=== PATIENT | male | born 1935 | race Caucasian/White ===

== ENCOUNTER 2025-05-20 18:52 | Inpatient (IN) | payer MEDICARE, OTHER, SELFPAY ==
[2025-05-20 18:06] VITALS: BP 142/91; PULSE 96; RESP 17; TEMP 36.7; O2SAT 91; BMI 22.6
[2025-05-20 19:30] VITALS: PULSE 95; RESP 20; O2SAT 94
--- NOTE | 2025-05-20 20:14 | NURSING ---
Consulted Dr. Wiggins via secure text regarding medications that could not be crushed for NG tube medication administration. Per Dr. Wiggins, discontinue Alfuzosin and Bisacodyl. Secure text viewed and verified.
[2025-05-20 21:14] VITALS: BP 141/81; PULSE 101
[2025-05-20 21:17] VITALS: PULSE 101
[2025-05-20] MEDS: Senna Tablet 1 TABLET NG (21:17)
[2025-05-20] MEDS: Jevity 1.5 1,000 ML 50 ML GT (21:17)
--- OUTSIDE RECORDS SUMMARY | 2025-05-20 21:17 | XMS RPT_ITS | CCD ---
Author Organization [facility] Care Team Providers Care Truer Pinion And Wheel Name Role Phone Don Barrera Unavailable Don Barrera Primary Care Provider Vijay Viveros Unavailable VIJAY VIVEROS Referring Unavailab le DON BARRERA Primary Care Unavaila GLORIA Herr Attending Unavailable DON BARRERA Primary Care Unavaila ble Don Barrera Unavailable Unavailable Barrera Christopher D Unavailable Unavailable Leonardo Ballesteros Unavailable Unavailable ColindresRobb W Unavailable Unavailable Chandler, Kelli Unavailable Unavailable Callaway, Dina Unavailable Unavailable Adelita Linne Unavailable Unavailable Isidoro Quezada Unavailable Unavailable Dioni Elmore Unavailable Unavailable Barrera, Christopher D Unavailable Unavailable [facility] NURSE, [id number] Unavailable Unavailable Colindres II, Robb Unavailable Unavailable Melody Joseph Unavailable Unavailable Isidoro Al Unavailable Unavailable Dew, Santy Unavailable Unavailable Christo, Martine Unavailable Unavailable HEATHER PAREDES Admitting Unavailable HEATHER PAREDES Referring Unavailable DON BARRERA Primary Care Unavaila ble Don Barrera Unavailable Unavailable Don Barrera Primary Care Provider Vijay Viveros Unavailable Don Barrera MD Unavailable Unavailable BarreraAlokophdequan Baptiste Unavailable Unavailable Leonardo Ballesteros Unavailable Unavailable Colindres, Robb W Unavailable Unavailable Barrera Christopher D Unavailable Unavailable Unavailable Don Barrera MD Primary Care Provider Vijay Viveros MD Unavailable Wilson SEVILLA, Vijay De La Paz Unavailable Vijay Viveros MD Unavailable Unavailable Unavailable Don Barrera MD Primary Care Provider Vijay Viveros MD Unavailable Don Barrera Unavailable Heike Adams Unavailable Unavailable Otoniel Salcedo Unavailable Unavailable Yuri SEVILLA, Don Bowman Primary Care Provider Vijay Viveros MD Unavailable Yuri SEVILLA, Don Bowman Primary Care Provider Don Barrera MD Primary Care Provider [phone] Don Barrera MD Unavailable [phone] Yuri, Dr. Don Bowman Primary Care Unav ailmaisha Barrera, Dr. Don Bowman Attending Omairav ailmaisha Adams, Ms. Heike Dickens Attending Donnie Barrera, Dr. Don Bowman Primary Care Abhay Barrera, Dr. Don Bowman Primary Care Una coral Cotto, Dr. Earle Reyes Attending Unavaila sung Adams, Ms. Heike Dickens Attending Donnie Barrera, Dr. Don Bowman Primary Care Unav Don Alexander MD Unavailable [phone] Don Barrera MD Primary Care Provider [phone] Howard Soria OD Unavailable Don Barrera MD Primary Care Provider Don Barrera MD Unavailable [phone] Don Barrera MD Primary Care Provider Don Barrera MD Primary Care Provider [phone] DELTA BANGURA Attending Unavailable DELTA BANGURA Referring Unavailable DON BARRERA Primary Care UnavailDon Villalobos MD Unavailable [phone] Don Barrera MD Primary Care Provider SANCHO MENDOZA., ELADIO Attending Unavailable BARRERA, DON BOWMAN Primary Care Unavaila ble BARRERA, DON BOWMAN Primary Care Unavaila ble SANCHO JR., ELADIO Attending Unavailable BARRERA, DON BOWMAN Primary Care Unavaila ble SANCHO JR., ELADIO Attending Unavailable BARRERA, DON BOWMAN Primary Care Unavaila ble SANCHO JR., ELADIO Attending Unavailable BARRERA, CHRISTOPHER D Attending Unavailable BARRERA, CHRISTOPHER D Referring Unavailable BARRERA, CHRISTOPHER D Primary Care Unavailable BRENDON, OTONIEL Attending Unavailable BARRERA, CHRISTOPHER D Primary Care Unavailable BARRERA, CHRISTOPHER D Attending Unavailable BARRERA, CHRISTOPHER D Primary Care Unavailable BARRERA, CHRISTAILYNER D Attending Unavailable BARRERA, CHRISTOPHER D Referring Unavailable BARRERA, CHRISTOPHER D Primary Care Unavailable BARRERA, CHRISTAILYNER D Attending Unavailable BARRERA, CHRISTOPHER D Primary Care Unavailable BARRERA, CHRISTOPHER D Primary Care Unavailable SANTIAGO MENENDEZ Attending Unavailable BARRERA, CHRISTOPHER D Referring Unavailable BARRERA, CHRISTOPHER D Primary Care Unavailable BARRERA, CHRISTOPHER D Referring Unavailable BARRERA, CHRISTOPHER D Primary Care Unavailable LINCOLN KING Referring Unavailable BARRERA, CHRISTOPHER D Primary Care Unavailable BARRERA, CHRISTOPHER D Primary Care Unavailable CHRISTINELINCOLN E Attending Unavailable BRENDON, OTONIEL Referring Unavailable BARRERA, CHRISTOPHER D Primary Care Unavailable MACK GALEANA Referring Unavailable BARRERA, CHRISTOPHER D Primary Care Unavailable BARRERA, CHRISTOPHER D Referring Unavailable BARRERA, CHRISTOPHER D Primary Care Unavailable BARRERA, CHRISTOPHER D Referring Unavailable BARRERA, CHRISTOPHER D Primary Care Unavailable LINCOLN PATTERSON Attending Unavailable LINCOLN PATTERSON Admitting Unavailable BARRERA, DON BOWMAN Primary Care Unavaila ble BARRERA, CHRISTOPHER D Primary Care Unavailable BARRERA, CHRISTOPHER D Primary Care Unavailable BARRERA, CHRISTOPHER D Primary Care Unavailable SANTIAGO MENENDEZ Referring Unavailable BARRERA, CHRISTOPHER D Primary Care Unavailable FATOU ADORNO Consulting Unavailable KRISTY GIRALDO Admitting Unavailable RUSSELL MONTOYA Attending Unavailable LEONARDO BERGER Referring Unavailable BARRERA, CHRISTOPHER D Primary Care Unavailable SANTIAGO MENENDEZ Referring Unavailable DON BARRERA Primary Care Unavailable Medications Current Medications Medication Drug Class(es) Dates Sig (Normalized) Sig (Original) acetaminophen 325 mg oral tablet (20 sources) Start: 05-20-2025 acetaminophen (Tylenol) 325 mg tablet Indications: Fall, initial encounter , Open fracture of roof of right orbit, initial encounter (Multi) 2 tablets (650 mg) by nasogastric tube route every 6 hours. 05/20/2025 Active Start: 05-11-2025 End: 05-16-2025 650 mg, nasoduodenal tube, E very 6 hours scheduled, First dose (after last modification) on 05/16/25 at 0900, If ordered PRN for pain, nurse is permitted to administer this medication for higher pain scores based on patient preference? Yes Start: 11-11-2023 End: 11-11-2023 acetaminophen (Tylenol) tabl et 650 mg Start: 09-11-2019 End: 09-21-2019 take 2 tablets by mouth every four hours acetaminophen (TYLENOL) 325 MG tablet Take 2 (two) tablets (650 mg total) by mouth every 4 (four) hours for 10 days . 60 tablet 0 09/11/2019 09/21/2019 Start: 09-10-2019 End: 09-11-2019 take 650 mg by mouth every four hours 650 mg, Oral, Every 4 hours scheduled, First dose on 09/10/19 at 1600 take 3000 [IU] by [facility] once daily ACETAMINOPHEN (TYLENOL EXTRA STRENGTH ORAL) Take 3,000 Units by mouth once daily. 0 Active End: 09-11-2019 Acetaminophen 500 MG Oral Ta blet Refills: 0 DO Active Comment on above: Take 3,000 Units by mouth once daily. acetaminophen 325 mg / oxyCODONE hydrochloride 5 mg oral tablet (10 sources) Opioid Agonist Start: 04-13-20 End: 05-09-20 oxyCODONE-acetamino phen (PERCOCET) 5-325 mg per tablet alendronic acid 70 mg oral tablet (11 sources) Bisphosphonate Start: 10-03-20 End: 09-28-20 take 1 tablet by mouth every week alendronate (FOSAMAX) 70 mg tablet Take 70 mg by mouth one time a week. 0 10/03/2020 Active Start: 08-20-2020 End: 05-09-2021 alendronate (FOSAMAX) 70 MG tablet Take 1 (one) tablet (70 mg total) by mouth every 7 days (full glass of water on an empty stomach). Remain upright and do not eat for next 30 min . 4 tablet 2 08/20/2020 05/09/2021 Discontinued Comment on above: Take 1 tablet by miquel th one time a week. 24 hr alfuzosin hydrochloride 10 mg extended release oral tablet (20 sources) alpha-Adrenergic Eneida Start: 07-03-2024 take 1 tablet by mouth once daily alfuzosin (Uroxatral) 10 mg 24 hr tablet Indications: Benign prostatic hyperplasia with lower urinary tract symptoms, symptom details unspecified TAKE 1 TABLET BY MOUTH ONCE DAILY DO NOT CRUSH, CHEW, OR SPLIT 90 tablet 3 07/03/2024 Active Start: 08-06-2023 End: 12-16-2023 take 1 tablet by mouth once daily alfuzosin SR (UROXATRAL) 10 mg 24 hr tablet Take 1 tablet by mouth once daily. 0 08/06/2023 Active Comment on above: Take 1 tablet by miquel once daily. amitriptyline hydrochloride 10 mg oral tablet (20 sources) Tricyclic Antidepressant Start: 024 End: take 1 tablet by mouth once daily at bedtime amitriptyline (Elavil) 10 mg tablet Indications: Migraine with visual aura Take 1 tablet (10 mg) by mouth once daily at bedtime. 90 tablet 3 09/01/2024 09/01/2025 Active amLODIPine 5 mg oral tablet (20 sources) Dihydropyridine Calcium Channel Eneida Start: 014 End: take 1 tablet by mouth once daily amLODIPine (Norvasc) 5 mg tablet Indications: Hypertension, unspecified type Take 1 tablet (5 mg) by mouth once daily. 90 tablet 3 09/01/2024 09/01/2025 Active amLODIPine Besyl ate TABS 5 mg-1 tab daily Refills: 0 DO Active amLODIPine Besyl ate TABS 5 mg-1 tab daily Refills: 0 Active Comment on above: 5 mg every morning. amoxicillin 875 mg oral tablet (3 sources) Penicillin-class Antibacterial Start: 4 End: take 1 tablet by mouth twice daily in the morning amoxicillin (Amoxil) 875 mg tablet Indications: Acute non-recurrent maxillary sinusitis Take 1 tablet (875 mg) by mouth 2 times a day for 10 days. 20 tablet 09/02/2024 9:35 AM EST 09/01/2024 09/12/2024 Active Start: 11-04-2021 End: 11-15-2021 take 1 capsule by mouth three times daily Amoxicillin 500 MG Oral Capsule TAKE 1 CAPSULE 3 TIMES DAILY UNTIL GONE. Quantity: 21 Refills: 1 Ordered: 04-Nov-2021 David Sheppard MD Start : 04-Nov-2021 End : 15-Nov-2021 Complete aspirin 81 mg chewable tablet (20 sources) Nonsteroidal Anti-inflammatory Drug Start: 05-17-2025 take 81 mg by mouth once daily 81 mg, oral, Daily, First dose on 05/17/25 at 1530 Start: 01-10-2021 End: 05-07-2025 take 1 tablet by mouth once daily aspirin 325 mg tablet Take 1 tablet (325 mg) by mouth once daily. 01/10/2021 05/07/2025 Discontinued (Therapy completed) Start: 01-10-2021 aspirin 325 mg tablet Take by mouth q 24 HR. 0 01/10/2021 Active Start: 09-10-2019 End: 10-11-2019 take 1 tablet by mouth twice daily aspirin 325 MG EC tablet Take 1 (one) tablet (325 mg total) by mouth 2 (two) times a day . 60 tablet 0 09/11/2019 10/11/2019 Active End: 09-11-2019 take 1 tablet by mouth once daily aspirin 81 mg EC tablet Take 1 tablet (81 mg) by mouth once daily. Active take 1 tablet by miquel th once daily aspirin 325 mg oral delayed release tablet ; 1 tab(s) orally once a day Quantity: 0 Refills: 0 Ordered: 23-Sep-2022 Shires, Paige Generic Substitution Allowed Aspirin 81 MG TA BS TAKE 1 TABLET DAILY. Refills: 0 DO Active Comment on above: Take by mouth q 24 H R. aspirin 81 mg / calcium carbonate 777 mg oral tablet (16 sources) Platelet Aggregation Inhibitor, Nonsteroidal Anti-inflammatory Drug End: 05-09-20 21 take 1 tablet by mouth every twenty-four hours aspirin-calcium carbonate 81 mg-300 mg calcium(777 mg) Tab Take 1 Unspecified by mouth daily . 0 05/09/2021 Discontinued benazepril hydrochloride 40 mg oral tablet (20 sources) Angiotensin Converting Enzyme Inhibitor Start: 09-08-20 End: 09-01-20 take 1 tablet by mouth once daily benazepril (Lotensin) 40 mg tablet Indications: Hypertension, unspecified type Take 1 tablet (40 mg) by mouth once daily. 90 tablet 3 09/01/2024 09/01/2025 Active take 2 tablets by mouth once sid ly benazepril 20 mg oral tablet ; 2 tab(s) orally once a day Quantity: 0 Refills: 0 Ordered: 12-Apr-2020 Mily Amado Generic Substitution Allowed Comment on above: 40 mg every morning. bisacodyl 5 mg delayed release oral tablet (2 sources) Stimulant Laxative Star t: 04-22 take 1 tablet by mouth once daily as needed for constipation bisacodyl (Dulcolax) 5 mg EC tablet Indications: Fall, initial encounter , Open fracture of roof of right orbit, initial encounter (Multi) Take 1 tablet (5 mg) by mouth once daily as needed for constipation. Do not crush, chew, or split. 05/20/2025 Active Carboxymethylcellulose (3 sources) take 1 drop(s) into the eye(s) twice daily CARBOXYMETHYLCELLULOSE SODIUM (REFRESH TEARS OPHTHALMIC) Use 1 Drop in eyes twice daily. Both eyes 0 Active Comment on above: Use 1 Drop in eyes t wice daily. Both eyes cholecalciferol 0.125 mg oral tablet (3 sources) Vitamin D Star t: 04-23 take 1 tablet by mouth once daily cholecalciferol (Vitamin D-3) 125 mcg (5,000 units) tablet Indications: Fall, initial encounter , Open fracture of roof of right orbit, initial encounter (Multi) Take 1 tablet (125 mcg) by mouth once daily. 05/21/2025 Active Start: 05-16-2025 125 mcg, nasod uodenal tube, Daily, First dose (after last modification) on 05/16/25 at 0900 Start: 05-13-2025 End: 05-13-2025 take 50 ug by mouth once daily 50 mcg, oral, Daily, Fi rst dose on Sun05/13/25 at 1100 chondroitin sulfates 400 mg / glucosamine hydrochloride 500 mg oral tablet (20 sources) End: 05-09-2021 take 1 tablet by mouth three times daily glucosamine-chondroitin 500-400 mg tablet Take 1 tablet by mouth 3 (three) times a day . 0 05/09/2021 Discontinued doxycycline monohydrate 100 mg oral capsule (4 sources) Tetracycline- class Drug Start: 09-27-2023 End: 11-05-2023 take 1 capsule by mouth twice daily at mealtime doxycycline (Monodox) 100 mg capsule Take 1 capsule (100 mg) by mouth 2 times a day with food for 7 days 14 capsule 0 09/27/2023 11/05/2023 Discontinued (Med List Cleanup) 0.3 ml enoxaparin sodium 100 mg/ml prefilled syringe (2 sources) Low Molecular Weight Heparin Start: 05-21-2025 End: 06-20-2025 inject 0.3 mL by subcutaneous injection every twelve hours enoxaparin (Lovenox) 30 mg/0.3 mL syringe Indications: Fall, initial encounter , Open fracture of roof of right orbit, initial encounter (Multi) Inject 0.3 mL (30 mg) under the skin every 12 hours. 05/21/2025 06/20/2025 Active Start: 05-13-2025 inject 30 mg by subc utaneous injection every twelve hours 30 mg, subcutaneous, Every 12 hours scheduled, First dose on Sun05/13/25 at 1200 escitalopram 5 mg oral tablet (20 sources) Serotonin Reuptake Inhibitor Start: 11-19-2023 End: 09-01-2025 take 1 tablet by mouth once daily escitalopram (Lexapro) 5 mg tablet Indications: MARIANGEL (generalized anxiety disorder) Take 1 tablet (5 mg) by mouth once daily. 90 tablet 3 09/01/2024 09/01/2025 Active fluticasone propionate 0.05 mg/actuat metered dose nasal spray (20 sources) Corticosteroid End: 11-01-2023 fluticasone (Flonase) 50 mcg/actuation nasal spray Administer into affected nostril(s) once every 24 hours. 0 11/01/2023 Discontinued (Therapy completed) End: 05-09-2021 take 2 doses nasal route once daily fluticasone propionate (FLONASE) 50 mcg/actuation nasal spray Instill 2 Unspecified into each nostril daily . 0 05/09/2021 Discontinued Comment on above: Use in the nose q 24 HR. folic acid 1 mg oral tablet (20 sources) Start: 10-06-2022 End: 09-01-2025 take 1 tablet by mouth once daily folic acid (Folvite) 1 mg tablet Indications: Vertigo , Palpitations Take 2 tablets (2 mg) by mouth once daily. 180 tablet 3 09/01/2024 09/01/2025 Active Start: 09-10-2019 End: 09-11-2019 take 2 mg by mouth once daily 2 mg, Oral, Daily, First dose on Sun09/10/19 at 1600 take 1 mg by mouth twice daily F OLIC ACID ORAL Take 1 mg by mouth twice daily. 0 Active take 2 tablets by mo uth once daily folic acid 1 mg tablet Take 2 mg by mouth once daily. 0 Active Comment on above: Take 1 mg by mouth t wice daily. Take 2 mg by mouth o nce daily. 24 hr isosorbide mononitrate 30 mg extended release oral tablet (13 sources) Start: 11-04-2014 End: 04-22-2018 isosorbide mononitrate ER (IMDUR) 30 mg 24 hr tablet 30 mg every morning. 0 11/04/2014 Active Start: 11-04-2014 End: 11-15-2023 isosorbide mononitrate ER (I mdur) 30 mg 24 hr tablet 1 tablet (30 mg). 0 11/04/2014 11/15/2023 Discontinued (Therapy completed) Comment on above: 30 mg every morning. lidocaine hydrochloride 0.02 mg/mg topical gel (3 sources) Antiarrhythmic, Amide Local Anesthetic Start: 05-15-2025 1 Application, Topical, Once as needed, pain mild (1-3), first line, tube placement and maintenance, Starting on Sun05/15/25 at 1321, For 1 dose, Apply to affected area. Start: 10-24-2023 End: 10-24-2023 lidocaine 20 mg/mL (2 %) inj ection 3 mL methotrexate 2.5 mg oral tablet (20 sources) Folate Analog Metabolic Inhibitor Start: 04-07-2020 take 8 tablets by mouth every week methotrexate (Trexall) 2.5 mg tablet Take 8 tablets (20 mg total) by mouth 1 (one) time per week. On Sundays04/07/2020 Active Start: 04-07-2020 take 7 tablets by mo uth every week Methotrexate 2.5 MG Oral Tablet TAKE 7 TABLETS PER WEEK. Quantity: 0 Refills: 0 Ordered: 07-Apr-2020 DO Start : 07-Apr-2020 Active Start: 04-07-2020 take 6 tablets by mo uth every week methotrexate (Trexall) 2.5 mg tablet Take 6 tablets (15 mg total) by mouth 1 (one) time per week. 04/07/2020 Active Start: 09-29-2016 [facility] methotrexate 2.5 mg tablet Take 2.5 mg by mouth once each week. 0 09/29/2016 Active take 6 tablets by mo uth every week Trexall 5 MG Oral Tablet TAKE 6 TABLET Weekly Refills: 0 DO Active take 3 tablets by mo uth every week methotrexate 2.5 MG tablet Take 7.5 mg by mouth once a week. 0 Active Comment on above: Take 2.5 mg by mouth once each week. metoprolol tartrate 25 mg oral tablet (20 sources) beta-Adrenergic Eneida Start: 05-14-2025 End: 05-16-2025 take 2.5 mg intravenously every six hours 2.5 mg, intravenous, Every 6 hours, First dose (after last modification) on Mesha 05/14/25 at 0715 Start: 05-11-2025 End: 05-16-2025 12.5 mg, nasoduodenal tube, 2 times daily, First dose (after last modification) on 05/16/25 at 0900, Hold for SBP Start: 09-10-2019 End: 05-09-2021 take 50 mg by mouth twice daily 50 mg, Oral, 2 times daily, First dose on 09/10/19 at 2100 Start: 11-04-2014 End: 09-01-2025 take 1 tablet by mouth twice daily metoprolol tartrate (Lopressor) 25 mg tablet Indications: Hypertension, unspecified type Take 1 tablet (25 mg) by mouth 2 times a day. 180 tablet 3 09/01/2024 09/01/2025 Active Comment on above: 1 tablet twice daily . multivitamin (THERAGRAN) per tablet (20 sources) take 1 tablet by mouth once daily multivitamin (THERAGRAN) per tablet Take 1 (one) tablet by mouth daily . Active take 1 tablet by mouth once [place] multivitamin (THERAGRAN) per tablet Take 1 (one) tablet by mouth daily . 0 Active take 1 tablet by mouth once [place] multivitamin (THERAGRAN) per tablet Take 1 tablet by mouth daily. 0 Active Multivitamin Tablet (1 source) take 1 tablet by mouth once daily multivitamin (THERAGRAN) per tablet Take 1 tablet by mouth daily. 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 Take before meals. 90 capsule 3 09/01/2024 09/01/2025 Active Start: 09-08-2014 omeprazole ([place] ILOSEC) 20 mg capsule 20 mg once daily. 0 09/08/2014 Active take 2 capsules by m outh once daily omeprazole (PRILOSEC) 20 MG capsule Take 2 (two) capsules (40 mg total) by mouth daily . Active take 1 tablet by miquel th once daily in the morning Omeprazole 20 MG Oral Tablet Delayed Release 1 EVERY AM Refills: 0 Active Comment on above: 20 mg once daily. ondansetron 4 mg oral tablet (4 sources) Serotonin-3 Receptor Antagonist Start: 05-20-2025 ondansetron (Zofran) 4 mg tablet Indications: Fall, initial encounter , Open fracture of roof of right orbit, initial encounter (Multi) 1 tablet (4 mg) by nasogastric tube route every 8 hours if needed for nausea or vomiting. 05/20/2025 Active Start: 05-16-2025 take 1 tablet by miquel th every eight hours as needed ondansetron (Zofran) tablet 4 mg Start: 05-10-2025 End: 05-10-2025 4 mg, intravenous, Once, On 05/10/25 at 1705, For 1 dose, When administering via IV Push, administer over 3-5 minutes. Start: 09-10-2019 End: 09-11-2019 take 4 mg intravenous route every six hours as needed 4 mg, Intravenous, Every 6 hours PRN, nausea, vomiting, Starting 09/10/19 at 1411 oxyCODONE hydrochloride 5 mg oral tablet (6 sources) Opioid Agonist Start: 05-20-2025 End: 05-20-2025 oxyCODONE (Roxicodone) 5 mg immediate release tablet Indications: Fall, initial encounter , Open fracture of roof of right orbit, initial encounter (Multi) 1 tablet (5 mg) by nasogastric tube route every 4 hours if needed for severe pain (7 - 10). 15 tablet 05/20/2025 Active Start: 05-11-2025 End: 05-16-2025 take 1 tablet by mouth every four hours as needed 5 mg, nasoduodenal tube, Every 4 hours PRN, pain severe (7-10), first line, Starting on 05/16/25 at 0717, If ordered PRN for pain, nurse is permitted to administer this medication for higher pain scores based on patient preference? Yes Start: 05-11-2025 End: 05-16-2025 take 1 tablet by mouth every six hours as needed 2.5 mg, nasoduodenal tube, Every 6 hours PRN, pain moderate (4-6), first line, Starting on 05/16/25 at 0717, If ordered PRN for pain, nurse is permitted to administer this medication for higher pain scores based on patient preference? Yes oxygen (O2) gas therapy (2 sources) Start: 05-20-2025 oxygen (O2) ga s therapy Indications: Fall, initial encounter , Open fracture of roof of right orbit, initial encounter (Multi) Inhale 2 L/min at 120,000 mL/hr once daily as needed (as needed). 05/20/2025 Active Start: 05-20-2025 End: 05-20-2025 oxygen (O2) gas therapy Madeline cations: Fall, initial encounter , Open fracture of roof of right orbit, initial encounter (Multi) Inhale 2 L/min at 120,000 mL/hr continuously. 05/20/2025 05/20/2025 Discontinued pantoprazole 40 mg delayed release oral tablet (5 sources) Proton Pump Inhibitor Start: 05-21-2025 take 1 tablet by mouth once daily before mealtime pantoprazole (ProtoNix) 40 mg EC tablet Indications: Fall, initial encounter , Open fracture of roof of right orbit, initial encounter (Multi) Take 1 tablet (40 mg) by mouth once daily in the morning. Take before meals. Do not crush, chew, or split. 05/21/2025 Active Start: 05-16-2025 take 40 mg by mouth once daily before breakfast 40 mg, oral, Daily before breakfast, First dose on 05/16/25 at 0745, Do not crush, chew, or split. Start: 05-14-2025 End: 05-16-2025 40 mg, intravenous, Daily, F irst dose on Mesha 05/14/25 at 0900, Reconstitute each 40 mg vial with 10 mL NS to make 4 mg/mL solution. Start: 05-11-2025 End: 05-14-2025 take 40 mg by mouth once daily before breakfast 40 mg, oral, Daily before breakfast, First dose on 05/11/25 at 0700, Do not crush, chew, or split. Start: 09-10-2019 End: 09-11-2019 take 20 mg by mouth once daily 20 mg, Oral, Daily, Fir st dose on Sun09/10/19 at 1600 DO NOT CRUSH OR CHEW. phenylephrine hydrochloride 25 mg/ml ophthalmic solution (3 sources) alpha-1 Adrenergic Agonist Start: 03-05-2024 End: 03-05-2024 PHENYLephrine 2.5 % 1 Drop (AK-DILATE, JEFFREY-SYNEPHRINE) Start: 08-29-2023 End: 08-29-2023 PHENYLephrine 2.5 % 1 Drop ( AK-DILATE, JEFFREY-SYNEPHRINE) polyethylene glycol 3350 09250 mg powder for oral solution (11 sources) Osmotic Laxative Start: 05-21-2025 polyethylene glycol (Glycolax, Miralax) 17 gram packet Indications: Fall, initial encounter , Open fracture of roof of right orbit, initial encounter (Multi) 17 g by nasoduodenal tube route once daily. 05/21/2025 Active Start: 05-11-2025 End: 05-16-2025 17 g, nasoduodenal tube, Sid ly, First dose (after last modification) on 05/16/25 at 0900, Bowel Regimen - for prevention of constipation. Start: 09-11-2019 End: 09-18-2019 polyethylene glycol (MIRALAX ) 17 gram powder Take 17 (seventeen) g by mouth daily for 7 days . 255 g 0 09/11/2019 09/18/2019 pravastatin sodium 20 mg oral tablet (20 sources) HMG-CoA Reductase Inhibitor Start: 05-16-2025 40 mg, nasogastric tube, Nightly, First dose (after last modification) on 05/16/25 at 2100 Start: 05-11-2025 End: 05-16-2025 take 40 mg by mouth once daily 40 mg, oral, Nightly, F irst dose on 05/11/25 at 2100 Start: 09-08-2014 End: 09-01-2025 take 1 tablet by mouth once daily at bedtime pravastatin (Pravachol) 40 mg tablet Indications: Hyperlipidemia, unspecified hyperlipidemia type Take 1 tablet (40 mg) by mouth once daily at bedtime. 90 tablet 3 09/01/2024 09/01/2025 Active Comment on above: 40 mg once daily. proparacaine hydrochloride 5 mg/ml ophthalmic solution (4 sources) Local Anesthetic Start: 03-05-2024 End: 03-05-2024 proparacaine 0.5 % 1 Drop (ALCAINE) Start: 08-29-2023 End: 08-29-2023 proparacaine 0.5 % 1 Drop (A LCAINE) Start: 02-21-2023 End: 02-21-2023 proparacaine 0.5 % 1 Drop (A LCAINE) sennosides, fci 8.6 mg oral tablet (2 sources) Start: 05-20-2025 sennosides (Se nokot) 8.6 mg tablet Indications: Fall, initial encounter , Open fracture of roof of right orbit, initial encounter (Multi) 1 tablet (8.6 mg) by nasogastric tube route as needed at bedtime for constipation. 05/20/2025 Active Start: 05-16-2025 8.6 mg (1 tabl et), nasoduodenal tube, Nightly PRN, constipation, first line, Starting on 05/16/25 at 0717 sertraline 25 mg oral tablet (8 sources) Serotonin Reuptake Inhibitor Start: 11-05-2023 End: 11-04-2024 take 1 tablet by mouth once daily sertraline (Zoloft) 25 mg tablet Indications: MARIANGEL (generalized anxiety disorder) Take 1 tablet (25 mg) by mouth once daily. 30 tablet 11 11/05/2023 11/04/2024 Active tropicamide 10 mg/ml ophthalmic solution (4 sources) Anticholinergic Start: 03-05-2024 End: 03-05-2024 tropicamide 1 % 1 Drop (MYDRIACYL) Start: 08-29-2023 End: 08-29-2023 tropicamide 1 % 1 Drop (MYDR IACYL) Start: 02-21-2023 End: 02-21-2023 tropicamide 1 % 1 Drop (MYDR IACYL) vit A/vit C/vit E/zinc/coppe r (PRESERVISION AREDS ORAL) (4 sources) take 1 tablet by miquel th twice daily vit A/vit C/vit E/zinc/copper (PRESERVISION AREDS ORAL) Take 1 tablet by mouth 2 times a day. Active take 1 tablet by mouth once [place] vit A/vit C/vit E/zinc/copper (PRESERVISION AREDS ORAL) Take 1 tablet by mouth once daily. Active vit C/E/zinc ox/roly/lut/libby x (ICAPS AREDS2 ORAL) (1 source) vit C/E/zinc ox/ roly/lut/zeax (ICAPS AREDS2 ORAL) Take by mouth . Active vitamin b12 1 mg oral tablet (3 sources) Vitamin B12 Start: 05-21-2025 cyanocobalamin (Vitamin B-12 ) 1,000 mcg tablet Indications: Fall, initial encounter , Open fracture of roof of right orbit, initial encounter (Multi) 1 tablet (1,000 mcg) by nasogastric tube route once daily. 05/21/2025 Active Start: 05-13-2025 End: 05-16-2025 1,000 mcg, nasoduodenal tube , Daily, First dose (after last modification) on 05/16/25 at 0900 Completed/Discontinued Medications Medication Drug Class(es) Dates Sig (Normalized) Sig (Original) ampicillin-sulbactam (Unasyn) 3 g in sodium chloride 0.9% IV 100 mL (1 source) Start: 05-10-2025 End: 05-11-2025 take 3 g intravenously every six hours 3 g, intravenous, at 200 mL/hr, Administer over 30 Minutes, Every 6 hours, First dose on Sun05/10/25 at 2315, Possible open fracture of the right orbit Vial-Bag System, Suspected Indication (Select all that apply): Sinusitis/Other ENT, Type of Therapy: Empiric, Indications: Sinusitis/Other ENT bacitracin zinc 0.5 unt/mg topical ointment (1 source) Start: 05-10-2025 End: 05-10-2025 1 Application, Topical, Once, On [place] 05/10/25 at 1405, For 1 dose, Apply to: right hand skin avulsions barium sulfate (E-Z-Paque) 96 % (w/w) suspension 176 mL (1 source) Start: 11-06-2023 End: 11-06-2023 barium sulfate (E-Z-Paque) 96 % (w/w) suspension 176 mL barium sulfate (EZ HD BARIUM) 98 % suspension 347 mL (1 source) Start: 11-06-2023 End: 11-06-2023 barium sulfate (EZ HD BARIUM) 98 % suspension 347 mL barium sulfate (Varibar Honey) 40 %(w/v), 29% (w/w)(1500 CPS) suspension 40 mL (1 source) Start: 05-14-2025 End: 05-14-2025 take 40 mL by mouth once 40 mL, oral, Once in imaging, Starting on [facility] 05/14/25 at 1356, For 1 dose barium sulfate (Varibar Kemmerer) 40 % (w/v) suspension 30 mL (1 source) Start: 05-14-2025 End: 05-14-2025 take 30 mL by mouth once 30 mL, oral, Once in imaging, Starting on [facility] 05/14/25 at 1356, For 1 dose barium sulfate (Varibar Pudding) 40 % (w/v), 30% (w/w) oral paste 50 mL (1 source) Start: 05-14-2025 End: 05-14-2025 50 mL, oral, Once in imaging, Starting on [facility] 05/14/25 at 1356, For 1 dose, Administer with oral syringe or spoon. Max cumulative dose of 30 mL. Discard any unused product 21 days after tube opened. barium sulfate (Varibar THIN Liquid) 81 % (w/w) suspension 30 mL (1 source) Start: 05-14-2025 End: 05-14-2025 take 30 mL by mouth once 30 mL, oral, Once in imaging, Starting on [place] 05/14/25 at 1356, For 1 dose benoxinate hydrochloride 4 mg/ml / fluorescein sodium 3 mg/ml ophthalmic solution (2 sources) Diagnostic Dye Start: 08-29-2023 End: 08-29-2023 fluorescein-benox inate 0.3-0.4 % 1 Drop (FLURESS) Start: 02-21-2023 End: 02-21-2023 fluorescein-benoxinate 0.25- 0.4 % 1 Drop (FLURESS) benzonatate 200 mg oral capsule (3 sources) Non-narcotic Antitussive Start: 09-18-2022 take 1 capsule by mouth three times daily as needed Benzonatate 200 MG Oral Capsule TAKE 1 CAPSULE 3 TIMES DAILY NEEDED. Quantity: 20 Refills: 1 Ordered: 18-Sep-2022 Don Barrera MD Start : 18-Sep-2022 Active take 1 capsule by mouth once sid ly benzonatate 200 mg oral capsule ; 1 cap(s) orally once a day Quantity: 0 Refills: 0 Ordered: 23-Sep-2022 Shires, Paige Generic Substitution Allowed calcium chloride 0.0014 meq/ml / potassium chloride 0.004 meq/ml / sodium chloride 0.103 meq/ml / sodium lactate 0.028 meq/ml injectable solution (3 sources) Start: 09-10-2019 End: 09-11-2019 take 100 mL intravenous route every hour 100 mL/hr, Intravenous, Continuous, Starting Sun09/10/19 at 1500 Saline lock once tolerating oral intake without nausea Start: 09-10-2019 End: 09-11-2019 lactated Ringers infusion ceFAZolin 1000 mg injection (1 source) Cephalosporin Antibacterial Start: 09-10-2019 End: 09-11-2019 take 1000 mg intravenous route every eight hours 1,000 mg, Intravenous, at 100 mL/hr, Every 8 hours, First dose on Sun09/10/19 at 1345, For 3 doses, PACU to Post Procedure Starting in pacu. Indication (POST PROCEDURE): Ortho dexamethasone 1 mg/ml / tobramycin 3 mg/ml ophthalmic suspension (4 sources) Aminoglycoside Antibacterial, Corticosteroid Start: 11-11-2024 End: 05-07-2025 take 1 drop(s) into the eye(s) four times daily in the evening tobramycin-dexame thasone (Tobradex) ophthalmic suspension Apply 1 drop into affected eye four times a day 5 mL 11/11/2024 4:36 PM EST 11/11/2024 05/07/2025 Discontinued (Med List Cleanup) Disability Placard (15 sources) Start: 09-30-2021 Disability Placard 5 YR MAX Quantity: 1 Refills: 0 Ordered: 30-Sep-2021 Don Barrera MD Start : 30-Sep-2021 Active docusate sodium 50 mg / sennosides, fci 8.6 mg oral tablet (1 source) Start: 09-10-2019 End: 09-11-2019 take 1 tablet by mouth twice daily 1 tablet, Oral, 2 times daily, First dose on Sun09/10/19 at 2100 NOT for abdominal surgery patients. &n bsp;Hold for loose stools. Do Not Crush or Chew if administering orally due to bitter taste. May be crushed if given via tube. EPINEPHrine 0.01 mg/ml / lidocaine hydrochloride 10 mg/ml injectable solution (1 source) Antiarrhythmic, alpha-Adrenergic Agonist, beta-Adrenergic Agonist, Catecholamine, Amide Local Anesthetic Start: 05-10-2025 End: 05-10-2025 20 mL, infiltration, Once, On 05/10/25 at 1405, For 1 dose flu vacc [id number], 65yr up,-PF (Fluzone High-Dose Quad) syringe (3 sources) Start: 07-16-2023 End: 09-28-2023 flu vacc [id number], 65yr up,-PF (Fluzone High-Dose Quad) syringe INJECT DIRECTED .7 mL 0 07/16/2023 09/28/2023 Discontinued (Med List Cleanup) Start: 07-16-2023 End: 07-15-2024 flu vacc [id number], 65yr up, -PF (Fluzone High-Dose Quad) syringe INJECT DIRECTED .7 mL 0 07/16/2023 07/15/2024 Active 50 ml gentamicin 1.6 mg/ml injection (1 source) Start: 09-10-2019 End: 09-10-2019 gentamicin IVPB 80 mg in 50 ml (premix) Glucosamine Chondr 500 Compl ex Oral Capsule (10 sources) Glucosamine Amador dr 500 Complex Oral Capsule takes 2 tabs daily Refills: 0 DO Active Glucosamine Am[address] dr 500 Complex Oral Capsule takes 2 tabs daily Refills: 0 Active 250 ml glucose 50 mg/ml / sodium chloride 9 mg/ml injection (1 source) Start: 05-14-2025 End: 05-15-2025 take 100 mL intravenously every hour 100 mL/hr, intravenous, Continuous, Starting on Sun05/14/25 at 1015, For 1 day 0.5 ml HYDROmorphone hydrochloride 1 mg/ml prefilled syringe (1 source) Opioid Agonist Start: 05-10-2025 End: 05-10-2025 0.5 mg, intravenous, Once, On Sun05/10/25 at 1935, For 1 dose iohexol (OMNIPaque) 350 mg iodine/mL solution 95 mL (1 source) Start: 05-10-2025 End: 05-10-2025 95 mL, intravenous, Once in imaging, Starting on Sun05/10/25 at 1506, For 1 dose 1 ml ketorolac tromethamine 15 mg/ml injection (1 source) Nonsteroidal Anti-inflammatory Drug, Cyclooxygenase Inhibitor Start: 09-10-2019 End: 09-11-2019 15 mg, Intravenous, Every 6 hours scheduled, First dose on Sun09/10/19 at 1500, For 48 hours levETIRAcetam 500 mg oral tablet (3 sources) Start: 05-16-2025 End: 05-17-2025 500 mg, nasoduodenal tube, 2 times daily, First dose on Sun05/16/25 at 0900, For 2 days Start: 05-14-2025 End: 05-16-2025 take 500 mg intravenously every twelve hours 500 mg, intravenous, at 400 mL/hr, Administer over 15 Minutes, Every 12 hours, First dose on Sun05/14/25 at 0715 Start: 05-11-2025 End: 05-14-2025 take 500 mg by mouth twice daily 500 mg, oral, 2 times daily, First dose (after last modification) on Sun05/11/25 at 0535, For 14 doses lisinopril 20 mg oral tablet (1 source) Angiotensin Converting Enzyme Inhibitor Start: 09-10-2019 End: 09-11-2019 take 40 mg by mouth once daily at lunch 40 mg, Oral, Daily with lunch, First dose on Sun09/10/19 at 1600 magnesium hydroxide 80 mg/ml oral suspension (1 source) Start: 09-10-2019 End: 09-11-2019 take 2400 mg by mouth once daily as needed for constipation 2,400 mg (30 mL), Oral, Daily PRN, constipation, contipation, Starting Sun09/10/19 at 1411 50 ml magnesium sulfate 40 mg/ml injection (1 source) Start: 05-12-2025 End: 05-12-2025 2 g, intravenous, at 25 mL/hr, Administer over 2 Hours, Once, On Sun05/12/25 at 1445, For 1 dose meclizine hydrochloride 25 mg oral tablet (20 sources) Antiemetic Start: 09-01-2024 End: 09-01-2025 take 1 tablet by mouth three times daily as needed for dizziness meclizine (Antivert) 25 mg tablet Indications: Vertigo Take 1 tablet (25 mg) by mouth 3 times a day as needed for dizziness. 30 tablet 11 09/02/2024 3:48 PM EST 09/01/2024 05/07/2025 Discontinued (Therapy completed) Start: 12-07-2023 End: 12-17-2023 take 1 tablet by mouth three times daily as needed for dizziness meclizine (Antivert) 25 mg tablet Indications: Dizziness Take 1 tablet (25 mg) by mouth 3 times a day as needed for dizziness for up to 10 days. 30 tablet 0 12/07/2023 12/17/2023 Active Start: 07-22-2023 End: 12-05-2023 take 1 tablet by mouth three times daily as needed for dizziness meclizine (Antivert) 25 mg tablet Indications: Vertigo Take 1 tablet (25 mg) by mouth 3 times a day as needed for dizziness. 30 tablet 0 11/05/2023 12/05/2023 Active Meperidine (1 source) Opioid Agonist Start: 09-10-2019 End: 09-10-2019 6.25 mg, Intravenous, Every 5 min PRN, shivering, Starting Sun09/10/19 at 1216, For 2 doses, PACU (only) Do not give more than 25 mg total. RESTRICTED to use in rigors OR pain management in patients with a documented opioid allergy. Please select this medication s indication. Rigors 1 ml morphine sulfate 2 mg/ml prefilled syringe (1 source) Opioid Agonist Start: 05-10-2025 End: 05-10-2025 2 mg, intravenous, Once, On Sun05/10/25 at 1705, For 1 dose Multi Vitamin Daily TABS (20 sources) Multi Vitamin Da phill TABS TAKE 1 TABLET DAILY. Refills: 0 DO Active Multi Vitamin Da phill TABS TAKE 1 TABLET DAILY. Refills: 0 Active Multi Vitamin Daily TABS (20 sources) Multi Vitamin Da phill TABS TAKE 1 TABLET DAILY. Quantity: 0 Refills: 0 Ordered: 29-Sep-2019 DO Active Multi Vitamin Da phill TABS TAKE 1 TABLET DAILY. Refills: 0 Active multivitamin (THERAGRAN) per tablet 1 tablet (1 source) Start: 09-10-2019 End: 09-11-2019 take 1 tablet by mouth once daily 1 tablet, Oral, Daily, First dose on Sun09/10/19 at 1600 multivitamin tablet (20 sources) End: 05-07-2025 take 1 tablet by mouth once daily multivitamin tablet Take 1 tablet by mouth once daily. 05/07/2025 Discontinued (Therapy completed) take 1 tablet by mouth once [place] multivitamin tablet Take 1 tablet by mouth once daily. Active take 1 tablet by mouth once [place] multivitamin tablet Take 1 tablet by mouth once daily. 0 Active naloxone (NARCAN) injection 0.1 mg (1 source) Start: 09-10-2019 End: 09-11-2019 naloxone (NARCAN) injection 0.1 mg nitroglycerin 0.4 mg sublingual tablet (20 sources) Nitrate Vasodilator End: 02-12-2024 nitroGLYCERIN (NITROSTAT) 0.[address] 1 (one) tablet (0.4 mg total) under the tongue every 5 (five) minutes as needed . 0 02/12/2024 Discontinued (Patient's Request) Paxlovid (300/100) 20 x 150 MG & 10 x 100MG Oral Tablet Therapy Pack (3 sources) Start: 09-04-2022 Paxlovid (300/ 100) 20 x 150 MG & 10 x 100MG Oral Tablet Therapy Pack 3OOMG NIRMATRELVIR/100MG RITONAXIR BID FOR 5 DAYS Quantity: 1 Refills: 0 Ordered: 04-Sep-2022 Don Barrera MD Start : 04-Sep-2022 Active Hold cholesterol medicine while taking Paxlovid, EUA, 300 mg (150 mg x 2)-100 mg tablet therapy pack (7 sources) Start: 09-04-2022 End: 02-12-2024 Paxlovid, EUA, 300 mg (150 mg x 2)-100 mg tablet therapy pack Start: 09-04-2022 Paxlovid, EUA, 300 mg (150 mg x 2)-100 mg tablet therapy pack microencapsulated potassium chloride 20 meq extended release oral tablet (1 source) Start: 05-12-2025 End: 05-12-2025 20 mEq, oral, Once, On Sun05/12/25 at 1445, For 1 dose, Best given with food and plenty of water to minimize gastric irritation. Do not crush or chew. predniSONE 10 mg oral tablet (11 sources) Start: 11-11-2024 End: 05-20-2025 take 1 tablet by mouth once daily as needed predniSONE (Deltasone) 10 mg tablet Take 1 Tablet Oral one time daily as needed. Take for 3 to 5 days with a flare. 30 tablet 11/11/2024 4:36 PM EST 11/11/2024 05/20/2025 Discontinued (Stop Taking at Discharge) Start: 09-18-2022 take 2 tablets by [facility] once daily predniSONE 20 MG Oral Tablet 2 once a day Quantity: 10 Refills: 0 Ordered: 18-Sep-2022 Don Barrera MD Start : 18-Sep-2022 Active Start: 08-19-2021 predniSONE 10 MG Oral Tablet TAKE 4 TABLETS DAILY FOR 3 DAYS,3 TABLETS DAILY FOR 3 DAYS, 2 TABLETS DAILY FOR 3 DAYS AND 1 TABLET DAILY FOR 3 DAYS, THEN STOP. Quantity: 30 Refills: 1 Ordered: 19-Aug-2021 Don Barrera MD Start : 19-Aug-2021 Active regadenoson (LEXISCAN) injection 0.4 mg (1 source) Start: 03-08-2020 End: 03-08-2020 regadenoson (LEXISCAN) injection 0.4 mg 1000 ml sodium chloride 9 mg/ml injection (7 sources) Start: 05-13-2025 End: 05-14-2025 take 75 mL intravenously every hour 75 mL/hr, intravenous, Continuous, Starting on Sun05/13/25 at 1930, For 1 day Start: 05-12-2025 End: 05-12-2025 500 mL, intravenous, at 500 mL/hr, Administer over 1 Hours, Once, On Sun05/12/25 at 1325, For 1 dose Start: 05-11-2025 End: 05-11-2025 500 mL, intravenous, at 500 mL/hr, Administer over 1 Hours, Once, On Sun05/11/25 at 1110, For 1 dose Start: 11-15-2023 End: 11-15-2023 sodium chloride 0.9 % bolus 500 mL Start: 11-11-2023 End: 11-11-2023 sodium chloride 0.9 % bolus 1,000 mL Start: 07-22-2023 End: 07-23-2023 sodium chloride 0.9 % bolus 500 mL Start: 09-11-2019 End: 09-11-2019 sodium chloride (PF) (NS) fl ush 5 mL sucralfate 1000 mg oral tablet (9 sources) Aluminum Complex Start: 09-28-2023 End: 02-12-2024 take 1 tablet by mouth four times daily before mealtime sucralfate (CARAFATE) 1 gram tablet Take 1 (one) tablet (1 g total) by mouth 4 (four) times a day before meals and nightly . 0 09/28/2023 02/12/2024 Discontinued (Discontinued by another clinician) sulfamethoxazole 400 mg / trimethoprim 80 mg oral tablet (13 sources) Dihydrofolate Reductase Inhibitor Antibacterial, Sulfonamide Antimicrobial Start: 09-11-2019 End: 09-25-2019 take 1 tablet by mouth twice daily sulfamethoxazole-t rimethoprim (Bactrim) 400-80 mg per tablet Take 1 (one) tablet by mouth 2 (two) times a day for 14 days . 28 tablet 0 09/11/2019 09/25/2019 tamsulosin hydrochloride 0.4 mg oral capsule (20 sources) alpha-Adrenergic Eneida Start: 10-27-2022 End: 05-03-2024 take 2 capsules by mouth once daily tamsulosin (Flomax) 0.4 mg 24 hr capsule Indications: Benign prostatic hyperplasia, unspecified whether lower urinary tract symptoms present TAKE 2 CAPSULES (0.8 MG) BY MOUTH ONCE DAILY. 180 capsule 3 05/04/2023 09/17/2023 Discontinued (Therapy completed) Start: 10-20-2018 End: 08-29-2023 take 1 capsule by mouth once daily tamsulosin (Flomax) 0.4 mg 24 hr capsule Indications: Benign prostatic hyperplasia, unspecified whether lower urinary tract symptoms present Take 1 capsule (0.4 mg) by mouth once daily. 90 capsule 3 03/13/2023 05/04/2023 Discontinued (Reorder) End: 11-17-2022 take 2 capsules by mouth once daily Tamsulosin HCl - 0.4 MG Oral Capsule TAKE 2 CAPSULE Daily Quantity: 180 Refills: 3 Ordered: 27-Oct-2022 Don Barrera MD technetium (Tc-99m) tetrofosmin (Tc-MYOVIEW) injection 8-25 millicurie (1 source) Start: 03-08-2020 End: 03-08-2020 technetium (Tc-99m) tetrofosmin (Tc-MYOVIEW) injection 8-25 millicurie traMADol hydrochloride 50 mg oral tablet (9 sources) Opioid Agonist Start: 09-11-2019 End: 09-18-2019 traMADol (ULTRAM) 50 mg tablet Indications: Status post total replacement of left hip Take 1 (one) tablet to 2 (two) tablets (50-100 mg total) by mouth every 6 (six) hours as needed 7 days . 30 tablet 0 09/11/2019 09/18/2019 Start: 09-10-2019 End: 09-11-2019 take 50-100 mg by mouth every six hours as needed 50-100 mg, Oral, Every 6 hours PRN, moderate to severe pain, Starting 09/10/19 at 1411 For patient reported pain 4/10 or less, give 1 tablet; 5 and above/10, give 2 tablets tranexamic acid 650 mg oral tablet (1 source) Antifibrinolytic Agent Start: 09-10-2019 End: 09-10-2019 tranexamic acid (LYSTEDA) tablet 1,950 mg Start: 09-10-2019 End: 09-10-2019 tranexamic acid (LYSTEDA) ta blet 1,950 mg 1 ml triamcinolone acetonide 40 mg/ml injection (4 sources) Corticosteroid Start: 05-31-2023 End: 05-31-2023 triamcinolone acetonide (Kenalog-40) injection 40 mg Start: 10-27-2019 End: 10-27-2019 triamcinolone acetonide (CHET ALOG-40) injection 20 mg Start: 10-27-2019 End: 10-27-2019 triamcinolone acetonide (CHET ALOG-40) injection 20 mg Problems Active Problems Problem Classification Problem Date Documented Da te Episodic/Chronic Acute cerebrovascular disease (6 sources) Intracranial hemorrhage; Translations: [Nontraumatic intracranial hemorrhage, unspecified] Onset: 5 05-10-2025 Chronic Anxiety disorders (20 sources) Generalized anxiety disorder; Translations: [Generalized anxiety disorder] Onset: 4 11-05-2023 Chronic Aortic; peripheral; and visceral artery aneurysms (20 sources) Aneurysm; Translations: [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] Onset: 3 05-04-2023 Chronic Cataract (20 sources) Bilateral pseudophakia; Translations: [Presence of intraocular lens] Onset: 5 Resolved: 6 Chronic Coronary atherosclerosis and other heart disease (20 sources) Coronary arteriosclerosis in [place] artery; Translations: [Coronary arteriosclerosis] Onset: 6 06-05-2016 Chronic Deficiency and other anemia (2 sources) Anemia; Translations: [Anemia, unspecified] 11-20-2024 Episodic Disorders of lipid metabolism (20 sources) Mixed hyperlipidemia; Translations: [Hyperlipidemia] Onset: 9 05-19-2019 Chronic E Codes: Fall (5 sources) Unspecified fall, initial encounter; Translations: [Fall] Onset: 5 Episodic Esophageal disorders (20 sources) Gastroesophageal reflux disease; Translations: [Esophageal reflux] Onset: 3 03-13-2023 Chronic Essential hypertension (20 sources) Hypertensive disorder; Translations: [Unspecified essential hypertension] Onset: 3 Chronic Genitourinary symptoms and ill-defined conditions (20 sources) Retention of urine; Translations: [Blood in urine] Onset: 3 03-13-2023 Episodic Headache; including migraine (20 sources) Migraine with aura; Translations: [Migraine with aura, without mention of intractable migraine without mention of status migrainosus] Onset: 3 03-13-2023 Chronic Hyperplasia of prostate (20 sources) Benign prostatic hyperplasia; Translations: [Hyperplasia of prostate] Onset: 3 05-04-2023 Chronic Hypertension with complications and secondary hypertension (6 sources) Benign hypertensive heart disease without congestive heart failure; Translations: [Hypertensive heart disease without heart failure] Onset: 4 07-31-2024 Chronic Immunizations and screening for infectious disease (20 sources) Patient encounter status; Translations: [Other specified vaccination] 11-05-2023 Episodic Inflammation; infection of eye (except that caused by tuberculosis or sexually transmitteddisease) (20 sources) Bilateral punctate keratitis of eyes; Translations: [Punctate keratitis, bilateral] Onset: 9 11-22-2018 Chronic Malaise and fatigue (1 source) Asthenia; Translations: [Weakness] 11-15-2023 Episodic Osteoarthritis (20 sources) Osteoarthritis; Translations: [Osteoarthrosis, unspecified whether generalized or localized, site unspecified] Onset: 8 07-16-2019 Chronic Other aftercare (1 source) MCFP (current) use of aspirin; Translations: [MCFP (current) use of aspirin] Onset: 3 Episodic Other circulatory disease (20 sources) Peripheral arterial occlusive disease; Translations: [Arterial embolism and thrombosis of lower extremity] Onset: 3 05-04-2023 Chronic Other circulatory disease (2 sources) Disorder of arteries and arterioles, unspecified; Translations: [Disorder of arteries and arterioles, unspecified] Onset: 3 Chronic Other circulatory disease (9 sources) H/O: hypertension; Translations: [History of hypertension] Episodic Other circulatory disease (9 sources) H/O: heart disorder; Translations: [History of coronary artery disease] Episodic Other connective tissue disease (20 sources) History of total hip arthroplasty; Translations: [Presence of left artificial hip joint] Onset: 9 09-10-2019 Chronic Other connective tissue disease (2 sources) History of repair of hip joint; Translations: [Presence of left artificial hip joint] Chronic Other connective tissue disease (3 sources) Nontraumatic complete rupture of rotator cuff of left shoulder; Translations: [Nontraumatic complete tear of left rotator cuff] Other ear and sense organ disorders (10 sources) Lesion of external ear; Translations: [Unspecified disorder of external ear] Episodic Other eye disorders (20 sources) Bilateral posterior vitreous detachment; Translations: [Vitreous degeneration, bilateral] Onset: 9 Chronic Other eye disorders (3 sources) Bilateral vitreous floaters; Translations: [Other vitreous opacities, bilateral] Onset: 6 12-30-2015 Chronic Other fractures (1 source) Multiple closed fractures of pelvis with disruption of pelvic [place]; Translations: [Multiple fractures of pelvis with stable disruption of pelvic ring, initial encounter for closed fracture] 05-10-2025 Episodic Other fractures (2 sources) Multiple fractures of pelvis with stable disruption of pelvic ring, initial encounter for closed fracture; Translations: [Multiple fractures of pelvis with stable disruption of pelvic ring, initial encounter for closed fracture (Multi)] Onset: 5 Episodic Other fractures (3 sources) Other specified fracture of right pubis, initial encounter for closed fracture; Translations: [Closed fracture of pubis] Onset: 5 Episodic Other fractures (2 sources) Other specified fracture of left pubis, initial encounter for closed fracture; Translations: [Other specified fracture of left pubis, initial encounter for closed fracture] Onset: 5 Episodic Other gastrointestinal disorders (9 sources) Personal history of other diseases of the digestive system; Translations: [History of gastroesophageal reflux (GERD)] Episodic Other lower respiratory disease (4 sources) Cough; Translations: [Cough] Episodic Other lower respiratory disease (4 sources) Rib pain; Translations: [Pleurodynia] 04-10-2025 Episodic Other lower respiratory disease (2 sources) Pleurodynia; Translations: [Pleurodynia] Onset: 5 Episodic Other male genital disorders (20 sources) Impotence; Translations: [Erectile dysfunction] Chronic Other male genital disorders (20 sources) Male erectile dysfunction, unspecified; Translations: [Erectile dysfunction] Onset: 3 03-13-2023 Chronic Other nervous system disorders (20 sources) Personal history of other diseases of the nervous system and sense organs; Translations: [H/O: cataract] Episodic Other nervous system disorders (15 sources) Taste sense altered; Translations: [Disturbances of sensation of smell and taste] Episodic Other non-traumatic joint disorders (1 source) Chronic pain of right upper limb; Translations: [Pain in right shoulder] 05-31-2023 Episodic Other non-traumatic joint disorders (1 source) Pain in left shoulder; Translations: [Left shoulder pain] Episodic Other non-traumatic joint disorders (2 sources) Pain in right shoulder; Translations: [Right shoulder pain] 03-27-2024 Episodic Other non-traumatic joint disorders (1 source) Arthritis of right hip; Translations: [Arthritis of right hip] Other non-traumatic joint disorders (20 sources) Arthritis of left hip; Translations: [Arthritis of left hip] Onset: 9 07-16-2019 Other non-traumatic joint disorders (3 sources) Rotator cuff arthropathy of left shoulder; Translations: [Rotator cuff arthropathy, left] Other nutritional; endocrine; and metabolic disorders (9 sources) H/O: raised blood lipids; Translations: [History of hyperlipidemia] Episodic Other skin disorders (3 sources) Ingrowing nail; Translations: [Ingrowing nail] 10-12-2023 Episodic Peripheral and visceral atherosclerosis (20 sources) Peripheral vascular disease, unspecified; Translations: [Peripheral vascular disease, unspecified] Onset: 1 Chronic Residual codes; unclassified (20 sources) Obstructive sleep apnea syndrome; Translations: [Obstructive sleep apnea (adult)(pediatric)] Onset: 3 03-13-2023 Chronic Residual codes; unclassified (20 sources) Aura; Translations: [Unspecified visual disturbance] Episodic Retinal detachments; defects; vascular occlusion; and retinopathy (20 sources) Epiretinal membrane of left eye; Translations: [Puckering of macula, left eye] Onset: 3 Chronic Rheumatoid arthritis and related disease (20 sources) Inflammatory polyarthropathy; 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] Onset: 4 11-05-2023 Chronic Skull and face fractures (2 sources) Closed fracture of right orbit; Translations: [Fracture of orbit, unspecified, initial encounter for closed fracture] 05-10-2025 Episodic Spondylosis; intervertebral disc disorders; other back problems (20 sources) Arthritis of spine; Translations: [Lumbar spondylosis] Onset: 3 03-13-2023 Chronic Syncope (3 sources) Syncope and collapse; Translations: [Syncope] Onset: 5 Episodic Transient cerebral ischemia (20 sources) Transient cerebral ischemia; Translations: [Unspecified transient cerebral ischemia] Onset: 3 03-13-2023 Chronic Unclassified (3 sources) History of repair of hip joint; Translations: [Status post left hip replacement] Unclassified (2 sources) Patient encounter status; Translations: [Medicare annual wellness visit, subsequent] 11-20-2024 Unclassified (5 sources) History of reverse prosthetic total arthroplasty of left shoulder; Translations: [Status post reverse arthroplasty of left shoulder] Unclassified (2 sources) COUGHING 09-23-2022 Comment on above: COUGHING Unclassified (1 source) 6 MO FU REV LABS 04-26-2022 Comment on above: 6 MO FU REV LABS Unclassified (1 source) Abdominal aortic aneurysm, without rupture, unspecified; Translations: [Abdominal aortic aneurysm, without rupture, unspecified] Onset: 3 Unclassified (3 sources) Infrarenal abdominal aortic aneurysm, without rupture; Translations: [Infrarenal abdominal aortic aneurysm, without rupture] Onset: 3 Unclassified (2 sources) Cough, unspecified; Translations: [Cough, unspecified] Onset: 2 Unclassified (1 source) Personal history of COVID-19; Translations: [Personal history of COVID-19] Onset: 2 Unclassified (2 sources) Nail Care Onset: 5 Unclassified (2 sources) Abdominal aortic aneurysm, without rupture, unspecified (CMS-HCC); Translations: [Abdominal aortic aneurysm, without rupture, unspecified (CMS-HCC)] Onset: 3 Unclassified (2 sources) Fracture of orbit, unspecified, initial encounter for closed fracture; Translations: [Fracture of orbit, unspecified, initial encounter for closed fracture (Multi)] Onset: 5 Unclassified (1 source) Infrarenal abdominal aortic aneurysm, without rupture (CMS-HCC); Translations: [Infrarenal abdominal aortic aneurysm, without rupture (CMS-HCC)] Onset: 4 Unclassified (2 sources) Fracture of orbital roof, right side, initial encounter for open fracture; Translations: [Fracture of orbital roof, right side, initial encounter for open fracture (Multi)] Onset: 5 Past or Other Problems Problem Classification Problem Date Documented Date Episodic/Chronic Abdominal hernia (20 sources) Hiatal hernia; Translations: [Diaphragmatic hernia without obstruction or gangrene] Onset: 11-15-2023 11-01-2023 Episodic Acute bronchitis (3 sources) Acute bronchitis; Translations: [Acute bronchitis] Onset: 09-23-2022 09-23-2022 Episodic Blindness and vision defects (20 sources) Subjective visual disturbance; Translations: [Unspecified subjective visual disturbances] Onset: 08-06-2019 08-06-2019 Episodic Cardiac dysrhythmias (20 sources) Bradycardia; Translations: [Bradycardia, unspecified] Onset: 05-09-2021 05-09-2021 Episodic Conditions associated with dizziness or vertigo (17 sources) Dizziness and giddiness; Translations: [Dizziness] Onset: 03-10-2023 07-22-2023 Episodic Deficiency and other anemia (2 sources) Anemia, unspecified; Translations: [Anemia, unspecified] Onset: 05-19-2024 Episodic Mycoses (20 sources) Onychomycosis; Translations: [Tinea unguium] Onset: 05-13-2021 Episodic Other aftercare (3 sources) Other chcf (current) drug therapy; Translations: [Other chcf (current) drug therapy] Onset: 03-10-2023 Episodic Other circulatory disease (2 sources) History of cerebrovascular disease; Translations: [Personal history of transient ischemic attack (TIA), and cerebral infarction without residual deficits] Onset: 07-31-2024 07-31-2024 Episodic Other circulatory disease (1 source) Personal history of transient ischemic attack (TIA), and cerebral infarction without residual deficits; Translations: [Personal history of transient ischemic attack (TIA), and cerebral infarction without residual deficits] Onset: 07-31-2024 Episodic Other connective tissue disease (20 sources) Shoulder girdle weakness; Translations: [Other symptoms referable to joint, shoulder region] Onset: 03-13-2023 03-13-2023 Episodic Other eye disorders (1 source) Vitreous opacities; Translations: [Other vitreous opacities, unspecified eye] Onset: 11-18-2014 Resolved: 12-30-2015 12-30-2015 Chronic Other eye disorders (20 sources) Tear film insufficiency; Translations: [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] Onset: 11-18-2014 Resolved: 12-30-2015 12-30-2015 Episodic Other non-traumatic joint disorders (20 sources) Hip pain; Translations: [Pain in joint, pelvic region and thigh] 06-12-2024 Episodic Other non-traumatic joint disorders (20 sources) Shoulder pain; Translations: [Pain in joint, shoulder region] Onset: 03-13-2023 03-13-2023 Episodic Other non-traumatic joint disorders (20 sources) Arthralgia of the pelvic region and thigh; Translations: [Pain in joint, pelvic region and thigh] Onset: 03-13-2023 03-13-2023 Episodic Other non-traumatic joint disorders (2 sources) Pain in left hip; Translations: [Pain in left hip] Onset: 06-12-2024 Episodic Other screening for suspected conditions (not mental disorders or infectious disease) (2 sources) Encounter for screening for malignant neoplasm of prostate; Translations: [Encounter for screening for malignant neoplasm of prostate] Onset: 11-20-2024 Episodic Other skin disorders (20 sources) Multiple actinic keratoses; Translations: [Actinic keratosis] Onset: 03-13-2023 03-13-2023 Episodic Other skin disorders (20 sources) Foot callus; Translations: [Corns and callosities] Onset: 05-03-2023 Resolved: 05-03-2023 Episodic Residual codes; unclassified (20 sources) History of reverse prosthetic total arthroplasty of left shoulder; Translations: [Other postprocedural status] Onset: 03-13-2023 03-13-2023 Episodic Spondylosis; intervertebral disc disorders; other back problems (20 sources) Low back pain; Translations: [Lumbago] Onset: 03-13-2023 03-13-2023 Episodic Unclassified (20 sources) Onset: 05-04-2023 Resolved: 11-20-2024 05-04-2023 Unclassified (1 source) Abdominal aortic aneurysm, without rupture, unspecified; Translations: [Abdominal aortic aneurysm, without rupture, unspecified] Onset: 05-10-2023 Unclassified (1 source) Infrarenal abdominal aortic aneurysm, without rupture; Translations: [Infrarenal abdominal aortic aneurysm, without rupture] Onset: 05-10-2023 Unclassified (2 sources) Abdominal aortic aneurysm, without rupture, unspecified (CMS-HCC); Translations: [Abdominal aortic aneurysm, without rupture, unspecified (CMS-HCC)] Onset: 06-17-2024 Unclassified (1 source) Infrarenal abdominal aortic aneurysm, without rupture (CMS-HCC); Translations: [Infrarenal abdominal aortic aneurysm, without rupture (CMS-HCC)] Onset: 06-17-2024 Viral infection (15 sources) COVID-19; Translations: [COVID-19 virus detected] Onset: 10-11-2021 Episodic NEGATED: Highlighted row has not occurred!Residual codes; unclassified (20 sources) Disease Episodic Results Test Name Value Interpretation Reference Range Facility CBC panel Auto (Bld)on 05-20 Erythrocyte distribution width (RBC) [Ratio] 13.0 % 11.5 - 14.5 % [facility] Hematocrit (Bld) [Volume fraction] 36.6 % Low 41.0 - 52.0 % [facility] Hemoglobin (Bld) [Mass/Vol] 11.5 g/dL Low 13.5 - 17.5 g/dL [facility] Interpretation and review of laboratory results Abnormal [facility] MCH (RBC) [Entitic mass] 33.1 pg 26.0 - 34.0 pg [facility] MCHC (RBC) [Mass/Vol] 31.4 g/dL Low 32.0 - 36.0 g/dL [facility] MCV (RBC) [Entitic vol] 106 fL High 80 - 100 fL [facility] Nucleated RBC/100 WBC (Bld) [Ratio] 0.0 % [facility] Platelets (Bld) [#/Vol] 456 10*3/uL High [facility] RBC (Bld) [#/Vol] 3.47 10*6/uL Low [facility] WBC (Bld) [#/Vol] 13.0 10*3/uL [facility]20[facility]2025 Magnesium [Mass/Vol] 1.92 mg/dL 1.60 - 2.40 mg/dL [facility] Magnesium [Mass/Vol]on 05-20 Interpretation and review of laboratory results Normal [facility] No Panel Informationon 05-20 [facility] Renal function 2000 panelon 05-20-2025 Albumin BCP dye [Mass/Vol] 3.2 g/dL Low 3.4 - 5.0 g/dL [facility] Anion gap [Moles/Vol] 12 mmol/L 10 - 2 0 mmol/L [facility] Calcium [Mass/Vol] 8.8 mg/dL 8.6 - 10. 6 mg/dL [facility] Chloride [Moles/Vol] 104 mmol/L 98 - 10 7 mmol/L [facility] CO2 [Moles/Vol] 28 mmol/L 21 - 32 mmol/L [facility] Creatinine [Mass/Vol] 0.53 mg/dL 0.50 - 1.30 mg/dL [facility] eGFR - PINF [facility] Comment on above: Calculations of leonides mated GFR are performed using the 2020 CKD-EPI Study Refit equation without the race variable for the IDMS-Traceable creatinine methods. https://jasn.asnjournals.org/content//ASN.91980 68749 Glucose [Mass/Vol] 125 mg/dL High 74 - 99 mg/dL [facility] Interpretation and review of laboratory results Abnormal [facility] Phosphate [Mass/Vol] 3.8 mg/dL 2.5 - 4 .9 mg/dL [facility] Potassium [Moles/Vol] 4.0 mmol/L 3.5 - 5.3 mmol/L [facility] Sodium [Moles/Vol] 140 mmol/L 136 - 145 mmol/L [facility] Urea nitrogen [Mass/Vol] 26 mg/dL High 6 - 23 mg/dL [facility] XR ABDOMEN 1 VIEWon 05-19-20 25 XR ABDOMEN 1 VIEW Interpreted By: Oj Regan, STUDY: XR ABDOMEN 1 VIEW; 05/19/2025 11:35 am INDICATION: Signs/Symptoms:eval dobhoff placement. COMPARISON: 05/15/2025. ACCESSION NUMBER(S): [id number] ORDERING CLINICIAN: ELAINE MADRIGAL FINDINGS: Dobbhoff tube overlies the 2nd duodenum. There is contrast in nondistended colonic loops. Limited evaluation of pneumoperitoneum on supine imaging, however no gross evidence of free air is noted. Right midlung atelectasis. Osseous structures demonstrate no acute bony changes. IMPRESSION: 1. Dobbhoff tube overlies the 2nd duodenum. Contrast within nondistended colonic loops. Signed by: Oj Regan 05/19/2025 12:02 PM Dictation workstation: [id number] [facility] XR Abdomen Single viewon 1. Dobbhoff tube overlies the 2nd duodenum. Contrast within nondistended colonic loops. Signed by: Oj Regan 05/19/2025 12:02 PM Dictation workstation: [id number] [facility]ODAL Interpreted By: Oj Regan, STUDY: XR ABDOMEN 1 VIEW; 05/19/2025 11:35 am INDICATION: Signs/Symptoms:eval dobhoff placement. COMPARISON: 05/15/2025. ACCESSION NUMBER(S): [id number] ORDERING CLINICIAN: ELAINE MADRIGAL FINDINGS: Dobbhoff tube overlies the 2nd duodenum. There is contrast in nondistended colonic loops. Limited evaluation of pneumoperitoneum on supine imaging, however no gross evidence of free air is noted. Right midlung atelectasis. Osseous structures demonstrate no acute bony changes. MMODAL Aidee Regan MD - 05/19/2025 Interpreted By: Oj Regan, STUDY: XR ABDOMEN 1 VIEW; 05/19/2025 11:35 am INDICATION: Signs/Symptoms:eval dobhoff placement. COMPARISON: 05/15/2025. ACCESSION NUMBER(S): [id number] ORDERING CLINICIAN: ELAINE MADRIGAL FINDINGS: Dobbhoff tube overlies the 2nd duodenum. There is contrast in nondistended colonic loops. Limited evaluation of pneumoperitoneum on supine imaging, however no gross evidence of free air is noted. Right midlung atelectasis. Osseous structures demonstrate no acute bony changes. IMPRESSION: 1. Dobbhoff tube overlies the 2nd duodenum. Contrast within nondistended colonic loops. Signed by: Oj Regan 05/19/2025 12:02 PM Dictation workstation: [id number] [facility] Work Phone: Radiology Study observation (narrative) [facility] Work Phone: XR Abdomen Single viewOrdere d By: Aidee Regan on 05-19-2025 [facility] Work Phone: RF videography Hypopharynx a nd Esophagus Views for swallowing function W speech and W barium contrast Julito 05-16-2025 Interpreted By: Antonio Mccollum and Nelson Camree STUDY: [place] MODIFIED BARIUM SWALLOW STUDY;; 05/14/2025 1:53 pm INDICATION: Signs/Symptoms:R/o aspiration, oropharyngeal dysphagia. COMPARISON: None. ACCESSION NUMBER(S): [id number] ORDERING CLINICIAN: LAY WALDROP TECHNIQUE: MBSS completed. Informed verbal consent obtained prior to completion of exam. Trials of thin, nectar thick, honey thick, puree, soft-solids, and regular solids given. ELECTRICAL AND INSTRUMENTATION MECHANIC: Shannon Santos Phone/Pager: [phone] SPEECH FINDINGS: Speech-Language Pathology Inpatient Modified Barium Swallow Study Patient Name: Fawn Campos : 1935 Today's Date: 05/14/25 Start Time: 1300 Stop Time: 1335 Time Calculation (min): 35 Modified Barium Swallow Study completed. Informed verbal consent obtained prior to completion of exam. Trials of thin liquids via tsp/straw, mildly (nectar) thick liquids via tsp/straw, moderately (honey) thick liquids via tsp/straw, purees, and regular solids were given. 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 Respiratory Status: Nasal cannula Current diet: NPO w/ no means of nutrition/hydration Pain: Pain Scale: 0-10 Ratin DIET RECOMMENDATIONS: NPO with frequent aggressive oral care. 10 ice chips/hr allowed for pleasure, safe swallow stimulation, and after oral care to prevent buildup of bacteria within the oropharynx Question need for GOC discussions re: assuming the risk of aspiration w/ continued PO intake ELECTRICAL AND INSTRUMENTATION MECHANIC PLAN: Skilled ELECTRICAL AND INSTRUMENTATION MECHANIC Services: Skilled ELECTRICAL AND INSTRUMENTATION MECHANIC intervention for dysphagia is warranted. ELECTRICAL AND INSTRUMENTATION MECHANIC Frequency: pending GOC decisions made Discussed POC: patient Discussed Risks/Benefits: Yes Patient/Caregiver Agreeable: Yes Short term goals established: Pt/caregiver/family will demonstrate adequate return of knowledge re: dysphagia POC/diet recommendations/safe swallowing guidelines w/ 100% acc to effectively assist the patient in immediate safety with oral intake and swallowing. Start Date: 05/14/2025 End Date: 06/14/2025 Status: Progressing Pt will tolerate least restrictive diet with no overt clinical s/s aspiration 100% of the time. Start Date: 05/14/2025 End Date: 06/14/2025 Status: Not Progressing Education Provided: Results and recommendations per MBSS, with video review; recommendations and POC at this time. Verbal understanding and agreement given on all accounts. Treatment Provided Today: ELECTRICAL AND INSTRUMENTATION MECHANIC provided extensive education and training to pt/pt family regarding anatomy/physiology of swallow function, risk factors of aspiration/aspiration pna & how to mitigate factors, diet modifications, and the use of compensatory swallow strategies to promote pt safety upon PO intake. Additional Medical Consults Suggested: GOC Mechanics of the Swallow Summary: ORAL PHASE: Lip Closure - Intact Tongue Control During Bolus Hold - Intact Bolus prep/mastication - Impaired Bolus transport/lingual motion - Impaired Oral residue - present PHARYNGEAL PHASE: Initiation of pharyngeal swallow - Impaired Soft palate elevation - Intact Laryngeal elevation - Intact Anterior hyoid excursion - Impaired Epiglottic movement - Impaired Laryngeal vestibule closure - Impaired Pharyngeal stripping wave - Intact Pharyngeal contraction (A/P view) - Not tested Pharyngoesophageal segment opening - Impaired Tongue base retraction - Impaired Pharyngeal residue - present ESOPHAGEAL PHASE: Esophageal clearance - Intact *Of note: The A-P bolus follow-through is not intended to be utilized as a diagnostic assessment of the esophagus, rather a tool to observe the biomechanical aspects of the swallow continuum and to inform the need for further evaluation by medical specialists, as applicable. ELECTRICAL AND INSTRUMENTATION MECHANIC Impressions with Severity Rating: Pt awake/alert, consistently cooperative/able to follow commands, and responded appropriately to conversation/question s by ELECTRICAL AND INSTRUMENTATION MECHANIC. Missing dentition noted. Severe oropharyngeal dysphagia. Prolonged mastication of small bites regular solids 2/2 missing dentition. Lingual pumping and piecemeal swallow w/ all consistencies. 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 Impairments most impacting swallow function include delayed pharyngeal swallow initiation, incomplete epiglottic inversion/laryngeal vestibular closure (2/2 ? cervical lordosis), and reduced pharyngeal constriction/UES opening (2/2 ? cervical lordosis). Reduced pharyngeal squeeze/UES opening resulted in significant amount residue remaining in valleculae/pyriforms w/ (more content not included)... [facility] Antonio Bullock MD - 05/16/2025 Interpreted By: Antonio Bullock and Nelson Camree STUDY: [place] MODIFIED BARIUM SWALLOW STUDY;; 05/14/2025 1:53 pm INDICATION: Signs/Symptoms:R/o aspiration, oropharyngeal dysphagia. COMPARISON: None. ACCESSION NUMBER(S): [id number] ORDERING CLINICIAN: LAY WALDROP TECHNIQUE: MBSS completed. Informed verbal consent obtained prior to completion of exam. Trials of thin, nectar thick, honey thick, puree, soft-solids, and regular solids given. ELECTRICAL AND INSTRUMENTATION MECHANIC: Shannon Santos Phone/Pager: [phone] SPEECH FINDINGS: Speech-Language Pathology Inpatient Modified Barium Swallow Study Patient Name: Fawn Campos : 1935 Today's Date: 05/14/25 Start Time: 1300 Stop Time: 1335 Time Calculation (min): 35 Modified Barium Swallow Study completed. Informed verbal consent obtained prior to completion of exam. Trials of thin liquids via tsp/straw, mildly (nectar) thick liquids via tsp/straw, moderately (honey) thick liquids via tsp/straw, purees, and regular solids were given. 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 Respiratory Status: Nasal cannula Current diet: NPO w/ no means of nutrition/hydration Pain: Pain Scale: 0-10 Ratin DIET RECOMMENDATIONS: NPO with frequent aggressive oral care. 10 ice chips/hr allowed for pleasure, safe swallow stimulation, and after oral care to prevent buildup of bacteria within the oropharynx Question need for GOC discussions re: assuming the risk of aspiration w/ continued PO intake ELECTRICAL AND INSTRUMENTATION MECHANIC PLAN: Skilled ELECTRICAL AND INSTRUMENTATION MECHANIC Services: Skilled ELECTRICAL AND INSTRUMENTATION MECHANIC intervention for dysphagia is warranted. ELECTRICAL AND INSTRUMENTATION MECHANIC Frequency: pending GOC decisions made Discussed POC: patient Discussed Risks/Benefits: Yes Patient/Caregiver Agreeable: Yes Short term goals established: Pt/caregiver/family will demonstrate adequate return of knowledge re: dysphagia POC/diet recommendations/safe swallowing guidelines w/ 100% acc to effectively assist the patient in immediate safety with oral intake and swallowing. Start Date: 05/14/2025 End Date: 06/14/2025 Status: Progressing Pt will tolerate least restrictive diet with no overt clinical s/s aspiration 100% of the time. Start Date: 05/14/2025 End Date: 06/14/2025 Status: Not Progressing Education Provided: Results and recommendations per MBSS, with video review; recommendations and POC at this time. Verbal understanding and agreement given on all accounts. Treatment Provided Today: ELECTRICAL AND INSTRUMENTATION MECHANIC provided extensive education and training to pt/pt family regarding anatomy/physiology of swallow function, risk factors of aspiration/aspiration pna & how to mitigate factors, diet modifications, and the use of compensatory swallow strategies to promote pt safety upon PO intake. Additional Medical Consults Suggested: GOC Mechanics of the Swallow Summary: ORAL PHASE: Lip Closure - Intact Tongue Control During Bolus Hold - Intact Bolus prep/mastication - Impaired Bolus transport/lingual motion - Impaired Oral residue - present PHARYNGEAL PHASE: Initiation of pharyngeal swallow - Impaired Soft palate elevation - Intact Laryngeal elevation - Intact Anterior hyoid excursion - Impaired Epiglottic movement - Impaired Laryngeal vestibule closure - Impaired Pharyngeal stripping wave - Intact Pharyngeal contraction (A/P view) - Not tested Pharyngoesophageal segment opening - Impaired Tongue base retraction - Impaired Pharyngeal residue - present ESOPHAGEAL PHASE: Esophageal clearance - Intact *Of note: The A-P bolus follow-through is not intended to be utilized as a diagnostic assessment of the esophagus, rather a tool to observe the biomechanical aspects of the swallow continuum and to inform the need for further evaluation by medical specialists, as applicable. ELECTRICAL AND INSTRUMENTATION MECHANIC Impressions with Severity Rating: Pt awake/alert, consistently cooperative/able to follow commands, and responded appropriately to conversation/question s by ELECTRICAL AND INSTRUMENTATION MECHANIC. Missing dentition noted. Severe oropharyngeal dysphagia. Prolonged mastication of small bites regular solids 2/2 missing dentition. Lingual pumping and piecemeal swallow w/ all consistencies. 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 Impairments most impacting swallow function include delayed pharyngeal swallow initiation, incomplete epiglottic inversion/laryngeal vestibular closure (2/2 ? cervical lordosis), and reduced pharyngeal constriction/UES opening (2/2 ? cervical lordosis). Reduced pharyngeal squeeze/UES opening resulted in significant mike (more content not included)... [facility] Work Phone: RF videography Hypopharynx a nd Esophagus Views for swallowing function W speech and W barium contrast POOrdered By: Antonio Lane on 05-16-2025 [facility] Work Phone: XR Abdomen Single viewon 1. Dobbhoff tube wit h the tip projecting over the expected position of the proximal duodenum. 2. Nonobstructive bowel-gas pattern. 3. Linear opacity in the right mid/lower lung zone, likely atelectatic change. I personally reviewed the images/study and I agree with the findings as stated by resident Freedom Luna. This study was interpreted at [place], [place]. MACRO: None Signed by: Michelle Blackwell 05/16/2025 6:04 AM Dictation workstation: [id number] [id number] MMODAL Interpreted By: Michelle Hodges and Ritchie Brandon STUDY: XR ABDOMEN 1 VIEW; 05/15/2025 5:16 pm INDICATION: Signs/Symptoms:Confir m DHT placement. COMPARISON: CT chest abdomen pelvis 05/10/2025. ACCESSION NUMBER(S): [id number] ORDERING CLINICIAN: LAY WALDROP FINDINGS: Dobbhoff tube courses midline below the level of the diaphragm with the tip projecting over the expected position of the proximal duodenum. Nonobstructive bowel gas pattern. There is positive contrast in the right hemiabdomen, likely within the ascending colon. Limited evaluation of pneumoperitoneum on supine imaging, however no gross evidence of free air is noted. Linear opacity in the right mid lung zone likely atelectasis. Otherwise the lung bases appear clear without pleural effusions. Osseous structures demonstrate no acute bony changes. MMODAL Michelle Hodges MD - 05/16/2025 Interpreted By: Michelle Hodges and Ritchie Brandon STUDY: XR ABDOMEN 1 VIEW; 05/15/2025 5:16 pm INDICATION: Signs/Symptoms:Confir m DHT placement. COMPARISON: CT chest abdomen pelvis 05/10/2025. ACCESSION NUMBER(S): [id number] ORDERING CLINICIAN: LAY WALDROP FINDINGS: Dobbhoff tube courses midline below the level of the diaphragm with the tip projecting over the expected position of the proximal duodenum. Nonobstructive bowel gas pattern. There is positive contrast in the right hemiabdomen, likely within the ascending colon. Limited evaluation of pneumoperitoneum on supine imaging, however no gross evidence of free air is noted. Linear opacity in the right mid lung zone likely atelectasis. Otherwise the lung bases appear clear without pleural effusions. Osseous structures demonstrate no acute bony changes. IMPRESSION: 1. Dobbhoff tube with the tip projecting over the expected position of the proximal duodenum. 2. Nonobstructive bowel-gas pattern. 3. Linear opacity in the right mid/lower lung zone, likely atelectatic change. I personally reviewed the images/study and I agree with the findings as stated by resident Freedom Luna. This study was interpreted at [place], [place]. MACRO: None Signed by: Michelle Blackwell 05/16/2025 6:04 AM Dictation workstation: [id number] [facility] Work Phone: XR Abdomen Single viewOrdere d By: Michelle Blackwell on 05-16-2025 [facility] Work Phone: Glucose Test strip manual (B ld) [Mass/Vol]on 05-15-2025 Glucose [Mass/Vol] 127 mg/dL High 74 - 99 mg/dL [facility] Interpretation and review of laboratory results Abnormal [facility] Glucose [Mass/Vol] 127 mg/dL High 74-99 [facility] Comment on above: Performed By: #### 5 7021-8 #### GAGNON IRENA ([id number]) [facility] [address] [place] [address] XR ABDOMEN 1 VIEWon 05-15-20 XR ABDOMEN 1 VIEW Interpreted By: Michelle Hodges and Jeremy Loja STUDY: XR ABDOMEN 1 VIEW; 05/15/2025 5:16 pm INDICATION: Signs/Symptoms:Confir m DHT placement. COMPARISON: CT chest abdomen pelvis 05/10/2025. ACCESSION NUMBER(S): [id number] ORDERING CLINICIAN: LAY WALDROP FINDINGS: Dobbhoff tube courses midline below the level of the diaphragm with the tip projecting over the expected position of the proximal duodenum. Nonobstructive bowel gas pattern. There is positive contrast in the right hemiabdomen, likely within the ascending colon. Limited evaluation of pneumoperitoneum on supine imaging, however no gross evidence of free air is noted. Linear opacity in the right mid lung zone likely atelectasis. Otherwise the lung bases appear clear without pleural effusions. Osseous structures demonstrate no acute bony changes. IMPRESSION: 1. Dobbhoff tube with the tip projecting over the expected position of the proximal duodenum. 2. Nonobstructive bowel-gas pattern. 3. Linear opacity in the right mid/lower lung zone, likely atelectatic change. I personally reviewed the images/study and I agree with the findings as stated by resident Freedom Luna. This study was interpreted at [place], [place]. MACRO: None Signed by: Michelle Blackwell 05/16/2025 6:04 AM Dictation workstation: [id number] Normal [facility] Comment on above: Order Comment: RN to release order via task on Brain when patient is ready for x-ray confirmation of feeding tube placement. XR Abdomen Single viewon Radiology Study observation (narrative) [facility] Work Phone: CBC panel Auto (Bld)on 05-14 Erythrocyte distribution width (RBC) [Ratio] 12.4 % 11.5 - 14.5 % [facility] Hematocrit (Bld) [Volume fraction] 35.5 % Low 41.0 - 52.0 % [facility] Hemoglobin (Bld) [Mass/Vol] 11.3 g/dL Low 13.5 - 17.5 g/dL [facility] Interpretation and review of laboratory results Abnormal [facility] MCH (RBC) [Entitic mass] 33.6 pg 26.0 - 34.0 pg [facility] MCHC (RBC) [Mass/Vol] 31.8 g/dL Low 32.0 - 36.0 g/dL [facility] MCV (RBC) [Entitic vol] 106 fL High 80 - 100 fL [facility] Nucleated RBC/100 WBC (Bld) [Ratio] 0.0 % [facility] Platelets (Bld) [#/Vol] 175 10*3/uL [facility] RBC (Bld) [#/Vol] 3.36 10*6/uL Low [facility] WBC (Bld) [#/Vol] 10.0 10*3/uL [facility] Erythrocyte distribution width (RBC) [Ratio] 12.4 % Normal 11.5-14.5 [facility] Comment on above: Performed By: #### 5 7021-8 #### KALIN OSBORN ([id number]) [facility] [address] [place] [address] Hematocrit (Bld) [Volume fraction] 35.5 % Low 41.0-52.0 [facility] Comment on above: Performed By: #### 5 7021-8 #### KALIN OSBORN ([id number]) [facility]) [address] [place] [address] Hemoglobin (Bld) [Mass/Vol] 11.3 g/dL Low 13.5-17.5 [facility] Comment on above: Performed By: #### 5 7021-8 #### KALIN OSBORN ([id number]) [facility] [address] [place] [address] MCH (RBC) [Entitic mass] 33.6 pg Normal 26.0-34.0 [facility] Comment on above: Performed By: #### 5 7021-8 #### KALIN OSBORN ([id number]) [facility]) [address] [place] [address] MCHC (RBC) [Mass/Vol] 31.8 g/dL Low 32.0-36.0 [facility] Comment on above: Performed By: #### 5 7021-8 #### KALIN OSBORN ([id number]) [facility]) [address] [place] [address] MCV (RBC) [Entitic vol] 106 fL High 80-100 [facility] Comment on above: Performed By: #### 5 7021-8 #### KALIN OSBORN ([id number]) [facility] [address] [place] [address] Nucleated RBC/100 WBC (Bld) [Ratio] 0.0 /100 WBCs Normal 0.0-0.0 [facility] Comment on above: Performed By: #### 5 7021-8 #### KALIN OSBORN ([id number]) [facility] [address] [place] [address] Platelets (Bld) [#/Vol] 175 x10*3/uL Normal 150-450 [facility] Comment on above: Performed By: #### 5 7021-8 #### KALIN OSBORN ([id number]) [facility]) [address] [place] [address] RBC (Bld) [#/Vol] 3.36 x10*6/uL Low 4.50-5.90 [facility] Comment on above: Performed By: #### 5 7021-8 #### KALIN OSBORN ([id number]) [facility]) [address] [place] [address] WBC (Bld) [#/Vol] 10.0 x10*3/uL Normal 4.4-11.3 [facility] Comment on above: Performed By: #### 5 7021-8 #### GAGNON IRENA ([id number]) [facility]) [address] [place] [address] FL MODIFIED BARIUM SWALLOW S Elyssa 05-14-2025 FL MODIFIED BARIUM SWALLOW STUDY Interpreted By: Antonio Bullock and Nelson Camree STUDY: [place] MODIFIED BARIUM SWALLOW STUDY;; 05/14/2025 1:53 pm INDICATION: Signs/Symptoms:R/o aspiration, oropharyngeal dysphagia. COMPARISON: None. ACCESSION NUMBER(S): [id number] ORDERING CLINICIAN: LAY WALDROP TECHNIQUE: MBSS completed. Informed verbal consent obtained prior to completion of exam. Trials of thin, nectar thick, honey thick, puree, soft-solids, and regular solids given. ELECTRICAL AND INSTRUMENTATION MECHANIC: Shannon Santos Phone/Pager: [phone] SPEECH FINDINGS: Speech-Language Pathology Inpatient Modified Barium Swallow Study Patient Name: Fawn Campos : 1935 Today's Date: 05/14/25 Start Time: 1300 Stop Time: 1335 Time Calculation (min): 35 Modified Barium Swallow Study completed. Informed verbal consent obtained prior to completion of exam. Trials of thin liquids via tsp/straw, mildly (nectar) thick liquids via tsp/straw, moderately (honey) thick liquids via tsp/straw, purees, and regular solids were given. 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 Respiratory Status: Nasal cannula Current diet: NPO w/ no means of nutrition/hydration Pain: Pain Scale: 0-10 Ratin DIET RECOMMENDATIONS: NPO with frequent aggressive oral care. 10 ice chips/hr allowed for pleasure, safe swallow stimulation, and after oral care to prevent buildup of bacteria within the oropharynx Question need for GOC discussions re: assuming the risk of aspiration w/ continued PO intake ELECTRICAL AND INSTRUMENTATION MECHANIC PLAN: Skilled ELECTRICAL AND INSTRUMENTATION MECHANIC Services: Skilled ELECTRICAL AND INSTRUMENTATION MECHANIC intervention for dysphagia is warranted. ELECTRICAL AND INSTRUMENTATION MECHANIC Frequency: pending GOC decisions made Discussed POC: patient Discussed Risks/Benefits: Yes Patient/Caregiver Agreeable: Yes Short term goals established: Pt/caregiver/family will demonstrate adequate return of knowledge re: dysphagia POC/diet recommendations/safe swallowing guidelines w/ 100% acc to effectively assist the patient in immediate safety with oral intake and swallowing. Start Date: 05/14/2025 End Date: 06/14/2025 Status: Progressing Pt will tolerate least restrictive diet with no overt clinical s/s aspiration 100% of the time. Start Date: 05/14/2025 End Date: 06/14/2025 Status: Not Progressing Education Provided: Results and recommendations per MBSS, with video review; recommendations and POC at this time. Verbal understanding and agreement given on all accounts. Treatment Provided Today: ELECTRICAL AND INSTRUMENTATION MECHANIC provided extensive education and training to pt/pt family regarding anatomy/physiology of swallow function, risk factors of aspiration/aspiration pna & how to mitigate factors, diet modifications, and the use of compensatory swallow strategies to promote pt safety upon PO intake. Additional Medical Consults Suggested: GOC Mechanics of the Swallow Summary: ORAL PHASE: Lip Closure - Intact Tongue Control During Bolus Hold - Intact Bolus prep/mastication - Impaired Bolus transport/lingual motion - Impaired Oral residue - present PHARYNGEAL PHASE: Initiation of pharyngeal swallow - Impaired Soft palate elevation - Intact Laryngeal elevation - Intact Anterior hyoid excursion - Impaired Epiglottic movement - Impaired Laryngeal vestibule closure - Impaired Pharyngeal stripping wave - Intact Pharyngeal contraction (A/P view) - Not tested Pharyngoesophageal segment opening - Impaired Tongue base retraction - Impaired Pharyngeal residue - present ESOPHAGEAL PHASE: Esophageal clearance - Intact *Of note: The A-P bolus follow-through is not intended to be utilized as a diagnostic assessment of the esophagus, rather a tool to observe the biomechanical aspects of the swallow continuum and to inform the need for further evaluation by medical specialists, as applicable. ELECTRICAL AND INSTRUMENTATION MECHANIC Impressions with Severity Rating: Pt awake/alert, consistently cooperative/able to follow commands, and responded appropriately to conversation/question s by ELECTRICAL AND INSTRUMENTATION MECHANIC. Missing dentition noted. Severe oropharyngeal dysphagia. Prolonged mastication of small bites regular solids 2/2 missing dentition. Lingual pumping and piecemeal swallow w/ all consistencies. 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 Impairments most impacting swallow function include delayed pharyngeal swallow initiation, incomplete epiglottic inversion/laryngeal vestibular closure (2/2 ? cervical lordosis), and reduced pharyngeal constriction/UES opening (2/2 ? cervical lordosis). Reduced pharyngeal squeeze/UES opening resulted in significant amount residue remaining in valleculae/pyriforms w/ all consistencies; pt independently swallowed >4x per bolu (more content not included)... Normal [facility] RF videography Hypopharynx a nd Esophagus Views for swallowing function W speech and W barium contrast Julito 05-14-2025 Radiology Study observation (narrative) [facility] Work Phone: ELECTRICAL AND INSTRUMENTATION MECHANIC Modified Barium Swallow Evaluationon 05-14-2025 FLAVIA Humphrey 05/14/2025 2:48 PM Speech-Language Pathology Inpatient Modified Barium Swallow Study Patient Name: Fawn Campos : 1935 Today's Date: 05/14/25 Start Time: 1300 Stop Time: 1335 Time Calculation (min): 35 Modified Barium Swallow Study completed. Informed verbal consent obtained prior to completion of exam. Trials of thin liquids via tsp/straw, mildly (nectar) thick liquids via tsp/straw, moderately (honey) thick liquids via tsp/straw, purees, and regular solids were given. 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 Respiratory Status: Nasal cannula Current diet: NPO w/ no means of nutrition/hydration Pain: Pain Scale: 0-10 Ratin DIET RECOMMENDATIONS: NPO with frequent aggressive oral care. 10 ice chips/hr allowed for pleasure, safe swallow stimulation, and after oral care to prevent buildup of bacteria within the oropharynx Question need for GOC discussions re: assuming the risk of aspiration w/ continued PO intake ELECTRICAL AND INSTRUMENTATION MECHANIC PLAN: Skilled ELECTRICAL AND INSTRUMENTATION MECHANIC Services: Skilled ELECTRICAL AND INSTRUMENTATION MECHANIC intervention for dysphagia is warranted. ELECTRICAL AND INSTRUMENTATION MECHANIC Frequency: pending GOC decisions made Discussed POC: patient Discussed Risks/Benefits: Yes Patient/Caregiver Agreeable: Yes Short term goals established: Pt/caregiver/family will demonstrate adequate return of knowledge re: dysphagia POC/diet recommendations/safe swallowing guidelines w/ 100% acc to effectively assist the patient in immediate safety with oral intake and swallowing. Start Date: 05/14/2025 End Date: 06/14/2025 Status: Progressing Pt will tolerate least restrictive diet with no overt clinical s/s aspiration 100% of the time. Start Date: 05/14/2025 End Date: 06/14/2025 Status: Not Progressing Education Provided: Results and recommendations per MBSS, with video review; recommendations and POC at this time. Verbal understanding and agreement given on all accounts. Treatment Provided Today: ELECTRICAL AND INSTRUMENTATION MECHANIC provided extensive education and training to pt/pt family regarding anatomy/physiology of swallow function, risk factors of aspiration/aspiration pna & how to mitigate factors, diet modifications, and the use of compensatory swallow strategies to promote pt safety upon PO intake. Additional Medical Consults Suggested: GOC Mechanics of the Swallow Summary: ORAL PHASE: Lip Closure - Intact Tongue Control During Bolus Hold - Intact Bolus prep/mastication - Impaired Bolus transport/lingual motion - Impaired Oral residue - present PHARYNGEAL PHASE: Initiation of pharyngeal swallow - Impaired Soft palate elevation - Intact Laryngeal elevation - Intact Anterior hyoid excursion - Impaired Epiglottic movement - Impaired Laryngeal vestibule closure - Impaired Pharyngeal stripping wave - Intact Pharyngeal contraction (A/P view) - Not tested Pharyngoesophageal segment opening - Impaired Tongue base retraction - Impaired Pharyngeal residue - present ESOPHAGEAL PHASE: Esophageal clearance - Intact *Of note: The A-P bolus follow-through is not intended to be utilized as a diagnostic assessment of the esophagus, rather a tool to observe the biomechanical aspects of the swallow continuum and to inform the need for further evaluation by medical specialists, as applicable. ELECTRICAL AND INSTRUMENTATION MECHANIC Impressions with Severity Rating: Pt awake/alert, consistently cooperative/able to follow commands, and responded appropriately to conversation/question s by ELECTRICAL AND INSTRUMENTATION MECHANIC. Missing dentition noted. Severe oropharyngeal dysphagia. Prolonged mastication of small bites regular solids 2/2 missing dentition. Lingual pumping and piecemeal swallow w/ all consistencies. 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 Impairments most impacting swallow function include delayed pharyngeal swallow initiation, incomplete epiglottic inversion/laryngeal vestibular closure (2/2 ? cervical lordosis), and reduced pharyngeal constriction/UES opening (2/2 ? cervical lordosis). Reduced pharyngeal squeeze/UES opening resulted in significant amount residue remaining in valleculae/pyriforms w/ all consistencies; pt independently swallowed >4x per bolus in effort to achieve oral clearance w/ inconsistent success. With subsequent swallows, incomplete epiglottic inversion/laryngeal vestibular closure resulted in SILENT aspiration of pharyngeal residue w/ ALL liquid consistencies after the swallow. Pt did not sense aspiration and made no independent effort to clear; cued coughs largely unsuccessful in clearing material from airway. Trialed chin tuck w/ mildly (nectar) thick liquids w/ initial success in airway closure; however, eventual (more content not included)... [facility] Work Phone: CBC panel Auto (Bld)on 05-13 Erythrocyte distribution width (RBC) [Ratio] 12.4 % 11.5 - 14.5 % [facility] Hematocrit (Bld) [Volume fraction] 35.0 % Low 41.0 - 52.0 % [facility] Hemoglobin (Bld) [Mass/Vol] 10.8 g/dL Low 13.5 - 17.5 g/dL [facility] Interpretation and review of laboratory results Abnormal [facility] MCH (RBC) [Entitic mass] 33.1 pg 26.0 - 34.0 pg [facility] MCHC (RBC) [Mass/Vol] 30.9 g/dL Low 32.0 - 36.0 g/dL [facility] MCV (RBC) [Entitic vol] 107 fL High 80 - 100 fL [facility] Nucleated RBC/100 WBC (Bld) [Ratio] 0.0 % [facility] Platelets (Bld) [#/Vol] 151 10*3/uL [facility] RBC (Bld) [#/Vol] 3.26 10*6/uL Low [facility] WBC (Bld) [#/Vol] 12.4 10*3/uL High [facility] Erythrocyte distribution width (RBC) [Ratio] 12.4 % Normal 11.5-14.5 [facility] Comment on above: Performed By: #### 5 7021-8 #### GAGNON IRENA ([id number]) [facility]) [address] [place] [address] Hematocrit (Bld) [Volume fraction] 35.0 % Low 41.0-52.0 [facility] Comment on above: Performed By: #### 5 7021-8 #### KALIN OSBORN ([id number]) [facility]) [address] [place] [address] Hemoglobin (Bld) [Mass/Vol] 10.8 g/dL Low 13.5-17.5 [facility] Comment on above: Performed By: #### 5 7021-8 #### KALIN OSBORN ([id number]) [facility]) [address] [place] [address] MCH (RBC) [Entitic mass] 33.1 pg Normal 26.0-34.0 [facility] Comment on above: Performed By: #### 5 7021-8 #### KALIN OSBORN ([id number]) [facility]) [address] [place] [address] MCHC (RBC) [Mass/Vol] 30.9 g/dL Low 32.0-36.0 [facility] Comment on above: Performed By: #### 5 7021-8 #### KALIN OSBORN ([id number]) [facility] [address] [place] [address] MCV (RBC) [Entitic vol] 107 fL High 80-100 [facility] Comment on above: Performed By: #### 5 7021-8 #### KALIN OSBORN ([id number]) [facility]) [address] [place] [address] Nucleated RBC/100 WBC (Bld) [Ratio] 0.0 /100 WBCs Normal 0.0-0.0 [facility] Comment on above: Performed By: #### 5 7021-8 #### KALIN OSBORN ([id number]) [facility] [address] [place] [address] Platelets (Bld) [#/Vol] 151 x10*3/uL Normal 150-450 [facility] Comment on above: Performed By: #### 5 7021-8 #### KALIN OSBORN ([id number]) [facility] [address] [place] [address] RBC (Bld) [#/Vol] 3.26 x10*6/uL Low 4.50-5.90 [facility] Comment on above: Performed By: #### 5 7021-8 #### KALIN OSBORN ([id number]) [facility]) [address] [place] [address] WBC (Bld) [#/Vol] 12.4 x10*3/uL High 4.4-11.3 [facility] Comment on above: Performed By: #### 5 7021-8 #### KALIN OSBORN ([id number]) [facility]) [address] [place] [address] Magnesiumon 05-13-2025 Magnesium [Mass/Vol] 2.35 mg/dL 1.60 - 2.40 mg/dL [facility] Magnesium [Mass/Vol] 2.35 mg/dL Normal 1.60-2.40 [facility] Comment on above: Performed By: #### 5 7021-8 #### KALIN OSBORN ([id number]) [facility] [address] [place] [address] Magnesium [Mass/Vol]on 05-13 Interpretation and review of laboratory results Normal [facility] No Panel Informationon 05-13 [facility] Renal function 2000 panelon 05-13-2025 Albumin BCP dye [Mass/Vol] 3.2 g/dL Low 3.4 - 5.0 g/dL [facility] Anion gap [Moles/Vol] 13 mmol/L 10 - 2 0 mmol/L [facility] Calcium [Mass/Vol] 8.0 mg/dL Low 8.6 - 10. 6 mg/dL [facility] Chloride [Moles/Vol] 107 mmol/L 98 - 10 7 mmol/L [facility] CO2 [Moles/Vol] 24 mmol/L 21 - 32 mmol/L [facility] Creatinine [Mass/Vol] 0.62 mg/dL 0.50 - 1.30 mg/dL [facility] eGFR - PINF [facility] Comment on above: Calculations of leonides mated GFR are performed using the 2020 CKD-EPI Study Refit equation without the race variable for the IDMS-Traceable creatinine methods. https://jasn.asnjournals.org/content//ASN.93398 99050 Glucose [Mass/Vol] 90 mg/dL 74 - 99 mg/dL [facility] Interpretation and review of laboratory results Abnormal [facility] Phosphate [Mass/Vol] 3.0 mg/dL 2.5 - 4 .9 mg/dL [facility] Potassium [Moles/Vol] 4.2 mmol/L 3.5 - 5.3 mmol/L [facility] Sodium [Moles/Vol] 140 mmol/L 136 - 145 mmol/L [facility] Urea nitrogen [Mass/Vol] 22 mg/dL 6 - 23 mg/dL [facility] Albumin BCP dye [Mass/Vol] 3.2 g/dL Low 3.4-5.0 [facility] Comment on above: Performed By: #### 5 7021-8 #### KALIN OSBORN ([id number]) [facility] [address] [place] [address] Anion gap [Moles/Vol] 13 mmol/L Normal 10-20 [facility] Comment on above: Performed By: #### 5 7021-8 #### KALIN OSBORN ([id number]) [facility]) [facility] [place] [address] Calcium [Mass/Vol] 8.0 mg/dL Low 8.6-10.6 [facility] Comment on above: Performed By: #### 5 7021-8 #### KALIN OSBORN ([id number]) [facility]) [address] [place] [address] Chloride [Moles/Vol] 107 mmol/L Normal 98-107 [facility] Comment on above: Performed By: #### 5 7021-8 #### KALIN OSBORN ([id number]) [facility]) [address] [place] [address] CO2 [Moles/Vol] 24 mmol/L Normal 21-32 [facility] Comment on above: Performed By: #### 5 7021-8 #### KALIN OSBORN ([id number]) [facility]) [address] [place] [address] Creatinine [Mass/Vol] 0.62 mg/dL Normal 0.50-1.30 [facility] Comment on above: Performed By: #### 5 7021-8 #### KALIN OSBORN ([id number]) [facility]) [address] [place] [address] Glomerular filtration rate >90 Normal >60 [facility] Comment on above: Result Comment: Calc ulations of estimated GFR are performed using the 2020 CKD-EPI Study Refit equation without the race variable for the IDMS-Traceable creatinine methods. https://jasn.asnjournals.org/content/early/ASN.86539 79911 Performed By: #### 5 7021-8 #### KALIN OSBORN ([id number]) [facility]) [address] [place] [address] Glucose [Mass/Vol] 90 mg/dL Normal 74-99 [facility] Comment on above: Performed By: #### 5 7021-8 #### KALIN OSBORN ([id number]) [facility]) [address] [place] [address] Phosphate [Mass/Vol] 3.0 mg/dL Normal 2.5-4.9 [facility] Comment on above: Performed By: #### 5 7021-8 #### KALIN OSBORN ([id number]) [facility]) [facility] [place] [address] Potassium [Moles/Vol] 4.2 mmol/L Normal 3.5-5.3 [facility] Comment on above: Performed By: #### 5 7021-8 #### KALIN OSBORN ([id number]) [facility]) [address] [place] [address] Sodium [Moles/Vol] 140 mmol/L Normal 136-145 [facility] Comment on above: Performed By: #### 5 7021-8 #### KALIN IRENA ([id number]) [facility]) [facility] [place] [address] Urea nitrogen [Mass/Vol] 22 mg/dL Normal 6-23 [facility] Comment on above: Performed By: #### 5 7021-8 #### GAGNON IRENA ([id number]) [facility]) [address] [place] [address] TRANSTHORACIC ECHO (TTE) COM PLETEon 05-13-2025 TRANSTHORACIC ECHO (TTE) [facility], [address] [place] [address] and TRANSTHORACIC ECHOCARDIOGRAM REPORT Patient Name: FAWN CAMERON Reading Physician: [id number] Noelle Roberts MD Study Date: 05/13/2025 Ordering Provider: [id number] LAY WALDROP MRN/PID: [id number] Fellow: Nurse: Date of /Age: 5 1935 City Auditor: Enmanuel sarmiento RD, RVT Gender assigned at M Additional Staff: : Height: 167.64 cm Admit Date: 05/10/2025 Weight: 66.23 kg Admission Status: Inpatient - STAT BSA / BMI: 1.75 m2 / 23.57 kg/m2 Blood Pressure: 120/77 mmHg Department Location: [place] [address] Study Type: TRANSTHORACIC ECHO (TTE) COMPLETE Diagnosis/ICD: Syncope-R55 Indication: syncopal work-up CPT Code: Echo Complete w Full Doppler-93061 Patient History: Pertinent History: HTN, HLD, TIA, bradycardia. Study Detail: The following Echo studies were performed: 2D, M-Mode, Doppler and color flow. PHYSICIAN INTERPRETATION: Left Ventricle: Left ventricular ejection fraction is normal by visual estimate at 60-65%. There are no regional left ventricular wall motion abnormalities. The left ventricular cavity size is normal. There is normal septal and normal posterior left ventricular wall thickness. Spectral Doppler shows a Grade I (impaired relaxation pattern) of left ventricular diastolic filling with normal left atrial filling pressure. Left Atrium: The left atrial size is normal. There is a mobile interatrial septum. Right Ventricle: The right ventricle was not well visualized. Unable to determine right ventricular systolic function. Right Atrium: The right atrial size was not well visualized. Aortic Valve: The aortic valve is trileaflet. The aortic valve area by VTI is 1.69 cm??? with a peak velocity of 1.92 m/s. The peak and mean gradients are 15 mmHg and 8 mmHg, respectively with a dimensionless index of 0.54. There is mild aortic valve cusp calcification. There is mild aortic valve regurgitation. Mitral Valve: The mitral valve is normal in structure. There is trace mitral valve regurgitation. The E Vmax is 0.53 m/s. Tricuspid Valve: The tricuspid valve is structurally normal. There is mild tricuspid regurgitation. The Doppler estimated right ventricular systolic pressure (RVSP) is mildly elevated at 39 mmHg. Pulmonic Valve: The pulmonic valve is structurally normal. There is physiologic pulmonic valve regurgitation. Pericardium: Trivial pericardial effusion. Aorta: The aortic root is normal. Systemic Veins: The inferior vena cava was not well visualized, IVC inspiratory collapse is not well visualized. In comparison to the previous echocardiogram(s): Compared with study dated 07/31/2024, [facility], no significant changes from the report, images not currently available. Note the prior exam reported mildly enlarged RV which was not well seen today. In addition there was previously an agitated saline contrast study that was neative for intracardiac shunt. CONCLUSIONS: 1. Left ventricular ejection fraction is normal by visual estimate at 60-65%. 2. Spectral Doppler shows a Grade I (impaired relaxation pattern) of left ventricular diastolic filling with normal left atrial filling pressure. 3. Unable to determine right ventricular systolic function. 4. The Doppler estimated RVSP is mildly elevated at 39 mmHg. 5. Mild aortic valve regurgitation. 6. Compared with study dated 07/31/2024, [facility], no significant changes from the report, images not currently available. Note the prior exam reported mildly enlarged RV which was not well seen today. In addition there was previously an agitated saline contrast study that was neative for intracardiac shunt. QUANTITATIVE DATA SUMMARY: 2D MEASUREMENTS: Normal Ranges: Ao Root d: 3.20 cm (2.0-3.7cm) LAs: 3.40 cm (2.7-4.0cm) IVSd: 0.70 cm (0.6-1.1cm) LVPWd: 0.70 cm (0.6-1.1cm) LVIDd: 4.70 cm (3.9-5.9cm) LVIDs: 2.80 cm LV Mass Index: 59 g/m2 LVEDV Index: 55 ml/m2 LV % FS 40.4 % LEFT ATRIUM: Normal Ranges: LA Vol A4C: 37.6 ml (22+/-6mL/m2) LA Vol A2C: 25.7 ml LA Vol BP: 32.7 ml LA Vol Index A4C: 21.5ml/m2 LA Vol Index A2C: 14.7 ml/m2 LA Vol Index BP: 18.7 ml/m2 LA Area A4C: 13.9 cm2 LA Area A2C: 12.1 cm2 LA Major [place] A4C: 4.4 cm LA Major [place] A2C: 4.8 cm RIGHT ATRIUM: Normal Ranges: RA Area A4C: 7.7 cm2 AORTA MEASUREMENTS: Normal Ranges: Ao Sinus, d: 3.20 cm (2.1-3.5cm) Asc Ao, d: 3.00 cm (2.1-3.4cm) LV SYSTOLIC FUNCTION: Normal Ranges: EF-A4C View: 70 % (>=55%) EF-A2C View: 63 % EF-Biplane: 67 % EF-Visual: 63 % LV EF Reported: 63 % LV DIASTOLIC FUNCTION: Normal Ranges: MV Peak E: 0.53 m/s (0.7-1.2 m/s) MV Peak A: 0.72 m/s (0.42-0.7 m/s) E/A Ratio: 0.73 (1.0-2.2) MV e' 0.086 m/s (>8.0) MV lateral e' 0.11 m/s MV medial e' 0.07 m/s E/e' Ratio: 6.11 (<8.0) PulmV Sys Neetu: 67.70 cm/s (more content not included)... Normal [facility] US Heart TransthoracicOrdere d By: Noelle Roberts on 05-13-2025 Aortic Valve Area by Continuity of Peak Velocity 1.77 cm2 [facility] Work Phone: Aortic Valve Area by Continuity of VTI 1.69 cm2 [facility] Work Phone: AV mn grad 8 mmHg [facility] Work Phone: AV pk grad 15 mmHg [facility] Work Phone: AV pk neetu 1.92 m/s [facility] Work Phone: LA vol index A/L 18.7 ml/m2 [facility] Work Phone: LV A4C EF 70.4 [facility] Work Phone: LV EF 63 % [facility] Work Phone: LVIDd 4.70 cm [facility] Work Phone: LVOT diam 2.00 cm [facility] Work Phone: MV E/A ratio 0.73 [facility] Work Phone: RV free wall pk S' 12.60 cm/s [facility] Work Phone: RVSP 39 mmHg [facility] Work Phone: Tricuspid annular plane systolic excursion 2.2 cm [facility] Work Phone: [facility] Work Phone: US Heart Transthoracicon [facility], [address] [place] [address] and TRANSTHORACIC ECHOCARDIOGRAM REPORT Patient Name: FAWN Lee Physician: [id number] Noelle Roberts MD Study Date: 05/13/2025 Ordering Provider: [id number] LAY WALDROP MRN/PID: [id number] Fellow: Nurse: Date of /Age: 5 1935 / 89 City Auditor: Enmanuel Joyce years RDCS, RVT Gender assigned at M Additional Staff: : Height: 167.64 cm Admit Date: 05/10/2025 Weight: 66.23 kg Admission Status: Inpatient - STAT BSA / BMI: 1.75 m2 / 23.57 kg/m2 Blood Pressure: 120/77 mmHg Department Location: [place] [address] Study Type: TRANSTHORACIC ECHO (TTE) COMPLETE Diagnosis/ICD: Syncope-R55 Indication: syncopal work-up CPT Code: Echo Complete w Full Doppler-04211 Patient History: Pertinent History: HTN, HLD, TIA, bradycardia. Study Detail: The following Echo studies were performed: 2D, M-Mode, Doppler and color flow. PHYSICIAN INTERPRETATION: Left Ventricle: Left ventricular ejection fraction is normal by visual estimate at 60-65%. There are no regional left ventricular wall motion abnormalities. The left ventricular cavity size is normal. There is normal septal and normal posterior left ventricular wall thickness. Spectral Doppler shows a Grade I (impaired relaxation pattern) of left ventricular diastolic filling with normal left atrial filling pressure. Left Atrium: The left atrial size is normal. There is a mobile interatrial septum. Right Ventricle: The right ventricle was not well visualized. Unable to determine right ventricular systolic function. Right Atrium: The right atrial size was not well visualized. Aortic Valve: The aortic valve is trileaflet. The aortic valve area by VTI is 1.69 cm with a peak velocity of 1.92 m/s. The peak and mean gradients are 15 mmHg and 8 mmHg, respectively with a dimensionless index of 0.54. There is mild aortic valve cusp calcification. There is mild aortic valve regurgitation. Mitral Valve: The mitral valve is normal in structure. There is trace mitral valve regurgitation. The E Vmax is 0.53 m/s. Tricuspid Valve: The tricuspid valve is structurally normal. There is mild tricuspid regurgitation. The Doppler estimated right ventricular systolic pressure (RVSP) is mildly elevated at 39 mmHg. Pulmonic Valve: The pulmonic valve is structurally normal. There is physiologic pulmonic valve regurgitation. Pericardium: Trivial pericardial effusion. Aorta: The aortic root is normal. Systemic Veins: The inferior vena cava was not well visualized, IVC inspiratory collapse is not well visualized. In comparison to the previous echocardiogram(s): Compared with study dated 07/31/2024, [facility], no significant changes from the report, images not currently available. Note the prior exam reported mildly enlarged RV which was not well seen today. In addition there was previously an agitated saline contrast study that was neative for intracardiac shunt. CONCLUSIONS: 1. Left ventricular ejection fraction is normal by visual estimate at 60-65%. 2. Spectral Doppler shows a Grade I (impaired relaxation pattern) of left ventricular diastolic filling with normal left atrial filling pressure. 3. Unable to determine right ventricular systolic function. 4. The Doppler estimated RVSP is mildly elevated at 39 mmHg. 5. Mild aortic valve regurgitation. 6. Compared with study dated 07/31/2024, [facility], no significant changes from the report, images not currently available. Note the prior exam reported mildly enlarged RV which was not well seen today. In addition there was previously an agitated saline contrast study that was neative for intracardiac shunt. QUANTITATIVE DATA SUMMARY: 2D MEASUREMENTS: Normal Ranges: Ao Root d: 3.20 cm (2.0-3.7cm) LAs: 3.40 cm (2.7-4.0cm) IVSd: 0.70 cm (0.6-1.1cm) LVPWd: 0.70 cm (0.6-1.1cm) LVIDd: 4.70 cm (3.9-5.9cm) LVIDs: 2.80 cm LV Mass Index: 59 g/m2 LVEDV Index: 55 ml/m2 LV % FS 40.4 % LEFT ATRIUM: Normal Ranges: LA Vol A4C: 37.6 ml (22+/-6mL/m2) LA Vol A2C: 25.7 ml LA Vol BP: 32.7 ml LA Vol Index A4C: 21.5ml/m2 LA Vol Index A2C: 14.7 ml/m2 LA Vol Index BP: 18.7 ml/m2 LA Area A4C: 13.9 cm2 LA Area A2C: (more content not included)... Noelle Mullins MD - 05/13/2025 [facility], [address] [place] [address] and TRANSTHORACIC ECHOCARDIOGRAM REPORT Patient Name: FAWN CAMERON Reading Physician: [id number] Noelle Roberts MD Study Date: 05/13/2025 Ordering Provider: [id number] LAY Hoskins PALMA MRN/PID: [id number] Fellow: Nurse: Date of /Age: 5 1935 City Auditor: Enmanuel Cook years RDCS, RVT Gender assigned at M Additional Staff: : Height: 167.64 cm Admit Date: 05/10/2025 Weight: 66.23 kg Admission Status: Inpatient - STAT BSA / BMI: 1.75 m2 / 23.57 kg/m2 Blood Pressure: 120/77 mmHg Department Location: [place] [address] Study Type: TRANSTHORACIC ECHO (TTE) COMPLETE Diagnosis/ICD: Syncope-R55 Indication: syncopal work-up CPT Code: Echo Complete w Full Doppler-[id number] Patient History: Pertinent History: HTN, HLD, TIA, bradycardia. Study Detail: The following Echo studies were performed: 2D, M-Mode, Doppler and color flow. PHYSICIAN INTERPRETATION: Left Ventricle: Left ventricular ejection fraction is normal by visual estimate at 60-65%. There are no regional left ventricular wall motion abnormalities. The left ventricular cavity size is normal. There is normal septal and normal posterior left ventricular wall thickness. Spectral Doppler shows a Grade I (impaired relaxation pattern) of left ventricular diastolic filling with normal left atrial filling pressure. Left Atrium: The left atrial size is normal. There is a mobile interatrial septum. Right Ventricle: The right ventricle was not well visualized. Unable to determine right ventricular systolic function. Right Atrium: The right atrial size was not well visualized. Aortic Valve: The aortic valve is trileaflet. The aortic valve area by VTI is 1.69 cm with a peak velocity of 1.92 m/s. The peak and mean gradients are 15 mmHg and 8 mmHg, respectively with a dimensionless index of 0.54. There is mild aortic valve cusp calcification. There is mild aortic valve regurgitation. Mitral Valve: The mitral valve is normal in structure. There is trace mitral valve regurgitation. The E Vmax is 0.53 m/s. Tricuspid Valve: The tricuspid valve is structurally normal. There is mild tricuspid regurgitation. The Doppler estimated right ventricular systolic pressure (RVSP) is mildly elevated at 39 mmHg. Pulmonic Valve: The pulmonic valve is structurally normal. There is physiologic pulmonic valve regurgitation. Pericardium: Trivial pericardial effusion. Aorta: The aortic root is normal. Systemic Veins: The inferior vena cava was not well visualized, IVC inspiratory collapse is not well visualized. In comparison to the previous echocardiogram(s): Compared with study dated 07/31/2024, [facility], no significant changes from the report, images not currently available. Note the prior exam reported mildly enlarged RV which was not well seen today. In addition there was previously an agitated saline contrast study that was neative for intracardiac shunt. CONCLUSIONS: 1. Left ventricular ejection fraction is normal by visual estimate at 60-65%. 2. Spectral Doppler shows a Grade I (impaired relaxation pattern) of left ventricular diastolic filling with normal left atrial filling pressure. 3. Unable to determine right ventricular systolic function. 4. The Doppler estimated RVSP is mildly elevated at 39 mmHg. 5. Mild aortic valve regurgitation. 6. Compared with study dated 07/31/2024, [facility], no significant changes from the report, images not currently available. Note the prior exam reported mildly enlarged RV which was not well seen today. In addition there was previously an agitated saline contrast study that was neative for intracardiac shunt. QUANTITATIVE DATA SUMMARY: 2D MEASUREMENTS: Normal Ranges: Ao Root d: 3.20 cm (2.0-3.7cm) LAs: 3.40 cm (2.7-4.0cm) IVSd: 0.70 cm (0.6-1.1cm) LVPWd: 0.70 cm (0.6-1.1cm) LVIDd: 4.70 cm (3.9-5.9cm) LVIDs: 2.80 cm LV Mass Index: 59 g/m2 LVEDV Index: 55 ml/m2 LV % FS 40.4 % LEFT ATRIUM: Normal Ranges: LA Vol A4C: 37.6 ml (22+/-6mL/m2) LA Vol A2C: 25.7 ml LA Vol BP: 32.7 ml LA Vol Index A4C: 21.5ml/m2 LA Vol Index A2C: 14.7 ml/m2 LA Vol Index BP: 18.7 ml/m2 LA Area A4C: 13.9 cm2 LA Area A2C: 12.1 cm2 LA Major [place] A4C: 4.4 cm LA Major [place] A2C: 4.8 cm RIGHT ATRIUM: Normal Ranges: RA Area A4C: 7.7 cm2 AORTA MEASUREMENTS: Normal Ranges: Ao Sinus, d: 3.20 cm (2.1-3.5cm) Asc Ao, d: 3.00 cm (2.1-3.4cm) LV SYSTOLIC FUNCTION: Normal Ranges: EF-A4C View: 70 % (>=55%) EF-A2C View: 63 % EF-Biplane: 67 % EF-Visual: 63 % LV EF Reported: 63 % LV DIASTOLIC FUNCTION: Normal Ranges: MV Peak E: 0.53 m/s (0.7-1.2 m/s) MV Peak A: 0.72 m/s (0.42-0.7 m/s) E/A Ratio: 0.73 (1.0-2.2) MV e' 0.086 m/s ( (more content not included)... [facility] Work Phone: 25-hydroxyvitamin D3 [Mass/V ol]on 05-12-2025 Deficiency: < 20 ng/ml Insufficiency: 20-29 ng/ml Sufficiency: 30-100 ng/ml This assay accurately quantifies the sum of Vitamin D3, 25-Hydroxy and Vitamin D2,25-Hydroxy. [facility] Calcidiolon 05-12-2025 25-hydroxyvitamin D3 [Mass/Vol] 18 ng/mL Low 30-100 [facility] Comment on above: Order Comment: Defic iency: < 20 ng/mlInsufficiency: 20-29 ng/mlSufficiency: 30-100 ng/mlThis assay accurately quantifies the sum of Vitamin D3, 25-Hydroxy and Vitamin D2,25-Hydroxy. Performed By: #### 5 7021-8 #### GAGNON IRENA ([id number]) [facility]) [address] [place] [address] Cobalamin (Vitamin B12) [Mas s/Vol]on 05-12-2025 Interpretation and review of laboratory results Normal [facility] Cobalaminson 05-12-2025 Cobalamin (Vitamin B12) [Mass/Vol] 283 pg/mL Normal 211-911 [facility] Comment on above: Performed By: #### 2 4323-8 #### GAGNON IRENA ([id number]) [facility]) [facility] [place] [address] Free T4 [Mass/Vol]on Interpretation and review of laboratory results Normal [facility] Thyroxine Free testing is performed using different testing methodology at [facility] than at other [facility]. Direct result comparisons should only be made within the same method. [facility] Magnesiumon 05-12-2025 Magnesium [Mass/Vol] 1.75 mg/dL 1.60 - 2.40 mg/dL [facility] Magnesium [Mass/Vol] 1.75 mg/dL Normal 1.60-2.40 [facility] Comment on above: Performed By: #### 2 4323-8 #### GAGNON IRENA ([id number]) [facility]) [facility] [place] [address] Magnesium [Mass/Vol]on 05-12 Interpretation and review of laboratory results Normal [facility] No Panel Informationon 05-12 Interpretation and review of laboratory results Abnormal [facility] Renal function 2000 panelon 05-12-2025 Albumin BCP dye [Mass/Vol] 3.1 g/dL Low 3.4 - 5.0 g/dL [facility] Anion gap [Moles/Vol] 12 mmol/L 10 - 2 0 mmol/L [facility] Calcium [Mass/Vol] 7.2 mg/dL Low 8.6 - 10. 6 mg/dL [facility] Chloride [Moles/Vol] 109 mmol/L High 98 - 10 7 mmol/L [facility] CO2 [Moles/Vol] 22 mmol/L 21 - 32 mmol/L [facility] Creatinine [Mass/Vol] 0.66 mg/dL 0.50 - 1.30 mg/dL [facility] GFR/1.73 sq M.predicted among non-blacks MDRD (S/P/Bld) [Vol rate/Area] 90 mL/min/{1.73_m2} - PINF [facility] Comment on above: Calculations of leonides mated GFR are performed using the 2020 CKD-EPI Study Refit equation without the race variable for the IDMS-Traceable creatinine methods. https://jasn.asnjournals.org/content//ASN.49284 10742 Glucose [Mass/Vol] 81 mg/dL 74 - 99 mg/dL [facility] Interpretation and review of laboratory results Abnormal [facility] Phosphate [Mass/Vol] 3.0 mg/dL 2.5 - 4 .9 mg/dL [facility] Potassium [Moles/Vol] 3.5 mmol/L 3.5 - 5.3 mmol/L [facility] Sodium [Moles/Vol] 139 mmol/L 136 - 145 mmol/L [facility] Urea nitrogen [Mass/Vol] 18 mg/dL 6 - 23 mg/dL [facility] Albumin BCP dye [Mass/Vol] 3.1 g/dL Low 3.4-5.0 [facility] Comment on above: Performed By: #### 2 4323-8 #### KALIN OSBORN ([id number]) [facility]) [address] [place] [address] Anion gap [Moles/Vol] 12 mmol/L Normal 10-20 [facility] Comment on above: Performed By: #### 2 4323-8 #### KALIN OSBORN ([id number]) [facility]) [address] [place] [address] Calcium [Mass/Vol] 7.2 mg/dL Low 8.6-10.6 [facility] Comment on above: Performed By: #### 2 4323-8 #### KALIN OSBORN ([id number]) [facility]) [address] [place] [address] Chloride [Moles/Vol] 109 mmol/L High 98-107 [facility] Comment on above: Performed By: #### 2 4323-8 #### KALIN OSBORN ([id number]) [facility]) [address] [place] [address] CO2 [Moles/Vol] 22 mmol/L Normal 21-32 [facility] Comment on above: Performed By: #### 2 4323-8 #### KALIN OSBORN ([id number]) [facility]) [address] [place] [address] Creatinine [Mass/Vol] 0.66 mg/dL Normal 0.50-1.30 [facility] Comment on above: Performed By: #### 2 4323-8 #### KALIN OSBORN ([id number]) [facility]) [address] [place] [address] Glomerular filtration rate/1.73 sq M.predicted 90 mL/min/1.73m*2 Normal >60 [facility] Comment on above: Result Comment: Calc ulations of estimated GFR are performed using the 2020 CKD-EPI Study Refit equation without the race variable for the IDMS-Traceable creatinine methods. https://jasn.asnjournals.org/content//ASN.25386 45529 Performed By: #### 2 4323-8 #### KALIN OSBORN ([id number]) [facility]) [address] [place] [address] Glucose [Mass/Vol] 81 mg/dL Normal 74-99 [facility] Comment on above: Performed By: #### 2 4323-8 #### KALIN OSBORN ([id number]) [facility]) [address] [place] [address] Phosphate [Mass/Vol] 3.0 mg/dL Normal 2.5-4.9 [facility] Comment on above: Performed By: #### 2 4323-8 #### KALIN OSBORN ([id number]) [facility]) [address] [place] [address] Potassium [Moles/Vol] 3.5 mmol/L Normal 3.5-5.3 [facility] Comment on above: Performed By: #### 2 4323-8 #### KALIN OSBORN ([id number]) [facility]) [address] [place] [address] Sodium [Moles/Vol] 139 mmol/L Normal 136-145 [facility] Comment on above: Performed By: #### 2 4323-8 #### KALIN OSBORN ([id number]) [facility]) [address] [place] [address] Urea nitrogen [Mass/Vol] 18 mg/dL Normal 6-23 [facility] Comment on above: Performed By: #### 2 4323-8 #### KALIN OSBORN ([id number]) [facility]) [address] [place], [place] [id number] TSH WITH REFLEX TO FREE T4 I F ABNORMALon 05-12-2025 TSH Qn 4.88 m[IU]/L High 0.44-3.98 [facility] Comment on above: Order Comment: TSH t esting is performed using different testing methodology at [facility] than at other [facility]. Direct result comparisons should only be made within the same method. Performed By: #### 2 4323-8 #### KALIN OSBORN ([id number]) [facility] [address] [place] [address] TSH with reflex to Free T4 i f abnormalon 05-12-2025 TSH Qn 4.88 m[IU]/L High [facility] TSH testing is performed using different testing methodology at [facility] than at other [facility]. Direct result comparisons should only be made within the same method. [facility] Thyroxine, Freeon 05-12-2025 Free T4 [Mass/Vol] 1.15 ng/dL 0.78 - 1. 48 ng/dL [facility] Thyroxine.freeon 05-12-2025 Free T4 [Mass/Vol] 1.15 ng/dL Normal 0.78-1.48 [facility] Comment on above: Order Comment: Thyro xine Free testing is performed using different testing methodology at [facility] than at other [facility]. Direct result comparisons should only be made within the same method. Performed By: #### 5 7021-8 #### KALIN OSBORN ([id number]) [facility]) [address] [place], [place] [id number] Vitamin B12on 05-12-2025 Cobalamin (Vitamin B12) [Mass/Vol] 283 pg/mL 211 - 911 pg/mL [facility] Vitamin D 25-Hydroxy,Total ( for eval of Vitamin D levels)on 05-12-2025 25-hydroxyvitamin D3 [Mass/Vol] 18 ng/mL Low 30 - 100 ng/mL [facility] Basic metabolic 2000 panelon 05-11-2025 Anion gap [Moles/Vol] 9 mmol/L Low 10 - 2 0 mmol/L [facility] Calcium [Mass/Vol] 8.5 mg/dL Low 8.6 - 10. 6 mg/dL [facility] Chloride [Moles/Vol] 104 mmol/L 98 - 10 7 mmol/L [facility] CO2 [Moles/Vol] 30 mmol/L 21 - 32 mmol/L [facility] Creatinine [Mass/Vol] 0.89 mg/dL 0.50 - 1.30 mg/dL [facility] GFR/1.73 sq M.predicted among non-blacks MDRD (S/P/Bld) [Vol rate/Area] 82 mL/min/{1.73_m2} - PINF [facility] Comment on above: Calculations of leonides mated GFR are performed using the 2020 CKD-EPI Study Refit equation without the race variable for the IDMS-Traceable creatinine methods. https://jasn.asnjournals.org/content//ASN.39709 46036 Glucose [Mass/Vol] 124 mg/dL High 74 - 99 mg/dL [facility] Interpretation and review of laboratory results Abnormal [facility] Potassium [Moles/Vol] 3.6 mmol/L 3.5 - 5.3 mmol/L [facility] Sodium [Moles/Vol] 139 mmol/L 136 - 145 mmol/L [facility] Urea nitrogen [Mass/Vol] 21 mg/dL 6 - 23 mg/dL [facility] Anion gap [Moles/Vol] 9 mmol/L Low 10-20 [facility] Comment on above: Performed By: #### 2 4323-8 #### KALIN OSBORN ([id number]) [facility]) [address] [place] [address] Calcium [Mass/Vol] 8.5 mg/dL Low 8.6-10.6 [facility] Comment on above: Performed By: #### 2 4323-8 #### KALIN OSBORN ([id number]) [facility]) [address] [place] [address] Chloride [Moles/Vol] 104 mmol/L Normal 98-107 [facility] Comment on above: Performed By: #### 2 4323-8 #### KALIN OSBORN ([id number]) [facility] [address] [place] [address] CO2 [Moles/Vol] 30 mmol/L Normal 21-32 [facility] Comment on above: Performed By: #### 2 4323-8 #### KALIN OSBORN ([id number]) [facility]) [address] [place] [address] Creatinine [Mass/Vol] 0.89 mg/dL Normal 0.50-1.30 [facility] Comment on above: Performed By: #### 2 4323-8 #### KALIN OSBORN ([id number]) [facility]) [address] [place] [address]98 Glomerular filtration rate/1.73 sq M.predicted 82 mL/min/1.73m*2 Normal >60 [facility] Comment on above: Result Comment: Calc ulations of estimated GFR are performed using the 2020 CKD-EPI Study Refit equation without the race variable for the IDMS-Traceable creatinine methods. https://jasn.asnjournals.org/content/early/ASN.17697 20113 Performed By: #### 2 4323-8 #### KALIN OSBORN ([id number]) [facility]) [facility] [place] [address] Glucose [Mass/Vol] 124 mg/dL High 74-99 [facility] Comment on above: Performed By: #### 2 4323-8 #### KALIN OSBORN ([id number]) [facility] [address] [place] [address] Potassium [Moles/Vol] 3.6 mmol/L Normal 3.5-5.3 [facility] Comment on above: Performed By: #### 2 4323-8 #### KALIN OSBORN ([id number]) [facility]) [address] [place] [address]283 Sodium [Moles/Vol] 139 mmol/L Normal 136-145 [facility] Comment on above: Performed By: #### 2 4323-8 #### KALIN OSBORN ([id number]) [facility]) [address] [place], [place] [address] Urea nitrogen [Mass/Vol] 21 mg/dL Normal 6-23 [facility] Comment on above: Performed By: #### 2 4323-8 #### KALIN OSBORN ([id number]) [facility] [address] [place] [address]003 CBC panel Auto (Bld)on 05-11 Erythrocyte distribution width (RBC) [Ratio] 12.6 % 11.5 - 14.5 % [facility] Hematocrit (Bld) [Volume fraction] 32.9 % Low 41.0 - 52.0 % [facility] Hemoglobin (Bld) [Mass/Vol] 11.4 g/dL Low 13.5 - 17.5 g/dL [facility] Interpretation and review of laboratory results Abnormal [facility] MCH (RBC) [Entitic mass] 33.5 pg 26.0 - 34.0 pg [facility] MCHC (RBC) [Mass/Vol] 34.7 g/dL 32.0 - 36.0 g/dL [facility] MCV (RBC) [Entitic vol] 97 fL 80 - 100 fL [facility] Nucleated RBC/100 WBC (Bld) [Ratio] 0.0 % [facility] Platelets (Bld) [#/Vol] 204 10*3/uL [facility] RBC (Bld) [#/Vol] 3.40 10*6/uL Low [facility] WBC (Bld) [#/Vol] 10.7 10*3/uL [facility] Erythrocyte distribution width (RBC) [Ratio] 12.6 % Normal 11.5-14.5 [facility] Comment on above: Performed By: #### 2 4323-8 #### KALIN OSBORN ([id number]) [facility]) [address] [place] [address]00 Hematocrit (Bld) [Volume fraction] 32.9 % Low 41.0-52.0 [facility] Comment on above: Performed By: #### 2 4323-8 #### KALIN OSBORN ([id number]) [facility]) [address] [place] [address]37 Hemoglobin (Bld) [Mass/Vol] 11.4 g/dL Low 13.5-17.5 [facility] Comment on above: Performed By: #### 2 4323-8 #### KALIN OSBORN ([id number]) [facility]) [address] [place] [address] 46083 MCH (RBC) [Entitic mass] 33.5 pg Normal 26.0-34.0 [facility] Comment on above: Performed By: #### 2 4323-8 #### KALIN OSBORN ([id number]) [facility]) [address] [place] [address]67 MCHC (RBC) [Mass/Vol] 34.7 g/dL Normal 32.0-36.0 [facility] Comment on above: Performed By: #### 2 4323-8 #### KALIN OSBORN ([id number]) [facility]) [address] [place] [address]181 MCV (RBC) [Entitic vol] 97 fL Normal 80-100 [facility] Comment on above: Performed By: #### 2 4323-8 #### KALIN OSBORN ([id number]) [facility]) [address] [place] [address] 74905 Nucleated RBC/100 WBC (Bld) [Ratio] 0.0 /100 WBCs Normal 0.0-0.0 [facility] Comment on above: Performed By: #### 2 4323-8 #### AKLIN OSBORN ([id number]) [facility]) [address] [place] [address] 83899 Platelets (Bld) [#/Vol] 204 x10*3/uL Normal 150-450 [facility] Comment on above: Performed By: #### 2 4323-8 #### KALIN OSBORN ([id number]) [facility]) [address] [place] [address] 04126 RBC (Bld) [#/Vol] 3.40 x10*6/uL Low 4.50-5.90 [facility] Comment on above: Performed By: #### 2 4323-8 #### KALIN OSBORN ([id number]) [facility]) [address] [place] [address] 10815 WBC (Bld) [#/Vol] 10.7 x10*3/uL Normal 4.4-11.3 [facility] Comment on above: Performed By: #### 2 4323-8 #### KALIN OSBORN ([id number]) [facility]) [address] [place] [address] Head WO contraston 2024 Redemonstration of minimally displaced acute fracture of the right orbital roof with stable extra-axial hemorrhage along the anterolateral right frontal lobe. Additional linear hyperdense foci along the sulci right parietal lobe suspicious for subarachnoid hemorrhage. No new hemorrhage is identified. Question subtle hyperdense focus along the left frontal lobe opacity described above may relate to small focus of extra-axial hemorrhage. Attention on continued follow-up is advised. I personally reviewed the images/study and I agree with the findings as stated by Gregory Dueñas MD (PGY-3). This study was interpreted at [facility], [place], [place]. MACRO: None Signed by: Wanda Montalvo 05/11/2025 12:03 AM Dictation workstation: [id number] Interpreted By: Wanda Montalvo and Omar Mahmoud STUDY: CT HEAD WO IV CONTRAST; 05/10/2025 11:27 pm INDICATION: Signs/Symptoms:Trauma , intracranial bleeding. Stability scan. COMPARISON: CT head without IV contrast 05/10/2025 3:03 p.m.. ACCESSION NUMBER(S): [id number] ORDERING CLINICIAN: CARRI GREER TECHNIQUE: Noncontrast axial CT scan of head was performed. Angled reformats in brain and bone windows were generated. The images were reviewed in bone, brain, blood and soft tissue windows. FINDINGS: CSF Spaces: The ventricles, sulci and basal cisterns are within normal limits. Similar size and appearance of extra-axial hemorrhage along the anterolateral right frontal lobe (series 204, image 49) currently measuring 3 mm in thickness (series 206, image 39), previously measuring 2 mm. Parenchyma: There is mild periventricular and subcortical white matter hypodensities, similar as compared to prior and likely represents sequela of chronic microvascular ischemic changes. No new loss of callaway-white differentiation. There is no mass effect or midline shift. Several linear foci of hyperattenuation noted along the sulci right parietal lobe suspicious for subarachnoid hemorrhage. A subtle hyperdense focus is redemonstrated along the left frontal lobe as seen on axial image 60 of series 204. This is suspicious for small focus of extra-axial hemorrhage. No new hemorrhage is identified. Calvarium: Redemonstrated minimally displaced acute fracture of the right orbital roof (series 206 image 40). Soft tissue laceration right frontal scalp extending to the zygoma. Paranasal sinuses and mastoids: Visualized paranasal sinuses and mastoids are clear. Atherosclerotic calcification of the carotid siphons and vertebral arteries [facility] Wanda Montalvo MD - 05/11/2025 Interpreted By: Wanda Montalvo and Omar Mahmoud STUDY: CT HEAD WO IV CONTRAST; 05/10/2025 11:27 pm INDICATION: Signs/Symptoms:Trauma , intracranial bleeding. Stability scan. COMPARISON: CT head without IV contrast 05/10/2025 3:03 p.m.. ACCESSION NUMBER(S): [id number] ORDERING CLINICIAN: CARRI GREER TECHNIQUE: Noncontrast axial CT scan of head was performed. Angled reformats in brain and bone windows were generated. The images were reviewed in bone, brain, blood and soft tissue windows. FINDINGS: CSF Spaces: The ventricles, sulci and basal cisterns are within normal limits. Similar size and appearance of extra-axial hemorrhage along the anterolateral right frontal lobe (series 204, image 49) currently measuring 3 mm in thickness (series 206, image 39), previously measuring 2 mm. Parenchyma: There is mild periventricular and subcortical white matter hypodensities, similar as compared to prior and likely represents sequela of chronic microvascular ischemic changes. No new loss of callaway-white differentiation. There is no mass effect or midline shift. Several linear foci of hyperattenuation noted along the sulci right parietal lobe suspicious for subarachnoid hemorrhage. A subtle hyperdense focus is redemonstrated along the left frontal lobe as seen on axial image 60 of series 204. This is suspicious for small focus of extra-axial hemorrhage. No new hemorrhage is identified. Calvarium: Redemonstrated minimally displaced acute fracture of the right orbital roof (series 206 image 40). Soft tissue laceration right frontal scalp extending to the zygoma. Paranasal sinuses and mastoids: Visualized paranasal sinuses and mastoids are clear. Atherosclerotic calcification of the carotid siphons and vertebral arteries IMPRESSION: Redemonstration of minimally displaced acute fracture of the right orbital roof with stable extra-axial hemorrhage along the anterolateral right frontal lobe. Additional linear hyperdense foci along the sulci right parietal lobe suspicious for subarachnoid hemorrhage. No new hemorrhage is identified. Question subtle hyperdense focus along the left frontal lobe opacity described above may relate to small focus of extra-axial hemorrhage. Attention on continued follow-up is advised. I personally reviewed the images/study and I agree with the findings as stated by Gregory Dueñas MD (PGY-3). This study was interpreted at [place], [place]. MACRO: None Signed by: Wanda Montalvo 05/11/2025 12:03 AM Dictation workstation: [id number] [facility] Work Phone: CT Head WO contrastOrdered B y: Wanda Montalvo on 05-11-2025 [facility] Work Phone: ECG 12 leadOrdered By: Lew Garcia on 05-11-2025 Atrial Rate 72 BPM [facility] Work Phone: P [place] 31 degrees [facility] Work Phone: P Offset 178 ms [facility] Work Phone: P Onset 115 ms [facility] Work Phone: [place] Interval 190 ms [facility] Work Phone: Q Onset 210 ms [facility] Work Phone: QRS Count 12 beats [facility] Work Phone: QRS Duration 104 ms [facility] Work Phone: QT Interval 394 ms [facility] Work Phone: QTC Calculation(Bazett) [address] [facility] Work Phone: QTC Fredericia 418 ms [facility] Work Phone: R [place] -15 degrees [facility] Work Phone: T [place] 44 degrees [facility] Work Phone: T Offset 407 ms [facility] Work Phone: Ventricular Rate 72 BPM [facility]: [facility] Work Phone: ECG 12 leadon 05-11-2025 Normal sinus rhythm Normal ECG When compared with ECG of 10-MAY-2025 13:54, No significant change was found See ED provider note for full interpretation and clinical correlation Confirmed by Yolanda Garcia ([id number]) on 05/11/2025 3:47:31 AM MUSE Yolanda Garcia PA-C - 05/11/2025 Normal sinus rhythm Normal ECG When compared with ECG of 10-MAY-2025 13:54, No significant change was found See ED provider note for full interpretation and clinical correlation Confirmed by Yolanda Garcia ([id number]) on 05/11/2025 3:47:31 AM [facility] Work Phone: ECG 12-LEADon 05-11-2025 ECG 12-LEAD Ventricular Rate 72 Atrial Rate 72 P-R Interval 190 QRS Duration 104 Q-T Interval 394 QTC Calculation(Bazett) 431 P [place] 31 R [place] -15 T [place] 44 QRS Count 12 Q Onset 210 P Onset 115 P Offset 178 T Offset 407 QTC Fredericia 418 Diagnosis Normal sinus rhythm Normal ECG When compared with ECG of 10-MAY-2025 13:54, No significant change was found See ED provider note for full interpretation and clinical correlation Confirmed by Yolanda Garcia ([id number]) on 05/11/2025 3:47:31 AM Normal [facility] Magnesiumon 05-11-2025 Magnesium [Mass/Vol] 1.86 mg/dL 1.60 - 2.40 mg/dL [facility] Magnesium [Mass/Vol] 1.86 mg/dL Normal 1.60-2.40 [facility] Comment on above: Performed By: #### 2 4323-8 #### GAGNON IRENA ([id number]) [facility] [address] [place] [address] Magnesium [Mass/Vol]on 05-11 Interpretation and review of laboratory results Normal [facility] Natriuretic peptide B [Mass/ Vol]on 05-11-2025 Interpretation and review of laboratory results Normal [facility] Natriuretic peptide B (Bld) [Mass/Vol] 56 pg/mL 0 - 99 pg/mL [facility] <100 pg/mL - Heart failure unlikely 100-299 pg/mL - Intermediate probability of acute heart failure exacerbation. Correlate with clinical context and patient history. >=300 pg/mL - Heart Failure likely. Correlate with clinical context and patient history. Biotin interference may cause falsely decreased results. Patients taking a Biotin dose of up to 5 mg/day should refrain from taking Biotin for 24 hours before sample collection. Providers may contact their local laboratory for further information. [facility] Natriuretic peptide B (Bld) [Mass/Vol] 56 pg/mL Normal 0-99 [facility] Comment on above: Order Comment: <100 pg/mL - Heart failure [id number] pg/mL - Intermediate probability of acute heart failure exacerbation. Correlate with clinical context and patient history. >=300 pg/mL - Heart Failure likely. Correlate with clinical context and patient history.Biotin interference may cause falsely decreased results. Patients taking a Biotin dose of up to 5 mg/day should refrain from taking Biotin for 24 hours before sample collection. Providers may contact their local laboratory for further information. Performed By: #### 2 4323-8 #### GAGNON IRENA ([id number]) [facility]) [address] [place] [address] XR CHEST 1 VIEWon 05-11-2025 XR CHEST 1 VIEW STUDY: Chest Radiograph; 05/11/2025 1:13AM INDICATION: Evaluation for surgery trauma. COMPARISON: 09/23/2022 XR chest ACCESSION NUMBER(S): [id number] ORDERING CLINICIAN: SANTIAGO MENENDEZ TECHNIQUE: Frontal chest was obtained at 01:12 hours. FINDINGS: CARDIOMEDIASTINAL SILHOUETTE: Cardiomediastinal silhouette is normal in size and configuration. Mural calcifications through the aortic arch. LUNGS: No regions of consolidation. No regions of atelectasis. ABDOMEN: No remarkable upper abdominal findings. BONES: No acute osseous changes. IMPRESSION: No acute pleural or parenchymal disease.. Signed by Isidoro Baltazar MD [facility] XR Chest Single viewon 05-11 No acute pleural or parenchymal disease.. Signed by Isidoro Baltazar MD TELERADIOLOGY STUDY: Chest Radiograph; 05/11/2025 1:13AM INDICATION: Evaluation for surgery trauma. COMPARISON: 09/23/2022 XR chest ACCESSION NUMBER(S): [id number] ORDERING CLINICIAN: SANTIAGO MENENDEZ TECHNIQUE: Frontal chest was obtained at 01:12 hours. FINDINGS: CARDIOMEDIASTINAL SILHOUETTE: Cardiomediastinal silhouette is normal in size and configuration. Mural calcifications through the aortic arch. LUNGS: No regions of consolidation. No regions of atelectasis. ABDOMEN: No remarkable upper abdominal findings. BONES: No acute osseous changes. TELERADIOLOGY Isidoro Baltazar MD - 05/11/2025 STUDY: Chest Radiograph; 05/11/2025 1:13AM INDICATION: Evaluation for surgery trauma. COMPARISON: 09/23/2022 XR chest ACCESSION NUMBER(S): [id number] ORDERING CLINICIAN: SANTIAGO MENENDEZ TECHNIQUE: Frontal chest was obtained at 01:12 hours. FINDINGS: CARDIOMEDIASTINAL SILHOUETTE: Cardiomediastinal silhouette is normal in size and configuration. Mural calcifications through the aortic arch. LUNGS: No regions of consolidation. No regions of atelectasis. ABDOMEN: No remarkable upper abdominal findings. BONES: No acute osseous changes. IMPRESSION: No acute pleural or parenchymal disease.. Signed by Isidoro Baltazar MD [facility] Work Phone: Radiology Study observation (narrative) [facility] Work Phone: XR Chest Single viewOrdered By: Isidoro Baltazar on 05-11-2025 [facility] Work Phone: XR PELVIS WITH INLET OUTLET JUDET VIEWSon 05-11-2025 XR PELVIS WITH INLET OUTLET JUDET VIEWS Interpreted By: Wanda Montalvo, Jake Jenkins STUDY: XR PELVIS WITH INLET OUTLET JUDET VIEWS; ; 05/11/2025 4:18 am INDICATION: Signs/Symptoms:eval. COMPARISON: CT chest abdomen pelvis 05/10/2025. ACCESSION NUMBER(S): [id number] ORDERING CLINICIAN: LEONARDO BERGER FINDINGS: Five view radiographs of the pelvis were performed. Generalized diffuse osteopenia. 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 Fractures of the right superior and inferior pubic rami are noted, better visualized on prior CT. Acute bilateral acetabular and right sacral alar fractures are better appreciated on comparison CT chest abdomen pelvis. Status post left hip arthroplasty. No perihardware lucency to suggest loosening. Degenerative changes of the lower lumbar spine, SI joints and symphysis pubis. Radiopaque contrast within the bladder. Vascular calcifications noted. IMPRESSION: Acute pubic rami, acetabular, and right sacral ala fractures are better appreciated on comparison CT chest abdomen pelvis. Please refer to separate report of dedicated CT for detail. Postsurgical and degenerative changes as noted above. I personally reviewed the images/study and I agree with the findings as stated by Gregory Dueñas MD (PGY-3). This study was interpreted at [place], [place]. MACRO: None Signed by: Wanda Montalvo 05/11/2025 5:01 AM Dictation workstation: [id number] Normal [facility] XR Pelvis 3 Viewson 05-11-20 Acute pubic rami, acetabular, and right sacral ala fractures are better appreciated on comparison CT chest abdomen pelvis. Please refer to separate report of dedicated CT for detail. Postsurgical and degenerative changes as noted above. I personally reviewed the images/study and I agree with the findings as stated by Gregory Dueñas MD (PGY-3). This study was interpreted at [place], [place]. MACRO: None Signed by: Wanda Montalvo 05/11/2025 5:01 AM Dictation workstation: [id number] Interpreted By: Wanda Montalvo and Omar Mahmoud STUDY: XR PELVIS WITH INLET OUTLET JUDET VIEWS; ; 05/11/2025 4:18 am INDICATION: Signs/Symptoms:eval. COMPARISON: CT chest abdomen pelvis 05/10/2025. ACCESSION NUMBER(S): [id number] ORDERING CLINICIAN: LEONARDO BERGER FINDINGS: Five view radiographs of the pelvis were performed. Generalized diffuse osteopenia. 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 Fractures of the right superior and inferior pubic rami are noted, better visualized on prior CT. Acute bilateral acetabular and right sacral alar fractures are better appreciated on comparison CT chest abdomen pelvis. Status post left hip arthroplasty. No perihardware lucency to suggest loosening. Degenerative changes of the lower lumbar spine, SI joints and symphysis pubis. Radiopaque contrast within the bladder. Vascular calcifications noted. MMODAL Wanda Montalvo MD - 05/11/2025 Interpreted By: Wanda Montalvo and Omar Mahmoud STUDY: XR PELVIS WITH INLET OUTLET JUDET VIEWS; ; 05/11/2025 4:18 am INDICATION: Signs/Symptoms:eval. COMPARISON: CT chest abdomen pelvis 05/10/2025. ACCESSION NUMBER(S): [id number] ORDERING CLINICIAN: LEONARDO BERGER FINDINGS: Five view radiographs of the pelvis were performed. Generalized diffuse osteopenia. 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 Fractures of the right superior and inferior pubic rami are noted, better visualized on prior CT. Acute bilateral acetabular and right sacral alar fractures are better appreciated on comparison CT chest abdomen pelvis. Status post left hip arthroplasty. No perihardware lucency to suggest loosening. Degenerative changes of the lower lumbar spine, SI joints and symphysis pubis. Radiopaque contrast within the bladder. Vascular calcifications noted. IMPRESSION: Acute pubic rami, acetabular, and right sacral ala fractures are better appreciated on comparison CT chest abdomen pelvis. Please refer to separate report of dedicated CT for detail. Postsurgical and degenerative changes as noted above. I personally reviewed the images/study and I agree with the findings as stated by Gregory Dueñas MD (PGY-3). This study was interpreted at [place], [place]. MACRO: None Signed by: Wanda Montalvo 05/11/2025 5:01 AM Dictation workstation: [id number] [facility] Work Phone: [facility] Work Phone: Radiology Study observation (narrative) [facility] Work Phone: Basic metabolic 2000 panelon 05-10-2025 Anion gap [Moles/Vol] 10 mmol/L 10 - 2 0 mmol/L [facility] Calcium [Mass/Vol] 8.7 mg/dL 8.6 - 10. 3 mg/dL [facility] Chloride [Moles/Vol] 106 mmol/L 98 - 10 7 mmol/L [facility] CO2 [Moles/Vol] 26 mmol/L 21 - 32 mmol/L [facility] Creatinine [Mass/Vol] 0.77 mg/dL 0.50 - 1.30 mg/dL [facility] GFR/1.73 sq M.predicted among non-blacks MDRD (S/P/Bld) [Vol rate/Area] 86 mL/min/{1.73_m2} - PINF [facility] Comment on above: Calculations of leonides mated GFR are performed using the 2020 CKD-EPI Study Refit equation without the race variable for the IDMS-Traceable creatinine methods. https://jasn.asnjournals.org/content//ASN.44121 56423 Glucose [Mass/Vol] 95 mg/dL 74 - 99 mg/dL [facility] Interpretation and review of laboratory results Abnormal [facility] Potassium [Moles/Vol] 3.9 mmol/L 3.5 - 5.3 mmol/L [facility] Sodium [Moles/Vol] 138 mmol/L 136 - 145 mmol/L [facility] Urea nitrogen [Mass/Vol] 26 mg/dL High 6 - 23 mg/dL [facility] Anion gap [Moles/Vol] 10 mmol/L Normal 10-20 [facility] Comment on above: Performed By: #### 2 4321-2 ####KALIN OSBORN ([id number])[facility])[address] [place] [address] 67280 Calcium [Mass/Vol] 8.7 mg/dL Normal 8.6-10.3 [facility] Comment on above: Performed By: #### 2 4321-2 ####KALIN OSBORN ([id number])[facility])[address] [place] [address] 59096 Chloride [Moles/Vol] 106 mmol/L Normal 98-107 [facility] Comment on above: Performed By: #### 2 4321-2 ####KALIN OSBORN ([id number])[facility])[address] [place] [address] 84399 CO2 [Moles/Vol] 26 mmol/L Normal 21-32 [facility] Comment on above: Performed By: #### 2 4321-2 ####KALIN OSBORN ([id number])[facility])[address] [place] [address] 40601 Creatinine [Mass/Vol] 0.77 mg/dL Normal 0.50-1.30 [facility] Comment on above: Performed By: #### 2 4321-2 ####KALIN OSBORN ([id number])[facility])[address] [place] [address] 19783 Glomerular filtration rate/1.73 sq M.predicted 86 mL/min/1.73m*2 Normal >60 [facility] Comment on above: Result Comment: Calc ulations of estimated GFR are performed using the 2020 CKD-EPI Study Refit equation without the race variable for the IDMS-Traceable creatinine methods. https://jasn.asnjournals.org/content//ASN.89033 69717 Performed By: #### 2 4321-2 ####KALIN OSBORN ([id number])[facility])[address] [place] [address] 75898 Glucose [Mass/Vol] 95 mg/dL Normal 74-99 [facility] Comment on above: Performed By: #### 2 4321-2 ####KALIN OSBORN ([id number])[facility])[address] [place] [address] 00166 Potassium [Moles/Vol] 3.9 mmol/L Normal 3.5-5.3 [facility] Comment on above: Performed By: #### 2 4321-2 ####KALIN OSBORN ([id number])[facility])[address] [place] [address] 90559 Sodium [Moles/Vol] 138 mmol/L Normal 136-145 [facility] Comment on above: Performed By: #### 2 4321-2 ####KALIN OSBORN ([id number])[facility])[address] [place] [address] 72715 Urea nitrogen [Mass/Vol] 26 mg/dL High 6-23 [facility] Comment on above: Performed By: #### 2 4321-2 ####KALIN OSBORN ([id number])[facility])[address] [place] [address] 94646 Blood type and Indirect anti body screen panel (Bld)on 05-10-2025 ABO group Nom (Bld) A [facility] Blood group antibody screen Ql Negative [facility] D Ag Ql (Bld) Positive [facility] ABO group Nom (Bld) A Normal [facility] Comment on above: Performed By: #### 3 4532-2 ####KALIN OSBORN ([id number])[facility] [place] [address] Blood group antibody screen Ql Negative Normal [facility] Comment on above: Performed By: #### 3 4532-2 ####KALIN OSBORN ([id number])[facility] [place] [address] D Ag Ql (Bld) Positive Normal [facility] Comment on above: Performed By: #### 3 4532-2 ####KALIN OSBORN ([id number])[facility] ([facility])[address] [place] [address] CBC W Auto Differential pane l (Bld)on 05-10-2025 Basophils (Bld) [#/Vol] 0.04 10*3/uL [facility] Basophils/100 WBC (Bld) 0.4 % 0.0 - 2.0 % [facility] Eosinophils (Bld) [#/Vol] 0.11 10*3/uL [facility] Eosinophils/100 WBC (Bld) 1.0 % 0.0 - 6.0 % [facility] Erythrocyte distribution width (RBC) [Ratio] 12.5 % 11.5 - 14.5 % [facility] Hematocrit (Bld) [Volume fraction] 36.3 % Low 41.0 - 52.0 % [facility] Hemoglobin (Bld) [Mass/Vol] 12.3 g/dL Low 13.5 - 17.5 g/dL [facility] Immature granulocytes (Bld) [#/Vol] 0.15 10*3/uL [facility] Immature granulocytes/100 WBC (Bld) 1.4 % High 0.0 - 0.9 % [facility] Comment on above: Immature Granulocyte Count (IG) includes promyelocytes, myelocytes and metamyelocytes but does not include bands. Percent differential counts (%) should be interpreted in the context of the absolute cell counts (cells/UL). Interpretation and review of laboratory results Abnormal [facility] Lymphocytes (Bld) [#/Vol] 1.00 10*3/uL [facility] Lymphocytes/100 WBC (Bld) 9.4 % 13.0 - 44.0 % [facility] MCH (RBC) [Entitic mass] 33.6 pg 26.0 - 34.0 pg [facility] MCHC (RBC) [Mass/Vol] 33.9 g/dL 32.0 - 36.0 g/dL [facility] MCV (RBC) [Entitic vol] 99 fL 80 - 100 fL [facility] Monocytes (Bld) [#/Vol] 1.04 10*3/uL High [facility] Monocytes/100 WBC (Bld) 9.7 % 2.0 - 10.0 % [facility] Neutrophils (Bld) [#/Vol] 8.34 10*3/uL High [facility] Comment on above: Percent differential counts (%) should be interpreted in the context of the absolute cell counts (cells/uL). Neutrophils/100 WBC (Bld) 78.1 % 40.0 - 80.0 % [facility] Nucleated RBC/100 WBC (Bld) [Ratio] 0.0 % [facility] Platelets (Bld) [#/Vol] 213 10*3/uL [facility] RBC (Bld) [#/Vol] 3.66 10*6/uL Low [facility] WBC (Bld) [#/Vol] 10.7 10*3/uL [facility] Basophils (Bld) [#/Vol] 0.04 x10*3/uL Normal 0.00-0.10 [facility] Comment on above: Performed By: #### 5 7021-8 #### KALIN OSBORN ([id number]) [facility]) [address] [place] [address] Basophils/100 WBC (Bld) 0.4 % Normal 0.0-2.0 [facility] Comment on above: Performed By: #### 5 7021-8 #### KALIN OSBORN ([id number]) [facility]) [address] [place] [address] 37762 Eosinophils (Bld) [#/Vol] 0.11 x10*3/uL Normal 0.00-0.40 [facility] Comment on above: Performed By: #### 5 7021-8 #### KALIN OSBORN ([id number]) [facility]) [address] [place] [address] 95704 Eosinophils/100 WBC (Bld) 1.0 % Normal 0.0-6.0 [facility] Comment on above: Performed By: #### 5 7021-8 #### KALIN OSBORN ([id number]) [facility]) [address] [place] [address] Erythrocyte distribution width (RBC) [Ratio] 12.5 % Normal 11.5-14.5 [facility] Comment on above: Performed By: #### 5 7021-8 #### KALIN OSBORN ([id number]) [facility]) [address] [place] [address] Hematocrit (Bld) [Volume fraction] 36.3 % Low 41.0-52.0 [facility] Comment on above: Performed By: #### 5 7021-8 #### KALIN OSBORN ([id number]) [facility]) [address] [place] [address] 75954 Hemoglobin (Bld) [Mass/Vol] 12.3 g/dL Low 13.5-17.5 [facility] Comment on above: Performed By: #### 5 7021-8 #### KALIN OSBORN ([id number]) [facility]) [address] [place] [address] 11434 Immature granulocytes (Bld) [#/Vol] 0.15 x10*3/uL Normal 0.00-0.50 [facility] Comment on above: Performed By: #### 5 7021-8 #### KALIN OSBORN ([id number]) [facility]) [address] [place] [address] 45492 Immature granulocytes/100 WBC (Bld) 1.4 % High 0.0-0.9 [facility] Comment on above: Result Comment: Steph ture Granulocyte Count (IG) includes promyelocytes, myelocytes and metamyelocytes but does not include bands. Percent differential counts (%) should be interpreted in the context of the absolute cell counts (cells/UL). Performed By: #### 5 7021-8 #### KALIN OSBORN ([id number]) [facility]) [address] [place] [address] Lymphocytes (Bld) [#/Vol] 1.00 x10*3/uL Normal 0.80-3.00 [facility] Comment on above: Performed By: #### 5 7021-8 #### KALIN OSBORN ([id number]) [facility]) [address] [place] [address] Lymphocytes/100 WBC (Bld) 9.4 % Normal 13.0-44.0 [facility] Comment on above: Performed By: #### 5 7021-8 #### KALIN OSBORN ([id number]) [facility]) [address] [place] [address] 64745 MCH (RBC) [Entitic mass] 33.6 pg Normal 26.0-34.0 [facility] Comment on above: Performed By: #### 5 7021-8 #### KALIN OSBORN ([id number]) [facility]) [address] [place] [address] 47767 MCHC (RBC) [Mass/Vol] 33.9 g/dL Normal 32.0-36.0 [facility] Comment on above: Performed By: #### 5 7021-8 #### KALIN OSBORN ([id number]) [facility]) [address] [place] [address] 98212 MCV (RBC) [Entitic vol] 99 fL Normal 80-100 [facility] Comment on above: Performed By: #### 5 7021-8 #### KALIN OSBORN ([id number]) [facility]) [address] [place] [address] 04149 Monocytes (Bld) [#/Vol] 1.04 x10*3/uL High 0.05-0.80 [facility] Comment on above: Performed By: #### 5 7021-8 #### KALIN OSBORN ([id number]) [facility]) [address] [place] [address] 12967 Monocytes/100 WBC (Bld) 9.7 % Normal 2.0-10.0 [facility] Comment on above: Performed By: #### 5 7021-8 #### KALIN OSBORN ([id number]) [facility]) [address] [place] [address] 12473 Neutrophils (Bld) [#/Vol] 8.34 x10*3/uL High 1.60-5.50 [facility] Comment on above: Result Comment: Perc ent differential counts (%) should be interpreted in the context of the absolute cell counts (cells/uL). Performed By: #### 5 7021-8 #### KALIN OSBORN ([id number]) [facility]) [address] [place] [address] 48198 Neutrophils/100 WBC (Bld) 78.1 % Normal 40.0-80.0 [facility] Comment on above: Performed By: #### 5 7021-8 #### KALIN OSBORN ([id number]) [facility]) [address] [place] [address] 91350 Nucleated RBC/100 WBC (Bld) [Ratio] 0.0 /100 WBCs Normal 0.0-0.0 [facility] Comment on above: Performed By: #### 5 7021-8 #### KALIN OSBORN ([id number]) [facility]) [address] [place] [address] 68435 Platelets (Bld) [#/Vol] 213 x10*3/uL Normal 150-450 [facility] Comment on above: Performed By: #### 5 7021-8 #### KALIN OSBORN ([id number]) [facility] [place] [address] RBC (Bld) [#/Vol] 3.66 x10*6/uL Low 4.50-5.90 [facility] Comment on above: Performed By: #### 5 7021-8 #### KALIN OSBORN ([id number]) [facility]) [address] [place] [address] 45814 WBC (Bld) [#/Vol] 10.7 x10*3/uL Normal 4.4-11.3 [facility] Comment on above: Performed By: #### 5 7021-8 #### KALIN MILLSLI ([id number]) [facility]) [address] [place] [address] CT 3D RECONSTRUCTIONon 05-10 CT 3D RECONSTRUCTION Interpreted By: Michelle Zambrano, STUDY: CT HEAD WO IV CONTRAST; CT FACIAL BONES WO IV CONTRAST; CT 3D RECONSTRUCTION; CT CERVICAL SPINE WO IV CONTRAST; 05/10/2025 3:01 pm; 05/10/2025 3:08 pm INDICATION: Signs/Symptoms:fall. COMPARISON: Head CT 11/15/2023 ACCESSION NUMBER(S): [id number]; [id number]; [id number]; [id number] ORDERING CLINICIAN: SANTIAGO MENENDEZ TECHNIQUE: Axial noncontrast images of the head. Axial noncontrast images of the facial bones with coronal and sagittal reconstructed images. Axial noncontrast images of the cervical spine with coronal and sagittal reconstructed images. 3D reconstructions of the facial bones were generated at a separate workstation and reviewed. FINDINGS: BRAIN PARENCHYMA: deep and periventricular white matter hypodensities are nonspecific, but favored to represent chronic small vessel ischemic changes. callaway-white matter interfaces are preserved. No mass effect or midline shift. HEMORRHAGE: There is trace extra-axial hemorrhage along the floor of the right anterior cranial fossa, measuring up to 2 mm in thickness. Trace hemorrhage also extends laterally around the right frontal lobe. VENTRICLES and EXTRA-AXIAL SPACES: The ventricles and sulci are within normal limits in size for brain volume. No abnormal extraaxial fluid collection. EXTRACRANIAL SOFT TISSUES: Within normal limits. CALVARIUM: Mildly buckled fracture of the floor of the right anterior cranial fossa/orbital roof. No destructive osseous lesion. Brain Injury (BIG) guidelines CT values: Skull fracture: Non-displaced SDH (subdural hematoma): <=4mm EDH (epidural hematoma): None detected IPH (intraparenchymal hemorrhage): None detected SAH (subarachnoid hemorrhage): Trace IVH (intraventricular hemorrhage): No Reference: Miguel Ángel Negron, Robyn RS, Lesley M, et al. The BIG (brain injury guidelines) project: defining the management of traumatic brain injury by acute care surgeons. J Trauma Acute Care Surg. 2014;76:115p948. FACIAL BONES: No acute facial bone fracture. SOFT TISSUES: Mild right periorbital hematoma and laceration. No radiopaque foreign body. PARANASAL SINUSES: No hemorrhage in the paranasal sinuses. MASTOIDS: Within normal limits. ORBITS: The globes, extraocular muscles and optic nerve sheath complexes are symmetric. No retrobulbar hematoma. ALIGNMENT: Normal. VERTEBRAE: No acute fracture. SPINAL CANAL: Diffuse degenerative disc changes, moderate to severe at C6-7. No critical spinal canal stenosis. PREVERTEBRAL SOFT TISSUES: No prevertebral soft tissue swelling. LUNG APICES: Imaged portion of the lung apices are within normal limits. OTHER FINDINGS: None. IMPRESSION: Acute fracture of the right orbital roof/floor of the anterior cranial fossa with mild adjacent extra-axial hemorrhage. The hemorrhage measures up to 2 mm in thickness along the floor of the anterior cranial fossa, which may represent a small subdural hematoma or layering subarachnoid hemorrhage. Trace hemorrhage extending laterally along the right frontal lobe is favored to be subarachnoid. No acute facial bone fracture. No acute fracture or traumatic subluxation of the cervical spine. MACRO: None Signed by: Michelle Zambrano 05/10/2025 4:33 PM Dictation workstation: [id number] [facility] CT CERVICAL SPINE WO IV CONT Jessica 05-10-2025 CT CERVICAL SPINE WO IV CONTRAST Interpreted By: Michelle Zambrano, STUDY: CT HEAD WO IV CONTRAST; CT FACIAL BONES WO IV CONTRAST; CT 3D RECONSTRUCTION; CT CERVICAL SPINE WO IV CONTRAST; 05/10/2025 3:01 pm; 05/10/2025 3:08 pm INDICATION: Signs/Symptoms:fall. COMPARISON: Head CT 11/15/2023 ACCESSION NUMBER(S): [id number]; [id number]; [id number]; [id number] ORDERING CLINICIAN: SANTIAGO MENENDEZ TECHNIQUE: Axial noncontrast images of the head. Axial noncontrast images of the facial bones with coronal and sagittal reconstructed images. Axial noncontrast images of the cervical spine with coronal and sagittal reconstructed images. 3D reconstructions of the facial bones were generated at a separate workstation and reviewed. FINDINGS: BRAIN PARENCHYMA: deep and periventricular white matter hypodensities are nonspecific, but favored to represent chronic small vessel ischemic changes. callaway-white matter interfaces are preserved. No mass effect or midline shift. HEMORRHAGE: There is trace extra-axial hemorrhage along the floor of the right anterior cranial fossa, measuring up to 2 mm in thickness. Trace hemorrhage also extends laterally around the right frontal lobe. VENTRICLES and EXTRA-AXIAL SPACES: The ventricles and sulci are within normal limits in size for brain volume. No abnormal extraaxial fluid collection. EXTRACRANIAL SOFT TISSUES: Within normal limits. CALVARIUM: Mildly buckled fracture of the floor of the right anterior cranial fossa/orbital roof. No destructive osseous lesion. Brain Injury (BIG) guidelines CT values: Skull fracture: Non-displaced SDH (subdural hematoma): <=4mm EDH (epidural hematoma): None detected IPH (intraparenchymal hemorrhage): None detected SAH (subarachnoid hemorrhage): Trace IVH (intraventricular hemorrhage): No Reference: Miguel Ángel Negron, Robyn RS, Lesley M, et al. The BIG (brain injury guidelines) project: defining the management of traumatic brain injury by acute care surgeons. J Trauma Acute Care Surg. 2014;76:928z023. FACIAL BONES: No acute facial bone fracture. SOFT TISSUES: Mild right periorbital hematoma and laceration. No radiopaque foreign body. PARANASAL SINUSES: No hemorrhage in the paranasal sinuses. MASTOIDS: Within normal limits. ORBITS: The globes, extraocular muscles and optic nerve sheath complexes are symmetric. No retrobulbar hematoma. ALIGNMENT: Normal. VERTEBRAE: No acute fracture. SPINAL CANAL: Diffuse degenerative disc changes, moderate to severe at C6-7. No critical spinal canal stenosis. PREVERTEBRAL SOFT TISSUES: No prevertebral soft tissue swelling. LUNG APICES: Imaged portion of the lung apices are within normal limits. OTHER FINDINGS: None. IMPRESSION: Acute fracture of the right orbital roof/floor of the anterior cranial fossa with mild adjacent extra-axial hemorrhage. The hemorrhage measures up to 2 mm in thickness along the floor of the anterior cranial fossa, which may represent a small subdural hematoma or layering subarachnoid hemorrhage. Trace hemorrhage extending laterally along the right frontal lobe is favored to be subarachnoid. No acute facial bone fracture. No acute fracture or traumatic subluxation of the cervical spine. MACRO: None Signed by: Michelle Zambrano 05/10/2025 4:33 PM Dictation workstation: [id number] [facility] CT CHEST ABDOMEN PELVIS W IV CONTRASTon 05-10-2025 CT CHEST ABDOMEN PELVIS W IV CONTRAST Interpreted By: Michelle Zambrano, STUDY: CT CHEST ABDOMEN PELVIS W IV CONTRAST; 05/10/2025 3:05 pm INDICATION: Signs/Symptoms:fall. COMPARISON: None. ACCESSION NUMBER(S): [id number] ORDERING CLINICIAN: SANTIAGO MENENDEZ TECHNIQUE: Axial CT images of the chest, abdomen and pelvis with coronal and sagittal reconstructed images obtained after intravenous administration of contrast. FINDINGS: CHEST: VESSELS: No aortic aneurysm. No evidence of acute traumatic aortic injury, given limitations of non gated CT. HEART: Normal size. Moderate to severe coronary artery calcifications. No pericardial effusion. MEDIASTINUM AND NATALIA: No pathologically enlarged thoracic lymph nodes. No mediastinal hematoma. No pneumomediastinum. LUNG, PLEURA, LARGE AIRWAYS: No pleural effusion or pneumothorax. No pulmonary consolidation or suspicious pulmonary nodule. CHEST WALL AND LOWER NECK: Within normal limits. No acute osseous abnormality. The reverse left total shoulder arthroplasty. Mild degenerative changes of the thoracic spine. ABDOMEN: BONES: Acute nondisplaced fracture of the right superior pubic ramus extending into the anterior acetabular wall (annotated on series 2). Acute mildly comminuted and mildly displaced fracture of the right inferior pubic ramus. Acute nondisplaced fracture of the left superior pubic ramus which appears to extend to the anterior acetabulum (annotated on series 9). Acute nondisplaced fracture of the left inferior pubic ramus. For acute buckle fracture of the right S2 neural foramen (annotated on series 9). Very mild hematoma in the bilateral pelvic sidewalls, without evidence of active hemorrhage. Severe right hip osteoarthrosis with small right hip joint effusion. Left total hip arthroplasty noted. Severe degenerative disc changes in the lumbar spine. ABDOMINAL WALL: Within normal limits. LIVER: Within normal limits. BILE DUCTS: No biliary dilatation. GALLBLADDER: No calcified gallstones. No pericholecystic inflammatory changes. PANCREAS: Within normal limits. SPLEEN: Fluid density lesions in the spleen measuring up to 1 cm, presumably a small cyst. ADRENALS: Within normal limits. KIDNEYS AND URETERS: Symmetric renal enhancement. No hydronephrosis or perinephric fluid collection. No hydroureter. VESSELS: 4.7 x 3.3 cm infrarenal aortic aneurysm with eccentric mural thrombus. 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 RETROPERITONEUM: No pathologically enlarged lymph nodes. PELVIS: REPRODUCTIVE ORGANS: No pelvic mass or significant free pelvic fluid. BLADDER: Within normal limits. BOWEL: No dilated bowel. Colonic diverticulosis without acute diverticulitis. The appendix is not seen. PERITONEUM: No ascites or free air, no fluid collection. IMPRESSION: No acute cardiopulmonary process. No acute intra-abdominal or intrapelvic abnormality. Acute bilateral pubic rami fractures, as detailed above. The right superior ramus fracture involves the anterior acetabular wall. The left superior pubic ramus fracture appears to involve the medial acetabular wall. Acute nondisplaced fracture of the right sacral ala. 4.7 x 3.3 cm infrarenal aortic aneurysm. 1.9 cm left common iliac artery aneurysm and 1.2 cm right internal iliac artery aneurysm MACRO: None Signed by: Michelle Zambrano 05/10/2025 4:52 PM Dictation workstation: [id number] [facility] CT Chest and Abdomen and Pel vis W contrast Sagar 05-10-2025 No acute cardiopulmonary process. No acute intra-abdominal or intrapelvic abnormality. Acute bilateral pubic rami fractures, as detailed above. The right superior ramus fracture involves the anterior acetabular wall. The left superior pubic ramus fracture appears to involve the medial acetabular wall. Acute nondisplaced fracture of the right sacral ala. 4.7 x 3.3 cm infrarenal aortic aneurysm. 1.9 cm left common iliac artery aneurysm and 1.2 cm right internal iliac artery aneurysm MACRO: None Signed by: Michelle Zambrano 05/10/2025 4:52 PM Dictation workstation: [id number] Interpreted By: Michelle Zambrano, STUDY: CT CHEST ABDOMEN PELVIS W IV CONTRAST; 05/10/2025 3:05 pm INDICATION: Signs/Symptoms:fall. COMPARISON: None. ACCESSION NUMBER(S): [id number] ORDERING CLINICIAN: SANTIAGO MENENDEZ TECHNIQUE: Axial CT images of the chest, abdomen and pelvis with coronal and sagittal reconstructed images obtained after intravenous administration of contrast. FINDINGS: CHEST: VESSELS: No aortic aneurysm. No evidence of acute traumatic aortic injury, given limitations of non gated CT. HEART: Normal size. Moderate to severe coronary artery calcifications. No pericardial effusion. MEDIASTINUM AND NATALIA: No pathologically enlarged thoracic lymph nodes. No mediastinal hematoma. No pneumomediastinum. LUNG, PLEURA, LARGE AIRWAYS: No pleural effusion or pneumothorax. No pulmonary consolidation or suspicious pulmonary nodule. CHEST WALL AND LOWER NECK: Within normal limits. No acute osseous abnormality. The reverse left total shoulder arthroplasty. Mild degenerative changes of the thoracic spine. ABDOMEN: BONES: Acute nondisplaced fracture of the right superior pubic ramus extending into the anterior acetabular wall (annotated on series 2). Acute mildly comminuted and mildly displaced fracture of the right inferior pubic ramus. Acute nondisplaced fracture of the left superior pubic ramus which appears to extend to the anterior acetabulum (annotated on series 9). Acute nondisplaced fracture of the left inferior pubic ramus. For acute buckle fracture of the right S2 neural foramen (annotated on series 9). Very mild hematoma in the bilateral pelvic sidewalls, without evidence of active hemorrhage. Severe right hip osteoarthrosis with small right hip joint effusion. Left total hip arthroplasty noted. Severe degenerative disc changes in the lumbar spine. ABDOMINAL WALL: Within normal limits. LIVER: Within normal limits. BILE DUCTS: No biliary dilatation. GALLBLADDER: No calcified gallstones. No pericholecystic inflammatory changes. PANCREAS: Within normal limits. SPLEEN: Fluid density lesions in the spleen measuring up to 1 cm, presumably a small cyst. ADRENALS: Within normal limits. KIDNEYS AND URETERS: Symmetric renal enhancement. No hydronephrosis or perinephric fluid collection. No hydroureter. VESSELS: 4.7 x 3.3 cm infrarenal aortic aneurysm with eccentric mural thrombus. 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 RETROPERITONEUM: No pathologically enlarged lymph nodes. PELVIS: REPRODUCTIVE ORGANS: No pelvic mass or significant free pelvic fluid. BLADDER: Within normal limits. BOWEL: No dilated bowel. Colonic diverticulosis without acute diverticulitis. The appendix is not seen. PERITONEUM: No ascites or free air, no fluid collection. [facility] Michelle Zambrano MD - 05/10/2025 Interpreted By: Michelle Zambrano, STUDY: CT CHEST ABDOMEN PELVIS W IV CONTRAST; 05/10/2025 3:05 pm INDICATION: Signs/Symptoms:fall. COMPARISON: None. ACCESSION NUMBER(S): [id number] ORDERING CLINICIAN: SANTIAGO MENENDEZ TECHNIQUE: Axial CT images of the chest, abdomen and pelvis with coronal and sagittal reconstructed images obtained after intravenous administration of contrast. FINDINGS: CHEST: VESSELS: No aortic aneurysm. No evidence of acute traumatic aortic injury, given limitations of non gated CT. HEART: Normal size. Moderate to severe coronary artery calcifications. No pericardial effusion. MEDIASTINUM AND NATALIA: No pathologically enlarged thoracic lymph nodes. No mediastinal hematoma. No pneumomediastinum. LUNG, PLEURA, LARGE AIRWAYS: No pleural effusion or pneumothorax. No pulmonary consolidation or suspicious pulmonary nodule. CHEST WALL AND LOWER NECK: Within normal limits. No acute osseous abnormality. The reverse left total shoulder arthroplasty. Mild degenerative changes of the thoracic spine. ABDOMEN: BONES: Acute nondisplaced fracture of the right superior pubic ramus extending into the anterior acetabular wall (annotated on series 2). Acute mildly comminuted and mildly displaced fracture of the right inferior pubic ramus. Acute nondisplaced fracture of the left superior pubic ramus which appears to extend to the anterior acetabulum (annotated on series 9). Acute nondisplaced fracture of the left inferior pubic ramus. For acute buckle fracture of the right S2 neural foramen (annotated on series 9). Very mild hematoma in the bilateral pelvic sidewalls, without evidence of active hemorrhage. Severe right hip osteoarthrosis with small right hip joint effusion. Left total hip arthroplasty noted. Severe degenerative disc changes in the lumbar spine. ABDOMINAL WALL: Within normal limits. LIVER: Within normal limits. BILE DUCTS: No biliary dilatation. GALLBLADDER: No calcified gallstones. No pericholecystic inflammatory changes. PANCREAS: Within normal limits. SPLEEN: Fluid density lesions in the spleen measuring up to 1 cm, presumably a small cyst. ADRENALS: Within normal limits. KIDNEYS AND URETERS: Symmetric renal enhancement. No hydronephrosis or perinephric fluid collection. No hydroureter. VESSELS: 4.7 x 3.3 cm infrarenal aortic aneurysm with eccentric mural thrombus. 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 RETROPERITONEUM: No pathologically enlarged lymph nodes. PELVIS: REPRODUCTIVE ORGANS: No pelvic mass or significant free pelvic fluid. BLADDER: Within normal limits. BOWEL: No dilated bowel. Colonic diverticulosis without acute diverticulitis. The appendix is not seen. PERITONEUM: No ascites or free air, no fluid collection. IMPRESSION: No acute cardiopulmonary process. No acute intra-abdominal or intrapelvic abnormality. Acute bilateral pubic rami fractures, as detailed above. The right superior ramus fracture involves the anterior acetabular wall. The left superior pubic ramus fracture appears to involve the medial acetabular wall. Acute nondisplaced fracture of the right sacral ala. 4.7 x 3.3 cm infrarenal aortic aneurysm. 1.9 cm left common iliac artery aneurysm and 1.2 cm right internal iliac artery aneurysm MACRO: None Signed by: Michelle Zambrano 05/10/2025 4:52 PM Dictation workstation: [id number] [facility] Work Phone: [facility] Work Phone: Radiology Study observation (narrative) [facility] Work Phone: CT FACIAL BONES WO IV CONTRA STon 05-10-2025 CT FACIAL BONES WO IV CONTRAST Interpreted By: Michelle Zambrano, STUDY: CT HEAD WO IV CONTRAST; CT FACIAL BONES WO IV CONTRAST; CT 3D RECONSTRUCTION; CT CERVICAL SPINE WO IV CONTRAST; 05/10/2025 3:01 pm; 05/10/2025 3:08 pm INDICATION: Signs/Symptoms:fall. COMPARISON: Head CT 11/15/2023 ACCESSION NUMBER(S): [id number]; [id number]; [id number]; [id number] ORDERING CLINICIAN: SANTIAGO MENENDEZ TECHNIQUE: Axial noncontrast images of the head. Axial noncontrast images of the facial bones with coronal and sagittal reconstructed images. Axial noncontrast images of the cervical spine with coronal and sagittal reconstructed images. 3D reconstructions of the facial bones were generated at a separate workstation and reviewed. FINDINGS: BRAIN PARENCHYMA: deep and periventricular white matter hypodensities are nonspecific, but favored to represent chronic small vessel ischemic changes. callaway-white matter interfaces are preserved. No mass effect or midline shift. HEMORRHAGE: There is trace extra-axial hemorrhage along the floor of the right anterior cranial fossa, measuring up to 2 mm in thickness. Trace hemorrhage also extends laterally around the right frontal lobe. VENTRICLES and EXTRA-AXIAL SPACES: The ventricles and sulci are within normal limits in size for brain volume. No abnormal extraaxial fluid collection. EXTRACRANIAL SOFT TISSUES: Within normal limits. CALVARIUM: Mildly buckled fracture of the floor of the right anterior cranial fossa/orbital roof. No destructive osseous lesion. Brain Injury (BIG) guidelines CT values: Skull fracture: Non-displaced SDH (subdural hematoma): <=4mm EDH (epidural hematoma): None detected IPH (intraparenchymal hemorrhage): None detected SAH (subarachnoid hemorrhage): Trace IVH (intraventricular hemorrhage): No Reference: Miguel Ángel Nergon, Robyn RS, Lesley M, et al. The BIG (brain injury guidelines) project: defining the management of traumatic brain injury by acute care surgeons. J Trauma Acute Care Surg. 2014;76:757t291. FACIAL BONES: No acute facial bone fracture. SOFT TISSUES: Mild right periorbital hematoma and laceration. No radiopaque foreign body. PARANASAL SINUSES: No hemorrhage in the paranasal sinuses. MASTOIDS: Within normal limits. ORBITS: The globes, extraocular muscles and optic nerve sheath complexes are symmetric. No retrobulbar hematoma. ALIGNMENT: Normal. VERTEBRAE: No acute fracture. SPINAL CANAL: Diffuse degenerative disc changes, moderate to severe at C6-7. No critical spinal canal stenosis. PREVERTEBRAL SOFT TISSUES: No prevertebral soft tissue swelling. LUNG APICES: Imaged portion of the lung apices are within normal limits. OTHER FINDINGS: None. IMPRESSION: Acute fracture of the right orbital roof/floor of the anterior cranial fossa with mild adjacent extra-axial hemorrhage. The hemorrhage measures up to 2 mm in thickness along the floor of the anterior cranial fossa, which may represent a small subdural hematoma or layering subarachnoid hemorrhage. Trace hemorrhage extending laterally along the right frontal lobe is favored to be subarachnoid. No acute facial bone fracture. No acute fracture or traumatic subluxation of the cervical spine. MACRO: None Signed by: Michelle Zambrano 05/10/2025 4:33 PM Dictation workstation: [id number] [facility] CT HEAD WO IV CONTRASTon CT HEAD WO IV CONTRAST Interpreted By: Wanda Montalvo and Omar Mahmoud STUDY: CT HEAD WO IV CONTRAST; 05/10/2025 11:27 pm INDICATION: Signs/Symptoms:Trauma , intracranial bleeding. Stability scan. COMPARISON: CT head without IV contrast 05/10/2025 3:03 p.m.. ACCESSION NUMBER(S): [id number] ORDERING CLINICIAN: CARRI GREER TECHNIQUE: Noncontrast axial CT scan of head was performed. Angled reformats in brain and bone windows were generated. The images were reviewed in bone, brain, blood and soft tissue windows. FINDINGS: CSF Spaces: The ventricles, sulci and basal cisterns are within normal limits. Similar size and appearance of extra-axial hemorrhage along the anterolateral right frontal lobe (series 204, image 49) currently measuring 3 mm in thickness (series 206, image 39), previously measuring 2 mm. Parenchyma: There is mild periventricular and subcortical white matter hypodensities, similar as compared to prior and likely represents sequela of chronic microvascular ischemic changes. No new loss of callaway-white differentiation. There is no mass effect or midline shift. Several linear foci of hyperattenuation noted along the sulci right parietal lobe suspicious for subarachnoid hemorrhage. A subtle hyperdense focus is redemonstrated along the left frontal lobe as seen on axial image 60 of series 204. This is suspicious for small focus of extra-axial hemorrhage. No new hemorrhage is identified. Calvarium: Redemonstrated minimally displaced acute fracture of the right orbital roof (series 206 image 40). Soft tissue laceration right frontal scalp extending to the zygoma. Paranasal sinuses and mastoids: Visualized paranasal sinuses and mastoids are clear. Atherosclerotic calcification of the carotid siphons and vertebral arteries IMPRESSION: Redemonstration of minimally displaced acute fracture of the right orbital roof with stable extra-axial hemorrhage along the anterolateral right frontal lobe. Additional linear hyperdense foci along the sulci right parietal lobe suspicious for subarachnoid hemorrhage. No new hemorrhage is identified. Question subtle hyperdense focus along the left frontal lobe opacity described above may relate to small focus of extra-axial hemorrhage. Attention on continued follow-up is advised. I personally reviewed the images/study and I agree with the findings as stated by Gregory Dueñas MD (PGY-[id number]). This study was interpreted at [place], [place]. MACRO: None Signed by: Wanda Montalvo 05/11/2025 12:03 AM Dictation workstation: [id number] Normal [facility] CT HEAD WO IV CONTRAST Interpreted By: Michelle Zambrano, STUDY: CT HEAD WO IV CONTRAST; CT FACIAL BONES WO IV CONTRAST; CT 3D RECONSTRUCTION; CT CERVICAL SPINE WO IV CONTRAST; 05/10/2025 3:01 pm; 05/10/2025 3:08 pm INDICATION: Signs/Symptoms:fall. COMPARISON: Head CT 11/15/2023 ACCESSION NUMBER(S): [id number]; [id number]; [id number]; [id number] ORDERING CLINICIAN: SANTIAGO MENENDEZ TECHNIQUE: Axial noncontrast images of the head. Axial noncontrast images of the facial bones with coronal and sagittal reconstructed images. Axial noncontrast images of the cervical spine with coronal and sagittal reconstructed images. 3D reconstructions of the facial bones were generated at a separate workstation and reviewed. FINDINGS: BRAIN PARENCHYMA: deep and periventricular white matter hypodensities are nonspecific, but favored to represent chronic small vessel ischemic changes. callaway-white matter interfaces are preserved. No mass effect or midline shift. HEMORRHAGE: There is trace extra-axial hemorrhage along the floor of the right anterior cranial fossa, measuring up to 2 mm in thickness. Trace hemorrhage also extends laterally around the right frontal lobe. VENTRICLES and EXTRA-AXIAL SPACES: The ventricles and sulci are within normal limits in size for brain volume. No abnormal extraaxial fluid collection. EXTRACRANIAL SOFT TISSUES: Within normal limits. CALVARIUM: Mildly buckled fracture of the floor of the right anterior cranial fossa/orbital roof. No destructive osseous lesion. Brain Injury (BIG) guidelines CT values: Skull fracture: Non-displaced SDH (subdural hematoma): <=4mm EDH (epidural hematoma): None detected IPH (intraparenchymal hemorrhage): None detected SAH (subarachnoid hemorrhage): Trace IVH (intraventricular hemorrhage): No Reference: Robyn Gallegos, Lesley M, et al. The BIG (brain injury guidelines) project: defining the management of traumatic brain injury by acute care surgeons. J Trauma Acute Care Surg. 2014;76:749q441. FACIAL BONES: No acute facial bone fracture. SOFT TISSUES: Mild right periorbital hematoma and laceration. No radiopaque foreign body. PARANASAL SINUSES: No hemorrhage in the paranasal sinuses. MASTOIDS: Within normal limits. ORBITS: The globes, extraocular muscles and optic nerve sheath complexes are symmetric. No retrobulbar hematoma. ALIGNMENT: Normal. VERTEBRAE: No acute fracture. SPINAL CANAL: Diffuse degenerative disc changes, moderate to severe at C6-7. No critical spinal canal stenosis. PREVERTEBRAL SOFT TISSUES: No prevertebral soft tissue swelling. LUNG APICES: Imaged portion of the lung apices are within normal limits. OTHER FINDINGS: None. IMPRESSION: Acute fracture of the right orbital roof/floor of the anterior cranial fossa with mild adjacent extra-axial hemorrhage. The hemorrhage measures up to 2 mm in thickness along the floor of the anterior cranial fossa, which may represent a small subdural hematoma or layering subarachnoid hemorrhage. Trace hemorrhage extending laterally along the right frontal lobe is favored to be subarachnoid. No acute facial bone fracture. No acute fracture or traumatic subluxation of the cervical spine. MACRO: None Signed by: Michelle Zambrano 05/10/2025 4:33 PM Dictation workstation: [id number] [facility] CT Head WO contraston 2024 Radiology Study observation (narrative) [facility] Work Phone: CT LUMBAR SPINE RETROSPECTIV E RECONSTRUCTION PROTOCOLon 05-10-2025 CT LUMBAR SPINE RETROSPECTIVE RECONSTRUCTION PROTOCOL STUDY: CT Thoracic Spine, and Lumbar Spine without IV Contrast; 05/10/2025 at 10:38 PM. INDICATION: Trauma. COMPARISON: CT CAP 05/10/2025. ACCESSION NUMBER(S): [id number], [id number] ORDERING CLINICIAN: ELIAN ROTHMAN TECHNIQUE: CT of the thoracic spine, and lumbar spine was performed without intravenous or intrathecal contrast. Sagittal and coronal reconstructions were generated. Automated mA/kV exposure control was utilized and patient examination was performed in strict accordance with principles of ALARA. FINDINGS: Thoracic spine: Mild scoliosis. There is no fracture or traumatic subluxation. The vertebral body heights are maintained. Mild multilevel disc space narrowing with small endplate osteophytes. No significant central canal stenosis is demonstrated. The paravertebral soft tissues are within normal limits. The visualized chest and abdomen are unremarkable. Lumbar spine: Prominent scoliosis. There is no lumbar fracture or traumatic subluxation. The vertebral body heights are maintained. Diffuse disc space narrowing with large endplate osteophytes. Large calcifications posterior to the T12-L1 disc are most suggestive of a calcified herniated disc although potentially could be related to the underlying osteophytes. A small quantity of gas posterior to the left side of the L3 vertebral body suggests there is an extruded herniated disc fragment extending superiorly from L3-4. Similarly, a small quantity of gas tracks with the S1 nerve root on the left, presumably a small herniated disc fragment. Moderate multilevel bony encroachment upon the central spinal canal. Moderate/marked multilevel bony encroachment upon the neural foramina. Limited sacral visualization. Irregularity of the right sacral wing inferiorly, likely a nondisplaced fracture. The paravertebral soft tissues are within normal limits. There is an abdominal aortic aneurysm. IMPRESSION: 1.No acute bony abnormality in the thoracic spine. Mild scoliosis. Mild multilevel disc space narrowing with small endplate osteophytes. 2.No acute bony abnormality in the lumbar spine. Prominent scoliosis. Diffuse disc space narrowing with large endplate osteophytes. Large calcifications posterior to the T12-L1 disc are most suggestive of a calcified herniated disc although potentially could be related to the underlying osteophytes. A small quantity of gas posterior to the left side of the L3 vertebral body suggests there is an extruded herniated disc fragment extending superiorly from L3-4. Similarly, a small quantity of gas tracks with the S1 nerve root on the left, presumably a small herniated disc fragment extending inferiorly from L5-S1. Moderate multilevel bony encroachment upon the central spinal canal. Moderate/marked multilevel bony encroachment upon the neural foramina. 3.Limited sacral visualization. Irregularity of the right sacral wing inferiorly, likely a nondisplaced fracture. 4.Abdominal aortic aneurysm. 5.If additional imaging evaluation is clinically warranted, consider MRI. Signed by Joey Paz MD [facility] CT THORACIC SPINE RETROSPECT DERRELL RECONSTRUCTION PROTOCOLon 05-10-2025 CT THORACIC SPINE RETROSPECTIVE RECONSTRUCTION PROTOCOL STUDY: CT Thoracic Spine, and Lumbar Spine without IV Contrast; 05/10/2025 at 10:38 PM. INDICATION: Trauma. COMPARISON: CT CAP 05/10/2025. ACCESSION NUMBER(S): [id number], [id number] ORDERING CLINICIAN: ELIAN ROTHMAN TECHNIQUE: CT of the thoracic spine, and lumbar spine was performed without intravenous or intrathecal contrast. Sagittal and coronal reconstructions were generated. Automated mA/kV exposure control was utilized and patient examination was performed in strict accordance with principles of ALARA. FINDINGS: Thoracic spine: Mild scoliosis. There is no fracture or traumatic subluxation. The vertebral body heights are maintained. Mild multilevel disc space narrowing with small endplate osteophytes. No significant central canal stenosis is demonstrated. The paravertebral soft tissues are within normal limits. The visualized chest and abdomen are unremarkable. Lumbar spine: Prominent scoliosis. There is no lumbar fracture or traumatic subluxation. The vertebral body heights are maintained. Diffuse disc space narrowing with large endplate osteophytes. Large calcifications posterior to the T12-L1 disc are most suggestive of a calcified herniated disc although potentially could be related to the underlying osteophytes. A small quantity of gas posterior to the left side of the L3 vertebral body suggests there is an extruded herniated disc fragment extending superiorly from L3-4. Similarly, a small quantity of gas tracks with the S1 nerve root on the left, presumably a small herniated disc fragment. Moderate multilevel bony encroachment upon the central spinal canal. Moderate/marked multilevel bony encroachment upon the neural foramina. Limited sacral visualization. Irregularity of the right sacral wing inferiorly, likely a nondisplaced fracture. The paravertebral soft tissues are within normal limits. There is an abdominal aortic aneurysm. IMPRESSION: 1.No acute bony abnormality in the thoracic spine. Mild scoliosis. Mild multilevel disc space narrowing with small endplate osteophytes. 2.No acute bony abnormality in the lumbar spine. Prominent scoliosis. Diffuse disc space narrowing with large endplate osteophytes. Large calcifications posterior to the T12-L1 disc are most suggestive of a calcified herniated disc although potentially could be related to the underlying osteophytes. A small quantity of gas posterior to the left side of the L3 vertebral body suggests there is an extruded herniated disc fragment extending superiorly from L3-4. Similarly, a small quantity of gas tracks with the S1 nerve root on the left, presumably a small herniated disc fragment extending inferiorly from L5-S1. Moderate multilevel bony encroachment upon the central spinal canal. Moderate/marked multilevel bony encroachment upon the neural foramina. 3.Limited sacral visualization. Irregularity of the right sacral wing inferiorly, likely a nondisplaced fracture. 4.Abdominal aortic aneurysm. 5.If additional imaging evaluation is clinically warranted, consider MRI. Signed by Joey Paz MD [facility] Coagulation surface inducedo n 05-10-2025 aPTT Coag (PPP) [Time] 29 s Normal 26-36 [facility] Comment on above: Order Comment: The A PTT is no longer used for monitoring Unfractionated Heparin Therapy. For monitoring Heparin Therapy, use the Heparin Assay. Performed By: #### 1 [id number] #### KALIN OSBORN ([id number]) [facility] [address] [place] [address] Coagulation tissue factor in ducedon 05-10-2025 PT Coag (PPP) [Time] 11.8 s Normal 9.8-12.4 [facility] Comment on above: Performed By: #### 5 [id number] #### KALIN OSBORN ([id number]) [facility]) [address] [place] [id number] ECG 12-LEADon 05-10-2025 ECG 12-LEAD Ventricular Rate 80 Atrial Rate 80 P-R Interval 176 QRS Duration 98 Q-T Interval 376 QTC Calculation(Bazett) 433 P [place] 56 R [place] -21 T [place] 55 QRS Count 14 Q Onset 210 P Onset 122 P Offset 180 T Offset 398 QTC Fredericia 414 Diagnosis Normal sinus rhythm Normal ECG When compared with ECG of 07-DEC-2023 09:54, Premature atrial complexes are no longer Present See ED provider note for full interpretation and clinical correlation Confirmed by Brandee Hawkins ([id number]) on 05/11/2025 1:16:43 PM Normal [facility] Laceration Repairon 05-10-20 Brandee Hawkins PA-C 05/10/2025 7:07 PM Laceration Repair Performed by: Brandee Hawkins PA-C Authorized by: Santiago Menendez DO Consent: Consent obtained: Verbal Consent given by: Patient Risks, benefits, and alternatives were discussed: yes Risks discussed: Infection, need for additional repair, nerve damage, poor wound healing, poor cosmetic result, pain, retained foreign body, tendon damage and vascular damage Alternatives discussed: No treatment, delayed treatment, observation and referral [place] protocol: Procedure explained and questions answered to patient or proxy's satisfaction: yes Relevant documents present and verified: yes Patient identity confirmed: Verbally with patient and arm band Anesthesia: Anesthesia method: Local infiltration Local anesthetic: Lidocaine 1% WITH epi Laceration details: Location: Face Face location: R eyebrow Length (cm): 4 Depth (mm): 3 Pre-procedure details: Preparation: Patient was prepped and draped in usual sterile fashion Exploration: Limited defect created (wound extended): no Hemostasis achieved with: Direct pressure and epinephrine Wound exploration: wound explored through full range of motion and entire depth of wound visualized Wound extent: areolar tissue not violated, fascia not violated, no foreign body, no signs of injury, no nerve damage, no tendon damage and no vascular damage Contaminated: no Treatment: Area cleansed with: Povidone-iodine Amount of cleaning: Standard Irrigation solution: Sterile saline Irrigation volume: 15 Visualized foreign bodies/material removed: no Debridement: None Undermining: None Scar revision: no Skin repair: Repair method: Sutures Suture size: 6-0 Suture material: Prolene Suture technique: Simple interrupted Number of sutures: 11 Approximation: Approximation: Close Repair type: Repair type: Simple Post-procedure details: Dressing: Antibiotic ointment Procedure completion: Tolerated well, no immediate complications [facility] Work Phone: [facility] Work Phone: No Panel Informationon 05-10 Acute fracture of th e right orbital roof/floor of the anterior cranial fossa with mild adjacent extra-axial hemorrhage. The hemorrhage measures up to 2 mm in thickness along the floor of the anterior cranial fossa, which may represent a small subdural hematoma or layering subarachnoid hemorrhage. Trace hemorrhage extending laterally along the right frontal lobe is favored to be subarachnoid. No acute facial bone fracture. No acute fracture or traumatic subluxation of the cervical spine. MACRO: None Signed by: Michelle Zambrano 05/10/2025 4:33 PM Dictation workstation: [id number] [facility] Interpreted By: Michelle Zambrano, STUDY: CT HEAD WO IV CONTRAST; CT FACIAL BONES WO IV CONTRAST; CT 3D RECONSTRUCTION; CT CERVICAL SPINE WO IV CONTRAST; 05/10/2025 3:01 pm; 05/10/2025 3:08 pm INDICATION: Signs/Symptoms:fall. COMPARISON: Head CT 11/15/2023 ACCESSION NUMBER(S): [id number]; [id number]; [id number]; [id number] ORDERING CLINICIAN: SANTIAGO MENENDEZ TECHNIQUE: Axial noncontrast images of the head. Axial noncontrast images of the facial bones with coronal and sagittal reconstructed images. Axial noncontrast images of the cervical spine with coronal and sagittal reconstructed images. 3D reconstructions of the facial bones were generated at a separate workstation and reviewed. FINDINGS: BRAIN PARENCHYMA: deep and periventricular white matter hypodensities are nonspecific, but favored to represent chronic small vessel ischemic changes. callaway-white matter interfaces are preserved. No mass effect or midline shift. HEMORRHAGE: There is trace extra-axial hemorrhage along the floor of the right anterior cranial fossa, measuring up to 2 mm in thickness. Trace hemorrhage also extends laterally around the right frontal lobe. VENTRICLES and EXTRA-AXIAL SPACES: The ventricles and sulci are within normal limits in size for brain volume. No abnormal extraaxial fluid collection. EXTRACRANIAL SOFT TISSUES: Within normal limits. CALVARIUM: Mildly buckled fracture of the floor of the right anterior cranial fossa/orbital roof. No destructive osseous lesion. Brain Injury (BIG) guidelines CT values: Skull fracture: Non-displaced SDH (subdural hematoma): <=4mm EDH (epidural hematoma): None detected IPH (intraparenchymal hemorrhage): None detected SAH (subarachnoid hemorrhage): Trace IVH (intraventricular hemorrhage): No Reference: Miguel Ángel B, Robyn RS, Lesley M, et al. The BIG (brain injury guidelines) project: defining the management of traumatic brain injury by acute care surgeons. J Trauma Acute Care Surg. 2014;76:180n568. FACIAL BONES: No acute facial bone fracture. SOFT TISSUES: Mild right periorbital hematoma and laceration. No radiopaque foreign body. PARANASAL SINUSES: No hemorrhage in the paranasal sinuses. MASTOIDS: Within normal limits. ORBITS: The globes, extraocular muscles and optic nerve sheath complexes are symmetric. No retrobulbar hematoma. ALIGNMENT: Normal. VERTEBRAE: No acute fracture. SPINAL CANAL: Diffuse degenerative disc changes, moderate to severe at C6-7. No critical spinal canal stenosis. PREVERTEBRAL SOFT TISSUES: No prevertebral soft tissue swelling. LUNG APICES: Imaged portion of the lung apices are within normal limits. OTHER FINDINGS: None. MMODAL Michelle Zambrano MD - 05/10/2025 Interpreted By: Michelle Zambrano, STUDY: CT HEAD WO IV CONTRAST; CT FACIAL BONES WO IV CONTRAST; CT 3D RECONSTRUCTION; CT CERVICAL SPINE WO IV CONTRAST; 05/10/2025 3:01 pm; 05/10/2025 3:08 pm INDICATION: Signs/Symptoms:fall. COMPARISON: Head CT 11/15/2023 ACCESSION NUMBER(S): [id number]; [id number]; [id number]; [id number] ORDERING CLINICIAN: SANTIAGO MENENDEZ TECHNIQUE: Axial noncontrast images of the head. Axial noncontrast images of the facial bones with coronal and sagittal reconstructed images. Axial noncontrast images of the cervical spine with coronal and sagittal reconstructed images. 3D reconstructions of the facial bones were generated at a separate workstation and reviewed. FINDINGS: BRAIN PARENCHYMA: deep and periventricular white matter hypodensities are nonspecific, but favored to represent chronic small vessel ischemic changes. callaway-white matter interfaces are preserved. No mass effect or midline shift. HEMORRHAGE: There is trace extra-axial hemorrhage along the floor of the right anterior cranial fossa, measuring up to 2 mm in thickness. Trace hemorrhage also extends laterally around the right frontal lobe. VENTRICLES and EXTRA-AXIAL SPACES: The ventricles and sulci are within normal limits in size for brain volume. No abnormal extraaxial fluid collection. EXTRACRANIAL SOFT TISSUES: Within normal limits. CALVARIUM: Mildly buckled fracture of the floor of the right anterior cranial fossa/orbital roof. No destructive osseous lesion. Brain Injury (BIG) guidelines CT values: Skull fracture: Non-displaced SDH (subdural hematoma): <=4mm EDH (epidural hematoma): None detected IPH (intraparenchymal hemorrhage): None detected SAH (subarachnoid hemorrhage): Trace IVH (intraventricular hemorrhage): No Reference: Miguel Ángel Negron Robyn RS, Lesley M, et al. The BIG (brain injury guidelines) project: defining the management of traumatic brain injury by acute care surgeons. J Trauma Acute Care Surg. 2014;76:040o032. FACIAL BONES: No acute facial bone fracture. SOFT TISSUES: Mild right periorbital hematoma and laceration. No radiopaque foreign body. PARANASAL SINUSES: No hemorrhage in the paranasal sinuses. MASTOIDS: Within normal limits. ORBITS: The globes, extraocular muscles and optic nerve sheath complexes are symmetric. No retrobulbar hematoma. ALIGNMENT: Normal. VERTEBRAE: No acute fracture. SPINAL CANAL: Diffuse degenerative disc changes, moderate to severe at C6-7. No critical spinal canal stenosis. PREVERTEBRAL SOFT TISSUES: No prevertebral soft tissue swelling. LUNG APICES: Imaged portion of the lung apices are within normal limits. OTHER FINDINGS: None. IMPRESSION: Acute fracture of the right orbital roof/floor of the anterior cranial fossa with mild adjacent extra-axial hemorrhage. The hemorrhage measures up to 2 mm in thickness along the floor of the anterior cranial fossa, which may represent a small subdural hematoma or layering subarachnoid hemorrhage. Trace hemorrhage extending laterally along the right frontal lobe is favored to be subarachnoid. No acute facial bone fracture. No acute fracture or traumatic subluxation of the cervical spine. MACRO: None Signed by: Michelle Zambrano 05/10/2025 4:33 PM Dictation workstation: [id number] [facility] Work Phone: Interpretation and review of laboratory results Normal [facility] Radiology Study observation (narrative) [facility] Work Phone: Radiology Study observation (narrative) [facility] Work Phone: No Panel InformationOrdered By: Michelle Zambrano on 05-10-2025 [facility] Work Phone: PT Coag (PPP) [Time]on 05-10 INR Coag (PPP) [Relative time] 1.1 {INR} 0.9 - 1.1 [facility] INR Coag (PPP) [Relative time] 1.1 Normal 0.9-1.1 [facility] Comment on above: Performed By: #### 5 902-2 #### GAGNON IRENA ([id number]) [facility] [address] [place] [address] Protime-INRon 05-10-2025 PT Coag (PPP) [Time] 11.8 s [facility] Tropinin I.cardiac panel Hig h sensitivity methodon 05-10-2025 Interpretation and review of laboratory results Normal [facility] Less than 99th percentile of normal range cutoff- Female and children under 18 years old <14 ng/L; Male <21 ng/L: Negative Repeat testing should be performed if clinically indicated. Female and children under 18 years old 14-50 ng/L; Male 21-50 ng/L: Consistent with possible cardiac damage and possible increased clinical risk. Serial measurements may help to assess extent of myocardial damage. >50 ng/L: Consistent with cardiac damage, increased clinical risk and myocardial infarction. Serial measurements may help assess extent of myocardial damage. NOTE: Children less than 1 year old may have higher baseline troponin levels and results should be interpreted in conjunction with the overall clinical context. NOTE: Troponin I testing is performed using a different testing methodology at [facility] than at other [facility]. Direct result comparisons should only be made within the same method. [facility] Interpretation and review of laboratory results Normal [facility] Less than 99th percentile of normal range cutoff- Female and children under 18 years old <14 ng/L; Male <21 ng/L: Negative Repeat testing should be performed if clinically indicated. Female and children under 18 years old 14-50 ng/L; Male 21-50 ng/L: Consistent with possible cardiac damage and possible increased clinical risk. Serial measurements may help to assess extent of myocardial damage. >50 ng/L: Consistent with cardiac damage, increased clinical risk and myocardial infarction. Serial measurements may help assess extent of myocardial damage. NOTE: Children less than 1 year old may have higher baseline troponin levels and results should be interpreted in conjunction with the overall clinical context. NOTE: Troponin I testing is performed using a different testing methodology at [facility] than at other [facility]. Direct result comparisons should only be made within the same method. [facility] Troponin I, High Sensitivity , Initialon 05-10-2025 Tropinin I.cardiac panel High sensitivity method 7 ng/L 0 - 20 ng/L [facility] Troponin I.cardiac panelon 0 05-10-2025 Tropinin I.cardiac panel High sensitivity method 6 ng/L Normal 0-20 [facility] Comment on above: Order Comment: Less than 99th percentile of normal range cutoff-Female and children under 18 years old <14 ng/L; Male <21 ng/L: NegativeRepeat testing should be performed if clinically indicated.Female and children under 18 years old 14-50 ng/L; Male 21-50 ng/L:Consistent with possible cardiac damage and possible increased clinicalrisk. Serial measurements may help to assess extent of myocardial damage.>50 ng/L: Consistent with cardiac damage, increased clinical risk andmyocardial infarction. Serial measurements may help assess extent ofmyocardial damage.NOTE: Children less than 1 year old may have higher baseline troponinlevels and results should be interpreted in conjunction with the overallclinical context.NOTE: Troponin I testing is performed using a differenttesting methodology at [facility] than at [facility]. Direct result comparisons should onlybe made within the same method. Performed By: #### 8 [id number] ####GAGNON IRENA ([id number])[facility])[address] [place] [address] Tropinin I.cardiac panel High sensitivity method 7 ng/L Normal 0-20 [facility] Comment on above: Order Comment: Less than 99th percentile of normal range cutoff-Female and children under 18 years old <14 ng/L; Male <21 ng/L: NegativeRepeat testing should be performed if clinically indicated.Female and children under 18 years old 14-50 ng/L; Male 21-50 ng/L:Consistent with possible cardiac damage and possible increased clinicalrisk. Serial measurements may help to assess extent of myocardial damage.>50 ng/L: Consistent with cardiac damage, increased clinical risk andmyocardial infarction. Serial measurements may help assess extent ofmyocardial damage.NOTE: Children less than 1 year old may have higher baseline troponinlevels and results should be interpreted in conjunction with the overallclinical context.NOTE: Troponin I testing is performed using a differenttesting methodology at [facility] than at [facility]. Direct result comparisons should onlybe made within the same method. Performed By: #### 8 9577-1 ####GAGNON IRENA ([id number])[facility])[address] [place] [address] Troponin, High Sensitivity, 1 Houron 05-10-2025 Tropinin I.cardiac panel High sensitivity method 6 ng/L 0 - 20 ng/L [facility] XR HAND RIGHT 3+ VIEWSon XR HAND RIGHT 3+ VIEWS Interpreted By: Michelle Zambrano, STUDY: XR HAND RIGHT 3+ VIEWS; ; 05/10/2025 3:06 pm INDICATION: Signs/Symptoms:injury . COMPARISON: None. ACCESSION NUMBER(S): [id number] ORDERING CLINICIAN: SANTIAGO MENENDEZ FINDINGS: Three views right hand: No acute fracture or malalignment. Severe degenerative changes of the 1st carpometacarpal joint and moderate degenerative changes of the 2nd metacarpophalangeal joint. No radiopaque foreign body or soft tissue gas. IMPRESSION: No acute osseous abnormality. MACRO: None Signed by: Michelle Zambrano 05/10/2025 4:34 PM Dictation workstation: [id number] [facility] XR Hand - right 3 Viewson No acute osseous abnormality. MACRO: None Signed by: Michelle Zambrano 05/10/2025 4:34 PM Dictation workstation: [id number] [facility] Interpreted By: Michelle Zambrano, STUDY: XR HAND RIGHT 3+ VIEWS; ; 05/10/2025 3:06 pm INDICATION: Signs/Symptoms:injury . COMPARISON: None. ACCESSION NUMBER(S): [id number] ORDERING CLINICIAN: SANTIAGO MENENDEZ FINDINGS: Three views right hand: No acute fracture or malalignment. Severe degenerative changes of the 1st carpometacarpal joint and moderate degenerative changes of the 2nd metacarpophalangeal joint. No radiopaque foreign body or soft tissue gas. [facility] MM[facility]AL Michelle Zambrano MD - 05/10/2025 Interpreted By: Michelle Zambrano, STUDY: XR HAND RIGHT 3+ VIEWS; ; 05/10/2025 3:06 pm INDICATION: Signs/Symptoms:injury . COMPARISON: None. ACCESSION NUMBER(S): [id number] ORDERING CLINICIAN: SANTIAGO MENENDEZ FINDINGS: Three views right hand: No acute fracture or malalignment. Severe degenerative changes of the 1st carpometacarpal joint and moderate degenerative changes of the 2nd metacarpophalangeal joint. No radiopaque foreign body or soft tissue gas. IMPRESSION: No acute osseous abnormality. MACRO: None Signed by: Michelle Zambrano 05/10/2025 4:34 PM Dictation workstation: [id number] [facility] Work Phone: [facility] Work Phone: Radiology Study observation (narrative) [facility] Work Phone: aPTTon 05-10-2025 aPTT Coag (PPP) [Time] 29 [facility] Coag (PPP) [Time]on The APTT is no longe r used for monitoring Unfractionated Heparin Therapy. For monitoring Heparin Therapy, use the Heparin Assay. [facility] XR CERVICAL SPINE 2-3 VIEWSo n 05-08-2025 XR CERVICAL SPINE 2-3 VIEWS Interpreted By: Clement Estevez, STUDY: XR CERVICAL SPINE 2-3 VIEWS; ; 05/08/2025 10:25 am INDICATION: Signs/Symptoms:neck pain. ,M54.2 Cervicalgia COMPARISON: None. ACCESSION NUMBER(S): [id number] ORDERING CLINICIAN: DON BARRERA FINDINGS: There is moderate multilevel disc space narrowing osteophytosis throughout the cervical spine worse at C4-C5. There is accentuated lordosis of the cervical spine. There is moderate facet disease. There is no evidence of a fracture. 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 MACRO: None Signed by: Clement Estevez 05/09/2025 8:28 AM Dictation workstation: [id number] [facility] CBC (INCLUDES DIFF/PLT)on Basophils (Bld) [#/Vol] 0.05 10*3/uL Normal 0-200 [facility] Comment on above: Performed By: #### 6 399, [id number] #### [facility] [place] [address] [employer]: Osman Rojo MD Basophils/100 WBC (Bld) 0.6 % Normal [facility] Comment on above: Performed By: #### 6 399, [id number] #### [facility] [place] [address] [employer]: Osman Rojo MD Eosinophils (Bld) [#/Vol] 0.116 10*3/uL Normal 15-500 [facility] Comment on above: Performed By: #### 6 399, 33453 #### [facility] [place] [address] [employer]: Osman Rojo MD Eosinophils/100 WBC (Bld) 1.4 % Normal [facility] Comment on above: Performed By: #### 6 399, 29133 #### [facility] [place] [address] [employer]: Osman Rooj MD Erythrocyte distribution width (RBC) [Ratio] 12.3 % Normal 11.0-15.0 [facility] Comment on above: Performed By: #### 6 399, 74759 #### [facility] [place] [address] [employer]: Osman Rojo MD Hematocrit (Bld) [Volume fraction] 40.6 % Normal 38.5-50.0 [facility] Comment on above: Performed By: #### 6 399, 12763 #### [facility] [place] [address] [employer]: Osman Rojo MD Hemoglobin (Bld) [Mass/Vol] 13.0 g/dL Low 13.2-17.1 [facility] Comment on above: Performed By: #### 6 399, 85865 #### [facility] [place] [address] [employer]: Osman Rojo MD Lymphocytes (Bld) [#/Vol] 1.204 10*3/uL Normal 850-3900 [facility] Comment on above: Performed By: #### 6 399, [id number] #### [facility] [place] [address] [employer]: Osman Rojo MD Lymphocytes/100 WBC (Bld) 14.5 % Normal [facility] Comment on above: Performed By: #### 6 399, 22094 #### [facility] [address], [address] [place] [address] [employer]: Osman Rojo MD MCH (RBC) [Entitic mass] 33.5 pg High 27.0-33.0 [facility] Comment on above: Performed By: #### 6 399, 45792 #### [facility] [place] [address] [employer]: Osman Rojo MD MCHC (RBC) [Mass/Vol] 32.0 g/dL Normal 32.0-36.[address] [facility] Comment on above: Result Comment: For adults, a slight decrease in the calculated MCHC value (in the range of 30 to 32 g/dL) is most likely not clinically significant; however, it should be interpreted with caution in correlation with other red cell parameters and the patient's clinical condition. Performed By: #### 6 399, 28421 #### [facility] [place] [address] [employer]: Osman Rojo MD MCV (RBC) [Entitic vol] 104.6 fL High 80.0-100.0 [facility] Comment on above: Performed By: #### 6 399, 85607 #### [facility] [place] [address] [employer]: Osman Rojo MD Monocytes (Bld) [#/Vol] 0.498 10*3/uL Normal 200-950 [facility] Comment on above: Performed By: #### 6 399, 67497 #### [facility] of [address], [address] [place] [address] [employer]: Osman Rojo MD Monocytes/100 WBC (Bld) 6.0 % Normal [facility] Comment on above: Performed By: #### 6 399, 59183 #### [facility] [place] [address] [employer]: Osman Rojo MD Neutrophils (Bld) [#/Vol] 6.433 10*3/uL Normal 5278-6251 [facility] Comment on above: Performed By: #### 6 399, 58939 #### [facility] [place] [address] [employer]: Osman Rojo MD Neutrophils/100 WBC (Bld) 77.5 % Normal [facility] Comment on above: Performed By: #### 6 399, 08883 #### [facility] [place] [address] [employer]: Osman Rojo MD Platelet mean volume (Bld) [Entitic vol] 9.4 fL Normal 7.5-12.5 [facility] Comment on above: Performed By: #### 6 399, 11416 #### [facility] [place] [address] [employer]: Osman Rojo MD Platelets (Bld) [#/Vol] 263 10*3/uL Normal 140-400 [facility] Comment on above: Performed By: #### 6 399, 84376 #### [facility] [place] [address] [employer]: Osman Rojo MD RBC (Bld) [#/Vol] 3.88 10*6/uL Low 4.20-5.80 [facility] Comment on above: Performed By: #### 6 399, 59299 #### [facility] [place] [address] [employer]: Osman Rojo MD WBC (Bld) [#/Vol] 8.3 10*3/uL Normal 3.8-10.8 [facility] Comment on above: Performed By: #### 6 399, 99514 #### [facility] [place] [address] [employer]: Osman Rojo MD COMPREHENSIVE METABOLIC PANE L W/ANION GAPon 04-30-2025 Albumin [Mass/Vol] 4.5 g/dL Normal 3.6-5.1 [facility] Comment on above: Performed By: #### 6 399, 46580 #### [facility] [place] [address] [employer]: Osman Rojo MD ALP [Catalytic activity/Vol] 72 U/L Normal 35-144 [facility] Comment on above: Performed By: #### 6 399, 04497 #### [facility] [place] [address] [employer]: Osman Rojo MD ALT [Catalytic activity/Vol] 13 U/L Normal 9-46 [facility] Comment on above: Performed By: #### 6 399, 89161 #### [facility] [place] [address] [employer]: Osman Rojo MD AST [Catalytic activity/Vol] 15 U/L Normal 10-35 [facility] Comment on above: Performed By: #### 6 399, 25475 #### [facility] [place] [address] [employer]: Osman Rojo MD Bilirubin [Mass/Vol] 0.5 mg/dL Normal 0.2-1.2 [facility] Comment on above: Performed By: #### 6 399, 67256 #### [facility] [place] [address] [employer]: Osman Rojo MD Calcium [Mass/Vol] 8.9 mg/dL Normal 8.6-10.3 [facility] Comment on above: Performed By: #### 6 399, 62290 #### [facility] of [address], [address] [place] [address] [employer]: Osman Rojo MD Chloride [Moles/Vol] 103 mmol/L Normal 98-110 [facility] Comment on above: Performed By: #### 6 399, 96655 #### [facility] of [address], [address] [place] [address] [employer]: Osman Rojo MD CO2 [Moles/Vol] 26 mmol/L Normal 20-32 [facility] Comment on above: Performed By: #### 6 399, 00018 #### [facility] [place] [address] [employer]: Osman Rojo MD Creatinine [Mass/Vol] 0.75 mg/dL Normal 0.70-1.[address] [facility] Comment on above: Performed By: #### 6 399, 82207 #### [facility] of [address], [address] [place] [address] [employer]: Osman Rojo MD ELECTROLYTE BALANCE 10 mmol/L (calc) Normal 7-17 [facility] Comment on above: Performed By: #### 6 399, 01807 #### [facility] [place] [address] [employer]: Osman Rojo MD GFR/1.73 sq M.predicted among non-blacks MDRD (S/P/Bld) [Vol rate/Area] 86 mL/min/{1.73_m2} Normal > OR = 60 [facility] Comment on above: Performed By: #### 6 399, 99905 #### [facility] [place] [address] [employer]: Osman Rojo MD Glucose [Mass/Vol] 86 mg/dL Normal 65-99 [facility] Comment on above: Result Comment: Fasting reference interval Performed By: #### 6 399, 82964 #### [facility] [place] [address] [employer]: Osman Rojo MD Potassium [Moles/Vol] 4.2 mmol/L Normal 3.5-5.[address] [facility] Comment on above: Performed By: #### 6 399, 78955 #### [facility] [address], [address] [place] [address] [employer]: Osman Rojo MD Protein [Mass/Vol] 6.2 g/dL Normal 6.1-8.1 [facility] Comment on above: Performed By: #### 6 399, 21115 #### [facility] [address], [address] [place] [address] [employer]: Osman Rojo MD Sodium [Moles/Vol] 139 mmol/L Normal 135-146 [facility] Comment on above: Performed By: #### 6 399, 39294 #### [facility] [address], [address] [place] [address] [employer]: Osman Rojo MD Urea nitrogen [Mass/Vol] 22 mg/dL Normal 7-25 [facility] Comment on above: Performed By: #### 6 399, [id number] #### [facility] [place] [address] [employer]: Osman Rojo MD XR RIBS 2 VIEWS LEFT WITH CH EST PA OR APon 04-10-2025 XR RIBS 2 VIEWS LEFT WITH CHEST PA OR AP Interpreted By: Howard Elias, STUDY: XR RIBS 2 VIEWS LEFT WITH CHEST PA OR AP; ; 04/10/2025 12:23 pm INDICATION: Signs/Symptoms:L lower anterior/lateral ribcage pain - reports sxs started after a chiropractic adjustment (done while he was laying on his abdomen) on Sunday.. ,R07.81 Pleurodynia COMPARISON: None. ACCESSION NUMBER(S): [id number] ORDERING CLINICIAN: LINCOLN KING FINDINGS: Cardiac silhouette within normal limits. Mild bibasilar fibrotic stranding. No focal infiltrate, pleural effusion or pneumothorax. Nondisplaced fracture of the anterior left 6th rib. IMPRESSION: Nondisplaced fracture anterior left 6th rib. No pneumothorax. MACRO: None Signed by: Howard Elias 04/10/2025 1:50 PM Dictation workstation: [id number] [facility] XR Ribs Views and Chest PAon 04-10-2025 Nondisplaced fractur e anterior left 6th rib. No pneumothorax. MACRO: None Signed by: Howard Elias 04/10/2025 1:50 PM Dictation workstation: [id number] Interpreted By: Howard Elias, STUDY: XR RIBS 2 VIEWS LEFT WITH CHEST PA OR AP; ; 04/10/2025 12:23 pm INDICATION: Signs/Symptoms:L lower anterior/lateral ribcage pain - reports sxs started after a chiropractic adjustment (done while he was laying on his abdomen) on Sunday.. ,R07.81 Pleurodynia COMPARISON: None. ACCESSION NUMBER(S): [id number] ORDERING CLINICIAN: LINCOLN KING FINDINGS: Cardiac silhouette within normal limits. Mild bibasilar fibrotic stranding. No focal infiltrate, pleural effusion or pneumothorax. Nondisplaced fracture of the anterior left 6th rib. [facility] Howard Elias MD - 04/10/2025 Interpreted By: Howard Elias, STUDY: XR RIBS 2 VIEWS LEFT WITH CHEST PA OR AP; ; 04/10/2025 12:23 pm INDICATION: Signs/Symptoms:L lower anterior/lateral ribcage pain - reports sxs started after a chiropractic adjustment (done while he was laying on his abdomen) on Sunday.. ,R07.81 Pleurodynia COMPARISON: None. ACCESSION NUMBER(S): [id number] ORDERING CLINICIAN: LINCOLN KING FINDINGS: Cardiac silhouette within normal limits. Mild bibasilar fibrotic stranding. No focal infiltrate, pleural effusion or pneumothorax. Nondisplaced fracture of the anterior left 6th rib. IMPRESSION: Nondisplaced fracture anterior left 6th rib. No pneumothorax. MACRO: None Signed by: Howard Elias 04/10/2025 1:50 PM Dictation workstation: [id number] [place] [address] Work Phone: Radiology Study observation (narrative) [facility] Work Phone: XR Ribs Views and Chest PAOr dered By: Howard Elias on 04-10-2025 [facility] Work Phone: CBC (INCLUDES DIFF/PLT)on Basophils (Bld) [#/Vol] 0.05 10*3/uL Normal 0-200 [facility] Comment on above: Performed By: #### 9 024, 6399 #### [facility] [address], [address] [place] [address] [employer]er: Osman Rojo MD Basophils/100 WBC (Bld) 0.6 % Normal [facility] Comment on above: Performed By: #### 9 365, 6399 #### [facility] [place] [address] [employer]er: Osman Rojo MD Eosinophils (Bld) [#/Vol] 0.116 10*3/uL Normal 15-500 [facility] Comment on above: Performed By: #### 9 620, 6399 #### [facility] [place] [address] [employer]er: Osman Rojo MD Eosinophils/100 WBC (Bld) 1.4 % Normal [facility] Comment on above: Performed By: #### 9 2664, 6399 #### [facility] [place] [address] [employer]er: Osman Rojo MD Erythrocyte distribution width (RBC) [Ratio] 12.9 % Normal 11.0-15.0 [facility] Comment on above: Performed By: #### 9 598, 6399 #### [facility] [place] [address] [employer]er: Osman Rojo MD Hematocrit (Bld) [Volume fraction] 38.2 % Low 38.5-50.0 [facility] Comment on above: Performed By: #### 9 2664, 6399 #### [facility] [place] [address] [employer]: Osman Rojo MD Hemoglobin (Bld) [Mass/Vol] 12.8 g/dL Low 13.2-17.1 [facility] Comment on above: Performed By: #### 9 233, 6399 #### [facility] [place] [address] [employer]er: Osman Rojo MD Lymphocytes (Bld) [#/Vol] 0.764 10*3/uL Low 850-3900 [facility] Comment on above: Performed By: #### 9 679, 6399 #### [facility] [place] [address] [employer]: Osman Rojo MD Lymphocytes/100 WBC (Bld) 9.2 % Normal [facility] Comment on above: Performed By: #### 9 017, 6399 #### [facility] [place] [address] [employer]er: Osman Rojo MD MCH (RBC) [Entitic mass] 34.0 pg High 27.0-33.0 [facility] Comment on above: Performed By: #### 9 819, 6399 #### [facility] [place] [address] [employer]: Osman Rojo MD MCHC (RBC) [Mass/Vol] 33.5 g/dL Normal 32.0-36.[address] [facility] Comment on above: Result Comment: For adults, a slight decrease in the calculated MCHC value (in the range of 30 to 32 g/dL) is most likely not clinically significant; however, it should be interpreted with caution in correlation with other red cell parameters and the patient's clinical condition. Performed By: #### 9 665, 6399 #### [facility] [place] [address] [employer]: Osman Rojo MD MCV (RBC) [Entitic vol] 101.3 fL High 80.0-100.0 [facility] Comment on above: Performed By: #### 9 2664, 6399 #### [facility] [place] [address] [employer]: Osman Rojo MD Monocytes (Bld) [#/Vol] 0.714 10*3/uL Normal 200-950 [facility] Comment on above: Performed By: #### 9 2664, 6399 #### [facility] [place] [address] [employer]: Osman Rojo MD Monocytes/100 WBC (Bld) 8.6 % Normal [facility] Comment on above: Performed By: #### 9 2664, 6399 #### [facility] [place] [address] [employer]er: Osman Rojo MD Neutrophils (Bld) [#/Vol] 6.657 10*3/uL Normal 7131-5115 [facility] Comment on above: Performed By: #### 9 2664, 6399 #### [facility] [place] [address] [employer]: Osman Rojo MD Neutrophils/100 WBC (Bld) 80.2 % Normal [facility] Comment on above: Performed By: #### 9 2664, 6399 #### [facility] [place] [address] [employer]: Osman Rojo MD Platelet mean volume (Bld) [Entitic vol] 9.5 fL Normal 7.5-12.5 [facility] Comment on above: Performed By: #### 9 2664, 6399 #### [facility] [place] [address] [employer]er: Osman Rojo MD Platelets (Bld) [#/Vol] 280 10*3/uL Normal 140-400 [facility] Comment on above: Performed By: #### 9 2664, 6399 #### [facility] [address], [address] [place] [address] [employer]er: Osman Rojo MD RBC (Bld) [#/Vol] 3.77 10*6/uL Low 4.20-5.80 [facility] Comment on above: Performed By: #### 9 167, 6399 #### [facility] [address], [address] [place] [address] [employer]er: Osman Rojo MD WBC (Bld) [#/Vol] 8.3 10*3/uL Normal 3.8-10.8 [facility] Comment on above: Performed By: #### 9 841, 6399 #### [facility] [place] [address] [employer]er: Osman Rojo MD COMPREHENSIVE METABOLIC PANE L W/ANION GAPon 01-28-2025 Albumin [Mass/Vol] 4.1 g/dL Normal 3.6-5.1 [facility] Comment on above: Performed By: #### 9 092, 6399 #### [facility] [place] [address] [employer]: Osman Rojo MD ALP [Catalytic activity/Vol] 70 U/L Normal 35-144 [facility] Comment on above: Performed By: #### 9 114, 6399 #### [facility] [place] [address] [employer]er: Osman Rojo MD ALT [Catalytic activity/Vol] 18 U/L Normal 9-46 [facility] Comment on above: Performed By: #### 9 485, 6399 #### [facility] [place] [address] [employer]er: Osman Rojo MD AST [Catalytic activity/Vol] 19 U/L Normal 10-35 [facility] Comment on above: Performed By: #### 9 194, 6399 #### [facility] [place] [address] [employer]er: Osman Rojo MD Bilirubin [Mass/Vol] 0.7 mg/dL Normal 0.2-1.2 [facility] Comment on above: Performed By: #### 9 743, 6399 #### [facility] [place] [address] [employer]er: Osman Rojo MD Calcium [Mass/Vol] 8.7 mg/dL Normal 8.6-10.3 [facility] Comment on above: Performed By: #### 9 2664, 6399 #### [facility] [address], [address] [place] [address] [employer]er: Osman Rojo MD Chloride [Moles/Vol] 104 mmol/L Normal 98-110 [facility] Comment on above: Performed By: #### 9 734, 6399 #### [facility] [place] [address] [employer]er: Osman Rojo MD CO2 [Moles/Vol] 25 mmol/L Normal 20-32 [facility] Comment on above: Performed By: #### 9 898, 6399 #### [facility] [address], [address] [place] [address] [employer]er: Osman Rojo MD Creatinine [Mass/Vol] 0.87 mg/dL Normal 0.70-1.[address] [facility] Comment on above: Performed By: #### 9 188, 6399 #### [facility] [place] [address] [employer]er: Osman Rojo MD ELECTROLYTE BALANCE 11 mmol/L (calc) Normal 7-17 [facility] Comment on above: Performed By: #### 9 485, 6399 #### [facility] [place] [address] [employer]er: Osman Rojo MD GFR/1.73 sq M.predicted among non-blacks MDRD (S/P/Bld) [Vol rate/Area] 83 mL/min/{1.73_m2} Normal > OR = 60 [facility] Comment on above: Performed By: #### 9 501, 6399 #### [facility] [address], [address] [place] [address] [employer]er: Osman Rojo MD Glucose [Mass/Vol] 79 mg/dL Normal 65-99 [facility] Comment on above: Result Comment: Fasting reference interval Performed By: #### 9 7575, 6399 #### [facility] [address], [address] [place] [address] [employer]er: Osman Rojo MD Potassium [Moles/Vol] 4.1 mmol/L Normal 3.5-5.[address] [facility] Comment on above: Performed By: #### 9 967, 6399 #### [facility] [address], [address] [place] [address] [employer]er: Osman Rojo MD Protein [Mass/Vol] 5.9 g/dL Low 6.1-8.1 [facility] Comment on above: Performed By: #### 9 582, 6399 #### [facility] [address], [address] [place] [address] [employer]er: Osman Rojo MD Sodium [Moles/Vol] 140 mmol/L Normal 135-146 [facility] Comment on above: Performed By: #### 9 163, 6399 #### [facility] [place] [address] [employer]er: Osman Rojo MD Urea nitrogen [Mass/Vol] 21 mg/dL Normal 7-25 [facility] Comment on above: Performed By: #### 9 317, 6399 #### [facility] [address], [address] [place] [address] [employer]er: Osman Rojo MD DIRECT LDLon 11-21-2024 Cholesterol in LDL [Mass/Vol] 80 mg/dL Normal <100 [facility] Comment on above: Order Comment: FASTI NG:NO FASTING: NO Result Comment: Grea tly elevated Triglycerides values (>1200 mg/dL) interfere with the dLDL assay. Desirable range <100 mg/dL for primary prevention; <70 mg/dL for patients with CHD or diabetic patients with > or = 2 CHD risk factors. Performed By: #### 8 293, 466, 457, 927 #### [facility] [place] [address] [employer]er: Omsan Rojo MD FERRITINon 11-21-2024 Ferritin [Mass/Vol] 158 ng/mL Normal 24-380 [facility] Comment on above: Performed By: #### 8 293, 466, 457, 927 #### [facility] [place] [address] [employer]er: Osman Rojo MD FOLATE, SERUMon 11-21-2024 Folate [Mass/Vol] ng/mL Normal [facility] Comment on above: Result Comment: Refe rence Range Low: <3.4 Borderline: 3.4-5.4 Normal: >5.4 Performed By: #### 8 293, 466, 457, 927 #### [facility] [place] [address] [employer]er: Osman Rojo MD VITAMIN B12on 11-21-2024 Cobalamin (Vitamin B12) [Mass/Vol] 314 pg/mL Normal 200-1100 [facility] Comment on above: Result Comment: Please Note: Although the reference range for vitamin B12 is 200-1100 pg/mL, it has been reported that between 5 and 10% of patients with values between 200 and 400 pg/mL may experience neuropsychiatric and hematologic abnormalities due to occult B12 deficiency; less than 1% of patients with values above 400 pg/mL will have symptoms. Performed By: #### 8 293, 466, 457, 927 #### [facility] [address], [address] [place] [address] [employer]: Osman Rojo MD CBC W Auto Differential pane l (Bld)on 11-10-2024 Basophils (Bld) [#/Vol] 0.06 x10*3/uL Normal 0.00-0.10 [facility] Comment on above: Performed By: #### 5 7021-8 #### KALIN OSBORN ([id number]) [facility]) [address] [place] [address] Basophils/100 WBC (Bld) 0.6 % Normal 0.0-2.0 [facility] Comment on above: Performed By: #### 5 7021-8 #### KALIN OSBORN ([id number]) [facility]) [address] [place] [address] Eosinophils (Bld) [#/Vol] 0.10 x10*3/uL Normal 0.00-0.40 [facility] Comment on above: Performed By: #### 5 7021-8 #### KALIN OSBORN ([id number]) [facility]) [address] [place] [address] Eosinophils/100 WBC (Bld) 1.1 % Normal 0.0-6.0 [facility] Comment on above: Performed By: #### 5 7021-8 #### KALIN OSBORN ([id number]) [facility]) [address] [place] [address] Erythrocyte distribution width (RBC) [Ratio] 13.4 % Normal 11.5-14.5 [facility] Comment on above: Performed By: #### 5 7021-8 #### KALIN OSBORN ([id number]) [facility]) [address] [place] [address] Hematocrit (Bld) [Volume fraction] 41.4 % Normal 41.0-52.0 [facility] Comment on above: Performed By: #### 5 7021-8 #### KALIN OSBORN ([id number]) [facility]) [address] [place] [address] Hemoglobin (Bld) [Mass/Vol] 13.0 g/dL Low 13.5-17.5 [facility] Comment on above: Performed By: #### 5 7021-8 #### KALIN OSBORN ([id number]) [facility]) [address] [place] [address]15[address] Immature granulocytes (Bld) [#/Vol] 0.05 x10*3/uL Normal 0.00-0.50 [facility] Comment on above: Performed By: #### 5 7021-8 #### KALIN OSBORN ([id number]) [facility]) [address] [place] [address] 15799 Immature granulocytes/100 WBC (Bld) 0.5 % Normal 0.0-0.9 [facility] Comment on above: Result Comment: Steph ture Granulocyte Count (IG) includes promyelocytes, myelocytes and metamyelocytes but does not include bands. Percent differential counts (%) should be interpreted in the context of the absolute cell counts (cells/UL). Performed By: #### 5 7021-8 #### KALIN OSBORN ([id number]) [facility]) [address] [place] [address] Lymphocytes (Bld) [#/Vol] 1.08 x10*3/uL Normal 0.80-3.00 [facility] Comment on above: Performed By: #### 5 7021-8 #### KALIN OSBORN ([id number]) [facility]) [address] [place] [address] 789[address] Lymphocytes/100 WBC (Bld) 11.5 % Normal 13.0-44.0 [facility] Comment on above: Performed By: #### 5 7021-8 #### KALIN OSBORN ([id number]) [facility]) [address] [place] [address] 02662 MCH (RBC) [Entitic mass] 33.2 pg Normal 26.0-34.0 [facility] Comment on above: Performed By: #### 5 7021-8 #### KALIN OSBORN ([id number]) [facility]) [address] [place] [address] 69795 MCHC (RBC) [Mass/Vol] 31.4 g/dL Low 32.0-36.0 [facility] Comment on above: Performed By: #### 5 7021-8 #### KALIN OSBORN ([id number]) [facility]) [address] [place] [address] 30996 MCV (RBC) [Entitic vol] 106 fL High 80-100 [facility] Comment on above: Performed By: #### 5 7021-8 #### KALIN OSBORN ([id number]) [facility]) [address] [place] [address] Monocytes (Bld) [#/Vol] 0.85 x10*3/uL High 0.05-0.80 [facility] Comment on above: Performed By: #### 5 7021-8 #### KALIN OSBORN ([id number]) [facility]) [address] [place] [address] 72524 Monocytes/100 WBC (Bld) 9.0 % Normal 2.0-10.0 [facility] Comment on above: Performed By: #### 5 7021-8 #### KALIN OSBORN ([id number]) [facility]) [address] [place] [address] Neutrophils (Bld) [#/Vol] 7.27 x10*3/uL High 1.60-5.50 [facility] Comment on above: Result Comment: Perc ent differential counts (%) should be interpreted in the context of the absolute cell counts (cells/uL). Performed By: #### 5 7021-8 #### KALIN OSBORN ([id number]) [facility]) [address] [place] [address] 89508 Neutrophils/100 WBC (Bld) 77.3 % Normal 40.0-80.0 [facility] Comment on above: Performed By: #### 5 7021-8 #### KALIN OSBORN ([id number]) [facility]) [address] [place] [address] 96351 Nucleated RBC/100 WBC (Bld) [Ratio] 0.0 /100 WBCs Normal 0.0-0.0 [facility] Comment on above: Performed By: #### 5 7021-8 #### KALIN OSBORN ([id number]) [facility]) [address] [place] [address] 53164 Platelets (Bld) [#/Vol] 270 x10*3/uL Normal 150-450 [facility] Comment on above: Performed By: #### 5 7021-8 #### KALIN OSBORN ([id number]) [facility]) [address] [place] [address] RBC (Bld) [#/Vol] 3.92 x10*6/uL Low 4.50-5.90 [facility] Comment on above: Performed By: #### 5 7021-8 #### KALIN OSBORN ([id number]) [facility]) [address] [place] [address] WBC (Bld) [#/Vol] 9.4 x10*3/uL Normal 4.4-11.3 [facility] Comment on above: Performed By: #### 5 7021-8 #### KALIN OSBORN ([id number]) [facility]) [address] [place] [address] Comprehensive metabolic 2000 panelon 11-10-2024 Albumin BCP dye [Mass/Vol] 4.2 g/dL Normal 3.4-5.0 [facility] Comment on above: Performed By: #### 2 4323-8 #### KALIN OSBORN ([id number]) [facility]) [address] [place] [address] ALP [Catalytic activity/Vol] 57 U/L Normal 33-136 [facility] Comment on above: Performed By: #### 2 4323-8 #### KALIN OSBORN ([id number]) [facility]) [address] [place] [address] 20051 ALT With P-5'-P [Catalytic activity/Vol] 13 U/L Normal 10-52 [facility] Comment on above: Result Comment: Nicolette ents treated with Sulfasalazine may generate falsely decreased results for ALT. Performed By: #### 2 4323-8 #### AKLIN OSBORN ([id number]) [facility]) [address] [place] [address] 82527 Anion gap [Moles/Vol] 11 mmol/L Normal 10-20 [facility] Comment on above: Performed By: #### 2 4322-8 #### KALIN OSBORN ([id number]) [facility]) [address] [place] [address] AST With P-5'-P [Catalytic activity/Vol] 15 U/L Normal 9-39 [facility] Comment on above: Performed By: #### 2 432-8 #### KALIN OSBORN ([id number]) [facility]) [address] [place] [address] 27998 Bilirubin [Mass/Vol] 0.7 mg/dL Normal 0.0-1.2 [facility] Comment on above: Performed By: #### 2 4322-8 #### KALIN OSBORN ([id number]) [facility]) [address] [place] [address] 74391 Calcium [Mass/Vol] 9.0 mg/dL Normal 8.6-10.3 [facility] Comment on above: Performed By: #### 2 4322-8 #### KALIN OSBORN ([id number]) [facility]) [address] [place] [address] Chloride [Moles/Vol] 106 mmol/L Normal 98-107 [facility] Comment on above: Performed By: #### 2 4322-8 #### KALIN OSBORN ([id number]) [facility]) [address] [place] [address] 43011 CO2 [Moles/Vol] 28 mmol/L Normal 21-32 [facility] Comment on above: Performed By: #### 2 4322-8 #### KALIN OSBORN ([id number]) [facility]) [address] [place] [address] 04538 Creatinine [Mass/Vol] 1.00 mg/dL Normal 0.50-1.30 [facility] Comment on above: Performed By: #### 2 3-8 #### KALIN OSBORN ([id number]) [facility]) [address] [place] [address] 52280 Glomerular filtration rate/1.73 sq M.predicted 72 mL/min/1.73m*2 Normal >60 [facility] Comment on above: Result Comment: Calc ulations of estimated GFR are performed using the 2020 CKD-EPI Study Refit equation without the race variable for the IDMS-Traceable creatinine methods. https://jasn.asnjournals.org/content//ASN.09073 67121 Performed By: #### 2 4323-8 #### KALIN OSBORN ([id number]) [facility]) [address] [place] [address] 25430 Glucose [Mass/Vol] 85 mg/dL Normal 74-99 [facility] Comment on above: Performed By: #### 2 4323-8 #### KALIN OSBORN ([id number]) [facility]) [address] [place] [address] 47334 Potassium [Moles/Vol] 4.4 mmol/L Normal 3.5-5.3 [facility] Comment on above: Performed By: #### 2 4323-8 #### KALIN OSBORN ([id number]) [facility]) [address] [place] [address] 17062 Protein [Mass/Vol] 5.8 g/dL Low 6.4-8.2 [facility] Comment on above: Performed By: #### 2 4323-8 #### KALIN OSBORN ([id number]) [facility]) [address] [place] [address] 74207 Sodium [Moles/Vol] 141 mmol/L Normal 136-145 [facility] Comment on above: Performed By: #### 2 4323-8 #### KALIN OSBORN ([id number]) [facility]) [address] [place] [address] 45452 Urea nitrogen [Mass/Vol] 23 mg/dL Normal 6-23 [facility] Comment on above: Performed By: #### 2 4323-8 #### KALIN OSBORN ([id number]) [facility]) [address] [place] [address] 59647 CBC W Auto Differential pane l (Bld)on 09-01-2024 Basophils (Bld) [#/Vol] 0.03 x10*3/uL Normal 0.00-0.10 [facility] Comment on above: Performed By: #### 5 7021-8 #### KALIN OSBORN ([id number]) [facility]) [address] [place] [address] 77907 Basophils/100 WBC (Bld) 0.2 % Normal 0.0-2.0 [facility] Comment on above: Performed By: #### 5 7021-8 #### KALIN OSBORN (77253) [facility]) [address] [place] [address] 79827 Eosinophils (Bld) [#/Vol] 0.03 x10*3/uL Normal 0.00-0.40 [facility] Comment on above: Performed By: #### 5 7021-8 #### KALIN OSBORN ([id number]) [facility]) [address] [place] [address] 74411 Eosinophils/100 WBC (Bld) 0.2 % Normal 0.0-6.0 [facility] Comment on above: Performed By: #### 5 7021-8 #### KALIN OSBORN ([id number]) [facility]) [address] [place] [address] 44024 Erythrocyte distribution width (RBC) [Ratio] 13.0 % Normal 11.5-14.5 [facility] Comment on above: Performed By: #### 5 7021-8 #### KALIN OSBORN ([id number]) [facility]) [address] [place] [address] 09501 Hematocrit (Bld) [Volume fraction] 46.1 % Normal 41.0-52.0 [facility] Comment on above: Performed By: #### 5 7021-8 #### KALIN OSBORN ([id number]) [facility]) [address] [place] [address] 73599 Hemoglobin (Bld) [Mass/Vol] 14.6 g/dL Normal 13.5-17.5 [facility] Comment on above: Performed By: #### 5 7021-8 #### KALIN OSBORN (65536) [facility]) [address] [place] [address] 73955 Immature granulocytes (Bld) [#/Vol] 0.19 x10*3/uL Normal 0.00-0.50 [facility] Comment on above: Performed By: #### 5 7021-8 #### KALIN OSBORN ([id number]) [facility]) [address] [place] [address] 60732 Immature granulocytes/100 WBC (Bld) 1.3 % High 0.0-0.9 [facility] [facility] Comment on above: Result Comment: Steph ture Granulocyte Count (IG) includes promyelocytes, myelocytes and metamyelocytes but does not include bands. Percent differential counts (%) should be interpreted in the context of the absolute cell counts (cells/UL). Performed By: #### 5 7021-8 #### KALIN OSBORN ([id number]) [facility] ([facility]) [address] [place] [address] 03614 Lymphocytes (Bld) [#/Vol] 0.96 x10*3/uL Normal 0.80-3.00 [facility] Comment on above: Performed By: #### 5 7021-8 #### KALIN OSBORN ([id number]) [facility] ([facility]) [address] [place] [address] 02284 Lymphocytes/100 WBC (Bld) 6.6 % Normal 13.0-44.0 [facility] Comment on above: Performed By: #### 5 7021-8 #### KALIN OSBORN ([id number]) [facility] ([facility]) [address] [place] [address] 07565 MCH (RBC) [Entitic mass] 33.6 pg Normal 26.0-34.0 [facility] Comment on above: Performed By: #### 5 7021-8 #### KALIN OSBORN ([id number]) [facility] ([facility]) [address] [place] [address] 92880 MCHC (RBC) [Mass/Vol] 31.7 g/dL Low 32.0-36.0 [facility] Comment on above: Performed By: #### 5 7021-8 #### KALIN OSBORN ([id number]) [facility] ([facility]) [address] [place] [address] 06826 MCV (RBC) [Entitic vol] 106 fL High 80-100 [facility] Comment on above: Performed By: #### 5 7021-8 #### KALIN OSBORN ([id number]) [facility] ([facility]) [address] [place] [address] 15940 Monocytes (Bld) [#/Vol] 1.47 x10*3/uL High 0.05-0.80 [facility] Comment on above: Performed By: #### 5 7021-8 #### KALIN OSBORN ([id number]) [facility] ([facility]) [address] [place] [address] 96244 Monocytes/100 WBC (Bld) 10.2 % Normal 2.0-10.0 [facility] Comment on above: Performed By: #### 5 7021-8 #### KALIN OSBORN ([id number]) [facility] ([facility]) [address] [place] [address] 42342 Neutrophils (Bld) [#/Vol] 11.78 x10*3/uL High 1.60-5.50 [facility] Comment on above: Result Comment: Perc ent differential counts (%) should be interpreted in the context of the absolute cell counts (cells/uL). Performed By: #### 5 7021-8 #### KALIN OSBORN ([id number]) [facility] ([facility]) [address] [place] [address] 92583 Neutrophils/100 WBC (Bld) 81.5 % Normal 40.0-80.0 [facility] Comment on above: Performed By: #### 5 7021-8 #### KALIN OSBORN ([id number]) [facility] ([facility]) [address] [place] [address] 06798 Nucleated RBC/100 WBC (Bld) [Ratio] 0.0 /100 WBCs Normal 0.0-0.0 [facility] Comment on above: Performed By: #### 5 7021-8 #### KALIN OSBORN ([id number]) [facility]) [address] [place] [address] 41013 Platelets (Bld) [#/Vol] 305 x10*3/uL Normal 150-450 [facility] Comment on above: Performed By: #### 5 7021-8 #### KAILN OSBORN ([id number]) [facility]) [address] [place] [address] 77351 RBC (Bld) [#/Vol] 4.35 x10*6/uL Low 4.50-5.90 [facility] Comment on above: Performed By: #### 5 7021-8 #### KALIN OSBORN ([id number]) [facility]) [address] [place], [place] [address] WBC (Bld) [#/Vol] 14.5 x10*3/uL High 4.4-11.3 [facility] Comment on above: Performed By: #### 5 7021-8 #### KALIN OSBORN ([id number]) [facility]) [address] [place], [place] [address] Comprehensive metabolic 2000 panelon 09-01-2024 Albumin BCP dye [Mass/Vol] 4.2 g/dL Normal 3.4-5.0 [facility] Comment on above: Performed By: #### 2 4323-8 #### KALIN OSBORN ([id number]) [facility]) [address] [place] [address] 62241 ALP [Catalytic activity/Vol] 64 U/L Normal 33-136 [facility] Comment on above: Performed By: #### 2 4323-8 #### KALIN OSBORN ([id number]) [facility]) [address] [place] [address] 28158 ALT With P-5'-P [Catalytic activity/Vol] 20 U/L Normal 10-52 [facility] Comment on above: Result Comment: Nicolette ents treated with Sulfasalazine may generate falsely decreased results for ALT. Performed By: #### 2 4323-8 #### KALIN OSBORN ([id number]) [facility]) [address] [place] [address] 06297 Anion gap [Moles/Vol] 11 mmol/L Normal 10-20 [facility] Comment on above: Performed By: #### 2 4323-8 #### KALIN OSBORN ([id number]) [facility]) [address] [place] [address] 50851 AST With P-5'-P [Catalytic activity/Vol] 14 U/L Normal 9-39 [facility] Comment on above: Performed By: #### 2 432-8 #### KALIN OSBORN ([id number]) [facility]) [address] [place] [address] 96759 Bilirubin [Mass/Vol] 0.8 mg/dL Normal 0.0-1.2 [facility] Comment on above: Performed By: #### 2 432-8 #### KALIN OSBORN ([id number]) [facility]) [address] [place] [address] 23987 Calcium [Mass/Vol] 9.2 mg/dL Normal 8.6-10.3 [facility] Comment on above: Performed By: #### 2 4323-8 #### KALIN OSBORN ([id number]) [facility]) [address] [place] [address] 72879 Chloride [Moles/Vol] 105 mmol/L Normal 98-107 [facility] Comment on above: Performed By: #### 2 4323-8 #### KALIN OSBORN ([id number]) [facility]) [address] [place] [address] 64825 CO2 [Moles/Vol] 29 mmol/L Normal 21-32 [facility] Comment on above: Performed By: #### 2 4323-8 #### KALIN OSBORN ([id number]) [facility]) [address] [place] [address] 38826 Creatinine [Mass/Vol] 0.92 mg/dL Normal 0.50-1.30 [facility] Comment on above: Performed By: #### 2 4323-8 #### KALIN OSBORN ([id number]) [facility]) [address] [place] [address] 49417 Glomerular filtration rate/1.73 sq M.predicted 80 mL/min/1.73m*2 Normal >60 [facility] Comment on above: Result Comment: Calc ulations of estimated GFR are performed using the 2020 CKD-EPI Study Refit equation without the race variable for the IDMS-Traceable creatinine methods. https://jasn.asnjournals.org/content/early//ASN.13251 91790 Performed By: #### 2 432-8 #### KALIN OSBORN ([id number]) [facility]) [address] [place] [address] 12678 Glucose [Mass/Vol] 52 mg/dL Low 74-99 [facility] Comment on above: Performed By: #### 2 432-8 #### KALIN OSBORN ([id number]) [facility]) [address] [place] [address] 62380 Potassium [Moles/Vol] 4.0 mmol/L Normal 3.5-5.3 [facility] Comment on above: Performed By: #### 2 4322-8 #### KALIN OSBORN ([id number]) [facility]) [address] [place] [address] 37153 Protein [Mass/Vol] 6.2 g/dL Low 6.4-8.2 [facility] Comment on above: Performed By: #### 2 432-8 #### KALIN OSBORN ([id number]) [facility]) [address] [place] [address] 35855 Sodium [Moles/Vol] 141 mmol/L Normal 136-145 [facility] Comment on above: Performed By: #### 2 432-8 #### KALIN OSBORN ([id number]) [facility]) [address] [place] [address] 99771 Urea nitrogen [Mass/Vol] 30 mg/dL High 6- [facility] Comment on above: Performed By: #### 2 4323-8 #### KALIN OSBORN ([id number]) [facility]) [address] [place] [address] 31150 ECG 12 Leadon 09-01-2024 79 bpm, NSR, no ST/T cxhanges [facility] Work Phone: [facility] Work Phone: TSH WITH REFLEX TO FREE T4 I F ABNORMALon 09-01-2024 TSH Qn 2.99 m[IU]/L Normal 0.44-3.98 [facility] Comment on above: Order Comment: TSH t esting is performed using different testing methodology at [facility] than at other [facility]. Direct result comparisons should only be made within the same method. Performed By: #### T HYDS #### KALIN OSBORN ([id number]) [facility]) [address] [place], [place] [address] CBC W Auto Differential pane l (Bld)on 08-14-2024 Basophils (Bld) [#/Vol] 0.06 x10*3/uL Normal 0.00-0.10 [facility] Comment on above: Performed By: #### 5 7021-8 #### KALIN OSBORN ([id number]) [facility]) [address] [place] [address] 66544 Basophils/100 WBC (Bld) 0.6 % Normal 0.0-2.0 [facility] Comment on above: Performed By: #### 5 7021-8 #### KALIN OSBORN ([id number]) [facility]) [address] [place] [address] 70879 Eosinophils (Bld) [#/Vol] 0.14 x10*3/uL Normal 0.00-0.40 [facility] Comment on above: Performed By: #### 5 7021-8 #### KALIN OSBORN ([id number]) [facility]) [address] [place] [address] 13020 Eosinophils/100 WBC (Bld) 1.4 % Normal 0.0-6.0 [facility] Comment on above: Performed By: #### 5 7021-8 #### KALIN OSBORN ([id number]) [facility]) [address] [place] [address] 21961 Erythrocyte distribution width (RBC) [Ratio] 13.1 % Normal 11.5-14.5 [facility] Comment on above: Performed By: #### 5 7021-8 #### KALIN OSBORN ([id number]) [facility]) [address] [place] [address] 44948 Hematocrit (Bld) [Volume fraction] 40.2 % Low 41.0-52.0 [facility] Comment on above: Performed By: #### 5 7021-8 #### KALIN OSBORN ([id number]) [facility]) [address] [place] [address] 49818 Hemoglobin (Bld) [Mass/Vol] 13.0 g/dL Low 13.5-17.5 [facility] Comment on above: Performed By: #### 5 7021-8 #### KALIN OSBORN ([id number]) [facility]) [address] [place] [address] 86268 Immature granulocytes (Bld) [#/Vol] 0.05 x10*3/uL Normal 0.00-0.50 [facility] Comment on above: Performed By: #### 5 7021-8 #### KALIN OSBORN ([id number]) [facility]) [address] [place] [address] 62331 Immature granulocytes/100 WBC (Bld) 0.5 % Normal 0.0-0.9 [facility] Comment on above: Result Comment: Steph ture Granulocyte Count (IG) includes promyelocytes, myelocytes and metamyelocytes but does not include bands. Percent differential counts (%) should be interpreted in the context of the absolute cell counts (cells/UL). Performed By: #### 5 7021-8 #### KALIN OSBORN ([id number]) [facility]) [address] [place] [address] 47703 Lymphocytes (Bld) [#/Vol] 0.97 x10*3/uL Normal 0.80-3.00 [facility] Comment on above: Performed By: #### 7021-8 #### KALIN OSBORN ([id number]) [facility]) [address] [place] [address] 36784 Lymphocytes/100 WBC (Bld) 10.0 % Normal 13.0-44.0 [facility] Comment on above: Performed By: #### 7021-8 #### KALIN OSBORN ([id number]) [facility]) [address] [place] [address] 97756 MCH (RBC) [Entitic mass] 34.3 pg High 26.0-34.0 [facility] Comment on above: Performed By: #### 7021-8 #### KALIN OSBORN ([id number]) [facility]) [address] [place] [address] 67115 MCHC (RBC) [Mass/Vol] 32.3 g/dL Normal 32.0-36.0 [facility] Comment on above: Performed By: #### 5 7021-8 #### KALIN OSBORN ([id number]) [facility]) [address] [place] [address] 71987 MCV (RBC) [Entitic vol] 106 fL High 80-100 [facility] Comment on above: Performed By: #### 5 7021-8 #### KALIN OSBORN ([id number]) [facility]) [address] [place] [address] 12955 Monocytes (Bld) [#/Vol] 0.55 x10*3/uL Normal 0.05-0.80 [facility] Comment on above: Performed By: #### 5 7021-8 #### KALIN OSBORN ([id number]) [facility]) [address] [place] [address] Monocytes/100 WBC (Bld) 5.7 % Normal 2.0-10.0 [facility] Comment on above: Performed By: #### 5 7021-8 #### KALIN OSBORN ([id number]) [facility]) [address] [place] [address] 19356 Neutrophils (Bld) [#/Vol] 7.90 x10*3/uL High 1.60-5.50 [facility] Comment on above: Result Comment: Perc ent differential counts (%) should be interpreted in the context of the absolute cell counts (cells/uL). Performed By: #### 5 7021-8 #### KALIN OSBORN ([id number]) [facility]) [address] [place] [address] 52673 Neutrophils/100 WBC (Bld) 81.8 % Normal 40.0-80.0 [facility] Comment on above: Performed By: #### 5 7021-8 #### KALIN OSBORN ([id number]) [facility]) [address] [place] [address] 14940 Nucleated RBC/100 WBC (Bld) [Ratio] 0.0 /100 WBCs Normal 0.0-0.0 [facility] Comment on above: Performed By: #### 5 7021-8 #### KALIN OSBORN ([id number]) [facility]) [address] [place] [address] 61561 Platelets (Bld) [#/Vol] 249 x10*3/uL Normal 150-450 [facility] Comment on above: Performed By: #### 5 7021-8 #### KALIN OSBORN ([id number]) [facility]) [address] [place] [address] 13844 RBC (Bld) [#/Vol] 3.79 x10*6/uL Low 4.50-5.90 [facility] Comment on above: Performed By: #### 5 7021-8 #### KALIN OSBORN ([id number]) [facility]) [address] [place] [address] 38058 WBC (Bld) [#/Vol] 9.7 x10*3/uL Normal 4.4-11.3 [facility] Comment on above: Performed By: #### 5 7021-8 #### KALIN OSBORN ([id number]) [facility]) [address] [place] [address] Comprehensive metabolic 2000 panelon 08-14-2024 Albumin BCP dye [Mass/Vol] 4.0 g/dL Normal 3.4-5.0 [facility] Comment on above: Performed By: #### 2 4323-8 #### KALIN OSBORN ([id number]) [facility]) [address] [place] [address] 86493 ALP [Catalytic activity/Vol] 64 U/L Normal 33-136 [facility] Comment on above: Performed By: #### 2 4323-8 #### KALIN OSBORN ([id number]) [facility]) [address] [place] [address] 46782 ALT With P-5'-P [Catalytic activity/Vol] 15 U/L Normal 10-52 [facility] Comment on above: Result Comment: Nicolette ents treated with Sulfasalazine may generate falsely decreased results for ALT. Performed By: #### 2 4323-8 #### KALIN OSBORN ([id number]) [facility]) [address] [place] [address] 05463 Anion gap [Moles/Vol] 9 mmol/L Low 10-20 [facility] Comment on above: Performed By: #### 2 4323-8 #### KALIN OSBORN ([id number]) [facility]) [address] [place] [address] 15723 AST With P-5'-P [Catalytic activity/Vol] 15 U/L Normal 9-39 [facility] Comment on above: Performed By: #### 2 4323-8 #### KALIN OSBORN ([id number]) [facility]) [address] [place] [address] 67048 Bilirubin [Mass/Vol] 0.9 mg/dL Normal 0.0-1.2 [facility] Comment on above: Performed By: #### 2 4323-8 #### KALIN OSBORN ([id number]) [facility]) [address] [place] [address] Calcium [Mass/Vol] 8.8 mg/dL Normal 8.6-10.3 [facility] Comment on above: Performed By: #### 2 4323-8 #### KALIN OSBORN ([id number]) [facility]) [address] [place] [address] Chloride [Moles/Vol] 105 mmol/L Normal 98-107 [facility] Comment on above: Performed By: #### 2 4323-8 #### KALIN OSBORN ([id number]) [facility]) [address] [place] [address] 21800 CO2 [Moles/Vol] 30 mmol/L Normal 21-32 [facility] Comment on above: Performed By: #### 2 4323-8 #### KALIN OSBORN ([id number]) [facility]) [address] [place] [address] 89659 Creatinine [Mass/Vol] 0.91 mg/dL Normal 0.50-1.30 [facility] Comment on above: Performed By: #### 2 4323-8 #### KALIN OSBORN ([id number]) [facility]) [address] [place] [address] 21677 Glomerular filtration rate/1.73 sq M.predicted 81 mL/min/1.73m*2 Normal >60 [facility] Comment on above: Result Comment: Calc ulations of estimated GFR are performed using the 2020 CKD-EPI Study Refit equation without the race variable for the IDMS-Traceable creatinine methods. https://jasn.asnjournals.org/content/early/ASN.48783 06460 Performed By: #### 2 4323-8 #### KALIN OSBORN ([id number]) [facility]) [address] [place] [address] 48677 Glucose [Mass/Vol] 120 mg/dL High 74-99 [facility] Comment on above: Performed By: #### 2 4323-8 #### KALIN OSBORN (40551) [facility]) [address] [place] [address] 61102 Potassium [Moles/Vol] 4.2 mmol/L Normal 3.5-5.3 [facility] Comment on above: Performed By: #### 2 4323-8 #### KALIN OSBORN ([id number]) [facility]) [address] [place] [address] 05328 Protein [Mass/Vol] 5.5 g/dL Low 6.4-8.2 [facility] Comment on above: Performed By: #### 2 4323-8 #### KALIN OSBORN ([id number]) [facility]) [address] [place] [address] 57119 Sodium [Moles/Vol] 140 mmol/L Normal 136-145 [facility] Comment on above: Performed By: #### 2 4323-8 #### KALIN OSBORN ([id number]) [facility]) [address] [place] [address] 74554 Urea nitrogen [Mass/Vol] 22 mg/dL Normal 6-23 [facility] Comment on above: Performed By: #### 2 4323-8 #### KALIN OSBORN ([id number]) [facility]) [address] [place], [place] [address] TRANSTHORACIC ECHO (TTE) [facility] 07-31-2024 TRANSTHORACIC ECHO (TTE) [place] [address] [phone], TRANSTHORACIC ECHOCARDIOGRAM REPORT Patient Name: FAWN Lee Physician: [id number] Salcedo MD Study Date: 07/31/2024 Ordering Provider: Fab SALCEDO MRN/PID: [id number] Fellow: Nurse: Clemente Repp RN Date of /Age: 5 1935 / 89 years City Auditor: Howard Viveros [facility] Gender: M Additional Staff: Height: 167.64 cm Admit Date: Weight: 67.59 kg Admission Status: Outpatient BSA / BMI: 1.76 m2 / 24.05 Department Location: [facility] Echo Lab kg/m2 Blood Pressure: 112 /65 mmHg Study Type: TRANSTHORACIC ECHO (TTE) COMPLETE Diagnosis/ICD: Personal history of transient ischemic attack (TIA), 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 CPT Codes: Echo Complete w Full Doppler-34571 Study Detail: The following Echo studies were performed: 2D, M-Mode, Doppler and color flow. Agitated saline used as a contrast agent for intraseptal flow evaluation. PHYSICIAN INTERPRETATION: Left Ventricle: The left ventricular systolic function is normal, with a Tomlin's biplane calculated ejection fraction of 62%. There are no regional wall motion abnormalities. The left ventricular cavity size is normal. Spectral Doppler shows an impaired relaxation pattern of left ventricular diastolic filling. Left Atrium: The left atrium is normal in size. A bubble study using agitated saline was performed. Bubble study is negative. Right Ventricle: The right ventricle is mildly enlarged. There is normal right ventricular global systolic function. Right Atrium: The right atrium is normal in size. Aortic Valve: The aortic valve is trileaflet. The aortic valve dimensionless index is 0.65. There is mild aortic valve regurgitation. The peak instantaneous gradient of the aortic valve is 10.6 mmHg. The mean gradient of the aortic valve is 6.0 mmHg. Mitral Valve: The mitral valve is abnormal. There is mild mitral valve regurgitation. Tricuspid Valve: The tricuspid valve is structurally normal. There is mild tricuspid regurgitation. Pulmonic Valve: The pulmonic valve is not well visualized. There is mild pulmonic valve regurgitation. Pericardium: No pericardial effusion noted. Aorta: The aortic root is normal. Systemic Veins: The inferior vena cava appears normal in size, with IVC inspiratory collapse greater than 50%. In comparison to the previous echocardiogram(s): There are no prior studies on this patient for comparison purposes. CONCLUSIONS: 1. The left ventricular systolic function is normal, with a Tomlin's biplane calculated ejection fraction of 62%. 2. Spectral Doppler shows an impaired relaxation pattern of left ventricular diastolic filling. 3. There is normal right ventricular global systolic function. 4. Mildly enlarged right ventricle. 5. Mild aortic valve regurgitation. QUANTITATIVE DATA SUMMARY: 2D MEASUREMENTS: Normal Ranges: Ao Root d: 3.10 cm (2.0-3.7cm) LAs: 3.30 cm (2.7-4.0cm) IVSd: 1.12 cm (0.6-1.1cm) LVPWd: 1.06 cm (0.6-1.1cm) LVIDd: 4.18 cm (3.9-5.9cm) LVIDs: 2.59 cm LV Mass Index: 87.2 g/m2 LV % FS 38.0 % LA VOLUME: Normal Ranges: LA Vol A4C: 31.5 ml (22+/-6mL/m2) LA Vol A2C: 31.7 ml LA Vol BP: 31.7 ml LA Vol Index A4C: 17.9ml/m2 LA Vol Index A2C: 18.0 ml/m2 LA Vol Index BP: 18.0 ml/m2 LA Area A4C: 13.1 cm2 LA Area A2C: 13.2 cm2 LA Major [place] A4C: 4.6 cm LA Major [place] A2C: 4.7 cm LA Volume Index: 16.0 ml/m2 LA Vol A4C: 28.2 ml LA Vol A2C: 32.2 ml LA Vol Index BSA: 17.1 ml/m2 LV SYSTOLIC FUNCTION BY 2D PLANIMETRY (MOD): Normal Ranges: EF-A4C View: 61 % (>=55%) EF-A2C View: 63 % EF-Biplane: 62 % LV EF Reported: 62 % LV DIASTOLIC FUNCTION: Normal Ranges: MV Peak E: 0.56 m/s (0.7-1.2 m/s) MV Peak A: 0.74 m/s (0.42-0.7 m/s) E/A Ratio: 0.76 (1.0-2.2) MV e' 0.068 m/s (>8.0) MV lateral e' 0.08 m/s MV medial e' 0.06 m/s E/e' Ratio: 8.21 (<8.0) MITRAL VALVE: Normal Ranges: MV DT: 257 msec (150-240msec) AORTIC VALVE: Normal Ranges: AoV Vmax: 1.63 m/s (<=1.7m/s) AoV Peak P.6 mmHg (<20mmHg) AoV Mean P.0 mmHg (1.7-11.5mmHg) LVOT Max [place]u: 1.19 m/s (<=1.1m/s) AoV VTI: 37.60 cm (18-25cm) LVOT VTI: 24.30 cm LVOT Diameter: 1.90 cm (1.8-2.4cm) AoV Area, VTI: 1.83 cm2 (2.5-5.5cm2) AoV Area,Vmax: 2.07 cm2 (2.5-4.5cm2) AoV Dimensionless Index: 0.65 AORTIC INSUFFICIENCY: AI Vmax: 3.07 m/s AI Half-time: 693 msec AI Decel Rate: 130.00 cm/s2 RIGHT VENTRICLE: RV Basal 4.44 cm RV Mid 3.18 cm RV Major 7.2 cm TAPSE: 25.0 mm RV s' 0.13 m/s TRICUSPID VALVE/RVSP: Normal Ranges: Peak TR Velocity: 2.48 m/s RV Syst Pressure: 28 mmHg (< 30mmHg) [id number] Otoniel Salcedo MD Electronically signed on 07/31/2024 at 9:32:31 AM Final Normal [facility] US Heart TransthoracicOrdere d By: Otoniel Salcedo on 07-31-2024 Aortic Valve Area by Continuity of Peak Velocity 2.07 cm2 [facility] Work Phone: Aortic Valve Area by Continuity of VTI 1.83 cm2 [facility] Work Phone: AV mn grad 6.0 mmHg [facility] Work Phone: AV pk grad 10.6 mmHg [facility] Work Phone: AV pk neetu 1.63 m/s [facility] Work Phone: LA vol index A/L 18.0 ml/m2 [facility] Work Phone: LV A4C EF 61.1 [facility] Work Phone: LV Biplane EF 62 % [facility] Work Phone: LV EF 62 % [facility] Work Phone: LVIDd 4.18 cm [facility] Work Phone: LVOT diam 1.90 cm [facility] Work Phone: MV E/A ratio 0.76 [facility] Work Phone: RV free wall pk S' 12.80 cm/s [facility] Work Phone: RVSP 27.6 mmHg [facility] Work Phone: Tricuspid annular plane systolic excursion 2.5 cm [facility] Work Phone: [facility] Work Phone: [place] [address] [phone], TRANSTHORACIC ECHOCARDIOGRAM REPORT Patient Name: FAWN CAMERON Reading Physician: [id number] Salcedo MD Study Date: 07/31/2024 Ordering Provider: Fab SALCEDO MRN/PID: [id number] Fellow: Nurse: Clemente Brown RN Date of /Age: 5 1935 / 89 years City Auditor: Howard Viveros RDCS Gender: M Additional Staff: Height: 167.64 cm Admit Date: Weight: 67.59 kg Admission Status: Outpatient BSA / BMI: 1.76 m2 / 24.05 Department Location: [facility] Echo Lab kg/m2 Blood Pressure: 112 /65 mmHg Study Type: TRANSTHORACIC ECHO (TTE) COMPLETE Diagnosis/ICD: Personal history of transient ischemic attack (TIA), 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 Agitated saline used as a contrast agent for intraseptal flow evaluation. PHYSICIAN INTERPRETATION: Left Ventricle: The left ventricular systolic function is normal, with a Tomlin's biplane calculated ejection fraction of 62%. There are no regional wall motion abnormalities. The left ventricular cavity size is normal. Spectral Doppler shows an impaired relaxation pattern of left ventricular diastolic filling. Left Atrium: The left atrium is normal in size. A bubble study using agitated saline was performed. Bubble study is negative. Right Ventricle: The right ventricle is mildly enlarged. There is normal right ventricular global systolic function. Right Atrium: The right atrium is normal in size. Aortic Valve: The aortic valve is trileaflet. The aortic valve dimensionless index is 0.65. There is mild aortic valve regurgitation. The peak instantaneous gradient of the aortic valve is 10.6 mmHg. The mean gradient of the aortic valve is 6.0 mmHg. Mitral Valve: The mitral valve is abnormal. There is mild mitral valve regurgitation. Tricuspid Valve: The tricuspid valve is structurally normal. There is mild tricuspid regurgitation. Pulmonic Valve: The pulmonic valve is not well visualized. There is mild pulmonic valve regurgitation. Pericardium: No pericardial effusion noted. Aorta: The aortic root is normal. Systemic Veins: The inferior vena cava appears normal in size, with IVC inspiratory collapse greater than 50%. In comparison to the previous echocardiogram(s): There are no prior studies on this patient for comparison purposes. CONCLUSIONS: 1. The left ventricular systolic function is normal, with a Tomlin's biplane calculated ejection fraction of 62%. 2. Spectral Doppler shows an impaired relaxation pattern of left ventricular diastolic filling. 3. There is normal right ventricular global systolic function. 4. Mildly enlarged right ventricle. 5. Mild aortic valve regurgitation. QUANTITATIVE DATA SUMMARY: 2D MEASUREMENTS: Normal Ranges: Ao Root d: 3.10 cm (2.0-3.7cm) LAs: 3.30 cm (2.7-4.0cm) IVSd: 1.12 cm (0.6-1.1cm) LVPWd: 1.06 cm (0.6-1.1cm) LVIDd: 4.18 cm (3.9-5.9cm) LVIDs: 2.59 cm LV Mass Index: 87.2 g/m2 LV % FS 38.0 % LA VOLUME: Normal Ranges: LA Vol A4C: 31.5 ml (22+/-6mL/m2) LA Vol A2C: 31.7 ml LA Vol BP: 31.7 ml LA Vol Index A4C: 17.9ml/m2 LA Vol Index A2C: 18.0 ml/m2 LA Vol Index BP: 18.0 ml/m2 LA Area A4C: 13.1 cm2 LA Area A2C: 13.2 cm2 LA Major [place] A4C: 4.6 cm LA Major [place] A2C: 4.7 cm LA Volume Index: 16.0 ml/m2 LA Vol A4C: 28.2 ml LA Vol A2C: 32.2 ml LA Vol Index BSA: 17.1 ml/m2 LV SYSTOLIC FUNCTION BY 2D PLANIMETRY (MOD): Normal Ranges: EF-A4C View: 61 % (>=55%) EF-A2C View: 63 % EF-Biplane: 62 % LV EF Reported: 62 % LV DIASTOLIC FUNCTION: Normal Ranges: MV Peak E: 0.56 m/s (0.7-1.2 m/s) MV Peak A: 0.74 m/s (0.42-0.7 m/s) E/A Ratio: 0.76 (1.0-2.2) MV e' 0.068 m/s (>8.0) MV lateral e' 0.08 m/s MV medial e' 0.06 m/s E/e' Ratio: 8.21 (<8.0) MITRAL VALVE: Normal Ranges: MV DT: 257 msec (150-240msec) AORTIC VALVE: Normal Ranges: AoV Vmax: 1.63 m/s (<=1.7m/s) AoV Peak P.6 mmHg (<20mmHg) AoV Mean P.0 mmHg (1.7 (more content not included)... Otoniel Lim MD - 07/31/2024 [place] [address] [phone], TRANSTHORACIC ECHOCARDIOGRAM REPORT Patient Name: FAWN Lee Physician: Fab Salcedo MD Study Date: 07/31/2024 Ordering Provider: Fab SALCEDO MRN/PID: [id number] Fellow: Nurse: Clemente Repp RN Date of /Age: 5 1935 / 89 years City Auditor: Howard Viveros ANIL Gender: M Additional Staff: Height: 167.64 cm Admit Date: Weight: 67.59 kg Admission Status: Outpatient BSA / BMI: 1.76 m2 / 24.05 Department Location: [facility] Echo Lab kg/m2 Blood Pressure: 112 /65 mmHg Study Type: TRANSTHORACIC ECHO (TTE) COMPLETE Diagnosis/ICD: Personal history of transient ischemic attack (TIA), 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 Agitated saline used as a contrast agent for intraseptal flow evaluation. PHYSICIAN INTERPRETATION: Left Ventricle: The left ventricular systolic function is normal, with a Tomlin's biplane calculated ejection fraction of 62%. There are no regional wall motion abnormalities. The left ventricular cavity size is normal. Spectral Doppler shows an impaired relaxation pattern of left ventricular diastolic filling. Left Atrium: The left atrium is normal in size. A bubble study using agitated saline was performed. Bubble study is negative. Right Ventricle: The right ventricle is mildly enlarged. There is normal right ventricular global systolic function. Right Atrium: The right atrium is normal in size. Aortic Valve: The aortic valve is trileaflet. The aortic valve dimensionless index is 0.65. There is mild aortic valve regurgitation. The peak instantaneous gradient of the aortic valve is 10.6 mmHg. The mean gradient of the aortic valve is 6.0 mmHg. Mitral Valve: The mitral valve is abnormal. There is mild mitral valve regurgitation. Tricuspid Valve: The tricuspid valve is structurally normal. There is mild tricuspid regurgitation. Pulmonic Valve: The pulmonic valve is not well visualized. There is mild pulmonic valve regurgitation. Pericardium: No pericardial effusion noted. Aorta: The aortic root is normal. Systemic Veins: The inferior vena cava appears normal in size, with IVC inspiratory collapse greater than 50%. In comparison to the previous echocardiogram(s): There are no prior studies on this patient for comparison purposes. CONCLUSIONS: 1. The left ventricular systolic function is normal, with a Tomlin's biplane calculated ejection fraction of 62%. 2. Spectral Doppler shows an impaired relaxation pattern of left ventricular diastolic filling. 3. There is normal right ventricular global systolic function. 4. Mildly enlarged right ventricle. 5. Mild aortic valve regurgitation. QUANTITATIVE DATA SUMMARY: 2D MEASUREMENTS: Normal Ranges: Ao Root d: 3.10 cm (2.0-3.7cm) LAs: 3.30 cm (2.7-4.0cm) IVSd: 1.12 cm (0.6-1.1cm) LVPWd: 1.06 cm (0.6-1.1cm) LVIDd: 4.18 cm (3.9-5.9cm) LVIDs: 2.59 cm LV Mass Index: 87.2 g/m2 LV % FS 38.0 % LA VOLUME: Normal Ranges: LA Vol A4C: 31.5 ml (22+/-6mL/m2) LA Vol A2C: 31.7 ml LA Vol BP: 31.7 ml LA Vol Index A4C: 17.9ml/m2 LA Vol Index A2C: 18.0 ml/m2 LA Vol Index BP: 18.0 ml/m2 LA Area A4C: 13.1 cm2 LA Area A2C: 13.2 cm2 LA Major [place] A4C: 4.6 cm LA Major [place] A2C: 4.7 cm LA Volume Index: 16.0 ml/m2 LA Vol A4C: 28.2 ml LA Vol A2C: 32.2 ml LA Vol Index BSA: 17.1 ml/m2 LV SYSTOLIC FUNCTION BY 2D PLANIMETRY (MOD): Normal Ranges: EF-A4C View: 61 % (>=55%) EF-A2C View: 63 % EF-Biplane: 62 % LV EF Reported: 62 % LV DIASTOLIC FUNCTION: Normal Ranges: MV Peak E: 0.56 m/s (0.7-1.2 m/s) MV Peak A: 0.74 m/s (0.42-0.7 m/s) E/A Ratio: 0.76 (1.0-2.2) MV e' 0.068 m/s (>8.0) MV lateral e' 0.08 m/s MV medial e' 0.06 m/s E/e' Ratio: 8.21 (<8.0) MITRAL VALVE: Normal Ranges: MV DT: 257 msec (150-240msec) AORTIC VALVE: Normal Ranges: AoV Vmax: 1.63 m/s (<=1.7m/s) AoV Peak P.6 mmHg (<20mmHg) AoV Mean P.0 mmHg (1.7-11.5mmHg) LVOT Max Neetu: 1.19 m/s (<=1.1m/s) AoV VTI: 37.60 cm (18-25cm) LVOT VTI: 24.30 cm LVOT Diameter: 1.90 cm (1.8-2.4cm) AoV Area, VTI: 1.83 cm2 (2.5-5.5cm2) AoV Area,Vmax: 2.07 cm2 (2.5-4.5cm2) AoV Dimensionless Index: 0.65 AORTIC INSUFFICIENCY: AI Vmax: 3.07 m/s AI Half-time: 693 msec AI Decel Rate: 130.00 cm/s2 RIGHT VENTRICLE: RV Basal 4.44 cm RV Mid 3.18 cm RV Major 7.2 cm TAPSE: 25.0 mm RV s' 0.13 m/s TRICUSPID VALVE/RVSP: Normal Ranges: Peak TR Velocity: 2.48 m/s RV Syst Pressure: 28 mmHg (< 30mmHg) [id number] Otoniel Salcedo MD Electronically signed on 07/31/2024 at 9:32:31 AM Final [facility] Work Phone: MR LUMBAR SPINE WO IV CONTRA STon 07-29-2024 MR LUMBAR SPINE WO IV CONTRAST Interpreted By: David Cedillo, STUDY: MR LUMBAR SPINE WO IV CONTRAST; 07/29/2024 3:22 pm INDICATION: Signs/Symptoms:RADICU LOPATHY LUMBAR. COMPARISON: 10/06/2021 ACCESSION NUMBER(S): [id number] ORDERING CLINICIAN: MACK GALEANA TECHNIQUE: Sagittal STIR, sagittal T2, sagittal T1, axial T2, axial T1 weighted MRI images of the lumbar spine were obtained without intravenous contrast administration. 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 There is 2 mm of anterolisthesis of L3 on L4 and 2 mm of retrolisthesis of L1 on L2. There are degenerative signal changes and Schmorl's nodes noted along endplates within lumbar and visualized lower thoracic region. The visualized spinal cord demonstrates no signal abnormality within it. The conus medullaris is normally positioned terminating at the L1 level. There is diminished disc signal throughout the lumbar and visualized lower thoracic region along with loss of disc height most pronounced at the L1/2, L2/3 and L4/5 levels compatible with degenerative disc disease. At the L5/S1 level, there is a posterior disc bulge with superimposed left-sided disc herniation with extruded disc material extending caudally along the left posterior margin of the S1 vertebral body along with degenerative facet changes and ligamentum flavum hypertrophy. There is encroachment upon the lateral recesses left greater than right with impingement upon the left S1 nerve. There is severe right and moderate left-sided neural foraminal narrowing. At the L4/L5 level, there is posterior osteophytic spurring and posterior disc bulge along with hypertrophic degenerative facet changes and ligamentum flavum hypertrophy contributing to mild overall narrowing of the thecal sac within the spinal canal. There is severe left and moderate right-sided neural foraminal narrowing. At the L3/L4 level, there is 2 mm of anterolisthesis of L3 on L4, posterior osteophytic spurring and posterior disc bulge with a superimposed left-sided disc herniation with extruded disc material extending cranially along the left posterior margin of the L3 vertebral body which in combination with degenerative facet changes and ligamentum flavum hypertrophy contributes to moderate spinal canal narrowing. There is moderate encroachment upon the neural foramen bilaterally. At the L2/L3 level, there is posterior osteophytic spurring and posterior disc bulge along with degenerative facet changes and ligamentum flavum hypertrophy contributing to ezhr-rx-bogixulu spinal canal narrowing. There is iotu-[id number] encroachment upon the neural foramen bilaterally. At the L1/L2 level, there is 2 mm of retrolisthesis of L1 on L2, posterior osteophytic spurring along with degenerative facet changes and ligamentum flavum hypertrophy contributing to mild overall narrowing of the thecal sac within the spinal canal. There is moderate to severe left and mild right-sided neural foraminal narrowing. At the T12/L1 level, there is a posterior disc bulge with a superimposed right-sided disc herniation along with degenerative facet changes and mild ligamentum flavum hypertrophy. There is vpfq-av-ovdbggkx spinal canal narrowing. There is no significant neural foraminal narrowing. 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 There is 2 mm of anterolisthesis of L3 on L4 and 2 mm of retrolisthesis of L1 on L2. 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 MACRO: None. Signed by: David Cedillo 07/31/2024 9:50 AM Dictation workstation: [id number] [facility] MR PELVIS WO IV CONTRASTon 1 MR PELVIS WO IV CONTRAST Interpreted By: Clement Estevez, STUDY: MRI of the pelvis without IV contrast; 07/29/2024 3:22 pm INDICATION: Signs/Symptoms:RADICU LOPATHY LUMBAR. ,M54.16 Radiculopathy, lumbar region COMPARISON: None. ACCESSION NUMBER(S): [id number] ORDERING CLINICIAN: MACK GALEANA TECHNIQUE: MR imaging of the musculoskeletal pelvis was obtained without administration of intravenous contrast medium. FINDINGS: TENDONS: The insertions of the gluteus medius and gluteus minimus tendons are intact bilaterally. The insertions of the iliopsoas tendons are intact bilaterally. The adductor and hamstring tendon origins are intact bilaterally. JOINTS: There is severe cartilage loss with marrow reactive changes and osteophyte formation in the right hip joint. There is a small amount of joint fluid in the right hip. No erosions seen. The SI joints demonstrate mild osteophytosis bilaterally. There is mild osteophytosis in the pubic symphysis as well. The patient is status post left total hip arthroplasty. No abnormal signal at the bone metal interface suggest evidence of hardware failure. There is no large effusion. There is no trochanteric bursitis There is severe spondylotic changes in the lumbar spine best seen on dedicated MRI performed the same day. OSSEOUS STRUCTURES: No focal marrow replacing lesions are identified. There is no fracture. SOFT TISSUES: No muscle atrophy or tear is seen. The sciatic nerves are intact and unremarkable. INTERNAL ORGANS: Evaluation of the internal organs of the pelvis is limited on this study tailored for evaluation of the musculoskeletal system. No gross abnormality is seen in the pelvic organs. IMPRESSION: 1. Severe right hip osteoarthritis. 2. No evidence of hardware for about the left total hip arthroplasty. 3. Severe spondylosis best seen on MRI of the lumbar spine performed the same day I personally reviewed the images/study and I agree with the findings as stated. This study was interpreted at [facility], [place], [place]. MACRO: None Signed by: Clement Estevez 07/30/2024 12:15 PM Dictation workstation: [id number] Normal [facility] US.doppler Aorta and Iliac a rtery - reinaldoon 06-17-2024 [place] [address] [phone], Vascular Lab Report VAS US AORTA ILIAC DUPLEX COMPLETE Patient Name: FAWN CAMERON Reading Physician: [id number] Miller Abdalla MD, RPVI Study Date: 06/17/2024 Ordering Provider: [id number] DON BARRERA MRN/PID: [id number] Fellow: Technologist: Annamaria Cornejo RVT/AB Date of /Age: 5 1935 / 89 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: Gender: M Admission Status: Outpatient Location Performed: [facility] Diagnosis/ICD: Abdominal aortic aneurysm, without rupture, unspecified-I71.40 CPT Codes: 66693 Duplex Aorta/IVC/Iliac/Bypas s Graft CONCLUSIONS: Aorta/Common Iliac Arteries/IVC: 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 A medium amount of mural thrombus is noted within the aneurysm. Mid and Distal AAA seen as follows; MID: 3.8 x 3.2 x 3.5cm DISTAL: 3.2 x 3.1 x 3.0cm Previous maximal diameter distally was 3.6cm in 2021. Imaging & Doppler Findings: AORTA AP Lateral PSV Proximal 2.10 cm 2.10 cm 77.1 cm/s Mid 3.20 cm 3.80 cm 81.9 cm/s Distal 3.10 cm 3.20 cm 43.3 cm/s RIGHT AP Lateral PSV LAUREN Proximal 1.40 cm 1.30 cm 176.00 cm/s LEFT AP Lateral PSV LAUREN Proximal 1.40 cm 1.30 cm 142.00 cm/s [id number] Miller Abdalla MD, RPLUIS Final Miller Ramirez MD - 06/17/2024 [place] [address] [phone], Vascular Lab Report [facility] US AORTA ILIAC DUPLEX COMPLETE Patient Name: FAWN Leigh NISHA Reading Physician: [id number] SILVANA Hudosn MD Study Date: 06/17/2024 Ordering Provider: [id number] DON BARRERA MRN/PID: [id number] Fellow: Technologist: Annamaria Cornejo RVT/AB Date of /Age: 5 1935 / 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: Gender: M Admission Status: Outpatient Location Performed: [facility] Diagnosis/ICD: Abdominal aortic aneurysm, without rupture, unspecified-I71.40 CPT Codes: 76975 Duplex Aorta/IVC/Iliac/Bypas s Graft CONCLUSIONS: Aorta/Common Iliac Arteries/IVC: 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 A medium amount of mural thrombus is noted within the aneurysm. Mid and Distal AAA seen as follows; MID: 3.8 x 3.2 x 3.5cm DISTAL: 3.2 x 3.1 x 3.0cm Previous maximal diameter distally was 3.6cm in 2021. Imaging & Doppler Findings: AORTA AP Lateral PSV Proximal 2.10 cm 2.10 cm 77.1 cm/s Mid 3.20 cm 3.80 cm 81.9 cm/s Distal 3.10 cm 3.20 cm 43.3 cm/s RIGHT AP Lateral PSV LAUREN Proximal 1.40 cm 1.30 cm 176.00 cm/s LEFT AP Lateral PSV LAUREN Proximal 1.40 cm 1.30 cm 142.00 cm/s [id number] SILVANA Hudson MD Final [facility] Work Phone: Radiology Study observation (narrative) [facility] Work Phone: US.doppler Aorta and Iliac a rtery - bilateralOrdered By: Miller Abdalla on 06-17-2024 [facility] Work Phone: VASC US AORTA ILIAC DUPLEX C OMPLETEon 06-17-2024 VASC US AORTA [place]IAC [place] [address] ext-[phone], Vascular Lab Report VAS US AORTA ILIAC DUPLEX COMPLETE Patient Name: FAWN CAMERON Reading Physician: [id number] Miller Abdalla MD, SILVANA Study Date: 06/17/2024 Ordering Provider: [id number] DON BARRERA MRN/PID: [id number] Fellow: Technologist: Annamaria Cornejo RVT/ Date of /Age: 5 1935 / 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: Gender: M Admission Status: Outpatient Location Performed: [facility] Diagnosis/ICD: Abdominal aortic aneurysm, without rupture, unspecified-I71.40 CPT Codes: 14826 Duplex Aorta/IVC/Iliac/Bypas s Graft CONCLUSIONS: Aorta/Common Iliac Arteries/IVC: 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 A medium amount of mural thrombus is noted within the aneurysm. Mid and Distal AAA seen as follows; MID: 3.8 x 3.2 x 3.5cm DISTAL: 3.2 x 3.1 x 3.0cm Previous maximal diameter distally was 3.6cm in 2021. Imaging & Doppler Findings: AORTA AP Lateral PSV Proximal 2.10 cm 2.10 cm 77.1 cm/s Mid 3.20 cm 3.80 cm 81.9 cm/s Distal 3.10 cm 3.20 cm 43.3 cm/s RIGHT AP Lateral PSV LAUREN Proximal 1.40 cm 1.30 cm 176.00 cm/s LEFT AP Lateral PSV LAUREN Proximal 1.40 cm 1.30 cm 142.00 cm/s [id number] Miller Abdalla MD, SILVANA Final Normal [facility] XR HIP LEFT WITH PELVIS WHEN PERFORMED 2 OR 3 VIEWSon 06-12-2024 XR HIP LEFT WITH PELVIS WHEN PERFORMED 2 OR 3 VIEWS Interpreted By: Cheryle Park, STUDY: Single view pelvis. Left hip, two views. INDICATION: Signs/Symptoms:pain COMPARISON: None. ACCESSION NUMBER(S): [id number] ORDERING CLINICIAN: DON BARRERA FINDINGS: No acute fracture or malalignment. Patient is status post left total hip arthroplasty. No perihardware fractures or lucencies. Alignment is anatomic. Severe right hip osteoarthrosis with joint space loss and osteophytes. Advanced degenerative changes of the visualized lumbar spine. Bilateral femoral artery vascular calcifications. IMPRESSION: 1. Left total hip arthroplasty without hardware complication. 2. Severe right hip osteoarthrosis and advanced lumbar spine degenerative changes MACRO: None. Signed by: Cheryle Park 06/14/2024 10:29 PM Dictation workstation: [id number] [facility] OCT MACULA CIRRUS OU (BOTH E YES)on 03-05-2024 [facility] Radiology Study observation (narrative) [facility] CBC W Auto Differential pane l (Bld)on 12-07-2023 Basophils (Bld) [#/Vol] 0.06 10*3/uL [facility] Basophils/100 WBC (Bld) 0.6 % 0.0 - 2.0 % [facility] Eosinophils (Bld) [#/Vol] 0.11 10*3/uL [facility] Eosinophils/100 WBC (Bld) 1.0 % 0.0 - 6.0 % [facility] Erythrocyte distribution width (RBC) [Ratio] 12.9 % 11.5 - 14.5 % [facility] Hematocrit (Bld) [Volume fraction] 44.5 % 41.0 - 52.0 % [facility] Hemoglobin (Bld) [Mass/Vol] 14.8 g/dL 13.5 - 17.5 g/dL [facility] Immature granulocytes (Bld) [#/Vol] 0.06 10*3/uL [facility] Immature granulocytes/100 WBC (Bld) 0.6 % 0.0 - 0.9 % [facility] Comment on above: Immature Granulocyte Count (IG) includes promyelocytes, myelocytes and metamyelocytes but does not include bands. Percent differential counts (%) should be interpreted in the context of the absolute cell counts (cells/UL). Interpretation and review of laboratory results Abnormal [facility] Lymphocytes (Bld) [#/Vol] 0.97 10*3/uL [facility] Lymphocytes/100 WBC (Bld) 9.2 % 13.0 - 44.0 % [facility] MCH (RBC) [Entitic mass] 33.8 pg 26.0 - 34.0 pg [facility] MCHC (RBC) [Mass/Vol] 33.3 g/dL 32.0 - 36.0 g/dL [facility] MCV (RBC) [Entitic vol] 102 fL High 80 - 100 fL [facility] Monocytes (Bld) [#/Vol] 0.87 10*3/uL High [facility] Monocytes/100 WBC (Bld) 8.3 % 2.0 - 10.0 % [facility] Neutrophils (Bld) [#/Vol] 8.44 10*3/uL High [facility] Comment on above: Percent differential counts (%) should be interpreted in the context of the absolute cell counts (cells/uL). Neutrophils/100 WBC (Bld) 80.3 % 40.0 - 80.0 % [facility] Nucleated RBC/100 WBC (Bld) [Ratio] 0.0 % [facility] Platelets (Bld) [#/Vol] 298 10*3/uL [facility] RBC (Bld) [#/Vol] 4.38 10*6/uL Low [facility] WBC (Bld) [#/Vol] 10.5 10*3/uL [facility] 2000 panelon 12-07-2023 Albumin BCP dye [Mass/Vol] 4.4 g/dL 3.4 - 5.0 g/dL [facility] ALP [Catalytic activity/Vol] 76 U/L 33 - 136 U/L [facility] ALT With P-5'-P [Catalytic activity/Vol] 15 U/L 10 - 52 U/L [facility] Comment on above: Patients treated wit h Sulfasalazine may generate falsely decreased results for ALT. Anion gap [Moles/Vol] 13 mmol/L 10 - 2 0 mmol/L [facility] AST With P-5'-P [Catalytic activity/Vol] 17 U/L 9 - 39 U/L [facility] Bilirubin [Mass/Vol] 0.6 mg/dL 0.0 - 1 .2 mg/dL [facility] Calcium [Mass/Vol] 8.9 mg/dL 8.6 - 10. 3 mg/dL [facility] Chloride [Moles/Vol] 102 mmol/L 98 - 10 7 mmol/L [facility] CO2 [Moles/Vol] 24 mmol/L 21 - 32 mmol/L [facility] Creatinine [Mass/Vol] 0.93 mg/dL 0.50 - 1.30 mg/dL [facility] GFR/1.73 sq M.predicted among non-blacks MDRD (S/P/Bld) [Vol rate/Area] 79 mL/min/{1.73_m2} - PINF [facility] Comment on above: Calculations of leonides mated GFR are performed using the 2020 CKD-EPI Study Refit equation without the race variable for the IDMS-Traceable creatinine methods. https://jasn.asnjournals.org/content//ASN.15901 10662 Glucose [Mass/Vol] 96 mg/dL 74 - 99 mg/dL [facility] Interpretation and review of laboratory results Abnormal [facility] Potassium [Moles/Vol] 3.9 mmol/L 3.5 - 5.3 mmol/L [facility] Protein [Mass/Vol] 6.6 g/dL 6.4 - 8.2 g/dL [facility] Sodium [Moles/Vol] 135 mmol/L Low 136 - 145 mmol/L [facility] Urea nitrogen [Mass/Vol] 22 mg/dL 6 - 23 mg/dL [facility] MR Brain WO contraston 12-07 No acute infarct, intracranial mass effect or midline shift. 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 I personally reviewed the images/study and I agree with the findings as stated by Dr. Cabrera. MACRO: None Signed by: Kvng Meléndez 12/07/2023 12:24 PM Dictation workstation: [id number] Interpreted By: Kvng Meléndez and Muddasani Dheeraj STUDY: MR BRAIN WO IV CONTRAST; 12/07/2023 11:21 am INDICATION: Signs/Symptoms:dizzin ess. COMPARISON: CT of the head 11/15/2023. MRI of the brain 01/25/2021. ACCESSION NUMBER(S): [id number] ORDERING CLINICIAN: CELSO CABEZAS TECHNIQUE: Noncontrast axial T2, FLAIR, DWI, gradient echo T2 and T1 weighted images of the brain were acquired. FINDINGS: Images are somewhat degraded by motion. CSF Spaces: Ventricles, sulci and basal cisterns are diffusely prominent commensurate with moderate parenchymal volume loss. No abnormal extra-axial collection Parenchyma: No restricted diffusion to suggest acute infarction. Moderate burden of nonspecific T2 and FLAIR hyperintense signal throughout the supratentorial white matter and benjamin are compatible with small-vessel ischemic change, similar to previous MRI dated 01/25/2021.. No evidence of intracranial hemorrhage. No mass effect or midline shift. Paranasal Sinuses and Mastoids: Mucosal thickening is scattered throughout the visualized paranasal sinuses. Mastoid air cells are clear. Major intracranial flow voids are patent. Bilateral lenses have been surgically replaced. [facility] Kvng Meléndez MD - 12/07/2023 Interpreted By: Kvng Meléndez and Muddasani Dheeraj STUDY: MR BRAIN WO IV CONTRAST; 12/07/2023 11:21 am INDICATION: Signs/Symptoms:dizzin ess. COMPARISON: CT of the head 11/15/2023. MRI of the brain 01/25/2021. ACCESSION NUMBER(S): [id number] ORDERING CLINICIAN: CELSO CABEZAS TECHNIQUE: Noncontrast axial T2, FLAIR, DWI, gradient echo T2 and T1 weighted images of the brain were acquired. FINDINGS: Images are somewhat degraded by motion. CSF Spaces: Ventricles, sulci and basal cisterns are diffusely prominent commensurate with moderate parenchymal volume loss. No abnormal extra-axial collection Parenchyma: No restricted diffusion to suggest acute infarction. Moderate burden of nonspecific T2 and FLAIR hyperintense signal throughout the supratentorial white matter and benjamin are compatible with small-vessel ischemic change, similar to previous MRI dated 01/25/2021.. No evidence of intracranial hemorrhage. No mass effect or midline shift. Paranasal Sinuses and Mastoids: Mucosal thickening is scattered throughout the visualized paranasal sinuses. Mastoid air cells are clear. Major intracranial flow voids are patent. Bilateral lenses have been surgically replaced. IMPRESSION: No acute infarct, intracranial mass effect or midline shift. 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 I personally reviewed the images/study and I agree with the findings as stated by Dr. Cabrera. MACRO: None Signed by: Kvng Meléndez 12/07/2023 12:24 PM Dictation workstation: [id number] [facility] Work Phone: Radiology Study observation (narrative) [facility] Work Phone: MR Brain WO contrastOrdered By: Kvng Meléndez on 12-07-2023 [facility] Work Phone: Tropinin I.cardiac panel Hig h sensitivity methodon 12-07-2023 Interpretation and review of laboratory results Normal [facility] Less than 99th percentile of normal range cutoff- Female and children under 18 years old <14 ng/L; Male <21 ng/L: Negative Repeat testing should be performed if clinically indicated. Female and children under 18 years old 14-50 ng/L; Male 21-50 ng/L: Consistent with possible cardiac damage and possible increased clinical risk. Serial measurements may help to assess extent of myocardial damage. >50 ng/L: Consistent with cardiac damage, increased clinical risk and myocardial infarction. Serial measurements may help assess extent of myocardial damage. NOTE: Children less than 1 year old may have higher baseline troponin levels and results should be interpreted in conjunction with the overall clinical context. NOTE: Troponin I testing is performed using a different testing methodology at [facility] than at other [facility]. Direct result comparisons should only be made within the same method. [facility] Troponin I, High Sensitivity on 12-07-2023 Tropinin I.cardiac panel High sensitivity method 6 ng/L 0 - 20 ng/L [facility] Urinalysis complete W Reflex Culture panel (U)Ordered By: Erica Villa on 12-07-2023 Appearance (U) Clear Clear [facility] Bilirubin (U) [Mass/Vol] Negative NEGATIVE [facility] Color (U) Straw Straw, Yellow [facility] Glucose Auto test strip (U) [Mass/Vol] Negative NEGATIVE mg/dL [facility] Interpretation and review of laboratory results Normal [facility] Ketones (U) [Mass/Vol] Negative NEGAT DERRELL mg/dL [facility] Leukocyte esterase Auto test strip Ql (U) Negative NEGATIVE [facility] Nitrite Auto test strip Ql (U) Negative NEGATIVE [facility] pH (U) 7.0 [pH] 5.0, 5.5, 6.0, 6.5, 7.0, 7.5, 8.0 [facility] Protein (U) [Mass/Vol] Negative NEGAT DERRELL mg/dL [facility] RBC (U) [#/Vol] Negative NEGATIVE [facility] Specific gravity (U) [Rel density] 1.006 1.005 - 1.035 [facility] Urobilinogen (U) [Mass/Vol] mg/dL NINF - 2.0 mg/dL [facility] CBC W Auto Differential pane l (Bld)on 11-15-2023 Basophils (Bld) [#/Vol] 0.04 10*3/uL [facility] Basophils/100 WBC (Bld) 0.5 % 0.0 - 2.0 % [facility] Eosinophils (Bld) [#/Vol] 0.13 10*3/uL [facility] Eosinophils/100 WBC (Bld) 1.7 % 0.0 - 6.0 % [facility] Erythrocyte distribution width (RBC) [Ratio] 12.7 % 11.5 - 14.5 % [facility] Hematocrit (Bld) [Volume fraction] 41.2 % 41.0 - 52.0 % [facility] Hemoglobin (Bld) [Mass/Vol] 13.8 g/dL 13.5 - 17.5 g/dL [facility] Immature granulocytes (Bld) [#/Vol] 0.02 10*3/uL [facility] Immature granulocytes/100 WBC (Bld) 0.3 % 0.0 - 0.9 % [facility] Comment on above: Immature Granulocyte Count (IG) includes promyelocytes, myelocytes and metamyelocytes but does not include bands. Percent differential counts (%) should be interpreted in the context of the absolute cell counts (cells/UL). Interpretation and review of laboratory results Abnormal [facility] Lymphocytes (Bld) [#/Vol] 1.09 10*3/uL [facility] Lymphocytes/100 WBC (Bld) 14.2 % 13.0 - 44.0 % [facility] MCH (RBC) [Entitic mass] 33.8 pg 26.0 - 34.0 pg [facility] MCHC (RBC) [Mass/Vol] 33.5 g/dL 32.0 - 36.0 g/dL [facility] MCV (RBC) [Entitic vol] 101 fL High 80 - 100 fL [facility] Monocytes (Bld) [#/Vol] 0.60 10*3/uL [facility] Monocytes/100 WBC (Bld) 7.8 % 2.0 - 10.0 % [facility] Neutrophils (Bld) [#/Vol] 5.77 10*3/uL High [facility] Comment on above: Percent differential counts (%) should be interpreted in the context of the absolute cell counts (cells/uL). Neutrophils/100 WBC (Bld) 75.5 % 40.0 - 80.0 % [facility] Nucleated RBC/100 WBC (Bld) [Ratio] 0.0 % [facility] Platelets (Bld) [#/Vol] 202 10*3/uL [facility] Comment on above: Platelet count verif ied by smear review. RBC (Bld) [#/Vol] 4.08 10*6/uL [facility] WBC (Bld) [#/Vol] 7.7 10*3/uL [facility] CT Head WO contraston 2023 No evidence of acute cortical infarct or intracranial hemorrhage. No evidence of intracranial hemorrhage or displaced skull fracture. MACRO: None Signed by: Gera Grove 11/15/2023 5:02 PM Dictation workstation: [id number] [facility] Interpreted By: Gera Grove, STUDY: CT HEAD WO IV CONTRAST; 11/15/2023 4:58 pm INDICATION: Signs/Symptoms:foggy/ dizzy. COMPARISON: 03/10/2023 ACCESSION NUMBER(S): [id number] ORDERING CLINICIAN: BHARGAVI FELICIANO TECHNIQUE: Noncontrast axial CT scan of head was performed. Angled reformats in brain and bone windows were generated. The images were reviewed in bone, brain, blood and soft tissue windows. FINDINGS: The ventricles, cisterns and sulci are prominent, consistent with moderate diffuse volume loss. There are areas of nonspecific white matter hypodensity, which are probably age-related or microvascular in nature. Callaway-white differentiation is intact and there is no evidence of acute cortical infarct. No mass, mass effect or midline shift is seen. There is no evidence of hemorrhage. Paranasal sinuses and mastoids: Visualized paranasal sinuses and mastoids are remarkable for mucosal thickening of the left maxillary sinus. [facility] Gera Grove MD - 11/15/2023 Interpreted By: Gera Grove, STUDY: CT HEAD WO IV CONTRAST; 11/15/2023 4:58 pm INDICATION: Signs/Symptoms:foggy/ dizzy. COMPARISON: 03/10/2023 ACCESSION NUMBER(S): [id number] ORDERING CLINICIAN: BHARGAVI FELICIANO TECHNIQUE: Noncontrast axial CT scan of head was performed. Angled reformats in brain and bone windows were generated. The images were reviewed in bone, brain, blood and soft tissue windows. FINDINGS: The ventricles, cisterns and sulci are prominent, consistent with moderate diffuse volume loss. There are areas of nonspecific white matter hypodensity, which are probably age-related or microvascular in nature. Callaway-white differentiation is intact and there is no evidence of acute cortical infarct. No mass, mass effect or midline shift is seen. There is no evidence of hemorrhage. Paranasal sinuses and mastoids: Visualized paranasal sinuses and mastoids are remarkable for mucosal thickening of the left maxillary sinus. IMPRESSION: No evidence of acute cortical infarct or intracranial hemorrhage. No evidence of intracranial hemorrhage or displaced skull fracture. MACRO: None Signed by: Gera Grove 11/15/2023 5:02 PM Dictation workstation: [id number] [facility] Work Phone: Radiology Study observation (narrative) [facility] Work Phone: CT Head WO contrastOrdered B y: Gera Grove on 11-15-2023 [facility] Work Phone: Comprehensive metabolic 2000 panelon 11-15-2023 Albumin BCP dye [Mass/Vol] 4.4 g/dL 3.4 - 5.0 g/dL [facility] ALP [Catalytic activity/Vol] 69 U/L 33 - 136 U/L [facility] ALT With P-5'-P [Catalytic activity/Vol] 14 U/L 10 - 52 U/L [facility] Comment on above: Patients treated wit h Sulfasalazine may generate falsely decreased results for ALT. Anion gap [Moles/Vol] 11 mmol/L 10 - 2 0 mmol/L [facility] AST With P-5'-P [Catalytic activity/Vol] 19 U/L 9 - 39 U/L [facility] Bilirubin [Mass/Vol] 0.7 mg/dL 0.0 - 1 .2 mg/dL [facility] Calcium [Mass/Vol] 8.8 mg/dL 8.6 - 10. 3 mg/dL [facility] Chloride [Moles/Vol] 106 mmol/L 98 - 10 7 mmol/L [facility] CO2 [Moles/Vol] 26 mmol/L 21 - 32 mmol/L [facility] Creatinine [Mass/Vol] 0.91 mg/dL 0.50 - 1.30 mg/dL [facility] GFR/1.73 sq M.predicted among non-blacks MDRD (S/P/Bld) [Vol rate/Area] 82 mL/min/{1.73_m2} - PINF [facility] Comment on above: Calculations of leonides mated GFR are performed using the 2020 CKD-EPI Study Refit equation without the race variable for the IDMS-Traceable creatinine methods. https://jasn.asnjournals.org/content//ASN.89564 08331 Glucose [Mass/Vol] 90 mg/dL 74 - 99 mg/dL [facility] Interpretation and review of laboratory results Abnormal [facility] Potassium [Moles/Vol] 4.1 mmol/L 3.5 - 5.3 mmol/L [facility] Protein [Mass/Vol] 6.3 g/dL Low 6.4 - 8.2 g/dL [facility] Sodium [Moles/Vol] 139 mmol/L 136 - 145 mmol/L [facility] Urea nitrogen [Mass/Vol] 18 mg/dL 6 - 23 mg/dL [facility] Glucose Test strip manual (B ld) [Mass/Vol]on 11-15-2023 Glucose [Mass/Vol] 96 mg/dL 74 - 99 mg/dL [facility] Interpretation and review of laboratory results Normal [facility] Influenza virus A and B and SARS-CoV-2 (COVID-19) identified DONY+probe Nom (Resp)on 11-15-2023 FLUAV RNA DONY+probe Ql (Resp) Not detected Not Detected [facility] FLUBV RNA DONY+probe Ql (Resp) Not detected Not Detected [facility] Interpretation and review of laboratory results Normal [facility] SARS-CoV-2 (COVID-19) RNA DONY+probe Ql (Resp) Not detected Not Detected [facility] This assay has received FDA Emergency Use Authorization (EUA) and is only authorized for the duration of time that circumstances exist to justify the authorization of the emergency use of in vitro diagnostic tests for the detection of SARS-CoV-2 virus and/or diagnosis of COVID-19 infection under section 564(b)(1) of the Act, 21 U.S.C. 360bbb-3(b)(1). Testing for SARS-CoV-2 is only recommended for patients who meet current clinical and/or epidemiological criteria as defined by federal, state, or local public health directives. This assay is an in vitro diagnostic nucleic acid amplification test for the qualitative detection of SARS-CoV-2, Influenza A, and Influenza B from nasopharyngeal specimens and has been validated for use at [facility]. Negative results do not preclude COVID-19 infections or Influenza A/B infections, and should not be used as the sole basis for diagnosis, treatment, or other management decisions. If Influenza A/B and RSV PCR results are negative, testing for Parainfluenza virus, Adenovirus and Metapneumovirus is routinely performed for [facility] pediatric oncology and intensive care inpatients, and is available on other patients by placing an add-on request. [facility] Magnesiumon 11-15-2023 Magnesium [Mass/Vol] 1.95 mg/dL 1.60 - 2.40 mg/dL [facility] Magnesium [Mass/Vol]on 11-15 Interpretation and review of laboratory results Normal [facility] No Panel Informationon 11-15 [facility] Interpretation and review of laboratory results Normal [facility] PT Coag (PPP) [Time]on 11-15 INR Coag (PPP) [Relative time] 1.1 {INR} 0.9 - 1.1 [facility] Protime-INRon 11-15-2023 PT Coag (PPP) [Time] 12.0 s [facility] Tropinin I.cardiac panel Hig h sensitivity methodon 11-15-2023 Interpretation and review of laboratory results Normal [facility] Less than 99th percentile of normal range cutoff- Female and children under 18 years old <14 ng/L; Male <21 ng/L: Negative Repeat testing should be performed if clinically indicated. Female and children under 18 years old 14-50 ng/L; Male 21-50 ng/L: Consistent with possible cardiac damage and possible increased clinical risk. Serial measurements may help to assess extent of myocardial damage. >50 ng/L: Consistent with cardiac damage, increased clinical risk and myocardial infarction. Serial measurements may help assess extent of myocardial damage. NOTE: Children less than 1 year old may have higher baseline troponin levels and results should be interpreted in conjunction with the overall clinical context. NOTE: Troponin I testing is performed using a different testing methodology at [facility] than at other [facility]. Direct result comparisons should only be made within the same method. [facility] Interpretation and review of laboratory results Normal [facility] Less than 99th percentile of normal range cutoff- Female and children under 18 years old <14 ng/L; Male <21 ng/L: Negative Repeat testing should be performed if clinically indicated. Female and children under 18 years old 14-50 ng/L; Male 21-50 ng/L: Consistent with possible cardiac damage and possible increased clinical risk. Serial measurements may help to assess extent of myocardial damage. >50 ng/L: Consistent with cardiac damage, increased clinical risk and myocardial infarction. Serial measurements may help assess extent of myocardial damage. NOTE: Children less than 1 year old may have higher baseline troponin levels and results should be interpreted in conjunction with the overall clinical context. NOTE: Troponin I testing is performed using a different testing methodology at [facility] than at other [facility]. Direct result comparisons should only be made within the same method. [facility] Troponin I, High Sensitivity , Initialon 11-15-2023 Tropinin I.cardiac panel High sensitivity method 4 ng/L 0 - 20 ng/L [facility] Troponin, High Sensitivity, 1 Houron 11-15-2023 Tropinin I.cardiac panel High sensitivity method 5 ng/L 0 - 20 ng/L [facility] Urinalysis complete W Reflex Culture panel (U)on 11-15-2023 Appearance (U) Clear Clear [facility] Bilirubin (U) [Mass/Vol] Negative NEGATIVE [facility] Color (U) Straw Straw, Yellow [facility] Glucose Auto test strip (U) [Mass/Vol] Negative NEGATIVE mg/dL [facility] Interpretation and review of laboratory results Normal [facility] Ketones (U) [Mass/Vol] Negative NEGAT DERRELL mg/dL [facility] Leukocyte esterase Auto test strip Ql (U) Negative NEGATIVE [facility] Nitrite Auto test strip Ql (U) Negative NEGATIVE [facility] pH (U) 7.0 [pH] 5.0, 5.5, 6.0, 6.5, 7.0, 7.5, 8.0 [facility] Protein (U) [Mass/Vol] Negative NEGAT DERRELL mg/dL [facility] RBC (U) [#/Vol] Negative NEGATIVE [facility] Specific gravity (U) [Rel density] 1.005 1.005 - 1.035 [facility] Urobilinogen (U) [Mass/Vol] mg/dL NINF - 2.0 mg/dL [facility] XR Chest Single viewon 11-15 1. No evidence of acute cardiopulmonary process. Signed by: Aung Julien 11/15/2023 5:18 PM Dictation workstation: [id number] [facility] Interpreted By: Aung Julien, STUDY: XR CHEST 1 VIEW; 11/15/2023 5:06 pm INDICATION: Signs/Symptoms:Chest Pain. COMPARISON: Chest radiograph 11/11/2023 ACCESSION NUMBER(S): [id number] ORDERING CLINICIAN: BHARGAVI FELICIANO FINDINGS: CARDIOMEDIASTINAL SILHOUETTE: Cardiomediastinal silhouette is normal in size and configuration. LUNGS: No consolidation, pneumothorax, or significant effusion. ABDOMEN: No remarkable upper abdominal findings. BONES: No acute osseous changes. [facility] Aung Julien MD - 11/15/2023 Interpreted By: Aung Julien, STUDY: XR CHEST 1 VIEW; 11/15/2023 5:06 pm INDICATION: Signs/Symptoms:Chest Pain. COMPARISON: Chest radiograph 11/11/2023 ACCESSION NUMBER(S): [id number] ORDERING CLINICIAN: BHARGAVI FELICIANO FINDINGS: CARDIOMEDIASTINAL SILHOUETTE: Cardiomediastinal silhouette is normal in size and configuration. LUNGS: No consolidation, pneumothorax, or significant effusion. ABDOMEN: No remarkable upper abdominal findings. BONES: No acute osseous changes. IMPRESSION: 1. No evidence of acute cardiopulmonary process. Signed by: Aung Julien 11/15/2023 5:18 PM Dictation workstation: [id number] [facility] Work Phone: Radiology Study observation (narrative) [facility] Work Phone: XR Chest Single viewOrdered By: Aung Julien on 11-15-2023 [facility] Work Phone: aPTTon 11-15-2023 aPTT Coag (PPP) [Time] [facility] Coag (PPP) [Time]on The APTT is no longe r used for monitoring Unfractionated Heparin Therapy. For monitoring Heparin Therapy, use the Heparin Assay. [facility] Basic metabolic 2000 panelon 11-11-2023 Anion gap [Moles/Vol] 12 mmol/L 10 - 2 0 mmol/L [facility] Calcium [Mass/Vol] 9.0 mg/dL 8.6 - 10. 3 mg/dL [facility] Chloride [Moles/Vol] 105 mmol/L 98 - 10 7 mmol/L [facility] CO2 [Moles/Vol] 26 mmol/L 21 - 32 mmol/L [facility] Creatinine [Mass/Vol] 0.98 mg/dL 0.50 - 1.30 mg/dL [facility] GFR/1.73 sq M.predicted among non-blacks MDRD (S/P/Bld) [Vol rate/Area] 75 mL/min/{1.73_m2} - PINF [facility] Comment on above: Calculations of leonides mated GFR are performed using the 2020 CKD-EPI Study Refit equation without the race variable for the IDMS-Traceable creatinine methods. https://jasn.asnjournals.org/content/early//ASN.55527 90040 Glucose [Mass/Vol] 117 mg/dL High 74 - 99 mg/dL [facility] Interpretation and review of laboratory results Abnormal [facility] Potassium [Moles/Vol] 3.8 mmol/L 3.5 - 5.3 mmol/L [facility] Sodium [Moles/Vol] 139 mmol/L 136 - 145 mmol/L [facility] Urea nitrogen [Mass/Vol] 22 mg/dL 6 - 23 mg/dL [facility] CBC W Auto Differential pane l (Bld)on 11-11-2023 Basophils (Bld) [#/Vol] 0.05 10*3/uL [facility] Basophils/100 WBC (Bld) 0.7 % 0.0 - 2.0 % [facility] Eosinophils (Bld) [#/Vol] 0.26 10*3/uL [facility] Eosinophils/100 WBC (Bld) 3.4 % 0.0 - 6.0 % [facility] Erythrocyte distribution width (RBC) [Ratio] 13.1 % 11.5 - 14.5 % [facility] Hematocrit (Bld) [Volume fraction] 41.7 % 41.0 - 52.0 % [facility] Hemoglobin (Bld) [Mass/Vol] 13.9 g/dL 13.5 - 17.5 g/dL [facility] Immature granulocytes (Bld) [#/Vol] 0.03 10*3/uL [facility] Immature granulocytes/100 WBC (Bld) 0.4 % 0.0 - 0.9 % [facility] Comment on above: Immature Granulocyte Count (IG) includes promyelocytes, myelocytes and metamyelocytes but does not include bands. Percent differential counts (%) should be interpreted in the context of the absolute cell counts (cells/UL). Interpretation and review of laboratory results Abnormal [facility] Lymphocytes (Bld) [#/Vol] 1.32 10*3/uL [facility] Lymphocytes/100 WBC (Bld) 17.3 % 13.0 - 44.0 % [facility] MCH (RBC) [Entitic mass] 33.6 pg 26.0 - 34.0 pg [facility] MCHC (RBC) [Mass/Vol] 33.3 g/dL 32.0 - 36.0 g/dL [facility] MCV (RBC) [Entitic vol] 101 fL High 80 - 100 fL [facility] Monocytes (Bld) [#/Vol] 0.85 10*3/uL High [facility] Monocytes/100 WBC (Bld) 11.2 % 2.0 - 10.0 % [facility] Neutrophils (Bld) [#/Vol] 5.11 10*3/uL [facility] Comment on above: Percent differential counts (%) should be interpreted in the context of the absolute cell counts (cells/uL). Neutrophils/100 WBC (Bld) 67.0 % 40.0 - 80.0 % [facility] Nucleated RBC/100 WBC (Bld) [Ratio] 0.0 % [facility] Platelets (Bld) [#/Vol] 242 10*3/uL [facility] RBC (Bld) [#/Vol] 4.14 10*6/uL Low [facility] WBC (Bld) [#/Vol] 7.6 10*3/uL [facility] Natriuretic peptide B [Mass/ Vol]on 11-11-2023 Interpretation and review of laboratory results Abnormal [facility] Natriuretic peptide B (Bld) [Mass/Vol] 108 pg/mL High 0 - 99 pg/mL [facility] <100 pg/mL - Heart failure unlikely 100-299 pg/mL - Intermediate probability of acute heart failure exacerbation. Correlate with clinical context and patient history. >=300 pg/mL - Heart Failure likely. Correlate with clinical context and patient history. BNP testing is performed using different testing methodology at [facility] than at other [facility]. Direct result comparisons should only be made within the same method. [facility] No Panel Informationon 11-11 [facility] Tropinin I.cardiac panel Hig h sensitivity methodon 11-11-2023 Interpretation and review of laboratory results Normal [facility] Less than 99th percentile of normal range cutoff- Female and children under 18 years old <14 ng/L; Male <21 ng/L: Negative Repeat testing should be performed if clinically indicated. Female and children under 18 years old 14-50 ng/L; Male 21-50 ng/L: Consistent with possible cardiac damage and possible increased clinical risk. Serial measurements may help to assess extent of myocardial damage. >50 ng/L: Consistent with cardiac damage, increased clinical risk and myocardial infarction. Serial measurements may help assess extent of myocardial damage. NOTE: Children less than 1 year old may have higher baseline troponin levels and results should be interpreted in conjunction with the overall clinical context. NOTE: Troponin I testing is performed using a different testing methodology at [facility] than at other [facility]. Direct result comparisons should only be made within the same method. [facility] Troponin I, High Sensitivity on 11-11-2023 Tropinin I.cardiac panel High sensitivity method 5 ng/L 0 - 20 ng/L [facility] Urinalysis complete W Reflex Culture panel (U)on 11-11-2023 Appearance (U) Clear Clear [facility] Bilirubin (U) [Mass/Vol] Negative NEGATIVE [facility] Color (U) Straw Straw, Yellow [facility] Glucose Auto test strip (U) [Mass/Vol] Negative NEGATIVE mg/dL [facility] Interpretation and review of laboratory results Normal [facility] Ketones (U) [Mass/Vol] Negative NEGAT DERRELL mg/dL [facility] Leukocyte esterase Auto test strip Ql (U) Negative NEGATIVE [facility] Nitrite Auto test strip Ql (U) Negative NEGATIVE [facility] pH (U) 6.0 [pH] 5.0, 5.5, 6.0, 6.5, 7.0, 7.5, 8.0 [facility] Protein (U) [Mass/Vol] Negative NEGAT DERRELL mg/dL [facility] RBC (U) [#/Vol] Negative NEGATIVE [facility] Specific gravity (U) [Rel density] 1.013 1.005 - 1.035 [facility] Urobilinogen (U) [Mass/Vol] mg/dL NINF - 2.0 mg/dL [facility] XR Chest Single viewon 11-11 No acute cardiopulmonary process. MACRO: None Signed by: Wanda Montalvo 11/11/2023 9:44 PM Dictation workstation: [id number] MMODAL Interpreted By: Wanda Montalvo, STUDY: XR CHEST 1 VIEW; 11/11/2023 9:29 pm INDICATION: Signs/Symptoms:Genera lized weakness. COMPARISON: Chest x-ray 09/23/2022 ACCESSION NUMBER(S): [id number] ORDERING CLINICIAN: SAI MYERS FINDINGS: CARDIOMEDIASTINAL SILHOUETTE: Cardiac silhouette is borderline enlarged. Atherosclerotic calcification of the aorta. LUNGS: No consolidation, pleural effusion or pneumothorax. ABDOMEN: Oral contrast noted in the visualized colon. 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 MMODAL Wanda Montalvo MD - 11/11/2023 Interpreted By: Wanda Montalvo, STUDY: XR CHEST 1 VIEW; 11/11/2023 9:29 pm INDICATION: Signs/Symptoms:Genera lized weakness. COMPARISON: Chest x-ray 09/23/2022 ACCESSION NUMBER(S): [id number] ORDERING CLINICIAN: SAI MYERS FINDINGS: CARDIOMEDIASTINAL SILHOUETTE: Cardiac silhouette is borderline enlarged. Atherosclerotic calcification of the aorta. LUNGS: No consolidation, pleural effusion or pneumothorax. ABDOMEN: Oral contrast noted in the visualized colon. 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 IMPRESSION: No acute cardiopulmonary process. MACRO: None Signed by: Wanda Montalvo 11/11/2023 9:44 PM Dictation workstation: [id number] [facility] Work Phone: Radiology Study observation (narrative) [facility] Work Phone: XR Chest Single viewOrdered By: Wanda Montalvo on 11-11-2023 [facility] Work Phone: RF Esophagus Views W barium contrast Julito 11-06-2023 1. Small to moderate sized sliding hiatal hernia and gastroesophageal reflux. 2. Minimal esophageal dysmotility noted. Signed by: João Zamora 11/06/2023 12:10 PM Dictation workstation: [id number] [facility]AL Interpreted By: João Zamora, STUDY: FL GI ESOPHAGRAM; 11/06/2023 9:01 am INDICATION: Signs/Symptoms:Hiatal hernia, dysphagia. COMPARISON: None. ACCESSION NUMBER(S): [id number] ORDERING CLINICIAN: DAYSI ARENAS TECHNIQUE: Initial orderlies teacher radiograph of the esophagus was obtained. Multiple fluoroscopic spot images were obtained after the administration of effervescent crystals and 100 mL of barium contrast. The patient tolerated the procedure well. Fluoroscopic time was 1.8 minutes. FINDINGS: Initial orderlies teacher image is grossly unremarkable. Fluoroscopic images demonstrate normal peristalsis with free flow of barium through the pharynx and esophagus without evidence of obstruction or stricture. There is no evidence of extraluminal contrast suggestive of leak. No intraluminal mass lesions or hiatal hernia is appreciated. There is no evidence of extrinsic compression of the esophagus or pharynx. Minimal tertiary contractions are seen in the esophagus. There is a small to moderate-sized sliding hiatal hernia and gastroesophageal reflux noted. [facility] MMODAL João Zamora MD - 11/06/2023 Interpreted By: João Zamora, STUDY: FL GI ESOPHAGRAM; 11/06/2023 9:01 am INDICATION: Signs/Symptoms:Hiatal hernia, dysphagia. COMPARISON: None. ACCESSION NUMBER(S): [id number] ORDERING CLINICIAN: DAYSI ARENAS TECHNIQUE: Initial orderlies teacher radiograph of the esophagus was obtained. Multiple fluoroscopic spot images were obtained after the administration of effervescent crystals and 100 mL of barium contrast. The patient tolerated the procedure well. Fluoroscopic time was 1.8 minutes. FINDINGS: Initial orderlies teacher image is grossly unremarkable. Fluoroscopic images demonstrate normal peristalsis with free flow of barium through the pharynx and esophagus without evidence of obstruction or stricture. There is no evidence of extraluminal contrast suggestive of leak. No intraluminal mass lesions or hiatal hernia is appreciated. There is no evidence of extrinsic compression of the esophagus or pharynx. Minimal tertiary contractions are seen in the esophagus. There is a small to moderate-sized sliding hiatal hernia and gastroesophageal reflux noted. IMPRESSION: 1. Small to moderate sized sliding hiatal hernia and gastroesophageal reflux. 2. Minimal esophageal dysmotility noted. Signed by: João Zamora 11/06/2023 12:10 PM Dictation workstation: [id number] [facility] Work Phone: Radiology Study observation (narrative) [facility] Work Phone: RF Esophagus Views W barium contrast POOrdered By: João Zamora on 11-06-2023 [facility] Work Phone: Skin prepon 10-24-2023 Prepped for avulsion [facility] POCT UA (nonautomated w/o mi croscopy) manually resultedon 10-06-2023 Appearance (U) Clear Clear [facility] Work Phone: Glucose Test strip (U) [Mass/Vol] Negative NEGATIVE mg/dl [facility] Work Phone: Hemoglobin Ql (U) TRACE-Intact Abnormal NEGATIVE [facility]: Interpretation and review of laboratory results Abnormal [facility] Work Phone: Leukocyte esterase Test strip Ql (U) Negative NEGATIVE [facility] Work Phone: Nitrite Ql (U) Negative NEGATIVE [facility] Work Phone: pH (U) 7.0 [pH] No Reference Range Established [facility] Work Phone: POC Bilirubin, Urine Negative NEGATIVE [facility] Work Phone: POC Color, Urine Yellow Straw, Yellow, Light-Yellow [facility] Work Phone: POC Ketones, Urine Negative NEGATIVE mg/dl [facility] Work Phone: POC Protein, Urine Negative NEGATIVE, 30 (1+) mg/dl [facility] Work Phone: POC Specific [place], Urine 1.015 1.005 - 1.035 [facility] Work Phone: POC Urobilinogen, Urine 0.2 0.2, 1.0 EU/DL [facility] Work Phone: [facility] Work Phone: Measure post void residualon 09-17-2023 36cc [facility] Work Phone: [facility] Work Phone: Basic metabolic 2000 panelon 07-23-2023 Anion gap [Moles/Vol] 13 mmol/L 10 - 2 0 mmol/L [facility] Calcium [Mass/Vol] 8.5 mg/dL Low 8.6 - 10. 3 mg/dL [facility] Chloride [Moles/Vol] 108 mmol/L High 98 - 10 7 mmol/L [facility] CO2 [Moles/Vol] 23 mmol/L 21 - 32 mmol/L [facility] Creatinine [Mass/Vol] 0.86 mg/dL 0.50 - 1.30 mg/dL [facility] GFR/1.73 sq M.predicted MDRD (S/P/Bld) [Vol rate/Area] 84 mL/min/{1.73_m2} - PINF [facility] Comment on above: Calculations of leonides mated GFR are performed using the 2020 CKD-EPI Study Refit equation without the race variable for the IDMS-Traceable Creatinine Methods. https://jasn.asnjournals.org/content/early//ASN.52004 13658 Glucose [Mass/Vol] 92 mg/dL 74 - 99 mg/dL [facility] Interpretation and review of laboratory results Abnormal [facility] Potassium [Moles/Vol] 3.8 mmol/L 3.5 - 5.3 mmol/L [facility] Sodium [Moles/Vol] 140 mmol/L 136 - 145 mmol/L [facility] Urea nitrogen [Mass/Vol] 20 mg/dL 6 - 23 mg/dL [facility] Magnesiumon 07-23-2023 Magnesium [Mass/Vol] 1.66 mg/dL 1.60 - 2.40 mg/dL [facility] Magnesium [Mass/Vol]on 07-23 Interpretation and review of laboratory results Normal [facility] CBC W Auto Differential pane l (Bld)on 07-22-2023 Basophils (Bld) [#/Vol] 0.05 10*3/uL [facility] Basophils/100 WBC (Bld) 0.5 % 0.0 - 2.0 % [facility] Eosinophils (Bld) [#/Vol] 0.15 10*3/uL [facility] Eosinophils/100 WBC (Bld) 1.5 % 0.0 - 6.0 % [facility] Erythrocyte distribution width (RBC) [Ratio] 13.7 % 11.5 - 14.5 % [facility] Hematocrit (Bld) [Volume fraction] 38.7 % Low 41.0 - 52.0 % [facility] Hemoglobin (Bld) [Mass/Vol] 13.1 g/dL Low 13.5 - 17.5 g/dL [facility] Immature granulocytes (Bld) [#/Vol] 0.06 10*3/uL [facility] Immature granulocytes/100 WBC (Bld) 0.6 % 0.0 - 0.9 % [facility] Comment on above: Immature Granulocyte Count (IG) includes promyelocytes, myelocytes and metamyelocytes but does not include bands. Percent differential counts (%) should be interpreted in the context of the absolute cell counts (cells/UL). Interpretation and review of laboratory results Abnormal [facility] Lymphocytes (Bld) [#/Vol] 0.89 10*3/uL [facility] Lymphocytes/100 WBC (Bld) 8.9 % 13.0 - 44.0 % [facility] MCH (RBC) [Entitic mass] 34.0 pg 26.0 - 34.0 pg [facility] MCHC (RBC) [Mass/Vol] 33.9 g/dL 32.0 - 36.0 g/dL [facility] MCV (RBC) [Entitic vol] 101 fL High 80 - 100 fL [facility] Monocytes (Bld) [#/Vol] 0.90 10*3/uL High [facility] Monocytes/100 WBC (Bld) 9.0 % 2.0 - 10.0 % [facility] Neutrophils (Bld) [#/Vol] 7.97 10*3/uL High [facility] Comment on above: Percent differential counts (%) should be interpreted in the context of the absolute cell counts (cells/uL). 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) 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) TIA (transient ischemic attack) (435.9) (G45.9) Hyperlipidemia, unspecified hyperlipidemia type (272.4) (E78.5) Orders Peripheral arterial occlusive disease IO EKG Electrocardiogram- 12 Lead; Status:Complete; Done: [id number] Chief Complaint CAD History of Present [id number] gentleman with a medical history of coronary artery disease, hypertension, previous TIA, here to establish care: Problem #1 history of coronary artery disease -Per notes he has a history of near total occlusion of his RCA that has been conservatively managed in the past with EECP and medications (diagnosed in 2007; confirmed on repeat angiogram 2010). No prior history of stents or open heart surgery. Problem #2 hypertension -Current medications include benazepril 40 mg daily, Lopressor 25 mg twice daily Problem #3 previous history of TIA -Due to a history of TIA he was asked to take 325 mg of aspirin. Denies any chest discomfort or shortness of breath with exertion. Denies any orthopnea/PND/lower extremity edema. Denies any dizziness or lightheadedness. Normotensive in clinic today. 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) Encounter for immunization (V03.89) (Z23) Encounter for prostate cancer screening (V76.44) (Z12.5) Erectile dysfunction (607.84) (N52.9) 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 (530.81) (K21.9) Hematuria (599.70) (R31.9) 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) Hyperlipidemia, unspecified hyperlipidemia type (272.4) (E78.5) Hypertension, unspecified type (401.9) (I10) Left shoulder pain (719.41) (M25.512) Low back pain (724.2) (M54.50) Lumbar radiculopathy (724.4) (M54.16) Lumbosacral radiculopathy (724.4) (M54.17) Lumbosacral spondylosis (721.3) (M47.817) Medicare annual wellness visit, subsequent (V70.0) (Z00.00) 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) Nocturia (788.43) (R35.1) Obstructive sleep apnea syndrome (327.23) (G47.33) Osteoarthritis (715.90) (M19.90) 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) Right shoulder pain (719.41) (M25.511) Shoulder weakness (719.61) (R29.898) Skin lesion of left ear (380.9) (H61.92) Taste impairment (781.1) (R43.2) TIA (transient ischemic attack) (435.9) (G45.9) Urinary retention (788.20) (R33.9) Surgical History Problems History of Cataract Surgery History of Colonoscopy (Fiberoptic) History of Hip replacement L THR, 2019, [place] History Of Prior Surgery Cath of both left and right sides without graft by Dr Paredes in 2010 History of Inguinal Hernia Repair History of Shoulder surgery reverse lt shoulder relplacement Dr Bates 2019 History of Skin biopsy History of Tonsillectomy With Adenoidectomy Past Medical History Problems History of cataract (V12.49) (Z86.69) History of Visual aura (368.9) (H53.9) Current Meds Medication NameInstruction amLODIPine Besylate 5 MG Oral TabletTAKE 1 TABLET DAILY. Aspirin 325 MG Oral TabletTAKE 1 TABLET DAILY. Benazepril HCl - 40 MG Oral TabletTAKE 1 TABLET DAILY. Disability Placard5 YR MAX Folic Acid 1 MG Oral TabletTAKE 2 TABLETS DAILY. Methotrexate 2.5 MG Oral TabletTAKE 7 TABLETS PER WEEK. Metoprolol Tartrate 25 MG Oral TabletTAKE 1 TABLET TWICE DAILY. Multi Vitamin Daily TABSTAKE 1 TABLET DAILY. Omeprazole 40 MG Oral Capsule Delayed ReleaseTAKE 1 CAPSULE Daily Pravastatin Sodium 40 MG Oral TabletTAKE 1 TABLET AT BEDTIME. Tamsulosin HCl - 0.4 MG Oral CapsuleTAKE 2 CAPSULE Daily Allergies Medication No Known Drug Allergies Recorded By: Beatriz Victoria; 04/12/2017 10:00:13 AM Family History Mother Family history of heart murmur (V17.49) (Z82.49) Family history of hyperlipidemia (V18.19) (Z83.438) Father Family history of cardiac disorder (V17.49) (Z82.49) Family history of pneumonia (V19.8) (Z83.6) Social History Problems Denies alcohol consumption (V49.89) (Z78.9) Former smoker (V15.82) (Z87.891) Never chewed tobacco (V49.89) (Z78.9) No illicit drug use Patient has healthcare proxy and living will (V49.89) (Z78.9) Review of Systems Constitutional: Denies any fever or chills Eyes: Denies any ey (more content not included)... Normal [facility] Tobacco Screening.on 023 Fall risk assessment a) No falls within the last year [facility] Work Phone: Tobacco use status CP b) No [facility] Work Phone: Joint Injection Large/Arthro centesis: R subacromial bursaon 05-31-2023 Don Barrera MD 05/31/2023 3:21 PM Joint Injection Large/Arthrocentesis: R subacromial bursa on 05/31/2023 3:19 PM Indications: pain Details: 25 G needle, posterior approach Medications: 40 mg triamcinolone acetonide 40 mg/mL Outcome: tolerated well, no immediate complications Procedure, treatment alternatives, risks and benefits explained, specific risks discussed. Consent was given by the patient. [facility] Work Phone: [facility] Work Phone: ABD AORTAon 05-10-2023 US ABD AORTA Patient Name: FAWN CAMERON STUDY: US ABD AORTA; 05/10/2023 8:22 am INDICATION: known AAA, monitoring for change. COMPARISON: 04/28/2022 ACCESSION NUMBER(S): [id number] ORDERING CLINICIAN: DNO BARRERA TECHNIQUE: Transabdominal imaging of the abdominal aorta was performed. Grayscale, color, and spectral Doppler were performed. FINDINGS: Atherosclerosis. Proximal abdominal aorta measures 1.7 cm. Mid aorta measures 2.1 cm. Distal aorta measures 3.8 cm similar in size to prior exam where it measured 3.6 cm. Right common iliac artery measures 1.9 cm. Left common iliac artery measures 1.8 cm. IMPRESSION: Distal infrarenal abdominal aortic aneurysm, similar or minimally increased in size when compared to prior exam. Bilateral common iliac artery ectasia similar or slightly worsened. Electronically signed by: FRANKIE BOWLES MD Normal [facility] C-REACTIVE PROTEINon 023 C-REACTIVE PROTEIN 0.18 mg/dL Normal [facility] Comment on above: Result Comment: REF VALUE < 1.00 Performed By: #### C RP ####[place] [address] CBC AND DIFFERENTIALon 03-10 % AUTOMATED IMMATURE GRAN 0.4 % Normal 0.0 - 0.9 [facility] Comment on above: Result Comment: Steph ture Granulocyte Count (IG) includes promyelocytes, myelocytes and metamyelocytes but does not include bands. Percent differential counts (%) should be interpreted in the context of the absolute cell counts (cells/L). Performed By: #### C BCDF #### [address] [address] Basophils (Bld) [#/Vol] 0.06 10*3/uL Normal 0.00 - 0.10 [facility] Comment on above: Performed By: #### C BCDF #### [address] [address] Basophils/100 WBC (Bld) 0.7 % Normal 0.0 - 2.0 [facility] Comment on above: Performed By: #### C BCDF #### [address] [address] Eosinophils (Bld) [#/Vol] 0.08 10*3/uL Normal 0.00 - 0.40 [facility] Comment on above: Performed By: #### C BCDF #### [address] [address] Eosinophils/100 WBC (Bld) 1.0 % Normal 0.0 - 6.0 [facility] Comment on above: Performed By: #### C BCDF #### [address] [address] Erythrocyte distribution width (RBC) [Ratio] 14.0 % Normal 11.5 - 14.5 [facility] Comment on above: Performed By: #### C BCDF #### [address] [address] Hematocrit (Bld) [Volume fraction] 42.4 % Normal 41.0 - 52.0 [facility] Comment on above: Performed By: #### C BCDF #### [address] [address] Hemoglobin (Bld) [Mass/Vol] 14.0 g/dL Normal 13.5 - 17.5 [facility] Comment on above: Performed By: #### C BCDF #### [address] [address] Lymphocytes (Bld) [#/Vol] 0.94 10*3/uL Normal 0.80 - 3.00 [facility] Comment on above: Performed By: #### C BCDF #### [address] [address] Lymphocytes/100 WBC (Bld) 11.4 % Normal 13.0 - 44.0 [facility] Comment on above: Performed By: #### C BCDF #### [address] [address] MCHC (RBC) [Mass/Vol] 33.0 g/dL Normal 32.0 - 36.0 [facility] Comment on above: Performed By: #### C BCDF #### [address] [address] MCV (RBC) [Entitic vol] 99 fL Normal 80 - 100 [facility] Comment on above: Performed By: #### C BCDF #### [address] [address] Monocytes (Bld) [#/Vol] 0.67 10*3/uL Normal 0.05 - 0.80 [facility] Comment on above: Performed By: #### C BCDF #### [address] [address] Monocytes/100 WBC (Bld) 8.1 % Normal 2.0 - 10.0 [facility] Comment on above: Performed By: #### C BCDF #### [address] [address] Neutrophils (Bld) [#/Vol] 6.48 10*3/uL High 1.60 - 5.50 [facility] Comment on above: Result Comment: Perc ent differential counts (%) should be interpreted in the context of the absolute cell counts (cells/L). Performed By: #### C BCDF #### [address] [address] Neutrophils/100 WBC (Bld) 78.4 % Normal 40.0 - 80.0 [facility] Comment on above: Performed By: #### C BCDF #### [address] [address] Platelets (Bld) [#/Vol] 253 10*3/uL Normal 150 - 450 [facility] Comment on above: Performed By: #### C BCDF #### [address] [address] RBC 4.29 x10E12/L Low 4.50 - 5.90 [facility] Comment on above: Performed By: #### C BCDF #### [address] [address] WBC (Bld) [#/Vol] 8.3 10*3/uL Normal 4.4 - 11.3 [facility] Comment on above: Performed By: #### C BCDF #### [place] [id number] COMPREHENSIVE PANELon 03-10- 2022 Albumin [Mass/Vol] 4.1 g/dL Normal 3.4 - 5.0 [facility] Comment on above: Performed By: #### C MP #### [address] [address] ALP [Catalytic activity/Vol] 78 U/L Normal 33 - 136 [facility] Comment on above: Performed By: #### C MP #### [address] [address] ALT [Catalytic activity/Vol] 15 U/L Normal 10 - 52 [facility] Comment on above: Result Comment: Nicolette ents treated with Sulfasalazine may generate falsely decreased results for ALT. Performed By: #### C MP #### [address] [address] Anion gap [Moles/Vol] 11 mmol/L Normal 10 - 20 [facility] Comment on above: Performed By: #### C MP #### [address] [address] AST [Catalytic activity/Vol] 17 U/L Normal 9 - 39 [facility] Comment on above: Performed By: #### C MP #### [address] [address] Bilirubin [Mass/Vol] 0.6 mg/dL Normal 0.0 - 1.2 [facility] Comment on above: Performed By: #### C MP #### [address] [address] Calcium [Mass/Vol] 8.9 mg/dL Normal 8.6 - 10.3 [facility] Comment on above: Performed By: #### C MP #### [address] [address] Chloride [Moles/Vol] 106 mmol/L Normal 98 - 107 [facility] Comment on above: Performed By: #### C MP #### [address] [address] Creatinine [Mass/Vol] 0.89 mg/dL Normal 0.50 - 1.30 [facility] Comment on above: Performed By: #### C MP #### [address] [address] GFR/1.73 sq M.predicted among non-blacks MDRD (S/P/Bld) [Vol rate/Area] 83 mL/min/{1.73_m2} Normal >90 [facility] Comment on above: Result Comment: CALC ULATIONS OF ESTIMATED GFR ARE PERFORMED USING THE 2020 CKD-EPI STUDY REFIT EQUATION WITHOUT THE RACE VARIABLE FOR THE IDMS-TRACEABLE CREATININE METHODS. https://jasn.asnjournals.org/content/early/ASN.43971 [address] Performed By: #### C MP #### [address] [address] Glucose [Mass/Vol] 104 mg/dL High 74 - 99 [facility] Comment on above: Performed By: #### C MP #### [address] [address] HCO3 (Bld) [Moles/Vol] 25 mmol/L Normal 21 - 32 [facility] Comment on above: Performed By: #### C MP #### [address] [address] Potassium [Moles/Vol] 4.1 mmol/L Normal 3.5 - 5.3 [facility] Comment on above: Performed By: #### C MP #### [address] [address] Protein [Mass/Vol] 6.3 g/dL Low 6.4 - 8.2 [facility] Comment on above: Performed By: #### C MP #### [address] [address] Sodium [Moles/Vol] 138 mmol/L Normal 136 - 145 [facility] Comment on above: Performed By: #### C MP #### [address] [address] Urea nitrogen [Mass/Vol] 18 mg/dL Normal 6 - 23 [facility] Comment on above: Performed By: #### C MP #### [address] [address] CREATINE KINASEon 03-10-2023 CK [Catalytic activity/Vol] 68 U/L Normal 0 - 325 [facility] Comment on above: Performed By: #### C K #### [address] [address] [address] HEAD WO CONTRASTon 2022 CT HEAD WO CONTRAST Patient Name: FAWN CAMERON STUDY: CT HEAD WO CONTRAST 03/10/2023 1:10 pm INDICATION: stable COMPARISON: CT head dated 01/07/2021 ACCESSION NUMBER(S): [id number] ORDERING CLINICIAN: EARLE COTTO TECHNIQUE: Contiguous axial CT images were obtained at 3 mm slice thickness through the head without contrast administration. FINDINGS: Minimal diffuse volume loss is seen bilaterally. Minimal periventricular white matter changes are seen. Callaway-white differentiation is intact and there is no evidence of acute cortical infarct. No mass, mass effect or midline shift is seen. There is no evidence of hemorrhage. There is complete opacification the left maxillary sinus. IMPRESSION: 1. Minimal volume loss and areas of nonspecific white matter hypodensity, which is nonspecific in nature, but is most likely age-related and/or microvascular in nature. 2. No CT evidence of acute hemorrhage or infarct. Electronically signed by: JOÃO ZAMORA MD Normal [facility] GLUCOSE-POCTon 03-10-2023 Glucose [Mass/Vol] 98 mg/dL Normal 74 - 99 [facility] Comment on above: Performed By: #### G ROBIN #### [address] [address] LACTATEon 03-10-2023 Lactate [Moles/Vol] 1.1 mmol/L Normal 0.4 - 2.0 [facility] Comment on above: Result Comment: Cha puncture immediately after or during the administration of Metamizole may lead to falsely low results. Testing should be performed immediately prior to Metamizole dosing. Performed By: #### L ACT #### [address] [address] Provider Note - ED v3on 02-20 Provider Note - ED v3 Provider Note: Chart Review: ED NOTES ED NOTES: 87-year-old male presents after having a transient episode of some dizziness. Patient states by the time he arrived here the symptoms are resolving. Patient was mildly hypertensive upon presentation. Patient denies any vertigo type symptoms or headache. Patient denies any nausea, vomiting or diarrhea with presenting complaint. Patient denies any chest pain or shortness of breath. Patient's symptoms have resolved as his blood pressure has normalized. I feel that the symptoms are related to hypertension. I did go over all the findings with the patient which are essentially all normal. Patient will be discharged home. Have instructed him to take his home medication for hypertension as directed and check his blood pressure. If he has any reoccurrence of symptoms return to ED. Follow-up with family medical doctor as needed this week. 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 denies any other complaints and is starting to feel better.)(1). The historian is the patientspouse. Triage Information: Most recent Vital Sign Value Date Temp (F): 97.6 03-10-2023 12:47 Temp (C): 36.4 03-10-2023 12:47 Heart Rate (beats/min): 60 03-10-2023 12:47 Respirations (breaths/min): 16 03-10-2023 12:47 SpO2 (%): 96 03-10-2023 12:47 BP Systolic (mm Hg): 165 03-10-2023 12:47 BP Diastolic (mm Hg): 73 03-10-2023 12:47 PAST MEDICAL HISTORY ALLERGIES/INTOLERANCE S: No Known Allergies HEALTH HISTORY: Medical History Name:CAD (coronary artery disease) Code:I25.10 Name:GERD (gastroesophageal reflux disease) Code:K21.9 Name:Hypertension Code:I10 Name:Hypercholesterol emia Code:E78.00 Name:PAD (peripheral artery disease) Code:I73.9 OUTPATIENT MEDICATIONS: Home Medications Review Status for Reconciliation: N/A Med Status: Patient Currently Takes Medications Drug Name: Metoprolol Tartrate 50 mg oral tablet Instructions: 1 tab(s) orally 2 times a day Drug Name: amLODIPine 5 mg oral tablet Instructions: 1 tab(s) orally once a day Drug Name: pravastatin 40 mg oral tablet Instructions: 1 tab(s) orally once a day (at bedtime) Drug Name: omeprazole 40 mg oral delayed release capsule Instructions: 1 cap(s) orally once a day Drug Name: benazepril 20 mg oral tablet Instructions: 2 tab(s) orally once a day Drug Name: Flomax 0.4 mg oral capsule Instructions: 2 cap(s) orally once a day Drug Name: folic acid 1 mg oral tablet Instructions: 2 tab(s) orally once a day Drug Name: methotrexate 2.5 mg oral tablet Instructions: 6 tab(s) orally once a week Drug Name: aspirin 325 mg oral delayed release tablet Instructions: 1 tab(s) orally once a day Drug Name: benzonatate 200 mg oral capsule Instructions: 1 cap(s) orally once a day SIGNIFICANT EVENTS: Clinical Events Description:Surgical Procedure Additional Notes:1. L REVERSE TSR; Immunizations Description:SARS-CoV- 2 (COVID-19) Description:SARS-CoV- 2 (COVID-19) Description:SARS-CoV- 2 (COVID-19) Past Medical History Description:Arthritis Description:High BP Description:GERD Description:Ocular Migraines Description:Left Hip Pain REVIEW OF SYSTEMS NEUROLOGICAL: POSITIVE for: dizziness; All other systems reviewed and are negative PHYSICAL EXAM CONSTITUTIONAL: Well appearing, well nourished, awake, alert, oriented to person, place, time/situation and in no apparent distress. HENMT: Airway patent, ears with clear tympanic membranes bilaterally. Nasal mucosa clear. Mouth with normal mucosa. Throat has no vesicles, no oropharyngeal exudates and uvula is midline. Face with no lymph node enlargement. EYES: Clear bilaterally, pupils equal, round and reactive to light. CARDIOVASCULAR: Normal rate, regular rhythm. Heart sounds S1, S2. No murmurs, rubs or gallops. PMI non-displaced. RESPIRATORY: Breath sounds clear and equal bilaterally. GASTROINTESTINAL: Abdomen soft, non-distended, no rebound, no guarding. Bowel sounds normal in all 4 quadrants. GENITOURINARY: No discharge, no lesions. MUSCULOSKELETAL: Spine appears normal, range of motion is not limited, no muscle or joint tenderness. NEUROLOGICAL: Alert and oriented, no focal deficits, no motor or sensory deficits. SKIN: Skin normal color for race, warm, dry and intact. No evidence of trauma. PSYCHIATRIC: Alert and oriented to person, place, time/situation. normal mood and affect. No apparent risk to self or others. HEME/LYMPH: No adenopathy or splenomegaly. No cervical, supraclavicular or inguinal lymphadenopathy. CRITICAL CARE RESULTS: Recent Lab Results: I have reviewed these laboratory results: Complete Blood Count + Differential 10-Mar-2023 13:18: (more content not included)... Normal [facility] Risk Screen - Adult Emergenc yon 03-10-2023 Risk Screen - Adult Emergency Preferred Language: Preferred Language: Preferred Language for Discussing Health Care (patient/designee)Maegan wilder Patient Preferred Pharmacy: Patient Preferred Pharmacy Statement: I have reviewed and updated the patient's preferred pharmacy selection for today's visit. Advanced Directives: Advance Directive/DNRyes Advance Directive typeLiving Will Family Violence Adult: Abuse Screen: Are you or have you been threatened or abused physically, emotionally, or sexually by anyoneno Learning Assessment (Patient): Learning Assessment (Patient): Patient is Able to be Assessed for Learningyes Factors Influencing Readiness to Learnn/a Factors that Impact Ability to Learnnone Devices/Methods Used to Communicatenone Learning Preferencesverbal instruction; written material Cultural Considerationsnone Developmental Considerationsnone Buddhism Considerationsnone Other Learnersspouse Learning Assessment (Other Learner): Learning Assessment (Other Learner): Other learner availableyes... Learnerspouse Factors Influencing Readiness to Learnn/a Factors that Impact Ability to Learnnone Devices/Methods Used to Communicatenone Learning Preferencesverbal instruction Cultural Considerationsnone Developmental Considerationsnone Buddhism Considerationsnone Pressure Injury/TB/Substance: Pressure Injury: Do you have a coughno Smoking Statusformer smoker Alcohol Usedenies Drug Usedenies Admission Risk Screen: Significant IndicatorsComplete CAGE: CAGE: Is this an injured patient at a Trauma Center ([facility]/[place]/[facility]/[place]): no Electronic Signatures: Jaci Soto (RN) (Signed 10-Mar-2023 12:55) Authored: Preferred Language, Patient Preferred Pharmacy, Advanced Directives, Family Violence Adult, Learning Assessment (Patient), Learning Assessment (Other Learner), Pressure Injury/TB/Substance, Pressure Injury, CAGE Last Updated: 10-Mar-2023 12:55 by Jaci Soto (RN) Normal [facility] TROPONIN I, HIGH SENSITIVITY on 03-10-2023 TROPONIN I, HIGH SENSITIVITY 4 ng/L Normal 0 - 20 [facility] Comment on above: Result Comment: . Less than 99th percentile of normal range cutoff- Female and children under 18 years old <14 ng/L; Male <21 ng/L: Negative Repeat testing should be performed if clinically indicated. . Female and children under 18 years old 14-50 ng/L; Male 21-50 ng/L: Consistent with possible cardiac damage and possible increased clinical risk. Serial measurements may help to assess extent of myocardial damage. . >50 ng/L: Consistent with cardiac damage, increased clinical risk and myocardial infarction. Serial measurements may help assess extent of myocardial damage. . NOTE: Children less than 1 year old may have higher baseline troponin levels and results should be interpreted in conjunction with the overall clinical context. . NOTE: Troponin I testing is performed using a different testing methodology at [facility] than at other [facility]. Direct result comparisons should only be made within the same method. Performed By: #### T [facility] #### [address] [address] Triage - EDon 03-10-2023 Triage - ED Chart Review: PRIMARY ASSESSMENT ABCD Normal Findings: airway open and patent, circulation normal and alert and oriented ARRIVAL INFORMATION Means of Arrival: wheelchair Mode of Arrival: private vehicle Arrival From: home Accompanied By: spouse/significant other Language: Spoken Language Preferred: Greek Reading Language Preferred: Greek Present on Arrival: Device Present on Arrival to ED: no CHIEF COMPLAINT FAWN CAMERON is a Male patient with a chief complaint of dizziness (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 denies any other complaints and is starting to feel better.). Triage Date/Time: 10-Mar-2023 12:35 MARY: 3 Pain Rating (0-10): 0 = None Vital Signs: Temperature: 97.6F ( 36.4C) taken temporal Blood Pressure: 165/73 Mean: Heart Rate: 60 Respiratory Rate: 16 Pulse Oximetry: 96% Height: 5 feet 6.00 inches. 167.6 CM Weight: 159.3 pounds. Calculated 72.3 kg. (stated) Calculated BMI (kg/m2): 25.738 Calculated BSA (m2) 1.83 Vanessa Coma Scale: Best Eye Response: (E4) spontaneous Best Motor Response: (M6) obeys commands Best Verbal Response: (V5) oriented Vanessa Score: 15 Allergies: no Patient has homicidal thoughts: no Last Known Well: known Time Last Known Well Date/Time: 10-Mar-2023 12:20 Risk Screens Suicide Risk Screen In the Past Month: Have you wished you were or wished you could go to sleep and not wake up no In the Past Month: Have you had any actual thoughts of killing yourself no In Your Lifetime: Have you ever done anything, started to do anything, or prepared to do anything to end your life no Muhammad Fall Scale Screening Has the patient fallen before (or is the patient in the ED as a result of a fall) has not had a fall Does the patient have an impaired gait does not have impaired gait Is the patient cognitively impaired not cognitively impaired Interventions: Muhammad Fall Interventions: LOW INTERVENTIONS: *patient oriented to surroundings and call system, * patient/family falls education completed and documented, *patients fall status communicated during bedside handoff, *whiteboard updated, *mode of toileting discussed with patient, *bed in low position with brakes locked, *call light in reach, * non-skid footwear TRAVEL HISTORY Travel History Coronavirus Screening: no exposure or symptoms Travel Exposure History: NO travel to International locations in the past 30 days PAIN Pain Scale Used: AZALIA Pain Rating (0-10): 0 = None Past Medical History: Past Medical History Reviewedyes Left Hip Pain: Past Medical History, Active Ocular Migraines: Past Medical History, Active GERD: Past Medical History, Active High BP: Past Medical History, Active Arthritis: Past Medical History, Active SARS-CoV-2 (COVID-19): Immunizations, Active, 08-Sep-2021 SARS-CoV-2 (COVID-19): Immunizations, Active, 24-Nov-2020 SARS-CoV-2 (COVID-19): Immunizations, Active, 27-Oct-2020 Electronic Signatures: Jaci Soto (ANNA) (Signed 10-Mar-2023 12:52) Authored: Quick Triage, Risk Screens, Pain, Arrival, ABCD, Travel History, Chart Review, Scores, Past Medical History Last Updated: 10-Mar-2023 12:52 by Jaci Soto (ANNA) [facility] Office Visit (Primary Care T xt/Forms)on 10-27-2022 Follow-up visit Diagnoses/Problems Assessed Hypertension, unspecified type (401.9) (I10) Hyperlipidemia, unspecified hyperlipidemia type (272.4) (E78.5) 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 (530.81) (K21.9) 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) TIA (transient ischemic attack) (435.9) (G45.9) BPH (benign prostatic hyperplasia) (600.00) (N40.0) Encounter for prostate cancer screening (V76.44) (Z12.5) Orders BPH (benign prostatic hyperplasia) Renew: Tamsulosin HCl - 0.4 MG Oral Capsule; TAKE 2 CAPSULE Daily Encounter for prostate cancer screening Prostate Spec.Ag, Screen; Status:Active; Requested for:[id number]; Hyperlipidemia, unspecified hyperlipidemia type Lipid Panel; Status:Active; Requested for:[id number]; Hypertension, unspecified type Comprehensive Metabolic Panel; Status:Active; Requested for:[id number]; Patient Discussion/Summary Follow-up in 6 months with blood testing prior Provider Impressions Provider Impressions Free Text Note Form: Patient arrives to the office today 6-month follow-up for chronic medical problems. Blood pressures under good control, laboratory testing was viewed to the patient is all within normal limits. Vaccinations are up-to-date, patient remains very active, BPH seems to be under control, continues to have some visual auras without headaches that do not seem to be bothering him very much, has regular appointments with ophthalmology, prior neurologic examination and work-up was all negative. Chronic aches and pains seem to be well managed, sees rheumatology on a regular basis, sees dermatology at least yearly, no change with medications plan to recheck in 6 months. Chief Complaint 6 MO F/U. Rev Labs. History of Present Illness No headache, chest pain, shortness of breath, dizziness, lightheadedness, or edema Taking PPI daily without breakthrough symptoms. Reviewed dietary, caffeine, tobacco, alcohol, and NSAID use. No dyspepsia, dysphagia, reflux, melena, or abdominal pain. coughing better, was in urgent care the start of September seen cardiology, no change in medicines sees rheumatology on a regular basis has some visual auras, no HAs, sees opthalmology on a regular basis seen dermatology this past summer last seen urology this past summer, some urine urge Review of Systems Constitutional: NAD, no fevers, chills, sweats or fatigue Rep: no cough or shortness of breath Cardio: no chest pain, edema, or palpitations GI: no nausea, vomiting, diarrhea, constipation, or heartburn : normal urine flow and stream, no nocturia or dysuria MS: no joint pain or significant limits of function Skin: no visible rashes or suspicious lesions Neuro: alert and oriented X4, no numbness, tingling or issues with balance Psych: no anxiety or depression 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) Encounter for immunization (V03.89) (Z23) Encounter for prostate cancer screening (V76.44) (Z12.5) Erectile dysfunction (607.84) (N52.9) 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 (530.81) (K21.9) Hematuria (599.70) (R31.9) 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) Hyperlipidemia, unspecified hyperlipidemia type (272.4) (E78.5) Hypertension, unspecified type (401.9) (I10) Left shoulder pain (719.41) (M25.512) Low back pain (724.2) (M54.50) Lumbar radiculopathy (724.4) (M54.16) Lumbosacral radiculopathy (724.4) (M54.17) Lumbosacral spondylosis (721.3) (M47.817) Medicare annual wellness visit, subsequent (V70.0) (Z00.00) 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) Nocturia (788.43) (R35.1) Obstructive sleep apnea syndrome (327.23) (G47.33) Osteoarthritis (715.90) (M19.90) 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 Normal [facility] Tobacco Screening.on 023 Adult depression screening assessment No [employer] [facility] [place] Phone: Fall risk assessment a) No falls within the last year [employer] [facility] Work Phone: Tobacco use status CPHS b) No [employer] [facility] [place] Phone: LDL, Direct, Serumon 023 Cholesterol in LDL [Mass/Vol] 112 mg/dL 0 - 129 [employer] [facility] Work Phone: Comment on above: Elevated levels of L DL cholesterol are recognized as a de jesus factor in the development of atherosclerosis and CHD. The direct LDL cholesterol test can be used to assess cardiovascular risk and monitor therapy as a follow up to a lipid profile when triglycerides are significantly elevated. Laboratory - Chemistry and C hemistry - challengeon 10-24-2022 Albumin BCP dye [Mass/Vol] 4.1 g/dL 3.4 - 5.0 [employer] [facility] Work Phone: ALP [Catalytic activity/Vol] 85 U/L 33 - 136 [employer] [facility] Work Phone: ALT With P-5'-P [Catalytic activity/Vol] 15 U/L 10 - 52 [employer] [facility] Work Phone: Comment on above: Patients treated wit h Sulfasalazine may generate falsely decreased results for ALT. Anion gap [Moles/Vol] 12 mmol/L 10 - 20 [employer] [facility] Work Phone: AST With P-5'-P [Catalytic activity/Vol] 20 U/L 9 - 39 [employer] [facility] Work Phone: Bilirubin [Mass/Vol] 0.8 mg/dL 0.0 - 1.2 [facility] [employer] [facility] Work Phone: Calcium [Mass/Vol] 9.0 mg/dL 8.6 - 10.3 [facility] Work Phone: Chloride [Moles/Vol] 106 mmol/L 98 - 107 [facility] Work Phone: CO2 [Moles/Vol] 26 mmol/L 21 - 32 -[facility] Work Phone: Creatinine [Mass/Vol] 0.99 mg/dL See Below - [facility] Work Phone: Comment on above: Reference Range: 0.5 0 - 1.30 Glucose [Mass/Vol] 91 mg/dL 74 - 99 [facility] [employer] [facility] Work Phone: Potassium [Moles/Vol] 3.9 mmol/L 3.5 - 5.3 - Medical [facility] Work Phone: Protein [Mass/Vol] 6.3 g/dL below low threshold 6.4 - 8.2 -Medical [employer] [facility] Work Phone: Sodium [Moles/Vol] 140 mmol/L 136 - 145 [facility] [employer] [facility] Work Phone: Urea nitrogen [Mass/Vol] 24 mg/dL above high threshold 6 - 23 [facility] Work Phone: No Panel Informationon 10-24 74 {mL/min/1.73m2} >90 [facility] [employer] [facility] Work Phone: Comment on above: CALCULATIONS OF LEONIDES MATED GFR ARE PERFORMED USING THE 2020 CKD-EPI STUDY REFIT EQUATION WITHOUT THE RACE VARIABLE FOR THE IDMS-TRACEABLE CREATININE METHODS.https://jasn.asnjournals.org/content//A SN.3121742741 Complete Blood Count + Diffe rentialon 10-03-2022 Basophils/100 WBC (Bld) 0.6 % 0.0 - 2.0 [facility] Work Phone: Erythrocyte distribution width (RBC) [Ratio] 14.1 % See Below [email or web address] Work Phone: Comment on above: Reference Range: 11. 5 - 14.5 Hematocrit (Bld) [Volume fraction] 41.7 % See Below [facility] Work Phone: Comment on above: Reference Range: 41. 0 - 52.0 Hemoglobin (Bld) [Mass/Vol] 13.6 g/dL See Below [email or web address] Work Phone: Comment on above: Reference Range: 13. 5 - 17.5 Lymphocytes/100 WBC (Bld) 8.5 % See Below [facility] Work Phone: Comment on above: Reference Range: 13. 0 - 44.0 MCHC (RBC) [Mass/Vol] 32.6 g/dL See Below [facility] [employer] [facility] Work Phone: Comment on above: Reference Range: 32. 0 - 36.0 MCV (RBC) [Entitic vol] 101 fL above high threshold 80 - 100 [email or web address] [facility] Work Phone: Monocytes/100 WBC (Bld) 8.5 % 2.0 - 10.0 [facility] Work Phone: Neutrophils/100 WBC (Bld) 79.6 % See Below [facility] Work Phone: Comment on above: Reference Range: 40. 0 - 80.0 Platelets (Bld) [#/Vol] 249 10*3/uL 150 - 450 -[employer] [facility] Work Phone: RBC (Bld) [#/Vol] 4.15 {x10E12/L} below low threshold See Below [facility] Work Phone: Comment on above: Reference Range: 4.5 0 - 5.90 WBC (Bld) [#/Vol] 9.7 10*3/uL 4.4 - 11.3 [facility] [place] [facility] Work Phone: Complete Blood Count + Differential 0.06 {x10E9/L} See Below [facility] Work Phone: Comment on above: Reference Range: 0.0 0 - 0.10 Complete Blood Count + Differential 0.21 {x10E9/L} See Below [facility] Work Phone: Comment on above: Reference Range: 0.0 0 - 0.40 Complete Blood Count + Differential 0.83 {x10E9/L} See Below [facility] Work Phone: Comment on above: Reference Range: 0.0 5 - 0.80 Reference Range: 0.8 0 - 3.00 Complete Blood Count + Differential 7.72 {x10E9/L} above high threshold See Below [facility] Work Phone: Comment on above: Reference Range: 1.6 0 - 5.50 Percent differential counts (%) should be interpreted in the context of the absolute cell counts (cells/L). Complete Blood Count + Differential 2.2 % 0.0 - 6.0 [facility] Work Phone: Complete Blood Count + Differential 0.6 % 0.0 - 0.9 [facility] Work Phone: Comment on above: Immature Granulocyte Count (IG) includes promyelocytes, myelocytes and metamyelocytes but does not include bands. Percent differential counts (%) should be interpreted in the context of the absolute cell counts (cells/L). Laboratory - Chemistry and C hemistry - challengeon 10-03-2022 Albumin BCP dye [Mass/Vol] 3.8 g/dL 3.4 - 5.0 [facility] Work Phone: ALP [Catalytic activity/Vol] 92 U/L 33 - 136 [facility] Work Phone: ALT With P-5'-P [Catalytic activity/Vol] 14 U/L 10 - 52 [facility] Work Phone: Comment on above: Patients treated wit h Sulfasalazine may generate falsely decreased results for ALT. Anion gap [Moles/Vol] 10 mmol/L 10 - 20 [facility] Work Phone: AST With P-5'-P [Catalytic activity/Vol] 15 U/L 9 - 39 [facility] Work Phone: Bilirubin [Mass/Vol] 0.6 mg/dL 0.0 - 1.2 [facility] Work Phone: Calcium [Mass/Vol] 8.5 mg/dL below low threshold 8.6 - 10.3 [facility] Work Phone: Chloride [Moles/Vol] 106 mmol/L 98 - 107 [facility] Work Phone: CO2 [Moles/Vol] 27 mmol/L 21 - 32 [facility] Work Phone: Creatinine [Mass/Vol] 0.91 mg/dL See Below [facility] Work Phone: Comment on above: Reference Range: 0.5 0 - 1.30 Glucose [Mass/Vol] 96 mg/dL 74 - 99 [facility] [place] Work Phone: Potassium [Moles/Vol] 4.1 mmol/L 3.5 - 5.3 [facility] Work Phone: Protein [Mass/Vol] 5.8 g/dL below low threshold 6.4 - 8.2 [facility] Work Phone: Sodium [Moles/Vol] 139 mmol/L 136 - 145 [facility] Work Phone: Urea nitrogen [Mass/Vol] 21 mg/dL 6 - 23 [facility] Work Phone: No Panel Informationon 10-03 82 {mL/min/1.73m2} >90 [employer] [facility] Work Phone: Comment on above: CALCULATIONS OF LEONIDES MATED GFR ARE PERFORMED USING THE 2020 CKD-EPI STUDY REFIT EQUATION WITHOUT THE RACE VARIABLE FOR THE IDMS-TRACEABLE CREATININE METHODS.https://jasn.asnjournals.org/content//A SN.[email or web address] CHEST 2 VIEW PA AND LATon CHEST 2 VIEW PA AND LAT STUDY: Chest Radiographs; 09/23/2022 9:39 AM INDICATION: Cough for two weeks status post COVID 09/01. COMPARISON: Chest, single portable view obtained on 04/11/2018 at 08:52:00 hours. ACCESSION NUMBER(S): [id number] ORDERING CLINICIAN: HEIKE ADAMS CNP TECHNIQUE: Frontal and lateral chest. FINDINGS: Heart size normal. Airway normal. Vascular calcifications of the aorta. Pulmonary vessels normal. Lungs clear revealing no evidence of focal airspace disease to suggest pneumonia. No effusion. No pneumothorax. Visualized portions of the abdomen normal. Degenerative changes of the thoracic spine. Findings suggest osteoporosis. Appears that the patient has undergone a total shoulder replacement in the past compared to 2018 IMPRESSION: Normal heart size and pulmonary vessels The lungs are clear revealing no evidence of infiltrate to suggest pneumonia which was the clinical question Old right-sided rib fractures There appears to have been in the interval from the previous exam a left shoulder replacement. Signed by Russell Coleman MD Electronically signed by: RUSSELL COLEMAN MD [facility] Provider Note - ED v3on Provider Note - ED v3 Provider Note: Chart Review: ED NOTES ED NOTES: Patient presents for evaluation of cough that has been ongoing for the past few weeks. Pt was diagnosed with COVID 19 on 09/01. States cough is no productive, denies any other symptoms. Did see Dr Barrera a few days ago and was prescribed prednisone and tessalon perles. States no significant improvement in symptoms. Is requesting a CXR. No fever, n/v/d, chest pains, SOB, body aches, fatigue, headache, orthopnea, or any other associated symptoms or complaints. HISTORY OF PRESENTING ILLNESS FAWN is a 87 year old Male and was seen by me at 23-Sep-2022 09:04. Triage Information: Most recent Vital Sign Value Date PAST MEDICAL HISTORY ALLERGIES/INTOLERANCE S: No Known Allergies HEALTH HISTORY: Medical History Name:CAD (coronary artery disease) Code:I25.10 Name:GERD (gastroesophageal reflux disease) Code:K21.9 Name:Hypertension Code:I10 Name:Hypercholesterol emia Code:E78.00 Name:PAD (peripheral artery disease) Code:I73.9 OUTPATIENT MEDICATIONS: Home Medications Review Status for Reconciliation: Complete Med Status: Patient Currently Takes Medications Drug Name: Metoprolol Tartrate 50 mg oral tablet Instructions: 1 tab(s) orally 2 times a day Drug Name: amLODIPine 5 mg oral tablet Instructions: 1 tab(s) orally once a day Drug Name: pravastatin 40 mg oral tablet Instructions: 1 tab(s) orally once a day (at bedtime) Drug Name: omeprazole 40 mg oral delayed release capsule Instructions: 1 cap(s) orally once a day Drug Name: benazepril 20 mg oral tablet Instructions: 2 tab(s) orally once a day Drug Name: Flomax 0.4 mg oral capsule Instructions: 2 cap(s) orally once a day Drug Name: folic acid 1 mg oral tablet Instructions: 2 tab(s) orally once a day Drug Name: methotrexate 2.5 mg oral tablet Instructions: 6 tab(s) orally once a week Drug Name: aspirin 325 mg oral delayed release tablet Instructions: 1 tab(s) orally once a day Drug Name: benzonatate 200 mg oral capsule Instructions: 1 cap(s) orally once a day SIGNIFICANT EVENTS: Clinical Events Description:Surgical Procedure Additional Notes:1. L REVERSE TSR; Immunizations Description:SARS-CoV- 2 (COVID-19) Description:SARS-CoV- 2 (COVID-19) Description:SARS-CoV- 2 (COVID-19) Past Medical History Description:Arthritis Description:High BP Description:GERD Description:Ocular Migraines Description:Left Hip Pain REVIEW OF SYSTEMS All other systems reviewed and are negative REVIEW OF SYSTEMS: Comments See HPI PHYSICAL EXAM CONSTITUTIONAL: Well appearing, well nourished, awake, alert, oriented to person, place, time/situation and in no apparent distress. HENMT: Airway patent, ears with clear tympanic membranes bilaterally. Nasal mucosa clear. Mouth with normal mucosa. Throat has no vesicles, no oropharyngeal exudates and uvula is midline. Face with no lymph node enlargement. EYES: Clear bilaterally, pupils equal, round and reactive to light. CARDIOVASCULAR: Normal rate, regular rhythm. Heart sounds S1, S2. No murmurs, rubs or gallops. PMI non-displaced. RESPIRATORY: Breath sounds clear and equal bilaterally. NEUROLOGICAL: Alert and oriented, no focal deficits, no motor or sensory deficits. SKIN: Skin normal color for race, warm, dry and intact. No evidence of trauma. PSYCHIATRIC: Alert and oriented to person, place, time/situation. normal mood and affect. No apparent risk to self or others. CRITICAL CARE RESULTS: Radiology Results: Impression: Normal heart size and pulmonary vessels The lungs are clear revealing no evidence of infiltrate to suggest pneumonia which was the clinical question Old right-sided rib fractures There appears to have been in the interval from the previous exam a left shoulder replacement. Signed by Russell Coleman MD Xray Chest 2 View PA + Lateral [Sep 23 2022 9:49AM] VITAL SIGNS: T PRBP SpO2O2(LPM) %FiO2 Method 23-Sep-2022 08:31:[id number]/ 85 96 MDM MDM/ED COURSE: Discussed Findings with: patient Data Reviewed: vital signs (CXR) Treatment Plan: Encouraged pt to continue meds as prescribed by PCP. Patient's clinical presentation is otherwise unremarkable at this time. Patient is discharged with instructions to follow-up with primary care or seek emergency medical attention for worsening symptoms or any new concerns. DISPOSITION Diagnosis/Annotation: ED Dx Name:Acute bronchitis Code:J20.9 Disposition: discharged Type: home CONSULT CRITICAL CARE TIME Is this a critically ill patient: no Electronic Signatures: Heike Adams (GRAPHIC DESIGN ASSISTANT-CLAIM TAKER) (Signed 23-Sep-2022 10:09) Authored: ED Notes, HPI, PMH, ROS, PE, Results/Vital Signs, MDM/ED Course, Clinical Impression, Attestation, Chart Review, Scores Last Updated: 23-Sep-2022 10:09 by Daniella (more content not included)... Normal [facility] Tobacco Screening.on 022 Fall risk assessment a) No falls within the last year [facility] [employer] Work Phone: Tobacco use status CPHS b) No MP-Cardiology- [employer] [place] Work Phone: IO UA (automated w/o microsc opy)on 05-17-2022 Protein (U) [Mass/Vol] Negative MP -Cardiology[address] Work Phone: IO UA (automated w/o microscopy) Negative -[address] Work Phone: IO UA (automated w/o microscopy) Normal (0.2-1.0 mg/dl) MP-[address] Work Phone: IO UA (automated w/o microscopy) 5.0 1 -Cardiology[address] Work Phone: IO UA (automated w/o microscopy) 1.020 1 -[address] Work Phone: IO UA (automated w/o microscopy) Clear -[address] Work Phone: IO UA (automated w/o microscopy) Yellow -[address] Work Phone: Tobacco Screening.on 022 Adult depression screening assessment No [facility] [address] Work Phone: Fall risk assessment a) No falls within the last year [address] Work Phone: Tobacco use status CP b) No -[address] Work Phone: Tobacco Screening.on 022 Adult depression screening assessment No [employer] [facility] Work Phone: Fall risk assessment a) No falls within the last year [employer] [facility] Work Phone: Tobacco use status CPHS b) No [employer] [facility] Work Phone: Complete Blood Count + Diffe rentialon 04-21-2022 Basophils/100 WBC (Bld) 1.0 % 0.0 - 2.0 [employer] [facility] Work Phone: Erythrocyte distribution width (RBC) [Ratio] 14.3 % See Below [facility] Work Phone: Comment on above: Reference Range: 11. 5 - 14.5 Hematocrit (Bld) [Volume fraction] 38.2 % below low threshold See Below [facility] Work Phone: Comment on above: Reference Range: 41. 0 - 52.0 Hemoglobin (Bld) [Mass/Vol] 12.9 g/dL below low threshold See Below [email or web address] Work Phone: Comment on above: Reference Range: 13. 5 - 17.5 Lymphocytes/100 WBC (Bld) 19.7 % See Below [facility] Work Phone: Comment on above: Reference Range: 13. 0 - 44.0 MCHC (RBC) [Mass/Vol] 33.9 g/dL See Below [facility] [employer] [facility] Work Phone: Comment on above: Reference Range: 32. 0 - 36.0 MCV (RBC) [Entitic vol] 99 fL 80 - 100 [email or web address] [facility] Work Phone: Monocytes/100 WBC (Bld) 7.8 % 2.0 - 10.0 [facility] Work Phone: Neutrophils/100 WBC (Bld) 65.9 % See Below [facility] Work Phone: Comment on above: Reference Range: 40. 0 - 80.0 Platelets (Bld) [#/Vol] 251 10*3/uL 150 - 450 -[employer] [facility] Work Phone: RBC (Bld) [#/Vol] 3.87 {x10E12/L} below low threshold See Below [facility] Work Phone: Comment on above: Reference Range: 4.5 0 - 5.90 WBC (Bld) [#/Vol] 7.0 10*3/uL 4.4 - 11.3 [facility] Work Phone: Complete Blood Count + Differential 0.10 {x10E9/L} See Below [facility] Work Phone: Comment on above: Reference Range: 0.0 0 - 0.10 Complete Blood Count + Differential 0.40 {x10E9/L} See Below [facility] Work Phone: Comment on above: Reference Range: 0.0 0 - 0.40 Complete Blood Count + Differential 0.60 {x10E9/L} See Below [facility] Work Phone: Comment on above: Reference Range: 0.0 5 - 0.80 Complete Blood Count + Differential 1.40 {x10E9/L} See Below [facility] Work Phone: Comment on above: Reference Range: 0.8 0 - 3.00 Complete Blood Count + Differential 4.60 {x10E9/L} See Below [facility] Work Phone: Comment on above: Reference Range: 1.6 0 - 5.50 Percent differential counts (%) should be interpreted in the context of the absolute cell counts (cells/L). Complete Blood Count + Differential 5.6 % 0.0 - 6.0 [facility] Work Phone: Complete Blood Count + Differential 0.2 {/100_WBC} [facility] Work Phone: Laboratory - Chemistry and C hemistry - challengeon 04-21-2022 Albumin BCP dye [Mass/Vol] 3.8 g/dL 3.4 - 5.0 [facility] Work Phone: ALP [Catalytic activity/Vol] 71 U/L 33 - 136 [facility] Work Phone: ALT With P-5'-P [Catalytic activity/Vol] 13 U/L 10 - 52 [facility] Work Phone: Comment on above: Patients treated wit h Sulfasalazine may generate falsely decreased results for ALT. Anion gap [Moles/Vol] 10 mmol/L 10 - 20 [facility] Work Phone: AST With P-5'-P [Catalytic activity/Vol] 16 U/L 9 - 39 [facility] Work Phone: Bilirubin [Mass/Vol] 0.8 mg/dL 0.0 - 1.2 - [facility] Work Phone: Calcium [Mass/Vol] 8.5 mg/dL below low threshold 8.6 - 10.3 [facility] Work Phone: Chloride [Moles/Vol] 110 mmol/L above high threshold 98 - 107 [facility] Work Phone: CO2 [Moles/Vol] 25 mmol/L 21 - 32 -[facility] Work Phone: Creatinine [Mass/Vol] 0.91 mg/dL See Below [facility] Work Phone: Comment on above: Reference Range: 0.5 0 - 1.30 Glucose [Mass/Vol] 87 mg/dL 74 - 99 [facility] Work Phone: Potassium [Moles/Vol] 4.1 mmol/L 3.5 - 5.3 [facility] Work Phone: Protein [Mass/Vol] 5.5 g/dL below low threshold 6.4 - 8.2 [facility] Work Phone: Sodium [Moles/Vol] 141 mmol/L 136 - 145 [facility] Work Phone: Urea nitrogen [Mass/Vol] 29 mg/dL above high threshold 6 - 23 [facility] Work Phone: Lipid Panelon 04-21-2022 Cholesterol [Mass/Vol] 127 mg/dL 0 - 199 [employer] [facility] Work Phone: Comment on above: . AGE DESIRABLE BORD FARHEEN HIGH HIGH 0-19 Y 0 - 169 170 - 199 >/= 200 20-24 Y 0 - 189 190 - 224 >/= 225 >24 Y 0 - 199 200 - 239 >/= 240 All ranges are based on fasting samples. Specific therapeutic targets will vary based on patient-specific cardiac risk.. Pediatric guidelines reference:Pediatrics 2011, 128(S5). Adult guidelines reference: NCEP ATPIII Guidelines, MELL 2001, 258:2486-97. Venipuncture immediately after or during the administration of Metamizole may lead to falsely low results. Testing should be performed immediately prior to Metamizole dosing. Cholesterol in HDL [Mass/Vol] 42.0 mg/dL [employer] [facility] Work Phone: Comment on above: . AGE VERY LOW LOW N ORMAL HIGH 0-19 Y < 35 < 40 40-45 ---- 20-24 Y ---- < 40 >45 ---- >24 Y ---- < 40 40-60 >60. Cholesterol in LDL [Mass/Vol] 73 mg/dL 0 - 99 [employer] [facility] Work Phone: Comment on above: . NEAR BORD AGE CHERYL RABLE OPTIMAL HIGH HIGH VERY HIGH 0-19 Y 0 - 109 --- 110-129 >/= 130 ---- 20-24 Y 0 - 119 --- 120-159 >/= 160 ---- >24 Y 0 - 99 100-129 130-159 160-189 >/=190. Cholesterol.total/Chol esterol in HDL [Mass ratio] 3.0 {ratio} [employer] [facility] Work Phone: Comment on above: REF VALUESDESIRABLE < 3.4HIGH RISK > 5.0 Triglyceride [Mass/Vol] 60 mg/dL 0 - 149 [employer] [facility] Work Phone: Comment on above: . AGE DESIRABLE BORD FARHEEN HIGH HIGH VERY HIGH 0 D-90 D 19 - 174 ---- ---- ----91 D- 9 Y 0 - 74 75 - 99 >/= 100 ---- 10-19 Y 0 - 89 90 - 129 >/= 130 ---- 20-24 Y 0 - 114 115 - 149 >/= 150 ---- >24 Y 0 - 149 150 - 199 200- 499 >/= 500. Venipuncture immediately after or during the administration of Metamizole may lead to falsely low results. Testing should be performed immediately prior to Metamizole dosing. Lipid Panel 12 mg/dL 0 - 40 [email or web address] [facility] Work Phone: No Panel Informationon 04-21 82 {mL/min/1.73m2} >90 [employer] [facility] Work Phone: Comment on above: CALCULATIONS OF LEONIDES MATED GFR ARE PERFORMED USING THE 2020 CKD-EPI STUDY REFIT EQUATION WITHOUT THE RACE VARIABLE FOR THE IDMS-TRACEABLE CREATININE METHODS.https://jasn.asnjournals.org/content//A SN.8302928526 Prostate Spec.Ag, Screenon 0 04-21-2022 Prostate specific Ag [Mass/Vol] 0.29 ng/mL See Below [facility] [place] Work Phone: Comment on above: Reference Range: 0.0 0 - 4.00The FDA requires that the method used for PSA assay be reported to the physician. Values obtained with different assay methods must not be used interchangeably. This testwas performed at [facility] using the Access P[employer]reebritech PSA assay is a two-site immunoenzymatic sandwich assay. The assay is approved for measurement of prostate-specific antigen (PSA)in serum and may be used in conjunction with a digital rectal examination in men 50 years and older as an aid in detection of prostate cancer.5-Aobqx-fruhqdloy inhibitors (e.g. Proscar, Finasteride, Avodart, Dutasteride and Suzy) for the treatment of BPH have been shown to lower PSA levels by an average of 50% after 6 months of treatment. Vitamin B12, Serumon 022 Cobalamin (Vitamin B12) [Mass/Vol] 686 pg/mL 211 - 911 [facility] Work Phone: Complete Blood Count + Gina lopez 03-31-2022 Basophils/100 WBC (Bld) 0.9 % 0.0 - 2.0 [facility] Work Phone: Erythrocyte distribution width (RBC) [Ratio] 14.0 % See Below [facility] Work Phone: Comment on above: Reference Range: 11. 5 - 14.5 Hematocrit (Bld) [Volume fraction] 39.8 % below low threshold See Below [facility] Work Phone: Comment on above: Reference Range: 41. 0 - 52.0 Hemoglobin (Bld) [Mass/Vol] 13.6 g/dL See Below [facility] Work Phone: Comment on above: Reference Range: 13. 5 - 17.5 Lymphocytes/100 WBC (Bld) 15.8 % See Below [facility] Work Phone: Comment on above: Reference Range: 13. 0 - 44.0 MCHC (RBC) [Mass/Vol] 34.3 g/dL See Below [facility] [employer] [facility] Work Phone: Comment on above: Reference Range: 32. 0 - 36.0 MCV (RBC) [Entitic vol] 98 fL 80 - 100 -[employer] [facility] Work Phone: Monocytes/100 WBC (Bld) 8.8 % 2.0 - 10.0 [facility] Work Phone: Neutrophils/100 WBC (Bld) 71.4 % See Below [facility] Work Phone: Comment on above: Reference Range: 40. 0 - 80.0 Platelets (Bld) [#/Vol] 266 10*3/uL 150 - 450 [facility] Work Phone: RBC (Bld) [#/Vol] 4.05 {x10E12/L} below low threshold See Below [facility] Work Phone: Comment on above: Reference Range: 4.5 0 - 5.90 WBC (Bld) [#/Vol] 7.3 10*3/uL 4.4 - 11.3 [facility] [place] Work Phone: Complete Blood Count + Differential 0.10 {x10E9/L} See Below [facility] Work Phone: Comment on above: Reference Range: 0.0 0 - 0.10 Complete Blood Count + Differential 0.20 {x10E9/L} See Below [facility] Work Phone: Comment on above: Reference Range: 0.0 0 - 0.40 Complete Blood Count + Differential 0.60 {x10E9/L} See Below [facility] Work Phone: Comment on above: Reference Range: 0.0 5 - 0.80 Complete Blood Count + Differential 1.20 {x10E9/L} See Below [facility] Work Phone: Comment on above: Reference Range: 0.8 0 - 3.00 Complete Blood Count + Differential 5.20 {x10E9/L} See Below [facility] Work Phone: Comment on above: Reference Range: 1.6 0 - 5.50 Percent differential counts (%) should be interpreted in the context of the absolute cell counts (cells/L). Complete Blood Count + Differential 3.1 % 0.0 - 6.0 [facility] [place] Work Phone: Laboratory - Chemistry and C hemistry - challengeon 03-31-2022 Albumin BCP dye [Mass/Vol] 4.1 g/dL 3.4 - 5.0 [facility] Work Phone: ALP [Catalytic activity/Vol] 80 U/L 33 - 136 [facility] Work Phone: ALT With P-5'-P [Catalytic activity/Vol] 13 U/L 10 - 52 [facility] Work Phone: Comment on above: Patients treated wit h Sulfasalazine may generate falsely decreased results for ALT. Anion gap [Moles/Vol] 10 mmol/L 10 - 20 [facility] Work Phone: AST With P-5'-P [Catalytic activity/Vol] 16 U/L 9 - 39 [facility] Work Phone: Bilirubin [Mass/Vol] 0.8 mg/dL 0.0 - 1.2 [facility] Work Phone: Calcium [Mass/Vol] 8.8 mg/dL 8.6 - 10.3 [facility] Work Phone: Chloride [Moles/Vol] 105 mmol/L 98 - 107 [facility] Work Phone: CO2 [Moles/Vol] 27 mmol/L 21 - 32 [facility] Work Phone: Creatinine [Mass/Vol] 0.92 mg/dL See Below [facility] Work Phone: Comment on above: Reference Range: 0.5 0 - 1.30 Glucose [Mass/Vol] 87 mg/dL 74 - 99 -[facility] Work Phone: Potassium [Moles/Vol] 4.1 mmol/L 3.5 - 5.3 - [facility] Work Phone: Protein [Mass/Vol] 5.9 g/dL below low threshold 6.4 - 8.2 [facility] Work Phone: Sodium [Moles/Vol] 138 mmol/L 136 - 145 [facility] Work Phone: Urea nitrogen [Mass/Vol] 23 mg/dL 6 - 23 [facility] Work Phone: No Panel Informationon 03-31 81 {mL/min/1.73m2} >90 [facility] [employer] [facility] Work Phone: Comment on above: CALCULATIONS OF LEONIDES MATED GFR ARE PERFORMED USING THE 2020 CKD-EPI STUDY REFIT EQUATION WITHOUT THE RACE VARIABLE FOR THE IDMS-TRACEABLE CREATININE METHODS.https://jasn.asnjournals.org/content//A SN.1651605214 Tobacco Screening.on Adult depression screening assessment No [facility] [employer] [facility] Work Phone: Fall risk assessment a) No falls within the last year [facility] [employer] [facility] Work Phone: Tobacco use status CPHS b) No [facility] [facility] Work Phone: Radiologyon 11-17-2021 XR Femur 2 Views Normal -[facility] Work Phone: Tobacco Screening.on 022 Fall risk assessment a) No falls within the last year [facility] [employer] [facility] Work Phone: Tobacco use status CPHS b) No [email or web address] [facility] Work Phone: MRI L Spine without Contrast on 10-06-2021 MR Lumbar spine WO contrast Normal [employer] [facility] Work Phone: Complete Blood Count + Diffe rentialon 10-04-2021 Basophils/100 WBC (Bld) 0.6 % 0.0 - 2.0 [employer] [facility] Work Phone: Erythrocyte distribution width (RBC) [Ratio] 13.9 % See Below [employer] [facility] [facility] Work Phone: Comment on above: Reference Range: 11. 5 - 14.5 Hematocrit (Bld) [Volume fraction] 40.7 % below low threshold See Below [employer] [facility] Work Phone: Comment on above: Reference Range: 41. 0 - 52.0 Hemoglobin (Bld) [Mass/Vol] 13.5 g/dL See Below [facility] Work Phone: Comment on above: Reference Range: 13. 5 - 17.5 Lymphocytes/100 WBC (Bld) 12.1 % See Below [facility]ITAL[facility] [employer] [facility] Work Phone: Comment on above: Reference Range: 13. 0 - 44.0 MCHC (RBC) [Mass/Vol] 33.2 g/dL See Below [facility] Work Phone: Comment on above: Reference Range: 32. 0 - 36.0 MCV (RBC) [Entitic vol] 101 fL above high threshold 80 - 100 [facility] Work Phone: Monocytes/100 WBC (Bld) 10.2 % 2.0 - 10.0 [facility] Work Phone: Neutrophils/100 WBC (Bld) 75.1 % See Below [facility] Work Phone: Comment on above: Reference Range: 40. 0 - 80.0 Platelets (Bld) [#/Vol] 251 10*3/uL 150 - 450 [facility] Work Phone: RBC (Bld) [#/Vol] 4.04 {x10E12/L} below low threshold See Below [email or web address] [facility] Work Phone: Comment on above: Reference Range: 4.5 0 - 5.90 WBC (Bld) [#/Vol] 7.1 10*3/uL 4.4 - 11.3 [facility] Work Phone: Complete Blood Count + Differential 0.00 {x10E9/L} See Below [facility] [employer] [facility] Work Phone: Comment on above: Reference Range: 0.0 0 - 0.10 Complete Blood Count + Differential 0.10 {x10E9/L} See Below [facility] [employer] [facility] Work Phone: Comment on above: Reference Range: 0.0 0 - 0.40 Complete Blood Count + Differential 0.70 {x10E9/L} See Below [email or web address] [facility] Work Phone: Comment on above: Reference Range: 0.0 5 - 0.80 Complete Blood Count + Differential 0.90 {x10E9/L} See Below [facility] Work Phone: Comment on above: Reference Range: 0.8 0 - 3.00 Complete Blood Count + Differential 5.30 {x10E9/L} See Below [facility] Work Phone: Comment on above: Reference Range: 1.6 0 - 5.50 Percent differential counts (%) should be interpreted in the context of the absolute cell counts (cells/L). Complete Blood Count + Differential 2.0 % 0.0 - 6.0 [facility] Work Phone: Complete Blood Count + Differential 0.1 {/100_WBC} [facility] Work Phone: Laboratory - Chemistry and C hemistry - challengeon 10-04-2021 Albumin BCP dye [Mass/Vol] 3.8 g/dL 3.4 - 5.0 [facility] Work Phone: ALP [Catalytic activity/Vol] 63 U/L 33 - 136 [facility] Work Phone: ALT With P-5'-P [Catalytic activity/Vol] 16 U/L 10 - 52 [facility] Work Phone: Comment on above: Patients treated wit h Sulfasalazine may generate falsely decreased results for ALT. Anion gap [Moles/Vol] 8 mmol/L below low threshold 10 - 20 [facility] Work Phone: AST With P-5'-P [Catalytic activity/Vol] 19 U/L 9 - 39 [facility] Work Phone: Bilirubin [Mass/Vol] 0.8 mg/dL 0.0 - 1.2 [employer] [facility] Work Phone: Calcium [Mass/Vol] 8.6 mg/dL 8.6 - 10.3 [employer] [facility] Work Phone: Chloride [Moles/Vol] 106 mmol/L 98 - 107 [employer] [facility] Work Phone: CO2 [Moles/Vol] 28 mmol/L 21 - 32 [facility] [employer] [facility] Work Phone: Creatinine [Mass/Vol] 0.89 mg/dL See Below [employer] [facility] Work Phone: Comment on above: Reference Range: 0.5 0 - 1.30 Glucose [Mass/Vol] 84 mg/dL 74 - 99 Wimdu [employer] [facility] Work Phone: Potassium [Moles/Vol] 3.8 mmol/L 3.5 - 5.3 [employer] [facility] Work Phone: Protein [Mass/Vol] 5.7 g/dL below low threshold 6.4 - 8.2 [employer] [facility] Work Phone: Sodium [Moles/Vol] 138 mmol/L 136 - 145 Wimdu [employer] [facility] Work Phone: Urea nitrogen [Mass/Vol] 23 mg/dL 6 - 23 [employer] [facility] Work Phone: No Panel Informationon 10-04 >60 >60 [employer] [facility] Work Phone: Comment on above: CALCULATIONS OF LEONIDES MATED GFR ARE PERFORMED USING THE MDRD STUDY EQUATION FOR THE IDMS-TRACEABLE CREATININE METHODS. CLIN CHEM 2007;53:766-72 Tobacco Screening.on 021 Fall risk assessment a) No falls within the last year [facility] Work Phone: Tobacco use status CP b) No [facility] Work Phone: IO UA (automated w/o microsc opy)on 05-18-2021 Protein (U) [Mass/Vol] Negative -[facility] Work Phone: IO UA (automated w/o microscopy) Negative VW-Ryzzunp-Jdj [facility] Work Phone: IO UA (automated w/o microscopy) Normal (0.2-1.0 mg/dl) VQ-Gmaswpy-Vom land Work Phone: IO UA (automated w/o microscopy) 5.5 1 WF-Ybvnwbn-Wcb land Work Phone: IO UA (automated w/o microscopy) 1.030 1 BI-Zpmmgfj-Tpq land Work Phone: IO UA (automated w/o microscopy) Clear UO-Byiveex-Gub land Work Phone: IO UA (automated w/o microscopy) Yellow WX-Bngysot-Hqh land Work Phone: Tobacco Screening.on 021 Fall risk assessment a) No falls within the last year KK-Rganthq[facility] Work Phone: Tobacco use status CPHS b) No PG-Xesedmu-Kov [facility] Work Phone: LDL, Direct, Serumon 021 Cholesterol in LDL [Mass/Vol] 100 mg/dL 0 - 129 [employer] [facility] Work Phone: Comment on above: Elevated levels of L DL cholesterol are recognized as a de jesus factor in the development of atherosclerosis and CHD. The direct LDL cholesterol test can be used to assess cardiovascular risk and monitor therapy as a follow up to a lipid profile when triglycerides are significantly elevated. Laboratory - Chemistry and C hemistry - challengeon 05-11-2021 Albumin BCP dye [Mass/Vol] 3.8 g/dL 3.4 - 5.0 [employer] [facility] Work Phone: ALP [Catalytic activity/Vol] 61 U/L 33 - 136 [employer] [facility] Work Phone: ALT With P-5'-P [Catalytic activity/Vol] 19 U/L 10 - 52 [facility] Work Phone: Comment on above: Patients treated wit h Sulfasalazine may generate falsely decreased results for ALT. Anion gap [Moles/Vol] 11 mmol/L 10 - 20 [facility] Work Phone: AST With P-5'-P [Catalytic activity/Vol] 19 U/L 9 - 39 [facility] Work Phone: Bilirubin [Mass/Vol] 0.9 mg/dL 0.0 - 1.2 - edical [facility] Work Phone: Calcium [Mass/Vol] 8.3 mg/dL below low threshold 8.6 - 10.3 -[facility] Work Phone: Chloride [Moles/Vol] 109 mmol/L above high threshold 98 - 107 [facility] Work Phone: CO2 [Moles/Vol] 25 mmol/L 21 - 32 -[facility] l [facility] Work Phone: Creatinine [Mass/Vol] 0.93 mg/dL See Below - [facility] Work Phone: Comment on above: Reference Range: 0.5 0 - 1.30 Glucose [Mass/Vol] 90 mg/dL 74 - 99 [facility] ical [facility] Work Phone: Potassium [Moles/Vol] 3.9 mmol/L 3.5 - 5.3 - [facility] Work Phone: Protein [Mass/Vol] 5.5 g/dL below low threshold 6.4 - 8.2 -[facility] Work Phone: Sodium [Moles/Vol] 141 mmol/L 136 - 145 -[facility] ical [facility] Work Phone: Urea nitrogen [Mass/Vol] 26 mg/dL above high threshold 6 - 23 [facility] Work Phone: No Panel Informationon 05-11 >60 >60 [employer] [facility] Work Phone: Comment on above: CALCULATIONS OF LEONIDES MATED GFR ARE PERFORMED USING THE MDRD STUDY EQUATION FOR THE IDMS-TRACEABLE CREATININE METHODS. CLIN CHEM 2007;53:766-72 Prostate Spec.Ag, Screenon 0 05-11-2021 Prostate specific Ag [Mass/Vol] 0.25 ng/mL See Below [employer] [facility] Work Phone: Comment on above: Reference Range: 0.0 0 - 4.00The FDA requires that the method used for PSA assay be reported to the physician. Values obtained with different assay methods must not be used interchangeably. [facility]was [facility] using the Woisio PSA assay is a two-site immunoenzymatic sandwich assay. The assay is approved for measurement of prostate-specific antigen (PSA)in serum and may be used in conjunction with a digital rectal examination in men 50 years and older as an aid in detection of prostate cancer.8-Etslc-dhktjygqb inhibitors (e.g. Proscar, Finasteride, Avodart, Dutasteride and Suzy) for the treatment of BPH have been shown to lower PSA levels by an average of 50% after 6 months of treatment. Ultrasound Abdomen Aortaon 0 05-11-2021 Ultrasound Abdomen Aorta Normal [employer] [facility] Work Phone: Ultrasound Abdomen Aorta Please click on the link to view the study images Normal [employer] [facility] Work Phone: ECG 12-LEADOrdered By: Heather Paredes on 05-09-2021 Atrial Rate [facility] P [place] [facility] P-R Interval [facility] Q-T Interval [facility] Q-T Interval (corrected) [facility] QRS Duration [facility] QTC Calculation (Bezet) [facility] R [place] [facility] T [place] [facility] Ventricular Rate [facility] Tobacco Screening.on 021 Fall risk assessment a) No falls within the last year [employer] [facility] Work Phone: Tobacco use status CPHS b) No [employer] [facility] Work Phone: Complete Blood Count + Gina lopez 04-19-2021 Basophils/100 WBC (Bld) 0.4 % 0.0 - 2.0 -[facility] Work Phone: Erythrocyte distribution width (RBC) [Ratio] 13.4 % See Below [facility] Work Phone: Comment on above: Reference Range: 11. 5 - 14.5 Hematocrit (Bld) [Volume fraction] 41.4 % See Below [facility] Work Phone: Comment on above: Reference Range: 41. 0 - 52.0 Hemoglobin (Bld) [Mass/Vol] 13.6 g/dL See Below [facility]ITALAridis Pharm[facility] Work Phone: Comment on above: Reference Range: 13. 5 - 17.5 Lymphocytes/100 WBC (Bld) 11.6 % See Below [facility] Work Phone: Comment on above: Reference Range: 13. 0 - 44.0 MCHC (RBC) [Mass/Vol] 32.9 g/dL See Below [facility] [employer] [facility] Work Phone: Comment on above: Reference Range: 32. 0 - 36.0 MCV (RBC) [Entitic vol] 101 fL above high threshold 80 - 100 [email or web address] [facility] Work Phone: Monocytes/100 WBC (Bld) 7.3 % 2.0 - 10.0 [facility]ITALAridis Pharm[facility] Work Phone: Neutrophils/100 WBC (Bld) 78.9 % See Below [facility]ITAL[facility] Pharm[facility] Work Phone: Comment on above: Reference Range: 40. 0 - 80.0 Platelets (Bld) [#/Vol] 214 10*3/uL 150 - 450 [facility]ITALAridis Pharm[facility] Work Phone: RBC (Bld) [#/Vol] 4.10 {x10E12/L} below low threshold See Below [facility]ITAL[facility] Pharm[facility] Work Phone: Comment on above: Reference Range: 4.5 0 - 5.90 WBC (Bld) [#/Vol] 7.2 10*3/uL 4.4 - 11.3 [facility] Work Phone: Complete Blood Count + Differential 0.00 {x10E9/L} See Below [facility] Work Phone: Comment on above: Reference Range: 0.0 0 - 0.10 Complete Blood Count + Differential 0.10 {x10E9/L} See Below [facility] Work Phone: Comment on above: Reference Range: 0.0 0 - 0.40 Complete Blood Count + Differential 0.50 {x10E9/L} See Below [facility] Work Phone: Comment on above: Reference Range: 0.0 5 - 0.80 Complete Blood Count + Differential 0.80 {x10E9/L} See Below [facility] Work Phone: Comment on above: Reference Range: 0.8 0 - 3.00 Complete Blood Count + Differential 5.70 {x10E9/L} above high threshold See Below [facility] Work Phone: Comment on above: Reference Range: 1.6 0 - 5.50 Percent differential counts (%) should be interpreted in the context of the absolute cell counts (cells/L). Complete Blood Count + Differential 1.8 % 0.0 - 6.0 [facility] Work Phone: Complete Blood Count + Differential 0.2 {/100_WBC} [facility] Work Phone: Laboratory - Chemistry and C hemistry - challengeon 04-19-2021 Albumin BCP dye [Mass/Vol] 3.8 g/dL 3.4 - 5.0 [facility] Work Phone: ALP [Catalytic activity/Vol] 64 U/L 33 - 136 [facility] Work Phone: ALT With P-5'-P [Catalytic activity/Vol] 23 U/L 10 - 52 [facility] Work Phone: Comment on above: Patients treated wit h Sulfasalazine may generate falsely decreased results for ALT. Anion gap [Moles/Vol] 10 mmol/L 10 - 20 [facility] Work Phone: AST With P-5'-P [Catalytic activity/Vol] 21 U/L 9 - 39 [facility] Work Phone: Bilirubin [Mass/Vol] 0.7 mg/dL 0.0 - 1.2 [facility] Work Phone: Calcium [Mass/Vol] 8.6 mg/dL 8.6 - 10.3 [facility] Work Phone: Chloride [Moles/Vol] 106 mmol/L 98 - 107 [facility] [employer] [facility] Work Phone: CO2 [Moles/Vol] 25 mmol/L 21 - 32 [facility] Work Phone: Creatinine [Mass/Vol] 0.94 mg/dL See Below [facility] Work Phone: Comment on above: Reference Range: 0.5 0 - 1.30 Glucose [Mass/Vol] 152 mg/dL above high threshold 74 - 99 -[facility] Work Phone: Potassium [Moles/Vol] 3.8 mmol/L 3.5 - 5.3 - [facility] Work Phone: Protein [Mass/Vol] 5.6 g/dL below low threshold 6.4 - 8.2 [facility] Work Phone: Sodium [Moles/Vol] 137 mmol/L 136 - 145 -[facility] ical [facility] Work Phone: Urea nitrogen [Mass/Vol] 22 mg/dL 6 - 23 -[employer] [facility] Work Phone: No Panel Informationon 04-19 >60 >60 [facility] [employer] [facility] Work Phone: Comment on above: CALCULATIONS OF LEONIDES MATED GFR ARE PERFORMED USING THE MDRD STUDY EQUATION FOR THE IDMS-TRACEABLE CREATININE METHODS. CLIN CHEM 2007;53:766-72 Laboratory - Chemistry and C hemistry - challengeon 04-13-2021 Albumin BCP dye [Mass/Vol] 3.8 g/dL 3.4 - 5.0 [employer] [facility] Work Phone: ALP [Catalytic activity/Vol] 68 U/L 33 - 136 [facility] Work Phone: ALT With P-5'-P [Catalytic activity/Vol] 27 U/L 10 - 52 [facility] Work Phone: Comment on above: Patients treated wit h Sulfasalazine may generate falsely decreased results for ALT. Anion gap [Moles/Vol] 9 mmol/L below low threshold 10 - 20 [employer] [facility] Work Phone: AST With P-5'-P [Catalytic activity/Vol] 23 U/L 9 - 39 [facility]ITALAr[facility] Pharm[facility] Work Phone: Bilirubin [Mass/Vol] 0.8 mg/dL 0.0 - 1.2 [employer] [facility] Work Phone: Calcium [Mass/Vol] 8.6 mg/dL 8.6 - 10.3 -[facility] ical [employer] [facility] Work Phone: Chloride [Moles/Vol] 107 mmol/L 98 - 107 [employer] [facility] Work Phone: CO2 [Moles/Vol] 27 mmol/L 21 - 32 -Medica l [employer] [facility] Work Phone: Creatinine [Mass/Vol] 0.92 mg/dL See Below [employer] [facility] Work Phone: Comment on above: Reference Range: 0.5 0 - 1.30 Glucose [Mass/Vol] 88 mg/dL 74 - 99 [employer] [facility] Work Phone: Potassium [Moles/Vol] 4.0 mmol/L 3.5 - 5.3 [employer] [facility] Work Phone: Protein [Mass/Vol] 5.6 g/dL below low threshold 6.4 - 8.2 [employer] [facility] Work Phone: Sodium [Moles/Vol] 139 mmol/L 136 - 145 [employer] [facility] Work Phone: Urea nitrogen [Mass/Vol] 29 mg/dL above high threshold 6 - 23 [employer] [facility] Work Phone: Lipid Panelon 04-13-2021 Cholesterol [Mass/Vol] 135 mg/dL 0 - 199 [employer] [facility] Work Phone: Comment on above: . AGE DESIRABLE BORD FARHEEN HIGH HIGH 0-19 Y 0 - 169 170 - 199 >/= 200 20-24 Y 0 - 189 190 - 224 >/= 225 >24 Y 0 - 199 200 - 239 >/= 240 All ranges are based on fasting samples. Specific therapeutic targets will vary based on patient-specific cardiac risk.. Pediatric guidelines reference:Pediatrics 2011, 128(S5). Adult guidelines reference: NCEP ATPIII Guidelines, MELL 2001, 258:2486-97. Venipuncture immediately after or during the administration of Metamizole may lead to falsely low results. Testing should be performed immediately prior to Metamizole dosing. Cholesterol in HDL [Mass/Vol] 37.0 mg/dL Abnormal [employer] [facility] Work Phone: Comment on above: . AGE VERY LOW LOW N ORMAL HIGH 0-19 Y < 35 < 40 40-45 ---- 20-24 Y ---- < 40 >45 ---- >24 Y ---- < 40 40-60 >60. Cholesterol in LDL [Mass/Vol] 80 mg/dL 0 - 99 [employer] [facility] Work Phone: Comment on above: . NEAR BORD AGE CHERYL RABLE OPTIMAL HIGH HIGH VERY HIGH 0-19 Y 0 - 109 --- 110-129 >/= 130 ---- 20-24 Y 0 - 119 --- 120-159 >/= 160 ---- >24 Y 0 - 99 100-129 130-159 160-189 >/=190. Cholesterol.total/Chol esterol in HDL [Mass ratio] 3.6 {ratio} [employer] [facility] Work Phone: Comment on above: REF VALUESDESIRABLE < 3.4HIGH RISK > 5.0 Triglyceride [Mass/Vol] 90 mg/dL 0 - 149 [employer] [facility] Work Phone: Comment on above: . AGE DESIRABLE BORD FARHEEN HIGH HIGH VERY HIGH 0 D-90 D 19 - 174 ---- ---- ----91 D- 9 Y 0 - 74 75 - 99 >/= 100 ---- 10-19 Y 0 - 89 90 - 129 >/= 130 ---- 20-24 Y 0 - 114 115 - 149 >/= 150 ---- >24 Y 0 - 149 150 - 199 200- 499 >/= 500. Venipuncture immediately after or during the administration of Metamizole may lead to falsely low results. Testing should be performed immediately prior to Metamizole dosing. Lipid Panel 18 mg/dL 0 - 40 [employer] [facility] Work Phone: No Panel Informationon 04-13 >60 >60 [employer] [facility] Work Phone: Comment on above: CALCULATIONS OF LEONIDES MATED GFR ARE PERFORMED USING THE MDRD STUDY EQUATION FOR THE IDMS-TRACEABLE CREATININE METHODS. CLIN CHEM 2007;53:766-72 Complete Blood Count + Diffe rentialon 03-31-2020 Basophils (Bld) [#/Vol] 0.10 {x10E9/L} See Below [employer] [facility] Work Phone: Comment on above: Reference Range: 0.0 0 - 0.10 Ordering Provider: Yony BUENROSTRODER Ranjeet Basophils/100 WBC (Bld) 0.8 % 0.0 - 2.0 [email or web address] [facility] Work Phone: Comment on above: Ordering Provider: Yony Pollack Eosinophils (Bld) [#/Vol] 0.20 {x10E9/L} See Below [email or web address] [facility] Work Phone: Comment on above: Reference Range: 0.0 0 - 0.40 Ordering Provider: Yony Pollack Eosinophils/100 WBC (Bld) 2.8 % 0.0 - 6.0 [email or web address] [facility] Work Phone: Comment on above: Ordering Provider: Yony BUENROSTRODER Ranjeet Erythrocyte distribution width (RBC) [Ratio] 13.5 % See Below [email or web address] [facility] Work Phone: Comment on above: Reference Range: 11. 5 - 14.5 Ordering Provider: Yony Pollack Hematocrit (Bld) [Volume fraction] 41.2 % See Below [facility] Work Phone: Comment on above: Reference Range: 41. 0 - 52.0 Ordering Provider: Yony Pollack Hemoglobin (Bld) [Mass/Vol] 13.8 g/dL See Below [email or web address] [facility] Work Phone: Comment on above: Reference Range: 13. 5 - 17.5 Ordering Provider: Yony Pollack Lymphocytes (Bld) [#/Vol] 1.10 {x10E9/L} See Below [email or web address] [facility] Work Phone: Comment on above: Reference Range: 0.8 0 - 3.00 Ordering Provider: Yony Pollack Lymphocytes/100 WBC (Bld) 16.6 % See Below [facility] Work Phone: Comment on above: Reference Range: 13. 0 - 44.0 Ordering Provider: Yony DICKEYTAPAN BATES [id number] MCHC (RBC) [Mass/Vol] 33.4 g/dL See Below [facility] Work Phone: Comment on above: Reference Range: 32. 0 - 36.0 Ordering Provider: Yony DICKEYTAPAN BATES [id number] MCV (RBC) [Entitic vol] 99 fL 80 - 100 [facility] Work Phone: Comment on above: Ordering Provider: Yony DICKEYTAPAN BATES [id number] Monocytes (Bld) [#/Vol] 0.50 {x10E9/L} See Below [facility] Work Phone: Comment on above: Reference Range: 0.0 5 - 0.80 Ordering Provider: Yony DICKEYTAPAN BATES [id number] Monocytes/100 WBC (Bld) 7.4 % 2.0 - 10.0 [facility] Work Phone: Comment on above: Ordering Provider: Yony DEE Pollack Neutrophils (Bld) [#/Vol] 4.70 {x10E9/L} See Below [facility] Work Phone: Comment on above: Reference Range: 1.6 0 - 5.50 Percent differential counts (%) should be interpreted in the context of the absolute cell counts (cells/L). Ordering Provider: Yony DICKEYTAPAN Pollack Neutrophils/100 WBC (Bld) 72.4 % See Below [facility] Work Phone: Comment on above: Reference Range: 40. 0 - 80.0 Ordering Provider: Yony DEE Pollack Platelets (Bld) [#/Vol] 252 {x10E9/L} 150 - 450 [facility] Work Phone: Comment on above: Ordering Provider: Yony PRICE PAULO [id number] RBC (Bld) [#/Vol] 4.16 {x10E12/L} below low threshold See Below [facility] Work Phone: Comment on above: Reference Range: 4.5 0 - 5.90 Ordering Provider: Yony DEE BATES [id number] WBC (Bld) [#/Vol] 6.5 {x10E9/L} 4.4 - 11.3 [facility] Work Phone: Comment on above: Ordering Provider: Yony Pollack WBC (Bld) [#/Vol] 0.1 {/100_WBC} [facility] Work Phone: Comment on above: Ordering Provider: Yony Barbour287 Lipid Panelon 03-31-2020 Cholesterol [Mass/Vol] 147 mg/dL 0 - 199 [facility] Work Phone: Comment on above: . AGE DESIRABLE BORD FARHEEN HIGH HIGH 0-19 Y 0 - 169 170 - 199 >/= 200 20-24 Y 0 - 189 190 - 224 >/= 225 >24 Y 0 - 199 200 - 239 >/= 240 All ranges are based on fasting samples. Specific therapeutic targets will vary based on patient-specific cardiac risk.. Pediatric guidelines reference:Pediatrics 2011, 128(S5). Adult guidelines reference: NCEP ATPIII Guidelines, MELL 2001, 258:2486-97. Venipuncture immediately after or during the administration of Metamizole may lead to falsely low results. Testing should be performed immediately prior to Metamizole dosing. Cholesterol in HDL [Mass/Vol] 39.0 mg/dL Abnormal [facility] [place] Work Phone: Comment on above: . AGE VERY LOW LOW N ORMAL HIGH 0-19 Y < 35 < 40 40-45 ---- 20-24 Y ---- < 40 >45 ---- >24 Y ---- < 40 40-60 >60. Cholesterol in LDL [Mass/Vol] 87 mg/dL 0 - 99 [facility] [place] Work Phone: Comment on above: . NEAR BORD AGE CHERYL RABLE OPTIMAL HIGH HIGH VERY HIGH 0-19 Y 0 - 109 --- 110-129 >/= 130 ---- 20-24 Y 0 - 119 --- 120-159 >/= 160 ---- >24 Y 0 - 99 100-129 130-159 160-189 >/=190. Cholesterol.total/Chol esterol in HDL [Mass ratio] 3.8 {ratio} [employer] [facility] Work Phone: Comment on above: REF VALUESDESIRABLE < 3.4HIGH RISK > 5.0 Triglyceride [Mass/Vol] 106 mg/dL 0 - 149 [employer] [facility] Work Phone: Comment on above: . AGE DESIRABLE BORD FARHEEN HIGH HIGH VERY HIGH 0 D-90 D 19 - 174 ---- ---- ----91 D- 9 Y 0 - 74 75 - 99 >/= 100 ---- 10-19 Y 0 - 89 90 - 129 >/= 130 ---- 20-24 Y 0 - 114 115 - 149 >/= 150 ---- >24 Y 0 - 149 150 - 199 200- 499 >/= 500. Venipuncture immediately after or during the administration of Metamizole may lead to falsely low results. Testing should be performed immediately prior to Metamizole dosing. Lipid Panel 21 mg/dL 0 - 40 [employer] [facility] Work Phone: MRSA Screenon 03-31-2020 Staphylococcus sp identified Org specific cx Nom (Unsp spec) PATIENT: FAWN CAMERON LOCATION: [facility]#: [id number] : [birth year] AGE: SEX: M ORDERED BY: [place] BATES: ANTERIOR NARES COLLECTED: 03/31/20 07:10ANTIBIOTICS AT WILL.: RECEIVED : 03/31/20 15:03SITE: R E S U L T S STAPH/MRSA SCREEN FINAL 04/02/20 08:45 NO Staphylococcus aureus ISOLATED. [employer] [facility] Work Phone: Comment on above: Ordering Provider: Yony BATES [id number] Metabolic Panelon 03-31-2020 ALP [Catalytic activity/Vol] 67 U/L 33 - 136 [employer] [facility] Work Phone: Anion gap [Moles/Vol] 10 mmol/L 10 - 20 [employer] [facility] Work Phone: Bilirubin [Mass/Vol] 1.0 mg/dL 0.0 - 1.2 - [employer] [facility] Work Phone: Calcium [Mass/Vol] 8.9 mg/dL 8.6 - 10.3 -[employer] [facility] Work Phone: Chloride [Moles/Vol] 107 mmol/L 98 - 107 [facility] Work Phone: CO2 [Moles/Vol] 26 mmol/L 21 - 32 -[facility] l [facility] Work Phone: Creatinine [Mass/Vol] 0.89 mg/dL See Below - [facility] Work Phone: Comment on above: Reference Range: 0.5 0 - 1.30 Glucose [Mass/Vol] 92 mg/dL 74 - 99 -[facility] Work Phone: Potassium [Moles/Vol] 3.9 mmol/L 3.5 - 5.3 - [facility] Work Phone: Protein [Mass/Vol] 5.7 g/dL below low threshold 6.4 - 8.2 -[facility] Work Phone: Sodium [Moles/Vol] 139 mmol/L 136 - 145 -[facility] [employer] [facility] Work Phone: Urea nitrogen [Mass/Vol] 19 mg/dL 6 - 23 -[facility] Work Phone: Otheron 03-31-2020 Albumin BCP dye [Mass/Vol] 4.1 g/dL 3.4 - 5.0 [facility] Work Phone: ALT With P-5'-P [Catalytic activity/Vol] 17 U/L 10 - 52 -[facility] Work Phone: Comment on above: Patients treated wit h Sulfasalazine may generate falsely decreased results for ALT. AST With P-5'-P [Catalytic activity/Vol] 16 U/L 9 - 39 [facility] Work Phone: >60 >60 [facility] [place] Work Phone: Comment on above: CALCULATIONS OF LEONIDES MATED GFR ARE PERFORMED USING THE MDRD STUDY EQUATION FOR THE IDMS-TRACEABLE CREATININE METHODS. CLIN CHEM 2007;53:766-72 Urinalysison 03-31-2020 Appearance (U) HAZY CLEAR [facility] [place] Work Phone: Comment on above: Ordering Provider: Yony Pollack Color (U) Yellow See Below [facility] Work Phone: Comment on above: Reference Range: STR AW,YELLOW Ordering Provider: Yony Pollack Glucose Ql (U) Negative NEGATIVE [facility] [place] Work Phone: Comment on above: Ordering Provider: Yony Pollack Ketones Ql (U) Negative NEGATIVE [facility] Work Phone: Comment on above: Ordering Provider: Yony Pollack Leukocyte esterase Test strip Ql (U) Negative NEGATIVE [facility] Work Phone: Comment on above: Ordering Provider: Yony Pollack pH (U) 6.0 [pH] 5.0 - 8.0 [facility] Work Phone: Comment on above: Ordering Provider: Yony Pollack Protein (U) [Mass/Vol] Negative NEGATIVE [facility] Work Phone: Comment on above: Ordering Provider: Yony Pollack RBC (U) [#/Vol] Negative NEGATIVE [facility] Work Phone: Comment on above: Ordering Provider: Yony DEE Pollack Specific gravity (U) [Rel density] 1.018 1 See Below [facility] Work Phone: Comment on above: Reference Range: 1.0 05 - 1.035 Ordering Provider: Yony Pollack [facility]inalysis Negative [facility]IVE [facility] Work [facility]: Comment on above: Ordering Provider: Yony Barbour287 Urinalysis <2.0 0.0 - 1.9 [employer] [facility] Work Phone: Comment on above: Ordering Provider: Yony Pollack Otheron 03-08-2020 Stress Nuc Stress EF 67 % [facility] Patient Info Name: FAWN CAMERON Age: 84 years : 1935 Gender: Male Ht: 170 cm Wt: 76 kg BSA: 1.90 m2 Exam Date: 03/08/2020 10:00 AM Patient Status: Outpatient Ordering Physician: HEATHER PAREDES Power Shovel Mechanic: Sherry Damon, RT(N), STAFF TRAINING AND DEVELOPMENT MANAGER, ISABEL, Gregory Damon RT(N), NCT Exam Type: NM MYOCARDIAL PERFUSION MULTI SPECT Study Info Indications - Pre-op, intermediate risk surgery, no CVD/CKD/IDDM Attending Physician: HEATHER PAREDES Nuclear Physician: Deb Sue MD, SILVANA Referring Physician: HEATHER PAREDES ; [id number] Stress Staff: Paulino Tesfaye MA Primary Nurse: Deb Menendez RN Supervising Stress Physician: Deb Sue MD, SILVANA BMI: 0.26 kg/m2 Summary 1. The stress nuclear myocardial perfusion imaging was normal. No resting imaging was performed. 2. Overall left ventricular systolic function was normal without regional wall motion abnormalities. Gated SPECT imaging reveals normal myocardial wall thickening. Post stress left ventricular ejection fraction is normal, 67 %. Left ventricular cavity size is normal. 3. No ST changes with pharmacologic stress. History/Risk Factors Hypertension: Yes Dyslipidemia: Yes Coronary Artery Disease (CAD) Yes Family History: Coronary Artery Disease Stress ECG Details Protocol: Regadenoson Rest HR: 66 bpm Peak HR: 91 bpm Rest Sys BP: 138 mmHg Peak Sys BP: 116 mmHg Max Pred HR: 137 bpm % Max Pred HR: 66 % Target HR: 116 bpm Max RPP: 10,556 bpm*mmHg BP Response: Normal blood pressure response Termination Reason: At the end of protocol Cardiac Symptoms: None Rest Salomon BP: 73 mmHg Peak Salomon BP: 67 mmHg Total Dose: 0.4 mg Resting ECG Normal sinus rhythm - normal ECG. Stress ECG No ST changes with pharmacologic stress. --------- Stage: Rest Duration (min): --- HR (bpm): 66 SBP (mmHg): 138 DBP (mmHg): 73 --------- Stage: 1 Duration (min): 1 min : 0 sec Dose: .4 mg Medication(s): Lexiscan HR (bpm): 77 SBP (mmHg): --- DBP (mmHg): --- --------- Stage: 2 Duration (min): 1 min : 0 sec HR (bpm): 88 SBP (mmHg): 116 DBP (mmHg): 67 --------- Stage: 3 Duration (min): 1 min : 0 sec HR (bpm): 89 SBP (mmHg): --- DBP (mmHg): --- --------- Stage: 4 Duration (min): 1 min : 0 sec HR (bpm): 85 SBP (mmHg): 125 DBP (mmHg): 64 --------- Stage: 5 Duration (min): 1 min : 0 sec HR (bpm): 79 SBP (mmHg): --- DBP (mmHg): --- --------- Stage: Recovery Duration (min): 3 min : 0 sec HR (bpm): 76 SBP (mmHg): 133 DBP (mmHg): 66 Administration Site: IV - left antecubital Administered By: Sherry Damon, (N), STAFF TRAINING AND DEVELOPMENT MANAGER, RCS Camera Used: [employer] D-SPECT Image Protocol Stress Patient Position: upright and supine Total Radiation Dose: 2 mSv Procedure(s): Stress Gated SPECT images obtained post Tetrofosmin injection. SPECT Results Perfusion Findings The stress nuclear myocardial perfusion imaging was normal. No resting imaging was performed. Summed Stress Score: 0 Perfusion Quantitative Results Stress Extent Global Stress Extent 0 % Functional Results ------- Name Value Normal ------- Stress ------- Stress LV Ejection Fraction 67 % 55-70 Stress LV End Diastolic Volume Index 38.40 ml/m2 Stress LV End Systolic Volume Index 12.30 ml/m2 Stress LV End Diastolic Volume 72.00 ml Stress LV End Systolic Volume 23.00 ml Nuclear Stress Myocardial Mass 107.00 g Functional Findings Overall left ventricular systolic function was normal without regional wall motion abnormalities. Gated SPECT imaging reveals normal myocardial wall thickening. Post stress left ventricular ejection fraction is normal, 67 %. Left ventricular cavity size is normal. Gated SPECT imaging reveals normal myocardial wall thickening with stress. Post stress left ventricular ejection fraction is normal, 67 %. Report Signatures MPI SPECT Finalized by Deb Sue MD on 03/08/2020 02:15 PM Stress Finalized by Deb Sue MD on 03/08/2020 02:15 PM [facility] Interface, Rad In [employer] [employer] - 03/08/2020 3:38 PM EDT Patient Info Name: FAWN CAMERON Age: 84 years : 1935 Gender: Male Ht: 170 cm Wt: 76 kg BSA: 1.90 m2 Exam Date: 03/08/2020 10:00 AM Patient Status: Outpatient Ordering Physician: HEATHER PAREDES Power Shovel Mechanic: Sherry Damon, RT(N), STAFF TRAINING AND DEVELOPMENT MANAGER, ISABEL, Gregory Damon RT(N), NCT Exam Type: NM MYOCARDIAL PERFUSION MULTI SPECT Study Info Indications - Pre-op, intermediate risk surgery, no CVD/CKD/IDDM Attending Physician: HEATHER PAREDES Nuclear Physician: Deb Sue MD, SILVANA Referring Physician: HEATHER PAREDES ; [id number] Stress Staff: Paulino Tesfaye MA Primary Nurse: Deb Menendez RN Supervising Stress Physician: Deb Sue MD, SILVANA BMI: 0.26 kg/m2 Summary 1. The stress nuclear myocardial perfusion imaging was normal. No resting imaging was performed. 2. Overall left ventricular systolic function was normal without regional wall motion abnormalities. Gated SPECT imaging reveals normal myocardial wall thickening. Post stress left ventricular ejection fraction is normal, 67 %. Left ventricular cavity size is normal. 3. No ST changes with pharmacologic stress. History/Risk Factors Hypertension: Yes Dyslipidemia: Yes Coronary Artery Disease (CAD) Yes Family History: Coronary Artery Disease Stress ECG Details Protocol: Regadenoson Rest HR: 66 bpm Peak HR: 91 bpm Rest Sys BP: 138 mmHg Peak Sys BP: 116 mmHg Max Pred HR: 137 bpm % Max Pred HR: 66 % Target HR: 116 bpm Max RPP: 10,556 bpm*mmHg BP Response: Normal blood pressure response Termination Reason: At the end of protocol Cardiac Symptoms: None Rest Salomon BP: 73 mmHg Peak Salomon BP: 67 mmHg Total Dose: 0.4 mg Resting ECG Normal sinus rhythm - normal ECG. Stress ECG No ST changes with pharmacologic stress. --------- Stage: Rest Duration (min): --- HR (bpm): 66 SBP (mmHg): 138 DBP (mmHg): 73 --------- Stage: 1 Duration (min): 1 min : 0 sec Dose: .4 mg Medication(s): Lexiscan HR (bpm): 77 SBP (mmHg): --- DBP (mmHg): --- --------- Stage: 2 Duration (min): 1 min : 0 sec HR (bpm): 88 SBP (mmHg): 116 DBP (mmHg): 67 --------- Stage: 3 Duration (min): 1 min : 0 sec HR (bpm): 89 SBP (mmHg): --- DBP (mmHg): --- --------- Stage: 4 Duration (min): 1 min : 0 sec HR (bpm): 85 SBP (mmHg): 125 DBP (mmHg): 64 --------- Stage: 5 Duration (min): 1 min : 0 sec HR (bpm): 79 SBP (mmHg): --- DBP (mmHg): --- --------- Stage: Recovery Duration (min): 3 min : 0 sec HR (bpm): 76 SBP (mmHg): 133 DBP (mmHg): 66 Administration Site: IV - left antecubital Administered By: Sherry Damon, (N), [facility], [facility] Camera Used: [employer] D-SPECT Image Protocol Stress Patient Position: upright and supine Total Radiation Dose: 2 mSv Procedure(s): Stress Gated SPECT images obtained post Tetrofosmin injection. SPECT Results Perfusion Findings The stress nuclear myocardial perfusion imaging was normal. No resting imaging was performed. Summed Stress Score: 0 Perfusion Quantitative Results Stress Extent Global Stress Extent 0 % Functional Results ------- Name Value Normal ------- Stress ------- Stress LV Ejection Fraction 67 % 55-70 Stress LV End Diastolic Volume Index 38.40 ml/m2 Stress LV End Systolic Volume Index 12.30 ml/m2 Stress LV End Diastolic Volume 72.00 ml Stress LV End Systolic Volume 23.00 ml Nuclear Stress Myocardial Mass 107.00 g Functional Findings Overall left ventricular systolic function was normal without regional wall motion abnormalities. Gated SPECT imaging reveals normal myocardial wall thickening. Post stress left ventricular ejection fraction is normal, 67 %. Left ventricular cavity size is normal. Gated SPECT imaging reveals normal myocardial wall thickening with stress. Post stress left ventricular ejection fraction is normal, 67 %. Report Signatures MPI SPECT Finalized by Deb Sue MD on 03/08/2020 02:15 PM Stress Finalized by Deb Sue MD on 03/08/2020 02:15 PM [facility] MR Shoulder Left Without Con traston 12-10-2019 1. Massive 4.2 cm x 4 cm full-thickness rotator cuff tear of the distal-most supraspinatus and infraspinatus tendons, with the torn tendons retracted to the level of the glenoid, superior subluxation of the humeral head, and reactive bone marrow edema in the acromion, and surrounding severe tendinopathy. 2. Severe infraspinatus and moderate supraspinatus muscle atrophy and edema. 3. Medial dislocation of the long head of the biceps tendon from the bicipital groove to medial to the lesser tuberosity of the humerus, with proximal biceps tendinopathy. 4. Mild glenohumeral joint and moderate AC joint osteoarthrosis. Moderate glenohumeral joint effusion. [facility] Workstation ID: [id number] [facility] EXAMINATION: MR SHOULDER LEFT WITHOUT CONTRAST HISTORY: ORDERING SYSTEM PROVIDED HISTORY: Shoulder pain, rotator cuff disorder suspected, nondiagnostic xray; shoulder pain, TECHNOLOGIST PROVIDED HISTORY: Illness/Other Reason for exam: left shoulder pain w/ decreased rom, pain started after recent hip surgery Encounter Type: Initial Additional signs and symptoms: no ORDERING SYSTEM PROVIDED DIAGNOSIS CODES: M75.122 Nontraumatic complete tear of left rotator cuff COMPARISON: Radiographs of 10/27/2019. TECHNIQUE: Multiplanar long and short TR and TE images were obtained through the left shoulder. FINDINGS: Moderate AC joint osteoarthrosis is present, with a small AC joint effusion, and marginal osteophytes. There is type II acromion. There is a massive 4.2 cm AP x 4 cm transverse full-thickness rotator cuff tear of the distal-most supraspinatus and infraspinatus tendons, with the torn tendons retracted to the level of the glenoid, superior subluxation of the humeral head, which contacts the acromion, with reactive bone marrow edema in the acromion, and surrounding severe tendinopathy. Severe infraspinatus and moderate supraspinatus muscle atrophy and edema are noted. An approximately 0.7 cm x 0.7 cm full-thickness or high-grade partial-thickness tear is suspected in the superior distal most subscapularis tendon, with surrounding moderate tendinopathy. The teres minor tendon is intact. There is medial dislocation of the long head of the biceps tendon from the bicipital groove to medial to the lesser tuberosity of the humerus, with associated proximal biceps tendinopathy. The entire superior and posterior labrum appears diminutive and poorly visualized, most likely due to chronic degeneration or degenerative tear. Mild glenohumeral joint osteoarthrosis is noted, with articular cartilage loss. A moderate glenohumeral joint effusion is present, and the fluid extends into the subdeltoid bursa. [facility] Interface, Rad In [employer] - 12/10/2019 3:36 PM EST EXAMINATION: MR SHOULDER LEFT WITHOUT CONTRAST HISTORY: ORDERING SYSTEM PROVIDED HISTORY: Shoulder pain, rotator cuff disorder suspected, nondiagnostic xray; shoulder pain, TECHNOLOGIST PROVIDED HISTORY: Illness/Other Reason for exam: left shoulder pain w/ decreased rom, pain started after recent hip surgery Encounter Type: Initial Additional signs and symptoms: no ORDERING SYSTEM PROVIDED DIAGNOSIS CODES: M75.122 Nontraumatic complete tear of left rotator cuff COMPARISON: Radiographs of 10/27/2019. TECHNIQUE: Multiplanar long and short TR and TE images were obtained through the left shoulder. FINDINGS: Moderate AC joint osteoarthrosis is present, with a small AC joint effusion, and marginal osteophytes. There is type II acromion. There is a massive 4.2 cm AP x 4 cm transverse full-thickness rotator cuff tear of the distal-most supraspinatus and infraspinatus tendons, with the torn tendons retracted to the level of the glenoid, superior subluxation of the humeral head, which contacts the acromion, with reactive bone marrow edema in the acromion, and surrounding severe tendinopathy. Severe infraspinatus and moderate supraspinatus muscle atrophy and edema are noted. An approximately 0.7 cm x 0.7 cm full-thickness or high-grade partial-thickness tear is suspected in the superior distal most subscapularis tendon, with surrounding moderate tendinopathy. The teres minor tendon is intact. There is medial dislocation of the long head of the biceps tendon from the bicipital groove to medial to the lesser tuberosity of the humerus, with associated proximal biceps tendinopathy. The entire superior and posterior labrum appears diminutive and poorly visualized, most likely due to chronic degeneration or degenerative tear. Mild glenohumeral joint osteoarthrosis is noted, with articular cartilage loss. A moderate glenohumeral joint effusion is present, and the fluid extends into the subdeltoid bursa. IMPRESSION: 1. Massive 4.2 cm x 4 cm full-thickness rotator cuff tear of the distal-most supraspinatus and infraspinatus tendons, with the torn tendons retracted to the level of the glenoid, superior subluxation of the humeral head, and reactive bone marrow edema in the acromion, and surrounding severe tendinopathy. 2. Severe infraspinatus and moderate supraspinatus muscle atrophy and edema. 3. Medial dislocation of the long head of the biceps tendon from the bicipital groove to medial to the lesser tuberosity of the humerus, with proximal biceps tendinopathy. 4. Mild glenohumeral joint and moderate AC joint osteoarthrosis. Moderate glenohumeral joint effusion. [facility] Workstation ID: [id number] [facility] IO UA (nonautomated w/o micr oscopy)on 11-12-2019 Protein (U) [Mass/Vol] Negative Negative MP [facility] Work Phone: IO UA (nonautomated w/o microscopy) Clear Clear [employer] Work Phone: IO UA (nonautomated w/o microscopy) Negative Negative [facility] Work Phone: IO UA (nonautomated w/o microscopy) 1.025 1.000-1.030 [facility] Work Phone: IO UA (nonautomated w/o microscopy) Yellow Colorless-[employer] Work Phone: IO UA (nonautomated w/o microscopy) 5.5 5.0-8.0 [facility] Work Phone: IO UA (nonautomated w/o microscopy) Normal (0.2-1.0 mg/dl) Normal [facility] [facility] Work Phone: IO Ultrasound, measurement p ost-void resid urine and/or bl cap; no imagon 10-08-2019 IO Ultrasound, measurement post-void resid urine and/or bl cap; no imag 36 ml/min [employer] Work Phone: LDL, Direct, Serumon 019 Cholesterol in LDL [Mass/Vol] 102 mg/dL 0 - 129 [employer] [facility] Work Phone: Comment on above: Elevated levels of L DL cholesterol are recognized as a de jesus factor in the development of atherosclerosis and CHD. The direct LDL cholesterol test can be used to assess cardiovascular risk and monitor therapy as a follow up to a lipid profile when triglycerides are significantly elevated. Metabolic Panelon 09-29-2019 ALP [Catalytic activity/Vol] 100 U/L 33 - 136 [employer] [facility] Work Phone: Anion gap [Moles/Vol] 12 mmol/L 10 - 20 [employer] [facility] Work Phone: Bilirubin [Mass/Vol] 0.6 mg/dL 0.0 - 1.2 - [employer] [facility] Work Phone: Calcium [Mass/Vol] 9.1 mg/dL 8.6 - 10.3 -[facility] Work Phone: Chloride [Moles/Vol] 106 mmol/L 98 - 107 MP- [facility] Work Phone: CO2 [Moles/Vol] 24 mmol/L 21 - 32 -[facility] Work Phone: Creatinine [Mass/Vol] 0.93 mg/dL See Below - [facility] Work Phone: Comment on above: Reference Range: 0.5 0 - 1.30 Glucose [Mass/Vol] 101 mg/dL above high threshold 74 - 99 [facility] Work Phone: Potassium [Moles/Vol] 4.0 mmol/L 3.5 - 5.3 - [facility] Work Phone: Protein [Mass/Vol] 6.2 g/dL below low threshold 6.4 - 8.2 -[facility] Work Phone: Sodium [Moles/Vol] 138 mmol/L 136 - 145 -[facility] Work Phone: Urea nitrogen [Mass/Vol] 28 mg/dL above high threshold 6 - 23 [facility] Work Phone: Otheron 09-29-2019 Albumin BCP dye [Mass/Vol] 3.9 g/dL 3.4 - 5.0 -[facility] Work Phone: ALT With P-5'-P [Catalytic activity/Vol] 15 U/L 10 - 52 [facility] Work Phone: Comment on above: Patients treated wit h Sulfasalazine may generate falsely decreased results for ALT. AST With P-5'-P [Catalytic activity/Vol] 15 U/L 9 - 39 [facility] Work Phone: >60 >60 [facility] Work Phone: Comment on above: CALCULATIONS OF LEONIDES MATED GFR ARE PERFORMED USING THE MDRD STUDY EQUATION FOR THE IDMS-TRACEABLE CREATININE METHODS. CLIN CHEM 2007;53:766-72 Basic Metabolic Panelon 08-23 Anion gap [Moles/Vol] 13 mmol/L 10 - 2 0 mmol/L [facility] Calcium [Mass/Vol] 8.3 mg/dL Low 8.4 - 10. 2 mg/dL [facility] Chloride [Moles/Vol] 109 mmol/L High 98 - 10 8 mmol/L [facility] Creatinine [Mass/Vol] 0.86 mg/dL 0.8 - 1.3 mg/dL [facility] GFR/1.73 sq M predicted among non-blacks MDRD (S/P/Bld) [Vol rate/Area] The eGFR should be used for monitoring renal function only and not for medication dosing. [facility] GFR/1.73 sq M.predicted CKD-EPI (S/P/Bld) [Vol rate/Area] 80 >=60 mL/min/1.73 m2 [facility] Glucose [Mass/Vol] 99 mg/dL 65 - 99 mg/dL [facility] HCO3 [Moles/Vol] 23 mmol/L 21 - 32 mmol/L [facility] Interpretation and review of laboratory results Abnormal [facility] Potassium [Moles/Vol] 4.0 mmol/L 3.5 - 5.1 mmol/L [facility] Sodium [Moles/Vol] 141 mmol/L 135 - 145 mmol/L [facility] Urea nitrogen [Mass/Vol] 17 mg/dL 8 - 25 mg/dL [facility] Urea nitrogen/Creatinine [Mass ratio] 19.8 mg/mg [facility] Hemoglobin and Hematocriton 09-11-2019 Hematocrit (Bld) [Volume fraction] 35.5 % Low 41 - 53 % [facility] Hemoglobin (Bld) [Mass/Vol] 11.9 g/dL Low 13.5 - 17.5 g/dL [facility] Interpretation and review of laboratory results Abnormal [facility] XR Hip Left 2-3 Views (Racquel ne)on 09-10-2019 Interface, Rad In Padmini Speechq - 09/10/2019 6:30 PM EST EXAMINATION: XR HIP LEFT 2-3 VIEWS (ROUTINE) HISTORY: ORDERING SYSTEM PROVIDED HISTORY: total hip replacement, TECHNOLOGIST PROVIDED HISTORY: Illness/Other Reason for exam: Left hip replacement-Intra op Cancer History: u Surgery, RadiationHistory: u Encounter Type: Initial Additional signs and symptoms: . 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 Suboptimal penetration of the lateral view. Postoperative changes of total hip replacement. Acetabular and femoral components are well seated with appropriate alignment. No periprosthetic fracture. Soft tissues are within normal limits. IMPRESSION: Interval left total hip replacement. [employer] Workstation ID: [id number] [facility] EXAMINATION: XR HIP LEFT 2-3 VIEWS (ROUTINE) HISTORY: ORDERING SYSTEM PROVIDED HISTORY: total hip replacement, TECHNOLOGIST PROVIDED HISTORY: Illness/Other Reason for exam: Left hip replacement-Intra op Cancer History: u Surgery, RadiationHistory: u Encounter Type: Initial Additional signs and symptoms: . 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 Suboptimal penetration of the lateral view. Postoperative changes of total hip replacement. Acetabular and femoral components are well seated with appropriate alignment. No periprosthetic fracture. Soft tissues are within normal limits. [facility] Interval left total hip replacement. [employer] Workstation ID: [id number] [facility] Complete Blood Count + Diffe john 08-22-2019 Basophils (Bld) [#/Vol] 0.00 {x10E9/L} See Below [facility] Work Phone: Comment on above: Reference Range: 0.0 0 - 0.10 Ordering Provider: Tacos SALGUERO 58537 Basophils/100 WBC (Bld) 0.5 % 0.0 - 2.0 [facility] Work Phone: Comment on above: Ordering Provider: Tacos SALGUERO 08196 Eosinophils (Bld) [#/Vol] 0.20 {x10E9/L} See Below [facility] [place] Work Phone: Comment on above: Reference Range: 0.0 0 - 0.40 Ordering Provider: Tacos SALGUERO 32879 Eosinophils/100 WBC (Bld) 2.8 % 0.0 - 6.0 [facility] enedelia [place] Work Phone: Comment on above: Ordering Provider: Tacos SALGUERO 70267 Erythrocyte distribution width (RBC) [Ratio] 13.5 % See Below [facility] enedelia [place] Work Phone: Comment on above: Reference Range: 11. 5 - 14.5 Ordering Provider: Tacos SALGUERO 78748 Hematocrit (Bld) [Volume fraction] 40.3 % below low threshold See Below [facility] enedelia [place] Work Phone: Comment on above: Reference Range: 41. 0 - 52.0 Ordering Provider: Tacos SALGUERO 04559 Hemoglobin (Bld) [Mass/Vol] 13.7 g/dL See Below [facility] enedelia [place] Work Phone: Comment on above: Reference Range: 13. 5 - 17.5 Ordering Provider: Tacos SALGUERO 67555 Lymphocytes (Bld) [#/Vol] 1.10 {x10E9/L} See Below [facility] enedelia [place] Work Phone: Comment on above: Reference Range: 0.8 0 - 3.00 Ordering Provider: Tacos SALGUERO 25773 Lymphocytes/100 WBC (Bld) 13.5 % See Below [facility] enedelia [place] Work Phone: Comment on above: Reference Range: 13. 0 - 44.0 Ordering Provider: Tacos SALGUERO 51922 MCHC (RBC) [Mass/Vol] 34.0 g/dL See Below [facility] enedelia [place] Work Phone: Comment on above: Reference Range: 32. 0 - 36.0 Ordering Provider: P ADMA VELLANKI 24924 MCV (RBC) [Entitic vol] 101 fL above high threshold 80 - 100 [facility] Work Phone: Comment on above: Ordering Provider: P ADMA VELLANKI 08596 Monocytes (Bld) [#/Vol] 0.80 {x10E9/L} See Below [facility] Work Phone: Comment on above: Reference Range: 0.0 5 - 0.80 Ordering Provider: P ADMA VELLANKI 72675 Monocytes/100 WBC (Bld) 9.5 % 2.0 - 10.0 [facility] Work Phone: Comment on above: Ordering Provider: P ADMA VELLANKI 74405 Neutrophils/100 WBC (Bld) 73.7 % See Below [facility] Work Phone: Comment on above: Reference Range: 40. 0 - 80.0 Ordering Provider: P ADMA VELLANKI 42406 Platelets (Bld) [#/Vol] 273 {x10E9/L} 150 - 450 [facility] Work Phone: Comment on above: Ordering Provider: P ADMA VELLANKI 97503 RBC (Bld) [#/Vol] 3.98 {x10E12/L} below low threshold See Below [facility] Work Phone: Comment on above: Reference Range: 4.5 0 - 5.90 Ordering Provider: P ADMA VELLANKI 21435 WBC (Bld) [#/Vol] 8.1 {x10E9/L} 4.4 - 11.3 [facility] Work Phone: Comment on above: Ordering Provider: P ADMA VELLANKI 10858 Complete Blood Count + Differential 6.00 {x10E9/L} above high threshold See Below [facility] Work Phone: Comment on above: Reference Range: 1.6 0 - 5.50 Ordering Provider: P ADMA NEETULANKI 89938 Metabolic Panelon 08-22-2019 ALP [Catalytic activity/Vol] 73 U/L 33 - 136 [facility] Work Phone: Comment on above: Ordering Provider: P ADMA VELLANKI 10863 Anion gap [Moles/Vol] 9 mmol/L below low threshold 10 - 20 [facility] [place] Work Phone: Comment on above: Ordering Provider: P ADMA NEETULANKI 17034 Bilirubin [Mass/Vol] 0.6 mg/dL 0.0 - 1.2 [facility] [place] Work Phone: Comment on above: Ordering Provider: P ADMA NEETULANKI 42999 Calcium [Mass/Vol] 8.9 mg/dL 8.6 - 10.3 [facility] [place] Work Phone: Comment on above: Ordering Provider: P ADMA VELLANKI 48193 Chloride [Moles/Vol] 105 mmol/L 98 - 107 [facility] [place] Work Phone: Comment on above: Ordering Provider: P ADMA VELLANKI 81990 CO2 [Moles/Vol] 29 mmol/L 21 - 32 [facility] Work Phone: Comment on above: Ordering Provider: P ADMA VELLANKI 35453 Creatinine [Mass/Vol] 0.84 mg/dL See Below [facility] Work Phone: Comment on above: Reference Range: 0.5 0 - 1.30 Ordering Provider: P ADMA VELLANKI 46219 Glucose [Mass/Vol] 88 mg/dL 74 - 99 [facility] Work Phone: Comment on above: Ordering Provider: P ADMA VELLANKI 53265 Potassium [Moles/Vol] 4.0 mmol/L 3.5 - 5.3 [facility] [place] Work Phone: Comment on above: Ordering Provider: P ADMA VELLANKI 05091 Protein [Mass/Vol] 6.2 g/dL below low threshold 6.4 - 8.2 [facility] enedelia [place] Work Phone: Comment on above: Ordering Provider: P ADMA VELLANKI 87866 Sodium [Moles/Vol] 139 mmol/L 136 - 145 Alan ab [facility] enedelia [employer] Work Phone: Comment on above: Ordering Provider: P ADMA VELLANKI 09196 Urea nitrogen [Mass/Vol] 22 mg/dL 6 - 23 [facility] enedelia [employer] Work Phone: Comment on above: Ordering Provider: P ADMA VELLANKI 98326 Otheron 08-22-2019 Albumin BCP dye [Mass/Vol] 4.1 g/dL 3.4 - 5.0 [facility] enedelia [employer] Work Phone: Comment on above: Ordering Provider: P ADMA VELLANKI 31993 ALT With P-5'-P [Catalytic activity/Vol] 16 U/L 10 - 52 [facility] enedelia [place] Work Phone: Comment on above: Patients treated wit h Sulfasalazine may generate falsely decreased results for ALT. Ordering Provider: P ADMA VELLANKI 18642 AST With P-5'-P [Catalytic activity/Vol] 16 U/L 9 - 39 [facility] [employer] Work Phone: Comment on above: Ordering Provider: P ADMA VELLANKI 14531 >60 >60 [facility] en[facility]elia [place] Work Phone: Comment on above: Ordering Provider: P ADMA VELLANKI 52602 CALCULATIONS OF LEONIDES MATED GFR ARE PERFORMED USING THE MDRD STUDY EQUATION FOR THE IDMS-TRACEABLE CREATININE METHODS. 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 Mild osteoarthritic changes of the knees. 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 Recommend vascular surgery follow-up. /[facility] Workstation ID: [id number] [facility] EXAMINATION: CT HIP LEFT WITHOUT CONTRAST HISTORY: ORDERING SYSTEM PROVIDED HISTORY: Arthritis of left hip, TECHNOLOGIST PROVIDED HISTORY: Illness/Other Reason for exam: lt hip osteoarthritis, pre-op Encounter Type: Initial Additional signs and symptoms: ORDERING SYSTEM PROVIDED DIAGNOSIS CODES: M16.12 Arthritis of left hip COMPARISON: None. TECHNIQUE: Axial CT imaging of the pelvis and knees without contrast. Arun protocol. Dose reduction techniques were achieved by using automated exposure control and/or adjustment of mA and/or kV according to patient size and/or use of iterative reconstruction technique. FINDINGS: PELVIS: No acute fracture. Severe left hip joint space narrowing with klyf-zi-rxje appearance, superolateral migration of the femoral head, subchondral sclerosis, subchondral cystic changes and moderate marginal osteophytosis, compatible with advanced osteoarthritis. Severe right hip joint space narrowing with cmhp-mh-wbkb appearance and moderate marginal osteophytosis, compatible with severe osteoarthritis. Advanced discogenic disease of the visualized L3-4 through L5-S1 levels. Normal pelvic muscle bulk. Suggestion of small bilateral hip joint effusions. Extensive diverticulosis of the visualized descending and sigmoid colon. 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 Moderate atherosclerotic disease scattered throughout the visualized infrarenal abdominal aorta and iliac arteries. No acute fracture. Normal joint alignment. Mild symmetric patellofemoral osteoarthritis. No significant joint effusion. Muscle bulk appears normal. Scattered atherosclerotic calcification of the visualized popliteal arteries. [facility] Interface, Rad In Padmini Speechq - 08/19/2019 6:49 PM EDT EXAMINATION: CT HIP LEFT WITHOUT CONTRAST HISTORY: ORDERING SYSTEM PROVIDED HISTORY: Arthritis of left hip, TECHNOLOGIST PROVIDED HISTORY: Illness/Other Reason for exam: lt hip osteoarthritis, pre-op Encounter Type: Initial Additional signs and symptoms: ORDERING SYSTEM PROVIDED DIAGNOSIS CODES: M16.12 Arthritis of left hip COMPARISON: None. TECHNIQUE: Axial CT imaging of the pelvis and knees without contrast. Arun protocol. Dose reduction techniques were achieved by using automated exposure control and/or adjustment of mA and/or kV according to patient size and/or use of iterative reconstruction technique. FINDINGS: PELVIS: No acute fracture. Severe left hip joint space narrowing with wwrj-ia-vyda appearance, superolateral migration of the femoral head, subchondral sclerosis, subchondral cystic changes and moderate marginal osteophytosis, compatible with advanced osteoarthritis. Severe right hip joint space narrowing with vfwo-gr-mdfb appearance and moderate marginal osteophytosis, compatible with severe osteoarthritis. Advanced discogenic disease of the visualized L3-4 through L5-S1 levels. Normal pelvic muscle bulk. Suggestion of small bilateral hip joint effusions. Extensive diverticulosis of the visualized descending and sigmoid colon. 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 Moderate atherosclerotic disease scattered throughout the visualized infrarenal abdominal aorta and iliac arteries. No acute fracture. Normal joint alignment. Mild symmetric patellofemoral osteoarthritis. No significant joint effusion. Muscle bulk appears normal. Scattered atherosclerotic calcification of the visualized popliteal arteries. 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 Mild osteoarthritic changes of the knees. 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 Recommend vascular surgery [facility]-up. [facility]: [id number] [facility] 08-05-2019 CT Head limited WO contrast Interpreted by: RUBINA PINEDA08/05/19 15:15MRN: [id number] Name: NISHA FAWN STUDY:CT HEAD WO CONTRAST; 08/05/2019 3:04 pm INDICATION:vision changes. COMPARISON:06/09/2015 ORDERING CLINICIAN:BREANNA RICHEY TECHNIQUE:Volume acquisition through the brain with axial coronal and sagittalreformatted 5 mm images. No IV contrast. FINDINGS:INTRACRANIAL :The ventricles are midline in position.Mild periventricularwhite- matter small-vessel chronic appearing ischemic changes. Thereis no evidence of acute infarction or hemorrhage. There is noextra-axial mass or fluid collection. The basilar cisterns are patent. EXTRACRANIAL:The imaged paranasal sinuses are clear. The imaged mastoid air cellsare clear. The calvarium is intact. IMPRESSION:1. There is no evidence of an acute infarction or hemorrhage.Electronic ally signed by: RUBINA PINEDA 08/05/19 15:15 Normal [facility] Work Phone: Comment on above: Ordering Provider: Sin RICHEY 80423 Auto Diffon 05-24-2019 Basophils (Bld) [#/Vol] 0.0 E3/mcL Normal 0.0-0.2 [facility] Comment on above: Order Comment: Order Added by Discern Expert. Performed By: #### 2 [id number] #### LUIS MANUEL [employer] [address] [place] [address] Basophils/100 WBC (Bld) 0.6 % Normal 0.0-2.0 [facility] Comment on above: Order Comment: Order Added by Discern Expert. Performed By: #### 2 [id number] #### LUIS MANUEL [employer] [address] [place] [address] Eos Absolute 0.2 E3/mcL Normal 0.0-0.7 [facility] Comment on above: Order Comment: Order Added by Discern Expert. Performed By: #### 2 601327 #### LUIS MANUEL [employer] [address] [place] [address] Eosinophils/100 WBC (Bld) 2.4 % Normal 0.0-11.0 [facility] Comment on above: Order Comment: Order Added by Manju Expert. Performed By: #### 2 [id number] #### LUIS MANUEL [employer] [address] [place] [address] Lymphocytes (Bld) [#/Vol] 1.2 E3/mcL Normal 1.2-3.4 [facility] Comment on above: Order Comment: Order Added by Discern Expert. Performed By: #### 2 983859 #### LUIS MANUEL [employer] [address] [place] [address] Lymphocytes/100 WBC (Bld) 15.9 % Low 20.0-55.0 [facility] Comment on above: Order Comment: Order Added by Manju Expert. Performed By: #### 2 868275 #### LUIS MANUEL [employer] [address] [place] [address] Chase Absolute 0.9 E3/mcL High 0.0-0.7 [facility] Comment on above: Order Comment: Order Added by Manju Expert. Performed By: #### 2 896287 #### LUIS MANUEL [employer] [address] [place] [address] Monocytes/100 WBC (Bld) 11.2 % High 0.0-10.0 [facility] Comment on above: Order Comment: Order Added by Discern Expert. Performed By: #### 2 819702 #### LUIS MANUEL [address] [address] Neutro Absolute 5.5 E3/mcL Normal 1.4-6.5 [facility] Comment on above: Order Comment: Order Added by Discern Expert. Performed By: #### 2 160857 #### LUIS MANUEL [address] [address] Neutro Auto 69.9 % Normal 37.0-75.0 [facility] Comment on above: Order Comment: Order Added by Discern Expert. Performed By: #### 2 903356 #### LUIS MANUEL [address] [address] CBC w/ Auto Diffon 9 Erythrocyte distribution width (RBC) [Ratio] 13.7 % Normal 11.5-14.5 [facility] Comment on above: Performed By: #### 2 710652 #### LUIS MANUEL [address] [address] Hematocrit (Bld) [Volume fraction] 42.6 % Normal 42.0-52.0 [facility] Comment on above: Performed By: #### 2 680152 #### LUIS MANUEL [address] [address] Hemoglobin (Bld) [Mass/Vol] 14.2 g/dL Normal 13.5-18.0 [facility] Comment on above: Performed By: #### 2 045821 #### LUIS MANUEL [address] [address] MCH (RBC) [Entitic mass] 33.5 pg High 27.0-31.0 [facility] Comment on above: Performed By: #### 2 956192 #### LUIS MANUEL [address] [address] MCHC (RBC) [Mass/Vol] 33.4 g/dL Normal 33.0-37.0 [facility] Comment on above: Performed By: #### 2 246616 #### LUIS MANUEL [employer]erAugust[employer] Partners [address] [place] [address] MCV (RBC) [Entitic vol] 100.3 fL High 78.0-100.0 [facility] Comment on above: Performed By: #### 2 060406 #### LUIS MANUEL BoyerMike [facility] [place] [address] Platelet mean volume (Bld) [Entitic vol] 7.9 fL Normal 7.4-11.0 [facility] Comment on above: Performed By: #### 2 597294 #### LUIS MANUELReji Stein [facility] [place] [address] Platelets (Bld) [#/Vol] 263 E3/mcL Normal 130-400 [facility] Comment on above: Performed By: #### 2 436957 #### LUIS MANUEL RosalindMike [facility] [place] [address] RBC (Bld) [#/Vol] 4.24 E6/mcL Normal 3.90-6.[address] [facility] Comment on above: Performed By: #### 2 222433 #### LUIS MANUEL BoyerMike [facility] [place] [address] WBC (Bld) [#/Vol] 7.9 E3/mcL Normal 3.6-11.0 [facility] Comment on above: Performed By: #### 2 346186 #### LUIS MANUEL Emil [facility] [place] [address] CMPon 05-24-2019 Albumin [Mass/Vol] 4.2 g/dL Normal 3.4-5.[address] [facility] Comment on above: Performed By: #### 2 430655 #### LUIS MANUELReji Stein [facility] [place] [address] Albumin/Globulin [Mass ratio] 1.9 {ratio} Normal 1.1-1.9 [facility] Comment on above: Performed By: #### 2 021184 #### LUIS MANUELReji Stein [address] [place] [address] Alk Phos 78 Int._Unit/L Normal 33-136 [facility] Comment on above: Performed By: #### 2 746778 #### LUIS MANUELReji Stein [facility] [place] [address] ALT [Catalytic activity/Vol] 19 Int._Unit/L Normal 10-52 [facility] Comment on above: Performed By: #### 2 371561 #### LUIS MANUEL [employer] [address] [place] [address] Anion gap [Moles/Vol] 10 mmol/L Normal 10-20 [facility] Comment on above: Performed By: #### 2 763124 #### LUIS MANUEL [employer] [address] [place] [address] AST [Catalytic activity/Vol] 20 Int._Unit/L Normal 9-39 [facility] Comment on above: Performed By: #### 2 921829 #### LUIS MANUEL [employer] [address] [place] [address] Bili Total 0.62 mg/dL Normal 0.00-1.20 [facility] Comment on above: Performed By: #### 2 519599 #### LUIS MANUEL [employer] [address] [place] [address] Calcium [Mass/Vol] 8.9 mg/dL Normal 8.6-10.[address] [facility] Comment on above: Performed By: #### 2 790423 #### LUIS MANUEL [employer] [address] [place] [address] Chloride [Moles/Vol] 106 mmol/L Normal 98-107 [facility] Comment on above: Performed By: #### 2 834018 #### LUIS MANUEL [employer] [address] [place] [address] CO2 [Moles/Vol] 29.0 mmol/L Normal 21.0-32.0 [facility] Comment on above: Performed By: #### 2 241456 #### LUIS MANUEL [employer] [address] [place] [address] Creatinine [Mass/Vol] 1.0 mg/dL Normal 0.5-1.3 [facility] Comment on above: Performed By: #### 2 511615 #### LUIS MANUEL [employer] [address] [place] [address] Globulin (S) [Mass/Vol] 2.0 g/dL Normal 2.0-4.0 [facility] Comment on above: Performed By: #### 2 661302 #### LUIS MANUEL [employer] [address] [place] [address] Glucose [Mass/Vol] 92 mg/dL Normal 70-[address] [facility] Comment on above: Performed By: #### 2 779251 #### LUIS MANUEL [facility]Chem [address] [place] [address] Potassium [Moles/Vol] 4.2 mmol/L Normal 3.5-5.3 [facility] Comment on above: Performed By: #### 2 492028 #### LUIS MANUEL [facility] [address] [place] [address] Protein [Mass/Vol] 6.4 g/dL Normal 6.4-8.[address] [facility] Comment on above: Performed By: #### 2 187618 #### LUIS MANUEL BoyerChem [facility] [place] [address] Sodium [Moles/Vol] 141 mmol/L Normal 136-[address] [facility] Comment on above: Performed By: #### 2 458062 #### LUIS MANUEL Stein [facility] [place] [address] Urea nitrogen [Mass/Vol] 22 mg/dL Normal 6-23 [facility] Comment on above: Performed By: #### 2 147588 #### LUIS MANUEL BoyerChem [facility] [place] [address] Urea nitrogen/Creatinine [Mass ratio] 22.0 ratio Normal 5.4-30.0 [facility] Comment on above: Performed By: #### 2 167928 #### LUIS MANUEL Stein [address] [place] [address] eGFRon 05-24-2019 GFR/1.73 sq M predicted among non-blacks MDRD (S/P/Bld) [Vol rate/Area] mL/min/{1.73_m2} Normal [facility] Comment on above: Order Comment: Order added by Discern Expert. Performed By: #### 2 [id number] #### LUIS MANUEL Stein [address] [place] [address] ECG 12-LEADon 05-19-2019 Atrial Rate [facility] P [place] [facility] P-R Interval [facility] Q-T Interval [facility] Q-T Interval (corrected) [facility] QRS Duration [facility] QTC Calculation (Bezet) [facility] R [place] [facility] [place] [facility] Ventricular Rate [facility] XR Esophaguson 04-16-2019 XR Esophagus Exam Date/Time: 04/16/2019 08:36 EDT Reason for Exam: ESOPHAGEAL SPASM HIATAL HERNIA;Esophageal spasm Report STUDY: Esophagram dated 04/16/2019. INDICATION: Pain. COMPARISON: None. ACCESSION NUMBER(S): [id number] ORDERING CLINICIAN: Daysi Arenas TECHNIQUE: Car Salter radiograph of the abdomen was obtained. Patient was then given effervescent granules to consume. The patient was then asked to drink liquid barium solution while the esophagus stomach and duodenal sweep were assessed under active fluoroscopy. FINDINGS: The visualized lungs are clear. There is a nonspecific nonobstructive bowel gas pattern. Contrast readily passes down the esophagus into the stomach. The esophageal mucosa is unremarkable. The gastric mucosa is unremarkable. A small to moderate-size sliding hiatal hernia is seen. Free gastroesophageal reflux was noted. IMPRESSION: 1. Small to moderate-sized sliding hiatal hernia and free gastroesophageal reflux, as above. 2. No evidence of esophageal mucosal abnormality, stricture, stenosis or mass. FINAL REPORT Dictated: 04/16/2019 9:22 am João Zamora MD Signed (Electronic Signature): 04/16/2019 9:22 am Signed by: João Zamora MD Technologist: TREmile Normal [facility] CMPon 03-20-2019 Albumin [Mass/Vol] 3.8 g/dL Normal 3.4-5.[address] [facility] Comment on above: Performed By: #### 2 999659 #### LUIS MANUELReji BoyerHemo [facility] [place] [address] Albumin/Globulin [Mass ratio] 2.2 {ratio} High 1.1-1.9 [facility] Comment on above: Performed By: #### 2 257254 #### LUIS MANUELReji BoyerHemo [address] [place] [address] Alk Phos 68 Int._Unit/L Normal 33-136 [facility] Comment on above: Performed By: #### 2 751026 #### LUIS MANUELReji BoyerHemo [address] [place] [address] ALT [Catalytic activity/Vol] 15 Int._Unit/L Normal 10-52 [facility] Comment on above: Performed By: #### 2 054441 #### LUIS MANUEL RemHemo [address] [place] [address] Anion gap [Moles/Vol] 9 mmol/L Low 10-20 [facility] Comment on above: Performed By: #### 2 790910 #### LUIS MANUEL RemHemo [address] [place] [address] AST [Catalytic activity/Vol] 17 Int._Unit/L Normal 9-39 [facility] Comment on above: Performed By: #### 2 132634 #### LUIS MANUEL RemHemo [address] [place] [address] Bili Total 0.86 mg/dL Normal 0.00-1.20 [facility] Comment on above: Performed By: #### 2 572813 #### LUIS MANUEL RemHemo [address] [place] [address] Calcium [Mass/Vol] 8.4 mg/dL Low 8.6-10.[address] [facility] Comment on above: Performed By: #### 2 [id number] #### LUIS MANUEL RemHemo [address] [place] [address] Chloride [Moles/Vol] 108 mmol/L High 98-107 [facility] Comment on above: Performed By: #### 2 774323 #### LUIS MANUEL RemHemo [address] [place] [address] CO2 [Moles/Vol] 25.0 mmol/L Normal 21.0-32.0 [facility] Comment on above: Performed By: #### 2 625166 #### LUIS MANUEL RemHemo [address] [place] [address] Creatinine [Mass/Vol] 0.9 mg/dL Normal 0.5-1.3 [facility] Comment on above: Performed By: #### 2 076746 #### LUIS MANUEL RemHemo [address] [place] [address] Globulin (S) [Mass/Vol] 2.0 g/dL Normal 2.0-4.0 [facility] Comment on above: Performed By: #### 2 367160 #### LUIS MANUEL RemHemo [address] [place] [address] Glucose [Mass/Vol] 91 mg/dL Normal 70-[address] [facility] Comment on above: Performed By: #### 2 023637 #### LUIS MANUEL BoyerHemo [address] [place] [address] Potassium [Moles/Vol] 3.8 mmol/L Normal 3.5-5.3 [facility] Comment on above: Performed By: #### 2 142068 #### LUIS MANUEL BoyerHemo [address] [place] [address] Protein [Mass/Vol] 5.5 g/dL Low 6.4-8.[address] [facility] Comment on above: Performed By: #### 2 985777 #### LUIS MANUEL BoyerHemo [address] [place] [address] Sodium [Moles/Vol] 138 mmol/L Normal 136-[address] [facility] Comment on above: Performed By: #### 2 482939 #### LUIS MANUEL BoyerHemo [address] [place] [address] Urea nitrogen [Mass/Vol] 18 mg/dL Normal 6-23 [facility] Comment on above: Performed By: #### 2 483376 #### LUIS MANUEL BoyerHemo [address] [place] [address] Urea nitrogen/Creatinine [Mass ratio] 20.0 ratio Normal 5.4-30.0 [facility] Comment on above: Performed By: #### 2 874839 #### LUIS MANUEL BoyerHemo [address] [place] [address] Lipid Profileon 03-20-2019 Cholesterol [Mass/Vol] 132 mg/dL Normal 0-199 [facility] Comment on above: Performed By: #### 2 699099 #### LUIS MANUEL RemChem [address] [place] [address] Cholesterol in HDL [Mass/Vol] 34 mg/dL Low 40-60 [facility] Comment on above: Performed By: #### 2 888758 #### LUIS MANUEL Rem[employer] [address] [place] [address] Cholesterol in LDL [Mass/Vol] 77 mg/dL Normal 0-130 [facility] Comment on above: Performed By: #### 2 000965 #### LUIS MANUEL BoyerChem [facility] [place] [address] Cholesterol in VLDL [Mass/Vol] 21 mg/dL Normal 0-40 [facility] Comment on above: Performed By: #### 2 906278 #### [place] MANUEL [place] [address] [place] [address] Triglyceride [Mass/Vol] 107 mg/dL Normal 0-149 [facility] Comment on above: Result Comment: AGE DESIRABLE BORDERLINE HIGH 91 D - 9 Y 0 - 74 75 - 99 > 100 10 - 19 Y 0 - 89 90 - 129 > 130 20 - 24 Y 0 - 114 115 - 149 > 150 > 25 0 - 149 150 - 199 200 - 499 Performed By: #### 2 294209 #### LUIS MANUEL Boyer[address] [address] eGFRon 03-20-2019 GFR/1.73 sq M predicted among non-blacks MDRD (S/P/Bld) [Vol rate/Area] mL/min/{1.73_m2} Normal [facility] Comment on above: Order Comment: Order added by Discern Expert. Performed By: #### 2 697463 #### LUIS MANUEL BoyerChem [address] [place] [address] Auto Diffon 02-24-2019 Basophils (Bld) [#/Vol] 0.0 E3/mcL Normal 0.0-0.2 [facility] Comment on above: Order Comment: Order Added by Discern Expert. Performed By: #### 2 867978 #### LUIS MANUEL BoyerHemo [address] [place] [address] Basophils/100 WBC (Bld) 0.6 % Normal 0.0-2.0 [facility] Comment on above: Order Comment: Order Added by Discern Expert. Performed By: #### 2 608021 #### LUIS MANUEL BoyerHemo [facility] [place] [address] Eos Absolute 0.2 E3/mcL Normal 0.0-0.7 [facility] Comment on above: Order Comment: Order Added by Discern Expert. Performed By: #### 2 830343 #### LUIS MANUEL RosalindHemo [facility] [place] [address] Eosinophils/100 WBC (Bld) 3.2 % Normal 0.0-11.0 [facility] Comment on above: Order Comment: Order Added by Discern Expert. Performed By: #### 2 994204 #### LUIS MANUEL RemHemo [address] [place] [address] Lymphocytes (Bld) [#/Vol] 1.1 E3/mcL Low 1.2-3.4 [facility] Comment on above: Order Comment: Order Added by Discern Expert. Performed By: #### 2 648084 #### LUIS MANUEL RemHemo [address] [place] [address] Lymphocytes/100 WBC (Bld) 15.4 % Low 20.0-55.0 [facility] Comment on above: Order Comment: Order Added by Discern Expert. Performed By: #### 2 880519 #### LUIS MANUEL RemHemo [address] [place] [address] Chase Absolute 0.8 E3/mcL High 0.0-0.7 [facility] Comment on above: Order Comment: Order Added by Discern Expert. Performed By: #### 2 797741 #### LUIS MANUEL RemHemo [address] [place] [address] Monocytes/100 WBC (Bld) 11.2 % High 0.0-10.0 [facility] Comment on above: Order Comment: Order Added by Discern Expert. Performed By: #### 2 539974 #### LUIS MANUEL RemHemo [address] [place] [address] Neutro Absolute 5.0 E3/mcL Normal 1.4-6.5 [facility] Comment on above: Order Comment: Order Added by Discern Expert. Performed By: #### 2 043521 #### LUIS MANUEL RemHemo [address] [place] [address] Neutro Auto 69.6 % Normal 37.0-75.0 [facility] Comment on above: Order Comment: Order Added by Discern Expert. Performed By: #### 2 932497 #### LUIS MANUEL RemHemo [address] [place] [address] CBC w/ Auto Diffon 9 Erythrocyte distribution width (RBC) [Ratio] 14.0 % Normal 11.5-14.5 [facility] Comment on above: Performed By: #### 2 658564 #### LUIS MANUEL BoyerHemo [facility] [place] [address] Hematocrit (Bld) [Volume fraction] 41.4 % Low 42.0-52.0 [facility] Comment on above: Performed By: #### 2 459907 #### LUIS MANUEL BoyerHemo [address] [place] [address] Hemoglobin (Bld) [Mass/Vol] 13.9 g/dL Normal 13.5-18.0 [facility] Comment on above: Performed By: #### 2 201034 #### LUIS MANUEL BoyerHemo [facility] [place] [address] MCH (RBC) [Entitic mass] 33.7 pg High 27.0-31.0 [facility] Comment on above: Performed By: #### 2 958236 #### LUIS MANUEL BoyerHemo [address] [place] [address] MCHC (RBC) [Mass/Vol] 33.7 g/dL Normal 33.0-37.0 [facility] Comment on above: Performed By: #### 2 948714 #### LUIS MANUEL BoyerHemo [address] [place] [address] MCV (RBC) [Entitic vol] 100.0 fL Normal 78.0-100.0 [facility] Comment on above: Performed By: #### 2 731878 #### LUIS MANUEL BoyerHemo [facility] [place] [address] Platelet mean volume (Bld) [Entitic vol] 7.8 fL Normal 7.4-11.0 [facility] Comment on above: Performed By: #### 2 272092 #### LUIS MANUEL RemHemo [address] [place] [address] Platelets (Bld) [#/Vol] 245 E3/mcL Normal 130-400 [facility] Comment on above: Performed By: #### 2 248335 #### LUIS MANUEL RemHemo [address] [place] [address] RBC (Bld) [#/Vol] 4.14 E6/mcL Normal 3.90-6.[address] [facility] Comment on above: Performed By: #### 2 728050 #### LUIS MANUEL BoyerHemo [facility] [place] [address] WBC (Bld) [#/Vol] 7.2 E3/mcL Normal 3.6-11.0 [facility] Comment on above: Performed By: #### 2 858268 #### LUIS MANUEL Bedollao [facility] [place] [address] CMPon 02-24-2019 Albumin [Mass/Vol] 3.8 g/dL Normal 3.4-5.[address] [facility] Comment on above: Performed By: #### 2 451847 #### LUIS MANUEL Beodllao [facility] [place] [address] Albumin/Globulin [Mass ratio] 1.9 {ratio} Normal 1.1-1.9 [facility] Comment on above: Performed By: #### 2 455466 #### LUIS MANUEL BoyerHemo [address] [place] [address] Alk Phos 70 Int._Unit/L Normal 33-136 [facility] Comment on above: Performed By: #### 2 296603 #### LUIS MANUEL BoyerHemo [facility] [place] [address] ALT [Catalytic activity/Vol] 18 Int._Unit/L Normal 10-52 [facility] Comment on above: Performed By: #### 2 347038 #### LUIS MANUEL BoyerHemo [facility] [place] [address] Anion gap [Moles/Vol] 11 mmol/L Normal 10-20 [facility] Comment on above: Performed By: #### 2 576578 #### LUIS MANUEL BoyerHemo [address] [place] [address] AST [Catalytic activity/Vol] 19 Int._Unit/L Normal 9-39 [facility] Comment on above: Performed By: #### 2 003681 #### LUIS MANUEL BoyerHemo [address] [place] [address] Bili Total 0.83 mg/dL Normal 0.00-1.20 [facility] Comment on above: Performed By: #### 2 601735 #### LUIS MANUEL RemHemo [address] [place] [address] Calcium [Mass/Vol] 8.8 mg/dL Normal 8.6-10.[address] [facility] Comment on above: Performed By: #### 2 093085 #### LUIS MANUEL RemHemo [address] [place] [address] Chloride [Moles/Vol] 107 mmol/L Normal 98-107 [facility] Comment on above: Performed By: #### 2 972952 #### LUIS MANUEL RemHemo [address] [place] [address] CO2 [Moles/Vol] 25.0 mmol/L Normal 21.0-32.0 [facility] Comment on above: Performed By: #### 2 822238 #### LUIS MANUEL RemHemo [address] [place] [address] Creatinine [Mass/Vol] 0.8 mg/dL Normal 0.5-1.3 [facility] Comment on above: Performed By: #### 2 512853 #### LUIS MANUEL RemHemo [address] [place] [address] Globulin (S) [Mass/Vol] 2.0 g/dL Normal 2.0-4.0 [facility] Comment on above: Performed By: #### 2 341131 #### LUIS MANUEL RemHemo [address] [place] [address] Glucose [Mass/Vol] 89 mg/dL Normal 70-[address] [facility] Comment on above: Performed By: #### 2 713899 #### LUIS MANUEL RemHemo [address] [place] [address] Potassium [Moles/Vol] 3.8 mmol/L Normal 3.5-5.3 [facility] Comment on above: Performed By: #### 2 876407 #### LUIS MANUEL RemHemo [address] [place] [address] Protein [Mass/Vol] 5.8 g/dL Low 6.4-8.[address] [facility] Comment on above: Performed By: #### 2 294784 #### LUIS MANUEL RemHemo [address] [place] [address] Sodium [Moles/Vol] 139 mmol/L Normal 136-[address] [facility] Comment on above: Performed By: #### 2 341553 #### LUIS MANUEL Bedollao [facility] [place] [address] Urea nitrogen [Mass/Vol] 17 mg/dL Normal 6-23 [facility] Comment on above: Performed By: #### 2 568268 #### LUIS MANUEL BoyerHemo [address] [place] [address] Urea nitrogen/Creatinine [Mass ratio] 21.2 ratio Normal 5.4-30.0 [facility] Comment on above: Performed By: #### 2 568752 #### LUIS MANUEL BoyerHemo [address] [place] [address] eGFRon 02-24-2019 GFR/1.73 sq M predicted among non-blacks MDRD (S/P/Bld) [Vol rate/Area] mL/min/{1.73_m2} Normal [facility] Comment on above: Order Comment: Order Added by Discern Expert. Performed By: #### 2 421541 #### LUIS MANUEL BoyerHemo [address] [place] [address] Auto Diffon 11-23-2018 Basophils (Bld) [#/Vol] 0.0 E3/mcL Normal 0.0-0.2 [facility] Comment on above: Order Comment: Order Added by Discern Expert. Performed By: #### 2 706004 #### LUIS MANUEL BoyerHemo [address] [place] [address] Basophils/100 WBC (Bld) 0.3 % Normal 0.0-2.0 [facility] Comment on above: Order Comment: Order Added by Discern Expert. Performed By: #### 2 565166 #### LUIS MANUEL BoyerHemo [facility] [place] [address] Eos Absolute 0.1 E3/mcL Normal 0.0-0.7 [facility] Comment on above: Order Comment: Order Added by Discern Expert. Performed By: #### 2 067165 #### LUIS MANUEL BoyerHemo [address] [place] [address] Eosinophils/100 WBC (Bld) 1.5 % Normal 0.0-11.0 [facility] Comment on above: Order Comment: Order Added by Discern Expert. Performed By: #### 2 488516 #### LUIS MANUEL BoyerHemo [address] [place] [address] Lymphocytes (Bld) [#/Vol] 1.1 E3/mcL Low 1.2-3.4 [facility] Comment on above: Order Comment: Order Added by Discern Expert. Performed By: #### 2 157874 #### LUIS MANUEL Bedollao [address] [place] [address] Lymphocytes/100 WBC (Bld) 13.9 % Low 20.0-55.0 [facility] Comment on above: Order Comment: Order Added by Discern Expert. Performed By: #### 2 562195 #### LUIS MANUEL BoyerHemo [address] [place] [address] Chase Absolute 0.8 E3/mcL High 0.0-0.7 [facility] Comment on above: Order Comment: Order Added by Discern Expert. Performed By: #### 2 860824 #### LUIS MANUEL BoyerHemo [address] [place] [address] Monocytes/100 WBC (Bld) 10.5 % High 0.0-10.0 [facility] Comment on above: Order Comment: Order Added by Discern Expert. Performed By: #### 2 492998 #### LUIS MANUEL BoyerHemo [address] [place] [address] Neutro Absolute 5.8 E3/mcL Normal 1.4-6.5 [facility] Comment on above: Order Comment: Order Added by Discern Expert. Performed By: #### 2 666444 #### LUIS MANUEL BoyerHemo [address] [place] [address] Neutro Auto 73.8 % Normal 37.0-75.0 [facility] Comment on above: Order Comment: Order Added by Discern Expert. Performed By: #### 2 681707 #### LUIS MANUEL BoyerHemo [address] [place] [address] CBC w/ Auto Diffon 9 Erythrocyte distribution width (RBC) [Ratio] 13.4 % Normal 11.5-14.5 [facility] Comment on above: Performed By: #### 2 454612 #### LUIS MANUEL RemHemo [address] [place] [address] Hematocrit (Bld) [Volume fraction] 43.0 % Normal 42.0-52.0 [facility] Comment on above: Performed By: #### 2 982889 #### LUIS MANUEL RemHemo [address] [place] [address] Hemoglobin (Bld) [Mass/Vol] 14.3 g/dL Normal 13.5-18.0 [facility] Comment on above: Performed By: #### 2 103718 #### LUIS MANUEL RemHemo [address] [place] [address] MCH (RBC) [Entitic mass] 33.5 pg High 27.0-31.0 [facility] Comment on above: Performed By: #### 2 177218 #### LUIS MANUEL RemHemo [address] [place] [address] MCHC (RBC) [Mass/Vol] 33.2 g/dL Normal 33.0-37.0 [facility] Comment on above: Performed By: #### 2 768356 #### LUIS MANUEL RemHemo [address] [place] [address] MCV (RBC) [Entitic vol] 101.0 fL High 78.0-100.0 [facility] Comment on above: Performed By: #### 2 129696 #### LUIS MANUEL RemHemo [address] [place] [address] Platelet mean volume (Bld) [Entitic vol] 8.1 fL Normal 7.4-11.0 [facility] Comment on above: Performed By: #### 2 000346 #### LUIS MANUEL RemHemo [address] [place] [address] Platelets (Bld) [#/Vol] 260 E3/mcL Normal 130-400 [facility] Comment on above: Performed By: #### 2 711671 #### LUIS MANUEL RemHemo [address] [place] [address] RBC (Bld) [#/Vol] 4.25 E6/mcL Normal 3.90-6.[address] [facility] Comment on above: Performed By: #### 2 501602 #### LUIS MANUEL BoyerHemo [address] [place] [address] WBC (Bld) [#/Vol] 7.9 E3/mcL Normal 3.6-11.0 [facility] Comment on above: Performed By: #### 2 852302 #### LUIS MANUEL BoyerHemo [address] [place] [address] CMPon 11-23-2018 Albumin [Mass/Vol] 4.2 g/dL Normal 3.4-5.[address] [facility] Comment on above: Performed By: #### 2 217843 #### LUIS MANUEL BoyerHemo [address] [place] [address] Albumin/Globulin [Mass ratio] 2.1 {ratio} High 1.1-1.9 [facility] Comment on above: Performed By: #### 2 250708 #### LUIS MANUEL BoyerHemo [address] [place] [address] Alk Phos 66 Int._Unit/L Normal 33-136 [facility] Comment on above: Performed By: #### 2 202968 #### LUIS MANUEL RemHemo [address] [place] [address] ALT [Catalytic activity/Vol] 18 Int._Unit/L Normal 10-52 [facility] Comment on above: Performed By: #### 2 668297 #### LUIS MANUEL BoyerHemo [address] [place] [address] Anion gap [Moles/Vol] 9 mmol/L Low 10-20 [facility] Comment on above: Performed By: #### 2 788855 #### LUIS MANUEL RemHemo [address] [place] [address] AST [Catalytic activity/Vol] 19 Int._Unit/L Normal 9-39 [facility] Comment on above: Performed By: #### 2 771251 #### LUIS MANUEL BoyerHemo [address] [place] [address] Bili Total 0.78 mg/dL Normal 0.00-1.20 [facility] Comment on above: Performed By: #### 2 517304 #### LUIS MANUEL BoyerHemo [address] [place] [address] Calcium [Mass/Vol] 9.1 mg/dL Normal 8.6-10.[address] [facility] Comment on above: Performed By: #### 2 983221 #### LUIS MANUEL BoyerHemo [address] [place] [address] Chloride [Moles/Vol] 108 mmol/L High 98-107 [facility] Comment on above: Performed By: #### 2 888447 #### LUIS MANUEL RemHemo [address] [place] [address] CO2 [Moles/Vol] 28.0 mmol/L Normal 21.0-32.0 [facility] Comment on above: Performed By: #### 2 679286 #### LUIS MANUEL BoyerHemo [address] [place] [address] Creatinine [Mass/Vol] 0.9 mg/dL Normal 0.5-1.3 [facility] Comment on above: Performed By: #### 2 812214 #### LUIS MANUEL RemHemo [address] [place] [address] Globulin (S) [Mass/Vol] 2.0 g/dL Normal 2.0-4.0 [facility] Comment on above: Performed By: #### 2 002211 #### LUIS MANUEL RemHemo [address] [place] [address] Glucose [Mass/Vol] 81 mg/dL Normal 70-[address] [facility] Comment on above: Performed By: #### 2 375049 #### LUIS MANUEL RemHemo [address] [place] [address] Potassium [Moles/Vol] 3.8 mmol/L Normal 3.5-5.3 [facility] Comment on above: Performed By: #### 2 003762 #### LUIS MANUEL RemHemo [address] [place] [address] Protein [Mass/Vol] 6.2 g/dL Low 6.4-8.[address] [facility] Comment on above: Performed By: #### 2 407983 #### LUIS MANUEL RemHemo [address] [place] [address] Sodium [Moles/Vol] 142 mmol/L Normal 136-[address] [facility] Comment on above: Performed By: #### 2 190706 #### LUIS MANUEL BoyerHemo [address] [place] [address] Urea nitrogen [Mass/Vol] 26 mg/dL High 6-23 [facility] Comment on above: Performed By: #### 2 083316 #### LUIS MANUEL BoyerHemo [address] [place] [address] Urea nitrogen/Creatinine [Mass ratio] 28.9 ratio Normal 5.4-30.0 [facility] Comment on above: Performed By: #### 2 430556 #### LUIS MANUEL BoyerHemo [address] [place] [address] eGFRon 11-23-2018 GFR/1.73 sq M predicted among non-blacks MDRD (S/P/Bld) [Vol rate/Area] mL/min/{1.73_m2} Normal [facility] Comment on above: Order Comment: Order Added by Discern Expert. Performed By: #### 2 292295 #### LUIS MANUEL BoyerHemo [address] [place] [address] CMPon 09-09-2018 Albumin [Mass/Vol] 3.9 g/dL Normal 3.4-5.[address] [facility] Comment on above: Performed By: #### 2 790078 #### LUIS MANUEL BoyerChem [address] [place] [address] Albumin/Globulin [Mass ratio] 2.3 {ratio} High 1.1-1.9 [facility] Comment on above: Performed By: #### 2 977982 #### LUIS MANUEL Rem[employer] [address] [place] [address] Alk Phos 68 Int._Unit/L Normal 33-136 [facility] Comment on above: Performed By: #### 2 193082 #### LUIS MANUEL RemChem [address] [place] [address] ALT [Catalytic activity/Vol] 22 Int._Unit/L Normal 10-52 [facility] Comment on above: Performed By: #### 2 401241 #### LUIS MANUEL RemChem [address] [place] [address] AST [Catalytic activity/Vol] 20 Int._Unit/L Normal 9-39 [facility] Comment on above: Performed By: #### 2 425564 #### LUIS MANUEL RemChem [address] [place] [address] Bili Total 0.8 mg/dL Normal 0.0-1.2 [facility] Comment on above: Performed By: #### 2 372484 #### LUIS MANUEL Rem[employer] [address] [place] [address] Calcium [Mass/Vol] 8.8 mg/dL Normal 8.6-10.[address] [facility] Comment on above: Performed By: #### 2 670383 #### LUIS MANUEL RemChem [address] [place] [address] Chloride [Moles/Vol] 106 mmol/L Normal 98-107 [facility] Comment on above: Performed By: #### 2 519266 #### LUIS MANUEL RemChem [address] [place] [address] CO2 [Moles/Vol] 27.0 mmol/L Normal 21.0-32.0 [facility] Comment on above: Performed By: #### 2 051773 #### LUIS MANUEL Rem[employer] [address] [place] [address] Creatinine [Mass/Vol] 0.8 mg/dL Normal 0.5-1.3 [facility] Comment on above: Performed By: #### 2 043464 #### LUIS MANUEL Rem[employer] [address] [place] [address] Globulin (S) [Mass/Vol] 2.0 g/dL Normal 2.0-4.0 [facility] Comment on above: Performed By: #### 2 088434 #### LUIS MANUEL [employer] [address] [place] [address] Glucose [Mass/Vol] 89 mg/dL Normal 70-[address] [facility] Comment on above: Performed By: #### 2 764110 #### LUIS MANUEL Rem[employer] [address] [place] [address] Potassium [Moles/Vol] 3.7 mmol/L Normal 3.5-5.3 [facility] Comment on above: Performed By: #### 2 133026 #### LUIS MANUEL [employer] [address] [place] [address] Protein [Mass/Vol] 5.6 g/dL Low 6.4-8.[address] [facility] Comment on above: Performed By: #### 2 481956 #### LUIS MANUEL Rem[employer] [address] [place] [address] Sodium [Moles/Vol] 139 mmol/L Normal 136-[address] [facility] Comment on above: Performed By: #### 2 408302 #### LUIS MANUEL Rem[employer] [address] [place] [address] Urea nitrogen [Mass/Vol] 21 mg/dL Normal 6-23 [facility] Comment on above: Performed By: #### 2 979551 #### LUIS MANUEL RemChem [facility] [place] [address] Urea nitrogen/Creatinine [Mass ratio] 26.2 ratio Normal 5.4-30.0 [facility] Comment on above: Performed By: #### 2 068549 #### LUIS MANUEL RemChem [facility] [place] [address] Anion gap [Moles/Vol] 10 mmol/L Normal 10-20 [facility] Comment on above: Performed By: #### 2 179528 #### LUIS MANUEL Rem[employer] [address] [place] [address] LDL Directon 09-09-2018 Cholesterol in LDL [Mass/Vol] 106 mg/dL Normal 0-129 [facility] Comment on above: Performed By: #### 2 586666 #### LUIS MANUEL BoyerHemo [address] [place] [address] eGFRon 09-09-2018 GFR/1.73 sq M predicted among non-blacks MDRD (S/P/Bld) [Vol rate/Area] mL/min/{1.73_m2} Normal [facility] Comment on above: Order Comment: Order added by Discern Expert. Performed By: #### 1 [id number] #### LUIS MANUEL Rem[facility] [address] [place] [address] Auto Diffon 08-30-2018 Basophils (Bld) [#/Vol] 0.1 E3/mcL Normal 0.0-0.2 [facility] Comment on above: Order Comment: Order Added by Discern Expert. Performed By: #### 2 636812 #### LUIS MANUEL RemHemo [address] [place] [address] Basophils/100 WBC (Bld) 0.8 % Normal 0.0-2.0 [facility] Comment on above: Order Comment: Order Added by Discern Expert. Performed By: #### 2 312813 #### LUIS MANUEL RemHemo [address] [place] [address] Eos Absolute 0.2 E3/mcL Normal 0.0-0.7 [facility] Comment on above: Order Comment: Order Added by Discern Expert. Performed By: #### 2 992129 #### LUIS MANUEL RemHemo [address] [place] [address] Eosinophils/100 WBC (Bld) 2.6 % Normal 0.0-11.0 [facility] Comment on above: Order Comment: Order Added by Discern Expert. Performed By: #### 2 524053 #### LUIS MANUEL RemHemo [address] [place] [address] Lymphocytes (Bld) [#/Vol] 1.3 E3/mcL Normal 1.2-3.4 [facility] Comment on above: Order Comment: Order Added by Discern Expert. Performed By: #### 2 360406 #### LUIS MANUEL RemHemo [address] [place] [address] Lymphocytes/100 WBC (Bld) 17.4 % Low 20.0-55.0 [facility] Comment on above: Order Comment: Order Added by Discern Expert. Performed By: #### 2 861930 #### LUIS MANUEL RemHemo [address] [place] [address] Chase Absolute 0.7 E3/mcL Normal 0.0-0.7 [facility] Comment on above: Order Comment: Order Added by Discern Expert. Performed By: #### 2 608916 #### LUIS MANUEL RemHemo [address] [place] [address] Monocytes/100 WBC (Bld) 9.2 % Normal 0.0-10.0 [facility] Comment on above: Order Comment: Order Added by Discern Expert. Performed By: #### 2 046455 #### LUIS MANUEL RemHemo [address] [place] [address] Neutro Absolute 5.2 E3/mcL Normal 1.4-6.5 [facility] Comment on above: Order Comment: Order Added by Discern Expert. Performed By: #### 2 924970 #### LUIS MANUEL BoyerHemo [address] [place] [address] Neutro Auto 70.0 % Normal 37.0-75.0 [facility] Comment on above: Order Comment: Order Added by Discern Expert. Performed By: #### 2 [id number] #### LUIS MANUEL BoyerHemo [facility] [place] [address] CBC w/ Auto Diffon 8 Erythrocyte distribution width (RBC) [Ratio] 14.0 % Normal 11.5-14.5 [facility] Comment on above: Performed By: #### 2 [id number] #### LUIS MANUEL BoyerHemo [facility] [place] [id number] Hematocrit (Bld) [Volume fraction] 40.9 % Low 42.0-52.0 [facility] Comment on above: Performed By: #### 2 [id number] #### LUIS MANUEL BoyerHemo [facility] [place] [address] Hemoglobin (Bld) [Mass/Vol] 13.9 g/dL Normal 13.5-18.0 [facility] Comment on above: Performed By: #### 2 [id number] #### LUIS MANUEL BoyerHemo [facility] [place] [address] MCH (RBC) [Entitic mass] 34.0 pg High 27.0-31.0 [facility] Comment on above: Performed By: #### 2 [id number] #### LUIS MANUEL BoyerHemo [address] [place] [address] MCHC (RBC) [Mass/Vol] 33.9 g/dL Normal 33.0-37.0 [facility] Comment on above: Performed By: #### 2 [id number] #### LUIS MANUEL RemHemo [address] [place] [address] MCV (RBC) [Entitic vol] 100.3 fL High 78.0-100.0 [facility] Comment on above: Performed By: #### 2 [id number] #### LUIS MANUEL BoyerHemo [address] [place] [address] Platelet mean volume (Bld) [Entitic vol] 7.9 fL Normal 7.4-11.0 [facility] Comment on above: Performed By: #### 2 [id number] #### LUIS MANUEL BoyerHemo [address] [place] [address] Platelets (Bld) [#/Vol] 247 E3/mcL Normal 130-400 [facility] Comment on above: Performed By: #### 2 [id number] #### LUIS MANUEL BoyerHemo [address] [place] [address] RBC (Bld) [#/Vol] 4.08 E6/mcL Normal 3.90-6.[address] [facility] Comment on above: Performed By: #### 2 [id number] #### LUIS MANUEL BoyerHemo [address] [place] [address] WBC (Bld) [#/Vol] 7.4 E3/mcL Normal 3.6-11.0 [facility] Comment on above: Performed By: #### 2 [id number] #### LUIS MANUEL BoyerHemo [address] [place] [address] CMPon 08-30-2018 Albumin [Mass/Vol] 3.9 g/dL Normal 3.4-5.[address] [facility] Comment on above: Performed By: #### 2 [id number] #### LUIS MANUEL [facility] [address] [place] [address] Albumin/Globulin [Mass ratio] 2.4 {ratio} High 1.1-1.9 [facility] Comment on above: Performed By: #### 2 [id number] #### LUIS MANUEL [facility] [address] [place] [address] Alk Phos 64 Int._Unit/L Normal 33-136 [facility] Comment on above: Performed By: #### 2 470602 #### LUIS MANUEL [employer] [address] [place] [address] ALT [Catalytic activity/Vol] 20 Int._Unit/L Normal 10-52 [facility] Comment on above: Performed By: #### 2 [id number] #### LUIS MANUEL [facility] [address] [place] [address] Anion gap [Moles/Vol] 9 mmol/L Low 10-20 [facility] Comment on above: Performed By: #### 2 [id number] #### LUIS MANUEL [facility] [address] [place] [address] AST [Catalytic activity/Vol] 20 Int._Unit/L Normal 9-39 [facility] Comment on above: Performed By: #### 2 [id number] #### LUIS MANUEL [facility] [address] [place] [address] Bili Total 0.8 mg/dL Normal 0.0-1.2 [facility] Comment on above: Performed By: #### 2 [id number] #### LUIS MANUEL [facility] [address] [place] [address] Calcium [Mass/Vol] 8.8 mg/dL Normal 8.6-10.[address] [facility] Comment on above: Performed By: #### 2 [id number] #### LUIS MANUEL [employer] [address] [place] [address] Chloride [Moles/Vol] 107 mmol/L Normal 98-107 [facility] Comment on above: Performed By: #### 2 [id number] #### LUIS MANUEL [employer] [address] [place] [address] CO2 [Moles/Vol] 27.0 mmol/L Normal 21.0-32.0 [facility] Comment on above: Performed By: #### 2 867251 #### LUIS MANUEL [facility] [address] [place] [address] Creatinine [Mass/Vol] 0.8 mg/dL Normal 0.5-1.3 [facility] Comment on above: Performed By: #### 2 475248 #### LUIS MANUEL [facility] [address] [place] [address] Globulin (S) [Mass/Vol] 2.0 g/dL Normal 2.0-4.0 [facility] Comment on above: Performed By: #### 2 [id number] #### LUIS MANUEL [facility] [address] [place] [address] Glucose [Mass/Vol] 88 mg/dL Normal 70-[address] [facility] Comment on above: Performed By: #### 2 [id number] #### LUIS MANUEL [facility] [address] [place] [address] Potassium [Moles/Vol] 3.9 mmol/L Normal 3.5-5.3 [facility] Comment on above: Performed By: #### 2 889245 #### LUIS MANUEL [facility] [address] [place] [address] Protein [Mass/Vol] 5.5 g/dL Low 6.4-8.[address] [facility] Comment on above: Performed By: #### 2 775845 #### LUIS MANUEL [employer] [place] [address] Sodium [Moles/Vol] 139 mmol/L Normal 136-[address] [facility] Comment on above: Performed By: #### 2 979369 #### LUIS MANUEL [employer] [address] [place] [address] Urea nitrogen [Mass/Vol] 22 mg/dL Normal 6-23 [facility] Comment on above: Performed By: #### 2 [id number] #### LUIS MANUEL [employer] [address] [place] [address] Urea nitrogen/Creatinine [Mass ratio] 27.5 ratio Normal 5.4-30.0 [facility] Comment on above: Performed By: #### 2 999689 #### LUIS MANUEL [employer] [address] [place] [address] eGFRon 08-30-2018 GFR/1.73 sq M predicted among non-blacks MDRD (S/P/Bld) [Vol rate/Area] mL/min/{1.73_m2} Normal [facility] Comment on above: Order Comment: Order added by Discern Expert. Performed By: #### 1 [id number] #### LUIS MANUEL [facility] [address] [place] [address] Auto Diffon 05-31-2018 Basophils (Bld) [#/Vol] 0.0 E3/mcL Normal 0.0-0.2 [facility] Comment on above: Order Comment: Order Added by Discern Expert. Performed By: #### 2 [id number] #### LUIS MANUEL BoyerHemo [address] [place] [address] Basophils/100 WBC (Bld) 0.6 % Normal 0.0-2.0 [facility] Comment on above: Order Comment: Order Added by Discern Expert. Performed By: #### 2 [id number] #### LUIS MANUEL RemHemo [address] [place] [address] Eos Absolute 0.2 E3/mcL Normal 0.0-0.7 [facility] Comment on above: Order Comment: Order Added by Discern Expert. Performed By: #### 2 986683 #### LUIS MANUEL RemHemo [address] [place] [address] Eosinophils/100 WBC (Bld) 2.6 % Normal 0.0-11.0 [facility] Comment on above: Order Comment: Order Added by Discern Expert. Performed By: #### 2 [id number] #### LUIS MANUEL RemHemo [address] [place] [address] Lymphocytes (Bld) [#/Vol] 1.5 E3/mcL Normal 1.2-3.4 [facility] Comment on above: Order Comment: Order Added by Discern Expert. Performed By: #### 2 [id number] #### LUIS MANUEL RemHemo [address] [place] [address] Lymphocytes/100 WBC (Bld) 19.5 % Low 20.0-55.0 [facility] Comment on above: Order Comment: Order Added by Discern Expert. Performed By: #### 2 [id number] #### LUIS MANUEL RemHemo [address] [place] [address] Chase Absolute 0.6 E3/mcL Normal 0.0-0.7 [facility] Comment on above: Order Comment: Order Added by Discern Expert. Performed By: #### 2 695947 #### LUIS MANUEL RemHemo [address] [place] [address] Monocytes/100 WBC (Bld) 8.2 % Normal 0.0-10.0 [facility] Comment on above: Order Comment: Order Added by Discern Expert. Performed By: #### 2 [id number] #### LUIS MANUEL RemHemo [address] [place] [address] Neutro Absolute 5.4 E3/mcL Normal 1.4-6.5 [facility] Comment on above: Order Comment: Order Added by Discern Expert. Performed By: #### 2 087178 #### LUIS MANUEL RemHemo [address] [place] [address] Neutro Auto 69.1 % Normal 37.0-75.0 [facility] Comment on above: Order Comment: Order Added by Discern Expert. Performed By: #### 2 [id number] #### LUIS MANUEL RemHemo [address] [place] [address] CBC w/ Auto Diffon 8 Erythrocyte distribution width (RBC) [Ratio] 13.2 % Normal 11.5-14.5 [facility] Comment on above: Performed By: #### 2 501648 #### LUIS MANUEL RemHemo [address] [place] [address] Hematocrit (Bld) [Volume fraction] 41.1 % Low 42.0-52.0 [facility] Comment on above: Performed By: #### 2 536958 #### LUIS MANUEL RemHemo [address] [place] [address] Hemoglobin (Bld) [Mass/Vol] 14.0 g/dL Normal 13.5-18.0 [facility] Comment on above: Performed By: #### 2 164639 #### LUIS MANUEL RemHemo [address] [place] [address] MCH (RBC) [Entitic mass] 34.4 pg High 27.0-31.0 [facility] Comment on above: Performed By: #### 2 993112 #### LUIS MANUEL RemHemo [address] [place] [address] MCHC (RBC) [Mass/Vol] 34.2 g/dL Normal 33.0-37.0 [facility] Comment on above: Performed By: #### 2 790900 #### LUIS MANUEL RemHemo [address] [place] [address] MCV (RBC) [Entitic vol] 100.5 fL High 78.0-100.0 [facility] Comment on above: Performed By: #### 2 060042 #### LUIS MANUEL RemHemo [address] [place] [address] Platelet mean volume (Bld) [Entitic vol] 8.2 fL Normal 7.4-11.0 [facility] Comment on above: Performed By: #### 2 390220 #### LUIS MANUEL RemHemo [address] [place] [address] Platelets (Bld) [#/Vol] 247 E3/mcL Normal 130-400 [facility] Comment on above: Performed By: #### 2 077625 #### LUIS MANUEL RosalindHemo [address] [place] [address] RBC (Bld) [#/Vol] 4.08 E6/mcL Normal 3.90-6.[address] [facility] Comment on above: Performed By: #### 2 372250 #### LUIS MANUEL RemHemo [address] [place] [address] WBC (Bld) [#/Vol] 7.9 E3/mcL Normal 3.6-11.0 [facility] Comment on above: Performed By: #### 2 519133 #### LUIS MANUEL RosalindHemo [address] [place] [address] CMPon 05-31-2018 Albumin [Mass/Vol] 3.7 g/dL Normal 3.2-5.[address] [facility] Comment on above: Performed By: #### 2 496907 #### LUIS MANUELReji [facility] [address] [place] [address] Albumin/Globulin [Mass ratio] 1.6 {ratio} Normal 1.1-1.9 [facility] Comment on above: Performed By: #### 2 113801 #### LUIS MANUEL [facility] [address] [place] [address] Alk Phos 57 Int._Unit/L Normal 42-121 [facility] Comment on above: Performed By: #### 2 060888 #### LUIS MANUEL [facility] [address] [place] [address] ALT [Catalytic activity/Vol] 29 Int._Unit/L Normal 10-40 [facility] Comment on above: Performed By: #### 2 [id number] #### LUIS MANUELReji [facility] [address] [place] [address] AST [Catalytic activity/Vol] 25 Int._Unit/L Normal 10-42 [facility] Comment on above: Performed By: #### 2 271256 #### LUIS MANUEL [facility] [address] [place] [address] Bili Total 1.0 mg/dL Normal 0.2-1.0 [facility] Comment on above: Performed By: #### 2 338862 #### LUIS MANUEL [facility] [address] [place] [address] Calcium [Mass/Vol] 8.9 mg/dL Normal 8.4-10.[address] [facility] Comment on above: Performed By: #### 2 265261 #### LUIS MANUEL [facility] [address] [place] [address] Chloride [Moles/Vol] 105 mmol/L Normal 98-107 [facility] Comment on above: Performed By: #### 2 745219 #### LUIS MANUEL [facility] [address] [place] [address] CO2 [Moles/Vol] 24.6 mmol/L Normal 24.0-30.0 [facility] Comment on above: Performed By: #### 2 675903 #### LUIS MANUEL [facility] [address] [place] [address] Creatinine [Mass/Vol] 0.8 mg/dL Normal 0.6-1.3 [facility] Comment on above: Performed By: #### 2 796970 #### LUIS MANUEL [facility] [address] [place] [address] Globulin (S) [Mass/Vol] 2.3 g/dL Normal 2.0-4.0 [facility] Comment on above: Performed By: #### 2 483915 #### LUIS MANUEL [facility] [address] [place] [address] Glucose [Mass/Vol] 92 mg/dL Normal 70-[address] [facility] Comment on above: Performed By: #### 2 [id number] #### LUIS MANUEL [facility] [address] [place] [address] Potassium [Moles/Vol] 3.5 mmol/L Normal 3.5-5.1 [facility] Comment on above: Performed By: #### 2 036048 #### LUIS MANUEL [facility] [address] [place] [address] Protein [Mass/Vol] 6.0 g/dL Low 6.4-8.[address] [facility] Comment on above: Performed By: #### 2 838845 #### LUIS MANUEL [facility] [address] [place] [address] Sodium [Moles/Vol] 139 mmol/L Normal 136-[address] [facility] Comment on above: Performed By: #### 2 816323 #### LUIS MANUEL [facility] [address] [place] [address] Urea nitrogen [Mass/Vol] 23 mg/dL High 7-18 [facility] Comment on above: Performed By: #### 2 967260 #### LUIS MANUEL [facility] [address] [place] [address] Urea nitrogen/Creatinine [Mass ratio] 28.8 ratio Normal 5.4-30.0 [facility] Comment on above: Performed By: #### 2 577703 #### LUIS MANUEL [facility] [address] [place] [address] eGFRon 05-31-2018 GFR/1.73 sq M predicted among non-blacks MDRD (S/P/Bld) [Vol rate/Area] mL/min/{1.73_m2} Normal [facility] Comment on above: Order Comment: Order added by Discern Expert. Performed By: #### 1 [id number] #### LUIS MANUEL [employer] [address] [place] [address] No Panel Information [facility] Vital Signs Date Time Vital Sign Value Performing Clinician Facility 05-20-2025 13:00-0400 Heart rate 81 /min Carri Greer MD Work Phone: [facility] 05-20-2025 13:00-0400 SaO2% (BldA) [Mass fraction] 89 % Carri Greer MD Work Phone: [facility] 05-20-2025 12:45-0400 Body temperature 97.7 [degF] Carri Greer MD Work Phone: [facility] 05-20-2025 12:45-0400 Diastolic blood pressure 78 mm[Hg] Carri Greer MD Work Phone: [facility] 05-20-2025 12:45-0400 Respiratory rate 16 /min Carri Greer MD Work Phone: [facility] 05-20-2025 12:45-0400 Systolic blood pressure 149 mm[Hg] Carri Greer MD Work Phone: [facility] 05-10-2025 21:57-0400 Body height 167.6 cm Carri Greer MD Work Phone: [facility] 05-10-2025 21:57-0400 Body mass index (BMI) [Ratio] 23.57 kg/m2 Carri Greer MD Work Phone: [facility] 05-10-2025 21:57-0400 Body weight 66.22 kg Carri Greer MD Work Phone: [facility] 05-10-2025 20:16-0400 Diastolic blood pressure 57 mm[Hg] Santiago Menendez DO Work Phone: [facility] 05-10-2025 20:16-0400 Heart rate 85 /min Santiago Menendez DO Work Phone: [facility] 05-10-2025 20:16-0400 Respiratory rate 16 /min Santiago Menendez DO Work Phone: [facility] 05-10-2025 20:16-0400 SaO2% (BldA) [Mass fraction] 93 % Santiago Menendez DO Work Phone: [facility] 05-10-2025 20:16-0400 Systolic blood pressure 108 mm[Hg] Santiago Menendez DO Work Phone: [facility] 05-10-2025 13:56-0400 Body height 167.6 cm Santiago Menendez DO Work Phone: [facility] 05-10-2025 13:56-0400 Body mass index (BMI) [Ratio] 23.57 kg/m2 Santiago Menendez DO Work Phone: [facility] 05-10-2025 13:56-0400 Body temperature 97.9 [degF] Santiago Menendez DO Work Phone: [facility] 05-10-2025 13:56-0400 Body weight 66.22 kg Santiago Menendez DO Work Phone: [facility] 05-07-2025 15:22-0400 Body height 167.6 cm Don Barrera MD Work Phone: [facility] 05-07-2025 15:22-0400 Body mass index (BMI) [Ratio] 23.6 kg/m2 Don Barrera MD Work Phone: [facility] 05-07-2025 15:22-0400 Body weight 66.32 kg Don Barrera MD Work Phone: [facility] 05-07-2025 15:22-0400 Diastolic blood pressure 70 mm[Hg] Don Barrera MD Work Phone: [facility] 05-07-2025 15:22-0400 Heart rate 71 /min Don Barrera MD Work Phone: [facility] 05-07-2025 15:22-0400 SaO2% (BldA) [Mass fraction] 95 % Don Barrera MD Work Phone: [facility] 05-07-2025 15:22-0400 Systolic blood pressure 120 mm[Hg] Don Barrera MD Work Phone: [facility] 04-10-2025 11:09-0400 Body height 167.6 cm Lincoln King GRAPHIC DESIGN ASSISTANT-CLAIM TAKER Work Phone: [facility] 04-10-2025 11:09-0400 Body mass index (BMI) [Ratio] 24.37 kg/m2 Lincoln King GRAPHIC DESIGN ASSISTANT-CLAIM TAKER Work Phone: [facility] 04-10-2025 11:09-0400 Body temperature 97.59 [degF] Lincoln Christine GRAPHIC DESIGN ASSISTANT-CLAIM TAKER Work Phone: [facility] 04-10-2025 11:09-0400 Body weight 68.49 kg Lincoln King GRAPHIC DESIGN ASSISTANT-CLAIM TAKER Work Phone: [facility] 04-10-2025 11:09-0400 Diastolic blood pressure 79 mm[Hg] Lincoln Collierta GRAPHIC DESIGN ASSISTANT-CLAIM TAKER Work Phone: [facility] 04-10-2025 11:09-0400 SaO2% (BldA) [Mass fraction] 97 % Lincoln King GRAPHIC DESIGN ASSISTANT-CLAIM TAKER Work Phone: [facility] 04-10-2025 11:09-0400 Systolic blood pressure 144 mm[Hg] Lincoln Collierta GRAPHIC DESIGN ASSISTANT-CLAIM TAKER Work Phone: [facility] 04-10-2025 07:57-0400 Body temperature 97.7 [degF] Eladio Kingsley Jr., DPM Work Phone: [facility] 04-10-2025 07:57-0400 Diastolic blood pressure 74 mm[Hg] Eladio Kingsley Jr., DPM Work Phone: [facility] 04-10-2025 07:57-0400 Heart rate 59 /min Eladio Kingsley Jr., DPM Work Phone: [facility] 04-10-2025 07:57-0400 Systolic blood pressure 125 mm[Hg] Eladio Kingsley Jr., DPM Work Phone: [facility] 01-09-2025 08:09-0400 Body temperature 97.59 [degF] Eladio Kingsley Jr., DPM Work Phone: [facility] 01-09-2025 08:09-0400 Diastolic blood pressure 72 mm[Hg] Eladio Sancho Mendoza., DPM Work Phone: [facility] 01-09-2025 08:09-0400 Heart rate 60 /min Eladio Kingsley Jr., DPM Work Phone: [facility] 01-09-2025 08:09-0400 Systolic blood pressure 127 mm[Hg] Eladio Kingsley Jr., DPM Work Phone: [facility] 11-20-2024 07:59-0500 Body height 167.6 cm Don Barrera MD Work Phone: [facility] 11-20-2024 07:59-0500 Body mass index (BMI) [Ratio] 24.66 kg/m2 Don Barrera MD Work Phone: [facility] 11-20-2024 07:59-0500 Body weight 69.31 kg Don Barrera MD Work Phone: [facility] 11-20-2024 07:59-0500 Diastolic blood pressure 70 mm[Hg] Don Barrera MD Work Phone: [facility] 11-20-2024 07:59-0500 Heart rate 65 /min Don Barrera MD Work Phone: [facility] 11-20-2024 07:59-0500 SaO2% (BldA) [Mass fraction] 99 % Don Barrera MD Work Phone: [facility] 11-20-2024 07:59-0500 Systolic blood pressure 110 mm[Hg] Don Barrera MD Work Phone: [facility] 10-01-2024 08:02-0500 Diastolic blood pressure 73 mm[Hg] Eladio Kingsley Jr., DPM Work Phone: [facility] 10-01-2024 08:02-0500 Heart rate 59 /min Eladio Kingsley Jr., DPM Work Phone: [facility] 10-01-2024 08:02-0500 Systolic blood pressure 135 mm[Hg] Eladio Kingsley Jr., DPM Work Phone: [facility] 10-01-2024 07:58-0500 Body temperature 98.2 [degF] Eladiomiguel Kingsley Jr., DPM Work Phone: [facility] 09-01-2024 11:43-0500 Body height 167.6 cm Don Barrera MD Work Phone: [facility] 09-01-2024 11:43-0500 Body mass index (BMI) [Ratio] 24.31 kg/m2 Don Barrera MD Work Phone: [facility] 09-01-2024 11:43-0500 Body weight 68.31 kg Don Barrera MD Work Phone: [facility] 09-01-2024 11:43-0500 Diastolic blood pressure 80 mm[Hg] Don Barrera MD Work Phone: [facility] 09-01-2024 11:43-0500 Heart rate 139 /min Don Barrera MD Work Phone: [facility] 09-01-2024 11:43-0500 SaO2% (BldA) [Mass fraction] 96 % Don Barrera MD Work Phone: [facility] 09-01-2024 11:43-0500 Systolic blood pressure 150 mm[Hg] Don Barrera MD Work Phone: [facility] 07-03-2024 11:57-0400 Body height 167.6 cm Otoniel Salcedo MD Work Phone: [facility] 07-03-2024 11:57-0400 Body mass index (BMI) [Ratio] 24.16 kg/m2 Otoniel Salcedo MD Work Phone: [facility] 07-03-2024 11:57-0400 Body weight 67.9 kg Otoniel Salcedo MD Work Phone: [facility] 07-03-2024 11:57-0400 Diastolic blood pressure 62 mm[Hg] Otoniel Salcedo MD Work Phone: [facility] 07-03-2024 11:57-0400 Heart rate 63 /min Otoniel Salcedo MD Work Phone: [facility] 07-03-2024 11:57-0400 SaO2% (BldA) [Mass fraction] 96 % Otoniel Salcedo MD Work Phone: [facility] 07-03-2024 11:57-0400 Systolic blood pressure 126 mm[Hg] Otoniel aSlcedo MD Work Phone: [facility] 06-06-2024 07:58-0400 Body temperature 97.9 [degF] Eladio Sancho Jr., DPM Work Phone: [facility] 06-06-2024 07:58-0400 Diastolic blood pressure 63 mm[Hg] Eladio Sancho Jr., DPM Work Phone: [facility] 06-06-2024 07:58-0400 Heart rate 71 /min Eladio Sancho Jr., DPM Work Phone: [facility] 06-06-2024 07:58-0400 Systolic blood pressure 105 mm[Hg] Eladio Sancho Jr., DPM Work Phone: [facility] 02-29-2024 07:59-0400 Body temperature 97.2 [degF] Eladio Sancho Jr., DPM Work Phone: [facility] 02-29-2024 07:59-0400 Diastolic blood pressure 80 mm[Hg] Eladio Sancho Jr., DPM Work Phone: [facility] 02-29-2024 07:59-0400 Heart rate 64 /min Eladio Sancho Jr., DPM Work Phone: [facility] 02-29-2024 07:59-0400 Systolic blood pressure 144 mm[Hg] Eladio Sancho Jr., DPM Work Phone: [facility] 02-12-2024 09:13-0400 Body mass index (BMI) [Ratio] 24.29 kg/m2 Sage Kwon MD Work Phone: [facility] 02-12-2024 09:13-0400 Body weight 68.27 kg Sage Kwon MD Work Phone: [facility] 02-12-2024 09:13-0400 Diastolic blood pressure 73 mm[Hg] Sage Kwon MD Work Phone: [facility] 02-12-2024 09:13-0400 Heart rate 70 /min Sage Kwon MD Work Phone: [facility] 02-12-2024 09:13-0400 Respiratory rate 16 /min Sage Kwon MD Work Phone: [facility] 02-12-2024 09:13-0400 SaO2% (BldA) [Mass fraction] 97 % Sage Kwon MD Work Phone: [facility] 02-12-2024 09:13-0400 Systolic blood pressure 138 mm[Hg] Sage Kwon MD Work Phone: [facility] 12-07-2023 13:00-0500 Diastolic blood pressure 58 mm[Hg] Celso Cabezas DO Work Phone: [facility] 12-07-2023 13:00-0500 Heart rate 73 /min Celso Cabezas DO Work Phone: [facility] 12-07-2023 13:00-0500 Respiratory rate 18 /min Celso Lemasters DO Work Phone: [facility] 12-07-2023 13:00-0500 SaO2% (BldA) [Mass fraction] 97 % Celso Cabezas DO Work Phone: [facility] 12-07-2023 13:00-0500 Systolic blood pressure 118 mm[Hg] Celso Lemjim DO Work Phone: [facility] 12-07-2023 10:01-0500 Body height 167.6 cm Celso Cabezas DO Work Phone: [facility] 12-07-2023 10:01-0500 Body mass index (BMI) [Ratio] 29.05 kg/m2 Celso Cabezas DO Work Phone: [facility] 12-07-2023 10:01-0500 Body temperature 96.91 [degF] Celso Davin DO Work Phone: [facility] 12-07-2023 10:01-0500 Body weight 81.65 kg Celso Cabezas DO Work Phone: [facility] 11-30-2023 07:59-0500 Body temperature 98.29 [degF] Eladio Kingsley Jr., DPM Work Phone: [facility] 11-30-2023 07:59-0500 Diastolic blood pressure 73 mm[Hg] Eladio Kingsley Jr., DPM Work Phone: [facility] 11-30-2023 07:59-0500 Heart rate 68 /min Eladio Kingsley Jr., DPM Work Phone: [facility] 11-30-2023 07:59-0500 Systolic blood pressure 125 mm[Hg] Eladio Kingsley Jr., DPM Work Phone: [facility] 11-15-2023 19:43-0500 Diastolic blood pressure 60 mm[Hg] Celso Hawkjim DO Work Phone: [facility] 11-15-2023 19:43-0500 Heart rate 70 /min Celso Davin DO Work Phone: [facility] 11-15-2023 19:43-0500 Respiratory rate 16 /min Celso Davin DO Work Phone: [facility] 11-15-2023 19:43-0500 SaO2% (BldA) [Mass fraction] 98 % Celso Davin DO Work Phone: [facility] 11-15-2023 19:43-0500 Systolic blood pressure 157 mm[Hg] Celso Cabzeas DO Work Phone: [facility] 11-15-2023 15:58-0500 Body height 167.6 cm Celso Cabezas DO Work Phone: [facility] 11-15-2023 15:58-0500 Body mass index (BMI) [Ratio] 25.18 kg/m2 Celso Cabezas DO Work Phone: [facility] 11-15-2023 15:58-0500 Body weight 70.76 kg Celso Cabezas DO Work Phone: [facility] 11-15-2023 15:56-0500 Body temperature 97.39 [degF] Celso Cabezas DO Work Phone: [facility] 11-15-2023 08:13-0500 Body height 167.6 cm Daysi Castorenaae DO Work Phone: [facility] 11-15-2023 08:13-0500 Body mass index (BMI) [Ratio] 25.24 kg/m2 Daysi Thomae DO Work Phone: [facility] 11-15-2023 08:13-0500 Body weight 70.94 kg Daysi Thomae DO Work Phone: [facility] 11-11-2023 22:23-0500 Diastolic blood pressure 69 mm[Hg] Sai Myers MD Work Phone: [facility] 11-11-2023 22:23-0500 Heart rate 88 /min Sai Myers MD Work Phone: [facility] 11-11-2023 22:23-0500 Respiratory rate 16 /min Sai Myers MD Work Phone: [facility] 11-11-2023 22:23-0500 Systolic blood pressure 162 mm[Hg] Sai Myers MD Work Phone: [facility] 11-11-2023 20:45-0500 Body height 167.6 cm Sai Myers MD Work Phone: [facility] 11-11-2023 20:45-0500 Body mass index (BMI) [Ratio] 25.82 kg/m2 Sai Myers MD Work Phone: [facility] 11-11-2023 20:45-0500 Body temperature 97.7 [degF] Sai Myers MD Work Phone: [facility] 11-11-2023 20:45-0500 Body weight 72.58 kg Sai Myers MD Work Phone: [facility] 11-11-2023 20:45-0500 SaO2% (BldA) [Mass fraction] 97 % Sai Myers MD Work Phone: [facility] 11-05-2023 08:06-0500 Body height 167.6 cm Don Barrera MD Work Phone: [facility] 11-05-2023 08:06-0500 Body mass index (BMI) [Ratio] 25.24 kg/m2 Don Barrera MD Work Phone: [facility] 11-05-2023 08:06-0500 Body weight 70.94 kg Don Barrera MD Work Phone: [facility] 11-05-2023 08:06-0500 Diastolic blood pressure 62 mm[Hg] Don Barrera MD Work Phone: [facility] 11-05-2023 08:06-0500 Heart rate 65 /min Don Barrera MD Work Phone: [facility] 11-05-2023 08:06-0500 SaO2% (BldA) [Mass fraction] 99 % Don Barrera MD Work Phone: [facility] 11-05-2023 08:06-0500 Systolic blood pressure 130 mm[Hg] Don Barrera MD Work Phone: [phone] [place] [address] 11-01-2023 13:09-0500 Body height 167.6 cm Daysi Arenas DO Work Phone: [facility] 11-01-2023 13:09-0500 Body mass index (BMI) [Ratio] 25.6 kg/m2 Daysi Arenas DO Work Phone: [facility] 11-01-2023 13:09-0500 Body weight 71.94 kg Daysi Arenas DO Work Phone: [facility] 10-31-2023 07:58-0500 Body temperature 97.9 [degF] Eladio Sancho Jr., DPM Work Phone: [facility] 10-31-2023 07:58-0500 Diastolic blood pressure 69 mm[Hg] Eladio Sancho Jr., DPM Work Phone: [facility] 10-31-2023 07:58-0500 Heart rate 67 /min Eladio Sancho Jr., DPM Work Phone: [facility] 10-31-2023 07:58-0500 Systolic blood pressure 116 mm[Hg] Eladio Sancho Jr., DPM Work Phone: [facility] 10-24-2023 08:43-0500 Diastolic blood pressure 77 mm[Hg] Eladio Sancho Jr., DPM Work Phone: [facility] 10-24-2023 08:43-0500 Heart rate 58 /min Eladio Sancho Jr., DPM Work Phone: [facility] 10-24-2023 08:43-0500 Systolic blood pressure 148 mm[Hg] Eladio Sancho Jr., DPM Work Phone: [facility] 10-24-2023 08:27-0500 Body temperature 98.2 [degF] Eladio Sancho Jr., DPM Work Phone: [facility] 10-12-2023 08:07-0500 Diastolic blood pressure 75 mm[Hg] Eladio Sancho Jr., DPM Work Phone: [facility] 10-12-2023 08:07-0500 Heart rate 65 /min Eladio Kingsley ., DPM Work Phone: [facility] 10-12-2023 08:07-0500 Systolic blood pressure 148 mm[Hg] Eladio Hallyesi Mendoza., DPM Work Phone: [facility] 10-12-2023 08:01-0500 Body temperature 98.2 [degF] Eladio Kingsley Jr., DPM Work Phone: [facility] 10-06-2023 12:15-0500 Body height 167.6 cm Clark Nabeel PA-C Work Phone: [facility] 10-06-2023 12:15-0500 Body mass index (BMI) [Ratio] 25.66 kg/m2 Clark Nabeel PA-C Work Phone: [facility] 10-06-2023 12:15-0500 Body temperature 97.39 [degF] Clark Nabeel PA-C Work Phone: [facility] 10-06-2023 12:15-0500 Body weight 72.12 kg Clark Nabeel PA-C Work Phone: [facility] 10-06-2023 12:15-0500 Diastolic blood pressure 83 mm[Hg] Clark Nabeel PA-C Work Phone: [facility] 10-06-2023 12:15-0500 Heart rate 72 /min Clark Nabeel PA-C Work Phone: [facility] 10-06-2023 12:15-0500 Respiratory rate 14 /min Clark Nabeel PA-C Work Phone: [facility] 10-06-2023 12:15-0500 SaO2% (BldA) [Mass fraction] 96 % Clark Nabeel PA-C Work Phone: [facility] 10-06-2023 12:15-0500 Systolic blood pressure 173 mm[Hg] Clark Lees PA-C Work Phone: [facility] 09-28-2023 14:21-0500 Body height 167.6 cm Don Barrera MD Work Phone: [facility] 09-28-2023 14:21-0500 Body mass index (BMI) [Ratio] 25.66 kg/m2 Don Barrera MD Work Phone: [facility] 09-28-2023 14:21-0500 Body weight 72.12 kg Don Barrera MD Work Phone: [facility] 09-28-2023 14:21-0500 Diastolic blood pressure 66 mm[Hg] Dno Barrera MD Work Phone: [facility] 09-28-2023 14:21-0500 Heart rate 78 /min Don Barrera MD Work Phone: [facility] 09-28-2023 14:21-0500 SaO2% (BldA) [Mass fraction] 96 % Don Barrera MD Work Phone: [facility] 09-28-2023 14:21-0500 Systolic blood pressure 120 mm[Hg] Don Barrera MD Work Phone: [facility] 07-23-2023 01:01-0400 Diastolic blood pressure 76 mm[Hg] Sai Myers MD Work Phone: [facility] 07-23-2023 01:01-0400 Heart rate 60 /min Sai Myers MD Work Phone: [facility] 07-23-2023 01:01-0400 Respiratory rate 16 /min Sai Myers MD Work Phone: [facility] 07-23-2023 01:01-0400 SaO2% (BldA) [Mass fraction] 94 % Sai Myers MD Work Phone: [facility] 07-23-2023 01:01-0400 Systolic blood pressure 146 mm[Hg] Sai Myers MD Work Phone: [facility] 07-22-2023 21:49-0400 Body height 167.6 cm Sai Myers MD Work Phone: [facility] 07-22-2023 21:49-0400 Body mass index (BMI) [Ratio] 25.82 kg/m2 Sai Myers MD Work Phone: [facility] 07-22-2023 21:49-0400 Body temperature 97.7 [degF] Sai Myers MD Work Phone: [facility] 07-22-2023 21:49-0400 Body weight 72.58 kg Sai Myers MD Work Phone: [facility] 06-21-2023 08:29-0400 Body height 165.1 cm Don Barrera Work Phone: JS-Yketxwabkx-Sayj [address] Work Phone: 06-21-2023 08:29-0400 Body mass index (BMI) [Ratio] 26.5 kg/m2 Don Barrera Work Phone: OR-Xtbknbpcos-Qpnp [address] Work Phone: 06-21-2023 08:29-0400 Body surface area Derived from formula 1.8 m2 Don Barrera Work Phone: PB-Dwartykqmp-Txnh [address] Work Phone: 06-21-2023 08:29-0400 Body weight 72.24 kg Don Barrera Work Phone: KF-Citircuads-Hkdd [address] Work Phone: 06-21-2023 08:29-0400 Diastolic blood pressure 60 mm[Hg] Don Barrera Work Phone: BS-Donlkdldsz-Gigo [address] Work Phone: 06-21-2023 08:29-0400 Heart rate 91 /min Don Barrera Work Phone: BX-Ibzlmdgcbi-Xdsy [address] Work Phone: 06-21-2023 08:29-0400 SaO2% (BldA) [Mass fraction] 96 % Don Barrera Work Phone: XX-Phrnbquvqf-Fheq [address] Work Phone: 06-21-2023 08:29-0400 Systolic blood pressure 118 mm[Hg] Don Barrera Work Phone: TU-Rpqzktjwfz-Eveq [address] Work Phone: 05-31-2023 14:45-0400 Body height 165.1 cm Don Barrera MD Work Phone: [facility] 05-31-2023 14:45-0400 Body mass index (BMI) [Ratio] 26.43 kg/m2 Don Barrera MD Work Phone: [facility] 05-31-2023 14:45-0400 Body weight 72.03 kg Don Barrera MD Work Phone: [facility] 05-31-2023 14:45-0400 Diastolic blood pressure 60 mm[Hg] Don Barrera MD Work Phone: [facility] 05-31-2023 14:45-0400 Heart rate 64 /min Don Barrera MD Work Phone: [facility] 05-31-2023 14:45-0400 SaO2% (BldA) [Mass fraction] 95 % Don Barrera MD Work Phone: [facility] 05-31-2023 14:45-0400 Systolic blood pressure 120 mm[Hg] Don Barrera MD Work Phone: [facility] 05-04-2023 08:06-0400 Body height 165.1 cm Don Barrera MD Work Phone: [facility] 05-04-2023 08:06-0400 Body mass index (BMI) [Ratio] 26.24 kg/m2 Don Barrera MD Work Phone: [facility] 05-04-2023 08:06-0400 Body weight 71.53 kg Don Barrera MD Work Phone: [facility] 05-04-2023 08:06-0400 Diastolic blood pressure 60 mm[Hg] Don Barrera MD Work Phone: [facility] 05-04-2023 08:06-0400 Heart rate 61 /min Don Barrera MD Work Phone: [facility] 05-04-2023 08:06-0400 SaO2% (BldA) [Mass fraction] 98 % Don Barrera MD Work Phone: [facility] 05-04-2023 08:06-0400 Systolic blood pressure 116 mm[Hg] Don Barrera MD Work Phone: [facility] 02-09-2023 08:08-0400 Diastolic blood pressure 77 mm[Hg] Eladio Kingsley Jr. DPM Work Phone: [facility] 02-09-2023 08:08-0400 Heart rate 57 /min Eladio Kingsley Jr. DPM Work Phone: [facility] 02-09-2023 08:08-0400 Systolic blood pressure 147 mm[Hg] Eladio Kingsley Jr. DPM Work Phone: [facility] 02-09-2023 08:05-0400 Body temperature 97.3 [degF] Eladio Kingsley Jr. DPM Work Phone: [facility] 11-17-2022 08:03-0500 Body temperature 97 [degF] Eladio Kingsley Jr., DPM Work Phone: [facility] 11-17-2022 08:03-0500 Diastolic blood pressure 83 mm[Hg] Eladio Kingsley Jr., DPM Work Phone: [facility] 11-17-2022 08:03-0500 Heart rate 65 /min Eladio Kingsley Jr., DPM Work Phone: [facility] 11-17-2022 08:03-0500 Systolic blood pressure 130 mm[Hg] Eladio Kingsley Jr., DPM Work Phone: [facility] 10-27-2022 08:41-0500 Body height 165.1 cm Alokailyndequan Baptiste Barrera Work Phone: [facility] Work Phone: 10-27-2022 08:41-0500 Body mass index (BMI) [Ratio] 26.79 kg/m2 Alokbrayden Emile Barrera Work Phone: [facility] Work Phone: 10-27-2022 08:41-0500 Body surface area Derived from formula 1.8 m2 Alokailyndequan Baptiste Barrera Work Phone: [facility] Work Phone: 10-27-2022 08:41-0500 Body weight 73.03 kg Eligiodequan Emile Barrera Work Phone: [facility] Work Phone: 10-27-2022 08:41-0500 Diastolic blood pressure 66 mm[Hg] Don Barrera Work Phone: [facility] Work Phone: 10-27-2022 08:41-0500 Heart rate 59 /min Don Barrera Work Phone: [facility] Work Phone: 10-27-2022 08:41-0500 SaO2% (BldA) [Mass fraction] 99 % Don Sehltond Work Phone: [facility] [employer] [facility] Work Phone: 10-27-2022 08:41-0500 Systolic blood pressure 132 mm[Hg] Don Baptiste Barrera Work Phone: [facility] Work Phone: 09-23-2022 10:31-0500 Body height 168 cm Don Sheltond Other Phone: [facility] 09-23-2022 10:31-0500 Body temperature 98.24 [degF] Don Sheltond Other Phone: [facility] 09-23-2022 10:31-0500 Diastolic blood pressure 85 mm[Hg] Alokophdequan Sheltond Other Phone: [facility] 09-23-2022 10:31-0500 Heart rate 80 /min Christopher Barrera Other Phone: [facility] 09-23-2022 10:31-0500 Respiratory rate 16 /min Don Sheltond Other Phone: [facility] 09-23-2022 10:31-0500 SaO2% (BldA) [Mass fraction] 96 % Eligiodequan Barrera Other Phone: [facility] 09-23-2022 10:31-0500 Systolic blood pressure 153 mm[Hg] Christopher Barrera Other Phone: [facility] 08-18-2022 07:57-0400 Body temperature 97 [degF] Eladio Kingsley Jr. DPM Work Phone: [facility] 08-18-2022 07:57-0400 Diastolic blood pressure 75 mm[Hg] Eladio Kingsley Jr. DPM Work Phone: [facility] 08-18-2022 07:57-0400 Heart rate 53 /min Eladio Sancho Ibarra, DPM Work Phone: [facility] 08-18-2022 07:57-0400 Systolic blood pressure 131 mm[Hg] Eladio Sancho Ibarra, DPM Work Phone: [facility] 06-15-2022 08:23-0400 Body height 165.1 cm Don Barrera Work Phone: GV-Nkrestvzhz-Vlad [address] Work Phone: 06-15-2022 08:23-0400 Body mass index (BMI) [Ratio] 27.22 kg/m2 Don Barrera Work Phone: VZ-Szyvjnbbop-Eyff [address] Work Phone: 06-15-2022 08:23-0400 Body surface area Derived from formula 1.82 m2 Don Barrera Work Phone: HD-Fuurvshbco-Vycr [address] Work Phone: 06-15-2022 08:23-0400 Body weight 74.21 kg Don Barrera Work Phone: OZ-Szyrzdeiix-Nkpy [address] Work Phone: 06-15-2022 08:23-0400 Diastolic blood pressure 80 mm[Hg] Don Barrera Work Phone: HT-Iammrwpkxf-Gtqi [address] Work Phone: 06-15-2022 08:23-0400 Heart rate 79 /min Don Barrera Work Phone: MF-Zwpoqvusep-Imlt [address] Work Phone: 06-15-2022 08:23-0400 SaO2% (BldA) [Mass fraction] 98 % Don Barrera Work Phone: LN-Oyghkedgvt-Emem [address] Work Phone: 06-15-2022 08:23-0400 Systolic blood pressure 138 mm[Hg] Don Barrera Work Phone: JA-Qvvfrokwpb-Pqje [address] Work Phone: 05-19-2022 08:10-0400 Body temperature 97.3 [degF] Eladio Kingsley Jr., DPM Work Phone: [facility] 05-19-2022 08:10-0400 Diastolic blood pressure 66 mm[Hg] Eladio Kingsley Jr., DPM Work Phone: [facility] 05-19-2022 08:10-0400 Heart rate 70 /min Eladio Kingsley Jr., DPM Work Phone: [facility] 05-19-2022 08:10-0400 Systolic blood pressure 110 mm[Hg] Eladio Kingsley Jr., DPM Work Phone: [facility] 05-17-2022 13:04-0400 Body mass index (BMI) [Ratio] 27.46 kg/m2 Don Barrera Work Phone: UH-Snuzrmndfx-Kosz [address] Work Phone: 05-17-2022 13:04-0400 Body surface area Derived from formula 1.82 m2 Don Barrera Work Phone: SZ-Uhoouutplw-Jeiz [address] Work Phone: 05-17-2022 13:04-0400 Body weight 74.84 kg Don Barrera Work Phone: YP-Updvgmmyqr-Gadh [address] Work Phone: 05-17-2022 13:04-0400 Diastolic blood pressure 89 mm[Hg] Don Barrera Work Phone: YX-Wcxxfryozv-Oipk [address] Work Phone: 05-17-2022 13:04-0400 Heart rate 64 /min Don Barrera Work Phone: WD-Wxomotvszn-Nuuv [address] Work Phone: 05-17-2022 13:04-0400 Systolic blood pressure 137 mm[Hg] Don Barrera Work Phone: SG-Nbdhjpovye-Ncts [address] Work Phone: 04-26-2022 08:24-0400 Body height 165.1 cm Don Barrera Work Phone: [facility] Work Phone: 04-26-2022 08:24-0400 Body mass index (BMI) [Ratio] 27.83 kg/m2 Don Barrera Work Phone: [facility] Work Phone: 04-26-2022 08:24-0400 Body surface area Derived from formula 1.83 m2 Don Barrera Work Phone: [facility] Work Phone: 04-26-2022 08:24-0400 Body weight 75.86 kg Dno Barrera Work Phone: [facility] Work Phone: 04-26-2022 08:24-0400 Diastolic blood pressure 70 mm[Hg] Don Barrera Work Phone: [facility] Work Phone: 04-26-2022 08:24-0400 Heart rate 70 /min Don Barrera Work Phone: [facility] Work Phone: 04-26-2022 08:24-0400 SaO2% (BldA) [Mass fraction] 96 % Don Barrera Work Phone: [facility] Work Phone: 04-26-2022 08:24-0400 Systolic blood pressure 140 mm[Hg] Don Barrera Work Phone: [facility] Work Phone: 02-27-2022 11:02-0400 Body height 165.1 cm Don Barrera Work Phone: [facility] Work Phone: 02-27-2022 11:02-0400 Body mass index (BMI) [Ratio] 26.96 kg/m2 Don Barrera Work Phone: [facility] Work Phone: 02-27-2022 11:02-0400 Body surface area Derived from formula 1.81 m2 Don Barrera Work Phone: [facility] [employer] [facility] Work Phone: 02-27-2022 11:02-0400 Body weight 73.48 kg Don Barrera Work Phone: [facility] [employer] [facility] Work Phone: 02-27-2022 11:02-0400 Diastolic blood pressure 60 mm[Hg] Don Barrera Work Phone: [facility] [employer] [facility] Work Phone: 02-27-2022 11:02-0400 Heart rate 64 /min Don Barrera Work Phone: [facility] Work Phone: 02-27-2022 11:02-0400 SaO2% (BldA) [Mass fraction] 97 % Don Barrera Work Phone: [facility] Work Phone: 02-27-2022 11:02-0400 Systolic blood pressure 110 mm[Hg] Alokbrayden Sheltond Work Phone: [facility] Work Phone: 02-15-2022 09:34-0400 Body temperature 98.1 [degF] Eladio Kingsley Jr., DPM Work Phone: [facility] 02-15-2022 09:34-0400 Diastolic blood pressure 85 mm[Hg] Eladio Kingsley Jr., DPM Work Phone: [facility] 02-15-2022 09:34-0400 Heart rate 65 /min Eladio Kingsley Jr., DPM Work Phone: [facility] 02-15-2022 09:34-0400 Systolic blood pressure 131 mm[Hg] Eladio Kingsley Jr., DPM Work Phone: [facility] 11-15-2021 11:23-0500 Body mass index (BMI) [Ratio] 27.19 kg/m2 Don Barrera Work Phone: [facility] Work Phone: 11-15-2021 11:23-0500 Body surface area Derived from formula 1.82 m2 Don Barrera Work Phone: [facility] Work Phone: 11-15-2021 11:23-0500 Body temperature 97.3 [degF] Don Barrera Work Phone: [facility] Work Phone: 11-15-2021 11:23-0500 Body weight 74.12 kg Don Barrera Work Phone: [facility] Work Phone: 11-15-2021 11:23-0500 Diastolic blood pressure 67 mm[Hg] Don Barrera Work Phone: [facility] Work Phone: 11-15-2021 11:23-0500 Heart rate 69 /min Eligiodequan Emile Barrera Work Phone: [facility] Work Phone: 11-15-2021 11:23-0500 Respiratory rate 16 /min Alokailyndequan Barrera Work Phone: [facility] Work Phone: 11-15-2021 11:23-0500 Systolic blood pressure 111 mm[Hg] Don Barrera Work Phone: [facility] Work Phone: 11-04-2021 08:03-0500 Body temperature 98.1 [degF] Eladio Kingsley Jr., DPM Work Phone: [facility] 11-04-2021 08:03-0500 Diastolic blood pressure 73 mm[Hg] Eladio Kingsley Jr., DPM Work Phone: [facility] 11-04-2021 08:03-0500 Heart rate 95 /min Eladio Kingsley Jr., DPM Work Phone: [facility] 11-04-2021 08:03-0500 Systolic blood pressure 124 mm[Hg] Eladio Kingsley Jr., DPM Work Phone: [facility] 10-26-2021 08:10-0500 Body height 165.1 cm Don Barrera Work Phone: [facility] Work Phone: 10-26-2021 08:10-0500 Body mass index (BMI) [Ratio] 26.86 kg/m2 Don Barrera Work Phone: [facility] Work Phone: 10-26-2021 08:10-0500 Body surface area Derived from formula 1.81 m2 Don Barrera Work Phone: [facility] Work Phone: 10-26-2021 08:10-0500 Body temperature 97.3 [degF] Don Barrera Work Phone: [facility] Work Phone: 10-26-2021 08:10-0500 Body weight 73.23 kg Don Barrera Work Phone: [facility] Work Phone: 10-26-2021 08:10-0500 Diastolic blood pressure 80 mm[Hg] Don Barrera Work Phone: [facility] Work Phone: 10-26-2021 08:10-0500 Heart rate 72 /min Don Barrera Work Phone: [facility] Work Phone: 10-26-2021 08:10-0500 SaO2% (BldA) [Mass fraction] 98 % Don Barrera Work Phone: [facility] Work Phone: 10-26-2021 08:10-0500 Systolic blood pressure 130 mm[Hg] Don Barrera Work Phone: [facility] Work Phone: 08-30-2021 12:06-0500 Body mass index (BMI) [Ratio] 27.29 kg/m2 Don Barrera Work Phone: [facility] Work Phone: 08-30-2021 12:06-0500 Body surface area Derived from formula 1.82 m2 Don Barrera Work Phone: [facility] Work Phone: 08-30-2021 12:06-0500 Body temperature 98 [degF] Don Barrera Work Phone: [facility] Work Phone: 08-30-2021 12:06-0500 Body weight 74.39 kg Don Barrera Work Phone: [facility] Work Phone: 08-30-2021 12:06-0500 Diastolic blood pressure 76 mm[Hg] Don Barrera Work Phone: [facility] Work Phone: 08-30-2021 12:06-0500 Heart rate 69 /min Don Barrera Work Phone: [facility] Work Phone: 08-30-2021 12:06-0500 Respiratory rate 14 /min Don Barrera Work Phone: [facility] Work Phone: 08-30-2021 12:06-0500 Systolic blood pressure 119 mm[Hg] Don Barrera Work Phone: [facility] Work Phone: 08-19-2021 11:26-0400 Body height 165.1 cm Don Barrera Work Phone: [facility] Work Phone: 08-19-2021 11:26-0400 Body mass index (BMI) [Ratio] 27.36 kg/m2 Don Barrera Work Phone: [facility] Work Phone: 08-19-2021 11:26-0400 Body surface area Derived from formula 1.82 m2 Don Barrera Work Phone: [facility] Work Phone: 08-19-2021 11:26-0400 Body temperature 97.1 [degF] Don Barrera Work Phone: [facility] Work Phone: 08-19-2021 11:26-0400 Body weight 74.59 kg Don Barrera Work Phone: [facility] Work Phone: 08-19-2021 11:26-0400 Diastolic blood pressure 66 mm[Hg] Don Barrera Work Phone: [facility] Work Phone: 08-19-2021 11:26-0400 Heart rate 63 /min Don Barrera Work Phone: [facility] Work Phone: 08-19-2021 11:26-0400 SaO2% (BldA) [Mass fraction] 97 % Don Barrera Work Phone: [facility] Work Phone: 08-19-2021 11:26-0400 Systolic blood pressure 110 mm[Hg] Don Barrera Work Phone: [facility] Work Phone: 05-20-2021 12:55-0400 Body height 167.6 cm Vijay Viveros MD Work Phone: [facility] 05-20-2021 12:55-0400 Body mass index (BMI) [Ratio] 27.12 kg/m2 Vijay Viveros MD Work Phone: [facility] 05-20-2021 12:55-0400 Body weight 76.2 kg Vijay Viveros MD Work Phone: [facility] 05-18-2021 13:03-0400 Body height 165.1 cm Don Barrera Work Phone: XU-Vkiojml-Fkizopv Work Phone: 05-18-2021 13:03-0400 Body mass index (BMI) [Ratio] 28.12 kg/m2 Don Barrera Work Phone: DG-Qbywexs-Hpadhzz Work Phone: 05-18-2021 13:03-0400 Body surface area Derived from formula 1.84 m2 Don Barrera Work Phone: RP-Bollmbh-Txsgkgf Work Phone: 05-18-2021 13:03-0400 Body weight 76.66 kg Don Barrera Work Phone: ML-Solnzvq-Hmbuouw Work Phone: 05-18-2021 13:03-0400 Diastolic blood pressure 62 mm[Hg] Don Barrera Work Phone: WO-Hkkmray-Ubowyxo Work Phone: 05-18-2021 13:03-0400 Heart rate 64 /min Don Barrera Work Phone: AA-Okuuist-Lrosbwe Work Phone: 05-18-2021 13:03-0400 Systolic blood pressure 120 mm[Hg] Don Barrera Work Phone: JS-Mamnexq-Mlzzxtx Work Phone: 05-13-2021 08:03-0400 Body height 167.6 cm Eladio Kingsley Jr. DPM Work Phone: [facility] 05-13-2021 08:03-0400 Body mass index (BMI) [Ratio] 27.12 kg/m2 Eladio Kingsley Jr. DPM Work Phone: [facility] 05-13-2021 08:03-0400 Body temperature 97.7 [degF] Eladio Kingsley Jr. DPM Work Phone: [facility] 05-13-2021 08:03-0400 Body weight 76.2 kg Eladio Kingsley Jr. DPM Work Phone: [facility] 05-13-2021 08:03-0400 Diastolic blood pressure 64 mm[Hg] Eladio Hallyesi Mendoza., DPM Work Phone: [facility] 05-13-2021 08:03-0400 Heart rate 86 /min Eladio Acevedoboni Mendoza., DPM Work Phone: [facility] 05-13-2021 08:03-0400 Systolic blood pressure 121 mm[Hg] Eladio Hallyesi Mendoza., DPM Work Phone: [facility] 05-09-2021 10:04-0400 Body height 167.6 cm Heather Paredes MD Work Phone: [facility] 05-09-2021 10:04-0400 Body mass index (BMI) [Ratio] 27.12 kg/m2 Heather Paredes MD Work Phone: [facility] 05-09-2021 10:04-0400 Body weight 76.2 kg Heather Paredes MD Work Phone: [facility] 05-09-2021 10:04-0400 Diastolic blood pressure 83 mm[Hg] Heather Paredes MD Work Phone: [facility] 05-09-2021 10:04-0400 Heart rate 53 /min Heather Paredes MD Work Phone: [facility] 05-09-2021 10:04-0400 SaO2% (BldA) [Mass fraction] 94 % Heather Paredes MD Work Phone: [facility] 05-09-2021 10:04-0400 Systolic blood pressure 143 mm[Hg] Heather Paredes MD Work Phone: [facility] 04-20-2021 09:50-0400 Body height 165.1 cm Don Barrera Work Phone: [facility] Work Phone: 04-20-2021 09:50-0400 Body mass index (BMI) [Ratio] 28.04 kg/m2 Don Barrera Work Phone: [facility] Work Phone: 04-20-2021 09:50-0400 Body surface area Derived from formula 1.84 m2 Don Barrera Work Phone: [facility] Work Phone: 04-20-2021 09:50-0400 Body temperature 97.3 [degF] Don Barrera Work Phone: [facility] Work Phone: 04-20-2021 09:50-0400 Body weight 76.43 kg Don Barrera Work Phone: [facility] Work Phone: 04-20-2021 09:50-0400 Diastolic blood pressure 64 mm[Hg] Don Barrera Work Phone: [facility] Work Phone: 04-20-2021 09:50-0400 Heart rate 57 /min Don Barrera Work Phone: [facility] [employer] [facility] Work Phone: 04-20-2021 09:50-0400 SaO2% (BldA) [Mass fraction] 96 % Don Barrera Work Phone: [facility] [employer] [facility] Work Phone: 04-20-2021 09:50-0400 Systolic blood pressure 120 mm[Hg] Alokbrayden Sheltond Work Phone: [facility] Work Phone: 02-11-2021 21:23-0400 Body height 167.6 cm Eladio Kingsley Jr., DPM Work Phone: [facility] 02-11-2021 21:23-0400 Body mass index (BMI) [Ratio] 27.12 kg/m2 SYMONE Garcia Jr.M Work Phone: [facility] 02-11-2021 21:23-0400 Body weight 76.2 kg Eladio Kingsley Jr., DPM Work Phone: [facility] 11-12-2020 21:23-0500 Diastolic blood pressure 66 mm[Hg] Eladio Kingsley Jr., DPM Work Phone: [facility] 11-12-2020 21:23-0500 Systolic blood pressure 117 mm[Hg] Eladio Kingsley Jr., DPM Work Phone: [facility] 04-07-2020 10:11-0400 BMI (Body Mass Index) 24.3 kg/m2 Don Barrera [facility] Work Phone: 04-07-2020 10:11-0400 Body Temperature 97.8 [degF] Don Barrera [facility] Work Phone: 04-07-2020 10:11-0400 Body weight 66.23 kg Don Barrera [facility] Work Phone: 04-07-2020 10:11-0400 BP Diastolic 64 mm[Hg] Don Barrera [facility] Work Phone: 04-07-2020 10:11-0400 BP Systolic 108 mm[Hg] Don Barrera [facility] Work Phone: 04-07-2020 10:11-0400 BSA (Body Surface Area) 1.73 m2 Don Barrera [facility] Work Phone: 04-07-2020 10:11-0400 Height 165.1 cm Don Barrera [facility] Work Phone: 04-07-2020 10:11-0400 Pulse (Heart Rate) 72 /min Don Barrera [facility] Work Phone: 04-07-2020 10:05-0400 BMI (Body Mass Index) 27.62 kg/m2 Don Barrera [facility] Work Phone: 04-07-2020 10:05-0400 Body Temperature 97.3 [degF] Don Barrera [facility] Work Phone: 04-07-2020 10:05-0400 Body weight 75.3 kg Don Barrera [facility] Work Phone: 04-07-2020 10:05-0400 BP Diastolic 64 mm[Hg] Don Barrera [facility] Work Phone: Comment on above: Location: [facility]04-07-2020 10:05-0400 BP Systolic 108 mm[Hg] Don Barrera [facility] Work Phone: Comment on above: Location: [facility]; 04-07-2020 10:05-0400 BSA (Body Surface Area) 1.83 m2 Don Barrera [facility] Work Phone: 04-07-2020 10:05-0400 Height 165.1 cm oDn Barrera [facility] Work Phone: 04-07-2020 10:05-0400 Pulse (Heart Rate) 72 /min Don Barrera [facility] Work Phone: 03-08-2020 15:38-0400 Diastolic blood pressure 72 ml Heather Paredes [facility] 03-08-2020 15:38-0400 Systolic blood pressure 23 ml Heather Elin [facility] 03-08-2020 09:51-0400 BMI (Body Mass Index) 26.24 kg/m2 Heather Elin [facility] 03-08-2020 09:51-0400 Body weight 76 kg Heather Paredes [facility] 03-08-2020 09:51-0400 BP Diastolic 73 mm[Hg] Heather Paredes [facility] 03-08-2020 09:51-0400 BP Systolic 138 mm[Hg] Heather Erazoishman [facility] 03-08-2020 09:51-0400 Height 170.2 cm Heather Paredes [facility] 03-08-2020 09:51-0400 Pulse (Heart Rate) 66 /min Heather Paredes [facility] 11-12-2019 16:51-0500 BMI (Body Mass Index) 26.19 kg/m2 Robb Colindres II [facility]Rlocmbo-Ejthqpz Work Phone: 11-12-2019 16:51-0500 Body weight 73.03 kg Robb Colindres II YH-Hzbnrpe-Ophhb nd Work Phone: 11-12-2019 16:51-0500 BP Diastolic 68 mm[Hg] Robb Colindres II IW-Eihameq-Lsysy nd Work Phone: 11-12-2019 16:51-0500 BP Systolic 122 mm[Hg] Robb Colindres II SZ-Qkwjrly-Wgokc nd Work Phone: 11-12-2019 16:51-0500 BSA (Body Surface Area) 1.82 m2 Robb Colindres II GY-Gpbzzha-Ajejvtb Work Phone: 11-12-2019 16:51-0500 Height 167 cm Robb Colindres II MV-Pspkdzq-Wmsuw nd Work Phone: 11-12-2019 16:51-0500 Pulse (Heart Rate) 64 /min Robb Colindres II IR-Mrloiip-Tw [place]land Work Phone: 10-08-2019 13:03-0500 BMI (Body Mass Index) 27.85 kg/m2 Robb Colindres II NQ-Eqxrtnk-Nnkhrvq Work Phone: 10-08-2019 13:03-0500 Body weight 75.92 kg Robb Colindres II BO-Xgcdnfa-Qpxgk nd Work Phone: 10-08-2019 13:03-0500 BP Diastolic 81 mm[Hg] Robb Colindres II WD-Uwnrxjc-Ekvyo nd Work Phone: 10-08-2019 13:03-0500 BP Systolic 146 mm[Hg] Robb Colindres II SD-Ysmftds-Gvguz nd Work Phone: 10-08-2019 13:03-0500 BSA (Body Surface Area) 1.83 m2 Robb Colindres II QS-Kabbcqw-Dgywclu Work Phone: 10-08-2019 13:03-0500 Height 165.1 cm Robb Colindres II SF-Mqrccpt-Al[place] nd Work Phone: 10-08-2019 13:03-0500 Pulse (Heart Rate) 69 /min Robb Colindres II TU-Usbzgjj-[place] Work Phone: 10-03-2019 10:09-0500 BMI (Body Mass Index) 27.33 kg/m2 Don Barrera [facility] Work Phone: 10-03-2019 10:09-0500 Body weight 74.5 kg Don Barrera [facility] Work Phone: 10-03-2019 10:09-0500 BP Diastolic 64 mm[Hg] Don Barrera [facility] Work Phone: Comment on above: Location: E; 10-03-2019 10:09-0500 BP Systolic 122 mm[Hg] Don Barrera [facility] Work Phone: Comment on above: Location: [facility]; 10-03-2019 10:09-0500 BSA (Body Surface Area) 1.82 m2 Don Barrera [facility] Work Phone: 10-03-2019 10:09-0500 Height 165.1 cm Don Barrera [facility] Work Phone: 10-03-2019 10:09-0500 Pulse (Heart Rate) 64 /min Don Barrera [facility] Work Phone: 10-03-2019 10:09-0500 Pulse Oximetry 97 % Don Barrera [facility] Work Phone: 09-25-2019 13:50-0500 Body Temperature 98.6 [degF] [facility] 09-25-2019 13:50-0500 BP Diastolic 60 mm[Hg] [facility] 09-25-2019 13:50-0500 BP Systolic 110 mm[Hg] Jeniferayesha Greene [facility] 09-25-2019 13:50-0500 Pulse (Heart Rate) 64 /min Jeniferayesha Greene [facility] 09-25-2019 13:50-0500 Pulse Oximetry 97 % [facility] 09-25-2019 11:52-0500 Body Temperature 98.8 [degF] Chary Mayorga [facility] 09-25-2019 11:52-0500 BP Diastolic 74 mm[Hg] [facility]-25-[facility] 11:52-0500 BP Systolic 128 mm[Hg] [facility] 09-25-2019 11:52-0500 Pulse (Heart Rate) 52 /min [facility] 09-25-2019 11:52-0500 Pulse Oximetry 99 % Charyjatin Mayorga [facility] 09-23-2019 12:45-0500 BMI (Body Mass Index) 26.16 kg/m2 Vijay Viveros [facility] 09-23-2019 12:45-0500 Body weight 75.75 kg Vijay Viveros [facility] 09-23-2019 12:45-0500 Height 170.2 cm Vijay Viveros [facility] 09-22-2019 11:28-0500 Body Temperature 97.9 [degF] [facility] 09-22-2019 11:28-0500 BP Diastolic 74 mm[Hg] [facility] 09-22-2019 11:28-0500 BP Systolic 120 mm[Hg] [facility] 09-22-2019 11:28-0500 Pulse (Heart Rate) 77 /min [facility] 09-22-2019 11:28-0500 Pulse Oximetry 98 % [facility] 09-22-2019 10:34-0500 Body Temperature 98.2 [degF] [facility] 09-22-2019 10:34-0500 BP Diastolic 70 mm[Hg] [facility] 09-22-2019 10:34-0500 BP Systolic 120 mm[Hg] [facility] 09-22-2019 10:34-0500 Pulse (Heart Rate) 64 /min [facility] 09-22-2019 10:34-0500 Pulse Oximetry 97 % [facility] 09-22-2019 10:34-0500 Respiratory Rate 18 /min [facility] 09-19-2019 10:07-0500 Body Temperature 97.5 [degF] [facility] 09-19-2019 10:07-0500 BP Diastolic 58 mm[Hg] [facility] 09-19-2019 10:07-0500 BP Systolic 98 mm[Hg] [facility] 09-19-2019 10:07-0500 Pulse (Heart Rate) 68 /min [facility] 09-19-2019 10:07-0500 Pulse Oximetry 95 % [facility] 09-19-2019 10:07-0500 Respiratory Rate 16 /min [facility] 09-17-2019 11:35-0500 BMI (Body Mass Index) 27.72 kg/m2 [id number] [facility] TE-Fssnrrx-Qktljsr Work Phone: 09-17-2019 11:35-0500 Body weight 80.29 kg [id number] [facility] TS-Hxumimi-Whtqzgm Work Phone: 09-17-2019 11:35-0500 BP Diastolic 78 mm[Hg] [id number] [facility] KE-Kurwkje-Oeozqia Work Phone: 09-17-2019 11:35-0500 BP Systolic 124 mm[Hg] [id number] [facility] TY-Lflbyni-Dsgvdnu Work Phone: 09-17-2019 11:35-0500 BSA (Body Surface Area) 1.92 m2 [id number] [facility] QZ-Idcqoww-Vmmpegc Work Phone: 09-17-2019 11:35-0500 Height 170.18 cm [id number] [facility] ZG-Rnwgkpk-Oswxhtm Work Phone: 09-17-2019 11:25-0500 Body Temperature 97.9 [degF] Clemente [facility] 09-17-2019 11:25-0500 BP Diastolic 65 mm[Hg] [facility] 09-17-2019 11:25-0500 BP Systolic 110 mm[Hg] [facility] 09-17-2019 11:25-0500 Pulse (Heart Rate) 65 /min [facility] 09-17-2019 11:25-0500 Pulse Oximetry 98 % [facility] 09-15-2019 10:53-0500 Body Temperature 98.01 [degF] [facility] 09-15-2019 10:53-0500 BP Diastolic 72 mm[Hg] [facility] 09-15-2019 10:53-0500 BP Systolic 124 mm[Hg] [facility] 09-15-2019 10:53-0500 Pulse (Heart Rate) 72 /min [facility] 09-15-2019 10:53-0500 Pulse Oximetry 72 % [facility] 09-15-2019 10:53-0500 Respiratory Rate 16 /min [facility] 09-15-2019 10:28-0500 Body Temperature 98.01 [degF] [facility] 09-15-2019 10:28-0500 BP Diastolic 72 mm[Hg] [facility] 09-15-2019 10:28-0500 BP Systolic 124 mm[Hg] [facility] 09-15-2019 10:28-0500 Pulse (Heart Rate) 68 /min [facility] 09-15-2019 10:28-0500 Pulse Oximetry 97 % [facility] 09-12-2019 12:27-0500 Body Temperature 97.9 [degF] Chary [facility] 09-12-2019 12:27-0500 BP Diastolic 70 mm[Hg] [facility] 09-12-2019 12:27-0500 BP Systolic 110 mm[Hg] [facility] 09-12-2019 12:27-0500 Pulse (Heart Rate) 77 /min [facility] 09-12-2019 12:27-0500 Pulse Oximetry 95 % [facility] 09-12-2019 10:17-0500 Body Temperature 97.3 [degF] Milagro Leal [facility] 09-12-2019 10:17-0500 BP Diastolic 60 mm[Hg] Milagro Leal [facility] 09-12-2019 10:17-0500 BP Systolic 112 mm[Hg] Milagro Leal [facility] 09-12-2019 10:17-0500 Pulse (Heart Rate) 68 /min Milagro Leal [facility] 09-12-2019 10:17-0500 Pulse Oximetry 93 % Milagro Leal [facility] 09-12-2019 10:17-0500 Respiratory Rate 18 /min Milagro Leal [facility] 09-11-2019 14:58-0500 Respiratory Rate 16 /min Vijay Viveros [facility] 09-11-2019 13:24-0500 Body Temperature 99.1 [degF] Vijay Viveros [facility] 09-11-2019 13:24-0500 BP Diastolic 78 mm[Hg] Vijay Viveros [facility] 09-11-2019 13:24-0500 BP Systolic 135 mm[Hg] Vijay Viveros [facility] 09-11-2019 13:24-0500 Pulse (Heart Rate) 71 /min Vijay Viveros [facility] 09-11-2019 13:24-0500 Pulse Oximetry 97 % Vijay Viveros [facility] 09-10-2019 08:38-0500 BMI (Body Mass Index) 26.24 kg/m2 Vijay Viveros [facility] 09-10-2019 08:38-0500 Body weight 76 kg Vijay Viveros [facility] 09-10-2019 08:38-0500 Height 170.2 cm Vijay Viveros [facility] 05-19-2019 10:18-0400 BMI (Body Mass Index) 26.24 kg/m2 Heather [facility] 05-19-2019 10:18-0400 Body weight 78.29 kg Heather Paredes [facility] 05-19-2019 10:18-0400 BP Diastolic 73 mm[Hg] Heather Paredes [facility] 05-19-2019 10:18-0400 BP Systolic 139 mm[Hg] Heather Paredes [facility] 05-19-2019 10:18-0400 Height 172.7 cm Heather Paredes [facility] 05-19-2019 10:18-0400 Pulse (Heart Rate) 60 /min [facility] 10:18-0400 Pulse Oximetry 96 % Heather Paredes [facility] 04-28-2019 09:29-0400 BMI (Body Mass Index) 26.15 kg/m2 Vijay Viveros [facility] 04-28-2019 09:29-0400 Body weight 78.02 kg Vijay Viveros [facility] 04-28-2019 09:29-0400 Height 172.7 cm Vijay Viveros [facility] 04-22-2018 12:03-0400 BMI (Body Mass Index) 26.23 kg/m2 Heather Paredes [facility] 04-22-2018 12:03-0400 BP Diastolic 82 mm[Hg] Heather Paredes [facility] 04-22-2018 12:03-0400 BP Systolic 136 mm[Hg] Heather Paredes [facility] 04-22-2018 12:03-0400 Height 172.7 cm Heather Paredes [facility] 04-22-2018 12:03-0400 Pulse (Heart Rate) 61 /min Heather Paredes [facility] 04-22-2018 12:03-0400 Pulse Oximetry 93 % Heather Paredes [facility] 04-22-2018 12:03-0400 Weight 78.25 kg Heather Paredes [facility] Encounters Encounter Date Encounter Type Care Provider Facility Start: 05-18-2025 Evaluation and manag ement of inpatient LINCOLN [facility] Start: 05-11-2025 End: 05-11-2025 Emergency department patient visit LEONARDO BERGER [facility] Start: 05-10-2025 End: 05-11-2025 Evaluation and management of inpatient SANTIAGO MENENDEZ [facility] Start: 05-10-2025 End: 05-20-2025 Evaluation and management of inpatient SANTIGAO MENENDEZ [facility] Comment on above: Fall, initial encoun ter (Primary Dx); Open fracture of roof of right orbit, initial encounter (Multi); Closed bilateral fracture of pubic rami, initial encounter (Multi); SAH (subarachnoid hemorrhage) (Multi); Syncope, unspecified syncope type; Urinary retention; Pseudophakia of both eyes Start: 05-10-2025 End: 05-10-2025 Emergency department patient visit Santiago Menendez DO Work Phone: [facility] Comment on above: Closed fracture of r ight orbit, initial encounter (Multi) (Primary Dx); Intracranial hemorrhage (Multi); Multiple closed fractures of pelvis with disruption of pelvic ring, initial encounter (Multi) Start: 05-08-2025 End: 05-08-2025 Subsequent hospital visit by physician Doug X-Ray 1 [facility] Comment on above: Neck pain Start: 05-08-2025 End: 05-08-2025 ambulatory [facility] Start: 05-07-2025 End: 05-07-2025 Office outpatient visit 15 minutes Don Barrera MD Work Phone: [facility] Comment on above: Neck pain (Primary D x) Start: 05-07-2025 End: 05-07-2025 ambulatory [facility] Start: 04-10-2025 End: 04-10-2025 Subsequent hospital visit by physician [facility] X-Ray 1 [facility] Comment on above: Rib pain on left chelo e Start: 04-10-2025 End: 04-10-2025 ambulatory LINCOLN Raymundo KING [facility] Start: 04-10-2025 End: 04-10-2025 ambulatory [facility] Start: 04-10-2025 End: 04-10-2025 Patient encounter procedure Eladio Kingsley DPM Work Phone: [facility] Comment on above: Onychomycosis (Prima ry Dx); Peripheral vascular disease, unspecified Rib pain on left chelo e (Primary Dx) Start: 04-10-2025 End: 04-10-2025 ambulatory [facility] Start: 03-10-2025 End: 03-10-2025 ambulatory DELTA BANGURA Facility:[facility] Start: 01-09-2025 End: 01-09-2025 Patient encounter procedure Eladio Kingsley DPM Work Phone: [facility] Comment on above: Onychomycosis (Prima ry Dx); Peripheral vascular disease, unspecified Start: 01-09-2025 End: 01-09-2025 ambulatory [facility] Start: 11-20-2024 End: 11-20-2024 Office outpatient visit 25 minutes Don Barrera MD Work Phone: [facility] Comment on above: Primary hypertension (Primary Dx); Mixed hyperlipidemia; 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; Benign prostatic 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 lower urinary tract symptoms; Osteoarthritis of spine with radiculopathy, lumbosacral region; MARIANGEL (generalized anxiety disorder); Anemia, unspecified type; Abdominal aneurysm (CMS-HCC); Peripheral arterial occlusive disease (CMS-HCC); Inflammatory polyarthropathy (Multi); Screening for prostate cancer Start: 11-20-2024 End: 11-20-2024 ambulatory [facility] Start: 11-10-2024 End: 11-10-2024 ambulatory [facility] Start: 10-01-2024 End: 10-01-2024 Patient encounter procedure Eladio Kingsley DPM Work Phone: [facility] Comment on above: Onychomycosis (Prima ry Dx); Peripheral vascular disease, unspecified (HCC) Start: 10-01-2024 End: 10-01-2024 ambulatory [facility] Start: 09-02-2024 End: 09-02-2024 Subsequent hospital visit by physician Doug Avilez [facility] Comment on above: Vertigo; Palpitations Start: 09-02-2024 End: 09-02-2024 [facility] Start: 09-01-2024 End: 09-01-2024 Office outpatient visit 25 minutes Don Barrera MD Work Phone: [facility] Comment on above: Vertigo (Primary Dx) ; Hypertension, unspecified type; MARIANGEL (generalized anxiety disorder); 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; Hyperlipidemia, unspecified hyperlipidemia type; Migraine with visual aura; Palpitations Start: 09-01-2024 End: 09-01-2024 ambulatory [facility] Start: 08-14-2024 End: 08-14-2024 ambulatory [facility] Start: 07-31-2024 End: 07-31-2024 Subsequent hospital visit by physician Doug Landry [address] [place] [address] Comment on above: 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; TIA (transient ischemic attack); Benign hypertensive heart disease without congestive heart failure; Personal history of transient ischemic attack (TIA), and cerebral infarction without residual deficits Start: 07-31-2024 End: 07-31-2024 ambulatory [facility] Start: 07-29-2024 End: 07-29-2024 Subsequent hospital visit by physician Doug Mri [facility] Comment on above: Radiculopathy, lumba r region Start: 07-29-2024 End: 07-29-2024 ambulatory MACK GALEANA [facility] Start: 07-03-2024 End: 07-03-2024 Office outpatient visit 25 minutes Otoniel Salcedo MD Work Phone: [facility] Comment on above: 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 (Primary Dx); TIA (transient ischemic attack); Benign hypertensive heart disease without congestive heart failure Start: 07-03-2024 End: 07-03-2024 ambulatory [facility] Start: 06-17-2024 End: 06-17-2024 Subsequent hospital visit by physician Doug Walter 2 [facility] Comment on above: Abdominal aneurysm ( [facility]-H[facility]); Infrarenal abdominal aortic aneurysm (AAA) without rupture ([facility]-H[facility]) Start: 06-17-2024 End: 06-17-2024 ambulatory DON Baptiste [facility] Start: 06-12-2024 End: 06-12-2024 [facility] Start: 06-12-2024 End: 06-12-2024 Subsequent hospital visit by physician Doug X-Ray 1 [facility] Comment on above: Left hip pain Start: 06-06-2024 End: 06-06-2024 Patient encounter procedure Eladio Kingsley DPM Work Phone: [facility] Comment on above: Onychomycosis (Prima ry Dx); PAD (peripheral artery disease) ([facility]) Start: 06-06-2024 End: 06-06-2024 ambulatory ELADIO KINGSLEY JR. 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, bilateral, early dry stage (Primary Dx); Epiretinal membrane (ERM) of left eye; Pseudophakia of both eyes; Dry eye syndrome of both eyes; Ocular migraine; Essential hypertension; Hypercholesteremia; Anxiety Start: 02-29-2024 End: 02-29-2024 Patient encounter procedure Eladio Kingsley DPM Work Phone: [facility] Comment on above: Onychomycosis (Prima ry Dx); PAD (peripheral artery disease) ([facility]) Start: 02-12-2024 End: 02-12-2024 Office outpatient new 60 minutes Don Barrera MD Work Phone: [facility] Comment on above: Vestibular migraine (Primary Dx) Start: 12-07-2023 End: 12-07-2023 Emergency department patient visit Celso Cabezas DO Work Phone: [facility] Comment on above: Dizziness (Primary D x) Start: 11-30-2023 End: 11-30-2023 Patient encounter procedure Eladio Kingsley DPM Work Phone: [facility] Comment on above: Onychomycosis (Prima ry Dx); PAD (peripheral artery disease) (HCC) Start: 11-16-2023 End: 11-16-2023 Subsequent hospital visit by physician Doug Alves [employer] [facility] Comment on above: Arrived Start: 11-15-2023 End: 11-15-2023 Emergency department patient visit Celso Cabezas DO Work Phone: [facility] Comment on above: Dizziness (Primary D x); Generalized weakness Start: 11-15-2023 End: 11-15-2023 Office outpatient visit 15 minutes Daysi Arenas DO Work Phone: [facility] Comment on above: 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 esophag itis (Primary Dx); Hiatal hernia Start: 11-12-2023 End: 11-12-2023 Subsequent hospital visit by physician Doug Alves Nonv1 [facility] Comment on above: Arrived Start: 11-11-2023 End: 11-11-2023 Emergency department patient visit Sai Myers MD Work Phone: [facility] Start: 11-06-2023 End: 11-06-2023 Subsequent hospital visit by physician Doug X-Ray Fluoro 1 [facility] Comment on above: 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 esophag itis; Hiatal hernia Start: 11-05-2023 End: 11-05-2023 Office outpatient visit 25 minutes Don Barrera MD Work Phone: [facility] Comment on above: Primary hypertension (Primary Dx); Screening for prostate cancer; Mixed hyperlipidemia; 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; Benign prostatic 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 lower urinary tract symptoms; Osteoarthritis of spine with radiculopathy, lumbosacral region; MARIANGEL (generalized anxiety disorder); Vertigo; Inflammatory polyarthropathy (CMS/HCC); Peripheral arterial occlusive disease (CMS/HCC); Abdominal aneurysm (CMS/HCC) Start: 11-01-2023 End: 11-01-2023 Office outpatient new 45 minutes Daysi Arenas DO Work Phone: [facility] Comment on above: Hiatal hernia (Prima ry Dx); 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 Start: 10-31-2023 End: 10-31-2023 Office outpatient visit 15 minutes Eladio Kingsley DPM Work Phone: [facility] Comment on above: Ingrown nail (Primar y Dx); Peripheral vascular disease, unspecified (HCC) Start: 10-24-2023 End: 10-24-2023 Office outpatient visit 15 minutes Eladio Halln DPM Work Phone: [facility] Comment on above: Ingrown nail (Primar y Dx) Start: 10-12-2023 End: 10-12-2023 Patient encounter procedure Eladio Kingsley DPM Work Phone: [facility] Comment on above: Ingrown nail (Primar y Dx) Start: 10-06-2023 End: 10-06-2023 Patient encounter procedure Clark Lees PA-C Work Phone: [facility] Comment on above: Urinary frequency (P rimary Dx); Dysuria Start: 09-28-2023 End: 09-28-2023 Office outpatient visit 15 minutes Don Barrera MD Work Phone: [facility] Comment on above: 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 esophag itis (Primary Dx) Start: 09-17-2023 End: 09-17-2023 Office outpatient visit 25 minutes Robb Colindres MD Work Phone: [facility] Comment on above: Benign prostatic hyp erplasia with lower urinary tract symptoms, symptom details unspecified; Nocturia; Erectile dysfunction, unspecified erectile dysfunction type; Urinary frequency; Nocturia associated with benign prostatic hyperplasia Start: 08-29-2023 End: 08-29-2023 Patient encounter procedure Delta Bangura MD Work Phone: Ophthalmology Comment on above: Epiretinal membrane (ERM) of left eye (Primary Dx); Nonexudative age-related macular degeneration, bilateral, early dry stage; PVD (posterior vitreous detachment), bilateral; Pseudophakia of both eyes; Essential hypertension; Hypercholesteremia Start: 07-22-2023 End: 07-23-2023 Emergency department patient visit Sai Myers MD Work Phone: [facility] Comment on above: Dizziness (Primary D x); Vertigo Start: 06-21-2023 Office outpatient vi sit 25 minutes Don Barrera Work Phone: [id number] Work Phone: Start: 05-31-2023 End: 05-31-2023 Office outpatient visit 15 minutes Don Barrera MD Work Phone: [facility] Comment on above: Chronic right should er pain (Primary Dx) Start: 05-10-[address] Devan Barrera Facility:[id number] Start: 05-04-2023 End: 05-04-2023 Assay of hemosiderin, quant Don Barrera MD Work Phone: [facility] Work Phone: Start: 05-04-2023 End: 05-04-2023 Patient encounter procedure Don Barrera MD Work Phone: [facility] Comment on above: Routine general medi randy examination at health care facility (Primary Dx); Benign prostatic hyperplasia, unspecified whether lower urinary tract symptoms present; Primary hypertension; Peripheral arterial occlusive disease (CMS/HCC); Abdominal aneurysm (CMS/HCC); Mixed hyperlipidemia; 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) Start: 03-10-2023 End: 03-10-2023 Emergency department patient visit Dr. Don Barrear Facility:[id number] Start: 02-21-2023 End: 02-21-2023 Patient encounter procedure Delta Bangura MD Work Phone: Ophthalmology Comment on above: Epiretinal membrane (ERM) of left eye (Primary Dx); Nonexudative age-related macular degeneration, bilateral, early dry stage; PVD (posterior vitreous detachment), bilateral; Pseudophakia of both eyes; Essential hypertension; Hypercholesteremia; Osteoarthritis, unspecified osteoarthritis type, unspecified site Start: 02-09-2023 End: 02-09-2023 Patient encounter procedure Eladio Kingsley DPM Work Phone: [facility] Comment on above: Onychomycosis (Prima ry Dx); Peripheral vascular disease, unspecified (HCC) Start: 11-17-2022 End: 11-17-2022 Patient encounter procedure Eladio Dillon DPM Work Phone: [facility] Comment on above: Onychomycosis (Prima ry Dx); Peripheral vascular disease, unspecified (HCC) Start: 10-27-2022 Office outpatient vi sit 25 minutes Don Barrera Work Phone: [facility] Work Phone: Start: 10-24-2022 Chart Update Don Barrera Work Phone: [facility] Work Phone: Start: 09-23-2022 ambulatory Ms. Heike Smith [facility] Facility:[id number] Start: 09-23-2022 End: 09-23-2022 Emergency department patient visit Heike Adams [facility] Start: 09-18-2022 AUDIT Don Barrera Work Phone: [facility] Work Phone: Start: 09-04-2022 AUDIT Don Barrera Work Phone: [facility] Work Phone: Start: 08-18-2022 End: 08-18-2022 Patient encounter procedure Eladio Sancho DPM Work Phone: [facility] Comment on above: Onychomycosis (Prima ry Dx); Peripheral vascular disease, unspecified (HCC) Start: 06-15-2022 Office outpatient ne w 45 minutes Don Barrera Work Phone: [id number] Work Phone: Start: 05-19-2022 End: 05-19-2022 Patient encounter procedure Eladio Acevedolon DPM Work Phone: [facility] Comment on above: OM (onychomycosis) ( Primary Dx); Peripheral vascular disease, unspecified (HCC) Start: 04-26-2022 Patient encounter procedure Don Barrera Work Phone: [facility] Work Phone: Start: 04-21-2022 Chart Update Don Barrera Work Phone: [facility] Work Phone: Start: 02-27-2022 Office outpatient vi sit 15 minutes Don Barrera Work Phone: [facility] [facility] Work Phone: Start: 02-16-2022 Refill Heather arredondo MD Work Phone: [facility] Comment on above: Medication Refill Start: 02-15-2022 End: 02-15-2022 Patient encounter procedure Eladio Sancho DPM Work Phone: [facility] Comment on above: OM (onychomycosis) ( Primary Dx); PAD (peripheral artery disease) (HCC) Start: 12-12-2021 AUDIT Don Barrera Work Phone: [facility] Work Phone: Start: 11-22-2021 Chart Update Don Barrera Work Phone: [facility] Work Phone: Start: 11-15-2021 Patient encounter procedure Don Barrera Work Phone: [facility] Work Phone: Start: 11-04-2021 AUDIT Don Barrera Work Phone: [facility] Work Phone: Start: 11-04-2021 End: 11-04-2021 Patient encounter procedure Eladio Acevedolon DPM Work Phone: [facility] Comment on above: Onychomycosis (Prima ry Dx); Peripheral vascular disease, unspecified (HCC) Start: 10-26-2021 Office outpatient vi sit 25 minutes Don Barrera Work Phone: [facility] Work Phone: Start: 09-20-2021 AUDIT Don Barrera Work Phone: [facility] Work Phone: Start: 08-30-2021 Patient encounter procedure Don Barrera Work Phone: [facility] Work Phone: Start: 07-01-2021 End: 07-01-2021 Office outpatient visit 10 minutes Vijay Viveros MD Work Phone: [facility] Comment on above: Status post left hip replacement (Primary Dx) Start: 06-23-2021 PTROJ, Provider : Dioni Elmore, Status: Pen, Time: 1:15 PM Dno Barrera Work Phone: [facility] Work Phone: Start: 06-21-2021 Patient encounter procedure Don Barrera Work Phone: [facility] Work Phone: Start: 06-16-2021 Patient encounter procedure Don Barrera Work Phone: [facility] Work Phone: Start: 06-10-2021 Patient encounter procedure Don Barrera Work Phone: [facility] Work Phone: Start: 06-07-2021 Patient encounter procedure Don Barrera Work Phone: [facility] Work Phone: Start: 05-25-2021 Patient encounter procedure Don Barrera Work Phone: [facility] Work Phone: Start: 05-20-2021 End: 05-20-2021 Office outpatient visit 10 minutes Vijay Viveros MD Work Phone: [facility] Comment on above: Status post left hip replacement (Primary Dx) Start: 05-18-2021 Office outpatient vi sit 25 minutes Don Barrera Work Phone: [facility] Work Phone: Start: 05-13-2021 End: 05-13-2021 Patient encounter procedure Eladio Kingsley DPM Work Phone: [facility] Comment on above: Onychomycosis (Prima ry Dx); Peripheral vascular disease, unspecified (HCC) Start: 05-12-2021 Chart Update Don Barrera Work Phone: [facility] Work Phone: Start: 05-11-2021 AUDIT Don Barrera Work Phone: [facility] Work Phone: Start: 05-09-2021 End: 05-09-2021 Orders Only Deb Menendez RN [facility] Office Comment on above: 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 (Primary Dx) Start: 05-09-2021 End: 05-09-2021 Office outpatient visit 25 minutes Heather Paredes MD Work Phone: [facility] Comment on above: 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; Mixed hyperlipidemia; Bradycardia Start: 05-03-2021 End: 05-03-2021 Chart abstracting Eladio Kingsley DPM Work Phone: [facility] Comment on above: Callus of foot; OM (onychomycosis); PAD (peripheral artery disease) (HCC) Start: 04-20-2021 Patient encounter procedure Don Barrera Work Phone: [facility] Work Phone: Start: 01-11-2021 Patient encounter procedure Don Barrera MD KM-Xqbvawu-Kqlgxsf Work Phone: Start: 01-10-2021 Patient encounter procedure Don Barrera MD CS-Alqgjiq-Fwainwn Work Phone: Start: 11-24-2020 Patient encounter procedure Don Barrera MD FD-Klrzacb-Lsjffxv Work Phone: Start: 11-05-2020 End: 11-05-2020 Orders Only Desire [facility] Work Phone: [facility] Start: 10-12-2020 End: 10-12-2020 Office outpatient visit 10 minutes Santiago Bates Work Phone: [facility] Comment on above: Status post reverse arthroplasty of left shoulder (Primary Dx) Start: 10-11-2020 Patient encounter procedure Don Barrera MD FT-Vtmavxx-Phwfura Work Phone: Start: 08-20-2020 End: 08-20-2020 Office outpatient visit 10 minutes Vijay Viveros Work Phone: [facility] Comment on above: Status post left hip replacement (Primary Dx); Lumbar and sacral arthritis Start: 07-13-2020 End: 07-13-2020 Office outpatient visit 10 minutes Santiago Bates Work Phone: [facility] Comment on above: Status post reverse arthroplasty of left shoulder (Primary Dx) Start: 07-08-2020 Patient encounter procedure Don Barrera MD RU-Puxydkg-Ryjtmfz Work Phone: Start: 06-15-2020 End: 06-15-2020 Postop follow up visit related to original px Santiago Bates Work Phone: [facility] Comment on above: Status post reverse arthroplasty of left shoulder (Primary Dx) Start: 05-18-2020 End: 05-18-2020 Postop follow up visit related to original px Santiago Bates Work Phone: [facility] Comment on above: Status post reverse arthroplasty of left shoulder (Primary Dx) Start: 05-12-2020 Patient encounter procedure Don Barrera MD LO-Iytqvax-Scfnids Work Phone: Start: 04-27-2020 End: 04-27-2020 Postop follow up visit related to original px Santiago Bates Work Phone: [facility] Comment on above: Status post reverse arthroplasty of left shoulder (Primary Dx); Rotator cuff arthropathy, left Start: 04-07-2020 Patient encounter procedure Don Barrera [facility] Work Phone: Start: 03-08-2020 End: 03-08-2020 Subsequent hospital visit by physician Heather Paredes Work Phone: [facility] Comment on above: 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 Arrived Start: 03-06-2020 End: 03-06-2020 Patient encounter procedure HEATHER PAREDES [facility] Start: 02-24-2020 End: 02-24-2020 Office outpatient visit 15 minutes Santiago Parkinson Paulo Work Phone: [facility] Comment on above: Rotator cuff arthrop athy, left (Primary Dx) Start: 12-15-2019 End: 12-15-2019 Office outpatient visit 10 minutes Vijay Viveros Work Phone: [facility] Comment on above: Nontraumatic complet e tear of left rotator cuff (Primary Dx); Rotator cuff arthropathy, left Start: 12-10-2019 End: 12-10-2019 Subsequent hospital visit by physician Vijay Viveros Work Phone: [facility] Comment on above: Nontraumatic complet e tear of left rotator cuff Start: 12-01-2019 End: 12-01-2019 Documentation procedure Gema Phillips [facility] Start: 11-26-2019 Patient encounter procedure Don Barrera [facility] Work Phone: Start: 11-14-2019 Patient encounter procedure Dioni Elmore [facility] Work Phone: Start: 11-12-2019 Patient encounter procedure Robb Colindres SARAH SB-Jucjqqr-Xunlwhv Work Phone: Start: 11-12-2019 Patient encounter procedure Isidoro Al [facility] Work Phone: Start: 11-07-2019 Patient encounter procedure Santy Moore [facility] Work Phone: Start: 11-05-2019 Patient encounter procedure Isidoro Al [facility] Work Phone: Start: 11-03-2019 Patient encounter procedure Isidoro Al [facility] Work Phone: Start: 10-31-2019 Patient encounter procedure Santy Moore [facility] Work Phone: Start: 10-29-2019 Patient encounter procedure Martine Villafuerte [facility] Work Phone: Start: 10-27-2019 End: 10-27-2019 Office outpatient visit 10 minutes Vijay Kenan Viveros Work Phone: [facility] Comment on above: Status post left hip replacement (Primary Dx); Nontraumatic complete tear of left rotator cuff Start: 10-27-2019 Patient encounter procedure Martine Villafuerte [facility] Work Phone: Start: 10-24-2019 Patient encounter procedure Santy Moore [facility] Work Phone: Start: 10-21-2019 Patient encounter procedure Dina Callaway [facility] Work Phone: Start: 10-14-2019 Patient encounter procedure Melody Joseph [facility] Work Phone: Start: 10-10-2019 Patient encounter procedure Dioni Elmore [facility] Work Phone: Start: 10-08-2019 Patient encounter procedure Robb Colindres SARAH ZW-Qbeuzsl-Aksurbz Work Phone: Start: 10-03-2019 Patient encounter procedure Alokbrayden Yuri [facility] Work Phone: Start: 09-25-2019 End: 09-25-2019 Home visit Jenifer Greene [facility] Comment on above: SN HH OASIS DISCHARG E PT NON-OASIS/DISCIPL INE DISCHARGE Start: 09-23-2019 End: 09-23-2019 Postop follow up visit related to original px Vijay Viveros Work Phone: [facility] Comment on above: Status post left hip replacement (Primary Dx) Start: 09-22-2019 End: 09-23-2019 Home visit Clemente [employer] [facility] Comment on above: 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 SUPERVISOR 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 Start: 09-22-2019 End: 09-22-2019 Home visit Jenifer Greene [facility] Comment on above: SN HH ROUTINE VISIT Start: 09-19-2019 End: 09-19-2019 Home visit Jenifer Greene [facility] Comment on above: SN HH ROUTINE VISIT Start: 09-17-2019 End: 09-17-2019 Home visit Clemente [employer] [facility] Comment on above: 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 SUPERVISOR 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 Start: 09-17-2019 Patient encounter procedure [id number] UATSDIN UROLOGY NURSE MP-Duoykux-Hwfwuze Work Phone: Start: 09-15-2019 End: 09-15-2019 Documentation procedure Gema Phillips [facility] Start: 09-15-2019 End: 09-15-2019 Home visit Clemente [place] [facility] Comment on above: SACK DEPARTMENT SUPERVISOR ROUTINE VISIT SN HH ROUTINE VISIT Start: 09-12-2019 End: 09-12-2019 Home visit Milagro Leal [facility] Comment on above: SN HH OASIS START OF CARE PT INITIAL EVALUATIO N Start: 09-11-2019 Patient encounter procedure GLORIA FONG [facility] Start: 09-10-2019 End: 09-10-2019 Admission to [facility] Don Barrera [facility] Start: 09-10-2019 End: 09-25-2019 Patient encounter procedure VIJAY KENAN VIVEROS [facility] Start: 09-10-2019 End: 09-11-2019 Evaluation and management of inpatient Vijay Marcoshard Work Phone: [facility] Comment on above: Status post total re placement of left hip (Primary Dx); Arthritis of left hip; Arthritis of left hip Start: 08-19-2019 End: 08-19-2019 Subsequent hospital visit by physician Vijay Viveros Work Phone: [facility] CT Scan Comment on above: Arthritis of left hi p Start: 08-18-2019 Patient encounter procedure Isidoro Quezada [facility] Work Phone: Start: 08-13-2019 Patient encounter procedure Cecy Linn [facility] Work Phone: Start: 08-11-2019 Patient encounter procedure Kelli Arteaga [facility] Work Phone: Start: 08-08-2019 Patient encounter procedure Dina Callaway [facility] Work Phone: Start: 08-06-2019 Patient encounter procedure Kelli Arteaga [facility] Work Phone: Start: 08-01-2019 Patient encounter procedure Kelli Arteaga [facility] Work Phone: Start: 07-30-2019 Patient encounter procedure Kelli Arteaga [facility] Work Phone: Start: 07-25-2019 Patient encounter procedure Kelli Arteaga [facility] Work Phone: Start: 07-14-2019 End: 07-14-2019 Postop follow up visit related to original px Vijay Viveros Work Phone: [facility] Comment on above: Arthritis of left hi p (Primary Dx) Start: 05-19-2019 End: 05-19-2019 Office outpatient visit 15 minutes Heather Paredes Work Phone: [facility] Comment on above: 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; Mixed hyperlipidemia Start: 04-28-2019 End: 04-28-2019 Office outpatient new 20 minutes Vijay Viveros Work Phone: [facility] Comment on above: Arthritis of right h ip (Primary Dx); Arthritis of left hip; Lumbar and sacral arthritis Start: 04-22-2018 End: 04-22-2018 Office outpatient visit 15 minutes Heather Paredes Work Phone: [facility] Patient encounter procedure Don Barrera MD QP-Lktdqqe-Kfclkog Work Phone: Procedures Date Procedure Procedure Detail Performing Clinician Start: 05-20-2025 Renal function panel Br deepika Mendoza [place] GRAPHIC DESIGN ASSISTANT-CLAIM TAKER Work Phone: Start: 05-19-2025 Radiologic exam abdo men 1 view Elaine Mendoza [place] GRAPHIC DESIGN ASSISTANT-CLAIM TAKER Work Phone: Start: 05-15-2025 Radiologic exam abdo men 1 view Rajwinder Omer MD Work Phone: Start: 05-15-2025 Glucose quantitative blood xcpt reagent strip Lay Waldrop MD Work Phone: Start: 05-14-2025 ELECTRICAL AND INSTRUMENTATION MECHANIC MODIFIED BARIUM SWALLOW EVALUATION Rajwinder Omer MD Work Phone: Start: 05-14-2025 Radiologic exam swal low function contrast study Rajwinder Omer MD Work Phone: Start: 05-14-2025 Blood count complete automated Rajwinder Omer MD Work Phone: Start: 05-13-2025 Echo tthrc r-t 2d w/wom-mode compl spec&colr d Rajwinder Omer MD Work Phone: Start: 05-13-2025 Renal function panel Jessica Omer MD Work Phone: Start: 05-12-2025 Renal function panel Dwight Granda MD Work Phone: Start: 05-11-2025 Basic metabolic pane l calcium total Daryl Dickson Start: 05-11-2025 Radiologic exam pelv is compl minimum 3 views Miguel Resendiz MD Work Phone: Start: 05-11-2025 Ecg routine ecg w/le ast 12 lds trcg only w/o i&r Miguel Resendiz MD Work Phone: Start: 05-11-2025 Radiologic exam ches t single view Miguel Resendiz MD Work Phone: Start: 05-10-2025 Ct head/brain w/o contrast material Carri Greer MD Work Phone: Start: 05-10-2025 Simple repair f/e/e/ n/l/m 2.6cm-5.0 cm Brandee Hawkins PA-C Work Phone: Start: 05-10-2025 Assay of troponin quantitative Santiago Charline Menendez DO Work Phone: Start: 05-10-2025 End: 05-10-2025 Radex hand minimum 3 views Santiago Charline Menendez DO Work Phone: Start: 05-10-2025 Ct thorax w/contrast material Santiago Charline Menendez DO Work Phone: Start: 05-10-2025 Ct cervical spine w/ o contrast material Santiago Charline Menendez DO Work Phone: Start: 05-10-2025 End: 05-10-2025 Ct head/brain w/o contrast material Santiago Charline Menendez DO Work Phone: Start: 05-10-2025 Basic metabolic pane l calcium total Santiago Menendez DO Work Phone: Start: 05-10-2025 Blood typing serolog ic rh (d) Santiago Menendez DO Work Phone: Start: 05-10-2025 Troponin I.cardiac p lindsay - Serum or Plasma by High sensitivity method Santiago Menendez DO Work Phone: Start: 04-10-2025 Radex ribs uni w/posteroant ch minimum 3 views Lincoln King GRAPHIC DESIGN ASSISTANTMotosmarty Work Phone: Start: 11-20-2024 Lipid 1996 panel - S mansi or Plasma Lincoln King GRAPHIC DESIGN ASSISTANT-CLAIM TAKER Work Phone: Start: 09-01-2024 Ecg routine ecg w/le ast 12 lds w/i&r Don Barrera MD Work Phone: Start: 07-31-2024 Echo tthrc r-t 2d w/wom-mode compl spec&colr emile Salcedo MD Work Phone: Start: 06-17-2024 Dup-scan aorta ivc i liac vascl/bpgs complete Don Barrera MD Work Phone: Start: 05-13-2024 Lipid 1996 panel - S mansi or Plasma Doug 1 Start: 03-05-2024 Computerized ophthal josee imaging retina Delta Bangura MD Work Phone: Start: 02-12-2024 Adult depression screening assessment Sage Kwon MD Work Phone: Start: 12-07-2023 Ecg routine ecg w/le ast 12 lds trcg only w/o i&r Celso Cabezas DO Work Phone: Start: 12-07-2023 Mri brain brain stem w/o contrast material Celso Cabezas DO Work Phone: Start: 12-07-2023 Urnls dip stick/tabl et rgnt auto w/o microscopy Celso Cabezas DO Work Phone: Start: 12-07-2023 Comprehensive metabo lic panel Celso Cabezas DO Work Phone: Start: 11-16-2023 Ecg routine ecg w/le ast 12 lds trcg only w/o i&r Celso Hawkjim DO Work Phone: Start: 11-15-2023 Assay of troponin quantitative Bhargavi Feliciano PA-C Work Phone: Start: 11-15-2023 Influenza virus A an d B and SARS-CoV-2 (COVID-19) identified in Respiratory specimen by DONY with probe detection Bhargavi Feliciano PA-C Work Phone: Start: 11-15-2023 Urnls dip stick/tabl et rgnt auto w/o microscopy Bhargavi Feliciano PA-C Work Phone: Start: 11-15-2023 Radiologic exam ches t single view Bhargavi Feliciano PA-C Work Phone: Start: 11-15-2023 Ct head/brain w/o contrast material Bhargavi Feliciano PA-C Work Phone: Start: 11-15-2023 End: 11-15-2023 Comprehensive metabolic panel Bhargavi Feliciano PA-C Work Phone: Start: 11-15-2023 Troponin I.cardiac p lindsay - Serum or Plasma by High sensitivity method Bhargavi Feliciano PA-C Work Phone: Start: 11-12-2023 Ecg routine ecg w/le ast 12 lds trcg only w/o i&r Sai Myers MD Work Phone: Start: 11-11-2023 Radiologic exam ches t single view Sai Myers MD Work Phone: Start: 11-11-2023 Urnls dip stick/tabl et rgnt auto w/o microscopy Sai Myers MD Work Phone: Start: 11-11-2023 Basic metabolic pane l calcium total Sai Myers MD Work Phone: Start: 11-06-2023 Radiologic exam esop hagus single contrast study Daysi Arenas DO Work Phone: Start: 11-01-2023 Lipid 1996 panel - S mansi or Plasma Don Barrera MD Work Phone: Start: 10-24-2023 SKIN PREP Eladio sagastume DPM Work Phone: Start: 10-06-2023 Urnls dip stick/tabl et rgnt non-auto w/o micrscp Clark Lees PA-C Work Phone: Start: 09-17-2023 MEASURE POST VOID RESIDUAL Robb Colindres MD Work Phone: Start: 08-29-2023 Fundus photography w/interpretation & report Delta Bangura MD Work Phone: Start: 07-22-2023 End: 07-22-2023 Basic metabolic panel calcium total Sai Myers MD Work Phone: Start: 05-31-2023 Arthrocentesis aspir &/inj major jt/bursa w/o us Don Barrera MD Work Phone: Start: 04-30-2023 Lipid 1996 panel - S mansi or Plasma Don Barrera MD Work Phone: Start: 02-21-2023 Computerized ophthal josee imaging retina Delta Bangura MD Work Phone: Start: 05-09-2021 Ecg routine ecg w/le ast 12 lds w/i&r Heather Paredes MD Work Phone: Start: 04-07-2020 Comprehensive metabo lic 2000 panel Don Barrera Start: 04-07-2020 Lipoprotein direct measurement ldl cholesterol Don Barrera Start: 03-08-2020 Myocardial spect sin gle study at rest or stress Heather Paredes Work Phone: Start: 12-10-2019 Mri any jt upper extremity w/o contrast matrl Vijay Viveros Work Phone: Start: 11-12-2019 Ultrasound Kidney Bilateral Robb Colindres II Start: 10-03-2019 Comprehensive metabo lic 2000 panel Don Sheltond Start: 10-03-2019 Lipid panel Devan Barrera Start: 09-11-2019 Basic metabolic 2000 panel - Serum or Plasma Vijay Viveros Work Phone: Start: 09-11-2019 Hemoglobin and Hemat ocrit panel - Blood Vijay Viveros Work Phone: Start: 09-10-2019 Radex hip unilateral with pelvis 2-3 views Vijay Viveros Work Phone: Start: 09-10-2019 End: 09-10-2019 ARTHROPLASTY HIP ROBOTIC Vijay pulliam Work Phone: Start: 08-19-2019 Ct lower extremity w /o contrast material Vijay Viveros Work Phone: Start: 05-19-2019 12 lead ECG Heather ospina Work Phone: Start: 03-20-2019 [object Object] Comment on above: Result Comment: AGE- SPECIFIC REFERENCE RANGES FOR SERUM PSA REFERENCE RANGE NG/ML AGE ASIANS BLACKS WHITE 40-49 0-2 0-2 0-2.5 50-59 0-3 0-4 0-3.5 60-69 0-4 0-4.5 0-4.5 70-79 0-5 0-5.5 0-6.5 PSA INCREASES WITH AGE, RACE, AND EJACULATION WITHIN 48 HRS. [facility] VOL24,NO.2, , PG.339 Performed By: #### [id number] #### LUIS MANUEL [employer] [address] [place] [address] Start: 11-18-2014 End: 12-30-2015 History of cataract extraction S/P laser cataract surgery - Both Eyes Delta Bangura MD Work Phone: Biopsy of skin Alokbrayden Emile Barrera Work Phone: Cataract surgery Kelli Arteaga Fiberoptic colonoscopy Kelli Arteaga History of Inguinal Hernia Repair Kelli Arteaga History Of Prior Surgery Fara Arteaga Comment on above: Cath of both left an d right sides without graft by Dr Paredes in 2010; Prosthetic arthropla sty of the hip Eligiodequan Yuri Comment on above: L THR, 2019, Kirk baptiste; Repair of shoulder Eligio er Emile Barrera Work Phone: Comment on above: reverse lt shoulder relplacement Dr Bates 2019; Tonsillectomy and adenoidectomy Kelli Arteaga Total replacement of hip Chr caesar Barrera Work Phone: Comment on above: L THR, 2019, Kirk baptiste; Plan of Treatment Date Care Activity Detail Author Start: 05-10-2035 DTaP/Tdap/Td Vaccine s (2 - Td or Tdap) DTaP/Tdap/Td Vaccines (2 - Td or Tdap) [facility] Start: 11-20-2029 Lipid panel Lipid Panel [facility] Start: 05-13-2029 Lipid panel Lipid Panel [facility] Start: 11-01-2028 Lipid panel Lipid Panel [facility] Start: 04-30-2028 Lipid panel Lipid Panel [facility] Start: 12-07-2026 Diabetes Screening Diabetes Screenin [facility] Start: 07-22-2026 [facility] Start: 05-20-2026 Diabetes mellitus screening Diabetes Screening [facility] Start: 05-10-2026 Diabetes mellitus screening Diabetes Screening [facility] Start: 01-02-2026 DIABETES SCREEN DIABETES SCREEN [facility] Start: 11-10-2025 Diabetes mellitus screening Diabetes Screening [facility] Start: 07-16-2025 End: 07-16-2025 Patient encounter procedure 07/16/2025 11:30 AM EDT Office Visit [facility] [address] [place] [phone] David Canela, GRAPHIC DESIGN ASSISTANT-CLAIM TAKER [address], [facility] 2 [place], [place] [phone] [facility] Start: 07-10-2025 End: 07-10-2025 Patient encounter procedure 07/10/2025 8:00 AM EDT Office Visit [facility] [address] [place], [place] [address] [address] Eladio Kingsley Jr., DPM [address] [place] [address] [facility] Start: 07-09-2025 End: 07-09-2025 Patient encounter procedure 07/09/2025 11:45 AM EDT Office Visit [facility] [address] [place] [address] Otoniel Salcedo MD [address], [address] [place] [address] [facility] Start: 06-22-2025 Influenza vaccination Influenza Vacc ine (#1) [facility] Start: 05-29-2025 End: 05-29-2025 Patient encounter procedure 05/29/2025 9:00 AM EDT Office Visit [facility] [address] [place] [phone] [place] [address] [place], [place] [phone] [facility] Start: 05-20-2025 End: 11-20-2025 Comprehensive metabolic 2000 panel - Serum or Plasma Comprehensive Metabolic Panel Lab Routine Mixed hyperlipidemia Primary hypertension Expected: 05/20/2025 (Approximate), Expires: 11/20/2025 [facility] Work Phone: Comment on above: Expected: 05/20/2025 (Approximate), Expires: 11/20/2025 Start: 05-20-2025 End: 11-20-2025 Lipid 1996 panel - Serum or Plasma Lipid Panel Lab Routine Mixed hyperlipidemia Expected: 05/20/2025 (Approximate), Expires: 11/20/2025 [facility] Work Phone: Comment on above: Expected: 05/20/2025 (Approximate), Expires: 11/20/2025 Start: 05-20-2025 Medicare Annual Wellness Visit Medicare Annual Wellness Visit (AWV) [facility] Start: 05-20-2025 End: 11-20-2025 Prostate specific Ag [Mass/volume] in Serum or Plasma Prostate Specific Antigen, Screen Lab Routine Benign prostatic 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 lower urinary tract symptoms Screening for prostate cancer Expected: 05/20/2025 (Approximate), Expires: 11/20/2025 [facility] Work Phone: Comment on above: Expected: 05/20/2025 (Approximate), Expires: 11/20/2025 Start: 05-20-2025 End: 05-20-2025 Patient encounter procedure 05/20/2025 8:40 AM EDT Office Visit [address] [address] Don Barrera MD [address] [place] [address] [facility] Start: 05-19-2025 Medicare Wellness Visit Medicare Wellness [facility] Start: 05-19-2025 End: 05-19-2025 ambulatory 05/19/2025 1:15 PM EDT Evaluation [address] [address] Carlos Trimble, PT [address] [place] [address] [facility] Start: 05-18-2025 End: 05-18-2025 ambulatory 05/18/2025 1:15 PM EDT Evaluation [facility] [address] [place] [address] Carlos Trimble, PT [address] [place] [address] [facility] Start: 05-12-2025 End: 05-12-2025 Patient encounter procedure 05/12/2025 2:15 PM EDT Office Visit [facility] Internal Medicine [address] [place] [address] Raj Parker MD [address] [facility] [address] [place] [phone] [facility] Start: 05-07-2025 End: 05-07-2026 XR Cervical spine 2 or 3 Views XR cervical spine 2-3 views Imaging Routine Neck pain Expected: 05/07/2025, Expires: 05/07/2026 [facility] Service Area Work Phone: Comment on above: Expected: 05/07/2025 , Expires: 05/07/2026 Start: 04-10-2025 End: 04-10-2025 Patient encounter procedure 04/10/2025 8:00 AM EDT Office Visit [facility] [address] [place] [phone] Eladio Kingsley Jr., DPM [address] [place] [address] [facility] Start: 03-10-2025 End: 03-10-2025 Patient encounter procedure 03/10/2025 3:30 PM EDT Office Visit [facility] [address] [phone] Delta Bangura MD [address] [place] [address] [facility] Comment on above: [facility] Start: 02-19-2025 COVID-19 Vaccine (7 - Moderna risk season) COVID-19 Vaccine (7 - Moderna risk season) [facility] Start: 02-19-2025 COVID-19 Vaccine (8 - season) COVID-19 Vaccine (8 - season) [facility] Start: 02-19-2025 COVID-19 Vaccine (8 - Moderna risk ) COVID-19 Vaccine (8 - Moderna risk ) [facility] Start: 02-11-2025 Depression screening using PHQ-9 (Patient Health Questionnaire 9) score [facility] Start: 12-31-2024 End: 12-31-2024 Patient encounter procedure 12/31/2024 8:15 AM EDT Office Visit [facility] [address] [place] [address] Eladio Kingsley Jr., DPM [address] [place] [address] [facility] Start: 11-20-2024 End: 11-20-2025 Cholesterol in LDL [Mass/volume] in Serum or Plasma Cholesterol, LDL Direct Lab Routine Mixed hyperlipidemia Expected: 11/20/2024 (Approximate), Expires: 11/20/2025 [facility] Work Phone: Comment on above: Expected: 11/20/2024 (Approximate), Expires: 11/20/2025 Start: 11-20-2024 End: 11-20-2025 Cobalamin (Vitamin B12) [Mass/volume] in Serum or Plasma Vitamin B12 Lab Routine Anemia, unspecified type Inflammatory polyarthropathy (Multi) Expected: 11/20/2024 (Approximate), Expires: 11/20/2025 [facility] Service Area Work Phone: Comment on above: Expected: 11/20/2024 (Approximate), Expires: 11/20/2025 Start: 11-20-2024 End: 11-20-2025 Ferritin [Mass/volume] in Serum or Plasma Ferritin Lab Routine Anemia, unspecified type Inflammatory polyarthropathy (Multi) Expected: 11/20/2024 (Approximate), Expires: 11/20/2025 [facility] Work Phone: Comment on above: Expected: 11/20/2024 (Approximate), Expires: 11/20/2025 Start: 11-20-2024 End: 11-20-2025 Folate [Mass/volume] in Serum or Plasma Folate Lab Routine Anemia, unspecified type Inflammatory polyarthropathy (Multi) Expected: 11/20/2024 (Approximate), Expires: 11/20/2025 [facility] Work Phone: Comment on above: Expected: 11/20/2024 (Approximate), Expires: 11/20/2025 Start: 11-20-2024 End: 11-20-2024 Patient encounter procedure [facility] Start: 11-15-2024 Diabetes mellitus screening Diabetes Screening [facility] Start: 09-05-2024 End: 09-05-2024 Patient encounter procedure 09/05/2024 8:00 AM EST [facility] [address] [place] [address] Eladio Kingsley Jr., DPM [address] [place] [address] [facility] Start: 09-01-2024 End: 09-01-2025 CBC W Auto Differential panel - Blood CBC and Auto Differential Lab Routine Vertigo Palpitations Expected: 09/01/2024 (Approximate), Expires: 09/01/2025 [facility] Work Phone: Comment on above: Expected: 09/01/2024 (Approximate), Expires: 09/01/2025 Start: 09-01-2024 End: 09-01-2025 Comprehensive metabolic 2000 panel - Serum or Plasma Comprehensive Metabolic Panel Lab Routine Vertigo Palpitations Expected: 09/01/2024 (Approximate), Expires: 09/01/2025 [facility] Work Phone: Comment on above: Expected: 09/01/2024 (Approximate), Expires: 09/01/2025 Start: 09-01-2024 End: 03-01-2026 Holter monitor study Holter Or Event Floorperson Cardiac Services Routine Vertigo Palpitations Expected: 09/01/2024, Expires: 03/01/2026 [facility] Service Area Work Phone: Comment on above: Expected: 09/01/2024 , Expires: 03/01/2026 Start: 09-01-2024 End: 11-11-2025 TSH with reflex to Free T4 if abnormal TSH with reflex to Free T4 if abnormal Lab Routine Vertigo Palpitations Expected: 09/01/2024 (Approximate), Expires: 09/01/2025 [facility] Work Phone: Comment on above: Expected: 09/01/2024 (Approximate), Expires: 09/01/2025 Start: 07-31-2024 End: 07-31-2024 Patient encounter procedure 07/31/2024 8:00 AM EDT Appointment [facility] [address] [place] [address] [facility] Start: 07-03-2024 End: 07-03-2026 US Heart Transthoracic Transthoracic Echo (TTE) Complete Echocardiography Routine 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 Expected: 07/03/2024 (Approximate), Expires: 07/03/2026 [facility] Service Area Work Phone: Comment on above: Expected: 07/03/2024 (Approximate), Expires: 07/03/2026 Start: 07-03-2024 End: 07-03-2024 Patient encounter procedure 07/03/2024 11:45 AM EDT Office Visit [facility] [address] [place] [address] Otoniel Salcedo MD [address], [place] [address] [facility] Start: 06-26-2024 FUV, Provider: Otoniel Salcedo, Status: Pen, Time: 8:30 AM FUV, Provider: Otoniel Salcedo, Status: Pen, Time: 8:30 AM XC-Gnjurxcjhs-Fslfvb d [address] [place] [address] Work Phone: Start: 06-26-2024 End: 06-26-2024 Patient encounter procedure [facility] Start: 06-22-2024 COVID-19 Vaccine ( season) COVID-19 Vaccine ( season) [facility] Start: 06-22-2024 Influenza vaccination Influenza Vacc ine (#1) [facility] Start: 06-06-2024 End: 06-06-2024 Patient encounter procedure 06/06/2024 8:00 AM EDT Office Visit [facility] [address] [place] [address] Eladio Kingsley Jr., DPM [address] [phone] [facility] Start: 05-19-2024 End: 05-19-2024 Patient encounter procedure 05/19/2024 8:00 AM EDT Office Visit [facility] [address] [place] [address] Don Barrera MD [address] [place] [address] [facility] Start: 05-05-2024 End: 11-05-2024 Comprehensive metabolic 2000 panel - Serum or Plasma Comprehensive Metabolic Panel Lab Routine Mixed hyperlipidemia Primary hypertension Expected: 05/05/2024 (Approximate), Expires: 11/05/2024 [facility] Service Area Work Phone: Comment on above: Expected: 05/05/2024 (Approximate), Expires: 11/05/2024 Start: 05-05-2024 End: 11-05-2024 Lipid 1996 panel - Serum or Plasma Lipid Panel Lab Routine Mixed hyperlipidemia Expected: 05/05/2024 (Approximate), Expires: 11/05/2024 [facility] Work Phone: Comment on above: Expected: 05/05/2024 (Approximate), Expires: 11/05/2024 Start: 05-05-2024 Medicare Annual Wellness Visit Medicare Annual Wellness Visit (AWV) [facility] Start: 05-05-2024 End: 11-05-2024 Prostate specific Ag [Mass/volume] in Serum or Plasma Prostate Specific Antigen, Screen Lab Routine Screening for prostate cancer Expected: 05/05/2024 (Approximate), Expires: 11/05/2024 [facility] Work Phone: Comment on above: Expected: 05/05/2024 (Approximate), Expires: 11/05/2024 Start: 05-04-2024 History and physical examination, annual for health maintenance Wellness Visit [facility] Start: 03-10-2024 Diabetes mellitus screening Diabetes Screening [facility] Start: 02-29-2024 End: 02-29-2024 Patient encounter procedure 02/29/2024 8:00 AM EDT Office Visit [facility] [address] [place] [address] Eladio Kingsley Jr., DPM [address] [place] [address] [facility] Start: 12-23-2023 COVID-19 Vaccine ( season) COVID-19 Vaccine () [facility] Start: 12-19-2023 End: 12-19-2023 ambulatory 12/19/2023 9:15 AM EST Treatment [facility] [address] [place] [address] Guilherme Elmore, PT [address] [facility] [place] [address] [facility] Start: 12-17-2023 End: 12-17-2023 Patient encounter procedure 12/17/2023 11:20 AM EST Office Visit [facility] [address] [place] [phone] Don Barrera MD [address] [place] [address] [facility] Start: 12-14-2023 End: 12-14-2023 ambulatory 12/14/2023 11:30 AM EST Treatment [address] [address] eCcy Linn, SACK DEPARTMENT SUPERVISOR [address] [facility] [place] [address] [facility] Start: 12-12-2023 End: 12-12-2023 ambulatory 12/12/2023 2:15 PM EST Treatment [address] [address] Guilherme Elmore, PT [address] [facility] [place] [address] [facility] Start: 12-06-2023 End: 12-06-2023 Patient encounter procedure 12/06/2023 2:00 PM EST Office Visit [facility] [address] [address] Daysi Arenas, DO [address] [facility], [address] [address] [facility] Start: 11-30-2023 End: 11-30-2023 Patient encounter procedure 11/30/2023 8:00 AM EST Office Visit [facility] [address] [place] [address] Eladio Kingsley Jr., DPM [address] [place] [phone] [facility] Start: 11-21-2023 End: 11-21-2023 ambulatory 11/21/2023 3:45 PM EST Evaluation [address] [phone] Guilherme Elmore, PT [address] [facility] [place] [phone] [facility] Start: 11-15-2023 End: 11-15-2023 Patient encounter procedure 11/15/2023 8:15 AM EST Office Visit [facility] [address] [facility] [address] [place] [address] Daysi Arenas DO [address] [place] [address] [facility], [address] [place] [address] [facility] Start: 11-06-2023 End: 11-06-2023 Patient encounter procedure 11/06/2023 7:45 AM EST Appointment [facility] [address] [place] [address] [facility] Start: 11-05-2023 End: 11-05-2023 Patient encounter procedure [facility] Start: 11-04-2023 End: 05-04-2024 Cholesterol in LDL [Mass/volume] in Serum or Plasma Cholesterol, LDL Direct Lab Routine Mixed hyperlipidemia Expected: 11/04/2023 (Approximate), Expires: 05/04/2024 [facility] Work Phone: Comment on above: Expected: 11/04/2023 (Approximate), Expires: 05/04/2024 Start: 11-04-2023 End: 05-04-2024 Comprehensive metabolic 2000 panel - Serum or Plasma Comprehensive Metabolic Panel Lab Routine Primary hypertension Expected: 11/04/2023 (Approximate), Expires: 05/04/2024 [facility] Service Area Work Phone: Comment on above: Expected: 11/04/2023 (Approximate), Expires: 05/04/2024 Start: 11-01-2023 End: 11-01-2024 RF Esophagus Views W barium contrast PO FL GI esophagram Imaging Routine 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 Hiatal hernia Expected: 11/01/2023 (Approximate), Expires: 11/01/2024 [facility] Service Area Work Phone: Comment on above: Expected: 11/01/2023 (Approximate), Expires: 11/01/2024 Start: 10-31-2023 End: 10-31-2023 Patient encounter procedure 10/31/2023 8:00 AM EST Office Visit [facility] [address] [facility] [place] [phone] Eladio Kingsley Jr., DPM [address] [place] [address] [facility] Start: 10-22-2023 Advance Directive Discussion Advance Directive Discussion [facility] Start: 10-22-2023 Behavioral Health Screening Behavioral Health Screening [facility] Start: 10-19-2023 COVID-19 Vaccine (5 - Moderna series) COVID-19 Vaccine (5 - Moderna series) [facility] Start: 10-19-2023 Covid-19 Vaccine (2022- season) Covid-19 Vaccine (2022- season) [facility] Start: 10-06-2023 End: 10-06-2024 Urinalysis complete panel - Urine Urinalysis with Reflex Microscopic Lab Routine Dysuria Expected: 10/06/2023 (Approximate), Expires: 10/06/2024 [facility] Area Work Phone: Comment on above: Expected: 10/06/2023 (Approximate), Expires: 10/06/2024 Start: 08-06-2023 End: 08-06-2023 Telemedicine consultation with patient 08/06/2023 8:15 AM EDT Telemedicine [facility] [address] [facility] [address] [place] [phone] Robb Colindres MD [address] [facility], [facility] [address] [place] [address] [facility] Start: 06-22-2023 Influenza vaccination [facility] Start: 06-21-2023 FUV, Provider: Otoniel Salcedo, Status: Pen, Time: 8:30 AM FUV, Provider: Otoniel Salcedo, Status: Pen, Time: 8:30 AM [id number]-Cijefe emile Mratini Work Phone: Start: 06-21-2023 Patient encounter procedure Outpatient [facility] Start: 21-Jun-2023 8:30 Otoniel Salcedo Intent [facility] Start: 05-11-2023 End: 05-11-2023 Patient encounter procedure 05/11/2023 8:00 AM EDT Office Visit [facility] [address] [place] [address] Eladio Kingsley Jr., DPM [address] [place] [address] [facility] Start: 05-04-2023 End: 05-04-2025 Vascular US abdominal aorta anuerysm AAA screening Vascular US abdominal aorta anuerysm AAA screening Vascular Ultrasound Routine 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) Expected: 05/04/2023 (Approximate), Expires: 05/04/2025 [facility] Work Phone: Comment on above: Expected: 05/04/2023 (Approximate), Expires: 05/04/2025 Start: 05-04-2023 EPV, Provider: Don Barrera, Status: Pen, Time: 8:00 AM EPV, Provider: Don Barrera, Status: Pen, Time: 8:00 AM [facility] Work Phone: Start: 04-27-2023 EPV, Provider: Don Barrera, Status: Pen, Time: 8:20 AM EPV, Provider: Don Barrera, Status: Pen, Time: 8:20 AM [facility] Work Phone: Start: 02-09-2023 End: 02-09-2023 Patient encounter procedure 02/09/2023 Office Visit Podiatry Eladio Kingsley Jr., DPM [address] [place] [address] [facility] Start: 11-17-2022 End: 11-17-2022 Patient encounter procedure 11/17/2022 Office Visit Podiatry Eladio Kingsley Jr., DPM [address] [place] [address] [facility] Start: 10-27-2022 EPV, Provider: Don Barrera, Status: Pen, Time: 8:40 AM EPV, Provider: Don Barrera, Status: Pen, Time: 8:40 AM [facility]VuelslLenore Martini Work Phone: Start: 10-27-2022 Patient encounter procedure [facility] [place] Start: 10-22-2022 ADVANCE DIRECTIVE DISCUSSION ADVANCE DIRECTIVE DISCUSSION [facility] Start: 10-22-2022 DEPRESSION ASSESSMENT DEPRESSION ASS ESSMENT [facility] Start: 09-27-2022 COVID-19 Vaccine (5 - Booster for Moderna series) COVID-19 Vaccine (5 - Booster for Moderna series) [facility] Start: 09-27-2022 COVID-19 Vaccine (5 - Moderna series) COVID-19 Vaccine (5 - Moderna series) [facility] Start: 08-18-2022 End: 08-18-2022 Patient encounter procedure 08/18/2022 Office Visit PodiatrEladio Diaz Jr., DPM [address] [place] [address] [facility] Start: 06-22-2022 Influenza vaccination Sequenti al Influenza Vaccine (#1) [facility] Start: 06-16-2022 COVID-19 Vaccine (5 - Booster for Moderna series) COVID-19 Vaccine (5 - Booster for Moderna series) [facility] Start: 06-15-2022 NPV, Provider: Otoniel Salcedo, Status: Pen, Time: 8:30 AM NPV, Provider: Otoniel Salcedo, Status: Pen, Time: 8:30 AM [facility] Work Phone: Start: 05-19-2022 End: 05-19-2022 Patient encounter procedure 05/19/2022 Office Visit PodiatrEladio Diaz Jr., DPM [address] [place] [address] [facility] Start: 05-17-2022 FUV, Provider: Robb Colindres II, Status: Pen, Time: 1:00 PM FUV, Provider: Robb Colindres II, Status: Pen, Time: 1:00 PM [facility] Work Phone: Start: 04-26-2022 EPV, Provider: Don Barrera, Status: Pen, Time: 8:20 AM EPV, Provider: Don Barrera, Status: Pen, Time: 8:20 AM [facility] Work Phone: Start: 03-08-2022 COVID-19 Vaccine (4 - Booster for Moderna series) COVID-19 Vaccine (4 - Booster for Moderna series) [facility] Start: 02-03-2022 End: 02-03-2022 Patient encounter procedure 02/03/2022 Office Visit Podiatry Eladio Kingsley Jr., DPM [address] [id number] [facility] Start: 12-09-2021 COVID-19 Vaccine (4 - Booster for Moderna series) COVID-19 Vaccine (4 - Booster for Moderna series) [facility] Start: 11-15-2021 FUV, Provider: Zoran Bennett, Status: Pen, Time: 11:15 AM FUV, Provider: Zoran Bennett, Status: Pen, Time: 11:15 AM [facility] Work Phone: Start: 10-26-2021 EPV, Provider: Don Barrera, Status: Pen, Time: 8:00 AM EPV, Provider: Don Barrera, Status: Pen, Time: 8:00 AM [facility] Work Phone: Start: 08-12-2021 End: 08-12-2021 Patient encounter procedure [facility] Start: 07-01-2021 End: 07-01-2021 Patient encounter procedure 07/01/2021 Office Visit Sports Medicine Vijay Viveros MD [address] [place] [address] [facility] Start: 06-23-2021 PTRECHADREAL, Provider : Dioni Elmore, Status: Pen, Time: 1:15 PM PTROJ, Provider: Dioni Elmroe, Status: Pen, Time: 1:15 PM [facility] Work Phone: Start: 06-22-2021 Influenza vaccination Sequenti al Influenza Vaccine (#1) [facility] Start: 06-21-2021 PTFUADULT4, Provider : Santy Moore, Status: Pen, Time: 1:15 PM PTFUADULT4, Provider: Santy Moore, Status: Pen, Time: 1:15 PM [facility] Work Phone: Start: 06-21-2021 PTFUADULT4, Provider : Dina Callaway, Status: Pen, Time: 1:15 PM PTFUADULT4, Provider: Dina Callaway, Status: Pen, Time: 1:15 PM [facility] Work Phone: Start: 06-16-2021 PTFUADULT4, Provider : Santy Moore, Status: Lakhwinder, Time: 1:15 PM PTFUADULT4, Provider: Santy Moore, Status: Pen, Time: 1:15 PM [facility]: Start: 06-14-2021 PTFUADULT4, Provider : Santy Moore, Status: Pen, Time: 1:15 PM PTFUADULT4, Provider: Santy Moore, Status: Pen, Time: 1:15 PM [facility] Start: 06-10-2021 PTFUADULT4, Provider : Cecy Linn, Status: Pen, Time: 10:00 AM PTFUADULT4, Provider: Cecy Linn, Status: Pen, Time: 10:00 AM [facility] Start: 06-07-2021 PTFUADULT4, Provider : Santy Moore, Status: Pen, Time: 2:45 PM PTFUADULT4, Provider: Santy Moore, Status: Pen, Time: 2:45 PM [facility] Start: 06-02-2021 PTFUADULT4, Provider : Cornelius Moses, Status: Pen, Time: 10:00 AM PTFUADULT4, Provider: Cornelius Moses, Status: Pen, Time: 10:00 AM [facility]: Start: 05-30-2021 PTFUADULT4, Provider : Dioni Elmore, Status: Pen, Time: 5:15 PM PTFUADULT4, Provider: Dioni Elmore, Status: Pen, Time: 5:15 PM [facility] Start: 05-20-2021 End: 05-20-2021 Patient encounter procedure [facility] Start: 05-18-2021 FUV, Provider: Robb Colindres II, Status: Pen, Time: 1:00 PM FUV, Provider: Robb Colindres II, Status: Pen, Time: 1:00 [facility] Work Phone: Start: 05-13-2021 End: 05-13-2021 Patient encounter procedure [facility] Start: 05-09-2021 End: 05-09-2021 Patient encounter procedure 05/09/2021 Office Visit Cardiology Heather Paredes MD [address] [address] [phone] [facility] Office Start: 11-24-2020 COVID-19 Vaccine (2 - Moderna 2-dose series) COVID-19 Vaccine (2 - Moderna 2-dose series) [facility] Start: 11-19-2020 End: 11-19-2020 Office Visit 11/19/2020 Office Visit Sports Medicine Vijay Viveros MD [address] [place] [address] [phone] [facility] Start: 10-12-2020 End: 10-12-2020 Office Visit 10/12/2020 Office Visit Sports Medicine Santiago Bates MD [address] [place] [address] [phone] [facility] Start: 07-13-2020 End: 07-13-2020 Follow-Up 07/13/2020 Follow-Up Sports Medicine Santiago Bates MD [address] [facility] [place] [address] [phone] [facility] Start: 06-22-2020 Influenza vaccinatio n given [facility] Start: 06-15-2020 End: 06-15-2020 Follow-Up 06/15/2020 Follow-Up Sports Santiago England MD [address] [place] [address] [phone] [facility] Start: 05-18-2020 End: 05-18-2020 Follow-Up 05/18/2020 Follow-Up Sports Medicine Santiago Bates MD [address] [place] [address] [phone] [facility] Start: 05-10-2020 End: 05-10-2020 Office Visit 05/10/2020 Office Visit Cardiology Heather Paredes MD [address] [address] [phone] [facility] Office Start: 05-03-2020 End: 05-03-2020 Office Visit 05/03/2020 Office Visit Cardiology Heather Paredes MD [address] [address] [phone] [facility] Office Start: 12-15-2019 End: 12-15-2019 Follow-Up 12/15/2019 Follow-Up Sports Medicine Vijay Viveros MD [address] [address] [phone] [facility] Start: 12-08-2019 End: 12-08-2019 Follow-Up 12/08/2019 Follow-Up Sports Medicine Vijay Viveros MD [address] [facility] [place] [address] [phone] [facility] Start: 11-13-2019 Ultrasound Kid neida Bilateral AA-[facility]wl[facility]ady[facility] Work Phone: Start: 11-06-2019 End: 11-06-2019 Appointment 11/06/2019 Appointment Home Health Services Jenifre Greene RN [facility] Start: 11-03-2019 End: 11-03-2019 Home Care Visit 11/03/2019 Home Care Visit Home Health Services Jenifer Greene RN [facility] Start: 10-31-2019 End: 10-31-2019 Home Care Visit 10/31/2019 Home Care Visit Home Health Services Jenifer Greene RN [facility] Start: 10-27-2019 End: 10-27-2019 Follow-Up 10/27/2019 Follow-Up Sports Medicine Vijay Viveros MD [address] [place] [address] [phone] [facility] Start: 10-27-2019 End: 10-27-2019 Home Care Visit 10/27/2019 Home Care Visit Home Health Services Jenifer Greene RN [facility] Start: 10-24-2019 End: 10-24-2019 Home Care Visit 10/24/2019 Home Care Visit Home Health Services Jenifer Greene RN [facility] Start: 10-20-2019 End: 10-20-2019 Home Care Visit 10/20/2019 Home Care Visit Home Health Services Jenifer Greene RN [facility] Start: 10-17-2019 End: 10-17-2019 Home Care Visit 10/17/2019 Home Care Visit Home Health Services Jenifer Greene RN [facility] Start: 10-13-2019 End: 10-13-2019 Home Care Visit 10/13/2019 Home Care Visit Home Health Services Jenifer Greene RN [facility] Start: 10-10-2019 End: 10-10-2019 Home Care Visit 10/10/2019 Home Care Visit Home Health Services Jenifer Greene RN [facility] Start: 10-06-2019 End: 10-06-2019 Home Care Visit 10/06/2019 Home Care Visit Home Health Services Jenifer Greene RN [facility] Start: 10-03-2019 End: 10-03-2019 Home Care Visit 10/03/2019 Home Care Visit Home Health Services Jenifer Greene RN [facility] Start: 10-02-2019 End: 10-02-2019 Home Care Visit 10/02/2019 Home Care Visit Home Health Services Jenifer Greene RN [facility] Start: 09-29-2019 End: 09-29-2019 Home Care Visit 09/29/2019 Home Care Visit Home Health Services Jenifer Greene RN [facility] Start: 09-26-2019 End: 09-26-2019 Home Care Visit 09/26/2019 Home Care Visit Home Health Services Jenifer Greene RN [facility] Start: 09-25-2019 End: 09-25-2019 Home Care Visit [facility] Start: 09-23-2019 End: 09-23-2019 Follow-Up 09/23/2019 Follow-Up Sports Medicine Vijay Viveros MD [address] [place] [address] [phone] [facility] Start: 09-22-2019 End: 09-22-2019 Home Care Visit [facility] Start: 09-19-2019 End: 09-19-2019 Home Care Visit 09/19/2019 Home Care Visit Home Health Services Jenifer Greene RN [facility] Start: 09-17-2019 End: 09-17-2019 Home Care Visit 09/17/2019 Home Care Visit Home Health Services Clemente Martínez PTA [facility] Start: 09-15-2019 End: 09-15-2019 Home Care Visit 09/15/2019 Home Care Visit Home Health Services Jenifer Greene RN [facility] Start: 09-12-2019 End: 09-12-2019 Appointment 09/12/2019 Appointment Home Health Services Milagro Leal RN [facility] Start: 09-12-2019 End: 09-12-2019 Home Care Visit 09/12/2019 Home Care Visit Home Health Services Chary Mayorga PT [facility] Start: 09-10-2019 End: 09-10-2019 Hospital Encounter 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 [employer] Start: 08-25-2019 End: 08-25-2019 Surgical Consult 08/25/2019 Surgical Consult Sports Medicine Vijay Viveros MD [address] [place] [address] [phone] [facility] Start: 06-22-2019 Influenza vaccinatio n given SEQUENTIAL INFLUENZA VACCINE (#1) [facility] Start: 05-19-2019 End: 05-19-2019 Office Visit 05/19/2019 Office Visit Cardiology Heather Paredes MD [address] [place] [address] [phone] [facility] Office Start: 06-22-2018 Influenza vaccination SEQUENTI AL INFLUENZA VACCINE (#1) [facility] Start: 10-11-2017 Pneumococcal vaccination Pneumococcal Vaccine Age 65+ (2 of 2 - PPSV23) [facility] Start: 2011 Respiratory Syncytia l Virus Immunization: Risk, 60-74 Risk, or 75+ (1 - 1-dose 75+ series) Respiratory Syncytial Virus Immunization: Risk, 60-74 Risk, or 75+ (1 - 1-dose 75+ series) [facility] Start: 2001 Fall risk assessment Falls Risk Asse ssment [facility] Start: 2001 Pneumococcal vaccination PNEUMOCOCCAL VACCINE AGE 65+ (1 of 2 - PCV13) [facility] Start: 1996 RSV patient s and/or patients aged 60+ years (1 - 1-dose 60+ series) RSV patients and/or patients aged 60+ years (1 - 1-dose 60+ series) [facility] Start: 1996 RSV Vaccine (1 - 1-dose 60+ series) RSV Vaccine (1 - 1-dose 60+ series) [facility] Start: 1996 Zoster vaccine hzv live for subcutaneous use ZOSTER VACCINE [facility] Start: 1986 Administration of herpes zoster vaccine Zoster Vaccines (1 of 2) [facility] Start: 1958 DTaP/Tdap/Td Vaccine s (1 - Tdap) DTaP/Tdap/Td Vaccines (1 - Tdap) [facility] Start: 1955 SHINGRIX VACCINE (1 of 2) SHINGRIX VACCINE (1 of 2) [facility] Start: 1955 Urine microalbumin profile [facility] Start: 1948 Adolescent depressio n screening assessment Depression Screening (PHQ9) [facility] Start: 1948 Depression screening using PHQ-9 (Patient Health Questionnaire 9) score [facility] Start: 1942 Pneumococcal Vaccine : Age 65+ (1 of 2 - PPSV23) Pneumococcal Vaccine: Age 65+ (1 of 2 - PPSV23) [facility] Start: 1942 PNEUMOCOCCAL: 65+ (1 - PCV) PNEUMOCOCCAL: 65+ (1 - PCV) [facility] Start: 1939 History and physical examination, annual for health maintenance Wellness Visit [facility] Start: 1936 Depression screening using PHQ-9 (Patient Health Questionnaire 9) score DEPRESSION SCREENING (PHQ9) [facility] Start: 1936 Fall risk assessment Falls Risk Asse ssment [facility] Start: 1936 Medicare Annual Wellness Visit Medicare Annual Wellness Visit (AWV) [facility] Start: 1936 End: 1936 Tetanus vaccination [facility] Comprehensive metabolic 2000 panel Comprehensive Metabolic Panel [facility] Work Phone: Comment on above: Approx [id number] Approx [id number] End: 07-22-2023 ECG 12 lead ECG 12 lead ECG STAT Once for 1 Occurrences starting 07/22/2023 until 07/22/2023 [facility] Service Area Work Phone: Comment on above: Once for 1 Occurrenc es starting 07/22/2023 until 07/22/2023 End: 11-11-2023 ECG 12 lead [facility] Service Area Work Phone: Comment on above: Once for 1 Occurrenc es starting 11/11/2023 until 11/11/2023 End: 11-15-2023 ECG 12 Lead [facility] Service Area Work Phone: Comment on above: Once for 1 Occurrenc es starting 11/15/2023 until 11/15/2023 ECG 12 lead ECG 12 lead ECG STAT 12/07/2023 12:50 PM EST [facility] Work Phone: End: 05-10-2025 ECG 12 lead ECG 12 lead ECG STAT Once for 1 Occurrences starting 05/10/2025 until 05/10/2025 [facility] Service Area Work Phone: Comment on above: Once for 1 Occurrenc es starting 05/10/2025 until 05/10/2025 End: 11-11-2023 Extra Urine Callaway Tube Extra Urine Callaway Tube Lab Timed Once for 1 Occurrences starting 11/11/2023 until 11/11/2023 [facility] Work Phone: Comment on above: Once for 1 Occurrenc es starting 11/11/2023 until 11/11/2023 End: 11-15-2023 Extra Urine Callaway Tube Extra Urine Callaway Tube Lab Timed Once for 1 Occurrences starting 11/15/2023 until 11/15/2023 [facility] Work Phone: Comment on above: Once for 1 Occurrenc es starting 11/15/2023 until 11/15/2023 End: 12-07-2023 Extra Urine Callaway Tube [facility] Work Phone: Comment on above: Once for 1 Occurrenc es starting 12/07/2023 until 12/07/2023 History of cataract extraction History of cataract extraction [facility] History of hernia repair History of hernia repair [facility] History of tonsillectomy History of tonsillectomy and adenoidectomy [facility] End: 09-02-2024 Holter monitor study [facility] Service Area Work Phone: Comment on above: Once for 1 Occurrenc es starting 09/02/2024 until 09/02/2024 End: 05-11-2025 Incentive spirometry Instruct Incentive spirometry Instruct Respiratory Care Routine Once for 1 Occurrences starting 05/11/2025 until 05/11/2025 [facility] Work Phone: Comment on above: Once for 1 Occurrenc es starting 05/11/2025 until 05/11/2025 Lipid panel Lipid Panel [email or web address] [facility] Work Phone: Comment on above: Approx [id number] End: 07-29-2024 MR Lumbar spine WO contrast [facility] Service Area Work Phone: Comment on above: Once for 1 Occurrenc es starting 07/29/2024 until 07/29/2024 End: 07-29-2024 MR Pelvis WO contrast [facility] Service Area Work Phone: Comment on above: Once for 1 Occurrenc es starting 07/29/2024 until 07/29/2024 Procedure on tissue specimen [facility] Comment on above: Release Upon Orderin g for 1 Occurrences starting 09/10/2019, 1 completed End: 11-15-2023 Pulse oximetry, continuous Pulse oximetry, continuous Respiratory Care STAT Continuous until discontinued starting 11/15/2023 [facility] Work Phone: Comment on above: Continuous until dis continued starting 11/15/2023 Serum LDL cholestero l measurement LDL, Direct, Serum [email or web address] Work Phone: Comment on above: Approx [id number] End: 11-11-2023 Urinalysis complete W Reflex Culture panel - Urine [facility] Work Phone: Comment on above: Once (Lab) for 1 Occ urrences starting 11/11/2023 until 11/11/2023 End: 11-15-2023 Urinalysis complete W Reflex Culture panel - Urine [facility] Work Phone: Comment on above: STAT (Lab) for 1 Occ urrences starting 11/15/2023 until 11/15/2023 End: 12-07-2023 Urinalysis complete W Reflex Culture panel - Urine [facility] Service Area Work Phone: Comment on above: Once (Lab) for 1 Occ urrences starting 12/07/2023 until 12/07/2023 End: 05-08-2025 XR Cervical spine 2 or 3 Views [facility] Service Area Work Phone: Comment on above: Once for 1 Occurrenc es starting 05/08/2025 until 05/08/2025 End: 06-12-2024 XR Hip Views [facility] Service Area Work Phone: Comment on above: Once for 1 Occurrenc es starting 06/12/2024 until 06/12/2024 End: 03-27-2024 XR Shoulder - right 2 Views [facility] Service Area Work Phone: Comment on above: Once for 1 Occurrenc es starting 03/27/2024 until 03/27/2024 [facility] NEGATED: Highlighted row has been ruled out! Planned Goals not documented [facility] Work Phone: Immunizations Immunization Date Immunization Notes Care Provider Yoni velazquez 05-10-2025 tetanus toxoid, redu lamar diphtheria toxoid, and acellular pertussis vaccine, adsorbed Santiago Menendez DO Work Phone: [facility] 08-22-2024 Moderna COVID-19 vaccine, 12 years and older (50mcg/0.5mL)(Spikevax) Don Barrera MD Work Phone: [facility] Work Phone: 07-28-2024 RSV, 60 Years And Ol rajni (AREXVY) [facility] Work Phone: 07-07-2024 influenza virus vaccine, unspecified formulation [facility] Work Phone: 08-24-2023 Moderna COVID-19 vaccine, Fall 2022, 12 yeasrs and older (50mcg/0.5mL) Don Barrera MD Work Phone: [facility] Work Phone: 07-16-2023 influenza, high dose seasonal, preservative-free Don Barrera MD Work Phone: [facility] Work Phone: 07-16-2023 influenza virus vaccine, unspecified formulation Eladio Kingsley Jr., DPM Work Phone: [facility] 08-02-2022 Moderna COVID-19 Biv al Booster 50 MCG/0.5ML Intramuscular Suspension Don Barrera Work Phone: [facility] Work Phone: 08-02-2022 Moderna SARS-CoV-2 Vaccination Don Barrera MD Work Phone: [facility] Work Phone: 02-14-2022 Moderna COVID-19 Vaccine 100 MCG/0.5ML Intramuscular Suspension Don Barrera Work Phone: [facility] 09-08-2021 Moderna COVID-19 Vaccine 100 MCG/0.5ML Intramuscular Suspension Don Barrera Work Phone: [facility] Work Phone: 07-19-2021 influenza, high dose seasonal, preservative-free Don Barrera Work Phone: [facility] Work Phone: 07-19-2021 influenza, seasonal, injectable Don Barrera Work Phone: [facility] Work Phone: Comment on above: Series: 07-19-2021 influenza virus vaccine, unspecified formulation Don Barrera MD Work Phone: [facility] Work Phone: 11-24-2020 Moderna COVID-19 Vaccine 100 MCG/0.5ML Intramuscular Suspension Don Barrera MD [facility] Work Phone: Comment on above: Series: 10-27-2020 Moderna COVID-19 Vaccine 100 MCG/0.5ML Intramuscular Suspension Don Barrera MD [facility] Work Phone: Comment on above: Series: 10-11-2020 pneumococcal polysaccharide vaccine, 23 valent; Translations: [Pneumococcal polysaccharide vaccine, 23 valent] Don Barrera MD [facility] Comment on above: Series: 07-26-2020 influenza, high dose seasonal, preservative-free; Translations: [Influenza, high dose seasonal, preservative-free] Don Barrera MD [facility] Work Phone: Comment on above: Series: 10-08-2018 zoster vaccine recombinant Don Barrera Work Phone: [facility] Work Phone: 08-05-2018 zoster vaccine recombinant Don Barrera Work Phone: [facility] Work Phone: 07-25-2018 influenza, high dose seasonal, preservative-free Don Barrera Work Phone: [facility] Work Phone: 10-11-2016 pneumococcal conjuga te vaccine, 13 valent Don Barrera -[facility] Work Phone: Comment on above: Series: 10-04-2009 novel ghptazitd-[id number], preservative-free, injectable Don Barrera Work Phone: [facility] Work Phone: Payers Date Payer Category Payer Medicare supplementa l policy (as second payer) A[employer] [id number] 2015 Miscellaneous or Other A[employer] COMM ERCIAL [id number] 2015 Unknown [id number]. [id number] 2013 Private Health Insurance [facility] AARP SUPPLEMENT [id number] 2013-Present [phone] [address] [place] [address] Indemnity [id number] 2013 Unknown [id number] 2001 Medicare xxxxxxxxxxx [id number] 2001 Medicare [id number] 2001 Medicare [id number]. [id number] 2001 Medicare [id number] 1.13.385. [id number] 2001 Unknown 2001 Medicare [id number] 1936 Unknown [id number] 2.16840.1.850605.3.579. 2. 1936 Unknown [id number] 2.840.1.813893.3.579. 2. 1936 Unknown [id number] 2.840.1.293993.3.579. 2.900 1936 Unknown [id number] 2.840.1.280888.3.579. 2.1068 1936 Unknown [id number] 2.840.1.381936.3.579. 2.1068 1936 Unknown [id number] 2.16840.1.788009.3.579. 2.1068 1936 Unknown [id number] 2.16840.1.277981.3.579. 2.1068 1936 Unknown [id number] 2.16840.1.818770.3.579. 2. 1936 Unknown [id number] 2.16840.1.297835.3.579. 2. 1936 Unknown [id number] 2.16840.1.946641.3.579. 2. 1936 Unknown [id number] 2.16840.1.731879.3.579. 2.903 1936 Unknown [id number] 2.16.840.1.911120.3.579. 2.1243 1936 Unknown [id number] 2.16.840.1.548799.3.579. 2.1243 1936 Unknown [id number] 2.16.840.1.294783.3.579. 2.1243 1936 Unknown [id number] 2.16.840.1.444772.3.579. 2.1243 1936 Unknown [id number] 2.16840.1.095183.3.579. 2.1243 1936 Unknown [id number] 2.16840.1.560767.3.579. 2.1242 1936 Unknown [id number] 2.16840.1.537192.3.579. 2.1242 1936 Unknown [id number] 2.16840.1.514415.3.579. 2.1242 1936 Unknown [id number] 2.16840.1.872747.3.579. 2.1242 1936 Unknown [id number] 2.16840.1.682795.3.579. 2.1242 1936 Unknown [id number]. 2.1242 1935 Unknown [id number] 2.16840.1.641553.3.579. 2.1242 1936 Unknown [id number] 2.16840.1.172108.3.579. 2.1242 1936 Unknown [id number] 2.16.840.1.954317.3.579. 2.1242 1936 Unknown [id number] 2.16.840.1.744462.3.579. 2.1242 1936 Unknown [id number] 2.16.840.1.341088.3.579. 2.903 1936 Unknown [id number] 2.16.840.1.399011.3.579. 2.1245 1936 Unknown [id number] 2.16.840.1.135638.3.579. 2.124 1936 Unknown [id number] 2.16.840.1.072028.3.579. 2.124 1936 Unknown [id number] 2.16.840.1.832324.3.579. 2.124 1936 Unknown [id number] 2.16.840.1.792039.3.579. 2.1245 1936 Unknown [id number] 2.16.840.1.844956.3.579. 2.1245 Social History Date Type Detail Facility Start: 04-22-2018 End: 05-19-2024 Tobacco smoking status NHIS Former smoker [facility] Start: 1935 Sex Assigned At Not on file [facility] Start: 05-31-2016 Tobacco Comment quit 25+yrs ago [facility] Start: 07-14-2019 End: 04-10-2025 Alcohol intake Current non-drinker of alcohol (finding) [facility] Start: 08-19-2019 End: 05-19-2022 Tobacco Comment quit 25+yrs ago pipe [facility] Start: 02-05-2022 End: 11-20-2024 Exposure to SARS-CoV-2 (event) Not sure [facility] Start: 06-15-2020 End: 05-19-2024 Tobacco use and exposure Never used [facility] Start: 11-17-2022 End: 05-11-2025 Former smoker Former smoker [facility] Work Phone: End: 10-22-1962 History of tobacco use Current smoker [facility] End: 10-22-1962 History of tobacco use Cigarette Smoker [facility] Tobacco smoking consumption unknown [facility] Start: 11-17-2022 End: 05-11-2025 Tobacco use panel [facility] Start: 04-28-2019 Gender identity Identifies as male gender (finding) [facility] Start: 04-28-2019 Sexual orientation Heterosexual (kristie hodgson) [facility] Start: 11-18-2014 Tobacco smoking status NHIS Never smoked tobacco [facility] Start: 02-21-2023 End: 05-10-2025 Alcohol intake Ex-drinker (finding) [facility] Start: 1935 Sex Assigned At Male C [facility] Start: 09-15-2022 National Score (1-100), lower number is lower risk 80 [facility] History of tobacco use Pipe Smoker [facility] Work Phone: History of tobacco use Passive smoker [facility] Work Phone: (I/We) worried whether (my/our) food would run out before (I/we) got money to buy more. Never true [facility] Work Phone: In the past 12 months, was there a time when you were not able to pay the mortgage or rent on time? No [facility] Work Phone: NEGATED: Highlighted row - - [facility] Work Phone: Medical Equipment Procedure Code Equipment Code Equipment Original Text Equipment Identifier Dates Cup 54mm Cluster Milian Trident Psl - [id number], [id number] FDA Start: 09-10-2019 Insert 36mm 10de g F Comp X3 Trident - [id number], [id number] FDA Start: 09-10-2019 Stem 127deg Sz6 Fem Accolade Ii - [id number], [id number] FDA Start: 09-10-2019 Head 36mm 5mm V4 0 Fem Lfit Anatomic - [id number], [id number] FDA Start: 09-10-2019 Humeral Insert 3 2 Mm Case [id number] Start: 04-12-2020 Comment on above: Description: Convert ed from [facility]. Please see archived information for full log information. Glenosphere, Concentric, 32mm, Mary Jo X 2mm Thk Case [id number] Start: 04-12-2020 Comment on above: Description: Convert ed from [facility]. Please see archived information for full log information. Clip, Aneurysm, Yasargil, Std, Perm, Fen, 9mm,150g, Ti Case [id number] Start: 04-12-2020 Comment on above: Description: Convert ed from [facility]. Please see archived information for full log information. Screw, Eripheral , 4.5mm X 24mm Case [id number][facility] Start: 04-12-2020 Comment on above: Description: Convert ed from [facility]. Please see archived information for full log information. Screw, Eripheral , 4.5mm X 24mm Case [id number][facility] Start: 04-12-2020 Comment on above: Description: Convert ed from [facility]. Please see archived information for full log information. Humeral Stem Padma e [id number] Start: 04-12-2020 Comment on above: Description: Convert ed from [facility]. Please see archived information for full log information. Screw, Peripheral, 4.5mm X 28mm Case [id number] Start: 04-12-2020 Comment on above: Description: Convert ed from [facility]. Please see archived information for full log information. Baseplate, Gleniod, 28mm Case [id number] Start: 04-12-2020 Comment on above: Description: Convert ed from [facility]. Please see archived information for full log information. Screw, Peripheral, 4.5mm X 16mm Case [id number] Start: 04-12-2020 Comment on above: Description: Convert ed from [facility]. Please see archived information for full log information. Cup, Humeral, 32mm, Mary Jo X 4mm Thk Case [id number] Start: 04-12-2020 Comment on above: Description: Convert ed from [facility]. Please see archived information for full log information. Functional Status Date Assessment Result Facility 05-10-2025 Green - suicide severity rating scale screener - recent [C-SSRS] [facility] Work Phone: NEGATED: Highlighted row Functional performance Functional status health issues are not documented [facility] Work Phone: Mental Status Date Assessment Result Facility NEGATED: Highlighted row Cognitive function [Interpretation] Cognitive status health issues are not documented [facility] Work Phone: Clinical Notes 11-18-2014 to 05-20-2025 Miesha Kelly RN - 05/20/2025 2:01 PM EDDipak Kelly RN - 05/20/2025 9:27 AM EDTBlópez Madrigal, GRAPHIC DESIGN ASSISTANT-CLAIM TAKER - 05/19/2025 4:00 PM EDTJucourtney Guidry, PT - 05/19/2025 2:27 PM EDT Note Date & Type Note Facility 05-20-2025 History of Present illness Narrative 05/20/25 1401 Discharge Planning Expected Discharge Disposition SNF Does the patient need discharge transport arranged? Yes Transitional Care Coordination Progress Note: Per trauma team, pt medically ready for discharge. [facility] can accept pt today. Transport confirmed for 3:30pm, PAM Ramesh notified. Bedside nurse notified, report #[phone] provided. Transport slip delivered to community relations manager. This nurse met with patient at the bedside and notified of acceptance to [facility] and transportation time. Telephone call to pts , notified of the above. Per [facility] support team no [id number] is requires for their swing bed program. DIANNE Amato, concrete pump operator Coordinator Office: [phone] Secure chat via [employer] 05/20/25 0972 Discharge Planning Expected Discharge Disposition SNF Does the patient need discharge transport arranged? Yes Transitional Care Coordination Progress Note: This nurse notified by [facility] liaison (Fatou [phone]) that their SNF can accept pt, stated they offer 1 1/2 to 2 hours of therapy, 5-6 days/ week. Telephone call to pts , agreeable to referral being placed. Referral submitted via [employer]. DIANNE Amato, concrete pump operator Coordinator Office: [phone] Secure chat via [employer] [facility] TRAUMA SERV[facility] - PROGRESS NOTE Patient Name: Fawn Cameron Admit Date: [id number] : 1935 AGE: 89 y.o. 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 LOC (yes/no?): Yes Anticoagulant / Anti-platelet Rx? 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 (1.2 cm) TODAY'S ASSESSMENT AND PLAN OF CARE: # Right parietal SAH # L frontal lobe extra-axial hemorrhage -Repeat CTH 11PM 05/10 stable -Q4h neurochecks -Keppra 500mg BID for total 7 days, completed -restarted ASA 81mg at post bleed day 7 (05/17) # R orbital roof fracture -ENT consulted - non operative -Sinus precautions -ophthalmology consulted - no evidence of muscle entrapment # Bilateral pubic rami fractures with extension into the acetabular wall # Nondisplaced sacral ala fracture on right -Orthopedic consulted - non operative, trial of ambulation with PT/OT -WBAT BLLE #Oropharyngeal dysphagia -failed bedside eval and MBSS; ELECTRICAL AND INSTRUMENTATION MECHANIC rec NPO with ice chips -pt had DHT placed 05/15, feeds advanced to goal (50 ml/hr), pt tolerating with no issues -per speech: MBSS on 05/14, it showed that the majority of his dysphagia is 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 the swallowing issues are baseline in nature and unlikely to improve since they're largely d/t his anatomy -Will have discussion with patient/ family on wishes # Comorbidities # Functional decline -Syncopal work-up: EKG, trop wnl, orthostats + -Geriatrics consulted, recs appreciated > vitamin D 5000 (for 8 weeks then 2000 indefinitely), vitamin B-12 > consider resuming alfazosin -continue home metop, PPI, statin #mild leukocytosis -resolved. No c/f active infection at this time. -NPO with ice chips -PT/OT eval - high intensity, denied acute rehab. give SNF choices. -SW consult for placement -DVT ppx: SCDs, lovenox -GI ppx: Home PPI for GERD Dispo: Pending rehab. Medically ready. Pt. Seen and discussed with Dr. Montoya. Elaine Madrigal, GRAPHIC DESIGN ASSISTANT-CLAIM TAKER Trauma Surgery [id number] Total face to face time spent with patient/family of 20 minutes, with >50% of the time spent discussing plan of care/management, counseling/educating on disease processes, explaining results of diagnostic testing. CHIEF COMPLAINT / OVERNIGHT EVENTS: No acute events overnight. Nurse concerned today dobhoff was not in position. KUB obtained, in correct place, continuing tube feed. MEDICAL HISTORY / ROS: Admission history and ROS reviewed. Pertinent changes as follows: No complaints. PHYSICAL EXAM: Heart Rate: [80-99] Temp: [36.2 C (97.2 F)-37.6 C (99.7 F)] Resp: [15-18] BP: (134-163)/(77-89) SpO2: [89 %-95 %] Physical Exam Constitutional: NAD HENT: Head: Normocephalic. Comments: 3 cm lacerations just above the right brow with [address] face and head otherwise atraumatic, midface stable, no malocclusion Nose: Comments: DHT in place, atraumatic insertion, bridled, tolerating tube feeds at goal Eyes: Extraocular Movements: Extraocular movements intact. Pupils: Pupils are equal, round, and reactive to light. Glasses on Cardiovascular: Rate and Rhythm: Normal rate Pulmonary: Effort: No respiratory distress. On 1L nc Abdominal: General: There is no distension. Palpations: Abdomen is soft. Tenderness: There is no abdominal tenderness. Musculoskeletal: Cervical back: Normal range of motion. Comments: Range of motion decreased bilateral hips due to pain, muscle strength 5/5 bilateral upper and lower extremities Skin: General: Skin is warm. Capillary Refill: Capillary refill takes less than 2 seconds. Comments: Skin tears present on the dorsal right hand/knuckles and forearm without any active bleeding, wrapped with gauze; bilateral forearm ecchymoses Neurological: Mental Status: He is alert. Mental status is at baseline. LABS: Results from last 7 days Lab Units 05/14/25 0645 05/13/25 0705 WBC AUTO x10*3/uL 10.0 12.4* HEMOGLOBIN g/dL 11.3* 10.8* HEMATOCRIT % 35.5* 35.0* PLATELETS AUTO x10*3/uL 175 151 Results from last 7 days Lab Units 05/13/25 0705 SODIUM mmol/L 140 POTASSIUM mmol/L 4.2 CHLORIDE mmol/L 107 CO2 mmol/L 24 BUN mg/dL 22 CREATININE mg/dL 0.62 CALCIUM mg/dL 8.0* GLUCOSE mg/dL 90 I have reviewed all medications, laboratory results, and imaging pertinent for today's encounter. Physical Therapy Physical Therapy Treatment Patient Name: Fawn aCmpos Department: [place] [address] Room: [id number] Today's Date: 05/19/2025 Time Calculation Start Time: 1340 Stop Time: 1410 Time Calculation (min): 30 min Assessment/Plan PT Assessment End of Session Communication: Bedside nurse Assessment Comment: Pt continues to make progress with tolerance to upright mobility. Pt required maxA for transfers and Rajwinder for standing balance. Pt continues to benefit from skilled PT End of Session Patient Position: Bed, 3 rail up, Alarm on PT Plan Inpatient/Swing Bed or Outpatient: Inpatient PT Plan Treatment/Interventions: Bed mobility, Transfer training, Gait training, Stair training, Balance training, Strengthening, Endurance training, Therapeutic exercise, Range of motion, Therapeutic activity, Home exercise program PT Plan: Ongoing PT PT Frequency: 5 times per week PT Discharge Recommendations: High intensity level of continued care Equipment Recommended upon Discharge: (tbd) PT Recommended Transfer Status: Assist x1 PT - OK to Discharge: Yes PT Visit Info: PT Received On: 05/19/25 General Visit Information: General Prior to Session Communication: Bedside nurse Patient Position Received: Bed, 3 rail up, Alarm on General Comment: Pt supine in bed, motivated for PT Subjective Precautions: Precautions LE Weight Bearing Status: Weight Bearing as Tolerated Medical Precautions: Fall precautions Precautions Comment: SBP <160, sinus precautions Objective Pain: Pain Assessment Pain Assessment: 0-10 0-10 (Numeric) Pain Score: 0 - No pain Cognition: Cognition Overall Cognitive Status: Within Functional Limits Arousal/Alertness: Appropriate responses to stimuli Orientation Level: Oriented X4 Activity Tolerance: Activity Tolerance Endurance: Tolerates 10 - 20 min exercise with multiple rests Treatments: Therapeutic Exercise Therapeutic Exercise Performed: Yes Therapeutic Exercise Activity 1: seated: marches, LAQ and AP x 10 ea Therapeutic Activity Therapeutic Activity Performed: Yes Therapeutic Activity 1: Sit <> stand x 2 trials Therapeutic Activity 2: Standing trial 4 minutes with Rajwinder for balance using FWW, cues for weight shifting forward, progressed to lateral weight shifts Balance/Neuromuscular Re-Education Balance/Neuromuscular Re-Education Activity Performed: Yes Balance/Neuromuscular Re-Education Activity 1: sitting EOB 15 minutes total with SBA, required intermittent CGA for R posterior leaning Bed Mobility Bed Mobility: Yes Bed Mobility 1 Bed Mobility 1: Supine to sitting, Sitting to supine Level of Assistance 1: Maximum assistance Bed Mobility Comments 1: HOB elevated Transfers Transfer: Yes Transfer 1 Transfer From 1: Sit to, Stand to Transfer to 1: Stand, Sit Technique 1: Sit to stand, Stand to sit Transfer Device 1: Walker Transfer Level of Assistance 1: Maximum assistance Trials/Comments 1: cues for hand placement Outcome Measures: [facility] Basic Mobility Turning from your back to your side while in a flat bed without using bedrails: A lot Moving from lying on your back to sitting on the side of a flat bed without using bedrails: A lot Moving to and from bed to chair (including a wheelchair): A lot Standing up from a chair using your arms (e.g. wheelchair or bedside chair): A lot To walk in hospital room: A lot Climbing 3-5 steps with railing: Total Basic Mobility - Total Score: 11 Education Documentation Precautions, taught by Jannette Guidry PT at 05/19/2025 2:25 PM. Learner: Patient Readiness: Acceptance Method: Explanation Response: Verbalizes Understanding Comment: PT POC Body Mechanics, taught by Jannette Guidry PT at 05/19/2025 2:25 PM. Learner: Patient Readiness: Acceptance Method: Explanation Response: Verbalizes Understanding Comment: PT POC Mobility Training, taught by Jannette Guidry PT at 05/19/2025 2:25 PM. Learner: Patient Readiness: Acceptance Method: Explanation Response: Verbalizes Understanding Comment: PT POC Education Comments No comments found. OP EDUCATION: Encounter Problems Encounter Problems (Active) PT Problem Pt will perform supine<>sit with SBA (Progressing) Start: 05/11/25 Expected End: 05/25/25 Pt will perform sit<>stand with LRAD and SBA (Progressing) Start: 05/11/25 Expected End: 05/25/25 Pt will ambulate >50ft with LRAD and supervision (Progressing) Start: 05/11/25 Expected End: 05/25/25 Pt will ascend/descend single step with LRAD and SBA (Progressing) Start: 05/11/25 Expected End: 05/25/25 Jannette Guidry PT Subjective No acute events overnight. Failed bedside and barrium swallow on 05/14, now NPO with NG tube at goal for feeds (50cc/hr). Pt working with PT today and said he didn't feel dizzy this time. Denies headache, chest pain, SOB, abdominal pain. States he had a bowel movement today and is urinating well. Pt stated that he slept better last night. Objective Current Medications[1] Physical Exam Constitutional: Appearance: Normal appearance. HENT: Head: Normocephalic. Comments: 3 cm lacerations just above the right brow with [address] Eyes: Extraocular Movements: Extraocular movements intact. Cardiovascular: Rate and Rhythm: Tachycardic and regular rhythm. Pulmonary: Effort: No respiratory distress. Abdominal: General: There is no distension. Palpations: Abdomen is soft. Tenderness: There is no abdominal tenderness. Musculoskeletal: Cervical back: Normal range of motion. Comments: Range of motion decreased bilateral hips due to pain, muscle strength 5/5 bilateral lower extremities Skin: General: Skin is warm. Comments: Skin tears present on the dorsal right hand/knuckles and forearm without any active bleeding, wrapped with gauze; bilateral forearm ecchymoses Confusion Assessment Method(CAM) for diagnosis of delirium: 1. Acute onset or fluctuating course: absent 2. Inattention: absent 3. Disorganized thinking: absent 4. Altered level of consciousness: absent CAM: negative AT Score For Assessment of Delirium and Cognitive Impairment: Alertness: 0 Normal(fully alert,but not agitated, throughout assessment)=0 Mild sleepiness for <10 seconds after walking, then normal=0 Clearly abnormal=4 2. AMT4: 0 No mistakes=0 One mistake=1 Two or more mistakes/untestable=2 3. Attention: 0 Achieves seven months or more correctly=0 Starts but scores <7 months/ refuses to start=1 Untestable(cannot start because unwell, drowsy, inattentive)=2 4. Acute: 0 No=0 Yes=4 Total Score: 0 4 or above: Possible delirium +/- cognitive impairment 1-3: Possible cognitive impairment 0: Delirium or severe cognitive impairment unlikely(but delirium still possible if (4) information incomplete) Last Recorded Vitals 05/19/2025 3:46 AM 05/19/2025 7:48 AM 05/19/2025 7:49 AM 05/19/2025 7:50 AM 05/19/2025 11:37 AM 05/19/2025 11:38 AM 05/19/2025 11:39 AM Vitals Systolic 149 163 163 140 140 Diastolic 79 80 80 77 77 BP Location Right arm Right arm Heart Rate 94 99 97 96 83 84 80 Temp 36.4 C (97.5 F) 37.6 C (99.7 F) 37.3 C (99.1 F) Resp 16 15 16 Vitals: 05/10/257 Weight: 66.2 kg (146 lb) Relevant Results Lab Results Component Value Date TSH 4.88 (H) 05/12/2025 [id number] 283 05/12/2025 VITD25 18 (L) 05/12/2025 Results from last 7 days Lab Units 05/14/25 0645 05/13/25 0705 WBC AUTO x10*3/uL 10.0 12.4* HEMOGLOBIN g/dL 11.3* 10.8* HEMATOCRIT % 35.5* 35.0* SODIUM mmol/L -- 140 POTASSIUM mmol/L -- 4.2 CHLORIDE mmol/L -- 107 CREATININE mg/dL -- 0.62 BUN mg/dL -- 22 CO2 mmol/L -- 24 XR cervical spine 2-3 views Result Date: 05/09/2025 Impression: 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 MACRO: None Signed by: Clement Estevez 05/09/2025 8:28 AM Dictation workstation: [id number] XR abdomen 1 view Narrative: Interpreted By: Oj Regan, STUDY: XR ABDOMEN 1 VIEW; 05/19/2025 11:35 am INDICATION: Signs/Symptoms:eval dobhoff placement. COMPARISON: 05/15/2025. ACCESSION NUMBER(S): [id number] ORDERING CLINICIAN: ELAINE MADRIGAL FINDINGS: Dobbhoff tube overlies the 2nd duodenum. There is contrast in nondistended colonic loops. Limited evaluation of pneumoperitoneum on supine imaging, however no gross evidence of free air is noted. Right midlung atelectasis. Osseous structures demonstrate no acute bony changes. Impression: 1. Dobbhoff tube overlies the 2nd duodenum. Contrast within nondistended colonic loops. Signed by: Oj Regan 05/19/2025 12:02 PM Dictation workstation: [id number] DATA: EKG: QTC Encounter Date: 05/10/25 ECG 12 lead Result Value Ventricular Rate 72 Atrial Rate 72 [place] Interval 190 QRS Duration 104 QT Interval 394 QTC Calculation(Bazett) 431 P [place] 31 R [place] -15 T [place] 44 QRS Count 12 Q Onset 210 P Onset 115 P Offset 178 T Offset 407 QTC Fredericia 418 Narrative Normal sinus rhythm Normal ECG When compared with ECG of 10-MAY-2025 13:54, No significant change was found See ED provider note for full interpretation and clinical correlation Confirmed by Yolanda Garcia ([id number]) on 05/11/2025 3:47:31 AM Anti-psychotics in 48 hours: no Opioids/Benzodiazepines in 48 hours: No Anticholinergics on board: No Restraints:No Indwelling catheters: no Last BM: 05/18 UO in 24 hours: 250 cc Activity in the past 24 hours: Bed-bound Need for ambulatory devices: Unknown Assessment/Plan Fawn Campos is a 89 y.o. male on day 8 of admission presenting with Fall, initial encounter. Principal Problem: Fall, initial encounter Updates 05/19/25: - recommend 3 mg melatonin at bedtime for sleep - recommend getting speech to evaluate again before discharge - Case management working on placement This is a/an 89 y.o. year old male, with past medical history relevant for AAA, infrarenal aneurysm, HTN, HLD, CAD (on ASA) presented after an unwitnessed fall, found to have injuries to the R orbital floor, Mild buckled fracture of the RT anterior cranial floor/orbital roof, Small RT (2 mm) subdural hematoma, Trace right frontal subarachnoid hematoma, Bilateral pubic rami fractures with extension into the acetabular wall, Nondisplaced sacral ala fracture on right. Geriatrics was consulted due to advanced age falls. On 05/14 we discussed the patient's code status. The patient expressed that they would not like compressions or resuscitation if their heart were to stop. They stated that they had discussed this with their before and come to this decision. Patient is agreeable to short term intubation if situation were to arise. Patient's mental status is consistent with having capacity to make decisions regarding code status. Will notify primary trauma surgery team and change code status to DNR in EMR. Acute Fall - cause unclear; orthostasis vs. Arhythmia vs. Autonomia vs. Polypharmacy -Patient currently orthostatic. - orthostats positive: laying BP 128/88 HR 88, sitting BP 138/70 HR 80 - EKG/trops negative on admission, QTC 431, telemetry NSR - Lipid panel normal, no A1c - vit d low at 18; recommend high dose Vit D supplementation at 50,000iu for 8 weeks followed by 2000iu daily indefinitely - ok to hold D supplementation while he is NPO - Hx of being on alendronate, no evidence of osteoporosis/ DEXA Needs to follow-up in the outpatient - monitor pain levels as pt not receiving tylenol while NPO; recommend tylenol via NG, discourage IV pain control unless absolutely necessary as not to delay discharge 2. Polypharmacy - on several home peripheral vasodilators that can cause orthostasis and hypotension (alfuzosin, amlodipine, benazepril, metoprolol) - amitryptyline and alfuzosin are anticholinergic and can cause sedation/ weakness/ hypotension - alfuzosin, amlodipine, benazepril and amitryptyline have been held since admission; continue to hold and DO NOT resume on discharge, except see below for HTN. 3. HTN - alfuzosin, amlodipine, benazepril have been held since admission; continue to hold and DO NOT resume on discharge - BP has been stable - If BP becomes elevated/unstable, consider adding back TRAVIS-i but starting at a lower dose. This will treat both BPH and BP. 4. Constipation - schedule miralax daily. Can be given via a tube if he decides to go with a NGT - titrate to 1BM daily 5. Urinary Retention -not currently on his home med of alfuzosin. Seems to be urinating ok here - recommend continued monitoring / follow up on an OP basis - Urology and PCP. - can consider post-void bladder scan if there is concern for retention 6. Vitamin B12 deficiency, chronic macrocytic anemia - B12 low at 283; recommend supplementation at 1000mg daily. Hold while NPO. 7. Abnormal TSH - TSH 4.88 w/ normal thyroxine 1.15; do not treat or investigate in geriatric population unless TSH >8 Can be rechecked in 6 weeks as an outpatient - agree. 8. Dysphagia Goals of care - Failed barium swallow on 05/14. Severe oropharnygeal dysphagia and risk for aspiration - Speech pathology recommending patient be NPO. - Pt currently has dobbhoff placed. - Current plan is to send to rehab with the dobbhoff and try to wean off the NGT. - Recommend speech sees patient for another swallow study again before discharge 9. Sleep Patient having some trouble sleeping while inpatient - recommend melatonin 3 mg QHS Care Transitions: -Recommended level for discharge: post-acute rehab -Home going considerations: lives alone with -Primary care physician: Don Barrera MD Goals of Care: -Health care power of deputy attorney general: Diya () -Living will: present Code status: DNR. Ok with intubation (if needed in any situation outside of a code) Geriatric medicine will continue to follow the patient. Thank you for allowing geriatric medicine to be involved in the care of your patient. Geriatric medicine consultation team is available during work hours Sunday through Sunday. For any emergency issues requiring immediate assistance over the weekend, please page Geriatrics pager [phone] Analy Cardona MD PGY1 Internal Medicine I saw and evaluated the patient. I personally obtained the de jesus and critical portions of the history and physical exam or was physically present for de jesus and critical portions performed by the resident / med student. I reviewed the resident s / med student's documentation and discussed the patient with them. I agree with the resident's / medical student's medical decision making as documented in their note, which includes my edits. Analy Cardona MD [1] Current Facility-Administered Medications Medication Dose Route Frequency Provider Last Rate Last Admin acetaminophen (Tylenol) tablet 650 mg 650 mg nasoduodenal tube q6h [facility] Rajwinder Omer MD 650 mg at 05/19/25 0923 aspirin chewable tablet 81 mg 81 mg oral Daily Rajwinder Omer MD 81 mg at 05/19/25 0923 bisacodyl (Dulcolax) EC tablet 5 mg 5 mg oral Daily PRN Rajwinder Omer MD cholecalciferol (Vitamin D-3) tablet 125 mcg 125 mcg nasoduodenal tube Daily Rajwinder Omer MD 125 mcg at 05/19/25 0922 cyanocobalamin (Vitamin B-12) tablet 1,000 mcg 1,000 mcg nasoduodenal tube Daily Rajwinder Omer MD 1,000 mcg at 05/19/25 0923 enoxaparin (Lovenox) syringe 30 mg 30 mg subcutaneous q12h [facility] Rajwinder Omer MD 30 mg at 05/19/25 1332 lidocaine 2 % mucosal jelly (Uro-Jet) 1 Application 1 Application Topical Once PRN Rajwinder Omer MD metoprolol tartrate (Lopressor) tablet 12.5 mg 12.5 mg nasoduodenal tube BID Rajwinder Omer MD 12.5 mg at 05/19/25 0923 ondansetron (Zofran) tablet 4 mg 4 mg nasoduodenal tube q8h PRN Rajwinder Omer MD Or ondansetron (Zofran) injection 4 mg 4 mg intravenous q8h PRN Rajwinder Omer MD oxyCODONE (Roxicodone) immediate release tablet 2.5 mg 2.5 mg nasoduodenal tube q6h PRN Rajwinder Omer MD oxyCODONE (Roxicodone) immediate release tablet 5 mg 5 mg nasoduodenal tube q4h PRN Rajwinder Omer MD pantoprazole (ProtoNix) EC tablet 40 mg 40 mg oral Daily before breakfast Rajwinder Omer MD 40 mg at 05/17/25 0810 polyethylene glycol (Glycolax, Miralax) packet 17 g 17 g nasoduodenal tube Daily Rajwinder Omer MD pravastatin (Pravachol) tablet 40 mg 40 mg nasogastric tube Nightly Rajwinder Omer MD 40 mg at 05/18/252056 sennosides (Senokot) tablet 8.6 mg 1 tablet nasoduodenal tube Nightly PRN Rajwinder Omer MD Cosigned by Ania Moyer MD at 05/19/2025 5:30 PM EDT Associated attestation - Ania Moyer MD - 05/19/2025 5:30 PM EDT I saw and evaluated the patient. I personally obtained the de jesus and critical portions of the history and physical exam or was physically present for de jesus and critical portions performed by the resident/fellow. I reviewed the resident/fellow's documentation and discussed the patient with the resident/fellow. I agree with the resident/fellow's medical decision making as documented in the note. 05/19/25 0959 Discharge Planning Expected Discharge Disposition Rehab Does the patient need discharge transport arranged? Yes .Transitional Care Coordination Progress Note: VM to [facility], placed for liaison. Requested an update on acceptance, my contact information provided. Addendum 1130: This nurse notified by [facility] that their MD feels as though pt can't tolerate 3 hours of therapy. Unable to accept at this time. Facility suggested their swing bed program, that offers 1 1/2 to 2 hours of therapy ([facility] # [phone], fax #[phone]). This nurse spoke with pts and notified her of the above. Agreeable to referral being submitted to [facility], SNF list emailed to pts for review. Telephone call to [facility] (Paige BURGESS) confirmed they can accept with a marquise, confirmed bed availability. Referral faxed for review. My contact information provided. Addendum 4082: Telephone call to [facility], spoke with Paige BURGESS, who stated clinicals were not received. Requested that they be faxed to [phone], clinicals faxed. Pts chose SNF FOC via [facility] 1) [facility] 2) [facility] 3) [facility] Referral submitted via [facility]. DIANNE Amato, concrete pump operator Coordinator Office: [phone] Secure chat via [employer] [facility] TRAUMA SERVICE - PROGRESS NOTE Patient Name: Fawn Cameron Admit Date: [id number] : 1935 AGE: 89 y.o. 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 LOC (yes/no?): Yes Anticoagulant / Anti-platelet Rx? 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 (1.2 cm) TODAY'S ASSESSMENT AND PLAN OF CARE: # Right parietal SAH # L frontal lobe extra-axial hemorrhage - Repeat CTH 11PM 05/10 stable - Q4h neurochecks - Keppra 500mg BID for total 7 days (EOT 05/17) - Restarted ASA 81mg at post bleed day 7 (05/17) # R orbital roof fracture - ENT consulted - non operative - Sinus precautions - Ophthalmology consulted - no evidence of muscle entrapment # Bilateral pubic rami fractures with extension into the acetabular wall # Nondisplaced sacral ala fracture on right - Orthopedic consulted - non operative, trial of ambulation with PT/OT - WBAT BLLE #Oropharyngeal dysphagia > failed bedside eval and MBSS; 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 the swallowing issues are baseline in nature and unlikely to improve since they're largely d/t his anatomy - Will have discussion with patient/ family on wishes # Comorbidities # Functional decline - Syncopal work-up: EKG, trop wnl, orthostats + - Geriatrics consulted, recs appreciated > vitamin D 5000 (for 8 weeks then 2000 indefinitely), vitamin B-12 > consider resuming alfazosin - continue home metop, PPI, statin #mild leukocytosis - resolved. No c/f active infection at this time. - NPO with ice chips - PT/OT eval - high intensity - SW consult for placement - DVT ppx: SCDs, lovenox - GI ppx: Home PPI for GERD - Dispo: Pending rehab. Medically ready. Pt. Seen and discussed with Dr. Montoya. Elaine Madrigal, GRAPHIC DESIGN ASSISTANT-CLAIM TAKER Trauma Surgery [id number] Total face to face time spent with patient/family of 20 minutes, with >50% of the time spent discussing plan of care/management, counseling/educating on disease processes, explaining results of diagnostic testing. CHIEF COMPLAINT / OVERNIGHT EVENTS: No acute events overnight. MEDICAL HISTORY / ROS: Admission history and ROS reviewed. Pertinent changes as follows: No complaints this am. PHYSICAL EXAM: Heart Rate: [74-91] Temp: [36 C (96.8 F)-37.4 C (99.3 F)] Resp: [15-16] BP: (132-157)/(68-75) SpO2: [93 %-98 %] Physical Exam Constitutional: NAD HENT: Head: Normocephalic. Comments: 3 cm lacerations just above the right brow with [address] face and head otherwise atraumatic, midface stable, no malocclusion Nose: Comments: DHT in place, atraumatic insertion, bridled Eyes: Extraocular Movements: Extraocular movements intact. Pupils: Pupils are equal, round, and reactive to light. Glasses on Cardiovascular: Rate and Rhythm: Normal rate and regular rhythm. Pulmonary: Effort: No respiratory distress. On 1L nc Abdominal: General: There is no distension. Palpations: Abdomen is soft. Tenderness: There is no abdominal tenderness. Musculoskeletal: Cervical back: Normal range of motion. Comments: Range of motion decreased bilateral hips due to pain, muscle strength 5/5 bilateral upper and lower extremities Skin: General: Skin is warm. Capillary Refill: Capillary refill takes less than 2 seconds. Comments: Skin tears present on the dorsal right hand/knuckles and forearm without any active bleeding, wrapped with gauze; bilateral forearm ecchymoses Neurological: Mental Status: He is alert. Mental status is at baseline. LABS: Results from last 7 days Lab Units 05/14/25 0645 05/13/25 0705 WBC AUTO x10*3/uL 10.0 12.4* HEMOGLOBIN g/dL 11.3* 10.8* HEMATOCRIT % 35.5* 35.0* PLATELETS AUTO x10*3/uL 175 151 Results from last 7 days Lab Units 05/13/25 0705 05/12/25 1139 SODIUM mmol/L 140 139 POTASSIUM mmol/L 4.2 3.5 CHLORIDE mmol/L 107 109* CO2 mmol/L 24 22 BUN mg/dL 22 18 CREATININE mg/dL 0.62 0.66 CALCIUM mg/dL 8.0* 7.2* GLUCOSE mg/dL 90 81 I have reviewed all medications, laboratory results, and imaging pertinent for today's encounter. Occupational Therapy Occupational Therapy Occupational Therapy Treatment Name: Fawn Campos : 1935 Date: 05/18/25 Room: [address] [place] [address] Time Calculation Start Time: 1230 Stop Time: 1305 Time Calculation (min): 35 min Assessment: OT Assessment: Patient demonstrated improvement in bed mobility, grooming this date. He was receptive to instruction and verbalized desire to improve. Patient pleasant and cooperative throughout session. Continued OT indicated. Barriers to Discharge Home: Physical needs Physical Needs: 24hr mobility assistance needed, 24hr ADL assistance needed Medical Staff Made Aware: Yes End of Session Communication: Bedside nurse End of Session Patient Position: Bed, 3 rail up, Alarm on Plan: Treatment Interventions: ADL retraining, Functional transfer training, Endurance training, Cognitive reorientation, UE strengthening/ROM, Patient/family training, Equipment evaluation/education, Compensatory technique education OT Frequency: 3 times per week OT Discharge Recommendations: High intensity level of continued care Equipment Recommended upon Discharge: (tbd) OT Recommended Transfer Status: Maximum assist (of 1-2) OT - OK to Discharge: Yes Subjective General: OT Last Visit OT Received On: 05/18/25 Reason for Referral: fall, +LOC, nondisplaced orbital fx, R frontal SDH, R LC1 pelvic ring injury Past Medical History Relevant to Rehab: s/p L GABO 10y ago at OSH, s/p L rTSA 6y ago at OSH, CAD, TIA, AAA, GERD Prior to Session Communication: Bedside nurse Patient Position Received: Bed, 3 rail up, Alarm on Precautions: LE Weight Bearing Status: Weight Bearing as Tolerated Medical Precautions: Fall precautions, Oxygen therapy device and L/min Precautions Comment: SBP <160, sinus precautions Lines/Tubes/Drains: NG/OG/Feeding Tube Small bore feeding tube 12 Fr Left nostril (Active) Number of days: 2 Cognition: Overall Cognitive Status: Within Functional Limits Arousal/Alertness: Appropriate responses to stimuli Orientation Level: Oriented X4 Pain Assessment: Pain Assessment Pain Assessment: 0-10 0-10 (Numeric) Pain Score: 0 - No pain Objective Activities of Daily Living: Grooming Grooming Level of Assistance: Minimum assistance (to complete oral care, SBA to complete hair brushing) Grooming Where Assessed: Edge of bed Grooming Comments: extended period required for grooming Bed Mobility/Transfers: Bed Mobility Bed Mobility: Yes Bed Mobility 1 Bed Mobility 1: Supine to sitting, Sitting to supine Level of Assistance 1: Moderate assistance, Moderate verbal cues Bed Mobility 2 Bed Mobility 2: Scooting (to edge of bed) Level of Assistance 2: Maximum assistance, Minimal verbal cues Bed Mobility 3 Bed Mobility 3: Scooting (upin bed) Level of Assistance 3: Maximum assistance (of 2) Transfers Transfer: Yes Transfer 1 Transfer From 1: Sit to, Stand to Transfer to 1: Stand, Sit Transfer Device 1: (bear hug) Transfer Level of Assistance 1: Maximum assistance, Moderate verbal cues Balance: Dynamic Sitting Balance Dynamic Sitting-Level of Assistance: Contact guard Dynamic Standing Balance Dynamic Standing-Level of Assistance: Maximum assistance Static Sitting Balance Static Sitting-Level of Assistance: Contact guard Static Standing Balance Static Standing-Level of Assistance: Minimum assistance Outcome Measures: [facility] Daily Activity Putting on and taking off regular lower body clothing: A lot Bathing (including washing, rinsing, drying): A lot Putting on and taking off regular upper body clothing: A lot Toileting, which includes using toilet, bedpan or urinal: A lot Taking care of personal grooming such as brushing teeth: A little Eating Meals: None Daily Activity - Total Score: 15 Education Documentation Body Mechanics, taught by Enid Ng OT at 05/18/2025 2:18 PM. Learner: Patient Readiness: Acceptance Method: Explanation Response: Needs Reinforcement Precautions, taught by Enid Ng OT at 05/18/2025 2:18 PM. Learner: Patient Readiness: Acceptance Method: Explanation Response: Needs Reinforcement ADL Training, taught by Enid Ng OT at 05/18/2025 2:18 PM. Learner: Patient Readiness: Acceptance Method: Explanation Response: Needs Reinforcement Education Comments No comments found. 05/18/25 1230 Inpatient Plan OT Frequency 3 times per week OT Discharge Recommendations High intensity level of continued care OT Recommended Transfer Status Maximum assist (of 1-2) Goals: Encounter Problems Encounter Problems (Active) ADLs Patient will perform UB and LB bathing with stand by assist level of assistance and ae. (Progressing) Start: 05/13/25 Expected End: 06/03/25 Patient with complete upper body dressing with independent level of assistance (Progressing) Start: 05/13/25 Expected End: 06/03/25 Patient with complete lower body dressing with stand by assist level of assistance donning and doffing all LE clothes with PRN adaptive equipment (Progressing) Start: 05/13/25 Expected End: 06/03/25 Patient will complete daily grooming tasks with independent level of assistance (Progressing) Start: 05/13/25 Expected End: 06/03/25 Patient will complete toileting including hygiene clothing management/hygiene with minimal assist level of assistance and lrd. (Progressing) Start: 05/13/25 Expected End: 06/03/25 EXERCISE/STRENGTHENING Patient with increase BUE to wfl strength. (Progressing) Start: 05/13/25 Expected End: 06/03/25 MOBILITY Patient will perform Functional mobility mod Household distances/Community Distances with moderate assist level of assistance and least restrictive device in order to improve safety and functional mobility. (Progressing) Start: 05/13/25 Expected End: 06/03/25 TRANSFERS Patient will perform bed mobility minimal assist level of assistance and bed rails in order to improve safety and independence with mobility (Progressing) Start: 05/13/25 Expected End: 06/03/25 Patient will complete functional transfer least restrictive device with minimal assist level of assistance. (Progressing) Start: 05/13/25 Expected End: 06/03/25 05/18/25 at 2:19 PM Enid Ng OT [phone] Subjective No acute events over the weekend. Failed bedside and barrium swallow on 05/14, now NPO with NG tube at goal for feeds (50cc/hr). Pt stated that he still doesn't remember how he fell. He was working with PT today and said he felt dizzy. Denies headache, chest pain, SOB, abdominal pain. States he had a bowel movement this morning and that it looked normal, although per nurse it looked loose. Objective Current Medications[1] Physical Exam Constitutional: Appearance: Normal appearance. HENT: Head: Normocephalic. Comments: 3 cm lacerations just above the right brow with [address] Eyes: Extraocular Movements: Extraocular movements intact. Cardiovascular: Rate and Rhythm: Normal rate and regular rhythm. Pulmonary: Effort: No respiratory distress. Abdominal: General: There is no distension. Palpations: Abdomen is soft. Tenderness: There is no abdominal tenderness. Musculoskeletal: Cervical back: Normal range of motion. Comments: Range of motion decreased bilateral hips due to pain, muscle strength 5/5 bilateral lower extremities Skin: General: Skin is warm. Capillary Refill: Capillary refill takes less than 2 seconds. Comments: Skin tears present on the dorsal right hand/knuckles and forearm without any active bleeding, wrapped with gauze; bilateral forearm ecchymoses Confusion Assessment Method(CAM) for diagnosis of delirium: 1. Acute onset or fluctuating course: absent 2. Inattention: absent 3. Disorganized thinking: absent 4. Altered level of consciousness: absent CAM: negative AT Score For Assessment of Delirium and Cognitive Impairment: Alertness: 0 Normal(fully alert,but not agitated, throughout assessment)=0 Mild sleepiness for <10 seconds after walking, then normal=0 Clearly abnormal=4 2. AMT4: 0 No mistakes=0 One mistake=1 Two or more mistakes/untestable=2 3. Attention: 0 Achieves seven months or more correctly=0 Starts but scores <7 months/ refuses to start=1 Untestable(cannot start because unwell, drowsy, inattentive)=2 4. Acute: 0 No=0 Yes=4 Total Score: 0 4 or above: Possible delirium +/- cognitive impairment 1-3: Possible cognitive impairment 0: Delirium or severe cognitive impairment unlikely(but delirium still possible if (4) information incomplete) Last Recorded Vitals 05/18/2025 7:58 AM 05/18/2025 7:59 AM 05/18/2025 8:00 AM 05/18/2025 11:05 AM 05/18/2025 11:58 AM 05/18/2025 11:59 AM 05/18/2025 12:00 PM Vitals Systolic 141 141 148 148 Diastolic 72 72 75 75 BP Location Right arm Right arm Heart Rate 86 88 91 85 88 82 86 Temp 37 C (98.6 F) 36.7 C (98.1 F) Resp 15 16 Vitals: 05/10/25 2157 Weight: 66.2 kg (146 lb) Relevant Results Lab Results Component Value Date TSH 4.88 (H) 05/12/2025 [id number] 283 05/12/2025 [id number] 18 (L) 05/12/2025 Results from last 7 days Lab Units 05/14/25 0645 05/13/25 0705 05/12/25 1139 WBC AUTO x10*3/uL 10.0 12.4* -- HEMOGLOBIN g/dL 11.3* 10.8* -- HEMATOCRIT % 35.5* 35.0* -- SODIUM mmol/L -- 140 139 POTASSIUM mmol/L -- 4.2 3.5 CHLORIDE mmol/L -- 107 109* CREATININE mg/dL -- 0.62 0.66 BUN mg/dL -- 22 18 CO2 mmol/L -- 24 22 XR cervical spine 2-3 views Result Date: 05/09/2025 Impression: 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 MACRO: None Signed by: Clement Estevez 05/09/2025 8:28 AM Dictation workstation: [id number] FL modified barium swallow study Narrative: Interpreted By: Antonio Bullock and Nelson Camree STUDY: FL MODIFIED BARIUM SWALLOW STUDY;; 05/14/2025 1:53 pm INDICATION: Signs/Symptoms:R/o aspiration, oropharyngeal dysphagia. COMPARISON: None. ACCESSION NUMBER(S): [id number] ORDERING CLINICIAN: LAY WALDROP TECHNIQUE: MBSS completed. Informed verbal consent obtained prior to completion of exam. Trials of thin, nectar thick, honey thick, puree, soft-solids, and regular solids given. ELECTRICAL AND INSTRUMENTATION MECHANIC: Shannon Santos Phone/Pager: [phone] SPEECH FINDINGS: Speech-Language Pathology Inpatient Modified Barium Swallow Study Patient Name: Fawn Campos : 1935 Today's Date: 05/14/25 Start Time: 1300 Stop Time: 1335 Time Calculation (min): 35 Modified Barium Swallow Study completed. Informed verbal consent obtained prior to completion of exam. Trials of thin liquids via tsp/straw, mildly (nectar) thick liquids via tsp/straw, moderately (honey) thick liquids via tsp/straw, purees, and regular solids were given. 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 Respiratory Status: Nasal cannula Current diet: NPO w/ no means of nutrition/hydration Pain: Pain Scale: 0-10 Ratin DIET RECOMMENDATIONS: NPO with frequent aggressive oral care. 10 ice chips/hr allowed for pleasure, safe swallow stimulation, and after oral care to prevent buildup of bacteria within the oropharynx Question need for GOC discussions re: assuming the risk of aspiration w/ continued PO intake ELECTRICAL AND INSTRUMENTATION MECHANIC PLAN: Skilled ELECTRICAL AND INSTRUMENTATION MECHANIC Services: Skilled ELECTRICAL AND INSTRUMENTATION MECHANIC intervention for dysphagia is warranted. ELECTRICAL AND INSTRUMENTATION MECHANIC Frequency: pending GOC decisions made Discussed POC: patient Discussed Risks/Benefits: Yes Patient/Caregiver Agreeable: Yes Short term goals established: Pt/caregiver/family will demonstrate adequate return of knowledge re: dysphagia POC/diet recommendations/safe swallowing guidelines w/ 100% acc to effectively assist the patient in immediate safety with oral intake and swallowing. Start Date: 05/14/2025 End Date: 06/14/2025 Status: Progressing Pt will tolerate least restrictive diet with no overt clinical s/s aspiration 100% of the time. Start Date: 05/14/2025 End Date: 06/14/2025 Status: Not Progressing Education Provided: Results and recommendations per MBSS, with video review; recommendations and POC at this time. Verbal understanding and agreement given on all accounts. Treatment Provided Today: ELECTRICAL AND INSTRUMENTATION MECHANIC provided extensive education and training to pt/pt family regarding anatomy/physiology of swallow function, risk factors of aspiration/aspiration pna & how to mitigate factors, diet modifications, and the use of compensatory swallow strategies to promote pt safety upon PO intake. Additional Medical Consults Suggested: GOC Mechanics of the Swallow Summary: ORAL PHASE: Lip Closure - Intact Tongue Control During Bolus Hold - Intact Bolus prep/mastication - Impaired Bolus transport/lingual motion - Impaired Oral residue - present PHARYNGEAL PHASE: Initiation of pharyngeal swallow - Impaired Soft palate elevation - Intact Laryngeal elevation - Intact Anterior hyoid excursion - Impaired Epiglottic movement - Impaired Laryngeal vestibule closure - Impaired Pharyngeal stripping wave - Intact Pharyngeal contraction (A/P view) - Not tested Pharyngoesophageal segment opening - Impaired Tongue base retraction - Impaired Pharyngeal residue - present ESOPHAGEAL PHASE: Esophageal clearance - Intact *Of note: The A-P bolus follow-through is not intended to be utilized as a diagnostic assessment of the esophagus, rather a tool to observe the biomechanical aspects of the swallow continuum and to inform the need for further evaluation by medical specialists, as applicable. ELECTRICAL AND INSTRUMENTATION MECHANIC Impressions with Severity Rating: Pt awake/alert, consistently cooperative/able to follow commands, and responded appropriately to conversation/questions by ELECTRICAL AND INSTRUMENTATION MECHANIC. Missing dentition noted. Severe oropharyngeal dysphagia. Prolonged mastication of small bites regular solids 2/2 missing dentition. Lingual pumping and piecemeal swallow w/ all consistencies. 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 Impairments most impacting swallow function include delayed pharyngeal swallow initiation, incomplete epiglottic inversion/laryngeal vestibular closure (2/2 ? cervical lordosis), and reduced pharyngeal constriction/UES opening (2/2 ? cervical lordosis). Reduced pharyngeal squeeze/UES opening resulted in significant amount residue remaining in valleculae/pyriforms w/ all consistencies; pt independently swallowed >4x per bolus in effort to achieve oral clearance w/ inconsistent success. With subsequent swallows, incomplete epiglottic inversion/laryngeal vestibular closure resulted in SILENT aspiration of pharyngeal residue w/ ALL liquid consistencies after the swallow. Pt did not sense aspiration and made no independent effort to clear; cued coughs largely unsuccessful in clearing material from airway. Trialed chin tuck w/ mildly (nectar) thick liquids w/ initial success in airway closure; however, eventual SILENT aspiration persisted given incomplete laryngeal vestibular closure. Initial success w/ moderately (honey) thick liquids via straw though eventual aspiration 2/2 delayed pharyngeal swallow initiation. No further trials given 2/2 severity of swallow function. Pt not appropriate for PO diet given severity of swallow function. Recommend NPO w/ frequent aggressive oral care. 10 ice chips per hour allowed w/ nursing for pleasure, safe swallow stimulation, and after oral care to prevent buildup of bacteria within the oropharynx. 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 Given baseline anatomical deficits, suspect pt's swallow rehabilitation prognosis is poor + pt will remain at risk for aspiration regardless of any further evaluation/instrumental assessment. Therefore, question need for ongoing GOC discussions re: accepting risk of aspiration with oral intake. aware. Amirah's Penetration Aspiration Scale Thin Liquids: 8. SILENT ASPIRATION - contrast passes glottis, visible residue, NO pt response After the Swallow Kemmerer Thick Liquids: 8. SILENT ASPIRATION - contrast passes glottis, visible residue, NO pt response After the Swallow Honey Thick Liquids: 8. SILENT ASPIRATION - contrast passes glottis, visible residue, NO pt response, After the Swallow Puree: 2. PENETRATION that CLEARS - contrast enter airway, above vocal cords, no residue Solids: 1. NO ASPIRATION & NO PENETRATION - no aspiration, contrast does not enter airway Speech Therapy section of this report signed by Shannon Santos on 05/14/2025 at 3:04 pm. RADIOLOGY FINDINGS: Dental fillings present. Mild endplate changes in the included lateral images of the cervical spine. Provided esophageal sweep images are nondiagnostic. Further assessment with full diagnostic esophagram may be obtained if there is clinical concern for esophageal abnormalities. Radiology section of this report signed by Dr. Antonio Lane. Impression: 1. Please refer to detailed swallow study evaluation by speech pathologist. 2. No radiographic evidence of acute osseous abnormality within limits of current examination. I personally reviewed the images/study and I agree with the findings as stated by Prakash Jorge MD (plant operations vice president). This study was interpreted at [place], [place]. MACRO: None Signed by: Antonio Lane 05/16/2025 4:02 PM Dictation workstation: [id number] XR abdomen 1 view Narrative: Interpreted By: Michelle Hodges and Ritchie Brandon STUDY: XR ABDOMEN 1 VIEW; 05/15/2025 5:16 pm INDICATION: Signs/Symptoms:Confirm DHT placement. COMPARISON: CT chest abdomen pelvis 05/10/2025. ACCESSION NUMBER(S): [id number] ORDERING CLINICIAN: LAY WALDROP FINDINGS: Dobbhoff tube courses midline below the level of the diaphragm with the tip projecting over the expected position of the proximal duodenum. Nonobstructive bowel gas pattern. There is positive contrast in the right hemiabdomen, likely within the ascending colon. Limited evaluation of pneumoperitoneum on supine imaging, however no gross evidence of free air is noted. Linear opacity in the right mid lung zone likely atelectasis. Otherwise the lung bases appear clear without pleural effusions. Osseous structures demonstrate no acute bony changes. Impression: 1. Dobbhoff tube with the tip projecting over the expected position of the proximal duodenum. 2. Nonobstructive bowel-gas pattern. 3. Linear opacity in the right mid/lower lung zone, likely atelectatic change. I personally reviewed the images/study and I agree with the findings as stated by resident Freedom Luna. This study was interpreted at [place], [place]. MACRO: None Signed by: Michelle Blackwell 05/16/2025 6:04 AM Dictation workstation: [id number] DATA: EKG: QTC Encounter Date: 05/10/25 ECG 12 lead Result Value Ventricular Rate 72 Atrial Rate 72 [place] Interval 190 QRS Duration 104 QT Interval 394 QTC Calculation(Bazett) 431 P [place] 31 R [place] -15 T [place] 44 QRS Count 12 Q Onset 210 P Onset 115 P Offset 178 T Offset 407 QTC Fredericia 418 Narrative Normal sinus rhythm Normal ECG When compared with ECG of 10-MAY-2025 13:54, No significant change was found See ED provider note for full interpretation and clinical correlation Confirmed by Yolanda Garcia ([id number]) on 05/11/2025 3:47:31 AM Anti-psychotics in 48 hours: no Opioids/Benzodiazepines in 48 hours: No Anticholinergics on board: No Restraints:No Indwelling catheters: no Last BM: 05/18 UO in 24 hours: 250 cc Activity in the past 24 hours: Bed-bound Need for ambulatory devices: Unknown Assessment/Plan Fawn Campos is a 89 y.o. male on day 7 of admission presenting with Fall, initial encounter. Principal Problem: Fall, initial encounter This is a/an 89 y.o. year old male, with past medical history relevant for AAA, infrarenal aneurysm, HTN, HLD, CAD (on ASA) presented after an unwitnessed fall, found to have injuries to the R orbital floor, Mild buckled fracture of the RT anterior cranial floor/orbital roof, Small RT (2 mm) subdural hematoma, Trace right frontal subarachnoid hematoma, Bilateral pubic rami fractures with extension into the acetabular wall, Nondisplaced sacral ala fracture on right. Geriatrics was consulted due to advanced age falls. On 05/14 we discussed the patient's code status. The patient expressed that they would not like compressions or resuscitation if their heart were to stop. They stated that they had discussed this with their before and come to this decision. Patient is agreeable to short term intubation if situation were to arise. Patient's mental status is consistent with having capacity to make decisions regarding code status. Will notify primary trauma surgery team and change code status to DNR in EMR. Acute Fall - cause unclear; orthostasis vs. Arhythmia vs. Autonomia vs. Polypharmacy -Patient currently orthostatic. - orthostats positive: laying BP 128/88 HR 88, sitting BP 138/70 HR 80 - EKG/trops negative on admission, QTC 431, telemetry NSR - Lipid panel normal, no A1c - vit d low at 18; recommend high dose Vit D supplementation at 50,000iu for 8 weeks followed by 2000iu daily indefinitely - ok to hold D supplementation while he is NPO - Hx of being on alendronate, no evidence of osteoporosis/ DEXA Needs to follow-up in the outpatient - monitor pain levels as pt not receiving tylenol while NPO; recommend tylenol via NG, discourage IV pain control unless absolutely necessary as not to delay discharge 2. Polypharmacy - on several home peripheral vasodilators that can cause orthostasis and hypotension (alfuzosin, amlodipine, benazepril, metoprolol) - amitryptyline and alfuzosin are anticholinergic and can cause sedation/ weakness/ hypotension - alfuzosin, amlodipine, benazepril and amitryptyline have been held since admission; continue to hold and DO NOT resume on discharge, except see below for HTN. 3. HTN - alfuzosin, amlodipine, benazepril have been held since admission; continue to hold and DO NOT resume on discharge - BP has been stable - If BP becomes elevated/unstable, consider adding back TRAVIS-i but starting at a lower dose. This will treat both BPH and BP. 4. Constipation - schedule miralax daily. Can be given via a tube if he decides to go with a NGT - titrate to 1BM daily 5. Urinary Retention -not currently on his home med of alfuzosin. Seems to be urinating ok here - recommend continued monitoring / follow up on an OP basis - Urology and PCP. - can consider post-void bladder scan if there is concern for retention 6. Vitamin B12 deficiency, chronic macrocytic anemia - B12 low at 283; recommend supplementation at 1000mg daily. Hold while NPO. 7. Abnormal TSH - TSH 4.88 w/ normal thyroxine 1.15; do not treat or investigate in geriatric population unless TSH >8 Can be rechecked in 6 weeks as an outpatient - agree. 8. Dysphagia Goals of care - Failed barium swallow on 05/14. Severe oropharnygeal dysphagia and risk for aspiration - Speech pathology recommending patient be NPO. - Pt currently has dobbhoff placed. - Current plan is to send to rehab with the dobbhoff and try to wean off the NGT. - Recommend speech sees patient for another swallow study again before discharge 9. Sleep Patient having some trouble sleeping while inpatient - recommend melatonin 5 mg QHS Care Transitions: -Recommended level for discharge: post-acute rehab -Home going considerations: lives alone with -Primary care physician: Don Barrera MD Goals of Care: -Health care power of deputy attorney general: Diya () -Living will: present Code status: DNR. Ok with intubation (if needed in any situation outside of a code) Geriatric medicine will continue to follow the patient. Thank you for allowing geriatric medicine to be involved in the care of your patient. Geriatric medicine consultation team is available during work hours Sunday through Sunday. For any emergency issues requiring immediate assistance over the weekend, please page Geriatrics pager [phone] Analy Cardona MD PGY1 Internal Medicine I saw and evaluated the patient. I personally obtained the de jesus and critical portions of the history and physical exam or was physically present for de jesus and critical portions performed by the resident / med student. I reviewed the resident s / med student's documentation and discussed the patient with them. I agree with the resident's / medical student's medical decision making as documented in their note, which includes my edits. Analy Cardona MD [1] Current Facility-Administered Medications Medication Dose Route Frequency Provider Last Rate Last Admin acetaminophen (Tylenol) tablet 650 mg 650 mg nasoduodenal tube q6h [facility] Rajwinder Omer MD 650 mg at 05/18/25 0910 aspirin chewable tablet 81 mg 81 mg oral Daily Rajwinder Omer MD 81 mg at 05/18/25 0910 bisacodyl (Dulcolax) EC tablet 5 mg 5 mg oral Daily PRN Rajwinder Omer MD cholecalciferol (Vitamin D-3) tablet 125 mcg 125 mcg nasoduodenal tube Daily Rajwinder Omer MD 125 mcg at 05/18/25 0910 cyanocobalamin (Vitamin B-12) tablet 1,000 mcg 1,000 mcg nasoduodenal tube Daily Rajwinder Omer MD 1,000 mcg at 05/18/25 0910 enoxaparin (Lovenox) syringe 30 mg 30 mg subcutaneous q12h [facility] Rajwinder Omer MD 30 mg at 05/18/25 1335 lidocaine 2 % mucosal jelly (Uro-Jet) 1 Application 1 Application Topical Once PRN Rajwinder Omer MD metoprolol tartrate (Lopressor) tablet 12.5 mg 12.5 mg nasoduodenal tube BID Rajwinder Omer MD 12.5 mg at 05/18/25 0910 ondansetron (Zofran) tablet 4 mg 4 mg nasoduodenal tube q8h PRN Rajwinder Omer MD Or ondansetron (Zofran) injection 4 mg 4 mg intravenous q8h PRN Rajwinder Omer MD oxyCODONE (Roxicodone) immediate release tablet 2.5 mg 2.5 mg nasoduodenal tube q6h PRN Rajwinder Omer MD oxyCODONE (Roxicodone) immediate release tablet 5 mg 5 mg nasoduodenal tube q4h PRN Rajwinder Omer MD pantoprazole (ProtoNix) EC tablet 40 mg 40 mg oral Daily before breakfast Rajwinder Omer MD 40 mg at 05/17/25 0810 polyethylene glycol (Glycolax, Miralax) packet 17 g 17 g nasoduodenal tube Daily Rajwinder Omer MD pravastatin (Pravachol) tablet 40 mg 40 mg nasogastric tube Nightly Rajwinder Omer MD 40 mg at 05/17/25 2102 sennosides (Senokot) tablet 8.6 mg 1 tablet nasoduodenal tube Nightly PRN Rajwinder Omer MD Cosigned by Ania Moyer MD at 05/18/2025 5:51 PM EDT Associated attestation - Ania Moyer MD - 05/18/2025 5:51 PM EDT I saw and evaluated the patient. I personally obtained the de jesus and critical portions of the history and physical exam or was physically present for de jesus and critical portions performed by the resident/fellow. I reviewed the resident/fellow's documentation and discussed the patient with the resident/fellow. I agree with the resident/fellow's medical decision making as documented in the note. 05/18/25 1118 Discharge Planning Expected Discharge Disposition Rehab Does the patient need discharge transport arranged? Yes Transitional Care Coordination Progress Note: Plan per Medical/Surgical team: Pt failed bedside eval and MBS, DHT placed. Discharge Disposition: Acute rehab Potential Barriers: none Patient Class: Inpatient Financial Class: Medicare A/B ADOD: 05/19 PHARMACOVIGILANCE SAFETY EXPERT [place] notified that per [facility] [place], facility is unable to accept pt with a marquise. Per PHARMACOVIGILANCE SAFETY EXPERT no plan for PEG at this time, this nurse awaiting plan for follow up. VM to pts second [facility], my contact provided. Telephone call to pts , notified of the above. Pts requested that refferal be sent to [facility]. Addendum 1521: Telephone call to [facility] admissions nurse who confirmed she received clinical information. Stated she'd review. My contact information provided. DIANNE Amato, concrete pump operator Coordinator Office: [phone] Secure chat via [employer] Physical Therapy Physical Therapy Treatment Patient Name: Fawn Campos Department: [place] [address] Room: [id number] Today's Date: 05/18/2025 Time Calculation Start Time: 1105 Stop Time: 1147 Time Calculation (min): 42 min Assessment/Plan PT Assessment Barriers to Discharge Home: Caregiver assistance, Physical needs Caregiver Assistance: Caregiver assistance needed per identified barriers - however, level of patient's required assistance exceeds assistance available at home Physical Needs: Stair navigation into home limited by function/safety, Ambulating household distances limited by function/safety, High falls risk due to function or environment, Intermittent mobility assistance needed Evaluation/Treatment Tolerance: Patient limited by pain Medical Staff Made Aware: Yes Strengths: Premorbid level of function, Attitude of self Barriers to Participation: Comorbidities End of Session Communication: Physician, Bedside nurse Assessment Comment: Pt upright standing tolerance improved this date evidenced by ability to perform 3 STS and progress session to include steps at bedside. However, pt continues to be limited by pain, decreased endurance, and inability to achieve upright without assist. Pt reports he is motivated to obtain PLOF and agreeable to SNF stay. End of Session Patient Position: Bed, 3 rail up, Alarm on PT Plan Inpatient/Swing Bed or Outpatient: Inpatient PT Plan Treatment/Interventions: Bed mobility, Transfer training, Gait training, Stair training, Balance training, Strengthening, Endurance training, Therapeutic exercise, Range of motion, Therapeutic activity, Home exercise program PT Plan: Ongoing PT PT Frequency: 5 times per week PT Discharge Recommendations: High intensity level of continued care Equipment Recommended upon Discharge: (tbd) PT Recommended Transfer Status: Assist x1 PT - OK to Discharge: Yes PT Visit Info: PT Received On: 05/18/25 Response to Previous Treatment: Patient with no complaints from previous session. General Visit Information: General Family/Caregiver Present: No Prior to Session Communication: Bedside nurse Patient Position Received: Bed, 3 rail up, Alarm on General Comment: Pt supine in bed, pleasant and agreeable to PT, expressing concerns about current state of functional mobility level Subjective Precautions: Precautions LE Weight Bearing Status: Weight Bearing as Tolerated Medical Precautions: Fall precautions, Oxygen therapy device and L/min Precautions Comment: SBP <160, sinus precautions Date/Time Vitals Session Patient Position Pulse Resp SpO2 BP MAP (mmHg) 05/18/25 1105 During PT -- 85 -- 97 % -- -- 05/18/25 1158 -- -- 88 -- 96 % 148/75 99 05/18/25 1159 -- -- 82 16 95 % 148/75 99 05/18/25 1200 -- -- 86 -- 96 % -- -- Objective Pain: Pain Assessment Pain Assessment: 0-10 0-10 (Numeric) Pain Score: 4 Pain Type: Acute pain Pain Location: Hip Pain Orientation: Left Pain Interventions: Repositioned (mobility) Response to Interventions: No change in pain Cognition: Cognition Orientation Level: Oriented X4 Coordination: Movements are Fluid and Coordinated: Yes Postural Control: Postural Control Postural Control: Impaired Posture Comment: forward flexed posture upon stand, verbal and tactile cues to obtain upright Static Sitting Balance Static Sitting-Balance Support: Feet supported, Bilateral upper extremity supported Static Sitting-Level of Assistance: Close supervision Static Sitting-Comment/Number of Minutes: EOB ~ 15 minutes Dynamic Sitting Balance Dynamic Sitting-Balance Support: Feet supported (varying unilateral UE support) Dynamic Sitting-Level of Assistance: Close supervision Dynamic Sitting-Balance: Reaching across midline Dynamic Sitting-Comments: pt able to perform trunk control activities with bilateral UE support with distant supervision Static Standing Balance Static Standing-Balance Support: Bilateral upper extremity supported (FWW) Static Standing-Level of Assistance: Minimum assistance, Moderate assistance (min of 1, mod of 1) Static Standing-Comment/Number of Minutes: mod A for forward weight shift and to obtain upright in standing Activity Tolerance: Activity Tolerance Endurance: Tolerates 10 - 20 min exercise with multiple rests Treatments: Therapeutic Exercise Therapeutic Exercise Performed: Yes Therapeutic Exercise Activity 1: seated trunk extensions 2 x 10 Therapeutic Activity Therapeutic Activity Performed: Yes Therapeutic Activity 1: sit <>stand x 3, rocking for forward weight shift, increased time Bed Mobility 1 Bed Mobility 1: Supine to sitting Level of Assistance 1: Moderate assistance Bed Mobility Comments 1: HOB elevated Bed Mobility 2 Bed Mobility 2: Sitting to supine Level of Assistance 2: Moderate assistance (mod of 2 for BLEs and trunk) Bed Mobility Comments 2: HOB elevated Bed Mobility 3 Bed Mobility 3: Scooting Level of Assistance 3: Dependent Ambulation/Gait Training Ambulation/Gait Training Performed: Yes Ambulation/Gait Training 1 Surface 1: Level tile Device 1: Rolling walker Assistance 1: Maximum assistance, Maximum verbal cues Quality of Gait 1: Antalgic, Forward flexed posture, Shuffling gait, Decreased step length, Diminished heel strike, Narrow base of support (pt with increased difficutly clearing bilateral feet this date to advance LEs) Comments/Distance (ft) 1: ~5 steps forward and backward steps at bedside (increased time and cues) Transfers Transfer: Yes Transfer 1 Transfer From 1: Sit to, Stand to Transfer to 1: Stand, Sit Technique 1: Sit to stand, Stand to sit Transfer Device 1: Walker Transfer Level of Assistance 1: Moderate assistance, Minimum assistance (min of 1 + mod of 1) Trials/Comments 1: cues for hand placement on FWW, forward weight shift, upright posture Stairs Stairs: No Outcome Measures: [facility] Basic Mobility Turning from your back to your side while in a flat bed without using bedrails: A lot Moving from lying on your back to sitting on the side of a flat bed without using bedrails: A lot Moving to and from bed to chair (including a wheelchair): A lot Standing up from a chair using your arms (e.g. wheelchair or bedside chair): A lot To walk in hospital room: A lot Climbing 3-5 steps with railing: Total Basic Mobility - Total Score: 11 Education Documentation Body Mechanics, taught by Jannette Guidry PT at 05/18/2025 12:37 PM. Learner: Patient Readiness: Acceptance Method: Explanation, Demonstration Response: Verbalizes Understanding Comment: safety and sequencing with all functional mobility Precautions, taught by Jannette Guidry PT at 05/18/2025 12:37 PM. Learner: Patient Readiness: Acceptance Method: Explanation, Demonstration Response: Verbalizes Understanding Comment: safety and sequencing with all functional mobility ADL Training, taught by Jannette Guidry PT at 05/18/2025 12:37 PM. Learner: Patient Readiness: Acceptance Method: Explanation, Demonstration Response: Verbalizes Understanding Comment: safety and sequencing with all functional mobility Precautions, taught by Jannette Guidry PT at 05/18/2025 12:37 PM. Learner: Patient Readiness: Acceptance Method: Explanation, Demonstration Response: Verbalizes Understanding Comment: safety and sequencing with all functional mobility Body Mechanics, taught by Jannette Guidry PT at 05/18/2025 12:37 PM. Learner: Patient Readiness: Acceptance Method: Explanation, Demonstration Response: Verbalizes Understanding Comment: safety and sequencing with all functional mobility Mobility Training, taught by Jannette Guidry PT at 05/18/2025 12:37 PM. Learner: Patient Readiness: Acceptance Method: Explanation, Demonstration Response: Verbalizes Understanding Comment: safety and sequencing with all functional mobility Education Comments No comments found. OP EDUCATION: Encounter Problems Encounter Problems (Active) PT Problem Pt will perform supine<>sit with SBA (Progressing) Start: 05/11/25 Expected End: 05/25/25 Pt will perform sit<>stand with LRAD and SBA (Progressing) Start: 05/11/25 Expected End: 05/25/25 Pt will ambulate >50ft with LRAD and supervision (Progressing) Start: 05/11/25 Expected End: 05/25/25 Pt will ascend/descend single step with LRAD and SBA (Progressing) Start: 05/11/25 Expected End: 05/25/25 [facility] TRAUMA SERV[facility] - PROGRESS NOTE Patient Name: Fawn Cameron Admit Date: [id number] : 1935 AGE: 89 y.o. 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 LOC (yes/no?): Yes Anticoagulant / Anti-platelet Rx? 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 (1.2 cm) TODAY'S ASSESSMENT AND PLAN OF CARE: # Right parietal SAH # L frontal lobe extra-axial hemorrhage - Repeat CTH 11PM 05/10 stable - Q4h neurochecks - Keppra 500mg BID for total 7 days (EOT 05/17) - Ok to restart ASA 81mg at post bleed day 7 (05/17) # R orbital roof fracture - ENT consulted - non operative - Sinus precautions - Ophthalmology consulted - no evidence of muscle entrapment # Bilateral pubic rami fractures with extension into the acetabular wall # Nondisplaced sacral ala fracture on right - Orthopedic consulted - non operative, trial of ambulation with PT/OT - WBAT BLLE #Oropharyngeal dysphagia > failed bedside eval and MBSS; 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 # Comorbidities # Functional decline - Syncopal work-up: EKG, trop wnl, orthostats + - Geriatrics consulted, recs appreciated > vitamin D 5000 (for 8 weeks then 2000 indefinitely), vitamin B-12 > consider resuming alfazosin if e/o retention on bladder scan - continue home metop, PPI, statin #mild leukocytosis - resolved. No c/f active infection at this time. - NPO with ice chips - PT/OT eval - high intensity - SW consult for placement - DVT ppx: SCDs, lovenox - GI ppx: Home PPI for GERD - Dispo: [facility] care, pending acute rehab. DHT placed, medically ready. Seen and d/w attending, Dr. Bravo Omer MD PGY-1, Trauma Surgery CHIEF COMPLAINT / OVERNIGHT EVENTS: NAEON. Vitally stable. Doing overall well. Some pain his throat from his tube, but tolerable. Tolerating feeds with no concerns, no nausea or vomiting. Overall no new issues or complaints. MEDICAL HISTORY / ROS: Admission history and ROS reviewed. Pertinent changes as follows: None PHYSICAL EXAM: Heart Rate: [76-90] Temp: [35.6 C (96.1 F)-37 C (98.6 F)] Resp: [15-17] BP: (134-172)/(69-89) SpO2: [90 %-96 %] Physical Exam Vitals and nursing note reviewed. Constitutional: Appearance: Normal appearance. HENT: Head: Normocephalic. Comments: 3 cm lacerations just above the right brow with [address] face and head otherwise atraumatic, midface stable, no malocclusion Nose: Comments: DHT in place, atraumatic insertion Eyes: Extraocular Movements: Extraocular movements intact. Pupils: Pupils are equal, round, and reactive to light. Cardiovascular: Rate and Rhythm: Normal rate and regular rhythm. Pulmonary: Effort: No respiratory distress. Abdominal: General: There is no distension. Palpations: Abdomen is soft. Tenderness: There is no abdominal tenderness. Musculoskeletal: Cervical back: Normal range of motion. Comments: Range of motion decreased bilateral hips due to pain, muscle strength 5/5 bilateral upper and lower extremities Skin: General: Skin is warm. Capillary Refill: Capillary refill takes less than 2 seconds. Comments: Skin tears present on the dorsal right hand/knuckles and forearm without any active bleeding, wrapped with gauze; bilateral forearm ecchymoses Neurological: Mental Status: He is alert. Mental status is at baseline. IMAGING SUMMARY: (summary of new imaging findings, not a copy of dictation) None LABS: Results from last 7 days Lab Units 05/14/25 0645 05/13/25 0705 05/11/25 0431 05/10/25 1422 WBC AUTO x10*3/uL 10.0 12.4* 10.7 10.7 HEMOGLOBIN g/dL 11.3* 10.8* 11.4* 12.3* HEMATOCRIT % 35.5* 35.0* 32.9* 36.3* PLATELETS AUTO x10*3/uL 175 151 204 213 NEUTROS PCT AUTO % -- -- -- 78.1 LYMPHS PCT AUTO % -- -- -- 9.4 MONOS PCT AUTO % -- -- -- 9.7 EOS PCT AUTO % -- -- -- 1.0 Results from last 7 days Lab Units 05/10/25 1422 APTT seconds 29 INR 1.1 Results from last 7 days Lab Units 05/13/25 0705 05/12/25 1139 05/11/25 0431 SODIUM mmol/L 140 139 139 POTASSIUM mmol/L 4.2 3.5 3.6 CHLORIDE mmol/L 107 109* 104 CO2 mmol/L 24 22 30 BUN mg/dL 22 18 21 CREATININE mg/dL 0.62 0.66 0.89 CALCIUM mg/dL 8.0* 7.2* 8.5* GLUCOSE mg/dL 90 81 124* I have reviewed all medications, laboratory results, and imaging pertinent for today's encounter. Cosigned by Dorian Cordon MD at 05/17/2025 9:13 AM EDT Associated attestation - Dorian Cordon MD - 05/17/2025 9:13 AM EDT I have seen and evaluated the patient, reviewed the labs and imaging, and discussed the patient with the multidisciplinary team. I have edited the note and/ or placed an addendum below. I agree with assessment and plan as documented. Pending dispo to acute rehab 05/16/25 1403 Discharge Planning Expected Discharge Disposition Rehab Transitional Care Coordination Progress Note: Per MD Kan SUTTON placed, pending goal rate feeds. ADOD tomorrow VM to [facility] rehab, advised of pts anticipated date of discharge. My contact information provided. CHRISTOPHER AmatoN, concrete pump operator Coordinator Office: [phone] Secure chat via [employer] [facility] TRAUMA SERVICE - PROGRESS NOTE Patient Name: Fawn Cameron Admit Date: [id number] : 1935 AGE: 89 y.o. 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 LOC (yes/no?): Yes Anticoagulant / Anti-platelet Rx? 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 (1.2 cm) TODAY'S ASSESSMENT AND PLAN OF CARE: # Right parietal SAH # L frontal lobe extra-axial hemorrhage - Repeat CTH 11PM 05/10 stable - Q4h neurochecks - Keppra 500mg BID for total 7 days (EOT 05/17) - Ok to restart ASA 81mg at post bleed day 7 (05/17) # R orbital roof fracture - ENT consulted - non operative - Sinus precautions - Ophthalmology consulted - no evidence of muscle entrapment # Bilateral pubic rami fractures with extension into the acetabular wall # Nondisplaced sacral ala fracture on right - Orthopedic consulted - non operative, trial of ambulation with PT/OT - WBAT BLLE #Oropharyngeal dysphagia > failed bedside eval and MBSS; ELECTRICAL AND INSTRUMENTATION MECHANIC rec NPO with ice chips >pt had DHT placed today, will start TF; nutrition recs appreciated # Comorbidities # Functional decline - Syncopal work-up: EKG, trop wnl, orthostats + - Geriatrics consulted, recs appreciated > vitamin D 5000 (for 8 weeks then 2000 indefinitely), vitamin B-12 > consider resuming alfazosin if e/o retention on bladder scan - continue home metop, PPI, statin #mild leukocytosis - resolved. No c/f active infection at this time. - NPO with ice chips - PT/OT eval - high intensity - SW consult for placement - DVT ppx: SCDs, started lovenox this AM - GI ppx: Home PPI for GERD - Dispo: [facility] care, pending acute rehab. DHT placed, medically ready. Seen and d/w attending, Dr. Bravo Omer MD PGY-1, Trauma Surgery CHIEF COMPLAINT / OVERNIGHT EVENTS: NAEON. No new or worsening pain. Amenable to DHT placement today. MEDICAL HISTORY / ROS: Admission history and ROS reviewed. Pertinent changes as follows: None PHYSICAL EXAM: Heart Rate: [66-94] Temp: [36 C (96.8 F)-37.5 C (99.5 F)] Resp: [15-18] BP: (116-162)/(71-87) SpO2: [94 %-95 %] Physical Exam Vitals and nursing note reviewed. Constitutional: Appearance: Normal appearance. HENT: Head: Normocephalic. Comments: 3 cm lacerations just above the right brow with [address] face and head otherwise atraumatic, midface stable, no malocclusion Eyes: Extraocular Movements: Extraocular movements intact. Pupils: Pupils are equal, round, and reactive to light. Cardiovascular: Rate and Rhythm: Normal rate and regular rhythm. Pulmonary: Effort: No respiratory distress. Abdominal: General: There is no distension. Palpations: Abdomen is soft. Tenderness: There is no abdominal tenderness. Musculoskeletal: Cervical back: Normal range of motion. Comments: Range of motion decreased bilateral hips due to pain, muscle strength 5/5 bilateral upper and lower extremities Skin: General: Skin is warm. Capillary Refill: Capillary refill takes less than 2 seconds. Comments: Skin tears present on the dorsal right hand/knuckles and forearm without any active bleeding, wrapped with gauze; bilateral forearm ecchymoses Neurological: Mental Status: He is alert. Mental status is at baseline. IMAGING SUMMARY: (summary of new imaging findings, not a copy of dictation) None LABS: Results from last 7 days Lab Units 05/14/25 0645 05/13/25 0705 05/11/25 0431 05/10/25 1422 WBC AUTO x10*3/uL 10.0 12.4* 10.7 10.7 HEMOGLOBIN g/dL 11.3* 10.8* 11.4* 12.3* HEMATOCRIT % 35.5* 35.0* 32.9* 36.3* PLATELETS AUTO x10*3/uL 175 151 204 213 NEUTROS PCT AUTO % -- -- -- 78.1 LYMPHS PCT AUTO % -- -- -- 9.4 MONOS PCT AUTO % -- -- -- 9.7 EOS PCT AUTO % -- -- -- 1.0 Results from last 7 days Lab Units 05/10/25 1422 APTT seconds 29 INR 1.1 Results from last 7 days Lab Units 05/13/25 0705 05/12/25 1139 05/11/25 0431 SODIUM mmol/L 140 139 139 POTASSIUM mmol/L 4.2 3.5 3.6 CHLORIDE mmol/L 107 109* 104 CO2 mmol/L 24 22 30 BUN mg/dL 22 18 21 CREATININE mg/dL 0.62 0.66 0.89 CALCIUM mg/dL 8.0* 7.2* 8.5* GLUCOSE mg/dL 90 81 124* I have reviewed all medications, laboratory results, and imaging pertinent for today's encounter. Cosigned by Dorian Cordon MD at 05/17/2025 9:13 AM EDT Associated attestation - Dorian Cordon MD - 05/17/2025 9:13 AM EDT I have seen and evaluated the patient, reviewed the labs and imaging, and discussed the patient with the multidisciplinary team. I have edited the note and/ or placed an addendum below. I agree with assessment and plan as documented. Physical Therapy Physical Therapy Treatment Patient Name: Fawn Campos Department: [place] [address] Room: 6081/6081-A Today's Date: 05/15/2025 Time Calculation Start Time: 0953 Stop Time: 1017 Time Calculation (min): 24 min Assessment/Plan PT Assessment PT Assessment Results: Decreased strength, Decreased endurance, Impaired balance, Decreased mobility, Pain Rehab Prognosis: Good Barriers to Discharge Home: Caregiver assistance, Physical needs Caregiver Assistance: Caregiver assistance needed per identified barriers - however, level of patient's required assistance exceeds assistance available at home Physical Needs: Stair navigation into home limited by function/safety, Ambulating household distances limited by function/safety, High falls risk due to function or environment, Intermittent mobility assistance needed Evaluation/Treatment Tolerance: Patient tolerated treatment well Medical Staff Made Aware: Yes Strengths: Attitude of self Barriers to Participation: Comorbidities End of Session Communication: Bedside nurse Assessment Comment: pt able to progress to ambulation but with constant cueing. pt labile with lack of progress although reminded that pt is doing better each time. Continues to be appropriate for services. End of Session Patient Position: Up in chair PT Plan Inpatient/Swing Bed or Outpatient: Inpatient PT Plan Treatment/Interventions: Bed mobility, Transfer training, Gait training, Stair training, Balance training, Strengthening, Endurance training, Therapeutic exercise, Range of motion, Therapeutic activity, Home exercise program PT Plan: Ongoing PT PT Frequency: 5 times per week PT Discharge Recommendations: High intensity level of continued care Equipment Recommended upon Discharge: (tbd) PT Recommended Transfer Status: Assist x1 PT - OK to Discharge: Yes PT Visit Info: PT Received On: 05/15/25 Response to Previous Treatment: Patient with no complaints from previous session. General Visit Information: General Reason for Referral: fall, +LOC, nondisplaced orbital fx, R frontal SDH, R LC1 pelvic ring injury Past Medical History Relevant to Rehab: s/p L GABO 10y ago at OSH, s/p L rTSA 6y ago at OSH, CAD, TIA, AAA, GERD Family/Caregiver Present: No Prior to Session Communication: Bedside nurse Patient Position Received: (pt up in chair with OT at start of session.) General Comment: pt sitting up in chair and willing to participate. pt labile during session, discouraged by situation Subjective Precautions: Precautions LE Weight Bearing Status: Weight Bearing as Tolerated Medical Precautions: Fall precautions, Oxygen therapy device and L/min Precautions Comment: SBP <160, sinus precautions Date/Time Vitals Session Patient Position Pulse Resp SpO2 BP MAP (mmHg) 05/15/25 1113 -- -- 94 -- 94 % 116/71 86 Objective Pain: Pain Assessment Pain Assessment: 0-10 0-10 (Numeric) Pain Score: 0 - No pain Cognition: Cognition Overall Cognitive Status: (labile at times) Orientation Level: Oriented X4 Insight: Within function limits Coordination: Movements are Fluid and Coordinated: Yes Postural Control: Postural Control Posture Comment: increase trunk flexion in standing Static Sitting Balance Static Sitting-Balance Support: Feet supported, Bilateral upper extremity supported Static Sitting-Level of Assistance: Close supervision Static Standing Balance Static Standing-Balance Support: Bilateral upper extremity supported (ww) Static Standing-Level of Assistance: Minimum assistance Dynamic Standing Balance Dynamic Standing-Balance Support: Bilateral upper extremity supported (ww) Dynamic Standing-Level of Assistance: Moderate assistance Activity Tolerance: Activity Tolerance Endurance: Tolerates 10 - 20 min exercise with multiple rests Treatments: Therapeutic Exercise Therapeutic Exercise Performed: Yes Therapeutic Exercise Activity 1: seated: SAQ, marches, pillow isometric adduction (3 seconds) and heel toe 1 x 10 each B Therapeutic Activity Therapeutic Activity Performed: Yes Therapeutic Activity 1: increase time spent on gait training with constant cueing for sequencing. Bed Mobility Bed Mobility: No Ambulation/Gait Training Ambulation/Gait Training Performed: Yes Ambulation/Gait Training 1 Surface 1: Level tile Device 1: Rolling walker Assistance 1: Maximum assistance, Maximum verbal cues Quality of Gait 1: Antalgic, Narrow base of support, Inconsistent stride length, Decreased step length, Shuffling gait (pt with greater ease on foot clearanc for R LE than L) Comments/Distance (ft) 1: pt ambulated 8 ft with increase time Transfers Transfer: Yes Transfer 1 Transfer From 1: Sit to, Stand to Transfer to 1: Stand, Sit Technique 1: Sit to stand, Stand to sit Transfer Device 1: Walker Transfer Level of Assistance 1: Moderate assistance Trials/Comments 1: cues for hand placement on chair and walker Stairs Stairs: No Outcome Measures: [facility] Basic Mobility Turning from your back to your side while in a flat bed without using bedrails: A lot Moving from lying on your back to sitting on the side of a flat bed without using bedrails: A lot Moving to and from bed to chair (including a wheelchair): A lot Standing up from a chair using your arms (e.g. wheelchair or bedside chair): A lot To walk in hospital room: A lot Climbing 3-5 steps with railing: Total Basic Mobility - Total Score: 11 Education Documentation Precautions, taught by Beatriz Gordon PT at 05/15/2025 12:40 PM. Learner: Patient Readiness: Acceptance Method: Explanation Response: Verbalizes Understanding Body Mechanics, taught by Beatriz Gordon PT at 05/15/2025 12:40 PM. Learner: Patient Readiness: Acceptance Method: Explanation Response: Verbalizes Understanding Mobility Training, taught by Beatriz Gordon PT at 05/15/2025 12:40 PM. Learner: Patient Readiness: Acceptance Method: Explanation Response: Verbalizes Understanding Education Comments No comments found. OP EDUCATION: Encounter Problems Encounter Problems (Active) PT Problem Pt will perform supine<>sit with SBA (Progressing) Start: 05/11/25 Expected End: 05/25/25 Pt will perform sit<>stand with LRAD and SBA (Progressing) Start: 05/11/25 Expected End: 05/25/25 Pt will ambulate >50ft with LRAD and supervision (Progressing) Start: 05/11/25 Expected End: 05/25/25 Pt will ascend/descend single step with LRAD and SBA (Progressing) Start: 05/11/25 Expected End: 05/25/25 05/15/25 1229 Discharge Planning Expected Discharge Disposition Rehab Does the patient need discharge transport arranged? Yes Transitional Care Coordination Progress Note: This nurse met with the pt and his family and Met with pt and introduced myself as [facility] Specialist with Care Transitions Team for Discharge Planning. My contact information provided, Updates submitted to [facility]. DIANNE Amato, concrete pump operator Coordinator Office: [phone] Secure chat via [employer] Occupational Therapy Occupational Therapy Treatment Name: Fawn Campos Department: [place] [address] Room: [facility] Date: 05/15/25 Time Calculation Start Time: 936 Stop Time: 1000 Time Calculation (min): 23 min Assessment: OT Assessment: difficulty I/ADLS, safety, fxnl mob Prognosis: Good Barriers to Discharge Home: Physical needs Physical Needs: 24hr mobility assistance needed, 24hr ADL assistance needed, High falls risk due to function or environment Evaluation/Treatment Tolerance: Patient tolerated treatment well Medical Staff Made Aware: Yes End of Session Communication: Bedside nurse End of Session Patient Position: Up in chair, Alarm on Plan: Treatment Interventions: ADL retraining, Functional transfer training, Endurance training, Cognitive reorientation, UE strengthening/ROM, Patient/family training, Equipment evaluation/education, Compensatory technique education OT Frequency: 3 times per week OT Discharge Recommendations: High intensity level of continued care Equipment Recommended upon Discharge: (BSC, wheelchair, WhW, hip kit) OT Recommended Transfer Status: Assist of 2 OT - OK to Discharge: Yes Subjective OT Visit Info: OT Received On: 05/15/25 General: General Reason for Referral: fall, +LOC, nondisplaced orbital fx, R frontal SDH, R LC1 pelvic ring injury Past Medical History Relevant to Rehab: s/p L GABO 10y ago at OSH, s/p L rTSA 6y ago at OSH, CAD, TIA, AAA, GERD Family/Caregiver Present: Yes Caregiver Feedback: family present beginning of session Prior to Session Communication: Bedside nurse Patient Position Received: Bed, 3 rail up, Alarm on General Comment: extended time mob, improved mob this date Precautions: LE Weight Bearing Status: Weight Bearing as Tolerated Medical Precautions: Fall precautions, Oxygen therapy device and L/min Date/Time Vitals Session Patient Position Pulse Resp SpO2 BP MAP (mmHg) 05/15/25 0834 -- -- 84 -- 94 % -- -- Pain Assessment: Pain Assessment Pain Assessment: 0-10 0-10 (Numeric) Pain Score: 0 - No pain Objective Cognition: Overall Cognitive Status: Within Functional Limits Orientation Level: Oriented X4 Insight: Within function limits Activities of Daily Living: Grooming Grooming Level of Assistance: (pt performed oral care mod A setup, SBA seated in chair) UE Dressing UE Dressing Level of Assistance: (mod A adjust gown EOB) LE Dressing LE Dressing: (max A adjust socks sup) Bed Mobility/Transfers: Bed Mobility Bed Mobility: (sup to sit mod A, extended time) Transfers Transfer: (3x sit to stand mod A WhW, seated EOB >10 min CGA extended rest break required) Functional Mobility: Functional Mobility Functional Mobility Performed: (pt performed fxnl mob bed to chair max A x2 WHW) Sitting Balance: Dynamic Sitting Balance Dynamic Sitting-Level of Assistance: Contact guard Outcome Measures: [facility] Daily Activity Putting on and taking off regular lower body clothing: A lot Bathing (including washing, rinsing, drying): A lot Putting on and taking off regular upper body clothing: A lot Toileting, which includes using toilet, bedpan or urinal: A lot Taking care of personal grooming such as brushing teeth: A little Eating Meals: None Daily Activity - Total Score: 15 Education Documentation Body Mechanics, taught by Ilda Hutson OT at 05/15/2025 10:23 AM. Learner: Patient Readiness: Acceptance Method: Explanation, Demonstration Response: Verbalizes Understanding, Needs Reinforcement Comment: daylin hennessy ADLs Precautions, taught by Ilda Hutson OT at 05/15/2025 10:23 AM. Learner: Patient Readiness: Acceptance Method: Explanation, Demonstration Response: Verbalizes Understanding, Needs Reinforcement Comment: fxnl mob ADLs ADL Training, taught by Ilda Hutson OT at 05/15/2025 10:23 AM. Learner: Patient Readiness: Acceptance Method: Explanation, Demonstration Response: Verbalizes Understanding, Needs Reinforcement Comment: daylin hennessy ADLs Education Comments No comments found. Goals: Encounter Problems Encounter Problems (Active) ADLs Patient will perform UB and LB bathing with stand by assist level of assistance and ae. (Progressing) Start: 05/13/25 Expected End: 06/03/25 Patient with complete upper body dressing with independent level of assistance (Progressing) Start: 05/13/25 Expected End: 06/03/25 Patient with complete lower body dressing with stand by assist level of assistance donning and doffing all LE clothes with PRN adaptive equipment (Progressing) Start: 05/13/25 Expected End: 06/03/25 Patient will complete daily grooming tasks with independent level of assistance (Progressing) Start: 05/13/25 Expected End: 06/03/25 Patient will complete toileting including hygiene clothing management/hygiene with minimal assist level of assistance and lrd. (Progressing) Start: 05/13/25 Expected End: 06/03/25 EXERCISE/STRENGTHENING Patient with increase BUE to wfl strength. (Progressing) Start: 05/13/25 Expected End: 06/03/25 MOBILITY Patient will perform Functional mobility mod Household distances/Community Distances with moderate assist level of assistance and least restrictive device in order to improve safety and functional mobility. (Progressing) Start: 05/13/25 Expected End: 06/03/25 TRANSFERS Patient will perform bed mobility minimal assist level of assistance and bed rails in order to improve safety and independence with mobility (Progressing) Start: 05/13/25 Expected End: 06/03/25 Patient will complete functional transfer least restrictive device with minimal assist level of assistance. (Progressing) Start: 05/13/25 Expected End: 06/03/25 Subjective NAONE Interval Updates: failed bedside and barrium swallow, now NPO Pt is understandably unsure about whether to accept enteral feeds but otherwise has no acute concerns; states pain is well controlled Objective Current Medications[1] Physical Exam Constitutional: Appearance: Normal appearance. HENT: Head: Normocephalic. Comments: 3 cm lacerations just above the right brow with [address] Eyes: Extraocular Movements: Extraocular movements intact. Pupils: Pupils are equal, round, and reactive to light. Cardiovascular: Rate and Rhythm: Normal rate and regular rhythm. Pulmonary: Effort: No respiratory distress. Abdominal: General: There is no distension. Palpations: Abdomen is soft. Tenderness: There is no abdominal tenderness. Musculoskeletal: Cervical back: Normal range of motion. Comments: Range of motion decreased bilateral hips due to pain, muscle strength 5/5 bilateral lower extremities Skin: General: Skin is warm. Capillary Refill: Capillary refill takes less than 2 seconds. Comments: Skin tears present on the dorsal right hand/knuckles and forearm without any active bleeding, wrapped with gauze; bilateral forearm ecchymoses Confusion Assessment Method(CAM) for diagnosis of delirium: 1. Acute onset or fluctuating course: absent 2. Inattention: absent 3. Disorganized thinking: absent 4. Altered level of consciousness: absent CAM: negative AT Score For Assessment of Delirium and Cognitive Impairment: Alertness: 0 Normal(fully alert,but not agitated, throughout assessment)=0 Mild sleepiness for <10 seconds after walking, then normal=0 Clearly abnormal=4 2. AMT4: 0 No mistakes=0 One mistake=1 Two or more mistakes/untestable=2 3. Attention: 0 Achieves seven months or more correctly=0 Starts but scores <7 months/ refuses to start=1 Untestable(cannot start because unwell, drowsy, inattentive)=2 4. Acute: 0 No=0 Yes=4 Total Score: 0 4 or above: Possible delirium +/- cognitive impairment 1-3: Possible cognitive impairment 0: Delirium or severe cognitive impairment unlikely(but delirium still possible if (4) information incomplete) Last Recorded Vitals 05/14/2025 3:35 PM 05/14/2025 7:59 PM 05/14/2025 8:00 PM 05/14/2025 10:00 PM 05/14/2025 11:00 PM 05/15/2025 4:30 AM 05/15/2025 7:18 AM Vitals Systolic 157 160 162 162 157 Diastolic 80 87 80 80 86 BP Location Right arm Right arm Right arm Left arm Heart Rate 80 82 79 76 85 66 Temp 36.8 C (98.2 F) 37.2 C (99 F) 37 C (98.6 F) 36.6 C (97.9 F) 37.5 C (99.5 F) 36 C (96.8 F) 36.7 C (98.1 F) Resp 15 15 18 16 Vitals: 05/10/25 2157 Weight: 66.2 kg (146 lb) Relevant Results Lab Results Component Value Date TSH 4.88 (H) 05/12/2025 [id number] 283 05/12/2025 [id number] 18 (L) 05/12/2025 Results from last 7 days Lab Units 05/14/25 0645 05/13/25 0705 05/12/25 1139 05/11/25 0431 05/10/25 1422 WBC AUTO x10*3/uL 10.0 12.4* -- 10.7 10.7 HEMOGLOBIN g/dL 11.3* 10.8* -- 11.4* 12.3* HEMATOCRIT % 35.5* 35.0* -- 32.9* 36.3* SODIUM mmol/L -- 140 139 139 138 POTASSIUM mmol/L -- 4.2 3.5 3.6 3.9 CHLORIDE mmol/L -- 107 109* 104 106 CREATININE mg/dL -- 0.62 0.66 0.89 0.77 BUN mg/dL -- 22 18 21 26* CO2 mmol/L -- 24 22 30 26 INR -- -- -- -- 1.1 XR cervical spine 2-3 views Result Date: 05/09/2025 Impression: 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 MACRO: None Signed by: Clement Estevez 05/09/2025 8:28 AM Dictation workstation: [id number] Transthoracic Echo Complete [facility], [address] [place] [address] and TRANSTHORACIC ECHOCARDIOGRAM REPORT Patient Name: FAWN Lee Physician: [id number] Noelle Roberts MD Study Date: 05/13/2025 Ordering Provider: [id number] LAY WALDROP MRN/PID: [id number] Fellow: Nurse: Date of /Age: 5 1935 City Auditor: Enmanuel Cook years RDCS, RVT Gender assigned at M Additional Staff: : Height: 167.64 cm Admit Date: 05/10/2025 Weight: 66.23 kg Admission Status: Inpatient - STAT BSA / BMI: 1.75 m2 / 23.57 kg/m2 Blood Pressure: 120/77 mmHg Department Location: [place] [address] Study Type: TRANSTHORACIC ECHO (TTE) COMPLETE Diagnosis/ICD: Syncope-R55 Indication: syncopal work-up CPT Code: Echo Complete w Full Doppler-[id number] Patient History: Pertinent History: HTN, HLD, TIA, bradycardia. Study Detail: The following Echo studies were performed: 2D, M-Mode, Doppler and color flow. PHYSICIAN INTERPRETATION: Left Ventricle: Left ventricular ejection fraction is normal by visual estimate at 60-65%. There are no regional left ventricular wall motion abnormalities. The left ventricular cavity size is normal. There is normal septal and normal posterior left ventricular wall thickness. Spectral Doppler shows a Grade I (impaired relaxation pattern) of left ventricular diastolic filling with normal left atrial filling pressure. Left Atrium: The left atrial size is normal. There is a mobile interatrial septum. Right Ventricle: The right ventricle was not well visualized. Unable to determine right ventricular systolic function. Right Atrium: The right atrial size was not well visualized. Aortic Valve: The aortic valve is trileaflet. The aortic valve area by VTI is 1.69 cm with a peak velocity of 1.92 m/s. The peak and mean gradients are 15 mmHg and 8 mmHg, respectively with a dimensionless index of 0.54. There is mild aortic valve cusp calcification. There is mild aortic valve regurgitation. Mitral Valve: The mitral valve is normal in structure. There is trace mitral valve regurgitation. The E Vmax is 0.53 m/s. Tricuspid Valve: The tricuspid valve is structurally normal. There is mild tricuspid regurgitation. The Doppler estimated right ventricular systolic pressure (RVSP) is mildly elevated at 39 mmHg. Pulmonic Valve: The pulmonic valve is structurally normal. There is physiologic pulmonic valve regurgitation. Pericardium: Trivial pericardial effusion. Aorta: The aortic root is normal. Systemic Veins: The inferior vena cava was not well visualized, IVC inspiratory collapse is not well visualized. In comparison to the previous echocardiogram(s): Compared with study dated 07/31/2024, [facility], no significant changes from the report, images not currently available. Note the prior exam reported mildly enlarged RV which was not well seen today. In addition there was previously an agitated saline contrast study that was neative for intracardiac shunt. CONCLUSIONS: 1. Left ventricular ejection fraction is normal by visual estimate at 60-65%. 2. Spectral Doppler shows a Grade I (impaired relaxation pattern) of left ventricular diastolic filling with normal left atrial filling pressure. 3. Unable to determine right ventricular systolic function. 4. The Doppler estimated RVSP is mildly elevated at 39 mmHg. 5. Mild aortic valve regurgitation. 6. Compared with study dated 07/31/2024, [facility], no significant changes from the report, images not currently available. Note the prior exam reported mildly enlarged RV which was not well seen today. In addition there was previously an agitated saline contrast study that was neative for intracardiac shunt. QUANTITATIVE DATA SUMMARY: 2D MEASUREMENTS: Normal Ranges: Ao Root d: 3.20 cm (2.0-3.7cm) LAs: 3.40 cm (2.7-4.0cm) IVSd: 0.70 cm (0.6-1.1cm) LVPWd: 0.70 cm (0.6-1.1cm) LVIDd: 4.70 cm (3.9-5.9cm) LVIDs: 2.80 cm LV Mass Index: 59 g/m2 LVEDV Index: 55 ml/m2 LV % FS 40.4 % LEFT ATRIUM: Normal Ranges: LA Vol A4C: 37.6 ml (22+/-6mL/m2) LA Vol A2C: 25.7 ml LA Vol BP: 32.7 ml LA Vol Index A4C: 21.5ml/m2 LA Vol Index A2C: 14.7 ml/m2 LA Vol Index BP: 18.7 ml/m2 LA Area A4C: 13.9 cm2 LA Area A2C: 12.1 cm2 LA Major [place] A4C: 4.4 cm LA Major [place] A2C: 4.8 cm RIGHT ATRIUM: Normal Ranges: RA Area A4C: 7.7 cm2 AORTA MEASUREMENTS: Normal Ranges: Ao Sinus, d: 3.20 cm (2.1-3.5cm) Asc Ao, d: 3.00 cm (2.1-3.4cm) LV SYSTOLIC FUNCTION: Normal Ranges: EF-A4C View: 70 % (>=55%) EF-A2C View: 63 % EF-Biplane: 67 % EF-Visual: 63 % LV EF Reported: 63 % LV DIASTOLIC FUNCTION: Normal Ranges: MV Peak E: 0.53 m/s (0.7-1.2 m/s) MV Peak A: 0.72 m/s (0.42-0.7 m/s) E/A Ratio: 0.73 (1.0-2.2) MV e' 0.086 m/s (>8.0) MV lateral e' 0.11 m/s MV medial e' 0.07 m/s E/e' Ratio: 6.11 (<8.0) PulmV Sys Neetu: 67.70 cm/s PulmV Salomon Neetu: 42.80 cm/s PulmV S/D Neetu: 1.60 AORTIC VALVE: Normal Ranges: AoV Vmax: 1.92 m/s (<=1.7m/s) AoV Peak P.7 mmHg (<20mmHg) AoV Mean P.0 mmHg (1.7-11.5mmHg) LVOT Max Neetu: 1.08 m/s (<=1.1m/s) AoV VTI: 39.50 cm (18-25cm) LVOT VTI: 21.30 cm LVOT Diameter: 2.00 cm (1.8-2.4cm) AoV Area, VTI: 1.69 cm2 (2.5-5.5cm2) AoV Area,Vmax: 1.77 cm2 (2.5-4.5cm2) AoV Dimensionless Index: 0.54 AORTIC INSUFFICIENCY: AI Vmax: 3.24 m/s AI Half-time: 463 msec AI Decel Rate: 198.00 cm/s2 RIGHT VENTRICLE: TAPSE: 21.6 mm RV s' 0.13 m/s TRICUSPID VALVE/RVSP: Normal Ranges: Peak TR Velocity: 3.00 m/s Est. RA Pressure: 3 RV Syst Pressure: 39 (< 30mmHg) PULMONIC VALVE: Normal Ranges: PV Accel Time: 111 msec (>120ms) PV Max Neetu: 1.6 m/s (0.6-0.9m/s) PV Max P.8 mmHg PULMONARY VEINS: PulmV Salomon Neetu: 42.80 cm/s PulmV S/D Neetu: 1.60 PulmV Sys Neetu: 67.70 cm/s [id number] Noelle Roberts MD Electronically signed on 05/13/2025 at 4:09:55 PM Final DATA: EKG: QTC Encounter Date: 05/10/25 ECG 12 lead Result Value Ventricular Rate 72 Atrial Rate 72 [place] Interval 190 QRS Duration 104 QT Interval 394 QTC Calculation(Bazett) 431 P [place] 31 R [place] -15 T [place] 44 QRS Count 12 Q Onset 210 P Onset 115 P Offset 178 T Offset 407 QTC Fredericia 418 Narrative Normal sinus rhythm Normal ECG When compared with ECG of 10-MAY-2025 13:54, No significant change was found See ED provider note for full interpretation and clinical correlation Confirmed by Yolanda Garcia ([id number]) on 05/11/2025 3:47:31 AM Anti-psychotics in 48 hours: no Opioids/Benzodiazepines in 48 hours: No Anticholinergics on board: No Restraints:No Indwelling catheters: no Last BM: 05/15 UO in 24 hours: 3x Activity in the past 24 hours: Bed-bound Need for ambulatory devices: Unknown Assessment/Plan Fawn Campos is a 89 y.o. male on day 4 of admission presenting with Fall, initial encounter. Principal Problem: Fall, initial encounter This is a/an 89 y.o. year old male, with past medical history relevant for AAA, infrarenal aneurysm, HTN, HLD, CAD (on ASA) presented after an unwitnessed fall, found to have injuries to the R orbital floor, Mild buckled fracture of the RT anterior cranial floor/orbital roof, Small RT (2 mm) subdural hematoma, Trace right frontal subarachnoid hematoma, Bilateral pubic rami fractures with extension into the acetabular wall, Nondisplaced sacral ala fracture on right. Geriatrics was consulted due to advanced age falls. On 05/14 we discussed the patient's code status. The patient expressed that they would not like compressions or resuscitation if their heart were to stop. They stated that they had discussed this with their before and come to this decision. Patient is agreeable to short term intubation if situation were to arise. Patient's mental status is consistent with having capacity to make decisions regarding code status. Will notify primary trauma surgery team and change code status to DNR in EMR. Acute Fall - cause unclear; orthostasis vs. Arhythmia vs. Autonomia vs. Polypharmacy -Patient currently orthostatic. - orthostats positive: laying BP 128/88 HR 88, sitting BP 138/70 HR 80 - EKG/trops negative on admission, QTC 431, telemetry NSR - Lipid panel normal, no A1c - vit d low at 18; recommend high dose Vit D supplementation at 50,000iu for 8 weeks followed by 2000iu daily indefinitely - ok to hold D supplementation while he is NPO - Hx of being on alendronate, no evidence of osteoporosis/ DEXA Needs to follow-up in the outpatient - monitor pain levels as pt not receiving tylenol while NPO; recommend tylenol via NG, discourage IV pain control unless absolutely necessary as not to delay discharge 2. Polypharmacy - on several home peripheral vasodilators that can cause orthostasis and hypotension (alfuzosin, amlodipine, benazepril, metoprolol) - amitryptyline and alfuzosin are anticholinergic and can cause sedation/ weakness/ hypotension - alfuzosin, amlodipine, benazepril and amitryptyline have been held since admission; continue to hold and DO NOT resume on discharge, except see below for HTN. 3. HTN - alfuzosin, amlodipine, benazepril have been held since admission; continue to hold and DO NOT resume on discharge - BP has been stable - If BP becomes elevated/unstable, consider adding back TRAVIS-i but starting at a lower dose. This will treat both BPH and BP. 4. Constipation - schedule miralax daily. Can be given via a tube if he decides to go with a NGT - titrate to 1BM daily 5. Urinary Retention -not currently on his home med of alfuzosin. Seems to be urinating ok here - recommend continued monitoring / follow up on an OP basis - Urology and PCP. - can consider post-void bladder scan if there is concern for retention 6. Vitamin B12 deficiency, chronic macrocytic anemia - B12 low at 283; recommend supplementation at 1000mg daily. Hold while NPO. 7. Abnormal TSH - TSH 4.88 w/ normal thyroxine 1.15; do not treat or investigate in geriatric population unless TSH >8 Can be rechecked in 6 weeks as an outpatient - agree. 8. Dysphagia Goals of care - Failed barium swallow on 05/14. Severe oropharnygeal dysphagia and risk for aspiration - Speech pathology recommending patient be NPO. Currently is on D51/2 normal saline. - Pt amenable to NG tube placement for enteral feeds and continued ST at SNF, possible PEG; he is not willing to accept the risk of aspiration with PO intake. Family was at bedside during the discussion and are in agreement as well. - Consider NG placement at this time Care Transitions: -Recommended level for discharge: post-acute rehab -Home going considerations: lives alone with -Primary care physician: Don Barrera MD Goals of Care: -Health care power of deputy attorney general: Diya () -Living will: present Code status: DNR. Ok with intubation (if needed in any situation outside of a code) Geriatric medicine will continue to follow the patient. Thank you for allowing geriatric medicine to be involved in the care of your patient. Geriatric medicine consultation team is available during work hours Sunday through Sunday. For any emergency issues requiring immediate assistance over the weekend, please page Geriatrics pager [phone] Robb Rossi, DO PGY3 Family Medicine I saw and evaluated the patient. I personally obtained the de jesus and critical portions of the history and physical exam or was physically present for de jesus and critical portions performed by the resident / med student. I reviewed the resident s / med student's documentation and discussed the patient with them. I agree with the resident's / medical student's medical decision making as documented in their note, which includes my edits. Nolan Carson MD [1] Current Facility-Administered Medications Medication Dose Route Frequency Provider Last Rate Last Admin acetaminophen (Tylenol) tablet 650 mg 650 mg oral q6h [facility] Daryl Dickson 650 mg at 05/13/25 1441 bisacodyl (Dulcolax) EC tablet 5 mg 5 mg oral Daily PRN Rajwinder Omer MD [Held by provider] cholecalciferol (Vitamin D-3) tablet 125 mcg 125 mcg oral Daily Rajwinder Omer MD [Held by provider] cyanocobalamin (Vitamin B-12) tablet 1,000 mcg 1,000 mcg oral Daily Rajwinder Omer MD 1,000 mcg at 05/13/25 1441 D5 % and 0.9 % sodium chloride infusion 100 mL/hr intravenous Continuous Rajwinder Omer MD 100 mL/hr at 05/15/25 0618 100 mL/hr at 05/15/25 0618 enoxaparin (Lovenox) syringe 30 mg 30 mg subcutaneous q12h KIKA Rajwinder Omer MD 30 mg at 05/14/25 2356 levETIRAcetam (Keppra) 500 mg in sodium chloride (iso) IV 100 mL 500 mg intravenous q12h Rajwinder Omer MD Stopped at 05/14/25 2130 metoprolol tartrate (Lopressor) injection 2.5 mg 2.5 mg intravenous q6h Rajwinder Omer MD 2.5 mg at 05/15/25 0221 [Held by provider] metoprolol tartrate (Lopressor) tablet 12.5 mg 12.5 mg oral BID Frida Granda MD 12.5 mg at 05/13/25 0928 ondansetron (Zofran) tablet 4 mg 4 mg oral q8h PRN Daryl Dickson Or ondansetron (Zofran) injection 4 mg 4 mg intravenous q8h PRN Daryl Dickson oxyCODONE (Roxicodone) immediate release tablet 2.5 mg 2.5 mg oral q6h PRN Daryl Dickson 2.5 mg at 05/11/25 1849 oxyCODONE (Roxicodone) immediate release tablet 5 mg 5 mg oral q4h PRN Daryl Dickson 5 mg at 05/13/25 0252 oxygen (O2) therapy inhalation Continuous - O2/gases Daryl Dickson pantoprazole (Protonix) injection 40 mg 40 mg intravenous Daily Rajwinder Omer MD 40 mg at 05/14/25 0909 [Held by provider] polyethylene glycol (Glycolax, Miralax) packet 17 g 17 g oral Daily Daryl Dickson 17 g at 05/12/25 0940 [Held by provider] pravastatin (Pravachol) tablet 40 mg 40 mg oral Nightly Frida Granda MD 40 mg at 05/12/252124 sennosides (Senokot) tablet 8.6 mg 1 tablet oral Nightly PRN Rajwinder Omer MD Images from the original note were not included. Subjective Patient failed barium swallow today. Speech pathology recommending patient be NPO with feeding aggressive oral or assuming risk of aspiration w/ continued PO intake. Patient remains afebrile and hemodynamically stable. No acute concerns. Pain well controlled. Patient's home nremt was visiting him at the bedside when the team stopped in to see him. Tried discussing the swallowing study result with him. He knew that the speech therapist said it is unsafe for him to eat. And states he was told he might need a feeding tube. And he knows that he was put on fluids with a sugar (dextrose) for now. He wishes to make a decision with his States that he would not want to be resuscitated but it is ok for intubation outside of a code. And he is ok with going to a SNF for rehab. Objective Current Medications[1] Physical Exam Constitutional: Appearance: Normal appearance. HENT: Head: Normocephalic. Comments: 3 cm lacerations just above the right brow with [address] Eyes: Extraocular Movements: Extraocular movements intact. Pupils: Pupils are equal, round, and reactive to light. Cardiovascular: Rate and Rhythm: Normal rate and regular rhythm. Pulmonary: Effort: No respiratory distress. Abdominal: General: There is no distension. Palpations: Abdomen is soft. Tenderness: There is no abdominal tenderness. Musculoskeletal: Cervical back: Normal range of motion. Comments: Range of motion decreased bilateral hips due to pain, muscle strength 5/5 bilateral lower extremities Skin: General: Skin is warm. Capillary Refill: Capillary refill takes less than 2 seconds. Comments: Skin tears present on the dorsal right hand/knuckles and forearm without any active bleeding, wrapped with gauze; bilateral forearm ecchymoses Confusion Assessment Method(CAM) for diagnosis of delirium: 1. Acute onset or fluctuating course: absent 2. Inattention: absent 3. Disorganized thinking: absent 4. Altered level of consciousness: absent CAM: negative AT Score For Assessment of Delirium and Cognitive Impairment: Alertness: 0 Normal(fully alert,but not agitated, throughout assessment)=0 Mild sleepiness for <10 seconds after walking, then normal=0 Clearly abnormal=4 2. AMT4: 0 No mistakes=0 One mistake=1 Two or more mistakes/untestable=2 3. Attention: 0 Achieves seven months or more correctly=0 Starts but scores <7 months/ refuses to start=1 Untestable(cannot start because unwell, drowsy, inattentive)=2 4. Acute: 0 No=0 Yes=4 Total Score: 0 4 or above: Possible delirium +/- cognitive impairment 1-3: Possible cognitive impairment 0: Delirium or severe cognitive impairment unlikely(but delirium still possible if (4) information incomplete) Last Recorded Vitals 05/14/2025 4:10 AM 05/14/2025 7:23 AM 05/14/2025 9:03 AM 05/14/2025 9:55 AM 05/14/2025 11:11 AM 05/14/2025 3:00 PM 05/14/2025 3:35 PM Vitals Systolic 126 170 158 162 157 157 Diastolic 67 91 67 79 81 80 BP Location Right arm Right arm Heart Rate 91 92 87 89 82 83 80 Temp 36.3 C (97.3 F) 36.9 C (98.4 F) 36.8 C (98.2 F) Resp 16 17 15 Vitals: 05/10/25 2157 Weight: 66.2 kg (146 lb) Relevant Results Lab Results Component Value Date TSH 4.88 (H) 05/12/2025 [id number] 283 05/12/2025 VITD25 18 (L) 05/12/2025 Results from last 7 days Lab Units 05/14/25 0645 05/13/25 0705 05/12/25 1139 05/11/25 0431 05/10/25 1422 WBC AUTO x10*3/uL 10.0 12.4* -- 10.7 10.7 HEMOGLOBIN g/dL 11.3* 10.8* -- 11.4* 12.3* HEMATOCRIT % 35.5* 35.0* -- 32.9* 36.3* SODIUM mmol/L -- 140 139 139 138 POTASSIUM mmol/L -- 4.2 3.5 3.6 3.9 CHLORIDE mmol/L -- 107 109* 104 106 CREATININE mg/dL -- 0.62 0.66 0.89 0.77 BUN mg/dL -- 22 18 21 26* CO2 mmol/L -- 24 22 30 26 INR -- -- -- -- 1.1 XR cervical spine 2-3 views Result Date: 05/09/2025 Impression: 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 MACRO: None Signed by: Clement Estevez 05/09/2025 8:28 AM Dictation workstation: [id number] Transthoracic Echo Complete [facility], [address] [place] [address] and TRANSTHORACIC ECHOCARDIOGRAM REPORT Patient Name: FAWN CAMERON Reading Physician: [id number] Noelle Roberts MD Study Date: 05/13/2025 Ordering Provider: [id number] LAY WALDROP MRN/PID: [id number] Fellow: Nurse: Date of /Age: 5 1935 City Auditor: Enmanuel sarmiento RDCS, RVT Gender assigned at M Additional Staff: : Height: 167.64 cm Admit Date: 05/10/2025 Weight: 66.23 kg Admission Status: Inpatient - STAT BSA / BMI: 1.75 m2 / 23.57 kg/m2 Blood Pressure: 120/77 mmHg Department Location: [place] [address] Study Type: TRANSTHORACIC ECHO (TTE) COMPLETE Diagnosis/ICD: Syncope-R55 Indication: syncopal work-up CPT Code: Echo Complete w Full Doppler-[id number] Patient History: Pertinent History: HTN, HLD, TIA, bradycardia. Study Detail: The following Echo studies were performed: 2D, M-Mode, Doppler and color flow. PHYSICIAN INTERPRETATION: Left Ventricle: Left ventricular ejection fraction is normal by visual estimate at 60-65%. There are no regional left ventricular wall motion abnormalities. The left ventricular cavity size is normal. There is normal septal and normal posterior left ventricular wall thickness. Spectral Doppler shows a Grade I (impaired relaxation pattern) of left ventricular diastolic filling with normal left atrial filling pressure. Left Atrium: The left atrial size is normal. There is a mobile interatrial septum. Right Ventricle: The right ventricle was not well visualized. Unable to determine right ventricular systolic function. Right Atrium: The right atrial size was not well visualized. Aortic Valve: The aortic valve is trileaflet. The aortic valve area by VTI is 1.69 cm with a peak velocity of 1.92 m/s. The peak and mean gradients are 15 mmHg and 8 mmHg, respectively with a dimensionless index of 0.54. There is mild aortic valve cusp calcification. There is mild aortic valve regurgitation. Mitral Valve: The mitral valve is normal in structure. There is trace mitral valve regurgitation. The E Vmax is 0.53 m/s. Tricuspid Valve: The tricuspid valve is structurally normal. There is mild tricuspid regurgitation. The Doppler estimated right ventricular systolic pressure (RVSP) is mildly elevated at 39 mmHg. Pulmonic Valve: The pulmonic valve is structurally normal. There is physiologic pulmonic valve regurgitation. Pericardium: Trivial pericardial effusion. Aorta: The aortic root is normal. Systemic Veins: The inferior vena cava was not well visualized, IVC inspiratory collapse is not well visualized. In comparison to the previous echocardiogram(s): Compared with study dated 07/31/2024, [facility], no significant changes from the report, images not currently available. Note the prior exam reported mildly enlarged RV which was not well seen today. In addition there was previously an agitated saline contrast study that was neative for intracardiac shunt. CONCLUSIONS: 1. Left ventricular ejection fraction is normal by visual estimate at 60-65%. 2. Spectral Doppler shows a Grade I (impaired relaxation pattern) of left ventricular diastolic filling with normal left atrial filling pressure. 3. Unable to determine right ventricular systolic function. 4. The Doppler estimated RVSP is mildly elevated at 39 mmHg. 5. Mild aortic valve regurgitation. 6. Compared with study dated 07/31/2024, [facility], no significant changes from the report, images not currently available. Note the prior exam reported mildly enlarged RV which was not well seen today. In addition there was previously an agitated saline contrast study that was neative for intracardiac shunt. QUANTITATIVE DATA SUMMARY: 2D MEASUREMENTS: Normal Ranges: Ao Root d: 3.20 cm (2.0-3.7cm) LAs: 3.40 cm (2.7-4.0cm) IVSd: 0.70 cm (0.6-1.1cm) LVPWd: 0.70 cm (0.6-1.1cm) LVIDd: 4.70 cm (3.9-5.9cm) LVIDs: 2.80 cm LV Mass Index: 59 g/m2 LVEDV Index: 55 ml/m2 LV % FS 40.4 % LEFT ATRIUM: Normal Ranges: LA Vol A4C: 37.6 ml (22+/-6mL/m2) LA Vol A2C: 25.7 ml LA Vol BP: 32.7 ml LA Vol Index A4C: 21.5ml/m2 LA Vol Index A2C: 14.7 ml/m2 LA Vol Index BP: 18.7 ml/m2 LA Area A4C: 13.9 cm2 LA Area A2C: 12.1 cm2 LA Major [place] A4C: 4.4 cm LA Major [place] A2C: 4.8 cm RIGHT ATRIUM: Normal Ranges: RA Area A4C: 7.7 cm2 AORTA MEASUREMENTS: Normal Ranges: Ao Sinus, d: 3.20 cm (2.1-3.5cm) Asc Ao, d: 3.00 cm (2.1-3.4cm) LV SYSTOLIC FUNCTION: Normal Ranges: EF-A4C View: 70 % (>=55%) EF-A2C View: 63 % EF-Biplane: 67 % EF-Visual: 63 % LV EF Reported: 63 % LV DIASTOLIC FUNCTION: Normal Ranges: MV Peak E: 0.53 m/s (0.7-1.2 m/s) MV Peak A: 0.72 m/s (0.42-0.7 m/s) E/A Ratio: 0.73 (1.0-2.2) MV e' 0.086 m/s (>8.0) MV lateral e' 0.11 m/s MV medial e' 0.07 m/s E/e' Ratio: 6.11 (<8.0) PulmV Sys Neetu: 67.70 cm/s PulmV Salomon Neetu: 42.80 cm/s PulmV S/D Neetu: 1.60 AORTIC VALVE: Normal Ranges: AoV Vmax: 1.92 m/s (<=1.7m/s) AoV Peak P.7 mmHg (<20mmHg) AoV Mean P.0 mmHg (1.7-11.5mmHg) LVOT Max Neetu: 1.08 m/s (<=1.1m/s) AoV VTI: 39.50 cm (18-25cm) LVOT VTI: 21.30 cm LVOT Diameter: 2.00 cm (1.8-2.4cm) AoV Area, VTI: 1.69 cm2 (2.5-5.5cm2) AoV Area,Vmax: 1.77 cm2 (2.5-4.5cm2) AoV Dimensionless Index: 0.54 AORTIC INSUFFICIENCY: AI Vmax: 3.24 m/s AI Half-time: 463 msec AI Decel Rate: 198.00 cm/s2 RIGHT VENTRICLE: TAPSE: 21.6 mm RV s' 0.13 m/s TRICUSPID VALVE/RVSP: Normal Ranges: Peak TR Velocity: 3.00 m/s Est. RA Pressure: 3 RV Syst Pressure: 39 (< 30mmHg) PULMONIC VALVE: Normal Ranges: PV Accel Time: 111 msec (>120ms) PV Max Neetu: 1.6 m/s (0.6-0.9m/s) PV Max P.8 mmHg PULMONARY VEINS: PulmV Salomon Neetu: 42.80 cm/s PulmV S/D Neetu: 1.60 PulmV Sys Neetu: 67.70 cm/s [id number] Noelle Roberts MD Electronically signed on 05/13/2025 at 4:09:55 PM Final DATA: EKG: QTC Encounter Date: 05/10/25 ECG 12 lead Result Value Ventricular Rate 72 Atrial Rate 72 [place] Interval 190 QRS Duration 104 QT Interval 394 QTC Calculation(Bazett) 431 P [place] 31 R [place] -15 T [place] 44 QRS Count 12 Q Onset 210 P Onset 115 P Offset 178 T Offset 407 QTC Fredericia 418 Narrative Normal sinus rhythm Normal ECG When compared with ECG of 10-MAY-2025 13:54, No significant change was found See ED provider note for full interpretation and clinical correlation Confirmed by Yolanda Garcia ([id number]) on 05/11/2025 3:47:31 AM Anti-psychotics in 48 hours: Opioids/Benzodiazepines in 48 hours: Yes (opioids) Anticholinergics on board: No Restraints:No Indwelling catheters: Yes - bed bound Last BM: 05/14 UO in 24 hours: 500 mL Activity in the past 24 hours: Bed-bound Need for ambulatory devices: Unknown Assessment/Plan Fawn Campos is a 89 y.o. male on day 3 of admission presenting with Fall, initial encounter. Principal Problem: Fall, initial encounter This is a/an 89 y.o. year old male, with past medical history relevant for AAA, infrarenal aneurysm, HTN, HLD, CAD (on ASA) presented after an unwitnessed fall, found to have injuries to the R orbital floor, Mild buckled fracture of the RT anterior cranial floor/orbital roof, Small RT (2 mm) subdural hematoma, Trace right frontal subarachnoid hematoma, Bilateral pubic rami fractures with extension into the acetabular wall, Nondisplaced sacral ala fracture on right. Geriatrics was consulted due to advanced age falls. On 05/14 we discussed the patient's code status. The patient expressed that they would not like compressions or resuscitation if their heart were to stop. They stated that they had discussed this with their before and come to this decision. Patient is agreeable to short term intubation if situation were to arise. Patient's mental status is consistent with having capacity to make decisions regarding code status. Will notify primary trauma surgery team and change code status to DNR in EMR. Acute Fall - cause unclear; orthostasis vs. Arhythmia vs. Autonomia vs. Polypharmacy -Patient currently orthostatic. - orthostats positive: laying BP 128/88 HR 88, sitting BP 138/70 HR 80 - EKG/trops negative on admission, QTC 431, telemetry NSR - Lipid panel normal, no A1c - vit d low at 18; recommend high dose Vit D supplementation at 50,000iu for 8 weeks followed by 2000iu daily indefinitely - Encourage po intake - ok to hold D supplementation while he is NPO - Hx of being on alendronate, no evidence of osteoporosis/ DEXA Needs to follow-up in the outpatient 2. Polypharmacy - on several home peripheral vasodilators that can cause orthostasis and hypotension (alfuzosin, amlodipine, benazepril, metoprolol) - amitryptyline and alfuzosin are anticholinergic and can cause sedation/ weakness/ hypotension - alfuzosin, amlodipine, benazepril and amitryptyline have been held since admission; continue to hold and DO NOT resume on discharge 3. HTN - alfuzosin, amlodipine, benazepril have been held since admission; continue to hold and DO NOT resume on discharge - BP has been stable - If BP becomes elevated/unstable, consider adding back benazepril but starting at a lower dose. Possibly 5mg and then titrating as indicated. 4. Constipation - schedule miralax daily. Can be given via a tube if he decides to go with a NGT - titrate to 1BM daily 5. Urinary Retention -not currently on his home med of alfuzosin. Seems to be urinating ok here - can consider post-void bladder scan if there is concern for retention 6. Vitamin B12 deficiency - B12 low at 283; recommend supplementation at 1000mg daily. Hold while NPO 7. Abnormal TSH - TSH 4.88 w/ normal thyroxine 1.15; do not treat or investigate in geriatric population unless TSH >8 Can be rechecked in 6 weeks as an outpatient 8. Dysphagia 9. Goals of care - Failed barium swallow on 05/14. Severe oropharnygeal dysphagia and risk for aspiration - Speech pathology recommending patient be NPO. Currently is on D51/2 normal saline - discussed the option of NGT with tube feeds and going to SNF with this and working with ST at SNF. Could have MBS in 2-3 weeks after discharge to see if his swallowing has improved. Other option is resume oral intake with the understanding of high risk of choking (with risk of ) or of getting aspiration pneumonia - he doesn't want to make a decision without discussing this with his . - Patient will make decision on feeding tube versus assuming risk of aspiration w/ continued PO intake after discussion with . Will discuss in person with patient and on 05/15. Care Transitions: -Recommended level for discharge: post-acute rehab (SNF) -Home going considerations: lives alone with -Primary care physician: Don Barrera MD Goals of Care: -Health care power of deputy attorney general: Diya () -Living will: present Code status: DNR. Ok with intubation (if needed in any situation outside of a code) Geriatric medicine will continue to follow the patient. Thank you for allowing geriatric medicine to be involved in the care of your patient. Geriatric medicine consultation team is available during work hours Sunday through Sunday. For any emergency issues requiring immediate assistance over the weekend, please page Geriatrics pager [phone] Reynaldo Stewart MD PGY-1 Internal Medicine Attending Addendum: Chart reviewed, patient examined, labs/imaging reviewed, and de jesus elements of the history and physical examination of the patient confirmed. I reviewed the resident's note and made edits in italics where needed. I agree with the documented findings and plan of care. Missy Floyd MD [1] Current Facility-Administered Medications Medication Dose Route Frequency Provider Last Rate Last Admin acetaminophen (Tylenol) tablet 650 mg 650 mg oral q6h [facility] Daryl Dickson 650 mg at 05/13/25 1441 bisacodyl (Dulcolax) EC tablet 5 mg 5 mg oral Daily PRN Rajwinder Omer MD [Held by provider] cholecalciferol (Vitamin D-3) tablet 125 mcg 125 mcg oral Daily Rajwinder Omer MD [Held by provider] cyanocobalamin (Vitamin B-12) tablet 1,000 mcg 1,000 mcg oral Daily Rajwinder Omer MD 1,000 mcg at 05/13/25 1441 D5 % and 0.9 % sodium chloride infusion 100 mL/hr intravenous Continuous Rajwinder Omer MD 100 mL/hr at 05/14/25 1151 100 mL/hr at 05/14/25 1151 enoxaparin (Lovenox) syringe 30 mg 30 mg subcutaneous q12h [facility] Rajwinder Omer MD 30 mg at 05/14/25 1151 levETIRAcetam (Keppra) 500 mg in sodium chloride (iso) IV 100 mL 500 mg intravenous q12h Rajwinder Omer MD Stopped at 05/14/25 1051 metoprolol tartrate (Lopressor) injection 2.5 mg 2.5 mg intravenous q6h Rajwinder Omer MD 2.5 mg at 05/14/25 1504 [Held by provider] metoprolol tartrate (Lopressor) tablet 12.5 mg 12.5 mg oral BID February Evelyn Granda MD 12.5 mg at 05/13/25 0928 ondansetron (Zofran) tablet 4 mg 4 mg oral q8h PRN Daryl Dickson Or ondansetron (Zofran) injection 4 mg 4 mg intravenous q8h PRN Daryl Dickson oxyCODONE (Roxicodone) immediate release tablet 2.5 mg 2.5 mg oral q6h PRN Daryl Dickson 2.5 mg at 05/11/25 1849 oxyCODONE (Roxicodone) immediate release tablet 5 mg 5 mg oral q4h PRN Daryl Dickson 5 mg at 05/13/25 0252 oxygen (O2) therapy inhalation Continuous - O2/gases Daryl Dickson pantoprazole (Protonix) injection 40 mg 40 mg intravenous Daily Rajwinder Omer MD 40 mg at 05/14/25 0909 [Held by provider] polyethylene glycol (Glycolax, Miralax) packet 17 g 17 g oral Daily Daryl Dickson 17 g at 05/12/25 0940 [Held by provider] pravastatin (Pravachol) tablet 40 mg 40 mg oral Nightly February Evelyn Granda MD 40 mg at 05/12/252124 sennosides (Senokot) tablet 8.6 mg 1 tablet oral Nightly PRN Rajwinder Omer MD Physical Therapy Physical Therapy Treatment Patient Name: Fawn Campos Today's Date: 05/14/2025 Time Calculation Start Time: 954 Stop Time: 1028 Time Calculation (min): 34 min 6081/6081-A Assessment/Plan PT Assessment PT Assessment Results: Decreased strength, Decreased endurance, Impaired balance, Decreased mobility, Pain Rehab Prognosis: Good Barriers to Discharge Home: Caregiver assistance, Physical needs Caregiver Assistance: Caregiver assistance needed per identified barriers - however, level of patient's required assistance exceeds assistance available at home Physical Needs: Stair navigation into home limited by function/safety, Ambulating household distances limited by function/safety, High falls risk due to function or environment, Intermittent mobility assistance needed Evaluation/Treatment Tolerance: Patient tolerated treatment well Medical Staff Made Aware: Yes End of Session Communication: Bedside nurse Assessment Comment: Pt. demonstrates improvement in functional mobility this visit. Goal for next session is OOB to chair. Remains appropraite for high intensity therapy to ensure safety and maximize independence. End of Session Patient Position: Bed, 3 rail up, Alarm on PT Plan Inpatient/Swing Bed or Outpatient: Inpatient PT Plan Treatment/Interventions: Bed mobility, Transfer training, Gait training, Stair training, Balance training, Strengthening, Endurance training, Therapeutic exercise, Therapeutic activity, Home exercise program, Positioning PT Plan: Ongoing PT PT Frequency: 5 times per week PT Discharge Recommendations: High intensity level of continued care PT Recommended Transfer Status: Assist x1 PT - OK to Discharge: Yes General Visit Information: PT Visit PT Received On: 05/14/25 Response to Previous Treatment: Patient with no complaints from previous session. General Reason for Referral: fall, +LOC, nondisplaced orbital fx, R frontal SDH, R LC1 pelvic ring injury Past Medical History Relevant to Rehab: s/p L GABO 10y ago at OSH, s/p L rTSA 6y ago at OSH, CAD, TIA, AAA, GERD Family/Caregiver Present: No Prior to Session Communication: Bedside nurse Patient Position Received: Bed, 3 rail up, Alarm on General Comment: Pt. supine in bed, pleasant and agreeable to participate. Demonstrates improved functional mobility this visit but continues to demonstrate difficulty with SLS for limb advancement. Subjective Precautions: Precautions LE Weight Bearing Status: Weight Bearing as Tolerated Medical Precautions: Fall precautions, Oxygen therapy device and L/min Precautions Comment: SBP <160, sinus precautions Vital Signs: Vital Signs Vitals Session: During PT Heart Rate: 89 Heart Rate Source: Monitor SpO2: 96 % BP: 158/67 Objective Pain: Pain Assessment Pain Assessment: 0-10 0-10 (Numeric) Pain Score: 0 - No pain Cognition: Cognition Overall Cognitive Status: Within Functional Limits Orientation Level: Oriented X4 Insight: Within function limits Impulsive: Within functional limits Processing Speed: Within funtional limits Postural Control: Postural Control Postural Control: Impaired (increased trunk flexion in standing) Activity Tolerance: Activity Tolerance Endurance: Tolerates 30 min exercise with multiple rests Treatments: Therapeutic Exercise Therapeutic Exercise Performed: Yes Therapeutic Exercise Activity 1: seated EOB: APS x 10, LAQ x 10, marching x 10 Therapeutic Activity Therapeutic Activity Performed: Yes Therapeutic Activity 1: bed mobility, transfers, gait trial Bed Mobility Bed Mobility: Yes Bed Mobility 1 Bed Mobility 1: Rolling right, Rolling left Level of Assistance 1: Moderate assistance Bed Mobility Comments 1: for griselda care and linen change at start of session Bed Mobility 2 Bed Mobility 2: Supine to sitting, Sitting to supine Level of Assistance 2: Moderate assistance, Moderate verbal cues Bed Mobility Comments 2: HOB elevated, increased time and cues for sequencing Bed Mobility 3 Bed Mobility 3: Scooting Level of Assistance 3: Dependent Bed Mobility Comments 3: boost with +trendelenburg to reposition at end of sesion Ambulation/Gait Training Ambulation/Gait Training Performed: No (attempted side step at EOB with +buckling and increased pain. Unable to tolerate SLS for limb advancement. Attempted heel-toe pivot to advance, pt.reports feeling clammy with +fatigue. Requesting to return to sitting.) Transfers Transfer: Yes Transfer 1 Technique 1: Sit to stand, Stand to sit Transfer Device 1: Walker Transfer Level of Assistance 1: Moderate assistance Trials/Comments 1: cues for safety/sequencing. Manual A to facilitate full hip extension. Stairs Stairs: No Outcome Measures: [facility] Basic Mobility Turning from your back to your side while in a flat bed without using bedrails: A lot Moving from lying on your back to sitting on the side of a flat bed without using bedrails: A lot Moving to and from bed to chair (including a wheelchair): A lot Standing up from a chair using your arms (e.g. wheelchair or bedside chair): A lot To walk in hospital room: A lot Climbing 3-5 steps with railing: Total Basic Mobility - Total Score: 11 Education Documentation Precautions, taught by Criss Zaragoza PT at 05/14/2025 1:08 PM. Learner: Patient Readiness: Acceptance Method: Explanation Response: Verbalizes Understanding Body Mechanics, taught by Criss Zaragoza PT at 05/14/2025 1:08 PM. Learner: Patient Readiness: Acceptance Method: Explanation Response: Verbalizes Understanding Mobility Training, taught by Criss Zaragoza PT at 05/14/2025 1:08 PM. Learner: Patient Readiness: Acceptance Method: Explanation Response: Verbalizes Understanding Education Comments No comments found. EDUCATION: Encounter Problems Encounter Problems (Active) PT Problem Pt will perform supine<>sit with SBA (Progressing) Start: 05/11/25 Expected End: 05/25/25 Pt will perform sit<>stand with LRAD and SBA (Progressing) Start: 05/11/25 Expected End: 05/25/25 Pt will ambulate >50ft with LRAD and supervision (Progressing) Start: 05/11/25 Expected End: 05/25/25 Pt will ascend/descend single step with LRAD and SBA (Progressing) Start: 05/11/25 Expected End: 05/25/25 Speech-Language Pathology Adult Inpatient Clinical Bedside Swallow Evaluation Patient Name: Fawn Campos Today's Date: 05/14/2025 Start Time: 935 Stop Time: 950 Time Calculation (min): 15 History of Present Illness: 89 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 Assessment: Clinical bedside swallow evaluation completed. Pt cleared for evaluation by RN. Received awake/alert and upright in bed for session. A&Ox4. Oral mechanism examination WNL. Consistently cooperative/able to follow commands and responded appropriately to conversation/questions by [employer]STRUMENTATION [employer]CH[employer]IC. Endorses difficulty swallowing characterized by coughing w/ liquids the previous date; pt reports dysphagia not at baseline. Weak volitional cough prior to administration of PO trials Trials of ice chips, tsp sips water, single/consecutive sips water via straw, and 3 oz protocol via cup were given. Normal oral management of all trials. Overt clinical s/s aspiration w/ consecutive sips water via straw and successful completion of 3 oz protocol via cup characterized by multiple audible swallows per bolus and immediate weak/prolonged coughing. No further trials given 2/2 c/f aspiration. Unable to determine swallowing safety/efficiency at the bedside. Recommend MBSS to instrumentally evaluate swallow function/determine least restrictive diet; will complete as orders placed/radiology schedule permits. Recommend NPO w/ frequent aggressive oral care until MBSS can be completed. 10 ice chips per hr allowed for pleasure, safe swallow stimulation, and after oral care to prevent buildup of bacteria within the oropharynx. RN/MD aware. Extensive education/treatment provided to pt following completion of session re: results/recommendations and dysphagia POC. Pt verbalized understanding. Recommendations: NPO with frequent aggressive oral care. 10 ice chips/hr allowed for pleasure, safe swallow stimulation, and after oral care to prevent buildup of bacteria within the oropharynx MBSS to instrumentally evaluate swallow function/determine least restrictive diet; will complete as orders placed/radiology schedule permits Goal: Pt/caregiver/family will demonstrate adequate return of knowledge re: dysphagia POC/diet recommendations/safe swallowing guidelines w/ 100% acc to effectively assist the patient in immediate safety with oral intake and swallowing. Start Date: 05/14/2025 End Date: 06/14/2025 Status: Goal Initiated this date Pt will tolerate least restrictive diet with no overt clinical s/s aspiration 100% of the time. 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 Inpatient Education: Extensive education provided to patient regarding current swallow function, recommendations/results, and POC. Consultations/Referrals/Coordina tion of Services: N/A Physical Therapy Therapy Communication Note Patient Name: Fawn Campos Department: [place] [address] Room: [address] [place] [address] Today's Date: 05/13/2025 Discipline: Physical Therapy Missed Visit: PT Missed Visit: Yes Missed Visit Reason: Missed Visit Reason: Patient refused (Pt reports having increased pain and fatigeu this date and just finished getting cleaned up. Pt does report mobilizing earlier this date. Will reattempt PT as able.) RN aware. Missed Time: Attempt Keren Mcclelland PT, DPT [facility] TRAUMA SERVICE - PROGRESS NOTE Patient Name: Fawn Cameron Admit Date: [id number] : 1935 AGE: 89 y.o. 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 LOC (yes/no?): Yes Anticoagulant / Anti-platelet Rx? 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 (1.2 cm) TODAY'S ASSESSMENT AND PLAN OF CARE: # Right parietal SAH # L frontal lobe extra-axial hemorrhage - Repeat CTH 11PM 05/10 stable - Q4h neurochecks - Keppra 500mg BID for total 7 days (EOT 05/17) - Ok to restart ASA 81mg at post bleed day 7 (05/17) # R orbital roof fracture - ENT consulted - non operative - Sinus precautions - Ophthalmology consulted - no evidence of muscle entrapment # Bilateral pubic rami fractures with extension into the acetabular wall # Nondisplaced sacral ala fracture on right - Orthopedic consulted - non operative, trial of ambulation with PT/OT - WBAT BLLE # Comorbidities # Functional decline - Syncopal work-up: EKG, trop wnl, orthostats + - Geriatrics consulted, recs appreciated > start vitamin D 5000 (for 8 weeks then 2000 indefinitely), vitamin B-12 > consider resuming alfazosin if e/o retention on bladder scan - continue home metop, PPI, statin #mild leukocytosis - 12.4 from 10.8; afebrile, no new symptoms, will CTM - Regular diet - PT/OT eval - high intensity - SW consult for placement - DVT ppx: SCDs, started lovenox this AM - GI ppx: Home PPI for GERD - Dispo: [facility] care, pending acute rehab Seen and d/w attending, Dr. Bravo Omer MD PGY-1, Trauma Surgery CHIEF COMPLAINT / OVERNIGHT EVENTS: NAEON. Vitally stable. Doing well today. Minimal pain in his hips, well managed, improving. Tolerating diet (>50% of meals), has been working with PT. No new issues or concerns today. MEDICAL HISTORY / ROS: Admission history and ROS reviewed. Pertinent changes as follows: None PHYSICAL EXAM: Heart Rate: [72-88] Temp: [36.4 C (97.5 F)-37 C (98.6 F)] Resp: [8-18] BP: (110-153)/(56-77) SpO2: [86 %-97 %] Physical Exam Vitals and nursing note reviewed. Constitutional: Appearance: Normal appearance. HENT: Head: Normocephalic. Comments: 3 cm lacerations just above the right brow with [address] face and head otherwise atraumatic, midface stable, no malocclusion Eyes: Extraocular Movements: Extraocular movements intact. Pupils: Pupils are equal, round, and reactive to light. Cardiovascular: Rate and Rhythm: Normal rate and regular rhythm. Pulmonary: Effort: No respiratory distress. Abdominal: General: There is no distension. Palpations: Abdomen is soft. Tenderness: There is no abdominal tenderness. Musculoskeletal: Cervical back: Normal range of motion. Comments: Range of motion decreased bilateral hips due to pain, muscle strength 5/5 bilateral upper and lower extremities Skin: General: Skin is warm. Capillary Refill: Capillary refill takes less than 2 seconds. Comments: Skin tears present on the dorsal right hand/knuckles and forearm without any active bleeding, wrapped with gauze; bilateral forearm ecchymoses Neurological: Mental Status: He is alert. Mental status is at baseline. IMAGING SUMMARY: (summary of new imaging findings, not a copy of dictation) None LABS: Results from last 7 days Lab Units 05/13/25 0705 05/11/25 0431 05/10/25 1422 WBC AUTO x10*3/uL 12.4* 10.7 10.7 HEMOGLOBIN g/dL 10.8* 11.4* 12.3* HEMATOCRIT % 35.0* 32.9* 36.3* PLATELETS AUTO x10*3/uL 151 204 213 NEUTROS PCT AUTO % -- -- 78.1 LYMPHS PCT AUTO % -- -- 9.4 MONOS PCT AUTO % -- -- 9.7 EOS PCT AUTO % -- -- 1.0 Results from last 7 days Lab Units 05/10/25 1422 APTT seconds 29 INR 1.1 Results from last 7 days Lab Units 05/13/25 0705 05/12/25 1139 05/11/25 0431 SODIUM mmol/L 140 139 139 POTASSIUM mmol/L 4.2 3.5 3.6 CHLORIDE mmol/L 107 109* 104 CO2 mmol/L 24 22 30 BUN mg/dL 22 18 21 CREATININE mg/dL 0.62 0.66 0.89 CALCIUM mg/dL 8.0* 7.2* 8.5* GLUCOSE mg/dL 90 81 124* I have reviewed all medications, laboratory results, and imaging pertinent for today's encounter. Cosigned by Dorian Cordon MD at 05/13/2025 1:56 PM EDT Associated attestation - Dorian Cordon MD - 05/13/2025 1:56 PM EDT I have seen and evaluated the patient, reviewed the labs and imaging, and discussed the patient with the multidisciplinary team. I have edited the note and/ or placed an addendum below. I agree with assessment and plan as documented. 89M on ASA81, found down with the following injuries: R orbital floor+ roof fx 2mm R SDH, stable on repeat CTH tSAH: Stable on repeat CTH Bilateral pubic rami fx w/ acetabular extension Sacral ala fx PLAN -q4hNC, Keppra till 05/17 -Resume pLov today. Resume ASA81 on 05/17 -Facial fx: No operative intervention -B/L pubic rami fx: Non-op -Appreciate Geriatric's recommendation -PT/OT: Rehab -Syncope workup: EKG NSR, trop (-), pending orthostatics Occupational Therapy Evaluation/Treatment Patient Name: Fawn Campos Department: [place] [address] Room: [id number] Today's Date: 05/13/25 Time Calculation Start Time: 08 Stop Time: 905 Time Calculation (min): 28 min Assessment: OT Assessment: difficulty I/ADLS, safety, fxnl mob Prognosis: Good Barriers to Discharge Home: Physical needs Physical Needs: 24hr mobility assistance needed, 24hr ADL assistance needed, High falls risk due to function or environment Evaluation/Treatment Tolerance: Patient tolerated treatment well Medical Staff Made Aware: Yes End of Session Communication: Bedside nurse End of Session Patient Position: Bed, 3 rail up, Alarm on OT Assessment Results: Decreased ADL status, Decreased upper extremity strength, Decreased endurance, Decreased functional mobility, Decreased IADLs Prognosis: Good Evaluation/Treatment Tolerance: Patient tolerated treatment well Medical Staff Made Aware: Yes Strengths: Attitude of self Barriers to Participation: Comorbidities Plan: Treatment Interventions: ADL retraining, Functional transfer training, UE strengthening/ROM, Endurance training, Patient/family training, Equipment evaluation/education, Compensatory technique education OT Frequency: 3 times per week (during acute care) OT Discharge Recommendations: High intensity level of continued care Equipment Recommended upon Discharge: (BSC, wheelchair, WhW, hip kit) OT Recommended Transfer Status: Assist of 1 OT - OK to Discharge: Yes Treatment Interventions: ADL retraining, Functional transfer training, UE strengthening/ROM, Endurance training, Patient/family training, Equipment evaluation/education, Compensatory technique education Subjective Current Problem: 1. Fall, initial encounter 2. Open fracture of roof of right orbit, initial encounter (Multi) 3. Closed bilateral fracture of pubic rami, initial encounter (Multi) 4. SAH (subarachnoid hemorrhage) (Multi) OT Visit Info: OT Received On: 05/13/25 General Visit Info: General Reason for Referral: fall, +LOC, nondisplaced orbital fx, R frontal SDH, R LC1 pelvic ring injury Past Medical History Relevant to Rehab: s/p L GABO 10y ago at OSH, s/p L rTSA 6y ago at OSH, CAD, TIA, AAA, GERD Family/Caregiver Present: No Prior to Session Communication: Bedside nurse Patient Position Received: Bed, 3 rail up, Alarm on General Comment: extended time all mob (pt reported h/o L broken rib ~4 weeks ago at chiropractor, RN notified) Precautions: LE Weight Bearing Status: Weight Bearing as Tolerated Medical Precautions: Fall precautions, Oxygen therapy device and L/min Pain: Pain Assessment Pain Assessment: 0-10 0-10 (Numeric) Pain Score: 8 Pain Location: (pelvis) Objective Cognition: Overall Cognitive Status: Within Functional Limits Orientation Level: Oriented X4 Insight: Within function limits Home Living: Type of Home: House Lives With: Spouse Home Adaptive Equipment: Cane Home Layout: Two level, Able to live on main level with bedroom/bathroom Home Access: Stairs to enter with rails Entrance Stairs-Number of Steps: 1 DYLAN, 1 additional step Bathroom Shower/Tub: Walk-in shower Bathroom Equipment: Built-in shower seat Prior Function: Level of [place]: Independent with ADLs and functional transfers, Independent with homemaking with ambulation Vocational: 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 IADL History: IADL Comments: I IADLs +drive ADL: Eating Assistance: (ate end of session I setup) Grooming Assistance: (pt performed oral care I sup setup, anticipate max A standing) Bathing Assistance: (max A anticipated AE) UE Dressing Assistance: (mod A adjust and jose elias gown EOB) LE Dressing Assistance: (max A jose elias B socks EOB) Toileting Assistance with Device: (max A anticipated WHW) Functional Deficit: Setup, Steadying, Verbal cueing, Supervision/safety, Increased time to complete Activity Tolerance: Endurance: (fair) Bed Mobility/Transfers: Bed Mobility Bed Mobility: (sup to sit mod A, sit to sup max A x2, boost in bed max A x2) Transfers Transfer: (3x sit/stand WhW max A to mod A, extended seated rest break in between each) Functional Mobility: Functional Mobility Functional Mobility Performed: (pt att to scoot 2x to L HOB MAX A) Sitting Balance: Dynamic Sitting Balance Dynamic Sitting-Level of Assistance: (seated EOB > 15 min CGA) Standing Balance: Dynamic Standing Balance Dynamic Standing-Level of Assistance: Maximum assistance (WHW) Vision:Vision - Basic Assessment Current Vision: Wears glasses all the time Sensation: Light Touch: No apparent deficits Strength: Strength Comments: R shoulder 3-/5, distal 3+/5, L shoulder 3+/5, distal WFL Coordination: Movements are Fluid and Coordinated: Yes Hand Function: Hand Function Gross Grasp: Functional Extremities: RUE RUE : (shoulder flex ~0-60 distal WFL) and LUE LUE: (shoulder flex ~0-90 distal WFL) Outcome Measures: [facility] Daily Activity Putting on and taking off regular lower body clothing: A lot Bathing (including washing, rinsing, drying): A lot Putting on and taking off regular upper body clothing: A lot Toileting, which includes using toilet, bedpan or urinal: A lot Taking care of personal grooming such as brushing teeth: A little Eating Meals: None Daily Activity - Total Score: 15 and OT Adult Other Outcome Measures 4AT: - Education Documentation Body Mechanics, taught by Ilda Hutson OT at 05/13/2025 10:52 AM. Learner: Patient Readiness: Acceptance Method: Explanation, Demonstration Response: Verbalizes Understanding, Needs Reinforcement Comment: daylin hennessy ADLS Precautions, taught by Ilda Hutson OT at 05/13/2025 10:52 AM. Learner: Patient Readiness: Acceptance Method: Explanation, Demonstration Response: Verbalizes Understanding, Needs Reinforcement Comment: daylin hennessy ADLS ADL Training, taught by Ilda Hutson OT at 05/13/2025 10:52 AM. Learner: Patient Readiness: Acceptance Method: Explanation, Demonstration Response: Verbalizes Understanding, Needs Reinforcement Comment: fxnl mob ADLS Education Comments No comments found. Goals: Encounter Problems Encounter Problems (Active) ADLs Patient will perform UB and LB bathing with stand by assist level of assistance and ae. (Progressing) Start: 05/13/25 Expected End: 06/03/25 Patient with complete upper body dressing with independent level of assistance (Progressing) Start: 05/13/25 Expected End: 06/03/25 Patient with complete lower body dressing with stand by assist level of assistance donning and doffing all LE clothes with PRN adaptive equipment (Progressing) Start: 05/13/25 Expected End: 06/03/25 Patient will complete daily grooming tasks with independent level of assistance (Progressing) Start: 05/13/25 Expected End: 06/03/25 Patient will complete toileting including hygiene clothing management/hygiene with minimal assist level of assistance and lrd. (Progressing) Start: 05/13/25 Expected End: 06/03/25 EXERCISE/STRENGTHENING Patient with increase BUE to wfl strength. (Progressing) Start: 05/13/25 Expected End: 06/03/25 MOBILITY Patient will perform Functional mobility mod Household distances/Community Distances with moderate assist level of assistance and least restrictive device in order to improve safety and functional mobility. (Progressing) Start: 05/13/25 Expected End: 06/03/25 TRANSFERS Patient will perform bed mobility minimal assist level of assistance and bed rails in order to improve safety and independence with mobility (Progressing) Start: 05/13/25 Expected End: 06/03/25 Patient will complete functional transfer least restrictive device with minimal assist level of assistance. (Progressing) Start: 05/13/25 Expected End: 06/03/25 Images from the original note were not included. Subjective Updates: - orthostats positive: laying BP 128/88 HR 88, sitting BP 138/70 HR 80 - 1 stool today 0253 NAONE. No acute complaints. States pain is well controlled at rest. Objective Current Medications[1] Physical Exam Constitutional: Appearance: Normal appearance. HENT: Head: Normocephalic. Comments: 3 cm lacerations just above the right brow with [address] Eyes: Extraocular Movements: Extraocular movements intact. Pupils: Pupils are equal, round, and reactive to light. Cardiovascular: Rate and Rhythm: Normal rate and regular rhythm. Pulmonary: Effort: No respiratory distress. Abdominal: General: There is no distension. Palpations: Abdomen is soft. Tenderness: There is no abdominal tenderness. Musculoskeletal: Cervical back: Normal range of motion. Comments: Range of motion decreased bilateral hips due to pain, muscle strength 5/5 bilateral lower extremities Skin: General: Skin is warm. Capillary Refill: Capillary refill takes less than 2 seconds. Comments: Skin tears present on the dorsal right hand/knuckles and forearm without any active bleeding, wrapped with gauze; bilateral forearm ecchymoses Confusion Assessment Method(CAM) for diagnosis of delirium: 1. Acute onset or fluctuating course: absent 2. Inattention: absent 3. Disorganized thinking: absent 4. Altered level of consciousness: absent CAM: negative AT Score For Assessment of Delirium and Cognitive Impairment: Alertness: 0 Normal(fully alert,but not agitated, throughout assessment)=0 Mild sleepiness for <10 seconds after walking, then normal=0 Clearly abnormal=4 2. AMT4: 0 No mistakes=0 One mistake=1 Two or more mistakes/untestable=2 3. Attention: 0 Achieves seven months or more correctly=0 Starts but scores <7 months/ refuses to start=1 Untestable(cannot start because unwell, drowsy, inattentive)=2 4. Acute: 0 No=0 Yes=4 Total Score: 0 4 or above: Possible delirium +/- cognitive impairment 1-3: Possible cognitive impairment 0: Delirium or severe cognitive impairment unlikely(but delirium still possible if (4) information incomplete) Last Recorded Vitals 05/12/2025 6:00 PM 05/12/2025 7:00 PM 05/12/2025 8:00 PM 05/12/2025 9:00 PM 05/12/2025 9:25 PM 05/12/2025 10:00 PM 05/13/2025 2:50 AM Vitals Systolic 126 116 117 122 122 110 134 Diastolic 72 62 64 71 71 67 71 BP Location Right arm Right arm Right arm Heart Rate 87 82 75 86 76 72 85 Temp 36.4 C (97.5 F) Resp 12 17 18 18 8 14 Vitals: 05/10/25 2157 Weight: 66.2 kg (146 lb) Relevant Results Lab Results Component Value Date TSH 4.88 (H) 05/12/2025 [id number] 283 05/12/2025 VITD25 18 (L) 05/12/2025 Results from last 7 days Lab Units 05/12/25 1139 05/11/25 0431 05/10/25 1422 WBC AUTO x10*3/uL -- 10.7 10.7 HEMOGLOBIN g/dL -- 11.4* 12.3* HEMATOCRIT % -- 32.9* 36.3* SODIUM mmol/L 139 139 138 POTASSIUM mmol/L 3.5 3.6 3.9 CHLORIDE mmol/L 109* 104 106 CREATININE mg/dL 0.66 0.89 0.77 BUN mg/dL 18 21 26* CO2 mmol/L 22 30 26 INR -- -- 1.1 XR cervical spine 2-3 views Result Date: 05/09/2025 Impression: 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 MACRO: None Signed by: Clement Estevez 05/09/2025 8:28 AM Dictation workstation: [id number] ECG 12 lead Normal sinus rhythm Normal ECG When compared with ECG of 07-DEC-2023 09:54, Premature atrial complexes are no longer Present See ED provider note for full interpretation and clinical correlation Confirmed by Brandee Hawkins ([id number]) on 05/11/2025 1:16:43 PM XR pelvis With [place] views Narrative: Interpreted By: Wanda Montalvo, and Spenser Jenkins STUDY: XR PELVIS WITH INLET OUTLET JUDET VIEWS; ; 05/11/2025 4:18 am INDICATION: Signs/Symptoms:eval. COMPARISON: CT chest abdomen pelvis 05/10/2025. ACCESSION NUMBER(S): [id number] ORDERING CLINICIAN: LEONARDO BERGER FINDINGS: Five view radiographs of the pelvis were performed. Generalized diffuse osteopenia. 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 Fractures of the right superior and inferior pubic rami are noted, better visualized on prior CT. Acute bilateral acetabular and right sacral alar fractures are better appreciated on comparison CT chest abdomen pelvis. Status post left hip arthroplasty. No perihardware lucency to suggest loosening. Degenerative changes of the lower lumbar spine, SI joints and symphysis pubis. Radiopaque contrast within the bladder. Vascular calcifications noted. Impression: Acute pubic rami, acetabular, and right sacral ala fractures are better appreciated on comparison CT chest abdomen pelvis. Please refer to separate report of dedicated CT for detail. Postsurgical and degenerative changes as noted above. I personally reviewed the images/study and I agree with the findings as stated by Gregory Dueñas MD (PGY-3). This study was interpreted at [place], [place]. MACRO: None Signed by: Wanda Montalvo 05/11/2025 5:01 AM Dictation workstation: [id number] XR chest 1 view Narrative: STUDY: Chest Radiograph; 05/11/2025 1:13AM INDICATION: Evaluation for surgery trauma. COMPARISON: 09/23/2022 XR chest ACCESSION NUMBER(S): [id number] ORDERING CLINICIAN: SANTIAGO MENENDEZ TECHNIQUE: Frontal chest was obtained at 01:12 hours. FINDINGS: CARDIOMEDIASTINAL SILHOUETTE: Cardiomediastinal silhouette is normal in size and configuration. Mural calcifications through the aortic arch. LUNGS: No regions of consolidation. No regions of atelectasis. ABDOMEN: No remarkable upper abdominal findings. BONES: No acute osseous changes. Impression: No acute pleural or parenchymal disease.. Signed by Isidoro Baltazar MD ECG 12 lead Normal sinus rhythm Normal ECG When compared with ECG of 10-MAY-2025 13:54, No significant change was found See ED provider note for full interpretation and clinical correlation Confirmed by Yolanda Garcia ([id number]) on 05/11/2025 3:47:[address] head wo IV contrast Narrative: Interpreted By: Wanda Montalvo and Omar Mahmoud STUDY: CT HEAD WO IV CONTRAST; 05/10/2025 11:27 pm INDICATION: Signs/Symptoms:Trauma, intracranial bleeding. Stability scan. COMPARISON: CT head without IV contrast 05/10/2025 3:03 p.m.. ACCESSION NUMBER(S): [id number] ORDERING CLINICIAN: CARRI GREER TECHNIQUE: Noncontrast axial CT scan of head was performed. Angled reformats in brain and bone windows were generated. The images were reviewed in bone, brain, blood and soft tissue windows. FINDINGS: CSF Spaces: The ventricles, sulci and basal cisterns are within normal limits. Similar size and appearance of extra-axial hemorrhage along the anterolateral right frontal lobe (series 204, image 49) currently measuring 3 mm in thickness (series 206, image 39), previously measuring 2 mm. Parenchyma: There is mild periventricular and subcortical white matter hypodensities, similar as compared to prior and likely represents sequela of chronic microvascular ischemic changes. No new loss of callaway-white differentiation. There is no mass effect or midline shift. Several linear foci of hyperattenuation noted along the sulci right parietal lobe suspicious for subarachnoid hemorrhage. A subtle hyperdense focus is redemonstrated along the left frontal lobe as seen on axial image 60 of series 204. This is suspicious for small focus of extra-axial hemorrhage. No new hemorrhage is identified. Calvarium: Redemonstrated minimally displaced acute fracture of the right orbital roof (series 206 image 40). Soft tissue laceration right frontal scalp extending to the zygoma. Paranasal sinuses and mastoids: Visualized paranasal sinuses and mastoids are clear. Atherosclerotic calcification of the carotid siphons and vertebral arteries Impression: Redemonstration of minimally displaced acute fracture of the right orbital roof with stable extra-axial hemorrhage along the anterolateral right frontal lobe. Additional linear hyperdense foci along the sulci right parietal lobe suspicious for subarachnoid hemorrhage. No new hemorrhage is identified. Question subtle hyperdense focus along the left frontal lobe opacity described above may relate to small focus of extra-axial hemorrhage. Attention on continued follow-up is advised. I personally reviewed the images/study and I agree with the findings as stated by Gregory Dueñas MD (PGY-3). This study was interpreted at [place], [place]. MACRO: None Signed by: Wanda Montalvo 05/11/2025 12:03 AM Dictation workstation: [id number] DATA: EKG: QTC Encounter Date: 05/10/25 ECG 12 lead Result Value Ventricular Rate 72 Atrial Rate 72 [place] Interval 190 QRS Duration 104 QT Interval 394 QTC Calculation(Bazett) 431 P [place] 31 R [place] -15 T [place] 44 QRS Count 12 Q Onset 210 P Onset 115 P Offset 178 T Offset 407 QTC [place] 418 Narrative Normal sinus rhythm Normal ECG When compared with ECG of 10-MAY-2025 13:54, No significant change was found See ED provider note for full interpretation and clinical correlation Confirmed by Yolanda Garcia ([id number]) on 05/11/2025 3:47:31 AM Anti-psychotics in 48 hours: Opioids/Benzodiazepines in 48 hours: Anticholinergics on board:No Restraints:No Indwelling catheters:Yes - bed bound Last BM: AM today UO in 24 hours: 150ml Activity in the past 24 hours: Need for ambulatory devices: Assessment/Plan Fawn Campos is a 89 y.o. male on day 2 of admission presenting with Fall, initial encounter. Principal Problem: Fall, initial encounter This is a/an 89 y.o. year old male, with past medical history relevant for AAA, infrarenal aneurysm, HTN, HLD, CAD (on ASA) presented after an unwitnessed fall, found to have injuries to the R orbital floor, Mild buckled fracture of the RT anterior cranial floor/orbital roof, Small RT (2 mm) subdural hematoma, Trace right frontal subarachnoid hematoma, Bilateral pubic rami fractures with extension into the acetabular wall, Nondisplaced sacral ala fracture on right. Geriatrics was consulted due to advanced age falls. Acute Fall - cause unclear; orthostasis vs. Arhythmia vs. Autonomia vs. Polypharmacy -Patient currently orthostatic. - orthostats positive: laying BP 128/88 HR 88, sitting BP 138/70 HR 80 - EKG/trops negative on admission, QTC 431, telemetry NSR - Lipid panel normal, no A1c - vit d low at 18; recommend high dose Vit D supplementation at 50,000iu for 8 weeks followed by 2000iu daily indefinitely - Encourage po intake - Hx of being on alendronate, no evidence of osteoporosis/ DEXA Needs to follow-up in the outpatient 2. Polypharmacy - on several home peripheral vasodilators that can cause orthostasis and hypotension (alfuzosin, amlodipine, benazepril, metoprolol) - amitryptyline and alfuzosin are anticholinergic and can cause sedation/ weakness/ hypotension - alfuzosin, amlodipine, benazepril and amitryptyline have been held since admission; continue to hold and DO NOT resume on discharge 3. HTN - alfuzosin, amlodipine, benazepril have been held since admission; continue to hold and DO NOT resume on discharge - BP has been stable - If BP becomes elevated/unstable, consider restarting alfuzosin due to history of BPH/urinary retention/frequency; bladder scan first 4. Constipation - schedule miralax daily - make senna and bisacodyl PRN vs. Scheduled - titrate to 1BM daily 5. Urinary Retention - consider restarting alfuzosin for urinary retention as needed - bladder scan before restarting alfuzosin 6. Vitamin B12 deficiency - B12 low at 283; recommend supplementation at 1000mg daily 7. Abnormal TSH - TSH 4.88 w/ normal thyroxine 1.15; do not treat or investigate in geriatric population unless TSH >8 Needs to be follow-up in the outpatient Care Transitions: -Recommended level for discharge: acute rehab -Home going considerations: lives alone with -Primary care physician: Don Barrera MD Goals of Care: -Health care power of deputy attorney general: Diya () -Living will: present Code status: FULL CODE Geriatric medicine will continue to follow the patient. Thank you for allowing geriatric medicine to be involved in the care of your patient. Geriatric medicine consultation team is available during work hours Sunday through Sunday. For any emergency issues requiring immediate assistance over the weekend, please page Geriatrics pager [phone] Robb Rsosi DO PGY3 - Family Medicine I saw and evaluated the patient. I personally obtained the de jesus and critical portions of the history and physical exam or was physically present for de jesus and critical portions performed by the resident. I reviewed the resident s documentation and discussed the patient with the resident. I agree with the resident s medical decision making as documented in their note with the exception/addition of the following: See comments in italics Zahira Douglas MD [1] Current Facility-Administered Medications Medication Dose Route Frequency Provider Last Rate Last Admin acetaminophen (Tylenol) tablet 650 mg 650 mg oral q6h KIKA Daryl Dickson 650 mg at 05/13/25 0252 bisacodyl (Dulcolax) EC tablet 5 mg 5 mg oral Daily Yoav Forte MD levETIRAcetam (Keppra) tablet 500 mg 500 mg oral BID February Evelyn Granda MD 500 mg at 05/12/252124 metoprolol tartrate (Lopressor) tablet 12.5 mg 12.5 mg oral BID February Evelyn Granda MD 12.5 mg at 05/12/252124 ondansetron (Zofran) tablet 4 mg 4 mg oral q8h PRN Daryl Dickson Or ondansetron (Zofran) injection 4 mg 4 mg intravenous q8h PRN Daryl Dickson oxyCODONE (Roxicodone) immediate release tablet 2.5 mg 2.5 mg oral q6h PRN Daryl Dickson 2.5 mg at 05/11/25 1849 oxyCODONE (Roxicodone) immediate release tablet 5 mg 5 mg oral q4h PRN Daryl Dickson 5 mg at 05/13/25 0252 oxygen (O2) therapy inhalation Continuous - O2/gases Daryl Dickson oxymetazoline (Afrin) 0.05 % nasal spray 2 spray 2 spray Each Nostril q12h PRN Daryl Dickson pantoprazole (ProtoNix) EC tablet 40 mg 40 mg oral Daily before breakfast Daryl Randolph 40 mg at 05/13/25 0617 polyethylene glycol (Glycolax, Miralax) packet 17 g 17 g oral Daily Daryl Dickson 17 g at 05/12/25 0940 pravastatin (Pravachol) tablet 40 mg 40 mg oral Nightly February Evelyn Granda MD 40 mg at 05/12/252124 sennosides (Senokot) tablet 8.6 mg 1 tablet oral Nightly Yoav Forte MD Physical Therapy Physical Therapy Physical Therapy Treatment Patient Name: Fawn Campos Today's Date: 05/12/2025 Time Calculation Start Time: 1152 Stop Time: 1221 Time Calculation (min): 29 min [id number] Assessment/Plan PT Assessment PT Assessment Results: Decreased strength, Decreased endurance, Impaired balance, Decreased mobility, Pain Rehab Prognosis: Good Barriers to Discharge Home: Caregiver assistance, Physical needs Caregiver Assistance: Caregiver assistance needed per identified barriers - however, level of patient's required assistance exceeds assistance available at home Physical Needs: Stair navigation into home limited by function/safety, Ambulating household distances limited by function/safety, High falls risk due to function or environment, Intermittent mobility assistance needed End of Session Communication: Bedside nurse Assessment Comment: patient with improved tolerance to activity. Pain continues to be limiting factor. patient is motivated to improve End of Session Patient Position: Bed, 2 rail up (positioned on partial right side for comfort) PT Plan Treatment/Interventions: Bed mobility, Transfer training, Gait training, Stair training, Balance training, Strengthening, Endurance training, Therapeutic exercise, Therapeutic activity, Home exercise program, Positioning PT Plan: Ongoing PT PT Frequency: 5 times per week PT Discharge Recommendations: High intensity level of continued care PT Recommended Transfer Status: Assist x2 PT - OK to Discharge: Yes (meaning PT eval complete and d/c recommendation made) Current Problem: Problem List[1] General Visit Information: PT Visit PT Received On: 05/12/25 Response to Previous Treatment: Patient with no complaints from previous session. General Prior to Session Communication: Bedside nurse Patient Position Received: Bed, 2 rail up (ED cart) General Comment: patient supine in bed. States he feels a little better today, motivated to participate Subjective Precautions: Precautions LE Weight Bearing Status: Weight Bearing as Tolerated Medical Precautions: Fall precautions, Oxygen therapy device and L/min (2L NC) Precautions Comment: SBP <160, sinus precautions Vital Signs: Vital Signs Vital Signs Comment: nursing reports they did orthostatics today supine and sitting with no drop in BP Objective Pain: Pain Assessment Pain Assessment: (patient with pain in movement of right leg > left leg. Pain with sitting and standing. Patient did not rate pain. Patient reports pain more tolerable today than yesterday) Cognition: Cognition Orientation Level: Oriented X4 Activity Tolerance: Activity Tolerance Endurance: Tolerates 30 min exercise with multiple rests Treatments: Therapeutic Exercise Therapeutic Exercise Performed: Yes Therapeutic Exercise Activity 1: supine ankle pumps and quad sets. AAROM heel slides and hip abduction, range within patients tolerance Seated LAQ x10 at edge of bed Bed Mobility 1 Bed Mobility 1: Supine to sitting, Sitting to supine Level of Assistance 1: Maximum assistance Bed Mobility Comments 1: max assist x1 with use of draw sheet, extra time to complete. Ambulation/Gait Training Ambulation/Gait Training Performed: No Transfers Transfer: Yes Transfer 1 Technique 1: Sit to stand, Stand to sit Transfer Device 1: Walker Transfer Level of Assistance 1: Moderate assistance Trials/Comments 1: initial attempt to stand at the walker patient unable to come to stand. Performed sit to stand without walker using draw sheet, able to come to stand with mod/max assist and remain standing for 10 seconds. Returned to sitting. Performed additional sit to stand to walker with assist from draw sheet, mod assist to come to stand and able to stand at walker with min assist for 20 seconds. Once returned to sitting, patient reports feeling light headed. Blood pressure stable. Outcome Measures: [facility] Basic Mobility Turning from your back to your side while in a flat bed without using bedrails: A lot Moving from lying on your back to sitting on the side of a flat bed without using bedrails: A lot Moving to and from bed to chair (including a wheelchair): Total Standing up from a chair using your arms (e.g. wheelchair or bedside chair): A lot To walk in hospital room: Total Climbing 3-5 steps with railing: Total Basic Mobility - Total Score: 9 Education Documentation Precautions, taught by Lincoln Andrade PT at 05/12/2025 1:19 PM. Learner: Patient Readiness: Acceptance Method: Explanation Response: Verbalizes Understanding, Needs Reinforcement Comment: bed mobility and transfer techniques. ankle pumps, quad sets and glute sets on own Body Mechanics, taught by Lincoln Andrade PT at 05/12/2025 1:19 PM. Learner: Patient Readiness: Acceptance Method: Explanation Response: Verbalizes Understanding, Needs Reinforcement Comment: bed mobility and transfer techniques. ankle pumps, quad sets and glute sets on own Mobility Training, taught by Lincoln Andrade PT at 05/12/2025 1:19 PM. Learner: Patient Readiness: Acceptance Method: Explanation Response: Verbalizes Understanding, Needs Reinforcement Comment: bed mobility and transfer techniques. ankle pumps, quad sets and glute sets on own Education Comments No comments found. 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, lumbar BPH (benign prostatic hyperplasia) Arthralgia of left thigh Erectile dysfunction 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 Hematuria History of reverse total replacement of left shoulder joint Hyperlipidemia Abdominal aneurysm Hypertension Lumbar radiculopathy DJD (degenerative joint disease), lumbar Lumbosacral spondylosis Migraine with visual aura Nocturia Obstructive sleep apnea syndrome Osteoarthritis Peripheral arterial occlusive disease Shoulder weakness Shoulder pain TIA (transient ischemic attack) Urinary retention Arthritis of left hip Bradycardia Dry eye syndrome Epiretinal membrane (ERM) of left eye Nonexudative age-related macular degeneration, bilateral, early dry stage Onychomycosis Pseudophakia of both eyes Punctate keratitis, bilateral PVD (posterior vitreous detachment), bilateral Status post total replacement of left hip Subjective visual disturbance Inflammatory polyarthropathy (Multi) MARIANGEL (generalized anxiety disorder) Hiatal hernia Back pain Fall, initial encounter 05/12/25 1152 Intensity of Service Intensity of Service 0-30 min Fawn Cameron Andres is a 89 y.o. male on day 1 of admission presenting with Fall, initial encounter. TCC contacted by Fatou from [facility] stating that they would be willing to take patient for acute rehab. Fatou requesting OT eval and updated notes during patient's hospital stay. TCC acknowledged request and the informed patient and his spouse of [facility]'s acceptance and they were both agreeable to utilizing the facility after discharge. Provider made aware. OT contacted in regards to need for eval and assigned staff to patient. TCC will continue to follow patient for discharge planning. DAMIR Rivers [facility] TRAUMA SERVICE - PROGRESS NOTE Patient Name: Fawn Cameron Admit Date: [id number] : 1935 AGE: 89 y.o. 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 LOC (yes/no?): Yes Anticoagulant / Anti-platelet Rx? 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 (1.2 cm) TODAY'S ASSESSMENT AND PLAN OF CARE: # Right parietal SAH # L frontal lobe extra-axial hemorrhage - Repeat CTH 11PM 05/10 stable - Q4h neurochecks - Keppra 500mg BID for total 7 days - Ok to restart ASA 81mg at post bleed day 7 (05/17) # R orbital roof fracture - ENT consulted - non operative - Sinus precautions - Ophthalmology consulted - no evidence of muscle entrapment # Bilateral pubic rami fractures with extension into the acetabular wall # Nondisplaced sacral ala fracture on right - Orthopedic consulted - non operative, trial of ambulation with PT/OT - WBAT BLLE # Comorbidities # Functional decline - Geriatrics consulted - Resume home meds - Regular diet - PT/OT eval - SW consult for placement - DVT ppx: SCDs, subcutaneous lovenox to start 05/13 AM dosing - GI ppx: Home PPI for GERD - Dispo: Admit to floor CHIEF COMPLAINT / OVERNIGHT EVENTS: No new complains. Reports adequate pain control. Slept overnight MEDICAL HISTORY / ROS: Admission history and ROS reviewed. Pertinent changes as follows: None PHYSICAL EXAM: Heart Rate: [50-92] Temperature: [36.7 C (98.1 F)-37.1 C (98.8 F)] Respirations: [11-24] BP: (79-138)/(48-78) Pulse Ox: [93 %-98 %] Physical Exam Vitals and nursing note reviewed. Constitutional: Appearance: Normal appearance. HENT: Head: Normocephalic. Comments: 3 cm lacerations just above the right brow with [address] face and head otherwise atraumatic, midface stable, no malocclusion Eyes: Extraocular Movements: Extraocular movements intact. Pupils: Pupils are equal, round, and reactive to light. Cardiovascular: Rate and Rhythm: Normal rate and regular rhythm. Pulmonary: Effort: No respiratory distress. Abdominal: General: There is no distension. Palpations: Abdomen is soft. Tenderness: There is no abdominal tenderness. Musculoskeletal: Cervical back: Normal range of motion. Comments: Range of motion decreased bilateral hips due to pain, muscle strength 5/5 bilateral upper and lower extremities Skin: General: Skin is warm. Capillary Refill: Capillary refill takes less than 2 seconds. Comments: Skin tears present on the dorsal right hand/knuckles and forearm without any active bleeding, wrapped with gauze; bilateral forearm ecchymoses Neurological: Mental Status: He is alert. Mental status is at baseline. IMAGING SUMMARY: (summary of new imaging findings, not a copy of dictation) None LABS: Results from last 7 days Lab Units 05/11/25 0431 05/10/25 1422 WBC AUTO x10*3/uL 10.7 10.7 HEMOGLOBIN g/dL 11.4* 12.3* HEMATOCRIT % 32.9* 36.3* PLATELETS AUTO x10*3/uL 204 213 NEUTROS PCT AUTO % -- 78.1 LYMPHS PCT AUTO % -- 9.4 MONOS PCT AUTO % -- 9.7 EOS PCT AUTO % -- 1.0 Results from last 7 days Lab Units 05/10/25 1422 APTT seconds 29 INR 1.1 Results from last 7 days Lab Units 05/11/25 0431 05/10/25 1422 SODIUM mmol/L 139 138 POTASSIUM mmol/L 3.6 3.9 CHLORIDE mmol/L 104 106 CO2 mmol/L 30 26 BUN mg/dL 21 26* CREATININE mg/dL 0.89 0.77 CALCIUM mg/dL 8.5* 8.7 GLUCOSE mg/dL 124* 95 I have reviewed all medications, laboratory results, and imaging pertinent for today's encounter. Cosigned by Miguel Ángel Jung MD at 05/19/2025 7:36 PM EDT Associated attestation - Miguel Ángel Jung MD - 05/19/2025 7:36 PM EDT I saw and examined the patient. I discussed the patient's care with the resident/LINDSEY team. I agree with the note with the additions/clarifications below. Late entry for 05/12/25. 89 yo male fall/found down with facial fractures, ICH and pelvic fractures. No acute events. Pain is controlled. On exam, chronically ill appearing. Abd is soft, NT, ND. ALLAN. Plan for diet, pain control, PT, geriatrics evaluation, neuromonitoring, SCDs, Lovenox at 48 hours. 05/11/25 1821 Financial Resource Strain How hard is it for you to pay for the very basics like food, housing, medical care, and heating? Not hard Housing Stability In the last 12 months, was there a time when you were not able to pay the mortgage or rent on time? N In the past 12 months, how many times have you moved where you were living? 0 At any time in the past 12 months, were you homeless or living in a detention (including now)? N Transportation Needs In the past 12 months, has lack of transportation kept you from medical appointments or from getting medications? no In the past 12 months, has lack of transportation kept you from meetings, work, or from getting things needed for daily living? No Fawn Campos is a 89 y.o. male on day 0 of admission presenting with Fall, initial encounter. TCC introduced self and role in care to patient and his who was at bedside. Patient reports living in single family home with his and no pets. He is normally independent for all ADLs and uses no assistive devices but can obtain them through family members. Patient has Medicare and has AARP as a supplement and sees Dr. Barrera at [facility]. Patient denies any housing, transportation or financial concerns. Patient made aware of PT's recommendation of high intensity rehab and is willing to go to acute rehab. TCC gave patient and his a list of nearby acute nursing facilities for review and they selected [facility] and [facility] as their top choices. TCC to send referral via [facility], awaiting response. TCC will continue to follow patient for discharge planning. NOK: Diya Cameron Dialysis: 0 O2: 0 Pharmacy: [facility] (Mail Order) or [facility] Home Health: 0 [facility] Physical Therapy Evaluation & Treatment Patient Name: Andres Cameron Department: [facility]: [place] [id number] [address] Today's Date: 05/11/2025 Time Calculation Start Time: 1232 Stop Time: 1311 Time Calculation (min): 39 min Assessment/Plan PT Assessment PT Assessment Results: Decreased strength, Decreased endurance, Impaired balance, Decreased mobility, Pain Rehab Prognosis: Good Barriers to Discharge Home: Caregiver assistance, Physical needs Caregiver Assistance: Caregiver assistance needed per identified barriers - however, level of patient's required assistance exceeds assistance available at home Physical Needs: Stair navigation into home limited by function/safety, Ambulating household distances limited by function/safety, High falls risk due to function or environment, Intermittent mobility assistance needed End of Session Communication: Bedside nurse Assessment Comment: Pt tolerated PT eval fair. At baseline is indep with mobility without AD, currently limited by pain, dec strength, balance and activity tolerance. Pt needing inc time to complete all mobility, unable to safely progress from standing to allow for pre-gait or ambulation. Team notified. End of Session Patient Position: Bed, 2 rail up (ED cart) IP OR SWING BED PT PLAN Inpatient or Swing Bed: Inpatient PT Plan Treatment/Interventions: Bed mobility, Transfer training, Gait training, Stair training, Balance training, Strengthening, Endurance training, Therapeutic exercise, Therapeutic activity, Home exercise program, Positioning PT Plan: Ongoing PT PT Frequency: 5 times per week PT Discharge Recommendations: High intensity level of continued care PT Recommended Transfer Status: Assist x2 PT - OK to Discharge: Yes (meaning PT eval complete and d/c recommendation made) Subjective PT Visit Info: PT Received On: 05/11/25 General Visit Information: General Reason for Referral: fall, +LOC, nondisplaced orbital fx, R frontal SDH, R LC1 pelvic ring injury Past Medical History Relevant to Rehab: s/p L GABO 10y ago at OSH, s/p L rTSA 6y ago at OSH, CAD, TIA, AAA, GERD Family/Caregiver Present: (, daughter and son in law at bedside upon arrival and left during activity) Prior to Session Communication: Bedside nurse Patient Position Received: Bed, 2 rail up (ED cart) General Comment: Pt supine in bed, pleasant and cooperative, motivated to work with therapy Home Living: Home Living Type of Home: House Lives With: Spouse Home Adaptive Equipment: Cane Home Layout: Two level, Able to live on main level with bedroom/bathroom (pt remains on first floor mostly, bedroom and bathroom on first floor) Home Access: Stairs to enter with rails Entrance Stairs-Number of Steps: 1 curb step with railing to porch and 1 additional threshold step in doorway Bathroom Shower/Tub: Walk-in shower Bathroom Equipment: Built-in shower seat Prior Level of Function: Prior Function Per Pt/Caregiver Report Level of [place]: Independent with ADLs and functional transfers, Independent with homemaking with ambulation ADL Assistance: Independent Homemaking Assistance: Independent Ambulatory Assistance: Independent Vocational: Retired 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 Prior Function Comments: denies other falls Precautions: Precautions LE Weight Bearing Status: Weight Bearing as Tolerated Medical Precautions: Fall precautions, Oxygen therapy device and L/min (2L via NC) Precautions Comment: SBP <160, sinus precautions Vital Signs Vitals Session Pre PT During PT Post PT BP 116/69 115/62 MAP (mmHg) 94 90 HR 72 70 SpO2 95 95 Objective Pain: Pain Assessment Pain Assessment: 0-10 0-10 (Numeric) Pain Score: 7 Pain Type: Acute pain Pain Location: Hip Pain Orientation: Right Cognition: Cognition Overall Cognitive Status: Within Functional Limits Orientation Level: Oriented X4 General Assessments: General Observation General Observation: external catheter, tele, O2 via NC at 2L Activity Tolerance Endurance: Tolerates 30 min exercise with multiple rests Sensation Light Touch: No apparent deficits Static Sitting Balance Static Sitting-Balance Support: Bilateral upper extremity supported, Feet supported Static Sitting-Level of Assistance: Close supervision Static Sitting-Comment/Number of Minutes: CGA progression to SBA Static Standing Balance Static Standing-Balance Support: Bilateral upper extremity supported Static Standing-Level of Assistance: Minimum assistance Static Standing-Comment/Number of Minutes: inc difficulty completing full trunk extension in standing with inc reliance of posterior legs against bed for support, tolerated ~3 seconds Functional Assessments: Bed Mobility Bed Mobility: Yes Bed Mobility 1 Bed Mobility 1: Supine to sitting Level of Assistance 1: Moderate assistance, Moderate verbal cues Bed Mobility Comments 1: inc time to reach EOB with step by step cues for sequencing, use of draw sheet to complete Bed Mobility 2 Bed Mobility 2: Sitting to supine Level of Assistance 2: Moderate assistance, Moderate verbal cues Transfers Transfer: Yes Transfer 1 Transfer From 1: Sit to, Stand to Transfer to 1: Stand, Sit Technique 1: Sit to stand, Stand to sit Transfer Device 1: Walker Transfer Level of Assistance 1: Moderate assistance, Moderate verbal cues Trials/Comments 1: inc time to reach standing with inc use of posterior legs against bed for support Ambulation/Gait Training Ambulation/Gait Training Performed: No (pt unable to complete weight shifting or pre-gait activity d/t pain and limited standing tolerance) Extremity/Trunk Assessments: RLE RLE : (knee and ankle grossly >3/5, resistance held d/t pain and hip flexion NT d/t pain) LLE LLE : (knee and ankle grossly >3/5, resistance held d/t pain and hip flexion NT d/t pain) Treatments: Therapeutic Activity Therapeutic Activity Performed: Yes Therapeutic Activity 1: sitting EOB x18 minutes with CGA-SBA, inc reliance of [place] UEs for support Therapeutic Activity 2: sit<>stand x1 trial with FWW, second trial with pt pushing through [place] UEs on bed to clear buttocks from bed to assist with removing shorts he no longer wanted on Outcome Measures: [facility] Basic Mobility Turning from your back to your side while in a flat bed without using bedrails: A lot Moving from lying on your back to sitting on the side of a flat bed without using bedrails: A lot Moving to and from bed to chair (including a wheelchair): Total Standing up from a chair using your arms (e.g. wheelchair or bedside chair): A lot To walk in hospital room: Total Climbing 3-5 steps with railing: Total Basic Mobility - Total Score: 9 Encounter Problems Encounter Problems (Active) PT Problem Pt will perform supine<>sit with SBA (Progressing) Start: 05/11/25 Expected End: 05/25/25 Pt will perform sit<>stand with LRAD and SBA (Progressing) Start: 05/11/25 Expected End: 05/25/25 Pt will ambulate >50ft with LRAD and supervision (Progressing) Start: 05/11/25 Expected End: 05/25/25 Pt will ascend/descend single step with LRAD and SBA (Progressing) Start: 05/11/25 Expected End: 05/25/25 Education Documentation Precautions, taught by Serina Swanson PT at 05/11/2025 3:06 PM. Learner: Patient Readiness: Acceptance Method: Explanation Response: Verbalizes Understanding Comment: progression of mobility, fall precautions, sequencing mobility Body Mechanics, taught by Serina Swanson PT at 05/11/2025 3:06 PM. Learner: Patient Readiness: Acceptance Method: Explanation Response: Verbalizes Understanding Comment: progression of mobility, fall precautions, sequencing mobility Mobility Training, taught by Serina Swanson PT at 05/11/2025 3:06 PM. Learner: Patient Readiness: Acceptance Method: Explanation Response: Verbalizes Understanding Comment: progression of mobility, fall precautions, sequencing mobility Education Comments No comments found. [facility] - PROGRESS NOTE Patient Name: Fawn Cameron Admit Date: [id number] : 1935 AGE: 89 y.o. 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 LOC (yes/no?): Yes Anticoagulant / Anti-platelet Rx? 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 (1.2 cm) TODAY'S ASSESSMENT AND PLAN OF CARE: # Right parietal SAH # L frontal lobe extra-axial hemorrhage - repeat CTH 11PM 05/10 stable - Q4h neurochecks - Keppra 500mg BID for total 7 days - Ok to restart ASA 81mg at post bleed day 7 (05/17) # R orbital roof fracture - ENT consulted - non operative - Sinus precautions - Ophthalmology consulted - no evidence of muscle entrapment # Bilateral pubic rami fractures with extension into the acetabular wall # Nondisplaced sacral ala fracture on right - Orthopedic consulted - non operative, trial of ambulation with PT/OT - WBAT BLLE # Comorbidities # Functional decline - Geriatrics consulted - Resume home meds - Regular diet - PT/OT eval - SW consult for placement - DVT ppx: SCDs, subcutaneous lovenox to start 05/13 AM dosing - GI ppx: Home PPI for GERD - Dispo: Admit to floor CHIEF COMPLAINT / OVERNIGHT EVENTS: No new complains MEDICAL HISTORY / ROS: Admission history and ROS reviewed. Pertinent changes as follows: None PHYSICAL EXAM: Heart Rate: [57-92] Temperature: [36.3 C (97.3 F)-36.6 C (97.9 F)] Respirations: [10-18] BP: (79-139)/(47-73) Height: [167.6 cm (5' 6)] Weight: [66.2 kg (146 lb)] Pulse Ox: [92 %-97 %] Physical Exam Vitals and nursing note reviewed. Constitutional: Appearance: Normal appearance. HENT: Head: Normocephalic. Comments: 3 cm lacerations just above the right brow with [address] face and head otherwise atraumatic, midface stable, no malocclusion Eyes: Extraocular Movements: Extraocular movements intact. Pupils: Pupils are equal, round, and reactive to light. Cardiovascular: Rate and Rhythm: Normal rate and regular rhythm. Pulmonary: Effort: No respiratory distress. Abdominal: General: There is no distension. Palpations: Abdomen is soft. Tenderness: There is no abdominal tenderness. Musculoskeletal: Cervical back: Normal range of motion. Comments: Range of motion decreased bilateral hips due to pain, muscle strength 5/5 bilateral upper and lower extremities Skin: General: Skin is warm. Capillary Refill: Capillary refill takes less than 2 seconds. Comments: Skin tears present on the dorsal right hand/knuckles and forearm without any active bleeding, wrapped with gauze; bilateral forearm ecchymoses Neurological: Mental Status: He is alert. Mental status is at baseline. IMAGING SUMMARY: (summary of new imaging findings, not a copy of dictation) None LABS: Results from last 7 days Lab Units 05/11/25 0431 05/10/25 1422 WBC AUTO x10*3/uL 10.7 10.7 HEMOGLOBIN g/dL 11.4* 12.3* HEMATOCRIT % 32.9* 36.3* PLATELETS AUTO x10*3/uL 204 213 NEUTROS PCT AUTO % -- 78.1 LYMPHS PCT AUTO % -- 9.4 MONOS PCT AUTO % -- 9.7 EOS PCT AUTO % -- 1.0 Results from last 7 days Lab Units 05/10/25 1422 APTT seconds 29 INR 1.1 Results from last 7 days Lab Units 05/11/25 0431 05/10/25 1422 SODIUM mmol/L 139 138 POTASSIUM mmol/L 3.6 3.9 CHLORIDE mmol/L 104 106 CO2 mmol/L 30 26 BUN mg/dL 21 26* CREATININE mg/dL 0.89 0.77 CALCIUM mg/dL 8.5* 8.7 GLUCOSE mg/dL 124* 95 I have reviewed all medications, laboratory results, and imaging pertinent for today's encounter. Cosigned by Miguel Ángel Jung MD at 05/19/2025 7:16 PM EDT Associated attestation - Miguel Ángel Jung MD - 05/19/2025 7:16 PM EDT I saw and examined the patient. I discussed the patient's care with the resident/LINDSEY team. I agree with the note with the additions/clarifications below. Late entry for 05/11/25. 89 yo male fall/found down with facial fractures, ICH and pelvic fractures. No significant pain. On exam, chronically ill appearing. Abd is soft, NT, ND. ALLAN. Plan for diet, pain control, PT, geriatrics evaluation, neuromonitoring, repeat CT head, NSYG evaluation, orthopedics evaluation, face evaluation and SCDs. Pharmacy Medication History Review Fawn Campos is a 89 y.o. male admitted for No Principal Problem: There is no principal problem currently on the Problem List. Please update the Problem List and refresh.. Pharmacy reviewed the patient's [id number] medications and allergies for accuracy. The list below reflects the updated [employer]PER[employer] list. Prior to Admission Medications Prescriptions Last Dose Informant Patient Reported? Taking? alfuzosin (Uroxatral) 10 mg 24 hr tablet 05/09/2025 Bedtime Self No Yes Sig: TAKE 1 TABLET BY MOUTH ONCE DAILY DO NOT CRUSH, CHEW, OR SPLIT amLODIPine (Norvasc) 5 mg tablet 05/10/2025 Morning Self No Yes Sig: Take 1 tablet (5 mg) by mouth once daily. amitriptyline (Elavil) 10 mg tablet 05/09/2025 Bedtime Self No Yes Sig: Take 1 tablet (10 mg) by mouth once daily at bedtime. aspirin 81 mg EC tablet 05/10/2025 Morning Self Yes Yes Sig: Take 1 tablet (81 mg) by mouth once daily. benazepril (Lotensin) 40 mg tablet 05/10/2025 Morning Self No Yes Sig: Take 1 tablet (40 mg) by mouth once daily. escitalopram (Lexapro) 5 mg tablet 05/10/2025 Morning Self No Yes Sig: Take 1 tablet (5 mg) by mouth once daily. folic acid (Folvite) 1 mg tablet 05/10/2025 Morning Self No Yes Sig: Take 2 tablets (2 mg) by mouth once daily. methotrexate (Trexall) 2.5 mg tablet 05/10/2025 Morning Self Yes Yes Sig: Take 8 tablets (20 mg total) by mouth 1 (one) time per week. On Sundays metoprolol tartrate (Lopressor) 25 mg tablet 05/10/2025 Morning Self No Yes Sig: Take 1 tablet (25 mg) by mouth 2 times a day. omeprazole (PriLOSEC) [address] capsule 05/09/2025 Bedtime Self No Yes Sig: Take 1 capsule (40 mg) by mouth once daily in the morning. Take before meals. pravastatin (Pravachol) 40 mg tablet 05/09/2025 Bedtime Self No Yes Sig: Take 1 tablet (40 mg) by mouth once daily at bedtime. predniSONE (Deltasone) 10 mg tablet Unknown Self No Yes Sig: Take 1 Tablet Oral one time daily as needed. Take for 3 to 5 days with a flare. vit A/vit C/vit E/zinc/copper (PRESERVISION AREDS ORAL) 05/10/2025 Morning Self Yes Yes Sig: Take 1 tablet by mouth 2 times a day. Facility-Administered Medications: None The list below reflects the updated allergy list. Please review each documented allergy for additional clarification and justification. Allergies Reviewed by Gauri Stiles RN on 05/10/2025 No Known Allergies Patient accepts M2B at discharge. Sources: Patient Interview - good historian Admission MedRec Grid OARRS - none recent [facility] medication dispense report Medications ADDED: None Medications CHANGED: AREDS - updated frequency from Qday to BID Medications REMOVED/MARKED NOT TAKING: None Additional Comments: Patient only took 4 out of 8 methotrexate 2.5 mg tablets on 05/10/25 (takes on Sundays) Kellee Osman PharmD Transitions of Care Pharmacist 05/10/25 Secure Chat preferred If no response call [id number] or [facility] documented in this encounter [facility] Work Phone: 05-20-2025 Nurse Note 1324 Report given to ANNA Perez at [facility]. SBAR given. Orders reviewed. 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 [facility] 05-20-2025 Nurse Note 1324 Report given to ANNA Perez at [facility]. SBAR given. Orders reviewed. 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 Pt handoff report provided to oncoming nurse to continue to monitor. Pt safety measures in place. Pt was eating dinner and told RN he was having trouble swallowing certain foods and coughed and had to spit them out. RN instructed pt and pts family to no longer eat or drink anything and food/drink moved away from patient. Primary team was notified. documented in this encounter [facility] Work Phone: 05-20-2025 Hospital Discharge instructions Hien Ramesh PA-C - 05/20/2025 1:09 PM EDT [facility] DISCHARGE INSTRUCTIONS GENERAL INSTRUCTIONS 1) Diet: Tube feeds 2) Activity: - Move around as you are able - Avoid strenuous activities and intensive movements as you are healing. - Normal activity as tolerated until follow up visits Weight bearing status: WBAT Driving: No driving while taking narcotic medications and until follow up visits. Showering/Bathing: You may shower and bathe once all of your dressings are removed. While a surgical dressing or orthopedic splint is in place, we recommend sponge baths only and to avoid getting the area of injury wet until your follow up appointments. Once the surgical dressing, wound dressing, and/or orthopedic splint is removed, you may shower. Please do not scrub the area of injury, but allow soap and water to run gently over the area. No tub soaks, swimming, or hot tub use until your follow up appointment unless otherwise indicated. Further instructions will be provided to you at your follow up appointments. 3) Medications: - You are to resume all your home medications as previously prescribed unless otherwise indicated or instructed. - You have been given a prescription for Tylenol, Oxycodone, and Griselda-Colace. - If refills are needed for your medications, please don't hesitate to reach out to your primary care provider. 4) Wound care: Keep wounds clean, dry, and covered with a dressing as desired/necessary. No lotions, powders, or creams over wounds. No tub soaks. Apply bacitracin ointment to wounds/abrasions three times per day and as needed for up to 7 days. If splint is in place, do not remove until follow up appointment and/or sutures will be removed in the office during your follow up appointment. Call the office immediately if you notice any sign of infection such as increased redness, warmth, thick drainage, wound separation, or spiking fever/chills. 5) Follow up appointments: - Trauma Surgery: A trauma clinic follow up is not necessary regarding your recent hospital admission. Follow up with the trauma surgery clinic as needed/desired. To follow up, please call the trauma clinic at to schedule your appointment. Do not hesitate to call our outpatient nurse coordinator at [phone] with any questions/concerns. The nurse will get back to you within 48-72 hours. If you feel it is an emergency, please proceed to your nearest Emergency Room. - Orthopedics: If you have not been contacted within 2-3 days of discharge from the hospital, please call to schedule your follow up visit within 2 weeks of discharge with orthopedics regarding your recent hospital admission. - ENT: Patient can follow-up in 2-3 weeks with ENT for re-evaluation - Opthalmology: Recommend follow-up with [facility], within 1-2 weeks. Please call [phone] ([facility]YES) to make appointment. - Primary Care Provider: Please follow up with your PCP within 1-2 weeks after discharge regarding your recent hospital admission. If you do not have a primary care provider, you may also call the hospital main number at [phone] and ask for a referral. 6) Please notify your physician if you have the following symptoms. - Fever > 100.5 F (>38 C), chills - Uncontrolled nausea and/or vomiting - Chest pain - New or worsening shortness of breath - Uncontrolled diarrhea - You stop passing gas - Have new bruising, rashes, blistering on your body - New numbness/tingling, loss of feeling in any part of your body or a new decreased ability to move any part of your body - New or worsening swelling - Uncontrolled pain If you display any of the following signs/symptoms: increased confusion, altered mental status, new numbness or tingling, decreased sensation or movement, pain that is uncontrolled with pain medications, increased shortness of breath, chest pain/palpitations, or any other concerning signs/symptoms, please proceed to your nearest Emergency Department for further evaluation and management. documented in this encounter [facility] Work Phone: 05-20-2025 Plan of care note Problem: Skin Goal: Promote/optimize nutrition 05/20/2025 1101 by Mack Mckinley RN Flowsheets (Taken 05/20/2025 1101) Promote/optimize nutrition: Offer water/supplements/favorite foods Consume > 50% meals/supplements Note: Pt tolerating tube feeds at goal rate 05/20/2025 1100 by Mack Mckinley RN Note: Pt remains on continuous tube feeds and is tolerating intake at goal rate 05/20/2025 1100 by Mack Mckinley RN Outcome: Progressing The patient's goals for the shift include The clinical goals for the shift include Pt will remain free from injury during this shift [facility] Work Phone: 05-20-2025 Miscellaneous Notes Problem: Skin Goal: Promote/optimize nutrition 05/20/2025 1101 by Mack Mckinley RN Flowsheets (Taken 05/20/2025 1101) Promote/optimize nutrition: Offer water/supplements/favorite foods Consume > 50% meals/supplements Note: Pt tolerating tube feeds at goal rate 05/20/2025 1100 by Mack Mckinley RN Note: Pt remains on continuous tube feeds and is tolerating intake at goal rate 05/20/2025 1100 by Mack Mckinley RN Outcome: Progressing The patient's goals for the shift include The clinical goals for the shift include Pt will remain free from injury during this shift Problem: Skin Goal: Decreased wound size/increased tissue granulation at next dressing change Outcome: Progressing Goal: Participates in plan/prevention/treatment measures Outcome: Progressing Goal: Prevent/manage excess moisture Outcome: Progressing Goal: Prevent/minimize sheer/friction injuries Outcome: Progressing Goal: Promote/optimize nutrition Outcome: Progressing Goal: Promote skin healing Outcome: Progressing Problem: Pain - Adult Goal: Verbalizes/displays adequate comfort level or baseline comfort level Outcome: Progressing Problem: Chronic Conditions and Co-morbidities Goal: Patient's chronic conditions and co-morbidity symptoms are monitored and maintained or improved Outcome: Progressing Problem: Nutrition Goal: Nutrient intake appropriate for maintaining nutritional needs Outcome: Progressing Problem: Pain Goal: Walks with improved pain control throughout the shift Outcome: Progressing Goal: Performs ADL's with improved pain control throughout shift Outcome: Progressing Goal: Participates in PT with improved pain control throughout the shift Outcome: Progressing Goal: Free from opioid side effects throughout the shift Outcome: Progressing Goal: Free from acute confusion related to pain meds throughout the shift Outcome: Progressing Problem: Fall/Injury Goal: Not fall by end of shift Outcome: Progressing Goal: Be free from injury by end of the shift Outcome: Progressing Goal: Verbalize understanding of personal risk factors for fall in the hospital Outcome: Progressing Goal: Verbalize understanding of risk factor reduction measures to prevent injury from fall in the home Outcome: Progressing Goal: Use assistive devices by end of the shift Outcome: Progressing Goal: Pace activities to prevent fatigue by end of the shift Outcome: Progressing The patient's goals for the shift include The clinical goals for the shift include Pt will remain free from injury during this shift The patient's goals for the shift include The clinical goals for the shift include PT will remain safe and free from fall or injury this shift Problem: Skin Goal: Decreased wound size/increased tissue granulation at next dressing change Outcome: Progressing Problem: Pain Goal: Walks with improved pain control throughout the shift Outcome: Progressing Problem: Fall/Injury Goal: Not fall by end of shift Outcome: Progressing The clinical goals for the shift include patient will remain safe and free from falls through end of shift Problem: Skin Goal: Decreased wound size/increased tissue granulation at next dressing change Outcome: Progressing Goal: Participates in plan/prevention/treatment measures Outcome: Progressing Goal: Prevent/manage excess moisture Outcome: Progressing Goal: Prevent/minimize sheer/friction injuries Outcome: Progressing Goal: Promote/optimize nutrition Outcome: Progressing Goal: Promote skin healing Outcome: Progressing Problem: Pain - Adult Goal: Verbalizes/displays adequate comfort level or baseline comfort level Outcome: Progressing Problem: Chronic Conditions and Co-morbidities Goal: Patient's chronic conditions and co-morbidity symptoms are monitored and maintained or improved Outcome: Progressing Problem: Nutrition Goal: Nutrient intake appropriate for maintaining nutritional needs Outcome: Progressing Problem: Pain Goal: Walks with improved pain control throughout the shift Outcome: Progressing Goal: Performs ADL's with improved pain control throughout shift Outcome: Progressing Goal: Participates in PT with improved pain control throughout the shift Outcome: Progressing Goal: Free from opioid side effects throughout the shift Outcome: Progressing Goal: Free from acute confusion related to pain meds throughout the shift Outcome: Progressing Problem: Fall/Injury Goal: Not fall by end of shift Outcome: Progressing Goal: Be free from injury by end of the shift Outcome: Progressing Goal: Verbalize understanding of personal risk factors for fall in the hospital Outcome: Progressing Goal: Verbalize understanding of risk factor reduction measures to prevent injury from fall in the home Outcome: Progressing Goal: Use assistive devices by end of the shift Outcome: Progressing Goal: Pace activities to prevent fatigue by end of the shift Outcome: Progressing The clinical goals for the shift include patient will remain safe and free from falls through end of shift Problem: Skin Goal: Decreased wound size/increased tissue granulation at next dressing change Outcome: Progressing Goal: Participates in plan/prevention/treatment measures Outcome: Progressing Goal: Prevent/manage excess moisture Outcome: Progressing Goal: Prevent/minimize sheer/friction injuries Outcome: Progressing Goal: Promote/optimize nutrition Outcome: Progressing Goal: Promote skin healing Outcome: Progressing Problem: Pain - Adult Goal: Verbalizes/displays adequate comfort level or baseline comfort level Outcome: Progressing Problem: Chronic Conditions and Co-morbidities Goal: Patient's chronic conditions and co-morbidity symptoms are monitored and maintained or improved Outcome: Progressing Problem: Nutrition Goal: Nutrient intake appropriate for maintaining nutritional needs Outcome: Progressing Problem: Pain Goal: Walks with improved pain control throughout the shift Outcome: Progressing Goal: Performs ADL's with improved pain control throughout shift Outcome: Progressing Goal: Participates in PT with improved pain control throughout the shift Outcome: Progressing Goal: Free from opioid side effects throughout the shift Outcome: Progressing Goal: Free from acute confusion related to pain meds throughout the shift Outcome: Progressing The patient's goals for the shift include The clinical goals for the shift include remain free from falls Problem: Pain Goal: Takes deep breaths with improved pain control throughout the shift Outcome: Met Goal: Turns in bed with improved pain control throughout the shift Outcome: Met The clinical goals for the shift include patient will remain safe and free from falls through end of shift Problem: Skin Goal: Decreased wound size/increased tissue granulation at next dressing change Outcome: Progressing Goal: Participates in plan/prevention/treatment measures Outcome: Progressing Goal: Prevent/manage excess moisture Outcome: Progressing Goal: Prevent/minimize sheer/friction injuries Outcome: Progressing Goal: Promote/optimize nutrition Outcome: Progressing Goal: Promote skin healing Outcome: Progressing Problem: Pain - Adult Goal: Verbalizes/displays adequate comfort level or baseline comfort level Outcome: Progressing Problem: Chronic Conditions and Co-morbidities Goal: Patient's chronic conditions and co-morbidity symptoms are monitored and maintained or improved Outcome: Progressing Problem: Nutrition Goal: Nutrient intake appropriate for maintaining nutritional needs Outcome: Progressing Problem: Pain Goal: Takes deep breaths with improved pain control throughout the shift Outcome: Progressing Goal: Turns in bed with improved pain control throughout the shift Outcome: Progressing Goal: Walks with improved pain control throughout the shift Outcome: Progressing Goal: Performs ADL's with improved pain control throughout shift Outcome: Progressing Goal: Participates in PT with improved pain control throughout the shift Outcome: Progressing Goal: Free from opioid side effects throughout the shift Outcome: Progressing Goal: Free from acute confusion related to pain meds throughout the shift Outcome: Progressing The patient's goals for the shift include The clinical goals for the shift include increase feed rate and remain HDS Problem: Safety - Adult Goal: Free from fall injury Outcome: Met Problem: Discharge Planning Goal: Discharge to home or other facility with appropriate resources Outcome: Met The patient's goals for the shift include safety The clinical goals for the shift include Pt will remian safe and HDS Over the shift, the patient did make progress toward the following goals. Pt sat in the chair for a couple hours today. Dobhoff inserted and awaiting to start feeds once pump available, refrigeration lead to see pt tomorrow morning and follow up. Still on 1L, desats to 88 on RA. Pt voiding, had a BM, passing gas. Ongoing care, call light within reach, bed alarm in place Problem: Skin Goal: Decreased wound size/increased tissue granulation at next dressing change Outcome: Progressing Goal: Participates in plan/prevention/treatment measures Outcome: Progressing Goal: Prevent/manage excess moisture Outcome: Progressing Goal: Prevent/minimize sheer/friction injuries Outcome: Progressing Goal: Promote/optimize nutrition Outcome: Progressing Goal: Promote skin healing Outcome: Progressing Problem: Pain - Adult Goal: Verbalizes/displays adequate comfort level or baseline comfort level Outcome: Progressing Problem: Safety - Adult Goal: Free from fall injury Outcome: Progressing Problem: Discharge Planning Goal: Discharge to home or other facility with appropriate resources Outcome: Progressing Problem: Chronic Conditions and Co-morbidities Goal: Patient's chronic conditions and co-morbidity symptoms are monitored and maintained or improved Outcome: Progressing Problem: Nutrition Goal: Nutrient intake appropriate for maintaining nutritional needs Outcome: Progressing The patient's goals for the shift include The clinical goals for the shift include 0900 The patient's goals for the shift include safety The clinical goals for the shift include pain management Over the shift, the patient did not make progress toward the following goals. Problem: Nutrition Goal: Nutrient intake appropriate for maintaining nutritional needs Outcome: Not Progressing Pt failed MBS, having difficulty making decision on what to do. Spoke with pt on what having an NGT would consist of. Pt also requested provider call and discuss options, RN message trauma provider. Q2 turns, having BM, primofit in place. On IVF. Pt tolerated therapy better today than yesterday per pt and PT. Bed alarm in place, call light within reach, ongoing care The clinical goals for the shift include pts pain ivis remian controlled through shift Problem: Pain - Adult Goal: Verbalizes/displays adequate comfort level or baseline comfort level Outcome: Progressing Problem: Safety - Adult Goal: Free from fall injury Outcome: Progressing Problem: Skin Goal: Decreased wound size/increased tissue granulation at next dressing change Outcome: Progressing Goal: Participates in plan/prevention/treatment measures Outcome: Progressing Goal: Prevent/manage excess moisture Outcome: Progressing Flowsheets (Taken 05/13/2025 [id number]) Prevent/manage excess moisture: Moisturize dry skin Goal: Prevent/minimize sheer/friction injuries Outcome: Progressing Goal: Promote/optimize nutrition Outcome: Progressing Goal: Promote skin healing Outcome: Progressing Problem: Pain - Adult Goal: Verbalizes/displays adequate comfort level or baseline comfort level Outcome: Progressing Problem: Safety - Adult Goal: Free from fall injury Outcome: Progressing Problem: Discharge Planning Goal: Discharge to home or other facility with appropriate resources Outcome: Progressing Problem: Chronic Conditions and Co-morbidities Goal: Patient's chronic conditions and co-morbidity symptoms are monitored and maintained or improved Outcome: Progressing Problem: Nutrition Goal: Nutrient intake appropriate for maintaining nutritional needs Outcome: Progressing The patient's goals for the shift include The clinical goals for the shift include pts pain ivis remian controlled through shift The clinical goals for the shift include Patient pain will be managed Problem: Pain - Adult Goal: Verbalizes/displays adequate comfort level or baseline comfort level Outcome: Progressing Problem: Safety - Adult Goal: Free from fall injury Outcome: Progressing 89-year-old male status post 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 Patient was found to have right orbital floor and roof fracture, small right subdural hematoma and trace frontal/parietal subarachnoid hematoma, bilateral pubic rami fractures and a sacral ala fracture that is nondisplaced on the right. All fractures have been managed nonoperatively. The patient was given an ambulation trial for his pubic rami fractures. Repeat CT head demonstrated stable presentation of the brain bleeds. Patient is to continue Keppra 500 mg twice daily for 7 days total. He is okay to restart his ASA 81 mg on 05/17. Regarding his orbital floor and rib fractures, ENT was consulted which recommended nonoperative management, however the patient will continue sinus precautions. He will have follow-up visits with ENT and ophthalmology upon discharge. The patient was evaluated by geriatrics pending recommendations. The patient also has been evaluated by PT/OT and has been recommended SNF placement. Neurosurgery Sign-off and Final Recommendations All imaging and clinical information reviewed as neurosurgical team and significant for: - 05/10 CTH/face R nondisplaced orbital fx, trace R frontal SDH - 05/10 rCTH stable At this time, no further inpatient neurosurgical care is needed. Final recommendations as follows: Okay to restart aspirin on post bleed day 7 (05/17) Keppra 500 BID for 1 week after discharge 2. No neurosurgical follow-up visit needed Please do not hesitate to reach out with further questions or concerns about this patient's neurosurgical care. Iraj Avery MD PGY-1, Department of Neurosurgery [facility] 8:58 AM documented in this encounter [facility] Work Phone: 05-20-2025 Plan of care note Problem: Skin Goal: Decreased wound size/increased tissue granulation at next dressing change Outcome: Progressing Goal: Participates in plan/prevention/treatment measures Outcome: Progressing Goal: Prevent/manage excess moisture Outcome: Progressing Goal: Prevent/minimize sheer/friction injuries Outcome: Progressing Goal: Promote/optimize nutrition Outcome: Progressing Goal: Promote skin healing Outcome: Progressing Problem: Pain - Adult Goal: Verbalizes/displays adequate comfort level or baseline comfort level Outcome: Progressing Problem: Chronic Conditions and Co-morbidities Goal: Patient's chronic conditions and co-morbidity symptoms are monitored and maintained or improved Outcome: Progressing Problem: Nutrition Goal: Nutrient intake appropriate for maintaining nutritional needs Outcome: Progressing Problem: Pain Goal: Walks with improved pain control throughout the shift Outcome: Progressing Goal: Performs ADL's with improved pain control throughout shift Outcome: Progressing Goal: Participates in PT with improved pain control throughout the shift Outcome: Progressing Goal: Free from opioid side effects throughout the shift Outcome: Progressing Goal: Free from acute confusion related to pain meds throughout the shift Outcome: Progressing Problem: Fall/Injury Goal: Not fall by end of shift Outcome: Progressing Goal: Be free from injury by end of the shift Outcome: Progressing Goal: Verbalize understanding of personal risk factors for fall in the hospital Outcome: Progressing Goal: Verbalize understanding of risk factor reduction measures to prevent injury from fall in the home Outcome: Progressing Goal: Use assistive devices by end of the shift Outcome: Progressing Goal: Pace activities to prevent fatigue by end of the shift Outcome: Progressing The patient's goals for the shift include The clinical goals for the shift include Pt will remain free from injury during this shift [facility] Work Phone: 05-20-2025 Nurse Note Pt handoff report provided to oncoming nurse to continue to monitor. Pt safety measures in place. [facility] 05-20-2025 Plan of care note The patient's goals for the shift include The clinical goals for the shift include PT will remain safe and free from fall or injury this shift Problem: Skin Goal: Decreased wound size/increased tissue granulation at next dressing change Outcome: Progressing Problem: Pain Goal: Walks with improved pain control throughout the shift Outcome: Progressing Problem: Fall/Injury Goal: Not fall by end of shift Outcome: Progressing [facility] Work Phone: 05-19-2025 Plan of care note The clinical goals for the shift include patient will remain safe and free from falls through end of shift Problem: Skin Goal: Decreased wound size/increased tissue granulation at next dressing change Outcome: Progressing Goal: Participates in plan/prevention/treatment measures Outcome: Progressing Goal: Prevent/manage excess moisture Outcome: Progressing Goal: Prevent/minimize sheer/friction injuries Outcome: Progressing Goal: Promote/optimize nutrition Outcome: Progressing Goal: Promote skin healing Outcome: Progressing Problem: Pain - Adult Goal: Verbalizes/displays adequate comfort level or baseline comfort level Outcome: Progressing Problem: Chronic Conditions and Co-morbidities Goal: Patient's chronic conditions and co-morbidity symptoms are monitored and maintained or improved Outcome: Progressing Problem: Nutrition Goal: Nutrient intake appropriate for maintaining nutritional needs Outcome: Progressing Problem: Pain Goal: Walks with improved pain control throughout the shift Outcome: Progressing Goal: Performs ADL's with improved pain control throughout shift Outcome: Progressing Goal: Participates in PT with improved pain control throughout the shift Outcome: Progressing Goal: Free from opioid side effects throughout the shift Outcome: Progressing Goal: Free from acute confusion related to pain meds throughout the shift Outcome: Progressing Problem: Fall/Injury Goal: Not fall by end of shift Outcome: Progressing Goal: Be free from injury by end of the shift Outcome: Progressing Goal: Verbalize understanding of personal risk factors for fall in the hospital Outcome: Progressing Goal: Verbalize understanding of risk factor reduction measures to prevent injury from fall in the home Outcome: Progressing Goal: Use assistive devices by end of the shift Outcome: Progressing Goal: Pace activities to prevent fatigue by end of the shift Outcome: Progressing [facility] 05-18-2025 Plan of care note The clinical goals for the shift include patient will remain safe and free from falls through end of shift Problem: Skin Goal: Decreased wound size/increased tissue granulation at next dressing change Outcome: Progressing Goal: Participates in plan/prevention/treatment measures Outcome: Progressing Goal: Prevent/manage excess moisture Outcome: Progressing Goal: Prevent/minimize sheer/friction injuries Outcome: Progressing Goal: Promote/optimize nutrition Outcome: Progressing Goal: Promote skin healing Outcome: Progressing Problem: Pain - Adult Goal: Verbalizes/displays adequate comfort level or baseline comfort level Outcome: Progressing Problem: Chronic Conditions and Co-morbidities Goal: Patient's chronic conditions and co-morbidity symptoms are monitored and maintained or improved Outcome: Progressing Problem: Nutrition Goal: Nutrient intake appropriate for maintaining nutritional needs Outcome: Progressing Problem: Pain Goal: Walks with improved pain control throughout the shift Outcome: Progressing Goal: Performs ADL's with improved pain control throughout shift Outcome: Progressing Goal: Participates in PT with improved pain control throughout the shift Outcome: Progressing Goal: Free from opioid side effects throughout the shift Outcome: Progressing Goal: Free from acute confusion related to pain meds throughout the shift Outcome: Progressing [facility] Work Phone: 05-17-2025 Plan of care note The patient's goals for the shift include The clinical goals for the shift include remain free from falls Problem: Pain Goal: Takes deep breaths with improved pain control throughout the shift Outcome: Met Goal: Turns in bed with improved pain control throughout the shift Outcome: Met [facility] 05-17-2025 Plan of care note The clinical goals for the shift include patient will remain safe and free from falls through end of shift Problem: Skin Goal: Decreased wound size/increased tissue granulation at next dressing change Outcome: Progressing Goal: Participates in plan/prevention/treatment measures Outcome: Progressing Goal: Prevent/manage excess moisture Outcome: Progressing Goal: Prevent/minimize sheer/friction injuries Outcome: Progressing Goal: Promote/optimize nutrition Outcome: Progressing Goal: Promote skin healing Outcome: Progressing Problem: Pain - Adult Goal: Verbalizes/displays adequate comfort level or baseline comfort level Outcome: Progressing Problem: Chronic Conditions and Co-morbidities Goal: Patient's chronic conditions and co-morbidity symptoms are monitored and maintained or improved Outcome: Progressing Problem: Nutrition Goal: Nutrient intake appropriate for maintaining nutritional needs Outcome: Progressing Problem: Pain Goal: Takes deep breaths with improved pain control throughout the shift Outcome: Progressing Goal: Turns in bed with improved pain control throughout the shift Outcome: Progressing Goal: Walks with improved pain control throughout the shift Outcome: Progressing Goal: Performs ADL's with improved pain control throughout shift Outcome: Progressing Goal: Participates in PT with improved pain control throughout the shift Outcome: Progressing Goal: Free from opioid side effects throughout the shift Outcome: Progressing Goal: Free from acute confusion related to pain meds throughout the shift Outcome: Progressing [facility] Work Phone: 05-16-2025 Plan of care note The patient's goals for the shift include The clinical goals for the shift include increase feed rate and remain HDS Problem: Safety - Adult Goal: Free from fall injury Outcome: Met Problem: Discharge Planning Goal: Discharge to home or other facility with appropriate resources Outcome: Met [facility] Work Phone: 05-16-2025 Note 1. Please refer to d etailed swallow study evaluation by speech pathologist. 2. No radiographic evidence of acute osseous abnormality within limits of current examination. I personally reviewed the images/study and I agree with the findings as stated by Prakash Jorge MD (plant operations vice president). This study was interpreted at [facility], [place], [place]. MACRO: None Signed by: Antonio Lane 05/16/2025 4:02 PM Dictation workstation: [id number] 05-16-2025 Consult note Associated Order (s): IP CONSULT TO NUTRITION SERVICES Nutrition Initial Assessment: Nutrition Assessment Reason for Assessment: Provider consult order, Enteral assessment/recommendation (TF) (Nutrition assessment/recommendation) Patient is a 89 y.o. male presenting with Fall. Medical History[1] Surgical History[2] Nutrition History: Food and Nutrient History: NPO or decreased intake initial 4 days of hospital stay. ELECTRICAL AND INSTRUMENTATION MECHANIC recommended NPO on 05/14/25. DHT placed 05/15 and Isosource 1.5 initiated @ 10ml/hr with plan to increase by 10ml every 6hrs to goal of 50ml/hr. Noted per abd x-ray tube ends in proximal duodenum. Patient was lying in bed upon visit this morning. TF running @ 30ml/hr and patient tolerating well. 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 He described his usual weight as 150-151# (68.4kg) and noted a 4# weight loss at a prior doctor visit. He began drinking 1 Boost shake 5 days a week encouraged by his and he liked the shakes. He noticed coughing after drinking fluids for some months, he discussed with his doctor but hadn't followed up with his provider recently. He also noted chewing foods more often and occasionally having to spit them out. He was unsure if chewing difficulty was related to his dentition or something else. Vitamin/Herbal Supplement Use: Folic acid, Preservision AREDS (more recently initiated per his provider d/t macular degeneration) Anthropometrics: Height: 167.6 cm (5' 6) Weight: 66.2 kg (146 lb) BMI (Calculated): 23.58 IBW/kg (Dietitian Calculated): 64.5 kg Percent of IBW: 103 % Weight History: Wt Readings from Last 14 Encounters: 05/10/25 66.2 kg (146 lb) 05/10/25 66.2 kg (146 lb) 05/07/25 66.3 kg (146 lb 3.2 oz) 04/10/25 68.5 kg (151 lb) 11/20/24 69.3 kg (152 lb 12.8 oz) 09/01/24 68.3 kg (150 lb 9.6 oz) 07/03/24 67.9 kg (149 lb 11.2 oz) 05/19/24 68.4 kg (150 lb 14.4 oz) 12/17/23 69.9 kg (154 lb) 12/07/23 81.6 kg (180 lb) 11/15/23 70.8 kg (156 lb) 11/15/23 70.9 kg (156 lb 6.4 oz) 11/11/23 72.6 kg (160 lb) 11/05/23 70.9 kg (156 lb 6.4 oz) Weight Change %: Weight History / % Weight Change: 05/10/25) 66.2kg, 04/10/25) 68.5kg, 11/20/24) 69.3kg, 05/19/24) 68.4kg. ~3% weight loss over 1 month Significant Weight Loss: No Nutrition Focused Physical Exam Findings: Subcutaneous Fat Loss: Orbital Fat Pads: Well nourished (slightly bulging fat pads) Buccal Fat Pads: Well nourished (full, rounded cheeks) Triceps: Mild-Moderate (less than ample fat tissue) Ribs: Defer Muscle Wasting: Temporalis: Mild-Moderate (slight depression) (moderate) Pectoralis (Clavicular Region): Mild-Moderate (some protrusion of clavicle) Deltoid/Trapezius: Mild-Moderate (slight protrusion of acromion process) Interosseous: Mild-Moderate (slightly depressed area between thumb and forefinger) Trapezius/Infraspinatus/Supraspi natus (Scapular Region): Defer Quadriceps: Mild-Moderate (mild depression on inner and outer thigh) Gastrocnemius: Defer (scd's) Edema: Physical Findings: Hair: Negative Eyes: Negative Nails: Negative Skin: Positive (Pressure injury buttock, skin tear R arm, face abrasion) Mouth Findings: Chewing difficulty, Dysphagia Teeth Findings: Impaired dentition Nutrition Significant Labs: CBC Trend: Results from last 7 days Lab Units 05/14/25 0645 05/13/25 0705 05/11/25 0431 05/10/25 1422 WBC AUTO x10*3/uL 10.0 12.4* 10.7 10.7 RBC AUTO x10*6/uL 3.36* 3.26* 3.40* 3.66* HEMOGLOBIN g/dL 11.3* 10.8* 11.4* 12.3* HEMATOCRIT % 35.5* 35.0* 32.9* 36.3* MCV fL 106* 107* 97 99 PLATELETS AUTO x10*3/uL 175 151 204 213 , Renal Lab Trend: Results from last 7 days Lab Units 05/13/25 0705 05/12/25 1139 05/11/25 0431 05/11/25 0431 05/10/25 1422 05/10/25 1422 POTASSIUM mmol/L 4.2 3.5 -- 3.6 -- 3.9 PHOSPHORUS mg/dL 3.0 3.0 < > -- -- -- SODIUM mmol/L 140 139 -- 139 -- 138 MAGNESIUM mg/dL 2.35 1.75 -- 1.86 < > -- EGFR mL/min/1.73m*2 >90 90 -- 82 -- 86 BUN mg/dL 22 18 -- 21 -- 26* CREATININE mg/dL 0.62 0.66 -- 0.89 -- 0.77 < > = values in this interval not displayed. , Vit D: Lab Results Component Value Date VITD25 18 (L) 05/12/2025 , Vit B12: Lab Results Component Value Date [id number] 283 05/12/2025 , Iron Panel: Lab Results Component Value Date FERRITIN 158 11/20/2024 , Folate: Lab Results Component Value Date FOLATE >24.0 11/20/2024 Nutrition Specific Medications: Scheduled medications Scheduled Medications[3] Continuous medications Continuous Medications[4] PRN medications PRN Medications[5] I/O: Last BM Date: 05/15/25; Stool Appearance: Loose (05/15/252014) Dietary Orders (From admission, onward) Start Ordered 05/15/25 1726 Enteral feeding with NPO Isosource 1.5; 10; 15; Every 6 hours Diet effective now Comments: Start at 10 ml and advance by 10 q6H until goal rate of 50cc is reached. Question Answer Comment Tube feeding formula: Isosource 1.5 Tube feeding continuous rate (mL/hr): 10 Tube feeding flush (mL): 15 Flush frequency: Every 6 hours 05/15/251724 Estimated Needs: Total Energy Estimated Needs in 24 hours (kCal): 1800 kCal Method for Estimating Needs: ~28kcal/kg Total Protein Estimated Needs in 24 Hours (g): 80 g Method for Estimating 24 Hour Protein Needs: 1.2g/kg Total Fluid Estimated Needs in 24 Hours (mL): 1800 mL Method for Estimating 24 Hour Fluid Needs: ~1ml/kcal Nutrition Diagnosis Nutrition Diagnosis Patient has Nutrition Diagnosis: Yes Diagnosis Status (1): New Nutrition Diagnosis 1: Swallowing difficulty Related to (1): pre and present conditions/injuries As Evidenced by (1): patient report of swallowing diffiuclty obtained upon diet history and 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 2) Tube feed at goal provides ~900ml H20/d. Flush with 220ml H20 QID or adjust flushes per provider discretion. 3) Once patient tolerates tube feed at continuous goal for at least 24hrs can consider transition to cycled feeds @ 75ml/hr x 16hrs to allow 8hrs off during the day. Nutrition Interventions/Goals: Enteral Intake: Management of delivery rate of enteral nutrition Goal: Isosource 1.5 @ 50ml/hr = 1800kcal, 82g protein and 917ml H20/d. Education Documentation Nutrition Related Education, taught by Sherry Coronel RDN, LORE at 05/16/2025 10:42 AM. Learner: Patient Readiness: Acceptance Method: Explanation Response: Verbalizes Understanding Comment: Brief overview of tube feed process and what to expect. Nutrition Monitoring and Evaluation Enteral and Parenteral Nutrition Intake Determination: Enteral nutrition intake - Tolerate TF at goal rate Goal Status: New goal(s) identified Time Spent (min): 75 minutes [1] Past Medical History: Diagnosis Date Arthritis 10 years Callus of foot 05/03/2023 Cataract 20 years GERD (gastroesophageal reflux disease) 6 years HL (hearing loss) 5 years ago Hypertension 20 years ago Personal history of other diseases of the nervous system and sense organs History of cataract Unspecified visual disturbance Visual aura [2] Past Surgical History: Procedure Laterality Date CARDIAC CATHETERIZATION 2010 CATARACT EXTRACTION 04/12/2017 Cataract Surgery CIRCUMCISION, PRIMARY 88 years ago COLONOSCOPY 04/12/2017 Colonoscopy (Fiberoptic) HERNIA REPAIR 04/12/2017 Inguinal Hernia Repair JOINT REPLACEMENT 2016 OTHER SURGICAL HISTORY 04/12/2017 History Of Prior Surgery OTHER SURGICAL HISTORY 04/26/2022 Skin biopsy OTHER SURGICAL HISTORY 08/30/2021 Shoulder surgery OTHER SURGICAL HISTORY 08/30/2021 Hip replacement TONSILLECTOMY 04/12/2017 Tonsillectomy With Adenoidectomy VASECTOMY 40 years ago WISDOM TOOTH EXTRACTION [3] acetaminophen, 650 mg, nasoduodenal tube, q6h KIKA cholecalciferol, 125 mcg, nasoduodenal tube, Daily cyanocobalamin, 1,000 mcg, nasoduodenal tube, Daily enoxaparin, 30 mg, subcutaneous, q12h KIKA levETIRAcetam, 500 mg, nasoduodenal tube, BID metoprolol tartrate, 12.5 mg, nasoduodenal tube, BID pantoprazole, 40 mg, oral, Daily before breakfast polyethylene glycol, 17 g, nasoduodenal tube, Daily pravastatin, 40 mg, nasogastric tube, Nightly [4] [5] PRN medications: bisacodyl, lidocaine, ondansetron OR ondansetron, oxyCODONE, oxyCODONE, sennosides [facility] 05-16-2025 Consult note Associated Order (s): IP CONSULT TO NUTRITION SERVICES Nutrition Initial Assessment: Nutrition Assessment Reason for Assessment: Provider consult order, Enteral assessment/recommendation (TF) (Nutrition assessment/recommendation) Patient is a 89 y.o. male presenting with Fall. Medical History[1] Surgical History[2] Nutrition History: Food and Nutrient History: NPO or decreased intake initial 4 days of hospital stay. ELECTRICAL AND INSTRUMENTATION MECHANIC recommended NPO on 05/14/25. DHT placed 05/15 and Isosource 1.5 initiated @ 10ml/hr with plan to increase by 10ml every 6hrs to goal of 50ml/hr. Noted per abd x-ray tube ends in proximal duodenum. Patient was lying in bed upon visit this morning. TF running @ 30ml/hr and patient tolerating well. 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 He described his usual weight as 150-151# (68.4kg) and noted a 4# weight loss at a prior doctor visit. He began drinking 1 Boost shake 5 days a week encouraged by his and he liked the shakes. He noticed coughing after drinking fluids for some months, he discussed with his doctor but hadn't followed up with his provider recently. He also noted chewing foods more often and occasionally having to spit them out. He was unsure if chewing difficulty was related to his dentition or something else. Vitamin/Herbal Supplement Use: Folic acid, Preservision AREDS (more recently initiated per his provider d/t macular degeneration) Anthropometrics: Height: 167.6 cm (5' 6) Weight: 66.2 kg (146 lb) BMI (Calculated): 23.58 IBW/kg (Dietitian Calculated): 64.5 kg Percent of IBW: 103 % Weight History: Wt Readings from Last 14 Encounters: 05/10/25 66.2 kg (146 lb) 05/10/25 66.2 kg (146 lb) 05/07/25 66.3 kg (146 lb 3.2 oz) 04/10/25 68.5 kg (151 lb) 11/20/24 69.3 kg (152 lb 12.8 oz) 09/01/24 68.3 kg (150 lb 9.6 oz) 07/03/24 67.9 kg (149 lb 11.2 oz) 05/19/24 68.4 kg (150 lb 14.4 oz) 12/17/23 69.9 kg (154 lb) 12/07/23 81.6 kg (180 lb) 11/15/23 70.8 kg (156 lb) 11/15/23 70.9 kg (156 lb 6.4 oz) 11/11/23 72.6 kg (160 lb) 11/05/23 70.9 kg (156 lb 6.4 oz) Weight Change %: Weight History / % Weight Change: 05/10/25) 66.2kg, 04/10/25) 68.5kg, 11/20/24) 69.3kg, 05/19/24) 68.4kg. ~3% weight loss over 1 month Significant Weight Loss: No Nutrition Focused Physical Exam Findings: Subcutaneous Fat Loss: Orbital Fat Pads: Well nourished (slightly bulging fat pads) Buccal Fat Pads: Well nourished (full, rounded cheeks) Triceps: Mild-Moderate (less than ample fat tissue) Ribs: Defer Muscle Wasting: Temporalis: Mild-Moderate (slight depression) (moderate) Pectoralis (Clavicular Region): Mild-Moderate (some protrusion of clavicle) Deltoid/Trapezius: Mild-Moderate (slight protrusion of acromion process) Interosseous: Mild-Moderate (slightly depressed area between thumb and forefinger) Trapezius/Infraspinatus/Supraspi natus (Scapular Region): Defer Quadriceps: Mild-Moderate (mild depression on inner and outer thigh) Gastrocnemius: Defer (scd's) Edema: Physical Findings: Hair: Negative Eyes: Negative Nails: Negative Skin: Positive (Pressure injury buttock, skin tear R arm, face abrasion) Mouth Findings: Chewing difficulty, Dysphagia Teeth Findings: Impaired dentition Nutrition Significant Labs: CBC Trend: Results from last 7 days Lab Units 05/14/25 0645 05/13/25 0705 05/11/25 0431 05/10/25 1422 WBC AUTO x10*3/uL 10.0 12.4* 10.7 10.7 RBC AUTO x10*6/uL 3.36* 3.26* 3.40* 3.66* HEMOGLOBIN g/dL 11.3* 10.8* 11.4* 12.3* HEMATOCRIT % 35.5* 35.0* 32.9* 36.3* MCV fL 106* 107* 97 99 PLATELETS AUTO x10*3/uL 175 151 204 213 , Renal Lab Trend: Results from last 7 days Lab Units 05/13/25 0705 05/12/25 1139 05/11/25 0431 05/11/25 0431 05/10/25 1422 05/10/25 1422 POTASSIUM mmol/L 4.2 3.5 -- 3.6 -- 3.9 PHOSPHORUS mg/dL 3.0 3.0 < > -- -- -- SODIUM mmol/L 140 139 -- 139 -- 138 MAGNESIUM mg/dL 2.35 1.75 -- 1.86 < > -- EGFR mL/min/1.73m*2 >90 90 -- 82 -- 86 BUN mg/dL 22 18 -- 21 -- 26* CREATININE mg/dL 0.62 0.66 -- 0.89 -- 0.77 < > = values in this interval not displayed. , Vit D: Lab Results Component Value Date VITD25 18 (L) 05/12/2025 , Vit B12: Lab Results Component Value Date [id number] 283 05/12/2025 , Iron Panel: Lab Results Component Value Date FERRITIN 158 11/20/2024 , Folate: Lab Results Component Value Date FOLATE >24.0 11/20/2024 Nutrition Specific Medications: Scheduled medications Scheduled Medications[3] Continuous medications Continuous Medications[4] PRN medications PRN Medications[5] I/O: Last BM Date: 05/15/25; Stool Appearance: Loose (05/15/252014) Dietary Orders (From admission, onward) Start Ordered 05/15/25 1726 Enteral feeding with NPO Isosource 1.5; 10; 15; Every 6 hours Diet effective now Comments: Start at 10 ml and advance by 10 q6H until goal rate of 50cc is reached. Question Answer Comment Tube feeding formula: Isosource 1.5 Tube feeding continuous rate (mL/hr): 10 Tube feeding flush (mL): 15 Flush frequency: Every 6 hours 05/15/25 1725 Estimated Needs: Total Energy Estimated Needs in 24 hours (kCal): 1800 kCal Method for Estimating Needs: ~28kcal/kg Total Protein Estimated Needs in 24 Hours (g): 80 g Method for Estimating 24 Hour Protein Needs: 1.2g/kg Total Fluid Estimated Needs in 24 Hours (mL): 1800 mL Method for Estimating 24 Hour Fluid Needs: ~1ml/kcal Nutrition Diagnosis Nutrition Diagnosis Patient has Nutrition Diagnosis: Yes Diagnosis Status (1): New Nutrition Diagnosis 1: Swallowing difficulty Related to (1): pre and present conditions/injuries As Evidenced by (1): patient report of swallowing diffiuclty obtained upon diet history and 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 2) Tube feed at goal provides ~900ml H20/d. Flush with 220ml H20 QID or adjust flushes per provider discretion. 3) Once patient tolerates tube feed at continuous goal for at least 24hrs can consider transition to cycled feeds @ 75ml/hr x 16hrs to allow 8hrs off during the day. Nutrition Interventions/Goals: Enteral Intake: Management of delivery rate of enteral nutrition Goal: Isosource 1.5 @ 50ml/hr = 1800kcal, 82g protein and 917ml H20/d. Education Documentation Nutrition Related Education, taught by Sherry Coronel RDN, LORE at 05/16/2025 10:42 AM. Learner: Patient Readiness: Acceptance Method: Explanation Response: Verbalizes Understanding Comment: Brief overview of tube feed process and what to expect. Nutrition Monitoring and Evaluation Enteral and Parenteral Nutrition Intake Determination: Enteral nutrition intake - Tolerate TF at goal rate Goal Status: New goal(s) identified Time Spent (min): 75 minutes [1] Past Medical History: Diagnosis Date Arthritis 10 years Callus of foot 05/03/2023 Cataract 20 years GERD (gastroesophageal reflux disease) 6 years HL (hearing loss) 5 years ago Hypertension 20 years ago Personal history of other diseases of the nervous system and sense organs History of cataract Unspecified visual disturbance Visual aura [2] Past Surgical History: Procedure Laterality Date CARDIAC CATHETERIZATION 2009 CATARACT EXTRACTION 04/12/2017 Cataract Surgery CIRCUMCISION, PRIMARY 88 years ago COLONOSCOPY 04/12/2017 Colonoscopy (Fiberoptic) HERNIA REPAIR 04/12/2017 Inguinal Hernia Repair JOINT REPLACEMENT 2016 OTHER SURGICAL HISTORY 04/12/2017 History Of Prior Surgery OTHER SURGICAL HISTORY 04/26/2022 Skin biopsy OTHER SURGICAL HISTORY 08/30/2021 Shoulder surgery OTHER SURGICAL HISTORY 08/30/2021 Hip replacement TONSILLECTOMY 04/12/2017 Tonsillectomy With Adenoidectomy VASECTOMY 40 years ago WISDOM TOOTH EXTRACTION [3] acetaminophen, 650 mg, nasoduodenal tube, q6h KIKA cholecalciferol, 125 mcg, nasoduodenal tube, Daily cyanocobalamin, 1,000 mcg, nasoduodenal tube, Daily enoxaparin, 30 mg, subcutaneous, q12h KIKA levETIRAcetam, 500 mg, nasoduodenal tube, BID metoprolol tartrate, 12.5 mg, nasoduodenal tube, BID pantoprazole, 40 mg, oral, Daily before breakfast polyethylene glycol, 17 g, nasoduodenal tube, Daily pravastatin, 40 mg, nasogastric tube, Nightly [4] [5] PRN medications: bisacodyl, lidocaine, ondansetron OR ondansetron, oxyCODONE, oxyCODONE, sennosides Associated Order(s): WOUND OSTOMY NURSING CONSULT Images from the original note were not included. Wound Care Consult Visit Date: 05/13/2025 Patient Name: Fawn Campos Reason for Consult: DTI to buttocks, right arm skin tear Assessment: Wound 05/13/25 Pressure Injury Buttock (Active) Date First Assessed/Time First Assessed: 05/13/25 1117 Primary Wound Type: Pressure Injury Location: Buttock Assessments 05/13/2025 11:17 AM Wound Image Site Assessment Non-blanchable erythema;[place] Griselda-Wound Assessment Blanchable erythema Non-staged Wound Description Not applicable Pressure Injury Stage Deep Tissue Wound Length (cm) 0.5 cm Wound Width (cm) 11 cm Wound Surface Area (cm^2) 4.32 cm^2 Wound Depth (cm) 0 cm Wound Volume (cm^3) 0 cm^3 State of Healing Closed wound edges Margins Attached edges Drainage Description None Drainage Amount None Dressing Foam Dressing Changed Reinforced No associated orders. Wound 05/13/25 Traumatic Skin Tear Arm Anterior;Lower;Right (Active) Date First Assessed/Time First Assessed: 05/13/25 1124 Primary Wound Type: Traumatic Secondary Wound Type - Traumatic: Skin Tear Location: Arm Wound Location Orientation: Anterior;Lower;Right Assessments 05/13/2025 11:24 AM Wound Image Site Assessment Red;Beat[place] Griselda-Wound Assessment Dry Wound Length (cm) 2 cm Wound Width (cm) 1 cm Wound Surface Area (cm^2) 1.57 cm^2 Wound Depth (cm) 0 cm Wound Volume (cm^3) 0 cm^3 State of Healing Early/partial granulation Margins Attached edges Treatments Cleansed;Site care Drainage Description None Drainage Amount None Dressing Foam;Xeroform Dressing Changed New Dressing Status Clean;Dry No associated orders. Buttocks with linear, nonblanchable redness. Per patient and primary RN, pt was in ED for about 48 hrs and recalls some discomfort to the buttocks but was not sure why or what was under him at the time. 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 Area still closed but due to deep tissue pressure injury, expect area to evolve and potentially open up as wound progresses. Right arm with shallow skin tear and scabbing. No bleeding on assessment, cleaned with vashe and gauze, placed xeroform strip and covered with 3 x 3 foam dressing. Wound Plan: Buttocks: clean with bath wipe, treat red area with cavilon, cover with foam dressing. Offload and ensure no lines beneath patient while in bed or in chair. Right arm: clean with vashe and gauze, cover using small xeroform strip, cover with 3 x 3 foam mepilex. Sign off. Please reconsult WOD team for new skin injury. Hayley Chang RN 05/13/2025 4:57 PM Associated Order(s): Inpatient consult to Geriatric Medicine Inpatient consult to Geriatric Medicine Consult performed by: Robb Rossi DO Consult ordered by: Kristy Giraldo DO Primary Team: Trauma Admit Date: 05/10/2025 Emergency Contact: Extended Emergency Contact Information Primary Emergency Contact: Diya Cameron Address: 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 male with h/o AAA, infrarenal aneurysm, HTN, HLD, CAD (on ASA) who presents after an unwitnessed fall on Sunday05/09/25. 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 Workup revealed injuries to the R orbital floor, Mild buckled fracture of the RT anterior cranial floor/orbital roof, Small RT (2 mm) subdural hematoma, Trace right frontal subarachnoid hematoma, Bilateral pubic rami fractures with extension into the acetabular wall, Nondisplaced sacral ala fracture on right. Cardiac workup in the ED was negative for MT or arhythmia. Pt has been evaluated by trauma surgery, orthopedic surgery, ENT and ophthalmology and no surgical intervention has been recommended. PT/OT is recommending high-intensity acute rehab on discharge. History per patient: Patient states he was walking into the ambulance bay at [facility] where he suddenly fell and woke up on the ground. He denies preceding dizziness/light headedness, CP, SOB, confusion. He does not recall tripping on anything. He denies recent or recurrent falls. Today, he endorses discomfort associated with his injuries, primarily in his hips, but denies discomfort or pain otherwise. Pt states he is regular with BM's at least once daily but that he has not had a BM since his fall three days ago. History per family/caregiver: (obtained in addition due to patient s) Diya, his and POA, states this has not happened before and that pt has not had any recent or recurrent falls. She does share that he has a lot of chronic and degenerative pain, and that his mobility/speed has slowly declined over the past several years. She states that they are both completely independent for all ADL and IADLs. They live in a multiple story home however all necessities including bedroom and bathroom are on the main floor. Prior to Admission Meds Prior to Admission Medications Prescriptions Last Dose Informant Patient Reported? Taking? alfuzosin (Uroxatral) 10 mg 24 hr tablet 05/09/2025 Bedtime Self No Yes Sig: TAKE 1 TABLET BY MOUTH ONCE DAILY DO NOT CRUSH, CHEW, OR SPLIT amLODIPine (Norvasc) 5 mg tablet 05/10/2025 Morning Self No Yes Sig: Take 1 tablet (5 mg) by mouth once daily. amitriptyline (Elavil) 10 mg tablet 05/09/2025 Bedtime Self No Yes Sig: Take 1 tablet (10 mg) by mouth once daily at bedtime. aspirin 81 mg EC tablet 05/10/2025 Morning Self Yes Yes Sig: Take 1 tablet (81 mg) by mouth once daily. benazepril (Lotensin) 40 mg tablet 05/10/2025 Morning Self No Yes Sig: Take 1 tablet (40 mg) by mouth once daily. escitalopram (Lexapro) 5 mg tablet 05/10/2025 Morning Self No Yes Sig: Take 1 tablet (5 mg) by mouth once daily. folic acid (Folvite) 1 mg tablet 05/10/2025 Morning Self No Yes Sig: Take 2 tablets (2 mg) by mouth once daily. methotrexate (Trexall) 2.5 mg tablet 05/10/2025 Morning Self Yes Yes Sig: Take 8 tablets (20 mg total) by mouth 1 (one) time per week. On Sundays metoprolol tartrate (Lopressor) 25 mg tablet 05/10/2025 Morning Self No Yes Sig: Take 1 tablet (25 mg) by mouth 2 times a day. omeprazole (PriLOSEC) [address] capsule 05/09/2025 Bedtime Self No Yes Sig: Take 1 capsule (40 mg) by mouth once daily in the morning. Take before meals. pravastatin (Pravachol) 40 mg tablet 05/09/2025 Bedtime Self No Yes Sig: Take 1 tablet (40 mg) by mouth once daily at bedtime. predniSONE (Deltasone) 10 mg tablet Unknown Self No Yes Sig: Take 1 Tablet Oral one time daily as needed. Take for 3 to 5 days with a flare. vit A/vit C/vit E/zinc/copper (PRESERVISION AREDS ORAL) 05/10/2025 Morning Self Yes Yes Sig: Take 1 tablet by mouth 2 times a day. Facility-Administered Medications: None Current Meds in Hospital Current Medications[1] The patient's outpatient electronic medical record (EMR) is reviewed, notable information includes being on four different blood pressure lowering medications and two anti-cholinergic medications. Past Medical History Medical History[2] Surgical History Surgical History[3] Family History His family history includes Arthritis in his mother; CARDIAC DISORDER in his father; Hearing loss in his mother; Hearing loss (age of onset: 70 - 79) in his father; Heart murmur in his mother; Hyperlipidemia in his mother; Hypertension in his mother; Pneumonia in his father; Stroke in his father; Suicide Attempts in his brother; Vision loss in his mother. Social History He reports that he quit smoking about 63 years ago. His smoking use included cigarettes and pipe. He has been exposed to tobacco smoke. He has never used smokeless tobacco. He reports that he does not currently use alcohol. He reports that he does not use drugs. 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 Highest Level of Education: Post-Graduate Degree Masters Community Resources: none : No Current living environment: home w/ , multi-floor home but only stays on main floor Activities of Daily Living: Basic ADLs: (I= independent, A= assistance, D= dependent) Bathing: I, Dressing: I, Toileting: I, Transferring: I, Continence: I, Feeding: I Adamson Index: 6 Instrumental ADLs: (I= independent, A= assistance, D= dependent) Ability to use phone: I, Shopping: I, Cooking: I, Housekeeping: I, Laundry: I, Transportation: I, Medications: I, Handle Finances: I [place] Scale: 8 Allergies Patient has no known allergies. Review of Systems Review of System: Constitutional: -Night sweats/fever: no -Weight change: no Integumentary: no Ears, Nose, Throat: -Hearing loss: mild, has hearing aids Eyes: -Vision loss: no Cardiovascular: -Chest Pain: no -Orthopnea: no -Paroxysmal nocturnal dyspnea: no -Edema: no Respiratory: -Dyspnea: no -Wheezing: no Gastrointestinal: -Appetite: good -Difficulty chewing/ swallowing: chokes when drinking water, not with food -Heartburn: no -Bowels: regular Genitourinary: -Incontinence: no -Nocturia: 1x/night Musculoskeletal: -Mobility: poor -Pain: poor Neurological: -Confusion: no -Falls: x1 -Gait: poor -Memory: normal -Tremor: no Psychiatric: -Mood: good -Sleep: good Documents on file and valid: Advance Directive/Living Will: Yes Health Care Power of Title Attorney: Yes Code Status: Full Code Confusion Assessment Method (CAM) Not on file. [place] Cognitive Assessment (MoCA) Not on file. Geriatric Depression Scale (GDS) Not on file. Mini-Cog (Early Dementia Detection) Not on file. [place] Mini-Mental State Exam (MMSE) Not on file. Patient Health Questionnaire (PHQ-9) Not on file. Last Recorded Vitals 05/12/2025 1:00 AM 05/12/2025 2:00 AM 05/12/2025 3:00 AM 05/12/2025 4:00 AM 05/12/2025 5:00 AM 05/12/2025 6:00 AM 05/12/2025 8:00 AM Vitals Systolic 116 114 126 123 110 127 111 Diastolic 60 60 63 63 63 63 78 BP Location Right arm Right arm Right arm Right arm Right arm Right arm Right arm Heart Rate 71 72 82 79 75 78 77 Temp 36.7 C (98.1 F) Resp 15 14 16 13 16 16 18 Vitals: 05/10/257 Weight: 66.2 kg (146 lb) Confusion Assessment Method(CAM) for diagnosis of delirium: 1. Acute onset or fluctuating course: absent/present: Absent 2. Inattention: absent/present: Absent 3. Disorganized thinking: absent/present: Absent 4. Altered level of consciousness: absent/present: Absent CAM: negative AT Score For Assessment of Delirium and Cognitive Impairment: Alertness: 0 Normal(fully alert,but not agitated, throughout assessment)=0 Mild sleepiness for <10 seconds after walking, then normal=0 Clearly abnormal=4 2. AMT4: 0 No mistakes=0 One mistake=1 Two or more mistakes/untestable=2 3. Attention: 0 Achieves seven months or more correctly=0 Starts but scores <7 months/ refuses to start=1 Untestable(cannot start because unwell, drowsy, inattentive)=2 4. Acute: 0 No=0 Yes=4 Total Score: 0 4 or above: Possible delirium +/- cognitive impairment 1-3: Possible cognitive impairment 0: Delirium or severe cognitive impairment unlikely(but delirium still possible if (4) information incomplete) Exam Constitutional: Appearance: Normal appearance. HENT: Head: Normocephalic. Comments: 3 cm lacerations just above the right brow with [address] face and head otherwise atraumatic, midface stable, no malocclusion Eyes: Extraocular Movements: Extraocular movements intact. Pupils: Pupils are equal, round, and reactive to light. Cardiovascular: Rate and Rhythm: Normal rate and regular rhythm. Pulmonary: Effort: No respiratory distress. Abdominal: General: There is no distension. Palpations: Abdomen is soft. Tenderness: There is no abdominal tenderness. Musculoskeletal: Cervical back: Normal range of motion. Comments: Range of motion decreased bilateral hips due to pain, muscle strength 5/5 bilateral upper and lower extremities Skin: General: Skin is warm. Capillary Refill: Capillary refill takes less than 2 seconds. Comments: Skin tears present on the dorsal right hand/knuckles and forearm without any active bleeding, wrapped with gauze; bilateral forearm ecchymoses Relevant Results Lab Results Component Value Date TSH 2.99 09/01/2024 [id number] 314 11/20/2024 Results from last 7 days Lab Units 05/11/25 0431 05/10/25 1422 WBC AUTO x10*3/uL 10.7 10.7 HEMOGLOBIN g/dL 11.4* 12.3* HEMATOCRIT % 32.9* 36.3* SODIUM mmol/L 139 138 POTASSIUM mmol/L 3.6 3.9 CHLORIDE mmol/L 104 106 CREATININE mg/dL 0.89 0.77 BUN mg/dL 21 26* CO2 mmol/L 30 26 INR -- 1.1 Recent Imaging Results XR cervical spine 2-3 views Result Date: 05/09/2025 Impression: 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 MACRO: None Signed by: Clement Estevez 05/09/2025 8:28 AM Dictation workstation: [id number] ECG 12 lead Normal sinus rhythm Normal ECG When compared with ECG of 07-DEC-2023 09:54, Premature atrial complexes are no longer Present See ED provider note for full interpretation and clinical correlation Confirmed by Brandee Hawkins ([id number]) on 05/11/2025 1:16:43 PM XR pelvis With [place] views Narrative: Interpreted By: Wanda Montalvo, and Spenser Jenkins STUDY: XR PELVIS WITH INLET OUTLET JUDET VIEWS; ; 05/11/2025 4:18 am INDICATION: Signs/Symptoms:eval. COMPARISON: CT chest abdomen pelvis 05/10/2025. ACCESSION NUMBER(S): [id number] ORDERING CLINICIAN: LEONARDO BERGER FINDINGS: Five view radiographs of the pelvis were performed. Generalized diffuse osteopenia. 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 Fractures of the right superior and inferior pubic rami are noted, better visualized on prior CT. Acute bilateral acetabular and right sacral alar fractures are better appreciated on comparison CT chest abdomen pelvis. Status post left hip arthroplasty. No perihardware lucency to suggest loosening. Degenerative changes of the lower lumbar spine, SI joints and symphysis pubis. Radiopaque contrast within the bladder. Vascular calcifications noted. Impression: Acute pubic rami, acetabular, and right sacral ala fractures are better appreciated on comparison CT chest abdomen pelvis. Please refer to separate report of dedicated CT for detail. Postsurgical and degenerative changes as noted above. I personally reviewed the images/study and I agree with the findings as stated by Gregory Dueñas MD (PGY-3). This study was interpreted at [place], [place]. MACRO: None Signed by: Wanda Montalvo 05/11/2025 5:01 AM Dictation workstation: [id number] XR chest 1 view Narrative: STUDY: Chest Radiograph; 05/11/2025 1:13AM INDICATION: Evaluation for surgery trauma. COMPARISON: 09/23/2022 XR chest ACCESSION NUMBER(S): [id number] ORDERING CLINICIAN: SATNIAGO MENENDEZ TECHNIQUE: Frontal chest was obtained at 01:12 hours. FINDINGS: CARDIOMEDIASTINAL SILHOUETTE: Cardiomediastinal silhouette is normal in size and configuration. Mural calcifications through the aortic arch. LUNGS: No regions of consolidation. No regions of atelectasis. ABDOMEN: No remarkable upper abdominal findings. BONES: No acute osseous changes. Impression: No acute pleural or parenchymal disease.. Signed by Isidoro Baltazar MD ECG 12 lead Normal sinus rhythm Normal ECG When compared with ECG of 10-MAY-2025 13:54, No significant change was found See ED provider note for full interpretation and clinical correlation Confirmed by Yolanda Garcia ([id number]) on 05/11/2025 3:47:[address] head wo IV contrast Narrative: Interpreted By: Wanda Montalvo and Omar Mahmoud STUDY: CT HEAD WO IV CONTRAST; 05/10/2025 11:27 pm INDICATION: Signs/Symptoms:Trauma, intracranial bleeding. Stability scan. COMPARISON: CT head without IV contrast 05/10/2025 3:03 p.m.. ACCESSION NUMBER(S): [id number] ORDERING CLINICIAN: CARRI GREER TECHNIQUE: Noncontrast axial CT scan of head was performed. Angled reformats in brain and bone windows were generated. The images were reviewed in bone, brain, blood and soft tissue windows. FINDINGS: CSF Spaces: The ventricles, sulci and basal cisterns are within normal limits. Similar size and appearance of extra-axial hemorrhage along the anterolateral right frontal lobe (series 204, image 49) currently measuring 3 mm in thickness (series 206, image 39), previously measuring 2 mm. Parenchyma: There is mild periventricular and subcortical white matter hypodensities, similar as compared to prior and likely represents sequela of chronic microvascular ischemic changes. No new loss of callaway-white differentiation. There is no mass effect or midline shift. Several linear foci of hyperattenuation noted along the sulci right parietal lobe suspicious for subarachnoid hemorrhage. A subtle hyperdense focus is redemonstrated along the left frontal lobe as seen on axial image 60 of series 204. This is suspicious for small focus of extra-axial hemorrhage. No new hemorrhage is identified. Calvarium: Redemonstrated minimally displaced acute fracture of the right orbital roof (series 206 image 40). Soft tissue laceration right frontal scalp extending to the zygoma. Paranasal sinuses and mastoids: Visualized paranasal sinuses and mastoids are clear. Atherosclerotic calcification of the carotid siphons and vertebral arteries Impression: Redemonstration of minimally displaced acute fracture of the right orbital roof with stable extra-axial hemorrhage along the anterolateral right frontal lobe. Additional linear hyperdense foci along the sulci right parietal lobe suspicious for subarachnoid hemorrhage. No new hemorrhage is identified. Question subtle hyperdense focus along the left frontal lobe opacity described above may relate to small focus of extra-axial hemorrhage. Attention on continued follow-up is advised. I personally reviewed the images/study and I agree with the findings as stated by Gregory Dueñas MD (PGY-3). This study was interpreted at [place], [place]. MACRO: None Signed by: Wanda Montalvo 05/11/2025 12:03 AM Dictation workstation: [id number] Head/Brain Imaging === Results for orders placed during the hospital encounter of 05/10/25 === CT head wo IV contrast [[id number]] 05/10/2025 Status: Normal Redemonstration of minimally displaced acute fracture of the right orbital roof with stable extra-axial hemorrhage along the anterolateral right frontal lobe. Additional linear hyperdense foci along the sulci right parietal lobe suspicious for subarachnoid hemorrhage. No new hemorrhage is identified. Question subtle hyperdense focus along the left frontal lobe opacity described above may relate to small focus of extra-axial hemorrhage. Attention on continued follow-up is advised. I personally reviewed the images/study and I agree with the findings as stated by Gregory Dueñas MD (PGY-3). This study was interpreted at [place], [place]. MACRO: None Signed by: Wanda Montalvo 05/11/2025 12:03 AM Dictation workstation: [id number] No results found for this or any previous visit. DATA: EKG: QTC Encounter Date: 05/10/25 ECG 12 lead Result Value Ventricular Rate 72 Atrial Rate 72 [place] Interval 190 QRS Duration 104 QT Interval 394 QTC Calculation(Bazett) 431 P [place] 31 R [place] -15 T [place] 44 QRS Count 12 Q Onset 210 P Onset 115 P Offset 178 T Offset 407 QTC [place] 418 Narrative Normal sinus rhythm Normal ECG When compared with ECG of 10-MAY-2025 13:54, No significant change was found See ED provider note for full interpretation and clinical correlation Confirmed by Yolanda Garcia ([id number]) on 05/11/2025 3:47:31 AM Anti-psychotics in 48 hours: Opioids/Benzodiazepines in 48 hours: Anticholinergics on board:No Restraints:No Indwelling catheters:Yes - can't get up Last BM: 3 days UO in 24 hours: not documented Activity in the past 24 hours: n/a Need for ambulatory devices: Assessment/Plan This is a/an 89 y.o. year old male, with past medical history relevant for AAA, infrarenal aneurysm, HTN, HLD, CAD (on ASA) presented after an unwitnessed fall, found to have injuries to the R orbital floor, Mild buckled fracture of the RT anterior cranial floor/orbital roof, Small RT (2 mm) subdural hematoma, Trace right frontal subarachnoid hematoma, Bilateral pubic rami fractures with extension into the acetabular wall, Nondisplaced sacral ala fracture on right. Geriatrics was consulted due to advanced age falls. Assessment & Plan Fall, initial encounter Fall - cause unclear; orthostasis vs. Arhythmia vs. Autonomia vs. Polypharmacy - EKG/trops negative on admission, QTC 431 - Lipid panel normal, no A1c, TSH 8mo ago normal, b12 7mo normal - vit d pending - Hx of being on alendronate, no evidence of osteoporosis/ DEXA - recommend orthostats; lying and sitting only 2. Polypharmacy - on several peripheral vasodilators that can cause orthostasis and hypotension (alfuzosin, amlodipine, benazepril, metoprolol) - amitryptyline and alfuzosin are anticholinergic and can cause sedation/ weakness/ hypotension - alfuzosin, amlodipine, benazepril and amitryptyline have been held since admission; continue to hold and DO NOT resume on discharge 3. HTN - alfuzosin, amlodipine, benazepril have been held since admission; continue to hold and DO NOT resume on discharge - BP has been stable - do NOT resume on discharge Care Transitions: -Recommended level for discharge: acute rehab -Home going considerations: lives alone with -Primary care physician: Don Barrera MD Goals of Care: -Health care power of deputy attorney general: Diya () -Living will: present Code status: FULL CODE Geriatric medicine will continue to follow the patient. Thank you for allowing geriatric medicine to be involved in the care of your patient. Geriatric medicine consultation team is available during work hours Sunday through Sunday. For any emergency issues requiring immediate assistance over the weekend, please page Geriatrics pager [phone] Consult Billing Time Prep time on date of patient encounter(minutes): Time directly with patient/family/caregiver(minutes ): Documentation time(minutes): TOTAL TIME(minutes): Robb Rossi DO PGY3 Family Medicine [1] Current Facility-Administered Medications Medication Dose Route Frequency Provider Last Rate Last Admin acetaminophen (Tylenol) tablet 650 mg 650 mg oral q6h KIKA Daryl Dickson 650 mg at 05/12/25 0616 levETIRAcetam (Keppra) tablet 500 mg 500 mg oral BID February Evelyn Granda MD 500 mg at 05/11/25 2140 metoprolol tartrate (Lopressor) tablet 12.5 mg 12.5 mg oral BID February Evelyn Granda MD 12.5 mg at 05/11/25 2140 ondansetron (Zofran) tablet 4 mg 4 mg oral q8h PRN Daryl Dickson Or ondansetron (Zofran) injection 4 mg 4 mg intravenous q8h PRN Daryl Dickson oxyCODONE (Roxicodone) immediate release tablet 2.5 mg 2.5 mg oral q6h PRN Daryl Dickson 2.5 mg at 05/11/25 1849 oxyCODONE (Roxicodone) immediate release tablet 5 mg 5 mg oral q4h PRN Daryl Dickson 5 mg at 05/12/25 0615 oxygen (O2) therapy inhalation Continuous PRN - O2/gases Daryl Dickson oxymetazoline (Afrin) 0.05 % nasal spray 2 spray 2 spray Each Nostril q12h PRN Daryl Dickson pantoprazole (ProtoNix) EC tablet 40 mg 40 mg oral Daily before breakfast Daryl Dickson 40 mg at 05/12/25 0616 polyethylene glycol (Glycolax, Miralax) packet 17 g 17 g oral Daily Daryl Dickson pravastatin (Pravachol) tablet 40 mg 40 mg oral Nightly May L MD Jesus Alberto 40 mg at 05/11/250 Current Outpatient Medications Medication Sig Dispense Refill alfuzosin (Uroxatral) 10 mg 24 hr tablet TAKE 1 TABLET BY MOUTH ONCE DAILY DO NOT CRUSH, CHEW, OR SPLIT 90 tablet 3 amitriptyline (Elavil) 10 mg tablet Take 1 tablet (10 mg) by mouth once daily at bedtime. 90 tablet 3 amLODIPine (Norvasc) 5 mg tablet Take 1 tablet (5 mg) by mouth once daily. 90 tablet 3 aspirin 81 mg EC tablet Take 1 tablet (81 mg) by mouth once daily. benazepril (Lotensin) 40 mg tablet Take 1 tablet (40 mg) by mouth once daily. 90 tablet 3 escitalopram (Lexapro) 5 mg tablet Take 1 tablet (5 mg) by mouth once daily. 90 tablet 3 folic acid (Folvite) 1 mg tablet Take 2 tablets (2 mg) by mouth once daily. 180 tablet 3 methotrexate (Trexall) 2.5 mg tablet Take 8 tablets (20 mg total) by mouth 1 (one) time per week. On Sundays metoprolol tartrate (Lopressor) 25 mg tablet Take 1 tablet (25 mg) by mouth 2 times a day. 180 tablet 3 omeprazole (PriLOSEC) [address] capsule Take 1 capsule (40 mg) by mouth once daily in the morning. Take before meals. 90 capsule 3 pravastatin (Pravachol) 40 mg tablet Take 1 tablet (40 mg) by mouth once daily at bedtime. 90 tablet 3 predniSONE (Deltasone) 10 mg tablet Take 1 Tablet Oral one time daily as needed. Take for 3 to 5 days with a flare. 30 tablet 0 vit A/vit C/vit E/zinc/copper (PRESERVISION AREDS ORAL) Take 1 tablet by mouth 2 times a day. [2] Past Medical History: Diagnosis Date Arthritis 10 years Callus of foot 05/03/2023 Cataract 20 years GERD (gastroesophageal reflux disease) 6 years HL (hearing loss) 5 years ago Hypertension 20 years ago Personal history of other diseases of the nervous system and sense organs History of cataract Unspecified visual disturbance Visual aura [3] Past Surgical History: Procedure Laterality Date CARDIAC CATHETERIZATION 2009 CATARACT EXTRACTION 04/12/2017 Cataract Surgery CIRCUMCISION, PRIMARY 88 years ago COLONOSCOPY 04/12/2017 Colonoscopy (Fiberoptic) HERNIA REPAIR 04/12/2017 Inguinal Hernia Repair JOINT REPLACEMENT 2016 OTHER SURGICAL HISTORY 04/12/2017 History Of Prior Surgery OTHER SURGICAL HISTORY 04/26/2022 Skin biopsy OTHER SURGICAL HISTORY 08/30/2021 Shoulder surgery OTHER SURGICAL HISTORY 08/30/2021 Hip replacement TONSILLECTOMY 04/12/2017 Tonsillectomy With Adenoidectomy VASECTOMY 40 years ago WISDOM TOOTH EXTRACTION Cosigned by Zahira Douglas MD at 05/13/2025 8:15 AM EDT Associated attestation - Zahira Douglas MD - 05/13/2025 8:15 AM EDT I saw and evaluated the patient. I personally obtained the de jesus and critical portions of the history and physical exam or was physically present for de jesus and critical portions performed by the resident. I reviewed the resident s documentation and discussed the patient with the resident. I agree with the resident s medical decision making as documented in their note with the exception/addition of the following: Patient was seen and examined. His pain appeared fairly controlled. He was on 2L oxygen, suspect atelectasis. Recommend aggressive use of incentive spirometer. Patient with history of ?osteoporosis, was on alendronate in the past. Recommend DEXA scan in the outpatient Will need Vitamin D level checked in this hospital; stay. Zahira Douglas MD ORTHOPAEDIC SURGERY CONSULT NOTE HPI: Orthopaedic Problems/Injuries: R LC1 pelvic ring injury Other Injuries: facial fxs, SDH, tSAH, 89M (s/p L GABO 10y ago at OSH, s/p L rTSA 6y ago at OSH, CAD, TIA, AAA, GERD) p/a mGLF sustaining above. Denies numbness, tingling, and open wounds on the affected limb. PMH: per HPI/EMR PSH: per HPI/EMR SocHx: Denies alcohol, tobacco, or illicit drug use Ambulatory Status: Community ambulator without assistive devices FamHx: Non-contributory to this patient's acute orthopaedic problem other than as mentioned in HPI Allergies: Allergies Reviewed by Gauri Stiles RN on 05/10/2025 No Known Allergies Medications: Denies home anticoagulation use Current Outpatient Medications Medication Instructions alfuzosin (UROXATRAL) 10 mg, oral, Daily, DO NOT CRUSH CHEW OR SPLIT amitriptyline (ELAVIL) 10 mg, oral, Nightly amLODIPine (NORVASC) 5 mg, oral, Daily aspirin 81 mg, oral, Daily benazepril (LOTENSIN) 40 mg, oral, Daily escitalopram (LEXAPRO) 5 mg, oral, Daily folic acid (FOLVITE) 2 mg, oral, Daily methotrexate (Trexall) 2.5 mg tablet 8 tablets, oral, Once Weekly, On Sundays metoprolol tartrate (LOPRESSOR) 25 mg, oral, 2 times daily omeprazole (PRILOSEC) 40 mg, oral, Daily before breakfast pravastatin (PRAVACHOL) 40 mg, oral, Nightly predniSONE (Deltasone) 10 mg tablet Take 1 Tablet Oral one time daily as needed. Take for 3 to 5 days with a flare. vit A/vit C/vit E/zinc/copper (PRESERVISION AREDS ORAL) 1 tablet, 2 times daily ROS: 14 point ROS negative except as above OBJECTIVE: BP 99/54 Pulse 70 Temp 36.3 C (97.3 F) (Temporal) Resp 10 Ht 1.676 m (5' 6) Wt 66.2 kg (146 lb) SpO2 95% BMI 23.57 kg/m PHYSICAL EXAM Gen: NAD HEENT: normocephalic atraumatic Psych: appropriate mood and affect Resp: nonlabored breathing Cardiac: extremities WWP Neuro: alert and oriented Skin: no rashes MSK: Left Lower Extremity: -Skin in tact -Tender at the site of injury -Fires EHL/TA/Gastroc -SILT in sural, saphenous, superficial/deep peroneal, tibial nerve distributions -Foot warm, well perfused -Palpable DP pulse -Compartments soft and compressible Right Lower Extremity: -Skin in tact -Tender at the site of injury -Fires EHL/TA/Gastroc -SILT in sural, saphenous, superficial/deep peroneal, tibial nerve distributions -Foot warm, well perfused -Palpable DP pulse -Compartments soft and compressible A full secondary exam was performed and all relevant findings discussed and noted above. IMAGING: X- and advanced imaging reveal the following injuries: - XR/CT w bilateral SPR/IPR fxs, R anterior buckle sacral fx. ASSESSMENT: Orthopaedic Problems/Injuries: - R LC1 pelvic ring injury 89M (s/p L GABO 10y ago at OSH, s/p L rTSA 6y ago at OSH, CAD, TIA, AAA, GERD) p/a mGLF. Also w facial fxs, tSAH, SDH. Closed, NVI. Ambulatory wo assistive devices at baseline. XR/CT w bilateral SPR/IPR fxs, R anterior buckle sacral fx PLAN: - No acute orthopaedic intervention - Recommend trial of nonoperative management,/trial of ambulation with PT OT. - Weight bearing status: WBAT BLLE - Antibiotics: Per primary, none indicated from an orthopedic perspective - Analgesia per ED/Primary - F/U with Dr. Kristy Ramos in 2 weeks. Call [phone] to schedule appointment. - Please don't hesitate to page with questions DISPOSITION: Per primary, pending trial of ambulation This patient was staffed with the attending physician, Dr. Kristy Resendiz MD Orthopedic Surgery PGY-2 [facility] [place] [facility] While admitted, this patient will be followed by the Orthopedic Trauma Team. Please contact the residents listed below with any questions. For urgent matters at any time, or for any needs between 6 PM and 6 AM Sunday through Sunday, on weekends, or on holidays, please page [place] [phone]. Trauma: First Call: Antonio Guzman, PGY-1/Heike Arzate, PGY-1 Second Call: Sally Cutler PGY-2 Third Call: Chente Ricci PGY-3 Cosigned by Kristy Ramos MD at 05/11/2025 1:07 PM EDT Associated Order(s): IP CONSULT TO ENT ENT DEPARTMENT CONSULTATION NOTE Name: Fawn Cameron : 1935 Consulting Attending: Carri Greer MD;Leonardo* Reason for Consult: Orbital roof fracture Patient History of Present Illness 89 y.o. male presented to [facility] on 05/10 after sustaining injuries from a ground level fall which took place while walking into the hospital. On secondary survey significant head and neck injuries included R orbital roof fracture (non-displaced) and possible R orbital floor fracture (non-displaced with minimal herniation of adjacent orbital fat), which was appreciated on CT maxillofacial bones ENT is consulted for further management of facial trauma. Other injuries include: 2 mm SDH, pelvic fractures Past Medical History Medical History[1] Past Surgical History Surgical History[2] Family History Family History[3] Social History Social History Tobacco Use Smoking status: Former Current packs/day: 0.00 Types: Cigarettes, Pipe Quit date: 04/22/1962 Years since quittin.0 Passive exposure: Past Smokeless tobacco: Never Substance Use Topics Alcohol use: Not Currently Medications Scheduled Medications[4] Current Medications[5] Allergies Allergies[6] Physical Exam BP 135/68 Pulse 89 Temp 36.3 C (97.3 F) (Temporal) Resp 13 Ht 1.676 m (5' 6) Wt 66.2 kg (146 lb) SpO2 97% BMI 23.57 kg/m Gen: AOx3, NAD, breathing comfortably on RA CV: pulses equal bilaterally, no tachycardia Chest: symmetric chest rise, no increased work of breathing Neuro: CNNs III, V, and VII grossly intact and symmetric bilaterally Head: symmetric, no lesions/masses appreciated, no lacerations to scalp Face: R lateral brow facial lacerations repaired with non-dissolvable, simple interrupted sutures, maxilla stable without rocking motion, no palpable stepoffs along bilateral orbital rims, maxilla, nasal bones, or mandible Eyes: EOMI, PERRL, no scleral icterus, mild R sided periorbital edema/ecchymoses, intraocular distance appropriate, no deviation or limitation of gaze or appreciable entrapment Ears: R - auricle normal, L - auricle normal, No external lacerations. No postauricular ecchymoses. Nose: vestibules clear, anterior nares clear, inferior turbinates not engorged bilaterally, no septal hematoma visible or palpable OC/OP: no masses/lesions identified on visual and bimanual exam, OP clear without drainage or erythema, class 1 occlusion, no intraoral lacerations, no trismus Neck: flat, symmetric, no thyromegaly, no masses/lesions, no LAD appreciated, no external lacerations Voice: clear and strong, normal volume and projection, no breathiness or increased voicing effort Relevant Labs @CBC@ @BMP@ No intake or output data in the 24 hours ending 05/10/25 2349 @INR@ Imaging: I have personally reviewed the CT maxillofacial bones dated 05/10 which demonstrates: -Fracture of the R orbital roof with trace overlying subdural hematoma, possible R orbital floor fracture with minimal displacement of orbital fat on imaging, no notable injuries or hematoma to the extraocular muscles, no other facial bone fractures appreciated Procedures: No procedures performed Assessment and Plan Mr. Cameron is a 89 y.o. male who ENT is consulted for management of Orbital fractures. Clinical examination as well as ancillary testing is most consistent with diagnosis of R orbital roof fracture and possible orbital floor fracture. Both are non-displaced and non-operative from ENT standpoint. Neurosurgery already onboard due to trace SDH noted in the anterior skull base. Per ophthalmology evaluation, no concerns for entrapment, globe compromise, or retro-orbital hematoma Recommendations - No acute ENT intervention at this time - Recommend Sinus precautions as documented below - Patient can follow-up in 2-3 weeks with ENT for re-evaluation - Thank you for involving us in the care of this patient. Please reach out if there are any questions or concerns. SINUS PRECAUTIONS FOR 2 WEEKS Do not blow your nose or breathing in strongly through your nose; you may wipe your nose gently. Recommend head of bed elevation when sleeping Do not sneeze with mouth closed (have lips/mouth open while sneezing). Avoid straining with exertion, heavy lifting, or straining during bowel movements Do not drink through a straw or smoke. You may use saline nasal spray ([place]) and Afrin as needed for congestion and bleeding. If using Afrin please take as permitted on the bottle (for every 3 days of use you must take a 1 day holiday before using it again). Note not final until signed by an attending. Riaz Carrillo MD - PGY2 Otolaryngology - Head and Neck Surgery Head & Neck team phone: [phone] ENT consult pager: [phone] Pediatric ENT pager: [phone] ENT Outpatient scheduling number: [phone] [1] Past Medical History: Diagnosis Date Arthritis 10 years Callus of foot 05/03/2023 Cataract 20 years GERD (gastroesophageal reflux disease) 6 years HL (hearing loss) 5 years ago Hypertension 20 years ago Personal history of other diseases of the nervous system and sense organs History of cataract Unspecified visual disturbance Visual aura [2] Past Surgical History: Procedure Laterality Date CARDIAC CATHETERIZATION 2010 CATARACT EXTRACTION 04/12/2017 Cataract Surgery CIRCUMCISION, PRIMARY 88 years ago COLONOSCOPY 04/12/2017 Colonoscopy (Fiberoptic) HERNIA REPAIR 04/12/2017 Inguinal Hernia Repair JOINT REPLACEMENT 2015 OTHER SURGICAL HISTORY 04/12/2017 History Of Prior Surgery OTHER SURGICAL HISTORY 04/26/2022 Skin biopsy OTHER SURGICAL HISTORY 08/30/2021 Shoulder surgery OTHER SURGICAL HISTORY 08/30/2021 Hip replacement TONSILLECTOMY 04/12/2017 Tonsillectomy With Adenoidectomy VASECTOMY 40 years ago WISDOM TOOTH EXTRACTION [3] Family History Problem Relation Name Age of Onset Heart murmur Mother Adena Obrecht Hyperlipidemia Mother Adena Obrecht Arthritis Mother Adena Obrecht Hearing loss Mother Adena Obrecht Hypertension Mother Adena Obrecht Vision loss Mother Adena Obrecht Other (CARDIAC DISORDER) Father Pneumonia Father Suicide Attempts Brother Heath Stroke Father Hearing loss Father 70 - 79 [4] ampicillin-sulbactam, 3 g, intravenous, q6h [5] Current Facility-Administered Medications: ampicillin-sulbactam (Unasyn) 3 g in sodium chloride 0.9% IV 100 mL, 3 g, intravenous, q6h, Carri Greer MD Current Outpatient Medications: alfuzosin (Uroxatral) 10 mg 24 hr tablet, TAKE 1 TABLET BY MOUTH ONCE DAILY DO NOT CRUSH, CHEW, OR SPLIT, Disp: 90 tablet, Rfl: 3 amitriptyline (Elavil) 10 mg tablet, Take 1 tablet (10 mg) by mouth once daily at bedtime., Disp: 90 tablet, Rfl: 3 amLODIPine (Norvasc) 5 mg tablet, Take 1 tablet (5 mg) by mouth once daily., Disp: 90 tablet, Rfl: 3 aspirin 81 mg EC tablet, Take 1 tablet (81 mg) by mouth once daily., Disp: , Rfl: benazepril (Lotensin) 40 mg tablet, Take 1 tablet (40 mg) by mouth once daily., Disp: 90 tablet, Rfl: 3 escitalopram (Lexapro) 5 mg tablet, Take 1 tablet (5 mg) by mouth once daily., Disp: 90 tablet, Rfl: 3 folic acid (Folvite) 1 mg tablet, Take 2 tablets (2 mg) by mouth once daily., Disp: 180 tablet, Rfl: 3 methotrexate (Trexall) 2.5 mg tablet, Take 8 tablets (20 mg total) by mouth 1 (one) time per week. On Sundays, Disp: , Rfl: metoprolol tartrate (Lopressor) 25 mg tablet, Take 1 tablet (25 mg) by mouth 2 times a day., Disp: 180 tablet, Rfl: 3 omeprazole (PriLOSEC) [address] capsule, Take 1 capsule (40 mg) by mouth once daily in the morning. Take before meals., Disp: 90 capsule, Rfl: 3 pravastatin (Pravachol) 40 mg tablet, Take 1 tablet (40 mg) by mouth once daily at bedtime., Disp: 90 tablet, Rfl: 3 predniSONE (Deltasone) 10 mg tablet, Take 1 Tablet Oral one time daily as needed. Take for 3 to 5 days with a flare., Disp: 30 tablet, Rfl: 0 vit A/vit C/vit E/zinc/copper (PRESERVISION AREDS ORAL), Take 1 tablet by mouth 2 times a day., Disp: , Rfl: [6] No Known Allergies Cosigned by Joon Khoury MD at 05/14/2025 9:31 AM EDT Associated Order(s): IP CONSULT TO OPHTHALMOLOGY Reason For Consult Right orbital fracture History Of Present Illness Fawn Campos is a 89 y.o. 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 Patient says he is seeing normally, he does not have any vision changes, everything looks clear. He does not have any new flashes or floaters, no light sensitivity, no eye pain, no double vision, no pain with eye movements, no nausea or vomiting. Denies any other visual complaints including eye pain, diplopia, flashes, floaters, or sudden vision loss. History of CEIOL OU, on refresh gtts Denies prior laser procedures, injections Past Medical History He has a past medical history of Arthritis (10 years), Callus of foot (05/03/2023), Cataract (20 years), GERD (gastroesophageal reflux disease) (6 years), HL (hearing loss) (5 years ago), Hypertension (20 years ago), Personal history of other diseases of the nervous system and sense organs, and Unspecified visual disturbance. Exam Base Eye Exam Visual Acuity (Snellen - Linear) Right Left Near cc 20/20 20/20 Tonometry (Goldmann Applanation, 10:40 PM) Right Left Pressure 9 9 Pupils Pupils Dark Light Shape React APD Right PERRL, No APD 1 1 Round Minimal ABDIRASHID Left PERRL, No APD 1 1 Round Minimal ABDIRASHID Received opioids prior to exam Visual Estrella (Counting fingers) Left Right Full Full Extraocular Movement Right Left Full, Ortho Full, Ortho No clint, n/v Neuro/Psych Oriented x3: Yes Dilation Both eyes: deferred 2/2 not cleared for dilation @ 10:40 PM Slit Lamp and Fundus Exam External Exam Right Left External 4cm laceration above right brow s/p repair, scant dried blood on face Normal Slit Lamp Exam Right Left Lids/Lashes Normal Normal Conjunctiva/Sclera tr injection White and quiet Cornea Clear no staining Clear no staining Anterior Chamber Deep and quiet no cell Deep and quiet no cell Iris Round and reactive Round and reactive Lens PCIOL PCIOL Anterior Vitreous Normal Normal Last Recorded Vitals Blood pressure 135/68, pulse 89, temperature 36.3 C (97.3 F), temperature source Temporal, resp. rate 13, height 1.676 m (5' 6), weight 66.2 kg (146 lb), SpO2 97%. Relevant Results CT maxillofacial bones wo contrast with right orbital roof fracture, no evidence of globe compromise, entrapment, or retrobulbar hematoma Assessment/Plan #Orbital fractures as described -No acute surgical intervention from an ophthalmic standpoint -no evidence of muscle entrapment, globe compromise or retrobulbar hematoma -no medical comorbidities that would increase risk of infection (sinusitis, immunocompromise, recent hospitalization), no mandatory need for systemic antibiotics but can be considered if there are any infectious symptoms soon -return precautions given include diplopia, extreme nausea/vomiting with movement of eyes, decreased vision, increased pain of eyes or any other symptoms -avoid blowing nose, nasal decongestants (Afrin) as needed -elevate head of bed -apply ice packs 20 minutes on affected eye every hour for first 24-48 hours -follow up 1-2 weeks optometry Please page ophthalmology for dilated eye exam when cleared [phone] Recommend follow-up with [facility], within 1-2 weeks. Please call [phone] (EYES) to make appointment. Thank you for the consult. Please contact the Ophthalmology service with further questions or concerns. Abigail Richardson MD Ophthalmology, PGY-3 Ophthalmology Adult Pager - [phone] Ophthalmology Pediatrics Pager (8am- 5pm) - [phone] For adult follow-up appointments, call: [phone] For pediatric follow-up appointments, call: [phone] NOTE: This note is not finalized until attending reviews and signs. Brief [facility] Ophthalmology Abbreviations: OD: right eye OS: left eye OU: both eyes VA: visual acuity IOP: intraocular pressure EOMs: extraocular movements CVF: confrontal visual estrella DFE: dilated fundus exam DBH: dot blot hemorrhage CWS: cotton wool spot AC: anterior chamber RD: retinal detachment PVD: posterior vitreous detachment Cosigned by Don Sanchez MD at 05/11/2025 8:59 AM EDT Associated attestation - Don Sanchez MD - 05/11/2025 8:59 AM EDT I was NOT present during the evaluation of the patient. I reviewed the resident/fellow's documentation and discussed the patient with the resident/fellow in more detail as necessary. I agree with the resident/fellow's medical decision making as documented in the note. documented in this encounter [facility] Work Phone: 05-15-2025 Plan of care note The patient's goals for the shift include safety The clinical goals for the shift include Pt will remian safe and HDS Over the shift, the patient did make progress toward the following goals. Pt sat in the chair for a couple hours today. Dobhoff inserted and awaiting to start feeds once pump available, refrigeration lead to see pt tomorrow morning and follow up. Still on 1L, desats to 88 on RA. Pt voiding, had a BM, passing gas. Ongoing care, call light within reach, bed alarm in place T [facility] 05-15-2025 Procedure note Images from the original note were not included. CLINICAL NUTRITION PROCEDURE NOTE Small Bore Feeding Tube Placement Patient with dysphagia requiring small bore feeding tube placement for medication and nutrition administration. All labs and images examined for appropriateness of tube placement. Procedure explained to the patient and/or family. Feeding Tube Placement Active Feeding Tube Placement NG/OG/Feeding Tube Small bore feeding tube 12 Fr Left nostril Properties Placement date 05/15/25 Site Left nostril Placement time 1520 Days less than 1 Placed by: Sharon Silverio Hand Hygiene Completed: Yes Type of Tube: Feeding Tube Tube Length (cm): 75 cm Tube Type: Small bore feeding tube Type of Small Bore Tube: Electromagnetic feeding tube Initial Placement Verification on Monitor: Gastric Specify Gastric Placement: Antrum NG/OG Tube Size: 12 Fr Difficulty with Placement: No Assessments Row Name 05/15/25 1558 Tube Status Clamped Placement Verification X-ray Distal Tube Measurement (cm) 75 cm Site Assessment Clean Response To Intervention No resistance met Tube Securement Nasal bridle Appropriate imaging orders have been placed to check tube placement. [facility] 05-15-2025 Procedure note Images from the original note were not included. CLINICAL NUTRITION PROCEDURE NOTE Small Bore Feeding Tube Placement Patient with dysphagia requiring small bore feeding tube placement for medication and nutrition administration. All labs and images examined for appropriateness of tube placement. Procedure explained to the patient and/or family. Feeding Tube Placement Active Feeding Tube Placement NG/OG/Feeding Tube Small bore feeding tube 12 Fr Left nostril Properties Placement date 05/15/25 Site Left nostril Placement time 1520 Days less than 1 Placed by: Sharon Silverio Hand Hygiene Completed: Yes Type of Tube: Feeding Tube Tube Length (cm): 75 cm Tube Type: Small bore feeding tube Type of Small Bore Tube: Electromagnetic feeding tube Initial Placement Verification on Monitor: Gastric Specify Gastric Placement: Antrum NG/OG Tube Size: 12 Fr Difficulty with Placement: No Assessments Row Name 05/15/25 1558 Tube Status Clamped Placement Verification X-ray Distal Tube Measurement (cm) 75 cm Site Assessment Clean Response To Intervention No resistance met Tube Securement Nasal bridle Appropriate imaging orders have been placed to check tube placement. Associated Order(s): ELECTRICAL AND INSTRUMENTATION MECHANIC MODIFIED BARIUM SWALLOW EVALUATION Speech-Language Pathology Inpatient Modified Barium Swallow Study Patient Name: Fawn Campos : 1935 Today's Date: 05/14/25 Start Time: 1300 Stop Time: 1335 Time Calculation (min): 35 Modified Barium Swallow Study completed. Informed verbal consent obtained prior to completion of exam. Trials of thin liquids via tsp/straw, mildly (nectar) thick liquids via tsp/straw, moderately (honey) thick liquids via tsp/straw, purees, and regular solids were given. 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 Respiratory Status: Nasal cannula Current diet: NPO w/ no means of nutrition/hydration Pain: Pain Scale: 0-10 Ratin DIET RECOMMENDATIONS: NPO with frequent aggressive oral care. 10 ice chips/hr allowed for pleasure, safe swallow stimulation, and after oral care to prevent buildup of bacteria within the oropharynx Question need for GOC discussions re: assuming the risk of aspiration w/ continued PO intake ELECTRICAL AND INSTRUMENTATION MECHANIC PLAN: Skilled ELECTRICAL AND INSTRUMENTATION MECHANIC Services: Skilled ELECTRICAL AND INSTRUMENTATION MECHANIC intervention for dysphagia is warranted. ELECTRICAL AND INSTRUMENTATION MECHANIC Frequency: pending GOC decisions made Discussed POC: patient Discussed Risks/Benefits: Yes Patient/Caregiver Agreeable: Yes Short term goals established: Pt/caregiver/family will demonstrate adequate return of knowledge re: dysphagia POC/diet recommendations/safe swallowing guidelines w/ 100% acc to effectively assist the patient in immediate safety with oral intake and swallowing. Start Date: 05/14/2025 End Date: 06/14/2025 Status: Progressing Pt will tolerate least restrictive diet with no overt clinical s/s aspiration 100% of the time. Start Date: 05/14/2025 End Date: 06/14/2025 Status: Not Progressing Education Provided: Results and recommendations per MBSS, with video review; recommendations and POC at this time. Verbal understanding and agreement given on all accounts. Treatment Provided Today: ELECTRICAL AND INSTRUMENTATION MECHANIC provided extensive education and training to pt/pt family regarding anatomy/physiology of swallow function, risk factors of aspiration/aspiration pna & how to mitigate factors, diet modifications, and the use of compensatory swallow strategies to promote pt safety upon PO intake. Additional Medical Consults Suggested: GOC Mechanics of the Swallow Summary: ORAL PHASE: Lip Closure - Intact Tongue Control During Bolus Hold - Intact Bolus prep/mastication - Impaired Bolus transport/lingual motion - Impaired Oral residue - present PHARYNGEAL PHASE: Initiation of pharyngeal swallow - Impaired Soft palate elevation - Intact Laryngeal elevation - Intact Anterior hyoid excursion - Impaired Epiglottic movement - Impaired Laryngeal vestibule closure - Impaired Pharyngeal stripping wave - Intact Pharyngeal contraction (A/P view) - Not tested Pharyngoesophageal segment opening - Impaired Tongue base retraction - Impaired Pharyngeal residue - present ESOPHAGEAL PHASE: Esophageal clearance - Intact *Of note: The A-P bolus follow-through is not intended to be utilized as a diagnostic assessment of the esophagus, rather a tool to observe the biomechanical aspects of the swallow continuum and to inform the need for further evaluation by medical specialists, as applicable. ELECTRICAL AND INSTRUMENTATION MECHANIC Impressions with Severity Rating: Pt awake/alert, consistently cooperative/able to follow commands, and responded appropriately to conversation/questions by ELECTRICAL AND INSTRUMENTATION MECHANIC. Missing dentition noted. Severe oropharyngeal dysphagia. Prolonged mastication of small bites regular solids 2/2 missing dentition. Lingual pumping and piecemeal swallow w/ all consistencies. 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 Impairments most impacting swallow function include delayed pharyngeal swallow initiation, incomplete epiglottic inversion/laryngeal vestibular closure (2/2 ? cervical lordosis), and reduced pharyngeal constriction/UES opening (2/2 ? cervical lordosis). Reduced pharyngeal squeeze/UES opening resulted in significant amount residue remaining in valleculae/pyriforms w/ all consistencies; pt independently swallowed >4x per bolus in effort to achieve oral clearance w/ inconsistent success. With subsequent swallows, incomplete epiglottic inversion/laryngeal vestibular closure resulted in SILENT aspiration of pharyngeal residue w/ ALL liquid consistencies after the swallow. Pt did not sense aspiration and made no independent effort to clear; cued coughs largely unsuccessful in clearing material from airway. Trialed chin tuck w/ mildly (nectar) thick liquids w/ initial success in airway closure; however, eventual SILENT aspiration persisted given incomplete laryngeal vestibular closure. Initial success w/ moderately (honey) thick liquids via straw though eventual aspiration 2/2 delayed pharyngeal swallow initiation. No further trials given 2/2 severity of swallow function. Pt not appropriate for PO diet given severity of swallow function. Recommend NPO w/ frequent aggressive oral care. 10 ice chips per hour allowed w/ nursing for pleasure, safe swallow stimulation, and after oral care to prevent buildup of bacteria within the oropharynx. 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 Given baseline anatomical deficits, suspect pt's swallow rehabilitation prognosis is poor + pt will remain at risk for aspiration regardless of any further evaluation/instrumental assessment. Therefore, question need for ongoing GOC discussions re: accepting risk of aspiration with oral intake. aware. Rosenbek's Penetration Aspiration Scale Thin Liquids: 8. SILENT ASPIRATION - contrast passes glottis, visible residue, NO pt response] After the Swallow Kemmerer Thick Liquids: 8. SILENT ASPIRATION - contrast passes glottis, visible residue, NO pt response] After the Swallow Honey Thick Liquids: 8. SILENT ASPIRATION - contrast passes glottis, visible residue, NO pt response, After the Swallow Puree: 2. PENETRATION that CLEARS - contrast enter airway, above vocal cords, no residue Solids: 1. NO ASPIRATION & NO PENETRATION - no aspiration, contrast does not enter airway documented in this encounter [facility] Work Phone: 05-14-2025 Plan of care note Problem: Skin Goal: Decreased wound size/increased tissue granulation at next dressing change Outcome: Progressing Goal: Participates in plan/prevention/treatment measures Outcome: Progressing Goal: Prevent/manage excess moisture Outcome: Progressing Goal: Prevent/minimize sheer/friction injuries Outcome: Progressing Goal: Promote/optimize nutrition Outcome: Progressing Goal: Promote skin healing Outcome: Progressing Problem: Pain - Adult Goal: Verbalizes/displays adequate comfort level or baseline comfort level Outcome: Progressing Problem: Safety - Adult Goal: Free from fall injury Outcome: Progressing Problem: Discharge Planning Goal: Discharge to home or other facility with appropriate resources Outcome: Progressing Problem: Chronic Conditions and Co-morbidities Goal: Patient's chronic conditions and co-morbidity symptoms are monitored and maintained or improved Outcome: Progressing Problem: Nutrition Goal: Nutrient intake appropriate for maintaining nutritional needs Outcome: Progressing The patient's goals for the shift include The clinical goals for the shift include 0900 [facility] 05-14-2025 Plan of care note The patient's goals for the shift include safety The clinical goals for the shift include pain management Over the shift, the patient did not make progress toward the following goals. Problem: Nutrition Goal: Nutrient intake appropriate for maintaining nutritional needs Outcome: Not Progressing Pt failed MBS, having difficulty making decision on what to do. Spoke with pt on what having an NGT would consist of. Pt also requested provider call and discuss options, RN message trauma provider. Q2 turns, having BM, primofit in place. On IVF. Pt tolerated therapy better today than yesterday per pt and PT. Bed alarm in place, call light within reach, ongoing care [facility] Work Phone: 05-14-2025 Procedure note Associated Ord er(s): ELECTRICAL AND INSTRUMENTATION MECHANIC MODIFIED BARIUM SWALLOW EVALUATION Speech-Language Pathology Inpatient Modified Barium Swallow Study Patient Name: Fawn Campos : 1935 Today's Date: 05/14/25 Start Time: 1300 Stop Time: 1335 Time Calculation (min): 35 Modified Barium Swallow Study completed. Informed verbal consent obtained prior to completion of exam. Trials of thin liquids via tsp/straw, mildly (nectar) thick liquids via tsp/straw, moderately (honey) thick liquids via tsp/straw, purees, and regular solids were given. 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 Respiratory Status: Nasal cannula Current diet: NPO w/ no means of nutrition/hydration Pain: Pain Scale: 0-10 Ratin DIET RECOMMENDATIONS: NPO with frequent aggressive oral care. 10 ice chips/hr allowed for pleasure, safe swallow stimulation, and after oral care to prevent buildup of bacteria within the oropharynx Question need for GOC discussions re: assuming the risk of aspiration w/ continued PO intake ELECTRICAL AND INSTRUMENTATION MECHANIC PLAN: Skilled ELECTRICAL AND INSTRUMENTATION MECHANIC Services: Skilled ELECTRICAL AND INSTRUMENTATION MECHANIC intervention for dysphagia is warranted. ELECTRICAL AND INSTRUMENTATION MECHANIC Frequency: pending GOC decisions made Discussed POC: patient Discussed Risks/Benefits: Yes Patient/Caregiver Agreeable: Yes Short term goals established: Pt/caregiver/family will demonstrate adequate return of knowledge re: dysphagia POC/diet recommendations/safe swallowing guidelines w/ 100% acc to effectively assist the patient in immediate safety with oral intake and swallowing. Start Date: 05/14/2025 End Date: 06/14/2025 Status: Progressing Pt will tolerate least restrictive diet with no overt clinical s/s aspiration 100% of the time. Start Date: 05/14/2025 End Date: 06/14/2025 Status: Not Progressing Education Provided: Results and recommendations per MBSS, with video review; recommendations and POC at this time. Verbal understanding and agreement given on all accounts. Treatment Provided Today: ELECTRICAL AND INSTRUMENTATION MECHANIC provided extensive education and training to pt/pt family regarding anatomy/physiology of swallow function, risk factors of aspiration/aspiration pna & how to mitigate factors, diet modifications, and the use of compensatory swallow strategies to promote pt safety upon PO intake. Additional Medical Consults Suggested: GOC Mechanics of the Swallow Summary: ORAL PHASE: Lip Closure - Intact Tongue Control During Bolus Hold - Intact Bolus prep/mastication - Impaired Bolus transport/lingual motion - Impaired Oral residue - present PHARYNGEAL PHASE: Initiation of pharyngeal swallow - Impaired Soft palate elevation - Intact Laryngeal elevation - Intact Anterior hyoid excursion - Impaired Epiglottic movement - Impaired Laryngeal vestibule closure - Impaired Pharyngeal stripping wave - Intact Pharyngeal contraction (A/P view) - Not tested Pharyngoesophageal segment opening - Impaired Tongue base retraction - Impaired Pharyngeal residue - present ESOPHAGEAL PHASE: Esophageal clearance - Intact *Of note: The A-P bolus follow-through is not intended to be utilized as a diagnostic assessment of the esophagus, rather a tool to observe the biomechanical aspects of the swallow continuum and to inform the need for further evaluation by medical specialists, as applicable. ELECTRICAL AND INSTRUMENTATION MECHANIC Impressions with Severity Rating: Pt awake/alert, consistently cooperative/able to follow commands, and responded appropriately to conversation/questions by ELECTRICAL AND INSTRUMENTATION MECHANIC. Missing dentition noted. Severe oropharyngeal dysphagia. Prolonged mastication of small bites regular solids 2/2 missing dentition. Lingual pumping and piecemeal swallow w/ all consistencies. 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 Impairments most impacting swallow function include delayed pharyngeal swallow initiation, incomplete epiglottic inversion/laryngeal vestibular closure (2/2 ? cervical lordosis), and reduced pharyngeal constriction/UES opening (2/2 ? cervical lordosis). Reduced pharyngeal squeeze/UES opening resulted in significant amount residue remaining in valleculae/pyriforms w/ all consistencies; pt independently swallowed >4x per bolus in effort to achieve oral clearance w/ inconsistent success. With subsequent swallows, incomplete epiglottic inversion/laryngeal vestibular closure resulted in SILENT aspiration of pharyngeal residue w/ ALL liquid consistencies after the swallow. Pt did not sense aspiration and made no independent effort to clear; cued coughs largely unsuccessful in clearing material from airway. Trialed chin tuck w/ mildly (nectar) thick liquids w/ initial success in airway closure; however, eventual SILENT aspiration persisted given incomplete laryngeal vestibular closure. Initial success w/ moderately (honey) thick liquids via straw though eventual aspiration 2/2 delayed pharyngeal swallow initiation. No further trials given 2/2 severity of swallow function. Pt not appropriate for PO diet given severity of swallow function. Recommend NPO w/ frequent aggressive oral care. 10 ice chips per hour allowed w/ nursing for pleasure, safe swallow stimulation, and after oral care to prevent buildup of bacteria within the oropharynx. 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 Given baseline anatomical deficits, suspect pt's swallow rehabilitation prognosis is poor + pt will remain at risk for aspiration regardless of any further evaluation/instrumental assessment. Therefore, question need for ongoing GOC discussions re: accepting risk of aspiration with oral intake. MD aware. Rosenlancek's Penetration Aspiration Scale Thin Liquids: 8. SILENT ASPIRATION - contrast passes glottis, visible residue, NO pt response] After the Swallow Kemmerer Thick Liquids: 8. SILENT ASPIRATION - contrast passes glottis, visible residue, NO pt response] After the Swallow Honey Thick Liquids: 8. SILENT ASPIRATION - contrast passes glottis, visible residue, NO pt response, After the Swallow Puree: 2. PENETRATION that CLEARS - contrast enter airway, above vocal cords, no residue Solids: 1. NO ASPIRATION & NO PENETRATION - no aspiration, contrast does not enter airway [facility] Work Phone: 05-14-2025 Plan of care note The clinical goals for the shift include pts pain ivis remian controlled through shift Problem: Pain - Adult Goal: Verbalizes/displays adequate comfort level or baseline comfort level Outcome: Progressing Problem: Safety - Adult Goal: Free from fall injury Outcome: Progressing [facility] 05-13-2025 Nurse Note Pt was eating dinner and told RN he was having trouble swallowing certain foods and coughed and had to spit them out. RN instructed pt and pts family to no longer eat or drink anything and food/drink moved away from patient. Primary team was notified. [facility] 05-13-2025 Plan of care note Problem: Skin Goal: Decreased wound size/increased tissue granulation at next dressing change Outcome: Progressing Goal: Participates in plan/prevention/treatment measures Outcome: Progressing Goal: Prevent/manage excess moisture Outcome: Progressing Flowsheets (Taken 05/13/2025 165) Prevent/manage excess moisture: Moisturize dry skin Goal: Prevent/minimize sheer/friction injuries Outcome: Progressing Goal: Promote/optimize nutrition Outcome: Progressing Goal: Promote skin healing Outcome: Progressing Problem: Pain - Adult Goal: Verbalizes/displays adequate comfort level or baseline comfort level Outcome: Progressing Problem: Safety - Adult Goal: Free from fall injury Outcome: Progressing Problem: Discharge Planning Goal: Discharge to home or other facility with appropriate resources Outcome: Progressing Problem: Chronic Conditions and Co-morbidities Goal: Patient's chronic conditions and co-morbidity symptoms are monitored and maintained or improved Outcome: Progressing Problem: Nutrition Goal: Nutrient intake appropriate for maintaining nutritional needs Outcome: Progressing The patient's goals for the shift include The clinical goals for the shift include pts pain ivis remian controlled through shift [facility] Work Phone: 05-13-2025 Consult note Associated Order (s): WOUND OSTOMY NURSING CONSULT Images from the original note were not included. Wound Care Consult Visit Date: 05/13/2025 Patient Name: Fawn Campos Reason for Consult: DTI to buttocks, right arm skin tear Assessment: Wound 05/13/25 Pressure Injury Buttock (Active) Date First Assessed/Time First Assessed: 05/13/25 1117 Primary Wound Type: Pressure Injury Location: Buttock Assessments 05/13/2025 11:17 AM Wound Image Site Assessment Non-blanchable erythema;[place] Griselda-Wound Assessment Blanchable erythema Non-staged Wound Description Not applicable Pressure Injury Stage Deep Tissue Wound Length (cm) 0.5 cm Wound Width (cm) 11 cm Wound Surface Area (cm^2) 4.32 cm^2 Wound Depth (cm) 0 cm Wound Volume (cm^3) 0 cm^3 State of Healing Closed wound edges Margins Attached edges Drainage Description None Drainage Amount None Dressing Foam Dressing Changed Reinforced No associated orders. Wound 05/13/25 Traumatic Skin Tear Arm Anterior;Lower;Right (Active) Date First Assessed/Time First Assessed: 05/13/25 1124 Primary Wound Type: Traumatic Secondary Wound Type - Traumatic: Skin Tear Location: Arm Wound Location Orientation: Anterior;Lower;Right Assessments 05/13/2025 11:24 AM Wound Image Site Assessment Red;Beatty Griselda-Wound Assessment Dry Wound Length (cm) 2 cm Wound Width (cm) 1 cm Wound Surface Area (cm^2) 1.57 cm^2 Wound Depth (cm) 0 cm Wound Volume (cm^3) 0 cm^3 State of Healing Early/partial granulation Margins Attached edges Treatments Cleansed;Site care Drainage Description None Drainage Amount None Dressing Foam;Xeroform Dressing Changed New Dressing Status Clean;Dry No associated orders. Buttocks with linear, nonblanchable redness. Per patient and primary RN, pt was in ED for about 48 hrs and recalls some discomfort to the buttocks but was not sure why or what was under him at the time. 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 Area still closed but due to deep tissue pressure injury, expect area to evolve and potentially open up as wound progresses. Right arm with shallow skin tear and scabbing. No bleeding on assessment, cleaned with vashe and gauze, placed xeroform strip and covered with 3 x 3 foam dressing. Wound Plan: Buttocks: clean with bath wipe, treat red area with cavilon, cover with foam dressing. Offload and ensure no lines beneath patient while in bed or in chair. Right arm: clean with vashe and gauze, cover using small xeroform strip, cover with 3 x 3 foam mepilex. Sign off. Please reconsult WOD team for new skin injury. Hayley Chang RN 05/13/2025 4:57 PM [facility] 05-13-2025 Plan of care note The clinical goals for the shift include Patient pain will be managed Problem: Pain - Adult Goal: Verbalizes/displays adequate comfort level or baseline comfort level Outcome: Progressing Problem: Safety - Adult Goal: Free from fall injury Outcome: Progressing [facility] Work Phone: 05-12-2025 Consult note Associated Order (s): Inpatient consult to Geriatric Medicine Inpatient consult to Geriatric Medicine Consult performed by: Robb Rossi DO Consult ordered by: Kristy Giraldo DO Primary Team: Trauma Admit Date: 05/10/2025 Emergency Contact: Extended Emergency Contact Information Primary Emergency Contact: Diya Cameron [address]: 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 male with h/o AAA, infrarenal aneurysm, HTN, HLD, CAD (on ASA) who presents after an unwitnessed fall on Sunday05/09/25. 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 Workup revealed injuries to the R orbital floor, Mild buckled fracture of the RT anterior cranial floor/orbital roof, Small RT (2 mm) subdural hematoma, Trace right frontal subarachnoid hematoma, Bilateral pubic rami fractures with extension into the acetabular wall, Nondisplaced sacral ala fracture on right. Cardiac workup in the ED was negative for MT or arhythmia. Pt has been evaluated by trauma surgery, orthopedic surgery, ENT and ophthalmology and no surgical intervention has been recommended. PT/OT is recommending high-intensity acute rehab on discharge. History per patient: Patient states he was walking into the ambulance bay at [facility] where he suddenly fell and woke up on the ground. He denies preceding dizziness/light headedness, CP, SOB, confusion. He does not recall tripping on anything. He denies recent or recurrent falls. Today, he endorses discomfort associated with his injuries, primarily in his hips, but denies discomfort or pain otherwise. Pt states he is regular with BM's at least once daily but that he has not had a BM since his fall three days ago. History per family/caregiver: (obtained in addition due to patient s) Diya, his and POA, states this has not happened before and that pt has not had any recent or recurrent falls. She does share that he has a lot of chronic and degenerative pain, and that his mobility/speed has slowly declined over the past several years. She states that they are both completely independent for all ADL and IADLs. They live in a multiple story home however all necessities including bedroom and bathroom are on the main floor. Prior to Admission Meds Prior to Admission Medications Prescriptions Last Dose Informant Patient Reported? Taking? alfuzosin (Uroxatral) 10 mg 24 hr tablet 05/09/2025 Bedtime Self No Yes Sig: TAKE 1 TABLET BY MOUTH ONCE DAILY DO NOT CRUSH, CHEW, OR SPLIT amLODIPine (Norvasc) 5 mg tablet 05/10/2025 Morning Self No Yes Sig: Take 1 tablet (5 mg) by mouth once daily. amitriptyline (Elavil) 10 mg tablet 05/09/2025 Bedtime Self No Yes Sig: Take 1 tablet (10 mg) by mouth once daily at bedtime. aspirin 81 mg EC tablet 05/10/2025 Morning Self Yes Yes Sig: Take 1 tablet (81 mg) by mouth once daily. benazepril (Lotensin) 40 mg tablet 05/10/2025 Morning Self No Yes Sig: Take 1 tablet (40 mg) by mouth once daily. escitalopram (Lexapro) 5 mg tablet 05/10/2025 Morning Self No Yes Sig: Take 1 tablet (5 mg) by mouth once daily. folic acid (Folvite) 1 mg tablet 05/10/2025 Morning Self No Yes Sig: Take 2 tablets (2 mg) by mouth once daily. methotrexate (Trexall) 2.5 mg tablet 05/10/2025 Morning Self Yes Yes Sig: Take 8 tablets (20 mg total) by mouth 1 (one) time per week. On Sundays metoprolol tartrate (Lopressor) 25 mg tablet 05/10/2025 Morning Self No Yes Sig: Take 1 tablet (25 mg) by mouth 2 times a day. omeprazole (PriLOSEC) [address] capsule 05/09/2025 Bedtime Self No Yes Sig: Take 1 capsule (40 mg) by mouth once daily in the morning. Take before meals. pravastatin (Pravachol) 40 mg tablet 05/09/2025 Bedtime Self No Yes Sig: Take 1 tablet (40 mg) by mouth once daily at bedtime. predniSONE (Deltasone) 10 mg tablet Unknown Self No Yes Sig: Take 1 Tablet Oral one time daily as needed. Take for 3 to 5 days with a flare. vit A/vit C/vit E/zinc/copper (PRESERVISION AREDS ORAL) 05/10/2025 Morning Self Yes Yes Sig: Take 1 tablet by mouth 2 times a day. Facility-Administered Medications: None Current Meds in Hospital Current Medications[1] The patient's outpatient electronic medical record (EMR) is reviewed, notable information includes being on four different blood pressure lowering medications and two anti-cholinergic medications. Past Medical History Medical History[2] Surgical History Surgical History[3] Family History His family history includes Arthritis in his mother; CARDIAC DISORDER in his father; Hearing loss in his mother; Hearing loss (age of onset: 70 - 79) in his father; Heart murmur in his mother; Hyperlipidemia in his mother; Hypertension in his mother; Pneumonia in his father; Stroke in his father; Suicide Attempts in his brother; Vision loss in his mother. Social History He reports that he quit smoking about 63 years ago. His smoking use included cigarettes and pipe. He has been exposed to tobacco smoke. He has never used smokeless tobacco. He reports that he does not currently use alcohol. He reports that he does not use drugs. 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 Highest Level of Education: Post-Graduate Degree Masters Community Resources: none [place]: No Current living environment: home w/ , multi-floor home but only stays on main floor Activities of Daily Living: Basic ADLs: (I= independent, A= assistance, D= dependent) Bathing: I, Dressing: I, Toileting: I, Transferring: I, Continence: I, Feeding: I Adamson Index: 6 Instrumental ADLs: (I= independent, A= assistance, D= dependent) Ability to use phone: I, Shopping: I, Cooking: I, Housekeeping: I, Laundry: I, Transportation: I, Medications: I, Handle Finances: I Jan Scale: 8 Allergies Patient has no known allergies. Review of Systems Review of System: Constitutional: -Night sweats/fever: no -Weight change: no Integumentary: no Ears, Nose, Throat: -Hearing loss: mild, has hearing aids Eyes: -Vision loss: no Cardiovascular: -Chest Pain: no -Orthopnea: no -Paroxysmal nocturnal dyspnea: no -Edema: no Respiratory: -Dyspnea: no -Wheezing: no Gastrointestinal: -Appetite: good -Difficulty chewing/ swallowing: chokes when drinking water, not with food -Heartburn: no -Bowels: regular Genitourinary: -Incontinence: no -Nocturia: 1x/night Musculoskeletal: -Mobility: poor -Pain: poor Neurological: -Confusion: no -Falls: x1 -Gait: poor -Memory: normal -Tremor: no Psychiatric: -Mood: good -Sleep: good Documents on file and valid: Advance Directive/Living Will: Yes Health Care Power of Title Attorney: Yes Code Status: Full Code Confusion Assessment Method (CAM) Not on file. Fabrice Cognitive Assessment (MoCA) Not on file. Geriatric Depression Scale (GDS) Not on file. Mini-Cog (Early Dementia Detection) Not on file. Folstein Mini-Mental State Exam (MMSE) Not on file. Patient Health Questionnaire (PHQ-9) Not on file. Last Recorded Vitals 05/12/2025 1:00 AM 05/12/2025 2:00 AM 05/12/2025 3:00 AM 05/12/2025 4:00 AM 05/12/2025 5:00 AM 05/12/2025 6:00 AM 05/12/2025 8:00 AM Vitals Systolic 116 114 126 123 110 127 111 Diastolic 60 60 63 63 63 63 78 BP Location Right arm Right arm Right arm Right arm Right arm Right arm Right arm Heart Rate 71 72 82 79 75 78 77 Temp 36.7 C (98.1 F) Resp 15 14 16 13 16 16 18 Vitals: 05/10/25 2157 Weight: 66.2 kg (146 lb) Confusion Assessment Method(CAM) for diagnosis of delirium: 1. Acute onset or fluctuating course: absent/present: Absent 2. Inattention: absent/present: Absent 3. Disorganized thinking: absent/present: Absent 4. Altered level of consciousness: absent/present: Absent CAM: negative AT Score For Assessment of Delirium and Cognitive Impairment: Alertness: 0 Normal(fully alert,but not agitated, throughout assessment)=0 Mild sleepiness for <10 seconds after walking, then normal=0 Clearly abnormal=4 2. AMT4: 0 No mistakes=0 One mistake=1 Two or more mistakes/untestable=2 3. Attention: 0 Achieves seven months or more correctly=0 Starts but scores <7 months/ refuses to start=1 Untestable(cannot start because unwell, drowsy, inattentive)=2 4. Acute: 0 No=0 Yes=4 Total Score: 0 4 or above: Possible delirium +/- cognitive impairment 1-3: Possible cognitive impairment 0: Delirium or severe cognitive impairment unlikely(but delirium still possible if (4) information incomplete) Exam Constitutional: Appearance: Normal appearance. HENT: Head: Normocephalic. Comments: 3 cm lacerations just above the right brow with [address] face and head otherwise atraumatic, midface stable, no malocclusion Eyes: Extraocular Movements: Extraocular movements intact. Pupils: Pupils are equal, round, and reactive to light. Cardiovascular: Rate and Rhythm: Normal rate and regular rhythm. Pulmonary: Effort: No respiratory distress. Abdominal: General: There is no distension. Palpations: Abdomen is soft. Tenderness: There is no abdominal tenderness. Musculoskeletal: Cervical back: Normal range of motion. Comments: Range of motion decreased bilateral hips due to pain, muscle strength 5/5 bilateral upper and lower extremities Skin: General: Skin is warm. Capillary Refill: Capillary refill takes less than 2 seconds. Comments: Skin tears present on the dorsal right hand/knuckles and forearm without any active bleeding, wrapped with gauze; bilateral forearm ecchymoses Relevant Results Lab Results Component Value Date TSH 2.99 09/01/2024 [id number] 314 11/20/2024 Results from last 7 days Lab Units 05/11/25 0431 05/10/25 1422 WBC AUTO x10*3/uL 10.7 10.7 HEMOGLOBIN g/dL 11.4* 12.3* HEMATOCRIT % 32.9* 36.3* SODIUM mmol/L 139 138 POTASSIUM mmol/L 3.6 3.9 CHLORIDE mmol/L 104 106 CREATININE mg/dL 0.89 0.77 BUN mg/dL 21 26* CO2 mmol/L 30 26 INR -- 1.1 Recent Imaging Results XR cervical spine 2-3 views Result Date: 05/09/2025 Impression: 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 MACRO: None Signed by: Clement Estevez 05/09/2025 8:28 AM Dictation workstation: [id number] ECG 12 lead Normal sinus rhythm Normal ECG When compared with ECG of 07-DEC-2023 09:54, Premature atrial complexes are no longer Present See ED provider note for full interpretation and clinical correlation Confirmed by Brandee Hawkins ([id number]) on 05/11/2025 1:16:43 PM XR pelvis With [place] views Narrative: Interpreted By: Wanda Montalvo, and Spenser Jenkins STUDY: XR PELVIS WITH INLET OUTLET JUDET VIEWS; ; 05/11/2025 4:18 am INDICATION: Signs/Symptoms:eval. COMPARISON: CT chest abdomen pelvis 05/10/2025. ACCESSION NUMBER(S): [id number] ORDERING CLINICIAN: LEONARDO BERGER FINDINGS: Five view radiographs of the pelvis were performed. Generalized diffuse osteopenia. 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 Fractures of the right superior and inferior pubic rami are noted, better visualized on prior CT. Acute bilateral acetabular and right sacral alar fractures are better appreciated on comparison CT chest abdomen pelvis. Status post left hip arthroplasty. No perihardware lucency to suggest loosening. Degenerative changes of the lower lumbar spine, SI joints and symphysis pubis. Radiopaque contrast within the bladder. Vascular calcifications noted. Impression: Acute pubic rami, acetabular, and right sacral ala fractures are better appreciated on comparison CT chest abdomen pelvis. Please refer to separate report of dedicated CT for detail. Postsurgical and degenerative changes as noted above. I personally reviewed the images/study and I agree with the findings as stated by Gregory Dueñas MD (PGY-3). This study was interpreted at [place], [place]. MACRO: None Signed by: Wanda Montalvo 05/11/2025 5:01 AM Dictation workstation: [id number] XR chest 1 view Narrative: STUDY: Chest Radiograph; 05/11/2025 1:13AM INDICATION: Evaluation for surgery trauma. COMPARISON: 09/23/2022 XR chest ACCESSION NUMBER(S): [id number] ORDERING CLINICIAN: SANTIAGO MENENDEZ TECHNIQUE: Frontal chest was obtained at 01:12 hours. FINDINGS: CARDIOMEDIASTINAL SILHOUETTE: Cardiomediastinal silhouette is normal in size and configuration. Mural calcifications through the aortic arch. LUNGS: No regions of consolidation. No regions of atelectasis. ABDOMEN: No remarkable upper abdominal findings. BONES: No acute osseous changes. Impression: No acute pleural or parenchymal disease.. Signed by Isidoro Baltazar MD ECG 12 lead Normal sinus rhythm Normal ECG When compared with ECG of 10-MAY-2025 13:54, No significant change was found See ED provider note for full interpretation and clinical correlation Confirmed by Yolanda Garcia ([id number]) on 05/11/2025 3:47:[address] head wo IV contrast Narrative: Interpreted By: Wanda Montalvo and Omar Mahmoud STUDY: CT HEAD WO IV CONTRAST; 05/10/2025 11:27 pm INDICATION: Signs/Symptoms:Trauma, intracranial bleeding. Stability scan. COMPARISON: CT head without IV contrast 05/10/2025 3:03 p.m.. ACCESSION NUMBER(S): [id number] ORDERING CLINICIAN: CARRI GREER TECHNIQUE: Noncontrast axial CT scan of head was performed. Angled reformats in brain and bone windows were generated. The images were reviewed in bone, brain, blood and soft tissue windows. FINDINGS: CSF Spaces: The ventricles, sulci and basal cisterns are within normal limits. Similar size and appearance of extra-axial hemorrhage along the anterolateral right frontal lobe (series 204, image 49) currently measuring 3 mm in thickness (series 206, image 39), previously measuring 2 mm. Parenchyma: There is mild periventricular and subcortical white matter hypodensities, similar as compared to prior and likely represents sequela of chronic microvascular ischemic changes. No new loss of callaway-white differentiation. There is no mass effect or midline shift. Several linear foci of hyperattenuation noted along the sulci right parietal lobe suspicious for subarachnoid hemorrhage. A subtle hyperdense focus is redemonstrated along the left frontal lobe as seen on axial image 60 of series 204. This is suspicious for small focus of extra-axial hemorrhage. No new hemorrhage is identified. Calvarium: Redemonstrated minimally displaced acute fracture of the right orbital roof (series 206 image 40). Soft tissue laceration right frontal scalp extending to the zygoma. Paranasal sinuses and mastoids: Visualized paranasal sinuses and mastoids are clear. Atherosclerotic calcification of the carotid siphons and vertebral arteries Impression: Redemonstration of minimally displaced acute fracture of the right orbital roof with stable extra-axial hemorrhage along the anterolateral right frontal lobe. Additional linear hyperdense foci along the sulci right parietal lobe suspicious for subarachnoid hemorrhage. No new hemorrhage is identified. Question subtle hyperdense focus along the left frontal lobe opacity described above may relate to small focus of extra-axial hemorrhage. Attention on continued follow-up is advised. I personally reviewed the images/study and I agree with the findings as stated by Gregory Dueñas MD (PGY-3). This study was interpreted at [place], [place]. MACRO: None Signed by: Wanda Montalvo 05/11/2025 12:03 AM Dictation workstation: [id number] Head/Brain Imaging === Results for orders placed during the hospital encounter of 05/10/25 === CT head wo IV contrast [[id number]] 05/10/2025 Status: Normal Redemonstration of minimally displaced acute fracture of the right orbital roof with stable extra-axial hemorrhage along the anterolateral right frontal lobe. Additional linear hyperdense foci along the sulci right parietal lobe suspicious for subarachnoid hemorrhage. No new hemorrhage is identified. Question subtle hyperdense focus along the left frontal lobe opacity described above may relate to small focus of extra-axial hemorrhage. Attention on continued follow-up is advised. I personally reviewed the images/study and I agree with the findings as stated by Gregory Dueñas MD (PGY-3). This study was interpreted at [place], [place]. MACRO: None Signed by: Wanda Montalvo 05/11/2025 12:03 AM Dictation workstation: [id number] No results found for this or any previous visit. DATA: EKG: QTC Encounter Date: 05/10/25 ECG 12 lead Result Value Ventricular Rate 72 Atrial Rate 72 [place] Interval 190 QRS Duration 104 QT Interval 394 QTC Calculation(Bazett) 431 P [place] 31 R [place] -15 T [place] 44 QRS Count 12 Q Onset 210 P Onset 115 P Offset 178 T Offset 407 QTC [place] 418 Narrative Normal sinus rhythm Normal ECG When compared with ECG of 10-MAY-2025 13:54, No significant change was found See ED provider note for full interpretation and clinical correlation Confirmed by Yolanda Garcia ([id number]) on 05/11/2025 3:47:31 AM Anti-psychotics in 48 hours: Opioids/Benzodiazepines in 48 hours: Anticholinergics on board:No Restraints:No Indwelling catheters:Yes - can't get up Last BM: 3 days UO in 24 hours: not documented Activity in the past 24 hours: n/a Need for ambulatory devices: Assessment/Plan This is a/an 89 y.o. year old male, with past medical history relevant for AAA, infrarenal aneurysm, HTN, HLD, CAD (on ASA) presented after an unwitnessed fall, found to have injuries to the R orbital floor, Mild buckled fracture of the RT anterior cranial floor/orbital roof, Small RT (2 mm) subdural hematoma, Trace right frontal subarachnoid hematoma, Bilateral pubic rami fractures with extension into the acetabular wall, Nondisplaced sacral ala fracture on right. Geriatrics was consulted due to advanced age falls. Assessment & Plan Fall, initial encounter Fall - cause unclear; orthostasis vs. Arhythmia vs. Autonomia vs. Polypharmacy - EKG/trops negative on admission, QTC 431 - Lipid panel normal, no A1c, TSH 8mo ago normal, b12 7mo normal - vit d pending - Hx of being on alendronate, no evidence of osteoporosis/ DEXA - recommend orthostats; lying and sitting only 2. Polypharmacy - on several peripheral vasodilators that can cause orthostasis and hypotension (alfuzosin, amlodipine, benazepril, metoprolol) - amitryptyline and alfuzosin are anticholinergic and can cause sedation/ weakness/ hypotension - alfuzosin, amlodipine, benazepril and amitryptyline have been held since admission; continue to hold and DO NOT resume on discharge 3. HTN - alfuzosin, amlodipine, benazepril have been held since admission; continue to hold and DO NOT resume on discharge - BP has been stable - do NOT resume on discharge Care Transitions: -Recommended level for discharge: acute rehab -Home going considerations: lives alone with -Primary care physician: Don Barrear MD Goals of Care: -Health care power of deputy attorney general: Diya () -Living will: present Code status: FULL CODE Geriatric medicine will continue to follow the patient. Thank you for allowing geriatric medicine to be involved in the care of your patient. Geriatric medicine consultation team is available during work hours Sunday through Sunday. For any emergency issues requiring immediate assistance over the weekend, please page Geriatrics pager [phone] Consult Billing Time Prep time on date of patient encounter(minutes): Time directly with patient/family/caregiver(minutes ): Documentation time(minutes): TOTAL TIME(minutes): Robb Rossi DO PGY3 Family Medicine [1] Current Facility-Administered Medications Medication Dose Route Frequency Provider Last Rate Last Admin acetaminophen (Tylenol) tablet 650 mg 650 mg oral q6h KIKA Daryl Dickson 650 mg at 05/12/25 0616 levETIRAcetam (Keppra) tablet 500 mg 500 mg oral BID February Evelyn Granda MD 500 mg at 05/11/250 metoprolol tartrate (Lopressor) tablet 12.5 mg 12.5 mg oral BID February Evelyn Granda MD 12.5 mg at 05/11/25 214 ondansetron (Zofran) tablet 4 mg 4 mg oral q8h PRN Daryl Dickson Or ondansetron (Zofran) injection 4 mg 4 mg intravenous q8h PRN Daryl Dickson oxyCODONE (Roxicodone) immediate release tablet 2.5 mg 2.5 mg oral q6h PRN Daryl Dickson 2.5 mg at 05/11/25 1849 oxyCODONE (Roxicodone) immediate release tablet 5 mg 5 mg oral q4h PRN Daryl Dickson 5 mg at 05/12/25 0615 oxygen (O2) therapy inhalation Continuous PRN - O2/gases Daryl Dickson oxymetazoline (Afrin) 0.05 % nasal spray 2 spray 2 spray Each Nostril q12h PRN Daryl Dickson pantoprazole (ProtoNix) EC tablet 40 mg 40 mg oral Daily before breakfast Daryl Dickson 40 mg at 05/12/25 0616 polyethylene glycol (Glycolax, Miralax) packet 17 g 17 g oral Daily Daryl Dickson pravastatin (Pravachol) tablet 40 mg 40 mg oral Nightly February Evelyn Granda MD 40 mg at 05/11/25 2140 Current Outpatient Medications Medication Sig Dispense Refill alfuzosin (Uroxatral) 10 mg 24 hr tablet TAKE 1 TABLET BY MOUTH ONCE DAILY DO NOT CRUSH, CHEW, OR SPLIT 90 tablet 3 amitriptyline (Elavil) 10 mg tablet Take 1 tablet (10 mg) by mouth once daily at bedtime. 90 tablet 3 amLODIPine (Norvasc) 5 mg tablet Take 1 tablet (5 mg) by mouth once daily. 90 tablet 3 aspirin 81 mg EC tablet Take 1 tablet (81 mg) by mouth once daily. benazepril (Lotensin) 40 mg tablet Take 1 tablet (40 mg) by mouth once daily. 90 tablet 3 escitalopram (Lexapro) 5 mg tablet Take 1 tablet (5 mg) by mouth once daily. 90 tablet 3 folic acid (Folvite) 1 mg tablet Take 2 tablets (2 mg) by mouth once daily. 180 tablet 3 methotrexate (Trexall) 2.5 mg tablet Take 8 tablets (20 mg total) by mouth 1 (one) time per week. On Sundays metoprolol tartrate (Lopressor) 25 mg tablet Take 1 tablet (25 mg) by mouth 2 times a day. 180 tablet 3 omeprazole (PriLOSEC) [address] capsule Take 1 capsule (40 mg) by mouth once daily in the morning. Take before meals. 90 capsule 3 pravastatin (Pravachol) 40 mg tablet Take 1 tablet (40 mg) by mouth once daily at bedtime. 90 tablet 3 predniSONE (Deltasone) 10 mg tablet Take 1 Tablet Oral one time daily as needed. Take for 3 to 5 days with a flare. 30 tablet 0 vit A/vit C/vit E/zinc/copper (PRESERVISION AREDS ORAL) Take 1 tablet by mouth 2 times a day. [2] Past Medical History: Diagnosis Date Arthritis 10 years Callus of foot 05/03/2023 Cataract 20 years GERD (gastroesophageal reflux disease) 6 years HL (hearing loss) 5 years ago Hypertension 20 years ago Personal history of other diseases of the nervous system and sense organs History of cataract Unspecified visual disturbance Visual aura [3] Past Surgical History: Procedure Laterality Date CARDIAC CATHETERIZATION 2009 CATARACT EXTRACTION 04/12/2017 Cataract Surgery CIRCUMCISION, PRIMARY 89 years ago COLONOSCOPY 04/12/2017 Colonoscopy (Fiberoptic) HERNIA REPAIR 04/12/2017 Inguinal Hernia Repair JOINT REPLACEMENT 2016 OTHER SURGICAL HISTORY 04/12/2017 History Of Prior Surgery OTHER SURGICAL HISTORY 04/26/2022 Skin biopsy OTHER SURGICAL HISTORY 08/30/2021 Shoulder surgery OTHER SURGICAL HISTORY 08/30/2021 Hip replacement TONSILLECTOMY 04/12/2017 Tonsillectomy With Adenoidectomy VASECTOMY 40 years ago WISDOM TOOTH EXTRACTION Cosigned by Zahira Douglas MD at 05/13/2025 8:15 AM EDT Associated attestation - Zahira Douglas MD - 05/13/2025 8:15 AM EDT I saw and evaluated the patient. I personally obtained the de jesus and critical portions of the history and physical exam or was physically present for de jesus and critical portions performed by the resident. I reviewed the resident s documentation and discussed the patient with the resident. I agree with the resident s medical decision making as documented in their note with the exception/addition of the following: Patient was seen and examined. His pain appeared fairly controlled. He was on 2L oxygen, suspect atelectasis. Recommend aggressive use of incentive spirometer. Patient with history of ?osteoporosis, was on alendronate in the past. Recommend DEXA scan in the outpatient Will need Vitamin D level checked in this hospital; stay. Zahira Douglas MD [facility] Work Phone: 05-12-2025 Hospital Note Formatting of t his note might be different from the original. 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 Patient was found to have right orbital floor and roof fracture, small right subdural hematoma and trace frontal/parietal subarachnoid hematoma, bilateral pubic rami fractures and a sacral ala fracture that is nondisplaced on the right. All fractures have been managed nonoperatively. The patient was given an ambulation trial for his pubic rami fractures. Repeat CT head demonstrated stable presentation of the brain bleeds. Patient is to continue Keppra 500 mg twice daily for 7 days total. He is okay to restart his ASA 81 mg on 05/17. Regarding his orbital floor and rib fractures, ENT was consulted which recommended nonoperative management, however the patient will continue sinus precautions. He will have follow-up visits with ENT and ophthalmology upon discharge. The patient was evaluated by geriatrics pending recommendations. The patient also has been evaluated by PT/OT and has been recommended SNF placement. [facility] Work Phone: 05-11-2025 television station manager Note Neurosurgery Sign-off and Final Recommendations All imaging and clinical information reviewed as neurosurgical team and significant for: - 05/10 CTH/face R nondisplaced orbital fx, trace R frontal SDH - 05/10 rCTH stable At this time, no further inpatient neurosurgical care is needed. Final recommendations as follows: Okay to restart aspirin on post bleed day 7 (05/17) Keppra 500 BID for 1 week after discharge 2. No neurosurgical follow-up visit needed Please do not hesitate to reach out with further questions or concerns about this patient's neurosurgical care. Iraj Avery MD PGY-1, Department of Neurosurgery [facility] 8:58 AM [facility] Work Phone: 05-11-2025 Consult note Formatting of th is note is different from the original. ORTHOPAEDIC SURGERY CONSULT NOTE HPI: Orthopaedic Problems/Injuries: R LC1 pelvic ring injury Other Injuries: facial fxs, SDH, tSAH, 89M (s/p L GABO 10y ago at OSH, s/p L rTSA 6y ago at OSH, CAD, TIA, AAA, GERD) p/a mGLF sustaining above. Denies numbness, tingling, and open wounds on the affected limb. PMH: per HPI/EMR PSH: per HPI/EMR SocHx: Denies alcohol, tobacco, or illicit drug use Ambulatory Status: Community ambulator without assistive devices FamHx: Non-contributory to this patient's acute orthopaedic problem other than as mentioned in HPI Allergies: Allergies Reviewed by Gauri Stiles RN on 05/10/2025 No Known Allergies Medications: Denies home anticoagulation use Current Outpatient Medications Medication Instructions alfuzosin (UROXATRAL) 10 mg, oral, Daily, DO NOT CRUSH CHEW OR SPLIT amitriptyline (ELAVIL) 10 mg, oral, Nightly amLODIPine (NORVASC) 5 mg, oral, Daily aspirin 81 mg, oral, Daily benazepril (LOTENSIN) 40 mg, oral, Daily escitalopram (LEXAPRO) 5 mg, oral, Daily folic acid (FOLVITE) 2 mg, oral, Daily methotrexate (Trexall) 2.5 mg tablet 8 tablets, oral, Once Weekly, On Sundays metoprolol tartrate (LOPRESSOR) 25 mg, oral, 2 times daily omeprazole (PRILOSEC) 40 mg, oral, Daily before breakfast pravastatin (PRAVACHOL) 40 mg, oral, Nightly predniSONE (Deltasone) 10 mg tablet Take 1 Tablet Oral one time daily as needed. Take for 3 to 5 days with a flare. vit A/vit C/vit E/zinc/copper (PRESERVISION AREDS ORAL) 1 tablet, 2 times daily ROS: 14 point ROS negative except as above OBJECTIVE: BP 99/54 Pulse 70 Temp 36.3 C (97.3 F) (Temporal) Resp 10 Ht 1.676 m (5' 6) Wt 66.2 kg (146 lb) SpO2 95% BMI 23.57 kg/m PHYSICAL EXAM Gen: NAD HEENT: normocephalic atraumatic Psych: appropriate mood and affect Resp: nonlabored breathing Cardiac: extremities WWP Neuro: alert and oriented Skin: no rashes MSK: Left Lower Extremity: -Skin in tact -Tender at the site of injury -Fires EHL/TA/Gastroc -SILT in sural, saphenous, superficial/deep peroneal, tibial nerve distributions -Foot warm, well perfused -Palpable DP pulse -Compartments soft and compressible Right Lower Extremity: -Skin in tact -Tender at the site of injury -Fires EHL/TA/Gastroc -SILT in sural, saphenous, superficial/deep peroneal, tibial nerve distributions -Foot warm, well perfused -Palpable DP pulse -Compartments soft and compressible A full secondary exam was performed and all relevant findings discussed and noted above. IMAGING: X- and advanced imaging reveal the following injuries: - XR/CT w bilateral SPR/IPR fxs, R anterior buckle sacral fx. ASSESSMENT: Orthopaedic Problems/Injuries: - R LC1 pelvic ring injury 89M (s/p L GABO 10y ago at OSH, s/p L rTSA 6y ago at OSH, CAD, TIA, AAA, GERD) p/a mGLF. Also w facial fxs, tSAH, SDH. Closed, NVI. Ambulatory wo assistive devices at baseline. XR/CT w bilateral SPR/IPR fxs, R anterior buckle sacral fx PLAN: - No acute orthopaedic intervention - Recommend trial of nonoperative management,/trial of ambulation with PT OT. - Weight bearing status: WBAT BLLE - Antibiotics: Per primary, none indicated from an orthopedic perspective - Analgesia per ED/Primary - F/U with Dr. Kristy Ramos in 2 weeks. Call [phone] to schedule appointment. - Please don't hesitate to page with questions DISPOSITION: Per primary, pending trial of ambulation This patient was staffed with the attending physician, Dr. Kristy Resendiz MD Orthopedic Surgery PGY-2 [facility] While admitted, this patient will be followed by the Orthopedic Trauma Team. Please contact the residents listed below with any questions. For urgent matters at any time, or for any needs between 6 PM and 6 AM Sunday through Sunday, on weekends, or on holidays, please page [place] [phone]. Trauma: First Call: Antonio Guzman, PGY-1/Heike Arzate PGY-1 Second Call: Sally Cutler, PGY-2 Third Call: Chente Ricci, PGY-3 Cosigned by Kritsy Ramos MD at 05/11/2025 1:07 PM EDT [facility] Work Phone: 05-10-2025 Consult note Associated Order (s): IP CONSULT TO ENT ENT DEPARTMENT CONSULTATION NOTE Name: Fawn Cameron : 1935 Consulting Attending: Carri Greer MD;Leonardo* Reason for Consult: Orbital roof fracture Patient History of Present Illness 89 y.o. male presented to [facility] on 05/10 after sustaining injuries from a ground level fall which took place while walking into the hospital. On secondary survey significant head and neck injuries included R orbital roof fracture (non-displaced) and possible R orbital floor fracture (non-displaced with minimal herniation of adjacent orbital fat), which was appreciated on CT maxillofacial bones ENT is consulted for further management of facial trauma. Other injuries include: 2 mm SDH, pelvic fractures Past Medical History Medical History[1] Past Surgical History Surgical History[2] Family History Family History[3] Social History Social History Tobacco Use Smoking status: Former Current packs/day: 0.00 Types: Cigarettes, Pipe Quit date: 04/22/1962 Years since quittin.0 Passive exposure: Past Smokeless tobacco: Never Substance Use Topics Alcohol use: Not Currently Medications Scheduled Medications[4] Current Medications[5] Allergies Allergies[6] Physical Exam BP 135/68 Pulse 89 Temp 36.3 C (97.3 F) (Temporal) Resp 13 Ht 1.676 m (5' 6) Wt 66.2 kg (146 lb) SpO2 97% BMI 23.57 kg/m Gen: AOx3, NAD, breathing comfortably on RA CV: pulses equal bilaterally, no tachycardia Chest: symmetric chest rise, no increased work of breathing Neuro: CNNs III, V, and VII grossly intact and symmetric bilaterally Head: symmetric, no lesions/masses appreciated, no lacerations to scalp Face: R lateral brow facial lacerations repaired with non-dissolvable, simple interrupted sutures, maxilla stable without rocking motion, no palpable stepoffs along bilateral orbital rims, maxilla, nasal bones, or mandible Eyes: EOMI, PERRL, no scleral icterus, mild R sided periorbital edema/ecchymoses, intraocular distance appropriate, no deviation or limitation of gaze or appreciable entrapment Ears: R - auricle normal, L - auricle normal, No external lacerations. No postauricular ecchymoses. Nose: vestibules clear, anterior nares clear, inferior turbinates not engorged bilaterally, no septal hematoma visible or palpable OC/OP: no masses/lesions identified on visual and bimanual exam, OP clear without drainage or erythema, class 1 occlusion, no intraoral lacerations, no trismus Neck: flat, symmetric, no thyromegaly, no masses/lesions, no LAD appreciated, no external lacerations Voice: clear and strong, normal volume and projection, no breathiness or increased voicing effort Relevant Labs @CBC@ @BMP@ No intake or output data in the 24 hours ending 05/10/25 2349 @INR@ Imaging: I have personally reviewed the CT maxillofacial bones dated 05/10 which demonstrates: -Fracture of the R orbital roof with trace overlying subdural hematoma, possible R orbital floor fracture with minimal displacement of orbital fat on imaging, no notable injuries or hematoma to the extraocular muscles, no other facial bone fractures appreciated Procedures: No procedures performed Assessment and Plan Mr. Cameron is a 89 y.o. male who ENT is consulted for management of Orbital fractures. Clinical examination as well as ancillary testing is most consistent with diagnosis of R orbital roof fracture and possible orbital floor fracture. Both are non-displaced and non-operative from ENT standpoint. Neurosurgery already onboard due to trace SDH noted in the anterior skull base. Per ophthalmology evaluation, no concerns for entrapment, globe compromise, or retro-orbital hematoma Recommendations - No acute ENT intervention at this time - Recommend Sinus precautions as documented below - Patient can follow-up in 2-3 weeks with ENT for re-evaluation - Thank you for involving us in the care of this patient. Please reach out if there are any questions or concerns. SINUS PRECAUTIONS FOR 2 WEEKS Do not blow your nose or breathing in strongly through your nose; you may wipe your nose gently. Recommend head of bed elevation when sleeping Do not sneeze with mouth closed (have lips/mouth open while sneezing). Avoid straining with exertion, heavy lifting, or straining during bowel movements Do not drink through a straw or smoke. You may use saline nasal spray ([place]) and Afrin as needed for congestion and bleeding. If using Afrin please take as permitted on the bottle (for every 3 days of use you must take a 1 day holiday before using it again). Note not final until signed by an attending. Riaz Carrillo MD - PGY2 Otolaryngology - Head and Neck Surgery Head & Neck team phone: [phone] ENT consult pager: [phone] Pediatric ENT pager: [phone] ENT Outpatient scheduling number: [phone] [1] Past Medical History: Diagnosis Date Arthritis 10 years Callus of foot 05/03/2023 Cataract 20 years GERD (gastroesophageal reflux disease) 6 years HL (hearing loss) 5 years ago Hypertension 20 years ago Personal history of other diseases of the nervous system and sense organs History of cataract Unspecified visual disturbance Visual aura [2] Past Surgical History: Procedure Laterality Date CARDIAC CATHETERIZATION 2009 CATARACT EXTRACTION 04/12/2017 Cataract Surgery CIRCUMCISION, PRIMARY 88 years ago COLONOSCOPY 04/12/2017 Colonoscopy (Fiberoptic) HERNIA REPAIR 04/12/2017 Inguinal Hernia Repair JOINT REPLACEMENT 2015 OTHER SURGICAL HISTORY 04/12/2017 History Of Prior Surgery OTHER SURGICAL HISTORY 04/26/2022 Skin biopsy OTHER SURGICAL HISTORY 08/30/2021 Shoulder surgery OTHER SURGICAL HISTORY 08/30/2021 Hip replacement TONSILLECTOMY 04/12/2017 Tonsillectomy With Adenoidectomy VASECTOMY 40 years ago WISDOM TOOTH EXTRACTION [3] Family History Problem Relation Name Age of Onset Heart murmur Mother Adena Obrecht Hyperlipidemia Mother Adena Obrecht Arthritis Mother Adena Obrecht Hearing loss Mother Adena Obrecht Hypertension Mother Adena Obrecht Vision loss Mother Adena Obrecht Other (CARDIAC DISORDER) Father Pneumonia Father Suicide Attempts Brother Heath Stroke Father Hearing loss Father 70 - 79 [4] ampicillin-sulbactam, 3 g, intravenous, q6h [5] Current Facility-Administered Medications: ampicillin-sulbactam (Unasyn) 3 g in sodium chloride 0.9% IV 100 mL, 3 g, intravenous, q6h, Carri Greer MD Current Outpatient Medications: alfuzosin (Uroxatral) 10 mg 24 hr tablet, TAKE 1 TABLET BY MOUTH ONCE DAILY DO NOT CRUSH, CHEW, OR SPLIT, Disp: 90 tablet, Rfl: 3 amitriptyline (Elavil) 10 mg tablet, Take 1 tablet (10 mg) by mouth once daily at bedtime., Disp: 90 tablet, Rfl: 3 amLODIPine (Norvasc) 5 mg tablet, Take 1 tablet (5 mg) by mouth once daily., Disp: 90 tablet, Rfl: 3 aspirin 81 mg EC tablet, Take 1 tablet (81 mg) by mouth once daily., Disp: , Rfl: benazepril (Lotensin) 40 mg tablet, Take 1 tablet (40 mg) by mouth once daily., Disp: 90 tablet, Rfl: 3 escitalopram (Lexapro) 5 mg tablet, Take 1 tablet (5 mg) by mouth once daily., Disp: 90 tablet, Rfl: 3 folic acid (Folvite) 1 mg tablet, Take 2 tablets (2 mg) by mouth once daily., Disp: 180 tablet, Rfl: 3 methotrexate (Trexall) 2.5 mg tablet, Take 8 tablets (20 mg total) by mouth 1 (one) time per week. On Sundays, Disp: , Rfl: metoprolol tartrate (Lopressor) 25 mg tablet, Take 1 tablet (25 mg) by mouth 2 times a day., Disp: 180 tablet, Rfl: 3 omeprazole (PriLOSEC) [address] capsule, Take 1 capsule (40 mg) by mouth once daily in the morning. Take before meals., Disp: 90 capsule, Rfl: 3 pravastatin (Pravachol) 40 mg tablet, Take 1 tablet (40 mg) by mouth once daily at bedtime., Disp: 90 tablet, Rfl: 3 predniSONE (Deltasone) 10 mg tablet, Take 1 Tablet Oral one time daily as needed. Take for 3 to 5 days with a flare., Disp: 30 tablet, Rfl: 0 vit A/vit C/vit E/zinc/copper (PRESERVISION AREDS ORAL), Take 1 tablet by mouth 2 times a day., Disp: , Rfl: [6] No Known Allergies Cosigned by Joon Khoury MD at 05/14/2025 9:31 AM EDT [facility] Work Phone: 05-10-2025 History and physical note [facility] - HISTORY AND PHYSICAL / CONSULT Patient Name: Fawn Cameron Admit Date: [id number] : 1935 AGE: 89 y.o. 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 LOC (yes/no?): Yes Anticoagulant / Anti-platelet Rx? 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 No new bleed identified. Neurosurgery recs: Keppra 500 twice daily, SBP <160, holding anticoagulation, every 4 neurochecks No operative intervention necessary from an ophthalmologic and ENT standpoint. Continue sinus precautions. Orthopedic surgery recs: Nonoperative LC1 pubic rami/incomplete sacral fracture, will attempt ambulation trial SCDs, IS Multimodal pain control, antiemetics Consultants notified (specialty, provider name, time): Neurosurgery, Orthopedic surgery, ENT, ophthalmology Case discussed with Dr. Enzo Dickson, DO, PGY 2 PAST MEDICAL HISTORY: PMH: Noted above Medical History[1] PSH: Reviewed Surgical History[2] FH: Family History[3] SOCIAL HISTORY: Smoking: Denies Tobacco Use History[4] Alcohol: Denies Social History Substance and Sexual Activity Alcohol Use Not Currently Drug use: Denies MEDICATIONS: Reviewed Prior to Admission medications Medication Sig Start Date End Date Taking? Authorizing Provider alfuzosin (Uroxatral) 10 mg 24 hr tablet TAKE 1 TABLET BY MOUTH ONCE DAILY DO NOT CRUSH, CHEW, OR SPLIT 07/03/24 Robb Colindres MD amitriptyline (Elavil) 10 mg tablet Take 1 tablet (10 mg) by mouth once daily at bedtime. 09/01/24 09/01/25 Don Barrera MD amLODIPine (Norvasc) 5 mg tablet Take 1 tablet (5 mg) by mouth once daily. 09/01/24 09/01/25 Don Barrera MD aspirin 81 mg EC tablet Take 1 tablet (81 mg) by mouth once daily. Historical Provider, benazepril (Lotensin) 40 mg tablet Take 1 tablet (40 mg) by mouth once daily. 09/01/24 09/01/25 Don Barrera MD escitalopram (Lexapro) 5 mg tablet Take 1 tablet (5 mg) by mouth once daily. 09/01/24 09/01/25 Don Barrera MD folic acid (Folvite) 1 mg tablet Take 2 tablets (2 mg) by mouth once daily. 09/01/24 09/01/25 Don Barrera MD methotrexate (Trexall) 2.5 mg tablet Take 8 tablets (20 mg total) by mouth 1 (one) time per week. 04/07/20 Historical Provider, metoprolol tartrate (Lopressor) 25 mg tablet Take 1 tablet (25 mg) by mouth 2 times a day. 09/01/24 09/01/25 Don Barrera MD omeprazole (PriLOSEC) [address] capsule Take 1 capsule (40 mg) by mouth once daily in the morning. Take before meals. 09/01/24 09/01/25 Don Barrera MD pravastatin (Pravachol) 40 mg tablet Take 1 tablet (40 mg) by mouth once daily at bedtime. 09/01/24 09/01/25 Don Barrera MD predniSONE (Deltasone) 10 mg tablet Take 1 Tablet Oral one time daily as needed. Take for 3 to 5 days with a flare. 11/11/24 vit A/vit C/vit E/zinc/copper (PRESERVISION AREDS ORAL) Take 1 tablet by mouth once daily. Historical Provider, aspirin 325 mg tablet Take 1 tablet (325 mg) by mouth once daily. 01/10/21 05/07/25 Historical Provider, meclizine (Antivert) 25 mg tablet Take 1 tablet (25 mg) by mouth 3 times a day as needed for dizziness. 09/01/24 05/07/25 Don Barrera MD multivitamin tablet Take 1 tablet by mouth once daily. 05/07/25 Historical Provider, tobramycin-dexamethasone (Tobradex) ophthalmic suspension Apply 1 drop into affected eye four times a day Patient not taking: Reported on 05/07/2025 11/11/24 05/07/25 ALLERGIES: NKDA RX Allergies[5] REVIEW OF SYSTEMS: Review of Systems Constitutional: Negative. HENT: Positive for facial swelling. Eyes: Negative. Respiratory: Negative. Cardiovascular: Negative. Gastrointestinal: Negative. Genitourinary: Negative. Musculoskeletal: Positive for arthralgias. Negative for neck pain and neck stiffness. Skin: Positive for wound. Neurological: Negative for dizziness, light-headedness and numbness. Hematological: Bruises/bleeds easily. PHYSICAL EXAM: PRIMARY SURVEY: Airway Airway is patent. Breathing Breathing is normal. Right breath sounds are normal. Left breath sounds are normal. Circulation Rate is regular. Pulses Radial: 2+ on the right; 2+ on the left. Femoral: 2+ on the right; 2+ on the left. Pedal: 1+ on the right; 1+ on the left. 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 SECONDARY SURVEY/PHYSICAL EXAM: Physical Exam Constitutional: General: He is not in acute distress. HENT: Head: Comments: 3 cm lacerations just above the right brow with [address] face and head otherwise atraumatic, midface stable, no malocclusion Mouth/Throat: Mouth: Mucous membranes are moist. Pharynx: Oropharynx is clear. Eyes: Extraocular Movements: Extraocular movements intact. Pupils: Pupils are equal, round, and reactive to light. Cardiovascular: Rate and Rhythm: Normal rate. Pulmonary: Effort: Pulmonary effort is normal. Breath sounds: Normal breath sounds. Abdominal: General: There is no distension. Palpations: Abdomen is soft. Tenderness: There is no abdominal tenderness. Musculoskeletal: Comments: Range of motion decreased bilateral hips due to pain, muscle strength 5/5 bilateral upper and lower extremities Skin: General: Skin is warm and dry. Comments: Skin tears present on the dorsal right hand/knuckles and forearm without any active bleeding, wrapped with gauze; bilateral forearm ecchymoses (new on RT) Neurological: General: No focal deficit present. Mental Status: He is alert and oriented to person, place, and time. Sensory: No sensory deficit. IMAGING SUMMARY: (summary of findings, not a copy of dictation) CT Head/Face: 2 mm SDH, trace parietal SAH, mildly displaced orbital floor fracture, orbital roof fracture CT C-Spine: No fracture or subluxation CT Chest/Abd/Pelvis: no acute traumatic abnormality LABS: Results from last 7 days Lab Units 05/10/25 1422 WBC AUTO x10*3/uL 10.7 HEMOGLOBIN g/dL 12.3* HEMATOCRIT % 36.3* PLATELETS AUTO x10*3/uL 213 NEUTROS PCT AUTO % 78.1 LYMPHS PCT AUTO % 9.4 MONOS PCT AUTO % 9.7 EOS PCT AUTO % 1.0 Results from last 7 days Lab Units 05/10/25 1422 APTT seconds 29 INR 1.1 Results from last 7 days Lab Units 05/10/25 1422 SODIUM mmol/L 138 POTASSIUM mmol/L 3.9 CHLORIDE mmol/L 106 CO2 mmol/L 26 BUN mg/dL 26* CREATININE mg/dL 0.77 CALCIUM mg/dL 8.7 GLUCOSE mg/dL 95 I have reviewed all laboratory and imaging results ordered/pertinent for this encounter. Daryl Dickson [1] Past Medical History: Diagnosis Date Arthritis 10 years Callus of foot 05/03/2023 Cataract 20 years GERD (gastroesophageal reflux disease) 6 years HL (hearing loss) 5 years ago Hypertension 20 years ago Personal history of other diseases of the nervous system and sense organs History of cataract Unspecified visual disturbance Visual aura [2] Past Surgical History: Procedure Laterality Date CARDIAC CATHETERIZATION 2009 CATARACT EXTRACTION 04/12/2017 Cataract Surgery CIRCUMCISION, PRIMARY 88 years ago COLONOSCOPY 04/12/2017 Colonoscopy (Fiberoptic) HERNIA REPAIR 04/12/2017 Inguinal Hernia Repair JOINT REPLACEMENT 2016 OTHER SURGICAL HISTORY 04/12/2017 History Of Prior Surgery OTHER SURGICAL HISTORY 04/26/2022 Skin biopsy OTHER SURGICAL HISTORY 08/30/2021 Shoulder surgery OTHER SURGICAL HISTORY 08/30/2021 Hip replacement TONSILLECTOMY 04/12/2017 Tonsillectomy With Adenoidectomy VASECTOMY 40 years ago WISDOM TOOTH EXTRACTION [3] Family History Problem Relation Name Age of Onset Heart murmur Mother Adena Obrecht Hyperlipidemia Mother Adena Obrecht Arthritis Mother Adena Obrecht Hearing loss Mother Adena Obrecht Hypertension Mother Adena Obrecht Vision loss Mother Adena Obrecht Other (CARDIAC DISORDER) Father Pneumonia Father Suicide Attempts Brother Heath Stroke Father Hearing loss Father 70 - 79 [4] Social History Tobacco Use Smoking Status Former Current packs/day: 0.00 Types: Cigarettes, Pipe Quit date: 04/22/1962 Years since quittin.0 Passive exposure: Past Smokeless Tobacco Never [5] No Known Allergies Cosigned by Kristy Giraldo DO at 05/12/2025 10:32 AM EDT Associated attestation - Kristy Giraldo DO - 05/12/2025 10:32 AM EDT I saw and evaluated the patient. I personally obtained the de jesus and critical portions of the history and physical exam or was physically present for de jesus and critical portions performed by the resident/fellow. I reviewed the resident/fellow's documentation and discussed the patient with the resident/fellow. I agree with the resident/fellow's medical decision making as documented in the note. Kristy Giraldo DO [facility] Work Phone: 05-10-2025 History and physical note [facility] - HISTORY AND PHYSICAL / CONSULT Patient Name: Fawn Cameron Admit Date: [id number] : 1935 AGE: 89 y.o. 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 LOC (yes/no?): Yes Anticoagulant / Anti-platelet Rx? 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 No new bleed identified. Neurosurgery recs: Keppra 500 twice daily, SBP <160, holding anticoagulation, every 4 neurochecks No operative intervention necessary from an ophthalmologic and ENT standpoint. Continue sinus precautions. Orthopedic surgery recs: Nonoperative LC1 pubic rami/incomplete sacral fracture, will attempt ambulation trial SCDs, IS Multimodal pain control, antiemetics Consultants notified (specialty, provider name, time): Neurosurgery, Orthopedic surgery, ENT, ophthalmology Case discussed with Dr. Enzo Dickson, , PGY 2 PAST MEDICAL HISTORY: PMH: Noted above Medical History[1] PSH: Reviewed Surgical History[2] FH: Family History[3] SOCIAL HISTORY: Smoking: Denies Tobacco Use History[4] Alcohol: Denies Social History Substance and Sexual Activity Alcohol Use Not Currently Drug use: Denies MEDICATIONS: Reviewed Prior to Admission medications Medication Sig Start Date End Date Taking? Authorizing Provider alfuzosin (Uroxatral) 10 mg 24 hr tablet TAKE 1 TABLET BY MOUTH ONCE DAILY DO NOT CRUSH, CHEW, OR SPLIT 07/03/24 Robb Colindres MD amitriptyline (Elavil) 10 mg tablet Take 1 tablet (10 mg) by mouth once daily at bedtime. 09/01/24 09/01/25 Don Barrera MD amLODIPine (Norvasc) 5 mg tablet Take 1 tablet (5 mg) by mouth once daily. 09/01/24 09/01/25 Don Barrera MD aspirin 81 mg EC tablet Take 1 tablet (81 mg) by mouth once daily. Historical Provider, benazepril (Lotensin) 40 mg tablet Take 1 tablet (40 mg) by mouth once daily. 09/01/24 09/01/25 Don Barrera MD escitalopram (Lexapro) 5 mg tablet Take 1 tablet (5 mg) by mouth once daily. 09/01/24 09/01/25 Don Barrera MD folic acid (Folvite) 1 mg tablet Take 2 tablets (2 mg) by mouth once daily. 09/01/24 09/01/25 Don Barrera MD methotrexate (Trexall) 2.5 mg tablet Take 8 tablets (20 mg total) by mouth 1 (one) time per week. 04/07/20 Historical Provider, metoprolol tartrate (Lopressor) 25 mg tablet Take 1 tablet (25 mg) by mouth 2 times a day. 09/01/24 09/01/25 Don Barrera MD omeprazole (PriLOSEC) [address] capsule Take 1 capsule (40 mg) by mouth once daily in the morning. Take before meals. 09/01/24 09/01/25 Don Barrera MD pravastatin (Pravachol) 40 mg tablet Take 1 tablet (40 mg) by mouth once daily at bedtime. 09/01/24 09/01/25 Don Barrera MD predniSONE (Deltasone) 10 mg tablet Take 1 Tablet Oral one time daily as needed. Take for 3 to 5 days with a flare. 11/11/24 vit A/vit C/vit E/zinc/copper (PRESERVISION AREDS ORAL) Take 1 tablet by mouth once daily. Historical Provider, aspirin 325 mg tablet Take 1 tablet (325 mg) by mouth once daily. 01/10/21 05/07/25 Historical Provider, meclizine (Antivert) 25 mg tablet Take 1 tablet (25 mg) by mouth 3 times a day as needed for dizziness. 09/01/24 05/07/25 Don Barrera MD multivitamin tablet Take 1 tablet by mouth once daily. 05/07/25 Historical Provider, tobramycin-dexamethasone (Tobradex) ophthalmic suspension Apply 1 drop into affected eye four times a day Patient not taking: Reported on 05/07/2025 11/11/24 05/07/25 ALLERGIES: NKDA RX Allergies[5] REVIEW OF SYSTEMS: Review of Systems Constitutional: Negative. HENT: Positive for facial swelling. Eyes: Negative. Respiratory: Negative. Cardiovascular: Negative. Gastrointestinal: Negative. Genitourinary: Negative. Musculoskeletal: Positive for arthralgias. Negative for neck pain and neck stiffness. Skin: Positive for wound. Neurological: Negative for dizziness, light-headedness and numbness. Hematological: Bruises/bleeds easily. PHYSICAL EXAM: PRIMARY SURVEY: Airway Airway is patent. Breathing Breathing is normal. Right breath sounds are normal. Left breath sounds are normal. Circulation Rate is regular. Pulses Radial: 2+ on the right; 2+ on the left. Femoral: 2+ on the right; 2+ on the left. Pedal: 1+ on the right; 1+ on the left. 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 SECONDARY SURVEY/PHYSICAL EXAM: Physical Exam Constitutional: General: He is not in acute distress. HENT: Head: Comments: 3 cm lacerations just above the right brow with [address] face and head otherwise atraumatic, midface stable, no malocclusion Mouth/Throat: Mouth: Mucous membranes are moist. Pharynx: Oropharynx is clear. Eyes: Extraocular Movements: Extraocular movements intact. Pupils: Pupils are equal, round, and reactive to light. Cardiovascular: Rate and Rhythm: Normal rate. Pulmonary: Effort: Pulmonary effort is normal. Breath sounds: Normal breath sounds. Abdominal: General: There is no distension. Palpations: Abdomen is soft. Tenderness: There is no abdominal tenderness. Musculoskeletal: Comments: Range of motion decreased bilateral hips due to pain, muscle strength 5/5 bilateral upper and lower extremities Skin: General: Skin is warm and dry. Comments: Skin tears present on the dorsal right hand/knuckles and forearm without any active bleeding, wrapped with gauze; bilateral forearm ecchymoses (new on RT) Neurological: General: No focal deficit present. Mental Status: He is alert and oriented to person, place, and time. Sensory: No sensory deficit. IMAGING SUMMARY: (summary of findings, not a copy of dictation) CT Head/Face: 2 mm SDH, trace parietal SAH, mildly displaced orbital floor fracture, orbital roof fracture CT C-Spine: No fracture or subluxation CT Chest/Abd/Pelvis: no acute traumatic abnormality LABS: Results from last 7 days Lab Units 05/10/25 1422 WBC AUTO x10*3/uL 10.7 HEMOGLOBIN g/dL 12.3* HEMATOCRIT % 36.3* PLATELETS AUTO x10*3/uL 213 NEUTROS PCT AUTO % 78.1 LYMPHS PCT AUTO % 9.4 MONOS PCT AUTO % 9.7 EOS PCT AUTO % 1.0 Results from last 7 days Lab Units 05/10/25 1422 APTT seconds 29 INR 1.1 Results from last 7 days Lab Units 05/10/25 1422 SODIUM mmol/L 138 POTASSIUM mmol/L 3.9 CHLORIDE mmol/L 106 CO2 mmol/L 26 BUN mg/dL 26* CREATININE mg/dL 0.77 CALCIUM mg/dL 8.7 GLUCOSE mg/dL 95 I have reviewed all laboratory and imaging results ordered/pertinent for this encounter. Daryl Dickson [1] Past Medical History: Diagnosis Date Arthritis 10 years Callus of foot 05/03/2023 Cataract 20 years GERD (gastroesophageal reflux disease) 6 years HL (hearing loss) 5 years ago Hypertension 20 years ago Personal history of other diseases of the nervous system and sense organs History of cataract Unspecified visual disturbance Visual aura [2] Past Surgical History: Procedure Laterality Date CARDIAC CATHETERIZATION 2010 CATARACT EXTRACTION 04/12/2017 Cataract Surgery CIRCUMCISION, PRIMARY 88 years ago COLONOSCOPY 04/12/2017 Colonoscopy (Fiberoptic) HERNIA REPAIR 04/12/2017 Inguinal Hernia Repair JOINT REPLACEMENT 2016 OTHER SURGICAL HISTORY 04/12/2017 History Of Prior Surgery OTHER SURGICAL HISTORY 04/26/2022 Skin biopsy OTHER SURGICAL HISTORY 08/30/2021 Shoulder surgery OTHER SURGICAL HISTORY 08/30/2021 Hip replacement TONSILLECTOMY 04/12/2017 Tonsillectomy With Adenoidectomy VASECTOMY 40 years ago WISDOM TOOTH EXTRACTION [3] Family History Problem Relation Name Age of Onset Heart murmur Mother Adena Obrecht Hyperlipidemia Mother Adena Obrecht Arthritis Mother Adena Obrecht Hearing loss Mother Adena Obrecht Hypertension Mother Adena Obrecht Vision loss Mother Adena Obrecht Other (CARDIAC DISORDER) Father Pneumonia Father Suicide Attempts Brother Heath Stroke Father Hearing loss Father 70 - 79 [4] Social History Tobacco Use Smoking Status Former Current packs/day: 0.00 Types: Cigarettes, Pipe Quit date: 04/22/1962 Years since quittin.0 Passive exposure: Past Smokeless Tobacco Never [5] No Known Allergies Cosigned by Kristy Giraldo DO at 05/12/2025 10:32 AM EDT Associated attestation - Kristy Giraldo DO - 05/12/2025 10:32 AM EDT I saw and evaluated the patient. I personally obtained the de jesus and critical portions of the history and physical exam or was physically present for de jesus and critical portions performed by the resident/fellow. I reviewed the resident/fellow's documentation and discussed the patient with the resident/fellow. I agree with the resident/fellow's medical decision making as documented in the note. Kristy Giraldo DO documented in this encounter [facility] Work Phone: 05-10-2025 Consult note Associated Order (s): IP CONSULT TO OPHTHALMOLOGY Reason For Consult Right orbital fracture History Of Present Illness Fawn Campos is a 89 y.o. 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 Patient says he is seeing normally, he does not have any vision changes, everything looks clear. He does not have any new flashes or floaters, no light sensitivity, no eye pain, no double vision, no pain with eye movements, no nausea or vomiting. Denies any other visual complaints including eye pain, diplopia, flashes, floaters, or sudden vision loss. History of CEIOL OU, on refresh gtts Denies prior laser procedures, injections Past Medical History He has a past medical history of Arthritis (10 years), Callus of foot (05/03/2023), Cataract (20 years), GERD (gastroesophageal reflux disease) (6 years), HL (hearing loss) (5 years ago), Hypertension (20 years ago), Personal history of other diseases of the nervous system and sense organs, and Unspecified visual disturbance. Exam Base Eye Exam Visual Acuity (Snellen - Linear) Right Left Near cc 20/20 20/20 Tonometry (Goldmann Applanation, 10:40 PM) Right Left Pressure 9 9 Pupils Pupils Dark Light Shape React APD Right PERRL, No APD 1 1 Round Minimal ADBIRASHID Left PERRL, No APD 1 1 Round Minimal ABDIRASHID Received opioids prior to exam Visual Estrella (Counting fingers) Left Right Full Full Extraocular Movement Right Left Full, Ortho Full, Ortho No clint, n/v Neuro/Psych Oriented x3: Yes Dilation Both eyes: deferred 2/2 not cleared for dilation @ 10:40 PM Slit Lamp and Fundus Exam External Exam Right Left External 4cm laceration above right brow s/p repair, scant dried blood on face Normal Slit Lamp Exam Right Left Lids/Lashes Normal Normal Conjunctiva/Sclera tr injection White and quiet Cornea Clear no staining Clear no staining Anterior Chamber Deep and quiet no cell Deep and quiet no cell Iris Round and reactive Round and reactive Lens PCIOL PCIOL Anterior Vitreous Normal Normal Last Recorded Vitals Blood pressure 135/68, pulse 89, temperature 36.3 C (97.3 F), temperature source Temporal, resp. rate 13, height 1.676 m (5' 6), weight 66.2 kg (146 lb), SpO2 97%. Relevant Results CT maxillofacial bones wo contrast with right orbital roof fracture, no evidence of globe compromise, entrapment, or retrobulbar hematoma Assessment/Plan #Orbital fractures as described -No acute surgical intervention from an ophthalmic standpoint -no evidence of muscle entrapment, globe compromise or retrobulbar hematoma -no medical comorbidities that would increase risk of infection (sinusitis, immunocompromise, recent hospitalization), no mandatory need for systemic antibiotics but can be considered if there are any infectious symptoms soon -return precautions given include diplopia, extreme nausea/vomiting with movement of eyes, decreased vision, increased pain of eyes or any other symptoms -avoid blowing nose, nasal decongestants (Afrin) as needed -elevate head of bed -apply ice packs 20 minutes on affected eye every hour for first 24-48 hours -follow up 1-2 weeks optometry Please page ophthalmology for dilated eye exam when cleared [phone] Recommend follow-up with [facility], within 1-2 weeks. Please call [phone] (EYES) to make appointment. Thank you for the consult. Please contact the Ophthalmology service with further questions or concerns. Abigail Richardson MD Ophthalmology, PGY-3 Ophthalmology Adult Pager - [phone] Ophthalmology Pediatrics Pager (8am- 5pm) - [phone] For adult follow-up appointments, call: [phone] For pediatric follow-up appointments, call: [phone] NOTE: This note is not finalized until attending reviews and signs. [facility] Ophthalmology Abbreviations: OD: right eye OS: left eye OU: both eyes VA: visual acuity IOP: intraocular pressure EOMs: extraocular movements CVF: confrontal visual estrella DFE: dilated fundus exam DBH: dot blot hemorrhage CWS: cotton wool spot AC: anterior chamber RD: retinal detachment PVD: posterior vitreous detachment Cosigned by Don Sanchez MD at 05/11/2025 8:59 AM EDT Associated attestation - Don Sanchez MD - 05/11/2025 8:59 AM EDT I was NOT present during the evaluation of the patient. I reviewed the resident/fellow's documentation and discussed the patient with the resident/fellow in more detail as necessary. I agree with the resident/fellow's medical decision making as documented in the note. [facility] Work Phone: 05-10-2025 Physician Emergency department Note CC: Fall History provided by: Patient Limitations to History: None HPI: Patient is a 89-year-old male with a PMH of GERD, hypertension, osteoarthritis, CAD, remote TIA, and infrarenal AAA who presents to the hospital via EMS from [facility] for a chief complaint of fall. Patient reports that he was walking into volunteer in the hospital when he subsequently woke up in the emergency department. He does not recall what happened and cannot elaborate any preceding events. External Records Reviewed: Previous ED records, inpatient records, outpatient records ? Triage Vitals: T 36.3 C (97.3 F) HR 89 BP 139/72 RR 16 O2 96 % Supplemental oxygen Physical Exam Constitutional: General: He is awake. He is not in acute distress. Appearance: He is not ill-appearing, toxic-appearing or diaphoretic. HENT: Head: Normocephalic. Comments: Septum compression. There is no maxillary or mandibular bony tenderness Nose: Comments: No blood in anterior Mouth/Throat: Comments: Oropharynx is clear without lesions or erythema. No blood in oropharynx Eyes: Extraocular Movements: Extraocular movements intact. Conjunctiva/sclera: Conjunctivae normal. Pupils: Pupils are equal, round, and reactive to light. Neck: Comments: There is no midline cervical tenderness or step-offs. Full range of motion of the neck without pain. Cardiovascular: Rate and Rhythm: Normal rate and regular rhythm. Pulses: Radial pulses are 2+ on the right side and 2+ on the left side. Dorsalis pedis pulses are 2+ on the right side and 2+ on the left side. Heart sounds: Normal heart sounds, S1 normal and S2 normal. Heart sounds not distant. No murmur heard. No friction rub. Pulmonary: Effort: Pulmonary effort is normal. No respiratory distress. Breath sounds: Normal breath sounds. Comments: Lungs are clear to auscultation no evidence of wheezing or crackles. Chest: Comments: There is no chest wall tenderness, ecchymosis, flail segments, crepitus. Abdominal: General: Abdomen is flat. There is no distension. Palpations: Abdomen is soft. Tenderness: There is no abdominal tenderness. There is no guarding or rebound. Musculoskeletal: Right lower leg: No edema. Left lower leg: No edema. Skin: General: Skin is warm and dry. Capillary Refill: Capillary refill takes less than 2 seconds. Comments: 3 cm supraorbital laceration with [address] Neurological: Mental Status: He is alert. GCS: GCS eye subscore is 4. GCS verbal subscore is 5. GCS motor subscore is 6. Comments: Neurologic: Patient is awake and alert. Speech is clear. Face is symmetric without facial droop and facial sensation to light touch equal bilaterally. Uvula midline. Tongue protrusion midline. Hearing intact bilaterally. Full and equal shoulder shrug and head turn against resistance. 5/5 motor strength of UEs and LEs. Sensation to light touch intact in all four extremities. Finger to nose and heel to gilliam intact. No pronator drift. No gait abnormalities. Rombergs negative. Psychiatric: Behavior: Behavior is cooperative. ? ED Course/Treatment/Medical Decision Making EKG Interpretation: Normal sinus rhythm. Rate of 80 bpm. Left axis. Normal intervals. No acute ST elevations, depressions, or T wave inversions. Independent Interpretation of Studies: I independently interpreted: EKG, CXR, CT head Social Determinants Limiting Care: None identified ED Course: ED Course as of 05/15/25 1250 Sun May 10, [id number] Discussed with ophthalmology. They will evaluate the patient. They will need clearance from neurosurgery prior to dilating the eyes [FN] Mon May 11, 2025 0001 Given laceration over the r eyebrow will give empiric unasyn due to cf possible open fx [FN] ED Course User Index [FN] Carri Greer MD Diagnoses as of 05/15/25 1250 Fall, initial encounter Open fracture of roof of right orbit, initial encounter (Multi) Closed bilateral fracture of pubic rami, initial encounter (Multi) SAH (subarachnoid hemorrhage) (Multi) Syncope, unspecified syncope type MDM: Patient is a 89-year-old male with above PMH who presents to the emergency department for a chief complaint of fall. Upon arrival to the emergency department the patient's vital signs are within normal limits, he is nontoxic-appearing, and appears in no acute distress. Upon examination he has no focal neurological deficits and has no other stigmata of traumatic injury other than his known injuries. Outside hospital laboratory studies and imaging studies have been reviewed. Repeat head CT ordered at 6-hour earle in setting of traumatic subarachnoid. Orthopedic surgery, trauma surgery, neurosurgery, ophthalmology, ENT have been consulted. Patient will be given Unasyn for possible open right orbital roof fracture. The patient will be admitted to the trauma surgery service in stable condition for further management. Impression: Fall Open fracture of right orbit Closed bilateral fracture of pubic rami SAH Disposition: Admit to trauma surgery Carri Greer MD Emergency Medicine, PGY-3 Procedures ? [employer] last updated 05/15/2025 12:50 PM Brendan Dougherty DO Resident 05/12/25 1836 Carri Greer MD 05/15/25 1250 Cosigned by Carri Greer MD at 05/15/2025 12:50 PM EDT Associated attestation - Carri Greer MD - 05/15/2025 12:50 PM EDT The patient was seen by the resident/fellow/advanced practice provider. I have personally performed a substantive portion of the encounter. I have seen and examined the patient; agree with the workup, evaluation, MDM, management and diagnosis. The care plan has been discussed. I personally saw the patient and made/approved the management plan and take responsibility for the patient management. I have reviewed the note and agree with the documented findings. Carri Greer MD [facility] Work Phone: 05-10-2025 Emergency department Note CC: Fall History provided by: Patient Limitations to History: None HPI: Patient is a 89-year-old male with a PMH of GERD, hypertension, osteoarthritis, CAD, remote TIA, and infrarenal AAA who presents to the hospital via EMS from [facility] for a chief complaint of fall. Patient reports that he was walking into volunteer in the hospital when he subsequently woke up in the emergency department. He does not recall what happened and cannot elaborate any preceding events. External Records Reviewed: Previous ED records, inpatient records, outpatient records ? Triage Vitals: T 36.3 C (97.3 F) HR 89 BP 139/72 RR 16 O2 96 % Supplemental oxygen Physical Exam Constitutional: General: He is awake. He is not in acute distress. Appearance: He is not ill-appearing, toxic-appearing or diaphoretic. HENT: Head: Normocephalic. Comments: Septum compression. There is no maxillary or mandibular bony tenderness Nose: Comments: No blood in anterior Mouth/Throat: Comments: Oropharynx is clear without lesions or erythema. No blood in oropharynx Eyes: Extraocular Movements: Extraocular movements intact. Conjunctiva/sclera: Conjunctivae normal. Pupils: Pupils are equal, round, and reactive to light. Neck: Comments: There is no midline cervical tenderness or step-offs. Full range of motion of the neck without pain. Cardiovascular: Rate and Rhythm: Normal rate and regular rhythm. Pulses: Radial pulses are 2+ on the right side and 2+ on the left side. Dorsalis pedis pulses are 2+ on the right side and 2+ on the left side. Heart sounds: Normal heart sounds, S1 normal and S2 normal. Heart sounds not distant. No murmur heard. No friction rub. Pulmonary: Effort: Pulmonary effort is normal. No respiratory distress. Breath sounds: Normal breath sounds. Comments: Lungs are clear to auscultation no evidence of wheezing or crackles. Chest: Comments: There is no chest wall tenderness, ecchymosis, flail segments, crepitus. Abdominal: General: Abdomen is flat. There is no distension. Palpations: Abdomen is soft. Tenderness: There is no abdominal tenderness. There is no guarding or rebound. Musculoskeletal: Right lower leg: No edema. Left lower leg: No edema. Skin: General: Skin is warm and dry. Capillary Refill: Capillary refill takes less than 2 seconds. Comments: 3 cm supraorbital laceration with [address] Neurological: Mental Status: He is alert. GCS: GCS eye subscore is 4. GCS verbal subscore is 5. GCS motor subscore is 6. Comments: Neurologic: Patient is awake and alert. Speech is clear. Face is symmetric without facial droop and facial sensation to light touch equal bilaterally. Uvula midline. Tongue protrusion midline. Hearing intact bilaterally. Full and equal shoulder shrug and head turn against resistance. 5/5 motor strength of UEs and LEs. Sensation to light touch intact in all four extremities. Finger to nose and heel to gilliam intact. No pronator drift. No gait abnormalities. Rombergs negative. Psychiatric: Behavior: Behavior is cooperative. ? ED Course/Treatment/Medical Decision Making EKG Interpretation: Normal sinus rhythm. Rate of 80 bpm. Left axis. Normal intervals. No acute ST elevations, depressions, or T wave inversions. Independent Interpretation of Studies: I independently interpreted: EKG, CXR, CT head Social Determinants Limiting Care: None identified ED Course: ED Course as of 05/15/25 1250 Sun May 10, [id number] Discussed with ophthalmology. They will evaluate the patient. They will need clearance from neurosurgery prior to dilating the eyes [FN] Mon May 11, 2025 0001 Given laceration over the r eyebrow will give empiric unasyn due to cf possible open fx [FN] ED Course User Index [FN] Carri Greer MD Diagnoses as of 05/15/25 1250 Fall, initial encounter Open fracture of roof of right orbit, initial encounter (Multi) Closed bilateral fracture of pubic rami, initial encounter (Multi) SAH (subarachnoid hemorrhage) (Multi) Syncope, unspecified syncope type MDM: Patient is a 89-year-old male with above PMH who presents to the emergency department for a chief complaint of fall. Upon arrival to the emergency department the patient's vital signs are within normal limits, he is nontoxic-appearing, and appears in no acute distress. Upon examination he has no focal neurological deficits and has no other stigmata of traumatic injury other than his known injuries. Outside hospital laboratory studies and imaging studies have been reviewed. Repeat head CT ordered at 6-hour earle in setting of traumatic subarachnoid. Orthopedic surgery, trauma surgery, neurosurgery, ophthalmology, ENT have been consulted. Patient will be given Unasyn for possible open right orbital roof fracture. The patient will be admitted to the trauma surgery service in stable condition for further management. Impression: Fall Open fracture of right orbit Closed bilateral fracture of pubic rami SAH Disposition: Admit to trauma surgery Carri Greer MD Emergency Medicine, PGY-3 Procedures ? [employer]Links last updated 05/15/2025 12:50 PM Brendan Dougherty DO Resident 05/12/25 1836 Carri Greer MD 05/15/25 1250 Cosigned by Carri Greer MD at 05/15/2025 12:50 PM EDT Associated attestation - Carri Greer MD - 05/15/2025 12:50 PM EDT The patient was seen by the resident/fellow/advanced practice provider. I have personally performed a substantive portion of the encounter. I have seen and examined the patient; agree with the workup, evaluation, MDM, management and diagnosis. The care plan has been discussed. I personally saw the patient and made/approved the management plan and take responsibility for the patient management. I have reviewed the note and agree with the documented findings. Carri Greer MD Patient transferred to [facility] from [facility] for trauma consult after a fall. 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 Per the hospital footage, fall looks to be mechanical, patient was only down for a few minutes. +LOC with memory loss. Patient was found to have a closed right orbital fx, multiple pelvic fractures and a subdural vs subarachnoid hemorrhage. Patient A&O x4 upon arrival. documented in this encounter [facility] Work Phone: 05-10-2025 Emergency department Triage note Patient transferred to [facility] from [facility] for trauma consult after a fall. 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 Per the hospital footage, fall looks to be mechanical, patient was only down for a few minutes. +LOC with memory loss. Patient was found to have a closed right orbital fx, multiple pelvic fractures and a subdural vs subarachnoid hemorrhage. Patient A&O x4 upon arrival. [facility] Work Phone: 05-10-2025 Physician Emergency department Note Associated Order(s): Laceration Repair HPI Chief Complaint Patient presents with Fall Pt found laying outside ambulance doors laying on cement. Pt does not recall what happened. Ccollar applied and pt placed on stretcher This is a procedure note Procedure Laceration Repair Performed by: Brandee Hawkins PA-C Authorized by: Santiago Menendez DO Consent: Consent obtained: Verbal Consent given by: Patient Risks, benefits, and alternatives were discussed: yes Risks discussed: Infection, need for additional repair, nerve damage, poor wound healing, poor cosmetic result, pain, retained foreign body, tendon damage and vascular damage Alternatives discussed: No treatment, delayed treatment, observation and referral [place] protocol: Procedure explained and questions answered to patient or proxy's satisfaction: yes Relevant documents present and verified: yes Patient identity confirmed: Verbally with patient and arm band Anesthesia: Anesthesia method: Local infiltration Local anesthetic: Lidocaine 1% WITH epi Laceration details: Location: Face Face location: R eyebrow Length (cm): 4 Depth (mm): 3 Pre-procedure details: Preparation: Patient was prepped and draped in usual sterile fashion Exploration: Limited defect created (wound extended): no Hemostasis achieved with: Direct pressure and epinephrine Wound exploration: wound explored through full range of motion and entire depth of wound visualized Wound extent: areolar tissue not violated, fascia not violated, no foreign body, no signs of injury, no nerve damage, no tendon damage and no vascular damage Contaminated: no Treatment: Area cleansed with: Povidone-iodine Amount of cleaning: Standard Irrigation solution: Sterile saline Irrigation volume: 15 Visualized foreign bodies/material removed: no Debridement: None Undermining: None Scar revision: no Skin repair: Repair method: Sutures Suture size: 6-0 Suture material: Prolene Suture technique: Simple interrupted Number of sutures: 11 Approximation: Approximation: Close Repair type: Repair type: Simple Post-procedure details: Dressing: Antibiotic ointment Procedure completion: Tolerated well, no immediate complications Brandee Hawkins PA-C 05/10/25 1906 [facility] Work Phone: 05-10-2025 Emergency department Note Associated Order(s): Laceration Repair HPI Chief Complaint Patient presents with Fall Pt found laying outside ambulance doors laying on cement. Pt does not recall what happened. Ccollar applied and pt placed on stretcher This is a procedure note Procedure Laceration Repair Performed by: Brandee Hawkins PA-C Authorized by: Santiago Menendez DO Consent: Consent obtained: Verbal Consent given by: Patient Risks, benefits, and alternatives were discussed: yes Risks discussed: Infection, need for additional repair, nerve damage, poor wound healing, poor cosmetic result, pain, retained foreign body, tendon damage and vascular damage Alternatives discussed: No treatment, delayed treatment, observation and referral [place] protocol: Procedure explained and questions answered to patient or proxy's satisfaction: yes Relevant documents present and verified: yes Patient identity confirmed: Verbally with patient and arm band Anesthesia: Anesthesia method: Local infiltration Local anesthetic: Lidocaine 1% WITH epi Laceration details: Location: Face Face location: R eyebrow Length (cm): 4 Depth (mm): 3 Pre-procedure details: Preparation: Patient was prepped and draped in usual sterile fashion Exploration: Limited defect created (wound extended): no Hemostasis achieved with: Direct pressure and epinephrine Wound exploration: wound explored through full range of motion and entire depth of wound visualized Wound extent: areolar tissue not violated, fascia not violated, no foreign body, no signs of injury, no nerve damage, no tendon damage and no vascular damage Contaminated: no Treatment: Area cleansed with: Povidone-iodine Amount of cleaning: Standard Irrigation solution: Sterile saline Irrigation volume: 15 Visualized foreign bodies/material removed: no Debridement: None Undermining: None Scar revision: no Skin repair: Repair method: Sutures Suture size: 6-0 Suture material: Prolene Suture technique: Simple interrupted Number of sutures: 11 Approximation: Approximation: Close Repair type: Repair type: Simple Post-procedure details: Dressing: Antibiotic ointment Procedure completion: Tolerated well, no immediate complications Brandee Hawkins PA-C 05/10/25 1904 HPI Chief Complaint Patient presents with Fall Pt found laying outside ambulance doors laying on cement. Pt does not recall what happened. Ccollar applied and pt placed on stretcher Patient was found on the ground outside of her ambulance bay. 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 He was on the ground for less than 1 minute before a bystander noted him on the ground. The patient is amnestic to the event. He denies pain. History provided by: Patient History limited by: Mental status change bight maker used: No Patient History Medical History[1] Surgical History[2] Family History[3] Social History[4] Physical Exam ED Triage Vitals [05/10/25 1356] Temperature Heart Rate Respirations BP 36.6 C (97.9 F) 81 16 135/70 Pulse Ox Temp Source Heart Rate Source Patient Position 95 % Temporal -- -- BP Location FiO2 (%) -- -- Physical Exam Vitals and nursing note reviewed. Constitutional: General: He is not in acute distress. Appearance: Normal appearance. He is normal weight. He is not ill-appearing, toxic-appearing or diaphoretic. Comments: Patient was found lying in the ambulance bay outside on the concrete. He has skin injuries to the head and right hand is better described below. He is able to answer simple questions. He is not aware that he fell. HENT: Head: Normocephalic. Comments: Noted stellate laceration just lateral to the right eyebrow with minimal venous oozing. No skull depression. No hemotympanum. No raccoon eyes. Negative Garcia sign. Right Ear: Tympanic membrane, ear canal and external ear normal. There is no impacted cerumen. Left Ear: Tympanic membrane, ear canal and external ear normal. There is no impacted cerumen. Nose: Nose normal. No rhinorrhea. Mouth/Throat: Mouth: Mucous membranes are moist. Pharynx: Oropharynx is clear. No oropharyngeal exudate or posterior oropharyngeal erythema. Eyes: Extraocular Movements: Extraocular movements intact. Pupils: Pupils are equal, round, and reactive to light. Neck: Comments: Trachea is midline Cardiovascular: Rate and Rhythm: Normal rate and regular rhythm. Heart sounds: No murmur heard. Pulmonary: Effort: Pulmonary effort is normal. Breath sounds: Normal breath sounds. No wheezing. Abdominal: General: Abdomen is flat. Bowel sounds are normal. There is no distension. Palpations: Abdomen is soft. Tenderness: There is no abdominal tenderness. Musculoskeletal: General: Tenderness and signs of injury present. No swelling or deformity. Normal range of motion. Cervical back: Normal range of motion. Skin: General: Skin is warm and dry. Findings: No rash. Comments: Stellate laceration over the right forehead as described above. Additionally, the patient has several small skin avulsions over the dorsum of the right hand. None will require suturing. None are actively bleeding. These ranged in size from 2 to 4 mm. Neurological: General: No focal deficit present. Mental Status: He is alert and oriented to person, place, and time. Mental status is at baseline. Cranial Nerves: No cranial nerve deficit. Sensory: No sensory deficit. Psychiatric: Mood and Affect: Mood normal. Behavior: Behavior normal. Thought Content: Thought content normal. Judgment: Judgment normal. ED Course & MDM Diagnoses as of 05/10/25 1725 Closed fracture of right orbit, initial encounter (Multi) Intracranial hemorrhage (Multi) Multiple closed fractures of pelvis with disruption of pelvic ring, initial encounter (Multi) No data recorded [place] Coma Scale Score: 14 (05/10/25 1402 : Fausto Bradley RN) Medical Decision Making Twelve-lead EKG was interpreted by myself this was noted to contribute directly to patient care. Study reveals a normal sinus rhythm at 80 bpm, leftward axis, delayed R wave progression, no acute ischemic changes. Patient's laceration was sutured by the midlevel provider under my direct supervision. This was tolerated well with the patient without any pair complications. Please see the midlevel provider note for details Patient's tetanus was updated and he was medicated for pain. Patient is agreeable to transfer to a higher level of care and wishes to stay within the system. Patient case was discussed with Dr. Giraldo from [facility] who accepted the patient as a ER to ER transfer. Patient will be transferred by squad in stable condition Critical care time this patient excluding billable procedures is 47-minute secondary to multiple repeat physical examinations, chart review, and interpretation of radiographic studies. Family is at bedside. I disclosed to the traumatic findings including the facial fracture, multiple pelvic fractures, and intracranial hemorrhage. Patient is requesting to stay within the system. Procedure Procedures [1] Past Medical History: Diagnosis Date Arthritis 10 years Callus of foot 05/03/2023 Cataract 20 years GERD (gastroesophageal reflux disease) 6 years HL (hearing loss) 5 years ago Hypertension 20 years ago Personal history of other diseases of the nervous system and sense organs History of cataract Unspecified visual disturbance Visual aura [2] Past Surgical History: Procedure Laterality Date CARDIAC CATHETERIZATION 2010 CATARACT EXTRACTION 04/12/2017 Cataract Surgery CIRCUMCISION, PRIMARY 88 years ago COLONOSCOPY 04/12/2017 Colonoscopy (Fiberoptic) HERNIA REPAIR 04/12/2017 Inguinal Hernia Repair JOINT REPLACEMENT 2016 OTHER SURGICAL HISTORY 04/12/2017 History Of Prior Surgery OTHER SURGICAL HISTORY 04/26/2022 Skin biopsy OTHER SURGICAL HISTORY 08/30/2021 Shoulder surgery OTHER SURGICAL HISTORY 08/30/2021 Hip replacement TONSILLECTOMY 04/12/2017 Tonsillectomy With Adenoidectomy VASECTOMY 40 years ago WISDOM TOOTH EXTRACTION [3] Family History Problem Relation Name Age of Onset Heart murmur Mother Adena Obrecht Hyperlipidemia Mother Adena Obrecht Arthritis Mother Adena Obrecht Hearing loss Mother Adena Obrecht Hypertension Mother Adena Obrecht Vision loss Mother Adena Obrecht Other (CARDIAC DISORDER) Father Pneumonia Father Suicide Attempts Brother Heath Stroke Father Hearing loss Father 70 - 79 [4] Social History Tobacco Use Smoking status: Former Current packs/day: 0.00 Types: Cigarettes, Pipe Quit date: 04/22/1962 Years since quittin.0 Passive exposure: Past Smokeless tobacco: Never Vaping Use Vaping status: Never Used Substance Use Topics Alcohol use: Not Currently Drug use: Never Santiago Menendez DO 05/10/25 2387 documented in this encounter [facility] Work Phone: 05-10-2025 Physician Emergency department Note HPI Chief Complaint Patient presents with Fall Pt found laying outside ambulance doors laying on cement. Pt does not recall what happened. Ccollar applied and pt placed on stretcher Patient was found on the ground outside of her ambulance bay. 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 He was on the ground for less than 1 minute before a bystander noted him on the ground. The patient is amnestic to the event. He denies pain. History provided by: Patient History limited by: Mental status change bight maker used: No Patient History Medical History[1] Surgical History[2] Family History[3] Social History[4] Physical Exam ED Triage Vitals [05/10/25 1356] Temperature Heart Rate Respirations BP 36.6 C (97.9 F) 81 16 135/70 Pulse Ox Temp Source Heart Rate Source Patient Position 95 % Temporal -- -- BP Location FiO2 (%) -- -- Physical Exam Vitals and nursing note reviewed. Constitutional: General: He is not in acute distress. Appearance: Normal appearance. He is normal weight. He is not ill-appearing, toxic-appearing or diaphoretic. Comments: Patient was found lying in the ambulance bay outside on the concrete. He has skin injuries to the head and right hand is better described below. He is able to answer simple questions. He is not aware that he fell. HENT: Head: Normocephalic. Comments: Noted stellate laceration just lateral to the right eyebrow with minimal venous oozing. No skull depression. No hemotympanum. No raccoon eyes. Negative Garcia sign. Right Ear: Tympanic membrane, ear canal and external ear normal. There is no impacted cerumen. Left Ear: Tympanic membrane, ear canal and external ear normal. There is no impacted cerumen. Nose: Nose normal. No rhinorrhea. Mouth/Throat: Mouth: Mucous membranes are moist. Pharynx: Oropharynx is clear. No oropharyngeal exudate or posterior oropharyngeal erythema. Eyes: Extraocular Movements: Extraocular movements intact. Pupils: Pupils are equal, round, and reactive to light. Neck: Comments: Trachea is midline Cardiovascular: Rate and Rhythm: Normal rate and regular rhythm. Heart sounds: No murmur heard. Pulmonary: Effort: Pulmonary effort is normal. Breath sounds: Normal breath sounds. No wheezing. Abdominal: General: Abdomen is flat. Bowel sounds are normal. There is no distension. Palpations: Abdomen is soft. Tenderness: There is no abdominal tenderness. Musculoskeletal: General: Tenderness and signs of injury present. No swelling or deformity. Normal range of motion. Cervical back: Normal range of motion. Skin: General: Skin is warm and dry. Findings: No rash. Comments: Stellate laceration over the right forehead as described above. Additionally, the patient has several small skin avulsions over the dorsum of the right hand. None will require suturing. None are actively bleeding. These ranged in size from 2 to 4 mm. Neurological: General: No focal deficit present. Mental Status: He is alert and oriented to person, place, and time. Mental status is at baseline. Cranial Nerves: No cranial nerve deficit. Sensory: No sensory deficit. Psychiatric: Mood and Affect: Mood normal. Behavior: Behavior normal. Thought Content: Thought content normal. Judgment: Judgment normal. ED Course & MDM Diagnoses as of 05/10/25 1725 Closed fracture of right orbit, initial encounter (Multi) Intracranial hemorrhage (Multi) Multiple closed fractures of pelvis with disruption of pelvic ring, initial encounter (Multi) No data recorded [place] Coma Scale Score: 14 (05/10/25 1402 : Fausto Bradley RN) Medical Decision Making Twelve-lead EKG was interpreted by myself this was noted to contribute directly to patient care. Study reveals a normal sinus rhythm at 80 bpm, leftward axis, delayed R wave progression, no acute ischemic changes. Patient's laceration was sutured by the midlevel provider under my direct supervision. This was tolerated well with the patient without any pair complications. Please see the midlevel provider note for details Patient's tetanus was updated and he was medicated for pain. Patient is agreeable to transfer to a higher level of care and wishes to stay within the system. Patient case was discussed with Dr. Giraldo from [facility] who accepted the patient as a ER to ER transfer. Patient will be transferred by squad in stable condition Critical care time this patient excluding billable procedures is 47-minute secondary to multiple repeat physical examinations, chart review, and interpretation of radiographic studies. Family is at bedside. I disclosed to the traumatic findings including the facial fracture, multiple pelvic fractures, and intracranial hemorrhage. Patient is requesting to stay within the system. Procedure Procedures [1] Past Medical History: Diagnosis Date Arthritis 10 years Callus of foot 05/03/2023 Cataract 20 years GERD (gastroesophageal reflux disease) 6 years HL (hearing loss) 5 years ago Hypertension 20 years ago Personal history of other diseases of the nervous system and sense organs History of cataract Unspecified visual disturbance Visual aura [2] Past Surgical History: Procedure Laterality Date CARDIAC CATHETERIZATION 2010 CATARACT EXTRACTION 04/12/2017 Cataract Surgery CIRCUMCISION, PRIMARY 88 years ago COLONOSCOPY 04/12/2017 Colonoscopy (Fiberoptic) HERNIA REPAIR 04/12/2017 Inguinal Hernia Repair JOINT REPLACEMENT 2016 OTHER SURGICAL HISTORY 04/12/2017 History Of Prior Surgery OTHER SURGICAL HISTORY 04/26/2022 Skin biopsy OTHER SURGICAL HISTORY 08/30/2021 Shoulder surgery OTHER SURGICAL HISTORY 08/30/2021 Hip replacement TONSILLECTOMY 04/12/2017 Tonsillectomy With Adenoidectomy VASECTOMY 40 years ago WISDOM TOOTH EXTRACTION [3] Family History Problem Relation Name Age of Onset Heart murmur Mother Adena Obrecht Hyperlipidemia Mother Adena Obrecht Arthritis Mother Adena Obrecht Hearing loss Mother Adena Obrecht Hypertension Mother Adena Obrecht Vision loss Mother Adena Obrecht Other (CARDIAC DISORDER) Father Pneumonia Father Suicide Attempts Brother Heath Stroke Father Hearing loss Father 70 - 79 [4] Social History Tobacco Use Smoking status: Former Current packs/day: 0.00 Types: Cigarettes, Pipe Quit date: 04/22/1962 Years since quittin.0 Passive exposure: Past Smokeless tobacco: Never Vaping Use Vaping status: Never Used Substance Use Topics Alcohol use: Not Currently Drug use: Never Santiago Menendez DO 05/10/25 1727 [facility] Work Phone: 05-08-2025 Reason for visit Narrative Specialty Diagnoses / Procedures Referred By Contac t Referred To Contact Radiology Diagnoses Neck pain Procedures XR cervical spine 2-3 views Don Barrera MD [address] [id number] Phone: tel: fax: Referral ID Status Reason Start Date Expiration Date Visits Requested Visits Authorized [id number] Authorized Perform Procedure 05/07/2025 05/07/2026 1 1 [facility] Work Phone: [phone]) 867-801207-17-2025 History of Present illness Narrative* Don Barrera MD - 05/07/2025 3:20 PM EDT Subjective Patient ID: Andres Cameron is a 89 y.o. male who presents for Pain in NECK/Head (x1MO). HPI Pain right side of posterior neck, worse with turning head, no arm N/T or weakness, worse for the past month, NKI, daily, using some APAP Review of Systems Constitutional: Negative for activity change, appetite change and fatigue. Respiratory: Negative for cough, chest tightness and shortness of breath. Cardiovascular: Negative for chest pain, palpitations and leg swelling. Gastrointestinal: Negative for abdominal pain, constipation, diarrhea, nausea and vomiting. Musculoskeletal: Positive for neck pain and neck stiffness. Neurological: Positive for headaches. Negative for dizziness, weakness, light- headedness and numbness. Objective BP 120/70 Pulse 71 Ht 1.676 m (5' 6) Wt 66.3 kg (146 lb 3.2 oz) SpO2 95% BMI 23.60 kg/m Physical Exam Vitals and nursing note reviewed. Constitutional: Appearance: Normal appearance. HENT: Head: Normocephalic and atraumatic. Right Ear: Tympanic membrane, ear canal and external ear normal. Left Ear: Tympanic membrane, ear canal and external ear normal. Nose: Nose normal. Mouth/Throat: Mouth: Mucous membranes are moist. Pharynx: Oropharynx is clear. Cardiovascular: Rate and Rhythm: Normal rate and regular rhythm. Pulses: Normal pulses. Heart sounds: Normal heart sounds. Pulmonary: Effort: Pulmonary effort is normal. Breath sounds: Normal breath sounds. Musculoskeletal: Cervical back: Normal range of motion and neck supple. Comments: Some pain in the neck with rotation to the left, some limitation with full forward flexion, slightly tender to palpation along the paraspinal muscles of the cervical spine between the levelof C2-C5. Normal upper extremity strength, reflexes intact, range of motion of the upper extremity is intact, negative Spurling sign Skin: General: Skin is warm and dry. Capillary Refill: Capillary refill takes less than 2 seconds. Neurological: Mental Status: He is alert. Psychiatric: Mood and Affect: Mood normal. Behavior: Behavior normal. Assessment/Plan Problem List Items Addressed This Visit None Visit Diagnoses Codes Neck pain - Primary M54.2 Check x-ray and refer to PT, patient also inquired about doing acupuncture. Relevant Orders XR cervical spine 2-3 views Referral to Physical Therapy documented in this [facility] Work Phone: 1(300) 684-944406-20-2025 History of Present illness Narrative* GINA Dickerson - 04/10/2025 10:55 AM EDT [facility] GINA Dickerson Visit Note - 04/10/2025 11:49 AM This note was generated with voice recognition software and may contain errors including spelling, grammar, syntax, and misrecognization of what was dictated. Patient: Fawn Cameron, , 89 y.o., male PCP: Don Barrera MD ALLERGIES: Allergies[1] CURRENT MEDICATIONS: Current Outpatient Medications Medication Instructions alfuzosin (UROXATRAL) 10 mg, oral, Daily, DO NOT CRUSH CHEW OR SPLIT amitriptyline (ELAVIL) 10 mg, oral, Nightly amLODIPine (NORVASC) 5 mg, oral, Daily aspirin 325 mg tablet 1 tablet, Daily benazepril (LOTENSIN) 40 mg, oral, Daily escitalopram (LEXAPRO) 5 mg, oral, Daily folic acid (FOLVITE) 2 mg, oral, Daily meclizine (ANTIVERT) 25 mg, oral, 3 times daily PRN methotrexate (Trexall) 2.5 mg tablet 8 tablets, Once Weekly metoprolol tartrate (LOPRESSOR) 25 mg, oral, 2 times daily multivitamin tablet 1 tablet, Daily omeprazole (PRILOSEC) 40 mg, oral, Daily before breakfast pravastatin (PRAVACHOL) 40 mg, oral, Nightly predniSONE (Deltasone) 10 mg tablet Take 1 Tablet Oral one time daily as needed. Take for 3 to 5 days with a flare. tobramycin-dexamethasone (Tobradex) ophthalmic suspension Apply 1 drop into affected eye four timesa day PAST MEDICAL HX: Problem List[2] SURGICAL HX: Surgical History[3] FAMILY HX: No pertinent history. SOCIAL HX: reports that he quit smoking about 63 years ago. His smoking use included cigarettes and pipe. He has been exposed to tobacco smoke. He has never used smokeless tobacco. 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 CHIEF COMPLAINT: Chief Complaint Patient presents with Chest Pain Left rib pain X 3 days after chiropractic visit HISTORY OF PRESENT ILLNESS: The history was obtained from patientMitzi Tenorio is a 89 y.o. male, who presents with a chief complaint of L-sided anterior and lateral rib pain that started during his first chiropractic adjustment, which he had on Sunday. Reports he was laying on his stomach during the adjustment, and abruptly felt a quick, sharp pain in his L lower ribcage, but didn't think much of itat the time. However, on Sunday, he started to have increased discomfort in the area, and pain haspersisted without much change since then. Reports has sharp, aching pain especially when he tries to lift or stretch his L arm out (such as when he drives), and also has increased pain in the rib when he takes a deep breath. Reports it was hard to get comfortable last night when he went to bed. Denies any radiation of pain or numbness/tingling to extremities. No new pain to his neck, shoulder, orback (has osteoarthritis and ongoing issues with his back, but feels this is baseline and unchanged). Denies any CP or SOB; denies any dizziness. Reports took tylenol and has used a heating pad last night (helped his discomfort a little); has not tried any other OTC medications or conservative medications for symptoms. Reports he is not aware of any history of osteoporosis or osteopenia. REVIEW OF SYSTEMS: 10 systems reviewed negative with exception of history of present illness as listed above. TODAY'S VITALS: BP 144/79 Temp 36.4 C (97.6 F) (Temporal) Ht 1.676 m (5' 6) Wt 68.5 kg (151 lb) SpO2 97% BMI 24.37 kg/m PHYSICAL EXAMINATION: General: Pleasant gentleman, alert and oriented, in no acute distress. Able to ambulate and to movefrom standing to sitting (and vice versa) independently. Respiratory: Lungs are clear to auscultation; no wheezes, rhonchi, or rales. Respirations easy and unlabored, and without inspiratory arrest, but very deep breaths elicit discomfort to L lower ribcage (anteriorly and laterally). Breath sounds are equal, Symmetrical chest wall expansion. Cardiovascular: Regular rate and rhythm, normal S1S2. No m/r/g. Gastrointestinal: Abdomen soft and non-tender. Bowel sounds normoactive. Musculoskeletal: Appears somewhat uncomfortable, but able to ambulate and change positions independently. No visible joint deformity, swelling, or skin discoloration noted; skin intact and without rash. Has localized tenderness over L lower ribcage (both anteriorly and laterally). Has pain anteriorly with AP compression. Has very limited ROM of R shoulder (reports is baseline); ROM L shoulder nearly full but ROM triggers pain in anterior aspect of L lower ribcage. Grossly FROM c-spine/lumbar spine without limitation. N/V upper extremities intact. Integumentary: see above. Neurologic: Alert and oriented, no focal deficits, no motor or sensory deficits. Cognition and Speech: Oriented, Speech clear and coherent. Psychiatric: Cooperative, Appropriate mood & affect. Medical Decision Making LABORATORY or RADIOLOGICAL IMAGING ORDERS/RESULTS: XR ribs 2 views left w chest pa or ap Status: Final result PACS Images Show images for XR ribs 2 views left w chest pa or ap In Basket Actions Done Result Mgmt View in In Basket Signed by Signed Time Phone Pager Howard Elias MD 04/10/2025 13:50 Exam Information Status Exam Begun Exam Ended Final 04/10/2025 12:14 04/10/2025 12:23 Study Result Narrative & Impression Interpreted By: Howard Elias, STUDY: XR RIBS 2 VIEWS LEFT WITH CHEST PA OR AP; ; 04/10/2025 12:23 pm INDICATION: Signs/Symptoms:L lower anterior/lateral ribcage pain - reports sxs started after a chiropractic adjustment (done while he was laying on his abdomen) on Sunday.. ,R07.81 Pleurodynia COMPARISON: None. ACCESSION NUMBER(S): [id number] ORDERING CLINICIAN: LINCOLN KING FINDINGS: Cardiac silhouette within normal limits. Mild bibasilar fibrotic stranding. No focal infiltrate, pleural effusion or pneumothorax. Nondisplaced fracture of the anterior left 6th rib. IMPRESSION: Nondisplaced fracture anterior left 6th rib. No pneumothorax. MACRO: None Signed by: Howard Elias 04/10/2025 1:50 PM Dictation workstation: [id number] IMPRESSION/PLAN: Course: Worsening; stable 1. Rib pain on left side (Primary) - XR ribs 2 views left w chest pa or ap; Future XR done today - showed a non-displaced fracture of the anterior L 6th rib; no pneumothorax. No red flags on exam. Encouraged to rest, continue ice/heat for comfort, gentle stretching/ROM exercises asdiscomfort allows, and should continue Tylenol as needed for management of discomfort. Discussed stronger pain medication for PRN use, but patient declines rx at this time. Reminded of importance of deep breaths throughout the day to help prevent pneumonia from developing. Can use pillow for bracing/support. Reviewed red flags to monitor for, counseled on expectations for improvement in symptoms,and emphasized importance of seeking care at the ER immediately for pain that he is unable to manage with rx'd medications, SOB/CP, dizziness, or other red flags which are not noted today. Encouragedto follow up with PCP next week for a recheck. Pt verbalized understanding of discussion, and agreed with plan of care. 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, lumbar BPH (benign prostatic hyperplasia) Arthralgia of left thigh Erectile dysfunction 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 Hematuria History of reverse total replacement of left shoulder joint Hyperlipidemia Abdominal aneurysm Hypertension Lumbar radiculopathy DJD (degenerative joint disease), lumbar Lumbosacral spondylosis Migraine with visual aura Nocturia Obstructive sleep apnea syndrome Osteoarthritis Peripheral arterial occlusive disease Shoulder weakness Shoulder pain TIA (transient ischemic attack) Urinary retention Arthritis of left hip Bradycardia Dry eye syndrome Epiretinal membrane (ERM) of left eye Nonexudative age-related macular degeneration, bilateral, early dry stage Onychomycosis Pseudophakia of both eyes Punctate keratitis, bilateral PVD (posterior vitreous detachment), bilateral Status post total replacement of left hip Subjective visual disturbance Inflammatory polyarthropathy (Multi) MARIANGEL (generalized anxiety disorder) Hiatal hernia Back pain [3] Past Surgical History: Procedure Laterality Date CARDIAC CATHETERIZATION CATARACT EXTRACTION 04/12/2017 Cataract Surgery CIRCUMCISION, PRIMARY COLONOSCOPY 04/12/2017 Colonoscopy (Fiberoptic) HERNIA REPAIR 04/12/2017 Inguinal Hernia Repair JOINT REPLACEMENT OTHER SURGICAL HISTORY 04/12/2017 History Of Prior Surgery OTHER SURGICAL HISTORY 04/26/2022 Skin biopsy OTHER SURGICAL HISTORY 08/30/2021 Shoulder surgery OTHER SURGICAL HISTORY 08/30/2021 Hip replacement TONSILLECTOMY 04/12/2017 Tonsillectomy With Adenoidectomy VASECTOMY WISDOM TOOTH EXTRACTION documented in this [facility] Work Phone: 1(230) 840-401506-20-2025 NotePatient is a pleasant 89-year-old male who comes in today for introduced arterial disease with nail care. His geriatric care and primary care is managed by Dr. Don Barrera. Physical Vascular: DP pulses are palpable 2 out of 4 bilaterally. PT pulses are nonpalpable bilaterally with +1 edema to the ankle and foot. Derm: Skin is shiny atrophic dysvascular with absence of hair growth. Capillary refill time is greater than 5 seconds to distal digits. Nails 78123 left foot nails 69905 right foot are elongated thickened mycotic crumbling and dystrophic. Neuro: Light touch is normal Babinski's is normal. 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 -At this time is eligible for nail care in light of his arterial disease age induced Procedure: After timeout consults performed, sharply debrided and debulked in height and length 10 onychomycotic nails with a sharp pair of nail nippers consistent with a q8 modifier. -Follow-up in 3 months for foot nail care AUTHENTICATED BY ELADIO KINGSLEY JR., ON 04/10/2025 08:19:02[facility]06-20-2025 History of Present illness Narrative* Eladio Kingsley Jr., DPM - 04/10/2025 8:18 AM EDT Patient is a pleasant 89-year-old male who comes in today for introduced arterial disease with nailcare. His geriatric care and primary care is managed by Dr. Don Barrera. Physical Vascular: DP pulses are palpable 2 out of 4 bilaterally. PT pulses are nonpalpable bilaterally with+1 edema to the ankle and foot. Derm: Skin is shiny atrophic dysvascular with absence of hair growth. Capillary refill time is greater than 5 seconds to distal digits. Nails 90689 left foot nails 77741 right foot are elongated thickened mycotic crumbling and dystrophic. Neuro: Light touch is normal Babinski's is normal. 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 -At this time is eligible for nail care in light of his arterial disease age induced Procedure: After timeout consults performed, sharply debrided and debulked in height and length 10 onychomycotic nails with a sharp pair of nail nippers consistent with a q8 modifier. -Follow-up in 3 months for foot nail care documented in this [id number] NoteHNO ID: [id number] Author: DELTA BANGURA MD Service: ? Author Type: Physician Type: Progress Notes Filed: 03/10/2025 16:38 Note Text: ASSESSMENT/PLAN: 1. Nonexudative age-related macular degeneration, bilateral, early dry stage - ICD9: 362.51, ICD10: H35.3131 (primary diagnosis) Please monitor each eye daily with Amsler Grid. AREDS 2 Vitamins are available over the counter at any drug store. Observe 2. Epiretinal membrane (ERM) of left eye - ICD9: 362.56, ICD10: H35.372 Patient was given both written and verbal information on flashes and floaters. Patient was instructed to call the office ([phone]) immediately upon noticing flashes of light, increase in floaters, or changes in vision. Monitor for progression 3. Pseudophakia of both eyes - ICD9: V43.1, ICD10: Z96.1 Intraocular lens implant in good position Both Eyes. Continue: Systane Complete solution instill 1 drop 3 times daily Both Eyes. I have confirmed and edited as necessary the relevant HPI, ophthalmic history, ROS, and the neuro exam findings as obtained by others. I have seen and examined Fawn Cameron. I have discussed the case and the management of this patient's care with the Resident/Fellow, if applicable. I also have reviewed and agree with the assessment and plan as stated above and agree with all of its relevant components.[facility]03-21-2025 NotePatient is a pleasant 89-year-old male who comes in today for introduced arterial disease with nail care. His geriatric care and primary care is managed by Dr. Don Barrera. Physical Vascular: DP pulses are palpable 2 out of 4 bilaterally. PT pulses are nonpalpable bilaterally with +1 edema to the ankle and foot. Derm: Skin is shiny atrophic dysvascular with absence of hair growth. Capillary refill time is greater than 5 seconds to distal digits. Nails 57928 left foot nails 87064 right foot are elongated thickened mycotic crumbling and dystrophic. Neuro: Light touch is normal Babinski's is normal. 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 -At this time is eligible for nail care in light of his arterial disease age induced Procedure: After timeout consults performed, sharply debrided and debulked in height and length 10 onychomycotic nails with a sharp pair of nail nippers consistent with a q8 modifier. -Follow-up in 3 months for foot nail care AUTHENTICATED BY ELADIO KINGSLEY JR., ON 01/09/2025 08:22:08[facility]03-21-2025 History of Present illness Narrative* Eladio Kingsley Jr., DP - 01/09/2025 8:21 AM EDT Patient is a pleasant 89-year-old male who comes in today for introduced arterial disease with nailcare. His geriatric care and primary care is managed by Dr. Don Barrera. Physical Vascular: DP pulses are palpable 2 out of 4 bilaterally. PT pulses are nonpalpable bilaterally with+1 edema to the ankle and foot. Derm: Skin is shiny atrophic dysvascular with absence of hair growth. Capillary refill time is greater than 5 seconds to distal digits. Nails 09555 left foot nails 06997 right foot are elongated thickened mycotic crumbling and dystrophic. Neuro: Light touch is normal Babinski's is normal. 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 -At this time is eligible for nail care in light of his arterial disease age induced Procedure: After timeout consults performed, sharply debrided and debulked in height and length 10 onychomycotic nails with a sharp pair of nail nippers consistent with a q8 modifier. -Follow-up in 3 months for foot nail care documented in this [id number] Evaluation + Plan note* Assessment & Plan Note - Don Barrera MD - 11/20/2024 8:25 AM EST Associated Problem(s): Osteoarthritis Seeing pain medicine physician, epidural steroid injection somewhat helpful with hip pain but not really helpful with low back pain. [facility] Work Phone: 1(281) 889-547001-30-2025 Evaluation + Plan note* Assessment & Plan Note - Don Barrera MD - 11/20/2024 8:25 AM ESTAssociated Problem(s): Inflammatory polyarthropathy (Multi) Follows with rheumatology. [facility] Work Phone: [phone]) 305-257901-30-2025 Evaluation + Plan note* Assessment & Plan Note - Don Barrera MD - 11/20/2024 8:25 AM ESTAssociated Problem(s): MARIANGEL (generalized anxiety disorder) Stable with medication, interrupting day-to-day life, satisfied with current level of anxiety. [facility] Work Phone: [phone] 100-348301-30-2025 Miscellaneous Notes* Assessment & Plan Note - Don Barrera MD - 11/20/2024 8:25 AM ESTAssociated Problem(s): Osteoarthritis Seeing pain medicine physician, epidural steroid injection somewhat helpful with hip pain but not really helpful with low back pain. * Assessment & Plan Note - Don Barrera MD - 11/20/2024 8:25 AM EST Associated Problem(s): Inflammatory polyarthropathy (Multi) Follows with rheumatology. * Assessment & Plan Note - Don Barrera MD - 11/20/2024 8:25 AM EST Associated Problem(s): MARIANGEL (generalized anxiety disorder) Stable with medication, interrupting day-to-day life, satisfied with current level of anxiety. * Assessment & Plan Note - Don Barrera MD - 11/20/2024 8:24 AM EST Associated Problem(s): BPH (benign prostatic hyperplasia) Currently he is stable, does have some nocturia, check PSA at follow-up appointment, could consideradding tamsulosin but concerned about possible dizziness side effect * Assessment & Plan Note - Don Barrera MD - 11/20/2024 8:24 AM EST Associated Problem(s): 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 Asymptomatic with medication. * Assessment & Plan Yazmin - Don Barrera MD - 11/20/2024 8:24 AM EST Associated Problem(s): Peripheral arterial occlusive disease ([facility]) Complaining of claudication. * Assessment & Plan Note - Don Barrera MD - 11/20/2024 8:24 AM EST Associated Problem(s): Hypertension Blood pressure under good control, electrolyte and renal functions recently were normal. * Assessment & Plan Note - Don Barrera MD - 11/20/2024 8:24 AM EST Associated Problem(s): Abdominal aneurysm ([facility]) Ultrasound last May was stable. * Assessment & Plan Note - Don Barrera MD - 11/20/2024 8:24 AM EST Associated Problem(s): Hyperlipidemia Thick LDL cholesterol today, continue with current medication. documented in this [facility] Work Phone: [phone]) 644-361901-30-2025 Evaluation + Plan note* Assessment & Plan Note - Don Barrera MD - 11/20/2024 8:24 AM ESTAssociated Problem(s): BPH (benign prostatic hyperplasia) Currently he is stable, does have some nocturia, check PSA at follow-up appointment, could consideradding tamsulosin but concerned about possible dizziness side effect [facility] Work Phone: [phone]) 212-165301-30-2025 Evaluation + Plan note* Assessment & Plan Note - Don Barrera MD - 11/20/2024 8:24 AM ESTAssociated Problem(s): 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 Asymptomatic with medication. [facility] Work Phone: [phone] 308-316401-30-2025 Evaluation + Plan note* Assessment & Plan Note - Don Barrera MD - 11/20/2024 8:24 AM ESTAssociated Problem(s): Peripheral arterial occlusive disease ([facility]-H[facility]) Complaining of claudication. [facility] Work Phone: 1([phone]) 119-788101-30-2025 Evaluation + Plan note* Assessment & Plan Note - Don Barrera MD - 11/20/2024 8:24 AM ESTAssociated Problem(s): Hypertension Blood pressure under good control, electrolyte and renal functions recently were normal. [facility] Work Phone: [phone] 580-845901-30-2025 Evaluation + Plan note* Assessment & Plan Note - Don Barrera MD - 11/20/2024 8:24 AM ESTAssociated Problem(s): Abdominal aneurysm ([facility]) Ultrasound last May was stable. [facility] Work Phone: [phone] 424-940401-30-2025 Evaluation + Plan note* Assessment & Plan Note - Don Barrera MD - 11/20/2024 8:24 AM ESTAssociated Problem(s): Hyperlipidemia Thick LDL cholesterol today, continue with current medication. [facility] Work Phone: [phone] 442-470501-30-2025 History of Present illness Narrative* Don Barrera MD - 11/20/2024 8:00 AM EST Subjective Patient ID: Andres Cameron is a 89 y.o. male who presents for 6 MO LABS. HPI No headache, chest pain, shortness of breath, dizziness, lightheadedness, or edema Follows with rheumatology on a regular basis Taking PPI daily without breakthrough symptoms. Reviewed dietary, caffeine, tobacco, alcohol, and NSAID use. No dyspepsia, dysphagia, reflux, melena, or abdominal pain. Has seen pain medicine in [place], had MARY, some help Vertigo better Some auras at times, less intense, sees Ophthalmology, occasional headaches, uses APAP as needed, rare prednisone use Sleep OK at night, has to get up often to urinate Some urine urge and frequency Some blue feelings at times, not terrible, not interrupting life during the day Doing some exercises for balance Review of Systems Constitutional: Positive for fatigue. Negative for activity change, appetite change and unexpected weight change. HENT: Negative for ear pain, nosebleeds, rhinorrhea, sneezing and trouble swallowing. Respiratory: Negative for cough, shortness of breath and wheezing. Cardiovascular: Negative for chest pain, palpitations and leg swelling. Gastrointestinal: Negative for abdominal distention, abdominal pain, constipation, diarrhea, nauseaand vomiting. Genitourinary: Positive for frequency and urgency. Negative for difficulty urinating. Musculoskeletal: Negative for arthralgias. Skin: Negative for rash. Neurological: Negative for dizziness, light-headedness, numbness and headaches. Hematological: Negative for adenopathy. Psychiatric/Behavioral: Negative for behavioral problems. All other systems reviewed and are negative. Objective BP 110/70 Pulse 65 Ht 1.676 m (5' 6) Wt 69.3 kg (152 lb 12.8 oz) SpO2 99% BMI 24.66 kg/m Physical Exam Vitals and nursing note reviewed. Constitutional: General: He is not in acute distress. Appearance: Normal appearance. He is not toxic-appearing. HENT: Head: Normocephalic and atraumatic. Right Ear: Tympanic membrane, ear canal and external ear normal. Left Ear: Tympanic membrane, ear canal and external ear normal. Nose: Nose normal. Mouth/Throat: Mouth: Mucous membranes are moist. Pharynx: Oropharynx is clear. Eyes: Extraocular Movements: Extraocular movements intact. Conjunctiva/sclera: Conjunctivae normal. Pupils: Pupils are equal, round, and reactive to light. Cardiovascular: Rate and Rhythm: Normal rate and regular rhythm. Pulses: Normal pulses. Heart sounds: Normal heart sounds. Pulmonary: Effort: Pulmonary effort is normal. Breath sounds: Normal breath sounds. Abdominal: General: Abdomen is flat. Bowel sounds are normal. Palpations: Abdomen is soft. Musculoskeletal: Cervical back: Normal range of motion and neck supple. Skin: General: Skin is warm and dry. Capillary Refill: Capillary refill takes less than 2 seconds. Neurological: General: No focal deficit present. Mental Status: He is alert and oriented to person, place, and time. Mental status is at baseline. Psychiatric: Mood and Affect: Mood normal. Behavior: Behavior normal. Assessment/Plan Problem List Items Addressed This Visit ICD-10-CM BPH (benign prostatic hyperplasia) N40.0 Currently he is stable, does have some nocturia, check PSA at follow-up appointment, could consideradding tamsulosin but concerned about possible dizziness side effect Relevant Orders Follow Up In Primary Care - Established Prostate Specific Antigen, Screen 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 K21.9 Asymptomatic with medication. Relevant Orders Follow Up In Primary Care - Established Hyperlipidemia E78.5 Thick LDL cholesterol today, continue with current medication. Relevant Orders Follow Up In Primary Care - Established Cholesterol, LDL Direct Comprehensive Metabolic Panel Lipid Panel Abdominal aneurysm ([facility]) I71.40 Ultrasound last May was stable. Relevant Orders Follow Up In Primary Care - Established Hypertension - Primary I10 Blood pressure under good control, electrolyte and renal functions recently were normal. Relevant Orders Follow Up In Primary Care - Established Comprehensive Metabolic Panel Osteoarthritis M19.90 Seeing pain medicine physician, epidural steroid injection somewhat helpful with hip pain but not really helpful with low back pain. Relevant Orders Follow Up In Primary Care - Established Peripheral arterial occlusive disease ([facility]) I77.9 Complaining of claudication. Relevant Orders Follow Up In Primary Care - Established Inflammatory polyarthropathy (Multi) M06.4 Follows with rheumatology. Relevant Orders Follow Up In Primary Care - Established Vitamin B12 Ferritin Folate MARIANGEL (generalized anxiety disorder) F41.1 Stable with medication, interrupting day-to-day life, satisfied with current level of anxiety. Relevant Orders Follow Up In Primary Care - Established Other Visit Diagnoses Codes Anemia, unspecified type D64.9 Relevant Orders Follow Up In Primary Care - Established Vitamin B12 Ferritin Folate Screening for prostate cancer Z12.5 Relevant Orders Follow Up In Primary Care - Established Prostate Specific Antigen, Screen documented in this [facility] Work Phone: [phone] NotePatient is a pleasant 89-year-old male who comes in today for introduced arterial disease with nail care. His geriatric care and primary care is managed by Dr. Don Barrera. Physical Vascular: DP pulses are palpable 2 out of 4 bilaterally. PT pulses are nonpalpable bilaterally with +1 edema to the ankle and foot. Derm: Skin is shiny atrophic dysvascular with absence of hair growth. Capillary refill time is greater than 5 seconds to distal digits. Nails 92899 left foot nails 98672 right foot are elongated thickened mycotic crumbling and dystrophic. Neuro: Light touch is normal Babinski's is normal. 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 -At this time is eligible for nail care in light of his arterial disease age induced Procedure: After timeout consults performed, sharply debrided and debulked in height and length 10 onychomycotic nails with a sharp pair of nail nippers consistent with a q8 modifier. -Follow-up in 3 months for foot nail care AUTHENTICATED BY ELADIO KINGSLEY JR., ON 10/01/2024 08:32:38[facility] [id number] History of Present illness Narrative* Eladio Kingsley Jr., DPM - 10/01/2024 8:32 AM EST Patient is a pleasant 89-year-old male who comes in today for introduced arterial disease with nailcare. His geriatric care and primary care is managed by Dr. Don Barrera. Physical Vascular: DP pulses are palpable 2 out of 4 bilaterally. PT pulses are nonpalpable bilaterally with+1 edema to the ankle and foot. Derm: Skin is shiny atrophic dysvascular with absence of hair growth. Capillary refill time is greater than 5 seconds to distal digits. Nails 13647 left foot nails 91462 right foot are elongated thickened mycotic crumbling and dystrophic. Neuro: Light touch is normal Babinski's is normal. 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 -At this time is eligible for nail care in light of his arterial disease age induced Procedure: After timeout consults performed, sharply debrided and debulked in height and length 10 onychomycotic nails with a sharp pair of nail nippers consistent with a q8 modifier. -Follow-up in 3 months for foot nail care documented in this [id number] History of Present illness Narrative* Don Barrera MD - 09/01/2024 11:40 AM EST Subjective Patient ID: Andres Cameron is a 89 y.o. male who presents for Dizzy,shakey. HPI Last week had event like in ER in November, has had recurre since + vertigo (lasts for seconds), feeling shaky and unsteady, denies palpitations, no SOB/nausea, had some headache the past 2 days No falls, using a cane Review of Systems Constitutional: Positive for fatigue. Negative for activity change, appetite change and unexpected weight change. HENT: Negative for ear pain, nosebleeds, rhinorrhea, sneezing and trouble swallowing. Respiratory: Negative for cough, shortness of breath and wheezing. Cardiovascular: Negative for chest pain, palpitations and leg swelling. Gastrointestinal: Negative for abdominal distention, abdominal pain, constipation, diarrhea, nauseaand vomiting. Genitourinary: Negative for difficulty urinating. Musculoskeletal: Negative for arthralgias. Skin: Negative for rash. Neurological: Positive for dizziness, weakness and light-headedness. Negative for numbness and headaches. Hematological: Negative for adenopathy. Psychiatric/Behavioral: Negative for behavioral problems. All other systems reviewed and are negative. Objective BP 150/80 Pulse (!) 139 Ht 1.676 m (5' 6) Wt 68.3 kg (150 lb 9.6 oz) SpO2 96% BMI 24.31 kg/m Physical Exam Vitals and nursing note reviewed. Constitutional: Appearance: Normal appearance. HENT: Head: Normocephalic and atraumatic. Right Ear: Tympanic membrane, ear canal and external ear normal. Left Ear: Tympanic membrane, ear canal and external ear normal. Nose: Nose normal. Mouth/Throat: Mouth: Mucous membranes are moist. Pharynx: Oropharynx is clear. Cardiovascular: Rate and Rhythm: Normal rate and regular rhythm. Pulses: Normal pulses. Heart sounds: Normal heart sounds. Pulmonary: Effort: Pulmonary effort is normal. Breath sounds: Normal breath sounds. Musculoskeletal: Cervical back: Normal range of motion and neck supple. Skin: General: Skin is warm and dry. Capillary Refill: Capillary refill takes less than 2 seconds. Neurological: General: No focal deficit present. Mental Status: He is alert and oriented to person, place, and time. Mental status is at baseline. Comments: Positive [place]-Hallpike maneuver to the right. Psychiatric: Mood and Affect: Mood normal. Behavior: Behavior normal. 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 Relevant Medications folic acid (Folvite) 1 mg tablet meclizine (Antivert) 25 mg tablet Other Relevant Orders Holter Or Event Floorperson CBC and Auto Differential Comprehensive Metabolic Panel TSH with reflex to Free T4 if abnormal ECG 12 Lead (Completed) Palpitations R00.2 Concern today when nurse taking vital signs elevated heart rate, EKG stable, normal exam today, check labs and Holter to rule out A-fib Relevant Medications folic acid (Folvite) 1 mg tablet Other Relevant Orders Holter Or Event Floorperson CBC and Auto Differential Comprehensive Metabolic Panel TSH with reflex to Free T4 if abnormal ECG 12 Lead (Completed) [facility] Work Phone: 1(533) 630-216509-12-2024 History of Present illness Narrative* Otoniel Salcedo MD - 07/03/2024 11:45 AM EDT Cardiology Subsequent Encounter Clinic Note Name: Fawn Cameron : 1935 CC: CAD Active Issues: Fawn Cameron is a 89 y.o. male with a medical history of coronary artery disease, hypertension, previous TIA, here to establish care: Problem #1 history of coronary artery disease -Per notes he has a history of near total occlusion of his RCA that has been conservatively managedin the past with EECP and medications (diagnosed in 2007; confirmed on repeat angiogram 2010). No prior history of stents or open heart surgery. Problem #2 hypertension -Current medications include benazepril 40 mg daily, Lopressor 25 mg twice daily Problem #3 previous history of TIA -Due to a history of TIA he was asked to take 325 mg of aspirin. Denies any chest discomfort or shortness of breath with exertion. Denies any orthopnea/PND/lower extremity edema. Notes occasional episodes of dizziness.. Normotensive in clinic today. Past Medical History Past Medical History: Diagnosis Date Callus of foot 05/03/2023 Cataract GERD (gastroesophageal reflux disease) HL (hearing loss) Hypertension Personal history of other diseases of the nervous system and sense organs History of cataract Unspecified visual disturbance Visual aura Past Surgical History Past Surgical History: Procedure Laterality Date CARDIAC CATHETERIZATION CATARACT EXTRACTION 04/12/2017 Cataract Surgery CIRCUMCISION, PRIMARY COLONOSCOPY 04/12/2017 Colonoscopy (Fiberoptic) HERNIA REPAIR 04/12/2017 Inguinal Hernia Repair JOINT REPLACEMENT OTHER SURGICAL HISTORY 04/12/2017 History Of Prior Surgery OTHER SURGICAL HISTORY 04/26/2022 Skin biopsy OTHER SURGICAL HISTORY 08/30/2021 Shoulder surgery OTHER SURGICAL HISTORY 08/30/2021 Hip replacement TONSILLECTOMY 04/12/2017 Tonsillectomy With Adenoidectomy VASECTOMY WISDOM TOOTH EXTRACTION Medications Current Outpatient Medications on File Prior to Visit Medication Sig Dispense Refill alfuzosin (Uroxatral) 10 mg 24 hr tablet TAKE 1 TABLET BY MOUTH ONCE DAILY DO NOT CRUSH, CHEW, OR SPLIT 90 tablet 3 amitriptyline (Elavil) 10 mg tablet Take one tablet by mouth daily at bedtime 30 tablet 3 amLODIPine (Norvasc) 5 mg tablet Take 1 tablet (5 mg) by mouth once daily. 90 tablet 3 aspirin 325 mg tablet Take 1 tablet (325 mg) by mouth once daily. benazepril (Lotensin) 40 mg tablet Take 1 tablet (40 mg) by mouth once daily. 90 tablet 3 escitalopram (Lexapro) 5 mg tablet Take 1 tablet (5 mg) by mouth once daily. 30 tablet 11 folic acid (Folvite) 1 mg tablet Take 2 Tablet(s) Oral every day 180 tablet 2 methotrexate (Trexall) 2.5 mg tablet Take 8 tablets (20 mg total) by mouth 1 (one) time per week. metoprolol tartrate (Lopressor) 25 mg tablet Take 1 tablet (25 mg) by mouth 2 times a day. 180 tablet 3 multivitamin tablet Take 1 tablet by mouth once daily. omeprazole (PriLOSEC) [address] capsule Take 1 capsule (40 mg) by mouth once daily in the morning. Take before meals. 90 capsule 3 pravastatin (Pravachol) 40 mg tablet Take 1 tablet (40 mg) by mouth once daily at bedtime. 90 tablet 3 [] folic acid (Folvite) 1 mg tablet TAKE 2 TABLETS BY MOUTH EVERY DAY 180 tablet 2 [DISCONTINUED] alfuzosin (UroxatraL) 10 mg 24 hr tablet Take 1 tablet (10 mg) by mouth once daily. Do not crush, chew, or split. 90 tablet 3 No current facility-administered medications on file prior to visit. Allergies No Known Allergies Social History Social History Tobacco Use Smoking status: Former Current packs/day: 0.00 Types: Cigarettes, Pipe Quit date: 04/22/1962 Years since quittin.2 Passive exposure: Past Smokeless tobacco: Never Vaping Use Vaping status: Never Used Substance Use Topics Alcohol use: Not Currently Drug use: Never Family History Family History Problem Relation Name Age of Onset Heart murmur Mother [facility] Hyperlipidemia Mother [facility] Arthritis Mother [facility] Hearing loss Mother Adena Obrecht Hypertension Mother Adena Obrecht Vision loss Mother Adena Obrecht Other (CARDIAC DISORDER) Father Pneumonia Father Physical Examination Vitals: BP 126/62 (BP Location: Right arm, Patient Position: Sitting) Pulse 63 Ht 1.676 m (5' 6) Wt 67.9 kg (149 lb 11.2 oz) SpO2 96% BMI 24.16 kg/m General: awake, alert and oriented. No acute distress. Skin: Skin is warm, dry and intact without rashes or lesions. Appropriate color for ethnicity. Nailbeds pink with no cyanosis or clubbing HEENT: normocephalic, atraumatic; conjunctivae are clear without exudates or hemorrhage. Sclera is non-icteric. Eyelids are normal in appearance without swelling or lesions. Hearing intact. Nares arepatent bilaterally. Moist mucous membranes. Cardiovascular: Regular. No murmurs, gallops, or rubs are auscultated. S1 and S2 are heard and are of normal intensity. No JVD, no carotid bruits Respiratory: Thorax symmetric. CTAB, breath sounds vesicular. No crackles, wheezes or ronchi. Gastrointestinal: soft, non-distended, BS + x 4 Genitourinary: exam deferred Musculoskeletal: moves all extremities Extremities: pulses palpable bilaterally; no swelling or erythema; no edema Neurological: alert & oriented x 3; no focal deficits Psychiatric: appropriate mood and affect Labs/Imaging/Procedures Lab Results Component Value Date HGB 12.9 (L) 05/13/2024 HGB 13.0 (L) 03/24/2024 HGB 14.8 12/07/2023 PLT 266 05/13/2024 WBC 9.9 05/13/2024 NA 138 05/13/2024 K 4.4 05/13/2024 CREATININE 0.99 05/13/2024 CREATININE 0.90 03/24/2024 CREATININE 0.93 12/07/2023 BUN 26 (H) 05/13/2024 CALCIUM 9.0 05/13/2024 INR 1.1 11/15/2023 BNP 108 (H) 11/11/2023 TROPHS 6 12/07/2023 TROPHS 5 11/15/2023 TROPHS 4 11/15/2023 LDLF 75 04/30/2023 No echocardiogram results found for the past 12 months Vascular US [place] [address] [phone], Vascular Lab Report [facility] US AORTA ILIAC DUPLEX COMPLETE Patient Name: FAWN CAMERON Reading Physician: [id number] Miller Abdalla MD, SILVANA Study Date: 06/17/2024 Ordering Provider: [id number] DON BARRERA MRN/PID: [id number] Fellow: Technologist: Annamaria Cornejo RVT/AB Date of /Age: 5 1935 / 89 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: Gender: M Admission Status: Outpatient Location Performed: [facility] Diagnosis/ICD: Abdominal aortic aneurysm, without rupture, unspecified-I71.40 CPT Codes: 89388 Duplex Aorta/IVC/Iliac/Bypass Graft CONCLUSIONS: Aorta/Common Iliac Arteries/IVC: 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A medium amount of mural thrombus is noted within the aneurysm. Mid and Distal AAA seen as follows; MID: 3.8 x 3.2 x 3.5cm DISTAL: 3.2 x 3.1 x 3.0cm Previous maximal diameter distally was 3.6cm in 2021. Imaging & Doppler Findings: AORTA AP Lateral PSV Proximal 2.10 cm 2.10 cm 77.1 cm/s Mid 3.20 cm 3.80 cm 81.9 cm/s Distal 3.10 cm 3.20 cm 43.3 cm/s RIGHT AP Lateral PSV LAUREN Proximal 1.40 cm 1.30 cm 176.00 cm/s LEFT AP Lateral PSV LAUREN Proximal 1.40 cm 1.30 cm 142.00 cm/s [id number] Miller Abdalla MD, SILVANA Final Impression Fawn Cameron is a 89 y.o. male with a medical history of coronary artery disease, hypertension, previous TIA, here to establish care: Problem #1 history of coronary artery disease -Per notes he has a history of near total occlusion of his RCA that has been conservatively managedin the past with EECP and medications (diagnosed in 2007; confirmed on repeat angiogram 2010). No prior history of stents or open heart surgery. Problem #2 hypertension -Current medications include benazepril 40 mg daily, Lopressor 25 mg twice daily Problem #3 previous history of TIA -Due to a history of TIA he was asked to take 325 mg of aspirin. Plan: -Currently doing well. CCS class I -Continue current medications; LDL is minimally above goal (75 mg/dL April 30, 2023). -Overall he is doing well; however these infrequent episodes of dizziness seem to occur without anydiagnosis. It does not seem like he has had recent echocardiogram; will perform 1 -RTC Otoniel Salcedo MD Advanced Heart Failure/Transplant Cardiology Cardio-Oncology [facility] [place] documented in this [facility] Work Phone: 1(236) 192-709208-16-2024 NotePatient is a pleasant 89-year-old male who comes in today for introduced arterial disease with nail care. His geriatric care and primary care is managed by Dr. Don Barrera. Physical Vascular: DP pulses are palpable 2 out of 4 bilaterally. PT pulses are nonpalpable bilaterally with +1 edema to the ankle and foot. Derm: Skin is shiny atrophic dysvascular with absence of hair growth. Capillary refill time is greater than 5 seconds to distal digits. Nails 39997 left foot nails 25645 right foot are elongated thickened mycotic crumbling and dystrophic. Neuro: Light touch is normal Babinski's is normal. 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 -At this time is eligible for nail care in light of his arterial disease age induced Procedure: After timeout consults performed, sharply debrided and debulked in height and length 10 onychomycotic nails with a sharp pair of nail nippers consistent with a q8 modifier. -Follow-up in 3 months for foot nail care AUTHENTICATED BY ELADIO KINGSLEY JR., ON 06/06/2024 08:21:01[facility]08-16-2024 History of Present illness Narrative* Eladio Kingsley Jr., DPM - 06/06/2024 8:10 AM EDT Patient is a pleasant 89-year-old male who comes in today for introduced arterial disease with nailcare. His geriatric care and primary care is managed by Dr. Don Barrera. Physical Vascular: DP pulses are palpable 2 out of 4 bilaterally. PT pulses are nonpalpable bilaterally with+1 edema to the ankle and foot. Derm: Skin is shiny atrophic dysvascular with absence of hair growth. Capillary refill time is greater than 5 seconds to distal digits. Nails 94930 left foot nails 75818 right foot are elongated thickened mycotic crumbling and dystrophic. Neuro: Light touch is normal Babinski's is normal. 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 -At this time is eligible for nail care in light of his arterial disease age induced Procedure: After timeout consults performed, sharply debrided and debulked in height and length 10 onychomycotic nails with a sharp pair of nail nippers consistent with a q8 modifier. -Follow-up in 3 months for foot nail care documented in this [id number] Instructions* Patient Instructions* Delta Bangura MD - 03/05/2024 10:03 AM EDT Please monitor each eye daily with Amsler Grid. AREDS 2 Vitamins are available over the counter at any drug store. Follow up with Dr. Soria for updated refraction and glasses. Return here in 1 year Patient was instructed to call the office ([phone]) immediately upon noticing flashes of light, increase in floaters, or changes in vision. If you have any questions please contact our office at [phone]. After office hours or on the weekend, please call Dr. Bangura on his cell phone at [phone]. [facility] NoteDate of Procedure 03/05/2024. City Driver Information Chief Underwriter: TK. Interpretation Right Eye Normal without fluid. Findings include Drusen, RPE Irregularity. Left Eye Abnormal foveal contour. Findings include Drusen, Epiretinal membrane, RPE Irregularity. Interval Change Right Eye Stable. Left Eye Stable.[id number] History of Present illness Narrative* Delta Bangura MD - 03/05/2024 9:42 AM EDT ASSESSMENT/PLAN: 1. Nonexudative age-related macular degeneration, bilateral, early dry stage - ICD9: 362.51, ICD10:H35.3131 (primary diagnosis) Please monitor each eye daily with Amsler Grid. AREDS 2 Vitamins are available over the counter at any drug store. -Monitor for progression -Patient to follow up with Dr. Soria for updated refraction and glasses 2. Epiretinal membrane (ERM) of left eye - ICD9: 362.56, ICD10: H35.372 -Patient was given both written and verbal information on flashes and floaters. Patient was instructed to call the office ([phone]) immediately upon noticing flashes of light, increase in floaters, or changes in vision. -Monitor for progression 3. Pseudophakia of both eyes - ICD9: V43.1, ICD10: Z96.1 -Intraocular lens well centered, both eyes 4. Dry eye syndrome of both eyes - ICD9: 375.15, ICD10: H04.123 -Continue using Blink artificial tears 3 times a day in both eyes 5. 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 Essential hypertension - ICD9: 401.9, ICD10: I10 7. Hypercholesteremia - ICD9: 272.0, ICD10: E78.00 8. Anxiety - ICD9: 300.00, ICD10: F41.9 -Continue care with primary care physician I have confirmed and edited as necessary the relevant HPI, ophthalmic history, ROS, and the neuro exam findings as obtained by others. I have seen and examined Fawn Cameron. I have discussed the case and the management of this patient's care with the Resident/Fellow, if applicable. I also have reviewed and agree with the assessment and plan as stated above and agree withall of its relevant components. [facility] History of Present illness Narrative* Eladio Kingsley Jr., DPM - 02/29/2024 8:27 AM EDT Patient is a pleasant 88-year-old male who comes in today for introduced arterial disease with nailcare. His geriatric care and primary care is managed by Dr. Don Barrera. Physical Vascular: DP pulses are palpable 2 out of 4 bilaterally. PT pulses are nonpalpable bilaterally with+1 edema to the ankle and foot. Derm: Skin is shiny atrophic dysvascular with absence of hair growth. Capillary refill time is greater than 5 seconds to distal digits. Nails 74046 left foot nails 37644 right foot are elongated thickened mycotic crumbling and dystrophic. Neuro: Light touch is normal Babinski's is normal. 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 -At this time is eligible for nail care in light of his arterial disease age induced Procedure: After timeout consults performed, sharply debrided and debulked in height and length 10 onychomycotic nails with a sharp pair of nail nippers consistent with a q8 modifier. -Follow-up in 3 months for foot nail care documented in this [id number] History of Present illness Narrative* Sage Kwon MD - 02/12/2024 9:56 AM EDT New Patient Visit [facility] [address], [address], [place] [address] (office) Date of service: 02/12/2024 ID: Fawn Cameron, 88 y.o., male; : 1935 Chief Concerns and reason for consult: Fawn Cameron is a 88 y.o. man who comes for consultation regarding Migraine (Ocular migraine since 1987./ with patient.) History of Present Illness: Mr. Cameron has a history of ocular migraines who presents for evaluation of episodes of unsteadiness/lightheadedness that have occurred over the past 6 months. The patient reports that over the past 6 months, he has had approximately 1 episode a month lastingabout half an hour where he has episodes of lightheadedness, with some unsteadiness while walking. It takes about 10 to 20 minutes for symptoms to peak from onset. There are no clear provoking or tr iggering factors. These can occur at any position with sitting or standing. The symptoms slowly started to dissipate, and usually resolve within half an hour to an hour. He denies specifically any room spinning sensation. There is no associated headache, visual symptoms, double vision, difficultywith talking or swallowing, falls or loss of consciousness, focal weakness numbness or tingling sensations. The patient does report occasional orthostatic symptoms, however reports that these are different from the episodes that he had. The orthostatic dizziness symptoms occur in the context of standing upfrom a recumbent or sitting position, usually with unsteadiness and lightheadedness seen immediately after standing for a few seconds. The patient does have a history of visual migraines, that was reportedly diagnosed in 1987. Since then he has several episodes every month where he has small black dots, or lights, mostly in his leftfield of vision, that is present even with 1 eye closed. He does not usually have headaches. The symptoms usually resolve after several minutes. He has had evaluations in the past and was eventually diagnosed with ocular migraines. An MRI was performed recently in November 2023 (only report available, images not available for review) which revealed no acute infarcts intracranial masses or midline shift. There was moderate parenchymal volume loss and nonspecific white matter signal abnormalities. No significant changes were seen compared to previous MRI from 01/25/2021, per report. Neurological ROS: negative for - behavioral changes, confusion, gait disturbance, memory loss, numbness/tingling, seizures, speech problems, or tremors Past medical history: has a past medical history of Achilles tendinitis of left lower extremity, CAD (coronary artery disease), Callus of foot, Chest pain, Complication of anesthesia, GERD (gastroesophageal reflux disease), Hernia of abdominal wall, History of cardiac cath, [place] (hard of hearing), Hyperlipidemia, Hypertension, HANNAH (juvenile idiopathic arthritis), polyarthritis, rheumat factor neg ([facility]), Nail disorder, OM (onychomycosis), JOSEFA (obstructive sleep apnea), Osteoarthritis, PAD (peripheral artery disease) ([facility]), and TIA (transient ischemic attack) (12/2020). Past surgical history: has a past surgical history that includes EECP; Hernia repair; Cardiac catheterization (05/29/2011); Cardiac catheterization (03/09/2008); Renal Arteriogram; Cardiac catheterization (12/27/2005); Cataract extraction, bilateral; ARTHROPLASTY HIP ROBOTIC (Left, 09/10/2019); Shoulder Repair ([place]) (Left, 2019); and basal cell carcenoma. Social history: reports that he has quit smoking. His smoking use included cigarettes. He has neverused smokeless tobacco. He reports that he does not drink alcohol and does not use drugs. Family history:family history includes Cardiac arrest in his father and mother; Heart attack in hismother; Rheum arthritis in his mother. Medications: Current Outpatient Medications: alfuzosin (UROXATRAL) 10 mg 24 hr tablet, Take 1 (one) tablet (10 mg total) by mouth daily AT PM .,Disp: , Rfl: amitriptyline (ELAVIL) 10 MG tablet, Take 1 (one) tablet (10 mg total) by mouth nightly ., Disp: , Rfl: amLODIPine (NORVASC) 5 MG tablet, Take 1 (one) tablet (5 mg total) by mouth daily ., Disp: , Rfl: aspirin 325 MG tablet, Take 1 (one) tablet (325 mg total) by mouth daily ., Disp: , Rfl: benazepril (LOTENSIN) 40 MG tablet, Take 1 (one) tablet (40 mg total) by mouth daily ., Disp: , Rfl: escitalopram oxalate (LEXAPRO) 5 MG tablet, Take 1 (one) tablet (5 mg total) by mouth daily ., Disp: , Rfl: folic acid (FOLVITE) 1 MG tablet, Take 2 (two) tablets (2 mg total) by mouth daily ., Disp: , Rfl: methotrexate 2.5 MG tablet, Take 7 mg by mouth once a week ., Disp: , Rfl: metoprolol tartrate (LOPRESSOR) 25 MG tablet, TAKE 1 TABLET BY MOUTH TWICE DAILY, Disp: 180 tablet,Rfl: 0 multivitamin (THERAGRAN) per tablet, Take 1 (one) tablet by mouth daily ., Disp: , Rfl: omeprazole (PRILOSEC) 20 MG capsule, Take 2 (two) capsules (40 mg total) by mouth daily ., Disp: , Rfl: pravastatin (PRAVACHOL) 40 MG tablet, Take 1 (one) tablet (40 mg total) by mouth nightly ., Disp: ,Rfl: nitroGLYCERIN (NITROSTAT) 0.4 MG SL tablet, Place 1 (one) tablet (0.4 mg total) under the tongue every 5 (five) minutes as needed ., Disp: , Rfl: Paxlovid, EUA, 300 mg (150 mg x 2)-100 mg tablet therapy pack, , Disp: , Rfl: sucralfate (CARAFATE) 1 gram tablet, Take 1 (one) tablet (1 g total) by mouth 4 (four) times a day before meals and nightly ., Disp: , Rfl: Allergies: No Known Allergies Physical Examination: Vitals signs :His weight is 68.3 kg (150 lb 8 oz). His blood pressure is 138/73 and his pulse is 70. His respiration is 16 and oxygen saturation is 97%. GENERAL EXAM: The patient is in no apparent distress. Neurological Examination Mental status: awake and alert; oriented to person, place, year, and month; good attention. Normal mood and affect. Normal insight into condition. Speech/language: fluent; comprehension intact; object naming intact; repetition intact Cranial nerves: CN II: Visual estrella intact to confrontation. PERRL. Normal conjunctivae and lids. evp global product leadership III, IV and : extraocular movements intact. No nystagmus. CN V: Facial sensation is intact to light touch. CN VII: Facial strength normal with symmetric movement. CN VIII: Hearing is grossly intact. CN IX and X: Soft palate elevates symmetrically in the midline CN XI: Shoulder shrug and sternocleidomastoid strength (R/L) 5/5 CN XII: Tongue is midline with normal movement; no fasciculations. Motor: Normal bulk and tone. No pronator drift. SA EE EF WE WF DI HF KE KF DF PF Right 5 5 5 5 5 5 5 5 5 5 5 Left 5 5 5 5 5 5 5 5 5 5 5 Reflexes: Right Left Comments Biceps 2 2 Triceps 2 2 Brachioradialis 2 2 Patellar 1 1 Achilles 0 0 Babinski Down Down Coordination: [id number] intact bilaterally. Mild in hands physiologic tremors in bilateral upper extremities Sensation: Comments Light touch Intact throughout Vibration 2 to 3 seconds at the toe, 7-8 seconds at medial malleolus Temperature Decreased at bilateral feet proprioception Absent at great toe Gait: Slightly stooped posture, antalgic gait somewhat at initiation but gets better as he walks. Normal stride length, arm swing, and base width. Review of images/other data: MRI brain 12/07/2023 No acute infarct, intracranial mass effect or midline shift. 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 Assessment:/Plan: Fawn Cameron is a 88 y.o. male with history of ocular migraines who presents for evaluation ofepisodes of unsteadiness/lightheadedness that have occurred over the past 6 months. Neurologic examination was significant only for mild length dependent sensory neuropathy. The symptoms are rather nonspecific, and can be from neurologic versus cardiogenic etiology. I would recommend evaluation by cardiology with at least a 30-day Holter monitor to rule out arrhythmias being the cause of his symptoms. From a neurologic perspective considering he has a history of ocularmigraines, it is possible that he has symptoms from a vestibular migraine-with factors that supportthis include-the slow gradual onset of symptoms peaking approximately 10 to 20 minutes after onset,the length of symptoms (up to an hour), existing diagnosis of visual migraines. The patient was started on amitriptyline 10 mg daily, in early December 2023. He has not had any further episodes since, and has tolerated the medication well. He can continue with the medication at this time, considering how well he tolerates, however we discussed possible side effects of this medication and would have a low threshold to withdrawal or consider an alternate migraine preventive medication. These include if orthostatic dizziness symptoms (which the patient reports are mild) worsen, or if any arrhythmia is detected-since TCA can potentially worsen them. While I do not have vessel imaging of the brain, in some cases vertebrobasilar insufficiency can cause transient unsteadiness, particularly in the context of orthostatic provocation, however carotid artery duplex ultrasound showed bilateral vertebral artery that were patent with anterograde flow, further his symptoms are not maximal at onset which would be expected from vertebrobasilar insufficiency. Moreover he does not have other symptoms that would typically occur with such a condition. It is possible that he has coexisting orthostatic dizziness, as can happen at his age, and conservative measures were advised including performing gradual staged movements with postural change and adequate hydration were advised. We will hold from ordering any further tests at this time. 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 Follow up: Return in about 6 months (around 08/13/2024). Sage Kwon MD [employer] Neurolog[facility]. Timed code: 68 minutes Includes preparation to see the patient (reviewing previous history, exam, test, procedure, and medications); Obtaining history from the patient/family/caregivers; performing evaluation and examination; ordering medications, tests, or procedures; referring and communicating with other healthcare professionals; counseling and education of the patient/family/caregiver; independently interpreting results (Tests, labs, imaging) and communicating results to the patient/family/caregiver; coordination of care; documenting clinical information in the electronic and other health records. documented in this [id number] Emergency department Note* Celso Cabezas, - 12/07/2023 9:47 AM ESTAssociated Order(s): ECG 12 lead HPI No chief complaint on file. Limitations to History: None HPI: 88-year-old male presents with concern for dizziness. Patient has been evaluated multiple times in the past for this issue. Describes it as more of a spinning sensation. Denies any lightheadedness or presyncope. States that he does have a slight headache. Denies any vision change, neck pain, nausea, vomiting, abdominal pain, urinary symptoms. Additional History Obtained from: at the bedside. Physical Exam: VS: As documented in the triage note and EMR flowsheet from this visit were reviewed. Appearance: Alert. cooperative, in no acute distress. Skin: Intact, dry skin, no lesions, rash, petechiae or purpura. Eyes: PERRLA, EOMs intact, Conjunctiva pink with no redness or exudates. HENT: Normocephalic, atraumatic. Nares patent. No intraoral lesions. Neck: Supple, without meningismus. Trachea at midline. No lymphadenopathy. Pulmonary: Clear bilaterally with good chest wall excursion. No rales, rhonchi or wheezing. No accessory muscle use or stridor. Cardiac: Regular rate and rhythm, no rubs, murmurs, or gallops. Abdomen: Abdomen is soft, nontender, and nondistended. No palpable organomegaly. No rebound or guarding. No CVA tenderness. Nonsurgical abdomen. Genitourinary: Exam deferred. Musculoskeletal: Full range of motion. Pulses full and equal. No cyanosis, clubbing, or edema. Neurological: Cranial nerves are grossly intact, grossly normal sensation, no weakness, no focal findings identified. Psychiatric: Appropriate mood and affect. No data recorded Patient History Past Medical History: Diagnosis Date Callus of foot 05/03/2023 Cataract GERD (gastroesophageal reflux disease) HL (hearing loss) Hypertension Personal history of other diseases of the nervous system and sense organs History of cataract Unspecified visual disturbance Visual aura Past Surgical History: Procedure Laterality Date CARDIAC CATHETERIZATION CATARACT EXTRACTION 04/12/2017 Cataract Surgery CIRCUMCISION, PRIMARY COLONOSCOPY 04/12/2017 Colonoscopy (Fiberoptic) HERNIA REPAIR 04/12/2017 Inguinal Hernia Repair JOINT REPLACEMENT OTHER SURGICAL HISTORY 04/12/2017 History Of Prior Surgery OTHER SURGICAL HISTORY 04/26/2022 Skin biopsy OTHER SURGICAL HISTORY 08/30/2021 Shoulder surgery OTHER SURGICAL HISTORY 08/30/2021 Hip replacement TONSILLECTOMY 04/12/2017 Tonsillectomy With Adenoidectomy VASECTOMY WISDOM TOOTH EXTRACTION Family History Problem Relation Name Age of Onset Heart murmur Mother Cierra Obrecjorje Hyperlipidemia Mother Cierra Obrecjorje Arthritis Mother Cierra Obshanika Hearing loss Mother Cierra Obrecjorje Hypertension Mother Cierra Obshanika Vision loss Mother Cierra Obshanika Other (CARDIAC DISORDER) Father Pneumonia Father Social History Tobacco Use Smoking status: Former Packs/day: 0.00 Years: 0.50 Additional pack years: 0.00 Total pack years: 0.00 Types: Cigarettes, Pipe Quit date: 10/22/1962 Years since quittin.1 Smokeless tobacco: Never Vaping Use Vaping Use: Never used Substance Use Topics Alcohol use: Not Currently Drug use: Never Physical Exam ED Triage Vitals Temp Pulse Resp BP -- -- -- -- SpO2 Temp src Heart Rate Source Patient Position -- -- -- -- BP Location FiO2 (%) -- -- Physical Exam ED Course & MDM Diagnoses as of 12/07/23 1248 Dizziness Medical Decision Making Labs Reviewed CBC WITH AUTO DIFFERENTIAL - Abnormal WBC 10.5 nRBC 0.0 RBC 4.38 (*) Hemoglobin 14.8 Hematocrit 44.5 MCV 102 (*) MCH 33.8 MCHC 33.3 RDW 12.9 Platelets 298 Neutrophils % 80.3 Immature Granulocytes %, Automated 0.6 Lymphocytes % 9.2 Monocytes % 8.3 Eosinophils % 1.0 Basophils % 0.6 Neutrophils Absolute 8.44 (*) Immature Granulocytes Absolute, Au* 0.06 Lymphocytes Absolute 0.97 Monocytes Absolute 0.87 (*) Eosinophils Absolute 0.11 Basophils Absolute 0.06 COMPREHENSIVE METABOLIC PANEL - Abnormal Glucose 96 Sodium 135 (*) Potassium 3.9 Chloride 102 Bicarbonate 24 Anion Gap 13 Urea Nitrogen 22 Creatinine 0.93 eGFR 79 Calcium 8.9 Albumin 4.4 Alkaline Phosphatase 76 Total Protein 6.6 AST 17 Bilirubin, Total 0.6 ALT 15 TROPONIN I, HIGH SENSITIVITY - Normal Troponin I, High Sensitivity 6 Narrative: Less than 99th percentile of normal range cutoff- Female and children under 18 years old <14 ng/L; Male <21 ng/L: Negative Repeat testing should be performed if clinically indicated. Female and children under 18 years old 14-50 ng/L; Male 21-50 ng/L: Consistent with possible cardiac damage and possible increased clinical risk. Serial measurements may help to assess extent of myocardial damage. >50 ng/L: Consistent with cardiac damage, increased clinical risk and myocardial infarction. Serial measurements may help assess extent of myocardial damage. NOTE: Children less than 1 year old may have higher baseline troponin levels and results should be interpreted in conjunction with the overall clinical context. NOTE: Troponin I testing is performed using a different testing methodology at [facility] than at other [facility]. Direct result comparisons should only be made within the same method. URINALYSIS WITH REFLEX CULTURE AND MICROSCOPIC - Normal Color, Urine Straw Appearance, Urine Clear Specific Mabie, Urine 1.006 pH, Urine 7.0 Protein, Urine NEGATIVE Glucose, Urine NEGATIVE Blood, Urine NEGATIVE Ketones, Urine NEGATIVE Bilirubin, Urine NEGATIVE Urobilinogen, Urine <2.0 Nitrite, Urine NEGATIVE Leukocyte Esterase, Urine NEGATIVE URINALYSIS WITH REFLEX CULTURE AND MICROSCOPIC Narrative: The following orders were created for panel order Urinalysis with Reflex Culture and Microscopic. Procedure Abnormality Status --------- ------ Urinalysis with Reflex C...[[id number]] Normal Final result Extra Urine Callaway Tube[[id number]] In process Please view results for these tests on the individual orders. EXTRA URINE CALLAWAY TUBE MR brain wo IV contrast Final Result No acute infarct, intracranial mass effect or midline shift. 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 I personally reviewed the images/study and I agree with the findings as stated by Dr. Cabrera. MACRO: None Signed by: Kvng Meléndez 12/07/2023 12:24 PM Dictation workstation: [id number] Medical Decision Making: Patient appears well nontoxic. Vital signs within normal limits. No focal deficit. Lab work unremarkable. MRI performed given this is recurrent issue. This is negative for acute process. Patient was given some more meclizine for home and will be referred to ENT. Stable at time of discharge. Differential Diagnoses Considered: Volume depletion, electrolyte abnormality, intracranial process,BPPV Escalation of Care: Appropriate for discharge and follow-up with primary care and ENT. Prescription Drug Consideration: Oral meclizine. Procedure ECG 12 lead Performed by: Celso Cabezas DO Authorized by: Celso Cabezas DO ECG interpreted by ED Physician in the absence of a hides soaker: yes Comments: EKG interpreted by Dr. Celso Cabezas: Normal sinus rhythm at 69 bpm. [place] interval 170 ms. QTc of437 ms. PACs. Celso Cabezas DO 12/07/23 1250 documented in this [facility] Work Phone: [phone]) 455-870102-16-2024 Physician Emergency department Note* Celso Cabezas DO - 12/07/2023 9:47 AM ESTAssociated Order(s): ECG 12 lead HPI No chief complaint on file. Limitations to History: None HPI: 88-year-old male presents with concern for dizziness. Patient has been evaluated multiple times in the past for this issue. Describes it as more of a spinning sensation. Denies any lightheadedness or presyncope. States that he does have a slight headache. Denies any vision change, neck pain, nausea, vomiting, abdominal pain, urinary symptoms. Additional History Obtained from: at the bedside. Physical Exam: VS: As documented in the triage note and EMR flowsheet from this visit were reviewed. Appearance: Alert. cooperative, in no acute distress. Skin: Intact, dry skin, no lesions, rash, petechiae or purpura. Eyes: PERRLA, EOMs intact, Conjunctiva pink with no redness or exudates. HENT: Normocephalic, atraumatic. Nares patent. No intraoral lesions. Neck: Supple, without meningismus. Trachea at midline. No lymphadenopathy. Pulmonary: Clear bilaterally with good chest wall excursion. No rales, rhonchi or wheezing. No accessory muscle use or stridor. Cardiac: Regular rate and rhythm, no rubs, murmurs, or gallops. Abdomen: Abdomen is soft, nontender, and nondistended. No palpable organomegaly. No rebound or guarding. No CVA tenderness. Nonsurgical abdomen. Genitourinary: Exam deferred. Musculoskeletal: Full range of motion. Pulses full and equal. No cyanosis, clubbing, or edema. Neurological: Cranial nerves are grossly intact, grossly normal sensation, no weakness, no focal findings identified. Psychiatric: Appropriate mood and affect. No data recorded Patient History Past Medical History: Diagnosis Date Callus of foot 05/03/2023 Cataract GERD (gastroesophageal reflux disease) HL (hearing loss) Hypertension Personal history of other diseases of the nervous system and sense organs History of cataract Unspecified visual disturbance Visual aura Past Surgical History: Procedure Laterality Date CARDIAC CATHETERIZATION CATARACT EXTRACTION 04/12/2017 Cataract Surgery CIRCUMCISION, PRIMARY COLONOSCOPY 04/12/2017 Colonoscopy (Fiberoptic) HERNIA REPAIR 04/12/2017 Inguinal Hernia Repair JOINT REPLACEMENT OTHER SURGICAL HISTORY 04/12/2017 History Of Prior Surgery OTHER SURGICAL HISTORY 04/26/2022 Skin biopsy OTHER SURGICAL HISTORY 08/30/2021 Shoulder surgery OTHER SURGICAL HISTORY 08/30/2021 Hip replacement TONSILLECTOMY 04/12/2017 Tonsillectomy With Adenoidectomy VASECTOMY WISDOM TOOTH EXTRACTION Family History Problem Relation Name Age of Onset Heart murmur Mother Adena Obrecht Hyperlipidemia Mother Adena Obrecht Arthritis Mother Adena Obrecht Hearing loss Mother Adena Obrecht Hypertension Mother Adena Obrecht Vision loss Mother Adena Obrecht Other (CARDIAC DISORDER) Father Pneumonia Father Social History Tobacco Use Smoking status: Former Packs/day: 0.00 Years: 0.50 Additional pack years: 0.00 Total pack years: 0.00 Types: Cigarettes, Pipe Quit date: 10/22/1962 Years since quittin.1 Smokeless tobacco: Never Vaping Use Vaping Use: Never used Substance Use Topics Alcohol use: Not Currently Drug use: Never Physical Exam ED Triage Vitals Temp Pulse Resp BP -- -- -- -- SpO2 Temp src Heart Rate Source Patient Position -- -- -- -- BP Location FiO2 (%) -- -- Physical Exam ED Course & MDM Diagnoses as of 12/07/23 1248 Dizziness Medical Decision Making Labs Reviewed CBC WITH AUTO DIFFERENTIAL - Abnormal WBC 10.5 nRBC 0.0 RBC 4.38 (*) Hemoglobin 14.8 Hematocrit 44.5 MCV 102 (*) MCH 33.8 MCHC 33.3 RDW 12.9 Platelets 298 Neutrophils % 80.3 Immature Granulocytes %, Automated 0.6 Lymphocytes % 9.2 Monocytes % 8.3 Eosinophils % 1.0 Basophils % 0.6 Neutrophils Absolute 8.44 (*) Immature Granulocytes Absolute, Au* 0.06 Lymphocytes Absolute 0.97 Monocytes Absolute 0.87 (*) Eosinophils Absolute 0.11 Basophils Absolute 0.06 COMPREHENSIVE METABOLIC PANEL - Abnormal Glucose 96 Sodium 135 (*) Potassium 3.9 Chloride 102 Bicarbonate 24 Anion Gap 13 Urea Nitrogen 22 Creatinine 0.93 eGFR 79 Calcium 8.9 Albumin 4.4 Alkaline Phosphatase 76 Total Protein 6.6 AST 17 Bilirubin, Total 0.6 ALT 15 TROPONIN I, HIGH SENSITIVITY - Normal Troponin I, High Sensitivity 6 Narrative: Less than 99th percentile of normal range cutoff- Female and children under 18 years old <14 ng/L; Male <21 ng/L: Negative Repeat testing should be performed if clinically indicated. Female and children under 18 years old 14-50 ng/L; Male 21-50 ng/L: Consistent with possible cardiac damage and possible increased clinical risk. Serial measurements may help to assess extent of myocardial damage. >50 ng/L: Consistent with cardiac damage, increased clinical risk and myocardial infarction. Serial measurements may help assess extent of myocardial damage. NOTE: Children less than 1 year old may have higher baseline troponin levels and results should be interpreted in conjunction with the overall clinical context. NOTE: Troponin I testing is performed using a different testing methodology at [facility] than at other [facility]. Direct result comparisons should only be made within the same method. URINALYSIS WITH REFLEX CULTURE AND MICROSCOPIC - Normal Color, Urine Straw Appearance, Urine Clear Specific Mabie, Urine 1.006 pH, Urine 7.0 Protein, Urine NEGATIVE Glucose, Urine NEGATIVE Blood, Urine NEGATIVE Ketones, Urine NEGATIVE Bilirubin, Urine NEGATIVE Urobilinogen, Urine <2.0 Nitrite, Urine NEGATIVE Leukocyte Esterase, Urine NEGATIVE URINALYSIS WITH REFLEX CULTURE AND MICROSCOPIC Narrative: The following orders were created for panel order Urinalysis with Reflex Culture and Microscopic. Procedure Abnormality Status --------- ------ Urinalysis with Reflex C...[[id number]] Normal Final result Extra Urine Callaway Tube[[id number]] In process Please view results for these tests on the individual orders. EXTRA URINE CALLAWAY TUBE MR brain wo IV contrast Final Result No acute infarct, intracranial mass effect or midline shift. 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 I personally reviewed the images/study and I agree with the findings as stated by Dr. Cabrera. MACRO: None Signed by: Kvng Meléndez 12/07/2023 12:24 PM Dictation workstation: [id number] Medical Decision Making: Patient appears well nontoxic. Vital signs within normal limits. No focal deficit. Lab work unremarkable. MRI performed given this is recurrent issue. This is negative for acute process. Patient was given some more meclizine for home and will be referred to ENT. Stable at time of discharge. Differential Diagnoses Considered: Volume depletion, electrolyte abnormality, intracranial process,BPPV Escalation of Care: Appropriate for discharge and follow-up with primary care and ENT. Prescription Drug Consideration: Oral meclizine. Procedure ECG 12 lead Performed by: Celso Cabezas DO Authorized by: Celso Cabezas DO ECG interpreted by ED Physician in the absence of a hides soaker: yes Comments: EKG interpreted by Dr. Celso Cabezas: Normal sinus rhythm at 69 bpm. [place] interval 170 ms. QTc of437 ms. PACs. Celso Cabezas DO 12/07/23 1250 [facility] Work Phone: [phone] 723-210602-16-2024 Reason for referral (narrative)* Consultation (Routine) - Authorized Specialty Diagnoses / Procedures Referred By Contac t Referred To Contact Otolaryngology Celso Cabezas DO [address] [place] [address] [place] [address] Referral ID Status Reason Start Date Expiration Date Visits Requested Visits Authorized [id number] Authorized Specialty Services Required 12/07/2023 12/06/2024 1 1 * Consultation (Routine) - Authorized Specialty Diagnoses / Procedures Referred By Contrenetta t Referred To Contact Family Medicine / Primary Care Celso Cabezas, [address] [place] [address] Department of Emergency Medicine [place] [id number] Referral ID Status Reason Start Date Expiration Date Visits Requested Visits Authorized [id number] Authorized Specialty Services Required 12/07/2023 12/06/2024 1 1 [facility] Work Phone: 1([phone]) 982-183802-09-2024 History of Present illness Narrative* Eladio Kingsley Jr., ROMA - 11/30/2023 8:07 AM EST Patient is a pleasant 88-year-old male who comes in today for introduced arterial disease with nailcare. His geriatric care and primary care is managed by Dr. Don Barrera. Physical Vascular: DP pulses are palpable 2 out of 4 bilaterally. PT pulses are nonpalpable bilaterally with+1 edema to the ankle and foot. Derm: Skin is shiny atrophic dysvascular with absence of hair growth. Capillary refill time is greater than 5 seconds to distal digits. Nails 40635 left foot nails 21035 right foot are elongated thickened mycotic crumbling and dystrophic. Neuro: Light touch is normal Babinski's is normal. 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 -At this time is eligible for nail care in light of his arterial disease age induced Procedure: After timeout consults performed, sharply debrided and debulked in height and length 10 onychomycotic nails with a sharp pair of nail nippers consistent with a q8 modifier. -Follow-up in 3 months for foot nail care documented in this [id number] History of Present illness Narrative* Daysi Arenas DO - 11/15/2023 8:15 AM EST Subjective Patient ID: Fawn Campos is a 88 y.o. male who presents for Follow- up (Had esophagram on 11/01. Patient reports dysphagia with specific foods. ). CHIQUI Tenorio is seen today in follow-up. Upper GI study does confirm hiatal hernia. No mass no significant reflux symptoms controlled at this time with diet and medications. Is having occasions where he feels pressure in his retrosternal region if he eats too much of an at once but overall is improved. Review of Systems Constitutional: Negative. HENT: Negative. Eyes: Negative. Respiratory: Negative. Cardiovascular: Negative. Gastrointestinal: Negative. Endocrine: Negative. Genitourinary: Negative. Musculoskeletal: Negative. Neurological: Negative. Hematological: Negative. Psychiatric/Behavioral: Negative. Objective Physical Exam Vitals and nursing note reviewed. Constitutional: Appearance: Normal appearance. HENT: Head: Normocephalic. Mouth/Throat: Mouth: Mucous membranes are moist. Pharynx: Oropharynx is clear. Eyes: Pupils: Pupils are equal, round, and reactive to light. Cardiovascular: Rate and Rhythm: Normal rate and regular rhythm. Pulmonary: Effort: Pulmonary effort is normal. Breath sounds: Normal breath sounds. Abdominal: General: Abdomen is flat. Bowel sounds are normal. Palpations: Abdomen is soft. Musculoskeletal: General: Normal range of motion. Cervical back: Normal range of motion and neck supple. Skin: General: Skin is warm and dry. Neurological: General: No focal deficit present. Mental Status: He is alert and oriented to person, place, and time. Psychiatric: Mood and Affect: Mood normal. Behavior: Behavior normal. Assessment/Plan Diagnoses and all orders for this visit: 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 Hiatal hernia Continue long-term PPI therapy follow-up in 1 year sooner if new symptoms develop Daysi Arenas DO 11/15/23 8:27 AM [facility] Work Phone: [phone]) 343-505601-25-2024 Reason for referral (narrative)* Consultation (Routine) - Authorized Specialty Diagnoses / Procedures Referred By Foster t Referred To Contact Family Medicine / Primary Care Bhargavi Feliciano PA-C [id number] [facility] [address] Referral ID Status Reason Start Date Expiration Date Visits Requested Visits Authorized [id number] Authorized Specialty Services Required 11/15/2023 11/14/2024 1 1 [facility] Work Phone: 1([phone]) 560-298501-21-2024 Hospital Discharge instructions* Discharge Instructions* Sai Myers MD - 11/11/2023 10:19 PM EST Recommend contacting your primary care physician's office tomorrow. [facility] Work Phone: [phone] Evaluation + Plan note* Assessment & Plan Note - Don Barrera MD - 11/05/2023 12:36 PM ESTAssociated Problem(s): MARIANGEL (generalized anxiety disorder) Patient uncomfortable with anxiety, some trouble sleeping at night, able to accomplish day-to-day activities without difficulty, try low-dose sertraline. [facility] Work Phone: [phone]) [phone] Evaluation + Plan note* Assessment & Plan Note - Don Barrera MD - 11/05/2023 12:36 PM ESTAssociated Problem(s): Lumbosacral spondylosis Patient requested to see pain management again. [facility] Work Phone: [phone] 311-628801-15-2024 Miscellaneous Notes* Assessment & Plan Note - Don Barrera MD - 11/05/2023 12:36 PM ESTAssociated Problem(s): MARIANGEL (generalized anxiety disorder) Patient uncomfortable with anxiety, some trouble sleeping at night, able to accomplish day-to-day activities without difficulty, try low-dose sertraline. * Assessment & Plan Note - Don Barrera MD - 11/05/2023 12:36 PM EST Associated Problem(s): Lumbosacral spondylosis Patient requested to see pain management again. * Assessment & Plan Note - Don Barrera MD - 11/05/2023 12:35 PM EST Associated Problem(s): BPH (benign prostatic hyperplasia) Currently stable no change. * Assessment & Plan Note - Don Barrera MD - 11/05/2023 12:35 PM EST Associated Problem(s): 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 To have esophagram done tomorrow, following with gastroenterology, taking PPI twice a day, no longer taking Carafate, dysphagia depends on diet. * Assessment & Plan Note - Don Barrera MD - 11/05/2023 12:35 PM EST Associated Problem(s): Hypertension Blood pressure under good control renal function stable, no change. * Assessment & Plan Note - Don Barrera MD - 11/05/2023 12:35 PM EST Associated Problem(s): Abdominal aneurysm (CMS/HCC) Ultrasound stable within the past year. * Assessment & Plan Note - Don Barrera MD - 11/05/2023 12:35 PM EST Associated Problem(s): Hyperlipidemia Taking and tolerating pravastatin, liver function testing normal, no change. * Assessment & Plan Note - Don Barrera MD - 11/05/2023 12:34 PM EST Associated Problem(s): Inflammatory polyarthropathy (CMS/HCC) Follows with rheumatology on a regular basis. * Assessment & Plan Note - Don Barrera MD - 11/05/2023 12:34 PM EST Associated Problem(s): Peripheral arterial occlusive disease (CMS/HCC) No active signs or symptoms of claudication. Carotid ultrasound up-to-date. [facility] Work Phone: [phone]) [phone] Evaluation + Plan note* Assessment & Plan Note - Don Barrera MD - 11/05/2023 12:35 PM ESTAssociated Problem(s): BPH (benign prostatic hyperplasia) Currently stable no change. [facility] Work Phone: [phone] Evaluation + Plan note* Assessment & Plan Note - Don Barrera MD - 11/05/2023 12:35 PM ESTAssociated Problem(s): 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 To have esophagram done tomorrow, following with gastroenterology, taking PPI twice a day, no longer taking Carafate, dysphagia depends on diet. [facility] Work Phone: [phone]) 899-264501-15-2024 Evaluation + Plan note* Assessment & Plan Note - Don Barrera MD - 11/05/2023 12:35 PM ESTAssociated Problem(s): Hypertension Blood pressure under good control renal function stable, no change. [facility] Work Phone: [phone] Evaluation + Plan note* Assessment & Plan Note - Don Barrera MD - 11/05/2023 12:35 PM ESTAssociated Problem(s): Abdominal aneurysm (CMS/HCC) Ultrasound stable within the past year. [facility] Work Phone: [phone] Evaluation + Plan note* Assessment & Plan Note - Don Barrera MD - 11/05/2023 12:35 PM ESTAssociated Problem(s): Hyperlipidemia Taking and tolerating pravastatin, liver function testing normal, no change. [facility] Work Phone: [phone] 290-930201-15-2024 Evaluation + Plan note* Assessment & Plan Note - Don Barrera MD - 11/05/2023 12:34 PM ESTAssociated Problem(s): Inflammatory polyarthropathy (CMS/HCC) Follows with rheumatology on a regular basis. [facility] Work Phone: [phone] 605-848101-15-2024 Evaluation + Plan note* Assessment & Plan Note - Don Barrera MD - 11/05/2023 12:34 PM ESTAssociated Problem(s): Peripheral arterial occlusive disease (CMS/HCC) No active signs or symptoms of claudication. Carotid ultrasound up-to-date. [facility] Work Phone: [phone] 617-831201-15-2024 History of Present illness Narrative* Don Barrera MD - 11/05/2023 8:00 AM EST Subjective Patient ID: Andres Cameron is a 88 y.o. male who presents for 6 mo labs. HPI No headache, chest pain, shortness of breath, dizziness, lightheadedness, or edema Taking PPI daily without breakthrough symptoms. Reviewed dietary, caffeine, tobacco, alcohol, and NSAID use. No dyspepsia, dysphagia, reflux, melena, or abdominal pain. Seen GI in the past month, to have an esophogram tomorrow, some dysphagia (some better, depends on diet), no coughing, some hoarseness Sees rheumatology and opthalmology Nervous and anxious at times, some trouble sleeping, family history of anxiety, keeps busy, no issues with focus or concentration, off and on for a long time Shoulder pain not different, some LBP at times, had been to pain clinic in the past, had MRI in thepast, APAP helped in the past, not helping now Has visual auras, no headaches, not as frequent as prior Review of Systems Constitutional: Negative for activity change, appetite change, fatigue and unexpected weight change. HENT: Negative for ear pain, nosebleeds, rhinorrhea, sneezing and trouble swallowing. Respiratory: Negative for cough, shortness of breath and wheezing. Cardiovascular: Negative for chest pain, palpitations and leg swelling. Gastrointestinal: Negative for abdominal distention, abdominal pain, constipation, diarrhea, nauseaand vomiting. Genitourinary: Negative for difficulty urinating. Musculoskeletal: Positive for arthralgias and back pain. Negative for gait problem. Skin: Negative for rash. Neurological: Negative for dizziness, light-headedness, numbness and headaches. Hematological: Negative for adenopathy. Psychiatric/Behavioral: Positive for sleep disturbance. Negative for agitation, behavioral problems, decreased concentration and dysphoric mood. The patient is nervous/anxious. All other systems reviewed and are negative. Objective BP 130/62 Pulse 65 Ht 1.676 m (5' 6) Wt 70.9 kg (156 lb 6.4 oz) SpO2 99% BMI 25.24 kg/m Physical Exam Vitals and nursing note reviewed. Constitutional: General: He is not in acute distress. Appearance: Normal appearance. He is not toxic-appearing. HENT: Head: Normocephalic and atraumatic. Right Ear: Tympanic membrane, ear canal and external ear normal. Left Ear: Tympanic membrane, ear canal and external ear normal. Nose: Nose normal. Mouth/Throat: Mouth: Mucous membranes are moist. Pharynx: Oropharynx is clear. Eyes: Extraocular Movements: Extraocular movements intact. Conjunctiva/sclera: Conjunctivae normal. Pupils: Pupils are equal, round, and reactive to light. Cardiovascular: Rate and Rhythm: Normal rate and regular rhythm. Pulses: Normal pulses. Heart sounds: Normal heart sounds. Pulmonary: Effort: Pulmonary effort is normal. Breath sounds: Normal breath sounds. Abdominal: General: Abdomen is flat. Bowel sounds are normal. Palpations: Abdomen is soft. Musculoskeletal: Cervical back: Normal range of motion and neck supple. Skin: General: Skin is warm and dry. Capillary Refill: Capillary refill takes less than 2 seconds. Neurological: General: No focal deficit present. Mental Status: He is alert and oriented to person, place, and time. Mental status is at baseline. Psychiatric: Mood and Affect: Mood normal. Behavior: Behavior normal. Assessment/Plan Problem List Items Addressed This Visit ICD-10-CM BPH (benign prostatic hyperplasia) N40.0 Currently stable no change. Relevant Orders Follow Up In Primary Care - Established 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 K21.9 To have esophagram done tomorrow, following with gastroenterology, taking PPI twice a day, no longer taking Carafate, dysphagia depends on diet. Relevant Orders Follow Up In Primary Care - Established Hyperlipidemia E78.5 Taking and tolerating pravastatin, liver function testing normal, no change. Relevant Orders Comprehensive Metabolic Panel Lipid Panel Follow Up In Primary Care - Established Abdominal aneurysm ([facility]) I71.40 Ultrasound stable within the past year. Hypertension - Primary I10 Blood pressure under good control renal function stable, no change. Relevant Orders Comprehensive Metabolic Panel Follow Up In Primary Care - Established Lumbosacral spondylosis M47.817 Patient requested to see pain management again. Relevant Orders Referral to Pain Medicine Follow Up In Primary Care - Established Peripheral arterial occlusive disease ([facility]) I77.9 No active signs or symptoms of claudication. Carotid ultrasound up-to-date. Inflammatory polyarthropathy ([facility]) M06.4 Follows with rheumatology on a regular basis. MARIANGEL (generalized anxiety disorder) F41.1 Patient uncomfortable with anxiety, some trouble sleeping at night, able to accomplish day-to-day activities without difficulty, try low-dose sertraline. Relevant Medications sertraline (Zoloft) 25 mg tablet Other Relevant Orders Follow Up In Primary Care - Established Other Visit Diagnoses Codes Screening for prostate cancer Z12.5 Relevant Orders Prostate Specific Antigen, Screen Follow Up In Primary Care - Established Vertigo R42 Relevant Medications meclizine (Antivert) 25 mg tablet Other Relevant Orders Follow Up In Primary Care - Established documented in this [facility] Work Phone: [phone] History of Present illness Narrative* Daysi Arenas, DO - 11/01/2023 1:15 PM EST Subjective Patient ID: Fawn Campos is a 88 y.o. male who presents for GERD and Dysphagia (X 2 months Breads, scalloped potatoes, raw stock drier tender foods. ). GERD He reports no abdominal pain, no chest pain or no nausea. Dysphagia Pertinent negatives include no abdominal pain, chest pain, chills, fever, nausea or vomiting. Review of Systems Constitutional: Negative for chills, fever and unexpected weight change. HENT: Negative for trouble swallowing. Respiratory: Negative for shortness of breath. Cardiovascular: Negative for chest pain. Gastrointestinal: Negative for abdominal distention, abdominal pain, anal bleeding, blood in stool,constipation, diarrhea, nausea, rectal pain and vomiting. Skin: Negative for color change. Objective Physical Exam Vitals and nursing note reviewed. Constitutional: Appearance: Normal appearance. HENT: Head: Normocephalic. Mouth/Throat: Mouth: Mucous membranes are moist. Pharynx: Oropharynx is clear. Eyes: Pupils: Pupils are equal, round, and reactive to light. Cardiovascular: Rate and Rhythm: Normal rate and regular rhythm. Pulmonary: Effort: Pulmonary effort is normal. Breath sounds: Normal breath sounds. Abdominal: General: Abdomen is flat. Bowel sounds are normal. Palpations: Abdomen is soft. Musculoskeletal: General: Normal range of motion. Cervical back: Normal range of motion and neck supple. Skin: General: Skin is warm and dry. Neurological: General: No focal deficit present. Mental Status: He is alert and oriented to person, place, and time. Psychiatric: Mood and Affect: Mood normal. Behavior: Behavior normal. Assessment/Plan Daysi Arenas DO 11/01/23 1:18 PM documented in this [facility] Work Phone: [phone] History of Present illness Narrative* Eladio Kingsley Jr., DP - 10/31/2023 8:13 AM EST Left medial ingrown nail. Patient is a pleasant 88-year-old male who comes in today with continued pain to the ingrown medialcorner of his left great nail. Overall states that he feels much better and is really feeling well. Physical Vascular: DP pulses are intact, PT pulses poorly palpable. +1 pitting edema to the lower extremity CFT is moderate. Derm: Erythema present to the distal medial edge of the left great nail though there is no appearance no streaking no lymphangitis or fluctuance. The ingrown quadrant is present and painful with compression palpation still Can easily wiggle toes and clicking catching. Ankle subtalar is full and pain-free. Assessment and plan: Patient is a pleasant 88-year-old male with a acute onset chronic ingrown nailmedially left great toe. -overall healed. Could consider converting to a matrixectomy for permanency though likely this is not warranted and at this current time the risks outweigh the benefits therefore we will hold off. Follow-up in his traditional foot and nail care appointment going forward Low medical complexity decision making based on the acute on chronic nature. documented in this [id number] History of Present illness Narrative* Eladio Kingsley Jr., DPM - 10/24/2023 8:41 AM EST Left medial ingrown nail. Patient is a pleasant 88-year-old male who comes in today with continued pain to the ingrown medialcorner of his left great nail. He states his doxycycline last week for his ear infection and statesthat really only since down titrating his no better at past perhaps even worse. Comes in today to again have this reevaluated and reassessed. Additionally patient does take a ASA 325 for its antiplatelet therapy. Physical Vascular: DP pulses are intact, PT pulses poorly palpable. +1 pitting edema to the lower extremity CFT is moderate. Derm: Erythema present to the distal medial edge of the left great nail though there is no appearance no streaking no lymphangitis or fluctuance. The ingrown quadrant is present and painful with compression palpation still Can easily wiggle toes and clicking catching. Ankle subtalar is full and pain-free. Assessment and plan: Patient is a pleasant 88-year-old male with a acute onset chronic ingrown nailmedially left great toe. Patient has not failure with multiple debridements as well as antibiotics, discussed the advantagesand disadvantages of conversion to a nail avulsion. This is weighed against a matrixectomy and together decided on nail avulsion. No guarantees were implied or made, primary risks are pain tingling burning scarring infection and regrowth ingrowing again. Despite this risk he does wish to proceed. No guarantees were implied or made. After timeout consent was performed, and alcohol prep, the toe was blocked with 3 cc of 2% lidocaine plain. Attention was first directed medially. A tourniquet was used and set for 2 minutes. Utilizing an Greek anvil and 6100 blade, the nail medially was avulsed 3 mm off the base. Utilizing straight hemostat this was fully avulsed and passed off the surgical field. Next a copious amount of normal saline was used to irrigate the site and the location. Post avulsion postop bandage was applied with Telfa Kerlix Coban. Follow-up in 1 week for postop check. Low medical complexity decision making based on the acute on chronic nature, the need for a procedure as well as his elevated antiplatelet risk with aspirin. documented in this [id number] Instructions* Patient Instructions* Ayana Bojorquez, TECHNOLOGIST - 10/24/2023 8:36 AM EST POST NAIL SURGERY INSTRUCTIONS: General Information: Stay off your feet as much as possible today. You may wear any shoe, sandal, or open toe footwear that does not squeeze or constrict your toe. Your toe may remain numb for up to 6-10 hours after the procedure. Bleeding/ Drainage: Slight bleeding, discoloration and/ or red, pink, orange drainage is normal. Discomfort: You can elevate your foot to help alleviate minor swelling, bleeding and discomfort. You may also take aspirin, Tylenol or other over- the- counter pain relievers as directed on the package. If pain is not controlled to your comfort, please contact our office. Removing the surgical bandage/ dressing: The day after the surgery, carefully remove the dressing and shower/ bathe as normal. If the gauze or dressing sticks to the surgical area, dampen it with water or shower/ bathe with the dressing in place. This will make the dressing easier to remove with minimal discomfort. Blot dry with a clean cloth. A band-aid and antibiotic ointment should be changed twice daily on the surgical area until your follow-up appointment with the provider. Soaking Instructions Remove the dressing the day after your procedure and shower/ bathe as normal. Blot dry with a clean cloth. Soak the foot twice daily in warm soapy water or use a mixture of 1 quart warm water with cup Epsom salts. After soaking, apply antibiotic ointment and a Band-Aid twice daily until follow-up appointment. documented in this [id number] History of Present illness Narrative* Eladio Kingsley Jr., DPM - 10/12/2023 8:22 AM EST Patient is a pleasant 88-year-old male who comes in today for painful ingrown nail to the left great toe Physical Vascular: DP pulses are palpable 2 out of 4 bilaterally. PT pulses are nonpalpable bilaterally with+1 edema to the ankle and foot. Derm: Skin is shiny atrophic dysvascular with absence of hair growth. Capillary refill time is greater than 5 seconds to distal digits. Nails left foot 1 medially is slightly ingrown though there is no appearance of streaking lymphangitis. Does have pain to the edge. Neuro: Light touch is normal Babinski's is normal. Musculoskeletal: Muscle strength is 5/5 with fair tone, can easily wiggle toes without any clickingor catching Assessment and plan Patient is a pleasant 88-year-old male with mild ingrown nail left great toe. -It sounds a courtesy did help cut this free. Start topical bacitracin twice daily for the next 10 days no oral antibiotics as he did just finished an oral dose of doxycycline for left ear infection.Should have a good cross coverage of this. Follow-up for traditional foot nail care. Low medical complexity decision making. documented in this [id number] History of Present illness Narrative* Clark Lees PA-C - 10/06/2023 11:35 AM EST [facility] [place] NOTE: Name: Fawn Leigh Maria Elenajorje, 88 y.o. CSN:[id number] PCP: Don Barrera MD ALL: No Known Allergies History: Chief Complaint: UTI (FREQUENT URINATION X 1 DAY) Encounter Date: 10/06/2023 12:39hrs HPI: The history was obtained from the patient. Fawn is a 88 y.o. 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 He denies any N/V/D nor abdominal pain, but does endorse chronic back pain. PMHx: Past Medical History: Diagnosis Date Callus of foot 05/03/2023 Hypertension Personal history of other diseases of the nervous system and sense organs History of cataract Unspecified visual disturbance Visual aura Current Outpatient Medications Medication Sig Dispense Refill alfuzosin (UroxatraL) 10 mg 24 hr tablet Take 1 tablet (10 mg) by mouth once daily. Do not crush, chew, or split. 90 tablet 3 amLODIPine (Norvasc) 5 mg tablet Take 1 tablet (5 mg) by mouth once daily. 90 tablet 3 aspirin 325 mg tablet Take 1 tablet (325 mg) by mouth once daily. benazepril (Lotensin) 40 mg tablet Take 1 tablet (40 mg) by mouth once daily. 90 tablet 3 fluticasone (Flonase) 50 mcg/actuation nasal spray Administer into affected nostril(s) once every 24 hours. folic acid (Folvite) 1 mg tablet TAKE 2 TABLETS BY MOUTH EVERY DAY 180 tablet 2 methotrexate (Trexall) 2.5 mg tablet Take 6 tablets (15 mg total) by mouth 1 (one) time per week. metoprolol tartrate (Lopressor) 25 mg tablet Take 1 tablet (25 mg) by mouth 2 times a day. 180 tablet 3 multivitamin tablet Take 1 tablet by mouth once daily. omeprazole (PriLOSEC) [address] capsule Take 1 capsule (40 mg) by mouth once daily. 90 capsule 3 pravastatin (Pravachol) 40 mg tablet Take 1 tablet (40 mg) by mouth once daily at bedtime. 90 tablet 3 sucralfate (Carafate) 1 gram tablet Take 1 tablet (1 g) by mouth 4 times a day before meals for 14 days. 56 tablet 0 doxycycline (Monodox) 100 mg capsule Take 1 capsule (100 mg) by mouth 2 times a day with food for 7days (Patient not taking: Reported on 10/06/2023) 14 capsule 0 isosorbide mononitrate ER (Imdur) 30 mg 24 hr tablet 1 tablet (30 mg). No current facility-administered medications for this visit. PMSx: Past Surgical History: Procedure Laterality Date CATARACT EXTRACTION 04/12/2017 Cataract Surgery COLONOSCOPY 04/12/2017 Colonoscopy (Fiberoptic) HERNIA REPAIR 04/12/2017 Inguinal Hernia Repair OTHER SURGICAL HISTORY 04/12/2017 History Of Prior Surgery OTHER SURGICAL HISTORY 04/26/2022 Skin biopsy OTHER SURGICAL HISTORY 08/30/2021 Shoulder surgery OTHER SURGICAL HISTORY 08/30/2021 Hip replacement TONSILLECTOMY 04/12/2017 Tonsillectomy With Adenoidectomy Fam Hx: Family History Problem Relation Name Age of Onset Heart murmur Mother Hyperlipidemia Mother Other (CARDIAC DISORDER) Father Pneumonia Father SOC. Hx: Social History Socioeconomic History Marital status: Spouse name: Diya Number of children: Not on file Years of education: Not on file Highest education level: Not on file Occupational History Not on file Tobacco Use Smoking status: Former Types: Cigarettes Quit date: 1962 Years since quittin.9 Smokeless tobacco: Never Vaping Use Vaping Use: Never used Substance and Sexual Activity Alcohol use: Not Currently Drug use: Defer Sexual activity: Defer Other Topics Concern Not on file Social History Narrative Not on file Social Determinants of Health Financial Resource Strain: Not on file Food Insecurity: Not on file Transportation Needs: Not on file Physical Activity: Not on file Stress: Not on file Social Connections: Not on file Intimate Partner Violence: Not on file Housing Stability: Not on file Vitals: 10/06/23 1215 BP: 173/83 Pulse: 72 Resp: 14 Temp: 36.3 C (97.4 F) SpO2: 96% 72.1 kg (159 lb) Physical Exam Constitutional: Appearance: Normal appearance. He is normal weight. HENT: Head: Normocephalic and atraumatic. Nose: Nose normal. Mouth/Throat: Mouth: Mucous membranes are moist. Eyes: Extraocular Movements: Extraocular movements intact. Cardiovascular: Rate and Rhythm: Normal rate and regular rhythm. Pulmonary: Effort: Pulmonary effort is normal. Breath sounds: Normal breath sounds. Abdominal: General: Abdomen is flat. Musculoskeletal: General: Normal range of motion. Cervical back: Normal range of motion and neck supple. Skin: General: Skin is warm. Neurological: Mental Status: He is alert and oriented to person, place, and time. Psychiatric: Behavior: Behavior normal. LABORATORY @ RADIOLOGICAL IMAGING (if done): Results for orders placed or performed in visit on 10/06/23 (from the past 24 hour(s)) POCT UA (nonautomated w/o microscopy) manually resulted Result Value Ref Range POC Color, Urine Yellow Straw, Yellow, Light-Yellow POC Appearance, Urine Clear Clear POC Glucose, Urine NEGATIVE NEGATIVE mg/dl POC Bilirubin, Urine NEGATIVE NEGATIVE POC Ketones, Urine NEGATIVE NEGATIVE mg/dl POC Specific Mabie, Urine 1.015 1.005 - 1.035 POC Blood, Urine TRACE-Intact (A) NEGATIVE POC PH, Urine 7.0 No Reference Range Established PH POC Protein, Urine NEGATIVE NEGATIVE, 30 (1+) mg/dl POC Urobilinogen, Urine 0.2 0.2, 1.0 EU/DL Poc Nitrite, Urine NEGATIVE NEGATIVE POC Leukocytes, Urine NEGATIVE NEGATIVE UC COURSE/MEDICAL DECISION MAKING: Fawn is a 88 y.o., who presents with a working diagnosis of 1. Urinary frequency 2. Dysuria with a differential to include: urinary frequency caused by DM, DI, BPH, cystitis, urethritis Send for a microscopic evaluation, discussed possible causes, he voiced his understanding. I will notify him of the results once available. Clark Lees PA-C Advanced Practice Provider [facility] documented in this [facility] Work Phone: [phone] Instructions* Patient Instructions* Clark Lees PA-C - 10/06/2023 11:35 AM EST What is bladder training? Bladder training means changing your habits to better control your bladder (figure 1). It can help with urinary problems like: ?Frequency - This means having to use the toilet very frequently. ?Urgency - This means suddenly feeling the need to urinate right away. ?Leakage - This is when urgency leads to actually leaking urine. It is also called urge incontinence. Talk to your doctor or nurse before trying bladder training on your own. They will want to make sure that you do it correctly. They might also want to check for other problems, such as a urinary tract infection. What is a bladder diary? Bladder training involves trying to increase the amount of time between trips to the toilet. A bladder diary is a way to keep track of how often you go (form 1). Doctors sometimes call this a voiding diary. In the diary, write down: ?The time you urinate ?The amount of urine, if your doctor asked you to measure this ?If you had any leaking, how much (small, medium, or large amount), and what you were doing when the leakage happened ?The amounts and types of fluids you drink ?Any other symptoms you have How do I train my bladder? Once you have an idea of how often you are urinating, try to wait a little longer between trips to the toilet. This should be a gradual process: ?First, slightly increase the amount of time between bathroom visits. For example, if you normally go every hour, add 15 minutes. This means trying to wait 1 hour and 15 minutes between trips to the bathroom. ?Keep following this schedule for several days. If you can do this for 3 or 4 days without problems, increase the time again. For example, you can add 15 more minutes between trips to the bathroom. ?Keep doing this until you can wait at least 2 to 3 hours between bathroom visits. It can take timeto get to this point. Some people notice improvement within a few weeks of bladder training. But itcan take longer. Keep filling out your bladder diary as you work on bladder training. This will help you see improvement over time. The process might take several weeks. What else can I do to help with urgency? Part of bladder training involves learning to control the urge to urinate and make your bladder wait. Some things you can do to help with this: ?Squeeze your pelvic muscles - These include the muscles that control the flow of urine. Try squeezing the muscles and then relaxing them. Repeat this several times. ?Change positions - It might help to cross your legs or sit on a firm surface. ?Distract your mind - Try to think about something else until the urge passes. ?Relax - Stay still when you get the urge to urinate. It might help to do deep breathing exercises.Do not gonzalez to the toilet when it is time to go. What else should I know? These tips might help with bladder training: ?Try to only urinate when you actually need to go - For example, avoid going to the bathroom beforeleaving home just in case. This can train your brain to think that your bladder is full when it really isn't. ?Drink fluids throughout the day - Make sure that you drink enough fluids to stay hydrated. This usually means about 8 cups (64 ounces) a day. Try to spread this throughout the day instead of drinking a lot all at once. If you usually drink a lot more than this, ask your doctor or nurse if it is OKfor you to reduce the amount. ?Avoid drinking fluids soon before bedtime - This can lower the chances that you will need to urinate during the night. ?Limit or avoid alcohol and caffeine - Some people find that these things make them need to urinatemore. When should I call the doctor? Call your doctor or nurse if: ?Your urinary symptoms are not getting better or are getting worse. ?You are having trouble with your training schedule - Bladder training can be frustrating and take time. But don't give up. Your doctor or nurse can help you. ?You have other problems with urinating, such as pain or burning, not being able to urinate, or seeing blood in your urine. [facility] Work Phone: [phone] 371-975812-08-2023 Evaluation + Plan note* Assessment & Plan Note - Don Barrera MD - 09/28/2023 4:10 PM ESTAssociated Problem(s): 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 Patient with increasing refluxing, burping belching, advised to increase PPI to twice daily for thenext week, Co. prescribe Carafate for the next week to 10 days, call if not improving, sent for EGD. [facility] Work Phone: [phone] 297-465812-08-2023 Miscellaneous Notes* Assessment & Plan Note - Don Barrera MD - 09/28/2023 4:10 PM ESTAssociated Problem(s): 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 Patient with increasing refluxing, burping belching, advised to increase PPI to twice daily for thenext week, Co. prescribe Carafate for the next week to 10 days, call if not improving, sent for EGD. documented in this [facility] Work Phone: [phone] History of Present illness Narrative* Don Barrera MD - 09/28/2023 2:20 PM EST Subjective Patient ID: Andres Cameron is a 88 y.o. male who presents for gerd worse. HPI Burping often, some regurgitation, no dysphagia, no nausea, worse in the past 2- 3 weeks, no early satiety, appetite +/-, no bloating or change in bowel habits, some cough at times, no change in voice. OTC APAP, no NSAID use Review of Systems Constitutional: Negative for activity change, appetite change and fatigue. Respiratory: Negative for cough, chest tightness and shortness of breath. Cardiovascular: Negative for chest pain, palpitations and leg swelling. Gastrointestinal: Negative for abdominal pain, constipation, diarrhea, nausea and vomiting. Objective BP 120/66 Pulse 78 Ht 1.676 m (5' 6) Wt 72.1 kg (159 lb) SpO2 96% BMI 25.66 kg/m Physical Exam Vitals and nursing note reviewed. Constitutional: Appearance: Normal appearance. HENT: Head: Normocephalic and atraumatic. Right Ear: Tympanic membrane, ear canal and external ear normal. Left Ear: Tympanic membrane, ear canal and external ear normal. Nose: Nose normal. Mouth/Throat: Mouth: Mucous membranes are moist. Pharynx: Oropharynx is clear. Cardiovascular: Rate and Rhythm: Normal rate and regular rhythm. Pulses: Normal pulses. Heart sounds: Normal heart sounds. Pulmonary: Effort: Pulmonary effort is normal. Breath sounds: Normal breath sounds. Abdominal: General: Abdomen is flat. Bowel sounds are normal. There is no distension. Palpations: Abdomen is soft. There is no mass. Tenderness: There is no abdominal tenderness. There is no guarding. Musculoskeletal: Cervical back: Normal range of motion and neck supple. Neurological: Mental Status: He is alert. Psychiatric: Mood and Affect: Mood normal. Behavior: Behavior normal. Assessment/Plan Problem List Items Addressed This Visit ICD-10-CM 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 - Primary K21.9 Patient with increasing refluxing, burping belching, advised to increase PPI to twice daily for thenext week, Co. prescribe Carafate for the next week to 10 days, call if not improving, sent for EGD. Relevant Medications sucralfate (Carafate) 1 gram tablet Other Relevant Orders Referral to Gastroenterology documented in this [facility]Pro[facility] Work Phone: [phone] 488-894312-08-2023 Instructions* Patient Instructions* Don Barrera MD - 09/28/2023 2:20 PM EST Take omeprazole twice a day for the next week, add Carafate for the next week and we are going to take a look at your stomach documented in this [facility]Pro[facility] Work Phone: [phone] History of Present illness Narrative* Robb Colindres MD - 09/17/2023 8:00 AM EST Subjective Patient ID: Andres Cameron is a 88 y.o. male. HPI Patient is here for 1 month medication check. He was taken off Flomax and started on Uroxatral. He states this has been helpful. Most recent PSA was 0.33 on 05/13. Prior PSA was 0.29 on 05/12. Previous PSA was 0.25 on 05/11...pt does have hx of remote gross hematuria..No recurrence ..he did have a cysto done 12/11 and normal U/S done. ED is chronic. Review of Systems Constitutional: Negative for chills and fever. HENT: Negative. Eyes: Negative. Respiratory: Negative for cough and shortness of breath. Cardiovascular: Negative for chest pain and leg swelling. Gastrointestinal: Negative for nausea. Endocrine: Negative. Genitourinary: Negative for difficulty urinating. Negative except for documented in HPI Allergic/Immunologic: Negative. Neurological: Alert & oriented X 3 Hematological: Denies blood thinners Psychiatric/Behavioral: Negative. Objective Physical Exam Vitals and nursing note reviewed. Pulmonary: Effort: Pulmonary effort is normal. Breath sounds: Normal breath sounds. Abdominal: Palpations: Abdomen is soft. Tenderness: There is no abdominal tenderness. Genitourinary: Comments: Kidneys non palpable bilaterally Bladder non palpable or tender Neurological: Mental Status: He is alert. Assessment/Plan Diagnoses and all orders for this visit: Benign prostatic hyperplasia with lower urinary tract symptoms, symptom details unspecified - Measure post void residual Nocturia Erectile dysfunction, unspecified erectile dysfunction type Urinary frequency Nocturia associated with benign prostatic hyperplasia All available PSA values reviewed, Options discussed. Questions answered. Diet changes for prostate health discussed and educational information given. Pros/Cons of prostatehealth supplements discussed. Treatment options for LUTS reviewed Uroxatrol Rx given-[facility] Discussed timed voiding. Discussed fluid and caffeine intake PVR reviewed Treatment options for ED reviewed.-This is not an issue Lifestyle change to help prevent UTIs discussed. Encouraged fluid intake. F/U with PSA 1 year documented in this [facility]Pro[facility] Work Phone: [phone] Instructions* Patient Instructions* Delta Bangura MD - 08/29/2023 10:15 AM EST Please monitor each eye daily with Amsler Grid. AREDS 2 Vitamins are available over the counter at any drug store. -continue: Blink tears artificial tears- 1 drop three times a day Both eyes . Please call the office ([phone]) immediately if you notice more flashes of light, a sudden increase in floaters, or a sudden change in vision. If you have any questions please contact our office at [phone]. After office hours or on the weekend, please call Dr. Bangura on his cell phone at [phone]. [facility] History of Present illness Narrative* Delta Bangura MD - 08/29/2023 10:12 AM EST ASSESSMENT/PLAN: 1. Epiretinal membrane (ERM) of left eye - ICD9: 362.56, ICD10: H35.372 (primary diagnosis) -stable/ monitor 2. Nonexudative age-related macular degeneration, bilateral, early dry stage - ICD9: 362.51, ICD10:H35.3131 -Please monitor each eye daily with Amsler Grid. AREDS 2 Vitamins are available over the counter at any drug store. 3. PVD (posterior vitreous detachment), bilateral - ICD9: 379.21, ICD10: H43.813 -Please call the office ([phone]) immediately if you notice more flashes of light, a sudden increase in floaters, or a sudden change in vision. 4. Pseudophakia of both eyes - ICD9: V43.1, ICD10: Z96.1 -Intraocular lens in good position both eyes/ observe 5. Essential hypertension - ICD9: 401.9, ICD10: I10 6. Hypercholesteremia - ICD9: 272.0, ICD10: E78.00 -continue care with PCP I have confirmed and edited as necessary the relevant ophthalmic history, review of systems, surgical history, and ophthalmological examination findings as obtained by the ophthalmic technical staff.I have seen and examined Fwan Cameron. I have discussed the examination findings, diagnosis, and treatment options with Fawn Cameron and/or his family. I have also reviewed and agree with the assessment and plan as stated above and agree with all its relevant components. I gave the patient the opportunity to ask questions about the findings, diagnosis, and treatment options. Delta Bangura MD' [facility] Emergency department Note * Sai Myers MD - 07/22/2023 9:41 PM EDT HPI Chief Complaint Patient presents with Dizziness Pt comes in for dizziness with spouse The patient is an 88-year-old male chief complaint of abrupt onset of room spinning dizziness that has since resolved. He was sitting on the couch watching television when it occurred. It lasted a few minutes. Denies any history of vertigo. Did recently have a head CT few months ago due to feeling lightheaded and came to the ER then. States currently he feels a little woozy but his dizziness has resolved. [place] Coma Scale Score: 15 Patient History Past Medical History: Diagnosis Date Callus of foot 05/03/2023 Hypertension Personal history of other diseases of the nervous system and sense organs History of cataract Unspecified visual disturbance Visual aura Past Surgical History: Procedure Laterality Date CATARACT EXTRACTION 04/12/2017 Cataract Surgery COLONOSCOPY 04/12/2017 Colonoscopy (Fiberoptic) HERNIA REPAIR 04/12/2017 Inguinal Hernia Repair OTHER SURGICAL HISTORY 04/12/2017 History Of Prior Surgery OTHER SURGICAL HISTORY 04/26/2022 Skin biopsy OTHER SURGICAL HISTORY 08/30/2021 Shoulder surgery OTHER SURGICAL HISTORY 08/30/2021 Hip replacement TONSILLECTOMY 04/12/2017 Tonsillectomy With Adenoidectomy Family History Problem Relation Name Age of Onset Heart murmur Mother Hyperlipidemia Mother Other (CARDIAC DISORDER) Father Pneumonia Father Social History Tobacco Use Smoking status: Former Types: Cigarettes Quit date: 1962 Years since quittin.7 Smokeless tobacco: Never Vaping Use Vaping Use: Never used Substance Use Topics Alcohol use: Not Currently Drug use: Defer Physical Exam ED Triage Vitals [07/22/23 2149] Temp Heart Rate Resp BP 36.5 C (97.7 F) 66 18 151/72 SpO2 Temp Source Heart Rate Source Patient Position 95 % Temporal Monitor Lying BP Location FiO2 (%) Left arm -- Physical Exam Vitals and nursing note reviewed. Constitutional: Appearance: He is not ill-appearing or toxic-appearing. HENT: Head: Normocephalic and atraumatic. Right Ear: Tympanic membrane normal. Left Ear: Tympanic membrane normal. Nose: Nose normal. Mouth/Throat: Mouth: Mucous membranes are moist. Pharynx: No oropharyngeal exudate or posterior oropharyngeal erythema. Eyes: Extraocular Movements: Extraocular movements intact. Conjunctiva/sclera: Conjunctivae normal. Pupils: Pupils are equal, round, and reactive to light. Cardiovascular: Rate and Rhythm: Normal rate and regular rhythm. Pulmonary: Effort: Pulmonary effort is normal. No respiratory distress. Breath sounds: Normal breath sounds. No wheezing, rhonchi or rales. Abdominal: General: There is no distension. Palpations: Abdomen is soft. There is no mass. Tenderness: There is no abdominal tenderness. There is no guarding. Musculoskeletal: General: No deformity. Normal range of motion. Cervical back: Neck supple. No tenderness. Skin: General: Skin is warm and dry. Neurological: General: No focal deficit present. Mental Status: He is alert and oriented to person, place, and time. Psychiatric: Mood and Affect: Mood normal. ED Course & MDM Diagnoses as of 07/23/23 0058 Vertigo Medical Decision Making Upon arrival IV access was established. EKG was unremarkable for acute findings. CBC and BMP are essentially unremarkable. He continued to be asymptomatic since arriving. He was treated with 25 mg p.o. meclizine and 500 mL normal saline. He feels comfortable being discharged and does not require admission. Amount and/or Complexity of Data Reviewed ECG/medicine tests: independent interpretation performed. Details: Sinus rhythm rate of 66, narrow complex, normal axis, no ST elevation or depression, no ectopy Procedure Procedures Sai Myers MD 07/23/23 0100 * ANNIE Albarran - 07/22/2023 9:41 PM EDT Pt comes in with spouse for dizziness. Pt states that he was sitting on the couch and had an episode of near syncope. Pt states that the episode last for several minutes and ever since then he has been unsteady on his feet. Pt took his BP at home and it was 172/101. Pt was here about 3 months ago for the same thing. He was told at that time that his dizziness was due to his BP being elevated. documented in this [facility] Work Phone: 1(562) 922-607710-01-2023 Emergency department Triage note* ANNIE Albarran - 07/22/2023 9:41 PM EDT Pt comes in with spouse for dizziness. Pt states that he was sitting on the couch and had an episode of near syncope. Pt states that the episode last for several minutes and ever since then he has been unsteady on his feet. Pt took his BP at home and it was 172/101. Pt was here about 3 months ago for the same thing. He was told at that time that his dizziness was due to his BP being elevated. [facility] Work Phone: [phone] Physician Emergency department Note* Sai Myers MD - 07/22/2023 9:41 PM EDT HPI Chief Complaint Patient presents with Dizziness Pt comes in for dizziness with spouse The patient is an 88-year-old male chief complaint of abrupt onset of room spinning dizziness that has since resolved. He was sitting on the couch watching television when it occurred. It lasted a few minutes. Denies any history of vertigo. Did recently have a head CT few months ago due to feeling lightheaded and came to the ER then. States currently he feels a little woozy but his dizziness has resolved. [place] Coma Scale Score: 15 Patient History Past Medical History: Diagnosis Date Callus of foot 05/03/2023 Hypertension Personal history of other diseases of the nervous system and sense organs History of cataract Unspecified visual disturbance Visual aura Past Surgical History: Procedure Laterality Date CATARACT EXTRACTION 04/12/2017 Cataract Surgery COLONOSCOPY 04/12/2017 Colonoscopy (Fiberoptic) HERNIA REPAIR 04/12/2017 Inguinal Hernia Repair OTHER SURGICAL HISTORY 04/12/2017 History Of Prior Surgery OTHER SURGICAL HISTORY 04/26/2022 Skin biopsy OTHER SURGICAL HISTORY 08/30/2021 Shoulder surgery OTHER SURGICAL HISTORY 08/30/2021 Hip replacement TONSILLECTOMY 04/12/2017 Tonsillectomy With Adenoidectomy Family History Problem Relation Name Age of Onset Heart murmur Mother Hyperlipidemia Mother Other (CARDIAC DISORDER) Father Pneumonia Father Social History Tobacco Use Smoking status: Former Types: Cigarettes Quit date: 1962 Years since quittin.7 Smokeless tobacco: Never Vaping Use Vaping Use: Never used Substance Use Topics Alcohol use: Not Currently Drug use: Defer Physical Exam ED Triage Vitals [07/22/23 2149] Temp Heart Rate Resp BP 36.5 C (97.7 F) 66 18 151/72 SpO2 Temp Source Heart Rate Source Patient Position 95 % Temporal Monitor Lying BP Location FiO2 (%) Left arm -- Physical Exam Vitals and nursing note reviewed. Constitutional: Appearance: He is not ill-appearing or toxic-appearing. HENT: Head: Normocephalic and atraumatic. Right Ear: Tympanic membrane normal. Left Ear: Tympanic membrane normal. Nose: Nose normal. Mouth/Throat: Mouth: Mucous membranes are moist. Pharynx: No oropharyngeal exudate or posterior oropharyngeal erythema. Eyes: Extraocular Movements: Extraocular movements intact. Conjunctiva/sclera: Conjunctivae normal. Pupils: Pupils are equal, round, and reactive to light. Cardiovascular: Rate and Rhythm: Normal rate and regular rhythm. Pulmonary: Effort: Pulmonary effort is normal. No respiratory distress. Breath sounds: Normal breath sounds. No wheezing, rhonchi or rales. Abdominal: General: There is no distension. Palpations: Abdomen is soft. There is no mass. Tenderness: There is no abdominal tenderness. There is no guarding. Musculoskeletal: General: No deformity. Normal range of motion. Cervical back: Neck supple. No tenderness. Skin: General: Skin is warm and dry. Neurological: General: No focal deficit present. Mental Status: He is alert and oriented to person, place, and time. Psychiatric: Mood and Affect: Mood normal. ED Course & MDM Diagnoses as of 07/23/23 0058 Vertigo Medical Decision Making Upon arrival IV access was established. EKG was unremarkable for acute findings. CBC and BMP are essentially unremarkable. He continued to be asymptomatic since arriving. He was treated with 25 mg p.o. meclizine and 500 mL normal saline. He feels comfortable being discharged and does not require admission. Amount and/or Complexity of Data Reviewed ECG/medicine tests: independent interpretation performed. Details: Sinus rhythm rate of 66, narrow complex, normal axis, no ST elevation or depression, no ectopy Procedure Procedures Sai Myers MD 07/23/23 0100 [facility] Work Phone: 1(758) 571-813108-10-2023 Evaluation + Plan note* Assessment & Plan Note - Don Barrera MD - 05/31/2023 3:20 PM EDTAssociated Problem(s): Shoulder pain Injected the shoulder today with combination 40 mg triamcinolone and 2 cc 0.5% bupivacaine. Patienthad done PT in the past, x-ray 2 years ago demonstrated moderate degenerative changes, patient mostlikely has arthritis and adhesive capsulitis, is not interested in surgery or physical therapy, advised to contact the office if the injection is not helpful. [facility] Work Phone: 1([phone]) 161-249308-10-2023 Miscellaneous Notes* Assessment & Plan Note - Don Barrera MD - 05/31/2023 3:20 PM EDTAssociated Problem(s): Shoulder pain Injected the shoulder today with combination 40 mg triamcinolone and 2 cc 0.5% bupivacaine. Patienthad done PT in the past, x-ray 2 years ago demonstrated moderate degenerative changes, patient mostlikely has arthritis and adhesive capsulitis, is not interested in surgery or physical therapy, advised to contact the office if the injection is not helpful. [facility] Work Phone: [phone]) 106-977308-10-2023 History of Present illness Narrative* Don Barrera MD - 05/31/2023 2:40 PM EDTAssociated Order(s): Joint Injection Large/Arthrocentesis: R subacromial bursa Post-Procedure Diagnose(s): Chronic right shoulder pain Subjective Patient ID: Andres Cameron is a 88 y.o. male who presents for wants RT Shoulder inj. HPI Had injection 3 years ago, helped, start to be more issue in the past month, difficult abduction Had done PT in the past for the shoulder Review of Systems Constitutional: Negative for chills, fatigue and fever. Musculoskeletal: Negative for arthralgias. Neurological: Negative for numbness and headaches. Objective BP 120/60 Pulse 64 Ht 1.651 m (5' 5) Wt 72 kg (158 lb 12.8 oz) SpO2 95% BMI 26.43 kg/m Physical Exam Vitals and nursing note reviewed. Constitutional: Appearance: Normal appearance. He is normal weight. Musculoskeletal: Comments: Very limited abduction of the right shoulder to only about 75 degrees. Palpable clunking and clicking with attempt to pass abduction above this level. Positive impingement signs, no obviousdeformity. Neurological: Mental Status: He is alert. Joint Injection Large/Arthrocentesis: R subacromial bursa on 05/31/2023 3:19 PM Indications: pain Details: 25 G needle, posterior approach Medications: 40 mg triamcinolone acetonide 40 mg/mL Outcome: tolerated well, no immediate complications Procedure, treatment alternatives, risks and benefits explained, specific risks discussed. Consent was given by the patient. Assessment/Plan Problem List Items Addressed This Visit Shoulder pain - Primary Injected the shoulder today with combination 40 mg triamcinolone and 2 cc 0.5% bupivacaine. Patienthad done PT in the past, x-ray 2 years ago demonstrated moderate degenerative changes, patient mostlikely has arthritis and adhesive capsulitis, is not interested in surgery or physical therapy, advised to contact the office if the injection is not helpful. [facility]Pro[facility] Work Phone: 1([phone]) 279-300607-14-2023 Evaluation + Plan note* Assessment & Plan Note - Don Barrera MD - 05/04/2023 10:19 AM EDTAssociated Problem(s): BPH (benign prostatic hyperplasia) Some symptoms, not inhibiting day-to-day activities. [facility] Work Phone: [phone] Miscellaneous Notes* Assessment & Plan Note - Don Barrera MD - 05/04/2023 10:19 AM EDTAssociated Problem(s): BPH (benign prostatic hyperplasia) Some symptoms, not inhibiting day-to-day activities. 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 * Assessment & Plan Note - Don Barrera MD - 05/04/2023 10:18 AM EDT Associated Problem(s): Hypertension Blood pressure under good control, no change with medication. * Assessment & Plan Note - Don Barrera MD - 05/04/2023 10:18 AM EDT Associated Problem(s): Abdominal aneurysm (CMS/HCC) Check ultrasound to evaluate for any change. Last ultrasound was a year ago. * Assessment & Plan Note - Don Barrera MD - 05/04/2023 10:18 AM EDT Associated Problem(s): Hyperlipidemia Laboratory testing is normal, continue with current medication. documented in this [facility] Work Phone: [phone]) 270-799507-14-2023 Evaluation + Plan note* Assessment & Plan Note - Don Barrera MD - 05/04/2023 10:18 AM EDTAssociated Problem(s): Peripheral arterial occlusive disease (CMS/HCC) Check abdominal ultrasound to evaluate AAA. [facility] Work Phone: [phone]) [phone] Evaluation + Plan note* Assessment & Plan Note - Don Barrera MD - 05/04/2023 10:18 AM EDTAssociated Problem(s): Hypertension Blood pressure under good control, no change with medication. [facility] Work Phone: [phone]) [phone] Evaluation + Plan note* Assessment & Plan Note - Don Barrera MD - 05/04/2023 10:18 AM EDTAssociated Problem(s): Abdominal aneurysm (CMS/HCC) Check ultrasound to evaluate for any change. Last ultrasound was a year ago. [facility] Work Phone: [phone]) [phone] Evaluation + Plan note* Assessment & Plan Note - Don Barrera MD - 05/04/2023 10:18 AM EDTAssociated Problem(s): Hyperlipidemia Laboratory testing is normal, continue with current medication. [facility] Work Phone: 1([phone]) 148-362807-14-2023 History of Present illness Narrative* Don Barrera MD - 05/04/2023 8:00 AM EDT Subjective Reason for Visit: Fawn Cameron is an 88 y.o. male here for a Medicare Wellness visit. Past Medical, Surgical, and Family History reviewed and updated in chart. Reviewed all medications by prescribing practitioner or clinical pharmacist (such as prescriptions,OTCs, herbal therapies and supplements) and documented in the medical record. HPI No headache, chest pain, shortness of breath, dizziness, lightheadedness, or edema Taking PPI daily without breakthrough symptoms. Reviewed dietary, caffeine, tobacco, alcohol, and NSAID use. No dyspepsia, dysphagia, reflux, melena, or abdominal pain. Sees Rheumatology on a regular basis Follows with Opthalmology on a regular basis No more dizziness, HBP normal, visual auras without headaches Some urine freq/urgency, some nocturia Patient Care Team: Don Barrera MD as PCP - General Don Barrera MD as PCP - [facility] Attributed Provider Review of Systems Constitutional: Negative for activity change, appetite change, fatigue and unexpected weight change. HENT: Negative for ear pain, nosebleeds, rhinorrhea, sneezing and trouble swallowing. Respiratory: Negative for cough, shortness of breath and wheezing. Cardiovascular: Negative for chest pain, palpitations and leg swelling. Gastrointestinal: Negative for abdominal distention, abdominal pain, constipation, diarrhea, nauseaand vomiting. Genitourinary: Positive for frequency and urgency. Negative for difficulty urinating. Musculoskeletal: Negative for arthralgias. Skin: Negative for rash. Neurological: Negative for dizziness, light-headedness, numbness and headaches. Hematological: Negative for adenopathy. Psychiatric/Behavioral: Negative for behavioral problems. All other systems reviewed and are negative. Objective Vitals: BP 116/60 Pulse 61 Ht 1.651 m (5' 5) Wt 71.5 kg (157 lb 11.2 oz) SpO2 98% BMI 26.24 kg/m Physical Exam Vitals and nursing note reviewed. Constitutional: Appearance: Normal appearance. HENT: Head: Normocephalic and atraumatic. Right Ear: Tympanic membrane, ear canal and external ear normal. Left Ear: Tympanic membrane, ear canal and external ear normal. Nose: Nose normal. Mouth/Throat: Mouth: Mucous membranes are moist. Pharynx: Oropharynx is clear. Cardiovascular: Rate and Rhythm: Normal rate and regular rhythm. Pulses: Normal pulses. Heart sounds: Normal heart sounds. Pulmonary: Effort: Pulmonary effort is normal. Breath sounds: Normal breath sounds. Musculoskeletal: Cervical back: Normal range of motion and neck supple. Neurological: Mental Status: He is alert. Psychiatric: Mood and Affect: Mood normal. Behavior: Behavior normal. Assessment/Plan Problem List Items Addressed This Visit BPH (benign prostatic hyperplasia) Current Assessment & Plan Some symptoms, not inhibiting day-to-day activities. Relevant Medications tamsulosin (Flomax) 0.4 mg 24 hr capsule Hyperlipidemia Current Assessment & Plan Laboratory testing is normal, continue with current medication. Relevant Orders Cholesterol, LDL Direct Abdominal aneurysm (CMS/HCC) Current Assessment & Plan Check ultrasound to evaluate for any change. Last ultrasound was a year ago. Hypertension Current Assessment & Plan Blood pressure under good control, no change with medication. Relevant Orders Comprehensive Metabolic Panel Peripheral arterial occlusive disease (CMS/HCC) Current Assessment & Plan Check abdominal ultrasound to evaluate AAA. Other Visit Diagnoses Routine general medical examination at health care facility - Primary Infrarenal abdominal aortic aneurysm (AAA) without rupture ([facility]/HCC) Relevant Orders Vascular US abdominal aorta anuerysm AAA screening [facility] Work Phone: 1(781) 218-351705-03-2023 Instructions* Patient Instructions* Delta Bangura MD - 02/21/2023 8:42 AM EDT Continue: Blink tears three times a day Both eyes If you have any questions please contact our office at [phone]. After office hours or on the weekend, please call Dr. Bangura on his cell phone at [phone]. [facility] History of Present illness Narrative* Delta Bangura MD - 02/21/2023 8:41 AM EDT ASSESSMENT/PLAN: 1. Epiretinal membrane (ERM) of left eye - ICD9: 362.56, ICD10: H35.372 (primary diagnosis) -stable/ monitor 2. 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 Pseudophakia of both eyes - ICD9: V43.1, ICD10: Z96.1 -Intraocular lens in good position Both eyes/ observe 4. PVD (posterior vitreous detachment), bilateral - ICD9: 379.21, ICD10: H43.813 -Please call the office ([phone]) immediately if you notice more flashes of light, a sudden increase in floaters, or a sudden change in vision. 5. Essential hypertension - ICD9: 401.9, ICD10: I10 6. Hypercholesteremia - ICD9: 272.0, ICD10: E78.00 7. Osteoarthritis, unspecified osteoarthritis type, unspecified site - ICD9: 715.90, ICD10: M19.90 -continue care with PCP I have confirmed and edited as necessary the relevant ophthalmic history, review of systems, surgical history, and ophthalmological examination findings as obtained by the ophthalmic technical staff.I have seen and examined Fawn Lu Cameron. I have discussed the examination findings, diagnosis, and treatment options with Fawn Lu Cameron and/or his family. I have also reviewed and agree with the assessment and plan as stated above and agree with all its relevant components. I gave the patient the opportunity to ask questions about the findings, diagnosis, and treatment options. Delta Bangura MD documented in [facility]04-[facility] History of Present illness Narrative* Eladio Kingsley Jr., DPM - 02/09/2023 8:25 AM EDT Patient is a pleasant 87-year-old male who comes in today for introduced arterial disease with nailcare. His geriatric care and primary care is managed by Dr. Don Barrera, date of last service is July 14, 2022. Physical Vascular: DP pulses are palpable 2 out of 4 bilaterally. PT pulses are nonpalpable bilaterally with+1 edema to the ankle and foot. Derm: Skin is shiny atrophic dysvascular with absence of hair growth. Capillary refill time is greater than 5 seconds to distal digits. Nails 93333 left foot nails 73426 right foot are elongated thickened mycotic crumbling and dystrophic. Neuro: Light touch is normal Babinski's is normal. 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 -At this time is eligible for nail care in light of his arterial disease age induced Procedure: After timeout consults performed, sharply debrided and debulked in height and length 10 onychomycotic nails with a sharp pair of nail nippers consistent with a q8 modifier. -Follow-up in 3 months for foot nail care documented in this [id number] History of Present illness Narrative* Eladio Kingsley Jr., DPM - 11/17/2022 8:12 AM EST Patient is a pleasant 87-year-old male who comes in today for introduced arterial disease with nailcare. His geriatric care and primary care is managed by Dr. Don Barrera, date of last service is July 14, 2022. Physical Vascular: DP pulses are palpable 2 out of 4 bilaterally. PT pulses are nonpalpable bilaterally with+1 edema to the ankle and foot. Derm: Skin is shiny atrophic dysvascular with absence of hair growth. Capillary refill time is greater than 5 seconds to distal digits. Nails 59080 left foot nails 19571 right foot are elongated thickened mycotic crumbling and dystrophic. Neuro: Light touch is normal Babinski's is normal. 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 -At this time is eligible for nail care in light of his arterial disease age induced Procedure: After timeout consults performed, sharply debrided and debulked in height and length 10 onychomycotic nails with a sharp pair of nail nippers consistent with a q8 modifier. -Follow-up in 3 months for foot nail care documented in this [id number] History of Present illness Narrative* No headache, chest pain, shortness of breath, dizziness, lightheadedness, or edema * Taking PPI daily without breakthrough symptoms. Reviewed dietary, caffeine, tobacco, alcohol, and NSAID use. No dyspepsia, dysphagia, reflux, melena, or abdominal pain. * coughing better, was in urgent care the start of September * seen cardiology, no change in medicines * sees rheumatology on a regular basis * has some visual auras, no HAs, sees opthalmology on a regular basis * seen dermatology this past summer * last seen urology this past summer, some urine urge [facility] Work Phone: [phone] 871-242310-28-2022 History of Present illness Narrative* Eladio Kingsley Jr., DPM - 08/18/2022 8:17 AM EDT Patient is a pleasant 87-year-old male who comes in today for introduced arterial disease with nailcare. His geriatric care and primary care is managed by Dr. Don Barrera, date of last service is July 14, 2022. Physical Vascular: DP pulses are palpable 2 out of 4 bilaterally. PT pulses are nonpalpable bilaterally with+1 edema to the ankle and foot. Derm: Skin is shiny atrophic dysvascular with absence of hair growth. Capillary refill time is greater than 5 seconds to distal digits. Nails 97049 left foot nails 55520 right foot are elongated thickened mycotic crumbling and dystrophic. Neuro: Light touch is normal Babinski's is normal. 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 -At this time is eligible for nail care in light of his arterial disease age induced Procedure: After timeout consults performed, sharply debrided and debulked in height and length 10 onychomycotic nails with a sharp pair of nail nippers consistent with a q8 modifier. -Follow-up in 3 months for foot nail care documented in this [id number] History of Present illness Narrative* Eladio Kingsley Jr., ROMA - 05/19/2022 8:35 AM EDT Patient is a pleasant 87-year-old male who comes in today for introduced arterial disease with nailcare. His geriatric care and primary care is managed by Dr. Don Barrera, date of last service is April 21, 2022. Physical Vascular: DP pulses are palpable 2 out of 4 bilaterally. PT pulses are nonpalpable bilaterally with+1 edema to the ankle and foot. Derm: Skin is shiny atrophic dysvascular with absence of hair growth. Capillary refill time is greater than 5 seconds to distal digits. Nails 22056 left foot nails 33240 right foot are elongated thickened mycotic crumbling and dystrophic. Neuro: Light touch is normal Babinski's is normal. 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 -At this time is eligible for nail care in light of his arterial disease age induced Procedure: After timeout consults performed, sharply debrided and debulked in height and length 10 onychomycotic nails with a sharp pair of nail nippers consistent with a q8 modifier. -Follow-up in 3 months for foot nail care documented in this [id number] Telephone encounter Note* Telephone Encounter - Jagdish Soto MA - 02/17/2022 1:46 PM EDT Received refill request for metoprolol tart 25 mg bid 180/3. Pt's last OV was 05/09/21. Follow up isdue yearly thanks. [id number] Miscellaneous Notes* Telephone Encounter - Jagdish Soto MA - 02/17/2022 1:46 PM EDT Received refill request for metoprolol tart 25 mg bid 180/3. Pt's last OV was 05/09/21. Follow up isdue yearly thanks. documented in this [id number] History of Present illness Narrative* Eladio Kingsley Jr., DPM - 02/15/2022 9:52 AM EDT Patient is a pleasant 86-year-old male who comes in today for introduced arterial disease with nailcare. His geriatric care and primary care is managed by Dr. Don Barrera, date of last service is June 20, 2021. Physical Vascular: DP pulses are palpable 2 out of 4 bilaterally. PT pulses are nonpalpable bilaterally with+1 edema to the ankle and foot. Derm: Skin is shiny atrophic dysvascular with absence of hair growth. Capillary refill time is greater than 5 seconds to distal digits. Nails 43696 left foot nails 13040 right foot are elongated thickened mycotic crumbling and dystrophic. Neuro: Light touch is normal Babinski's is normal. 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 -At this time is eligible for nail care in light of his arterial disease age induced Procedure: After timeout consults performed, sharply debrided and debulked in height and length 10 onychomycotic nails with a sharp pair of nail nippers consistent with a q8 modifier. -Follow-up in 3 months for foot nail care documented in this [id number] History of Present illness Narrative* On a scale of 0 to 10, the patient rates the pain at 1. * Pain Location: L thigh. * Pain Quality: Aching and Burning. * Timing/Duration: Intermittent and > 12 weeks duration. -[facility] Work Phone: [phone]) 266-149501-14-2022 History of Present illness Narrative* Eladio Kingsley Jr., DPM - 11/04/2021 8:18 AM EST Patient is a pleasant 86-year-old male who comes in today for introduced arterial disease with nailcare. His geriatric care and primary care is managed by Dr. Don Barrera, date of last service is June 20, 2021. Physical Vascular: DP pulses are palpable 2 out of 4 bilaterally. PT pulses are nonpalpable bilaterally with+1 edema to the ankle and foot. Derm: Skin is shiny atrophic dysvascular with absence of hair growth. Capillary refill time is greater than 5 seconds to distal digits. Nails 83790 left foot nails 29349 right foot are elongated thickened mycotic crumbling and dystrophic. Neuro: Light touch is normal Babinski's is normal. 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 -At this time is eligible for nail care in light of his arterial disease age induced Procedure: After timeout consults performed, sharply debrided and debulked in height and length 10 onychomycotic nails with a sharp pair of nail nippers consistent with a q8 modifier. -Follow-up in 3 months for foot nail care documented in this [id number] History of Present illness Narrative* On a scale of 0 to 10, the patient rates the pain at 1. * now and 8/10 at its worst. * Pain Location: lt front lateral thigh. * Pain Quality: Aching and Sharp. * Pain Radiation: in lt groin. * Sensory/ Motor: Pins and [place] and bilat lower extremitis from bilat claves into feet with standing a long time. * Timing/Duration: Intermittent and > 12 weeks duration. * Exacerbating Factors: standing, walking, weightbearing and can come on with no activity. * Alleviating Factors: Medications, Other: ___. * 24 Hour Behavior: depends on the day. * Effect of Movement on Symptoms: feels it in his back. * Lying doesn't change symptoms. * Rising from sitting makes symptoms worse. at times. * Sitting makes symptoms worse. * Standing makes symptoms worse. * Rising from supine to sitting doesn't change symptoms. * Walking makes symptoms worse. * Twisting makes symptoms worse. * Weather doesn't change symptoms. * Pushing motion doesn't change symptoms. * Pulling motion doesn't change symptoms. * Lifting: Worse. * Psychosocial Factors vs Last Visit: * Physical Functioning: Worse. at times. * Family Relationships: Same. * Social Relationships: Same. * Mood: Worse. * Sleep Patterns: Same. * Overall Functioning: Worse. can only stand or walk short distance. * Self Management Tools: patient is resting with positive response, patient is using exercise with positive response, patient is using mindfulness with positive response and patient is using relaxationwith positive response. [facility] Work Phone: [phone]) 375-334009-11-2021 History of Present illness Narrative* Vijay Viveros MD - 07/02/2021 7:06 AM EDT (Incomplete)This note is in progress. Dictation on: 07/02/2021 7:08 AM by: VIJAY VIVEROS [[id number]] documented in this [id number] History of Present illness Narrative* Vijay Viveros MD - 05/20/2021 4:41 PM EDT Fawn comes in today for followup of his left hip, his left leg, his back and his radiculopathy. If you will recall, Fawn is a gentleman I saw him about 6 months ago. He had a hip replacement back in August 2019, did very well with the left hip. Unfortunately, he started having back and radicular type symptoms. He said it is better. It is activity related and time related. He said that he is feeling better. He said at times he does not need a cane at all, but then if he works it hard, hehas some pain and discomfort down the left leg. If you will recall, we did x-rays of the hip as well as his back, which showed a retrolisthesis at L1-2, L2-3 and L3-4 with significant L4-5 and L5-S1 concavity with his lumbar scoliosis. The patient comes in today. PHYSICAL EXAMINATION He is awake, alert and oriented x3, ambulates without assistive device. His left lower extremity isgrossly neurologically intact, 2+ pulses. Full range of motion of the ankle, knee, and hip. Otherwise, physical exam is unchanged. IMPRESSION 1.Left hip replacement. 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 PLAN He is going to do physical therapy at [facility] where he works. I will see him in 6 monthsfor a year checkup. documented in this [id number] History of Present illness Narrative* Eladio Kingsley Jr., DP - 05/13/2021 8:15 AM EDT Patient is a pleasant 86-year-old male who comes in today for introduced arterial disease with nailcare. His geriatric care and primary care is managed by Dr. Don Barrera, date of last service is February 18, 2021. Physical Vascular: DP pulses are palpable 2 out of 4 bilaterally. PT pulses are nonpalpable bilaterally with+1 edema to the ankle and foot. Derm: Skin is shiny atrophic dysvascular with absence of hair growth. Capillary refill time is greater than 5 seconds to distal digits. Nails 39594 left foot nails 39987 right foot are elongated thickened mycotic crumbling and dystrophic. Neuro: Light touch is normal Babinski's is normal. 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 -At this time is eligible for nail care in light of his arterial disease age induced Procedure: After timeout consults performed, sharply debrided and debulked in height and length 10 onychomycotic nails with a sharp pair of nail nippers consistent with a q8 modifier. Follow-up in 3 months for foot nail care documented in this [id number] History of Present illness NarrativeYealry w/PSA..Most recent PSA was 0.25 on 05/11..Chronic BPH...BPH sx are mild and stable....No urgency or frequency...No dysuria..No hematuria...Nocturia 2x...patient is taking flomax which does seemto hellp sx...pt does have hx of gross hematuria..No recurrence since last visit...he did have a cysto done 12/11 and normal U/S done...No hx of kidney stones...No hx of UTI's...hx of post op urinary retention...duncan was removed 10/09 and pt states he has had no recent sx...ED is chronic. No UTI [facility] Work Phone: 1(236) 288-425707-19-2021 History of Present illness Narrative* Heather Paredes MD - 05/09/2021 10:14 AM EDT Patient Name: Fawn Cameron MR #: [id number] Interventional Cardiology Heather Paredes MD, [facility] 05/09/21 Dear Don Barrera MD, Fawn Cameron was seen in follow up for : Problem Bradycardia Hyperlipidemia Coronary Artery Disease Involving [place] Coronary Artery of [place] Heart Without Angina Pectoris 2005-Occluded RCA mild diffuse other-- same in 2010 and did EECP 2019-stress ok pre op Assessment and Plan 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 Doing well, Medications reviewed and recommended to continue asa Followup 1 year Hyperlipidemia Doing well, Medications reviewed and recommended to continue pravastatin Followup 1 year Bradycardia A little tired and hr 55 will decrease to 25 bid lopressor Thank you or allowing me to participate in the care of your patients. No orders of the defined types were placed in this encounter. Return in about 1 year (around 05/09/2022). EKG:Sinus Bradycardia Subjective: Fawn Cameron is a 86 y.o. y/o male : No issues Denies chest discomfort, sob, palpitations, pnd, orthopnea,edema or syncope. 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 HEENT: Normocephalic, nl conjunctiva Neck: Supple, no gross thyromegaly,no palpable neck adenopathy Cardiovascular: regular rate and rhythm. no murmurs, .No JVD, No Carotid Bruits, no LE edema :Respiratory: Clear to auscultation bilaterally without wheezes, rhonchi, or rales Abdominal: soft, nontender, nondistended,no gross HSM or masses noted. Skin: Normal turgor,no major peripheral rashes noted. Extremities : No clubbing, cyanosis Neurological: Cranial nerves 2 through 12 intact grossly. No focal neurological deficits noted. Psych: Normal mood and affect. ROS/MA were reviewed Home Medications: Patient's Medications New Prescriptions No medications on file Previous Medications AMLODIPINE (NORVASC) 5 MG TABLET Take 5 mg by mouth daily . ASPIRIN 325 MG TABLET Take 325 mg by mouth daily . BENAZEPRIL (LOTENSIN) 40 MG TABLET Take 40 mg by mouth daily . FOLIC ACID (FOLVITE) 1 MG TABLET Take 2 mg by mouth daily. METHOTREXATE 2.5 MG TABLET Take 7 mg by mouth once a week . MULTIVITAMIN (THERAGRAN) PER TABLET Take 1 tablet by mouth daily. NITROGLYCERIN (NITROSTAT) 0.[address] 0.4 mg under the tongue every 5 (five) minutes as needed . OMEPRAZOLE (PRILOSEC) 20 MG CAPSULE Take 40 mg by mouth daily . PRAVASTATIN (PRAVACHOL) 40 MG TABLET Take 40 mg by mouth nightly . TAMSULOSIN (FLOMAX) 0.4 MG CAPSULE Take 0.8 mg by mouth daily . Modified Medications Modified Medication Previous Medication METOPROLOL TARTRATE (LOPRESSOR) 25 MG TABLET metoprolol tartrate (LOPRESSOR) 50 MG tablet Take 1 (one) tablet (25 mg total) by mouth 2 (two) times a day . Take 50 mg by mouth 2 (two) times a day. Discontinued Medications ALENDRONATE (FOSAMAX) 70 MG TABLET Take 1 (one) tablet (70 mg total) by mouth every 7 days (full glass of water on an empty stomach). Remain upright and do not eat for next 30 min . ASPIRIN-CALCIUM CARBONATE 81 MG-300 MG CALCIUM(777 MG) TAB Take 1 Unspecified by mouth daily . FLUTICASONE PROPIONATE (FLONASE) 50 MCG/ACTUATION NASAL SPRAY Instill 2 Unspecified into each nostril daily . GLUCOSAMINE-CHONDROITIN 500-400 MG TABLET Take 1 tablet by mouth 3 (three) times a day . OXYCODONE-ACETAMINOPHEN (PERCOCET) 5-325 MG PER TABLET * Екатерина Chaudhry MA - 05/09/2021 10:01 AM EDT Review of Systems Constitutional: Negative for diaphoresis, malaise/fatigue, weight gain and weight loss. HENT: Negative for hearing loss, nosebleeds and tinnitus. Eyes: Negative for blurred vision and visual disturbance. Cardiovascular: Negative for chest pain, claudication, cyanosis, dyspnea on exertion, irregular heartbeat, leg swelling, near-syncope, orthopnea, palpitations, paroxysmal nocturnal dyspnea and syncope. Respiratory: Negative for hemoptysis, shortness of breath and snoring. Endocrine: Negative for cold intolerance and heat intolerance. Hematologic/Lymphatic: Does not bruise/bleed easily. Skin: Negative for flushing, poor wound healing and rash. Musculoskeletal: Negative for back pain, muscle weakness and myalgias. Gastrointestinal: Negative for abdominal pain, change in bowel habit, melena, nausea and vomiting. Genitourinary: Negative for decreased libido and hematuria. Neurological: Negative for loss of balance and numbness. Psychiatric/Behavioral: Negative for memory loss. The patient is not nervous/anxious. 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 Doing well, Medications reviewed and recommended to continue asa Followup 1 year documented in this [id number] History of Present illness Narrative3 weeks with open area L ear, had treated 3 years ago with ENT, + sensitiveMP[facility] Work Phone: [phone]) 627-311601-28-2015 History of Past illness Narrative* Problem Noted Date Resolved Date Other vitreous opacities - Both Eyes 11/18/2014 12/30/2015 Tear film insufficiency, unspecified - Both Eyes 11/18/2014 12/30/2015 Lens replaced by other means - Both Eyes 015 12/30/2015 S/P laser cataract surgery - Both Eyes 5 12/30/2015 documented as of this encounter (statuses as of 02/21/2023) [facility]01-[facility] History of Past illness Narrative* Problem Noted Date Diagnosed Date Resolved Date Other vitreous opacities - Both Eyes 11/18/2014 12/30/2015 Tear film insufficiency, uns pecified - Both Eyes 11/18/2014 12/30/2015 Lens replaced by other means - Both Eyes 11/18/2014 12/30/2015 S/P laser cataract surgery - Both Eyes 11/18/2014 12/30/2015 documented as of this encounter (statuses as of 08/30/2023) [facility] Callus of foot Corns and callosities OM (onychomycosis) Dermatophytosis of nail PAD (peripheral artery disease) (HCC) Unspecified [facility] 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- Primary [facility] Diagnosis 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 Mixed hyperlipidemia Bradycardia Other specified cardiac dysrhythmias [facility] Diagnosis Onychomycosis- Primary Dermatophytosis of nail Peripheral vascular disease, unspecified (HCC) Peripheral vascular disease, unspecified [facility] Diagnosis Status post left hip replacement- Primary [facility] Diagnosis Status post left hip replacement- Primary [facility] Diagnosis Onychomycosis- Primary Dermatophytosis of nail Peripheral vascular disease, unspecified (HCC) Peripheral vascular disease, unspecified [facility] Diagnosis OM (onychomycosis)- Primary Dermatophytosis of nail PAD (peripheral artery disease) (HCC) Unspecified peripheral vascular disease [facility] Diagnosis OM (onychomycosis)- Primary Dermatophytosis of nail Peripheral vascular disease, unspecified (HCC) Peripheral vascular disease, unspecified [facility] Diagnosis Onychomycosis- Primary Dermatophytosis of nail Peripheral vascular disease, unspecified (HCC) Peripheral vascular disease, unspecified [facility] Diagnosis Onychomycosis- Primary Dermatophytosis of nail Peripheral vascular disease, unspecified (HCC) Peripheral vascular disease, unspecified [facility]* Diagnosis Epiretinal membrane (ERM) of left eye- Primary Nonexudative age-related macular degeneration, bilateral, early dry stage PVD (posterior vitreous detachment), bilateral Pseudophakia of both eyes Lens replaced by other means Essential hypertension Unspecified essential hypertension Hypercholesteremia Pure hypercholesterolemia Osteoarthritis, unspecified osteoarthritis type, unspecified site [facility] [place] [facility] Diagnosis Routine general medical examination at health care facility- Primary Routine general medical examination at a health care facility Benign prostatic hyperplasia, unspecified whether lower urinary tract symptoms present Primary hypertension Unspecified essential hypertension Peripheral arterial occlusive disease (CMS/HCC) Unspecified peripheral vascular disease Abdominal aneurysm (CMS/HCC) 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 Mixed hyperlipidemia Infrarenal abdominal aortic aneurysm (AAA) without rupture ([facility]/HCC) documented in this encounter [facility] Work Phone: Evaluation note* Diagnosis Chronic right shoulder pain- Primary Pain in joint, shoulder region documented in this encounter [facility] Work Phone: Evaluation note* Diagnosis Dizziness- Primary Dizziness and giddiness Vertigo Dizziness and giddiness documented in this encounter [facility] Work Phone: Evaluation note* Diagnosis Epiretinal membrane (ERM) of left eye- Primary Nonexudative age-related macular degeneration, bilateral, early dry stage PVD (posterior vitreous detachment), bilateral Pseudophakia of both eyes Lens replaced by other means Essential hypertension Unspecified essential hypertension Hypercholesteremia Pure hypercholesterolemia [facility] [place] [facility] Diagnosis Benign prostatic hyperplasia with lower urinary tract symptoms, symptom details unspecified Nocturia Erectile dysfunction, unspecified erectile dysfunction type Urinary frequency Nocturia associated with benign prostatic hyperplasia documented in this encounter [facility] Work Phone: Evaluation note* Diagnosis 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- Primary Esophageal reflux documented in this encounter [facility] Work Phone: Evaluation note* Diagnosis Urinary frequency- Primary Dysuria documented in this encounter [facility] Work Phone: Evaluation note* Diagnosis Ingrown nail- Primary Ingrowing nail documented in this encounter [facility] note* Diagnosis Ingrown nail- Primary Ingrowing nail [facility] Diagnosis Ingrown nail- Primary Ingrowing nail Peripheral vascular disease, unspecified (HCC) Peripheral vascular disease, unspecified [facility]* Diagnosis Hiatal hernia- Primary Diaphragmatic hernia without mention of obstruction or gangrene 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 Esophageal reflux documented in this encounter [facility] Work Phone: Evaluation note* Diagnosis Primary hypertension- Primary Unspecified essential hypertension Screening for prostate cancer Special screening for malignant neoplasm of prostate Mixed hyperlipidemia 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 Esophageal reflux Benign prostatic 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 lower urinary tract symptoms Osteoarthritis of spine with radiculopathy, lumbosacral region MARIANGEL (generalized anxiety disorder) Generalized anxiety disorder Vertigo Dizziness and giddiness Inflammatory polyarthropathy (CMS/HCC) Unspecified 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 (CMS/HCC) Unspecified peripheral vascular disease Abdominal aneurysm ([facility]/HCC) 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 documented in this encounter [facility] Work Phone: Evaluation note* Diagnosis 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 Esophageal reflux Hiatal hernia Diaphragmatic hernia without mention of obstruction or gangrene documented in this encounter [facility] Work Phone: [phone] note* Diagnosis 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- Primary Esophageal reflux Hiatal hernia Diaphragmatic hernia without mention of obstruction or gangrene documented in this encounter [facility] Work Phone: [phone] note* Diagnosis Dizziness- Primary Dizziness and giddiness Generalized weakness documented in this encounter [facility] Work Phone: Evaluation note* Diagnosis Onychomycosis- Primary Dermatophytosis of nail PAD (peripheral artery disease) ([facility]) Unspecified peripheral vascular disease [facility] Diagnosis Dizziness- Primary Dizziness and giddiness documented in this encounter [facility] Work Phone: Evaluation note* Diagnosis Vestibular migraine- Primary [facility] Diagnosis Onychomycosis- Primary Dermatophytosis of nail PAD (peripheral artery disease) ([facility]) Unspecified peripheral vascular disease [facility]* Diagnosis Nonexudative age-related macular degeneration, bilateral, early dry stage- Primary Epiretinal membrane (ERM) of left eye Pseudophakia of both eyes Lens replaced by other means Dry eye syndrome of both eyes Ocular migraine Other forms of migraine, without mention of intractable migraine without mention of status migrainosus Essential hypertension Unspecified essential hypertension Hypercholesteremia Pure hypercholesterolemia Anxiety Anxiety state, unspecified [facility] Pain in right shoulder documented in this encounter [facility] Work Phone: Evaluation note* Diagnosis Dizziness- Primary Dizziness and giddiness Benign prostatic hyperplasia, unspecified whether lower urinary tract symptoms present Hyperlipidemia, unspecified hyperlipidemia type 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 Esophageal reflux Hypertension, unspecified type Routine general medical examination at health care facility- Primary Routine general medical examination at a health care facility Benign prostatic hyperplasia, unspecified whether lower urinary tract symptoms present Primary hypertension Unspecified essential hypertension Peripheral arterial occlusive disease (CMS-HCC) Unspecified peripheral vascular disease Abdominal aneurysm (CMS-HCC) 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 Mixed hyperlipidemia 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) Chronic right shoulder pain- Primary Pain in joint, shoulder region 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- Primary Esophageal reflux Primary hypertension- Primary Unspecified essential hypertension Screening for prostate cancer Special screening for malignant neoplasm of prostate Mixed hyperlipidemia 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 Esophageal reflux Benign prostatic 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 lower urinary tract symptoms Osteoarthritis of spine with radiculopathy, lumbosacral region MARIANGEL (generalized anxiety disorder) Generalized anxiety disorder Vertigo Dizziness and giddiness 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 (CMS-HCC) Unspecified peripheral vascular disease Abdominal aneurysm (CMS-HCC) 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 Dizziness- Primary Dizziness and giddiness 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 Esophageal reflux Migraine with visual aura Auras Routine general medical examination at health care facility- Primary Routine general medical examination at a health care facility Mixed hyperlipidemia Primary hypertension Unspecified essential hypertension 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 Esophageal reflux Benign prostatic 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 lower urinary tract symptoms Osteoarthritis of spine with radiculopathy, lumbosacral region MARIANGEL (generalized anxiety disorder) Generalized anxiety disorder Anemia, unspecified type Abdominal aneurysm (CMS-HCC) 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 Peripheral arterial occlusive disease (CMS-HCC) Unspecified peripheral vascular disease 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, lumbar region Thoracic or lumbosacral neuritis or radiculitis, unspecified documented in this encounter [facility] Work Phone: Evaluation note* Diagnosis Dizziness- Primary Dizziness and giddiness Benign prostatic hyperplasia, unspecified whether lower urinary tract symptoms present Hyperlipidemia, unspecified hyperlipidemia type 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 Esophageal reflux Hypertension, unspecified type Routine general medical examination at health care facility- Primary Routine general medical examination at a health care facility Benign prostatic hyperplasia, unspecified whether lower urinary tract symptoms present Primary hypertension Unspecified essential hypertension Peripheral arterial occlusive disease (CMS-HCC) Unspecified peripheral vascular disease Abdominal aneurysm (CMS-HCC) 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 Mixed hyperlipidemia Infrarenal abdominal aortic aneurysm (AAA) without rupture ([facility]-HCC) Chronic right shoulder pain- Primary Pain in joint, shoulder region 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- Primary Esophageal reflux Primary hypertension- Primary Unspecified essential hypertension Screening for prostate cancer Special screening for malignant neoplasm of prostate Mixed hyperlipidemia 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 Esophageal reflux Benign prostatic 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 lower urinary tract symptoms Osteoarthritis of spine with radiculopathy, lumbosacral region MARIANGEL (generalized anxiety disorder) Generalized anxiety disorder Vertigo Dizziness and giddiness 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 (CMS-HCC) Unspecified peripheral vascular disease Abdominal aneurysm ([facility]-HCC) 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 Dizziness- Primary Dizziness and giddiness 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 Esophageal reflux Migraine with visual aura Auras Routine general medical examination at health care facility- Primary Routine general medical examination at a health care facility Mixed hyperlipidemia Primary hypertension Unspecified essential hypertension 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 Esophageal reflux Benign prostatic 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 lower urinary tract symptoms Osteoarthritis of spine with radiculopathy, lumbosacral region MARIANGEL (generalized anxiety disorder) Generalized anxiety disorder Anemia, unspecified type Abdominal aneurysm (CMS-HCC) 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 Peripheral arterial occlusive disease (CMS-HCC) Unspecified peripheral vascular disease 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 TIA (transient ischemic attack) Unspecified transient cerebral ischemia 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), and cerebral infarction without residual deficits documented in this encounter [facility] Work Phone: Evaluation note* Diagnosis Dizziness- Primary Dizziness and giddiness Benign prostatic hyperplasia, unspecified whether lower urinary tract symptoms present Hyperlipidemia, unspecified hyperlipidemia type 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 Esophageal reflux Hypertension, unspecified type Routine general medical examination at health care facility- Primary Routine general medical examination at a health care facility Benign prostatic hyperplasia, unspecified whether lower urinary tract symptoms present Primary hypertension Unspecified essential hypertension Peripheral arterial occlusive disease (CMS-HCC) Unspecified peripheral vascular disease Abdominal aneurysm (CMS-HCC) 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 Mixed hyperlipidemia 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) Chronic right shoulder pain- Primary Pain in joint, shoulder region 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- Primary Esophageal reflux Primary hypertension- Primary Unspecified essential hypertension Screening for prostate cancer Special screening for malignant neoplasm of prostate Mixed hyperlipidemia 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 Esophageal reflux Benign prostatic 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 lower urinary tract symptoms Osteoarthritis of spine with radiculopathy, lumbosacral region MARIANGEL (generalized anxiety disorder) Generalized anxiety disorder Vertigo Dizziness and giddiness 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 (CMS-HCC) Unspecified peripheral vascular disease Abdominal aneurysm ([facility]-HCC) 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 Dizziness- Primary Dizziness and giddiness 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 Esophageal reflux Migraine with visual aura Auras Routine general medical examination at health care facility- Primary Routine general medical examination at a health care facility Mixed hyperlipidemia Primary hypertension Unspecified essential hypertension 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 Esophageal reflux Benign prostatic 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 lower urinary tract symptoms Osteoarthritis of spine with radiculopathy, lumbosacral region MARIANGEL (generalized anxiety disorder) Generalized anxiety disorder Anemia, unspecified type Abdominal aneurysm (CMS-HCC) 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 Peripheral arterial occlusive disease ([facility]-HCC) Unspecified peripheral vascular disease 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 Vertigo- Primary Dizziness and giddiness Hypertension, unspecified type MARIANGEL (generalized anxiety disorder) Generalized anxiety disorder 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 Esophageal reflux Hyperlipidemia, unspecified hyperlipidemia type Migraine with visual aura Palpitations documented in this encounter [facility] Work Phone: Evaluation note* Diagnosis Dizziness- Primary Dizziness and giddiness Benign prostatic hyperplasia, unspecified whether lower urinary tract symptoms present Hyperlipidemia, unspecified hyperlipidemia type 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 Esophageal reflux Hypertension, unspecified type Routine general medical examination at health care facility- Primary Routine general medical examination at a health care facility Benign prostatic hyperplasia, unspecified whether lower urinary tract symptoms present Primary hypertension Unspecified essential hypertension Peripheral arterial occlusive disease (CMS-HCC) Unspecified peripheral vascular disease Abdominal aneurysm (CMS-HCC) 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 Mixed hyperlipidemia 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) Chronic right shoulder pain- Primary Pain in joint, shoulder region 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- Primary Esophageal reflux Primary hypertension- Primary Unspecified essential hypertension Screening for prostate cancer Special screening for malignant neoplasm of prostate Mixed hyperlipidemia 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 Esophageal reflux Benign prostatic 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 lower urinary tract symptoms Osteoarthritis of spine with radiculopathy, lumbosacral region MARIANGEL (generalized anxiety disorder) Generalized anxiety disorder Vertigo Dizziness and giddiness 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 (CMS-HCC) Unspecified peripheral vascular disease Abdominal aneurysm (CMS-HCC) 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 Dizziness- Primary Dizziness and giddiness 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 Esophageal reflux Migraine with visual aura Auras Routine general medical examination at health care facility- Primary Routine general medical examination at a health care facility Mixed hyperlipidemia Primary hypertension Unspecified essential hypertension 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 Esophageal reflux Benign prostatic 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 lower urinary tract symptoms Osteoarthritis of spine with radiculopathy, lumbosacral region MARIANGEL (generalized anxiety disorder) Generalized anxiety disorder Anemia, unspecified type Abdominal aneurysm (CMS-HCC) 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 Peripheral arterial occlusive disease (CMS-HCC) Unspecified peripheral vascular disease 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 Vertigo Dizziness and giddiness Palpitations documented in this encounter [facility] Work Phone: Evaluation note* Diagnosis 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- Primary 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 Mixed hyperlipidemia Mixed hyperlipidemia 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 Mixed hyperlipidemia Bradycardia Other specified cardiac dysrhythmias Onychomycosis- Primary Dermatophytosis of nail Peripheral vascular disease, unspecified (HCC) Peripheral vascular disease, unspecified [facility] D[facility]- Primary Dizziness and giddiness Benign prostatic hyperplasia, unspecified whether lower urinary tract symptoms present Hyperlipidemia, unspecified hyperlipidemia type 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 Esophageal reflux Hypertension, unspecified type Routine general medical examination at health care facility- Primary Routine general medical examination at a health care facility Benign prostatic hyperplasia, unspecified whether lower urinary tract symptoms present Primary hypertension Unspecified essential hypertension Peripheral arterial occlusive disease (CMS-HCC) Unspecified peripheral vascular disease Abdominal aneurysm (CMS-HCC) 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 Mixed hyperlipidemia 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) Chronic right shoulder pain- Primary Pain in joint, shoulder region 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- Primary Esophageal reflux Primary hypertension- Primary Unspecified essential hypertension Screening for prostate cancer Special screening for malignant neoplasm of prostate Mixed hyperlipidemia 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 Esophageal reflux Benign prostatic 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 lower urinary tract symptoms Osteoarthritis of spine with radiculopathy, lumbosacral region MARIANGEL (generalized anxiety disorder) Generalized anxiety disorder Vertigo Dizziness and giddiness 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 (CMS-HCC) Unspecified peripheral vascular disease Abdominal aneurysm (CMS-HCC) 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 Dizziness- Primary Dizziness and giddiness 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 Esophageal reflux Migraine with visual aura Auras Routine general medical examination at health care facility- Primary Routine general medical examination at a health care facility Mixed hyperlipidemia Primary hypertension Unspecified essential hypertension 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 Esophageal reflux Benign prostatic 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 lower urinary tract symptoms Osteoarthritis of spine with radiculopathy, lumbosacral region MARIANGEL (generalized anxiety disorder) Generalized anxiety disorder Anemia, unspecified type Abdominal aneurysm (CMS-HCC) 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 Peripheral arterial occlusive disease (CMS-HCC) Unspecified peripheral vascular disease 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 Left hip pain Pain in joint, pelvic region and thigh documented in this encounter [facility] Work Phone: Evaluation note* Diagnosis Dizziness- Primary Dizziness and giddiness Benign prostatic hyperplasia, unspecified whether lower urinary tract symptoms present Hyperlipidemia, unspecified hyperlipidemia type 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 Esophageal reflux Hypertension, unspecified type Routine general medical examination at health care facility- Primary Routine general medical examination at a health care facility Benign prostatic hyperplasia, unspecified whether lower urinary tract symptoms present Primary hypertension Unspecified essential hypertension Peripheral arterial occlusive disease (CMS-HCC) Unspecified peripheral vascular disease Abdominal aneurysm (CMS-HCC) 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 Mixed hyperlipidemia 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) Chronic right shoulder pain- Primary Pain in joint, shoulder region 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- Primary Esophageal reflux Primary hypertension- Primary Unspecified essential hypertension Screening for prostate cancer Special screening for malignant neoplasm of prostate Mixed hyperlipidemia 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 Esophageal reflux Benign prostatic 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 lower urinary tract symptoms Osteoarthritis of spine with radiculopathy, lumbosacral region MARIANGEL (generalized anxiety disorder) Generalized anxiety disorder Vertigo Dizziness and giddiness 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 (CMS-HCC) Unspecified peripheral vascular disease Abdominal aneurysm (CMS-HCC) 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 Dizziness- Primary Dizziness and giddiness 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 Esophageal reflux Migraine with visual aura Auras Routine general medical examination at health care facility- Primary Routine general medical examination at a health care facility Mixed hyperlipidemia Primary hypertension Unspecified essential hypertension 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 Esophageal reflux Benign prostatic 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 lower urinary tract symptoms Osteoarthritis of spine with radiculopathy, lumbosacral region MARIANGEL (generalized anxiety disorder) Generalized anxiety disorder Anemia, unspecified type Abdominal aneurysm (CMS-HCC) 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 Peripheral arterial occlusive disease (CMS-HCC) Unspecified peripheral vascular disease 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 Abdominal aneurysm (CMS-HCC) 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) documented in this encounter [facility] Work Phone: Evaluation note* Diagnosis Dizziness- Primary Dizziness and giddiness Benign prostatic hyperplasia, unspecified whether lower urinary tract symptoms present Hyperlipidemia, unspecified hyperlipidemia type 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 Esophageal reflux Hypertension, unspecified type Routine general medical examination at health care facility- Primary Routine general medical examination at a health care facility Benign prostatic hyperplasia, unspecified whether lower urinary tract symptoms present Primary hypertension Unspecified essential hypertension Peripheral arterial occlusive disease (CMS-HCC) Unspecified peripheral vascular disease Abdominal aneurysm (CMS-HCC) 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 Mixed hyperlipidemia 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) Chronic right shoulder pain- Primary Pain in joint, shoulder region 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- Primary Esophageal reflux Primary hypertension- Primary Unspecified essential hypertension Screening for prostate cancer Special screening for malignant neoplasm of prostate Mixed hyperlipidemia 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 Esophageal reflux Benign prostatic 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 lower urinary tract symptoms Osteoarthritis of spine with radiculopathy, lumbosacral region MARIANGEL (generalized anxiety disorder) Generalized anxiety disorder Vertigo Dizziness and giddiness 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 (CMS-HCC) Unspecified peripheral vascular disease Abdominal aneurysm (CMS-HCC) 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 Dizziness- Primary Dizziness and giddiness 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 Esophageal reflux Migraine with visual aura Auras Routine general medical examination at health care facility- Primary Routine general medical examination at a health care facility Mixed hyperlipidemia Primary hypertension Unspecified essential hypertension 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 Esophageal reflux Benign prostatic 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 lower urinary tract symptoms Osteoarthritis of spine with radiculopathy, lumbosacral region MARIANGEL (generalized anxiety disorder) Generalized anxiety disorder Anemia, unspecified type Abdominal aneurysm (CMS-HCC) 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 Peripheral arterial occlusive disease (CMS-HCC) Unspecified peripheral vascular disease 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 TIA (transient ischemic attack) Unspecified transient cerebral ischemia 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 documented in this encounter [facility] Work Phone: Evaluation note* Diagnosis Dizziness- Primary Dizziness and giddiness Benign prostatic hyperplasia, unspecified whether lower urinary tract symptoms present Hyperlipidemia, unspecified hyperlipidemia type 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 Esophageal reflux Hypertension, unspecified type Routine general medical examination at health care facility- Primary Routine general medical examination at a health care facility Benign prostatic hyperplasia, unspecified whether lower urinary tract symptoms present Primary hypertension Unspecified essential hypertension Peripheral arterial occlusive disease (CMS-HCC) Unspecified peripheral vascular disease Abdominal aneurysm (CMS-HCC) 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 Mixed hyperlipidemia 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) Chronic right shoulder pain- Primary Pain in joint, shoulder region 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- Primary Esophageal reflux Primary hypertension- Primary Unspecified essential hypertension Screening for prostate cancer Special screening for malignant neoplasm of prostate Mixed hyperlipidemia 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 Esophageal reflux Benign prostatic 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 lower urinary tract symptoms Osteoarthritis of spine with radiculopathy, lumbosacral region MARIANGEL (generalized anxiety disorder) Generalized anxiety disorder Vertigo Dizziness and giddiness 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 (CMS-HCC) Unspecified peripheral vascular disease Abdominal aneurysm (CMS-HCC) 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 Dizziness- Primary Dizziness and giddiness 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 Esophageal reflux Migraine with visual aura Auras Routine general medical examination at health care facility- Primary Routine general medical examination at a health care facility Mixed hyperlipidemia Primary hypertension Unspecified essential hypertension 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 Esophageal reflux Benign prostatic 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 lower urinary tract symptoms Osteoarthritis of spine with radiculopathy, lumbosacral region MARIANGEL (generalized anxiety disorder) Generalized anxiety disorder Anemia, unspecified type Abdominal aneurysm (CMS-HCC) 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 Peripheral arterial occlusive disease (CMS-HCC) Unspecified peripheral vascular disease 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 Primary hypertension- Primary Unspecified essential hypertension Mixed hyperlipidemia 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 Esophageal reflux Benign prostatic 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 lower urinary tract symptoms Osteoarthritis of spine with radiculopathy, lumbosacral region MARIANGEL (generalized anxiety disorder) Generalized anxiety disorder Anemia, unspecified type Abdominal aneurysm (CMS-HCC) 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 Peripheral arterial occlusive disease (CMS-HCC) Unspecified peripheral vascular disease 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 Screening for prostate cancer Special screening for malignant neoplasm of prostate documented in this encounter [facility] Work Phone: Evaluation note* Diagnosis 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- Primary 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 Mixed hyperlipidemia Mixed hyperlipidemia 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 Mixed hyperlipidemia Bradycardia Other specified cardiac dysrhythmias Onychomycosis- Primary Dermatophytosis of nail Peripheral vascular disease, unspecified [facility] [place] [facility] Diagnosis 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- Primary 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 Mixed hyperlipidemia Mixed hyperlipidemia 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 Mixed hyperlipidemia Bradycardia Other specified cardiac dysrhythmias Onychomycosis- Primary Dermatophytosis of nail Peripheral vascular disease, unspecified [facility] D[facility]- Primary Dizziness and giddiness Benign prostatic hyperplasia, unspecified whether lower urinary tract symptoms present Hyperlipidemia, unspecified hyperlipidemia type 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 Esophageal reflux Hypertension, unspecified type Routine general medical examination at health care facility- Primary Routine general medical examination at a health care facility Benign prostatic hyperplasia, unspecified whether lower urinary tract symptoms present Primary hypertension Unspecified essential hypertension Peripheral arterial occlusive disease Unspecified peripheral vascular disease Abdominal aneurysm 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 Mixed hyperlipidemia 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 pain- Primary Pain in joint, shoulder region 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- Primary Esophageal reflux Primary hypertension- Primary Unspecified essential hypertension Screening for prostate cancer Special screening for malignant neoplasm of prostate Mixed hyperlipidemia 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 Esophageal reflux Benign prostatic 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 lower urinary tract symptoms Osteoarthritis of spine with radiculopathy, lumbosacral region MARIANGEL (generalized anxiety disorder) Generalized anxiety disorder Vertigo Dizziness and giddiness 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 Unspecified peripheral vascular disease Abdominal aneurysm 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 Dizziness- Primary Dizziness and giddiness 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 Esophageal reflux Migraine with visual aura Auras Routine general medical examination at health care facility- Primary Routine general medical examination at a health care facility Mixed hyperlipidemia Primary hypertension Unspecified essential hypertension 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 Esophageal reflux Benign prostatic 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 lower urinary tract symptoms Osteoarthritis of spine with radiculopathy, lumbosacral region MARIANGEL (generalized anxiety disorder) Generalized anxiety disorder Anemia, unspecified type Abdominal aneurysm 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 Peripheral arterial occlusive disease Unspecified peripheral vascular disease 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 Primary hypertension- Primary Unspecified essential hypertension Mixed hyperlipidemia 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 Esophageal reflux Benign prostatic 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 lower urinary tract symptoms Osteoarthritis of spine with radiculopathy, lumbosacral region MARIANGEL (generalized anxiety disorder) Generalized anxiety disorder Anemia, unspecified type Abdominal aneurysm 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 Peripheral arterial occlusive disease Unspecified peripheral vascular disease 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 Screening for prostate cancer Special screening for malignant neoplasm of prostate Rib pain on left side- Primary Rib pain on left side documented in this encounter [facility] Work Phone: Evaluation note* Diagnosis Dizziness- Primary Dizziness and giddiness Benign prostatic hyperplasia, unspecified whether lower urinary tract symptoms present Hyperlipidemia, unspecified hyperlipidemia type 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 Esophageal reflux Hypertension, unspecified type Routine general medical examination at health care facility- Primary Routine general medical examination at a health care facility Benign prostatic hyperplasia, unspecified whether lower urinary tract symptoms present Primary hypertension Unspecified essential hypertension Peripheral arterial occlusive disease Unspecified peripheral vascular disease Abdominal aneurysm 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 Mixed hyperlipidemia 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 pain- Primary Pain in joint, shoulder region 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- Primary Esophageal reflux Primary hypertension- Primary Unspecified essential hypertension Screening for prostate cancer Special screening for malignant neoplasm of prostate Mixed hyperlipidemia 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 Esophageal reflux Benign prostatic 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 lower urinary tract symptoms Osteoarthritis of spine with radiculopathy, lumbosacral region MARIANGEL (generalized anxiety disorder) Generalized anxiety disorder Vertigo Dizziness and giddiness 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 Unspecified peripheral vascular disease Abdominal aneurysm 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 Dizziness- Primary Dizziness and giddiness 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 Esophageal reflux Migraine with visual aura Auras Routine general medical examination at health care facility- Primary Routine general medical examination at a health care facility Mixed hyperlipidemia Primary hypertension Unspecified essential hypertension 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 Esophageal reflux Benign prostatic 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 lower urinary tract symptoms Osteoarthritis of spine with radiculopathy, lumbosacral region MARIANGEL (generalized anxiety disorder) Generalized anxiety disorder Anemia, unspecified type Abdominal aneurysm 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 Peripheral arterial occlusive disease Unspecified peripheral vascular disease 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 Primary hypertension- Primary Unspecified essential hypertension Mixed hyperlipidemia 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 Esophageal reflux Benign prostatic 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 lower urinary tract symptoms Osteoarthritis of spine with radiculopathy, lumbosacral region MARIANGEL (generalized anxiety disorder) Generalized anxiety disorder Anemia, unspecified type Abdominal aneurysm 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 Peripheral arterial occlusive disease Unspecified peripheral vascular disease 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 Screening for prostate cancer Special screening for malignant neoplasm of prostate Rib pain on left side documented in this encounter [facility] Work Phone: Evaluation note* Diagnosis Dizziness- Primary Dizziness and giddiness Benign prostatic hyperplasia, unspecified whether lower urinary tract symptoms present Hyperlipidemia, unspecified hyperlipidemia type 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 Esophageal reflux Hypertension, unspecified type Routine general medical examination at health care facility- Primary Routine general medical examination at a health care facility Benign prostatic hyperplasia, unspecified whether lower urinary tract symptoms present Primary hypertension Unspecified essential hypertension Peripheral arterial occlusive disease Unspecified peripheral vascular disease Abdominal aneurysm 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 Mixed hyperlipidemia 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 pain- Primary Pain in joint, shoulder region 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- Primary Esophageal reflux Primary hypertension- Primary Unspecified essential hypertension Screening for prostate cancer Special screening for malignant neoplasm of prostate Mixed hyperlipidemia 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 Esophageal reflux Benign prostatic 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 lower urinary tract symptoms Osteoarthritis of spine with radiculopathy, lumbosacral region MARIANGEL (generalized anxiety disorder) Generalized anxiety disorder Vertigo Dizziness and giddiness 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 Unspecified peripheral vascular disease Abdominal aneurysm 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 Dizziness- Primary Dizziness and giddiness 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 Esophageal reflux Migraine with visual aura Auras Routine general medical examination at health care facility- Primary Routine general medical examination at a health care facility Mixed hyperlipidemia Primary hypertension Unspecified essential hypertension 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 Esophageal reflux Benign prostatic 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 lower urinary tract symptoms Osteoarthritis of spine with radiculopathy, lumbosacral region MARIANGEL (generalized anxiety disorder) Generalized anxiety disorder Anemia, unspecified type Abdominal aneurysm 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 Peripheral arterial occlusive disease Unspecified peripheral vascular disease 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 Primary hypertension- Primary Unspecified essential hypertension Mixed hyperlipidemia 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 Esophageal reflux Benign prostatic 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 lower urinary tract symptoms Osteoarthritis of spine with radiculopathy, lumbosacral region MARIANGEL (generalized anxiety disorder) Generalized anxiety disorder Anemia, unspecified type Abdominal aneurysm 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 Peripheral arterial occlusive disease Unspecified peripheral vascular disease 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 Screening for prostate cancer Special screening for malignant neoplasm of prostate Neck pain- Primary Cervicalgia documented in this encounter [facility] Work Phone: Evaluation note* Diagnosis Dizziness- Primary Dizziness and giddiness Benign prostatic hyperplasia, unspecified whether lower urinary tract symptoms present Hyperlipidemia, unspecified hyperlipidemia type 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 Esophageal reflux Hypertension, unspecified type Routine general medical examination at health care facility- Primary Routine general medical examination at a health care facility Benign prostatic hyperplasia, unspecified whether lower urinary tract symptoms present Primary hypertension Unspecified essential hypertension Peripheral arterial occlusive disease Unspecified peripheral vascular disease Abdominal aneurysm 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 Mixed hyperlipidemia 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 pain- Primary Pain in joint, shoulder region 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- Primary Esophageal reflux Primary hypertension- Primary Unspecified essential hypertension Screening for prostate cancer Special screening for malignant neoplasm of prostate Mixed hyperlipidemia 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 Esophageal reflux Benign prostatic 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 lower urinary tract symptoms Osteoarthritis of spine with radiculopathy, lumbosacral region MARIANGEL (generalized anxiety disorder) Generalized anxiety disorder Vertigo Dizziness and giddiness 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 Unspecified peripheral vascular disease Abdominal aneurysm 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 Dizziness- Primary Dizziness and giddiness 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 Esophageal reflux Migraine with visual aura Auras Routine general medical examination at health care facility- Primary Routine general medical examination at a health care facility Mixed hyperlipidemia Primary hypertension Unspecified essential hypertension 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 Esophageal reflux Benign prostatic 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 lower urinary tract symptoms Osteoarthritis of spine with radiculopathy, lumbosacral region MARIANGEL (generalized anxiety disorder) Generalized anxiety disorder Anemia, unspecified type Abdominal aneurysm 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 Peripheral arterial occlusive disease Unspecified peripheral vascular disease 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 Primary hypertension- Primary Unspecified essential hypertension Mixed hyperlipidemia 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 Esophageal reflux Benign prostatic 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 lower urinary tract symptoms Osteoarthritis of spine with radiculopathy, lumbosacral region MARIANGEL (generalized anxiety disorder) Generalized anxiety disorder Anemia, unspecified type Abdominal aneurysm 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 Peripheral arterial occlusive disease Unspecified peripheral vascular disease 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 Screening for prostate cancer Special screening for malignant neoplasm of prostate Neck pain Cervicalgia documented in this encounter [facility] Work Phone: Evaluation note* Diagnosis Dizziness- Primary Dizziness and giddiness Benign prostatic hyperplasia, unspecified whether lower urinary tract symptoms present Hyperlipidemia, unspecified hyperlipidemia type 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 Esophageal reflux Hypertension, unspecified type Routine general medical examination at health care facility- Primary Routine general medical examination at a health care facility Benign prostatic hyperplasia, unspecified whether lower urinary tract symptoms present Primary hypertension Unspecified essential hypertension Peripheral arterial occlusive disease Unspecified peripheral vascular disease Abdominal aneurysm 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 Mixed hyperlipidemia 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 pain- Primary Pain in joint, shoulder region 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- Primary Esophageal reflux Primary hypertension- Primary Unspecified essential hypertension Screening for prostate cancer Special screening for malignant neoplasm of prostate Mixed hyperlipidemia 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 Esophageal reflux Benign prostatic 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 lower urinary tract symptoms Osteoarthritis of spine with radiculopathy, lumbosacral region MARIANGEL (generalized anxiety disorder) Generalized anxiety disorder Vertigo Dizziness and giddiness 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 Unspecified peripheral vascular disease Abdominal aneurysm 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 Dizziness- Primary Dizziness and giddiness 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 Esophageal reflux Migraine with visual aura Auras Routine general medical examination at health care facility- Primary Routine general medical examination at a health care facility Mixed hyperlipidemia Primary hypertension Unspecified essential hypertension 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 Esophageal reflux Benign prostatic 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 lower urinary tract symptoms Osteoarthritis of spine with radiculopathy, lumbosacral region MARIANGEL (generalized anxiety disorder) Generalized anxiety disorder Anemia, unspecified type Abdominal aneurysm 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 Peripheral arterial occlusive disease Unspecified peripheral vascular disease 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 Primary hypertension- Primary Unspecified essential hypertension Mixed hyperlipidemia 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 Esophageal reflux Benign prostatic 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 lower urinary tract symptoms Osteoarthritis of spine with radiculopathy, lumbosacral region MARIANGEL (generalized anxiety disorder) Generalized anxiety disorder Anemia, unspecified type Abdominal aneurysm 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 Peripheral arterial occlusive disease Unspecified peripheral vascular disease 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 Screening for prostate cancer Special screening for malignant neoplasm of prostate Closed fracture of right orbit, initial encounter (Multi)- Primary Intracranial hemorrhage (Multi) Unspecified intracranial hemorrhage Multiple closed fractures of pelvis with disruption of pelvic ring, initial encounter (Multi) documented in this encounter [facility] Work Phone: Evaluation note* Diagnosis Dizziness- Primary Dizziness and giddiness Benign prostatic hyperplasia, unspecified whether lower urinary tract symptoms present Hyperlipidemia, unspecified hyperlipidemia type 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 Esophageal reflux Hypertension, unspecified type Routine general medical examination at health care facility- Primary Routine general medical examination at a health care facility Benign prostatic hyperplasia, unspecified whether lower urinary tract symptoms present Primary hypertension Unspecified essential hypertension Peripheral arterial occlusive disease Unspecified peripheral vascular disease Abdominal aneurysm 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 Mixed hyperlipidemia 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 pain- Primary Pain in joint, shoulder region 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- Primary Esophageal reflux Primary hypertension- Primary Unspecified essential hypertension Screening for prostate cancer Special screening for malignant neoplasm of prostate Mixed hyperlipidemia 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 Esophageal reflux Benign prostatic 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 lower urinary tract symptoms Osteoarthritis of spine with radiculopathy, lumbosacral region MARIANGEL (generalized anxiety disorder) Generalized anxiety disorder Vertigo Dizziness and giddiness 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 Unspecified peripheral vascular disease Abdominal aneurysm 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 Dizziness- Primary Dizziness and giddiness 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 Esophageal reflux Migraine with visual aura Auras Routine general medical examination at health care facility- Primary Routine general medical examination at a health care facility Mixed hyperlipidemia Primary hypertension Unspecified essential hypertension 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 Esophageal reflux Benign prostatic 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 lower urinary tract symptoms Osteoarthritis of spine with radiculopathy, lumbosacral region MARIANGEL (generalized anxiety disorder) Generalized anxiety disorder Anemia, unspecified type Abdominal aneurysm 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 Peripheral arterial occlusive disease Unspecified peripheral vascular disease 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 Primary hypertension- Primary Unspecified essential hypertension Mixed hyperlipidemia 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 Esophageal reflux Benign prostatic 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 lower urinary tract symptoms Osteoarthritis of spine with radiculopathy, lumbosacral region MARIANGEL (generalized anxiety disorder) Generalized anxiety disorder Anemia, unspecified type Abdominal aneurysm 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 Peripheral arterial occlusive disease Unspecified peripheral vascular disease 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 Screening for prostate cancer Special screening for malignant neoplasm of prostate Fall, initial encounter- Primary Fall, initial encounter Open fracture of roof of right orbit, initial encounter (Multi) Closed bilateral fracture of pubic rami, initial encounter (Multi) SAH (subarachnoid hemorrhage) (Multi) Subarachnoid hemorrhage Syncope, unspecified syncope type Urinary retention Unspecified retention of urine Pseudophakia of both eyes Lens replaced by other means documented in this encounter [facility] Work Phone: History of Present illness Narrative* The patient is being seen for the subsequent annual wellness visit. * Past Medical, Surgical and Family History: reviewed and updated in chart. * Medications and Supplements: Medications and supplements, including calcium and vitamins reviewed and updated in chart. * No, the patient is not using opioids. * Patient Self Assessment of Health Status: good. * Tobacco use: Non-User * Alcohol use: Non-User * Illicit drug use: Non-User * Current diet: well balanced diet. * Exercise Frequency: regularly. * Depression/Suicide Screening: . * During the past 2 weeks, the patient has not felt down, depressed or hopeless. * During the past 2 weeks, the patient has not felt little interest or pleasure in doing things. * Hearing Impairment: none. * Cognitive Impairment: No cognitive impairment observed. * Bathing: performs independently. * Dressing: performs independently. * Walking: performs independently. * Managing Finances: performs independently. * Shopping: performs independently. * Managing Medications: performs independently. * Housework / Basic Home Maintenance: performs independently. * Falls Risk Screening:. FAWN has not fallen in the last 6 months. * Home safety risk factors: none. * No headache, chest pain, shortness of breath, dizziness, lightheadedness, or edema * Taking PPI daily without breakthrough symptoms. Reviewed dietary, caffeine, tobacco, alcohol, and NSAID use. No dyspepsia, dysphagia, reflux, melena, or abdominal pain. * Follows with Rheumatology on a regular basis * no trouble with voice or talking, some chronic visual changes (sees Optho on a regular basis) * has some chronic LBP [facility] Work Phone: History of Present illness Narrative* LBP HX x 6yrs. L RTSR done last August. The patient's main shldr complaint is weakness and LB complaint is discomfort with bending. Continue with L shldr PRE and lumbar core work, ROM and trunk mech trng as radha. * Clinical Presentation: Stable and/or uncomplicated characteristics. * Level of Complexity: low * Problem List: activity limitations, ADLs/IADLs/self care skills, decreased functional level, decreased knowledge of HEP, decreased knowledge of precautions, pain, range of motion/joint mobility, strength and transfers. [facility] Work Phone: History of Present illness Narrative* Patient ID confirmed using Name and . * Patient wearing mask throughout session today d/t COVID-19 precautions. * Patient with good tolerance to treatment, no c/o increased pain/discomfort in clinic. [facility] Work Phone: History of Present illness Narrative* Patient identified by name & . Patient wore a mask during treatment d/t Covid-19 precautions. * Treatment consisted of ther ex's for core strengthening and L shoulder strengthening. No pain in low back or left shoulder with ex's today. Ex's that can be done bilaterally caused discomfort in R shoulder, so they were modified to just completing them with L UE. [facility] Work Phone: History of Present illness Narrative* Patient ID confirmed using Name and . * Patient wearing mask throughout session today d/t COVID-19 precautions. * Patient with good tolerance to treatment, no c/o increased pain/discomfort in clinic. Patient making progress with shoulder strength as indicated by increased resistance this session. [facility] Work Phone: History of Present illness NarrativePatient was identified by name and date. Reviewed HEP. He was able to progress reps with corestability exercises without c/o. Instructed in thera cane for self massage techniques to cont in HEP. He voiced good understanding. [facility] Work Phone: History of Present illness Narrative* No headache, chest pain, shortness of breath, dizziness, lightheadedness, or edema * Taking PPI daily without breakthrough symptoms. Reviewed dietary, caffeine, tobacco, alcohol, and NSAID use. No dyspepsia, dysphagia, reflux, melena, or abdominal pain. * recovered from COVID, had monoclonal antibodies, still has a cough * seen pain medicine for LBP, had MRI of the back recently, to F/U with pain medicine (11/11 F/U), some pain in left leg * Sees Abel (rheum) * some trouble with taste (prior to COVID) * Hx of ocular migraines (less frequent than prior [facility] Work Phone: History of Present illness Narrative* The patient is being seen for the subsequent annual wellness visit. * Past Medical, Surgical and Family History: reviewed and updated in chart. * Medications and Supplements: Review of all medications by a prescribing practitioner or clinical pharmacist (such as prescriptions, OTCs, herbal therapies and supplements) documented in the medical record. * No, the patient is not using opioids. * Patient Self Assessment of Health Status: fair. * Tobacco use: Non-User * Alcohol use: Non-User * Illicit drug use: Non-User * Current diet: well balanced diet. * Exercise Frequency: infrequently. * Depression/Suicide Screening: . * During the past 2 weeks, the patient has not felt down, depressed or hopeless. * During the past 2 weeks, the patient has not felt little interest or pleasure in doing things. * Hearing Impairment: Patient has significant hearing impairment, bilaterally, He uses a hearing aid. * Cognitive Impairment: No cognitive impairment observed. * Bathing: performs independently. * Dressing: performs independently. * Walking: performs independently. * Managing Finances: performs independently. * Shopping: performs independently. * Managing Medications: performs independently. * Housework / Basic Home Maintenance: performs independently. * Falls Risk Screening:. FAWN has not fallen in the last 6 months. * Home safety risk factors: none. * Advance directives:. Patient has living will. Patient has healthcare POA. * Patient's End of Life Decisions: End of life decisions were reviewed with the patient. I agree to follow the patient's decisions. * No headache, chest pain, shortness of breath, dizziness, lightheadedness, or edema * Taking PPI daily without breakthrough symptoms. Reviewed dietary, caffeine, tobacco, alcohol, and NSAID use. No dyspepsia, dysphagia, reflux, melena, or abdominal pain. * Seen dermatology, had BCC treated, had Mohls procedure done * Sees Rheumatology on a regular basis, joint pain stable, occ APAP helps * visual auras less frequent, no HAs * smell and taste still not normal * Seen pain medicine for lumbar radiculopathy [facility] Work Phone: History of Present illness Narrative* 87-year-old gentleman with a medical history of coronary artery disease, hypertension, previous TIA, here to establish care: * Problem #1 history of coronary artery disease * -Per notes he has a history of near total occlusion of his RCA that has been conservatively managedin the past with EECP and medications (diagnosed in 2007; confirmed on repeat angiogram 2010). No prior history of stents or open heart surgery. * Problem #2 hypertension * -Current medications include benazepril 40 mg daily, Lopressor 25 mg twice daily * Problem #3 previous history of TIA * -Due to a history of TIA he was asked to take 325 mg of aspirin. * Denies any chest discomfort or shortness of breath with exertion. Denies any orthopnea/PND/lower extremity edema. Denies any dizziness or lightheadedness. Normotensive in clinic today. [id number] [address] Work Phone: History of Present illness Narrative* The patient is being seen for the subsequent annual wellness visit. * Past Medical, Surgical and Family History: reviewed and updated in chart. * Medications and Supplements: Review of all medications by a prescribing practitioner or clinical pharmacist (such as prescriptions, OTCs, herbal therapies and supplements) documented in the medical record. * No, the patient is not using opioids. * Patient Self Assessment of Health Status: fair. * Tobacco use: Non-User * Alcohol use: Non-User * Illicit drug use: Non-User * Current diet: well balanced diet. * Exercise Frequency: infrequently. * Depression/Suicide Screening: . * During the past 2 weeks, the patient has not felt down, depressed or hopeless. * During the past 2 weeks, the patient has not felt little interest or pleasure in doing things. * Hearing Impairment: Patient has significant hearing impairment, bilaterally, He uses a hearing aid. * Cognitive Impairment: No cognitive impairment observed. * Bathing: performs independently. * Dressing: performs independently. * Walking: performs independently. * Managing Finances: performs independently. * Shopping: performs independently. * Managing Medications: performs independently. * Housework / Basic Home Maintenance: performs independently. * Falls Risk Screening:. FAWN has not fallen in the last 6 months. * Home safety risk factors: none. * Advance directives:. Patient has living will. Patient has healthcare POA. * Patient's End of Life Decisions: End of life decisions were reviewed with the patient. I agree to follow the patient's decisions. * No headache, chest pain, shortness of breath, dizziness, lightheadedness, or edema * Taking PPI daily without breakthrough symptoms. Reviewed dietary, caffeine, tobacco, alcohol, and NSAID use. No dyspepsia, dysphagia, reflux, melena, or abdominal pain. 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 No prior history of stents or open heart surgery. * Problem #2 hypertension * -Current medications include benazepril 40 mg daily, Lopressor 25 mg twice daily * Problem #3 previous history of TIA * -Due to a history of TIA he was asked to take 325 mg of aspirin. * Denies any chest discomfort or shortness of breath with exertion. Denies any orthopnea/PND/lower extremity edema. Denies any dizziness or lightheadedness. Normotensive in clinic today. [id number] [address] Work Phone: Instructions* Name Dates Details Instructions not documented [facility] Work Phone: Reason for referral (narrative)* Consultation (Routine) - Authorized Specialty Diagnoses / Procedures Referred By Foster bland Referred To Contact Gastroenterology Diagnoses 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 Don Barrera MD [address] [place] [address] Referral ID Status Reason Start Date Expiration Date Visits Requested Visits Authorized [id number] Authorized Specialty Services Required 09/28/2023 09/27/2024 1 1 Scheduling Instructions Arrange for EGD with [facility] Work Phone: Reason for referral (narrative)* Consultation (Routine) - Authorized Specialty Diagnoses / Procedures Referred By Foster bland Referred To Contact Primary Care Diagnoses Screening for prostate cancer Mixed hyperlipidemia Primary hypertension 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 Benign prostatic 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 lower urinary tract symptoms Osteoarthritis of spine with radiculopathy, lumbosacral region MARIANGEL (generalized anxiety disorder) Vertigo Procedures Follow Up In Primary Care - Established Don Barrera MD [address] [place] [address] Referral ID Status Reason Start Date Expiration Date V isits Requested Visits Authorized [id number] Authorized 11/05/2023 11/04/2024 1 1 * Consultation (Routine) - Authorized Specialty Diagnoses / Procedures Referred By Foster bland Referred To Contact Pain Medicine Diagnoses Osteoarthritis of spine with radiculopathy, lumbosacral region Don Barrera MD [address] [place] [address] Mack Galeana MD [address] [place] [address] Referral ID Status Reason Start Date Expiration Date Visits Requested Visits Authorized Authorized Consult and Treat 11/05/2023 11/04/2024 1 1 [facility] Work Phone: reason for visit Narrative* Initial Evaluation . lumbar DJD; S/P RTSR done Aug. * Referred by: [facility] Work Phone: reason for visit Narrative* Cardiovascular (Routine) - Authorized Specialty Diagnoses / Procedures Referred By Foster bland Referred To Contact Cardiology Diagnoses Vertigo Palpitations Procedures Holter Or Event Floorperson Don Barrera MD [address] [address] Phone: tel: fax: Referral ID Status Reason Start Date Expiration Date V isits Requested Visits Authorized [id number] Authorized 09/01/2024 09/01/2025 1 1 [facility] Work Phone: reason for visit Narrative* Imaging (Emergency) - Authorized Specialty Diagnoses / Procedures Referred By Contac t Referred To Contact Radiology Diagnoses Rib pain on left side Procedures XR ribs 2 views left w chest pa or ap Lincoln King, GRAPHIC DESIGN ASSISTANT-CLAIM TAKER [address] [place] [address] Phone: tel: fax: Referral ID Status Reason Start Date Expiration Date Visits Requested Visits Authorized [id number] Authorized Perform Procedure 04/10/2025 04/10/2026 1 1 [facility] Work Phone: Assessments Diagnosis Coronary artery disease invo lving [place] coronary artery of [place] heart without angina pectoris Diagnosis Arthritis of right hip- Primary 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 Diagnosis 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 Mixed hyperlipidemia Diagnosis Arthritis of left hip- Primary Diagnosis Status post left hip replacement Nontraumatic complete tear of left rotator cuff Diagnosis Nontraumatic complete tear of left rotator cuff Diagnosis Nontraumatic complete tear of left rotator cuff Rotator cuff arthropathy, left Diagnosis Rotator cuff arthropathy, left Diagnosis 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 Diagnosis 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, 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- Primary Diagnosis Status post left hip replacement- Primary Lumbar and sacral arthritis Lumbosacral spondylosis without myelopathy Diagnosis 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 Diagnosis Arthritis of left hip Diagnosis Status post left hip replacement History of Present Illness * Vijay Viveros MD - 04/28/2019 12:35 PM EDT Dictation on: 04/28/2019 12:38 PM by: VIJAY VIVEROS [[id number]] documented in this encounter* Heather Paredes MD - 05/19/2019 10:42 AM EDT Patient Name: Fawn Cameron MR #: [id number] Interventional Cardiology Heather Paredes MD, [facility] 05/19/19 Dear Don Barrera MD, Fawn Cameron was seen in follow up for : Problem Hyperlipidemia Coronary Artery Disease Involving [place] Coronary Artery of [place] Heart Without Angina Pectoris 2006-Occluded RCA mild diffuse other-- same in 2010 and did EECP Assessment and Plan 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 Good year no angina Doing well, Medications reviewed and will continue current meds Followup 1 year Hyperlipidemia Per PCP Thank you or allowing me to participate in the care of your patients. No orders of the defined types were placed in this encounter. Return in about 1 year (around 05/19/2020). EKG:Normal sinus rhythm. and IRRB Subjective: Hip issues Denies chest discomfort, sob, palpitations, pnd, orthopnea,edema or syncope. 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 HEENT: Normocephalic, Neck: Supple, Cardiovascular: Regular rate and rhythm. No , murmurs, No JVD, No Carotid Bruits,no LE edema Respiratory: Clear to auscultation bilaterally Abdominal: Soft, nontender, nondistended,. Skin: Normal turgor, well-hydrated, Extremities : No clubbing cyanosis Neurological: Cranial nerves 2 through 12 intact grossly. No focal neurological deficits noted. Psych: Normal mood and affect. ROS/MA were reviewed Home Medications: Patient's Medications New Prescriptions No medications on file Previous Medications ACETAMINOPHEN (TYLENOL) 500 MG TABLET Take 500 mg by mouth every 6 (six) hours as needed for pain. AMLODIPINE (NORVASC) 5 MG TABLET Take 5 mg by mouth daily . ASPIRIN 81 MG EC TABLET Take 81 mg by mouth daily. BENAZEPRIL (LOTENSIN) 40 MG TABLET Take 40 mg by mouth daily . FOLIC ACID (FOLVITE) 1 MG TABLET Take 2 mg by mouth daily. GLUCOSAMINE-CHONDROITIN 500-400 MG TABLET Take 1 tablet by mouth 3 (three) times a day . METHOTREXATE 2.5 MG TABLET Take 7.5 mg by mouth once a week. METOPROLOL TARTRATE (LOPRESSOR) 50 MG TABLET Take 50 mg by mouth 2 (two) times a day. MULTIVITAMIN (THERAGRAN) PER TABLET Take 1 tablet by mouth daily. OMEPRAZOLE (PRILOSEC) 20 MG CAPSULE Take 20 mg by mouth daily. PRAVASTATIN (PRAVACHOL) 40 MG TABLET Take 40 mg by mouth nightly . TAMSULOSIN (FLOMAX) 0.4 MG CAPSULE Take 0.4 mg by mouth daily. Modified Medications No medications on file Discontinued Medications No medications on file * Deb Menendez RN - 05/19/2019 10:19 AM EDT Review of Systems Constitution: Negative for diaphoresis, malaise/fatigue, weight gain and weight loss. HENT: Negative for hearing loss, nosebleeds and tinnitus. Eyes: Negative for blurred vision and visual disturbance. Cardiovascular: Positive for dyspnea on exertion. Negative for chest pain, claudication, cyanosis, irregular heartbeat, leg swelling, near-syncope, orthopnea, palpitations, paroxysmal nocturnal dyspnea and syncope. Respiratory: Positive for snoring. Negative for hemoptysis and shortness of breath. Endocrine: Negative for cold intolerance and heat intolerance. Hematologic/Lymphatic: Does not bruise/bleed easily. Skin: Negative for flushing, poor wound healing and rash. Musculoskeletal: Positive for back pain and myalgias. Negative for muscle weakness. Gastrointestinal: Negative for abdominal pain, change in bowel habit, melena, nausea and vomiting. Genitourinary: Negative for decreased libido and hematuria. Neurological: Negative for loss of balance and numbness. Psychiatric/Behavioral: Negative for memory loss. The patient is not nervous/anxious. documented in this encounter* Vijay Viveros MD - 07/14/2019 5:15 PM EDT Dictation on: 07/14/2019 5:16 PM by: VIJAY VIVEROS [[id number]] documented in this encounter* Vijay Viveros MD - 10/27/2019 4:55 PM EST He comes in today for 2 issues. Number 1, he is 6 weeks status post left hip replacement, which he is doing great. Number 2, is left shoulder rotator cuff tear. He says the left shoulder hurts more than the left hip. The hip is doing great. Today, he tells me about his right shoulder when he had a rotator cuff tear after a dislocation, but as far as the left shoulder goes, it has been bugging himsince the surgery. It has been painful. We tried 1 shot before, which he said did not help very much. He has been doing physical therapy on the shoulder, which he does not know if that has been helping much either. He would like to try 1 more shot. PHYSICAL EXAMINATION General: Today, he is awake, alert, and oriented x3. Ambulates with a cane in his hand. He is with his . Extremities: His left hip wound is healed. No signs of infection. No DVT signs or symptoms. His left upper extremity neurologically intact. 2+ pulses. Full range of motion of the hand, wrist, and elbow. The left shoulder has about 45 to 50 degrees of abduction, 70 degrees of forward flexion actively. Passively full range of motion. Tenderness to the anterior acromial hook and bicipital groove. Significant weakness in the infraspinatus and supraspinatus. Leg lengths are equal. IMAGING X-rays of the left hip, 2 views, reveal essentially normal-appearing left hip. X-rays of the left shoulder reveal preservation of glenohumeral joint space, osteophytes at the subacromial region. 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 2.Left shoulder rotator cuff tear. PLAN Today, under sterile conditions and with patient's consent, we injected 20 mg of Kenalog 2.5 cc of 1% lidocaine without epinephrine into the left shoulder subacromial space. Patient tolerated the procedure well. He will finish out therapy for the left shoulder. If the left shoulder fails to recoverwith therapy, shots, and time, we will have no choice but to proceed forward with an MRI scan and thoughts of surgery. As far as the left hip goes, I will see him in a year. documented in this encounter* Gema Phillips LPN - 12/01/2019 10:24 AM EST Fawn called today requesting an MRI of her shoulder. He states the injection and therapy has nothelped at all. documented in this encounter* Vijay Viveros MD - 12/15/2019 5:00 PM EST Dictation on: 12/15/2019 5:04 PM by: VIJAY VIVEROS [[id number]] documented in this encounter* Santiago Bates MD - 02/24/2020 11:26 AM EDT Dictation on: 02/24/2020 11:30 AM by: SANTIAGO BATES [[id number]] documented in this encounter* Santiago Bates MD - 04/27/2020 10:10 AM EDT Dictation on: 04/27/2020 10:11 AM by: SANTIAGO BATES [[id number]] documented in this encounter* Santiago Bates MD - 05/18/2020 11:13 AM EDT Fawn is doing very well after his reverse total shoulder replacement. He is having no pain. He does have about 90 degrees of abduction and forward flexion. He needs to work on external rotation yet. He is neurovascularly intact. His x- rays reveal good position of the reverse total shoulder replacement. I will plan on seeing him back in another month. documented in this encounter* Santiago Bates MD - 06/15/2020 11:36 AM EDT Dictation on: 06/15/2020 11:37 AM by: SANTIAGO BATES [[id number]] documented in this encounter* Vijay Viveros MD - 08/21/2020 10:43 AM EDT Dictation on: 08/21/2020 10:45 AM by: VIJAY VIVEROS [[id number]] documented in this encounter* Santiago Bates MD - 10/12/2020 12:13 PM EST Dictation on: 10/12/2020 12:15 PM by: SANTIAGO BATES [[id number]] documented in this encounter* Ann Villagomez LISW - 09/11/2019 3:27 PM EST COMPLEX DISCHARGE Date: 09/11/2019 Time: 4:51 PM Patient Name: Fawn Cameron Date of : 1935 Sex: Male Patient discharged to home today with [facility]. Gloria at [facility] notified of patient discharge. No further discharge needs identified. Case closed. Discharge Plan Shared UM/CC and RN Living Arrangements: Spouse/significant other Support Systems: Spouse/significant other Functional Status: Independent Type of Residence: Private residence Prior to Admission Home Care Services: No Regulatory Documentation: BPCI Bundle Letter Regulatory Documentation Status: Certified(went over paper with patient ) [facility] Disposition D/C Disposition: Home Health Care Services Related to Current Admission?: Yes Agency/Destination: [facility] Home Care Needs : Home health care Reason for Choice: Patient/Family prefernce * Vijay Viveros MD - 09/11/2019 2:13 PM EST Postoperative day 1 left total hip replacement. The hip is doing great. Unfortunately, he is not able to void. We tried a Duncan catheter last night. We did a voiding trial this morning. He has been unable to void. He wants to go home. He feels great, but he will have to go home with a leg bag catheter. Today, vital signs are stable, afebrile, hemoglobin 11.9, creatinine 0.86. Saturating 91% on room air. Chest, abdomen, cardiac exam benign. Left lower extremity wounds are healed. No signs of infection. No DVT signs or symptoms. Calves soft. IMPRESSION 1.Postoperative day 1 left total hip replacement. 2.Urinary retention. PLAN We will send him home with a leg bag catheter. He is already on Flomax. He already has a urologist.We will leave the catheter in for 2 weeks. I will see him in 2 weeks. We will have him follow up with his urologist, Dr. Colindres and I will see him in 2 weeks for staple removal. He will do home therapyon home nursing. D 09/11/2019 14:14 [id number] 09/11/2019 14:26 MCB/MODL * Tiffanie Kam, [employer]PART[employer] SUPERVISOR - 09/11/2019 11:49 AM EST Physical Therapy PHYSICAL THERAPY TREATMENT NOTE Skilled Therapy Needs After Discharge Anticipate Resolution of Current Assessment Limitations Including: Pain Are Skilled Therapy Services Needed After Discharge: Yes Intensity of Skilled Therapy: 2-3 days per week Anticipated Duration of Skilled Therapy: Duration 10 - 30 days DME Recommendation: Wheeled walker DME Rationale: Patient's condition creates an increased risk of safety hazard without recommended equipment Rehab Potential: Good Outcomes Measures Prior Function - Basic Mobility % Impaired: AM-PAC - Basic Mobility Raw Score: 18 Points AM-PAC - Basic Mobility % Impaired: 43.83% functionally impaired Activity Tolerance Therapy Precautions Weight Bearing Status: WFL General Rehab Precautions: Fall risk Released to nursing: assist x 1 with ww Balance Bed Mobility Supine to Sit: Stand by assistance Sit to Supine: Stand by assistance Skilled Intervention: Pt educated on process to improve ind with transfers onto and off of plinth and completed with use of neville UE. Transfers Sit to Stand: Stand by assistance Skilled Intervention: Pt educated on hand placement to improve function and safety with sit to stand and stand to sit transfers. Gait/Locomotion Gait Assistance: Stand by assistance Assistive Device: Wheeled walker Distance: 120 Feet Pattern: L Decreased stance time, L impaired heel strike, R decreased step length, L decreased steplength, Antalgic Curbs/Ramps: Contact guard Stair Management Technique: One rail R, Step to pattern, Forwards, With cane Stair Management Assistance: Contact guard Number of Stairs: 4 Skilled Intervention: Pt demonstrates flexed posture with step to step through gait pattern. Pt educated on improved UE support to off weight Lt LE. Pt instructed on and performed stair navigaiton using [address] cane with cga. Pt performed wiht step to gait pattern. Pt performed curb step withstep to gait pattern and cga with use of ww. Exercise Total Hip: 20 Pt completed Lt LE therapeutic exercise x 20 reps for functional strengthening: SAQ, LAQ, quad sets, and ankle pumps. Pt requiring cueing to perform exercises correctly. Home Living Type of Home: House Home Layout: Two level, Able to live on main level with bedroom/bathroom, Stairs to enter with rails Bathroom Shower/Tub: Walk-in shower Bathroom Toilet: Raised Bathroom Equipment: Grab bars in shower, Built-in shower seat, Shower chair, Hand-held shower(Grab bar on R of toilet) Bathroom Accessibility: Accessible via walker Home Equipment: Wheeled Walker, Cane, Mathematical Engineer Additional Comments: Been using walker for past few nights to practice before sx, otherwise indep with no AD Prior Level of Function Level of [place]: Independent with ADLs and functional transfers Lives With: Spouse Receives Help From: Family ADL Assistance: Independent Comments: Spouse performs the homemaking and they hire out yard work. Ambulates without a device. For complete objective data, detailed plan of care and patient education refer to: PT EVALUATION flow sheet, PT TREATMENT flow sheet, patient Plan of Care, Plan of Care progress note, and Patient Education. This note stands as the current Discharge Summary upon patient discharge from the hospital or completion of Physical Therapy Plan of Care. documented in this encounter* Santiago Bates MD - 07/13/2020 9:35 AM EDT Dictation on: 07/13/2020 9:36 AM by: SANTIAGO BATES [[id number]] documented in this encounter* Vijay Viveros MD - 09/24/2019 5:23 PM EST Fawn Cameron comes in today 2 weeks status post left total hip replacement. He is doing prettywell. He is with his walker, he is with his today. The urologist did remove his bladder catheter. He is back on his Flomax. Overall, he is doing well. Today he is awake alert x3. Ambulates with his walker, he is with his . Wound is clean, dry, intact. No erythema, no drainage, no lymphangitis, no cellulitis. Trace edema. No DVT signs or symptoms. Calves soft. Leg lengths were equal. No x-rays were obtained. IMPRESSION Two weeks status post left total hip replacement. PLAN At this point in time, we will go ahead and have him do activities on a rehab protocol at home. Continue his aspirin protocol, local wound care, and I will see him in a month for x-rays. documented in this encounter* Gema Phillips LPN - 09/15/2019 2:49 PM EST Spoke w Fawn today and he tells me the hip is doing pretty good. His swelling is better w elevation and ice. Therapy tells him he is doing well. He is taking his ASA bid and his Protonix qd. He also tells me that he has been having left shoulder pain that started after his surgery. He is able push himself up from the chair and able to use his walker. It does hurt if he reaches out in front. We did discuss using ice, use some gentle ROM and his Tramadol or Tylenol. Dr Viveros is aware of the shoulder issues and will discuss this w him at his post-op appointment. 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 Advance Directives and Livin g Will 09/10/2019 8:11 AM Power of Title Attorney Latest Code Status on File Code Status Date Activated Date Inactivated Comments Full Code 09/10/2019 12:24 PM Documents on File Type Date Recorded 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 Advance Directives and Livin g Will 09/10/2019 8:11 AM Power of Title Attorney Documents on File Type Date Recorded 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 Advance Directives and Livin g Will 12/10/2019 9:11 AM Power of Title Attorney Documents on File Type Date Recorded 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 Advance Directives and Livin g Will 12/10/2019 9:11 AM Power of Title Attorney Documents on File Type Date Recorded 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 Advance Directives and Livin g Will 03/08/2020 12:00 AM Power of Title Attorney Documents on File Type Date Recorded 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 Advance Directives and Livin g Will 03/08/2020 12:00 AM Power of Title Attorney Documents on File Type Date Recorded 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 Advance Directives and Livin g Will 09/10/2019 8:11 AM Documents on File Type Date Recorded 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 Advance Directives and Livin g Will 08/19/2019 7:32 AM Documents on File Type Date Recorded 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 Power of Title Attorney Advance Directives and Livin g Will 03/08/2020 12:00 AM Documents on File Type Date Recorded 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 Power of Title Attorney Advance Directives and Livin g Will 03/08/2020 12:00 AM Latest Code Status on File Date Activated Date Inactivated Comments 09/10/2019 12:24 PM Latest Code Status on File Code Status Date Activated Date Inactivated Comments Full Code 09/10/2019 12:24 PM Documents on File Type Date Recorded 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 Living Will 04/20/2016 Documents on File Type Date Recorded 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 Decision Maker: Patient Instructions Name Dates Details Instructions not documented Name Dates Details Instructions not documented Name Dates Details Instructions not documented Name Dates Details Instructions not documented Name Dates Details Instructions not documented Name Dates Details Instructions not documented Name Dates Details Instructions not documented Name Dates Details Instructions not documented Name Dates Details Instructions not documented Name Dates Details Instructions not documented Name Dates Details Instructions not documented Name Dates Details Instructions not documented Name Dates Details Instructions not documented Name Dates Details Instructions not documented Name Dates Details Instructions not documented Name Dates Details Instructions not documented Name Dates Details Instructions not documented Name Dates Details Instructions not documented Name Dates Details Instructions not documented Name Dates Details Instructions not documented Name Dates Details Instructions not documented Name Dates Details Instructions not documented Name Dates Details Instructions not documented Name Dates Details Instructions not documented Name Dates Details Instructions not documented Name Dates Details Instructions not documented Name Dates Details Instructions not documented Name Dates Details Instructions not documented Name Dates Details Instructions not documented Summary Purpose Family History Mother Name Dates Details Family history of heart murm ur(V17.49, Z82.49) Status:Active Family history of hyperlipid emia(V18.19, Z83.438) Status:Active Father Name Dates Details Family history of cardiac di sorder(V17.49, Z82.49) Status:Active Family history of pneumonia( V18.8, Z83.1) Status:Active Mother Name Dates Details Family history of heart murm ur(V17.49, Z82.49) Status:Active Family history of hyperlipid emia(V18.19, Z83.438) Status:Active Father Name Dates Details Family history of cardiac di sorder(V17.49, Z82.49) Status:Active Family history of pneumonia( V18.8, Z83.1) Status:Active Mother Name Dates Details Family history of heart murm ur(V17.49, Z82.49) Status:Active Family history of hyperlipid emia(V18.19, Z83.438) Status:Active Father Name Dates Details Family history of cardiac di sorder(V17.49, Z82.49) Status:Active Family history of pneumonia( V18.8, Z83.1) Status:Active Mother Name Dates Details Family history of heart murm ur(V17.49, Z82.49) Status:Active Family history of hyperlipid emia(V18.19, Z83.438) Status:Active Father Name Dates Details Family history of cardiac di sorder(V17.49, Z82.49) Status:Active Family history of pneumonia( V18.8, Z83.1) Status:Active Mother Name Dates Details Family history of heart murm ur(V17.49, Z82.49) Status:Active Family history of hyperlipid emia(V18.19, Z83.438) Status:Active Father Name Dates Details Family history of cardiac di sorder(V17.49, Z82.49) Status:Active Family history of pneumonia( V18.8, Z83.1) Status:Active Mother Name Dates Details Family history of heart murm ur(V17.49, Z82.49) Status:Active Family history of hyperlipid emia(V18.19, Z83.438) Status:Active Father Name Dates Details Family history of cardiac di sorder(V17.49, Z82.49) Status:Active Family history of pneumonia( V18.8, Z83.1) Status:Active Mother Name Dates Details Family history of heart murm ur(V17.49, Z82.49) Status:Active Family history of hyperlipid emia(V18.19, Z83.438) Status:Active Father Name Dates Details Family history of cardiac di sorder(V17.49, Z82.49) Status:Active Family history of pneumonia( V18.8, Z83.1) Status:Active Mother Name Dates Details Family history of heart murm ur(V17.49, Z82.49) Status:Active Family history of hyperlipid emia(V18.19, Z83.438) Status:Active Father Name Dates Details Family history of cardiac di sorder(V17.49, Z82.49) Status:Active Family history of pneumonia( V18.8, Z83.1) Status:Active Mother Name Dates Details Family history of heart murm ur(V17.49, Z82.49) Status:Active Family history of hyperlipid emia(V18.19, Z83.438) Status:Active Father Name Dates Details Family history of cardiac di sorder(V17.49, Z82.49) Status:Active Family history of pneumonia( V18.8, Z83.1) Status:Active Mother Name Dates Details Family history of heart murm ur(V17.49, Z82.49) Status:Active Family history of hyperlipid emia(V18.19, Z83.438) Status:Active Father Name Dates Details Family history of cardiac di sorder(V17.49, Z82.49) Status:Active Family history of pneumonia( V18.8, Z83.1) Status:Active Mother Name Dates Details Family history of heart murm ur(V17.49, Z82.49) Status:Active Family history of hyperlipid emia(V18.19, Z83.438) Status:Active Father Name Dates Details Family history of cardiac di sorder(V17.49, Z82.49) Status:Active Family history of pneumonia( V18.8, Z83.1) Status:Active Mother Name Dates Details Family history of heart murm ur(V17.49, Z82.49) Status:Active Family history of hyperlipid emia(V18.19, Z83.438) Status:Active Father Name Dates Details Family history of cardiac di sorder(V17.49, Z82.49) Status:Active Family history of pneumonia( V18.8, Z83.1) Status:Active Mother Name Dates Details Family history of heart murm ur(V17.49, Z82.49) Status:Active Family history of hyperlipid emia(V18.19, Z83.438) Status:Active Father Name Dates Details Family history of cardiac di sorder(V17.49, Z82.49) Status:Active Family history of pneumonia( V18.8, Z83.1) Status:Active Mother Name Dates Details Family history of heart murm ur(V17.49, Z82.49) Status:Active Family history of hyperlipid emia(V18.19, Z83.438) Status:Active Father Name Dates Details Family history of cardiac di sorder(V17.49, Z82.49) Status:Active Family history of pneumonia( V18.8, Z83.1) Status:Active Mother Name Dates Details Family history of heart murm ur(V17.49, Z82.49) Status:Active Family history of hyperlipid emia(V18.19, Z83.438) Status:Active Father Name Dates Details Family history of cardiac di sorder(V17.49, Z82.49) Status:Active Family history of pneumonia( V18.8, Z83.1) Status:Active Mother Name Dates Details Family history of heart murm ur(V17.49, Z82.49) Status:Active Family history of hyperlipid emia(V18.19, Z83.438) Status:Active Father Name Dates Details Family history of cardiac di sorder(V17.49, Z82.49) Status:Active Family history of pneumonia( V18.8, Z83.1) Status:Active Mother Name Dates Details Family history of heart murm ur(V17.49, Z82.49) Status:Active Family history of hyperlipid emia(V18.19, Z83.438) Status:Active Father Name Dates Details Family history of cardiac di sorder(V17.49, Z82.49) Status:Active Family history of pneumonia( V18.8, Z83.1) Status:Active Mother Name Dates Details Family history of heart murm ur(V17.49, Z82.49) Status:Active Family history of hyperlipid emia(V18.19, Z83.438) Status:Active Father Name Dates Details Family history of cardiac di sorder(V17.49, Z82.49) Status:Active Family history of pneumonia( V18.8, Z83.1) Status:Active Mother Name Dates Details Family history of heart murm ur(V17.49, Z82.49) Status:Active Family history of hyperlipid emia(V18.19, Z83.438) Status:Active Father Name Dates Details Family history of cardiac di sorder(V17.49, Z82.49) Status:Active Family history of pneumonia( V18.8, Z83.1) Status:Active Mother Name Dates Details Family history of heart murm ur(V17.49, Z82.49) Status:Active Family history of hyperlipid emia(V18.19, Z83.438) Status:Active Father Name Dates Details Family history of cardiac di sorder(V17.49, Z82.49) Status:Active Family history of pneumonia( V18.8, Z83.1) Status:Active Mother Name Dates Details Family history of heart murm ur(V17.49, Z82.49) Status:Active Family history of hyperlipid emia(V18.19, Z83.438) Status:Active Father Name Dates Details Family history of cardiac di sorder(V17.49, Z82.49) Status:Active Family history of pneumonia( V18.8, Z83.1) Status:Active Mother Name Dates Details Family history of heart murm ur(V17.49, Z82.49) Status:Active Family history of hyperlipid emia(V18.19, Z83.438) Status:Active Father Name Dates Details Family history of cardiac di sorder(V17.49, Z82.49) Status:Active Family history of pneumonia( V18.8, Z83.1) Status:Active Mother Name Dates Details Family history of heart murm ur(V17.49, Z82.49) Status:Active Family history of hyperlipid emia(V18.19, Z83.438) Status:Active Father Name Dates Details Family history of cardiac di sorder(V17.49, Z82.49) Status:Active Family history of pneumonia( V18.8, Z83.1) Status:Active Mother Name Dates Details Family history of heart murm ur(V17.49, Z82.49) Status:Active Family history of hyperlipid emia(V18.19, Z83.438) Status:Active Father Name Dates Details Family history of cardiac di sorder(V17.49, Z82.49) Status:Active Family history of pneumonia( V18.8, Z83.1) Status:Active Mother Name Dates Details Family history of heart murm ur(V17.49, Z82.49) Status:Active Family history of hyperlipid emia(V18.19, Z83.438) Status:Active Father Name Dates Details Family history of cardiac di sorder(V17.49, Z82.49) Status:Active Family history of pneumonia( V18.8, Z83.1) Status:Active Mother Name Dates Details Family history of heart murm ur(V17.49, Z82.49) Status:Active Family history of hyperlipid emia(V18.19, Z83.438) Status:Active Father Name Dates Details Family history of cardiac di sorder(V17.49, Z82.49) Status:Active Family history of pneumonia( V18.8, Z83.1) Status:Active Mother Name Dates Details Family history of heart murm ur(V17.49, Z82.49) Status:Active Family history of hyperlipid emia(V18.19, Z83.438) Status:Active Father Name Dates Details Family history of cardiac di sorder(V17.49, Z82.49) Status:Active Family history of pneumonia( V18.8, Z83.1) Status:Active Mother Name Dates Details Family history of heart murm ur(V17.49, Z82.49) Status:Active Family history of hyperlipid emia(V18.19, Z83.438) Status:Active Father Name Dates Details Family history of cardiac di sorder(V17.49, Z82.49) Status:Active Family history of pneumonia( V18.8, Z83.1) Status:Active Mother Name Dates Details Family history of heart murm ur(V17.49, Z82.49) Status:Active Family history of hyperlipid emia(V18.19, Z83.438) Status:Active Father Name Dates Details Family history of cardiac di sorder(V17.49, Z82.49) Status:Active Family history of pneumonia( V18.8, Z83.1) Status:Active Mother Name Dates Details Family history of heart murm ur(V17.49, Z82.49) Status:Active Family history of hyperlipid emia(V18.19, Z83.438) Status:Active Father Name Dates Details Family history of cardiac di sorder(V17.49, Z82.49) Status:Active Family history of pneumonia( V19.8, Z83.6) Status:Active Unknown Family Member Name Dates Details Family history of heart murm ur: Mother(V17.49, Z82.49) Status:Active Family history of hyperlipid emia: Mother(V18.19, Z83.438) Status:Active Family history of cardiac di sorder: Father(V17.49, Z82.49) Status:Active Family history of pneumonia: Father(V19.8, Z83.6) Status:Active Unknown Family Member Name Dates Details Family history of heart murm ur: Mother(V17.49, Z82.49) Status:Active Family history of hyperlipid emia: Mother(V18.19, Z83.438) Status:Active Family history of cardiac di sorder: Father(V17.49, Z82.49) Status:Active Family history of pneumonia: Father(V19.8, Z83.6) Status:Active Unknown Family Member Name Dates Details Family history of heart murm ur: Mother(V17.49, Z82.49) Status:Active Family history of hyperlipid emia: Mother(V18.19, Z83.438) Status:Active Family history of cardiac di sorder: Father(V17.49, Z82.49) Status:Active Family history of pneumonia: Father(V19.8, Z83.6) Status:Active Unknown Family Member Name Dates Details Family history of heart murm ur: Mother(V17.49, Z82.49) Status:Active Family history of hyperlipid emia: Mother(V18.19, Z83.438) Status:Active Family history of cardiac di sorder: Father(V17.49, Z82.49) Status:Active Family history of pneumonia: Father(V19.8, Z83.6) Status:Active Unknown Family Member Name Dates Details Family history of heart murm ur: Mother(V17.49, Z82.49) Status:Active Family history of hyperlipid emia: Mother(V18.19, Z83.438) Status:Active Family history of cardiac di sorder: Father(V17.49, Z82.49) Status:Active Family history of pneumonia: Father(V19.8, Z83.6) Status:Active Unknown Family Member Name Dates Details Family history of pneumonia: Father(V19.8, Z83.6) Status:Active Family history of cardiac di sorder: Father(V17.49, Z82.49) Status:Active Family history of hyperlipid emia: Mother(V18.19, Z83.438) Status:Active Family history of heart murm ur: Mother(V17.49, Z82.49) Status:Active Unknown Family Member Name Dates Details Family history of heart murm ur: Mother(V17.49, Z82.49) Status:Active Family history of hyperlipid emia: Mother(V18.19, Z83.438) Status:Active Family history of cardiac di sorder: Father(V17.49, Z82.49) Status:Active Family history of pneumonia: Father(V19.8, Z83.6) Status:Active Unknown Family Member Name Dates Details Family history of heart murm ur: Mother(V17.49, Z82.49) Status:Active Family history of hyperlipid emia: Mother(V18.19, Z83.438) Status:Active Family history of cardiac di sorder: Father(V17.49, Z82.49) Status:Active Family history of pneumonia: Father(V19.8, Z83.6) Status:Active Unknown Family Member Name Dates Details Family history of heart murm ur: Mother(V17.49, Z82.49) Status:Active Family history of hyperlipid emia: Mother(V18.19, Z83.438) Status:Active Family history of cardiac di sorder: Father(V17.49, Z82.49) Status:Active Family history of pneumonia: Father(V19.8, Z83.6) Status:Active Unknown Family Member Name Dates Details Family history of heart murm ur: Mother(V17.49, Z82.49) Status:Active Family history of hyperlipid emia: Mother(V18.19, Z83.438) Status:Active Family history of cardiac di sorder: Father(V17.49, Z82.49) Status:Active Family history of pneumonia: Father(V19.8, Z83.6) Status:Active Unknown Family Member Name Dates Details Family history of heart murm ur: Mother(V17.49, Z82.49) Status:Active Family history of hyperlipid emia: Mother(V18.19, Z83.438) Status:Active Family history of cardiac di sorder: Father(V17.49, Z82.49) Status:Active Family history of pneumonia: Father(V19.8, Z83.6) Status:Active Unknown Family Member Name Dates Details Family history of heart murm ur: Mother(V17.49, Z82.49) Status:Active Family history of hyperlipid emia: Mother(V18.19, Z83.438) Status:Active Family history of cardiac di sorder: Father(V17.49, Z82.49) Status:Active Family history of pneumonia: Father(V19.8, Z83.6) Status:Active Unknown Family Member Name Dates Details Family history of heart murm ur: Mother(V17.49, Z82.49) Status:Active Family history of hyperlipid emia: Mother(V18.19, Z83.438) Status:Active Family history of cardiac di sorder: Father(V17.49, Z82.49) Status:Active Family history of pneumonia: Father(V19.8, Z83.6) Status:Active Unknown Family Member Name Dates Details Family history of heart murm ur: Mother(V17.49, Z82.49) Status:Active Family history of hyperlipid emia: Mother(V18.19, Z83.438) Status:Active Family history of cardiac di sorder: Father(V17.49, Z82.49) Status:Active Family history of pneumonia: Father(V19.8, Z83.6) Status:Active Unknown Family Member Name Dates Details Family history of heart murm ur: Mother(V17.49, Z82.49) Status:Active Family history of hyperlipid emia: Mother(V18.19, Z83.438) Status:Active Family history of cardiac di sorder: Father(V17.49, Z82.49) Status:Active Family history of pneumonia: Father(V19.8, Z83.6) Status:Active Unknown Family Member Name Dates Details Family history of heart murm ur: Mother(V17.49, Z82.49) Status:Active Family history of hyperlipid emia: Mother(V18.19, Z83.438) Status:Active Family history of cardiac di sorder: Father(V17.49, Z82.49) Status:Active Family history of pneumonia: Father(V19.8, Z83.6) Status:Active Unknown Family Member Name Dates Details Family history of heart murm ur: Mother(V17.49, Z82.49) Status:Active Family history of hyperlipid emia: Mother(V18.19, Z83.438) Status:Active Family history of cardiac di sorder: Father(V17.49, Z82.49) Status:Active Family history of pneumonia: Father(V19.8, Z83.6) Status:Active Unknown Family Member Name Dates Details Family history of heart murm ur: Mother(V17.49, Z82.49) Status:Active Family history of hyperlipid emia: Mother(V18.19, Z83.438) Status:Active Family history of cardiac di sorder: Father(V17.49, Z82.49) Status:Active Family history of pneumonia: Father(V19.8, Z83.6) Status:Active Unknown Family Member Name Dates Details Family history of heart murm ur: Mother(V17.49, Z82.49) Status:Active Family history of hyperlipid emia: Mother(V18.19, Z83.438) Status:Active Family history of cardiac di sorder: Father(V17.49, Z82.49) Status:Active Family history of pneumonia: Father(V19.8, Z83.6) Status:Active Unknown Family Member Name Dates Details Family history of heart murm ur: Mother(V17.49, Z82.49) Status:Active Family history of hyperlipid emia: Mother(V18.19, Z83.438) Status:Active Family history of cardiac di sorder: Father(V17.49, Z82.49) Status:Active Family history of pneumonia: Father(V19.8, Z83.6) Status:Active Unknown Family Member Name Dates Details Family history of heart murm ur: Mother(V17.49, Z82.49) Status:Active Family history of hyperlipid emia: Mother(V18.19, Z83.438) Status:Active Family history of cardiac di sorder: Father(V17.49, Z82.49) Status:Active Family history of pneumonia: Father(V19.8, Z83.6) Status:Active Unknown Family Member Name Dates Details Family history of heart murm ur: Mother(V17.49, Z82.49) Status:Active Family history of hyperlipid emia: Mother(V18.19, Z83.438) Status:Active Family history of cardiac di sorder: Father(V17.49, Z82.49) Status:Active Family history of pneumonia: Father(V19.8, Z83.6) Status:Active Unknown Family Member Name Dates Details Family history of heart murm ur: Mother(V17.49, Z82.49) Status:Active Family history of hyperlipid emia: Mother(V18.19, Z83.438) Status:Active Family history of cardiac di sorder: Father(V17.49, Z82.49) Status:Active Family history of pneumonia: Father(V19.8, Z83.6) Status:Active Unknown Family Member Name Dates Details Family history of heart murm ur: Mother(V17.49, Z82.49) Status:Active Family history of hyperlipid emia: Mother(V18.19, Z83.438) Status:Active Family history of cardiac di sorder: Father(V17.49, Z82.49) Status:Active Family history of pneumonia: Father(V19.8, Z83.6) Status:Active Unknown Family Member Name Dates Details Family history of heart murm ur: Mother(V17.49, Z82.49) Status:Active Family history of hyperlipid emia: Mother(V18.19, Z83.438) Status:Active Family history of cardiac di sorder: Father(V17.49, Z82.49) Status:Active Family history of pneumonia: Father(V19.8, Z83.6) Status:Active Unknown Family Member Name Dates Details Family history of heart murm ur: Mother(V17.49, Z82.49) Status:Active Family history of hyperlipid emia: Mother(V18.19, Z83.438) Status:Active Family history of cardiac di sorder: Father(V17.49, Z82.49) Status:Active Family history of pneumonia: Father(V19.8, Z83.6) Status:Active Reason for Referral Status Reason Specialty Diagnoses / Procedures Referred By Contact Referred To Contact Authorized Physical Therapy / Rehabilitation Diagnoses Arthritis of left hip Vijay Viveros MD [address] [place], [place] [id number] Status Reason Specialty Diagnoses / Procedures Referre d By Contact Referred To Contact Closed Radiology Diagnoses Nontraumatic complete tear of left rotator cuff Procedures MR Shoulder Left Without Contrast Vijay Viveros MD [address] [place] [id number] Status Reason Specialty Diagnoses / Procedures Referred By Contact Referred To Contact Authorized Home Health Services Diagnoses Status post total replacement of left hip Vijay Viveros MD [address] [place], [place] [id number] Status Reason Specialty Diagnoses / Procedures Referre d By Contact Referred To Contact Closed Radiology Diagnoses Arthritis of left hip Procedures CT Hip Left Without Contrast Vijay Viveros MD [address] [place] [address] Status Reason Specialty Diagnoses / Procedures Referred By Contact Referred To Contact Authorized Cardiology Diagnoses 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 Procedures ECG 12 Lead Heather Paredes MD [address] [facility] [address] [place] [address] Specialty Diagnoses / Procedures Referred By Contac t Referred To Contact Cardiology Diagnoses 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) Procedures Vascular US abdominal aorta anuerysm AAA screening Don Barrera MD [address] [place] [address] Referral ID Status Reason Start Date Expiration Date Visits Requested Visits Authorized [id number] Authorized Perform Procedure 05/04/2023 10/31/2023 1 1 Specialty Diagnoses / Procedures Referred By Contac t Referred To Contact Orthopaedic Surgery / Orthopedic Surgery Diagnoses Chronic right shoulder pain Procedures Joint Injection Large/Arthrocentesis: R subacromial bursa Don Barrera MD [address] [place] [address] Referral ID Status Reason Start Date Expiration Date V isits Requested Visits Authorized [id number] Authorized 05/31/2023 11/27/2023 1 1 Specialty Diagnoses / Procedures Referred By Contac t Referred To Contact Radiology Diagnoses 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 Hiatal hernia Procedures FL GI esophagram Daysi Arenas, DO [address] [facility], [facility] [address] [place] [address] Referral ID Status Reason Start Date Expiration Date Visits Requested Visits Authorized [id number] Pending Review Perform Procedure 11/01/2023 10/31/2024 1 1 Specialty Diagnoses / Procedures Referred By Contac t Referred To Contact Radiology Diagnoses Pain in right shoulder Procedures XR shoulder right 2+ views Mack Galeana MD [address] [place] [address] Referral ID Status Reason Start Date Expiration Date Visits Requested Visits Authorized [id number] Authorized Perform Procedure 03/27/2024 03/27/2025 1 1 Specialty Diagnoses / Procedures Referred By Contac t Referred To Contact Radiology Diagnoses Radiculopathy, lumbar region Procedures MR pelvis wo IV contrast Mack Galeana MD [address] [place] [address] Referral ID Status Reason Start Date Expiration Date Visits Requested Visits Authorized [id number] Authorized Perform Procedure 07/17/2024 07/17/2025 1 1 Specialty Diagnoses / Procedures Referred By Contac t Referred To Contact Radiology Diagnoses Radiculopathy, lumbar region Procedures MR lumbar spine wo IV contrast Mack Galeana MD [address] [place] [address] Referral ID Status Reason Start Date Expiration Date Visits Requested Visits Authorized [id number] Authorized Perform Procedure 07/17/2024 07/17/2025 1 1 Specialty Diagnoses / Procedures Referred By Contac t Referred To Contact Cardiology Diagnoses 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 Procedures Transthoracic Echo (TTE) Complete [place] ECHO TTHRC R-T 2D W/WOM-MODE COMPL SPEC&COLR D Otoniel Salcedo MD [address] [facility], [facility] [address] [place] [address] Referral ID Status Reason Start Date Expiration Date Visits Requested Visits Authorized [id number] Authorized Perform Procedure 07/03/2024 07/03/2025 1 1 Specialty Diagnoses / Procedures Referred By Contac t Referred To Contact Radiology Diagnoses Left hip pain Procedures XR hip left with pelvis when performed 2 or 3 views Don Barrera MD [address] [place], [place] [id number] Referral ID Status Reason Start Date Expiration Date Visits Requested Visits Authorized [id number] Authorized Perform Procedure 06/12/2024 06/12/2025 1 1 Discharge Instructions * Attachments The following attachments cannot be sent through Care Everywhere. * Hip Replacement: Total: General Info (Greek) * Indwelling Urinary Catheter Care: General Info (Greek) documented in this encounter Chief Complaint 6 MO ABD ANEURYSM HL HTN CK REV LABSyealry w/PSA* NPV her for reports having pain in his Lt thigh in front more laterally rates /10 now and 05/31 at its worst does not always matter what activity he is doing. Pain started 1 year ago, pain would comeand go it was becoming more frequent he occasionally walks with a cane because when the pain is really bad he feels like his Lt leg would give out. He had PT 3 months ago helped some but did not last, prednisone currently taking and has helped a lot * This is 86-year-old male here for a new patient appointment for chief complaint of low back and left leg pain. He reports that he has had the symptoms for about a year. He initially thought it was due to his left hip so he had a follow-up appoint with Dr. Viveros. Dr. Viveros reviewed the x-ray and informed him that his prosthesis looked good but that he had a lot of arthritis in the spine. He went through physical therapy earlier this year which helped for a brief time. He will use Tylenol which helps moderately. He was recently put on steroids and is finishing up the regimen today. He reports that the steroids helped a lot. He states that he would have episodes where his left leg would feel very weak and that it was going to give out on him when he was walking but he did not fall. He denies loss of bladder or bowel control. He denies additional neurologic symptoms or issues. * The patient's past medical, social, and family history along with medications and allergies are available and were reviewed. 6 MO ABD ANEURYSM HL HTN CK REV LABS* FUV for L thigh pain; 10/31 today. MRI done at Sep 2021. Patient is walking with a cane. * This is an 86-year-old male here for a follow-up appointment for chief complaint of left thigh pain. He reports that since his last visit the pain will come on intermittently. It is mostly associatedwith activity. It does not occur when he is still. He states that currently the symptoms are manageable. Most of the time Tylenol will help. He denies any right-sided symptoms. He reports the pain does not reach the knee. He denies new neurologic symptoms or issues with bladder or bowel control. Hegot the MRI that we had ordered and is here to go over the results. * The patient's past medical, social, and family history along with medications and allergies are available and were reviewed. LT EAR NON HEALING LESION6 MO F/U REV LABSpt here to [facility] care. pt was an [facility] pt. no complaints6 MO F/U REV LABS6 MO F/U. Rev Labs.CAD Medications Administered Section Active Administered Medications - up to 3 most recent administrations Medication Order MAR Action Action Date Dose Rate Site fluorescein-benoxinate 0.25-0.4 % 1 Drop (FLURESS) 1 Drop, BOTH EYES, DIRECTED, Starting on Sun02/21/23 at 09, Until Sun02/21/23 at 2058, Administer for applanation tonometry. In the event of a Fluress shortage, administer [place]-Fluor 1 drop into both eyes as directed for applanation tonometry Given 02/21/2023 9:00 AM EDT 1 Drop proparacaine 0.5 % 1 Drop (ALCAINE) 1 Drop, BOTH EYES, DIRECTED, Starting on Sun02/21/23 at 0900, Until Sun02/21/23 at 2058, Administer for pneumo tonometry, tonopen tonometry, or pachymetry. In the event of a proparacaine shortage, administer tetracaine 0.5% ophthalmic drops 1 drop in the left eye as directed for pneumo tonometry, tonopen tonometry, or pachymetry Given 02/21/2023 9:00 AM EDT 1 Drop tropicamide 1 % 1 Drop (MYDRIACYL) 1 Drop, BOTH EYES, DIRECTED, Starting on Sun02/21/23 at 0900, Until Sun02/21/23 at 2058, Administer for dilation Given 02/21/2023 9:00 AM EDT 1 Drop Inactive Administered Medications - up to 3 most recent administrations Medication Order MAR Action Action Date Dose Rate Site fluorescein-benoxinate 0.3-0.4 % 1 Drop (FLURESS) 1 Drop, BOTH EYES, DIRECTED, Starting on Sun08/29/23 at 1000, Until Sun08/29/23 at 2158, Administer for applanation tonometry. In the event of a Fluress shortage, administer [employer] [place]-Fluor 1 drop into both eyes as directed for applanation tonometry Given 08/29/2023 10:00 AM EST 1 Drop PHENYLephrine 2.5 % 1 Drop (AK-DILATE, JEFFREY-SYNEPHRINE) 1 Drop, BOTH EYES, DIRECTED, Starting on Sun08/29/23 at 1000, Until Sun08/29/23 at 2158, Administer for dilation PROTECT FROM LIGHT Given 08/29/2023 10:00 AM EST 1 Drop proparacaine 0.5 % 1 Drop (ALCAINE) 1 Drop, BOTH EYES, DIRECTED, Starting on Sun08/29/23 at 1000, Until Sun08/29/23 at 2158, Administer for pneumo tonometry, tonopen tonometry, or pachymetry. In the event of a proparacaine shortage, administer tetracaine 0.5% ophthalmic drops 1 drop in the left eye as directed for pneumo tonometry, tonopen tonometry, or pachymetry Given 08/29/2023 10:00 AM EST 1 Drop tropicamide 1 % 1 Drop (MYDRIACYL) 1 Drop, BOTH EYES, DIRECTED, Starting on Sun08/29/23 at 1000, Until Sun08/29/23 at 2158, Administer for dilation Given 08/29/2023 10:00 AM EST 1 Drop Additional Source Comments Assessment & Plan Note - Heather Paredes MD - 04/22/2018 12:15 PM EDTAssessment & Plan Note - Heather Paredes MD - 05/19/2019 10:39 AM EDT Miscellaneous Notes (unrecog nized section and content) Associated Problem(s): 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 Treatment and care continues. PREOPERATIVE DIAGNOSIS Left hip degenerative arthrosis. POSTOPERATIVE DIAGNOSIS Left hip degenerative arthrosis. PROCEDURE IN DETAIL Minimally invasive robotic assisted left total hip replacement. ANESTHESIA Spinal anesthetic. COMPLICATIONS No intraoperative complications. SPECIMENS Bone. ESTIMATED BLOOD LOSS 100 cc. HISTORY Fawn is an 84-year-old patient with severe left hip degenerative arthrosis, unresponsive to conservative measures. For further details, see admission history and physical examination. He was explained all the risks, complications of surgery including but not limited to: the risk of infection, bleeding, neurologic or vascular injury, possibility of deep venous thrombosis, pulmonary embolism, myocardial infarction, stroke, or even with surgery. Explained the possibilities of continued pain, stiffness, loss of range of motion, as well as the need for future surgery. Given all the options of anesthetic, per the anesthesia team and elected for a spinal anesthetic. PROCEDURE Patient in the preoperative holding where the left hip was confirmed to be the appropriate site and marked by myself. Patient was taken to the operative suite, given preoperative Kefzol per protocol, as well as gentamicin, as well as a spinal anesthetic. He is placed in the right lateral decubitus position. Left hip was then sterilely prepped and draped using ChloraPrep solution. After sterilization of the left hip, we did our final time-out to confirm the left hip. After the left hip was in fact confirmed to be the appropriate site that had been marked by myself. At this time, we then went ahead and proceeded forward with making an incision after the iliac crest array was synchronized. After the iliac crest array was synchronized with the robot, we then went to the femur, did 10 cm incision over the greater trochanter coursing posteriorly. Iliotibial band and gluteal fascia were then split in line with the skin incision. We then placed our proximal femoral checkpoint and synchronized the femur with the robot. After this, we then went ahead and did a posterior approach to the femur, removing the piriformis short external rotators. Femoral head was dislocated. Osteotomy cut was made. Deep retractors were placed. Acetabulum was cleansed of all redundant tissue. After this, we did robotic-assisted mapping of the acetabulum. After the robotic-assisted mapping of the acetabulum, we then did robotic-assisted reaming to a size 54. Once the acetabular shell was selected, we went ahead and injected our first series of local around the acetabulum. We did irrigation around the acetabulum, and using robotic assistance, placed our size 54 Trident PSL acetabular shell in 40 degrees of abduction and 25 degrees of anteversion. Once the shell was in place, there was excellent fit and fill. No screws were added. After this, we placed our ultra-high molecular weight polyethylene to accept a 36 mm head. We then went to the femoral side, did sequential broaching and settled on an Accolade TMZF stem, 127 degree angle #6. We then did sequential reductions, settled on -5 head which gave us equal leg lengths. After the head was selected, we did more irrigation. Placed our final head on the trunnion. Hip was reduced. Leg lengths were equal there was excellent stability. We then went ahead and proceeded forward with x-rays to confirm good position of all implants with no fracture. After the final x-ray, we went ahead and did final antibiotic irrigation to the left hip. Sprinkled 1 g of vancomycin powder throughout the left hip, closed the piriformis short external rotators using Vicryl #2. #2 Vicryl was used to reapproximate iliotibial band and gluteal fascia. Final series of local was injected subcutaneously. #2 Vicryl was used to reapproximate deep subcutaneous tissue. 2- 0 Vicryl skin noni used on skin. Exophytic was placed on the wound as well as a sterile Mepilex dressing. Patient was then taken to PACU without intraoperative complication. D 09/10/2019 13:49 [id number] 09/10/2019 14:24 MCB/MODL Brief Post Operative Note Patient Name: Fawn Leigh Nisha : 1935 (84 y.o.) Date of Service: 09/10/2019 CSN: [id number] Procedure(s): Left Total Hip Replacement Robotic Pre-Operative Diagnoses: * left hip arthritis Post-Operative Diagnoses: * Arthritis of left hip [M16.12] Surgeon(s) and Role: * Vijay Viveros MD - Primary Anesthesiologist: Isidoro Valencia MD Anesthesiologist Material Reclaimer: EDUARD Craft Manager Therapy: Lincoln Burt RN; Madiha Cummins RN Bookkeeping Service Sales Agent: Ijeoma Ruvalcaba, TECHNOLOGIST Scrub Person: Lea Pantoja RN CIGARETTE STAMPER: Madina Martin RN Operative findings: djd Intra and immediate post-operative complications: none Type of anesthesia used: Spinal Estimated blood loss: 200 mL Estimated urine output: 0 mL Specimen(s): ID Type Source Tests Collected by Time Destination A : Bone Femoral Head, Left TISSUE EXAM Vijay Viveros MD 09/10/2019 1044 Implant(s): Implant Name Type Inv. Item Serial No. Law Firm Consultant Lot No. LRB No. Used Action CUP 54MM CLUSTER MILIAN TRIDENT PSL - [id number] CUP 54MM CLUSTER MILIAN TRIDENT PSL IZABEL OR [id number] Left 1 Implanted INSERT 36MM 10DEG F COMP X3 TRIDENT - [id number] INSERT 36MM 10DEG F COMP X3 TRIDENT IZABEL OR [id number] Left 1 Implanted STEM 127DEG SZ6 FEM ACCOLADE II - [id number] STEM 127DEG SZ6 FEM ACCOLADE II IZABEL OR [id number] Left 1 Implanted HEAD 36MM 5MM V40 FEM LFIT ANATOMIC - [id number] HEAD 36MM 5MM V40 FEM LFIT ANATOMIC IZABEL OR [id number] Left 1 Implanted Drain(s): * No LDAs found * Wound(s): Wound 09/10/19 Surgical Wound Hip Left (Active) Wound 09/10/19 Surgical Wound Hip Left (Active) Vijay Viveros MD 09/10/2019 12:18 PM documented in this encounter Reason for Visit (unrecogniz ed section and content) Reason Comments Weakness Status Reason Specialty Diagnoses / Procedures Referre d By Contact Referred To Contact Reason Comments Hip Pain Reason Comments Pain Reason Comments Coronary Artery Disease Reason Comments Follow-up Status Reason Specialty Diagnoses / Procedures Referre d By Contact Referred To Contact Reason Comments Follow-up Pain Status Reason Specialty Diagnoses / Procedures Referre d By Contact Referred To Contact Closed Radiology Diagnoses Nontraumatic complete tear of left rotator cuff Procedures MR Shoulder Left Without Contrast Vijay Viveros MD [address] [place] [address] Reason Comments Follow-up Status Reason Specialty Diagnoses / Procedures Referred By Contact Referred To Contact Closed Radiology Diagnoses 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 Procedures NM Myocardial Perfusion Study Single - Stress Only NM Myocardial Perfusion Multiple SPECT Heather Paredes MD [address] [place] [address] Reason Comments Follow-up Suture / Staple Removal Status Reason Specialty Diagnoses / Procedures Referre d By Contact Referred To Contact Diagnoses Arthritis of left hip Arthritis of left hip [M16.12] Procedures [place] TOTAL HIP ARTHROPLASTY Left total hip replacement [69019] Vijay Viveros MD [address] [place] [address] Status Reason Specialty Diagnoses / Procedures Referre d By Contact Referred To Contact Closed Radiology Diagnoses Arthritis of left hip Procedures CT Hip Left Without Contrast Vijay Viveros MD [address] [place] [address] Reason Comments Follow-up Suture / Staple Removal Wound Check Reason Comments Annual Exam Reason Comments Nail Care Reason Comments Medication Refill Reason Comments Nail Care Nail care Reason Comments Nail Care PATIENT IS HERE FOR NAIL CARE. DLS by Dr Barrera was about six weeks ago. Reason Comments Nail Care Patient is here for nail care. 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 Reason Comments Post-op Post op medial left great nail avulsion. Reason Comments GERD Dysphagia X 2 months Breads, s calloped potatoes, raw stock drier tender foods. Specialty Diagnoses / Procedures Referred By Foster bland Referred To Contact Gastroenterology Diagnoses 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 Don Barrera MD [address] [id number] Referral ID Status Reason Start Date Expiration Date Visits Requested Visits Authorized [id number] Authorized Specialty Services Required 09/28/2023 09/27/2024 1 1 Reason Comments 6 mo labs Specialty Diagnoses / Procedures Referred By Foster bland Referred To Contact Radiology Diagnoses 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 Hiatal hernia Procedures FL GI esophagram Daysi Arenas, DO [address] [facility], [place] [address] [id number] Referral ID Status Reason Start Date Expiration Date Visits Requested Visits Authorized [id number] Pending Review Perform Procedure 11/01/2023 10/31/2024 1 1 Reason Comments Weakness, Gen Pt comes in for gene ralized weakness. Pt reports a hx of TIAs. Pt states about an hour ago he began to have a generalized weak feeling, but denies any visual changes, nausea, headaches or loss of balance. Reason Comments Follow-up Had esophagram on . Patient reports dysphagia with specific foods. Reason Comments Fatigue Pt to ED with c/o fa tigue, hot flashes, feeling like he is floating since Sunday. Pt was seen here two days ago for same symptoms. While in triage he noted being dizzy. Reason Comments Dizziness Dizziness with H/A f or 2 days. Unsteady on his feet. Denies visual disturbances. HX of TIA. 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 Specialty Diagnoses / Procedures Referred By Contac t Referred To Contact Neurology Diagnoses Migraine with visual aura Dizziness Auras Don Barrera MD [address] [place] [address] Sage Kwon MD [address] [address] Referral ID Status Reason Start Date Expiration Date Visits Re quested Visits Authorized [id number] Closed 12/20/2023 12/19/2024 1 1 Reason Comments Epiretinal Membrane Follow Up Left Eye Macular Degeneration Follow Up Nonexudat derrell Both Eyes Specialty Diagnoses / Procedures Referred By Contac t Referred To Contact Radiology Diagnoses Pain in right shoulder Procedures XR shoulder right 2+ views Mack Galeana MD [address] [place], [place] [phone] Referral ID Status Reason Start Date Expiration Date Visits Requested Visits Authorized [id number] Authorized Perform Procedure 03/27/2024 03/27/2025 1 1 Reason Comments Nail Care Patient is here for nail care. DLS by Dr Barrera was 06/03/2024. Specialty Diagnoses / Procedures Referred By Contac t Referred To Contact Radiology Diagnoses Radiculopathy, lumbar region Procedures MR pelvis wo IV contrast Mack Galeana MD [address] [phone] Referral ID Status Reason Start Date Expiration Date Visits Requested Visits Authorized [id number] Authorized Perform Procedure 07/17/2024 07/17/2025 1 1 Specialty Diagnoses / Procedures Referred By Contac t Referred To Contact Radiology Diagnoses Radiculopathy, lumbar region Procedures MR lumbar spine wo IV contrast Mack Galeana MD [address] [place] [address] Referral ID Status Reason Start Date Expiration Date Visits Requested Visits Authorized [id number] Authorized Perform Procedure 07/17/2024 07/17/2025 1 1 Specialty Diagnoses / Procedures Referred By Contac t Referred To Contact Cardiology Diagnoses 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 Procedures Transthoracic Echo (TTE) Complete [place] ECHO TTHRC R-T 2D W/WOM-MODE COMPL SPEC&COLR D Otoniel Salcedo MD [address] [facility] [address] [place] [address] Referral ID Status Reason Start Date Expiration Date Visits Requested Visits Authorized [id number] Authorized Perform Procedure 07/03/2024 07/03/2025 1 1 Reason Comments Dizzy,shakey Specialty Diagnoses / Procedures Referred By Contac t Referred To Contact Radiology Diagnoses Left hip pain Procedures XR hip left with pelvis when performed 2 or 3 views Don Barrera MD [address] [place] [address] Referral ID Status Reason Start Date Expiration Date Visits Requested Visits Authorized [id number] Authorized Perform Procedure 06/12/2024 06/12/2025 1 1 Specialty Diagnoses / Procedures Referred By Contac t Referred To Contact Cardiology Diagnoses Abdominal aneurysm (CMS-HCC) Infrarenal abdominal aortic aneurysm (AAA) without rupture ([facility]-H[facility]) Procedures Vascular US aorta iliac duplex complete Vascular US aorta iliac duplex limited Don Barrera MD [address] [place] [address] Referral ID Status Reason Start Date Expiration Date Visits Requested Visits Authorized [id number] Pending Review Perform Procedure 06/12/2024 06/12/2025 1 1 Reason Comments Follow-up 1 year fu. Pt has no complaints Reason Comments 6 [place] LABS Specialty Diagnoses / Procedures Referred By Contac t Referred To Contact Primary Care Diagnoses Mixed hyperlipidemia Primary hypertension 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 Benign prostatic 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 lower urinary tract symptoms Osteoarthritis of spine with radiculopathy, lumbosacral region MARIANGEL (generalized anxiety disorder) Routine general medical examination at health care facility Anemia, unspecified type Procedures Follow Up In Primary Care - Established Don Barrera MD Phone: tel: fax: Referral ID Status Reason Start Date Expiration Date V isits Requested Visits Authorized [id number] Authorized 05/19/2024 05/19/2025 1 1 Reason Comments Nail Care nail care/DLS 5-primary care Reason Comments Chest Pain Left rib pain X 3 da ys after chiropractic visit Reason Comments Pain in NECK/Head x1MO Reason Comments Fall Pt found laying outs [facility] doors laying on cement. Pt does not recall what happened. Ccollar applied and pt placed on stretcher Reason Comments Fall Specialty Diagnoses / Procedures Referred By Contac t Referred To Contact Diagnoses Fall, initial encounter Intracranial hemorrhage (Multi) Multi Trauma Procedures n/a Kristy Giraldo, [address] [place] [address] Phone: tel: fax: [facility] [address] [place] [address] Phone: tel: fax: Referral ID Status Reason Start Date Expiration Date Visits Re quested Visits Authorized [id number] 1 1 (unrecognized sect ion and content) No Status Records FoundNo Status Records FoundNo Status Records FoundNo Status Records FoundNo Status Records FoundNo Status Records FoundNo Status Records FoundNo Status Records FoundNo Status Records FoundNo Status Records FoundNo Status Records FoundNo Status Records FoundNo Status Records Found INFORMATION SOURCE (unrecogn ized section and content) DATE CREATED AUTHOR 05/25/[address] [facility] DATE CREATED AUTHOR AUTHOR'S ORGANIZ ATION 09/26/2019 [facility] DATE CREATED AUTHOR AUTHOR'S ORGANIZ ATION 03/07/2020 [facility] DATE CREATED AUTHOR AUTHOR'S ORGANIZ ATION 05/13/2023 [facility] DATE CREATED AUTHOR AUTHOR'S ORGANIZ ATION 06/22/2023 [facility] DATE CREATED AUTHOR AUTHOR'S ORGANIZ ATION 03/12/2025 [facility] DATE CREATED AUTHOR AUTHOR'S ORGANIZ ATION 04/13/2025 [facility] DATE CREATED AUTHOR AUTHOR'S ORGANIZ ATION 05/04/2025 [facility] DATE CREATED AUTHOR AUTHOR'S ORGANIZ ATION 05/11/2025 [facility] DATE CREATED AUTHOR AUTHOR'S ORGANIZ ATION 05/12/2025 [facility] DATE CREATED AUTHOR AUTHOR'S ORGANIZ ATION 05/14/2025 [facility] DATE CREATED AUTHOR AUTHOR'S ORGANIZ ATION 05/19/2025 [facility] DATE CREATED AUTHOR AUTHOR'S ORGANIZ ATION 05/20/2025 [facility] Visit Details Home Health Visit - Care Blake n (unrecognized section and content) Visit Type -SACK DEPARTMENT SUPERVISOR Routine Visi t Discipline -Physical Therapy Problems Problem Start Date Status Goals Interventions AP02- Decreased Knowledge of Pain Management Disciplines: Physical Therapy 09/14/2019 Active 1 goal linked to scheduled/documented intervention 1 goal intervention scheduled/documented in this visit AP03- Decreased Knowledge of Edema Control Disciplines: Physical Therapy 09/14/2019 Active 1 goal linked to scheduled/documented intervention 1 goal intervention scheduled/documented in this visit Abnormal Findings Disciplines: Penitentiary, Physical Therapy, Occupational Therapy, Speech Therapy, Home Health Aide, Medical Social Work, Spiritual Care, Art Therapy, Massage Therapy, Registered Dietitian, Student - Medical Social Work 09/12/2019 Active 1 goal linked to scheduled/documented intervention 1 goal intervention scheduled/documented in this visit PT11- Decreased ROM Disciplines: Physical Therapy 09/14/2019 Active 1 goal linked to scheduled/documented intervention 1 goal intervention scheduled/documented in this visit PT14- Decreased Strength Disciplines: Physical Therapy 09/14/2019 Active 1 goal linked to scheduled/documented intervention 1 goal intervention scheduled/documented in this visit PT16- Decreased knowledge of Home Exercise Program Disciplines: Physical Therapy 09/14/2019 Active 1 goal linked to scheduled/documented intervention 1 goal intervention scheduled/documented in this visit PT18- Decreased Bed Mobility Disciplines: Physical Therapy 09/14/2019 Active 1 goal linked to scheduled/documented intervention 1 goal intervention scheduled/documented in this visit PT20- Decreased Ambulation Ability Disciplines: Physical Therapy 09/14/2019 Active 1 goal linked to scheduled/documented intervention 1 goal intervention scheduled/documented in this visit PT23- Decreased Home Exit/Entry Ability Disciplines: Physical Therapy 09/14/2019 Active 1 goal linked to scheduled/documented intervention 1 goal intervention scheduled/documented in this visit PT24- Decreased Balance/Increased Fall Risk Disciplines: Physical Therapy 09/14/2019 Active 1 goal linked to scheduled/documented intervention 1 goal intervention scheduled/documented in this visit Pain Management Disciplines: Penitentiary, Physical Therapy, Occupational Therapy, Speech Therapy, Home Health Aide, Medical Social Work, Spiritual Care, Art Therapy, Massage Therapy, Registered Dietitian, Student - Medical Social Work 09/12/2019 Active 1 goal linked to scheduled/documented intervention 1 goal intervention scheduled/documented in this visit Risk of Falls Disciplines: Penitentiary, Physical Therapy, Occupational Therapy, Speech Therapy, Home Health Aide, Medical Social Work, Spiritual Care, Art Therapy, Massage Therapy, Registered Dietitian, Student - Medical Social Work 09/12/2019 Active 1 goal linked to scheduled/documented intervention 1 goal intervention scheduled/documented in this visit Goals Goal Associated Problem Outcome Goal Met? Visit Notes Pain management education goal AP02- Decreased Knowledge of Pain Management Partially Met No Edema education goal AP03- Decreased Knowledge of Edema Control Met No Assessment findings goal Abnormal Findings No Range of motion goal PT11- Decreased ROM Met No Strength PT Ortho goal PT14- Decreased Strength Partially Met No HEP education goal PT16- Decreased knowledge of Home Exercise Program Met No Bed mobility PT Ortho goal PT18- Decreased Bed Mobility Met No Ambulation PT Ortho goal PT20- Decreased Ambulation Ability Partially Met No Home exit/entry PT Ortho goal PT23- Decreased Home Exit/Entry Ability Partially Met No Balance/Fall risk PT Ortho goal PT24- Decreased Balance/Increased Fall Risk No Pain management goal Pain Management No Balance/Fall risk goal Risk of Falls No Interventions Intervention Associated Problem/Goal Status Variance Visit Notes Assess/Instruct in pain management techniques and evaluate effectiveness. Problem:AP02- Decreased Knowledge of Pain Management Goal:Pain management education goal Scheduled Educated patient with proper supine positioning to educe pain within LLE and improve with sleeping ability. Educated patient with icing 3x a day for one hour to reduce pain and progress with comfort Assess/Instruct in edema management techniques Problem:AP03- Decreased Knowledge of Edema Control Goal:Edema education goal Scheduled patient is having no edema this date Report abnormal assessment to physician Problem:Abnormal Findings Goal:Assessment findings goal Scheduled Assess/Instruct in therapeutic exercises and perform manual techniques to improve functional ROM. Problem:PT11- Decreased ROM Goal:Range of motion goal Scheduled Patient performed ankle pumps, quad sets, short-arc quad, heel slides and long arc quad within LLE. Educated patient with importance of chiquita and slowing with ROM to improve with benefit of all exercise. Patient showed no increase in pain or fatigue with exercise and patient tolerating all cues well. Increasing with strength will lead patient to reaching LTGs and increasing with independence outside of home. PT muscle re-education Problem:PT14- Decreased Strength Goal:Strength PT Ortho goal Scheduled PT establish or upgrade home program Problem:PT16- Decreased knowledge of Home Exercise Program Goal:HEP education goal Scheduled Reviewed HEP with patient and educated patient with importance of completing daily to reach LTGs and return to prior level of safety in home. Assess/Instruct in safe bed mobility techniques Problem:PT18- Decreased Bed Mobility Goal:Bed mobility PT Ortho goal Scheduled patient is independent with bed mobility Assess/Instruct in safe gait techniques in home. Problem:PT20- Decreased Ambulation Ability Goal:Ambulation PT Ortho goal Scheduled Patient is ambulating in home with using FWW and MT at all times. Challenged patient with stepping over and around objects in home to improve with safety and stability in community with reducing assistance from family. Educated patient with importance of good posture and breathing pattern to improve with gait duration and efficiency. Patient was challenged with ambulating on variety of surfaces in home to improve with safety outside of home. Patient was able to ambulate for 2-3 minutes before needing a rest break due to fatigue and weakness within L hip. Patient needed educated with equal stride length and progressing with heel strike and toe off with gait to normalize gait pattern. Patient needed short and rest breaks when ambulating over 2-3 minutes Assess/Instruct in safe home exit/entry and community prepared mobility techniques Problem:PT23- Decreased Home Exit/Entry Ability Goal:Home exit/entry PT Ortho goal Scheduled Patient is performing stair mobility with using handrails for support with CGA at all times. Educated patient with which LE to lead with to improve with comfort and stability within L LE. Progressing with strength and mobility within L hip will lead patient to reciprocal gait pattern and require less assistance from family with all stair mobility. Educated patient with importance of posture and foot placement on steps to improve safety and reduce fall risk Assess/Instruct in balance and fall prevention techniques Problem:PT24- Decreased Balance/Increased Fall Risk Goal:Balance/Fall risk PT Ortho goal Scheduled Patient was challenged with a variety of dynamic and static balance exercises on a variety of even and uneven surfaces with using no support. Progressing with balance will reduce fall risk when in community and improve transfer safety with less assistance from spouse. Patient was challenged with reaching high and low for objects with showing large weight shifts and crossing midline Cued patient with importance of posture and progressing with anterior lean to improve with safety and reducing posterior sway. Patient showed fair- balance with using no AD and fair balance with using one hand for support Instruct on pain management techniques Problem:Pain Management Goal:Pain management goal Scheduled Instruct on fall prevention Problem:Risk of Falls Goal:Balance/Fall risk goal Scheduled Visit Details Visit Type -PT Initial Evalu ation Discipline -Physical Therapy Goals Goal Associated Problem Outcome Goal Met? Visit Notes Pain management education goal AP02- Decreased Knowledge of Pain Management No Edema education goal AP03- Decreased Knowledge of Edema Control No Assessment findings goal Abnormal Findings No Range of motion goal PT11- Decreased ROM No Strength PT Ortho goal PT14- Decreased Strength No HEP education goal PT16- Decreased knowledge of Home Exercise Program No Bed mobility PT Ortho goal PT18- Decreased Bed Mobility No Ambulation PT Ortho goal PT20- Decreased Ambulation Ability No Home exit/entry PT Ortho goal PT23- Decreased Home Exit/Entry Ability No Balance/Fall risk PT Ortho goal PT24- Decreased Balance/Increased Fall Risk No Pain management goal Pain Management No Balance/Fall risk goal Risk of Falls No Interventions Intervention Associated Problem/Goal Status Variance Visit Notes Assess/Instruct in pain management techniques and evaluate effectiveness. Problem:AP02- Decreased Knowledge of Pain Management Goal:Pain management education goal Completed SKILLED INTERVENTION: Recommended patient take pain medication as needed and as prescribed in addition to elevating LE and icing L hip at least 3x/day for 1 hour for pain modulation. Assess/Instruct in edema management techniques Problem:AP03- Decreased Knowledge of Edema Control Goal:Edema education goal Completed SKILLED INTERVENTION: Stressed importance of LE elevation throughout the day for swelling modulation with good patient understanding. Report abnormal assessment to physician Problem:Abnormal Findings Goal:Assessment findings goal Scheduled Assess/Instruct in therapeutic exercises and perform manual techniques to improve functional ROM. Problem:PT11- Decreased ROM Goal:Range of motion goal Completed SKILLED INTERVENTION: Therapist assessed L hip ROM this session to ensure adequate ranges for safe functional mobility in home environment. Decreased L hip flexion observed upon swing phase of gait. PT muscle re-education Problem:PT14- Decreased Strength Goal:Strength PT Ortho goal Completed SKILLED INTERVENTION: LE strength assessed via MMT grades this session, see eval for specifics. Ther ex completed to increase LE strength for improved transfers, gait and standing activity tolerance, see treatment log for specifics. PT establish or upgrade home program Problem:PT16- Decreased knowledge of Home Exercise Program Goal:HEP education goal Completed SKILLED INTERVENTION: Reviewed HEP located in joint camp booklet with good patient understanding of prescribed ther ex and recommended reps/ sets/ frequency. Recommended patient continue elevating LEs and icing L hip at least 3x/ day for swelling and pain modulation. Encouraged patient to ambulate short distances frequently throughout the day with use of AD to reduce joint/ muscular stiffness and to increase LE strength. Assess/Instruct in safe bed mobility techniques Problem:PT18- Decreased Bed Mobility Goal:Bed mobility PT Ortho goal Completed SKILLED INTERVENTION: Transfer training completed, see eval for specifics. Assess/Instruct in safe gait techniques in home. Problem:PT20- Decreased Ambulation Ability Goal:Ambulation PT Ortho goal Completed SKILLED INTERVENTION: Gait training completed, see eval for specifics. Assess/Instruct in safe home exit/entry and community prepared mobility techniques Problem:PT23- Decreased Home Exit/Entry Ability Goal:Home exit/entry PT Ortho goal Completed SKILLED INTERVENTION: Educational discussion on correct step to stair ambulation pattern post operatively for safety and greater ease with task. Assess/Instruct in balance and fall prevention techniques Problem:PT24- Decreased Balance/Increased Fall Risk Goal:Balance/Fall risk PT Ortho goal Completed SKILLED INTERVENTION: Instructed on fall prevention strategies this session. Skilled transfer and gait training completed including education on safety awareness and parameters to decrease fall risk. Recommended continued use of AD with all standing activity and ambulation for safety at this time. Instruct on pain management techniques Problem:Pain Management Goal:Pain management goal Scheduled Instruct on fall prevention Problem:Risk of Falls Goal:Balance/Fall risk goal Scheduled Visit Details Visit Type -SN HH Routine Vi sit Discipline -[facility] Problems Problem Start Date Status Goals Interventions Abnormal Findings Disciplines: Penitentiary, Physical Therapy, Occupational Therapy, Speech Therapy, Home Health Aide, Medical Social Work, Spiritual Care, Art Therapy, Massage Therapy, Registered Dietitian, Student - Medical Social Work 09/12/2019 Active 1 goal linked to scheduled/documented intervention 1 goal intervention scheduled/documented in this visit Bleeding Precautions Disciplines: Penitentiary 09/12/2019 Active - 1 problem intervention scheduled/documented in this visit Code Status Disciplines: Penitentiary, Physical Therapy, Occupational Therapy, Speech Therapy, Home Health Aide, Medical Social Work, Spiritual Care, Art Therapy, Massage Therapy, Registered Dietitian, Student - Medical Social Work 09/12/2019 Active 1 goal linked to scheduled/documented intervention 1 goal intervention scheduled/documented in this visit Home Medication Management Disciplines: Penitentiary 09/12/2019 Active 1 goal linked to scheduled/documented intervention 4 goal interventions scheduled/documented in this visit Infection Prevention - Catheter Disciplines: Penitentiary 09/12/2019 Active 1 goal linked to scheduled/documented intervention 1 goal intervention scheduled/documented in this visit Learning/Teaching Needs - Catheter Disciplines: Penitentiary 09/12/2019 Active 1 goal linked to scheduled/documented intervention 1 goal intervention scheduled/documented in this visit Learning/Teaching Needs - Joint Replacement Disciplines: Penitentiary 09/12/2019 Active 1 goal linked to scheduled/documented intervention 6 goal interventions scheduled/documented in this visit Pain Management Disciplines: Penitentiary, Physical Therapy, Occupational Therapy, Speech Therapy, Home Health Aide, Medical Social Work, Spiritual Care, Art Therapy, Massage Therapy, Registered Dietitian, Student - Medical Social Work 09/12/2019 Active 1 goal linked to scheduled/documented intervention 1 goal intervention scheduled/documented in this visit Prevention of Skin Breakdown - Pressure Ulcer Disciplines: Penitentiary, Physical Therapy, Occupational Therapy, Speech Therapy, Home Health Aide, Medical Social Work, Spiritual Care, Art Therapy, Massage Therapy, Registered Dietitian, Student - Medical Social Work 09/12/2019 Active 1 goal linked to scheduled/documented intervention 1 goal intervention scheduled/documented in this visit Risk of Falls Disciplines: Penitentiary, Physical Therapy, Occupational Therapy, Speech Therapy, Home Health Aide, Medical Social Work, Spiritual Care, Art Therapy, Massage Therapy, Registered Dietitian, Student - Medical Social Work 09/12/2019 Active 1 goal linked to scheduled/documented intervention 1 goal intervention scheduled/documented in this visit Skilled Assessment Disciplines: Penitentiary 09/12/2019 Active 1 goal linked to scheduled/documented intervention 4 goal interventions scheduled/documented in this visit Goals Goal Associated Problem Outcome Goal Met? Visit Notes Assessment findings goal Abnormal Findings No Code status goal Code Status No Medication management goal Home Medication Management No Catheter infection prevention education goal Infection Prevention - Catheter No Urinary catheter education goal Learning/Teaching Needs - Catheter No Post-op complication goal Learning/Teaching Needs - Joint Replacement No Pain management goal Pain Management No HH/[facility] Goal Prevention of Skin Breakdown - Pressure Ulcer No Balance/Fall risk goal Risk of Falls No Rehospitalization joint replacement goal Skilled Assessment No Interventions Intervention Associated Problem/Goal Status Variance Visit Notes Report abnormal assessment to physician Problem:Abnormal Findings Goal:Assessment findings goal Completed Bleeding precautions Problem:Bleeding Precautions Completed Full Code Problem:Code Status Goal:Code status goal Completed Instruct on high risk medications Problem:Home Medication Management Goal:Medication management goal Completed Review and identify unnecessary therapeutic duplication; cardiovascular medication problems related to dizziness; continued hyper/hypotension or low pulse; falls, dizziness, or confusion; and inappropriate use of non-steroidal anti-inflammatory drugs (NSAIDs). Medication box Problem:Home Medication Management Goal:Medication management goal Completed Skilled assessment medications Problem:Home Medication Management Goal:Medication management goal Completed Teach medication management Problem:Home Medication Management Goal:Medication management goal Completed Instruct infection prevention Problem:Infection Prevention - Catheter Goal:Catheter infection prevention education goal Completed Instruct catheter care Problem:Learning/[place] Needs - Catheter Goal:Urinary catheter education goal Completed Incision site care Problem:Learning/[place]a [place] Needs - Joint Replacement Goal:Post-op complication goal Completed Instruct diet Problem:Learning/[place]a [place] Needs - Joint Replacement Goal:Post-op complication goal Completed Instruct on constipation prevention Problem:Learning/[place] Needs - Joint Replacement Goal:Post-op complication goal Completed Instruct on management of immobility complications Problem:Learning/[place] Needs - Joint Replacement Goal:Post-op complication goal Completed Instruct on the prevention of deep vein thrombosis Problem:Learning/[place] Needs - Joint Replacement Goal:Post-op complication goal Completed Teach Problem:Learning/[place] Needs - Joint Replacement Goal:Post-op complication goal Completed Instruct on pain management techniques Problem:Pain Management Goal:Pain management goal Completed Instruct {HH PATIENT CAREGIVER:[id number]} on medications and alternative strategies to relieve pain. Instruct prevention of pressure ulcers Problem:Prevention of Skin Breakdown - Pressure Ulcer Goal:HH/[facility] Goal Completed Instruct on fall prevention Problem:Risk of Falls Goal:Balance/Fall risk goal Completed Obtain pulse oximetry Problem:Skilled Assessment Goal:Rehospitalizati on joint replacement goal Completed SN/PERMIT AGENT obtain vital signs Problem:Skilled Assessment Goal:Rehospitalizati on joint replacement goal Completed Teaching - disease process Problem:Skilled Assessment Goal:Rehospitalizati on joint replacement goal Completed Skilled observation and assessment general assessment Problem:Skilled Assessment Goal:Rehospitalizati on joint replacement goal Completed Visit Details Visit Type - HH [facility] [place] t of Care Discipline -Penitentiary Interventions Intervention Associated Problem/Goal Status Variance Visit Notes Report abnormal assessment to physician Problem:Abnormal Findings Goal:Assessment findings goal Completed Bleeding precautions Problem:Bleeding Precautions Completed Full Code Problem:Code Status Goal:Code status goal Completed Instruct on high risk medications Problem:Home Medication Management Goal:Medication management goal Completed Pt instructed to use Tramadol around the clock for pain control and take ASA with food. Medication box Problem:Home Medication Management Goal:Medication management goal Completed Bottles reviewed bottle by bottle Skilled assessment medications Problem:Home Medication Management Goal:Medication management goal Completed Pt and taught to take tylenol and tramadol around the clock for pain control. Teach medication management Problem:Home Medication Management Goal:Medication management goal Completed Pt encouraged to take miralax daily and tramadol around the clock. Instruct infection prevention Problem:Infection Prevention - Catheter Goal:Catheter infection prevention education goal Completed able to demonstrate skill Instruct catheter care Problem:Learning/[place] Needs - Catheter Goal:Urinary catheter education goal Completed able to demonstrate skill Incision site care Problem:Learning/[place] Needs - Joint Replacement Goal:Post-op complication goal Completed see wound assessment Instruct diet Problem:Learning/[place] Needs - Joint Replacement Goal:Post-op complication goal Completed pt to increase water and fiber Instruct on constipation prevention Problem:Learning/[place] Needs - Joint Replacement Goal:Post-op complication goal Completed Instruct on management of immobility complications Problem:Learning/[place] Needs - Joint Replacement Goal:Post-op complication goal Completed Instruct on the prevention of deep vein thrombosis Problem:Learning/[place] Needs - Joint Replacement Goal:Post-op complication goal Completed Teach Problem:Learning/[place] Needs - Joint Replacement Goal:Post-op complication goal Completed Instruct on pain management techniques Problem:Pain Management Goal:Pain management goal Completed Pt encouraged to elevate and ice hip Instruct prevention of pressure ulcers Problem:Prevention of Skin Breakdown - Pressure Ulcer Goal:[facility] Goal Completed Instruct on fall prevention Problem:Risk of Falls Goal:Balance/Fall risk goal Completed Obtain pulse oximetry Problem:Skilled Assessment Goal:Rehospitalizatio n joint replacement goal Completed SN/PERMIT AGENT obtain vital signs Problem:Skilled Assessment Goal:Rehospitalizatio n joint replacement goal Completed Teaching - disease process Problem:Skilled Assessment Goal:Rehospitalizatio n joint replacement goal Completed Skilled observation and assessment general assessment Problem:Skilled Assessment Goal:Rehospitalizatio n joint replacement goal Completed Interventions Intervention Associated Problem/Goal Status Variance Visit Notes Assess/Instruct in pain management techniques and evaluate effectiveness. Problem:AP02- Decreased Knowledge of Pain Management Goal:Pain management education goal Scheduled Assess/Instruct in edema management techniques Problem:AP03- Decreased Knowledge of Edema Control Goal:Edema education goal Scheduled Educated patient with importance of icing and elevation to L hip 3x a day for one hour to improve with comfort and reduce edema. Educated patient with importance of elevation and benefits patient will receive which will lead patient to reaching LTGs Report abnormal assessment to physician Problem:Abnormal Findings Goal:Assessment findings goal Scheduled Assess/Instruct in therapeutic exercises and perform manual techniques to improve functional ROM. Problem:PT11- Decreased ROM Goal:Range of motion goal Scheduled Patient performed ankle pumps, quad sets, short-arc quad, heel slides and long arc quad within LLE. Educated patient with importance of chiquita and slowing with ROM to improve with benefit of all exercise. Patient showed no increase in pain or fatigue with exercise and patient tolerating all cues well. Increasing with strength will lead patient to reaching LTGs and increasing with independence outside of home. PT muscle re-education Problem:PT14- Decreased Strength Goal:Strength PT Ortho goal Scheduled PT establish or upgrade home program Problem:PT16- Decreased knowledge of Home Exercise Program Goal:HEP education goal Scheduled Reviewed HEP with patient and educated patient with importance of completing daily to reach LTGs and return to prior level of safety in home. Educated patient with importance of walking program and progressing as tolerated Assess/Instruct in safe bed mobility techniques Problem:PT18- Decreased Bed Mobility Goal:Bed mobility PT Ortho goal Scheduled Patient is minimal assistance with bed mobility with needing assistance within swinging LLE in and out of bed. Verbal cues with RLE support LLE to improve with indepence and progress with comfort. Reducing soreness and increasing mobility within L hip ivis reduce assistance from spouse with bed mobility Assess/Instruct in safe gait techniques in home. Problem:PT20- Decreased Ambulation Ability Goal:Ambulation PT Ortho goal Scheduled Patient is ambulating in home with using FWW and MT at all times. Challenged patient with stepping over and around objects in home to improve with safety and stability in community with reducing assistance from family. Educated patient with importance of good posture and breathing pattern to improve with gait duration and efficiency. Patient was challenged with ambulating on variety of surfaces in home to improve with safety outside of home. Patient was able to ambulate for 2-3 minutes before needing a rest break due to fatigue and weakness within LLE. Educated patient with importance of equal stride length and progressing with heel strike and toe off with gait Assess/Instruct in safe home exit/entry and community prepared mobility techniques Problem:PT23- Decreased Home Exit/Entry Ability Goal:Home exit/entry PT Ortho goal Scheduled not tested due to weather Assess/Instruct in balance and fall prevention techniques Problem:PT24- Decreased Balance/Increased Fall Risk Goal:Balance/Fall risk PT Ortho goal Scheduled Patient was challenged with a variety of dynamic and static balance exercises on a variety of even and uneven surfaces with using no support. Progressing with balance will reduce fall risk when in community and improve transfer safety with less assistance from spouse. Patient was challenged with reaching high and low for objects with showing large weight shifts and crossing midline Cued patient with importance of posture and progressing with anterior lean to improve with safety and reducing posterior sway. Patient showed fair- balance with using no AD and fair balance with using one hand for support Instruct on pain management techniques Problem:Pain Management Goal:Pain management goal Scheduled Instruct on fall prevention Problem:Risk of Falls Goal:Balance/Fall risk goal Scheduled Problems Problem Start Date Status Goals Interventions Abnormal Findings Disciplines: Penitentiary, Physical Therapy, Occupational Therapy, Speech Therapy, Home Health Aide, Medical Social Work, Spiritual Care, Art Therapy, Massage Therapy, Registered Dietitian, Student - Medical Social Work 09/12/2019 Active 1 goal linked to scheduled/documente d intervention 1 goal intervention scheduled/documented in this visit Bleeding Precautions Disciplines: Penitentiary 09/12/2019 Active - 1 problem intervention scheduled/documented in this visit Code Status Disciplines: Penitentiary, Physical Therapy, Occupational Therapy, Speech Therapy, Home Health Aide, Medical Social Work, Spiritual Care, Art Therapy, Massage Therapy, Registered Dietitian, Student - Medical Social Work 09/12/2019 Active 1 goal linked to scheduled/documente d intervention 1 goal intervention scheduled/documented in this visit Home Medication Management Disciplines: Penitentiary 09/12/2019 Active 1 goal linked to scheduled/documente d intervention 4 goal interventions scheduled/documented in this visit Infection Prevention - Catheter Disciplines: Penitentiary 09/12/2019 Resolved on 09/19/2019 1 goal linked to scheduled/documente d intervention 1 goal intervention scheduled/documented in this visit Learning/Teaching Needs - Catheter Disciplines: Penitentiary 09/12/2019 Resolved on 09/19/2019 1 goal linked to scheduled/documente d intervention 1 goal intervention scheduled/documented in this visit Learning/Teaching Needs - Joint Replacement Disciplines: Penitentiary 09/12/2019 Active 1 goal linked to scheduled/documente d intervention 6 goal interventions scheduled/documented in this visit Pain Management Disciplines: Penitentiary, Physical Therapy, Occupational Therapy, Speech Therapy, Home Health Aide, Medical Social Work, Spiritual Care, Art Therapy, Massage Therapy, Registered Dietitian, Student - Medical Social Work 09/12/2019 Active 1 goal linked to scheduled/documente d intervention 1 goal intervention scheduled/documented in this visit Prevention of Skin Breakdown - Pressure Ulcer Disciplines: Penitentiary, Physical Therapy, Occupational Therapy, Speech Therapy, Home Health Aide, Medical Social Work, Spiritual Care, Art Therapy, Massage Therapy, Registered Dietitian, Student - Medical Social Work 09/12/2019 Active 1 goal linked to scheduled/documente d intervention 1 goal intervention scheduled/documented in this visit Risk of Falls Disciplines: Penitentiary, Physical Therapy, Occupational Therapy, Speech Therapy, Home Health Aide, Medical Social Work, Spiritual Care, Art Therapy, Massage Therapy, Registered Dietitian, Student - Medical Social Work 09/12/2019 Active 1 goal linked to scheduled/documente d intervention 1 goal intervention scheduled/documented in this visit Skilled Assessment Disciplines: Penitentiary 09/12/2019 Active 1 goal linked to scheduled/documente d intervention 4 goal interventions scheduled/documented in this visit Interventions Intervention Associated Problem/Goal Status Variance Visit Notes Report abnormal assessment to physician Problem:Abnormal Findings Goal:Assessment findings goal Completed Bleeding precautions Problem:Bleeding Precautions Completed Full Code Problem:Code Status Goal:Code status goal Completed Instruct on high risk medications Problem:Home Medication Management Goal:Medication management goal Completed Review and identify unnecessary therapeutic duplication; cardiovascular medication problems related to dizziness; continued hyper/hypotension or low pulse; falls, dizziness, or confusion; and inappropriate use of non-steroidal anti-inflammatory drugs (NSAIDs). Medication box Problem:Home Medication Management Goal:Medication management goal Completed Skilled assessment medications Problem:Home Medication Management Goal:Medication management goal Completed Teach medication management Problem:Home Medication Management Goal:Medication management goal Completed Instruct infection prevention Problem:Infection Prevention - Catheter Goal:Catheter infection prevention education goal Completed Instruct catheter care Problem:Learning/[place] Needs - Catheter Goal:Urinary catheter education goal Scheduled Incision site care Problem:Learning/[place] Needs - Joint Replacement Goal:Post-op complication goal Completed Instruct diet Problem:Learning/[place] Needs - Joint Replacement Goal:Post-op complication goal Completed Instruct on constipation prevention Problem:Learning/[place] Needs - Joint Replacement Goal:Post-op complication goal Completed Instruct on management of immobility complications Problem:Learning/[place] Needs - Joint Replacement Goal:Post-op complication goal Completed Instruct on the prevention of deep vein thrombosis Problem:Learning/[place] Needs - Joint Replacement Goal:Post-op complication goal Completed Teach Problem:Learning/[place] Needs - Joint Replacement Goal:Post-op complication goal Completed Instruct on pain management techniques Problem:Pain Management Goal:Pain management goal Completed Instruct prevention of pressure ulcers Problem:Prevention of Skin Breakdown - Pressure Ulcer Goal:[facility] Goal Completed Instruct on fall prevention Problem:Risk of Falls Goal:Balance/Fall risk goal Completed Obtain pulse oximetry Problem:Skilled Assessment Goal:Rehospitalizati on joint replacement goal Completed SN/PERMIT AGENT obtain vital signs Problem:Skilled Assessment Goal:Rehospitalizati on joint replacement goal Completed Teaching - disease process Problem:Skilled Assessment Goal:Rehospitalizati on joint replacement goal Completed Skilled observation and assessment general assessment Problem:Skilled Assessment Goal:Rehospitalizati on joint replacement goal Completed Visit Details Visit Type -SN HH OASIS Disc harge Discipline -[facility] Problems Problem Start Date Status Goals Interventions Abnormal Findings Disciplines: Penitentiary, Physical Therapy, Occupational Therapy, Speech Therapy, Home Health Aide, Medical Social Work, Spiritual Care, Art Therapy, Massage Therapy, Registered Dietitian, Student - Medical Social Work 09/12/2019 Resolved on 09/25/2019 1 goal linked to scheduled/documente d intervention 1 goal intervention scheduled/documented in this visit Bleeding Precautions Disciplines: Penitentiary 09/12/2019 Resolved on 09/25/2019 1 goal linked to scheduled/documente d intervention 1 problem intervention scheduled/documented in this visit Code Status Disciplines: Penitentiary, Physical Therapy, Occupational Therapy, Speech Therapy, Home Health Aide, Medical Social Work, Spiritual Care, Art Therapy, Massage Therapy, Registered Dietitian, Student - Medical Social Work 09/12/2019 Resolved on 09/25/2019 1 goal linked to scheduled/documente d intervention 1 goal intervention scheduled/documented in this visit Home Medication Management Disciplines: Penitentiary 09/12/2019 Resolved on 09/25/2019 1 goal linked to scheduled/documente d intervention 4 goal interventions scheduled/documented in this visit Learning/Teaching Needs - Joint Replacement Disciplines: Penitentiary 09/12/2019 Resolved on 09/25/2019 1 goal linked to scheduled/documente d intervention 6 goal interventions scheduled/documented in this visit Pain Management Disciplines: Penitentiary, Physical Therapy, Occupational Therapy, Speech Therapy, Home Health Aide, Medical Social Work, Spiritual Care, Art Therapy, Massage Therapy, Registered Dietitian, Student - Medical Social Work 09/12/2019 Resolved on 09/25/2019 1 goal linked to scheduled/documente d intervention 1 goal intervention scheduled/documented in this visit Prevention of Skin Breakdown - Pressure Ulcer Disciplines: Penitentiary, Physical Therapy, Occupational Therapy, Speech Therapy, Home Health Aide, Medical Social Work, Spiritual Care, Art Therapy, Massage Therapy, Registered Dietitian, Student - Medical Social Work 09/12/2019 Resolved on 09/25/2019 1 goal linked to scheduled/documente d intervention 1 goal intervention scheduled/documented in this visit Risk of Falls Disciplines: Penitentiary, Physical Therapy, Occupational Therapy, Speech Therapy, Home Health Aide, Medical Social Work, Spiritual Care, Art Therapy, Massage Therapy, Registered Dietitian, Student Medical Social Work 09/12/2019 Resolved on 09/25/2019 1 goal linked to scheduled/documente d intervention 1 goal intervention scheduled/documented in this visit Skilled Assessment Disciplines: Penitentiary 09/12/2019 Resolved on 09/25/2019 1 goal linked to scheduled/documente d intervention 4 goal interventions scheduled/documented in this visit Goals Goal Associated Problem Outcome Goal Met? Visit Notes Assessment findings goal Abnormal Findings Met No Absence of active bleeding Bleeding Precautions Met No Code status goal Code Status Met No Medication management goal Home Medication Management Met No Post-op complication goal Learning/Teaching Needs - Joint Replacement Met No Pain management goal Pain Management Met No /[facility] Goal Prevention of Skin Breakdown - Pressure Ulcer Met No Balance/Fall risk goal Risk of Falls Met No Rehospitalization joint replacement goal Skilled Assessment Met No Interventions Intervention Associated Problem/Goal Status Variance Visit Notes Report abnormal assessment to physician Problem:Abnormal Findings Goal:Assessment findings goal Completed Bleeding precautions Problem:Bleeding Precautions Completed Full Code Problem:Code Status Goal:Code status goal Completed Instruct on high risk medications Problem:Home Medication Management Goal:Medication management goal Completed Review and identify unnecessary therapeutic duplication; cardiovascular medication problems related to dizziness; continued hyper/hypotension or low pulse; falls, dizziness, or confusion; and inappropriate use of non-steroidal anti-inflammatory drugs (NSAIDs). Medication box Problem:Home Medication Management Goal:Medication management goal Completed Skilled assessment medications Problem:Home Medication Management Goal:Medication management goal Completed Teach medication management Problem:Home Medication Management Goal:Medication management goal Completed Incision site care Problem:Learning/[place] Needs - Joint Replacement Goal:Post-op complication goal Completed Instruct diet Problem:Learning/[place]a [place] Needs - Joint Replacement Goal:Post-op complication goal Completed Instruct on constipation prevention Problem:Learning/Tea ramone Needs - Joint Replacement Goal:Post-op complication goal Completed Instruct on management of immobility complications Problem:Learning/Tea ramone Needs - Joint Replacement Goal:Post-op complication goal Completed Instruct on the prevention of deep vein thrombosis Problem:Learning/Tea ramone Needs - Joint Replacement Goal:Post-op complication goal Completed Teach Problem:Learning/Tea ramone Needs - Joint Replacement Goal:Post-op complication goal Completed Instruct on pain management techniques Problem:Pain Management Goal:Pain management goal Completed Instruct prevention of pressure ulcers Problem:Prevention of Skin Breakdown - Pressure Ulcer Goal:HH/HSPC Goal Completed Instruct on fall prevention Problem:Risk of Falls Goal:Balance/Fall risk goal Completed Obtain pulse oximetry Problem:Skilled Assessment Goal:Rehospitalizati on joint replacement goal Completed SN/PERMIT AGENT obtain vital signs Problem:Skilled Assessment Goal:Rehospitalizati on joint replacement goal Completed Teaching - disease process Problem:Skilled Assessment Goal:Rehospitalizati on joint replacement goal Completed Skilled observation and assessment general assessment Problem:Skilled Assessment Goal:Rehospitalizati on joint replacement goal Completed Visit Details Visit Type -PT Non-OASIS/Dis cipl Discharge Discipline -Physical Therapy Problems Problem Start Date Status Goals Interventions AP02- Decreased Knowledge of Pain Management Disciplines: Physical Therapy 09/14/2019 Active 1 goal linked to scheduled/documente d intervention 1 goal intervention scheduled/documented in this visit AP03- Decreased Knowledge of Edema Control Disciplines: Physical Therapy 09/14/2019 Active 1 goal linked to scheduled/documente d intervention 1 goal intervention scheduled/documented in this visit Abnormal Findings Disciplines: Penitentiary, Physical Therapy, Occupational Therapy, Speech Therapy, Home Health Aide, Medical Social Work, Spiritual Care, Art Therapy, Massage Therapy, Registered Dietitian, Student - Medical Social Work 09/12/2019 Resolved on 09/25/2019 1 goal linked to scheduled/documente d intervention 1 goal intervention scheduled/documented in this visit PT11- Decreased ROM Disciplines: Physical Therapy 09/14/2019 Active 1 goal linked to scheduled/documente d intervention 1 goal intervention scheduled/documented in this visit PT14- Decreased Strength Disciplines: Physical Therapy 09/14/2019 Active 1 goal linked to scheduled/documente d intervention 1 goal intervention scheduled/documented in this visit PT16- Decreased knowledge of Home Exercise Program Disciplines: Physical Therapy 09/14/2019 Active 1 goal linked to scheduled/documente d intervention 1 goal intervention scheduled/documented in this visit PT18- Decreased Bed Mobility Disciplines: Physical Therapy 09/14/2019 Active 1 goal linked to scheduled/documente d intervention 1 goal intervention scheduled/documented in this visit PT20- Decreased Ambulation Ability Disciplines: Physical Therapy 09/14/2019 Active 1 goal linked to scheduled/documente d intervention 1 goal intervention scheduled/documented in this visit PT23- Decreased Home Exit/Entry Ability Disciplines: Physical Therapy 09/14/2019 Active 1 goal linked to scheduled/documente d intervention 1 goal intervention scheduled/documented in this visit PT24- Decreased Balance/Increased Fall Risk Disciplines: Physical Therapy 09/14/2019 Active 1 goal linked to scheduled/documente d intervention 1 goal intervention scheduled/documented in this visit Pain Management Disciplines: Penitentiary, Physical Therapy, Occupational Therapy, Speech Therapy, Home Health Aide, Medical Social Work, Spiritual Care, Art Therapy, Massage Therapy, Registered Dietitian, Student - Medical Social Work 09/12/2019 Resolved on 09/25/2019 1 goal linked to scheduled/documente d intervention 1 goal intervention scheduled/documented in this visit Risk of Falls Disciplines: Penitentiary, Physical Therapy, Occupational Therapy, Speech Therapy, Home Health Aide, Medical Social Work, Spiritual Care, Art Therapy, Massage Therapy, Registered Dietitian, Student - Medical Social Work 09/12/2019 Resolved on 09/25/2019 1 goal linked to scheduled/documente d intervention 1 goal intervention scheduled/documented in this visit Goals Goal Associated Problem Outcome Goal Met? Visit Notes Pain management education goal AP02- Decreased Knowledge of Pain Management Met No Edema education goal AP03- Decreased Knowledge of Edema Control Met No Assessment findings goal Abnormal Findings No Range of motion goal PT11- Decreased ROM Met No Strength PT Ortho goal PT14- Decreased Strength Partially Met No HEP education goal PT16- Decreased knowledge of Home Exercise Program Met No Bed mobility PT Ortho goal PT18- Decreased Bed Mobility Met No Ambulation PT Ortho goal PT20- Decreased Ambulation Ability Met No Home exit/entry PT Ortho goal PT23- Decreased Home Exit/Entry Ability Partially Met No Balance/Fall risk PT Ortho goal PT24- Decreased Balance/Increased Fall Risk Partially Met No Pain management goal Pain Management No Balance/Fall risk goal Risk of Falls Met No Interventions Intervention Associated Problem/Goal Status Variance Visit Notes Assess/Instruct in pain management techniques and evaluate effectiveness. Problem:AP02- Decreased Knowledge of Pain Management Goal:Pain management education goal Completed Patient to continue taking pain medication as needed/ prescribed in addition to icing L hip throughout the day for pain modulation. Assess/Instruct in edema management techniques Problem:AP03- Decreased Knowledge of Edema Control Goal:Edema education goal Completed Patient to continue elevating LEs throughout the day for swelling control. Report abnormal assessment to physician Problem:Abnormal Findings Goal:Assessment findings goal Completed No abnormal assessment to report to physician this date. Assess/Instruct in therapeutic exercises and perform manual techniques to improve functional ROM. Problem:PT11- Decreased ROM Goal:Range of motion goal Completed SKILLED INTERVENTION: Therapist assessed L hip ROM this session to ensure adequate ranges for safe functional mobility in home environment. Increased L hip flexion observed upon swing phase of gait. PT muscle re-education Problem:PT14- Decreased Strength Goal:Strength PT Ortho goal Completed SKILLED INTERVENTION: LLE strength assessed via MMT grades this session, see D/C Summary for specifics. Ther ex completed to increase LE strength for improved transfers, gait and standing activity tolerance, see treatment log for specifics. PT establish or upgrade home program Problem:PT16- Decreased knowledge of Home Exercise Program Goal:HEP education goal Completed SKILLED INTERVENTION: Reviewed HEP with good patient understanding of prescribed ther ex and recommended reps/ sets/ frequency. Standing HEP handout issued this date. Recommended patient continue elevating LEs and icing L hip at least 3x/ day for swelling and pain modulation. Encouraged patient to continue ambulating short distances frequently throughout the day with use of AD to reduce joint/ muscular stiffness and to increase LE strength. Assess/Instruct in safe bed mobility techniques Problem:PT18- Decreased Bed Mobility Goal:Bed mobility PT Ortho goal Completed Mod I with functional transfers. Assess/Instruct in safe gait techniques in home. Problem:PT20- Decreased Ambulation Ability Goal:Ambulation PT Ortho goal Completed SKILLED INTERVENTION: Gait training completed, see note for specifics. Assess/Instruct in safe home exit/entry and community prepared mobility techniques Problem:PT23- Decreased Home Exit/Entry Ability Goal:Home exit/entry PT Ortho goal Completed Patient with ability to safely enter/ exit home via steps with correct step to pattern, supervision and use of SPC. Assess/Instruct in balance and fall prevention techniques Problem:PT24- Decreased Balance/Increased Fall Risk Goal:Balance/Fall risk PT Ortho goal Completed SKILLED INTERVENTION: Recommended continued use of AD with all standing activity and ambulation for safety at this time. Timed Up and Go test completed safely in 26 seconds with use of SPC. Instruct on pain management techniques Problem:Pain Management Goal:Pain management goal Scheduled Instruct on fall prevention Problem:Risk of Falls Goal:Balance/Fall risk goal Completed See Balance and Fall Prevention tab above for specifics. No falls reported since starting skilled PT services. Goals Goal Associated Problem Outcome Goal Met? Visit Notes Pain management education goal AP02- Decreased Knowledge of Pain Management No Edema education goal AP03- Decreased Knowledge of Edema Control No Assessment findings goal Abnormal Findings No Range of motion goal PT11- Decreased ROM Partially Met No Strength PT Ortho goal PT14- Decreased Strength No HEP education goal PT16- Decreased knowledge of Home Exercise Program No Bed mobility PT Ortho goal PT18- Decreased Bed Mobility Not Met No Ambulation PT Ortho goal PT20- Decreased Ambulation Ability Not Met No Home exit/entry PT Ortho goal PT23- Decreased Home Exit/Entry Ability Partially Met No Balance/Fall risk PT Ortho goal PT24- Decreased Balance/Increased Fall Risk Partially Met No Pain management goal Pain Management No Balance/Fall risk goal Risk of Falls No Interventions Intervention Associated Problem/Goal Status Variance Visit Notes Assess/Instruct in pain management techniques and evaluate effectiveness. Problem:AP02- Decreased Knowledge of Pain Management Goal:Pain management education goal Scheduled patient is having no pain within L hip Assess/Instruct in edema management techniques Problem:AP03- Decreased Knowledge of Edema Control Goal:Edema education goal Scheduled Educated patient with importance of icing and elevation to L hip 3x a day for one hour to improve with comfort and reduce edema. Educated patient with importance of elevation and benefits patient will receive which will lead patient to reaching LTGs Report abnormal assessment to physician Problem:Abnormal Findings Goal:Assessment findings goal Scheduled Assess/Instruct in therapeutic exercises and perform manual techniques to improve functional ROM. Problem:PT11- Decreased ROM Goal:Range of motion goal Scheduled Patient performed ankle pumps, quad sets, short-arc quad, heel slides and long arc quad within LLE. Educated patient with importance of chiquita and slowing with ROM to improve with benefit of all exercise. Patient showed no increase in pain or fatigue with exercise and patient tolerating all cues well. Increasing with strength will lead patient to reaching LTGs and increasing with independence outside of home. PT muscle re-education Problem:PT14- Decreased Strength Goal:Strength PT Ortho goal Scheduled PT establish or upgrade home program Problem:PT16- Decreased knowledge of Home Exercise Program Goal:HEP education goal Scheduled Reviewed HEP with patient and educated patient with importance of completing daily to reach LTGs and return to prior level of safety in home. Educated patient with importance of walking program and progressing as tolerated Assess/Instruct in safe bed mobility techniques Problem:PT18- Decreased Bed Mobility Goal:Bed mobility PT Ortho goal Scheduled not tested due to weakness and faitgue from gait training Assess/Instruct in safe gait techniques in home. Problem:PT20- Decreased Ambulation Ability Goal:Ambulation PT Ortho goal Scheduled Patient is ambulating in home with using FWW and MT at all times. Challenged patient with stepping over and around objects in home to improve with safety and stability in community with reducing assistance from family. Educated patient with importance of good posture and breathing pattern to improve with gait duration and efficiency. Patient was challenged with ambulating on variety of surfaces in home to improve with safety outside of home. Patient was able to ambulate for 2-3 minutes before needing a rest break due to fatigue and weakness within L HIP. Educated patient with importance of equal stride length and progressing with heel strike and toe off with gait to normalize gait pattern Assess/Instruct in safe home exit/entry and community prepared mobility techniques Problem:PT23- Decreased Home Exit/Entry Ability Goal:Home exit/entry PT Ortho goal Scheduled Patient is performing stair mobility with using handrails for support with CGA at all times. Educated patient with which LE to lead with to improve with comfort and stability within L LE. Progressing with strength and mobility within L hip will lead patient to reciprocal gait pattern and require less assistance from family with all stair mobility. Educated patient with importance of posture and foot placement on steps to improve safety and reduce fall risk Assess/Instruct in balance and fall prevention techniques Problem:PT24- Decreased Balance/Increased Fall Risk Goal:Balance/Fall risk PT Ortho goal Scheduled Patient was challenged with a variety of dynamic and static balance exercises on a variety of even and uneven surfaces with using no support. Progressing with balance will reduce fall risk when in community and improve transfer safety with less assistance from spouse. Patient was challenged with reaching high and low for objects with showing large weight shifts and crossing midline Cued patient with importance of posture and progressing with anterior lean to improve with safety and reducing posterior sway. Patient showed fair- balance with using no AD and fair balance with using one hand for support Instruct on pain management techniques Problem:Pain Management Goal:Pain management goal Scheduled Instruct on fall prevention Problem:Risk of Falls Goal:Balance/Fall risk goal Scheduled Problems Problem Start Date Status Goals Interventions Abnormal Findings Disciplines: Penitentiary, Physical Therapy, Occupational Therapy, Speech Therapy, Home Health Aide, Medical Social Work, Spiritual Care, Art Therapy, Massage Therapy, Registered Dietitian, Student - Medical Social Work 09/12/2019 Active 1 goal linked to scheduled/documented intervention 1 goal intervention scheduled/documented in this visit Bleeding Precautions Disciplines: Penitentiary 09/12/2019 Active - 1 problem intervention scheduled/documented in this visit Code Status Disciplines: Penitentiary, Physical Therapy, Occupational Therapy, Speech Therapy, Home Health Aide, Medical Social Work, Spiritual Care, Art Therapy, Massage Therapy, Registered Dietitian, Student - Medical Social Work 09/12/2019 Active 1 goal linked to scheduled/documented intervention 1 goal intervention scheduled/documented in this visit Home Medication Management Disciplines: Penitentiary 09/12/2019 Active 1 goal linked to scheduled/documented intervention 4 goal interventions scheduled/documented in this visit Learning/Teaching Needs - Joint Replacement Disciplines: Penitentiary 09/12/2019 Active 1 goal linked to scheduled/documented intervention 6 goal interventions scheduled/documented in this visit Pain Management Disciplines: Penitentiary, Physical Therapy, Occupational Therapy, Speech Therapy, Home Health Aide, Medical Social Work, Spiritual Care, Art Therapy, Massage Therapy, Registered Dietitian, Student - Medical Social Work 09/12/2019 Active 1 goal linked to scheduled/documented intervention 1 goal intervention scheduled/documented in this visit Prevention of Skin Breakdown - Pressure Ulcer Disciplines: Penitentiary, Physical Therapy, Occupational Therapy, Speech Therapy, Home Health Aide, Medical Social Work, Spiritual Care, Art Therapy, Massage Therapy, Registered Dietitian, Student - Medical Social Work 09/12/2019 Active 1 goal linked to scheduled/documented intervention 1 goal intervention scheduled/documented in this visit Risk of Falls Disciplines: Penitentiary, Physical Therapy, Occupational Therapy, Speech Therapy, Home Health Aide, Medical Social Work, Spiritual Care, Art Therapy, Massage Therapy, Registered Dietitian, Student - Medical Social Work 09/12/2019 Active 1 goal linked to scheduled/documented intervention 1 goal intervention scheduled/documented in this visit Skilled Assessment Disciplines: Penitentiary 09/12/2019 Active 1 goal linked to scheduled/documented intervention 4 goal interventions scheduled/documented in this visit Goals Goal Associated Problem Outcome Goal Met? Visit Notes Assessment findings goal Abnormal Findings No Code status goal Code Status No Medication management goal Home Medication Management No Post-op complication goal Learning/Teaching Needs - Joint Replacement No Pain management goal Pain Management No HH/HSPC Goal Prevention of Skin Breakdown - Pressure Ulcer No Balance/Fall risk goal Risk of Falls No Rehospitalization joint replacement goal Skilled Assessment No Actions Home Health Visit - Actions and Narratives (unrecognized section and content) upper body dressing is corre ct as pt has developed left shoulder pain and has diffculty raising arm to get shirts on and is assisted by his with this. Narratives Patient goes by Andres. Patient is a 84 y/o male referred to physical therapy by Dr. Viveros to address impairments and functional limitations s/p L GBAO Surgery Date: 09/10/19 Returned Home: 09/11/19 Ongoing L hip pain for a couple months prior to surgery. Patient reports irritation to L shoulder, known RTC involvement prior to surgery. Spouse plans to contact Dr. Viveros's office to see if a cortisone injection would be beneficial Living arrangement/ House Set Up: Patient lives with spouse in multiple level home. Primary bedroom/ bathroom and laundry on main, first floor. There are 2 steps, landing, then 1 step to enter/ exit home from side door, 1 handrail with first 2 steps. 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 Treatment may consist of any combination of the following: Ther ex for ROM/ strengthening, NMR, Transfer/ Gait/ Stair training, HEP, cryotherapy, and patient education. Skilled PT services are required to increase L hip ROM and LE strength for improved gait and for safe return to or > PLOF. Deb Menendez RN - 03/08/2020 10:00 AM Sandi Jones RN - 09/10/2019 12:29 PM EST Nursing Notes (unrecognized section and content) Resting ECG RBBB. Tolerated lexiscan well, denies CP with medication. documented in this encounter SENSATION IS AT L4 ON LEFT AND AT L2 ON RIGHT LE. UNABLE TO MOVE LEGS OR WIGGLE TOES documented in this encounter Vijay Viveros MD - 09/10/2019 9:57 AM Vijay Giles MD - 08/25/2019 12:30 PM EST H&P Notes (unrecognized sect ion and content) INTERVAL HISTORY AND PHYSICAL Patient Name: Fawn Cameron Admit Date: [id number] MR #: [id number] : 1935 The H&P has been reviewed and the patient has been examined. I concur with the findings of the H&P. There are no significant changes. It is appropriate to proceed with the planned procedure. Vijay Viveros MD 09/10/2019 9:57 AM Fawn Cameron comes in today. He comes in today for his preoperative consultation regarding his severe left hip degenerative arthrosis. He is looking forward to the surgery. He is tired of the pain tired, tired of the discomfort. Pills, shots and therapy have given him no relief whatsoever. The gentleman we did do a preoperative CT scan for his robotic assistance. 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 It is something that is probably chronic he was unaware of. I will forward this information on to his primary care physician for followup. This gentleman will need to have this aneurysm followed over the years, but it was an incidental finding. He has had no symptoms whatsoever. Today, he is looking forward to the surgical intervention. He has seen his hides soaker, who has given him the all clear and today, he says he cannot take the pain and the discomfort in the left hip, and he is miserable. PAST MEDICAL HISTORY Allergies none. Medicines include amlodipine, benazepril, pravastatin, metoprolol, Prilosec, methotrexate, folic acid, tamsulosin, baby aspirin, multivitamin, glucosamine chondroitin. SURGERIES He has had hernia surgery, cataract. ILLNESSES High cholesterol, high blood pressure, coronary artery disease, cardiac angioplasty with stents. REVIEW OF SYSTEMS Joint pain, chest pain, hearing loss, hip pain, groin pain, back pain. SOCIAL HISTORY He is retired. Does not smoke ,does not drink. FAMILY HISTORY Denies. X-ray examination of the left hip reveals severe endstage left hip degenerative arthrosis. PHYSICAL EXAM His chest is clear. Heart is regular rate and rhythm. His abdomen is benign. No carotid bruits are noted. The gentleman at this point in time skin is intact without lesion. He is normocephalic. Bilateral lower extremities are grossly neurologically intact with 2+ pulses. He has full range of motion of the left ankle and knee. The left hip has severe pain at 100 degrees of hip flexion with 10 degrees of internal and 20 degrees of external rotation causing severe groin pain and thigh pain. Neurologically intact lower extremities with 2+ pulses. Abdomen no palpable masses are noted. Back has scoliotic curvature with some mild tenderness. IMPRESSION 1. Bilateral hip arthrosis, left worse than right. 2. Lumbar degenerative scoliosis. 3. Abdominal aneurysm of 3.4 cm, incidental finding. PLAN At this point in time, we have had a lengthy discussion regarding all potential treatment options. I have discussed all the treatment options with the patient. The patient was a part of the entire decision-making process. I will proceed forward with left total hip replaced. At this time, I also did a narcotics review. He has no listed narcotics. documented in this encounter Molly Finney, OT - 09/11/2019 9:00 AM Summer Doshi, PT - 09/10/2019 5:23 PM Jaci Loving, EAR FLAP BINDER - 09/10/2019 4:30 PM EST Consult Notes (unrecognized section and content) Occupational Therapy OCCUPATIONAL THERAPY EVALUATION NOTE Sx 09/10/19: L THR Skilled Therapy Needs After Discharge Anticipate Resolution of Current Assessment Limitations Including: Pain Are Skilled Therapy Services Needed After Discharge: No DME Recommendation: Adaptive equipment kit DME Rationale: Patient's condition prevents him/her from accomplishing ADL without recommended equipment Rehab Potential: Excellent Outcomes Measures Prior Function Daily Activity: Raw Score: 24 Prior Function Daily Activity % Impaired: 0% functionally impaired AM-PAC Daily Activity: Raw Score: 18 AM-PAC Daily Activity % Impaired: 46.65% functionally impaired Occupational Therapy Assessment The patient presents with musculoskeletal impairment(s) in left lower extremity which create performance deficits including balance, activity tolerance and pain, problem solving, sequencing and safety, and knowledge deficit. These performance impairments limit participation in LE dressing, bathing, toileting and functional mobility in the chosen occupational roles of spouse, family member and community member. The patient's co morbidities do affect patient performance in the above activities and roles. The patient's home setup is a periodicals library assistant and family/caregiver support is a periodicals library assistant for return to prior level of function. The patient's education level is a periodicals library assistant, compliance is a periodicals library assistant and awareness of own capacity and performance is a periodicals library assistant to return to prior level of function. During the assessment, minimal to moderate modification of task was required and several treatment options were identified in the plan of care. This consultation required brief review of the medical and therapy history. Activity Tolerance Activity Tolerance: Tolerates 10 - 20 min activity with multiple rests Therapy Precautions Weight Bearing Status: WFL General Rehab Precautions: Fall risk Cognition Overall Cognitive Status: Within Functional Limits Arousal/Alertness: Appropriate responses to stimuli Orientation Level: Oriented X4 Executive functioning: WFL Safety Judgment: Good awareness of safety precautions Problem Solving: Able to problem solve independently Attention: Attends to distracted environment Hearing Status: WFL Social Interaction: [facility] UE Assessment B UE AROM limited in shoulder flexion to ~90 degrees; able to take to end range with light assist; WFL at elbow, distally. Strength grossly 3-/5 at shoulder and 4+ to 5/5 distally. Able to oppose all digits. ADL/IADL Feeding: Modified independence Grooming : Stand by assistance UE Dressing: Stand by assistance LE Dressing: Mod Toileting : (Declined) Bed Mobility Supine to Sit: (Up in chair) Sit to Supine: (Returned to chair at end of eval process.) Functional Transfers Sit to Stand: Stand by assistance Home Living Type of Home: House Home Layout: Two level, Able to live on main level with bedroom/bathroom, Stairs to enter with rails Bathroom Shower/Tub: Walk-in shower Bathroom Toilet: Raised Bathroom Equipment: Grab bars in shower, Built-in shower seat, Shower chair, Hand-held shower(Grab bar on R of toilet) Bathroom Accessibility: Accessible via walker Home Equipment: Wheeled Walker, Cane, Mathematical Engineer Additional Comments: Been using walker for past few nights to practice before sx, otherwise indep with no AD Prior Level of Function Level of [place]: Independent with ADLs and functional transfers Lives With: Spouse Receives Help From: Family ADL Assistance: Independent Comments: Spouse performs the homemaking and they hire out yard work. Ambulates without a device. 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 Self-Care / Home Management ADL/IADL Skilled Intervention: Patient actively participated in AE training for LB dressing. Given SBA and VC;s, patient able to doff the L sock with ui designer, don same with sock aide, with extra time. Light min A to don shoe; dependent for tying. He was able to doff/don items on the R foot without use of AE. Patient educated on use of ui designer for donning underwear/pants with ui designer for greater ease on the L; was then able to step into the R while seated. Patient pleased with results of AE use. Request for ui designer and sock aid faxed to [facility] and nursing informed. He has a longer type shoe horn and spouse will help with shoe ties until patient able to perform on own. Therapeutic Activities Bed Mobility Functional Transfers Skilled Intervention: SBA chair transfers with good hand placement. SBA with WW to/from sink. Stood at sink several minutes for grooming tasks; required VC's for hand placement on sink surface vs walker for stability/safety. For complete objective data, detailed plan of care and patient education refer to: OT EVALUATION flow sheet, OT TREATMENT flow sheet, patient Plan of Care, Plan of Care progress note, and Patient Education. This note stands as the current Discharge Summary upon patient discharge from the hospital or completion of Occupational Therapy Plan of Care. Physical Therapy PHYSICAL THERAPY EVALUATION NOTE Skilled Therapy Needs After Discharge Anticipate Resolution of Current Assessment Limitations Including: Pain Are Skilled Therapy Services Needed After Discharge: Yes Intensity of Skilled Therapy: 2-3 days per week Anticipated Duration of Skilled Therapy: Duration 10 - 30 days DME Recommendation: Wheeled walker DME Rationale: Patient's condition creates an increased risk of safety hazard without recommended equipment Rehab Potential: Good Outcomes Measures Prior Function - Basic Mobility % Impaired: AM-PAC - Basic Mobility Raw Score: 17 Points AM-PAC - Basic Mobility % Impaired: 43.83% functionally impaired Physical Therapy Assessment History: Dx: L GABO 09/10/19, WBAT The following factors influence the patient's participation in the PT plan of care: Personal factors: age Environmental factors: multi-level home and steps to enter home The following co-morbidities (from this admission or prior) influence the patient's participation in this plan of care: high cholesterol, HTN, CAD, cardiac angioplasty with stents Number of History elements affecting this patient's PT plan of care: 1-2 Examination of Body Systems: The patient presents with impairments of strength, ROM, pain, functional endurance. These impairments result in limitations of gait, functional transfers, stair-climbing, safety and activity tolerance. These impairments result in restrictions of household mobility, community mobility and leisure activities. Number of Body Systems elements affecting this patient's PT plan of care: 1-2 Clinical Presentation: The patient's clinical presentation for this PT evaluation is evolving as evidenced by current PT documentation. Activity Tolerance Activity Tolerance: Tolerates 30 min acitivty with multiple rests Therapy Precautions Weight Bearing Status: WFL General Rehab Precautions: Fall risk Balance Sitting Balance - Static: Supports self independantly with both upper extremities Standing Balance - Static: Supports self independantly with both upper extremities Bed Mobility Supine to Sit: Min Skilled Intervention: Min A for trunk to sit EOB Transfers Sit to Stand: Min Spray Pilot: Wheeled walker Skilled Intervention: Vc for hand placement during STS with good carryover of instruction Gait/Locomotion Gait Assistance: Contact guard Assistive Device: Wheeled walker Distance: 60 Feet Pattern: L impaired heel strike, R decreased step length, L decreased step length Skilled Intervention: Pt ambulated with decreased gait speed and step length with adduction/IR of L foot during stance phase of gait. Vc to maintain foot in neutral position with pt able to correct for few steps. Pt educated on precautions, discharge planning, and mobility through verbal instruction and demonstration. Pt demonstrated understanding of education. Home Living Type of Home: House Home Layout: Two level, Able to live on main level with bedroom/bathroom, Stairs to enter with rails(2+1+1 DYLAN R HR for initial 2 steps) Home Equipment: Cane, Wheeled Walker Additional Comments: Been using walker for past few nights to practice before sx, otherwise indep with no AD Prior Level of Function Level of [place]: Independent with ADLs and functional transfers Lives With: Spouse Receives Help From: Family Comments: takes care of all housework Past Medical History: Diagnosis Date CAD (coronary artery disease) Chest pain Complication of anesthesia slow to wake up GERD (gastroesophageal reflux disease) History of cardiac cath [place] (hard of hearing) Hyperlipidemia Hypertension HANNAH (juvenile idiopathic arthritis), polyarthritis, 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 This note stands as the current Discharge Summary upon patient discharge from the hospital or completion of Physical Therapy Plan of Care. Associated Order(s): IP CONSULT TO CARE MANAGEMENT COMPLEX DISCHARGE Date: 09/10/2019 Time: 4:30 PM Patient Name: Fawn Cameron Date of : 1935 Sex: Male Patient participated in joint camp prior to his scheduled surgery today with Dr. Viveros. Patient resides at home with his . Plan developed at that time was for the patient to return home at discharge with services from [facility] and a referral was made at that time. Care management stars coordinator met with the patient today post surgery and confirmed the plan remains for the patient to return home at discharge with services from [facility]. The patient lives in a 2 story home with 5 steps and a handrail on the right to enter. Their bedroom, bathroom, and laundry are on the first floor. The bathroom has a walk-in shower, with grab bars and a seat. The commode is handicap accessible. Notify home health care completed. Patient to return home with [facility] at discharge. LAKIA JiangS Discharge Plan Shared UM/CC and RN Living Arrangements: Spouse/significant other Support Systems: Spouse/significant other Functional Status: Independent Type of Residence: Private residence Prior to Admission Home Care Services: No [facility] Disposition D/C Disposition: Home Health Care Services Related to Current Admission?: Yes Agency/Destination: [facility] Home Care Needs : Home health care Reason for Choice: Patient/Family prefernce documented in this encounter Care Teams (unrecognized sec tion and content) Truer Pinion And Wheel Relationship Specialty Start Date End Date Don Barrera MD [address] [place] [address] PCP - General Family Medicine 03/21/16 Vijay Viveros MD Consulting Physician Orthopedic Surgery 09/11/19 Truer Pinion And Wheel Relationship Specialty Start Date End Date Don Barrera MD [address] [place] [address] PCP - General Family Medicine 03/21/16 Vijay Viveros MD Consulting Physician Orthopedic Surgery 09/11/19 Truer Pinion And Wheel Relationship Specialty Start Date End Date Don Barrera MD [address] [place] [address] PCP - General Family Medicine 03/21/16 Vijay Viveros MD Consulting Physician Orthopedic Surgery 09/11/19 Truer Pinion And Wheel Relationship Specialty Start Date End Date Don Barrera MD [address] [place] [address] PCP - General Family Medicine 03/21/16 Vijay Viveros MD [address] [facility] [place] [phone] Consulting Physician Orthopedic Surgery 09/11/19 Truer Pinion And Wheel Relationship Specialty Start Date End Date Don Barrera MD [address] [place] [address] PCP - General Family Medicine 03/21/16 Vijay Viveros MD [address] [facility] [place] [address] Consulting Physician Orthopedic Surgery 09/11/19 Truer Pinion And Wheel Relationship Specialty Start Date End Date Don Barrera MD PCP - General Internal Medicine 04/10/13 Truer Pinion And Wheel Relationship Specialty Start Date End Date Don Barrera MD [address] [place] [address] PCP - General 06/24/19 Don Barrera MD [address] [place] [address] PCP - [facility] ACO Attributed Provider 10/22/21 Truer Pinion And Wheel Relationship Specialty Start Date End Date Don Barrera MD [address] [place], [facility] PCP - General 06/24/19 Don Barrera MD [address] [place] [address] PCP - [facility] ACO Attributed Provider 10/22/21 Truer Pinion And Wheel Relationship Specialty Start Date End Date Don Barrera MD [address] [place] [id number] PCP - [facility]CO Attributed Provider 10/22/21 Don Barrera MD [address] [place] [address] PCP - General Family Medicine 07/22/23 Truer Pinion And Wheel Relationship Specialty Start Date End Date Don Barrera MD PCP - General Internal Medicine 04/10/13 Howard Soria OD [address] [place] [place] [address] Optometry 08/29/23 Truer Pinion And Wheel Relationship Specialty Start Date End Date Don Barrera MD [address] [place] [id number] PCP - [facility] ACO Attributed Provider 10/22/21 Don Barrera MD [address] [place] [address] PCP - General Family Medicine 07/22/23 Truer Pinion And Wheel Relationship Specialty Start Date End Date Don Barrera MD [address] [place] [id number] PCP - [facility] ACO Attributed Provider 10/22/21 Don Barrera MD [address] [place] [address] PCP - General Family Medicine 07/22/23 Truer Pinion And Wheel Relationship Specialty Start Date End Date Don Barrera MD [address] [place] [id number] PCP - [facility] ACO Attributed Provider 10/22/21 Don Barrera MD [address] [place] [phone] PCP - General Family Medicine 07/22/23 Truer Pinion And Wheel Relationship Specialty Start Date End Date Don Barrera MD [address] [place] [address] PCP - General Family Medicine 03/21/16 Vijay Viveros MD [address] [place] [address] Consulting Physician Orthopedic Surgery 09/11/19 Truer Pinion And Wheel Relationship Specialty Start Date End Date Don Barrera MD [address] [place] [address] PCP - General Family Medicine 03/21/16 Vijay Viveros MD [address] [place] [address] Consulting Physician Orthopedic Surgery 09/11/19 Truer Pinion And Wheel Relationship Specialty Start Date End Date Don Barrera MD [address] [place] [address] PCP - [facility]CO Attributed Provider 10/22/21 Don Barrera MD [address] [place] [address] PCP - General Family Medicine 07/22/23 Truer Pinion And Wheel Relationship Specialty Start Date End Date Don Barrera MD [address] [place] [address] PCP - [facility]CO Attributed Provider 10/22/21 Don Barrera MD [address] [place] [address] PCP - General Family Medicine 07/22/23 Truer Pinion And Wheel Relationship Specialty Start Date End Date Don Barrera MD [address] [place] [address] PCP - [facility] ACO Attributed Provider 10/22/21 Don Barrera MD [address] [place] [address] PCP - General Family Medicine 07/22/23 Truer Pinion And Wheel Relationship Specialty Start Date End Date Don Barrera MD [address] [place] [address] PCP - [facility] ACO Attributed Provider 10/22/21 Don Barrera MD [address] [place] [address] PCP - General Family Medicine 07/22/23 Truer Pinion And Wheel Relationship Specialty Start Date End Date Don Barrera MD [address] [place] [address] PCP - [facility] ACO Attributed Provider 10/22/21 Don Barrera MD [address] [place] [address] PCP - General Family Medicine 07/22/23 Truer Pinion And Wheel Relationship Specialty Start Date End Date Don Barrera MD [address] [place] [address] PCP - [facility]CO Attributed Provider 10/22/21 Don Barrera MD [address] [place] [address] PCP - General Family Medicine 07/22/23 Truer Pinion And Wheel Relationship Specialty Start Date End Date Don Barrera MD [address] [place] [address] PCP - [facility] ACO Attributed Provider 10/22/21 Don Barrera MD [address] [place] [address] PCP - General Family Medicine 07/22/23 Truer Pinion And Wheel Relationship Specialty Start Date End Date Don Barrera MD [address] [place] [phone] PCP - General Family Medicine 03/21/16 Vijay Viveros MD [address] [place] [address] Consulting Physician Orthopedic Surgery 09/11/19 Truer Pinion And Wheel Relationship Specialty Start Date End Date Don Barrera MD [address] [place], [place] [phone] PCP - [facility] Attributed Provider 10/22/21 Don Barrera MD [address] [place] [address] PCP - General Family Medicine 07/22/23 Truer Pinion And Wheel Relationship Specialty Start Date End Date Don Barrera MD [address] [place] [phone] PCP - General Family Medicine 03/21/16 Vijay Viveros MD [address] [place] [address] Consulting Physician Orthopedic Surgery 09/11/19 Truer Pinion And Wheel Relationship Specialty Start Date End Date Don Barrera MD PCP - General Internal Medicine 04/10/13 Howard Soria OD [address] [place] [address] Optometry 08/29/23 Truer Pinion And Wheel Relationship Specialty Start Date End Date Don Barrera MD [address] [place] [address] PCP - [facility] ACO Attributed Provider 10/22/21 Don Barrera MD [address] [place] [address] PCP - General Family Medicine 07/22/23 Truer Pinion And Wheel Relationship Specialty Start Date End Date Don Barrera MD [address] [place] [address] PCP - [facility] ACO Attributed Provider 10/22/21 Don Barrera MD [address] [place] [address], [place] [address] PCP - General Family Medicine 07/17/24 Truer Pinion And Wheel Relationship Specialty Start Date End Date Don Barrera MD [address] [place] [address] PCP - [facility] ACO Attributed Provider 10/22/21 Don Barrera MD [address] [place] [address], [place] [address] PCP - General Family Medicine 07/17/24 Truer Pinion And Wheel Relationship Specialty Start Date End Date Don Barrera MD [address] [place] [address] PCP - [facility] ACO Attributed Provider 10/22/21 Don Barrera MD [address] [place] [address] PCP - General Family Medicine 07/17/24 Truer Pinion And Wheel Relationship Specialty Start Date End Date Don Barrera MD [address] [place] [phone] PCP - General Family Medicine 03/21/16 Vijay Viveros MD [address] [place] [phone] Consulting Physician Orthopedic Surgery 09/11/19 Truer Pinion And Wheel Relationship Specialty Start Date End Date Don Barrera MD [address] [place] [address] PCP - [facility] ACO Attributed Provider 10/22/21 Don Barrera MD [address] [place] [address] PCP - General Family Medicine 07/22/23 Truer Pinion And Wheel Relationship Specialty Start Date End Date Don Barrera MD [address] [place] [address] PCP - [facility] ACO Attributed Provider 10/22/21 Don Barrera MD [address] [place] [address] PCP - General Family Medicine 07/22/23 Truer Pinion And Wheel Relationship Specialty Start Date End Date Don Barrera MD [address] [place] [address] PCP - [facility] ACO Attributed Provider 10/22/21 Don Barrera MD [address] [place] [address] PCP - General Family Medicine 07/22/23 Truer Pinion And Wheel Relationship Specialty Start Date End Date Don Barrera MD [address] [address] PCP - [facility] ACO Attributed Provider 10/22/21 Don Barrera MD [address] [address] PCP - General Family Medicine 07/17/24 Truer Pinion And Wheel Relationship Specialty Start Date End Date Don Barrera MD [address] [place] [phone] PCP - General Family Medicine 03/21/16 Vijay Viveros MD [address] [place] [phone] Consulting Physician Orthopedic Surgery 09/11/19 Truer Pinion And Wheel Relationship Specialty Start Date End Date Don Barrera MD [address] [place] [phone] PCP - [facility] ACO Attributed Provider 10/22/21 Don Barrera MD [address] [address] PCP - General Family Medicine 07/17/24 Truer Pinion And Wheel Relationship Specialty Start Date End Date Don Barrera MD [address] [address] PCP - [facility] ACO Attributed Provider 10/22/21 oDn Barrera MD [address] [address] PCP - General Family Medicine 07/17/24 Truer Pinion And Wheel Relationship Specialty Start Date End Date Don Barrera MD [address] [address] PCP - [facility] ACO Attributed Provider 10/22/21 Don Barrera MD [address] [address] PCP - General Family Medicine 07/17/24 Truer Pinion And Wheel Relationship Specialty Start Date End Date Don Barrera MD [address] [address] PCP - [facility] ACO Attributed Provider 10/22/21 Don Barrera MD [address] [address] PCP - General Family Medicine 07/17/24 Truer Pinion And Wheel Relationship Specialty Start Date End Date Don Barrear MD [address] [address] PCP - [facility] ACO Attributed Provider 10/22/21 Don Barrera MD [address] [address] PCP - General Family Medicine 07/17/24 <item> Privacy Markings (unrecogniz ed section and content) Section Author: Fiona Agudelo PROHIBITION ON REDISCLOSURE OF CONFIDENTIAL INFORMATION This notice accompanies a disclosure of information concerning a client made to you with the consent of such client. Source Comments (unrecognize d section and content) In the event this informatio n is protected by the Federal Confidentiality of Alcohol and Drug Abuse Patient Records regulations: The Federal rules restrict any use of the information to criminally investigate or prosecute any alcohol or drug abuse patient.[facility] the event this information is protected by the Federal Confidentiality of Alcohol and Drug Abuse Patient Records regulations: The Federal rules restrict any use of the information to criminally investigate or prosecute any alcohol or drug abuse patient.[facility] the event this information is protected by the Federal Confidentiality of Alcohol and Drug Abuse Patient Records regulations: The Federal rules restrict any use of the information to criminally investigate or prosecute any alcohol or drug abuse patient.[facility] Scheduled Active and Recently Administ ered Medications (unrecognized section and content) Medication Order 07/21/2023 07/22/2023 07/23/2023 meclizine (Antivert) tablet 25 mg (COMPLETED) 25 mg, oral, Once, On 07/22/23 at 2235, For 1 dose 2257 (Given - Provider: Fatou Landeros, ANNA) sodium chloride 0.9 % bolus 500 mL (COMPLETED) 500 mL, intravenous, at 500 mL/hr, Administer over 1 Hours, Once, On 07/22/23 at 2235, For 1 dose 2258 (New Bag - Provider: Fatou Landeros, ANNA) 0012 (Stopped - Provider: Fatou Landeros RN) Scheduled Medication Order 11/09/2023 11/10/2023 11/11/2023 acetaminophen (Tylenol) tablet 650 mg (COMPLETED) 650 mg, oral, Once, On 11/11/23 at 2155, For 1 dose, If ordered PRN for pain, nurse is permitted to administer this medication for higher pain scores based on patient preference? Yes 2221 (Given - Provid er: Micheline Stout RN) sodium chloride 0.9 % bolus 1,000 mL (COMPLETED) 1,000 mL, intravenous, at 1,000 mL/hr, Administer over 1 Hours, Once, On 11/11/23 at 2055, For 1 dose 2058 (New Bag - Prov ider: Mercedes Robles RN)2223 (Stopped - Provider: Micheline Stout RN) Scheduled Medication Order 11/13/2023 11/14/2023 11/15/2023 meclizine (Antivert) tablet 25 mg (COMPLETED) 25 mg, oral, Once, On Mesha 11/15/23 at 1630, For 1 dose 1643 (Given - Provid er: Jaci Soto RN) ondansetron (Zofran) injection 4 mg 4 mg, intravenous, Once, On Mesha 11/15/23 at 1630, For 1 dose, When administering via IV Push, administer over 3-5 minutes. 1630 (Not Given - Pr ovider: Tess Tompkins RN - Reason: Patient/family refused) sodium chloride 0.9 % bolus 500 mL (COMPLETED) 500 mL, intravenous, at 1,000 mL/hr, Administer over 30 Minutes, Once, On Mesha 11/15/23 at 1630, For 1 dose 164 (New Bag - Prov ider: Jaci Soto RN)171 (Stopped - Provider: Jaci Soto RN) Scheduled Medication Order 05/08/2025 05/09/2025 05/10/2025 bacitracin ointment 1 Application (COMPLETED) 1 Application, Topical, Once, On 05/10/25 at 1405, For 1 dose, Apply to: right hand skin avulsions 1711 (Given - Provid er: Janki Maxwell RN) HYDROmorphone (Dilaudid) injection 0.5 mg (COMPLETED) 0.5 mg, intravenous, Once, On 05/10/25 at 1935, For 1 dose 1999 (Given - Provid er: Iliana Chan, ANNA) iohexol (OMNIPaque) 350 mg iodine/mL solution 95 mL (COMPLETED) 95 mL, intravenous, Once in imaging, Starting on 05/10/25 at 1506, For 1 dose 1506 (Given - Provid er: Eliceo Christopher, RT - Comment: 3.5 mL/s) lidocaine-epinephrine (Xylocaine W/EPI) 1 %-1:100,000 injection 20 mL (COMPLETED) 20 mL, infiltration, Once, On 05/10/25 at 1405, For 1 dose 173 (Given - Provid er: Iliana Chan, ANNA - Comment: administered by PA) morphine injection 2 mg (COMPLETED) 2 mg, intravenous, Once, On 05/10/25 at 1705, For 1 dose 171 (Given - Provid er: Janki Maxwell RN) ondansetron (Zofran) injection 4 mg (COMPLETED) 4 mg, intravenous, Once, On 05/10/25 at 1705, For 1 dose, When administering via IV Push, administer over 3-5 minutes. 171 (Given - Provid er: Janki Maxwell RN) Scheduled Medication Order 05/18/2025 05/19/2025 05/20/2025 acetaminophen (Tylenol) tablet 650 mg 650 mg, nasoduodenal tube, Every 6 hours scheduled, First dose (after last modification) on 05/16/25 at 0900, If ordered PRN for pain, nurse is permitted to administer this medication for higher pain scores based on patient preference? Yes 0214 (Not Given - Provider: Juana Mclean RN - Reason: Patient/family refused)0910 (Given - Provider: Yusuf Mcarthur RN)1558 (Not Given - Provider: Yusuf Mcarthur RN - Reason: Other)2057 (Given - Provider: Juana Mclean RN) 0212 (Not Given - Provider: Juana Mclean RN - Reason: Patient/family refused)0923 (Given - Provider: Yusuf Mcarthur RN)1823 (Not Given - Provider: Yusuf Mcarthur RN - Reason: Other)2133 (Given - Provider: Doyle Greene RN) 0505 (Given - Provider: Doyle Greene RN)1021 (Given - Provider: Mack Mckinley, ANNA)1403 (Not Given - Provider: Mack Mckinley RN - Reason: Patient/family refused - Comment: Refused d/t awaiting transport)2100 (Due) aspirin chewable tablet 81 mg 81 mg, oral, Daily, First dose on 05/17/25 at 1530 0910 (Given - Provider: Yusuf Mcarthur RN) 0923 (Given - Provider: Yusuf Mcarthur RN) 1021 (Given - Provider: Mack Mckinley RN) cholecalciferol (Vitamin D-3) tablet 125 mcg 125 mcg, nasoduodenal tube, Daily, First dose (after last modification) on 05/16/25 at 0900 0910 (Given - Provider: Yusuf Mcarthur RN) 0922 (Given - Provider: Yusuf Mcarthur RN) 1021 (Given - Provider: Mack Mckinley RN) cyanocobalamin (Vitamin B-12) tablet 1,000 mcg 1,000 mcg, nasoduodenal tube, Daily, First dose (after last modification) on 05/16/25 at 0900 0910 (Given - Provider: Yusuf Mcarthur RN) 0923 (Given - Provider: Yusuf Mcarthur RN) 1021 (Given - Provider: Mack Mckinley RN) enoxaparin (Lovenox) syringe 30 mg 30 mg, subcutaneous, Every 12 hours scheduled, First dose on 05/13/25 at 1200 1335 (Given - Provider: Charde L Lyubov, RN)2326 (Given - Provider: Juana Mclean RN) 1332 (Given - Provider: Yusuf Mcarthur RN) 0029 (Given - Provider: Doyle Greene RN)1228 (Given - Provider: Mack Mckinley, ANNA) metoprolol tartrate (Lopressor) tablet 12.5 mg 12.5 mg, nasoduodenal tube, 2 times daily, First dose (after last modification) on 05/16/25 at 0900, Hold for SBP<110, HR<70 0910 (Given - Provider: Yusuf Mcarthur RN)2058 (Given - Provider: Juana Mclean RN) 922 (Given - Provider: Yusuf Mcarthur RN)213 (Given - Provider: Doyle Greene RN) 102 (Given - Provider: Mack Mckinley, ANNA)2100 (Due) pantoprazole (ProtoNix) EC tablet 40 mg 40 mg, oral, Daily before breakfast, First dose on 05/16/25 at 0745, Do not crush, chew, or split. 0902 (Not Given - Provider: Yusuf Mcarthur RN - Reason: Other) 0917 (Not Given - Provider: Yusuf Mcarthur RN - Reason: Other) 0652 (Not Given - Provider: Doyle Greene RN - Reason: NPO) polyethylene glycol (Glycolax, Miralax) packet 17 g 17 g, nasoduodenal tube, Daily, First dose (after last modification) on 05/16/25 at 0900, Bowel Regimen - for prevention of constipation. 0901 (Not Given - Provider: Yusuf Mcarthur RN - Reason: Contraindicated) 0911 (Not Given - Provider: Yusuf Mcarthur RN - Reason: Contraindicated) 1026 (Not Given - Provider: Mack Mckinley RN - Reason: Other - Comment: Mx BMs in last 24 hours) pravastatin (Pravachol) tablet 40 mg 40 mg, nasogastric tube, Nightly, First dose (after last modification) on 05/16/25 at 2099 2056 (Given - Provider: Juana Mclean RN) 213 (Given - Provider: Doyle Greene RN) 2100 (Due) PRN Medication Order 05/18/2025 05/19/2025 05/20/2025 bisacodyl (Dulcolax) EC tablet 5 mg 5 mg, oral, Daily PRN, constipation, second line, Starting on Sun05/13/25 at 1330, Do not give within 1 hour of antacids, milk, or dairy products. Do not crush, chew, or split. lidocaine 2 % mucosal jelly (Uro-Jet) 1 Application 1 Application, Topical, Once as needed, pain mild (1-3), first line, tube placement and maintenance, Starting on Sun05/15/25 at 1321, For 1 dose, Apply to affected area. ondansetron (Zofran) injection 4 mg(Linked Group 1) 4 mg, intravenous, Every 8 hours PRN, nausea/vomiting, first line, Starting on 05/16/25 at 0717, 1st Line. Give IV if patient is unable to take orally. If inadequate response within 60 minutes, proceed to next-line agent for same PRN reason or contact provider if no further options ordered. When administering via IV Push, administer over 3-5 minutes. ondansetron (Zofran) tablet 4 mg(Linked Group 1) 4 mg, nasoduodenal tube, Every 8 hours PRN, nausea/vomiting, first line, Starting on 05/16/25 at 0717, 1st Line. Use oral route first, if possible. If inadequate response within 60 minutes, proceed to next-line agent for same PRN reason or contact provider if no further options ordered. oxyCODONE (Roxicodone) immediate release tablet 2.5 mg 2.5 mg, nasoduodenal tube, Every 6 hours PRN, pain moderate (4-6), first line, Starting on 05/16/25 at 0717, If ordered PRN for pain, nurse is permitted to administer this medication for higher pain scores based on patient preference? Yes oxyCODONE (Roxicodone) immediate release tablet 5 mg 5 mg, nasoduodenal tube, Every 4 hours PRN, pain severe (7-10), first line, Starting on 05/16/25 at 0717, If ordered PRN for pain, nurse is permitted to administer this medication for higher pain scores based on patient preference? Yes sennosides (Senokot) tablet 8.6 mg 8.6 mg (1 tablet), nasoduodenal tube, Nightly PRN, constipation, first line, Starting on 05/16/25 at 0717 Linked Groups Order Group 1: ondansetron (Zofran) tablet 4 mgJump to med 4 mg, nasoduodenal tube, Every 8 hours PRN, nausea/vomiting, first line, Starting on 05/16/25 at 0717, 1st Line. Use oral route first, if possible. If inadequate response within 60 minutes, proceed to next-line agent for same PRN reason or contact provider if no further options ordered. Or ondansetron (Zofran) injection 4 mgJump to med 4 mg, intravenous, Every 8 hours PRN, nausea/vomiting, first line, Starting on 05/16/25 at 0717, 1st Line. Give IV if patient is unable to take orally. If inadequate response within 60 minutes, proceed to next-line agent for same PRN reason or contact provider if no further options ordered. When administering via IV Push, administer over 3-5 minutes. FOR RECORDS PERTAINING TO PATIENTS WHO ARE OR HAVE BEEN ENROLLED IN A CHEMICAL DEPENDENCY/SUBSTANCEABUSE PROGRAM, SOME INFORMATION MAY BE OMITTED. This clinical summary was aggregated from multiple sources. Caution should be exercised in using it in the provision of clinical care. This summary normalizes information from multiple sources, and as a consequence, information in this document may materially change the coding, format and clinical context of patient data. In addition, data may be omitted in some cases. CLINICAL DECISIONS SHOULD BE BASED ON THE PRIMARY CLINICAL RECORDS. [employer] [facility]. provides no warranty or guarantee of the accuracy or completeness of information in this document.
--- NOTE | 2025-05-20 21:30 | PCM.HP.STD ---
HPI - General General Date of Admission: 05/20/25 Date of Service: 05/20/25 Chief Complaint: Here for rehabilitation. HPI Narrative FAWN YEPEZ, is a 89 Male who presents with followin05/10/2025 Admit [facility]. 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 Injuries: 1. Right orbital floor. 2. Buckle fracture right anterior cranial floor/orbital roof. 3. Small right subdural hematoma. 4. Trace right frontal SAH. 5. Bilateral pubic rami fracture with extension to acetabular wall. 6. Nondisplaced Sacral ala fracture right. Incidental findings: 1. 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 2. Left common iliac aneurysm.. 3. Right common iliac aneurysm. Neurosurgery recommended Keppra 500mg bid, sbp < 160, hold anticoagulation, neuro checks q4h, for SAH/SDH. No surgery for right orbital roof fracture. PT/OT/CM for discharge planning. 05/12/2025 Restart Aspirin 81mg daily 05/17/2025. WBAT bilateral lower extremity for bilateral pubic rami fracture. 05/14/2025 CORK INSULATOR recommended NPO. 05/15/2025 No acute events overnight. Dobbhoff tube placed for TF. 05/16/2025 Advance TF to goal. 05/18/2025 No acute events overnight. Dizzy with PT. 05/19/2025 PT/OT/CM for SNF. 05/20/2025 Admit to TCU with debility, here for rehabilitation, strengthening, prior to discharge home with . [facility] Medical History (Updated 05/20/25 @ 21:[address] Jesus Alberto Wiggins MD) Dysphagia Hyperlipidemia Depression BPH (benign prostatic hyperplasia) TIA (transient ischemic attack) Coronary artery disease Carotid artery stenosis Osteoarthritis Essential (primary) hypertension GERD (gastroesophageal reflux disease) Sacral fracture Bilateral pubic rami fractures SAH (subarachnoid hemorrhage) SDH (subdural hematoma) Orbital roof fracture Orbital floor fracture Debility Home Medications ?Medication ?Instructions ?Recorded ?Last Taken ?Type acetaminophen 325 mg capsule 650 mg feeding tube Q6H Pain 05/20/25 05/20/25 10:20 History alfuzosin 10 mg tablet,extended 10 mg PO DAILY BPH 05/20/25 Unknown History release 24 hr amitriptyline 10 mg tablet 10 mg feeding tube QHS Mood 05/20/25 Unknown History amlodipine 5 mg tablet 5 mg feeding tube DAILY BP 05/20/25 Unknown History aspirin 81 mg tablet 81 mg PO DAILY Heart 05/20/25 Unknown History benazepril 40 mg tablet 40 mg feeding tube DAILY BP 05/20/25 Unknown History bisacodyl 5 mg tablet 5 mg PO DAILY PRN constipation 05/20/25 Unknown History cholecalciferol (vitamin D3) 125 125 mcg feeding tube DAILY 05/20/25 05/20/25 10:20 History mcg (5,000 unit) tablet Supplement cyanocobalamin (vitamin B-12) 1,000 mcg PO DAILY Supplement 05/20/25 05/20/25 10:25 History 1,000 mcg capsule enoxaparin 30 mg/0.3 mL 30 mg subcut Q12H DVT prophylaxis 05/20/25 05/20/25 12:30 History subcutaneous syringe escitalopram oxalate 5 mg tablet 5 mg feeding tube DAILY Mood 05/20/25 Unknown History folic acid 1 mg tablet 2 mg feeding tube DAILY Supplement 05/20/25 Unknown History methotrexate sodium 5 mg tablet 20 mg feeding tube QWEEK Arthritis 05/20/25 Unknown History (Trexall) metoprolol tartrate 25 mg tablet 25 mg feeding tube BID BP 05/20/25 Unknown History omeprazole 40 mg capsule,delayed 40 mg PO DAILY GERD 05/20/25 Unknown History release ondansetron HCl 4 mg tablet 4 mg feeding tube Q8H PRN nausea 05/20/25 Unknown History and vomiting oxycodone 5 mg tablet 5 mg feeding tube Q4H PRN pain 05/20/25 Unknown History (scale score 7-10) pantoprazole 40 mg tablet,delayed 40 mg PO DAILY GERD 05/20/25 Unknown History release polyethylene glycol 3350 17 17 g feeding tube DAILY 05/20/25 Unknown History gram/dose oral powder (Miralax) Constipation pravastatin 40 mg tablet 40 mg feeding tube QHS Cholesterol 05/20/25 Unknown History sennosides 8.6 mg tablet (Senokot) 8.6 mg PO QHS Constipation 05/20/25 Unknown History vitamins A,C,U-wgpq-npdikm 4,296 1 cap PO DAILY Eye Vitamin 05/20/25 Unknown History mcg-226 mg-90 mg capsule (Healthy Eyes SuperVision) Allergy/AdvReac Type Severity Reaction Status Date / Time No Known Allergies Allergy Verified 05/20/25 19:39 Family History (Updated 05/20/25 @ 21:[address] Jesus Alberto Wiggins MD) Mother Hypertension Hyperlipidemia, unspecified Osteoarthritis Hearing loss Vision loss Father Heart disease Pneumonia CVA (cerebral vascular accident) Hearing loss Suicide attempt Surgical History (Updated 05/20/25 @ 21:[address] Jesus Alberto Wiggins MD) History of wisdom tooth extraction History of vasectomy History of tonsillectomy and adenoidectomy History of total hip arthroplasty History of shoulder surgery History of hernia repair History of colonoscopy History of circumcision History of cataract surgery History of cardiac catheterization Social History (Updated 05/20/25 @ 21:[address] Jesus Alberto Wiggins MD) household members: spouse Smoking Status: Former smoker alcohol intake: never substance use type: does not use ROS Constitutional Constitutional: Reports weakness; Denies chills, fever(s) or weight gain ENT HEENT: Denies headache(s), nasal congestion or nasal discharge Cardiovascular Cardiovascular: Denies chest pain or palpitations Respiratory/Chest Respiratory/Chest: Denies cough, excessive phlegm production or shortness of breath with exertion Gastrointestinal Gastrointestinal: Denies abdominal pain, nausea or vomiting Genitourinary Genitourinary: Denies dysuria Musculoskeletal Musculoskeletal: Denies joint pain or joint swelling Integumentary Integumentary: Denies rash or wounds Neurologic Neurologic: Denies focal weakness, numbness or tingling Psychiatric Psychiatric: Denies anxiety, auditory hallucinations, depression, homicidal ideation or suicidal ideation Vital Signs Vital Signs Vital Signs: 05/20/25 18:06 05/20/25 21:14 Temperature 98.0 F Temperature Source Temporal Pulse Rate 96 101 H Respiratory Rate 17 Blood Pressure 142/91 H 141/81 H Blood Pressure Mean 108 101 Blood Pressure Source Monitor Monitor Blood Pressure Position Semi-Fowlers Semi-Fowlers Blood Pressure Location Right Arm Right Arm Pulse Ox 91 Oxygen Delivery Method Room Air Weight Weight: 63.458 kg Body Mass Index (BMI) 22.6 Physical Exam Const alert General Appearance: cooperative HEENT normocephalic HEENT Narrative: Dobbhoff tube. Eyes PERRL and EOMs intact bilaterally Neck supple, no JVD and no carotid bruits Resp normal respiratory effort, normal air movement and clear to auscultation bilaterally Cardio regular rate and regular rhythm GI normal to inspection, nondistended, normoactive bowel sounds, non-tender and non-distended Extremity normal capillary refill General Extremity: Negative for edema Skin no rashes or lesions noted General Skin Exam: no breakdown Psych affect normal Appearance: appropriate Assessment & Plan Assessment/Plan (1) Debility: (2) Orbital floor fracture: (3) Orbital roof fracture: (4) SDH (subdural hematoma): (5) SAH (subarachnoid hemorrhage): (6) Bilateral pubic rami fractures: (7) Sacral fracture: (8) GERD (gastroesophageal reflux disease): (9) Essential (primary) hypertension: (10) Osteoarthritis: (11) Carotid artery stenosis: (12) Coronary artery disease: (13) TIA (transient ischemic attack): (14) BPH (benign prostatic hyperplasia): (15) Depression: (16) Hyperlipidemia: (17) Dysphagia: PLAN: Plan 89 year old male with below past medical history hospitalized for SDH, SAH, multiple traumatic fractures, complicated by dysphagia requiring dobbhoff TF, admitted to TCU with debility, here for rehabilitation, strengthening, prior to discharge home with . Debility - PT/OT. Dysphagia - ST, advance diet as tolerated, if unable consider PEG, patient willing. Pain - Tylenol 650mg q6, Oxycodone 5mg q4 prn. Bowel - Miralax 17gm daily, Senokot 1 tablet qhs. Adult immunization - Administer pneumonia vaccine, covid vaccine, flu vaccine as appropriate. DVT prophylaxis - Lovenox 30mg sc bid. Hypertension - Metoprolol 25mg bid, Lisinopril 40mg daily, Amlodipine 5mg daily. Coronary artery disease - Metoprolol 25mg bid, Lisinopril 40mg daily, Aspirin 81mg daily. Vitamin D deficiency - D 125mcg daily. Vitamin B12 deficiency - B12 1000mcg daily. Inflammatory polyarthropathy - MTX 20mg qweek, Folic acid 2mg daily. Nutrition - Jevity 1.5 50ml/hour. GERD - Lansoprazole 30mg daily. Macular degeneration - Healthy Eyes 1 capsule daily. Nausea - Zofran odt 4mg q8 prn. Hyperlipidemia - Pravastatin 40mg qhs. BPH - Doxazosin 4mg qhs. The following psychotropic medication was present on admission: Elavil 10mg qhs. Psychotropic medication therapy is indicated for a diagnosis of: Insomnia. Based on my clinical evaluation, continuation of the medication is necessary at this time. Gradual dose reduction plan (select one): ____ GDR will be attempted. Will monitor patient symptoms and behaviors in response to GDR. __x__ GRD contraindicated. Reason contraindicated: stable chronic emt intermediate use. The following psychotropic medication was present on admission: Lexapro 5mg daily. Psychotropic medication therapy is indicated for a diagnosis of: Depression. Based on my clinical evaluation, continuation of the medication is necessary at this time. Gradual dose reduction plan (select one): ____ GDR will be attempted. Will monitor patient symptoms and behaviors in response to GDR. __x__ GRD contraindicated. Reason contraindicated: stable chronic snf use.
[2025-05-20] MEDS: Acetaminophen 650 MG/20 ML UDC GT (23:02)
[2025-05-21 05:48] LABS: Hematocrit 33.7 % (40-54); Hemoglobin 10.9 g/dL (13.0-16.5); Immature Granulocytes Count 0.270 X10^3/uL (0.0-0.0); Mean Corp Hgb Conc 32.3 g/dL (32-36); Mean Corpuscular Volume 102.4 fL (80-94); Mean Platelet Vol. 9.4 fl (6.2-12.0); NRBC Flagged by Analyzer 0 % (0-5); Platelet Count 442 K/mm3 (150-450); RBC Distribution Width CV 13.0 % (11.6-14.6); RBC Distribution Width SD 48.3 fl (35.1-43.9); Red Blood Count 3.29 M/mm3 (4.6-6.2); White Blood Count 12.5 K/mm3 (4.4-11.0)
[2025-05-21 06:23] LABS: Anion Gap 12 (5-15); BUN 31 mg/dL (4-19); BUN/Creat Ratio 41.0 RATIO (10-20); Calcium,Total 8.8 mg/dL (7.6-11.0); Carbon Dioxide 25.5 mmol/L (21.0-32.0); Chloride 102 mmol/L (98-108); Estimated Creatinine Clearance 56.19 ml/min (50-250); Glucose 133 mg/dL (70-99); Potassium 4.1 mmol/L (3.3-5.1)
[2025-05-21] MEDS: Acetaminophen 650 MG/20 ML UDC GT ×4 (06:32→23:03)
[2025-05-21] MEDS: Polyethylene Glycol 3350 17 GM PACKET GT (10:28)
[2025-05-21] MEDS: Multivitamin (Healthy Eyes) Capsule 1 CAP NG (10:29)
[2025-05-21 10:30] VITALS: BP 118/75; PULSE 84
[2025-05-21] MEDS: Cholecalciferol (Vit D3) 125 MCG CAPSULE (5,000 UNITS) GT (10:30)
--- NOTE | 2025-05-21 10:39 | NURSING ---
Dr. Wiggins updated on concerns of administering Lansoprazole down Mona and risk of plugging tube. Received order to discontinue Lansoprazole. Order read back.
[2025-05-21] MEDS: Glycerin/Hypromellose/PEG400 15 ml Bottle 2 DRP EACH EYE (11:32)
[2025-05-21] MEDS: Tuberculin,Purif.prot.deriv. 50 TU/ML Vial 0.1 ML ID (11:33)
--- NOTE | 2025-05-21 12:01 | NURSING ---
Physical Therapy Aide Note; Activity Asset: Peterson Tenorio prefers to be called Andres. He is independent in his choice of daily activities. He has a smartphone and tablet he uses for tv, games, FB and other media stuff. At this time he prefers to do independent activities in his room with his health issues. He welcomes visits from the degreaser and therapy dog when available. Staff will remind him of weekly activities and respect his right to say no.
--- NOTE | 2025-05-21 16:06 | CASEMGMT ---
Social Work SW phoned to complete initial assessment. Introduced self and role. Verified/updated contacts. Confirmed pt's wishes for his code status is a full code. Educated to Medicare benefit and copay coverage. SW inquired about DC goal. states the goal is for pt to return home, but depending on his needs. SW will continue to follow for DC planning. Alondra Rutherford PROGRAMMER ANALYST CONSULTANT FORMING ROLL OPERATOR
--- NOTE | 2025-05-21 18:15 | NURSING ---
Pt's concerned with pt being more confused, fuzzy, and unable to connect series of events. Pt A&O x3 but slow to respond to questions. Dr. Wiggins updated and received N.O. for CT of head without contrast, Chest x-ray, Urinalysis and Culture. Orders read back. CT Order faxed to CT.
--- NOTE | 2025-05-21 18:25 | RAD_ITS ---
PROCEDURE: CHEST PA AND LATERAL 05/21/2025 REASON FOR EXAM: INCREASED CONFUSION TECHNIQUE: CHEST PA AND LATERAL COMPARISON: None. FINDINGS: Devices: Partially imaged enteric tube traverses midline extending below the diaphragm into the upper abdomen, distal tip collimated from view. Lungs/Pleura: Clear. No pneumothorax or pleural effusion. Heart/Mediastinum: Normal in size. Aortic arch calcification. Bones/Soft tissues: Qualitative osteopenia. Degenerative changes of the spine and right shoulder. Grossly intact left shoulder total reverse arthroplasty hardware. RAD/Chest PA and Lateral IMPRESSION: No acute cardiopulmonary disease. Reading Location: [id number]
[2025-05-21] MEDS: Jevity 1.5 1,000 ML 50 ML GT (18:54)
[2025-05-21 19:09] LABS: Mucous, Urine 0 SEEN /hpf (<or=2+)
[2025-05-21 23:03] VITALS: PULSE 76
[2025-05-21] MEDS: Senna Tablet 1 TABLET NG (23:03)
[2025-05-21 23:30] LABS: Color, Urine Yellow (Yellow); Glucose, Dipstick Normal (Normal); Ketone-Dipstick Negative (Negative); Leukocyte Esterase-Dipstick Negative /ul (Negative); Nitrite-Dipstick Negative (Negative); Occult Blood-Urine Negative /ul (Negative); Protein-Dipstick 30 mg/dl (Negative); Specific Gravity, Urine 1.015 (1.002-1.030); Urine Bilirubin Dipstick Negative (Negative)
[2025-05-22 01:45] LABS: Red Blood Cells-Urine 0-5 SEEN /hpf (0-5); Squamous Epithelial Cells - UA 0-5 SEEN /hpf (0-5)
[2025-05-22] MEDS: Acetaminophen 650 MG/20 ML UDC GT ×3 (05:33→19:24)
[2025-05-22 10:24] VITALS: BP 110/52; PULSE 97; RESP 18; TEMP 36.5; O2SAT 90
[2025-05-22] MEDS: Multivitamin (Healthy Eyes) Capsule 1 CAP NG (10:30)
[2025-05-22 10:31] VITALS: PULSE 97
[2025-05-22] MEDS: Cholecalciferol (Vit D3) 125 MCG CAPSULE (5,000 UNITS) GT (10:32)
[2025-05-22] MEDS: Polyethylene Glycol 3350 17 GM PACKET GT (10:32)
--- NOTE | 2025-05-22 10:34 | WOUNDNOTE ---
wound photo: bilateral buttocks
--- NOTE | 2025-05-22 14:47 | CHAPLAIN ---
Type of Pastoral Visit ___ Initial Visit ___ Follow-up Visit ___ On-call Visit ___ General Patient Visit ___ Spiritual Assessment ___ Family Conference ___ Bereavement ___ Rapid Response ___ Code Blue ___ Other (describe below) Pastoral Care Referral From ___ Patient ___ Family ___ Nurse ___ Physician ___ Logging Tractor Operator Swamp ___ De Ionizer Operator ___ Other (describe below) Sacrament/Intervention ___ Active listening ___ Anointing ___ Amish ___ Bereavement ___ Communion ___ Sully exploration ___ ___ Life review ___ Prayer ___ Reconciliation ___ Sacrament of Sick ___ Supportive presence ___ Wedding ___ Other (describe below) Pastoral Comments patient was out of the room for therapy and then had visitors to see him; will try another day to visit
[2025-05-22] MEDS: Jevity 1.5 1,000 ML 50 ML GT (16:51)
[2025-05-22 21:37] VITALS: PULSE 80
[2025-05-23] MEDS: Acetaminophen 650 MG/20 ML UDC GT ×5 (00:52→22:33)
[2025-05-23 10:00] VITALS: PULSE 79; RESP 16; O2SAT 92
[2025-05-23 10:24] VITALS: PULSE 74
[2025-05-23] MEDS: Multivitamin (Healthy Eyes) Capsule 1 CAP NG (10:25)
[2025-05-23] MEDS: Polyethylene Glycol 3350 17 GM PACKET GT (10:26)
[2025-05-23] MEDS: Cholecalciferol (Vit D3) 125 MCG CAPSULE (5,000 UNITS) GT (10:27)
--- NOTE | 2025-05-23 15:17 | PCM.PN.DRR ---
Documented by User: Kimberlyn Reddy 05/23/25 16:40 TCU RX Drug Regimen Review Subjective/Objective Subjective/Objective Subjective: TCU Admission. 89 YOM found down after a fall. Hospitalized for SDH, SAH, multiple traumatic fractures, complicated by dysphagia requiring dobbhoff TF. Admitted to TCU with debility for strengthening and rehabilitation. Objective: Allergies No Known Allergies Allergy (Verified 05/20/25 19:39) Current Medications Generic Name Dose Route Start Last Admin Trade Name Janelle PRN Reason Stop Dose Admin Acetaminophen 650 mg 05/21/25 00:00 05/23/25 12:46 Acetaminophen 650 Mg/20 Ml Udc GT 650 mg Q6 KIKA Administration Amitriptyline HCl 10 mg 05/20/25 22:00 05/22/25 21:38 Amitriptyline 10 Mg Tablet NG 10 mg QHS KIKA Administration Amlodipine Besylate 5 mg 05/21/25 10:00 05/23/25 10:26 Amlodipine 5 Mg Tablet NG 5 mg DAILY KIKA Administration Protocol Aspirin 81 mg 05/21/25 10:00 05/23/25 10:24 Aspirin 81 Mg Tab.Chew GT 81 mg DAILY KIKA Administration Calamine/Phenol 1 applic 05/20/25 22:30 05/23/25 10:31 Menthol/Lanolin/Calamine/Znox 113 Gm Tube TOPICAL 1 applic BID KIKA Administration Protocol Cholecalciferol 125 mcg 05/21/25 10:00 05/23/25 10:27 Cholecalciferol (Vit D3) 125 Mcg Capsule (5,000 Units) GT 125 mcg DAILY KIKA Administration Cyanocobalamin 1,000 mcg 05/21/25 10:00 05/23/25 10:26 Cyanocobalamin 500 Mcg Tablet GT 1,000 mcg DAILY KIKA Administration Doxazosin Mesylate 4 mg 05/20/25 22:00 05/22/25 21:38 Doxazosin 4 Mg Tablet NG 4 mg QHS KIKA Administration Protocol Enoxaparin Sodium 30 mg 05/21/25 10:00 05/23/25 11:13 Enoxaparin 30 Mg/0.3 Ml Syringe SC 30 mg BID KIKA Administration Escitalopram Oxalate 5 mg 05/21/25 10:00 05/23/25 10:25 Escitalopram Oxalate 10 Mg Tablet GT 5 mg DAILY KIKA Administration Folic Acid 2 mg 05/21/25 10:00 05/23/25 10:25 Folic Acid 1 Mg Tablet GT 2 mg DAILY KIKA Administration Glycerin/Hypromellose/Polyethylene 2 drp 05/21/25 07:32 05/21/25 11:32 Glycerin/Hypromellose/Hre585 15 Ml Bottle EACH EYE 2 drp Q1H PRN Administration DRY EYES Enteral Nutritional Formula 1,000 mls @ 50 mls/hr 05/20/25 21:00 05/22/25 16:51 Jevity 1.5 GT 50 mls/hr .Q20H KIKA Administration Lisinopril 40 mg 05/21/25 10:00 05/23/25 10:27 Lisinopril 40 Mg Tablet GT 40 mg DAILY KIKA Administration Methotrexate 20 mg 05/24/25 10:00 Methotrexate 2.5 Mg Tablet GT Q7D KIKA Metoprolol Tartrate 25 mg 05/20/25 22:00 05/23/25 10:24 Metoprolol Tartrate 25 Mg Tablet NG 25 mg BID KIKA Administration Protocol Multivitamins/Minerals 1 cap 05/21/25 10:00 05/23/25 10:25 Multivitamin (Healthy Eyes) Capsule NG 1 cap DAILY KIKA Administration Ondansetron HCl 4 mg 05/20/25 19:51 Ondansetron Odt 4 Mg Tablet GT Q8H PRN NAUSEA/VOMITING Oxycodone HCl 5 mg 05/20/25 18:39 Oxycodone 5 Mg Tablet NG Q4H PRN PAIN 7-10 Polyethylene Glycol 17 gm 05/21/25 10:00 05/23/25 10:26 Polyethylene Glycol 3350 17 Gm Packet GT 17 gm DAILY KIKA Administration Pravastatin Sodium 40 mg 05/20/25 22:00 05/22/25 21:37 Pravastatin 40 Mg Tablet NG 40 mg QHS KIKA Administration Senna 1 tablet 05/20/25 22:00 05/22/25 21:05 Senna Tablet NG Not Given QHS [facility] Tuberculin PPD 0.1 ml 05/28/25 10:00 Tuberculin,Purif.Prot.Deriv. 50 Tu/Ml Vial ID 05/28/25 10:01 X1 ONE Problem List (Updated 05/20/25 @ 21:[address] Jesus Alberto Wiggins MD) Dysphagia (Acute) Hyperlipidemia (Acute) Depression (Acute) BPH (benign prostatic hyperplasia) (Acute) TIA (transient ischemic attack) (Acute) Coronary artery disease (Acute) Carotid artery stenosis (Acute) Osteoarthritis (Acute) Essential (primary) hypertension (Acute) GERD (gastroesophageal reflux disease) (Acute) Sacral fracture (Acute) Bilateral pubic rami fractures (Acute) SAH (subarachnoid hemorrhage) (Acute) SDH (subdural hematoma) (Acute) Orbital roof fracture (Acute) Orbital floor fracture (Acute) Debility (Acute) Vital Signs Temp Pulse Resp BP Pulse Ox O2 Del Method O2 Flow Rate 97.7 F L 74 18 110/52 L 90 Room Air 2 05/22/25 10:24 05/23/25 10:24 05/22/25 10:24 05/22/25 10:24 05/22/25 10:24 05/23/25 12:35 05/21/25 12:18 Oxygen Flow Rate (L/min) 2 Oxygen Delivery Method Room Air Weight: 63.458 kg Body Mass Index (BMI) 22.6 Sodium 139 mmol/L (133-145) 05/21/25 05:17 Potassium 4.1 mmol/L (3.3-5.1) 05/21/25 05:17 Chloride 102 mmol/L (98-108) 05/21/25 05:17 Carbon Dioxide 25.5 mmol/L (21.0-32.0) 05/21/25 05:17 Anion Gap 12 (5-15) 05/21/25 05:17 BUN 31 mg/dL (4-19) H 05/21/25 05:17 Creatinine 0.77 mg/dL (0.70-1.20) 05/21/25 05:17 Est GFR (MDRD) Non-Af 86 (>60) 05/21/25 05:17 BUN/Creatinine Ratio 41.0 RATIO (10-20) H 05/21/25 05:17 Glucose 133 mg/dL (70-99) H 05/21/25 05:17 Assessment/Plan: 1. Pain: acetaminophen liquid 650mg GT Q6 and oxycodone 5mg GT Q4H PRN pain 7-10. No PRN doses given. Please continue to monitor for increased pain and PRN usage. 2. Bowel: Miralax 17gm GT daily and senna 1T GT QHS. Please continue to monitor for constipation, diarrhea. Last documented bowel movement was 05/22/25. 3. DVT prophylaxis: enoxaparin 30mg SC BID. Please continue to monitor for S/S of bleeding/DVT, hemoglobin (Hgb 10.9g/dL), platelets (last 442,000) and renal function. 4. Hypertension/CAD: metoprolol tartrate 25mg GT BID, lisinopril 40mg GT daily, amlodipine 5mg GT daily, aspirin 81mg GT daily. Please continue to monitor BP (110/52-142/91), HR (74-101), renal function, potassium (last 4.1mmol/L), cough, swelling, S/S of bleeding, hemoglobin. 5. Hyperlipidemia: pravastatin 40mg GT QHS. Please consider ordering a lipid panel as there is no panel in the chart, if clinically appropriate. Thanks. Please continue to monitor for muscle pain. 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 Please consider ordering LFTs as this medication can cause hepatotoxicity (black box warning). Thanks. Please continue to monitor for rash, platelets (last 442,000), CBC, GI symptoms. 7. GERD: lansoprazole 30mg GT daily. Please continue to monitor for S/S of GERD and diarrhea (MARIELs). 8. BPH: doxazosin 4mg GT QHS. Please continue to monitor for S/S of BPH and BP. 9. Nausea: ondansetron ODT 4mg GT Q8H PRN nausea/vomiting. No PRN doses have been given. Please continue to monitor for nausea, vomiting and PRN usage. 10. Vitamin D/B12 deficiencies: cholecalciferol 125mcg GT daily and cyanocobalamin 1000mcg GT daily. Please consider ordering vitamin B12 and D levels as there are no levels in the chart. Thanks. 11. Macular degeneration: healthy eyes 1T GT daily. Please continue to monitor. 12. Dry eyes: artificial tears 2gtt OU Q1H PRN dry eyes. Resident has had 1 dose. Please continue to monitor for dry eyes and PRN usage. Assessment/Plan for indications treated with psychotropic medications: 1. Insomnia: amitriptyline 10mg GT QHS. Please see physician note regarding GDR. Please continue to monitor sodium (last 139mmol/L), suicidal ideation (black box warning), dementia/delirium (MARIELs) and anticholinergic side effects (BEERs, pt has artificial tears for dry eyes) and excessive daytime drowsiness. Monitor for efficacy including resident symptoms, behaviors and indications of distress. Monitor for tolerability including mental status, cognition, excessive sleepiness, withdrawal or decreased participation in activities and decline in physical functioning. Maximize use of nonpharmacologic/behavioral interventions to facilitate dose reduction or discontinuation as appropriate. Please evaluate the appropriateness of GDR unless contraindicated. If appropriate, GDR should be attempted in 2 separate quarters within the first year of use or admission to TCU. If GDR attempted, monitor resident symptoms/behaviors. 2. Depression: escitalopram 5mg GT daily. Please see physician note regarding GDR. Monitor for diarrhea, nausea, headache, anxiety or drowsiness, suicidal thoughts or behaviors (Boxed Warning), symptoms of bleeding, symptoms of serotonin syndrome (including agitation, confusion, hyperreflexia, rigidity/myoclonus, tremor, tachycardia, tachypnea), sodium levels (last Na = 139mmol/L). Monitor for efficacy including resident symptoms, behaviors and indications of distress. Monitor for tolerability including mental status, cognition, excessive sleepiness, withdrawal or decreased participation in activities and decline in physical functioning. Maximize use of nonpharmacologic/behavioral interventions to facilitate dose reduction or discontinuation as appropriate. Please evaluate the appropriateness of GDR unless contraindicated. If appropriate, GDR should be attempted in 2 separate quarters within the first year of use or admission to TCU. If GDR attempted, monitor resident symptoms/behaviors. Medical chart and medication regimen reviewed. The following medication irregularities or issues were identified: 1. Pravastatin 40mg GT QHS. Please consider ordering a lipid panel as there is no panel in the chart, if clinically appropriate. Thanks. 2. Methotrexate 20mg GT weekly. Please consider ordering LFTs as this medication can cause hepatotoxicity (black box warning). Thanks. 3. Cholecalciferol 125mcg GT daily and cyanocobalamin 1000mcg GT daily. Please consider ordering vitamin B12 and D levels as there are no levels in the chart. Thanks. Date Date of Note: 05/23/25 Documented by User: Dr. Jesus Alberto Wiggins MD 05/23/25 17:05 TCU RX Drug Regimen Review Provider Comments Provider responsibility Provider Comments to Recommendations by Pharmacy Agree
[2025-05-23 16:00] VITALS: BP 111/55; PULSE 90; RESP 18; TEMP 36.6; O2SAT 95
[2025-05-23] MEDS: Jevity 1.5 1,000 ML 50 ML GT (16:19)
--- NOTE | 2025-05-23 19:31 | NURSING ---
secure text received from dr. davis to ask patient about getting a PEG tube. Spoke with patient and today and both are agreeable and would like to move forward with PEG tube.
[2025-05-23 22:23] VITALS: BP 123/59; PULSE 80
[2025-05-23 22:26] VITALS: PULSE 80
[2025-05-24] MEDS: Acetaminophen 650 MG/20 ML UDC GT ×2 (06:19→19:35)
[2025-05-24 08:09] LABS: AST(SGOT) 23 U/L (<=37); Alanine Aminotransfer ALT/SGPT 29 U/L (<=46); Albumin, Serum 3.0 g/dL (3.4-4.8); Alkaline Phosphatase 147 U/L (40-129); Anion Gap 13 (5-15); BUN 39 mg/dL (4-19); BUN/Creat Ratio 50.2 RATIO (10-20); Calcium,Total 8.3 mg/dL (7.6-11.0); Carbon Dioxide 23.0 mmol/L (21.0-32.0); Chloride 96 mmol/L (98-108); Cholesterol 110 mg/dL (<=200); Estimated Creatinine Clearance 56.19 ml/min (50-250); Globulin 2.3 g/dL (2.2-4.2); Glucose 136 mg/dL (70-99); Low Density Lipoprotein Calc. 62 mg/dL; Potassium 3.8 mmol/L (3.3-5.1); Triglycerides 65 mg/dL; Very Low Density Lipoprotein 13 mg/dL (5-40); Vitamin B12 649 pg/mL (180-914); Vitamin D,25 Hydroxy 20.3 ng/mL (30-100); cholesterol:hdl ratio screen 3.13
--- NOTE | 2025-05-24 14:26 | RAD_ITS ---
PROCEDURE: ABDOMEN SINGLE VIEW 05/24/2025 REASON FOR EXAM: NASOGASTRIC TUBE TECHNIQUE: ABDOMEN SINGLE VIEW COMPARISON: Chest radiograph 05/21/2025 FINDINGS: An NG tube is seen in the stomach. The tip is near the body/ antrum region. Bowel gas: Gas distended loops of bowel are present. Calcifications: None detected Bones: Lumbar spine scoliosis Other: RAD/Abdomen Single View IMPRESSION: Tip of NG tube in satisfactory position. Reading Location: [facility]
[2025-05-24 16:00] VITALS: BP 113/52; PULSE 86; RESP 18; TEMP 36.8; O2SAT 91
[2025-05-24] MEDS: Cholecalciferol (Vit D3) 125 MCG CAPSULE (5,000 UNITS) GT (18:33)
[2025-05-24] MEDS: Multivitamin (Healthy Eyes) Capsule 1 CAP NG (18:34)
[2025-05-24] MEDS: Jevity 1.5 1,000 ML 50 ML GT (19:06)
[2025-05-24] MEDS: Senna Tablet 1 TABLET NG (21:49)
[2025-05-24 21:52] VITALS: BP 126/58; PULSE 89
[2025-05-25] MEDS: Acetaminophen 650 MG/20 ML UDC GT ×4 (00:21→17:44)
--- NOTE | 2025-05-25 04:06 | NURSING ---
Order placed for PEG tube placement. Dr. Ferrara notified.
[2025-05-25] MEDS: Dext 5%-0.45% NS 1,000 ML 75 ML IV (08:19)
--- NOTE | 2025-05-25 08:23 | NURSING ---
CALLED AND UPDATED HER ON NEW ORDERS AND PEG TUBE PLACEMENT.
[2025-05-25 10:22] VITALS: BP 120/62; PULSE 78; RESP 18; TEMP 36.7; O2SAT 98
[2025-05-25 11:24] VITALS: BP 120/62; PULSE 78
--- NOTE | 2025-05-25 13:08 | NURSING ---
THIS NURSE ASKED TO ROOM BY AID. PT IS BLEEDING FROM HIS PENIS,MINIMAL AMOUNT. PT IS ON BLOOD THINNER. NOTE LEFT FOR . RN AWARE
--- NOTE | 2025-05-25 14:34 | NURSING ---
PT WILL HAVE PEG TUBE PLACED ON 05/26/25 AT 7AM BY . PT IS TO BE NPO AT MIDNIGHT. PER AT THAT TIME START THE DEXTROSE/NS BACK UP AT 75ML/HR. FAMILY AND PT UPDATED. RN AWARE
[2025-05-25 22:00] VITALS: PULSE 88; RESP 15; O2SAT 91
[2025-05-25 22:21] VITALS: BP 113/55; PULSE 88; O2SAT 91
[2025-05-25 22:25] VITALS: BP 113/55; PULSE 88
[2025-05-25] MEDS: Senna Tablet 1 TABLET NG (22:25)
[2025-05-26] VITALS (10 sets, daily range): BP systolic 96–119; BP diastolic 57–64; PULSE 75–85; RESP 16–20; TEMP 36.8; O2SAT 94–98
[2025-05-26] MEDS: Acetaminophen 650 MG/20 ML UDC GT ×5 (00:03→23:43)
[2025-05-26] MEDS: 0.9% Saline Lock 10 ML Syringe IV ×4 (05:33→23:43)
--- NOTE | 2025-05-26 05:59 | NURSING ---
Pt left unit for peg tube procedure.
--- NOTE | 2025-05-26 10:14 | NURSING ---
Received phone call from pt returned from receiving PEG tube Placement Per Scottie RN pt O2 dropped and pt put on 10L NC pt recovered and has been on 2-4 L NC Rhonchi noted throughout pt coughing and had to be suctioned during SX. Dr. Wiggins was notified and Came to Floor and gave order for CBC w/diff, BMP,BNP, D-Dimer, Chest X-ray, Covid 19, Flu, RSV,and Respiratory panel. Pt placed in Enhanced Barrier precautions pending Covid 19 test.Order read back. Pt's Family in room and updated.
--- NOTE | 2025-05-26 10:20 | RAD_ITS ---
PROCEDURE: CHEST PA AND LATERAL 05/26/2025 REASON FOR EXAM: CONGESTION, COUGH, SOB TECHNIQUE: CHEST PA AND LATERAL COMPARISON: Prior study dated May 21, 2025. FINDINGS: Hardware: The patient is status post left reverse shoulder replacement. Heart: The heart size is normal. Mediastinum: The mediastinal contour is unremarkable. Lungs: The lungs are clear. Blunting of the posterior costophrenic angles. Bones: Degenerative changes are identified within the thoracic spine. Osteoarthritis of the right glenohumeral joint. RAD/Chest PA and Lateral IMPRESSION: No acute infiltrate is seen. Blunting of the posterior costophrenic angles bilaterally. Reading Location: [facility]
[2025-05-26 10:24] LABS: Hematocrit 29.1 % (40-54); Hemoglobin 9.7 g/dL (13.0-16.5); Immature Granulocytes Count 0.170 X10^3/uL (0.0-0.0); Mean Corp Hgb Conc 33.3 g/dL (32-36); Mean Corpuscular Volume 98.0 fL (80-94); Mean Platelet Vol. 9.2 fl (6.2-12.0); NRBC Flagged by Analyzer 0 % (0-5); Platelet Count 489 K/mm3 (150-450); RBC Distribution Width CV 12.5 % (11.6-14.6); RBC Distribution Width SD 44.6 fl (35.1-43.9); Red Blood Count 2.97 M/mm3 (4.6-6.2); White Blood Count 17.7 K/mm3 (4.4-11.0)
--- NOTE | 2025-05-26 10:41 | NURSING ---
Dr. Ferrara messaged regarding PEG tube. Per Dr. Ferrara Okay to use PEG.
[2025-05-26 10:46] LABS: D-Dimer Quantitative (DVT/PE) 5.68 FEU/ug/m (0.27-0.49)
[2025-05-26 10:50] LABS: Pro- Brain NATRIURETIC PEPTIDE 259 pg/mL (<=1800)
[2025-05-26 10:51] LABS: Anion Gap 9 (5-15); BUN 20 mg/dL (4-19); BUN/Creat Ratio 32.3 RATIO (10-20); Calcium,Total 8.1 mg/dL (7.6-11.0); Carbon Dioxide 24.2 mmol/L (21.0-32.0); Chloride 97 mmol/L (98-108); Estimated Creatinine Clearance 56.19 ml/min (50-250); Glucose 122 mg/dL (70-99); Potassium 3.6 mmol/L (3.3-5.1)
[2025-05-26] MEDS: Multivitamin (Healthy Eyes) Capsule 1 CAP NG (11:50)
[2025-05-26] MEDS: Cholecalciferol (Vit D3) 125 MCG CAPSULE (5,000 UNITS) GT (11:51)
[2025-05-26] MEDS: Polyethylene Glycol 3350 17 GM PACKET GT (11:51)
[2025-05-26] MEDS: levoFLOXacin IV 500 MG/100 ML BAG 100 MG IV (12:03)
[2025-05-26] MEDS: Furosemide 20 MG/2 ML VIAL IV (12:03)
[2025-05-26] MEDS: MethylPREDNISolone DosePak 4 MG BOX PO ×3 (12:28→22:19)
[2025-05-26] MEDS: Jevity 1.5 1,000 ML 50 ML GT (12:41)
--- NOTE | 2025-05-26 13:15 | NURSING ---
Dr. Wiggins notified of CTA results No New orders at this time.
--- NOTE | 2025-05-26 14:21 | CPS ---
decreased pt to 2 NC at this time
--- NOTE | 2025-05-26 14:37 | CHAPLAIN ---
Type of Pastoral Visit _x__ Initial Visit ___ Follow-up Visit ___ On-call Visit ___ General Patient Visit ___ Spiritual Assessment ___ Family Conference ___ Bereavement ___ Rapid Response ___ Code Blue ___ Other (describe below) Pastoral Care Referral From _x__ Patient _x__ Family ___ Nurse ___ Physician ___ Dough Scaler And Mixer ___ Banquet Coordinator ___ Other (describe below) Sacrament/Intervention _x__ Active listening ___ Anointing ___ Jewish ___ Bereavement ___ Communion ___ Sully exploration ___ _x__ Life review _x__ Prayer ___ Reconciliation ___ Sacrament of Sick _x__ Supportive presence ___ Wedding ___ Other (describe below) Pastoral Comments patient had a surgical procedure done earlier today and 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
--- NOTE | 2025-05-26 14:42 | WOUNDNOTE ---
wound photo: bilateral buttocks
[2025-05-26] MEDS: Ampicillin/Sulbactam 3 GM in 0.9% Normal Saline (100mL MB+) 100 ML IV ×2 (18:02→23:44)
--- NOTE | 2025-05-26 18:27 | NURSING ---
Residual checked at this time 0ml noted pt tolerating tube feed.
[2025-05-26] MEDS: 0.9% Normal Saline (250mL Bag) 250 ML 15 ML IV (19:03)
[2025-05-26] MEDS: Senna Tablet 1 TABLET NG (22:20)
[2025-05-27] VITALS (8 sets, daily range): BP systolic 140; BP diastolic 63; PULSE 80–90; RESP 12–18; TEMP 36.7; O2SAT 94–96
[2025-05-27] MEDS: Acetaminophen 650 MG/20 ML UDC GT ×3 (06:28→18:16)
[2025-05-27] MEDS: Ampicillin/Sulbactam 3 GM in 0.9% Normal Saline (100mL MB+) 100 ML IV ×3 (06:32→18:19)
[2025-05-27] MEDS: 0.9% Saline Lock 10 ML Syringe IV ×3 (06:33→18:27)
--- NOTE | 2025-05-27 08:15 | RAD_ITS ---
PROCEDURE: CHEST PA AND LATERAL 05/27/2025 REASON FOR EXAM: ASPIRATION PNEUMONIA. TECHNIQUE: CHEST PA AND LATERAL COMPARISON: AP chest of 05/26/2025 RAD/Chest PA and Lateral IMPRESSION: PNEUMOPERITONEUM is present. No evidence of pulmonary edema. No focal infiltrate is seen. A small right pleural effusion is noted. No left pleural effusion is seen. No pneumothorax is evident. Cardiomediastinal silhouette is stable, without evidence of cardiomegaly. No interval osseous changes noted. Reading Location: [place] [id number]
--- NOTE | 2025-05-27 08:38 | NURSING ---
Scrap Separator Note; MDS for 05/27/2025 Complete
[2025-05-27] MEDS: MethylPREDNISolone DosePak 4 MG BOX PO ×4 (10:10→22:34)
[2025-05-27] MEDS: Multivitamin (Healthy Eyes) Capsule 1 CAP NG (10:28)
[2025-05-27] MEDS: Cholecalciferol (Vit D3) 125 MCG CAPSULE (5,000 UNITS) GT (10:32)
[2025-05-27] MEDS: levoFLOXacin IV 500 MG/100 ML BAG 100 MG IV (10:52)
--- NOTE | 2025-05-27 11:00 | NURSING ---
PEG PLACEMENT VERIFIED,0 RESIDUAL. PT TOLERATED MEDS WELL. MOUTH CARE GIVEN. PEG SITE CLEANED AND NEW DRESSING. NO S/S OF INFECTION,MINIMAL BLOODY DRAINAGE.
[2025-05-27] MEDS: Jevity 1.5 1,000 ML 50 ML GT (11:28)
--- NOTE | 2025-05-27 13:49 | CASEMGMT ---
Social Work IDT met with patient, and dtr for care plan meeting. Discussed patient's progress in PT/OT/ST/SN/RDN. Educated to Medicare benefit. Provided pt/family with written communication of insurance process and copay coverage during stay. Pt has new peg placed, swallowing is very compromised. Pt dx with aspiration PNA as of this date and started on IV ATB. Pt also has moderate impairment with cognition at this time. CUT OUT STITCHER will continue working with pt. SW explained once pt plateaus and no longer meets Medicare criteria, SW will communicate with pt and family and assist with DC planning. did offer that pt has a LTC insurance policy that can be used at another facility, if needed. SW will continue to follow. Alondra Rutherford ASIC VERIFICATION ENGINEER STONE CUTTER
--- NOTE | 2025-05-27 14:09 | CASEMGMT ---
Social Work SW completed BIMS () and PHQ-2 () for MDS assessment. Alondra Rutherford FILM AND VIDEO EDITOR VAPOR COATER
--- NOTE | 2025-05-27 14:40 | NURSING ---
NOTIFIED THIS NURSE THAT SHE CANCELED PT APPOINTMENT WITH THE ENT IN [place] ON 05/29/25. STATED SHE WILL LET STAFF KNOW IF SHE SCHEDULES ANY THING. RN AWARE
--- NOTE | 2025-05-27 15:51 | NURSING ---
PT IV SITES CONTINUE TO GO BAD. PT RECEIVES ANTIBIOTICS. NOTIFIED . OK PER FOR PT TO GET A PICC LINE. RN AND PT AWARE. NEW ORDER IN.
--- NOTE | 2025-05-27 16:00 | NURSING ---
Picc line order placed, pt has poor venous access on x2 IV ATB's for pneumonia. [facility] notified via website. awaiting return call.
--- NOTE | 2025-05-27 16:35 | NURSING ---
[facility] ETA 5:15 pm
--- NOTE | 2025-05-27 17:26 | NURSING ---
PT HAS RED/RAISED/ ITCHY RASH ON BACK AND STILL HAS SUTURES IN FOREHEAD FROM 05/10/25. NOTIFIED,NEW ORDER FOR HYDROCORTISONE CREAM AND TO REMOVE SUTURES.RN AWARE
--- NOTE | 2025-05-27 18:04 | NURSING ---
STRUCTURAL METAL WORKER IN TO PUT PICC LINE IN.SINGLE PICC LINE IN RT UPPER ARM,43 CM LONG WITH 1CM OUT,. OK TO USE PER RN.
--- NOTE | 2025-05-27 18:35 | NURSING ---
CALLED PT AND UPDATED HER ON THE NEW PICC LINE.
[2025-05-27] MEDS: Senna Tablet 1 TABLET NG (22:34)
[2025-05-28] MEDS: Acetaminophen 650 MG/20 ML UDC GT ×5 (00:24→23:15)
[2025-05-28] MEDS: Ampicillin/Sulbactam 3 GM in 0.9% Normal Saline (100mL MB+) 100 ML IV ×5 (00:25→23:26)
[2025-05-28] MEDS: 0.9% Saline Lock 10 ML Syringe IV ×3 (00:26→18:07)
[2025-05-28 04:40] VITALS: O2SAT 96
--- NOTE | 2025-05-28 05:54 | NURSING ---
CLEANSED HEALED LACERATION ON RT EYEBROW, REMOVED SUTURES, NO S/S OF INFECTION, LACERATION LEFT OPEN TO AIR
[2025-05-28 06:00] LABS: Hematocrit 29.0 % (40-54); Hemoglobin 9.6 g/dL (13.0-16.5); Immature Granulocytes Count 0.170 X10^3/uL (0.0-0.0); Mean Corp Hgb Conc 33.1 g/dL (32-36); Mean Corpuscular Volume 98.3 fL (80-94); Mean Platelet Vol. 9.3 fl (6.2-12.0); NRBC Flagged by Analyzer 0 % (0-5); POSITIVE DIFFERENTIAL YES; Platelet Count 550 K/mm3 (150-450); RBC Distribution Width CV 12.6 % (11.6-14.6); RBC Distribution Width SD 44.9 fl (35.1-43.9); Red Blood Count 2.95 M/mm3 (4.6-6.2); White Blood Count 17.1 K/mm3 (4.4-11.0)
[2025-05-28 06:21] LABS: Anion Gap 11 (5-15); BUN 22 mg/dL (4-19); BUN/Creat Ratio 33.6 RATIO (10-20); Calcium,Total 8.2 mg/dL (7.6-11.0); Carbon Dioxide 23.9 mmol/L (21.0-32.0); Chloride 101 mmol/L (98-108); Estimated Creatinine Clearance 56.19 ml/min (50-250); Glucose 146 mg/dL (70-99); Potassium 4.1 mmol/L (3.3-5.1)
[2025-05-28 07:42] VITALS: PULSE 81; RESP 18; O2SAT 98
[2025-05-28] MEDS: Multivitamin (Healthy Eyes) Capsule 1 CAP NG (10:12)
[2025-05-28 10:13] VITALS: PULSE 92
[2025-05-28] MEDS: MethylPREDNISolone DosePak 4 MG BOX PO ×4 (10:13→23:12)
[2025-05-28] MEDS: Cholecalciferol (Vit D3) 125 MCG CAPSULE (5,000 UNITS) GT (10:15)
[2025-05-28] MEDS: levoFLOXacin IV 500 MG/100 ML BAG 100 MG IV (10:51)
[2025-05-28 10:59] VITALS: BP 116/59; PULSE 92; RESP 16; TEMP 36.3; O2SAT 92
[2025-05-28] MEDS: Jevity 1.5 1,000 ML 50 ML GT (11:52)
[2025-05-28] MEDS: Tuberculin,Purif.prot.deriv. 50 TU/ML Vial 0.1 ML ID (13:10)
[2025-05-28 19:36] VITALS: PULSE 92; RESP 16
[2025-05-28 23:13] VITALS: PULSE 89
[2025-05-29] VITALS (7 sets, daily range): BP systolic 101–117; BP diastolic 57; PULSE 83–100; RESP 16–18; TEMP 36.7; O2SAT 94–95
[2025-05-29] MEDS: Ampicillin/Sulbactam 3 GM in 0.9% Normal Saline (100mL MB+) 100 ML IV ×3 (05:32→17:19)
[2025-05-29] MEDS: Acetaminophen 650 MG/20 ML UDC GT ×3 (05:39→17:23)
[2025-05-29] MEDS: MethylPREDNISolone DosePak 4 MG BOX PO ×3 (10:08→21:33)
[2025-05-29] MEDS: Cholecalciferol (Vit D3) 125 MCG CAPSULE (5,000 UNITS) GT (10:09)
[2025-05-29] MEDS: Multivitamin (Healthy Eyes) Capsule 1 CAP NG (10:10)
[2025-05-29] MEDS: Jevity 1.5 1,000 ML 50 ML GT (10:11)
[2025-05-29] MEDS: levoFLOXacin IV 500 MG/100 ML BAG 100 MG IV (10:12)
[2025-05-29] MEDS: 0.9% Saline Lock 10 ML Syringe IV (17:19)
[2025-05-30] VITALS (7 sets, daily range): BP systolic 113–124; BP diastolic 57–61; PULSE 74–94; RESP 16–18; TEMP 36.9; O2SAT 92–93
[2025-05-30] MEDS: Acetaminophen 650 MG/20 ML UDC GT ×4 (00:01→17:22)
[2025-05-30] MEDS: Ampicillin/Sulbactam 3 GM in 0.9% Normal Saline (100mL MB+) 100 ML IV ×4 (00:01→17:50)
[2025-05-30] MEDS: 0.9% Saline Lock 10 ML Syringe IV ×4 (00:08→21:42)
[2025-05-30] MEDS: Jevity 1.5 1,000 ML 50 ML GT (06:28)
[2025-05-30] MEDS: MethylPREDNISolone DosePak 4 MG BOX PO ×2 (10:03→21:24)
[2025-05-30] MEDS: Multivitamin (Healthy Eyes) Capsule 1 CAP NG (10:04)
[2025-05-30] MEDS: Cholecalciferol (Vit D3) 125 MCG CAPSULE (5,000 UNITS) GT (10:07)
[2025-05-30] MEDS: levoFLOXacin IV 500 MG/100 ML BAG 100 MG IV (11:09)
--- NOTE | 2025-05-30 18:38 | NURSING ---
PEG TUBE PLACEMENT VERIFIED BY AIR BOLUS. 0 RESIDUAL FOR THE DAY. MOUTH CARE DONE. FLUSH AND GOOD BLOOD RETURN TO PICC IN UPPER RT ARM. PT TOLERATED ALL WELL TODAY.
[2025-05-31] MEDS: 0.9% Saline Lock 10 ML Syringe IV ×7 (00:19→23:40)
[2025-05-31] MEDS: Ampicillin/Sulbactam 3 GM in 0.9% Normal Saline (100mL MB+) 100 ML IV ×5 (00:20→23:40)
[2025-05-31] MEDS: Acetaminophen 650 MG/20 ML UDC GT ×5 (00:20→23:49)
[2025-05-31] MEDS: Jevity 1.5 1,000 ML 50 ML GT (06:44)
[2025-05-31 07:01] VITALS: PULSE 78; RESP 16; O2SAT 96
[2025-05-31] MEDS: Multivitamin (Healthy Eyes) Capsule 1 CAP NG (10:38)
[2025-05-31 10:40] VITALS: BP 145/71; PULSE 64
[2025-05-31] MEDS: Cholecalciferol (Vit D3) 125 MCG CAPSULE (5,000 UNITS) GT (10:41)
[2025-05-31 10:54] VITALS: BP 114/57; PULSE 75; RESP 18; TEMP 36.6; O2SAT 96
[2025-05-31] MEDS: levoFLOXacin IV 500 MG/100 ML BAG 100 MG IV (11:09)
[2025-05-31] MEDS: 0.9% Normal Saline (250mL Bag) 250 ML 15 ML IV (11:12)
[2025-05-31 13:05] VITALS: PULSE 73; RESP 16
--- NOTE | 2025-05-31 18:33 | NURSING ---
PEG PLACEMENT VERIFIED BY AIR BOLUS, 0 RESIDUAL TODAY. PT TOLERATED ALL WELL.
[2025-05-31 19:34] VITALS: PULSE 74; RESP 16
[2025-05-31 22:12] VITALS: PULSE 83
[2025-06-01] MEDS: 0.9% Saline Lock 10 ML Syringe IV ×5 (00:52→22:44)
[2025-06-01] MEDS: Jevity 1.5 1,000 ML 50 ML GT ×2 (04:04→22:42)
[2025-06-01] MEDS: Acetaminophen 650 MG/20 ML UDC GT ×4 (05:42→22:43)
[2025-06-01] MEDS: Ampicillin/Sulbactam 3 GM in 0.9% Normal Saline (100mL MB+) 100 ML IV ×4 (05:48→22:43)
[2025-06-01 06:40] VITALS: PULSE 78; RESP 16; O2SAT 92
[2025-06-01] MEDS: Multivitamin (Healthy Eyes) Capsule 1 CAP NG (07:55)
[2025-06-01] MEDS: Cholecalciferol (Vit D3) 125 MCG CAPSULE (5,000 UNITS) GT (07:55)
[2025-06-01 07:57] VITALS: PULSE 87
[2025-06-01] MEDS: levoFLOXacin IV 500 MG/100 ML BAG 100 MG IV (10:34)
[2025-06-01 13:16] VITALS: PULSE 79; RESP 20
[2025-06-01 16:00] VITALS: BP 98/50; PULSE 87; RESP 18; TEMP 36.8; O2SAT 91
[2025-06-01 19:50] VITALS: PULSE 87; RESP 18; O2SAT 97
[2025-06-01 22:40] VITALS: BP 97/49; PULSE 82
[2025-06-01] MEDS: 0.9% Normal Saline (250mL Bag) 250 ML 15 ML IV (22:44)
[2025-06-02] MEDS: Acetaminophen 650 MG/20 ML UDC GT ×4 (05:49→22:59)
[2025-06-02] MEDS: Ampicillin/Sulbactam 3 GM in 0.9% Normal Saline (100mL MB+) 100 ML IV ×3 (05:49→18:18)
[2025-06-02] MEDS: Jevity 1.5 1,000 ML 50 ML GT (05:50)
--- NOTE | 2025-06-02 09:31 | MDS.RN ---
Information for the MDS was obtained from review of the clinical record, interview of resident, staff, and direct observation of resident?s care.
[2025-06-02] MEDS: Multivitamin (Healthy Eyes) Capsule 1 CAP NG (10:03)
[2025-06-02 10:05] VITALS: PULSE 95
[2025-06-02] MEDS: Cholecalciferol (Vit D3) 125 MCG CAPSULE (5,000 UNITS) GT (10:05)
[2025-06-02] MEDS: 0.9% Saline Lock 10 ML Syringe IV ×2 (10:21→20:51)
[2025-06-02] MEDS: levoFLOXacin IV 500 MG/100 ML BAG 100 MG IV (10:27)
[2025-06-02 15:23] VITALS: BP 105/48; PULSE 95; RESP 18; TEMP 36.4; O2SAT 93
--- NOTE | 2025-06-02 16:32 | NURSING ---
new order for ray wraps to [place] lower extremities due to swelling.
[2025-06-02] MEDS: COVID VAC 24-25 (12UP)(MODERNA)/PF 50 MCG/0.5 ML SYRINGE IM (18:04)
[2025-06-02 20:39] VITALS: BP 112/53; PULSE 77
[2025-06-03] MEDS: Acetaminophen 650 MG/20 ML UDC GT ×3 (05:43→18:04)
[2025-06-03] MEDS: Jevity 1.5 1,000 ML 50 ML GT (05:43)
[2025-06-03 07:32] VITALS: PULSE 82; RESP 16
[2025-06-03] MEDS: Multivitamin (Healthy Eyes) Capsule 1 CAP NG (09:59)
[2025-06-03 10:00] VITALS: BP 106/57; PULSE 75; RESP 18; O2SAT 95
[2025-06-03] MEDS: Cholecalciferol (Vit D3) 125 MCG CAPSULE (5,000 UNITS) GT (10:01)
[2025-06-03] MEDS: Jevity 1.5. 1,000 ML Bottle 240 ML GT ×3 (10:28→18:04)
[2025-06-03 10:41] VITALS: BP 106/57; PULSE 75; RESP 18; TEMP 36.6; O2SAT 95
[2025-06-03 12:20] VITALS: PULSE 84; RESP 18
--- NOTE | 2025-06-03 14:01 | NURSING ---
CALLED AND UPDATED HER ON AND THE NEW ORDER FOR JEVITY WITH FLUSH. STATED THANK YOU.
[2025-06-03] MEDS: 0.9% Saline Lock 10 ML Syringe IV (18:04)
[2025-06-03 18:41] VITALS: PULSE 78; RESP 20
--- NOTE | 2025-06-03 19:39 | NURSING ---
PEG PLACEMENT VERIFIED BY AIR BOLUS, 0 RESIDUALS. PT TOLERATED TUBE FEEDINGS WELL. NO COMPLAINTS.
[2025-06-04] VITALS (7 sets, daily range): BP systolic 118–129; BP diastolic 60–61; PULSE 81–88; RESP 16–20; TEMP 36.7; O2SAT 92–94
[2025-06-04] MEDS: Jevity 1.5. 1,000 ML Bottle 240 ML GT ×5 (00:05→18:34)
[2025-06-04] MEDS: Senna Tablet 1 TABLET NG (00:06)
[2025-06-04] MEDS: Acetaminophen 650 MG/20 ML UDC GT ×5 (00:07→23:11)
[2025-06-04] MEDS: 0.9% Saline Lock 10 ML Syringe IV ×2 (00:08→11:02)
[2025-06-04 05:53] LABS: Hematocrit 28.5 % (40-54); Hemoglobin 9.3 g/dL (13.0-16.5); Immature Granulocytes Count 0.160 X10^3/uL (0.0-0.0); Mean Corp Hgb Conc 32.6 g/dL (32-36); Mean Corpuscular Volume 101.4 fL (80-94); Mean Platelet Vol. 8.8 fl (6.2-12.0); NRBC Flagged by Analyzer 0 % (0-5); Platelet Count 302 K/mm3 (150-450); RBC Distribution Width CV 14.4 % (11.6-14.6); RBC Distribution Width SD 52.4 fl (35.1-43.9); Red Blood Count 2.81 M/mm3 (4.6-6.2); White Blood Count 11.8 K/mm3 (4.4-11.0)
[2025-06-04 06:20] LABS: Anion Gap 9 (5-15); BUN 17 mg/dL (4-19); BUN/Creat Ratio 24.9 RATIO (10-20); Calcium,Total 8.0 mg/dL (7.6-11.0); Carbon Dioxide 22.9 mmol/L (21.0-32.0); Chloride 105 mmol/L (98-108); Estimated Creatinine Clearance 56.19 ml/min (50-250); Glucose 79 mg/dL (70-99); Potassium 4.3 mmol/L (3.3-5.1)
[2025-06-04] MEDS: Cholecalciferol (Vit D3) 125 MCG CAPSULE (5,000 UNITS) GT (10:49)
[2025-06-04] MEDS: Multivitamin (Healthy Eyes) Capsule 1 CAP NG (10:50)
--- NOTE | 2025-06-04 19:48 | NURSING ---
PEG PLACEMENT VERIFIED BY AIR BOLUS, O RESIDUALS. PT TOLERATED TUBE FEED WELL. PT WANTING TO TALK TO DIETARY ABOUT TUBE FEEDS.
[2025-06-05] MEDS: Jevity 1.5. 1,000 ML Bottle 240 ML GT ×5 (06:04→22:35)
[2025-06-05] MEDS: Acetaminophen 650 MG/20 ML UDC GT ×4 (06:04→22:36)
[2025-06-05 06:40] VITALS: PULSE 85; RESP 18
[2025-06-05 08:59] VITALS: BP 88/48; PULSE 84; RESP 18; TEMP 37.4; O2SAT 92
[2025-06-05 09:02] VITALS: BP 88/48; PULSE 84
[2025-06-05] MEDS: Multivitamin (Healthy Eyes) Capsule 1 CAP NG (09:05)
[2025-06-05] MEDS: Cholecalciferol (Vit D3) 125 MCG CAPSULE (5,000 UNITS) GT (09:06)
[2025-06-05] MEDS: 0.9% Saline Lock 10 ML Syringe IV (15:33)
[2025-06-05 22:19] VITALS: BP 125/59; PULSE 82
[2025-06-06] MEDS: Acetaminophen 650 MG/20 ML UDC GT ×4 (06:07→23:04)
[2025-06-06] MEDS: Jevity 1.5. 1,000 ML Bottle 240 ML GT ×5 (06:07→22:55)
[2025-06-06 09:12] VITALS: BP 127/60; PULSE 83; RESP 18; TEMP 37.1; O2SAT 97
[2025-06-06] MEDS: Cholecalciferol (Vit D3) 125 MCG CAPSULE (5,000 UNITS) GT (09:15)
[2025-06-06 09:16] VITALS: PULSE 83
[2025-06-06] MEDS: Multivitamin (Healthy Eyes) Capsule 1 CAP NG (09:16)
[2025-06-06 20:32] VITALS: BP 122/53; PULSE 88
[2025-06-07] MEDS: Acetaminophen 650 MG/20 ML UDC GT ×3 (05:46→17:32)
[2025-06-07] MEDS: Jevity 1.5. 1,000 ML Bottle 240 ML GT ×5 (05:47→21:52)
[2025-06-07] MEDS: Cholecalciferol (Vit D3) 125 MCG CAPSULE (5,000 UNITS) GT (09:43)
[2025-06-07] MEDS: Polyethylene Glycol 3350 17 GM PACKET GT (09:43)
[2025-06-07 09:44] VITALS: PULSE 85
[2025-06-07] MEDS: Multivitamin (Healthy Eyes) Capsule 1 CAP NG (09:45)
[2025-06-07 16:00] VITALS: BP 110/61; PULSE 81; RESP 18; TEMP 36.6; O2SAT 96
[2025-06-07 21:49] VITALS: BP 154/55; PULSE 78
[2025-06-08] MEDS: Acetaminophen 650 MG/20 ML UDC GT ×5 (00:27→22:15)
[2025-06-08] MEDS: Jevity 1.5. 1,000 ML Bottle 240 ML GT ×5 (05:48→22:10)
[2025-06-08] MEDS: Multivitamin (Healthy Eyes) Capsule 1 CAP NG (11:03)
[2025-06-08 11:04] VITALS: BP 103/56; PULSE 75
[2025-06-08] MEDS: Cholecalciferol (Vit D3) 125 MCG CAPSULE (5,000 UNITS) GT (11:05)
[2025-06-08] MEDS: 0.9% Saline Lock 10 ML Syringe IV (11:31)
[2025-06-08 11:36] VITALS: BP 103/56; PULSE 75; RESP 16; TEMP 36.8; O2SAT 93
--- NOTE | 2025-06-08 17:05 | RAD_ITS ---
PROCEDURE: ABDOMEN SINGLE VIEW 06/08/2025 REASON FOR EXAM: DIARRHEA TECHNIQUE: ABDOMEN SINGLE VIEW COMPARISON: 05/24/2025. FINDINGS: Percutaneous gastrostomy tube projects over the epigastric region. Nonspecific, nonobstructive bowel gas pattern. No discernible free air. No unusual calcific densities. Imaged lung bases are clear. Multilevel degenerative changes of the spine with mild lumbar levoscoliotic curvature. 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 Qualitative osteopenia. Prominent atherosclerotic vascular calcifications. RAD/Abdomen Single View IMPRESSION: No radiographically evident acute abnormality. Nonobstructive gas pattern. Reading Location: [id number]
--- NOTE | 2025-06-08 18:53 | NURSING ---
PEG PLACEMENT VERIFIED BY AIR BOLUS. 0 RESIDUAL TODAY. PEG SITE CLEANED AND NEW DRESSING TO SITE. PT TOLERATED ALL WELL.
[2025-06-08 22:10] VITALS: PULSE 77
[2025-06-09] MEDS: Acetaminophen 650 MG/20 ML UDC GT ×4 (05:44→21:41)
[2025-06-09] MEDS: Jevity 1.5. 1,000 ML Bottle 240 ML GT ×5 (05:55→21:47)
[2025-06-09] MEDS: Multivitamin (Healthy Eyes) Capsule 1 CAP NG (10:43)
[2025-06-09 10:44] VITALS: BP 110/55; PULSE 85
[2025-06-09] MEDS: Cholecalciferol (Vit D3) 125 MCG CAPSULE (5,000 UNITS) GT (10:45)
[2025-06-09 11:02] VITALS: BP 110/55; PULSE 85; RESP 18; TEMP 36.7; O2SAT 94
[2025-06-09 11:45] VITALS: PULSE 85; RESP 16; O2SAT 94
[2025-06-09] MEDS: 0.9% Saline Lock 10 ML Syringe IV (14:54)
--- NOTE | 2025-06-09 15:09 | WOUNDNOTE ---
wound photo: bilateral buttocks
[2025-06-09 15:48] VITALS: BMI 24.0
--- NOTE | 2025-06-09 16:43 | NURSING ---
UPDATED FAMILY ON KUB RESULTS AND NEW MED ORDER.
--- NOTE | 2025-06-09 18:42 | NURSING ---
PEG PLACEMENT VERIFIED BY AIR BOLUS, 0 RESIDUAL TODAY. MOUTH CARE GIVEN, PEG SITE CLEANED WITH NEW DRESSING. PT TOLERATED WELL.
[2025-06-09 21:44] VITALS: PULSE 80
[2025-06-10] MEDS: Jevity 1.5. 1,000 ML Bottle 240 ML GT ×5 (06:06→21:52)
[2025-06-10] MEDS: Acetaminophen 650 MG/20 ML UDC GT ×4 (06:06→23:16)
[2025-06-10 08:52] VITALS: BP 102/46; PULSE 89; RESP 17; TEMP 36.7; O2SAT 92
[2025-06-10] MEDS: Multivitamin (Healthy Eyes) Capsule 1 CAP NG (08:55)
[2025-06-10] MEDS: Cholecalciferol (Vit D3) 125 MCG CAPSULE (5,000 UNITS) GT (08:56)
[2025-06-10 10:00] VITALS: PULSE 89; RESP 17; O2SAT 92
[2025-06-10 10:32] VITALS: BP 102/55; PULSE 91; RESP 18; O2SAT 94
[2025-06-10 11:34] VITALS: BP 102/55; PULSE 91
--- NOTE | 2025-06-10 11:35 | NURSING ---
pt BP readings this AM 102/46 HR 89, 102/[address] Wiggins aware, hold AM dose of metoprolol, norvasc, lisinopril
[2025-06-10] MEDS: 0.9% Saline Lock 10 ML Syringe IV ×2 (15:44→22:07)
[2025-06-10 22:12] VITALS: BP 124/62; PULSE 83
[2025-06-11] MEDS: Acetaminophen 650 MG/20 ML UDC GT ×4 (05:29→23:22)
[2025-06-11] MEDS: Jevity 1.5. 1,000 ML Bottle 240 ML GT ×5 (05:29→23:20)
[2025-06-11 05:42] VITALS: PULSE 81; RESP 16; O2SAT 98
[2025-06-11 07:39] LABS: Hematocrit 29.9 % (40-54); Hemoglobin 9.7 g/dL (13.0-16.5); Immature Granulocytes Count 0.060 X10^3/uL (0.0-0.0); Mean Corp Hgb Conc 32.4 g/dL (32-36); Mean Corpuscular Volume 99.7 fL (80-94); Mean Platelet Vol. 8.9 fl (6.2-12.0); NRBC Flagged by Analyzer 0 % (0-5); Platelet Count 216 K/mm3 (150-450); RBC Distribution Width CV 14.7 % (11.6-14.6); RBC Distribution Width SD 53.9 fl (35.1-43.9); Red Blood Count 3.00 M/mm3 (4.6-6.2); White Blood Count 10.4 K/mm3 (4.4-11.0)
[2025-06-11 08:13] LABS: Anion Gap 10 (5-15); BUN 16 mg/dL (4-19); BUN/Creat Ratio 27.7 RATIO (10-20); Calcium,Total 8.4 mg/dL (7.6-11.0); Carbon Dioxide 24.1 mmol/L (21.0-32.0); Chloride 100 mmol/L (98-108); Estimated Creatinine Clearance 56.49 ml/min (50-250); Glucose 113 mg/dL (70-99); Potassium 4.5 mmol/L (3.3-5.1)
[2025-06-11 09:19] VITALS: BP 122/68; PULSE 87; RESP 17; TEMP 36.9; O2SAT 94
[2025-06-11 09:20] VITALS: PULSE 87
[2025-06-11] MEDS: Cholecalciferol (Vit D3) 125 MCG CAPSULE (5,000 UNITS) GT (09:23)
[2025-06-11] MEDS: Multivitamin (Healthy Eyes) Capsule 1 CAP GT (09:25)
[2025-06-11 23:21] VITALS: BP 124/62; PULSE 74
[2025-06-11] MEDS: Senna Tablet 1 TABLET GT (23:22)
[2025-06-11] MEDS: 0.9% Saline Lock 10 ML Syringe IV (23:24)
[2025-06-12] MEDS: Jevity 1.5. 1,000 ML Bottle 240 ML GT ×5 (05:48→21:34)
[2025-06-12] MEDS: Acetaminophen 650 MG/20 ML UDC GT ×4 (05:48→23:47)
[2025-06-12] MEDS: Multivitamin (Healthy Eyes) Capsule 1 CAP GT (10:59)
[2025-06-12 11:01] VITALS: BP 105/59; PULSE 77
[2025-06-12] MEDS: Cholecalciferol (Vit D3) 125 MCG CAPSULE (5,000 UNITS) GT (11:03)
[2025-06-12] MEDS: 0.9% Saline Lock 10 ML Syringe IV (11:21)
[2025-06-12 11:33] VITALS: BP 105/59; PULSE 77; RESP 16; TEMP 36.9; O2SAT 93
[2025-06-12 14:40] VITALS: PULSE 77; RESP 16; O2SAT 93
[2025-06-12] MEDS: Hydrocortisone 2.5% Crm 1 APPLIC TOPICAL (14:46)
--- NOTE | 2025-06-12 18:02 | NURSING ---
PEG TUBE VERIFIED BY AIR BOLUS, O RESIDUALS. PEG SITE CLEANED AND CHANGED,NO S/S OF INFECTION. MOUTH CARE GIVEN. PT TOLERATED ALL WELL.
[2025-06-12 21:32] VITALS: BP 123/64; PULSE 73
[2025-06-13 04:49] VITALS: PULSE 73; RESP 18; O2SAT 93
[2025-06-13] MEDS: Acetaminophen 650 MG/20 ML UDC GT ×4 (05:07→23:02)
[2025-06-13] MEDS: 0.9% Saline Lock 10 ML Syringe IV (05:07)
[2025-06-13] MEDS: Jevity 1.5. 1,000 ML Bottle 240 ML GT ×5 (05:07→23:02)
[2025-06-13 10:32] VITALS: BP 112/50; PULSE 84; RESP 17; TEMP 36.6; O2SAT 92
[2025-06-13] MEDS: Multivitamin (Healthy Eyes) Capsule 1 CAP GT (10:36)
[2025-06-13 10:37] VITALS: PULSE 84
[2025-06-13] MEDS: Cholecalciferol (Vit D3) 125 MCG CAPSULE (5,000 UNITS) GT (10:39)
--- NOTE | 2025-06-13 15:39 | NURSING ---
Patient requesting Primofit @[facility] d/t urinary incontinence and frequency. Patient unable to sleep. Call placed to Dr. Wiggins. OK from Dr. Wiggins for Primofit @. [facility].
[2025-06-13 20:57] VITALS: BP 111/56; PULSE 75
[2025-06-13] MEDS: Senna Tablet 1 TABLET GT (20:58)
[2025-06-14] MEDS: Jevity 1.5. 1,000 ML Bottle 240 ML GT ×5 (05:55→22:57)
[2025-06-14] MEDS: Acetaminophen 650 MG/20 ML UDC GT ×4 (05:56→22:59)
[2025-06-14 06:46] VITALS: PULSE 76; RESP 16; O2SAT 92
[2025-06-14 09:30] VITALS: BP 111/52; PULSE 83; RESP 17; TEMP 36.6; O2SAT 93
[2025-06-14] MEDS: Multivitamin (Healthy Eyes) Capsule 1 CAP GT (09:34)
[2025-06-14 09:35] VITALS: PULSE 83
[2025-06-14] MEDS: Cholecalciferol (Vit D3) 125 MCG CAPSULE (5,000 UNITS) GT (09:36)
[2025-06-14 22:58] VITALS: BP 134/54; PULSE 70
[2025-06-14] MEDS: Senna Tablet 1 TABLET GT (22:59)
[2025-06-14] MEDS: 0.9% Saline Lock 10 ML Syringe IV (23:09)
[2025-06-15] MEDS: Acetaminophen 650 MG/20 ML UDC GT ×4 (06:33→22:34)
[2025-06-15] MEDS: Jevity 1.5. 1,000 ML Bottle 240 ML GT ×5 (06:33→22:34)
--- NOTE | 2025-06-15 07:40 | NURSING ---
Per. Dr.Kwok hollins to discontinue Q6 accuchecks
--- NOTE | 2025-06-15 08:20 | ST.MBS ---
Modified Barium Swallow Patient Information Study Date: 06/15/25 Study Time: 10:30 Direct Billable Minutes: 117 Total Minutes procedure & reportin Diagnosis: Dysphagia R13.10 Referring Physician: Jesus Alberto Wiggins Chi Reason for Referral: Assess swallow function, assess risk for aspiration, and determine recommendations for least restrictive diet textures and compensatory strategies to improve swallowing safety. 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 Injuries:?1. Right orbital floor. 2. Buckle fracture right anterior cranial floor/orbital roof. 3. Small right subdural hematoma. 4. Trace right frontal SAH.?5. Bilateral pubic rami fracture with extension to acetabular wall.?6. Nondisplaced Sacral ala fracture right. Incidental findings:?1. AAA 4.7cm.?2. Left common iliac aneurysm..?3. Right common iliac aneurysm. During his hospitalization 05/10/25-05/20/25 he was also diagnosed with severe oropharyngeal dysphagia with recommendation for NPO. A Dobhoff was placed 05/14/25 after MBSS revealed severe oropharyngeal dysphagia w/ silent aspiration of all liquid consistencies. Other noted concerns from MBSS were severe cervical lordosis, delayed initiation of the pharyngeal swallow, incomplete airway closure, reduced pharyngeal constriction, reduced UES opening/duration, and ineffective cued coughs. Admitted to [facility] 05/20/[address], OT, PT prior to discharge home w/ . ?ST evaluation 05/21/2025 recommended NPO. 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 He has participated in 10 dysphagia therapy sessions w/ oropharyngeal strengthening in junction w/ NMES, as well as thin water trials w/ GAMING TABLE OPERATOR and vocal adduction exercises. The patient has been recommended for repeat MBSS today to re-evaluate swallow function, aspiration risk, and consider the patient for diet advancement if appropriate. PMH: Dysphagia, HLD, Depression, BPH, TIA, CAD, Carotid artery stenosis, Osteoarthritis, HTN, GERD, Sacral fracture, Bilateral pubic rami fractures, SAH, SDH, Orbital roof fracture, Orbital floor fracture, Debility. Current Diet Ordered: NPO Dentition: Natural Teeth and Missing Teeth Mental Status: Impaired Respiratory Status: Oxygenating on Room Air Penetration-Aspiration Scale Penetration-Aspiration Scale: OBJECTIVE ASSESSMENT OF SWALLOW FUNCTION (QUANTITATIVE ? PER TRIAL): PENETRATION / ASPIRATION SCALE (VARGAS): 1 = does not enter airway 2 = enters airway/above vocal folds/ejected 3 = enters airway/above vocal folds/not ejected 4 = enters airway/contacts vocal folds/ejected 5 = enters airway/contacts vocal folds/not ejected 6 = enters airway/below vocal folds/ejected 7 = enters airway/below vocal folds/not ejected despite effort 8 = enters airway/below vocal folds/no effort VIDEOFLOROSCOPIC SCALE SCORE (VARGAS): Grade I = aspiration of material that has penetrated into the laryngeal vestibule, intact cough reflex Grade II = aspiration < 10 % of the bolus, intact cough reflex Grade III = aspiration of < 10 % of the bolus, reduced cough reflex or aspiration of > 10 % of the bolus, intact cough reflex Grade IV = aspiration of > 10 % of the bolus, reduced cough reflex Penetration-Aspiration Scale Score Thin Liquid via teaspoon: Result: 8= enters airway/below vocal folds/no effort Thin Liquid via teaspoon Chin tuck: Result: 7= enters airways/below vocal folds/not ejected despite effort Comment: Delayed, reflexive throat clear appeared to mostly clear aspirated and penetrated contrast. [place] Thick Liquid via teaspoon: Result: 3= enters airways/above vocal folds/not ejected [place] Thick Liquid via teaspoon Trial 2: Result: 3= enters airways/above vocal folds/not ejected [place] Thick Liquid via small single sip: cup: Result: 3= enters airways/above vocal folds/not ejected Pudding via teaspoon: Result: 2= enter airway/above vocal folds/ejected Comment: Esophageal screen - Retention throughout the esophagus. [place] Thick Liquid via small single sip: cup Trial 2: Result: 7= enters airways/below vocal folds/not ejected despite effort Comment: Esophageal screen - Liquid wash somewhat cleared pudding retention in the esophagus; however, significant barium pudding retention remained in the middle esophagus after liquid wash. [place] Thick Liquid Trial 3: Result: 5= enters airways/contacts vocal folds/not ejected Comment: Reflexive throat appeared to fully clear penetrated contrast from the vocal folds and laryngeal vestibule. [place] Thick Liquid w/ Cued effortful, multiple swallows and volitional throat [id number]-swallow: Result: 2= enter airway/above vocal folds/ejected Pudding via teaspoon Trial 2: Result: 2= enter airway/above vocal folds/ejected [place] Thick Liquid w/ Cued effortful, multiple swallows and volitional throat [id number]-swallow Trial 2: Result: 4= enters airway/contacts vocal folds/ejected Oral Phase Labial Seal: No Labial Escape Tongue Control During Bolus Hold: Posterior escape of greater than half of bolus (pudding trial 2 w/ lingual pumping) Bolus Transport/Lingual Motion: Repetitive/disorganized tongue motion Oral Residue: Residue collection on oral structures Pharyngeal Phase Initiation of Pharyngeal Swallow: Bolus head in valleculae Soft Palate Elevation: Escape to nasopharynx Laryngeal Elevation: Partial superior movement thyroid cart/partial apprx aryt-epig petiole Anterior Hyoid Excursion: Partial anterior movement Epiglottic Movement: Partial inversion Laryngeal Vestibule Closure at Height of Swallow: Incomplete; narrow column of air/contrast in laryngeal vestibule Pharyngeal Stripping Wave: Present - diminished Pharyngoesophageal Segment Opening: Minimal distension and minimal duration; marked obstruction of flow Tongue Base Retraction: Wide column of contrast between tongue base & post. pharyngeal wall Pharyngeal Residue: Majority of contrast within or on pharyngeal structures Esophageal Phase Esophageal Clearance: Esophageal retention Diagnosis/Impression Diagnosis: Moderate-severe oropharyngeal dysphagia R13.12; Esophageal dysphagia R13.14 MBS Impressions: The oral phase is primarily marked by... -Did not assess mastication abilities due to poor pharyngeal clearance of pudding and concern for increased risk for choking w/ solids. -Mildly decreased bolus control w/ posterior loss of >1/2 of pudding bolus to the vallecula prior to swallow onset. -Lingual pumping w/ pudding. The pharyngeal phase is primarily marked by... -Decreased pharyngeal motility secondary to poor TB retraction and pharyngeal stripping wave. Liquid wash helped to clear pharyngeal retention of pudding. -Decreased airway closure secondary to decreased laryngeal elevation and anterior hyoid excursion w/ partial epiglottic inversion. -SILENT aspiration of thin liquids by tsp (first trial). Overt aspiration of thin by tsp (second trial) and mildly thick liquids via cup w/ delayed reflexive cough and throat clear w/ these trials. Reflexive cough and throat clear were mostly effective in clearing penetrated/aspirated barium. The esophageal phase is primarily marked by... -Retention of pudding throughout the esophagus, which somewhat cleared when provided mildly thick liquid wash. Recommendations Diet: NPO Comment: Ok for trials of puree and mildly thick liquids w/ GAMING TABLE OPERATOR only. Recommend tsp bites of puree consistencies w/ use of effortful, multiple swallows. Recommend tsp sips of mildly thick liquids w/ use of effortful, multiple swallow and cough/throat clear and re-swallow w/ each sip. Recommend Repeat Modified Barium Swallow: Yes (Will recommend repeat MBSS after continued participation in NMES for 1-2 weeks OR after GI intervention if patient is deemed appropriate for dilation at the UES.) Need for Skilled Speech Therapy Services: Yes Comment: -Continue per TCU dysphagia POC utilizing NMES in junction w/ oropharyngeal exercise and po trials w/ GAMING TABLE OPERATOR. -Oropharyngeal exercise to consider would include Josette, Candis, Effortful, CTAR, and also velopharyngeal exercise. -If good diet tolerance of trials of puree / mildly thick liquids w/ GAMING TABLE OPERATOR, could consider bedside diet advancement to either full mildly thick liquid or puree textures / mildly thick liquids by tsp w/ strict aspiration precautions if deemed clinically appropriate by treating GAMING TABLE OPERATOR. Would monitor respiratory status closely. Recommended Referrals: GI Consult (Poor UES opening/duration and esophageal retention of barium) Education Completed: 1. Described result of evaluation. Status Active ST Patient: Active Contact Information [facility] Speech Therapy:: Latisha Jensen M.A. [facility]-GAMING TABLE OPERATOR Speech-Language Pathologist [facility] [address] [place] [address] [phone]
[2025-06-15 09:28] VITALS: BP 94/55; PULSE 94; RESP 18; TEMP 36.3; O2SAT 97
[2025-06-15] MEDS: Multivitamin (Healthy Eyes) Capsule 1 CAP GT (09:32)
[2025-06-15] MEDS: Cholecalciferol (Vit D3) 125 MCG CAPSULE (5,000 UNITS) GT (09:36)
[2025-06-15 09:39] VITALS: BP 94/55; PULSE 94
--- NOTE | 2025-06-15 09:45 | NURSING ---
no residual noted with peg tube, pt tolerated meds and jevity well. oral care provided.
--- NOTE | 2025-06-15 11:08 | NURSING ---
pt off floor at 1030 for barrium swallow
--- NOTE | 2025-06-15 11:36 | NURSING ---
pt returned to unit
--- NOTE | 2025-06-15 14:14 | WOUNDNOTE ---
Pt out of room for therapy. will assess buttocks at a later time. open areas had been healed last week, but will monitor.
--- NOTE | 2025-06-15 15:05 | NURSING ---
no residual noted with peg tube, tolerated jevity with no issues
--- NOTE | 2025-06-15 18:07 | CON.PCM.GI_ITS ---
HPI Consult Data Date of Consult: 06/15/25 HPI Narrative Reason for Consultation: Ongoing dysphagia and abnormal swallowing study HPI Narrative: 89 year old male with below past medical history hospitalized for SDH, SAH, multiple traumatic fractures, complicated by dysphagia requiring dobbhoff TF, admitted to TCU with debility. I was consulted to see him due to his inability to swallow safely and need for placement of PEG tube. A PEG tube was placed. He recently underwent a repeat video swallow and was discovered to have problems at the level of the upper esophageal sphincter in decreased clearance of liquids once and into the esophagus. He has been having problems with dysphagia, coughing, and a wet, gurgly vocal quality following meals * Video Swallow Study (VFSS):?Shows poor upper esophageal sphincter (UES) opening during swallowing. * Oral Phase:?Noted to be intact and within functional limits. * Pharyngeal Phase: * Initiation of swallow is delayed, with bolus pooling in the pharyngeal and pyriform sinuses. * Hyolaryngeal excursion (upward and forward movement) is reduced, contributing to the poor UES opening. * Following the swallow, significant residue is observed in the pharyngeal area. * Airway Protection:?Penetration and trace aspiration are observed with thin liquids due to UES dysfunction and residual pooling. * Esophageal Phase:?The limited view of the esophageal phase shows possible poor motility, but a full evaluation is warranted. [facility] Medical History Dysphagia Hyperlipidemia Depression BPH (benign prostatic hyperplasia) TIA (transient ischemic attack) Coronary artery disease Carotid artery stenosis Osteoarthritis Essential (primary) hypertension GERD (gastroesophageal reflux disease) Sacral fracture Bilateral pubic rami fractures SAH (subarachnoid hemorrhage) SDH (subdural hematoma) Orbital roof fracture Orbital floor fracture Debility Home Medications ?Medication ?Instructions ?Recorded ?Last Taken ?Type acetaminophen 325 mg capsule 650 mg feeding tube Q6H P ain 05/20/25 05/20/25 10:20 History alfuzosin 10 mg tablet,extended 10 mg PO DAILY BPH Unknown History release 24 hr amitriptyline 10 mg tablet 10 mg feeding tube QHS Mood 05/20/25 Unknown History amlodipine 5 mg tablet 5 mg feeding tube DAILY BP 0 05/20/25 Unknown History aspirin 81 mg tablet 81 mg PO DAILY Heart 5 Unknown History benazepril 40 mg tablet 40 mg feeding tube DAILY BP 05/20/25 Unknown History bisacodyl 5 mg tablet 5 mg PO DAILY PRN constipati on 05/20/25 Unknown History cholecalciferol (vitamin D3) 125 125 mcg feeding tube DAILY 05/20/25 05/20/25 10:20 History mcg (5,000 unit) tablet Supplement cyanocobalamin (vitamin B-12) 1,000 mcg PO DAILY Suppl ement 05/20/25 05/20/25 10:25 History 1,000 mcg capsule enoxaparin 30 mg/0.3 mL 30 mg subcut Q12H DVT prophy laxis 05/20/25 05/20/25 12:30 History subcutaneous syringe escitalopram oxalate 5 mg tablet 5 mg feeding tube ELIN LY Mood 05/20/25 Unknown History folic acid 1 mg tablet 2 mg feeding tube DAILY Supp lement 05/20/25 Unknown History methotrexate sodium 5 mg tablet 20 mg feeding tube QWE EK Arthritis 05/20/25 Unknown History (Trexall) metoprolol tartrate 25 mg tablet 25 mg feeding tube BI D BP 05/20/25 Unknown History omeprazole 40 mg capsule,delayed 40 mg PO DAILY GERD 0 05/20/25 Unknown History release ondansetron HCl 4 mg tablet 4 mg feeding tube Q8H PRN nausea 05/20/25 Unknown History and vomiting oxycodone 5 mg tablet 5 mg feeding tube Q4H PRN pa in 05/20/25 Unknown History (scale score 7-10) pantoprazole 40 mg tablet,delayed 40 mg PO DAILY GERD 05/20/25 Unknown History release polyethylene glycol 3350 17 17 g feeding tube DAILY Unknown History gram/dose oral powder (Miralax) Constipation pravastatin 40 mg tablet 40 mg feeding tube QHS Vivian sterol 05/20/25 Unknown History sennosides 8.6 mg tablet (Senokot) 8.6 mg PO QHS Const ipation 05/20/25 Unknown History vitamins A,C,I-ltpu-clelms 4,296 1 cap PO DAILY Eye Vi tamin 05/20/25 Unknown History mcg-226 mg-90 mg capsule (Healthy Eyes SuperVision) doxazosin 4 mg tablet (Cardura) 4 mg PO QHS 05/25/25 U nknown History lactose-reduced food-fiber 0.07 See Rx Instructions fe eding tube 05/25/25 Unknown History gram-1.5 kcal/mL liquid for tube .COMPLEX feed (Isosource 1.5 Randy) menthol 0.44 %-zinc oxide 20.6 % 1 applic topical BID 05/25/25 Unknown History topical ointment (CalaSoothe) Allergy/AdvReac Type Severity Reaction Status Date / Time No Known Allergies Allergy Verified 05/20/25 19:39 Family History Mother Hypertension Hyperlipidemia, unspecified Osteoarthritis Hearing loss Vision loss Father Heart disease Pneumonia CVA (cerebral vascular accident) Hearing loss Suicide attempt Surgical History History of wisdom tooth extraction History of vasectomy History of tonsillectomy and adenoidectomy History of total hip arthroplasty History of shoulder surgery History of hernia repair History of colonoscopy History of circumcision History of cataract surgery History of cardiac catheterization Social History household members: spouse Smoking Status: Former smoker alcohol intake: never substance use type: does not use ROS Constitutional Constitutional: Denies fatigue, fever(s), poor appetite, weight gain or weight loss Gastrointestinal Gastrointestinal: Denies belching, bloating, change in bowel habits, change in stool character, chewing difficulty, coffee ground emesis, constipation, cramping, diarrhea, dyspepsia, dysphagia, early satiety, excessive flatus, fecal incontinence, heartburn, hematemesis, hematochezia, hemorrhoids, loose stools, melena, nausea, odynophagia, rectal bleeding, tenesmus, vomiting or weight changes Physical Exam Const alert, oriented x3, no apparent distress and healthy appearing General Appearance: cooperative GI normal to inspection, nondistended, normoactive bowel sounds, soft to palpation, non-tender and non-distended Percussion: normal to percussion Rectal Exam: deferred Medical Records Data Medical Nutrition Assessment Dietitian: Malnutrition Criteria Met Start: 05/21/25 14:30 Freq: Status: Active Protocol: Document 06/03/25 09:58 SLA (Rec: 06/03/25 09:59 SLA [id number]) Nutrition Malnutrition Evidence of Yes Malnutrition Exists Malnutrition (severe Acute Illness/Injury ): Evidenced By Suboptimal Energy Intake (Severe),Weight Loss (Severe) Intake Problem Increased Nutrient Needs (specify) Etiology protein related to skin status Signs/Symptoms as evidenced by PI neville buttock Status Active Problem Inadequate Oral Intake Etiology related to swallowing difficulty Signs/Symptoms as evidenced by NPO and need for enteral nutrition support Status Active Problem Clinical Problem Acute Disease or Injury Related Malnutrition Etiology severe protein-calorie malnutrition in the context of acute illness and injury related to swallowing difficulty and inadequate energy intake Signs/Symptoms as evidenced by ~10% unintentional weight loss x less than 1 month and oral intake meeting less than 50- 75% estimated nutrition needs; need for enteral nutrition support Status Active Problem Recommendation Dietitian NPO; QUANTITY SURVEYOR evaluation to assess ability to safely take Recommendations/ oral nutrition. Changes Will change bolus tf to 240 ml Jevity 1.5 w/ 180 ml water flush 5x/day (800, 1100, 1400, 1800, 2200) to provide 1800 randy / 76 gm pro/ 1812 ml free water/day. Rec Khalif bid w/ medpass if warranted to help w/ wound healing. Will monitor TF tolerance, weight and follow-up. Lab / Micro Data 06/11/25 07:19 06/11/25 07:19 Labs: Laboratory Results - last 24 hr 06/14/25 17:55: POC Glucose 97 06/15/25 00:42: POC Glucose 123 H 06/15/25 05:50: POC Glucose 94 Micro: Microbiology 06/15/25 06:31 Nasal Secretion SARS-CoV-2 Antigen (Rapid) - Final Assessment & Plan Assessment/Plan (1) Dysphagia: PLAN: The 89-year-old male is diagnosed with oropharyngeal dysphagia, specifically related to poor UES opening likely due to subarachnoid hemorrhage and subdural hematoma. He has reduced hyolaryngeal excursion, which is a common age-related change, is a primary biomechanical cause. His advanced age also places him at a higher risk for silent aspiration, a severe complication of dysphagia where aspiration occurs without a cough or other sign of distress. The patient will be managed very well with a combination of compensatory strategies, strengthening exercises, and nutritional support. He may need e sophageal manometry or repeat endoscopy to rule out other esophageal issues such as achalasia, strictures, or diverticulum. So the plan will be for him to have repeat upper endoscopy on 06/17/2025. Please hold his tube feedings at midnight on 06/16/2025. Charges/Coding Visit Charges Inpatient E&M: 96390 [facility] Init L2
[2025-06-15] MEDS: 0.9% Saline Lock 10 ML Syringe IV (18:36)
[2025-06-15 22:38] VITALS: BP 145/64; PULSE 76
[2025-06-16] MEDS: Jevity 1.5. 1,000 ML Bottle 240 ML GT ×4 (05:40→21:57)
[2025-06-16 09:08] VITALS: BP 132/63; PULSE 91
[2025-06-16 10:00] VITALS: BP 132/63; PULSE 91; RESP 16; TEMP 36.7; O2SAT 97
[2025-06-16] MEDS: Acetaminophen 650 MG/20 ML UDC GT ×3 (14:06→21:55)
[2025-06-16 15:00] VITALS: BMI 23.1
--- NOTE | 2025-06-16 15:04 | NURSING ---
Family brought in $80 for patient to have for haircuts and other spending. Locked in med box. Patient aware.
[2025-06-16] MEDS: Multivitamin (Healthy Eyes) Capsule 1 CAP GT (15:48)
[2025-06-16] MEDS: Cholecalciferol (Vit D3) 125 MCG CAPSULE (5,000 UNITS) GT (15:49)
--- NOTE | 2025-06-16 16:15 | NURSING ---
AC called to schedule EGD for 06/17 at 1545. P/U 1445. They had planned to do procedure today and patient was NPO after 0600, so patient made aware of change. Bolus feed and AM meds given after date change.
[2025-06-16] MEDS: 0.9% Saline Lock 10 ML Syringe IV (18:27)
[2025-06-16 19:37] VITALS: BP 107/50; PULSE 82; RESP 18; TEMP 36.4; O2SAT 94
[2025-06-16 21:55] VITALS: PULSE 74
--- NOTE | 2025-06-17 05:00 | EKG12_ITS ---
Test Reason : PRE-OP Blood Pressure : */* mmHG Vent. Rate : 75 BPM Atrial Rate : 75 BPM P-R Int : 184 ms QRS Dur : 92 ms QT Int : 380 ms P-R-T Axes : 38 -15 48 degrees QTcB Int : 424 ms Normal sinus rhythm Normal ECG No previous ECGs available Confirmed by HEATHER TAI ([id number]), video effects editor SEFERINO SAUCEDA ([id number]) on 06/17/2025 2:01:21 PM Referred By: Jesus Alberto Wiggins Confirmed By: HEATHER TAI
[2025-06-17] MEDS: Acetaminophen 650 MG/20 ML UDC GT ×3 (05:19→18:29)
[2025-06-17 06:05] LABS: Hematocrit 31.2 % (40-54); Hemoglobin 10.4 g/dL (13.0-16.5); Immature Granulocytes Count 0.040 X10^3/uL (0.0-0.0); Mean Corp Hgb Conc 33.3 g/dL (32-36); Mean Corpuscular Volume 98.7 fL (80-94); Mean Platelet Vol. 9.0 fl (6.2-12.0); NRBC Flagged by Analyzer 0 % (0-5); Platelet Count 285 K/mm3 (150-450); RBC Distribution Width CV 14.3 % (11.6-14.6); RBC Distribution Width SD 52.4 fl (35.1-43.9); Red Blood Count 3.16 M/mm3 (4.6-6.2); White Blood Count 6.3 K/mm3 (4.4-11.0)
[2025-06-17 06:17] LABS: Prothrombin Time (Protime)PT. 13.8 SECONDS (11.7-14.9)
[2025-06-17 06:18] LABS: Partial Thromboplast Time 26.3 Seconds (24.1-36.2)
[2025-06-17 06:34] LABS: Anion Gap 11 (5-15); BUN 20 mg/dL (4-19); BUN/Creat Ratio 31.2 RATIO (10-20); Calcium,Total 8.6 mg/dL (7.6-11.0); Carbon Dioxide 23.9 mmol/L (21.0-32.0); Chloride 96 mmol/L (98-108); Estimated Creatinine Clearance 56.49 ml/min (50-250); Glucose 96 mg/dL (70-99); Potassium 5.0 mmol/L (3.3-5.1)
[2025-06-17 10:01] VITALS: BP 107/50; PULSE 82; RESP 17; TEMP 36.4
[2025-06-17 10:05] VITALS: BP 107/50; PULSE 82
[2025-06-17] MEDS: 0.9% Saline Lock 10 ML Syringe IV (12:12)
[2025-06-17 12:54] VITALS: RESP 17; O2SAT 94
--- NOTE | 2025-06-17 14:48 | NURSING ---
patient left floor for endo procedure [id number]
[2025-06-17 17:52] VITALS: BP 126/66; PULSE 77; RESP 18; O2SAT 94
[2025-06-17] MEDS: Jevity 1.5. 1,000 ML Bottle 240 ML GT ×2 (18:28→21:57)
[2025-06-17 21:59] VITALS: BP 114/56; PULSE 80
[2025-06-17] MEDS: Senna Tablet 1 TABLET GT (21:59)
[2025-06-18] MEDS: Acetaminophen 650 MG/20 ML UDC GT ×4 (00:07→18:24)
[2025-06-18] MEDS: Jevity 1.5. 1,000 ML Bottle 240 ML GT ×5 (05:23→21:24)
[2025-06-18 05:39] VITALS: O2SAT 95
[2025-06-18 05:47] LABS: Hematocrit 32.1 % (40-54); Hemoglobin 10.8 g/dL (13.0-16.5); Immature Granulocytes Count 0.040 X10^3/uL (0.0-0.0); Mean Corp Hgb Conc 33.6 g/dL (32-36); Mean Corpuscular Volume 98.8 fL (80-94); Mean Platelet Vol. 9.0 fl (6.2-12.0); NRBC Flagged by Analyzer 0 % (0-5); Platelet Count 291 K/mm3 (150-450); RBC Distribution Width CV 14.2 % (11.6-14.6); RBC Distribution Width SD 51.7 fl (35.1-43.9); Red Blood Count 3.25 M/mm3 (4.6-6.2); White Blood Count 7.2 K/mm3 (4.4-11.0)
[2025-06-18 06:23] LABS: Anion Gap 9 (5-15); BUN 17 mg/dL (4-19); BUN/Creat Ratio 27.3 RATIO (10-20); Calcium,Total 8.3 mg/dL (7.6-11.0); Carbon Dioxide 22.4 mmol/L (21.0-32.0); Chloride 99 mmol/L (98-108); Estimated Creatinine Clearance 56.49 ml/min (50-250); Glucose 93 mg/dL (70-99); Potassium 4.6 mmol/L (3.3-5.1)
[2025-06-18] MEDS: Multivitamin (Healthy Eyes) Capsule 1 CAP GT (10:11)
[2025-06-18 10:13] VITALS: BP 114/51; PULSE 85
[2025-06-18] MEDS: Cholecalciferol (Vit D3) 125 MCG CAPSULE (5,000 UNITS) GT (10:15)
[2025-06-18 10:56] VITALS: BP 114/51; PULSE 85; RESP 16; TEMP 36.4; O2SAT 91
[2025-06-18 13:00] LABS: Mucous, Urine 0 SEEN /hpf (<or=2+); Red Blood Cells-Urine 0 SEEN /hpf (0-5); Squamous Epithelial Cells - UA 0 SEEN /hpf (0-5)
[2025-06-18 13:10] LABS: Color, Urine Yellow (Yellow); Glucose, Dipstick Normal (Normal); Ketone-Dipstick Negative (Negative); Leukocyte Esterase-Dipstick Negative /ul (Negative); Nitrite-Dipstick Negative (Negative); Occult Blood-Urine Negative /ul (Negative); Protein-Dipstick 30 mg/dl (Negative); Specific Gravity, Urine 1.020 (1.002-1.030); Urine Bilirubin Dipstick Negative (Negative)
[2025-06-18] MEDS: 0.9% Saline Lock 10 ML Syringe IV ×2 (13:22→21:28)
--- NOTE | 2025-06-18 19:24 | NURSING ---
PEG PLACEMENT VERIFIED BY AIR BOLUS, O RESIDUALS. PT TOLERATED WELL.
[2025-06-18] MEDS: Senna Tablet 1 TABLET GT (21:23)
[2025-06-18 21:25] VITALS: BP 103/57; PULSE 72
--- NOTE | 2025-06-18 22:05 | NURSING ---
PICC dressing changed. Pt tolerated well
--- NOTE | 2025-06-18 22:07 | NURSING ---
No residual noted with peg tube, tolerated 2200 feeding well
[2025-06-19] MEDS: Jevity 1.5. 1,000 ML Bottle 240 ML GT ×5 (06:25→22:08)
[2025-06-19] MEDS: Acetaminophen 650 MG/20 ML UDC GT ×4 (06:25→18:23)
[2025-06-19] MEDS: Multivitamin (Healthy Eyes) Capsule 1 CAP GT (09:52)
[2025-06-19 09:53] VITALS: BP 104/55; PULSE 78
[2025-06-19] MEDS: Cholecalciferol (Vit D3) 125 MCG CAPSULE (5,000 UNITS) GT (09:53)
[2025-06-19] MEDS: 0.9% Saline Lock 10 ML Syringe IV ×2 (10:01→22:10)
--- NOTE | 2025-06-19 10:22 | NURSING ---
no residual noted before jevity and medication administration.
--- NOTE | 2025-06-19 18:24 | NURSING ---
no residual noted with peg tube
[2025-06-19 22:04] VITALS: BP 121/61; PULSE 75; O2SAT 94
[2025-06-19 22:06] VITALS: BP 121/61; PULSE 75
[2025-06-20] MEDS: Acetaminophen 650 MG/20 ML UDC GT ×4 (00:22→18:01)
[2025-06-20] MEDS: Jevity 1.5. 1,000 ML Bottle 240 ML GT ×5 (06:41→21:23)
[2025-06-20] MEDS: Multivitamin (Healthy Eyes) Capsule 1 CAP GT (10:53)
[2025-06-20 10:56] VITALS: BP 97/55; PULSE 78
[2025-06-20] MEDS: Cholecalciferol (Vit D3) 125 MCG CAPSULE (5,000 UNITS) GT (10:57)
[2025-06-20] MEDS: 0.9% Saline Lock 10 ML Syringe IV (11:17)
[2025-06-20 11:20] VITALS: BP 97/55; PULSE 78; RESP 16; TEMP 36.9; O2SAT 94
--- NOTE | 2025-06-20 11:22 | NURSING ---
BP RUNNING LOW. BP MEDS HELD PER PROTOCOL. WILL CONTINUE TO MONITOR.
[2025-06-20 14:10] VITALS: BP 113/59; PULSE 77
--- NOTE | 2025-06-20 18:31 | NURSING ---
PEG PLACEMENT VERIFIED BY AIR BOLUS, 0 RESIDUALS. PT TOLERATED WELL.
[2025-06-20 21:21] VITALS: BP 129/62; PULSE 80
[2025-06-20] MEDS: Senna Tablet 1 TABLET GT (21:21)
[2025-06-21] MEDS: Acetaminophen 650 MG/20 ML UDC GT ×4 (00:22→18:06)
[2025-06-21] MEDS: Jevity 1.5. 1,000 ML Bottle 240 ML GT ×5 (06:02→21:00)
[2025-06-21 10:09] VITALS: BP 112/69; PULSE 85
[2025-06-21] MEDS: Multivitamin (Healthy Eyes) Capsule 1 CAP GT (10:09)
[2025-06-21] MEDS: Cholecalciferol (Vit D3) 125 MCG CAPSULE (5,000 UNITS) GT (10:09)
[2025-06-21] MEDS: 0.9% Saline Lock 10 ML Syringe IV (10:19)
[2025-06-21 10:35] VITALS: BP 112/69; PULSE 85; RESP 18; TEMP 36.9; O2SAT 94
[2025-06-21 13:30] VITALS: PULSE 72; RESP 18; O2SAT 93
--- NOTE | 2025-06-21 18:22 | NURSING ---
PEG PLACEMENT VERIFIED BY AIR BOLUS, 0 RESIDUALS. PEG SITE CLEANED AND NEW DRESSING. NO S/S OF INFECTION OR REDNESS. PICC GOOD BLOOD RETURNED AND FLUSHED WELL. NO REDNESS OR S/S OF INFECTION. PT TOLERATED WELL.
[2025-06-21 20:59] VITALS: BP 105/53; PULSE 78
[2025-06-21] MEDS: Senna Tablet 1 TABLET GT (20:59)
[2025-06-22] MEDS: Acetaminophen 650 MG/20 ML UDC GT ×4 (00:18→17:35)
[2025-06-22] MEDS: Jevity 1.5. 1,000 ML Bottle 240 ML GT ×5 (05:43→21:01)
[2025-06-22] MEDS: 0.9% Saline Lock 10 ML Syringe IV ×3 (05:44→21:16)
[2025-06-22 05:55] VITALS: PULSE 82; RESP 16; O2SAT 94
[2025-06-22 11:06] VITALS: BP 126/59; PULSE 74; RESP 16; TEMP 37.1; O2SAT 94
[2025-06-22] MEDS: Multivitamin (Healthy Eyes) Capsule 1 CAP GT (11:09)
[2025-06-22 11:10] VITALS: BP 126/59; PULSE 74
[2025-06-22] MEDS: Cholecalciferol (Vit D3) 125 MCG CAPSULE (5,000 UNITS) GT (11:11)
--- NOTE | 2025-06-22 17:49 | NURSING ---
no residual noted with tube feed, tolerated well. dry & intact.
[2025-06-22 20:54] VITALS: BP 128/57; PULSE 79
[2025-06-22 21:00] VITALS: BP 128/57; PULSE 79
[2025-06-22] MEDS: Senna Tablet 1 TABLET GT (21:00)
[2025-06-23] MEDS: Acetaminophen 650 MG/20 ML UDC GT ×5 (00:19→21:56)
[2025-06-23] MEDS: Jevity 1.5. 1,000 ML Bottle 240 ML GT ×5 (06:12→22:00)
[2025-06-23 10:27] VITALS: BP 106/60; PULSE 89
[2025-06-23] MEDS: Multivitamin (Healthy Eyes) Capsule 1 CAP GT (10:27)
[2025-06-23] MEDS: Cholecalciferol (Vit D3) 125 MCG CAPSULE (5,000 UNITS) GT (10:27)
[2025-06-23 10:51] VITALS: BP 106/60; PULSE 89; RESP 18; TEMP 36.4; O2SAT 94
--- NOTE | 2025-06-23 13:30 | SP.MBSS_ITS ---
Modified Barium Swallow Patient Information Study Date: 06/23/25 Study Time: 13:00 Direct Billable Minutes: 101 Total Minutes procedure & reportin Diagnosis: Dysphagia R13.10 Referring Physician: Jesus Alberto Wiggins Chi Reason for Referral: Re-assess swallow function and risk for aspiration to determine if patient is safe for diet advancement s/p EGD w/ dilation and botox injection of UES. 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 Injuries:?1. Right orbital floor. 2. Buckle fracture right anterior cranial floor/orbital roof. 3. Small right subdural hematoma. 4. Trace right frontal SAH.?5. Bilateral pubic rami fracture with extension to ac etabular wall.?6. Nondisplaced Sacral ala fracture right. Incidental findings:?1. AAA 4.7cm.?2. Left common iliac aneurysm..?3. Right common iliac aneurysm. During his hospitalization 05/10/25-05/20/25 he was also diagnosed with severe oropharyngeal dysphagia with recommendation for NPO. A Dobhoff was placed 05/14/25 after MBSS revealed severe oropharyngeal dysphagia w/ silent aspiration of all liquid consistencies. Other noted concerns from MBSS were severe cervical lordosis, delayed initiation of the pharyngeal swallow, incomplete airway closure, reduced pharyngeal constriction, reduced UES opening/duration, and ineffective cued coughs. Admitted to [facility] 05/20/[address], OT, PT prior to discharge home w/ . ?ST evaluation 05/21/2025 recommended NPO. 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 The patient participated in 10 dysphagia therapy sessions w/ oropharyngeal strengthening in junction w/ NMES, as well as thin water trials w/ DAMAGE APPRAISER and vocal adduction exercises. Repeat MBSS 06/15/2025 revealed moderate- severe oropharyngeal dysphagia and esophageal dysphagia w/ recommendations for NPO, Ok for trials of puree and mildly thick liquids w/ DAMAGE APPRAISER only. Recommend tsp bites of puree consistencies w/ use of effortful, multiple swallows. Recommend tsp sips of mildly thick liquids w/ use of effortful, multiple swallow and co ugh/throat clear and re-swallow w/ each sip. Pt was recommended for GI consult, as well. Per treating DAMAGE APPRAISER, the patient has tolerated sips of mildly thick liquids via tsp and cup w/o need for cough and re-swallow; however, pudding trials have been difficult for the patient. He underwent EGD 06/17/2025, which revealed abnormal esophageal motility, established achalasia. Dilated. Injected with botulinum toxin. DAMAGE APPRAISER clarified w/ DrMitzi Ferrara re: site of botox injection and dilation via Backline. He reported pt had dilation of UES and LES, as well as botox injection at the UES. This MBSS was recommended to determine if pt has improved pharyngeal clearance of food/drink for potential diet advancement s/p EGD. PMH: Dysphagia, HLD, Depression, BPH, TIA, CAD, Carotid artery stenosis, Osteoarthritis, HTN, GERD, Sacral fracture, Bilateral pubic rami fractures, SAH, SDH, Orbital roof fracture, Orbital floor fracture, Debility. Current Diet Ordered: NPO Dentition: Natural Teeth and Missing Teeth Mental Status: Impaired (Per MoCA on initial evaluation. Did not impact exam.) Respiratory Status: Oxygenating on Room Air Penetration-Aspiration Scale Penetration-Aspiration Scale: OBJECTIVE ASSESSMENT OF SWALLOW FUNCTION (QUANTITATIVE ? PER TRIAL): PENETRATION / ASPIRATION SCALE (VARGAS): 1 = does not enter airway 2 = enters airway/above vocal folds/ejected 3 = enters airway/above vocal folds/not ejected 4 = enters airway/contacts vocal folds/ejected 5 = enters airway/contacts vocal folds/not ejected 6 = enters airway/below vocal folds/ejected 7 = enters airway/below vocal folds/not ejected despite effort 8 = enters airway/below vocal folds/no effort VIDEOFLOROSCOPIC SCALE SCORE (VARGAS): Grade I = aspiration of material that has penetrated into the laryngeal vestibule, intact cough reflex Grade II = aspiration < 10 % of the bolus, intact cough reflex Grade III = aspiration of < 10 % of the bolus, reduced cough reflex or aspiration of > 10 % of the bolus, intact cough reflex Grade IV = aspiration of > 10 % of the bolus, reduced cough reflex Penetration-Aspiration Scale Score Traver Thick Liquid via teaspoon: Result: 3= enters airways/above vocal folds/not ejected Traver Thick Liquid via small single sip: cup: Result: 4= enters airway/contacts vocal folds/ejected Traver Thick Liquid via small single sip: cup Effortful swallow: Result: 2= enter airway/above vocal folds/ejected Thin Liquid via teaspoon: Result: 1= does not enter airway Thin Liquid via small single sip: cup Effortful swallow: Result: 2= enter airway/above vocal folds/ejected Pudding via teaspoon: Result: 1= does not enter airway Comment: Trace post prandial aspiration, likely of residues of previous trials. Esophageal screen - Mild retention in the upper and lower esophagus. Thin Liquid via small single sip: cup Effortful swallow Trial 2: Result: 8= enters airway/below vocal folds/no effort Comment: Cued cough and re-swallow Esophageal screen - Liquid wash cleared residues of previous trial from the lower esophagus. Mild retention of barium remaining in the upper esophagus. Traver Thick Liquid via small single sip: cup Effortful swallow Trial 2: Result: 2= enter airway/above vocal folds/ejected Comment: Silent post prandial aspiration, likely of trace residues of previous trial remaining on the vocal folds. Traver Thick Liquid via small single sip: cup Effortful swallow Trial 3: Result: 3= enters airways/above vocal folds/not ejected Thin Liquid via teaspoon Trial 2: Result: 7= enters airways/below vocal folds/not ejected despite effort Comment: Delayed, weak cough response Pudding via teaspoon Trial 2: Result: 2= enter airway/above vocal folds/ejected Comment: Silent post prandial aspiration, likely of trace residues of previous trial remaining on the vocal folds. Traver Thick Liquid via small single sip: cup Effortful swallow Trial 4: Result: 3= enters airways/above vocal folds/not ejected Oral Phase Labial Seal: No Labial Escape Tongue Control During Bolus Hold: Posterior escape of greater than half of bolus (pudding) Bolus Transport/Lingual Motion: Repetitive/disorganized tongue motion Oral Residue: Residue collection on oral structures Pharyngeal Phase Initiation of Pharyngeal Swallow: Bolus head at posterior laryngeal surgace of epiglottis Soft Palate Elevation: Escape to nasopharynx Laryngeal Elevation: Partial superior movement thyroid cart/partial apprx aryt- epig petiole Anterior Hyoid Excursion: Partial anterior movement Epiglottic Movement: Partial inversion Laryngeal Vestibule Closure at Height of Swallow: Incomplete; narrow column of air/contrast in laryngeal vestibule Pharyngeal Stripping Wave: Present - diminished Pharyngoesophageal Segment Opening: Parital distension and partial duration; parital obstruction of flow Tongue Base Retraction: Wide column of contrast between tongue base & post. pharyngeal wall Pharyngeal Residue: Collection of residue within or on pharyngeal structures Esophageal Phase Esophageal Clearance: Esophageal retention Diagnosis/Impression Diagnosis: Moderate-severe oropharyngeal dysphagia R13.12 MBS Impressions: The oral phase is primarily marked by... -Did not assess mastication abilities again due to deficits pharyngeal clearance of pudding and concern for increased risk for choking w/ solids; however, pharyngeal clearance has somewhat improved. -Mildly decreased bolus control w/ posterior loss of >1/2 of pudding bolus to the posterior surface of the epiglottis prior to swallow onset. -Continued lingual pumping w/ pudding. The pharyngeal phase is primarily marked by... -Continued decreased pharyngeal motility secondary to poor TB retraction and pharyngeal stripping wave. Mildly thick liquid wash was somewhat effective in clearing these pharyngeal residues. -Continued decreased airway closure secondary to decreased laryngeal elevation and anterior hyoid excursion w/ partial epiglottic inversion; however, improved airway closure w/ mildly thick liquid trials as compared to previous MBSS. SILENT aspiration of thin liquids by cup. Overt aspiration of thin by tsp w/ weak, delayed reflexive cough. Trace post prandial aspiration observed during the MBSS 3X, likely on residues of thin liquid trials. The esophageal phase is marked by... -Mild retention in the upper and lower esophagus. Liquid wash cleared residues of pudding from the lower esophagus. Mild retention of barium remained in the upper esophagus after liquid wash. Recommendations Diet: Mildly Thick Liquids Comment: Patient is safe for any liquids that are mildly/nectar thick - No purees (cream of wheat, oatmeal, yogurt, pudding, or magic cup). Compensatory Strategies: Small Sips (HARD SWALLOWS), Slow Rate (Sips one at a time), Sitting upright and Remain sitting upright for 30 minutes after PO intake Supervision: Distant Supervision Recommend Repeat Modified Barium Swallow: Yes Need for Skilled Speech Therapy Services: Yes Comment: -Continue per TCU dysphagia POC utilizing NMES in junction w/ oropharyngeal exercise and po trials w/ DAMAGE APPRAISER. -Trial puree textures w/ DAMAGE APPRAISER w/ use of multiple, hard swallows and alternating bites and sips 1:1 ratio. Monitor respiratory status closely. If tolerating trials and deemed appropriate by treating DAMAGE APPRAISER, would consider further diet advancement to purees. Education Completed: 1. Described result of evaluation. and 2. Pt understands evaluation & agrees with goals and treatment plan. Status Active ST Patient: Active Contact Information [facility] Speech Therapy:: Latisha Jensen M.A. [facility] APPRAISER Speech-Language Pathologist [facility] [address] [place] [address] [email or web address] [phone]
[2025-06-23 14:00] VITALS: PULSE 89; RESP 16; O2SAT 94
--- NOTE | 2025-06-23 14:36 | NURSING ---
PT HAD BARIUM SWALLOW TEST. NEW DIET ORDER AND DISTANT SUPERVISION. PT HAD HAIR CUT WITH $60 LEFT OVER. GAVE MONEY BACK TO THAT WAS IN MED BOX. ALSO UPDATED FAMILY ON NEW ORDERS.
[2025-06-23 15:00] VITALS: BMI 23.6
--- NOTE | 2025-06-23 16:58 | PN.TCU_ITS ---
Subjective Subjective Resident seen, examined. He is dressed, sitting in chair, no distress. Today, MBS cleared him for clear liquid diet. He has not eaten for 42 days. He is happy, and he is progressing in therapy. I am hopeful he will be able to go back to regular diet, and go home. Objective Data Objective Data Vital Signs: Vital Signs Temp Pulse Resp BP Pulse Ox O2 Del Method O2 Flow Rate 97.6 F L 89 16 106/60 94 Room Air 98 06/23/25 10:51 06/23/25 14:00 06/23/25 14:00 06/23/25 10:51 06/23/25 14:00 06/23/25 14:00 06/01/25 13:16 Oxygen Flow Rate (L/min) 98 Oxygen Delivery Method Room Air Weight: 66.633 kg Body Mass Index (BMI) 23.6 Intake & Output: Intake and Output for Last 24 Hours 06/21/25 06/22/25 06/23/25 23:59 23:59 23:59 Intake Total 750 / 750 420 / 420 Output Total 300 / 300 650 / 650 550 / 550 Balance 450 / 450 -230 / -230 -550 / -550 Medical Nutrition Assessment Dietitian: Malnutrition Criteria Met Start: 05/21/25 14:30 Freq: Status: Active Protocol: Document 06/03/25 09:58 PER (Rec: 06/03/25 09:59 SLA [id number]) Nutrition Malnutrition Evidence of Yes Malnutrition Exists Malnutrition (severe Acute Illness/Injury ): Evidenced By Suboptimal Energy Intake (Severe),Weight Loss (Severe) Intake Problem Increased Nutrient Needs (specify) Etiology protein related to skin status Signs/Symptoms as evidenced by PI neville buttock Status Active Problem Inadequate Oral Intake Etiology related to swallowing difficulty Signs/Symptoms as evidenced by NPO and need for enteral nutrition support Status Active Problem Clinical Problem Acute Disease or Injury Related Malnutrition Etiology severe protein-calorie malnutrition in the context of acute illness and injury related to swallowing difficulty and inadequate energy intake Signs/Symptoms as evidenced by ~10% unintentional weight loss x less than 1 month and oral intake meeting less than 50- 75% estimated nutrition needs; need for enteral nutrition support Status Active Problem Recommendation Dietitian NPO; SENIOR CLIMATE ADVISOR evaluation to assess ability to safely take Recommendations/ oral nutrition. Changes Will change bolus tf to 240 ml Jevity 1.5 w/ 180 ml water flush 5x/day (800, 1100, 1400, 1800, 2200) to provide 1800 randy / 76 gm pro/ 1812 ml free water/day. Rec Khalif bid w/ medpass if warranted to help w/ wound healing. Will monitor TF tolerance, weight and follow-up. Lab / Micro Data 06/18/25 05:16 06/18/25 05:16 Micro: Microbiology 06/18/25 11:20 Urine Catheter - Catheter Urine Culture - Final Culture exhibits no growth. 06/15/25 06:31 Nasal Secretion SARS-CoV-2 Antigen (Rapid) - Final 06/13/25 05:00 Nasal Secretion SARS-CoV-2 Antigen (Rapid) - Final 06/11/25 05:23 Nasal Secretion SARS-CoV-2 Antigen (Rapid) - Final 05/26/25 11:07 Mucosa - Nasopharyngeal Respiratory Panel (PCR) - Final 05/26/25 10:05 Nasal Secretion SARS-CoV-2 Antigen (Rapid) - Final 05/21/25 18:55 Urine Catheter - Catheter Urine Culture - Final Culture exhibits no growth. Physical Exam Const alert General Appearance: cooperative HEENT normocephalic Eyes PERRL and EOMs intact bilaterally Neck supple, no JVD and no carotid bruits Resp normal respiratory effort, normal air movement and clear to auscultation bilaterally Cardio regular rate and regular rhythm GI normal to inspection, nondistended, normoactive bowel sounds, non-tender and non-distended GI Narrative: s/p peg. Extremity normal capillary refill General Extremity: Negative for edema Skin no rashes or lesions noted General Skin Exam: no breakdown Psych affect normal Appearance: appropriate Assessment & Plan Assessment/Plan (1) Debility: (2) Orbital floor fracture: (3) Orbital roof fracture: (4) SDH (subdural hematoma): (5) SAH (subarachnoid hemorrhage): (6) Bilateral pubic rami fractures: (7) Sacral fracture: (8) GERD (gastroesophageal reflux disease): (9) Essential (primary) hypertension: (10) Osteoarthritis: (11) Carotid artery stenosis: (12) Coronary artery disease: (13) TIA (transient ischemic attack): (14) BPH (benign prostatic hyperplasia): (15) Depression: (16) Hyperlipidemia: (17) Dysphagia: PLAN: Plan 89 year old male with below past medical history hospitalized for SDH, SAH, multiple traumatic fractures, complicated by dysphagia requiring dobbhoff TF, admitted to TCU with debility, here for rehabilitation, strengthening, prior to discharge home with . * Debility - PT/OT. * Dysphagia - s/p peg, clear liquid diet today. * Pain - Tylenol 650mg q6, Oxycodone 5mg q4 prn. * Bowel - Miralax 17gm daily, Senokot 1 tablet qhs. * Adult immunization - Administer pneumonia vaccine, covid vaccine, flu vaccine as appropriate. * DVT prophylaxis - Held. * Hypertension - Metoprolol 25mg bid, Lisinopril 40mg daily, Amlodipine 5mg daily. * Coronary artery disease - Metoprolol 25mg bid, Lisinopril 40mg daily, Aspirin 81mg daily. * Vitamin D deficiency - D 125mcg daily. * Vitamin B12 deficiency - B12 1000mcg daily. * Inflammatory polyarthropathy - MTX 20mg qweek, Folic acid 2mg daily. * Nutrition - Jevity 1.5 50ml/hour. * GERD - Lansoprazole 30mg daily. * Macular degeneration - Healthy Eyes 1 capsule daily. * Nausea - Zofran odt 4mg q8 prn. * Hyperlipidemia - Pravastatin 40mg qhs. * BPH - Doxazosin 4mg qhs. * Shortness of breath - Albuterol 2 puffs q4 prn. * Rash - HC topical bid prn. * Diarrhea - Loperamide 2mg q2h prn. * Skin irritation - Calmoseptine topical bid. * Dry Eyes - Artifiical tears 2 gtt q1h prn. The following psychotropic medication was present on admission: Elavil 10mg qhs. Psychotropic medication therapy is indicated for a diagnosis of: Insomnia. Based on my clinical evaluation, continuation of the medication is necessary at this time. Gradual dose reduction plan (select one): ____ GDR will be attempted. Will monitor patient symptoms and behaviors in response to GDR. __x__ GRD contraindicated. 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 The following psychotropic medication was present on admission: Lexapro 5mg daily. Psychotropic medication therapy is indicated for a diagnosis of: Depression. Based on my clinical evaluation, continuation of the medication is necessary at this time. Gradual dose reduction plan (select one): ____ GDR will be attempted. Will monitor patient symptoms and behaviors in response to GDR. __x__ GRD contraindicated. 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
--- NOTE | 2025-06-23 18:30 | NURSING ---
PEG PLACEMENT VERIFIED BY AIR BOLUS,0 RESIDUALS. PEG SITE CLEANED AND NEW DRESSING. NO S/S OF INFECTION OR DRAINAGE. PT TOLERATED WELL.
[2025-06-23 21:58] VITALS: PULSE 72
[2025-06-24] MEDS: Acetaminophen 650 MG/20 ML UDC GT ×4 (05:56→22:51)
[2025-06-24] MEDS: Jevity 1.5. 1,000 ML Bottle 240 ML GT ×5 (06:01→22:35)
[2025-06-24 08:47] VITALS: BP 104/55; PULSE 84; RESP 17; TEMP 36.4; O2SAT 93
[2025-06-24] MEDS: 0.9% Saline Lock 10 ML Syringe IV ×2 (09:35→22:36)
[2025-06-24] MEDS: Multivitamin (Healthy Eyes) Capsule 1 CAP GT (09:35)
[2025-06-24 09:36] VITALS: BP 104/55; PULSE 84
[2025-06-24] MEDS: Cholecalciferol (Vit D3) 125 MCG CAPSULE (5,000 UNITS) GT (09:37)
[2025-06-24 10:00] VITALS: PULSE 85; RESP 17; O2SAT 93
--- NOTE | 2025-06-24 14:05 | NURSING ---
no residual noted, tolerated feed well.
--- NOTE | 2025-06-24 19:10 | NURSING ---
no residual noted
[2025-06-24 22:21] VITALS: BP 124/65; PULSE 79
[2025-06-24 22:35] VITALS: PULSE 79
[2025-06-25] MEDS: Jevity 1.5. 1,000 ML Bottle 240 ML GT ×4 (06:12→22:57)
[2025-06-25] MEDS: Acetaminophen 650 MG/20 ML UDC GT ×4 (06:12→22:57)
[2025-06-25] MEDS: 0.9% Saline Lock 10 ML Syringe IV ×2 (06:30→22:40)
--- NOTE | 2025-06-25 06:57 | NURSING ---
Written communication left for Dr. Wiggins regarding discontinuing primo fit order @ .
[2025-06-25 10:28] VITALS: BP 114/60; PULSE 85; RESP 16; TEMP 36.3; O2SAT 95
[2025-06-25] MEDS: Multivitamin (Healthy Eyes) Capsule 1 CAP GT (10:33)
[2025-06-25 10:35] VITALS: PULSE 85
[2025-06-25] MEDS: Cholecalciferol (Vit D3) 125 MCG CAPSULE (5,000 UNITS) GT (10:36)
[2025-06-25 20:06] VITALS: PULSE 75; RESP 16; O2SAT 96
[2025-06-25 22:38] VITALS: BP 129/60; PULSE 77
[2025-06-25 22:40] VITALS: PULSE 77
--- NOTE | 2025-06-26 03:25 | NURSING ---
Written communication left for Dr. Wiggins regarding 2+ pitting edema to neville. feet. neville. lungs clear all lobes anterior/posterior. Pt has been refusing ray wraps to neville. feet.
[2025-06-26] MEDS: Acetaminophen 650 MG/20 ML UDC GT ×4 (05:49→21:47)
[2025-06-26] MEDS: Jevity 1.5. 1,000 ML Bottle 240 ML GT ×3 (05:50→17:34)
--- NOTE | 2025-06-26 06:42 | NURSING ---
No residual noted this am before bolus feeding given. Pt tolerated feeding well.
[2025-06-26 06:59] VITALS: PULSE 82; RESP 16; O2SAT 96
--- NOTE | 2025-06-26 07:00 | NURSING ---
PEG site dressing changed per order
[2025-06-26 09:03] VITALS: BP 103/50; PULSE 85; RESP 16; TEMP 36.5; O2SAT 92
[2025-06-26] MEDS: Multivitamin (Healthy Eyes) Capsule 1 CAP GT (09:09)
[2025-06-26 09:10] VITALS: PULSE 85
[2025-06-26] MEDS: Cholecalciferol (Vit D3) 125 MCG CAPSULE (5,000 UNITS) GT (09:11)
[2025-06-26] MEDS: 0.9% Saline Lock 10 ML Syringe IV (09:22)
--- NOTE | 2025-06-26 15:40 | CASEMGMT ---
Social Work SW completed BIMS () and PHQ-2 () for MDS assessment. Alondra Rutherford LEADERSHIP PROGRAM ASSOCIATE LICENSED APPRAISER
--- NOTE | 2025-06-26 18:54 | NURSING ---
pt states he has not been able to void since this morning- this nurse encouraged fluids . Daughter at bedside and said she would encourage fluids during dinner. This nurse went to follow-up. pt states he has not tried to go to the bathroom. this nurse assisted pt to bathroom. pt was able to void and have bowel movement. this nurse placed urinal at bedside and explained to pt we would track output. pt expressed concern about being able to use the urinal. this nurse explained he can call for assistance any time. pt said he would try
[2025-06-26 21:45] VITALS: PULSE 77
[2025-06-27] MEDS: Acetaminophen 650 MG/20 ML UDC GT ×4 (05:56→22:04)
[2025-06-27] MEDS: Jevity 1.5. 1,000 ML Bottle 240 ML GT ×4 (06:03→18:18)
[2025-06-27 10:34] VITALS: BP 110/58; PULSE 85; RESP 18; TEMP 36.4; O2SAT 95
[2025-06-27] MEDS: Multivitamin (Healthy Eyes) Capsule 1 CAP GT (10:37)
[2025-06-27 10:39] VITALS: BP 110/58; PULSE 85
[2025-06-27] MEDS: Cholecalciferol (Vit D3) 125 MCG CAPSULE (5,000 UNITS) GT (10:40)
[2025-06-27] MEDS: 0.9% Saline Lock 10 ML Syringe IV (10:43)
--- NOTE | 2025-06-27 11:36 | NURSING ---
no residual noted with tube feed
--- NOTE | 2025-06-27 14:43 | NURSING ---
no residual noted with feed and medication administration
[2025-06-27 22:03] VITALS: PULSE 78
[2025-06-28] MEDS: Acetaminophen 650 MG/20 ML UDC GT ×4 (05:02→21:46)
[2025-06-28] MEDS: Jevity 1.5. 1,000 ML Bottle 240 ML GT ×4 (05:12→18:07)
[2025-06-28 10:37] VITALS: BP 113/53; PULSE 74; RESP 18; TEMP 36.1; O2SAT 97
[2025-06-28] MEDS: Multivitamin (Healthy Eyes) Capsule 1 CAP GT (10:40)
[2025-06-28 10:42] VITALS: BP 113/53; PULSE 74
[2025-06-28] MEDS: Cholecalciferol (Vit D3) 125 MCG CAPSULE (5,000 UNITS) GT (10:43)
--- NOTE | 2025-06-28 10:45 | NURSING ---
no residual noted with tube feed, meds and jevity tolerated well
[2025-06-28] MEDS: 0.9% Saline Lock 10 ML Syringe IV (14:03)
--- NOTE | 2025-06-28 18:10 | NURSING ---
no residual noted with tube feed
--- NOTE | 2025-06-28 18:50 | RAD_ITS ---
PROCEDURE: ABDOMEN SINGLE VIEW 06/28/2025 REASON FOR EXAM: INCREASE DIARRHEA TECHNIQUE: Procedure Code: RADABD Modality: DX Procedure: ABDOMEN SINGLE VIEW COMPARISON: None FINDINGS: Limitations: Evaluation for free intraperitoneal air and bowel air-fluid levels is suboptimal without upright views. Gastrointestinal: A catheter is seen overlying the left upper quadrant, possibly a percutaneous gastrostomy tube. Location of percutaneous gastrostomy tube can not be confirmed by these views. Visualized bowel gas pattern is nonspecific. Gas and stool filled loops of bowel seen overlying the abdomen and pelvis. No significant asymmetric small bowel gaseous distention to suggest a complete obstruction. If intra-abdominal inflammatory or infectious changes are suspected, further evaluation by contrast-enhanced CT is advised. Diaphragm: The right hemidiaphragm is elevated compared to the left of indeterminate significance. Lung bases: No consolidation or effusion at the visualized lung bases. Osseous: Scoliosis and severe degenerative change of the lumbar spine. Severe osteoarthritic change of the right hip. Left hip replacement extending below the level of imaging. Vascular: Extensive vascular calcifications noted. Soft tissue: Soft tissue abnormality is not reliably assessed by this technique. RAD/Abdomen Single View IMPRESSION: Nonspecific findings. - Findings, limitations and recommendations discussed above. Reading Location: [id number]
[2025-06-28 21:44] VITALS: PULSE 72
[2025-06-29] MEDS: Acetaminophen 650 MG/20 ML UDC GT ×4 (05:21→23:00)
[2025-06-29] MEDS: Jevity 1.5. 1,000 ML Bottle 240 ML GT ×5 (05:21→22:07)
--- NOTE | 2025-06-29 09:18 | NURSING ---
pt walked from dining room back to his room, pulse ox monitored, 94 @ rest before walking, 92 while walking, and then once placed in bed and situated pt 02 reading was 88 on room air. 2L O2 applied NC
[2025-06-29 10:38] VITALS: BP 116/49; PULSE 77; RESP 18; TEMP 36.3; O2SAT 97
[2025-06-29] MEDS: Multivitamin (Healthy Eyes) Capsule 1 CAP GT (10:41)
[2025-06-29 10:42] VITALS: BP 116/49; PULSE 77
[2025-06-29] MEDS: Cholecalciferol (Vit D3) 125 MCG CAPSULE (5,000 UNITS) GT (10:42)
[2025-06-29 21:57] VITALS: BP 135/64; PULSE 73
[2025-06-29 22:05] VITALS: BP 135/64; PULSE 73
[2025-06-29] MEDS: 0.9% Saline Lock 10 ML Syringe IV (22:26)
[2025-06-29 22:55] VITALS: PULSE 73; RESP 16; O2SAT 94
[2025-06-30] MEDS: Acetaminophen 650 MG/20 ML UDC GT ×4 (05:13→22:03)
[2025-06-30] MEDS: Jevity 1.5. 1,000 ML Bottle 240 ML GT ×4 (05:16→22:02)
[2025-06-30 05:30] VITALS: RESP 16
--- NOTE | 2025-06-30 07:45 | MDS.RN ---
Information for the MDS was obtained from review of the clinical record, interview of resident, staff, and direct observation of resident?s care.
[2025-06-30] MEDS: Multivitamin (Healthy Eyes) Capsule 1 CAP GT (09:25)
[2025-06-30 09:26] VITALS: BP 102/55; PULSE 75
[2025-06-30] MEDS: Cholecalciferol (Vit D3) 125 MCG CAPSULE (5,000 UNITS) GT (09:27)
[2025-06-30 09:56] VITALS: BP 102/55; PULSE 75; RESP 16; TEMP 36.3; O2SAT 94
--- NOTE | 2025-06-30 09:56 | NURSING ---
SPEECH THERAPY IN ROOM AND INSTRUCTED THIS NURSE TO GIVE PT MEDS CRUSHED IN APPLE SAUCE PO TO SEE HOW PT DOES ON SWALLOWING. PT DID WELL,SPEECH STATED SHE WOULD PUT NEW ORDERS IN AND TALK TO DIETARY. THIS NURSE PRECEDED TO GIVE PT HIS JEVITY ORDERED. PT STOPPED THIS NURSE AFTER 120ML OF JEVITY STATED HE WAS FILLING A LITTLE FULL SENSE HE HAD BREAKFAST. PT DID TAKE ALL OF THE FLUSH. RN AWARE.
[2025-06-30] MEDS: 0.9% Saline Lock 10 ML Syringe IV ×2 (11:30→22:19)
[2025-06-30 14:47] VITALS: BMI 23.8
--- NOTE | 2025-06-30 18:30 | NURSING ---
PT TOOK ONLY HALF OF HIS JEVITY AT 10AM AND REFUSED THE JEVITY AT 1800 STATING HE WAS TO FULL. PT HAD 30 RESIDUAL AT 10AM AFTER BREAKFAST. PEG PLACEMENT VERIFIED BY AIR BOLUS,0 RESIDUAL AT 1400. PT TOLERATED ALL WELL.
[2025-06-30 21:31] VITALS: BP 136/71; PULSE 78
[2025-06-30 21:41] VITALS: BP 136/71; PULSE 78
--- NOTE | 2025-06-30 22:04 | NURSING ---
Per patient's request, only 120ml administered for KIKA 2200 Jevity 1.5 dose d/t feeling full. 0ml Residual of gastric content. Patient tolerated 120ml jevity plus flush well. Patient also requested KIKA 0000 Tylenol dose be administered at this time. Per his request, medications administered at this time.
[2025-07-01] MEDS: Acetaminophen 650 MG/20 ML UDC GT ×3 (05:32→17:09)
[2025-07-01] MEDS: Jevity 1.5. 1,000 ML Bottle 240 ML GT (05:33)
[2025-07-01] MEDS: Multivitamin (Healthy Eyes) Capsule 1 CAP GT (08:57)
[2025-07-01] MEDS: Cholecalciferol (Vit D3) 125 MCG CAPSULE (5,000 UNITS) GT (08:59)
[2025-07-01 09:10] VITALS: BP 99/55; PULSE 83; RESP 16; TEMP 36.6; O2SAT 92
[2025-07-01] MEDS: 0.9% Saline Lock 10 ML Syringe IV (09:13)
[2025-07-01 10:36] VITALS: BP 102/54; PULSE 78
[2025-07-01 10:43] VITALS: BP 102/54; PULSE 78
[2025-07-01 22:00] VITALS: BP 132/64; PULSE 71; PULSE 76; RESP 16
[2025-07-01 22:11] VITALS: BP 132/64; PULSE 76
--- NOTE | 2025-07-01 22:37 | NURSING ---
Patient denies need for KIKA 2200 Jevity 1.5 tonight. Patient feels he is getting enough nutrition and is full this evening from meals today. Jevity 1.5 marked as patient refused on eMAR. Patient also spoke with this nurse regarding KIKA tylenol. Per patient, he takes tylenol TID at home and does not feel he needs it KIKA Q6H as it is ordered now. 0000 KIKA Tylenol dose marked as patient refused. Written communication left for Dr. Wiggins regarding patient's request to change tylenol to KIKA Q8H. 0ml residual of gastric content. PEG flushed per protocol, tube is patent. Patient denies further assistance at this time. Call light in reach. Patient thanked this nurse upon exiting the room.
[2025-07-02 02:07] VITALS: PULSE 80; RESP 16; O2SAT 94
[2025-07-02] MEDS: Acetaminophen 650 MG/20 ML UDC GT (05:10)
[2025-07-02 10:52] VITALS: BP 121/62; PULSE 77; RESP 17; TEMP 36.6
[2025-07-02] MEDS: Multivitamin (Healthy Eyes) Capsule 1 CAP GT (10:56)
[2025-07-02 10:57] VITALS: PULSE 77
[2025-07-02] MEDS: Cholecalciferol (Vit D3) 125 MCG CAPSULE (5,000 UNITS) GT (10:58)
[2025-07-02] MEDS: Acetaminophen 650 MG/20 ML UDC 1000 MG PO ×2 (15:23→20:25)
[2025-07-02 20:24] VITALS: BP 113/59; PULSE 77
[2025-07-02] MEDS: Jevity 1.5. 1,000 ML Bottle 240 ML GT (21:28)
[2025-07-03] MEDS: Acetaminophen 650 MG/20 ML UDC 1000 MG PO ×3 (05:49→22:53)
[2025-07-03] MEDS: Multivitamin (Healthy Eyes) Capsule 1 CAP PO (09:59)
[2025-07-03 10:00] VITALS: PULSE 77; RESP 18; O2SAT 97
[2025-07-03 10:01] VITALS: BP 103/54; PULSE 77
[2025-07-03] MEDS: Cholecalciferol (Vit D3) 125 MCG CAPSULE (5,000 UNITS) PO (10:02)
[2025-07-03 10:26] VITALS: BP 145/69; PULSE 77; RESP 16; TEMP 36.5; O2SAT 96
[2025-07-03] MEDS: 0.9% Saline Lock 10 ML Syringe IV (14:06)
--- NOTE | 2025-07-03 18:27 | NURSING ---
Addendum entered by Paulino Vu 07/03/25 18:47: PT FAMILY UPDATED ON NEW ORDER Original Note: PT ATE 50% FOR ALL MEALS AND UPGRADED TO MINCED/MOIST. PEG SITE CLEANED AND NEW DRESSING. NO REDNESS/DRAINAGE OR S/S OF INFECTION.
[2025-07-03 22:51] VITALS: BP 143/73; PULSE 76
[2025-07-03] MEDS: Senna Tablet 1 TABLET PO (22:53)
[2025-07-03] MEDS: Jevity 1.5. 1,000 ML Bottle 240 ML GT (22:55)
[2025-07-04 06:17] VITALS: PULSE 74; RESP 16; O2SAT 97
[2025-07-04] MEDS: Acetaminophen 650 MG/20 ML UDC 1000 MG PO ×3 (06:27→22:47)
[2025-07-04] MEDS: Multivitamin (Healthy Eyes) Capsule 1 CAP PO (12:09)
[2025-07-04 12:10] VITALS: BP 115/49; PULSE 88
[2025-07-04] MEDS: Cholecalciferol (Vit D3) 125 MCG CAPSULE (5,000 UNITS) PO (12:11)
[2025-07-04] MEDS: 0.9% Saline Lock 10 ML Syringe IV (18:23)
[2025-07-04 22:46] VITALS: BP 132/69; PULSE 79
[2025-07-04] MEDS: Senna Tablet 1 TABLET PO (22:46)
[2025-07-04] MEDS: Jevity 1.5. 1,000 ML Bottle 240 ML GT (22:47)
[2025-07-05] MEDS: Acetaminophen 650 MG/20 ML UDC 1000 MG PO (06:38)
[2025-07-05 10:00] VITALS: PULSE 74; RESP 17; O2SAT 97
[2025-07-05 11:00] VITALS: BP 113/57; PULSE 75
[2025-07-05] MEDS: Multivitamin (Healthy Eyes) Capsule 1 CAP PO (11:00)
[2025-07-05] MEDS: Cholecalciferol (Vit D3) 125 MCG CAPSULE (5,000 UNITS) PO (11:01)
[2025-07-05] MEDS: Polyethylene Glycol 3350 17 GM PACKET PO (11:01)
[2025-07-05] MEDS: 0.9% Saline Lock 10 ML Syringe IV (11:13)
[2025-07-05] MEDS: Senna Tablet 1 TABLET PO (21:08)
[2025-07-05 21:09] VITALS: BP 119/61; PULSE 79
[2025-07-05] MEDS: Jevity 1.5. 1,000 ML Bottle 240 ML GT (21:11)
[2025-07-06 06:23] VITALS: PULSE 79; RESP 16; O2SAT 94
--- NOTE | 2025-07-06 07:03 | NURSING ---
Dressing changed to PICC in YULIA. Patient tolerated well.
[2025-07-06] MEDS: Multivitamin (Healthy Eyes) Capsule 1 CAP PO (09:34)
[2025-07-06 09:35] VITALS: PULSE 78
[2025-07-06] MEDS: Cholecalciferol (Vit D3) 125 MCG CAPSULE (5,000 UNITS) PO (09:36)
[2025-07-06 14:33] VITALS: BP 90/48; PULSE 64; RESP 14; TEMP 36.3; O2SAT 100
[2025-07-06 22:25] VITALS: BP 133/64; PULSE 80; RESP 16; O2SAT 97
[2025-07-06] MEDS: 0.9% Saline Lock 10 ML Syringe IV (22:25)
[2025-07-06 22:28] VITALS: BP 133/64; PULSE 80
[2025-07-06] MEDS: Senna Tablet 1 TABLET PO (22:36)
[2025-07-06] MEDS: Jevity 1.5. 1,000 ML Bottle 240 ML GT (23:02)
[2025-07-07] MEDS: Multivitamin (Healthy Eyes) Capsule 1 CAP PO (09:16)
[2025-07-07 09:17] VITALS: BP 103/58; PULSE 83
[2025-07-07] MEDS: Cholecalciferol (Vit D3) 125 MCG CAPSULE (5,000 UNITS) PO (09:18)
[2025-07-07 09:27] VITALS: BP 103/58; PULSE 83; RESP 16; TEMP 36.4
--- NOTE | 2025-07-07 11:53 | SP.MBSS_ITS ---
Modified Barium Swallow Patient Information Study Date: 07/07/25 Study Time: 14:00 Direct Billable Minutes: 84 Total Minutes procedure & reportin Diagnosis: Dysphagia R13.10 Referring Physician: Jesus Alberto Wiggins Chi Reason for Referral: Re-assess swallow function and risk for aspiration to determine if patient is safe for further diet advancement. 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 Injuries:?1. Right orbital floor. 2. Buckle fracture right anterior cranial floor/orbital roof. 3. Small right subdural hematoma. 4. Trace right frontal SAH.?5. Bilateral pubic rami fracture with extension to acetabular wall.?6. Nondisplaced Sacral ala fracture right. Incidental findings:?1. AAA 4.7cm.?2. Left common iliac aneurysm..?3. Right common iliac aneurysm. During his hospitalization 05/10/25-05/20/25 he was also diagnosed with severe oropharyngeal dysphagia with recommendation for NPO. A Dobhoff was placed 05/14/25 after MBSS revealed severe oropharyngeal dysphagia w/ silent aspiration of all liquid consistencies. Other noted concerns from MBSS were severe cervical lordosis, delayed initiation of the pharyngeal swallow, incomplete airway closure, reduced pharyngeal constriction, reduced UES opening/duration, and ineffective cued coughs. Admitted to [facility] 05/20/[address], OT, PT prior to discharge home w/ . ?ST evaluation 05/21/2025 recommended NPO. 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 The patient participated in 10 dysphagia therapy sessions w/ oropharyngeal strengthening in junction w/ NMES, as well as thin water trials w/ BARREL RIB MATTING MACHINE OPERATOR and vocal adduction exercises. Repeat MBSS 06/15/2025 revealed moderate- severe oropharyngeal dysphagia and esophageal dysphagia w/ recommendations for NPO, Ok for trials of puree and mildly thick liquids w/ BARREL RIB MATTING MACHINE OPERATOR only. Recommend tsp bites of puree consistencies w/ use of effortful, multiple swallows. Recommend tsp sips of mildly thick liquids w/ use of effortful, multiple swallow and cough/throat clear and re-swallow w/ each sip. Pt was recommended for GI consult, as well. Per treating BARREL RIB MATTING MACHINE OPERATOR, the patient has tolerated sips of mildly thick liquids via tsp and cup w/o need for cough and re-swallow; however, pudding trials have been difficult for the patient. He underwent EGD 06/17/2025, which revealed abnormal esophageal motility, established achalasia. Dilated. Injected with botulinum toxin. BARREL RIB MATTING MACHINE OPERATOR clarified w/ Dr. Ferrara re: site of botox injection and dilation via Backline. He reported pt had dilation of UES and LES, as well as botox injection at the UES. MBSS repeated 06/23/2025, which recommended advancement to mildly thickened liquids. With further dysphagia treatment, he advanced to minced and moist textures / mildly thick liquid w/ use of 1 bite at a time, double hard swallow and liquid wash after each bite. PMH: Dysphagia, HLD, Depression, BPH, TIA, CAD, Carotid artery stenosis, Osteoarthritis, HTN, GERD, Sacral fracture, Bilateral pubic rami fractures, SAH, SDH, Orbital roof fracture, Orbital floor fracture, Debility. Current Diet Ordered: Minced and moist textures / Mildly thick liquids Dentition: Natural Teeth and Missing Teeth Mental Status: Impaired (Per MoCA on initial evaluation. Did not impact exam.) Respiratory Status: Oxygenating on Room Air Penetration-Aspiration Scale Penetration-Aspiration Scale: OBJECTIVE ASSESSMENT OF SWALLOW FUNCTION (QUANTITATIVE ? PER TRIAL): PENETRATION / ASPIRATION SCALE (VARGAS): 1 = does not enter airway 2 = enters airway/above vocal folds/ejected 3 = enters airway/above vocal folds/not ejected 4 = enters airway/contacts vocal folds/ejected 5 = enters airway/contacts vocal folds/not ejected 6 = enters airway/below vocal folds/ejected 7 = enters airway/below vocal folds/not ejected despite effort 8 = enters airway/below vocal folds/no effort VIDEOFLOROSCOPIC SCALE SCORE (VARGAS): Grade I = aspiration of material that has penetrated into the laryngeal vestibule, intact cough reflex Grade II = aspiration < 10 % of the bolus, intact cough reflex Grade III = aspiration of < 10 % of the bolus, reduced cough reflex or aspiration of > 10 % of the bolus, intact cough reflex Grade IV = aspiration of > 10 % of the bolus, reduced cough reflex Penetration-Aspiration Scale Score [place] Thick Liquid via teaspoon: Result: 2= enter airway/above vocal folds/ejected [place] Thick Liquid via small single sip: cup: Result: 2= enter airway/above vocal folds/ejected Thin Liquid via teaspoon: Result: 2= enter airway/above vocal folds/ejected Thin Liquid via teaspoon Trial 2: Result: 7= enters airways/below vocal folds/not ejected despite effort Comment: Delayed reflexive cough = somewhat effective. Thin Liquid via teaspoon Effortful swallow: Result: 8= enters airway/below vocal folds/no effort Thin Liquid via teaspoon Chin tuck: Result: 8= enters airway/below vocal folds/no effort Thin Liquid via teaspoon Supraglottic swallow: Result: 5= enters airways/contacts vocal folds/not ejected Comment: Trace liquid resides remained in the laryngeal vestibule after this swallow. Pudding via 1/2 teaspoon: Result: 2= enter airway/above vocal folds/ejected Pudding via teaspoon: Result: 2= enter airway/above vocal folds/ejected [place] Thick Liquid via small single sip: cup Trial 2: Result: 2= enter airway/above vocal folds/ejected 1/4 Cookie: Result: 2= enter airway/above vocal folds/ejected Comment: Silent post prandial aspiration, likely of trace residues that remained in the laryngeal vestibule from thin liquid trials. [place] Thick Liquid via small single sip: cup Trial 3: Result: 2= enter airway/above vocal folds/ejected Oral Phase Labial Seal: No Labial Escape Tongue Control During Bolus Hold: Posterior escape of greater than half of bolus Bolus Preparation/Mastication: Slow prolonged chewing/mashing with complete recollection Bolus Transport/Lingual Motion: Repetitive/disorganized tongue motion Oral Residue: Residue collection on oral structures Pharyngeal Phase Initiation of Pharyngeal Swallow: Bolus head in pyriforms Soft Palate Elevation: Escape to nasopharynx Laryngeal Elevation: Partial superior movement thyroid cart/partial apprx aryt- epig petiole Anterior Hyoid Excursion: Partial anterior movement Epiglottic Movement: Partial inversion Laryngeal Vestibule Closure at Height of Swallow: Incomplete; narrow column of air/contrast in laryngeal vestibule Pharyngeal Stripping Wave: Present - diminished Pharyngoesophageal Segment Opening: Minimal distension and minimal duration; marked obstruction of flow (~50% of tsp of pudding and 1/4 cookie cleared through the UES on the first swallow) Tongue Base Retraction: Wide column of contrast between tongue base & post. pharyngeal wall Pharyngeal Residue: Majority of contrast within or on pharyngeal structures (~50% of tsp of pudding and 1/4 cookie remained in the pharynx after the first swallow) Diagnosis/Impression Diagnosis: Moderate oropharyngeal dysphagia R13.12 MBS Impressions: The oral phase is primarily marked by... -Decreased bolus control w/ posterior loss of >1/2 of mildly/nectar thick liquids by tsp to the pyriform sinuses prior to swallow onset. -Continued lingual pumping w/ A-P transport. -Slowed, but complete mastication of cookie. Did not have fluoroscopy on for duration of chewing to minimize time w/ fluoroscopy as this is the patient's third recent MBSS. The pharyngeal phase is primarily marked by... -Continued decreased pharyngeal motility due to decreased TB retraction and pharyngeal stripping wave. ~50% of tsp of pudding and 1/4 of cookie remained in the pharynx after the first swallows. Multiple swallows and liquid washes were mostly effective in clearing pharyngeal residues of pudding and cookie. -Continued decreased airway closure secondary to decreased laryngeal elevation and anterior hyoid excursion w/ partial epiglottic inversion. -Improved PAS scoring w/ mildly/nectar thick liquids as compared to previous MBSS. SILENT aspiration of thin liquids by tsp w/ effortful swallow and thin liquids by tsp w/ chin tuck. Overt aspiration of thin by tsp 1X w/ weak, delayed reflexive cough. Trace post prandial aspiration observed during the MBSS 1X, likely on residues of thin liquid trials. Recommendations Diet: Minced and Moist Textures and Mildly Thick Liquids Compensatory Strategies: Small Bites, Small Sips, Slow Rate, Multiple Swallows, Alternate bites/solids and sips/liquids (Take a sip after each bite), Sitting upright and Remain sitting upright for 30 minutes after PO intake Supervision: Distant Supervision Recommend Repeat Modified Barium Swallow: Yes (After 4-8 weeks of continued oropharyngeal strengthening. Could consider assessment via FEES due to pt already participating in 3 MBSS during this hospital stay. Will recommend instrumental assessment prior to advancement of liquid due to silent nature of aspiration.) Need for Skilled Speech Therapy Services: Yes Comment: Continue per TCU dysphagia POC. Will recommend skilled meal analysis of soft and bite size textures w/ treating BARREL RIB MATTING MACHINE OPERATOR to consider further diet advancement of solids. Education Completed: 1. Described result of evaluation. and 2. Pt understands evaluation & agrees with goals and treatment plan. Status Active ST Patient: Active Contact Information [facility] Speech Therapy:: Latisha Jensen M.A. [facility]-BARREL RIB MATTING MACHINE OPERATOR Speech-Language Pathologist [facility] [address] [place] [address] [email or web address] [phone]
[2025-07-07 13:00] VITALS: PULSE 83; RESP 16; O2SAT 96
[2025-07-07] MEDS: 0.9% Saline Lock 10 ML Syringe IV ×2 (13:35→22:49)
[2025-07-07 14:00] VITALS: BMI 23.7
--- NOTE | 2025-07-07 14:21 | NURSING ---
PT LEFT FLOOR BY WHEEL CHAIR AT 1410 FOR A COOKIE SWALLOW. FAMILY AWARE
--- NOTE | 2025-07-07 15:03 | NURSING ---
PT RETURNED TO FLOOR AT 1430 FROM COOKIE SWALLOW. SEE REPORT.
[2025-07-07 20:35] VITALS: BP 145/70; PULSE 84
[2025-07-07] MEDS: Senna Tablet 1 TABLET PO (20:36)
[2025-07-07 20:37] VITALS: BP 145/70; PULSE 84
[2025-07-07] MEDS: Jevity 1.5. 1,000 ML Bottle 240 ML GT (22:49)
[2025-07-08 08:21] VITALS: BP 105/53; PULSE 83; RESP 18; TEMP 36.3; O2SAT 94
[2025-07-08 08:25] VITALS: PULSE 83
[2025-07-08] MEDS: Cholecalciferol (Vit D3) 125 MCG CAPSULE (5,000 UNITS) PO (08:25)
[2025-07-08] MEDS: Multivitamin (Healthy Eyes) Capsule 1 CAP PO (08:25)
[2025-07-08 10:00] LABS: Hematocrit 33.0 % (40-54); Hemoglobin 10.9 g/dL (13.0-16.5); Immature Granulocytes Count 0.060 X10^3/uL (0.0-0.0); Mean Corp Hgb Conc 33.0 g/dL (32-36); Mean Corpuscular Volume 97.1 fL (80-94); Mean Platelet Vol. 8.9 fl (6.2-12.0); NRBC Flagged by Analyzer 0 % (0-5); Platelet Count 269 K/mm3 (150-450); RBC Distribution Width CV 13.4 % (11.6-14.6); RBC Distribution Width SD 47.8 fl (35.1-43.9); Red Blood Count 3.40 M/mm3 (4.6-6.2); White Blood Count 7.8 K/mm3 (4.4-11.0)
[2025-07-08 10:48] LABS: Anion Gap 12 (5-15); BUN 29 mg/dL (4-19); BUN/Creat Ratio 34.3 RATIO (10-20); Calcium,Total 8.9 mg/dL (7.6-11.0); Carbon Dioxide 22.3 mmol/L (21.0-32.0); Chloride 102 mmol/L (98-108); Estimated Creatinine Clearance 53.17 ml/min (50-250); Glucose 96 mg/dL (70-99); Potassium 4.8 mmol/L (3.3-5.1)
[2025-07-08 21:33] VITALS: BP 115/60; PULSE 79
[2025-07-08] MEDS: Senna Tablet 1 TABLET PO (21:33)
[2025-07-08 21:35] VITALS: BP 115/60; PULSE 79
[2025-07-08] MEDS: Jevity 1.5. 1,000 ML Bottle 240 ML GT (21:47)
[2025-07-08] MEDS: 0.9% Saline Lock 10 ML Syringe IV (22:00)
--- NOTE | 2025-07-08 23:40 | NURSING ---
20ml residual of gastric content from PEG this HS. PEG flushed per protocol. Patient tolerated 120ml of Jevity 1.5 supplement before feeling full for 2200 KIKA dose. Patient has been eating well during the day with meals and has not needed Jevity supplement with his meals. Patient feels his oral intake during meals is adequate nutrition.
[2025-07-09] MEDS: Multivitamin (Healthy Eyes) Capsule 1 CAP PO (08:35)
[2025-07-09 08:37] VITALS: BP 105/52; PULSE 83
[2025-07-09] MEDS: Cholecalciferol (Vit D3) 125 MCG CAPSULE (5,000 UNITS) PO (08:37)
[2025-07-09 15:54] VITALS: BP 111/61; PULSE 61; RESP 16; TEMP 36.6; O2SAT 98
[2025-07-09 21:31] VITALS: PULSE 70
[2025-07-09] MEDS: Jevity 1.5. 1,000 ML Bottle 240 ML GT (21:43)
[2025-07-10 10:00] VITALS: PULSE 82; RESP 18; O2SAT 93
[2025-07-10 10:08] VITALS: BP 95/48; PULSE 84; RESP 18; TEMP 36.4; O2SAT 93
[2025-07-10] MEDS: Multivitamin (Healthy Eyes) Capsule 1 CAP PO (10:13)
[2025-07-10 10:14] VITALS: BP 95/48; PULSE 84
[2025-07-10] MEDS: Cholecalciferol (Vit D3) 125 MCG CAPSULE (5,000 UNITS) PO (10:15)
[2025-07-10] MEDS: 0.9% Saline Lock 10 ML Syringe IV (10:23)
[2025-07-10] MEDS: Polyethylene Glycol 3350 17 GM PACKET PO (10:25)
--- NOTE | 2025-07-10 14:54 | CASEMGMT ---
Addendum entered by Alondra Rutherford 07/13/25 12:17: SW spoke with pt to inform him [facility] can accept. [facility] did not provide a response. Pt agreeable to [facility]. Educated [facility]HC will contact pt 2-3 days after DC after PCP signs orders, to schedule SOC. Pt also requesting FWW at DC. SW to coordinate. - SW sent referral to [facility] via [facility]. Original Note: Social Work SW met with patient, and additional family members at bedside to discuss DC. Pt requesting to DC 07/16. IDT agreeable. Pt reviewed HHC list and requesting [facility] or [facility]. Pt denied DME needs. Family to transport at DC. - SW sent referral to [facility] agencies via [employer]. Plan: DC home with 07/16, HHC PT/OT/ST Alondra Rutherford [employer] MANAGER
--- NOTE | 2025-07-10 15:03 | DS.PCM_ITS ---
Providers Date of Admission: 05/20/25 Primary Care Physician: Dr. 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/gaming dealer Routine Comment: Reason for Consult:: open areas to b/l buttocks upon admit to TCU Comments:: currently ordered kim 05/25/25 06:00 Consult: Gastroenterology Routine Consulting Provider: Pankaj G[facility] Reason for Consult: PEG tube placement EMERGENT Consult: Yes MD Notified: Yes Date Notified: 05/25/25 Time Notified: 04:02 Method of Notification: Text Reason For Visit: SAH, FALL, MULTIPLE FX Diagnosis Discharge Diagnosis (1) Debility: Status: Acute Code(s): R53.81 - Other malaise (2) Orbital floor fracture: Status: Acute Code(s): S02.30XA - Fracture of orbital floor, unspecified side, initial encounter for closed fracture (3) Orbital roof fracture: Status: Acute Code(s): S02.129A - Fracture of orbital roof, unspecified side, initial encounter for closed fracture (4) SDH (subdural hematoma): Status: Acute Code(s): S06.5XAA - Traumatic subdural hemorrhage with loss of consciousness status unknown, initial encounter (5) SAH (subarachnoid hemorrhage): Status: Acute Code(s): I60.9 - Nontraumatic subarachnoid hemorrhage, unspecified (6) Bilateral pubic rami fractures: Status: Acute Code(s): S32.591A - Other specified fracture of right pubis, initial encounter for closed fracture; S32.592A - Other specified fracture of left pubis, initial encounter for closed fracture (7) Sacral fracture: Status: Acute Code(s): S32.10XA - Unspecified fracture of sacrum, initial encounter for closed fracture (8) GERD (gastroesophageal reflux disease): Status: Acute Code(s): K21.9 - Gastro-esophageal reflux disease without esophagitis (9) Essential (primary) hypertension: Status: Acute Code(s): I10 - Essential (primary) hypertension (10) Osteoarthritis: Status: Acute Code(s): M19.90 - Unspecified osteoarthritis, unspecified site (11) Carotid artery stenosis: Status: Acute Code(s): I65.29 - Occlusion and stenosis of unspecified carotid artery (12) Coronary artery disease: Status: Acute Code(s): I25.10 - Atherosclerotic heart disease of k[place] coronary artery without angina pectoris (13) TIA (transient ischemic attack): Status: Acute Code(s): G45.9 - Transient cerebral ischemic attack, unspecified (14) BPH (benign prostatic hyperplasia): Status: Acute Code(s): N40.0 - Benign prostatic 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 lower urinary tract symptoms (15) Depression: Status: Acute Code(s): F32.A - Depression, unspecified (16) Hyperlipidemia: Status: Acute Code(s): E78.5 - Hyperlipidemia, unspecified (17) Dysphagia: Status: Acute Code(s): R13.10 - Dysphagia, unspecified Plan 89 year old male with below past medical history hospitalized for SDH, SAH, multiple traumatic fractures, complicated by dysphagia requiring dobbhoff TF, admitted to TCU with debility, here for rehabilitation, strengthening, prior to discharge home with . * Debility - PT/OT. * Dysphagia - s/p peg, clear liquid diet today. * Pain - Tylenol 650mg q6, Oxycodone 5mg q4 prn. * Bowel - Miralax 17gm daily, Senokot 1 tablet qhs. * Adult immunization - Administer pneumonia vaccine, covid vaccine, flu vaccine as appropriate. * DVT prophylaxis - Held. * Hypertension - Metoprolol 25mg bid, Lisinopril 40mg daily, Amlodipine 5mg daily. * Coronary artery disease - Metoprolol 25mg bid, Lisinopril 40mg daily, Aspirin 81mg daily. * Vitamin D deficiency - D 125mcg daily. * Vitamin B12 deficiency - B12 1000mcg daily. * Inflammatory polyarthropathy - MTX 20mg qweek, Folic acid 2mg daily. * Nutrition - Jevity 1.5 50ml/hour. * GERD - Lansoprazole 30mg daily. * Macular degeneration - Healthy Eyes 1 capsule daily. * Nausea - Zofran odt 4mg q8 prn. * Hyperlipidemia - Pravastatin 40mg qhs. * BPH - Doxazosin 4mg qhs. * Shortness of breath - Albuterol 2 puffs q4 prn. * Rash - HC topical bid prn. * Diarrhea - Loperamide 2mg q2h prn. * Skin irritation - Calmoseptine topical bid. * Dry Eyes - Artifiical tears 2 gtt q1h prn. The following psychotropic medication was present on admission: Elavil 10mg qhs. Psychotropic medication therapy is indicated for a diagnosis of: Insomnia. Based on my clinical evaluation, continuation of the medication is necessary at this time. Gradual dose reduction plan (select one): ____ GDR will be attempted. Will monitor patient symptoms and behaviors in response to GDR. __x__ GRD contraindicated. Reason contraindicated: stable chronic residential use. The following psychotropic medication was present on admission: Lexapro 5mg daily. Psychotropic medication therapy is indicated for a diagnosis of: Depression. Based on my clinical evaluation, continuation of the medication is necessary at this time. Gradual dose reduction plan (select one): ____ GDR will be attempted. Will monitor patient symptoms and behaviors in response to GDR. __x__ GRD contraindicated. 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 Medications at Discharge Home Medications amitriptyline 10 mg tablet 10 mg feeding tube QHS Mood 05/20/25 aspirin 81 mg tablet 81 mg PO DAILY Heart 05/20/25 benazepril 40 mg tablet 40 mg feeding tube DAILY BP 05/20/25 cyanocobalamin (vitamin B-12) 1,000 mcg capsule 1,000 mcg PO DAILY Supplement 05/20/25 escitalopram oxalate 5 mg tablet 5 mg feeding tube DAILY Mood 05/20/25 omeprazole 40 mg capsule,delayed release 40 mg PO DAILY GERD 05/20/25 vitamins A,C,C-cfmy-hwfrku 4,296 mcg-226 mg-90 mg capsule (Healthy Eyes SuperVision) 1 cap PO DAILY Eye Vitamin 05/20/25 menthol 0.44 %-zinc oxide 20.6 % topical ointment (CalaSoothe) 1 applic topical BID 05/25/25 acetaminophen 500 mg tablet 1,000 mg (2 x 500 mg) PO Q8 #0 tabs 07/10/25 cholecalciferol (vitamin D3) 125 mcg (5,000 unit) capsule 125 mcg PO DAILY #0 caps 07/10/25 cholestyramine (with sugar) 4 gram powder for susp in a packet 1 ea PO BIDAC 30 days #60 ea 07/10/25 doxazosin 4 mg tablet 4 mg PO QHS 30 days #30 tabs 07/10/25 folic acid 1 mg tablet 2 mg (2 x 1 mg) PO DAILY #0 tabs 07/10/25 methotrexate sodium 2.5 mg tablet 20 mg (8 x 2.5 mg) PO Q7D #0 tabs 07/10/25 metoprolol tartrate 25 mg tablet 25 mg PO BID #0 tabs 07/10/25 pantoprazole 40 mg tablet,delayed release 40 mg PO DAILY 30 days #30 tabs 07/10/25 pravastatin 40 mg tablet 40 mg PO QHS #0 tabs 07/10/25 Hospital Course Operations None Procedures EGD Summary of Care Provided Minutes Spent on Discharge: 35 Hospital Course: 89 year old male with below past medical history hospitalized for SDH, SAH, multiple traumatic fractures, complicated by dysphagia requiring dobbhoff TF, admitted to TCU with debility, here for rehabilitation, strengthening, prior to discharge home with . 05/26/2025 Dr. Ferrara EGD: Impression: - Normal esophagus. - Gastritis. - No gross lesions in the duodenal bulb. - An endoscopically removable PEG placement was successfully completed. - No specimens collected. 06/17/2025 Dr. Ferrara EGD: Impression: - Abnormal esophageal motility, established achalasia. Dilated. Injected with botulinum toxin. - Intact gastrostomy with a patent G-tube present. - No gross lesions in the entire examined duodenum. - No specimens collected. Discharge home with 07/16/2025, [facility] PT/OT/ST. Physical Exam Const alert General Appearance: cooperative HEENT normocephalic Eyes PERRL and EOMs intact bilaterally Neck supple, no JVD and no carotid bruits Resp normal respiratory effort, normal air movement and clear to auscultation bilaterally Cardio regular rate and regular rhythm GI normal to inspection, nondistended, normoactive bowel sounds, non-tender and non-distended GI Narrative: PEG present. Extremity normal capillary refill General Extremity: Negative for edema Skin no rashes or lesions noted General Skin Exam: no breakdown Psych affect normal Appearance: appropriate Medical Records Data Medical Nutrition Assessment Dietitian: Malnutrition Criteria Met Start: 05/21/25 14:30 Freq: Status: Active Protocol: Document 06/03/25 09:58 SLA (Rec: 06/03/25 09:59 SLA [id number]) Nutrition Malnutrition Evidence of Yes Malnutrition Exists Malnutrition (severe Acute Illness/Injury ): Evidenced By Suboptimal Energy Intake (Severe),Weight Loss (Severe) Intake Problem Increased Nutrient Needs (specify) Etiology protein related to skin status Signs/Symptoms as evidenced by PI neville buttock Status Active Problem Inadequate Oral Intake Etiology related to swallowing difficulty Signs/Symptoms as evidenced by NPO and need for enteral nutrition support Status Active Problem Clinical Problem Acute Disease or Injury Related Malnutrition Etiology severe protein-calorie malnutrition in the context of acute illness and injury related to swallowing difficulty and inadequate energy intake Signs/Symptoms as evidenced by ~10% unintentional weight loss x less than 1 month and oral intake meeting less than 50- 75% estimated nutrition needs; need for enteral nutrition support Status Active Problem Recommendation Dietitian NPO; LABOR COMMISSIONER evaluation to assess ability to safely take Recommendations/ oral nutrition. Changes Will change bolus tf to 240 ml Jevity 1.5 w/ 180 ml water flush 5x/day (800, 1100, 1400, 1800, 2200) to provide 1800 randy / 76 gm pro/ 1812 ml free water/day. Rec Khalif bid w/ medpass if warranted to help w/ wound healing. Will monitor TF tolerance, weight and follow-up. Weight / BMI Weight Weight: 66.678 kg Body Mass Index (BMI) 23.7 ABG / Lab / Microbiology Data 07/08/25 09:29 07/08/25 09:29 Microbiology: Microbiology 06/18/25 11:20 Urine Catheter - Catheter Urine Culture - Final Culture exhibits no growth. 06/15/25 06:31 Nasal Secretion SARS-CoV-2 Antigen (Rapid) - Final 06/13/25 05:00 Nasal Secretion SARS-CoV-2 Antigen (Rapid) - Final 06/11/25 05:23 Nasal Secretion SARS-CoV-2 Antigen (Rapid) - Final 05/26/25 11:07 Mucosa - Nasopharyngeal Respiratory Panel (PCR) - Final 05/26/25 10:05 Nasal Secretion SARS-CoV-2 Antigen (Rapid) - Final 05/21/25 18:55 Urine Catheter - Catheter Urine Culture - Final Culture exhibits no growth. D/C Instructions Discharge Activity: Return to Normal Activity, May Shower and Use Walker Weight Bearing Status: Weight bearing as tolerated Call your doctor if you observe: Fever of 101 or Higher, Inability to urinate, Inability to have a bowel movement, Shortness of breath, Dizziness, Fainting spells, Swelling in the ankles, Chest pain and Uncontrolled pain DC O2, CPAP, BIPAP Needs Home O2 Discharge instructions: No Additional Instructions: Discharge home with 07/16/2025, [facility] PT/OT/ST. Please Follow Up With: Joon Khoury MD When: As scheduled. Meaningful Use Info Meaningful Use Meaningful Use Diagnoses (Choose all that apply): None applicable Discharge Plan Admission Admit Date/Time: 05/20/25 18:52 Primary Reason for Your Visit: Debility. Attending Provider: Jesus Alberto Wiggins Chi Primary Care Provider: Devan Welch Instructions Additional Instructions / Restrictions: Discharge home with 07/16/2025, [facility] PT/OT/ST. Discharge Orders/Prescriptions Prescriptions: New acetaminophen 500 mg Tablet 1,000 mg PO Q8 Qty: 0 0RF cholecalciferol (vitamin D3) 125 mcg (5,000 unit) Capsule 125 mcg PO DAILY Qty: 0 0RF pravastatin 40 mg Tablet 40 mg PO QHS Qty: 0 0RF methotrexate sodium 2.5 mg Tablet 20 mg PO Q7D Qty: 0 0RF pantoprazole 40 mg Tablet,Delayed Release (Dr/Ec) 40 mg PO DAILY 30 Days Qty: 30 0RF doxazosin 4 mg Tablet 4 mg PO QHS 30 Days Qty: 30 0RF folic acid 1 mg Tablet 2 mg PO DAILY Qty: 0 0RF cholestyramine (with sugar) 4 gram Powder In Packet 1 ea PO BIDAC 30 Days Qty: 60 0RF metoprolol tartrate 25 mg Tablet 25 mg PO BID Qty: 0 0RF Continued amitriptyline 10 mg tablet 10 mg feeding tube QHS aspirin 81 mg tablet 81 mg PO DAILY Patient Comments: via g-tube benazepril 40 mg tablet 40 mg feeding tube DAILY cyanocobalamin (vitamin B-12) 1,000 mcg capsule 1,000 mcg PO DAILY escitalopram oxalate 5 mg tablet 5 mg feeding tube DAILY omeprazole 40 mg capsule,delayed release(DR/EC) 40 mg PO DAILY Healthy Eyes SuperVision 4,296 mcg-226 mg-90 mg capsule 1 cap PO DAILY Discontinued doxazosin [Cardura] 4 mg tablet 4 mg PO QHS Isosource 1.5 Randy 0.07 gram-1.5 kcal/mL liquid See Rx Instructions feeding tube .COMPLEX Patient Comments: 50 ml/h Rx Instructions: 50ml/h via feeding tube; Trexall 5 mg tablet 20 mg feeding tube QWEEK Patient Comments: Take one time per week on Sundays acetaminophen 325 mg capsule 650 mg feeding tube Q6H amlodipine 5 mg tablet 5 mg feeding tube DAILY bisacodyl 5 mg tablet 5 mg PO DAILY PRN (Reason: constipation) folic acid 1 mg tablet 2 mg feeding tube DAILY metoprolol tartrate 25 mg tablet 25 mg feeding tube BID ondansetron HCl 4 mg tablet 4 mg feeding tube Q8H PRN (Reason: nausea and vomiting) oxycodone 5 mg tablet 5 mg feeding tube Q4H PRN (Reason: pain (scale score 7-10)) pantoprazole 40 mg tablet,delayed release (DR/EC) 40 mg PO DAILY polyethylene glycol 3350 [Miralax] 17 gram/dose powder 17 g feeding tube DAILY pravastatin 40 mg tablet 40 mg feeding tube QHS sennosides [Senokot] 8.6 mg tablet 8.6 mg PO QHS cholecalciferol (vitamin D3) 125 mcg (5,000 unit) tablet 125 mcg feeding tube DAILY alfuzosin 10 mg tablet extended release 24 hr 10 mg PO DAILY Rx Instructions: administer after the same meal each day No Action menthol-zinc oxide [CalaSoothe] 0.44-20.6 % ointment 1 applic topical BID Referrals / Follow Up: Devan Welch MD [Primary Care Provider, Family Practice] - Within 1 Week Referral Note: TCM. Disposition Disposition (needs filled in before D/C Order can be placed): Home Health Service
[2025-07-10 21:35] VITALS: BP 119/56; PULSE 85
[2025-07-10] MEDS: Jevity 1.5. 1,000 ML Bottle 240 ML GT (21:40)
[2025-07-10] MEDS: Senna Tablet 1 TABLET PO (21:40)
[2025-07-10 23:00] VITALS: BP 119/56; PULSE 85
[2025-07-11] MEDS: Multivitamin (Healthy Eyes) Capsule 1 CAP PO (09:13)
[2025-07-11 09:14] VITALS: BP 96/50; PULSE 74
[2025-07-11] MEDS: Cholecalciferol (Vit D3) 125 MCG CAPSULE (5,000 UNITS) PO (09:14)
[2025-07-11] MEDS: Polyethylene Glycol 3350 17 GM PACKET PO (09:24)
[2025-07-11 09:28] VITALS: BP 96/50; PULSE 74; RESP 16; TEMP 36.6; O2SAT 95
[2025-07-11 13:40] VITALS: PULSE 74; RESP 16; O2SAT 95
--- NOTE | 2025-07-11 18:03 | NURSING ---
HELD METHOTREXATE DUE TO 2 ORDERS. ONE ON HOLD AND THE OTHER STATED TO GIVE ON SUNDAY BUT WAS SCHEDULED FOR TODAY. ALSO MED CAN NOT BE CRUSHED. PHARMACY AWARE, WILL BE NOTIFIED. RN AWARE
--- NOTE | 2025-07-11 18:08 | NURSING ---
Addendum entered by Paulino Vu 07/11/25 18:29: PT WAS SITTING STRAIGHT UP IN RECLINER FEET DOWN WHEN EATING. Original Note: AT 1745 THIS NURSE HEARD PT COUGHING WHILE EATING SUPPER. PT COUGHING SO HARD HE HAD TEARS RUNNING DOWN HIS FACE. ASKED PT WHAT HAPPENED PT STATED I DONT KNOW I WAS JUST EATING MY MEATBALLS/NODDLES AND STARTED COUGHING. SAT WITH PT TILL HE STOPPED COUGHING AND WAS OK AND PT STARTED EATING AGAIN. REMINDED PT ON HIS EDUCATION FROM SPEECH THERAPY ON SWALLOWING ETC. PT STAYED WAY FROM THE MEATBALLS/NODDLES AND ATE HIS CARROTS/LIQUID AND MAGIC CUP WITH NO PROBLEMS. PT IS ON A SOFT AND BITE SIZE DIET,NECTAR/MILDLY THICK. LUNGS CHECKED AND ARE CLEAR AT THIS TIME. WILL CONTINUE TO MONITOR. RN AWARE.
--- NOTE | 2025-07-11 18:48 | NURSING ---
dr davis would like methotrexate to remain on hold since pt not c/o arthritic pain. pt to follow up with MD after DC for instructions.
[2025-07-11] MEDS: Senna Tablet 1 TABLET PO (22:22)
[2025-07-11 22:24] VITALS: BP 134/66; PULSE 78
[2025-07-11] MEDS: Jevity 1.5. 1,000 ML Bottle 240 ML GT (22:26)
[2025-07-11 22:35] VITALS: BP 134/66; PULSE 78
[2025-07-12 06:27] VITALS: PULSE 80; RESP 16; O2SAT 98
[2025-07-12] MEDS: Multivitamin (Healthy Eyes) Capsule 1 CAP PO (09:37)
[2025-07-12] MEDS: Cholecalciferol (Vit D3) 125 MCG CAPSULE (5,000 UNITS) PO (09:38)
[2025-07-12 09:39] VITALS: BP 109/62; PULSE 75
[2025-07-12] MEDS: Polyethylene Glycol 3350 17 GM PACKET PO (09:53)
[2025-07-12 10:00] VITALS: BP 109/62; PULSE 75; RESP 16; TEMP 36.3; O2SAT 96
[2025-07-12] MEDS: Senna Tablet 1 TABLET PO (19:51)
[2025-07-12 19:54] VITALS: BP 122/61; PULSE 72
[2025-07-12 20:06] VITALS: BP 122/61; PULSE 72
[2025-07-12] MEDS: Jevity 1.5. 1,000 ML Bottle 240 ML GT (22:13)
[2025-07-13] MEDS: Cholecalciferol (Vit D3) 125 MCG CAPSULE (5,000 UNITS) PO (08:42)
[2025-07-13] MEDS: Multivitamin (Healthy Eyes) Capsule 1 CAP PO (08:43)
[2025-07-13] MEDS: Polyethylene Glycol 3350 17 GM PACKET PO (08:53)
[2025-07-13 08:57] VITALS: BP 88/46; PULSE 82
[2025-07-13 10:06] VITALS: BP 101/54; PULSE 95
[2025-07-13 18:36] VITALS: BP 95/48; PULSE 69; RESP 16; TEMP 36.6; O2SAT 96
[2025-07-13 21:35] VITALS: BP 140/70; PULSE 72; RESP 18; O2SAT 97
[2025-07-13 22:12] VITALS: BP 140/70; PULSE 72
[2025-07-13] MEDS: Jevity 1.5. 1,000 ML Bottle 240 ML GT (22:13)
[2025-07-13] MEDS: Senna Tablet 1 TABLET PO (22:13)
[2025-07-14] VITALS (11 sets, daily range): BP systolic 117–129; BP diastolic 54–68; PULSE 62–84; RESP 14–18; TEMP 36.4–37.3; O2SAT 96–99; BMI 23.4
[2025-07-14] MEDS: Multivitamin (Healthy Eyes) Capsule 1 CAP PO (10:12)
[2025-07-14] MEDS: Cholecalciferol (Vit D3) 125 MCG CAPSULE (5,000 UNITS) PO (10:14)
--- NOTE | 2025-07-14 15:15 | NURSING ---
PEG TUBE EDUCATION AND FLUSHING DONE WITH DAUGHTER. DAUGHTER DID WELL. CONTINUE TEACHING TILL D/C.
--- NOTE | 2025-07-14 18:15 | NURSING ---
AT 1550 THIS NURSE IN [place] BY ROOM 4 HEARD A LOUD CRASH. HEARD FAMILY YELL FROM RM 5. THIS NURSE TO ROOM AND FAMILY STATED PT FELL. THIS NURSE FOUND PT ON FLOOR IN BATHROOM SITTING UP BLEEDING FROM LT ELBOW. CALLED FOR STAFF HELP. ASKED PT WHAT HAPPENED. PT STATED HE WALKED INTO BATHROOM WITH WALKER AND WENT TO GRAB A ATTEND OFF THE SHELF AND LOST HIS BALANCE. ASKED PT IF HE HURT ANY WHERE,PT STATED HE HIT HIS HEAD AND ELBOW. VITALS DONE,GOT PT INTO WHEELCHAIR WITH HELP OF STAFF. ASSESSED PT, A/O X3. WOUND CARE TO LT ELBOW. DID NOT SEE ANY WOUND TO POST LT SIDE OF HEAD BUT FELT SMALL LUMP AND PT STATED IT WAS SORE. FOUND SM SCRATCH TO PT LT SIDE OF BACK. NO BRUISES AT THIS TIME. NOTIFIED BY RN AND ORDERED CT OF HEAD. THIS NURSE STATED TO PT THAT HE IS NO LONGER AB ANN MARIE AND MUST CALL OUT IF NEED ANY THING TILL THERAPY REEVALUATES. MACHINE PROGRAMMER/THERAPY/JACKIE NOTIFIED. FAMILY IN ROOM THE HOLE TIME AND ARE AWARE. WILL CONTINUE TO MONITOR.
[2025-07-14] MEDS: Jevity 1.5. 1,000 ML Bottle 240 ML GT (20:40)
[2025-07-15] VITALS (10 sets, daily range): BP systolic 95–132; BP diastolic 51–75; PULSE 63–88; RESP 16–18; TEMP 36.4–36.7; O2SAT 94–98
[2025-07-15 06:34] LABS: Hematocrit 32.0 % (40-54); Hemoglobin 10.7 g/dL (13.0-16.5); Immature Granulocytes Count 0.030 X10^3/uL (0.0-0.0); Mean Corp Hgb Conc 33.4 g/dL (32-36); Mean Corpuscular Volume 95.0 fL (80-94); Mean Platelet Vol. 9.1 fl (6.2-12.0); NRBC Flagged by Analyzer 0 % (0-5); Platelet Count 255 K/mm3 (150-450); RBC Distribution Width CV 13.2 % (11.6-14.6); RBC Distribution Width SD 45.7 fl (35.1-43.9); Red Blood Count 3.37 M/mm3 (4.6-6.2); White Blood Count 7.7 K/mm3 (4.4-11.0)
[2025-07-15 06:55] LABS: Anion Gap 11 (5-15); BUN 23 mg/dL (4-19); BUN/Creat Ratio 31.8 RATIO (10-20); Calcium,Total 8.8 mg/dL (7.6-11.0); Carbon Dioxide 21.1 mmol/L (21.0-32.0); Chloride 103 mmol/L (98-108); Estimated Creatinine Clearance 56.49 ml/min (50-250); Glucose 89 mg/dL (70-99); Potassium 4.5 mmol/L (3.3-5.1)
[2025-07-15] MEDS: Multivitamin (Healthy Eyes) Capsule 1 CAP PO (09:14)
[2025-07-15] MEDS: Cholecalciferol (Vit D3) 125 MCG CAPSULE (5,000 UNITS) PO (09:15)
[2025-07-15] MEDS: FLU VACCINE HIGH DOSE 25-26(65YR UP) 180 MCG/0.5 ML SYRINGE IM (09:42)
--- NOTE | 2025-07-15 14:58 | CASEMGMT ---
Social Work SW followed up with pt after the fall and pt has no repercussions and still feels comfortable DCing home. SW completed BIMS () and PHQ-2 () for MDS assessment. Alondra Rutherford MSW SALES OFFICE COORDINATOR
[2025-07-15] MEDS: Jevity 1.5. 1,000 ML Bottle 240 ML GT (20:51)
[2025-07-16 02:00] VITALS: BP 121/61; PULSE 68; RESP 16; O2SAT 94
[2025-07-16 06:00] VITALS: BP 114/60; PULSE 78; RESP 16; O2SAT 99
[2025-07-16 06:36] VITALS: PULSE 78; RESP 16; O2SAT 99
[2025-07-16] MEDS: Multivitamin (Healthy Eyes) Capsule 1 CAP PO (08:28)
[2025-07-16 08:29] VITALS: BP 100/58; PULSE 89
[2025-07-16] MEDS: Cholecalciferol (Vit D3) 125 MCG CAPSULE (5,000 UNITS) PO (08:29)
[2025-07-16 10:00] VITALS: BP 100/58; PULSE 83; RESP 16; TEMP 36.7; O2SAT 95
[2025-07-16 13:24] VITALS: BP 100/58; PULSE 83; RESP 16; TEMP 36.7; O2SAT 95
== END 2025-07-16 12:45 | disposition home health service (06) | DRG 559 ==
PROVIDERS: Anesthesiology; Admitting Provider Family Medicine Geriatric Medicine; PCP Family Medicine; Referring Provider Family Medicine Geriatric Medicine; Visit Provider Family Medicine Geriatric Medicine
DX: S02.31XD Fracture of orbital floor, right side, subsequent encounter for fracture with routine healing (principal); E43 Unspecified severe protein-calorie malnutrition; J69.0 Pneumonitis due to inhalation of food and vomit; J96.01 Acute respiratory failure with hypoxia; L89.312 Pressure ulcer of right buttock, stage 2; L89.322 Pressure ulcer of left buttock, stage 2; K22.0 Achalasia of cardia; M06.4 Inflammatory polyarthropathy; I72.3 Aneurysm of iliac artery; I10 Essential (primary) hypertension; F32.A Depression, unspecified; I65.29 Occlusion and stenosis of unspecified carotid artery; Z93.1 Gastrostomy status; H35.30 Unspecified macular degeneration; K21.9 Gastro-esophageal reflux disease without esophagitis; E78.5 Hyperlipidemia, unspecified; E55.9 Vitamin D deficiency, unspecified; M19.90 Unspecified osteoarthritis, unspecified site; I25.10 Atherosclerotic heart disease of native coronary artery without angina pectoris; E53.8 Deficiency of other specified B group vitamins; K29.70 Gastritis, unspecified, without bleeding; R13.10 Dysphagia, unspecified; S32.591D Other specified fracture of right pubis, subsequent encounter for fracture with routine healing; S06.6XAD Traumatic subarachnoid hemorrhage with loss of consciousness status unknown, subsequent encounter; S06.5XAD Traumatic subdural hemorrhage with loss of consciousness status unknown, subsequent encounter; N40.0 Benign prostatic 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 lower urinary tract symptoms; Z79.899 Other long term (current) drug therapy; Z87.891 Personal history of nicotine dependence; Z79.82 Long term (current) use of aspirin; S02.121 Fracture of orbital roof, right side; X58.XXXD Exposure to other specified factors, subsequent encounter; S32.19XD Other fracture of sacrum, subsequent encounter for fracture with routine healing; S32.592D Other specified fracture of left pubis, subsequent encounter for fracture with routine healing; Z23 Encounter for immunization; Z68.23 Body mass index [BMI] 23.0-23.9, adult; R21 Rash and other nonspecific skin eruption
CPT/HCPCS: 36415; 36569; 71046; 74018; 74230; 80048; 80053; 80061; 81001; 82306; 82607; 82962; 83880; 85025; 85379; 85610; 85730; 87086; 87633; 87811; 90480; 91322; 92507; 92523; 92526; 92610; 92611; 93005; 94640; 97110; 97116; 97129; 97130; 97162; 97166; 97530; 97535; 97802; 97803; A4216; J0295; J1938; J8610

== ENCOUNTER → 2025-05-21 | Outpatient (CLI) | payer MEDICARE, OTHER, SELFPAY ==
--- NOTE | 2025-05-21 18:40 | CT_ITS ---
PROCEDURE: BRAIN/HEAD WITHOUT CONTRAST 05/21/2025 REASON FOR EXAM: PAIN TECHNIQUE: BRAIN/HEAD WITHOUT CONTRAST Coronal and Sagittal reconstruction series were provided. One or more dose reduction techniques were used (e.g., Automated exposure control, adjustment of the mA and/or kV according to patient size, use of iterative reconstruction technique. RADIATION DOSE SUMMARY: CTDlvol: 44.99 mGy DLP: 863.6 mGycm COMPARISON: None. FINDINGS: No definite acute intracranial hemorrhage. There is a small focus of extra- axial crescentic hyperdensity which appears dependently layering at the left parietal convexity (S2 image 31) of uncertain etiology. This does not have the appearance of subarachnoid hemorrhage, but may represent an extra-axial lesion such as dermoid/epidermoid cyst. There is asymmetric hypodense CSF space along the right cerebral convexity, which may reflect a chronic subdural hematoma collection versus subdural hygroma. No significant mass-effect or midline shift. Normal ventricular caliber. Mild generalized brain parenchymal volume loss, and chronic microangiopathic changes. No evidence of acute territorial infarct. Atherosclerotic vascular calcifications. Absent akhiok ocular lenses. Intact skull base and calvarium. Well-aerated paranasal sinuses and bilateral mastoid air cells. Partially imaged nasogastric tube in place. CT/Brain/Head without Contrast IMPRESSION: No definite acute intracranial hemorrhage, mass-effect or acute infarct. Mild generalized volume loss and chronic microangiopathic changes. Small crescentic extra-axial hyperdensity appears to be layering dependently at the left parietal convexity, of uncertain etiology. This does not have the appearance of subarachnoid hemorrhage. Consid er MRI for further evaluation, possibly a dermoid/epidermoid lesion. Asymmetric extra-axial CSF space along the right cerebral convexity potentially reflects a chronic small subdural hematoma collection or hygroma. Reading Location: [id number]
== END | disposition home or self-care (01) ==
PROVIDERS: PCP Family Medicine; Referring Provider Family Medicine Geriatric Medicine; Visit Provider Family Medicine Geriatric Medicine
DX: I61.9 Nontraumatic intracerebral hemorrhage, unspecified (principal)
CPT/HCPCS: 70450

== ENCOUNTER 2025-05-26 05:45 | Day surgery (SDC) | payer MEDICARE, OTHER, SELFPAY ==
[2025-05-26] VITALS (11 sets, daily range): BP systolic 82–116; BP diastolic 48–72; PULSE 72–90; RESP 18–24; TEMP 36.6–37.4; O2SAT 89–97; BMI 23.5
--- OUTSIDE RECORDS SUMMARY | 2025-05-26 05:53 | XMS RPT_ITS | CCD ---
Author Organization [facility] Care Team Providers Care Payer Specialist Name Role Phone Don Barrera Unavailable [phone] Don Barrera Primary Care Provider Vijay Viveros Unavailable VIJAY VIVEROS Referring Unavailab le DON BARRERA Primary Care Unavaila GLORIA Herr Attending Unavailable DON BARRERA Primary Care Unavaila ble Don Barrera Unavailable Unavailable Barrera Christopher D Unavailable Unavailable Leonardo Ballesteros Unavailable Unavailable ColindresRobb W Unavailable Unavailable Chandler, Kelli Unavailable Unavailable Callaway, Dina Unavailable Unavailable Adelita Linne Unavailable Unavailable Gracie Quezada Unavailable Unavailable Dioni Elmore Unavailable Unavailable Barrera Christopher D Unavailable Unavailable [facility] UROLOGY NURSE, [id number] Unavailable Unavailable Colindres II, Robb Unavailable Unavailable Melody Joseph Unavailable Unavailable Gracie Al Unavailable Unavailable Dew, Santy Unavailable Unavailable Christo Martine Unavailable Unavailable HEATHER PAREDES Admitting Unavailable HEATHER PAREDES Referring Unavailable DON BARRERA Primary Care Unavaila ble Don Barrera Unavailable Unavailable Don Barrera Primary Care Provider [phone] Vijay Viveros Unavailable Don Barrera MD Unavailable Unavailable Alok Barreraophdequan Baptiste Unavailable Unavailable Leonardo Ballesteros Unavailable Unavailable Colindres Robb W Unavailable Unavailable Barrera Christopher D Unavailable [phone] Unavailable Unavailable Don Barrera MD Primary Care Provider Vijay Viveros MD Unavailable Wilson SEVILLA, Vijay De La Paz Unavailable Wilson SEVILLA, Vijay De La Paz Unavailable Unavailable Unavailable Don Barrera MD Primary Care Provider Vijay Viveros MD Unavailable Don Barrera Unavailable Heike Adams Unavailable Unavailable Otoniel Salcedo Unavailable Unavailable Yuri SEVILLA, Don Bowman Primary Care Provider Vijay Viveros MD Unavailable Yuri SEVILLA, Don Bowman Primary Care Provider Don Barrera MD Primary Care Provider [phone] Don Barrera MD Unavailable [phone] Yuri, Dr. Don Bowman Primary Care Unav ailmaisha Barrera, Dr. Don Bowman Attending Omairav ailmaisha Adams, Ms. Heike Dickens Attending Donnie Barrera, Dr. Don Bowman Primary Care Unav ailmaisha Barrera, Dr. Don Bowman Primary Care Una coral Cotto, Dr. Earle Reyes Attending Unavaila sung Adams, Ms. Heike Dickens Attending Donnie Barrera, Dr. Don Bowman Primary Care Unav Don Alexander MD Unavailable [phone] Don Barrera MD Primary Care Provider [phone] Howard Soria OD Unavailable Don Barrera MD Primary Care Provider Don Barrera MD Unavailable [phone] Don Barrera MD Primary Care Provider Don Barrera MD Primary Care Provider [phone] DELTA BANGURA Attending Unavailable DELTA BANGURA Referring Unavailable DON BARRERA Primary Care Unavaila Don Castillo MD Unavailable [phone] Don Barrera MD [...] BARRERA, CHRISTOPHER D Primary Care Unavailable LINCOLN PATTERSONIN Attending Unavailable LINCOLN PATTERSONIN Admitting Unavailable BARRERA, DON BOWMAN Primary Care [...] Referring Unavailable DON BARRERA Primary Care Unavailable Feliciano, Jesus Alberto Chi Referring Unavailable Devan Barrera Primary Care Unavailable Feliciano, Jesus Alberto Chi Admitting Unavailable Feliciano, Jesus Alberto Chi Attending Unavailable Barrera Devan Primary Care Unavailable Feliciano, Jesus Alberto Chi Attending Unavailable Feliciano, Jesus Alberto Chi Referring Unavailable Yuri Devan Primary Care Unavailable Friend, Stan Attending Unavailable Medications Current Medications Medication Drug Class(es) [...] Every 4 hours scheduled, First dose on Sun09/10/19 at 1600 take 3000 [IU[facility] ACETAMINOPHEN (TYLENOL EXTRA STRENGTH ORAL) Take 3,000 Units by mouth once daily. 0 Active End: 09-11-2019 Acetaminophen 500 MG Oral Ta blet Refills: 0 DO Active Comment on above: Take 3,000 Units by mouth once daily. acetaminophen 325 mg / oxyCODONE hydrochloride 5 mg oral tablet (10 sources) Opioid Agonist Start: 04-13-20 End: 07-19-20 21 oxyCODONE-acetamino phen (PERCOCET) 5-325 mg per tablet alendronic acid 70 mg oral tablet (11 sources) Bisphosphonate Start: 10-03-20 End: 09-28-20 23 take 1 tablet by mouth every week [...] on above: Take 1 tablet by miquel one time a week. 24 hr alfuzosin [...] Dihydropyridine Calcium Channel Eneida Start: 014 End: 025 take 1 tablet by mouth once daily [...] oral tablet (3 sources) Penicillin-class Antibacterial Start: End: take 1 tablet by mouth twice [...] a day Quantity: 0 Refills: 0 Ordered: 3-Dec-2022 Shires, Paige Generic Substitution Allowed Aspirin 81 [...] Converting Enzyme Inhibitor Start: 09-08-20 End: 09-01-20 25 take 1 tablet by mouth once daily [...] (2 sources) Stimulant Laxative Star t: 04-22 25 take 1 tablet by mouth once daily [...] (3 sources) Vitamin D Star t: 04-23 25 take 1 tablet by mouth once daily cholecalciferol (Vitamin D-3) 125 mcg (5,000 units) tablet Indications: Fall, initial encounter , Open fracture of roof of right orbit, initial encounter (Multi) Take 1 tablet (125 mcg) by mouth once daily. 05/21/2025 Active Start: 05-16-2025 125 mcg, nasod uodenal tube, Daily, First dose (after last modification) on Sun05/16/25 at 0900 Start: 05-13-2025 End: 05-13-2025 take [...] Active Start: 09-29-2016 take 1 tablet by miquel every week methotrexate 2.5 mg tablet Take [...] 3 09/01/2024 09/01/2025 Active Start: 09-08-2014 omeprazole (AK ILOSEC) 20 mg capsule 20 mg once [...] Drop ( AK-DILATE, JEFFREY-SYNEPHRINE) polyethylene glycol 3350 27376 mg powder for oral solution (11 sources) [...] 0.5 % 1 Drop (A LCAINE) sennosides, assisted 8.6 mg oral tablet (2 sources) Start: [...] mg) by mouth once daily. 30 tablet 11/05/2023 11/04/2024 Active tropicamide 10 mg/ml ophthalmic [...] Minutes, Every 6 hours, First dose on 05/10/25 at 2315, Possible open fracture of the right orbit Vial-Bag System, Suspected Indication (Select all that apply): Sinusitis/Other ENT, Type of Therapy: Empiric, Indications: Sinusitis/Other ENT bacitracin zinc 0.5 unt/mg topical ointment (1 source) Start: 05-10-2025 End: 05-10-2025 1 Application, Topical, Once, On 05/10/25 at [...] mL, oral, Once in imaging, Starting on [facility] 05/14/25 at 1356, For 1 dose barium sulfate (Varibar Crivitz) 40 % (w/v) suspension 30 mL (1 source) Start: 05-14-2025 End: 05-14-2025 take 30 mL by mouth once 30 mL, oral, Once in imaging, Starting on [facility] 05/14/25 at 1356, For 1 dose barium sulfate (Varibar Pudding) 40 % (w/v), 30% (w/w) oral paste 50 mL (1 source) Start: 05-14-2025 End: 05-14-2025 50 mL, oral, Once in imaging, Starting on [facility] 05/14/25 at 1356, For 1 dose, Administer [...] Active take 1 capsule by mouth once isd ly benzonatate 200 mg oral capsule ; [...] Active docusate sodium 50 mg / sennosides, assisted 8.6 mg oral tablet (1 source) Start: [...] at 1405, For 1 dose flu vacc [id number], 65yr up,-PF (Fluzone High-Dose Quad) syringe (3 sources) Start: 07-16-2023 End: 09-28-2023 flu vacc [id number], 65yr up,-PF (Fluzone High-Dose Quad) syringe INJECT DIRECTED .7 mL 0 07/16/2023 09/28/2023 Discontinued (Med List Cleanup) Start: 07-16-2023 End: 07-15-2024 flu vacc [id number], 65yr up, -PF (Fluzone High-Dose Quad) syringe [...] hour 100 mL/hr, intravenous, Continuous, Starting on [facility] 05/14/25 at 1015, For 1 day 0.5 ml HYDROmorphone hydrochloride 1 mg/ml prefilled syringe (1 source) Opioid Agonist Start: 05-10-2025 End: 05-10-2025 0.5 mg, intravenous, Once, On 05/10/25 at 1935, For 1 dose iohexol (OMNIPaque) 350 mg iodine/mL solution 95 mL (1 source) Start: 05-10-2025 End: 05-10-2025 95 mL, intravenous, Once in imaging, Starting on 05/10/25 at 1506, For 1 dose 1 ml ketorolac tromethamine 15 mg/ml injection (1 source) Nonsteroidal Anti-inflammatory Drug, Cyclooxygenase Inhibitor Start: 09-10-2019 End: 09-11-2019 15 mg, Intravenous, Every 6 hours scheduled, First dose on Sun09/10/19 at 1500, For 48 hours levETIRAcetam 500 mg oral tablet (3 sources) Start: 05-16-2025 End: 05-17-2025 500 mg, nasoduodenal tube, 2 times daily, First dose on 05/16/25 at 0900, For 2 days Start: 05-14-2025 [...] End: 05-10-2025 2 mg, intravenous, Once, On 05/10/25 at 1705, For 1 dose Multi Vitamin [...] Discharge) Start: 09-18-2022 take 2 tablets [facility] daily predniSONE 20 MG Oral [...] Daily Quantity: 180 Refills: 3 Ordered: 27-Oct-2022 Yuri SEVILLA, Don [facility] technetium (Tc-99m) tetrofosmin (Tc-MYOVIEW) injection 8-25 millicurie [...] hours PRN, moderate to severe pain, Starting Sun09/10/19 at 1411 For patient reported pain 4/10 [...] Documented Da te Episodic/Chronic Acute cerebrovascular disease (7 sources) Intracranial hemorrhage; Translations: [Nontraumatic intracranial hemorrhage, [...] heart disease (20 sources) Coronary arteriosclerosis in [place] artery; Translations: [Coronary arteriosclerosis] Onset: 6 06-05-2016 Chronic Deficiency and other anemia (2 sources) Anemia; Translations: [Anemia, unspecified] 11-20-2024 Episodic Disorders of lipid metabolism (20 sources) Mixed hyperlipidemia; Translations: [Hyperlipidemia] Onset: 9 05-19-2019 Chronic E Codes: Fall (5 sources) Fall; Translations: [Unspecified fall, initial encounter] Onset: 5 05-11-2025 Episodic Esophageal disorders (20 sources) Gastroesophageal reflux [...] Onset: 9 11-22-2018 Chronic Malaise and fatigue (2 sources) Asthenia; Translations: [Weakness] Onset: 5 11-15-2023 Episodic Mood disorders (1 source) Mood disorders; Translations: [Depression, unspecified] Onset: 5 Occlusion or stenosis of precerebral arteries (1 source) Occlusion and stenosis of unspecified carotid artery; Translations: [Occlusion and stenosis of unspecified carotid artery] Onset: 5 Chronic Osteoarthritis (20 sources) Osteoarthritis; Translations: [Osteoarthrosis, unspecified whether generalized or localized, site unspecified] Onset: 8 07-16-2019 Chronic Other aftercare (1 source) intermediate designer (current) use of aspirin; Translations: [intermediate designer (current) use of aspirin] Onset: 3 Episodic [...] fractures of pelvis with disruption of pelvic barrow; Translations: [Multiple fractures of pelvis with stable disruption of pelvic ring, initial encounter for closed fracture] 05-10-2025 Episodic Other fractures (2 sources) Multiple fractures of pelvis with stable disruption of pelvic ring, initial encounter for closed fracture; Translations: [Multiple fractures of pelvis with stable disruption of pelvic ring, initial encounter for closed fracture (Multi)] Onset: 5 Episodic Other fractures (4 sources) Other specified fracture of right pubis, initial encounter for closed fracture; Translations: [Closed fracture of pubis] Onset: 5 05-11-2025 Episodic Other fractures (3 sources) Other specified fracture of left pubis, initial encounter for closed fracture; Translations: [Other specified fracture of left pubis, initial encounter for closed fracture] Onset: 5 Episodic Other fractures (1 source) Unspecified fracture of sacrum, initial encounter for closed fracture; Translations: [Unspecified fracture of sacrum, initial encounter for closed fracture] Onset: 5 Episodic Other gastrointestinal disorders (9 sources) Personal history of other diseases of the digestive system; Translations: [History of gastroesophageal reflux (GERD)] Episodic Other gastrointestinal disorders (1 source) Dysphagia, unspecified; Translations: [Dysphagia, unspecified] Onset: 5 Episodic Other lower respiratory disease (4 sources) [...] 4 11-05-2023 Chronic Skull and face fractures (3 sources) Closed fracture of right orbit; Translations: [Fracture of orbit, unspecified, initial encounter for closed fracture] Onset: 5 05-10-2025 Episodic Spondylosis; intervertebral disc disorders; other back problems (20 sources) Arthritis of spine; Translations: [Lumbar spondylosis] Onset: 3 03-13-2023 Chronic Syncope (3 sources) Syncope; Translations: [Syncope and collapse] Onset: 5 05-13-2025 Episodic Transient cerebral ischemia (20 sources) Transient [...] encounter for open fracture (Multi)] Onset: 5 Unclassified (1 source) Fracture of orbital roof, unspecified side, initial encounter for closed fracture; Translations: [Fracture of orbital roof, unspecified side, initial encounter for closed fracture] Onset: 5 Unclassified (1 source) Traumatic subdural hemorrhage with loss of consciousness status unknown, initial encounter; Translations: [Traumatic subdural hemorrhage with loss of consciousness status unknown, initial encounter] Onset: 5 Past or Other Problems Problem [...] 05-13-2021 Episodic Other aftercare (3 sources) Other group home (current) drug therapy; Translations: [Other emt intermediate (current) drug therapy] Onset: 03-10-2023 Episodic Other [...] Test Name Value Interpretation Reference Range Facility Bedside Glucoseon 05-25-2025 FINGERSTICK GLU 121 mg/dL High 74-106 [facility] Comment on above: Result Comment: MINDY GEMENT OF PATIENT CARE PER NURSING PROTOCOL Performed By: #### L 501.080 #### [facility] [address] [place], [address] FINGERSTICK GLU 120 mg/dL High 74-106 [facility] Comment on above: Result Comment: MINDY GEMENT OF PATIENT CARE PER NURSING PROTOCOL Performed By: #### L 501.080 #### [facility] [address] [place], [address] Abdomen Single Viewon 2024 Abdomen Single View [facility] Imaging Services [address] [place] [address] Abdomen Single View MR#: [id number] Acct: [id number] Name: FAWN CAMERON Rep #: [id number] : 1935 M 89 From: Henry Wesley DO PCP: Dr. Devan Barrera MD Status: ADM IN Study: Abdomen Single View Date of Exam: 05/24/25 Exam# [id number] Ordering Dr: Jesus Alberto Wiggins MD PROCEDURE: ABDOMEN SINGLE VIEW 05/24/2025 REASON FOR EXAM: NASOGASTRIC TUBE TECHNIQUE: ABDOMEN SINGLE VIEW COMPARISON: Chest radiograph 05/21/2025 FINDINGS: An NG tube is seen in the stomach. The tip is near the body/ antrum region. Bowel gas: Gas distended loops of bowel are present. Calcifications: None detected Bones: Lumbar spine scoliosis Other: RAD/Abdomen Single View IMPRESSION: Tip of NG tube in satisfactory position. Reading Location: [facility] CC: Dr. Devan Barrera MD; Dr. Jesus Alberto Wiggins MD Slip Bridge Operator: Signed Normal [facility] Bedside Glucoseon 05-24-2025 FINGERSTICK GLU 116 mg/dL High 74-106 [facility] Comment on above: Result Comment: MINDY GEMENT OF PATIENT CARE PER NURSING PROTOCOL Performed By: #### L 501.080 #### [facility] [address] [place], [address] FINGERSTICK GLU 117 mg/dL High 74-106 [facility] Comment on above: Result Comment: MINDY GEMENT OF PATIENT CARE PER NURSING PROTOCOL Performed By: #### L 501.080 #### [facility] [address] [place], [address] FINGERSTICK GLU 122 mg/dL High 74-106 [facility] Comment on above: Result Comment: MINDY GEMENT OF PATIENT CARE PER NURSING PROTOCOL Performed By: #### L 501.080 #### [facility] [address] [place], [address] Comprehensive Metabolic Prof ilon 05-24-2025 Albumin [Mass/Vol] 3.0 g/dL Low 3.4-4.8 [facility] Comment on above: Performed By: #### L 506.1001, L500.4050, L500.4100, L503.0106 #### [facility] [address] [place], [address] Albumin/Globulin [Mass ratio] 1.3 {ratio} Normal 0.9-2.4 [facility] Comment on above: Performed By: #### L 506.1001, L500.4050, L500.4100, L503.0106 #### [facility] [address] [place], [address] ALK PHOS 147 U/L High 40-129 [facility] Comment on above: Performed By: #### L 506.1001, L500.4050, L500.4100, L503.0106 #### [facility] [address] [place], [address] ALT [Catalytic activity/Vol] 29 U/L Normal <=46 [facility] Comment on above: Performed By: #### L 506.1001, L500.4050, L500.4100, L503.0106 #### [facility] [address] [place], [address] AST [Catalytic activity/Vol] 23 U/L Normal <=37 [facility] Comment on above: Performed By: #### L 506.1001, L500.4050, L500.4100, L503.0106 #### [facility] [address] [place], [address] Bilirubin [Mass/Vol] 0.37 mg/dL Normal 0.00-1.30 [facility] Comment on above: Performed By: #### L 506.1001, L500.4050, L500.4100, L503.0106 #### [facility] [address] [place], [address] BUN/CRE 50.2 RATIO High 10-20 [facility] Comment on above: Performed By: #### L 506.1001, L500.4050, L500.4100, L503.0106 #### [facility] [address] [place], [address] Calcium [Mass/Vol] 8.3 mg/dL Normal 7.6-11.0 [facility] Comment on above: Performed By: #### L 506.1001, L500.4050, L500.4100, L503.0106 #### [facility] [address] [place], [address] Chloride [Moles/Vol] 96 mmol/L Low 98-108 [facility] Comment on above: Performed By: #### L 506.1001, L500.4050, L500.4100, L503.0106 #### [facility] [address] [place], [address] CO2 [Moles/Vol] 23.0 mmol/L Normal 21.0-32.0 [facility] Comment on above: Performed By: #### L 506.1001, L500.4050, L500.4100, L503.0106 #### [facility] [address] [place], [address] Creatinine [Mass/Vol] 0.78 mg/dL Normal 0.70-1.20 [facility] Comment on above: Performed By: #### L 506.1001, L500.4050, L500.4100, L503.0106 #### [facility] [address] [place], [address] ECRCL 56.19 ml/min Normal 50-250 [facility] Comment on above: Performed By: #### L 506.1001, L500.4050, L500.4100, L503.0106 #### [facility] [address] [place], [address] GAP 13 Normal 5-15 [facility] Comment on above: Performed By: #### L 506.1001, L500.4050, L500.4100, L503.0106 #### [facility] [address] [place], [address] GFR/1.73 sq M.predicted among non-blacks MDRD (S/P/Bld) [Vol rate/Area] 85 mL/min/{1.73_m2} Normal >60 [facility] Comment on above: Result Comment: mL/m in/1.73m2 CKD-EPI Creatinine Equation (2020) Performed By: #### L 506.1001, L500.4050, L500.4100, L503.0106 #### [facility] [address] [place], [address] Globulin (S) [Mass/Vol] 2.3 g/dL Normal 2.2-4.2 [facility] Comment on above: Performed By: #### L 506.1001, L500.4050, L500.4100, L503.0106 #### [facility] [address] [place], [address] Glucose [Mass/Vol] 136 mg/dL High 70-99 [facility] Comment on above: Performed By: #### L 506.1001, L500.4050, L500.4100, L503.0106 #### [facility] [address] [place], [address] Potassium [Moles/Vol] 3.8 mmol/L Normal 3.3-5.1 [facility] Comment on above: Performed By: #### L 506.1001, L500.4050, L500.4100, L503.0106 #### [facility] [address] [place], [address] Sodium [Moles/Vol] 132 mmol/L Low 133-145 [facility] Comment on above: Performed By: #### L 506.1001, L500.4050, L500.4100, L503.0106 #### [facility] [address] [place], [address] T PROT 5.3 g/dL Low 5.9-8.4 [facility] Comment on above: Performed By: #### L 506.1001, L500.4050, L500.4100, L503.0106 #### [facility] [address] [place], [address] Urea nitrogen [Mass/Vol] 39 mg/dL High 4-19 [facility] Comment on above: Performed By: #### L 506.1001, L500.4050, L500.4100, L503.0106 #### [facility] [address] [place], [address] Lipid Profileon 05-24-2025 CHOL:HDL 3.13 Normal [facility] Comment on above: Performed By: #### L 506.1001, L500.4050, L500.4100, L503.0106 #### [facility] [address] [place], [address] Cholesterol [Mass/Vol] 110 mg/dL Normal <=200 [facility] Comment on above: Result Comment: Chol esterol level, Desirable <200 mg/dL Borderline high cholesterol 200-239 mg/dL High cholesterol >=240 mg/dL Recommendations of the NCEP Adult Treatment Panel for the following risk-cutoff thresholds for the [place] population. Performed By: #### L 506.1001, L500.4050, L500.4100, L503.0106 #### [facility] [address] [place], [address] Cholesterol in HDL [Mass/Vol] 35 mg/dL Low [facility] Comment on above: Result Comment: Tawanna onal Cholesterol Education Program (NCEP) guidelines: <40 mg/dL: Low HDL-cholesterol (major risk factor for CHD) >= 60 mg/dL: High HDL-cholesterol (negative risk factor for CHD) HDL-cholesterol is affected by a number of factors, e.g. smoking, exercise, hormones, sex and age. Performed By: #### L 506.1001, L500.4050, L500.4100, L503.0106 #### [facility] [address] [place], [address] Cholesterol in LDL [Mass/Vol] 62 mg/dL Normal [facility] Comment on above: Result Comment: Bord crksri=940-080 mg/dL Higher Jlpt=389 mg/dL or greater Friedwald Equation for LDL-C Performed By: #### L 506.1001, L500.4050, L500.4100, L503.0106 #### [facility] [address] [place], [address] Cholesterol in VLDL [Mass/Vol] 13 mg/dL Normal 5-40 [facility] Comment on above: Performed By: #### L 506.1001, L500.4050, L500.4100, L503.0106 #### [facility] [address] [place], [address] Triglyceride [Mass/Vol] 65 mg/dL Normal [facility] Comment on above: Result Comment: The drugs N-Acetylcysteine and Metamizole may falsely depress this assay. Normal range: <150 mg/dL Borderline High: 150-199 mg/dL High: 200-499 mg/dL Very High: >500 mg/dL Performed By: #### L 506.1001, L500.4050, L500.4100, L503.0106 #### [facility] [address] [place], [address] Vitamin B12on 05-24-2025 Cobalamin (Vitamin B12) [Mass/Vol] 649 pg/mL Normal 180-914 [facility] Comment on above: Performed By: #### L 501.080 #### [facility] [address] [place], [address] Vitamin D,25 Hydroxyon 05-24 Vitamin D 25-OH 20.3 ng/mL Low 30-100 [facility] Comment on above: Result Comment: Spring min D Status Deficiency: <20 ng/mL (50nmol/L) Insufficiency: 20-30 ng/mL (50-75 nmol/L) Sufficiency: 30-100 ng/mL (75-250 nmol/L) Toxicity: >100 ng/mL (>250 nmol/L) Performed By: #### L 501.080 #### [facility] [address] [place], [address] Bedside Glucoseon 05-23-2025 FINGERSTICK GLU 114 mg/dL High 74-106 [facility] Comment on above: Result Comment: MINDY GEMENT OF PATIENT CARE PER NURSING PROTOCOL Performed By: #### L 501.080 #### [facility] [address] [place], [address] FINGERSTICK GLU 140 mg/dL High 74-106 [facility] Comment on above: Result Comment: MINDY GEMENT OF PATIENT CARE PER NURSING PROTOCOL Performed By: #### L 501.080 #### [facility] [address] [place], [address] FINGERSTICK GLU 131 mg/dL High 74-106 [facility] Comment on above: Result Comment: MINDY GEMENT OF PATIENT CARE PER NURSING PROTOCOL Performed By: #### L 501.080 #### [facility] [address] [place], [address] FINGERSTICK GLU 119 mg/dL High [address] [place] [address] Comment on above: Result Comment: MINDY GEMENT OF PATIENT CARE PER NURSING PROTOCOL Performed By: #### L 501.080 #### [facility] [address] [place], [address] Bedside Glucoseon 05-22-2025 FINGERSTICK GLU 114 mg/dL High -[address] [place] [address] Comment on above: Result Comment: MINDY GEMENT OF PATIENT CARE PER NURSING PROTOCOL Performed By: #### L 501.080 #### [facility] [address] [place], [address] FINGERSTICK GLU 141 mg/dL High [address] [place] [address] Comment on above: Result Comment: MINDY GEMENT OF PATIENT CARE PER NURSING PROTOCOL Performed By: #### L 501.080 #### [facility] [address] [place], [address] FINGERSTICK GLU 115 mg/dL High 74-106 [facility] Comment on above: Result Comment: MINDY GEMENT OF PATIENT CARE PER NURSING PROTOCOL Performed By: #### L 501.080 #### [facility] [address] [place], [address] Urinalysis, Completeon 05-22 EPI,SQUAMOUS 0-5 SEEN Normal 0-5 [facility] Comment on above: Order Comment: REHAN TER SPECIMEN Performed By: #### L 501.080 #### [facility] [address] [place], [address] RBC 0-5 SEEN Normal 0-5 [facility] Comment on above: Order Comment: REHAN TER SPECIMEN Performed By: #### L 501.080 #### [facility] [address] [place], [address] WBC 0-5 SEEN Normal 0-5 [facility] Comment on above: Order Comment: REHAN TER SPECIMEN Performed By: #### L 501.080 #### [facility] [address] [place], [address] Urine Cultureon 05-22-2025 URC Culture exhibits no growth. Normal [facility] Comment on above: Performed By: #### L 501.080 #### [facility] [address] [place], [address] Basic Metabolic Profile (BMP )on 05-21-2025 BUN/CRE 41.0 RATIO High 10-20 [facility] Comment on above: Performed By: #### L 500.2500, L100.0100 #### [facility] [address] [place], [address] Calcium [Mass/Vol] 8.8 mg/dL Normal 7.6-11.0 [facility] Comment on above: Performed By: #### L 500.2500, L100.0100 #### [facility] [address] [place], [address] Chloride [Moles/Vol] 102 mmol/L Normal 98-108 [facility] Comment on above: Performed By: #### L 500.2500, L100.0100 #### [facility] [address] [place], [address] CO2 [Moles/Vol] 25.5 mmol/L Normal 21.0-32.0 [facility] Comment on above: Performed By: #### L 500.2500, L100.0100 #### [facility] [address] [place], [address] Creatinine [Mass/Vol] 0.77 mg/dL Normal 0.70-1.20 [facility] Comment on above: Performed By: #### L 500.2500, L100.0100 #### [facility] [address] [place], [address] ECRCL 56.19 ml/min Normal 50-250 [facility] Comment on above: Performed By: #### L 500.2500, L100.0100 #### [facility] [address] [place], [address] GAP 12 Normal 5-15 [facility] Comment on above: Performed By: #### L 500.2500, L100.0100 #### [facility] [address] [place], [address] GFR/1.73 sq M.predicted among non-blacks MDRD (S/P/Bld) [Vol rate/Area] 86 mL/min/{1.73_m2} Normal >60 [facility] Comment on above: Result Comment: mL/m in/1.73m2 CKD-EPI Creatinine Equation (2020) Performed By: #### L 500.2500, L100.0100 #### [facility] [address] [place], [address] Glucose [Mass/Vol] 133 mg/dL High 70-99 [facility] Comment on above: Performed By: #### L 500.2500, L100.0100 #### [facility] [address] [place], [address] Potassium [Moles/Vol] 4.1 mmol/L Normal 3.3-5.1 [facility] Comment on above: Performed By: #### L 500.2500, L100.0100 #### [facility] [address] [place], [address] Sodium [Moles/Vol] 139 mmol/L Normal 133-145 [facility] Comment on above: Performed By: #### L 500.2500, L100.0100 #### [facility] [address] [place], [address] Urea nitrogen [Mass/Vol] 31 mg/dL High 4-19 [facility] Comment on above: Performed By: #### L 500.2500, L100.0100 #### [facility] [address] [place], [address] Bedside Glucoseon 05-21-2025 FINGERSTICK GLU 127 mg/dL High 74-106 [facility] Comment on above: Result Comment: MINDY GEMENT OF PATIENT CARE PER NURSING PROTOCOL Performed By: #### L 501.080 #### [facility] [address] [place], [address] FINGERSTICK GLU 121 mg/dL High 74-106 [facility] Comment on above: Result Comment: MINDY GEMENT OF PATIENT CARE PER NURSING PROTOCOL Performed By: #### L 501.080 #### [facility] [address] [place], [address] FINGERSTICK GLU 130 mg/dL High 74-106 [facility] Comment on above: Result Comment: MINDY GEMENT OF PATIENT CARE PER NURSING PROTOCOL Performed By: #### L 501.080 #### [facility] [address] [place], [address] Brain/Head without Contrasto n 05-21-2025 Brain/Head without Contrast [facility] Imaging Services [address] [place] [address] Brain/Head without Contrast MR#: [id number] Acct: [id number] Name: FAWN CAMERON Rep #: [id number] : 1935 M 89 From: Tra Brown MD PCP: Dr. Devan Barrera MD Status: REG CLI Study: Brain/Head without Contrast Date of Exam: 04/23 11/15 Exam# [id number] Ordering Dr: Jesus Alberto Wiggins MD PROCEDURE: BRAIN/HEAD WITHOUT CONTRAST 05/21/2025 REASON FOR EXAM: PAIN TECHNIQUE: BRAIN/HEAD WITHOUT CONTRAST Coronal and Sagittal reconstruction series were provided. One or more dose reduction techniques were used (e.g., Automated exposure control, adjustment of the mA and/or kV according to patient size, use of iterative reconstruction technique. RADIATION DOSE SUMMARY: CTDlvol: 44.99 mGy DLP: 863.6 mGycm COMPARISON: None. FINDINGS: No definite acute intracranial hemorrhage. There is a small focus of extra-axial crescentic hyperdensity which appears dependently layering at the left parietal convexity (S2 image 31) of uncertain etiology. This does not have the appearance of subarachnoid hemorrhage, but may represent an extra-axial lesion such as dermoid/epidermoid cyst. There is asymmetric hypodense CSF space along the right cerebral convexity, which may reflect a chronic subdural hematoma collection versus subdural hygroma. No significant mass-effect or midline shift. Normal ventricular caliber. Mild generalized brain parenchymal volume loss, and chronic microangiopathic changes. No evidence of acute territorial infarct. Atherosclerotic vascular calcifications. Absent united ke[place]ah ocular lenses. Intact skull base and calvarium. Well-aerated paranasal sinuses and bilateral mastoid air cells. Partially imaged nasogastric tube in place. CT/Brain/Head without Contrast IMPRESSION: No definite acute intracranial hemorrhage, mass-effect or acute infarct. Mild generalized volume loss and chronic microangiopathic changes. Small crescentic extra-axial hyperdensity appears to be layering dependently at the left parietal convexity, of uncertain etiology. This does not have the appearance of subarachnoid hemorrhage. Consider MRI for further evaluation, possibly a dermoid/epidermoid lesion. Asymmetric extra-axial CSF space along the right cerebral convexity potentially reflects a chronic small subdural hematoma collection or hygroma. Reading Location: [id number] CC: Dr. Devan Barrera MD; Dr. Jesus Alberto Wiggins MD Slip Bridge Operator: Signed Normal [facility] CBC W/Diff, Automatedon 04-23 Absolute Lymph 1.20 X10 3/uL Normal 0.83-4.51 [facility] Comment on above: Performed By: #### L 500.2500, L100.0100 #### [facility] [address] [place], [address] Absolute Neut 9.3 X10 3/uL High 2.0-7.7 [facility] Comment on above: Performed By: #### L 500.2500, L100.0100 #### [facility] [address] [place], [address] Basophils/100 WBC (Bld) 0.9 % Normal 0-1 [facility] Comment on above: Performed By: #### L 500.2500, L100.0100 #### [facility] [address] [place], [address] Eosinophils/100 WBC (Bld) 1.7 % Normal 0-5 [facility] Comment on above: Performed By: #### L 500.2500, L100.0100 #### [facility] [address] [place], [address] Erythrocyte distribution width (RBC) [Ratio] 13.0 % Normal 11.6-14.6 [facility] Comment on above: Performed By: #### L 500.2500, L100.0100 #### [facility] [address] [place], [address] Hematocrit (Bld) [Volume fraction] 33.7 % Low 40-54 [facility] Comment on above: Performed By: #### L 500.2500, L100.0100 #### [facility] [address] [place], [address] Hemoglobin (Bld) [Mass/Vol] 10.9 g/dL Low 13.0-16.5 [facility] Comment on above: Performed By: #### L 500.2500, L100.0100 #### [facility] [address] [place], [address] IG% 2.200 High 0.0-0.9 [facility] Comment on above: Result Comment: IG% - Immature Granulocytes (promyelocytes, myelocytes and metamyelocytes) > 1% indicates that a LEFT SHIFT is Present. Performed By: #### L 500.2500, L100.0100 #### [facility] [address] [place], [address] Lymphocytes/100 WBC (Bld) 9.6 % Low 19-41 [facility] Comment on above: Performed By: #### L 500.2500, L100.0100 #### [facility] [address] [place], [address] MCH (RBC) [Entitic mass] 33.1 pg High 27.0-32.0 [facility] Comment on above: Performed By: #### L 500.2500, L100.0100 #### [facility] [address] [place], [address] MCHC (RBC) [Mass/Vol] 32.3 g/dL Normal 32-36 [facility] Comment on above: Performed By: #### L 500.2500, L100.0100 #### [facility] [address] [place], [address] MCV (RBC) [Entitic vol] 102.4 fL High 80-94 [facility] Comment on above: Performed By: #### L 500.2500, L100.0100 #### [facility] [address] [place], [address] Monocytes/100 WBC (Bld) 10.9 % High 0-10 [facility] Comment on above: Performed By: #### L 500.2500, L100.0100 #### [facility] [address] [place], [address] Neutrophils/100 WBC (Bld) 74.7 % High 47-70 [facility] Comment on above: Performed By: #### L 500.2500, L100.0100 #### [facility] [address] [place], [address] Nucleated RBC (Bld) [#/Vol] 0 10*3/uL Normal 0-5 [facility] Comment on above: Performed By: #### L 500.2500, L100.0100 #### [facility] [address] [place], [address] Platelet mean volume (Bld) [Entitic vol] 9.4 fL Normal 6.2-12.0 [facility] Comment on above: Performed By: #### L 500.2500, L100.0100 #### [facility] [address] [place], [address] Platelets (Bld) [#/Vol] 442 10*3/uL Normal 150-450 [facility] Comment on above: Performed By: #### L 500.2500, L100.0100 #### [facility] [address] [place], [address] RBC (Bld) [#/Vol] 3.29 10*6/uL Low 4.6-6.2 [facility] Comment on above: Performed By: #### L 500.2500, L100.0100 #### [facility] [address] [place], [address] RDW SD 48.3 fl High 35.1-43.9 [facility] Comment on above: Performed By: #### L 500.2500, L100.0100 #### [facility] [address] [place], [address] WBC (Bld) [#/Vol] 12.5 10*3/uL High 4.4-11.0 [facility] Comment on above: Performed By: #### L 500.2500, L100.0100 #### [facility] [address] [place], [address] Chest PA and Lateralon 05-21 Chest PA and Lateral [facility] Imaging Services [address] [place] [address] Chest PA and Lateral MR#: [id number] Acct: [id number] Name: FAWN CAMERON Rep #: [id number] : 1935 M 89 From: Tra Brown MD PCP: Dr. Devan Barrera MD Status: ADM IN Study: Chest PA and Lateral Date of Exam: 05/21/25 Exam# [id number] Ordering Dr: Jesus Alberto Wiggins MD PROCEDURE: CHEST PA AND LATERAL 05/21/2025 REASON FOR EXAM: INCREASED CONFUSION TECHNIQUE: CHEST PA AND LATERAL COMPARISON: None. FINDINGS: Devices: Partially imaged enteric tube traverses midline extending below the diaphragm into the upper abdomen, distal tip collimated from view. Lungs/Pleura: Clear. No pneumothorax or pleural effusion. Heart/Mediastinum: Normal in size. Aortic arch calcification. Bones/Soft tissues: Qualitative osteopenia. Degenerative changes of the spine and right shoulder. Grossly intact left shoulder total reverse arthroplasty hardware. RAD/Chest PA and Lateral IMPRESSION: No acute cardiopulmonary disease. Reading Location: [id number] CC: Dr. Devan Barrera MD; Dr. Jesus Alberto Wiggins MD Slip Bridge Operator: Signed Normal [facility] Urinalysis, Completeon 05-21 BACTERIA 0 SEEN Normal None Seen [facility] Comment on above: Order Comment: REHAN TER SPECIMEN Performed By: #### L 501.080 #### [facility] [address] [place], [place], [address] Mucus Ql (Urine sed) 0 SEEN Normal [facility] Comment on above: Order Comment: [facility] SPECIMEN Performed By: #### L 501.080 #### [facility] [address] [place], [place], [address] CBC panel Auto (Bld)on 05-20 Erythrocyte distribution width (RBC) [Ratio] 13.0 % 11.5 - 14.5 % [facility] Hematocrit (Bld) [Volume fraction] 36.6 % Low 41.0 - 52.0 % [facility] Hemoglobin (Bld) [Mass/Vol] 11.5 g/dL Low 13.5 - 17.5 g/dL [facility] Interpretation and review of laboratory results Abnormal [facility] MCH (RBC) [Entitic mass] 33.1 pg 26.0 - 34.[address] [facility] MCHC (RBC) [Mass/Vol] 31.4 g/dL Low 32.0 - 36.0 g/dL [facility] MCV (RBC) [Entitic vol] 106 fL High 80 - [address] [facility] Nucleated RBC/100 WBC (Bld) [Ratio] 0.0 % [facility] Platelets (Bld) [#/Vol] 456 10*3/uL High [facility] RBC (Bld) [#/Vol] 3.47 10*6/uL Low [facility] WBC (Bld) [#/Vol] 13.0 10*3/uL High [facility] Erythrocyte distribution width (RBC) [Ratio] 13.0 % Normal 11.5-14.5 [facility] Comment on above: Performed By: #### 2 4323-8 #### KALIN OSBORN ([id number]) [facility] ([facility]) [address] [place] [address] Hematocrit (Bld) [Volume fraction] 36.6 % Low 41.0-52.0 [facility] Comment on above: Performed By: #### 2 4323-8 #### KALIN OSBORN ([id number]) [facility] ([facility]) [address] [place] [address] Hemoglobin (Bld) [Mass/Vol] 11.5 g/dL Low 13.5-17.5 [facility] Comment on above: Performed By: #### 2 4323-8 #### KALIN OSBORN ([id number]) [facility] ([facility]) [address] [place] [address] MCH (RBC) [Entitic mass] 33.1 pg Normal 26.0-34.0 [facility] Comment on above: Performed By: #### 2 4322-8 #### KALIN OSBORN ([id number]) [facility] ([facility]) [address] [place] [address] MCHC (RBC) [Mass/Vol] 31.4 g/dL Low 32.0-36.0 [facility] Comment on above: Performed By: #### 2 4322-8 #### KALIN OSBORN ([id number]) [facility] ([facility]) [address] [place] [address] MCV (RBC) [Entitic vol] 106 fL High 80-100 [facility] Comment on above: Performed By: #### 2 432-8 #### KALIN OSBORN ([id number]) [facility] ([facility]) [address] [place] [address] Nucleated RBC/100 WBC (Bld) [Ratio] 0.0 /100 WBCs Normal 0.0-0.0 [facility] Comment on above: Performed By: #### 2 4323-8 #### KALIN OSBORN ([id number]) [facility] ([facility]) [address] [place] [address] Platelets (Bld) [#/Vol] 456 x10*3/uL High 150-450 [facility] Comment on above: Performed By: #### 2 4323-8 #### KALIN OSBORN ([id number]) [facility] ([facility]) [address] [place] [address] RBC (Bld) [#/Vol] 3.47 x10*6/uL Low 4.50-5.90 [facility] Comment on above: Performed By: #### 2 4323-8 #### KALIN OSBORN ([id number]) [facility] ([facility]) [address] [place] [address] WBC (Bld) [#/Vol] 13.0 x10*3/uL High 4.4-11.3 [facility] Comment on above: Performed By: #### 2 4323-8 #### KALIN OSBORN ([id number]) [facility] ([facility]) [address] [place] [address] Magnesiumon 05-20-2025 Magnesium [Mass/Vol] 1.92 mg/dL 1.60 - 2.40 mg/dL [facility] Magnesium [Mass/Vol] 1.92 mg/dL Normal 1.60-2.40 [facility] Comment on above: Performed By: #### 2 4323-8 #### KALIN OSBORN ([id number]) [facility] ([facility]) [address] [place] [address] Magnesium [Mass/Vol]on 05-20 Interpretation and review of laboratory results Normal [facility] No Panel Informationon 05-[address] [facility] Renal function 2000 panelon 05-20-2025 Albumin BCP dye [Mass/Vol] 3.2 g/dL Low 3.4 - 5.0 g/dL [facility] Anion gap [Moles/Vol] 12 mmol/L 10 - 2 0 mmol/L [facility] Calcium [Mass/Vol] 8.8 mg/dL 8.6 - 10. 6 mg/dL [facility] Chloride [Moles/Vol] 104 mmol/L 98 - 10 7 mmol/L [facility] CO2 [Moles/Vol] 28 mmol/L 21 - 32 mmol/L [facility] Creatinine [Mass/Vol] 0.53 mg/dL 0.50 - 1.30 mg/dL [facility] eGFR - PINF [facility] Comment on above: Calculations of leonides mated GFR are performed using the 2020 CKD-EPI Study Refit equation without the race variable for the IDMS-Traceable creatinine methods. https://jasn.asnjournals.org/content//ASN.55318 95983 Glucose [Mass/Vol] 125 mg/dL High 74 - 99 mg/dL [facility] Interpretation and review of laboratory results Abnormal [facility] Phosphate [Mass/Vol] 3.8 mg/dL 2.5 - 4 .9 mg/dL [facility] Potassium [Moles/Vol] 4.0 mmol/L 3.5 - 5.3 mmol/L [facility] Sodium [Moles/Vol] 140 mmol/L 136 - 145 mmol/L [facility] Urea nitrogen [Mass/Vol] 26 mg/dL High 6 - 23 mg/dL [facility] Albumin BCP dye [Mass/Vol] 3.2 g/dL Low 3.4-5.0 [facility] Comment on above: Performed By: #### 2 4323-8 #### KALIN OSBRON ([id number]) [facility] ([facility]) [address] [place] [address] Anion gap [Moles/Vol] 12 mmol/L Normal 10-20 [facility] Comment on above: Performed By: #### 2 4323-8 #### KALIN OSBORN ([id number]) [facility] ([facility]) [facility] [place] [address] Calcium [Mass/Vol] 8.8 mg/dL Normal 8.6-10.6 [facility] Comment on above: Performed By: #### 2 4323-8 #### KALIN OSBORN ([id number]) [facility] ([facility]) [address] [place] [address] Chloride [Moles/Vol] 104 mmol/L Normal 98-107 [facility] Comment on above: Performed By: #### 2 4323-8 #### KALIN OSBORN ([id number]) [facility] ([facility]) [address] [place] [address] CO2 [Moles/Vol] 28 mmol/L Normal 21-32 [facility] Comment on above: Performed By: #### 2 4323-8 #### KALIN OSBORN ([id number]) [facility] ([facility]) [address] [place] [address] 28171 Creatinine [Mass/Vol] 0.53 mg/dL Normal 0.50-1.30 [facility] Comment on above: Performed By: #### 2 4323-8 #### KALIN OSBORN ([id number]) [facility] ([facility]) [address] [place] [address] 89214 Glomerular filtration rate >90 Normal >60 [facility] Comment on above: Result Comment: Calc ulations of estimated GFR are performed using the 2020 CKD-EPI Study Refit equation without the race variable for the IDMS-Traceable creatinine methods. https://jasn.asnjournals.org/content/early//ASN.51146 98445 Performed By: #### 2 4323-8 #### KALIN OSBORN ([id number]) [facility] ([facility]) [address] [place] [address] 98457 Glucose [Mass/Vol] 125 mg/dL High 74-99 [facility] Comment on above: Performed By: #### 2 4323-8 #### KALIN OSBORN ([id number]) [facility] ([facility]) [address] [place] [address] 45632 Phosphate [Mass/Vol] 3.8 mg/dL Normal 2.5-4.9 [facility] Comment on above: Performed By: #### 2 4323-8 #### KALIN OSBORN ([id number]) [facility] ([facility]) [facility] [place] [address] Potassium [Moles/Vol] 4.0 mmol/L Normal 3.5-5.3 [facility] Comment on above: Performed By: #### 2 4323-8 #### KALIN OSBORN ([id number]) [facility] ([facility]) [address] [place] [address] 59043 Sodium [Moles/Vol] 140 mmol/L Normal 136-145 [facility] Comment on above: Performed By: #### 2 4323-8 #### KALIN OSBORN ([id number]) [facility] ([facility]) [address] [place] [address] 36082 Urea nitrogen [Mass/Vol] 26 mg/dL High 6-23 [facility] Comment on above: Performed By: #### 2 4323-8 #### GAGNON IRENA ([id number]) [facility] ([facility]) [address] [place] [address] 97022 XR ABDOMEN 1 VIEWon 05-19-20 XR ABDOMEN 1 VIEW Interpreted By: Oj Regan, STUDY: XR ABDOMEN 1 VIEW; 05/19/2025 11:35 am INDICATION: Signs/Symptoms:eval dobhoff placement. COMPARISON: 05/15/2025. ACCESSION NUMBER(S): [id number] ORDERING CLINICIAN: ELAINE MADRIGAL FINDINGS: Dobbhoff tube [...] Oj Regan 05/19/2025 12:02 PM Dictation workstation: [id number] [facility] XR Abdomen Single viewon 1. Dobbhoff tube overlies the 2nd duodenum. Contrast within nondistended colonic loops. Signed by: Oj Regan 05/19/2025 12:02 PM Dictation workstation: [id number] MMODAL Interpreted By: Oj Regan, STUDY: XR ABDOMEN 1 VIEW; 05/19/2025 11:35 am INDICATION: Signs/Symptoms:eval dobhoff placement. COMPARISON: 05/15/2025. ACCESSION NUMBER(S): [id number] ORDERING CLINICIAN: ELAINE MADRIGAL FINDINGS: Dobbhoff tube overlies the 2nd duodenum. There is contrast in nondistended colonic loops. Limited evaluation of pneumoperitoneum on supine imaging, however no gross evidence of free air is noted. Right midlung atelectasis. Osseous structures demonstrate no acute bony changes. [facility] MMODAL Aidee Regan MD - 05/19/2025 Interpreted By: Oj Regan, STUDY: XR ABDOMEN 1 VIEW; 05/19/2025 11:35 am INDICATION: Signs/Symptoms:eval dobhoff placement. COMPARISON: 05/15/2025. ACCESSION NUMBER(S): [id number] ORDERING CLINICIAN: ELAINE MADRIGAL FINDINGS: Dobbhoff tube [...] Oj Regan 05/19/2025 12:02 PM Dictation workstation: [id number] [facility] Work Phone: Radiology Study observation (narrative) [facility] Work Phone: XR Abdomen Single viewOrdere d By: Aidee Regan on 05-19-[address] [facility] Work Phone: RF videography Hypopharynx a nd Esophagus Views for swallowing function W speech and W barium contrast Julito 05-16-2025 Interpreted By: Antonio Mccollum and Nelson Camree STUDY: [place] MODIFIED BARIUM SWALLOW STUDY;; 05/14/2025 1:53 pm INDICATION: Signs/Symptoms:R/o aspiration, oropharyngeal dysphagia. COMPARISON: None. ACCESSION NUMBER(S): [id number] ORDERING CLINICIAN: LAY WALDROP TECHNIQUE: MBSS completed. Informed verbal consent obtained prior to completion of exam. Trials of thin, nectar thick, honey thick, puree, soft-solids, and regular solids given. SECTION 8 PROPERTY MANAGER: Shannon Santos Phone/Pager: [phone] SPEECH FINDINGS: Speech-Language Pathology Inpatient Modified Barium [...] tsp/straw, purees, and regular solids were given. 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 [...] risk of aspiration w/ continued PO intake SECTION 8 PROPERTY MANAGER PLAN: Skilled SECTION 8 PROPERTY MANAGER Services: Skilled SECTION 8 PROPERTY MANAGER intervention for dysphagia is warranted. SECTION 8 PROPERTY MANAGER Frequency: pending GOC decisions made Discussed POC: [...] given on all accounts. Treatment Provided Today: SECTION 8 PROPERTY MANAGER provided extensive education and training to pt/pt [...] further evaluation by medical specialists, as applicable. SECTION 8 PROPERTY MANAGER Impressions with Severity Rating: Pt awake/alert, consistently cooperative/able to follow commands, and responded appropriately to conversation/question s by SECTION 8 PROPERTY MANAGER. Missing dentition noted. Severe oropharyngeal dysphagia. Prolonged [...] in valleculae/pyriforms w/ (more content not included)... MMODAL Antonio Bullock MD - 05/16/2025 Interpreted By: Antonio Bullock and Nelson Camree STUDY: [place] MODIFIED BARIUM SWALLOW STUDY;; 05/14/2025 1:53 pm INDICATION: Signs/Symptoms:R/o aspiration, oropharyngeal dysphagia. COMPARISON: None. ACCESSION NUMBER(S): [id number] ORDERING CLINICIAN: LAY WALDROP TECHNIQUE: MBSS completed. Informed verbal consent obtained prior to completion of exam. Trials of thin, nectar thick, honey thick, puree, soft-solids, and regular solids given. SECTION 8 PROPERTY MANAGER: Shannon Santos Phone/Pager: [phone] SPEECH FINDINGS: Speech-Language Pathology Inpatient Modified Barium [...] tsp/straw, purees, and regular solids were given. 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 [...] risk of aspiration w/ continued PO intake SECTION 8 PROPERTY MANAGER PLAN: Skilled SECTION 8 PROPERTY MANAGER Services: Skilled SECTION 8 PROPERTY MANAGER intervention for dysphagia is warranted. SECTION 8 PROPERTY MANAGER Frequency: pending GOC decisions made Discussed POC: [...] given on all accounts. Treatment Provided Today: SECTION 8 PROPERTY MANAGER provided extensive education and training to pt/pt [...] further evaluation by medical specialists, as applicable. SECTION 8 PROPERTY MANAGER Impressions with Severity Rating: Pt awake/alert, consistently cooperative/able to follow commands, and responded appropriately to conversation/question s by SECTION 8 PROPERTY MANAGER. Missing dentition noted. Severe oropharyngeal dysphagia. Prolonged [...] in significant mike (more content not included)... [facility] Work Phone: RF videography Hypopharynx a nd Esophagus Views for swallowing function W speech and W barium contrast POOrdered By: Antonio Lane on 05-16-[address] [facility] Work Phone: XR Abdomen Single viewon 1. Dobbhoff tube wit h the tip projecting over the expected position of the proximal duodenum. 2. Nonobstructive bowel-gas pattern. 3. Linear opacity in the right mid/lower lung zone, likely atelectatic change. I personally reviewed the images/study and I agree with the findings as stated by resident Freedom Luna. This study was interpreted at [facility], [place], [place]. MACRO: None Signed by: Michelle Blackwell 05/16/2025 6:04 AM Dictation workstation: [id number] MMODAL Interpreted By: Michelle Hodges and Ritchie Brandon STUDY: XR ABDOMEN 1 VIEW; 05/15/2025 5:16 pm INDICATION: Signs/Symptoms:Confir m DHT placement. COMPARISON: CT chest abdomen pelvis 05/10/2025. ACCESSION NUMBER(S): [id number] ORDERING CLINICIAN: LAY WALDROP FINDINGS: Dobbhoff tube [...] CT chest abdomen pelvis 05/10/2025. ACCESSION NUMBER(S): [id number] ORDERING CLINICIAN: LAY WALDROP FINDINGS: Dobbhoff tube [...] Freedom Luna. This study was interpreted at [facility], [place], [place]. MACRO: None Signed by: Michelle Blackwell 05/16/2025 6:04 AM Dictation workstation: [id number] [facility] Work Phone: XR Abdomen Single viewOrdere d By: Michelle Blackwell on 05-16-[address] [facility] Work Phone: Glucose Test strip manual (B ld) [Mass/Vol]on 05-15-2025 Glucose [Mass/Vol] 127 mg/dL High 74 - 99 mg/dL [facility] Interpretation and review of laboratory results Abnormal [facility] Glucose [Mass/Vol] 127 mg/dL High 74-99 [facility] Comment on above: Performed By: #### 5 7021-8 #### GAGNON IRENA ([id number]) [facility] ([facility]) [address] [place] [address] XR ABDOMEN 1 VIEWon 05-15-20 XR ABDOMEN 1 VIEW Interpreted By: Michelle Hodges and Ritchie Brandon STUDY: XR ABDOMEN 1 VIEW; 05/15/2025 5:16 pm INDICATION: Signs/Symptoms:Confir m DHT placement. COMPARISON: CT chest abdomen pelvis 05/10/2025. ACCESSION NUMBER(S): [id number] ORDERING CLINICIAN: LAY WALDROP FINDINGS: Dobbhoff tube [...] Freedom Luna. This study was interpreted at [facility], [place], [place]. MACRO: None Signed by: Michelle Blackwell 05/16/2025 6:04 AM Dictation workstation: [id number] Normal [facility] Comment on above: Order Comment: RN to release order via task on Brain when patient is ready for x-ray confirmation of feeding tube placement. XR Abdomen Single viewon Radiology Study observation (narrative) [facility] Work Phone: CBC panel Auto (Bld)on 05-14 Erythrocyte distribution width (RBC) [Ratio] 12.4 % 11.5 - 14.5 % [facility] Hematocrit (Bld) [Volume fraction] 35.5 % Low 41.0 - 52.0 % [facility] Hemoglobin (Bld) [Mass/Vol] 11.3 g/dL Low 13.5 - 17.5 g/dL [facility] Interpretation and review of laboratory results Abnormal [facility] MCH (RBC) [Entitic mass] 33.6 pg 26.0 - 34.[address] [facility] MCHC (RBC) [Mass/Vol] 31.8 g/dL Low 32.0 - 36.0 g/dL [facility] MCV (RBC) [Entitic vol] 106 fL High 80 - [address] [facility] Nucleated RBC/100 WBC (Bld) [Ratio] 0.0 % [facility] Platelets (Bld) [#/Vol] 175 10*3/uL [facility] RBC (Bld) [#/Vol] 3.36 10*6/uL Low [facility] WBC (Bld) [#/Vol] 10.0 10*3/uL [facility] Erythrocyte distribution width (RBC) [Ratio] 12.4 % Normal 11.5-14.5 [facility] Comment on above: Performed By: #### 5 7021-8 #### GAGNON IRENA ([id number]) [facility] ([facility]) [address] [place] [address] 60299 Hematocrit (Bld) [Volume fraction] 35.5 % Low 41.0-52.0 [facility] Comment on above: Performed By: #### 5 7021-8 #### KALIN OSBORN ([id number]) [facility] ([facility]) [address] [place] [address] 03336 Hemoglobin (Bld) [Mass/Vol] 11.3 g/dL Low 13.5-17.5 [facility] Comment on above: Performed By: #### 5 7021-8 #### KALIN OSBORN ([id number]) [facility] ([facility]) [address] [place] [address] 84389 MCH (RBC) [Entitic mass] 33.6 pg Normal 26.0-34.0 [facility] Comment on above: Performed By: #### 5 7021-8 #### KALIN OSBORN ([id number]) [facility] ([facility]) [address] [place] [address] 55370 MCHC (RBC) [Mass/Vol] 31.8 g/dL Low 32.0-36.0 [facility] Comment on above: Performed By: #### 5 7021-8 #### KALIN OSBORN ([id number]) [facility] ([facility]) [address] [place] [address] 89556 MCV (RBC) [Entitic vol] 106 fL High 80-100 [facility] Comment on above: Performed By: #### 5 7021-8 #### KALIN OSBORN ([id number]) [facility] ([facility]) [address] [place] [address] 45374 Nucleated RBC/100 WBC (Bld) [Ratio] 0.0 /100 WBCs Normal 0.0-0.0 [facility] Comment on above: Performed By: #### 5 7021-8 #### KALIN OSBORN ([id number]) [facility] ([facility]) [address] [place] [address] 41138 Platelets (Bld) [#/Vol] 175 x10*3/uL Normal 150-450 [facility] Comment on above: Performed By: #### 5 7021-8 #### KALIN OSBORN ([id number]) [facility] ([facility]) [facility] [place] [address] RBC (Bld) [#/Vol] 3.36 x10*6/uL Low 4.50-5.90 [facility] Comment on above: Performed By: #### 5 7021-8 #### KALIN MILLSLI ([id number]) [facility] ([facility]) [facility] [place] [address] WBC (Bld) [#/Vol] 10.0 x10*3/uL Normal 4.4-11.3 [facility] Comment on above: Performed By: #### 5 7021-8 #### KALIN OSBORN ([id number]) [facility] ([facility]) [address] [place] [address] [place] MODIFIED BARIUM SWALLOW S [facility] 05-14-2025 [place] MODIFIED BARIUM SWALLOW STUDY Interpreted By: Antonio Bullock and Nelson Camree STUDY: [place] MODIFIED BARIUM SWALLOW STUDY;; 05/14/2025 1:53 pm INDICATION: Signs/Symptoms:R/o aspiration, oropharyngeal dysphagia. COMPARISON: None. ACCESSION NUMBER(S): [id number] ORDERING CLINICIAN: LAY WALDROP TECHNIQUE: MBSS completed. Informed verbal consent obtained prior to completion of exam. Trials of thin, nectar thick, honey thick, puree, soft-solids, and regular solids given. SECTION 8 PROPERTY MANAGER: Shannon Santos Phone/Pager: [phone] SPEECH FINDINGS: Speech-Language Pathology Inpatient Modified Barium [...] tsp/straw, purees, and regular solids were given. 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 [...] risk of aspiration w/ continued PO intake SECTION 8 PROPERTY MANAGER PLAN: Skilled SECTION 8 PROPERTY MANAGER Services: Skilled SECTION 8 PROPERTY MANAGER intervention for dysphagia is warranted. SECTION 8 PROPERTY MANAGER Frequency: pending GOC decisions made Discussed POC: [...] given on all accounts. Treatment Provided Today: SECTION 8 PROPERTY MANAGER provided extensive education and training to pt/pt [...] further evaluation by medical specialists, as applicable. SECTION 8 PROPERTY MANAGER Impressions with Severity Rating: Pt awake/alert, consistently cooperative/able to follow commands, and responded appropriately to conversation/question s by SECTION 8 PROPERTY MANAGER. Missing dentition noted. Severe oropharyngeal dysphagia. Prolonged [...] per bolu (more content not included)... Normal [facility] RF videography Hypopharynx a nd Esophagus Views for swallowing function W speech and W barium contrast Julito 05-14-2025 Radiology Study observation (narrative) [facility] Work Phone: SECTION 8 PROPERTY MANAGER Modified Barium Swallow Evaluationon 05-14-2025 FLAVIA Humphrey [...] tsp/straw, purees, and regular solids were given. 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 [...] risk of aspiration w/ continued PO intake SECTION 8 PROPERTY MANAGER PLAN: Skilled SECTION 8 PROPERTY MANAGER Services: Skilled SECTION 8 PROPERTY MANAGER intervention for dysphagia is warranted. SECTION 8 PROPERTY MANAGER Frequency: pending GOC decisions made Discussed POC: [...] given on all accounts. Treatment Provided Today: SECTION 8 PROPERTY MANAGER provided extensive education and training to pt/pt [...] further evaluation by medical specialists, as applicable. SECTION 8 PROPERTY MANAGER Impressions with Severity Rating: Pt awake/alert, consistently cooperative/able to follow commands, and responded appropriately to conversation/question s by SECTION 8 PROPERTY MANAGER. Missing dentition noted. Severe oropharyngeal dysphagia. Prolonged [...] closure; however, eventual (more content not included)... [facility] Work Phone: CBC panel Auto (Bld)on 05-13 Erythrocyte distribution width (RBC) [Ratio] 12.4 % 11.5 - 14.5 % [facility] Hematocrit (Bld) [Volume fraction] 35.0 % Low 41.0 - 52.0 % [facility] Hemoglobin (Bld) [Mass/Vol] 10.8 g/dL Low 13.5 - 17.5 g/dL [facility] Interpretation and review of laboratory results Abnormal [facility] MCH (RBC) [Entitic mass] 33.1 pg 26.0 - 34.[address] [facility] MCHC (RBC) [Mass/Vol] 30.9 g/dL Low 32.0 - 36.0 g/dL [facility] MCV (RBC) [Entitic vol] 107 fL High 80 - [address] [facility] Nucleated RBC/100 WBC (Bld) [Ratio] 0.0 % [facility] Platelets (Bld) [#/Vol] 151 10*3/uL [facility] RBC (Bld) [#/Vol] 3.26 10*6/uL Low [facility] WBC (Bld) [#/Vol] 12.4 10*3/uL High [facility] Erythrocyte distribution width (RBC) [Ratio] 12.4 % Normal 11.5-14.5 [facility] Comment on above: Performed By: #### 5 7021-8 #### KALIN OSBORN ([id number]) [facility] ([facility]) [address] [place] [address] Hematocrit (Bld) [Volume fraction] 35.0 % Low 41.0-52.0 [facility] Comment on above: Performed By: #### 5 7021-8 #### KALIN OSBORN ([id number]) [facility] ([facility]) [address] [place] [address] Hemoglobin (Bld) [Mass/Vol] 10.8 g/dL Low 13.5-17.5 [facility] Comment on above: Performed By: #### 5 7021-8 #### KALIN OSBORN ([id number]) [facility] ([facility]) [address] [place] [address] 56697 MCH (RBC) [Entitic mass] 33.1 pg Normal 26.0-34.0 [facility] Comment on above: Performed By: #### 5 7021-8 #### KALIN OSBORN ([id number]) [facility] ([facility]) [address] [place] [address] 30598 MCHC (RBC) [Mass/Vol] 30.9 g/dL Low 32.0-36.0 [facility] Comment on above: Performed By: #### 5 7021-8 #### KALIN OSBORN ([id number]) [facility] ([facility]) [address] [place] [address] 25191 MCV (RBC) [Entitic vol] 107 fL High 80-100 [facility] Comment on above: Performed By: #### 5 7021-8 #### KALIN OSBORN ([id number]) [facility] ([facility]) [address] [place] [address] 65350 Nucleated RBC/100 WBC (Bld) [Ratio] 0.0 /100 WBCs Normal 0.0-0.0 [facility] Comment on above: Performed By: #### 5 7021-8 #### KALIN OSBORN ([id number]) [facility] ([facility]) [address] [place] [address] 86853 Platelets (Bld) [#/Vol] 151 x10*3/uL Normal 150-450 [facility] Comment on above: Performed By: #### 5 7021-8 #### KALIN OSBORN ([id number]) [facility] ([facility]) [address] [place] [address] 14196 RBC (Bld) [#/Vol] 3.26 x10*6/uL Low 4.50-5.90 [facility] Comment on above: Performed By: #### 5 7021-8 #### KALIN OSBORN ([id number]) [facility] ([facility]) [address] [place] [address] 00743 WBC (Bld) [#/Vol] 12.4 x10*3/uL High 4.4-11.3 [facility] Comment on above: Performed By: #### 5 7021-8 #### KALIN OSBORN ([id number]) [facility] ([facility]) [address] [place] [address] 38095 Magnesiumon 05-13-2025 Magnesium [Mass/Vol] 2.35 mg/dL 1.60 - 2.40 mg/dL [facility] Magnesium [Mass/Vol] 2.35 mg/dL Normal 1.60-2.40 [facility] Comment on above: Performed By: #### 5 7021-8 #### KALIN OSBORN ([id number]) [facility] ([facility]) [address] [place] [address] 63323 Magnesium [Mass/Vol]on 05-13 Interpretation and review of laboratory results Normal [facility] No Panel Informationon 05-[address] [facility] Renal function 2000 panelon 05-13-2025 Albumin BCP dye [Mass/Vol] 3.2 g/dL Low 3.4 - 5.0 g/dL [facility] Anion gap [Moles/Vol] 13 mmol/L 10 - 2 0 mmol/L [facility] Calcium [Mass/Vol] 8.0 mg/dL Low 8.6 - 10. 6 mg/dL [facility] Chloride [Moles/Vol] 107 mmol/L 98 - 10 7 mmol/L [facility] CO2 [Moles/Vol] 24 mmol/L 21 - 32 mmol/L [facility] Creatinine [Mass/Vol] 0.62 mg/dL 0.50 - 1.30 mg/dL [facility] eGFR - PINF [facility] Comment on above: Calculations of leonides mated GFR are performed using the 2020 CKD-EPI Study Refit equation without the race variable for the IDMS-Traceable creatinine methods. https://jasn.asnjournals.org/content//ASN.49813 47836 Glucose [Mass/Vol] 90 mg/dL 74 - 99 mg/dL [facility] Interpretation and review of laboratory results Abnormal [facility] Phosphate [Mass/Vol] 3.0 mg/dL 2.5 - 4 .9 mg/dL [facility] Potassium [Moles/Vol] 4.2 mmol/L 3.5 - 5.3 mmol/L [facility] Sodium [Moles/Vol] 140 mmol/L 136 - 145 mmol/L [facility] Urea nitrogen [Mass/Vol] 22 mg/dL 6 - 23 mg/dL [facility] Albumin BCP dye [Mass/Vol] 3.2 g/dL Low 3.4-5.0 [facility] Comment on above: Performed By: #### 5 7021-8 #### KALIN OSBORN ([id number]) [facility] ([facility]) [address] [place] [address] 09125 Anion gap [Moles/Vol] 13 mmol/L Normal 10-20 [facility] Comment on above: Performed By: #### 5 7021-8 #### KALIN OSBORN ([id number]) [facility] ([facility]) [address] [place] [address] 49276 Calcium [Mass/Vol] 8.0 mg/dL Low 8.6-10.6 [facility] Comment on above: Performed By: #### 5 7021-8 #### KALIN OSBORN ([id number]) [facility] ([facility]) [address] [place] [address] Chloride [Moles/Vol] 107 mmol/L Normal 98-107 [facility] [facility] Comment on above: Performed By: #### 5 7021-8 #### KALIN OSBORN ([id number]) [facility] ([facility]) [address] [place] [address] 87823 CO2 [Moles/Vol] 24 mmol/L Normal 21-32 [facility] Comment on above: Performed By: #### 5 7021-8 #### KALIN OSBORN ([id number]) [facility] ([facility]) [address] [place] [address] 21243 Creatinine [Mass/Vol] 0.62 mg/dL Normal 0.50-1.30 [facility] Comment on above: Performed By: #### 5 7021-8 #### KALIN OSBORN ([id number]) [facility] ([facility]) [address] [place] [address] 80302 Glomerular filtration rate >90 Normal >60 [facility] Comment on above: Result Comment: Calc ulations of estimated GFR are performed using the 2020 CKD-EPI Study Refit equation without the race variable for the IDMS-Traceable creatinine methods. https://jasn.asnjournals.org/content/early//ASN.83776 81226 Performed By: #### 5 7021-8 #### KALIN OSBORN ([id number]) [facility] ([facility]) [address] [place] [address] 33384 Glucose [Mass/Vol] 90 mg/dL Normal 74-99 [facility] Comment on above: Performed By: #### 5 7021-8 #### KALIN OSBORN ([id number]) [facility] ([facility]) [address] [place] [address] 62933 Phosphate [Mass/Vol] 3.0 mg/dL Normal 2.5-4.9 [facility] Comment on above: Performed By: #### 5 7021-8 #### KALIN OSBORN ([id number]) [facility] ([facility]) [address] [place] [address] Potassium [Moles/Vol] 4.2 mmol/L Normal 3.5-5.3 [facility] Comment on above: Performed By: #### 5 7021-8 #### KALIN OSBORN ([id number]) [facility] ([facility]) [address] [place] [address] 55541 Sodium [Moles/Vol] 140 mmol/L Normal 136-145 [facility] Comment on above: Performed By: #### 5 7021-8 #### KALIN OSBORN ([id number]) [facility] ([facility]) [address] [place] [address] 41640 Urea nitrogen [Mass/Vol] 22 mg/dL Normal 6-23 [facility] Comment on above: Performed By: #### 5 7021-8 #### KALIN OSBORN ([id number]) [facility] ([facility]) [address] [place] [address] 10136 TRANSTHORACIC ECHO (TTE) [facility] 05-13-2025 TRANSTHORACIC ECHO (TTE) [facility], [address] [place] [address] and TRANSTHORACIC ECHOCARDIOGRAM REPORT Patient Name: FAWN Lee Physician: [id number] Noelle Roberts MD Study Date: 05/13/2025 Ordering Provider: [id number] LAY WALDROP MRN/PID: [id number] Fellow: Nurse: Date of /Age: 5 1935 Molder Inflated Ball: Enmanuel sarmiento RDCS, RVT Gender assigned at M Additional Staff: : Height: 167.64 cm Admit Date: 05/10/2025 Weight: 66.23 kg Admission Status: Inpatient - STAT BSA / BMI: 1.75 m2 / 23.57 kg/m2 Blood Pressure: 120/77 mmHg Department Location: [place] [address] Study Type: TRANSTHORACIC ECHO (TTE) COMPLETE Diagnosis/ICD: Syncope-R55 Indication: syncopal work-up CPT Code: Echo Complete w Full Doppler-[id number] Patient History: Pertinent History: HTN, HLD, TIA, [...] previous echocardiogram(s): Compared with study dated 07/31/2024, [facility], no significant changes from the report, images [...] regurgitation. 6. Compared with study dated 07/31/2024, [facility], no significant changes from the report, images [...] LA Area A2C: 12.1 cm2 [place] A4C: 4.4 cm [place] A2C: 4.8 cm RIGHT ATRIUM: Normal Ranges: [...] 67.70 cm/s (more content not included)... Normal [facility] US Heart TransthoracicOrdere d By: Noelle Roberts on 05-13-2025 Aortic Valve Area by Continuity of Peak Velocity 1.[address] [facility] Work Phone: Aortic Valve Area by Continuity of VTI 1.[address] [facility] Work Phone: AV mn grad [address] [facility] Work Phone: AV pk grad [address] [facility] Work Phone: AV pk neetu 1.92 m/s [facility] Work Phone: LA vol index A/L 18.7 ml/m2 [facility] Work Phone: LV A4C EF 70.[address] [facility] Work Phone: LV EF 63 % [facility] Work Phone: LVIDd 4.[address] [facility] Work Phone: LVOT diam 2.[address] [facility] Work Phone: MV E/A ratio 0.[address] [facility] Work Phone: RV free wall pk S' 12.60 cm/s [facility] Work Phone: RVSP [address] [facility] Work Phone: Tricuspid annular plane systolic excursion 2.[address] [facility] Work Phone: [facility] Work Phone: US Heart Transthoracicon [facility], [address] [place] [address] and TRANSTHORACIC ECHOCARDIOGRAM REPORT Patient Name: FAWN CAMERON Reading Physician: [id number] Noelle Roberts MD Study Date: 05/13/2025 Ordering Provider: [id number] LAY WALDROP MRN/PID: [id number] Fellow: Nurse: Date of /Age: 5 1935 Molder Inflated Ball: Enmanuel sarmiento RDCS, RVT Gender assigned at M Additional Staff: : Height: 167.64 cm Admit Date: 05/10/2025 Weight: 66.23 kg Admission Status: Inpatient - STAT BSA / BMI: 1.75 m2 / 23.57 kg/m2 Blood Pressure: 120/77 mmHg Department Location: [place] [address] Study Type: TRANSTHORACIC ECHO (TTE) COMPLETE Diagnosis/ICD: Syncope-R55 Indication: syncopal work-up CPT Code: Echo Complete w Full Doppler-[id number] Patient History: Pertinent History: HTN, HLD, TIA, [...] previous echocardiogram(s): Compared with study dated 07/31/2024, [facility], no significant changes from the report, images [...] regurgitation. 6. Compared with study dated 07/31/2024, [facility], no significant changes from the report, images [...] not included)... Noelle Mullins MD - 05/13/2025 [facility], [address] [place] [address] and TRANSTHORACIC ECHOCARDIOGRAM REPORT Patient Name: FAWN CAMERON Reading Physician: [id number] Noelle Roberts MD Study Date: 05/13/2025 Ordering Provider: [id number] LAY WALDROP MRN/PID: [id number] Fellow: Nurse: Date of /Age: 5 1935 Molder Inflated Ball: Enmanuel sarmiento RDCS, RVT Gender assigned at Additional Staff: : Height: 167.64 cm Admit Date: 05/10/2025 Weight: 66.23 kg Admission Status: Inpatient - STAT BSA / BMI: 1.75 m2 / 23.57 kg/m2 Blood Pressure: 120/77 mmHg Department Location: [place] [address] Study Type: TRANSTHORACIC ECHO (TTE) COMPLETE Diagnosis/ICD: Syncope-R55 Indication: syncopal work-up CPT Code: Echo Complete w Full Doppler-[id number] Patient History: Pertinent History: HTN, HLD, TIA, [...] previous echocardiogram(s): Compared with study dated 07/31/2024, [facility], no significant changes from the report, images [...] regurgitation. 6. Compared with study dated 07/31/2024, [facility], no significant changes from the report, images [...] LA Area A2C: 12.1 cm2 [place] A4C: 4.4 cm [place] A2C: 4.8 cm RIGHT ATRIUM: Normal Ranges: [...] 0.086 m/s ( (more content not included)... [facility] Work Phone: 25-hydroxyvitamin D3 [Mass/V ol]on 05-12-2025 Deficiency: < 20 ng/ml Insufficiency: 20-29 ng/ml Sufficiency: 30-100 ng/ml This assay accurately quantifies the sum of Vitamin D3, 25-Hydroxy and Vitamin D2,25-Hydroxy. [facility] Calcidiolon 05-12-2025 25-hydroxyvitamin D3 [Mass/Vol] 18 ng/mL Low 30-100 [facility] Comment on above: Order Comment: Defic iency: < 20 ng/mlInsufficiency: 20-29 ng/mlSufficiency: 30-100 ng/mlThis assay accurately quantifies the sum of Vitamin D3, 25-Hydroxy and Vitamin D2,25-Hydroxy. Performed By: #### 5 7021-8 #### KALIN OSBORN ([id number]) [facility] ([facility]) [address] [place] [address] 61751 Cobalamin (Vitamin B12) [Mas s/Vol]on 05-12-2025 Interpretation and review of laboratory results Normal [facility] Cobalaminson 05-12-2025 Cobalamin (Vitamin B12) [Mass/Vol] 283 pg/mL Normal 211-911 [facility] Comment on above: Performed By: #### 2 4323-8 #### KALIN OSBORN ([id number]) [facility] ([facility]) [address] [place] [address] 41538 Free T4 [Mass/Vol]on Interpretation and review of laboratory results Normal [facility] Thyroxine Free testing is performed using different testing methodology at [facility] than at other [facility]. Direct result comparisons should only be made within the same method. [facility] Magnesiumon 05-12-2025 Magnesium [Mass/Vol] 1.75 mg/dL 1.60 - 2.40 mg/dL [facility] Magnesium [Mass/Vol] 1.75 mg/dL Normal 1.60-2.40 [facility] Comment on above: Performed By: #### 2 4323-8 #### KALIN OSBORN ([id number]) [facility] ([facility]) [address] [place] [address] 23227 Magnesium [Mass/Vol]on 05-12 Interpretation and review of laboratory results Normal [facility] No Panel Informationon 05-12 Interpretation and review of laboratory results Abnormal [facility] Renal function 2000 panelon 05-12-2025 Albumin BCP dye [Mass/Vol] 3.1 g/dL Low 3.4 - 5.0 g/dL [facility] Anion gap [Moles/Vol] 12 mmol/L 10 - 2 0 mmol/L [facility] Calcium [Mass/Vol] 7.2 mg/dL Low 8.6 - 10. 6 mg/dL [facility] Chloride [Moles/Vol] 109 mmol/L High 98 - 10 7 mmol/L [facility] CO2 [Moles/Vol] 22 mmol/L 21 - 32 mmol/L [facility] Creatinine [Mass/Vol] 0.66 mg/dL 0.50 - 1.30 mg/dL [facility] GFR/1.73 sq M.predicted among non-blacks MDRD (S/P/Bld) [Vol rate/Area] 90 mL/min/{1.73_m2} - PINF [facility] Comment on above: Calculations of leonides mated GFR are performed using the 2020 CKD-EPI Study Refit equation without the race variable for the IDMS-Traceable creatinine methods. https://jasn.asnjournals.org/content/early//ASN.49121 40533 Glucose [Mass/Vol] 81 mg/dL 74 - 99 mg/dL [facility] Interpretation and review of laboratory results Abnormal [facility] Phosphate [Mass/Vol] 3.0 mg/dL 2.5 - 4 .9 mg/dL [facility] Potassium [Moles/Vol] 3.5 mmol/L 3.5 - 5.3 mmol/L [facility] Sodium [Moles/Vol] 139 mmol/L 136 - 145 mmol/L [facility] Urea nitrogen [Mass/Vol] 18 mg/dL 6 - 23 mg/dL [facility] Albumin BCP dye [Mass/Vol] 3.1 g/dL Low 3.4-5.0 [facility] Comment on above: Performed By: #### 2 4323-8 #### KALIN OSBORN ([id number]) [facility] ([facility]) [address] [place] [address] 58289 Anion gap [Moles/Vol] 12 mmol/L Normal 10-20 [facility] Comment on above: Performed By: #### 2 4323-8 #### KALIN OSBORN ([id number]) [facility] ([facility]) [address] [place] [address] 85349 Calcium [Mass/Vol] 7.2 mg/dL Low 8.6-10.6 [facility] Comment on above: Performed By: #### 2 4323-8 #### KALIN OSBORN ([id number]) [facility] ([facility]) [facility] [place] [address] Chloride [Moles/Vol] 109 mmol/L High 98-107 [facility] Comment on above: Performed By: #### 2 4323-8 #### KALIN OSBORN ([id number]) [facility] ([facility]) [address] [place] [address] 47218 CO2 [Moles/Vol] 22 mmol/L Normal 21-32 [facility] Comment on above: Performed By: #### 2 4323-8 #### KALIN OSBORN ([id number]) [facility] ([facility]) [address] [place] [address] 94368 Creatinine [Mass/Vol] 0.66 mg/dL Normal 0.50-1.30 [facility] Comment on above: Performed By: #### 2 4323-8 #### KALIN OSBORN ([id number]) [facility] ([facility]) [address] [place] [address] 26824 Glomerular filtration rate/1.73 sq M.predicted 90 mL/min/1.73m*2 Normal >60 [facility] Comment on above: Result Comment: Calc ulations of estimated GFR are performed using the 2020 CKD-EPI Study Refit equation without the race variable for the IDMS-Traceable creatinine methods. https://jasn.asnjournals.org/content/early//ASN.60202 72062 Performed By: #### 2 4323-8 #### KALIN OSBORN ([id number]) [facility] ([facility]) [address] [place] [address] 18428 Glucose [Mass/Vol] 81 mg/dL Normal 74-99 [facility] Comment on above: Performed By: #### 2 4323-8 #### KALIN OSBORN ([id number]) [facility] ([facility]) [address] [place] [address] 47725 Phosphate [Mass/Vol] 3.0 mg/dL Normal 2.5-4.9 [facility] Comment on above: Performed By: #### 2 4323-8 #### KALIN OSBORN ([id number]) [facility] ([facility]) [address] [place] [address] 95453 Potassium [Moles/Vol] 3.5 mmol/L Normal 3.5-5.3 [facility] Comment on above: Performed By: #### 2 4323-8 #### KALIN OSBORN ([id number]) [facility] ([facility]) [address] [place] [address] 66976 Sodium [Moles/Vol] 139 mmol/L Normal 136-145 [facility] Comment on above: Performed By: #### 2 4323-8 #### KALIN OSBORN ([id number]) [facility] ([facility]) [address] [place] [address] 13089 Urea nitrogen [Mass/Vol] 18 mg/dL Normal 6-23 [facility] Comment on above: Performed By: #### 2 4323-8 #### KALIN OSBORN ([id number]) [facility] ([facility]) [address] [place] [address] 21976 TSH WITH REFLEX TO FREE T4 I F ABNORMALon 05-12-2025 TSH Qn 4.88 m[IU]/L High 0.44-3.98 [facility] Comment on above: Order Comment: TSH t esting is performed using different testing methodology at [facility] than at other [facility]. Direct result comparisons should only be made within the same method. Performed By: #### 2 4323-8 #### KALIN OSBORN ([id number]) [facility] ([facility]) [address] [place] [address] 99312 TSH with reflex to Free T4 i f abnormalon 05-12-2025 TSH Qn 4.88 m[IU]/L High [facility] TSH testing is performed using different testing methodology at [facility] than at other [facility]. Direct result comparisons should only be made within the same method. [facility] Thyroxine, Freeon 05-12-2025 Free T4 [Mass/Vol] 1.15 ng/dL 0.78 - 1. 48 ng/dL [facility] Thyroxine.freeon 05-12-2025 Free T4 [Mass/Vol] 1.15 ng/dL Normal 0.78-1.48 [facility] Comment on above: Order Comment: Thyro xine Free testing is performed using different testing methodology at [facility] than at other [facility]. Direct result comparisons should only be made within the same method. Performed By: #### 5 7021-8 #### GAGNON IRENA ([id number]) [facility] ([facility]) [address] [place] [address] Vitamin B12on 05-12-2025 Cobalamin (Vitamin B12) [Mass/Vol] 283 pg/mL 211 - 911 pg/mL [facility] Vitamin D 25-Hydroxy,Total ( for eval of Vitamin D levels)on 05-12-2025 25-hydroxyvitamin D3 [Mass/Vol] 18 ng/mL Low 30 - 100 ng/mL [facility] Basic metabolic 2000 panelon 05-11-2025 Anion gap [Moles/Vol] 9 mmol/L Low 10 - 2 0 mmol/L [facility] Calcium [Mass/Vol] 8.5 mg/dL Low 8.6 - 10. 6 mg/dL [facility] Chloride [Moles/Vol] 104 mmol/L 98 - 10 7 mmol/L [facility] CO2 [Moles/Vol] 30 mmol/L 21 - 32 mmol/L [facility] Creatinine [Mass/Vol] 0.89 mg/dL 0.50 - 1.30 mg/dL [facility] GFR/1.73 sq M.predicted among non-blacks MDRD (S/P/Bld) [Vol rate/Area] 82 mL/min/{1.73_m2} - PINF [facility] Comment on above: Calculations of leonides mated GFR are performed using the 2020 CKD-EPI Study Refit equation without the race variable for the IDMS-Traceable creatinine methods. https://jasn.asnjournals.org/content//ASN. 77212 Glucose [Mass/Vol] 124 mg/dL High 74 - 99 mg/dL [facility] Interpretation and review of laboratory results Abnormal [facility] Potassium [Moles/Vol] 3.6 mmol/L 3.5 - 5.3 mmol/L [facility] Sodium [Moles/Vol] 139 mmol/L 136 - 145 mmol/L [facility] Urea nitrogen [Mass/Vol] 21 mg/dL 6 - 23 mg/dL [facility] Anion gap [Moles/Vol] 9 mmol/L Low 10-20 [facility] Comment on above: Performed By: #### 2 4323-8 #### KALIN OSBORN ([id number]) [facility] ([facility]) [address] [place] [address] 66351 Calcium [Mass/Vol] 8.5 mg/dL Low 8.6-10.6 [facility] Comment on above: Performed By: #### 2 4323-8 #### KALIN OSBORN ([id number]) [facility] ([facility]) [address] [place] [address] Chloride [Moles/Vol] 104 mmol/L Normal 98-107 [facility] Comment on above: Performed By: #### 2 4323-8 #### KALIN OSBORN ([id number]) [facility] ([facility]) [address] [place] [address] CO2 [Moles/Vol] 30 mmol/L Normal 21-32 [facility] Comment on above: Performed By: #### 2 4323-8 #### KALIN OSBORN ([id number]) [facility] ([facility]) [facility] [place] [address] Creatinine [Mass/Vol] 0.89 mg/dL Normal 0.50-1.30 [facility] Comment on above: Performed By: #### 2 4323-8 #### KALIN OSBORN ([id number]) [facility] ([facility]) [facility] [place] [address] Glomerular filtration rate/1.73 sq M.predicted 82 mL/min/1.73m*2 Normal >60 [facility] Comment on above: Result Comment: Calc ulations of estimated GFR are performed using the 2020 CKD-EPI Study Refit equation without the race variable for the IDMS-Traceable creatinine methods. https://jasn.asnjournals.org/content/early//ASN.03227 45040 Performed By: #### 2 4323-8 #### KALIN OSBORN ([id number]) [facility] ([facility]) [address] [place] [address] 00192 Glucose [Mass/Vol] 124 mg/dL High 74-99 [facility] Comment on above: Performed By: #### 2 4323-8 #### KALIN OSBORN ([id number]) [facility] ([facility]) [address] [place] [address] 05809 Potassium [Moles/Vol] 3.6 mmol/L Normal 3.5-5.3 [facility] Comment on above: Performed By: #### 2 4323-8 #### KALIN OSBORN ([id number]) [facility] ([facility]) [address] [place] [address] 28430 Sodium [Moles/Vol] 139 mmol/L Normal 136-145 [facility] Comment on above: Performed By: #### 2 4323-8 #### KALIN OSBORN ([id number]) [facility] ([facility]) [address] [place] [address] 30353 Urea nitrogen [Mass/Vol] 21 mg/dL Normal 6-23 [facility] Comment on above: Performed By: #### 2 4323-8 #### KALIN OSBORN ([id number]) [facility] ([facility]) [address] [place] [address] 02715 CBC panel Auto (Bld)on 05-11 Erythrocyte distribution width (RBC) [Ratio] 12.6 % 11.5 - 14.5 % [facility] Hematocrit (Bld) [Volume fraction] 32.9 % Low 41.0 - 52.0 % [facility] Hemoglobin (Bld) [Mass/Vol] 11.4 g/dL Low 13.5 - 17.5 g/dL [facility] Interpretation and review of laboratory results Abnormal [facility] MCH (RBC) [Entitic mass] 33.5 pg 26.0 - 34.[address] [facility] MCHC (RBC) [Mass/Vol] 34.7 g/dL 32.0 - 36.0 g/dL [facility] MCV (RBC) [Entitic vol] 97 fL 80 - [address] [facility] Nucleated RBC/100 WBC (Bld) [Ratio] 0.0 % [facility] Platelets (Bld) [#/Vol] 204 10*3/uL [facility] RBC (Bld) [#/Vol] 3.40 10*6/uL Low [facility] WBC (Bld) [#/Vol] 10.7 10*3/uL [facility] Erythrocyte distribution width (RBC) [Ratio] 12.6 % Normal 11.5-14.5 [facility] Comment on above: Performed By: #### 2 4323-8 #### KALIN OSBORN ([id number]) [facility] ([facility]) [address] [place] [address] 99514 Hematocrit (Bld) [Volume fraction] 32.9 % Low 41.0-52.0 [facility] Comment on above: Performed By: #### 2 4323-8 #### KALIN OSBORN ([id number]) [facility] ([facility]) [address] [place] [address] 69142 Hemoglobin (Bld) [Mass/Vol] 11.4 g/dL Low 13.5-17.5 [facility] Comment on above: Performed By: #### 2 4323-8 #### KALIN OSBORN ([id number]) [facility] ([facility]) [address] [place] [address] 91968 MCH (RBC) [Entitic mass] 33.5 pg Normal 26.0-34.0 [facility] Comment on above: Performed By: #### 2 4323-8 #### KALIN OSBORN ([id number]) [facility] ([facility]) [address] [place] [address] 40472 MCHC (RBC) [Mass/Vol] 34.7 g/dL Normal 32.0-36.0 [facility] Comment on above: Performed By: #### 2 4323-8 #### KALIN OSBORN ([id number]) [facility] ([facility]) [address] [place] [address] 91230 MCV (RBC) [Entitic vol] 97 fL Normal 80-100 [facility] Comment on above: Performed By: #### 2 4322-8 #### KALIN OSBORN ([id number]) [facility] ([facility]) [address] [place] [address] 65543 Nucleated RBC/100 WBC (Bld) [Ratio] 0.0 /100 WBCs Normal 0.0-0.0 [facility] Comment on above: Performed By: #### 2 432-8 #### KALIN OSBORN ([id number]) [facility] ([facility]) [address] [place], [place] [address] Platelets (Bld) [#/Vol] 204 x10*3/uL Normal 150-450 [facility] Comment on above: Performed By: #### 2 432-8 #### KALIN OSBORN ([id number]) [facility] ([facility]) [address] [place] [address] RBC (Bld) [#/Vol] 3.40 x10*6/uL Low 4.50-5.90 [facility] Comment on above: Performed By: #### 2 432-8 #### KALIN OSBORN ([id number]) [facility] ([facility]) [address] [place] [address] 54965 WBC (Bld) [#/Vol] 10.7 x10*3/uL Normal 4.4-11.3 [facility] Comment on above: Performed By: #### 2 432-8 #### KALIN OSBORN ([id number]) [facility] [facility] ([facility]) [address] [place] [address] Head WO contraston 2024 Redemonstration of [...] MD (PGY-3). This study was interpreted at [place], [place]. MACRO: None Signed by: Wanda Montalvo 05/11/2025 12:03 AM Dictation workstation: [id number] Interpreted By: Wanda Montalvo, and Spenser Jenkins STUDY: CT HEAD WO IV CONTRAST; 05/10/2025 11:27 pm INDICATION: Signs/Symptoms:Trauma , intracranial bleeding. Stability scan. COMPARISON: CT head without IV contrast 05/10/2025 3:03 p.m.. ACCESSION NUMBER(S): [id number] ORDERING CLINICIAN: CARRI GREER TECHNIQUE: Noncontrast axial [...] IV contrast 05/10/2025 3:03 p.m.. ACCESSION NUMBER(S): [id number] ORDERING CLINICIAN: CARRI GREER TECHNIQUE: Noncontrast axial [...] MD (PGY-3). This study was interpreted at [facility], [place], [place]. MACRO: None Signed by: Wanda Montalvo 05/11/2025 12:03 AM Dictation workstation: [id number] [facility] Work Phone: CT Head WO contrastOrdered B y: Wanda Montalvo on 05-11-[address] [facility] Work Phone: ECG 12 leadOrdered By: Lew juana [facility] on 05-11-2025 Atrial Rate [address] [facility] Work Phone: P Pantego [address] [facility] Work Phone: P Offset [address] [facility] Work Phone: P Onset [address] [facility] Work Phone: AK Interval [address] [facility] Work Phone: Q Onset [address] [facility] Work Phone: QRS Count [address] [facility] Work Phone: QRS Duration [address] [facility] Work Phone: QT Interval [address] [facility] Work Phone: QTC Calculation(Bazett) 431 [facility] Work Phone: QTC Fredericia 418 [facility] Work Phone: R Pantego -[address] [facility] Work Phone: T Pant[place] [address] [facility] Work Phone: T Offset [address] [facility] Work Phone: Ventricular Rate 72 BPM [facility] Work Phone: [facility] Work Phone: ECG 12 leadon 05-11-2025 Normal sinus rhythm Normal ECG When compared with ECG of 10-MAY-2025 13:54, No significant change was found See ED provider note for full interpretation and clinical correlation Confirmed by Yolanda Garcia ([id number]) on 05/11/2025 3:47:31 AM Yolanda Waite PA-C - 05/11/2025 Normal sinus rhythm Normal ECG When compared with ECG of 10-MAY-2025 13:54, No significant change was found See ED provider note for full interpretation and clinical correlation Confirmed by Yolanda Garcia ([id number]) on 05/11/2025 3:47:[address] [facility] Work Phone: ECG 12-LEADon 05-11-2025 ECG 12-LEAD Ventricular Rate 72 Atrial Rate 72 P-R Interval 190 QRS Duration 104 Q-T Interval 394 QTC Calculation(Bazett) 431 P Pantego 31 R Pantego -15 T Pantego 44 QRS Count 12 Q Onset 210 P Onset 115 P Offset 178 T Offset 407 QTC Fredericia 418 Diagnosis Normal sinus rhythm Normal ECG When compared with ECG of 10-MAY-2025 13:54, No significant change was found See ED provider note for full interpretation and clinical correlation Confirmed by Yolanda Garcia ([id number]) on 05/11/2025 3:47:31 AM Normal [facility] Magnesiumon 05-11-2025 Magnesium [Mass/Vol] 1.86 mg/dL 1.60 - 2.40 mg/dL [facility] Magnesium [Mass/Vol] 1.86 mg/dL Normal 1.60-2.40 [facility] Comment on above: Performed By: #### 2 4323-8 #### GAGNON IRENA ([id number]) [facility] ([facility]) [address] [place] [address] Magnesium [Mass/Vol]on 05-11 Interpretation and review of laboratory results Normal [facility] Natriuretic peptide B [Mass/ Vol]on 05-11-2025 Interpretation and review of laboratory results Normal [facility] Natriuretic peptide B (Bld) [Mass/Vol] 56 pg/mL 0 - 99 pg/mL [facility] <100 pg/mL - Heart failure unlikely [...] contact their local laboratory for further information. [facility] Natriuretic peptide B (Bld) [Mass/Vol] 56 pg/mL Normal 0-99 [facility] Comment on above: Order Comment: <100 pg/mL - Heart failure lylhueef623-576 pg/mL - Intermediate probability of acute heart [...] By: #### 2 4323-8 #### GAGNON IRENA ([id number]) [facility] ([facility]) [address] [place] [address] XR CHEST 1 VIEWon 05-11-2025 XR CHEST 1 VIEW STUDY: Chest Radiograph; 05/11/2025 1:13AM INDICATION: Evaluation for surgery trauma. COMPARISON: 09/23/2022 XR chest ACCESSION NUMBER(S): [id number] ORDERING CLINICIAN: SANTIAGO MENENDEZ TECHNIQUE: Frontal chest was obtained at 01:12 hours. FINDINGS: CARDIOMEDIASTINAL SILHOUETTE: Cardiomediastinal silhouette is normal in size and configuration. Mural calcifications through the aortic arch. LUNGS: No regions of consolidation. No regions of atelectasis. ABDOMEN: No remarkable upper abdominal findings. BONES: No acute osseous changes. IMPRESSION: No acute pleural or parenchymal disease.. Signed by Gracie Baltazar MD [facility] XR Chest Single viewon 05-11 No acute pleural or parenchymal disease.. Signed by Gracie Baltazar MD TELERADIOLOGY STUDY: Chest Radiograph; 05/11/2025 1:13AM INDICATION: Evaluation for surgery trauma. COMPARISON: 09/23/2022 XR chest ACCESSION NUMBER(S): [id number] ORDERING CLINICIAN: SANTIAGO MENENDEZ TECHNIQUE: Frontal chest was obtained at 01:12 hours. FINDINGS: CARDIOMEDIASTINAL SILHOUETTE: Cardiomediastinal silhouette is normal in size and configuration. Mural calcifications through the aortic arch. LUNGS: No regions of consolidation. No regions of atelectasis. ABDOMEN: No remarkable upper abdominal findings. BONES: No acute osseous changes. TELERADIOLOGY Gracie Baltazar MD - 05/11/2025 STUDY: Chest Radiograph; 05/11/2025 1:13AM INDICATION: Evaluation for surgery trauma. COMPARISON: 09/23/2022 XR chest ACCESSION NUMBER(S): [id number] ORDERING CLINICIAN: SANTIAGO MENENDEZ TECHNIQUE: Frontal chest was obtained at 01:12 hours. FINDINGS: CARDIOMEDIASTINAL SILHOUETTE: Cardiomediastinal silhouette is normal in size and configuration. Mural calcifications through the aortic arch. LUNGS: No regions of consolidation. No regions of atelectasis. ABDOMEN: No remarkable upper abdominal findings. BONES: No acute osseous changes. IMPRESSION: No acute pleural or parenchymal disease.. Signed by Gracie Baltazar MD [facility] Work Phone: Radiology Study observation (narrative) [facility] Work Phone: XR Chest Single viewOrdered By: Gracie Baltazar on 05-11-[address] [facility] Work Phone: XR PELVIS WITH INLET OUTLET JUDET VIEWSon 05-11-2025 XR PELVIS WITH INLET OUTLET JUDET VIEWS Interpreted By: Wanda Montalvo and Omar Mahmoud STUDY: XR PELVIS WITH INLET OUTLET JUDET VIEWS; ; 05/11/2025 4:18 am INDICATION: Signs/Symptoms:eval. COMPARISON: CT chest abdomen pelvis 05/10/2025. ACCESSION NUMBER(S): [id number] ORDERING CLINICIAN: LEONARDO BERGER FINDINGS: Five view [...] MD (PGY-3). This study was interpreted at [place], [place]. MACRO: None Signed by: Wanda Montalvo 05/11/2025 5:01 AM Dictation workstation: [id number] [facility] XR Pelvis 3 Viewson 05-11-20 25 Acute pubic rami, acetabular, and right sacral ala fractures are better appreciated on comparison CT chest abdomen pelvis. Please refer to separate report of dedicated CT for detail. Postsurgical and degenerative changes as noted above. I personally reviewed the images/study and I agree with the findings as stated by Gregory Dueñas MD (PGY-3). This study was interpreted at [place], [place]. MACRO: None Signed by: Wanda Montalvo 05/11/2025 5:01 AM Dictation workstation: [id number] Interpreted By: Wanda Montalvo and Omar Mahmoud STUDY: XR PELVIS WITH INLET OUTLET JUDET VIEWS; ; 05/11/2025 4:18 am INDICATION: Signs/Symptoms:eval. COMPARISON: CT chest abdomen pelvis 05/10/2025. ACCESSION NUMBER(S): [id number] ORDERING CLINICIAN: LEONARDO BERGER FINDINGS: Five view [...] contrast within the bladder. Vascular calcifications noted. [facility] MMODAL Wanda Montalvo MD - 05/11/2025 Interpreted By: Wanda Montalvo and Omar Mahmoud STUDY: XR PELVIS WITH INLET OUTLET JUDET VIEWS; ; 05/11/2025 4:18 am INDICATION: Signs/Symptoms:eval. COMPARISON: CT chest abdomen pelvis 05/10/2025. ACCESSION NUMBER(S): [id number] ORDERING CLINICIAN: LEONARDO BERGER FINDINGS: Five view [...] MD (PGY-3). This study was interpreted at [place], [place]. MACRO: None Signed by: Wanda Montalvo 05/11/2025 5:01 AM Dictation workstation: [id number] [facility] Work Phone: [facility] Work Phone: Radiology Study observation (narrative) [facility] Work Phone: Basic metabolic 2000 panelon 05-10-2025 Anion gap [Moles/Vol] 10 mmol/L 10 - 2 0 mmol/L [facility] Calcium [Mass/Vol] 8.7 mg/dL 8.6 - 10. 3 mg/dL [facility] Chloride [Moles/Vol] 106 mmol/L 98 - 10 7 mmol/L [facility] CO2 [Moles/Vol] 26 mmol/L 21 - 32 mmol/L [facility] Creatinine [Mass/Vol] 0.77 mg/dL 0.50 - 1.30 mg/dL [facility] GFR/1.73 sq M.predicted among non-blacks MDRD (S/P/Bld) [Vol rate/Area] 86 mL/min/{1.73_m2} - PINF [facility] Comment on above: Calculations of leonides mated GFR are performed using the 2020 CKD-EPI Study Refit equation without the race variable for the IDMS-Traceable creatinine methods. https://jasn.asnjournals.org/content/early/ASN.92141 16950 Glucose [Mass/Vol] 95 mg/dL 74 - 99 mg/dL [facility] Interpretation and review of laboratory results Abnormal [facility] Potassium [Moles/Vol] 3.9 mmol/L 3.5 - 5.3 mmol/L [facility] Sodium [Moles/Vol] 138 mmol/L 136 - 145 mmol/L [facility] Urea nitrogen [Mass/Vol] 26 mg/dL High 6 - 23 mg/dL [facility] Anion gap [Moles/Vol] 10 mmol/L Normal 10-20 [facility] Comment on above: Performed By: #### 2 4321-2 ####KALIN OSBORN ([id number])[facility] ([facility])[address] [place] [address] 10677 Calcium [Mass/Vol] 8.7 mg/dL Normal 8.6-10.3 [facility] Comment on above: Performed By: #### 2 4321-2 ####KALIN OSBORN ([id number])[facility] ([facility])[address] [place] [address] 97172 Chloride [Moles/Vol] 106 mmol/L Normal 98-107 [facility] Comment on above: Performed By: #### 2 4321-2 ####KALIN OSBORN ([id number])[facility] ([facility])[address] [place] [address] CO2 [Moles/Vol] 26 mmol/L Normal 21-32 [facility] Comment on above: Performed By: #### 2 4321-2 ####KALIN OSBORN ([id number])[facility] ([facility])[address] [place] [address] 08038 Creatinine [Mass/Vol] 0.77 mg/dL Normal 0.50-1.30 [facility] Comment on above: Performed By: #### 2 4321-2 ####KALIN OSBORN ([id number])[facility] ([facility])[address] [place] [address] 65487 Glomerular filtration rate/1.73 sq M.predicted 86 mL/min/1.73m*2 Normal >60 [facility] Comment on above: Result Comment: Calc ulations of estimated GFR are performed using the 2020 CKD-EPI Study Refit equation without the race variable for the IDMS-Traceable creatinine methods. https://jasn.asnjournals.org/content/early//ASN.23926 22109 Performed By: #### 2 4321-2 ####KALIN OSBORN ([id number])[facility] ([facility])[address] [place] [address] 09409 Glucose [Mass/Vol] 95 mg/dL Normal 74-99 [facility] Comment on above: Performed By: #### 2 4321-2 ####KALIN OSBORN ([id number])[facility] ([facility])[address] [place] [address] 81264 Potassium [Moles/Vol] 3.9 mmol/L Normal 3.5-5.3 [facility] Comment on above: Performed By: #### 2 4321-2 ####KALIN OSBORN ([id number])[facility] ([facility])[address] [place] [address] 44612 Sodium [Moles/Vol] 138 mmol/L Normal 136-145 [facility] Comment on above: Performed By: #### 2 4321-2 ####KALIN OSBORN ([id number])[facility] ([facility])[address] [place] [address] Urea nitrogen [Mass/Vol] 26 mg/dL High 6- [facility] Comment on above: Performed By: #### 2 4321-2 ####KALIN OSBORN ([id number])[facility] ([facility])[address] [place] [address] Blood type and Indirect anti body screen panel (Bld)on 05-10-2025 ABO group Nom (Bld) A [facility] Blood group antibody screen Ql Negative [facility] D Ag Ql (Bld) Positive [facility] ABO group Nom (Bld) A Normal [facility] Comment on above: Performed By: #### 3 4532-2 ####KALIN OSBORN ([id number])[facility] ([facility])[address] [place] [address] Blood group antibody screen Ql Negative Normal [facility] Comment on above: Performed By: #### 3 4532-2 ####KALIN OSBORN ([id number])[facility] ([facility])[address] [place] [address] D Ag Ql (Bld) Positive [facility] Comment on above: Performed By: #### 3 4532-2 ####KALIN OSBORN ([id number])[facility] ([facility])[address] [place] [address] CBC W Auto Differential pane l (Bld)on 05-10-2025 Basophils (Bld) [#/Vol] 0.04 10*3/uL [facility] Basophils/100 WBC (Bld) 0.4 % 0.0 - 2.0 % [facility] Eosinophils (Bld) [#/Vol] 0.11 10*3/uL [facility] Eosinophils/100 WBC (Bld) 1.0 % 0.0 - 6.0 % [facility] Erythrocyte distribution width (RBC) [Ratio] 12.5 % 11.5 - 14.5 % [facility] Hematocrit (Bld) [Volume fraction] 36.3 % Low 41.0 - 52.0 % [facility] Hemoglobin (Bld) [Mass/Vol] 12.3 g/dL Low 13.5 - 17.5 g/dL [facility] Immature granulocytes (Bld) [#/Vol] 0.15 10*3/uL [facility] Immature granulocytes/100 WBC (Bld) 1.4 % High 0.0 - 0.9 % [facility] Comment on above: Immature Granulocyte Count (IG) includes promyelocytes, myelocytes and metamyelocytes but does not include bands. Percent differential counts (%) should be interpreted in the context of the absolute cell counts (cells/UL). Interpretation and review of laboratory results Abnormal [facility] Lymphocytes (Bld) [#/Vol] 1.00 10*3/uL [facility] Lymphocytes/100 WBC (Bld) 9.4 % 13.0 - 44.0 % [facility] MCH (RBC) [Entitic mass] 33.6 pg 26.0 - 34.[address] [facility] MCHC (RBC) [Mass/Vol] 33.9 g/dL 32.0 - 36.0 g/dL [facility] MCV (RBC) [Entitic vol] 99 fL 80 - [address] [facility] Monocytes (Bld) [#/Vol] 1.04 10*3/uL High [facility] Monocytes/100 WBC (Bld) 9.7 % 2.0 - 10.0 % [facility] Neutrophils (Bld) [#/Vol] 8.34 10*3/uL High [facility] Comment on above: Percent differential counts (%) should be interpreted in the context of the absolute cell counts (cells/uL). Neutrophils/100 WBC (Bld) 78.1 % 40.0 - 80.0 % [facility] Nucleated RBC/100 WBC (Bld) [Ratio] 0.0 % [facility] Platelets (Bld) [#/Vol] 213 10*3/uL [facility] RBC (Bld) [#/Vol] 3.66 10*6/uL Low [facility] WBC (Bld) [#/Vol] 10.7 10*3/uL [facility] Basophils (Bld) [#/Vol] 0.04 x10*3/uL Normal 0.00-0.10 [facility] Comment on above: Performed By: #### 5 7021-8 #### KALIN OSBORN ([id number]) [facility] ([facility]) [address] [place] [address] 91437 Basophils/100 WBC (Bld) 0.4 % Normal 0.0-2.0 [facility] Comment on above: Performed By: #### 5 7021-8 #### KALIN OSBORN ([id number]) [facility] ([facility]) [address] [place] [address] 64357 Eosinophils (Bld) [#/Vol] 0.11 x10*3/uL Normal 0.00-0.40 [facility] Comment on above: Performed By: #### 5 7021-8 #### KALIN OSBORN ([id number]) [facility] ([facility]) [address] [place] [address] 32512 Eosinophils/100 WBC (Bld) 1.0 % Normal 0.0-6.0 [facility] Comment on above: Performed By: #### 5 7021-8 #### KALIN OSBORN ([id number]) [facility] ([facility]) [address] [place] [address] 25341 Erythrocyte distribution width (RBC) [Ratio] 12.5 % Normal 11.5-14.5 [facility] Comment on above: Performed By: #### 5 7021-8 #### KALIN OSBORN ([id number]) [facility] ([facility]) [address] [place] [address] 04260 Hematocrit (Bld) [Volume fraction] 36.3 % Low 41.0-52.0 [facility] Comment on above: Performed By: #### 5 7021-8 #### KALIN OSBORN ([id number]) [facility] ([facility]) [address] [place] [address] 73852 Hemoglobin (Bld) [Mass/Vol] 12.3 g/dL Low 13.5-17.5 [facility] Comment on above: Performed By: #### 5 7021-8 #### KALIN OSBORN ([id number]) [facility] ([facility]) [address] [place] [address] 24756 Immature granulocytes (Bld) [#/Vol] 0.15 x10*3/uL Normal 0.00-0.50 [facility] Comment on above: Performed By: #### 5 7021-8 #### KALIN OSBORN ([id number]) [facility] ([facility]) [address] [place] [address] 15081 Immature granulocytes/100 WBC (Bld) 1.4 % High 0.0-0.9 [facility] Comment on above: Result Comment: Steph ture Granulocyte Count (IG) includes promyelocytes, myelocytes and metamyelocytes but does not include bands. Percent differential counts (%) should be interpreted in the context of the absolute cell counts (cells/UL). Performed By: #### 5 7021-8 #### KALIN OSBORN ([id number]) [facility] ([facility]) [address] [place] [address] 40562 Lymphocytes (Bld) [#/Vol] 1.00 x10*3/uL Normal 0.80-3.00 [facility] Comment on above: Performed By: #### 5 7021-8 #### KALIN OSBORN ([id number]) [facility] ([facility]) [address] [place] [address] 82197 Lymphocytes/100 WBC (Bld) 9.4 % Normal 13.0-44.0 [facility] Comment on above: Performed By: #### 5 7021-8 #### KALIN OSBORN ([id number]) [facility] ([facility]) [address] [place] [address] 62013 MCH (RBC) [Entitic mass] 33.6 pg Normal 26.0-34.0 [facility] Comment on above: Performed By: #### 5 7021-8 #### KALIN OSBORN ([id number]) [facility] ([facility]) [address] [place] [address] 63559 MCHC (RBC) [Mass/Vol] 33.9 g/dL Normal 32.0-36.0 [facility] Comment on above: Performed By: #### 5 7021-8 #### KALIN OSBORN ([id number]) [facility] ([facility]) [address] [place] [address] 16447 MCV (RBC) [Entitic vol] 99 fL Normal 80-100 [facility] Comment on above: Performed By: #### 5 7021-8 #### KALIN OSBORN ([id number]) [facility] ([facility]) [address] [place] [address] 00609 Monocytes (Bld) [#/Vol] 1.04 x10*3/uL High 0.05-0.80 [facility] Comment on above: Performed By: #### 5 7021-8 #### KALIN OSBORN ([id number]) [facility] ([facility]) [address] [place] [address] 81751 Monocytes/100 WBC (Bld) 9.7 % Normal 2.0-10.0 [facility] Comment on above: Performed By: #### 5 7021-8 #### KALIN OSBORN ([id number]) [facility] ([facility]) [address] [place] [address] 18197 Neutrophils (Bld) [#/Vol] 8.34 x10*3/uL High 1.60-5.50 [facility] Comment on above: Result Comment: Perc ent differential counts (%) should be interpreted in the context of the absolute cell counts (cells/uL). Performed By: #### 5 7021-8 #### KALIN OSBORN ([id number]) [facility] ([facility]) [address] [place] [address] 74508 Neutrophils/100 WBC (Bld) 78.1 % Normal 40.0-80.0 [facility] Comment on above: Performed By: #### 5 7021-8 #### KALIN OSBORN ([id number]) [facility] ([facility]) [address] [place] [address] 99490 Nucleated RBC/100 WBC (Bld) [Ratio] 0.0 /100 WBCs Normal 0.0-0.0 [facility] Comment on above: Performed By: #### 5 7021-8 #### KALIN OSBORN ([id number]) [facility] ([facility]) [address] [place] [address] 50266 Platelets (Bld) [#/Vol] 213 x10*3/uL Normal 150-450 [facility] Comment on above: Performed By: #### 5 7021-8 #### KALIN OSBORN ([id number]) [facility] ([facility]) [address] [place] [address] 17515 RBC (Bld) [#/Vol] 3.66 x10*6/uL Low 4.50-5.90 [facility] Comment on above: Performed By: #### 5 7021-8 #### KALIN OSBORN ([id number]) [facility] ([facility]) [address] [place] [address] 23622 WBC (Bld) [#/Vol] 10.7 x10*3/uL Normal 4.4-11.3 [facility] Comment on above: Performed By: #### 5 7021-8 #### KALIN OSBORN ([id number]) [facility] ([facility]) [address] [place], [place] [address] CT 3D RECONSTRUCTIONon 05-10 CT 3D RECONSTRUCTION Interpreted By: Michelle Zambrano, STUDY: CT HEAD WO IV CONTRAST; CT FACIAL BONES WO IV CONTRAST; CT 3D RECONSTRUCTION; CT CERVICAL SPINE WO IV CONTRAST; 05/10/2025 3:01 pm; 05/10/2025 3:08 pm INDICATION: Signs/Symptoms:fall. COMPARISON: Head CT 11/15/2023 ACCESSION NUMBER(S): [id number]; [id number]; [id number]; [id number] ORDERING CLINICIAN: SANTIAGO MENENDEZ TECHNIQUE: Axial noncontrast [...] care surgeons. J Trauma Acute Care Surg. 2014;76:067d263. FACIAL BONES: No acute facial bone fracture. [...] Michelle Zambrano 05/10/2025 4:33 PM Dictation workstation: [id number] [facility] CT CERVICAL SPINE WO IV CONT Jessica 05-10-2025 CT CERVICAL SPINE WO IV CONTRAST Interpreted By: Michelle Zambrano, STUDY: CT HEAD WO IV CONTRAST; CT FACIAL BONES WO IV CONTRAST; CT 3D RECONSTRUCTION; CT CERVICAL SPINE WO IV CONTRAST; 05/10/2025 3:01 pm; 05/10/2025 3:08 pm INDICATION: Signs/Symptoms:fall. COMPARISON: Head CT 11/15/2023 ACCESSION NUMBER(S): [id number]; [id number]; [id number]; [id number] ORDERING CLINICIAN: SANTIAGO MENENDEZ TECHNIQUE: Axial noncontrast [...] care surgeons. J Trauma Acute Care Surg. 2014;76:054h662. FACIAL BONES: No acute facial bone fracture. [...] Michelle Zambrano 05/10/2025 4:33 PM Dictation workstation: [id number] [facility] CT CHEST ABDOMEN PELVIS W IV CONTRASTon 05-10-2025 CT CHEST ABDOMEN PELVIS W IV CONTRAST Interpreted By: Michelle Zambrano, STUDY: CT CHEST ABDOMEN PELVIS W IV CONTRAST; 05/10/2025 3:05 pm INDICATION: Signs/Symptoms:fall. COMPARISON: None. ACCESSION NUMBER(S): [id number] ORDERING CLINICIAN: SANTIAGO MENENDEZ TECHNIQUE: Axial CT [...] Michelle Zambrano 05/10/2025 4:52 PM Dictation workstation: [id number] [facility] CT Chest and Abdomen and Pel vis [...] Michelle Zambrano 05/10/2025 4:52 PM Dictation workstation: [id number] [facility] Interpreted By: Michelle Zambrano, STUDY: CT CHEST ABDOMEN PELVIS W IV CONTRAST; 05/10/2025 3:05 pm INDICATION: Signs/Symptoms:fall. COMPARISON: None. ACCESSION NUMBER(S): [id number] ORDERING CLINICIAN: SANTIAGO MENENDEZ TECHNIQUE: Axial CT [...] pm INDICATION: Signs/Symptoms:fall. COMPARISON: None. ACCESSION NUMBER(S): [id number] ORDERING CLINICIAN: SANTIAGO MENENDEZ TECHNIQUE: Axial CT [...] Michelle Zambrano 05/10/2025 4:52 PM Dictation workstation: [id number] [facility] Work Phone: [facility] Work Phone: Radiology Study observation (narrative) [facility] Work Phone: CT FACIAL BONES WO IV SUKHIA Delaney 05-10-2025 CT FACIAL BONES WO IV CONTRAST Interpreted By: Michelle Zambrano, STUDY: CT HEAD WO IV CONTRAST; CT FACIAL BONES WO IV CONTRAST; CT 3D RECONSTRUCTION; CT CERVICAL SPINE WO IV CONTRAST; 05/10/2025 3:01 pm; 05/10/2025 3:08 pm INDICATION: Signs/Symptoms:fall. COMPARISON: Head CT 11/15/2023 ACCESSION NUMBER(S): [id number]; [id number]; [id number]; [id number] ORDERING CLINICIAN: SANTIAGO MENENDEZ TECHNIQUE: Axial noncontrast [...] care surgeons. J Trauma Acute Care Surg. 2014;76:264m951. FACIAL BONES: No acute facial bone fracture. [...] Michelle Zambrano 05/10/2025 4:33 PM Dictation workstation: [id number] [facility] CT HEAD WO IV CONTRASTon CT HEAD WO IV CONTRAST Interpreted By: Wanda Montalvo and Omar Mahmoud STUDY: CT HEAD WO IV CONTRAST; 05/10/2025 11:27 pm INDICATION: Signs/Symptoms:Trauma , intracranial bleeding. Stability scan. COMPARISON: CT head without IV contrast 05/10/2025 3:03 p.m.. ACCESSION NUMBER(S): [id number] ORDERING CLINICIAN: CARRI GREER TECHNIQUE: Noncontrast axial [...] MD (PGY-3). This study was interpreted at [place], [place]. MACRO: None Signed by: Wanda Montalvo 05/11/2025 12:03 AM Dictation workstation: [id number] Normal [facility] CT HEAD WO IV CONTRAST Interpreted By: Michelle Zambrano, STUDY: CT HEAD WO IV CONTRAST; CT FACIAL BONES WO IV CONTRAST; CT 3D RECONSTRUCTION; CT CERVICAL SPINE WO IV CONTRAST; 05/10/2025 3:01 pm; 05/10/2025 3:08 pm INDICATION: Signs/Symptoms:fall. COMPARISON: Head CT 11/15/2023 ACCESSION NUMBER(S): [id number]; [id number]; [id number]; [id number] ORDERING CLINICIAN: SANTIAGO MENENDEZ TECHNIQUE: Axial noncontrast [...] care surgeons. J Trauma Acute Care Surg. 2014;76:633o565. FACIAL BONES: No acute facial bone fracture. [...] Michelle Zambrano 05/10/2025 4:33 PM Dictation workstation: [id number] [facility] CT Head WO contraston 2024 Radiology Study observation (narrative) [facility] Work Phone: CT LUMBAR SPINE RETROSPECTIV E RECONSTRUCTION PROTOCOLon 05-10-2025 CT LUMBAR SPINE RETROSPECTIVE RECONSTRUCTION PROTOCOL STUDY: CT Thoracic Spine, and Lumbar Spine without IV Contrast; 05/10/2025 at 10:38 PM. INDICATION: Trauma. COMPARISON: CT CAP 05/10/2025. ACCESSION NUMBER(S): [id number], [id number] ORDERING CLINICIAN: ELIAN ROTHMAN TECHNIQUE: CT of [...] consider MRI. Signed by Joey Paz MD [facility] CT THORACIC SPINE RETROSPECT DERRELL RECONSTRUCTION PROTOCOLon 05-10-2025 CT THORACIC SPINE RETROSPECTIVE RECONSTRUCTION PROTOCOL STUDY: CT Thoracic Spine, and Lumbar Spine without IV Contrast; 05/10/2025 at 10:38 PM. INDICATION: Trauma. COMPARISON: CT CAP 05/10/2025. ACCESSION NUMBER(S): [id number], [id number] ORDERING CLINICIAN: ELIAN ROTHMAN TECHNIQUE: CT of [...] consider MRI. Signed by Joey Paz MD [facility] Coagulation surface inducedo n 05-10-2025 aPTT Coag (PPP) [Time] 29 s Normal 26-36 [facility] Comment on above: Order Comment: The A PTT is no longer used for monitoring Unfractionated Heparin Therapy. For monitoring Heparin Therapy, use the Heparin Assay. Performed By: #### 1 4979-9 #### KALIN OSBORN ([id number]) [facility] ([facility]) [address] [place] [address] Coagulation tissue factor in ducedon 05-10-2025 PT Coag (PPP) [Time] 11.8 s Normal 9.8-12.4 [facility] Comment on above: Performed By: #### 5 902-2 #### KALIN OSBORN ([id number]) [facility] ([facility]) [address] [place], [place] [id number] ECG 12-LEADon 05-10-2025 ECG 12-LEAD Ventricular Rate 80 Atrial Rate 80 P-R Interval 176 QRS Duration 98 Q-T Interval 376 QTC Calculation(Bazett) 433 P Pantego 56 R Pantego -21 T Pantego 55 QRS Count 14 Q Onset 210 P Onset 122 P Offset 180 T Offset 398 QTC Fredericia 414 Diagnosis Normal sinus rhythm Normal ECG When compared with ECG of 07-DEC-2023 09:54, Premature atrial complexes are no longer Present See ED provider note for full interpretation and clinical correlation Confirmed by Brandee Hawkins ([id number]) on 05/11/2025 1:16:43 PM Normal [facility] Laceration Repairon 05-10-20 Brandee Hawkins PA-C 05/10/2025 [...] No treatment, delayed treatment, observation and referral Romance protocol: Procedure explained and questions answered to [...] Procedure completion: Tolerated well, no immediate complications [facility] Work Phone: [facility] Work Phone: No Panel Informationon 05-10 [...] Michelle Zambrano 05/10/2025 4:33 PM Dictation workstation: [id number] [facility] Interpreted By: Michelle Zambrano, STUDY: CT HEAD WO IV CONTRAST; CT FACIAL BONES WO IV CONTRAST; CT 3D RECONSTRUCTION; CT CERVICAL SPINE WO IV CONTRAST; 05/10/2025 3:01 pm; 05/10/2025 3:08 pm INDICATION: Signs/Symptoms:fall. COMPARISON: Head CT 11/15/2023 ACCESSION NUMBER(S): [id number]; [id number]; [id number]; [id number] ORDERING CLINICIAN: SANTIAGO MENENDEZ TECHNIQUE: Axial noncontrast [...] care surgeons. J Trauma Acute Care Surg. 2014;76:535p371. FACIAL BONES: No acute facial bone fracture. [...] are within normal limits. OTHER FINDINGS: None. [facility] MM[facility]AL Michelle Zambrano MD - 05/10/2025 Interpreted By: Michelle Zambrano, STUDY: CT HEAD WO IV CONTRAST; CT FACIAL BONES WO IV CONTRAST; CT 3D RECONSTRUCTION; CT CERVICAL SPINE WO IV CONTRAST; 05/10/2025 3:01 pm; 05/10/2025 3:08 pm INDICATION: Signs/Symptoms:fall. COMPARISON: Head CT 11/15/2023 ACCESSION NUMBER(S): [id number]; [id number]; [id number]; [id number] ORDERING CLINICIAN: SANTIAGO MENENDEZ TECHNIQUE: Axial noncontrast [...] care surgeons. J Trauma Acute Care Surg. 2014;76:341k092. FACIAL BONES: No acute facial bone fracture. [...] Michelle Zambrano 05/10/2025 4:33 PM Dictation workstation: [id number] [facility] Work Phone: Interpretation and review of laboratory results Normal [facility] Radiology Study observation (narrative) [facility] Work Phone: Radiology Study observation (narrative) [facility] Work Phone: No Panel InformationOrdered By: Michelle Zambrano on 05-10-[address] [facility] Work Phone: PT Coag (PPP) [Time]on 05-10 INR Coag (PPP) [Relative time] 1.1 {INR} 0.9 - 1.[address] [facility] INR Coag (PPP) [Relative time] 1.1 Normal 0.9-1.1 [facility] Comment on above: Performed By: #### 5 902-2 #### GAGNON IRENA ([id number]) [facility] ([facility]) [address] [place] [address] Protime-INRon 05-10-2025 PT Coag (PPP) [Time] 11.8 s [facility] Tropinin I.cardiac panel Hig h sensitivity methodon 05-10-2025 Interpretation and review of laboratory results Normal [facility] Less than 99th percentile of normal [...] performed using a different testing methodology at [facility] than at other [facility]. Direct result comparisons should only be made within the same method. [facility] Interpretation and review of laboratory results Normal [facility] Less than 99th percentile of normal [...] performed using a different testing methodology at [facility] than at [facility]. Direct result comparisons should only be made within the same method. [facility] Troponin I, High Sensitivity , Initialon 05-10-2025 Tropinin I.cardiac panel High sensitivity method 7 ng/L 0 - 20 ng/L [facility] Troponin I.cardiac panelon 0 05-10-2025 Tropinin I.cardiac panel High sensitivity method 6 ng/L Normal 0-20 [facility] Comment on above: Order Comment: Less than [...] is performed using a differenttesting methodology at [facility] than at [facility]. Direct result comparisons should onlybe made within the same method. Performed By: #### 8 9577-1 ####GAGNON IRENA ([id number])[facility] ([facility])[address] [place] [address] Tropinin I.cardiac panel High sensitivity method 7 ng/L Normal 0-20 [facility] Comment on above: Order Comment: Less than [...] is performed using a differenttesting methodology at [facility] than at [facility]. Direct result comparisons should onlybe made within the same method. Performed By: #### 8 9577-1 ####GAGNON IRENA ([id number])[facility] ([facility])[address] [place] [address] Troponin, High Sensitivity, 1 Houron 05-10-2025 Tropinin I.cardiac panel High sensitivity method 6 ng/L 0 - 20 ng/L [facility] XR HAND RIGHT 3+ VIEWSon XR HAND RIGHT 3+ VIEWS Interpreted By: Michelle Zambrano, STUDY: XR HAND RIGHT 3+ VIEWS; ; 05/10/2025 3:06 pm INDICATION: Signs/Symptoms:injury . COMPARISON: None. ACCESSION NUMBER(S): [id number] ORDERING CLINICIAN: SANTIAGO MENENDEZ FINDINGS: Three views right hand: No acute fracture or malalignment. Severe degenerative changes of the 1st carpometacarpal joint and moderate degenerative changes of the 2nd metacarpophalangeal joint. No radiopaque foreign body or soft tissue gas. IMPRESSION: No acute osseous abnormality. MACRO: None Signed by: Michelle Zambrano 05/10/2025 4:34 PM Dictation workstation: [id number] Normal [facility] XR Hand - right 3 Viewson No acute osseous abnormality. MACRO: None Signed by: Michelle Zambrano 05/10/2025 4:34 PM Dictation workstation: [id number] [facility] Interpreted By: Michelle Zambrano, STUDY: XR HAND RIGHT 3+ VIEWS; ; 05/10/2025 3:06 pm INDICATION: Signs/Symptoms:injury . COMPARISON: None. ACCESSION NUMBER(S): [id number] ORDERING CLINICIAN: SANTIAGO MENENDEZ FINDINGS: Three views [...] INDICATION: Signs/Symptoms:injury . COMPARISON: None. ACCESSION NUMBER(S): [id number] ORDERING CLINICIAN: SANTIAGO MENENDEZ FINDINGS: Three views right hand: No acute fracture or malalignment. Severe degenerative changes of the 1st carpometacarpal joint and moderate degenerative changes of the 2nd metacarpophalangeal joint. No radiopaque foreign body or soft tissue gas. IMPRESSION: No acute osseous abnormality. MACRO: None Signed by: Michelle Zambrano 05/10/2025 4:34 PM Dictation workstation: [id number] [facility] Work Phone: [facility] Work Phone: Radiology Study observation (narrative) [facility] Work Phone: aPTRodolfo 05-10-2025 aPTT Coag (PPP) [Time] 29 [facility] a[facility] Coag (PPP) [Time]on The APTT is no longe r used for monitoring Unfractionated Heparin Therapy. For monitoring Heparin Therapy, use the Heparin Assay. [facility] XR CERVICAL SPINE 2-3 VIEWSo n 05-08-2025 XR CERVICAL SPINE 2-3 VIEWS Interpreted By: Clement Estevez, STUDY: XR CERVICAL SPINE 2-3 VIEWS; ; 05/08/2025 10:25 am INDICATION: Signs/Symptoms:neck pain. ,M54.2 Cervicalgia COMPARISON: None. ACCESSION NUMBER(S): [id number] ORDERING CLINICIAN: DON BARRERA FINDINGS: There is [...] Clement Estevez 05/09/2025 8:28 AM Dictation workstation: [id number] [facility] CBC (INCLUDES DIFF/PLT)on Basophils (Bld) [#/Vol] 0.05 10*3/uL Normal 0-200 [facility] Comment on above: Performed By: #### 6 399, 37568 #### [facility] [place] [address] Deputy Director Of Finance: Osman Rojo MD Basophils/100 WBC (Bld) 0.6 % Normal [facility] Comment on above: Performed By: #### 6 399, 39551 #### [facility] [place] [address] Deputy Director Of Finance: Osman Rojo MD Eosinophils (Bld) [#/Vol] 0.116 10*3/uL Normal 15-500 [facility] Comment on above: Performed By: #### 6 399, 41856 #### [facility] [place] [address] Deputy Director Of Finance: Osman Rojo MD Eosinophils/100 WBC (Bld) 1.4 % Normal [facility] Comment on above: Performed By: #### 6 399, 53801 #### [facility] [place] [address] Deputy Director Of Finance: Osman Rojo MD Erythrocyte distribution width (RBC) [Ratio] 12.3 % Normal 11.0-15.0 [facility] Comment on above: Performed By: #### 6 399, 34559 #### [facility] [place] [address] Deputy Director Of Finance: Osman Rojo MD Hematocrit (Bld) [Volume fraction] 40.6 % Normal 38.5-50.0 [facility] Comment on above: Performed By: #### 6 399, 78284 #### [facility] [place] [address] Deputy Director Of Finance: Osman Rojo MD Hemoglobin (Bld) [Mass/Vol] 13.0 g/dL Low 13.2-17.1 [facility] Comment on above: Performed By: #### 6 399, 21162 #### [facility] [place] [address] Deputy Director Of Finance: Osman Rojo MD Lymphocytes (Bld) [#/Vol] 1.204 10*3/uL Normal 850-3900 [facility] Comment on above: Performed By: #### 6 399, 76687 #### [facility] [place] [address] Deputy Director Of Finance: Osman Rojo MD Lymphocytes/100 WBC (Bld) 14.5 % Normal [facility] Comment on above: Performed By: #### 6 399, 55068 #### [facility] [place] [address] Deputy Director Of Finance: Osman Rojo MD MCH (RBC) [Entitic mass] 33.5 pg High 27.0-33.0 [facility] Comment on above: Performed By: #### 6 399, 10921 #### [facility] [place] [address] Deputy Director Of Finance: Osman Rojo MD MCHC (RBC) [Mass/Vol] 32.0 [...] clinical condition. Performed By: #### 6 399, 82152 #### [facility] of [place] [address] Deputy Director Of Finance: Osman Rojo MD MCV (RBC) [Entitic vol] 104.6 fL High 80.0-100.0 [facility] Comment on above: Performed By: #### 6 399, 62339 #### [facility] of [place] [address] Deputy Director Of Finance: Osman Rojo MD Monocytes (Bld) [#/Vol] 0.498 10*3/uL Normal 200-950 [facility] Comment on above: Performed By: #### 6 399, 50867 #### [facility] of [place] [address] Deputy Director Of Finance: Osman Rojo MD Monocytes/100 WBC (Bld) 6.0 % Normal [facility] Comment on above: Performed By: #### 6 399, 38275 #### [facility] of [place] [address] Deputy Director Of Finance: Osman Rojo MD Neutrophils (Bld) [#/Vol] 6.433 10*3/uL Normal 6127-1439 [facility] Comment on above: Performed By: #### 6 399, 28814 #### [facility] of [place] [address] Deputy Director Of Finance: Osman Rojo MD Neutrophils/100 WBC (Bld) 77.5 % Normal [facility] Comment on above: Performed By: #### 6 399, 64537 #### [facility] of [place] [address] Deputy Director Of Finance: Osman Rojo MD Platelet mean volume (Bld) [Entitic vol] 9.4 fL Normal 7.5-12.5 [facility] Comment on above: Performed By: #### 6 399, 17711 #### [facility] [place] [address] Deputy Director Of Finance: Osman Rojo MD Platelets (Bld) [#/Vol] 263 10*3/uL Normal 140-400 [facility] Comment on above: Performed By: #### 6 399, 32678 #### [facility] [place] [address] Deputy Director Of Finance: Osman Rojo MD RBC (Bld) [#/Vol] 3.88 10*6/uL Low 4.20-5.80 [facility] Comment on above: Performed By: #### 6 399, 16734 #### [facility] [place] [address] Deputy Director Of Finance: Osman Rojo MD WBC (Bld) [#/Vol] 8.3 10*3/uL Normal 3.8-10.8 [facility] Comment on above: Performed By: #### 6 399, 34104 #### [facility] of [place] [address] Deputy Director Of Finance: Osman Rojo MD COMPREHENSIVE METABOLIC PANE L W/ANION GAPon 04-30-2025 Albumin [Mass/Vol] 4.5 g/dL Normal 3.6-5.1 [facility] Comment on above: Performed By: #### 6 399, 28539 #### [facility] [place] [address] Deputy Director Of Finance: Osman Rojo MD ALP [Catalytic activity/Vol] 72 U/L Normal 35-144 [facility] Comment on above: Performed By: #### 6 399, 51124 #### [facility] [place] [address] Deputy Director Of Finance: Osman Rojo MD ALT [Catalytic activity/Vol] 13 U/L Normal 9-46 [facility] Comment on above: Performed By: #### 6 399, 35752 #### [facility] [place] [address] Deputy Director Of Finance: Osman Rojo MD AST [Catalytic activity/Vol] 15 U/L Normal 10-35 [facility] Comment on above: Performed By: #### 6 399, 30850 #### [facility] of [address], [address] [place] [address] Deputy Director Of Finance: Osman Rojo MD Bilirubin [Mass/Vol] 0.5 mg/dL Normal 0.2-1.2 [facility] Comment on above: Performed By: #### 6 399, 80469 #### [facility] [place] [address] Deputy Director Of Finance: Osman Rojo MD Calcium [Mass/Vol] 8.9 mg/dL Normal 8.6-10.3 [facility] Comment on above: Performed By: #### 6 399, 78226 #### [facility] [place] [address] Deputy Director Of Finance: Osman Rojo MD Chloride [Moles/Vol] 103 mmol/L Normal 98-110 [facility] Comment on above: Performed By: #### 6 399, 61890 #### [facility] [place] [address] Deputy Director Of Finance: Osman Rojo MD CO2 [Moles/Vol] 26 mmol/L Normal 20-32 [facility] Comment on above: Performed By: #### 6 399, 55644 #### [facility] [place] [address] Deputy Director Of Finance: Osman Rojo MD Creatinine [Mass/Vol] 0.75 mg/dL Normal 0.70-1.[address] [facility] Comment on above: Performed By: #### 6 399, 17707 #### [facility] [place] [address] Deputy Director Of Finance: Osman Rjoo MD ELECTROLYTE BALANCE 10 mmol/L (calc) Normal 7-17 [facility] Comment on above: Performed By: #### 6 399, 41292 #### [facility] of [place] [address] Deputy Director Of Finance: Osman Rojo MD GFR/1.73 sq M.predicted among non-blacks MDRD (S/P/Bld) [Vol rate/Area] 86 mL/min/{1.73_m2} Normal > OR = 60 [facility] Comment on above: Performed By: #### 6 399, 39143 #### [facility] of [place] [address] Deputy Director Of Finance: Osman Rojo MD Glucose [Mass/Vol] 86 mg/dL Normal 65-99 [facility] Comment on above: Result Comment: Fasting reference interval Performed By: #### 6 399, 97983 #### [facility] [place] [address] Deputy Director Of Finance: Osman Rojo MD Potassium [Moles/Vol] 4.2 mmol/L Normal 3.5-5.[address] [facility] Comment on above: Performed By: #### 6 399, 86122 #### [facility] [place] [address] Deputy Director Of Finance: Osman Rojo MD Protein [Mass/Vol] 6.2 g/dL Normal 6.1-8.1 [facility] Comment on above: Performed By: #### 6 399, 56664 #### [facility] [place] [address] Deputy Director Of Finance: Osman Rojo MD Sodium [Moles/Vol] 139 mmol/L Normal 135-146 [facility] Comment on above: Performed By: #### 6 399, 52273 #### [facility] [place] [address] Deputy Director Of Finance: Osman Rjoo MD Urea nitrogen [Mass/Vol] 22 mg/dL Normal 7-25 [facility] Comment on above: Performed By: #### 6 399, 97259 #### [facility] of [place] [address] Deputy Director Of Finance: Osman Rojo MD XR RIBS 2 VIEWS [...] Sunday.. ,R07.81 Pleurodynia COMPARISON: None. ACCESSION NUMBER(S): [id number] ORDERING CLINICIAN: LINCOLN KING FINDINGS: Cardiac silhouette within normal limits. Mild bibasilar fibrotic stranding. No focal infiltrate, pleural effusion or pneumothorax. Nondisplaced fracture of the anterior left 6th rib. IMPRESSION: Nondisplaced fracture anterior left 6th rib. No pneumothorax. MACRO: None Signed by: Howard Elias 04/10/2025 1:50 PM Dictation workstation: [id number] [facility] XR Ribs Views and Chest PAon 04-10-2025 Nondisplaced fractur e anterior left 6th rib. No pneumothorax. MACRO: None Signed by: Howard Elias 04/10/2025 1:50 PM Dictation workstation: [id number] MMODAL Interpreted By: Howard Elias, STUDY: XR RIBS 2 VIEWS LEFT WITH CHEST PA OR AP; ; 04/10/2025 12:23 pm INDICATION: Signs/Symptoms:L lower anterior/lateral ribcage pain - reports sxs started after a chiropractic adjustment (done while he was laying on his abdomen) on Sunday.. ,R07.81 Pleurodynia COMPARISON: None. ACCESSION NUMBER(S): [id number] ORDERING CLINICIAN: LINCOLN KING FINDINGS: Cardiac silhouette [...] Sunday.. ,R07.81 Pleurodynia COMPARISON: None. ACCESSION NUMBER(S): [id number] ORDERING CLINICIAN: LINCOLN KING FINDINGS: Cardiac silhouette within normal limits. Mild bibasilar fibrotic stranding. No focal infiltrate, pleural effusion or pneumothorax. Nondisplaced fracture of the anterior left 6th rib. IMPRESSION: Nondisplaced fracture anterior left 6th rib. No pneumothorax. MACRO: None Signed by: Howard Elias 04/10/2025 1:50 PM Dictation workstation: [id number] [facility] Work Phone: Radiology Study observation (narrative) [facility] Work Phone: XR Ribs Views and Chest PAOr dered By: Howard Elias on 04-10-[address] [facility] Work Phone: CBC (INCLUDES DIFF/PLT)on Basophils (Bld) [#/Vol] 0.05 10*3/uL Normal 0-200 [facility] Comment on above: Performed By: #### 9 6178, 3420 #### [facility] [place] [address] Deputy Director Of Finance: Osman Rojo MD Basophils/100 WBC (Bld) 0.6 % Normal [facility] Comment on above: Performed By: #### 9 8136, 3646 #### [facility] [place] [address] Deputy Director Of Finance: Osman Rojo MD Eosinophils (Bld) [#/Vol] 0.116 10*3/uL Normal 15-500 [facility] Comment on above: Performed By: #### 9 6471, 9349 #### [facility] [place] [address] Deputy Director Of Finance: Osman Rojo MD Eosinophils/100 WBC (Bld) 1.4 % Normal [facility] Comment on above: Performed By: #### 9 2665, 6399 #### [facility] of [address], [address] [place] [address] Deputy Director Of Finance: Osman Rojo MD Erythrocyte distribution width (RBC) [Ratio] 12.9 % Normal 11.0-15.0 [facility] Comment on above: Performed By: #### 9 5665, 6399 #### [facility] of [address], [address] [place] [address] Deputy Director Of Finance: Osman Rojo MD Hematocrit (Bld) [Volume fraction] 38.2 % Low 38.5-50.0 [facility] Comment on above: Performed By: #### 9 2664, 6399 #### [facility] of [address], [address] [place] [address] Deputy Director Of Finance: Osman Rojo MD Hemoglobin (Bld) [Mass/Vol] 12.8 g/dL Low 13.2-17.1 [facility] Comment on above: Performed By: #### 9 2664, 6399 #### [facility] of [address], [address] [place] [address] Deputy Director Of Finance: Osman Rojo MD Lymphocytes (Bld) [#/Vol] 0.764 10*3/uL Low 850-3900 [facility] Comment on above: Performed By: #### 9 744, 6399 #### [facility] of [address], [address] [place] [address] Deputy Director Of Finance: Osman Rojo MD Lymphocytes/100 WBC (Bld) 9.2 % Normal [facility] Comment on above: Performed By: #### 9 200, 6399 #### [facility] of [address], [address] [place] [address] Deputy Director Of Finance: Osman Rojo MD MCH (RBC) [Entitic mass] 34.0 pg High 27.0-33.0 [facility] Comment on above: Performed By: #### 9 296, 6399 #### [facility] of [address], [address] [place] [address] Deputy Director Of Finance: Osman Rojo MD MCHC (RBC) [Mass/Vol] 33.5 [...] patient's clinical condition. Performed By: #### 9 2664, 6399 #### [facility] [place] [address] Deputy Director Of Finance: Osman Rojo MD MCV (RBC) [Entitic vol] 101.3 fL High 80.0-100.0 [facility] Comment on above: Performed By: #### 9 2664, 6399 #### [facility] [place] [address] Deputy Director Of Finance: Osman Rojo MD Monocytes (Bld) [#/Vol] 0.714 10*3/uL Normal 200-950 [facility] Comment on above: Performed By: #### 9 2664, 6399 #### [facility] [place] [address] Deputy Director Of Finance: Osman Rojo MD Monocytes/100 WBC (Bld) 8.6 % Normal [facility] Comment on above: Performed By: #### 9 2664, 6399 #### [facility] [place] [address] Deputy Director Of Finance: Osman Rojo MD Neutrophils (Bld) [#/Vol] 6.657 10*3/uL Normal 0500-7121 [facility] Comment on above: Performed By: #### 9 2664, 6399 #### [facility] [place] [address] Deputy Director Of Finance: Osman Rojo MD Neutrophils/100 WBC (Bld) 80.2 % Normal [facility] Comment on above: Performed By: #### 9 2664, 6399 #### [facility] of [address] [place] [address] Deputy Director Of Finance: Osman Rojo MD Platelet mean volume (Bld) [Entitic vol] 9.5 fL Normal 7.5-12.5 [facility] Comment on above: Performed By: #### 9 9675, 6399 #### [facility] of [address], [address] [place] [address] Deputy Director Of Finance: Osman Rojo MD Platelets (Bld) [#/Vol] 280 10*3/uL Normal 140-400 [facility] Comment on above: Performed By: #### 9 2664, 6399 #### [facility] [place] [address] Deputy Director Of Finance: Osman Rojo MD RBC (Bld) [#/Vol] 3.77 10*6/uL Low 4.20-5.80 [facility] Comment on above: Performed By: #### 9 288, 6399 #### [facility] [place] [address] Deputy Director Of Finance: Osman Rojo MD WBC (Bld) [#/Vol] 8.3 10*3/uL Normal 3.8-10.8 [facility] Comment on above: Performed By: #### 9 0075, 6399 #### [facility] [place] [address] Deputy Director Of Finance: Osman Rojo MD COMPREHENSIVE METABOLIC PANE L W/ANION GAPon 01-28-2025 Albumin [Mass/Vol] 4.1 g/dL Normal 3.6-5.1 [facility] Comment on above: Performed By: #### 9 370, 6399 #### [facility] [place] [address] Deputy Director Of Finance: Osman Rojo MD ALP [Catalytic activity/Vol] 70 U/L Normal 35-144 [facility] Comment on above: Performed By: #### 9 441, 6399 #### [facility] [place] [address] Deputy Director Of Finance: Osman Rojo MD ALT [Catalytic activity/Vol] 18 U/L Normal 9-46 [facility] Comment on above: Performed By: #### 9 753, 6399 #### [facility] [place] [address] Deputy Director Of Finance: Osman Rojo MD AST [Catalytic activity/Vol] 19 U/L Normal 10-35 [facility] Comment on above: Performed By: #### 9 2664, 6399 #### [facility] [place] [address] Deputy Director Of Finance: Osman Rojo MD Bilirubin [Mass/Vol] 0.7 mg/dL Normal 0.2-1.2 [facility] Comment on above: Performed By: #### 9 717, 6399 #### [facility] [place] [address] Deputy Director Of Finance: Osman Rojo MD Calcium [Mass/Vol] 8.7 mg/dL Normal 8.6-10.3 [facility] Comment on above: Performed By: #### 9 814, 6399 #### [facility] [place] [address] Deputy Director Of Finance: Osman Rojo MD Chloride [Moles/Vol] 104 mmol/L Normal 98-110 [facility] Comment on above: Performed By: #### 9 852, 6399 #### [facility] [place] [address] Deputy Director Of Finance: Osman Rojo MD CO2 [Moles/Vol] 25 mmol/L Normal 20-32 [facility] Comment on above: Performed By: #### 9 547, 6399 #### [facility] [place] [address] Deputy Director Of Finance: Osman Rojo MD Creatinine [Mass/Vol] 0.87 mg/dL Normal 0.70-1.[address] [facility] Comment on above: Performed By: #### 9 724, 6399 #### [facility] of [address], [address] [place] [address] Deputy Director Of Finance: Osman Rojo MD ELECTROLYTE BALANCE 11 mmol/L (calc) Normal 7-17 [facility] Comment on above: Performed By: #### 9 1045, 6399 #### [facility] [address], [address] [place] [address] Deputy Director Of Finance: Osman Rojo MD GFR/1.73 sq M.predicted among non-blacks MDRD (S/P/Bld) [Vol rate/Area] 83 mL/min/{1.73_m2} Normal > OR = 60 [facility] Comment on above: Performed By: #### 9 547, 6399 #### [facility] [address], [address] [place] [address] Deputy Director Of Finance: Osman Rojo MD Glucose [Mass/Vol] 79 mg/dL Normal 65-99 [facility] Comment on above: Result Comment: Fasting reference interval Performed By: #### 9 811, 6399 #### [facility] [address], [address] [place] [address] Deputy Director Of Finance: Osman Rojo MD Potassium [Moles/Vol] 4.1 mmol/L Normal 3.5-5.3 [facility] Comment on above: Performed By: #### 9 881, 6399 #### [facility] [address], [address] [place] [address] Deputy Director Of Finance: Osman Rojo MD Protein [Mass/Vol] 5.9 g/dL Low 6.1-8.1 [facility] Comment on above: Performed By: #### 9 712, 6399 #### [facility] [address], [address] [place] [address] Deputy Director Of Finance: Osman Rojo MD Sodium [Moles/Vol] 140 mmol/L Normal 135-146 [facility] Comment on above: Performed By: #### 9 475, 6399 #### [facility] [address], [address] [place] [address] Deputy Director Of Finance: Osman Rojo MD Urea nitrogen [Mass/Vol] 21 mg/dL Normal 7-25 [facility] Comment on above: Performed By: #### 9 5, 0650 #### [facility] [place] [address] Deputy Director Of Finance: Osman Rojo MD DIRECT LDLon 11-21-2024 Cholesterol in LDL [Mass/Vol] 80 mg/dL Normal <100 [facility] Comment on above: Order Comment: FASTI NG:NO FASTING: NO Result Comment: Geraldine rosario elevated Triglycerides values (>1200 mg/dL) interfere with the dLDL assay. Desirable range <100 mg/dL for primary prevention; <70 mg/dL for patients with CHD or diabetic patients with > or = 2 CHD risk factors. Performed By: #### 8 293, 466, 457, 927 #### [facility] [place] [address] Deputy Director Of Finance: Osman Rojo MD FERRITINon 11-21-2024 Ferritin [Mass/Vol] 158 ng/mL Normal 24-380 [facility] Comment on above: Performed By: #### 8 293, 466, 457, 927 #### [facility] [place] [address] Deputy Director Of Finance: Osman Rojo MD FOLATE, SERUMon 11-21-2024 Folate [Mass/Vol] ng/mL Normal [facility] Comment on above: Result Comment: Refe rence Range Low: <3.4 Borderline: 3.4-5.4 Normal: >5.4 Performed By: #### 8 293, 466, 457, 927 #### [facility] [place] [address] Deputy Director Of Finance: Osman Rojo MD VITAMIN B12on 11-21-2024 Cobalamin [...] 293, 466, 457, 927 #### [facility] [address] [facility], [address] [place] [address] Deputy Director Of Finance: Osman Rojo MD CBC W Auto Differential pane l (Bld)on 11-10-2024 Basophils (Bld) [#/Vol] 0.06 x10*3/uL Normal 0.00-0.10 [facility] Comment on above: Performed By: #### 5 7021-8 #### KALIN OSBORN ([id number]) [facility] ([facility]) [address] [place] [address] 11011 Basophils/100 WBC (Bld) 0.6 % Normal 0.0-2.0 [facility] Comment on above: Performed By: #### 5 7021-8 #### KALIN OSBORN ([id number]) [facility] ([facility]) [address] [place] [address] 66851 Eosinophils (Bld) [#/Vol] 0.10 x10*3/uL Normal 0.00-0.40 [facility] Comment on above: Performed By: #### 5 7021-8 #### KALIN OSBORN ([id number]) [facility] ([facility]) [address] [place] [address] 17061 Eosinophils/100 WBC (Bld) 1.1 % Normal 0.0-6.0 [facility] Comment on above: Performed By: #### 5 7021-8 #### KALIN OSBORN ([id number]) [facility] ([facility]) [address] [place] [address] 41370 Erythrocyte distribution width (RBC) [Ratio] 13.4 % Normal 11.5-14.5 [facility] Comment on above: Performed By: #### 5 7021-8 #### KALIN OSBORN ([id number]) [facility] ([facility]) [address] [place] [address] 12711 Hematocrit (Bld) [Volume fraction] 41.4 % Normal 41.0-52.0 [facility] Comment on above: Performed By: #### 5 7021-8 #### KALIN OSBORN ([id number]) [facility] ([facility]) [address] [place] [address] 63046 Hemoglobin (Bld) [Mass/Vol] 13.0 g/dL Low 13.5-17.5 [facility] Comment on above: Performed By: #### 5 7021-8 #### KALIN OSBORN ([id number]) [facility] ([facility]) [address] [place] [address] 97089 Immature granulocytes (Bld) [#/Vol] 0.05 x10*3/uL Normal 0.00-0.50 [facility] Comment on above: Performed By: #### 5 7021-8 #### KALIN OSBORN ([id number]) [facility] ([facility]) [address] [place] [address] 20761 Immature granulocytes/100 WBC (Bld) 0.5 % Normal 0.0-0.9 [facility] Comment on above: Result Comment: Steph ture Granulocyte Count (IG) includes promyelocytes, myelocytes and metamyelocytes but does not include bands. Percent differential counts (%) should be interpreted in the context of the absolute cell counts (cells/UL). Performed By: #### 5 7021-8 #### KALIN OSBORN ([id number]) [facility] ([facility]) [address] [place] [address] 32302 Lymphocytes (Bld) [#/Vol] 1.08 x10*3/uL Normal 0.80-3.00 [facility] Comment on above: Performed By: #### 5 7021-8 #### KALIN OSBORN ([id number]) [facility] ([facility]) [address] [place] [address] 84537 Lymphocytes/100 WBC (Bld) 11.5 % Normal 13.0-44.0 [facility] Comment on above: Performed By: #### 5 7021-8 #### KALIN OSBORN ([id number]) [facility] ([facility]) [address] [place] [address] 94763 MCH (RBC) [Entitic mass] 33.2 pg Normal 26.0-34.0 [facility] Comment on above: Performed By: #### 5 7021-8 #### KALIN OSBORN ([id number]) [facility] ([facility]) [address] [place] [address] 49461 MCHC (RBC) [Mass/Vol] 31.4 g/dL Low 32.0-36.0 [facility] Comment on above: Performed By: #### 5 7021-8 #### KALIN OSBORN ([id number]) [facility] ([facility]) [address] [place] [address] 71296 MCV (RBC) [Entitic vol] 106 fL High 80-100 [facility] Comment on above: Performed By: #### 5 7021-8 #### KALIN OSBORN ([id number]) [facility] ([facility]) [address] [place] [address] 81161 Monocytes (Bld) [#/Vol] 0.85 x10*3/uL High 0.05-0.80 [facility] Comment on above: Performed By: #### 5 7021-8 #### KALIN OSBORN ([id number]) [facility] ([facility]) [address] [place] [address] 32590 Monocytes/100 WBC (Bld) 9.0 % Normal 2.0-10.0 [facility] Comment on above: Performed By: #### 5 7021-8 #### KALIN OSBORN ([id number]) [facility] ([facility]) [address] [place] [address] 06413 Neutrophils (Bld) [#/Vol] 7.27 x10*3/uL High 1.60-5.50 [facility] Comment on above: Result Comment: Perc ent differential counts (%) should be interpreted in the context of the absolute cell counts (cells/uL). Performed By: #### 5 7021-8 #### KALIN OSBORN ([id number]) [facility] ([facility]) [address] [place] [address] 34082 Neutrophils/100 WBC (Bld) 77.3 % Normal 40.0-80.0 [facility] Comment on above: Performed By: #### 5 7021-8 #### KALIN OSBORN ([id number]) [facility] ([facility]) [address] [place] [address] 98650 Nucleated RBC/100 WBC (Bld) [Ratio] 0.0 /100 WBCs Normal 0.0-0.0 [facility] Comment on above: Performed By: #### 5 7021-8 #### KALIN OSBORN ([id number]) [facility] ([facility]) [address] [place] [address] 31524 Platelets (Bld) [#/Vol] 270 x10*3/uL Normal 150-450 [facility] Comment on above: Performed By: #### 5 7021-8 #### KALIN OSBORN ([id number]) [facility] ([facility]) [address] [place] [address] 23486 RBC (Bld) [#/Vol] 3.92 x10*6/uL Low 4.50-5.90 [facility] Comment on above: Performed By: #### 5 7021-8 #### KALIN OSBORN ([id number]) [facility] ([facility]) [address] [place] [address] 62372 WBC (Bld) [#/Vol] 9.4 x10*3/uL Normal 4.4-11.3 [facility] Comment on above: Performed By: #### 5 7021-8 #### KALIN OSBORN ([id number]) [facility] ([facility]) [address] [place] [address] 14468 Comprehensive metabolic 2000 panelon 11-10-2024 Albumin BCP dye [Mass/Vol] 4.2 g/dL Normal 3.4-5.0 [facility] Comment on above: Performed By: #### 2 4323-8 #### KALIN OSBORN ([id number]) [facility] ([facility]) [address] [place] [address] 21612 ALP [Catalytic activity/Vol] 57 U/L Normal 33-136 [facility] Comment on above: Performed By: #### 2 4323-8 #### KALIN OSBORN ([id number]) [facility] ([facility]) [address] [place] [address] ALT With P-5'-P [Catalytic activity/Vol] 13 U/L Normal 10-52 [facility] Comment on above: Result Comment: Nicolette ents treated with Sulfasalazine may generate falsely decreased results for ALT. Performed By: #### 2 4323-8 #### KALIN OSBORN ([id number]) [facility] ([facility]) [address] [place] [address] Anion gap [Moles/Vol] 11 mmol/L Normal 10-20 [facility] Comment on above: Performed By: #### 2 432-8 #### KALIN OSBORN ([id number]) [facility] ([facility]) [address] [place] [address] 29898 AST With P-5'-P [Catalytic activity/Vol] 15 U/L Normal 9-39 [facility] Comment on above: Performed By: #### 2 4322-8 #### KALIN OSBORN ([id number]) [facility] ([facility]) [address] [place] [address] Bilirubin [Mass/Vol] 0.7 mg/dL Normal 0.0-1.2 [facility] Comment on above: Performed By: #### 2 432-8 #### KALIN OSBORN ([id number]) [facility] ([facility]) [address] [place] [address] 40117 Calcium [Mass/Vol] 9.0 mg/dL Normal 8.6-10.3 [facility] Comment on above: Performed By: #### 2 4323-8 #### KALIN OSBORN ([id number]) [facility] ([facility]) [address] [place] [address] 51137 Chloride [Moles/Vol] 106 mmol/L Normal 98-107 [facility] Comment on above: Performed By: #### 2 4323-8 #### KALIN OSBORN ([id number]) [facility] ([facility]) [address] [place] [address] 42517 CO2 [Moles/Vol] 28 mmol/L Normal 21-32 [facility] Comment on above: Performed By: #### 2 432-8 #### KALIN OSBORN ([id number]) [facility] ([facility]) [address] [place] [address] 13056 Creatinine [Mass/Vol] 1.00 mg/dL Normal 0.50-1.30 [facility] Comment on above: Performed By: #### 2 4322-8 #### KALIN OSBORN ([id number]) [facility] ([facility]) [address] [place] [address] 22548 Glomerular filtration rate/1.73 sq M.predicted 72 mL/min/1.73m*2 Normal >60 [facility] Comment on above: Result Comment: Calc ulations of estimated GFR are performed using the 2020 CKD-EPI Study Refit equation without the race variable for the IDMS-Traceable creatinine methods. https://jasn.asnjournals.org/content/early//ASN.70013 76151 Performed By: #### 2 432-8 #### KALIN OSBORN ([id number]) [facility] ([facility]) [address] [place] [address] 78654 Glucose [Mass/Vol] 85 mg/dL Normal 74-99 [facility] Comment on above: Performed By: #### 2 4322-8 #### KALIN OSBORN ([id number]) [facility] ([facility]) [address] [place] [address] 54319 Potassium [Moles/Vol] 4.4 mmol/L Normal 3.5-5.3 [facility] Comment on above: Performed By: #### 2 432-8 #### KALIN OSBORN ([id number]) [facility] ([facility]) [address] [place] [address] 52811 Protein [Mass/Vol] 5.8 g/dL Low 6.4-8.2 [facility] Comment on above: Performed By: #### 2 432-8 #### KALIN OSBORN ([id number]) [facility] ([facility]) [address] [place] [address] 73410 Sodium [Moles/Vol] 141 mmol/L Normal 136-145 [facility] Comment on above: Performed By: #### 2 4323-8 #### KALIN OSBORN ([id number]) [facility] ([facility]) [address] [place] [address] 77708 Urea nitrogen [Mass/Vol] 23 mg/dL Normal 6-23 [facility] Comment on above: Performed By: #### 2 4323-8 #### KALIN OSBORN ([id number]) [facility] ([facility]) [address] [place], [place] [address] CBC W Auto Differential pane l (Bld)on 09-01-2024 Basophils (Bld) [#/Vol] 0.03 x10*3/uL Normal 0.00-0.10 [facility] Comment on above: Performed By: #### 5 7021-8 #### KALIN OSBORN ([id number]) [facility] ([facility]) [address] [place] [address] 03332 Basophils/100 WBC (Bld) 0.2 % Normal 0.0-2.0 [facility] Comment on above: Performed By: #### 5 7021-8 #### KALIN OSBORN ([id number]) [facility] ([facility]) [address] [place] [address] 95702 Eosinophils (Bld) [#/Vol] 0.03 x10*3/uL Normal 0.00-0.40 [facility] Comment on above: Performed By: #### 5 7021-8 #### KALIN OSBORN ([id number]) [facility] ([facility]) [address] [place] [address] 52761 Eosinophils/100 WBC (Bld) 0.2 % Normal 0.0-6.0 [facility] Comment on above: Performed By: #### 5 7021-8 #### KALIN OSBORN ([id number]) [facility] ([facility]) [address] [place] [address] 63608 Erythrocyte distribution width (RBC) [Ratio] 13.0 % Normal 11.5-14.5 [facility] Comment on above: Performed By: #### 5 7021-8 #### KALIN OSBORN ([id number]) [facility] ([facility]) [address] [place] [address] Hematocrit (Bld) [Volume fraction] 46.1 % Normal 41.0-52.0 [facility] Comment on above: Performed By: #### 5 7021-8 #### KALIN OSBORN ([id number]) [facility] ([facility]) [address] [place] [address] 15446 Hemoglobin (Bld) [Mass/Vol] 14.6 g/dL Normal 13.5-17.5 [facility] Comment on above: Performed By: #### 5 7021-8 #### KALIN OSBORN ([id number]) [facility] ([facility]) [address] [place], [place] [address] Immature granulocytes (Bld) [#/Vol] 0.19 x10*3/uL Normal 0.00-0.50 [facility] Comment on above: Performed By: #### 5 7021-8 #### KALIN OSBORN ([id number]) [facility] ([facility]) [address] [place], [place] [address] Immature granulocytes/100 WBC (Bld) 1.3 % High 0.0-0.9 [facility] Comment on above: Result Comment: Steph ture Granulocyte Count (IG) includes promyelocytes, myelocytes and metamyelocytes but does not include bands. Percent differential counts (%) should be interpreted in the context of the absolute cell counts (cells/UL). Performed By: #### 5 7021-8 #### KALIN OSBONR ([id number]) [facility] ([facility]) [address] [place] [address] 17809 Lymphocytes (Bld) [#/Vol] 0.96 x10*3/uL Normal 0.80-3.00 [facility] Comment on above: Performed By: #### 5 7021-8 #### KALIN OSBORN ([id number]) [facility] ([facility]) [address] [place] [address] 57958 Lymphocytes/100 WBC (Bld) 6.6 % Normal 13.0-44.0 [facility] Comment on above: Performed By: #### 5 7021-8 #### KALIN OSBORN ([id number]) [facility] ([facility]) [address] [place] [address] 61103 MCH (RBC) [Entitic mass] 33.6 pg Normal 26.0-34.0 [facility] Comment on above: Performed By: #### 5 7021-8 #### KALIN OSBORN ([id number]) [facility] ([facility]) [address] [place] [address] 65545 MCHC (RBC) [Mass/Vol] 31.7 g/dL Low 32.0-36.0 [facility] Comment on above: Performed By: #### 5 7021-8 #### KALIN OSBORN ([id number]) [facility] ([facility]) [address] [place] [address] 73682 MCV (RBC) [Entitic vol] 106 fL High 80-100 [facility] Comment on above: Performed By: #### 5 7021-8 #### KALIN OSBORN ([id number]) [facility] ([facility]) [address] [place] [address] 30088 Monocytes (Bld) [#/Vol] 1.47 x10*3/uL High 0.05-0.80 [facility] Comment on above: Performed By: #### 5 7021-8 #### KALIN OSBORN ([id number]) [facility] ([facility]) [address] [place] [address] 13822 Monocytes/100 WBC (Bld) 10.2 % Normal 2.0-10.0 [facility] Comment on above: Performed By: #### 5 7021-8 #### KALIN OSBORN ([id number]) [facility] ([facility]) [address] [place] [address] 99684 Neutrophils (Bld) [#/Vol] 11.78 x10*3/uL High 1.60-5.50 [facility] Comment on above: Result Comment: Perc ent differential counts (%) should be interpreted in the context of the absolute cell counts (cells/uL). Performed By: #### 5 7021-8 #### KALIN OSBORN ([id number]) [facility] ([facility]) [address] [place] [address] 60856 Neutrophils/100 WBC (Bld) 81.5 % Normal 40.0-80.0 [facility] Comment on above: Performed By: #### 5 7021-8 #### KALIN OSBORN ([id number]) [facility] ([facility]) [address] [place] [address] 29110 Nucleated RBC/100 WBC (Bld) [Ratio] 0.0 /100 WBCs Normal 0.0-0.0 [facility] Comment on above: Performed By: #### 5 7021-8 #### KALIN OSBORN ([id number]) [facility] ([facility]) [address] [place] [address] 86629 Platelets (Bld) [#/Vol] 305 x10*3/uL Normal 150-450 [facility] Comment on above: Performed By: #### 5 7021-8 #### KALIN OSBORN ([id number]) [facility] ([facility]) [address] [place] [address] 19958 RBC (Bld) [#/Vol] 4.35 x10*6/uL Low 4.50-5.90 [facility] Comment on above: Performed By: #### 5 7021-8 #### KALIN OSBORN ([id number]) [facility] ([facility]) [address] [place] [address] 46343 WBC (Bld) [#/Vol] 14.5 x10*3/uL High 4.4-11.3 [facility] Comment on above: Performed By: #### 5 7021-8 #### KALIN OSBORN ([id number]) [facility] ([facility]) [address] [place] [address] 69394 Comprehensive metabolic 2000 panelon 09-01-2024 Albumin BCP dye [Mass/Vol] 4.2 g/dL Normal 3.4-5.0 [facility] Comment on above: Performed By: #### 2 432-8 #### KALIN OSBORN ([id number]) [facility] ([facility]) [address] [place] [address] 70067 ALP [Catalytic activity/Vol] 64 U/L Normal 33-136 [facility] Comment on above: Performed By: #### 2 432-8 #### KALIN OSBORN ([id number]) [facility] ([facility]) [address] [place] [address] 54779 ALT With P-5'-P [Catalytic activity/Vol] 20 U/L Normal 10-52 [facility] Comment on above: Result Comment: Nicolette ents treated with Sulfasalazine may generate falsely decreased results for ALT. Performed By: #### 2 4322-8 #### KALIN OSBORN ([id number]) [facility] ([facility]) [address] [place] [address] 44631 Anion gap [Moles/Vol] 11 mmol/L Normal 10-20 [facility] Comment on above: Performed By: #### 2 4322-8 #### KALIN OSBORN ([id number]) [facility] ([facility]) [address] [place] [address] 94151 AST With P-5'-P [Catalytic activity/Vol] 14 U/L Normal 9-39 [facility] Comment on above: Performed By: #### 2 4322-8 #### KALIN OSBORN ([id number]) [facility] ([facility]) [address] [place] [address] 67622 Bilirubin [Mass/Vol] 0.8 mg/dL Normal 0.0-1.2 [facility] Comment on above: Performed By: #### 2 4322-8 #### KALIN OSBORN ([id number]) [facility] ([facility]) [address] [place] [address] 19132 Calcium [Mass/Vol] 9.2 mg/dL Normal 8.6-10.3 [facility] Comment on above: Performed By: #### 2 4322-8 #### KALIN OSBORN ([id number]) [facility] ([facility]) [address] [place] [address] Chloride [Moles/Vol] 105 mmol/L Normal 98-107 [facility] Comment on above: Performed By: #### 2 4323-8 #### KALIN OSBORN ([id number]) [facility] ([facility]) [address] [place] [address] CO2 [Moles/Vol] 29 mmol/L Normal 21-32 [facility] Comment on above: Performed By: #### 2 432-8 #### KALIN OSBORN ([id number]) [facility] ([facility]) [address] [place] [address] 24012 Creatinine [Mass/Vol] 0.92 mg/dL Normal 0.50-1.30 [facility] Comment on above: Performed By: #### 2 4323-8 #### KALIN OSBORN ([id number]) [facility] ([facility]) [address] [place] [address] 85123 Glomerular filtration rate/1.73 sq M.predicted 80 mL/min/1.73m*2 Normal >60 [facility] Comment on above: Result Comment: Calc ulations of estimated GFR are performed using the 2020 CKD-EPI Study Refit equation without the race variable for the IDMS-Traceable creatinine methods. https://jasn.asnjournals.org/content//ASN.75060 46052 Performed By: #### 2 4323-8 #### KALIN OSBORN ([id number]) [facility] ([facility]) [facility] [place] [address] Glucose [Mass/Vol] 52 mg/dL Low 74-99 [facility] Comment on above: Performed By: #### 2 4323-8 #### KALIN OSBORN ([id number]) [facility] ([facility]) [facility] [place] [address] Potassium [Moles/Vol] 4.0 mmol/L Normal 3.5-5.3 [facility] Comment on above: Performed By: #### 2 4323-8 #### KALIN OSBORN ([id number]) [facility] ([facility]) [address] [place] [address] Protein [Mass/Vol] 6.2 g/dL Low 6.4-8.2 [facility] Comment on above: Performed By: #### 2 4323-8 #### KALIN OSBORN ([id number]) [facility] ([facility]) [address] [place], [place] [address] Sodium [Moles/Vol] 141 mmol/L Normal 136-145 [facility] Comment on above: Performed By: #### 2 432-8 #### KALIN OSBORN ([id number]) [facility] ([facility]) [address] [place] [address] Urea nitrogen [Mass/Vol] 30 mg/dL High 6-23 [facility] Comment on above: Performed By: #### 2 432-8 #### KALIN OSBORN ([id number]) [facility] ([facility]) [address] [place] [address] ECG 12 Leadon 09-01-2024 79 bpm, NSR, no ST/T cxhanges [facility] Work Phone: [facility] Work Phone: TSH WITH REFLEX TO FREE T4 I F ABNORMALon 09-01-2024 TSH Qn 2.99 m[IU]/L Normal 0.44-3.98 [facility] Comment on above: Order Comment: TSH t esting is performed using different testing methodology at [facility] than at other [facility]. Direct result comparisons should only be made within the same method. Performed By: #### T HYDS #### KALIN OSBORN ([id number]) [facility] ([facility]) [address] [place], [place] [address] CBC W Auto Differential pane l (Bld)on 08-14-2024 Basophils (Bld) [#/Vol] 0.06 x10*3/uL Normal 0.00-0.10 [facility] Comment on above: Performed By: #### 5 7021-8 #### KALIN OSBORN ([id number]) [facility] ([facility]) [address] [place] [address] 50571 Basophils/100 WBC (Bld) 0.6 % Normal 0.0-2.0 [facility] Comment on above: Performed By: #### 7021-8 #### KALIN OSBORN ([id number]) [facility] ([facility]) [address] [place] [address] 78114 Eosinophils (Bld) [#/Vol] 0.14 x10*3/uL Normal 0.00-0.40 [facility] Comment on above: Performed By: #### 7021-8 #### KALIN OSBORN ([id number]) [facility] ([facility]) [address] [place] [address] 03187 Eosinophils/100 WBC (Bld) 1.4 % Normal 0.0-6.0 [facility] Comment on above: Performed By: #### 7021-8 #### KALIN OSBORN ([id number]) [facility] ([facility]) [address] [place] [address] 71955 Erythrocyte distribution width (RBC) [Ratio] 13.1 % Normal 11.5-14.5 [facility] Comment on above: Performed By: #### 5 7021-8 #### KALIN OSBORN ([id number]) [facility] ([facility]) [address] [place] [address] 58986 Hematocrit (Bld) [Volume fraction] 40.2 % Low 41.0-52.0 [facility] Comment on above: Performed By: #### 5 7021-8 #### KALIN OSBORN ([id number]) [facility] ([facility]) [address] [place] [address] 20821 Hemoglobin (Bld) [Mass/Vol] 13.0 g/dL Low 13.5-17.5 [facility] Comment on above: Performed By: #### 5 7021-8 #### KLAIN OSBORN ([id number]) [facility] ([facility]) [address] [place] [address] 23417 Immature granulocytes (Bld) [#/Vol] 0.05 x10*3/uL Normal 0.00-0.50 [facility] Comment on above: Performed By: #### 5 7021-8 #### KALIN OSBORN ([id number]) [facility] ([facility]) [address] [place] [address] 54580 Immature granulocytes/100 WBC (Bld) 0.5 % Normal 0.0-0.9 [facility] Comment on above: Result Comment: Steph ture Granulocyte Count (IG) includes promyelocytes, myelocytes and metamyelocytes but does not include bands. Percent differential counts (%) should be interpreted in the context of the absolute cell counts (cells/UL). Performed By: #### 5 7021-8 #### KALIN OSBORN ([id number]) [facility] ([facility]) [address] [place] [address] 51576 Lymphocytes (Bld) [#/Vol] 0.97 x10*3/uL Normal 0.80-3.00 [facility] Comment on above: Performed By: #### 5 7021-8 #### KALIN OSBORN ([id number]) [facility] ([facility]) [address] [place] [address] 22414 Lymphocytes/100 WBC (Bld) 10.0 % Normal 13.0-44.0 [facility] Comment on above: Performed By: #### 5 7021-8 #### KALIN OSBORN ([id number]) [facility] ([facility]) [address] [place] [address] 98945 MCH (RBC) [Entitic mass] 34.3 pg High 26.0-34.0 [facility] Comment on above: Performed By: #### 5 7021-8 #### KALIN OSBORN ([id number]) [facility] ([facility]) [address] [place] [address] 15000 MCHC (RBC) [Mass/Vol] 32.3 g/dL Normal 32.0-36.0 [facility] Comment on above: Performed By: #### 5 7021-8 #### KALIN OSBORN ([id number]) [facility] ([facility]) [address] [place] [address] 76977 MCV (RBC) [Entitic vol] 106 fL High 80-100 [facility] Comment on above: Performed By: #### 5 7021-8 #### KALIN OSBORN ([id number]) [facility] ([facility]) [address] [place] [address] 07317 Monocytes (Bld) [#/Vol] 0.55 x10*3/uL Normal 0.05-0.80 [facility] Comment on above: Performed By: #### 5 7021-8 #### KALIN OSBORN ([id number]) [facility] ([facility]) [address] [place] [address] 13818 Monocytes/100 WBC (Bld) 5.7 % Normal 2.0-10.0 [facility] Comment on above: Performed By: #### 5 7021-8 #### KALIN OSBORN ([id number]) [facility] ([facility]) [address] [place] [address] 63001 Neutrophils (Bld) [#/Vol] 7.90 x10*3/uL High 1.60-5.50 [facility] Comment on above: Result Comment: Perc ent differential counts (%) should be interpreted in the context of the absolute cell counts (cells/uL). Performed By: #### 5 7021-8 #### KALIN OSBORN ([id number]) [facility] ([facility]) [address] [place] [address] 61637 Neutrophils/100 WBC (Bld) 81.8 % Normal 40.0-80.0 [facility] Comment on above: Performed By: #### 5 7021-8 #### KALIN OSBORN ([id number]) [facility] ([facility]) [address] [place] [address] 13907 Nucleated RBC/100 WBC (Bld) [Ratio] 0.0 /100 WBCs Normal 0.0-0.0 [facility] Comment on above: Performed By: #### 5 7021-8 #### KALIN OSBORN ([id number]) [facility] ([facility]) [address] [place] [address] 21073 Platelets (Bld) [#/Vol] 249 x10*3/uL Normal 150-450 [facility] Comment on above: Performed By: #### 5 7021-8 #### KALIN OSBORN ([id number]) [facility] ([facility]) [address] [place] [address] RBC (Bld) [#/Vol] 3.79 x10*6/uL Low 4.50-5.90 [facility] Comment on above: Performed By: #### 5 7021-8 #### KALIN OSBORN ([id number]) [facility] ([facility]) [address] [place] [address] WBC (Bld) [#/Vol] 9.7 x10*3/uL Normal 4.4-11.3 [facility] Comment on above: Performed By: #### 5 7021-8 #### KALIN OSBORN ([id number]) [facility] ([facility]) [address] [place] [address] Comprehensive metabolic 2000 panelon 08-14-2024 Albumin BCP dye [Mass/Vol] 4.0 g/dL Normal 3.4-5.0 [facility] Comment on above: Performed By: #### 2 4323-8 #### KALIN OSBORN ([id number]) [facility] ([facility]) [address] [place] [address] ALP [Catalytic activity/Vol] 64 U/L Normal 33-136 [facility] Comment on above: Performed By: #### 2 4323-8 #### KALIN OSBORN ([id number]) [facility] ([facility]) [address] [place] [address] 64502 ALT With P-5'-P [Catalytic activity/Vol] 15 U/L Normal 10-52 [facility] Comment on above: Result Comment: Nicolette ents treated with Sulfasalazine may generate falsely decreased results for ALT. Performed By: #### 2 4323-8 #### KALIN OSBORN ([id number]) [facility] ([facility]) [address] [place] [address] Anion gap [Moles/Vol] 9 mmol/L Low 10-20 [facility] Comment on above: Performed By: #### 2 4323-8 #### KALIN OSBORN ([id number]) [facility] ([facility]) [address] [place] [address] AST With P-5'-P [Catalytic activity/Vol] 15 U/L Normal 9-39 [facility] Comment on above: Performed By: #### 2 4323-8 #### KALIN OSBORN ([id number]) [facility] ([facility]) [address] [place] [address] 03415 Bilirubin [Mass/Vol] 0.9 mg/dL Normal 0.0-1.2 [facility] Comment on above: Performed By: #### 2 432-8 #### KALIN OSBORN ([id number]) [facility] ([facility]) [address] [place] [address] 58070 Calcium [Mass/Vol] 8.8 mg/dL Normal 8.6-10.3 [facility] Comment on above: Performed By: #### 2 432-8 #### KALIN OSBORN ([id number]) [facility] ([facility]) [address] [place] [address] 95179 Chloride [Moles/Vol] 105 mmol/L Normal 98-107 [facility] Comment on above: Performed By: #### 2 4323-8 #### KALIN OSBORN ([id number]) [facility] ([facility]) [address] [place] [address] 03645 CO2 [Moles/Vol] 30 mmol/L Normal 21-32 [facility] Comment on above: Performed By: #### 2 4323-8 #### KALIN OSBORN ([id number]) [facility] ([facility]) [address] [place] [address] 65770 Creatinine [Mass/Vol] 0.91 mg/dL Normal 0.50-1.30 [facility] Comment on above: Performed By: #### 2 4323-8 #### KALIN OSBORN ([id number]) [facility] ([facility]) [address] [place] [address] 76751 Glomerular filtration rate/1.73 sq M.predicted 81 mL/min/1.73m*2 Normal >60 [facility] Comment on above: Result Comment: Calc ulations of estimated GFR are performed using the 2020 CKD-EPI Study Refit equation without the race variable for the IDMS-Traceable creatinine methods. https://jasn.asnjournals.org/content/early//ASN.08322 48496 Performed By: #### 2 4323-8 #### KALIN OSBORN ([id number]) [facility] ([facility]) [address] [place] [address] 68818 Glucose [Mass/Vol] 120 mg/dL High 74-99 [facility] Comment on above: Performed By: #### 2 4323-8 #### KALIN OSBORN ([id number]) [facility] ([facility]) [address] [place] [address] 93691 Potassium [Moles/Vol] 4.2 mmol/L Normal 3.5-5.3 [facility] Comment on above: Performed By: #### 2 4323-8 #### KALIN OSBORN ([id number]) [facility] ([facility]) [address] [place] [address] 25604 Protein [Mass/Vol] 5.5 g/dL Low 6.4-8.2 [facility] Comment on above: Performed By: #### 2 4323-8 #### KALIN OSBORN ([id number]) [facility] ([facility]) [address] [place] [address] 67907 Sodium [Moles/Vol] 140 mmol/L Normal 136-145 [facility] Comment on above: Performed By: #### 2 4323-8 #### KALIN OSBORN ([id number]) [facility] ([facility]) [address] [place] [address] 38325 Urea nitrogen [Mass/Vol] 22 mg/dL Normal 6-23 [facility] Comment on above: Performed By: #### 2 4323-8 #### KALIN MILLSLI ([id number]) [facility] ([facility]) [address] [place] [address] TRANSTHORACIC ECHO (TTE) COM Aubrey 07-31-2024 TRANSTHORACIC ECHO (TTE) COMPLETE [place] [id number] [phone], TRANSTHORACIC ECHOCARDIOGRAM REPORT Patient Name: FAWN CAMERON Reading Physician: [id number] Otoniel Salcedo MD Study Date: 07/31/2024 Ordering Provider: Fab SALCEDO MRN/PID: [id number] Fellow: Nurse: Clemente Brown RN Date of /Age: 5 1935 / years Molder Inflated Ball: Howard Viveros RDCS Gender: M Additional Staff: Height: 167.64 cm Admit Date: Weight: 67.59 kg Admission Status: Outpatient BSA / BMI: 1.76 m2 / 24.05 Department Location: [facility] Echo Lab kg/m2 Blood Pressure: 112 /65 mmHg Study Type: TRANSTHORACIC ECHO (TTE) COMPLETE Diagnosis/ICD: Personal history of transient ischemic attack (TIA), 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 Work Phone: Aortic Valve Area by Continuity of VTI 1.[address] [facility] Work Phone: AV mn grad 6.[address] [facility] Work Phone: AV pk grad 10.[address] [facility] Work Phone: AV pk neetu 1.63 m/s [facility] Work Phone: LA vol index A/L 18.0 ml/m2 [facility] Work Phone: LV A4C EF 61.[address] [facility] Work Phone: LV Biplane EF 62 % [facility] Work Phone: LV EF 62 % [facility] Work Phone: LVIDd 4.[address] [facility] Work Phone: LVOT diam 1.[address] [facility] Work Phone: MV E/A ratio 0.[address] [facility] Work Phone: RV free wall pk S' 12.80 cm/s [facility] Work Phone: RVSP 27.[address] [facility] Work Phone: Tricuspid annular plane systolic excursion 2.[address] [facility] Work Phone: [facility] Work Phone: US [place] [address] ext-[phone], TRANSTHORACIC ECHOCARDIOGRAM REPORT Patient Name: FAWN Lee Physician: Fab Salcedo MD Study Date: 07/31/2024 Ordering Provider: Fab SALCEDO MRN/PID: [id number] Fellow: Nurse: Clemente Brown RN Date of /Age: 5 1935 / 89 years Molder Inflated Ball: Howard Viveros [facility] Gender: M Additional Staff: Height: 167.64 cm Admit Date: Weight: 67.59 kg Admission Status: Outpatient BSA / BMI: 1.76 m2 / 24.05 Department Location: [facility] Echo Lab kg/m2 Blood Pressure: 112 /65 mmHg Study Type: TRANSTHORACIC ECHO (TTE) COMPLETE Diagnosis/ICD: Personal history of transient ischemic attack (TIA), 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 Otoniel Lim MD - 07/31/2024 [place] [address] ext-[phone], TRANSTHORACIC ECHOCARDIOGRAM REPORT Patient Name: FAWN CAMERON Reading Physician: [id number] Salcedo MD Study Date: 07/31/2024 Ordering Provider: Fab SALCEDO MRN/PID: [id number] Fellow: Nurse: Clemente Brown RN Date of /Age: 5 1935 / years Molder Inflated Ball: Howard Viveros RDCS Gender: M Additional Staff: Height: 167.64 cm Admit Date: Weight: 67.59 kg Admission Status: Outpatient BSA / BMI: 1.76 m2 / 24.05 Department Location: [facility] Echo Lab kg/m2 Blood Pressure: 112 /65 mmHg Study Type: TRANSTHORACIC ECHO (TTE) COMPLETE Diagnosis/ICD: Personal history of transient ischemic attack (TIA), 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 Work Phone: MR LUMBAR SPINE WO IV CONTRA STon 07-29-2024 MR LUMBAR SPINE WO IV CONTRAST Interpreted By: David Cedillo, STUDY: MR LUMBAR SPINE WO IV CONTRAST; 07/29/2024 3:22 pm INDICATION: Signs/Symptoms:RADICU LOPATHY LUMBAR. COMPARISON: 10/06/2021 ACCESSION NUMBER(S): [id number] ORDERING CLINICIAN: MACK GALEANA TECHNIQUE: Sagittal STIR, sagittal T2, sagittal T1, axial T2, axial T1 weighted MRI images of the lumbar spine were obtained without intravenous contrast administration. FINDINGS: The coronal entry level paralegal images demonstrate a dextrocurvature of the lumbar [...] changes and ligamentum flavum hypertrophy contributing to sidv-ta-sypdcliz spinal canal narrowing. There is vjpt-oh-jzofypzx encroachment upon the neural foramen bilaterally. At [...] and mild ligamentum flavum hypertrophy. There is fikr-dd-tnmdvdar spinal canal narrowing. There is no significant neural foraminal narrowing. 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 There is 2 mm of anterolisthesis of L3 on L4 and 2 mm of retrolisthesis of L1 on L2. 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 MACRO: None. Signed by: David Cedillo 07/31/2024 9:50 AM Dictation workstation: [id number] [facility] MR PELVIS WO IV CONTRASTon 1 MR PELVIS WO IV CONTRAST Interpreted By: Clement Estevez, STUDY: MRI of the pelvis without IV contrast; 07/29/2024 3:22 pm INDICATION: Signs/Symptoms:RADICU LOPATHY LUMBAR. ,M54.16 Radiculopathy, lumbar region COMPARISON: None. ACCESSION NUMBER(S): [id number] ORDERING CLINICIAN: MACK GALEANA TECHNIQUE: MR imaging [...] as stated. This study was interpreted at [facility], [place], [place]. MACRO: None Signed by: Clement Estevez 07/30/2024 12:15 PM Dictation workstation: [id number] [facility] US.doppler [facility] [place] [address] [phone], Vascular Lab Report VASC US AORTA ILIAC DUPLEX COMPLETE Patient Name: FAWN CAMERON Reading Physician: [id number] Miller Abdalla MD, RPVI Study Date: 06/17/2024 Ordering Provider: [id number] DON BARRERA MRN/PID: [id number] Fellow: Technologist: Annamaria Cornejo RVT/ Date of /Age: 5 1935 / 89 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: Gender: M Admission Status: Outpatient Location Performed: [facility] Diagnosis/ICD: Abdominal aortic aneurysm, without rupture, unspecified-I71.40 CPT Codes: 06765 Duplex Aorta/IVC/Iliac/Bypas s Graft CONCLUSIONS: Aorta/Common Iliac [...] Proximal 1.40 cm 1.30 cm 142.00 cm/s [id number] Miller Abdalla MD, RPLUIS Final JANETO Miller Abdalla MD - 06/17/2024 [place] [address] [phone], Vascular Lab Report VAS US AORTA ILIAC DUPLEX COMPLETE Patient Name: FAWN Lee Physician: [id number] Miller Abdalla MD, RPLUIS Study Date: 06/17/2024 Ordering Provider: [id number] DON BARRERA MRN/PID: [id number] Fellow: Technologist: Annamaria Cornejo RVT/ Date of /Age: 5 1935 / 89 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: Gender: M Admission Status: Outpatient Location Performed: [facility] Diagnosis/ICD: Abdominal aortic aneurysm, without rupture, unspecified-I71.40 CPT Codes: 01977 Duplex Aorta/IVC/Iliac/Bypas s Graft CONCLUSIONS: Aorta/Common Iliac [...] Proximal 1.40 cm 1.30 cm 142.00 cm/s [id number] Miller Abdalla MD, SILVANA Final [facility] Work Phone: Radiology Study observation (narrative) [facility] Work Phone: US.doppler Aorta and Iliac a rtery - bilateralOrdered By: Miller Abdalla on 06-17-[address] [facility] Work Phone: VASC US AORTA ILIAC DUPLEX C OMPLETEon 06-17-2024 VASC US AORTA ILIAC [place] [address] [phone], Vascular Lab Report VASC US AORTA ILIAC DUPLEX COMPLETE Patient Name: FAWN CAMERON Reading Physician: [id number] Miller Abdalla MD, RPVI Study Date: 06/17/2024 Ordering Provider: [id number] DON BARRERA MRN/PID: [id number] Fellow: Technologist: Annamaria Cornejo RVT/ Date of /Age: 5 1935 / 89 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: Gender: M Admission Status: Outpatient Location Performed: [facility] Diagnosis/ICD: Abdominal aortic aneurysm, without rupture, unspecified-I71.40 CPT Codes: 88273 Duplex Aorta/IVC/Iliac/Bypas s Graft CONCLUSIONS: Aorta/Common Iliac [...] Proximal 1.40 cm 1.30 cm 142.00 cm/s [id number] Miller Abdalla MD, SILVANA Final [facility] XR HIP LEFT WITH PELVIS WHEN PERFORMED 2 OR 3 VIEWSon 06-12-2024 XR HIP LEFT WITH PELVIS WHEN PERFORMED 2 OR 3 VIEWS Interpreted By: Cheryle Park, STUDY: Single view pelvis. Left hip, two views. INDICATION: Signs/Symptoms:pain COMPARISON: None. ACCESSION NUMBER(S): [id number] ORDERING CLINICIAN: DON BARRERA FINDINGS: No acute [...] Cheryle Park 06/14/2024 10:29 PM Dictation workstation: [id number] [facility] OCT MACULA CIRRUS OU (BOTH E YES)on 03-05-2024 [facility] Radiology Study observation (narrative) [facility] CBC W Auto Differential pane l (Bld)on 12-07-2023 Basophils (Bld) [#/Vol] 0.06 10*3/uL [facility] Basophils/100 WBC (Bld) 0.6 % 0.0 - 2.0 % [facility] Eosinophils (Bld) [#/Vol] 0.11 10*3/uL [facility] Eosinophils/100 WBC (Bld) 1.0 % 0.0 - 6.0 % [facility] Erythrocyte distribution width (RBC) [Ratio] 12.9 % 11.5 - 14.5 % [facility] Hematocrit (Bld) [Volume fraction] 44.5 % 41.0 - 52.0 % [facility] Hemoglobin (Bld) [Mass/Vol] 14.8 g/dL 13.5 - 17.5 g/dL [facility] Immature granulocytes (Bld) [#/Vol] 0.06 10*3/uL [facility] Immature granulocytes/100 WBC (Bld) 0.6 % 0.0 - 0.9 % [facility] Comment on above: Immature Granulocyte Count (IG) includes promyelocytes, myelocytes and metamyelocytes but does not include bands. Percent differential counts (%) should be interpreted in the context of the absolute cell counts (cells/UL). Interpretation and review of laboratory results Abnormal [facility] Lymphocytes (Bld) [#/Vol] 0.97 10*3/uL [facility] Lymphocytes/100 WBC (Bld) 9.2 % 13.0 - 44.0 % [facility] MCH (RBC) [Entitic mass] 33.8 pg 26.0 - 34.[address] [facility] MCHC (RBC) [Mass/Vol] 33.3 g/dL 32.0 - 36.0 g/dL [facility] MCV (RBC) [Entitic vol] 102 fL High 80 - [address] [facility] Monocytes (Bld) [#/Vol] 0.87 10*3/uL High [facility] Monocytes/100 WBC (Bld) 8.3 % 2.0 - 10.0 % [facility] Neutrophils (Bld) [#/Vol] 8.44 10*3/uL High [facility] Comment on above: Percent differential counts (%) should be interpreted in the context of the absolute cell counts (cells/uL). Neutrophils/100 WBC (Bld) 80.3 % 40.0 - 80.0 % [facility] Nucleated RBC/100 WBC (Bld) [Ratio] 0.0 % [facility] Platelets (Bld) [#/Vol] 298 10*3/uL [facility] RBC (Bld) [#/Vol] 4.38 10*6/uL Low [facility] WBC (Bld) [#/Vol] 10.5 10*3/uL [facility] Comprehensive metabolic 2000 panelon 12-07-2023 Albumin BCP dye [Mass/Vol] 4.4 g/dL 3.4 - 5.0 g/dL [facility] ALP [Catalytic activity/Vol] 76 U/L 33 - 136 U/L [facility] ALT With P-5'-P [Catalytic activity/Vol] 15 U/L 10 - 52 U/L [facility] Comment on above: Patients treated wit h Sulfasalazine may generate falsely decreased results for ALT. Anion gap [Moles/Vol] 13 mmol/L 10 - 2 0 mmol/L [facility] AST With P-5'-P [Catalytic activity/Vol] 17 U/L 9 - 39 U/L [facility] Bilirubin [Mass/Vol] 0.6 mg/dL 0.0 - 1 .2 mg/dL [facility] Calcium [Mass/Vol] 8.9 mg/dL 8.6 - 10. 3 mg/dL [facility] Chloride [Moles/Vol] 102 mmol/L 98 - 10 7 mmol/L [facility] CO2 [Moles/Vol] 24 mmol/L 21 - 32 mmol/L [facility] Creatinine [Mass/Vol] 0.93 mg/dL 0.50 - 1.30 mg/dL [facility] GFR/1.73 sq M.predicted among non-blacks MDRD (S/P/Bld) [Vol rate/Area] 79 mL/min/{1.73_m2} - PINF [facility] Comment on above: Calculations of leonides mated GFR are performed using the 2020 CKD-EPI Study Refit equation without the race variable for the IDMS-Traceable creatinine methods. https://jasn.asnjournals.org/content//ASN.75819 79515 Glucose [Mass/Vol] 96 mg/dL 74 - 99 mg/dL [facility] Interpretation and review of laboratory results Abnormal [facility] Potassium [Moles/Vol] 3.9 mmol/L 3.5 - 5.3 mmol/L [facility] Protein [Mass/Vol] 6.6 g/dL 6.4 - 8.2 g/dL [facility] Sodium [Moles/Vol] 135 mmol/L Low 136 - 145 mmol/L [facility] Urea nitrogen [Mass/Vol] 22 mg/dL 6 - 23 mg/dL [facility] MR Brain WO contraston 12-07 No acute infarct, intracranial mass effect or midline shift. 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 I personally reviewed the images/study and I agree with the findings as stated by Dr. Cabrera. MACRO: None Signed by: Kvng Meléndez 12/07/2023 12:24 PM Dictation workstation: [id number] MMODAL Interpreted By: Kvng Meléndez and Muddasani David STUDY: MR BRAIN WO IV CONTRAST; 12/07/2023 11:21 am INDICATION: Signs/Symptoms:dizzin ess. COMPARISON: CT of the head 11/15/2023. MRI of the brain 01/25/2021. ACCESSION NUMBER(S): [id number] ORDERING CLINICIAN: CELSO CABEZAS TECHNIQUE: Noncontrast axial [...] Kvng Meléndez MD - 12/07/2023 Interpreted By: MalakKvng and Muddasani David STUDY: MR BRAIN WO IV CONTRAST; 12/07/2023 11:21 am INDICATION: Signs/Symptoms:dizzin ess. COMPARISON: CT of the head 11/15/2023. MRI of the brain 01/25/2021. ACCESSION NUMBER(S): [id number] ORDERING CLINICIAN: CELSO CABEZAS TECHNIQUE: Noncontrast axial [...] Kvng Meléndez 12/07/2023 12:24 PM Dictation workstation: [id number] [facility] Work Phone: Radiology Study observation (narrative) [facility] Work Phone: MR Brain WO contrastOrdered By: Kvng Meléndez on 12-07-[address] [facility] Work Phone: Tropinin I.cardiac panel Hig h sensitivity methodon 12-07-2023 Interpretation and review of laboratory results Normal [facility] Less than 99th percentile of normal [...] performed using a different testing methodology at [facility] than at other [facility]. Direct result comparisons should only be made within the same method. [facility] Troponin I, High Sensitivity on 12-07-2023 Tropinin I.cardiac panel High sensitivity method 6 ng/L 0 - 20 ng/L [facility] Urinalysis complete W Reflex Culture panel (U)Ordered By: Erica Villa on 12-07-2023 Appearance (U) Clear Clear [facility] Bilirubin (U) [Mass/Vol] Negative NEGATIVE [facility] Color (U) Straw Straw, Yellow [facility] Glucose Auto test strip (U) [Mass/Vol] Negative NEGATIVE mg/dL [facility] Interpretation and review of laboratory results Normal [facility] Ketones (U) [Mass/Vol] Negative NEGAT DERRELL mg/dL [facility] Leukocyte esterase Auto test strip Ql (U) Negative NEGATIVE [facility] Nitrite Auto test strip Ql (U) Negative NEGATIVE [facility] pH (U) 7.0 [pH] 5.0, 5.5, 6.0, 6.5, 7.0, 7.5, 8.[address] [facility] Protein (U) [Mass/Vol] Negative NEGAT DERRELL mg/dL [facility] RBC (U) [#/Vol] Negative NEGATIVE [facility] Specific gravity (U) [Rel density] 1.006 1.005 - 1.[address] [facility] Urobilinogen (U) [Mass/Vol] mg/dL NINF - 2.0 mg/dL [facility] CBC W Auto Differential pane l (Bld)on 11-15-2023 Basophils (Bld) [#/Vol] 0.04 10*3/uL [facility] Basophils/100 WBC (Bld) 0.5 % 0.0 - 2.0 % [facility] Eosinophils (Bld) [#/Vol] 0.13 10*3/uL [facility] Eosinophils/100 WBC (Bld) 1.7 % 0.0 - 6.0 % [facility] Erythrocyte distribution width (RBC) [Ratio] 12.7 % 11.5 - 14.5 % [facility] Hematocrit (Bld) [Volume fraction] 41.2 % 41.0 - 52.0 % [facility] Hemoglobin (Bld) [Mass/Vol] 13.8 g/dL 13.5 - 17.5 g/dL [facility] Immature granulocytes (Bld) [#/Vol] 0.02 10*3/uL [facility] Immature granulocytes/100 WBC (Bld) 0.3 % 0.0 - 0.9 % [facility] Comment on above: Immature Granulocyte Count (IG) includes promyelocytes, myelocytes and metamyelocytes but does not include bands. Percent differential counts (%) should be interpreted in the context of the absolute cell counts (cells/UL). Interpretation and review of laboratory results Abnormal [facility] Lymphocytes (Bld) [#/Vol] 1.09 10*3/uL [facility] Lymphocytes/100 WBC (Bld) 14.2 % 13.0 - 44.0 % [facility] MCH (RBC) [Entitic mass] 33.8 pg 26.0 - 34.[address] [facility] MCHC (RBC) [Mass/Vol] 33.5 g/dL 32.0 - 36.0 g/dL [facility] MCV (RBC) [Entitic vol] 101 fL High 80 - [address] [facility] Monocytes (Bld) [#/Vol] 0.60 10*3/uL [facility] Monocytes/100 WBC (Bld) 7.8 % 2.0 - 10.0 % [facility] Neutrophils (Bld) [#/Vol] 5.77 10*3/uL High [facility] Comment on above: Percent differential counts (%) should be interpreted in the context of the absolute cell counts (cells/uL). Neutrophils/100 WBC (Bld) 75.5 % 40.0 - 80.0 % [facility] Nucleated RBC/100 WBC (Bld) [Ratio] 0.0 % [facility] Platelets (Bld) [#/Vol] 202 10*3/uL [facility] Comment on above: Platelet count verif ied by smear review. RBC (Bld) [#/Vol] 4.08 10*6/uL Low [facility] WBC (Bld) [#/Vol] 7.7 10*3/uL [facility] CT Head WO contraston 2023 No evidence of acute cortical infarct or intracranial hemorrhage. No evidence of intracranial hemorrhage or displaced skull fracture. MACRO: None Signed by: Gera Grove 11/15/2023 5:02 PM Dictation workstation: [id number] MMODAL Interpreted By: Gera Grove, STUDY: CT HEAD WO IV CONTRAST; 11/15/2023 4:58 pm INDICATION: Signs/Symptoms:foggy/ dizzy. COMPARISON: 03/10/2023 ACCESSION NUMBER(S): [id number] ORDERING CLINICIAN: BHARGAVI FELICIANO TECHNIQUE: Noncontrast axial [...] mucosal thickening of the left maxillary sinus. MMODAL Gera Grove MD - 11/15/2023 Interpreted By: Gera Grove, STUDY: CT HEAD WO IV CONTRAST; 11/15/2023 4:58 pm INDICATION: Signs/Symptoms:foggy/ dizzy. COMPARISON: 03/10/2023 ACCESSION NUMBER(S): [id number] ORDERING CLINICIAN: BHARGAVI FELICIANO TECHNIQUE: Noncontrast axial [...] Gera Grove 11/15/2023 5:02 PM Dictation workstation: [id number] [facility] Work Phone: Radiology Study observation (narrative) [facility] Work Phone: CT Head WO contrastOrdered B y: Gera Grove on 11-15-[address] [facility] Work Phone: Comprehensive metabolic 2000 panelon 11-15-2023 Albumin BCP dye [Mass/Vol] 4.4 g/dL 3.4 - 5.0 g/dL [facility] ALP [Catalytic activity/Vol] 69 U/L 33 - 136 U/L [facility] ALT With P-5'-P [Catalytic activity/Vol] 14 U/L 10 - 52 U/L [facility] Comment on above: Patients treated wit h Sulfasalazine may generate falsely decreased results for ALT. Anion gap [Moles/Vol] 11 mmol/L 10 - 2 0 mmol/L [facility] AST With P-5'-P [Catalytic activity/Vol] 19 U/L 9 - 39 U/L [facility] Bilirubin [Mass/Vol] 0.7 mg/dL 0.0 - 1 .2 mg/dL [facility] Calcium [Mass/Vol] 8.8 mg/dL 8.6 - 10. 3 mg/dL [facility] Chloride [Moles/Vol] 106 mmol/L 98 - 10 7 mmol/L [facility] CO2 [Moles/Vol] 26 mmol/L 21 - 32 mmol/L [facility] Creatinine [Mass/Vol] 0.91 mg/dL 0.50 - 1.30 mg/dL [facility] GFR/1.73 sq M.predicted among non-blacks MDRD (S/P/Bld) [Vol rate/Area] 82 mL/min/{1.73_m2} - PINF [facility] Comment on above: Calculations of leonides mated GFR are performed using the 2020 CKD-EPI Study Refit equation without the race variable for the IDMS-Traceable creatinine methods. https://jasn.asnjournals.org/content/early/ASN.99939 41165 Glucose [Mass/Vol] 90 mg/dL 74 - 99 mg/dL [facility] Interpretation and review of laboratory results Abnormal [facility] Potassium [Moles/Vol] 4.1 mmol/L 3.5 - 5.3 mmol/L [facility] Protein [Mass/Vol] 6.3 g/dL Low 6.4 - 8.2 g/dL [facility] Sodium [Moles/Vol] 139 mmol/L 136 - 145 mmol/L [facility] Urea nitrogen [Mass/Vol] 18 mg/dL 6 - 23 mg/dL [facility] Glucose Test strip manual (B ld) [Mass/Vol]on 11-15-2023 Glucose [Mass/Vol] 96 mg/dL 74 - 99 mg/dL [facility] Interpretation and review of laboratory results Normal [facility] Influenza virus A and B and SARS-CoV-2 (COVID-19) identified DONY+probe Nom (Resp)on 11-15-2023 FLUAV RNA DONY+probe Ql (Resp) Not detected Not Detected [facility] FLUBV RNA DONY+probe Ql (Resp) Not detected Not Detected [facility] Interpretation and review of laboratory results Normal [facility] SARS-CoV-2 (COVID-19) RNA DONY+probe Ql (Resp) Not detected Not Detected [facility] This assay has received FDA Emergency [...] use at [facility]. Negative results do not preclude COVID-19 infections or Influenza A/B infections, and should not be used as the sole basis for diagnosis, treatment, or other management decisions. If Influenza A/B and RSV PCR results are negative, testing for Parainfluenza virus, Adenovirus and Metapneumovirus is routinely performed for [facility] [place] and [place] in[place], and is available on other patients by placing an add-on request. [facility] Magnesiumon 11-15-2023 Magnesium [Mass/Vol] 1.95 mg/dL 1.60 - 2.40 mg/dL [facility] Magnesium [Mass/Vol]on 11-15 Interpretation and review of laboratory results Normal [facility] No Panel Informationon 11-[address] [facility] Interpretation and review of laboratory results Normal [facility] PT Coag (PPP) [Time]on 11-15 INR Coag (PPP) [Relative time] 1.1 {INR} 0.9 - 1.[address] [facility] Protime-INRon 11-15-2023 PT Coag (PPP) [Time] 12.0 s [facility] Tropinin I.cardiac panel Hig h sensitivity methodon 11-15-2023 Interpretation and review of laboratory results Normal [facility] Less than 99th percentile of normal [...] performed using a different testing methodology at [facility] than at other [facility]. Direct result comparisons should only be made within the same method. [facility] Interpretation and review of laboratory results Normal [facility] Less than 99th percentile of normal [...] performed using a different testing methodology at [facility] than at other [facility]. Direct result comparisons should only be made within the same method. [facility] Troponin I, High Sensitivity , Initialon 11-15-2023 Tropinin I.cardiac panel High sensitivity method 4 ng/L 0 - 20 ng/L [facility] Troponin, High Sensitivity, 1 Houron 11-15-2023 Tropinin I.cardiac panel High sensitivity method 5 ng/L 0 - 20 ng/L [facility] Urinalysis complete W Reflex Culture panel (U)on 11-15-2023 Appearance (U) Clear Clear [facility] Bilirubin (U) [Mass/Vol] Negative NEGATIVE [facility] Color (U) Straw Straw, Yellow [facility] Glucose Auto test strip (U) [Mass/Vol] Negative NEGATIVE mg/dL [facility] Interpretation and review of laboratory results Normal [facility] Ketones (U) [Mass/Vol] Negative NEGAT DERRELL mg/dL [facility] Leukocyte esterase Auto test strip Ql (U) Negative NEGATIVE [facility] Nitrite Auto test strip Ql (U) Negative NEGATIVE [facility] pH (U) 7.0 [pH] 5.0, 5.5, 6.0, 6.5, 7.0, 7.5, 8.[address] [facility] Protein (U) [Mass/Vol] Negative NEGAT DERRELL mg/dL [facility] RBC (U) [#/Vol] Negative NEGATIVE [facility] Specific gravity (U) [Rel density] 1.005 1.005 - 1.[address] [facility] Urobilinogen (U) [Mass/Vol] mg/dL NINF - 2.0 mg/dL [facility] XR Chest Single viewon 11-15 1. No evidence of acute cardiopulmonary process. Signed by: Aung Julien 11/15/2023 5:18 PM Dictation workstation: [id number] Interpreted By: Aung Julien, STUDY: XR CHEST 1 VIEW; 11/15/2023 5:06 pm INDICATION: Signs/Symptoms:Chest Pain. COMPARISON: Chest radiograph 11/11/2023 ACCESSION NUMBER(S): [id number] ORDERING CLINICIAN: BHARGAVI FELICIANO FINDINGS: CARDIOMEDIASTINAL SILHOUETTE: Cardiomediastinal silhouette is normal in size and configuration. LUNGS: No consolidation, pneumothorax, or significant effusion. ABDOMEN: No remarkable upper abdominal findings. BONES: No acute osseous changes. MMODAL Aung Julien MD - 11/15/2023 Interpreted By: Aung Julien, STUDY: XR CHEST 1 VIEW; 11/15/2023 5:06 pm INDICATION: Signs/Symptoms:Chest Pain. COMPARISON: Chest radiograph 11/11/2023 ACCESSION NUMBER(S): [id number] ORDERING CLINICIAN: BHARGAVI FELICIANO FINDINGS: CARDIOMEDIASTINAL SILHOUETTE: Cardiomediastinal silhouette is normal in size and configuration. LUNGS: No consolidation, pneumothorax, or significant effusion. ABDOMEN: No remarkable upper abdominal findings. BONES: No acute osseous changes. IMPRESSION: 1. No evidence of acute cardiopulmonary process. Signed by: Aung Julien 11/15/2023 5:18 PM Dictation workstation: [id number] [facility] Work Phone: Radiology Study observation (narrative) [facility] Work Phone: XR Chest Single viewOrdered By: Aung Julien on 11-15-[address] [facility] Work Phone: aPTTon 11-15-2023 aPTT Coag (PPP) [Time] [facility] Coag (PPP) [Time]on The APTT is no longe r used for monitoring Unfractionated Heparin Therapy. For monitoring Heparin Therapy, use the Heparin Assay. [facility] Basic metabolic 2000 panelon 11-11-2023 Anion gap [Moles/Vol] 12 mmol/L 10 - 2 0 mmol/L [facility] Calcium [Mass/Vol] 9.0 mg/dL 8.6 - 10. 3 mg/dL [facility] Chloride [Moles/Vol] 105 mmol/L 98 - 10 7 mmol/L [facility] CO2 [Moles/Vol] 26 mmol/L 21 - 32 mmol/L [facility] Creatinine [Mass/Vol] 0.98 mg/dL 0.50 - 1.30 mg/dL [facility] GFR/1.73 sq M.predicted among non-blacks MDRD (S/P/Bld) [Vol rate/Area] 75 mL/min/{1.73_m2} - PINF [facility] Comment on above: Calculations of leonides mated GFR are performed using the 2020 CKD-EPI Study Refit equation without the race variable for the IDMS-Traceable creatinine methods. https://jasn.asnjournals.org/content//ASN.10161 76536 Glucose [Mass/Vol] 117 mg/dL High 74 - 99 mg/dL [facility] Interpretation and review of laboratory results Abnormal [facility] Potassium [Moles/Vol] 3.8 mmol/L 3.5 - 5.3 mmol/L [facility] Sodium [Moles/Vol] 139 mmol/L 136 - 145 mmol/L [facility] Urea nitrogen [Mass/Vol] 22 mg/dL 6 - 23 mg/dL [facility] CBC W Auto Differential pane l (Bld)on 11-11-2023 Basophils (Bld) [#/Vol] 0.05 10*3/uL [facility] Basophils/100 WBC (Bld) 0.7 % 0.0 - 2.0 % [facility] Eosinophils (Bld) [#/Vol] 0.26 10*3/uL [facility] Eosinophils/100 WBC (Bld) 3.4 % 0.0 - 6.0 % [facility] Erythrocyte distribution width (RBC) [Ratio] 13.1 % 11.5 - 14.5 % [facility] Hematocrit (Bld) [Volume fraction] 41.7 % 41.0 - 52.0 % [facility] Hemoglobin (Bld) [Mass/Vol] 13.9 g/dL 13.5 - 17.5 g/dL [facility] Immature granulocytes (Bld) [#/Vol] 0.03 10*3/uL [facility] Immature granulocytes/100 WBC (Bld) 0.4 % 0.0 - 0.9 % [facility] Comment on above: Immature Granulocyte Count (IG) includes promyelocytes, myelocytes and metamyelocytes but does not include bands. Percent differential counts (%) should be interpreted in the context of the absolute cell counts (cells/UL). Interpretation and review of laboratory results Abnormal [facility] Lymphocytes (Bld) [#/Vol] 1.32 10*3/uL [facility] Lymphocytes/100 WBC (Bld) 17.3 % 13.0 - 44.0 % [facility] MCH (RBC) [Entitic mass] 33.6 pg 26.0 - 34.[address] [facility] MCHC (RBC) [Mass/Vol] 33.3 g/dL 32.0 - 36.0 g/dL [facility] MCV (RBC) [Entitic vol] 101 fL High 80 - [address] [facility] Monocytes (Bld) [#/Vol] 0.85 10*3/uL High [facility] Monocytes/100 WBC (Bld) 11.2 % 2.0 - 10.0 % [facility] Neutrophils (Bld) [#/Vol] 5.11 10*3/uL [facility] Comment on above: Percent differential counts (%) should be interpreted in the context of the absolute cell counts (cells/uL). Neutrophils/100 WBC (Bld) 67.0 % 40.0 - 80.0 % [facility] Nucleated RBC/100 WBC (Bld) [Ratio] 0.0 % [facility] Platelets (Bld) [#/Vol] 242 10*3/uL [facility] RBC (Bld) [#/Vol] 4.14 10*6/uL Low [facility] WBC (Bld) [#/Vol] 7.6 10*3/uL [facility] Natriuretic peptide B [Mass/ Vol]on 11-11-2023 Interpretation and review of laboratory results Abnormal [facility] Natriuretic peptide B (Bld) [Mass/Vol] 108 pg/mL High 0 - 99 pg/mL [facility] <100 pg/mL - Heart failure unlikely 100-299 pg/mL - Intermediate probability of acute heart failure exacerbation. Correlate with clinical context and patient history. >=300 pg/mL - Heart Failure likely. Correlate with clinical context and patient history. BNP testing is performed using different testing methodology at [facility] than at other [facility]. Direct result comparisons should only be made within the same method. [facility] No Panel Informationon 11-[address] [facility] Tropinin I.cardiac panel Hig h sensitivity methodon 11-11-2023 Interpretation and review of laboratory results Normal [facility] Less than 99th percentile of normal [...] performed using a different testing methodology at [facility] than at other [facility]. Direct result comparisons should only be made within the same method. [facility] Troponin I, High Sensitivity on 11-11-2023 Tropinin I.cardiac panel High sensitivity method 5 ng/L 0 - 20 ng/L [facility] Urinalysis complete W Reflex Culture panel (U)on 11-11-2023 Appearance (U) Clear Clear [facility] Bilirubin (U) [Mass/Vol] Negative NEGATIVE [facility] Color (U) Straw Straw, Yellow [facility] Glucose Auto test strip (U) [Mass/Vol] Negative NEGATIVE mg/dL [facility] Interpretation and review of laboratory results Normal [facility] Ketones (U) [Mass/Vol] Negative NEGAT DERRELL mg/dL [facility] Leukocyte esterase Auto test strip Ql (U) Negative NEGATIVE [facility] Nitrite Auto test strip Ql (U) Negative NEGATIVE [facility] pH (U) 6.0 [pH] 5.0, 5.5, 6.0, 6.5, 7.0, 7.5, 8.[address] [facility] Protein (U) [Mass/Vol] Negative NEGAT DERRELL mg/dL [facility] RBC (U) [#/Vol] Negative NEGATIVE [facility] Specific gravity (U) [Rel density] 1.013 1.005 - 1.[address] [facility] Urobilinogen (U) [Mass/Vol] mg/dL NINF - 2.0 mg/dL [facility] XR Chest Single viewon 11-11 No acute cardiopulmonary process. MACRO: None Signed by: Wanda Montalvo 11/11/2023 9:44 PM Dictation workstation: [id number] MMODAL Interpreted By: Wanda Montalvo, STUDY: XR CHEST 1 VIEW; 11/11/2023 9:29 pm INDICATION: Signs/Symptoms:Genera lized weakness. COMPARISON: Chest x-ray 09/23/2022 ACCESSION NUMBER(S): [id number] ORDERING CLINICIAN: SAI MYERS FINDINGS: CARDIOMEDIASTINAL SILHOUETTE: Cardiac silhouette is borderline enlarged. Atherosclerotic calcification of the aorta. LUNGS: No consolidation, pleural effusion or pneumothorax. ABDOMEN: Oral contrast noted in the visualized colon. 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 [facility] Wanda Montalvo MD - 11/11/2023 Interpreted By: Wanda Montalvo, STUDY: XR CHEST 1 VIEW; 11/11/2023 9:29 pm INDICATION: Signs/Symptoms:Genera lized weakness. COMPARISON: Chest x-ray 09/23/2022 ACCESSION NUMBER(S): [id number] ORDERING CLINICIAN: SAI MYERS FINDINGS: CARDIOMEDIASTINAL SILHOUETTE: Cardiac silhouette is borderline enlarged. Atherosclerotic calcification of the aorta. LUNGS: No consolidation, pleural effusion or pneumothorax. ABDOMEN: Oral contrast noted in the visualized colon. 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 IMPRESSION: No acute cardiopulmonary process. MACRO: None Signed by: Wanda Montalvo 11/11/2023 9:44 PM Dictation workstation: [id number] [facility] Work Phone: Radiology Study observation (narrative) [facility] Work Phone: XR Chest Single viewOrdered By: Wanda Montalvo on 11-11-[address] [facility] Work Phone: RF Esophagus Views W barium contrast Julito 11-06-2023 1. Small to moderate sized sliding hiatal hernia and gastroesophageal reflux. 2. Minimal esophageal dysmotility noted. Signed by: João Zamora 11/06/2023 12:10 PM Dictation workstation: [id number] MMODAL Interpreted By: João Zamora, STUDY: FL GI ESOPHAGRAM; 11/06/2023 9:01 am INDICATION: Signs/Symptoms:Hiatal hernia, dysphagia. COMPARISON: None. ACCESSION NUMBER(S): [id number] ORDERING CLINICIAN: DAYSI ARENAS TECHNIQUE: Initial entry level paralegal radiograph of the esophagus was obtained. Multiple fluoroscopic spot images were obtained after the administration of effervescent crystals and 100 mL of barium contrast. The patient tolerated the procedure well. Fluoroscopic time was 1.8 minutes. FINDINGS: Initial entry level paralegal image is grossly unremarkable. Fluoroscopic images demonstrate [...] Signs/Symptoms:Hiatal hernia, dysphagia. COMPARISON: None. ACCESSION NUMBER(S): [id number] ORDERING CLINICIAN: DAYSI ARENAS TECHNIQUE: Initial entry level paralegal radiograph of the esophagus was obtained. Multiple fluoroscopic spot images were obtained after the administration of effervescent crystals and 100 mL of barium contrast. The patient tolerated the procedure well. Fluoroscopic time was 1.8 minutes. FINDINGS: Initial entry level paralegal image is grossly unremarkable. Fluoroscopic images demonstrate [...] João Zamora 11/06/2023 12:10 PM Dictation workstation: [id number] [facility] Work Phone: Radiology Study observation (narrative) [facility] Work Phone: RF Esophagus Views W barium contrast POOrdered By: João Zamora on 11-06-[address] [facility] Work Phone: Skin prepon 10-24-2023 Prepped for avulsion [facility] POCT UA (nonautomated w/o mi croscopy) manually resultedon 10-06-2023 Appearance (U) Clear Clear [facility] Work Phone: Glucose Test strip (U) [Mass/Vol] Negative NEGATIVE mg/dl [facility] Work Phone: Hemoglobin Ql (U) TRACE-Intact Abnormal NEGATIVE Unive [facility] Work Phone: Interpretation and review of laboratory results Abnormal [facility] Work Phone: Leukocyte esterase Test strip Ql (U) Negative NEGATIVE [facility] Work Phone: Nitrite Ql (U) Negative NEGATIVE [facility] Work Phone: pH (U) 7.0 [pH] No Reference Range Established [facility] Work Phone: POC Bilirubin, Urine Negative NEGATIVE [facility] Work Phone: POC Color, Urine Yellow Straw, Yellow, Light-Yellow [facility] Work Phone: POC Ketones, Urine Negative NEGATIVE mg/dl [facility] Work Phone: POC Protein, Urine Negative NEGATIVE, 30 (1+) mg/dl [facility] Work Phone: POC Specific [place], Urine 1.015 1.005 - 1.[address] [facility] Work Phone: POC Urobilinogen, Urine 0.2 0.2, 1.0 EU/DL [facility] Work Phone: [facility] Work Phone: Measure post void residualon 09-17-[address] [facility] Work Phone: [facility] Work Phone: Basic metabolic 2000 panelon 07-23-2023 Anion gap [Moles/Vol] 13 mmol/L 10 - 2 0 mmol/L [facility] Calcium [Mass/Vol] 8.5 mg/dL Low 8.6 - 10. 3 mg/dL [facility] Chloride [Moles/Vol] 108 mmol/L High 98 - 10 7 mmol/L [facility] CO2 [Moles/Vol] 23 mmol/L 21 - 32 mmol/L [facility] Creatinine [Mass/Vol] 0.86 mg/dL 0.50 - 1.30 mg/dL [facility] GFR/1.73 sq M.predicted MDRD (S/P/Bld) [Vol rate/Area] 84 mL/min/{1.73_m2} - PINF [facility] Comment on above: Calculations of leonides mated GFR are performed using the 2020 CKD-EPI Study Refit equation without the race variable for the IDMS-Traceable Creatinine Methods. https://jasn.asnjournals.org/content/early/ASN.50027 96661 Glucose [Mass/Vol] 92 mg/dL 74 - 99 mg/dL [facility] Interpretation and review of laboratory results Abnormal [facility] Potassium [Moles/Vol] 3.8 mmol/L 3.5 - 5.3 mmol/L [facility] Sodium [Moles/Vol] 140 mmol/L 136 - 145 mmol/L [facility] Urea nitrogen [Mass/Vol] 20 mg/dL 6 - 23 mg/dL [facility] Magnesiumon 07-23-2023 Magnesium [Mass/Vol] 1.66 mg/dL 1.60 - 2.40 mg/dL [facility] Magnesium [Mass/Vol]on 07-23 Interpretation and review of laboratory results Normal [facility] CBC W Auto Differential pane l (Bld)on 07-22-2023 Basophils (Bld) [#/Vol] 0.05 10*3/uL [facility] Basophils/100 WBC (Bld) 0.5 % 0.0 - 2.0 % [facility] Eosinophils (Bld) [#/Vol] 0.15 10*3/uL [facility] Eosinophils/100 WBC (Bld) 1.5 % 0.0 - 6.0 % [facility] Erythrocyte distribution width (RBC) [Ratio] 13.7 % 11.5 - 14.5 % [facility] Hematocrit (Bld) [Volume fraction] 38.7 % Low 41.0 - 52.0 % [facility] Hemoglobin (Bld) [Mass/Vol] 13.1 g/dL Low 13.5 - 17.5 g/dL [facility] Immature granulocytes (Bld) [#/Vol] 0.06 10*3/uL [facility] Immature granulocytes/100 WBC (Bld) 0.6 % 0.0 - 0.9 % [facility] Comment on above: Immature Granulocyte Count (IG) includes promyelocytes, myelocytes and metamyelocytes but does not include bands. Percent differential counts (%) should be interpreted in the context of the absolute cell counts (cells/UL). Interpretation and review of laboratory results Abnormal [facility] Lymphocytes (Bld) [#/Vol] 0.89 10*3/uL [facility] Lymphocytes/100 WBC (Bld) 8.9 % 13.0 - 44.0 % [facility] MCH (RBC) [Entitic mass] 34.0 pg 26.0 - 34.[address] [facility] MCHC (RBC) [Mass/Vol] 33.9 g/dL 32.0 - 36.0 g/dL [facility] MCV (RBC) [Entitic vol] 101 fL High 80 - [address] [facility] Monocytes (Bld) [#/Vol] 0.90 10*3/uL [facility] Monocytes/100 WBC (Bld) 9.0 % 2.0 - 10.0 % [facility] Neutrophils (Bld) [#/Vol] 7.97 10*3/uL [facility] Comment on above: Percent differential counts (%) should be interpreted in the context of the absolute cell counts (cells/uL). Neutrophils/100 WBC (Bld) 79.5 % 40.0 - 80.0 % [facility] Nucleated RBC/100 WBC (Bld) [Ratio] 0.0 % [facility] Platelet mean volume (Bld) [Entitic vol] 8.7 fL 7.5 - 11.[address] [facility] Platelets (Bld) [#/Vol] 236 10*3/uL 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 Normal [facility] Tobacco Screening.on 023 Fall risk assessment a) No falls within the last year -Cardiology- [employer] Work Phone: Tobacco use status CPHS b) No [facility]-Cardiology- [employer] Work Phone: Joint Injection Large/Arthro centesis: R subacromial bursaon 05-31-2023 Don Barrera MD 05/31/2023 3:21 PM Joint Injection Large/Arthrocentesis: R subacromial bursa on 05/31/2023 3:19 PM Indications: pain Details: 25 G needle, posterior approach Medications: 40 mg triamcinolone acetonide 40 mg/mL Outcome: tolerated well, no immediate complications Procedure, treatment alternatives, risks and benefits explained, specific risks discussed. Consent was given by the patient. [facility] Work Phone: [facility] Work Phone: ABD AORTAon 05-10-2023 ABD AORTA Patient Name: FAWN CAMERON STUDY: US ABD AORTA; 05/10/2023 8:22 am INDICATION: known AAA, monitoring for change. COMPARISON: 04/28/2022 ACCESSION NUMBER(S): [id number] ORDERING CLINICIAN: DON BARRERA TECHNIQUE: Transabdominal imaging of the abdominal [...] similar or slightly worsened. Electronically signed by: RFANKIE BOWLES MD Normal [facility] C-REACTIVE PROTEINon 03-10- 023 C-REACTIVE PROTEIN 0.18 mg/dL Normal [facility] Comment on above: Result Comment: REF VALUE < 1.00 Performed By: #### C RP ####[address] [address] CBC AND DIFFERENTIALon 03-10 % AUTOMATED IMMATURE GRAN 0.4 % Normal 0.0 - 0.9 [facility] Comment on above: Result Comment: Steph ture Granulocyte Count (IG) includes promyelocytes, myelocytes and metamyelocytes but does not include bands. Percent differential counts (%) should be interpreted in the context of the absolute cell counts (cells/L). Performed By: #### C BCDF #### [address] [address] Basophils (Bld) [#/Vol] 0.06 10*3/uL Normal 0.00 - 0.10 [facility] Comment on above: Performed By: #### C BCDF #### [address] [address] Basophils/100 WBC (Bld) 0.7 % Normal 0.0 - 2.0 [facility] Comment on above: Performed By: #### C BCDF #### [address] [address] Eosinophils (Bld) [#/Vol] 0.08 10*3/uL Normal 0.00 - 0.40 [facility] Comment on above: Performed By: #### C BCDF #### [address] [address] Eosinophils/100 WBC (Bld) 1.0 % Normal 0.0 - 6.0 [facility] Comment on above: Performed By: #### C BCDF #### [address] [address] Erythrocyte distribution width (RBC) [Ratio] 14.0 % Normal 11.5 - 14.5 [facility] Comment on above: Performed By: #### C BCDF #### [address] [address] Hematocrit (Bld) [Volume fraction] 42.4 % Normal 41.0 - 52.0 [facility] Comment on above: Performed By: #### C BCDF #### [address] [address] Hemoglobin (Bld) [Mass/Vol] 14.0 g/dL Normal 13.5 - 17.5 [facility] Comment on above: Performed By: #### C BCDF #### [address] [address] Lymphocytes (Bld) [#/Vol] 0.94 10*3/uL Normal 0.80 - 3.00 [facility] Comment on above: Performed By: #### C BCDF #### [address] [address] Lymphocytes/100 WBC (Bld) 11.4 % Normal 13.0 - 44.0 [facility] Comment on above: Performed By: #### C BCDF #### [address] [address] MCHC (RBC) [Mass/Vol] 33.0 g/dL Normal 32.0 - 36.0 [facility] Comment on above: Performed By: #### C BCDF #### [address] [address] MCV (RBC) [Entitic vol] 99 fL Normal 80 - 100 [facility] Comment on above: Performed By: #### C BCDF #### [address] [address] Monocytes (Bld) [#/Vol] 0.67 10*3/uL Normal 0.05 - 0.80 [facility] Comment on above: Performed By: #### C BCDF #### [address] [address] Monocytes/100 WBC (Bld) 8.1 % Normal 2.0 - 10.0 [facility] Comment on above: Performed By: #### C BCDF #### [address] [address] Neutrophils (Bld) [#/Vol] 6.48 10*3/uL High 1.60 - 5.50 [facility] Comment on above: Result Comment: Perc ent differential counts (%) should be interpreted in the context of the absolute cell counts (cells/L). Performed By: #### C BCDF #### [address] [address] Neutrophils/100 WBC (Bld) 78.4 % Normal 40.0 - 80.0 [facility] Comment on above: Performed By: #### C BCDF #### [address] [address] Platelets (Bld) [#/Vol] 253 10*3/uL Normal 150 - 450 [facility] Comment on above: Performed By: #### C BCDF #### [address] [address] RBC 4.29 x10E12/L Low 4.50 - 5.90 [facility] Comment on above: Performed By: #### C BCDF #### [address] [address] WBC (Bld) [#/Vol] 8.3 10*3/uL Normal 4.4 - 11.3 [facility] Comment on above: Performed By: #### C BCDF #### [address] [address] COMPREHENSIVE PANELon 2022 Albumin [Mass/Vol] 4.1 g/dL Normal 3.4 - 5.0 [facility] Comment on above: Performed By: #### C MP #### [address] [address] ALP [Catalytic activity/Vol] 78 U/L Normal 33 - 136 [facility] Comment on above: Performed By: #### C MP #### [address] [address] ALT [Catalytic activity/Vol] 15 U/L Normal 10 - 52 [facility] Comment on above: Result Comment: Nicolette ents treated with Sulfasalazine may generate falsely decreased results for ALT. Performed By: #### C MP #### [address] [address] Anion gap [Moles/Vol] 11 mmol/L Normal 10 - 20 [facility] Comment on above: Performed By: #### C MP #### [address] [address] AST [Catalytic activity/Vol] 17 U/L Normal 9 - 39 [facility] Comment on above: Performed By: #### C MP #### [address] [address] Bilirubin [Mass/Vol] 0.6 mg/dL Normal 0.0 - 1.2 [facility] Comment on above: Performed By: #### C MP #### [address] [address] Calcium [Mass/Vol] 8.9 mg/dL Normal 8.6 - 10.3 [facility] Comment on above: Performed By: #### C MP #### [address] [address] Chloride [Moles/Vol] 106 mmol/L Normal 98 - 107 [facility] Comment on above: Performed By: #### C MP #### [address] [address] Creatinine [Mass/Vol] 0.89 mg/dL Normal 0.50 - 1.30 [facility] Comment on above: Performed By: #### C MP #### [address] [address] GFR/1.73 sq M.predicted among non-blacks MDRD (S/P/Bld) [Vol rate/Area] 83 mL/min/{1.73_m2} Normal >90 [facility] Comment on above: Result Comment: CALC ULATIONS OF ESTIMATED GFR ARE PERFORMED USING THE 2020 CKD-EPI STUDY REFIT EQUATION WITHOUT THE RACE VARIABLE FOR THE IDMS-TRACEABLE CREATININE METHODS. https://jasn.asnjournals.org/content//ASN.18077 67863 Performed By: #### C MP #### [address] [address] Glucose [Mass/Vol] 104 mg/dL High 74 - 99 [facility] Comment on above: Performed By: #### C MP #### [address] [address] HCO3 (Bld) [Moles/Vol] 25 mmol/L Normal 21 - 32 [facility] Comment on above: Performed By: #### C MP #### [address] [address] Potassium [Moles/Vol] 4.1 mmol/L Normal 3.5 - 5.3 [facility] Comment on above: Performed By: #### C MP #### [address] [address] Protein [Mass/Vol] 6.3 g/dL Low 6.4 - 8.2 [facility] Comment on above: Performed By: #### C MP #### [address] [address] Sodium [Moles/Vol] 138 mmol/L Normal 136 - 145 [facility] Comment on above: Performed By: #### C MP #### [address] [address] Urea nitrogen [Mass/Vol] 18 mg/dL Normal 6 - 23 [facility] Comment on above: Performed By: #### C MP #### [address] [address] CREATINE KINASEon 03-10-2023 CK [Catalytic activity/Vol] 68 U/L Normal 0 - 325 [facility] Comment on above: Performed By: #### C K #### [address] [address] [address] HEAD WO CONTRASTon 2022 CT HEAD WO CONTRAST Patient Name: FAWN CAMERON STUDY: CT HEAD WO CONTRAST 03/10/2023 1:10 pm INDICATION: stable COMPARISON: CT head dated 01/07/2021 ACCESSION NUMBER(S): [id number] ORDERING CLINICIAN: EARLE COTTO TECHNIQUE: Contiguous axial [...] Electronically signed by: JOÃO ZAMORA MD Normal [facility] GLUCOSE-POCTon 03-10-2023 Glucose [Mass/Vol] 98 mg/dL Normal 74 - 99 [facility] Comment on above: Performed By: #### G ROBIN #### [address] [address] LACTATEon 03-10-2023 Lactate [Moles/Vol] 1.1 mmol/L Normal 0.4 - 2.0 [facility] Comment on above: Result Comment: Cha puncture immediately after or during the administration of Metamizole may lead to falsely low results. Testing should be performed immediately prior to Metamizole dosing. 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 Normal [facility] Risk Screen - Adult Emergenc yon 03-10-2023 Risk Screen - Adult Emergency Preferred Language: Preferred Language: Preferred Language for Discussing Health Care (patient/designee)Maegan wildre Patient Preferred Pharmacy: Patient Preferred Pharmacy Statement: [...] instruction; written material Cultural Considerationsnone Developmental Considerationsnone Evangelical Considerationsnone Other Learnersspouse Learning Assessment (Other Learner): Learning Assessment (Other Learner): Other learner availableyes... Learnerspouse Factors Influencing Readiness to Learnn/a Factors that Impact Ability to Learnnone Devices/Methods Used to Communicatenone Learning Preferencesverbal instruction Cultural Considerationsnone Developmental Considerationsnone Evangelical Considerationsnone Pressure Injury/TB/Substance: Pressure Injury: Do you have a coughno Smoking Statusformer smoker Alcohol Usedenies Drug Usedenies Admission Risk Screen: Significant IndicatorsComplete CAGE: CAGE: Is this an injured [place] at a [place] Center [place] no Electronic Signatures: Jaci Soto (ANNA) (Signed 10-Mar-2023 12:55) Authored: Preferred Language, Patient Preferred Pharmacy, Advanced Directives, Family Violence Adult, Learning Assessment (Patient), Learning Assessment (Other Learner), Pressure Injury/TB/Substance, Pressure Injury, CAGE Last Updated: 10-Mar-2023 12:55 by Jaci Soto (ANNA) Normal [facility] TROPONIN I, HIGH SENSITIVITY on 03-10-2023 TROPONIN I, HIGH SENSITIVITY 4 ng/L Normal 0 - [facility] Comment on above: Result Comment: . Less [...] performed using a different testing methodology at [facility] than at other [facility]. Direct result comparisons should only be made within the same method. 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 (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 [...] obeys commands Best Verbal Response: (V5) oriented [place] Score: 15 Allergies: no Patient has homicidal [...] Updated: 10-Mar-2023 12:52 by Jaci Soto (ANNA) [facility] Office Visit (Primary Care T [...] cancer screening Prostate Spec.Ag, Screen; Status:Active; Requested for:[id number]; Hyperlipidemia, unspecified hyperlipidemia type Lipid Panel; Status:Active; Requested for:[id number]; Hypertension, unspecified type Comprehensive Metabolic Panel; Status:Active; Requested for:[id number]; Patient Discussion/Summary Follow-up in 6 months with [...] 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 Normal [facility] Tobacco Screening.on 023 Adult depression screening assessment No [facility] Phone: Fall risk assessment a) No falls within the last year [facility] Phone: Tobacco use status CPHS b) No [facility] [employer] Phone: LDL, Direct, Serumon 023 Cholesterol in LDL [Mass/Vol] 112 mg/dL 0 - 129 [facility] [employer] Phone: Comment on above: Elevated levels of [...] dye [Mass/Vol] 4.1 g/dL 3.4 - 5.0 [facility] Work Phone: ALP [Catalytic activity/Vol] 85 U/L 33 - 136 [facility] Work Phone: ALT With P-5'-P [Catalytic activity/Vol] 15 U/L 10 - 52 [facility] Work Phone: Comment on above: Patients treated wit h Sulfasalazine may generate falsely decreased results for ALT. Anion gap [Moles/Vol] 12 mmol/L 10 - 20 - [facility] [facility] Work Phone: AST With P-5'-P [Catalytic activity/Vol] 20 U/L 9 - 39 -[facility] Work Phone: Bilirubin [Mass/Vol] 0.8 mg/dL 0.0 - 1.2 [facility] Work Phone: Calcium [Mass/Vol] 9.0 mg/dL 8.6 - 10.3 [facility] Work Phone: Chloride [Moles/Vol] 106 mmol/L 98 - 107 [facility] Work Phone: CO2 [Moles/Vol] 26 mmol/L 21 - 32 [facility] l [facility] Work Phone: Creatinine [Mass/Vol] 0.99 mg/dL See Below [facility] Work Phone: Comment on above: Reference Range: 0.5 0 - 1.30 Glucose [Mass/Vol] 91 mg/dL 74 - 99 -[facility] Work Phone: Potassium [Moles/Vol] 3.9 mmol/L 3.5 - 5.3 - [facility] Work Phone: Protein [Mass/Vol] 6.3 g/dL below low threshold 6.4 - 8.2 -[facility] Work Phone: Sodium [Moles/Vol] 140 mmol/L 136 - 145 [facility] ical [facility] Work Phone: Urea nitrogen [Mass/Vol] 24 mg/dL above high threshold 6 - 23 [facility] Work Phone: No Panel Informationon 10-24 74 {mL/min/1.73m2} >90 [facility] [employer] [facility] Work Phone: Comment on above: CALCULATIONS OF LEONIDES MATED GFR ARE PERFORMED USING THE 2020 CKD-EPI STUDY REFIT EQUATION WITHOUT THE RACE VARIABLE FOR THE IDMS-TRACEABLE CREATININE METHODS.https://jasn.asnjournals.org/content//A SN.3481027623 Complete Blood Count + Diffe rentialon 10-03-2022 Basophils/100 WBC (Bld) 0.6 % 0.0 - 2.0 [facility] Work Phone: Erythrocyte distribution width (RBC) [Ratio] 14.1 % See Below [facility] Work Phone: Comment on above: Reference Range: 11. 5 - 14.5 Hematocrit (Bld) [Volume fraction] 41.7 % See Below [facility] Work Phone: Comment on above: Reference Range: 41. 0 - 52.0 Hemoglobin (Bld) [Mass/Vol] 13.6 g/dL See Below [facility] [employer] [facility] Work Phone: Comment on above: Reference Range: 13. 5 - 17.5 Lymphocytes/100 WBC (Bld) 8.5 % See Below [facility] Work Phone: Comment on above: Reference Range: 13. 0 - 44.0 MCHC (RBC) [Mass/Vol] 32.6 g/dL See Below [facility] Work Phone: Comment on above: Reference Range: 32. 0 - 36.0 MCV (RBC) [Entitic vol] 101 fL above high threshold 80 - 100 [facility] [employer] [facility] Work Phone: Monocytes/100 WBC (Bld) 8.5 % 2.0 - 10.0 [facility] Work Phone: Neutrophils/100 WBC (Bld) 79.6 % See Below [facility] Work Phone: Comment on above: Reference Range: 40. 0 - 80.0 Platelets (Bld) [#/Vol] 249 10*3/uL 150 - 450 [facility] Work Phone: RBC (Bld) [#/Vol] 4.15 {x10E12/L} below low threshold See Below [facility] [employer] [facility] Work Phone: Comment on above: Reference Range: 4.5 0 - 5.90 WBC (Bld) [#/Vol] 9.7 10*3/uL 4.4 - 11.3 [facility] Work Phone: Complete Blood Count + Differential 0.06 {x10E9/L} See Below [facility] Work Phone: Comment on above: Reference Range: 0.0 0 - 0.10 Complete Blood Count + Differential 0.21 {x10E9/L} See Below [facility] [employer] [facility] Work Phone: Comment on above: Reference Range: 0.0 0 - 0.40 Complete Blood Count + Differential 0.83 {x10E9/L} See Below [facility] Work Phone: Comment on above: Reference Range: 0.0 5 - 0.80 Reference Range: 0.8 0 - 3.00 Complete Blood Count + Differential 7.72 {x10E9/L} above high threshold See Below [facility] [employer] [facility] Work Phone: Comment on above: Reference Range: 1.6 0 - 5.50 Percent differential counts (%) should be interpreted in the context of the absolute cell counts (cells/L). Complete Blood Count + Differential 2.2 % 0.0 - 6.0 [facility] Work Phone: Complete Blood Count + Differential 0.6 % 0.0 - 0.9 [facility] [employer] [facility] Work Phone: Comment on above: Immature Granulocyte Count (IG) includes promyelocytes, myelocytes and metamyelocytes but does not include bands. Percent differential counts (%) should be interpreted in the context of the absolute cell counts (cells/L). Laboratory - Chemistry and C hemistry - challengeon 10-03-2022 Albumin BCP dye [Mass/Vol] 3.8 g/dL 3.4 - 5.0 [facility] Work Phone: ALP [Catalytic activity/Vol] 92 U/L 33 - 136 [facility] [employer] [facility] Work Phone: ALT With P-5'-P [Catalytic activity/Vol] 14 U/L 10 - 52 [facility] [employer] [facility] Work Phone: Comment on above: Patients treated wit h Sulfasalazine may generate falsely decreased results for ALT. Anion gap [Moles/Vol] 10 mmol/L 10 - 20 [facility] Work Phone: AST With P-5'-P [Catalytic activity/Vol] 15 U/L 9 - 39 [facility] Work Phone: Bilirubin [Mass/Vol] 0.6 mg/dL 0.0 - 1.2 [facility] Work Phone: Calcium [Mass/Vol] 8.5 mg/dL below low threshold 8.6 - 10.3 [facility] Work Phone: Chloride [Moles/Vol] 106 mmol/L 98 - 107 [facility] [employer] [facility] Work Phone: CO2 [Moles/Vol] 27 mmol/L 21 - 32 [facility] l [facility] Work Phone: Creatinine [Mass/Vol] 0.91 mg/dL See Below [facility] Work Phone: Comment on above: Reference Range: 0.5 0 - 1.30 Glucose [Mass/Vol] 96 mg/dL 74 - 99 [facility] ical [employer] [facility] Work Phone: Potassium [Moles/Vol] 4.1 mmol/L 3.5 - 5.3 - [employer] [facility] Work Phone: Protein [Mass/Vol] 5.8 g/dL below low threshold 6.4 - 8.2 [employer] [facility] Work Phone: Sodium [Moles/Vol] 139 mmol/L 136 - 145 [employer] [facility] Work Phone: Urea nitrogen [Mass/Vol] 21 mg/dL 6 - 23 [employer] [facility] Work Phone: No Panel Informationon 10-03 82 {mL/min/1.73m2} >90 [employer] [facility] Work Phone: Comment on above: CALCULATIONS OF LEONIDES MATED GFR ARE PERFORMED USING THE 2020 CKD-EPI STUDY REFIT EQUATION WITHOUT THE RACE VARIABLE FOR THE IDMS-TRACEABLE CREATININE METHODS.https://jasn.asnjournals.org/content/early//A SN.9979367958 CHEST 2 VIEW PA AND LATon CHEST 2 VIEW PA AND LAT STUDY: Chest Radiographs; 09/23/2022 9:39 AM INDICATION: Cough for two weeks status post COVID 09/01. COMPARISON: Chest, single portable view obtained on 04/11/2018 at 08:52:00 hours. ACCESSION NUMBER(S): [id number] ORDERING CLINICIAN: HEIKE ADAMS CNP TECHNIQUE: Frontal [...] MD Electronically signed by: RUSSELL COLEMAN MD [facility] Provider Note - ED v3on 12-0 Provider Note - ED v3 Provider Note: [...] SIGNS: T PRBP SpO2O2(LPM) %FiO2 Method 23-Sep-2022 08:31:[id number]/ 85 96 MDM MDM/ED COURSE: Discussed Findings [...] ill patient: no Electronic Signatures: Heike Adams (COLLECTIONS CLERK-STEEL HANDLER) (Signed 23-Sep-2022 10:09) Authored: ED Notes, HPI, PMH, ROS, PE, Results/Vital Signs, MDM/ED Course, Clinical Impression, Attestation, Chart Review, Scores Last Updated: 23-Sep-2022 10:09 by Daniella (more content not included)... Normal [facility] Tobacco Screening.on Fall risk assessment a) No falls within the last year [facility] [address] Work Phone: Tobacco use status CPHS b) No [facility] [address] Work Phone: IO UA (automated w/o microsc opy)on 05-17-2022 Protein (U) [Mass/Vol] Negative [facility]- [address] Work Phone: IO UA (automated w/o microscopy) Negative -Cardiology- [address] Work Phone: IO UA (automated w/o microscopy) Normal (0.2-1.0 mg/dl) [facility] Work Phone: IO UA (automated w/o microscopy) 5.0 1 -[facility]iology[address] Work Phone: IO UA (automated w/o microscopy) 1.020 1 [facility] Work Phone: IO UA (automated w/o microscopy) Clear [facility] Work Phone: IO UA (automated w/o microscopy) Yellow [facility]- [address] Work Phone: Tobacco Screening.on Adult depression screening assessment No -Cardiolo gy- [address] Work Phone: Fall risk assessment a) No falls within the last year [facility]- [address] Work Phone: Tobacco use status [facility] b) No [facility]- [address] Work Phone: Tobacco Screening.on 022 Adult depression screening assessment No [facility] [employer] [facility] Work Phone: Fall risk assessment a) No falls within the last year [facility] [employer] [facility] Work Phone: Tobacco use status [facility] b) No [facility] Work Phone: Complete Blood Count + Diffe [place] 04-21-2022 Basophils/100 WBC (Bld) 1.0 % 0.0 - 2.0 [employer] [facility] Work Phone: Erythrocyte distribution width (RBC) [Ratio] 14.3 % See Below [employer] [facility] Work Phone: Comment on above: Reference Range: 11. 5 - 14.5 Hematocrit (Bld) [Volume fraction] 38.2 % below low threshold See Below [employer] [facility] Work Phone: Comment on above: Reference Range: 41. 0 - 52.0 Hemoglobin (Bld) [Mass/Vol] 12.9 g/dL below low threshold See Below [employer] [facility] Work Phone: Comment on above: Reference Range: 13. 5 - 17.5 Lymphocytes/100 WBC (Bld) 19.7 % See Below [employer] [facility] Work Phone: Comment on above: Reference Range: 13. 0 - 44.0 MCHC (RBC) [Mass/Vol] 33.9 g/dL See Below [employer] [facility] Work Phone: Comment on above: Reference Range: 32. 0 - 36.0 MCV (RBC) [Entitic vol] 99 fL 80 - 100 [facility] Work Phone: Monocytes/100 WBC (Bld) 7.8 % 2.0 - 10.0 [facility] Work Phone: Neutrophils/100 WBC (Bld) 65.9 % See Below [facility] Work Phone: Comment on above: Reference Range: 40. 0 - 80.0 Platelets (Bld) [#/Vol] 251 10*3/uL 150 - 450 [facility] Work Phone: RBC (Bld) [#/Vol] 3.87 {x10E12/L} below low threshold See Below [facility] Work Phone: Comment on above: Reference Range: 4.5 0 - 5.90 WBC (Bld) [#/Vol] 7.0 10*3/uL 4.4 - 11.3 [facility] Work Phone: Complete Blood Count + Differential 0.10 {x10E9/L} See Below [facility] Work Phone: Comment on above: Reference Range: 0.0 0 - 0.10 Complete Blood Count + Differential 0.40 {x10E9/L} See Below [facility] Work Phone: Comment on above: Reference Range: 0.0 0 - 0.40 Complete Blood Count + Differential 0.60 {x10E9/L} See Below [facility] Work Phone: Comment on above: Reference Range: 0.0 5 - 0.80 Complete Blood Count + Differential 1.40 {x10E9/L} See Below [facility] Work Phone: Comment on above: Reference Range: 0.8 0 - 3.00 Complete Blood Count + Differential 4.60 {x10E9/L} See Below [facility] Work Phone: Comment on above: Reference Range: 1.6 0 - 5.50 Percent differential counts (%) should be interpreted in the context of the absolute cell counts (cells/L). Complete Blood Count + Differential 5.6 % 0.0 - 6.0 [facility] Work Phone: Complete Blood Count + Differential 0.2 {/100_WBC} -[facility] Work Phone: Laboratory - Chemistry and C hemistry - challengeon 04-21-2022 Albumin BCP dye [Mass/Vol] 3.8 g/dL 3.4 - 5.0 -[facility] Work Phone: ALP [Catalytic activity/Vol] 71 U/L 33 - 136 -[facility] Work Phone: ALT With P-5'-P [Catalytic activity/Vol] 13 U/L 10 - 52 -[facility] Work Phone: Comment on above: Patients treated wit h Sulfasalazine may generate falsely decreased results for ALT. Anion gap [Moles/Vol] 10 mmol/L 10 - 20 - [facility] Work Phone: AST With P-5'-P [Catalytic activity/Vol] 16 U/L 9 - 39 -Medical [facility] Work Phone: Bilirubin [Mass/Vol] 0.8 mg/dL 0.0 - 1.2 [facility] edical [facility] Work Phone: Calcium [Mass/Vol] 8.5 mg/dL below low threshold 8.6 - 10.3 [facility] Work Phone: Chloride [Moles/Vol] 110 mmol/L above high threshold 98 - 107 -Medical [facility] Work Phone: CO2 [Moles/Vol] 25 mmol/L 21 - 32 [facility] l [facility] Work Phone: Creatinine [Mass/Vol] 0.91 mg/dL See Below [facility] Work Phone: Comment on above: Reference Range: 0.5 0 - 1.30 Glucose [Mass/Vol] 87 mg/dL 74 - 99 -[facility] ical [facility] Work Phone: Potassium [Moles/Vol] 4.1 mmol/L 3.5 - 5.3 - [facility] Work Phone: Protein [Mass/Vol] 5.5 g/dL below low threshold 6.4 - 8.2 [facility] Work Phone: Sodium [Moles/Vol] 141 mmol/L 136 - 145 -[facility] Work Phone: Urea nitrogen [Mass/Vol] 29 mg/dL above high threshold 6 - 23 [facility] Work Phone: Lipid Panelon 04-21-2022 Cholesterol [Mass/Vol] 127 mg/dL 0 - 199 [facility] [employer] [facility] Work Phone: Comment on above: . AGE [...] dosing. Cholesterol in HDL [Mass/Vol] 42.0 mg/dL [facility] Work Phone: Comment on above: . AGE VERY LOW LOW N ORMAL HIGH 0-19 Y < 35 < 40 40-45 ---- 20-24 Y ---- < 40 >45 ---- >24 Y ---- < 40 40-60 >60. Cholesterol in LDL [Mass/Vol] 73 mg/dL 0 - 99 -[employer] [facility] Work Phone: Comment on above: . NEAR BORD AGE CHERYL RABLE OPTIMAL HIGH HIGH VERY HIGH 0-19 Y 0 - 109 --- 110-129 >/= 130 ---- 20-24 Y 0 - 119 --- 120-159 >/= 160 ---- >24 Y 0 - 99 100-129 130-159 160-189 >/=190. Cholesterol.total/Chol esterol in HDL [Mass ratio] 3.0 {ratio} [employer] [facility] Work Phone: Comment on above: REF VALUESDESIRABLE < 3.4HIGH RISK > 5.0 Triglyceride [Mass/Vol] 60 mg/dL 0 - 149 [employer] [facility] Work Phone: Comment on above: . AGE [...] Lipid Panel 12 mg/dL 0 - 40 [employer] [facility] Work Phone: No Panel Informationon 04-21 82 {mL/min/1.73m2} >90 [facility] Work Phone: Comment on above: CALCULATIONS OF LEONIDES MATED GFR ARE PERFORMED USING THE 2020 CKD-EPI STUDY REFIT EQUATION WITHOUT THE RACE VARIABLE FOR THE IDMS-TRACEABLE CREATININE METHODS.https://jasn.asnjournals.org/content//A SN.3149939037 Prostate Spec.Ag, Screenon 0 04-21-2022 Prostate specific Ag [Mass/Vol] 0.29 ng/mL See Below [employer] [facility] Work Phone: Comment on above: Reference Range: 0.0 0 - 4.00The FDA requires that the method used for PSA assay be reported to the physician. Values obtained with different assay methods must not be used interchangeably. [facility]was [facility] using the Access [employer]iva Digital Med[employer]ch PSA assay is a two-site immunoenzymatic sandwich assay. The assay is approved for measurement of prostate-specific antigen (PSA)in serum and may be used in conjunction with a digital rectal examination in men 50 years and older as an aid in detection of prostate cancer.8-Vmkes-clfkvhwwm inhibitors (e.g. Proscar, Finasteride, Avodart, Dutasteride and Suzy) for the treatment of BPH have been shown to lower PSA levels by an average of 50% after 6 months of treatment. Vitamin B12, Serumon 022 Cobalamin (Vitamin B12) [Mass/Vol] 686 pg/mL 211 - 911 [employer] [facility] Work Phone: Complete Blood Count + Diffe rentialon 03-31-2022 Basophils/100 WBC (Bld) 0.9 % 0.0 - 2.0 [facility] Work Phone: Erythrocyte distribution width (RBC) [Ratio] 14.0 % See Below [employer] [facility] Work Phone: Comment on above: Reference Range: 11. 5 - 14.5 Hematocrit (Bld) [Volume fraction] 39.8 % below low threshold See Below [employer] [facility] Work Phone: Comment on above: Reference Range: 41. 0 - 52.0 Hemoglobin (Bld) [Mass/Vol] 13.6 g/dL See Below [employer] [facility] Work Phone: Comment on above: Reference Range: 13. 5 - 17.5 Lymphocytes/100 WBC (Bld) 15.8 % See Below [employer] [facility] Work Phone: Comment on above: Reference Range: 13. 0 - 44.0 MCHC (RBC) [Mass/Vol] 34.3 g/dL See Below [employer] [facility] Work Phone: Comment on above: Reference Range: 32. 0 - 36.0 MCV (RBC) [Entitic vol] 98 fL 80 - 100 [employer] [facility] Work Phone: Monocytes/100 WBC (Bld) 8.8 % 2.0 - 10.0 -[facility] Work Phone: Neutrophils/100 WBC (Bld) 71.4 % See Below [facility] Work Phone: Comment on above: Reference Range: 40. 0 - 80.0 Platelets (Bld) [#/Vol] 266 10*3/uL 150 - 450 [facility] Work Phone: RBC (Bld) [#/Vol] 4.05 {x10E12/L} below low threshold See Below [facility] Work Phone: Comment on above: Reference Range: 4.5 0 - 5.90 WBC (Bld) [#/Vol] 7.3 10*3/uL 4.4 - 11.3 [facility] Work Phone: Complete Blood Count + Differential 0.10 {x10E9/L} See Below [facility] Work Phone: Comment on above: Reference Range: 0.0 0 - 0.10 Complete Blood Count + Differential 0.20 {x10E9/L} See Below [facility] Work Phone: Comment on above: Reference Range: 0.0 0 - 0.40 Complete Blood Count + Differential 0.60 {x10E9/L} See Below [facility] Work Phone: Comment on above: Reference Range: 0.0 5 - 0.80 Complete Blood Count + Differential 1.20 {x10E9/L} See Below [facility] Work Phone: Comment on above: Reference Range: 0.8 0 - 3.00 Complete Blood Count + Differential 5.20 {x10E9/L} See Below [facility] Work Phone: Comment on above: Reference Range: 1.6 0 - 5.50 Percent differential counts (%) should be interpreted in the context of the absolute cell counts (cells/L). Complete Blood Count + Differential 3.1 % 0.0 - 6.0 [facility] Work Phone: Laboratory - Chemistry and C hemistry - challengeon 03-31-2022 Albumin BCP dye [Mass/Vol] 4.1 g/dL 3.4 - 5.0 [facility] Work Phone: ALP [Catalytic activity/Vol] 80 U/L 33 - 136 [facility] [employer] [facility] Work Phone: ALT With P-5'-P [Catalytic activity/Vol] 13 U/L 10 - 52 [facility] [employer] [facility] Work Phone: Comment on above: Patients treated wit h Sulfasalazine may generate falsely decreased results for ALT. Anion gap [Moles/Vol] 10 mmol/L 10 - 20 [facility] [employer] [facility] Work Phone: AST With P-5'-P [Catalytic activity/Vol] 16 U/L 9 - 39 [facility] Work Phone: Bilirubin [Mass/Vol] 0.8 mg/dL 0.0 - 1.2 [facility] Work Phone: Calcium [Mass/Vol] 8.8 mg/dL 8.6 - 10.3 [facility] [employer] [facility] Work Phone: Chloride [Moles/Vol] 105 mmol/L 98 - 107 [employer] [facility] Work Phone: CO2 [Moles/Vol] 27 mmol/L 21 - 32 [facility] [employer] [facility] Work Phone: Creatinine [Mass/Vol] 0.92 mg/dL See Below [facility] Work Phone: Comment on above: Reference Range: 0.5 0 - 1.30 Glucose [Mass/Vol] 87 mg/dL 74 - 99 [facility] Work Phone: Potassium [Moles/Vol] 4.1 mmol/L 3.5 - 5.3 [facility] Work Phone: Protein [Mass/Vol] 5.9 g/dL below low threshold 6.4 - 8.2 [employer] [facility] Work Phone: Sodium [Moles/Vol] 138 mmol/L 136 - 145 [employer] [facility] Work Phone: Urea nitrogen [Mass/Vol] 23 mg/dL 6 - 23 [employer] [facility] Work Phone: No Panel Informationon 03-31 81 {mL/min/1.73m2} >90 [employer] [facility] Work Phone: Comment on above: CALCULATIONS OF LEONIDES MATED GFR ARE PERFORMED USING THE 2020 CKD-EPI STUDY REFIT EQUATION WITHOUT THE RACE VARIABLE FOR THE IDMS-TRACEABLE CREATININE METHODS.https://jasn.asnjournals.org/content/early/A SN.7151165966 Tobacco Screening.on Adult depression screening assessment No [facility] Work Phone: Fall risk assessment a) No falls within the last year [facility] [facility] Work Phone: Tobacco use status CPHS b) No [employer] [employer] [facility] Work Phone: Radiologyon 11-17-2021 XR Femur 2 Views Normal -Pain Management-Doug booker Work Phone: Tobacco Screening.on 022 Fall risk assessment a) No falls within the last year [facility] [employer] [facility] Work Phone: Tobacco use status CPHS b) No [employer] [facility] Work Phone: MRI L Spine without Contrast on 10-06-2021 MR Lumbar spine WO contrast Normal [facility] [facility] Work Phone: Complete Blood Count + Gina lopez 10-04-2021 Basophils/100 WBC (Bld) 0.6 % 0.0 - 2.0 -[facility] Work Phone: Erythrocyte distribution width (RBC) [Ratio] 13.9 % See Below [facility] Work Phone: Comment on above: Reference Range: 11. 5 - 14.5 Hematocrit (Bld) [Volume fraction] 40.7 % below low threshold See Below -[employer] [facility] Work Phone: Comment on above: Reference Range: 41. 0 - 52.0 Hemoglobin (Bld) [Mass/Vol] 13.5 g/dL See Below [facility] Work Phone: Comment on above: Reference Range: 13. 5 - 17.5 Lymphocytes/100 WBC (Bld) 12.1 % See Below [facility] Work Phone: Comment on above: Reference Range: 13. 0 - 44.0 MCHC (RBC) [Mass/Vol] 33.2 g/dL See Below [facility] Work Phone: Comment on above: Reference Range: 32. 0 - 36.0 MCV (RBC) [Entitic vol] 101 fL above high threshold 80 - 100 [facility] Work Phone: Monocytes/100 WBC (Bld) 10.2 % 2.0 - 10.0 [facility] Work Phone: Neutrophils/100 WBC (Bld) 75.1 % See Below [facility] Work Phone: Comment on above: Reference Range: 40. 0 - 80.0 Platelets (Bld) [#/Vol] 251 10*3/uL 150 - 450 [facility] Work Phone: RBC (Bld) [#/Vol] 4.04 {x10E12/L} below low threshold See Below [facility] Work Phone: Comment on above: Reference Range: 4.5 0 - 5.90 WBC (Bld) [#/Vol] 7.1 10*3/uL 4.4 - 11.3 [facility] Work Phone: Complete Blood Count + Differential 0.00 {x10E9/L} See Below [facility] [place] [facility] Work Phone: Comment on above: Reference Range: 0.0 0 - 0.10 Complete Blood Count + Differential 0.10 {x10E9/L} See Below [facility] [place] [facility] Work Phone: Comment on above: Reference Range: 0.0 0 - 0.40 Complete Blood Count + Differential 0.70 {x10E9/L} See Below [facility] Work Phone: Comment on above: Reference Range: 0.0 5 - 0.80 Complete Blood Count + Differential 0.90 {x10E9/L} See Below [facility] [place] [facility] Work Phone: Comment on above: Reference Range: 0.8 0 - 3.00 Complete Blood Count + Differential 5.30 {x10E9/L} See Below [facility] [place] [facility] Work Phone: Comment on above: Reference Range: 1.6 0 - 5.50 Percent differential counts (%) should be interpreted in the context of the absolute cell counts (cells/L). Complete Blood Count + Differential 2.0 % 0.0 - 6.0 [facility] [place] [facility] Work Phone: Complete Blood Count + Differential 0.1 {/100_WBC} [facility] [place] [facility] Work Phone: Laboratory - Chemistry and C hemistry - challengeon 10-04-2021 Albumin BCP dye [Mass/Vol] 3.8 g/dL 3.4 - 5.0 [facility] [place] [facility] Work Phone: ALP [Catalytic activity/Vol] 63 U/L 33 - 136 [facility] Work Phone: ALT With P-5'-P [Catalytic activity/Vol] 16 U/L 10 - 52 [facility] Work Phone: Comment on above: Patients treated wit h Sulfasalazine may generate falsely decreased results for ALT. Anion gap [Moles/Vol] 8 mmol/L below low threshold 10 - 20 [facility] Work Phone: AST With P-5'-P [Catalytic activity/Vol] 19 U/L 9 - 39 [facility] Work Phone: Bilirubin [Mass/Vol] 0.8 mg/dL 0.0 - 1.2 [facility] Work Phone: Calcium [Mass/Vol] 8.6 mg/dL 8.6 - 10.3 [facility] Work Phone: Chloride [Moles/Vol] 106 mmol/L 98 - 107 [facility] Work Phone: CO2 [Moles/Vol] 28 mmol/L 21 - 32 [facility] Work Phone: Creatinine [Mass/Vol] 0.89 mg/dL See Below [facility] Work Phone: Comment on above: Reference Range: 0.5 0 - 1.30 Glucose [Mass/Vol] 84 mg/dL 74 - 99 -[facility] Work Phone: Potassium [Moles/Vol] 3.8 mmol/L 3.5 - 5.3 - [facility] Work Phone: Protein [Mass/Vol] 5.7 g/dL below low threshold 6.4 - 8.2 [facility] Work Phone: Sodium [Moles/Vol] 138 mmol/L 136 - 145 [facility] Work Phone: Urea nitrogen [Mass/Vol] 23 mg/dL 6 - 23 [facility] Work Phone: No Panel Informationon 10-04 >60 >60 [facility] Work Phone: Comment on above: CALCULATIONS OF LEONIDES MATED GFR ARE PERFORMED USING THE MDRD STUDY EQUATION FOR THE IDMS-TRACEABLE CREATININE METHODS. CLIN CHEM 2007;53:766-72 Tobacco Screening.on Fall risk assessment a) No falls within the last year [facility] Work Phone: Tobacco use status CP b) No [facility] Work Phone: IO UA (automated w/o microsc opy)on 05-18-2021 Protein (U) [Mass/Vol] Negative [employer] [facility] Work Phone: IO UA (automated w/o microscopy) Negative BN[facility] Work Phone: IO UA (automated w/o microscopy) Normal (0.2-1.0 mg/dl) NA-Xgqaqnj[facility]Xtu [facility] Work Phone: IO UA (automated w/o microscopy) 5.5 1 FA-Nbqavjs[facility]Jts [facility] Work Phone: IO UA (automated w/o microscopy) 1.030 1 HB-Vkpkkyd[facility]Muy [facility] Work Phone: IO UA (automated w/o microscopy) Clear AN-Dqkorsm-Exy [facility] Work Phone: IO UA (automated w/o microscopy) Yellow ZF-Tluomdj[facility]Tep [facility] Work Phone: Tobacco Screening.on 021 Fall risk assessment a) No falls within the last year KC[facility]Siqwkpn[facility]mk [facility] Work Phone: Tobacco use status CP b) No MD[facility]Spffenf[facility]Bdc [facility] Work Phone: LDL, Direct, Serumon 021 Cholesterol in LDL [Mass/Vol] 100 mg/dL 0 - 129 [facility] Work Phone: Comment on above: Elevated levels [...] dye [Mass/Vol] 3.8 g/dL 3.4 - 5.0 [facility] [employer] [facility] Work Phone: ALP [Catalytic activity/Vol] 61 U/L 33 - 136 [facility] Work Phone: ALT With P-5'-P [Catalytic activity/Vol] 19 U/L 10 - 52 [employer] [facility] Work Phone: Comment on above: Patients treated wit h Sulfasalazine may generate falsely decreased results for ALT. Anion gap [Moles/Vol] 11 mmol/L 10 - 20 - [employer] [facility] Work Phone: AST With P-5'-P [Catalytic activity/Vol] 19 U/L 9 - 39 [employer] [facility] Work Phone: Bilirubin [Mass/Vol] 0.9 mg/dL 0.0 - 1.2 [facility] [employer] [facility] Work Phone: Calcium [Mass/Vol] 8.3 mg/dL below low threshold 8.6 - 10.3 [facility] Work Phone: Chloride [Moles/Vol] 109 mmol/L above high threshold 98 - 107 [facility] Work Phone: CO2 [Moles/Vol] 25 mmol/L 21 - 32 -Medica l [employer] [facility] Work Phone: Creatinine [Mass/Vol] 0.93 mg/dL See Below [employer] [facility] Work Phone: Comment on above: Reference Range: 0.5 0 - 1.30 Glucose [Mass/Vol] 90 mg/dL 74 - 99 [facility] [place] [employer] [facility] Work Phone: Potassium [Moles/Vol] 3.9 mmol/L 3.5 - 5.3 [facility] Work Phone: Protein [Mass/Vol] 5.5 g/dL below low threshold 6.4 - 8.2 [facility] [place] [facility] Work Phone: Sodium [Moles/Vol] 141 mmol/L 136 - 145 [facility] [place] Work Phone: Urea nitrogen [Mass/Vol] 26 mg/dL above high threshold 6 - 23 [facility] [place] [facility] Work Phone: No Panel Informationon 05-11 >60 >60 [facility] [place] [facility] Work Phone: Comment on above: CALCULATIONS OF LEONIDES MATED GFR ARE PERFORMED USING THE MDRD STUDY EQUATION FOR THE IDMS-TRACEABLE CREATININE METHODS. CLIN CHEM 2007;53:766-72 Prostate Spec.Ag, Screenon 0 05-11-2021 Prostate specific Ag [Mass/Vol] 0.25 ng/mL See Below [facility] [place] Work Phone: Comment on above: Reference Range: 0.0 0 - 4.00The FDA requires that the method used for PSA assay be reported to the physician. Values obtained with different assay methods must not be used interchangeably. [facility]was [facility] using the 8handsbritech PSA assay is a two-site immunoenzymatic sandwich assay. The assay is approved for measurement of prostate-specific antigen (PSA)in serum and may be used in conjunction with a digital rectal examination in men 50 years and older as an aid in detection of prostate cancer.0-Rbkhp-nyzevbamm inhibitors (e.g. Proscar, Finasteride, Avodart, Dutasteride and Suzy) for the treatment of BPH have been shown to lower PSA levels by an average of 50% after 6 months of treatment. Ultrasound Abdomen Aortaon 0 05-11-2021 Ultrasound Abdomen Aorta Normal [facility] Work Phone: Ultrasound Abdomen Aorta Please click on the link to view the study images Normal [employer] [facility] Work Phone: ECG 12-LEADOrdered By: Heather Paredes on 05-09-2021 Atrial Rate [facility] P [place] [facility] P-R Interval [facility] Q-T Interval [facility] Q-T Interval (corrected) [facility] QRS Duration [facility] QTC Calculation (Bezet) [facility] R [place] [facility] T [place] [facility] Ventricular Rate [facility] Tobacco Screening.on 021 Fall risk assessment a) No falls within the last year [employer] [facility] Work Phone: Tobacco use status CPHS b) No [facility] Work Phone: Complete Blood Count + Diffe rentialon 04-19-2021 Basophils/100 WBC (Bld) 0.4 % 0.0 - 2.0 [employer] [facility] Work Phone: Erythrocyte distribution width (RBC) [Ratio] 13.4 % See Below [employer] [facility] Work Phone: Comment on above: Reference Range: 11. 5 - 14.5 Hematocrit (Bld) [Volume fraction] 41.4 % See Below [employer] [facility] Work Phone: Comment on above: Reference Range: 41. 0 - 52.0 Hemoglobin (Bld) [Mass/Vol] 13.6 g/dL See Below [employer] [facility] Work Phone: Comment on above: Reference Range: 13. 5 - 17.5 Lymphocytes/100 WBC (Bld) 11.6 % See Below [employer] [facility] Work Phone: Comment on above: Reference Range: 13. 0 - 44.0 MCHC (RBC) [Mass/Vol] 32.9 g/dL See Below [employer] [facility] Work Phone: Comment on above: Reference Range: 32. 0 - 36.0 MCV (RBC) [Entitic vol] 101 fL above high threshold 80 - 100 [employer] [facility] Work Phone: Monocytes/100 WBC (Bld) 7.3 % 2.0 - 10.0 [facility] Work Phone: Neutrophils/100 WBC (Bld) 78.9 % See Below [facility] Work Phone: Comment on above: Reference Range: 40. 0 - 80.0 Platelets (Bld) [#/Vol] 214 10*3/uL 150 - 450 [facility] Work Phone: RBC (Bld) [#/Vol] 4.10 {x10E12/L} below low threshold See Below [facility] Work Phone: Comment on above: Reference Range: 4.5 0 - 5.90 WBC (Bld) [#/Vol] 7.2 10*3/uL 4.4 - 11.3 [facility] Work Phone: Complete Blood Count + Differential 0.00 {x10E9/L} See Below [facility] Work Phone: Comment on above: Reference Range: 0.0 0 - 0.10 Complete Blood Count + Differential 0.10 {x10E9/L} See Below [facility] Work Phone: Comment on above: Reference Range: 0.0 0 - 0.40 Complete Blood Count + Differential 0.50 {x10E9/L} See Below [facility] Work Phone: Comment on above: Reference Range: 0.0 5 - 0.80 Complete Blood Count + Differential 0.80 {x10E9/L} See Below [facility] Work Phone: Comment on above: Reference Range: 0.8 0 - 3.00 Complete Blood Count + Differential 5.70 {x10E9/L} above high threshold See Below [facility] Work Phone: Comment on above: Reference Range: 1.6 0 - 5.50 Percent differential counts (%) should be interpreted in the context of the absolute cell counts (cells/L). Complete Blood Count + Differential 1.8 % 0.0 - 6.0 [facility] [place] [facility] Work Phone: Complete Blood Count + Differential 0.2 {/100_WBC} [facility] Work Phone: Laboratory - Chemistry and C hemistry - challengeon 04-19-2021 Albumin BCP dye [Mass/Vol] 3.8 g/dL 3.4 - 5.0 [facility] Work Phone: ALP [Catalytic activity/Vol] 64 U/L 33 - 136 [facility] Work Phone: ALT With P-5'-P [Catalytic activity/Vol] 23 U/L 10 - 52 [facility] Work Phone: Comment on above: Patients treated wit h Sulfasalazine may generate falsely decreased results for ALT. Anion gap [Moles/Vol] 10 mmol/L 10 - 20 [facility] Work Phone: AST With P-5'-P [Catalytic activity/Vol] 21 U/L 9 - 39 [facility] Work Phone: Bilirubin [Mass/Vol] 0.7 mg/dL 0.0 - 1.2 [facility] [employer] [facility] Work Phone: Calcium [Mass/Vol] 8.6 mg/dL 8.6 - 10.3 [facility] ical [employer] [facility] Work Phone: Chloride [Moles/Vol] 106 mmol/L 98 - 107 [facility] edical [employer] [facility] Work Phone: CO2 [Moles/Vol] 25 mmol/L 21 - 32 [facility] l [employer] [facility] Work Phone: Creatinine [Mass/Vol] 0.94 mg/dL See Below [facility] Work Phone: Comment on above: Reference Range: 0.5 0 - 1.30 Glucose [Mass/Vol] 152 mg/dL above high threshold 74 - 99 -[facility] Work Phone: Potassium [Moles/Vol] 3.8 mmol/L 3.5 - 5.3 - [facility] Work Phone: Protein [Mass/Vol] 5.6 g/dL below low threshold 6.4 - 8.2 -[facility] Work Phone: Sodium [Moles/Vol] 137 mmol/L 136 - 145 -[facility] [place] [facility] Work Phone: Urea nitrogen [Mass/Vol] 22 mg/dL 6 - 23 -[facility] Work Phone: No Panel Informationon 04-19 >60 >60 -[facility] Work Phone: Comment on above: CALCULATIONS OF LEONIDES MATED GFR ARE PERFORMED USING THE MDRD STUDY EQUATION FOR THE IDMS-TRACEABLE CREATININE METHODS. CLIN CHEM 2007;53:766-72 Laboratory - Chemistry and C hemistry - challengeon 04-13-2021 Albumin BCP dye [Mass/Vol] 3.8 g/dL 3.4 - 5.0 -[facility] Work Phone: ALP [Catalytic activity/Vol] 68 U/L 33 - 136 [facility] Work Phone: ALT With P-5'-P [Catalytic activity/Vol] 27 U/L 10 - 52 [facility] Work Phone: Comment on above: Patients treated wit h Sulfasalazine may generate falsely decreased results for ALT. Anion gap [Moles/Vol] 9 mmol/L below low threshold 10 - 20 -[facility] Work Phone: AST With P-5'-P [Catalytic activity/Vol] 23 U/L 9 - 39 [facility] Work Phone: Bilirubin [Mass/Vol] 0.8 mg/dL 0.0 - 1.2 [employer] [facility] Work Phone: Calcium [Mass/Vol] 8.6 mg/dL 8.6 - 10.3 [employer] [facility] Work Phone: Chloride [Moles/Vol] 107 mmol/L 98 - 107 [employer] [facility] Work Phone: CO2 [Moles/Vol] 27 mmol/L 21 - 32 [employer] [facility] Work Phone: Creatinine [Mass/Vol] 0.92 mg/dL See Below [employer] [facility] Work Phone: Comment on above: Reference Range: 0.5 0 - 1.30 Glucose [Mass/Vol] 88 mg/dL 74 - 99 [employer] [facility] Work Phone: Potassium [Moles/Vol] 4.0 mmol/L 3.5 - 5.3 [employer] [facility] Work Phone: Protein [Mass/Vol] 5.6 g/dL below low threshold 6.4 - 8.2 [facility] Work Phone: Sodium [Moles/Vol] 139 mmol/L 136 - 145 [employer] [facility] Work Phone: Urea nitrogen [Mass/Vol] 29 mg/dL above high threshold 6 - 23 [employer] [facility] Work Phone: Lipid Panelon 04-13-2021 Cholesterol [Mass/Vol] 135 mg/dL 0 - 199 [employer] [facility] Work Phone: Comment on above: . AGE [...] Cholesterol in HDL [Mass/Vol] 37.0 mg/dL Abnormal [facility] Work Phone: Comment on above: . AGE VERY LOW LOW N ORMAL HIGH 0-19 Y < 35 < 40 40-45 ---- 20-24 Y ---- < 40 >45 ---- >24 Y ---- < 40 40-60 >60. Cholesterol in LDL [Mass/Vol] 80 mg/dL 0 - 99 [facility] Work Phone: Comment on above: . NEAR BORD AGE CHERYL RABLE OPTIMAL HIGH HIGH VERY HIGH 0-19 Y 0 - 109 --- 110-129 >/= 130 ---- 20-24 Y 0 - 119 --- 120-159 >/= 160 ---- >24 Y 0 - 99 100-129 130-159 160-189 >/=190. Cholesterol.total/Chol esterol in HDL [Mass ratio] 3.6 {ratio} [facility] Work Phone: Comment on above: REF VALUESDESIRABLE < 3.4HIGH RISK > 5.0 Triglyceride [Mass/Vol] 90 mg/dL 0 - 149 [facility] Work Phone: Comment on above: . AGE [...] Lipid Panel 18 mg/dL 0 - 40 [facility] Work Phone: No Panel Informationon 04-13 >60 >60 [facility] [place] [facility] Work Phone: Comment on above: CALCULATIONS OF LEONIDES MATED GFR ARE PERFORMED USING THE MDRD STUDY EQUATION FOR THE IDMS-TRACEABLE CREATININE METHODS. CLIN CHEM 2007;53:766-72 Complete Blood Count + Diffe rentialon 03-31-2020 Basophils (Bld) [#/Vol] 0.10 {x10E9/L} See Below [facility] Work Phone: Comment on above: Reference Range: 0.0 0 - 0.10 Ordering Provider: Yony Pollack Basophils/100 WBC (Bld) 0.8 % 0.0 - 2.0 [facility] Work Phone: Comment on above: Ordering Provider: Yony Pollack Eosinophils (Bld) [#/Vol] 0.20 {x10E9/L} See Below [facility] [place] [facility] Work Phone: Comment on above: Reference Range: 0.0 0 - 0.40 Ordering Provider: Yony BATES [id number] Eosinophils/100 WBC (Bld) 2.8 % 0.0 - 6.0 [facility] [place] [facility] Work Phone: Comment on above: Ordering Provider: Yony Pollack Erythrocyte distribution width (RBC) [Ratio] 13.5 % See Below [facility] [place] [facility] Work Phone: Comment on above: Reference Range: 11. 5 - 14.5 Ordering Provider: Yony Pollack Hematocrit (Bld) [Volume fraction] 41.2 % See Below [facility] [place] [facility] Work Phone: Comment on above: Reference Range: 41. 0 - 52.0 Ordering Provider: Yony Pollack Hemoglobin (Bld) [Mass/Vol] 13.8 g/dL See Below [facility] Work Phone: Comment on above: Reference Range: 13. 5 - 17.5 Ordering Provider: Yony Pollack Lymphocytes (Bld) [#/Vol] 1.10 {x10E9/L} See Below [facility] Work Phone: Comment on above: Reference Range: 0.8 0 - 3.00 Ordering Provider: Yony Pollack Lymphocytes/100 WBC (Bld) 16.6 % See Below [facility] Work Phone: Comment on above: Reference Range: 13. 0 - 44.0 Ordering Provider: Yony PRICE PAULO [id number] MCHC (RBC) [Mass/Vol] 33.4 g/dL See Below [facility] Work Phone: Comment on above: Reference Range: 32. 0 - 36.0 Ordering Provider: Yony PRICE BATES Ranjeet MCV (RBC) [Entitic vol] 99 fL 80 - 100 [facility] Work Phone: Comment on above: Ordering Provider: Yony Pollack Monocytes (Bld) [#/Vol] 0.50 {x10E9/L} See Below [facility] Work Phone: Comment on above: Reference Range: 0.0 5 - 0.80 Ordering Provider: Yony Pollack Monocytes/100 WBC (Bld) 7.4 % 2.0 - 10.0 [facility] Work Phone: Comment on above: Ordering Provider: Yony Pollack Neutrophils (Bld) [#/Vol] 4.70 {x10E9/L} See Below [facility] Work Phone: Comment on above: Reference Range: 1.6 0 - 5.50 Percent differential counts (%) should be interpreted in the context of the absolute cell counts (cells/L). Ordering Provider: Yony BUENROSTRODER [id number] Neutrophils/100 WBC (Bld) 72.4 % See Below [facility] Work Phone: Comment on above: Reference Range: 40. 0 - 80.0 Ordering Provider: Yony Pollack Platelets (Bld) [#/Vol] 252 {x10E9/L} 150 - 450 [facility] Work Phone: Comment on above: Ordering Provider: Yony Pollack RBC (Bld) [#/Vol] 4.16 {x10E12/L} below low threshold See Below [facility] Work Phone: Comment on above: Reference Range: 4.5 0 - 5.90 Ordering Provider: Yony Pollack WBC (Bld) [#/Vol] 6.5 {x10E9/L} 4.4 - 11.3 [facility] Work Phone: Comment on above: Ordering Provider: Yony Pollack WBC (Bld) [#/Vol] 0.1 {/100_WBC} [facility] Work Phone: Comment on above: Ordering Provider: Yony Pollack Lipid Panelon 03-31-2020 Cholesterol [Mass/Vol] 147 mg/dL 0 - 199 [facility] Work Phone: Comment on above: . AGE [...] Cholesterol in HDL [Mass/Vol] 39.0 mg/dL Abnormal [facility] Work Phone: Comment on above: . AGE VERY LOW LOW N ORMAL HIGH 0-19 Y < 35 < 40 40-45 ---- 20-24 Y ---- < 40 >45 ---- >24 Y ---- < 40 40-60 >60. Cholesterol in LDL [Mass/Vol] 87 mg/dL 0 - 99 [facility] Work Phone: Comment on above: . NEAR BORD AGE CHERYL RABLE OPTIMAL HIGH HIGH VERY HIGH 0-19 Y 0 - 109 --- 110-129 >/= 130 ---- 20-24 Y 0 - 119 --- 120-159 >/= 160 ---- >24 Y 0 - 99 100-129 130-159 160-189 >/=190. Cholesterol.total/Chol esterol in HDL [Mass ratio] 3.8 {ratio} [facility] Work Phone: Comment on above: REF VALUESDESIRABLE < 3.4HIGH RISK > 5.0 Triglyceride [Mass/Vol] 106 mg/dL 0 - 149 [facility] Work Phone: Comment on above: . AGE [...] Lipid Panel 21 mg/dL 0 - 40 [facility] Work Phone: MRSA Screenon 03-31-2020 Staphylococcus sp identified Org specific cx Nom (Unsp spec) PATIENT: FAWN CAMERON LOCATION: [facility]#: [id number] : [birth year] AGE: SEX: M ORDERED BY: [place] BATES: ANTERIOR NARES COLLECTED: 03/31/20 07:10ANTIBIOTICS AT WILL.: RECEIVED : 03/31/20 15:03SITE: R E S U L T S STAPH/MRSA SCREEN FINAL 04/02/20 08:45 NO Staphylococcus aureus ISOLATED. [facility] Work Phone: Comment on above: Ordering Provider: Yony BATES [id number] Metabolic Panelon 03-31-2020 ALP [Catalytic activity/Vol] 67 U/L 33 - 136 [facility] Work Phone: Anion gap [Moles/Vol] 10 mmol/L 10 - 20 [facility] Work Phone: Bilirubin [Mass/Vol] 1.0 mg/dL 0.0 - 1.2 [facility] [employer] [facility] Work Phone: Calcium [Mass/Vol] 8.9 mg/dL 8.6 - 10.3 [facility] [employer] [facility] Work Phone: Chloride [Moles/Vol] 107 mmol/L 98 - 107 [facility] [employer] [facility] Work Phone: CO2 [Moles/Vol] 26 mmol/L 21 - 32 [facility] l [facility] Work Phone: Creatinine [Mass/Vol] 0.89 mg/dL See Below [facility] Medical [facility] Work Phone: Comment on above: Reference Range: 0.5 0 - 1.30 Glucose [Mass/Vol] 92 mg/dL 74 - 99 -[facility] Work Phone: Potassium [Moles/Vol] 3.9 mmol/L 3.5 - 5.3 - [facility] Work Phone: Protein [Mass/Vol] 5.7 g/dL below low threshold 6.4 - 8.2 [facility] Work Phone: Sodium [Moles/Vol] 139 mmol/L 136 - 145 [facility] [employer] [facility] Work Phone: Urea nitrogen [Mass/Vol] 19 mg/dL 6 - 23 [facility] Work Phone: Otheron 03-31-2020 Albumin BCP dye [Mass/Vol] 4.1 g/dL 3.4 - 5.0 [facility] Work Phone: ALT With P-5'-P [Catalytic activity/Vol] 17 U/L 10 - 52 [facility] Work Phone: Comment on above: Patients treated wit h Sulfasalazine may generate falsely decreased results for ALT. AST With P-5'-P [Catalytic activity/Vol] 16 U/L 9 - 39 [facility] Work Phone: >60 >60 [facility] Work Phone: Comment on above: CALCULATIONS OF LEONIDES MATED GFR ARE PERFORMED USING THE MDRD STUDY EQUATION FOR THE IDMS-TRACEABLE CREATININE METHODS. CLIN CHEM 2007;53:766-72 Urinalysison 03-31-2020 Appearance (U) HAZY CLEAR [facility] Work Phone: Comment on above: Ordering Provider: Yony Pollack Color (U) Yellow See Below [facility] Work Phone: Comment on above: Reference Range: STR AW,YELLOW Ordering Provider: Yony BATES 93696 Glucose Ql (U) Negative NEGATIVE [facility] Work Phone: Comment on above: Ordering Provider: Yony BATES 02348 Ketones Ql (U) Negative NEGATIVE [facility] Work Phone: Comment on above: Ordering Provider: Yony BATES 67464 Leukocyte esterase Test strip Ql (U) Negative NEGATIVE [facility] Work Phone: Comment on above: Ordering Provider: Yony BATES 29080 pH (U) 6.0 [pH] 5.0 - 8.0 [facility] Work Phone: Comment on above: Ordering Provider: Yony Pollack Protein (U) [Mass/Vol] Negative NEGATIVE -Medical [employer] [facility] Work Phone: Comment on above: Ordering Provider: Yony Pollack RBC (U) [#/Vol] Negative NEGATIVE -Medica [employer] [facility] Work Phone: Comment on above: Ordering Provider: Yony Pollack Specific gravity (U) [Rel density] 1.018 1 See Below -[employer] [facility] Work Phone: Comment on above: Reference Range: 1.0 05 - 1.035 Ordering Provider: Yony Pollack Urinalysis Negative NEGATIVE [employer] [facility] Work Phone: Comment on above: Ordering Provider: Yony Pollack Urinalysis <2.0 0.0 - 1.9 [employer] [facility] Work Phone: Comment on above: Ordering Provider: Yony Pollack Otheron 03-08-2020 Stress Nuc Stress EF 67 % [facility] Patient Info Name: FAWN CAMERON Age: 84 years : 1935 Gender: Male Ht: 170 cm Wt: 76 kg BSA: 1.90 m2 Exam Date: 03/08/2020 10:00 AM Patient Status: Outpatient Ordering Physician: HEATHER PAREDES Export Specialist: Sherry Damon, RT(N), LEILA, ISABEL, Gregory Damon RT(N), NCT Exam Type: NM MYOCARDIAL PERFUSION MULTI SPECT Study Info Indications - Pre-op, intermediate risk surgery, 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 Camera Used: QMCODES D-SPECT Image Protocol Stress Patient Position: upright [...] Deb Sue MD on 03/08/2020 02:15 PM [facility] Interface, Rad In Heartlab Xper Echopacs - 03/08/2020 3:38 PM EDT Patient Info Name: FAWN CAMERON Age: 84 years : 1935 Gender: Male Ht: 170 cm Wt: 76 kg BSA: 1.90 m2 Exam Date: 03/08/2020 10:00 AM Patient Status: Outpatient Ordering Physician: HEATHER PAREDES Export Specialist: Sherry Damon, RT(N), LEILA, Nelson HALL Eric, RT(N), NCT Exam Type: NM MYOCARDIAL PERFUSION MULTI SPECT Study Info Indications - Pre-op, intermediate risk surgery, 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 Camera Used: QMCODES D-SPECT Image Protocol Stress Patient Position: upright [...] Deb Sue MD on 03/08/2020 02:15 PM [facility] MR Shoulder Left Without Con traston [...] AC joint osteoarthrosis. Moderate glenohumeral joint effusion. [employer] Workstation ID: [id number] [facility] EXAMINATION: MR SHOULDER LEFT WITHOUT CONTRAST [...] the fluid extends into the subdeltoid bursa. [facility], Rad In Padmini Garciaq - 12/10/2019 3:36 PM EST EXAMINATION: MR [...] AC joint osteoarthrosis. Moderate glenohumeral joint effusion. [facility] Workstation ID: [id number] [facility] IO UA (nonautomated w/o micr oscopy)on 11-12-2019 Protein (U) [Mass/Vol] Negative Negative [employer] Work Phone: IO UA (nonautomated w/o microscopy) Clear Clear TY[employer]maiktl[employer] Work Phone: IO UA (nonautomated w/o microscopy) Negative Negative TW-[employer] Work Phone: IO UA (nonautomated w/o microscopy) 1.025 1.000-1.030 PZ-Qpnxjcr[facility]pk [facility] Work Phone: IO UA (nonautomated w/o microscopy) Yellow Colorless-Ye llow VR-Ssjdqpc-Qoe land Work Phone: IO UA (nonautomated w/o microscopy) 5.5 5.0-8.0 KH-Yvunleh-Qxo [facility] Work Phone: IO UA (nonautomated w/o microscopy) Normal (0.2-1.0 mg/dl) Normal WR-Ieuxxxa-Csr [facility] Work Phone: IO Ultrasound, measurement p ost-void resid urine and/or bl cap; no imagon 10-08-2019 IO Ultrasound, measurement post-void resid urine and/or bl cap; no imag 36 ml/min WF-Wltelte[facility]Pnx [facility] Work Phone: LDL, Direct, Serumon 019 Cholesterol in LDL [Mass/Vol] 102 mg/dL 0 - 129 -[facility] Work Phone: Comment on above: Elevated levels [...] [Catalytic activity/Vol] 100 U/L 33 - 136 [facility] Work Phone: Anion gap [Moles/Vol] 12 mmol/L 10 - 20 - [facility] Work Phone: Bilirubin [Mass/Vol] 0.6 mg/dL 0.0 - 1.2 [facility] Work Phone: Calcium [Mass/Vol] 9.1 mg/dL 8.6 - 10.3 -[facility] Work Phone: Chloride [Moles/Vol] 106 mmol/L 98 - 107 - [facility] Work Phone: CO2 [Moles/Vol] 24 mmol/L 21 - 32 -[facility]ica l [facility] Work Phone: Creatinine [Mass/Vol] 0.93 mg/dL See Below - [facility] Work Phone: Comment on above: Reference Range: 0.5 0 - 1.30 Glucose [Mass/Vol] 101 mg/dL above high threshold 74 - 99 [facility] Work Phone: Potassium [Moles/Vol] 4.0 mmol/L 3.5 - 5.3 - [facility] Work Phone: Protein [Mass/Vol] 6.2 g/dL below low threshold 6.4 - 8.2 -[facility] Work Phone: Sodium [Moles/Vol] 138 mmol/L 136 - 145 [facility] Work Phone: Urea nitrogen [Mass/Vol] 28 mg/dL above high threshold 6 - 23 -Medical [facility] Work Phone: Otheron 09-29-2019 Albumin BCP dye [Mass/Vol] 3.9 g/dL 3.4 - 5.0 [facility] Work Phone: ALT With P-5'-P [Catalytic activity/Vol] 15 U/L 10 - 52 [facility] Work Phone: Comment on above: Patients treated wit h Sulfasalazine may generate falsely decreased results for ALT. AST With P-5'-P [Catalytic activity/Vol] 15 U/L 9 - 39 [facility] Work Phone: >60 >60 [facility] Work Phone: Comment on above: CALCULATIONS OF LEONIDES MATED GFR ARE PERFORMED USING THE MDRD STUDY EQUATION FOR THE IDMS-TRACEABLE CREATININE METHODS. CLIN CHEM 2007;53:766-72 Basic Metabolic Panelon 11-2 Anion gap [Moles/Vol] 13 mmol/L 10 - 2 0 mmol/L [facility] Calcium [Mass/Vol] 8.3 mg/dL Low 8.4 - 10. 2 mg/dL [facility] Chloride [Moles/Vol] 109 mmol/L High 98 - 10 8 mmol/L [facility] Creatinine [Mass/Vol] 0.86 mg/dL 0.8 - 1.3 mg/dL [facility] GFR/1.73 sq M predicted among non-blacks MDRD (S/P/Bld) [Vol rate/Area] The eGFR should be used for monitoring renal function only and not for medication dosing. [facility] GFR/1.73 sq M.predicted CKD-EPI (S/P/Bld) [Vol rate/Area] 80 >=60 mL/min/1.73 m2 [facility] Glucose [Mass/Vol] 99 mg/dL 65 - 99 mg/dL [facility] HCO3 [Moles/Vol] 23 mmol/L 21 - 32 mmol/L [facility] Interpretation and review of laboratory results Abnormal [facility] Potassium [Moles/Vol] 4.0 mmol/L 3.5 - 5.1 mmol/L [facility] Sodium [Moles/Vol] 141 mmol/L 135 - 145 mmol/L [facility] Urea nitrogen [Mass/Vol] 17 mg/dL 8 - 25 mg/dL [facility] Urea nitrogen/Creatinine [Mass ratio] 19.8 mg/mg [facility] Hemoglobin and Hematocriton 09-11-2019 Hematocrit (Bld) [Volume fraction] 35.5 % Low 41 - 53 % [facility] Hemoglobin (Bld) [Mass/Vol] 11.9 g/dL Low 13.5 - 17.5 g/dL [facility] Interpretation and review of laboratory results Abnormal [facility] XR Hip Left 2-3 Views (Routi ne)on 09-10-2019 Interface, Rad In Fu[employer] Speechq - 09/10/2019 6:30 PM EST EXAMINATION: [...] limits. IMPRESSION: Interval left total hip replacement. [employer] Workstation ID: [id number] [facility] EXAMINATION: XR HIP LEFT 2-3 VIEWS [...] fracture. Soft tissues are within normal limits. [facility] Interval left total hip replacement. ST/miguelangel Workstation ID: [id number] [facility] Complete Blood Count + Gina lopez 08-22-2019 Basophils (Bld) [#/Vol] 0.00 {x10E9/L} See Below [facility] [place] Work Phone: Comment on above: Reference Range: 0.0 0 - 0.10 Ordering Provider: Tacos HERNANDEZA JOSE M 13658 Basophils/100 WBC (Bld) 0.5 % 0.0 - 2.0 [facility] [place] Work Phone: Comment on above: Ordering Provider: Tacos ADMA JOSE M 75506 Eosinophils (Bld) [#/Vol] 0.20 {x10E9/L} See Below [facility] [place] Work Phone: Comment on above: Reference Range: 0.0 0 - 0.40 Ordering Provider: P ADMA JOSE M 42443 Eosinophils/100 WBC (Bld) 2.8 % 0.0 - 6.0 [facility] [place] Work Phone: Comment on above: Ordering Provider: Tacos HERNANDEZA JOSE M 35233 Erythrocyte distribution width (RBC) [Ratio] 13.5 % See Below [facility] [place] Work Phone: Comment on above: Reference Range: 11. 5 - 14.5 Ordering Provider: Tacos ADMA NEETULANFLORENTIN 22917 Hematocrit (Bld) [Volume fraction] 40.3 % below low threshold See Below [facility] [place] Work Phone: Comment on above: Reference Range: 41. 0 - 52.0 Ordering Provider: Tacos ADMA NEETULANKI 71702 Hemoglobin (Bld) [Mass/Vol] 13.7 g/dL See Below [facility] [place] Work Phone: Comment on above: Reference Range: 13. 5 - 17.5 Ordering Provider: P ADMA NEETULANKI 85001 Lymphocytes (Bld) [#/Vol] 1.10 {x10E9/L} See Below [facility] Work Phone: Comment on above: Reference Range: 0.8 0 - 3.00 Ordering Provider: Tacos SALGUERO 17824 Lymphocytes/100 WBC (Bld) 13.5 % See Below [facility] Work Phone: Comment on above: Reference Range: 13. 0 - 44.0 Ordering Provider: Tacos SALGUERO 75053 MCHC (RBC) [Mass/Vol] 34.0 g/dL See Below [facility] Work Phone: Comment on above: Reference Range: 32. 0 - 36.0 Ordering Provider: Tacos SALGUERO 28741 MCV (RBC) [Entitic vol] 101 fL above high threshold 80 - 100 [facility] Work Phone: Comment on above: Ordering Provider: Tacos SALGUERO 91497 Monocytes (Bld) [#/Vol] 0.80 {x10E9/L} See Below [facility] Work Phone: Comment on above: Reference Range: 0.0 5 - 0.80 Ordering Provider: Tacos SALGUERO 22767 Monocytes/100 WBC (Bld) 9.5 % 2.0 - 10.0 [facility] Work Phone: Comment on above: Ordering Provider: Tacos SALGUERO 96953 Neutrophils/100 WBC (Bld) 73.7 % See Below [facility] Work Phone: Comment on above: Reference Range: 40. 0 - 80.0 Ordering Provider: Tacos ADMA NEETULANFLORENTIN 69506 Platelets (Bld) [#/Vol] 273 {x10E9/L} 150 - 450 [facility] Work Phone: Comment on above: Ordering Provider: Tacos HERNANDEZA JOSE M 06081 RBC (Bld) [#/Vol] 3.98 {x10E12/L} below low threshold See Below [facility] Work Phone: Comment on above: Reference Range: 4.5 0 - 5.90 Ordering Provider: Tacos ADMA JOSE M 19471 WBC (Bld) [#/Vol] 8.1 {x10E9/L} 4.4 - 11.3 [facility] Work Phone: Comment on above: Ordering Provider: Tacos ADMA JOSE M 59038 Complete Blood Count + Differential 6.00 {x10E9/L} above high threshold See Below [facility] Work Phone: Comment on above: Reference Range: 1.6 0 - 5.50 Ordering Provider: Tacos SALGUERO 68172 Metabolic Panelon 08-22-2019 ALP [Catalytic activity/Vol] 73 U/L 33 - 136 [facility] Work Phone: Comment on above: Ordering Provider: P ADMA JOSE M 48696 Anion gap [Moles/Vol] 9 mmol/L below low threshold 10 - 20 [facility] Work Phone: Comment on above: Ordering Provider: P ADMA NEETULANFLORENTIN 46921 Bilirubin [Mass/Vol] 0.6 mg/dL 0.0 - 1.2 [facility] Work Phone: Comment on above: Ordering Provider: P ADMA NEETULANFLORENTIN 56531 Calcium [Mass/Vol] 8.9 mg/dL 8.6 - 10.3 [facility] Work Phone: Comment on above: Ordering Provider: P ADMA ENETULANFLORENTIN 42987 Chloride [Moles/Vol] 105 mmol/L 98 - 107 [facility] Work Phone: Comment on above: Ordering Provider: P ADMA NEETULANFLORENTIN 55543 CO2 [Moles/Vol] 29 mmol/L 21 - 32 [facility] Work Phone: Comment on above: Ordering Provider: P ADMA NEETULANKI 20090 Creatinine [Mass/Vol] 0.84 mg/dL See Below [facility] Work Phone: Comment on above: Reference Range: 0.5 0 - 1.30 Ordering Provider: P ADMA NEETULANKI 93807 Glucose [Mass/Vol] 88 mg/dL 74 - 99 [facility] Work Phone: Comment on above: Ordering Provider: P ADMA NEETULANKI 14525 Potassium [Moles/Vol] 4.0 mmol/L 3.5 - 5.3 [facility] Work Phone: Comment on above: Ordering Provider: P ADMA NEETULANKI 87272 Protein [Mass/Vol] 6.2 g/dL below low threshold 6.4 - 8.2 [facility] Work Phone: Comment on above: Ordering Provider: P ADMA NEETULANKI 87939 Sodium [Moles/Vol] 139 mmol/L 136 - 145 [facility] Work Phone: Comment on above: Ordering Provider: P ADMA NEETULANKI 74118 Urea nitrogen [Mass/Vol] 22 mg/dL 6 - 23 [facility] Work Phone: Comment on above: Ordering Provider: P ADMA NEETULANKI 81337 Otheron 08-22-2019 Albumin BCP dye [Mass/Vol] 4.1 g/dL 3.4 - 5.0 [facility] Work Phone: Comment on above: Ordering Provider: P ADMA NEETULANKI 76394 ALT With P-5'-P [Catalytic activity/Vol] 16 U/L 10 - 52 [facility] Work Phone: Comment on above: Patients treated wit h Sulfasalazine may generate falsely decreased results for ALT. Ordering Provider: P ADMA VELLANKI 78544 AST With P-5'-P [Catalytic activity/Vol] 16 U/L 9 - 39 [facility] Work Phone: Comment on above: Ordering Provider: P RADHA SALGUERO 03155 >60 >60 [facility] Work Phone: Comment on above: Ordering Provider: P ADMA JOSE M 28553 CALCULATIONS OF LEONIDES MATED GFR ARE PERFORMED USING THE MDRD STUDY EQUATION FOR THE IDMS-TRACEABLE CREATININE METHODS. 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 Mild osteoarthritic changes of the knees. 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 Recommend vascular surgery follow-up. [facility] [facility] Workstation ID: [id number] [facility] EXAMINATION: CT HIP LEFT WITHOUT CONTRAST [...] Severe left hip joint space narrowing with fpqs-ii-sejs appearance, superolateral migration of the femoral head, subchondral sclerosis, subchondral cystic changes and moderate marginal osteophytosis, compatible with advanced osteoarthritis. Severe right hip joint space narrowing with dddn-jq-hzlq appearance and moderate marginal osteophytosis, compatible with [...] atherosclerotic calcification of the visualized popliteal arteries. [facility] Interface, Rad In Padmini Garciaq - 08/19/2019 6:49 PM EDT EXAMINATION: CT [...] Severe left hip joint space narrowing with chpw-ir-vvon appearance, superolateral migration of the femoral head, subchondral sclerosis, subchondral cystic changes and moderate marginal osteophytosis, compatible with advanced osteoarthritis. Severe right hip joint space narrowing with achl-nb-mxzz appearance and moderate marginal osteophytosis, compatible with [...] to 3.4 cm. Recommend vascular surgery follow-up. [facility] Workstation ID: [id number] [facility] Otheron 08-05-2019 CT Head limited WO contrast Interpreted by: RUBINA PINEDA08/05/19 15:15MRN: [id number] Name: NISHAFAWN STUDY:CT HEAD WO CONTRAST; 08/05/2019 3:04 pm [...] Work Phone: Comment on above: Ordering Provider: Edwina RICHEY 20291 Auto Diffon 05-24-2019 Basophils (Bld) [#/Vol] 0.0 E3/mcL Normal 0.0-0.[address] [facility] Comment on above: Order Comment: Order Added by Discern Expert. Performed By: #### 2 [id number] #### LUIS MANUEL [employer] [facility] [place] [address] Basophils/100 WBC (Bld) 0.6 % Normal 0.0-2.[address] [facility] Comment on above: Order Comment: Order Added by Manju Expert. Performed By: #### 2 [id number] #### LUIS MANUEL [employer] [address] [place] [address] Eos Absolute 0.2 E3/mcL Normal 0.0-0.[address] [facility] Comment on above: Order Comment: Order Added by Discern Expert. Performed By: #### 2 [id number] #### LUIS MANUEL [employer] [address] [place] [address] Eosinophils/100 WBC (Bld) 2.4 % Normal 0.0-11.[address] [facility] Comment on above: Order Comment: Order Added by Discern Expert. Performed By: #### 2 [id number] #### LUIS MANUEL [employer] [address] [place] [address] Lymphocytes (Bld) [#/Vol] 1.2 E3/mcL Normal 1.2-3.[address] [facility] Comment on above: Order Comment: Order Added by Discern Expert. Performed By: #### 2 [id number] #### LUIS MANUEL [employer] [address] [place] [address] Lymphocytes/100 WBC (Bld) 15.9 % Low 20.0-55.[address] [facility] Comment on above: Order Comment: Order Added by Discern Expert. Performed By: #### 2 [id number] #### LUIS MANUEL [employer] [address] [place] [address] Sebastian Absolute 0.9 E3/mcL High 0.0-0.[address] [facility] Comment on above: Order Comment: Order Added by Discern Expert. Performed By: #### 2 [id number] #### LUIS MANUEL [employer] [address] [place] [address] Monocytes/100 WBC (Bld) 11.2 % High 0.0-10.[address] [facility] Comment on above: Order Comment: Order Added by Discern Expert. Performed By: #### 2 [id number] #### LUIS MANUEL [employer] [address] [place] [address] Neutro Absolute 5.5 E3/mcL Normal 1.4-6.[address] [facility] Comment on above: Order Comment: Order Added by Discern Expert. Performed By: #### 2 [id number] #### LUIS MANUEL [employer] [address] [place] [address] Neutro Auto 69.9 % Normal 37.0-75.[address] [facility] Comment on above: Order Comment: Order Added by Discern Expert. Performed By: #### 2 [id number] #### LUIS MANUEL [address] [address] CBC w/ Auto Diffon 9 Erythrocyte distribution width (RBC) [Ratio] 13.7 % Normal 11.5-14.[address] [facility] Comment on above: Performed By: #### 2 [id number] #### LUIS MANUEL [employer] [address] [place] [address] Hematocrit (Bld) [Volume fraction] 42.6 % Normal 42.0-52.[address] [facility] Comment on above: Performed By: #### 2 [id number] #### LUIS MANUEL [facility] [address] [place] [address] Hemoglobin (Bld) [Mass/Vol] 14.2 g/dL Normal 13.5-18.[address] [facility] Comment on above: Performed By: #### 2 [id number] #### LUIS MANUEL [employer] [address] [place] [address] MCH (RBC) [Entitic mass] 33.5 pg High 27.0-31.[address] [facility] Comment on above: Performed By: #### 2 476605 #### LUIS MANUEL [employer] [address] [place] [address] MCHC (RBC) [Mass/Vol] 33.4 g/dL Normal 33.0-37.0 [facility] Comment on above: Performed By: #### 2 [id number] #### LUIS MANUEL [employer] [address] [place] [address] MCV (RBC) [Entitic vol] 100.3 fL High 78.0-100.[address] [facility] Comment on above: Performed By: #### 2 [id number] #### LUIS MANUEL [employer] [facility] [place] [address] Platelet mean volume (Bld) [Entitic vol] 7.9 fL Normal 7.4-11.[address] [facility] Comment on above: Performed By: #### 2 [id number] #### LUIS MANUEL [employer] [address] [place] [address] Platelets (Bld) [#/Vol] 263 E3/mcL Normal 130-[address] [facility] Comment on above: Performed By: #### 2 [id number] #### LUIS MANUEL [employer] [address] [place] [address] RBC (Bld) [#/Vol] 4.24 E6/mcL Normal 3.90-6.10 [facility] Comment on above: Performed By: #### 2 [id number] #### LUIS MANUEL [employer] [address] [place] [address] WBC (Bld) [#/Vol] 7.9 E3/mcL Normal 3.6-11.0 [facility] Comment on above: Performed By: #### 2 [id number] #### LUIS MANUEL [employer] [address] [place] [address] CMPon 05-24-2019 Albumin [Mass/Vol] 4.2 g/dL Normal 3.4-5.0 [facility] Comment on above: Performed By: #### 2 [id number] #### LUIS MANUELReji BoyerQmerce [facility] [place] [address] Albumin/Globulin [Mass ratio] 1.9 {ratio} Normal 1.1-1.[address] [facility] Comment on above: Performed By: #### 2 [id number] #### LUIS MANUELReji BoyerQmerce [facility] [place] [address] Alk Phos 78 Int._Unit/L Normal 33-[address] [facility] Comment on above: Performed By: #### 2 088722 #### LUIS MANUEL BoyerQmerce [facility] [place] [address] ALT [Catalytic activity/Vol] 19 Int._Unit/L Normal 10-[address] [facility] Comment on above: Performed By: #### 2 [id number] #### LUIS MANUELReji BoyerQmerce [address] [place] [address] Anion gap [Moles/Vol] 10 mmol/L Normal 10-20 [facility] Comment on above: Performed By: #### 2 166511 #### LUIS MANUEL [employer] [address] [place] [address] AST [Catalytic activity/Vol] 20 Int._Unit/L Normal 9-[address] [facility] Comment on above: Performed By: #### 2 049161 #### LUIS MANUELReji BoyerQmerce [address] [place] [address] Bili Total 0.62 mg/dL Normal 0.00-1.[address] [facility] Comment on above: Performed By: #### 2 366216 #### LUIS MANUELReji BoyerQmerce [address] [place] [address] Calcium [Mass/Vol] 8.9 mg/dL Normal 8.6-10.3 [facility] Comment on above: Performed By: #### 2 751929 #### [facility] [employer] [facility] [place] [address] Chloride [Moles/Vol] 106 mmol/L Normal 98-107 [facility] Comment on above: Performed By: #### 2 298878 #### [facility] [employer] [address] [place] [address] CO2 [Moles/Vol] 29.0 mmol/L Normal 21.0-32.0 [facility] Comment on above: Performed By: #### 2 351860 #### LUIS MANUEL [employer] [address] [place] [address] Creatinine [Mass/Vol] 1.0 mg/dL Normal 0.5-1.3 [facility] Comment on above: Performed By: #### 2 757591 #### LUIS MANUEL [employer] [address] [place] [address] Globulin (S) [Mass/Vol] 2.0 g/dL Normal 2.0-4.[address] [facility] Comment on above: Performed By: #### 2 214088 #### LUIS MANUEL [employer] [address] [place] [address] Glucose [Mass/Vol] 92 mg/dL Normal 70-99 [facility] Comment on above: Performed By: #### 2 163173 #### LUIS MANUEL [employer] [address] [place] [address] Potassium [Moles/Vol] 4.2 mmol/L Normal 3.5-5.3 [facility] Comment on above: Performed By: #### 2 490578 #### LUIS MANUEL [employer] [address] [place] [address] Protein [Mass/Vol] 6.4 g/dL Normal 6.4-8.2 [facility] Comment on above: Performed By: #### 2 897522 #### LUIS MANUEL [employer] [address] [place] [address] Sodium [Moles/Vol] 141 mmol/L Normal 136-145 [facility] Comment on above: Performed By: #### 2 000864 #### LUIS MANUEL [employer] [address] [place] [address] Urea nitrogen [Mass/Vol] 22 mg/dL Normal 6-[address] [facility] Comment on above: Performed By: #### 2 233750 #### LUIS MANUEL [employer] [address] [place] [address] Urea nitrogen/Creatinine [Mass ratio] 22.0 ratio Normal 5.4-30.[address] [facility] Comment on above: Performed By: #### 2 037932 #### LUIS MANUEL [employer] [address] [place] [address] eGFRon 05-24-2019 GFR/1.73 sq M predicted among non-blacks MDRD (S/P/Bld) [Vol rate/Area] mL/min/{1.73_m2} Normal [facility] Comment on above: Order Comment: Order added by Discern Expert. Performed By: #### 2 [id number] #### LUIS MANUEL Stein [address] [place] [address] ECG 12-LEADon 05-19-2019 Atrial Rate [facility] P [place] [facility] P-R Interval [facility] Q-T Interval [facility] Q-T Interval (corrected) [facility] QRS Duration [facility] QTC Calculation (Bezet) [facility] R [place] [facility] T [place] [facility] Ventricular Rate [facility] th XR Esophaguson 04-16-2019 XR Esophagus Exam Date/Time: 04/16/2019 08:36 EDT Reason for Exam: ESOPHAGEAL SPASM HIATAL HERNIA;Esophageal spasm Report STUDY: Esophagram dated 04/16/2019. INDICATION: Pain. COMPARISON: None. ACCESSION NUMBER(S): [id number] ORDERING CLINICIAN: Daysi Arenas TECHNIQUE: Insulation Power Unit Tender radiograph of the abdomen was obtained. Patient [...] am Signed by: João Zamora MD Technologist: TRCande Normal [facility] CMPon 03-20-2019 Albumin [Mass/Vol] 3.8 g/dL Normal 3.4-5.0 [facility] Comment on above: Performed By: #### 2 [id number] #### LUIS MANUEL BoyerHemo [address] [place] [address] Albumin/Globulin [Mass ratio] 2.2 {ratio} High 1.1-1.[address] [facility] Comment on above: Performed By: #### 2 847416 #### LUIS MANUEL BoyerHemo [address] [place] [address] Alk Phos 68 Int._Unit/L Normal 33-[address] [facility] Comment on above: Performed By: #### 2 [id number] #### LUIS MANUEL BoyerHemo [facility] [place] [address] ALT [Catalytic activity/Vol] 15 Int._Unit/L Normal 10-[address] [facility] Comment on above: Performed By: #### 2 819249 #### LUIS MANUEL BoyerHemo [address] [place] [address] Anion gap [Moles/Vol] 9 mmol/L Low 10-20 [facility] Comment on above: Performed By: #### 2 [id number] #### LUIS MANUEL BoyerHemo [address] [place] [address] AST [Catalytic activity/Vol] 17 Int._Unit/L Normal 9-[address] [facility] Comment on above: Performed By: #### 2 340359 #### LUIS MANUEL BoyerHemo [address] [place] [address] Bili Total 0.86 mg/dL Normal 0.00-1.[address] [facility] Comment on above: Performed By: #### 2 697832 #### LUIS MANUELReji BoyerHemo [address] [place] [address] Calcium [Mass/Vol] 8.4 mg/dL Low 8.6-10.3 [facility] Comment on above: Performed By: #### 2 203243 #### LUIS MANUEL BoyerHemo [address] [place] [address] Chloride [Moles/Vol] 108 mmol/L High 98-107 [facility] Comment on above: Performed By: #### 2 887834 #### LUIS MANUEL BoyerHemo [address] [place] [address] CO2 [Moles/Vol] 25.0 mmol/L Normal 21.0-32.0 [facility] Comment on above: Performed By: #### 2 755832 #### LUIS MANUEL BoyerHemo [address] [place] [address] Creatinine [Mass/Vol] 0.9 mg/dL Normal 0.5-1.3 [facility] Comment on above: Performed By: #### 2 599636 #### LUIS MANUEL RemHemo [address] [place] [address] Globulin (S) [Mass/Vol] 2.0 g/dL Normal 2.0-4.[address] [facility] Comment on above: Performed By: #### 2 306609 #### LUIS MANUEL RosalindHemo [address] [place] [address] Glucose [Mass/Vol] 91 mg/dL Normal 70-99 [facility] Comment on above: Performed By: #### 2 342620 #### LUIS MANUEL RemHemo [address] [place] [address] Potassium [Moles/Vol] 3.8 mmol/L Normal 3.5-5.3 [facility] Comment on above: Performed By: #### 2 090324 #### LUIS MANUEL RemHemo [address] [place] [address] Protein [Mass/Vol] 5.5 g/dL Low 6.4-8.2 [facility] Comment on above: Performed By: #### 2 313513 #### LUIS MANUEL RemHemo [address] [place] [address] Sodium [Moles/Vol] 138 mmol/L Normal 136-145 [facility] Comment on above: Performed By: #### 2 956854 #### LUIS MANUEL RemHemo [address] [place] [address] Urea nitrogen [Mass/Vol] 18 mg/dL Normal 6-[address] [facility] Comment on above: Performed By: #### 2 476077 #### LUIS MANUEL RemHemo [address] [place] [address] Urea nitrogen/Creatinine [Mass ratio] 20.0 ratio Normal 5.4-30.[address] [facility] Comment on above: Performed By: #### 2 394636 #### LUIS MANUEL RemHemo [address] [place] [address] Lipid Profileon 03-20-2019 Cholesterol [Mass/Vol] 132 mg/dL Normal 0-199 [facility] Comment on above: Performed By: #### 2 671482 #### LUIS MANUEL [employer] [address] [place] [address] Cholesterol in HDL [Mass/Vol] 34 mg/dL Low 40-[address] [facility] Comment on above: Performed By: #### 2 816913 #### LUIS MANUEL [employer] [address] [place] [address] Cholesterol in LDL [Mass/Vol] 77 mg/dL Normal 0-[address] [facility] Comment on above: Performed By: #### 2 828282 #### LUIS MANUEL [employer] [facility] [place] [address] Cholesterol in VLDL [Mass/Vol] 21 mg/dL Normal 0-[address] [facility] Comment on above: Performed By: #### 2 640897 #### LUIS MANUEL [employer] [facility] [place] [address] Triglyceride [Mass/Vol] 107 mg/dL Normal 0-[address] [facility] Comment on above: Result Comment: AGE DESIRABLE BORDERLINE HIGH 91 D - 9 Y 0 - 74 75 - 99 > 100 10 - 19 Y 0 - 89 90 - 129 > 130 20 - 24 Y 0 - 114 115 - 149 > 150 > 25 0 - 149 150 - 199 200 - 499 Performed By: #### 2 908359 #### LUIS MANUEL [employer] [facility] [place] [address] eGFRon 03-20-2019 GFR/1.73 sq M predicted among non-blacks MDRD (S/P/Bld) [Vol rate/Area] mL/min/{1.73_m2} Normal [facility] Comment on above: Order Comment: Order added by Discern Expert. Performed By: #### 2 122718 #### LUIS MANUEL [employer] [address] [place] [address] Auto Diffon 02-24-2019 Basophils (Bld) [#/Vol] 0.0 E3/mcL Normal 0.0-0.[address] [facility] Comment on above: Order Comment: Order Added by Discern Expert. Performed By: #### 2 867541 #### LUIS MANUEL RemHemo [address] [place] [address] Basophils/100 WBC (Bld) 0.6 % Normal 0.0-2.[address] [facility] Comment on above: Order Comment: Order Added by Discern Expert. Performed By: #### 2 779390 #### LUIS MANUEL RemHemo [address] [place] [address] Eos Absolute 0.2 E3/mcL Normal 0.0-0.[address] [facility] Comment on above: Order Comment: Order Added by Discern Expert. Performed By: #### 2 943687 #### LUIS MANUEL RemHemo [address] [place] [address] Eosinophils/100 WBC (Bld) 3.2 % Normal 0.0-11.[address] [facility] Comment on above: Order Comment: Order Added by Discern Expert. Performed By: #### 2 583406 #### LUIS MANUEL RemHemo [address] [place] [address] Lymphocytes (Bld) [#/Vol] 1.1 E3/mcL Low 1.2-3.[address] [facility] Comment on above: Order Comment: Order Added by Discern Expert. Performed By: #### 2 434589 #### LUIS MANUEL BoyerHemo [address] [place] [address] Lymphocytes/100 WBC (Bld) 15.4 % Low 20.0-55.[address] [facility] Comment on above: Order Comment: Order Added by Discern Expert. Performed By: #### 2 979408 #### LUIS MANUEL RemHemo [address] [place] [address] Sebastian Absolute 0.8 E3/mcL High 0.0-0.[address] [facility] Comment on above: Order Comment: Order Added by Discern Expert. Performed By: #### 2 217242 #### LUIS MANUEL RemHemo [address] [place] [address] Monocytes/100 WBC (Bld) 11.2 % High 0.0-10.[address] [facility] Comment on above: Order Comment: Order Added by Discern Expert. Performed By: #### 2 287294 #### LUIS MANUEL RemHemo [address] [place] [address] Neutro Absolute 5.0 E3/mcL Normal 1.4-6.[address] [facility] Comment on above: Order Comment: Order Added by Discern Expert. Performed By: #### 2 604602 #### LUIS MANUEL BoyerHemo [address] [place] [address] Neutro Auto 69.6 % Normal 37.0-75.[address] [facility] Comment on above: Order Comment: Order Added by Discern Expert. Performed By: #### 2 354818 #### LUIS MANUEL BoyerHemo [facility]5 [place] [address] CBC w/ Auto Diffon 9 Erythrocyte distribution width (RBC) [Ratio] 14.0 % Normal 11.5-14.[address] [facility] Comment on above: Performed By: #### 2 109793 #### LUIS MANUEL BoyerHemo [address] [place] [address] Hematocrit (Bld) [Volume fraction] 41.4 % Low 42.0-52.[address] [facility] Comment on above: Performed By: #### 2 730690 #### LUIS MANUEL BoyerHemo [facility] [place] [address] Hemoglobin (Bld) [Mass/Vol] 13.9 g/dL Normal 13.5-18.[address] [facility] Comment on above: Performed By: #### 2 423287 #### LUIS MANUEL BoyerHemo [facility] [place] [address] MCH (RBC) [Entitic mass] 33.7 pg High 27.0-31.[address] [facility] Comment on above: Performed By: #### 2 460430 #### LUIS MANUEL BoyerHemo [address] [place] [address] MCHC (RBC) [Mass/Vol] 33.7 g/dL Normal 33.0-37.0 [facility] Comment on above: Performed By: #### 2 447946 #### LUIS MANUEL RemHemo [address] [place] [address] MCV (RBC) [Entitic vol] 100.0 fL Normal 78.0-100.[address] [facility] Comment on above: Performed By: #### 2 118507 #### LUIS MANUEL BoyerHemo [address] [place] [address] Platelet mean volume (Bld) [Entitic vol] 7.8 fL Normal 7.4-11.[address] [facility] Comment on above: Performed By: #### 2 086750 #### LUIS MANUEL BoyerHemo [address] [place] [address] Platelets (Bld) [#/Vol] 245 E3/mcL Normal 130-[address] [facility] Comment on above: Performed By: #### 2 996211 #### LUIS MANUEL BoyerHemo [address] [place] [address] RBC (Bld) [#/Vol] 4.14 E6/mcL Normal 3.90-6.10 [facility] Comment on above: Performed By: #### 2 051025 #### LUIS MANUEL BoyerHemo [address] [place] [address] WBC (Bld) [#/Vol] 7.2 E3/mcL Normal 3.6-11.0 [facility] Comment on above: Performed By: #### 2 236248 #### LUIS MANUEL BoyerHemo [address] [place] [address] CMPon 02-24-2019 Albumin [Mass/Vol] 3.8 g/dL Normal 3.4-5.0 [facility] Comment on above: Performed By: #### 2 701916 #### LUIS MANUEL BoyerHemo [address] [place] [address] Albumin/Globulin [Mass ratio] 1.9 {ratio} Normal 1.1-1.[address] [facility] Comment on above: Performed By: #### 2 790198 #### LUIS MANUEL RemHemo [address] [place] [address] Alk Phos 70 Int._Unit/L Normal 33-[address] [facility] Comment on above: Performed By: #### 2 318444 #### LUIS MANUEL BoyerHemo [address] [place] [address] ALT [Catalytic activity/Vol] 18 Int._Unit/L Normal 10-[address] [facility] Comment on above: Performed By: #### 2 362690 #### LUIS MANUEL Bedollao [address] [place] [address] Anion gap [Moles/Vol] 11 mmol/L Normal 10-20 [facility] Comment on above: Performed By: #### 2 615094 #### LUIS MANUEL Bedollao [address] [place] [address] AST [Catalytic activity/Vol] 19 Int._Unit/L Normal 9-[address] [facility] Comment on above: Performed By: #### 2 842623 #### LUIS MANUEL Bedollao [address] [place] [address] Bili Total 0.83 mg/dL Normal 0.00-1.[address] [facility] Comment on above: Performed By: #### 2 363432 #### LUIS MANUEL Bedollao [facility] [place] [address] Calcium [Mass/Vol] 8.8 mg/dL Normal 8.6-10.3 [facility] Comment on above: Performed By: #### 2 144882 #### LUIS MANUEL BoyerHemo [facility] [place] [address] Chloride [Moles/Vol] 107 mmol/L Normal 98-107 [facility] Comment on above: Performed By: #### 2 222683 #### LUIS MANUEL BoyerHemo [address] [place] [address] CO2 [Moles/Vol] 25.0 mmol/L Normal 21.0-32.0 [facility] Comment on above: Performed By: #### 2 045268 #### LUIS MANUEL Bedollao [facility] [place] [address] Creatinine [Mass/Vol] 0.8 mg/dL Normal 0.5-1.3 [facility] Comment on above: Performed By: #### 2 598540 #### LUIS MANUEL BoyerHemo [address] [place] [address] Globulin (S) [Mass/Vol] 2.0 g/dL Normal 2.0-4.[address] [facility] Comment on above: Performed By: #### 2 209011 #### LUIS MANUEL BoyerHemo [address] [place] [address] Glucose [Mass/Vol] 89 mg/dL Normal 70-99 [facility] Comment on above: Performed By: #### 2 541627 #### LUIS MANUEL BoyerHemo [address] [place] [address] Potassium [Moles/Vol] 3.8 mmol/L Normal 3.5-5.3 [facility] Comment on above: Performed By: #### 2 403928 #### LUIS MANUEL BoyerHemo [address] [place] [address] Protein [Mass/Vol] 5.8 g/dL Low 6.4-8.2 [facility] Comment on above: Performed By: #### 2 451282 #### LUIS MANUEL BoyerHemo [address] [place] [address] Sodium [Moles/Vol] 139 mmol/L Normal 136-145 [facility] Comment on above: Performed By: #### 2 166647 #### LUIS MANUEL BoyerHemo [address] [place], [place] [address] Urea nitrogen [Mass/Vol] 17 mg/dL Normal 6-[address] [facility] Comment on above: Performed By: #### 2 475668 #### LUIS MANUEL BoyerHemo [address] [place] [address] Urea nitrogen/Creatinine [Mass ratio] 21.2 ratio Normal 5.4-30.[address] [facility] Comment on above: Performed By: #### 2 975956 #### LUIS MANUEL BoyerHemo [facility] [place] [id number] eGFRon 02-24-2019 GFR/1.73 sq M predicted among non-blacks MDRD (S/P/Bld) [Vol rate/Area] mL/min/{1.73_m2} Normal [facility] Comment on above: Order Comment: Order Added by Discern Expert. Performed By: #### 2 312983 #### LUIS MANUEL BoyerHemo [address] [place] [address] Auto Diffon 11-23-2018 Basophils (Bld) [#/Vol] 0.0 E3/mcL Normal 0.0-0.[address] [facility] Comment on above: Order Comment: Order Added by Discern Expert. Performed By: #### 2 801841 #### LUIS MANUEL BoyerHemo [address] [place] [address] Basophils/100 WBC (Bld) 0.3 % Normal 0.0-2.[address] [facility] Comment on above: Order Comment: Order Added by Discern Expert. Performed By: #### 2 693463 #### LUIS MANUEL RemHemo [address] [place] [address] Eos Absolute 0.1 E3/mcL Normal 0.0-0.[address] [facility] Comment on above: Order Comment: Order Added by Discern Expert. Performed By: #### 2 661641 #### LUIS MANUEL RemHemo [address] [place] [address] Eosinophils/100 WBC (Bld) 1.5 % Normal 0.0-11.[address] [facility] Comment on above: Order Comment: Order Added by Discern Expert. Performed By: #### 2 307441 #### LUIS MANUEL RemHemo [address] [place] [address] Lymphocytes (Bld) [#/Vol] 1.1 E3/mcL Low 1.2-3.[address] [facility] Comment on above: Order Comment: Order Added by Discern Expert. Performed By: #### 2 523119 #### LUIS MANUEL RemHemo [address] [place] [address] Lymphocytes/100 WBC (Bld) 13.9 % Low 20.0-55.[address] [facility] Comment on above: Order Comment: Order Added by Discern Expert. Performed By: #### 2 783878 #### LUIS MANUEL RemHemo [address] [place] [address] Sebastian Absolute 0.8 E3/mcL High 0.0-0.[address] [facility] Comment on above: Order Comment: Order Added by Discern Expert. Performed By: #### 2 272298 #### LUIS MANUEL RemHemo [address] [place] [address] Monocytes/100 WBC (Bld) 10.5 % High 0.0-10.[address] [facility] Comment on above: Order Comment: Order Added by Discern Expert. Performed By: #### 2 284837 #### LUIS MANUEL RemHemo [address] [place] [address] Neutro Absolute 5.8 E3/mcL Normal 1.4-6.[address] [facility] Comment on above: Order Comment: Order Added by Discern Expert. Performed By: #### 2 726816 #### LUIS MANUEL Bedollao [facility] [place] [address] Neutro Auto 73.8 % Normal 37.0-75.[address] [facility] Comment on above: Order Comment: Order Added by Discern Expert. Performed By: #### 2 636810 #### LUIS MANUEL Huang [address] [place], [place] [address] CBC w/ Auto Diffon 9 Erythrocyte distribution width (RBC) [Ratio] 13.4 % Normal 11.5-14.[address] [facility] Comment on above: Performed By: #### 2 466385 #### LUIS MANUEL Huang [address] [place], [place] [address] Hematocrit (Bld) [Volume fraction] 43.0 % Normal 42.0-52.[address] [facility] Comment on above: Performed By: #### 2 314016 #### LUIS MANUEL Bedollao [address] [place] [address] Hemoglobin (Bld) [Mass/Vol] 14.3 g/dL Normal 13.5-18.[address] [facility] Comment on above: Performed By: #### 2 474439 #### LUIS MANUEL Bedollao [address] [place] [address] MCH (RBC) [Entitic mass] 33.5 pg High 27.0-31.[address] [facility] Comment on above: Performed By: #### 2 654412 #### LUIS MANUEL Bedollao [address] [place] [address] MCHC (RBC) [Mass/Vol] 33.2 g/dL Normal 33.0-37.0 [facility] Comment on above: Performed By: #### 2 834216 #### LUIS MANUEL BoyerHemo [address] [place] [address] MCV (RBC) [Entitic vol] 101.0 fL High 78.0-100.[address] [facility] Comment on above: Performed By: #### 2 722441 #### LUIS MANUEL BoyerHemo [address] [place] [address] Platelet mean volume (Bld) [Entitic vol] 8.1 fL Normal 7.4-11.[address] [facility] Comment on above: Performed By: #### 2 014197 #### LUIS MANUEL Bedollao [address] [place] [address] Platelets (Bld) [#/Vol] 260 E3/mcL Normal 130-[address] [facility] Comment on above: Performed By: #### 2 875768 #### LUIS MANUEL Bedolla[address] [address] RBC (Bld) [#/Vol] 4.25 E6/mcL Normal 3.90-6.10 [facility] Comment on above: Performed By: #### 2 731582 #### LUIS MANUEL Bedolla[address] [address] WBC (Bld) [#/Vol] 7.9 E3/mcL Normal 3.6-11.0 [facility] Comment on above: Performed By: #### 2 230028 #### LUIS MANUEL Bedollao [address] [place], [place] [address] CMPon 11-23-2018 Albumin [Mass/Vol] 4.2 g/dL Normal 3.4-5.0 [facility] Comment on above: Performed By: #### 2 927198 #### LUIS MANUEL Bedolla[address] [address] Albumin/Globulin [Mass ratio] 2.1 {ratio} High 1.1-1.[address] [facility] Comment on above: Performed By: #### 2 151884 #### LUIS MANUEL Bedollao [address] [place] [address] Alk Phos 66 Int._Unit/L Normal 33-[address] [facility] Comment on above: Performed By: #### 2 226841 #### LUIS MANUEL BoyerHemo [facility] [place] [address] ALT [Catalytic activity/Vol] 18 Int._Unit/L Normal 10-[address] [facility] Comment on above: Performed By: #### 2 860146 #### LUIS MANUEL BoyerHemo [facility] [place] [address] Anion gap [Moles/Vol] 9 mmol/L Low 10-20 [facility] Comment on above: Performed By: #### 2 668558 #### LUIS MANUEL RemHemo [address] [place] [address] AST [Catalytic activity/Vol] 19 Int._Unit/L Normal 9-[address] [facility] Comment on above: Performed By: #### 2 316060 #### LUIS MANUEL RemHemo [address] [place] [address] Bili Total 0.78 mg/dL Normal 0.00-1.[address] [facility] Comment on above: Performed By: #### 2 125586 #### LUIS MANUEL RemHemo [address] [place] [address] Calcium [Mass/Vol] 9.1 mg/dL Normal 8.6-10.3 [facility] Comment on above: Performed By: #### 2 [id number] #### LUIS MANUEL RemHemo [address] [place] [address] Chloride [Moles/Vol] 108 mmol/L High 98-107 [facility] Comment on above: Performed By: #### 2 457293 #### LUIS MANUEL RemHemo [address] [place] [address] CO2 [Moles/Vol] 28.0 mmol/L Normal 21.0-32.0 [facility] Comment on above: Performed By: #### 2 490282 #### LUIS MANUEL RemHemo [address] [place] [address] Creatinine [Mass/Vol] 0.9 mg/dL Normal 0.5-1.3 [facility] Comment on above: Performed By: #### 2 476578 #### LUIS MANUEL RemHemo [address] [place] [address] Globulin (S) [Mass/Vol] 2.0 g/dL Normal 2.0-4.[address] [facility] Comment on above: Performed By: #### 2 [id number] #### LUIS MANUEL RemHemo [address] [place] [address] Glucose [Mass/Vol] 81 mg/dL Normal 70-99 [facility] Comment on above: Performed By: #### 2 [id number] #### LUIS MANUEL RemHemo [address] [place] [address] Potassium [Moles/Vol] 3.8 mmol/L Normal 3.5-5.3 [facility] Comment on above: Performed By: #### 2 [id number] #### LUIS MANUEL BoyerHemo [address] [place] [address] Protein [Mass/Vol] 6.2 g/dL Low 6.4-8.2 [facility] Comment on above: Performed By: #### 2 124578 #### LUIS MANUEL RemHemo [address] [place] [address] Sodium [Moles/Vol] 142 mmol/L Normal 136-145 [facility] Comment on above: Performed By: #### 2 974671 #### LUIS MANUEL BoyerHemo [address] [place] [address] Urea nitrogen [Mass/Vol] 26 mg/dL High 6-[address] [facility] Comment on above: Performed By: #### 2 [id number] #### LUIS MANUEL BoyerHemo [address] [place] [address] Urea nitrogen/Creatinine [Mass ratio] 28.9 ratio Normal 5.4-30.[address] [facility] Comment on above: Performed By: #### 2 523962 #### LUIS MANUEL BoyerHemo [address] [place] [address] eGFRon 11-23-2018 GFR/1.73 sq M predicted among non-blacks MDRD (S/P/Bld) [Vol rate/Area] mL/min/{1.73_m2} Normal [facility] Comment on above: Order Comment: Order Added by Discern Expert. Performed By: #### 2 [id number] #### LUIS MANUEL RemHemo [address] [place] [address] CMPon 09-09-2018 Albumin [Mass/Vol] 3.9 g/dL Normal 3.4-5.0 [facility] Comment on above: Performed By: #### 2 [id number] #### LUIS MANUEL [employer] [address] [place] [address] Albumin/Globulin [Mass ratio] 2.3 {ratio} High 1.1-1.[address] [facility] Comment on above: Performed By: #### 2 187404 #### LUIS MANUEL [employer] [address] [place] [address] Alk Phos 68 Int._Unit/L Normal 33-[address] [facility] Comment on above: Performed By: #### 2 510223 #### LUIS MANUEL [employer] [address] [place] [address] ALT [Catalytic activity/Vol] 22 Int._Unit/L Normal 10-[address] [facility] Comment on above: Performed By: #### 2 950156 #### LUIS MANUEL [employer]er[employer] [facility] [place] [address] AST [Catalytic activity/Vol] 20 Int._Unit/L Normal 9-[address] [facility] Comment on above: Performed By: #### 2 681397 #### LUIS MANUELReji BoyerChem [facility] [place] [address] Bili Total 0.8 mg/dL Normal 0.0-1.[address] [facility] Comment on above: Performed By: #### 2 431145 #### LUIS MANUEL [employer] [address] [place] [address] Calcium [Mass/Vol] 8.8 mg/dL Normal 8.6-10.3 [facility] Comment on above: Performed By: #### 2 924923 #### LUIS MANUEL [employer] [address] [place] [address] Chloride [Moles/Vol] 106 mmol/L Normal 98-107 [facility] Comment on above: Performed By: #### 2 320569 #### LUIS MANUEL Rem[employer] [address] [place] [address] CO2 [Moles/Vol] 27.0 mmol/L Normal 21.0-32.0 [facility] Comment on above: Performed By: #### 2 041819 #### LUIS MANUEL RemChem [address] [place] [address] Creatinine [Mass/Vol] 0.8 mg/dL Normal 0.5-1.3 [facility] Comment on above: Performed By: #### 2 948919 #### LUIS MANUEL Rem[employer] [address] [place] [address] Globulin (S) [Mass/Vol] 2.0 g/dL Normal 2.0-4.[address] [facility] Comment on above: Performed By: #### 2 658211 #### LUIS MANUEL [employer] [address] [place] [address] Glucose [Mass/Vol] 89 mg/dL Normal 70-99 [facility] Comment on above: Performed By: #### 2 872079 #### LUIS MANUEL Rem[employer] [address] [place] [address] Potassium [Moles/Vol] 3.7 mmol/L Normal 3.5-5.3 [facility] Comment on above: Performed By: #### 2 602929 #### LUIS MANUEL [employer] [address] [place] [address] Protein [Mass/Vol] 5.6 g/dL Low 6.4-8.2 [facility] Comment on above: Performed By: #### 2 872009 #### LUIS MANUEL Rem[employer] [address] [place] [address] Sodium [Moles/Vol] 139 mmol/L Normal 136-145 [facility] Comment on above: Performed By: #### 2 975363 #### LUIS MANUEL [employer] [address] [place] [address] Urea nitrogen [Mass/Vol] 21 mg/dL Normal 6-[address] [facility] Comment on above: Performed By: #### 2 668894 #### LUIS MANUEL [employer] [address] [place] [address] Urea nitrogen/Creatinine [Mass ratio] 26.2 ratio Normal 5.4-30.[address] [facility] Comment on above: Performed By: #### 2 336642 #### LUIS MANUEL [employer] [address] [place] [address] Anion gap [Moles/Vol] 10 mmol/L Normal 10-20 [facility] Comment on above: Performed By: #### 2 225361 #### LUIS MANUEL Rem[employer] [address] [place] [address] LDL Directon 09-09-2018 Cholesterol in LDL [Mass/Vol] 106 mg/dL Normal 0-[address] [facility] Comment on above: Performed By: #### 2 833588 #### LUIS MANUEL RemHemo [address] [place] [address] eGFRon 09-09-2018 GFR/1.73 sq M predicted among non-blacks MDRD (S/P/Bld) [Vol rate/Area] mL/min/{1.73_m2} Normal [facility] Comment on above: Order Comment: Order added by Discern Expert. Performed By: #### 1 [id number] #### LUIS MANUEL [employer] [address] [place] [address] Auto Diffon 08-30-2018 Basophils (Bld) [#/Vol] 0.1 E3/mcL Normal 0.0-0.[address] [facility] Comment on above: Order Comment: Order Added by Discern Expert. Performed By: #### 2 192860 #### LUIS MANUEL RemHemo [address] [place] [address] Basophils/100 WBC (Bld) 0.8 % Normal 0.0-2.[address] [facility] Comment on above: Order Comment: Order Added by Discern Expert. Performed By: #### 2 094585 #### LUIS MANUEL RemHemo [address] [place] [address] Eos Absolute 0.2 E3/mcL Normal 0.0-0.[address] [facility] Comment on above: Order Comment: Order Added by Discern Expert. Performed By: #### 2 347083 #### LUIS MANUEL RemHemo [address] [place] [address] Eosinophils/100 WBC (Bld) 2.6 % Normal 0.0-11.[address] [facility] Comment on above: Order Comment: Order Added by Discern Expert. Performed By: #### 2 774500 #### LUIS MANUEL RemHemo [address] [place] [address] Lymphocytes (Bld) [#/Vol] 1.3 E3/mcL Normal 1.2-3.[address] [facility] Comment on above: Order Comment: Order Added by Discern Expert. Performed By: #### 2 874686 #### LUIS MANUEL RemHemo [address] [place] [address] Lymphocytes/100 WBC (Bld) 17.4 % Low 20.0-55.[address] [facility] Comment on above: Order Comment: Order Added by Discern Expert. Performed By: #### 2 192115 #### LUIS MANUEL BoyerHemo [address] [place] [address] Sebastian Absolute 0.7 E3/mcL Normal 0.0-0.[address] [facility] Comment on above: Order Comment: Order Added by Discern Expert. Performed By: #### 2 388908 #### LUIS MANUEL BoyerHemo [address] [place] [address] Monocytes/100 WBC (Bld) 9.2 % Normal 0.0-10.[address] [facility] Comment on above: Order Comment: Order Added by Discern Expert. Performed By: #### 2 851717 #### LUIS MANUEL BoyerHemo [address] [place] [address] Neutro Absolute 5.2 E3/mcL Normal 1.4-6.[address] [facility] Comment on above: Order Comment: Order Added by Discern Expert. Performed By: #### 2 613332 #### LUIS MANUEL BoyerHemo [address] [place], [place] [address] Neutro Auto 70.0 % Normal 37.0-75.[address] [facility] Comment on above: Order Comment: Order Added by Discern Expert. Performed By: #### 2 142516 #### LUIS MANUEL BoyerHemo [address] [place] [address] CBC w/ Auto Diffon 8 Erythrocyte distribution width (RBC) [Ratio] 14.0 % Normal 11.5-14.[address] [facility] Comment on above: Performed By: #### 2 676736 #### LUIS MANUEL BoyerHemo [address] [place] [address] Hematocrit (Bld) [Volume fraction] 40.9 % Low 42.0-52.[address] [facility] Comment on above: Performed By: #### 2 547417 #### LUIS MANUEL BoyerHemo [address] [place] [address] Hemoglobin (Bld) [Mass/Vol] 13.9 g/dL Normal 13.5-18.[address] [facility] Comment on above: Performed By: #### 2 448823 #### LUIS MANUEL BoyerHemo [address] [place] [address] MCH (RBC) [Entitic mass] 34.0 pg High 27.0-31.[address] [facility] Comment on above: Performed By: #### 2 198258 #### LUIS MANUEL RemHemo [address] [place] [address] MCHC (RBC) [Mass/Vol] 33.9 g/dL Normal 33.0-37.0 [facility] Comment on above: Performed By: #### 2 534502 #### LUIS MANUEL RemHemo [address] [place] [address] MCV (RBC) [Entitic vol] 100.3 fL High 78.0-100.[address] [facility] Comment on above: Performed By: #### 2 134392 #### LUIS MANUEL RemHemo [facility] [place] [address] Platelet mean volume (Bld) [Entitic vol] 7.9 fL Normal 7.4-11.[address] [facility] Comment on above: Performed By: #### 2 877610 #### LUIS MANUEL RemHemo [address] [place] [address] Platelets (Bld) [#/Vol] 247 E3/mcL Normal 130-[address] [facility] Comment on above: Performed By: #### 2 847587 #### LUIS MANUEL RemHemo [facility] [place] [address] RBC (Bld) [#/Vol] 4.08 E6/mcL Normal 3.90-6.10 [facility] Comment on above: Performed By: #### 2 931304 #### LUIS MANUEL RemHemo [address] [place] [address] WBC (Bld) [#/Vol] 7.4 E3/mcL Normal 3.6-11.0 [facility] Comment on above: Performed By: #### 2 742207 #### LUIS MANUEL RemHemo [address] [place] [address] CMPon 08-30-2018 Albumin [Mass/Vol] 3.9 g/dL Normal 3.4-5.0 [facility] Comment on above: Performed By: #### 2 011153 #### LUIS MANUEL Rem[employer] [address] [place] [address] Albumin/Globulin [Mass ratio] 2.4 {ratio} High 1.1-1.[address] [facility] Comment on above: Performed By: #### 2 684953 #### LUIS MANUEL [employer]er[employer] [address] [place] [address] Alk Phos 64 Int._Unit/L Normal 33-[address] [facility] Comment on above: Performed By: #### 2 508239 #### LUIS MANUEL Rem[employer] [address] [place] [address] ALT [Catalytic activity/Vol] 20 Int._Unit/L Normal 10-[address] [facility] Comment on above: Performed By: #### 2 258775 #### LUIS MANUEL [employer] [address] [place] [address] Anion gap [Moles/Vol] 9 mmol/L Low 10-20 [facility] Comment on above: Performed By: #### 2 439352 #### LUIS MANUELReji [employer]erQ[employer] [address] [place] [address] AST [Catalytic activity/Vol] 20 Int._Unit/L Normal 9-[address] [facility] Comment on above: Performed By: #### 2 185095 #### LUIS MANUEL [employer] [address] [place] [address] Bili Total 0.8 mg/dL Normal 0.0-1.[address] [facility] Comment on above: Performed By: #### 2 378604 #### LUIS MANUELReji [employer]erQ[employer] [address] [place] [address] Calcium [Mass/Vol] 8.8 mg/dL Normal 8.6-10.3 [facility] Comment on above: Performed By: #### 2 386405 #### LUIS MANUEL [employer] [address] [place] [address] Chloride [Moles/Vol] 107 mmol/L Normal 98-107 [facility] Comment on above: Performed By: #### 2 640572 #### LUIS MANUEL Rem[employer] [address] [place] [address] CO2 [Moles/Vol] 27.0 mmol/L Normal 21.0-32.0 [facility] Comment on above: Performed By: #### 2 726594 #### [facility] [employer] [address] [place] [address] Creatinine [Mass/Vol] 0.8 mg/dL Normal 0.5-1.3 [facility] Comment on above: Performed By: #### 2 231636 #### LUIS MANUEL [employer] [address] [place] [address] Globulin (S) [Mass/Vol] 2.0 g/dL Normal 2.0-4.[address] [facility] Comment on above: Performed By: #### 2 854923 #### LUIS MANUEL [employer] [address] [place] [address] Glucose [Mass/Vol] 88 mg/dL Normal 70-99 [facility] Comment on above: Performed By: #### 2 153826 #### LUIS MANUEL Stein [facility] [place] [address] Potassium [Moles/Vol] 3.9 mmol/L Normal 3.5-5.3 [facility] Comment on above: Performed By: #### 2 665685 #### LUIS MANUEL [employer] [facility] [place] [address] Protein [Mass/Vol] 5.5 g/dL Low 6.4-8.2 [facility] Comment on above: Performed By: #### 2 679396 #### LUIS MANUEL [employer] [facility] [place] [address] Sodium [Moles/Vol] 139 mmol/L Normal 136-145 [facility] Comment on above: Performed By: #### 2 038745 #### LUIS MANUEL [employer]er[employer] [facility] [place] [address] Urea nitrogen [Mass/Vol] 22 mg/dL Normal 6-[address] [facility] Comment on above: Performed By: #### 2 336241 #### LUIS MANUEL [employer] [address] [place] [address] Urea nitrogen/Creatinine [Mass ratio] 27.5 ratio Normal 5.4-30.[address] [facility] Comment on above: Performed By: #### 2 280935 #### LUIS MANUEL [employer] [address] [place] [address] eGFRon 08-30-2018 GFR/1.73 sq M predicted among non-blacks MDRD (S/P/Bld) [Vol rate/Area] mL/min/{1.73_m2} Normal [facility] Comment on above: Order Comment: Order added by Discern Expert. Performed By: #### 1 [id number] #### LUIS MANUEL [employer] [address] [place] [address] Auto Diffon 05-31-2018 Basophils (Bld) [#/Vol] 0.0 E3/mcL Normal 0.0-0.[address] [facility] Comment on above: Order Comment: Order Added by Discern Expert. Performed By: #### 2 546209 #### LUIS MANUEL RemHemo [address] [place] [address] Basophils/100 WBC (Bld) 0.6 % Normal 0.0-2.[address] [facility] Comment on above: Order Comment: Order Added by Discern Expert. Performed By: #### 2 866833 #### LUIS MANUEL RemHemo [address] [place] [address] Eos Absolute 0.2 E3/mcL Normal 0.0-0.[address] [facility] Comment on above: Order Comment: Order Added by Discern Expert. Performed By: #### 2 032522 #### LUIS MANUEL RemHemo [address] [place] [address] Eosinophils/100 WBC (Bld) 2.6 % Normal 0.0-11.[address] [facility] Comment on above: Order Comment: Order Added by Discern Expert. Performed By: #### 2 335412 #### LUIS MANUEL RemHemo [address] [place] [address] Lymphocytes (Bld) [#/Vol] 1.5 E3/mcL Normal 1.2-3.[address] [facility] Comment on above: Order Comment: Order Added by Discern Expert. Performed By: #### 2 526947 #### LUIS MANUEL RemHemo [address] [place] [address] Lymphocytes/100 WBC (Bld) 19.5 % Low 20.0-55.[address] [facility] Comment on above: Order Comment: Order Added by Discern Expert. Performed By: #### 2 899922 #### LUIS MANUEL RemHemo [address] [place] [address] Sebastian Absolute 0.6 E3/mcL Normal 0.0-0.[address] [facility] Comment on above: Order Comment: Order Added by Discern Expert. Performed By: #### 2 904170 #### LUIS MANUEL Bedollao [facility] [place] [address] Monocytes/100 WBC (Bld) 8.2 % Normal 0.0-10.[address] [facility] Comment on above: Order Comment: Order Added by Discern Expert. Performed By: #### 2 662071 #### LUIS MANUEL Bedollao [address] [place], [place] [address] Neutro Absolute 5.4 E3/mcL Normal 1.4-6.[address] [facility] Comment on above: Order Comment: Order Added by Discern Expert. Performed By: #### 2 726575 #### LUIS MANUEL [place] [address] Neutro Auto 69.1 % Normal 37.0-75.[address] [facility] Comment on above: Order Comment: Order Added by Discern Expert. Performed By: #### 2 539697 #### LUIS MANUEL Bedollao [address] [place], [place] [address] CBC w/ Auto Diffon 8 Erythrocyte distribution width (RBC) [Ratio] 13.2 % Normal 11.5-14.[address] [facility] Comment on above: Performed By: #### 2 614683 #### LUIS MANUEL Bedollao [address] [place] [address] Hematocrit (Bld) [Volume fraction] 41.1 % Low 42.0-52.[address] [facility] Comment on above: Performed By: #### 2 751507 #### LUIS MANUEL Bedollao [address] [place] [address] Hemoglobin (Bld) [Mass/Vol] 14.0 g/dL Normal 13.5-18.[address] [facility] Comment on above: Performed By: #### 2 393302 #### LUIS MANUEL Bedollao [address] [place] [address] MCH (RBC) [Entitic mass] 34.4 pg High 27.0-31.[address] [facility] Comment on above: Performed By: #### 2 819405 #### LUIS MANUEL RemHemo [address] [place] [address] [place] [address] MCHC (RBC) [Mass/Vol] 34.2 g/dL Normal 33.0-37.0 [facility] Comment on above: Performed By: #### 2 261779 #### LUIS MANUEL RemHemo [address] [place] [address] MCV (RBC) [Entitic vol] 100.5 fL High 78.0-100.[address] [facility] Comment on above: Performed By: #### 2 384800 #### LUIS MANUEL RemHemo [address] [place] [address] Platelet mean volume (Bld) [Entitic vol] 8.2 fL Normal 7.4-11.[address] [facility] Comment on above: Performed By: #### 2 280226 #### LUIS MANUEL BoyerHemo [facility] [place] [address] Platelets (Bld) [#/Vol] 247 E3/mcL Normal 130-[address] [facility] Comment on above: Performed By: #### 2 724195 #### LUIS MANUEL BoyerHemo [facility] [place] [address] RBC (Bld) [#/Vol] 4.08 E6/mcL Normal 3.90-6.10 [facility] Comment on above: Performed By: #### 2 519378 #### LUIS MANUEL BoyerHemo [facility] [place] [address] WBC (Bld) [#/Vol] 7.9 E3/mcL Normal 3.6-11.0 [facility] Comment on above: Performed By: #### 2 949393 #### LUIS MANUEL RemHemo [address] [place] [address] CMPon 05-31-2018 Albumin [Mass/Vol] 3.7 g/dL Normal 3.2-5.0 [facility] Comment on above: Performed By: #### 2 198220 #### LUIS MANUEL [employer] [address] [place] [address] Albumin/Globulin [Mass ratio] 1.6 {ratio} Normal 1.1-1.[address] [facility] Comment on above: Performed By: #### 2 192530 #### LUIS MANUEL [employer]er[employer] [facility] [place] [address] Alk Phos 57 Int._Unit/L Normal 42-[address] [facility] Comment on above: Performed By: #### 2 530026 #### LUIS MANUELReji [employer]er[employer] [address] [place] [address] ALT [Catalytic activity/Vol] 29 Int._Unit/L Normal 10-[address] [facility] Comment on above: Performed By: #### 2 671345 #### LUIS MANUEL [employer] [address] [place] [address] AST [Catalytic activity/Vol] 25 Int._Unit/L Normal 10-[address] [facility] Comment on above: Performed By: #### 2 251859 #### LUIS MANUELReji [address] [address] Bili Total 1.0 mg/dL Normal 0.2-1.[address] [facility] Comment on above: Performed By: #### 2 466986 #### LUIS MANUEL [employer] [address] [place] [address] Calcium [Mass/Vol] 8.9 mg/dL Normal 8.4-10.2 [facility] Comment on above: Performed By: #### 2 113110 #### LUIS MANUEL [employer] [address] [place] [address] Chloride [Moles/Vol] 105 mmol/L Normal 98-107 [facility] Comment on above: Performed By: #### 2 663066 #### [facility] [employer] [facility] [place] [address] CO2 [Moles/Vol] 24.6 mmol/L Normal 24.0-30.0 [facility] Comment on above: Performed By: #### 2 274492 #### LUIS MANUEL [employer] [address] [place] [address] Creatinine [Mass/Vol] 0.8 mg/dL Normal 0.6-1.3 [facility] Comment on above: Performed By: #### 2 237441 #### LUIS MANUEL [employer] [address] [place] [address] Globulin (S) [Mass/Vol] 2.3 g/dL Normal 2.0-4.0 [facility] Comment on above: Performed By: #### 2 260211 #### LUIS MANUEL [employer] [address] [place] [address] Glucose [Mass/Vol] 92 mg/dL Normal 70-99 [facility] Comment on above: Performed By: #### 2 390892 #### LUIS MANUEL [employer] [address] [place] [address] Potassium [Moles/Vol] 3.5 mmol/L Normal 3.5-5.1 [facility] Comment on above: Performed By: #### 2 897495 #### LUIS MANUEL [employer] [address] [place] [address] Protein [Mass/Vol] 6.0 g/dL Low 6.4-8.3 [facility] Comment on above: Performed By: #### 2 107025 #### LUIS MANUEL [employer] [address] [place] [address] Sodium [Moles/Vol] 139 mmol/L Normal 136-145 [facility] Comment on above: Performed By: #### 2 044065 #### LUIS MANUEL [employer] [facility] [place] [address] Urea nitrogen [Mass/Vol] 23 mg/dL High 7-[address] [facility] Comment on above: Performed By: #### 2 667321 #### LUIS MANUEL [employer] [address] [place] [address] Urea nitrogen/Creatinine [Mass ratio] 28.8 ratio Normal 5.4-30.[address] [facility] Comment on above: Performed By: #### 2 048563 #### LUIS MANUEL Stein [facility] [place] [address] eGFRon 05-31-2018 GFR/1.73 sq M predicted among non-blacks MDRD (S/P/Bld) [Vol rate/Area] mL/min/{1.73_m2} Normal [facility] Comment on above: Order Comment: Order added by Discern Expert. Performed By: #### 1 [id number] #### LUIS MANUEL [employer] [address] [place] [address] No Panel Information [facility] Vital Signs Date Time Vital Sign Value Performing Clinician Facility 05-20-2025 13:00-0400 Heart rate 81 /min Carri Greer MD Work Phone: [facility] 05-20-2025 13:00-0400 SaO2% (BldA) [Mass fraction] 89 % Carri Greer MD Work Phone: [facility] 05-20-2025 12:45-0400 Body temperature 97.7 [degF] Carri Greer MD Work Phone: [facility] 05-20-2025 12:45-0400 Diastolic blood pressure 78 mm[Hg] Carri Greer MD Work Phone: [facility] 05-20-2025 12:45-0400 Respiratory rate 16 /min Carri Greer MD Work Phone: [facility] 05-20-2025 12:45-0400 Systolic blood pressure 149 mm[Hg] Carri Greer MD Work Phone: [facility] 05-10-2025 21:57-0400 Body height 167.6 cm Carri Greer MD Work Phone: [facility] 05-10-2025 21:57-0400 Body mass index (BMI) [Ratio] 23.57 kg/m2 Carri Greer MD Work Phone: [facility] 05-10-2025 21:57-0400 Body weight 66.22 kg Carri Greer MD Work Phone: [facility] 05-10-2025 20:16-0400 Diastolic blood pressure 57 mm[Hg] Santiago Menendez DO Work Phone: [facility] 05-10-2025 20:16-0400 Heart rate 85 /min Santiago Menendez DO Work Phone: [facility] 05-10-2025 20:16-0400 Respiratory rate 16 /min Santiago Menendez DO Work Phone: [facility] 05-10-2025 20:16-0400 SaO2% (BldA) [Mass fraction] 93 % Santiago Menendez DO Work Phone: [facility] 05-10-2025 20:16-0400 Systolic blood pressure 108 mm[Hg] Santiago Menendez DO Work Phone: [facility] 05-10-2025 13:56-0400 Body height 167.6 cm Santiago Menendez DO Work Phone: [facility] 05-10-2025 13:56-0400 Body mass index (BMI) [Ratio] 23.57 kg/m2 Santiago Menendez DO Work Phone: [facility] 05-10-2025 13:56-0400 Body temperature 97.9 [degF] Santiago Menendez DO Work Phone: [facility] 05-10-2025 13:56-0400 Body weight 66.22 kg Santiago Menendez DO Work Phone: [facility] 05-07-2025 15:22-0400 Body height 167.6 cm Don Barrera MD Work Phone: [facility] 05-07-2025 15:22-0400 Body mass index (BMI) [Ratio] 23.6 kg/m2 Don Barrera MD Work Phone: [facility] 05-07-2025 15:22-0400 Body weight 66.32 kg Don Barrera MD Work Phone: [facility] 05-07-2025 15:22-0400 Diastolic blood pressure 70 mm[Hg] Don Barrera MD Work Phone: [facility] 05-07-2025 15:22-0400 Heart rate 71 /min Don Barrera MD Work Phone: [facility] 05-07-2025 15:22-0400 SaO2% (BldA) [Mass fraction] 95 % Don Barrera MD Work Phone: [facility] [facility] 05-07-2025 15:22-0400 Systolic blood pressure 120 mm[Hg] Don Barrera MD Work Phone: [facility] 04-10-2025 11:09-0400 Body height 167.6 cm Lincoln Christine COLLECTIONS CLERK-STEEL HANDLER Work Phone: [facility] 04-10-2025 11:09-0400 Body mass index (BMI) [Ratio] 24.37 kg/m2 Lincoln Christine COLLECTIONS CLERK-STEEL HANDLER Work Phone: [facility] 04-10-2025 11:09-0400 Body temperature 97.59 [degF] Lincoln Christine COLLECTIONS CLERK-STEEL HANDLER Work Phone: [facility] 04-10-2025 11:09-0400 Body weight 68.49 kg Lincoln Christine COLLECTIONS CLERK-STEEL HANDLER Work Phone: [facility] 04-10-2025 11:09-0400 Diastolic blood pressure 79 mm[Hg] Lincoln Christine COLLECTIONS CLERK-STEEL HANDLER Work Phone: [facility] 04-10-2025 11:09-0400 SaO2% (BldA) [Mass fraction] 97 % Lincoln Christine COLLECTIONS CLERK-STEEL HANDLER Work Phone: [facility] 04-10-2025 11:09-0400 Systolic blood pressure 144 mm[Hg] Lincoln Christine COLLECTIONS CLERK-STEEL HANDLER Work Phone: [facility] 04-10-2025 07:57-0400 Body temperature 97.7 [degF] Eladio Kingsley Jr. DPM Work Phone: [facility] 04-10-2025 07:57-0400 Diastolic blood pressure 74 mm[Hg] Eladio Kingsley Jr. DPM Work Phone: [facility] 04-10-2025 07:57-0400 Heart rate 59 /min Eladio Kingsley Jr. DPM Work Phone: [facility] 04-10-2025 07:57-0400 Systolic blood pressure 125 mm[Hg] Eladio Acevedoboni Mendoza., DPM Work Phone: [facility] 01-09-2025 08:09-0400 Body temperature 97.59 [degF] Eladio Hallyesi Mendoza., DPM Work Phone: [facility] 01-09-2025 08:09-0400 Diastolic blood pressure 72 mm[Hg] Eladio Acevedoboni Mendoza., DPM Work Phone: [facility] 01-09-2025 08:09-0400 Heart rate 60 /min Eladio Acevedoboni Mendoza., DPM Work Phone: [facility] 01-09-2025 08:09-0400 Systolic blood pressure 127 mm[Hg] Eladio Acevedoboni Mendoza., DPM Work Phone: [facility] 11-20-2024 07:59-0500 Body height 167.6 cm Don Barrera MD Work Phone: [facility] 11-20-2024 07:59-0500 Body mass index (BMI) [Ratio] 24.66 kg/m2 Don Barrera MD Work Phone: [facility] 11-20-2024 07:59-0500 Body weight 69.31 kg Don Barrera MD Work Phone: [facility] 11-20-2024 07:59-0500 Diastolic blood pressure 70 mm[Hg] Don Barrera MD Work Phone: [facility] 11-20-2024 07:59-0500 Heart rate 65 /min Don Barrera MD Work Phone: [facility] 11-20-2024 07:59-0500 SaO2% (BldA) [Mass fraction] 99 % Don Barrera MD Work Phone: [facility] 11-20-2024 07:59-0500 Systolic blood pressure 110 mm[Hg] Don Barrera MD Work Phone: [facility] 10-01-2024 08:02-0500 Diastolic blood pressure 73 mm[Hg] Eladiohailey Kingsley Jr., DPM Work Phone: [facility] 10-01-2024 08:02-0500 Heart rate 59 /min Eladio Sancho Ibarra, DPM Work Phone: [facility] 10-01-2024 08:02-0500 Systolic blood pressure 135 mm[Hg] Eladio Sancho Ibarra, DPM Work Phone: [facility] 10-01-2024 07:58-0500 Body temperature 98.2 [degF] Eladio Sancho Mendoza., DPM Work Phone: [facility] 09-01-2024 11:43-0500 Body height 167.6 cm Don Barrera MD Work Phone: [facility] 09-01-2024 11:43-0500 Body mass index (BMI) [Ratio] 24.31 kg/m2 Don Barrera MD Work Phone: [facility] 09-01-2024 11:43-0500 Body weight 68.31 kg Don Barrera MD Work Phone: [facility] 09-01-2024 11:43-0500 Diastolic blood pressure 80 mm[Hg] Don Barrera MD Work Phone: [facility] 09-01-2024 11:43-0500 Heart rate 139 /min Don Barrera MD Work Phone: [facility] 09-01-2024 11:43-0500 SaO2% (BldA) [Mass fraction] 96 % Don Barrera MD Work Phone: [facility] 09-01-2024 11:43-0500 Systolic blood pressure 150 mm[Hg] Don Barrera MD Work Phone: [facility] 07-03-2024 11:57-0400 Body height 167.6 cm Otoniel Salcedo MD Work Phone: [facility] 07-03-2024 11:57-0400 Body mass index (BMI) [Ratio] 24.16 kg/m2 Otoniel Salcedo MD Work Phone: [facility] 07-03-2024 11:57-0400 Body weight 67.9 kg Otoniel Salcedo MD Work Phone: [facility] 07-03-2024 11:57-0400 Diastolic blood pressure 62 mm[Hg] Otoniel Salcedo MD Work Phone: [facility] 07-03-2024 11:57-0400 Heart rate 63 /min Otoniel Salcedo MD Work Phone: [facility] 07-03-2024 11:57-0400 SaO2% (BldA) [Mass fraction] 96 % Otoniel Salcedo MD Work Phone: [facility] 07-03-2024 11:57-0400 Systolic blood pressure 126 mm[Hg] Otoniel Salcedo MD Work Phone: [facility] 06-06-2024 07:58-0400 Body temperature 97.9 [degF] Eladio Kingsley Jr., DPM Work Phone: [facility] 06-06-2024 07:58-0400 Diastolic blood pressure 63 mm[Hg] Eladio Kingsley Jr., DPM Work Phone: [facility] 06-06-2024 07:58-0400 Heart rate 71 /min Eladio Kingsley Jr., DPM Work Phone: [facility] 06-06-2024 07:58-0400 Systolic blood pressure 105 mm[Hg] Eladio Kingsley Jr., DPM Work Phone: [facility] 02-29-2024 07:59-0400 Body temperature 97.2 [degF] Eladio Sancho Jr., DPM Work Phone: [facility] 02-29-2024 07:59-0400 Diastolic blood pressure 80 mm[Hg] Eladio Kingsley ., DPM Work Phone: [facility] 02-29-2024 07:59-0400 Heart rate 64 /min Eladio Kingsley ., DPM Work Phone: [facility] 02-29-2024 07:59-0400 Systolic blood pressure 144 mm[Hg] Eladio Kingsley ., DPM Work Phone: [facility] 02-12-2024 09:13-0400 Body mass index (BMI) [Ratio] 24.29 kg/m2 Sage Kwon MD Work Phone: [facility] 02-12-2024 09:13-0400 Body weight 68.27 kg Sage Kwon MD Work Phone: [facility] 02-12-2024 09:13-0400 Diastolic blood pressure 73 mm[Hg] Sage Kwon MD Work Phone: [facility] 02-12-2024 09:13-0400 Heart rate 70 /min Sage Kwon MD Work Phone: [facility] 02-12-2024 09:13-0400 Respiratory rate 16 /min Sage Kwon MD Work Phone: [facility] 02-12-2024 09:13-0400 SaO2% (BldA) [Mass fraction] 97 % Sage Kwon MD Work Phone: [facility] 02-12-2024 09:13-0400 Systolic blood pressure 138 mm[Hg] Sage Kwon MD Work Phone: [facility] 12-07-2023 13:00-0500 Diastolic blood pressure 58 mm[Hg] Celso Cabezas DO Work Phone: [facility] 12-07-2023 13:00-0500 Heart rate 73 /min Celso Cabezas DO Work Phone: [facility] 12-07-2023 13:00-0500 Respiratory rate 18 /min Celso Cabezas DO Work Phone: [facility] 12-07-2023 13:00-0500 SaO2% (BldA) [Mass fraction] 97 % Celso Cabezas DO Work Phone: [facility] 12-07-2023 13:00-0500 Systolic blood pressure 118 mm[Hg] Celso Cabezas DO Work Phone: [facility] 12-07-2023 10:01-0500 Body height 167.6 cm Celso Cabezas DO Work Phone: [facility] 12-07-2023 10:01-0500 Body mass index (BMI) [Ratio] 29.05 kg/m2 Celso Cabezas DO Work Phone: [facility] 12-07-2023 10:01-0500 Body temperature 96.91 [degF] Celso Cabezas DO Work Phone: [facility] 12-07-2023 10:01-0500 Body weight 81.65 kg Celso Cabezas DO Work Phone: [facility] 11-30-2023 07:59-0500 Body temperature 98.29 [degF] Eladio Kingsley Jr., DPM Work Phone: [facility] 11-30-2023 07:59-0500 Diastolic blood pressure 73 mm[Hg] Eladio Kingsley Jr., DPM Work Phone: [facility] 11-30-2023 07:59-0500 Heart rate 68 /min Eladio Kingsley Jr., DPM Work Phone: [facility] 11-30-2023 07:59-0500 Systolic blood pressure 125 mm[Hg] Eladio Kingsley Jr., DPM Work Phone: [facility] 11-15-2023 19:43-0500 Diastolic blood pressure 60 mm[Hg] Celso Cabezas DO Work Phone: [facility] 11-15-2023 19:43-0500 Heart rate 70 /min Celso Cabezas DO Work Phone: [facility] 11-15-2023 19:43-0500 Respiratory rate 16 /min Celso Cabezas DO Work Phone: [facility] 11-15-2023 19:43-0500 SaO2% (BldA) [Mass fraction] 98 % Celso Cabezas DO Work Phone: [facility] 11-15-2023 19:43-0500 Systolic blood pressure 157 mm[Hg] Celso Cabezas DO Work Phone: [facility] 11-15-2023 15:58-0500 Body height 167.6 cm Celso Cabezas DO Work Phone: [facility] 11-15-2023 15:58-0500 Body mass index (BMI) [Ratio] 25.18 kg/m2 Celso Cabezas DO Work Phone: [facility] 11-15-2023 15:58-0500 Body weight 70.76 kg Celso Cabezas DO Work Phone: [facility] 11-15-2023 15:56-0500 Body temperature 97.39 [degF] Celso Cabezas DO Work Phone: [facility] 11-15-2023 08:13-0500 Body height 167.6 cm Daysi Arenas DO Work Phone: [facility] 11-15-2023 08:13-0500 Body mass index (BMI) [Ratio] 25.24 kg/m2 Daysi Thomae DO Work Phone: [facility] 11-15-2023 08:13-0500 Body weight 70.94 kg Daysi Thomae DO Work Phone: [facility] 11-11-2023 22:23-0500 Diastolic blood pressure 69 mm[Hg] Sai Myers MD Work Phone: [facility] 11-11-2023 22:23-0500 Heart rate 88 /min Sai Myers MD Work Phone: [facility] 11-11-2023 22:23-0500 Respiratory rate 16 /min Sai Myers MD Work Phone: [facility] 11-11-2023 22:23-0500 Systolic blood pressure 162 mm[Hg] Sai Myers MD Work Phone: [facility] 11-11-2023 20:45-0500 Body height 167.6 cm Sai Myers MD Work Phone: [facility] 11-11-2023 20:45-0500 Body mass index (BMI) [Ratio] 25.82 kg/m2 Sai Myers MD Work Phone: [facility] 11-11-2023 20:45-0500 Body temperature 97.7 [degF] Sai Myers MD Work Phone: [facility] 11-11-2023 20:45-0500 Body weight 72.58 kg Sai Myers MD Work Phone: [facility] 11-11-2023 20:45-0500 SaO2% (BldA) [Mass fraction] 97 % Sai Myers MD Work Phone: [facility] 11-05-2023 08:06-0500 Body height 167.6 cm Don Barrera MD Work Phone: [facility] 11-05-2023 08:06-0500 Body mass index (BMI) [Ratio] 25.24 kg/m2 Don Barrera MD Work Phone: [facility] 11-05-2023 08:06-0500 Body weight 70.94 kg Don Barrera MD Work Phone: [facility] 11-05-2023 08:06-0500 Diastolic blood pressure 62 mm[Hg] Don Barrera MD Work Phone: [facility] 11-05-2023 08:06-0500 Heart rate 65 /min Don Barrera MD Work Phone: [facility] 11-05-2023 08:06-0500 SaO2% (BldA) [Mass fraction] 99 % Don Barrera MD Work Phone: [facility] 11-05-2023 08:06-0500 Systolic blood pressure 130 mm[Hg] Don Barrera MD Work Phone: [facility] 11-01-2023 13:09-0500 Body height 167.6 cm Daysi Arenas DO Work Phone: [facility] 11-01-2023 13:09-0500 Body mass index (BMI) [Ratio] 25.6 kg/m2 Daysi Castorenaae DO Work Phone: [facility] 11-01-2023 13:09-0500 Body weight 71.94 kg Daysi Raffaeleae DO Work Phone: [facility] 10-31-2023 07:58-0500 Body temperature 97.9 [degF] Eladio Kingsley Jr., DPM Work Phone: [facility] 10-31-2023 07:58-0500 Diastolic blood pressure 69 mm[Hg] Eladio Kingsley Jr., DPM Work Phone: [facility] 10-31-2023 07:58-0500 Heart rate 67 /min Eladio Kingsley Jr., DPM Work Phone: [facility] 10-31-2023 07:58-0500 Systolic blood pressure 116 mm[Hg] Eladio Kingsley Jr., DPM Work Phone: [facility] 10-24-2023 08:43-0500 Diastolic blood pressure 77 mm[Hg] Eladio Kingsley Jr., DPM Work Phone: [facility] 10-24-2023 08:43-0500 Heart rate 58 /min Eladio Sancho Jr., DPM Work Phone: [facility] 10-24-2023 08:43-0500 Systolic blood pressure 148 mm[Hg] Eladio Sancho Jr., DPM Work Phone: [facility] 10-24-2023 08:27-0500 Body temperature 98.2 [degF] Eladio Sancho Jr., DPM Work Phone: [facility] 10-12-2023 08:07-0500 Diastolic blood pressure 75 mm[Hg] Eladio Sancho Jr., DPM Work Phone: [facility] 10-12-2023 08:07-0500 Heart rate 65 /min Eladio Sancho Jr., DPM Work Phone: [facility] 10-12-2023 08:07-0500 Systolic blood pressure 148 mm[Hg] Eladio Sancho Jr., DPM Work Phone: [facility] 10-12-2023 08:01-0500 Body temperature 98.2 [degF] Eladio Sancho Jr., DPM Work Phone: [facility] 10-06-2023 12:15-0500 Body height 167.6 cm Clark OROZCO-C Work Phone: [facility] 10-06-2023 12:15-0500 Body mass index (BMI) [Ratio] 25.66 kg/m2 Clark Lees PA-C Work Phone: [facility] 10-06-2023 12:15-0500 Body temperature 97.39 [degF] Clark Lees PA-C Work Phone: [facility] 10-06-2023 12:15-0500 Body weight 72.12 kg Clark OROZCO-C Work Phone: [facility] 10-06-2023 12:15-0500 Diastolic blood pressure 83 mm[Hg] Clark Nabeel PA-C Work Phone: [facility] 10-06-2023 12:15-0500 Heart rate 72 /min Clark Nabeel PA-C Work Phone: [facility] 10-06-2023 12:15-0500 Respiratory rate 14 /min Clark Nabeel PA-C Work Phone: [facility] 10-06-2023 12:15-0500 SaO2% (BldA) [Mass fraction] 96 % Clark Nabeel PA-C Work Phone: [facility] 10-06-2023 12:15-0500 Systolic blood pressure 173 mm[Hg] Clark Nabeel PA-C Work Phone: [facility] 09-28-2023 14:21-0500 Body height 167.6 cm Don Barrera MD Work Phone: [facility] 09-28-2023 14:21-0500 Body mass index (BMI) [Ratio] 25.66 kg/m2 Don Barrear MD Work Phone: [facility] 09-28-2023 14:21-0500 Body weight 72.12 kg Don Barrera MD Work Phone: [facility] 09-28-2023 14:21-0500 Diastolic blood pressure 66 mm[Hg] Don Barrera MD Work Phone: [facility] 09-28-2023 14:21-0500 Heart rate 78 /min Don Barrera MD Work Phone: [facility] 09-28-2023 14:21-0500 SaO2% (BldA) [Mass fraction] 96 % Don Barrera MD Work Phone: [facility] 09-28-2023 14:21-0500 Systolic blood pressure 120 mm[Hg] Don Barrera MD Work Phone: [facility] 07-23-2023 01:01-0400 Diastolic blood pressure 76 mm[Hg] Sai Myers MD Work Phone: [facility] 07-23-2023 01:01-0400 Heart rate 60 /min Sai Myers MD Work Phone: [facility] 07-23-2023 01:01-0400 Respiratory rate 16 /min Sai Myers MD Work Phone: [facility] 07-23-2023 01:01-0400 SaO2% (BldA) [Mass fraction] 94 % Sai Myers MD Work Phone: [facility] 07-23-2023 01:01-0400 Systolic blood pressure 146 mm[Hg] Sai Myers MD Work Phone: [facility] 07-22-2023 21:49-0400 Body height 167.6 cm Sai Myers MD Work Phone: [facility] 07-22-2023 21:49-0400 Body mass index (BMI) [Ratio] 25.82 kg/m2 Sai Myers MD Work Phone: [facility] 07-22-2023 21:49-0400 Body temperature 97.7 [degF] Sai Myers MD Work Phone: [facility] 07-22-2023 21:49-0400 Body weight 72.58 kg Sai Myers MD Work Phone: [facility] 06-21-2023 08:29-0400 Body height 165.1 cm Don Barrera Work Phone: OK-Zvtkaaydsy-Cmwg [address] Work Phone: 06-21-2023 08:29-0400 Body mass index (BMI) [Ratio] 26.5 kg/m2 Don Barrera Work Phone: ZJ-Rjrucephfu-Rieh [address] Work Phone: 06-21-2023 08:29-0400 Body surface area Derived from formula 1.8 m2 Don Barrera Work Phone: QY-Xreklhixqo-Vdbi [address] Work Phone: 06-21-2023 08:29-0400 Body weight 72.24 kg Don Barrera Work Phone: PH-Yusyhwuaez-Qrwk [address] Work Phone: 06-21-2023 08:29-0400 Diastolic blood pressure 60 mm[Hg] Don Barrera Work Phone: AW-Oisiopeqtq-Vszr [address] Work Phone: 06-21-2023 08:29-0400 Heart rate 91 /min Don Barrera Work Phone: JN-Pivupaazoc-Aapr [address] Work Phone: 06-21-2023 08:29-0400 SaO2% (BldA) [Mass fraction] 96 % Don Barrera Work Phone: DF-Nnpakxhlrz-Wbje [address] Work Phone: 06-21-2023 08:29-0400 Systolic blood pressure 118 mm[Hg] Don Barrera Work Phone: IF-Zettevzfhw-Ubed [address] Work Phone: 05-31-2023 14:45-0400 Body height 165.1 cm Don Barrera MD Work Phone: [facility] 05-31-2023 14:45-0400 Body mass index (BMI) [Ratio] 26.43 kg/m2 Don Barrera MD Work Phone: [facility] 05-31-2023 14:45-0400 Body weight 72.03 kg Don Barrera MD Work Phone: [facility] 05-31-2023 14:45-0400 Diastolic blood pressure 60 mm[Hg] Don Barrera MD Work Phone: 4(745)077-457729 [place] [address] 05-31-2023 14:45-0400 Heart rate 64 /min Don Barrera MD Work Phone: 4(460)490-300329 [place] [address] 05-31-2023 14:45-0400 SaO2% (BldA) [Mass fraction] 95 % Don Barrera MD Work Phone: 1(568)844-031329 [place] [address] 05-31-2023 14:45-0400 Systolic blood pressure 120 mm[Hg] Don Barrera MD Work Phone: 7(318)847-565729 [place] [address] 05-04-2023 08:06-0400 Body height 165.1 cm Don Barrera MD Work Phone: 4(517)512-937447 [address] 05-04-2023 08:06-0400 Body mass index (BMI) [Ratio] 26.24 kg/m2 Don Barrera MD Work Phone: 3(350)404-220029 [place] [address] 05-04-2023 08:06-0400 Body weight 71.53 kg Don Barrera MD Work Phone: 6(058)035-369159 [place] [address] 05-04-2023 08:06-0400 Diastolic blood pressure 60 mm[Hg] Don Barrera MD Work Phone: 4(269)714-315129 [place] [address] 05-04-2023 08:06-0400 Heart rate 61 /min Don Barrera MD Work Phone: 2(098)628-405229 [place] [address] 05-04-2023 08:06-0400 SaO2% (BldA) [Mass fraction] 98 % Don Barrera MD Work Phone: 5(577)470-223829 [place] [address] 05-04-2023 08:06-0400 Systolic blood pressure 116 mm[Hg] Don Barrera MD Work Phone: 1(037)301-327559 [place] [address] 02-09-2023 08:08-0400 Diastolic blood pressure 77 mm[Hg] Eladio Sancho Jr., DPM Work Phone: [facility] 02-09-2023 08:08-0400 Heart rate 57 /min Eladio Sancho Jr., DPM Work Phone: [facility] 02-09-2023 08:08-0400 Systolic blood pressure 147 mm[Hg] Eladio Sancho Jr., DPM Work Phone: [facility] 02-09-2023 08:05-0400 Body temperature 97.3 [degF] Eladio Sancho Jr., DPM Work Phone: [facility] 11-17-2022 08:03-0500 Body temperature 97 [degF] Eladio Sancho Jr., DPM Work Phone: [facility] 11-17-2022 08:03-0500 Diastolic blood pressure 83 mm[Hg] Eladio Sancho Jr., DPM Work Phone: [facility] 11-17-2022 08:03-0500 Heart rate 65 /min Eladio Sancho Jr., DPM Work Phone: [facility] 11-17-2022 08:03-0500 Systolic blood pressure 130 mm[Hg] Eladio Sancho Jr., DPM Work Phone: [facility] 10-27-2022 08:41-0500 Body height 165.1 cm Don Barrera Work Phone: [facility] [employer] [facility] Work Phone: 10-27-2022 08:41-0500 Body mass index (BMI) [Ratio] 26.79 kg/m2 Don Barrera Work Phone: [facility] [employer] [facility] Work Phone: 10-27-2022 08:41-0500 Body surface area Derived from formula 1.8 m2 Don Barrera Work Phone: [facility] Work Phone: 10-27-2022 08:41-0500 Body weight 73.03 kg Don Barrera Work Phone: [facility] Work Phone: 10-27-2022 08:41-0500 Diastolic blood pressure 66 mm[Hg] Eligioer D Barrera Work Phone: [facility] Work Phone: 10-27-2022 08:41-0500 Heart rate 59 /min Don Barrera Work Phone: [facility] Work Phone: 10-27-2022 08:41-0500 SaO2% (BldA) [Mass fraction] 99 % Don Sheltond Work Phone: [facility] Work Phone: 10-27-2022 08:41-0500 Systolic blood pressure 132 mm[Hg] Eligioer Cande Barrera Work Phone: [facility] Work Phone: 09-23-2022 10:31-0500 Body height 168 cm Don Barrera Other Phone: [facility] 09-23-2022 10:31-0500 Body temperature 98.24 [degF] Don Sheltond Other Phone: [facility] 09-23-2022 10:31-0500 Diastolic blood pressure 85 mm[Hg] Christopher Barrera Other Phone: [facility] 09-23-2022 10:31-0500 Heart rate 80 /min Alokopher Barrera Other Phone: [facility] 09-23-2022 10:31-0500 Respiratory rate 16 /min Don Sheltond Other Phone: [facility] 09-23-2022 10:31-0500 SaO2% (BldA) [Mass fraction] 96 % Don Sheltond Other Phone: [facility] 09-23-2022 10:31-0500 Systolic blood pressure 153 mm[Hg] Alokailyndequan Barrera Other Phone: [facility] 08-18-2022 07:57-0400 Body temperature 97 [degF] Eladio Kingsley Jr., DPM Work Phone: [facility] 08-18-2022 07:57-0400 Diastolic blood pressure 75 mm[Hg] Eladio Kingsley Jr., DPM Work Phone: [facility] 08-18-2022 07:57-0400 Heart rate 53 /min Eladio Kingsley Jr., DPM Work Phone: [facility] 08-18-2022 07:57-0400 Systolic blood pressure 131 mm[Hg] Eladio Kingsley Jr., DPM Work Phone: [facility] 06-15-2022 08:23-0400 Body height 165.1 cm Don Barrera Work Phone: LL-Mxblooziwm-Ygwe [address] Work Phone: 06-15-2022 08:23-0400 Body mass index (BMI) [Ratio] 27.22 kg/m2 Don Barrera Work Phone: SD-Qgycrluqfn-Vkgq [address] Work Phone: 06-15-2022 08:23-0400 Body surface area Derived from formula 1.82 m2 Don Barrera Work Phone: UT-Sibyatonfj-Egan [address] Work Phone: 06-15-2022 08:23-0400 Body weight 74.21 kg Don Barrera Work Phone: IW-Vxwianuvwi-Rqgg [address] Work Phone: 06-15-2022 08:23-0400 Diastolic blood pressure 80 mm[Hg] Alokphilly Cande Barrera Work Phone: NS-Myyejfxasx-Suhv [address] Work Phone: 06-15-2022 08:23-0400 Heart rate 79 /min Alokailyndequan Barrera Work Phone: LS-Osaykoejuq-Devz [address] Work Phone: 06-15-2022 08:23-0400 SaO2% (BldA) [Mass fraction] 98 % Don Cande Barrera Work Phone: LR-Hwmnthykdf-Arta [address] Work Phone: 06-15-2022 08:23-0400 Systolic blood pressure 138 mm[Hg] Don Barrera Work Phone: [place]-Huxahumypu-Zidm [address] Work Phone: 05-19-2022 08:10-0400 Body temperature 97.3 [degF] Eladio Kingsley Jr., DPM Work Phone: [facility] 05-19-2022 08:10-0400 Diastolic blood pressure 66 mm[Hg] Eladio Kingsley Jr., DPM Work Phone: [facility] 05-19-2022 08:10-0400 Heart rate 70 /min Eladio Kingsley Jr., DPM Work Phone: [facility] 05-19-2022 08:10-0400 Systolic blood pressure 110 mm[Hg] Eladio Kingsley Jr., DPM Work Phone: [facility] 05-17-2022 13:04-0400 Body mass index (BMI) [Ratio] 27.46 kg/m2 Don Barrera Work Phone: VW-Ahoyfvvucp-Bhvy [address] Work Phone: 05-17-2022 13:04-0400 Body surface area Derived from formula 1.82 m2 Don Barrera Work Phone: RI-Gprwehyzhe-Gspy [address] Work Phone: 05-17-2022 13:04-0400 Body weight 74.84 kg Don Barrera Work Phone: IV-Rkszzaacok-Amko [address] Work Phone: 05-17-2022 13:04-0400 Diastolic blood pressure 89 mm[Hg] Don Barrera Work Phone: LX-Skalxcellt-Etnr [address] Work Phone: 05-17-2022 13:04-0400 Heart rate 64 /min Don Barrera Work Phone: WT-Hzdzavjhpj-Yntq [address] Work Phone: 05-17-2022 13:04-0400 Systolic blood pressure 137 mm[Hg] Don Barrera Work Phone: IG-Fyqejymmdj-Ggwy [address] Work Phone: 04-26-2022 08:24-0400 Body height 165.1 cm Don Barrera Work Phone: -[employer] [facility] Work Phone: 04-26-2022 08:24-0400 Body mass index (BMI) [Ratio] 27.83 kg/m2 Don Barrera Work Phone: [facility] [employer] [facility] Work Phone: 04-26-2022 08:24-0400 Body surface area Derived from formula 1.83 m2 Don Barrera Work Phone: -[facility] Work Phone: 04-26-2022 08:24-0400 Body weight 75.86 kg Don Barrera Work Phone: -[facility] Work Phone: 04-26-2022 08:24-0400 Diastolic blood pressure 70 mm[Hg] Don Barrera Work Phone: [facility] [facility] Work Phone: 04-26-2022 08:24-0400 Heart rate 70 /min Don Barrera Work Phone: [facility] Work Phone: 04-26-2022 08:24-0400 SaO2% (BldA) [Mass fraction] 96 % Don Barrera Work Phone: [facility] Work Phone: 04-26-2022 08:24-0400 Systolic blood pressure 140 mm[Hg] Don Barrera Work Phone: [facility] Work Phone: 02-27-2022 11:02-0400 Body height 165.1 cm Don Barrera Work Phone: [facility] Work Phone: 02-27-2022 11:02-0400 Body mass index (BMI) [Ratio] 26.96 kg/m2 Don Barrera Work Phone: [facility] Work Phone: 02-27-2022 11:02-0400 Body surface area Derived from formula 1.81 m2 Don Barrera Work Phone: [facility] Work Phone: 02-27-2022 11:02-0400 Body weight 73.48 kg Don Barrera Work Phone: [facility] Work Phone: 02-27-2022 11:02-0400 Diastolic blood pressure 60 mm[Hg] Don Barrera Work Phone: [facility] Work Phone: 02-27-2022 11:02-0400 Heart rate 64 /min Don Barrera Work Phone: [facility] Work Phone: 02-27-2022 11:02-0400 SaO2% (BldA) [Mass fraction] 97 % Don Barrera Work Phone: [facility] Work Phone: 02-27-2022 11:02-0400 Systolic blood pressure 110 mm[Hg] Don Barrera Work Phone: [facility] Work Phone: 02-15-2022 09:34-0400 Body temperature 98.1 [degF] Eladio Kingsley Jr., DPM Work Phone: [facility] 02-15-2022 09:34-0400 Diastolic blood pressure 85 mm[Hg] Eladio Kingsley Jr., DPM Work Phone: [facility] 02-15-2022 09:34-0400 Heart rate 65 /min Eladio Kingsley Jr., DPM Work Phone: [facility] 02-15-2022 09:34-0400 Systolic blood pressure 131 mm[Hg] Eladio Kingsley Jr., DPM Work Phone: [facility] 11-15-2021 11:23-0500 Body mass index (BMI) [...] 11-15-2021 11:23-0500 Diastolic blood pressure 67 mm[Hg] Alokphilly Barrera Work Phone: [facility] Work Phone: 11-15-2021 11:23-0500 Heart rate 69 /min Alokphilly Barrera Work Phone: [facility] Work Phone: 11-15-2021 11:23-0500 Respiratory rate 16 /min Alokphilly Barrera Work Phone: [facility] Work Phone: 11-15-2021 11:23-0500 Systolic blood pressure 111 mm[Hg] Don Barrera Work Phone: [facility] Work Phone: 11-04-2021 08:03-0500 Body temperature 98.1 [degF] Eladio Kingsley Jr., DPM Work Phone: [facility] 11-04-2021 08:03-0500 Diastolic blood pressure 73 mm[Hg] Eladio Kingsley Jr., DPM Work Phone: [facility] 11-04-2021 08:03-0500 Heart rate 95 /min Eladio Kingsley Jr., DPM Work Phone: [facility] 11-04-2021 08:03-0500 Systolic blood pressure 124 mm[Hg] Eladio Kingsley Jr., DPM Work Phone: [facility] 10-26-2021 08:10-0500 Body height 165.1 cm Don Barrera Work Phone: [facility] Work Phone: 10-26-2021 08:10-0500 Body mass index (BMI) [Ratio] 26.86 kg/m2 Don Barrera Work Phone: [facility] Work Phone: 10-26-2021 08:10-0500 Body surface area Derived from formula 1.81 m2 Don Barrera Work Phone: [facility] Work Phone: 10-26-2021 08:10-0500 Body temperature 97.3 [degF] Don Barrera Work Phone: [facility] Work Phone: 10-26-2021 08:10-0500 Body weight 73.23 kg Don Barrera Work Phone: [facility] Work Phone: 10-26-2021 08:10-0500 Diastolic blood pressure 80 mm[Hg] Don Barrera Work Phone: [facility] Work Phone: 10-26-2021 08:10-0500 Heart rate 72 /min Don Barrera Work Phone: [facility] Work Phone: 10-26-2021 08:10-0500 SaO2% (BldA) [Mass fraction] 98 % Don Barrera Work Phone: [facility] Work Phone: 10-26-2021 08:10-0500 Systolic blood pressure 130 mm[Hg] Don Barrera Work Phone: [facility] Work Phone: 08-30-2021 12:06-0500 Body mass index [...] 05-20-2021 12:55-0400 Body height 167.6 cm Vijay Wilson MD Work Phone: [facility] 05-20-2021 12:55-0400 Body mass index (BMI) [Ratio] 27.12 kg/m2 Vijay Viveros MD Work Phone: [facility] 05-20-2021 12:55-0400 Body weight 76.2 kg Vijay Viveros MD Work Phone: [facility] 05-18-2021 13:03-0400 Body height 165.1 cm Don Barrera Work Phone: IM[facility]Uwpvptx[facility]edfiug Work Phone: 05-18-2021 13:03-0400 Body mass index (BMI) [Ratio] 28.12 kg/m2 Don Barrera Work Phone: OV-Omigmru-Nwlmtjn Work Phone: 05-18-2021 13:03-0400 Body surface area Derived from formula 1.84 m2 Don Barrera Work Phone: OD-Yczndhq-Xlspiqb Work Phone: 05-18-2021 13:03-0400 Body weight 76.66 kg Don Barrera Work Phone: JM-Bsieivo-Juqexue Work Phone: 05-18-2021 13:03-0400 Diastolic blood pressure 62 mm[Hg] Don Barrera Work Phone: EY-Stmoolm-Vbkslyi Work Phone: 05-18-2021 13:03-0400 Heart rate 64 /min Don Barrera Work Phone: BH-Litnnqo-Ekuuwsl Work Phone: 05-18-2021 13:03-0400 Systolic blood pressure 120 mm[Hg] Don Barrera Work Phone: AQ-Otulxct-Pchxdlu Work Phone: 05-13-2021 08:03-0400 Body height 167.6 cm Eladio Acevedoboni Mendoza., DPM Work Phone: [facility] 05-13-2021 08:03-0400 Body mass index (BMI) [Ratio] 27.12 kg/m2 Eladio Kingsley Jr., DPM Work Phone: [facility] 05-13-2021 08:03-0400 Body temperature 97.7 [degF] Eladio Halln Jr., DPM Work Phone: [facility] 05-13-2021 08:03-0400 Body weight 76.2 kg Eladio Kingsley Jr., DPM Work Phone: [facility] 05-13-2021 08:03-0400 Diastolic blood pressure 64 mm[Hg] Eladio Hallyesi Mendoza., DPM Work Phone: [facility] 05-13-2021 08:03-0400 Heart rate 86 /min Eladio Hallyesi Mendoza., DPM Work Phone: [facility] 05-13-2021 08:03-0400 Systolic blood pressure 121 mm[Hg] Eladio Halln Jr., DPM Work Phone: [facility] 05-09-2021 10:04-0400 Body height 167.6 cm Heather Paredes MD Work Phone: [facility] 05-09-2021 10:04-0400 Body mass index (BMI) [Ratio] 27.12 kg/m2 Heather Paredes MD Work Phone: [facility] 05-09-2021 10:04-0400 Body weight 76.2 kg Heather Paredes MD Work Phone: [facility] 05-09-2021 10:04-0400 Diastolic blood pressure 83 mm[Hg] Heather Paredes MD Work Phone: [facility] 05-09-2021 10:04-0400 Heart rate 53 /min Heather Paredes MD Work Phone: [facility] 05-09-2021 10:04-0400 SaO2% (BldA) [Mass fraction] 94 % Heather Paredes MD Work Phone: [facility] 05-09-2021 10:04-0400 Systolic blood pressure 143 mm[Hg] Heather Paredes MD Work Phone: [facility] 04-20-2021 09:50-0400 Body height 165.1 cm Don Barrera Work Phone: [facility] Work Phone: 04-20-2021 09:50-0400 Body mass index (BMI) [Ratio] 28.04 kg/m2 Don Barrera Work Phone: [facility] Work Phone: 04-20-2021 09:50-0400 Body surface area Derived from formula 1.84 m2 Don Barrera Work Phone: [facility] Work Phone: 04-20-2021 09:50-0400 Body temperature 97.3 [degF] Don Barrera Work Phone: [facility] Work Phone: 04-20-2021 09:50-0400 Body weight 76.43 kg Don Barrera Work Phone: [facility] Work Phone: 04-20-2021 09:50-0400 Diastolic blood pressure 64 mm[Hg] Don Barrera Work Phone: [facility] Work Phone: 04-20-2021 09:50-0400 Heart rate 57 /min Don Barrera Work Phone: [facility] Work Phone: 04-20-2021 09:50-0400 SaO2% (BldA) [Mass fraction] 96 % Don Barrera Work Phone: [facility] Work Phone: 04-20-2021 09:50-0400 Systolic blood pressure 120 mm[Hg] Don Barrera Work Phone: [facility] Work Phone: 02-11-2021 21:23-0400 Body height 167.6 cm Eladio Kingsley Jr., DPM Work Phone: [facility] 02-11-2021 21:23-0400 Body mass index (BMI) [Ratio] 27.12 kg/m2 Eladio Sancho Jr., DPM Work Phone: [facility] 02-11-2021 21:23-0400 Body weight 76.2 kg Eladio Kingsley Jr., DPM Work Phone: [facility] 11-12-2020 21:23-0500 Diastolic blood pressure 66 mm[Hg] Eladio Sancho Mendoza., DPM Work Phone: [facility] 11-12-2020 21:23-0500 Systolic blood pressure 117 mm[Hg] Eladio Sancho Jr., DPM Work Phone: [facility] 04-07-2020 10:11-0400 BMI (Body Mass Index) 24.3 kg/m2 Don Barrera [facility] Work Phone: 04-07-2020 10:11-0400 Body Temperature 97.8 [degF] Don Barrera [facility] Work Phone: 04-07-2020 10:11-0400 Body weight 66.23 kg Don Barrera [facility] Work Phone: 04-07-2020 10:11-0400 BP Diastolic 64 mm[Hg] Don Barrera [facility] Work Phone: 04-07-2020 10:11-0400 BP Systolic 108 mm[Hg] Don Barrera [facility] Work Phone: 04-07-2020 10:11-0400 BSA (Body Surface Area) 1.73 m2 Don Barrera [facility] Work Phone: 04-07-2020 10:11-0400 Height 165.1 cm Don Barrera [facility] Work Phone: 04-07-2020 10:11-0400 Pulse (Heart Rate) 72 /min Don Barrera [facility] Work Phone: 04-07-2020 10:05-0400 BMI (Body Mass Index) 27.62 kg/m2 Don Barrera -[facility] Work Phone: 04-07-2020 10:05-0400 Body Temperature 97.3 [degF] Don Barrera -[facility] Work Phone: 04-07-2020 10:05-0400 Body weight 75.3 kg Don Barrera [facility] Work Phone: 04-07-2020 10:05-0400 BP Diastolic 64 mm[Hg] Don Barrera -[facility] Work Phone: Comment on above: Location: E; 04-07-2020 10:05-0400 BP Systolic 108 mm[Hg] Don Barrera -[facility] Work Phone: Comment on above: Location: E; 04-07-2020 10:05-0400 BSA (Body Surface Area) 1.83 m2 Don Barrera [facility] Work Phone: 04-07-2020 10:05-0400 Height 165.1 cm Don Barrera [facility] Work Phone: 04-07-2020 10:05-0400 Pulse (Heart Rate) 72 /min Don Barrera [facility] Work Phone: 03-08-2020 15:38-0400 Diastolic blood pressure 72 ml [facility] 03-08-2020 15:38-0400 Systolic blood pressure 23 ml [facility] 03-08-2020 09:51-0400 BMI (Body Mass Index) 26.24 kg/m2 [facility] 03-08-2020 09:51-0400 Body weight 76 kg [facility] 03-08-2020 09:51-0400 BP Diastolic 73 mm[Hg] [facility] 03-08-2020 09:51-0400 BP Systolic 138 mm[Hg] [facility] 03-08-2020 09:51-0400 Height 170.2 cm [facility] 03-08-2020 09:51-0400 Pulse (Heart Rate) 66 /min [facility] 11-12-2019 16:51-0500 BMI (Body Mass Index) 26.19 kg/m2 Robb Colindres II BP-Htgdwzq-Ymxhoxa Work Phone: 11-12-2019 16:51-0500 Body weight 73.03 kg Robb Colindres II FO-Oynxjuo-Fakqx nd Work Phone: 11-12-2019 16:51-0500 BP Diastolic 68 mm[Hg] Robb Flanneryk II GD-Jiqrfmn-Xhaki nd Work Phone: 11-12-2019 16:51-0500 BP Systolic 122 mm[Hg] Robb Flanneryk II QT-Akpgvry-Rtivs nd Work Phone: 11-12-2019 16:51-0500 BSA (Body Surface Area) 1.82 m2 Robb Flanneryk II DM-Zvtlkdo-Uczawjd Work Phone: 11-12-2019 16:51-0500 Height 167 cm Robb Flanneryk II NI-Zkswtan-Fktwx nd Work Phone: 11-12-2019 16:51-0500 Pulse (Heart Rate) 64 /min Robb Colindres II NW-Aqfcgfg-Ru hland Work Phone: 10-08-2019 13:03-0500 BMI (Body Mass Index) 27.85 kg/m2 Robb Colindres II, MPOJ-Cwcvfzu-Gcampta Work Phone: 10-08-2019 13:03-0500 Body weight 75.92 kg Robb Colindres II, MPVP-Gaxuvok-Wuylb nd Work Phone: 10-08-2019 13:03-0500 BP Diastolic 81 mm[Hg] Robb Colindres II, MPQX-Qatfvkp-Nzsii nd Work Phone: 10-08-2019 13:03-0500 BP Systolic 146 mm[Hg] Robb Colindres II, MPMK-Uvhwetn-Onorw nd Work Phone: 10-08-2019 13:03-0500 BSA (Body Surface Area) 1.83 m2 Robb Colindres II, MPIM-Hugwbjz-Icwmekq Work Phone: 10-08-2019 13:03-0500 Height 165.1 cm Robb Colindres II, MPCC-Xfztdmd-Syctb nd Work Phone: 10-08-2019 13:03-0500 Pulse (Heart Rate) 69 /min Robb Colindres II CW-Ycfpytc-Mu [place] Work Phone: 10-03-2019 10:09-0500 BMI (Body Mass Index) 27.33 kg/m2 Don Barrera [facility] Work Phone: 10-03-2019 10:09-0500 Body weight 74.5 kg Don Barrera [facility] Work Phone: 10-03-2019 10:09-0500 BP Diastolic 64 mm[Hg] Don Barrera [facility] Work Phone: Comment on above: Location: E; 10-03-2019 10:09-0500 BP Systolic 122 mm[Hg] Don Barrera [facility] Work Phone: Comment on above: Location: E; 10-03-2019 10:09-0500 BSA (Body Surface Area) 1.82 m2 Don Barrera -[facility] Work Phone: 10-03-2019 10:09-0500 Height 165.1 cm Don Barrera -[facility] Work Phone: 10-03-2019 10:09-0500 Pulse (Heart Rate) 64 /min Don Barrera -[facility] Work Phone: 10-03-2019 10:09-0500 Pulse Oximetry 97 % Don Barrera -[facility] Work Phone: 09-25-2019 13:50-0500 Body Temperature 98.6 [degF] Jenifer [facility] 09-25-2019 13:50-0500 BP Diastolic 60 mm[Hg] [facility] 09-25-2019 13:50-0500 BP Systolic 110 mm[Hg] [facility] 09-25-2019 13:50-0500 Pulse (Heart Rate) 64 /min [facility] 09-25-2019 13:50-0500 Pulse Oximetry 97 % [facility] 09-25-2019 11:52-0500 Body Temperature 98.8 [degF] [facility] 09-25-2019 11:52-0500 BP Diastolic 74 mm[Hg] [facility] 09-25-2019 11:52-0500 BP Systolic 128 mm[Hg] [facility] 09-25-2019 11:52-0500 Pulse (Heart Rate) 52 /min [facility] 09-25-2019 11:52-0500 Pulse Oximetry 99 % [facility] 09-23-2019 12:45-0500 BMI (Body Mass Index) 26.16 kg/m2 Vijay Viveros [facility] 09-23-2019 12:45-0500 Body weight 75.75 kg Vijay Viveros [facility] 09-23-2019 12:45-0500 Height 170.2 cm Vijay Viveros [facility] 09-22-2019 11:28-0500 Body Temperature 97.9 [degF] Clemente [facility] 09-22-2019 11:28-0500 BP Diastolic 74 mm[Hg] [facility] 09-22-2019 11:28-0500 BP Systolic 120 mm[Hg] [facility] 09-22-2019 11:28-0500 Pulse (Heart Rate) 77 /min Clemente [facility] 09-22-2019 11:28-0500 Pulse Oximetry 98 % Clemente [facility] 09-22-2019 10:34-0500 Body Temperature 98.2 [degF] [facility] 09-22-2019 10:34-0500 BP Diastolic 70 mm[Hg] [facility] 09-22-2019 10:34-0500 BP Systolic 120 mm[Hg] [facility] 09-22-2019 10:34-0500 Pulse (Heart Rate) 64 /min [facility] 09-22-2019 10:34-0500 Pulse Oximetry 97 % [facility] 09-22-2019 10:34-0500 Respiratory Rate 18 /min [facility] 09-19-2019 10:07-0500 Body Temperature 97.5 [degF] [facility] 09-19-2019 10:07-0500 BP Diastolic 58 mm[Hg] [facility] 09-19-2019 10:07-0500 BP Systolic 98 mm[Hg] [facility] 09-19-2019 10:07-0500 Pulse (Heart Rate) 68 /min [facility] 09-19-2019 10:07-0500 Pulse Oximetry 95 % [facility] 09-19-2019 10:07-0500 Respiratory Rate 16 /min [facility] 09-17-2019 11:35-0500 BMI (Body Mass Index) 27.72 kg/m2 [id number] [facility]OLOG[facility] NURSE [facility] Work Phone: 09-17-2019 11:35-0500 Body weight 80.29 kg [id number] [facility]OLOG[facility] NURSE [facility] Work Phone: 09-17-2019 11:35-0500 BP Diastolic 78 mm[Hg] [id number] [facility]OLOGY NURSE [facility] Work Phone: 09-17-2019 11:35-0500 BP Systolic 124 mm[Hg] [id number] [facility] UROLOGY NURSE FO-Lecywhr-Kzasztd Work Phone: 09-17-2019 11:35-0500 BSA (Body Surface Area) 1.92 m2 [id number] [facility] UROLOGY NURSE UX-Puqwsky-Vbajyht Work Phone: 09-17-2019 11:35-0500 Height 170.18 cm [id number] [facility] UROLOGY NURSE IC-Oeogcxi-Sufftqz Work Phone: 09-17-2019 11:25-0500 Body Temperature 97.9 [degF] [facility] 09-17-2019 11:25-0500 BP Diastolic 65 mm[Hg] [facility] 09-17-2019 11:25-0500 BP Systolic 110 mm[Hg] [facility] 09-17-2019 11:25-0500 Pulse (Heart Rate) 65 /min [facility] 09-17-2019 11:25-0500 Pulse Oximetry 98 % [facility] 09-15-2019 10:53-0500 Body Temperature 98.01 [degF] [facility] 09-15-2019 10:53-0500 BP Diastolic 72 mm[Hg] [facility] 09-15-2019 10:53-0500 BP Systolic 124 mm[Hg] [facility] 09-15-2019 10:53-0500 Pulse (Heart Rate) 72 /min [facility] 09-15-2019 10:53-0500 Pulse Oximetry 72 % [facility] 09-15-2019 10:53-0500 Respiratory Rate 16 /min [facility] 09-15-2019 10:28-0500 Body Temperature 98.01 [degF] [facility] 09-15-2019 10:28-0500 BP Diastolic 72 mm[Hg] [facility] 09-15-2019 10:28-0500 BP Systolic 124 mm[Hg] [facility] 09-15-2019 10:28-0500 Pulse (Heart Rate) 68 /min [facility] 09-15-2019 10:28-0500 Pulse Oximetry 97 % [facility] 09-12-2019 12:27-0500 Body Temperature 97.9 [degF] Chary Mayorga [facility] 09-12-2019 12:27-0500 BP Diastolic 70 mm[Hg] Chary Mayorga [facility] 09-12-2019 12:27-0500 BP Systolic 110 mm[Hg] Chary Mayorga [facility] 09-12-2019 12:27-0500 Pulse (Heart Rate) 77 /min Chary Mayorga [facility] 09-12-2019 12:27-0500 Pulse Oximetry 95 % Chary Mayorga [facility] 09-12-2019 10:17-0500 Body Temperature 97.3 [degF] Milagro Leal [facility] 09-12-2019 10:17-0500 BP Diastolic 60 mm[Hg] Milagro Leal [facility] 09-12-2019 10:17-0500 BP Systolic 112 mm[Hg] Milagro Leal [facility] 09-12-2019 10:17-0500 Pulse (Heart Rate) 68 /min Milagro Leal [facility] 09-12-2019 10:17-0500 Pulse Oximetry 93 % Milagro Leal [facility] 09-12-2019 10:17-0500 Respiratory Rate 18 /min Milagro Leal [facility] 09-11-2019 14:58-0500 Respiratory Rate 16 /min Vijay Viveros [facility] 09-11-2019 13:24-0500 Body Temperature 99.1 [degF] Vijay Viveros [facility] 09-11-2019 13:24-0500 BP Diastolic 78 mm[Hg] Vijay Viveros [facility] 09-11-2019 13:24-0500 BP Systolic 135 mm[Hg] Vijay Viveros [facility] 09-11-2019 13:24-0500 Pulse (Heart Rate) 71 /min Vijay Viveros [facility] 09-11-2019 13:24-0500 Pulse Oximetry 97 % Vijay Viveros [facility] 09-10-2019 08:38-0500 BMI (Body Mass Index) 26.24 kg/m2 Vijay Viveros [facility] 09-10-2019 08:38-0500 Body weight 76 kg Vijay Viveros [facility] 09-10-2019 08:38-0500 Height 170.2 cm Vijay Viveros [facility] 05-19-2019 10:18-0400 BMI (Body Mass Index) 26.24 kg/m2 Heather Paredes [facility] 05-19-2019 10:18-0400 Body weight 78.29 kg Heather Paredes [facility] 05-19-2019 10:18-0400 BP Diastolic 73 mm[Hg] Heather Paredes [facility] 05-19-2019 10:18-0400 BP Systolic 139 mm[Hg] Heather Paredes [facility] 05-19-2019 10:18-0400 Height 172.7 cm Heather Paredes [facility] 05-19-2019 10:18-0400 Pulse (Heart Rate) 60 /min Heather Paredes [facility] 05-19-2019 10:18-0400 Pulse Oximetry 96 % Heather Paredes [facility] 04-28-2019 09:29-0400 BMI (Body Mass Index) 26.15 kg/m2 Vijay Viveros [facility] 04-28-2019 09:29-0400 Body weight 78.02 kg Vijay Viveros [facility] 04-28-2019 09:29-0400 Height 172.7 cm Vijay Viveros [facility] 04-22-2018 12:03-0400 BMI (Body Mass Index) 26.23 kg/m2 Heather Paredes [facility] 04-22-2018 12:03-0400 BP Diastolic 82 mm[Hg] [facility] 12:03-0400 BP Systolic 136 mm[Hg] [facility] 04-22-2018 12:03-0400 Height 172.7 cm [facility] 04-22-2018 12:03-0400 Pulse (Heart Rate) 61 /min [facility] 04-22-2018 12:03-0400 Pulse Oximetry 93 % Heather Paredes [facility] 04-22-2018 12:03-0400 Weight 78.25 kg Heather [facility] Encounters Encounter Date Encounter Type Care Provider Facility Start: 05-25-2025 ambulatory Devan Barrera Facilit y:[facility] Start: 05-21-2025 ambulatory Devan Barrera Facilit y:[facility] Start: 05-20-2025 Evaluation and manag ement of inpatient Jesus Alberto Chi Feliciano Facility:[facility] Start: 05-18-2025 Evaluation and manag ement of inpatient LINCOLN GRADY [facility] Start: 05-11-2025 End: 05-11-2025 Emergency department patient visit LEONARDO BERGER [facility] Start: 05-10-2025 End: 05-11-2025 Evaluation and management of inpatient SANTIAGO MENENDEZ [facility] Start: 05-10-2025 End: 05-20-2025 Evaluation and management of inpatient Carri Greer MD Work Phone: [facility] Chalino Ayala Comment on above: Fall, initial encoun ter (Primary Dx); Open fracture of roof of right orbit, initial encounter (Multi); Closed bilateral fracture of pubic rami, initial encounter (Multi); SAH (subarachnoid hemorrhage) (Multi); Syncope, unspecified syncope type; Urinary retention; Pseudophakia of both eyes Start: 05-10-2025 End: 05-10-2025 Emergency department patient visit Santiago Menendez DO Work Phone: [facility] Comment on above: Closed fracture of r ight orbit, initial encounter (Multi) (Primary Dx); Intracranial hemorrhage (Multi); Multiple closed fractures of pelvis with disruption of pelvic ring, initial encounter (Multi) Start: 05-08-2025 End: 05-08-2025 Subsequent hospital visit by physician Doug [facility] Comment on above: Neck pain Start: 05-08-2025 End: 05-08-2025 ambulatory [facility] Start: 05-07-2025 End: 05-07-2025 Office outpatient visit 15 minutes Don Barrera MD Work Phone: [facility] Comment on above: Neck pain (Primary D x) Start: 05-07-2025 End: 05-07-2025 ambulatory [facility] Start: 04-10-2025 End: 04-10-2025 Subsequent hospital visit by physician Doug X-Ray 1 [facility] Comment on above: Rib pain on left chelo e Start: 04-10-2025 End: 04-10-2025 ambulatory [facility] Start: 04-10-2025 End: 04-10-2025 ambulatory [facility] Start: 04-10-2025 End: 04-10-2025 Patient encounter procedure Eladio Kingsley DPM Work Phone: [facility] Comment on above: Onychomycosis (Prima ry Dx); Peripheral vascular disease, unspecified Rib pain on left chelo e (Primary Dx) Start: 04-10-2025 End: 04-10-2025 [facility] Start: 03-10-2025 End: 03-10-2025 ambulatory DELTA Moose BANGURA Facility:[facility] Start: 01-09-2025 End: 01-09-2025 Patient encounter procedure Eladio Kingsley DPM Work Phone: [facility] Comment on above: Onychomycosis (Prima ry Dx); Peripheral vascular disease, unspecified Start: 01-09-2025 End: 01-09-2025 [facility] Start: 11-20-2024 End: 11-20-2024 Office outpatient visit 25 minutes Don Barrera MD Work Phone: [facility] Comment on above: Primary hypertension (Primary Dx); Mixed hyperlipidemia; 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; Benign prostatic 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 lower urinary tract symptoms; Osteoarthritis of spine with radiculopathy, lumbosacral region; MARIANGEL (generalized anxiety disorder); Anemia, unspecified type; Abdominal aneurysm (CMS-HCC); Peripheral arterial occlusive disease (CMS-HCC); Inflammatory polyarthropathy (Multi); Screening for prostate cancer Start: 11-20-2024 End: 11-20-2024 ambulatory [facility] Ambulatory Start: 11-10-2024 End: 11-10-2024 ambulatory [facility] Start: 10-01-2024 End: 10-01-2024 Patient encounter procedure Eladio Kingsley DPM Work Phone: [facility] Comment on above: Onychomycosis (Prima ry Dx); Peripheral vascular disease, unspecified (HCC) Start: 10-01-2024 End: 10-01-2024 ambulatory [facility] Ambulatory Start: 09-02-2024 End: 09-02-2024 [facility] Comment on above: Vertigo; Palpitations Start: 09-02-2024 End: 09-02-2024 ambulatory [facility] Start: 09-01-2024 End: 09-01-2024 Office outpatient visit 25 minutes Don Barrera MD Work Phone: [facility] Comment on above: Vertigo (Primary Dx) ; Hypertension, unspecified type; MARIANGEL (generalized anxiety disorder); 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; Hyperlipidemia, unspecified hyperlipidemia type; Migraine with visual aura; Palpitations Start: 09-01-2024 End: 09-01-2024 ambulatory [facility] Start: 08-14-2024 End: 08-14-2024 ambulatory [facility] Start: 07-31-2024 End: 07-31-2024 Subsequent hospital visit by physician Doug Landry [facility] Comment on above: Athscl heart disease of [place] coronary artery w/o ang pctrs; TIA (transient ischemic attack); Benign hypertensive heart disease without congestive heart failure; Personal history of transient ischemic attack (TIA), and cerebral infarction without residual deficits Start: 07-31-2024 End: 07-31-2024 ambulatory [facility] Start: 07-29-2024 End: 07-29-2024 Subsequent hospital visit by physician Doug Luz [facility] Comment on above: Radiculopathy, lumba r region Start: 07-29-2024 End: 07-29-2024 ambulatory [facility] Start: 07-03-2024 End: 07-03-2024 Office outpatient visit 25 minutes Otoniel Salcedo MD Work Phone: [facility] Comment on above: Athscl heart disease of [place] coronary artery w/o ang pctrs (Primary Dx); TIA (transient ischemic attack); Benign hypertensive heart disease without congestive heart failure Start: 07-03-2024 End: 07-03-2024 ambulatory [facility] Ambulatory Start: 06-17-2024 End: 06-17-2024 Subsequent hospital visit by physician Doug Walter 2 [facility] Comment on above: Abdominal aneurysm ( [facility]); Infrarenal abdominal aortic aneurysm (AAA) without rupture ([facility]) Start: 06-17-2024 End: 06-17-2024 ambulatory [facility] Start: 06-12-2024 End: 06-12-2024 ambulatory [facility] Start: 06-12-2024 End: 06-12-2024 Subsequent hospital visit by physician Doug X-Ray 1 [facility] Comment on above: Left hip pain Start: 06-06-2024 End: 06-06-2024 Patient encounter procedure Eladio Kingsley DPM Work Phone: [facility] Comment on above: Onychomycosis (Prima ry Dx); PAD (peripheral artery disease) ([facility]) Start: 06-06-2024 End: 06-06-2024 ambulatory ELADIO KINGSLEY JR. [facility] ry Start: 05-19-2024 End: 05-19-2024 ambulatory [facility] Start: 05-19-2024 End: 05-19-2024 Encounter for general adult medical examination without abnormal findings [facility] Start: 03-27-2024 End: 03-27-2024 Subsequent hospital visit by physician Doug Petty-Darrel Lopez 1 [facility] Comment on above: Pain in right [...] encounter procedure Eladio Kingsley DPM Work Phone: [facility] Comment on above: Onychomycosis (Prima ry Dx); PAD (peripheral artery disease) ([facility]) Start: 02-12-2024 End: 02-12-2024 Office outpatient new 60 minutes Don Barrera MD Work Phone: [facility] Comment on above: Vestibular migraine (Primary Dx) Start: 12-07-2023 End: 12-07-2023 Emergency department patient visit Celso Cabezas DO Work Phone: [facility] Comment on above: Dizziness (Primary D x) Start: 11-30-2023 End: 11-30-2023 Patient encounter procedure Eladio Halln DPM Work Phone: [facility] Comment on above: Onychomycosis (Prima ry Dx); PAD (peripheral artery disease) ([facility]) Start: 11-16-2023 End: 11-16-2023 Subsequent hospital visit by physician Doug Alves [employer] [facility] Comment on above: Arrived Start: 11-15-2023 End: 11-15-2023 Emergency department patient visit Celso Cabezas DO Work Phone: [facility] Comment on above: Dizziness (Primary D x); Generalized weakness Start: 11-15-2023 End: 11-15-2023 Office outpatient visit 15 minutes Daysi Arenas DO Work Phone: [facility] Comment on above: 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 esophag itis (Primary Dx); Hiatal hernia Start: 11-12-2023 End: 11-12-2023 Subsequent hospital visit by physician Doug Alves [employer] [facility] Comment on above: Arrived Start: 11-11-2023 End: 11-11-2023 Emergency department patient visit Sai Myers MD Work Phone: [facility] Start: 11-06-2023 End: 11-06-2023 Subsequent hospital visit by physician Doug Blair Fluoro 1 [facility] Comment on above: 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 esophag itis; Hiatal hernia Start: 11-05-2023 End: 11-05-2023 Office outpatient visit 25 minutes Don Barrera MD Work Phone: [facility] Comment on above: Primary hypertension (Primary Dx); Screening for prostate cancer; Mixed hyperlipidemia; 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; Benign prostatic 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 lower urinary tract symptoms; Osteoarthritis of spine with radiculopathy, lumbosacral region; MARIANGEL (generalized anxiety disorder); Vertigo; Inflammatory polyarthropathy (CMS/HCC); Peripheral arterial occlusive disease (CMS/HCC); Abdominal aneurysm (CMS/HCC) Start: 11-01-2023 End: 11-01-2023 Office outpatient new 45 minutes Daysi Aidee Arenas DO Work Phone: [facility] Comment on above: Hiatal hernia (Prima ry Dx); 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 Start: 10-31-2023 End: 10-31-2023 Office outpatient visit 15 minutes Eladio Kingsley DPM Work Phone: [facility] Comment on above: Ingrown nail (Primar y Dx); Peripheral vascular disease, unspecified (HCC) Start: 10-24-2023 End: 10-24-2023 Office outpatient visit 15 minutes Eladio Kingsley DPM Work Phone: [facility] Comment on above: Ingrown nail (Primar y Dx) Start: 10-12-2023 End: 10-12-2023 Patient encounter procedure Eladio Kingsley DPM Work Phone: [facility] Comment on above: Ingrown nail (Primar y Dx) Start: 10-06-2023 End: 10-06-2023 Patient encounter procedure Clark Lees PA-C Work Phone: [facility] Comment on above: Urinary frequency (P rimary Dx); Dysuria Start: 09-28-2023 End: 09-28-2023 Office outpatient visit 15 minutes Don Barrera MD Work Phone: [facility] Comment on above: 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 esophag itis (Primary Dx) Start: 09-17-2023 End: 09-17-2023 Office outpatient visit 25 minutes Robb Colindres MD Work Phone: [facility] Comment on above: Benign prostatic hyp erplasia with lower urinary tract symptoms, symptom details unspecified; Nocturia; Erectile dysfunction, unspecified erectile dysfunction type; Urinary frequency; Nocturia associated with benign prostatic hyperplasia Start: 08-29-2023 End: 08-29-2023 Patient encounter procedure Dleta Bangura MD Work Phone: Ophthalmology Comment on above: Epiretinal membrane (ERM) of left eye (Primary Dx); Nonexudative age-related macular degeneration, bilateral, early dry stage; PVD (posterior vitreous detachment), bilateral; Pseudophakia of both eyes; Essential hypertension; Hypercholesteremia Start: 07-22-2023 End: 07-23-2023 Emergency department patient visit Sai Myers MD Work Phone: [facility] Comment on above: Dizziness (Primary D x); Vertigo Start: 06-21-2023 Office outpatient vi sit 25 minutes Don Barrera Work Phone: [facility] Work Phone: Start: 05-31-2023 End: 05-31-2023 Office outpatient visit 15 minutes Don Barrera MD Work Phone: [facility] Comment on above: Chronic right should er pain (Primary Dx) Start: 05-10-[address] Devan Barrera Facility:[id number] Start: 05-04-2023 End: 05-04-2023 Assay of hemosiderin, quant Don Barrera MD Work Phone: [facility] Work Phone: Start: 05-04-2023 End: 05-04-2023 Patient encounter procedure Don Barrera MD Work Phone: [facility] Comment on above: Routine general medi randy examination at health care facility (Primary Dx); Benign prostatic hyperplasia, unspecified whether lower urinary tract symptoms present; Primary hypertension; Peripheral arterial occlusive disease (CMS/HCC); Abdominal aneurysm (CMS/HCC); Mixed hyperlipidemia; 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) Start: 03-10-2023 End: 03-10-2023 Emergency department patient visit Dr. Don Barrera Facility:[id number] Start: 02-21-2023 End: 02-21-2023 Patient encounter procedure Delta Bangura MD Work Phone: Ophthalmology Comment on above: Epiretinal membrane (ERM) of left eye (Primary Dx); Nonexudative age-related macular degeneration, bilateral, early dry stage; PVD (posterior vitreous detachment), bilateral; Pseudophakia of both eyes; Essential hypertension; Hypercholesteremia; Osteoarthritis, unspecified osteoarthritis type, unspecified site Start: 02-09-2023 End: 02-09-2023 Patient encounter procedure Eladio Kingsley DPM Work Phone: [facility] Comment on above: Onychomycosis (Prima ry Dx); Peripheral vascular disease, unspecified (HCC) Start: 11-17-2022 End: 11-17-2022 Patient encounter procedure Eladio Kingsley DPM Work Phone: [facility] Comment on above: Onychomycosis (Prima ry Dx); Peripheral vascular disease, unspecified (HCC) Start: 10-27-2022 Office outpatient vi sit 25 minutes Don Barrera Work Phone: [facility] Work Phone: Start: 10-24-2022 Chart Update Don Barrera Work Phone: [facility] Work Phone: Start: 09-23-2022 [id number] Start: 09-23-2022 End: 09-23-2022 Emergency department patient visit Heike Adams [facility] Start: 09-18-2022 AUDIT Don Barrera Work Phone: [facility] Work Phone: Start: 09-04-2022 AUDIT Don Barrera Work Phone: [facility] Work Phone: Start: 08-18-2022 End: 08-18-2022 Patient encounter procedure Eladio Kingsley DPM Work Phone: [facility] Comment on above: Onychomycosis (Prima ry Dx); Peripheral vascular disease, unspecified (HCC) Start: 06-15-2022 Office outpatient ne w 45 minutes Don Barrera Work Phone: [facility] Work Phone: Start: 05-19-2022 End: 05-19-2022 Patient encounter procedure Eladio ASHBYM Work Phone: [facility] Comment on above: OM (onychomycosis) ( Primary Dx); Peripheral vascular disease, unspecified (HCC) Start: 04-26-2022 Patient encounter procedure Don Barrera Work Phone: [facility] Work Phone: Start: 04-21-2022 Chart Update Don Barrera Work Phone: [facility] Work Phone: Start: 02-27-2022 Office outpatient vi sit 15 minutes Don Barrera Work Phone: [facility] Work Phone: Start: 02-16-2022 Refill Heather arredondo MD Work Phone: [facility] Comment on above: Medication Refill Start: 02-15-2022 End: 02-15-2022 Patient encounter procedure Eladio Kingsley DPM Work Phone: [facility] Comment on above: OM (onychomycosis) ( Primary Dx); PAD (peripheral artery disease) (HCC) Start: 12-12-2021 AUDIT Don Barrera Work Phone: [facility] Work Phone: Start: 11-22-2021 Chart Update Don Barrera Work Phone: [facility] Work Phone: Start: 11-15-2021 Patient encounter procedure Don Barrera Work Phone: [facility] Work Phone: Start: 11-04-2021 AUDIT Don Barrera Work Phone: [facility] Work Phone: Start: 11-04-2021 End: 11-04-2021 Patient encounter procedure Eladio Sancho DPM Work Phone: [facility] Comment on above: Onychomycosis (Prima ry Dx); Peripheral vascular disease, unspecified (HCC) Start: 10-26-2021 Office outpatient vi sit 25 minutes Eligiodequan Sheltond Work Phone: [facility] Work Phone: Start: 09-20-2021 AUDIT Don Barrera Work Phone: [facility] Work Phone: Start: 08-30-2021 Patient encounter procedure Alokphilly Barrera Work Phone: [facility] Work Phone: Start: 07-01-2021 End: 07-01-2021 Office outpatient visit 10 minutes Vijay Viveros MD Work Phone: [facility] Comment on above: Status post left hip replacement (Primary Dx) Start: 06-23-2021 JOYCE, Provider : Dioni Elmore, Status: Pen, Time: 1:15 PM Don Barrera Work Phone: [facility] Work Phone: Start: 06-21-2021 Patient encounter procedure Don Barrera Work Phone: [facility] Work Phone: Start: 06-16-2021 Patient encounter procedure Eligiodequan Cande Barrera Work Phone: [facility] Work Phone: Start: 06-10-2021 Patient encounter procedure Eligiodequan Cande Barrera Work Phone: [facility] Work Phone: Start: 06-07-2021 Patient encounter procedure Eligiodequan Cande Barrera Work Phone: [facility] Work Phone: Start: 05-25-2021 Patient encounter procedure Don Barrera Work Phone: [facility] Work Phone: Start: 05-20-2021 End: 05-20-2021 Office outpatient visit 10 minutes Vijay Viveros MD Work Phone: [facility] Comment on above: Status post left hip replacement (Primary Dx) Start: 05-18-2021 Office outpatient vi sit 25 minutes Don Barrera Work Phone: [facility] Work Phone: Start: 05-13-2021 End: 05-13-2021 Patient encounter procedure Eladio Kingsley DPM Work Phone: [facility] Comment on above: Onychomycosis (Prima ry Dx); Peripheral vascular disease, unspecified (HCC) Start: 05-12-2021 Chart Update Don Barrera Work Phone: [facility] Work Phone: Start: 05-11-2021 AUDIT Don Barrera Work Phone: [facility] Work Phone: Start: 05-09-2021 End: 05-09-2021 Orders Only Deb Menendez RN [facility] Comment on above: Coronary artery dise ase involving [place] coronary artery of [place] heart without angina pectoris (Primary Dx) Start: 05-09-2021 End: 05-09-2021 Office outpatient visit 25 minutes Heather Paredes MD Work Phone: [facility] Comment on above: Coronary artery dise ase involving [place] coronary artery of [place] heart without angina pectoris; Mixed hyperlipidemia; Bradycardia Start: 05-03-2021 End: 05-03-2021 Chart abstracting Eladio Kingsley DPM Work Phone: [facility] Comment on above: Callus of foot; OM (onychomycosis); PAD (peripheral artery disease) ([facility]) Start: 04-20-2021 Patient encounter procedure Don Barrera Work Phone: [facility] Work Phone: Start: 01-11-2021 Patient encounter procedure Don Barrera MD QM-Dhvrysq-Hosxasm Work Phone: Start: 01-10-2021 Patient encounter procedure Don Barrera MD QY-Qdgmmtw-Kvztuze Work Phone: Start: 11-24-2020 Patient encounter procedure Don Barrera MD ML-Qjpwhqa-Uvasils Work Phone: Start: 11-05-2020 End: 11-05-2020 Orders Only Desire Rodriguez Work Phone: [facility] Start: 10-12-2020 End: 10-12-2020 Office outpatient visit 10 minutes Santiago Bates Work Phone: [facility] Comment on above: Status post reverse arthroplasty of left shoulder (Primary Dx) Start: 10-11-2020 Patient encounter procedure Don Barrera MD LG-Wwpkqfv-Bcimfgm Work Phone: Start: 08-20-2020 End: 08-20-2020 Office outpatient visit 10 minutes Vijay Viveros Work Phone: [facility] Comment on above: Status post left hip replacement (Primary Dx); Lumbar and sacral arthritis Start: 07-13-2020 End: 07-13-2020 Office outpatient visit 10 minutes Santiago Bates Work Phone: [facility] Comment on above: Status post reverse arthroplasty of left shoulder (Primary Dx) Start: 07-08-2020 Patient encounter procedure Don Barrera MD DX-Wkfakdx-Zfksfqm Work Phone: Start: 06-15-2020 End: 06-15-2020 Postop follow up visit related to original px Santiagojeanne Bates Work Phone: [facility] Comment on above: Status post reverse arthroplasty of left shoulder (Primary Dx) Start: 05-18-2020 End: 05-18-2020 Postop follow up visit related to original px Snatiagojeanne Bates Work Phone: [facility] Comment on above: Status post reverse arthroplasty of left shoulder (Primary Dx) Start: 05-12-2020 Patient encounter procedure Don Barrera MD LZ-Qrffumc-Rpvpmjz Work Phone: Start: 04-27-2020 End: 04-27-2020 Postop follow up visit related to original px Santiago Bates Work Phone: [facility] Comment on above: Status post reverse arthroplasty of left shoulder (Primary Dx); Rotator cuff arthropathy, left Start: 04-07-2020 Patient encounter procedure Don Barrera [facility] Work Phone: Start: 03-08-2020 End: 03-08-2020 Subsequent hospital visit by physician Heather Paredes Work Phone: [facility] Comment on above: Coronary artery dise ase involving [place] coronary artery of [place] heart without angina pectoris Arrived Start: 03-06-2020 End: 03-06-2020 Patient encounter procedure HEATHER PAREDES [facility] Start: 02-24-2020 End: 02-24-2020 Office outpatient visit 15 minutes Santiago Bates Work Phone: [facility] Comment on above: Rotator cuff arthrop athy, left (Primary Dx) Start: 12-15-2019 End: 12-15-2019 Office outpatient visit 10 minutes Vijay Viveros Work Phone: [facility] Comment on above: Nontraumatic complet e tear of left rotator cuff (Primary Dx); Rotator cuff arthropathy, left Start: 12-10-2019 End: 12-10-2019 Subsequent hospital visit by physician Vijay Viveros Work Phone: [facility] Comment on above: Nontraumatic complet e tear of left rotator cuff Start: 12-01-2019 End: 12-01-2019 Documentation procedure Gema Phillips [facility] Start: 11-26-2019 Patient encounter procedure Don Barrera [facility] Work Phone: Start: 11-14-2019 Patient encounter procedure Dioni Elmore [facility] Work Phone: Start: 11-12-2019 Patient encounter procedure Robb Colindres II, MPWT-Llitiak-Xxwrweq Work Phone: Start: 11-12-2019 Patient encounter procedure Gracie Al [facility] Work Phone: Start: 11-07-2019 Patient encounter procedure Santy Teresa [facility] Work Phone: Start: 11-05-2019 Patient encounter procedure Gracie Al [facility] Work Phone: Start: 11-03-2019 Patient encounter procedure Gracie Al [facility] Work Phone: Start: 10-31-2019 Patient encounter procedure Santy Carterspencer [facility] Work Phone: Start: 10-29-2019 Patient encounter procedure Martine Villafuerte [facility] Work Phone: Start: 10-27-2019 End: 10-27-2019 Office outpatient visit 10 minutes Vijay Viveros Work Phone: [facility] Comment on above: Status post left hip replacement (Primary Dx); Nontraumatic complete tear of left rotator cuff Start: 10-27-2019 Patient encounter procedure Martine Villafuerte [facility] Work Phone: Start: 10-24-2019 Patient encounter procedure Santy Moore [facility] Work Phone: Start: 10-21-2019 Patient encounter procedure Dina Callaway [facility] Work Phone: Start: 10-14-2019 Patient encounter procedure Melody Joseph [facility] Work Phone: Start: 10-10-2019 Patient encounter procedure Dioni Mcgrathedwina [facility] Work Phone: Start: 10-08-2019 Patient encounter procedure Robb Colindres II VG-Wctpgbb-Wzkcwmh Work Phone: Start: 10-03-2019 Patient encounter procedure Don Barrera [facility] Work Phone: Start: 09-25-2019 End: 09-25-2019 Home visit Jenifer Greene [facility] Comment on above: SN HH OASIS DISCHARG E PT NON-OASIS/DISCIPL INE DISCHARGE Start: 09-23-2019 End: 09-23-2019 Postop follow up visit related to original px Vijay Viveros Work Phone: [facility] Comment on above: Status post left hip replacement (Primary Dx) Start: 09-22-2019 End: 09-23-2019 Home visit Clemente Mart[facility]nez [facility] [facility] Comment on above: 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 Start: 09-22-2019 End: 09-22-2019 Home visit Jenifer Greene [facility] Home [facility] Comment on above: SN HH ROUTINE VISIT Start: 09-19-2019 End: 09-19-2019 Home visit Jenifer Greene [facility] Comment on above: SN HH ROUTINE VISIT Start: 09-17-2019 End: 09-17-2019 Home visit Clemente Martínez [facility] Comment on above: 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 Start: 09-17-2019 Patient encounter procedure [id number] RAVINDRA UROLOGY NURSE [id number] Work Phone: Start: 09-15-2019 End: 09-15-2019 Documentation procedure Gema Phillips [facility] Start: 09-15-2019 End: 09-15-2019 Home visit Clemente [facility] Comment on above: 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 SN HH ROUTINE VISIT Start: 09-12-2019 End: 09-12-2019 Home visit Milagro Leal [facility] Comment on above: SN HH OASIS START OF CARE PT INITIAL EVALUATIO N Start: 09-11-2019 Patient encounter procedure GLORIA CAMPOSRON [facility] Start: 09-10-2019 End: 09-10-2019 Admission to [facility] Bar[facility] Start: 09-10-2019 End: 09-25-2019 Patient encounter procedure VIJAY VIVEROS [facility] Start: 09-10-2019 End: 09-11-2019 Evaluation and management of inpatient Vijay Brain Viveros Work Phone: [facility]oped[facility] Comment on above: Status post total re placement of left hip (Primary Dx); Arthritis of left hip; Arthritis of left hip Start: 08-19-2019 End: 08-19-2019 Subsequent hospital visit by physician Vijay Viveros Work Phone: [facility] CT Scan Comment on above: Arthritis of left hi p Start: 08-18-2019 Patient encounter procedure Gracie Quezada [facility] Work Phone: Start: 08-13-2019 Patient encounter procedure [facility] Work Phone: Start: 08-11-2019 Patient encounter procedure Kelli Arteaga [facility] Work Phone: Start: 08-08-2019 Patient encounter procedure Dina Callaway [facility] Work Phone: Start: 08-06-2019 Patient encounter procedure Kelli Arteaga [facility] Work Phone: Start: 08-01-2019 Patient encounter procedure Kelli Arteaga [facility] Work Phone: Start: 07-30-2019 Patient encounter procedure Kelli Arteaga [facility] Work Phone: Start: 07-25-2019 Patient encounter procedure Kelli Arteaga [facility] Work Phone: Start: 07-14-2019 End: 07-14-2019 Postop follow up visit related to original px Vijay Viveros Work Phone: [facility] Comment on above: Arthritis of left hi p (Primary Dx) Start: 05-19-2019 End: 05-19-2019 Office outpatient visit 15 minutes Heather Paredes Work Phone: [facility] Comment on above: Coronary artery dise ase involving [place] coronary artery of [place] heart without angina pectoris; Mixed hyperlipidemia Start: 04-28-2019 End: 04-28-2019 Office outpatient new 20 minutes Vijay Viveros Work Phone: [facility] Comment on above: Arthritis of right h ip (Primary Dx); Arthritis of left hip; Lumbar and sacral arthritis Start: 04-22-2018 End: 04-22-2018 Office outpatient visit 15 minutes Heather Paredes Work Phone: [facility] Patient encounter procedure Don Barrera MD [id number] Work Phone: Procedures Date Procedure Procedure Detail Performing Clinician Start: 05-20-2025 Renal function panel Br deepika Madrigal COLLECTIONS CLERK-STEEL HANDLER Work Phone: Start: 05-19-2025 Radiologic exam abdo men 1 view Elaine Madrigal COLLECTIONS CLERK-STEEL HANDLER Work Phone: Start: 05-15-2025 Radiologic exam abdo men 1 view Rajwinder Omer MD Work Phone: Start: 05-15-2025 Glucose quantitative blood xcpt reagent strip Lay Waldrop MD Work Phone: Start: 05-14-2025 SECTION 8 PROPERTY MANAGER MODIFIED BARIUM SWALLOW EVALUATION Rajwinder Omer MD [...] Start: 05-10-2025 Assay of troponin quantitative Santiago Menendez DO Work Phone: Start: 05-10-2025 End: 05-10-2025 Radex hand minimum 3 views Santiago Menendez DO Work Phone: Start: 05-10-2025 Ct thorax w/contrast material Santiago Menendez DO Work Phone: Start: 05-10-2025 Ct cervical spine w/ o contrast material Santiago Menendez DO Work Phone: Start: 05-10-2025 End: 05-10-2025 Ct head/brain w/o contrast material Santiago Menendez DO Work Phone: Start: 05-10-2025 Basic metabolic pane l calcium total Santiago Menendez DO Work Phone: Start: 05-10-2025 Blood typing serolog ic rh (d) Santiago Menendez DO Work Phone: Start: 05-10-2025 Troponin I.cardiac p lindsay - Serum or Plasma by High sensitivity method Santiago Menendez DO Work Phone: Start: 04-10-2025 Radex ribs uni w/posteroant ch minimum 3 views Lincoln King COLLECTIONS CLERK-STEEL HANDLER Work Phone: Start: 11-20-2024 Lipid 1996 panel - S mansi or Plasma Lincoln King COLLECTIONS CLERK-STEEL HANDLER Work Phone: Start: 09-01-2024 Ecg routine ecg w/le ast 12 lds w/i&r Don Barrera MD Work Phone: Start: 07-31-2024 Echo tthrc r-t 2d w/wom-mode compl spec&colr d Otoniel Salcedo MD Work Phone: Start: 06-17-2024 Dup-scan [...] 12 lds trcg only w/o i&r Celso Cande Lemasters DO Work Phone: Start: 12-07-2023 Mri brain brain stem w/o contrast material Celso Baptiste Lemasters DO Work Phone: Start: 12-07-2023 Urnls dip stick/tabl et rgnt auto w/o microscopy Celso D Lemasters DO Work Phone: Start: 12-07-2023 Comprehensive metabo lic panel Celso Baptiste Lemjim DO Work Phone: Start: 11-16-2023 Ecg routine ecg w/le ast 12 lds trcg only w/o i&r Celso Baptiste Lemasters DO Work Phone: Start: 11-15-2023 Assay of troponin quantitative Bhargavi Feliciano PA-C Work Phone: Start: 11-15-2023 Influenza virus A an d B and SARS-CoV-2 (COVID-19) identified in Respiratory specimen by DONY with probe detection Bhargavi Faganpauline PA-C Work Phone: Start: 11-15-2023 Urnls dip stick/tabl et rgnt auto w/o microscopy Bhargavi Gutierrezreshma PA-C Work Phone: Start: 11-15-2023 Radiologic exam ches t single view Bhargavi Gutierrezreshma PA-C Work Phone: Start: 11-15-2023 Ct head/brain w/o contrast material Bhargavi Manpauline PA-C Work Phone: Start: 11-15-2023 End: 11-15-2023 [...] 10-03-2019 Comprehensive metabo lic 2000 panel Don Barrera Start: 10-03-2019 Lipid panel Devan Barrera Start: 09-11-2019 Basic metabolic 2000 panel - Serum or Plasma Vijay Viveros Work Phone: Start: 09-11-2019 Hemoglobin and Hemat ocrit panel - Blood Vijay Viveros Work Phone: Start: 09-10-2019 Radex hip unilateral with pelvis 2-3 views iVjay Viveros Work Phone: Start: 09-10-2019 End: 09-10-2019 [...] AND EJACULATION WITHIN 48 HRS. UROLOGIC CLINICS [facility] VOL24,NO.2, , PG.339 Performed By: #### [id number] #### LUIS MANUEL [employer] [address] [place] [address] Start: 11-18-2014 End: 12-30-2015 History of cataract extraction S/P laser cataract surgery - Both Eyes Delta Bangura MD Work Phone: Biopsy of skin Don Barrera Work Phone: Cataract surgery Kelli Arteaga Fiberoptic colonoscopy Kelli Arteaga History of Inguinal Hernia Repair Kelli Arteaga History Of Prior Surgery Fara Arteaga Comment on above: Cath of both left an d right sides without graft by Dr Paredes in 2010; Prosthetic arthropla sty of the hip Don Barrera Comment on above: L THR, 2019, Kirk baptiste; Repair of shoulder Eligio Barrera Work Phone: Comment on above: reverse lt shoulder relplacement Dr Bates 2019; Tonsillectomy and adenoidectomy Kelli Arteaga Total replacement of hip Chr caesar Barrera Work Phone: Comment on above: L THR, 2018, Kirk baptiste; Plan of Treatment Date Care Activity Detail Author Start: 05-10-2035 DTaP/Tdap/Td Vaccine s (2 - Td or Tdap) DTaP/Tdap/Td Vaccines (2 - Td or Tdap) [facility] Start: 11-20-2029 Lipid panel Lipid Panel [facility] Start: 05-13-2029 Lipid panel Lipid Panel [facility] Start: 11-01-2028 Lipid panel Lipid Panel [facility] Start: 04-30-2028 Lipid panel Lipid Panel [facility] Start: 12-07-2026 Diabetes Screening Diabetes Screenin [facility] Start: 07-22-2026 Diabetes Screening Diabetes Screenin g [facility] Start: 05-20-2026 Diabetes mellitus screening Diabetes Screening [facility] Start: 05-10-2026 Diabetes mellitus screening Diabetes Screening [facility] Start: 01-02-2026 DIABETES SCREEN DIABETES SCREEN [facility] Start: 11-10-2025 Diabetes mellitus screening Diabetes Screening [facility] Start: 07-16-2025 End: 07-16-2025 Patient encounter procedure 07/16/2025 11:30 AM EDT Office Visit [facility] Office [facility] [address] [place] [phone] David Canela, COLLECTIONS CLERK-STEEL HANDLER [address], [address] [place] [phone] [facility] Start: 07-10-2025 End: 07-10-2025 Patient encounter procedure 07/10/2025 8:00 AM EDT Office Visit [facility] [address] [place] [phone] Eladio Kingsley Jr., DPM [address] [phone] [facility] Start: 07-09-2025 End: 07-09-2025 Patient encounter procedure 07/09/2025 11:45 AM EDT Office Visit [facility] Office [facility] [address] [place] [phone] Otoniel Salcedo MD [address], [address] [place] [address] [facility] Start: 06-22-2025 Influenza vaccination Influenza Vacc ine (#1) [facility] Start: 05-29-2025 End: 05-29-2025 Patient encounter procedure 05/29/2025 9:00 AM EDT Office Visit [facility] [address] [place] [address] [place] [address] [place] [address] [facility] Start: 05-20-2025 End: 11-20-2025 Comprehensive metabolic 2000 panel - Serum or Plasma Comprehensive Metabolic Panel Lab Routine Mixed hyperlipidemia Primary hypertension Expected: 05/20/2025 (Approximate), Expires: 11/20/[address] [facility] Work Phone: Comment on above: Expected: 05/20/2025 (Approximate), Expires: 11/20/2025 Start: 05-20-2025 End: 11-20-2025 Lipid 1996 panel - Serum or Plasma Lipid Panel Lab Routine Mixed hyperlipidemia Expected: 05/20/2025 (Approximate), Expires: 11/20/[address] [facility] Work Phone: Comment on above: Expected: 05/20/2025 (Approximate), Expires: 11/20/2025 Start: 05-20-2025 Medicare Annual Wellness Visit Medicare Annual Wellness Visit (AWV) [facility] Start: 05-20-2025 End: 11-20-2025 Prostate specific Ag [Mass/volume] in Serum or Plasma Prostate Specific Antigen, Screen Lab Routine Benign prostatic 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 lower urinary tract symptoms Screening for prostate cancer Expected: 05/20/2025 (Approximate), Expires: 11/20/[address] [facility] Work Phone: Comment on above: Expected: 05/20/2025 (Approximate), Expires: 11/20/2025 Start: 05-20-2025 End: 05-20-2025 Patient encounter procedure 05/20/2025 8:40 AM EDT Office Visit [facility] [address] [phone] Don Barrera MD [address] [address] [facility] Start: 05-19-2025 Medicare Wellness Visit Medicare Wellness Visit [facility] Start: 05-19-2025 End: 05-19-2025 ambulatory 05/19/2025 1:15 PM EDT Evaluation [facility] [address] [place] [phone] Carlos Trimble, PT [address] [facility] [place] [address] [facility] Start: 05-18-2025 End: 05-18-2025 ambulatory 05/18/2025 1:15 PM EDT Evaluation [address] [phone] Carlos Trimble, PT [address] [facility] [place] [address] [facility] Start: 05-12-2025 End: 05-12-2025 Patient encounter procedure 05/12/2025 2:15 PM EDT Office Visit [facility] [address] [place] [address] Raj Parker MD [address] [place] [address] [facility] Internal [facility] Start: 05-07-2025 End: 05-07-2026 XR Cervical spine 2 or 3 Views XR cervical spine 2-3 views Imaging Routine Neck pain Expected: 05/07/2025, Expires: 05/07/2026 [facility] Service Area Work Phone: Comment on above: Expected: 05/07/2025 , Expires: 05/07/2026 Start: 04-10-2025 End: 04-10-2025 Patient encounter procedure 04/10/2025 8:00 AM EDT Office Visit [facility] [address] [place] [phone] Eladio Kingsley Jr., DPM [address] [place] [address] [facility] Start: 03-10-2025 End: 03-10-2025 Patient encounter procedure 03/10/2025 3:30 PM EDT Office Visit [facility] [address] [place] [phone] Delta Bangura MD [address] [place] [address] [facility] Comment on above: amd Start: 02-19-2025 COVID-19 Vaccine (7 - Moderna risk season) COVID-19 Vaccine (7 - Moderna risk season) [facility] Start: 02-19-2025 COVID-19 Vaccine (8 - season) COVID-19 Vaccine (8 - season) [facility] Start: 02-19-2025 COVID-19 Vaccine (8 - Moderna risk ) COVID-19 Vaccine (8 - Moderna risk season) [facility] Start: 02-11-2025 Depression screening using PHQ-9 (Patient Health Questionnaire 9) score [facility] Start: 12-31-2024 End: 12-31-2024 Patient encounter procedure 12/31/2024 8:15 AM EDT Office Visit [facility] Physician [facility] Pod[facility]ry [address] [place] [phone] Eladio Kingsley Jr., DPM [address] [place] [phone] [facility] Start: 11-20-2024 End: 11-20-2025 Cholesterol in LDL [Mass/volume] in Serum or Plasma Cholesterol, LDL Direct Lab Routine Mixed hyperlipidemia Expected: 11/20/2024 (Approximate), Expires: 11/20/[address] [facility] Work Phone: Comment on above: Expected: 11/20/2024 (Approximate), Expires: 11/20/2025 Start: 11-20-2024 End: 11-20-2025 Cobalamin (Vitamin B12) [Mass/volume] in Serum or Plasma Vitamin B12 Lab Routine Anemia, unspecified type Inflammatory polyarthropathy (Multi) Expected: 11/20/2024 (Approximate), Expires: 11/20/2025 [facility] Service Area Work Phone: Comment on above: Expected: 11/20/2024 (Approximate), Expires: 11/20/2025 Start: 11-20-2024 End: 11-20-2025 Ferritin [Mass/volume] in Serum or Plasma Ferritin Lab Routine Anemia, unspecified type Inflammatory polyarthropathy (Multi) Expected: 11/20/2024 (Approximate), Expires: 11/20/[address] [facility] Work Phone: Comment on above: Expected: 11/20/2024 (Approximate), Expires: 11/20/2025 Start: 11-20-2024 End: 11-20-2025 Folate [Mass/volume] in Serum or Plasma Folate Lab Routine Anemia, unspecified type Inflammatory polyarthropathy (Multi) Expected: 11/20/2024 (Approximate), Expires: 11/20/[address] [facility] Work Phone: Comment on above: Expected: 11/20/2024 (Approximate), Expires: 11/20/2025 Start: 11-20-2024 End: 11-20-2024 Patient encounter procedure [facility] Start: 11-15-2024 Diabetes mellitus screening Diabetes Screening [facility] Start: 09-05-2024 End: 09-05-2024 Patient encounter procedure 09/05/2024 8:00 AM EST Office Visit [facility] [address] [place] [phone] Eladio Kingsley Jr., DPM [address] [place] [address] [facility] Start: 09-01-2024 End: 09-01-2025 CBC W Auto Differential panel - Blood CBC and Auto Differential Lab Routine Vertigo Palpitations Expected: 09/01/2024 (Approximate), Expires: 09/01/[address] [facility] Work Phone: Comment on above: Expected: 09/01/2024 (Approximate), Expires: 09/01/2025 Start: 09-01-2024 End: 09-01-2025 Comprehensive metabolic 2000 panel - Serum or Plasma Comprehensive Metabolic Panel Lab Routine Vertigo Palpitations Expected: 09/01/2024 (Approximate), Expires: 09/01/[address] 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 Expected: 07/03/2024 (Approximate), Expires: 07/03/2026 [facility] Service Area Work Phone: Comment on above: Expected: 07/03/2024 (Approximate), Expires: 07/03/2026 Start: 07-03-2024 End: 07-03-2024 Patient encounter procedure 07/03/2024 11:45 AM EDT Office Visit [facility] Building [address] [place] [address] 2nd [place] [address] Otoniel Salcedo MD [address] [place] [address] [address] Level, [address] [place] [address] [facility] Medical Office [facility] Start: 06-26-2024 FUV, Provider: Otoniel Salcedo, Status: Pen, Time: 8:30 AM FUV, Provider: Otoniel Salcedo, Status: Pen, Time: 8:30 AM Brandi baptiste [address] [place] [address] Work Phone: Start: 06-26-2024 End: 06-26-2024 Patient encounter procedure [facility] Start: 06-22-2024 COVID-19 Vaccine ( season) COVID-19 Vaccine ( season) [facility] Start: 06-22-2024 Influenza vaccination Influenza Vacc ine (#1) [facility] Start: 06-06-2024 End: 06-06-2024 Patient encounter procedure 06/06/2024 8:00 AM EDT Office Visit [facility] [address] [place] [phone] Eladio Kingsley Jr., DPM [address] [place] [phone] [facility] Start: 05-19-2024 End: 05-19-2024 Patient encounter procedure 05/19/2024 8:00 AM EDT Office Visit [facility] [address] [place] [phone] Don Barrera MD [address] [place] [phone] [facility] Start: 05-05-2024 End: 11-05-2024 Comprehensive metabolic 2000 panel - Serum or Plasma Comprehensive Metabolic Panel Lab Routine Mixed hyperlipidemia Primary hypertension Expected: 05/05/2024 (Approximate), Expires: 11/05/2024 [facility] Service Area Work Phone: Comment on above: Expected: 05/05/2024 (Approximate), Expires: 11/05/2024 Start: 05-05-2024 End: 11-05-2024 Lipid 1996 panel - Serum or Plasma Lipid Panel Lab Routine Mixed hyperlipidemia Expected: 05/05/2024 (Approximate), Expires: 11/05/[address] [facility] Work Phone: Comment on above: Expected: 05/05/2024 (Approximate), Expires: 11/05/2024 Start: 05-05-2024 Medicare Annual Wellness Visit Medicare Annual Wellness Visit (AWV) [facility] Start: 05-05-2024 End: 11-05-2024 Prostate specific Ag [Mass/volume] in Serum or Plasma Prostate Specific Antigen, Screen Lab Routine Screening for prostate cancer Expected: 05/05/2024 (Approximate), Expires: 11/05/[address] [facility] Work Phone: Comment on above: Expected: 05/05/2024 (Approximate), Expires: 11/05/2024 Start: 05-04-2024 History and physical examination, annual for health maintenance Wellness Visit [facility] Start: 03-10-2024 Diabetes mellitus screening Diabetes Screening [facility] Start: 02-29-2024 End: 02-29-2024 Patient encounter procedure 02/29/2024 8:00 AM EDT Office Visit [facility] [address] [place] [phone] Eladio Kingsley Jr., DPM [address] [place] [address] [facility] Start: 12-23-2023 COVID-19 Vaccine ( season) COVID-19 Vaccine ( season) [facility] Start: 12-19-2023 End: 12-19-2023 ambulatory 12/19/2023 9:15 AM EST Treatment [facility] [place] [address] Guilherme Elmore, PT [address] [facility] [place] [phone] [facility] Start: 12-17-2023 End: 12-17-2023 Patient encounter procedure 12/17/2023 11:20 AM EST Office Visit [facility] [address] [place] [address] Don Barrera MD [address] [place] [address] [facility] Start: 12-14-2023 End: 12-14-2023 ambulatory 12/14/2023 11:30 AM EST Treatment [facility] [place] [address] Cecy Linn, 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 INSTALLER [address] [facility] [place] [address] [facility] Start: 12-12-2023 End: 12-12-2023 ambulatory 12/12/2023 2:15 PM EST Treatment [facility] [place] [address] Guilherme Elmore, PT [address] [facility] [facility] [place] [address] [facility] Start: 12-06-2023 End: 12-06-2023 Patient encounter procedure 12/06/2023 2:00 PM EST Office Visit [facility] [address] [phone] Daysi Arenas, DO [address] [facility], [place] [phone] [facility] Start: 11-30-2023 End: 11-30-2023 Patient encounter procedure 11/30/2023 8:00 AM EST Office Visit [facility] [address] [place] [address] Eladio Kingsley Jr., DPM [address] [place] [phone] [facility] Phys[facility] Start: 11-21-2023 End: 11-21-2023 ambulatory 11/21/2023 3:45 PM EST Evaluation [facility] [address] [place] [address] Guilherme Elmore, PT [address] [facility] [place] [address] [facility] Start: 11-15-2023 End: 11-15-2023 Patient encounter procedure 11/15/2023 8:15 AM EST Office Visit [facility] [address] [address] Daysi Arenas, DO [address] [facility], [address] [address] [facility] Start: 11-06-2023 End: 11-06-2023 Patient encounter procedure 11/06/2023 7:45 AM EST Appointment [place] [phone] [place] [address] [facility] Start: 11-05-2023 End: 11-05-2023 Patient encounter procedure [facility] Start: 11-04-2023 End: 05-04-2024 Cholesterol in LDL [Mass/volume] in Serum or Plasma Cholesterol, LDL Direct Lab Routine Mixed hyperlipidemia Expected: 11/04/2023 (Approximate), Expires: 05/04/[address] [facility] Work Phone: Comment on above: Expected: 11/04/2023 (Approximate), Expires: 05/04/2024 Start: 11-04-2023 End: 05-04-2024 Comprehensive metabolic 2000 panel - Serum or Plasma Comprehensive Metabolic Panel Lab Routine Primary hypertension Expected: 11/04/2023 (Approximate), Expires: 05/04/2024 [facility] Service Area Work Phone: Comment on above: Expected: 11/04/2023 (Approximate), Expires: 05/04/2024 Start: 11-01-2023 End: 11-01-2024 RF Esophagus Views W barium contrast PO FL GI esophagram Imaging Routine 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 Hiatal hernia Expected: 11/01/2023 (Approximate), Expires: 11/01/2024 [facility] Work Phone: Comment on above: Expected: 11/01/2023 (Approximate), Expires: 11/01/2024 Start: 10-31-2023 End: 10-31-2023 Patient encounter procedure 10/31/2023 8:00 AM EST Office Visit [facility] [address] [place] [id number] Eladio Kingsley Jr., DPM [address] [place] [address] [facility] Start: 10-22-2023 Advance Directive Discussion Advance Directive Discussion [facility] Start: 10-22-2023 Behavioral Health Screening Behavioral Health Screening [facility] Start: 10-19-2023 COVID-19 Vaccine (5 - Moderna series) COVID-19 Vaccine (5 - Moderna series) [facility] Start: 10-19-2023 Covid-19 Vaccine () Covid-19 Vaccine () [facility] Start: 10-06-2023 End: 10-06-2024 Urinalysis complete panel - Urine Urinalysis with Reflex Microscopic Lab Routine Dysuria Expected: 10/06/2023 (Approximate), Expires: 10/06/2024 [facility] Service Area Work Phone: Comment on above: Expected: 10/06/2023 (Approximate), Expires: 10/06/2024 Start: 08-06-2023 End: 08-06-2023 Telemedicine consultation with patient 08/06/2023 8:15 AM EDT Telemedicine [facility] [address] [place] [address] Robb Colindres MD [address] [facility], [address] [place] [address] [facility] Start: 06-22-2023 Influenza vaccination [facility] Start: 06-21-2023 FUV, Provider: Otoniel Salcedo, Status: Pen, Time: 8:30 AM FUV, Provider: Otoniel Salcedo, Status: Pen, Time: 8:30 AM KE-Uswelnzgvx-XqmzjaJudy Martini Work Phone: Start: 06-21-2023 Patient encounter procedure Outpatient [facility] Start: 21-Jun-2023 8:30 Otoniel Salcedo Intent [facility] Start: 05-11-2023 End: 05-11-2023 Patient encounter procedure 05/11/2023 8:00 AM EDT Office Visit [facility] [address] [place] [phone] Eladio Kingsley Jr., DPM [address] [place] [address] [facility] Start: 05-04-2023 End: 05-04-2025 Vascular US abdominal aorta anuerysm AAA screening Vascular US abdominal aorta anuerysm AAA screening Vascular Ultrasound Routine Infrarenal abdominal aortic aneurysm (AAA) without rupture ([facility]/H[facility]) Expected: 05/04/2023 (Approximate), Expires: 05/04/[address] [facility] Work Phone: Comment on above: Expected: 05/04/2023 (Approximate), Expires: 05/04/2025 Start: 05-04-2023 EPV, Provider: Don Barrera, Status: Pen, Time: 8:00 AM EPV, Provider: Don Barrera, Status: Pen, Time: 8:00 AM [facility] Work Phone: Start: 04-27-2023 EPV, Provider: Don Barrera, Status: Pen, Time: 8:20 AM EPV, Provider: Don Barrera, Status: Pen, Time: 8:20 AM [facility] Work Phone: Start: 02-09-2023 End: 02-09-2023 Patient encounter procedure 02/09/2023 Office Visit Podiatry Eladio Kingsley Jr., DPM [address] [place] [address] [facility] Start: 11-17-2022 End: 11-17-2022 Patient encounter procedure 11/17/2022 Office Visit Podiatry Eladio Kingsley Jr., DPM [address] [place] [address] [facility] Start: 10-27-2022 EPV, Provider: Don Barrera, Status: Pen, Time: 8:40 AM EPV, Provider: Don Barrera, Status: Pen, Time: 8:40 AM FC-Qjdnfdybce-SeotaoJudy Martini Work Phone: Start: 10-27-2022 Patient encounter procedure [facility] Start: 10-22-2022 ADVANCE DIRECTIVE DISCUSSION ADVANCE DIRECTIVE DISCUSSION [facility] Start: 10-22-2022 DEPRESSION ASSESSMENT DEPRESSION ASS ESSMENT [facility] Start: 09-27-2022 COVID-19 Vaccine (5 - Booster for Moderna series) COVID-19 Vaccine (5 - Booster for Moderna series) [facility] Start: 09-27-2022 COVID-19 Vaccine (5 - Moderna series) COVID-19 Vaccine (5 - Moderna series) [facility] Start: 08-18-2022 End: 08-18-2022 Patient encounter procedure 08/18/2022 Office Visit Podiatry Eladio Kingsley Jr., DPM [address] [place] [id number] [facility] Start: 06-22-2022 Influenza vaccination Sequenti al Influenza Vaccine (#1) [facility] Start: 06-16-2022 COVID-19 Vaccine (5 - Booster for Moderna series) COVID-19 Vaccine (5 - Booster for Moderna series) [facility] Start: 06-15-2022 NPV, Provider: Otoniel Salcedo, Status: Pen, Time: 8:30 AM NPV, Provider: Otoniel Salcedo, Status: Pen, Time: 8:30 AM [facility] Work Phone: Start: 05-19-2022 End: 05-19-2022 Patient encounter procedure 05/19/2022 Office Visit Podiatry Eladio Kingsley Jr., DPMonty [address] [place] [address] [facility] Start: 05-17-2022 FUV, Provider: Robb Colindres II, Status: Pen, Time: 1:00 PM FUV, Provider: Robb Colindres II, Status: Pen, Time: 1:00 PM [facility] Work Phone: Start: 04-26-2022 EPV, Provider: Don Barrera, Status: Pen, Time: 8:20 AM EPV, Provider: Don Barrera, Status: Pen, Time: 8:20 AM [facility] Work Phone: Start: 03-08-2022 COVID-19 Vaccine (4 - Booster for Moderna series) COVID-19 Vaccine (4 - Booster for Moderna series) [facility] Start: 02-03-2022 End: 02-03-2022 Patient encounter procedure 02/03/2022 Office Visit Podiatry Eladio Kingsley Jr., DPM [address] [place] [address] [facility] Start: 12-09-2021 COVID-19 Vaccine (4 - Booster for Moderna series) COVID-19 Vaccine (4 - Booster for Moderna series) [facility] Start: 11-15-2021 FUV, Provider: Zoran Bennett, Status: Pen, Time: 11:15 AM FUV, Provider: Zoran Bennett, Status: Pen, Time: 11:15 AM [facility] Work Phone: Start: 10-26-2021 EPV, Provider: Don Barrera, Status: Pen, Time: 8:00 AM EPV, Provider: Don Brarera, Status: Pen, Time: 8:00 AM [place] [facility] Work Phone: Start: 08-12-2021 End: 08-12-2021 Patient encounter procedure [facility] Start: 07-01-2021 End: 07-01-2021 Patient encounter procedure 07/01/2021 Office Visit Sports Medicine Vijay Viveros MD [address] [place] [address] [phone] [facility] Start: 06-23-2021 PTRECHADREAL, Provider : Dioni Elmore, Status: Pen, Time: 1:15 PM JOYCE, Provider: Dioni Elmore, Status: Pen, Time: 1:15 PM [facility] Work Phone: Start: 06-22-2021 Influenza vaccination Sequenti al Influenza Vaccine (#1) [facility] Start: 06-21-2021 PTFUADULT4, Provider : Santy Moore, Status: Pen, Time: 1:15 PM PTFUADULT4, Provider: Santy Moore, Status: Pen, Time: 1:15 PM [facility] Work Phone: Start: 06-21-2021 PTFUADULT4, Provider : Dina Callaway, Status: Pen, Time: 1:15 PM PTFUADULT4, Provider: Dina Callaway, Status: Pen, Time: 1:15 PM [facility] Work Phone: Start: 06-16-2021 PTFUADULT4, Provider : Santy Moore, Status: Pen, Time: 1:15 PM PTFUADULT4, Provider: Santy Moore, Status: Pen, Time: 1:15 PM [facility] Work Phone: Start: 06-14-2021 PTFUADULT4, Provider : Santy Moore, Status: Pen, Time: 1:15 PM PTFUADULT4, Provider: Santy Moore, Status: Pen, Time: 1:15 PM [facility] Work Phone: Start: 06-10-2021 PTFUADULT4, Provider : eCcy Linn, Status: Pen, Time: 10:00 AM PTFUADULT4, Provider: Cecy Linn, Status: Pen, Time: 10:00 AM [facility] Work Phone: Start: 06-07-2021 PTFUADULT4, Provider : Santy Moore, Status: Pen, Time: 2:45 PM PTFUADULT4, Provider: Santy Moore, Status: Pen, Time: 2:45 PM [facility] Work Phone: Start: 06-02-2021 PTFUADULT4, Provider : Eyster,Cornelius, Status: Pen, Time: 10:00 AM PTFUADULT4, Provider: Cornelius Moses, Status: Pen, Time: 10:00 AM [facility] Work Phone: Start: 05-30-2021 PTFUADULT4, Provider : Dioni Elmore, Status: Pen, Time: 5:15 PM PTFUADULT4, Provider: Dioni Elmore, Status: Pen, Time: 5:15 PM [facility] Work Phone: Start: 05-20-2021 End: 05-20-2021 Patient encounter procedure [facility] Start: 05-18-2021 FUV, Provider: Robb Colindres II, Status: Pen, Time: 1:00 PM FUV, Provider: Robb Colindres II, Status: Pen, Time: 1:00 PM [facility] Work Phone: Start: 05-13-2021 End: 05-13-2021 Patient encounter procedure [facility] Start: 05-09-2021 End: 05-09-2021 Patient encounter procedure 05/09/2021 Office Visit Cardiology Heather Paredes MD [address] [place] [address] [phone] [facility] Office Start: 11-24-2020 COVID-19 Vaccine (2 - Moderna 2-dose series) COVID-19 Vaccine (2 - Moderna 2-dose series) [facility] Start: 11-19-2020 End: 11-19-2020 Office Visit 11/19/2020 Office Visit Sports Medicine Vijay Viveros MD [address] [place] [address] [phone] [facility] Start: 10-12-2020 End: 10-12-2020 Office Visit 10/12/2020 Office Visit Sports Medicine Santiago Bates MD [address] [place] [address] [phone] [facility] Start: 07-13-2020 End: 07-13-2020 Follow-Up 07/13/2020 Follow-Up Sports Medicine Santiago Bates MD [address] [place] [address] [phone] [facility] Start: 06-22-2020 Influenza vaccinatio n given [facility] Start: 06-15-2020 End: 06-15-2020 Follow-Up 06/15/2020 Follow-Up Sports Medicine Santiago Bates MD [address] [place] [address] [place] [address] [phone] [facility] Start: 05-18-2020 End: 05-18-2020 Follow-Up 05/18/2020 Follow-Up Sports Medicine Santiago Bates MD [address] [place] [address] [place] [address] [phone] [facility] Start: 05-10-2020 End: 05-10-2020 Office Visit 05/10/2020 Office Visit Cardiology Heather Paredes MD [address] [place] [address] [phone] [facility] Office Start: 05-03-2020 End: 05-03-2020 Office Visit 05/03/2020 Office Visit Cardiology Heather Paredes MD [address] [place] [address] [phone] [facility] Office Start: 12-15-2019 End: 12-15-2019 Follow-Up 12/15/2019 Follow-Up Sports Medicine Vijay Viveros MD [address] [facility] [place] [address] [phone] [facility] Start: 12-08-2019 End: 12-08-2019 Follow-Up 12/08/2019 Follow-Up Sports Medicine Vijay Viveros MD [address] [place] [address] [phone] [facility] Start: 11-13-2019 Ultrasound Kid neida Bilateral FY-Okuttr[facility]-Mubjjqx Work Phone: Start: 11-06-2019 End: 11-06-2019 Appointment 11/06/2019 Appointment Home Health Services Jenifer Greene RN [facility] Start: 11-03-2019 End: 11-03-2019 Home Care Visit 11/03/2019 Home Care Visit Home Health Services Jenifer Greene RN [facility] Start: 10-31-2019 End: 10-31-2019 Home Care Visit 10/31/2019 Home Care Visit Home Health Services Jenifer Greene RN [facility] Start: 10-27-2019 End: 10-27-2019 Follow-Up 10/27/2019 Follow-Up Sports Medicine Vijay Viveros MD [address] [place] [address] [phone] [facility] Start: 10-27-2019 End: 10-27-2019 Home Care Visit 10/27/2019 Home Care Visit Home Health Services Jenifer Greene RN [facility] Start: 10-24-2019 End: 10-24-2019 Home Care Visit 10/24/2019 Home Care Visit Home Health Services Jenifer Greene RN [facility] Start: 10-20-2019 End: 10-20-2019 Home Care Visit 10/20/2019 Home Care Visit Home Health Services Jenifer Greene RN [facility] Start: 10-17-2019 End: 10-17-2019 Home Care Visit 10/17/2019 Home Care Visit Home Health Services Jenifer Greene RN [facility] Start: 10-13-2019 End: 10-13-2019 Home Care Visit 10/13/2019 Home Care Visit Home Health Services Jenifer Greene RN [facility] Start: 10-10-2019 End: 10-10-2019 Home Care Visit 10/10/2019 Home Care Visit Home Health Services Jenifer Greene RN [facility] Start: 10-06-2019 End: 10-06-2019 Home Care Visit 10/06/2019 Home Care Visit Home Health Services Jenifer Greene RN [facility] Start: 10-03-2019 End: 10-03-2019 Home Care Visit 10/03/2019 Home Care Visit Home Health Services Jenifer Greene RN [facility] Start: 10-02-2019 End: 10-02-2019 Home Care Visit 10/02/2019 Home Care Visit Home Health Services Jenifer Greene RN [facility] Start: 09-29-2019 End: 09-29-2019 Home Care Visit 09/29/2019 Home Care Visit Home Health Services Jenifer Greene RN [facility] Start: 09-26-2019 End: 09-26-2019 Home Care Visit 09/26/2019 Home Care Visit Home Health Services Jenifer Greene RN [facility] Start: 09-25-2019 End: 09-25-2019 Home Care Visit [facility] Start: 09-23-2019 End: 09-23-2019 Follow-Up 09/23/2019 Follow-Up Sports Medicine Vijay Viveros MD [address] [place] [address] [phone] [facility] Start: 09-22-2019 End: 09-22-2019 Home Care Visit [facility] Start: 09-19-2019 End: 09-19-2019 Home Care Visit 09/19/2019 Home Care Visit Home Health Services Jenifer Greene RN [facility] Start: 09-17-2019 End: 09-17-2019 Home Care Visit 09/17/2019 Home Care Visit Home Health Services Clemente Martínez PTA [facility] Start: 09-15-2019 End: 09-15-2019 Home Care Visit 09/15/2019 Home Care Visit Home Health Services Jenifer Greene RN [facility] Start: 09-12-2019 End: 09-12-2019 Appointment 09/12/2019 Appointment Home Health Services Milagro Leal RN [facility] Start: 09-12-2019 End: 09-12-2019 Home Care Visit 09/12/2019 Home Care Visit Home Health Services Chary Mayorga PT [facility] Start: 09-10-2019 End: 09-10-2019 Hospital Encounter [facility] Comment on above: 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 [employer] Start: 08-25-2019 End: 08-25-2019 Surgical Consult 08/25/2019 Surgical Consult Sports Medicine Vijay Viveros MD [address] [place] [address] [phone] [facility] Start: 06-22-2019 Influenza vaccinatio n given SEQUENTIAL INFLUENZA VACCINE (#1) [facility] Start: 05-19-2019 End: 05-19-2019 Office Visit 05/19/2019 Office Visit Cardiology Heather Paredes MD [address] [place] [address] [phone] [facility] Office Start: 06-22-2018 Influenza vaccination SEQUENTI AL INFLUENZA VACCINE (#1) [facility] Start: 10-11-2017 Pneumococcal vaccination Pneumococcal Vaccine Age 65+ (2 of 2 - PPSV23) [facility] Start: 2011 Respiratory Syncytia l Virus Immunization: Risk, 60-74 Risk, or 75+ (1 - 1-dose 75+ series) Respiratory Syncytial Virus Immunization: Risk, 60-74 Risk, or 75+ (1 - 1-dose 75+ series) [facility] Start: 2001 Fall risk assessment Falls Risk Asse ssment [facility] Start: 2001 Pneumococcal vaccination PNEUMOCOCCAL VACCINE AGE 65+ (1 of 2 - PCV13) [facility] Start: 1996 RSV patient s and/or patients aged 60+ years (1 - 1-dose 60+ series) RSV patients and/or patients aged 60+ years (1 - 1-dose 60+ series) [facility] Start: 1996 RSV Vaccine (1 - 1-dose 60+ series) RSV Vaccine (1 - 1-dose 60+ series) [facility] Start: 1996 Zoster vaccine hzv live for subcutaneous use ZOSTER VACCINE [facility] Start: 1986 Administration of herpes zoster vaccine Zoster Vaccines (1 of 2) [facility] Start: 1958 DTaP/Tdap/Td Vaccine s (1 - Tdap) DTaP/Tdap/Td Vaccines (1 - Tdap) [facility] Start: 1955 SHINGRIX VACCINE (1 of 2) SHINGRIX VACCINE (1 of 2) [facility] Start: 1955 Urine microalbumin profile [facility] Start: 1948 Adolescent depressio n screening assessment Depression Screening (PHQ9) [facility] Start: 1948 Depression screening using PHQ-9 (Patient Health Questionnaire 9) score [facility] Start: 1942 Pneumococcal Vaccine : Age 65+ (1 of 2 - PPSV23) Pneumococcal Vaccine: Age 65+ (1 of 2 - PPSV23) [facility] Start: 1942 PNEUMOCOCCAL: 65+ (1 - PCV) PNEUMOCOCCAL: 65+ (1 - PCV) [facility] Start: 1939 History and physical examination, annual for health maintenance Wellness Visit [facility] Start: 1936 Depression screening using PHQ-9 (Patient Health Questionnaire 9) score DEPRESSION SCREENING (PHQ9) [facility] Start: 1936 Fall risk assessment Falls Risk Asse ssment [facility] Start: 1936 Medicare Annual Wellness Visit Medicare Annual Wellness Visit (AWV) [facility] Start: 1936 End: 1936 Tetanus vaccination [facility] Comprehensive metabolic 2000 panel Comprehensive Metabolic Panel [facility] Work Phone: Comment on above: Approx [id number] Approx [id number] End: 07-22-2023 ECG 12 lead ECG 12 lead ECG STAT Once for 1 Occurrences starting 07/22/2023 until 07/22/2023 [facility] Service Area Work Phone: Comment on above: Once for 1 Occurrenc es starting 07/22/2023 until 07/22/2023 End: 11-11-2023 ECG 12 lead [facility] Service Area Work Phone: Comment on above: Once for 1 Occurrenc es starting 11/11/2023 until 11/11/2023 End: 11-15-2023 ECG 12 Lead [facility] Service Area Work Phone: Comment on above: Once for 1 Occurrenc es starting 11/15/2023 until 11/15/2023 ECG 12 lead ECG 12 lead ECG STAT 12/07/2023 12:[address] [facility] Work Phone: End: 05-10-2025 ECG 12 lead ECG 12 lead ECG STAT Once for 1 Occurrences starting 05/10/2025 until 05/10/2025 [facility] Service Area Work Phone: Comment on above: Once for 1 Occurrenc es starting 05/10/2025 until 05/10/2025 End: 11-11-2023 Extra Urine Callaway Tube Extra Urine [facility] T[facility] Lab Timed Once for 1 Occurrences starting 11/11/2023 until 11/11/[address] [facility] Work Phone: Comment on above: Once for 1 Occurrenc es starting 11/11/2023 until 11/11/2023 End: 11-15-2023 Extra Urine [place] Tube Extra Urine [place] Tube Lab Timed Once for 1 Occurrences starting 11/15/2023 until 11/15/[address] [facility] Work Phone: Comment on above: Once for 1 Occurrenc es starting 11/15/2023 until 11/15/2023 End: 12-07-2023 Extra Urine Callaway Tube [facility] Work Phone: Comment on above: Once for 1 Occurrenc es starting 12/07/2023 until 12/07/2023 History of cataract extraction History of cataract extraction [facility] History of hernia repair History of hernia repair [facility] History of tonsillectomy History of tonsillectomy and adenoidectomy [facility] End: 09-02-2024 Holter monitor study [facility] Service Area Work Phone: Comment on above: Once for 1 Occurrenc es starting 09/02/2024 until 09/02/2024 End: 05-11-2025 Incentive spirometry Instruct Incentive spirometry Instruct Respiratory Care Routine Once for 1 Occurrences starting 05/11/2025 until 05/11/2025 [facility] Service Area Work Phone: Comment on above: Once for 1 Occurrenc es starting 05/11/2025 until 05/11/2025 Lipid panel Lipid Panel [facility] Work Phone: Comment on above: Approx [id number] End: 07-29-2024 MR Lumbar spine WO contrast [facility] Service Area Work Phone: Comment on above: Once for 1 Occurrenc es starting 07/29/2024 until 07/29/2024 End: 07-29-2024 MR Pelvis WO contrast [facility] Service Area Work Phone: Comment on above: Once for 1 Occurrenc es starting 07/29/2024 until 07/29/2024 Procedure on tissue specimen [facility] Comment on above: Release Upon Orderin g for 1 Occurrences starting 09/10/2019, 1 completed End: 11-15-2023 Pulse oximetry, continuous Pulse oximetry, continuous Respiratory Care STAT Continuous until discontinued starting 11/15/2023 [facility] Work Phone: Comment on above: Continuous until dis continued starting 11/15/2023 Serum LDL cholestero l measurement LDL, Direct, Serum [facility] Work Phone: Comment on above: Approx [id number] End: 11-11-2023 Urinalysis complete W Reflex Culture panel - Urine [facility] Work Phone: Comment on above: Once (Lab) for 1 Occ urrences starting 11/11/2023 until 11/11/2023 End: 11-15-2023 Urinalysis complete W Reflex Culture panel - Urine [facility] Work Phone: Comment on above: STAT (Lab) for 1 Occ urrences starting 11/15/2023 until 11/15/2023 End: 12-07-2023 Urinalysis complete W Reflex Culture panel - Urine [facility] Work Phone: Comment on above: Once (Lab) for 1 Occ urrences starting 12/07/2023 until 12/07/2023 End: 05-08-2025 XR Cervical spine 2 or 3 Views [facility] Service Area Work Phone: Comment on above: Once for 1 Occurrenc es starting 05/08/2025 until 05/08/2025 End: 06-12-2024 XR Hip Views [facility] Service Area Work Phone: Comment on above: Once for 1 Occurrenc es starting 06/12/2024 until 06/12/2024 End: 03-27-2024 XR Shoulder - right 2 Views [facility] Service Area Work Phone: Comment on above: Once for 1 Occurrenc es starting 03/27/2024 until 03/27/2024 [facility] NEGATED: Highlighted row has been ruled out! Planned Goals not documented [facility] Work Phone: Immunizations Immunization Date Immunization Notes Care Provider Fa marcus 05-10-2025 tetanus toxoid, redu lamar diphtheria toxoid, and acellular pertussis vaccine, adsorbed Santiago Menendez DO Work Phone: [facility] 08-22-2024 Moderna COVID-19 vaccine, 12 years and older (50mcg/0.5mL)(Spikevax) Don Barrera MD Work Phone: [facility] Work Phone: 07-28-2024 RSV, 60 Years And Ol rajni (AREXVY) [facility] Work Phone: 07-07-2024 influenza virus vaccine, unspecified formulation [facility] Work Phone: 08-24-2023 Moderna COVID-19 vaccine, Fall 2022, 12 yeasrs and older (50mcg/0.5mL) Don Barrera MD Work Phone: [facility] Work Phone: 07-16-2023 influenza, high dose seasonal, preservative-free Don Barrera MD Work Phone: [facility] Work Phone: 07-16-2023 influenza virus vaccine, unspecified formulation Eladio Kingsley Jr., DPM Work Phone: [facility] 08-02-2022 Moderna COVID-19 Biv al Booster 50 MCG/0.5ML Intramuscular Suspension Don Barrera Work Phone: [facility] Work Phone: 08-02-2022 Moderna SARS-CoV-2 Vaccination Don Barrera MD Work Phone: [facility] Work Phone: 02-14-2022 Moderna COVID-19 Vaccine 100 MCG/0.5ML Intramuscular Suspension Don Barrera Work Phone: [facility] 09-08-2021 Moderna COVID-19 Vaccine 100 MCG/0.5ML Intramuscular Suspension Don Barrera Work Phone: [facility] Work Phone: 07-19-2021 influenza, high dose seasonal, preservative-free Don Barrera Work Phone: [facility] Work Phone: 07-19-2021 influenza, seasonal, injectable Don Barrera Work Phone: [facility] Work Phone: Comment on above: Series: 07-19-2021 influenza virus vaccine, unspecified formulation Don Barrera MD Work Phone: [facility] Work Phone: 11-24-2020 Moderna COVID-19 Vaccine 100 MCG/0.5ML Intramuscular Suspension Don Barrera MD ES[facility] Work Phone: Comment on above: Series: 10-27-2020 Moderna COVID-19 Vaccine 100 MCG/0.5ML Intramuscular Suspension Dno Barrera MD XV[facility] Work Phone: Comment on above: Series: 10-11-2020 pneumococcal polysaccharide vaccine, 23 valent; Translations: [Pneumococcal polysaccharide vaccine, 23 valent] Don Barrera MD [facility] Comment on above: Series: 07-26-2020 influenza, high dose seasonal, preservative-free; Translations: [Influenza, high dose seasonal, preservative-free] Don Barrera MD TN[facility] Work Phone: Comment on above: Series: 10-08-2018 zoster vaccine recombinant [place] Baptiste Yuri Work Phone: [facility] Work Phone: 08-05-2018 zoster vaccine recombinant Don Sheltond Work Phone: [facility] Work Phone: 07-25-2018 influenza, high dose seasonal, preservative-free Don Barrera Work Phone: [facility] Work Phone: 10-11-2016 pneumococcal conjuga te vaccine, 13 valent Don Barrera [facility] Work Phone: Comment on above: Series: 10-04-2009 novel gvurmhedm-F7W6-20, preservative-free, injectable Alokailyndequan Barrera Work Phone: [facility] Work Phone: Payers Date Payer Category Payer Self-pay 2022 Medicare supplementa l policy (as second payer) AARP [id number] 2015 Miscellaneous or Other AARP COMM ERCIAL [id number] 2015 Unknown [id number] 1.2.840.736788.1.13.385. 2.7.3.119375.315 2013 Private Health Insurance [facility] SUPPLEMENT [id number] 2013-Present [phone] [address] [place] [address] Indemnity [id number]. 2.7.3.149388.315 2013 Unknown [id number] 2001 Medicare xxxxxxxxxxx 1.2.840.932017.1.13.385. 2.7.3.130528.315 2001 Medicare [id number] 2001 Medicare [id number] 1.2.840.239615.1.13.385. 2.7.3.203942.315 2001 Medicare 1.2.840.991836. 1.13.385. 2.7.3.913404.315 2001 Unknown 2001 Medicare [id number] 1936 Unknown [id number] 2.16.840.1.264071.3.579. 2.903 1936 Unknown [id number] 2.16.840.1.513545.3.579. 2.903 1936 Unknown [id number] 2.16.840.1.504195.3.579. 2.900 1936 Unknown [id number] 2.16.840.1.794078.3.579. 2.1068 1936 Unknown [id number] 2.16.840.1.217203.3.579. 2.1068 1936 Unknown [id number] 2.16.840.1.771953.3.579. 2.1068 1936 Unknown [id number] 2.16840.1.015274.3.579. 2.1068 1936 Unknown [id number] 2.16840.1.912098.3.579. 2. 1936 Unknown [id number] 2.16840.1.610649.3.579. 2. 1936 Unknown [id number] 2.0.1.270506.3.579. 2. 1936 Unknown [id number] 2.840.1.836259.3.579. 2. 1936 Unknown [id number] 2.840.1.268068.3.579. 2.1243 1936 Unknown [id number] 2.840.1.304551.3.579. 2.1243 1936 Unknown [id number] 2.840.1.463535.3.579. 2.1243 1936 Unknown [id number] 2.840.1.851806.3.579. 2.1243 1936 Unknown [id number] 2.16840.1.575524.3.579. 2.1243 1936 Unknown [id number] 2.16840.1.985206.3.579. 2.1242 1936 Unknown [id number] 2.16840.1.443855.3.579. 2.1242 1936 Unknown [id number] 2.16.840.1.665965.3.579. 2.1242 1936 Unknown [id number] 2.16.840.1.874603.3.579. 2.1242 1936 Unknown [id number] 2.16.840.1.758579.3.579. 2.1242 1936 Unknown [id number] 2.16.840.1.776171.3.579. 2.1242 1936 Unknown [id number] 2.16.840.1.040850.3.579. 2.1242 1936 Unknown [id number] 2.840.1.705836.3.579. 2.1242 1936 Unknown [id number] 2.16840.1.406529.3.579. 2.1242 1936 Unknown [id number] 2.840.1.727196.3.579. 2.1242 1936 Unknown [id number] 2.840.1.270871.3.579. 2. 1936 Unknown [id number] 2.840.1.182398.3.579. 2.1244 1936 Unknown [id number] 2.840.1.908779.3.579. 2.1244 1936 Unknown [id number] 2.16840.1.582324.3.579. 2.1244 1936 Unknown [id number] 2.840.1.000987.3.579. 2.1244 1936 Unknown [id number] 2.16840.1.192092.3.579. 2.1244 1936 Unknown [id number] 2.16840.1.661672.3.579. 2.124 Unknown [id number] 2.16840.1.392454.3.579. 2.462 Unknown [id number] 2.16.840.1.146630.3.579. 2.462 Unknown [id number] 2.16.840.1.302603.3.579. 2.462 Social History Date Type Detail Facility Start: 04-22-2018 End: 05-19-2024 Tobacco smoking status NHIS Former smoker [facility] Start: 1935 Sex Assigned At Not on file [facility] Start: 05-31-2016 Tobacco Comment quit 25+yrs ago [facility] Start: 07-14-2019 End: 04-10-2025 Alcohol intake Current non-drinker of alcohol (finding) [facility] Start: 08-19-2019 End: 05-19-2022 Tobacco Comment quit 25+yrs ago pipe [facility] Start: 02-05-2022 End: 11-20-2024 Exposure to SARS-CoV-2 (event) Not sure [facility] Start: 06-15-2020 End: 05-19-2024 Tobacco use and exposure Never used [facility] Start: 11-17-2022 End: 05-11-2025 Former smoker Former smoker [facility] Work Phone: End: 10-22-1962 History of tobacco use Current smoker [facility] End: 10-22-1962 History of tobacco use Cigarette Smoker [facility] Tobacco smoking consumption unknown [facility] Start: 11-17-2022 End: 05-11-2025 Tobacco use panel [facility] Start: 04-28-2019 Gender identity Identifies as male gender (finding) [facility] Start: 04-28-2019 Sexual orientation Heterosexual (fin ding) [facility] Start: 11-18-2014 Tobacco smoking status NHIS Never smoked tobacco [facility] Start: 02-21-2023 End: 05-10-2025 Alcohol intake Ex-drinker (finding) [facility] Start: 1935 Sex Assigned At [facility] Start: 09-15-2022 National Score (1-100), lower number is lower risk 80 [facility] History of tobacco use Pipe Smoker [facility] Work Phone: History of tobacco use Passive smoker [facility] Work Phone: (I/We) worried whether (my/our) food would run out before (I/we) got money to buy more. Never true [facility] Work Phone: In the past 12 months, was there a time when you were not able to pay the mortgage or rent on time? No [facility] Work Phone: NEGATED: Highlighted row - - [facility] Work Phone: Medical Equipment Procedure Code Equipment Code Equipment Original Text Equipment Identifier Dates Cup 54mm Cluster Milian Trident Psl - [id number] ()[id number], [id number] FDA Start: 09-10-2019 Insert 36mm 10de g F Comp X3 Trident - [id number] ()[id number], [id number] FDA Start: 09-10-2019 Stem 127deg Sz6 Fem Accolade Ii - [id number] ()[id number], [id number] FDA Start: 09-10-2019 Head 36mm 5mm V4 0 Fem Lfit Anatomic - [id number] ()[id number], [id number] FDA Start: 09-10-2019 Humeral Insert 3 2 Mm Case [id number] Start: 04-12-2020 Comment on above: Description: Convert ed from [facility]. Please see archived information for full log information. Glenosphere, Concentric, 32mm, Mary Jo X 2mm Thk Case [id number] Start: 04-12-2020 Comment on above: Description: Convert ed from [facility]. Please see archived information for full log information. Clip, Aneurysm, Yasargil, Std, Perm, Fen, 9mm,150g, Ti Case [id number] Start: 04-12-2020 Comment on above: Description: Convert ed from [facility]. Please see archived information for full log information. Screw, Eripheral , 4.5mm X 24mm Case [id number] Start: 04-12-2020 Comment on above: Description: Convert ed from [facility]. Please see archived information for full log information. Screw, Eripheral , 4.5mm X 24mm Case [id number] Start: 04-12-2020 Comment on above: Description: Convert ed from [facility]. Please see archived information for full log information. Humeral Stem Padma e [id number] Start: 04-12-2020 Comment on above: Description: Convert ed from [facility]. Please see archived information for full log information. Screw, Peripheral, 4.5mm X 28mm Case [id number] Start: 04-12-2020 Comment on above: Description: Convert ed from [facility]. Please see archived information for full log information. Baseplate, Gleniod, 28mm Case [id number] Start: 04-12-2020 Comment on above: Description: Convert ed from [facility]. Please see archived information for full log information. Screw, Peripheral, 4.5mm X 16mm Case [id number] Start: 04-12-2020 Comment on above: Description: Convert ed from [facility]. Please see archived information for full log information. Cup, Humeral, 32mm, Mary Jo X 4mm Thk Case [id number] Start: 04-12-2020 Comment on above: Description: Convert ed from [facility]. Please see archived information for full log information. 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 Work Phone: NEGATED: Highlighted row Functional performance Functional status health issues are not documented [facility] Work Phone: Mental Status Date Assessment Result Facility NEGATED: Highlighted row Cognitive function [Interpretation] Cognitive status health issues are not documented [facility] Work Phone: Clinical Notes 11-18-2014 to 05-20-2025 Miesha Kelly RN - 05/20/2025 2:01 PM Angelina Kelly RN - 05/20/2025 9:27 AM EDTBlópez Madrigal, COLLECTIONS CLERK-STEEL HANDLER - 05/19/2025 4:00 PM EDTJannette Guidry, PT - 05/19/2025 2:27 PM EDT Note Date & Type Note Facility 05-20-2025 Note [facility] Medical Records Department [address] [place] [address] History Physical Exam 05/20/252129 MR#: [id number] Acct: [id number] Name: FAWN CAMERON Rep #: [id number] : 1935 89 From: Jesus Alberto Wiggins MD PCP: Dr. Devan Barrera MD Status:ADM IN Location: [place] [address] HPI - General General Date of Admission: 05/20/25 Date of Service: 05/20/25 Chief Complaint: Here for rehabilitation. HPI Narrative FAWN CAMERON, is a 89 Male who presents with followin05/10/2025 Admit [facility]. 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 Injuries: 1. Right orbital floor. 2. Buckle fracture right anterior cranial floor/orbital roof. 3. Small right subdural hematoma. 4. Trace right frontal SAH. 5. Bilateral pubic rami fracture with extension to acetabular wall. 6. Nondisplaced Sacral ala fracture right. Incidental findings: 1. AAA 4.7cm. 2. Left common iliac aneurysm.. 3. Right common iliac aneurysm. Neurosurgery recommended Keppra 500mg bid, sbp < 160, hold anticoagulation, neuro checks q4h, for SAH/SDH. No surgery for right orbital roof fracture. PT/OT/CM for discharge planning. 05/12/2025 Restart Aspirin 81mg daily 05/17/2025. WBAT bilateral lower extremity for bilateral pubic rami fracture. 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 05/15/2025 No acute events overnight. Dobbhoff tube placed for TF. 05/16/2025 Advance TF to goal. 05/18/2025 No acute events overnight. Dizzy with PT. 05/19/2025 PT/OT/CM for SNF. 05/20/2025 Admit to TCU with debility, here for rehabilitation, strengthening, prior to discharge home with . [facility] Medical History (Updated 05/20/25 @ 21:[address] Jesus Alberto Wiggins MD) Dysphagia Hyperlipidemia Depression BPH (benign prostatic hyperplasia) TIA (transient ischemic attack) Coronary artery disease Carotid artery stenosis Osteoarthritis Essential (primary) hypertension GERD (gastroesophageal reflux disease) Sacral fracture Bilateral pubic rami fractures SAH (subarachnoid hemorrhage) SDH (subdural hematoma) Orbital roof fracture Orbital floor fracture Debility Home Medications ???Medication ???Instructions ???Recorded ???Last Taken ???Type acetaminophen 325 mg capsule 650 mg feeding tube Q6H Pain 05/2005/20/25 10:20 History alfuzosin 10 mg tablet,extended 10 mg PO DAILY BPH 05/20/25 Unknow n History release 24 hr amitriptyline 10 mg tablet 10 mg feeding tube QHS Mood Unknown History amlodipine 5 mg tablet 5 mg feeding tube DAILY BP 5 Unknown History aspirin 81 mg tablet 81 mg PO DAILY Heart 05/20/25 Unkn own History benazepril 40 mg tablet 40 mg feeding tube DAILY BP Unknown History bisacodyl 5 mg tablet 5 mg PO DAILY PRN constipation Unknown History cholecalciferol (vitamin D3) 125 125 mcg feeding tube DAILY 5 05/20/25 10:20 History mcg (5,000 unit) tablet Supplement cyanocobalamin (vitamin B-12) 1,000 mcg PO DAILY Supplement 04/2305/20/25 10:25 History 1,000 mcg capsule enoxaparin 30 mg/0.3 mL 30 mg subcut Q12H DVT prophylaxis 05/20/25 05/20/25 12:30 History subcutaneous syringe escitalopram oxalate 5 mg tablet 5 mg feeding tube DAILY Mood 05/20 Unknown History folic acid 1 mg tablet 2 mg feeding tube DAILY Supplement 05/20/25 Unknown History methotrexate sodium 5 mg tablet 20 mg feeding tube QWEEK Arthritis 05/20/25 Unknown History (Trexall) metoprolol tartrate 25 mg tablet 25 mg feeding tube BID BP 05/20/25 Unknown History omeprazole 40 mg capsule,delayed 40 mg PO DAILY GERD 05/20/25 Unkno wn History release ondansetron HCl 4 mg tablet 4 mg feeding tube Q8H PRN nausea 0 05/20/25 Unknown History and vomiting oxycodone 5 mg tablet 5 mg feeding tube Q4H PRN pain Unknown History (scale score 7-10) pantoprazole 40 mg tablet,delayed 40 mg PO DAILY GERD 05/20/25 Unkn own History release polyethylene glycol 3350 17 17 g feeding tube DAILY 05/20/25 U nknown History gram/dose oral powder (Miralax) Constipation pravastatin 40 mg tablet 40 mg feeding tube QHS Cholesterol 05/20/25 Unknown History sennosides 8.6 mg tablet (Senokot) 8.6 mg PO QHS Constipation 05/20 Unknown History vitamins A,C,J-xklc-azemgv 4,296 1 cap PO DAILY Eye Vitamin 5 Unknown History mcg-226 mg-90 mg capsule (Healthy Eyes SuperVision) Allergy/AdvReac Type Severity Reaction Status Date / Time No Known Allergies Allergy Verified 05/20/25 19:39 Family History (Updated 05/20/25 @ 21:[address] Jesus Alberto Wiggins MD) Mother Hypertension Hyperlipidemia, unspecified Osteoarthritis Hearing loss Vision loss Father Heart disease Pneumonia CVA (cerebral vascular accident) Hearing loss Suicide attempt S (more content not included)... [facility] 05-20-2025 History of Present illness Narrative 05/20/25 1401 Discharge Planning Expected Discharge Disposition SNF Does the patient need discharge transport arranged? Yes Transitional Care Coordination Progress Note: Per trauma team, pt medically ready for discharge. [facility] can accept pt today. Transport confirmed for 3:30pm, PAM Ramesh notified. Bedside nurse notified, report #[phone] provided. Transport slip delivered to unit manager [employer]. This nurse met with patient at the bedside and notified of acceptance to [facility] and transportation time. Telephone call to pts , notified of the above. Per [facility] support team no [phone] is requires for their swing bed program. DIANNE Amato, manual training teacher Coordinator Office: [phone] Secure chat via [employer] 05/20/25 0927 Discharge Planning Expected Discharge Disposition SNF Does the patient need discharge transport arranged? Yes Transitional Care Coordination Progress Note: This nurse notified by [facility] liaison (Fatou [phone]) that their SNF can accept pt, stated they offer 1 1/2 to 2 hours of therapy, 5-6 days/ week. Telephone call to pts , agreeable to referral being placed. Referral submitted via [employer]. DIANNE Amato, manual training teacher Coordinator Office: [phone] Secure chat via [employer] [facility] TRAUMA SERVICE - PROGRESS NOTE Patient Name: Fawn Cameron Admit Date: [id number] : 1935 AGE: 89 y.o. 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 LOC (yes/no?): Yes Anticoagulant / Anti-platelet Rx? (for what dx?): ASA 81 Referring Facility Name (N/A for scene EMR run): [facility] INJURIES: Right orbital floor Mild buckled fracture [...] #Oropharyngeal dysphagia -failed bedside eval and MBSS; SECTION 8 PROPERTY MANAGER rec NPO with ice chips -pt had [...] and discussed with Dr. Montoya. Elaine Madrigal, COLLECTIONS CLERK-STEEL HANDLER Trauma Surgery 12719 Total face to face time spent with [...] Therapy Treatment Patient Name: Fawn Campos Department: [place] [address] [facility] Date: 05/19/2025 Time Calculation Start Time: [...] 1: cues for hand placement Outcome Measures: [facility] Basic Mobility Turning from your back to [...] (99.1 F) Resp 16 15 16 Vitals: 05/10/25 2157 Weight: 66.2 kg (146 lb) Relevant Results Lab Results Component Value Date TSH 4.88 (H) 05/12/2025 [id number] 283 05/12/2025 VITD25 18 (L) 05/12/2025 Results [...] Clement Estevez 05/09/2025 8:28 AM Dictation workstation: [id number] XR abdomen 1 view Narrative: Interpreted By: Oj Regan, STUDY: XR ABDOMEN 1 VIEW; 05/19/2025 11:35 am INDICATION: Signs/Symptoms:eval dobhoff placement. COMPARISON: 05/15/2025. ACCESSION NUMBER(S): [id number] ORDERING CLINICIAN: ELAINE MADRIGAL FINDINGS: Dobbhoff tube [...] Oj Regan 05/19/2025 12:02 PM Dictation workstation: [id number] DATA: EKG: QTC Encounter Date: 05/10/25 ECG 12 lead Result Value Ventricular Rate 72 Atrial Rate 72 AK Interval 190 QRS Duration 104 QT Interval 394 QTC Calculation(Bazett) 431 P Pantego 31 R Pantego -15 T Pantego 44 QRS Count 12 Q Onset 210 P Onset 115 P Offset 178 T Offset 407 QTC Fredericia 418 Narrative Normal sinus rhythm Normal ECG When compared with ECG of 10-MAY-2025 13:54, No significant change was found See ED provider note for full interpretation and clinical correlation Confirmed by Yolanda Garcia ([id number]) on 05/11/2025 3:47:31 AM Anti-psychotics in 48 [...] Goals of Care: -Health care power of esthetician: Diya () -Living will: present Code status: [...] over the weekend, please page Geriatrics pager [phone] Analy Cardona MD PGY1 Internal Medicine I [...] 650 mg 650 mg nasoduodenal tube q6h [facility] Rajwinder Omer MD 650 mg at 05/19/25 [...] Rajwinder Omer MD 1,000 mcg at 05/19/25 09 enoxaparin (Lovenox) syringe 30 mg 30 mg subcutaneous q12h [facility] Rajwinder Omer MD 30 mg at 05/19/25 1332 lidocaine 2 % mucosal jelly (Uro-Jet) 1 Application 1 Application Topical Once PRN Rajwinder Omer MD metoprolol tartrate (Lopressor) tablet 12.5 mg 12.5 mg nasoduodenal tube BID Rajwinder Omer MD 12.5 mg at 05/19/25 09 ondansetron (Zofran) tablet 4 mg 4 mg [...] Rajwinder Omer MD 40 mg at 05/17/25 08 polyethylene glycol (Glycolax, Miralax) packet 17 g [...] decision making as documented in the note. 05/19/2559 Discharge Planning Expected Discharge Disposition Rehab Does the patient need discharge transport arranged? Yes .Transitional Care Coordination Progress Note: VM to [facility], placed for liaison. Requested an update on acceptance, my contact information provided. Addendum 113: This nurse notified by [facility] that their MD feels as though pt can't tolerate 3 hours of therapy. Unable to accept at this time. Facility suggested their swing bed program, that offers 1 1/2 to 2 hours of therapy ([facility] # [phone], fax #[phone]). This nurse spoke with pts and notified her of the above. Agreeable to referral being submitted to [facility], [facility] list emailed to pts for review. Telephone call to [facility] (Paige BURGESS) confirmed they can accept with a marquise, confirmed bed availability. Referral faxed for review. My contact information provided. Addendum [phone]: Telephone call to [facility], spoke with Paige BURGESS, who stated clinicals were not received. Requested that they be faxed to [phone], clinicals faxed. Pts chose SNF FOC via [facility] 1) [facility] 2) [facility] 3) [facility] Referral submitted via [employer]. DIANNE Amato, manual training teacher Coordinator Office: [phone] Secure chat via [employer] [facility] TRAUMA SERVICE - PROGRESS NOTE Patient Name: Fawn Cameron Admit Date: [id number] : 1935 AGE: 89 y.o. 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 LOC (yes/no?): Yes Anticoagulant / Anti-platelet Rx? (for what dx?): ASA 81 Referring Facility Name (N/A for scene EMR run): [facility] INJURIES: Right orbital floor Mild buckled fracture [...] dysphagia > failed bedside eval and MBSS; SECTION 8 PROPERTY MANAGER rec NPO with ice chips > pt [...] and discussed with Dr. Montoya. Elaine Madrigal, COLLECTIONS CLERK-STEEL HANDLER Trauma Surgery 04947 Total face to face time spent with [...] Fawn Campos : 1935 Date: 05/18/25 Room: [address] [place] [address] Time Calculation Start Time: 1230 Stop Time: [...] Standing-Level of Assistance: Minimum assistance Outcome Measures: [facility] Daily Activity Putting on and taking off [...] 05/18/25 at 2:19 PM Enid Ng [phone] Subjective No acute events over the weekend. [...] Component Value Date TSH 4.88 (H) 05/12/2025 [id number] 283 05/12/2025 VITD25 18 (L) 05/12/2025 Results [...] Clement Estevez 05/09/2025 8:28 AM Dictation workstation: [id number] FL modified barium swallow study Narrative: Interpreted By: Antonio Bullock and Nelson Camree STUDY: FL MODIFIED BARIUM SWALLOW STUDY;; 05/14/2025 1:53 pm INDICATION: Signs/Symptoms:R/o aspiration, oropharyngeal dysphagia. COMPARISON: None. ACCESSION NUMBER(S): [id number] ORDERING CLINICIAN: LAY WALDROP TECHNIQUE: MBSS completed. Informed verbal consent obtained prior to completion of exam. Trials of thin, nectar thick, honey thick, puree, soft-solids, and regular solids given. SECTION 8 PROPERTY MANAGER: Shannon Santos Phone/Pager: [phone] SPEECH FINDINGS: Speech-Language Pathology Inpatient Modified Barium [...] tsp/straw, purees, and regular solids were given. 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 [...] risk of aspiration w/ continued PO intake SECTION 8 PROPERTY MANAGER PLAN: Skilled SECTION 8 PROPERTY MANAGER Services: Skilled SECTION 8 PROPERTY MANAGER intervention for dysphagia is warranted. SECTION 8 PROPERTY MANAGER Frequency: pending GOC decisions made Discussed POC: [...] given on all accounts. Treatment Provided Today: SECTION 8 PROPERTY MANAGER provided extensive education and training to pt/pt [...] further evaluation by medical specialists, as applicable. SECTION 8 PROPERTY MANAGER Impressions with Severity Rating: Pt awake/alert, consistently cooperative/able to follow commands, and responded appropriately to conversation/questions by SECTION 8 PROPERTY MANAGER. Missing dentition noted. Severe oropharyngeal dysphagia. Prolonged [...] residue, NO pt response After the Swallow Crivitz Thick Liquids: 8. SILENT ASPIRATION - contrast [...] findings as stated by Prakash Jorge MD (resident doctor). This study was interpreted at [place], [place]. MACRO: None Signed by: Antonio Lane 05/16/2025 4:02 PM Dictation workstation: [id number] XR abdomen 1 view Narrative: Interpreted By: Michelle Hodges and Ritchie Brandon STUDY: XR ABDOMEN 1 VIEW; 05/15/2025 5:16 pm INDICATION: Signs/Symptoms:Confirm DHT placement. COMPARISON: CT chest abdomen pelvis 05/10/2025. ACCESSION NUMBER(S): [id number] ORDERING CLINICIAN: LAY WALDROP FINDINGS: Dobbhoff tube [...] Freedom Luna. This study was interpreted at [place], [place]. MACRO: None Signed by: Michelle Blackwell 05/16/2025 6:04 AM Dictation workstation: [id number] DATA: EKG: QTC Encounter Date: 05/10/25 ECG 12 lead Result Value Ventricular Rate 72 Atrial Rate 72 AK Interval 190 QRS Duration 104 QT Interval 394 QTC Calculation(Bazett) 431 P Pantego 31 R Pantego -15 T Pantego 44 QRS Count 12 Q Onset 210 P Onset 115 P Offset 178 T Offset 407 QTC Fredericia 418 Narrative Normal sinus rhythm Normal ECG When compared with ECG of 10-MAY-2025 13:54, No significant change was found See ED provider note for full interpretation and clinical correlation Confirmed by Yolanda Garcia ([id number]) on 05/11/2025 3:47:31 AM Anti-psychotics in 48 hours: no Opioids/Benzodiazepines in 48 hours: No Anticholinergics on board: No Restraints:No Indwelling catheters: no Last BM: 05/18 UO in 24 hours: 250 cc Activity in the past 24 hours: Bed-bound Need for ambulatory devices: Unknown Assessment/Plan Fawn Leigh Nisha Andres is a 89 y.o. male on [...] Goals of Care: -Health care power of esthetician: Diya () -Living will: present Code status: [...] over the weekend, please page Geriatrics pager [phone] Analy Cardona MD PGY1 Internal Medicine I [...] 650 mg 650 mg nasoduodenal tube q6h [facility] Rajwinder Omer MD 650 mg at 05/18/25 0910 aspirin chewable tablet 81 mg 81 mg oral Daily Rajwinder Omer MD 81 mg at 05/18/25 0910 bisacodyl (Dulcolax) EC tablet 5 mg 5 mg oral Daily PRN Rajwnider Omer MD cholecalciferol (Vitamin D-3) tablet 125 mcg 125 mcg nasoduodenal tube Daily Rajwinder Omer MD 125 mcg at 05/18/25 0910 cyanocobalamin (Vitamin B-12) tablet 1,000 mcg 1,000 mcg nasoduodenal tube Daily Rajwinder Omer MD 1,000 mcg at 05/18/25 0910 enoxaparin (Lovenox) syringe 30 mg 30 mg subcutaneous q12h [facility] Rajwinder Omer MD 30 mg at 05/18/25 [...] Nightly Rajwinder Omer MD 40 mg at 05/17/252101 sennosides (Senokot) tablet 8.6 mg 1 tablet [...] Inpatient Financial Class: Medicare A/B ADOD: 05/19 THREAT MONITORING ANALYST [place] notified that per [facility], facility is unable to accept pt with a marquise. Per THREAT MONITORING ANALYST no plan for PEG at this time, this nurse awaiting plan for follow up. VM to pts second [facility], my contact provided. Telephone call to pts , notified of the above. Pts requested that refferal be sent to [facility]. Addendum 1521: Telephone call to [facility] admissions nurse who confirmed she received clinical information. Stated she'd review. My contact information provided. DIANNE Amato, manual training teacher Coordinator Office: [phone] Secure chat via Zaelab Physical Therapy Physical Therapy Treatment Patient Name: Fawn Campos Department: [place] [address] Room: [address] [place] [address] Today's Date: 05/18/2025 Time Calculation Start Time: [...] upright posture Stairs Stairs: No Outcome Measures: [facility] Basic Mobility Turning from your back to [...] SBA (Progressing) Start: 05/11/25 Expected End: 05/25/25 [facility] TRAUMA SERVICE - PROGRESS NOTE Patient Name: Fawn Cameron Admit Date: [id number] : 1935 AGE: 89 y.o. 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 LOC (yes/no?): Yes Anticoagulant / Anti-platelet Rx? (for what dx?): ASA 81 Referring Facility Name (N/A for scene EMR run): [facility] INJURIES: Right orbital floor Mild buckled fracture [...] dysphagia > failed bedside eval and MBSS; SECTION 8 PROPERTY MANAGER rec NPO with ice chips >pt had [...] ppx: Home PPI for GERD - Dispo: [facility] care, pending acute rehab. DHT placed, [...] goal rate feeds. ADOD tomorrow VM to [facility] rehab, advised of pts anticipated date of discharge. My contact information provided. DIANNE Amato, manual training teacher Coordinator Office: [phone] Secure chat via Zaelab [facility] TRAUMA SERVICE - PROGRESS NOTE Patient Name: Fawn Cameron Admit Date: [id number] : 1935 AGE: 89 y.o. 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 LOC (yes/no?): Yes Anticoagulant / Anti-platelet Rx? (for what dx?): ASA 81 Referring Facility Name (N/A for scene EMR run): [facility] INJURIES: Right orbital floor Mild buckled fracture [...] dysphagia > failed bedside eval and MBSS; SECTION 8 PROPERTY MANAGER rec NPO with ice chips >pt had [...] ppx: Home PPI for GERD - Dispo: [facility] care, pending acute rehab. DHT placed, [...] Therapy Treatment Patient Name: Fawn Campos Department: [place] [address] Room: 60/6081-A Today's Date: 05/15/2025 Time Calculation Start Time: [...] and walker Stairs Stairs: No Outcome Measures: [facility] Basic Mobility Turning from your back to [...] Met with pt and introduced myself as Training Program Manager with Care Transitions Team for Discharge Planning. My contact information provided, Updates submitted to [facility]. DIANNE Amato, manual training teacher Coordinator Office: [phone] Secure chat via Zaelab Occupational Therapy Occupational Therapy Treatment Name: Fawn Campos Department: [place] [address] Room: [address] [place] [address] Date: 05/15/25 Time Calculation Start Time: 936 [...] Sitting-Level of Assistance: Contact guard Outcome Measures: [facility] Daily Activity Putting on and taking off [...] Understanding, Needs Reinforcement Comment: fxnl mob ADLs Precautions, taught by Ilda Hutson OT at 05/15/2025 10:23 AM. Learner: Patient Readiness: Acceptance Method: Explanation, Demonstration Response: Verbalizes Understanding, Needs Reinforcement Comment: daylin hennessy ADLs ADL Training, taught by Ilda Hutson [...] F) Resp 15 15 18 16 Vitals: 05/10/252156 Weight: 66.2 kg (146 lb) Relevant Results Lab Results Component Value Date TSH 4.88 (H) 05/12/2025 [id number] 283 05/12/2025 VITD25 18 (L) 05/12/2025 Results [...] Clement Estevez 05/09/2025 8:28 AM Dictation workstation: [id number] Transthoracic Echo Complete [facility], [address] [place] [address] and TRANSTHORACIC ECHOCARDIOGRAM REPORT Patient Name: FAWN CAMERON Reading Physician: [id number] Noelle Roberts MD Study Date: 05/13/2025 Ordering Provider: [id number] LAY Hoskins PALMA MRN/PID: [id number] Fellow: Nurse: Date of /Age: 5 1935 Molder Inflated Ball: Enmanuel Vuongsby years RDCS, RVT Gender assigned at M Additional Staff: : Height: 167.64 cm Admit Date: 05/10/2025 Weight: 66.23 kg Admission Status: Inpatient - STAT BSA / BMI: 1.75 m2 / 23.57 kg/m2 Blood Pressure: 120/77 mmHg Department Location: [place] [address] Study Type: TRANSTHORACIC ECHO (TTE) COMPLETE Diagnosis/ICD: Syncope-R55 Indication: syncopal work-up CPT Code: Echo Complete w Full Doppler-[id number] Patient History: Pertinent History: HTN, HLD, TIA, [...] previous echocardiogram(s): Compared with study dated 07/31/2024, [facility], no significant changes from the report, images [...] regurgitation. 6. Compared with study dated 07/31/2024, [facility], no significant changes from the report, images [...] LA Area A2C: 12.1 cm2 LA Major Pantego A4C: 4.4 cm LA Major Pantego A2C: 4.8 cm RIGHT [facility]: Normal Ranges: [...] Neetu: 1.60 PulmV Sys Neetu: 67.70 cm/s [id number] Noelle Roberts MD Electronically signed on 05/13/2025 at 4:09:55 PM Final DATA: EKG: QTC Encounter Date: 05/10/25 ECG 12 lead Result Value Ventricular Rate 72 Atrial Rate 72 AK Interval 190 QRS Duration 104 QT Interval 394 QTC Calculation(Bazett) 431 P Pantego 31 R Pantego -15 T Pantego 44 QRS Count 12 Q Onset 210 P Onset 115 P Offset 178 T Offset 407 QTC Fredericia 418 Narrative Normal sinus rhythm Normal ECG When compared with ECG of 10-MAY-2025 13:54, No significant change was found See ED provider note for full interpretation and clinical correlation Confirmed by Yolanda Garcia ([id number]) on 05/11/2025 3:47:31 AM Anti-psychotics in 48 [...] Goals of Care: -Health care power of esthetician: Diya () -Living will: present Code status: [...] over the weekend, please page Geriatrics pager [phone] Robb Rossi, PGY3 Family Medicine I saw and evaluated [...] mg 650 mg oral q6h [facility] Daryl Rolleight 650 mg at 05/13/25 1441 bisacodyl (Dulcolax) [...] tablet 8.6 mg 1 tablet oral Nightly JEREMIN Rajwinder Omer MD Images from the original note were not included. Subjective Patient failed barium swallow today. Speech pathology recommending patient be NPO with feeding aggressive oral or assuming risk of aspiration w/ continued PO intake. Patient remains afebrile and hemodynamically stable. No acute concerns. Pain well controlled. Patient's home outsole splicer was visiting him at the bedside when [...] Component Value Date TSH 4.88 (H) 05/12/2025 [id number] 283 05/12/2025 VITD25 18 (L) 05/12/2025 Results [...] Clement Estevez 05/09/2025 8:28 AM Dictation workstation: [id number] Transthoracic Echo Complete [facility], [address] [place] [address] and TRANSTHORACIC ECHOCARDIOGRAM REPORT Patient Name: FAWN CAMERON Reading Physician: [id number] Noelle Roberts MD Study Date: 05/13/2025 Ordering Provider: [id number] LAY WALDROP MRN/PID: [id number] Fellow: Nurse: Date of /Age: 5 1935 Molder Inflated Ball: Enmanuel sarmiento [facility], RVT Gender assigned at M Additional Staff: : Height: 167.64 cm Admit Date: 05/10/2025 Weight: 66.23 kg Admission Status: Inpatient - STAT BSA / BMI: 1.75 m2 / 23.57 kg/m2 Blood Pressure: 120/77 mmHg Department Location: [place] [address] Study Type: TRANSTHORACIC ECHO (TTE) COMPLETE Diagnosis/ICD: Syncope-R55 Indication: syncopal work-up CPT Code: Echo Complete w Full Doppler-[id number] Patient History: Pertinent History: HTN, HLD, TIA, [...] previous echocardiogram(s): Compared with study dated 07/31/2024, [facility], no significant changes from the report, images [...] regurgitation. 6. Compared with study dated 07/31/2024, [facility], no significant changes from the report, images [...] LA Area A2C: 12.1 cm2 LA Major Pantego A4C: 4.4 cm LA Major [place] A2C: 4.8 cm RIGHT [facility]: Normal Ranges: [...] Neetu: 1.60 PulmV Sys Neetu: 67.70 cm/s [id number] Noelle Roberts MD Electronically signed on 05/13/2025 at 4:09:55 PM Final DATA: EKG: QTC Encounter Date: 05/10/25 ECG 12 lead Result Value Ventricular Rate 72 Atrial Rate 72 AK Interval 190 QRS Duration 104 QT Interval 394 QTC Calculation(Bazett) 431 P Pantego 31 R Pantego -15 T Pantego 44 QRS Count 12 Q Onset 210 P Onset 115 P Offset 178 T Offset 407 QTC Fredericia 418 Narrative Normal sinus rhythm Normal ECG When compared with ECG of 10-MAY-2025 13:54, No significant change was found See ED provider note for full interpretation and clinical correlation Confirmed by Yolanda Garcia ([id number]) on 05/11/2025 3:47:31 AM Anti-psychotics in 48 [...] Goals of Care: -Health care power of esthetician: Diya () -Living will: present Code status: [...] over the weekend, please page Geriatrics pager [phone] Reynaldo Stewart MD PGY-1 Internal Medicine Attending [...] tablet 650 mg 650 mg oral q6h [facility] Daryl Dickson 650 mg at 05/13/25 1441 [...] syringe 30 mg 30 mg subcutaneous q12h [facility] Rajwinder Omer MD 30 mg at 05/14/25 [...] 4 mg 4 mg intravenous q8h PRN Darylrahat RolleDickson oxyCODONE (Roxicodone) immediate release tablet 2.5 mg 2.5 mg oral q6h PRN Daryl Dickson 2.5 mg at 05/11/25 1849 oxyCODONE (Roxicodone) immediate release tablet 5 mg 5 mg oral q4h PRN Daryl Dickson 5 mg at 05/13/25 0252 oxygen (O2) therapy inhalation Continuous - O2/gases Darylrahat Dickson pantoprazole (Protonix) injection 40 mg 40 mg intravenous Daily Rajwinder Omer MD 40 mg at 05/14/25 0909 [Held by provider] polyethylene glycol (Glycolax, Miralax) packet 17 g 17 g oral Daily Daryl Rolleight 17 g at 05/12/25 0940 [Held by [...] hip extension. 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 Assessment: Clinical bedside swallow evaluation completed. Pt cleared for evaluation by RN. Received awake/alert and upright in bed for session. A&Ox4. Oral mechanism examination WNL. Consistently cooperative/able to follow commands and responded appropriately to conversation/questions by SECTION 8 PROPERTY MANAGER. Endorses difficulty swallowing characterized by coughing w/ [...] 06/14/2025 Status: Goal Initiated this date Plan: SECTION 8 PROPERTY MANAGER Services Indicated: Yes Frequency: 2x per week Discussed POC with patient SECTION 8 PROPERTY MANAGER - OK to Discharge Pain: 0-10 0 = No pain. Inpatient Education: Extensive education provided to patient regarding current swallow function, recommendations/results, and POC. Consultations/Referrals/Coordina tion of Services: N/A Physical Therapy Therapy Communication Note Patient Name: Fawn Campos Department: [place] [address] Room: 6081/6081-A Today's Date: 05/13/2025 Discipline: Physical Therapy Missed Visit: PT Missed Visit: Yes Missed Visit Reason: Missed Visit Reason: Patient refused (Pt reports having increased pain and fatigeu this date and just finished getting cleaned up. Pt does report mobilizing earlier this date. Will reattempt PT as able.) RN aware. Missed Time: Attempt Keren Mcclelland PT, DPT [facility] TRAUMA SERVICE - PROGRESS NOTE Patient Name: Fawn Cameron Admit Date: [id number] : 1935 AGE: 89 y.o. 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 LOC (yes/no?): Yes Anticoagulant / Anti-platelet Rx? (for what dx?): ASA 81 Referring Facility Name (N/A for scene EMR run): [facility] INJURIES: Right orbital floor Mild buckled fracture [...] ppx: Home PPI for GERD - Dispo: [facility] care, pending acute rehab Seen and [...] Therapy Evaluation/Treatment Patient Name: Fawn Campos Department: [place] [address] Room: [address] [place] [address] Today's Date: 05/13/25 Time Calculation Start Time: 08 Stop Time: 0906 Time Calculation (min): 28 min Assessment: OT [...] Built-in shower seat Prior Function: Level of Fallon: Independent with ADLs and functional transfers, Independent [...] (shoulder flex ~0-90 distal WFL) Outcome Measures: [facility] Daily Activity Putting on and taking off [...] Understanding, Needs Reinforcement Comment: fxnl mob ADLS Precautions, taught by Ilda Hutson OT at 05/13/2025 10:52 AM. Learner: Patient Readiness: Acceptance Method: Explanation, Demonstration Response: Verbalizes Understanding, Needs Reinforcement Comment: daylin hennessy ADLS ADL Training, taught by Ilda Hutson OT at 05/13/2025 10:52 AM. Learner: Patient Readiness: Acceptance Method: Explanation, Demonstration Response: Verbalizes Understanding, Needs Reinforcement Comment: daylin hennessy ADLS Education Comments No comments found. Goals: [...] Component Value Date TSH 4.88 (H) 05/12/2025 [id number] 283 05/12/2025 VITD25 18 (L) 05/12/2025 Results [...] Clement Estevez 05/09/2025 8:28 AM Dictation workstation: [id number] ECG 12 lead Normal sinus rhythm Normal ECG When compared with ECG of 07-DEC-2023 09:54, Premature atrial complexes are no longer Present See ED provider note for full interpretation and clinical correlation Confirmed by Brandee Hawkins ([id number]) on 05/11/2025 1:16:43 PM XR pelvis With Inlet Outlet Judet views Narrative: Interpreted By: Wanda Montalvo and Omar Mahmoud STUDY: XR PELVIS WITH INLET OUTLET JUDET VIEWS; ; 05/11/2025 4:18 am INDICATION: Signs/Symptoms:eval. COMPARISON: CT chest abdomen pelvis 05/10/2025. ACCESSION NUMBER(S): [id number] ORDERING CLINICIAN: LEONARDO BERGER FINDINGS: Five view [...] MD (PGY-3). This study was interpreted at [place], [place]. MACRO: None Signed by: Wanda Montalvo 05/11/2025 5:01 AM Dictation workstation: [id number] XR chest 1 view Narrative: STUDY: Chest Radiograph; 05/11/2025 1:13AM INDICATION: Evaluation for surgery trauma. COMPARISON: 09/23/2022 XR chest ACCESSION NUMBER(S): [id number] ORDERING CLINICIAN: SANTIAGO MENENDEZ TECHNIQUE: Frontal chest was obtained at 01:12 hours. FINDINGS: CARDIOMEDIASTINAL SILHOUETTE: Cardiomediastinal silhouette is normal in size and configuration. Mural calcifications through the aortic arch. LUNGS: No regions of consolidation. No regions of atelectasis. ABDOMEN: No remarkable upper abdominal findings. BONES: No acute osseous changes. Impression: No acute pleural or parenchymal disease.. Signed by Gracie Baltazar MD ECG 12 lead Normal sinus rhythm Normal ECG When compared with ECG of 10-MAY-2025 13:54, No significant change was found See ED provider note for full interpretation and clinical correlation Confirmed by Yolanda Garcia ([id number]) on 05/11/2025 3:47:[address] head wo IV contrast Narrative: Interpreted By: Wanda Montalvo, and Spenser Jenkins STUDY: CT HEAD WO IV CONTRAST; 05/10/2025 11:27 pm INDICATION: Signs/Symptoms:Trauma, intracranial bleeding. Stability scan. COMPARISON: CT head without IV contrast 05/10/2025 3:03 p.m.. ACCESSION NUMBER(S): [id number] ORDERING CLINICIAN: CARRI GREER TECHNIQUE: Noncontrast axial [...] MD (PGY-3). This study was interpreted at [facility], [place], [place]. MACRO: None Signed by: Wanda Montalvo 05/11/2025 12:03 AM Dictation workstation: [id number] DATA: EKG: QTC Encounter Date: 05/10/25 ECG 12 lead Result Value Ventricular Rate 72 Atrial Rate 72 AK Interval 190 QRS Duration 104 QT Interval 394 QTC Calculation(Bazett) 431 P Pantego 31 R Pantego -15 T Pantego 44 QRS Count 12 Q Onset 210 P Onset 115 P Offset 178 T Offset 407 QTC Fredericia 418 Narrative Normal sinus rhythm Normal ECG When compared with ECG of 10-MAY-2025 13:54, No significant change was found See ED provider note for full interpretation and clinical correlation Confirmed by Yolanda Garcia ([id number]) on 05/11/2025 3:47:31 AM Anti-psychotics in 48 [...] Goals of Care: -Health care power of esthetician: Diya () -Living will: present Code status: FULL CODE Geriatric medicine will continue to follow the patient. Thank you for allowing geriatric medicine to be involved in the care of your patient. Geriatric medicine consultation team is available during work hours Sunday through Sunday. For any emergency issues requiring immediate assistance over the weekend, please page Geriatrics pager [phone] Robb Rossi DO PGY3 - Family Medicine I saw [...] 500 mg 500 mg oral BID February MD Jesus Alberto 500 mg at 05/12/252124 metoprolol tartrate (Lopressor) tablet 12.5 mg 12.5 mg oral BID February MD Jesus Alberto 12.5 mg at 05/12/252124 ondansetron (Zofran) tablet 4 mg 4 mg oral q8h PRN Daryl Randolph Or ondansetron (Zofran) injection 4 mg 4 mg intravenous q8h PRN Daryl Randolph oxyCODONE (Roxicodone) immediate release tablet 2.5 mg 2.5 mg oral q6h PRN Daryl Dickson 2.5 mg at 05/11/25 1849 oxyCODONE (Roxicodone) immediate release tablet 5 mg 5 mg oral q4h PRN Daryl Dickson 5 mg at 05/13/25 0252 oxygen (O2) therapy inhalation Continuous - O2/gases Daryl Randolph oxymetazoline (Afrin) 0.05 % nasal spray 2 spray 2 spray Each Nostril q12h PRN Daryl Dickson pantoprazole (ProtoNix) EC tablet 40 mg 40 mg oral Daily before breakfast Daryl Dickson 40 mg at 05/13/25 0617 polyethylene glycol (Glycolax, Miralax) packet 17 g 17 g oral Daily Daryl Dickson 17 g at 05/12/25 0940 pravastatin (Pravachol) tablet 40 mg 40 mg oral Nightly February MD Jesus Alberto 40 mg at 05/12/252124 sennosides (Senokot) tablet 8.6 mg 1 tablet oral Nightly Yoav Forte MD Physical Therapy Physical Therapy Physical Therapy Treatment Patient Name: Fawn Campos Today's Date: 05/12/2025 Time Calculation Start Time: 1152 Stop Time: 1221 Time Calculation (min): 29 min [id number] Assessment/Plan PT Assessment PT Assessment Results: Decreased [...] light headed. Blood pressure stable. 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 male on day 1 of admission presenting with Fall, initial encounter. TCC contacted by Fatou from [facility] stating that they would be willing to take patient for acute rehab. Fatou requesting OT eval and updated notes during patient's hospital stay. TCC acknowledged request and the informed patient and his spouse of [facility]'s acceptance and they were both agreeable to utilizing the facility after discharge. Provider made aware. OT contacted in regards to need for eval and assigned staff to patient. TCC will continue to follow patient for discharge planning. DAMIR Rivers [facility] TRAUMA SERVICE - PROGRESS NOTE Patient Name: Fawn Cameron Admit Date: [id number] : 1935 AGE: 89 y.o. 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 LOC (yes/no?): Yes Anticoagulant / Anti-platelet Rx? (for what dx?): ASA 81 Referring Facility Name (N/A for scene EMR run): [facility] INJURIES: Right orbital floor Mild buckled fracture [...] DVT ppx: SCDs, subcutaneous lovenox to start 7/23 AM dosing - GI ppx: Home PPI [...] neuromonitoring, SCDs, Lovenox at 48 hours. 05/11/25 182 Financial Resource Strain How hard is it [...] were you homeless or living in a long term (including now)? N Transportation Needs In the [...] a supplement and sees Dr. Barrera at [facility]. Patient denies any housing, transportation or financial concerns. Patient made aware of PT's recommendation of high intensity rehab and is willing to go to acute rehab. TCC gave patient and his a list of nearby acute nursing facilities for review and they selected [facility] and [facility] as their top choices. TCC to send referral via CarePort, awaiting response. TCC will continue to follow patient for discharge planning. NOK: Diya Maria Elenajorje Dialysis: 0 O2: 0 Pharmacy: [facility] (Mail Order) or [facility] Home Health: 0 [facility] Physical Therapy Evaluation & Treatment Patient Name: Andres Cameron [place] [facility] [place] Room: [id number] Today's Date: 05/11/2025 Time Calculation Start Time: [...] Prior Function Per Pt/Caregiver Report Level of [place]: Independent with ADLs and functional transfers, Independent [...] he no longer wanted on Outcome Measures: [facility] Basic Mobility Turning from your back to [...] sequencing mobility Education Comments No comments found. [facility] TRAUMA SERVICE - PROGRESS NOTE Patient Name: Fawn Cameron Admit Date: [id number] : 1935 AGE: 89 y.o. 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 LOC (yes/no?): Yes Anticoagulant / Anti-platelet Rx? (for what dx?): ASA 81 Referring Facility Name (N/A for scene EMR run): [facility] INJURIES: Right orbital floor Mild buckled fracture [...] List and refresh.. Pharmacy reviewed the patient's vanps-ul-oboizweeo medications and allergies for accuracy. 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 Prior to Admission Medications Prescriptions Last [...] Admission MedRec Grid OARRS - none recent [facility] medication dispense report Medications ADDED: None Medications CHANGED: AREDS - updated frequency from Qday to BID Medications REMOVED/MARKED NOT TAKING: None Additional Comments: Patient only took 4 out of 8 methotrexate 2.5 mg tablets on 05/10/25 (takes on Sundays) Kellee Osman PharmD Transitions of Care Pharmacist 05/10/25 Secure Chat preferred If no response call [phone] or [facility] documented in this encounter [facility] Work Phone: 05-20-2025 Nurse Note 1324 Report given to ANNA Perez at [facility]. SBAR given. Orders reviewed. design printing machine set up operator time communicated and repeated back. [facility] 05-20-2025 Nurse Note 1324 Report given to ANNA Perez at [facility]. SBAR given. Orders reviewed. design printing machine set up operator time communicated and repeated back. Pt handoff [...] team was notified. documented in this encounter [facility] Work Phone: 05-20-2025 Hospital Discharge instructions Hien Ramesh PA-C - 05/20/2025 1:09 PM EDT [facility] DISCHARGE INSTRUCTIONS GENERAL INSTRUCTIONS 1) Diet: Tube [...] to call our outpatient nurse coordinator at [phone] with any questions/concerns. The nurse will get [...] re-evaluation - Opthalmology: Recommend follow-up with [facility], within 1-2 weeks. Please call [phone] (EYES) to make appointment. - Primary Care Provider: Please follow up with your PCP within 1-2 weeks after discharge regarding your recent hospital admission. If you do not have a primary care provider, you may also call the hospital main number at [phone] and ask for a referral. 6) Please [...] evaluation and management. documented in this encounter [facility] Work Phone: 05-20-2025 Plan of care note Problem: Skin Goal: Promote/optimize nutrition 05/20/2025 1101 by Mack Mckinley RN Flowsheets (Taken 05/20/2025 110) Promote/optimize nutrition: Offer water/supplements/favorite foods Consume > [...] remain free from injury during this shift 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 Patient was found to have right [...] Iraj Avery MD PGY-1, Department of Neurosurgery [facility] 8:58 AM documented in this encounter [facility] Work Phone: 05-20-2025 Plan of care [...] remain free from injury during this shift [facility] Work Phone: 05-20-2025 Nurse Note Pt handoff report provided to oncoming nurse to continue to monitor. Pt safety measures in place. [facility] 05-20-2025 Plan of care note The [...] fall by end of shift Outcome: Progressing [facility] Work Phone: 05-19-2025 Plan of care [...] by end of the shift Outcome: Progressing [facility] 05-18-2025 Plan of care note The [...] pain meds throughout the shift Outcome: Progressing [facility] Work Phone: 05-17-2025 Plan of care note The patient's goals for the shift include The clinical goals for the shift include remain free from falls Problem: Pain Goal: Takes deep breaths with improved pain control throughout the shift Outcome: Met Goal: Turns in bed with improved pain control throughout the shift Outcome: Met [facility] 05-17-2025 Plan of care note The [...] pain meds throughout the shift Outcome: Progressing [facility] Work Phone: 05-16-2025 Plan of care note The patient's goals for the shift include The clinical goals for the shift include increase feed rate and remain HDS Problem: Safety - Adult Goal: Free from fall injury Outcome: Met Problem: Discharge Planning Goal: Discharge to home or other facility with appropriate resources Outcome: Met [facility] Work Phone: 05-16-2025 Note 1. Please refer to d etailed swallow study evaluation by speech pathologist. 2. No radiographic evidence of acute osseous abnormality within limits of current examination. I personally reviewed the images/study and I agree with the findings as stated by Prakash Jorge MD (resident doctor). This study was interpreted at [place], [place]. MACRO: None Signed by: Antonio Lane 05/16/2025 4:02 PM Dictation workstation: [id number] MMODAL 05-16-2025 Consult note Associated Order (s): IP CONSULT TO NUTRITION SERVICES Nutrition Initial Assessment: Nutrition Assessment Reason for Assessment: Provider consult order, Enteral assessment/recommendation (TF) (Nutrition assessment/recommendation) Patient is a 89 y.o. male presenting with Fall. Medical History[1] Surgical History[2] Nutrition History: Food and Nutrient History: NPO or decreased intake initial 4 days of hospital stay. SECTION 8 PROPERTY MANAGER recommended NPO on 05/14/25. DHT placed 05/15 and Isosource 1.5 initiated @ 10ml/hr with plan to increase by 10ml every 6hrs to goal of 50ml/hr. Noted per abd x-ray tube ends in proximal duodenum. Patient was lying in bed upon visit this morning. TF running @ 30ml/hr and patient tolerating well. 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 , Vit D: Lab Results Component Value Date VITD25 18 (L) 05/12/2025 , Vit B12: Lab Results Component Value Date [id number] 283 05/12/2025 , Iron Panel: Lab Results [...] swallowing diffiuclty obtained upon diet history and SECTION 8 PROPERTY MANAGER evaluations Nutrition Interventions/Recommendations Nutrition prescription for enteral [...] lidocaine, ondansetron OR ondansetron, oxyCODONE, oxyCODONE, sennosides [facility] 05-16-2025 Consult note Associated Order (s): IP CONSULT TO NUTRITION SERVICES Nutrition Initial Assessment: Nutrition Assessment Reason for Assessment: Provider consult order, Enteral assessment/recommendation (TF) (Nutrition assessment/recommendation) Patient is a 89 y.o. male presenting with Fall. Medical History[1] Surgical History[2] Nutrition History: Food and Nutrient History: NPO or decreased intake initial 4 days of hospital stay. SECTION 8 PROPERTY MANAGER recommended NPO on 05/14/25. DHT placed 05/15 and Isosource 1.5 initiated @ 10ml/hr with plan to increase by 10ml every 6hrs to goal of 50ml/hr. Noted per abd x-ray tube ends in proximal duodenum. Patient was lying in bed upon visit this morning. TF running @ 30ml/hr and patient tolerating well. 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 Area still [...] Emergency Contact: Diya Cameron Address: [address] Mobile Relation: Power of Veterinary Virologist Welding Machine Operator Electro Gas needed? No Reason For Consult: advanced age, frequent falls History Of Present Illness: Andres Cameron is a 89 y.o. male with h/o AAA, infrarenal aneurysm, HTN, HLD, CAD (on ASA) who presents after an unwitnessed fall on Sunday05/09/25. 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 Workup revealed injuries to the R orbital floor, Mild buckled fracture of the RT anterior cranial floor/orbital roof, Small RT (2 mm) subdural hematoma, Trace right frontal subarachnoid hematoma, Bilateral pubic rami fractures with extension into the acetabular wall, Nondisplaced sacral ala fracture on right. Cardiac workup in the ED was negative for OR or arhythmia. Pt has been evaluated by trauma surgery, orthopedic surgery, ENT and ophthalmology and no surgical intervention has been recommended. PT/OT is recommending high-intensity acute rehab on discharge. 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 [place] Cognitive Assessment (MoCA) Not on file. Geriatric [...] Results Component Value Date TSH 2.99 09/01/2024 [id number] 314 11/20/2024 Results from last 7 days [...] Clement Estevez 05/09/2025 8:28 AM Dictation workstation: [id number] ECG 12 lead Normal sinus rhythm Normal ECG When compared with ECG of 07-DEC-2023 09:54, Premature atrial complexes are no longer Present See ED provider note for full interpretation and clinical correlation Confirmed by Brandee Hawkins ([id number]) on 05/11/2025 1:16:43 PM XR pelvis With Inlet Outlet Judet views Narrative: Interpreted By: Wanda Montalvo, Jake Jenkins STUDY: XR PELVIS WITH INLET OUTLET JUDET VIEWS; ; 05/11/2025 4:18 am INDICATION: Signs/Symptoms:eval. COMPARISON: CT chest abdomen pelvis 05/10/2025. ACCESSION NUMBER(S): [id number] ORDERING CLINICIAN: LEONARDO BERGER FINDINGS: Five view [...] MD (PGY-3). This study was interpreted at [place], [place]. MACRO: None Signed by: Wanda Montalvo 05/11/2025 5:01 AM Dictation workstation: [id number] XR chest 1 view Narrative: STUDY: Chest Radiograph; 05/11/2025 1:13AM INDICATION: Evaluation for surgery trauma. COMPARISON: 09/23/2022 XR chest ACCESSION NUMBER(S): [id number] ORDERING CLINICIAN: SANTIAGO MENENDEZ TECHNIQUE: Frontal chest was obtained at 01:12 hours. FINDINGS: CARDIOMEDIASTINAL SILHOUETTE: Cardiomediastinal silhouette is normal in size and configuration. Mural calcifications through the aortic arch. LUNGS: No regions of consolidation. No regions of atelectasis. ABDOMEN: No remarkable upper abdominal findings. BONES: No acute osseous changes. Impression: No acute pleural or parenchymal disease.. Signed by Gracie Baltazar MD ECG 12 lead Normal sinus rhythm Normal ECG When compared with ECG of 10-MAY-2025 13:54, No significant change was found See ED provider note for full interpretation and clinical correlation Confirmed by Yolanda Garcia ([id number]) on 05/11/2025 3:47:[address] head wo IV contrast Narrative: Interpreted By: Wanda Montalvo and Omar Mahmoud STUDY: CT HEAD WO IV CONTRAST; 05/10/2025 11:27 pm INDICATION: Signs/Symptoms:Trauma, intracranial bleeding. Stability scan. COMPARISON: CT head without IV contrast 05/10/2025 3:03 p.m.. ACCESSION NUMBER(S): [id number] ORDERING CLINICIAN: CARRI GREER TECHNIQUE: Noncontrast axial [...] MD (PGY-3). This study was interpreted at [place], [place]. MACRO: None Signed by: Wanda Montalvo 05/11/2025 12:03 AM Dictation workstation: [id number] Head/Brain Imaging === Results for orders placed during the hospital encounter of 05/10/25 === CT head wo IV contrast [[id number]] 05/10/2025 Status: Normal Redemonstration of minimally displaced [...] MD (PGY-3). This study was interpreted at [place], [place]. MACRO: None Signed by: Wanda Montalvo 05/11/2025 12:03 AM Dictation workstation: [id number] No results found for this or any previous visit. DATA: EKG: QTC Encounter Date: 05/10/25 ECG 12 lead Result Value Ventricular Rate 72 Atrial Rate 72 AK Interval 190 QRS Duration 104 QT Interval 394 QTC Calculation(Bazett) 431 P Pantego 31 R Pantego -15 T Pantego 44 QRS Count 12 Q Onset 210 P Onset 115 P Offset 178 T Offset 407 QTC Fredericia 418 Narrative Normal sinus rhythm Normal ECG When compared with ECG of 10-MAY-2025 13:54, No significant change was found See ED provider note for full interpretation and clinical correlation Confirmed by Yolanda Garcia ([id number]) on 05/11/2025 3:47:31 AM Anti-psychotics in 48 [...] Goals of Care: -Health care power of esthetician: Diya () -Living will: present Code status: FULL CODE Geriatric medicine will continue to follow the patient. Thank you for allowing geriatric medicine to be involved in the care of your patient. Geriatric medicine consultation team is available during work hours Sunday through Sunday. For any emergency issues requiring immediate assistance over the weekend, please page Geriatrics pager [phone] Consult Billing Time Prep time on date [...] Evelyn Granda MD 500 mg at 05/11/25 214 metoprolol tartrate (Lopressor) tablet 12.5 mg 12.5 [...] Dr. Kristy Ramos in 2 weeks. Call [phone] to schedule appointment. - Please don't hesitate to page with questions DISPOSITION: Per primary, pending trial of ambulation This patient was staffed with the attending physician, Dr. Kristy Resendiz MD Orthopedic Surgery PGY-2 [facility] While admitted, this patient will be followed by the Orthopedic Trauma Team. Please contact the residents listed below with any questions. For urgent matters at any time, or for any needs between 6 PM and 6 AM Sunday through Sunday, on weekends, or on holidays, please page the Orthopaedic [place] [phone]. Trauma: First Call: Antonio Guzman, PGY-1/Heike Arzate, PGY-1 Second Call: Sally Cutler, PGY-2 Third Call: Chente Ricci, PGY-3 Cosigned by Kristy Ramos MD at 05/11/2025 1:07 PM EDT Associated Order(s): IP CONSULT TO ENT ENT DEPARTMENT CONSULTATION NOTE Name: Fawn Cameron : 1935 Consulting Attending: Carri Greer MD;Leonardo* Reason for Consult: Orbital roof fracture Patient History of Present Illness 89 y.o. male presented to [facility] on 05/10 after sustaining injuries from a [...] smoke. You may use saline nasal spray ([place]) and Afrin as needed for congestion and bleeding. If using Afrin please take as permitted on the bottle (for every 3 days of use you must take a 1 day holiday before using it again). Note not final until signed by an attending. Riaz Carrillo MD - PGY2 Otolaryngology - Head and Neck Surgery Head & Neck team phone: [phone] ENT consult pager: [phone] Pediatric ENT pager: [phone] ENT Outpatient scheduling number: [phone] [1] Past Medical History: Diagnosis Date Arthritis [...] Name Age of Onset Heart murmur Mother Union Obrecht Hyperlipidemia Mother Union Obrecht Arthritis Mother Union Obrecht Hearing loss Mother Union Obrecht Hypertension Mother Union Obrecht Vision loss Mother Union Obrecht Other (CARDIAC DISORDER) Father Pneumonia Father [...] ophthalmology for dilated eye exam when cleared [phone] Recommend follow-up with [facility], within 1-2 weeks. Please call [phone] (EYES) to make appointment. Thank you for the consult. Please contact the Ophthalmology service with further questions or concerns. Abigail Richardson MD Ophthalmology, PGY-3 Ophthalmology Adult Pager - [phone] Ophthalmology Pediatrics Pager (8am- 5pm) - [phone] For adult follow-up appointments, call: [phone] For pediatric follow-up appointments, call: [phone] NOTE: This note is not finalized until [...] PVD: posterior vitreous detachment Cosigned by Don aSnchez MD at 05/11/2025 8:59 AM EDT Associated attestation - Don Sanchez MD - 05/11/2025 8:59 AM EDT I was NOT present during the evaluation of the patient. I reviewed the resident/fellow's documentation and discussed the patient with the resident/fellow in more detail as necessary. I agree with the resident/fellow's medical decision making as documented in the note. documented in this encounter [facility] Work Phone: 05-15-2025 Plan of care note The patient's goals for the shift include safety The clinical goals for the shift include Pt will remian safe and HDS Over the shift, the patient did make progress toward the following goals. Pt sat in the chair for a couple hours today. Dobhoff inserted and awaiting to start feeds once pump available, mosaic tiler to see pt tomorrow morning and follow up. Still on 1L, desats to 88 on RA. Pt voiding, had a BM, passing gas. Ongoing care, call light within reach, bed alarm in place [facility] 05-15-2025 Procedure note Images from the [...] with Placement: No Assessments Row Name 05/15/25 3608 Tube Status Clamped Placement Verification X-ray Distal Tube Measurement (cm) 75 cm Site Assessment Clean Response To Intervention No resistance met Tube Securement Nasal bridle Appropriate imaging orders have been placed to check tube placement. [facility] 05-15-2025 Procedure note Images from the [...] placed to check tube placement. Associated Order(s): SECTION 8 PROPERTY MANAGER MODIFIED BARIUM SWALLOW EVALUATION Speech-Language Pathology Inpatient [...] tsp/straw, purees, and regular solids were given. 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 [...] risk of aspiration w/ continued PO intake SECTION 8 PROPERTY MANAGER PLAN: Skilled SECTION 8 PROPERTY MANAGER Services: Skilled SECTION 8 PROPERTY MANAGER intervention for dysphagia is warranted. SECTION 8 PROPERTY MANAGER Frequency: pending GOC decisions made Discussed POC: [...] given on all accounts. Treatment Provided Today: SECTION 8 PROPERTY MANAGER provided extensive education and training to pt/pt [...] further evaluation by medical specialists, as applicable. SECTION 8 PROPERTY MANAGER Impressions with Severity Rating: Pt awake/alert, consistently cooperative/able to follow commands, and responded appropriately to conversation/questions by SECTION 8 PROPERTY MANAGER. Missing dentition noted. Severe oropharyngeal dysphagia. Prolonged [...] residue, NO pt response] After the Swallow Crivitz Thick Liquids: 8. SILENT ASPIRATION - contrast [...] not enter airway documented in this encounter [facility] Work Phone: 05-14-2025 Plan of care [...] clinical goals for the shift include [address] [facility] 05-14-2025 Plan of care note The [...] place, call light within reach, ongoing care [facility] Work Phone: 05-14-2025 Procedure note Associated Ord er(s): SECTION 8 PROPERTY MANAGER MODIFIED BARIUM SWALLOW EVALUATION Speech-Language Pathology Inpatient [...] tsp/straw, purees, and regular solids were given. 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 [...] risk of aspiration w/ continued PO intake SECTION 8 PROPERTY MANAGER PLAN: Skilled SECTION 8 PROPERTY MANAGER Services: Skilled SECTION 8 PROPERTY MANAGER intervention for dysphagia is warranted. SECTION 8 PROPERTY MANAGER Frequency: pending GOC decisions made Discussed POC: [...] given on all accounts. Treatment Provided Today: SECTION 8 PROPERTY MANAGER provided extensive education and training to pt/pt [...] further evaluation by medical specialists, as applicable. SECTION 8 PROPERTY MANAGER Impressions with Severity Rating: Pt awake/alert, consistently cooperative/able to follow commands, and responded appropriately to conversation/questions by SECTION 8 PROPERTY MANAGER. Missing dentition noted. Severe oropharyngeal dysphagia. Prolonged [...] of aspiration with oral intake. MD aware. Rosenbek's Penetration Aspiration Scale Thin Liquids: 8. SILENT ASPIRATION - contrast passes glottis, visible residue, NO pt response] After the Swallow Crivitz Thick Liquids: 8. SILENT ASPIRATION - contrast [...] no aspiration, contrast does not enter airway [facility] Work Phone: 05-14-2025 Plan of care note The clinical goals for the shift include pts pain ivis remian controlled through shift Problem: Pain - Adult Goal: Verbalizes/displays adequate comfort level or baseline comfort level Outcome: Progressing Problem: Safety - Adult Goal: Free from fall injury Outcome: Progressing [facility] 05-13-2025 Nurse Note Pt was eating dinner and told RN he was having trouble swallowing certain foods and coughed and had to spit them out. RN instructed pt and pts family to no longer eat or drink anything and food/drink moved away from patient. Primary team was notified. [facility] 05-13-2025 Plan of care note Problem: Skin Goal: Decreased wound size/increased tissue granulation at next dressing change Outcome: Progressing Goal: Participates in plan/prevention/treatment measures Outcome: Progressing Goal: Prevent/manage excess moisture Outcome: Progressing Flowsheets (Taken 05/13/2025 3041) Prevent/manage excess moisture: Moisturize dry skin Goal: [...] pts pain ivis remian controlled through shift [facility] Work Phone: 05-13-2025 Consult note Associated [...] 05/13/2025 11:24 AM Wound Image Site Assessment Red;[place]ist[place]ina Griselda-Wound Assessment Dry Wound Length (cm) 2 [...] Due to linear presentation, likely IV or medical accounts receivable specialist line that caused skin changes. Area still [...] injury. Hayley Chang RN 05/13/2025 4:[address] [facility] 05-13-2025 Plan of care note The clinical goals for the shift include Patient pain will be managed Problem: Pain - Adult Goal: Verbalizes/displays adequate comfort level or baseline comfort level Outcome: Progressing Problem: Safety - Adult Goal: Free from fall injury Outcome: Progressing [facility] Work Phone: 05-12-2025 Consult note Associated Order (s): Inpatient consult to Geriatric Medicine Inpatient consult to Geriatric Medicine Consult performed by: Robb Rossi DO Consult ordered by: Kristy Giraldo DO Primary Team: Trauma Admit Date: 05/10/2025 Emergency Contact: Extended Emergency Contact Information Primary Emergency Contact: Diya Cameron Address: [address] [place] [address] Mobile Relation: Power of Veterinary Virologist Welding Machine Operator Electro Gas needed? No Reason For Consult: advanced age, frequent falls History Of Present Illness: Andres Cameron is a 89 y.o. male with h/o AAA, infrarenal aneurysm, HTN, HLD, CAD (on ASA) who presents after an unwitnessed fall on Sunday05/09/25. 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 Workup revealed injuries to the R orbital floor, Mild buckled fracture of the RT anterior cranial floor/orbital roof, Small RT (2 mm) subdural hematoma, Trace right frontal subarachnoid hematoma, Bilateral pubic rami fractures with extension into the acetabular wall, Nondisplaced sacral ala fracture on right. Cardiac workup in the ED was negative for OR or arhythmia. Pt has been evaluated by trauma surgery, orthopedic surgery, ENT and ophthalmology and no surgical intervention has been recommended. PT/OT is recommending high-intensity acute rehab on discharge. 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 Highest Level of Education: Post-Graduate Degree [...] Transportation: I, Medications: I, Handle Finances: I Ravalli Scale: 8 Allergies Patient has no known [...] Directive/Living Will: Yes Health Care Power of Veterinary Virologist: Yes Code Status: Full Code Confusion Assessment [...] 14 16 13 16 16 18 Vitals: 07/20/25 2157 Weight: 66.2 kg (146 lb) Confusion [...] Results Component Value Date TSH 2.99 09/01/2024 [id number] 11/20/2024 Results from last 7 days [...] Clement Estevez 05/09/2025 8:28 AM Dictation workstation: [id number] ECG 12 lead Normal sinus rhythm Normal ECG When compared with ECG of 07-DEC-2023 09:54, Premature atrial complexes are no longer Present See ED provider note for full interpretation and clinical correlation Confirmed by Brandee Hawkins ([id number]) on 05/11/2025 1:16:43 PM XR pelvis With Inlet Outlet Judet views Narrative: Interpreted By: Wanda Montalvo and Omar Mahmoud STUDY: XR PELVIS WITH INLET OUTLET JUDET VIEWS; ; 05/11/2025 4:18 am INDICATION: Signs/Symptoms:eval. COMPARISON: CT chest abdomen pelvis 05/10/2025. ACCESSION NUMBER(S): [id number] ORDERING CLINICIAN: LEONARDO BERGER FINDINGS: Five view [...] MD (PGY-3). This study was interpreted at [facility], [place], [place]. MACRO: None Signed by: Wanda Montalvo 05/11/2025 5:01 AM Dictation workstation: [id number] XR chest 1 view Narrative: STUDY: Chest Radiograph; 05/11/2025 1:13AM INDICATION: Evaluation for surgery trauma. COMPARISON: 09/23/2022 XR chest ACCESSION NUMBER(S): [id number] ORDERING CLINICIAN: SANTIAGO MENENDEZ TECHNIQUE: Frontal chest was obtained at 01:12 hours. FINDINGS: CARDIOMEDIASTINAL SILHOUETTE: Cardiomediastinal silhouette is normal in size and configuration. Mural calcifications through the aortic arch. LUNGS: No regions of consolidation. No regions of atelectasis. ABDOMEN: No remarkable upper abdominal findings. BONES: No acute osseous changes. Impression: No acute pleural or parenchymal disease.. Signed by Gracie Baltazar MD ECG 12 lead Normal sinus rhythm Normal ECG When compared with ECG of 10-MAY-2025 13:54, No significant change was found See ED provider note for full interpretation and clinical correlation Confirmed by Yolanda Garcia ([id number]) on 05/11/2025 3:47:[address] head wo IV contrast Narrative: Interpreted By: Wanda Montalvo, Jake Jenkins STUDY: CT HEAD WO IV CONTRAST; 05/10/2025 11:27 pm INDICATION: Signs/Symptoms:Trauma, intracranial bleeding. Stability scan. COMPARISON: CT head without IV contrast 05/10/2025 3:03 p.m.. ACCESSION NUMBER(S): [id number] ORDERING CLINICIAN: CARRI GREER TECHNIQUE: Noncontrast axial [...] MD (PGY-3). This study was interpreted at [place], [place]. MACRO: None Signed by: Wanda Montalvo 05/11/2025 12:03 AM Dictation workstation: [id number] Head/Brain Imaging === Results for orders placed during the hospital encounter of 05/10/25 === CT head wo IV contrast [[id number]] 05/10/2025 Status: Normal Redemonstration of minimally displaced [...] MD (PGY-3). This study was interpreted at [place], [place]. MACRO: None Signed by: Wanda Montalvo 05/11/2025 12:03 AM Dictation workstation: [id number] No results found for this or any previous visit. DATA: EKG: QTC Encounter Date: 05/10/25 ECG 12 lead Result Value Ventricular Rate 72 Atrial Rate 72 AK Interval 190 QRS Duration 104 QT Interval 394 QTC Calculation(Bazett) 431 P Pantego 31 R Pantego -15 T Pantego 44 QRS Count 12 Q Onset 210 P Onset 115 P Offset 178 T Offset 407 QTC Fredericia 418 Narrative Normal sinus rhythm Normal ECG When compared with ECG of 10-MAY-2025 13:54, No significant change was found See ED provider note for full interpretation and clinical correlation Confirmed by Yolanda Garcia ([id number]) on 05/11/2025 3:47:31 AM Anti-psychotics in 48 [...] Goals of Care: -Health care power of esthetician: Diya () -Living will: present Code status: FULL CODE Geriatric medicine will continue to follow the patient. Thank you for allowing geriatric medicine to be involved in the care of your patient. Geriatric medicine consultation team is available during work hours Sunday through Sunday. For any emergency issues requiring immediate assistance over the weekend, please page Geriatrics pager [phone] Consult Billing Time Prep time on date [...] 17 g 17 g oral Daily Daryl Rolleight pravastatin (Pravachol) tablet 40 mg 40 mg [...] in this hospital; stay. Zahira Douglas MD [facility] Work Phone: 05-12-2025 Hospital Note Formatting of t his note might be different from the original. 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 Patient was found to have right [...] PT/OT and has been recommended SNF placement. 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 Kristy Ramos in 2 weeks. Call [phone] to schedule appointment. - Please don't hesitate to page with questions DISPOSITION: Per primary, pending trial of ambulation This patient was staffed with the attending physician, Dr. Kristy Resendiz MD Orthopedic Surgery PGY-2 [facility] While admitted, this patient will be followed by the Orthopedic Trauma Team. Please contact the residents listed below with any questions. For urgent matters at any time, or for any needs between 6 PM and 6 AM Sunday through Sunday, on weekends, or on holidays, please page the Orthopaedic Surgery [place] [phone]. Trauma: First Call: Antonio Guzman, PGY-1/Heike Arzate, PGY-1 Second Call: Sally Cutler, PGY-2 Third Call: Chente Ricci, PGY-3 Cosigned by Kristy Ramos MD at 05/11/2025 1:[address] [facility] Work Phone: 05-10-2025 Consult note Associated Order (s): IP CONSULT TO ENT ENT DEPARTMENT CONSULTATION NOTE Name: Fawn Cameron : 1935 Consulting Attending: Carri Greer MD;Leonardo* Reason for Consult: Orbital roof fracture Patient History of Present Illness 89 y.o. male presented to [facility] on 05/10 after sustaining injuries from a [...] smoke. You may use saline nasal spray ([place]) and Afrin as needed for congestion and bleeding. If using Afrin please take as permitted on the bottle (for every 3 days of use you must take a 1 day holiday before using it again). Note not final until signed by an attending. Riaz Carrillo MD - PGY2 Otolaryngology - Head and Neck Surgery Head & Neck team phone: [phone] ENT consult pager: [phone] Pediatric ENT pager: [phone] ENT Outpatient scheduling number: [phone] [1] Past Medical History: Diagnosis Date Arthritis [...] Name Age of Onset Heart murmur Mother Union Obrecht Hyperlipidemia Mother Union Obrecht Arthritis Mother Union Obrecht Hearing loss Mother Union Obrecht Hypertension Mother Union Obrecht Vision loss Mother Union Obrecht Other (CARDIAC DISORDER) Father Pneumonia Father [...] Khoury MD at 05/14/2025 9:[address] [facility] Work Phone: 05-10-2025 History and physical note [facility] TRAUMA SERVICE - HISTORY AND PHYSICAL / CONSULT Patient Name: Fawn Cameron Admit Date: [id number] : 1935 AGE: 89 y.o. 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 LOC (yes/no?): Yes Anticoagulant / Anti-platelet Rx? (for what dx?): ASA 81 Referring Facility Name (N/A for scene EMR run): [facility] INJURIES: Right orbital floor Mild buckled fracture [...] the right; 1+ on the left. Disability [place] Coma Score Eye:4 Verbal:5 Motor:6 15 Pupils Right Pupil: round and reactive 3 mm Left Pupil: round and reactive 3 mm Motor Strength [employer] Journalist strength: 5/5 on the right 5/5 on [...] Name Age of Onset Heart murmur Mother Union Obrecht Hyperlipidemia Mother Union Obrecht Arthritis Mother Union Obrecht Hearing loss Mother Union Obrecht Hypertension Mother Union Obrecht Vision loss Mother Union Obrecht Other (CARDIAC DISORDER) Father Pneumonia Father [...] documented in the note. Kristy Giraldo DO [facility] Work Phone: 05-10-2025 History and physical note [facility] TRAUMA SERVICE - HISTORY AND PHYSICAL / CONSULT Patient Name: Fawn Cameron Admit Date: [id number] : 1935 AGE: 89 y.o. 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 LOC (yes/no?): Yes Anticoagulant / Anti-platelet Rx? (for what dx?): ASA 81 Referring Facility Name (N/A for scene EMR run): [facility] INJURIES: Right orbital floor Mild buckled fracture [...] round and reactive 3 mm Motor [employer] Journalist strength: 5/5 on the right 5/5 on [...] Name Age of Onset Heart murmur Mother Union Obrecht Hyperlipidemia Mother Union Obrecht Arthritis Mother Union Obrecht Hearing loss Mother Union Obrecht Hypertension Mother Union Obrecht Vision loss Mother Union Obrecht Other (CARDIAC DISORDER) Father Pneumonia Father [...] Kristy Giraldo DO documented in this encounter [facility] Work Phone: 05-10-2025 Consult note Associated Order (s): IP CONSULT TO OPHTHALMOLOGY Reason For Consult Right orbital fracture History Of Present Illness Fawn Leigh Nisha Andres is a 89 y.o. male presenting after [...] ophthalmology for dilated eye exam when cleared [phone] Recommend follow-up with [facility], within 1-2 weeks. Please call [phone] (EYES) to make appointment. Thank you for the consult. Please contact the Ophthalmology service with further questions or concerns. Abigail Richardson MD Ophthalmology, PGY-3 Ophthalmology Adult Pager - [phone] Ophthalmology Pediatrics Pager (8am- 5pm) - [phone] For adult follow-up appointments, call: [phone] For pediatric follow-up appointments, call: [phone] NOTE: This note is not finalized until [...] decision making as documented in the note. [facility] Work Phone: 05-10-2025 Physician Emergency department Note CC: Fall History provided by: Patient Limitations to History: None HPI: Patient is a 89-year-old male with a PMH of GERD, hypertension, osteoarthritis, CAD, remote TIA, and infrarenal AAA who presents to the hospital via EMS from [facility] for a chief complaint of fall. Patient [...] as of 05/15/25 1250 Sun May 10, 2025 2209 Discussed with ophthalmology. They will evaluate the [...] with the documented findings. Carri Greer MD [facility] Work Phone: 05-10-2025 Emergency department Note CC: Fall History provided by: Patient Limitations to History: None HPI: Patient is a 89-year-old male with a PMH of GERD, hypertension, osteoarthritis, CAD, remote TIA, and infrarenal AAA who presents to the hospital via EMS from [facility] for a chief complaint of fall. Patient [...] findings. Carri Greer MD Patient transferred [place] [facility] [place] [facility] for trauma consult after a fall. Patient [...] x4 upon arrival. documented in this encounter [facility] Work Phone: 05-10-2025 Emergency department Triage note Patient transferred [place] [facility] [place] [facility] for trauma consult after a fall. Patient [...] subarachnoid hemorrhage. Patient A&O x4 upon arrival. [facility] Work Phone: 05-10-2025 Physician Emergency department [...] No treatment, delayed treatment, observation and referral Romance protocol: Procedure explained and questions answered to [...] no immediate complications Brandee Hawkins PA-C 05/10/[address] [facility] Work Phone: 05-10-2025 Emergency department Note [...] No treatment, delayed treatment, observation and referral Romance protocol: Procedure explained and questions answered to [...] no immediate complications Brandee Hawkins PA-C 05/10/25 1907 HPI Chief Complaint Patient presents with Fall [...] Patient History limited by: Mental status change tipple tender used: No Patient History Medical History[1] Surgical [...] ring, initial encounter (Multi) No data recorded [place] Coma Scale Score: 14 (05/10/25 1402 : [...] case was discussed with Dr. Giraldo from [facility] who accepted the patient as a ER [...] Name Age of Onset Heart murmur Mother Union Obrecht Hyperlipidemia Mother Union Obrecht Arthritis Mother Union Obrecht Hearing loss Mother Union Obrecht Hypertension Mother Union Obrecht Vision loss Mother Union Obrecht Other (CARDIAC DISORDER) Father Pneumonia Father [...] Drug use: Never Santiago Menendez DO 05/10/25 9598 documented in this encounter [facility] Work Phone: 05-10-2025 Physician Emergency department [...] Patient History limited by: Mental status change tipple tender used: No Patient History Medical History[1] Surgical [...] case was discussed with Dr. Giraldo from [facility] who accepted the patient as a ER [...] Name Age of Onset Heart murmur Mother Union Obrecht Hyperlipidemia Mother Union Obrecht Arthritis Mother Union Obrecht Hearing loss Mother Union Obrecht Hypertension Mother Union Obrecht Vision loss Mother Union Obrecht Other (CARDIAC DISORDER) Father Pneumonia Father [...] use: Never Santiago Menendez DO 05/10/[address] [facility] Work Phone: 05-08-2025 Reason for visit Narrative Specialty Diagnoses / Procedures Referred By Contac t Referred To Contact Radiology Diagnoses Neck pain Procedures XR cervical spine 2-3 views Don Barrera MD [address] [place], [place] [address] Phone: tel: fax: Referral ID Status Reason Start Date Expiration Date Visits Requested Visits Authorized [id number] Authorized Perform Procedure 05/07/2025 05/07/[address] [facility] Work Phone: 1(266) 372-967407-17-2025 History of Present illness Narrative* Don Barrera [...] Referral to Physical [facility]: 1(926) 245-372706-20-2025 History of Present illness Narrative* GINA Dickerson - 04/10/2025 10:[address] [facility] GINA Dickerson Visit [...] has never used smokeless tobacco. 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 CHIEF COMPLAINT: Chief Complaint Patient presents with [...] Sunday.. ,R07.81 Pleurodynia COMPARISON: None. ACCESSION NUMBER(S): [id number] ORDERING CLINICIAN: LINCOLN KING FINDINGS: Cardiac silhouette within normal limits. Mild bibasilar fibrotic stranding. No focal infiltrate, pleural effusion or pneumothorax. Nondisplaced fracture of the anterior left 6th rib. IMPRESSION: Nondisplaced fracture anterior left 6th rib. No pneumothorax. MACRO: None Signed by: Howard Elias 04/10/2025 1:50 PM Dictation workstation: [id number] IMPRESSION/PLAN: Course: Worsening; stable 1. Rib pain [...] discussion, and agreed with plan of care. Lincoln King APRN-STEEL HANDLER Advanced Practice Provider 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 Nails 81679 left foot nails 59615 right foot are elongated thickened mycotic crumbling [...] AUTHENTICATED BY ELADIO KINGSLEY JR., ON 04/10/2025 08:19:02[facility]06-20-2025 History of Present illness Narrative* Eladio Kingsley [...] than 5 seconds to distal digits. Nails 65674 left foot nails 52375 right foot are elongated thickened mycotic crumbling [...] for foot nail care documented in this [id number] NoteHNO ID: [id number] Author: DELTA BANGURA MD Service: ? Author [...] Patient was instructed to call the office ([phone]) immediately upon noticing flashes of light, increase [...] and agree with all of its relevant components.[facility]03-21-2025 NotePatient is a pleasant 89-year-old male who [...] than 5 seconds to distal digits. Nails 74849 left foot nails 31808 right foot are elongated thickened mycotic crumbling [...] AUTHENTICATED BY ELADIO KINGSLEY JR., ON 01/09/2025 08:22:08[facility]03-21-2025 History of Present illness Narrative* Eladio Kingsley [...] than 5 seconds to distal digits. Nails 19811 left foot nails 33694 right foot are elongated thickened mycotic crumbling [...] for foot nail care documented in this [id number] Evaluation + Plan note* Assessment & Plan Note - Don Barrera MD - 11/20/2024 8:25 AM EST Associated Problem(s): Osteoarthritis Seeing pain medicine physician, epidural steroid injection somewhat helpful with hip pain but not really helpful with low back pain. 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 [facility] Work Phone: 1(354) 609-750101-30-2025 Evaluation + Plan note* Assessment & Plan Note - Don Barrera MD - 11/20/2024 8:25 AM ESTAssociated Problem(s): MARIANGEL (generalized anxiety disorder) Stable with medication, interrupting day-to-day life, satisfied with current level of anxiety. [facility] Work Phone: 1([phone]) 447-218201-30-2025 Miscellaneous Notes* Assessment & Plan Note - [...] Asymptomatic with medication. 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 * Assessment & Plan Note - Don Barrera MD - 11/20/2024 8:24 AM EST Associated Problem(s): Hypertension Blood pressure under good control, electrolyte and renal functions recently were normal. * Assessment & Plan Note - Don Barrera MD - 11/20/2024 8:24 AM EST Associated Problem(s): Abdominal aneurysm ([facility]-HCC) Ultrasound last May was stable. * Assessment & Plan Note - Don Barrera MD - 11/20/2024 8:24 AM EST Associated Problem(s): Hyperlipidemia Thick LDL cholesterol today, continue with current medication. documented in this [facility] Work Phone: 1(617) 738-105801-30-2025 Evaluation + Plan note* Assessment & Plan Note - Don Barrera MD - 11/20/2024 8:24 AM ESTAssociated Problem(s): BPH (benign prostatic hyperplasia) Currently he is stable, does have some nocturia, check PSA at follow-up appointment, could consideradding tamsulosin but concerned about possible dizziness side effect [facility] Work Phone: [phone]) 600-682701-30-2025 Evaluation + Plan note* Assessment & Plan Note - Don Barrera MD - 11/20/2024 8:24 AM ESTAssociated Problem(s): 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 Asymptomatic with medication. [facility] Work Phone: 1([phone]) 900-659401-30-2025 Evaluation + Plan note* Assessment & Plan Note - Don Barrera MD - 11/20/2024 8:24 AM ESTAssociated Problem(s): Peripheral arterial occlusive disease ([facility]-HCC) Complaining of claudication. [facility] Work Phone: 1(271) 653-325101-30-2025 Evaluation + Plan note* Assessment & Plan Note - Don Barrera MD - 11/20/2024 8:24 AM ESTAssociated Problem(s): Hypertension Blood pressure under good control, electrolyte and renal functions recently were normal. [facility] Work Phone: [phone] 895-153401-30-2025 Evaluation + Plan note* Assessment & Plan Note - Don Barrera MD - 11/20/2024 8:24 AM ESTAssociated Problem(s): Abdominal aneurysm ([facility]-HCC) Ultrasound last May was stable. [facility] Work Phone: [phone]) 358-878201-30-2025 Evaluation + Plan note* Assessment & Plan Note - Don Barrera MD - 11/20/2024 8:24 AM ESTAssociated Problem(s): Hyperlipidemia Thick LDL cholesterol today, continue with current medication. [facility] Work Phone: [phone] 321-286901-30-2025 History of Present illness Narrative* Don Barrera [...] abdominal pain. Has seen pain medicine in [place], had MARY, some help Vertigo better Some [...] Comprehensive Metabolic Panel Lipid Panel Abdominal aneurysm ([facility] I71.40 Ultrasound last May was stable. Relevant [...] Care - Established Peripheral arterial occlusive disease ([facility] I77.9 Complaining of claudication. Relevant Orders Follow [...] Prostate Specific Antigen, Screen documented in this [facility] Work Phone: 1(672) 244-565912-11-2024 NotePatient is a pleasant 89-year-old male who [...] than 5 seconds to distal digits. Nails 71294 left foot nails 60178 right foot are elongated thickened mycotic crumbling [...] AUTHENTICATED BY ELADIO KINGSLEY JR., ON 10/01/2024 08:32:38[facility] [id number] History of Present illness Narrative* Eladio Kingsley [...] than 5 seconds to distal digits. Nails 95116 left foot nails 00939 right foot are elongated thickened mycotic crumbling [...] for foot nail care documented in this [id number] History of Present illness Narrative* Don Barrera [...] Mental status is at baseline. Comments: Positive Eros-Hallpike maneuver to the right. Psychiatric: Mood and [...] tablet Other Relevant Orders Holter Or Event Concrete Wall Grinder Operator CBC and Auto Differential Comprehensive Metabolic Panel TSH with reflex to Free T4 if abnormal ECG 12 Lead (Completed) Palpitations R00.2 Concern today when nurse taking vital signs elevated heart rate, EKG stable, normal exam today, check labs and Holter to rule out A-fib Relevant Medications folic acid (Folvite) 1 mg tablet Other Relevant Orders Holter Or Event Concrete Wall Grinder Operator CBC and Auto Differential Comprehensive Metabolic Panel TSH with reflex to Free T4 if abnormal ECG 12 Lead (Completed) [facility]: 1(673) 220-807809-12-2024 History of Present illness Narrative* Otoniel Salcedo [...] Name Age of Onset Heart murmur Mother Union Obrecht Hyperlipidemia Mother Union Obrecht Arthritis Mother Union Obrecht Hearing loss Mother Union Obrecht Hypertension Mother Union Obrecht Vision loss Mother Union Obrecht Other (CARDIAC DISORDER) Father Pneumonia Father [...] months Vascular US [place] [address] [phone], Vascular Lab Report VASC US AORTA ILIAC DUPLEX COMPLETE Patient Name: FAWN CAMERON Reading Physician: [id number] Miller Abdalla MD, SILVANA Study Date: 06/17/2024 Ordering Provider: [id number] DON BARRERA MRN/PID: [id number] Fellow: Technologist: Annamaria Cornejo RVT/ Date of /Age: 5 1935 / 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: Gender: M Admission Status: Outpatient Location Performed: [facility] Diagnosis/ICD: Abdominal aortic aneurysm, without rupture, unspecified-I71.40 CPT Codes: 56164 Duplex Aorta/IVC/Iliac/Bypass Graft CONCLUSIONS: Aorta/Common Iliac Arteries/IVC: [...] Proximal 1.40 cm 1.30 cm 142.00 cm/s Olegario Abdalla MD, SILVANA Final Impression Fawn Cameron [...] Salcedo MD Advanced Heart Failure/Transplant Cardiology Cardio-Oncology [facility] documented in this [facility] Work Phone: 1([phone]) 213-765708-16-2024 NotePatient is a pleasant 89-year-old male who [...] than 5 seconds to distal digits. Nails 00616 left foot nails 96880 right foot are elongated thickened mycotic crumbling [...] AUTHENTICATED BY ELADIO KINGSLEY JR., ON 06/06/2024 08:21:01[facility]08-16-2024 History of Present illness Narrative* Eladio Kingsley [...] than 5 seconds to distal digits. Nails 04654 left foot nails 38371 right foot are elongated thickened mycotic crumbling [...] for foot nail care documented in this [id number] Instructions* Patient Instructions* Delta Bangura MD - 03/05/2024 10:03 AM EDT Please monitor each eye daily with Amsler Grid. AREDS 2 Vitamins are available over the counter at any drug store. Follow up with Dr. Soria for updated refraction and glasses. Return here in 1 year Patient was instructed to call the office ([phone]) immediately upon noticing flashes of light, increase in floaters, or changes in vision. If you have any questions please contact our office at [phone]. After office hours or on the weekend, please call Dr. Bangura on his cell phone at [phone]. documented in this [facility]24 NoteDate of Procedure 03/05/2024. Well Services Operator Information Transition Nurse: TK. Interpretation Right Eye Normal without fluid. Findings include Drusen, RPE Irregularity. Left Eye Abnormal foveal contour. Findings include Drusen, Epiretinal membrane, RPE Irregularity. Interval Change Right Eye Stable. Left Eye Stable.[id number] History of Present illness Narrative* Delta Bangura [...] Patient was instructed to call the office ([phone]) immediately upon noticing flashes of light, increase [...] others. I have seen and examined Fawn Leigh Nisha. I have discussed the case and the management of this patient's care with the Resident/Fellow, if applicable. I also have reviewed and agree with the assessment and plan as stated above and agree withall of its relevant components. documented in this encounterMemorial [facility]05-10-2024 History of Present illness Narrative* Eladio [...] than 5 seconds to distal digits. Nails 32314 left foot nails 84857 right foot are elongated thickened mycotic crumbling [...] for foot nail care documented in this [id number] History of Present illness Narrative* Sage Kwon MD - 02/12/2024 9:56 AM EDT New Patient Visit [facility] [address], [address], [place] [address] (office) Date of service: 02/12/2024 ID: Fawn [...] of abdominal wall, History of cardiac cath, NISQUALLY (hard of hearing), Hyperlipidemia, Hypertension, HANNAH (juvenile idiopathic arthritis), polyarthritis, rheumat factor neg ([facility]), Nail disorder, OM (onychomycosis), JOSEFA (obstructive sleep apnea), Osteoarthritis, PAD (peripheral artery disease) ([facility]), and TIA (transient ischemic attack) (12/2020). Past [...] to confrontation. PERRL. Normal conjunctivae and lids. will call order clerk III, IV and : extraocular movements intact. [...] Achilles 0 0 Babinski Down Down Coordination: Qazmzn-pe-kjgr intact bilaterally. Mild in hands physiologic tremors [...] 6 months (around 08/13/2024). Sage Kwon MD Medical Legal Investigator Neurologist [facility]. Timed code: 68 minutes [...] and other health records. documented in this [id number] Emergency department Note* Celso Cabezas DO - [...] Name Age of Onset Heart murmur Mother Union Obrecht Hyperlipidemia Mother Union Obrecht Arthritis Mother Union Obrecht Hearing loss Mother Union Obrecht Hypertension Mother Union Obrecht Vision loss Mother Union Obrecht Other (CARDIAC DISORDER) Father Pneumonia Father [...] performed using a different testing methodology at [facility] than at other [facility]. Direct result comparisons should only be made within the same method. URINALYSIS WITH REFLEX CULTURE AND MICROSCOPIC - Normal Color, Urine Straw Appearance, Urine Clear Specific Trimble, Urine 1.006 pH, Urine 7.0 Protein, Urine NEGATIVE Glucose, Urine NEGATIVE Blood, Urine NEGATIVE Ketones, Urine NEGATIVE Bilirubin, Urine NEGATIVE Urobilinogen, Urine <2.0 Nitrite, Urine NEGATIVE Leukocyte Esterase, Urine NEGATIVE URINALYSIS WITH REFLEX CULTURE AND MICROSCOPIC Narrative: The following orders were created for panel order Urinalysis with Reflex Culture and Microscopic. Procedure Abnormality Status --------- ------ Urinalysis with Reflex C...[[id number]] Normal Final result Extra Urine Callaway Tube[[id number]] In process Please view results for these [...] Kvng Meléndez 12/07/2023 12:24 PM Dictation workstation: [id number] Medical Decision Making: Patient appears well nontoxic. [...] ED Physician in the absence of a web marketing coordinator: yes Comments: EKG interpreted by Dr. Celso Cabezas: Normal sinus rhythm at 69 bpm. AK interval 170 ms. QTc of437 ms. PACs. Celso Cabezas DO 12/07/23 1250 documented in this [facility] Work Phone: 1([phone]) 690-733202-16-2024 Physician Emergency department Note* Celso Cabezas DO [...] Name Age of Onset Heart murmur Mother Union Obrecht Hyperlipidemia Mother Union Obrecht Arthritis Mother Union Obrecht Hearing loss Mother Union Obrecht Hypertension Mother Union Obrecht Vision loss Mother Union Obrecht Other (CARDIAC DISORDER) Father Pneumonia Father [...] performed using a different testing methodology at [facility] than at [facility]. Direct result comparisons should only be made within the same method. URINALYSIS WITH REFLEX CULTURE AND MICROSCOPIC - Normal Color, Urine Straw Appearance, Urine Clear Specific Trimble, Urine 1.006 pH, Urine 7.0 Protein, Urine NEGATIVE Glucose, Urine NEGATIVE Blood, Urine NEGATIVE Ketones, Urine NEGATIVE Bilirubin, Urine NEGATIVE Urobilinogen, Urine <2.0 Nitrite, Urine NEGATIVE Leukocyte Esterase, Urine NEGATIVE URINALYSIS WITH REFLEX CULTURE AND MICROSCOPIC Narrative: The following orders were created for panel order Urinalysis with Reflex Culture and Microscopic. Procedure Abnormality Status --------- ------ Urinalysis with Reflex C...[[id number]] Normal Final result Extra Urine Callaway Tube[[id number]] In process Please view results for these [...] Kvng Meléndez 12/07/2023 12:24 PM Dictation workstation: [id number] Medical Decision Making: Patient appears well nontoxic. [...] ED Physician in the absence of a web marketing coordinator: yes Comments: EKG interpreted by Dr. Celso Cabezas: Normal sinus rhythm at 69 bpm. AK interval 170 ms. QTc of437 ms. PACs. Celso Cabezas DO 12/07/23 1250 [facility] Work Phone: 1(174) 853-912402-16-2024 Reason for referral (narrative)* Consultation (Routine) - Authorized Specialty Diagnoses / Procedures Referred By Contac t Referred To Contact Otolaryngology Celso Cabezas DO [address] [place] [address] Department Emergency Medicine [place] [id number] Referral ID Status Reason Start Date Expiration Date Visits Requested Visits Authorized [id number] Authorized Specialty Services Required 12/07/2023 12/06/2024 1 1 * Consultation (Routine) - Authorized Specialty Diagnoses / Procedures Referred By Contac t Referred To Contact Family Medicine / Primary Care Celso Cabezas DO [address] [place] [address] Referral ID Status Reason Start Date Expiration Date Visits Requested Visits Authorized [id number] Authorized Specialty Services Required 12/07/2023 12/06/[address] [facility] Work Phone: 1(385) 386-404102-09-2024 History of Present illness Narrative* Eladio Kingsley Jr., DPMonty - 11/30/2023 8:07 AM EST Patient is [...] than 5 seconds to distal digits. Nails 89542 left foot nails 66651 right foot are elongated thickened mycotic crumbling [...] for foot nail care documented in this [id number] History of Present illness Narrative* Daysi Arenas, - 11/15/2023 8:15 AM EST Subjective Patient [...] DO 11/15/23 8:27 AM [facility] Work Phone: 1(325) 299-166701-25-2024 Reason for referral (narrative)* Consultation (Routine) - Authorized Specialty Diagnoses / Procedures Referred By Foster bland Referred To Contact Family Medicine / Primary Care Bhargavi Feliciano PA-C [facility] [place] [address] Referral ID Status Reason Start Date Expiration Date Visits Requested Visits Authorized [id number] Authorized Specialty Services Required 11/15/2023 11/14/[address] [facility] Work Phone: 1(478) 885-185001-21-2024 Hospital Discharge instructions* Discharge Instructions* Sai Myers MD - 11/11/2023 10:19 PM EST Recommend contacting your primary care physician's office tomorrow. [facility] Work [facility] [phone]) 524-920501-15-2024 Evaluation + Plan note* Assessment & Plan Note - Don Barrera MD - 11/05/2023 12:36 PM ESTAssociated Problem(s): MARIANGEL (generalized anxiety disorder) Patient uncomfortable with anxiety, some trouble sleeping at night, able to accomplish day-to-day activities without difficulty, try low-dose sertraline. [facility] Work Phone: [phone] Evaluation + Plan note* Assessment & Plan Note - Don Barrera MD - 11/05/2023 12:36 PM ESTAssociated Problem(s): Lumbosacral spondylosis Patient requested to see pain management again. [facility] Work Phone: [phone]) [phone] Miscellaneous Notes* Assessment & Plan Note - [...] claudication. Carotid ultrasound up-to-date. documented in this [facility] Work Phone: [phone] 455-496001-15-2024 Evaluation + Plan note* Assessment & Plan Note - Don Barrera MD - 11/05/2023 12:35 PM ESTAssociated Problem(s): BPH (benign prostatic hyperplasia) Currently stable no change. [facility] Work Phone: [phone] 466-771301-15-2024 Evaluation + Plan note* Assessment & Plan Note - Don Barrera MD - 11/05/2023 12:35 PM ESTAssociated Problem(s): 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 To have esophagram done tomorrow, following with gastroenterology, taking PPI twice a day, no longer taking Carafate, dysphagia depends on diet. [facility] Work Phone: [phone]) 251-304001-15-2024 Evaluation + Plan note* Assessment & Plan Note - Don Barrera MD - 11/05/2023 12:35 PM ESTAssociated Problem(s): Hypertension Blood pressure under good control renal function stable, no change. [facility] Work Phone: [phone]) [phone] Evaluation + Plan note* Assessment & Plan Note - Don Barrera MD - 11/05/2023 12:35 PM ESTAssociated Problem(s): Abdominal aneurysm (CMS/HCC) Ultrasound stable within the past year. [facility] Work Phone: [phone] 381-137301-15-2024 Evaluation + Plan note* Assessment & Plan Note - Don Barrera MD - 11/05/2023 12:35 PM ESTAssociated Problem(s): Hyperlipidemia Taking and tolerating pravastatin, liver function testing normal, no change. [facility] Work Phone: [phone]) 290-490001-15-2024 Evaluation + Plan note* Assessment & Plan Note - Don Barrera MD - 11/05/2023 12:34 PM ESTAssociated Problem(s): Inflammatory polyarthropathy (CMS/HCC) Follows with rheumatology on a regular basis. [facility] Work Phone: [phone] Evaluation + Plan note* Assessment & Plan Note - Don Barrera MD - 11/05/2023 12:34 PM ESTAssociated Problem(s): Peripheral arterial occlusive disease (CMS/HCC) No active signs or symptoms of claudication. Carotid ultrasound up-to-date. [facility] Work Phone: 1([phone]) 553-565001-15-2024 History of Present illness Narrative* Don Barrera [...] In Primary Care - Established Abdominal aneurysm ([facility]) I71.40 Ultrasound stable within the past year. Hypertension - Primary I10 Blood pressure under good control renal function stable, no change. Relevant Orders Comprehensive Metabolic Panel Follow Up In Primary Care - Established Lumbosacral spondylosis M47.817 Patient requested to see pain management again. Relevant Orders Referral to Pain Medicine Follow Up In Primary Care - Established Peripheral arterial occlusive disease ([facility]) I77.9 No active signs or symptoms of claudication. Carotid ultrasound up-to-date. Inflammatory polyarthropathy ([facility]) M06.4 Follows with rheumatology on a regular [...] Primary Care - Established documented in this [facility] Work Phone: [phone] 284-873601-11-2024 History of Present illness Narrative* Daysi Arenas DO - 11/01/2023 1:15 PM EST Subjective Patient ID: Fawn Campos is a 88 y.o. male who presents for GERD and Dysphagia (X 2 months Breads, scalloped potatoes, dipper and drier foods. ). GERD He reports no abdominal [...] DO 11/01/23 1:18 PM documented in this [facility] Work Phone: [phone] History of Present illness Narrative* Eladio Kingsley Jr., ROMA - 10/31/2023 8:13 AM EST Left medial [...] acute on chronic nature. documented in this [id number] History of Present illness Narrative* Eladio iKngsley Jr., DPM - 10/24/2023 8:41 AM EST [...] and set for 2 minutes. Utilizing an Gambian anvil and 6100 blade, the nail medially [...] antiplatelet risk with aspirin. documented in this [id number] Instructions* Patient Instructions* Ayana Bojorquez, TECHNOLOGIST - [...] daily until follow-up appointment. documented in this [id number] History of Present illness Narrative* Eladio Kingsley [...] medical complexity decision making. documented in this [id number] History of Present illness Narrative* Clark Lees PA-C - 10/06/2023 11:[address] [facility] [place] NOTE: Name: Fawn Cameron, 88 y.o. CSN:[id number] PCP: Don Barrera MD ALL: No Known [...] Smoking status: Former Types: Cigarettes Quit date: 1963 Years since quittin.9 Smokeless tobacco: Never Vaping [...] Ketones, Urine NEGATIVE NEGATIVE mg/dl POC Specific Trimble, Urine 1.015 1.005 - 1.035 POC Blood, [...] available. Clark Lees PA-C Advanced Practice Provider [facility] documented in this [facility] Work Phone: [phone]) [phone] Instructions* Patient Instructions* Clark Lees PA-C - [...] blood in your urine. documented in this [facility] Work Phone: [phone] 318-217712-08-2023 Evaluation + Plan note* Assessment & Plan Note - Don Barrera MD - 09/28/2023 4:10 PM ESTAssociated Problem(s): 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 Patient with increasing refluxing, burping belching, advised to increase PPI to twice daily for thenext week, Co. prescribe Carafate for the next week to 10 days, call if not improving, sent for EGD. [facility] Work Phone: [phone] Miscellaneous Notes* Assessment & Plan Note - Don Barrera MD - 09/28/2023 4:10 PM ESTAssociated Problem(s): 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 Patient with increasing refluxing, burping belching, advised to increase PPI to twice daily for thenext week, Co. prescribe Carafate for the next week to 10 days, call if not improving, sent for EGD. [facility] in [facility] Work [facility]: [phone] History of Present illness Narrative* Don Barrera [...] Orders Referral to Gastroenterology documented in [facility] Work [facility]: [phone] Instructions* Patient Instructions* Don aBrrera MD - 09/28/2023 2:20 PM EST Take omeprazole twice a day for the next week, add Carafate for the next week and we are going to take a look at your stomach documented in [facility] Work Phone: [phone] 412-480511-27-2023 History of Present illness Narrative* Robb Colindres [...] with PSA 1 year documented in this [facility] Work Phone: [phone] Instructions* Patient Instructions* Delta Bangura MD - 08/29/2023 10:15 AM EST Please monitor each eye daily with Amsler Grid. AREDS 2 Vitamins are available over the counter at any drug store. -continue: Blink tears artificial tears- 1 drop three times a day Both eyes . Please call the office ([phone]) immediately if you notice more flashes of light, a sudden increase in floaters, or a sudden change in vision. If you have any questions please contact our office at [phone]. After office hours or on the weekend, please call Dr. Bangura on his cell phone at [phone]. documented in this encounterMem[facility]11-08-2023 History of Present illness Narrative* Delta [...] 379.21, ICD10: H43.813 -Please call the office ([phone]) immediately if you notice more flashes of [...] technical staff.I have seen and examined Fawn Cameron. I have discussed the examination findings, diagnosis, and treatment options with Fawn Cameron and/or his family. I have also reviewed and agree with the assessment and plan as stated above and agree with all its relevant components. I gave the patient the opportunity to ask questions about the findings, diagnosis, and treatment options. Delta Bangura MD' documented in this encounterMem[facility]10-01-2023 Emergency department Note * Sai Myers [...] little woozy but his dizziness has resolved. [place] Coma Scale Score: 15 Patient History Past [...] Smoking status: Former Types: Cigarettes Quit date: 1963 Years since quittin.7 Smokeless tobacco: Never Vaping Use Vaping Use: Never used Substance Use Topics Alcohol use: Not Currently Drug use: Defer Physical Exam ED Triage Vitals [07/22/239] Temp Heart Rate Resp BP 36.5 C [...] his BP being elevated. [facility] Work Phone: 1([phone]) 348-128610-01-2023 Emergency department Triage note* ANNIE Albarran - [...] was due to his BP being elevated. [facility] Work Phone: [phone] 349-738410-01-2023 Physician Emergency department Note* Sai Myers MD [...] little woozy but his dizziness has resolved. [place] Coma Scale Score: 15 Patient History Past [...] Smoking status: Former Types: Cigarettes Quit date: 1963 Years since quittin.7 Smokeless tobacco: Never Vaping [...] Procedure Procedures Sai Myers MD 07/23/[address] [facility] Work Phone: [phone] Evaluation + Plan note* Assessment & Plan [...] office if the injection is not helpful. [facility] Work Phone: [phone] Miscellaneous Notes* Assessment & Plan Note - [...] injection is not helpful. documented in this [facility] Work Phone: [phone]) 486-889208-10-2023 History of Present illness Narrative* Don Barrera [...] injection is not helpful. documented in this [facility] Work Phone: [phone] Evaluation + Plan note* Assessment & Plan Note - Don Barrera MD - 05/04/2023 10:19 AM EDTAssociated Problem(s): BPH (benign prostatic hyperplasia) Some symptoms, not inhibiting day-to-day activities. [facility] Work Phone: [phone] Miscellaneous Notes* Assessment & Plan Note - [...] continue with current medication. documented in this [facility] Work Phone: [phone]) [phone] Evaluation + Plan note* Assessment & Plan Note - Don Barrera MD - 05/04/2023 10:18 AM EDTAssociated Problem(s): Peripheral arterial occlusive disease (CMS/HCC) Check abdominal ultrasound to evaluate AAA. [facility] Work Phone: [phone] 611-276507-14-2023 Evaluation + Plan note* Assessment & Plan Note - Don Barrera MD - 05/04/2023 10:18 AM EDTAssociated Problem(s): Hypertension Blood pressure under good control, no change with medication. [facility] Work Phone: [phone] Evaluation + Plan note* Assessment & Plan Note - Don Barrera MD - 05/04/2023 10:18 AM EDTAssociated Problem(s): Abdominal aneurysm (CMS/HCC) Check ultrasound to evaluate for any change. Last ultrasound was a year ago. [facility] Work Phone: [phone] Evaluation + Plan note* Assessment & Plan Note - Don Barrera MD - 05/04/2023 10:18 AM EDTAssociated Problem(s): Hyperlipidemia Laboratory testing is normal, continue with current medication. [facility] Work Phone: [phone] History of Present illness Narrative* Don Barrera [...] General [facility] Attributed Provider Review of Systems Constitutional: [...] Infrarenal abdominal aortic aneurysm (AAA) without rupture ([facility]/HCC) Relevant Orders Vascular US abdominal aorta anuerysm AAA screening [facility] in [facility] Work Phone: [phone] 116-692905-03-2023 Instructions* Patient Instructions* Delta Bangura MD - 02/21/2023 8:42 AM EDT Continue: Blink tears three times a day Both eyes If you have any questions please contact our office at [phone]. After office hours or on the weekend, please call Dr. Bangura on his cell phone at [phone]. documented in this encounterMem[facility]05-03-2023 History of Present illness Narrative* Delta [...] 379.21, ICD10: H43.813 -Please call the office ([phone]) immediately if you notice more flashes of [...] technical staff.I have seen and examined Fawn Leigh Nisha. I have discussed the examination findings, diagnosis, and treatment options with Fawn Lu Cameron and/or his family. I have also reviewed and agree with the assessment and plan as stated above and agree with all its relevant components. I gave the patient the opportunity to ask questions about the findings, diagnosis, and treatment options. Delta Bangura MD documented in this encounterMem[facility]04-21-2023 History of Present illness Narrative* Eladio [...] than 5 seconds to distal digits. Nails 62669 left foot nails 95492 right foot are elongated thickened mycotic crumbling [...] for foot nail care documented in this [id number] History of Present illness Narrative* Eladio Kingsley [...] than 5 seconds to distal digits. Nails 76525 left foot nails 59280 right foot are elongated thickened mycotic crumbling [...] for foot nail care documented in this [id number] History of Present illness Narrative* No headache, [...] summer, some urine urge [facility] Work Phone: [phone]) 111-351710-28-2022 History of Present illness Narrative* Eladio Kingsley [...] than 5 seconds to distal digits. Nails 84457 left foot nails 91574 right foot are elongated thickened mycotic crumbling [...] for foot nail care documented in this [id number] History of Present illness Narrative* Eladio Kingsley Jr., DPM - 05/19/2022 8:35 AM EDT Patient is [...] than 5 seconds to distal digits. Nails 70260 left foot nails [id number] right foot are elongated thickened mycotic crumbling [...] for foot nail care documented in this [id number] Telephone encounter Note* Telephone Encounter - Jagdish Soto MA - 02/17/2022 1:46 PM EDT Received refill request for metoprolol tart 25 mg bid 180/3. Pt's last OV was 05/09/21. Follow up isdue yearly thanks. [id number] Miscellaneous Notes* Telephone Encounter - Jagdish Soto MA - 02/17/2022 1:46 PM EDT Received refill request for metoprolol tart 25 mg bid 180/3. Pt's last OV was 05/09/21. Follow up isdue yearly thanks. documented in this [id number] History of Present illness Narrative* Eladio Kingsley [...] than 5 seconds to distal digits. Nails [id number] left foot nails 13344 right foot are elongated thickened mycotic crumbling [...] for foot nail care documented in this [id number] History of Present illness Narrative* On a scale of 0 to 10, the patient rates the pain at 1. * Pain Location: L thigh. * Pain Quality: Aching and Burning. * Timing/Duration: Intermittent and > 12 weeks duration. [facility] Work Phone: 1([phone] 859-132601-14-2022 History of Present illness Narrative* Eladio Kingsley [...] than 5 seconds to distal digits. Nails 68416 left foot nails 38468 right foot are elongated thickened mycotic crumbling [...] for foot nail care documented in this [id number] History of Present illness Narrative* On a scale of 0 to 10, the patient rates the pain at 1. * now and 8/10 at its worst. * Pain Location: lt front lateral thigh. * Pain Quality: Aching and Sharp. * Pain Radiation: in lt groin. * Sensory/ Motor: Pins and [place] and bilat lower extremitis from bilat claves [...] and patient is using relaxationwith positive response. -[facility] Work Phone: 1([phone]) 900-766909-11-2021 History of Present illness Narrative* Vijay Viveros MD - 07/02/2021 7:06 AM EDT (Incomplete)This note is in progress. Dictation on: 07/02/2021 7:08 AM by: VIJAY VIVEROS [[id number]] documented in this [id number] History of Present illness Narrative* Vijay Viveros [...] is going to do physical therapy at [facility] where he works. I will see him in 6 monthsfor a year checkup. documented in this [id number] History of Present illness Narrative* Eladio Kingsley Jr., DPM - 05/13/2021 8:15 AM EDT Patient is [...] than 5 seconds to distal digits. Nails 41741 left foot nails 39639 right foot are elongated thickened mycotic crumbling [...] for foot nail care documented in this [id number] History of Present illness NarrativeYealry w/PSA..Most recent [...] no recent sx...ED is chronic. No UTI [facility] Work Phone: 1(771) 336-796707-19-2021 History of Present illness Narrative* Heather Paredes MD - 05/09/2021 10:14 AM EDT Patient Name: Fawn Cameron MR #: [id number] Interventional Cardiology Heather Paredes MD, [facility] 05/09/21 Dear Don Barrera MD, Fawn Leigh Jessealinjorje was seen in follow up for : Problem Bradycardia Hyperlipidemia Coronary Artery Disease Involving [place] Coronary Artery of [place] Heart Without Angina Pectoris 2005-Occluded RCA mild diffuse other-- same in 2010 and did EECP 2019-stress ok pre op Assessment and Plan Coronary artery disease involving [place] coronary artery of [place] heart without angina pectoris Doing well, Medications [...] of abdominal wall History of cardiac cath NISQUALLY (hard of hearing) Hyperlipidemia Hypertension HANNAH (juvenile idiopathic arthritis), polyarthritis, 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 documented in this [id number] Miscellaneous Notes* Assessment & Plan Note - [...] EDT Associated Problem(s): Coronary artery disease involving [place] coronary artery of [place] heart without angina pectoris Doing well, Medications reviewed and recommended to continue asa Followup 1 year documented in this [id number] History of Present illness Narrative3 weeks with open area L ear, had treated 3 years ago with ENT, + [facility] Work Phone: 1(167) 565-652601-28-2015 History of Past illness Narrative* Problem Noted Date Resolved Date Other vitreous opacities - Both Eyes 11/18/2014 12/30/2015 Tear film insufficiency, unspecified - Both Eyes 11/18/2014 12/30/2015 Lens replaced by other means - Both Eyes 015 12/30/2015 S/P laser cataract surgery - Both Eyes 5 12/30/2015 documented as of this encounter (statuses as of 02/21/2023) [facility]01-[facility] History of Past illness Narrative* Problem Noted Date Diagnosed Date Resolved Date Other vitreous opacities - Both Eyes 11/18/2014 12/30/2015 Tear film insufficiency, uns pecified - Both Eyes 11/18/2014 12/30/2015 Lens replaced by other means - Both Eyes 11/18/2014 12/30/2015 S/P laser cataract surgery - Both Eyes 11/18/2014 12/30/2015 documented as of this encounter (statuses as of 08/30/2023) [facility] Diagnosis Callus of foot Corns and callosities OM (onychomycosis) Dermatophytosis of nail PAD (peripheral artery disease) (HCC) Unspecified peripheral vascular disease [facility] Coronary artery disease involving [place] coronary artery of [place] heart without angina pectoris- Primary [facility] Diagnosis Coronary artery disease involving [place] coronary artery of [place] heart without angina pectoris Mixed hyperlipidemia Bradycardia [...] vascular disease, unspecified [facility] Diagnosis Onychomycosis- Primary Dermatophytosis of nail Peripheral vascular disease, unspecified (HCC) Peripheral vascular disease, unspecified documented in this encounter [facility]* Diagnosis Epiretinal membrane (ERM) of left eye- Primary Nonexudative age-related macular degeneration, bilateral, early dry stage PVD (posterior vitreous detachment), bilateral Pseudophakia of both eyes Lens replaced by other means Essential hypertension Unspecified essential hypertension Hypercholesteremia Pure hypercholesterolemia Osteoarthritis, unspecified osteoarthritis type, unspecified site [facility]* Diagnosis Routine general medical examination at health care facility- Primary Routine general medical examination at a health care facility Benign prostatic hyperplasia, unspecified whether lower urinary tract symptoms present Primary hypertension Unspecified essential hypertension Peripheral arterial occlusive disease (CMS/HCC) Unspecified peripheral vascular disease Abdominal aneurysm (CMS/HCC) 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 Mixed hyperlipidemia 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) documented in this encounter [facility] Work Phone: Evaluation note* Diagnosis Chronic right shoulder pain- Primary Pain in joint, shoulder region documented in this encounter [facility] Work Phone: Evaluation note* Diagnosis Dizziness- Primary Dizziness and giddiness Vertigo Dizziness and giddiness documented in this encounter [facility] Work Phone: Evaluation note* Diagnosis Epiretinal membrane (ERM) of left eye- Primary Nonexudative age-related macular degeneration, bilateral, early dry stage PVD (posterior vitreous detachment), bilateral Pseudophakia of both eyes Lens replaced by other means Essential hypertension Unspecified essential hypertension Hypercholesteremia Pure hypercholesterolemia documented [facility]* Diagnosis Benign prostatic hyperplasia with lower urinary tract symptoms, symptom details unspecified Nocturia Erectile dysfunction, unspecified erectile dysfunction type Urinary frequency Nocturia associated with benign prostatic hyperplasia documented in this encounter [facility] Work Phone: Evaluation note* Diagnosis 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- Primary Esophageal reflux documented in this encounter [facility] Work Phone: Evaluation note* Diagnosis Urinary frequency- Primary Dysuria documented in this encounter [facility] Work Phone: [phone] note* Diagnosis Ingrown nail- Primary Ingrowing nail [...] esophagitis Esophageal reflux documented in this encounter [facility] Work Phone: [phone] note* Diagnosis Primary hypertension- Primary Unspecified essential [...] (CMS/HCC) Unspecified peripheral vascular disease Abdominal aneurysm ([facility]/HCC) 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 documented in this encounter [facility] Work Phone: [phone] note* Diagnosis 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 Esophageal reflux Hiatal hernia Diaphragmatic hernia without mention of obstruction or gangrene documented in this encounter [facility] Work Phone: [phone] note* Diagnosis 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- Primary Esophageal reflux Hiatal hernia Diaphragmatic hernia without mention of obstruction or gangrene documented in this encounter [facility] Work Phone: [phone] note* Diagnosis Dizziness- Primary Dizziness and giddiness Generalized weakness documented in this encounter [facility] Work Phone: [phone] note* Diagnosis Onychomycosis- Primary Dermatophytosis of nail PAD (peripheral artery disease) (HCC) Unspecified peripheral vascular disease [facility] Diagnosis Dizziness- Primary Dizziness and giddiness documented in this encounter [facility] Work Phone: [phone] note* Diagnosis Vestibular migraine- Primary [facility]* Diagnosis Onychomycosis- Primary Dermatophytosis of nail PAD (peripheral artery disease) (HCC) Unspecified peripheral vascular disease [facility] Diagnosis Nonexudative age-related macular degeneration, bilateral, [...] Anxiety state, unspecified [facility] Diagnosis Pain in right shoulder documented in this encounter [facility] Work Phone: Evaluation note* Diagnosis Dizziness- [...] or radiculitis, unspecified documented in this encounter [facility] Work Phone: Evaluation note* Diagnosis Dizziness- [...] (CMS-HCC) Unspecified peripheral vascular disease Abdominal aneurysm ([facility]-HCC) 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 Mixed hyperlipidemia Infrarenal abdominal aortic aneurysm (AAA) without rupture ([facility]) Chronic right shoulder pain- Primary Pain in [...] (CMS-HCC) Unspecified peripheral vascular disease Abdominal aneurysm ([facility]-HCC) 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 Dizziness- [...] mention of rupture Peripheral arterial occlusive disease ([facility]-HCC) Unspecified peripheral vascular disease 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 Work Phone: Evaluation note* Diagnosis Dizziness- [...] visual aura Palpitations documented in this encounter [facility] Work Phone: Evaluation note* Diagnosis Dizziness- [...] and giddiness Palpitations documented in this encounter 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 artery of [place] heart without angina pectoris Mixed hyperlipidemia Mixed hyperlipidemia Coronary artery disease involving [place] coronary artery of [place] heart without angina pectoris Coronary artery disease involving [place] coronary artery of [place] heart without angina pectoris Mixed hyperlipidemia Bradycardia Other specified cardiac dysrhythmias Onychomycosis- Primary Dermatophytosis of nail Peripheral vascular disease, unspecified (HCC) Peripheral vascular disease, unspecified [facility] Diagnosis Dizziness- Primary Dizziness and giddiness [...] region and thigh documented in this encounter [facility] Work Phone: Evaluation note* Diagnosis Dizziness- [...] without rupture (CMS-HCC) documented in this encounter 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 Work Phone: Evaluation note* Diagnosis Dizziness- [...] neoplasm of prostate documented in this encounter 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 artery of [place] heart without angina pectoris Mixed hyperlipidemia Mixed hyperlipidemia Coronary artery disease involving [place] coronary artery of [place] heart without angina pectoris Coronary artery disease involving [place] coronary artery of [place] heart without angina pectoris Mixed hyperlipidemia Bradycardia Other specified cardiac dysrhythmias Onychomycosis- Primary Dermatophytosis of nail Peripheral vascular disease, unspecified [facility] Diagnosis Coronary artery disease involving [place] coronary artery of [place] heart without angina pectoris- Primary Coronary artery disease involving [place] coronary artery of [place] heart without angina pectoris Coronary artery disease involving [place] coronary artery of [place] heart without angina pectoris Mixed hyperlipidemia Mixed hyperlipidemia Coronary artery disease involving [place] coronary artery of [place] heart without angina 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 Work Phone: Evaluation note* Diagnosis Dizziness- [...] on left side documented in this encounter [facility] Work Phone: Evaluation note* Diagnosis Dizziness- [...] pain- Primary Cervicalgia documented in this encounter [facility] Work Phone: Evaluation note* Diagnosis Dizziness- [...] Neck pain Cervicalgia documented in this encounter [facility] Work Phone: Evaluation note* Diagnosis Dizziness- [...] initial encounter (Multi) documented in this encounter [facility] Work Phone: Evaluation note* Diagnosis Dizziness- [...] by other means documented in this encounter [facility] Work Phone: History of Present illness [...] has some chronic LBP [facility] Work Phone: History of Present illness [...] of motion/joint mobility, strength and transfers. [facility] Work Phone: History of Present illness Narrative* Patient ID confirmed using Name and . * Patient wearing mask throughout session today d/t COVID-19 precautions. * Patient with good tolerance to treatment, no c/o increased pain/discomfort in clinic. [facility] Work Phone: History of Present illness Narrative* [...] to just completing them with L UE. [facility] Work [facility]: History of Present illness Narrative* Patient ID confirmed using Name and . * Patient wearing mask throughout session today d/t COVID-19 precautions. * Patient with good tolerance to treatment, no c/o increased pain/discomfort in clinic. Patient making progress with shoulder strength as indicated by increased resistance this session. [facility] Work Phone: History of Present illness NarrativePatient was identified by name and date. Reviewed HEP. He was able to progress reps with corestability exercises without c/o. Instructed in britney sabillon for self massage techniques to cont in HEP. He voiced good understanding.[facility] Work Phone: History of Present illness Narrative* [...] (less frequent than prior [facility] Work Phone: History of Present illness [...] medicine for lumbar radiculopathy [facility] Work Phone: History of Present illness [...] dizziness or lightheadedness. Normotensive in clinic today. [facility] [address] Work Phone: History of Present illness Narrative* [...] * Seen pain medicine for lumbar radiculopathy [facility] Work Phone: History of Present illness Narrative* [...] dizziness or lightheadedness. Normotensive in clinic today. [facility]qlr[facility] [address] Work Phone: Instructions* Name Dates Details Instructions not documented [facility] Work Phone: Reason for referral (narrative)* Consultation (Routine) - Authorized Specialty Diagnoses / Procedures Referred By Foster bland Referred To Contact Gastroenterology Diagnoses 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 Don Barrera MD [address] [place] [address] Referral ID Status Reason Start Date Expiration Date Visits Requested Visits Authorized [id number] Authorized Specialty Services Required 09/28/2023 09/27/2024 1 1 Scheduling Instructions Arrange for EGD with [facility] Work Phone: Reason for referral (narrative)* [...] Care - Established Don Barrera MD [address] [place] [address] Referral ID Status Reason Start Date Expiration Date V isits Requested Visits Authorized [id number] Authorized 11/05/2023 11/04/2024 1 1 * Consultation (Routine) - Authorized Specialty Diagnoses / Procedures Referred By Foster bland Referred To Contact Pain Medicine Diagnoses Osteoarthritis of spine with radiculopathy, lumbosacral region Don Barrera MD [address] [place] [address] Mack Galeana MD [address] [place] [address] Referral ID Status Reason Start Date Expiration Date Visits Requested Visits Authorized Authorized Consult and Treat 11/05/2023 11/04/[address] [facility] Work Phone: Rejoxz for visit Narrative* Initial Evaluation . lumbar DJD; S/P RTSR done Aug. 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 Work Phone: Reason for visit Narrative* Imaging (Emergency) - Authorized Specialty Diagnoses / Procedures Referred By Fosetr bland Referred To Contact Radiology Diagnoses Rib pain on left side Procedures XR ribs 2 views left w chest pa or ap Tanner Kingn Raymundo, COLLECTIONS CLERK-STEEL HANDLER [address] [place] [address] Phone: tel: fax: Referral ID Status Reason Start Date Expiration Date Visits Requested Visits Authorized [id number] Authorized Perform Procedure 04/10/2025 04/10/[address] [facility] Work Phone: Assessments Diagnosis Coronary artery disease invo lving [place] coronary artery of [place] heart without angina pectoris Diagnosis Arthritis of right hip- Primary 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 Diagnosis Coronary artery disease involving [place] coronary artery of [place] heart without angina pectoris Mixed hyperlipidemia Diagnosis Arthritis of left hip- Primary Diagnosis Status post left hip replacement Nontraumatic complete tear of left rotator cuff Diagnosis Nontraumatic complete tear of left rotator cuff Diagnosis Nontraumatic complete tear of left rotator cuff Rotator cuff arthropathy, left Diagnosis Rotator cuff arthropathy, left Diagnosis Coronary artery disease involving [place] coronary artery of [place] heart without angina pectoris Diagnosis Status post [...] on: 04/28/2019 12:38 PM by: VIJAY VIVEROS [[id number]] documented in this encounter* Heather Paredes MD - 05/19/2019 10:42 AM EDT Patient Name: Fawn Cameron MR #: [id number] Interventional Cardiology Heather Paredes MD, [facility] 05/19/19 Dear Don Barrera MD, Fawn Cameron was seen in follow up for : Problem Hyperlipidemia Coronary Artery Disease Involving [place] Coronary Artery of [place] Heart Without Angina Pectoris 2005-Occluded RCA mild diffuse other-- same in 2010 and did EECP Assessment and Plan Coronary artery disease involving [place] coronary artery of [place] heart without angina pectoris Good year no [...] disease) Chest pain GERD (gastroesophageal reflux disease) NISQUALLY (hard of hearing) Hyperlipidemia Hypertension HANNAH (juvenile [...] on: 07/14/2019 5:16 PM by: VIJAY VIVEROS [[id number]] documented in this encounter* Vijay Viveros MD [...] on: 12/15/2019 5:04 PM by: VIJAY VIVEROS [[id number]] documented in this encounter* Santiago Bates MD - 02/24/2020 11:26 AM EDT Dictation on: 02/24/2020 11:30 AM by: SANTIAGO BATES [[id number]] documented in this encounter* Santiago Bates MD - 04/27/2020 10:10 AM EDT Dictation on: 04/27/2020 10:11 AM by: SANTIAGO BATES [[id number]] documented in this encounter* Santiago Bates MD [...] on: 06/15/2020 11:37 AM by: SANTIAGO BATES [[id number]] documented in this encounter* Vijay Viveros MD - 08/21/2020 10:43 AM EDT Dictation on: 08/21/2020 10:45 AM by: VIJAY VIVEROS [[id number]] documented in this encounter* Santiago Bates MD - 10/12/2020 12:13 PM EST Dictation on: 10/12/2020 12:15 PM by: SANTIAGO BATES [[id number]] documented in this encounter* Ann Villagomez LISW - 09/11/2019 3:27 PM EST COMPLEX DISCHARGE Date: 09/11/2019 Time: 4:51 PM Patient Name: Fawn Cameron Date of : 1935 Sex: Male Patient discharged to home today with [facility]. Gloria at [facility] notified of patient discharge. No further discharge needs identified. Case closed. Discharge Plan Shared UM/CC and RN Living Arrangements: Spouse/significant other Support Systems: Spouse/significant other Functional Status: Independent Type of Residence: Private residence Prior to Admission Home Care Services: No Regulatory Documentation: BPCI Bundle Letter Regulatory Documentation Status: Certified(went over paper with patient ) [facility] Disposition D/C Disposition: Home Health Care Services Related to Current Admission?: Yes Agency/Destination: [facility] Home Care Needs : Home health care [...] home therapyon home nursing. D 09/11/2019 14:14 [id number] 09/11/2019 14:26 MCB/MODL * Tiffanie Kam, 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 INSTALLER - 09/11/2019 11:49 AM EST Physical Therapy [...] via walker Home Equipment: Wheeled Walker, Cane, Billet Header Additional Comments: Been using walker for past few nights to practice before sx, otherwise indep with no AD Prior Level of Function Level of [place]: Independent with ADLs and functional transfers Lives [...] on: 07/13/2020 9:36 AM by: SANTIAGO BATES [[id number]] documented in this encounter* Vijay Viveros MD [...] appointment. documented in this encounter Advance Directives No Advanced Directives Records FoundDocuments on File Type Date Recorded Patient Marketing Account Manager Expl anation Power of Veterinary Virologist Date Activated Date Inactivated Comments 09/10/2019 12:24 PM Latest Code Status on File Code Status Date Activated Date Inactivated Comments Full Code 09/10/2019 12:24 PM Documents on File Type Date Recorded Patient Marketing Account Manager Expl anation Advance Directives and Living Will Documents on File Type Date Recorded Patient Marketing Account Manager Expl anation Advance Directives and Living Will Documents on File Type Date Recorded Patient Marketing Account Manager Expl anation Advance Directives and Livin g Will 09/10/2019 8:11 AM Power of Veterinary Virologist Latest Code Status on File Code Status Date Activated Date Inactivated Comments Full Code 09/10/2019 12:24 PM Documents on File Type Date Recorded Patient Marketing Account Manager Expl anation Advance Directives and Livin g Will 09/10/2019 8:11 AM Power of Veterinary Virologist Documents on File Type Date Recorded Patient Marketing Account Manager Expl anation Advance Directives and Livin g Will 12/10/2019 9:11 AM Power of Veterinary Virologist Documents on File Type Date Recorded Patient Marketing Account Manager Expl anation Advance Directives and Livin g Will 12/10/2019 9:11 AM Power of Veterinary Virologist Documents on File Type Date Recorded Patient Marketing Account Manager Expl anation Advance Directives and Livin g Will 03/08/2020 12:00 AM Power of Veterinary Virologist Documents on File Type Date Recorded Patient Marketing Account Manager Expl anation Advance Directives and Livin g Will 03/08/2020 12:00 AM Power of Veterinary Virologist Documents on File Type Date Recorded Patient Marketing Account Manager Expl anation Advance Directives and Livin g Will 09/10/2019 8:11 AM Documents on File Type Date Recorded Patient Marketing Account Manager Expl anation Advance Directives and Livin g Will 08/19/2019 7:32 AM Documents on File Type Date Recorded Patient Marketing Account Manager Expl anation Power of Veterinary Virologist Advance Directives and Livin g Will 03/08/2020 12:00 AM Documents on File Type Date Recorded Patient Marketing Account Manager Expl anation Power of Veterinary Virologist Advance Directives and Livin g Will 03/08/2020 12:00 AM Latest Code Status on File Date Activated Date Inactivated Comments 09/10/2019 12:24 PM Latest Code Status on File Code Status Date Activated Date Inactivated Comments Full Code 09/10/2019 12:24 PM Documents on File Type Date Recorded Patient Marketing Account Manager Expl anation Living Will 04/20/2016 Documents on File Type Date Recorded Patient Marketing Account Manager Expl anation Living Will 04/20/2016 Date Activated [...] Instructions not documented Summary Purpose Family History No Family History Records Found Mother Name Dates Details Family history of [...] Arthritis of left [place] [address] Status Reason Specialty Diagnoses / Procedures Referre d By Contact Referred To Contact Closed Radiology Diagnoses Nontraumatic complete tear of left rotator cuff Procedures MR Shoulder Left Without Contrast [place] [address] Status Reason Specialty Diagnoses / Procedures Referred By Contact Referred To Contact Authorized Home Health Services Diagnoses Status post total replacement of left hip Vijay Viveros MD [address] [place] [address] Status Reason Specialty Diagnoses / Procedures Referre d By Contact Referred To Contact Closed Radiology Diagnoses Arthritis of left hip Procedures CT Hip Left Without Contrast Vijay Viveros MD [address] [place] [address] Status Reason Specialty Diagnoses / Procedures Referred By Contact Referred To Contact Authorized Cardiology Diagnoses Coronary artery disease involving united [place] coronary artery of united [place] heart without angina pectoris Procedures ECG 12 Lead Heather Paredes MD [address] [place] [address] Specialty Diagnoses / Procedures Referred By Contac t Referred To Contact Cardiology Diagnoses Infrarenal abdominal aortic aneurysm (AAA) without rupture ([facility]) Procedures Vascular US abdominal aorta anuerysm AAA screening Don Barrera MD [address] [place] [address] Referral ID Status Reason Start Date Expiration Date Visits Requested Visits Authorized [id number] Authorized Perform Procedure 05/04/2023 10/31/2023 1 1 Specialty Diagnoses / Procedures Referred By Contac t Referred To Contact Orthopaedic Surgery / Orthopedic Surgery Diagnoses Chronic right shoulder pain Procedures Joint Injection Large/Arthrocentesis: R subacromial bursa Don Barrera MD [address] [place] [address] Referral ID Status Reason Start Date Expiration Date V isits Requested Visits Authorized [id number] Authorized 05/31/2023 11/27/2023 1 1 Specialty Diagnoses / Procedures Referred By Contac t Referred To Contact Radiology Diagnoses 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 Hiatal hernia Procedures FL GI esophagram Daysi Arenas, DO [address] [facility] [address] [phone] Referral ID Status Reason Start Date Expiration Date Visits Requested Visits Authorized [id number] Pending Review Perform Procedure 11/01/2023 10/31/2024 1 1 Specialty Diagnoses / Procedures Referred By Contac t Referred To Contact Radiology Diagnoses Pain in right shoulder Procedures XR shoulder right 2+ views Mack Galeana MD [address] [place] [address] Referral ID Status Reason Start Date Expiration Date Visits Requested Visits Authorized [id number] Authorized Perform Procedure 03/27/2024 03/27/2025 1 1 Specialty Diagnoses / Procedures Referred By Contac t Referred To Contact Radiology Diagnoses Radiculopathy, lumbar region Procedures MR pelvis wo IV contrast Mack Galeana MD [address] [place] [address] Referral ID Status Reason Start Date Expiration Date Visits Requested Visits Authorized [id number] Authorized Perform Procedure 07/17/2024 07/17/2025 1 1 Specialty Diagnoses / Procedures Referred By Contac t Referred To Contact Radiology Diagnoses Radiculopathy, lumbar region Procedures MR lumbar spine wo IV contrast Mack Galeana MD [address] [place] [address] Referral ID Status Reason Start Date Expiration Date Visits Requested Visits Authorized [id number] Authorized Perform Procedure 07/17/2024 07/17/2025 1 1 Specialty Diagnoses / Procedures Referred By Contac t Referred To Contact Cardiology Diagnoses Athscl heart disease of [place] coronary artery w/o ang pctrs TIA (transient ischemic attack) Benign hypertensive heart disease without congestive heart failure Procedures Transthoracic Echo (TTE) Complete AK ECHO TTHRC R-T 2D W/WOM-MODE COMPL SPEC&COLR D Otoniel Salcedo MD [address], [facility] [address] [place] [address] Referral ID Status Reason Start Date Expiration Date Visits Requested Visits Authorized [id number] Authorized Perform Procedure 07/03/2024 07/03/2025 1 1 Specialty Diagnoses / Procedures Referred By Contac t Referred To Contact Radiology Diagnoses Left hip pain Procedures XR hip left with pelvis when performed 2 or 3 views Don Barrera MD [address] [place] [address] Referral ID Status Reason Start Date Expiration Date Visits Requested Visits Authorized [id number] Authorized Perform Procedure 06/12/2024 06/12/2025 1 1 Discharge Instructions * Attachments The following attachments cannot be sent through Care Everywhere. * Hip Replacement: Total: General Info (Gambian) * Indwelling Urinary Catheter Care: General Info (Gambian) documented in this encounter Chief Complaint 6 [...] LESION6 MO F/U REV LABSpt here to [facility] care. pt was an [facility] pt. no complaints6 MO F/U REV LABS6 MO F/U. Rev Labs.CAD Medications Administered Section Active Administered Medications - up to 3 most recent administrations Medication Order MAR Action Action Date Dose Rate Site fluorescein-benoxinate 0.25-0.4 % 1 Drop (FLURESS) 1 Drop, BOTH EYES, DIRECTED, Starting on Sun02/21/23 at 0900, Until Sun02/21/23 at 2058, Administer for applanation tonometry. In the event of a Fluress shortage, administer [place]iley-Fluor 1 drop into both eyes as directed [...] DIRECTED, Starting on Sun02/21/23 at 0900, Until Sun02/21/232058, Administer for dilation Given 02/21/2023 9:00 AM EDT 1 Drop Inactive Administered Medications - up to 3 most recent administrations Medication Order MAR Action Action Date Dose Rate Site fluorescein-benoxinate 0.3-0.4 % 1 Drop (FLURESS) 1 Drop, BOTH EYES, DIRECTED, Starting on Sun08/29/23 at 1000, Until Sun08/29/23 at 2158, Administer for applanation tonometry. In the event of a Fluress shortage, administer [place]-Fluor 1 drop into both eyes as directed [...] content) Associated Problem(s): Coronary artery disease involving united [place] coronary artery of [place] heart without angina pectoris Patient has been doing very well since being evaluated in the emergency room, without any discomforts that he had previously. 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 We will continue watching clinically and no further workup is needed at this point timein this encounter Associated Problem(s): Hyperlipidemia Per PCP Associated Problem(s): Coronary artery disease involving united [place] coronary artery of [place] heart without angina pectoris Good year no [...] PACU without intraoperative complication. D 09/10/2019 13:49 [id number] 09/10/2019 14:24 MCB/MODL Brief Post Operative Note Patient Name: Fawn Cameron : 1935 (84 y.o.) Date of Service: 09/10/2019 CSN: [id number] Procedure(s): Left Total Hip Replacement Robotic Pre-Operative Diagnoses: * left hip arthritis Post-Operative Diagnoses: * Arthritis of left hip [M16.12] Surgeon(s) and Role: * Vijay Viveros MD - Primary Anesthesiologist: Gracie Valencia MD Anesthesiologist Real Estate Leasing Manager: EDUARD Craft Control Room Helper: Lincoln Burt RN; Madiha Cummins RN Pocket Maker: Ijeoma Ruvalcaba, TECHNOLOGIST Scrub Person: Lea Pantoja RN WAIT STAFF: Madina Martin RN Operative findings: djd Intra and immediate post-operative complications: none Type of anesthesia used: Spinal Estimated blood loss: 200 mL Estimated urine output: 0 mL Specimen(s): ID Type Source Tests Collected by Time Destination A : Bone Femoral Head, Left TISSUE EXAM Vijay Viveros MD 09/10/2019 1044 Implant(s): Implant Name Type Inv. Item Serial No. Respiratory Coordinator Lot No. LRB No. Used Action CUP 54MM CLUSTER MILIAN TRIDENT PSL - [id number] CUP 54MM CLUSTER MILIAN TRIDENT PSL IZABEL OR [id number] Left 1 Implanted INSERT 36MM 10DEG F COMP X3 TRIDENT - [id number] INSERT 36MM 10DEG F COMP X3 TRIDENT IZABEL OR [id number] Left 1 Implanted STEM 127DEG SZ6 FEM ACCOLADE II - [id number] STEM 127DEG SZ6 FEM ACCOLADE II IZABEL OR [id number] Left 1 Implanted HEAD 36MM 5MM V40 FEM LFIT ANATOMIC - [id number] HEAD 36MM 5MM V40 FEM LFIT ANATOMIC [...] Shoulder Left Without Contrast Vijay Viveros MD [address] [place], [place] [id number] Reason Comments Follow-up Status Reason Specialty Diagnoses / Procedures Referred By Contact Referred To Contact Closed Radiology Diagnoses Coronary artery disease involving united [place] coronary artery of united [place] heart without angina pectoris Procedures NM Myocardial Perfusion Study Single - Stress Only NM Myocardial Perfusion Multiple SPECT Heather Paredes MD [address] [place] [address] Reason Comments Follow-up Suture / Staple Removal Status Reason Specialty Diagnoses / Procedures Referre d By Contact Referred To Contact Diagnoses Arthritis of left hip Arthritis of left hip [M16.12] Procedures AK TOTAL HIP ARTHROPLASTY Left total hip replacement [76936] Vijay Viveros MD [address] [place] [address] Status Reason Specialty Diagnoses / Procedures Referre d By Contact Referred To Contact Closed Radiology Diagnoses Arthritis of left hip Procedures CT Hip Left Without Contrast Vijay Viveros MD [address] [place] [id number] Reason Comments Follow-up Suture / Staple Removal [...] aily Reason Comments Medicare Annual Wellness Visit Sulaiman t 6 MO LABS Reason Comments wants [...] X 2 months Breads, s calloped potatoes, dipper and drier foods. Specialty Diagnoses / Procedures Referred By Foster bland Referred To Contact Gastroenterology Diagnoses 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 Don Barrera MD [address] [place] [address] Referral ID Status Reason Start Date Expiration Date Visits Requested Visits Authorized [id number] Authorized Specialty Services Required 09/28/2023 09/27/2024 1 1 Reason Comments 6 mo labs Specialty Diagnoses / Procedures Referred By Foster bland Referred To Contact Radiology Diagnoses 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 Hiatal hernia Procedures FL GI esophagram Daysi Arenas, DO [address] [facility], [facility] [address] [place] [address] Referral ID Status Reason Start Date Expiration Date Visits Requested Visits Authorized [id number] Pending Review Perform Procedure 11/01/2023 10/31/2024 1 [...] patient. 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 DLS by Dr Barrera was 06/03/2024. Specialty Diagnoses / Procedures Referred By Foster bland Referred To Contact Radiology Diagnoses Radiculopathy, lumbar region Procedures MR pelvis wo IV contrast Mack Galeana MD [address] [phone] Referral ID Status Reason Start Date Expiration Date Visits Requested Visits Authorized [id number] Authorized Perform Procedure 07/17/2024 07/17/2025 1 1 Specialty Diagnoses / Procedures Referred By Foster bland Referred To Contact Radiology Diagnoses Radiculopathy, lumbar region Procedures MR lumbar spine wo IV contrast Mack Galaena MD [address] [place] [address] Referral ID Status Reason Start Date Expiration Date Visits Requested Visits Authorized [id number] Authorized Perform Procedure 07/17/2024 07/17/2025 1 1 Specialty Diagnoses / Procedures Referred By Contac t Referred To Contact Cardiology Diagnoses Athscl heart disease of united [place] coronary artery w/o ang pctrs TIA (transient ischemic attack) Benign hypertensive heart disease without congestive heart failure Procedures Transthoracic Echo (TTE) Complete AK ECHO TTHRC R-T 2D W/WOM-MODE COMPL SPEC&COLR D Otoniel Salcedo MD [address] [facility], [facility] [address] [place] [address] Referral ID Status Reason Start Date Expiration Date Visits Requested Visits Authorized [id number] Authorized Perform Procedure 07/03/2024 07/03/2025 1 1 Reason Comments Dizzy,shakey Specialty Diagnoses / Procedures Referred By Contac t Referred To Contact Radiology Diagnoses Left hip pain Procedures XR hip left with pelvis when performed 2 or 3 views Don Barrera MD [address] [place] [address] Referral ID Status Reason Start Date Expiration Date Visits Requested Visits Authorized [id number] Authorized Perform Procedure 06/12/2024 06/12/2025 1 1 Specialty Diagnoses / Procedures Referred By Contac t Referred To Contact Cardiology Diagnoses Abdominal aneurysm (CMS-HCC) Infrarenal abdominal aortic aneurysm (AAA) without rupture ([facility]) Procedures Vascular US aorta iliac duplex complete Vascular US aorta iliac duplex limited Don Barrera MD [address] [phone] Referral ID Status Reason Start Date Expiration Date Visits Requested Visits Authorized [id number] Pending Review Perform Procedure 06/12/2024 06/12/2025 1 [...] Expiration Date V isits Requested Visits Authorized [id number] Authorized 05/19/2024 05/19/2025 1 1 Reason Comments [...] hemorrhage (Multi) Multi Trauma Procedures [place] [address] [place] [address] Phone: tel: fax: [facility] [address] [place] [address] Phone: tel: fax: Referral ID Status Reason Start Date Expiration Date Visits Re quested Visits Authorized [id number] 1 1 (unrecognized sect ion and content) No Status Records FoundNo Status Records FoundNo Status Records FoundNo Status Records FoundNo Status Records FoundNo Status Records FoundNo Status Records FoundNo Status Records FoundNo Status Records FoundNo Status Records FoundNo Status Records FoundNo Status Records FoundNo Status Records FoundNo Status Records Found INFORMATION SOURCE (unrecogn ized section and content) DATE CREATED AUTHOR 05/25/2019 [facility] DATE CREATED AUTHOR AUTHOR'S ORGANIZ ATION 09/26/2019 [facility] DATE CREATED AUTHOR AUTHOR'S ORGANIZ ATION 03/07/2020 [facility] DATE CREATED AUTHOR AUTHOR'S ORGANIZ ATION 05/13/2023 [facility] DATE CREATED AUTHOR AUTHOR'S ORGANIZ ATION 06/22/2023 [facility] DATE CREATED AUTHOR AUTHOR'S ORGANIZ ATION 03/12/2025 [facility] DATE CREATED AUTHOR AUTHOR'S ORGANIZ ATION [facility]/[address] [facility] DATE CREATED AUTHOR AUTHOR'S ORGANIZ ATION 05/04/2025 [facility] DATE CREATED AUTHOR AUTHOR'S ORGANIZ ATION 05/11/2025 [facility] DATE CREATED AUTHOR AUTHOR'S ORGANIZ ATION 05/12/2025 [facility] DATE CREATED AUTHOR AUTHOR'S ORGANIZ ATION 05/14/2025 [facility] DATE CREATED AUTHOR AUTHOR'S ORGANIZ ATION [facility] DATE CREATED AUTHOR AUTHOR'S ORGANIZ ATION 05/24/2025 [facility] DATE CREATED AUTHOR AUTHOR'S ORGANIZ ATION 05/25/2025 [facility] Visit Details Home Health Visit - Care Blake n (unrecognized section and content) Visit Type -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 INSTALLER Routine Visi t Discipline -Physical Therapy Problems [...] scheduled/documented in this visit Abnormal Findings Disciplines: Nursing Home, Physical Therapy, Occupational Therapy, Speech Therapy, Home [...] scheduled/documented in this visit Pain Management Disciplines: Nursing Home, Physical Therapy, Occupational Therapy, Speech Therapy, Home Health Aide, Medical Social Work, Spiritual Care, Art Therapy, Massage Therapy, Registered Dietitian, Student - Medical Social Work 09/12/2019 Active 1 goal linked to scheduled/documented intervention 1 goal intervention scheduled/documented in this visit Risk of Falls Disciplines: Nursing Home, Physical Therapy, Occupational Therapy, Speech Therapy, Home [...] ambulating in home with using FWW and OR at all times. Challenged patient with stepping [...] Type -SN HH Routine Vi sit Discipline -Nursing Home Problems Problem Start Date Status Goals Interventions Abnormal Findings Disciplines: Nursing Home, Physical Therapy, Occupational Therapy, Speech Therapy, Home Health Aide, Medical Social Work, Spiritual Care, Art Therapy, Massage Therapy, Registered Dietitian, Student - Medical Social Work 09/12/2019 Active 1 goal linked to scheduled/documented intervention 1 goal intervention scheduled/documented in this visit Bleeding Precautions Disciplines: Nursing Home 09/12/2019 Active - 1 problem intervention scheduled/documented in this visit Code Status Disciplines: Nursing Home, Physical Therapy, Occupational Therapy, Speech Therapy, Home Health Aide, Medical Social Work, Spiritual Care, Art Therapy, Massage Therapy, Registered Dietitian, Student - Medical Social Work 09/12/2019 Active 1 goal linked to scheduled/documented intervention 1 goal intervention scheduled/documented in this visit Home Medication Management Disciplines: Nursing Home 09/12/2019 Active 1 goal linked to scheduled/documented intervention 4 goal interventions scheduled/documented in this visit Infection Prevention - Catheter Disciplines: Nursing Home 09/12/2019 Active 1 goal linked to scheduled/documented intervention 1 goal intervention scheduled/documented in this visit Learning/Teaching Needs - Catheter Disciplines: Nursing Home 09/12/2019 Active 1 goal linked to scheduled/documented intervention 1 goal intervention scheduled/documented in this visit Learning/Teaching Needs - Joint Replacement Disciplines: Nursing Home 09/12/2019 Active 1 goal linked to scheduled/documented intervention 6 goal interventions scheduled/documented in this visit Pain Management Disciplines: Nursing Home, Physical Therapy, Occupational Therapy, Speech Therapy, Home Health Aide, Medical Social Work, Spiritual Care, Art Therapy, Massage Therapy, Registered Dietitian, Student - Medical Social Work 09/12/2019 Active 1 goal linked to scheduled/documented intervention 1 goal intervention scheduled/documented in this visit Prevention of Skin Breakdown - Pressure Ulcer Disciplines: Nursing Home, Physical Therapy, Occupational Therapy, Speech Therapy, Home Health Aide, Medical Social Work, Spiritual Care, Art Therapy, Massage Therapy, Registered Dietitian, Student - Medical Social Work 09/12/2019 Active 1 goal linked to scheduled/documented intervention 1 goal intervention scheduled/documented in this visit Risk of Falls Disciplines: Nursing Home, Physical Therapy, Occupational Therapy, Speech Therapy, Home Health Aide, Medical Social Work, Spiritual Care, Art Therapy, Massage Therapy, Registered Dietitian, Student - Medical Social Work 09/12/2019 Active 1 goal linked to scheduled/documented intervention 1 goal intervention scheduled/documented in this visit Skilled Assessment Disciplines: Nursing Home 09/12/2019 Active 1 goal linked to scheduled/documented [...] Problem:Pain Management Goal:Pain management goal Completed Instruct { PATIENT CAREGIVER:[id number]} on medications and alternative strategies to relieve pain. Instruct prevention of pressure ulcers Problem:Prevention of Skin Breakdown - Pressure Ulcer Goal:HH/HSPC Goal Completed Instruct on fall prevention Problem:Risk of Falls Goal:Balance/Fall risk goal Completed Obtain pulse oximetry Problem:Skilled Assessment Goal:Rehospitalizati on joint replacement goal Completed SN/ACCOUNT SOLUTIONS ANALYST obtain vital signs Problem:Skilled Assessment Goal:Rehospitalizati on joint replacement goal Completed Teaching - disease process Problem:Skilled Assessment Goal:Rehospitalizati on joint replacement goal Completed Skilled observation and assessment general assessment Problem:Skilled Assessment Goal:Rehospitalizati on joint replacement goal Completed Visit Details Visit Type -SN HH OASIS Star t of Care Discipline -Nursing Home Interventions Intervention Associated Problem/Goal Status Variance Visit [...] Assessment Goal:Rehospitalizatio n joint replacement goal Completed SN/ACCOUNT SOLUTIONS ANALYST obtain vital signs Problem:Skilled Assessment Goal:Rehospitalizatio n [...] ambulating in home with using FWW and OR at all times. Challenged patient with stepping [...] Date Status Goals Interventions Abnormal Findings Disciplines: Nursing Home, Physical Therapy, Occupational Therapy, Speech Therapy, Home Health Aide, Medical Social Work, Spiritual Care, Art Therapy, Massage Therapy, Registered Dietitian, Student - Medical Social Work 09/12/2019 Active 1 goal linked to scheduled/documente d intervention 1 goal intervention scheduled/documented in this visit Bleeding Precautions Disciplines: Nursing Home 09/12/2019 Active - 1 problem intervention scheduled/documented in this visit Code Status Disciplines: Nursing Home, Physical Therapy, Occupational Therapy, Speech Therapy, Home Health Aide, Medical Social Work, Spiritual Care, Art Therapy, Massage Therapy, Registered Dietitian, Student - Medical Social Work 09/12/2019 Active 1 goal linked to scheduled/documente d intervention 1 goal intervention scheduled/documented in this visit Home Medication Management Disciplines: Nursing Home 09/12/2019 Active 1 goal linked to scheduled/documente d intervention 4 goal interventions scheduled/documented in this visit Infection Prevention - Catheter Disciplines: Nursing Home 09/12/2019 Resolved on 09/19/2019 1 goal linked to scheduled/documente d intervention 1 goal intervention scheduled/documented in this visit Learning/Teaching Needs - Catheter Disciplines: Nursing Home 09/12/2019 Resolved on 09/19/2019 1 goal linked to scheduled/documente d intervention 1 goal intervention scheduled/documented in this visit Learning/Teaching Needs - Joint Replacement Disciplines: Nursing Home 09/12/2019 Active 1 goal linked to scheduled/documente d intervention 6 goal interventions scheduled/documented in this visit Pain Management Disciplines: Nursing Home, Physical Therapy, Occupational Therapy, Speech Therapy, Home Health Aide, Medical Social Work, Spiritual Care, Art Therapy, Massage Therapy, Registered Dietitian, Student - Medical Social Work 09/12/2019 Active 1 goal linked to scheduled/documente d intervention 1 goal intervention scheduled/documented in this visit Prevention of Skin Breakdown - Pressure Ulcer Disciplines: Nursing Home, Physical Therapy, Occupational Therapy, Speech Therapy, Home Health Aide, Medical Social Work, Spiritual Care, Art Therapy, Massage Therapy, Registered Dietitian, Student - Medical Social Work 09/12/2019 Active 1 goal linked to scheduled/documente d intervention 1 goal intervention scheduled/documented in this visit Risk of Falls Disciplines: Nursing Home, Physical Therapy, Occupational Therapy, Speech Therapy, Home Health Aide, Medical Social Work, Spiritual Care, Art Therapy, Massage Therapy, Registered Dietitian, Student - Medical Social Work 09/12/2019 Active 1 goal linked to scheduled/documente d intervention 1 goal intervention scheduled/documented in this visit Skilled Assessment Disciplines: Nursing Home 09/12/2019 Active 1 goal linked to scheduled/documente [...] Assessment Goal:Rehospitalizati on joint replacement goal Completed SN/ACCOUNT SOLUTIONS ANALYST obtain vital signs Problem:Skilled Assessment Goal:Rehospitalizati on joint replacement goal Completed Teaching - disease process Problem:Skilled Assessment Goal:Rehospitalizati on joint replacement goal Completed Skilled observation and assessment general assessment Problem:Skilled Assessment Goal:Rehospitalizati on joint replacement goal Completed Visit Details Visit Type -SN HH OASIS Disc harge Discipline -Nursing Home Problems Problem Start Date Status Goals Interventions Abnormal Findings Disciplines: Nursing Home, Physical Therapy, Occupational Therapy, Speech Therapy, Home Health Aide, Medical Social Work, Spiritual Care, Art Therapy, Massage Therapy, Registered Dietitian, Student - Medical Social Work 09/12/2019 Resolved on 09/25/2019 1 goal linked to scheduled/documente d intervention 1 goal intervention scheduled/documented in this visit Bleeding Precautions Disciplines: Nursing Home 09/12/2019 Resolved on 09/25/2019 1 goal linked to scheduled/documente d intervention 1 problem intervention scheduled/documented in this visit Code Status Disciplines: Nursing Home, Physical Therapy, Occupational Therapy, Speech Therapy, Home Health Aide, Medical Social Work, Spiritual Care, Art Therapy, Massage Therapy, Registered Dietitian, Student - Medical Social Work 09/12/2019 Resolved on 09/25/2019 1 goal linked to scheduled/documente d intervention 1 goal intervention scheduled/documented in this visit Home Medication Management Disciplines: Nursing Home 09/12/2019 Resolved on 09/25/2019 1 goal linked to scheduled/documente d intervention 4 goal interventions scheduled/documented in this visit Learning/Teaching Needs - Joint Replacement Disciplines: Nursing Home 09/12/2019 Resolved on 09/25/2019 1 goal linked to scheduled/documente d intervention 6 goal interventions scheduled/documented in this visit Pain Management Disciplines: Nursing Home, Physical Therapy, Occupational Therapy, Speech Therapy, Home Health Aide, Medical Social Work, Spiritual Care, Art Therapy, Massage Therapy, Registered Dietitian, Student - Medical Social Work 09/12/2019 Resolved on 09/25/2019 1 goal linked to scheduled/documente d intervention 1 goal intervention scheduled/documented in this visit Prevention of Skin Breakdown - Pressure Ulcer Disciplines: Nursing Home, Physical Therapy, Occupational Therapy, Speech Therapy, Home Health Aide, Medical Social Work, Spiritual Care, Art Therapy, Massage Therapy, Registered Dietitian, Student - Medical Social Work 09/12/2019 Resolved on 09/25/2019 1 goal linked to scheduled/documente d intervention 1 goal intervention scheduled/documented in this visit Risk of Falls Disciplines: Nursing Home, Physical Therapy, Occupational Therapy, Speech Therapy, Home Health Aide, Medical Social Work, Spiritual Care, Art Therapy, Massage Therapy, Registered Dietitian, Student - Medical Social Work 09/12/2019 Resolved on 09/25/2019 1 goal linked to scheduled/documente d intervention 1 goal intervention scheduled/documented in this visit Skilled Assessment Disciplines: Nursing Home 09/12/2019 Resolved on 09/25/2019 1 goal linked [...] Pain management goal Pain Management Met No HH/HSPC Goal Prevention of Skin Breakdown [...] Assessment Goal:Rehospitalizati on joint replacement goal Completed SN/ACCOUNT SOLUTIONS ANALYST obtain vital signs Problem:Skilled Assessment Goal:Rehospitalizati on [...] scheduled/documented in this visit Abnormal Findings Disciplines: Nursing Home, Physical Therapy, Occupational Therapy, Speech Therapy, Home [...] scheduled/documented in this visit Pain Management Disciplines: Nursing Home, Physical Therapy, Occupational Therapy, Speech Therapy, Home Health Aide, Medical Social Work, Spiritual Care, Art Therapy, Massage Therapy, Registered Dietitian, Student - Medical Social Work 09/12/2019 Resolved on 09/25/2019 1 goal linked to scheduled/documente d intervention 1 goal intervention scheduled/documented in this visit Risk of Falls Disciplines: Nursing Home, Physical Therapy, Occupational Therapy, Speech Therapy, Home [...] ambulating in home with using FWW and OR at all times. Challenged patient with stepping [...] Date Status Goals Interventions Abnormal Findings Disciplines: Nursing Home, Physical Therapy, Occupational Therapy, Speech Therapy, Home Health Aide, Medical Social Work, Spiritual Care, Art Therapy, Massage Therapy, Registered Dietitian, Student - Medical Social Work 09/12/2019 Active 1 goal linked to scheduled/documented intervention 1 goal intervention scheduled/documented in this visit Bleeding Precautions Disciplines: Nursing Home 09/12/2019 Active - 1 problem intervention scheduled/documented in this visit Code Status Disciplines: Nursing Home, Physical Therapy, Occupational Therapy, Speech Therapy, Home Health Aide, Medical Social Work, Spiritual Care, Art Therapy, Massage Therapy, Registered Dietitian, Student - Medical Social Work 09/12/2019 Active 1 goal linked to scheduled/documented intervention 1 goal intervention scheduled/documented in this visit Home Medication Management Disciplines: Nursing Home 09/12/2019 Active 1 goal linked to scheduled/documented intervention 4 goal interventions scheduled/documented in this visit Learning/Teaching Needs - Joint Replacement Disciplines: Nursing Home 09/12/2019 Active 1 goal linked to scheduled/documented intervention 6 goal interventions scheduled/documented in this visit Pain Management Disciplines: Nursing Home, Physical Therapy, Occupational Therapy, Speech Therapy, Home Health Aide, Medical Social Work, Spiritual Care, Art Therapy, Massage Therapy, Registered Dietitian, Student - Medical Social Work 09/12/2019 Active 1 goal linked to scheduled/documented intervention 1 goal intervention scheduled/documented in this visit Prevention of Skin Breakdown - Pressure Ulcer Disciplines: Nursing Home, Physical Therapy, Occupational Therapy, Speech Therapy, Home Health Aide, Medical Social Work, Spiritual Care, Art Therapy, Massage Therapy, Registered Dietitian, Student - Medical Social Work 09/12/2019 Active 1 goal linked to scheduled/documented intervention 1 goal intervention scheduled/documented in this visit Risk of Falls Disciplines: Nursing Home, Physical Therapy, Occupational Therapy, Speech Therapy, Home Health Aide, Medical Social Work, Spiritual Care, Art Therapy, Massage Therapy, Registered Dietitian, Student - Medical Social Work 09/12/2019 Active 1 goal linked to scheduled/documented intervention 1 goal intervention scheduled/documented in this visit Skilled Assessment Disciplines: Nursing Home 09/12/2019 Active 1 goal linked to scheduled/documented [...] address impairments and functional limitations s/p L GABO Surgery Date: 09/10/19 Returned Home: 09/11/19 Ongoing [...] driving, independent with ADL/ IADLs, volunteers at [facility]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 He has seen his web marketing coordinator, who has given him the all clear [...] no listed narcotics. documented in this encounter Sharmin Molly, OT - 09/11/2019 9:00 AM SUSANNERosaliaSummer urban, PT - 09/10/2019 5:23 PM ESTGlass, Jaci Aidee, PRODUCE CLERK - 09/10/2019 4:30 PM EST Consult Notes [...] roles. The patient's home setup is a welt butter hand and family/caregiver support is a welt butter hand for return to prior level of function. The patient's education level is a welt butter hand, compliance is a welt butter hand and awareness of own capacity and performance is a welt butter hand to return to prior level of function. [...] distracted environment Hearing Status: WFL Social Interaction: WFL UE Assessment B UE AROM limited in [...] via walker Home Equipment: Wheeled Walker, Cane, Billet Header Additional Comments: Been using walker for past few nights to practice before sx, otherwise indep with no AD Prior Level of Function Level of Fallon: Independent with ADLs and functional transfers Lives With: Spouse Receives Help From: Family ADL Assistance: Independent Comments: Spouse performs the homemaking and they hire out yard work. Ambulates without a device. Past Medical History: Diagnosis Date CAD (coronary artery disease) Chest pain Complication of anesthesia slow to wake up GERD (gastroesophageal reflux disease) History of cardiac cath NISQUALLY (hard of hearing) Hyperlipidemia Hypertension HANNAH (juvenile [...] able to doff the L sock with forms analysis manager, don same with sock aide, with extra time. Light min A to don shoe; dependent for tying. He was able to doff/don items on the R foot without use of AE. Patient educated on use of forms analysis manager for donning underwear/pants with forms analysis manager for greater ease on the L; was then able to step into the R while seated. Patient pleased with results of AE use. Request for forms analysis manager and sock aid faxed to [facility] and [...] sit EOB Transfers Sit to Stand: Min Forest Economics Professor: Wheeled walker Skilled Intervention: Vc for hand [...] AD Prior Level of Function Level of Fallon: Independent with ADLs and functional transfers Lives With: Spouse Receives Help From: Family Comments: takes care of all housework Past Medical History: Diagnosis Date CAD (coronary artery disease) Chest pain Complication of anesthesia slow to wake up GERD (gastroesophageal reflux disease) History of cardiac cath NISQUALLY (hard of hearing) Hyperlipidemia Hypertension HANNAH (juvenile [...] return home at discharge with services from [facility] and a referral was made at that time. Care management solder technician met with the patient today post surgery and confirmed the plan remains for the patient to return home at discharge with services from [facility] The patient lives in a 2 story home with 5 steps and a handrail on the right to enter. Their bedroom, bathroom, and laundry are on the first floor. The bathroom has a walk-in shower, with grab bars and a seat. The commode is handicap accessible. Notify home health care completed. Patient to return home with [facility] care at discharge. RAFAL Jiang-S Discharge Plan Shared UM/CC and RN Living Arrangements: Spouse/significant other Support Systems: Spouse/significant other Functional Status: Independent Type of Residence: Private residence Prior to Admission Home Care Services: No UM Disposition D/C Disposition: Home Health Care Services Related to Current Admission?: Yes Agency/Destination: [facility] Home Care Needs : Home health care Reason for Choice: Patient/Family prefernce documented in this encounter Care Teams (unrecognized sec tion and content) Payer Specialist Relationship Specialty Start Date End Date Don Barrera MD [address] [place] [address] PCP - General Family Medicine 03/21/16 Vijay Viveros MD Consulting Physician Orthopedic Surgery 09/11/19 Payer Specialist Relationship Specialty Start Date End Date Don Barrera MD [address] [place] [address] PCP - General Family Medicine 03/21/16 Vijay Viveros MD Consulting Physician Orthopedic Surgery 09/11/19 Payer Specialist Relationship Specialty Start Date End Date Don Barrera MD [address] [place] [address] PCP - General Family Medicine 03/21/16 Vijay Viveros MD Consulting Physician Orthopedic Surgery 09/11/19 Payer Specialist Relationship Specialty Start Date End Date Don Barrera MD [address] [facility] [place] [phone] PCP - General Family Medicine 03/21/16 Vijay Viveros MD [address] [facility] [place] [phone] Consulting Physician Orthopedic Surgery 09/11/19 Payer Specialist Relationship Specialty Start Date End Date Don Barrera [facility] [place] [address] PCP - General Family Medicine 03/21/16 Vijay Viveros MD [address] [place] [address] [place] [address] Consulting Physician Orthopedic Surgery 09/11/19 Payer Specialist Relationship Specialty Start Date End Date Don Barrera MD PCP - General Internal Medicine 04/10/13 Payer Specialist Relationship Specialty Start Date End Date Don Barrera MD [address] [place] [address] PCP - General 06/24/19 Don Barrera MD [address] [place] [address] PCP - MSSP ACO Attributed Provider 10/22/21 Payer Specialist Relationship Specialty Start Date End Date Don Barrera MD [address] [place] [address] PCP - General 06/24/19 Don Barrera MD [address] [place] [address] PCP - MSSP ACO Attributed Provider 10/22/21 Payer Specialist Relationship Specialty Start Date End Date Don Barrera MD [address] [place] [address] PCP - MSSP ACO Attributed Provider 10/22/21 Don Barrera MD [address] [place] [address] PCP - General Family Medicine 07/22/23 Payer Specialist Relationship Specialty Start Date End Date Don Barrera MD PCP - General Internal Medicine 04/10/13 Howard Soria OD [address] [place] [address] Optometry 08/29/23 Payer Specialist Relationship Specialty Start Date End Date Don Barrera MD [address] [place] [address] [facility] Attributed Provider 10/22/21 Don Barrera MD [address] [place] [address] PCP - General Family Medicine 07/22/23 Payer Specialist Relationship Specialty Start Date End Date Don Barrera MD [address] [place] [address] P[facility] - [facility] Attributed Provider 10/22/21 Don Barrera MD [address] [place] [address] PCP - General Family Medicine 07/22/23 Payer Specialist Relationship Specialty Start Date End Date Don Barrera MD [address] [place] [address] [facility] Attributed Provider 10/22/21 Don Barrera MD [address] [place] [address] PCP - General Family Medicine 07/22/23 Payer Specialist Relationship Specialty Start Date End Date Don Barrera MD [address] [place] [address] PCP - General Family Medicine 03/21/16 Vijay Viveros MD [address] [place] [phone] Consulting Physician Orthopedic Surgery 09/11/19 Payer Specialist Relationship Specialty Start Date End Date Don Barrera MD [address] [place] [phone] PCP - General Family Medicine 03/21/16 Vijay Viveros MD [address] [place] [phone] Consulting Physician Orthopedic Surgery 09/11/19 Payer Specialist Relationship Specialty Start Date End Date Don Barrera MD [address] [place] [address] PCP - MSSP ACO Attributed Provider 10/22/21 Don Barrera MD [address] [place] [phone] PCP - General Family Medicine 07/22/23 Payer Specialist Relationship Specialty Start Date End Date Don Barrera MD [address] [place] [phone] PCP - MSSP ACO Attributed Provider 10/22/21 Don Barrera MD [address] [place] [address] PCP - General Family Medicine 07/22/23 Payer Specialist Relationship Specialty Start Date End Date Don Barrera MD [address] [place] [address] PCP - MSSP ACO Attributed Provider 10/22/21 Don Barrera MD [address] [place] [address] PCP - General Family Medicine 07/22/23 Payer Specialist Relationship Specialty Start Date End Date Don Barrera MD [address] [place] [address] PCP - MSSP ACO Attributed Provider 10/22/21 Don Barrera MD [address] [place] [address] PCP - General Family Medicine 07/22/23 Payer Specialist Relationship Specialty Start Date End Date Don Barrera MD [address] [place] [phone] P[facility] - [facility] Attributed Provider 10/22/21 Don Barrera MD [address] [place] [phone] PCP - General Family Medicine 07/22/23 Payer Specialist Relationship Specialty Start Date End Date Dno Barrera MD [address] [place] [phone] PCP - [facility] Attributed Provider 10/22/21 Don Barrera MD [address] [place] [address] PCP - General Family Medicine 07/22/23 Payer Specialist Relationship Specialty Start Date End Date Don Barrera MD [address] [place] [address] PCP - [facility] Attributed Provider 10/22/21 Don Barrera MD [address] [place] [phone] PCP - General Family Medicine 07/22/23 Payer Specialist Relationship Specialty Start Date End Date Don Barrera MD [address] [place] [phone] PCP - General Family Medicine 03/21/16 Vijay Viveros MD [address] [place] [phone] Consulting Physician Orthopedic Surgery 09/11/19 Payer Specialist Relationship Specialty Start Date End Date Don [facility]rera [facility] [place] [phone] PCP - [facility] Attributed Provider 10/22/21 Don Barrera MD [address] [place] [phone] PCP - General Family Medicine 07/22/23 Payer Specialist Relationship Specialty Start Date End Date Don Barrera MD [address] [place] [phone] PCP - General Family Medicine 03/21/16 Vijay Viveros MD [address] [place] [phone] Consulting Physician Orthopedic Surgery 09/11/19 Payer Specialist Relationship Specialty Start Date End Date Don Barrera MD PCP - General Internal Medicine 04/10/13 Howard Soria OD [address] [address] Optometry 08/29/23 Payer Specialist Relationship Specialty Start Date End Date Don Barrera MD [address] [place] [address] PCP - [facility] Attributed Provider 10/22/21 Don Barrera MD [address] [place] [phone] PCP - General Family Medicine 07/22/23 Payer Specialist Relationship Specialty Start Date End Date Don Barrera MD [address] [place] [address] PCP - MSSP ACO Attributed Provider 10/22/21 Don Barrera MD [address] [place] [phone] PCP - General Family Medicine 07/17/24 Payer Specialist Relationship Specialty Start Date End Date Don Barrera MD [address] [place] [phone] PCP - MSSP ACO Attributed Provider 10/22/21 Don Barrera MD [address] [address] PCP - General Family Medicine 07/17/24 Payer Specialist Relationship Specialty Start Date End Date Don Barrera MD [address] [address] PCP - MSSP ACO Attributed Provider 10/22/21 Don Barrera MD [address] [place] [phone] PCP - General Family Medicine 07/17/24 Payer Specialist Relationship Specialty Start Date End Date Don Barrera MD [address] [place] [phone] PCP - General Family Medicine 03/21/16 Vijay Viveros MD [address] [place] [phone] Consulting Physician Orthopedic Surgery 09/11/19 Payer Specialist Relationship Specialty Start Date End Date Don Barrera MD [address] [place] [phone] PCP - MSSP ACO Attributed Provider 10/22/21 Don Barrera MD [address] [place] [phone] PCP - General Family Medicine 07/22/23 Payer Specialist Relationship Specialty Start Date End Date Don Barrera MD [address] [place] [phone] P[facility] - [facility] Attributed Provider 10/22/21 Don Barrera MD [address] [place] [phone] PCP - General Family Medicine 07/22/23 Payer Specialist Relationship Specialty Start Date End Date Don Barrera MD [address] [address] PCP - MSSP ACO Attributed Provider 10/22/21 Don Barrera MD [address] [address] PCP - General Family Medicine 07/22/23 Payer Specialist Relationship Specialty Start Date End Date Don Barrera MD [address] [address] PCP - MSSP ACO Attributed Provider 10/22/21 Don Barrera MD [address] [place] [phone] PCP - General Family Medicine 07/17/24 Payer Specialist Relationship Specialty Start Date End Date Don Barrera MD [address] [place] [address] PCP - General Family Medicine 03/21/16 Vijay Viveros MD [address] [place] [address] Consulting Physician Orthopedic Surgery 09/11/19 Payer Specialist Relationship Specialty Start Date End Date Don Barrera MD [address] [address] PCP - MSSP ACO Attributed Provider 10/22/21 Don Barrera MD [address] [address] PCP - General Family Medicine 07/17/24 Payer Specialist Relationship Specialty Start Date End Date Don Barrera MD [address] [place] [address] PCP - MSSP ACO Attributed Provider 10/22/21 Don Barrera MD [address] [place] [address] PCP - General Family Medicine 07/17/24 Payer Specialist Relationship Specialty Start Date End Date Don Barrera MD [address] [place] [address] PCP - MSSP ACO Attributed Provider 10/22/21 Don Barrera MD [address] [place] [address] PCP - General Family Medicine 07/17/24 Payer Specialist Relationship Specialty Start Date End Date Don Barrera MD [address] [place] [address], [place] [address] PCP - MSSP ACO Attributed Provider 10/22/21 Don Barrera MD [address] [place] [address], [place] [address] PCP - General Family Medicine 07/17/24 Payer Specialist Relationship Specialty Start Date End Date Don Barrera MD [address] [place] [address] PCP - MSSP ACO Attributed Provider 10/22/21 Don Barrera MD [address] [place] [address] PCP - General Family Medicine 07/17/24 <item> [...] or prosecute any alcohol or drug abuse patient.[facility] Hospital[facility] the event this information is protected by the Federal Confidentiality of Alcohol and Drug Abuse Patient Records regulations: The Federal rules restrict any use of the information to criminally investigate or prosecute any alcohol or drug abuse patient.[facility] Hospital[facility] the event this information is protected by the Federal Confidentiality of Alcohol and Drug Abuse Patient Records regulations: The Federal rules restrict any use of the information to criminally investigate or prosecute any alcohol or drug abuse patient.[facility] Scheduled Active and Recently Administ ered [...] On 07/22/23 at 2235, For 1 dose 225 (New Bag - Provider: Fatou Landeros, ANNA) 001 (Stopped - Provider: Fatou Landeros RN) Scheduled [...] Mesha 11/15/23 at 1630, For 1 dose 1644 (Given - Provid er: Jaci Soto RN) [...] Mesha 11/15/23 at 1630, For 1 dose 1644 (New Bag - Prov ider: Jaci Soto [...] dose 1999 (Given - Provid er: Iliana Chan RN) iohexol (OMNIPaque) 350 mg iodine/mL solution 95 mL (COMPLETED) 95 mL, intravenous, Once in imaging, Starting on 05/10/25 at 1506, For 1 dose 1506 (Given - Provid er: Eliceo Christopher, RT - Comment: 3.5 mL/s) lidocaine-epinephrine (Xylocaine W/EPI) 1 %-1:100,000 injection 20 mL (COMPLETED) 20 mL, infiltration, Once, On 05/10/25 at 1405, For 1 dose 173 (Given - Provid er: Iliana Chan RN - Comment: administered by PA) morphine injection [...] Mcarthur RN)1558 (Not Given - Provider: Yusuf Mcatrhur RN - Reason: Other)2057 (Given - Provider: Juana Mclean RN) 0212 (Not Given - Provider: Juana Mclean RN - Reason: Patient/family refused)0923 (Given - Provider: Yusuf Mcarthur RN)1823 (Not Given - Provider: Yusuf Mcarthur RN - Reason: Other)2133 (Given - Provider: Doyle Greene RN) 0505 (Given - Provider: Doyle Greene RN)1021 (Given - Provider: Mack Mckinley RN)1403 (Not Given - Provider: Mack Mckinley RN [...] Mcarthur RN) 1021 (Given - Provider: Mack Mckinley, ANNA) enoxaparin (Lovenox) syringe 30 mg 30 mg, subcutaneous, Every 12 hours scheduled, First dose on Sun05/13/25 at 1200 1335 (Given - Provider: Yusuf Mcarthur RN)2326 (Given - Provider: Juana Mclean RN) 1332 (Given - Provider: Yusuf Mcarthur RN) 0029 (Given - Provider: Doyle Greene RN)1228 (Given - Provider: Mack Mckinley, ANNA) metoprolol tartrate (Lopressor) tablet 12.5 mg 12.5 mg, nasoduodenal tube, 2 times daily, First dose (after last modification) on 05/16/25 at 0900, Hold for SBP<110, HR<70 0910 (Given - Provider: Yusuf Mcarthur RN)2059 (Given - Provider: Juana Mclean RN) 0923 (Given - Provider: Yusuf Mcarthur RN)2133 (Given - Provider: Doyle Greene RN) 1021 (Given - Provider: Mack Mckinley, ANNA)2100 (Due) [...] (after last modification) on 05/16/25 at 2100 2056 (Given - Provider: Juana Mclean, RN) 2132 (Given - Provider: Doyle Greene RN) 2100 [...] BE BASED ON THE PRIMARY CLINICAL RECORDS. [employer] [facility]. provides no warranty or guarantee of the accuracy or completeness of information in this document.
[2025-05-26] MEDS: Lactated Ringers 1,000 ML 15 ML IV (06:37)
--- NOTE | 2025-05-26 06:44 | HP.PCM_ITS ---
HPI - General General Date of Admission: 05/26/25 Date of Service: 05/26/25 Chief Complaint: Dysphagia HPI Narrative 89 year old male with below past medical history hospitalized for SDH, SAH, multiple traumatic fractures, complicated by dysphagia requiring dobbhoff TF, admitted to TCU with debility. I was consulted to see him due to his inability to swallow safely and need for placement of PEG tube. [facility] Medical History Dysphagia Hyperlipidemia Depression BPH (benign prostatic hyperplasia) TIA (transient ischemic attack) Coronary artery disease Carotid artery stenosis Osteoarthritis Essential (primary) hypertension GERD (gastroesophageal reflux disease) Sacral fracture Bilateral pubic rami fractures SAH (subarachnoid hemorrhage) SDH (subdural hematoma) Orbital roof fracture Orbital floor fracture Debility Home Medications ?Medication ?Instructions ?Recorded ?Last Taken ?Type acetaminophen 325 mg capsule 650 mg feeding tube Q6H P ain 05/20/25 05/20/25 10:20 History alfuzosin 10 mg tablet,extended 10 mg PO DAILY BPH Unknown History release 24 hr amitriptyline 10 mg tablet 10 mg feeding tube QHS Mood 05/20/25 Unknown History amlodipine 5 mg tablet 5 mg feeding tube DAILY BP 0 05/20/25 Unknown History aspirin 81 mg tablet 81 mg PO DAILY Heart 5 Unknown History benazepril 40 mg tablet 40 mg feeding tube DAILY BP 05/20/25 Unknown History bisacodyl 5 mg tablet 5 mg PO DAILY PRN constipati on 05/20/25 Unknown History cholecalciferol (vitamin D3) 125 125 mcg feeding tube DAILY 05/20/25 05/20/25 10:20 History mcg (5,000 unit) tablet Supplement cyanocobalamin (vitamin B-12) 1,000 mcg PO DAILY Suppl ement 05/20/25 05/20/25 10:25 History 1,000 mcg capsule enoxaparin 30 mg/0.3 mL 30 mg subcut Q12H DVT prophy laxis 05/20/25 05/20/25 12:30 History subcutaneous syringe escitalopram oxalate 5 mg tablet 5 mg feeding tube ELIN LY Mood 05/20/25 Unknown History folic acid 1 mg tablet 2 mg feeding tube DAILY Supp lement 05/20/25 Unknown History methotrexate sodium 5 mg tablet 20 mg feeding tube QWE EK Arthritis 05/20/25 Unknown History (Trexall) metoprolol tartrate 25 mg tablet 25 mg feeding tube BI D BP 05/20/25 Unknown History omeprazole 40 mg capsule,delayed 40 mg PO DAILY GERD 0 05/20/25 Unknown History release ondansetron HCl 4 mg tablet 4 mg feeding tube Q8H PRN nausea 05/20/25 Unknown History and vomiting oxycodone 5 mg tablet 5 mg feeding tube Q4H PRN pa in 05/20/25 Unknown History (scale score 7-10) pantoprazole 40 mg tablet,delayed 40 mg PO DAILY GERD 05/20/25 Unknown History release polyethylene glycol 3350 17 17 g feeding tube DAILY Unknown History gram/dose oral powder (Miralax) Constipation pravastatin 40 mg tablet 40 mg feeding tube QHS Vivian sterol 05/20/25 Unknown History sennosides 8.6 mg tablet (Senokot) 8.6 mg PO QHS Const ipation 05/20/25 Unknown History vitamins A,C,X-qmst-cnvkbo 4,296 1 cap PO DAILY Eye Vi tamin 05/20/25 Unknown History mcg-226 mg-90 mg capsule (Healthy Eyes SuperVision) doxazosin 4 mg tablet (Cardura) 4 mg PO QHS 05/25/25 U nknown History lactose-reduced food-fiber 0.07 See Rx Instructions fe eding tube 05/25/25 Unknown History gram-1.5 kcal/mL liquid for tube .COMPLEX feed (Isosource 1.5 Esvin) menthol 0.44 %-zinc oxide 20.6 % 1 applic topical BID 05/25/25 Unknown History topical ointment (CalaSoothe) Allergy/AdvReac Type Severity Reaction Status Date / Time No Known Allergies Allergy Verified 05/20/25 19:39 Family History Mother Hypertension Hyperlipidemia, unspecified Osteoarthritis Hearing loss Vision loss Father Heart disease Pneumonia CVA (cerebral vascular accident) Hearing loss Suicide attempt Surgical History History of wisdom tooth extraction History of vasectomy History of tonsillectomy and adenoidectomy History of total hip arthroplasty History of shoulder surgery History of hernia repair History of colonoscopy History of circumcision History of cataract surgery History of cardiac catheterization Social History household members: spouse Smoking Status: Former smoker alcohol intake: never substance use type: does not use ROS Constitutional Constitutional: Denies fatigue, fever(s), poor appetite, weight gain or weight loss Gastrointestinal Gastrointestinal: Denies belching, bloating, change in bowel habits, change in stool character, chewing difficulty, coffee ground emesis, constipation, cramping, diarrhea, dyspepsia, dysphagia, early satiety, excessive flatus, fecal incontinence, heartburn, hematemesis, hematochezia, hemorrhoids, loose stools, melena, nausea, odynophagia, rectal bleeding, tenesmus, vomiting or weight changes Vital Signs Vital Signs Vital Signs: 05/26/25 06:17 05/26/25 06:17 Temperature 99.0 F Temperature Source Temporal Pulse Rate 72 Respiratory Rate 18 Respiratory Pattern Normal Blood Pressure 107/56 L Blood Pressure Mean 73 Blood Pressure Source Monitor Blood Pressure Position Semi-Fowlers Blood Pressure Location Left Arm Pulse Ox 96 Oxygen Delivery Method Room Air Weight Weight: 145 lb 10.724 oz Body Mass Index (BMI) 23.5 Physical Exam Const alert, oriented x3, no apparent distress and healthy appearing General Appearance: cooperative GI normal to inspection, nondistended, normoactive bowel sounds, soft to palpation, non-tender and non-distended Percussion: normal to percussion Rectal Exam: deferred Assessment & Plan Assessment/Plan (1) Dysphagia: PLAN: 89 year old male with below past medical history hospitalized for SDH, SAH, multiple traumatic fractures, complicated by dysphagia requiring dobbhoff TF, admitted to TCU with debility. He will undergo PEG tube placement. He was explained alternatives, risk and benefits clinical withstanding bleeding, infection, sepsis, perforation, need for surgery and . He will have an ASA of 3.
--- NOTE | 2025-05-26 07:04 | PRE.ANES_ITS ---
ASA Classification* ASA Classification ASA Classification: 3 Assessment & Plan Anesthesia* Anesthesia Assessment Anesthesia Assessment: Discussed sedation and/or anesthesia options, risks, benefits, and alternatives with patient/parents/legal guardian/POA. Questions invited. The patient/parents/legal guardian/POA seems to understand and agrees to proceed with anesthesia plan. Reviewed the physical assessment, medical history, allergy history and patient home medications list prior to surgery/procedure/anesthetic and documented any changes. Performed airway and anesthesia risk assessments. Anesthesia Type Anesthesia Type: General and MAC History Source History Obtained from:: Patient, Chart, Parent/ Guardian and - (I discussed in detail with and daughter the risks of anesthesia with the procedure and possibility of aspiration) Anesthesia Focused Assessment* Temperature: 99.0 F Pulse Rate: 72 Blood Pressure: 107/56 Respiratory Rate: 18 Pulse Ox: 96 Oxygen Delivery Method: Room Air Airway Assessment Mouth opens: >3 cm Mallampati Score: II Teeth Condition: Chipped/Broken Neck Range of motion (ROM): Limited ROM Labs Anesthesia Preop lab: CBC WBC 12.5 K/mm3 (4.4-11.0) H 05/21/25 05:17 5 RBC 3.29 M/mm3 (4.6-6.2) L 05/21/25 05:17 05/21/25 Hgb 10.9 g/dL (13.0-16.5) L 05/21/25 05:17 5 Hct 33.7 % (40-54) L 05/21/25 05:17 05/21/25 Plt Count 442 K/mm3 (150-450) 05/21/25 05:17 05/21/25 CHEMISTRY Potassium 3.8 mmol/L (3.3-5.1) 05/24/25 06:45 05/24/25 Sodium 132 mmol/L (133-145) L 05/24/25 06:45 05/24/25 BUN 39 mg/dL (4-19) H 05/24/25 06:45 05/24/25 Creatinine 0.78 mg/dL (0.70-1.20) 05/24/25 06:45 05/24/25 Glucose 136 mg/dL (70-99) H 05/24/25 06:45 05/24/25 POC Glucose 128 mg/dL (74-106) H 05/26/25 05:41 05/26/25 COAG Pre-Assessment Diagnosis/Proposed Procedure Planned Operative Procedure(s): EGD, PEG Anesthesia History Anesthesia History - nutrition internship: Anesthesia History - nutrition internship Hx Hospitalization Any Problems With Anesthesia Cholinesterase deficiency You/Your Family Experience fever (hyperthermia) with Relationship Recent Exposure to Contagious No 05/26/25 06:17 Disease Does patient have nerve stimulator Patient instructed to have device shut off --Does patient have Pacemaker or ICD? When Was Last Pacemaker Check QUESTION #4 FULL TEXT: You/Your Family Experience fever (hyperthermia) with Anesthesia Last Oral Intake Last Oral intake: Last Oral Intake NPO since Meds taken in AM with sips of water? Meds patient instructed to unknown, from TCU 05/26/25 06:17 take am of surgery PONV PONV - nutrition internship: PONV - nutrition internship Female HX of Motion Sickness HX of N/V After Surgery Non-Smoker Duration of Surgery greater than 60 minutes Number of Risk Factors PONV Score Height & Weight Height & Weight: Anesthesia: Height & Weight Height 5 ft 6 in 05/26/25 06:17 Weight: 66.075 kg 05/26/25 06:17 Body Mass Index (BMI) 23.5 05/26/25 06:17 Respiratory Assessment Respiratory Assessment - nutrition internship: Respiratory Tract Infection Hx - nutrition internship Hx Respiratory Tract Infection STOP Sleep Apnea STOP Sleep Apnea - nutrition internship: STOP Sleep Apnea - nutrition internship Hx Hypertension Yes 05/21/25 12:18 Hx Sleep Apnea Yes 05/20/25 18:06 CPAP Yes: states he does not use 05/20/25 18:06 at home but has one BIPAP No 05/20/25 18:06 Do you snore loudly (louder than talking or can be heard Do you often feel tired/ fatigued/ sleepy during daytime? Has anyone observed you stop breathing during sleep? STOP Results QUESTION #5 FULL TEXT : Do you snore loudly (louder than talking or can be heard through closed doors)? Tobacco Use History Tobacco Use History - nutrition internship: Tobacco Use History - nutrition internship Tobacco Use Smoking Status Former smoker 05/20/25 21:46 Hx Tobacco Use No 05/20/25 18:06 Years Smoking Packs Smoked per Day Smoking Cessation Date was within the last 15 years Hx Smoking Cessation Date Hx Smoking Cessation No 05/20/25 18:06 Counseling Hematologic Medial History Hematologic Hx - nutrition internship: Hematologic Medical Hx - learning and development director Hx of Blood Transfusion Hx of Transfusion in last 3 Months Date of Last Transfusion (if within last 3 months) Ever experience any problems with transfusion(s)? Specify any problems Hx of Preganancy in last 3 Months Nurse Filling Out Transfusion & Questions: Date: Time: Patient unable to answer at this time (ie. confused, unrespo /Reproduction History /Reproductive History - nutrition internship: /Reproductive Hx- nutrition internship Hx Now Gestational Age (in weeks): EDC: Hx Hx Para Hx Section SAB Active Medications Active Medications: Current Medications Generic Name Dose Route Start Last Admin Trade Name Freq PRN Reason Stop Dose Admin Lactated Ringer's 1,000 mls @ 15 mls/hr 05/26/25 06:00 05/26/25 06:37 IV 15 mls/hr .Q48H KIKA Administration Cefazolin Sodium 2 gm/ Sodium 110 mls @ 200 mls/hr 05/26/25 06:45 Chloride IV 05/26/25 07:17 X1 ONE PFSH Medical History Dysphagia Hyperlipidemia Depression BPH (benign prostatic hyperplasia) TIA (transient ischemic attack) Coronary artery disease Carotid artery stenosis Osteoarthritis Essential (primary) hypertension GERD (gastroesophageal reflux disease) Sacral fracture Bilateral pubic rami fractures SAH (subarachnoid hemorrhage) SDH (subdural hematoma) Orbital roof fracture Orbital floor fracture Debility Home Medications ?Medication ?Instructions ?Recorded ?Last Taken ?Type acetaminophen 325 mg capsule 650 mg feeding tube Q6H P ain 05/20/25 05/20/25 10:20 History alfuzosin 10 mg tablet,extended 10 mg PO DAILY BPH Unknown History release 24 hr amitriptyline 10 mg tablet 10 mg feeding tube QHS Mood 05/20/25 Unknown History amlodipine 5 mg tablet 5 mg feeding tube DAILY BP 0 05/20/25 Unknown History aspirin 81 mg tablet 81 mg PO DAILY Heart 5 Unknown History benazepril 40 mg tablet 40 mg feeding tube DAILY BP 05/20/25 Unknown History bisacodyl 5 mg tablet 5 mg PO DAILY PRN constipati on 05/20/25 Unknown History cholecalciferol (vitamin D3) 125 125 mcg feeding tube DAILY 05/20/25 05/20/25 10:20 History mcg (5,000 unit) tablet Supplement cyanocobalamin (vitamin B-12) 1,000 mcg PO DAILY Suppl ement 05/20/25 05/20/25 10:25 History 1,000 mcg capsule enoxaparin 30 mg/0.3 mL 30 mg subcut Q12H DVT prophy laxis 05/20/25 05/20/25 12:30 History subcutaneous syringe escitalopram oxalate 5 mg tablet 5 mg feeding tube ELIN LY Mood 05/20/25 Unknown History folic acid 1 mg tablet 2 mg feeding tube DAILY Supp lement 05/20/25 Unknown History methotrexate sodium 5 mg tablet 20 mg feeding tube QWE EK Arthritis 05/20/25 Unknown History (Trexall) metoprolol tartrate 25 mg tablet 25 mg feeding tube BI D BP 05/20/25 Unknown History omeprazole 40 mg capsule,delayed 40 mg PO DAILY GERD 0 05/20/25 Unknown History release ondansetron HCl 4 mg tablet 4 mg feeding tube Q8H PRN nausea 05/20/25 Unknown History and vomiting oxycodone 5 mg tablet 5 mg feeding tube Q4H PRN pa in 05/20/25 Unknown History (scale score 7-10) pantoprazole 40 mg tablet,delayed 40 mg PO DAILY GERD 05/20/25 Unknown History release polyethylene glycol 3350 17 17 g feeding tube DAILY Unknown History gram/dose oral powder (Miralax) Constipation pravastatin 40 mg tablet 40 mg feeding tube QHS Vivian sterol 05/20/25 Unknown History sennosides 8.6 mg tablet (Senokot) 8.6 mg PO QHS Const ipation 05/20/25 Unknown History vitamins A,C,R-vtxh-piakhr 4,296 1 cap PO DAILY Eye Vi tamin 05/20/25 Unknown History mcg-226 mg-90 mg capsule (Healthy Eyes SuperVision) doxazosin 4 mg tablet (Cardura) 4 mg PO QHS 05/25/25 U nknown History lactose-reduced food-fiber 0.07 See Rx Instructions fe eding tube 05/25/25 Unknown History gram-1.5 kcal/mL liquid for tube .COMPLEX feed (Isosource 1.5 Esvin) menthol 0.44 %-zinc oxide 20.6 % 1 applic topical BID 05/25/25 Unknown History topical ointment (CalaSoothe) Allergy/AdvReac Type Severity Reaction Status Date / Time No Known Allergies Allergy Verified 05/20/25 19:39 Family History Mother Hypertension Hyperlipidemia, unspecified Osteoarthritis Hearing loss Vision loss Father Heart disease Pneumonia CVA (cerebral vascular accident) Hearing loss Suicide attempt Surgical History History of wisdom tooth extraction History of vasectomy History of tonsillectomy and adenoidectomy History of total hip arthroplasty History of shoulder surgery History of hernia repair History of colonoscopy History of circumcision History of cataract surgery History of cardiac catheterization Social History household members: spouse Smoking Status: Former smoker alcohol intake: never substance use type: does not use Review of Systems (Anesthesia) ROS Narrative System reviewed and no additional complaints, except as documented.
[2025-05-26] MEDS: Cefazolin 1 GM/5 ML Vial 2 GM IV (07:12)
[2025-05-26] MEDS: Cefazolin 2 GM in 0.9% Normal Saline (100mL Bag) 100 ML IV (07:12)
[2025-05-26] MEDS: Lactated Ringers 500 ML IV (07:12)
--- NOTE | 2025-05-26 07:51 | OP.EGD_ITS ---
Patient Name: Jona Cameron Procedure Date: 05/26/2025 7:08 AM Date of : 1935 Age: 89 Procedure: Upper GI endoscopy Indications: Dysphagia Providers: Stan Ferrara DO Medicines: Monitored Anesthesia Care Patient Profile: This is an 89 year old male. Refer to note in patient chart for documentation of history and physical. Patient has symptoms of dysphagia with both liquids and solids. Complications: No immediate complications. Procedure: Pre-Anesthesia Assessment: - Prior to the procedure, a History and Physical was performed, and patient medications and allergies were reviewed. The patient is competent. The risks and benefits of the procedure and the sedation options and risks were discussed with the patient. All questions were answered and informed consent was obtained. Patient identification and proposed procedure were verified by the physician in the pre-procedure area. Mental Status Examination: alert and oriented. Airway Examination: normal oropharyngeal airway and neck mobility. Respiratory Examination: clear to auscultation. CV Examination: normal. Prophylactic Antibiotics: The patient does not require prophylactic antibiotics. Prior Anticoagulants: The patient has taken no anticoagulant or antiplatelet agents. ASA Grade Assessment: II - A patient with mild systemic disease. After reviewing the risks and benefits, the patient was deemed in satisfactory condition to undergo the procedure. The anesthesia plan was to use monitored anesthesia care (MAC). Immediately prior to administration of medications, the patient was re-assessed for adequacy to receive sedatives. The heart rate, respiratory rate, oxygen saturations, blood pressure, adequacy of pulmonary ventilation, and response to care were monitored throughout the procedure. The physical status of the patient was re-assessed after the procedure. After obtaining informed consent, the endoscope was passed under direct vision. Throughout the procedure, the patient's blood pressure, pulse, and oxygen saturations were monitored continuously. The Endoscope was introduced through the mouth, and advanced to the second part of duodenum. The upper GI endoscopy was accomplished without difficulty. The patient tolerated the procedure well. Scope In: 7:33:35 AM Scope Out: 7:45:09 AM Total Procedure Duration Time 0 hours 11 minutes 34 seconds Findings: The examined esophagus was normal. Localized moderate inflammation characterized by erythema was found in the gastric body. The patient was placed in the supine position for PEG placement. The stomach was insufflated to appose gastric and abdominal hui. A site was located in the body of the stomach with excellent transillumination for placement. The abdominal wall was marked and prepped in a sterile manner. The area was anesthetized with 1 mL of 0.5% lidocaine. The trocar needle was introduced through the abdominal wall and into the stomach under direct endoscopic view. A snare was introduced through the endoscope and opened in the gastric lumen. The guide wire was passed through the trocar and into the open snare. The snare was closed around the guide wire. The endoscope and snare were removed, pulling the wire out through the mouth. A skin incision was made at the site of needle insertion. The endoscopically removable 20 Fr EndoVive Safety gastrostomy tube was lubricated. The G-tube was tied to the guide wire and pulled through the mouth and into the stomach. The trocar needle was removed, and the gastrostomy tube was pulled out from the stomach through the skin. The external bumper was attached to the gastrostomy tube, and the tube was cut to remove the guide wire. The final position of the gastrostomy tube was confirmed by relook endoscopy, and skin marking noted to be 4 cm at the external bumper. The final tension and compression of the abdominal wall by the PEG tube and external bumper were checked and revealed that the bumper was loose and lightly touching the skin. The feeding tube was capped, and the tube site cleaned and dressed. Estimated blood loss was minimal. No gross lesions were noted in the duodenal bulb. Impression: - Normal esophagus. - Gastritis. - No gross lesions in the duodenal bulb. - An endoscopically removable PEG placement was successfully completed. - No specimens collected. Recommendation: - Discharge patient to home. - Resume previous diet. - Continue present medications. Procedure Code(s): --- Professional --- 56945, Esophagogastroduodenoscopy, flexible, transoral; with directed placement of percutaneous gastrostomy tube CPT copyright 2021 [employer]. All rights reserved. The codes documented in this report are preliminary and upon coagulating operator review may be revised to meet current compliance requirements. Stan Ferrara DO 05/26/2025 7:51:14 AM This report has been signed electronically. Number of Addenda: 0 Note Initiated On: 05/26/2025 7:08 AM
--- NOTE | 2025-05-26 07:51 | OP.PROVAT_ITS ---
05/26/2025 Devan Welch Re : Upper GI endoscopy procedure for Jona Cameron Dear Yuri This procedure was performed on Monday, May 26, 2025. My impressions and recommendations are as follows: Impressions : - Normal esophagus. - Gastritis. - No gross lesions in the duodenal bulb. - An endoscopically removable PEG placement was successfully completed. - No specimens collected. Recommendations : - Discharge patient to home. - Resume previous diet. - Continue present medications. My findings are described in the full procedure note, which is enclosed. If I can be of further assistance, please feel free to contact me at . Sincerely, Stan Ferrara, 05/26/2025 7:51:14 AM This report has been signed electronically.
--- NOTE | 2025-05-26 08:14 | PCM.POST.ANE ---
Anesthesia: Postop Eval I Current Vital Signs Temperature: 98 F Pulse Rate: 85 Blood Pressure: 92/72 Respiratory Rate: 18 Pulse Ox: 96 Assessment Airway patent: Yes Spontaneous unlabored respirations: Yes nausea: No Vomiting: No Anesthesia Complication: No Fluid Hydration Crystalloid volume administer (ml): 500 Total IV fluid infused: 500 Progress Note Anesthesia document: Postop Eval 1 completed: Yes
--- NOTE | 2025-05-26 09:33 | SUR.PHASEI ---
THIS NURSE SPOKE TO ERMELINDA NAVA NURSE ON TCU. REPORT GIVEN AND PATIENT IS OK TO RETURN TO THE FLOOR.
--- NOTE | 2025-05-26 12:26 | POSTOPAN2_ITS ---
Anesthesia Postop Eval I Sum Postop Eval Completion status Anesthesia document: Postop Eval 1 completed: Yes Anesthesia Postop Eval I Summary Anesthesia Postop Eval I Summary: Anesthesia Postop Eval I: Assessment Summary Airway patent Yes 05/26/25 08:15 INTELLIGENCE SENIOR SERGEANT.TNES Spontaneous unlabored Yes 05/26/25 08:15 INTELLIGENCE SENIOR SERGEANT.TNES respirations Mental status nausea No 05/26/25 08:15 INTELLIGENCE SENIOR SERGEANT.TNES Vomiting No 05/26/25 08:15 INTELLIGENCE SENIOR SERGEANT.TNES Anesthesia Postop Eval I: Fluid Summary Crystalloid volume administer 500 05/26/25 08:15 INTELLIGENCE SENIOR SERGEANT.TNES (ml) Colloids volume administered ( ml) Blood Product volume administered (ml) Total IV fluid infused 500 05/26/25 08:15 INTELLIGENCE SENIOR SERGEANT.TNES Anesthesia Postop Eval I: Summary Notes Anesthesia Complication No 05/26/25 08:15 INTELLIGENCE SENIOR SERGEANT.TNES Anesthesia Complication Comment: Post-operative progress note Anesthesia: Postop Eval II Evaluation Mental status: Awake and Calm Pain Level: 1 nausea: No Vomiting: No Progress Note Post-operative progress note: In PACU requiring oxygen via nasal cannula 2 to 4 L to maintain saturation 90 to 92%. Respiratory effort at baseline. Rhonchi on auscultation bilateral. I spoke over the phone with his primary care physician Dr. Wiggins. Will be going from PACU to transitional care where he came from. Dr. Wiggins agreed to do a chest x-ray and labs and follow-up. We discussed in detail the deconditioning of the patient and the need for close follow-up. Dr. Wiggins accepted the care and follow-up for the patient Complications Anesthesia Complication: No
== END 2025-05-26 09:36 | disposition home or self-care (01) ==
LOC: EN 05:47 → AC 05:48
PROVIDERS: PCP Family Medicine; Referring Provider Family Medicine; Visit Provider Internal Medicine Gastroenterology
PROC: 0DJ08ZZ Inspection of Upper Intestinal Tract, Via Natural or Artificial Opening Endoscopic (ICD-10-PCS; CPT 43235; principal; 2025-05-26 06:55)
DX: R13.10 Dysphagia, unspecified (principal); Z93.1 Gastrostomy status; K29.70 Gastritis, unspecified, without bleeding; E78.5 Hyperlipidemia, unspecified; N40.0 Benign prostatic 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 lower urinary tract symptoms; I25.10 Atherosclerotic heart disease of native coronary artery without angina pectoris; I10 Essential (primary) hypertension; K21.9 Gastro-esophageal reflux disease without esophagitis; Z79.82 Long term (current) use of aspirin; Z79.01 Long term (current) use of anticoagulants; Z79.899 Other long term (current) drug therapy; Z86.73 Personal history of transient ischemic attack (TIA), and cerebral infarction without residual deficits; Z87.891 Personal history of nicotine dependence
CPT/HCPCS: 43246; 94640

== ENCOUNTER → 2025-05-26 | Outpatient (CLI) | payer MEDICARE, OTHER, SELFPAY ==
--- NOTE | 2025-05-26 11:10 | CT_ITS ---
PROCEDURE: CTA CHEST W/WO CONTRAST 05/26/2025 REASON FOR EXAM: R/O PE TECHNIQUE: CTA CHEST W/WO CONTRAST Multiplanar Sagittal and Coronal images were obtained. CONTRAST: Isovue 370 VOLUME: 100 mL One or more dose reduction techniques were used (e.g., Automated exposure control, adjustment of the mA and/or kV according to patient size, use of iterative reconstruction technique). RADIATION DOSE SUMMARY: CTDlvol: 442.06 mGy DLP: 16.25 mGycm COMPARISON: None. FINDINGS: Lower neck: The thyroid gland is normal. There is no supraclavicular lymphadenopathy. Mediastinum: No abnormal masses or lymphadenopathy. Heart/thoracic aorta: The heart size is normal. There is no pericardial effusion. 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 There is no thoracic aortic aneurysm or aortic dissection. RV/LV Diameter Ratio: Normal. Pulmonary Vessels: There are no pulmonary emboli. The main pulmonary artery is normal in diameter. Esophagus: There is a small hiatal hernia. Upper Abdomen: There is calcific vascular disease of the visualized abdominal aorta. There is an infrarenal abdominal aortic aneurysm measuring 3.6 cm in AP dimension and 4.8 cm in transverse dimension. Only the proximal end of the aneurysm was imaged. The aneurysm has apparent saccular and fusiform components. 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 There is moderate dextroscoliosis of the thoracolumbar spine. The soft tissues of the chest wall are unremarkable. Airways, lungs and pleura: There is mild upper lobe predominant paraseptal emphysema. There is a linear scar in the superior segment of the lower lobe of the right lung. There is bilateral lower lobe bronchiectasis with pleural-based scarring or atelectasis in the posterior basilar segments of both lower lobes. There are small bilateral pleural effusions. CT/CTA Chest W/WO Contrast IMPRESSION: 1. No evidence of pulmonary emboli. 2. Airspace disease in both lung bases consistent with atelectasis or scarring . There are small bilateral pleural effusions. 3. Calcific vascular disease of the thoracoabdominal aorta and coronary arteri es. There is an infrarenal abdominal aortic aneurysm. 4. Other findings as noted. Reading Location: [id number]
== END | disposition home or self-care (01) ==
PROVIDERS: PCP Family Medicine; Referring Provider Family Medicine Geriatric Medicine; Visit Provider Family Medicine Geriatric Medicine
DX: Z03.89 Encounter for observation for other suspected diseases and conditions ruled out (principal)
CPT/HCPCS: 71275; Q9967

== ENCOUNTER 2025-06-17 14:23 | Day surgery (SDC) | payer MEDICARE, OTHER, SELFPAY ==
[2025-06-17] VITALS (9 sets, daily range): BP systolic 110–136; BP diastolic 53–70; PULSE 69–89; RESP 16; TEMP 36.6–37; O2SAT 94–97; BMI 24.1
[2025-06-17] MEDS: Lactated Ringers 1,000 ML 15 ML IV (14:43)
--- NOTE | 2025-06-17 14:56 | PCM.PRE.AN2 ---
ASA Classification* ASA Classification ASA Classification: 3 Assessment & Plan Anesthesia* Anesthesia Assessment Anesthesia Assessment: Discussed sedation and/or anesthesia options, risks, benefits, and alternatives with patient/parents/legal guardian/POA. Questions invited. The patient/parents/legal guardian/POA seems to understand and agrees to proceed with anesthesia plan. Reviewed the physical assessment, medical history, allergy history and patient home medications list prior to surgery/procedure/anesthetic and documented any changes. Performed airway and anesthesia risk assessments. Anesthesia Type Anesthesia Type: MAC History Source History Obtained from:: Patient and Chart Anesthesia Focused Assessment* Temperature: 97.9 F Pulse Rate: 69 Blood Pressure: 122/53 Respiratory Rate: 16 Pulse Ox: 94 Oxygen Delivery Method: Room Air Airway Assessment Mouth opens: >3 cm Mallampati Score: III Teeth Condition: Chipped/Broken Neck Range of motion (ROM): Full ROM Labs Anesthesia Preop lab: CBC WBC 6.3 K/mm3 (4.4-11.0) 06/17/25 05:25 06/17/25 RBC 3.16 M/mm3 (4.6-6.2) L 06/17/25 05:25 06/17/25 Hgb 10.4 g/dL (13.0-16.5) L 06/17/25 05:25 06/17/25 Hct 31.2 % (40-54) L 06/17/25 05:25 06/17/25 Plt Count 285 K/mm3 (150-450) 06/17/25 05:25 06/17/25 CHEMISTRY Potassium 5.0 mmol/L (3.3-5.1) 06/17/25 05:25 06/17/25 Sodium 131 mmol/L (133-145) L 06/17/25 05:25 06/17/25 BUN 20 mg/dL (4-19) H 06/17/25 05:25 06/17/25 Creatinine 0.64 mg/dL (0.70-1.20) L 06/17/25 05:25 06/17/25 Glucose 96 mg/dL (70-99) 06/17/25 05:25 06/17/25 POC Glucose 94 mg/dL (74-106) 06/15/25 05:50 06/15/25 COAG PT 13.8 SECONDS (11.7-14.9) 06/17/25 05:25 06/17/25 Pre-Assessment Diagnosis/Proposed Procedure Planned Operative Procedure(s): EGD Anesthesia History 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 When Was Last Pacemaker Check QUESTION #4 FULL TEXT: You/Your Family Experience fever (hyperthermia) with Anesthesia Last Oral Intake Last Oral intake: Last Oral Intake NPO since 00:00 06/17/25 14:38 Meds taken in AM with sips of Yes 06/17/25 14:38 water? Meds patient instructed to take am of surgery PONV PONV - cocoa bean roaster helper: PONV - cocoa bean roaster helper Female No 06/16/25 15:44 HX of Motion Sickness No 06/16/25 15:44 HX of N/V After Surgery No 06/16/25 15:44 Non-Smoker Yes 06/16/25 15:44 Duration of Surgery greater No 06/16/25 15:44 than 60 minutes Number of Risk Factors 1 06/16/25 15:44 PONV Score Low Risk 06/16/25 15:44 Height & Weight Height & Weight: Anesthesia: Height & Weight Height 5 ft 6 in 06/17/25 14:38 Weight: 67.9 kg 06/17/25 14:38 Body Mass Index (BMI) 24.1 06/17/25 14:38 Respiratory Assessment Respiratory Assessment - cocoa bean roaster helper: Respiratory Tract Infection Hx - cocoa bean roaster helper Hx Respiratory Tract Infection No 06/16/25 15:44 STOP Sleep Apnea STOP Sleep Apnea - cocoa bean roaster helper: STOP Sleep Apnea - cocoa bean roaster helper Hx Hypertension Yes 06/16/25 15:44 Hx Sleep Apnea Yes 06/16/25 15:44 CPAP No 06/16/25 15:44 BIPAP No 06/16/25 15:44 Do you snore loudly (louder than talking or can be heard Do you often feel tired/ fatigued/ sleepy during daytime? Has anyone observed you stop breathing during sleep? STOP Results Positive 06/16/25 15:44 QUESTION #5 FULL TEXT : Do you snore loudly (louder than talking or can be heard through closed doors)? 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 Specify any problems Hx of Preganancy in last 3 N/A 06/16/25 15:44 Months Nurse Filling Out Transfusion [id number] 06/16/25 15:44 & Questions: Date: 06/16/25 06/16/25 15:44 Time: 15:48 06/16/25 15:44 Patient unable to answer at this time (ie. confused, unrespo /Reproduction History /Reproductive History - cocoa bean roaster helper: /Reproductive Hx- cocoa bean roaster helper Hx Now Gestational Age (in weeks): EDC: Hx Hx Para Hx Section SAB Active Medications Active Medications: Current Medications Generic Name Dose Route Start Last Admin Trade Name Freq PRN Reason Stop Dose Admin Lactated Ringer's 1,000 mls @ 15 mls/hr 06/17/25 14:30 06/17/25 14:43 IV 15 mls/hr .Q48H KIKA Administration PFSH Medical History Former smoker Wears hearing aid Easy bruising Cardiology follow-up encounter Dysphagia Hyperlipidemia Depression BPH (benign prostatic hyperplasia) TIA (transient ischemic attack) Coronary artery disease Carotid artery stenosis Osteoarthritis Essential (primary) hypertension GERD (gastroesophageal reflux disease) Sacral fracture Bilateral pubic rami fractures SAH (subarachnoid hemorrhage) SDH (subdural hematoma) Orbital roof fracture Orbital floor fracture Debility Home Medications ?Medication ?Instructions ?Recorded ?Last Taken ?Type acetaminophen 325 mg capsule 650 mg feeding tube Q6H Pain 05/20/25 06/17/25 History alfuzosin 10 mg tablet,extended 10 mg PO DAILY BPH 05/20/25 Unknown History release 24 hr amitriptyline 10 mg tablet 10 mg feeding tube QHS Mood 05/20/25 Unknown History amlodipine 5 mg tablet 5 mg feeding tube DAILY BP 05/20/25 06/17/25 History aspirin 81 mg tablet 81 mg PO DAILY Heart 05/20/25 Unknown History benazepril 40 mg tablet 40 mg feeding tube DAILY BP 05/20/25 06/16/25 History bisacodyl 5 mg tablet 5 mg PO DAILY PRN constipation 05/20/25 Unknown History cholecalciferol (vitamin D3) 125 125 mcg feeding tube DAILY 05/20/25 05/20/25 10:20 History mcg (5,000 unit) tablet Supplement cyanocobalamin (vitamin B-12) 1,000 mcg PO DAILY Supplement 05/20/25 05/20/25 10:25 History 1,000 mcg capsule escitalopram oxalate 5 mg tablet 5 mg feeding tube DAILY Mood 05/20/25 06/17/25 History folic acid 1 mg tablet 2 mg feeding tube DAILY Supplement 05/20/25 Unknown History methotrexate sodium 5 mg tablet 20 mg feeding tube QWEEK Arthritis 05/20/25 Unknown History (Trexall) metoprolol tartrate 25 mg tablet 25 mg feeding tube BID BP 05/20/25 06/17/25 History omeprazole 40 mg capsule,delayed 40 mg PO DAILY GERD 05/20/25 Unknown History release ondansetron HCl 4 mg tablet 4 mg feeding tube Q8H PRN nausea 05/20/25 Unknown History and vomiting oxycodone 5 mg tablet 5 mg feeding tube Q4H PRN pain 05/20/25 Unknown History (scale score 7-10) pantoprazole 40 mg tablet,delayed 40 mg PO DAILY GERD 05/20/25 Unknown History release polyethylene glycol 3350 17 17 g feeding tube DAILY 05/20/25 Unknown History gram/dose oral powder (Miralax) Constipation pravastatin 40 mg tablet 40 mg feeding tube QHS Cholesterol 05/20/25 Unknown History sennosides 8.6 mg tablet (Senokot) 8.6 mg PO QHS Constipation 05/20/25 Unknown History vitamins A,C,E-wlop-wbfncd 4,296 1 cap PO DAILY Eye Vitamin 05/20/25 Unknown History mcg-226 mg-90 mg capsule (Healthy Eyes SuperVision) doxazosin 4 mg tablet (Cardura) 4 mg PO QHS 05/25/25 06/16/25 History lactose-reduced food-fiber 0.07 See Rx Instructions feeding tube 05/25/25 Unknown History gram-1.5 kcal/mL liquid for tube .COMPLEX feed (Isosource 1.5 Esvin) menthol 0.44 %-zinc oxide 20.6 % 1 applic topical BID 05/25/25 Unknown History topical ointment (CalaSoothe) Allergy/AdvReac Type Severity Reaction Status Date / Time No Known Allergies Allergy Verified 06/17/25 14:33 Family History Mother Hypertension Hyperlipidemia, unspecified Osteoarthritis Hearing loss Vision loss Father Heart disease Pneumonia CVA (cerebral vascular accident) Hearing loss Suicide attempt Surgical History History of wisdom tooth extraction History of vasectomy History of tonsillectomy and adenoidectomy History of total hip arthroplasty History of shoulder surgery History of hernia repair History of colonoscopy History of circumcision History of cataract surgery History of cardiac catheterization Social History household members: spouse Smoking Status: Former smoker alcohol intake: never substance use type: does not use Review of Systems (Anesthesia) ROS Narrative System reviewed and no additional complaints, except as documented.
--- NOTE | 2025-06-17 15:49 | HP.PCM_ITS ---
HPI - General General Date of Admission: 06/17/25 Date of Service: 06/17/25 HPI Narrative FAWN YEPEZ, is a 89 M who presentsReason for Consultation: Ongoing dysphagia and abnormal swallowing study HPI Narrative: 89 year old male with below past medical history hospitalized for SDH, SAH, multiple traumatic fractures, complicated by dysphagia requiring dobbhoff TF, admitted to TCU with debility. I was consulted to see him due to his inability to swallow safely and need for placement of PEG tube. A PEG tube was placed. He recently underwent a repeat video swallow and was discovered to have problems at the level of the upper esophageal sphincter in decreased clearance of liquids once and into the esophagus. He has been having problems with dysphagia, coughing, and a wet, gurgly vocal quality following meals * Video Swallow Study (VFSS):?Shows poor upper esophageal sphincter (UES) opening during swallowing. * Oral Phase:?Noted to be intact and within functional limits. * Pharyngeal Phase: * Initiation of swallow is delayed, with bolus pooling in the pharyngeal and pyriform sinuses. * Hyolaryngeal excursion (upward and forward movement) is reduced, contributing to the poor UES opening. * Following the swallow, significant residue is observed in the pharyngeal area. * Airway Protection:?Penetration and trace aspiration are observed with thin liquids due to UES dysfunction and residual pooling. * Esophageal Phase:?The limited view of the esophageal phase shows possible poor motility, but a full evaluation is warranted. [facility] Medical History Former smoker Wears hearing aid Easy bruising Cardiology follow-up encounter Dysphagia Hyperlipidemia Depression BPH (benign prostatic hyperplasia) TIA (transient ischemic attack) Coronary artery disease Carotid artery stenosis Osteoarthritis Essential (primary) hypertension GERD (gastroesophageal reflux disease) Sacral fracture Bilateral pubic rami fractures SAH (subarachnoid hemorrhage) SDH (subdural hematoma) Orbital roof fracture Orbital floor fracture Debility Home Medications ?Medication ?Instructions ?Recorded ?Last Taken ?Type acetaminophen 325 mg capsule 650 mg feeding tube Q6H P ain 05/20/25 06/17/25 History alfuzosin 10 mg tablet,extended 10 mg PO DAILY BPH Unknown History release 24 hr amitriptyline 10 mg tablet 10 mg feeding tube QHS Mood 05/20/25 Unknown History amlodipine 5 mg tablet 5 mg feeding tube DAILY BP 0 05/20/25 06/17/25 History aspirin 81 mg tablet 81 mg PO DAILY Heart 5 Unknown History benazepril 40 mg tablet 40 mg feeding tube DAILY BP 05/20/25 06/16/25 History bisacodyl 5 mg tablet 5 mg PO DAILY PRN constipati on 05/20/25 Unknown History cholecalciferol (vitamin D3) 125 125 mcg feeding tube DAILY 05/20/25 05/20/25 10:20 History mcg (5,000 unit) tablet Supplement cyanocobalamin (vitamin B-12) 1,000 mcg PO DAILY Suppl ement 05/20/25 05/20/25 10:25 History 1,000 mcg capsule escitalopram oxalate 5 mg tablet 5 mg feeding tube ELIN LY Mood 05/20/25 06/17/25 History folic acid 1 mg tablet 2 mg feeding tube DAILY Supp lement 05/20/25 Unknown History methotrexate sodium 5 mg tablet 20 mg feeding tube QWE EK Arthritis 05/20/25 Unknown History (Trexall) metoprolol tartrate 25 mg tablet 25 mg feeding tube BI D BP 05/20/25 06/17/25 History omeprazole 40 mg capsule,delayed 40 mg PO DAILY GERD 0 05/20/25 Unknown History release ondansetron HCl 4 mg tablet 4 mg feeding tube Q8H PRN nausea 05/20/25 Unknown History and vomiting oxycodone 5 mg tablet 5 mg feeding tube Q4H PRN pa in 05/20/25 Unknown History (scale score 7-10) pantoprazole 40 mg tablet,delayed 40 mg PO DAILY GERD 05/20/25 Unknown History release polyethylene glycol 3350 17 17 g feeding tube DAILY Unknown History gram/dose oral powder (Miralax) Constipation pravastatin 40 mg tablet 40 mg feeding tube QHS Vivian sterol 05/20/25 Unknown History sennosides 8.6 mg tablet (Senokot) 8.6 mg PO QHS Const ipation 05/20/25 Unknown History vitamins A,C,V-dnqk-cjhwfs 4,296 1 cap PO DAILY Eye Vi tamin 05/20/25 Unknown History mcg-226 mg-90 mg capsule (Healthy Eyes SuperVision) doxazosin 4 mg tablet (Cardura) 4 mg PO QHS 05/25/25 0 06/16/25 History lactose-reduced food-fiber 0.07 See Rx Instructions fe eding tube 05/25/25 Unknown History gram-1.5 kcal/mL liquid for tube .COMPLEX feed (Isosource 1.5 Esvin) menthol 0.44 %-zinc oxide 20.6 % 1 applic topical BID 05/25/25 Unknown History topical ointment (CalaSoothe) Allergy/AdvReac Type Severity Reaction Status Date / Time No Known Allergies Allergy Verified 06/17/25 14:33 Family History Mother Hypertension Hyperlipidemia, unspecified Osteoarthritis Hearing loss Vision loss Father Heart disease Pneumonia CVA (cerebral vascular accident) Hearing loss Suicide attempt Surgical History History of wisdom tooth extraction History of vasectomy History of tonsillectomy and adenoidectomy History of total hip arthroplasty History of shoulder surgery History of hernia repair History of colonoscopy History of circumcision History of cataract surgery History of cardiac catheterization Social History household members: spouse Smoking Status: Former smoker alcohol intake: never substance use type: does not use ROS Constitutional Constitutional: Denies fatigue, fever(s), poor appetite, weight gain or weight loss Gastrointestinal Gastrointestinal: Denies belching, bloating, change in bowel habits, change in stool character, chewing difficulty, coffee ground emesis, constipation, cramping, diarrhea, dyspepsia, dysphagia, early satiety, excessive flatus, fecal incontinence, heartburn, hematemesis, hematochezia, hemorrhoids, loose stools, melena, nausea, odynophagia, rectal bleeding, tenesmus, vomiting or weight changes Vital Signs Vital Signs Vital Signs: 06/17/25 14:38 06/17/25 14:38 06/17/25 14:56 Temperature 97.9 F 97.9 F Temperature Source Temporal Pulse Rate 69 69 Respiratory Rate 16 16 Respiratory Pattern Normal Blood Pressure 122/53 H 122/53 H Blood Pressure Mean 76 Blood Pressure Source Monitor Blood Pressure Position Semi-Fowlers Blood Pressure Location Left Arm Pulse Ox 94 94 Oxygen Delivery Method Room Air Room Air Weight Weight: 149 lb 11.102 oz Body Mass Index (BMI) 24.1 Physical Exam Const alert, oriented x3, no apparent distress and healthy appearing General Appearance: cooperative GI normal to inspection, nondistended, normoactive bowel sounds, soft to palpation, non-tender and non-distended Percussion: normal to percussion Rectal Exam: deferred Assessment & Plan Assessment/Plan (1) Dysphagia: PLAN: The 89-year-old male is diagnosed with oropharyngeal dysphagia, specifically related to poor UES opening likely due to subarachnoid hemorrhage and subdural hematoma. He has reduced hyolaryngeal excursion, which is a common age-related change, is a primary biomechanical cause. His advanced age also places him at a higher risk for silent aspiration, a severe complication of dysphagia where aspiration occurs without a cough or other sign of distress. The patient will be managed very well with a combination of compensatory strategies, strengthening exercises, and nutritional support. He may need esophageal manometry or repeat endoscopy to rule out other esophageal issues such as achalasia, strictures, or diverticulum. So the plan will be for him to have repeat upper endoscopy on 06/17/2025. Please hold his tube feedings at midnight on 06/16/2025.
[2025-06-17] MEDS: Lidocaine 1% (5 ml sdv) 5 ML Vial 10 ML IV (16:06)
[2025-06-17] MEDS: 0.9% Normal Saline (Pres. free 10 ML Vial (16:13)
--- NOTE | 2025-06-17 16:36 | PCM.POST.ANE ---
Anesthesia: Postop Eval I Current Vital Signs Temperature: 98.1 F Pulse Rate: 79 Blood Pressure: 110/65 Respiratory Rate: 16 Pulse Ox: 95 Assessment Airway patent: Yes Spontaneous unlabored respirations: Yes nausea: No Vomiting: No Anesthesia Complication: No Fluid Hydration Crystalloid volume administer (ml): 500 Total IV fluid infused: 500 Progress Note Anesthesia document: Postop Eval 1 completed: Yes
--- NOTE | 2025-06-17 16:50 | OP.PROVAT_ITS ---
06/17/2025 Devan Welch Re : Upper GI endoscopy procedure for Jona Cameron Dear Yuri This procedure was performed on Tuesday, June 17, 2025. My impressions and recommendations are as follows: Impressions : - Abnormal esophageal motility, established achalasia. Dilated. Injected with botulinum toxin. - Intact gastrostomy with a patent G-tube present. - No gross lesions in the entire examined duodenum. - No specimens collected. Recommendations : - Discharge patient to a fpc. - Resume previous diet. - Continue present medications. My findings are described in the full procedure note, which is enclosed. If I can be of further assistance, please feel free to contact me at . Sincerely, Stan Ferrara, 06/17/2025 4:50:01 PM This report has been signed electronically.
--- NOTE | 2025-06-17 16:50 | OP.EGD_ITS ---
Patient Name: Jona Cameron Procedure Date: 06/17/2025 3:54 PM Date of : 1935 Age: 89 Procedure: Upper GI endoscopy Indications: Dysphagia Providers: Stan Ferrara DO Medicines: Monitored Anesthesia Care Patient Profile: This is an 89 year old male. Refer to note in patient chart for documentation of history and physical. Patient has symptoms of dysphagia with both liquids and solids. Complications: No immediate complications. Procedure: Pre-Anesthesia Assessment: - Prior to the procedure, a History and Physical was performed, and patient medications and allergies were reviewed. The patient is competent. The risks and benefits of the procedure and the sedation options and risks were discussed with the patient. All questions were answered and informed consent was obtained. Patient identification and proposed procedure were verified by the physician in the pre-procedure area. Mental Status Examination: alert and oriented. Airway Examination: normal oropharyngeal airway and neck mobility. Respiratory Examination: clear to auscultation. CV Examination: normal. Prophylactic Antibiotics: The patient does not require prophylactic antibiotics. Prior Anticoagulants: The patient has taken no anticoagulant or antiplatelet agents except for NSAID medication. ASA Grade Assessment: II - A patient with mild systemic disease. After reviewing the risks and benefits, the patient was deemed in satisfactory condition to undergo the procedure. The anesthesia plan was to use monitored anesthesia care (MAC). Immediately prior to administration of medications, the patient was re-assessed for adequacy to receive sedatives. The heart rate, respiratory rate, oxygen saturations, blood pressure, adequacy of pulmonary ventilation, and response to care were monitored throughout the procedure. The physical status of the patient was re-assessed after the procedure. After obtaining informed consent, the endoscope was passed under direct vision. Throughout the procedure, the patient's blood pressure, pulse, and oxygen saturations were monitored continuously. The Endoscope was introduced through the mouth, and advanced to the second part of duodenum. The upper GI endoscopy was accomplished without difficulty. The patient tolerated the procedure well. Scope In: 4:07:36 PM Scope Out: 4:18:21 PM Total Procedure Duration Time 0 hours 10 minutes 45 seconds Findings: Abnormal motility was noted at the cricopharyngeus and in the upper third of the esophagus. The cricopharyngeus was abnormal. There is a decrease in motility of the esophageal body. The distal esophagus/lower esophageal sphincter is spastic, but gives up passage to the endoscope. Secondary peristaltic waves are noted. A guidewire was placed and the scope was withdrawn. Dilation was performed with a Savary dilator with no resistance at 60 Fr. Area was successfully injected with 70 units botulinum toxin. There was evidence of an intact gastrostomy with a patent G-tube present in the gastric body. No gross lesions were noted in the entire examined duodenum. Impression: - Abnormal esophageal motility, established achalasia. Dilated. Injected with botulinum toxin. - Intact gastrostomy with a patent G-tube present. - No gross lesions in the entire examined duodenum. - No specimens collected. Recommendation: - Discharge patient to a [place] [facility]. - Resume previous diet. - Continue present medications. Procedure Code(s): --- Professional --- 25248, Esophagogastroduodenoscopy, flexible, transoral; with insertion of guide wire followed by passage of dilator(s) through esophagus over guide wire 51822, 59,51, Esophagogastroduodenoscopy, flexible, transoral; with directed submucosal injection(s), any substance CPT copyright 2021 [employer]. All rights reserved. The codes documented in this report are preliminary and upon wood milling machine operator review may be revised to meet current compliance requirements. Stan Ferrara DO 06/17/2025 4:50:01 PM This report has been signed electronically. Number of Addenda: 0 Note Initiated On: 06/17/2025 3:54 PM
== END 2025-06-17 17:39 | disposition home or self-care (01) ==
LOC: EN 14:24 → AC 14:24
PROVIDERS: PCP Family Medicine; Referring Provider Family Medicine; Visit Provider Internal Medicine Gastroenterology
PROC: 0DJ08ZZ Inspection of Upper Intestinal Tract, Via Natural or Artificial Opening Endoscopic (ICD-10-PCS; CPT 43235; principal; 2025-06-17 15:40)
DX: K22.0 Achalasia of cardia (principal); Z93.1 Gastrostomy status; K21.9 Gastro-esophageal reflux disease without esophagitis; I10 Essential (primary) hypertension; Z79.82 Long term (current) use of aspirin; Z79.899 Other long term (current) drug therapy; Z87.891 Personal history of nicotine dependence
CPT/HCPCS: 43248; 43236; A4216; C1769; J0585

== ENCOUNTER → 2025-07-14 | Outpatient (CLI) | payer MEDICARE, OTHER, SELFPAY ==
--- NOTE | 2025-07-14 16:34 | CT_ITS ---
PROCEDURE: BRAIN/HEAD WITHOUT CONTRAST 07/14/2025 REASON FOR EXAM: FALL WITH HEAD STRIKE TECHNIQUE: Procedure Code: CTBR Modality: CT Procedure: BRAIN/HEAD WITHOUT CONTRAST Coronal and Sagittal reconstruction series were provided. One or more dose reduction techniques were used (e.g., Automated exposure control, adjustment of the mA and/or kV according to patient size, use of iterative reconstruction technique. RADIATION DOSE SUMMARY: DLP: 830 mGycm COMPARISON: 05/21/2025 FINDINGS: There is no acute infarct, intracranial hemorrhage, or mass effect. There is no hydrocephalus or significant midline shift. There is moderate to severe chronic microvascular ischemic changes and moderate parenchymal volume loss. No acute, depressed calvarial fractures. No large scalp hematomas. The paranasal sinuses are clear. Bilateral lens surgeries. CT/Brain/Head without Contrast IMPRESSION: No acute intracranial process. Reading Location: [id number]
== END | disposition home or self-care (01) ==
PROVIDERS: PCP Family Medicine; Referring Provider Family Medicine Geriatric Medicine; Visit Provider Family Medicine Geriatric Medicine
DX: S09.90XA Unspecified injury of head, initial encounter (principal); W19.XXXA Unspecified fall, initial encounter
CPT/HCPCS: 70450

== ENCOUNTER 2025-08-09 15:50 | Inpatient (IN) | payer MEDICARE, OTHER, SELFPAY ==
--- OUTSIDE RECORDS SUMMARY | 2025-08-09 16:14 | XMS RPT_ITS | CCD ---
Author Organization [facility] CliniSyor Care Team Providers Care Wheat Farmer Name Role Phone Don Barrera Unavailable [phone] Don Barrera Primary Care Provider Vijay Viveros Unavailable VIJAY VIVEROS Referring Unavailab le DON BARRERA Primary Care Unavaila GLORIA Herr Attending Unavailable DON BARRERA Primary Care Unavaila ble Don Barrera Unavailable Unavailable Alok Barreraopher Cande Unavailable Unavailable Leonardo Ballesteros Unavailable Unavailable Robb Colindres Unavailable Unavailable Chandler, Kelli Unavailable Unavailable Callaway, Dina Unavailable Unavailable Cecy Linn Unavailable Unavailable Gracie Quezada Unavailable Unavailable LuechtDioni Unavailable Unavailable Barrera Christopher D Unavailable Unavailable [facility] NURSE, [id number] Unavailable Unavailable Colindres II, Robb Unavailable Unavailable Melody Joseph Unavailable Unavailable Gracie Al Unavailable Unavailable Dew, Santy Unavailable Unavailable Christo, Martine Unavailable Unavailable HEATHER PAREDES Admitting Unavailable HEATHER PAREDES Referring Unavailable DON BARRERA Primary Care Unavaila ble Don Barrera Unavailable Unavailable Don Barrera Primary Care Provider Vijay Viveros Unavailable Don Barrera MD Unavailable Unavailable Don Barrera Unavailable Unavailable Leonardo Ballesteros Unavailable Unavailable Robb Colindres Unavailable Unavailable BarreraAlokopher D Unavailable Unavailable Unavailable Don Barrera MD Primary Care Provider Vijay Viveros MD Unavailable Vijay Viveros MD Unavailable Vijay Viveros MD Unavailable Unavailable Unavailable Don Barrera MD Primary Care Provider Vijay Viveros MD Unavailable Don Barrera Unavailable Heike Adams Unavailable Unavailable Otoniel Salcedo Unavailable Unavailable Don Barrera MD Primary Care Provider Vijay Viveros MD Unavailable Don Barrera MD Primary Care Provider Don Barrera MD Primary Care Provider [phone] Don Barrera MD Unavailable [phone] Yuri, Dr. Don Chaudhry Primary Care Unav ailable Yuri, Dr. Don Chaudhry Attending Omairav coral Adams, Ms. Heike Dickens Attending Donnie Barrera, Dr. Don Chaudhry Primary Care Unav ailmaisha Barrera, Dr. Don Chaudhry Primary Care Unav coral Cotto, Dr. Earle Reyes Attending Unavaila ble Angie, Ms. Heike Dickens Attending Donnie Barrera, Dr. Don Chaudhry Primary Care Unav Don Alexander MD Unavailable [phone] Don Barrrea MD Primary Care Provider [phone] Howard Soria OD Unavailable Don Barrera MD Primary Care Provider Don Barrera MD Unavailable Don Barrera MD Primary Care Provider Don Barrera MD Primary Care Provider [phone] DELTA BANGURA Attending Unavailable DELTA BANGURA Referring Unavailable DON BARRERA Primary Care Unavaila Don Castillo MD Unavailable [phone] Don Barrera MD Primary Care Provider [phone] SANCHO JR., ELADIO Attending Unavailable BARRERA, SACRAMENTO GRACIE Primary Care Unavaila ble BARRERA, [facility] Primary Care Unavaila ble SANCHO JR., ELADIO Attending Unavailable BARRERA, SACRAMENTO GRACIE Primary Care Unavaila ble SANCHO JR., ELADIO Attending Unavailable BARRERA, SACRAMENTO GRACIE Primary Care Unavaila ble SANCHO JR., ELADIO Attending Unavailable TEEPLES, LINCOLN ILIANA Attending Unavailable TEEPLES, LINCOLN ILIANA Admitting Unavailable BARRERA, SACRAMENTO GRACIE Primary Care Unavaila ble Barrera , Dr. Hartman Primary Care Provider Feliciano SEVILLA, Dr. Jesus Alberto Pereira Admit Provider Feliciano SEVILLA, Dr. Jesus Alberto Pereira Attending Provider Feliciano SEVILLA, Dr. Jesus Alberto Pereira Referring Provider Yuri SEVILLA, Dr. Hartman Referring Provider Friend , Dr. Pierce Attending Provider Josias MEDINA, Dr. Pierce Other Provider [phone] Feliciano SEVILLA, Dr. Jesus Alberto Pereira Other Provider Daryl Dyson Unavailable Unavailable Feliciano, Jesus Alberto Chi Referring Unavailable Belal, Farouk Attending Unavailable Barrera, Devan Primary Care Unavailable Friend, Stan Consulting Unavailable Friend, Stan Attending Unavailable Barrera, Devan Referring Unavailable Barrera, Devan Primary Care Unavailable Barrera, Devan Primary Care Unavailable Friend, Stan Consulting Unavailable Friend, Stan Attending Unavailable Barrera, Devan Referring Unavailable Friend, Stan Attending Unavailable Barrera, Devan Referring Unavailable Barrera, Devan Primary Care Unavailable Feliciano, Jesus Alberto Chi Admitting Unavailable Feliciano, Jesus Alberto Chi Attending Unavailable Feliciano, Jesus Alberto Chi Referring Unavailable Barrera, Devan Primary Care Unavailable Feliciano, Jesus Alberto Chi Attending Unavailable Feliciano, Jesus Alberto Chi Referring Unavailable Barrera, Devan Primary Care Unavailable Barrera, Devan Primary Care Unavailable Feliciano, Jesus Alberto Chi Attending Unavailable Feliciano, Jesus Alberto Chi Referring Unavailable Feliciano, Jesus Alberto Chi Attending Unavailable Feliciano, Jesus Alberto Chi Referring Unavailable Barrera, Devan Primary Care Unavailable FriendStan Attending Unavailable Barrera, Devan Primary Care Unavailable Barrera, Devan Referring Unavailable Barrera, Devan Primary Care Unavailable Feliciano, Jesus Alberto Chi Admitting Unavailable Feliciano, Jesus Alberto Chi Consulting Unavailable FriendStan Attending Unavailable Feliciano, Jesus Alberto Chi Referring Unavailable Barrera , Dr. Hartman Primary Care Physician Feliciano SEVILLA, Dr. Jesus Alberto Pereira Admitting Physician Feliciano SEVILLA, Dr. Jesus Albetro Pereira Attending Physician Friend , Dr. Pierce Attending Physician Josias MEDINA, Dr. Pierce Nurse Practitioner Feliciano SEVILLA, Dr. Jesus Alberto Pereira Nurse Practitioner Emily SEVILLA, Dr. Chi Attending Physician BARRERA, CHRISTOPHER D Attending Unavailable BARRERA, CHRISTOPHER [...] CHRISTOPHER D Primary Care Unavailable LINCOLN KING E Attending Unavailable CHRISTINELINCOLN E Referring Unavailable BARRERA, CHRISTOPHER D Primary Care Unavailable BARRERA, CHRISTOPHER D Referring Unavailable BARRERA, CHRISTOPHER D Primary Care Unavailable BARRERA, CHRISTOPHER D Referring Unavailable BARRERA, CHRISTOPHER D Primary Care Unavailable BARRERA, CHRISTOPHER D Primary Care Unavailable SANTIAGO MENENDEZ Attending Unavailable BARRERA, CHRISTOPHER D Primary Care Unavailable SANTIAGO MENENDEZ Attending Unavailable BARRERA, CHRISTOPHER D Primary Care Unavailable BARRERA, CHRISTOPHER D Primary Care Unavailable BARRERA, CHRISTOPHER D Primary Care Unavailable SANTIAGO MENENDEZ Referring Unavailable BARRERA, CHRISTOPHER D Primary Care Unavailable FATOU ADORNO Consulting Unavailable KRISTY GRIALDO Admitting Unavailable RUSSELL MONTOYA Attending Unavailable LEONARDO BERGER Referring Unavailable DON BARRERA Primary Care Unavailable SANTIAGO MENENDEZ Referring Unavailable DON BARRERA Primary Care Unavailable DON BARRERA Primary Care Unavailable SANTIAGO MENENDEZ Referring Unavailable CHICO NAVARRO Consulting Unavailable VIJAY MARK Admitting Unavailable VIJAY MARK Attending Unavailable Don Barrera MD Unavailable Don Barrera MD Primary Care Provider [phone] Daryl Dyson Unavailable Unavailable Medications Current Medications Medication Drug Class(es) Dates Sig (Normalized) Sig (Original) acetaminophen 325 mg oral tablet (20 sources) Start: 08-09-2025 take 3 tablets by mouth every eight hours acetaminophen (Tylenol) 325 mg tablet Indications: Head injury, initial encounter , Subdural hemorrhage (Multi) Take 3 tablets (975 mg) by mouth every 8 hours. 08/09/2025 Active Start: 08-04-2025 take 1 tablet by miquel every eight hours 975 mg, oral, Every 8 hours, First dose on Sun08/04/25 at 2215, If ordered PRN for pain, nurse is permitted to administer this medication for higher pain scores based on patient preference? Yes Start: 07-10-2025 take 2 tablets by mo [facility] every eight hours Start: 05-20-2025 End: 08-09-2025 acetaminophen (Tylenol) 325 mg tablet Indications: Fall, initial encounter , Open fracture of roof of right orbit, initial encounter (Multi) 2 tablets (650 mg) by nasogastric tube route every 6 hours. 05/20/2025 08/09/2025 Discontinued (Stop Taking at Discharge) Start: 05-20-2025 End: 07-10-2025 Acetaminophen 325 mg capsule Discontinued 650 mg feeding tube EVERY 6 HOURS May 20, 2025 12:00am July 10, 2025 3:07pm Pain Start: 05-11-2025 End: 05-16-2025 650 mg, nasoduodenal [...] scheduled, First dose on Sun09/10/19 at 1600 End: 08-09-2025 take 1000 mg by mouth every six hours acetaminophen 500 mg powder in packet Take 1,000 mg by mouth every 6 hours. 08/09/2025 Discontinued (Stop Taking at Discharge) take 3000 [IU] by mo [facility] once daily ACETAMINOPHEN (TYLENOL EXTRA STRENGTH ORAL) [...] tablet by miquel one time a week. amitriptyline hydrochloride 10 mg oral tablet (20 sources) Tricyclic Antidepressant Start: 01-10-20 24 End: 07-31-20 26 take 1 tablet by mouth once daily at bedtime amitriptyline (Elavil) 10 mg tablet Indications: Migraine with visual aura Take 1 tablet (10 mg) by mouth once daily at bedtime. 90 tablet 3 07/31/2025 07/31/2026 Active amoxicillin 875 mg oral tablet (3 sources) Penicillin-class Antibacterial Start: 09-01-20 End: 09-12-20 take 1 tablet by mouth twice daily [...] Start : 04-Nov-2021 End : 15-Nov-2021 Complete ascorbic acid 226 mg / beta carotene 55396 unt / cuprous oxide 0.8 mg / dl-alpha tocopheryl acetate 200 unt / zinc oxide 34.8 mg oral capsule (2 sources) Vitamin C Start: 05-20-2025 aspirin 81 mg oral tablet (20 sources) Nonsteroidal Anti-inflammatory Drug Start: 05-20-2025 take 1 tablet by mouth once daily Start: 05-17-2025 take 81 mg by mouth [...] daily. Active take 1 tablet by miquel once daily aspirin 325 mg oral delayed release tablet ; 1 tab(s) orally once a day Quantity: 0 Refills: 0 Ordered: 23-Sep-2022 Paige Chicas Generic Substitution Allowed Aspirin 81 MG TA [...] Angiotensin Converting Enzyme Inhibitor Start: 09-08-20 End: 07-31-20 26 take 1 tablet by mouth once daily benazepril (Lotensin) 40 mg tablet Indications: Hypertension, unspecified type Take 1 tablet (40 mg) by mouth once daily. 90 tablet 3 07/31/2025 07/31/2026 Active take 2 tablets by mouth once sid ly benazepril 20 mg oral tablet ; 2 tab(s) orally once a day Quantity: 0 Refills: 0 Ordered: 12-Apr-2020 Mily Amado Generic Substitution Allowed Comment on above: 40 mg every morning. Carboxymethylcellulose (3 sources) take 1 drop(s) into the eye(s) twice daily CARBOXYMETHYLCELLULOSE SODIUM (REFRESH TEARS OPHTHALMIC) Use 1 Drop in eyes twice daily. Both eyes 0 Active Comment on above: Use 1 Drop in eyes t wice daily. Both eyes cholecalciferol 0.025 mg oral tablet (16 sources) Vitamin D Start: 2024 take 125 ug by mouth once daily 125 mcg, oral, Daily, First dose on Sun08/05/25 at 0900 Start: 07-10-2025 take 1 capsule by mo [facility] once daily Start: 05-20-2025 End: 07-10-2025 take 1 tablet by mouth once daily [...] Fi rst dose on Sun05/13/25 at 1100 cholestyramine resin 4000 mg powder for oral suspension (2 sources) Bile Acid Sequestrant Start: 07-10-2025 chondroitin sulfates 400 mg / glucosamine hydrochloride 500 mg oral tablet (20 sources) End: 05-09-2021 take 1 tablet by mouth three times daily glucosamine-chond roitin 500-400 mg tablet Take 1 tablet by mouth 3 (three) times a day . 0 05/09/2021 Discontinued dexamethasone 1 mg/ml / neomycin 3.5 mg/ml / polymyxin b 36109 unt/ml ophthalmic suspension (2 sources) Aminoglycoside Antibacterial, Polymyxin-class Antibacterial, Corticosteroid Start: 08-09-2025 End: 08-16-2025 take 1 drop(s) into the eye(s) twice daily neomycin-polymyxi n-dexAMETHasone (Maxitrol) 3.5mg/mL-10,000 unit/mL-0.1 % ophthalmic suspension Indications: Head injury, initial encounter Administer 1 drop into the right eye 2 times a day for 14 doses. 08/09/2025 08/16/2025 Active Start: 08-09-2025 End: 08-16-2025 take 1 drop(s) into the eye(s) twice daily 1 drop, Right Eye, 2 times daily, First dose on Sun08/09/25 at 1400, For 7 days docusate sodium 50 mg / sennosides, skilled nursing 8.6 mg oral tablet (3 sources) Start: 08-04-2025 take 2 tablets by mouth twice daily sennosides-docusate sodium (Griselda-Colace) 8.6-50 mg tablet Indications: Head injury, initial encounter , Subdural hemorrhage (Multi) Take 2 tablets by mouth 2 times a day. 08/09/2025 Active Start: 09-10-2019 End: 09-11-2019 take 1 tablet by mouth twice daily 1 tablet, Oral, 2 times daily, First dos e on Sun09/10/19 at 2100 NOT for abdominal surgery patients. Hold for loose stools. Do Not Crush or Chew if administering orally due to bitter taste. May be crushed if given via tube. doxazosin 4 mg oral tablet (10 sources) alpha-Adrenergic Juan Start: 05-25-2025 End: 07-10-2025 take 1 tablet by mouth at bedtime doxycycline monohydrate 100 mg oral capsule (4 sources) Tetracycline-class Drug Start: 09-27-2023 End: 11-05-2023 take 1 capsule by mouth twice daily at mealtime doxycycline (Monodox) 100 mg capsule Take 1 capsule (100 mg) by mouth 2 times a day with food for 7 days 14 capsule 0 09/27/2023 11/05/2023 Discontinued (Med List Cleanup) 0.3 ml enoxaparin sodium 100 mg/ml prefilled syringe (9 sources) Low Molecular Weight Heparin Start: 08-07-2025 inject 30 mg by subcutaneous injection every twelve hours 30 mg, subcutaneous, Every 12 hours, First dose on Sun08/07/25 at 0700 Start: 05-21-2025 End: 06-20-2025 inject 0.3 mL by subcutaneous injection every twelve hours enoxaparin (Lovenox) 30 mg/0.3 mL syringe Indications: Fall, initial encounter , Open fracture of roof of right orbit, initial encounter (Multi) Inject 0.3 mL (30 mg) under the skin every 12 hours. 05/21/2025 06/20/2025 Active Start: 05-13-2025 End: 06-16-2025 Enoxaparin 30 mg/0.3 mL eliane ordonez Discontinued 30 mg SC Q12H May 20, 2025 12:00am June 16, 2025 3:52pm DVT prophylaxis escitalopram 10 mg oral tablet (20 sources) Serotonin Reuptake Inhibitor Start: 08-05-2025 take 5 mg by mouth once daily 5 mg, oral, Daily, First dose on Sun08/05/25 at 0900 Start: 11-19-2023 End: 07-31-2026 take 1 tablet by mouth once daily escitalopram (Lexapro) 5 mg tablet Indications: MARIANGEL (generalized anxiety disorder) Take 1 tablet (5 mg) by mouth once daily. 90 tablet 3 07/31/2025 07/31/2026 Active fluticasone propionate 0.05 mg/actuat metered dose [...] 1 mg oral tablet (20 sources) Start: 05-20-2025 End: 07-10-2025 take 2 tablets by mouth once daily Start: 10-06-2022 End: 07-31-2026 take 1 mg by mouth once daily 1 mg, oral, Daily, First dose on Sun08/05/25 at 0900 Start: 09-10-2019 End: 09-11-2019 take 2 mg by mouth once daily 2 mg, Oral, Daily, First dose on Sun09/10/19 at 1600 take 2 tablets by mo uth once daily folic acid 1 mg tablet Take 2 mg by mouth once daily. 0 Active take 1 mg by mouth twice daily F OLIC ACID ORAL Take 1 mg by mouth twice daily. 0 Active Comment on above: Take [...] Comment on above: 30 mg every morning. levETIRAcetam 500 mg oral tablet (6 sources) Start: 5 End: take 1 tablet by mouth twice daily levETIRAcetam (Keppra) 500 mg tablet Indications: Head injury, initial encounter , Subdural hemorrhage (Multi) Take 1 tablet (500 mg) by mouth 2 times a day. 08/09/2025 08/12/2025 Active Start: 08-04-2025 End: 08-05-2025 500 mg, intravenous, at 400 mL/hr, Administer over 15 Minutes, 2 times daily, First dose on Sun08/04/25 at 1435 Start: 05-16-2025 End: 05-17-2025 500 mg, nasoduodenal tube, 2 times daily, First dose on Sun05/16/25 at 0900, For 2 days Start: 05-14-2025 End: 05-16-2025 take 500 mg intravenously every twelve hours 500 mg, intravenous, at 400 mL/hr, Administer over 15 Minutes, Every 12 hours, First dose on Mesha 05/14/25 at 0715 Start: 05-11-2025 End: 05-14-2025 take 500 mg by mouth twice daily 500 mg, oral, 2 times daily, First dose (after last modification) on Sun05/11/25 at 0535, For 14 doses lidocaine hydrochloride 0.02 mg/mg topical gel (3 sources) Antiarrhythmic, Amide Local Anesthetic Start: 05-15-2025 1 Application, Topical, Once as needed, pain mild (1-3), first line, tube placement and maintenance, Starting on Sun05/15/25 at 1321, For 1 dose, Apply to affected area. Start: 10-24-2023 End: 10-24-2023 lidocaine 20 mg/mL (2 %) inj ection 3 mL lisinopril 5 mg oral tablet (3 sources) Angiotensin Converting Enzyme Inhibitor Start: 08-09-2025 take 1 tablet by mouth once daily lisinopril 5 mg tablet Indications: Head injury, initial encounter , Subdural hemorrhage (Multi) Take 1 tablet (5 mg) by mouth once daily. 08/09/2025 Active Start: 08-07-2025 take 5 mg by mouth once daily 5 mg, oral, Daily, First dose on Sun08/07/25 at 1230 Start: 09-10-2019 End: 09-11-2019 take 40 mg by mouth once daily at lunch 40 mg, Oral, Daily with lunch, First dose on Sun09/10/19 at 1600 menthol 0.0044 mg/mg / zinc oxide 0.206 mg/mg topical ointment (6 sources) Start: 05-25-2025 Start: 05-25-2025 Menthol-Zinc O xide (Calasoothe) 0.44-20.6 % ointment Active 1 NMA TOPICAL TWICE A DAY May 25, 2025 12:00am methotrexate 2.5 mg oral tab let (20 sources) Folate Analog Metabolic Inhibitor Start: 07-10-2025 Start: 05-20-2025 End: 07-10-2025 Methotrexate Sodium (Trexall ) 5 mg tablet Discontinued 20 mg feeding tube EVERY WEEK May 20, 2025 12:00am July 10, 2025 3:10pm Arthritis Start: 04-07-2020 take 8 tablets by [facility] every week methotrexate (Trexall) 2.5 mg tablet Take 8 tablets (20 mg total) by mouth 1 (one) time per week. On Sundays04/07/2020 Active Start: 04-07-2020 take 7 tablets by [facility] every week Methotrexate 2.5 MG Oral Tablet TAKE 7 TABLETS PER WEEK. Quantity: 0 Refills: 0 Ordered: 07-Apr-2020 DO Start : 07-Apr-2020 Active Start: 04-07-2020 take 6 tablets by [facility] every week methotrexate (Trexall) 2.5 mg tablet Take 6 tablets (15 mg total) by mouth 1 (one) time per week. 04/07/2020 Active Start: 09-29-2016 take 1 tablet by [facility] every week methotrexate 2.5 mg tablet Take 2.5 mg by mouth once each week. 0 09/29/2016 Active take 6 tablets by mo [facility] every week Trexall 5 MG Oral Tablet TAKE 6 TABLET Weekly Refills: 0 DO Active take 3 tablets by mo [facility] every week methotrexate 2.5 MG tablet Take 7.5 mg by mouth once a week. 0 Active Comment on above: Take 2.5 mg by mouth once each week. metoprolol tartrate 25 mg oral tablet (20 sources) beta-Adrenergic Juan Start: 05-14-2025 End: 05-16-2025 take 2.5 mg [...] daily, First dose on Sun09/10/19 at 2100 Start: 11-04-2014 End: 07-31-2026 25 mg, oral, 2 times daily, First dose on Sun08/04/25 at 2215, Hold for HR less 65 or SBP less than 110 Comment on above: 1 tablet twice daily [...] sources) Proton Pump Inhibitor Start: 3 End: 6 take 1 capsule by mouth once daily before mealtime omeprazole (PriLOSEC) [address] capsule Indications: 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 Take 1 capsule (40 mg) by mouth once daily in the morning. Take before meals. 90 capsule 3 07/31/2025 07/31/2026 Active Start: 09-08-2014 omeprazole (MO ILOSEC) 20 mg capsule 20 mg once [...] once daily. ondansetron 4 mg oral tablet (11 sources) Serotonin-3 Receptor Antagonist Start: 05-20-2025 End: 07-17-2025 ondansetron (Zofran) 4 mg tablet Indications: Fall, initial encounter , Open fracture of roof of right orbit, initial encounter (Multi) 1 tablet (4 mg) by nasogastric tube route every 8 hours if needed for nausea or vomiting. 05/20/2025 07/17/2025 Discontinued (Med List Cleanup) Start: 05-20-2025 End: 07-10-2025 Ondansetron Hcl 4 mg tablet Discontinued 4 mg feeding tube Q8H as needed for nausea and vomiting May 20, 2025 12:00am July 10, 2025 3:11pm Start: 05-16-2025 take 1 tablet by miquel [...] 1411 oxyCODONE hydrochloride 5 mg oral tablet (13 sources) Opioid Agonist Start: 05-20-2025 End: 07-17-2025 oxyCODONE (Roxicodone) 5 mg immediate release tablet Indications: Fall, initial encounter , Open fracture of roof of right orbit, initial encounter (Multi) 1 tablet (5 mg) by nasogastric tube route every 4 hours if needed for severe pain (7 - 10). 15 tablet 05/20/2025 07/17/2025 Discontinued (Med List Cleanup) Start: 05-20-2025 End: 07-10-2025 Oxycodone 5 mg tablet Discon tinued 5 mg feeding tube Q4H as needed for pain (scale score 7-10) 0 May 20, 2025 12:00am July 10, 2025 3:11pm Start: 05-11-2025 End: 05-16-2025 take 1 tablet [...] patient preference? Yes oxygen (O2) gas therapy (3 sources) Start: 05-20-2025 End: 07-17-2025 oxygen (O2) gas therapy Madeline cations: Fall, initial encounter , Open fracture of roof of right orbit, initial encounter (Multi) Inhale 2 L/min at 120,000 mL/hr once daily as needed (as needed). 05/20/2025 07/17/2025 Discontinued (Med List Cleanup) Start: 05-20-2025 oxygen (O2) ga s therapy [...] at 120,000 mL/hr continuously. 05/20/2025 05/20/2025 Discontinued oxygen (O2) therapy (1 source) Start: 08-04-2025 1 Dose, inhalation, Continuous - O2/gases, oxygen, Starting on Sun08/04/25 at 2145, Device: Nasal Cannula, Rate in liters per minute: 2 LPM, Keep O2 Sat Above: 92% pantoprazole 40 mg delayed release oral tablet (15 sources) Proton Pump Inhibitor Start: 08-04-2025 take 40 mg by mouth once daily 40 mg, oral, Nightly, First dose on Sun08/04/25 at 2215, Do not crush, chew, or split. Start: 05-16-2025 End: 07-17-2025 take 1 tablet by mouth once daily Pantoprazole 40 mg tablet,delayed release (DR/EC) Discontinued 40 mg PO DAILY May 20, 2025 12:00am July 10, 2025 3:11pm GERD Start: 05-14-2025 End: 05-16-2025 40 mg, intravenous, Daily, F irst dose on Mesha 05/14/25 at 0900, Reconstitute each 40 mg vial with 10 mL NS to make 4 mg/mL solution. Start: 05-11-2025 End: 05-14-2025 take 40 mg by mouth once daily before breakfast 40 mg, oral, Daily before breakfast, First dose on Sun05/11/25 at 0700, Do not crush, chew, or [...] Drop ( AK-DILATE, JEFFREY-SYNEPHRINE) polyethylene glycol 3350 25308 mg powder for oral solution (19 sources) Osmotic Laxative Start: 08-05-2025 17 g, oral, D aily, First dose on Sun08/05/25 at 0900, Bowel Regimen - for prevention of constipation. Start: 05-20-2025 End: 07-17-2025 Polyethylene Glycol 3350 (Mi ralax) 17 gram/dose powder Discontinued 17 g feeding tube DAILY May 20, 2025 12:00am July 10, 2025 3:11pm Constipation Start: 05-11-2025 End: 05-16-2025 17 g, nasoduodenal tube, Sid ly, First dose (after last modification) on Sun05/16/25 at 0900, Bowel Regimen - for prevention of constipation. Start: 09-11-2019 End: 09-18-2019 polyethylene glycol (MIRALAX ) 17 gram powder Take 17 (seventeen) g by mouth daily for 7 days . 255 g 0 09/11/2019 09/18/2019 pravastatin sodium 40 mg oral tablet (20 sources) HMG-CoA Reductase Inhibitor Start: 05-16-2025 40 mg, nasogastric tube, Nightly, First dose (after last modification) on 05/16/25 at 2100 Start: 05-11-2025 End: 05-16-2025 take 40 mg by mouth once daily 40 mg, oral, Nightly, F irst dose on 05/11/25 at 2100 Start: 09-08-2014 End: 07-31-2026 take 1 tablet by mouth once daily at bedtime pravastatin (Pravachol) 40 mg tablet Indications: Hyperlipidemia, unspecified hyperlipidemia type Take 1 tablet (40 mg) by mouth once daily at bedtime. 90 tablet 3 07/31/2025 07/31/2026 Active Comment on above: 40 mg once daily. proparacaine hydrochloride 5 mg/ml ophthalmic solution (4 sources) Local Anesthetic Start: 03-05-2024 End: 03-05-2024 proparacaine 0.5 % 1 Drop (ALCAINE) Start: 08-29-2023 End: 08-29-2023 proparacaine 0.5 % 1 Drop (A LCAINE) Start: 02-21-2023 End: 02-21-2023 proparacaine 0.5 % 1 Drop (A LCAINE) Sennosides (Senokot) 8.6 mg tablet (4 sources) Start: 05-20-2025 take 1 tablet by mouth at bedtime Sennosides (Senokot) 8.6 mg tablet Active 8.6 mg PO AT BEDTIME May 20, 2025 12:00am Constipation sennosides, skilled nursing 8.6 mg oral tablet (5 sources) Start: 05-20-2025 End: 07-17-2025 sennosides (Senokot) 8.6 mg tablet Indications: Fall, initial encounter , Open fracture of roof of right orbit, initial encounter (Multi) 1 tablet (8.6 mg) by nasogastric tube route as needed at bedtime for constipation. 05/20/2025 07/17/2025 Discontinued (Med List Cleanup) Start: 05-16-2025 End: 07-10-2025 take 1 tablet by mouth at bedtime Sennosides (Senokot) 8.6 mg tablet Discontinued 8.6 mg PO AT BEDTIME May 20, 2025 12:00am July 10, 2025 3:12pm Constipation sertraline 25 mg oral tablet (8 sources) [...] 1 Drop (MYDR IACYL) vit A/vit C/vit E/zinc/copper (PRESERVISION AREDS ORAL) (7 sources) End: 08-04-2025 take 1 tablet by mouth twice daily vit A/vit C/vit E/zinc/copper (PRESERVISION AREDS ORAL) Take 1 tablet by mouth 2 times a day. 08/04/2025 Discontinued (Entered in Error) take 1 tablet by mouth twice sid ly vit A/vit C/vit E/zinc/copper (PRESERVISION AREDS ORAL) [...] Active vitamin b12 1 mg oral tablet (10 sources) Vitamin B12 Start: 05-21-2025 End: 07-17-2025 cyanocobalamin (Vitamin B-12 ) 1,000 mcg tablet Indications: Fall, initial encounter , Open fracture of roof of right orbit, initial encounter (Multi) 1 tablet (1,000 mcg) by nasogastric tube route once daily. 05/21/2025 07/17/2025 Discontinued (Med List Cleanup) Start: 05-20-2025 take 1 capsule by mo [facility] once daily Start: 05-13-2025 End: 05-16-2025 1,000 mcg, nasoduodenal tube , Daily, First dose (after last modification) on 05/16/25 at 0900 Vitamins A,C,O-Qxvp-Jzejxq (Healthy Eyes Supervision) 4,296 mcg-226 mg-90 mg capsule (4 sources) Start: 05-20-2025 Vitamins A,C,E -Zinc-Copper (Healthy Eyes Supervision) 4,296 mcg-226 mg-90 mg capsule Active 1 NMA PO DAILY May 20, 2025 12:00am Eye Vitamin Completed/Discontinued Medications Medication Drug Class(es) Dates Sig (Normalized) Sig (Original) 24 hr alfuzosin hydrochloride 10 mg extended release oral tablet (20 sources) alpha-Adrenergic Juan Start: 07-17-2025 End: 07-31-2025 take 1 tablet by mouth once daily alfuzosin (Uroxatral) 10 mg 24 hr tablet Indications: Benign prostatic hyperplasia with lower urinary tract symptoms, symptom details unspecified Take 1 tablet (10 mg) by mouth once daily. DO NOT CRUSH CHEW OR SPLIT 90 tablet 3 07/17/2025 10:34 AM EDT 07/17/2025 07/31/2025 Discontinued (Therapy completed) Start: 07-03-2024 End: 07-17-2025 take 1 tablet by mouth once daily at mealtime Alfuzosin 10 mg tablet extended release 24 hr Discontinued 10 mg PO DAILY May 20, 2025 12:00am July 10, 2025 3:07pm BPH administer after the same meal each day Start: 08-06-2023 End: 12-16-2023 take 1 tablet by mouth once daily alfuzosin SR (UROXATRAL) 10 mg 24 hr tablet Take 1 tablet by mouth once daily. 0 08/06/2023 Active Comment on above: [facility] amLODIPine 5 mg oral tablet (20 sources) Dihydropyridine Calcium Channel Juan Start: 09-08-2014 End: 09-01-2025 Amlodipine 5 mg tablet Discontinued 5 mg feeding tube DAILY May 20, 2025 12:00am July 10, 2025 3:08pm BP amLODIPine Besyl ate TABS 5 mg-1 tab daily Refills: 0 DO Active amLODIPine Besyl ate TABS 5 mg-1 tab daily Refills: 0 Active Comment on above: 5 mg every morning. ampicillin-sulbacta m (Unasyn) 3 g in sodium chloride 0.9% IV 100 mL (1 source) Start: 5 End: 5 take 3 g intravenously every six hours 3 g, intravenous, at 200 mL/hr, Administer over 30 Minutes, Every 6 hours, First dose on 05/10/25 at 2315, Possible open fracture of the right orbit Vial-Bag System, Suspected Indication (Select all that apply): Sinusitis/Other ENT, Type of Therapy: Empiric, Indications: Sinusitis/Other ENT bacitracin zinc 0.5 unt/mg topical ointment (1 source) Start: 5 End: 5 1 Application, Topical, Once, On 05/10/25 at 1405, For 1 dose, Apply to: right hand skin avulsions barium sulfate (E-Z-Paque) 96 % (w/w) suspension 176 mL (1 source) Start: 4 End: 4 barium sulfate (E-Z-Paque) 96 % (w/w) suspension 176 mL barium sulfate (EZ HD BARIUM) 98 % suspension 347 mL (1 source) Start: 4 End: 4 barium sulfate (EZ HD BARIUM) 98 % suspension 347 mL barium sulfate (Varibar Honey) 40 %(w/v), 29% (w/w)(1500 CPS) suspension 30 mL (1 source) Start: 5 End: 5 take 30 mL by mouth once 30 mL, oral, Once in imaging, Starting on Mesha 08/06/25 at 0839, For 1 dose barium sulfate (Varibar Honey) 40 %(w/v), 29% (w/w)(1500 CPS) suspension 40 mL (1 source) Start: End: take 40 mL by mouth once 40 mL, oral, Once in imaging, Starting on Mesha 05/14/25 at 1356, For 1 dose barium sulfate (Varibar [place]) 40 % (w/v) suspension 30 mL (2 sources) Start: End: take 30 mL by mouth once 30 mL, oral, Once in imaging, Starting on Mesha 08/06/25 at 0839, For 1 dose Start: 05-14-2025 End: 05-14-2025 take 30 mL by mouth once 30 mL, oral, Once in imaging , Starting on Mesha 05/14/25 at 1356, For 1 dose barium sulfate (Varibar Pudding) 40 % (w/v), 30% (w/w) oral paste 30 mL (1 source) Start: 08-06-2025 End: 08-06-2025 take 30 mL by mouth once 30 mL, oral, Once in imaging, Starting on Mesha 08/06/25 at 0839, For 1 dose, Administer with oral syringe or spoon. Max cumulative dose of 30 mL. Discard any unused product 21 days after tube opened. barium sulfate (Varibar Pudding) 40 % (w/v), [...] (Varibar THIN Liquid) 81 % (w/w) suspension 20 mL (1 source) Start: 08-06-2025 End: 08-06-2025 take 20 mL by mouth once 20 mL, oral, Once in imaging, Starting on Mesha 08/06/25 at 0839, For 1 dose barium sulfate (Varibar THIN Liquid) 81 % (w/w) suspension 30 mL (1 source) Start: 05-14-2025 End: 05-14-2025 take 30 mL by mouth once 30 mL, oral, Once in imaging, Starting on Mesha 05/14/25 at 1356, For 1 dose benoxinate hydrochloride 4 mg/ml / fluorescein sodium 3 mg/ml ophthalmic solution (2 sources) Diagnostic Dye Start: 08-29-2023 End: 08-29-2023 fluorescein-benoxi lesia 0.3-0.4 % 1 Drop (FLURESS) Start: 02-21-2023 [...] day Quantity: 0 Refills: 0 Ordered: 23-Sep-2022 Paige Chicas Generic Substitution Allowed bisacodyl 5 mg delayed release oral tablet (9 sources) Stimulant Laxative Start: 05-13-2025 End: 07-17-2025 take 1 tablet by mouth once daily as needed for constipation Bisacodyl 5 mg tablet Discontinued 5 mg PO DAILY as needed for constipation May 20, 2025 12:00am July 10, 2025 3:08pm calcium chloride 0.0014 meq/ml / potassium chloride 0.004 meq/ml / sodium chloride 0.103 meq/ml / sodium lactate 0.028 meq/ml injectable solution (6 sources) Start: 08-05-2025 End: 08-07-2025 500 mL, intravenous, at 166.7 mL/hr, Administer over 3 Hours, Once, On Mesha 08/06/25 at 1730, For 1 dose Start: 09-10-2019 End: 09-11-2019 take 100 mL [...] Don Barrera MD Start : 30-Sep-2021 Active EPINEPHrine 0.01 mg/ml / lidocaine hydrochloride 10 mg/ml injectable solution (1 source) Antiarrhythmic, alpha-Adrenergic Agonist, beta-Adrenergic Agonist, Catecholamine, Amide Local Anesthetic Start: 05-10-2025 End: 05-10-2025 20 mL, infiltration, Once, On Sun05/10/25 at 1405, For 1 dose flu vacc [id number], 65yr up,-PF (Fluzone High-Dose Quad) syringe (3 sources) Start: 07-16-2023 End: 09-28-2023 flu vacc [id number], 65yr up,-PF (Fluzone High-Dose Quad) syringe INJECT DIRECTED .7 mL 0 07/16/2023 09/28/2023 Discontinued (Med List Cleanup) Start: 07-16-2023 End: 07-15-2024 flu vacc [id number], 65yr up, -PF (Fluzone High-Dose Quad) syringe [...] on Sun05/14/25 at 1015, For 1 day 1 ml hydrALAZINE hydrochloride 20 mg/ml injection (1 source) Arteriolar Vasodilator Start: 08-07-2025 End: 08-07-2025 5 mg, intravenous, Once, On Sun08/07/25 at 0300, For 1 dose 0.5 ml HYDROmorphone hydrochloride 1 mg/ml prefilled syringe (1 source) Opioid Agonist Start: 05-10-2025 End: 05-10-2025 0.5 mg, intravenous, Once, On Sun05/10/25 at 1935, For 1 dose iohexol (OMNIPaque) 350 mg iodine/mL solution 100 mL (1 source) Start: 08-04-2025 End: 08-04-2025 100 mL, intravenous, Once in imaging, Starting on Sun08/04/25 at 1501, For 1 dose iohexol (OMNIPaque) 350 mg [...] on Sun09/10/19 at 1500, For 48 hours labetalol hydrochloride 5 mg/ml injectable solution (1 source) beta-Adrenergic Juan Start: 08-04-2025 End: 08-04-2025 10 mg, intravenous, Once, On Sun08/04/25 at 1500, For 1 dose, Give at rate of 10 mg/min. Lactose-Reduced Food With Fibr (Isosource 1.5 Randy) 0.07 gram-1.5 kcal/mL liquid (6 sources) Start: 05-25-2025 End: 07-10-2025 Lactose-Reduced Food With Fibr (Isosource 1.5 Randy) 0.07 gram-1.5 kcal/mL liquid Discontinued 0 feeding tube .COMPLEX May 25, 2025 12:00am July 10, 2025 3:10pm 50ml/h via feeding tube; Start: 05-25-2025 Lactose-Reduce d Food With Fibr (Isosource 1.5 Randy) 0.07 gram- 1.5 kcal/mL liquid Active 0 feeding tube .COMPLEX May 25, 2025 12:00am 50ml/h via feeding tube; magnesium hydroxide 80 mg/ml oral suspension (1 [...] Discharge) Start: 09-18-2022 take 2 tablets by mo [facility] once daily predniSONE 20 MG Oral Tablet [...] 0.4 mg oral capsule (20 sources) alpha-Adrenergic Juan Start: 10-27-2022 End: 05-03-2024 take 2 capsules [...] Refills: 3 Ordered: 27-Oct-2022 Yuri SEVILLA, Don Active technetium (Tc-99m) tetrofosmin (Tc-MYOVIEW) injection 8-25 millicurie [...] Documented Da te Episodic/Chronic Acute cerebrovascular disease (20 sources) Intracranial hemorrhage; Translations: [Nontraumatic intracranial hemorrhage, [...] heart disease (20 sources) Coronary arteriosclerosis in [place] artery; Translations: [Coronary arteriosclerosis] Onset: 6 06-05-2016 Chronic Deficiency and other anemia (2 sources) Anemia; Translations: [Anemia, unspecified] 11-20-2024 Episodic Disorders of lipid metabolism (20 sources) Mixed hyperlipidemia; Translations: [Hyperlipidemia] Onset: 9 05-19-2019 Chronic E Codes: Fall (13 sources) Fall; Translations: [Unspecified fall, initial encounter] Onset: 5 05-11-2025 Episodic E Codes: Fall (1 source) Fall 07-31-2025 Esophageal disorders (20 sources) Gastroesophageal reflux disease; Translations: [Esophageal reflux] Onset: 3 03-13-2023 Chronic Essential hypertension (20 sources) Hypertensive disorder; Translations: [Unspecified essential hypertension] Onset: Chronic Headache; including migraine (20 sources) Migraine with aura; Translations: [Migraine with aura, without mention of intractable migraine without mention of status migrainosus] Onset: 3 03-13-2023 Chronic Hyperplasia of prostate (20 sources) Benign prostatic hyperplasia; Translations: [Hyperplasia of prostate] Onset: 3 05-04-2023 Chronic Hypertension with complications and secondary hypertension (2 sources) Benign hypertensive heart disease without congestive heart failure; Translations: [Hypertensive heart disease without heart failure] 07-31-2024 Chronic Immunizations and screening for infectious disease (20 sources) Patient encounter status; Translations: [Other specified vaccination] 11-05-2023 Episodic Inflammation; infection of eye (except that caused by tuberculosis or sexually transmitteddisease) (20 sources) Bilateral punctate keratitis of eyes; Translations: [Punctate keratitis, bilateral] Onset: 9 11-22-2018 Chronic Malaise and fatigue (14 sources) Asthenia; Translations: [Weakness] Onset: 5 11-15-2023 Episodic Mood disorders (12 sources) Depressive disorder; Translations: [Depression] 05-20-2025 Chronic Mood disorders (1 source) Mood disorders; Translations: [Depression, unspecified] Onset: 5 Occlusion or stenosis of precerebral arteries (13 sources) Carotid artery stenosis; Translations: [Occlusion and stenosis of unspecified carotid artery] Onset: 5 05-20-2025 Chronic Osteoarthritis (20 sources) Osteoarthritis; Translations: [Osteoarthrosis, unspecified whether generalized or localized, site unspecified] Onset: 8 07-16-2019 Chronic Other aftercare (1 source) 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; Translations: [care home (current) use of aspirin] Onset: 3 Episodic [...] [History of coronary artery disease] Episodic Other circulatory disease (1 source) History of cerebrovascular disease; Translations: [Personal history of transient ischemic attack (TIA), and cerebral infarction without residual deficits] 07-31-2024 Episodic Other connective tissue disease (20 [...] fractures of pelvis with disruption of pelvic atka; Translations: [Multiple fractures of pelvis with stable disruption of pelvic ring, initial encounter for closed fracture] 05-10-2025 Episodic Other fractures (16 sources) Other specified fracture of right pubis, initial encounter for closed fracture; Translations: [Closed fracture of pubis] Onset: 5 05-11-2025 Episodic Other fractures (16 sources) Fracture of sacrum; Translations: [Unspecified fracture of sacrum, initial encounter for closed fracture] Onset: 5 05-20-2025 Episodic Other fractures (1 source) Closed fracture sacrum; Translations: [Unspecified fracture of sacrum, sequela] 07-17-2025 Episodic Other fractures (3 sources) Other specified fracture of left pubis, initial encounter for closed fracture; Translations: [Other specified fracture of left pubis, initial encounter for closed fracture] Onset: 5 Episodic Other fractures (1 source) Unspecified fracture of sacrum, initial encounter for closed fracture; Translations: [Unspecified fracture of sacrum, initial encounter for closed fracture] Onset: 5 Episodic Other fractures (2 sources) Unspecified fracture of sacrum, sequela; Translations: [Unspecified fracture of sacrum, sequela] Onset: 5 Episodic Other fractures (2 sources) Multiple fractures of pelvis with stable disruption of pelvic ring, initial encounter for closed fracture; Translations: [Multiple fractures of pelvis with stable disruption of pelvic ring, initial encounter for closed fracture (Multi)] Onset: 5 Episodic Other gastrointestinal disorders (9 sources) Personal history of other diseases of the digestive system; Translations: [History of gastroesophageal reflux (GERD)] Episodic Other gastrointestinal disorders (20 sources) Dysphagia; Translations: [Dysphagia, unspecified] Onset: 5 05-20-2025 Episodic Other gastrointestinal disorders (1 source) Dysphagia, oropharyngeal phase; Translations: [Dysphagia, oropharyngeal phase] Onset: 5 Episodic Other gastrointestinal disorders (4 sources) Dysphagia, unspecified; Translations: [Dysphagia, unspecified] Onset: 5 Episodic Other injuries and conditions due to external causes (3 sources) Unspecified injury of head, initial encounter; Translations: [Unspecified injury of head, initial encounter] Onset: 5 Episodic Other injuries and conditions due to external causes (4 sources) Injury of head; Translations: [Unspecified injury of head, initial encounter] Onset: 5 08-09-2025 Episodic Other lower respiratory disease (4 sources) Cough; Translations: [Cough] Episodic Other lower respiratory disease (4 sources) Rib pain; Translations: [Pleurodynia] 04-10-2025 Episodic Other male genital disorders (20 sources) [...] 4 11-05-2023 Chronic Skull and face fractures (20 sources) Closed fracture of right orbit; Translations: [...] (2 sources) Nail Care Onset: 5 Unclassified (1 source) Fracture of orbital roof, unspecified side, initial encounter for closed fracture; Translations: [Fracture of orbital roof, unspecified side, initial encounter for closed fracture] Onset: 5 Unclassified (1 source) Traumatic subdural hemorrhage with loss of consciousness status unknown, initial encounter; Translations: [Traumatic subdural hemorrhage with loss of consciousness status unknown, initial encounter] Onset: 5 Unclassified (2 sources) TCM. pt said was calling to make appt on 07/13/25 Unclassified (1 source) Open fracture of right orbit 07-31-2025 Unclassified (4 sources) Fracture of orbital roof, right side, initial encounter for open fracture; Translations: [Fracture of orbital roof, right side, initial encounter for open fracture ([facility])] Onset: 5 Unclassified (2 sources) Fracture of orbital roof, unspecified side, sequela; Translations: [Fracture of orbital roof, unspecified side, sequela] Onset: 5 Unclassified (1 source) Traumatic subdural hemorrhage with loss of consciousness status unknown, initial encounter ([facility]); Translations: [Traumatic subdural hemorrhage with loss of consciousness status unknown, initial encounter ([facility])] Onset: 5 Unclassified (1 source) Abdominal aortic aneurysm, without rupture, unspecified ([facility]); Translations: [Abdominal aortic aneurysm, without rupture, unspecified ([facility])] Onset: 3 Unclassified (2 sources) Fracture of orbit, unspecified, initial encounter for closed fracture; Translations: [Fracture of orbit, unspecified, initial encounter for closed fracture ([facility])] Onset: 5 Past or Other Problems Problem [...] Episodic Conditions associated with dizziness or vertigo (19 sources) Dizziness and giddiness; Translations: [Dizziness] Onset: 03-10-2023 07-22-2023 Episodic Deficiency and other anemia (2 sources) Anemia, unspecified; Translations: [Anemia, unspecified] Onset: 11-20-2024 Episodic Genitourinary symptoms and ill-defined conditions (20 sources) Retention of urine; Translations: [Blood in urine] Onset: 03-13-2023 03-13-2023 Episodic Mycoses (20 sources) Onychomycosis; Translations: [Tinea unguium] Onset: 05-13-2021 Episodic Other aftercare (3 sources) 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; Translations: [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] Onset: 03-10-2023 Episodic Other connective tissue disease (20 sources) [...] Onset: 11-18-2014 Resolved: 12-30-2015 12-30-2015 Episodic Other lower respiratory disease (2 sources) Pleurodynia; Translations: [Pleurodynia] Onset: 04-10-2025 Episodic Other non-traumatic joint disorders (20 sources) Hip pain; Translations: [Pain in joint, pelvic region and thigh] 06-12-2024 Episodic Other non-traumatic joint disorders (20 sources) Shoulder pain; Translations: [Pain in joint, shoulder region] Onset: 03-13-2023 03-13-2023 Episodic Other non-traumatic joint disorders (20 sources) Arthralgia of the pelvic region and thigh; Translations: [Pain in joint, pelvic region and thigh] Onset: 03-13-2023 03-13-2023 Episodic Other screening for suspected conditions (not mental disorders or infectious disease) (3 sources) Encounter for observation for other suspected diseases and conditions ruled out; Translations: [Encounter for screening for malignant neoplasm [...] Episodic Unclassified (20 sources) Onset: 05-04-2023 Resolved: 07-31-2025 05-04-2023 Unclassified (1 source) Abdominal aortic aneurysm, without rupture, unspecified; Translations: [Abdominal aortic aneurysm, without rupture, unspecified] Onset: 05-10-2023 Unclassified (1 source) Infrarenal abdominal aortic aneurysm, without rupture; Translations: [Infrarenal abdominal aortic aneurysm, without rupture] Onset: 05-10-2023 Unclassified (1 source) Traumatic subdural hemorrhage with loss of consciousness status unknown, initial encounter ([facility]); Translations: [Traumatic subdural hemorrhage with loss of consciousness status unknown, initial encounter ([facility] [place])] Onset: 07-17-2025 Unclassified (1 source) Abdominal aortic aneurysm, without rupture, unspecified ([facility]); Translations: [Abdominal aortic aneurysm, without rupture, unspecified ([facility])] Onset: 11-20-2024 Viral infection (15 sources) COVID-19; Translations: [COVID-19 virus detected] Onset: 10-11-2021 Episodic NEGATED: Highlighted row has not occurred!Residual codes; unclassified (20 sources) Disease Episodic Results Test Name Value Interpretation Reference Range Facility 25-hydroxyvitamin D3 [Mass/V ol]on 08-06-2025 Interpretation and review of laboratory results Normal [facility] Deficiency: < 20 ng/ ml Insufficiency: 20-29 ng/ml Sufficiency: 30-100 ng/ml This assay accurately quantifies the sum of Vitamin D3, 25-Hydroxy and Vitamin D2,25-Hydroxy. [facility] CBC panel Auto (Bld)on 08-06 Erythrocyte distribution width (RBC) [Ratio] 12.7 % 11.5 - 14.5 % [facility] Hematocrit (Bld) [Volume fraction] 42.2 % 41.0 - 52.0 % [facility] Hemoglobin (Bld) [Mass/Vol] 13.1 g/dL Low 13.5 - 17.5 g/dL [facility] Interpretation and review of laboratory results Abnormal [facility] MCH (RBC) [Entitic mass] 30.8 pg 26.0 - 34.0 pg [facility] MCHC (RBC) [Mass/Vol] 31.0 g/dL Low 32.0 - 36.0 g/dL [facility] MCV (RBC) [Entitic vol] 99 fL 80 - 100 fL [facility] Nucleated RBC/100 WBC (Bld) [Ratio] 0.0 % [facility] Platelets (Bld) [#/Vol] 239 10*3/uL [facility] RBC (Bld) [#/Vol] 4.25 10*6/uL [facility] WBC (Bld) [#/Vol] 7.3 10*3/uL [facility] Erythrocyte distribution width (RBC) [Ratio] 12.7 % Normal 11.5-14.5 [facility] Comment on above: Performed By: #### T HYDS #### KALIN OSBORN ([id number]) [facility] ([facility]) [address] [place] [address] [id number] Hematocrit (Bld) [Volume fraction] 42.2 % Normal 41.0-52.0 [facility] Comment on above: Performed By: #### T HYDS #### KALIN OSBORN ([id number]) [facility] ([facility]) [address] [place] [address] 48457 Hemoglobin (Bld) [Mass/Vol] 13.1 g/dL Low 13.5-17.5 [facility] Comment on above: Performed By: #### T HYDS #### KALIN OSBORN ([id number]) [facility] ([facility]) [address] [place] [address] 70763 MCH (RBC) [Entitic mass] 30.8 pg Normal 26.0-34.0 [facility] Comment on above: Performed By: #### T HYDS #### KALIN OSBORN ([id number]) [facility] ([facility]) [address] [place] [address] 35410 MCHC (RBC) [Mass/Vol] 31.0 g/dL Low 32.0-36.0 [facility] Comment on above: Performed By: #### T HYDS #### KALIN OSBORN ([id number]) [facility] ([facility]) [address] [place] [address] MCV (RBC) [Entitic vol] 99 fL Normal 80-100 [facility] Comment on above: Performed By: #### T HYDS #### KALIN OSBORN ([id number]) [facility] ([facility]) [address] [place] [address] [id number] Nucleated RBC/100 WBC (Bld) [Ratio] 0.0 /100 WBCs Normal 0.0-0.0 [facility] Comment on above: Performed By: #### T HYDS #### KALIN OSBORN ([id number]) [facility] ([facility]) [address] [place] [address] 61793 Platelets (Bld) [#/Vol] 239 x10*3/uL Normal 150-450 [facility] Comment on above: Performed By: #### T HYDS #### KALIN OSBORN ([id number]) [facility] ([facility]) [address] [place] [address] [id number] RBC (Bld) [#/Vol] 4.25 x10*6/uL Low 4.50-5.90 [facility] Comment on above: Performed By: #### T HYDS #### KALIN OSBORN ([id number]) [facility] ([facility]) [address] [place] [address] 73911 WBC (Bld) [#/Vol] 7.3 x10*3/uL Normal 4.4-11.3 [facility] Comment on above: Performed By: #### T HYDS #### KALIN OBSORN ([id number]) [facility] ([facility]) [address] [place] [address] Calcidiolon 08-06-2025 25-hydroxyvitamin D3 [Mass/Vol] 44 ng/mL Normal 30-100 [facility] Comment on above: Order Comment: TSH t esting is performed using different testing methodology at [facility] than at other [facility]. Direct result comparisons should only be made within the same method. Performed By: #### T JAHAIRAS #### KALIN OSBORN ([id number]) [facility] ([facility]) [facility] [place] [id number] Cobalamin (Vitamin B12) [Mas s/Vol]on 08-06-2025 Interpretation and review of laboratory results Abnormal [facility] Cobalaminson 08-06-2025 Cobalamin (Vitamin B12) [Mass/Vol] 1043 pg/mL High 211-911 [facility] Comment on above: Performed By: #### T HYDS #### KALIN OSBORN ([id number]) [facility] ([facility]) [facility] [place] [id number] Magnesiumon 08-06-2025 Magnesium [Mass/Vol] 2.02 mg/dL 1.60 - 2.40 mg/dL [facility] Magnesium [Mass/Vol] 2.02 mg/dL Normal 1.60-2.40 [facility] Comment on above: Performed By: #### T HYDS #### KALIN OSBORN ([id number]) [facility] ([facility]) [address] [place] [address] [id number] Magnesium [Mass/Vol]on 08-06 Interpretation and review of laboratory results Normal [facility] No Panel Informationon 08-06 [facility] RF videography Hypopharynx a nd Esophagus Views for swallowing function W speech and W barium contrast Julito 08-06-2025 Interpreted By: Terry Ireland and Tom Ortega STUDY: [place] MODIFIED BARIUM SWALLOW STUDY;; 08/06/2025 8:38 am INDICATION: Signs/Symptoms:eval for aspiration, dysphagia. COMPARISON: None. ACCESSION NUMBER(S): [id number] ORDERING CLINICIAN: ELAINE MADRIGAL TECHNIQUE: MBSS completed. Informed verbal consent obtained prior to completion of exam. Trials of thin, nectar thick, honey thick, puree, soft-solids, and regular solids given. WARD SERVICE SUPERVISOR: Shannon Santos Phone/Pager: [phone] SPEECH FINDINGS: Speech-Language Pathology Inpatient Modified Barium Swallow Study Patient Name: Fawn Campos : 1935 Today's Date: 08/06/25 Start Time: 800 Stop Time: 830 Time Calculation (min): 30 Modified Barium Swallow Study completed. Informed verbal consent obtained prior to completion of exam. Trials of thin liquids via tsp/straw, mildly (nectar) thick liquids via straw, moderately (honey) thick liquids via straw, and purees were given. WARD SERVICE SUPERVISOR: Shannon Santos WARD SERVICE SUPERVISOR Contact info: [employer] Reason for Referral: C/f aspiration/oropharynge al dysphagia Patient Hx: Fawn Campos is a 89 y.o. 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 Respiratory Status: Room air Current diet: Easy to Chew Solids and Mildly ([place] Thick Liquids; recommended at nursing facility, per medical team Pain: Pain Scale: 0-10 Ratin DIET RECOMMENDATIONS: NPO with frequent aggressive oral care. . 10 ice chips/hr allowed for pleasure, safe swallow stimulation, and after oral care to prevent buildup of bacteria within the oropharynx . GOC discussions re: assuming the risks of aspiration w/ continued PO intake; suspect pt's swallow rehabilitation poor 2/2 anatomical deficits (i.e., pt will remain at risk for aspiration regardless of any further WARD SERVICE SUPERVISOR intervention). MD aware. WARD SERVICE SUPERVISOR PLAN: Skilled WARD SERVICE SUPERVISOR Services: Skilled WARD SERVICE SUPERVISOR intervention for dysphagia is warranted. WARD SERVICE SUPERVISOR Frequency: pending GOC discussions Discussed POC: patient Discussed Risks/Benefits: Yes Patient/Caregiver Agreeable: Yes Short term goals established: Pt/caregiver/family will demonstrate adequate return of knowledge re: dysphagia POC/diet recommendations/safe swallowing guidelines w/ 100% acc to effectively assist the patient in immediate safety with oral intake and swallowing. Start Date: 08/06/2025 End Date: 09/06/2025 Status: Goal Initiated this date Pt will tolerate least restrictive diet with no overt clinical s/s aspiration 100% of the time. Start Date: 08/06/2025 End Date: 09/06/2025 Status: Goal Initiated this date Education Provided: Results and recommendations per MBSS, with video review; recommendations and POC at this time. Verbal understanding and agreement given on all accounts. Treatment Provided Today: WARD SERVICE SUPERVISOR provided extensive education and training to pt/pt family regarding anatomy/physiology of swallow function, risk factors of aspiration/aspiration pna & how to mitigate factors, diet modifications, and the use of compensatory swallow strategies to promote pt safety upon PO intake. Additional Medical Consults Suggested: GOC Mechanics of the Swallow Summary: ORAL PHASE: Lip Closure - No labial escape/anterior loss of bolus Tongue Control During Bolus Hold - Posterior escape of less than half of the bolus Bolus prep/mastication - Mastication not assessed Bolus transport/lingual motion - Repetitive/disorganize d tongue motion (tongue pumping) Oral residue - Residue collection on oral structure PHARYNGEAL PHASE: Initiation of pharyngeal swallow - Bolus head at pit of pyriforms Soft palate elevation - No bolus between soft palate/pharyngeal wall Laryngeal elevation - Complete superior movement of thyroid cartilage with contact of arytenoids to epiglottic petiole Anterior hyoid excursion - Partial anterior movement Epiglottic movement - Partial inversion Laryngeal vestibule closure - None - wide column of air / contrast in laryngeal vestibule Pharyngeal stripping wave - Absent Pharyngeal contraction (A/P view) - Not tested Pharyngoesophageal segment opening - Partial distension/partial duration with partial obstruction of flow of bolus Tongue base retraction - Wide column of contrast or air between tongue base and pharyngeal wall Pharyngeal residue - Collection of residue within or on the pharyngeal structures ESOPHAGEAL PHASE: Esophageal clearance - Not evaluated *Of note: The A-P bolus follow-through is not intended to be utilized as a diagnostic assessment of the esophagus, rather a tool to observe the biomechanical aspects of the swallow continu (more content not included)... [facility] Terry Ireland MD - 08/06/2025 Interpreted By: Terry Ireland and Nelson Camree STUDY: [place] MODIFIED BARIUM SWALLOW STUDY;; 08/06/2025 8:38 am INDICATION: Signs/Symptoms:eval for aspiration, dysphagia. COMPARISON: None. ACCESSION NUMBER(S): [id number] ORDERING CLINICIAN: ELAINE MADRIGAL TECHNIQUE: MBSS completed. Informed verbal consent obtained prior to completion of exam. Trials of thin, nectar thick, honey thick, puree, soft-solids, and regular solids given. WARD SERVICE SUPERVISOR: Shannon Santos Phone/Pager: [phone] SPEECH FINDINGS: Speech-Language Pathology Inpatient Modified Barium Swallow Study Patient Name: Fawn Campos : 1935 Today's Date: 08/06/25 Start Time: 800 Stop Time: 830 Time Calculation (min): 30 Modified Barium Swallow Study completed. Informed verbal consent obtained prior to completion of exam. Trials of thin liquids via tsp/straw, mildly (nectar) thick liquids via straw, moderately (honey) thick liquids via straw, and purees were given. WARD SERVICE SUPERVISOR: Shannon Santos, WARD SERVICE SUPERVISOR Contact info: [employer] Reason for Referral: C/f aspiration/oropharynge al dysphagia Patient Hx: Fawn Campos is a 89 y.o. 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 Respiratory Status: Room air Current diet: Easy to Chew Solids and Mildly ([place]) Thick Liquids; recommended at nursing facility, per medical team Pain: Pain Scale: 0-10 Ratin DIET RECOMMENDATIONS: NPO with frequent aggressive oral care. . 10 ice chips/hr allowed for pleasure, safe swallow stimulation, and after oral care to prevent buildup of bacteria within the oropharynx . GOC discussions re: assuming the risks of aspiration w/ continued PO intake; suspect pt's swallow rehabilitation poor 2/2 anatomical deficits (i.e., pt will remain at risk for aspiration regardless of any further WARD SERVICE SUPERVISOR intervention). MD aware. WARD SERVICE SUPERVISOR PLAN: Skilled WARD SERVICE SUPERVISOR Services: Skilled WARD SERVICE SUPERVISOR intervention for dysphagia is warranted. WARD SERVICE SUPERVISOR Frequency: pending GOC discussions Discussed POC: patient Discussed Risks/Benefits: Yes Patient/Caregiver Agreeable: Yes Short term goals established: Pt/caregiver/family will demonstrate adequate return of knowledge re: dysphagia POC/diet recommendations/safe swallowing guidelines w/ 100% acc to effectively assist the patient in immediate safety with oral intake and swallowing. Start Date: 08/06/2025 End Date: 09/06/2025 Status: Goal Initiated this date Pt will tolerate least restrictive diet with no overt clinical s/s aspiration 100% of the time. Start Date: 08/06/2025 End Date: 09/06/2025 Status: Goal Initiated this date Education Provided: Results and recommendations per MBSS, with video review; recommendations and POC at this time. Verbal understanding and agreement given on all accounts. Treatment Provided Today: WARD SERVICE SUPERVISOR provided extensive education and training to pt/pt family regarding anatomy/physiology of swallow function, risk factors of aspiration/aspiration pna & how to mitigate factors, diet modifications, and the use of compensatory swallow strategies to promote pt safety upon PO intake. Additional Medical Consults Suggested: GOC Mechanics of the Swallow Summary: ORAL PHASE: Lip Closure - No labial escape/anterior loss of bolus Tongue Control During Bolus Hold - Posterior escape of less than half of the bolus Bolus prep/mastication - Mastication not assessed Bolus transport/lingual motion - Repetitive/disorganize d tongue motion (tongue pumping) Oral residue - Residue collection on oral structure PHARYNGEAL PHASE: Initiation of pharyngeal swallow - Bolus head at pit of pyriforms Soft palate elevation - No bolus between soft palate/pharyngeal wall Laryngeal elevation - Complete superior movement of thyroid cartilage with contact of arytenoids to epiglottic petiole Anterior hyoid excursion - Partial anterior movement Epiglottic movement - Partial inversion Laryngeal vestibule closure - None - wide column of air / contrast in laryngeal vestibule Pharyngeal stripping wave - Absent Pharyngeal contraction (A/P view) - Not tested Pharyngoesophageal segment opening - Partial distension/partial duration with partial obstruction of flow of bolus Tongue base retraction - Wide column of contrast or air between tongue base and pharyngeal wall Pharyngeal residue - Collection of residue within or on the pharyngeal structures ESOPHAGEAL PHASE: Esophageal clearance - Not evaluated *Of note: The A-P bolus follow-through is not intended to be utilized as a diagnostic assessment of the esophagus, rather a tool to observe the (more content not included)... [facility] Work Phone: Radiology Study observation (narrative) [facility] Work Phone: RF videography Hypopharynx a nd Esophagus Views for swallowing function W speech and W barium contrast POOrdered By: Terry Ireland on 08-06-2025 [facility] Work Phone: Renal function 2000 panelon 08-06-2025 Albumin BCP dye [Mass/Vol] 4.0 g/dL 3.4 - 5.0 g/dL [facility] Anion gap [Moles/Vol] 13 mmol/L 10 - 2 0 mmol/L [facility] Calcium [Mass/Vol] 8.9 mg/dL 8.6 - 10. 6 mg/dL [facility] Chloride [Moles/Vol] 102 mmol/L 98 - 10 7 mmol/L [facility] CO2 [Moles/Vol] 26 mmol/L 21 - 32 mmol/L [facility] Creatinine [Mass/Vol] 0.72 mg/dL 0.50 - 1.30 mg/dL [facility] GFR/1.73 sq M.predicted among non-blacks MDRD (S/P/Bld) [Vol rate/Area] 87 mL/min/{1.73_m2} - PINF [facility] Comment on above: Calculations of leonides mated GFR are performed using the 2020 CKD-EPI Study Refit equation without the race variable for the IDMS-Traceable creatinine methods. https://jasn.asnjournals.org/content//ASN.82294 29533 Glucose [Mass/Vol] 105 mg/dL High 74 - 99 mg/dL [facility] Interpretation and review of laboratory results Abnormal [facility] Phosphate [Mass/Vol] 3.2 mg/dL 2.5 - 4 .9 mg/dL [facility] Potassium [Moles/Vol] 4.0 mmol/L 3.5 - 5.3 mmol/L [facility] Sodium [Moles/Vol] 137 mmol/L 136 - 145 mmol/L [facility] Urea nitrogen [Mass/Vol] 10 mg/dL 6 - 23 mg/dL [facility] Albumin BCP dye [Mass/Vol] 4.0 g/dL Normal 3.4-5.0 [facility] Comment on above: Performed By: #### T HYDS #### GAGNON WELI ([id number]) [facility] ([facility]) [facility] [place] [address] Anion gap [Moles/Vol] 13 mmol/L Normal 10-20 [facility] Comment on above: Performed By: #### T HYDS #### KALIN OSBORN ([id number]) [facility] ([facility]) [address] [place] [address] 16092 Calcium [Mass/Vol] 8.9 mg/dL Normal 8.6-10.6 [facility] Comment on above: Performed By: #### T HYDS #### KALIN OSBORN ([id number]) [facility] ([facility]) [address] [place] [address] 22906 Chloride [Moles/Vol] 102 mmol/L Normal 98-107 [facility] Comment on above: Performed By: #### T HYDS #### KALIN OSBORN ([id number]) [facility] ([facility]) [address] [place] [address] 86116 CO2 [Moles/Vol] 26 mmol/L Normal 21-32 [facility] Comment on above: Performed By: #### T HYDS #### KALIN OSBORN ([id number]) [facility] ([facility]) [address] [place] [address]0546 Creatinine [Mass/Vol] 0.72 mg/dL Normal 0.50-1.30 [facility] Comment on above: Performed By: #### T HYDS #### KALIN OSBORN ([id number]) [facility] ([facility]) [address] [place] [address]4640 Glomerular filtration rate 87 mL/min/1.73m*2 Normal >60 [facility] Comment on above: Result Comment: Calc ulations of estimated GFR are performed using the 2020 CKD-EPI Study Refit equation without the race variable for the IDMS-Traceable creatinine methods. https://jasn.asnjournals.org/content//ASN.08274 08765 Performed By: #### T HYDS #### KALIN OSBORN ([id number]) [facility] ([facility]) [address] [place] [address] Glucose [Mass/Vol] 105 mg/dL High 74-99 [facility] Comment on above: Performed By: #### T HYDS #### KALIN OSBORN ([id number]) [facility] ([facility]) [address] [place] [address]80 Phosphate [Mass/Vol] 3.2 mg/dL Normal 2.5-4.9 [facility] Comment on above: Performed By: #### T HYDS #### KALIN OSBORN ([id number]) [facility] ([facility]) [address] [place] [address] 96510 Potassium [Moles/Vol] 4.0 mmol/L Normal 3.5-5.3 [facility] Comment on above: Performed By: #### T HYDS #### KALIN OSBORN ([id number]) [facility] ([facility]) [address] [place] [address] 00514 Sodium [Moles/Vol] 137 mmol/L Normal 136-145 [facility] Comment on above: Performed By: #### T HYDS #### KALIN OSBORN ([id number]) [facility] ([facility]) [address] [place] [address] 86642 Urea nitrogen [Mass/Vol] 10 mg/dL Normal 6-23 [facility] Comment on above: Performed By: #### T HYDS #### KALIN OSBORN ([id number]) [facility] ([facility]) [address] [place], [place] [id number] WARD SERVICE SUPERVISOR Modified Barium Swallow Evaluationon 08-06-2025 FLAVIA Humphrey 08/06/2025 9:15 AM Speech-Language Pathology Inpatient Modified Barium Swallow Study Patient Name: Fawn Campos : 1935 Today's Date: 08/06/25 Start Time: 800 Stop Time: 830 Time Calculation (min): 30 Modified Barium Swallow Study completed. Informed verbal consent obtained prior to completion of exam. Trials of thin liquids via tsp/straw, mildly (nectar) thick liquids via straw, moderately (honey) thick liquids via straw, and purees were given. WARD SERVICE SUPERVISOR: FLAVIA Humphrey Contact info: [employer] Reason for Referral: C/f aspiration/oropharynge al dysphagia Patient Hx: Fawn Campos is a 89 y.o. 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 Respiratory Status: Room air Current diet: Easy to Chew Solids and Mildly ([place]) Thick Liquids; recommended at nursing facility, per medical team Pain: Pain Scale: 0-10 Ratin DIET RECOMMENDATIONS: NPO with frequent aggressive oral care. 10 ice chips/hr allowed for pleasure, safe swallow stimulation, and after oral care to prevent buildup of bacteria within the oropharynx GOC discussions re: assuming the risks of aspiration w/ continued PO intake; suspect pt's swallow rehabilitation poor 2/2 anatomical deficits (i.e., pt will remain at risk for aspiration regardless of any further WARD SERVICE SUPERVISOR intervention). MD aware. WARD SERVICE SUPERVISOR PLAN: Skilled WARD SERVICE SUPERVISOR Services: Skilled WARD SERVICE SUPERVISOR intervention for dysphagia is warranted. WARD SERVICE SUPERVISOR Frequency: pending GOC discussions Discussed POC: patient Discussed Risks/Benefits: Yes Patient/Caregiver Agreeable: Yes Short term goals established: Pt/caregiver/family will demonstrate adequate return of knowledge re: dysphagia POC/diet recommendations/safe swallowing guidelines w/ 100% acc to effectively assist the patient in immediate safety with oral intake and swallowing. Start Date: 08/06/2025 End Date: 09/06/2025 Status: Goal Initiated this date Pt will tolerate least restrictive diet with no overt clinical s/s aspiration 100% of the time. Start Date: 08/06/2025 End Date: 09/06/2025 Status: Goal Initiated this date Education Provided: Results and recommendations per MBSS, with video review; recommendations and POC at this time. Verbal understanding and agreement given on all accounts. Treatment Provided Today: WARD SERVICE SUPERVISOR provided extensive education and training to pt/pt family regarding anatomy/physiology of swallow function, risk factors of aspiration/aspiration pna & how to mitigate factors, diet modifications, and the use of compensatory swallow strategies to promote pt safety upon PO intake. Additional Medical Consults Suggested: GOC Mechanics of the Swallow Summary: ORAL PHASE: Lip Closure - No labial escape/anterior loss of bolus Tongue Control During Bolus Hold - Posterior escape of less than half of the bolus Bolus prep/mastication - Mastication not assessed Bolus transport/lingual motion - Repetitive/disorganize d tongue motion (tongue pumping) Oral residue - Residue collection on oral structure PHARYNGEAL PHASE: Initiation of pharyngeal swallow - Bolus head at pit of pyriforms Soft palate elevation - No bolus between soft palate/pharyngeal wall Laryngeal elevation - Complete superior movement of thyroid cartilage with contact of arytenoids to epiglottic petiole Anterior hyoid excursion - Partial anterior movement Epiglottic movement - Partial inversion Laryngeal vestibule closure - None - wide column of air / contrast in laryngeal vestibule Pharyngeal stripping wave - Absent Pharyngeal contraction (A/P view) - Not tested Pharyngoesophageal segment opening - Partial distension/partial duration with partial obstruction of flow of bolus Tongue base retraction - Wide column of contrast or air between tongue base and pharyngeal wall Pharyngeal residue - Collection of residue within or on the pharyngeal structures ESOPHAGEAL PHASE: Esophageal clearance - Not evaluated *Of note: The A-P bolus follow-through is not intended to be utilized as a diagnostic assessment of the esophagus, rather a tool to observe the biomechanical aspects of the swallow continuum and to inform the need for further evaluation by medical specialists, as applicable. WARD SERVICE SUPERVISOR Impressions with Severity Rating: Pt awake/alert, consistently cooperative/able to follow commands, and responded appropriately to conversation/questions by WARD SERVICE SUPERVISOR. A&Ox4. Oral mechanism examination WNL. Of note, pt underwent initial MBSS during previous admission in April w/ recommendation of NPO w/ frequent aggressive oral care. INSURANCE COUNSEL + pt report subsequent PEG tube placement at [facility] and eventual advancement of diet to Eas (more content not included)... [facility] Work Phone: Vitamin B12on 08-06-2025 Cobalamin (Vitamin B12) [Mass/Vol] 1043 pg/mL High 211 - 911 pg/mL [facility] Vitamin D 25-Hydroxy,Total ( for eval of Vitamin D levels)on 08-06-2025 25-hydroxyvitamin D3 [Mass/Vol] 44 ng/mL 30 - 100 ng/mL [facility] Basic Metabolic Profile (BMP )on 08-05-2025 BUN Normal 4-19 [facility] Comment on above: Result Comment: Canc elled via OM: Order cancelled - Patient discharged Performed By: #### L 501.080 #### [facility] [address] [place], [address] BUN/CRE Normal 10-20 [facility] Comment on above: Result Comment: Canc elled via OM: Order cancelled - Patient discharged Performed By: #### L 501.080 #### [facility] [address] [place], [address] Calcium Normal 7.6-11.0 [facility] Comment on above: Result Comment: Canc elled via OM: Order cancelled - Patient discharged Performed By: #### L 501.080 #### [facility] [address] [place], [address] CL Normal 98-108 [facility] Comment on above: Result Comment: Canc elled via OM: Order cancelled - Patient discharged Performed By: #### L 501.080 #### [facility] [address] [place], [address] CO2 Normal 21.0-32.0 [facility] Comment on above: Result Comment: Canc elled via OM: Order cancelled - Patient discharged Performed By: #### L 501.080 #### [facility] [address] [place], [address] CREAT,SERUM Normal 0.70-1.20 [facility] Comment on above: Result Comment: Canc elled via OM: Order cancelled - Patient discharged Performed By: #### L 501.080 #### [facility] [address] [place], [address] eGFR Normal >60 [facility] Comment on above: Result Comment: Canc elled via OM: Order cancelled - Patient discharged Performed By: #### L 501.080 #### [facility] [address] [place], [address] GAP Normal 5-15 [facility] Comment on above: Result Comment: Canc elled via OM: Order cancelled - Patient discharged Performed By: #### L 501.080 #### [facility] [address] [place], [address] GLU Normal 70-99 [facility] Comment on above: Result Comment: Canc elled via OM: Order cancelled - Patient discharged Performed By: #### L 501.080 #### [facility] [address] [place], [address] Potassium Normal 3.3-5.1 [facility] Comment on above: Result Comment: Canc elled via OM: Order cancelled - Patient discharged Performed By: #### L 501.080 #### [facility] [address] [place], [address] Basic Metabolic Profile (BMP) Normal 133-145 [facility] Comment on above: Result Comment: Canc elled via OM: Order cancelled - Patient discharged Performed By: #### L 501.080 #### [facility] [address] [place], [address] CBC W/Diff, Automatedon 10-1 -2024 Absolute Neut Normal 2.0-7.7 [facility] Comment on above: Result Comment: Canc elled via OM: Order cancelled - Patient discharged Performed By: #### L 500.4050, L500.4100, L503.0106, L506.1001 #### [facility] [address] [place], [address] HCT Normal 40-54 [facility] Comment on above: Result Comment: Canc elled via OM: Order cancelled - Patient discharged Performed By: #### L 500.4050, L500.4100, L503.0106, L506.1001 #### [facility] [address] [place], [address] HGB Normal 13.0-16.5 [facility] Comment on above: Result Comment: Canc elled via OM: Order cancelled - Patient discharged Performed By: #### L 500.4050, L500.4100, L503.0106, L506.1001 #### [facility] [address] [place], [address] MCH Normal 27.0-32.0 [facility] Comment on above: Result Comment: Canc elled via OM: Order cancelled - Patient discharged Performed By: #### L 500.4050, L500.4100, L503.0106, L506.1001 #### [facility] [address] [place], [address] MCHC Normal 32-36 [facility] Comment on above: Result Comment: Canc elled via OM: Order cancelled - Patient discharged Performed By: #### L 500.4050, L500.4100, L503.0106, L506.1001 #### [facility] [address] [place], [address] MCV Normal 80-94 [facility] Comment on above: Result Comment: Canc elled via OM: Order cancelled - Patient discharged Performed By: #### L 500.4050, L500.4100, L503.0106, L506.1001 #### [facility] [address] [place], [address] NEUT% Normal 47-70 [facility] Comment on above: Result Comment: Canc elled via OM: Order cancelled - Patient discharged Performed By: #### L 500.4050, L500.4100, L503.0106, L506.1001 #### [facility] [address] [place], [address] PLT Normal 150-450 [facility] Comment on above: Result Comment: Canc elled via OM: Order cancelled - Patient discharged Performed By: #### L 500.4050, L500.4100, L503.0106, L506.1001 #### [facility] [address] [place], [address] RBC Normal 4.6-6.2 [facility] Comment on above: Result Comment: Canc elled via OM: Order cancelled - Patient discharged Performed By: #### L 500.4050, L500.4100, L503.0106, L506.1001 #### [facility] [address] [place], [address] RDW CV Normal 11.6-14.6 [facility] Comment on above: Result Comment: Canc elled via OM: Order cancelled - Patient discharged Performed By: #### L 500.4050, L500.4100, L503.0106, L506.1001 #### [facility] [address] [place], [address] RDW SD Normal 35.1-43.9 [facility] Comment on above: Result Comment: Canc elled via OM: Order cancelled - Patient discharged Performed By: #### L 500.4050, L500.4100, L503.0106, L506.1001 #### [facility] [address] [place], [address] WBC Normal 4.4-11.0 [facility] Comment on above: Result Comment: Canc elled via OM: Order cancelled - Patient discharged Performed By: #### L 500.4050, L500.4100, L503.0106, L506.1001 #### [facility] [address] [place], [address] FL MODIFIED BARIUM SWALLOW S Elyssa 08-05-2025 FL MODIFIED BARIUM SWALLOW STUDY Interpreted By: Terry Ireland and Tom Ortega STUDY: FL MODIFIED BARIUM SWALLOW STUDY;; 08/06/2025 8:38 am INDICATION: Signs/Symptoms:eval for aspiration, dysphagia. COMPARISON: None. ACCESSION NUMBER(S): [id number] ORDERING CLINICIAN: ELAINE MADRIGAL TECHNIQUE: MBSS completed. Informed verbal consent obtained prior to completion of exam. Trials of thin, nectar thick, honey thick, puree, soft-solids, and regular solids given. WARD SERVICE SUPERVISOR: Shannon Santos Phone/Pager: [phone] SPEECH FINDINGS: Speech-Language Pathology Inpatient Modified Barium Swallow Study Patient Name: Fawn Campos : 1935 Today's Date: 08/06/25 Start Time: 800 Stop Time: 830 Time Calculation (min): 30 Modified Barium Swallow Study completed. Informed verbal consent obtained prior to completion of exam. Trials of thin liquids via tsp/straw, mildly (nectar) thick liquids via straw, moderately (honey) thick liquids via straw, and purees were given. WARD SERVICE SUPERVISOR: Shannon Santos WARD SERVICE SUPERVISOR Contact info: [employer] Reason for Referral: C/f aspiration/oropharynge al dysphagia Patient Hx: Fawn Campos is a 89 y.o. 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 Respiratory Status: Room air Current diet: Easy to Chew Solids and Mildly ([place]) Thick Liquids; recommended at nursing facility, per medical team Pain: Pain Scale: 0-10 Ratin DIET RECOMMENDATIONS: NPO with frequent aggressive oral care. . 10 ice chips/hr allowed for pleasure, safe swallow stimulation, and after oral care to prevent buildup of bacteria within the oropharynx . GOC discussions re: assuming the risks of aspiration w/ continued PO intake; suspect pt's swallow rehabilitation poor 2/2 anatomical deficits (i.e., pt will remain at risk for aspiration regardless of any further WARD SERVICE SUPERVISOR intervention). MD aware. WARD SERVICE SUPERVISOR PLAN: Skilled WARD SERVICE SUPERVISOR Services: Skilled WARD SERVICE SUPERVISOR intervention for dysphagia is warranted. WARD SERVICE SUPERVISOR Frequency: pending GOC discussions Discussed POC: patient Discussed Risks/Benefits: Yes Patient/Caregiver Agreeable: Yes Short term goals established: Pt/caregiver/family will demonstrate adequate return of knowledge re: dysphagia POC/diet recommendations/safe swallowing guidelines w/ 100% acc to effectively assist the patient in immediate safety with oral intake and swallowing. Start Date: 08/06/2025 End Date: 09/06/2025 Status: Goal Initiated this date Pt will tolerate least restrictive diet with no overt clinical s/s aspiration 100% of the time. Start Date: 08/06/2025 End Date: 09/06/2025 Status: Goal Initiated this date Education Provided: Results and recommendations per MBSS, with video review; recommendations and POC at this time. Verbal understanding and agreement given on all accounts. Treatment Provided Today: WARD SERVICE SUPERVISOR provided extensive education and training to pt/pt family regarding anatomy/physiology of swallow function, risk factors of aspiration/aspiration pna & how to mitigate factors, diet modifications, and the use of compensatory swallow strategies to promote pt safety upon PO intake. Additional Medical Consults Suggested: GOC Mechanics of the Swallow Summary: ORAL PHASE: Lip Closure - No labial escape/anterior loss of bolus Tongue Control During Bolus Hold - Posterior escape of less than half of the bolus Bolus prep/mastication - Mastication not assessed Bolus transport/lingual motion - Repetitive/disorganize d tongue motion (tongue pumping) Oral residue - Residue collection on oral structure PHARYNGEAL PHASE: Initiation of pharyngeal swallow - Bolus head at pit of pyriforms Soft palate elevation - No bolus between soft palate/pharyngeal wall Laryngeal elevation - Complete superior movement of thyroid cartilage with contact of arytenoids to epiglottic petiole Anterior hyoid excursion - Partial anterior movement Epiglottic movement - Partial inversion Laryngeal vestibule closure - None - wide column of air / contrast in laryngeal vestibule Pharyngeal stripping wave - Absent Pharyngeal contraction (A/P view) - Not tested Pharyngoesophageal segment opening - Partial distension/partial duration with partial obstruction of flow of bolus Tongue base retraction - Wide column of contrast or air between tongue base and pharyngeal wall Pharyngeal residue - Collection of residue within or on the pharyngeal structures ESOPHAGEAL PHASE: Esophageal clearance - Not evaluated *Of note: The A-P bolus follow-through is not intended to be utilized as a diagnostic assessment of the esophagus, rather a tool to observe the biomechanical aspects of the swallow continuum and to inform the need for further evaluation by (more content not included)... [facility] Sterile Cupon 08-05-2025 Extra Tube Hold for add-ons. [facility] Work Phone: Comment on above: Auto resulted. [facility] Work Phone: Urine [place] TubeOrdered By: Reji Jay on 08-05-2025 Extra Tube [facility] Work Phone: [facility] Work Phone: Basic metabolic 2000 panelon 08-04-2025 Anion gap [Moles/Vol] 11 mmol/L 10 - 2 0 mmol/L [facility] Calcium [Mass/Vol] 8.9 mg/dL 8.6 - 10. 3 mg/dL [facility] Chloride [Moles/Vol] 107 mmol/L 98 - 10 7 mmol/L [facility] CO2 [Moles/Vol] 28 mmol/L 21 - 32 mmol/L [facility] Creatinine [Mass/Vol] 0.84 mg/dL 0.50 - 1.30 mg/dL [facility] GFR/1.73 sq M.predicted among non-blacks MDRD (S/P/Bld) [Vol rate/Area] 83 mL/min/{1.73_m2} - PINF [facility] Comment on above: Calculations of leonides mated GFR are performed using the 2020 CKD-EPI Study Refit equation without the race variable for the IDMS-Traceable creatinine methods. https://jasn.asnjournals.org/content//ASN.79399 79407 Glucose [Mass/Vol] 88 mg/dL 74 - 99 mg/dL [facility] Interpretation and review of laboratory results Normal [facility] Potassium [Moles/Vol] 4.0 mmol/L 3.5 - 5.3 mmol/L [facility] Sodium [Moles/Vol] 142 mmol/L 136 - 145 mmol/L [facility] Urea nitrogen [Mass/Vol] 15 mg/dL 6 - 23 mg/dL [facility] Anion gap [Moles/Vol] 11 mmol/L Normal 10-20 [facility] Comment on above: Performed By: #### 5 7021-8 #### KALIN OSBORN ([id number]) [facility] ([facility]) [address] [place] [address] Calcium [Mass/Vol] 8.9 mg/dL Normal 8.6-10.3 [facility] Comment on above: Performed By: #### 5 7021-8 #### KALIN OSBORN ([id number]) [facility] ([facility]) [address] [place] [address] Chloride [Moles/Vol] 107 mmol/L Normal 98-107 [facility] Comment on above: Performed By: #### 5 7021-8 #### KALIN OSBORN ([id number]) [facility] ([facility]) [address] [place] [address] 32398 CO2 [Moles/Vol] 28 mmol/L Normal 21-32 [facility] Comment on above: Performed By: #### 5 7021-8 #### KALIN OSBORN ([id number]) [facility] ([facility]) [address] [place] [address] Creatinine [Mass/Vol] 0.84 mg/dL Normal 0.50-1.30 [facility] Comment on above: Performed By: #### 5 7021-8 #### KALIN OSBORN ([id number]) [facility] ([facility]) [address] [place] [address] 53446 Glomerular filtration rate 83 mL/min/1.73m*2 Normal >60 [facility] Comment on above: Result Comment: Calc ulations of estimated GFR are performed using the 2020 CKD-EPI Study Refit equation without the race variable for the IDMS-Traceable creatinine methods. https://jasn.asnjournals.org/content//ASN.20170 18315 Performed By: #### 5 7021-8 #### KALIN OSBORN ([id number]) [facility] ([facility]) [address] [place] [address] 85665 Glucose [Mass/Vol] 88 mg/dL Normal 74-99 [facility] Comment on above: Performed By: #### 5 7021-8 #### KALIN OSBORN ([id number]) [facility] ([facility]) [address] [place] [address] Potassium [Moles/Vol] 4.0 mmol/L Normal 3.5-5.3 [facility] Comment on above: Performed By: #### 5 7021-8 #### KALIN OSBORN ([id number]) [facility] ([facility]) [address] [place] [address] Sodium [Moles/Vol] 142 mmol/L Normal 136-145 [facility] Comment on above: Performed By: #### 5 7021-8 #### KALIN OSBORN ([id number]) [facility] ([facility]) [address] [place] [address] Urea nitrogen [Mass/Vol] 15 mg/dL Normal 6-23 [facility] Comment on above: Performed By: #### 5 7021-8 #### KALIN OSBORN ([id number]) [facility] ([facility]) [address] [place] [address] Blood type and Indirect anti body screen panel (Bld)on 08-04-2025 ABO group Nom (Bld) A [facility] Blood group antibody screen Ql Negative [facility] D Ag Ql (Bld) Positive [facility] ABO group Nom (Bld) A Normal [facility] Comment on above: Performed By: #### T HYDS #### KALIN OSBORN ([id number]) [facility] ([facility]) [address] [place] [address] Blood group antibody screen Ql Negative [facility] Comment on above: Performed By: #### T HYDS #### KALIN OSBORN ([id number]) [facility] ([facility]) [address] [place] [address] D Ag Ql (Bld) Positive [facility] Comment on above: Performed By: #### T HYDS #### KALIN OSBORN ([id number]) [facility] ([facility]) [address] [place] [address] CBC W Auto Differential pane l (Bld)on 08-04-2025 Basophils (Bld) [#/Vol] 0.05 10*3/uL [facility] Basophils/100 WBC (Bld) 0.7 % 0.0 - 2.0 % [facility] Eosinophils (Bld) [#/Vol] 0.09 10*3/uL [facility] Eosinophils/100 WBC (Bld) 1.3 % 0.0 - 6.0 % [facility] Erythrocyte distribution width (RBC) [Ratio] 12.6 % 11.5 - 14.5 % [facility] Hematocrit (Bld) [Volume fraction] 37.1 % Low 41.0 - 52.0 % [facility] Hemoglobin (Bld) [Mass/Vol] 12.4 g/dL Low 13.5 - 17.5 g/dL [facility] Immature granulocytes (Bld) [#/Vol] 0.02 10*3/uL [facility] Immature granulocytes/100 WBC (Bld) 0.3 % 0.0 - 0.9 % [facility] Comment on above: Immature Granulocyte Count (IG) includes promyelocytes, myelocytes and metamyelocytes but does not include bands. Percent differential counts (%) should be interpreted in the context of the absolute cell counts (cells/UL). Interpretation and review of laboratory results Abnormal [facility] Lymphocytes (Bld) [#/Vol] 1.05 10*3/uL [facility] Lymphocytes/100 WBC (Bld) 15.5 % 13.0 - 44.0 % [facility] MCH (RBC) [Entitic mass] 31.0 pg 26.0 - 34.0 pg [facility] MCHC (RBC) [Mass/Vol] 33.4 g/dL 32.0 - 36.0 g/dL [facility] MCV (RBC) [Entitic vol] 93 fL 80 - 100 fL [facility] Monocytes (Bld) [#/Vol] 0.62 10*3/uL [facility] Monocytes/100 WBC (Bld) 9.1 % 2.0 - 10.0 % [facility] Neutrophils (Bld) [#/Vol] 4.96 10*3/uL [facility] Comment on above: Percent differential counts (%) should be interpreted in the context of the absolute cell counts (cells/uL). Neutrophils/100 WBC (Bld) 73.1 % 40.0 - 80.0 % [facility] Nucleated RBC/100 WBC (Bld) [Ratio] 0.0 % [facility] Platelets (Bld) [#/Vol] 255 10*3/uL [facility] RBC (Bld) [#/Vol] 4.00 10*6/uL Low [facility] WBC (Bld) [#/Vol] 6.8 10*3/uL [facility] Basophils (Bld) [#/Vol] 0.05 x10*3/uL Normal 0.00-0.10 [facility] Comment on above: Performed By: #### 2 4323-8 #### KALIN OSBORN ([id number]) [facility] ([facility]) [address] [place] [address] 86682 Basophils/100 WBC (Bld) 0.7 % Normal 0.0-2.0 [facility] Comment on above: Performed By: #### 2 4323-8 #### KALIN OSBORN ([id number]) [facility] ([facility]) [address] [place] [address] 75443 Eosinophils (Bld) [#/Vol] 0.09 x10*3/uL Normal 0.00-0.40 [facility] Comment on above: Performed By: #### 2 4323-8 #### KALIN OSBORN ([id number]) [facility] ([facility]) [address] [place] [address] 45974 Eosinophils/100 WBC (Bld) 1.3 % Normal 0.0-6.0 [facility] Comment on above: Performed By: #### 2 4323-8 #### KALIN OSBORN ([id number]) [facility] ([facility]) [address] [place] [address] 06013 Erythrocyte distribution width (RBC) [Ratio] 12.6 % Normal 11.5-14.5 [facility] Comment on above: Performed By: #### 2 4323-8 #### KALIN OSBORN ([id number]) [facility] ([facility]) [address] [place] [address] 70460 Hematocrit (Bld) [Volume fraction] 37.1 % Low 41.0-52.0 [facility] Comment on above: Performed By: #### 2 4323-8 #### KALIN OSBORN ([id number]) [facility] ([facility]) [address] [place] [address] 84630 Hemoglobin (Bld) [Mass/Vol] 12.4 g/dL Low 13.5-17.5 [facility] Comment on above: Performed By: #### 2 4323-8 #### KALIN OSBORN ([id number]) [facility] ([facility]) [address] [place] [address] 88718 Immature granulocytes (Bld) [#/Vol] 0.02 x10*3/uL Normal 0.00-0.50 [facility] Comment on above: Performed By: #### 2 4323-8 #### KALIN OSBORN ([id number]) [facility] ([facility]) [address] [place] [address] 74097 Immature granulocytes/100 WBC (Bld) 0.3 % Normal 0.0-0.9 [facility] Comment on above: Result Comment: Steph ture Granulocyte Count (IG) includes promyelocytes, myelocytes and metamyelocytes but does not include bands. Percent differential counts (%) should be interpreted in the context of the absolute cell counts (cells/UL). Performed By: #### 2 4323-8 #### KALIN OSBORN ([id number]) [facility] ([facility]) [address] [place] [address] 63132 Lymphocytes (Bld) [#/Vol] 1.05 x10*3/uL Normal 0.80-3.00 [facility] Comment on above: Performed By: #### 2 4323-8 #### KALIN OSBORN ([id number]) [facility] ([facility]) [address] [place] [address] 99590 Lymphocytes/100 WBC (Bld) 15.5 % Normal 13.0-44.0 [facility] Comment on above: Performed By: #### 2 4323-8 #### KALIN OSBORN ([id number]) [facility] ([facility]) [address] [place] [address] 72530 MCH (RBC) [Entitic mass] 31.0 pg Normal 26.0-34.0 [facility] Comment on above: Performed By: #### 2 4323-8 #### KALIN OSBORN ([id number]) [facility] ([facility]) [address] [place] [address] 61555 MCHC (RBC) [Mass/Vol] 33.4 g/dL Normal 32.0-36.0 [facility] Comment on above: Performed By: #### 2 4323-8 #### KALIN OSBORN ([id number]) [facility] ([facility]) [address] [place] [address] 45436 MCV (RBC) [Entitic vol] 93 fL Normal 80-100 [facility] Comment on above: Performed By: #### 2 432-8 #### KALIN OSBORN ([id number]) [facility] ([facility]) [address] [place] [address] 90687 Monocytes (Bld) [#/Vol] 0.62 x10*3/uL Normal 0.05-0.80 [facility] Comment on above: Performed By: #### 2 4323-8 #### KALIN OSBORN ([id number]) [facility] ([facility]) [address] [place] [address] 99182 Monocytes/100 WBC (Bld) 9.1 % Normal 2.0-10.0 [facility] Comment on above: Performed By: #### 2 4323-8 #### KALIN OSBORN ([id number]) [facility] ([facility]) [address] [place] [address] 24298 Neutrophils (Bld) [#/Vol] 4.96 x10*3/uL Normal 1.60-5.50 [facility] Comment on above: Result Comment: Perc ent differential counts (%) should be interpreted in the context of the absolute cell counts (cells/uL). Performed By: #### 2 4323-8 #### KALIN OSBORN ([id number]) [facility] ([facility]) [address] [place] [address] 70423 Neutrophils/100 WBC (Bld) 73.1 % Normal 40.0-80.0 [facility] Comment on above: Performed By: #### 2 4323-8 #### KALIN OSBORN ([id number]) [facility] ([facility]) [address] [place] [address] 30855 Nucleated RBC/100 WBC (Bld) [Ratio] 0.0 /100 WBCs Normal 0.0-0.0 [facility] Comment on above: Performed By: #### 2 4323-8 #### KALIN OSBORN ([id number]) [facility] ([facility]) [address] [place] [address] 54402 Platelets (Bld) [#/Vol] 255 x10*3/uL Normal 150-450 [facility] Comment on above: Performed By: #### 2 4323-8 #### KALIN OSBORN ([id number]) [facility] ([facility]) [address] [place] [address] 80845 RBC (Bld) [#/Vol] 4.00 x10*6/uL Low 4.50-5.90 [facility] Comment on above: Performed By: #### 2 4323-8 #### KALIN OSBORN ([id number]) [facility] ([facility]) [address] [place] [address] 83729 WBC (Bld) [#/Vol] 6.8 x10*3/uL Normal 4.4-11.3 [facility] Comment on above: Performed By: #### 2 4323-8 #### KALIN OSBORN ([id number]) [facility] ([facility]) [address] [place] [address] 90523 Basophils (Bld) [#/Vol] 0.05 10*3/uL [facility] Basophils/100 WBC (Bld) 0.7 % 0.0 - 2.0 % [facility] Eosinophils (Bld) [#/Vol] 0.15 10*3/uL [facility] Eosinophils/100 WBC (Bld) 2.2 % 0.0 - 6.0 % [facility] Erythrocyte distribution width (RBC) [Ratio] 12.6 % 11.5 - 14.5 % [facility] Hematocrit (Bld) [Volume fraction] 38.3 % Low 41.0 - 52.0 % [facility] Hemoglobin (Bld) [Mass/Vol] 12.3 g/dL Low 13.5 - 17.5 g/dL [facility] Immature granulocytes (Bld) [#/Vol] 0.02 10*3/uL [facility] Immature granulocytes/100 WBC (Bld) 0.3 % 0.0 - 0.9 % [facility] Comment on above: Immature Granulocyte Count (IG) includes promyelocytes, myelocytes and metamyelocytes but does not include bands. Percent differential counts (%) should be interpreted in the context of the absolute cell counts (cells/UL). Interpretation and review of laboratory results Abnormal [facility] Lymphocytes (Bld) [#/Vol] 0.88 10*3/uL [facility] Lymphocytes/100 WBC (Bld) 12.7 % 13.0 - 44.0 % [facility] MCH (RBC) [Entitic mass] 31.1 pg 26.0 - 34.0 pg [facility] MCHC (RBC) [Mass/Vol] 32.1 g/dL 32.0 - 36.0 g/dL [facility] MCV (RBC) [Entitic vol] 97 fL 80 - 100 fL [facility] Monocytes (Bld) [#/Vol] 0.61 10*3/uL [facility] Monocytes/100 WBC (Bld) 8.8 % 2.0 - 10.0 % [facility] Neutrophils (Bld) [#/Vol] 5.20 10*3/uL [facility] Comment on above: Percent differential counts (%) should be interpreted in the context of the absolute cell counts (cells/uL). Neutrophils/100 WBC (Bld) 75.3 % 40.0 - 80.0 % [facility] Nucleated RBC/100 WBC (Bld) [Ratio] 0.0 % [facility] Platelets (Bld) [#/Vol] 224 10*3/uL [facility] RBC (Bld) [#/Vol] 3.96 10*6/uL Low [facility] WBC (Bld) [#/Vol] 6.9 10*3/uL [facility] Basophils (Bld) [#/Vol] 0.05 x10*3/uL Normal 0.00-0.10 [facility] Comment on above: Performed By: #### 5 7021-8 ####KALIN OSBORN ([id number])[facility] ([facility])[address] [place] [address] 67898 Basophils/100 WBC (Bld) 0.7 % Normal 0.0-2.0 [facility] Comment on above: Performed By: #### 5 7021-8 ####KALIN OSBORN ([id number])[facility] ([facility])[address] [place] [address] 96058 Eosinophils (Bld) [#/Vol] 0.15 x10*3/uL Normal 0.00-0.40 [facility] Comment on above: Performed By: #### 5 7021-8 ####KALIN OSBORN ([id number])[facility] [facility])[address] [place] [address] [id number] Eosinophils/100 WBC (Bld) 2.2 % Normal 0.0-6.0 [facility] Comment on above: Performed By: #### 5 7021-8 ####KALIN OSBORN ([id number])[facility] ([facility])[address] [place] [address] [phone] Erythrocyte distribution width (RBC) [Ratio] 12.6 % Normal 11.5-14.5 [facility] Comment on above: Performed By: #### 5 7021-8 ####KALIN OSBORN ([id number])[facility] ([facility])[address] [place] [address] 22877 Hematocrit (Bld) [Volume fraction] 38.3 % Low 41.0-52.0 [facility] Comment on above: Performed By: #### 5 7021-8 ####KALIN OSBORN ([id number])[facility] ([facility])[address] [place] [address] 14115 Hemoglobin (Bld) [Mass/Vol] 12.3 g/dL Low 13.5-17.5 [facility] Comment on above: Performed By: #### 5 7021-8 ####KALIN OSBORN ([id number])[facility] ([facility])[address] [place] [address] 15528 Immature granulocytes (Bld) [#/Vol] 0.02 x10*3/uL Normal 0.00-0.50 [facility] Comment on above: Performed By: #### 5 7021-8 ####KALIN OSBORN ([id number])[facility] ([facility])[address] [place] [address] 01333 Immature granulocytes/100 WBC (Bld) 0.3 % Normal 0.0-0.9 [facility] Comment on above: Result Comment: Steph ture Granulocyte Count (IG) includes promyelocytes, myelocytes and metamyelocytes but does not include bands. Percent differential counts (%) should be interpreted in the context of the absolute cell counts (cells/UL). Performed By: #### 5 7021-8 ####KALIN OSBORN ([id number])[facility] ([facility])[address] [place] [address] 06292 Lymphocytes (Bld) [#/Vol] 0.88 x10*3/uL Normal 0.80-3.00 [facility] Comment on above: Performed By: #### 5 7021-8 ####KALIN OSBORN ([id number])[facility] ([facility])[address] [place] [address] 07606 Lymphocytes/100 WBC (Bld) 12.7 % Normal 13.0-44.0 [facility] Comment on above: Performed By: #### 5 7021-8 ####KALIN OSBORN ([id number])[facility] ([facility])[address] [place] [address] 84901 MCH (RBC) [Entitic mass] 31.1 pg Normal 26.0-34.0 [facility] Comment on above: Performed By: #### 5 7021-8 ####KALIN OSBORN ([id number])[facility] ([facility])[address] [place] [address] 52254 MCHC (RBC) [Mass/Vol] 32.1 g/dL Normal 32.0-36.0 [facility] Comment on above: Performed By: #### 5 7021-8 ####AKLIN OSBORN ([id number])[facility] ([facility])[address] [place] [address] 54690 MCV (RBC) [Entitic vol] 97 fL Normal 80-100 [facility] Comment on above: Performed By: #### 5 7021-8 ####KALIN OSBORN ([id number])[facility] ([facility])[address] [place] [address] 67523 Monocytes (Bld) [#/Vol] 0.61 x10*3/uL Normal 0.05-0.80 [facility] Comment on above: Performed By: #### 5 7021-8 ####KALIN OSBORN ([id number])[facility] ([facility])[address] [place] [address] 53923 Monocytes/100 WBC (Bld) 8.8 % Normal 2.0-10.0 [facility] Comment on above: Performed By: #### 5 7021-8 ####KALIN OSBORN ([id number])[facility] ([facility])[address] [place] [address] 34892 Neutrophils (Bld) [#/Vol] 5.20 x10*3/uL Normal 1.60-5.50 [facility] Comment on above: Result Comment: Perc ent differential counts (%) should be interpreted in the context of the absolute cell counts (cells/uL). Performed By: #### 5 7021-8 ####KALIN OSBORN ([id number])[facility] ([facility])[address] [place] [address] 51291 Neutrophils/100 WBC (Bld) 75.3 % Normal 40.0-80.0 [facility] Comment on above: Performed By: #### 5 7021-8 ####KALIN OSBORN ([id number])[facility] ([facility])[address] [place] [address] 31487 Nucleated RBC/100 WBC (Bld) [Ratio] 0.0 /100 WBCs Normal 0.0-0.0 [facility] Comment on above: Performed By: #### 5 7021-8 ####KALIN OSBORN ([id number])[facility] ([facility])[address] [place] [address] 23352 Platelets (Bld) [#/Vol] 224 x10*3/uL Normal 150-450 [facility] Comment on above: Performed By: #### 5 7021-8 ####KALIN OSBORN ([id number])[facility] ([facility])[address] [place] [address] 72549 RBC (Bld) [#/Vol] 3.96 x10*6/uL Low 4.50-5.90 [facility] Comment on above: Performed By: #### 5 7021-8 ####KALIN OSBORN ([id number])[facility] ([facility])[address] [place] [address] 45365 WBC (Bld) [#/Vol] 6.9 x10*3/uL Normal 4.4-11.3 [facility] Comment on above: Performed By: #### 5 7021-8 ####KALIN OSBORN ([id number])[facility] ([facility])[address] [place] [address] CERVICAL SPINE WO IV CONT [facility] 08-04-2025 CT CERVICAL SPINE WO IV CONTRAST Interpreted By: Henry Kenny, STUDY: CT CERVICAL SPINE WO IV CONTRAST; 08/04/2025 8:22 am INDICATION: Signs/Symptoms:fall. COMPARISON: None. ACCESSION NUMBER(S): [id number] ORDERING CLINICIAN: SANTIAGO MENENDEZ TECHNIQUE: Axial CT images of the cervical spine are obtained. Axial, coronal and sagittal reconstructions are provided for review. Noncontrast CT limited for soft disc. FINDINGS: Fractures: There is no evidence for an acute fracture of the cervical spine. Vertebral Alignment: Minimal scoliosis without traumatic subluxation. Craniocervical Junction: The odontoid process and craniocervical junction are intact. Vertebrae/Disc Spaces: The cervical vertebral body heights are intact. Multilevel cervical degenerative changes noted. 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 Prevertebral/Paraspina l Soft Tissues: The prevertebral and paraspinal soft tissues are unremarkable. Significant right apical pleural thickening. Carotid arterial calcifications [id number]. IMPRESSION: No evidence for an acute fracture or subluxation of the cervical spine. Mild scoliosis with mild multilevel cervical degenerative change. MACRO: None Signed by: Henry Kenny 08/04/2025 8:39 AM Dictation workstation: [id number] [facility] CT CHEST ABDOMEN PELVIS W IV CONTRASTon 08-04-2025 CT CHEST ABDOMEN PELVIS W IV CONTRAST Interpreted By: Radha Raza and Ibrahim Ali STUDY: CT CHEST ABDOMEN PELVIS W IV CONTRAST; 08/04/2025 3:18 pm INDICATION: Signs/Symptoms:fall, SDH new, now new R hip pain COMPARISON: CT chest abdomen pelvis 05/10/2025 ACCESSION NUMBER(S): [id number] ORDERING CLINICIAN: KATHERINE POTTS TECHNIQUE: CT of the chest, abdomen, and pelvis was performed. Contiguous axial images were obtained at 5 mm slice thickness through the chest, and at 3 mm through the abdomen and pelvis. Coronal and sagittal reconstructions at 3 mm slice thickness were performed. 90 ML of Omnipaque 350 was administered intravenously without immediate complication. FINDINGS: CHEST: LUNG/PLEURA/LARGE AIRWAYS: No air space opacity, focal consolidation, pleural effusion/hemothorax, or pneumothorax are appreciated. There are no discrete pulmonary nodules. VESSELS: No traumatic aortic injury is appreciated within the limitations of this non-EKG gated study. The thoracic aorta is of normal course and caliber. Main pulmonary artery and its branches are normal in caliber. Mild coronary artery calcifications are seen.The study is not optimized for evaluation of coronary arteries. HEART: The heart is normal in size. There is no pericardial effusion. MEDIASTINUM AND NATALIA: No pneumomediastinum, abnormal mediastinal fluid collection or mediastinal hematoma are appreciated. No mediastinal, hilar or biaxillary adenopathy is present. The esophagus is normal in course and caliber. CHEST WALL AND LOWER NECK: Multiple subacute fractures of the anterior ribs. No acute fracture or dislocation of the included osseous structures are appreciated. No suspicious osseous lesions are identified. The thoracic wall soft tissues are within normal limits. Reverse left total shoulder arthroplasty. ABDOMEN: LIVER: No focal perfusion abnormality of the liver is appreciated to suggest contusion or laceration. There is no subcapsular hematoma, no perihepatic fluid collection. The liver is normal in size and appearance. GALLBLADDER: The gallbladder is nondistended without evidence of radiopaque stone. BILE DUCTS: The intahepatic and extrahepatic bile ducts are not dilated. PANCREAS: Within normal limits SPLEEN: No parenchymal perfusion deficit of the spleen is appreciated to suggest contusion or laceration. There is no subcapsular hematoma, no perisplenic fluid collection. Stable appearing hypodense lesions ADRENAL GLANDS: The bilateral adrenal glands are unremarkable in appearance. KIDNEYS AND URETERS: No parenchymal perfusion deficit is appreciated in bilateral kidneys to suggest contusion or laceration. There is no subcapsular hematoma, no perinephric fluid collection. No hydroureteronephrosis or nephroureterolithiasis is present. PELVIS: BLADDER: The urinary bladder appears within normal limits. REPRODUCTIVE ORGANS: No pelvic masses. No significant free fluid. BOWEL: Interval placement peg tube when compared to prior 05/10/2025. The stomach is within normal limits. The small bowel is normal in caliber without evidence of focal wall thickening or obstruction. There is no evidence of focal wall thickening or dilatation of the large bowel. The appendix is normal. VESSELS: 4.9 x 3.6 cm infrarenal aortic aneurysm with eccentric mural thrombus (series 301, image 57). 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 1.5 cm x 1.3 cm right common iliac artery aneurysm. The aorta and IVC are within normal limits. The principal vasculature of the abdomen and pelvis is patent. There is moderate atherosclerotic calcification of the abdominal aorta and its branches. PERITONEUM/RETROPERITO NEUM/LYMPH NODES: There is no evidence of intra- or retroperitoneal hematoma. There is no free or loculated fluid collection, no free intraperitoneal air. No abdominopelvic lymphadenopathy is present. BONES AND ABDOMINAL WALL: Acute insufficiency fracture in the right sacral ala (series 201, image 149). Subacute to remote appearing fractures through the right superior and right inferior pubic rami with callus formation. Left hip arthroplasty intact. Severe right hip osteoarthrosis. Diffuse osteopenia. Postoperative changes in the anterior abdominal wall. IMPRESSION: CHEST 1. No acute traumatic injury within the chest. 2. Multiple subacute fractures of several anterior and right anterolateral ribs with callus formation, new compared to 05/10/2025 CT. ABDOMEN - PELVIS 1. Diffuse osteopenia, with likely acute insufficiency fracture of the right sacral ala. 2. Multiple subacute to remote appearing fractures within the right hemipelvis, as described. 3. Stable appearance of large infrarenal aortic aneurysm measuring up to 4.9 cm. 4. Additional chronic findings as described above. I personally reviewed the images/ (more content not included)... [facility] CT Cervical spine WO contras ton 08-04-2025 No evidence for an acute fracture or subluxation of the cervical spine. Mild scoliosis with mild multilevel cervical degenerative change. MACRO: None Signed by: Henry Kenny 08/04/2025 8:39 AM Dictation workstation: [id number] [facility]AL Interpreted By: Henry Messina, STUDY: CT CERVICAL SPINE WO IV CONTRAST; 08/04/2025 8:22 am INDICATION: Signs/Symptoms:fall. COMPARISON: None. ACCESSION NUMBER(S): [id number] ORDERING CLINICIAN: SANTIAGO MENENDEZ TECHNIQUE: Axial CT images of the cervical spine are obtained. Axial, coronal and sagittal reconstructions are provided for review. Noncontrast CT limited for soft disc. FINDINGS: Fractures: There is no evidence for an acute fracture of the cervical spine. Vertebral Alignment: Minimal scoliosis without traumatic subluxation. Craniocervical Junction: The odontoid process and craniocervical junction are intact. Vertebrae/Disc Spaces: The cervical vertebral body heights are intact. Multilevel cervical degenerative changes noted. 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 Prevertebral/Paraspina l Soft Tissues: The prevertebral and paraspinal soft tissues are unremarkable. Significant right apical pleural thickening. Carotid arterial calcifications [id number]-righ t. [facility] Henry Kenny MD - 08/04/2025 Interpreted By: Henry Kenny, STUDY: CT CERVICAL SPINE WO IV CONTRAST; 08/04/2025 8:22 am INDICATION: Signs/Symptoms:fall. COMPARISON: None. ACCESSION NUMBER(S): [id number] ORDERING CLINICIAN: SANTIAGO MENENDEZ TECHNIQUE: Axial CT images of the cervical spine are obtained. Axial, coronal and sagittal reconstructions are provided for review. Noncontrast CT limited for soft disc. FINDINGS: Fractures: There is no evidence for an acute fracture of the cervical spine. Vertebral Alignment: Minimal scoliosis without traumatic subluxation. Craniocervical Junction: The odontoid process and craniocervical junction are intact. Vertebrae/Disc Spaces: The cervical vertebral body heights are intact. Multilevel cervical degenerative changes noted. 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 Prevertebral/Paraspina l Soft Tissues: The prevertebral and paraspinal soft tissues are unremarkable. Significant right apical pleural thickening. Carotid arterial calcifications [id number]-righ t. IMPRESSION: No evidence for an acute fracture or subluxation of the cervical spine. Mild scoliosis with mild multilevel cervical degenerative change. MACRO: None Signed by: Henry Kenny 08/04/2025 8:39 AM Dictation workstation: [id number] [facility] Work Phone: CT Cervical spine WO contras tOrdered By: Henry Kenny on 08-04-2025 [facility] Work Phone: CT Chest and Abdomen and Pel vis W contrast Sagar 08-04-2025 CHEST 1. No acute traumatic injury within the chest. 2. Multiple subacute fractures of several anterior and right anterolateral ribs with callus formation, new compared to 05/10/2025 CT. ABDOMEN - PELVIS 1. Diffuse osteopenia, with likely acute insufficiency fracture of the right sacral ala. 2. Multiple subacute to remote appearing fractures within the right hemipelvis, as described. 3. Stable appearance of large infrarenal aortic aneurysm measuring up to 4.9 cm. 4. Additional chronic findings as described above. I personally reviewed the images/study and I agree with Jim Mayfield MD's findings as stated. This study was interpreted at [place], [place]. MACRO: None Signed by: Radha Raza 08/04/2025 5:23 PM Dictation workstation: [id number] [facility] Interpreted By: Radha Raza, and Chaparro Fernandez STUDY: CT CHEST ABDOMEN PELVIS W IV CONTRAST; 08/04/2025 3:18 pm INDICATION: Signs/Symptoms:fall, SDH new, now new R hip pain COMPARISON: CT chest abdomen pelvis 05/10/2025 ACCESSION NUMBER(S): [id number] ORDERING CLINICIAN: KATHERINE POTTS TECHNIQUE: CT of the chest, abdomen, and pelvis was performed. Contiguous axial images were obtained at 5 mm slice thickness through the chest, and at 3 mm through the abdomen and pelvis. Coronal and sagittal reconstructions at 3 mm slice thickness were performed. 90 ML of Omnipaque 350 was administered intravenously without immediate complication. FINDINGS: CHEST: LUNG/PLEURA/LARGE AIRWAYS: No air space opacity, focal consolidation, pleural effusion/hemothorax, or pneumothorax are appreciated. There are no discrete pulmonary nodules. VESSELS: No traumatic aortic injury is appreciated within the limitations of this non-EKG gated study. The thoracic aorta is of normal course and caliber. Main pulmonary artery and its branches are normal in caliber. Mild coronary artery calcifications are seen.The study is not optimized for evaluation of coronary arteries. HEART: The heart is normal in size. There is no pericardial effusion. MEDIASTINUM AND NATALIA: No pneumomediastinum, abnormal mediastinal fluid collection or mediastinal hematoma are appreciated. No mediastinal, hilar or biaxillary adenopathy is present. The esophagus is normal in course and caliber. CHEST WALL AND LOWER NECK: Multiple subacute fractures of the anterior ribs. No acute fracture or dislocation of the included osseous structures are appreciated. No suspicious osseous lesions are identified. The thoracic wall soft tissues are within normal limits. Reverse left total shoulder arthroplasty. ABDOMEN: LIVER: No focal perfusion abnormality of the liver is appreciated to suggest contusion or laceration. There is no subcapsular hematoma, no perihepatic fluid collection. The liver is normal in size and appearance. GALLBLADDER: The gallbladder is nondistended without evidence of radiopaque stone. BILE DUCTS: The intahepatic and extrahepatic bile ducts are not dilated. PANCREAS: Within normal limits SPLEEN: No parenchymal perfusion deficit of the spleen is appreciated to suggest contusion or laceration. There is no subcapsular hematoma, no perisplenic fluid collection. Stable appearing hypodense lesions ADRENAL GLANDS: The bilateral adrenal glands are unremarkable in appearance. KIDNEYS AND URETERS: No parenchymal perfusion deficit is appreciated in bilateral kidneys to suggest contusion or laceration. There is no subcapsular hematoma, no perinephric fluid collection. No hydroureteronephrosis or nephroureterolithiasis is present. PELVIS: BLADDER: The urinary bladder appears within normal limits. REPRODUCTIVE ORGANS: No pelvic masses. No significant free fluid. BOWEL: Interval placement peg tube when compared to prior 05/10/2025. The stomach is within normal limits. The small bowel is normal in caliber without evidence of focal wall thickening or obstruction. There is no evidence of focal wall thickening or dilatation of the large bowel. The appendix is normal. VESSELS: 4.9 x 3.6 cm infrarenal aortic aneurysm with eccentric mural thrombus (series 301, image 57). 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 1.5 cm x 1.3 cm right common iliac artery aneurysm. The aorta and IVC are within normal limits. The principal vasculature of the abdomen and pelvis is patent. There is moderate atherosclerotic calcification of the abdominal aorta and its branches. PERITONEUM/RETROPERITO NEUM/LYMPH NODES: There is no evidence of intra- or retroperitoneal hematoma. There is no free or loculated fluid collection, no free intraperitoneal air. No abdominopelvic lymphadenopathy is present. BONES AND ABDOMINAL WALL: Acute insufficiency fracture in the right sacral ala (series 201, image 149). Subacute to remote appearing fractures through the right superior and right inferior pubic rami with callus formation. Left hip arthroplasty intact. Severe right hip osteoarthrosis. Diffuse osteopenia. Postoperative changes in the anterior abdominal wall. [facility] Radha Raza MD - 08/04/2025 Interpreted By: Radha Raza, and Chaparro Fernandez STUDY: CT CHEST ABDOMEN PELVIS W IV CONTRAST; 08/04/2025 3:18 pm INDICATION: Signs/Symptoms:fall, SDH new, now new R hip pain COMPARISON: CT chest abdomen pelvis 05/10/2025 ACCESSION NUMBER(S): [id number] ORDERING CLINICIAN: KATHERINE POTTS TECHNIQUE: CT of the chest, abdomen, and pelvis was performed. Contiguous axial images were obtained at 5 mm slice thickness through the chest, and at 3 mm through the abdomen and pelvis. Coronal and sagittal reconstructions at 3 mm slice thickness were performed. 90 ML of Omnipaque 350 was administered intravenously without immediate complication. FINDINGS: CHEST: LUNG/PLEURA/LARGE AIRWAYS: No air space opacity, focal consolidation, pleural effusion/hemothorax, or pneumothorax are appreciated. There are no discrete pulmonary nodules. VESSELS: No traumatic aortic injury is appreciated within the limitations of this non-EKG gated study. The thoracic aorta is of normal course and caliber. Main pulmonary artery and its branches are normal in caliber. Mild coronary artery calcifications are seen.The study is not optimized for evaluation of coronary arteries. HEART: The heart is normal in size. There is no pericardial effusion. MEDIASTINUM AND NATALIA: No pneumomediastinum, abnormal mediastinal fluid collection or mediastinal hematoma are appreciated. No mediastinal, hilar or biaxillary adenopathy is present. The esophagus is normal in course and caliber. CHEST WALL AND LOWER NECK: Multiple subacute fractures of the anterior ribs. No acute fracture or dislocation of the included osseous structures are appreciated. No suspicious osseous lesions are identified. The thoracic wall soft tissues are within normal limits. Reverse left total shoulder arthroplasty. ABDOMEN: LIVER: No focal perfusion abnormality of the liver is appreciated to suggest contusion or laceration. There is no subcapsular hematoma, no perihepatic fluid collection. The liver is normal in size and appearance. GALLBLADDER: The gallbladder is nondistended without evidence of radiopaque stone. BILE DUCTS: The intahepatic and extrahepatic bile ducts are not dilated. PANCREAS: Within normal limits SPLEEN: No parenchymal perfusion deficit of the spleen is appreciated to suggest contusion or laceration. There is no subcapsular hematoma, no perisplenic fluid collection. Stable appearing hypodense lesions ADRENAL GLANDS: The bilateral adrenal glands are unremarkable in appearance. KIDNEYS AND URETERS: No parenchymal perfusion deficit is appreciated in bilateral kidneys to suggest contusion or laceration. There is no subcapsular hematoma, no perinephric fluid collection. No hydroureteronephrosis or nephroureterolithiasis is present. PELVIS: BLADDER: The urinary bladder appears within normal limits. REPRODUCTIVE ORGANS: No pelvic masses. No significant free fluid. BOWEL: Interval placement peg tube when compared to prior 05/10/2025. The stomach is within normal limits. The small bowel is normal in caliber without evidence of focal wall thickening or obstruction. There is no evidence of focal wall thickening or dilatation of the large bowel. The appendix is normal. VESSELS: 4.9 x 3.6 cm infrarenal aortic aneurysm with eccentric mural thrombus (series 301, image 57). 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 1.5 cm x 1.3 cm right common iliac artery aneurysm. The aorta and IVC are within normal limits. The principal vasculature of the abdomen and pelvis is patent. There is moderate atherosclerotic calcification of the abdominal aorta and its branches. PERITONEUM/RETROPERITO NEUM/LYMPH NODES: There is no evidence of intra- or retroperitoneal hematoma. There is no free or loculated fluid collection, no free intraperitoneal air. No abdominopelvic lymphadenopathy is present. BONES AND ABDOMINAL WALL: Acute insufficiency fracture in the right sacral ala (series 201, image 149). Subacute to remote appearing fractures through the right superior and right inferior pubic rami with callus formation. Left hip arthroplasty intact. Severe right hip osteoarthrosis. Diffuse osteopenia. Postoperative changes in the anterior abdominal wall. IMPRESSION: CHEST 1. No acute traumatic injury within the chest. 2. Multiple subacute fractures of several anterior and right anterolateral ribs with callus formation, new compared to 05/10/2025 CT. ABDOMEN - PELVIS 1. Diffuse osteopenia, with likely acute insufficiency fracture of the right sacral ala. 2. Multiple subacute to remote appearing fractures within the right hemipelvis, as described. 3. Stable appearance of large infrarenal aortic aneurysm measuring up to 4 (more content not included)... [facility] Work Phone: CT Chest and Abdomen and Pel vis W contrast IVOrdered By: Radha Raza on 08-04-2025 [facility] Work Phone: CT HEAD WO IV CONTRASTon CT HEAD WO IV CONTRAST Interpreted By: Gracie Carpenter and Liu Scott STUDY: CT HEAD WO IV CONTRAST; 08/04/2025 3:18 pm INDICATION: Signs/Symptoms:SDH stability scan. COMPARISON: CT head 08/04/[address] head 05/10/2025 ACCESSION NUMBER(S): [id number] ORDERING CLINICIAN: KATHERINE POTTS TECHNIQUE: Noncontrast axial CT scan of head was performed. Angled reformats in brain and bone windows were generated. The images were reviewed in bone, brain, blood and soft tissue windows. FINDINGS: There is overall stable appearance of the mixed density subdural collection in the right parafalcine region measuring estimated 3.6 x 0.8 cm (Series 205, Image 65) and (Series 206, Image 34). There is decreased conspicuity of subtle hyperattenuation along the left anterior frontal lobe (Series 201, Image 19) in comparison to remote CT examination from 05/10/2025. There is no new or enlarging extra-axial fluid collection. No significant mass effect, midline shift, or hydrocephalus. No acute loss of the callaway-white differentiation. No intraparenchymal hemorrhage. No calvarial fracture or sizable scalp hematoma. Paranasal sinuses and mastoids are clear. Evidence of bilateral lens surgery. IMPRESSION: Stable appearance of mixed density right parafalcine subdural hematoma without significant mass effect or midline shift. No new or enlarging intracranial hemorrhage. I personally reviewed the images/study and I agree with the findings as stated by resident physician Ramiro Weber MD. This study was interpreted at [facility], [place], [place]. MACRO: None Signed by: Gracie Carpenter 08/04/2025 4:05 PM Dictation workstation: [id number] Normal [facility] CT HEAD WO IV CONTRAST Interpreted By: Vinicius Dobbs, STUDY: CT HEAD WO IV CONTRAST; 08/04/2025 8:22 am INDICATION: Signs/Symptoms:fall. COMPARISON: 05/10/2025 ACCESSION NUMBER(S): [id number] ORDERING CLINICIAN: SANTIAGO MENENDEZ TECHNIQUE: Sequential trans axial images were obtained . FINDINGS: INTRACRANIAL: There is kknm-mn-mkdllcje prominence of the cortical sulci indicating atrophy. Additionally there has been resolution of greater CSF prominence at the right convexity compared to the prior examination probably due to resolution of the hygroma or liquified subdural hematoma. There is moderate ventriculomegaly, again consistent with atrophy. Ksgl-qz-bgsnuisc decreased attenuation of the periventricular and long tracks of the white matter most consistent with gliosis from arterial disease. Of note is increased attenuation along the right aspect of the falx anteriorly. This measures up to 3.5 cm in length and 8 mm in thickness best seen on sagittal image 40 of series 9. Small subarachnoid hemorrhage at the right parietal-occipital region on the prior examination has resolved. A small foci of attenuation along the lateral margin of right frontal lobe on image 34 of series 2 is similar to the previous examination and was suspected to be subarachnoid hemorrhage, but more likely artifactual given the time interval. EXTRACRANIAL: Visualized paranasal sinuses and mastoids are clear. There is slight concavity of the floor of the anterior fossa on the right, again suspected to be a fracture as on the prior exam. The calvarium otherwise is intact. Moderate atherosclerotic calcification at the carotid siphon. IMPRESSION: Right parafalcine subdural hematoma as described. Resolution of focal subarachnoid hemorrhage at the right parietal-occipital region previously. Foci of attenuation at the right frontal lobe is probably artifactual, but attention at follow-up recommended as this was suspected to be hemorrhage on the prior exam. MACRO: Vinicius Dobbs discussed the significance and urgency of this critical finding by EPIC secure chat with SANTIAGO MENENDEZ on 08/04/2025 at 9:10 am. (-RCF-) Findings: See findings. Signed by: Vinicius Dobbs 08/04/2025 9:12 AM Dictation workstation: [id number] [facility] CT Head WO contraston 2024 Stable appearance of mixed density right parafalcine subdural hematoma without significant mass effect or midline shift. No new or enlarging intracranial hemorrhage. I personally reviewed the images/study and I agree with the findings as stated by resident physician Ramiro Weber MD. This study was interpreted at [facility], [place], [place]. MACRO: None Signed by: Gracie Carpenter 08/04/2025 4:05 PM Dictation workstation: [id number] [facility] Interpreted By: Gracie Carpenter and Gus Rubio STUDY: CT HEAD WO IV CONTRAST; 08/04/2025 3:18 pm INDICATION: Signs/Symptoms:SDH stability scan. COMPARISON: CT head 08/04/[address] head 05/10/2025 ACCESSION NUMBER(S): [id number] ORDERING CLINICIAN: KATHERINE POTTS TECHNIQUE: Noncontrast axial CT scan of head was performed. Angled reformats in brain and bone windows were generated. The images were reviewed in bone, brain, blood and soft tissue windows. FINDINGS: There is overall stable appearance of the mixed density subdural collection in the right parafalcine region measuring estimated 3.6 x 0.8 cm (Series 205, Image 65) and (Series 206, Image 34). There is decreased conspicuity of subtle hyperattenuation along the left anterior frontal lobe (Series 201, Image 19) in comparison to remote CT examination from 05/10/2025. There is no new or enlarging extra-axial fluid collection. No significant mass effect, midline shift, or hydrocephalus. No acute loss of the callaway-white differentiation. No intraparenchymal hemorrhage. No calvarial fracture or sizable scalp hematoma. Paranasal sinuses and mastoids are clear. Evidence of bilateral lens surgery. [facility] Gracie Carpenter MD - 08/04/2025 Interpreted By: Gracie Carpenter and Liu Scott STUDY: CT HEAD WO IV CONTRAST; 08/04/2025 3:18 pm INDICATION: Signs/Symptoms:SDH stability scan. COMPARISON: CT head 08/04/[address] head 05/10/2025 ACCESSION NUMBER(S): [id number] ORDERING CLINICIAN: KATHERINE POTTS TECHNIQUE: Noncontrast axial CT scan of head was performed. Angled reformats in brain and bone windows were generated. The images were reviewed in bone, brain, blood and soft tissue windows. FINDINGS: There is overall stable appearance of the mixed density subdural collection in the right parafalcine region measuring estimated 3.6 x 0.8 cm (Series 205, Image 65) and (Series 206, Image 34). There is decreased conspicuity of subtle hyperattenuation along the left anterior frontal lobe (Series 201, Image 19) in comparison to remote CT examination from 05/10/2025. There is no new or enlarging extra-axial fluid collection. No significant mass effect, midline shift, or hydrocephalus. No acute loss of the callaway-white differentiation. No intraparenchymal hemorrhage. No calvarial fracture or sizable scalp hematoma. Paranasal sinuses and mastoids are clear. Evidence of bilateral lens surgery. IMPRESSION: Stable appearance of mixed density right parafalcine subdural hematoma without significant mass effect or midline shift. No new or enlarging intracranial hemorrhage. I personally reviewed the images/study and I agree with the findings as stated by resident physician Ramiro Weber MD. This study was interpreted at [facility] [place]. MACRO: None Signed by: Gracie Carpenter 08/04/2025 4:05 PM Dictation workstation: [id number] [facility] Work Phone: Right parafalcine subdural hematoma as described. Resolution of focal subarachnoid hemorrhage at the right parietal-occipital region previously. Foci of attenuation at the right frontal lobe is probably artifactual, but attention at follow-up recommended as this was suspected to be hemorrhage on the prior exam. MACRO: Vinicius Dobbs discussed the significance and urgency of this critical finding by EPIC secure chat with SANTIAGO MENENDEZ on 08/04/2025 at 9:10 am. (-RCF-) Findings: See findings. Signed by: Vinicius Dobbs 08/04/2025 9:12 AM Dictation workstation: [id number] [facility] Interpreted By: Vinicius Dobbs, STUDY: CT HEAD WO IV CONTRAST; 08/04/2025 8:22 am INDICATION: Signs/Symptoms:fall. COMPARISON: 05/10/2025 ACCESSION NUMBER(S): [id number] ORDERING CLINICIAN: SANTIAGO MENENDEZ TECHNIQUE: Sequential trans axial images were obtained . FINDINGS: INTRACRANIAL: There is rdmo-ht-pamggehb prominence of the cortical sulci indicating atrophy. Additionally there has been resolution of greater CSF prominence at the right convexity compared to the prior examination probably due to resolution of the hygroma or liquified subdural hematoma. There is moderate ventriculomegaly, again consistent with atrophy. Xgyt-xq-rbkcttsx decreased attenuation of the periventricular and long tracks of the white matter most consistent with gliosis from arterial disease. Of note is increased attenuation along the right aspect of the falx anteriorly. This measures up to 3.5 cm in length and 8 mm in thickness best seen on sagittal image 40 of series 9. Small subarachnoid hemorrhage at the right parietal-occipital region on the prior examination has resolved. A small foci of attenuation along the lateral margin of right frontal lobe on image 34 of series 2 is similar to the previous examination and was suspected to be subarachnoid hemorrhage, but more likely artifactual given the time interval. EXTRACRANIAL: Visualized paranasal sinuses and mastoids are clear. There is slight concavity of the floor of the anterior fossa on the right, again suspected to be a fracture as on the prior exam. The calvarium otherwise is intact. Moderate atherosclerotic calcification at the carotid siphon. [facility] Vinicius Dobbs MD -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 (U)on 08-04-2025 Appearance (U) Clear Clear [facility] Bilirubin (U) [Mass/Vol] Negative NEGATIVE mg/dL [facility] Color (U) Colorless Abnormal Light-Yellow , Yellow, Dark-Yellow [facility] Glucose Auto test strip (U) [Mass/Vol] Normal Normal mg/dL [facility] Interpretation and review of laboratory results Abnormal [facility] Ketones (U) [Mass/Vol] Negative NEGAT DERRELL mg/dL [facility] Leukocyte esterase Auto test strip Ql (U) Negative NEGATIVE [facility] Nitrite Auto test strip Ql (U) Negative NEGATIVE [facility] pH (U) 6.5 [pH] 5.0, 5.5, 6.0, 6.5, 7.0, 7.5, 8.0 [facility] Protein (U) [Mass/Vol] Negative NEGAT DERRELL, 10 (TRACE), 20 (TRACE) mg/dL [facility] RBC (U) [#/Vol] Negative NEGATIVE mg/dL [facility] Specific gravity (U) [Rel density] 1.010 1.005 - 1.035 [facility] Urobilinogen (U) [Mass/Vol] Normal Normal mg/dL [facility] Appearance (U) Clear Normal Clear [facility] Comment on above: Performed By: #### 5 8077-9 ####KALIN OSBORN ([id number])[facility] ([facility] [place] [address] Bilirubin (U) [Mass/Vol] Negative Normal NEGATIVE [facility] Comment on above: Performed By: #### 5 8077-9 ####KALIN OSBORN ([id number])[facility] ([facility])[address] [place] [address] Color (U) Colorless Normal Light-Yellow , Yellow, Dark-Yellow [facility] Comment on above: Performed By: #### 5 8077-9 ####KALIN OSBORN ([id number])[facility] ([facility])[address] [place] [address] 84880 Glucose Auto test strip (U) [Mass/Vol] Normal Normal Normal [facility] Comment on above: Performed By: #### 5 8077-9 ####KALIN OSBORN ([id number])[facility] ([facility])[address] [place] [address] Ketones (U) [Mass/Vol] Negative Normal NEGATIVE [facility] Comment on above: Performed By: #### 5 8077-9 ####KALIN OSBORN ([id number])[facility] ([facility])[address] [place], [place] [id number] Leukocyte esterase Auto test strip Ql (U) Negative Normal NEGATIVE [facility] Comment on above: Performed By: #### 5 8077-9 ####KALIN OSBORN ([id number])[facility] ([facility])[address] [place], [place] [address] Nitrite Auto test strip Ql (U) Negative Normal NEGATIVE [facility] Comment on above: Performed By: #### 5 8077-9 ####KALIN OSBORN ([id number])[facility] ([facility])[address] [place] [address] 80068 pH (U) 6.5 [pH] Normal 5.0, 5.5, 6.0, 6.5, 7.0, 7.5, 8.0 [facility] Comment on above: Performed By: #### 5 8077-9 ####KALIN OSBORN ([id number])[facility] ([facility])[address] [place] [address]21[address] Protein (U) [Mass/Vol] Negative Normal NEGAT DERRELL, 10 (TRACE), 20 (TRACE) [facility] Comment on above: Performed By: #### 5 8077-9 ####KALIN OSBORN ([id number])[facility] ([facility])[address] [place] [address] RBC (U) [#/Vol] Negative Normal NEGATIVE [facility] Comment on above: Performed By: #### 5 8077-9 ####KALIN OSBORN ([id number])[facility] ([facility])[address] [place] [address] Specific gravity (U) [Rel density] 1.010 Normal 1.005-1.035 [facility] Comment on above: Performed By: #### 5 8077-9 ####KALIN OSBORN ([id number])[facility] ([facility])[address] [place] [address] Urobilinogen (U) [Mass/Vol] Normal Normal Normal [facility] Comment on above: Performed By: #### 5 8077-9 ####KALIN OSBORN ([id number])[facility] ([facility])[address] [place] [address] XR CHEST 1 VIEWon 08-04-2025 XR CHEST 1 VIEW STUDY: Chest Radiograph; 08/04/2025, 0751 INDICATION: Weakness. COMPARISON: XR chest 05/10/2025, CT chest 05/10/2025, XR chest 11/15/2023. ACCESSION NUMBER(S): [id number] ORDERING CLINICIAN: SANTIAGO MENENDEZ TECHNIQUE: Frontal chest was obtained at 0751 hours. FINDINGS: CARDIOMEDIASTINAL SILHOUETTE: Cardiomediastinal silhouette is normal in size and configuration. LUNGS: Calcified granuloma in the right midlung zone. Hazy opacity in the right midlung zone, new compared to prior. Linear atelectasis in the left base. ABDOMEN: No remarkable upper abdominal findings. BONES: No acute osseous changes. IMPRESSION: Hazy opacity in the right midlung zone, new compared to prior. Correlate clinically for possible pneumonia. Signed by Nguyễn Saucedo MD [facility] XR Chest Single viewon 08-04 Hazy opacity in the right midlung zone, new compared to prior. Correlate clinically for possible pneumonia. Signed by Nguyễn Saucedo MD TELERADIOLOGY STUDY: Chest Radiograph; 08/04/2025, 750 INDICATION: Weakness. COMPARISON: XR chest 05/10/2025, CT chest 05/10/2025, XR chest 11/15/2023. ACCESSION NUMBER(S): [id number] ORDERING CLINICIAN: SANTIAGO MENENDEZ TECHNIQUE: Frontal chest was obtained at 0751 hours. FINDINGS: CARDIOMEDIASTINAL SILHOUETTE: Cardiomediastinal silhouette is normal in size and configuration. LUNGS: Calcified granuloma in the right midlung zone. Hazy opacity in the right midlung zone, new compared to prior. Linear atelectasis in the left base. ABDOMEN: No remarkable upper abdominal findings. BONES: No acute osseous changes. TELERADIOLOGY Nguyễn Saucedo MD - 08/04/2025 STUDY: Chest Radiograph; 08/04/2025, 075 INDICATION: Weakness. COMPARISON: XR chest 05/10/2025, CT chest 05/10/2025, XR chest 11/15/2023. ACCESSION NUMBER(S): [id number] ORDERING CLINICIAN: SANTIAGO MENENDEZ TECHNIQUE: Frontal chest was obtained at 0751 hours. FINDINGS: CARDIOMEDIASTINAL SILHOUETTE: Cardiomediastinal silhouette is normal in size and configuration. LUNGS: Calcified granuloma in the right midlung zone. Hazy opacity in the right midlung zone, new compared to prior. Linear atelectasis in the left base. ABDOMEN: No remarkable upper abdominal findings. BONES: No acute osseous changes. IMPRESSION: Hazy opacity in the right midlung zone, new compared to prior. Correlate clinically for possible pneumonia. Signed by Nguyễn Saucedo MD [facility] Work Phone: Radiology Study observation (narrative) [facility] Work Phone: XR Chest Single viewOrdered By: Nguyễn Saucedo on 08-04-2025 [facility] Work Phone: XR FEMUR RIGHT 2+ VIEWSon XR FEMUR RIGHT 2+ VIEWS Interpreted By: Clement Estevez, STUDY: XR FEMUR RIGHT 2+ VIEWS; XR HIP RIGHT WITH PELVIS WHEN PERFORMED 2 OR 3 VIEWS; ; 08/04/2025 3:00 pm INDICATION: Signs/Symptoms:fall r hip pain; Signs/Symptoms:r hip ppain fall. COMPARISON: None. ACCESSION NUMBER(S): [id number]; [id number] ORDERING CLINICIAN: KATHERINE POTTS FINDINGS: There is a mildly displaced fracture through the right superior pubic ramus. There is a mild displaced fracture through the right inferior pubic ramus. Callus formation sclerosis at this location suggestive of a subacute injury. There is a remote fracture through the left inferior pubic ramus as well with sclerosis. No other fracture seen. There is no dislocation. There is severe joint space narrowing with osteophytosis across the right hip. Left total hip arthroplasty present. Extensive vascular calcifications present. IMPRESSION: Mildly displaced fractures through the right superior and right inferior pubic rami with callus formation suggestive of subacute chronicity. Remote left inferior pubic ramus as well. No other fracture seen about the right hip. Severe right hip osteoarthritis. MACRO: None Signed by: Clement Estevez 08/04/2025 3:05 PM Dictation workstation: [id number] [facility] XR HIP RIGHT WITH PELVIS WHE N PERFORMED 2 OR 3 VIEWSon 08-04-2025 XR HIP RIGHT WITH PELVIS WHEN PERFORMED 2 OR 3 VIEWS Interpreted By: Clement Estevez, STUDY: XR FEMUR RIGHT 2+ VIEWS; XR HIP RIGHT WITH PELVIS WHEN PERFORMED 2 OR 3 VIEWS; ; 08/04/2025 3:00 pm INDICATION: Signs/Symptoms:fall r hip pain; Signs/Symptoms:r hip ppain fall. COMPARISON: None. ACCESSION NUMBER(S): [id number]; [id number] ORDERING CLINICIAN: KATHERINE POTTS FINDINGS: There is a mildly displaced fracture through the right superior pubic ramus. There is a mild displaced fracture through the right inferior pubic ramus. Callus formation sclerosis at this location suggestive of a subacute injury. There is a remote fracture through the left inferior pubic ramus as well with sclerosis. No other fracture seen. There is no dislocation. There is severe joint space narrowing with osteophytosis across the right hip. Left total hip arthroplasty present. Extensive vascular calcifications present. IMPRESSION: Mildly displaced fractures through the right superior and right inferior pubic rami with callus formation suggestive of subacute chronicity. Remote left inferior pubic ramus as well. No other fracture seen about the right hip. Severe right hip osteoarthritis. MACRO: None Signed by: Clement Estevez 08/04/2025 3:05 PM Dictation workstation: [id number] [facility] Basic Metabolic Profile (BMP )on 07-29-2025 BUN Normal 4-19 [facility] Comment on above: Result Comment: Canc elled via OM: Order cancelled - Patient discharged Performed By: #### L 500.4050, L500.4100, L503.0106, L506.1001 #### [facility] [address] [place], [address] BUN/CRE Normal 10-20 [facility] Comment on above: Result Comment: Canc elled via OM: Order cancelled - Patient discharged Performed By: #### L 500.4050, L500.4100, L503.0106, L506.1001 #### [facility] [address] [place], [address] Calcium Normal 7.6-11.0 [facility] Comment on above: Result Comment: Canc elled via OM: Order cancelled - Patient discharged Performed By: #### L 500.4050, L500.4100, L503.0106, L506.1001 #### [facility] [address] [place], [address] CL Normal 98-108 [facility] Comment on above: Result Comment: Canc elled via OM: Order cancelled - Patient discharged Performed By: #### L 500.4050, L500.4100, L503.0106, L506.1001 #### [facility] [address] [place], [address] CO2 Normal 21.0-32.0 [facility] Comment on above: Result Comment: Canc elled via OM: Order cancelled - Patient discharged Performed By: #### L 500.4050, L500.4100, L503.0106, L506.1001 #### [facility] [address] [place], [address] CREAT,SERUM Normal 0.70-1.20 [facility] Comment on above: Result Comment: Canc elled via OM: Order cancelled - Patient discharged Performed By: #### L 500.4050, L500.4100, L503.0106, L506.1001 #### [facility] [address] [place], [address] eGFR Normal >60 [facility] Comment on above: Result Comment: Canc elled via OM: Order cancelled - Patient discharged Performed By: #### L 500.4050, L500.4100, L503.0106, L506.1001 #### [facility] [address] [place], [address] GAP Normal 5-15 [facility] Comment on above: Result Comment: Canc elled via OM: Order cancelled - Patient discharged Performed By: #### L 500.4050, L500.4100, L503.0106, L506.1001 #### [facility] [address] [place], [address] GLU Normal 70-99 [facility] Comment on above: Result Comment: Canc elled via OM: Order cancelled - Patient discharged Performed By: #### L 500.4050, L500.4100, L503.0106, L506.1001 #### [facility] [address] [place], [address] Potassium Normal 3.3-5.1 [facility] Comment on above: Result Comment: Canc elled via OM: Order cancelled - Patient discharged Performed By: #### L 500.4050, L500.4100, L503.0106, L506.1001 #### [facility] [address] [place], [address] Basic Metabolic Profile (BMP) Normal 133-145 [facility] Comment on above: Result Comment: Canc elled via OM: Order cancelled - Patient discharged Performed By: #### L 500.4050, L500.4100, L503.0106, L506.1001 #### [facility] [address] [place], [address] CBC W/Diff, Automatedon 10-0 -2024 Absolute Neut Normal 2.0-7.7 [facility] Comment on above: Result Comment: Canc elled via OM: Order cancelled - Patient discharged Performed By: #### L 500.4050, L500.4100, L503.0106, L506.1001 #### [facility] [address] [place], [address] HCT Normal 40-54 [facility] Comment on above: Result Comment: Canc elled via OM: Order cancelled - Patient discharged Performed By: #### L 500.4050, L500.4100, L503.0106, L506.1001 #### [facility] [address] [place], [address] HGB Normal 13.0-16.5 [facility] Comment on above: Result Comment: Canc elled via OM: Order cancelled - Patient discharged Performed By: #### L 500.4050, L500.4100, L503.0106, L506.1001 #### [facility] [address] [place], [address] MCH Normal 27.0-32.0 [facility] Comment on above: Result Comment: Canc elled via OM: Order cancelled - Patient discharged Performed By: #### L 500.4050, L500.4100, L503.0106, L506.1001 #### [facility] [address] [place], [address] MCHC Normal 32-36 [facility] Comment on above: Result Comment: Canc elled via OM: Order cancelled - Patient discharged Performed By: #### L 500.4050, L500.4100, L503.0106, L506.1001 #### [facility] [address] [place], [address] MCV Normal 80-94 [facility] Comment on above: Result Comment: Canc elled via OM: Order cancelled - Patient discharged Performed By: #### L 500.4050, L500.4100, L503.0106, L506.1001 #### [facility] [address] [place], [address] NEUT% Normal 47-70 [facility] Comment on above: Result Comment: Canc elled via OM: Order cancelled - Patient discharged Performed By: #### L 500.4050, L500.4100, L503.0106, L506.1001 #### [facility] [address] [place], [address] PLT Normal 150-450 [facility] Comment on above: Result Comment: Canc elled via OM: Order cancelled - Patient discharged Performed By: #### L 500.4050, L500.4100, L503.0106, L506.1001 #### [facility] [address] [place], [address] RBC Normal 4.6-6.2 [facility] Comment on above: Result Comment: Canc elled via OM: Order cancelled - Patient discharged Performed By: #### L 500.4050, L500.4100, L503.0106, L506.1001 #### [facility] [address] [place], [address] RDW CV Normal 11.6-14.6 [facility] Comment on above: Result Comment: Canc elled via OM: Order cancelled - Patient discharged Performed By: #### L 500.4050, L500.4100, L503.0106, L506.1001 #### [facility] [address] [place], [address] RDW SD Normal 35.1-43.9 [facility] Comment on above: Result Comment: Canc elled via OM: Order cancelled - Patient discharged Performed By: #### L 500.4050, L500.4100, L503.0106, L506.1001 #### [facility] [address] [place], [address] WBC Normal 4.4-11.0 [facility] Comment on above: Result Comment: Canc elled via OM: Order cancelled - Patient discharged Performed By: #### L 500.4050, L500.4100, L503.0106, L506.1001 #### [facility] [address] [place], [address] Basic Metabolic Profile (BMP )on 07-22-2025 BUN Normal 4-19 [facility] Comment on above: Result Comment: Canc elled via OM: Order cancelled - Patient discharged Performed By: #### L 500.4050, L500.4100, L503.0106, L506.1001 #### [facility] [address] [place], [address] BUN/CRE Normal 10-20 [facility] Comment on above: Result Comment: Canc elled via OM: Order cancelled - Patient discharged Performed By: #### L 500.4050, L500.4100, L503.0106, L506.1001 #### [facility] [address] [place], [address] Calcium Normal 7.6-11.0 [facility] Comment on above: Result Comment: Canc elled via OM: Order cancelled - Patient discharged Performed By: #### L 500.4050, L500.4100, L503.0106, L506.1001 #### [facility] [address] [place], [address] CL Normal 98-108 [facility] Comment on above: Result Comment: Canc elled via OM: Order cancelled - Patient discharged Performed By: #### L 500.4050, L500.4100, L503.0106, L506.1001 #### [facility] [address] [place], [address] CO2 Normal 21.0-32.0 [facility] Comment on above: Result Comment: Canc elled via OM: Order cancelled - Patient discharged Performed By: #### L 500.4050, L500.4100, L503.0106, L506.1001 #### [facility] [address] [place], [address] CREAT,SERUM Normal 0.70-1.20 [facility] Comment on above: Result Comment: Canc elled via OM: Order cancelled - Patient discharged Performed By: #### L 500.4050, L500.4100, L503.0106, L506.1001 #### [facility] [address] [place], [address] eGFR Normal >60 [facility] Comment on above: Result Comment: Canc elled via OM: Order cancelled - Patient discharged Performed By: #### L 500.4050, L500.4100, L503.0106, L506.1001 #### [facility] [address] [place], [address] GAP Normal 5-15 [facility] Comment on above: Result Comment: Canc elled via OM: Order cancelled - Patient discharged Performed By: #### L 500.4050, L500.4100, L503.0106, L506.1001 #### [facility] [address] [place], [address] GLU Normal 70-99 [facility] Comment on above: Result Comment: Canc elled via OM: Order cancelled - Patient discharged Performed By: #### L 500.4050, L500.4100, L503.0106, L506.1001 #### [facility] [address] [place], [address] Potassium Normal 3.3-5.1 [facility] Comment on above: Result Comment: Canc elled via OM: Order cancelled - Patient discharged Performed By: #### L 500.4050, L500.4100, L503.0106, L506.1001 #### [facility] [address] [place], [address] Basic Metabolic Profile (BMP) Normal 133-145 [facility] Comment on above: Result Comment: Canc elled via OM: Order cancelled - Patient discharged Performed By: #### L 500.4050, L500.4100, L503.0106, L506.1001 #### [facility] [address] [place], [address] CBC W/Diff, Automatedon 10-0 Absolute Neut Normal 2.0-7.7 [facility] Comment on above: Result Comment: Canc elled via OM: Order cancelled - Patient discharged Performed By: #### L 500.4050, L500.4100, L503.0106, L506.1001 #### [facility] [address] [place], [address] HCT Normal 40-54 [facility] Comment on above: Result Comment: Canc elled via OM: Order cancelled - Patient discharged Performed By: #### L 500.4050, L500.4100, L503.0106, L506.1001 #### [facility] [address] [place], [address] HGB Normal 13.0-16.5 [facility] Comment on above: Result Comment: Canc elled via OM: Order cancelled - Patient discharged Performed By: #### L 500.4050, L500.4100, L503.0106, L506.1001 #### [facility] [address] [place], [address] MCH Normal 27.0-32.0 [facility] Comment on above: Result Comment: Canc elled via OM: Order cancelled - Patient discharged Performed By: #### L 500.4050, L500.4100, L503.0106, L506.1001 #### [facility] [address] [place], [address] MCHC Normal 32-36 [facility] Comment on above: Result Comment: Canc elled via OM: Order cancelled - Patient discharged Performed By: #### L 500.4050, L500.4100, L503.0106, L506.1001 #### [facility] [address] [place], [address] MCV Normal 80-94 [facility] Comment on above: Result Comment: Canc elled via OM: Order cancelled - Patient discharged Performed By: #### L 500.4050, L500.4100, L503.0106, L506.1001 #### [facility] [address] [place], [address] NEUT% Normal 47-70 [facility] Comment on above: Result Comment: Canc elled via OM: Order cancelled - Patient discharged Performed By: #### L 500.4050, L500.4100, L503.0106, L506.1001 #### [facility] [address] [place], [address] PLT Normal 150-450 [facility] Comment on above: Result Comment: Canc elled via OM: Order cancelled - Patient discharged Performed By: #### L 500.4050, L500.4100, L503.0106, L506.1001 #### [facility] [address] [place], [address] RBC Normal 4.6-6.2 [facility] Comment on above: Result Comment: Canc elled via OM: Order cancelled - Patient discharged Performed By: #### L 500.4050, L500.4100, L503.0106, L506.1001 #### [facility] [address] [place], [address] RDW CV Normal 11.6-14.6 [facility] Comment on above: Result Comment: Canc elled via OM: Order cancelled - Patient discharged Performed By: #### L 500.4050, L500.4100, L503.0106, L506.1001 #### [facility] [address] [place], [address] RDW SD Normal 35.1-43.9 [facility] Comment on above: Result Comment: Canc elled via OM: Order cancelled - Patient discharged Performed By: #### L 500.4050, L500.4100, L503.0106, L506.1001 #### [facility] [address] [place], [address] WBC Normal 4.4-11.0 [facility] Comment on above: Result Comment: Canc elled via OM: Order cancelled - Patient discharged Performed By: #### L 500.4050, L500.4100, L503.0106, L506.1001 #### [facility] [address] [place], [address] CBC (INCLUDES DIFF/PLT)on Basophils (Bld) [#/Vol] 0.06 10*3/uL Normal 0-200 [facility] Comment on above: Performed By: #### 6 176, [id number] #### [facility] [address] [place] [address], [address] [place] [address] Software Engineering Analyst: Osman Rojo MD Basophils/100 WBC (Bld) 0.7 % Normal [facility] Comment on above: Performed By: #### 6 399, 65830 #### [facility] [place] [address] Software Engineering Analyst: Osman Rojo MD Eosinophils (Bld) [#/Vol] 0.172 10*3/uL Normal 15-500 [facility] Comment on above: Performed By: #### 6 399, 66075 #### [facility] [place] [address] Software Engineering Analyst: Osman Rojo MD Eosinophils/100 WBC (Bld) 2.0 % Normal [facility] Comment on above: Performed By: #### 6 399, 46348 #### [facility] [place] [address] Software Engineering Analyst: Osman Rojo MD Erythrocyte distribution width (RBC) [Ratio] 12.9 % Normal 11.0-15.0 [facility] Comment on above: Performed By: #### 6 399, 68737 #### [facility] [place] [address] Software Engineering Analyst: Osman Rojo MD Hematocrit (Bld) [Volume fraction] 38.3 % Low 38.5-50.0 [facility] Comment on above: Performed By: #### 6 399, 08896 #### [facility] [place] [address] Software Engineering Analyst: Osman Rojo MD Hemoglobin (Bld) [Mass/Vol] 12.1 g/dL Low 13.2-17.1 [facility] Comment on above: Performed By: #### 6 399, 06715 #### [facility] [place] [address] Software Engineering Analyst: Osman Rojo MD Lymphocytes (Bld) [#/Vol] 0.774 10*3/uL Low 850-3900 [facility] Comment on above: Performed By: #### 6 399, 41029 #### [facility] [place] [address] Software Engineering Analyst: Osman Rojo MD Lymphocytes/100 WBC (Bld) 9.0 % Normal [facility] Comment on above: Performed By: #### 6 399, 42179 #### [facility] [place] [address] Software Engineering Analyst: Osman Rojo MD MCH (RBC) [Entitic mass] 32.0 pg Normal 27.0-33.0 [facility] Comment on above: Performed By: #### 6 399, 77197 #### [facility] [place] [address] Software Engineering Analyst: Osman Rojo MD MCHC (RBC) [Mass/Vol] 31.6 g/dL Low 32.0-36.[address] [facility] Comment on above: Result Comment: For adults, a slight decrease in the calculated MCHC value (in the range of 30 to 32 g/dL) is most likely not clinically significant; however, it should be interpreted with caution in correlation with other red cell parameters and the patient's clinical condition. Performed By: #### 6 399, 44520 #### [facility] [place] [address] Software Engineering Analyst: Osman Rojo MD MCV (RBC) [Entitic vol] 101.3 fL High 80.0-100.0 [facility] Comment on above: Performed By: #### 6 399, 52524 #### [facility] [place] [address] Software Engineering Analyst: Osman Rojo MD Monocytes (Bld) [#/Vol] 0.946 10*3/uL Normal 200-950 [facility] Comment on above: Performed By: #### 6 399, 46961 #### [facility] [place] [address] Software Engineering Analyst: Osman Rojo MD Monocytes/100 WBC (Bld) 11.0 % Normal [facility] Comment on above: Performed By: #### 6 399, 81100 #### [facility] of [address], [address] [place] [address] Software Engineering Analyst: Osman Rojo MD Neutrophils (Bld) [#/Vol] 6.648 10*3/uL Normal 3217-2531 [facility] Comment on above: Performed By: #### 6 399, 92667 #### [facility] of [address], [address] [place] [address] Software Engineering Analyst: Osman Rojo MD Neutrophils/100 WBC (Bld) 77.3 % Normal [facility] Comment on above: Performed By: #### 6 399, 46012 #### [facility] of [address], [address] [place] [address] Software Engineering Analyst: Osman Rojo MD Platelet mean volume (Bld) [Entitic vol] 9.3 fL Normal 7.5-12.5 [facility] Comment on above: Performed By: #### 6 399, 27194 #### [facility] of [address], [address] [place] [address] Software Engineering Analyst: Osman Rojo MD Platelets (Bld) [#/Vol] 300 10*3/uL Normal 140-400 [facility] Comment on above: Performed By: #### 6 399, 22918 #### [facility] of [address], [address] [place] [address] Software Engineering Analyst: Osman Rojo MD RBC (Bld) [#/Vol] 3.78 10*6/uL Low 4.20-5.80 [facility] Comment on above: Performed By: #### 6 399, 87777 #### [facility] of [address], [address] [place] [address] Software Engineering Analyst: Osman Rojo MD WBC (Bld) [#/Vol] 8.6 10*3/uL Normal 3.8-10.8 [facility] Comment on above: Performed By: #### 6 399, 35967 #### [facility] of [address], [address] [place] [address] Software Engineering Analyst: Osman Rojo MD COMPREHENSIVE METABOLIC PANE L W/ANION GAPon 07-18-2025 Albumin [Mass/Vol] 3.9 g/dL Normal 3.6-5.1 [facility] Comment on above: Order Comment: FASTI NG:NO FASTING: NO Performed By: #### 6 399, 69746 #### [facility] [place] [address] Software Engineering Analyst: Osman Rojo MD ALP [Catalytic activity/Vol] 114 U/L Normal 35-144 [facility] Comment on above: Order Comment: FASTI NG:NO FASTING: NO Performed By: #### 6 399, 96293 #### [facility] [place] [address] Software Engineering Analyst: Osman Rojo MD ALT [Catalytic activity/Vol] 23 U/L Normal 9-46 [facility] Comment on above: Order Comment: FASTI NG:NO FASTING: NO Performed By: #### 6 399, 86057 #### [facility] [place] [address] Software Engineering Analyst: Osman Rojo MD AST [Catalytic activity/Vol] 16 U/L Normal 10-35 [facility] Comment on above: Order Comment: FASTI NG:NO FASTING: NO Performed By: #### 6 399, 44617 #### [facility] [place] [address] Software Engineering Analyst: Osman Rojo MD Bilirubin [Mass/Vol] 0.5 mg/dL Normal 0.2-1.2 [facility] Comment on above: Order Comment: FASTI NG:NO FASTING: NO Performed By: #### 6 399, 73097 #### [facility] [place] [address] Software Engineering Analyst: Osman Rojo MD Calcium [Mass/Vol] 9.1 mg/dL Normal 8.6-10.3 [facility] Comment on above: Order Comment: FASTI NG:NO FASTING: NO Performed By: #### 6 399, 65276 #### [facility] [address], [address] [place] [address] Software Engineering Analyst: Osman Rojo MD Chloride [Moles/Vol] 104 mmol/L Normal 98-110 [facility] Comment on above: Order Comment: FASTI NG:NO FASTING: NO Performed By: #### 6 399, 59562 #### [facility] [address], [address] [place] [address] Software Engineering Analyst: Osman Rojo MD CO2 [Moles/Vol] 26 mmol/L Normal 20-32 [facility] Comment on above: Order Comment: FASTI NG:NO FASTING: NO Performed By: #### 6 399, 13678 #### [facility] [place] [address] Software Engineering Analyst: Osman Rojo MD Creatinine [Mass/Vol] 0.86 mg/dL Normal 0.70-1.22 [facility] Comment on above: Order Comment: FASTI NG:NO FASTING: NO Performed By: #### 6 399, 19033 #### [facility] [place] [address] Software Engineering Analyst: Osman Rojo MD ELECTROLYTE BALANCE 7 mmol/L (calc) Normal 7-17 [facility] Comment on above: Order Comment: FASTI NG:NO FASTING: NO Performed By: #### 6 399, 52940 #### [facility] [place] [address] Software Engineering Analyst: Osman Rojo MD GFR/1.73 sq M.predicted among non-blacks MDRD (S/P/Bld) [Vol rate/Area] 83 mL/min/{1.73_m2} Normal > OR = 60 [facility] Comment on above: Order Comment: FASTI NG:NO FASTING: NO Performed By: #### 6 399, 68498 #### [facility] [place] [address] Software Engineering Analyst: Osman Rojo MD Glucose [Mass/Vol] 85 mg/dL Normal 65-139 [facility] Comment on above: Order Comment: FASTI NG:NO FASTING: NO Result Comment: Non-fasting reference interval Performed By: #### 6 399, 72303 #### [facility] [address], [address] [place] [address] Software Engineering Analyst: Osman Rojo MD Potassium [Moles/Vol] 4.7 mmol/L Normal 3.5-5.[address] [facility] Comment on above: Order Comment: FASTI NG:NO FASTING: NO Performed By: #### 6 399, 84510 #### [facility] [place] [address] Software Engineering Analyst: Osman Rojo MD Protein [Mass/Vol] 6.1 g/dL Normal 6.1-8.1 [facility] Comment on above: Order Comment: FASTI NG:NO FASTING: NO Performed By: #### 6 399, 01453 #### [facility] [address], [address] [place] [address] Software Engineering Analyst: Osman Rojo MD Sodium [Moles/Vol] 137 mmol/L Normal 135-146 [facility] Comment on above: Order Comment: FASTI NG:NO FASTING: NO Performed By: #### 6 399, 54317 #### [facility] [place] [address] Software Engineering Analyst: Osman Rojo MD Urea nitrogen [Mass/Vol] 20 mg/dL Normal 7-25 [facility] Comment on above: Order Comment: FASTI NG:NO FASTING: NO Performed By: #### 6 399, 08794 #### [facility] [place] [address] Software Engineering Analyst: Osman Rojo MD Absolute lymphocyte countOrd ered By: Jesus Alberto Wiggins on 07-15-2025 Lymphocytes Auto (Unsp spec) [#/Vol] 1.37 10*3/uL 0.83-4.51 [facility] Absolute neutrophil countOrd ered By: Jesus Alberto Wiggins on 07-15-2025 Neutrophils (Bld) [#/Vol] 5.0 10*3/uL 2.0-7.7 [facility] Anion gap in Serum or Plasma Ordered By: Jesus Alberto Feliciano on 07-15-2025 Anion gap [Moles/Vol] 11 mmol/L 5-15 [facility] Automated lymphocyte count a s percentage of total leukocytesOrdered By: Jesus Alberto Wiggins on 07-15-2025 Lymphocytes/100 WBC Auto (Unsp spec) 17.8 % Low 19-41 [facility] BUN/creatinine ratioOrdered By: Jesus Alberto Wiggins on 07-15-2025 Urea nitrogen/Creatinine [Mass ratio] 31.8 mg/mg High 10- [facility] Basic Metabolic Profile (BMP )on 07-15-2025 BUN/CRE 31.8 RATIO High 08-10 [facility] Comment on above: Performed By: #### L 500.4050, L500.4100, L503.0106, L506.1001 #### [facility] [address] [place], [address] Calcium [Mass/Vol] 8.8 mg/dL Normal 7.6-11.0 [facility] Comment on above: Performed By: #### L 500.4050, L500.4100, L503.0106, L506.1001 #### [facility] [address] [place], [address] Chloride [Moles/Vol] 103 mmol/L Normal 98-108 [facility] Comment on above: Performed By: #### L 500.4050, L500.4100, L503.0106, L506.1001 #### [facility] [address] [place], [address] CO2 [Moles/Vol] 21.1 mmol/L Normal 21.0-32.0 [facility] Comment on above: Performed By: #### L 500.4050, L500.4100, L503.0106, L506.1001 #### [facility] [address] [place], [address] Creatinine [Mass/Vol] 0.72 mg/dL Normal 0.70-1.20 [facility] Comment on above: Performed By: #### L 500.4050, L500.4100, L503.0106, L506.1001 #### [facility] [address] [place], [address] ECRCL 56.49 ml/min Normal 50-250 [facility] Comment on above: Performed By: #### L 500.4050, L500.4100, L503.0106, L506.1001 #### [facility] [address] [place], [address] GAP 11 Normal 5-15 [facility] Comment on above: Performed By: #### L 500.4050, L500.4100, L503.0106, L506.1001 #### [facility] [address] [place], [address] GFR/1.73 sq M.predicted among non-blacks MDRD (S/P/Bld) [Vol rate/Area] 87 mL/min/{1.73_m2} Normal >60 [facility] Comment on above: Result Comment: mL/m in/1.73m2 CKD-EPI Creatinine Equation (2020) Performed By: #### L 500.4050, L500.4100, L503.0106, L506.1001 #### [facility] [address] [place], [address] Glucose [Mass/Vol] 89 mg/dL Normal 70-99 [facility] Comment on above: Performed By: #### L 500.4050, L500.4100, L503.0106, L506.1001 #### [facility] [address] [place], [address] Potassium [Moles/Vol] 4.5 mmol/L Normal 3.3-5.1 [facility] Comment on above: Performed By: #### L 500.4050, L500.4100, L503.0106, L506.1001 #### [facility] [address] [place], [address] Sodium [Moles/Vol] 134 mmol/L Normal 133-145 [facility] Comment on above: Performed By: #### L 500.4050, L500.4100, L503.0106, L506.1001 #### [facility] [address] [place], [address] Urea nitrogen [Mass/Vol] 23 mg/dL High 4-19 [facility] Comment on above: Performed By: #### L 500.4050, L500.4100, L503.0106, L506.1001 #### [facility] [address] [place], [address] Basophil percentageOrdered B y: Jesus Alberto Wiggins on 07-15-2024 Basophils/100 WBC (Bld) 0.8 % 0-1 [facility] CBC W/Diff, Automatedon 06-23 Absolute Lymph 1.37 X10 3/uL Normal 0.83-4.51 [facility] Comment on above: Performed By: #### L 500.4050, L500.4100, L503.0106, L506.1001 #### [facility] [address] [place], [address] Absolute Neut 5.0 X10 3/uL Normal 2.0-7.7 [facility] Comment on above: Performed By: #### L 500.4050, L500.4100, L503.0106, L506.1001 #### [facility] [address] [place], [address] Basophils/100 WBC (Bld) 0.8 % Normal 0-1 [facility] Comment on above: Performed By: #### L 500.4050, L500.4100, L503.0106, L506.1001 #### [facility] [address] [place], [address] Eosinophils/100 WBC (Bld) 5.3 % High 0-5 [facility] Comment on above: Performed By: #### L 500.4050, L500.4100, L503.0106, L506.1001 #### [facility] [address] [place], [address] Erythrocyte distribution width (RBC) [Ratio] 13.2 % Normal 11.6-14.6 [facility] Comment on above: Performed By: #### L 500.4050, L500.4100, L503.0106, L506.1001 #### [facility] [address] [place], [address] Hematocrit (Bld) [Volume fraction] 32.0 % Low 40-54 [facility] Comment on above: Performed By: #### L 500.4050, L500.4100, L503.0106, L506.1001 #### [facility] [address] [place], [address] Hemoglobin (Bld) [Mass/Vol] 10.7 g/dL Low 13.0-16.5 [facility] Comment on above: Performed By: #### L 500.4050, L500.4100, L503.0106, L506.1001 #### [facility] [address] [place], [address] IG% 0.400 Normal 0.0-0.9 [facility] Comment on above: Result Comment: IG% - Immature Granulocytes (promyelocytes, myelocytes and metamyelocytes) > 1% indicates that a LEFT SHIFT is Present. Performed By: #### L 500.4050, L500.4100, L503.0106, L506.1001 #### [facility] [address] [place], [address] Lymphocytes/100 WBC (Bld) 17.8 % Low 19-41 [facility] Comment on above: Performed By: #### L 500.4050, L500.4100, L503.0106, L506.1001 #### [facility] [address] [place], [address] MCH (RBC) [Entitic mass] 31.8 pg Normal 27.0-32.0 [facility] Comment on above: Performed By: #### L 500.4050, L500.4100, L503.0106, L506.1001 #### [facility] [address] [place], [address] MCHC (RBC) [Mass/Vol] 33.4 g/dL Normal 32-36 [facility] Comment on above: Performed By: #### L 500.4050, L500.4100, L503.0106, L506.1001 #### [facility] [address] [place], [address] MCV (RBC) [Entitic vol] 95.0 fL High 80-94 [facility] Comment on above: Performed By: #### L 500.4050, L500.4100, L503.0106, L506.1001 #### [facility] [address] [place], [address] Monocytes/100 WBC (Bld) 10.8 % High 0-10 [facility] Comment on above: Performed By: #### L 500.4050, L500.4100, L503.0106, L506.1001 #### [facility] [address] [place], [address] Neutrophils/100 WBC (Bld) 64.9 % Normal 47-70 [facility] Comment on above: Performed By: #### L 500.4050, L500.4100, L503.0106, L506.1001 #### [facility] [address] [place], [address] Nucleated RBC (Bld) [#/Vol] 0 10*3/uL Normal 0-5 [facility] Comment on above: Performed By: #### L 500.4050, L500.4100, L503.0106, L506.1001 #### [facility] [address] [place], [address] Platelet mean volume (Bld) [Entitic vol] 9.1 fL Normal 6.2-12.0 [facility] Comment on above: Performed By: #### L 500.4050, L500.4100, L503.0106, L506.1001 #### [facility] [address] [place], [address] Platelets (Bld) [#/Vol] 255 10*3/uL Normal 150-450 [facility] Comment on above: Performed By: #### L 500.4050, L500.4100, L503.0106, L506.1001 #### [facility] [address] [place], [address] RBC (Bld) [#/Vol] 3.37 10*6/uL Low 4.6-6.2 [facility] Comment on above: Performed By: #### L 500.4050, L500.4100, L503.0106, L506.1001 #### [facility] [address] [place], [address] RDW SD 45.7 fl High 35.1-43.9 [facility] Comment on above: Performed By: #### L 500.4050, L500.4100, L503.0106, L506.1001 #### [facility] [address] [place], [address] WBC (Bld) [#/Vol] 7.7 10*3/uL Normal 4.4-11.0 [facility] Comment on above: Performed By: #### L 500.4050, L500.4100, L503.0106, L506.1001 #### [facility] [address] [place], [address] Carbon dioxide, total [Moles /volume] in Central venous bloodOrdered By: Jesus Alberto Wiggins on 07-15-2025 CO2 [Moles/Vol] 21.1 mmol/L 21.0-32.0 [facility] Chloride assayOrdered By: Kelechi Wiggins on 07-15-2025 Chloride [Moles/Vol] 103 mmol/L 98-108 [facility] Eosinophil percentageOrdered By: Jesus Alberto Wiggins on 07-15-2025 Eosinophils/100 WBC (Bld) 5.3 % High 0-5 [facility] Erythrocyte distribution wid th ratioOrdered By: Jesus Alberto Wiggins on 07-15-2025 Erythrocyte distribution width (RBC) [Ratio] 13.2 % 11.6-14.6 [facility] Erythrocyte distribution wid th standard deviationOrdered By: Jesus Alberto Wiggins on 07-15-2025 Erythrocyte distribution width (RBC) [Ratio] 45.7 fl High 35.1-43.9 [facility] Glomerular filtration rate ( GFR) estimation/1.73 sq m using serum, plasma, or whole bOrdered By: Jesus Alberto Wiggins on 07-15-2025 GFR/1.73 sq M.predicted among non-blacks MDRD (S/P/Bld) [Vol rate/Area] 87 mL/min/{1.73_m2} >60 [facility] Comment on above: mL/min/1.73m2 CKD-EP I Creatinine Equation (2020) Hematocrit Auto (Bld) [Volum e fraction]Ordered By: Jesus Alberto Wiggins on 07-15-2025 Hematocrit (Bld) [Volume fraction] 32.0 % Low 40-54 [facility] Hemoglobin measurementOrdere d By: Jesus Alberto Wiggins on 07-15-2025 Hemoglobin (Bld) [Mass/Vol] 10.7 g/dL Low 13.0-16.5 [facility] Immature granulocytes/100 WB C Auto (Bld)Ordered By: Jesus Alberto Wiggins on 07-15-2025 Immature granulocytes/100 WBC (Bld) 0.400 % 0.0-0.9 [facility] Comment on above: IG% - Immature Granu locytes (promyelocytes, myelocytes and metamyelocytes) > 1% indicates that a LEFT SHIFT is Present. MCV (mean corpuscular volume ) determinationOrdered By: Jesus Alberto Wiggins on 07-15-2025 MCV (RBC) [Entitic vol] 95.0 fL High 80-94 [facility] Mean corpuscular hemoglobin (MCH) determinationOrdered By: Jesus Alberto Wiggins on 07-15-2025 MCH (RBC) [Entitic mass] 31.8 pg 27.0-32.0 [facility] Mean corpuscular hemoglobin concentration (MCHC) determinationOrdered By: Jesus Alberto Wiggins on 07-15-2025 MCHC (RBC) [Mass/Vol] 33.4 g/dL 32-36 [facility] Mean platelet volume determi nationOrdered By: Jesus Alberto Wiggins on 07-15-2025 Platelet mean volume (Bld) [Entitic vol] 9.1 fL 6.2-12.0 [facility] Monocyte percentageOrdered B y: Jesus Alberto Wiggins on 07-15-2025 Monocytes/100 WBC (Bld) 10.8 % High 0-10 [facility] Neutrophil percentageOrdered By: Jesus Alberto Wiggins on 07-15-2025 Neutrophils/100 WBC (Bld) 64.9 % 47-70 [facility] Nucleated red blood cell per centageOrdered By: Jesus Alberto Wiggins on 07-15-2025 Nucleated RBC/100 WBC (Bld) [Ratio] 0 % 0-5 [facility] Platelet countOrdered By: Kelechi Wiggins on 07-15-2025 Platelets (Bld) [#/Vol] 255 10*3/uL 150-450 [facility] Potassium measurement (mass/ volume)Ordered By: Jesus Alberto Wiggins on 07-15-2025 Potassium (Unsp spec) [Mass/Vol] 4.5 mmol/L 3.3-5.1 [facility] RBC Auto (Bld) [#/Vol]Ordere d By: Jesus Alberto Wiggins on 07-15-2025 RBC (Bld) [#/Vol] 3.37 10*6/uL Low 4.6-6.2 [facility] Serum creatinine measurement (mass/volume)Ordered By: Jesus Alberto Wiggins on 07-15-2025 Creatinine [Mass/Vol] 0.72 mg/dL 0.70-1.20 [facility] Serum glucose measurement (m ass/volume)Ordered By: Jesus Alberto Wiggins on 07-15-2025 Glucose [Mass/Vol] 89 mg/dL 70-99 [facility] Serum or plasma calcium praveen urement (mass/volume)Ordered By: Jesus Alberto Wiggins on 07-15-2025 Calcium [Mass/Vol] 8.8 mg/dL 7.6-11.0 [facility] Serum or plasma urea nitroge n measurement (mass/volume)Ordered By: Jesus Alberto Wiggins on 07-15-2025 Urea nitrogen [Mass/Vol] 23 mg/dL High 4-19 [facility] Sodium levelOrdered By: Jesus Alberto Wiggins on 07-15-2025 Sodium [Moles/Vol] 134 mmol/L 133-145 [facility] White blood cell (WBC) count Ordered By: Jesus Alberto Wiggins on 07-15-2025 WBC (Bld) [#/Vol] 7.7 10*3/uL 4.4-11.0 [facility] Bedside Glucoseon 07-14-2025 FINGERSTICK GLU 89 mg/dL Normal 74-106 [facility] Comment on above: Result Comment: MINDY BLUE OF PATIENT CARE PER NURSING PROTOCOL Performed By: #### L 501.080 #### [facility] [address] [place], [place], [address] Brain/Head without Contrasto n 07-14-2025 Brain/Head without Contrast [facility] Imaging Services [address] [place] [address] Brain/Head without Contrast MR#: [id number] Acct: [id number] Name: FAWN CAMERON Lu Rep #: [id number] : 1935 M 89 From: Breezy Baptiste PCP: Dr. Devan Barrera MD Status: REG CLI Study: Brain/Head without Contrast Date of Exam: 06/23 01/13 Exam# [id number] Ordering Dr: Jesus Alberto Wiggins MD PROCEDURE: BRAIN/HEAD WITHOUT CONTRAST 07/14/2025 REASON FOR EXAM: FALL WITH HEAD STRIKE TECHNIQUE: Procedure Code: CTBR Modality: CT Procedure: BRAIN/HEAD WITHOUT CONTRAST Coronal and Sagittal reconstruction series were provided. One or more dose reduction techniques were used (e.g., Automated exposure control, adjustment of the mA and/or kV according to patient size, use of iterative reconstruction technique. RADIATION DOSE SUMMARY: DLP: 830 mGycm COMPARISON: 05/21/2025 FINDINGS: There is no acute infarct, intracranial hemorrhage, or mass effect. There is no hydrocephalus or significant midline shift. There is moderate to severe chronic microvascular ischemic changes and moderate parenchymal volume loss. No acute, depressed calvarial fractures. No large scalp hematomas. The paranasal sinuses are clear. Bilateral lens surgeries. CT/Brain/Head without Contrast IMPRESSION: No acute intracranial process. Reading Location: [facility] CC: Dr. Devan Barrera MD; Dr. Jesus Alberto Wiggins MD Game Designer: Signed Normal [facility] Glucose measurement at [facility] deOrdered By: Jesus Alberto Wiggins on 07-14-2025 Glucose [Mass/Vol] 89 mg/dL 74-106 [facility] Comment on above: MANAGEMENT OF PATIEN T CARE PER NURSING PROTOCOL Basic Metabolic Profile (BMP )on 07-08-2025 BUN/CRE 34.3 RATIO High 10-20 [facility] Comment on above: Performed By: #### L 501.080 #### [facility] [address] [place], [address] Calcium [Mass/Vol] 8.9 mg/dL Normal 7.6-11.0 [facility] Comment on above: Performed By: #### L 501.080 #### [facility] [address] [place], [address] Chloride [Moles/Vol] 102 mmol/L Normal 98-108 [facility] Comment on above: Performed By: #### L 501.080 #### [facility] [address] [place], [address] CO2 [Moles/Vol] 22.3 mmol/L Normal 21.0-32.0 [facility] Comment on above: Performed By: #### L 501.080 #### [facility] [address] [place], [address] Creatinine [Mass/Vol] 0.85 mg/dL Normal 0.70-1.20 [facility] Comment on above: Performed By: #### L 501.080 #### [facility] [address] [place], [address] ECRCL 53.17 ml/min Normal 50-250 [facility] Comment on above: Performed By: #### L 501.080 #### [facility] [address] [place], [address] GAP 12 Normal 5-15 [facility] Comment on above: Performed By: #### L 501.080 #### [facility] [address] [place], [address] GFR/1.73 sq M.predicted among non-blacks MDRD (S/P/Bld) [Vol rate/Area] 83 mL/min/{1.73_m2} Normal >60 [facility] Comment on above: Result Comment: mL/m in/1.73m2 CKD-EPI Creatinine Equation (2020) Performed By: #### L 501.080 #### [facility] [address] [place], [address] Glucose [Mass/Vol] 96 mg/dL Normal 70-99 [facility] Comment on above: Performed By: #### L 501.080 #### [facility] [address] [place], [address] Potassium [Moles/Vol] 4.8 mmol/L Normal 3.3-5.1 [facility] Comment on above: Result Comment: Hemo lysis present, Results??could be affected. ?? Performed By: #### L 501.080 #### [facility] [address] [place], [address] Sodium [Moles/Vol] 135 mmol/L Normal 133-145 [facility] Comment on above: Performed By: #### L 501.080 #### [facility] [address] [place], [address] Urea nitrogen [Mass/Vol] 29 mg/dL High 4-19 [facility] Comment on above: Performed By: #### L 501.080 #### [facility] [address] [place], [address] CBC W/Diff, Automatedon 06-22 Absolute Lymph 0.97 X10 3/uL Normal 0.83-4.51 [facility] Comment on above: Performed By: #### L 501.080 #### [facility] [address] [place], [address] Absolute Neut 5.5 X10 3/uL Normal 2.0-7.7 [facility] Comment on above: Performed By: #### L 501.080 #### [facility] [address] [place], [address] Basophils/100 WBC (Bld) 0.6 % Normal 0-1 [facility] Comment on above: Performed By: #### L 501.080 #### [facility] [address] [place], [address] Eosinophils/100 WBC (Bld) 4.6 % Normal 0-5 [facility] Comment on above: Performed By: #### L 501.080 #### [facility] [address] [place], [address] Erythrocyte distribution width (RBC) [Ratio] 13.4 % Normal 11.6-14.6 [facility] Comment on above: Performed By: #### L 501.080 #### [facility] [address] [place], [address] Hematocrit (Bld) [Volume fraction] 33.0 % Low 40-54 [facility] Comment on above: Performed By: #### L 501.080 #### [facility] [address] [place], [address] Hemoglobin (Bld) [Mass/Vol] 10.9 g/dL Low 13.0-16.5 [facility] Comment on above: Performed By: #### L 501.080 #### [facility] [address] [place], [address] IG% 0.800 Normal 0.0-0.9 [facility] Comment on above: Result Comment: IG% - Immature Granulocytes (promyelocytes, myelocytes and metamyelocytes) > 1% indicates that a LEFT SHIFT is Present. Performed By: #### L 501.080 #### [facility] [address] [place], [address] Lymphocytes/100 WBC (Bld) 12.4 % Low 19-41 [facility] Comment on above: Performed By: #### L 501.080 #### [facility] [address] [place], [address] MCH (RBC) [Entitic mass] 32.1 pg High 27.0-32.0 [facility] Comment on above: Performed By: #### L 501.080 #### [facility] [address] [place], [address] MCHC (RBC) [Mass/Vol] 33.0 g/dL Normal 32-36 [facility] Comment on above: Performed By: #### L 501.080 #### [facility] [address] [place], [address] MCV (RBC) [Entitic vol] 97.1 fL High 80-94 [facility] Comment on above: Performed By: #### L 501.080 #### [facility] [address] [place], [address] Monocytes/100 WBC (Bld) 10.8 % High 0-10 [facility] Comment on above: Performed By: #### L 501.080 #### [facility] [address] [place], [address] Neutrophils/100 WBC (Bld) 70.8 % High 47-70 [facility] Comment on above: Performed By: #### L 501.080 #### [facility] [address] [place], [address] Nucleated RBC (Bld) [#/Vol] 0 10*3/uL Normal 0-5 [facility] Comment on above: Performed By: #### L 501.080 #### [facility] [address] [place], [address] Platelet mean volume (Bld) [Entitic vol] 8.9 fL Normal 6.2-12.0 [facility] Comment on above: Performed By: #### L 501.080 #### [facility] [address] [place], [address] Platelets (Bld) [#/Vol] 269 10*3/uL Normal 150-450 [facility] Comment on above: Performed By: #### L 501.080 #### [facility] [address] [place], [address] RBC (Bld) [#/Vol] 3.40 10*6/uL Low 4.6-6.2 [facility] Comment on above: Performed By: #### L 501.080 #### [facility] [address] [place], [address] RDW SD 47.8 fl High 35.1-43.9 [facility] Comment on above: Performed By: #### L 501.080 #### [facility] [address] [place], [address] WBC (Bld) [#/Vol] 7.8 10*3/uL Normal 4.4-11.0 [facility] Comment on above: Performed By: #### L 501.080 #### [facility] [address] [place], [place], [address] Modified Barium Swallow Stud [facility] 07-07-2025 Modified Barium Swallow Study [facility] Speech Pathology [address] [facility] [place] [address] Modified Barium Swallow Study MR#: [id number] Acct: [id number] Name: FAWN CAMERON Rep #: [id number] : 1935 89 From: Lincoln Jensen M.A., [facility] SERV[employer] SUPERVISOR Modified Barium Swallow Patient Information Study Date: 07/07/25 Study Time: 14:00 Direct Billable Minutes: 84 Total Minutes procedure reportin Diagnosis: Dysphagia R13.10 Referring Physician: Jesus Alberto Wiggins Chi Reason for Referral: Re-assess swallow function and risk for aspiration to determine if patient is safe for further diet advancement. 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 Injuries:???1. Right orbital floor. 2. Buckle fracture right anterior cranial floor/orbital roof. 3. Small right subdural hematoma. 4. Trace right frontal SAH.???5. Bilateral pubic rami fracture with extension to acetabular wall.???6. Nondisplaced Sacral ala fracture right. Incidental findings:???1. 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 Left common iliac aneurysm..???3. Right common iliac aneurysm. During his hospitalization 05/10/25-05/20/25 he was also diagnosed with severe oropharyngeal dysphagia with recommendation for NPO. A Dobhoff was placed 05/14/25 after MBSS revealed severe oropharyngeal dysphagia w/ silent aspiration of all liquid consistencies. Other noted concerns from MBSS were severe cervical lordosis, delayed initiation of the pharyngeal swallow, incomplete airway closure, reduced pharyngeal constriction, reduced UES opening/duration, and ineffective cued coughs. Admitted to [facility] 05/20/[address], OT, PT prior to discharge home w/ . ???ST evaluation 05/21/2025 recommended NPO. 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 The patient participated in 10 dysphagia therapy sessions w/ oropharyngeal strengthening in junction w/ NMES, as well as thin water trials w/ [employer] SERV[employer] SUPERVISOR and vocal adduction exercises. Repeat MBSS 06/15/2025 revealed moderate-severe oropharyngeal dysphagia and esophageal dysphagia w/ recommendations for NPO, Ok for trials of puree and mildly thick liquids w/ [employer] SERV[employer] SUPERVISOR only. Recommend tsp bites of puree consistencies w/ use of effortful, multiple swallows. Recommend tsp sips of mildly thick liquids w/ use of effortful, multiple swallow and cough/throat clear and re- swallow w/ each sip. Pt was recommended for GI consult, as well. Per treating WARD SERVICE SUPERVISOR, the patient has tolerated sips of mildly thick liquids via tsp and cup w/o need for cough and re-swallow; however, pudding trials have been difficult for the patient. He underwent EGD 06/17/2025, which revealed abnormal esophageal motility, established achalasia. Dilated. Injected with botulinum toxin. WARD SERVICE SUPERVISOR clarified w/ Dr. Ferrara re: site of botox injection and dilation via Backline. He reported pt had dilation of UES and LES, as well as botox injection at the UES. MBSS repeated 06/23/2025, which recommended advancement to mildly thickened liquids. With further dysphagia treatment, he advanced to minced and moist textures / mildly thick liquid w/ use of 1 bite at a time, double hard swallow and liquid wash after each bite. PMH: Dysphagia, HLD, Depression, BPH, TIA, CAD, Carotid artery stenosis, Osteoarthritis, HTN, GERD, Sacral fracture, Bilateral pubic rami fractures, SAH, SDH, Orbital roof fracture, Orbital floor fracture, Debility. Current Diet Ordered: Minced and moist textures / Mildly thick liquids Dentition: Natural Teeth and Missing Teeth Mental Status: Impaired (Per MoCA on initial evaluation. Did not impact exam.) Respiratory Status: Oxygenating on Room Air Penetration-Aspiration Scale Penetration-Aspiration Scale: OBJECTIVE ASSESSMENT OF SWALLOW FUNCTION (QUANTITATIVE ??? PER TRIAL): PENETRATION / ASPIRATION SCALE (DE JESUS): 1 = does not enter airway 2 = enters airway/above vocal folds/ejected 3 = enters airway/above vocal folds/not ejected 4 = enters airway/contacts vocal folds/ejected 5 = enters airway/contacts vocal folds/not ejected 6 = enters airway/below vocal folds/ejected 7 = enters airway/below vocal folds/not ejected despite effort 8 = enters airway/below vocal folds/no effort VIDEOFLOROSCOPIC SCALE SCORE (DE JESUS): Grade I = aspiration of material that has penetrated into the laryngeal vestibule, intact cough reflex Grade II = aspiration < 10 % of the bolus, intact cough reflex Grade III = aspiration of < 10 % of the bolus, reduced cough reflex or aspiration of > 10 % of the bolus, intact cough reflex Grade IV = aspiration of > 10 % of the bolus, reduced cough reflex Penetration-Aspiration Scale Score [place] Thick Liquid via teaspoon: Result: 2= enter airway/above vocal folds/ejected [place] Thick Liquid via small single sip: cup: Result: 2= enter airway/above vocal folds/ejected Thin Liquid via teaspoon: Result: 2= enter airway/above v (more content not included)... Normal [facility] Abdomen Single Viewon 2024 Abdomen Single View [facility] Imaging Services [address] [place] [address] [id number] Abdomen Single View MR#: [id number] Acct: [id number] Name: FAWN CAMERON Rep #: [id number] : 1935 M 89 From: Raul Stout MD PCP: Dr. Devan Barrera MD Status: ADM IN Study: Abdomen Single View Date of Exam: 06/28/25 Exam# [id number] Ordering Dr: Jesus Alberto Wiggins MD PROCEDURE: ABDOMEN SINGLE VIEW 06/28/2025 REASON FOR EXAM: INCREASE DIARRHEA TECHNIQUE: Procedure Code: RADABD Modality: DX Procedure: ABDOMEN SINGLE VIEW COMPARISON: None FINDINGS: Limitations: Evaluation for free intraperitoneal air and bowel air-fluid levels is suboptimal without upright views. Gastrointestinal: A catheter is seen overlying the left upper quadrant, possibly a percutaneous gastrostomy tube. Location of percutaneous gastrostomy tube can not be confirmed by these views. Visualized bowel gas pattern is nonspecific. Gas and stool filled loops of bowel seen overlying the abdomen and pelvis. No significant asymmetric small bowel gaseous distention to suggest a complete obstruction. If intra-abdominal inflammatory or infectious changes are suspected, further evaluation by contrast- enhanced CT is advised. Diaphragm: The right hemidiaphragm is elevated compared to the left of indeterminate significance. Lung bases: No consolidation or effusion at the visualized lung bases. Osseous: Scoliosis and severe degenerative change of the lumbar spine. Severe osteoarthritic change of the right hip. Left hip replacement extending below the level of imaging. Vascular: Extensive vascular calcifications noted. Soft tissue: Soft tissue abnormality is not reliably assessed by this technique. RAD/Abdomen Single View IMPRESSION: Nonspecific findings. - Findings, limitations and recommendations discussed above. Reading Location: [id number] CC: Dr. Devan Barrera MD; Dr. Jesus Alberto Wiggins MD Game Designer: Signed Normal [facility] Modified Barium Swallow Stud yon 06-23-2025 Modified Barium Swallow Study [facility] Speech Pathology [address] [place] [address] Modified Barium Swallow Study MR#: [id number] Acct: [id number] Name: FAWN CAMERON Rep #: [id number] : 1935 89 From: Lincoln Jensen M.A., [facility]-WARD SERVICE SUPERVISOR Modified Barium Swallow Patient Information Study Date: 06/23/25 Study Time: 13:00 Direct Billable Minutes: 101 Total Minutes procedure reportin Diagnosis: Dysphagia R13.10 Referring Physician: Jesus Alberto Wiggins Chi Reason for Referral: Re-assess swallow function and risk for aspiration to determine if patient is safe for diet advancement s/p EGD w/ dilation and botox injection of UES. 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 Injuries:???1. Right orbital floor. 2. Buckle fracture right anterior cranial floor/orbital roof. 3. Small right subdural hematoma. 4. Trace right frontal SAH.???5. Bilateral pubic rami fracture with extension to acetabular wall.???6. Nondisplaced Sacral ala fracture right. Incidental findings:???1. 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 Left common iliac aneurysm..???3. Right common iliac aneurysm. During his hospitalization 05/10/25-05/20/25 he was also diagnosed with severe oropharyngeal dysphagia with recommendation for NPO. A Dobhoff was placed 05/14/25 after MBSS revealed severe oropharyngeal dysphagia w/ silent aspiration of all liquid consistencies. Other noted concerns from MBSS were severe cervical lordosis, delayed initiation of the pharyngeal swallow, incomplete airway closure, reduced pharyngeal constriction, reduced UES opening/duration, and ineffective cued coughs. Admitted to [facility] 05/20/[address], OT, PT prior to discharge home w/ . ???ST evaluation 05/21/2025 recommended NPO. 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 The patient participated in 10 dysphagia therapy sessions w/ oropharyngeal strengthening in junction w/ NMES, as well as thin water trials w/ WARD SERVICE SUPERVISOR and vocal adduction exercises. Repeat MBSS 06/15/2025 revealed moderate-severe oropharyngeal dysphagia and esophageal dysphagia w/ recommendations for NPO, Ok for trials of puree and mildly thick liquids w/ WARD SERVICE SUPERVISOR only. Recommend tsp bites of puree consistencies w/ use of effortful, multiple swallows. Recommend tsp sips of mildly thick liquids w/ use of effortful, multiple swallow and cough/throat clear and re- swallow w/ each sip. Pt was recommended for GI consult, as well. Per treating WARD SERVICE SUPERVISOR, the patient has tolerated sips of mildly thick liquids via tsp and cup w/o need for cough and re-swallow; however, pudding trials have been difficult for the patient. He underwent EGD 06/17/2025, which revealed abnormal esophageal motility, established achalasia. Dilated. Injected with botulinum toxin. WARD SERVICE SUPERVISOR clarified w/ Dr. Ferrara re: site of botox injection and dilation via Backline. He reported pt had dilation of UES and LES, as well as botox injection at the UES. This MBSS was recommended to determine if pt has improved pharyngeal clearance of food/drink for potential diet advancement s/p EGD. PMH: Dysphagia, HLD, Depression, BPH, TIA, CAD, Carotid artery stenosis, Osteoarthritis, HTN, GERD, Sacral fracture, Bilateral pubic rami fractures, SAH, SDH, Orbital roof fracture, Orbital floor fracture, Debility. Current Diet Ordered: NPO Dentition: Natural Teeth and Missing Teeth Mental Status: Impaired (Per MoCA on initial evaluation. Did not impact exam.) Respiratory Status: Oxygenating on Room Air Penetration-Aspiration Scale Penetration-Aspiration Scale: OBJECTIVE ASSESSMENT OF SWALLOW FUNCTION (QUANTITATIVE ??? PER TRIAL): PENETRATION / ASPIRATION SCALE (DE EJSUS): 1 = does not enter airway 2 = enters airway/above vocal folds/ejected 3 = enters airway/above vocal folds/not ejected 4 = enters airway/contacts vocal folds/ejected 5 = enters airway/contacts vocal folds/not ejected 6 = enters airway/below vocal folds/ejected 7 = enters airway/below vocal folds/not ejected despite effort 8 = enters airway/below vocal folds/no effort VIDEOFLOROSCOPIC SCALE SCORE (DE JESUS): Grade I = aspiration of material that has penetrated into the laryngeal vestibule, intact cough reflex Grade II = aspiration < 10 % of the bolus, intact cough reflex Grade III = aspiration of < 10 % of the bolus, reduced cough reflex or aspiration of > 10 % of the bolus, intact cough reflex Grade IV = aspiration of > 10 % of the bolus, reduced cough reflex Penetration-Aspiration Scale Score [place] Thick Liquid via teaspoon: Result: 3= enters airways/above vocal folds/not ejected [place] Thick Liquid via small single sip: cup: Result: 4= enters airway/contacts vocal folds/ejected [place] Thick Liquid via small single sip: cup Effortful swallow: Result: 2= enter airway/above vocal folds/ejected Thin Liquid via teaspoon: Result: 1= does not enter airway T (more content not included)... Normal [facility] Urine Cultureon 06-19-2025 URC Culture exhibits no growth. Normal [facility] Comment on above: Performed By: #### L 500.4050, L500.4100, L503.0106, L506.1001 #### [facility] Laboratory [address] [place], [address] Basic Metabolic Profile (BMP )on 06-18-2025 BUN/CRE 27.3 RATIO High 10-20 [facility] Comment on above: Performed By: #### L 500.4050, L500.4100, L503.0106, L506.1001 #### [facility] Laboratory [address] [place], [address] Calcium [Mass/Vol] 8.3 mg/dL Normal 7.6-11.0 [facility] Comment on above: Performed By: #### L 500.4050, L500.4100, L503.0106, L506.1001 #### [facility] Laboratory [address] [place], [address] Chloride [Moles/Vol] 99 mmol/L Normal 98-108 [facility] Comment on above: Performed By: #### L 500.4050, L500.4100, L503.0106, L506.1001 #### [facility] Laboratory [address] [place], [address] CO2 [Moles/Vol] 22.4 mmol/L Normal 21.0-32.0 [facility] Comment on above: Performed By: #### L 500.4050, L500.4100, L503.0106, L506.1001 #### [facility] Laboratory [address] [place], [address] Creatinine [Mass/Vol] 0.62 mg/dL Low 0.70-1.20 [facility] Comment on above: Performed By: #### L 500.4050, L500.4100, L503.0106, L506.1001 #### [facility] Laboratory [address] [place], [address] ECRCL 56.49 ml/min Normal 50-250 [facility] Comment on above: Performed By: #### L 500.4050, L500.4100, L503.0106, L506.1001 #### [facility] Laboratory [address] [place], [address] GAP 9 Normal 5-15 [facility] Comment on above: Performed By: #### L 500.4050, L500.4100, L503.0106, L506.1001 #### [facility] Laboratory [address] [place], [address] GFR/1.73 sq M.predicted among non-blacks MDRD (S/P/Bld) [Vol rate/Area] 92 mL/min/{1.73_m2} Normal >60 [facility] Comment on above: Result Comment: mL/m in/1.73m2 CKD-EPI Creatinine Equation (2020) Performed By: #### L 500.4050, L500.4100, L503.0106, L506.1001 #### [facility] Laboratory [address] [place], [address] Glucose [Mass/Vol] 93 mg/dL Normal 70-99 [facility] Comment on above: Performed By: #### L 500.4050, L500.4100, L503.0106, L506.1001 #### [facility] Laboratory [address] [place], [address] Potassium [Moles/Vol] 4.6 mmol/L Normal 3.3-5.1 [facility] Comment on above: Performed By: #### L 500.4050, L500.4100, L503.0106, L506.1001 #### [facility] Laboratory [address] [place], [address] Sodium [Moles/Vol] 131 mmol/L Low 133-145 [facility] Comment on above: Performed By: #### L 500.4050, L500.4100, L503.0106, L506.1001 #### [facility] Laboratory [address] [place], [address] Urea nitrogen [Mass/Vol] 17 mg/dL Normal 4-19 [facility] Comment on above: Performed By: #### L 500.4050, L500.4100, L503.0106, L506.1001 #### [facility] Laboratory [address] [place], [address] Bilirubin Test strip Ql (U)O rdered By: Jesus Alberto Feliciano on 06-18-2025 Bilirubin Ql (U) Negative Negative [facility] CBC W/Diff, Automatedon 05-23 Absolute Lymph 0.99 X10 3/uL Normal 0.83-4.51 [facility] Comment on above: Performed By: #### L 500.4050, L500.4100, L503.0106, L506.1001 #### [facility] Laboratory [address] [place], [address] Absolute Neut 4.9 X10 3/uL Normal 2.0-7.7 [facility] Comment on above: Performed By: #### L 500.4050, L500.4100, L503.0106, L506.1001 #### [facility] Laboratory [address] [place], [address] Basophils/100 WBC (Bld) 0.4 % Normal 0-1 [facility] Comment on above: Performed By: #### L 500.4050, L500.4100, L503.0106, L506.1001 #### [facility] Laboratory [address] [place], [address] Eosinophils/100 WBC (Bld) 6.1 % High 0-5 [facility] Comment on above: Performed By: #### L 500.4050, L500.4100, L503.0106, L506.1001 #### [facility] Laboratory [address] [place], [address] Erythrocyte distribution width (RBC) [Ratio] 14.2 % Normal 11.6-14.6 [facility] Comment on above: Performed By: #### L 500.4050, L500.4100, L503.0106, L506.1001 #### [facility] Laboratory [address] [place], [address] Hematocrit (Bld) [Volume fraction] 32.1 % Low 40-54 [facility] Comment on above: Performed By: #### L 500.4050, L500.4100, L503.0106, L506.1001 #### [facility] Laboratory [address] [place], [address] Hemoglobin (Bld) [Mass/Vol] 10.8 g/dL Low 13.0-16.5 [facility] Comment on above: Performed By: #### L 500.4050, L500.4100, L503.0106, L506.1001 #### [facility] Laboratory [address] [place], [address] IG% 0.600 Normal 0.0-0.9 [facility] Comment on above: Result Comment: IG% - Immature Granulocytes (promyelocytes, myelocytes and metamyelocytes) > 1% indicates that a LEFT SHIFT is Present. Performed By: #### L 500.4050, L500.4100, L503.0106, L506.1001 #### [facility] Laboratory [address] [place], [address] Lymphocytes/100 WBC (Bld) 13.7 % Low 19-41 [facility] Comment on above: Performed By: #### L 500.4050, L500.4100, L503.0106, L506.1001 #### [facility] Laboratory [address] [place], [address] MCH (RBC) [Entitic mass] 33.2 pg High 27.0-32.0 [facility] Comment on above: Performed By: #### L 500.4050, L500.4100, L503.0106, L506.1001 #### [facility] Laboratory [address] [place], [address] MCHC (RBC) [Mass/Vol] 33.6 g/dL Normal 32-36 [facility] Comment on above: Performed By: #### L 500.4050, L500.4100, L503.0106, L506.1001 #### [facility] Laboratory [address] [place], [address] MCV (RBC) [Entitic vol] 98.8 fL High 80-94 [facility] Comment on above: Performed By: #### L 500.4050, L500.4100, L503.0106, L506.1001 #### [facility] Laboratory [address] [place], [address] Monocytes/100 WBC (Bld) 11.4 % High 0-10 [facility] Comment on above: Performed By: #### L 500.4050, L500.4100, L503.0106, L506.1001 #### [facility] Laboratory [address] [place], [address] Neutrophils/100 WBC (Bld) 67.8 % Normal 47-70 [facility] Comment on above: Performed By: #### L 500.4050, L500.4100, L503.0106, L506.1001 #### [facility] Laboratory [address] [place], [address] Nucleated RBC (Bld) [#/Vol] 0 10*3/uL Normal 0-5 [facility] Comment on above: Performed By: #### L 500.4050, L500.4100, L503.0106, L506.1001 #### [facility] Laboratory [address] [place], [address] Platelet mean volume (Bld) [Entitic vol] 9.0 fL Normal 6.2-12.0 [facility] Comment on above: Performed By: #### L 500.4050, L500.4100, L503.0106, L506.1001 #### [facility] Laboratory [address] [place], [address] Platelets (Bld) [#/Vol] 291 10*3/uL Normal 150-450 [facility] Comment on above: Performed By: #### L 500.4050, L500.4100, L503.0106, L506.1001 #### [facility] Laboratory [address] [place], [address] RBC (Bld) [#/Vol] 3.25 10*6/uL Low 4.6-6.2 [facility] Comment on above: Performed By: #### L 500.4050, L500.4100, L503.0106, L506.1001 #### [facility] Laboratory [address] [place], [address] RDW SD 51.7 fl High 35.1-43.9 [facility] Comment on above: Performed By: #### L 500.4050, L500.4100, L503.0106, L506.1001 #### [facility] Laboratory [address] [place], [address] WBC (Bld) [#/Vol] 7.2 10*3/uL Normal 4.4-11.0 [facility] Comment on above: Performed By: #### L 500.4050, L500.4100, L503.0106, L506.1001 #### [facility] Laboratory [address] [place], [address] Ketones Test strip Ql (U)Ord ered By: Jesus Alberto Wiggins on 06-18-2025 Ketones Ql (U) Negative Negative [facility] Microscopic analysis of urin e for red blood cells (RBC)Ordered By: Jesus Alberto Wiggins on 06-18-2025 Microscopic analysis of urine for red blood cells (RBC) 0 SEEN /hpf 0-5 [facility] Mucus LM Ql (Urine sed)Order ed By: Jesus Alberto Wiggins on 06-18-2025 Mucus Ql (Urine sed) 0 SEEN /hpf [facility] Nitrite Test strip Ql (U)Ord ered By: Jesus Alberto Wiggins on 06-18-2025 Nitrite Ql (U) Negative Negative [facility] Protein Test strip Ql (U)Ord ered By: Jesus Alberto Wiggins on 06-18-2025 Protein Ql (U) 30 mg/dl High Negative [facility] Squamous epithelial cells de tection in urine sediment by light microscopyOrdered By: Jesus Alberto Wiggins on 06-18-2025 Epithelial cells.squamous LM Ql (Urine sed) 0 SEEN /hpf 0-5 [facility] Urinalysis, Completeon 06-18 BACTERIA 0 SEEN Normal None Seen [facility] Comment on above: Order Comment: REHAN TER SPECIMEN Performed By: #### L 400.0001 #### [facility] Laboratory [address] [place], [address] EPI,SQUAMOUS 0 SEEN Normal [address] [place] [address] Comment on above: Order Comment: REHAN TER SPECIMEN Performed By: #### L 400.0001 #### [facility] Laboratory [address] [place], [address] Mucus Ql (Urine sed) 0 SEEN Normal [facility] Comment on above: Order Comment: REHAN TER SPECIMEN Performed By: #### L 400.0001 #### [facility] Laboratory [address] [place], [address] RBC 0 SEEN Normal 0-[address] [place] [address] Comment on above: Order Comment: REHAN TER SPECIMEN Performed By: #### L 400.0001 #### [facility] Laboratory [address] [place], [address] WBC 0 SEEN Normal 0-[address] [place] [address] Comment on above: Order Comment: REHAN TER SPECIMEN Performed By: #### L 400.0001 #### [facility] Laboratory [address] [place], [address] Urine clarityOrdered By: Jesus Alberto Wiggins on 06-18-2025 Clarity (U) Clear Clear [facility] Urine color determinationOrd ered By: Jesus Alberto Wiggins on 06-18-2025 Color (U) Yellow Yellow [facility] Urine cultureOrdered By: Jesus Alberto Wiggins on 06-18-2025 Bacteria identified Cx Nom (U) Culture exhibits no growth. [facility] Urine glucose detectionOrder ed By: Jesus Alberto Wiggins on 06-18-2025 Glucose Ql (U) Normal mg/dl Normal [facility] Urine leukocyte esterase det ection by dipstickOrdered By: Jesus Alberto Wiggins on 06-18-2025 Leukocyte esterase Test strip Ql (U) Negative Negative [facility] Urine pHOrdered By: Jesus Alberto Wiggins on 06-18-2025 pH (U) 6.0 [pH] 5.0 - 8.0 [facility] Urine sediment bacteria coun t by microscopy (number/high power field)Ordered By: Jesus Alberto Wiggins on 06-18-2025 Bacteria LM.HPF (Urine sed) [#/Area] 0 /[HPF] None Seen [facility] Urine specific gravity measu rementOrdered By: Jesus Alberto Wiggins on 06-18-2025 Specific gravity (U) [Rel density] 1.020 1.002-1.030 [facility] Urine urobilinogen measureme ntOrdered By: Jesus Alberto Wiggins on 06-18-2025 Urobilinogen Ql (U) Normal mg/dl Normal [facility] White blood cell countOrdere d By: Jesus Alberto Wiggins on 06-18-2025 White blood cell count 0 SEEN /hpf 0-5 [facility] 12 Lead EKGon 06-17-2025 12 Lead EKG [facility] Cardiovascular Services [address] [place] [address] 12 Lead EKG 06/17/25 0500 MR#: [id number] Acct: [id number] Name: FAWN CAMERON Rep #: [id number] : 1935 89 From: Heather Diaz MD Attending Dr: Dr. Jesus Alberto Wiggins MD Status: ADM IN Ordering Dr: Carlos Yang MD Date: 06/17/25 Location: TCU Sex: M C Admitted: 07/30/25 Test Reason : PRE-OP Blood Pressure : */* mmHG Vent. Rate : 75 BPM Atrial Rate : 75 BPM P-R Int : 184 ms QRS Dur : 92 ms QT Int : 380 ms P-R-T Axes : 38 -15 48 degrees QTcB Int : 424 ms Normal sinus rhythm Normal ECG No previous ECGs available Confirmed by HEATHER DIAZ ([id number]), department editor SEFERINO SAUCEDA ([id number]) on 06/17/2025 2:01:21 PM Referred By: Jesus Alberto Wiggins Confirmed By: HEATHER DIAZ 06/17/25 1401 Date Heather Diaz MD CC: Dr. Devan Barrera MD; Dr. Carlos Yang MD; Dr. Jesus Alberto Wiggins MD Signed Normal [facility] Absolute lymphocyte countOrd ered By: Carlos Yang on 06-17-2025 Lymphocytes Auto (Unsp spec) [#/Vol] 1.17 10*3/uL 0.83-4.51 [facility] Absolute neutrophil countOrd ered By: Carlos Yang on 06-17-2025 Neutrophils (Bld) [#/Vol] 3.8 10*3/uL 2.0-7.7 [facility] [facility] Activated partial thrombopla stin time (aPTT) in platelet poor plasma by coagulation aOrdered By: Carlos Yang on 06-17-2025 aPTT Coag (PPP) [Time] 26.3 s 24.1-36.[address] [facility] Anion gap in Serum or Plasma Ordered By: Carlos Yang on 06-17-2025 Anion gap [Moles/Vol] 11 mmol/L 5-15 [facility] Automated lymphocyte count a s percentage of total leukocytesOrdered By: Carlos Yang on 06-17-2025 Lymphocytes/100 WBC Auto (Unsp spec) 18.6 % Low 19-41 [facility] BUN/creatinine ratioOrdered By: Carlos Yang on 06-17-2025 Urea nitrogen/Creatinine [Mass ratio] 31.2 mg/mg High 10-20 [facility] Basic Metabolic Profile (BMP )on 06-17-2025 BUN/CRE 31.2 RATIO High 10-20 [facility] Comment on above: Performed By: #### L 500.2500, L100.0100 #### [facility] Laboratory [address] [place], [address] Calcium [Mass/Vol] 8.6 mg/dL Normal 7.6-11.0 [facility] Comment on above: Performed By: #### L 500.2500, L100.0100 #### [facility] Laboratory [address] [place], [address] Chloride [Moles/Vol] 96 mmol/L Low 98-108 [facility] Comment on above: Performed By: #### L 500.2500, L100.0100 #### [facility] Laboratory [address] [place], [address] CO2 [Moles/Vol] 23.9 mmol/L Normal 21.0-32.0 [facility] Comment on above: Performed By: #### L 500.2500, L100.0100 #### [facility] Laboratory [address] [place], [address] Creatinine [Mass/Vol] 0.64 mg/dL Low 0.70-1.20 [facility] Comment on above: Performed By: #### L 500.2500, L100.0100 #### [facility] [address] [place], [address] ECRCL 56.49 ml/min Normal 50-250 [facility] Comment on above: Performed By: #### L 500.2500, L100.0100 #### [facility] Laboratory [address] [place], [address] GAP 11 Normal 5-15 [facility] Comment on above: Performed By: #### L 500.2500, L100.0100 #### [facility] Laboratory [address] [place], [address] GFR/1.73 sq M.predicted among non-blacks MDRD (S/P/Bld) [Vol rate/Area] 91 mL/min/{1.73_m2} Normal >60 [facility] Comment on above: Result Comment: mL/m in/1.73m2 CKD-EPI Creatinine Equation (2020) Performed By: #### L 500.2500, L100.0100 #### [facility] Laboratory [address] [place], [address] Glucose [Mass/Vol] 96 mg/dL Normal 70-99 [facility] Comment on above: Performed By: #### L 500.2500, L100.0100 #### [facility] Laboratory [address] [place], [address] Potassium [Moles/Vol] 5.0 mmol/L Normal 3.3-5.1 [facility] Comment on above: Performed By: #### L 500.2500, L100.0100 #### [facility] [address] [place], [address] Sodium [Moles/Vol] 131 mmol/L Low 133-145 [facility] Comment on above: Performed By: #### L 500.2500, L100.0100 #### [facility] [address] [place], [address] Urea nitrogen [Mass/Vol] 20 mg/dL High 4-19 [facility] Comment on above: Performed By: #### L 500.2500, L100.0100 #### [facility] Laboratory [address] [place], [address] Basophil percentageOrdered B y: Carlos Yang on 06-17-2025 Basophils/100 WBC (Bld) 0.6 % 0-1 [facility] CBC W/Diff, Automatedon 05-23 Absolute Lymph 1.17 X10 3/uL Normal 0.83-4.51 [facility] Comment on above: Performed By: #### L 501.080 #### [facility] Laboratory [address] [place], [address] Absolute Neut 3.8 X10 3/uL Normal 2.0-7.7 [facility] Comment on above: Performed By: #### L 501.080 #### [facility] Laboratory [address] [place], [address] Basophils/100 WBC (Bld) 0.6 % Normal 0-1 [facility] Comment on above: Performed By: #### L 501.080 #### [facility] Laboratory [address] [place], [address] Eosinophils/100 WBC (Bld) 8.1 % High 0-5 [facility] Comment on above: Performed By: #### L 501.080 #### [facility] Laboratory [address] [place], [address] Erythrocyte distribution width (RBC) [Ratio] 14.3 % Normal 11.6-14.6 [facility] Comment on above: Performed By: #### L 501.080 #### [facility] Laboratory [address] [place], [address] Hematocrit (Bld) [Volume fraction] 31.2 % Low 40-54 [facility] Comment on above: Performed By: #### L 501.080 #### [facility] Laboratory [address] [place], [address] Hemoglobin (Bld) [Mass/Vol] 10.4 g/dL Low 13.0-16.5 [facility] Comment on above: Performed By: #### L 501.080 #### [facility] Laboratory [address] [place], [address] IG% 0.600 Normal 0.0-0.9 [facility] Comment on above: Result Comment: IG% - Immature Granulocytes (promyelocytes, myelocytes and metamyelocytes) > 1% indicates that a LEFT SHIFT is Present. Performed By: #### L 501.080 #### [facility] Laboratory [address] [place], [address] Lymphocytes/100 WBC (Bld) 18.6 % Low 19-41 [facility] Comment on above: Performed By: #### L 501.080 #### [facility] Laboratory [address] [place], [address] MCH (RBC) [Entitic mass] 32.9 pg High 27.0-32.0 [facility] Comment on above: Performed By: #### L 501.080 #### [facility] Laboratory [address] [place], [address] MCHC (RBC) [Mass/Vol] 33.3 g/dL Normal 32-36 [facility] Comment on above: Performed By: #### L 501.080 #### [facility] Laboratory [address] [place], [address] MCV (RBC) [Entitic vol] 98.7 fL High 80-94 [facility] Comment on above: Performed By: #### L 501.080 #### [facility] Laboratory [address] [place], [address] Monocytes/100 WBC (Bld) 12.2 % High 0-10 [facility] Comment on above: Performed By: #### L 501.080 #### [facility] Laboratory [address] [place], [address] Neutrophils/100 WBC (Bld) 59.9 % Normal 47-70 [facility] Comment on above: Performed By: #### L 501.080 #### [facility] Laboratory [address] [place], [address] Nucleated RBC (Bld) [#/Vol] 0 10*3/uL Normal 0-5 [facility] Comment on above: Performed By: #### L 501.080 #### [facility] Laboratory [address] [place], [address] Platelet mean volume (Bld) [Entitic vol] 9.0 fL Normal 6.2-12.0 [facility] Comment on above: Performed By: #### L 501.080 #### [facility] Laboratory [address] [place], [address] Platelets (Bld) [#/Vol] 285 10*3/uL Normal 150-450 [facility] Comment on above: Performed By: #### L 501.080 #### [facility] Laboratory [address] [place], [address] RBC (Bld) [#/Vol] 3.16 10*6/uL Low 4.6-6.2 [facility] Comment on above: Performed By: #### L 501.080 #### [facility] Laboratory [address] [place], [address] RDW SD 52.4 fl High 35.1-43.9 [facility] Comment on above: Performed By: #### L 501.080 #### [facility] Laboratory [address] [place], [address] WBC (Bld) [#/Vol] 6.3 10*3/uL Normal 4.4-11.0 [facility] Comment on above: Performed By: #### L 501.080 #### [facility] Laboratory [address] [place], [address] Carbon dioxide, total [Moles /volume] in Central venous bloodOrdered By: Carlos Yang on 06-17-2025 CO2 [Moles/Vol] 23.9 mmol/L 21.0-32.0 [facility] Chloride assayOrdered By: Tanja Yang on 06-17-2025 Chloride [Moles/Vol] 96 mmol/L Low 98-108 [facility] EGD Reporton 06-17-2025 EGD Report [facility] Medical Records Department [address] [place] [address] EGD Report MR#: [id number] Acct: [id number] Name: FAWN CAMERON Rep #: [id number] : 1935 89 From: Stan Ferrara DO PCP: Dr. Devan Barrera MD Status[place] [facility] Patient Name: Fawn Cameron Procedure Date: 06/17/2025 3:54 PM Date of : 1935 Age: 89 Procedure: Upper GI endoscopy Indications: Dysphagia Providers: Stan Ferrara DO Medicines: Monitored Anesthesia Care Patient Profile: This is an 89 year old male. Refer to note in patient chart for documentation of history and physical. Patient has symptoms of dysphagia with both liquids and solids. Complications: No immediate complications. Procedure: Pre-Anesthesia Assessment: - Prior to the procedure, a History and Physical was performed, and patient medications and allergies were reviewed. The patient is competent. The risks and benefits of the procedure and the sedation options and risks were discussed with the patient. All questions were answered and informed consent was obtained. Patient identification and proposed procedure were verified by the physician in the pre-procedure area. Mental Status Examination: alert and oriented. Airway Examination: normal oropharyngeal airway and neck mobility. Respiratory Examination: clear to auscultation. CV Examination: normal. Prophylactic Antibiotics: The patient does not require prophylactic antibiotics. Prior Anticoagulants: The patient has taken no anticoagulant or antiplatelet agents except for NSAID medication. ASA Grade Assessment: II - A patient with mild systemic disease. After reviewing the risks and benefits, the patient was deemed in satisfactory condition to undergo the procedure. The anesthesia plan was to use monitored anesthesia care (MAC). Immediately prior to administration of medications, the patient was re-assessed for adequacy to receive sedatives. The heart rate, respiratory rate, oxygen saturations, blood pressure, adequacy of pulmonary ventilation, and response to care were monitored throughout the procedure. The physical status of the patient was re-assessed after the procedure. After obtaining informed consent, the endoscope was passed under direct vision. Throughout the procedure, the patient's blood pressure, pulse, and oxygen saturations were monitored continuously. The Endoscope was introduced through the mouth, and advanced to the second part of duodenum. The upper GI endoscopy was accomplished without difficulty. The patient tolerated the procedure well. Scope In: 4:07:36 PM Scope Out: 4:18:21 PM Total Procedure Duration Time 0 hours 10 minutes 45 seconds Findings: Abnormal motility was noted at the cricopharyngeus and in the upper third of the esophagus. The cricopharyngeus was abnormal. There is a decrease in motility of the esophageal body. The distal esophagus/lower esophageal sphincter is spastic, but gives up passage to the endoscope. Secondary peristaltic waves are noted. A guidewire was placed and the scope was withdrawn. Dilation was performed with a Savary dilator with no resistance at 60 Fr. Area was successfully injected with 70 units botulinum toxin. There was evidence of an intact gastrostomy with a patent G-tube present in the gastric body. No gross lesions were noted in the entire examined duodenum. Impression: - Abnormal esophageal motility, established achalasia. Dilated. Injected with botulinum toxin. - Intact gastrostomy with a patent G-tube present. - No gross lesions in the entire examined duodenum. - No specimens collected. Recommendation: - Discharge patient to a residential. - Resume previous diet. - Continue present medications. Procedure Code(s): --- Professional --- 68366, Esophagogastroduodenos copy, flexible, transoral; with insertion of guide wire followed by passage of dilator(s) through esophagus over guide wire 45983, 59,51, Esophagogastroduodenos copy, flexible, transoral; with directed submucosal injection(s), any substance CPT copyright 2021 [employer]. All rights reserved. The codes documented in this report are preliminary and upon death surveys coder review may be revised to meet current compliance requirements. Stan Ferrara DO 06/17/2025 4:50:01 PM This report has been signed electronically. Number of Addenda: 0 Note Initiated On: 06/17/2025 3:54 PM 06/17/25 9970 Date Stan Ferrara DO Cosigner Signature: Date (if indicated) CC: Dr. Devan Barrera MD; Stan Ferrara DO Date Dictated: 06/17/25 1554 Date Transcribed: Game Designer: RF Signed Normal [facility] Electrocardiogram reportOrde red By: Heather Diaz on 06-17-2025 EKG study [facility] Cardiovascular Services [address] [place] [address] 12 Lead EKG 06/17/25 0500 MR#: [id number] Acct: [id number] Name: FAWN CAMERON Rep #:[id number] : 1935 89 From: Heather Diaz MD Attending Dr: Dr. Jesus Alberto Wiggins MD Status: ADM IN Ordering Dr: Carlos Yang MD Date: Location: [facility] Sex: M C Admitted: 05/20/25 Test Reason : PRE-OP Blood Pressure : */* mmHG Vent. Rate : 75 BPM Atrial Rate : 75 BPM P-R Int : 184 ms QRS Dur : 92 ms QT Int : 380 ms P-R-T Axes : 38 -15 48 degrees QTcB Int : 424 ms Normal sinus rhythm Normal ECG No previous ECGs available Confirmed by HEATHER DIAZ ([id number]), department editor SEFERINO SAUCEDA ([id number]) on 06/17/2025 2:01:21 PM Referred By: Jesus Alberto Wiggins Confirmed By: HEATHER DIAZ 06/17/25 1401 Date _ Heather Diaz MD CC: Dr. Devan Barrera MD; Dr. Carlos Yang MD; Dr. Jesus Alberto Wiggins MD ~ Signed [facility] Work Phone: Eosinophil percentageOrdered By: Carlos Yang on 06-17-2025 Eosinophils/100 WBC (Bld) 8.1 % High 0-5 [facility] Erythrocyte distribution wid th ratioOrdered By: Carlos Yang on 06-17-2025 Erythrocyte distribution width (RBC) [Ratio] 14.3 % 11.6-14.6 [facility] Erythrocyte distribution wid th standard deviationOrdered By: Carlos Yang on 06-17-2025 Erythrocyte distribution width (RBC) [Ratio] 52.4 fl High 35.1-43.9 [facility] Glomerular filtration rate ( GFR) estimation/1.73 sq m using serum, plasma, or whole bOrdered By: Carlos Yang on 06-17-2025 GFR/1.73 sq M.predicted among non-blacks MDRD (S/P/Bld) [Vol rate/Area] 91 mL/min/{1.73_m2} >60 [facility] Comment on above: mL/min/1.73m2 CKD-EP I Creatinine Equation (2020) Hematocrit Auto (Bld) [Volum e fraction]Ordered By: Carlos Yang on 06-17-2025 Hematocrit (Bld) [Volume fraction] 31.2 % Low 40-54 [facility] Hemoglobin measurementOrdere d By: Carlos Yang on 06-17-2025 Hemoglobin (Bld) [Mass/Vol] 10.4 g/dL Low 13.0-16.5 [facility] Immature granulocytes/100 WB C Auto (Bld)Ordered By: Carlos Yang on 06-17-2025 Immature granulocytes/100 WBC (Bld) 0.600 % 0.0-0.9 [facility] Comment on above: IG% - Immature Granu locytes (promyelocytes, myelocytes and metamyelocytes) > 1% indicates that a LEFT SHIFT is Present. International normalized rat io (INR) calculationOrdered By: Carlosayesha Yang on 06-17-2025 INR Coag (Bld) [Relative time] 1.0 {INR} [facility] MCV (mean corpuscular volume ) determinationOrdered By: Carlos Yang on 06-17-2025 MCV (RBC) [Entitic vol] 98.7 fL High 80-94 [facility] MR/OP.PROVATon 06-17-2025 MR/OP.[facility] Medical Records Department [address] [place] [address] Provation Physician Letter MR#: [id number] Acct: [id number] Name: FAWN CAMERON Rep #: [id number] : 1935 89 From: Stan Ferrara DO PCP: Dr. Devan Barrera MD Status:[facility] 06/17/2025 Devan Barrera Re : Upper GI endoscopy procedure for Fawn Cameron Dear Yuri This procedure was performed on Sunday, June 17, 2025. My impressions and recommendations are as follows: Impressions : - Abnormal esophageal motility, established achalasia. Dilated. Injected with botulinum toxin. - Intact gastrostomy with a patent G-tube present. - No gross lesions in the entire examined duodenum. - No specimens collected. Recommendations : - Discharge patient to a residential. - Resume previous diet. - Continue present medications. My findings are described in the full procedure note, which is enclosed. If I can be of further assistance, please feel free to contact me at . Sincerely, Stan Ferrara DO 06/17/2025 4:50:01 PM This report has been signed electronically. 06/17/25 1650 Date Stan Ferrara DO Cosigner Signature: Date (if indicated) CC: Dr. Devan Barrera MD; Stan Ferrara DO Date Dictated: 06/17/25 1554 Date Transcribed: Game Designer: CALIX[place] Signed [facility] MR/POSTOP.Nitza 06-17-2025 MR/POSTOP.[facility] Medical Records Department [address] [place] [address] Anesthesia Postop Eval I 06/17/25 1636 MR#: [id number] Acct: [id number] Name: FAWN CAMERON Rep #: [id number] : 1935 89 From: Karri Howell [employer] BU[employer]ER PCP: Dr. Devan Barrera MD Status:REG SDC Y Race: C Location: [place] [address] Anesthesia: Postop Eval I Current Vital Signs Temperature: 98.1 F Pulse Rate: 79 Blood Pressure: 110/65 Respiratory Rate: 16 Pulse Ox: 95 Assessment Airway patent: Yes Spontaneous unlabored respirations: Yes nausea: No Vomiting: No Anesthesia Complication: No Fluid Hydration Crystalloid volume administer (ml): 500 Total IV fluid infused: 500 Progress Note Anesthesia document: Postop Eval 1 completed: Yes 06/17/25 1637 Date [place] H[employer] BUYER Cosigner Signature: Date CC: Signed Normal [facility] Mean corpuscular hemoglobin (MCH) determinationOrdered By: Carlos Yang on 06-17-2025 MCH (RBC) [Entitic mass] 32.9 pg High 27.0-32.0 [facility] Mean corpuscular hemoglobin concentration (MCHC) determinationOrdered By: Carlos Yang on 06-17-2025 MCHC (RBC) [Mass/Vol] 33.3 g/dL 32-36 [facility] Mean platelet volume determi nationOrdered By: Carlos Yang on 06-17-2025 Platelet mean volume (Bld) [Entitic vol] 9.0 fL 6.2-12.0 [facility] Monocyte percentageOrdered B y: Carlos Yang on 06-17-2025 Monocytes/100 WBC (Bld) 12.2 % High 0-10 [facility] Neutrophil percentageOrdered By: Carlos Yang on 06-17-2025 Neutrophils/100 WBC (Bld) 59.9 % 47-70 [facility] Nucleated red blood cell per centageOrdered By: Carlos Yang on 06-17-2025 Nucleated RBC/100 WBC (Bld) [Ratio] 0 % 0-5 [facility] Partial Thromboplast Timeon 06-17-2025 aPTT Coag (Bld) [Time] 26.3 s Normal 24.1-36.[address] [facility] Comment on above: Performed By: #### L 500.2500, L100.0100 #### [facility] Laboratory [address] [place], [address] Platelet countOrdered By: Tanja Yang on 06-17-2025 Platelets (Bld) [#/Vol] 285 10*3/uL 150-450 [facility] Potassium measurement (mass/ volume)Ordered By: Carlos Yang on 06-17-2025 Potassium (Unsp spec) [Mass/Vol] 5.0 mmol/L 3.3-5.1 [facility] Prothrombin Time w/INRon INR Coag (PPP) [Relative time] 1.0 {INR} Normal [facility] Comment on above: Performed By: #### L 501.080 #### [facility] Laboratory [address] [place], [address] PT Coag (PPP) [Time] 13.8 s Normal 11.7-14.9 [facility] Comment on above: Performed By: #### L 501.080 #### [facility] Laboratory [address] [place], [address] Prothrombin timeOrdered By: Carlos Yang on 06-17-2025 PT Coag (PPP) [Time] 13.8 s 11.7-14.9 [facility] RBC Auto (Bld) [#/Vol]Ordere d By: Carlos Yang on 06-17-2025 RBC (Bld) [#/Vol] 3.16 10*6/uL Low 4.6-6.2 [facility] Serum creatinine measurement (mass/volume)Ordered By: Carlos Yang on 06-17-2025 Creatinine [Mass/Vol] 0.64 mg/dL Low 0.70-1.20 [facility] Serum glucose measurement (m ass/volume)Ordered By: Carlos Yeyo on 06-17-2025 Glucose [Mass/Vol] 96 mg/dL 70-99 [facility] Serum or plasma calcium praveen urement (mass/volume)Ordered By: [place] Toyo on 06-17-2025 Calcium [Mass/Vol] 8.6 mg/dL 7.6-11.0 [facility] Serum or plasma urea nitroge n measurement (mass/volume)Ordered By: [place] Toyo on 06-17-2025 Urea nitrogen [Mass/Vol] 20 mg/dL High 4-19 [facility] Sodium levelOrdered By: [place] [facility] on 06-17-2025 Sodium [Moles/Vol] 131 mmol/L Low 133-145 [facility] White blood cell (WBC) count Ordered By: [place] Toyo on 06-17-2025 WBC (Bld) [#/Vol] 6.3 10*3/uL 4.4-11.0 [facility] Bedside Glucoseon 06-15-2025 FINGERSTICK GLU 94 mg/dL Normal 74-106 [facility] Comment on above: Result Comment: MINDY GEMENT OF PATIENT CARE PER NURSING PROTOCOL Performed By: #### L 500.4050, L500.4100, L503.0106, L506.1001 #### [facility] Laboratory [address] [place], [address] FINGERSTICK GLU 123 mg/dL High 74-106 [facility] Comment on above: Result Comment: MINDY GEMENT OF PATIENT CARE PER NURSING PROTOCOL Performed By: #### L 500.2500, L100.0100 #### [facility] Laboratory [address] [place], [address] COVID 19 AG RAPID (ANNA Bland)on 06-15-2025 SARS-CoV-2 (COVID-19) RNA DONY+probe Ql (Unsp spec) *Negative results from patients with symptom onset beyond five days should be treated as presumptive and confirmed by a molecular assay if clinically necessary. Negative results should not be used as the sole basis for treatment or for patient management. SARS-CoV-2 Ag Resp Ql IA.rapid *Positive results do not differentiate between SARS-CoV and SARS-CoV-2. If differentiation of the specific SARS virus is desired an additional sample and an additional order is required. SARS-CoV-2 Ag Resp Ql IA.rapid * This test has not been FDA cleared or approved; the test has been authorized by FDA under an Emergency Use Authorization (EAU) for use by laboratories certified under CLIA that meet the requirements to perform moderate, high, or waived complexity tests. SARS-CoV-2 Ag Resp Ql IA.rapid Normal Reference Range: Negative SARS-CoV-2 (COVID 19) Negative RAPID METHOD [employer] COVID19 Ag Card Normal [facility] Comment on above: Performed By: #### L 500.4050, L500.4100, L503.0106, L506.1001 #### [facility] Laboratory [address] [place], [address] COVID-19 virus antigen assay Ordered By: Jesus Alberto Wiggins on 06-15-2025 SARS-CoV-2 (COVID-19) Ag IA.rapid Ql (Resp) [facility] [facility] Glucose measurement at [facility] deOrdered By: Jesus Alberto Wiggins on 06-15-2025 Glucose [Mass/Vol] 94 mg/dL 74-106 [facility] Comment on above: MANAGEMENT OF PATIEN T CARE PER NURSING PROTOCOL MR/CON.PCM.GIon 06-15-2025 MR/CON.PCM.GI [facility] Medical Records Department [address] [place] [address] Consultation - GI 06/15/25 1807 MR#: [id number] Acct: [id number] Name: FAWN CAMERON Rep #: [id number] : 1935 89 From: Stan Ferrara DO PCP: Dr. Devan Barrera MD Status:ADM IN Location: [place] [address] HPI Consult Data Date of Consult: 06/15/25 HPI Narrative Reason for Consultation: Ongoing dysphagia and abnormal swallowing study HPI Narrative: 89 year old male with below past medical history hospitalized for SDH, SAH, multiple traumatic fractures, complicated by dysphagia requiring dobbhoff TF, admitted to TCU with debility. I was consulted to see him due to his inability to swallow safely and need for placement of PEG tube. A PEG tube was placed. He recently underwent a repeat video swallow and was discovered to have problems at the level of the upper esophageal sphincter in decreased clearance of liquids once and into the esophagus. He has been having problems with dysphagia, coughing, and a wet, gurgly vocal quality following meals * Video Swallow Study (VFSS):???Shows poor upper esophageal sphincter (UES) opening during swallowing. * Oral Phase:???Noted to be intact and within functional limits. * Pharyngeal Phase: * Initiation of swallow is delayed, with bolus pooling in the pharyngeal and pyriform sinuses. * Hyolaryngeal excursion (upward and forward movement) is reduced, contributing to the poor UES opening. * Following the swallow, significant residue is observed in the pharyngeal area. * Airway Protection:???Penetrat ion and trace aspiration are observed with thin liquids due to UES dysfunction and residual pooling. * Esophageal Phase:???The limited view of the esophageal phase shows possible poor motility, but a full evaluation is warranted. [facility] Medical History Dysphagia Hyperlipidemia Depression BPH (benign prostatic hyperplasia) [...] PO QHS Constipation 05/20 Unknown History vitamins A,C,Z-zmon-yobgek 4,296 1 cap PO DAILY Eye Vitamin 5 Unknown History mcg-226 mg-90 mg capsule (Healthy Eyes SuperVision) doxazosin 4 mg tablet (Cardura) 4 mg PO QHS 05/25/25 Unknown Histo ry lactose-reduced food-fiber 0.07 See Rx Instructions feeding tube 0 05/25/25 Unknown History gram-1.5 kcal/mL liquid for tube .COMPLEX feed (Isosource 1.5 Randy) m (more content not included)... Normal [facility] Modified Barium Swallow Stud yon 06-15-2025 Modified Barium Swallow Study [facility] Speech Pathology [address] [place] [address] Modified Barium Swallow Study MR#: [id number] Acct: [id number] Name: FAWN CAMERON Rep #: [id number] : 1935 89 From: Lincoln Jensen M.A., [facility] [employer] Modified Barium Swallow Patient Information Study Date: 06/15/25 Study Time: 10:30 Direct Billable Minutes: 117 Total Minutes procedure reportin Diagnosis: Dysphagia R13.10 Referring Physician: Jesus Alberto Wiggins Chi Reason for Referral: Assess swallow function, assess risk for aspiration, and determine recommendations for least restrictive diet textures and compensatory strategies to improve swallowing safety. 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 Injuries:???1. Right orbital floor. 2. Buckle fracture right anterior cranial floor/orbital roof. 3. Small right subdural hematoma. 4. Trace right frontal SAH.???5. Bilateral pubic rami fracture with extension to acetabular wall.???6. Nondisplaced Sacral ala fracture right. Incidental findings:???1. 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 Left common iliac aneurysm..???3. Right common iliac aneurysm. During his hospitalization 05/10/25-05/20/25 he was also diagnosed with severe oropharyngeal dysphagia with recommendation for NPO. A Dobhoff was placed 05/14/25 after MBSS revealed severe oropharyngeal dysphagia w/ silent aspiration of all liquid consistencies. Other noted concerns from MBSS were severe cervical lordosis, delayed initiation of the pharyngeal swallow, incomplete airway closure, reduced pharyngeal constriction, reduced UES opening/duration, and ineffective cued coughs. Admitted to [facility]CU 05/20/[address], OT, PT prior to discharge home w/ . ???ST evaluation 05/21/2025 recommended NPO. 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 He has participated in 10 dysphagia therapy sessions w/ oropharyngeal strengthening in junction w/ NMES, as well as thin water trials w/ [employer] and vocal adduction exercises. The patient has been recommended for repeat MBSS today to re-evaluate swallow function, aspiration risk, and consider the patient for diet advancement if appropriate. PMH: Dysphagia, HLD, Depression, BPH, TIA, CAD, Carotid artery stenosis, Osteoarthritis, HTN, GERD, Sacral fracture, Bilateral pubic rami fractures, SAH, SDH, Orbital roof fracture, Orbital floor fracture, Debility. Current Diet Ordered: NPO Dentition: Natural Teeth and Missing Teeth Mental Status: Impaired Respiratory Status: Oxygenating on Room Air Penetration-Aspiration Scale Penetration-Aspiration Scale: OBJECTIVE ASSESSMENT OF SWALLOW FUNCTION (QUANTITATIVE ??? PER TRIAL): PENETRATION / ASPIRATION SCALE (DE [place]ES[place]): 1 = does not enter airway 2 = enters airway/above vocal folds/ejected 3 = enters airway/above vocal folds/not ejected 4 = enters airway/contacts vocal folds/ejected 5 = enters airway/contacts vocal folds/not ejected 6 = enters airway/below vocal folds/ejected 7 = enters airway/below vocal folds/not ejected despite effort 8 = enters airway/below vocal folds/no effort VIDEOFLOROSCOPIC SCALE SCORE (DE JESUS): Grade I = aspiration of material that has penetrated into the laryngeal vestibule, intact cough reflex Grade II = aspiration < 10 % of the bolus, intact cough reflex Grade III = aspiration of < 10 % of the bolus, reduced cough reflex or aspiration of > 10 % of the bolus, intact cough reflex Grade IV = aspiration of > 10 % of the bolus, reduced cough reflex Penetration-Aspiration Scale Score Thin Liquid via teaspoon: Result: 8= enters airway/below vocal folds/no effort Thin Liquid via teaspoon Chin tuck: Result: 7= enters airways/below vocal folds/not ejected despite effort Comment: Delayed, reflexive throat clear appeared to mostly clear aspirated and penetrated contrast. [place] Thick Liquid via teaspoon: Result: 3= enters airways/above vocal folds/not ejected [place] Thick Liquid via teaspoon Trial 2: Result: 3= enters airways/above vocal folds/not ejected [place] Thick Liquid via small single sip: cup: Result: 3= enters airways/above vocal folds/not ejected [place] via teaspoon: Result: 2= enter airway/above vocal folds/ejected Comment: Esophageal screen - Retention throughout the esophagus. [place] Thick Liquid via small single sip: cup Trial 2: Result: 7= enters airways/below vocal folds/not ejected despite effort Comment: Esophageal screen - Liquid wash somewhat cleared pudding retention in the esophagus; however, significant barium pudding retention remained in the middle esophagus after liquid wash. [place] Thick Liquid Trial 3: Result: 5= enters airways/contacts vocal folds/not ejected Comment: Reflexive throat appeared to fully clear penetrated contrast from the vocal folds and laryngeal vestibule. [place] Thick Liquid w/ Cued effortful, multiple (more content not included)... Normal [facility] Bedside Glucoseon 06-14-2025 FINGERSTICK GLU 97 mg/dL Normal 74-106 [facility] Comment on above: Result Comment: MINDY GEMENT OF PATIENT CARE PER NURSING PROTOCOL Performed By: #### L 500.2500, L100.0100 #### [facility] Laboratory [address] [facility] [address] FINGERSTICK GLU 94 mg/dL Normal 74-106 [facility] Comment on above: Result Comment: MINDY GEMENT OF PATIENT CARE PER NURSING PROTOCOL Performed By: #### L 500.2500, L100.0100 #### [facility] Laboratory [address] [facility] [address] Bedside Glucoseon 06-13-2025 FINGERSTICK GLU 144 mg/dL High 74-106 [facility] Comment on above: Result Comment: MINDY GEMENT OF PATIENT CARE PER NURSING PROTOCOL Performed By: #### L 500.2500, L100.0100 #### [facility] Laboratory [address] [facility] [address] FINGERSTICK GLU 131 mg/dL High 74-106 [facility] Comment on above: Result Comment: MINDY GEMENT OF PATIENT CARE PER NURSING PROTOCOL Performed By: #### L 500.2500, L100.0100 #### [facility] Laboratory [address] [facility] [address] FINGERSTICK GLU 90 mg/dL Normal 74-106 [facility] Comment on above: Result Comment: MINDY GEMENT OF PATIENT CARE PER NURSING PROTOCOL Performed By: #### L 500.2500, L100.0100 #### [facility] Laboratory [address] [place], [address] FINGERSTICK GLU 110 mg/dL High 74-106 [facility] Comment on above: Result Comment: MINDY GEMENT OF PATIENT CARE PER NURSING PROTOCOL Performed By: #### L 501.080 #### [facility] Laboratory [address] [place], [address] COVID 19 AG RAPID (ANNA Bland)on 06-13-2025 SARS-CoV-2 (COVID-19) RNA DONY+probe Ql (Unsp spec) *Negative results from patients with symptom onset beyond five days should be treated as presumptive and confirmed by a molecular assay if clinically necessary. Negative results should not be used as the sole basis for treatment or for patient management. SARS-CoV-2 Ag Resp Ql IA.rapid *Positive results do not differentiate between SARS-CoV and SARS-CoV-2. If differentiation of the specific SARS virus is desired an additional sample and an additional order is required. SARS-CoV-2 Ag Resp Ql IA.rapid * This test has not been FDA cleared or approved; the test has been authorized by FDA under an Emergency Use Authorization (EAU) for use by laboratories certified under CLIA that meet the requirements to perform moderate, high, or waived complexity tests. SARS-CoV-2 Ag Resp Ql IA.rapid Normal Reference Range: Negative SARS-CoV-2 (COVID 19) Negative RAPID METHOD BinaxNow COVID19 Ag Card Normal [facility] Comment on above: Performed By: #### L 500.4050, L500.4100, L503.0106, L506.1001 #### [facility] Laboratory [address] [place], [place], [id number] ([address] COVID-19 virus antigen assay Ordered By: Jesus Alberto Wiggins on 06-13-2025 SARS-CoV-2 (COVID-19) Ag IA.rapid Ql (Resp) [facility] Bedside Glucoseon 06-12-2025 FINGERSTICK GLU 91 mg/dL Normal 74-106 [facility] Comment on above: Result Comment: MINDY GEMENT OF PATIENT CARE PER NURSING PROTOCOL Performed By: #### L 501.080 #### [facility] [address] [place], [address] FINGERSTICK GLU 106 mg/dL Normal 74-106 [facility] Comment on above: Result Comment: MINDY GEMENT OF PATIENT CARE PER NURSING PROTOCOL Performed By: #### L 500.2500, L100.0100 #### [facility] [address] [place], [address] Basic Metabolic Profile (BMP )on 06-11-2025 BUN/CRE 27.7 RATIO High 10-20 [facility] Comment on above: Performed By: #### L 501.080 #### [facility] [address] [place], [address] Calcium [Mass/Vol] 8.4 mg/dL Normal 7.6-11.0 [facility] Comment on above: Performed By: #### L 501.080 #### [facility] [address] [place], [address] Chloride [Moles/Vol] 100 mmol/L Normal 98-108 [facility] Comment on above: Performed By: #### L 501.080 #### [facility] [address] [place], [address] CO2 [Moles/Vol] 24.1 mmol/L Normal 21.0-32.0 [facility] Comment on above: Performed By: #### L 501.080 #### [facility] [address] [place], [address] Creatinine [Mass/Vol] 0.59 mg/dL Low 0.70-1.20 [facility] Comment on above: Performed By: #### L 501.080 #### [facility] [address] [place], [address] ECRCL 56.49 ml/min Normal 50-250 [facility] Comment on above: Performed By: #### L 501.080 #### [facility] [address] [place], [address] GAP 10 Normal 5-15 [facility] Comment on above: Performed By: #### L 501.080 #### [facility] [address] [place], [address] GFR/1.73 sq M.predicted among non-blacks MDRD (S/P/Bld) [Vol rate/Area] 93 mL/min/{1.73_m2} Normal >60 [facility] Comment on above: Result Comment: mL/m in/1.73m2 CKD-EPI Creatinine Equation (2020) Performed By: #### L 501.080 #### [facility] [address] [place], [address] Glucose [Mass/Vol] 113 mg/dL High 70-99 [facility] Comment on above: Performed By: #### L 501.080 #### [facility] [address] [place], [address] Potassium [Moles/Vol] 4.5 mmol/L Normal 3.3-5.1 [facility] Comment on above: Performed By: #### L 501.080 #### [facility] [address] [place], [address] Sodium [Moles/Vol] 134 mmol/L Normal 133-145 [facility] Comment on above: Performed By: #### L 501.080 #### [facility] [address] [place], [address] Urea nitrogen [Mass/Vol] 16 mg/dL Normal 4-19 [facility] Comment on above: Performed By: #### L 501.080 #### [facility] [address] [place], [address] Bedside Glucoseon 06-11-2025 FINGERSTICK GLU 119 mg/dL High 74-106 [facility] Comment on above: Result Comment: MINDY GEMENT OF PATIENT CARE PER NURSING PROTOCOL Performed By: #### L 500.2500, L100.0100 #### [facility] [address] [place], [address] FINGERSTICK GLU 84 mg/dL Normal 74-106 [facility] Comment on above: Result Comment: MINDY GEMENT OF PATIENT CARE PER NURSING PROTOCOL Performed By: #### L 400.0001 #### [facility] [address] [place], [address] FINGERSTICK GLU 108 mg/dL High 74-106 [facility] Comment on above: Result Comment: MINDY GEMENT OF PATIENT CARE PER NURSING PROTOCOL Performed By: #### L 500.2500, L100.0100 #### [facility] [address] [place], [address] FINGERSTICK GLU 100 mg/dL Normal 74-106 [facility] Comment on above: Result Comment: MINDY GEMENT OF PATIENT CARE PER NURSING PROTOCOL Performed By: #### L 400.0001 #### [facility] [address] [place], [address] CBC W/Diff, Automatedon 05-23 Absolute Lymph 0.70 X10 3/uL Low 0.83-4.51 [facility] Comment on above: Performed By: #### L 501.080 #### [facility] [address] [place], [address] Absolute Neut 7.9 X10 3/uL High 2.0-7.7 [facility] Comment on above: Performed By: #### L 501.080 #### [facility] [address] [place], [address] Basophils/100 WBC (Bld) 0.5 % Normal 0-1 [facility] Comment on above: Performed By: #### L 501.080 #### [facility] [address] [place], [address] Eosinophils/100 WBC (Bld) 5.9 % High 0-5 [facility] Comment on above: Performed By: #### L 501.080 #### [facility] [address] [place], [address] Erythrocyte distribution width (RBC) [Ratio] 14.7 % High 11.6-14.6 [facility] Comment on above: Performed By: #### L 501.080 #### [facility] [address] [place], [address] Hematocrit (Bld) [Volume fraction] 29.9 % Low 40-54 [facility] Comment on above: Performed By: #### L 501.080 #### [facility] [address] [place], [address] Hemoglobin (Bld) [Mass/Vol] 9.7 g/dL Low 13.0-16.5 [facility] Comment on above: Performed By: #### L 501.080 #### [facility] [address] [place], [address] IG% 0.600 Normal 0.0-0.9 [facility] Comment on above: Result Comment: IG% - Immature Granulocytes (promyelocytes, myelocytes and metamyelocytes) > 1% indicates that a LEFT SHIFT is Present. Performed By: #### L 501.080 #### [facility] [address] [place], [address] Lymphocytes/100 WBC (Bld) 6.7 % Low 19-41 [facility] Comment on above: Performed By: #### L 501.080 #### [facility] [address] [place], [address] MCH (RBC) [Entitic mass] 32.3 pg High 27.0-32.0 [facility] Comment on above: Performed By: #### L 501.080 #### [facility] [address] [place], [address] MCHC (RBC) [Mass/Vol] 32.4 g/dL Normal 32-36 [facility] Comment on above: Performed By: #### L 501.080 #### [facility] [address] [place], [address] MCV (RBC) [Entitic vol] 99.7 fL High 80-94 [facility] Comment on above: Performed By: #### L 501.080 #### [facility] [address] [place], [address] Monocytes/100 WBC (Bld) 10.2 % High 0-10 [facility] Comment on above: Performed By: #### L 501.080 #### [facility] [address] [place], [address] Neutrophils/100 WBC (Bld) 76.1 % High 47-70 [facility] Comment on above: Performed By: #### L 501.080 #### [facility] [address] [place], [address] Nucleated RBC (Bld) [#/Vol] 0 10*3/uL Normal 0-5 [facility] Comment on above: Performed By: #### L 501.080 #### [facility] Laboratory [address] [place], [address] Platelet mean volume (Bld) [Entitic vol] 8.9 fL Normal 6.2-12.0 [facility] Comment on above: Performed By: #### L 501.080 #### [facility] [address] [place], [address] Platelets (Bld) [#/Vol] 216 10*3/uL Normal 150-450 [facility] Comment on above: Performed By: #### L 501.080 #### [facility] [address] [place], [address] RBC (Bld) [#/Vol] 3.00 10*6/uL Low 4.6-6.2 [facility] Comment on above: Performed By: #### L 501.080 #### [facility] [address] [place], [address] RDW SD 53.9 fl High 35.1-43.9 [facility] Comment on above: Performed By: #### L 501.080 #### [facility] [address] [place], [address] WBC (Bld) [#/Vol] 10.4 10*3/uL Normal 4.4-11.0 [facility] Comment on above: Performed By: #### L 501.080 #### [facility] [address] [place], [address] COVID 19 AG RAPID (ANNA Bland)on 06-11-2025 SARS-CoV-2 (COVID-19) RNA DONY+probe Ql (Unsp spec) *Negative results from patients with symptom onset beyond five days should be treated as presumptive and confirmed by a molecular assay if clinically necessary. Negative results should not be used as the sole basis for treatment or for patient management. SARS-CoV-2 Ag Resp Ql IA.rapid *Positive results do not differentiate between SARS-CoV and SARS-CoV-2. If differentiation of the specific SARS virus is desired an additional sample and an additional order is required. SARS-CoV-2 Ag Resp Ql IA.rapid * This test has not been FDA cleared or approved; the test has been authorized by FDA under an Emergency Use Authorization (EAU) for use by laboratories certified under CLIA that meet the requirements to perform moderate, high, or waived complexity tests. SARS-CoV-2 Ag Resp Ql IA.rapid Normal Reference Range: Negative SARS-CoV-2 (COVID 19) Negative RAPID METHOD BinaxNow COVID19 Ag Card Normal [facility] Comment on above: Performed By: #### L 500.4050, L500.4100, L503.0106, L506.1001 #### [facility] [address] [place], [address] COVID-19 virus antigen assay Ordered By: Jesus Alberto Wiggins on 06-11-2025 SARS-CoV-2 (COVID-19) Ag IA.rapid Ql (Resp) [facility] Bedside Glucoseon 06-10-2025 FINGERSTICK GLU 91 mg/dL Normal 74-106 [facility] Comment on above: Result Comment: MINDY GEMENT OF PATIENT CARE PER NURSING PROTOCOL Performed By: #### L 500.2500, L100.0100 #### [facility] [address] [place], [address] FINGERSTICK GLU 86 mg/dL Normal 74-106 [facility] Comment on above: Result Comment: MINDY GEMENT OF PATIENT CARE PER NURSING PROTOCOL Performed By: #### L 501.080 #### [facility] [address] [place], [address] Bedside Glucoseon 06-09-2025 FINGERSTICK GLU 103 mg/dL Normal 74-106 [facility] Comment on above: Result Comment: MINDY GEMENT OF PATIENT CARE PER NURSING PROTOCOL Performed By: #### L 500.4050, L500.4100, L503.0106, L506.1001 #### [facility] [address] [place], [address] FINGERSTICK GLU 147 mg/dL High -106 [facility] Comment on above: Result Comment: MINDY GEMENT OF PATIENT CARE PER NURSING PROTOCOL Performed By: #### L 500.4050, L500.4100, L503.0106, L506.1001 #### [facility] [address] [place], [address] FINGERSTICK GLU 129 mg/dL High 74-106 [facility] Comment on above: Result Comment: MINDY GEMENT OF PATIENT CARE PER NURSING PROTOCOL Performed By: #### L 500.2500, L100.0100 #### [facility] [address] [place], [address] FINGERSTICK GLU 112 mg/dL High 74-106 [facility] Comment on above: Result Comment: MINDY GEMENT OF PATIENT CARE PER NURSING PROTOCOL Performed By: #### L 500.4050, L500.4100, L503.0106, L506.1001 #### [facility] Laboratory [address] [place], [address] Abdomen Single Viewon 2024 Abdomen Single View [facility] Imaging Services [address] [place] [address] Abdomen Single View MR#: [id number] Acct: [id number] Name: FAWN CAMERON Rep #: [id number] : [id number] M [id number] From: Tra Brown MD PCP: Dr. Devan Barrera MD Status: ADM IN Study: Abdomen Single View Date of Exam: 06/08/25 Exam# [id number] Ordering Dr: Jesus Alberto Wiggins MD PROCEDURE: ABDOMEN SINGLE VIEW 06/08/2025 REASON FOR EXAM: DIARRHEA TECHNIQUE: ABDOMEN SINGLE VIEW COMPARISON: 05/24/2025. FINDINGS: Percutaneous gastrostomy tube projects over the epigastric region. Nonspecific, nonobstructive bowel gas pattern. No discernible free air. No unusual calcific densities. Imaged lung bases are clear. Multilevel degenerative changes of the spine with mild lumbar levoscoliotic curvature. 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 Qualitative osteopenia. Prominent atherosclerotic vascular calcifications. RAD/Abdomen Single View IMPRESSION: No radiographically evident acute abnormality. Nonobstructive gas pattern. Reading Location: [facility] CC: Dr. Devan Barrera MD; Dr. Jesus Alberto Wiggins MD Game Designer: Signed Normal [facility] Bedside Glucoseon 06-08-2025 FINGERSTICK GLU 102 mg/dL Normal 74-106 [facility] Comment on above: Result Comment: MINDY GEMENT OF PATIENT CARE PER NURSING PROTOCOL Performed By: #### L 500.4050, L500.4100, L503.0106, L506.1001 #### [facility] Laboratory [address] [place], [address] FINGERSTICK GLU 89 mg/dL Normal 74-106 [facility] Comment on above: Result Comment: MINDY GEMENT OF PATIENT CARE PER NURSING PROTOCOL Performed By: #### L 500.2500, L100.0100 #### [facility] Laboratory [address] [place], [address] FINGERSTICK GLU 118 mg/dL High -106 [facility] Comment on above: Result Comment: MINDY GEMENT OF PATIENT CARE PER NURSING PROTOCOL Performed By: #### L 500.2500, L100.0100 #### [facility] Laboratory [address] [place], [address] Bedside Glucoseon 06-07-2025 FINGERSTICK GLU 119 mg/dL High 74-106 [facility] Comment on above: Result Comment: MINDY GEMENT OF PATIENT CARE PER NURSING PROTOCOL Performed By: #### L 501.080 #### [facility] Laboratory [address] [place], [address] FINGERSTICK GLU 106 mg/dL Normal 74-106 [facility] Comment on above: Result Comment: MINDY GEMENT OF PATIENT CARE PER NURSING PROTOCOL Performed By: #### L 501.080 #### [facility] Laboratory [address] [place], [address] FINGERSTICK GLU 104 mg/dL Normal 74-106 [facility] Comment on above: Result Comment: MINDY GEMENT OF PATIENT CARE PER NURSING PROTOCOL Performed By: #### L 500.2500, L100.0100 #### [facility] Laboratory [address] [place], [address] Bedside Glucoseon 5 FINGERSTICK GLU 102 mg/dL Normal 74-106 [facility] Comment on above: Result Comment: MINDY GEMENT OF PATIENT CARE PER NURSING PROTOCOL Performed By: #### L 501.080 #### [facility] Laboratory [address] [place], [address] FINGERSTICK GLU 88 mg/dL Normal 74-106 [facility] Comment on above: Result Comment: MINDY GEMENT OF PATIENT CARE PER NURSING PROTOCOL Performed By: #### L 500.2500, L100.0100 #### [facility] Laboratory [address] [place], [address] FINGERSTICK GLU 106 mg/dL Normal 74-106 [facility] Comment on above: Result Comment: MINDY GEMENT OF PATIENT CARE PER NURSING PROTOCOL Performed By: #### L 500.4050, L500.4100, L503.0106, L506.1001 #### [facility] Laboratory [address] [place], [address] Bedside Glucoseon 06-05-2025 FINGERSTICK GLU 127 mg/dL High 74-106 [facility] Comment on above: Result Comment: Dext willow 50 Given MANAGEMENT OF PATIENT CARE PER NURSING PROTOCOL Performed By: #### L 501.080 #### [facility] Laboratory [address] [place], [address] FINGERSTICK GLU 110 mg/dL High 74-106 [facility] Comment on above: Result Comment: MINDY GEMENT OF PATIENT CARE PER NURSING PROTOCOL Performed By: #### L 501.080 #### [facility] Laboratory [address] [place], [address] FINGERSTICK GLU 97 mg/dL Normal 74-106 [facility] Comment on above: Result Comment: MINDY GEMENT OF PATIENT CARE PER NURSING PROTOCOL Performed By: #### L 500.4050, L500.4100, L503.0106, L506.1001 #### [facility] Laboratory [address] [place], [address] Basic Metabolic Profile (BMP )on 06-04-2025 BUN/CRE 24.9 RATIO High 10-20 [facility] Comment on above: Performed By: #### L 500.4050, L500.4100, L503.0106, L506.1001 #### [facility] Laboratory [address] [place], [address] Calcium [Mass/Vol] 8.0 mg/dL Normal 7.6-11.0 [facility] Comment on above: Performed By: #### L 500.4050, L500.4100, L503.0106, L506.1001 #### [facility] Laboratory [address] [place], [address] Chloride [Moles/Vol] 105 mmol/L Normal 98-108 [facility] Comment on above: Performed By: #### L 500.4050, L500.4100, L503.0106, L506.1001 #### [facility] Laboratory [address] [place], [address] CO2 [Moles/Vol] 22.9 mmol/L Normal 21.0-32.0 [facility] Comment on above: Performed By: #### L 500.4050, L500.4100, L503.0106, L506.1001 #### [facility] Laboratory [address] [place], [address] Creatinine [Mass/Vol] 0.69 mg/dL Low 0.70-1.20 [facility] Comment on above: Performed By: #### L 500.4050, L500.4100, L503.0106, L506.1001 #### [facility] Laboratory [address] [place], [address] ECRCL 56.19 ml/min Normal 50-250 [facility] Comment on above: Performed By: #### L 500.4050, L500.4100, L503.0106, L506.1001 #### [facility] Laboratory [address] [place], [address] GAP 9 Normal 5-15 [facility] Comment on above: Performed By: #### L 500.4050, L500.4100, L503.0106, L506.1001 #### [facility] [address] [place], [address] GFR/1.73 sq M.predicted among non-blacks MDRD (S/P/Bld) [Vol rate/Area] 88 mL/min/{1.73_m2} Normal >60 [facility] Comment on above: Result Comment: mL/m in/1.73m2 CKD-EPI Creatinine Equation (2020) Performed By: #### L 500.4050, L500.4100, L503.0106, L506.1001 #### [facility] Laboratory [address] [place], [address] Glucose [Mass/Vol] 79 mg/dL Normal 70-99 [facility] Comment on above: Performed By: #### L 500.4050, L500.4100, L503.0106, L506.1001 #### [facility] [address] [place], [address] Potassium [Moles/Vol] 4.3 mmol/L Normal 3.3-5.1 [facility] Comment on above: Performed By: #### L 500.4050, L500.4100, L503.0106, L506.1001 #### [facility] [address] [place], [address] Sodium [Moles/Vol] 137 mmol/L Normal 133-145 [facility] Comment on above: Performed By: #### L 500.4050, L500.4100, L503.0106, L506.1001 #### [facility] [address] [place], [address] Urea nitrogen [Mass/Vol] 17 mg/dL Normal 4-19 [facility] Comment on above: Performed By: #### L 500.4050, L500.4100, L503.0106, L506.1001 #### [facility] Laboratory [address] [place], [address] Bedside Glucoseon 06-04-2025 FINGERSTICK GLU 87 mg/dL Normal 74-106 [facility] Comment on above: Result Comment: MINDY GEMENT OF PATIENT CARE PER NURSING PROTOCOL Performed By: #### L 500.4050, L500.4100, L503.0106, L506.1001 #### [facility] [address] [place], [address] FINGERSTICK GLU 114 mg/dL High 74-106 [facility] Comment on above: Result Comment: MINDY GEMENT OF PATIENT CARE PER NURSING PROTOCOL Performed By: #### L 500.4050, L500.4100, L503.0106, L506.1001 #### [facility] [address] [place], [address] FINGERSTICK GLU 112 mg/dL High 74-106 [facility] Comment on above: Result Comment: MINDY GEMENT OF PATIENT CARE PER NURSING PROTOCOL Performed By: #### L 500.4050, L500.4100, L503.0106, L506.1001 #### [facility] [address] [place], [address] CBC W/Diff, Automatedon 05-22 Absolute Lymph 1.05 X10 3/uL Normal 0.83-4.51 [facility] Comment on above: Performed By: #### L 500.4050, L500.4100, L503.0106, L506.1001 #### [facility] Laboratory [address] [place], [address] Absolute Neut 8.7 X10 3/uL High 2.0-7.7 [facility] Comment on above: Performed By: #### L 500.4050, L500.4100, L503.0106, L506.1001 #### [facility] Laboratory [address] [place], [address] Basophils/100 WBC (Bld) 0.4 % Normal 0-1 [facility] Comment on above: Performed By: #### L 500.4050, L500.4100, L503.0106, L506.1001 #### [facility] Laboratory [address] [place], [address] Eosinophils/100 WBC (Bld) 5.4 % High 0-5 [facility] Comment on above: Performed By: #### L 500.4050, L500.4100, L503.0106, L506.1001 #### [facility] Laboratory [address] [place], [address] Erythrocyte distribution width (RBC) [Ratio] 14.4 % Normal 11.6-14.6 [facility] Comment on above: Performed By: #### L 500.4050, L500.4100, L503.0106, L506.1001 #### [facility] Laboratory [address] [place], [address] Hematocrit (Bld) [Volume fraction] 28.5 % Low 40-54 [facility] Comment on above: Performed By: #### L 500.4050, L500.4100, L503.0106, L506.1001 #### [facility] Laboratory [address] [place], [address] Hemoglobin (Bld) [Mass/Vol] 9.3 g/dL Low 13.0-16.5 [facility] Comment on above: Performed By: #### L 500.4050, L500.4100, L503.0106, L506.1001 #### [facility] [address] [place], [address] IG% 1.400 High 0.0-0.9 [facility] Comment on above: Result Comment: IG% - Immature Granulocytes (promyelocytes, myelocytes and metamyelocytes) > 1% indicates that a LEFT SHIFT is Present. Performed By: #### L 500.4050, L500.4100, L503.0106, L506.1001 #### [facility] Laboratory [address] [place], [address] Lymphocytes/100 WBC (Bld) 8.9 % Low 19-41 [facility] Comment on above: Performed By: #### L 500.4050, L500.4100, L503.0106, L506.1001 #### [facility] Laboratory [address] [place], [address] MCH (RBC) [Entitic mass] 33.1 pg High 27.0-32.0 [facility] Comment on above: Performed By: #### L 500.4050, L500.4100, L503.0106, L506.1001 #### [facility] Laboratory [address] [place], [address] MCHC (RBC) [Mass/Vol] 32.6 g/dL Normal 32-36 [facility] Comment on above: Performed By: #### L 500.4050, L500.4100, L503.0106, L506.1001 #### [facility] Laboratory [address] [place], [address] MCV (RBC) [Entitic vol] 101.4 fL High 80-94 [facility] Comment on above: Performed By: #### L 500.4050, L500.4100, L503.0106, L506.1001 #### [facility] Laboratory [address] [place], [address] Monocytes/100 WBC (Bld) 10.3 % High 0-10 [facility] Comment on above: Performed By: #### L 500.4050, L500.4100, L503.0106, L506.1001 #### [facility] Laboratory [address] [place], [address] Neutrophils/100 WBC (Bld) 73.6 % High 47-70 [facility] Comment on above: Performed By: #### L 500.4050, L500.4100, L503.0106, L506.1001 #### [facility] Laboratory [address] [place], [address] Nucleated RBC (Bld) [#/Vol] 0 10*3/uL Normal 0-5 [facility] Comment on above: Performed By: #### L 500.4050, L500.4100, L503.0106, L506.1001 #### [facility] Laboratory [address] [place], [address] Platelet mean volume (Bld) [Entitic vol] 8.8 fL Normal 6.2-12.0 [facility] Comment on above: Performed By: #### L 500.4050, L500.4100, L503.0106, L506.1001 #### [facility] Laboratory [address] [place], [address] Platelets (Bld) [#/Vol] 302 10*3/uL Normal 150-450 [facility] Comment on above: Performed By: #### L 500.4050, L500.4100, L503.0106, L506.1001 #### [facility] Laboratory [address] [place], [address] RBC (Bld) [#/Vol] 2.81 10*6/uL Low 4.6-6.2 [facility] Comment on above: Performed By: #### L 500.4050, L500.4100, L503.0106, L506.1001 #### [facility] Laboratory [address] [place], [address] RDW SD 52.4 fl High 35.1-43.9 [facility] Comment on above: Performed By: #### L 500.4050, L500.4100, L503.0106, L506.1001 #### [facility] Laboratory [address] [place], [address] WBC (Bld) [#/Vol] 11.8 10*3/uL High 4.4-11.0 [facility] Comment on above: Performed By: #### L 500.4050, L500.4100, L503.0106, L506.1001 #### [facility] Laboratory [address] [place], [address] Bedside Glucoseon 06-03-2025 FINGERSTICK GLU 119 mg/dL High 74-106 [facility] Comment on above: Result Comment: MINDY GEMENT OF PATIENT CARE PER NURSING PROTOCOL Performed By: #### L 500.4050, L500.4100, L503.0106, L506.1001 #### [facility] Laboratory [address] [place], [address] FINGERSTICK GLU 114 mg/dL High 74-106 [facility] Comment on above: Result Comment: MINDY GEMENT OF PATIENT CARE PER NURSING PROTOCOL Performed By: #### L 500.4050, L500.4100, L503.0106, L506.1001 #### [facility] Laboratory [address] [place], [address] FINGERSTICK GLU 103 mg/dL Normal 74-106 [facility] Comment on above: Result Comment: MINDY GEMENT OF PATIENT CARE PER NURSING PROTOCOL Performed By: #### L 500.4050, L500.4100, L503.0106, L506.1001 #### [facility] [address] [place], [address] FINGERSTICK GLU 84 mg/dL Normal 74-106 [facility] Comment on above: Result Comment: MINDY GEMENT OF PATIENT CARE PER NURSING PROTOCOL Performed By: #### L 501.080 #### [facility] [address] [place], [address] Bedside Glucoseon 06-02-2025 FINGERSTICK GLU 118 mg/dL High 74-106 [facility] Comment on above: Result Comment: MINDY GEMENT OF PATIENT CARE PER NURSING PROTOCOL Performed By: #### L 500.4050, L500.4100, L503.0106, L506.1001 #### [facility] [address] [place], [address] FINGERSTICK GLU 104 mg/dL Normal 74-106 [facility] Comment on above: Result Comment: MINDY GEMENT OF PATIENT CARE PER NURSING PROTOCOL Performed By: #### L 500.4050, L500.4100, L503.0106, L506.1001 #### [facility] [address] [place], [address] Bedside Glucoseon 06-01-2025 FINGERSTICK GLU 115 mg/dL High -106 [facility] Comment on above: Result Comment: MINDY GEMENT OF PATIENT CARE PER NURSING PROTOCOL Performed By: #### L 501.080 #### [facility] [address] [place], [address] FINGERSTICK GLU 113 mg/dL High 74-106 [facility] Comment on above: Result Comment: MINDY GEMENT OF PATIENT CARE PER NURSING PROTOCOL Performed By: #### L 500.4050, L500.4100, L503.0106, L506.1001 #### [facility] [address] [place], [address] FINGERSTICK GLU 109 mg/dL High 74-106 [facility] Comment on above: Result Comment: MINDY GEMENT OF PATIENT CARE PER NURSING PROTOCOL Performed By: #### L 501.080 #### [facility] [address] [place], [address] FINGERSTICK GLU 114 mg/dL High 74-106 [facility] Comment on above: Result Comment: MINDY GEMENT OF PATIENT CARE PER NURSING PROTOCOL Performed By: #### L 500.4050, L500.4100, L503.0106, L506.1001 #### [facility] [address] [place], [address] FINGERSTICK GLU 118 mg/dL High -106 [facility] Comment on above: Result Comment: MINDY GEMENT OF PATIENT CARE PER NURSING PROTOCOL Performed By: #### L 500.4050, L500.4100, L503.0106, L506.1001 #### [facility] [address] [place], [address] Glucose measurement at [facility] deOrdered By: Jesus Alberto Wiggins on 06-01-2025 Glucose [Mass/Vol] 109 mg/dL High 74-106 [facility] Comment on above: MANAGEMENT OF PATIEN T CARE PER NURSING PROTOCOL Bedside Glucoseon 05-31-2025 FINGERSTICK GLU 107 mg/dL High [address] [place] [address] Comment on above: Result Comment: MINDY GEMENT OF PATIENT CARE PER NURSING PROTOCOL Performed By: #### L 400.0001 #### [facility] [address] [place], [address] FINGERSTICK GLU 122 mg/dL High [address] [place] [address] Comment on above: Result Comment: MINDY GEMENT OF PATIENT CARE PER NURSING PROTOCOL Performed By: #### L 500.4050, L500.4100, L503.0106, L506.1001 #### [facility] [address] [place], [address] FINGERSTICK GLU 119 mg/dL High [address] [place] [address] Comment on above: Result Comment: MINDY GEMENT OF PATIENT CARE PER NURSING PROTOCOL Performed By: #### L 500.4050, L500.4100, L503.0106, L506.1001 #### [facility] [address] [place], [address] FINGERSTICK GLU 125 mg/dL High -106 [facility] Comment on above: Result Comment: MINDY GEMENT OF PATIENT CARE PER NURSING PROTOCOL Performed By: #### L 400.0001 #### [facility] [address] [place], [address] Bedside Glucoseon 05-30-2025 FINGERSTICK GLU 135 mg/dL High 74-106 [facility] Comment on above: Result Comment: MINDY GEMENT OF PATIENT CARE PER NURSING PROTOCOL Performed By: #### L 500.4050, L500.4100, L503.0106, L506.1001 #### [facility] [address] [place], [address] FINGERSTICK GLU 136 mg/dL High -106 [facility] Comment on above: Result Comment: MINDY GEMENT OF PATIENT CARE PER NURSING PROTOCOL Performed By: #### L 500.4050, L500.4100, L503.0106, L506.1001 #### [facility] [address] [place], [address] FINGERSTICK GLU 130 mg/dL High -[address] [place] [address] Comment on above: Result Comment: MINDY GEMENT OF PATIENT CARE PER NURSING PROTOCOL Performed By: #### L 500.4050, L500.4100, L503.0106, L506.1001 #### [facility] [address] [place], [address] FINGERSTICK GLU 128 mg/dL High -106 [facility] Comment on above: Result Comment: MINDY GEMENT OF PATIENT CARE PER NURSING PROTOCOL Performed By: #### L 500.4050, L500.4100, L503.0106, L506.1001 #### [facility] [address] [place], [address] Bedside Glucoseon 05-29-2025 FINGERSTICK GLU 116 mg/dL High 74-106 [facility] Comment on above: Result Comment: MINDY GEMENT OF PATIENT CARE PER NURSING PROTOCOL Performed By: #### L 400.0001 #### [facility] [address] [facility] [address] FINGERSTICK GLU 130 mg/dL High 74-106 [facility] Comment on above: Result Comment: MINDY GEMENT OF PATIENT CARE PER NURSING PROTOCOL Performed By: #### L 500.4050, L500.4100, L503.0106, L506.1001 #### [facility] [address] [place], [address] FINGERSTICK GLU 129 mg/dL High 74-106 [facility] Comment on above: Result Comment: MINDY GEMENT OF PATIENT CARE PER NURSING PROTOCOL Performed By: #### L 500.4050, L500.4100, L503.0106, L506.1001 #### [facility] [address] [place], [address] Absolute lymphocyte countOrd ered By: Jesus Alberto Wiggins on 05-28-2025 Lymphocytes Auto (Unsp spec) [#/Vol] 0.48 10*3/uL Low 0.83-4.51 [facility] Absolute neutrophil countOrd ered By: Jesus Alberto Wiggins on 05-28-2025 Neutrophils (Bld) [#/Vol] 15.6 10*3/uL High 2.0-7.7 [facility] Anion gap in Serum or Plasma Ordered By: Jesus Alberto Wiggins on 05-28-2025 Anion gap [Moles/Vol] 11 mmol/L 5-15 [facility] Automated blood erythrocyte countOrdered By: Jesus Alberto Wiggins on 05-28-2025 RBC (Bld) [#/Vol] 2.95 10*6/uL Low 4.6-6.2 [facility] Comment on above: Performed By: #### L 501.080 #### [facility] [address] [place], [address] Automated blood hematocrit ( percentage)Ordered By: Jesus Alberto Wiggins on 05-28-2025 Hematocrit (Bld) [Volume fraction] 29.0 % Low 40-54 [facility] Comment on above: Performed By: #### L 501.080 #### [facility] [address] [place], [address] Automated lymphocyte count a s percentage of total leukocytesOrdered By: Jesus Alberto Wiggins on 05-28-2025 Lymphocytes/100 WBC Auto (Unsp spec) 2.8 % Low 19-41 [facility] BUN/creatinine ratioOrdered By: Jesus Alberto Wiggins on 05-28-2025 Urea nitrogen/Creatinine [Mass ratio] 33.6 mg/mg High 10-20 [facility] Basic Metabolic Profile (BMP )on 05-28-2025 BUN/CRE 33.6 RATIO High 10-20 [facility] Comment on above: Performed By: #### L 501.080 #### [facility] Laboratory [address] [place], [address] Calcium [Mass/Vol] 8.2 mg/dL Normal 7.6-11.0 [facility] Comment on above: Performed By: #### L 501.080 #### [facility] Laboratory [address] [place], [address] Chloride [Moles/Vol] 101 mmol/L Normal 98-108 [facility] Comment on above: Performed By: #### L 501.080 #### [facility] Laboratory [address] [place], [address] CO2 [Moles/Vol] 23.9 mmol/L Normal 21.0-32.0 [facility] Comment on above: Performed By: #### L 501.080 #### [facility] Laboratory [address] [place], [address] Creatinine [Mass/Vol] 0.65 mg/dL Low 0.70-1.20 [facility] Comment on above: Performed By: #### L 501.080 #### [facility] Laboratory [address] [place], [address] ECRCL 56.19 ml/min Normal 50-250 [facility] Comment on above: Performed By: #### L 501.080 #### [facility] Laboratory [address] [place], [address] GAP 11 Normal 5-15 [facility] Comment on above: Performed By: #### L 501.080 #### [facility] Laboratory [address] [place], [address] GFR/1.73 sq M.predicted among non-blacks MDRD (S/P/Bld) [Vol rate/Area] 90 mL/min/{1.73_m2} Normal >60 [facility] Comment on above: Result Comment: mL/m in/1.73m2 CKD-EPI Creatinine Equation (2020) Performed By: #### L 501.080 #### [facility] Laboratory [address] [place], [address] Glucose [Mass/Vol] 146 mg/dL High 70-99 [facility] Comment on above: Performed By: #### L 501.080 #### [facility] Laboratory [address] [place], [address] Potassium [Moles/Vol] 4.1 mmol/L Normal 3.3-5.1 [facility] Comment on above: Performed By: #### L 501.080 #### [facility] Laboratory [address] [place], [address] Sodium [Moles/Vol] 135 mmol/L Normal 133-145 [facility] Comment on above: Performed By: #### L 501.080 #### [facility] Laboratory [address] [place], [address] Urea nitrogen [Mass/Vol] 22 mg/dL High 4-19 [facility] Comment on above: Performed By: #### L 501.080 #### [facility] Laboratory [address] [place], [address] Basophil percentageOrdered B y: Jesus [place]to Wiggins on 05-28-2025 Basophils/100 WBC (Bld) 0.1 % Normal 0-1 [facility] Comment on above: Performed By: #### L 501.080 #### [facility] Laboratory [address] [place], [address] Bedside Glucoseon 05-28-2025 FINGERSTICK GLU 113 mg/dL High 74-106 [facility] Comment on above: Result Comment: MINDY GEMENT OF PATIENT CARE PER NURSING PROTOCOL Performed By: #### L 500.4050, L500.4100, L503.0106, L506.1001 #### [facility] Laboratory [address] [place], [address] FINGERSTICK GLU 150 mg/dL High 74-106 [facility] Comment on above: Result Comment: MINDY GEMENT OF PATIENT CARE PER NURSING PROTOCOL Performed By: #### L 500.4050, L500.4100, L503.0106, L506.1001 #### [facility] Laboratory [address] [place], [address] FINGERSTICK GLU 162 mg/dL High 74-106 [facility] Comment on above: Result Comment: MINDY GEMENT OF PATIENT CARE PER NURSING PROTOCOL Performed By: #### L 400.0001 #### [facility] Laboratory [address] [place], [address] CBC W/Diff, Automatedon Absolute Lymph 0.48 X10 3/uL Low 0.83-4.51 [facility] Comment on above: Performed By: #### L 501.080 #### [facility] Laboratory [address] [place], [address] Absolute Neut 15.6 X10 3/uL High 2.0-7.7 [facility] Comment on above: Performed By: #### L 501.080 #### [facility] Laboratory [address] [place], [address] IG% 1.000 High 0.0-0.9 [facility] Comment on above: Result Comment: IG% - Immature Granulocytes (promyelocytes, myelocytes and metamyelocytes) > 1% indicates that a LEFT SHIFT is Present. Performed By: #### L 501.080 #### [facility] Laboratory [address] [place], [address] Lymphocytes/100 WBC (Bld) 2.8 % Low 19-41 [facility] Comment on above: Performed By: #### L 501.080 #### [facility] Laboratory [address] [place], [address] Nucleated RBC (Bld) [#/Vol] 0 10*3/uL Normal 0-5 [facility] Comment on above: Performed By: #### L 501.080 #### [facility] Laboratory [address] [place], [address] RDW SD 44.9 fl High 35.1-43.9 [facility] Comment on above: Performed By: #### L 501.080 #### [facility] Laboratory [address] [place], [address] Carbon dioxide, total [Moles /volume] in Central venous bloodOrdered By: Jesus [place]to Wiggins on 05-28-2025 CO2 [Moles/Vol] 23.9 mmol/L 21.0-32.0 [facility] Chloride assayOrdered By: Kelechi Wiggins on 05-28-2025 Chloride [Moles/Vol] 101 mmol/L 98-108 [facility] Eosinophil percentageOrdered By: Jesus [place]to Wiggins on 05-28-2025 Eosinophils/100 WBC (Bld) 0.0 % Normal 0-5 [facility] Comment on above: Performed By: #### L 501.080 #### [facility] Laboratory [address] [place], [place], [id number] Erythrocyte distribution wid th ratioOrdered By: Jesus [place]to Wiggins on 05-28-2025 Erythrocyte distribution width (RBC) [Ratio] 12.6 % Normal 11.6-14.6 [facility] Comment on above: Performed By: #### L 501.080 #### [facility] Laboratory [address] [place], [place], [id number] Erythrocyte distribution wid th standard deviationOrdered By: Jesus [place]to iWggins on 05-28-2025 Erythrocyte distribution width (RBC) [Ratio] 44.9 fl High 35.1-43.9 [facility] Glomerular filtration rate ( GFR) estimation/1.73 sq m using serum, plasma, or whole bOrdered By: Jesus [place]to Wiggins on 05-28-2025 GFR/1.73 sq M.predicted among non-blacks MDRD (S/P/Bld) [Vol rate/Area] 90 mL/min/{1.73_m2} >60 [facility] Comment on above: mL/min/1.73m2 CKD-EP I Creatinine Equation (2020) Hemoglobin measurementOrdere d By: Jesus [place]to Feliciano on 05-28-2025 Hemoglobin (Bld) [Mass/Vol] 9.6 g/dL Low 13.0-16.5 [facility] Comment on above: Performed By: #### L 501.080 #### [facility] Laboratory [address] [facility] [place], [place], [id number] Immature granulocytes/100 WB C Auto (Bld)Ordered By: Jesus [place]to Wiggins on 05-28-2025 Immature granulocytes/100 WBC (Bld) 1.000 % High 0.0-0.9 [facility] Comment on above: IG% - Immature Granu locytes (promyelocytes, myelocytes and metamyelocytes) > 1% indicates that a LEFT SHIFT is Present. MCV (mean corpuscular volume ) determinationOrdered By: Jesus [place]to Wiggins on 05-28-2025 MCV (RBC) [Entitic vol] 98.3 fL High 80-94 [facility] Comment on above: Performed By: #### L 501.080 #### [facility] Laboratory [address] [place], [address] Mean corpuscular hemoglobin (MCH) determinationOrdered By: Jesus [place]to Wiggins on 05-28-2025 MCH (RBC) [Entitic mass] 32.5 pg High 27.0-32.0 [facility] Comment on above: Performed By: #### L 501.080 #### [facility] Laboratory [address] [place], [address] Mean corpuscular hemoglobin concentration (MCHC) determinationOrdered By: Jesus [place]to Wiggins on 05-28-2025 MCHC (RBC) [Mass/Vol] 33.1 g/dL Normal 32-36 [facility] Comment on above: Performed By: #### L 501.080 #### [facility] Laboratory [address] [place], [address] Mean platelet volume determi nationOrdered By: Jesus Alberto Wiggins on 05-28-2025 Platelet mean volume (Bld) [Entitic vol] 9.3 fL Normal 6.2-12.0 [facility] Comment on above: Performed By: #### L 501.080 #### [facility] Laboratory [address] [place], [address] Monocyte percentageOrdered B y: Jesus Alberto Wiggins on 05-28-2025 Monocytes/100 WBC (Bld) 4.7 % Normal 0-10 [facility] Comment on above: Performed By: #### L 501.080 #### [facility] Laboratory [address] [place], [address] Neutrophil percentageOrdered By: Jesus Alberto Wiggins on 05-28-2025 Neutrophils/100 WBC (Bld) 91.4 % High 47-70 [facility] Comment on above: Performed By: #### L 501.080 #### [facility] Laboratory [address] [place], [address] Nucleated red blood cell per centageOrdered By: Jesus Alberto Feliciano on 05-28-2025 Nucleated RBC/100 WBC (Bld) [Ratio] 0 % 0-5 [facility] Platelet countOrdered By: Kelechi Wiggins on 05-28-2025 Platelets (Bld) [#/Vol] 550 10*3/uL High 150-450 [facility] Comment on above: Performed By: #### L 501.080 #### [facility] Laboratory [address] [place], [place], [address] Potassium measurement (mass/ volume)Ordered By: Jesus Alberto Wiggins on 05-28-2025 Potassium (Unsp spec) [Mass/Vol] 4.1 mmol/L 3.3-5.1 [facility] Serum creatinine measurement (mass/volume)Ordered By: Jesus Alberto Wiggins on 05-28-2025 Creatinine [Mass/Vol] 0.65 mg/dL Low 0.70-1.20 [facility] Serum glucose measurement (m ass/volume)Ordered By: Jesus Alberto Wiggins on 05-28-2025 Glucose [Mass/Vol] 146 mg/dL High 70-99 [facility] Serum or plasma calcium praveen urement (mass/volume)Ordered By: Jesus Alberto Wiggins on 05-28-2025 Calcium [Mass/Vol] 8.2 mg/dL 7.6-11.0 [facility] Serum or plasma urea nitroge n measurement (mass/volume)Ordered By: Jesus Alberto Wiggins on 05-28-2025 Urea nitrogen [Mass/Vol] 22 mg/dL High 4-19 [facility] Sodium levelOrdered By: Jesus Alberto Wiggins on 05-28-2025 Sodium [Moles/Vol] 135 mmol/L 133-145 [facility] White blood cell (WBC) count Ordered By: Jesus Alberto Wiggins on 05-28-2025 WBC (Bld) [#/Vol] 17.1 10*3/uL High 4.4-11.0 [facility] Comment on above: Performed By: #### L 501.080 #### [facility] Laboratory [address] [place], [address] Bedside Glucoseon 05-27-2025 FINGERSTICK GLU 129 mg/dL High 74-106 [facility] Comment on above: Result Comment: MINDY GEMENT OF PATIENT CARE PER NURSING PROTOCOL Performed By: #### L 500.4050, L500.4100, L503.0106, L506.1001 #### [facility] Laboratory [address] [place], [address] FINGERSTICK GLU 125 mg/dL High 74-106 [facility] Comment on above: Result Comment: MINDY GEMENT OF PATIENT CARE PER NURSING PROTOCOL Performed By: #### L 500.4050, L500.4100, L503.0106, L506.1001 #### [facility] Laboratory [address] [place], [address] FINGERSTICK GLU 138 mg/dL High 74-106 [facility] Comment on above: Result Comment: MINDY GEMENT OF PATIENT CARE PER NURSING PROTOCOL Performed By: #### L 500.4050, L500.4100, L503.0106, L506.1001 #### [facility] Laboratory [address] [place], [address] FINGERSTICK GLU 166 mg/dL High 74-106 [facility] Comment on above: Result Comment: MINDY GEMENT OF PATIENT CARE PER NURSING PROTOCOL Performed By: #### L 500.4050, L500.4100, L503.0106, L506.1001 #### [facility] Laboratory [address] [place], [address] Chest PA and Lateralon 05-27 Chest PA and Lateral [facility] [address] [place] [address] Chest PA and Lateral MR#: [id number] Acct: [id number] Name: FAWN CAMERON Lu Rep #: [id number] : [id number] M [id number] From: Gracie Baptiste PCP: Dr. Devan Barrera MD Status: ADM IN Study: Chest PA and Lateral Date of Exam: 05/27/25 Exam# [id number] Ordering Dr: Jesus Alberto Wiggins MD PROCEDURE: CHEST PA AND LATERAL 05/27/2025 REASON FOR EXAM: ASPIRATION PNEUMONIA. TECHNIQUE: CHEST PA AND LATERAL COMPARISON: AP chest of 05/26/2025 RAD/Chest PA and Lateral IMPRESSION: PNEUMOPERITONEUM is present. No evidence of pulmonary edema. No focal infiltrate is seen. A small right pleural effusion is noted. No left pleural effusion is seen. No pneumothorax is evident. Cardiomediastinal silhouette is stable, without evidence of cardiomegaly. No interval osseous changes noted. Reading Location: [place] [address] CC: Dr. Devan Barrera MD; Dr. Jesus Alberto Wiggins MD Game Designer: Signed Normal [facility] Gl[facility] at [facility] deOrdered By: Jesus Alberto Wiggins on 05-27-2025 Glucose [Mass/Vol] 125 mg/dL High 74-106 [facility] Comment on above: MANAGEMENT OF PATIEN T CARE PER NURSING PROTOCOL Glucose [Mass/Vol] 166 mg/dL High 74-106 [facility] Comment on above: MANAGEMENT OF PATIEN T CARE PER NURSING PROTOCOL Absolute lymphocyte countOrd ered By: Jesus Alberto Wiggins on 05-26-2025 Lymphocytes Auto (Unsp spec) [#/Vol] 0.61 10*3/uL Low 0.83-4.51 [facility] Absolute neutrophil countOrd ered By: Jesus Alberto Wiggins on 05-26-2025 Neutrophils (Bld) [#/Vol] 15.8 10*3/uL High 2.0-7.7 [facility] Anion gap in Serum or Plasma Ordered By: Jesus Alberto Wiggins on 05-26-2025 Anion gap [Moles/Vol] 9 mmol/L 5-15 [facility] Automated lymphocyte count a s percentage of total leukocytesOrdered By: Jesus Alberto Wiggins on 05-26-2025 Lymphocytes/100 WBC Auto (Unsp spec) 3.4 % Low 19-41 [facility] BUN/creatinine ratioOrdered By: Jesus Alberto Wiggins on 05-26-2025 Urea nitrogen/Creatinine [Mass ratio] 32.3 mg/mg High 10-20 [facility] Basic Metabolic Profile (BMP )on 05-26-2025 BUN/CRE 32.3 RATIO High 10-20 [facility] Comment on above: Performed By: #### L 500.4050, L500.4100, L503.0106, L506.1001 #### [facility] Laboratory [address] [place], [address] Calcium [Mass/Vol] 8.1 mg/dL Normal 7.6-11.0 [facility] Comment on above: Performed By: #### L 500.4050, L500.4100, L503.0106, L506.1001 #### [facility] Laboratory [address] [place], [address] Chloride [Moles/Vol] 97 mmol/L Low 98-108 [facility] Comment on above: Performed By: #### L 500.4050, L500.4100, L503.0106, L506.1001 #### [facility] Laboratory [address] [place], [address] CO2 [Moles/Vol] 24.2 mmol/L Normal 21.0-32.0 [facility] Comment on above: Performed By: #### L 500.4050, L500.4100, L503.0106, L506.1001 #### [facility] Laboratory [address] [place], [address] Creatinine [Mass/Vol] 0.61 mg/dL Low 0.70-1.20 [facility] Comment on above: Performed By: #### L 500.4050, L500.4100, L503.0106, L506.1001 #### [facility] Laboratory [address] [place], [address] ECRCL 56.19 ml/min Normal 50-250 [facility] Comment on above: Performed By: #### L 500.4050, L500.4100, L503.0106, L506.1001 #### [facility] Laboratory [address] [place], [address] GAP 9 Normal 5-15 [facility] Comment on above: Performed By: #### L 500.4050, L500.4100, L503.0106, L506.1001 #### [facility] Laboratory [address] [place], [address] GFR/1.73 sq M.predicted among non-blacks MDRD (S/P/Bld) [Vol rate/Area] 92 mL/min/{1.73_m2} Normal >60 [facility] Comment on above: Result Comment: mL/m in/1.73m2 CKD-EPI Creatinine Equation (2020) Performed By: #### L 500.4050, L500.4100, L503.0106, L506.1001 #### [facility] Laboratory [address] [place], [address] Glucose [Mass/Vol] 122 mg/dL High 70-99 [facility] Comment on above: Performed By: #### L 500.4050, L500.4100, L503.0106, L506.1001 #### [facility] Laboratory [address] [place], [address] Potassium [Moles/Vol] 3.6 mmol/L Normal 3.3-5.1 [facility] Comment on above: Performed By: #### L 500.4050, L500.4100, L503.0106, L506.1001 #### [facility] Laboratory [address] [place], [address] Sodium [Moles/Vol] 130 mmol/L Low 133-145 [facility] Comment on above: Performed By: #### L 500.4050, L500.4100, L503.0106, L506.1001 #### [facility] [address] [place], [address] Urea nitrogen [Mass/Vol] 20 mg/dL High 4-19 [facility] Comment on above: Performed By: #### L 500.4050, L500.4100, L503.0106, L506.1001 #### [facility] Laboratory [address] [place], [address] Basophil percentageOrdered B y: Jesus Alberto Wiggins on 05-26-2025 Basophils/100 WBC (Bld) 0.2 % 0-1 [facility] Bedside Glucoseon 05-26-2025 FINGERSTICK GLU 139 mg/dL High 74-106 [facility] Comment on above: Result Comment: MINDY GEMENT OF PATIENT CARE PER NURSING PROTOCOL Performed By: #### L 500.4050, L500.4100, L503.0106, L506.1001 #### [facility] Laboratory [address] [place], [address] FINGERSTICK GLU 129 mg/dL High 74-106 [facility] Comment on above: Result Comment: MINDY GEMENT OF PATIENT CARE PER NURSING PROTOCOL Performed By: #### L 500.4050, L500.4100, L503.0106, L506.1001 #### [facility] Laboratory [address] [place], [address] FINGERSTICK GLU 128 mg/dL High 74-106 [facility] Comment on above: Result Comment: MINDY GEMENT OF PATIENT CARE PER NURSING PROTOCOL Performed By: #### L 500.4050, L500.4100, L503.0106, L506.1001 #### [facility] Laboratory [address] [place], [address] FINGERSTICK GLU 131 mg/dL High 74-106 [facility] Comment on above: Result Comment: MINDY GEMENT OF PATIENT CARE PER NURSING PROTOCOL Performed By: #### L 400.0001 #### [facility] Laboratory [address] [place], [address] CBC W/Diff, Automatedon Absolute Lymph 0.61 X10 3/uL Low 0.83-4.51 [facility] Comment on above: Performed By: #### L 500.4050, L500.4100, L503.0106, L506.1001 #### [facility] Laboratory [address] [place], [address] Absolute Neut 15.8 X10 3/uL High 2.0-7.7 [facility] Comment on above: Performed By: #### L 500.4050, L500.4100, L503.0106, L506.1001 #### [facility] Laboratory [address] [place], [address] Basophils/100 WBC (Bld) 0.2 % Normal 0-1 [facility] Comment on above: Performed By: #### L 500.4050, L500.4100, L503.0106, L506.1001 #### [facility] Laboratory [address] [place], [address] Eosinophils/100 WBC (Bld) 0.6 % Normal 0-5 [facility] Comment on above: Performed By: #### L 500.4050, L500.4100, L503.0106, L506.1001 #### [facility] Laboratory [address] [place], [address] Erythrocyte distribution width (RBC) [Ratio] 12.5 % Normal 11.6-14.6 [facility] Comment on above: Performed By: #### L 500.4050, L500.4100, L503.0106, L506.1001 #### [facility] [address] [place], [address] Hematocrit (Bld) [Volume fraction] 29.1 % Low 40-54 [facility] Comment on above: Performed By: #### L 500.4050, L500.4100, L503.0106, L506.1001 #### [facility] Laboratory [address] [place], [address] Hemoglobin (Bld) [Mass/Vol] 9.7 g/dL Low 13.0-16.5 [facility] Comment on above: Performed By: #### L 500.4050, L500.4100, L503.0106, L506.1001 #### [facility] [address] [place], [address] IG% 1.000 High 0.0-0.9 [facility] Comment on above: Result Comment: IG% - Immature Granulocytes (promyelocytes, myelocytes and metamyelocytes) > 1% indicates that a LEFT SHIFT is Present. Performed By: #### L 500.4050, L500.4100, L503.0106, L506.1001 #### [facility] [address] [place], [address] Lymphocytes/100 WBC (Bld) 3.4 % Low 19-41 [facility] Comment on above: Performed By: #### L 500.4050, L500.4100, L503.0106, L506.1001 #### [facility] [address] [place], [address] MCH (RBC) [Entitic mass] 32.7 pg High 27.0-32.0 [facility] Comment on above: Performed By: #### L 500.4050, L500.4100, L503.0106, L506.1001 #### [facility] [address] [place], [address] MCHC (RBC) [Mass/Vol] 33.3 g/dL Normal 32-36 [facility] Comment on above: Performed By: #### L 500.4050, L500.4100, L503.0106, L506.1001 #### [facility] [address] [place], [address] MCV (RBC) [Entitic vol] 98.0 fL High 80-94 [facility] Comment on above: Performed By: #### L 500.4050, L500.4100, L503.0106, L506.1001 #### [facility] [address] [place], [address] Monocytes/100 WBC (Bld) 5.6 % Normal 0-10 [facility] Comment on above: Performed By: #### L 500.4050, L500.4100, L503.0106, L506.1001 #### [facility] [address] [place], [address] Neutrophils/100 WBC (Bld) 89.2 % High 47-70 [facility] Comment on above: Performed By: #### L 500.4050, L500.4100, L503.0106, L506.1001 #### [facility] [address] [place], [address] Nucleated RBC (Bld) [#/Vol] 0 10*3/uL Normal 0-5 [facility] Comment on above: Performed By: #### L 500.4050, L500.4100, L503.0106, L506.1001 #### [facility] [address] [place], [address] Platelet mean volume (Bld) [Entitic vol] 9.2 fL Normal 6.2-12.0 [facility] Comment on above: Performed By: #### L 500.4050, L500.4100, L503.0106, L506.1001 #### [facility] [address] [place], [address] Platelets (Bld) [#/Vol] 489 10*3/uL High 150-450 [facility] Comment on above: Performed By: #### L 500.4050, L500.4100, L503.0106, L506.1001 #### [facility] [address] [place], [address] RBC (Bld) [#/Vol] 2.97 10*6/uL Low 4.6-6.2 [facility] Comment on above: Performed By: #### L 500.4050, L500.4100, L503.0106, L506.1001 #### [facility] [address] [place], [address] RDW SD 44.6 fl High 35.1-43.9 [facility] Comment on above: Performed By: #### L 500.4050, L500.4100, L503.0106, L506.1001 #### [facility] [address] [place], [address] WBC (Bld) [#/Vol] 17.7 10*3/uL High 4.4-11.0 [facility] Comment on above: Performed By: #### L 500.4050, L500.4100, L503.0106, L506.1001 #### [facility] [address] [place], [address] COVID 19 AG RAPID (ANNA Bland)on 05-26-2025 SARS-CoV-2 (COVID-19) RNA DONY+probe Ql (Unsp spec) *Negative results from patients with symptom onset beyond five days should be treated as presumptive and confirmed by a molecular assay if clinically necessary. Negative results should not be used as the sole basis for treatment or for patient management. SARS-CoV-2 Ag Resp Ql IA.rapid *Positive results do not differentiate between SARS-CoV and SARS-CoV-2. If differentiation of the specific SARS virus is desired an additional sample and an additional order is required. SARS-CoV-2 Ag Resp Ql IA.rapid * This test has not been FDA cleared or approved; the test has been authorized by FDA under an Emergency Use Authorization (EAU) for use by laboratories certified under CLIA that meet the requirements to perform moderate, high, or waived complexity tests. SARS-CoV-2 Ag Resp Ql IA.rapid Normal Reference Range: Negative SARS-CoV-2 (COVID 19) Negative RAPID METHOD [employer]Now COVID19 Ag Card Normal [facility] Comment on above: Performed By: #### L 500.4050, L500.4100, L503.0106, L506.1001 #### [facility] [address] [place], [address] COVID-19 virus antigen assay Ordered By: Jesus [place] Wiggins on 05-26-2025 SARS-CoV-2 (COVID-19) Ag IA.rapid Ql (Resp) [facility] CTA Chest W/WO Contraston CTA Chest W/WO Contrast [facility] Imaging Services [address] [place] [address] CTA Chest W/WO Contrast MR#: [id number] Acct: [id number] Name: FAWN CAMERON Rep #: [id number] : 1935 M 89 From: Gerardo Fletcher MD PCP: Dr. Devan Barrera MD Status: REG CLI Study: CTA Chest W/WO Contrast Date of Exam: 05/26/25 Exam# [id number] Ordering Dr: Jesus [place] Wiggins MD PROCEDURE: CTA CHEST W/WO CONTRAST 05/26/2025 REASON FOR EXAM: R/O PE TECHNIQUE: CTA CHEST W/WO CONTRAST Multiplanar Sagittal and Coronal images were obtained. CONTRAST: Isovue 370 VOLUME: 100 mL One or more dose reduction techniques were used (e.g., Automated exposure control, adjustment of the mA and/or kV according to patient size, use of iterative reconstruction technique). RADIATION DOSE SUMMARY: CTDlvol: 442.06 mGy DLP: 16.25 mGycm COMPARISON: None. FINDINGS: Lower neck: The thyroid gland is normal. There is no supraclavicular lymphadenopathy. Mediastinum: No abnormal masses or lymphadenopathy. Heart/thoracic aorta: The heart size is normal. There is no pericardial effusion. 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 There is no thoracic aortic aneurysm or aortic dissection. RV/LV Diameter Ratio: Normal. Pulmonary Vessels: There are no pulmonary emboli. The main pulmonary artery is normal in diameter. Esophagus: There is a small hiatal hernia. Upper Abdomen: There is calcific vascular disease of the visualized abdominal aorta. There is an infrarenal abdominal aortic aneurysm measuring 3.6 cm in AP dimension and 4.8 cm in transverse dimension. Only the proximal end of the aneurysm was imaged. The aneurysm has apparent saccular and fusiform components. 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 There is moderate dextroscoliosis of the thoracolumbar spine. The soft tissues of the chest wall are unremarkable. Airways, lungs and pleura: There is mild upper lobe predominant paraseptal emphysema. There is a linear scar in the superior segment of the lower lobe of the right lung. There is bilateral lower lobe bronchiectasis with pleural-based scarring or atelectasis in the posterior basilar segments of both lower lobes. There are small bilateral pleural effusions. CT/CTA Chest W/WO Contrast IMPRESSION: 1. No evidence of pulmonary emboli. 2. Airspace disease in both lung bases consistent with atelectasis or scarring. There are small bilateral pleural effusions. 3. Calcific vascular disease of the thoracoabdominal aorta and coronary arteries. There is an infrarenal abdominal aortic aneurysm. 4. Other findings as noted. Reading Location: [id number] CC: Dr. Devan Barrera MD; Dr. Jseus [place] Wiggins MD Game Designer: Signed Normal [facility] Carbon dioxide, total [Moles /volume] in Central venous bloodOrdered By: Jesus [place] Wiggins on 05-26-2025 CO2 [Moles/Vol] 24.2 mmol/L 21.0-32.0 [facility] Chest PA and Lateralon 05-26 Chest PA and Lateral [facility] Imaging Services [address] [place] [address] Chest PA and Lateral MR#: [id number] Acct: [id number] Name: FAWN CAMERON Rep #: [id number] : 1935 M 89 From: Edil thompson MD PCP: Dr. Devan Barrera MD Status: ADM IN Study: Chest PA and Lateral Date of Exam: 05/26/25 Exam# [id number] Ordering Dr: Jesus [place] Wiggins MD PROCEDURE: CHEST PA AND LATERAL 05/26/2025 REASON FOR EXAM: CONGESTION, COUGH, SOB TECHNIQUE: CHEST PA AND LATERAL COMPARISON: Prior study dated May 21, 2025. FINDINGS: Hardware: The patient is status post left reverse shoulder replacement. Heart: The heart size is normal. Mediastinum: The mediastinal contour is unremarkable. Lungs: The lungs are clear. Blunting of the posterior costophrenic angles. Bones: Degenerative changes are identified within the thoracic spine. Osteoarthritis of the right glenohumeral joint. RAD/Chest PA and Lateral IMPRESSION: No acute infiltrate is seen. Blunting of the posterior costophrenic angles bilaterally. Reading Location: [id number] CC: Dr. Devan Barrera MD; Dr. Jesus [place] Wiggins MD Game Designer: Signed Normal [facility] Chloride assayOrdered By: Kelechi Wiggins on 05-26-2025 Chloride [Moles/Vol] 97 mmol/L Low 98-108 [facility] D-Dimer Quantitative (DVT/PE )on 05-26-2025 D-DIMER QUANT 5.68 FEU/ug/m Invalid Interpretation Code 0.27-0.49 [facility] Comment on above: Order Comment: CRITI RANDY VALUE CALLED TO ERMELINDA MENENDEZ05/26/25 1046 Annia Brayan.RESULTS READ BACK BY SAME. Result Comment: D-Di lala ELEVATED (>0.49): Additional studies and clinical assessments are indicated to conclude diagnosis of: Deep Vein Thrombosis (DVT) or Pulmonary Embolism (PE) Performed By: #### L 500.4050, L500.4100, L503.0106, L506.1001 #### [facility] [address] [place], [place], [id number] EGD Reporton 05-26-2025 EGD Report [facility] Medical Records Department [address] [place] [address] EGD Report MR#: [id number] Acct: [id number] Name: FAWN CAMERON Rep #: [id number] : 1935 89 From: Stan Ferrara DO PCP: Dr. Devan Barrera MD Status:[place] [facility] Patient Name: Fawn Cameron Procedure Date: 05/26/2025 7:08 AM Date of : 1935 Age: 89 Procedure: Upper GI endoscopy Indications: Dysphagia Providers: Stan Ferrara DO Medicines: Monitored Anesthesia Care Patient Profile: This is an 89 year old male. Refer to note in patient chart for documentation of history and physical. Patient has symptoms of dysphagia with both liquids and solids. Complications: No immediate complications. Procedure: Pre-Anesthesia Assessment: - Prior to the procedure, a History and Physical was performed, and patient medications and allergies were reviewed. The patient is competent. The risks and benefits of the procedure and the sedation options and risks were discussed with the patient. All questions were answered and informed consent was obtained. Patient identification and proposed procedure were verified by the physician in the pre-procedure area. Mental Status Examination: alert and oriented. Airway Examination: normal oropharyngeal airway and neck mobility. Respiratory Examination: clear to auscultation. CV Examination: normal. Prophylactic Antibiotics: The patient does not require prophylactic antibiotics. Prior Anticoagulants: The patient has taken no anticoagulant or antiplatelet agents. ASA Grade Assessment: II - A patient with mild systemic disease. After reviewing the risks and benefits, the patient was deemed in satisfactory condition to undergo the procedure. The anesthesia plan was to use monitored anesthesia care (MAC). Immediately prior to administration of medications, the patient was re-assessed for adequacy to receive sedatives. The heart rate, respiratory rate, oxygen saturations, blood pressure, adequacy of pulmonary ventilation, and response to care were monitored throughout the procedure. The physical status of the patient was re-assessed after the procedure. After obtaining informed consent, the endoscope was passed under direct vision. Throughout the procedure, the patient's blood pressure, pulse, and oxygen saturations were monitored continuously. The Endoscope was introduced through the mouth, and advanced to the second part of duodenum. The upper GI endoscopy was accomplished without difficulty. The patient tolerated the procedure well. Scope In: 7:33:35 AM Scope Out: 7:45:09 AM Total Procedure Duration Time 0 hours 11 minutes 34 seconds Findings: The examined esophagus was normal. Localized moderate inflammation characterized by erythema was found in the gastric body. The patient was placed in the supine position for PEG placement. The stomach was insufflated to appose gastric and abdominal hui. A site was located in the body of the stomach with excellent transillumination for placement. The abdominal wall was marked and prepped in a sterile manner. The area was anesthetized with 1 mL of 0.5% lidocaine. The trocar needle was introduced through the abdominal wall and into the stomach under direct endoscopic view. A snare was introduced through the endoscope and opened in the gastric lumen. The guide wire was passed through the trocar and into the open snare. The snare was closed around the guide wire. The endoscope and snare were removed, pulling the wire out through the mouth. A skin incision was made at the site of needle insertion. The endoscopically removable 20 Fr EndoVive Safety gastrostomy tube was lubricated. The G-tube was tied to the guide wire and pulled through the mouth and into the stomach. The trocar needle was removed, and the gastrostomy tube was pulled out from the stomach through the skin. The external bumper was attached to the gastrostomy tube, and the tube was cut to remove the guide wire. The final position of the gastrostomy tube was confirmed by relook endoscopy, and skin marking noted to be 4 cm at the external bumper. The final tension and compression of the abdominal wall by the PEG tube and external bumper were checked and revealed that the bumper was loose and lightly touching the skin. The feeding tube was capped, and the tube site cleaned and dressed. Estimated blood loss was minimal. No gross lesions were noted in the duodenal bulb. Impression: - Normal esophagus. - Gastritis. - No gross lesions in the duodenal bulb. - An endoscopically removable PEG placement was successfully completed. - No specimens collected. Recommendation: - Discharge patient to home. - Resume previous diet. - Continue present medications. Procedure Code(s): --- Professional --- 93856, Esophagogastroduodenos copy, flexibl (more content not included)... Normal [facility] Eosinophil percentageOrdered By: Jesus Alberto Wiggins on 05-26-2025 Eosinophils/100 WBC (Bld) 0.6 % 0-5 [facility] Erythrocyte distribution wid th ratioOrdered By: Jesus Alberto Wiggins on 05-26-2025 Erythrocyte distribution width (RBC) [Ratio] 12.5 % 11.6-14.6 [facility] Erythrocyte distribution wid th standard deviationOrdered By: [facility] 05-26-2025 Erythrocyte distribution width (RBC) [Ratio] 44.6 fl High 35.1-43.9 [facility] Glomerular filtration rate ( GFR) estimation/1.73 sq m using serum, plasma, or whole bOrdered By: [facility] on 05-26-2025 GFR/1.73 sq M.predicted among non-blacks MDRD (S/P/Bld) [Vol rate/Area] 92 mL/min/{1.73_m2} >60 [facility] Comment on above: mL/min/1.73m2 CKD-EP I Creatinine Equation (2020) Hematocrit Auto (Bld) [Volum e fraction]Ordered By: [facility] on 05-26-2025 Hematocrit (Bld) [Volume fraction] 29.1 % Low 40-54 [facility] Hemoglobin measurementOrdere d By: [facility] 05-26-2025 Hemoglobin (Bld) [Mass/Vol] 9.7 g/dL Low 13.0-16.5 [facility] Immature granulocytes/100 WB C Auto (Bld)Ordered By: [facility] 05-26-2025 Immature granulocytes/100 WBC (Bld) 1.000 % High 0.0-0.9 [facility] Comment on above: IG% - Immature Granu locytes (promyelocytes, myelocytes and metamyelocytes) > 1% indicates that a LEFT SHIFT is Present. MCV (mean corpuscular volume ) determinationOrdered By: [facility] 05-26-2025 MCV (RBC) [Entitic vol] 98.0 fL High 80-94 [facility] MR/OP.PROVATon 05-26-2025 [facility] Medical Records Department [address] [place] [address] Provation Physician Letter MR#: [id number] Acct: [id number] Name: FAWN CAMERON Rep #: [id number] : 1935 89 From: Stan Friend DO PCP: Dr. Devan Barrera MD Status:[place] [facility] 05/26/2025 Devan Barrera Re : Upper GI endoscopy procedure for Fawn Cameron Dear Yuri This procedure was performed on Monday, May 26, 2025. My impressions and recommendations are as follows: Impressions : - Normal esophagus. - Gastritis. - No gross lesions in the duodenal bulb. - An endoscopically removable PEG placement was successfully completed. - No specimens collected. Recommendations : - Discharge patient to home. - Resume previous diet. - Continue present medications. My findings are described in the full procedure note, which is enclosed. If I can be of further assistance, please feel free to contact me at . Sincerely, Stan Ferrara DO 05/26/2025 7:51:14 AM This report has been signed electronically. 05/26/25 0751 Date Stan Ferrara DO Cosigner Signature: Date (if indicated) CC: Dr. Devan Barrera MD; Stan Ferrara DO Date Dictated: 05/26/25707 Date Transcribed: Game Designer: RF Signed [facility] MR/POSTOP.[facility] 05-26-2025 MR/POSTOP.[facility] Medical Records Department [address] [place] [address] Anesthesia Postop Eval I 05/26/25813 MR#: [id number] Acct: [id number] Name: FAWN CAMERON Rep #: [id number] : 1935 89 From: Karri Howell CRNA PCP: Dr. Devan Barrera MD Status:REG [facility] Y Race: C Location: [place] [address] Anesthesia: Postop Eval I Current Vital Signs Temperature: 98 F Pulse Rate: 85 Blood Pressure: 92/72 Respiratory Rate: 18 Pulse Ox: 96 Assessment Airway patent: Yes Spontaneous unlabored respirations: Yes nausea: No Vomiting: No Anesthesia Complication: No Fluid Hydration Crystalloid volume administer (ml): 500 Total IV fluid infused: 500 Progress Note Anesthesia document: Postop Eval 1 completed: Yes 05/26/25814 Date Karri Bermudezbitt HIDE BUYER Cosigner Signature: Date CC: Signed Normal [facility] MR/[id number] 05-26-2025 [facility] Medical Records Department [address] [place] [address] Anesthesia Postop Eval II 05/26/25 1226 MR#: [id number] Acct: [id number] Name: FAWN CAMERON Lu Rep #: [id number] : 1935 89 From: Benigno Bateman MD PCP: Dr. Devan Barrera MD Status:REG SDC Y Race: C Location: [place] [address] Anesthesia Postop Eval I Sum Postop Eval Completion status Anesthesia document: Postop Eval 1 completed: Yes Anesthesia Postop Eval I Summary Anesthesia Postop Eval I Summary: Anesthesia Postop Eval I: Assessment Summary Airway patent Yes 05/26/25 08:15 HIDE [email or web address].TNES Spontaneous unlabored Yes 05/26/25 08:15 HIDE [email or web address].TNES respirations Mental status nausea No 05/26/25 08:15 HIDE [email or web address].TNES Vomiting No 05/26/25 08:15 HIDE BUYER.TNES Anesthesia Postop Eval I: Fluid Summary Crystalloid volume administer 500 05/26/25 08:15 HIDE [email or web address].TNES (ml) Colloids volume administered ( ml) Blood Product volume administered (ml) Total IV fluid infused 500 05/26/25 08:15 HIDE [email or web address].TNES Anesthesia Postop Eval I: Summary Notes Anesthesia Complication No 05/26/25 08:15 HIDE [email or web address].TNES Anesthesia Complication Comment: Post-operative progress note Anesthesia: Postop Eval II Evaluation Mental status: Awake and Calm Pain Level: 1 nausea: No Vomiting: No Progress Note Post-operative progress note: In PACU requiring oxygen via nasal cannula 2 to 4 L to maintain saturation 90 to 92%. Respiratory effort at baseline. Rhonchi on auscultation bilateral. I spoke over the phone with his primary care physician Dr. Wiggins. Will be going from PACU to transitional care where he came from. Dr. Wiggins agreed to do a chest x-ray and labs and follow-up. We discussed in detail the deconditioning of the patient and the need for close follow-up. Dr. Wiggins accepted the care and follow-up for the patient Complications Anesthesia Complication: No 05/26/25 1228 Date Benigno Bateman MD Cosigner Signature: Date CC: Signed Normal [facility] Mean corpuscular hemoglobin (MCH) determinationOrdered By: Jesus Alberto Wiggins on 05-26-2025 MCH (RBC) [Entitic mass] 32.7 pg High 27.0-32.0 [facility] Mean corpuscular hemoglobin concentration (MCHC) determinationOrdered By: Jesus Alberto Wiggins 05-26-2025 MCHC (RBC) [Mass/Vol] 33.3 g/dL 32-36 [facility] Mean platelet volume determi nationOrdered By: Jesus Alberto Wiggins 05-26-2025 Platelet mean volume (Bld) [Entitic vol] 9.2 fL 6.2-12.0 [facility] Monocyte percentageOrdered B y: Jesus Alberto Wiggins on 05-26-2025 Monocytes/100 WBC (Bld) 5.6 % 0-10 [facility] Natriuretic peptide.B prohor magnolia N-Terminal [Mass/volume] in Serum or PlasmaOrdered By: Jesus Alberto Wiggins on 05-26-2025 Natriuretic peptide.B prohormone N-Terminal [Mass/Vol] 259 pg/mL <1800 [facility] Comment on above: Heart Failure Unlike ly: < 300 pg/mLHeart Failure Likely< 50 Years: > 450 pg/mL50-75 Years: > 900 pg/mL>75 Years: > 1800 pg/mL Neutrophil percentageOrdered By: Jesus Alberto Wiggins on 05-26-2025 Neutrophils/100 WBC (Bld) 89.2 % High 47-70 [facility] Nucleated red blood cell per centageOrdered By: Jesus Alberto Wiggins on 05-26-2025 Nucleated RBC/100 WBC (Bld) [Ratio] 0 % 0-5 [facility] Platelet countOrdered By: Kelechi Wiggins on 05-26-2025 Platelets (Bld) [#/Vol] 489 10*3/uL High 150-450 [facility] Potassium measurement (mass/ volume)Ordered By: Jesus Alberto Wiggins on 05-26-2025 Potassium (Unsp spec) [Mass/Vol] 3.6 mmol/L 3.3-5.1 [facility] Pro- Brain NATRIURETIC PEPTI Db 05-26-2025 Natriuretic peptide B (Bld) [Mass/Vol] 259 pg/mL Normal <=1800 [facility] Comment on above: Result Comment: Hear t Failure Unlikely: < 300 pg/mL Heart Failure Likely < 50 Years: > 450 pg/mL 50-75 Years: > 900 pg/mL >75 Years: > 1800 pg/mL Performed By: #### L 500.4050, L500.4100, L503.0106, L506.1001 #### [facility] [address] [place], [place] [address], [address] RBC Auto (Bld) [#/Vol]Ordere d By: Jesus Alberto Wiggins on 05-26-2025 RBC (Bld) [#/Vol] 2.97 10*6/uL Low 4.6-6.2 [facility] RESPIRATORY PANEL MOLECULARo n 05-26-2025 RP PANEL ADENOVIRUS Not Detected INFLUENZA A Not Detected INFLUENZA A (SUBTYPE H1) Not Detected INFLUENZA A (SUBTYPE H3) Not Detected INFLUENZA B Not Detected HUMAN METAPHNEUMO Not Detected PARAINFLUENZA 1 Not Detected PARAINFLUENZA 2 Not Detected PARAINFLUENZA 3 Not Detected PARAINFLUENZA 4 Not Detected RHINOVIRUS Not Detected RSV A Not Detected RSV B Not Detected Normal [facility] Comment on above: Performed By: #### L 500.4050, L500.4100, L503.0106, L506.1001 #### [facility] [address] [place], [address] Respiratory pathogens detect ion panel by molecular detection methodOrdered By: Jesus Alberto Wiggins on 05-26-2025 Respiratory pathogens DNA and RNA panel DONY+probe (Resp) [facility] Serum creatinine measurement (mass/volume)Ordered By: Jesus Alberto Wiggins on 05-26-2025 Creatinine [Mass/Vol] 0.61 mg/dL Low 0.70-1.20 [facility] Serum glucose measurement (m ass/volume)Ordered By: Jesus Alberto Wiggins on 05-26-2025 Glucose [Mass/Vol] 122 mg/dL High 70-99 [facility] Serum or plasma calcium praveen urement (mass/volume)Ordered By: Jesus Alberto Wiggins on 05-26-2025 Calcium [Mass/Vol] 8.1 mg/dL 7.6-11.0 [facility] Serum or plasma urea nitroge n measurement (mass/volume)Ordered By: Jesus Alberto Wiggins on 05-26-2025 Urea nitrogen [Mass/Vol] 20 mg/dL High 4-19 [facility] Sodium levelOrdered By: Jesus Alberto Feliciano on 05-26-2025 Sodium [Moles/Vol] 130 mmol/L Low 133-145 [facility] White blood cell (WBC) count Ordered By: Jesus Alberto Wiggins on 05-26-2025 WBC (Bld) [#/Vol] 17.7 10*3/uL High 4.4-11.0 [facility] Bedside Glucoseon 05-25-2025 FINGERSTICK GLU 132 mg/dL High 74-106 [facility] Comment on above: Result Comment: MINDY BLUE OF PATIENT CARE PER NURSING PROTOCOL Performed By: #### L 500.4050, L500.4100, L503.0106, L506.1001 #### [facility] Laboratory [address] [place], [address] FINGERSTICK GLU 129 mg/dL High 74-106 [facility] Comment on above: Result Comment: MINDY GEMENT OF PATIENT CARE PER NURSING PROTOCOL Performed By: #### L 500.4050, L500.4100, L503.0106, L506.1001 #### [facility] [address] [place], [address] FINGERSTICK GLU 121 mg/dL High 74-106 [facility] Comment on above: Result Comment: MINDY GEMENT OF PATIENT CARE PER NURSING PROTOCOL Performed By: #### L 500.4050, L500.4100, L503.0106, L506.1001 #### [facility] [facility] [address] [place], [address] FINGERSTICK GLU 120 mg/dL High 74-106 [facility] Comment on above: Result Comment: MINDY GEMENT OF PATIENT CARE PER NURSING PROTOCOL Performed By: #### L 501.080 #### [facility] [address] [place], [address] Abdomen Single Viewon 2024 Abdomen Single View [facility] Imaging Services [address] [facility] [place] [place] [address] Abdomen Single View MR#: [id number] Acct: [id number] Name: FAWN CAMERON Rep #: [id number] : 1935 M 89 From: Henry Wesley DO PCP: Dr. Devan Barrera MD Status: ADM IN Study: Abdomen Single View Date of Exam: 05/24/25 Exam# [id number] Ordering Dr: Jesus Alberto Wiggins MD PROCEDURE: [...] NG tube in satisfactory position. Reading [facility] CC: Dr. Devan Barrera MD; Dr. Jesus Alberto Wiggins MD Game Designer: Signed Normal [facility] Bedside Glucoseon 05-24-2025 FINGERSTICK GLU 116 mg/dL High 74-106 [facility] Comment on above: Result Comment: MINDY GEMENT OF PATIENT CARE PER NURSING PROTOCOL Performed By: #### L 500.4050, L500.4100, L503.0106, L506.1001 #### [facility] [address] [place], [address] FINGERSTICK GLU 117 mg/dL High 74-106 [facility] Comment on above: Result Comment: MINDY GEMENT OF PATIENT CARE PER NURSING PROTOCOL Performed By: #### L 400.0001 #### [facility] [address] [place], [address] FINGERSTICK GLU 122 mg/dL High 74-106 [facility] Comment on above: Result Comment: MINDY GEMENT OF PATIENT CARE PER NURSING PROTOCOL Performed By: #### L 400.0001 #### [facility] [address] [place], [address] Bilirubin, totalOrdered By: Jesus Alberto Wiggins on 05-24-2025 Bilirubin [Mass/Vol] 0.37 mg/dL 0.00-1.30 [facility] Calculated very low density lipoprotein (VLDL) cholesterol measurementOrdered By: Jesus Alberto Wiggins on 05-24-2025 Calculated very low density lipoprotein (VLDL) cholesterol measurement 13 mg/dL 5-40 [facility] Comprehensive Metabolic Prof ilon 05-24-2025 Albumin [Mass/Vol] 3.0 g/dL Low 3.4-4.8 [facility] Comment on above: Performed By: #### L 500.4050, L500.4100, L503.0106, L506.1001 #### [facility] [address] [place], [address] Albumin/Globulin [Mass ratio] 1.3 {ratio} Normal 0.9-2.4 [facility] Comment on above: Performed By: #### L 500.4050, L500.4100, L503.0106, L506.1001 #### [facility] [address] [place], [address] ALK PHOS 147 U/L High 40-129 [facility] Comment on above: Performed By: #### L 500.4050, L500.4100, L503.0106, L506.1001 #### [facility] [address] [place], [address] ALT [Catalytic activity/Vol] 29 U/L Normal <=46 [facility] Comment on above: Performed By: #### L 500.4050, L500.4100, L503.0106, L506.1001 #### [facility] [address] [place], [address] AST [Catalytic activity/Vol] 23 U/L Normal <=37 [facility] Comment on above: Performed By: #### L 500.4050, L500.4100, L503.0106, L506.1001 #### [facility] [address] [place], [address] Bilirubin [Mass/Vol] 0.37 mg/dL Normal 0.00-1.30 [facility] Comment on above: Performed By: #### L 500.4050, L500.4100, L503.0106, L506.1001 #### [facility] [address] [place], [address] BUN/CRE 50.2 RATIO High 10-20 [facility] Comment on above: Performed By: #### L 500.4050, L500.4100, L503.0106, L506.1001 #### [facility] [address] [place], [address] Calcium [Mass/Vol] 8.3 mg/dL Normal 7.6-11.0 [facility] Comment on above: Performed By: #### L 500.4050, L500.4100, L503.0106, L506.1001 #### [facility] [address] [place], [address] Chloride [Moles/Vol] 96 mmol/L Low 98-108 [facility] Comment on above: Performed By: #### L 500.4050, L500.4100, L503.0106, L506.1001 #### [facility] [address] [place], [address] CO2 [Moles/Vol] 23.0 mmol/L Normal 21.0-32.0 [facility] Comment on above: Performed By: #### L 500.4050, L500.4100, L503.0106, L506.1001 #### [facility] [address] [place], [address] Creatinine [Mass/Vol] 0.78 mg/dL Normal 0.70-1.20 [facility] Comment on above: Performed By: #### L 500.4050, L500.4100, L503.0106, L506.1001 #### [facility] [address] [place], [address] ECRCL 56.19 ml/min Normal 50-250 [facility] Comment on above: Performed By: #### L 500.4050, L500.4100, L503.0106, L506.1001 #### [facility] [address] [place], [address] GAP 13 Normal 5-15 [facility] Comment on above: Performed By: #### L 500.4050, L500.4100, L503.0106, L506.1001 #### [facility] [address] [place], [address] GFR/1.73 sq M.predicted among non-blacks MDRD (S/P/Bld) [Vol rate/Area] 85 mL/min/{1.73_m2} Normal >60 [facility] Comment on above: Result Comment: mL/m in/1.73m2 CKD-EPI Creatinine Equation (2020) Performed By: #### L 500.4050, L500.4100, L503.0106, L506.1001 #### [facility] [address] [place], [address] Globulin (S) [Mass/Vol] 2.3 g/dL Normal 2.2-4.2 [facility] Comment on above: Performed By: #### L 500.4050, L500.4100, L503.0106, L506.1001 #### [facility] [address] [place], [address] Glucose [Mass/Vol] 136 mg/dL High 70-99 [facility] Comment on above: Performed By: #### L 500.4050, L500.4100, L503.0106, L506.1001 #### [facility] [address] [place], [address] Potassium [Moles/Vol] 3.8 mmol/L Normal 3.3-5.1 [facility] Comment on above: Performed By: #### L 500.4050, L500.4100, L503.0106, L506.1001 #### [facility] [address] [place], [address] Sodium [Moles/Vol] 132 mmol/L Low 133-145 [facility] Comment on above: Performed By: #### L 500.4050, L500.4100, L503.0106, L506.1001 #### [facility] [address] [place], [address] T PROT 5.3 g/dL Low 5.9-8.4 [facility] Comment on above: Performed By: #### L 500.4050, L500.4100, L503.0106, L506.1001 #### [facility] [address] [place], [address] Urea nitrogen [Mass/Vol] 39 mg/dL High 4-19 [facility] Comment on above: Performed By: #### L 500.4050, L500.4100, L503.0106, L506.1001 #### [facility] [address] [place], [address] LDL calc ser/plasOrdered By: Jesus Alberto Wiggins on 05-24-2025 Cholesterol in LDL [Mass/Vol] 62 mg/dL [facility] Comment on above: Jfafevnadc=203-642 m g/dL & Higher Rwfc=780 mg/dL or greaterFriedwald Equation for LDL-C Laboratory - Chemistry and C hemistry - challengeOrdered By: Jesus Alberto Wiggins on 05-24-2025 AST [Catalytic activity/Vol] 23 U/L <38 [facility] Lipid Profileon 05-24-2025 CHOL:HDL 3.13 Normal [facility] Comment on above: Performed By: #### L 500.4050, L500.4100, L503.0106, L506.1001 #### [facility] [address] [place], [address] Cholesterol [Mass/Vol] 110 mg/dL Normal <=[address] [facility] Comment on above: Result Comment: Chol esterol level, Desirable <200 mg/dL Borderline high cholesterol 200-239 mg/dL High cholesterol >=240 mg/dL Recommendations of the NCEP Adult Treatment Panel for the following risk-cutoff thresholds for the [place] population. Performed By: #### L 500.4050, L500.4100, L503.0106, L506.1001 #### [facility] [address] [place], [address] Cholesterol in HDL [Mass/Vol] 35 mg/dL Low [facility] Comment on above: Result Comment: Tawanna onal Cholesterol Education Program (NCEP) guidelines: <40 mg/dL: Low HDL-cholesterol (major risk factor for CHD) >= 60 mg/dL: High HDL-cholesterol (negative risk factor for CHD) HDL-cholesterol is affected by a number of factors, e.g. smoking, exercise, hormones, sex and age. Performed By: #### L 500.4050, L500.4100, L503.0106, L506.1001 #### [facility] [address] [place], [address] Cholesterol in LDL [Mass/Vol] 62 mg/dL Normal [facility] Comment on above: Result Comment: Bord dapiij=867-860 mg/dL Higher Pcal=137 mg/dL or greater Friedwald Equation for LDL-C Performed By: #### L 500.4050, L500.4100, L503.0106, L506.1001 #### [facility] [address] [place], [address] Cholesterol in VLDL [Mass/Vol] 13 mg/dL Normal 5-40 [facility] Comment on above: Performed By: #### L 500.4050, L500.4100, L503.0106, L506.1001 #### [facility] [address] [place], [address] Triglyceride [Mass/Vol] 65 mg/dL Normal [facility] Comment on above: Result Comment: The drugs N-Acetylcysteine and Metamizole may falsely depress this assay. Normal range: <150 mg/dL Borderline High: 150-199 mg/dL High: 200-499 mg/dL Very High: >500 mg/dL Performed By: #### L 500.4050, L500.4100, L503.0106, L506.1001 #### [facility] [address] [place], [address] Screening total cholesterol/ high density lipoprotein (HDL) cholesterol ratioOrdered By: Jesus Alberto Feliciano 05-24-2025 Cholesterol.total/Chol esterol in HDL [Mass ratio] 3.13 {ratio} [facility] Serum globulin measurementOr dered By: Jesus Alberto Wiggins 05-24-2025 Globulin (S) [Mass/Vol] 2.3 g/dL 2.2-4.2 [facility] Serum or plasma alanine noonan otransferase (ALT) measurementOrdered By: Jesus Alberto Wiggins 05-24-2025 ALT [Catalytic activity/Vol] 29 U/L <47 [facility] Serum or plasma albumin praveen urement (mass/volume)Ordered By: Jesus Alberto Wiggins 05-24-2025 Albumin [Mass/Vol] 3.0 g/dL Low 3.4-4.8 [facility] Serum or plasma albumin/glob ulin mass ratioOrdered By: Jesus Alberto Wiggins 05-24-2025 Albumin/Globulin [Mass ratio] 1.3 {ratio} 0.9-2.4 [facility] Serum or plasma alkaline dean sphatase measurementOrdered By: Jesus Alberto Wiggins 05-24-2025 ALP [Catalytic activity/Vol] 147 U/L High 40-129 [facility] Serum or plasma cholesterol in HDL measurement (mass/volume)Ordered By: Jesus Alberto Wiggins 05-24-2025 Cholesterol in HDL [Mass/Vol] 35 mg/dL Low >40 [facility] Comment on above: National Cholesterol Education Program (NCEP) guidelines:<40 mg/dL: Low HDL-cholesterol (major risk factor for CHD)>= 60 mg/dL: High HDL-cholesterol (negative risk factor for CHD)HDL-cholesterol is affected by a number of factors, e.g. smoking, exercise, hormones, sex and age. Serum or plasma cholesterol measurement (mass/volume)Ordered By: Jesus Alberto Wiggins 05-24-2025 Cholesterol [Mass/Vol] 110 mg/dL <[address] [facility] Comment on above: Cholesterol level, D esirable <200 mg/dLBorderline high cholesterol 200-239 mg/dLHigh cholesterol >=240 mg/dLRecommendations of the NCEP Adult Treatment Panel for the following risk-cutoff thresholds for the [place] population. Total proteinOrdered By: Jesus Alberto Wiggins 05-24-2025 Protein [Mass/Vol] 5.3 g/dL Low 5.9-8.4 [facility] Triglycerides measurementOrd ered By: Jesus Alberto Wiggins on 05-24-2025 Triglyceride [Mass/Vol] 65 mg/dL <199 [facility] Comment on above: The drugs N-Acetylcy steine and Metamizole may falsely depress this assay. Normal range: <150 mg/dLBorderline High: 150-199 mg/dLHigh: 200-499 mg/dLVery High: >500 mg/dL Vitamin B12on 05-24-2025 Cobalamin (Vitamin B12) [Mass/Vol] 649 pg/mL Normal 180-914 [facility] Comment on above: Performed By: #### L 500.4050, L500.4100, L503.0106, L506.1001 #### [facility] [address] [place], [address] Vitamin B12 ser/plasOrdered By: Jesus Alberto Wiggins on 05-24-2025 Cobalamin (Vitamin B12) [Mass/Vol] 649 pg/mL 180-914 [facility] Vitamin D,25 Hydroxyon 05-24 Vitamin D 25-OH 20.3 ng/mL Low 30-100 [facility] Comment on above: Result Comment: Spring min D Status Deficiency: <20 ng/mL (50nmol/L) Insufficiency: 20-30 ng/mL (50-75 nmol/L) Sufficiency: 30-100 ng/mL (75-250 nmol/L) Toxicity: >100 ng/mL (>250 nmol/L) Performed By: #### L 500.4050, L500.4100, L503.0106, L506.1001 #### [facility] [address] [place], [address] Bedside Glucoseon 05-23-2025 FINGERSTICK GLU 114 mg/dL High 74-106 [facility] Comment on above: Result Comment: MINDY BLUE OF PATIENT CARE PER NURSING PROTOCOL Performed By: #### L 400.0001 #### [facility] [address] [place], [address] FINGERSTICK GLU 140 mg/dL High 74-106 [facility] Comment on above: Result Comment: MINDY GEMENT OF PATIENT CARE PER NURSING PROTOCOL Performed By: #### L 501.080 #### [facility] [address] [place], [address] FINGERSTICK GLU 131 mg/dL High 74-106 [facility] Comment on above: Result Comment: MINDY GEMENT OF PATIENT CARE PER NURSING PROTOCOL Performed By: #### L 500.2500, L100.0100 #### [facility] [address] [place], [address] FINGERSTICK GLU 119 mg/dL High 74-106 [facility] Comment on above: Result Comment: MINDY GEMENT OF PATIENT CARE PER NURSING PROTOCOL Performed By: #### L 500.2500, L100.0100 #### [facility] [address] [place], [address] Bedside Glucoseon 05-22-2025 FINGERSTICK GLU 114 mg/dL High -106 [facility] Comment on above: Result Comment: MINDY GEMENT OF PATIENT CARE PER NURSING PROTOCOL Performed By: #### L 500.4050, L500.4100, L503.0106, L506.1001 #### [facility] [address] [place], [address] FINGERSTICK GLU 141 mg/dL High 74-106 [facility] Comment on above: Result Comment: MINDY GEMENT OF PATIENT CARE PER NURSING PROTOCOL Performed By: #### L 500.2500, L100.0100 #### [facility] [address] [place], [address] FINGERSTICK GLU 115 mg/dL High 74-106 [facility] Comment on above: Result Comment: MINDY GEMENT OF PATIENT CARE PER NURSING PROTOCOL Performed By: #### L 500.4050, L500.4100, L503.0106, L506.1001 #### [facility] [address] [place], [address] Urinalysis, Completeon 05-22 EPI,SQUAMOUS 0-5 SEEN Normal 0-5 [facility] Comment on above: Order Comment: REHAN TER SPECIMEN Performed By: #### L 500.4050, L500.4100, L503.0106, L506.1001 #### [facility] [address] [place], [address] RBC 0-5 SEEN Normal 0-5 [facility] Comment on above: Order Comment: REHAN TER SPECIMEN Performed By: #### L 500.4050, L500.4100, L503.0106, L506.1001 #### [facility] [address] [place], [address] WBC 0-5 SEEN Normal 0-5 [facility] Comment on above: Order Comment: REHAN TER SPECIMEN Performed By: #### L 500.4050, L500.4100, L503.0106, L506.1001 #### [facility] [address] [place], [address] Urine Cultureon 05-22-2025 URC Culture exhibits no growth. Normal [facility] Comment on above: Performed By: #### L 500.4050, L500.4100, L503.0106, L506.1001 #### [facility] [address] [place], [address] Basic Metabolic Profile (BMP )on 05-21-2025 BUN/CRE 41.0 RATIO High 10-20 [facility] Comment on above: Performed By: #### L 500.2500, L100.0100 #### [facility] [address] [place], [address] Calcium [Mass/Vol] 8.8 mg/dL Normal 7.6-11.0 [facility] Comment on above: Performed By: #### L 500.2500, L100.0100 #### [facility] [address] [place], [address] Chloride [Moles/Vol] 102 mmol/L Normal 98-108 [facility] Comment on above: Performed By: #### L 500.2500, L100.0100 #### [facility] [address] [place], [address] CO2 [Moles/Vol] 25.5 mmol/L Normal 21.0-32.0 [facility] Comment on above: Performed By: #### L 500.2500, L100.0100 #### [facility] [address] [place], [address] Creatinine [Mass/Vol] 0.77 mg/dL Normal 0.70-1.20 [facility] Comment on above: Performed By: #### L 500.2500, L100.0100 #### [facility] [address] [place], [address] ECRCL 56.19 ml/min Normal 50-250 [facility] Comment on above: Performed By: #### L 500.2500, L100.0100 #### [facility] [address] [place], [address] GAP 12 Normal 5-15 [facility] Comment on above: Performed By: #### L 500.2500, L100.0100 #### [facility] [address] [place], [address] GFR/1.73 sq M.predicted among non-blacks MDRD (S/P/Bld) [Vol rate/Area] 86 mL/min/{1.73_m2} Normal >60 [facility] Comment on above: Result Comment: mL/m in/1.73m2 CKD-EPI Creatinine Equation (2020) Performed By: #### L 500.2500, L100.0100 #### [facility] [address] [place], [address] Glucose [Mass/Vol] 133 mg/dL High 70-99 [facility] Comment on above: Performed By: #### L 500.2500, L100.0100 #### [facility] [address] [place], [address] Potassium [Moles/Vol] 4.1 mmol/L Normal 3.3-5.1 [facility] Comment on above: Performed By: #### L 500.2500, L100.0100 #### [facility] [address] [place], [address] Sodium [Moles/Vol] 139 mmol/L Normal 133-145 [facility] Comment on above: Performed By: #### L 500.2500, L100.0100 #### [facility] [address] [place], [address] Urea nitrogen [Mass/Vol] 31 mg/dL High 4-19 [facility] Comment on above: Performed By: #### L 500.2500, L100.0100 #### [facility] [address] [place], [address] Bedside Glucoseon 05-21-2025 FINGERSTICK GLU 127 mg/dL High 74-106 [facility] Comment on above: Result Comment: MINDY GEMENT OF PATIENT CARE PER NURSING PROTOCOL Performed By: #### L 500.4050, L500.4100, L503.0106, L506.1001 #### [facility] [address] [place], [address] FINGERSTICK GLU 121 mg/dL High 74-106 [facility] Comment on above: Result Comment: MINDY GEMENT OF PATIENT CARE PER NURSING PROTOCOL Performed By: #### L 500.4050, L500.4100, L503.0106, L506.1001 #### [facility] [address] [place], [address] FINGERSTICK GLU 130 mg/dL High 74-106 [facility] Comment on above: Result Comment: MINDY MIRZA OF PATIENT CARE PER NURSING PROTOCOL Performed By: #### L 500.4050, L500.4100, L503.0106, L506.1001 #### [facility] [address] [place], [address] Bilirubin Test strip Ql (U)O rdered By: Jesus Alberto Wiggins on 05-21-2025 Bilirubin Ql (U) Negative Negative [facility] Brain/Head without Contrasto n 05-21-2025 Brain/Head without Contrast [facility] Imaging Services [address] [place], [place] [address] Brain/Head without Contrast MR#: [id number] Acct: [id number] Name: FAWN CAMERON Rep #: [id number] : 1935 M 89 From: Tra Brown MD PCP: Dr. Devan Barrera MD Status: REG CLI Study: Brain/Head without Contrast Date of Exam: 04/23 11/15 Exam# [id number] Ordering Dr: Jesus Alberto Wiggins MD PROCEDURE: [...] acute territorial infarct. Atherosclerotic vascular calcifications. Absent afognak ocular lenses. Intact skull base and calvarium. [...] subdural hematoma collection or hygroma. Reading Location: [facility] CC: Dr. Devan Barrera MD; Dr. Jesus Alberto Wiggins MD Game Designer: Signed Normal [facility] CBC W/Diff, Automatedon - Absolute Lymph 1.20 X10 3/uL Normal 0.83-4.51 [facility] Comment on above: Performed By: #### L 500.2500, L100.0100 #### [facility] [address] [place], [address] Absolute Neut 9.3 X10 3/uL High 2.0-7.7 [facility] Comment on above: Performed By: #### L 500.2500, L100.0100 #### [facility] [address] [place], [address] Basophils/100 WBC (Bld) 0.9 % Normal 0-1 [facility] Comment on above: Performed By: #### L 500.2500, L100.0100 #### [facility] [address] [place], [address] Eosinophils/100 WBC (Bld) 1.7 % Normal 0-5 [facility] Comment on above: Performed By: #### L 500.2500, L100.0100 #### [facility] [address] [place], [address] Erythrocyte distribution width (RBC) [Ratio] 13.0 % Normal 11.6-14.6 [facility] Comment on above: Performed By: #### L 500.2500, L100.0100 #### [facility] [address] [place], [address] Hematocrit (Bld) [Volume fraction] 33.7 % Low 40-54 [facility] Comment on above: Performed By: #### L 500.2500, L100.0100 #### [facility] [address] [place], [address] Hemoglobin (Bld) [Mass/Vol] 10.9 g/dL Low 13.0-16.5 [facility] Comment on above: Performed By: #### L 500.2500, L100.0100 #### [facility] [address] [place], [address] IG% 2.200 High 0.0-0.9 [facility] Comment on above: Result Comment: IG% - Immature Granulocytes (promyelocytes, myelocytes and metamyelocytes) > 1% indicates that a LEFT SHIFT is Present. Performed By: #### L 500.2500, L100.0100 #### [facility] [address] [place], [address] Lymphocytes/100 WBC (Bld) 9.6 % Low 19-41 [facility] Comment on above: Performed By: #### L 500.2500, L100.0100 #### [facility] [address] [place], [address] MCH (RBC) [Entitic mass] 33.1 pg High 27.0-32.0 [facility] Comment on above: Performed By: #### L 500.2500, L100.0100 #### [facility] [address] [place], [address] MCHC (RBC) [Mass/Vol] 32.3 g/dL Normal 32-36 [facility] Comment on above: Performed By: #### L 500.2500, L100.0100 #### [facility] [address] [place], [address] MCV (RBC) [Entitic vol] 102.4 fL High 80-94 [facility] Comment on above: Performed By: #### L 500.2500, L100.0100 #### [facility] [address] [place], [address] Monocytes/100 WBC (Bld) 10.9 % High 0-10 [facility] Comment on above: Performed By: #### L 500.2500, L100.0100 #### [facility] [address] [place], [address] Neutrophils/100 WBC (Bld) 74.7 % High 47-70 [facility] Comment on above: Performed By: #### L 500.2500, L100.0100 #### [facility] [address] [place], [address] Nucleated RBC (Bld) [#/Vol] 0 10*3/uL Normal 0-5 [facility] Comment on above: Performed By: #### L 500.2500, L100.0100 #### [facility] [address] [place], [address] Platelet mean volume (Bld) [Entitic vol] 9.4 fL Normal 6.2-12.0 [facility] Comment on above: Performed By: #### L 500.2500, L100.0100 #### [facility] [address] [place], [address] Platelets (Bld) [#/Vol] 442 10*3/uL Normal 150-450 [facility] Comment on above: Performed By: #### L 500.2500, L100.0100 #### [facility] [address] [place], [address] RBC (Bld) [#/Vol] 3.29 10*6/uL Low 4.6-6.2 [facility] Comment on above: Performed By: #### L 500.2500, L100.0100 #### [facility] [address] [place], [address] RDW SD 48.3 fl High 35.1-43.9 [facility] Comment on above: Performed By: #### L 500.2500, L100.0100 #### [facility] [address] [place], [address] WBC (Bld) [#/Vol] 12.5 10*3/uL High 4.4-11.0 [facility] Comment on above: Performed By: #### L 500.2500, L100.0100 #### [facility] [address] [place], [address] Chest PA and Lateralon 05-21 Chest PA and Lateral [facility] Services [address] [place] [address] Chest PA and Lateral MR#: [id number] Acct: [id number] Name: FAWN CAMERON Rep #: [id number] : [id number] M [id number] From: Tra Brown MD PCP: Dr. Devan Barrera MD Status: ADM IN Study: Chest PA and Lateral Date of Exam: 05/21/25 Exam# [id number] Ordering Dr: Jesus Alberto Wiggins MD PROCEDURE: [...] IMPRESSION: No acute cardiopulmonary disease. Reading Location: [facility] CC: Dr. Devan Barrera MD; Dr. Jesus Alberto Wiggins MD Game Designer: Signed Normal [facility] Ketones Test strip Ql (U)Ord ered By: Jesus Alberto Wiggins on 05-21-2025 Ketones Ql (U) Negative Negative [facility] Microscopic analysis of urin e for red blood cells (RBC)Ordered By: Jesus Alberto Wiggins on 05-21-2025 Microscopic analysis of urine for red blood cells (RBC) 0-5 SEEN /hpf 0-5 [facility] Mucus LM Ql (Urine sed)Order ed By: Jesus Alberto Wiggins on 05-21-2025 Mucus Ql (Urine sed) 0 SEEN /hpf [facility] Nitrite Test strip Ql (U)Ord ered By: Jesus Alberto Wiggins on 05-21-2025 Nitrite Ql (U) Negative Negative [facility] Protein Test strip Ql (U)Ord ered By: Jesus Alberto Wiggins on 05-21-2025 Protein Ql (U) 30 mg/dl High Negative [facility] Squamous epithelial cells de tection in urine sediment by light microscopyOrdered By: Jesus Alberto Wiggins on 05-21-2025 Epithelial cells.squamous LM Ql (Urine sed) 0-5 SEEN /hpf 0-5 [facility] Urinalysis, Completeon 05-21 BACTERIA 0 SEEN Normal None Seen [facility] Comment on above: Order Comment: REHAN TER SPECIMEN Performed By: #### L 500.4050, L500.4100, L503.0106, L506.1001 #### [facility] [address] [place], [place], [id number] Mucus Ql (Urine sed) 0 SEEN Normal [facility] Comment on above: Order Comment: REHAN TER SPECIMEN Performed By: #### L 500.4050, L500.4100, L503.0106, L506.1001 #### [facility] [place], [address] Urine clarityOrdered By: Jesus Alberto Wiggins on 05-21-2025 Clarity (U) Clear Clear [facility] Urine color determinationOrd ered By: Jesus Alberto Wiggins on 05-21-2025 Color (U) Yellow Yellow [facility] Urine cultureOrdered By: Jesus Alberto Wiggins on 05-21-2025 Bacteria identified Cx Nom (U) Culture exhibits no growth. [facility] Urine glucose detectionOrder ed By: Jesus Alberto Wiggins on 05-21-2025 Glucose Ql (U) Normal mg/dl Normal [facility] Urine leukocyte esterase det ection by dipstickOrdered By: Jesus Alberto Wiggins on 05-21-2025 Leukocyte esterase Test strip Ql (U) Negative Negative [facility] Urine pHOrdered By: Jesus Alberto Wiggins on 05-21-2025 pH (U) 6.0 [pH] 5.0 - 8.0 [facility] Urine sediment bacteria coun t by microscopy (number/high power field)Ordered By: Jesus Alberto Wiggins on 05-21-2025 Bacteria LM.HPF (Urine sed) [#/Area] 0 /[HPF] None Seen [facility] Urine specific gravity measu rementOrdered By: Jesus Alberto Wiggins on 05-21-2025 Specific gravity (U) [Rel density] 1.015 1.002-1.030 [facility] Urine urobilinogen measureme ntOrdered By: Jesus Alberto Wiggins on 05-21-2025 Urobilinogen Ql (U) 1 mg/dl High Normal [facility] White blood cell countOrdere d By: Jesus Alberto Wiggins on 05-21-2025 White blood cell count 0-5 SEEN /hpf 0-5 [facility] CBC panel Auto (Bld)on 05-20 Erythrocyte distribution width (RBC) [Ratio] 13.0 % 11.5 - 14.5 % [facility] Hematocrit (Bld) [Volume fraction] 36.6 % Low 41.0 - 52.0 % [facility] Hemoglobin (Bld) [Mass/Vol] 11.5 g/dL Low 13.5 - 17.5 g/dL [facility] Interpretation and review of laboratory results Abnormal [facility] MCH (RBC) [Entitic mass] 33.1 pg 26.0 - 34.0 pg [facility] MCHC (RBC) [Mass/Vol] 31.4 g/dL Low 32.0 - 36.0 g/dL [facility] MCV (RBC) [Entitic vol] 106 fL High 80 - 100 fL [facility] Nucleated RBC/100 WBC (Bld) [Ratio] 0.0 % [facility] Platelets (Bld) [#/Vol] 456 10*3/uL High [facility] RBC (Bld) [#/Vol] 3.47 10*6/uL Low [facility] WBC (Bld) [#/Vol] 13.0 10*3/uL High [facility] Erythrocyte distribution width (RBC) [Ratio] 13.0 % Normal 11.5-14.5 [facility] Comment on above: Performed By: #### 2 4323-8 #### KALIN OSBORN ([id number]) [facility] ([facility]) [address] [place] [address] Hematocrit (Bld) [Volume fraction] 36.6 % Low 41.0-52.0 [facility] Comment on above: Performed By: #### 2 4323-8 #### KALIN OSBORN ([id number]) [facility] ([facility]) [address] [place] [address] Hemoglobin (Bld) [Mass/Vol] 11.5 g/dL Low 13.5-17.5 [facility] Comment on above: Performed By: #### 2 4323-8 #### KALIN OSBORN ([id number]) [facility] ([facility]) [address] [place] [address] MCH (RBC) [Entitic mass] 33.1 pg Normal 26.0-34.0 [facility] Comment on above: Performed By: #### 2 4323-8 #### KALIN OSBORN ([id number]) [facility] ([facility]) [address] [place] [address] MCHC (RBC) [Mass/Vol] 31.4 g/dL Low 32.0-36.0 [facility] Comment on above: Performed By: #### 2 4323-8 #### KALIN OSBORN ([id number]) [facility] ([facility]) [address] [place] [address] MCV (RBC) [Entitic vol] 106 fL High 80-100 [facility] Comment on above: Performed By: #### 2 432-8 #### KALIN OSBORN ([id number]) [facility] ([facility]) [address] [place] [address] Nucleated RBC/100 WBC (Bld) [Ratio] 0.0 /100 WBCs Normal 0.0-0.0 [facility] Comment on above: Performed By: #### 2 432-8 #### KALIN OSBORN ([id number]) [facility] ([facility]) [address] [place] [address] Platelets (Bld) [#/Vol] 456 x10*3/uL High 150-450 [facility] Comment on above: Performed By: #### 2 432-8 #### KALIN OSBORN ([id number]) [facility] ([facility]) [address] [place] [address]99 RBC (Bld) [#/Vol] 3.47 x10*6/uL Low 4.50-5.90 [facility] Comment on above: Performed By: #### 2 4323-8 #### KALIN OSBORN ([id number]) [facility] ([facility]) [address] [place] [address] WBC (Bld) [#/Vol] 13.0 x10*3/uL High 4.4-11.3 [facility] Comment on above: Performed By: #### 2 4323-8 #### KALIN OSBORN ([id number]) [facility] ([facility]) [address] [place] [address] Magnesiumon 05-20-2025 Magnesium [Mass/Vol] 1.92 mg/dL 1.60 - 2.40 mg/dL [facility] Magnesium [Mass/Vol] 1.92 mg/dL Normal 1.60-2.40 [facility] Comment on above: Performed By: #### 2 4323-8 #### GAGNON IRENA ([id number]) [facility] ([facility]) [address] [place] [address] Magnesium [Mass/Vol]on 05-20 Interpretation and review of laboratory results Normal [facility] No Panel Informationon 05-20 [facility] Renal function 2000 panelon 05-20-2025 Albumin BCP dye [Mass/Vol] 3.2 g/dL Low 3.4 - 5.0 g/dL [facility] Anion gap [Moles/Vol] 12 mmol/L 10 - 2 0 mmol/L [facility] Calcium [Mass/Vol] 8.8 mg/dL 8.6 - 10. 6 mg/dL [facility] Chloride [Moles/Vol] 104 mmol/L 98 - 10 7 mmol/L [facility] CO2 [Moles/Vol] 28 mmol/L 21 - 32 mmol/L [facility] Creatinine [Mass/Vol] 0.53 mg/dL 0.50 - 1.30 mg/dL [facility] eGFR - PINF [facility] Comment on above: Calculations of leonides mated GFR are performed using the 2020 CKD-EPI Study Refit equation without the race variable for the IDMS-Traceable creatinine methods. https://jasn.asnjournals.org/content//ASN.67872 26528 Glucose [Mass/Vol] 125 mg/dL High 74 - 99 mg/dL [facility] Interpretation and review of laboratory results Abnormal [facility] Phosphate [Mass/Vol] 3.8 mg/dL 2.5 - 4 .9 mg/dL [facility] Potassium [Moles/Vol] 4.0 mmol/L 3.5 - 5.3 mmol/L [facility] Sodium [Moles/Vol] 140 mmol/L 136 - 145 mmol/L [facility] Urea nitrogen [Mass/Vol] 26 mg/dL High 6 - 23 mg/dL [facility] Albumin BCP dye [Mass/Vol] 3.2 g/dL Low 3.4-5.0 [facility] Comment on above: Performed By: #### 2 4323-8 #### KALIN OSBORN ([id number]) [facility] ([facility]) [address] [place] [address] Anion gap [Moles/Vol] 12 mmol/L Normal 10-20 [facility] Comment on above: Performed By: #### 2 4323-8 #### KALIN OSBORN ([id number]) [facility] ([facility]) [address] [place] [address]60[address] Calcium [Mass/Vol] 8.8 mg/dL Normal 8.6-10.6 [facility] Comment on above: Performed By: #### 2 4323-8 #### KALIN OSBORN ([id number]) [facility] ([facility]) [address] [place] [address] 83296 Chloride [Moles/Vol] 104 mmol/L Normal 98-107 [facility] Comment on above: Performed By: #### 2 4323-8 #### KALIN OSBORN ([id number]) [facility] ([facility]) [address] [place] [address]49[address] CO2 [Moles/Vol] 28 mmol/L Normal 21-32 [facility] Comment on above: Performed By: #### 2 4323-8 #### KALIN OSBORN ([id number]) [facility] ([facility]) [address] [place] [address] Creatinine [Mass/Vol] 0.53 mg/dL Normal 0.50-1.30 [facility] Comment on above: Performed By: #### 2 4323-8 #### KALIN OSBORN ([id number]) [facility] ([facility]) [address] [place] [address] Glomerular filtration rate >90 Normal >60 [facility] Comment on above: Result Comment: Calc ulations of estimated GFR are performed using the 2020 CKD-EPI Study Refit equation without the race variable for the IDMS-Traceable creatinine methods. https://jasn.asnjournals.org/content/early//ASN.24213 50917 Performed By: #### 2 4323-8 #### KALIN OSBORN ([id number]) [facility] ([facility]) [address] [place] [address]997 Glucose [Mass/Vol] 125 mg/dL High 74-99 [facility] Comment on above: Performed By: #### 2 4323-8 #### KALIN OSBORN ([id number]) [facility] ([facility]) [address] [place] [address] 85714 Phosphate [Mass/Vol] 3.8 mg/dL Normal 2.5-4.9 [facility] Comment on above: Performed By: #### 2 4323-8 #### KALIN OSBORN ([id number]) [facility] ([facility]) [address] [place] [address]606 Potassium [Moles/Vol] 4.0 mmol/L Normal 3.5-5.3 [facility] Comment on above: Performed By: #### 2 4323-8 #### KALIN OSBORN ([id number]) [facility] ([facility]) [address] [place] [address] 91864 Sodium [Moles/Vol] 140 mmol/L Normal 136-145 [facility] Comment on above: Performed By: #### 2 4323-8 #### KALIN OSBORN ([id number]) [facility] ([facility]) [address] [place] [address] 67007 Urea nitrogen [Mass/Vol] 26 mg/dL High 6-23 [facility] Comment on above: Performed By: #### 2 4323-8 #### KALIN OSBORN ([id number]) [facility] ([facility]) [address] [place] [address]16 XR ABDOMEN 1 VIEWon 05-19-20 XR ABDOMEN 1 VIEW Interpreted By: Oj Regan, STUDY: XR ABDOMEN 1 VIEW; 05/19/2025 11:35 am INDICATION: Signs/Symptoms:eval dobhoff placement. COMPARISON: 05/15/2025. ACCESSION NUMBER(S): [id number] ORDERING CLINICIAN: ELAINE MADRIGAL FINDINGS: Dobbhoff tube [...] Oj Regan 05/19/2025 12:02 PM Dictation workstation: [id number] [facility] XR Abdomen Single viewon 1. Dobbhoff tube overlies the 2nd duodenum. Contrast within nondistended colonic loops. Signed by: Oj Regan 05/19/2025 12:02 PM Dictation workstation: [id number] Interpreted By: Oj Regan, STUDY: XR ABDOMEN 1 VIEW; 05/19/2025 11:35 am INDICATION: Signs/Symptoms:eval dobhoff placement. COMPARISON: 05/15/2025. ACCESSION NUMBER(S): [id number] ORDERING CLINICIAN: ELAINE MADRIGAL FINDINGS: Dobbhoff tube overlies the 2nd duodenum. There is contrast in nondistended colonic loops. Limited evaluation of pneumoperitoneum on supine imaging, however no gross evidence of free air is noted. Right midlung atelectasis. Osseous structures demonstrate no acute bony changes. [facility] Nabil Regan MD - 05/19/2025 Interpreted By: Oj Regan, STUDY: XR ABDOMEN 1 VIEW; 05/19/2025 11:35 am INDICATION: Signs/Symptoms:eval dobhoff placement. COMPARISON: 05/15/2025. ACCESSION NUMBER(S): [id number] ORDERING CLINICIAN: ELAINE MADRIGAL FINDINGS: Dobbhoff tube [...] Oj Regan 05/19/2025 12:02 PM Dictation workstation: [id number] [facility] Work Phone: Radiology Study observation (narrative) [facility] Work Phone: XR Abdomen Single viewOrdere d By: Nabil Regan on 05-19-2025 [facility] Work Phone: RF videography Hypopharynx a nd Esophagus Views for swallowing function W speech and W barium contrast Julito 05-16-2025 Interpreted By: Antonio Mccollum and Nelson Camree STUDY: [place] MODIFIED BARIUM SWALLOW STUDY;; 05/14/2025 1:53 pm INDICATION: Signs/Symptoms:R/o aspiration, oropharyngeal dysphagia. COMPARISON: None. ACCESSION NUMBER(S): [id number] ORDERING CLINICIAN: LAY WALDROP TECHNIQUE: MBSS completed. Informed verbal consent obtained prior to completion of exam. Trials of thin, nectar thick, honey thick, puree, soft-solids, and regular solids given. WARD SERVICE SUPERVISOR: Shannon Santos Phone/Pager: [phone] SPEECH FINDINGS: Speech-Language Pathology Inpatient Modified Barium [...] tsp/straw, purees, and regular solids were given. 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 He [...] risk of aspiration w/ continued PO intake WARD SERVICE SUPERVISOR PLAN: Skilled WARD SERVICE SUPERVISOR Services: Skilled WARD SERVICE SUPERVISOR intervention for dysphagia is warranted. WARD SERVICE SUPERVISOR Frequency: pending GOC decisions made Discussed POC: [...] given on all accounts. Treatment Provided Today: WARD SERVICE SUPERVISOR provided extensive education and training to pt/pt [...] further evaluation by medical specialists, as applicable. WARD SERVICE SUPERVISOR Impressions with Severity Rating: Pt awake/alert, consistently cooperative/able to follow commands, and responded appropriately to conversation/questions by WARD SERVICE SUPERVISOR. Missing dentition noted. Severe oropharyngeal dysphagia. Prolonged [...] aspiration, oropharyngeal dysphagia. COMPARISON: None. ACCESSION NUMBER(S): [id number] ORDERING CLINICIAN: LAY WALDROP TECHNIQUE: MBSS completed. Informed verbal consent obtained prior to completion of exam. Trials of thin, nectar thick, honey thick, puree, soft-solids, and regular solids given. WARD SERVICE SUPERVISOR: Shannon Santos Phone/Pager: [phone] SPEECH FINDINGS: Speech-Language Pathology Inpatient Modified Barium [...] tsp/straw, purees, and regular solids were given. 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 He [...] risk of aspiration w/ continued PO intake WARD SERVICE SUPERVISOR PLAN: Skilled WARD SERVICE SUPERVISOR Services: Skilled WARD SERVICE SUPERVISOR intervention for dysphagia is warranted. WARD SERVICE SUPERVISOR Frequency: pending GOC decisions made Discussed POC: [...] given on all accounts. Treatment Provided Today: WARD SERVICE SUPERVISOR provided extensive education and training to pt/pt [...] further evaluation by medical specialists, as applicable. WARD SERVICE SUPERVISOR Impressions with Severity Rating: Pt awake/alert, consistently cooperative/able to follow commands, and responded appropriately to conversation/questions by WARD SERVICE SUPERVISOR. Missing dentition noted. Severe oropharyngeal dysphagia. Prolonged [...] in significant mike (more content not included)... [facility] Work Phone: RF videography Hypopharynx a nd Esophagus Views for swallowing function W speech and W barium contrast POOrdered By: Antonio Lane on 05-16-2025 [facility] Work Phone: XR Abdomen Single viewon 1. Dobbhoff tube wit h the tip projecting over the expected position of the proximal duodenum. 2. Nonobstructive bowel-gas pattern. 3. Linear opacity in the right mid/lower lung zone, likely atelectatic change. I personally reviewed the images/study and I agree with the findings as stated by resident Freedom Luna. This study was interpreted at [place], [place]. MACRO: None Signed by: Michelle Blackwell 05/16/2025 6:04 AM Dictation workstation: [id number] [facility] Interpreted By: Michelle Braga and Ritchie Brandon STUDY: XR ABDOMEN 1 VIEW; 05/15/2025 5:16 pm INDICATION: Signs/Symptoms:Confirm DHT placement. COMPARISON: CT chest abdomen pelvis 05/10/2025. ACCESSION NUMBER(S): [id number] ORDERING CLINICIAN: LAY WALDROP FINDINGS: Dobbhoff tube [...] demonstrate no acute bony changes. [facility] Michelle Hodges MD - 05/16/2025 Interpreted By: Michelle Hodges and Ritchie Brandon STUDY: XR ABDOMEN 1 VIEW; 05/15/2025 5:16 pm INDICATION: Signs/Symptoms:Confirm DHT placement. COMPARISON: CT chest abdomen pelvis 05/10/2025. ACCESSION NUMBER(S): [id number] ORDERING CLINICIAN: LAY WALDROP FINDINGS: Dobbhoff tube [...] Freedom Luna. This study was interpreted at [place], [place]. MACRO: None Signed by: Michelle Blackwell 05/16/2025 6:04 AM Dictation workstation: [id number] [facility] Work Phone: XR Abdomen Single viewOrdere d By: Michelle Blackwell on 05-16-2025 [facility] Work Phone: Glucose Test strip manual (B ld) [Mass/Vol]on 05-15-2025 Glucose [Mass/Vol] 127 mg/dL High 74 - 99 mg/dL [facility] Interpretation and review of laboratory results Abnormal [facility] Glucose [Mass/Vol] 127 mg/dL High 74-99 [facility] Comment on above: Performed By: #### 5 7021-8 #### GAGNON IRENA ([id number]) [facility] ([facility]) [facility] [place] [address] XR ABDOMEN 1 VIEWon 05-15-20 XR ABDOMEN 1 VIEW Interpreted By: Michelle Braga and Ritchie Brandon STUDY: XR ABDOMEN 1 VIEW; 05/15/2025 5:16 pm INDICATION: Signs/Symptoms:Confirm DHT placement. COMPARISON: CT chest abdomen pelvis 05/10/2025. ACCESSION NUMBER(S): [id number] ORDERING CLINICIAN: LAY WALDROP FINDINGS: Dobbhoff tube [...] Freedom Luna. This study was interpreted at [place], [place]. MACRO: None Signed by: Michelle Blackwell 05/16/2025 6:04 AM Dictation workstation: [id number] Normal [facility] Comment on above: Order Comment: RN to release order via task on Brain when patient is ready for x-ray confirmation of feeding tube placement. XR Abdomen Single viewon Radiology Study observation (narrative) [facility] Work Phone: CBC panel Auto (Bld)on 05-14 Erythrocyte distribution width (RBC) [Ratio] 12.4 % 11.5 - 14.5 % [facility] Hematocrit (Bld) [Volume fraction] 35.5 % Low 41.0 - 52.0 % [facility] Hemoglobin (Bld) [Mass/Vol] 11.3 g/dL Low 13.5 - 17.5 g/dL [facility] Interpretation and review of laboratory results Abnormal [facility] MCH (RBC) [Entitic mass] 33.6 pg 26.0 - 34.0 pg [facility] MCHC (RBC) [Mass/Vol] 31.8 g/dL Low 32.0 - 36.0 g/dL [facility] MCV (RBC) [Entitic vol] 106 fL High 80 - 100 fL [facility] Nucleated RBC/100 WBC (Bld) [Ratio] 0.0 % [facility] Platelets (Bld) [#/Vol] 175 10*3/uL [facility] RBC (Bld) [#/Vol] 3.36 10*6/uL Low [facility] WBC (Bld) [#/Vol] 10.0 10*3/uL [facility] Erythrocyte distribution width (RBC) [Ratio] 12.4 % Normal 11.5-14.5 [facility] Comment on above: Performed By: #### 5 7021-8 #### KALIN OSBORN ([id number]) [facility] ([facility]) [address] [place] [address] 06192 Hematocrit (Bld) [Volume fraction] 35.5 % Low 41.0-52.0 [facility] Comment on above: Performed By: #### 5 7021-8 #### KALIN OSBORN ([id number]) [facility] ([facility]) [address] [place] [address] 86168 Hemoglobin (Bld) [Mass/Vol] 11.3 g/dL Low 13.5-17.5 [facility] Comment on above: Performed By: #### 5 7021-8 #### KALIN OSBORN ([id number]) [facility] ([facility]) [address] [place] [address] 94393 MCH (RBC) [Entitic mass] 33.6 pg Normal 26.0-34.0 [facility] Comment on above: Performed By: #### 5 7021-8 #### KALIN OSBORN ([id number]) [facility] ([facility]) [address] [place] [address] 44915 MCHC (RBC) [Mass/Vol] 31.8 g/dL Low 32.0-36.0 [facility] Comment on above: Performed By: #### 5 7021-8 #### KALIN OSBORN ([id number]) [facility] ([facility]) [address] [place] [address] 77934 MCV (RBC) [Entitic vol] 106 fL High 80-100 [facility] Comment on above: Performed By: #### 5 7021-8 #### KALIN OSBORN ([id number]) [facility] ([facility]) [address] [place], [place] [address] Nucleated RBC/100 WBC (Bld) [Ratio] 0.0 /100 WBCs Normal 0.0-0.0 [facility] Comment on above: Performed By: #### 5 7021-8 #### KALIN OSBORN ([id number]) [facility] ([facility]) [address] [place] [address] 60321 Platelets (Bld) [#/Vol] 175 x10*3/uL Normal 150-450 [facility] Comment on above: Performed By: #### 5 7021-8 #### KALIN OSBORN ([id number]) [facility] ([facility]) [address] [place] [address] 22355 RBC (Bld) [#/Vol] 3.36 x10*6/uL Low 4.50-5.90 [facility] Comment on above: Performed By: #### 5 7021-8 #### KALIN OSBORN ([id number]) [facility] ([facility]) [address] [place] [address] 59435 WBC (Bld) [#/Vol] 10.0 x10*3/uL Normal 4.4-11.3 [facility] Comment on above: Performed By: #### 5 7021-8 #### KALIN OSBORN ([id number]) [facility] ([facility]) [address] [place] [address] 56537 FL MODIFIED BARIUM SWALLOW S Elyssa 05-14-2025 FL MODIFIED BARIUM SWALLOW STUDY Interpreted By: Antonio Bullock and Nelson Camree STUDY: FL MODIFIED BARIUM SWALLOW STUDY;; 05/14/2025 1:53 pm INDICATION: Signs/Symptoms:R/o aspiration, oropharyngeal dysphagia. COMPARISON: None. ACCESSION NUMBER(S): [id number] ORDERING CLINICIAN: LAY WALDROP TECHNIQUE: MBSS completed. Informed verbal consent obtained prior to completion of exam. Trials of thin, nectar thick, honey thick, puree, soft-solids, and regular solids given. WARD SERVICE SUPERVISOR: Shannon Santos Phone/Pager: [phone] SPEECH FINDINGS: Speech-Language Pathology Inpatient Modified Barium [...] tsp/straw, purees, and regular solids were given. 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 WARD SERVICE SUPERVISOR Frequency: pending GOC decisions made Discussed POC: [...] given on all accounts. Treatment Provided Today: WARD SERVICE SUPERVISOR provided extensive education and training to pt/pt [...] further evaluation by medical specialists, as applicable. WARD SERVICE SUPERVISOR Impressions with Severity Rating: Pt awake/alert, consistently cooperative/able to follow commands, and responded appropriately to conversation/questions by WARD SERVICE SUPERVISOR. Missing dentition noted. Severe oropharyngeal dysphagia. Prolonged [...] per bolu (more content not included)... Normal [facility] RF videography Hypopharynx a nd Esophagus Views for swallowing function W speech and W barium contrast Julito 05-14-2025 Radiology Study observation (narrative) [facility] Work Phone: WARD SERVICE SUPERVISOR Modified Barium Swallow Evaluationon 05-14-2025 FLAVIA Humphrey [...] tsp/straw, purees, and regular solids were given. 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 WARD SERVICE SUPERVISOR Frequency: pending GOC decisions made Discussed POC: [...] given on all accounts. Treatment Provided Today: WARD SERVICE SUPERVISOR provided extensive education and training to pt/pt [...] further evaluation by medical specialists, as applicable. WARD SERVICE SUPERVISOR Impressions with Severity Rating: Pt awake/alert, consistently cooperative/able to follow commands, and responded appropriately to conversation/questions by WARD SERVICE SUPERVISOR. Missing dentition noted. Severe oropharyngeal dysphagia. Prolonged [...] closure; however, eventual (more content not included)... [facility] Work Phone: CBC panel Auto (Bld)on 05-13 Erythrocyte distribution width (RBC) [Ratio] 12.4 % 11.5 - 14.5 % [facility] Hematocrit (Bld) [Volume fraction] 35.0 % Low 41.0 - 52.0 % [facility] Hemoglobin (Bld) [Mass/Vol] 10.8 g/dL Low 13.5 - 17.5 g/dL [facility] Interpretation and review of laboratory results Abnormal [facility] MCH (RBC) [Entitic mass] 33.1 pg 26.0 - 34.0 pg [facility] MCHC (RBC) [Mass/Vol] 30.9 g/dL Low 32.0 - 36.0 g/dL [facility] MCV (RBC) [Entitic vol] 107 fL High 80 - 100 fL [facility] Nucleated RBC/100 WBC (Bld) [Ratio] 0.0 % [facility] Platelets (Bld) [#/Vol] 151 10*3/uL [facility] RBC (Bld) [#/Vol] 3.26 10*6/uL Low [facility] WBC (Bld) [#/Vol] 12.4 10*3/uL High [facility] Erythrocyte distribution width (RBC) [Ratio] 12.4 % Normal 11.5-14.5 [facility] Comment on above: Performed By: #### 5 7021-8 #### KALIN OSBORN ([id number]) [facility] ([facility]) [address] [place] [address] 01261 Hematocrit (Bld) [Volume fraction] 35.0 % Low 41.0-52.0 [facility] Comment on above: Performed By: #### 5 7021-8 #### KALIN OSBORN ([id number]) [facility] ([facility]) [address] [place] [address] 09753 Hemoglobin (Bld) [Mass/Vol] 10.8 g/dL Low 13.5-17.5 [facility] Comment on above: Performed By: #### 5 7021-8 #### KALIN OSBORN ([id number]) [facility] ([facility]) [address] [place] [address] 31668 MCH (RBC) [Entitic mass] 33.1 pg Normal 26.0-34.0 [facility] Comment on above: Performed By: #### 5 7021-8 #### KALIN OSBORN ([id number]) [facility] ([facility]) [address] [place] [address] 85281 MCHC (RBC) [Mass/Vol] 30.9 g/dL Low 32.0-36.0 [facility] Comment on above: Performed By: #### 5 7021-8 #### KALIN OSBORN ([id number]) [facility] ([facility]) [address] [place] [address] 64410 MCV (RBC) [Entitic vol] 107 fL High 80-100 [facility] Comment on above: Performed By: #### 5 7021-8 #### KALIN OSBORN ([id number]) [facility] ([facility]) [address] [place] [address] 16092 Nucleated RBC/100 WBC (Bld) [Ratio] 0.0 /100 WBCs Normal 0.0-0.0 [facility] Comment on above: Performed By: #### 5 7021-8 #### KALIN OSBORN ([id number]) [facility] ([facility]) [address] [place] [address] 47765 Platelets (Bld) [#/Vol] 151 x10*3/uL Normal 150-450 [facility] Comment on above: Performed By: #### 5 7021-8 #### KALIN OSBORN ([id number]) [facility] ([facility]) [address] [place] [address] 26185 RBC (Bld) [#/Vol] 3.26 x10*6/uL Low 4.50-5.90 [facility] Comment on above: Performed By: #### 7021-8 #### KALIN OSBORN ([id number]) [facility] ([facility]) [facility] [place] [address] WBC (Bld) [#/Vol] 12.4 x10*3/uL High 4.4-11.3 [facility] Comment on above: Performed By: #### 5 7021-8 #### KALIN OSBORN ([id number]) [facility] ([facility]) [facility] [place] [address] Magnesiumon 05-13-2025 Magnesium [Mass/Vol] 2.35 mg/dL 1.60 - 2.40 mg/dL [facility] Magnesium [Mass/Vol] 2.35 mg/dL Normal 1.60-2.40 [facility] Comment on above: Performed By: #### 5 7021-8 #### KALIN OSBORN ([id number]) [facility] ([facility]) [address] [place] [address] 89684 Magnesium [Mass/Vol]on 05-13 Interpretation and review of laboratory results Normal [facility] No Panel Informationon 05-13 [facility] Renal function 2000 panelon 05-13-2025 Albumin BCP dye [Mass/Vol] 3.2 g/dL Low 3.4 - 5.0 g/dL [facility] Anion gap [Moles/Vol] 13 mmol/L 10 - 2 0 mmol/L [facility] Calcium [Mass/Vol] 8.0 mg/dL Low 8.6 - 10. 6 mg/dL [facility] Chloride [Moles/Vol] 107 mmol/L 98 - 10 7 mmol/L [facility] CO2 [Moles/Vol] 24 mmol/L 21 - 32 mmol/L [facility] Creatinine [Mass/Vol] 0.62 mg/dL 0.50 - 1.30 mg/dL [facility] eGFR - PINF [facility] Comment on above: Calculations of leonides mated GFR are performed using the 2020 CKD-EPI Study Refit equation without the race variable for the IDMS-Traceable creatinine methods. https://jasn.asnjournals.org/content//ASN. 84246 Glucose [Mass/Vol] 90 mg/dL 74 - 99 mg/dL [facility] Interpretation and review of laboratory results Abnormal [facility] Phosphate [Mass/Vol] 3.0 mg/dL 2.5 - 4 .9 mg/dL [facility] Potassium [Moles/Vol] 4.2 mmol/L 3.5 - 5.3 mmol/L [facility] Sodium [Moles/Vol] 140 mmol/L 136 - 145 mmol/L [facility] Urea nitrogen [Mass/Vol] 22 mg/dL 6 - 23 mg/dL [facility] Albumin BCP dye [Mass/Vol] 3.2 g/dL Low 3.4-5.0 [facility] Comment on above: Performed By: #### 5 7021-8 #### KALIN OSBORN ([id number]) [facility] ([facility]) [address] [place] [address] 64021 Anion gap [Moles/Vol] 13 mmol/L Normal 10-20 [facility] Comment on above: Performed By: #### 5 7021-8 #### KALIN OSBORN ([id number]) [facility] ([facility]) [address] [place] [address] 14602 Calcium [Mass/Vol] 8.0 mg/dL Low 8.6-10.6 [facility] Comment on above: Performed By: #### 5 7021-8 #### KALIN OSBORN ([id number]) [facility] ([facility]) [address] [place] [address] 36174 Chloride [Moles/Vol] 107 mmol/L Normal 98-107 [facility] Comment on above: Performed By: #### 5 7021-8 #### KALIN OSBORN ([id number]) [facility] ([facility]) [address] [place] [address] 67292 CO2 [Moles/Vol] 24 mmol/L Normal 21-32 [facility] Comment on above: Performed By: #### 5 7021-8 #### KALIN OSBORN ([id number]) [facility] ([facility]) [address] [place] [address] 10663 Creatinine [Mass/Vol] 0.62 mg/dL Normal 0.50-1.30 [facility] Comment on above: Performed By: #### 5 7021-8 #### KALIN OSBORN ([id number]) [facility] ([facility]) [address] [place] [address] 42372 Glomerular filtration rate >90 Normal >60 [facility] Comment on above: Result Comment: Calc ulations of estimated GFR are performed using the 2020 CKD-EPI Study Refit equation without the race variable for the IDMS-Traceable creatinine methods. https://jasn.asnjournals.org/content//ASN.76180 75174 Performed By: #### 5 7021-8 #### KALIN OSBORN ([id number]) [facility] ([facility]) [address] [place] [address] 82087 Glucose [Mass/Vol] 90 mg/dL Normal 74-99 [facility] Comment on above: Performed By: #### 5 7021-8 #### KALIN OSBORN ([id number]) [facility] ([facility]) [address] [place] [address] 87261 Phosphate [Mass/Vol] 3.0 mg/dL Normal 2.5-4.9 [facility] Comment on above: Performed By: #### 5 7021-8 #### KALIN OSBORN ([id number]) [facility] ([facility]) [address] [place] [address] 77596 Potassium [Moles/Vol] 4.2 mmol/L Normal 3.5-5.3 [facility] Comment on above: Performed By: #### 5 7021-8 #### KALIN OSBORN ([id number]) [facility] ([facility]) [address] [place] [address] 97318 Sodium [Moles/Vol] 140 mmol/L Normal 136-145 [facility] Comment on above: Performed By: #### 5 7021-8 #### KALIN OSBORN ([id number]) [facility] ([facility]) [address] [place] [address] Urea nitrogen [Mass/Vol] 22 mg/dL Normal 6- [facility] Comment on above: Performed By: #### 5 7021-8 #### GAGNON IRENA ([id number]) [facility] ([facility]) [address] [place] [address] TRANSTHORACIC ECHO (TTE) COM PLETEon 05-13-2025 TRANSTHORACIC ECHO (TTE) [facility], [address] [place] [address] and TRANSTHORACIC ECHOCARDIOGRAM REPORT Patient Name: FAWN CAMERON Reading Physician: [id number] Noelle Roberts MD Study Date: 05/13/2025 Ordering Provider: [id number] LAY WALDROP MRN/PID: [id number] Fellow: Nurse: Date of /Age: 5 1935 Winemaker: Enmanuel sarmiento RD, RVT Gender assigned at Additional Staff: : Height: 167.64 cm Admit Date: 05/10/2025 Weight: 66.23 kg Admission Status: Inpatient - STAT BSA / BMI: 1.75 m2 / 23.57 kg/m2 Blood Pressure: 120/77 mmHg Department Location: [place] [address] Study Type: TRANSTHORACIC ECHO (TTE) COMPLETE Diagnosis/ICD: Syncope-R55 Indication: syncopal work-up CPT Code: Echo Complete w Full Doppler-[id number] Patient History: Pertinent History: HTN, HLD, TIA, [...] previous echocardiogram(s): Compared with study dated 07/31/2024, [facility], no significant changes from the report, [...] regurgitation. 6. Compared with study dated 07/31/2024, [facility], no significant changes from the report, [...] LA Area A2C: 12.1 cm2 [place] A4C: 4.4 cm [place] A2C: 4.8 cm RIGHT ATRIUM: Normal Ranges: [...] 67.70 cm/s (more content not included)... Normal [facility] US Heart TransthoracicOrdere d By: Noelle Roberts on 05-13-2025 Aortic Valve Area by Continuity of Peak Velocity 1.77 cm2 [facility] Work Phone: Aortic Valve Area by Continuity of VTI 1.69 cm2 [facility] Work Phone: AV mn grad 8 mmHg [facility] Work Phone: AV pk grad 15 mmHg [facility] Work Phone: AV pk neetu 1.92 m/s [facility] Work Phone: LA vol index A/L 18.7 ml/m2 [facility] Work Phone: LV A4C EF 70.4 [facility] Work Phone: LV EF 63 % [facility] Work Phone: LVIDd 4.70 cm [facility] Work Phone: LVOT diam 2.00 cm [facility] Work Phone: MV E/A ratio 0.73 [facility] Work Phone: RV free wall pk S' 12.60 cm/s [facility] Work Phone: RVSP 39 mmHg [facility] Work Phone: Tricuspid annular plane systolic excursion 2.2 cm [facility] Work Phone: [facility] Work Phone: US Heart Transthoracicon [facility], [address] [place] [address] and TRANSTHORACIC ECHOCARDIOGRAM REPORT Patient Name: FAWN Lee Physician: [id number] Noelle Roberts MD Study Date: 05/13/2025 Ordering Provider: [id number] LAY WALDROP MRN/PID: [id number] Fellow: Nurse: Date of /Age: 5 1935 Winemaker: Enmanuel sarmiento RDCS, RVT Gender assigned at M Additional Staff: : Height: 167.64 cm Admit Date: 05/10/2025 Weight: 66.23 kg Admission Status: Inpatient - STAT BSA / BMI: 1.75 m2 / 23.57 kg/m2 Blood Pressure: 120/77 mmHg Department Location: [place] [address] Study Type: TRANSTHORACIC ECHO (TTE) COMPLETE Diagnosis/ICD: Syncope-R55 Indication: syncopal work-up CPT Code: Echo Complete w Full Doppler-[id number] Patient History: Pertinent History: HTN, HLD, TIA, [...] previous echocardiogram(s): Compared with study dated 07/31/2024, [facility], no significant changes from the report, [...] regurgitation. 6. Compared with study dated 07/31/2024, [facility], no significant changes from the report, [...] LA Area A2C: (more content not included)... JANETO Noelle Roberts MD - 05/13/2025 [facility], [address] [place] [address] and TRANSTHORACIC ECHOCARDIOGRAM REPORT Patient Name: FAWN Lee Physician: [id number] Noelle Roberts MD Study Date: 05/13/2025 Ordering Provider: [id number] LAY WALDROP MRN/PID: [id number] Fellow: Nurse: Date of /Age: 5 1935 Winemaker: Enmanuel Cook years RDCS, RVT Gender assigned at M Additional Staff: : Height: 167.64 cm Admit Date: 05/10/2025 Weight: 66.23 kg Admission Status: Inpatient - STAT BSA / BMI: 1.75 m2 / 23.57 kg/m2 Blood Pressure: 120/77 mmHg Department Location: [place] [address] Study Type: TRANSTHORACIC ECHO (TTE) COMPLETE Diagnosis/ICD: Syncope-R55 Indication: syncopal work-up CPT Code: Echo Complete w Full Doppler-[id number] Patient History: Pertinent History: HTN, HLD, TIA, [...] previous echocardiogram(s): Compared with study dated 07/31/2024, [facility], no significant changes from the report, [...] regurgitation. 6. Compared with study dated 07/31/2024, [facility], no significant changes from the report, [...] LA Area A2C: 12.1 cm2 [place] A4C: 4.4 cm [place] A2C: 4.8 cm RIGHT ATRIUM: Normal Ranges: [...] 0.086 m/s ( (more content not included)... [facility] Work Phone: 25-hydroxyvitamin D3 [Mass/V ol]on 05-12-2025 Deficiency: < 20 ng/ ml Insufficiency: 20-29 ng/ml Sufficiency: 30-100 ng/ml This assay accurately quantifies the sum of Vitamin D3, 25-Hydroxy and Vitamin D2,25-Hydroxy. [facility] Calcidiolon 05-12-2025 25-hydroxyvitamin D3 [Mass/Vol] 18 ng/mL Low 30-100 [facility] Comment on above: Order Comment: Defic iency: < 20 ng/mlInsufficiency: 20-29 ng/mlSufficiency: 30-100 ng/mlThis assay accurately quantifies the sum of Vitamin D3, 25-Hydroxy and Vitamin D2,25-Hydroxy. Performed By: #### 5 7021-8 #### KALIN OSBORN ([id number]) [facility] ([facility]) [address] [place] [address] 60625 Cobalamin (Vitamin B12) [Mas s/Vol]on 05-12-2025 Interpretation and review of laboratory results Normal [facility] Cobalaminson 05-12-2025 Cobalamin (Vitamin B12) [Mass/Vol] 283 pg/mL Normal 211-911 [facility] Comment on above: Performed By: #### 2 4323-8 #### KALIN OSBORN ([id number]) [facility] ([facility]) [address] [place] [address] 70651 Free T4 [Mass/Vol]on 025 Interpretation and review of laboratory results Normal [facility] Thyroxine Free testi ng is performed using different testing methodology at [facility] than at other [facility]. Direct result comparisons should only be made within the same method. [facility] Magnesiumon 05-12-2025 Magnesium [Mass/Vol] 1.75 mg/dL 1.60 - 2.40 mg/dL [facility] Magnesium [Mass/Vol] 1.75 mg/dL Normal 1.60-2.40 [facility] Comment on above: Performed By: #### 2 4323-8 #### GAGNON IRENA ([id number]) [facility] ([facility]) [address] [place] [address] Magnesium [Mass/Vol]on 05-12 Interpretation and review of laboratory results Normal [facility] No Panel Informationon 05-12 Interpretation and review of laboratory results Abnormal [facility] Renal function 2000 panelon 05-12-2025 Albumin BCP dye [Mass/Vol] 3.1 g/dL Low 3.4 - 5.0 g/dL [facility] Anion gap [Moles/Vol] 12 mmol/L 10 - 2 0 mmol/L [facility] Calcium [Mass/Vol] 7.2 mg/dL Low 8.6 - 10. 6 mg/dL [facility] Chloride [Moles/Vol] 109 mmol/L High 98 - 10 7 mmol/L [facility] CO2 [Moles/Vol] 22 mmol/L 21 - 32 mmol/L [facility] Creatinine [Mass/Vol] 0.66 mg/dL 0.50 - 1.30 mg/dL [facility] GFR/1.73 sq M.predicted among non-blacks MDRD (S/P/Bld) [Vol rate/Area] 90 mL/min/{1.73_m2} - PINF [facility] Comment on above: Calculations of leonides mated GFR are performed using the 2020 CKD-EPI Study Refit equation without the race variable for the IDMS-Traceable creatinine methods. https://jasn.asnjournals.org/content//ASN.61746 26567 Glucose [Mass/Vol] 81 mg/dL 74 - 99 mg/dL [facility] Interpretation and review of laboratory results Abnormal [facility] Phosphate [Mass/Vol] 3.0 mg/dL 2.5 - 4 .9 mg/dL [facility] Potassium [Moles/Vol] 3.5 mmol/L 3.5 - 5.3 mmol/L [facility] Sodium [Moles/Vol] 139 mmol/L 136 - 145 mmol/L [facility] Urea nitrogen [Mass/Vol] 18 mg/dL 6 - 23 mg/dL [facility] Albumin BCP dye [Mass/Vol] 3.1 g/dL Low 3.4-5.0 [facility] Comment on above: Performed By: #### 2 4323-8 #### KALIN OSBORN ([id number]) [facility] ([facility]) [address] [place] [address] 32821 Anion gap [Moles/Vol] 12 mmol/L Normal 10-20 [facility] Comment on above: Performed By: #### 2 3-8 #### KALIN OSBORN ([id number]) [facility] ([facility]) [address] [place] [address] 19611 Calcium [Mass/Vol] 7.2 mg/dL Low 8.6-10.6 [facility] Comment on above: Performed By: #### 2 4323-8 #### KALIN OSBORN ([id number]) [facility] ([facility]) [address] [place] [address] Chloride [Moles/Vol] 109 mmol/L High 98-107 [facility] Comment on above: Performed By: #### 2 4323-8 #### KALIN OSBORN ([id number]) [facility] ([facility]) [facility] [place] [address] CO2 [Moles/Vol] 22 mmol/L Normal 21-32 [facility] Comment on above: Performed By: #### 2 4323-8 #### KALIN OSBORN ([id number]) [facility] ([facility]) [address] [place] [address] 37927 Creatinine [Mass/Vol] 0.66 mg/dL Normal 0.50-1.30 [facility] Comment on above: Performed By: #### 2 4323-8 #### KALIN OSBORN ([id number]) [facility] ([facility]) [address] [place] [id number] Glomerular filtration rate/1.73 sq M.predicted 90 mL/min/1.73m*2 Normal >60 [facility] Comment on above: Result Comment: Calc ulations of estimated GFR are performed using the 2020 CKD-EPI Study Refit equation without the race variable for the IDMS-Traceable creatinine methods. https://jasn.asnjournals.org/content//ASN.64794 01765 Performed By: #### 2 432-8 #### KALIN OSBORN ([id number]) [facility] ([facility]) [address] [place] [address] 17141 Glucose [Mass/Vol] 81 mg/dL Normal 74-99 [facility] Comment on above: Performed By: #### 2 4322-8 #### KALIN OSBORN ([id number]) [facility] ([facility]) [address] [place] [address] 64530 Phosphate [Mass/Vol] 3.0 mg/dL Normal 2.5-4.9 [facility] Comment on above: Performed By: #### 2 4322-8 #### KALIN OSBORN ([id number]) [facility] ([facility]) [address] [place] [address] 72601 Potassium [Moles/Vol] 3.5 mmol/L Normal 3.5-5.3 [facility] Comment on above: Performed By: #### 2 4323-8 #### KALIN OSBORN ([id number]) [facility] ([facility]) [address] [place] [address] 92253 Sodium [Moles/Vol] 139 mmol/L Normal 136-145 [facility] Comment on above: Performed By: #### 2 4323-8 #### KALIN OSBORN ([id number]) [facility] ([facility]) [address] [place] [address] Urea nitrogen [Mass/Vol] 18 mg/dL Normal 6-23 [facility] Comment on above: Performed By: #### 2 4323-8 #### KALIN OSBORN ([id number]) [facility] ([facility]) [address] [place] [address] TSH WITH REFLEX TO FREE T4 I F ABNORMALon 05-12-2025 TSH Qn 4.88 m[IU]/L High 0.44-3.98 [facility] Comment on above: Order Comment: TSH t esting is performed using different testing methodology at [facility] than at other [facility]. Direct result comparisons should only be made within the same method. Performed By: #### 2 4323-8 #### KALIN OSBORN ([id number]) [facility] ([facility]) [address] [place] [address] TSH with reflex to Free T4 i f abnormalon 05-12-2025 TSH Qn 4.88 m[IU]/L High [facility] TSH testing is performed using different testing methodology at [facility] than at other [facility]. Direct result comparisons should only be made within the same method. [facility] Thyroxine, Freeon 05-12-2025 Free T4 [Mass/Vol] 1.15 ng/dL 0.78 - 1. 48 ng/dL [facility] Thyroxine.freeon 05-12-2025 Free T4 [Mass/Vol] 1.15 ng/dL Normal 0.78-1.48 [facility] Comment on above: Order Comment: Thyro xine Free testing is performed using different testing methodology at [facility] than at other [facility]. Direct result comparisons should only be made within the same method. Performed By: #### 5 7021-8 #### KALIN OSBORN ([id number]) [facility] ([facility]) [address] [place], [place] [address] Vitamin B12on 05-12-2025 Cobalamin (Vitamin B12) [Mass/Vol] 283 pg/mL 211 - 911 pg/mL [facility] Vitamin D 25-Hydroxy,Total ( for eval of Vitamin D levels)on 05-12-2025 25-hydroxyvitamin D3 [Mass/Vol] 18 ng/mL Low 30 - 100 ng/mL [facility] Basic metabolic 2000 panelon 05-11-2025 Anion gap [Moles/Vol] 9 mmol/L Low 10 - 2 0 mmol/L [facility] Calcium [Mass/Vol] 8.5 mg/dL Low 8.6 - 10. 6 mg/dL [facility] Chloride [Moles/Vol] 104 mmol/L 98 - 10 7 mmol/L [facility] CO2 [Moles/Vol] 30 mmol/L 21 - 32 mmol/L [facility] Creatinine [Mass/Vol] 0.89 mg/dL 0.50 - 1.30 mg/dL [facility] GFR/1.73 sq M.predicted among non-blacks MDRD (S/P/Bld) [Vol rate/Area] 82 mL/min/{1.73_m2} - PINF [facility] Comment on above: Calculations of leonides mated GFR are performed using the 2020 CKD-EPI Study Refit equation without the race variable for the IDMS-Traceable creatinine methods. https://jasn.asnjournals.org/content/early//ASN.44610 46746 Glucose [Mass/Vol] 124 mg/dL High 74 - 99 mg/dL [facility] Interpretation and review of laboratory results Abnormal [facility] Potassium [Moles/Vol] 3.6 mmol/L 3.5 - 5.3 mmol/L [facility] Sodium [Moles/Vol] 139 mmol/L 136 - 145 mmol/L [facility] Urea nitrogen [Mass/Vol] 21 mg/dL 6 - 23 mg/dL [facility] Anion gap [Moles/Vol] 9 mmol/L Low 10-20 [facility] Comment on above: Performed By: #### 2 4323-8 #### GAGNON IRENA ([id number]) [facility] ([facility]) [address] [place] [address] Calcium [Mass/Vol] 8.5 mg/dL Low 8.6-10.6 [facility] Comment on above: Performed By: #### 2 4323-8 #### KALIN OSBORN ([id number]) [facility] ([facility]) [address] [place] [address] Chloride [Moles/Vol] 104 mmol/L Normal 98-107 [facility] Comment on above: Performed By: #### 2 4323-8 #### KALIN OSBORN ([id number]) [facility] ([facility]) [facility] [place] [address] CO2 [Moles/Vol] 30 mmol/L Normal 21-32 [facility] Comment on above: Performed By: #### 2 4323-8 #### KALIN OSBORN ([id number]) [facility] ([facility]) [address] [place] [address] 87250 Creatinine [Mass/Vol] 0.89 mg/dL Normal 0.50-1.30 [facility] Comment on above: Performed By: #### 2 4323-8 #### KALIN OSBORN ([id number]) [facility] ([facility]) [address] [place] [address] 84401 Glomerular filtration rate/1.73 sq M.predicted 82 mL/min/1.73m*2 Normal >60 [facility] Comment on above: Result Comment: Calc ulations of estimated GFR are performed using the 2020 CKD-EPI Study Refit equation without the race variable for the IDMS-Traceable creatinine methods. https://jasn.asnjournals.org/content//ASN.31527 82780 Performed By: #### 2 4323-8 #### KALIN OSBORN ([id number]) [facility] ([facility]) [facility] [place] [address] Glucose [Mass/Vol] 124 mg/dL High 74-99 [facility] Comment on above: Performed By: #### 2 4323-8 #### KALIN OSBORN ([id number]) [facility] ([facility]) [facility] [place] [address] Potassium [Moles/Vol] 3.6 mmol/L Normal 3.5-5.3 [facility] Comment on above: Performed By: #### 2 4323-8 #### KALIN OSBORN ([id number]) [facility] ([facility]) [address] [place] [address] Sodium [Moles/Vol] 139 mmol/L Normal 136-145 [facility] Comment on above: Performed By: #### 2 4323-8 #### KALIN OSBORN ([id number]) [facility] ([facility]) [address] [place] [address] 20571 Urea nitrogen [Mass/Vol] 21 mg/dL Normal 6-23 [facility] Comment on above: Performed By: #### 2 4323-8 #### KALIN OSBORN ([id number]) [facility] ([facility]) [address] [place] [address] CBC panel Auto (Bld)on 05-11 Erythrocyte distribution width (RBC) [Ratio] 12.6 % 11.5 - 14.5 % [facility] Hematocrit (Bld) [Volume fraction] 32.9 % Low 41.0 - 52.0 % [facility] Hemoglobin (Bld) [Mass/Vol] 11.4 g/dL Low 13.5 - 17.5 g/dL [facility] Interpretation and review of laboratory results Abnormal [facility] MCH (RBC) [Entitic mass] 33.5 pg 26.0 - 34.0 pg [facility] MCHC (RBC) [Mass/Vol] 34.7 g/dL 32.0 - 36.0 g/dL [facility] MCV (RBC) [Entitic vol] 97 fL 80 - 100 fL [facility] Nucleated RBC/100 WBC (Bld) [Ratio] 0.0 % [facility] Platelets (Bld) [#/Vol] 204 10*3/uL [facility] RBC (Bld) [#/Vol] 3.40 10*6/uL Low [facility] WBC (Bld) [#/Vol] 10.7 10*3/uL [facility] Erythrocyte distribution width (RBC) [Ratio] 12.6 % Normal 11.5-14.5 [facility] Comment on above: Performed By: #### 2 4323-8 #### KALIN OSBORN ([id number]) [facility] ([facility]) [address] [place] [address] 98743 Hematocrit (Bld) [Volume fraction] 32.9 % Low 41.0-52.0 [facility] Comment on above: Performed By: #### 2 3-8 #### KALIN OSBORN ([id number]) [facility] ([facility]) [address] [place] [address] 76965 Hemoglobin (Bld) [Mass/Vol] 11.4 g/dL Low 13.5-17.5 [facility] Comment on above: Performed By: #### 2 4322-8 #### KALIN OSBORN ([id number]) [facility] ([facility]) [address] [place] [address] 53253 MCH (RBC) [Entitic mass] 33.5 pg Normal 26.0-34.0 [facility] Comment on above: Performed By: #### 2 4322-8 #### KALIN OSBORN ([id number]) [facility] ([facility]) [address] [place] [address] 04238 MCHC (RBC) [Mass/Vol] 34.7 g/dL Normal 32.0-36.0 [facility] Comment on above: Performed By: #### 2 432-8 #### KALIN OSBORN ([id number]) [facility] ([facility]) [address] [place] [address] 69764 MCV (RBC) [Entitic vol] 97 fL Normal 80-100 [facility] Comment on above: Performed By: #### 2 4323-8 #### KALIN OSBORN ([id number]) [facility] ([facility]) [address] [place] [address] 34764 Nucleated RBC/100 WBC (Bld) [Ratio] 0.0 /100 WBCs Normal 0.0-0.0 [facility] Comment on above: Performed By: #### 2 432-8 #### KALIN OSBORN ([id number]) [facility] ([facility]) [address] [place] [address] Platelets (Bld) [#/Vol] 204 x10*3/uL Normal 150-450 [facility] Comment on above: Performed By: #### 2 4323-8 #### GAGNON IRENA ([id number]) [facility] ([facility]) [address] [place] [address] 73706 RBC (Bld) [#/Vol] 3.40 x10*6/uL Low 4.50-5.90 [facility] Comment on above: Performed By: #### 2 4323-8 #### GAGNON IRENA ([id number]) [facility] ([facility]) [address] [place], [place] [address] WBC (Bld) [#/Vol] 10.7 x10*3/uL Normal 4.4-11.3 [facility] Comment on above: Performed By: #### 2 4323-8 #### KALIN OSBORN ([id number]) [facility] ([facility]) [address] [place] [address] CT Head WO contraston 2024 Redemonstration of [...] MD (PGY-3). This study was interpreted at [facility], [place], [place]. MACRO: None Signed by: Wanda Montalvo 05/11/2025 12:03 AM Dictation workstation: [id number] MMODAL Interpreted By: Wanda Montalvo, and Spenser Jenkins STUDY: CT HEAD WO IV CONTRAST; 05/10/2025 11:27 pm INDICATION: Signs/Symptoms:Trauma, intracranial bleeding. Stability scan. COMPARISON: CT head without IV contrast 05/10/2025 3:03 p.m.. ACCESSION NUMBER(S): [id number] ORDERING CLINICIAN: CARRI GREER TECHNIQUE: Noncontrast axial [...] IV contrast 05/10/2025 3:03 p.m.. ACCESSION NUMBER(S): [id number] ORDERING CLINICIAN: CARRI GREER TECHNIQUE: Noncontrast axial [...] MD (PGY-3). This study was interpreted at [place], [place]. MACRO: None Signed by: Wanda Montalvo 05/11/2025 12:03 AM Dictation workstation: [id number] [facility] Work Phone: CT Head WO contrastOrdered B y: Wanda Montalvo on 05-11-2025 [facility] Work Phone: ECG 12 leadOrdered By: Lew Garcia on 05-11-2025 Atrial Rate 72 BPM [facility] Work Phone: P [place] 31 degrees [facility] Work Phone: P Offset 178 ms [facility] Work Phone: P Onset 115 ms [facility] Work Phone: MO Interval 190 ms [facility] Work Phone: Q Onset 210 ms [facility] Work Phone: QRS Count 12 beats [facility] Work Phone: QRS Duration 104 ms [facility] Work Phone: QT Interval 394 ms [facility] Work Phone: QTC Calculation(Bazett) 431 [facility] Work Phone: QTC Fredericia 418 [facility] Work Phone: R [place] -15 degrees [facility] Work Phone: T [place] 44 degrees [facility] Work Phone: T Offset 407 ms [facility] Work Phone: Ventricular Rate 72 BPM [facility] Work Phone: [facility] Work Phone: ECG 12 leadon 05-11-2025 Normal sinus rhythm Normal ECG When compared with ECG of 10-MAY-2025 13:54, No significant change was found See ED provider note for full interpretation and clinical correlation Confirmed by Yolanda Garcia ([id number]) on 05/11/2025 3:47:31 AM Yolanda Waite PA -C - 05/11/2025 Normal sinus rhythm Normal ECG When compared with ECG of 10-MAY-2025 13:54, No significant change was found See ED provider note for full interpretation and clinical correlation Confirmed by Yolanda Garcia ([id number]) on 05/11/2025 3:47:31 AM [facility] Work Phone: ECG 12-LEADon 05-11-2025 ECG 12-LEAD Ventricular Rate 72 Atrial Rate 72 P-R Interval 190 QRS Duration 104 Q-T Interval 394 QTC Calculation(Bazett) 431 P [place] 31 R [place] -15 T [place] 44 QRS Count 12 Q Onset 210 P Onset 115 P Offset 178 T Offset 407 QTC Fredericia 418 Diagnosis Normal sinus rhythm Normal ECG When compared with ECG of 10-MAY-2025 13:54, No significant change was found See ED provider note for full interpretation and clinical correlation Confirmed by Yolanda Garcia ([id number]) on 05/11/2025 3:47:31 AM Normal [facility] Magnesiumon 05-11-2025 Magnesium [Mass/Vol] 1.86 mg/dL 1.60 - 2.40 mg/dL [facility] Magnesium [Mass/Vol] 1.86 mg/dL Normal 1.60-2.40 [facility] Comment on above: Performed By: #### 2 4323-8 #### GAGNON IRENA ([id number]) [facility] ([facility]) [address] [place] [address] Magnesium [Mass/Vol]on 05-11 Interpretation and review of laboratory results Normal [facility] Natriuretic peptide B [Mass/ Vol]on 05-11-2025 Interpretation and review of laboratory results Normal [facility] Natriuretic peptide B (Bld) [Mass/Vol] 56 pg/mL 0 - 99 pg/mL [facility] <100 pg/mL - Heart failure [...] contact their local laboratory for further information. [facility] Natriuretic peptide B (Bld) [Mass/Vol] 56 pg/mL Normal 0-99 [facility] Comment on above: Order Comment: <100 pg/mL - Heart failure [id number] pg/mL - Intermediate probability of acute heart [...] By: #### 2 4323-8 #### GAGNON IRENA ([id number]) [facility] ([facility]) [address] [place] [address] XR CHEST 1 VIEWon 05-11-2025 XR CHEST 1 VIEW STUDY: Chest Radiograph; 05/11/2025 1:13AM INDICATION: Evaluation for surgery trauma. COMPARISON: 09/23/2022 XR chest ACCESSION NUMBER(S): [id number] ORDERING CLINICIAN: SANTIAGO MENENDEZ TECHNIQUE: Frontal chest was obtained at 01:12 hours. FINDINGS: CARDIOMEDIASTINAL SILHOUETTE: Cardiomediastinal silhouette is normal in size and configuration. Mural calcifications through the aortic arch. LUNGS: No regions of consolidation. No regions of atelectasis. ABDOMEN: No remarkable upper abdominal findings. BONES: No acute osseous changes. IMPRESSION: No acute pleural or parenchymal disease.. Signed by Gracie Baltazar MD [facility] XR Chest Single viewon 05-11 No acute pleural or parenchymal disease.. Signed by Gracie Baltazar MD TELERADIOLOGY STUDY: Chest Radiograph; 05/11/2025 1:13AM INDICATION: Evaluation for surgery trauma. COMPARISON: 09/23/2022 XR chest ACCESSION NUMBER(S): [id number] ORDERING CLINICIAN: SANTIAGO MENENDEZ TECHNIQUE: Frontal chest [...] trauma. COMPARISON: 09/23/2022 XR chest ACCESSION NUMBER(S): [id number] ORDERING CLINICIAN: SANTIAGO MENENDEZ TECHNIQUE: Frontal chest was obtained at 01:12 hours. FINDINGS: CARDIOMEDIASTINAL SILHOUETTE: Cardiomediastinal silhouette is normal in size and configuration. Mural calcifications through the aortic arch. LUNGS: No regions of consolidation. No regions of atelectasis. ABDOMEN: No remarkable upper abdominal findings. BONES: No acute osseous changes. IMPRESSION: No acute pleural or parenchymal disease.. Signed by rGacie Baltazar MD [facility] Work Phone: Radiology Study observation (narrative) [facility] Work Phone: XR Chest Single viewOrdered By: Gracie Baltazar on 05-11-2025 [facility] Work Phone: XR PELVIS WITH INLET OUTLET JUDET VIEWSon 05-11-2025 XR PELVIS WITH INLET OUTLET JUDET VIEWS Interpreted By: Wanda Montalvo, Jake Jenkins STUDY: XR PELVIS WITH INLET OUTLET JUDET VIEWS; ; 05/11/2025 4:18 am INDICATION: Signs/Symptoms:eval. COMPARISON: CT chest abdomen pelvis 05/10/2025. ACCESSION NUMBER(S): [id number] ORDERING CLINICIAN: LEONARDO BERGER FINDINGS: Five view [...] MD (PGY-3). This study was interpreted at [place], [place]. MACRO: None Signed by: Wanda Montalvo 05/11/2025 5:01 AM Dictation workstation: [id number] Normal [facility] XR Pelvis 3 Viewson 05-11-20 Acute [...] MD (PGY-3). This study was interpreted at [place], [place]. MACRO: None Signed by: Wanda Montalvo 05/11/2025 5:01 AM Dictation workstation: [id number] MMODAL Interpreted By: Wanda Montalvo and Omar Mahmoud STUDY: XR PELVIS WITH INLET OUTLET JUDET VIEWS; ; 05/11/2025 4:18 am INDICATION: Signs/Symptoms:eval. COMPARISON: CT chest abdomen pelvis 05/10/2025. ACCESSION NUMBER(S): [id number] ORDERING CLINICIAN: LEONARDO BERGER FINDINGS: Five view [...] CT chest abdomen pelvis 05/10/2025. ACCESSION NUMBER(S): [id number] ORDERING CLINICIAN: LEONARDO BERGER FINDINGS: Five view [...] MD (PGY-3). This study was interpreted at [place], [place]. MACRO: None Signed by: Wanda Montalvo 05/11/2025 5:01 AM Dictation workstation: [id number] [facility] Work Phone: [facility] Work Phone: Radiology Study observation (narrative) [facility] Work Phone: Basic metabolic 2000 panelon 05-10-2025 Anion gap [Moles/Vol] 10 mmol/L 10 - 2 0 mmol/L [facility] Calcium [Mass/Vol] 8.7 mg/dL 8.6 - 10. 3 mg/dL [facility] Chloride [Moles/Vol] 106 mmol/L 98 - 10 7 mmol/L [facility] CO2 [Moles/Vol] 26 mmol/L 21 - 32 mmol/L [facility] Creatinine [Mass/Vol] 0.77 mg/dL 0.50 - 1.30 mg/dL [facility] GFR/1.73 sq M.predicted among non-blacks MDRD (S/P/Bld) [Vol rate/Area] 86 mL/min/{1.73_m2} - PINF [facility] Comment on above: Calculations of leonides mated GFR are performed using the 2020 CKD-EPI Study Refit equation without the race variable for the IDMS-Traceable creatinine methods. https://jasn.asnjournals.org/content//ASN.85195 24393 Glucose [Mass/Vol] 95 mg/dL 74 - 99 mg/dL [facility] Interpretation and review of laboratory results Abnormal [facility] Potassium [Moles/Vol] 3.9 mmol/L 3.5 - 5.3 mmol/L [facility] Sodium [Moles/Vol] 138 mmol/L 136 - 145 mmol/L [facility] Urea nitrogen [Mass/Vol] 26 mg/dL High 6 - 23 mg/dL [facility] Anion gap [Moles/Vol] 10 mmol/L Normal 10-20 [facility] Comment on above: Performed By: #### 2 4321-2 #### KALIN OSBORN ([id number]) [facility] ([facility]) [address] [place] [address] 48693 Calcium [Mass/Vol] 8.7 mg/dL Normal 8.6-10.3 [facility] Comment on above: Performed By: #### 2 4321-2 #### KALIN OSBORN ([id number]) [facility] ([facility]) [address] [place] [address] 79169 Chloride [Moles/Vol] 106 mmol/L Normal 98-107 [facility] Comment on above: Performed By: #### 2 4321-2 #### KALIN OSBORN ([id number]) [facility] ([facility]) [address] [place] [address] 44811 CO2 [Moles/Vol] 26 mmol/L Normal 21-32 [facility] Comment on above: Performed By: #### 2 4321-2 #### KALIN OSBORN ([id number]) [facility] ([facility]) [address] [place] [address] 20637 Creatinine [Mass/Vol] 0.77 mg/dL Normal 0.50-1.30 [facility] Comment on above: Performed By: #### 2 4321-2 #### KALIN OSBORN ([id number]) [facility] ([facility]) [address] [place] [address] 52394 Glomerular filtration rate/1.73 sq M.predicted 86 mL/min/1.73m*2 Normal >60 [facility] Comment on above: Result Comment: Calc ulations of estimated GFR are performed using the 2020 CKD-EPI Study Refit equation without the race variable for the IDMS-Traceable creatinine methods. https://jasn.asnjournals.org/content//ASN.55566 06310 Performed By: #### 2 4321-2 #### KALIN OSBORN ([id number]) [facility] ([facility]) [facility] [place] [address] Glucose [Mass/Vol] 95 mg/dL Normal 74-99 [facility] Comment on above: Performed By: #### 2 4321-2 #### KALIN OSBORN ([id number]) [facility] ([facility]) [address] [place] [address] 71203 Potassium [Moles/Vol] 3.9 mmol/L Normal 3.5-5.3 [facility] Comment on above: Performed By: #### 2 4321-2 #### KALIN OSBORN ([id number]) [facility] ([facility]) [address] [place] [address] Sodium [Moles/Vol] 138 mmol/L Normal 136-145 [facility] Comment on above: Performed By: #### 2 4321-2 #### KALIN OSBORN ([id number]) [facility] ([facility]) [facility] [place] [address] Urea nitrogen [Mass/Vol] 26 mg/dL High 6-23 [facility] Comment on above: Performed By: #### 2 4321-2 #### KALIN OSBORN ([id number]) [facility] ([facility]) [address] [place] [address] 41891 Blood type and Indirect anti body screen panel (Bld)on 05-10-2025 ABO group Nom (Bld) A [facility] Blood group antibody screen Ql Negative [facility] D Ag Ql (Bld) Positive [facility] ABO group Nom (Bld) A Normal [facility] Comment on above: Performed By: #### 3 4532-2 ####KALIN OSBORN ([id number])[facility] ([facility])[address] [place] [address] [place] Blood group antibody screen Ql Negative [facility] Comment on above: Performed By: #### 3 4532-2 ####KALIN OSBORN ([id number])[facility] [place] [address] [place] D Ag Ql (Bld) Positive [facility] Comment on above: Performed By: #### 3 4532-2 ####KALIN OSBORN ([id number])[facility] ([facility])[address] [place] [address] [place] CBC W Auto Differential pane l (Bld)on 05-10-2025 Basophils (Bld) [#/Vol] 0.04 10*3/uL [facility] Basophils/100 WBC (Bld) 0.4 % 0.0 - 2.0 % [facility] Eosinophils (Bld) [#/Vol] 0.11 10*3/uL [facility] Eosinophils/100 WBC (Bld) 1.0 % 0.0 - 6.0 % [facility] Erythrocyte distribution width (RBC) [Ratio] 12.5 % 11.5 - 14.5 % [facility] Hematocrit (Bld) [Volume fraction] 36.3 % Low 41.0 - 52.0 % [facility] Hemoglobin (Bld) [Mass/Vol] 12.3 g/dL Low 13.5 - 17.5 g/dL [facility] Immature granulocytes (Bld) [#/Vol] 0.15 10*3/uL [facility] Immature granulocytes/100 WBC (Bld) 1.4 % High 0.0 - 0.9 % [facility] Comment on above: Immature Granulocyte Count (IG) includes promyelocytes, myelocytes and metamyelocytes but does not include bands. Percent differential counts (%) should be interpreted in the context of the absolute cell counts (cells/UL). Interpretation and review of laboratory results Abnormal [facility] Lymphocytes (Bld) [#/Vol] 1.00 10*3/uL [facility] Lymphocytes/100 WBC (Bld) 9.4 % 13.0 - 44.0 % [facility] MCH (RBC) [Entitic mass] 33.6 pg 26.0 - 34.0 pg [facility] MCHC (RBC) [Mass/Vol] 33.9 g/dL 32.0 - 36.0 g/dL [facility] MCV (RBC) [Entitic vol] 99 fL 80 - 100 fL [facility] Monocytes (Bld) [#/Vol] 1.04 10*3/uL High [facility] Monocytes/100 WBC (Bld) 9.7 % 2.0 - 10.0 % [facility] Neutrophils (Bld) [#/Vol] 8.34 10*3/uL [facility] Comment on above: Percent differential counts (%) should be interpreted in the context of the absolute cell counts (cells/uL). Neutrophils/100 WBC (Bld) 78.1 % 40.0 - 80.0 % [facility] Nucleated RBC/100 WBC (Bld) [Ratio] 0.0 % [facility] Platelets (Bld) [#/Vol] 213 10*3/uL [facility] RBC (Bld) [#/Vol] 3.66 10*6/uL Low [facility] WBC (Bld) [#/Vol] 10.7 10*3/uL [facility] Basophils (Bld) [#/Vol] 0.04 x10*3/uL Normal 0.00-0.10 [facility] Comment on above: Performed By: #### 5 7021-8 #### KALIN OSBORN ([id number]) [facility] ([facility]) [address] [place] [address] 82952 Basophils/100 WBC (Bld) 0.4 % Normal 0.0-2.0 [facility] Comment on above: Performed By: #### 5 7021-8 #### KALIN OSBORN ([id number]) [facility] ([facility]) [address] [place] [address] 02007 Eosinophils (Bld) [#/Vol] 0.11 x10*3/uL Normal 0.00-0.40 [facility] Comment on above: Performed By: #### 5 7021-8 #### KALIN OSBORN ([id number]) [facility] ([facility]) [address] [place] [address] 01176 Eosinophils/100 WBC (Bld) 1.0 % Normal 0.0-6.0 [facility] Comment on above: Performed By: #### 5 7021-8 #### KALIN OSBORN ([id number]) [facility] ([facility]) [address] [place] [address] 00549 Erythrocyte distribution width (RBC) [Ratio] 12.5 % Normal 11.5-14.5 [facility] Comment on above: Performed By: #### 5 7021-8 #### KALIN OSBORN ([id number]) [facility] ([facility]) [address] [place] [address] 69991 Hematocrit (Bld) [Volume fraction] 36.3 % Low 41.0-52.0 [facility] Comment on above: Performed By: #### 5 7021-8 #### KALIN OSBORN ([id number]) [facility] ([facility]) [address] [place] [address] 66086 Hemoglobin (Bld) [Mass/Vol] 12.3 g/dL Low 13.5-17.5 [facility] Comment on above: Performed By: #### 5 7021-8 #### KALIN OSBORN ([id number]) [facility] ([facility]) [address] [place] [address] 24649 Immature granulocytes (Bld) [#/Vol] 0.15 x10*3/uL Normal 0.00-0.50 [facility] Comment on above: Performed By: #### 5 7021-8 #### KALIN OSBORN ([id number]) [facility] ([facility]) [address] [place] [address] 88066 Immature granulocytes/100 WBC (Bld) 1.4 % High 0.0-0.9 [facility] Comment on above: Result Comment: Steph ture Granulocyte Count (IG) includes promyelocytes, myelocytes and metamyelocytes but does not include bands. Percent differential counts (%) should be interpreted in the context of the absolute cell counts (cells/UL). Performed By: #### 5 7021-8 #### KALIN OSBORN ([id number]) [facility] ([facility]) [address] [place] [address] Lymphocytes (Bld) [#/Vol] 1.00 x10*3/uL Normal 0.80-3.00 [facility] Comment on above: Performed By: #### 5 7021-8 #### KALIN OSBORN ([id number]) [facility] ([facility]) [address] [place] [address] 74948 Lymphocytes/100 WBC (Bld) 9.4 % Normal 13.0-44.0 [facility] Comment on above: Performed By: #### 5 7021-8 #### KALIN OSBORN ([id number]) [facility] ([facility]) [address] [place], [place] [address] MCH (RBC) [Entitic mass] 33.6 pg Normal 26.0-34.0 [facility] Comment on above: Performed By: #### 5 7021-8 #### KALIN OSBORN ([id number]) [facility] ([facility]) [address] [place] [address] 93847 MCHC (RBC) [Mass/Vol] 33.9 g/dL Normal 32.0-36.0 [facility] Comment on above: Performed By: #### 5 7021-8 #### KALIN OSBORN ([id number]) [facility] ([facility]) [address] [place] [address] 71749 MCV (RBC) [Entitic vol] 99 fL Normal 80-100 [facility] Comment on above: Performed By: #### 5 7021-8 #### KALIN OSBORN ([id number]) [facility] ([facility]) [address] [place] [address] 18187 Monocytes (Bld) [#/Vol] 1.04 x10*3/uL High 0.05-0.80 [facility] Comment on above: Performed By: #### 5 7021-8 #### KALIN OSBORN ([id number]) [facility] ([facility]) [address] [place] [address] 01792 Monocytes/100 WBC (Bld) 9.7 % Normal 2.0-10.0 [facility] Comment on above: Performed By: #### 5 7021-8 #### KALIN OSBORN ([id number]) [facility] ([facility]) [address] [place] [address] 09590 Neutrophils (Bld) [#/Vol] 8.34 x10*3/uL High 1.60-5.50 [facility] Comment on above: Result Comment: Perc ent differential counts (%) should be interpreted in the context of the absolute cell counts (cells/uL). Performed By: #### 5 7021-8 #### KALIN OSBORN ([id number]) [facility] ([facility]) [address] [place] [address] 10026 Neutrophils/100 WBC (Bld) 78.1 % Normal 40.0-80.0 [facility] Comment on above: Performed By: #### 5 7021-8 #### KALIN OSBORN ([id number]) [facility] ([facility]) [address] [place] [address] 44503 Nucleated RBC/100 WBC (Bld) [Ratio] 0.0 /100 WBCs Normal 0.0-0.0 [facility] Comment on above: Performed By: #### 5 7021-8 #### KALIN OSBORN ([id number]) [facility] ([facility]) [address] [place] [address] 62945 Platelets (Bld) [#/Vol] 213 x10*3/uL Normal 150-450 [facility] Comment on above: Performed By: #### 5 7021-8 #### KALIN OSBORN ([id number]) [facility] ([facility]) [address] [place] [address] 14130 RBC (Bld) [#/Vol] 3.66 x10*6/uL Low 4.50-5.90 [facility] Comment on above: Performed By: #### 5 7021-8 #### KALIN IRENA ([id number]) [facility] ([facility]) [address] [place] [address] WBC (Bld) [#/Vol] 10.7 x10*3/uL Normal 4.4-11.3 [facility] Comment on above: Performed By: #### 5 7021-8 #### GAGNON IRENA ([id number]) [facility] ([facility]) [address] [place] [address] CT 3D RECONSTRUCTIONon 05-10 CT 3D RECONSTRUCTION Interpreted By: Michelle Zambrano, STUDY: CT HEAD WO IV CONTRAST; CT FACIAL BONES WO IV CONTRAST; CT 3D RECONSTRUCTION; CT CERVICAL SPINE WO IV CONTRAST; 05/10/2025 3:01 pm; 05/10/2025 3:08 pm INDICATION: Signs/Symptoms:fall. COMPARISON: Head CT 11/15/2023 ACCESSION NUMBER(S): [id number]; [id number]; [id number]; [id number] ORDERING CLINICIAN: SANTIAGO MENENDEZ TECHNIQUE: Axial noncontrast [...] care surgeons. J Trauma Acute Care Surg. 2014;76:958i012. FACIAL BONES: No acute facial bone fracture. [...] Michelle Zambrano 05/10/2025 4:33 PM Dictation workstation: [id number] [facility] CT CERVICAL SPINE WO IV CONT [facility] 05-10-2025 CT CERVICAL SPINE WO IV CONTRAST Interpreted By: Michelle Zambrano, STUDY: CT HEAD WO IV CONTRAST; CT FACIAL BONES WO IV CONTRAST; CT 3D RECONSTRUCTION; CT CERVICAL SPINE WO IV CONTRAST; 05/10/2025 3:01 pm; 05/10/2025 3:08 pm INDICATION: Signs/Symptoms:fall. COMPARISON: Head CT 11/15/2023 ACCESSION NUMBER(S): [id number]; [id number]; [id number]; [id number] ORDERING CLINICIAN: SANTIAGO MENENDEZ TECHNIQUE: Axial noncontrast [...] care surgeons. J Trauma Acute Care Surg. 2014;76:206c410. FACIAL BONES: No acute facial bone fracture. [...] Michelle Zambrano 05/10/2025 4:33 PM Dictation workstation: [id number] [facility] CT CHEST ABDOMEN PELVIS W IV CONTRASTon 05-10-2025 CT CHEST ABDOMEN PELVIS W IV CONTRAST Interpreted By: Michelle Zambrano, STUDY: CT CHEST ABDOMEN PELVIS W IV CONTRAST; 05/10/2025 3:05 pm INDICATION: Signs/Symptoms:fall. COMPARISON: None. ACCESSION NUMBER(S): [id number] ORDERING CLINICIAN: SANTIAGO MENENDEZ TECHNIQUE: Axial CT [...] Michelle Zambrano 05/10/2025 4:52 PM Dictation workstation: [id number] [facility] CT Chest and Abdomen and Pel [...] Michelle Zambrano 05/10/2025 4:52 PM Dictation workstation: [id number] [facility] Interpreted By: Michelle Zambrano, STUDY: CT CHEST ABDOMEN PELVIS W IV CONTRAST; 05/10/2025 3:05 pm INDICATION: Signs/Symptoms:fall. COMPARISON: None. ACCESSION NUMBER(S): [id number] ORDERING CLINICIAN: SANTIAGO MENENDEZ TECHNIQUE: Axial CT [...] pm INDICATION: Signs/Symptoms:fall. COMPARISON: None. ACCESSION NUMBER(S): [id number] ORDERING CLINICIAN: SANTIAGO MENENDEZ TECHNIQUE: Axial CT [...] Michelle Zambrano 05/10/2025 4:52 PM Dictation workstation: [id number] [facility] Work Phone: [facility] Work Phone: Radiology Study observation (narrative) [facility] Work Phone: CT FACIAL BONES WO IV CONTRA STon 05-10-2025 CT FACIAL BONES WO IV CONTRAST Interpreted By: Michelle Zambrano, STUDY: CT HEAD WO IV CONTRAST; CT FACIAL BONES WO IV CONTRAST; CT 3D RECONSTRUCTION; CT CERVICAL SPINE WO IV CONTRAST; 05/10/2025 3:01 pm; 05/10/2025 3:08 pm INDICATION: Signs/Symptoms:fall. COMPARISON: Head CT 11/15/2023 ACCESSION NUMBER(S): [id number]; [id number]; [id number]; [id number] ORDERING CLINICIAN: SANTIAGO MENENDEZ TECHNIQUE: Axial noncontrast [...] care surgeons. J Trauma Acute Care Surg. 2014;76:469c643. FACIAL BONES: No acute facial bone fracture. [...] Michelle Zambrano 05/10/2025 4:33 PM Dictation workstation: [id number] [facility] CT HEAD WO IV CONTRASTon CT HEAD WO IV CONTRAST Interpreted By: Wanda Montalvo and Omar Mahmoud STUDY: CT HEAD WO IV CONTRAST; 05/10/2025 11:27 pm INDICATION: Signs/Symptoms:Trauma, intracranial bleeding. Stability scan. COMPARISON: CT head without IV contrast 05/10/2025 3:03 p.m.. ACCESSION NUMBER(S): [id number] ORDERING CLINICIAN: CARRI GREER TECHNIQUE: Noncontrast axial [...] MD (PGY-3). This study was interpreted at [facility], [place], [place]. MACRO: None Signed by: Wanda Montalvo 05/11/2025 12:03 AM Dictation workstation: [id number] Normal [facility] CT HEAD WO IV CONTRAST Interpreted By: Michelle Zambrano, STUDY: CT HEAD WO IV CONTRAST; CT FACIAL BONES WO IV CONTRAST; CT 3D RECONSTRUCTION; CT CERVICAL SPINE WO IV CONTRAST; 05/10/2025 3:01 pm; 05/10/2025 3:08 pm INDICATION: Signs/Symptoms:fall. COMPARISON: Head CT 11/15/2023 ACCESSION NUMBER(S): [id number]; [id number]; [id number]; [id number] ORDERING CLINICIAN: SANTIAGO MENENDEZ TECHNIQUE: Axial noncontrast [...] hemorrhage): No Reference: Miguel Ángel Negron, Robyn CABRERA, Lesley Millan, et al. The BIG (brain injury guidelines) project: defining the management of traumatic brain injury by acute care surgeons. J Trauma Acute Care Surg. 2014;76:883l192. FACIAL BONES: No acute facial bone fracture. [...] Michelle Zambrano 05/10/2025 4:33 PM Dictation workstation: [id number] [facility] CT Head WO contraston 2024 Radiology Study observation (narrative) [facility] Work Phone: CT LUMBAR SPINE RETROSPECTIV E RECONSTRUCTION PROTOCOLon 05-10-2025 CT LUMBAR SPINE RETROSPECTIVE RECONSTRUCTION PROTOCOL STUDY: CT Thoracic Spine, and Lumbar Spine without IV Contrast; 05/10/2025 at 10:38 PM. INDICATION: Trauma. COMPARISON: CT CAP 05/10/2025. ACCESSION NUMBER(S): [id number], [id number] ORDERING CLINICIAN: ELIAN ROTHMAN TECHNIQUE: CT of [...] consider MRI. Signed by Joey Paz MD [facility] CT THORACIC SPINE RETROSPECT DERRELL RECONSTRUCTION PROTOCOLon 05-10-2025 CT THORACIC SPINE RETROSPECTIVE RECONSTRUCTION PROTOCOL STUDY: CT Thoracic Spine, and Lumbar Spine without IV Contrast; 05/10/2025 at 10:38 PM. INDICATION: Trauma. COMPARISON: CT CAP 05/10/2025. ACCESSION NUMBER(S): [id number], [id number] ORDERING CLINICIAN: ELIAN ROTHMAN TECHNIQUE: CT of [...] consider MRI. Signed by Joey Paz MD Normal [facility] Coagulation surface inducedo n 05-10-2025 aPTT Coag (PPP) [Time] 29 s Normal 26-36 [facility] Comment on above: Order Comment: The A PTT is no longer used for monitoring Unfractionated Heparin Therapy. For monitoring Heparin Therapy, use the Heparin Assay. Performed By: #### 1 4979-9 #### KALIN OSBORN ([id number]) [facility] ([facility]) [address] [place] [address] Coagulation tissue factor in ducedon 05-10-2025 PT Coag (PPP) [Time] 11.8 s Normal 9.8-12.4 [facility] Comment on above: Performed By: #### 5 902-2 #### KALIN OSBORN ([id number]) [facility] ([facility]) [facility] [place] [address] ECG 12-LEADon 05-10-2025 ECG 12-LEAD Ventricular Rate 80 Atrial Rate 80 P-R Interval 176 QRS Duration 98 Q-T Interval 376 QTC Calculation(Bazett) 433 P [place] 56 R [place] -21 T [place] 55 QRS Count 14 Q Onset 210 P Onset 122 P Offset 180 T Offset 398 QTC Fredericia 414 Diagnosis Normal sinus rhythm Normal ECG When compared with ECG of 07-DEC-2023 09:54, Premature atrial complexes are no longer Present See ED provider note for full interpretation and clinical correlation Confirmed by Brandee Hawkins ([id number]) on 05/11/2025 1:16:43 PM Normal [facility] Laceration Repairon 05-10-20 25 Brandee Hawkins PA-C 05/10/2025 7:07 PM Laceration Repair Performed by: Brandee Hawkisn PA-C Authorized by: Santiago Menendez DO Consent: Consent obtained: Verbal Consent given by: Patient Risks, benefits, and alternatives were discussed: yes Risks discussed: Infection, need for additional repair, nerve damage, poor wound healing, poor cosmetic result, pain, retained foreign body, tendon damage and vascular damage Alternatives discussed: No treatment, delayed treatment, observation and referral [place] protocol: Procedure explained and questions answered to [...] Procedure completion: Tolerated well, no immediate complications [facility] Work Phone: [facility] Work Phone: No Panel Informationon [...] Michelle Zambrano 05/10/2025 4:33 PM Dictation workstation: [id number] [facility] Interpreted By: Michelle Zambrano, STUDY: CT HEAD WO IV CONTRAST; CT FACIAL BONES WO IV CONTRAST; CT 3D RECONSTRUCTION; CT CERVICAL SPINE WO IV CONTRAST; 05/10/2025 3:01 pm; 05/10/2025 3:08 pm INDICATION: Signs/Symptoms:fall. COMPARISON: Head CT 11/15/2023 ACCESSION NUMBER(S): [id number]; [id number]; [id number]; [id number] ORDERING CLINICIAN: SANTIAGO MENENDEZ TECHNIQUE: Axial noncontrast [...] care surgeons. J Trauma Acute Care Surg. 2014;76:548c053. FACIAL BONES: No acute facial bone fracture. [...] Signs/Symptoms:fall. COMPARISON: Head CT 11/15/2023 ACCESSION NUMBER(S): [id number]; [id number]; [id number]; [id number] ORDERING CLINICIAN: SANTIAGO MENENDEZ TECHNIQUE: Axial noncontrast [...] hemorrhage): No Reference: Miguel Ángel Negron, Robyn CABRERA, Lesley Millan, et al. The BIG (brain injury guidelines) project: defining the management of traumatic brain injury by acute care surgeons. J Trauma Acute Care Surg. 2014;76:764s674. FACIAL BONES: No acute facial bone fracture. [...] Michelle Zambrano 05/10/2025 4:33 PM Dictation workstation: [id number] [facility] Work Phone: Interpretation and review of laboratory results Normal [facility] Radiology Study observation (narrative) [facility] Work Phone: Radiology Study observation (narrative) [facility] Work Phone: No Panel InformationOrdered By: Michelle Zambrano on 05-10-2025 [facility] Work Phone: PT Coag (PPP) [Time]on 05-10 INR Coag (PPP) [Relative time] 1.1 {INR} 0.9 - 1.1 [facility] INR Coag (PPP) [Relative time] 1.1 Normal 0.9-1.1 [facility] Comment on above: Performed By: #### 5 902-2 #### GAGNON IRENA ([id number]) [facility] ([facility]) [address] [place] [address] Protime-INRon 05-10-2025 PT Coag (PPP) [Time] 11.8 s [facility] Tropinin I.cardiac panel Hig h sensitivity methodon 05-10-2025 Interpretation and review of laboratory results Normal [facility] Less than 99th percentile of [...] using a different testing methodology at [facility] than at other [facility]. Direct result comparisons should only be made within the same method. [facility] Interpretation and review of laboratory results Normal [facility] Less than 99th percentile of [...] using a different testing methodology at [facility] than at other [facility]. Direct result comparisons should only be made within the same method. [facility] Troponin I, High Sensitivity , Initialon 05-10-2025 Tropinin I.cardiac panel High sensitivity method 7 ng/L 0 - 20 ng/L [facility] Troponin I.cardiac panelon 0 05-10-2025 Tropinin I.cardiac panel High sensitivity method 6 ng/L Normal 0-20 [facility] Comment on above: Order Comment: Less than [...] using a different testing methodology at [facility] than at [facility]. Direct result comparisons should only be made within the same method. Performed By: #### 8 9577-1 #### KALIN OSBORN ([id number]) [facility] ([facility]) [address] [place] [address] 72092 Tropinin I.cardiac panel High sensitivity method 7 ng/L Normal 0-20 [facility] Comment on above: Order Comment: Less than [...] using a different testing methodology at [facility] than at [facility]. Direct result comparisons should only be made within the same method. Performed By: #### 8 9577-1 #### KALIN OSBORN ([id number]) [facility] ([facility]) [address] [place] [address] 19987 Troponin, High Sensitivity, 1 Houron 05-10-2025 Tropinin I.cardiac panel High sensitivity method 6 ng/L 0 - 20 ng/L [facility] XR HAND RIGHT 3+ VIEWSon XR HAND RIGHT 3+ VIEWS Interpreted By: Michelle Zambrano, STUDY: XR HAND RIGHT 3+ VIEWS; ; 05/10/2025 3:06 pm INDICATION: Signs/Symptoms:injury. COMPARISON: None. ACCESSION NUMBER(S): [id number] ORDERING CLINICIAN: SANTIAGO MENENDEZ FINDINGS: Three views right hand: No acute fracture or malalignment. Severe degenerative changes of the 1st carpometacarpal joint and moderate degenerative changes of the 2nd metacarpophalangeal joint. No radiopaque foreign body or soft tissue gas. IMPRESSION: No acute osseous abnormality. MACRO: None Signed by: Michelle Zambrano 05/10/2025 4:34 PM Dictation workstation: [id number] [facility] XR Hand - right 3 Viewson No acute osseous abnormality. MACRO: None Signed by: Michelle Zambrano 05/10/2025 4:34 PM Dictation workstation: [id number] Interpreted By: Michelle Zambrano, STUDY: XR HAND RIGHT 3+ VIEWS; ; 05/10/2025 3:06 pm INDICATION: Signs/Symptoms:injury. COMPARISON: None. ACCESSION NUMBER(S): [id number] ORDERING CLINICIAN: SANTIAGO MENENDEZ FINDINGS: Three views right hand: No acute fracture or malalignment. Severe degenerative changes of the 1st carpometacarpal joint and moderate degenerative changes of the 2nd metacarpophalangeal joint. No radiopaque foreign body or soft tissue gas. [facility] Michelle Zambrano MD - 05/10/2025 Interpreted By: Michelle Zambrano, STUDY: XR HAND RIGHT 3+ VIEWS; ; 05/10/2025 3:06 pm INDICATION: Signs/Symptoms:injury. COMPARISON: None. ACCESSION NUMBER(S): [id number] ORDERING CLINICIAN: SANTIAGO MENENDEZ FINDINGS: Three views right hand: No acute fracture or malalignment. Severe degenerative changes of the 1st carpometacarpal joint and moderate degenerative changes of the 2nd metacarpophalangeal joint. No radiopaque foreign body or soft tissue gas. IMPRESSION: No acute osseous abnormality. MACRO: None Signed by: Michelle Zambrano 05/10/2025 4:34 PM Dictation workstation: [id number] [facility] Work Phone: [facility] Work Phone: Radiology Study observation (narrative) [facility] Work Phone: aPTTon 05-10-2025 aPTT Coag (PPP) [Time] 29 [facility] Coag (PPP) [Time]on The APTT is no longe r used for monitoring Unfractionated Heparin Therapy. For monitoring Heparin Therapy, use the Heparin Assay. [facility] XR CERVICAL SPINE 2-3 VIEWSo n 05-08-2025 XR CERVICAL SPINE 2-3 VIEWS Interpreted By: Clement Estevez, STUDY: XR CERVICAL SPINE 2-3 VIEWS; ; 05/08/2025 10:25 am INDICATION: Signs/Symptoms:neck pain. ,M54.2 Cervicalgia COMPARISON: None. ACCESSION NUMBER(S): [id number] ORDERING CLINICIAN: DON BARRERA FINDINGS: There is [...] Clement Estevez 05/09/2025 8:28 AM Dictation workstation: [id number] Normal [facility] CBC (INCLUDES DIFF/PLT)on Basophils (Bld) [#/Vol] 0.05 10*3/uL Normal 0-200 [facility] Comment on above: Performed By: #### 5 239, 33158 #### [facility] [address], [address] [place] [id number] Software Engineering Analyst: Osman Rojo MD Basophils/100 WBC (Bld) 0.6 % Normal [facility] Comment on above: Performed By: #### 6 872, 21025 #### [facility] of [address], [address] [place] [address] Software Engineering Analyst: Osman Rojo MD Eosinophils (Bld) [#/Vol] 0.116 10*3/uL Normal 15-500 [facility] Comment on above: Performed By: #### 6 399, 50511 #### [facility] of [address], [address] [place] [address] Software Engineering Analyst: Osman Rojo MD Eosinophils/100 WBC (Bld) 1.4 % Normal [facility] Comment on above: Performed By: #### 6 399, 45916 #### [facility] of [address], [address] [place] [address] Software Engineering Analyst: Osman Rojo MD Erythrocyte distribution width (RBC) [Ratio] 12.3 % Normal 11.0-15.0 [facility] Comment on above: Performed By: #### 6 399, 25636 #### [facility] of [address], [address] [place] [address] Software Engineering Analyst: Osman Rojo MD Hematocrit (Bld) [Volume fraction] 40.6 % Normal 38.5-50.0 [facility] Comment on above: Performed By: #### 6 399, 57735 #### [facility] of [place] [address] Software Engineering Analyst: Osman Rojo MD Hemoglobin (Bld) [Mass/Vol] 13.0 g/dL Low 13.2-17.1 [facility] Comment on above: Performed By: #### 6 399, 44016 #### [facility] of [address], [address] [place] [address] Software Engineering Analyst: Osman Rojo MD Lymphocytes (Bld) [#/Vol] 1.204 10*3/uL Normal 850-3900 [facility] Comment on above: Performed By: #### 6 399, 98748 #### [facility] of [address], [address] [place] [address] Software Engineering Analyst: Osman Rojo MD Lymphocytes/100 WBC (Bld) 14.5 % Normal [facility] Comment on above: Performed By: #### 6 399, 90593 #### [facility] [place] [address] Software Engineering Analyst: Osman Rojo MD MCH (RBC) [Entitic mass] 33.5 pg High 27.0-33.0 [facility] Comment on above: Performed By: #### 6 399, 16380 #### [facility] of [place] [address] Software Engineering Analyst: Osman Rojo MD MCHC (RBC) [Mass/Vol] 32.0 [...] clinical condition. Performed By: #### 6 399, 92358 #### [facility] [place] [address] Software Engineering Analyst: Osman Rojo MD MCV (RBC) [Entitic vol] 104.6 fL High 80.0-100.0 [facility] Comment on above: Performed By: #### 6 399, 70168 #### [facility] [place] [address] Software Engineering Analyst: Osman Rojo MD Monocytes (Bld) [#/Vol] 0.498 10*3/uL Normal 200-950 [facility] Comment on above: Performed By: #### 6 399, 05467 #### [facility] [place] [address] Software Engineering Analyst: Osman Rojo MD Monocytes/100 WBC (Bld) 6.0 % Normal [facility] Comment on above: Performed By: #### 6 399, 72382 #### [facility] [place] [address] [place] [address] Software Engineering Analyst: Osman Rojo MD Neutrophils (Bld) [#/Vol] 6.433 10*3/uL Normal 5027-8643 [facility] Comment on above: Performed By: #### 6 399, 08354 #### [facility] of [address], [address] [place] [address] Software Engineering Analyst: Osman Rojo MD Neutrophils/100 WBC (Bld) 77.5 % Normal [facility] Comment on above: Performed By: #### 6 399, 04910 #### [facility] of [address], [address] [place] [address] Software Engineering Analyst: Osman Rojo MD Platelet mean volume (Bld) [Entitic vol] 9.4 fL Normal 7.5-12.5 [facility] Comment on above: Performed By: #### 6 399, 43306 #### [facility] of [address], [address] [place] [address] Software Engineering Analyst: Osman Rojo MD Platelets (Bld) [#/Vol] 263 10*3/uL Normal 140-400 [facility] Comment on above: Performed By: #### 6 399, 79028 #### [facility] of [address], [address] [place] [address] Software Engineering Analyst: Osman Rojo MD RBC (Bld) [#/Vol] 3.88 10*6/uL Low 4.20-5.80 [facility] Comment on above: Performed By: #### 6 399, 17835 #### [facility] of [address], [address] [place] [address] Software Engineering Analyst: Osman Rojo MD WBC (Bld) [#/Vol] 8.3 10*3/uL Normal 3.8-10.8 [facility] Comment on above: Performed By: #### 6 399, 56500 #### [facility] [place] [address] Software Engineering Analyst: Osman Rojo MD COMPREHENSIVE METABOLIC PANE L W/ANION GAPon 04-30-2025 Albumin [Mass/Vol] 4.5 g/dL Normal 3.6-5.1 [facility] Comment on above: Performed By: #### 6 399, 50799 #### [facility] [place] [address] Software Engineering Analyst: Osman Rojo MD ALP [Catalytic activity/Vol] 72 U/L Normal 35-144 [facility] Comment on above: Performed By: #### 6 399, 68491 #### [facility] [place] [address] Software Engineering Analyst: Osman Rojo MD ALT [Catalytic activity/Vol] 13 U/L Normal 9-46 [facility] Comment on above: Performed By: #### 6 399, 73002 #### [facility] [place] [address] Software Engineering Analyst: Osman Rojo MD AST [Catalytic activity/Vol] 15 U/L Normal 10-35 [facility] Comment on above: Performed By: #### 6 399, 33926 #### [facility] [place] [address] Software Engineering Analyst: Osman Rojo MD Bilirubin [Mass/Vol] 0.5 mg/dL Normal 0.2-1.2 [facility] Comment on above: Performed By: #### 6 399, 94397 #### [facility] [place] [address] Software Engineering Analyst: Osman Rojo MD Calcium [Mass/Vol] 8.9 mg/dL Normal 8.6-10.3 [facility] Comment on above: Performed By: #### 6 399, 30658 #### [facility] [place] [address] Software Engineering Analyst: Osman Rojo MD Chloride [Moles/Vol] 103 mmol/L Normal 98-110 [facility] Comment on above: Performed By: #### 6 399, 94901 #### [facility] of [address], [address] [place] [address] Software Engineering Analyst: Osman Rojo MD CO2 [Moles/Vol] 26 mmol/L Normal 20-32 [facility] Comment on above: Performed By: #### 6 399, 53203 #### [facility] of [address], [address] [place] [address] Software Engineering Analyst: Osman Rojo MD Creatinine [Mass/Vol] 0.75 mg/dL Normal 0.70-1.[address] [facility] Comment on above: Performed By: #### 6 399, 57602 #### [facility] [place] [address] Software Engineering Analyst: Osman Rojo MD ELECTROLYTE BALANCE 10 mmol/L (calc) Normal 7-17 [facility] Comment on above: Performed By: #### 6 399, 46134 #### [facility] [place] [address] Software Engineering Analyst: Osman Rojo MD GFR/1.73 sq M.predicted among non-blacks MDRD (S/P/Bld) [Vol rate/Area] 86 mL/min/{1.73_m2} Normal > OR = 60 [facility] Comment on above: Performed By: #### 6 399, 19394 #### [facility] [place] [address] Software Engineering Analyst: Osman Rojo MD Glucose [Mass/Vol] 86 mg/dL Normal 65-99 [facility] Comment on above: Result Comment: Fasting reference interval Performed By: #### 6 399, 99749 #### [facility] [place] [address] Software Engineering Analyst: Osman Rojo MD Potassium [Moles/Vol] 4.2 mmol/L Normal 3.5-5.[address] [facility] Comment on above: Performed By: #### 6 399, 93252 #### [facility] [place] [address] Software Engineering Analyst: Osman Rojo MD Protein [Mass/Vol] 6.2 g/dL Normal 6.1-8.1 [facility] Comment on above: Performed By: #### 6 399, 53165 #### [facility] [address], [address] [place] [address] Software Engineering Analyst: Osman Rojo MD Sodium [Moles/Vol] 139 mmol/L Normal 135-146 [facility] Comment on above: Performed By: #### 6 399, 40647 #### [facility] [address], [address] [place] [address] Software Engineering Analyst: Osman Rojo MD Urea nitrogen [Mass/Vol] 22 mg/dL Normal 7-25 [facility] Comment on above: Performed By: #### 6 399, 63288 #### [facility] [address], [address] [place] [address] Software Engineering Analyst: Osman Rojo MD XR RIBS 2 VIEWS [...] Sunday.. ,R07.81 Pleurodynia COMPARISON: None. ACCESSION NUMBER(S): [id number] ORDERING CLINICIAN: LINCOLN KING FINDINGS: Cardiac silhouette within normal limits. Mild bibasilar fibrotic stranding. No focal infiltrate, pleural effusion or pneumothorax. Nondisplaced fracture of the anterior left 6th rib. IMPRESSION: Nondisplaced fracture anterior left 6th rib. No pneumothorax. MACRO: None Signed by: Howard Elias 04/10/2025 1:50 PM Dictation workstation: [id number] [facility] XR Ribs Views and Chest PAon 04-10-2025 Nondisplaced fractur e anterior left 6th rib. No pneumothorax. MACRO: None Signed by: Howard Elias 04/10/2025 1:50 PM Dictation workstation: [id number] MMODAL Interpreted By: Howard Elias, STUDY: XR RIBS 2 VIEWS LEFT WITH CHEST PA OR AP; ; 04/10/2025 12:23 pm INDICATION: Signs/Symptoms:L lower anterior/lateral ribcage pain - reports sxs started after a chiropractic adjustment (done while he was laying on his abdomen) on Sunday.. ,R07.81 Pleurodynia COMPARISON: None. ACCESSION NUMBER(S): [id number] ORDERING CLINICIAN: LINCOLN KING FINDINGS: Cardiac silhouette within normal limits. Mild bibasilar fibrotic stranding. No focal infiltrate, pleural effusion or pneumothorax. Nondisplaced fracture of the anterior left 6th rib. MMODAL Howard Elias MD - 04/10/2025 Interpreted By: Howard Elias, STUDY: XR RIBS 2 VIEWS LEFT WITH CHEST PA OR AP; ; 04/10/2025 12:23 pm INDICATION: Signs/Symptoms:L lower anterior/lateral ribcage pain - reports sxs started after a chiropractic adjustment (done while he was laying on his abdomen) on Sunday.. ,R07.81 Pleurodynia COMPARISON: None. ACCESSION NUMBER(S): [id number] ORDERING CLINICIAN: LINCOLN KING FINDINGS: Cardiac silhouette within normal limits. Mild bibasilar fibrotic stranding. No focal infiltrate, pleural effusion or pneumothorax. Nondisplaced fracture of the anterior left 6th rib. IMPRESSION: Nondisplaced fracture anterior left 6th rib. No pneumothorax. MACRO: None Signed by: Howard Elias 04/10/2025 1:50 PM Dictation workstation: [id number] [facility] Work Phone: Radiology Study observation (narrative) [facility] Work Phone: XR Ribs Views and Chest PAOr dered By: Howard Elias on 04-10-2025 [facility] Work Phone: CBC (INCLUDES DIFF/PLT)on Basophils (Bld) [#/Vol] 0.05 10*3/uL Normal 0-200 [facility] Comment on above: Performed By: #### 9 290, 6399 #### [facility] [place] [address] Software Engineering Analyst: Osman Rojo MD Basophils/100 WBC (Bld) 0.6 % Normal [facility] Comment on above: Performed By: #### 9 2664, 6399 #### [facility] [place] [address] Software Engineering Analyst: Osman Rojo MD Eosinophils (Bld) [#/Vol] 0.116 10*3/uL Normal 15-500 [facility] Comment on above: Performed By: #### 9 128, 6399 #### [facility] [place] [address] Software Engineering Analyst: Osman Rojo MD Eosinophils/100 WBC (Bld) 1.4 % Normal [facility] Comment on above: Performed By: #### 9 711, 6399 #### [facility] [place] [address] Software Engineering Analyst: Osman Rojo MD Erythrocyte distribution width (RBC) [Ratio] 12.9 % Normal 11.0-15.0 [facility] Comment on above: Performed By: #### 9 278, 6399 #### [facility] [place] [address] Software Engineering Analyst: Osman Rojo MD Hematocrit (Bld) [Volume fraction] 38.2 % Low 38.5-50.0 [facility] Comment on above: Performed By: #### 9 277, 6399 #### [facility] [place] [address] Software Engineering Analyst: Osman Rojo MD Hemoglobin (Bld) [Mass/Vol] 12.8 g/dL Low 13.2-17.1 [facility] Comment on above: Performed By: #### 9 922, 6399 #### [facility] of [address], [address] [place] [address] Software Engineering Analyst: Osman Rojo MD Lymphocytes (Bld) [#/Vol] 0.764 10*3/uL Low 850-3900 [facility] Comment on above: Performed By: #### 9 977, 6399 #### [facility] of [address], [address] [place] [address] Software Engineering Analyst: Osman Rojo MD Lymphocytes/100 WBC (Bld) 9.2 % Normal [facility] Comment on above: Performed By: #### 9 2664, 6399 #### [facility] [place] [address] Software Engineering Analyst: Osman Rojo MD MCH (RBC) [Entitic mass] 34.0 pg High 27.0-33.0 [facility] Comment on above: Performed By: #### 9 933, 6399 #### [facility] of [address], [address] [place] [address] Software Engineering Analyst: Osman Rojo MD MCHC (RBC) [Mass/Vol] 33.5 [...] patient's clinical condition. Performed By: #### 9 660, 6399 #### [facility] of [address], [address] [place] [address] Software Engineering Analyst: Osman Rojo MD MCV (RBC) [Entitic vol] 101.3 fL High 80.0-100.0 [facility] Comment on above: Performed By: #### 9 767, 6399 #### [facility] of [address], [address] [place] [address] Software Engineering Analyst: Osman Rojo MD Monocytes (Bld) [#/Vol] 0.714 10*3/uL Normal 200-950 [facility] Comment on above: Performed By: #### 9 3345, 6399 #### [facility] [place] [address] Software Engineering Analyst: Osman Rojo MD Monocytes/100 WBC (Bld) 8.6 % Normal [facility] Comment on above: Performed By: #### 9 2664, 6399 #### [facility] [place] [address] Software Engineering Analyst: Osman Rojo MD Neutrophils (Bld) [#/Vol] 6.657 10*3/uL Normal 0978-4946 [facility] Comment on above: Performed By: #### 9 2664, 6399 #### [facility] [place] [address] Software Engineering Analyst: Osman Rojo MD Neutrophils/100 WBC (Bld) 80.2 % Normal [facility] Comment on above: Performed By: #### 9 2664, 6399 #### [facility] [place] [address] Software Engineering Analyst: Osman Rojo MD Platelet mean volume (Bld) [Entitic vol] 9.5 fL Normal 7.5-12.5 [facility] Comment on above: Performed By: #### 9 895, 6399 #### [facility] [place] [address] Software Engineering Analyst: Osman Rojo MD Platelets (Bld) [#/Vol] 280 10*3/uL Normal 140-400 [facility] Comment on above: Performed By: #### 9 115, 6399 #### [facility] [place] [address] Software Engineering Analyst: Osman Rojo MD RBC (Bld) [#/Vol] 3.77 10*6/uL Low 4.20-5.80 [facility] Comment on above: Performed By: #### 9 423, 6399 #### [facility] [address], [address] [place] [address] Software Engineering Analyst: Osman Rojo MD WBC (Bld) [#/Vol] 8.3 10*3/uL Normal 3.8-10.8 [facility] Comment on above: Performed By: #### 9 199, 6399 #### [facility] [address], [address] [place] [address] Software Engineering Analyst: Osman Rojo MD COMPREHENSIVE METABOLIC PANE L W/ANION GAPon 01-28-2025 Albumin [Mass/Vol] 4.1 g/dL Normal 3.6-5.1 [facility] Comment on above: Performed By: #### 9 700, 6399 #### [facility] [place] [address] Software Engineering Analyst: Osman Rojo MD ALP [Catalytic activity/Vol] 70 U/L Normal 35-144 [facility] Comment on above: Performed By: #### 9 152, 6399 #### [facility] [address], [address] [place] [address] Software Engineering Analyst: Osman Rojo MD ALT [Catalytic activity/Vol] 18 U/L Normal 9-46 [facility] Comment on above: Performed By: #### 9 079, 6399 #### [facility] [place] [address] Software Engineering Analyst: Osman Rojo MD AST [Catalytic activity/Vol] 19 U/L Normal 10-35 [facility] Comment on above: Performed By: #### 9 281, 6399 #### [facility] [address], [address] [place] [address] Software Engineering Analyst: Osman Rojo MD Bilirubin [Mass/Vol] 0.7 mg/dL Normal 0.2-1.2 [facility] Comment on above: Performed By: #### 9 000, 6399 #### [facility] [place] [address] Software Engineering Analyst: Osman Rojo MD Calcium [Mass/Vol] 8.7 mg/dL Normal 8.6-10.3 [facility] Comment on above: Performed By: #### 9 923, 6399 #### [facility] of [address], [address] [place] [address] Software Engineering Analyst: Osman Rojo MD Chloride [Moles/Vol] 104 mmol/L Normal 98-110 [facility] Comment on above: Performed By: #### 9 926, 6399 #### [facility] [address], [address] [place] [address] Software Engineering Analyst: Osman Rojo MD CO2 [Moles/Vol] 25 mmol/L Normal 20-32 [facility] Comment on above: Performed By: #### 9 585, 6399 #### [facility] [place] [address] Software Engineering Analyst: Osman Rojo MD Creatinine [Mass/Vol] 0.87 mg/dL Normal 0.70-1.[address] [facility] Comment on above: Performed By: #### 9 025, 6399 #### [facility] [place] [address] Software Engineering Analyst: Osman Rojo MD ELECTROLYTE BALANCE 11 mmol/L (calc) Normal 7-17 [facility] Comment on above: Performed By: #### 9 721, 6399 #### [facility] [place] [address] Software Engineering Analyst: Osman Rojo MD GFR/1.73 sq M.predicted among non-blacks MDRD (S/P/Bld) [Vol rate/Area] 83 mL/min/{1.73_m2} Normal > OR = 60 [facility] Comment on above: Performed By: #### 9 447, 6399 #### [facility] [place] [address] Software Engineering Analyst: Osman Rojo MD Glucose [Mass/Vol] 79 mg/dL Normal 65-99 [facility] Comment on above: Result Comment: Fasting reference interval Performed By: #### 9 2665, 6399 #### [facility] [address], [address] [place] [address] Software Engineering Analyst: Osman Rojo MD Potassium [Moles/Vol] 4.1 mmol/L Normal 3.5-5.3 [facility] Comment on above: Performed By: #### 9 961, 6399 #### [facility] [address], [address] [place] [address] Software Engineering Analyst: Osman Rojo MD Protein [Mass/Vol] 5.9 g/dL Low 6.1-8.1 [facility] Comment on above: Performed By: #### 9 9005, 6399 #### [facility] [address], [address] [place] [address] Software Engineering Analyst: Osman Rojo MD Sodium [Moles/Vol] 140 mmol/L Normal 135-146 [facility] Comment on above: Performed By: #### 9 2665, 6399 #### [facility] [place] [address] Software Engineering Analyst: Osman Rojo MD Urea nitrogen [Mass/Vol] 21 mg/dL Normal 7-25 [facility] Comment on above: Performed By: #### 9 4045, 6399 #### [facility] [place] [address] Software Engineering Analyst: Osman Rojo MD DIRECT LDLon 11-21-2024 Cholesterol [...] 293, 466, 457, 927 #### [facility] [address], [address] [place] [address] Software Engineering Analyst: Osman Rojo MD FERRITINon 11-21-2024 Ferritin [Mass/Vol] 158 ng/mL Normal 24-380 [facility] Comment on above: Performed By: #### 8 293, 466, 457, 927 #### [facility] [address], [address] [place] [address] Software Engineering Analyst: Osman Rojo MD FOLATE, SERUMon 11-21-2024 Folate [Mass/Vol] ng/mL Normal [facility] Comment on above: Result Comment: Refe rence Range Low: <3.4 Borderline: 3.4-5.4 Normal: >5.4 Performed By: #### 8 293, 466, 457, 927 #### [facility] [address], [address] [place] [address] Software Engineering Analyst: Osman Rojo MD VITAMIN B12on 11-21-2024 Cobalamin [...] 293, 466, 457, 927 #### [facility] [address], [address] [place] [address] Software Engineering Analyst: Osman Rojo MD CBC W Auto Differential pane l (Bld)on 11-10-2024 Basophils (Bld) [#/Vol] 0.06 x10*3/uL Normal 0.00-0.10 [facility] Comment on above: Performed By: #### 5 7021-8 #### KALIN OSBORN ([id number]) [facility] ([facility]) [address] [place] [address] Basophils/100 WBC (Bld) 0.6 % Normal 0.0-2.0 [facility] Comment on above: Performed By: #### 5 7021-8 #### KALIN OSBORN ([id number]) [facility] ([facility]) [address] [place] [address] Eosinophils (Bld) [#/Vol] 0.10 x10*3/uL Normal 0.00-0.40 [facility] Comment on above: Performed By: #### 5 7021-8 #### KALIN OSBORN ([id number]) [facility] ([facility]) [address] [place] [address] Eosinophils/100 WBC (Bld) 1.1 % Normal 0.0-6.0 [facility] Comment on above: Performed By: #### 7021-8 #### KALIN OSBORN ([id number]) [facility] ([facility]) [address] [place] [address]75 Erythrocyte distribution width (RBC) [Ratio] 13.4 % Normal 11.5-14.5 [facility] Comment on above: Performed By: #### 5 7021-8 #### KALIN OSBORN ([id number]) [facility] ([facility]) [address] [place] [address] Hematocrit (Bld) [Volume fraction] 41.4 % Normal 41.0-52.0 [facility] Comment on above: Performed By: #### 5 7021-8 #### KALIN OSBORN ([id number]) [facility] ([facility]) [address] [place] [address] Hemoglobin (Bld) [Mass/Vol] 13.0 g/dL Low 13.5-17.5 [facility] Comment on above: Performed By: #### 5 7021-8 #### KALIN OSBORN ([id number]) [facility] ([facility]) [address] [place] [address]76 Immature granulocytes (Bld) [#/Vol] 0.05 x10*3/uL Normal 0.00-0.50 [facility] Comment on above: Performed By: #### 5 7021-8 #### KALIN OSBORN ([id number]) [facility] ([facility]) [address] [place] [address] 34273 Immature granulocytes/100 WBC (Bld) 0.5 % Normal 0.0-0.9 [facility] Comment on above: Result Comment: Steph ture Granulocyte Count (IG) includes promyelocytes, myelocytes and metamyelocytes but does not include bands. Percent differential counts (%) should be interpreted in the context of the absolute cell counts (cells/UL). Performed By: #### 5 7021-8 #### KALIN OSBORN ([id number]) [facility] ([facility]) [address] [place] [address] Lymphocytes (Bld) [#/Vol] 1.08 x10*3/uL Normal 0.80-3.00 [facility] Comment on above: Performed By: #### 5 7021-8 #### KALIN OSBORN ([id number]) [facility] ([facility]) [address] [place] [address] Lymphocytes/100 WBC (Bld) 11.5 % Normal 13.0-44.0 [facility] Comment on above: Performed By: #### 5 7021-8 #### KALIN OSBORN ([id number]) [facility] ([facility]) [address] [place] [address] 19810 MCH (RBC) [Entitic mass] 33.2 pg Normal 26.0-34.0 [facility] Comment on above: Performed By: #### 5 7021-8 #### KALIN OSBORN ([id number]) [facility] ([facility]) [address] [place] [address] 90236 MCHC (RBC) [Mass/Vol] 31.4 g/dL Low 32.0-36.0 [facility] Comment on above: Performed By: #### 5 7021-8 #### KALIN OSBORN ([id number]) [facility] ([facility]) [address] [place] [address] 61072 MCV (RBC) [Entitic vol] 106 fL High 80-100 [facility] Comment on above: Performed By: #### 5 7021-8 #### KALIN OSBORN ([id number]) [facility] ([facility]) [address] [place] [address] 14987 Monocytes (Bld) [#/Vol] 0.85 x10*3/uL High 0.05-0.80 [facility] Comment on above: Performed By: #### 5 7021-8 #### KALIN OSBORN ([id number]) [facility] ([facility]) [address] [place] [address] 95997 Monocytes/100 WBC (Bld) 9.0 % Normal 2.0-10.0 [facility] Comment on above: Performed By: #### 5 7021-8 #### KALIN OSBORN ([id number]) [facility] ([facility]) [address] [place] [address] 46510 Neutrophils (Bld) [#/Vol] 7.27 x10*3/uL High 1.60-5.50 [facility] Comment on above: Result Comment: Perc ent differential counts (%) should be interpreted in the context of the absolute cell counts (cells/uL). Performed By: #### 5 7021-8 #### KALIN OSBORN ([id number]) [facility] ([facility]) [address] [place] [address] 58788 Neutrophils/100 WBC (Bld) 77.3 % Normal 40.0-80.0 [facility] Comment on above: Performed By: #### 5 7021-8 #### KALIN OSBORN ([id number]) [facility] ([facility]) [address] [place] [address] 88464 Nucleated RBC/100 WBC (Bld) [Ratio] 0.0 /100 WBCs Normal 0.0-0.0 [facility] Comment on above: Performed By: #### 5 7021-8 #### KALIN OSBORN ([id number]) [facility] ([facility]) [address] [place] [address] 18658 Platelets (Bld) [#/Vol] 270 x10*3/uL Normal 150-450 [facility] Comment on above: Performed By: #### 5 7021-8 #### KALIN OSBORN ([id number]) [facility] ([facility]) [address] [place] [address] 94349 RBC (Bld) [#/Vol] 3.92 x10*6/uL Low 4.50-5.90 [facility] Comment on above: Performed By: #### 5 7021-8 #### KALIN OSBORN ([id number]) [facility] ([facility]) [address] [place] [address] 32751 WBC (Bld) [#/Vol] 9.4 x10*3/uL Normal 4.4-11.3 [facility] Comment on above: Performed By: #### 5 7021-8 #### KALIN OSBORN ([id number]) [facility] ([facility]) [address] [place] [address] 39412 Comprehensive metabolic 2000 panelon 11-10-2024 Albumin BCP dye [Mass/Vol] 4.2 g/dL Normal 3.4-5.0 [facility] Comment on above: Performed By: #### 2 4323-8 #### KALIN OSBORN ([id number]) [facility] ([facility]) [address] [place] [address] 87105 ALP [Catalytic activity/Vol] 57 U/L Normal 33-136 [facility] Comment on above: Performed By: #### 2 4323-8 #### KALIN OSBORN ([id number]) [facility] ([facility]) [address] [place] [address] 88647 ALT With P-5'-P [Catalytic activity/Vol] 13 U/L Normal 10-52 [facility] Comment on above: Result Comment: Nicolette ents treated with Sulfasalazine may generate falsely decreased results for ALT. Performed By: #### 2 4323-8 #### KALIN OSBORN ([id number]) [facility] ([facility]) [address] [place] [address] 97283 Anion gap [Moles/Vol] 11 mmol/L Normal 10-20 [facility] Comment on above: Performed By: #### 2 4323-8 #### KALIN OSBORN ([id number]) [facility] ([facility]) [address] [place] [address] 45520 AST With P-5'-P [Catalytic activity/Vol] 15 U/L Normal 9-39 [facility] Comment on above: Performed By: #### 2 4323-8 #### KALIN OSBORN ([id number]) [facility] ([facility]) [address] [place] [address] Bilirubin [Mass/Vol] 0.7 mg/dL Normal 0.0-1.2 [facility] Comment on above: Performed By: #### 2 4323-8 #### KALIN OSBORN ([id number]) [facility] ([facility]) [address] [place] [address] 21301 Calcium [Mass/Vol] 9.0 mg/dL Normal 8.6-10.3 [facility] Comment on above: Performed By: #### 2 4323-8 #### KALIN OSBORN ([id number]) [facility] ([facility]) [address] [place] [address] 31746 Chloride [Moles/Vol] 106 mmol/L Normal 98-107 [facility] Comment on above: Performed By: #### 2 4323-8 #### KALIN OSBORN ([id number]) [facility] ([facility]) [address] [place] [address] CO2 [Moles/Vol] 28 mmol/L Normal 21-32 [facility] Comment on above: Performed By: #### 2 4323-8 #### KALIN OSBORN ([id number]) [facility] ([facility]) [address] [place] [address] 47299 Creatinine [Mass/Vol] 1.00 mg/dL Normal 0.50-1.30 [facility] Comment on above: Performed By: #### 2 4323-8 #### KALIN OSBORN ([id number]) [facility] ([facility]) [address] [place] [address] 99578 Glomerular filtration rate/1.73 sq M.predicted 72 mL/min/1.73m*2 Normal >60 [facility] Comment on above: Result Comment: Calc ulations of estimated GFR are performed using the 2020 CKD-EPI Study Refit equation without the race variable for the IDMS-Traceable creatinine methods. https://jasn.asnjournals.org/content/early/ASN.90162 79763 Performed By: #### 2 4323-8 #### KALIN OSBORN ([id number]) [facility] ([facility]) [address] [place] [address] 21853 Glucose [Mass/Vol] 85 mg/dL Normal 74-99 [facility] Comment on above: Performed By: #### 2 4323-8 #### KALIN OSBORN ([id number]) [facility] ([facility]) [address] [place] [address] 79252 Potassium [Moles/Vol] 4.4 mmol/L Normal 3.5-5.3 [facility] Comment on above: Performed By: #### 2 4323-8 #### KALIN OSBORN ([id number]) [facility] ([facility]) [address] [place] [address] 75211 Protein [Mass/Vol] 5.8 g/dL Low 6.4-8.2 [facility] Comment on above: Performed By: #### 2 4323-8 #### KALIN OSBORN ([id number]) [facility] ([facility]) [address] [place] [address] 78145 Sodium [Moles/Vol] 141 mmol/L Normal 136-145 [facility] Comment on above: Performed By: #### 2 4323-8 #### KALIN OSBORN ([id number]) [facility] ([facility]) [address] [place] [address] 78152 Urea nitrogen [Mass/Vol] 23 mg/dL Normal 6-23 [facility] Comment on above: Performed By: #### 2 4323-8 #### KALIN OSBORN ([id number]) [facility] ([facility]) [address] [place] [address] 22510 CBC W Auto Differential pane l (Bld)on 09-01-2024 Basophils (Bld) [#/Vol] 0.03 x10*3/uL Normal 0.00-0.10 [facility] Comment on above: Performed By: #### 5 7021-8 #### KALIN OSBORN ([id number]) [facility] ([facility]) [address] [place] [address] 80607 Basophils/100 WBC (Bld) 0.2 % Normal 0.0-2.0 [facility] Comment on above: Performed By: #### 7021-8 #### KALIN OSBORN ([id number]) [facility] ([facility]) [address] [place] [address] 83887 Eosinophils (Bld) [#/Vol] 0.03 x10*3/uL Normal 0.00-0.40 [facility] Comment on above: Performed By: #### 7021-8 #### KALIN OSBORN ([id number]) [facility] ([facility]) [address] [place] [address] 92384 Eosinophils/100 WBC (Bld) 0.2 % Normal 0.0-6.0 [facility] Comment on above: Performed By: #### 7021-8 #### KALIN OSBORN ([id number]) [facility] ([facility]) [address] [place] [address] 80804 Erythrocyte distribution width (RBC) [Ratio] 13.0 % Normal 11.5-14.5 [facility] Comment on above: Performed By: #### 5 7021-8 #### KALIN OSBORN ([id number]) [facility] ([facility]) [address] [place] [address] 71824 Hematocrit (Bld) [Volume fraction] 46.1 % Normal 41.0-52.0 [facility] Comment on above: Performed By: #### 5 7021-8 #### KALIN OSBORN ([id number]) [facility] ([facility]) [address] [place] [address] 51783 Hemoglobin (Bld) [Mass/Vol] 14.6 g/dL Normal 13.5-17.5 [facility] Comment on above: Performed By: #### 5 7021-8 #### KALIN OSBORN ([id number]) [facility] ([facility]) [address] [place] [address] 96666 Immature granulocytes (Bld) [#/Vol] 0.19 x10*3/uL Normal 0.00-0.50 [facility] Comment on above: Performed By: #### 5 7021-8 #### KALIN OSBORN ([id number]) [facility] ([facility]) [address] [place] [address] 08895 Immature granulocytes/100 WBC (Bld) 1.3 % High 0.0-0.9 [facility] Comment on above: Result Comment: Steph ture Granulocyte Count (IG) includes promyelocytes, myelocytes and metamyelocytes but does not include bands. Percent differential counts (%) should be interpreted in the context of the absolute cell counts (cells/UL). Performed By: #### 5 7021-8 #### KALIN OSBORN ([id number]) [facility] ([facility]) [address] [place] [address] 17542 Lymphocytes (Bld) [#/Vol] 0.96 x10*3/uL Normal 0.80-3.00 [facility] Comment on above: Performed By: #### 5 7021-8 #### KALIN OSBORN ([id number]) [facility] ([facility]) [address] [place] [address] 93418 Lymphocytes/100 WBC (Bld) 6.6 % Normal 13.0-44.0 [facility] Comment on above: Performed By: #### 5 7021-8 #### KALIN OSBORN ([id number]) [facility] ([facility]) [address] [place] [address] 58994 MCH (RBC) [Entitic mass] 33.6 pg Normal 26.0-34.0 [facility] Comment on above: Performed By: #### 5 7021-8 #### KALIN OSBORN ([id number]) [facility] ([facility]) [address] [place] [address] 21053 MCHC (RBC) [Mass/Vol] 31.7 g/dL Low 32.0-36.0 [facility] Comment on above: Performed By: #### 5 7021-8 #### KALIN OSBORN ([id number]) [facility] ([facility]) [address] [place] [address] 81652 MCV (RBC) [Entitic vol] 106 fL High 80-100 [facility] Comment on above: Performed By: #### 5 7021-8 #### KALIN OSBORN ([id number]) [facility] ([facility]) [address] [place] [address] 35140 Monocytes (Bld) [#/Vol] 1.47 x10*3/uL High 0.05-0.80 [facility] Comment on above: Performed By: #### 5 7021-8 #### KALIN OSBORN ([id number]) [facility] ([facility]) [address] [place] [address] 39265 Monocytes/100 WBC (Bld) 10.2 % Normal 2.0-10.0 [facility] Comment on above: Performed By: #### 5 7021-8 #### KALIN OSBORN ([id number]) [facility] ([facility]) [address] [place] [address] 01711 Neutrophils (Bld) [#/Vol] 11.78 x10*3/uL High 1.60-5.50 [facility] Comment on above: Result Comment: Perc ent differential counts (%) should be interpreted in the context of the absolute cell counts (cells/uL). Performed By: #### 5 7021-8 #### KALIN OSBORN ([id number]) [facility] ([facility]) [address] [place] [address] 20065 Neutrophils/100 WBC (Bld) 81.5 % Normal 40.0-80.0 [facility] Comment on above: Performed By: #### 5 7021-8 #### KALIN OSBORN ([id number]) [facility] ([facility]) [address] [place] [address] 72419 Nucleated RBC/100 WBC (Bld) [Ratio] 0.0 /100 WBCs Normal 0.0-0.0 [facility] Comment on above: Performed By: #### 5 7021-8 #### KALIN OSBORN ([id number]) [facility] ([facility]) [address] [place] [address] 82207 Platelets (Bld) [#/Vol] 305 x10*3/uL Normal 150-450 [facility] Comment on above: Performed By: #### 5 7021-8 #### KALIN OSBORN ([id number]) [facility] ([facility]) [address] [place] [address] RBC (Bld) [#/Vol] 4.35 x10*6/uL Low 4.50-5.90 [facility] Comment on above: Performed By: #### 5 7021-8 #### KALIN OSBORN ([id number]) [facility] ([facility]) [address] [place] [address] WBC (Bld) [#/Vol] 14.5 x10*3/uL High 4.4-11.3 [facility] Comment on above: Performed By: #### 5 7021-8 #### KALIN OSBORN ([id number]) [facility] ([facility]) [address] [place] [address] Comprehensive metabolic 2000 panelon 09-01-2024 Albumin BCP dye [Mass/Vol] 4.2 g/dL Normal 3.4-5.0 [facility] Comment on above: Performed By: #### 2 4323-8 #### KALIN OSBORN ([id number]) [facility] ([facility]) [address] [place] [address] ALP [Catalytic activity/Vol] 64 U/L Normal 33-136 [facility] Comment on above: Performed By: #### 2 4323-8 #### KALIN OSBORN ([id number]) [facility] ([facility]) [address] [place] [address] 93853 ALT With P-5'-P [Catalytic activity/Vol] 20 U/L Normal 10-52 [facility] Comment on above: Result Comment: Nicolette ents treated with Sulfasalazine may generate falsely decreased results for ALT. Performed By: #### 2 4323-8 #### KALIN OSBORN ([id number]) [facility] ([facility]) [address] [place] [address] Anion gap [Moles/Vol] 11 mmol/L Normal 10-20 [facility] Comment on above: Performed By: #### 2 4323-8 #### KALIN OSBORN ([id number]) [facility] ([facility]) [address] [place] [address] 93644 AST With P-5'-P [Catalytic activity/Vol] 14 U/L Normal 9-39 [facility] Comment on above: Performed By: #### 2 4323-8 #### KALIN OSBORN ([id number]) [facility] ([facility]) [address] [place] [address] 41905 Bilirubin [Mass/Vol] 0.8 mg/dL Normal 0.0-1.2 [facility] Comment on above: Performed By: #### 2 4322-8 #### KALIN OSBORN ([id number]) [facility] ([facility]) [address] [place] [address] 34014 Calcium [Mass/Vol] 9.2 mg/dL Normal 8.6-10.3 [facility] Comment on above: Performed By: #### 2 4322-8 #### KALIN OSBORN ([id number]) [facility] ([facility]) [address] [place] [address] 84481 Chloride [Moles/Vol] 105 mmol/L Normal 98-107 [facility] Comment on above: Performed By: #### 2 4323-8 #### KALIN OSBORN ([id number]) [facility] ([facility]) [address] [place] [address] 30615 CO2 [Moles/Vol] 29 mmol/L Normal 21-32 [facility] Comment on above: Performed By: #### 2 4323-8 #### KALIN OSBORN ([id number]) [facility] ([facility]) [address] [place] [address] 98095 Creatinine [Mass/Vol] 0.92 mg/dL Normal 0.50-1.30 [facility] Comment on above: Performed By: #### 2 4323-8 #### KALIN OSBORN ([id number]) [facility] ([facility]) [address] [place] [address] 89681 Glomerular filtration rate/1.73 sq M.predicted 80 mL/min/1.73m*2 Normal >60 [facility] Comment on above: Result Comment: Calc ulations of estimated GFR are performed using the 2020 CKD-EPI Study Refit equation without the race variable for the IDMS-Traceable creatinine methods. https://jasn.asnjournals.org/content//ASN.74562 62314 Performed By: #### 2 4323-8 #### KALIN OSBORN ([id number]) [facility] ([facility]) [address] [place] [address] 93658 Glucose [Mass/Vol] 52 mg/dL Low 74-99 [facility] Comment on above: Performed By: #### 2 4323-8 #### KALIN OSBORN ([id number]) [facility] ([facility]) [address] [place] [address] 74039 Potassium [Moles/Vol] 4.0 mmol/L Normal 3.5-5.3 [facility] Comment on above: Performed By: #### 2 4323-8 #### KALIN OSBORN ([id number]) [facility] ([facility]) [address] [place] [address] 71420 Protein [Mass/Vol] 6.2 g/dL Low 6.4-8.2 [facility] Comment on above: Performed By: #### 2 4323-8 #### KALIN OSBORN ([id number]) [facility] ([facility]) [address] [place] [address] 80233 Sodium [Moles/Vol] 141 mmol/L Normal 136-145 [facility] Comment on above: Performed By: #### 2 4323-8 #### KALIN OSBORN ([id number]) [facility] ([facility]) [address] [place] [address] 03873 Urea nitrogen [Mass/Vol] 30 mg/dL High 6-23 [facility] Comment on above: Performed By: #### 2 4323-8 #### KALIN OSBORN ([id number]) [facility] ([facility]) [address] [place] [address] 86853 ECG 12 Leadon 09-01-2024 79 bpm, NSR, no ST/T cxhanges [facility] Work Phone: [facility] Work Phone: TSH WITH REFLEX TO FREE T4 I F ABNORMALon 09-01-2024 TSH Qn 2.99 m[IU]/L Normal 0.44-3.98 [facility] Comment on above: Order Comment: TSH t esting is performed using different testing methodology at [facility] than at other [facility]. Direct result comparisons should only be made within the same method. Performed By: #### T FELICIANO #### KALIN OSBORN ([id number]) [facility] ([facility]) [address] [place] [address] 29211 CBC W Auto Differential pane l (Bld)on 08-14-2024 Basophils (Bld) [#/Vol] 0.06 x10*3/uL Normal 0.00-0.10 [facility] Comment on above: Performed By: #### 5 7021-8 #### KALIN OSBORN ([id number]) [facility] ([facility]) [address] [place] [address] 91133 Basophils/100 WBC (Bld) 0.6 % Normal 0.0-2.0 [facility] Comment on above: Performed By: #### 5 7021-8 #### KALIN OSBORN ([id number]) [facility] ([facility]) [address] [place] [address] 23362 Eosinophils (Bld) [#/Vol] 0.14 x10*3/uL Normal 0.00-0.40 [facility] Comment on above: Performed By: #### 5 7021-8 #### KALIN OSBORN ([id number]) [facility] ([facility]) [address] [place] [address] 58044 Eosinophils/100 WBC (Bld) 1.4 % Normal 0.0-6.0 [facility] Comment on above: Performed By: #### 5 7021-8 #### KALIN OSBORN ([id number]) [facility] ([facility]) [address] [place] [address] 96424 Erythrocyte distribution width (RBC) [Ratio] 13.1 % Normal 11.5-14.5 [facility] Comment on above: Performed By: #### 5 7021-8 #### KALIN OSBORN ([id number]) [facility] ([facility]) [address] [place] [address] 94587 Hematocrit (Bld) [Volume fraction] 40.2 % Low 41.0-52.0 [facility] Comment on above: Performed By: #### 5 7021-8 #### KALIN OSBORN ([id number]) [facility] ([facility]) [address] [place] [address] 28860 Hemoglobin (Bld) [Mass/Vol] 13.0 g/dL Low 13.5-17.5 [facility] Comment on above: Performed By: #### 5 7021-8 #### KALIN OSBORN ([id number]) [facility] ([facility]) [address] [place] [address] 64043 Immature granulocytes (Bld) [#/Vol] 0.05 x10*3/uL Normal 0.00-0.50 [facility] Comment on above: Performed By: #### 5 7021-8 #### KALIN OSBORN ([id number]) [facility] ([facility]) [address] [place] [address] 78986 Immature granulocytes/100 WBC (Bld) 0.5 % Normal 0.0-0.9 [facility] Comment on above: Result Comment: Steph ture Granulocyte Count (IG) includes promyelocytes, myelocytes and metamyelocytes but does not include bands. Percent differential counts (%) should be interpreted in the context of the absolute cell counts (cells/UL). Performed By: #### 5 7021-8 #### KALIN OSBORN ([id number]) [facility] ([facility]) [address] [place] [address] 91584 Lymphocytes (Bld) [#/Vol] 0.97 x10*3/uL Normal 0.80-3.00 [facility] Comment on above: Performed By: #### 5 7021-8 #### KALIN OSBORN ([id number]) [facility] ([facility]) [address] [place] [address] 33319 Lymphocytes/100 WBC (Bld) 10.0 % Normal 13.0-44.0 [facility] Comment on above: Performed By: #### 5 7021-8 #### KALIN OSBORN ([id number]) [facility] ([facility]) [address] [place] [address] 28045 MCH (RBC) [Entitic mass] 34.3 pg High 26.0-34.0 [facility] Comment on above: Performed By: #### 5 7021-8 #### KALIN OSBORN ([id number]) [facility] ([facility]) [address] [place] [address] 70086 MCHC (RBC) [Mass/Vol] 32.3 g/dL Normal 32.0-36.0 [facility] Comment on above: Performed By: #### 5 7021-8 #### KALIN OSBORN ([id number]) [facility] ([facility]) [address] [place] [address] 32360 MCV (RBC) [Entitic vol] 106 fL High 80-100 [facility] Comment on above: Performed By: #### 5 7021-8 #### KALIN OSBORN ([id number]) [facility] ([facility]) [address] [place] [address] 69829 Monocytes (Bld) [#/Vol] 0.55 x10*3/uL Normal 0.05-0.80 [facility] Comment on above: Performed By: #### 5 7021-8 #### KALIN OSBORN ([id number]) [facility] ([facility]) [address] [place] [address] 25716 Monocytes/100 WBC (Bld) 5.7 % Normal 2.0-10.0 [facility] Comment on above: Performed By: #### 5 7021-8 #### KALIN OSBORN ([id number]) [facility] ([facility]) [address] [place] [address] 92101 Neutrophils (Bld) [#/Vol] 7.90 x10*3/uL High 1.60-5.50 [facility] Comment on above: Result Comment: Perc ent differential counts (%) should be interpreted in the context of the absolute cell counts (cells/uL). Performed By: #### 5 7021-8 #### KALIN OSBORN ([id number]) [facility] ([facility]) [address] [place] [address] 68869 Neutrophils/100 WBC (Bld) 81.8 % Normal 40.0-80.0 [facility] Comment on above: Performed By: #### 5 7021-8 #### KALIN OSBORN ([id number]) [facility] ([facility]) [address] [place] [address] 22445 Nucleated RBC/100 WBC (Bld) [Ratio] 0.0 /100 WBCs Normal 0.0-0.0 [facility] Comment on above: Performed By: #### 5 7021-8 #### KALIN OSBORN ([id number]) [facility] ([facility]) [address] [place] [address] 90747 Platelets (Bld) [#/Vol] 249 x10*3/uL Normal 150-450 [facility] Comment on above: Performed By: #### 5 7021-8 #### KALIN OSBORN ([id number]) [facility] ([facility]) [address] [place] [address] 24720 RBC (Bld) [#/Vol] 3.79 x10*6/uL Low 4.50-5.90 [facility] Comment on above: Performed By: #### 5 7021-8 #### KALIN OSBORN ([id number]) [facility] ([facility]) [address] [place] [address] 47657 WBC (Bld) [#/Vol] 9.7 x10*3/uL Normal 4.4-11.3 [facility] Comment on above: Performed By: #### 5 7021-8 #### KALIN OSBORN ([id number]) [facility] ([facility]) [address] [place] [address] Comprehensive metabolic 2000 panelon 08-14-2024 Albumin BCP dye [Mass/Vol] 4.0 g/dL Normal 3.4-5.0 [facility] Comment on above: Performed By: #### 2 4323-8 #### KALIN OSBORN ([id number]) [facility] ([facility]) [address] [place] [address] ALP [Catalytic activity/Vol] 64 U/L Normal 33-136 [facility] Comment on above: Performed By: #### 2 4322-8 #### KALIN OSBORN ([id number]) [facility] ([facility]) [address] [place] [address] 45681 ALT With P-5'-P [Catalytic activity/Vol] 15 U/L Normal 10-52 [facility] Comment on above: Result Comment: Nicolette ents treated with Sulfasalazine may generate falsely decreased results for ALT. Performed By: #### 2 4323-8 #### KALIN OSBORN ([id number]) [facility] ([facility]) [address] [place] [address] Anion gap [Moles/Vol] 9 mmol/L Low 10-20 [facility] Comment on above: Performed By: #### 2 432-8 #### KALIN OSBORN ([id number]) [facility] ([facility]) [address] [place] [address] AST With P-5'-P [Catalytic activity/Vol] 15 U/L Normal 9-39 [facility] Comment on above: Performed By: #### 2 4323-8 #### KALIN OSBORN ([id number]) [facility] ([facility]) [address] [place] [address] Bilirubin [Mass/Vol] 0.9 mg/dL Normal 0.0-1.2 [facility] Comment on above: Performed By: #### 2 4323-8 #### KALIN OSBORN ([id number]) [facility] ([facility]) [address] [place] [address] 62863 Calcium [Mass/Vol] 8.8 mg/dL Normal 8.6-10.3 [facility] Comment on above: Performed By: #### 2 4323-8 #### KALIN OSBORN ([id number]) [facility] ([facility]) [address] [place] [address] 11052 Chloride [Moles/Vol] 105 mmol/L Normal 98-107 [facility] Comment on above: Performed By: #### 2 4323-8 #### KALIN OSBORN ([id number]) [facility] ([facility]) [address] [place] [address] 71972 CO2 [Moles/Vol] 30 mmol/L Normal 21-32 [facility] Comment on above: Performed By: #### 2 4323-8 #### KALIN OSBORN ([id number]) [facility] ([facility]) [address] [place] [address] 89639 Creatinine [Mass/Vol] 0.91 mg/dL Normal 0.50-1.30 [facility] Comment on above: Performed By: #### 2 4323-8 #### KALIN OSBORN ([id number]) [facility] ([facility]) [address] [place] [address] 18439 Glomerular filtration rate/1.73 sq M.predicted 81 mL/min/1.73m*2 Normal >60 [facility] Comment on above: Result Comment: Calc ulations of estimated GFR are performed using the 2020 CKD-EPI Study Refit equation without the race variable for the IDMS-Traceable creatinine methods. https://jasn.asnjournals.org/content/early//ASN.87329 15861 Performed By: #### 2 4323-8 #### KALIN OSBORN ([id number]) [facility] ([facility]) [address] [place] [address] 27632 Glucose [Mass/Vol] 120 mg/dL High 74-99 [facility] Comment on above: Performed By: #### 2 4323-8 #### KALIN OSBORN ([id number]) [facility] ([facility]) [address] [place] [address] 98019 Potassium [Moles/Vol] 4.2 mmol/L Normal 3.5-5.3 [facility] Comment on above: Performed By: #### 2 4323-8 #### KALIN OSBORN ([id number]) [facility] ([facility]) [address] [place] [address] 78545 Protein [Mass/Vol] 5.5 g/dL Low 6.4-8.2 [facility] Comment on above: Performed By: #### 2 4323-8 #### KALIN OSBORN ([id number]) [facility] [facility] ([facility]) [address] [place] [address] [id number] Sodium [Moles/Vol] 140 mmol/L Normal 136-145 [facility] Comment on above: Performed By: #### 2 4323-8 #### KALIN OSBORN ([id number]) [facility] ([facility]) [address] [place] [address] 71348 Urea nitrogen [Mass/Vol] 22 mg/dL Normal 6-23 [facility] Comment on above: Performed By: #### 2 3-8 #### KALIN OSBORN ([id number]) [facility] ([facility]) [address] [place] [address] [id number] US Heart TransthoracicOrdere d By: Otoniel Salcedo on 07-31-2024 Aortic Valve Area by Continuity of Peak Velocity 2.07 cm2 [facility] Work Phone: Aortic Valve Area by Continuity of VTI 1.83 cm2 [facility] Work Phone: AV mn grad 6.0 mmHg [facility] Work Phone: AV pk grad 10.6 mmHg [facility] Work Phone: AV pk neetu 1.63 m/s [facility] Work Phone: LA vol index A/L 18.0 ml/m2 [facility] Work Phone: LV A4C EF 61.1 [facility] Work Phone: LV Biplane EF 62 % [facility] Work Phone: LV EF 62 % [facility] Work Phone: LVIDd 4.18 cm [facility] Work Phone: LVOT diam 1.90 cm [facility] Work Phone: MV E/A ratio 0.76 [facility] Work Phone: RV free wall pk S' 12.80 cm/s [facility] Work Phone: RVSP 27.6 mmHg [facility] Work Phone: Tricuspid annular plane systolic excursion 2.5 cm [facility] Work Phone: [facility] Work Phone: [place] [address] [phone], TRANSTHORACIC ECHOCARDIOGRAM REPORT Patient Name: FAWN Lee Physician: Fab Salcedo MD Study Date: 07/31/2024 Ordering Provider: Fab SALCEDO MRN/PID: [id number] Fellow: Nurse: Clemente Brown RN Date of /Age: 5 1935 / 89 years Winemaker: Howard Viveros ANLI Gender: M Additional Staff: Height: 167.64 cm Admit Date: Weight: 67.59 kg Admission Status: Outpatient BSA / BMI: 1.76 m2 / 24.05 Department Location: [facility] Echo Lab kg/m2 Blood Pressure: 112 /65 mmHg Study Type: TRANSTHORACIC ECHO (TTE) COMPLETE Diagnosis/ICD: Personal history of transient ischemic attack (TIA), 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 Otoniel Lim MD - 07/31/2024 [place] [address] [phone], TRANSTHORACIC ECHOCARDIOGRAM REPORT Patient Name: FAWN Lee Physician: Fab Salcedo MD Study Date: 07/31/2024 Ordering Provider: Fab SALCEDO MRN/PID: [id number] Fellow: Nurse: Clemente Brown RN Date of /Age: 5 1935 / 89 years Winemaker: Howard Viveros RDCS Gender: M Additional Staff: Height: 167.64 cm Admit Date: Weight: 67.59 kg Admission Status: Outpatient BSA / BMI: 1.76 m2 / 24.05 Department Location: [facility] Echo Lab kg/m2 Blood Pressure: 112 /65 mmHg Study Type: TRANSTHORACIC ECHO (TTE) COMPLETE Diagnosis/ICD: Personal history of transient ischemic attack (TIA), 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 CPT Codes: Echo Complete w Full Doppler-46277 Study Detail: The following Echo studies were [...] LA Area A2C: 13.2 cm2 [place] A4C: 4.6 cm LA [place] A2C: 4.7 cm LA Volume Index: 16.0 [...] RV Syst Pressure: 28 mmHg (< 30mmHg) [id number] Otoniel Salcedo MD Electronically signed on 07/31/2024 at 9:32:31 AM Final [facility] Work Phone: US.doppler Aorta and Iliac a rtery - bilateralon 06-17-2024 [place] [address] [phone], Vascular Lab Report VASC US AORTA ILIAC DUPLEX COMPLETE Patient Name: FAWN Lee Physician: [id number] Miller Abdalla MD, RPVI Study Date: 06/17/2024 Ordering Provider: [id number] DON BARRERA MRN/PID: [id number] Fellow: Technologist: Annamaria Cornejo RVT/AB Date of /Age: 5 1935 / 89 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: Gender: M Admission Status: Outpatient Location Performed: [facility] Diagnosis/ICD: Abdominal aortic aneurysm, without rupture, unspecified-I71.40 CPT Codes: 43311 Duplex Aorta/IVC/Iliac/Bypass Graft CONCLUSIONS: Aorta/Common Iliac Arteries/IVC: [...] Proximal 1.40 cm 1.30 cm 142.00 cm/s [id number] Miller Abdalla MD, RPLUIS Final SYNGO Miller Abdalla MD - 06/17/2024 [place] [address] [phone], Vascular Lab Report VASC US AORTA ILIAC DUPLEX COMPLETE Patient Name: FAWN CAMERON Reading Physician: [id number] Miller Abdalla MD, RPVI Study Date: 06/17/2024 Ordering Provider: [id number] DON BARRERA MRN/PID: [id number] Fellow: Technologist: Annamaria Cornejo RVT/ Date of /Age: 5 1935 / 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: Gender: M Admission Status: Outpatient Location Performed: [facility] Diagnosis/ICD: Abdominal aortic aneurysm, without rupture, unspecified-I71.40 CPT Codes: 75860 Duplex Aorta/IVC/Iliac/Bypass Graft CONCLUSIONS: Aorta/Common Iliac Arteries/IVC: [...] Proximal 1.40 cm 1.30 cm 142.00 cm/s [id number] Miller Abdalla MD, SILVANA Final [facility] Work Phone: Radiology Study observation (narrative) [facility] Work Phone: US.doppler Aorta and Iliac a rtery - bilateralOrdered By: Miller Abdalla on 06-17-2024 [facility] Work Phone: OCT MACULA CIRRUS OU (BOTH E YES)on 03-05-2024 [facility] Radiology Study observation (narrative) [facility] CBC W Auto Differential pane l (Bld)on 12-07-2023 Basophils (Bld) [#/Vol] 0.06 10*3/uL [facility] Basophils/100 WBC (Bld) 0.6 % 0.0 - 2.0 % [facility] Eosinophils (Bld) [#/Vol] 0.11 10*3/uL [facility] Eosinophils/100 WBC (Bld) 1.0 % 0.0 - 6.0 % [facility] Erythrocyte distribution width (RBC) [Ratio] 12.9 % 11.5 - 14.5 % [facility] Hematocrit (Bld) [Volume fraction] 44.5 % 41.0 - 52.0 % [facility] Hemoglobin (Bld) [Mass/Vol] 14.8 g/dL 13.5 - 17.5 g/dL [facility] Immature granulocytes (Bld) [#/Vol] 0.06 10*3/uL [facility] Immature granulocytes/100 WBC (Bld) 0.6 % 0.0 - 0.9 % [facility] Comment on above: Immature Granulocyte Count (IG) includes promyelocytes, myelocytes and metamyelocytes but does not include bands. Percent differential counts (%) should be interpreted in the context of the absolute cell counts (cells/UL). Interpretation and review of laboratory results Abnormal [facility] Lymphocytes (Bld) [#/Vol] 0.97 10*3/uL [facility] Lymphocytes/100 WBC (Bld) 9.2 % 13.0 - 44.0 % [facility] MCH (RBC) [Entitic mass] 33.8 pg 26.0 - 34.0 pg [facility] MCHC (RBC) [Mass/Vol] 33.3 g/dL 32.0 - 36.0 g/dL [facility] MCV (RBC) [Entitic vol] 102 fL High 80 - 100 fL [facility] Monocytes (Bld) [#/Vol] 0.87 10*3/uL High [facility] Monocytes/100 WBC (Bld) 8.3 % 2.0 - 10.0 % [facility] Neutrophils (Bld) [#/Vol] 8.44 10*3/uL High [facility] Comment on above: Percent differential counts (%) should be interpreted in the context of the absolute cell counts (cells/uL). Neutrophils/100 WBC (Bld) 80.3 % 40.0 - 80.0 % [facility] Nucleated RBC/100 WBC (Bld) [Ratio] 0.0 % [facility] Platelets (Bld) [#/Vol] 298 10*3/uL [facility] RBC (Bld) [#/Vol] 4.38 10*6/uL Low [facility] WBC (Bld) [#/Vol] 10.5 10*3/uL [facility] Comprehensive [facility] 2000 panelon 12-07-2023 Albumin BCP dye [Mass/Vol] 4.4 g/dL 3.4 - 5.0 g/dL [facility] ALP [Catalytic activity/Vol] 76 U/L 33 - 136 U/L [facility] ALT With P-5'-P [Catalytic activity/Vol] 15 U/L 10 - 52 U/L [facility] Comment on above: Patients treated wit h Sulfasalazine may generate falsely decreased results for ALT. Anion gap [Moles/Vol] 13 mmol/L 10 - 2 0 mmol/L [facility] AST With P-5'-P [Catalytic activity/Vol] 17 U/L 9 - 39 U/L [facility] Bilirubin [Mass/Vol] 0.6 mg/dL 0.0 - 1 .2 mg/dL [facility] Calcium [Mass/Vol] 8.9 mg/dL 8.6 - 10. 3 mg/dL [facility] Chloride [Moles/Vol] 102 mmol/L 98 - 10 7 mmol/L [facility] CO2 [Moles/Vol] 24 mmol/L 21 - 32 mmol/L [facility] Creatinine [Mass/Vol] 0.93 mg/dL 0.50 - 1.30 mg/dL [facility] GFR/1.73 sq M.predicted among non-blacks MDRD (S/P/Bld) [Vol rate/Area] 79 mL/min/{1.73_m2} - PINF [facility] Comment on above: Calculations of leonides mated GFR are performed using the 2020 CKD-EPI Study Refit equation without the race variable for the IDMS-Traceable creatinine methods. https://jasn.asnjournals.org/content//ASN.44454 70521 Glucose [Mass/Vol] 96 mg/dL 74 - 99 mg/dL [facility] Interpretation and review of laboratory results Abnormal [facility] Potassium [Moles/Vol] 3.9 mmol/L 3.5 - 5.3 mmol/L [facility] Protein [Mass/Vol] 6.6 g/dL 6.4 - 8.2 g/dL [facility] Sodium [Moles/Vol] 135 mmol/L Low 136 - 145 mmol/L [facility] Urea nitrogen [Mass/Vol] 22 mg/dL 6 - 23 mg/dL [facility] MR Brain WO contraston 12-07 No acute infarct, intracranial mass effect or midline shift. 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 I personally reviewed the images/study and I agree with the findings as stated by Dr. Cabrera. MACRO: None Signed by: Kvng Meléndez 12/07/2023 12:24 PM Dictation workstation: [id number] [facility] Interpreted By: Kvng Proctor and Muddasani Dheeraj STUDY: MR BRAIN WO IV CONTRAST; 12/07/2023 11:21 am INDICATION: Signs/Symptoms:dizzine ss. COMPARISON: CT of the head 11/15/2023. MRI of the brain 01/25/2021. ACCESSION NUMBER(S): [id number] ORDERING CLINICIAN: CELSO CABEZAS TECHNIQUE: Noncontrast axial [...] patent. Bilateral lenses have been surgically replaced. [facility] Mel[facility] MD - 12/07/2023 Interpreted By: Kvng Meléndez and Muddasani Dheeraj STUDY: MR BRAIN WO IV CONTRAST; 12/07/2023 11:21 am INDICATION: Signs/Symptoms:dizzine ss. COMPARISON: CT of the head 11/15/2023. MRI of the brain 01/25/2021. ACCESSION NUMBER(S): [id number] ORDERING CLINICIAN: CELSO LEMASTERS TECHNIQUE: Noncontrast axial T2, FLAIR, DWI, gradient [...] Kvng Meléndez 12/07/2023 12:24 PM Dictation workstation: [id number] [facility] Work Phone: Radiology Study observation (narrative) [facility] Work Phone: MR Brain WO contrastOrdered By: Kvng Meléndez on 12-07-2023 [facility] Work Phone: Tropinin I.cardiac panel Hig h sensitivity methodon 12-07-2023 Interpretation and review of laboratory results Normal [facility] Less than 99th percentile of [...] using a different testing methodology at [facility] than at other [facility]. Direct result comparisons should only be made within the same method. [facility] Troponin I, High Sensitivity on 12-07-2023 Tropinin I.cardiac panel High sensitivity method 6 ng/L 0 - 20 ng/L [facility] Urinalysis complete W Reflex Culture panel (U)Ordered By: Erica Villa on 12-07-2023 Appearance (U) Clear Clear [facility] Bilirubin (U) [Mass/Vol] Negative NEGATIVE [facility] Color (U) Straw Straw, Yellow [facility] Glucose Auto test strip (U) [Mass/Vol] Negative NEGATIVE mg/dL [facility] Interpretation and review of laboratory results Normal [facility] Ketones (U) [Mass/Vol] Negative NEGAT DERRELL mg/dL [facility] Leukocyte esterase Auto test strip Ql (U) Negative NEGATIVE [facility] Nitrite Auto test strip Ql (U) Negative NEGATIVE [facility] pH (U) 7.0 [pH] 5.0, 5.5, 6.0, 6.5, 7.0, 7.5, 8.0 [facility] Protein (U) [Mass/Vol] Negative NEGAT DERRELL mg/dL [facility] RBC (U) [#/Vol] Negative NEGATIVE [facility] Specific gravity (U) [Rel density] 1.006 1.005 - 1.035 [facility] Urobilinogen (U) [Mass/Vol] mg/dL NINF - 2.0 mg/dL [facility] CBC W Auto Differential pane l (Bld)on 11-15-2023 Basophils (Bld) [#/Vol] 0.04 10*3/uL [facility] Basophils/100 WBC (Bld) 0.5 % 0.0 - 2.0 % [facility] Eosinophils (Bld) [#/Vol] 0.13 10*3/uL [facility] Eosinophils/100 WBC (Bld) 1.7 % 0.0 - 6.0 % [facility] Erythrocyte distribution width (RBC) [Ratio] 12.7 % 11.5 - 14.5 % [facility] Hematocrit (Bld) [Volume fraction] 41.2 % 41.0 - 52.0 % [facility] Hemoglobin (Bld) [Mass/Vol] 13.8 g/dL 13.5 - 17.5 g/dL [facility] Immature granulocytes (Bld) [#/Vol] 0.02 10*3/uL [facility] Immature granulocytes/100 WBC (Bld) 0.3 % 0.0 - 0.9 % [facility] Comment on above: Immature Granulocyte Count (IG) includes promyelocytes, myelocytes and metamyelocytes but does not include bands. Percent differential counts (%) should be interpreted in the context of the absolute cell counts (cells/UL). Interpretation and review of laboratory results Abnormal [facility] Lymphocytes (Bld) [#/Vol] 1.09 10*3/uL [facility] Lymphocytes/100 WBC (Bld) 14.2 % 13.0 - 44.0 % [facility] MCH (RBC) [Entitic mass] 33.8 pg 26.0 - 34.0 pg [facility] MCHC (RBC) [Mass/Vol] 33.5 g/dL 32.0 - 36.0 g/dL [facility] MCV (RBC) [Entitic vol] 101 fL High 80 - 100 fL [facility] Monocytes (Bld) [#/Vol] 0.60 10*3/uL [facility] Monocytes/100 WBC (Bld) 7.8 % 2.0 - 10.0 % [facility] Neutrophils (Bld) [#/Vol] 5.77 10*3/uL High [facility] Comment on above: Percent differential counts (%) should be interpreted in the context of the absolute cell counts (cells/uL). Neutrophils/100 WBC (Bld) 75.5 % 40.0 - 80.0 % [facility] Nucleated RBC/100 WBC (Bld) [Ratio] 0.0 % [facility] Platelets (Bld) [#/Vol] 202 10*3/uL [facility] Comment on above: Platelet count verif ied by smear review. RBC (Bld) [#/Vol] 4.08 10*6/uL [facility] WBC (Bld) [#/Vol] 7.7 10*3/uL [facility] CT Head WO contraston 2023 No evidence of acute cortical infarct or intracranial hemorrhage. No evidence of intracranial hemorrhage or displaced skull fracture. MACRO: None Signed by: Gera Grove 11/15/2023 5:02 PM Dictation workstation: [id number] [facility]ODAL Interpreted By: Gera Grove, STUDY: CT HEAD WO IV CONTRAST; 11/15/2023 4:58 pm INDICATION: Signs/Symptoms:foggy/d maría. COMPARISON: 03/10/2023 ACCESSION NUMBER(S): [id number] ORDERING CLINICIAN: BHARGAVI FELICIANO TECHNIQUE: Noncontrast axial [...] mucosal thickening of the left maxillary sinus. [facility] Gera Grove MD - 11/15/2023 Interpreted By: Gera Grove, STUDY: CT HEAD WO IV CONTRAST; 11/15/2023 4:58 pm INDICATION: Signs/Symptoms:foggy/d maría. COMPARISON: 03/10/2023 ACCESSION NUMBER(S): [id number] ORDERING CLINICIAN: BHARGAVI FELICIANO TECHNIQUE: Noncontrast axial [...] Gera Grove 11/15/2023 5:02 PM Dictation workstation: [id number] [facility] Work Phone: Radiology Study observation (narrative) [facility] Work Phone: CT Head WO contrastOrdered B y: Gera Grove on 11-15-2023 [facility] Work Phone: Comprehensive metabolic 2000 panelon 11-15-2023 Albumin BCP dye [Mass/Vol] 4.4 g/dL 3.4 - 5.0 g/dL [facility] ALP [Catalytic activity/Vol] 69 U/L 33 - 136 U/L [facility] ALT With P-5'-P [Catalytic activity/Vol] 14 U/L 10 - 52 U/L [facility] Comment on above: Patients treated wit h Sulfasalazine may generate falsely decreased results for ALT. Anion gap [Moles/Vol] 11 mmol/L 10 - 2 0 mmol/L [facility] AST With P-5'-P [Catalytic activity/Vol] 19 U/L 9 - 39 U/L [facility] Bilirubin [Mass/Vol] 0.7 mg/dL 0.0 - 1 .2 mg/dL [facility] Calcium [Mass/Vol] 8.8 mg/dL 8.6 - 10. 3 mg/dL [facility] Chloride [Moles/Vol] 106 mmol/L 98 - 10 7 mmol/L [facility] CO2 [Moles/Vol] 26 mmol/L 21 - 32 mmol/L [facility] Creatinine [Mass/Vol] 0.91 mg/dL 0.50 - 1.30 mg/dL [facility] GFR/1.73 sq M.predicted among non-blacks MDRD (S/P/Bld) [Vol rate/Area] 82 mL/min/{1.73_m2} - PINF [facility] Comment on above: Calculations of leonides mated GFR are performed using the 2020 CKD-EPI Study Refit equation without the race variable for the IDMS-Traceable creatinine methods. https://jasn.asnjournals.org/content//ASN.29925 26086 Glucose [Mass/Vol] 90 mg/dL 74 - 99 mg/dL [facility] Interpretation and review of laboratory results Abnormal [facility] Potassium [Moles/Vol] 4.1 mmol/L 3.5 - 5.3 mmol/L [facility] Protein [Mass/Vol] 6.3 g/dL Low 6.4 - 8.2 g/dL [facility] Sodium [Moles/Vol] 139 mmol/L 136 - 145 mmol/L [facility] Urea nitrogen [Mass/Vol] 18 mg/dL 6 - 23 mg/dL [facility] Glucose Test strip manual (B ld) [Mass/Vol]on 11-15-2023 Glucose [Mass/Vol] 96 mg/dL 74 - 99 mg/dL [facility] Interpretation and review of laboratory results Normal [facility] Influenza virus A and B and SARS-CoV-2 (COVID-19) identified DONY+probe Nom (Resp)on 11-15-2023 FLUAV RNA DONY+probe Ql (Resp) Not detected Not Detected [facility] FLUBV RNA DONY+probe Ql (Resp) Not detected Not Detected [facility] Interpretation and review of laboratory results Normal [facility] SARS-CoV-2 (COVID-19) RNA DONY+probe Ql (Resp) Not detected Not Detected [facility] This assay has received FDA [...] and has been validated for use at [facility]. Negative results do not preclude COVID-19 infections or Influenza A/B infections, and should not be used as the sole basis for diagnosis, treatment, or other management decisions. If Influenza A/B and RSV PCR results are negative, testing for Parainfluenza virus, Adenovirus and Metapneumovirus is routinely performed for [facility] pediatric oncology and intensive care inpatients, and is available on other patients by placing an add-on request. [facility] Magnesiumon 11-15-2023 Magnesium [Mass/Vol] 1.95 mg/dL 1.60 - 2.40 mg/dL [facility] Magnesium [Mass/Vol]on 11-15 Interpretation and review of laboratory results Normal [facility] No Panel Informationon 11-15 [facility] Interpretation and review of laboratory results Normal [facility] PT Coag (PPP) [Time]on 11-15 INR Coag (PPP) [Relative time] 1.1 {INR} 0.9 - 1.1 [facility] Protime-INRon 11-15-2023 PT Coag (PPP) [Time] 12.0 s [facility] Tropinin I.cardiac panel Hig h sensitivity methodon 11-15-2023 Interpretation and review of laboratory results Normal [facility] Less than 99th percentile of [...] using a different testing methodology at [facility] than at other [facility]. Direct result comparisons should only be made within the same method. [facility] Interpretation and review of laboratory results Normal [facility] Less than 99th percentile of [...] using a different testing methodology at [facility] than at other [facility]. Direct result comparisons should only be made within the same method. [facility] Troponin I, High Sensitivity , Initialon 11-15-2023 Tropinin I.cardiac panel High sensitivity method 4 ng/L 0 - 20 ng/L [facility] Troponin, High Sensitivity, 1 Houron 11-15-2023 Tropinin I.cardiac panel High sensitivity method 5 ng/L 0 - 20 ng/L [facility] Urinalysis complete W Reflex Culture panel (U)on 11-15-2023 Appearance (U) Clear Clear [facility] Bilirubin (U) [Mass/Vol] Negative NEGATIVE [facility] Color (U) [place]raw [place]raw, Yellow [facility] Glucose Auto test strip (U) [Mass/Vol] Negative NEGATIVE mg/dL [facility] Interpretation and review of laboratory results Normal [facility] Ketones (U) [Mass/Vol] Negative NEGAT DERRELL mg/dL [facility] Leukocyte esterase Auto test strip Ql (U) Negative NEGATIVE [facility] Nitrite Auto test strip Ql (U) Negative NEGATIVE [facility] pH (U) 7.0 [pH] 5.0, 5.5, 6.0, 6.5, 7.0, 7.5, 8.0 [facility] Protein (U) [Mass/Vol] Negative NEGAT DERRELL mg/dL [facility] RBC (U) [#/Vol] Negative NEGATIVE [facility] Specific gravity (U) [Rel density] 1.005 1.005 - 1.035 [facility] Urobilinogen (U) [Mass/Vol] mg/dL NINF - 2.0 mg/dL [facility] XR Chest Single viewon 11-15 1. No evidence of acute cardiopulmonary process. Signed by: Aung Julien 11/15/2023 5:18 PM Dictation workstation: [id number] [facility] Interpreted By: Aung Julien, STUDY: XR CHEST 1 VIEW; 11/15/2023 5:06 pm INDICATION: Signs/Symptoms:Chest Pain. COMPARISON: Chest radiograph 11/11/2023 ACCESSION NUMBER(S): [id number] ORDERING CLINICIAN: BHARGAVI FELICIANO FINDINGS: CARDIOMEDIASTINAL SILHOUETTE: Cardiomediastinal silhouette is normal in size and configuration. LUNGS: No consolidation, pneumothorax, or significant effusion. ABDOMEN: No remarkable upper abdominal findings. BONES: No acute osseous changes. MMODAL Aung Julien MD - 11/15/2023 Interpreted By: Aung Julien, STUDY: XR CHEST 1 VIEW; 11/15/2023 5:06 pm INDICATION: Signs/Symptoms:Chest Pain. COMPARISON: Chest radiograph 11/11/2023 ACCESSION NUMBER(S): [id number] ORDERING CLINICIAN: BHARGAVI FELICIANO FINDINGS: CARDIOMEDIASTINAL SILHOUETTE: Cardiomediastinal silhouette is normal in size and configuration. LUNGS: No consolidation, pneumothorax, or significant effusion. ABDOMEN: No remarkable upper abdominal findings. BONES: No acute osseous changes. IMPRESSION: 1. No evidence of acute cardiopulmonary process. Signed by: Aung Julien 11/15/2023 5:18 PM Dictation workstation: [id number] [facility] Work Phone: Radiology Study observation (narrative) [facility] Work Phone: XR Chest Single viewOrdered By: Aung Julien on 11-15-2023 [facility] Work Phone: aPTTon 11-15-2023 aPTT Coag (PPP) [Time] 29 [facility] Coag (PPP) [Time]on The APTT is no longe r used for monitoring Unfractionated Heparin Therapy. For monitoring Heparin Therapy, use the Heparin Assay. [facility] Basic metabolic 2000 panelon 11-11-2023 Anion gap [Moles/Vol] 12 mmol/L 10 - 2 0 mmol/L [facility] Calcium [Mass/Vol] 9.0 mg/dL 8.6 - 10. 3 mg/dL [facility] Chloride [Moles/Vol] 105 mmol/L 98 - 10 7 mmol/L [facility] CO2 [Moles/Vol] 26 mmol/L 21 - 32 mmol/L [facility] Creatinine [Mass/Vol] 0.98 mg/dL 0.50 - 1.30 mg/dL [facility] GFR/1.73 sq M.predicted among non-blacks MDRD (S/P/Bld) [Vol rate/Area] 75 mL/min/{1.73_m2} - PINF [facility] Comment on above: Calculations of leonides mated GFR are performed using the 2020 CKD-EPI Study Refit equation without the race variable for the IDMS-Traceable creatinine methods. https://jasn.asnjournals.org/content/early//ASN.00657 80212 Glucose [Mass/Vol] 117 mg/dL High 74 - 99 mg/dL [facility] Interpretation and review of laboratory results Abnormal [facility] Potassium [Moles/Vol] 3.8 mmol/L 3.5 - 5.3 mmol/L [facility] Sodium [Moles/Vol] 139 mmol/L 136 - 145 mmol/L [facility] Urea nitrogen [Mass/Vol] 22 mg/dL 6 - 23 mg/dL [facility] CBC W Auto Differential pane l (Bld)on 11-11-2023 Basophils (Bld) [#/Vol] 0.05 10*3/uL [facility] Basophils/100 WBC (Bld) 0.7 % 0.0 - 2.0 % [facility] Eosinophils (Bld) [#/Vol] 0.26 10*3/uL [facility] Eosinophils/100 WBC (Bld) 3.4 % 0.0 - 6.0 % [facility] Erythrocyte distribution width (RBC) [Ratio] 13.1 % 11.5 - 14.5 % [facility] Hematocrit (Bld) [Volume fraction] 41.7 % 41.0 - 52.0 % [facility] Hemoglobin (Bld) [Mass/Vol] 13.9 g/dL 13.5 - 17.5 g/dL [facility] Immature granulocytes (Bld) [#/Vol] 0.03 10*3/uL [facility] Immature granulocytes/100 WBC (Bld) 0.4 % 0.0 - 0.9 % [facility] Comment on above: Immature Granulocyte Count (IG) includes promyelocytes, myelocytes and metamyelocytes but does not include bands. Percent differential counts (%) should be interpreted in the context of the absolute cell counts (cells/UL). Interpretation and review of laboratory results Abnormal [facility] Lymphocytes (Bld) [#/Vol] 1.32 10*3/uL [facility] Lymphocytes/100 WBC (Bld) 17.3 % 13.0 - 44.0 % [facility] MCH (RBC) [Entitic mass] 33.6 pg 26.0 - 34.0 pg [facility] MCHC (RBC) [Mass/Vol] 33.3 g/dL 32.0 - 36.0 g/dL [facility] MCV (RBC) [Entitic vol] 101 fL High 80 - 100 fL [facility] Monocytes (Bld) [#/Vol] 0.85 10*3/uL High [facility] Monocytes/100 WBC (Bld) 11.2 % 2.0 - 10.0 % [facility] Neutrophils (Bld) [#/Vol] 5.11 10*3/uL [facility] Comment on above: Percent differential counts (%) should be interpreted in the context of the absolute cell counts (cells/uL). Neutrophils/100 WBC (Bld) 67.0 % 40.0 - 80.0 % [facility] Nucleated RBC/100 WBC (Bld) [Ratio] 0.0 % [facility] Platelets (Bld) [#/Vol] 242 10*3/uL [facility] RBC (Bld) [#/Vol] 4.14 10*6/uL Low [facility] WBC (Bld) [#/Vol] 7.6 10*3/uL [facility] Natriuretic peptide B [Mass/ Vol]on 11-11-2023 Interpretation and review of laboratory results Abnormal [facility] Natriuretic peptide B (Bld) [Mass/Vol] 108 pg/mL High 0 - 99 pg/mL [facility] <100 pg/mL - Heart failure unlikely 100-299 pg/mL - Intermediate probability of acute heart failure exacerbation. Correlate with clinical context and patient history. >=300 pg/mL - Heart Failure likely. Correlate with clinical context and patient history. BNP testing is performed using different testing methodology at [facility] than at other [facility]. Direct result comparisons should only be made within the same method. [facility] No Panel Informationon 11-11 [facility] Tropinin I.cardiac panel Hig h sensitivity methodon 11-11-2023 Interpretation and review of laboratory results Normal [facility] Less than 99th percentile of [...] using a different testing methodology at [facility] than at other [facility]. Direct result comparisons should only be made within the same method. [facility] Troponin I, High Sensitivity on 11-11-2023 Tropinin I.cardiac panel High sensitivity method 5 ng/L 0 - 20 ng/L [facility] Urinalysis complete W Reflex Culture panel (U)on 11-11-2023 Appearance (U) Clear Clear [facility] Bilirubin (U) [Mass/Vol] Negative NEGATIVE [facility] Color (U) Straw Straw, Yellow [facility] Glucose Auto test strip (U) [Mass/Vol] Negative NEGATIVE mg/dL [facility] Interpretation and review of laboratory results Normal [facility] Ketones (U) [Mass/Vol] Negative NEGAT DERRELL mg/dL [facility] Leukocyte esterase Auto test strip Ql (U) Negative NEGATIVE [facility] Nitrite Auto test strip Ql (U) Negative NEGATIVE [facility] pH (U) 6.0 [pH] 5.0, 5.5, 6.0, 6.5, 7.0, 7.5, 8.0 [facility] Protein (U) [Mass/Vol] Negative NEGAT DERRELL mg/dL [facility] RBC (U) [#/Vol] Negative NEGATIVE [facility] Specific gravity (U) [Rel density] 1.013 1.005 - 1.035 [facility] Urobilinogen (U) [Mass/Vol] mg/dL NINF - 2.0 mg/dL [facility] XR Chest Single viewon 11-11 No acute cardiopulmonary process. MACRO: None Signed by: Wanda Montalvo 11/11/2023 9:44 PM Dictation workstation: [id number] MMODAL Interpreted By: Wanda Montalvo, STUDY: XR CHEST 1 VIEW; 11/11/2023 9:29 pm INDICATION: Signs/Symptoms:General ized weakness. COMPARISON: Chest x-ray 09/23/2022 ACCESSION NUMBER(S): [id number] ORDERING CLINICIAN: SAI MYERS FINDINGS: CARDIOMEDIASTINAL SILHOUETTE: [...] CHEST 1 VIEW; 11/11/2023 9:29 pm INDICATION: Signs/Symptoms:General ized weakness. COMPARISON: Chest x-ray 09/23/2022 ACCESSION NUMBER(S): [id number] ORDERING CLINICIAN: SAI MYERS FINDINGS: CARDIOMEDIASTINAL SILHOUETTE: Cardiac silhouette is borderline enlarged. Atherosclerotic calcification of the aorta. LUNGS: No consolidation, pleural effusion or pneumothorax. ABDOMEN: Oral contrast noted in the visualized colon. 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 IMPRESSION: No acute cardiopulmonary process. MACRO: None Signed by: Wanda Montalvo 11/11/2023 9:44 PM Dictation workstation: [id number] [facility] Work Phone: Radiology Study observation (narrative) [facility] Work Phone: XR Chest Single viewOrdered By: Wanda Montalvo on 11-11-2023 [facility] Work Phone: RF Esophagus Views W barium contrast Julito 11-06-2023 1. Small to moderate sized sliding hiatal hernia and gastroesophageal reflux. 2. Minimal esophageal dysmotility noted. Signed by: João Zamora 11/06/2023 12:10 PM Dictation workstation: [id number] MMODAL Interpreted By: João Zamora, STUDY: [place] GI ESOPHAGRAM; 11/06/2023 9:01 am INDICATION: Signs/Symptoms:Hiatal hernia, dysphagia. COMPARISON: None. ACCESSION NUMBER(S): [id number] ORDERING CLINICIAN: DAYSI ARENAS TECHNIQUE: Initial automatic line set up mechanic radiograph of the esophagus was obtained. Multiple fluoroscopic spot images were obtained after the administration of effervescent crystals and 100 mL of barium contrast. The patient tolerated the procedure well. Fluoroscopic time was 1.8 minutes. FINDINGS: Initial automatic line set up mechanic image is grossly unremarkable. Fluoroscopic images demonstrate [...] Signs/Symptoms:Hiatal hernia, dysphagia. COMPARISON: None. ACCESSION NUMBER(S): [id number] ORDERING CLINICIAN: DAYSI ARENAS TECHNIQUE: Initial automatic line set up mechanic radiograph of the esophagus was obtained. Multiple fluoroscopic spot images were obtained after the administration of effervescent crystals and 100 mL of barium contrast. The patient tolerated the procedure well. Fluoroscopic time was 1.8 minutes. FINDINGS: Initial automatic line set up mechanic image is grossly unremarkable. Fluoroscopic images demonstrate [...] João Zamora 11/06/2023 12:10 PM Dictation workstation: [id number] [facility] Work Phone: Radiology Study observation (narrative) [facility] Work Phone: RF Esophagus Views W barium contrast POOrdered By: João Zamora on 11-06-2023 [facility] Work Phone: Skin prepon 10-24-2023 Prepped for [facility] POCT UA (nonautomated w/o mi croscopy) manually resultedon 10-06-2023 Appearance (U) Clear Clear [facility] Work Phone: Glucose Test strip (U) [Mass/Vol] Negative NEGATIVE mg/dl [facility] Work Phone: Hemoglobin Ql (U) TRACE-Intact Abnormal NEGATIVE Unive [facility] Work Phone: Interpretation and review of laboratory results Abnormal [facility] Work Phone: Leukocyte esterase Test strip Ql (U) Negative NEGATIVE [facility] Work Phone: Nitrite Ql (U) Negative NEGATIVE [facility] Work Phone: pH (U) 7.0 [pH] No Reference Range Established [facility] Work Phone: POC Bilirubin, Urine Negative NEGATIVE [facility] Work Phone: POC Color, Urine Yellow Straw, Yellow, Light-Yellow [facility] Work Phone: POC Ketones, Urine Negative NEGATIVE mg/dl [facility] Work Phone: POC Protein, Urine Negative NEGATIVE, 30 (1+) mg/dl [facility] Work Phone: POC Specific [place], Urine 1.015 1.005 - 1.035 [facility] Work Phone: POC Urobilinogen, Urine 0.2 0.2, 1.0 EU/DL [facility] Work Phone: [facility] Work Phone: Measure post void residualon 09-17-2023 36cc [facility] Work Phone: [facility] Work Phone: Basic metabolic 2000 panelon 07-23-2023 Anion gap [Moles/Vol] 13 mmol/L 10 - 2 0 mmol/L [facility] Calcium [Mass/Vol] 8.5 mg/dL Low 8.6 - 10. 3 mg/dL [facility] Chloride [Moles/Vol] 108 mmol/L High 98 - 10 7 mmol/L [facility] CO2 [Moles/Vol] 23 mmol/L 21 - 32 mmol/L [facility] Creatinine [Mass/Vol] 0.86 mg/dL 0.50 - 1.30 mg/dL [facility] GFR/1.73 sq M.predicted MDRD (S/P/Bld) [Vol rate/Area] 84 mL/min/{1.73_m2} - PINF [facility] Comment on above: Calculations of leonides mated GFR are performed using the 2020 CKD-EPI Study Refit equation without the race variable for the IDMS-Traceable Creatinine Methods. https://jasn.asnjournals.org/content//ASN.92498 09872 Glucose [Mass/Vol] 92 mg/dL 74 - 99 mg/dL [facility] Interpretation and review of laboratory results Abnormal [facility] Potassium [Moles/Vol] 3.8 mmol/L 3.5 - 5.3 mmol/L [facility] Sodium [Moles/Vol] 140 mmol/L 136 - 145 mmol/L [facility] Urea nitrogen [Mass/Vol] 20 mg/dL 6 - 23 mg/dL [facility] Magnesiumon 07-23-2023 Magnesium [Mass/Vol] 1.66 mg/dL 1.60 - 2.40 mg/dL [facility] Magnesium [Mass/Vol]on 07-23 Interpretation and review of laboratory results Normal [facility] CBC W Auto Differential pane l (Bld)on 07-22-2023 Basophils (Bld) [#/Vol] 0.05 10*3/uL [facility] Basophils/100 WBC (Bld) 0.5 % 0.0 - 2.0 % [facility] Eosinophils (Bld) [#/Vol] 0.15 10*3/uL [facility] Eosinophils/100 WBC (Bld) 1.5 % 0.0 - 6.0 % [facility] Erythrocyte distribution width (RBC) [Ratio] 13.7 % 11.5 - 14.5 % [facility] Hematocrit (Bld) [Volume fraction] 38.7 % Low 41.0 - 52.0 % [facility] Hemoglobin (Bld) [Mass/Vol] 13.1 g/dL Low 13.5 - 17.5 g/dL [facility] Immature granulocytes (Bld) [#/Vol] 0.06 10*3/uL [facility] Immature granulocytes/100 WBC (Bld) 0.6 % 0.0 - 0.9 % [facility] Comment on above: Immature Granulocyte Count (IG) includes promyelocytes, myelocytes and metamyelocytes but does not include bands. Percent differential counts (%) should be interpreted in the context of the absolute cell counts (cells/UL). Interpretation and review of laboratory results Abnormal [facility] Lymphocytes (Bld) [#/Vol] 0.89 10*3/uL [facility] Lymphocytes/100 WBC (Bld) 8.9 % 13.0 - 44.0 % [facility] MCH (RBC) [Entitic mass] 34.0 pg 26.0 - 34.0 pg [facility] MCHC (RBC) [Mass/Vol] 33.9 g/dL 32.0 - 36.0 g/dL [facility] MCV (RBC) [Entitic vol] 101 fL High 80 - 100 fL [facility] Monocytes (Bld) [#/Vol] 0.90 10*3/uL High [facility] Monocytes/100 WBC (Bld) 9.0 % 2.0 - 10.0 % [facility] Neutrophils (Bld) [#/Vol] 7.97 10*3/uL High [facility] Comment on above: Percent differential counts (%) should be interpreted in the context of the absolute cell counts (cells/uL). 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) TIA (transient ischemic attack) (435.9) (G45.9) Hyperlipidemia, unspecified hyperlipidemia type (272.4) (E78.5) Orders Peripheral arterial occlusive disease IO EKG Electrocardiogram- 12 Lead; Status:Complete; Done: [id number] Chief Complaint CAD History of Present [id number] gentleman with a medical history of coronary [...] thigh (719.45) (M25.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) 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) [...] History of Hip replacement L THR, 2018, Felice History Of Prior Surgery Cath of both [...] No falls within the last year -Cardiology- [address] Work Phone: Tobacco use status CPHS b) No -Cardiology- [address] Work Phone: Joint Injection Large/Arthro centesis: R subacromial bursaon 05-31-2023 Don Barrera MD 05/31/2023 3:21 PM Joint Injection Large/Arthrocentesis: R subacromial bursa on 05/31/2023 3:19 PM Indications: pain Details: 25 G needle, posterior approach Medications: 40 mg triamcinolone acetonide 40 mg/mL Outcome: tolerated well, no immediate complications Procedure, treatment alternatives, risks and benefits explained, specific risks discussed. Consent was given by the patient. [facility] Work Phone: [facility] Work Phone: ABD AORTAon 05-10-2023 ABD AORTA Patient Name: FAWN CAMERON STUDY: US ABD AORTA; 05/10/2023 8:22 am INDICATION: known AAA, monitoring for change. COMPARISON: 04/28/2022 ACCESSION NUMBER(S): [id number] ORDERING CLINICIAN: DON BARRERA TECHNIQUE: Transabdominal imaging [...] worsened. Electronically signed by: FRANKIE BOWLES MD [facility] C-REACTIVE PROTEINon 023 C-REACTIVE PROTEIN 0.18 mg/dL [facility] Comment on above: Result Comment: REF VALUE < 1.00 Performed By: #### C RP ####[place] [address] CBC AND DIFFERENTIALon 03-10 % AUTOMATED IMMATURE GRAN 0.4 % Normal 0.0 - 0.9 [facility] Comment on above: Result Comment: Steph ture Granulocyte Count (IG) includes promyelocytes, myelocytes and metamyelocytes but does not include bands. Percent differential counts (%) should be interpreted in the context of the absolute cell counts (cells/L). Performed By: #### C BCDF #### [place] [id number] Basophils (Bld) [#/Vol] 0.06 10*3/uL Normal 0.00 - 0.10 [facility] Comment on above: Performed By: #### C BCDF #### [place] [id number] Basophils/100 WBC (Bld) 0.7 % Normal 0.0 - 2.0 [facility] Comment on above: Performed By: #### C BCDF #### [place] [id number] Eosinophils (Bld) [#/Vol] 0.08 10*3/uL Normal 0.00 - 0.40 [facility] Comment on above: Performed By: #### C BCDF #### [place] [id number] Eosinophils/100 WBC (Bld) 1.0 % Normal 0.0 - 6.0 [facility] Comment on above: Performed By: #### C BCDF #### [place] [id number] Erythrocyte distribution width (RBC) [Ratio] 14.0 % Normal 11.5 - 14.5 [facility] Comment on above: Performed By: #### C BCDF #### [place] [id number] Hematocrit (Bld) [Volume fraction] 42.4 % Normal 41.0 - 52.0 [facility] Comment on above: Performed By: #### C BCDF #### [place] [id number] Hemoglobin (Bld) [Mass/Vol] 14.0 g/dL Normal 13.5 - 17.5 [facility] Comment on above: Performed By: #### C BCDF #### [address] [address] Lymphocytes (Bld) [#/Vol] 0.94 10*3/uL Normal 0.80 - 3.00 [facility] Comment on above: Performed By: #### C BCDF #### [address] [address] Lymphocytes/100 WBC (Bld) 11.4 % Normal 13.0 - 44.0 [facility] Comment on above: Performed By: #### C BCDF #### [address] [address] MCHC (RBC) [Mass/Vol] 33.0 g/dL Normal 32.0 - 36.0 [facility] Comment on above: Performed By: #### C BCDF #### [address] [address] MCV (RBC) [Entitic vol] 99 fL Normal 80 - 100 [facility] Comment on above: Performed By: #### C BCDF #### [address] [address] Monocytes (Bld) [#/Vol] 0.67 10*3/uL Normal 0.05 - 0.80 [facility] Comment on above: Performed By: #### C BCDF #### [address] [address] Monocytes/100 WBC (Bld) 8.1 % Normal 2.0 - 10.0 [facility] Comment on above: Performed By: #### C BCDF #### [address] [address] Neutrophils (Bld) [#/Vol] 6.48 10*3/uL High 1.60 - 5.50 [facility] Comment on above: Result Comment: Perc ent differential counts (%) should be interpreted in the context of the absolute cell counts (cells/L). Performed By: #### C BCDF #### [address] [place] [address] Neutrophils/100 WBC (Bld) 78.4 % Normal 40.0 - 80.0 [facility] Comment on above: Performed By: #### C BCDF #### [address] [address] Platelets (Bld) [#/Vol] 253 10*3/uL Normal 150 - 450 [facility] Comment on above: Performed By: #### C BCDF #### [place] [id number] RBC 4.29 x10E12/L Low 4.50 - 5.90 [facility] Comment on above: Performed By: #### C BCDF #### [address] [address] WBC (Bld) [#/Vol] 8.3 10*3/uL Normal 4.4 - 11.3 [facility] Comment on above: Performed By: #### C BCDF #### [place] [id number] COMPREHENSIVE PANELon 2022 Albumin [Mass/Vol] 4.1 g/dL Normal 3.4 - 5.0 [facility] Comment on above: Performed By: #### C MP #### [address] [address] ALP [Catalytic activity/Vol] 78 U/L Normal 33 - 136 [facility] Comment on above: Performed By: #### C MP #### [address] [address] ALT [Catalytic activity/Vol] 15 U/L Normal 10 - 52 [facility] Comment on above: Result Comment: Nicolette ents treated with Sulfasalazine may generate falsely decreased results for ALT. Performed By: #### C MP #### [address] [address] Anion gap [Moles/Vol] 11 mmol/L Normal - [address] [facility] Comment on above: Performed By: #### C MP #### [place] [id number] AST [Catalytic activity/Vol] 17 U/L Normal 9 - 39 [facility] Comment on above: Performed By: #### C MP #### [address] [address] Bilirubin [Mass/Vol] 0.6 mg/dL Normal 0.0 - 1.2 [facility] Comment on above: Performed By: #### C MP #### [address] [address] Calcium [Mass/Vol] 8.9 mg/dL Normal 8.6 - 10.3 [facility] Comment on above: Performed By: #### C MP #### [address] [address] Chloride [Moles/Vol] 106 mmol/L Normal 98 - 107 [facility] Comment on above: Performed By: #### C MP #### [address] [address] Creatinine [Mass/Vol] 0.89 mg/dL Normal 0.50 - 1.30 [facility] Comment on above: Performed By: #### C MP #### [address] [address] GFR/1.73 sq M.predicted among non-blacks MDRD (S/P/Bld) [Vol rate/Area] 83 mL/min/{1.73_m2} Normal >90 [facility] Comment on above: Result Comment: CALC ULATIONS OF ESTIMATED GFR ARE PERFORMED USING THE 2020 CKD-EPI STUDY REFIT EQUATION WITHOUT THE RACE VARIABLE FOR THE IDMS-TRACEABLE CREATININE METHODS. https://jasn.asnjournals.org/content/early//ASN.26331 86722 Performed By: #### C MP #### [address] [address] Glucose [Mass/Vol] 104 mg/dL High 74 - 99 [facility] Comment on above: Performed By: #### C MP #### [address] [address] HCO3 (Bld) [Moles/Vol] 25 mmol/L Normal 21 - 32 [facility] Comment on above: Performed By: #### C MP #### [address] [address] Potassium [Moles/Vol] 4.1 mmol/L Normal 3.5 - 5.[address] [facility] Comment on above: Performed By: #### C MP #### [address] [address] Protein [Mass/Vol] 6.3 g/dL Low 6.4 - 8.2 [facility] Comment on above: Performed By: #### C MP #### [address] [address] Sodium [Moles/Vol] 138 mmol/L Normal 136 - 145 [facility] Comment on above: Performed By: #### C MP #### [address] [address] Urea nitrogen [Mass/Vol] 18 mg/dL Normal 6 - 23 [facility] Comment on above: Performed By: #### C MP #### [address] [address] CREATINE KINASEon 03-10-2023 CK [Catalytic activity/Vol] 68 U/L Normal 0 - 325 [facility] Comment on above: Performed By: #### C K #### [address] [address] [address] HEAD WO CONTRASTon 2022 CT HEAD WO CONTRAST Patient Name: FAWN CAMERON STUDY: CT HEAD WO CONTRAST 03/10/2023 1:10 pm INDICATION: stable COMPARISON: CT head dated 01/07/2021 ACCESSION NUMBER(S): [id number] ORDERING CLINICIAN: EARLE COTTO TECHNIQUE: Contiguous axial [...] Electronically signed by: JOÃO ZAMORA MD Normal [facility] GLUCOSE-POCTon 03-10-2023 Glucose [Mass/Vol] 98 mg/dL Normal 74 - 99 [facility] Comment on above: Performed By: #### G ROBIN #### [address] [address] LACTATEon 03-10-2023 Lactate [Moles/Vol] 1.1 mmol/L Normal 0.4 - 2.0 [facility] Comment on above: Result Comment: Cha puncture immediately after or during the administration of Metamizole may lead to falsely low results. Testing should be performed immediately prior to Metamizole dosing. 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 L REVERSE TSR; Immunizations Description:SARS-CoV-2 (COVID-19) Description:SARS-CoV-2 (COVID-19) Description:SARS-CoV-2 (COVID-19) Past Medical History Description:Arthritis Description:High BP [...] 10-Mar-2023 13:18: (more content not included)... Normal [facility] Risk Screen - Adult Emergenc yon 03-10-2023 Risk Screen - Adult Emergency Preferred Language: Preferred Language: Preferred Language for Discussing Health Care (patient/designee)Engl peter Patient Preferred Pharmacy: Patient Preferred Pharmacy Statement: [...] instruction; written material Cultural Considerationsnone Developmental Considerationsnone Rastafari Considerationsnone Other Learnersspouse Learning Assessment (Other Learner): Learning Assessment (Other Learner): Other learner availableyes... Learnerspouse Factors Influencing Readiness to Learnn/a Factors that Impact Ability to Learnnone Devices/Methods Used to Communicatenone Learning Preferencesverbal instruction Cultural Considerationsnone Developmental Considerationsnone Rastafari Considerationsnone Pressure Injury/TB/Substance: Pressure Injury: Do you have a coughno Smoking Statusformer smoker Alcohol Usedenies Drug Usedenies Admission Risk Screen: Significant IndicatorsComplete CAGE: CAGE: Is this an injured patient at a Trauma Center ([facility]/[place]): no Electronic Signatures: Jaci Soot (RN) (Signed 10-Mar-2023 12:55) Authored: Preferred Language, Patient Preferred Pharmacy, Advanced Directives, Family Violence Adult, Learning Assessment (Patient), Learning Assessment (Other Learner), Pressure Injury/TB/Substance, Pressure Injury, CAGE Last Updated: 10-Mar-2023 12:55 by Jaci Soto (RN) Normal [facility] TROPONIN I, HIGH SENSITIVITY on 03-10-2023 TROPONIN I, HIGH SENSITIVITY 4 ng/L Normal 0 - 20 [facility] Comment on above: Result Comment: . Less [...] using a different testing methodology at [facility] than at other [facility]. Direct result comparisons should only be made within the same method. Performed By: #### T [facility] #### [facility] [address] [place] [address] Triage - EDon 03-10-2023 Triage - ED Chart Review: PRIMARY ASSESSMENT ABCD Normal Findings: airway open and patent, circulation normal and alert and oriented ARRIVAL INFORMATION Means of Arrival: wheelchair Mode of Arrival: private vehicle Arrival From: home Accompanied By: spouse/significant other Language: Spoken Language Preferred: Angolan Reading Language Preferred: Angolan Present on Arrival: Device Present on Arrival to ED: no CHIEF COMPLAINT FAWN CAMERON is a Male patient with a chief complaint of dizziness (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 [...] BMI (kg/m2): 25.738 Calculated BSA (m2) 1.83 [place]field Coma Scale: Best Eye Response: (E4) spontaneous Best Motor Response: (M6) obeys commands Best Verbal Response: (V5) oriented Hatfield Score: 15 Allergies: no Patient has homicidal [...] Updated: 10-Mar-2023 12:52 by Jaci Soto (ANNA) [facility] Office Visit (Primary Care T xt/Forms)on 10-27-2022 [...] cancer screening Prostate Spec.Ag, Screen; Status:Active; Requested for:[id number]; Hyperlipidemia, unspecified hyperlipidemia type Lipid Panel; Status:Active; Requested for:[id number]; Hypertension, unspecified type Comprehensive Metabolic Panel; Status:Active; Requested for:[id number]; Patient Discussion/Summary Follow-up in 6 months with [...] thigh (719.45) (M25.552) 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) [...] Screening.on 023 Adult depression screening assessment No [employer] [facility] [employer] Phone: Fall risk assessment a) No falls within the last year [employer] [facility] Phone: Tobacco use status CPHS b) No [employer] [facility] [employer] Phone: LDL, Direct, Serumon 023 Cholesterol in LDL [Mass/Vol] 112 mg/dL 0 - 129 [employer] Work Phone: Comment on above: Elevated levels [...] dye [Mass/Vol] 4.1 g/dL 3.4 - 5.0 [employer] [facility] Work Phone: ALP [Catalytic activity/Vol] 85 U/L 33 - 136 [employer] Work Phone: ALT With P-5'-P [Catalytic activity/Vol] 15 U/L 10 - 52 [employer] [facility] [employer] Phone: Comment on above: Patients treated wit h Sulfasalazine may generate falsely decreased results for ALT. Anion gap [Moles/Vol] 12 mmol/L 10 - 20 Lust have it! [facility] Work Phone: AST With P-5'-P [Catalytic activity/Vol] 20 U/L 9 - 39 [facility] Work Phone: Bilirubin [Mass/Vol] 0.8 mg/dL 0.0 - 1.2 [facility] Work Phone: Calcium [Mass/Vol] 9.0 mg/dL 8.6 - 10.3 -[facility] Work Phone: Chloride [Moles/Vol] 106 mmol/L 98 - 107 - [facility] Work Phone: CO2 [Moles/Vol] 26 mmol/L 21 - 32 [facility] Work Phone: Creatinine [Mass/Vol] 0.99 mg/dL See Below [facility] Work Phone: Comment on above: Reference Range: 0.5 0 - 1.30 Glucose [Mass/Vol] 91 mg/dL 74 - 99 -[facility] Work Phone: Potassium [Moles/Vol] 3.9 mmol/L 3.5 - 5.3 [facility] Work Phone: Protein [Mass/Vol] 6.3 g/dL below low threshold 6.4 - 8.2 [facility] Work Phone: Sodium [Moles/Vol] 140 mmol/L 136 - 145 [facility] Work Phone: Urea nitrogen [Mass/Vol] 24 mg/dL above high threshold 6 - 23 [facility] Work Phone: No Panel Informationon 10-24 74 {mL/min/1.73m2} >90 [facility] Work Phone: Comment on above: CALCULATIONS OF LEONIDES MATED GFR ARE PERFORMED USING THE 2020 CKD-EPI STUDY REFIT EQUATION WITHOUT THE RACE VARIABLE FOR THE IDMS-TRACEABLE CREATININE METHODS.https://jasn.asnjournals.org/content//A SN.3645882282 Complete Blood Count + Diffe john 10-03-2022 Basophils/100 WBC (Bld) 0.6 % 0.0 - 2.0 [facility] Work Phone: Erythrocyte distribution width (RBC) [Ratio] 14.1 % See Below [facility] Work Phone: Comment on above: Reference Range: 11. 5 - 14.5 Hematocrit (Bld) [Volume fraction] 41.7 % See Below [facility] Work Phone: Comment on above: Reference Range: 41. 0 - 52.0 Hemoglobin (Bld) [Mass/Vol] 13.6 g/dL See Below [facility] Work Phone: Comment on above: Reference Range: 13. 5 - 17.5 Lymphocytes/100 WBC (Bld) 8.5 % See Below [facility] Work Phone: Comment on above: Reference Range: 13. 0 - 44.0 MCHC (RBC) [Mass/Vol] 32.6 g/dL See Below [facility] Work Phone: Comment on above: Reference Range: 32. 0 - 36.0 MCV (RBC) [Entitic vol] 101 fL above high threshold 80 - 100 [facility] Work Phone: Monocytes/100 WBC (Bld) 8.5 % 2.0 - 10.0 [facility] Work Phone: Neutrophils/100 WBC (Bld) 79.6 % See Below [facility] Work Phone: Comment on above: Reference Range: 40. 0 - 80.0 Platelets (Bld) [#/Vol] 249 10*3/uL 150 - 450 [facility] Work Phone: RBC (Bld) [#/Vol] 4.15 {x10E12/L} below low threshold See Below [facility] Work Phone: Comment on above: Reference Range: 4.5 0 - 5.90 WBC (Bld) [#/Vol] 9.7 10*3/uL 4.4 - 11.3 [facility] Work Phone: Complete Blood Count + Differential 0.06 {x10E9/L} See Below [facility] Work Phone: Comment on above: Reference Range: 0.0 0 - 0.10 Complete Blood Count + Differential 0.21 {x10E9/L} See Below [facility] Work Phone: Comment on above: Reference Range: 0.0 0 - 0.40 Complete Blood Count + Differential 0.83 {x10E9/L} See Below [facility] Work Phone: Comment on above: Reference Range: 0.0 5 - 0.80 Reference Range: 0.8 0 - 3.00 Complete Blood Count + Differential 7.72 {x10E9/L} above high threshold See Below [facility] Work Phone: Comment on above: Reference Range: 1.6 0 - 5.50 Percent differential counts (%) should be interpreted in the context of the absolute cell counts (cells/L). Complete Blood Count + Differential 2.2 % 0.0 - 6.0 [facility] Work Phone: Complete Blood Count + Differential 0.6 % 0.0 - 0.9 [facility] Work Phone: Comment on above: Immature Granulocyte Count (IG) includes promyelocytes, myelocytes and metamyelocytes but does not include bands. Percent differential counts (%) should be interpreted in the context of the absolute cell counts (cells/L). Laboratory - Chemistry and C hemistry - challengeon 10-03-2022 Albumin BCP dye [Mass/Vol] 3.8 g/dL 3.4 - 5.0 [facility] Work Phone: ALP [Catalytic activity/Vol] 92 U/L 33 - 136 [facility] Work Phone: ALT With P-5'-P [Catalytic activity/Vol] 14 U/L 10 - 52 [facility] Work Phone: Comment on above: Patients treated wit h Sulfasalazine may generate falsely decreased results for ALT. Anion gap [Moles/Vol] 10 mmol/L 10 - 20 - [facility] Work Phone: AST With P-5'-P [Catalytic activity/Vol] 15 U/L 9 - 39 [facility] Work Phone: Bilirubin [Mass/Vol] 0.6 mg/dL 0.0 - 1.2 - [facility] Work Phone: Calcium [Mass/Vol] 8.5 mg/dL below low threshold 8.6 - 10.3 -[facility] Work Phone: Chloride [Moles/Vol] 106 mmol/L 98 - 107 [facility] Work Phone: CO2 [Moles/Vol] 27 mmol/L 21 - 32 [facility] Work Phone: Creatinine [Mass/Vol] 0.91 mg/dL See Below - [facility] Work Phone: Comment on above: Reference Range: 0.5 0 - 1.30 Glucose [Mass/Vol] 96 mg/dL 74 - 99 -[facility] Work Phone: Potassium [Moles/Vol] 4.1 mmol/L 3.5 - 5.3 - [facility] Work Phone: Protein [Mass/Vol] 5.8 g/dL below low threshold 6.4 - 8.2 [facility] Work Phone: Sodium [Moles/Vol] 139 mmol/L 136 - 145 [employer] [facility] Work Phone: Urea nitrogen [Mass/Vol] 21 mg/dL 6 - 23 [employer] [facility] Work Phone: No Panel Informationon 10-03 82 {mL/min/1.73m2} >90 [employer] [facility] Work Phone: Comment on above: CALCULATIONS OF LEONIDES MATED GFR ARE PERFORMED USING THE 2020 CKD-EPI STUDY REFIT EQUATION WITHOUT THE RACE VARIABLE FOR THE IDMS-TRACEABLE CREATININE METHODS.https://jasn.asnjournals.org/content/early//A SN.7618515889 CHEST 2 VIEW PA AND LATon CHEST 2 VIEW PA AND LAT STUDY: Chest Radiographs; 09/23/2022 9:39 AM INDICATION: Cough for two weeks status post COVID 09/01. COMPARISON: Chest, single portable view obtained on 04/11/2018 at 08:52:00 hours. ACCESSION NUMBER(S): [id number] ORDERING CLINICIAN: HEIKE ADAMS CNP TECHNIQUE: Frontal [...] MD Electronically signed by: RUSSELL COLEMAN MD [facility] Provider Note - ED v3on 12-0 Provider Note - ED v3 Provider Note: Chart Review: ED NOTES ED NOTES: Patient presents for evaluation of cough that has been ongoing for the past few weeks. Pt was diagnosed with COVID 19 on 09/01. States cough is no productive, denies any other symptoms. Did see Dr aBrrera a few days ago and was prescribed [...] Vital Sign Value Date PAST MEDICAL HISTORY ALLERGIES/INTOLERANCES : No Known Allergies HEALTH HISTORY: Medical History Name:CAD (coronary artery disease) Code:I25.10 Name:GERD (gastroesophageal reflux disease) Code:K21.9 Name:Hypertension Code:I10 Name:Hypercholesterole melody Code:E78.00 Name:PAD (peripheral artery disease) Code:I73.9 OUTPATIENT [...] Procedure Additional Notes:1. L REVERSE TSR; Immunizations Description:SARS-CoV-2 (COVID-19) Description:SARS-CoV-2 (COVID-19) Description:SARS-CoV-2 (COVID-19) Past Medical History Description:Arthritis Description:High BP [...] SIGNS: T PRBP SpO2O2(LPM) %FiO2 Method 23-Sep-2022 08:31:[id number] 5 96 MDM MDM/ED COURSE: Discussed Findings with: [...] ill patient: no Electronic Signatures: Heike Adams ([employer]) (Signed 23-Sep-2022 10:09) Authored: ED Notes, HPI, PMH, ROS, PE, Results/Vital Signs, MDM/ED Course, Clinical Impression, Attestation, Chart Review, Scores Last Updated: 23-Sep-2022 10:09 by Daniella (more content not included)... Normal [facility] Tobacco Screening.on Fall risk assessment a) No falls within the last year [facility] [place] [address] Work Phone: Tobacco use status [facility] b) No [facility] [place] [address] Work Phone: IO UA (automated w/o microsc opy)on 05-17-2022 Protein (U) [Mass/Vol] Negative [facility] [place] [address] Work Phone: IO UA (automated w/o microscopy) Negative [facility] [place] [address] Work Phone: IO UA (automated w/o microscopy) Normal (0.2-1.0 mg/dl) [facility]- [address] Work Phone: IO UA (automated w/o microscopy) 5.0 1 [facility] [address] Work Phone: IO UA (automated w/o microscopy) 1.020 1 [facility] [address] Work Phone: IO UA (automated w/o microscopy) Clear [facility] [address] Work Phone: IO UA (automated w/o microscopy) Yellow [facility] Work Phone: Tobacco Screening.on Adult depression screening assessment No [facility]- [address] Work Phone: Fall risk assessment a) No falls within the last year [facility] [address] Work Phone: Tobacco use status [facility] b) No [facility] [place] [address] Work Phone: Tobacco Screening.on Adult depression screening assessment No [facility] Work Phone: Fall risk assessment a) No falls within the last year [facility] Work Phone: Tobacco use status [facility] b) No [facility] Work Phone: Complete Blood Count + Diffe john 04-21-2022 Basophils/100 WBC (Bld) 1.0 % 0.0 - 2.0 -[facility] Work Phone: Erythrocyte distribution width (RBC) [Ratio] 14.3 % See Below [facility] Work Phone: Comment on above: Reference Range: 11. 5 - 14.5 Hematocrit (Bld) [Volume fraction] 38.2 % below low threshold See Below [facility] Work Phone: Comment on above: Reference Range: 41. 0 - 52.0 Hemoglobin (Bld) [Mass/Vol] 12.9 g/dL below low threshold See Below [facility] Work Phone: Comment on above: Reference Range: 13. 5 - 17.5 Lymphocytes/100 WBC (Bld) 19.7 % See Below [facility] Work Phone: Comment on above: Reference Range: 13. 0 - 44.0 MCHC (RBC) [Mass/Vol] 33.9 g/dL See Below [facility] Work Phone: Comment on above: Reference Range: 32. 0 - 36.0 MCV (RBC) [Entitic vol] 99 fL 80 - 100 -[facility] Work Phone: Monocytes/100 WBC (Bld) 7.8 % 2.0 - 10.0 [employer] [facility] Work Phone: Neutrophils/100 WBC (Bld) 65.9 % See Below [facility] Work Phone: Comment on above: Reference Range: 40. 0 - 80.0 Platelets (Bld) [#/Vol] 251 10*3/uL 150 - 450 [employer] [facility] Work Phone: RBC (Bld) [#/Vol] 3.87 {x10E12/L} below low threshold See Below [facility] Work Phone: Comment on above: Reference Range: 4.5 0 - 5.90 WBC (Bld) [#/Vol] 7.0 10*3/uL 4.4 - 11.3 [facility] Work Phone: Complete Blood Count + Differential 0.10 {x10E9/L} See Below [facility] Work Phone: Comment on above: Reference Range: 0.0 0 - 0.10 Complete Blood Count + Differential 0.40 {x10E9/L} See Below [facility] Work Phone: Comment on above: Reference Range: 0.0 0 - 0.40 Complete Blood Count + Differential 0.60 {x10E9/L} See Below [facility] Work Phone: Comment on above: Reference Range: 0.0 5 - 0.80 Complete Blood Count + Differential 1.40 {x10E9/L} See Below [facility] Work Phone: Comment on above: Reference Range: 0.8 0 - 3.00 Complete Blood Count + Differential 4.60 {x10E9/L} See Below [facility] Work Phone: Comment on above: Reference Range: 1.6 0 - 5.50 Percent differential counts (%) should be interpreted in the context of the absolute cell counts (cells/L). Complete Blood Count + Differential 5.6 % 0.0 - 6.0 [facility] Work Phone: Complete Blood Count + Differential 0.2 {/100_WBC} [facility] Work Phone: Laboratory - Chemistry and C hemistry - challengeon 04-21-2022 Albumin BCP dye [Mass/Vol] 3.8 g/dL 3.4 - 5.0 [facility] Work Phone: ALP [Catalytic activity/Vol] 71 U/L 33 - 136 [facility] Work Phone: ALT With P-5'-P [Catalytic activity/Vol] 13 U/L 10 - 52 [facility] Work Phone: Comment on above: Patients treated wit h Sulfasalazine may generate falsely decreased results for ALT. Anion gap [Moles/Vol] 10 mmol/L 10 - 20 [facility] Work Phone: AST With P-5'-P [Catalytic activity/Vol] 16 U/L 9 - 39 [facility] Work Phone: Bilirubin [Mass/Vol] 0.8 mg/dL 0.0 - 1.2 - [facility] Work Phone: Calcium [Mass/Vol] 8.5 mg/dL below low threshold 8.6 - 10.3 [facility] Work Phone: Chloride [Moles/Vol] 110 mmol/L above high threshold 98 - 107 [facility] Work Phone: CO2 [Moles/Vol] 25 mmol/L 21 - 32 -[facility] Work Phone: Creatinine [Mass/Vol] 0.91 mg/dL See Below - [facility] Work Phone: Comment on above: Reference Range: 0.5 0 - 1.30 Glucose [Mass/Vol] 87 mg/dL 74 - 99 -[facility] Work Phone: Potassium [Moles/Vol] 4.1 mmol/L 3.5 - 5.3 - [facility] Work Phone: Protein [Mass/Vol] 5.5 g/dL below low threshold 6.4 - 8.2 [facility] Work Phone: Sodium [Moles/Vol] 141 mmol/L 136 - 145 -[facility] [employer] [facility] Work Phone: Urea nitrogen [Mass/Vol] 29 mg/dL above high threshold 6 - 23 [employer] [facility] Work Phone: Lipid Panelon 04-21-2022 Cholesterol [Mass/Vol] 127 mg/dL 0 - 199 [employer] [facility] Work Phone: Comment on above: [...] dosing. Cholesterol in HDL [Mass/Vol] 42.0 mg/dL [employer] [facility] Work Phone: Comment on above: . AGE VERY LOW LOW N ORMAL HIGH 0-19 Y < 35 < 40 40-45 ---- 20-24 Y ---- < 40 >45 ---- >24 Y ---- < 40 40-60 >60. Cholesterol in LDL [Mass/Vol] 73 mg/dL 0 - 99 [employer] [facility] Work Phone: Comment on above: . NEAR BORD AGE CHERYL RABLE OPTIMAL HIGH HIGH VERY HIGH 0-19 Y 0 - 109 --- 110-129 >/= 130 ---- 20-24 Y 0 - 119 --- 120-159 >/= 160 ---- >24 Y 0 - 99 100-129 130-159 160-189 >/=190. Cholesterol.total/Chol esterol in HDL [Mass ratio] 3.0 {ratio} [employer] [facility] Work Phone: Comment on above: REF VALUESDESIRABLE < 3.4HIGH RISK > 5.0 Triglyceride [Mass/Vol] 60 mg/dL 0 - 149 [employer] [facility] Work Phone: Comment on above: [...] Lipid Panel 12 mg/dL 0 - 40 [employer] [facility] Work Phone: No Panel Informationon 04-21 82 {mL/min/1.73m2} >90 [email or web address] [employer] [facility] Work Phone: Comment on above: CALCULATIONS OF LEONIDES MATED GFR ARE PERFORMED USING THE 2020 CKD-EPI STUDY REFIT EQUATION WITHOUT THE RACE VARIABLE FOR THE IDMS-TRACEABLE CREATININE METHODS.https://jasn.asnjournals.org/content//A SN.2393856556 Prostate Spec.Ag, Screenon 0 04-21-2022 Prostate specific Ag [Mass/Vol] 0.29 ng/mL See Below [facility] Work Phone: Comment on above: Reference Range: 0.0 0 - 4.00The FDA requires that the method used for PSA assay be reported to the physician. Values obtained with different assay methods must not be used interchangeably. This testwas performed at [facility] using the marker.tobritech PSA assay is a two-site immunoenzymatic sandwich assay. The assay is approved for measurement of prostate-specific antigen (PSA)in serum and may be used in conjunction with a digital rectal examination in men 50 years and older as an aid in detection of prostate cancer.9-Gwimo-xdtrroxlh inhibitors (e.g. Proscar, Finasteride, Avodart, Dutasteride and Suzy) for the treatment of BPH have been shown to lower PSA levels by an average of 50% after 6 months of treatment. Vitamin B12, Serumon 022 Cobalamin (Vitamin B12) [Mass/Vol] 686 pg/mL 211 - 911 [facility] Work Phone: Complete Blood Count + Diffe rentialon 03-31-2022 Basophils/100 WBC (Bld) 0.9 % 0.0 - 2.0 [facility] Work Phone: Erythrocyte distribution width (RBC) [Ratio] 14.0 % See Below [facility] Work Phone: Comment on above: Reference Range: 11. 5 - 14.5 Hematocrit (Bld) [Volume fraction] 39.8 % below low threshold See Below [facility] Work Phone: Comment on above: Reference Range: 41. 0 - 52.0 Hemoglobin (Bld) [Mass/Vol] 13.6 g/dL See Below [facility] Work Phone: Comment on above: Reference Range: 13. 5 - 17.5 Lymphocytes/100 WBC (Bld) 15.8 % See Below [facility] Work Phone: Comment on above: Reference Range: 13. 0 - 44.0 MCHC (RBC) [Mass/Vol] 34.3 g/dL See Below [facility] Work Phone: Comment on above: Reference Range: 32. 0 - 36.0 MCV (RBC) [Entitic vol] 98 fL 80 - 100 [employer] [facility] Work Phone: Monocytes/100 WBC (Bld) 8.8 % 2.0 - 10.0 [facility] Work Phone: Neutrophils/100 WBC (Bld) 71.4 % See Below [employer] [facility] Work Phone: Comment on above: Reference Range: 40. 0 - 80.0 Platelets (Bld) [#/Vol] 266 10*3/uL 150 - 450 [facility] Work Phone: RBC (Bld) [#/Vol] 4.05 {x10E12/L} below low threshold See Below [facility] Work Phone: Comment on above: Reference Range: 4.5 0 - 5.90 WBC (Bld) [#/Vol] 7.3 10*3/uL 4.4 - 11.3 [facility] Work Phone: Complete Blood Count + Differential 0.10 {x10E9/L} See Below [facility] Work Phone: Comment on above: Reference Range: 0.0 0 - 0.10 Complete Blood Count + Differential 0.20 {x10E9/L} See Below [facility] Work Phone: Comment on above: Reference Range: 0.0 0 - 0.40 Complete Blood Count + Differential 0.60 {x10E9/L} See Below [facility] Work Phone: Comment on above: Reference Range: 0.0 5 - 0.80 Complete Blood Count + Differential 1.20 {x10E9/L} See Below [facility] Work Phone: Comment on above: Reference Range: 0.8 0 - 3.00 Complete Blood Count + Differential 5.20 {x10E9/L} See Below [facility] Work Phone: Comment on above: Reference Range: 1.6 0 - 5.50 Percent differential counts (%) should be interpreted in the context of the absolute cell counts (cells/L). Complete Blood Count + Differential 3.1 % 0.0 - 6.0 [facility] Work Phone: Laboratory - Chemistry and C hemistry - challengeon 03-31-2022 Albumin BCP dye [Mass/Vol] 4.1 g/dL 3.4 - 5.0 [facility] Work Phone: ALP [Catalytic activity/Vol] 80 U/L 33 - 136 [facility] Work Phone: ALT With P-5'-P [Catalytic activity/Vol] 13 U/L 10 - 52 -[facility] Work Phone: Comment on above: Patients treated wit h Sulfasalazine may generate falsely decreased results for ALT. Anion gap [Moles/Vol] 10 mmol/L 10 - 20 - [facility] Work Phone: AST With P-5'-P [Catalytic activity/Vol] 16 U/L 9 - 39 [facility] Work Phone: Bilirubin [Mass/Vol] 0.8 mg/dL 0.0 - 1.2 [facility] Work Phone: Calcium [Mass/Vol] 8.8 mg/dL 8.6 - 10.3 [facility] Work Phone: Chloride [Moles/Vol] 105 mmol/L 98 - 107 [facility] Work Phone: CO2 [Moles/Vol] 27 mmol/L 21 - 32 [facility] Work Phone: Creatinine [Mass/Vol] 0.92 mg/dL See Below - [facility] Work Phone: Comment on above: Reference Range: 0.5 0 - 1.30 Glucose [Mass/Vol] 87 mg/dL 74 - 99 -[facility] Work Phone: Potassium [Moles/Vol] 4.1 mmol/L 3.5 - 5.3 - [facility] Work Phone: Protein [Mass/Vol] 5.9 g/dL below low threshold 6.4 - 8.2 [employer] Work Phone: Sodium [Moles/Vol] 138 mmol/L 136 - 145 [employer] [facility] Work Phone: Urea nitrogen [Mass/Vol] 23 mg/dL 6 - 23 [employer] Work Phone: No Panel Informationon 03-31 81 {mL/min/1.73m2} >90 [employer] [facility] Work Phone: Comment on above: CALCULATIONS OF LEONIDES MATED GFR ARE PERFORMED USING THE 2020 CKD-EPI STUDY REFIT EQUATION WITHOUT THE RACE VARIABLE FOR THE IDMS-TRACEABLE CREATININE METHODS.https://jasn.asnjournals.org/content/early//A SN.2392957562 Tobacco Screening.on 022 Adult depression screening assessment No [facility] Work Phone: Fall risk assessment a) No falls within the last year [facility] Work Phone: Tobacco use status CPHS b) No [facility] Work Phone: Radiologyon 11-17-2021 XR Femur 2 Views Normal [facility] Work Phone: Tobacco Screening.on 022 Fall risk assessment a) No falls within the last year [facility] Work Phone: Tobacco use status CPHS b) No [facility] Work Phone: MRI L Spine without Contrast on 10-06-2021 MR Lumbar spine WO contrast Normal [facility] Work Phone: Complete Blood Count + Diffe rentialon 10-04-2021 Basophils/100 WBC (Bld) 0.6 % 0.0 - 2.0 [employer] Work Phone: Erythrocyte distribution width (RBC) [Ratio] 13.9 % See Below [email or web address] [facility] Work Phone: Comment on above: Reference Range: 11. 5 - 14.5 Hematocrit (Bld) [Volume fraction] 40.7 % below low threshold See Below [facility] Work Phone: Comment on above: Reference Range: 41. 0 - 52.0 Hemoglobin (Bld) [Mass/Vol] 13.5 g/dL See Below [facility] Work Phone: Comment on above: Reference Range: 13. 5 - 17.5 Lymphocytes/100 WBC (Bld) 12.1 % See Below [facility] Work Phone: Comment on above: Reference Range: 13. 0 - 44.0 MCHC (RBC) [Mass/Vol] 33.2 g/dL See Below [facility] Work Phone: Comment on above: Reference Range: 32. 0 - 36.0 MCV (RBC) [Entitic vol] 101 fL above high threshold 80 - 100 [facility] Work Phone: Monocytes/100 WBC (Bld) 10.2 % 2.0 - 10.0 [facility] Work Phone: Neutrophils/100 WBC (Bld) 75.1 % See Below [facility] Work Phone: Comment on above: Reference Range: 40. 0 - 80.0 Platelets (Bld) [#/Vol] 251 10*3/uL 150 - 450 [facility] Work Phone: RBC (Bld) [#/Vol] 4.04 {x10E12/L} below low threshold See Below [facility] Work Phone: Comment on above: Reference Range: 4.5 0 - 5.90 WBC (Bld) [#/Vol] 7.1 10*3/uL 4.4 - 11.3 [facility] Work Phone: Complete Blood Count + Differential 0.00 {x10E9/L} See Below [facility] Work Phone: Comment on above: Reference Range: 0.0 0 - 0.10 Complete Blood Count + Differential 0.10 {x10E9/L} See Below [facility] Work Phone: Comment on above: Reference Range: 0.0 0 - 0.40 Complete Blood Count + Differential 0.70 {x10E9/L} See Below [facility] Work Phone: Comment on above: Reference Range: 0.0 5 - 0.80 Complete Blood Count + Differential 0.90 {x10E9/L} See Below [facility] Work Phone: Comment on above: Reference Range: 0.8 0 - 3.00 Complete Blood Count + Differential 5.30 {x10E9/L} See Below [facility] Work Phone: Comment on above: Reference Range: 1.6 0 - 5.50 Percent differential counts (%) should be interpreted in the context of the absolute cell counts (cells/L). Complete Blood Count + Differential 2.0 % 0.0 - 6.0 [facility] Work Phone: Complete Blood Count + Differential 0.1 {/100_WBC} [facility] Work Phone: Laboratory - Chemistry and C hemistry - challengeon 10-04-2021 Albumin BCP dye [Mass/Vol] 3.8 g/dL 3.4 - 5.0 [facility] Work Phone: ALP [Catalytic activity/Vol] 63 U/L 33 - 136 [facility] Work Phone: ALT With P-5'-P [Catalytic activity/Vol] 16 U/L 10 - 52 [facility] Work Phone: Comment on above: Patients treated wit h Sulfasalazine may generate falsely decreased results for ALT. Anion gap [Moles/Vol] 8 mmol/L below low threshold 10 - 20 [facility] Work Phone: AST With P-5'-P [Catalytic activity/Vol] 19 U/L 9 - 39 [facility] Work Phone: Bilirubin [Mass/Vol] 0.8 mg/dL 0.0 - 1.2 [facility] Work Phone: Calcium [Mass/Vol] 8.6 mg/dL 8.6 - 10.3 [facility] Work Phone: Chloride [Moles/Vol] 106 mmol/L 98 - 107 [facility] Work Phone: CO2 [Moles/Vol] 28 mmol/L 21 - 32 [facility] Work Phone: Creatinine [Mass/Vol] 0.89 mg/dL See Below [facility] Work Phone: Comment on above: Reference Range: 0.5 0 - 1.30 Glucose [Mass/Vol] 84 mg/dL 74 - 99 [facility] Work Phone: Potassium [Moles/Vol] 3.8 mmol/L 3.5 - 5.3 [facility] Work Phone: Protein [Mass/Vol] 5.7 g/dL below low threshold 6.4 - 8.2 [facility] Work Phone: Sodium [Moles/Vol] 138 mmol/L 136 - 145 [facility] [employer] [facility] Work Phone: Urea nitrogen [Mass/Vol] 23 mg/dL 6 - 23 [facility] Work Phone: No Panel Informationon 10-04 >60 >60 [facility] Work Phone: Comment on above: CALCULATIONS OF LEONIDES MATED GFR ARE PERFORMED USING THE MDRD STUDY EQUATION FOR THE IDMS-TRACEABLE CREATININE METHODS. CLIN CHEM 2007;53:766-72 Tobacco Screening.on Fall risk assessment a) No falls within the last year [facility] Work Phone: Tobacco use status [facility] b) No [facility] Work Phone: IO UA (automated w/o microsc opy)on 05-18-2021 Protein (U) [Mass/Vol] Negative MP -Urology-[facility] Work Phone: IO UA (automated w/o microscopy) Negative ZP-Cepahxk-Hkc [facility] Work Phone: IO UA (automated w/o microscopy) Normal (0.2-1.0 mg/dl) MP-Urolog y-[facility] Work Phone: IO UA (automated w/o microscopy) 5.5 1 RZ-[facility]gr[facility]zb-[place] Work Phone: IO UA (automated w/o microscopy) 1.030 1 AD-Rqwnqos-Wdf [facility] Work Phone: IO UA (automated w/o microscopy) Clear DY-Fmigkao-[facility] Work Phone: IO UA (automated w/o microscopy) Yellow HI-Cjoardq-[facility] Work Phone: Tobacco Screening.on Fall risk assessment a) No falls within the last year VE-Msfjejw-Ivq [facility] Work Phone: Tobacco use status [facility] b) No EZ-Ebobrss-Iei [facility] Work Phone: LDL, Direct, Serumon Cholesterol in LDL [Mass/Vol] 100 mg/dL 0 - 129 [facility] Work Phone: Comment on above: Elevated levels [...] [Mass/Vol] 3.8 g/dL 3.4 - 5.0 [facility] Work Phone: ALP [Catalytic activity/Vol] 61 U/L 33 - 136 [facility] Work Phone: ALT With P-5'-P [Catalytic activity/Vol] 19 U/L 10 - 52 [facility] Work Phone: Comment on above: Patients treated wit h Sulfasalazine may generate falsely decreased results for ALT. Anion gap [Moles/Vol] 11 mmol/L 10 - 20 [facility] Work Phone: AST With P-5'-P [Catalytic activity/Vol] 19 U/L 9 - 39 -[facility] Work Phone: Bilirubin [Mass/Vol] 0.9 mg/dL 0.0 - 1.2 - [facility] Work Phone: Calcium [Mass/Vol] 8.3 mg/dL below low threshold 8.6 - 10.3 -[facility] Work Phone: Chloride [Moles/Vol] 109 mmol/L above high threshold 98 - 107 -[facility] Work Phone: CO2 [Moles/Vol] 25 mmol/L 21 - 32 -[facility] Work Phone: Creatinine [Mass/Vol] 0.93 mg/dL See Below - [facility] Work Phone: Comment on above: Reference Range: 0.5 0 - 1.30 Glucose [Mass/Vol] 90 mg/dL 74 - 99 -[facility] Work Phone: Potassium [Moles/Vol] 3.9 mmol/L 3.5 - 5.3 - [facility] Work Phone: Protein [Mass/Vol] 5.5 g/dL below low threshold 6.4 - 8.2 [facility] Work Phone: Sodium [Moles/Vol] 141 mmol/L 136 - 145 -[facility] Work Phone: Urea nitrogen [Mass/Vol] 26 mg/dL above high threshold 6 - 23 [facility] Work Phone: No Panel Informationon 05-11 >60 >60 [facility] Work Phone: Comment on above: CALCULATIONS OF LEONIDES MATED GFR ARE PERFORMED USING THE MDRD STUDY EQUATION FOR THE IDMS-TRACEABLE CREATININE METHODS. CLIN CHEM 2007;53:766-72 Prostate Spec.Ag, Screenon 0 05-11-2021 Prostate specific Ag [Mass/Vol] 0.25 ng/mL See Below [facility] Work Phone: Comment on above: Reference Range: 0.0 0 - 4.00The FDA requires that the method used for PSA assay be reported to the physician. Values obtained with different assay methods must not be used interchangeably. This testwas performed [facility] using the Access FeedMagnet[employer]itech PSA assay is a two-site immunoenzymatic sandwich assay. The assay is approved for measurement of prostate-specific antigen (PSA)in serum and may be used in conjunction with a digital rectal examination in men 50 years and older as an aid in detection of prostate cancer.0-Aoxju-csajxbzwz inhibitors (e.g. Proscar, Finasteride, Avodart, Dutasteride and Suzy) for the treatment of BPH have been shown to lower PSA levels by an average of 50% after 6 months of treatment. Ultrasound Abdomen Aortaon 0 05-11-2021 Ultrasound Abdomen Aorta Normal [facility] Work Phone: Ultrasound Abdomen Aorta Please click on the link to view the study images Normal [facility] Work Phone: ECG [id number] By: Heather Paredes on 05-09-2021 Atrial Rate [facility] P [place] [facility] P-R Interval [facility] Q-T Interval [facility] Q-T Interval (corrected) [facility] QRS Duration [facility] QTC Calculation (Bezet) [facility] R [place] [facility] T [place] [facility] Ventricular Rate [facility] Tobacco Screening.on 021 Fall risk assessment a) No falls within the last year -[facility] Work Phone: Tobacco use status [facility] b) No -[facility] Work Phone: Complete Blood Count + Diffe john 04-19-2021 Basophils/100 WBC (Bld) 0.4 % 0.0 - 2.0 -[facility] Work Phone: Erythrocyte distribution width (RBC) [Ratio] 13.4 % See Below [facility] Work Phone: Comment on above: Reference Range: 11. 5 - 14.5 Hematocrit (Bld) [Volume fraction] 41.4 % See Below [facility] Work Phone: Comment on above: Reference Range: 41. 0 - 52.0 Hemoglobin (Bld) [Mass/Vol] 13.6 g/dL See Below [facility] Work Phone: Comment on above: Reference Range: 13. 5 - 17.5 Lymphocytes/100 WBC (Bld) 11.6 % See Below [facility] Work Phone: Comment on above: Reference Range: 13. 0 - 44.0 MCHC (RBC) [Mass/Vol] 32.9 g/dL See Below [facility] Work Phone: Comment on above: Reference Range: 32. 0 - 36.0 MCV (RBC) [Entitic vol] 101 fL above high threshold 80 - 100 [employer] [facility] Work Phone: Monocytes/100 WBC (Bld) 7.3 % 2.0 - 10.0 [facility] Work Phone: Neutrophils/100 WBC (Bld) 78.9 % See Below [facility] Work Phone: Comment on above: Reference Range: 40. 0 - 80.0 Platelets (Bld) [#/Vol] 214 10*3/uL 150 - 450 -[facility] Work Phone: RBC (Bld) [#/Vol] 4.10 {x10E12/L} below low threshold See Below [facility] Work Phone: Comment on above: Reference Range: 4.5 0 - 5.90 WBC (Bld) [#/Vol] 7.2 10*3/uL 4.4 - 11.3 [facility] Work Phone: Complete Blood Count + Differential 0.00 {x10E9/L} See Below [facility] Work Phone: Comment on above: Reference Range: 0.0 0 - 0.10 Complete Blood Count + Differential 0.10 {x10E9/L} See Below [facility] Work Phone: Comment on above: Reference Range: 0.0 0 - 0.40 Complete Blood Count + Differential 0.50 {x10E9/L} See Below [facility] Work Phone: Comment on above: Reference Range: 0.0 5 - 0.80 Complete Blood Count + Differential 0.80 {x10E9/L} See Below [facility] Work Phone: Comment on above: Reference Range: 0.8 0 - 3.00 Complete Blood Count + Differential 5.70 {x10E9/L} above high threshold See Below [facility] Work Phone: Comment on above: Reference Range: 1.6 0 - 5.50 Percent differential counts (%) should be interpreted in the context of the absolute cell counts (cells/L). Complete Blood Count + Differential 1.8 % 0.0 - 6.0 [facility] Work Phone: Complete Blood Count + Differential 0.2 {/100_WBC} [facility] Work Phone: Laboratory - Chemistry and C hemistry - challengeon 04-19-2021 Albumin BCP dye [Mass/Vol] 3.8 g/dL 3.4 - 5.0 -[facility] Work Phone: ALP [Catalytic activity/Vol] 64 U/L 33 - 136 -[facility] Work Phone: ALT With P-5'-P [Catalytic activity/Vol] 23 U/L 10 - 52 -[facility] Work Phone: Comment on above: Patients treated wit h Sulfasalazine may generate falsely decreased results for ALT. Anion gap [Moles/Vol] 10 mmol/L 10 - 20 - [facility] Work Phone: AST With P-5'-P [Catalytic activity/Vol] 21 U/L 9 - 39 -Medical [facility] Work Phone: Bilirubin [Mass/Vol] 0.7 mg/dL 0.0 - 1.2 - edical [facility] Work Phone: Calcium [Mass/Vol] 8.6 mg/dL 8.6 - 10.3 -Med ical [facility] Work Phone: Chloride [Moles/Vol] 106 mmol/L 98 - 107 - edical [facility] Work Phone: CO2 [Moles/Vol] 25 mmol/L 21 - 32 -Medica l [facility] Work Phone: Creatinine [Mass/Vol] 0.94 mg/dL See Below - [facility] Work Phone: Comment on above: Reference Range: 0.5 0 - 1.30 Glucose [Mass/Vol] 152 mg/dL above high threshold 74 - 99 [facility] Work Phone: Potassium [Moles/Vol] 3.8 mmol/L 3.5 - 5.3 - [facility] Work Phone: Protein [Mass/Vol] 5.6 g/dL below low threshold 6.4 - 8.2 -Medical [employer] [facility] Work Phone: Sodium [Moles/Vol] 137 mmol/L 136 - 145 [employer] [facility] Work Phone: Urea nitrogen [Mass/Vol] 22 mg/dL 6 - 23 [facility] Work Phone: No Panel Informationon 04-19 >60 >60 [facility] Work Phone: Comment on above: CALCULATIONS OF LEONIDES MATED GFR ARE PERFORMED USING THE MDRD STUDY EQUATION FOR THE IDMS-TRACEABLE CREATININE METHODS. CLIN CHEM 2007;53:766-72 Laboratory - Chemistry and C hemistry - challengeon 04-13-2021 Albumin BCP dye [Mass/Vol] 3.8 g/dL 3.4 - 5.0 [facility] Work Phone: ALP [Catalytic activity/Vol] 68 U/L 33 - 136 [facility] [employer] [facility] Work Phone: ALT With P-5'-P [Catalytic activity/Vol] 27 U/L 10 - 52 [facility] Work Phone: Comment on above: Patients treated wit h Sulfasalazine may generate falsely decreased results for ALT. Anion gap [Moles/Vol] 9 mmol/L below low threshold 10 - 20 -[facility] Work Phone: AST With P-5'-P [Catalytic activity/Vol] 23 U/L 9 - 39 [facility] Work Phone: Bilirubin [Mass/Vol] 0.8 mg/dL 0.0 - 1.2 [facility] [employer] [facility] Work Phone: Calcium [Mass/Vol] 8.6 mg/dL 8.6 - 10.3 [employer] [facility] Work Phone: Chloride [Moles/Vol] 107 mmol/L 98 - 107 MP- edical [employer] [facility] Work Phone: CO2 [Moles/Vol] 27 mmol/L 21 - 32 -[facility] l [facility] Work Phone: Creatinine [Mass/Vol] 0.92 mg/dL See Below - Medical [employer] [facility] Work Phone: Comment on above: Reference Range: 0.5 0 - 1.30 Glucose [Mass/Vol] 88 mg/dL 74 - 99 -[employer] [facility] [employer] [facility] Work Phone: Potassium [Moles/Vol] 4.0 mmol/L 3.5 - 5.3 [facility] Work Phone: Protein [Mass/Vol] 5.6 g/dL below low threshold 6.4 - 8.2 [facility] Work Phone: Sodium [Moles/Vol] 139 mmol/L 136 - 145 [facility] [employer] [facility] Work Phone: Urea nitrogen [Mass/Vol] 29 mg/dL above high threshold 6 - 23 [employer] [facility] Work Phone: Lipid Panelon 04-13-2021 Cholesterol [Mass/Vol] 135 mg/dL 0 - 199 [email or web address] Work Phone: Comment on above: . [...] Cholesterol in HDL [Mass/Vol] 37.0 mg/dL Abnormal MP-Medical [facility] Work Phone: Comment on above: . AGE VERY LOW LOW N ORMAL HIGH 0-19 Y < 35 < 40 40-45 ---- 20-24 Y ---- < 40 >45 ---- >24 Y ---- < 40 40-60 >60. Cholesterol in LDL [Mass/Vol] 80 mg/dL 0 - 99 [employer] [facility] Work Phone: Comment on above: . NEAR BORD AGE CHERYL RABLE OPTIMAL HIGH HIGH VERY HIGH 0-19 Y 0 - 109 --- 110-129 >/= 130 ---- 20-24 Y 0 - 119 --- 120-159 >/= 160 ---- >24 Y 0 - 99 100-129 130-159 160-189 >/=190. Cholesterol.total/Chol esterol in HDL [Mass ratio] 3.6 {ratio} [facility] [facility] Work Phone: Comment on above: REF VALUESDESIRABLE < 3.4HIGH RISK > 5.0 Triglyceride [Mass/Vol] 90 mg/dL 0 - 149 [employer] [facility] Work Phone: Comment on above: [...] Lipid Panel 18 mg/dL 0 - 40 [employer] [facility] Work Phone: No Panel Informationon 04-13 >60 >60 [facility] [facility] Work Phone: Comment on above: CALCULATIONS OF LEONIDES MATED GFR ARE PERFORMED USING THE MDRD STUDY EQUATION FOR THE IDMS-TRACEABLE CREATININE METHODS. CLIN CHEM 2007;53:766-72 Complete Blood Count + Gina lopez 03-31-2020 Basophils (Bld) [#/Vol] 0.10 {x10E9/L} See Below [facility] Work Phone: Comment on above: Reference Range: 0.0 0 - 0.10 Ordering Provider: Yony BATES [id number] Basophils/100 WBC (Bld) 0.8 % 0.0 - 2.0 [facility] Work Phone: Comment on above: Ordering Provider: Yony DEE BATES [id number] Eosinophils (Bld) [#/Vol] 0.20 {x10E9/L} See Below [facility] Work Phone: Comment on above: Reference Range: 0.0 0 - 0.40 Ordering Provider: Yony BATES [id number] Eosinophils/100 WBC (Bld) 2.8 % 0.0 - 6.0 [facility] Work Phone: Comment on above: Ordering Provider: Yony DEE BATES [id number] Erythrocyte distribution width (RBC) [Ratio] 13.5 % See Below [facility] [place] [facility] Work Phone: Comment on above: Reference Range: 11. 5 - 14.5 Ordering Provider: Yony BATES 61567 Hematocrit (Bld) [Volume fraction] 41.2 % See Below [facility] [place] Work Phone: Comment on above: Reference Range: 41. 0 - 52.0 Ordering Provider: Yony DEE BATES 38958 Hemoglobin (Bld) [Mass/Vol] 13.8 g/dL See Below [facility] [place] Work Phone: Comment on above: Reference Range: 13. 5 - 17.5 Ordering Provider: Yony DEE BATES 01183 Lymphocytes (Bld) [#/Vol] 1.10 {x10E9/L} See Below [facility] [place] [facility] Work Phone: Comment on above: Reference Range: 0.8 0 - 3.00 Ordering Provider: S KELIJEANNE Pollack Lymphocytes/100 WBC (Bld) 16.6 % See Below [facility] Work Phone: Comment on above: Reference Range: 13. 0 - 44.0 Ordering Provider: Yony PRICE PAULO Pollack MCHC (RBC) [Mass/Vol] 33.4 g/dL See Below [employer] [facility] Work Phone: Comment on above: Reference Range: 32. 0 - 36.0 Ordering Provider: Yony DICKEYJEANNE Pollack MCV (RBC) [Entitic vol] 99 fL 80 - 100 [facility] Work Phone: Comment on above: Ordering Provider: Yony EDE Pollack Monocytes (Bld) [#/Vol] 0.50 {x10E9/L} See Below [facility] Work Phone: Comment on above: Reference Range: 0.0 5 - 0.80 Ordering Provider: Yony DEE Pollack Monocytes/100 WBC (Bld) 7.4 % 2.0 - 10.0 [facility] Work Phone: Comment on above: Ordering Provider: Yony DICKEYJEANNE Pollack Neutrophils (Bld) [#/Vol] 4.70 {x10E9/L} See Below [facility] Work Phone: Comment on above: Reference Range: 1.6 0 - 5.50 Percent differential counts (%) should be interpreted in the context of the absolute cell counts (cells/L). Ordering Provider: Yony DICKEYJEANNE BATES 70138 Neutrophils/100 WBC (Bld) 72.4 % See Below [facility] Work Phone: Comment on above: Reference Range: 40. 0 - 80.0 Ordering Provider: Yony DEE Pollack Platelets (Bld) [#/Vol] 252 {x10E9/L} 150 - 450 [facility] Work Phone: Comment on above: Ordering Provider: Yony DEE Pollack RBC (Bld) [#/Vol] 4.16 {x10E12/L} below low threshold See Below [employer] [facility] Work Phone: Comment on above: Reference Range: 4.5 0 - 5.90 Ordering Provider: Yony Pollack WBC (Bld) [#/Vol] 6.5 {x10E9/L} 4.4 - 11.3 [facility] Work Phone: Comment on above: Ordering Provider: Yony Pollack WBC (Bld) [#/Vol] 0.1 {/100_WBC} [facility] Work Phone: Comment on above: Ordering Provider: Yony Pollack Lipid Panelon 03-31-2020 Cholesterol [Mass/Vol] 147 mg/dL 0 - 199 [facility] Work Phone: Comment on above: [...] Cholesterol in HDL [Mass/Vol] 39.0 mg/dL Abnormal [facility] Work Phone: Comment on above: . AGE VERY LOW LOW N ORMAL HIGH 0-19 Y < 35 < 40 40-45 ---- 20-24 Y ---- < 40 >45 ---- >24 Y ---- < 40 40-60 >60. Cholesterol in LDL [Mass/Vol] 87 mg/dL 0 - 99 [employer] [facility] Work Phone: Comment on above: . NEAR BORD AGE CHERYL RABLE OPTIMAL HIGH HIGH VERY HIGH 0-19 Y 0 - 109 --- 110-129 >/= 130 ---- 20-24 Y 0 - 119 --- 120-159 >/= 160 ---- >24 Y 0 - 99 100-129 130-159 160-189 >/=190. Cholesterol.total/Chol esterol in HDL [Mass ratio] 3.8 {ratio} [employer] [facility] Work Phone: Comment on above: REF VALUESDESIRABLE < 3.4HIGH RISK > 5.0 Triglyceride [Mass/Vol] 106 mg/dL 0 - 149 [employer] [facility] Work Phone: Comment on above: [...] Lipid Panel 21 mg/dL 0 - 40 [employer] [facility] Work Phone: MRSA Screenon 03-31-2020 Staphylococcus sp identified Org specific cx Nom (Unsp spec) PATIENT: FAWN CAMERON LOCATION: [facility]#: [id number] : [birth year] AGE: SEX: M ORDERED BY: [place] BATES: ANTERIOR NARES COLLECTED: 03/31/20 07:10ANTIBIOTICS AT WILL.: RECEIVED : 03/31/20 15:03SITE: R E S U L T S STAPH/MRSA SCREEN FINAL 04/02/20 08:45 NO Staphylococcus aureus ISOLATED. [employer] [facility] Work Phone: Comment on above: Ordering Provider: Yony BATES 18641 Metabolic Panelon 03-31-2020 ALP [Catalytic activity/Vol] 67 U/L 33 - 136 [facility] Work Phone: Anion gap [Moles/Vol] 10 mmol/L 10 - 20 [facility] Work Phone: Bilirubin [Mass/Vol] 1.0 mg/dL 0.0 - 1.2 - [facility] Work Phone: Calcium [Mass/Vol] 8.9 mg/dL 8.6 - 10.3 [facility] Work Phone: Chloride [Moles/Vol] 107 mmol/L 98 - 107 - [facility] Work Phone: CO2 [Moles/Vol] 26 mmol/L 21 - 32 -[facility] Work Phone: Creatinine [Mass/Vol] 0.89 mg/dL See Below [facility] Work Phone: Comment on above: Reference Range: 0.5 0 - 1.30 Glucose [Mass/Vol] 92 mg/dL 74 - 99 [facility] Work Phone: Potassium [Moles/Vol] 3.9 mmol/L 3.5 - 5.3 [facility] Work Phone: Protein [Mass/Vol] 5.7 g/dL below low threshold 6.4 - 8.2 [facility] Work Phone: Sodium [Moles/Vol] 139 mmol/L 136 - 145 [facility] Work Phone: Urea nitrogen [Mass/Vol] 19 mg/dL 6 - 23 [facility] Work Phone: Otheron 03-31-2020 Albumin BCP dye [Mass/Vol] 4.1 g/dL 3.4 - 5.0 [facility] Work Phone: ALT With P-5'-P [Catalytic activity/Vol] 17 U/L 10 - 52 [facility] Work Phone: Comment on above: Patients treated wit h Sulfasalazine may generate falsely decreased results for ALT. AST With P-5'-P [Catalytic activity/Vol] 16 U/L 9 - 39 [facility] [place] [facility] Work Phone: >60 >60 [facility] [place] [facility] Work Phone: Comment on above: CALCULATIONS OF LEONIDES MATED GFR ARE PERFORMED USING THE MDRD STUDY EQUATION FOR THE IDMS-TRACEABLE CREATININE METHODS. CLIN CHEM 2007;53:766-72 Urinalysison 03-31-2020 Appearance (U) HAZY CLEAR [facility] Work Phone: Comment on above: Ordering Provider: Yony Pollack Color (U) Yellow See Below [facility] Work Phone: Comment on above: Reference Range: STR AW,YELLOW Ordering Provider: Yony Pollack Glucose Ql (U) Negative NEGATIVE [facility] Work Phone: Comment on above: Ordering Provider: Yony BATES 07633 Ketones Ql (U) Negative NEGATIVE [facility] [place] [facility] Work Phone: Comment on above: Ordering Provider: Yony BATES 07432 Leukocyte esterase Test strip Ql (U) Negative NEGATIVE [facility] Work Phone: Comment on above: Ordering Provider: Yony BATES 48580 pH (U) 6.0 [pH] 5.0 - 8.0 [facility] Work Phone: Comment on above: Ordering Provider: Yony BATES 52075 Protein (U) [Mass/Vol] Negative NEGATIVE [facility] Work Phone: Comment on above: Ordering Provider: Yony BATES 16210 RBC (U) [#/Vol] Negative NEGATIVE [facility] Work Phone: Comment on above: Ordering Provider: Yony Pollack Specific gravity (U) [Rel density] 1.018 1 See Below -[facility] Work Phone: Comment on above: Reference Range: 1.0 05 - 1.035 Ordering Provider: Yoyn Pollack Urinalysis Negative NEGATIVE [facility] Work Phone: Comment on above: Ordering Provider: Yony Pollack Urinalysis <2.0 0.0 - 1.9 [facility] Work Phone: Comment on above: Ordering Provider: Yony Pollack Other 03-08-2020 Stress Nuc Stress EF 67 % [place] [employer] Patient Info Name: FAWN CAMERON Age: 84 years : 1935 Gender: Male Ht: 170 cm Wt: 76 kg BSA: 1.90 m2 Exam Date: 03/08/2020 10:00 AM Patient Status: Outpatient Ordering Physician: HEATHER PAREDES Store Stock Help: Sherry Damon, RT(N), LEILA, ISABEL, Gregory Damon RT(N), NCT Exam Type: NM MYOCARDIAL PERFUSION MULTI SPECT Study Info Indications - Pre-op, intermediate risk surgery, no CVD/CKD/IDDM Attending Physician: HEATHER PAREDES Nuclear Physician: Deb Sue MD, SILVANA Referring Physician: HEATHER PAREDES ; [id number] Stress Staff: Paulino Tesfaye MA Primary Nurse: Deb Menendez RN Supervising Stress Physician: Deb Sue MD, RPVI BMI: 0.26 kg/m2 Summary 1. The stress [...] ECG No ST changes with pharmacologic stress. -------- Stage: Rest Duration (min): --- HR (bpm): 66 SBP (mmHg): 138 DBP (mmHg): 73 -------- Stage: 1 Duration (min): 1 min : 0 sec Dose: .4 mg Medication(s): Lexiscan HR (bpm): 77 SBP (mmHg): --- DBP (mmHg): --- -------- Stage: 2 Duration (min): 1 min : 0 sec HR (bpm): 88 SBP (mmHg): 116 DBP (mmHg): 67 -------- Stage: 3 Duration (min): 1 min : 0 sec HR (bpm): 89 SBP (mmHg): --- DBP (mmHg): --- -------- Stage: 4 Duration (min): 1 min : 0 sec HR (bpm): 85 SBP (mmHg): 125 DBP (mmHg): 64 -------- Stage: 5 Duration (min): 1 min : 0 sec HR (bpm): 79 SBP (mmHg): --- DBP (mmHg): --- -------- Stage: Recovery Duration (min): 3 min : 0 sec HR (bpm): 76 SBP (mmHg): 133 DBP (mmHg): 66 Administration Site: IV - left antecubital Administered By: Sherry Damon RT(N), RAIMANN MACHINE OPERATOR, [facility] Camera Used: ZolkC D-SPECT Image Protocol Stress Patient Position: upright and supine Total Radiation Dose: 2 mSv Procedure(s): Stress Gated SPECT images obtained post Tetrofosmin injection. SPECT Results Perfusion Findings The stress nuclear myocardial perfusion imaging was normal. No resting imaging was performed. Summed Stress Score: 0 Perfusion Quantitative Results Stress Extent Global Stress Extent 0 % Functional Results ---- Name Value Normal ---- Stress ---- Stress LV Ejection Fraction 67 % 55-70 [...] Deb Sue MD on 03/08/2020 02:15 PM [facility] Interface, Rad In Heartlab Xper Echopacs - 03/08/2020 3:38 PM EDT Patient Info Name: FAWN CAMERON Age: 84 years : 1935 Gender: Male Ht: 170 cm Wt: 76 kg BSA: 1.90 m2 Exam Date: 03/08/2020 10:00 AM Patient Status: Outpatient Ordering Physician: HEATHER PAREDES Store Stock Help: Sherry Damon, RT(N), LEILA, ISABEL, Gregory Damon RT(N), NCT Exam Type: NM MYOCARDIAL PERFUSION MULTI SPECT Study Info Indications - Pre-op, intermediate risk surgery, no CVD/CKD/IDDM Attending Physician: HEATHER PAREDES Nuclear Physician: Deb Sue MD, SILVANA Referring Physician: HEATHER PAREDES ; [id number] Stress Staff: Paulino Tesfaye MA Primary Nurse: Deb Menendez RN Supervising Stress Physician: Deb Sue MD, RPLUIS BMI: 0.26 kg/m2 Summary 1. The stress [...] ECG No ST changes with pharmacologic stress. -------- Stage: Rest Duration (min): --- HR (bpm): 66 SBP (mmHg): 138 DBP (mmHg): 73 -------- Stage: 1 Duration (min): 1 min : 0 sec Dose: .4 mg Medication(s): Lexiscan HR (bpm): 77 SBP (mmHg): --- DBP (mmHg): --- -------- Stage: 2 Duration (min): 1 min : 0 sec HR (bpm): 88 SBP (mmHg): 116 DBP (mmHg): 67 -------- Stage: 3 Duration (min): 1 min : 0 sec HR (bpm): 89 SBP (mmHg): --- DBP (mmHg): --- -------- Stage: 4 Duration (min): 1 min : 0 sec HR (bpm): 85 SBP (mmHg): 125 DBP (mmHg): 64 -------- Stage: 5 Duration (min): 1 min : 0 sec HR (bpm): 79 SBP (mmHg): --- DBP (mmHg): --- -------- Stage: Recovery Duration (min): 3 min : 0 sec HR (bpm): 76 SBP (mmHg): 133 DBP (mmHg): 66 Administration Site: IV - left antecubital Administered By: Sherry Damon RT(N), LEILA, RCS Camera Used: ZolkC D-SPECT Image Protocol Stress Patient Position: upright and supine Total Radiation Dose: 2 mSv Procedure(s): Stress Gated SPECT images obtained post Tetrofosmin injection. SPECT Results Perfusion Findings The stress nuclear myocardial perfusion imaging was normal. No resting imaging was performed. Summed Stress Score: 0 Perfusion Quantitative Results Stress Extent Global Stress Extent 0 % Functional Results ---- Name Value Normal ---- Stress ---- Stress LV Ejection Fraction 67 % 55-70 [...] Deb Sue MD on 03/08/2020 02:15 PM [facility] MR Shoulder Left Without Con traston 12-10-2019 [...] AC joint osteoarthrosis. Moderate glenohumeral joint effusion. [employer] Workstation ID: [id number] [facility] EXAMINATION: MR SHOULDER LEFT WITHOUT CONTRAST HISTORY: [...] the fluid extends into the subdeltoid bursa. [facility] Interface, Rad In Fu ji Speechq - 12/10/2019 3:36 PM EST EXAMINATION: [...] AC joint osteoarthrosis. Moderate glenohumeral joint effusion. [facility] Workstation ID: [id number] [facility] IO UA (nonautomated w/o micr oscopy)on 11-12-2019 Protein (U) [Mass/Vol] Negative Negative [employer] Work Phone: IO UA (nonautomated w/o microscopy) Clear Clear VU-Syy[facility]dm[facility] Work Phone: IO UA (nonautomated w/o microscopy) Negative Negative [employer] Work Phone: IO UA (nonautomated w/o microscopy) 1.025 1.000-1.030 [employer] Work Phone: IO UA (nonautomated w/o microscopy) Yellow Colorless-Ye llow GX-[facility]afcxci-Enh land Work Phone: IO UA (nonautomated w/o microscopy) 5.5 5.0-8.0 QD-Hlafyts-Typ land Work Phone: IO UA (nonautomated w/o microscopy) Normal (0.2-1.0 mg/dl) Normal [employer] yE96 Work Phone: IO Ultrasound, measurement p ost-void resid urine and/or bl cap; no imagon 10-08-2019 IO Ultrasound, measurement post-void resid urine and/or bl cap; no imag 36 ml/min [employer] Work Phone: LDL, Direct, Serumon 019 Cholesterol in LDL [Mass/Vol] 102 mg/dL 0 - 129 [facility] Work Phone: Comment on above: Elevated levels [...] [Catalytic activity/Vol] 100 U/L 33 - 136 [facility] Work Phone: Anion gap [Moles/Vol] 12 mmol/L 10 - 20 [facility] Work Phone: Bilirubin [Mass/Vol] 0.6 mg/dL 0.0 - 1.2 -u.sitical [employer] [facility] Work Phone: Calcium [Mass/Vol] 9.1 mg/dL 8.6 - 10.3 -Sensorion ical [employer] [facility] Work Phone: Chloride [Moles/Vol] 106 mmol/L 98 - 107 [facility] Work Phone: CO2 [Moles/Vol] 24 mmol/L 21 - 32 -Medic l [employer] [facility] Work Phone: Creatinine [Mass/Vol] 0.93 mg/dL See Below [facility] Medical [employer] [facility] Work Phone: Comment on above: Reference Range: 0.5 0 - 1.30 Glucose [Mass/Vol] 101 mg/dL above high threshold 74 - 99 -Medical [employer] [facility] Work Phone: Potassium [Moles/Vol] 4.0 mmol/L 3.5 - 5.3 - Medical [employer] [facility] Work Phone: Protein [Mass/Vol] 6.2 g/dL below low threshold 6.4 - 8.2 -Medical [employer] [facility] Work Phone: Sodium [Moles/Vol] 138 mmol/L 136 - 145 -Sensorion ical [employer] [facility] Work Phone: Urea nitrogen [Mass/Vol] 28 mg/dL above high threshold 6 - 23 -Medical [employer] [facility] Work Phone: Otheron 09-29-2019 Albumin BCP dye [Mass/Vol] 3.9 g/dL 3.4 - 5.0 [facility] Work Phone: ALT With P-5'-P [Catalytic activity/Vol] 15 U/L 10 - 52 [employer] Work Phone: Comment on above: Patients treated wit h Sulfasalazine may generate falsely decreased results for ALT. AST With P-5'-P [Catalytic activity/Vol] 15 U/L 9 - 39 [facility] Work Phone: >60 >60 [employer] Work Phone: Comment on above: CALCULATIONS OF LEONIDES MATED GFR ARE PERFORMED USING THE MDRD STUDY EQUATION FOR THE IDMS-TRACEABLE CREATININE METHODS. CLIN CHEM 2007;53:766-72 Basic Metabolic Panelon 11-2 Anion gap [Moles/Vol] 13 mmol/L 10 - 2 0 mmol/L [facility] Calcium [Mass/Vol] 8.3 mg/dL Low 8.4 - 10. 2 mg/dL [facility] Chloride [Moles/Vol] 109 mmol/L High 98 - 10 8 mmol/L [facility] Creatinine [Mass/Vol] 0.86 mg/dL 0.8 - 1.3 mg/dL [facility] GFR/1.73 sq M predicted among non-blacks MDRD (S/P/Bld) [Vol rate/Area] The eGFR should be used for monitoring renal function only and not for medication dosing. [facility] GFR/1.73 sq M.predicted CKD-EPI (S/P/Bld) [Vol rate/Area] 80 >=60 mL/min/1.73 m2 [facility] Glucose [Mass/Vol] 99 mg/dL 65 - 99 mg/dL [facility] HCO3 [Moles/Vol] 23 mmol/L 21 - 32 mmol/L [facility] Interpretation and review of laboratory results Abnormal [facility] Potassium [Moles/Vol] 4.0 mmol/L 3.5 - 5.1 mmol/L [facility] Sodium [Moles/Vol] 141 mmol/L 135 - 145 mmol/L [facility] Urea nitrogen [Mass/Vol] 17 mg/dL 8 - 25 mg/dL [facility] Urea nitrogen/Creatinine [Mass ratio] 19.8 mg/mg [facility] Hemoglobin and Hematocriton 09-11-2019 Hematocrit (Bld) [Volume fraction] 35.5 % Low 41 - 53 % [facility] Hemoglobin (Bld) [Mass/Vol] 11.9 g/dL Low 13.5 - 17.5 g/dL [facility] Interpretation and review of laboratory results Abnormal [facility] XR Hip Left 2-3 Views (Routi ne)on 09-10-2019 Interface, Rad In Fu ji Speechq - 09/10/2019 6:30 PM EST EXAMINATION: [...] limits. IMPRESSION: Interval left total hip replacement. [employer] Workstation ID: [id number] [facility] EXAMINATION: XR HIP LEFT 2-3 VIEWS (ROUTINE) [...] fracture. Soft tissues are within normal limits. [facility] Interval left total hip replacement. [employer] Workstation ID: [id number] [facility] Complete Blood Count + Diffe rentialon 08-22-2019 Basophils (Bld) [#/Vol] 0.00 {x10E9/L} See Below [facility] Work Phone: Comment on above: Reference Range: 0.0 0 - 0.10 Ordering Provider: P ADMA VELLANKI 32199 Basophils/100 WBC (Bld) 0.5 % 0.0 - 2.0 [facility] [place] Work Phone: Comment on above: Ordering Provider: P ADMA VELLANKI 74879 Eosinophils (Bld) [#/Vol] 0.20 {x10E9/L} See Below [facility]elia [place] Work Phone: Comment on above: Reference Range: 0.0 0 - 0.40 Ordering Provider: P ADMA NEETULANKI 47012 Eosinophils/100 WBC (Bld) 2.8 % 0.0 - 6.0 [facility] Work Phone: Comment on above: Ordering Provider: [place]os ADMA NEETULANKI 73438 Erythrocyte distribution width (RBC) [Ratio] 13.5 % See Below [facility] Work Phone: Comment on above: Reference Range: 11. 5 - 14.5 Ordering Provider: P ADMA NEETULANKI 30146 Hematocrit (Bld) [Volume fraction] 40.3 % below low threshold See Below [facility] [place] Work Phone: Comment on above: Reference Range: 41. 0 - 52.0 Ordering Provider: Tacos ADMA NEETULANKI 79178 Hemoglobin (Bld) [Mass/Vol] 13.7 g/dL See Below [facility] [place] Work Phone: Comment on above: Reference Range: 13. 5 - 17.5 Ordering Provider: P ADMA VELLANKI 23582 Lymphocytes (Bld) [#/Vol] 1.10 {x10E9/L} See Below [facility] [place] Work Phone: Comment on above: Reference Range: 0.8 0 - 3.00 Ordering Provider: [place] ADMA NEETULANKI 52683 Lymphocytes/100 WBC (Bld) 13.5 % See Below [facility] [place] Work Phone: Comment on above: Reference Range: 13. 0 - 44.0 Ordering Provider: P ADMA NEETULANFLORENTIN 83381 MCHC (RBC) [Mass/Vol] 34.0 g/dL See Below [facility] Work Phone: Comment on above: Reference Range: 32. 0 - 36.0 Ordering Provider: P ADMA NEETULANFLORENTIN 91866 MCV (RBC) [Entitic vol] 101 fL above high threshold 80 - 100 [facility] [place] Work Phone: Comment on above: Ordering Provider: P ADMA NEETULANKI 25543 Monocytes (Bld) [#/Vol] 0.80 {x10E9/L} See Below [facility] [place] Work Phone: Comment on above: Reference Range: 0.0 5 - 0.80 Ordering Provider: P ADMA NEETULANKI 79924 Monocytes/100 WBC (Bld) 9.5 % 2.0 - 10.0 [facility] [place] Work Phone: Comment on above: Ordering Provider: P ADMA NEETULANKI 62380 Neutrophils/100 WBC (Bld) 73.7 % See Below [facility] [place] Work Phone: Comment on above: Reference Range: 40. 0 - 80.0 Ordering Provider: P ADMA VELLANKI 68868 Platelets (Bld) [#/Vol] 273 {x10E9/L} 150 - 450 [facility] [place] Work Phone: Comment on above: Ordering Provider: P ADMA VELLANKI 13224 RBC (Bld) [#/Vol] 3.98 {x10E12/L} below low threshold See Below [facility] [place] Work Phone: Comment on above: Reference Range: 4.5 0 - 5.90 Ordering Provider: P ADMA VELLANKI 76644 WBC (Bld) [#/Vol] 8.1 {x10E9/L} 4.4 - 11.3 [facility] ehab Services-[facility] [place]elia [place] Work Phone: Comment on above: Ordering Provider: P ADMA JOSE M 51972 Complete Blood Count + Differential 6.00 {x10E9/L} above high threshold See Below [facility] enedelia [place] Work Phone: Comment on above: Reference Range: 1.6 0 - 5.50 Ordering Provider: P ADMA JOSE M 63854 Metabolic Panelon 08-22-2019 ALP [Catalytic activity/Vol] 73 U/L 33 - 136 [facility] [place]elia [place] Work Phone: Comment on above: Ordering Provider: P ADMA JOSE M 44739 Anion gap [Moles/Vol] 9 mmol/L below low threshold 10 - 20 [facility] [place] Work Phone: Comment on above: Ordering Provider: P ADMA JOSE M 24369 Bilirubin [Mass/Vol] 0.6 mg/dL 0.0 - 1.2 [facility] [place] Work Phone: Comment on above: Ordering Provider: P ADMA JOSE M 71386 Calcium [Mass/Vol] 8.9 mg/dL 8.6 - 10.3 [facility] en[facility]elia [place] Work Phone: Comment on above: Ordering Provider: P ADMA JOSE M 37377 Chloride [Moles/Vol] 105 mmol/L 98 - 107 [facility] [place] Work Phone: Comment on above: Ordering Provider: P ADMA NEETULANFLORENTIN 90523 CO2 [Moles/Vol] 29 mmol/L 21 - 32 [facility] [place] Work Phone: Comment on above: Ordering Provider: P ADMA NEETULANFLORENTIN 41217 Creatinine [Mass/Vol] 0.84 mg/dL See Below [facility] Hospitalsat[facility] [place] Work Phone: Comment on above: Reference Range: 0.5 0 - 1.30 Ordering Provider: P ADMA NEETULANKI 28251 Glucose [Mass/Vol] 88 mg/dL 74 - 99 [facility] [place]elia [place] Work Phone: Comment on above: Ordering Provider: P ADMA VELLANKI 03123 Potassium [Moles/Vol] 4.0 mmol/L 3.5 - 5.3 [facility] enedelia [place] Work Phone: Comment on above: Ordering Provider: P ADMA NEETULANKI 09422 Protein [Mass/Vol] 6.2 g/dL below low threshold 6.4 - 8.2 [facility] enedelia [place] Work Phone: Comment on above: Ordering Provider: P ADMA NEETULANKI 13972 Sodium [Moles/Vol] 139 mmol/L 136 - 145 Alan ab [facility] enedelia [place] Work Phone: Comment on above: Ordering Provider: P ADMA NEETULANKI 39385 Urea nitrogen [Mass/Vol] 22 mg/dL 6 - 23 [facility] [place] Work Phone: Comment on above: Ordering Provider: P ADMA NEETULANFLROENTIN 85660 Otheron 08-22-2019 Albumin BCP dye [Mass/Vol] 4.1 g/dL 3.4 - 5.0 [facility] [place] Work Phone: Comment on above: Ordering Provider: P ADMA NEETULANKI 16069 ALT With P-5'-P [Catalytic activity/Vol] 16 U/L 10 - 52 [facility] [place] Work Phone: Comment on above: Patients treated wit h Sulfasalazine may generate falsely decreased results for ALT. Ordering Provider: P ADMA VELLANKI 77648 AST With P-5'-P [Catalytic activity/Vol] 16 U/L 9 - 39 [facility] enedelia [place] Work Phone: Comment on above: Ordering Provider: P ADMA NEETULANKI 36485 >60 >60 [facility] Work Phone: Comment on above: Ordering Provider: Tacos SALGUERO 83205 CALCULATIONS OF LEONIDES MATED GFR ARE PERFORMED USING THE MDRD STUDY EQUATION FOR THE IDMS-TRACEABLE CREATININE METHODS. 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 Mild osteoarthritic changes of the knees. 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 Recommend vascular surgery follow-up. [facility] Workstation ID: [id number] [facility] EXAMINATION: CT HIP LEFT WITHOUT CONTRAST HISTORY: [...] Severe left hip joint space narrowing with uhce-mf-owrp appearance, superolateral migration of the femoral head, subchondral sclerosis, subchondral cystic changes and moderate marginal osteophytosis, compatible with advanced osteoarthritis. Severe right hip joint space narrowing with aueq-sa-shus appearance and moderate marginal osteophytosis, compatible with [...] atherosclerotic calcification of the visualized popliteal arteries. [facility] Interface, Rad In Fu ji Speechq - 08/19/2019 6:49 PM EDT EXAMINATION: [...] Severe left hip joint space narrowing with rusw-vm-rgdr appearance, superolateral migration of the femoral head, subchondral sclerosis, subchondral cystic changes and moderate marginal osteophytosis, compatible with advanced osteoarthritis. Severe right hip joint space narrowing with ymzi-sw-skgg appearance and moderate marginal osteophytosis, compatible with [...] to 3.4 cm. Recommend vascular surgery follow-up. [facility] Workstation ID: [id number] [facility] 08-05-2019 CT Head limited WO contrast Interpreted by: RUBINA PINEDA08/05/19 15:15MRN: [id number] Name: JEANIEFAWN CONNOLLY STUDY:CT HEAD WO CONTRAST; 08/05/2019 3:04 pm INDICATION:vision changes. COMPARISON:06/09/2015 ORDERING CLINICIAN:BREANNA RICHEY TECHNIQUE:Volume acquisition through the brain with axial coronal and sagittalreformatted 5 mm images. No IV contrast. FINDINGS:INTRACRANIAL: The ventricles are midline in position.Mild periventricularwhite-m atter small-vessel chronic appearing ischemic changes. Thereis no evidence of acute infarction or hemorrhage. There is noextra-axial mass or fluid collection. The basilar cisterns are patent. EXTRACRANIAL:The imaged paranasal sinuses are clear. The imaged mastoid air cellsare clear. The calvarium is intact. IMPRESSION:1. There is no evidence of an acute infarction or hemorrhage.Joaoa bradley signed by: RUBINA PINEDA 08/05/19 15:15 Normal [facility] Work Phone: Comment on above: Ordering Provider: Sin ZABALA MOOMAW 08283 Auto Diffon 05-24-2019 Basophils (Bld) [#/Vol] 0.0 E3/mcL Normal 0.0-0.2 [facility] Comment on above: Order Comment: Order Added by Discern Expert. Performed By: #### 2 [id number] #### LUIS MANUEL [facility] [address] [place] [address] Basophils/100 WBC (Bld) 0.6 % Normal 0.0-2.0 [facility] Comment on above: Order Comment: Order Added by Discern Expert. Performed By: #### 2 668162 #### LUIS MANUEL [facility] [address] [place] [address] Eos Absolute 0.2 E3/mcL Normal 0.0-0.7 [facility] Comment on above: Order Comment: Order Added by Discern Expert. Performed By: #### 2 416359 #### LUIS MANUEL [facility] [address] [place] [address] Eosinophils/100 WBC (Bld) 2.4 % Normal 0.0-11.0 [facility] Comment on above: Order Comment: Order Added by Discern Expert. Performed By: #### 2 546441 #### LUIS MANUEL [facility] [address] [place] [address] Lymphocytes (Bld) [#/Vol] 1.2 E3/mcL Normal 1.2-3.4 [facility] Comment on above: Order Comment: Order Added by Discern Expert. Performed By: #### 2 986475 #### LUIS MANUEL [facility] [address] [place] [address] Lymphocytes/100 WBC (Bld) 15.9 % Low 20.0-55.0 [facility] Comment on above: Order Comment: Order Added by Discern Expert. Performed By: #### 2 716645 #### LUIS MANUEL [facility] [address] [place] [address] [place] Absolute 0.9 E3/mcL High 0.0-0.7 [facility] Comment on above: Order Comment: Order Added by Discern Expert. Performed By: #### 2 934928 #### LUIS MANUEL [facility] [address] [place] [address] Monocytes/100 WBC (Bld) 11.2 % High 0.0-10.0 [facility] Comment on above: Order Comment: Order Added by Discern Expert. Performed By: #### 2 730473 #### LUIS MANUEL [facility] [address] [place] [address] Neutro Absolute 5.5 E3/mcL Normal 1.4-6.5 [facility] Comment on above: Order Comment: Order Added by Discern Expert. Performed By: #### 2 621248 #### LUIS MANUEL [facility] [address] [place] [address] Neutro Auto 69.9 % Normal 37.0-75.0 [facility] Comment on above: Order Comment: Order Added by Discern Expert. Performed By: #### 2 841136 #### LUIS MANUEL [facility] [address] [place] [address] CBC w/ Auto Diffon 9 Erythrocyte distribution width (RBC) [Ratio] 13.7 % Normal 11.5-14.5 [facility] Comment on above: Performed By: #### 2 221672 #### [facility] [address] [place] [address] Hematocrit (Bld) [Volume fraction] 42.6 % Normal 42.0-52.0 [facility] Comment on above: Performed By: #### 2 463362 #### LUIS MANUEL [facility] [address] [place] [address] Hemoglobin (Bld) [Mass/Vol] 14.2 g/dL Normal 13.5-18.0 [facility] Comment on above: Performed By: #### 2 104898 #### LUIS MANUEL [facility] [address] [place] [address] MCH (RBC) [Entitic mass] 33.5 pg High 27.0-31.0 [facility] Comment on above: Performed By: #### 2 179765 #### LUIS MANUEL [facility] [address] [place] [address] MCHC (RBC) [Mass/Vol] 33.4 g/dL Normal 33.0-37.[address] [facility] Comment on above: Performed By: #### 2 474002 #### LUIS MANUEL [facility] [address] [place] [address] MCV (RBC) [Entitic vol] 100.3 fL High 78.0-100.0 [facility] Comment on above: Performed By: #### 2 029673 #### LUIS MANUEL [facility] [address] [place] [address] Platelet mean volume (Bld) [Entitic vol] 7.9 fL Normal 7.4-11.0 [facility] Comment on above: Performed By: #### 2 786318 #### LUIS MANUEL [facility] [address] [place] [address] Platelets (Bld) [#/Vol] 263 E3/mcL Normal 130-400 [facility] Comment on above: Performed By: #### 2 568265 #### LUIS MANUEL [facility] [address] [place] [address] RBC (Bld) [#/Vol] 4.24 E6/mcL Normal 3.90-6.10 [facility] Comment on above: Performed By: #### 2 237260 #### LUIS MANUEL [facility] [address] [place] [address] WBC (Bld) [#/Vol] 7.9 E3/mcL Normal 3.6-11.0 [facility] Comment on above: Performed By: #### 2 815532 #### LUIS MANUEL [facility] [address] [place] [address] CMPon 05-24-2019 Albumin [Mass/Vol] 4.2 g/dL Normal 3.4-5.0 [facility] Comment on above: Performed By: #### 2 141718 #### LUIS MANUEL [facility] [address] [place] [address] Albumin/Globulin [Mass ratio] 1.9 {ratio} Normal 1.1-1.9 [facility] Comment on above: Performed By: #### 2 787321 #### LUIS MANUEL [facility] [address] [place] [address] Alk Phos 78 Int._Unit/L Normal 33-136 [facility] Comment on above: Performed By: #### 2 013812 #### LUIS MANUEL [facility] [address] [place] [address] ALT [Catalytic activity/Vol] 19 Int._Unit/L Normal 10-52 [facility] Comment on above: Performed By: #### 2 589863 #### LUIS MANUEL [facility] [address] [place] [address] Anion gap [Moles/Vol] 10 mmol/L Normal 10-[address] [facility] Comment on above: Performed By: #### 2 140386 #### LUIS MANUEL [employer] [place] [address] AST [Catalytic activity/Vol] 20 Int._Unit/L Normal 9-39 [facility] Comment on above: Performed By: #### 2 066348 #### LUIS MANUEL [employer] [address] [place] [address] Bili Total 0.62 mg/dL Normal 0.00-1.20 [facility] Comment on above: Performed By: #### 2 948777 #### LUIS MANUEL [facility] [address] [place] [address] Calcium [Mass/Vol] 8.9 mg/dL Normal 8.6-10.3 [facility] Comment on above: Performed By: #### 2 604108 #### LUIS MANUEL [facility] [address] [place] [address] Chloride [Moles/Vol] 106 mmol/L Normal 98-107 [facility] Comment on above: Performed By: #### 2 079344 #### LUIS MANUEL [facility] [address] [place] [address] CO2 [Moles/Vol] 29.0 mmol/L Normal 21.0-32.0 [facility] Comment on above: Performed By: #### 2 663467 #### LUIS MANUEL [facility] [address] [place] [address] Creatinine [Mass/Vol] 1.0 mg/dL Normal 0.5-1.[address] [facility] Comment on above: Performed By: #### 2 565937 #### LUIS MANUEL [facility] [address] [place] [address] Globulin (S) [Mass/Vol] 2.0 g/dL Normal 2.0-4.0 [facility] Comment on above: Performed By: #### 2 235629 #### LUIS MANUEL [facility] [address] [place] [address] Glucose [Mass/Vol] 92 mg/dL Normal 70-99 [facility] Comment on above: Performed By: #### 2 340597 #### LUIS MANUEL [facility] [address] [place] [address] Potassium [Moles/Vol] 4.2 mmol/L Normal 3.5-5.[address] [facility] Comment on above: Performed By: #### 2 862939 #### LUIS MANUEL [facility] [address] [place] [address] Protein [Mass/Vol] 6.4 g/dL Normal 6.4-8.2 [facility] Comment on above: Performed By: #### 2 628908 #### LUIS MANUEL [facility] [address] [place] [address] Sodium [Moles/Vol] 141 mmol/L Normal 136-145 [facility] Comment on above: Performed By: #### 2 820230 #### LUIS MANUEL [facility] [address] [place] [address] Urea nitrogen [Mass/Vol] 22 mg/dL Normal 6-23 [facility] Comment on above: Performed By: #### 2 838069 #### LUIS MANUEL [facility] [address] [place] [address] Urea nitrogen/Creatinine [Mass ratio] 22.0 ratio Normal 5.4-30.0 [facility] Comment on above: Performed By: #### 2 227508 #### LUIS MANUEL [facility] [address] [place] [address] eGFRon 05-24-2019 GFR/1.73 sq M predicted among non-blacks MDRD (S/P/Bld) [Vol rate/Area] mL/min/{1.73_m2} Normal [facility] Comment on above: Order Comment: Order added by Discern Expert. Performed By: #### 2 281220 #### LUIS MANUEL [facility] [address] [place] [id number] ECG 12-LEADon 05-19-2019 Atrial Rate [facility] P [place] [facility] P-R Interval [facility] Q-T Interval [facility] Q-T Interval (corrected) [facility] QRS Duration [facility] QTC Calculation (Bezet) [facility] R [place] [facility] T [place] [facility] Vent[facility] th XR Esophaguson 04-16-2019 XR Esophagus Exam Date/Time: 04/16/2019 08:36 EDT Reason for Exam: ESOPHAGEAL SPASM HIATAL HERNIA;Esophageal spasm Report STUDY: Esophagram dated 04/16/2019. INDICATION: Pain. COMPARISON: None. ACCESSION NUMBER(S): [id number] ORDERING CLINICIAN: Daysi Arenas TECHNIQUE: [employer] Policy [employer] Strategy Planner radiograph of the abdomen was obtained. Patient [...] am Signed by: João Zamora MD Technologist: TRD Normal [facility] CMPon 03-20-2019 Albumin [Mass/Vol] 3.8 g/dL Normal 3.4-5.0 [facility] Comment on above: Performed By: #### 2 323513 #### LUIS MANUEL [facility] [address] [place] [id number] Albumin/Globulin [Mass ratio] 2.2 {ratio} High 1.1-1.9 [facility] Comment on above: Performed By: #### 2 873280 #### LUIS MANUEL [facility] [address] [place] [address] Alk Phos 68 Int._Unit/L Normal 33-136 [facility] Comment on above: Performed By: #### 2 340128 #### LUIS MANUEL [facility] [address] [place] [address] ALT [Catalytic activity/Vol] 15 Int._Unit/L Normal 10-52 [facility] Comment on above: Performed By: #### 2 560697 #### LUIS MANUEL [facility]er[facility] [address] [place] [address] Anion gap [Moles/Vol] 9 mmol/L Low 10-[address] [facility] Comment on above: Performed By: #### 2 171330 #### LUIS MANUEL BoyerHemo [facility] [place] [address] AST [Catalytic activity/Vol] 17 Int._Unit/L Normal 9-39 [facility] Comment on above: Performed By: #### 2 338444 #### LUIS MANUEL [facility] [address] [place] [address] Bili Total 0.86 mg/dL Normal 0.00-1.20 [facility] Comment on above: Performed By: #### 2 233489 #### LUIS MANUEL [facility] [address] [place] [address] Calcium [Mass/Vol] 8.4 mg/dL Low 8.6-10.3 [facility] Comment on above: Performed By: #### 2 121300 #### LUIS MANUEL [facility] [address] [place] [address] Chloride [Moles/Vol] 108 mmol/L High 98-107 [facility] Comment on above: Performed By: #### 2 746514 #### LUIS MANUEL [facility] [address] [place] [address] CO2 [Moles/Vol] 25.0 mmol/L Normal 21.0-32.0 [facility] Comment on above: Performed By: #### 2 235023 #### LUIS MANUEL [facility] [address] [place] [address] Creatinine [Mass/Vol] 0.9 mg/dL Normal 0.5-1.[address] [facility] Comment on above: Performed By: #### 2 231299 #### LUIS MANUEL [facility] [address] [place] [address] Globulin (S) [Mass/Vol] 2.0 g/dL Normal 2.0-4.0 [facility] Comment on above: Performed By: #### 2 102744 #### LUIS MANUEL [facility] [address] [place] [address] Glucose [Mass/Vol] 91 mg/dL Normal 70-99 [facility] Comment on above: Performed By: #### 2 797025 #### LUIS MANUEL [facility] [address] [place] [address] Potassium [Moles/Vol] 3.8 mmol/L Normal 3.5-5.[address] [facility] Comment on above: Performed By: #### 2 546974 #### LUIS MANUEL [facility] [address] [place] [address] Protein [Mass/Vol] 5.5 g/dL Low 6.4-8.2 [facility] Comment on above: Performed By: #### 2 175237 #### LUIS MANUEL [facility] [address] [place] [address] Sodium [Moles/Vol] 138 mmol/L Normal 136-145 [facility] Comment on above: Performed By: #### 2 256088 #### LUIS MANUEL [facility] [address] [place] [address] Urea nitrogen [Mass/Vol] 18 mg/dL Normal 6-23 [facility] Comment on above: Performed By: #### 2 610004 #### LUIS MANUEL [facility] [address] [place] [address] Urea nitrogen/Creatinine [Mass ratio] 20.0 ratio Normal 5.4-30.0 [facility] Comment on above: Performed By: #### 2 176043 #### LUIS MANUEL [facility] [address] [place] [address] Lipid Profileon 03-20-2019 Cholesterol [Mass/Vol] 132 mg/dL Normal 0-199 [facility] Comment on above: Performed By: #### 2 346161 #### LUIS MANUEL [facility] [address] [place] [address] Cholesterol in HDL [Mass/Vol] 34 mg/dL Low 40-60 [facility] Comment on above: Performed By: #### 2 666833 #### LUIS MANUEL [facility] [place] [address] Cholesterol in LDL [Mass/Vol] 77 mg/dL Normal 0-130 [facility] Comment on above: Performed By: #### 2 921789 #### LUIS MANUEL [facility] [place] [address] Cholesterol in VLDL [Mass/Vol] 21 mg/dL Normal 0-40 [facility] Comment on above: Performed By: #### 2 462241 #### LUIS MANUEL [facility] [place] [address] Triglyceride [Mass/Vol] 107 mg/dL Normal 0-149 [facility] Comment on above: Result Comment: AGE DESIRABLE BORDERLINE HIGH 91 D - 9 Y 0 - 74 75 - 99 > 100 10 - 19 Y 0 - 89 90 - 129 > 130 20 - 24 Y 0 - 114 115 - 149 > 150 > 25 0 - 149 150 - 199 200 - 499 Performed By: #### 2 075674 #### LUIS MANUEL [facility] [place] [address] eGFRon 03-20-2019 GFR/1.73 sq M predicted among non-blacks MDRD (S/P/Bld) [Vol rate/Area] mL/min/{1.73_m2} Normal [facility] Comment on above: Order Comment: Order added by Discern Expert. Performed By: #### 2 141019 #### LUIS MANUEL [facility] [place] [address] Auto Diffon 02-24-2019 Basophils (Bld) [#/Vol] 0.0 E3/mcL Normal 0.0-0.2 [facility] Comment on above: Order Comment: Order Added by Discern Expert. Performed By: #### 2 827736 #### LUIS MANUEL [facility] [address] [place] [address] Basophils/100 WBC (Bld) 0.6 % Normal 0.0-2.0 [facility] Comment on above: Order Comment: Order Added by Discern Expert. Performed By: #### 2 441491 #### LUIS MANUEL [facility] [address] [place] [address] Eos Absolute 0.2 E3/mcL Normal 0.0-0.7 [facility] Comment on above: Order Comment: Order Added by Discern Expert. Performed By: #### 2 902586 #### LUIS MANUEL [facility] [address] [place] [address] Eosinophils/100 WBC (Bld) 3.2 % Normal 0.0-11.0 [facility] Comment on above: Order Comment: Order Added by Discern Expert. Performed By: #### 2 478871 #### LUIS MANUEL [facility] [address] [place] [address] Lymphocytes (Bld) [#/Vol] 1.1 E3/mcL Low 1.2-3.4 [facility] Comment on above: Order Comment: Order Added by Discern Expert. Performed By: #### 2 669041 #### LUIS MANUEL [facility] [address] [place] [address] Lymphocytes/100 WBC (Bld) 15.4 % Low 20.0-55.0 [facility] Comment on above: Order Comment: Order Added by Discern Expert. Performed By: #### 2 023730 #### LUIS MANUEL [facility] [address] [place] [address] [place] Absolute 0.8 E3/mcL High 0.0-0.7 [facility] Comment on above: Order Comment: Order Added by Discern Expert. Performed By: #### 2 523475 #### LUIS MANUEL [facility] [address] [place] [address] Monocytes/100 WBC (Bld) 11.2 % High 0.0-10.0 [facility] Comment on above: Order Comment: Order Added by Discern Expert. Performed By: #### 2 636337 #### LUIS MANUEL [facility] [address] [place] [address] Neutro Absolute 5.0 E3/mcL Normal 1.4-6.5 [facility] Comment on above: Order Comment: Order Added by Discern Expert. Performed By: #### 2 119024 #### LUIS MANUEL [facility] [address] [place] [address] Neutro Auto 69.6 % Normal 37.0-75.0 [facility] Comment on above: Order Comment: Order Added by Discern Expert. Performed By: #### 2 565975 #### LUIS MANUEL BoyerHemo [facility] [place] [address] CBC w/ Auto Diffon 9 Erythrocyte distribution width (RBC) [Ratio] 14.0 % Normal 11.5-14.5 [facility] Comment on above: Performed By: #### 2 299958 #### LUIS MANUEL BoyerHemo [facility] [place] [address] Hematocrit (Bld) [Volume fraction] 41.4 % Low 42.0-52.0 [facility] Comment on above: Performed By: #### 2 753051 #### LUIS MANUEL BoyerHemo [facility] [place] [address] Hemoglobin (Bld) [Mass/Vol] 13.9 g/dL Normal 13.5-18.0 [facility] Comment on above: Performed By: #### 2 067817 #### LUIS MANUEL Rem[facility] [address] [place] [address] MCH (RBC) [Entitic mass] 33.7 pg High 27.0-31.0 [facility] Comment on above: Performed By: #### 2 181723 #### LUIS MANUEL Rem[facility] [address] [place] [address] MCHC (RBC) [Mass/Vol] 33.7 g/dL Normal 33.0-37.[address] [facility] Comment on above: Performed By: #### 2 719394 #### LUIS MANUEL Rem[facility] [address] [place] [address] MCV (RBC) [Entitic vol] 100.0 fL Normal 78.0-100.0 [facility] Comment on above: Performed By: #### 2 004905 #### LUIS MANUEL RemHemo [facility] [place] [address] Platelet mean volume (Bld) [Entitic vol] 7.8 fL Normal 7.4-11.0 [facility] Comment on above: Performed By: #### 2 907593 #### LUIS MANUEL [facility] [address] [place] [address] Platelets (Bld) [#/Vol] 245 E3/mcL Normal 130-400 [facility] Comment on above: Performed By: #### 2 723695 #### LUIS MANUEL Bedollao [facility] [place] [address] RBC (Bld) [#/Vol] 4.14 E6/mcL Normal 3.90-6.10 [facility] Comment on above: Performed By: #### 2 103447 #### LUIS MANUEL Bedollao [facility] [place] [address] WBC (Bld) [#/Vol] 7.2 E3/mcL Normal 3.6-11.0 [facility] Comment on above: Performed By: #### 2 121706 #### LUIS MANUEL Bedollao [facility] [place] [address] CMPon 02-24-2019 Albumin [Mass/Vol] 3.8 g/dL Normal 3.4-5.0 [facility] Comment on above: Performed By: #### 2 493405 #### LUIS MANUEL Bedollao [address] [place] [address] Albumin/Globulin [Mass ratio] 1.9 {ratio} Normal 1.1-1.9 [facility] Comment on above: Performed By: #### 2 543634 #### LUIS MANUEL BoyerHemo [facility] [place] [address] Alk Phos 70 Int._Unit/L Normal 33-136 [facility] Comment on above: Performed By: #### 2 022471 #### LUIS MANUEL BoyerHemo [address] [place] [address] ALT [Catalytic activity/Vol] 18 Int._Unit/L Normal 10-52 [facility] Comment on above: Performed By: #### 2 220465 #### LUIS MANUEL BoyerHemo [address] [place] [address] Anion gap [Moles/Vol] 11 mmol/L Normal 10-[address] [facility] Comment on above: Performed By: #### 2 922479 #### LUIS MANUEL BoyerHemo [address] [place] [address] AST [Catalytic activity/Vol] 19 Int._Unit/L Normal 9-39 [facility] Comment on above: Performed By: #### 2 821292 #### LUIS MANUEL BoyerHemo [address] [place] [address] Bili Total 0.83 mg/dL Normal 0.00-1.20 [facility] Comment on above: Performed By: #### 2 779274 #### LUIS MANUEL Rem[facility]emo [address] [place] [address] Calcium [Mass/Vol] 8.8 mg/dL Normal 8.6-10.3 [facility] Comment on above: Performed By: #### 2 754921 #### LUIS MANUEL Rem[facility]emo [address] [place] [address] Chloride [Moles/Vol] 107 mmol/L Normal 98-107 [facility] Comment on above: Performed By: #### 2 181246 #### LUIS MANUEL RemHemo [address] [place] [address] CO2 [Moles/Vol] 25.0 mmol/L Normal 21.0-32.0 [facility] Comment on above: Performed By: #### 2 770952 #### LUIS MANUEL RemHemo [address] [place] [address] Creatinine [Mass/Vol] 0.8 mg/dL Normal 0.5-1.[address] [facility] Comment on above: Performed By: #### 2 386813 #### LUIS MANUEL RemHemo [address] [place] [address] Globulin (S) [Mass/Vol] 2.0 g/dL Normal 2.0-4.0 [facility] Comment on above: Performed By: #### 2 058365 #### LUIS MANUEL RemHemo [address] [place] [address] Glucose [Mass/Vol] 89 mg/dL Normal 70-99 [facility] Comment on above: Performed By: #### 2 444630 #### LUIS MANUEL RemHemo [address] [place] [address] Potassium [Moles/Vol] 3.8 mmol/L Normal 3.5-5.[address] [facility] Comment on above: Performed By: #### 2 [id number] #### LUIS MANUEL BoyerHemo [address] [place] [address] Protein [Mass/Vol] 5.8 g/dL Low 6.4-8.2 [facility] Comment on above: Performed By: #### 2 [id number] #### LUIS MANUEL Bedollao [address] [place] [address] Sodium [Moles/Vol] 139 mmol/L Normal 136-145 [facility] Comment on above: Performed By: #### 2 781284 #### LUIS MANUEL BoyerHemo [facility] [place] [address] Urea nitrogen [Mass/Vol] 17 mg/dL Normal 6-23 [facility] Comment on above: Performed By: #### 2 847098 #### LUIS MANUEL Bedollao [facility] [place] [address] Urea nitrogen/Creatinine [Mass ratio] 21.2 ratio Normal 5.4-30.0 [facility] Comment on above: Performed By: #### 2 850735 #### LUIS MANUEL Bedollao [address] [place] [address] eGFRon 02-24-2019 GFR/1.73 sq M predicted among non-blacks MDRD (S/P/Bld) [Vol rate/Area] mL/min/{1.73_m2} Normal [facility] Comment on above: Order Comment: Order Added by Discern Expert. Performed By: #### 2 974229 #### LUIS MANUEL BoyerHemo [address] [place] [address] Auto Diffon 11-23-2018 Basophils (Bld) [#/Vol] 0.0 E3/mcL Normal 0.0-0.2 [facility] Comment on above: Order Comment: Order Added by Discern Expert. Performed By: #### 2 080598 #### LUIS MANUEL Bedollao [facility]5 [place] [address] Basophils/100 WBC (Bld) 0.3 % Normal 0.0-2.0 [facility] Comment on above: Order Comment: Order Added by Discern Expert. Performed By: #### 2 [id number] #### LUIS MANUEL BoyerHemo [address] [place] [address] Eos Absolute 0.1 E3/mcL Normal 0.0-0.7 [facility] Comment on above: Order Comment: Order Added by Discern Expert. Performed By: #### 2 637272 #### LUIS MANUEL RemHemo [address] [place] [address] Eosinophils/100 WBC (Bld) 1.5 % Normal 0.0-11.0 [facility] Comment on above: Order Comment: Order Added by Discern Expert. Performed By: #### 2 801404 #### ULIS MANUEL RemHemo [address] [place] [address] Lymphocytes (Bld) [#/Vol] 1.1 E3/mcL Low 1.2-3.4 [facility] Comment on above: Order Comment: Order Added by Discern Expert. Performed By: #### 2 461183 #### LUIS MANUEL RemHemo [address] [place] [address] Lymphocytes/100 WBC (Bld) 13.9 % Low 20.0-55.0 [facility] Comment on above: Order Comment: Order Added by Discern Expert. Performed By: #### 2 002373 #### LUIS MANUEL RemHemo [address] [place] [address] [place] Absolute 0.8 E3/mcL High 0.0-0.7 [facility] Comment on above: Order Comment: Order Added by Discern Expert. Performed By: #### 2 818018 #### LUIS MANUEL RemHemo [address] [place] [address] Monocytes/100 WBC (Bld) 10.5 % High 0.0-10.0 [facility] Comment on above: Order Comment: Order Added by Discern Expert. Performed By: #### 2 175943 #### LUIS MANUEL RemHemo [address] [place] [address] Neutro Absolute 5.8 E3/mcL Normal 1.4-6.5 [facility] Comment on above: Order Comment: Order Added by Discern Expert. Performed By: #### 2 024052 #### LUIS MANUEL RemHemo [address] [place] [address] Neutro Auto 73.8 % Normal 37.0-75.0 [facility] Comment on above: Order Comment: Order Added by Discern Expert. Performed By: #### 2 290421 #### LUIS MANUEL BoyerHemo [facility]5 [place] [address] CBC w/ Auto Diffon 9 Erythrocyte distribution width (RBC) [Ratio] 13.4 % Normal 11.5-14.5 [facility] Comment on above: Performed By: #### 2 310049 #### LUIS MANUEL Bdeollao [facility] [place] [id number] Hematocrit (Bld) [Volume fraction] 43.0 % Normal 42.0-52.0 [facility] Comment on above: Performed By: #### 2 964162 #### LUIS MANUEL Bedollao [address] [place], [place] [address] Hemoglobin (Bld) [Mass/Vol] 14.3 g/dL Normal 13.5-18.0 [facility] Comment on above: Performed By: #### 2 938730 #### LUIS MANUEL BoyerHemo [address] [place], [place] [address] MCH (RBC) [Entitic mass] 33.5 pg High 27.0-31.0 [facility] Comment on above: Performed By: #### 2 663620 #### LUIS MANUEL BoyerHemo [address] [place], [place] [address] MCHC (RBC) [Mass/Vol] 33.2 g/dL Normal 33.0-37.[address] [facility] Comment on above: Performed By: #### 2 067135 #### LUIS MANUEL BoyerHemo [address] [place] [address] MCV (RBC) [Entitic vol] 101.0 fL High 78.0-100.0 [facility] Comment on above: Performed By: #### 2 129686 #### LUIS MANUEL BoyerHemo [facility] [place] [address] Platelet mean volume (Bld) [Entitic vol] 8.1 fL Normal 7.4-11.0 [facility] Comment on above: Performed By: #### 2 635852 #### LUIS MANUEL BoyerHemo [facility] [place] [address] Platelets (Bld) [#/Vol] 260 E3/mcL Normal 130-400 [facility] Comment on above: Performed By: #### 2 849045 #### LUIS MANUEL Bedollao [facility]5 [place] [address] RBC (Bld) [#/Vol] 4.25 E6/mcL Normal 3.90-6.10 [facility] Comment on above: Performed By: #### 2 995131 #### LUIS MANUEL Bedollao [facility] [place] [address] WBC (Bld) [#/Vol] 7.9 E3/mcL Normal 3.6-11.0 [facility] Comment on above: Performed By: #### 2 100485 #### LUIS MANUEL Bedollao [facility]5 [place] [address] CMPon 11-23-2018 Albumin [Mass/Vol] 4.2 g/dL Normal 3.4-5.0 [facility] Comment on above: Performed By: #### 2 163214 #### LUIS MANUEL BoyerHemo [address] [place] [address] Albumin/Globulin [Mass ratio] 2.1 {ratio} High 1.1-1.9 [facility] Comment on above: Performed By: #### 2 642579 #### LUIS MANUEL Bedollao [address] [place] [address] Alk Phos 66 Int._Unit/L Normal 33-136 [facility] Comment on above: Performed By: #### 2 323809 #### LUIS MANUEL BoyerHemo [facility] [place] [address] ALT [Catalytic activity/Vol] 18 Int._Unit/L Normal 10-52 [facility] Comment on above: Performed By: #### 2 370330 #### LUIS MANUEL BoyerHemo [address] [place] [address] Anion gap [Moles/Vol] 9 mmol/L Low 10-[address] [facility] Comment on above: Performed By: #### 2 772154 #### LUIS MANUEL BoyerHemo [address] [place] [address] AST [Catalytic activity/Vol] 19 Int._Unit/L Normal 9-39 [facility] Comment on above: Performed By: #### 2 355178 #### LUIS MANUEL RemHemo [address] [place] [address] Bili Total 0.78 mg/dL Normal 0.00-1.20 [facility] Comment on above: Performed By: #### 2 814085 #### LUIS MANUEL RemHemo [address] [place] [address] Calcium [Mass/Vol] 9.1 mg/dL Normal 8.6-10.3 [facility] Comment on above: Performed By: #### 2 695634 #### LUIS MANUEL RemHemo [address] [place] [address] Chloride [Moles/Vol] 108 mmol/L High 98-107 [facility] Comment on above: Performed By: #### 2 590503 #### LUIS MANUEL RemHemo [address] [place] [address] CO2 [Moles/Vol] 28.0 mmol/L Normal 21.0-32.0 [facility] Comment on above: Performed By: #### 2 456545 #### LUIS MANUEL RemHemo [address] [place] [address] Creatinine [Mass/Vol] 0.9 mg/dL Normal 0.5-1.[address] [facility] Comment on above: Performed By: #### 2 178935 #### LUIS MANUEL RemHemo [address] [place] [address] Globulin (S) [Mass/Vol] 2.0 g/dL Normal 2.0-4.0 [facility] Comment on above: Performed By: #### 2 610463 #### LUIS MANUEL RemHemo [address] [place] [address] Glucose [Mass/Vol] 81 mg/dL Normal 70-99 [facility] Comment on above: Performed By: #### 2 576049 #### LUIS MANUEL RemHemo [address] [place] [address] Potassium [Moles/Vol] 3.8 mmol/L Normal 3.5-5.[address] [facility] Comment on above: Performed By: #### 2 481579 #### LUIS MANUEL RemHemo [address] [place] [address] Protein [Mass/Vol] 6.2 g/dL Low 6.4-8.2 [facility] Comment on above: Performed By: #### 2 281318 #### LUIS MANUEL Bedollao [address] [place] [address] Sodium [Moles/Vol] 142 mmol/L Normal 136-145 [facility] Comment on above: Performed By: #### 2 538601 #### LUIS MANUEL BoyerHemo [address] [place] [address] Urea nitrogen [Mass/Vol] 26 mg/dL High 6-23 [facility] Comment on above: Performed By: #### 2 952373 #### LUIS MANUEL BoyerHemo [address] [place] [address] Urea nitrogen/Creatinine [Mass ratio] 28.9 ratio Normal 5.4-30.0 [facility] Comment on above: Performed By: #### 2 772410 #### LUIS MANUEL BoyerHemo [address] [place] [address] eGFRon 11-23-2018 GFR/1.73 sq M predicted among non-blacks MDRD (S/P/Bld) [Vol rate/Area] mL/min/{1.73_m2} Normal [facility] Comment on above: Order Comment: Order Added by Discern Expert. Performed By: #### 2 499767 #### LUIS MANUEL Bedollao [address] [place] [address] CMPon 09-09-2018 Albumin [Mass/Vol] 3.9 g/dL Normal 3.4-5.0 [facility] Comment on above: Performed By: #### 2 504290 #### LUIS MANUEL BoyerChem [address] [place] [address] Albumin/Globulin [Mass ratio] 2.3 {ratio} High 1.1-1.9 [facility] Comment on above: Performed By: #### 2 540506 #### LUIS MANUEL BoyerChem [facility] [place] [address] Alk Phos 68 Int._Unit/L Normal 33-136 [facility] Comment on above: Performed By: #### 2 717245 #### LUIS MANUEL BoyerChem [address] [place] [address] ALT [Catalytic activity/Vol] 22 Int._Unit/L Normal 10-52 [facility] Comment on above: Performed By: #### 2 424386 #### LUIS MANUELReji BoyerChem [facility] [place] [address] AST [Catalytic activity/Vol] 20 Int._Unit/L Normal 9-39 [facility] Comment on above: Performed By: #### 2 346860 #### LUIS MANUEL BoyerChem [address] [place] [address] Bili Total 0.8 mg/dL Normal 0.0-1.2 [facility] Comment on above: Performed By: #### 2 116977 #### LUIS MANUEL BoyerChem [facility] [place] [address] Calcium [Mass/Vol] 8.8 mg/dL Normal 8.6-10.3 [facility] Comment on above: Performed By: #### 2 432705 #### LUIS MANUEL Boyer[address] [address] Chloride [Moles/Vol] 106 mmol/L Normal 98-107 [facility] Comment on above: Performed By: #### 2 395689 #### LUIS MANUEL BoyerChem [address] [place] [address] CO2 [Moles/Vol] 27.0 mmol/L Normal 21.0-32.0 [facility] Comment on above: Performed By: #### 2 211634 #### LUIS MANUEL [place] [address] [place] [address] Creatinine [Mass/Vol] 0.8 mg/dL Normal 0.5-1.[address] [facility] Comment on above: Performed By: #### 2 110341 #### LUIS MANUEL RemChem [address] [place] [address] Globulin (S) [Mass/Vol] 2.0 g/dL Normal 2.0-4.0 [facility] Comment on above: Performed By: #### 2 211216 #### LUIS MANUEL BoyerChem [address] [place] [address] Glucose [Mass/Vol] 89 mg/dL Normal 70-99 [facility] Comment on above: Performed By: #### 2 928764 #### LUIS MANUEL RemChem [address] [place] [address] Potassium [Moles/Vol] 3.7 mmol/L Normal 3.5-5.[address] [facility] Comment on above: Performed By: #### 2 971026 #### ULIS MANUEL RemChem [address] [place] [address] Protein [Mass/Vol] 5.6 g/dL Low 6.4-8.2 [facility] Comment on above: Performed By: #### 2 122727 #### LUIS MANUEL RemChem [address] [place] [address] Sodium [Moles/Vol] 139 mmol/L Normal 136-145 [facility] Comment on above: Performed By: #### 2 624176 #### LUIS MANUEL RemChem [address] [place] [address] Urea nitrogen [Mass/Vol] 21 mg/dL Normal 6-23 [facility] Comment on above: Performed By: #### 2 860353 #### LUIS MANUEL RemChem [address] [place] [address] Urea nitrogen/Creatinine [Mass ratio] 26.2 ratio Normal 5.4-30.0 [facility] Comment on above: Performed By: #### 2 663977 #### LUIS MANUEL RemChem [address] [place] [address] Anion gap [Moles/Vol] 10 mmol/L Normal 10-[address] [facility] Comment on above: Performed By: #### 2 712256 #### LUIS MANUEL RemChem [address] [place] [address] LDL Directon 09-09-2018 Cholesterol in LDL [Mass/Vol] 106 mg/dL Normal 0-129 [facility] Comment on above: Performed By: #### 2 839873 #### LUIS MANUEL BoyerHemo [address] [place] [address] eGFRon 09-09-2018 GFR/1.73 sq M predicted among non-blacks MDRD (S/P/Bld) [Vol rate/Area] mL/min/{1.73_m2} Normal [facility] Comment on above: Order Comment: Order added by Discern Expert. Performed By: #### 1 [id number] #### LUIS MANUEL RemChem [address] [place] [address] Auto Diffon 08-30-2018 Basophils (Bld) [#/Vol] 0.1 E3/mcL Normal 0.0-0.2 [facility] Comment on above: Order Comment: Order Added by Discern Expert. Performed By: #### 2 183433 #### LUIS MANUEL RemHemo [address] [place] [address] Basophils/100 WBC (Bld) 0.8 % Normal 0.0-2.0 [facility] Comment on above: Order Comment: Order Added by Discern Expert. Performed By: #### 2 805752 #### LUIS MANUEL RemHemo [address] [place] [address] Eos Absolute 0.2 E3/mcL Normal 0.0-0.7 [facility] Comment on above: Order Comment: Order Added by Discern Expert. Performed By: #### 2 105301 #### LUIS MANUEL RemHemo [address] [place] [address] Eosinophils/100 WBC (Bld) 2.6 % Normal 0.0-11.0 [facility] Comment on above: Order Comment: Order Added by Discern Expert. Performed By: #### 2 060683 #### LUIS MANUEL RemHemo [address] [place] [address] Lymphocytes (Bld) [#/Vol] 1.3 E3/mcL Normal 1.2-3.4 [facility] Comment on above: Order Comment: Order Added by Discern Expert. Performed By: #### 2 796650 #### LUIS MANUEL RemHemo [address] [place] [address] Lymphocytes/100 WBC (Bld) 17.4 % Low 20.0-55.0 [facility] Comment on above: Order Comment: Order Added by Discern Expert. Performed By: #### 2 041989 #### LUIS MANUEL RemHemo [address] [place] [address] [place] Absolute 0.7 E3/mcL Normal 0.0-0.7 [facility] Comment on above: Order Comment: Order Added by Discern Expert. Performed By: #### 2 876127 #### LUIS MANUEL BoyerHemo [address] [place] [address] Monocytes/100 WBC (Bld) 9.2 % Normal 0.0-10.0 [facility] Comment on above: Order Comment: Order Added by Discern Expert. Performed By: #### 2 273162 #### LUIS MANUEL BoyerHemo [address] [place] [address] Neutro Absolute 5.2 E3/mcL Normal 1.4-6.5 [facility] Comment on above: Order Comment: Order Added by Discern Expert. Performed By: #### 2 203678 #### LUIS MANUEL RemHemo [address] [place] [address] Neutro Auto 70.0 % Normal 37.0-75.0 [facility] Comment on above: Order Comment: Order Added by Discern Expert. Performed By: #### 2 468807 #### LUIS MANUEL BoyerHemo [address] [place] [address] CBC w/ Auto Diffon Erythrocyte distribution width (RBC) [Ratio] 14.0 % Normal 11.5-14.5 [facility] Comment on above: Performed By: #### 2 726223 #### LUIS MANUEL BoyerHemo [address] [place] [address] Hematocrit (Bld) [Volume fraction] 40.9 % Low 42.0-52.0 [facility] Comment on above: Performed By: #### 2 455440 #### LUIS MANUEL BoyerHemo [address] [place] [address] Hemoglobin (Bld) [Mass/Vol] 13.9 g/dL Normal 13.5-18.0 [facility] Comment on above: Performed By: #### 2 876756 #### LUIS MANUEL RemHemo [address] [place] [address] MCH (RBC) [Entitic mass] 34.0 pg High 27.0-31.0 [facility] Comment on above: Performed By: #### 2 346570 #### LUIS MANUEL RemHemo [address] [place] [address] MCHC (RBC) [Mass/Vol] 33.9 g/dL Normal 33.0-37.[address] [facility] Comment on above: Performed By: #### 2 731342 #### LUIS MANUEL RemHemo [address] [place] [address] MCV (RBC) [Entitic vol] 100.3 fL High 78.0-100.0 [facility] Comment on above: Performed By: #### 2 547741 #### LUIS MANUEL RemHemo [address] [place] [address] Platelet mean volume (Bld) [Entitic vol] 7.9 fL Normal 7.4-11.0 [facility] Comment on above: Performed By: #### 2 150685 #### LUIS MANUEL RemHemo [address] [place] [address] Platelets (Bld) [#/Vol] 247 E3/mcL Normal 130-400 [facility] Comment on above: Performed By: #### 2 867768 #### LUIS MANUEL RemHemo [address] [place] [address] RBC (Bld) [#/Vol] 4.08 E6/mcL Normal 3.90-6.10 [facility] Comment on above: Performed By: #### 2 895668 #### LUIS MANUEL BoyerHemo [address] [place] [address] WBC (Bld) [#/Vol] 7.4 E3/mcL Normal 3.6-11.0 [facility] Comment on above: Performed By: #### 2 874770 #### LUIS MANUEL RemHemo [address] [place] [address] CMPon 08-30-2018 Albumin [Mass/Vol] 3.9 g/dL Normal 3.4-5.0 [facility] Comment on above: Performed By: #### 2 057114 #### LUIS MANUEL RemChem [address] [place] [address] Albumin/Globulin [Mass ratio] 2.4 {ratio} High 1.1-1.9 [facility] Comment on above: Performed By: #### 2 361928 #### LUIS MANUEL RemChem [address] [place] [address] Alk Phos 64 Int._Unit/L Normal 33-136 [facility] Comment on above: Performed By: #### 2 112556 #### LUIS MANUEL RemChem [address] [place] [address] ALT [Catalytic activity/Vol] 20 Int._Unit/L Normal 10-52 [facility] Comment on above: Performed By: #### 2 779872 #### LUIS MANUEL RemChem [address] [place] [address] Anion gap [Moles/Vol] 9 mmol/L Low 10-[address] [facility] Comment on above: Performed By: #### 2 328314 #### LUIS MANUEL RemChem [address] [place] [address] AST [Catalytic activity/Vol] 20 Int._Unit/L Normal 9-39 [facility] Comment on above: Performed By: #### 2 964165 #### LUIS MANUEL RemChem [address] [place] [address] Bili Total 0.8 mg/dL Normal 0.0-1.2 [facility] Comment on above: Performed By: #### 2 180348 #### LUIS MANUEL RemChem [address] [place] [address] Calcium [Mass/Vol] 8.8 mg/dL Normal 8.6-10.3 [facility] Comment on above: Performed By: #### 2 179598 #### LUIS MANUEL RemChem [address] [place] [address] Chloride [Moles/Vol] 107 mmol/L Normal 98-107 [facility] Comment on above: Performed By: #### 2 122877 #### LUIS MANUEL RemChem [address] [place] [address] CO2 [Moles/Vol] 27.0 mmol/L Normal 21.0-32.0 [facility] Comment on above: Performed By: #### 2 424501 #### LUIS MANUEL RemChem [address] [place] [address] Creatinine [Mass/Vol] 0.8 mg/dL Normal 0.5-1.[address] [facility] Comment on above: Performed By: #### 2 529973 #### LUIS MANUEL RemChem [address] [place] [address] Globulin (S) [Mass/Vol] 2.0 g/dL Normal 2.0-4.0 [facility] Comment on above: Performed By: #### 2 780713 #### LUIS MANUEL BoyerChem [address] [place] [address] Glucose [Mass/Vol] 88 mg/dL Normal 70-99 [facility] Comment on above: Performed By: #### 2 335076 #### LUIS MANUEL RemChem [address] [place] [address] Potassium [Moles/Vol] 3.9 mmol/L Normal 3.5-5.[address] [facility] Comment on above: Performed By: #### 2 806897 #### LUIS MANUEL RemChem [facility] [place] [address] Protein [Mass/Vol] 5.5 g/dL Low 6.4-8.2 [facility] Comment on above: Performed By: #### 2 261759 #### LUIS MANUEL RemChem [facility] [place] [address] Sodium [Moles/Vol] 139 mmol/L Normal 136-145 [facility] Comment on above: Performed By: #### 2 335227 #### LUIS MANUEL RemYeapoo [address] [place] [address] Urea nitrogen [Mass/Vol] 22 mg/dL Normal 6-23 [facility] Comment on above: Performed By: #### 2 391679 #### LUIS MANUEL RemChem [facility] [place] [address] Urea nitrogen/Creatinine [Mass ratio] 27.5 ratio Normal 5.4-30.0 [facility] Comment on above: Performed By: #### 2 951592 #### LUIS MANUEL Rem[facility] [address] [place] [address] eGFRon 08-30-2018 GFR/1.73 sq M predicted among non-blacks MDRD (S/P/Bld) [Vol rate/Area] mL/min/{1.73_m2} Normal [facility] Comment on above: Order Comment: Order added by Discern Expert. Performed By: #### 1 [id number] #### LUIS MANUEL Rem[facility] [address] [place] [address] Auto Diffon 08-10-2018 Basophils (Bld) [#/Vol] 0.0 E3/mcL Normal 0.0-0.2 [facility] Comment on above: Order Comment: Order Added by Discern Expert. Performed By: #### 2 728336 #### LUIS MANUEL RemHemo [address] [place] [address] Basophils/100 WBC (Bld) 0.6 % Normal 0.0-2.0 [facility] Comment on above: Order Comment: Order Added by Discern Expert. Performed By: #### 2 695663 #### LUIS MANUEL RemHemo [address] [place] [address] Eos Absolute 0.2 E3/mcL Normal 0.0-0.7 [facility] Comment on above: Order Comment: Order Added by Discern Expert. Performed By: #### 2 159176 #### LUIS MANUEL RemHemo [address] [place] [address] Eosinophils/100 WBC (Bld) 2.6 % Normal 0.0-11.0 [facility] Comment on above: Order Comment: Order Added by Discern Expert. Performed By: #### 2 306371 #### LUIS MANUEL RemHemo [address] [place] [address] Lymphocytes (Bld) [#/Vol] 1.5 E3/mcL Normal 1.2-3.4 [facility] Comment on above: Order Comment: Order Added by Discern Expert. Performed By: #### 2 566219 #### LUIS MANUEL RemHemo [address] [place] [address] Lymphocytes/100 WBC (Bld) 19.5 % Low 20.0-55.0 [facility] Comment on above: Order Comment: Order Added by Discern Expert. Performed By: #### 2 735655 #### LUIS MANUEL RemHemo [address] [place] [address] [place] Absolute 0.6 E3/mcL Normal 0.0-0.7 [facility] Comment on above: Order Comment: Order Added by Discern Expert. Performed By: #### 2 691839 #### LUIS MANUEL RemHemo [address] [place] [address] Monocytes/100 WBC (Bld) 8.2 % Normal 0.0-10.0 [facility] Comment on above: Order Comment: Order Added by Discern Expert. Performed By: #### 2 022310 #### LUIS MANUEL BoyerHemo [address] [place] [address] Neutro Absolute 5.4 E3/mcL Normal 1.4-6.5 [facility] Comment on above: Order Comment: Order Added by Discern Expert. Performed By: #### 2 363953 #### LUIS MANUEL BoyerHemo [facility] [place] 2440805 Neutro Auto 69.1 % Normal 37.0-75.0 [facility] Comment on above: Order Comment: Order Added by Discern Expert. Performed By: #### 2 120507 #### LUIS MANUEL Bedollao [facility] [place] [id number] CBC w/ Auto Diffon 8 Erythrocyte distribution width (RBC) [Ratio] 13.2 % Normal 11.5-14.5 [facility] Comment on above: Performed By: #### 2 257281 #### LUIS MANUEL Bedollao [address] [place], [place] [address] Hematocrit (Bld) [Volume fraction] 41.1 % Low 42.0-52.0 [facility] Comment on above: Performed By: #### 2 559868 #### LUIS MANUEL Bedollao [address] [place], [place] [address] Hemoglobin (Bld) [Mass/Vol] 14.0 g/dL Normal 13.5-18.0 [facility] Comment on above: Performed By: #### 2 717230 #### LUIS MANUEL BoyerHemo [address] [place] [address] MCH (RBC) [Entitic mass] 34.4 pg High 27.0-31.0 [facility] Comment on above: Performed By: #### 2 863156 #### LUIS MANUEL BoyerHemo [facility] [place] [address] MCHC (RBC) [Mass/Vol] 34.2 g/dL Normal 33.0-37.[address] [facility] Comment on above: Performed By: #### 2 189673 #### LUIS MANUEL BoyerHemo [address] [place] [address] MCV (RBC) [Entitic vol] 100.5 fL High 78.0-100.0 [facility] Comment on above: Performed By: #### 2 189832 #### LUIS MANUEL Bedollao [facility] [place] [address] Platelet mean volume (Bld) [Entitic vol] 8.2 fL Normal 7.4-11.0 [facility] Comment on above: Performed By: #### 2 [id number] #### LUIS MANUEL BoyerHemo [address] [place] [address] Platelets (Bld) [#/Vol] 247 E3/mcL Normal 130-400 [facility] Comment on above: Performed By: #### 2 [id number] #### LUIS MANUEL Bedollao [address] [place] [address] 12669 RBC (Bld) [#/Vol] 4.08 E6/mcL Normal 3.90-6.10 [facility] Comment on above: Performed By: #### 2 [id number] #### LUIS MANUEL Bedollao [address] [place] [address] 76763 WBC (Bld) [#/Vol] 7.9 E3/mcL Normal 3.6-11.0 [facility] Comment on above: Performed By: #### 2 [id number] #### LUIS MANUEL Bedollao [address] [place] [address] 50027 CMPon 05-31-2018 Albumin [Mass/Vol] 3.7 g/dL Normal 3.2-5.0 [facility] Comment on above: Performed By: #### 2 [id number] #### LUIS MANUEL Stein [address] [place] [address] 10239 Albumin/Globulin [Mass ratio] 1.6 {ratio} Normal 1.1-1.9 [facility] Comment on above: Performed By: #### 2 [id number] #### LUIS MANUEL BoyerMike [facility] [place] [address] Alk Phos 57 Int._Unit/L Normal 42-121 [facility] Comment on above: Performed By: #### 2 [id number] #### LUIS MANUEL RosalindMike [facility] [place] [address] ALT [Catalytic activity/Vol] 29 Int._Unit/L Normal 10-40 [facility] Comment on above: Performed By: #### 2 [id number] #### LUIS MANUEL [employer] [address] [place] [address] AST [Catalytic activity/Vol] 25 Int._Unit/L Normal 10-42 [facility] Comment on above: Performed By: #### 2 [id number] #### LUIS MANUEL [employer] [address] [place] [address] Bili Total 1.0 mg/dL Normal 0.2-1.0 [facility] Comment on above: Performed By: #### 2 [id number] #### LUIS MANUEL [employer] [address] [place] [address] Calcium [Mass/Vol] 8.9 mg/dL Normal 8.4-10.2 [facility] Comment on above: Performed By: #### 2 [id number] #### LUIS MANUEL [employer] [address] [place] [address] 11412 Chloride [Moles/Vol] 105 mmol/L Normal 98-107 [facility] Comment on above: Performed By: #### 2 [id number] #### LUIS MANUEL [employer] [address] [place] [address] CO2 [Moles/Vol] 24.6 mmol/L Normal 24.0-30.0 [facility] Comment on above: Performed By: #### 2 [id number] #### LUIS MANUEL [employer] [address] [place] [address] Creatinine [Mass/Vol] 0.8 mg/dL Normal 0.6-1.[address] [facility] Comment on above: Performed By: #### 2 [id number] #### LUIS MANUEL [employer] [address] [place] [address] Globulin (S) [Mass/Vol] 2.3 g/dL Normal 2.0-4.0 [facility] Comment on above: Performed By: #### 2 [id number] #### LUIS MANUEL [employer] [address] [place] [address] Glucose [Mass/Vol] 92 mg/dL Normal 70-99 [facility] Comment on above: Performed By: #### 2 [id number] #### LUIS MANUEL [employer] [address] [place] [address] Potassium [Moles/Vol] 3.5 mmol/L Normal 3.5-5.[address] [facility] Comment on above: Performed By: #### 2 [id number] #### LUIS MANUEL Stein [facility] [place] [address] Protein [Mass/Vol] 6.0 g/dL Low 6.4-8.3 [facility] Comment on above: Performed By: #### 2 [id number] #### LUIS MANUEL Stein [address] [place] [address] Sodium [Moles/Vol] 139 mmol/L Normal 136-145 [facility] Comment on above: Performed By: #### 2 [id number] #### LUIS MANUEL Stein [facility] [place] [address] Urea nitrogen [Mass/Vol] 23 mg/dL High 7-18 [facility] Comment on above: Performed By: #### 2 [id number] #### LUIS MANUEL Stein [facility] [place] [address] Urea nitrogen/Creatinine [Mass ratio] 28.8 ratio Normal 5.4-30.0 [facility] Comment on above: Performed By: #### 2 [id number] #### LUIS MANUEL Stein [facility] [place] [address] eGFRon 05-31-2018 GFR/1.73 sq M predicted among non-blacks MDRD (S/P/Bld) [Vol rate/Area] mL/min/{1.73_m2} Normal [facility] Comment on above: Order Comment: Order added by Discern Expert. Performed By: #### 1 [id number] #### LUIS MANUEL Stein [address] [place] [address] No Panel Information [facility] Vital Signs Date Time Vital Sign Value Performing Clinician Facility 08-09-2025 13:00-0400 Body temperature 97 [degF] Kelsey Patel MD Work Phone: [facility] 08-09-2025 13:00-0400 Diastolic blood pressure 81 mm[Hg] Kelsey Patel MD Work Phone: [facility] 08-09-2025 13:00-0400 Heart rate 62 /min Kelsey Patel MD Work Phone: [facility] 08-09-2025 13:00-0400 Respiratory rate 17 /min Kelsey Patel MD Work Phone: [facility] 08-09-2025 13:00-0400 SaO2% (BldA) [Mass fraction] 95 % Kelsey Patel MD Work Phone: [facility] 08-09-2025 13:00-0400 Systolic blood pressure 137 mm[Hg] Kelsey Patel MD Work Phone: [facility] 08-06-2025 14:42-0400 Body height 167.6 cm Kelsey Patel MD Work Phone: [facility] 08-06-2025 14:42-0400 Body mass index (BMI) [Ratio] 23.24 kg/m2 Kelsey Patel MD Work Phone: [facility] 08-06-2025 14:42-0400 Body weight 65.3 kg Kelsey Patel MD Work Phone: [facility] 08-04-2025 11:24-0400 Diastolic blood pressure 67 mm[Hg] Santiago Menendez DO Work Phone: [facility] 08-04-2025 11:24-0400 Heart rate 66 /min Santiago Menendez DO Work Phone: [facility] 08-04-2025 11:24-0400 Respiratory rate 18 /min Santiago Menendez DO Work Phone: [facility] 08-04-2025 11:24-0400 SaO2% (BldA) [Mass fraction] 98 % Santiago Menendez DO Work Phone: [facility] 08-04-2025 11:24-0400 Systolic blood pressure 160 mm[Hg] Santiago Menendez DO Work Phone: [facility] 08-04-2025 07:27-0400 Body height 167.6 cm Santiago Menendez DO Work Phone: [facility] 08-04-2025 07:27-0400 Body mass index (BMI) [Ratio] 23.24 kg/m2 Santiago Menendez DO Work Phone: [facility] 08-04-2025 07:27-0400 Body temperature 97.81 [degF] Santiago Menendez DO Work Phone: [facility] 08-04-2025 07:27-0400 Body weight 65.32 kg Santiago Menendez DO Work Phone: [facility] 07-31-2025 13:50-0400 Body height 167.6 cm Don Barrera MD Work Phone: [facility] 07-31-2025 13:50-0400 Body mass index (BMI) [Ratio] 23.21 kg/m2 Don Barrera MD Work Phone: [facility] 07-31-2025 13:50-0400 Body weight 65.23 kg Don Barrera MD Work Phone: [facility] 07-31-2025 13:50-0400 Diastolic blood pressure 50 mm[Hg] Don Barrera MD Work Phone: [facility] 07-31-2025 13:50-0400 Heart rate 68 /min Don Barrera MD Work Phone: [facility] 07-31-2025 13:50-0400 SaO2% (BldA) [Mass fraction] 95 % Don Barrera MD Work Phone: [facility] 07-31-2025 13:50-0400 Systolic blood pressure 90 mm[Hg] Don Barrera MD Work Phone: [facility] 07-17-2025 08:17-0400 Body height 167.6 cm Don Barrera MD Work Phone: [facility] 07-17-2025 08:17-0400 Body mass index (BMI) [Ratio] 23.37 kg/m2 oDn Barrera MD Work Phone: [facility] 07-17-2025 08:17-0400 Body weight 65.68 kg Don Barrera MD Work Phone: 3(848)938-863512 [place] [address] 07-17-2025 08:17-0400 Diastolic blood pressure 60 mm[Hg] Don Barrera MD Work Phone: 0(381)421-544246 [address] 07-17-2025 08:17-0400 Heart rate 99 /min Don Barrera MD Work Phone: 9(853)352-278012 [place] [address] 07-17-2025 08:17-0400 SaO2% (BldA) [Mass fraction] 97 % Don Barrera MD Work Phone: 3(448)724-253412 [place] [address] 07-17-2025 08:17-0400 Systolic blood pressure 100 mm[Hg] Don Barrera MD Work Phone: 9(788)925-819812 [place] [address] 07-16-2025 13:24-0400 Body temperature 98.1 [degF] Dr. Devan Barrera MD Work Phone: 0(580)284-235796 [place] [address] 07-16-2025 13:24-0400 Diastolic blood pressure 58 mm[Hg] Dr. Devan Barrera MD Work Phone: 0(712)807-297296 [place] [address] 07-16-2025 13:24-0400 Heart rate 83 /min Dr. Devan Barrera MD Work Phone: 0(798)174-068396 [place] [address] 07-16-2025 13:24-0400 Respiratory rate 16 /min Dr. Devan Barrera MD Work Phone: 2(459)919-505096 [place] [address] 07-16-2025 13:24-0400 SaO2% (BldA) [Mass fraction] 95 % Dr. Devan Barrera MD Work Phone: 0(526)717-194096 [place] [address] 07-16-2025 13:24-0400 Systolic blood pressure 100 mm[Hg] Dr. Devan Barrera MD Work Phone: [facility] 07-14-2025 14:00-0400 Body mass index (BMI) [Ratio] 23.4 kg/m2 Dr. Devan Barrera MD Work Phone: [facility] 07-14-2025 14:00-0400 Body weight 65.[address] Devan Barrera MD Work Phone: 9(140)465-133196 [place] [address] 07-08-2025 14:55-0400 Body height 167.[address] Devan Barrera MD Work Phone: 9(941)527-959196 [place] [address] 06-17-2025 17:52-0400 Diastolic blood pressure 66 mm[Hg] Dr. Devan Barrera MD Work Phone: 3(437)773-653496 [place] [address] 06-17-2025 17:52-0400 Heart rate 77 /min Dr. Devan Barrera MD Work Phone: 4(101)342-876296 [place] [address] 06-17-2025 17:52-0400 Respiratory rate 18 /min Dr. Devan Barrera MD Work Phone: 6(037)924-898796 [place] [address] 06-17-2025 17:52-0400 SaO2% (BldA) [Mass fraction] 94 % Dr. Devan Barrera MD Work Phone: [facility] 06-17-2025 17:52-0400 Systolic blood pressure 126 mm[Hg] Dr. Devan Barrera MD Work Phone: [facility] 06-17-2025 17:29-0400 Body temperature 98.4 [degF] Dr. Devan Barrera MD Work Phone: [facility] 06-17-2025 17:29-0400 Diastolic blood pressure 70 mm[Hg] Dr. Devan Barrera MD Work Phone: [facility] 06-17-2025 17:29-0400 Heart rate 78 /min Dr. Devan Barrera MD Work Phone: 1(000)428-783296 [place] [address] 06-17-2025 17:29-0400 Respiratory rate 16 /min Dr. Devan Barrera MD Work Phone: [facility] 06-17-2025 17:29-0400 SaO2% (BldA) [Mass fraction] 97 % Dr. Devan Barrera MD Work Phone: [facility] 06-17-2025 17:29-0400 Systolic blood pressure 136 mm[Hg] Dr. Devan Barrera MD Work Phone: 3(221)672-068496 [place] [address] 06-17-2025 14:38-0400 Body height 167.[address] Devan Barrera MD Work Phone: 2(161)517-159096 [place] [address] 06-17-2025 14:38-0400 Body mass index (BMI) [Ratio] 24.1 kg/m2 Dr. Devan Barrera MD Work Phone: 2(851)587-273196 [place] [address] 06-17-2025 14:38-0400 Body weight 67.[address] Devan Barrera MD Work Phone: 4(319)510-386396 [place] [address] 06-17-2025 12:38-0400 Body weight 65.[address] Devan Barrera MD Work Phone: 6(688)775-494196 [place] [address] 06-17-2025 10:01-0400 Body temperature 97.6 [degF] Dr. Devan Barerra MD Work Phone: 2(646)439-889196 [place] [address] 06-16-2025 15:00-0400 Body mass index (BMI) [Ratio] 23.1 kg/m2 Dr. Devan Barrera MD Work Phone: 3(331)676-347196 [place] [address] 06-01-2025 13:16-0400 Heart rate 79 /min Dr. Devan Barrera MD Work Phone: 3(484)059-721496 [place] [address] 06-01-2025 13:16-0400 Inhaled oxygen flow rate 98 L/min Dr. Devan Barrera MD Work Phone: 4(606)182-347896 [place] [address] 06-01-2025 13:16-0400 Respiratory rate 20 /min Dr. Devan Barrera MD Work Phone: [facility] 06-01-2025 06:40-0400 SaO2% (BldA) [Mass fraction] 92 % Dr. Devan Barrera MD Work Phone: [facility] 05-31-2025 10:54-0400 Body temperature 97.8 [degF] Dr. Devan Barrera MD Work Phone: [facility] 05-31-2025 10:54-0400 Diastolic blood pressure 57 mm[Hg] Dr. Devan Barrera MD Work Phone: 3(682)747-093996 [place] [address] 05-31-2025 10:54-0400 Systolic blood pressure 114 mm[Hg] Dr. Devan Barrera MD Work Phone: [facility] 05-27-2025 15:10-0400 Heart rate 85 /min Dr. Devan Barrera MD Work Phone: 9(153)881-159096 [place] [address] 05-27-2025 15:10-0400 Respiratory rate 18 /min Dr. Devan Barrera MD Work Phone: 5(968)009-603496 [place] [address] 05-27-2025 14:48-0400 Body height 167.[address] Devan Barrera MD Work Phone: [facility] 05-27-2025 14:48-0400 Body weight 63.[address] Devan Barrera MD Work Phone: [facility] 05-27-2025 11:34-0400 Inhaled oxygen flow rate 2 L/min Dr. Devan Barrera MD Work Phone: [facility] 05-27-2025 10:49-0400 SaO2% (BldA) [Mass fraction] 96 % Dr. Devan Barrera MD Work Phone: [facility] 05-27-2025 10:31-0400 Diastolic blood pressure 63 mm[Hg] Dr. Devan Barrera MD Work Phone: [facility] 05-27-2025 10:31-0400 Systolic blood pressure 140 mm[Hg] Dr. Devan Barrera MD Work Phone: [facility] 05-27-2025 10:00-0400 Body temperature 98.1 [degF] Dr. Devan Barrera MD Work Phone: [facility] 05-26-2025 22:18-0400 Diastolic blood pressure 64 mm[Hg] Dr. Devan Barrera MD Work Phone: [facility] 05-26-2025 22:18-0400 Heart rate 82 /min Dr. Devan Barrera MD Work Phone: [facility] 05-26-2025 22:18-0400 Systolic blood pressure 119 mm[Hg] Dr. Devan Barrera MD Work Phone: [facility] 05-26-2025 22:15-0400 Inhaled oxygen flow rate 2 L/min Dr. Devan Barrera MD Work Phone: [facility] 05-26-2025 22:15-0400 SaO2% (BldA) [Mass fraction] 98 % Dr. Devan Barrera MD Work Phone: [facility] 05-26-2025 19:05-0400 Respiratory rate 18 /min Dr. Devan Barrera MD Work Phone: [facility] 05-26-2025 15:42-0400 Body temperature 98.3 [degF] Dr. Devan Barrera MD Work Phone: [facility] 05-26-2025 09:15-0400 Body temperature 99.3 [degF] Dr. Devan Barrera MD Work Phone: [facility] 05-26-2025 09:15-0400 Diastolic blood pressure 51 mm[Hg] Dr. Devan Barrera MD Work Phone: [facility] 05-26-2025 09:15-0400 Heart rate 85 /min Dr. Devan Barrera MD Work Phone: [facility] 05-26-2025 09:15-0400 Inhaled oxygen flow rate 4 L/min Dr. Devan Barrera MD Work Phone: [facility] 05-26-2025 09:15-0400 Respiratory rate 20 /min Dr. Devan Barrera MD Work Phone: [facility] 05-26-2025 09:15-0400 SaO2% (BldA) [Mass fraction] 96 % Dr. Devan Barrera MD Work Phone: [facility] 05-26-2025 09:15-0400 Systolic blood pressure 99 mm[Hg] Dr. Devan Barrera MD Work Phone: [facility] 05-26-2025 06:17-0400 Body height 167.[address] Devan Barrera MD Work Phone: [facility] 05-26-2025 06:17-0400 Body mass index (BMI) [Ratio] 23.5 kg/m2 Dr. Devan Barrera MD Work Phone: [facility] 05-26-2025 06:17-0400 Body weight 66.[address] Devan Barrera MD Work Phone: [facility] 05-21-2025 12:27-0400 Body weight 63.[address] Devan Barrera MD Work Phone: [facility] 05-20-2025 18:06-0400 Body mass index (BMI) [Ratio] 22.6 kg/m2 Dr. Devan Barrera MD Work Phone: [facility] 05-20-2025 13:00-0400 Heart rate 81 /min Carri Greer MD Work Phone: [facility] 05-20-2025 13:00-0400 SaO2% (BldA) [Mass fraction] 89 % Carri Greer MD Work Phone: [facility] 05-20-2025 12:45-0400 Body temperature 97.7 [degF] Carri Greer MD Work Phone: [facility] 05-20-2025 12:45-0400 Diastolic blood pressure 78 mm[Hg] Carri Greer MD Work Phone: [facility] 05-20-2025 12:45-0400 Respiratory rate 16 /min Carri Greer MD Work Phone: [facility] 05-20-2025 12:45-0400 Systolic blood pressure 149 mm[Hg] Carri Greer MD Work Phone: [facility] 05-10-2025 21:57-0400 Body height 167.6 cm Carri Greer MD Work Phone: [facility] 05-10-2025 21:57-0400 Body mass index (BMI) [Ratio] 23.57 kg/m2 Carri Greer MD Work Phone: [facility] 05-10-2025 21:57-0400 Body weight 66.22 kg Carri Greer MD Work Phone: [facility] 05-10-2025 20:16-0400 Diastolic blood pressure 57 mm[Hg] Santiago Menendez DO Work Phone: [facility] 05-10-2025 20:16-0400 Heart rate 85 /min Santiago Menendez DO Work Phone: [facility] 05-10-2025 20:16-0400 Respiratory rate 16 /min Santiago Menendez DO Work Phone: [facility] 05-10-2025 20:16-0400 SaO2% (BldA) [Mass fraction] 93 % Santiago Menendez DO Work Phone: [facility] 05-10-2025 20:16-0400 Systolic blood pressure 108 mm[Hg] Santiago Menendez DO Work Phone: [facility] 05-10-2025 13:56-0400 Body height 167.6 cm Santiago Menendez DO Work Phone: [facility] 05-10-2025 13:56-0400 Body mass index (BMI) [Ratio] 23.57 kg/m2 Santiago Menendez DO Work Phone: [facility] 05-10-2025 13:56-0400 Body temperature 97.9 [degF] Santiago Menendez DO Work Phone: [facility] 05-10-2025 13:56-0400 Body weight 66.22 kg Santiago Menendez DO Work Phone: [facility] 05-07-2025 15:22-0400 Body height 167.6 cm Don Barrera MD Work Phone: [facility] 05-07-2025 15:22-0400 Body mass index (BMI) [Ratio] 23.6 kg/m2 Don Barrera MD Work Phone: [facility] 05-07-2025 15:22-0400 Body weight 66.32 kg Don Barrera MD Work Phone: [facility] 05-07-2025 15:22-0400 Diastolic blood pressure 70 mm[Hg] Don Barrera MD Work Phone: [facility] 05-07-2025 15:22-0400 Heart rate 71 /min Don Barrera MD Work Phone: [facility] 05-07-2025 15:22-0400 SaO2% (BldA) [Mass fraction] 95 % Don Barrera MD Work Phone: [facility] 05-07-2025 15:22-0400 Systolic blood pressure 120 mm[Hg] Don Barrera MD Work Phone: [facility] 04-10-2025 11:09-0400 Body height 167.6 cm Lincoln FUENTES Work Phone: [facility] 04-10-2025 11:09-0400 Body mass index (BMI) [Ratio] 24.37 kg/m2 Lincoln King [employer] Work Phone: [facility] 04-10-2025 11:09-0400 Body temperature 97.59 [degF] Lincoln Christine [employer] Work Phone: [facility] 04-10-2025 11:09-0400 Body weight 68.49 kg Lincoln Collierta [employer] Work Phone: [facility] 04-10-2025 11:09-0400 Diastolic blood pressure 79 mm[Hg] Lincoln Collierta [employer] Work Phone: [facility] 04-10-2025 11:09-0400 SaO2% (BldA) [Mass fraction] 97 % Lincoln Collierta [employer] Work Phone: [facility] 04-10-2025 11:09-0400 Systolic blood pressure 144 mm[Hg] Lincoln Collierta [employer] Work Phone: [facility] 04-10-2025 07:57-0400 Body temperature 97.7 [degF] Eladio Kingsley Jr., DPM Work Phone: [facility] 04-10-2025 07:57-0400 Diastolic blood pressure 74 mm[Hg] Eladio Kingsley Jr., DPM Work Phone: [facility] 04-10-2025 07:57-0400 Heart rate 59 /min Eladio Kingsley Jr., DPM Work Phone: [facility] 04-10-2025 07:57-0400 Systolic blood pressure 125 mm[Hg] Eladio Kingsley Jr., DPM Work Phone: [facility] 01-09-2025 08:09-0400 Body temperature 97.59 [degF] Eladio Kingsley Jr., DPM Work Phone: [facility] 01-09-2025 08:09-0400 Diastolic blood pressure 72 mm[Hg] Eladio Kingsley Jr., DPM Work Phone: [facility] 01-09-2025 08:09-0400 Heart rate 60 /min Eladio Kingsley Jr., DPM Work Phone: [facility] 01-09-2025 08:09-0400 Systolic blood pressure 127 mm[Hg] Eladio Kingsley Jr., DPM Work Phone: [facility] 11-20-2024 07:59-0500 Body height 167.6 cm Don Barrera MD Work Phone: [facility] 11-20-2024 07:59-0500 Body mass index (BMI) [Ratio] 24.66 kg/m2 Don Barrera MD Work Phone: [facility] 11-20-2024 07:59-0500 Body weight 69.31 kg Don Barrera MD Work Phone: [facility] 11-20-2024 07:59-0500 Diastolic blood pressure 70 mm[Hg] Don Barrera MD Work Phone: [facility] 11-20-2024 07:59-0500 Heart rate 65 /min Don Barrera MD Work Phone: [facility] 11-20-2024 07:59-0500 SaO2% (BldA) [Mass fraction] 99 % Don Barrera MD Work Phone: [facility] 11-20-2024 07:59-0500 Systolic blood pressure 110 mm[Hg] Don Barrera MD Work Phone: [facility] 10-01-2024 08:02-0500 Diastolic blood pressure 73 mm[Hg] Eladio Kingsley Jr., DPM Work Phone: [facility] 10-01-2024 08:02-0500 Heart rate 59 /min Eladio Kingsley Jr., DPM Work Phone: [facility] 10-01-2024 08:02-0500 Systolic blood pressure 135 mm[Hg] Eladio Kingsley Jr. DPM Work Phone: [facility] 10-01-2024 07:58-0500 Body temperature 98.2 [degF] Eladio Kingsley Jr., DPM Work Phone: [facility] 09-01-2024 11:43-0500 Body height 167.6 cm Don Barrera MD Work Phone: [facility] 09-01-2024 11:43-0500 Body mass index (BMI) [Ratio] 24.31 kg/m2 Don Barrera MD Work Phone: [facility] 09-01-2024 11:43-0500 Body weight 68.31 kg Don Barrera MD Work Phone: [facility] 09-01-2024 11:43-0500 Diastolic blood pressure 80 mm[Hg] Don Barrera MD Work Phone: [facility] 09-01-2024 11:43-0500 Heart rate 139 /min Don Barrera MD Work Phone: [facility] 09-01-2024 11:43-0500 SaO2% (BldA) [Mass fraction] 96 % Don Barrera MD Work Phone: [facility] 09-01-2024 11:43-0500 Systolic blood pressure 150 mm[Hg] Don Barrera MD Work Phone: [facility] 07-03-2024 11:57-0400 Body height 167.6 cm Otoniel Salcedo MD Work Phone: [facility] 07-03-2024 11:57-0400 Body mass index (BMI) [Ratio] 24.16 kg/m2 Otoniel Salcedo MD Work Phone: [facility] 07-03-2024 11:57-0400 Body weight 67.9 kg Otoniel Salcedo MD Work Phone: [facility] 07-03-2024 11:57-0400 Diastolic blood pressure 62 mm[Hg] Otoniel Salcedo MD Work Phone: [facility] 07-03-2024 11:57-0400 Heart rate 63 /min Otoniel Salcedo MD Work Phone: [facility] 07-03-2024 11:57-0400 SaO2% (BldA) [Mass fraction] 96 % Otoniel Salcedo MD Work Phone: [facility] 07-03-2024 11:57-0400 Systolic blood pressure 126 mm[Hg] Otoniel Salcedo MD Work Phone: [facility] 06-06-2024 07:58-0400 Body temperature 97.9 [degF] Eladio Kingsley Jr., DPM Work Phone: [facility] 06-06-2024 07:58-0400 Diastolic blood pressure 63 mm[Hg] Eladio Kingsley Jr., DPM Work Phone: [facility] 06-06-2024 07:58-0400 Heart rate 71 /min Eladio Kingsley Jr., DPM Work Phone: [facility] 06-06-2024 07:58-0400 Systolic blood pressure 105 mm[Hg] Eladio Kingsley Jr., DPM Work Phone: [facility] 02-29-2024 07:59-0400 Body temperature 97.2 [degF] Eladio Kingsley Jr., DPM Work Phone: [facility] 02-29-2024 07:59-0400 Diastolic blood pressure 80 mm[Hg] Eladio Kingsley Jr., DPM Work Phone: [facility] 02-29-2024 07:59-0400 Heart rate 64 /min Eladio Kingsley Jr., DPM Work Phone: [facility] 02-29-2024 07:59-0400 Systolic blood pressure 144 mm[Hg] Eladio Kingsley Jr., DPM Work Phone: [facility] 02-12-2024 09:13-0400 Body mass index (BMI) [Ratio] 24.29 kg/m2 Sage Kwon MD Work Phone: [facility] 02-12-2024 09:13-0400 Body weight 68.27 kg Sage Kwon MD Work Phone: [facility] 02-12-2024 09:13-0400 Diastolic blood pressure 73 mm[Hg] Sage Kwon MD Work Phone: [facility] 02-12-2024 09:13-0400 Heart rate 70 /min Sage Kwon MD Work Phone: [facility] 02-12-2024 09:13-0400 Respiratory rate 16 /min Sage Kwon MD Work Phone: [facility] 02-12-2024 09:13-0400 SaO2% (BldA) [Mass fraction] 97 % Sage Kwon MD Work Phone: [facility] 02-12-2024 09:13-0400 Systolic blood pressure 138 mm[Hg] Sage Kwon MD Work Phone: [facility] 12-07-2023 13:00-0500 Diastolic blood pressure 58 mm[Hg] Celso Cabezas DO Work Phone: [facility] 12-07-2023 13:00-0500 Heart rate 73 /min Celso Cabezas DO Work Phone: [facility] 12-07-2023 13:00-0500 Respiratory rate 18 /min Celso Cabezas DO Work Phone: [facility] 12-07-2023 13:00-0500 SaO2% (BldA) [Mass fraction] 97 % Celso Cabezas DO Work Phone: [facility] 12-07-2023 13:00-0500 Systolic blood pressure 118 mm[Hg] Celso Cabezas DO Work Phone: [facility] 12-07-2023 10:01-0500 Body height 167.6 cm Celso Cabezas DO Work Phone: [facility] 12-07-2023 10:01-0500 Body mass index (BMI) [Ratio] 29.05 kg/m2 Celso Cabezas DO Work Phone: [facility] 12-07-2023 10:01-0500 Body temperature 96.91 [degF] Celso Cabezas DO Work Phone: [facility] 12-07-2023 10:01-0500 Body weight 81.65 kg Celso Cabezas DO Work Phone: [facility] 11-30-2023 07:59-0500 Body temperature 98.29 [degF] Eladio Kingsley Jr., DPM Work Phone: [facility] 11-30-2023 07:59-0500 Diastolic blood pressure 73 mm[Hg] Eladio Kingsley Jr., DPM Work Phone: [facility] 11-30-2023 07:59-0500 Heart rate 68 /min Eladio Kingsley Jr., DPM Work Phone: [facility] 11-30-2023 07:59-0500 Systolic blood pressure 125 mm[Hg] Eladio Kingsley Jr., DPM Work Phone: [facility] 11-15-2023 19:43-0500 Diastolic blood pressure 60 mm[Hg] Celso Davin DO Work Phone: [facility] 11-15-2023 19:43-0500 Heart rate 70 /min Celso Davin DO Work Phone: [facility] 11-15-2023 19:43-0500 Respiratory rate 16 /min Celso Cabeazs DO Work Phone: [facility] 11-15-2023 19:43-0500 SaO2% (BldA) [Mass fraction] 98 % Celso Cabezas DO Work Phone: [facility] 11-15-2023 19:43-0500 Systolic blood pressure 157 mm[Hg] Celso Cabezas DO Work Phone: [facility] 11-15-2023 15:58-0500 Body height 167.6 cm Celso Cabezas DO Work Phone: [facility] 11-15-2023 15:58-0500 Body mass index (BMI) [Ratio] 25.18 kg/m2 Celso Cabezas DO Work Phone: [facility] 11-15-2023 15:58-0500 Body weight 70.76 kg Celso Cabezas DO Work Phone: [facility] 11-15-2023 15:56-0500 Body temperature 97.39 [degF] Celso Cabezas DO Work Phone: [facility] 11-15-2023 08:13-0500 Body height 167.6 cm Daysi Arenas DO Work Phone: [facility] 11-15-2023 08:13-0500 Body mass index (BMI) [Ratio] 25.24 kg/m2 Daysi Castorenaae DO Work Phone: [facility] 11-15-2023 08:13-0500 Body weight 70.94 kg Daysi Castorenaae DO Work Phone: [facility] 11-11-2023 22:23-0500 Diastolic blood pressure 69 mm[Hg] Sai Myers MD Work Phone: [facility] 11-11-2023 22:23-0500 Heart rate 88 /min Sai Myers MD Work Phone: [facility] 11-11-2023 22:23-0500 Respiratory rate 16 /min Sai Myers MD Work Phone: [facility] 11-11-2023 22:23-0500 Systolic blood pressure 162 mm[Hg] Sai Myers MD Work Phone: [facility] 11-11-2023 20:45-0500 Body height 167.6 cm Sai Myers MD Work Phone: [facility] 11-11-2023 20:45-0500 Body mass index (BMI) [Ratio] 25.82 kg/m2 Sai Myers MD Work Phone: [facility] 11-11-2023 20:45-0500 Body temperature 97.7 [degF] Sai Myers MD Work Phone: [facility] 11-11-2023 20:45-0500 Body weight 72.58 kg Sai Myers MD Work Phone: [facility] 11-11-2023 20:45-0500 SaO2% (BldA) [Mass fraction] 97 % Sai Myers MD Work Phone: [facility] 11-05-2023 08:06-0500 Body height 167.6 cm Don Barrera MD Work Phone: [facility] 11-05-2023 08:06-0500 Body mass index (BMI) [Ratio] 25.24 kg/m2 Don Barrera MD Work Phone: [facility] 11-05-2023 08:06-0500 Body weight 70.94 kg Don Barrera MD Work Phone: [facility] 11-05-2023 08:06-0500 Diastolic blood pressure 62 mm[Hg] Don Barrera MD Work Phone: [facility] 11-05-2023 08:06-0500 Heart rate 65 /min Don Barrera MD Work Phone: [facility] 11-05-2023 08:06-0500 SaO2% (BldA) [Mass fraction] 99 % Don Barrera MD Work Phone: [facility] 11-05-2023 08:06-0500 Systolic blood pressure 130 mm[Hg] Don Barrera MD Work Phone: [facility] 11-01-2023 13:09-0500 Body height 167.6 cm Daysi Thomae DO Work Phone: [facility] 11-01-2023 13:09-0500 Body mass index (BMI) [Ratio] 25.6 kg/m2 Daysi Thomae DO Work Phone: [facility] 11-01-2023 13:09-0500 Body weight 71.94 kg Daysi Thomae DO Work Phone: [facility] 10-31-2023 07:58-0500 Body temperature 97.9 [degF] Eladio Kingsley Jr., DPM Work Phone: [facility] 10-31-2023 07:58-0500 Diastolic blood pressure 69 mm[Hg] Eladio Kingsley Jr., DPM Work Phone: [facility] 10-31-2023 07:58-0500 Heart rate 67 /min Eladio Kingsley Jr., DPM Work Phone: [facility] 10-31-2023 07:58-0500 Systolic blood pressure 116 mm[Hg] Eladio Kingsley Jr., DPM Work Phone: [facility] 10-24-2023 08:43-0500 Diastolic blood pressure 77 mm[Hg] Eladio Kingsley Jr., DPM Work Phone: [facility] 10-24-2023 08:43-0500 Heart rate 58 /min Eladio Kingsley Jr., DPM Work Phone: [facility] 10-24-2023 08:43-0500 Systolic blood pressure 148 mm[Hg] Eladio Sancho Jr., DPM Work Phone: [facility] 10-24-2023 08:27-0500 Body temperature 98.2 [degF] Eladiohailey Kingsley Jr., DPM Work Phone: [facility] 10-12-2023 08:07-0500 Diastolic blood pressure 75 mm[Hg] Eladiohailey Kingsley Jr., DPM Work Phone: [facility] 10-12-2023 08:07-0500 Heart rate 65 /min Eladiohailey Kingsley Jr., DPM Work Phone: [facility] 10-12-2023 08:07-0500 Systolic blood pressure 148 mm[Hg] Eladiohailey Kingsley Jr., DPM Work Phone: [facility] 10-12-2023 08:01-0500 Body temperature 98.2 [degF] Eladiohailey Kingsley Jr., DPM Work Phone: [facility] 10-06-2023 12:15-0500 Body height 167.6 cm Clark Nabeel PA-C Work Phone: [facility] 10-06-2023 12:15-0500 Body mass index (BMI) [Ratio] 25.66 kg/m2 Clark Nabeel PA-C Work Phone: [facility] 10-06-2023 12:15-0500 Body temperature 97.39 [degF] Clark Nabeel PA-C Work Phone: [facility] 10-06-2023 12:15-0500 Body weight 72.12 kg Clark Nabeel PA-C Work Phone: [facility] 10-06-2023 12:15-0500 Diastolic blood pressure 83 mm[Hg] Clark Nabeel PA-C Work Phone: [facility] 10-06-2023 12:15-0500 Heart rate 72 /min Clark Nabeel PA-C Work Phone: [facility] 10-06-2023 12:15-0500 Respiratory rate 14 /min Clark Nabeel PA-C Work Phone: [facility] 10-06-2023 12:15-0500 SaO2% (BldA) [Mass fraction] 96 % Clark Nabeel PA-C Work Phone: [facility] 10-06-2023 12:15-0500 Systolic blood pressure 173 mm[Hg] Clark Nabeel PA-C Work Phone: [facility] 09-28-2023 14:21-0500 Body height 167.6 cm Don Barrera MD Work Phone: [facility] 09-28-2023 14:21-0500 Body mass index (BMI) [Ratio] 25.66 kg/m2 Don Barrera MD Work Phone: [facility] 09-28-2023 14:21-0500 Body weight 72.12 kg Don Barrera MD Work Phone: [facility] 09-28-2023 14:21-0500 Diastolic blood pressure 66 mm[Hg] Don Barrera MD Work Phone: [facility] 09-28-2023 14:21-0500 Heart rate 78 /min Don Barrera MD Work Phone: [facility] 09-28-2023 14:21-0500 SaO2% (BldA) [Mass fraction] 96 % Don Barrera MD Work Phone: [facility] 09-28-2023 14:21-0500 Systolic blood pressure 120 mm[Hg] Don Barrera MD Work Phone: [facility] 07-23-2023 01:01-0400 Diastolic blood pressure 76 mm[Hg] Sai Myers MD Work Phone: [facility] 07-23-2023 01:01-0400 Heart rate 60 /min Sai Myers MD Work Phone: [facility] 07-23-2023 01:01-0400 Respiratory rate 16 /min Sai Myers MD Work Phone: [facility] 07-23-2023 01:01-0400 SaO2% (BldA) [Mass fraction] 94 % Sai Myers MD Work Phone: [facility] 07-23-2023 01:01-0400 Systolic blood pressure 146 mm[Hg] Sai Myers MD Work Phone: [facility] 07-22-2023 21:49-0400 Body height 167.6 cm Sai Myers MD Work Phone: [facility] 07-22-2023 21:49-0400 Body mass index (BMI) [Ratio] 25.82 kg/m2 Sai Myers MD Work Phone: [facility] 07-22-2023 21:49-0400 Body temperature 97.7 [degF] Sai Myers MD Work Phone: [facility] 07-22-2023 21:49-0400 Body weight 72.58 kg Sai Myers MD Work Phone: [facility] 06-21-2023 08:29-0400 Body height 165.1 cm Don Barrera Work Phone: CM-Ypzbumonpj-Pjza [address] Work Phone: 06-21-2023 08:29-0400 Body mass index (BMI) [Ratio] 26.5 kg/m2 Don Barrera Work Phone: OC-Zhyvxxugtq-Rbyx [address] Work Phone: 06-21-2023 08:29-0400 Body surface area Derived from formula 1.8 m2 Don Barrera Work Phone: EG-Uocparjikw-Pijb [address] Work Phone: 06-21-2023 08:29-0400 Body weight 72.24 kg Don Barrera Work Phone: BF-Ekyslxmgoa-Pyrs [address] Work Phone: 06-21-2023 08:29-0400 Diastolic blood pressure 60 mm[Hg] Don Barrera Work Phone: RF-Zgdtjvbhxy-Flki [address] Work Phone: 06-21-2023 08:29-0400 Heart rate 91 /min Don Barrera Work Phone: RW-Gpjmzapouo-Qoyj [address] Work Phone: 06-21-2023 08:29-0400 SaO2% (BldA) [Mass fraction] 96 % Don Barrera Work Phone: OI-Wqhgwinnig-Syhj [address] Work Phone: 06-21-2023 08:29-0400 Systolic blood pressure 118 mm[Hg] Don Barrera Work Phone: KJ-Vrpvwosuvk-Qbie [address] Work Phone: 05-31-2023 14:45-0400 Body height 165.1 cm Don Barrera MD Work Phone: [facility] 05-31-2023 14:45-0400 Body mass index (BMI) [Ratio] 26.43 kg/m2 Don Barrera MD Work Phone: [facility] 05-31-2023 14:45-0400 Body weight 72.03 kg Don Barrera MD Work Phone: [facility] 05-31-2023 14:45-0400 Diastolic blood pressure 60 mm[Hg] Don Barrera MD Work Phone: [facility] 05-31-2023 14:45-0400 Heart rate 64 /min Don Barrera MD Work Phone: [facility] 05-31-2023 14:45-0400 SaO2% (BldA) [Mass fraction] 95 % Don Barrera MD Work Phone: [facility] 05-31-2023 14:45-0400 Systolic blood pressure 120 mm[Hg] Don Barrera MD Work Phone: [facility] 05-04-2023 08:06-0400 Body height 165.1 cm Don Barrera MD Work Phone: [facility] 05-04-2023 08:06-0400 Body mass index (BMI) [Ratio] 26.24 kg/m2 Don Barrera MD Work Phone: [facility] 05-04-2023 08:06-0400 Body weight 71.53 kg Don Barrera MD Work Phone: [facility] 05-04-2023 08:06-0400 Diastolic blood pressure 60 mm[Hg] Don Barrera MD Work Phone: [facility] 05-04-2023 08:06-0400 Heart rate 61 /min Don Barrera MD Work Phone: [facility] 05-04-2023 08:06-0400 SaO2% (BldA) [Mass fraction] 98 % Don Barrera MD Work Phone: [facility] 05-04-2023 08:06-0400 Systolic blood pressure 116 mm[Hg] Don Barrera MD Work Phone: [facility] 02-09-2023 08:08-0400 Diastolic blood pressure 77 mm[Hg] Eladio Kingsley Jr., DPM Work Phone: [facility] 02-09-2023 08:08-0400 Heart rate 57 /min Eladio Kingsley Jr., DPM Work Phone: [facility] 02-09-2023 08:08-0400 Systolic blood pressure 147 mm[Hg] Eladio Halln Jr., DPM Work Phone: [facility] 02-09-2023 08:05-0400 Body temperature 97.3 [degF] Eladio Halln Jr., DPM Work Phone: [facility] 11-17-2022 08:03-0500 Body temperature 97 [degF] Eladio Halln Jr., DPM Work Phone: [facility] 11-17-2022 08:03-0500 Diastolic blood pressure 83 mm[Hg] Eladio Sancho Jr., DPM Work Phone: [facility] 11-17-2022 08:03-0500 Heart rate 65 /min Eladio Halln Jr., DPM Work Phone: [facility] 11-17-2022 08:03-0500 Systolic blood pressure 130 mm[Hg] Eladio Halln Jr., DPM Work Phone: [facility] 10-27-2022 08:41-0500 Body height 165.1 cm Don Barrera Work Phone: [facility] Work Phone: 10-27-2022 08:41-0500 Body mass index (BMI) [Ratio] 26.79 kg/m2 Don Barrera Work Phone: [facility] Work Phone: 10-27-2022 08:41-0500 Body surface area Derived from formula 1.8 m2 Don Barrera Work Phone: [facility] Work Phone: 10-27-2022 08:41-0500 Body weight 73.03 kg Don Barrera Work Phone: [facility] Work Phone: 10-27-2022 08:41-0500 Diastolic blood pressure 66 mm[Hg] Christopher D Barrera Work Phone: [facility] Work Phone: 10-27-2022 08:41-0500 Heart rate 59 /min Christailyner D Barrera Work Phone: [facility] Work Phone: 10-27-2022 08:41-0500 SaO2% (BldA) [Mass fraction] 99 % Christailyner Cande Sheltond Work Phone: [facility] Work Phone: 10-27-2022 08:41-0500 Systolic blood pressure 132 mm[Hg] Christailyner D Barrera Work Phone: [facility] Work Phone: 09-23-2022 10:31-0500 Body height 168 cm Don Sheltond Other Phone: [facility] 09-23-2022 10:31-0500 Body temperature 98.24 [degF] Christopher Barrera Other Phone: [facility] 09-23-2022 10:31-0500 Diastolic blood pressure 85 mm[Hg] Christopher Barrera Other Phone: [facility] 09-23-2022 10:31-0500 Heart rate 80 /min Christopher Barrera Other Phone: [facility] 09-23-2022 10:31-0500 Respiratory rate 16 /min Christopher Barrera Other Phone: [facility] 09-23-2022 10:31-0500 SaO2% (BldA) [Mass fraction] 96 % Christopher Barrera Other Phone: [facility] 09-23-2022 10:31-0500 Systolic blood pressure 153 mm[Hg] Christopher Barrera Other Phone: [facility] 08-18-2022 07:57-0400 Body temperature 97 [degF] Eladio Kingsley Jr., DPM Work Phone: [facility] 08-18-2022 07:57-0400 Diastolic blood pressure 75 mm[Hg] Eladio Kingsley Jr., DPM Work Phone: [facility] 08-18-2022 07:57-0400 Heart rate 53 /min Eladio Kingsley Jr., DPM Work Phone: [facility] 08-18-2022 07:57-0400 Systolic blood pressure 131 mm[Hg] Eladio Kingsley Jr., DPM Work Phone: [facility] 06-15-2022 08:23-0400 Body height 165.1 cm Don Barrera Work Phone: PN-Sxvnqdqrkx-Jtvk [address] Work Phone: 06-15-2022 08:23-0400 Body mass index (BMI) [Ratio] 27.22 kg/m2 Don Barrera Work Phone: BA-Fcwmvnllig-Epkt [address] Work Phone: 06-15-2022 08:23-0400 Body surface area Derived from formula 1.82 m2 Don Barrera Work Phone: QO-Wxhhgkogag-Klpr [address] Work Phone: 06-15-2022 08:23-0400 Body weight 74.21 kg Don Barrera Work Phone: BG-Qaitsltjbl-Eqat [address] Work Phone: 06-15-2022 08:23-0400 Diastolic blood pressure 80 mm[Hg] Don Barrera Work Phone: HZ-Kcernmmkbz-Rmys [address] Work Phone: 06-15-2022 08:23-0400 Heart rate 79 /min Don Barrera Work Phone: GG-Ylaihhdkji-Ytdj [address] Work Phone: 06-15-2022 08:23-0400 SaO2% (BldA) [Mass fraction] 98 % [place] Cande Barrera Work Phone: KP-Ufftxmyemx-Zghh [address] Work Phone: 06-15-2022 08:23-0400 Systolic blood pressure 138 mm[Hg] Don Barrera Work Phone: JK-Fzlfsvoabh-Wgir [address] Work Phone: 05-19-2022 08:10-0400 Body temperature 97.3 [degF] Eladio Kingsley Jr., DPM Work Phone: [facility] 05-19-2022 08:10-0400 Diastolic blood pressure 66 mm[Hg] Eladio Kingsley Jr., DPM Work Phone: [facility] 05-19-2022 08:10-0400 Heart rate 70 /min Eladio Kingsley Jr., DPM Work Phone: [facility] 05-19-2022 08:10-0400 Systolic blood pressure 110 mm[Hg] Eladio Kingsley Jr., DPM Work Phone: [facility] 05-17-2022 13:04-0400 Body mass index (BMI) [Ratio] 27.46 kg/m2 Alokailyndequan Barrera Work Phone: GQ-Mwiovvgoji-Syqz [address] Work Phone: 05-17-2022 13:04-0400 Body surface area Derived from formula 1.82 m2 Don Barrera Work Phone: ZX-Dusftaellf-Reym [address] Work Phone: 05-17-2022 13:04-0400 Body weight 74.84 kg Don Barrera Work Phone: PD-Alqvjfsnje-Qjdl [address] Work Phone: 05-17-2022 13:04-0400 Diastolic blood pressure 89 mm[Hg] Don Baptiste Barrera Work Phone: QK-Wtemwywtde-Dyog [address] Work Phone: 05-17-2022 13:04-0400 Heart rate 64 /min Don Baptiste Barrera Work Phone: NO-Huiipiefwd-Qguv [address] Work Phone: 05-17-2022 13:04-0400 Systolic blood pressure 137 mm[Hg] Don Barrera Work Phone: KO-Gqafitvmaw-Qlxl [address] Work Phone: 04-26-2022 08:24-0400 Body height 165.1 cm Don Barrera Work Phone: [facility] Work Phone: 04-26-2022 08:24-0400 Body mass index (BMI) [Ratio] 27.83 kg/m2 Don Barrera Work Phone: [facility] Work Phone: 04-26-2022 08:24-0400 Body surface area Derived from formula 1.83 m2 Don Barrera Work Phone: [facility] Work Phone: 04-26-2022 08:24-0400 Body weight 75.86 kg Don Barrera Work Phone: [facility] Work Phone: 04-26-2022 08:24-0400 Diastolic blood pressure 70 mm[Hg] Don Barrera Work Phone: [facility] Work Phone: 04-26-2022 08:24-0400 Heart rate 70 /min Don Barrera Work Phone: [facility] Work Phone: 04-26-2022 08:24-0400 SaO2% (BldA) [Mass fraction] 96 % Don Barrera Work Phone: [facility] Work Phone: 04-26-2022 08:24-0400 Systolic blood pressure 140 mm[Hg] Don Barrera Work Phone: [facility] Work Phone: 02-27-2022 11:02-0400 Body height 165.1 cm Don Barrera Work Phone: [facility] Work Phone: 02-27-2022 11:02-0400 Body mass index (BMI) [Ratio] 26.96 kg/m2 Don Barrera Work Phone: [facility] Work Phone: 02-27-2022 11:02-0400 Body surface area Derived from formula 1.81 m2 Don Barrera Work Phone: [facility] Work Phone: 02-27-2022 11:02-0400 Body weight 73.48 kg Don Barrera Work Phone: [facility] Work Phone: 02-27-2022 11:02-0400 Diastolic blood pressure 60 mm[Hg] Don Barrera Work Phone: [facility] Work Phone: 02-27-2022 11:02-0400 Heart rate 64 /min Don Barrera Work Phone: [facility] Work Phone: 02-27-2022 11:02-0400 SaO2% (BldA) [Mass fraction] 97 % Don Barrera Work Phone: [facility] Work Phone: 02-27-2022 11:02-0400 Systolic blood pressure 110 mm[Hg] Don Barrera Work Phone: [facility] Work Phone: 02-15-2022 09:34-0400 Body temperature 98.1 [degF] Eladio Kingsley Jr., DPM Work Phone: [facility] 02-15-2022 09:34-0400 Diastolic blood pressure 85 mm[Hg] Eladio Kingsley Jr., DPM Work Phone: [facility] 02-15-2022 09:34-0400 Heart rate 65 /min Eladio Kingsley Jr., DPM Work Phone: [facility] 02-15-2022 09:34-0400 Systolic blood pressure 131 mm[Hg] Eladio Kingsley Jr., DPM Work Phone: [facility] 11-15-2021 11:23-0500 Body mass index (BMI) [Ratio] [...] Phone: 11-15-2021 11:23-0500 Heart rate 69 /min Don Barrera Work Phone: [facility] Work Phone: 11-15-2021 11:23-0500 Respiratory rate 16 /min Don Barrera Work Phone: [facility] Work Phone: 11-15-2021 11:23-0500 Systolic blood pressure 111 mm[Hg] Don Barrera Work Phone: [facility] Work Phone: 11-04-2021 08:03-0500 Body temperature 98.1 [degF] Eladio Kingsley Jr., DPM Work Phone: [facility] 11-04-2021 08:03-0500 Diastolic blood pressure 73 mm[Hg] Eladio Kingsley Jr., DPM Work Phone: [facility] 11-04-2021 08:03-0500 Heart rate 95 /min Eladio Kingsley Jr., DPM Work Phone: [facility] 11-04-2021 08:03-0500 Systolic blood pressure 124 mm[Hg] Eladio Kingsley Jr., DPM Work Phone: [facility] 10-26-2021 08:10-0500 Body height 165.1 cm Don Barrera Work Phone: [facility] Work Phone: 10-26-2021 08:10-0500 Body mass index (BMI) [Ratio] 26.86 kg/m2 Don Barrera Work Phone: [facility] Work Phone: 10-26-2021 08:10-0500 Body surface area Derived from formula 1.81 m2 Don Barrera Work Phone: [facility] Work Phone: 10-26-2021 08:10-0500 Body temperature 97.3 [degF] Don Barrera Work Phone: [facility] Work Phone: 10-26-2021 08:10-0500 Body weight 73.23 kg Don Barrera Work Phone: [facility] Work Phone: 10-26-2021 08:10-0500 Diastolic blood pressure 80 mm[Hg] Don Barrera Work Phone: [facility] Work Phone: 10-26-2021 08:10-0500 Heart rate 72 /min Don Barrera Work Phone: [facility] Work Phone: 10-26-2021 08:10-0500 SaO2% (BldA) [Mass fraction] 98 % Don Barrera Work Phone: [facility] Work Phone: 10-26-2021 08:10-0500 Systolic blood pressure 130 mm[Hg] Don Barrera Work Phone: [facility] Work Phone: 08-30-2021 12:06-0500 Body mass index (BMI) [Ratio] 27.29 kg/m2 Don Barrera Work Phone: [facility] Work Phone: 08-30-2021 12:06-0500 Body surface area Derived from formula 1.82 m2 Don Barrera Work Phone: [facility] Work Phone: 08-30-2021 12:06-0500 Body temperature 98 [degF] [place] Cande Barrera Work Phone: [facility] Work Phone: 08-30-2021 12:06-0500 Body weight 74.39 kg Eligiodequan Cande Barrera Work Phone: [facility] Work [...] 167.6 cm Vijay Viveros MD Work Phone: [facility] 05-20-2021 12:55-0400 Body mass index (BMI) [Ratio] 27.12 kg/m2 Vijay Viveros MD Work Phone: [facility] 05-20-2021 12:55-0400 Body weight 76.2 kg Vijay Viveros MD Work Phone: [facility] 05-18-2021 13:03-0400 Body height 165.1 cm Don Barrera Work Phone: CJ-Lbobqoh-Tzbgkbr Work Phone: 05-18-2021 13:03-0400 Body mass index (BMI) [Ratio] 28.12 kg/m2 Don Barrera Work Phone: XN-Smtzqtr-Znokzss Work Phone: 05-18-2021 13:03-0400 Body surface area Derived from formula 1.84 m2 Don Barrera Work Phone: VB-Dabpjcq-Xwvlpxy Work Phone: 05-18-2021 13:03-0400 Body weight 76.66 kg Don Barrera Work Phone: XZ-Eczsvmk-Bjnlrse Work Phone: 05-18-2021 13:03-0400 Diastolic blood pressure 62 mm[Hg] Don Barrera Work Phone: ZN-Vqvspjx-Khsksmh Work Phone: 05-18-2021 13:03-0400 Heart rate 64 /min Don Barrera Work Phone: ME-Picvyxx-Nvcqpky Work Phone: 05-18-2021 13:03-0400 Systolic blood pressure 120 mm[Hg] Don Barrera Work Phone: KP-Xngodzk-Nyltxjq Work Phone: 05-13-2021 08:03-0400 Body height 167.6 cm Eladio Kingsley Jr., DPM Work Phone: [facility] 05-13-2021 08:03-0400 Body mass index (BMI) [Ratio] 27.12 kg/m2 Eladio Kingsley Jr., DPM Work Phone: [facility] 05-13-2021 08:03-0400 Body temperature 97.7 [degF] Eladio Acevedolon Jr., DPM Work Phone: [facility] 05-13-2021 08:03-0400 Body weight 76.2 kg Eladio Halln Jr., DPM Work Phone: [facility] 05-13-2021 08:03-0400 Diastolic blood pressure 64 mm[Hg] Eladio Halln Jr., DPM Work Phone: [facility] 05-13-2021 08:03-0400 Heart rate 86 /min Eladio Acevedoboni Kim., DPM Work Phone: [facility] 05-13-2021 08:03-0400 Systolic blood pressure 121 mm[Hg] Eladio Acevedolon Jr., DPM Work Phone: [facility] 05-09-2021 10:04-0400 Body height 167.6 cm Heather Paredes MD Work Phone: [facility] 05-09-2021 10:04-0400 Body mass index (BMI) [Ratio] 27.12 kg/m2 Heather Paredes MD Work Phone: [facility] 05-09-2021 10:04-0400 Body weight 76.2 kg Heather Paredes MD Work Phone: [facility] 05-09-2021 10:04-0400 Diastolic blood pressure 83 mm[Hg] Heather Paredes MD Work Phone: [facility] 05-09-2021 10:04-0400 Heart rate 53 /min Heather Paredes MD Work Phone: [facility] 05-09-2021 10:04-0400 SaO2% (BldA) [Mass fraction] 94 % Heather Paredes MD Work Phone: [facility] 05-09-2021 10:04-0400 Systolic blood pressure 143 mm[Hg] Heather Paredes MD Work Phone: [phone] [place] [address] 04-20-2021 09:50-0400 Body height 165.1 cm Don Barrera Work Phone: [facility] Work Phone: 04-20-2021 09:50-0400 Body mass index (BMI) [Ratio] 28.04 kg/m2 Don Barrera Work Phone: [facility] Work Phone: 04-20-2021 09:50-0400 Body surface area Derived from formula 1.84 m2 Don Barrera Work Phone: [facility] Work Phone: 04-20-2021 09:50-0400 Body temperature 97.3 [degF] Don Barrera Work Phone: [facility] Work Phone: 04-20-2021 09:50-0400 Body weight 76.43 kg Don Barrera Work Phone: [facility] Work Phone: 04-20-2021 09:50-0400 Diastolic blood pressure 64 mm[Hg] Don Barrera Work Phone: [facility] Work Phone: 04-20-2021 09:50-0400 Heart rate 57 /min Don Barrera Work Phone: [facility] Work Phone: 04-20-2021 09:50-0400 SaO2% (BldA) [Mass fraction] 96 % Don Barrera Work Phone: [facility] Work Phone: 04-20-2021 09:50-0400 Systolic blood pressure 120 mm[Hg] Eligiodequan Sheltond Work Phone: [facility] Work Phone: 02-11-2021 21:23-0400 Body height 167.6 cm Eladio Halln Jr., DPM Work Phone: [facility] 02-11-2021 21:23-0400 Body mass index (BMI) [Ratio] 27.12 kg/m2 Eladio Halln Jr., DPM Work Phone: [facility] 02-11-2021 21:23-0400 Body weight 76.2 kg Eladio Halln Jr., DPM Work Phone: [facility] 11-12-2020 21:23-0500 Diastolic blood pressure 66 mm[Hg] Eladio Halln Jr., DPM Work Phone: [facility] 11-12-2020 21:23-0500 Systolic blood pressure 117 mm[Hg] Eladio Halln Jr., DPM Work Phone: [facility] 04-07-2020 10:11-0400 BMI (Body Mass Index) 24.3 kg/m2 Don Barrera [facility] Work Phone: 04-07-2020 10:11-0400 Body Temperature 97.8 [degF] Don Barrera [facility] Work Phone: 04-07-2020 10:11-0400 Body weight 66.23 kg Don Barrera [facility] Work Phone: 04-07-2020 10:11-0400 BP Diastolic 64 mm[Hg] Don Barrera [facility] Work Phone: 04-07-2020 10:11-0400 BP Systolic 108 mm[Hg] Don Barrera [facility] Work Phone: 04-07-2020 10:11-0400 BSA (Body Surface Area) 1.73 m2 Don Barrera [facility] Work Phone: 04-07-2020 10:11-0400 Height 165.1 cm Alokph[place] Yuri -[facility] Work Phone: 04-07-2020 10:11-0400 Pulse (Heart Rate) 72 /min Don Yuri [facility] Work Phone: 04-07-2020 10:05-0400 BMI (Body Mass Index) 27.62 kg/m2 Don Barrera [facility] Work Phone: 04-07-2020 10:05-0400 Body Temperature 97.3 [degF] Al[place] Yuri [facility] Work Phone: 04-07-2020 10:05-0400 Body weight 75.3 kg [place] Yuri [facility] Work Phone: 04-07-2020 10:05-0400 BP Diastolic 64 mm[Hg] Don Barrera [facility] Work Phone: Comment on above: Location: [facility]; 04-07-2020 10:05-0400 BP Systolic 108 mm[Hg] [place] Yuri [facility] Work Phone: Comment on above: Location: [facility]; 04-07-2020 10:05-0400 BSA (Body Surface Area) 1.83 m2 Don Barrera [facility] Work Phone: 04-07-2020 10:05-0400 Height 165.1 cm Don Barrera [facility] Work Phone: 04-07-2020 10:05-0400 Pulse (Heart Rate) 72 /min Don Barrera [facility] Work Phone: 03-08-2020 15:38-0400 Diastolic blood pressure 72 ml [facility] 03-08-2020 15:38-0400 Systolic blood pressure 23 ml Heather Paredes [facility] 03-08-2020 09:51-0400 BMI (Body Mass Index) 26.24 kg/m2 Heather Paredes [facility] 03-08-2020 09:51-0400 Body weight 76 kg Heather Paredes [facility] 03-08-2020 09:51-0400 BP Diastolic 73 mm[Hg] Heather Paredes [facility] 03-08-2020 09:51-0400 BP Systolic 138 mm[Hg] Heather Paredes [facility] 03-08-2020 09:51-0400 Height 170.2 cm Heather Paredes [facility] 03-08-2020 09:51-0400 Pulse (Heart Rate) 66 /min Heather Paredes [facility] 11-12-2019 16:51-0500 BMI (Body Mass Index) 26.19 kg/m2 Robb Colindres II QE-Zmokvdc-Fogxsbx Work Phone: 11-12-2019 16:51-0500 Body weight 73.03 kg Robb Colindres II JG-Hrgvwtb-Ialrt nd Work Phone: 11-12-2019 16:51-0500 BP Diastolic 68 mm[Hg] Robb Colindres II KP-Rakyqzl-Fkbjn nd Work Phone: 11-12-2019 16:51-0500 BP Systolic 122 mm[Hg] Robb Colindres II PI-Mlasuqx-Exwct nd Work Phone: 11-12-2019 16:51-0500 BSA (Body Surface Area) 1.82 m2 Robb Colindres II HY-Sghalzo-Yyubloh Work Phone: 11-12-2019 16:51-0500 Height 167 cm Robb Colindres II DT-Fzkciwg-Geucm nd Work Phone: 11-12-2019 16:51-0500 Pulse (Heart Rate) 64 /min Robb Colindres II OT-Prwuwum-Dg hland Work Phone: 10-08-2019 13:03-0500 BMI (Body Mass Index) 27.85 kg/m2 Robb Colindres II NX-Axnvaji-Ldxfxim Work Phone: 10-08-2019 13:03-0500 Body weight 75.92 kg Robb Colindres II WT-Evpsrnk-Rlvkj nd Work Phone: 10-08-2019 13:03-0500 BP Diastolic 81 mm[Hg] Robb Colindres II PV-Ilvrqyp-Jorhn nd Work Phone: 10-08-2019 13:03-0500 BP Systolic 146 mm[Hg] Robb Colindres II BL-Pcofwkd-Iasts nd Work Phone: 10-08-2019 13:03-0500 BSA (Body Surface Area) 1.83 m2 Robb Colindres II, MPWA-Jbxllnn-Xkkwcww Work Phone: 10-08-2019 13:03-0500 Height 165.1 cm Robb Colindres II MC-Vhghsqw-Bkhpa nd Work Phone: 10-08-2019 13:03-0500 Pulse (Heart Rate) 69 /min Robb Colindres II OM-Dvwslic-Lx hland Work Phone: 10-03-2019 10:09-0500 BMI (Body Mass Index) 27.33 kg/m2 Don Barrera [facility] Work Phone: 10-03-2019 10:09-0500 Body weight 74.5 kg Don Barrera [facility] Work Phone: 10-03-2019 10:09-0500 BP Diastolic 64 mm[Hg] Don Barrera [facility] Work Phone: Comment on above: Location: [facility]; 10-03-2019 10:09-0500 BP Systolic 122 mm[Hg] Don Barrera [facility] Work Phone: Comment on above: Location: [facility]; 10-03-2019 10:09-0500 BSA (Body Surface Area) 1.82 m2 Don Barrera [facility] Work Phone: 10-03-2019 10:09-0500 Height 165.1 cm Don Barrera [facility] Work Phone: 10-03-2019 10:09-0500 Pulse (Heart Rate) 64 /min Don Barrera [facility] Work Phone: 10-03-2019 10:09-0500 Pulse Oximetry 97 % Don Barrera [facility] Work Phone: 09-25-2019 13:50-0500 Body Temperature 98.6 [degF] Jenifer [facility] 09-25-2019 13:50-0500 BP Diastolic 60 mm[Hg] [facility] 09-25-2019 13:50-0500 BP Systolic 110 mm[Hg] [facility] 09-25-2019 13:50-0500 Pulse (Heart Rate) 64 /min Jenifer [facility] 09-25-2019 13:50-0500 Pulse Oximetry 97 % Jenifer [facility] 09-25-2019 11:52-0500 Body Temperature 98.8 [degF] [facility] 09-25-2019 11:52-0500 BP Diastolic 74 mm[Hg] [facility] 09-25-2019 11:52-0500 BP Systolic 128 mm[Hg] [facility] 09-25-2019 11:52-0500 Pulse (Heart Rate) 52 /min [facility] 09-25-2019 11:52-0500 Pulse Oximetry 99 % [facility] 09-23-2019 12:45-0500 BMI (Body Mass Index) 26.16 kg/m2 Vijay Viveros [facility] 09-23-2019 12:45-0500 Body weight 75.75 kg Vijay Viveros [facility] 09-23-2019 12:45-0500 Height 170.2 cm Vijay Viveros [facility] 09-22-2019 11:28-0500 Body Temperature 97.9 [degF] [facility] 09-22-2019 11:28-0500 BP Diastolic 74 mm[Hg] [facility] 09-22-2019 11:28-0500 BP Systolic 120 mm[Hg] [facility] 09-22-2019 11:28-0500 Pulse (Heart Rate) 77 /min [facility] 09-22-2019 11:28-0500 Pulse Oximetry 98 % [facility] 09-22-2019 10:34-0500 Body Temperature 98.2 [degF] [facility] 09-22-2019 10:34-0500 BP Diastolic 70 mm[Hg] [facility] 09-22-2019 10:34-0500 BP Systolic 120 mm[Hg] [facility] 09-22-2019 10:34-0500 Pulse (Heart Rate) 64 /min [facility] 09-22-2019 10:34-0500 Pulse Oximetry 97 % [facility] 09-22-2019 10:34-0500 Respiratory Rate 18 /min [facility] 09-19-2019 10:07-0500 Body Temperature 97.5 [degF] [facility] 09-19-2019 10:07-0500 BP Diastolic 58 mm[Hg] [facility] 09-19-2019 10:07-0500 BP Systolic 98 mm[Hg] [facility] 09-19-2019 10:07-0500 Pulse (Heart Rate) 68 /min [facility] 09-19-2019 10:07-0500 Pulse Oximetry 95 % [facility] 09-19-2019 10:07-0500 Respiratory Rate 16 /min [facility] 09-17-2019 11:35-0500 BMI (Body Mass Index) 27.72 kg/m2 [id number] [facility] UROLOGY NURSE LD-Qukzduv-Euuncve Work Phone: 09-17-2019 11:35-0500 Body weight 80.29 kg [id number] [facility] UROLOGY NURSE [facility] Work Phone: 09-17-2019 11:35-0500 BP Diastolic 78 mm[Hg] [id number] [facility] UROLOGY NURSE CE-Jefvoxk-Xqzdait Work Phone: 09-17-2019 11:35-0500 BP Systolic 124 mm[Hg] [id number] [place] [address] UROLOGY NURSE OH-Gcjlgah-Adpvswo Work Phone: 09-17-2019 11:35-0500 BSA (Body Surface Area) 1.92 m2 [id number] [facility] UROLOGY NURSE TF-Ijszdcn-Efejugy Work Phone: 09-17-2019 11:35-0500 Height 170.18 cm [id number] [facility] UROLOGY NURSE YJ-Hvzfcgv-Vgqpcqr Work Phone: 09-17-2019 11:25-0500 Body Temperature 97.9 [degF] [facility] 09-17-2019 11:25-0500 BP Diastolic 65 mm[Hg] [facility] 09-17-2019 11:25-0500 BP Systolic 110 mm[Hg] [facility] 09-17-2019 11:25-0500 Pulse (Heart Rate) 65 /min [facility] 09-17-2019 11:25-0500 Pulse Oximetry 98 % [facility] 09-15-2019 10:53-0500 Body Temperature 98.01 [degF] [facility] 09-15-2019 10:53-0500 BP Diastolic 72 mm[Hg] [facility] 09-15-2019 10:53-0500 BP Systolic 124 mm[Hg] [facility] 09-15-2019 10:53-0500 Pulse (Heart Rate) 72 /min [facility] 09-15-2019 10:53-0500 Pulse Oximetry 72 % [facility] 09-15-2019 10:53-0500 Respiratory Rate 16 /min [facility] 09-15-2019 10:28-0500 Body Temperature 98.01 [degF] [facility] 09-15-2019 10:28-0500 BP Diastolic 72 mm[Hg] [facility] 09-15-2019 10:28-0500 BP Systolic 124 mm[Hg] [facility] 09-15-2019 10:28-0500 Pulse (Heart Rate) 68 /min [facility] 09-15-2019 10:28-0500 Pulse Oximetry 97 % [facility] 09-12-2019 12:27-0500 Body Temperature 97.9 [degF] [facility] 09-12-2019 12:27-0500 BP Diastolic 70 mm[Hg] [facility] 09-12-2019 12:27-0500 BP Systolic 110 mm[Hg] [facility] 09-12-2019 12:27-0500 Pulse (Heart Rate) 77 /min [facility] 09-12-2019 12:27-0500 Pulse Oximetry 95 % Chary Mayorga [facility] 09-12-2019 10:17-0500 Body Temperature 97.3 [degF] Milagro Leal [facility] 09-12-2019 10:17-0500 BP Diastolic 60 mm[Hg] Milagro Leal [facility] 09-12-2019 10:17-0500 BP Systolic 112 mm[Hg] Milagro Leal [facility] 09-12-2019 10:17-0500 Pulse (Heart Rate) 68 /min Milagro Leal [facility] 09-12-2019 10:17-0500 Pulse Oximetry 93 % Milagro Leal [facility] 09-12-2019 10:17-0500 Respiratory Rate 18 /min Milagro Leal [facility] 09-11-2019 14:58-0500 Respiratory Rate 16 /min Vijay Viveros [facility] 09-11-2019 13:24-0500 Body Temperature 99.1 [degF] Vijay Viveros [facility] 09-11-2019 13:24-0500 BP Diastolic 78 mm[Hg] Vijay Viveros [facility] 09-11-2019 13:24-0500 BP Systolic 135 mm[Hg] Vijay Viveros [facility] 09-11-2019 13:24-0500 Pulse (Heart Rate) 71 /min Vijay Viveros [facility] 09-11-2019 13:24-0500 Pulse Oximetry 97 % Vijay Viveros [facility] 09-10-2019 08:38-0500 BMI (Body Mass Index) 26.24 kg/m2 Vijay Viveros [facility] 09-10-2019 08:38-0500 Body weight 76 kg Vijay Viveros [facility] 09-10-2019 08:38-0500 Height 170.2 cm Vijay Viveros [facility] 05-19-2019 10:18-0400 BMI (Body Mass Index) 26.24 kg/m2 Heather Paredes [facility] 05-19-2019 10:18-0400 Body weight 78.29 kg Heather Paredes [facility] 05-19-2019 10:18-0400 BP Diastolic 73 mm[Hg] Heather Paredes [facility] 05-19-2019 10:18-0400 BP Systolic 139 mm[Hg] Heather Paredes [facility] 05-19-2019 10:18-0400 Height 172.7 cm Heather [facility] 05-19-2019 10:18-0400 Pulse (Heart Rate) 60 /min [facility] 05-19-2019 10:18-0400 Pulse Oximetry 96 % Heather Paredes [facility] 04-28-2019 09:29-0400 BMI (Body Mass Index) 26.15 kg/m2 Vijay Viveros [facility] 04-28-2019 09:29-0400 Body weight 78.02 kg Vijay Viveros [facility] 04-28-2019 09:290400 Height 172.7 cm Vijay Viveros [facility] 04-22-2018 12:03-0400 BMI (Body Mass Index) 26.23 kg/m2 Heather Paredes [facility] 04-22-2018 12:03-0400 BP Diastolic 82 mm[Hg] Heather [facility] 04-22-2018 12:03-0400 BP Systolic 136 mm[Hg] Heather [facility] 04-22-2018 12:03-0400 Height 172.7 cm Heather [facility] 04-22-2018 12:03-0400 Pulse (Heart Rate) 61 /min [facility] 04-22-2018 12:03-0400 Pulse Oximetry 93 % Heather [facility] 04-22-2018 12:03-0400 Weight 78.25 kg [facility] Encounters Encounter Date Encounter Type Care Provider Facility Start: 08-04-2025 End: 08-09-2025 Evaluation and management of inpatient DON BARRERA [facility] Comment on above: Head injury, initial encounter (Primary Dx); Subdural hemorrhage (Multi) Start: 08-04-2025 End: 08-04-2025 Emergency department patient visit Santiago Menendez DO Work Phone: [facility] Start: 07-31-2025 End: 07-31-2025 Assay of hemosiderin, quant Don Barrera MD Work Phone: [facility] Work Phone: Start: 07-31-2025 End: 07-31-2025 Patient encounter procedure Don Barrera MD Work Phone: [facility] Comment on above: Routine general medi randy examination at health care facility (Primary Dx); Primary hypertension; 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; Migraine with visual aura; Hypertension, unspecified type; Fall, initial encounter; Open fracture of roof of right orbit, initial encounter (Multi); MARIANGEL (generalized anxiety disorder); Vertigo; Hyperlipidemia, unspecified hyperlipidemia type; Benign prostatic 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 lower urinary tract symptoms; Nocturia; Dysphagia, unspecified type Start: 07-31-2025 End: 07-31-[address] [facility] Start: 07-31-2025 End: 07-31-2025 Encounter for general adult medical examination without abnormal findings [facility] Start: 07-17-2025 End: 07-17-2025 Office outpatient visit 25 minutes Don Barrera MD Work Phone: [facility] Comment on above: Primary hypertension (Primary Dx); 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; Closed fracture of roof of orbit, unspecified laterality, sequela; Closed fracture of sacrum, unspecified portion of sacrum, sequela; Subdural hematoma (Multi); Fall, sequela; Benign prostatic hyperplasia with lower urinary tract symptoms, symptom details unspecified Start: 07-17-2025 End: 07-17-[address] [facility] Start: 07-14-2025 End: 07-14-[address] Devan Barrera MD Work Phone: -Cat Scan [facility] Start: 07-14-2025 End: 07-14-[address] Jesus Alberto Wiggins MD -Cat Scan [facility] Work Phone: Start: 07-14-2025 End: 07-14-2025 ambulatory Jesus Alberto Wiggins Facility:[facility] Start: 06-17-2025 ambulatory Stan Ferrara Facility :[facility] Start: 06-17-2025 End: 06-17-2025 Admission to same day surgery center Stan Ferrara DO -Endoscopy Work Phone: Start: 06-17-2025 End: 06-17-[address] Devan Barrera MD Work Phone: -Endoscopy Start: 06-17-2025 Non-patient / Non-visit Stan Frie nd DO -[facility] Start: 06-15-2025 Non-patient / Non-visit Stan Marcelinae nd DO -[facility] Start: 05-26-2025 End: 05-26-[address] Devan Barrera MD Work Phone: -Cat Scan [facility] Start: 05-26-2025 End: 05-26-[address] Jesu sAlberto Wiggins MD -Cat Scan [facility] Work Phone: Start: 05-26-2025 Non-patient / Non-visit Stan Frie nd DO -[facility] Start: 05-26-2025 End: 05-26-2025 Admission to same day surgery center Stan [place] DO -Endoscopy Work Phone: Start: 05-26-2025 End: 05-26-[address] Devan Barrera MD Work Phone: -Endoscopy Start: 05-26-2025 End: 05-26-2025 ambulatory Devan Barrera Facility:[facility] Start: 05-21-2025 End: 05-21-[address] Devan Barrera MD Work Phone: -Cat Scan [facility] Start: 05-21-2025 End: 05-21-[address] Jesus Alberto Wiggins MD -Cat Scan [facility] Work Phone: Start: 05-20-2025 End: 05-21-2025 ambulatory Jesus Alberto Wiggins Facility:[facility] Start: 05-20-2025 End: 07-16-2025 Evaluation and management of inpatient Dr. Jesus Alberto Wiggins MD -Transitional Care Unit Start: 05-18-2025 Evaluation and manag ement of inpatient LINCOLN GRADY [facility] Start: 05-11-2025 End: 05-11-2025 Emergency department patient visit LEONARDO BERGER [facility] Start: 05-10-2025 End: 05-11-2025 Evaluation and management of inpatient SANTIAGO MENENDEZ [facility] Start: 05-10-2025 End: 05-20-2025 Evaluation and management of inpatient Carri Greer MD Work Phone: [facility] Chalino Meyers 6 Comment on above: Fall, initial encoun ter (Primary Dx); Open fracture of roof of right orbit, initial encounter (Multi); Closed bilateral fracture of pubic rami, initial encounter (Multi); SAH (subarachnoid hemorrhage) (Multi); Syncope, unspecified syncope type; Urinary retention; Pseudophakia of both eyes Start: 05-10-2025 End: 05-10-2025 Emergency department patient visit Santiago G Shon DO Work Phone: [facility] Comment on above: Closed fracture of r ight orbit, initial encounter (Multi) (Primary Dx); Intracranial hemorrhage (Multi); Multiple closed fractures of pelvis with disruption of pelvic ring, initial encounter (Multi) Start: 05-08-2025 End: 05-08-2025 Subsequent hospital visit by physician Doug X-Ray 1 [facility] Comment on above: Neck pain Start: 05-08-2025 End: 05-08-2025 ambulatory [facility] Start: 05-07-2025 End: 05-07-2025 Office outpatient visit 15 minutes Don Barrera MD Work Phone: [facility] Comment on above: Neck pain (Primary D x) Start: 05-07-2025 End: 05-07-[address] [facility] Start: 04-10-2025 End: 04-10-2025 Subsequent hospital visit by physician Doug X-Ray 1 [facility] Comment on above: Rib pain on left chelo e Start: 04-10-2025 End: 04-10-2025 ambulatory LINCOLN E [facility] Start: 04-10-2025 End: 04-10-2025 ambulatory [facility] Start: 04-10-2025 End: 04-10-2025 Patient encounter procedure Eladio Kingsley DPM Work Phone: [facility] Comment on above: Onychomycosis (Prima ry Dx); Peripheral vascular disease, unspecified Rib pain on left chelo e (Primary Dx) Start: 04-10-2025 End: 04-10-2025 [facility] Start: 03-10-2025 End: 03-10-2025 ambulatory DELTA BANGURA Facility:[facility] Start: 01-09-2025 End: 01-09-2025 Patient encounter procedure Eladio Kingsley DPM Work Phone: [facility] Comment on above: Onychomycosis (Prima ry Dx); Peripheral vascular disease, unspecified Start: 01-09-2025 End: 01-09-2025 [facility] Start: 11-20-2024 End: 11-20-2024 Office outpatient visit 25 minutes Don Barrera MD Work Phone: [facility] Comment on above: Primary hypertension (Primary Dx); Mixed hyperlipidemia; 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; Benign prostatic 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 lower urinary tract symptoms; Osteoarthritis of spine with radiculopathy, lumbosacral region; MARIANGEL (generalized anxiety disorder); Anemia, unspecified type; Abdominal aneurysm (CMS-HCC); Peripheral arterial occlusive disease (CMS-HCC); Inflammatory polyarthropathy (Multi); Screening for prostate cancer Start: 11-20-2024 End: 11-20-[address] [facility] Ambulatory Start: 11-10-2024 End: 11-10-2024 ambulatory [facility] Start: 10-01-2024 End: 10-01-2024 Patient encounter procedure Eladio Kingsley DPM Work Phone: [facility] Comment on above: Onychomycosis (Prima ry Dx); Peripheral vascular disease, unspecified (HCC) Start: 10-01-2024 End: 10-01-2024 ambulatory [facility] Ambulatory Start: 09-02-2024 End: 09-02-2024 Subsequent hospital visit by physician [facility] Comment on above: Vertigo; Palpitations Start: 09-02-2024 End: 09-02-2024 ambulatory [facility] Start: 09-01-2024 End: 09-01-2024 Office outpatient visit 25 minutes Don Barrera MD Work Phone: [facility] Comment on above: Vertigo (Primary Dx) ; Hypertension, unspecified type; MARIANGEL (generalized anxiety disorder); 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; Hyperlipidemia, unspecified hyperlipidemia type; Migraine with visual aura; Palpitations Start: 09-01-2024 End: 09-01-[address] [facility] Ambulatory Start: 08-14-2024 End: 08-14-2024 ambulatory [facility] Start: 07-31-2024 End: 07-31-2024 Subsequent hospital visit by physician Doug Landry 1 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 Comment on above: Left hip pain Start: 06-06-2024 End: 06-06-2024 Patient encounter procedure Eladio Kingsley DPM Work Phone: [facility] Comment on above: Onychomycosis (Prima ry Dx); PAD (peripheral artery disease) ([facility]) Start: 06-06-2024 End: 06-06-2024 ambulatory ELADIO KINGSLEY JR. [facility] Start: 03-27-2024 End: 03-27-2024 Subsequent hospital visit by physician Doug EscalanteRay Fluoro 1 [facility] Comment on above: Pain in right should [...] encounter procedure Eladio Kingsley DPM Work Phone: [facility] Comment on above: Onychomycosis (Prima ry Dx); PAD (peripheral artery disease) ([facility]) Start: 02-12-2024 End: 02-12-2024 Office outpatient new 60 minutes Don Barrera MD Work Phone: [facility] Comment on above: Vestibular migraine (Primary Dx) Start: 12-07-2023 End: 12-07-2023 Emergency department patient visit Celso Cabezas DO Work Phone: [facility] Comment on above: Dizziness (Primary D x) Start: 11-30-2023 End: 11-30-2023 Patient encounter procedure Eladio Kingsley DPM Work Phone: [facility] Comment on above: Onychomycosis (Prima ry Dx); PAD (peripheral artery disease) ([facility]) Start: 11-16-2023 End: 11-16-2023 Subsequent hospital visit by physician Doug 2e Long Nonv1 [facility] [address] [facility] Comment on above: Arrived Start: 11-15-2023 End: 11-15-2023 Emergency department patient visit Celso Cabezas DO Work Phone: [facility] Comment on above: Dizziness (Primary D x); Generalized weakness Start: 11-15-2023 End: 11-15-2023 Office outpatient visit 15 minutes Daysi Nabil Castorenaae DO Work Phone: [facility] Comment on above: 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 esophag itis (Primary Dx); Hiatal hernia Start: 11-12-2023 End: 11-12-2023 Subsequent hospital visit by physician Doug Alves Nonv[facility] Comment on above: Arrived Start: 11-11-2023 End: 11-11-2023 Emergency department patient visit Sai Myers MD Work Phone: [facility] Start: 11-06-2023 End: 11-06-2023 Subsequent hospital visit by physician Doug X-Ray Fluoro 1 [facility] Comment on above: 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 esophag itis; Hiatal hernia Start: 11-05-2023 End: 11-05-2023 Office outpatient visit 25 minutes Don Barrera MD Work Phone: [facility] Comment on above: Primary hypertension (Primary Dx); Screening for prostate cancer; Mixed hyperlipidemia; 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; Benign prostatic 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 lower urinary tract symptoms; Osteoarthritis of spine with radiculopathy, lumbosacral region; MARIANGEL (generalized anxiety disorder); Vertigo; Inflammatory polyarthropathy (CMS/HCC); Peripheral arterial occlusive disease (CMS/HCC); Abdominal aneurysm (CMS/HCC) Start: 11-01-2023 End: 11-01-2023 Office outpatient new 45 minutes Daysi R Raffaeleae DO Work Phone: [facility] Comment on above: Hiatal hernia (Prima ry Dx); 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 Start: 10-31-2023 End: 10-31-2023 Office outpatient visit 15 minutes Eladio Kingsley DPM Work Phone: [facility] Comment on above: Ingrown nail (Primar y Dx); Peripheral vascular disease, unspecified (HCC) Start: 10-24-2023 End: 10-24-2023 Office outpatient visit 15 minutes Eladiomiguel Kingsley DPM Work Phone: [facility] Comment on above: Ingrown nail (Primar y Dx) Start: 10-12-2023 End: 10-12-2023 Patient encounter procedure Eladio Dillon DPMonty Work Phone: [facility] Comment on above: Ingrown nail (Primar y Dx) Start: 10-06-2023 End: 10-06-2023 Patient encounter procedure Clark Lees PA-C Work Phone: [facility] Comment on above: Urinary frequency (P rimary Dx); Dysuria Start: 09-28-2023 End: 09-28-2023 Office outpatient visit 15 minutes Don Barrera MD Work Phone: [facility] Comment on above: 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 esophag itis (Primary Dx) Start: 09-17-2023 End: 09-17-2023 Office outpatient visit 25 minutes Robb Colindres MD Work Phone: [facility] Comment on above: Benign prostatic hyp erplasia [...] patient visit Sai Myers MD Work Phone: [facility] Comment on above: Dizziness (Primary D x); Vertigo Start: 06-21-2023 Office outpatient vi sit 25 minutes Don Barrera Work Phone: [facility] [address] Work Phone: Start: 05-31-2023 End: 05-31-2023 Office outpatient visit 15 minutes Don Barrera MD Work Phone: [facility] Comment on above: Chronic right should er pain (Primary Dx) Start: 05-10-[address] Devan Barrera Facility:[id number] Start: 05-04-2023 End: 05-04-2023 Assay of hemosiderin, quant Don Barrera MD Work Phone: [facility] Work Phone: Start: 05-04-2023 End: 05-04-2023 Patient encounter procedure Don Barrera MD Work Phone: [facility] Comment on above: Routine general medi [...] encounter procedure Eladio Kingsley DPM Work Phone: [facility] Comment on above: Onychomycosis (Prima ry Dx); Peripheral vascular disease, unspecified (HCC) Start: 11-17-2022 End: 11-17-2022 Patient encounter procedure Eladio Kingsley DPM Work Phone: [facility] Comment on above: Onychomycosis (Prima ry Dx); Peripheral vascular disease, unspecified (HCC) Start: 10-27-2022 Office outpatient vi sit 25 minutes Don Barrera Work Phone: [facility] Work Phone: Start: 10-24-2022 Chart Update Don Barrera Work Phone: [facility] Work Phone: Start: 09-23-2022 ambulatory Ms. Heike [facility] Facility:[id number] Start: 09-23-2022 End: 09-23-2022 Emergency department patient visit Heike Angie [facility] Start: 09-18-2022 AUDIT Don Barrera Work Phone: [facility] Work Phone: Start: 09-04-2022 AUDIT Don Barrera Work Phone: [facility] Work Phone: Start: 08-18-2022 End: 08-18-2022 Patient encounter procedure Eladio Kingsley DPM Work Phone: [facility] Comment on above: Onychomycosis (Prima ry Dx); Peripheral vascular disease, unspecified (HCC) Start: 06-15-2022 Office outpatient ne w 45 minutes Don Barrera Work Phone: [facility] Work Phone: Start: 05-19-2022 End: 05-19-2022 Patient encounter procedure Eladio Dillon DPM Work Phone: [facility] Comment on above: OM (onychomycosis) ( Primary Dx); Peripheral vascular disease, unspecified (HCC) Start: 04-26-2022 Patient encounter procedure Don Barrera Work Phone: [facility] Work Phone: Start: 04-21-2022 Chart Update Don Barrera Work Phone: [facility] Work Phone: Start: 02-27-2022 Office outpatient vi sit 15 minutes Alokphilly Sheltond Work Phone: [facility] Work Phone: Start: 02-16-2022 Refill Heather arredondo MD Work Phone: [facility] Comment on above: Medication Refill Start: 02-15-2022 End: 02-15-2022 Patient encounter procedure Eladio Dillon DPM Work Phone: [facility] Comment on above: OM (onychomycosis) ( Primary Dx); PAD (peripheral artery disease) (HCC) Start: 12-12-2021 AUDIT Don Barrera Work Phone: [facility] Work Phone: Start: 11-22-2021 Chart Update Don Barrera Work Phone: [facility] Work Phone: Start: 11-15-2021 Patient encounter procedure Don Barrera Work Phone: [facility] Work Phone: Start: 11-04-2021 AUDIT Alokphilly Cande Barrera Work Phone: [facility] Work Phone: Start: 11-04-2021 End: 11-04-2021 Patient encounter procedure Eladio Dillon DPM Work Phone: [facility] Comment on above: Onychomycosis (Prima ry Dx); Peripheral vascular disease, unspecified (HCC) Start: 10-26-2021 Office outpatient vi sit 25 minutes Don Barrera Work Phone: [facility] Work Phone: Start: 09-20-2021 AUDIT Don Barrera Work Phone: [facility] Work Phone: Start: 08-30-2021 Patient encounter procedure Don Barrera Work Phone: [facility] Work Phone: Start: 07-01-2021 End: 07-01-2021 Office outpatient visit 10 minutes Vijay Viveros MD Work Phone: [facility] Comment on above: Status post left hip replacement (Primary Dx) Start: 06-23-2021 PTRECHHILARY, Provider : Dioni Elmore, Status: Pen, Time: 1:15 PM Don Barrera Work Phone: [facility] [place] Work Phone: Start: 06-21-2021 Patient encounter procedure Don Barrera Work Phone: [facility] [place] Work Phone: Start: 06-16-2021 Patient encounter procedure Don Barrera Work Phone: [facility] [place] Work Phone: Start: 06-10-2021 Patient encounter procedure Don Barrera Work Phone: [facility] [place] Work Phone: Start: 06-07-2021 Patient encounter procedure Don Barrera Work Phone: [facility] [place] Work Phone: Start: 05-25-2021 Patient encounter procedure Don Barrera Work Phone: [facility] Work Phone: Start: 05-20-2021 End: 05-20-2021 Office outpatient visit 10 minutes Vijay Viveros MD Work Phone: [facility] Comment on above: Status post left hip replacement (Primary Dx) Start: 05-18-2021 Office outpatient vi sit 25 minutes Don Barrera Work Phone: [facility] Work Phone: Start: 05-13-2021 End: 05-13-2021 Patient encounter procedure Eladio Kingsley DPM Work Phone: [facility] Comment on above: Onychomycosis (Prima ry Dx); Peripheral vascular disease, unspecified (HCC) Start: 05-12-2021 Chart Update Don Barrera Work Phone: [facility] Work Phone: Start: 05-11-2021 AUDIT Don Barrera Work Phone: [facility] Work Phone: Start: 05-09-2021 End: 05-09-2021 Orders Only Deb Menendez RN [facility] Office Comment on above: 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 (Primary Dx) Start: 05-09-2021 End: 05-09-2021 Office outpatient visit 25 minutes Heather Paredes MD Work Phone: [facility] Office Comment on above: 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; Mixed hyperlipidemia; Bradycardia Start: 05-03-2021 End: 05-03-2021 Chart abstracting Eladio Kingsley DPM Work Phone: [facility] Comment on above: Callus of foot; OM (onychomycosis); PAD (peripheral artery disease) (HCC) Start: 04-20-2021 Patient encounter procedure Don Barrera Work Phone: [facility] Work Phone: Start: 01-11-2021 Patient encounter procedure Don Barrera MD OM-Ynmczkd-Rahzbsf Work Phone: Start: 01-10-2021 Patient encounter procedure Don Barrera MD WQ-Cmtwteq-Wsioulf Work Phone: Start: 11-24-2020 Patient encounter procedure Don Barrera MD ZQ-Ttvmdlz-Wwwuwts Work Phone: Start: 11-05-2020 End: 11-05-2020 Orders Only Desire Chandra Michael Work Phone: [facility] Start: 10-12-2020 End: 10-12-2020 Office outpatient visit 10 minutes Santiago Bates Work Phone: [facility] Comment on above: Status post reverse arthroplasty of left shoulder (Primary Dx) Start: 10-11-2020 Patient encounter procedure Don Barrera MD [id number]-Oimxppi-Tnnulbm Work Phone: Start: 08-20-2020 End: 08-20-2020 Office outpatient visit 10 minutes Vijay Viveros Work Phone: [facility] Comment on above: Status post left hip replacement (Primary Dx); Lumbar and sacral arthritis Start: 07-13-2020 End: 07-13-2020 Office outpatient visit 10 minutes Santiago Bates Work Phone: [facility] Comment on above: Status post reverse arthroplasty of left shoulder (Primary Dx) Start: 07-08-2020 Patient encounter procedure Don Barrera MD GP-Esfwrkb-Hvjxqhy Work Phone: Start: 06-15-2020 End: 06-15-2020 Postop follow up visit related to original px Santiago Bates Work Phone: [facility] Comment on above: Status post reverse arthroplasty of left shoulder (Primary Dx) Start: 05-18-2020 End: 05-18-2020 Postop follow up visit related to original px Santiago Bates Work Phone: [facility] Comment on above: Status post reverse arthroplasty of left shoulder (Primary Dx) Start: 05-12-2020 Patient encounter procedure Don Barrera MD QT-Pofsnxs-Nnwuhia Work Phone: Start: 04-27-2020 End: 04-27-2020 Postop follow up visit related to original px Santiago Bates Work Phone: [facility] Comment on above: Status post reverse arthroplasty of left shoulder (Primary Dx); Rotator cuff arthropathy, left Start: 04-07-2020 Patient encounter procedure Don Barrera [facility] Work Phone: Start: 03-08-2020 End: 03-08-2020 Subsequent hospital visit by physician Heather Paredes Work Phone: [facility] Comment on above: 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 Arrived Start: 03-06-2020 End: 03-06-2020 Patient encounter procedure HEATHER PAREDES [facility] Start: 02-24-2020 End: 02-24-2020 Office outpatient visit 15 minutes Santiago Ratliffder Work Phone: [facility] Comment on above: Rotator cuff arthrop athy, left (Primary Dx) Start: 12-15-2019 End: 12-15-2019 Office outpatient visit 10 minutes Vijay Viveros Work Phone: [facility] Comment on above: Nontraumatic complet e tear of left rotator cuff (Primary Dx); Rotator cuff arthropathy, left Start: 12-10-2019 End: 12-10-2019 Subsequent hospital visit by physician Vijay Viveros Work Phone: [facility] Comment on above: Nontraumatic complet e tear of left rotator cuff Start: 12-01-2019 End: 12-01-2019 Documentation procedure Gema Phillips [facility] Start: 11-26-2019 Patient encounter procedure Don Barrera [facility] Work Phone: Start: 11-14-2019 Patient encounter procedure Dioni Elmore [facility] Work Phone: Start: 11-12-2019 Patient encounter procedure Robb Colindres SARAH BT-Rhgyxqd-Utytsxk Work Phone: Start: 11-12-2019 Patient encounter procedure Gracie Al [facility] Work Phone: Start: 11-07-2019 Patient encounter procedure Santy Moore [facility] Work Phone: Start: 11-05-2019 Patient encounter procedure Gracie Al [facility] Work Phone: Start: 11-03-2019 Patient encounter procedure Gracie Al [facility] Work Phone: Start: 10-31-2019 Patient encounter procedure Santy Moore [facility] Work Phone: Start: 10-29-2019 Patient encounter procedure Martine Villafuerte [facility] Work Phone: Start: 10-27-2019 End: 10-27-2019 Office outpatient visit 10 minutes Vijay De La Paz Felice Work Phone: [facility] Comment on above: Status post left hip replacement (Primary Dx); Nontraumatic complete tear of left rotator cuff Start: 10-27-2019 Patient encounter procedure Martine Villafuerte [facility] Work Phone: Start: 10-24-2019 Patient encounter procedure Santy Moore [facility] Work Phone: Start: 10-21-2019 Patient encounter procedure Dina Callaway [facility] Work Phone: Start: 10-14-2019 Patient encounter procedure Melody Joseph [facility] Work Phone: Start: 10-10-2019 Patient encounter procedure Dioni Elmore [facility] Work Phone: Start: 10-08-2019 Patient encounter procedure Robb Colindres II MZ-Cvqfmpw-Nlkbauo Work Phone: Start: 10-03-2019 Patient encounter procedure Alokailyndequan Barrera [facility] Work Phone: Start: 09-25-2019 End: 09-25-2019 Home visit Jenifer Greene [facility] Comment on above: SN HH OASIS DISCHARG E PT NON-OASIS/DISCIPL INE DISCHARGE Start: 09-23-2019 End: 09-23-2019 Postop follow up visit related to original px Vijay Viveros Work Phone: [facility] Comment on above: Status post left hip replacement (Primary Dx) Start: 09-22-2019 End: 09-23-2019 Home visit Clemente Dix [facility] Comment on above: 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 Start: 09-22-2019 End: 09-22-2019 Home visit Jenifer Greene [facility] Comment on above: SN HH ROUTINE VISIT Start: 09-19-2019 End: 09-19-2019 Home visit Jenifer Greene [facility] Comment on above: SN HH ROUTINE VISIT Start: 09-17-2019 End: 09-17-2019 Home visit Clemente Rethink Autism [facility] Comment on above: 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 Start: 09-17-2019 Patient encounter procedure [id number] [facility] N[facility] HC-Uwneiwn-Ubgdrlq Work Phone: Start: 09-15-2019 End: 09-15-2019 Documentation procedure Gema Phillips [facility] Start: 09-15-2019 End: 09-15-2019 Home visit Clemente Tanya [facility] Comment on above: 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 SN HH ROUTINE VISIT Start: 09-12-2019 End: 09-12-2019 Home visit Milagro Leal [facility] Comment on above: SN HH OASIS START OF CARE PT INITIAL EVALUATIO N Start: 09-11-2019 Patient encounter procedure GLORIA FONG [facility] Start: 09-10-2019 End: 09-10-2019 [facility]mission [facility] Don Barrera [facility] Start: 09-10-2019 End: 09-25-2019 Patient encounter procedure VIJAY ATKINSHARD [facility] Start: 09-10-2019 End: 09-11-2019 Evaluation and management of inpatient Vijay De La Paz Felice Work Phone: [facility] Comment on above: Status post total re placement of left hip (Primary Dx); Arthritis of left hip; Arthritis of left hip Start: 08-19-2019 End: 08-19-2019 Subsequent hospital visit by physician Vijay Viveros Work Phone: [facility] Comment on above: Arthritis of left hi p Start: 08-18-2019 Patient encounter procedure Gracie Quezada [facility] Work Phone: Start: 08-13-2019 Patient encounter procedure Cecy Linn [facility] Work Phone: Start: 08-11-2019 Patient encounter procedure Kelli Arteaga [facility] Work Phone: Start: 08-08-2019 Patient encounter procedure Dina Callaway [facility] Work Phone: Start: 08-06-2019 Patient encounter procedure Kelli Arteaga [facility] Work Phone: Start: 08-01-2019 Patient encounter procedure Kelli Arteaga [facility] Work Phone: Start: 07-30-2019 Patient encounter procedure Kelli Arteaga [facility] Work Phone: Start: 07-25-2019 Patient encounter procedure Kelli Arteaga [facility] Work Phone: Start: 07-14-2019 End: 07-14-2019 Postop follow up visit related to original px Vijay Viveros Work Phone: [facility] Comment on above: Arthritis of left hi p (Primary Dx) Start: 05-19-2019 End: 05-19-2019 Office outpatient visit 15 minutes Heather Paredes Work Phone: [facility] Office Comment on above: 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; Mixed hyperlipidemia Start: 04-28-2019 End: 04-28-2019 Office outpatient new 20 minutes Vijay De La Paz Felice Work Phone: [facility] Comment on above: Arthritis of right h ip (Primary Dx); Arthritis of left hip; Lumbar and sacral arthritis Start: 04-22-2018 End: 04-22-2018 Office outpatient visit 15 minutes Heather Paredes Work Phone: [facility] Office Patient encounter procedure Don Barrera MD EG-[id number] Work Phone: Procedures Date Procedure Procedure Detail Performing Clinician Start: 08-06-2025 Renal function panel Elaine Madrigal [employer] Work Phone: Start: 08-06-2025 WARD SERVICE SUPERVISOR MODIFIED BARIUM SWALLOW EVALUATION Elaine Madrigal [employer] Work Phone: Start: 08-06-2025 Radiologic exam swallow function contrast [facility] Work Phone: Start: 08-04-2025 Ct head/brain w/o contrast material Katherine Potts DO Work Phone: Start: 08-04-2025 Ct lumbar spine w/o contrast material Kelsey Patel MD Work Phone: Start: 08-04-2025 Ct thorax w/contrast material Katherine jose DO Work Phone: Start: 08-04-2025 Radex hip unilateral with pelvis 2-3 views Katherine Potts DO Work Phone: Start: 08-04-2025 EXTRA TUBES Kelsey Patel MD Work Phone: Start: 08-04-2025 STERILE CUP Chico Navarro MD Work Phone: Start: 08-04-2025 URINE CALLAWAY TUBE Kelsey Patel MD Work Phone: Start: 08-04-2025 URINE TUBE Chico Navarro MD Work Phone: Start: 08-04-2025 Basic metabolic panel calcium total Katherine Potts DO Work Phone: Start: 08-04-2025 Blood typing serologic rh (d) Katherine jose DO Work Phone: Start: 08-04-2025 Basic metabolic panel calcium total Santiago Menendez DO Work Phone: Start: 08-04-2025 Ct cervical spine w/o contrast material Santiago Menendez DO Work Phone: Start: 08-04-2025 Ct head/brain w/o contrast material Santiago Menendez DO Work Phone: Start: 08-04-2025 Radiologic exam chest single view Damian Menendez DO Work Phone: Start: 08-04-2025 Urnls dip stick/tablet rgnt auto w/o microscopy Santiago Menendez DO Work Phone: Start: 07-15-[address] Garrett Barrera MD Work Phone: Start: 07-14-2025 CT of head without contrast Dr. Genaro Barrera MD Work Phone: Start: 07-07-[address] Devan Barrera MD Work Phone: Start: 06-28-2025 Plain X-ray abdomen Dr. Devan Barrera MD Work Phone: Start: 06-23-[address] Devan Barrera MD Work Phone: Start: 06-18-[address] Devan Barrera MD Work Phone: Start: 06-18-2025 Urnls dip stick/tablet reagent auto microscopy Dr. Devan Barrera MD Work Phone: Start: 06-17-[address] Eligio Barrera MD Work Phone: Start: 06-17-[address] Garrett Barrera MD Work Phone: Start: 06-15-[address] Devan Barrera MD Work Phone: Start: 06-15-[address] Devan Barrera MD Work Phone: Start: 06-13-[address] Devan Barrera MD Work Phone: Start: 06-11-[address] Devan Barrera MD Work Phone: Start: 06-08-2025 Plain X-ray abdomen Dr. Devan Barrera MD Work Phone: Start: 05-28-[address] Garrett Barrera MD Work Phone: Start: 05-27-2025 X-ray of chest, PA and lateral views Dr. Devan Barrera MD Work Phone: Start: 05-26-2025 Influenza & RSV (PCR) Dr. Devan baptiste MD Work Phone: Start: 05-26-[address] Devan Barrera MD Work Phone: Start: 05-26-[address] Devan Barrera MD Work Phone: Start: 05-26-2025 CT angiography of chest with contrast Dr. Devan Barrera MD Work Phone: Start: 05-26-2025 X-ray of chest, PA and lateral views Dr. Devan Barrera MD Work Phone: Start: 05-26-2025 D-dimer assay, quantitative Dr. Genaro Barrera MD Work Phone: Comment on above: D-Dimer ELEVATED (>0.49): Additional stella dies and clinicalassessments are indicated to conclude diagnosis of:Deep Vein Thrombosis (DVT) or Pulmonary Embolism (PE) Start: 05-26-[address] Garrett Barrera MD Work Phone: Start: 05-26-[address] Eligio Barrera MD Work Phone: Start: 05-24-2025 Plain X-ray abdomen Dr. Devan Barrera MD Work Phone: Start: 05-24-2025 Vitamin D, 25-hydroxy measurement Dr. Corinna Barrera MD Work Phone: Comment on above: Vitamin D StatusDeficiency: <20 ng/mL (5 0nmol/L)Insufficiency: 20-30 ng/mL (50-75 nmol/L)Sufficiency: 30-100 ng/mL (75-250 nmol/L)Toxicity: >100 ng/mL (>250 nmol/L) Start: 05-21-2025 Urnls dip stick/tablet reagent auto microscopy Dr. Devan Barrera MD Work Phone: Start: 05-21-2025 CT of head without contrast Dr. Genaro Barrera MD Work Phone: Start: 05-21-2025 X-ray of chest, PA and lateral views Dr. Devan Barrera MD Work Phone: Start: 05-21-[address] Devan Barrera MD Work Phone: Start: 05-20-2025 Renal function panel Elaine Madrigal [employer] Work Phone: Start: 05-19-2025 Radiologic exam abdomen 1 view Elaine Madrigal [employer] Work Phone: Start: 05-15-2025 Radiologic exam abdomen 1 view Rajwinder Omer MD Work Phone: Start: 05-15-2025 Glucose quantitative blood xcpt reagent strip Lay Waldrop MD Work Phone: Start: 05-14-2025 WARD SERVICE SUPERVISOR MODIFIED BARIUM SWALLOW EVALUATION Rajwinder Omer MD Work Phone: Start: 05-14-2025 Radiologic exam swallow function contrast study Rajwinder Omer MD Work Phone: Start: 05-14-2025 Blood count complete automated Rajwinder Omer MD Work Phone: Start: 05-13-2025 Echo tthrc r-t 2d w/wom-mode compl spec&colr d Rajwinder Omer MD Work Phone: Start: 05-13-2025 Renal function panel Rajwinder Omer MD Work Phone: Start: 05-12-2025 Renal function panel Frida Granda MD Work Phone: Start: 05-11-2025 Basic metabolic panel calcium total Daryl Randolph Start: 05-11-2025 Radiologic exam pelvis compl minimum 3 views Miguel Resendiz MD Work Phone: Start: 05-11-2025 Ecg routine ecg w/least 12 lds trcg only w/o i&r Miguel Resendiz MD Work Phone: Start: 05-11-2025 Radiologic exam chest single view Caio George MD Work Phone: Start: 05-10-2025 Ct head/brain w/o contrast material Carri Greer MD Work Phone: Start: 05-10-2025 Simple repair f/e/e/n/l/m 2.6cm-5.0 cm Brandee Hawkins PA-C Work Phone: Start: 05-10-2025 Assay of troponin quantitative Santiago Menendez DO Work Phone: Start: 05-10-2025 End: 05-10-2025 Radex hand minimum 3 views Santiago schultz DO Work Phone: Start: 05-10-2025 Ct thorax w/contrast material Santiago Menendez DO Work Phone: Start: 05-10-2025 Ct cervical spine w/o contrast material Santiago Menendez DO Work Phone: Start: 05-10-2025 End: 05-10-2025 Ct head/brain w/o contrast material Santiago Menendez DO Work Phone: Start: 05-10-2025 Basic metabolic panel calcium total Santiago Menendez DO Work Phone: Start: 05-10-2025 Blood typing serologic rh (d) Santiago Menendez DO Work Phone: Start: 05-10-2025 Troponin I.cardiac panel - Serum or Plasma by High sensitivity method Santiago Menendez DO Work Phone: Start: 04-10-2025 Radex ribs uni w/posteroant ch minimum 3 views Lincoln King [employer] Work Phone: Start: 11-20-2024 Lipid 1996 panel - Serum or Plasma Lincoln King [employer] Work Phone: Start: 09-01-2024 Ecg routine ecg w/least 12 lds w/i&r Don Barrera MD Work Phone: Start: 07-31-2024 Echo tthrc r-t 2d w/wom-mode compl spec&colr d Otoniel Salcedo MD Work Phone: Start: 06-17-2024 Dup-scan aorta ivc iliac vascl/bpgs complete Don Barrera MD Work Phone: Start: 05-13-2024 Lipid 1996 panel - Serum or Plasma [facility] 1 Start: 03-05-2024 Computerized ophthalmic imaging retina Delta Bangura MD Work Phone: Start: 02-12-2024 Adult depression screening assessment Sage Kwon MD Work Phone: Start: 12-07-2023 Ecg routine ecg w/least 12 lds trcg only w/o i&r Celsoyesi Cabezas DO Work Phone: Start: 12-07-2023 Mri brain brain stem w/o contrast material Celso Cabezas DO Work Phone: Start: 12-07-2023 Urnls dip stick/tablet rgnt auto w/o microscopy Celso Cabezas DO Work Phone: Start: 12-07-2023 Comprehensive metabolic panel Celso Cabezas DO Work Phone: Start: 11-16-2023 Ecg routine ecg w/least 12 lds trcg only w/o i&r Celso Cande Cabezas DO Work Phone: Start: 11-15-2023 Assay of troponin quantitative Bhargavi SMITHC Work Phone: Start: 11-15-2023 Influenza virus A and B and SARS-CoV-2 (COVID-19) identified in Respiratory specimen by DONY with probe detection Bhargavi OROZCO-C Work Phone: Start: 11-15-2023 Urnls dip stick/tablet rgnt auto w/o microscopy Bhargavi Feliciano PA-C Work Phone: Start: 11-15-2023 Radiologic exam chest single view Nam OROZCO-C Work Phone: Start: 11-15-2023 Ct head/brain w/o contrast material Bhargavi Feliciano PA-C Work Phone: Start: 11-15-2023 End: 11-15-2023 Comprehensive metabolic panel Bhargavi Feliciano PA-C Work Phone: Start: 11-15-2023 Troponin I.cardiac panel - Serum or Plasma by High sensitivity method Bhargavi Feliciano PA-C Work Phone: Start: 11-12-2023 Ecg routine ecg w/least 12 lds trcg only w/o i&r Sai Myers MD Work Phone: Start: 11-11-2023 Radiologic exam chest single view Sai Myers MD Work Phone: Start: 11-11-2023 Urnls dip stick/tablet rgnt auto w/o microscopy Sai Myers MD Work Phone: Start: 11-11-2023 Basic metabolic panel calcium total Sai Myers MD Work Phone: Start: 11-06-2023 Radiologic exam esophagus single contrast study Daysi Arenas DO Work Phone: Start: 11-01-2023 Lipid 1996 panel - Serum or Plasma Garrett Barrera MD Work Phone: Start: 10-24-2023 SKIN PREP Eladio Halln DPM Work Phone: Start: 10-06-2023 Urnls dip stick/tablet rgnt non-auto w/o micrscp Clark Lees PA-C Work Phone: Start: 09-17-2023 MEASURE POST VOID RESIDUAL Robb Baptiste Work Phone: Start: 08-29-2023 Fundus photography w/interpretation & report Delta Bangura MD Work Phone: Start: 07-22-2023 End: 07-22-2023 Basic metabolic panel calcium total Sai Myers MD Work Phone: Start: 05-31-2023 Arthrocentesis aspir&/inj major jt/bursa w/o us Don Barrera MD Work Phone: Start: 04-30-2023 Lipid 1996 panel - Serum or Plasma Garrett Barrera MD Work Phone: Start: 02-21-2023 Computerized ophthalmic imaging retina Delta Bangura MD Work Phone: Start: 05-09-2021 Ecg routine ecg w/least 12 lds w/i&r Heather Paredes MD Work Phone: Start: 04-07-2020 Comprehensive metabolic 2000 panel Garrett Barrera Start: 04-07-2020 Lipoprotein direct measurement ldl cholesterol Don Barrera Start: 03-08-2020 Myocardial spect single study at rest or stress Heather Paredes Work Phone: Start: 12-10-2019 Mri any jt upper extremity w/o contrast matrl Vijay Atkinshard Work Phone: Start: 11-12-2019 Ultrasound Kidney Bilateral Robb Colindres II Start: 10-03-2019 Comprehensive metabolic 2000 panel Garrett Barrera Start: 10-03-2019 Lipid panel Don Barrera Start: 09-11-2019 Basic metabolic 2000 panel - Serum or Plasma Vijay Viveros Work Phone: Start: 09-11-2019 Hemoglobin and Hematocrit panel - Blood Vijay Viveros Work Phone: Start: 09-10-2019 Radex hip unilateral with pelvis 2-3 views Vijay Atkinshard Work Phone: Start: 09-10-2019 End: 09-10-2019 ARTHROPLASTY HIP ROBOTIC Vijay Atkinshard Work Phone: Start: 08-19-2019 Ct lower extremity w/o contrast material Vijay Viveros Work Phone: Start: 05-19-2019 12 lead ECG Heather Paredes Work Phone: Start: 03-20-2019 [object Object] Comment on above: Result Comment: AGE-SPECIFIC REFERENCE R ANGES FOR SERUM PSA REFERENCE RANGE NG/ML AGE ASIANS BLACKS WHITE 40-49 0-2 0-2 0-2.5 50-59 0-3 0-4 0-3.5 60-69 0-4 0-4.5 0-4.5 70-79 0-5 0-5.5 0-6.5 PSA INCREASES WITH AGE, RACE, AND EJACULATION WITHIN 48 HRS. [facility] VOL24,NO.2, , PG.339 Performed By: #### 2 [id number] #### LUIS MANUEL [employer] [address] [place] [address] Start: 11-18-2014 End: 12-30-2015 History of cataract extraction S/P laser cataract surgery - Both Eyes Delta Bangura MD Work Phone: Biopsy of skin Don Barrera Work Phone: Cataract surgery Kelli Arteaga Fiberoptic colonoscopy Kelli Arteaga History of Inguinal Hernia Repair Kelli Arteaga History Of Prior Surgery Fara Arteaga Comment on above: Cath of both left and right sides withou t graft by Dr Paredes in 2010; Prosthetic arthroplasty of the hip Don Barrera Comment on above: L THR, 2018, Felice; Repair of shoulder Eligio Barrear Work Phone: Comment on above: reverse lt shoulder relplacement Dr Stacy ferrer 2019; Tonsillectomy and adenoidectomy Kelli Arteaga Total replacement of hip Chr caesar Barrera Work Phone: Comment on above: L THR, 2018, Felice; Plan of Treatment Date Care Activity Detail Author Start: 05-10-2035 DTaP/Tdap/Td Vaccines (2 - Td or Tdap) DTaP/Tdap/Td Vaccines (2 - Td or Tdap) [facility] Start: 11-20-2029 Lipid panel Lipid Panel [facility] Start: 05-13-2029 Lipid panel Lipid Panel [facility] Start: 11-01-2028 Lipid panel Lipid Panel [facility] Start: 04-30-2028 Lipid panel Lipid Panel [facility] Start: 12-07-2026 Diabetes Screening Diabetes Screening [facility] Start: 08-06-2026 Diabetes mellitus screening Diabetes Screening [facility] Start: 08-04-2026 Diabetes mellitus screening Diabetes Screening [facility] Start: 08-01-2026 Medicare Annual Wellness Visit Medicare Annual Wellness Visit (AWV) [facility] Start: 07-22-2026 Diabetes Screening Diabetes Screening [facility] Start: 05-20-2026 Diabetes mellitus screening Diabetes Screening [facility] Start: 05-10-2026 Diabetes mellitus screening Diabetes Screening [facility] Start: 01-02-2026 DIABETES SCREEN DIABETES SCREEN [facility] Start: 11-10-2025 Diabetes mellitus screening Diabetes Screening [facility] Start: 08-19-2025 End: 08-19-2025 Patient encounter procedure 08/19/2025 8:[address] [facility] [address] [place] [phone] [facility] Start: 08-17-2025 End: 08-17-2025 Patient encounter procedure 08/17/2025 3:20 PM EDT Office Visit [address] [phone] Don Barrera MD [address] [address] [facility] Start: 07-31-2025 End: 07-31-2026 RF videography Hypopharynx and Esophagus Views for swallowing function W speech and W barium contrast PO FL modified barium swallow study Imaging Routine Dysphagia, unspecified type Expected: 07/31/2025, Expires: 07/31/2026 [facility] Service Area Work Phone: Comment on above: Expected: 07/31/2025, Expires: Start: 07-31-2025 End: 07-31-2025 Patient encounter procedure 07/31/2025 1:40 PM EDT Office Visit [address] [phone] Don Barrera MD [address] [address] [facility] Start: 07-28-2025 COVID-19 Vaccine ( season) COVID-19 Vaccine ( season) [facility] Start: 07-17-2025 End: 07-17-2026 CBC W Auto Differential panel - Blood [facility] Service Area Work Phone: Comment on above: Expected: 07/17/2025 (Approximate), Expi res: 07/17/2026 Start: 07-17-2025 End: 07-17-2026 Comprehensive metabolic 2000 panel - Serum or Plasma [facility] Work Phone: Comment on above: Expected: 07/17/2025 (Approximate), Expi res: 07/17/2026 Start: 07-16-2025 End: 07-16-2025 Patient encounter procedure 07/16/2025 11:30 AM EDT Office Visit [facility] Office [address] [address] [address] [place] [phone] David Canela, [employer] [address] [place] [address] [facility], [address] [place] [address] [facility] Start: 07-16-2025 Patient discharge [facility] Start: 07-15-2025 End: 07-15-2025 Development of care plan [facility] Start: 07-15-2025 Speech therapy management [facility] Start: 07-15-2025 [facility] Start: 07-14-2025 Wound care [facility] Start: 07-14-2025 Developing a treatment plan [facility] Start: 07-14-2025 Following clinical pathway protocol [facility] Start: 07-10-2025 Referral to service [facility] Start: 07-10-2025 End: 07-10-2025 Patient encounter procedure 07/10/2025 8:00 AM EDT Office Visit [facility] [address] [place] [phone] Eladio Kingsley Jr., DPM [address] [phone] [facility] Start: 07-09-2025 End: 07-09-2025 Patient encounter procedure 07/09/2025 11:45 AM EDT Office Visit [facility] Office [address] [address] [address] [place] [phone] Otoniel Salcedo MD [address] Ingrid Maher, [address] [place] [address] [facility] Start: 07-01-2025 [facility] Start: 06-28-2025 [facility] Start: 06-26-2025 Wound care [facility] Start: 06-24-2025 [facility] Start: 06-22-2025 Influenza vaccination Influenza Vaccine (#1) [facility] Start: 06-17-2025 Developing a treatment plan [facility] Start: 06-17-2025 Egd insert guide wire dilator passage esophagus EGD GUIDE WIRE INSERTION [facility] Start: 06-17-2025 Esophagogastroduodenoscopy submucosal injection UPPR GI SCOPE W/SUBMUC INJ [facility] Start: 06-17-2025 Development of care plan [facility] Start: 06-17-2025 Patient discharge [facility] Start: 06-16-2025 End: 06-17-2025 [facility] Start: 06-15-2025 [facility] Start: 06-13-2025 [facility] Start: 06-11-2025 [facility] Start: 06-08-2025 [facility] Start: 06-02-2025 Application of elastic bandage [facility] Start: 05-29-2025 End: 05-29-2025 Patient encounter procedure 05/29/2025 9:00 AM EDT Office Visit [facility] [address] [place] [address] [place] [address] [place] [address] [facility] Start: 05-27-2025 [facility] Start: 05-27-2025 Following clinical pathway protocol [facility] Start: 05-27-2025 Patient discharge [facility] Start: 05-26-2025 Oxygen therapy [facility] Start: 05-26-2025 Egd percutaneous placement gastrostomy tube EGD PLACE GASTROSTOMY TUBE [facility] Start: 05-26-2025 Upper gastrointestinal endoscopy for directed placement of percutaneous gastrostomy tube EGD PLACE GASTROSTOMY TUBE [facility] Start: 05-26-2025 End: 05-26-2025 Following clinical pathway protocol [facility] Start: 05-26-2025 Inhalation therapy procedure [facility] Start: 05-25-2025 Referral to gastroenterology service [facility] Start: 05-22-2025 Wound care [facility] Start: 05-21-2025 Speech therapy management [facility] Start: 05-21-2025 Development of care plan [facility] Start: 05-21-2025 [facility] Start: 05-21-2025 Developing a treatment plan [facility] Start: 05-21-2025 Verification routine [facility] Start: 05-20-2025 End: 05-21-2025 Patient referral to dietitian [facility] Start: 05-20-2025 Contact precautions [facility] Start: 05-20-[address] [facility] Start: 05-20-2025 Admission procedure [facility] Start: 05-20-2025 Introduction of urinary catheter [facility] Start: 05-20-2025 Measuring intake and output [facility] Start: 05-20-2025 Referral for physical therapy [facility] Start: 05-20-2025 Referral to occupational therapist [facility] Start: 05-20-2025 Referral to service [facility] Start: 05-20-2025 Speech therapy assessment [facility] Start: 05-20-2025 Vital signs measurements [facility] Start: 05-20-2025 End: 05-20-2025 [facility] Start: 05-20-2025 End: 11-20-2025 Comprehensive metabolic 2000 panel - Serum or Plasma Comprehensive Metabolic Panel Lab Routine Mixed hyperlipidemia Primary hypertension Expected: 05/20/2025 (Approximate), Expires: 11/20/2025 [facility] Work Phone: Comment on above: Expected: 05/20/2025 (Approximate), Expi res: 11/20/2025 Start: 05-20-2025 End: 11-20-2025 Lipid 1996 panel - Serum or Plasma Lipid Panel Lab Routine Mixed hyperlipidemia Expected: 05/20/2025 (Approximate), Expires: 11/20/2025 [facility] Work Phone: Comment on above: Expected: 05/20/2025 (Approximate), Expi res: 11/20/2025 Start: 05-20-2025 Medicare Annual Wellness Visit Medicare Annual Wellness Visit (AWV) [facility] Start: 05-20-2025 End: 11-20-2025 Prostate specific Ag [Mass/volume] in Serum or Plasma Prostate Specific Antigen, Screen Lab Routine Benign prostatic 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 lower urinary tract symptoms Screening for prostate cancer Expected: 05/20/2025 (Approximate), Expires: 11/20/2025 [facility] Work Phone: Comment on above: Expected: 05/20/2025 (Approximate), Expi res: 11/20/2025 Start: 05-20-2025 End: 05-20-2025 Patient encounter procedure 05/20/2025 8:40 AM EDT Office Visit [address] [phone] Don Barrera MD [address] [place] [address] [facility] Start: 05-19-2025 Medicare Wellness Visit Medicare Wellness Visit [facility] Start: 05-19-2025 End: 05-19-2025 ambulatory 05/19/2025 1:15 PM EDT Evaluation [address] [address] [place] [address] Carlos Trimble, PT [address] [place] [address] [facility] Start: 05-18-2025 End: 05-18-2025 ambulatory 05/18/2025 1:15 PM EDT Evaluation [facility] [address] [place] [address] Carlos Trimble, PT [address] [place] [address] [facility] Start: 05-12-2025 End: 05-12-2025 Patient encounter procedure 05/12/2025 2:15 PM EDT Office Visit [facility] [address] [place] [phone] Raj Parker MD [address] [place] [address] [facility] Start: 05-07-2025 End: 05-07-2026 XR Cervical spine 2 or 3 Views XR cervical spine 2-3 views Imaging Routine Neck pain Expected: 05/07/2025, Expires: 05/07/2026 [facility] Service Area Work Phone: Comment on above: Expected: 05/07/2025, Expires: Start: 04-10-2025 End: 04-10-2025 Patient encounter procedure 04/10/2025 8:00 AM EDT Office Visit [facility] [address] [place] [phone] Eladio Kingsley Jr., DPM [address] [phone] [facility] Start: 03-10-2025 End: 03-10-2025 Patient encounter procedure 03/10/2025 3:30 PM EDT Office Visit [facility] [address] [id number] Delta Bangura MD [address] [place] [address] amd Ophthalmology Comment on above: amd Start: 02-19-2025 COVID-19 Vaccine (7 - Moderna risk season) COVID-19 Vaccine (7 - Moderna risk season) [facility] Start: 02-19-2025 COVID-19 Vaccine () COVID-19 Vaccine ( - season) [facility] Start: 02-19-2025 COVID-19 Vaccine (8 - Moderna risk season) COVID-19 Vaccine (8 - Moderna risk season) [facility] Start: 02-11-2025 Depression screening using PHQ-9 (Patient Health Questionnaire 9) score [facility] Start: 12-31-2024 End: 12-31-2024 Patient encounter procedure 12/31/2024 8:15 AM EDT Office Visit [facility] [address] [place] [address] Eladio Kingsley Jr., DPM [address] [place] [address] [facility] Start: 11-20-2024 End: 11-20-2025 Cholesterol in LDL [Mass/volume] in Serum or Plasma Cholesterol, LDL Direct Lab Routine Mixed hyperlipidemia Expected: 11/20/2024 (Approximate), Expires: 11/20/2025 [facility] Work Phone: Comment on above: Expected: 11/20/2024 (Approximate), Expi res: 11/20/2025 Start: 11-20-2024 End: 11-20-2025 Cobalamin (Vitamin B12) [Mass/volume] in Serum or Plasma Vitamin B12 Lab Routine Anemia, unspecified type Inflammatory polyarthropathy (Multi) Expected: 11/20/2024 (Approximate), Expires: 11/20/2025 [facility] Service Area Work Phone: Comment on above: Expected: 11/20/2024 (Approximate), Expi res: 11/20/2025 Start: 11-20-2024 End: 11-20-2025 Ferritin [Mass/volume] in Serum or Plasma Ferritin Lab Routine Anemia, unspecified type Inflammatory polyarthropathy (Multi) Expected: 11/20/2024 (Approximate), Expires: 11/20/2025 [facility] Work Phone: Comment on above: Expected: 11/20/2024 (Approximate), Expi res: 11/20/2025 Start: 11-20-2024 End: 11-20-2025 Folate [Mass/volume] in Serum or Plasma Folate Lab Routine Anemia, unspecified type Inflammatory polyarthropathy (Multi) Expected: 11/20/2024 (Approximate), Expires: 11/20/2025 [facility] Work Phone: Comment on above: Expected: 11/20/2024 (Approximate), Expi res: 11/20/2025 Start: 11-20-2024 End: 11-20-2024 Patient encounter procedure [facility] Start: 11-15-2024 Diabetes mellitus screening Diabetes Screening [facility] Start: 09-05-2024 End: 09-05-2024 Patient encounter procedure 09/05/2024 8:00 AM EST Office Visit [facility] Physician [facility] [address] [place] [phone] Eladio Kingsley Jr., DPM [address] [place] [address] [facility] Start: 09-01-2024 End: 09-01-2025 CBC W Auto Differential panel - Blood CBC and Auto Differential Lab Routine Vertigo Palpitations Expected: 09/01/2024 (Approximate), Expires: 09/01/2025 [facility] Work Phone: Comment on above: Expected: 09/01/2024 (Approximate), Expi res: 09/01/2025 Start: 09-01-2024 End: 09-01-2025 Comprehensive metabolic 2000 panel - Serum or Plasma Comprehensive Metabolic Panel Lab Routine Vertigo Palpitations Expected: 09/01/2024 (Approximate), Expires: 09/01/2025 [facility] Work Phone: Comment on above: Expected: 09/01/2024 (Approximate), Expi res: 09/01/2025 Start: 09-01-2024 End: 03-01-2026 Holter monitor study Holter Or Event Director Of Sports Performance Cardiac Services Routine Vertigo Palpitations Expected: 09/01/2024, Expires: 03/01/2026 [facility] Service Area Work Phone: Comment on above: Expected: 09/01/2024, Expires: Start: 09-01-2024 End: 09-01-2025 TSH with reflex to Free T4 if abnormal TSH with reflex to Free T4 if abnormal Lab Routine Vertigo Palpitations Expected: 09/01/2024 (Approximate), Expires: 09/01/2025 [facility] Work Phone: Comment on above: Expected: 09/01/2024 (Approximate), Expi res: 09/01/2025 Start: 07-31-2024 End: 07-31-2024 Patient encounter procedure 07/31/2024 8:[address] [facility] [address] [place] [address] 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 Expected: 07/03/2024 (Approximate), Expires: 07/03/2026 [facility] Work Phone: Comment on above: Expected: 07/03/2024 (Approximate), Expi res: 07/03/2026 Start: 07-03-2024 End: 07-03-2024 Patient encounter procedure 07/03/2024 11:45 AM EDT Office Visit [facility] [address] [place] [address] Otoniel Salcedo MD [address], [address] [place] [address] [facility] Start: 06-26-2024 FUV, Provider: Otoniel Salcedo, Status: Pen, Time: 8:30 AM FUV, Provider: Otoniel Salcedo, Status: Pen, Time: 8:30 AM [id number] [place] Work Phone: Start: 06-26-2024 End: 06-26-2024 Patient encounter procedure [facility] Start: 06-22-2024 COVID-19 Vaccine ( season) COVID-19 Vaccine ( season) [facility] Start: 06-22-2024 Influenza vaccination Influenza Vaccine (#1) [facility] Start: 06-06-2024 End: 06-06-2024 Patient encounter procedure 06/06/2024 8:00 AM EDT Office Visit [facility] [address] [place] [address] Eladio Kingsley Jr., DPM [address] [place] [address] [facility] Start: 05-19-2024 End: 05-19-2024 Patient encounter procedure 05/19/2024 8:00 AM EDT Office Visit [facility] [address] [place] [address] Don Barrera MD [address] [phone] [facility] Start: 05-05-2024 End: 11-05-2024 Comprehensive metabolic 2000 panel - Serum or Plasma Comprehensive Metabolic Panel Lab Routine Mixed hyperlipidemia Primary hypertension Expected: 05/05/2024 (Approximate), Expires: 11/05/2024 [facility] Service Area Work Phone: Comment on above: Expected: 05/05/2024 (Approximate), Expi res: 11/05/2024 Start: 05-05-2024 End: 11-05-2024 Lipid 1996 panel - Serum or Plasma Lipid Panel Lab Routine Mixed hyperlipidemia Expected: 05/05/2024 (Approximate), Expires: 11/05/2024 [facility] Work Phone: Comment on above: Expected: 05/05/2024 (Approximate), Expi res: 11/05/2024 Start: 05-05-2024 Medicare Annual Wellness Visit Medicare Annual Wellness Visit (AWV) [facility] Start: 05-05-2024 End: 11-05-2024 Prostate specific Ag [Mass/volume] in Serum or Plasma Prostate Specific Antigen, Screen Lab Routine Screening for prostate cancer Expected: 05/05/2024 (Approximate), Expires: 11/05/2024 [facility] Work Phone: Comment on above: Expected: 05/05/2024 (Approximate), Expi res: 11/05/2024 Start: 05-04-2024 History and physical examination, annual for health maintenance Wellness Visit [facility] Start: 03-10-2024 Diabetes mellitus screening Diabetes Screening [facility] Start: 02-29-2024 End: 02-29-2024 Patient encounter procedure 02/29/2024 8:00 AM EDT Office Visit [facility] Physician [facility] [address] [place] [phone] Eladio Kingsley Jr., DPM [address] [place] [address] [facility] Start: 12-23-2023 COVID-19 Vaccine ( season) COVID-19 Vaccine ( season) [facility] Start: 12-19-2023 End: 12-19-2023 ambulatory 12/19/2023 9:15 AM EST Treatment [facility] [address] [place] [address] Guilherme Elmore, PT [address] [facility] [place] [address] [facility] Start: 12-17-2023 End: 12-17-2023 Patient encounter procedure 12/17/2023 11:20 AM EST [facility] Visit [facility] [address] [place] [phone] Don Barrera MD [address] [phone] [facility] Start: 12-14-2023 End: 12-14-2023 ambulatory 12/14/2023 11:30 AM EST Treatment [facility] [address] [place] [phone] Cecy Linn, [employer]SEM[employer]ER [address] [facility] [address] [place] [phone] [facility] Start: 12-12-2023 End: 12-12-2023 ambulatory 12/12/2023 2:15 PM EST Treatment [address] [address] Guilherme Elmore, PT [address] [facility] [place] [phone] [facility] Start: 12-06-2023 End: 12-06-2023 Patient encounter procedure 12/06/2023 2:00 PM EST Office Visit [facility] [address] [phone] Daysi Arenas, DO [address] [facility], [place] [phone] [facility] Start: 11-30-2023 End: 11-30-2023 Patient encounter procedure 11/30/2023 8:00 AM EST Office Visit [facility] [address] [place] [phone] Eladio Kingsley Jr., DPM [address] [phone] [facility] Start: 11-21-2023 End: 11-21-2023 ambulatory 11/21/2023 3:45 PM EST Evaluation [facility] [address] [place] [phone] Guilherme Elmore, PT [address] [facility] [place] [address] [facility] Start: 11-15-2023 End: 11-15-2023 Patient encounter procedure 11/15/2023 8:15 AM EST Office Visit [facility] [address] [facility] [address] [place] [phone] Daysi Arenas DO [address] [facility], [address] [place] [address] [facility] Start: 11-06-2023 End: 11-06-2023 Patient encounter procedure 11/06/2023 7:[address] [facility] [address] [place] [address] [facility] Start: 11-05-2023 End: 11-05-2023 Patient encounter procedure [facility] Start: 11-04-2023 End: 05-04-2024 Cholesterol in LDL [Mass/volume] in Serum or Plasma Cholesterol, LDL Direct Lab Routine Mixed hyperlipidemia Expected: 11/04/2023 (Approximate), Expires: 05/04/2024 [facility] Work Phone: Comment on above: Expected: 11/04/2023 (Approximate), Expi res: 05/04/2024 Start: 11-04-2023 End: 05-04-2024 Comprehensive metabolic 2000 panel - Serum or Plasma Comprehensive Metabolic Panel Lab Routine Primary hypertension Expected: 11/04/2023 (Approximate), Expires: 05/04/2024 [facility] Service Area Work Phone: Comment on above: Expected: 11/04/2023 (Approximate), Expi res: 05/04/2024 Start: 11-01-2023 End: 11-01-2024 RF Esophagus Views W barium contrast PO FL GI esophagram Imaging Routine 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 Hiatal hernia Expected: 11/01/2023 (Approximate), Expires: 11/01/2024 [facility] Service Area Work Phone: Comment on above: Expected: 11/01/2023 (Approximate), Expi res: 11/01/2024 Start: 10-31-2023 End: 10-31-2023 Patient encounter procedure 10/31/2023 8:00 AM EST Office Visit [facility] [address] [place] [phone] Eladio Kingsley Jr., DPM [address] [place] [address] [facility] Start: 10-22-2023 Advance Directive Discussion Advance Directive Discussion [facility] Start: 10-22-2023 Behavioral Health Screening Behavioral Health Screening [facility] Start: 10-19-2023 COVID-19 Vaccine (5 - Moderna series) COVID-19 Vaccine (5 - Moderna series) [facility] Start: 10-19-2023 Covid-19 Vaccine (2022- season) Covid-19 Vaccine ( season) [facility] Start: 10-06-2023 End: 10-06-2024 Urinalysis complete panel - Urine Urinalysis with Reflex Microscopic Lab Routine Dysuria Expected: 10/06/2023 (Approximate), Expires: 10/06/2024 [facility] Service Area Work Phone: Comment on above: Expected: 10/06/2023 (Approximate), Expi res: 10/06/2024 Start: 08-06-2023 End: 08-06-2023 Telemedicine consultation with patient 08/06/2023 8:15 AM EDT Telemedicine [facility] [address] [facility] [address] [place] [address] Robb Colindres MD [address] [facility], [address] [place] [address] [facility] Start: 06-22-2023 Influenza vaccination [facility] Start: 06-21-2023 FUV, Provider: Otoniel Salcedo, Status: Pen, Time: 8:30 AM FUV, Provider: Otoniel Salcedo, Status: Pen, Time: 8:30 AM [id number] Work Phone: Start: 06-21-2023 Patient encounter procedure Outpatient [facility] Start: 21-Jun-2023 8:30 Otoniel Salcedo Intent [facility] Start: 05-11-2023 End: 05-11-2023 Patient encounter procedure 05/11/2023 8:00 AM EDT Office Visit [facility] [address] [place] [phone] Eladio Kingsley Jr., DPM [address] [place] [address] [facility] Start: 05-04-2023 End: 05-04-2025 Vascular US abdominal aorta anuerysm AAA screening Vascular US abdominal aorta anuerysm AAA screening Vascular Ultrasound Routine 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) Expected: 05/04/2023 (Approximate), Expires: 05/04/2025 [facility] Work Phone: Comment on above: Expected: 05/04/2023 (Approximate), Expi res: 05/04/2025 Start: 05-04-2023 EPV, Provider: Don Barrera, Status: Pen, Time: 8:00 AM EPV, Provider: Don Barrera, Status: Pen, Time: 8:00 AM MP[facility] Work Phone: Start: 04-27-2023 EPV, Provider: Don Barrera, Status: Pen, Time: 8:20 AM EPV, Provider: Don Barrera, Status: Pen, Time: 8:20 AM -[facility] Work Phone: Start: 02-09-2023 End: 02-09-2023 Patient encounter procedure 02/09/2023 Office Visit PodiatrEladio Diaz Jr., DPM [address] [place] [address] [facility] Start: 11-17-2022 End: 11-17-2022 Patient encounter procedure 11/17/2022 Office Visit PodiatrEladio Diaz Jr., DPM [address] [place] [address] [facility] Start: 10-27-2022 EPV, Provider: Don Barrera, Status: Pen, Time: 8:40 AM EPV, Provider: Don Barrera, Status: Pen, Time: 8:40 AM [id number] Work Phone: Start: 10-27-2022 Patient encounter procedure [facility] Start: 10-22-2022 ADVANCE DIRECTIVE DISCUSSION ADVANCE DIRECTIVE DISCUSSION [facility] Start: 10-22-2022 DEPRESSION ASSESSMENT DEPRESSION ASSESSMENT [facility] Start: 09-27-2022 COVID-19 Vaccine (5 - Booster for Moderna series) COVID-19 Vaccine (5 - Booster for Moderna series) [facility] Start: 09-27-2022 COVID-19 Vaccine (5 - Moderna series) COVID-19 Vaccine (5 - Moderna series) [facility] Start: 08-18-2022 End: 08-18-2022 Patient encounter procedure 08/18/2022 Office Visit PodiatrEladio Diaz Jr., DPM [address] [place] [address] [facility] Start: 06-22-2022 Influenza vaccination Sequential Influenza Vaccine (#1) [facility] Start: 06-16-2022 COVID-19 Vaccine (5 - Booster for Moderna series) COVID-19 Vaccine (5 - Booster for Moderna series) [facility] Start: 06-15-2022 NPV, Provider: Otoniel Salcedo, Status: Pen, Time: 8:30 AM NPV, Provider: Otoniel Salcedo, Status: Pen, Time: 8:30 AM [facility] Work Phone: Start: 05-19-2022 End: 05-19-2022 Patient encounter procedure 05/19/2022 Office Visit Podiatry Eladio Kingsley Jr., DPM [address] [place] [address] [facility] Start: 05-17-2022 FUV, Provider: Robb Colindres II, Status: Pen, Time: 1:00 PM FUV, Provider: Robb Colindres II, Status: Pen, Time: 1:00 PM CX-Kprmwda-Rzgeam d Work Phone: Start: 04-26-2022 EPV, Provider: Don Barrera, Status: Pen, Time: 8:20 AM EPV, Provider: Don Barrera, Status: Pen, Time: 8:20 AM [facility] Work Phone: Start: 03-08-2022 COVID-19 Vaccine (4 - Booster for Moderna series) COVID-19 Vaccine (4 - Booster for Moderna series) [facility] Start: 02-03-2022 End: 02-03-2022 Patient encounter procedure 02/03/2022 Office Visit Podiatry Eladio Kingsley Jr., DPM [address] [place] [address] [facility] Start: 12-09-2021 COVID-19 Vaccine (4 - Booster for Moderna series) COVID-19 Vaccine (4 - Booster for Moderna series) [facility] Start: 11-15-2021 FUV, Provider: Zoran Bennett, Status: Pen, Time: 11:15 AM FUV, Provider: Zoran Bennett, Status: Pen, Time: 11:15 AM -[facility] Work Phone: Start: 10-26-2021 EPV, Provider: Don Barrera, Status: Pen, Time: 8:00 AM EPV, Provider: Don Barrera, Status: Pen, Time: 8:00 AM [facility] Work Phone: Start: 08-12-2021 End: 08-12-2021 Patient encounter procedure [facility] Start: 07-01-2021 End: 07-01-2021 Patient encounter procedure 07/01/2021 Office Visit Sports Medicine Vijay Viveros MD [address] [place], [place] [phone] [facility] Start: 06-23-2021 PTRECHADREAL, Provider: Dioni Elmore, Status: Pen, Time: 1:15 PM PTRECHADREAL, Provider: Dioni Elmore, Status: Pen, Time: 1:15 PM [facility] Work Phone: Start: 06-22-2021 Influenza vaccination Sequential Influenza Vaccine (#1) [facility] Start: 06-21-2021 PTFUADULT4, Provider: Santy Moore, Status: Pen, Time: 1:15 PM PTFUADULT4, Provider: Santy Moore, Status: Pen, Time: 1:15 PM [facility] [place] Work Phone: Start: 06-21-2021 PTFUADULT4, Provider: Dina Callaway, Status: Pen, Time: 1:15 PM PTFUADULT4, Provider: Dina Callaway, Status: Pen, Time: 1:15 PM [facility] [place] Work Phone: Start: 06-16-2021 PTFUADULT4, Provider: Santy Moore, Status: Pen, Time: 1:15 PM PTFUADULT4, Provider: Santy Moore, Status: Pen, Time: 1:15 PM [facility] [place] Work Phone: Start: 06-14-2021 PTFUADULT4, Provider: Santy Moore, Status: Pen, Time: 1:15 PM PTFUADULT4, Provider: Santy Moore, Status: Pen, Time: 1:15 PM [facility] [place] Work Phone: Start: 06-10-2021 PTFUADULT4, Provider: Cecy Linn, Status: Pen, Time: 10:00 AM PTFUADULT4, Provider: Cecy Linn, Status: Pen, Time: 10:00 AM [facility] [place] Work Phone: Start: 06-07-2021 PTFUADULT4, Provider: Santy Moore, Status: Pen, Time: 2:45 PM PTFUADULT4, Provider: Santy Moore, Status: Pen, Time: 2:45 PM [facility] [place] Work Phone: Start: 06-02-2021 PTFUADULT4, Provider: Cornelius Moses, Status: Pen, Time: 10:00 AM PTFUADULT4, Provider: Cornelius Moses, Status: Pen, Time: 10:00 AM [facility] [place] Work Phone: Start: 05-30-2021 PTFUADULT4, Provider: Dioni Elmore, Status: Pen, Time: 5:15 PM PTFUADULT4, Provider: Dioni Elmore, Status: Pen, Time: 5:15 PM [facility] [place] Work Phone: Start: 05-20-2021 End: 05-20-2021 Patient encounter procedure [facility] Start: 05-18-2021 FUV, Provider: Robb Colindres II, Status: Pen, Time: 1:00 PM FUV, Provider: Robb Colindres II, Status: Pen, Time: 1:00 PM [facility] Work Phone: Start: 05-13-2021 End: 05-13-2021 Patient encounter procedure [facility] Start: 05-09-2021 End: 05-09-2021 Patient encounter procedure 05/09/2021 Office Visit Cardiology Heather Paredes MD [address] [place] [address] [phone] [facility] Office Start: 11-24-2020 COVID-19 Vaccine (2 - Moderna 2-dose series) COVID-19 Vaccine (2 - Moderna 2-dose series) [facility] Start: 11-19-2020 End: 11-19-2020 Office Visit 11/19/2020 Office Visit Sports Medicine Vijay Viveros MD [address] [place], [place] [phone] [facility] Start: 10-12-2020 End: 10-12-2020 Office Visit 10/12/2020 Office Visit Sports Medicine Santiago Bates MD [address] [place] [address] [phone] [facility] Start: 07-13-2020 End: 07-13-2020 Follow-Up 07/13/2020 Follow-Up Sports Medicine Santiago Bates MD [address] [place] [address] [phone] [facility] Start: 06-22-2020 Influenza vaccination given [facility] Start: 06-15-2020 End: 06-15-2020 Follow-Up 06/15/2020 Follow-Up Sports Santiago England MD [address] [place] [address] [phone] [facility] Start: 05-18-2020 End: 05-18-2020 Follow-Up 05/18/2020 Follow-Up Sports Medicine Santiago Bates MD [address] [place] [address] [phone] [facility] Start: 05-10-2020 End: 05-10-2020 Office Visit 05/10/2020 Office Visit Cardiology Heather Paredes MD [address] [place] [address] [address] [phone] [facility] Office Start: 05-03-2020 End: 05-03-2020 Office Visit 05/03/2020 Office Visit Cardiology Heather Paredes MD [address] [address] [phone] [facility] Office Start: 12-15-2019 End: 12-15-2019 Follow-Up 12/15/2019 Follow-Up Sports Medicine Vijay Viveros MD [address] [place] [address] [phone] [facility] Start: 12-08-2019 End: 12-08-2019 Follow-Up 12/08/2019 Follow-Up Sports Medicine Vijay Viveros MD [address] [place] [address] [phone] [facility] Start: 11-13-2019 Ultrasound Kidney Bilateral [id number]-Ptlcpa d Work Phone: Start: 11-06-2019 End: 11-06-2019 Appointment 11/06/2019 Appointment Home Health Services Jenifer Greene RN [facility] Start: 11-03-2019 End: 11-03-2019 Home Care Visit 11/03/2019 Home Care Visit Home Health Services Jenifer Greene RN [facility] Start: 10-31-2019 End: 10-31-2019 Home Care Visit 10/31/2019 Home Care Visit Home Health Services Jenifer Greene RN [facility] Start: 10-27-2019 End: 10-27-2019 Follow-Up 10/27/2019 Follow-Up Sports Medicine Vijay Viveros MD [address] [place] [address] [phone] [facility] Start: 10-27-2019 End: 10-27-2019 Home Care Visit 10/27/2019 Home Care Visit Home Health Services Jenifer Greene RN [facility] Start: 10-24-2019 End: 10-24-2019 Home Care Visit 10/24/2019 Home Care Visit Home Health Services Jenifer Greene RN [facility] Start: 10-20-2019 End: 10-20-2019 Home Care Visit 10/20/2019 Home Care Visit Home Health Services Jenifer Greene RN [facility] Start: 10-17-2019 End: 10-17-2019 Home Care Visit 10/17/2019 Home Care Visit [facility] [facility] Start: 10-13-2019 End: 10-13-2019 Home Care Visit 10/13/2019 Home Care Visit Home Health Services Jenifer Greene RN [facility] Start: 10-10-2019 End: 10-10-2019 Home Care Visit 10/10/2019 Home Care Visit Home Health Services Jenifer Greene RN [facility] Start: 10-06-2019 End: 10-06-2019 Home Care Visit 10/06/2019 Home Care Visit Home Health Services Jenifer Greene RN [facility] Start: 10-03-2019 End: 10-03-2019 Home Care Visit 10/03/2019 Home Care Visit Home Health Services Jenifer Greene RN [facility] Start: 10-02-2019 End: 10-02-2019 Home Care Visit 10/02/2019 Home Care Visit Home Health Services Jenifer Greene RN [facility] Start: 09-29-2019 End: 09-29-2019 Home Care Visit 09/29/2019 Home Care Visit Home Health Services Jenifer Greene RN [facility] Start: 09-26-2019 End: 09-26-2019 Home Care Visit 09/26/2019 Home Care Visit Home Health Services Jenifer Greene RN [facility] Start: 09-25-2019 End: 09-25-2019 Home Care Visit [facility] Home [facility] Start: 09-23-2019 End: 09-23-2019 Follow-Up 09/23/2019 Follow-Up Sports Medicine Vijay Viveros MD [address] [place] [address] [phone] [facility] Start: 09-22-2019 End: 09-22-2019 Home Care Visit [facility] Home [facility] Start: 09-19-2019 End: 09-19-2019 Home Care Visit 09/19/2019 Home Care Visit Home Health Services Jenifer Greene RN [facility] Start: 09-17-2019 End: 09-17-2019 Home Care Visit 09/17/2019 Home Care Visit Home Health Services Clemente Martínez PTA [facility] Start: 09-15-2019 End: 09-15-2019 Home Care Visit 09/15/2019 Home Care Visit Home Health Services Jenifer Greene RN [facility] Start: 09-12-2019 End: 09-12-2019 Appointment 09/12/2019 Appointment Home Health Services Milagro Leal RN [facility] Start: 09-12-2019 End: 09-12-2019 Home Care Visit 09/12/2019 Home Care Visit Home Health Services Chary Mayorga PT [facility] Start: 09-10-2019 End: 09-10-2019 Hospital Encounter [facility] Comment on above: 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 Robotic Start: 08-25-2019 End: 08-25-2019 Surgical Consult 08/25/2019 Surgical Consult Sports Medicine Vijay Viveros MD [address] [place] [address] [phone] [facility] Start: 06-22-2019 Influenza vaccination given SEQUENTIAL INFLUENZA VACCINE (#1) [facility] Start: 05-19-2019 End: 05-19-2019 Office Visit 05/19/2019 Office Visit Cardiology Heather Paredes MD [address] [address] [phone] [facility] Office Start: 06-22-2018 Influenza vaccination SEQUENTIAL INFLUENZA VACCINE (#1) [facility] Start: 10-11-2017 Pneumococcal vaccination Pneumococcal Vaccine Age 65+ (2 of 2 - PPSV23) [facility] Start: 2011 Respiratory Syncytial Virus Immunization: Risk, 60-74 Risk, or 75+ (1 - 1-dose 75+ series) Respiratory Syncytial Virus Immunization: Risk, 60-74 Risk, or 75+ (1 - 1-dose 75+ series) [facility] Start: 2001 Fall risk assessment Falls Risk Assessment [facility] Start: 2001 Pneumococcal vaccination PNEUMOCOCCAL VACCINE AGE 65+ (1 of 2 - PCV13) [facility] Start: 1996 RSV patients and/or patients aged 60+ years (1 - 1-dose 60+ series) RSV patients and/or patients aged 60+ years (1 - 1-dose 60+ series) [facility] Start: 1996 RSV Vaccine (1 - 1-dose 60+ series) RSV Vaccine (1 - 1-dose 60+ series) [facility] Start: 1996 Zoster vaccine hzv live for subcutaneous use ZOSTER VACCINE [facility] Start: 1986 Administration of herpes zoster vaccine Zoster Vaccines (1 of 2) [facility] Start: 1958 DTaP/Tdap/Td Vaccines (1 - Tdap) DTaP/Tdap/Td Vaccines (1 - Tdap) [facility] Start: 1955 SHINGRIX VACCINE (1 of 2) SHINGRIX VACCINE (1 of 2) [facility] Start: 1955 Urine microalbumin profile [facility] Start: 1948 Adolescent depression screening assessment Depression Screening (PHQ9) [facility] Start: 1948 Depression screening using PHQ-9 (Patient Health Questionnaire 9) score [facility] Start: 1942 Pneumococcal Vaccine: Age 65+ (1 of 2 - PPSV23) Pneumococcal Vaccine: Age 65+ (1 of 2 - PPSV23) [facility] Start: 1942 PNEUMOCOCCAL: 65+ (1 - PCV) PNEUMOCOCCAL: 65+ (1 - PCV) [facility] Start: 1939 History and physical examination, annual for health maintenance Wellness Visit [facility] Start: 1936 Depression screening using PHQ-9 (Patient Health Questionnaire 9) score DEPRESSION SCREENING (PHQ9) [facility] Start: 1936 Fall risk assessment Falls Risk Assessment [facility] Start: 1936 Medicare Annual Wellness Visit Medicare Annual Wellness Visit (AWV) [facility] Start: 1936 End: 1936 Tetanus vaccination [facility] Anion gap in Serum or Plasma [facility] Anion gap in Serum or Plasma [facility] Anion gap in Serum or Plasma [facility] Anion gap in Serum or Plasma [facility] BUN/Creatinine ratio [facility] BUN/Creatinine ratio [facility] BUN/Creatinine ratio [facility] BUN/Creatinine ratio [facility] Calcium [Mass/volume ] in Serum or Plasma [facility] Calcium [Mass/volume ] in Serum or Plasma [facility] Calcium [Mass/volume ] in Serum or Plasma [facility] Calcium [Mass/volume ] in Serum or Plasma [facility] Carbon dioxide, tota l [Moles/volume] in Central venous blood [facility] Carbon dioxide, tota l [Moles/volume] in Central venous blood [facility] Carbon dioxide, tota l [Moles/volume] in Central venous blood [facility] Carbon dioxide, tota l [Moles/volume] in Central venous blood [facility] Comprehensive metabo lic 2000 panel Comprehensive Metabolic Panel [facility] Work Phone: Comment on above: Approx [id number] Approx [id number] Creatinine [Mass/vol ume] in Serum or Plasma [facility] Creatinine [Mass/vol ume] in Serum or Plasma [facility] Creatinine [Mass/vol ume] in Serum or Plasma [facility] Creatinine [Mass/vol ume] in Serum or Plasma [facility] End: 07-22-2023 ECG 12 lead ECG 12 lead ECG STAT Once for 1 Occurrences starting 07/22/2023 until 07/22/2023 [facility] Work Phone: Comment on above: Once for 1 Occurrences starting 07/22/20 23 until 07/22/2023 End: 11-11-2023 ECG 12 lead [facility] Work Phone: Comment on above: Once for 1 Occurrences starting 11/11/19 until 11/11/2023 End: 11-15-2023 ECG 12 Lead [facility] Service [facility] Work Phone: Comment on above: Once for 1 Occurrences starting 11/15/19 until 11/15/2023 ECG 12 lead ECG 12 lead ECG STAT 12/07/2023 12:50 PM EST [facility] Work Phone: End: 05-10-2025 ECG 12 lead ECG 12 lead ECG STAT Once for 1 Occurrences starting 05/10/2025 until 05/10/2025 [facility] Service [facility] Work Phone: Comment on above: Once for 1 Occurrences starting 05/10/20 until 05/10/2025 End: 08-04-2025 ECG 12 lead [facility] Work Phone: Comment on above: Once for 1 Occurrences starting 08/04/20 until 08/04/2025 As needed until disc ontinued starting 08/04/2025 Erythrocyte mean cor puscular volume determination [facility] Erythrocyte mean cor puscular volume determination [facility] Erythrocyte mean cor puscular volume determination [facility] Erythrocyte mean cor puscular volume determination [facility] End: 11-11-2023 Extra Urine [place] Tube Extra Urine [facility] T[facility] Lab Timed Once for 1 Occurrences starting 11/11/2023 until 11/11/2023 [facility] Work Phone: Comment on above: Once for 1 Occurrences starting 11/11/19 until 11/11/2023 End: 11-15-2023 Extra Urine [place] Tube Extra Urine [facility] T[facility] Lab Timed Once for 1 Occurrences starting 11/15/2023 until 11/15/2023 [facility] Work Phone: Comment on above: Once for 1 Occurrences starting 11/15/19 until 11/15/2023 End: 12-07-2023 Extra Urine [place] Tube [facility] Work Phone: Comment on above: Once for 1 Occurrences starting 12/07/19 until 12/07/2023 End: 08-04-2025 Extra Urine [place] Work Phone: Comment on above: Once for 1 Occurrences starting 08/04/20 until 08/04/2025 Glucose [Mass/volume ] in Serum or Plasma [facility] Glucose [Mass/volume ] in Serum or Plasma [facility] Glucose [Mass/volume ] in Serum or Plasma [facility] Glucose [Mass/volume ] in Serum or Plasma [facility] Hematocrit [Volume F raction] of Blood [facility] Hematocrit [Volume F raction] of Blood [facility] Hematocrit [Volume F raction] of Blood [facility] Hematocrit [Volume F raction] of Blood [facility] Hemoglobin [Mass/vol ume] in Blood [facility] Hemoglobin [Mass/vol ume] in Blood [facility] Hemoglobin [Mass/vol ume] in Blood [facility] Hemoglobin [Mass/vol ume] in Blood [facility] History of cataract extraction H istory of cataract extraction [facility] History of hernia repair History of hernia repair [facility] History of tonsillectomy History of tonsillectomy and adenoidectomy [facility] End: 09-02-2024 Holter monitor study [facility] Service Area Work Phone: Comment on above: Once for 1 Occurrences starting 09/02/20 until 09/02/2024 End: 05-11-2025 Incentive spirometry Instruct Incentive spirometry Instruct Respiratory Care Routine Once for 1 Occurrences starting 05/11/2025 until 05/11/2025 [facility] Work Phone: Comment on above: Once for 1 Occurrences starting 05/11/20 until 05/11/2025 End: 08-04-2025 Incentive spirometry Instruct Incentive spirometry Instruct Respiratory Care Routine Once for 1 Occurrences starting 08/04/2025 until 08/04/2025 [facility] Work Phone: Comment on above: Once for 1 Occurrences starting 08/04/20 until 08/04/2025 Leukocytes [#/volume] in Blood [facility] Leukocytes [#/volume] in Blood [facility] Leukocytes [#/volume] in Blood [facility] Leukocytes [#/volume] in Blood [facility] Lipid panel Lipid Panel [facility] Work Phone: Comment on above: Approx [id number] Mean corpuscular hem oglobin concentration determination [facility] Mean corpuscular hem oglobin concentration determination [facility] Mean corpuscular hem oglobin concentration determination [facility] Mean corpuscular hem oglobin concentration determination [facility] Mean corpuscular hem oglobin determination [facility] Mean corpuscular hem oglobin determination [facility] Mean corpuscular hem oglobin determination [facility] Mean corpuscular hem oglobin determination [facility] Measurement of renal function [facility] Measurement of renal function [facility] Measurement of renal function [facility] Measurement of renal function [facility] End: 07-29-2024 MR Lumbar spine WO contrast [facility] Service Area Work Phone: Comment on above: Once for 1 Occurrences starting 07/29/20 until 07/29/2024 End: 07-29-2024 MR Pelvis WO contrast [facility] Service Area Work Phone: Comment on above: Once for 1 Occurrences starting 07/29/20 until 07/29/2024 Neutrophil count [facility] Neutrophil count [facility] Neutrophil count [facility] Neutrophil count [facility] Neutrophil percent d ifferential count [facility] Neutrophil percent d ifferential count [facility] Neutrophil percent d ifferential count [facility] Neutrophil percent d ifferential count [facility] Platelets [#/volume] in Blood [facility] Platelets [#/volume] in Blood [facility] Platelets [#/volume] in Blood [facility] Platelets [#/volume] in Blood [facility] Potassium measurement [facility] Potassium measurement [facility] Potassium measurement [facility] Potassium measurement [facility] Procedure on tissue specimen [facility] Comment on above: Release Upon Ordering for 1 Occurrences starting 09/10/2019, 1 completed End: 11-15-2023 Pulse oximetry, continuous Pulse oximetry, continuous Respiratory Care STAT Continuous until discontinued starting 11/15/2023 [facility] Service Area Work Phone: Comment on above: Continuous until discontinued starting 0 11/15/2023 Red blood cell count [facility] Red blood cell count [facility] Red blood cell count [facility] Red blood cell count [facility] Red cell distributio n width determination [facility] Red cell distributio n width determination [facility] Red cell distributio n width determination [facility] Red cell distributio n width determination [facility] Serum chloride measurement [facility] Serum chloride measurement [facility] Serum chloride measurement [facility] Serum chloride measurement [facility] Serum LDL cholestero l measurement LDL, Direct, Serum [facility] Work Phone: Comment on above: Approx [id number] Sodium measurement [facility] Sodium measurement [facility] Sodium measurement [facility] Sodium measurement [facility] Urea nitrogen [Mass/ volume] in Serum or Plasma [facility] Urea nitrogen [Mass/ volume] in Serum or Plasma [facility] Urea nitrogen [Mass/ volume] in Serum or Plasma [facility] Urea nitrogen [Mass/ volume] in Serum or Plasma [facility] End: 11-11-2023 Urinalysis complete W Reflex Culture panel - Urine [facility] Work Phone: Comment on above: Once (Lab) for 1 Occurrences starting until 11/11/2023 End: 11-15-2023 Urinalysis complete W Reflex Culture panel - Urine [facility] Work Phone: Comment on above: STAT (Lab) for 1 Occurrences starting until 11/15/2023 End: 12-07-2023 Urinalysis complete W Reflex Culture panel - Urine [facility] Service Area Work Phone: Comment on above: Once (Lab) for 1 Occurrences starting until 12/07/2023 End: 08-04-2025 Urinalysis complete W Reflex Culture panel - Urine [facility] Service Area Work Phone: Comment on above: Once (Lab) for 1 Occurrences starting until 08/04/2025 End: 05-08-2025 XR Cervical spine 2 or 3 Views [facility] Serv ice Area Work Phone: Comment on above: Once for 1 Occurrences starting 05/08/20 until 05/08/2025 End: 06-12-2024 XR Hip Views [facility] Service Area Work Phone: Comment on above: Once for 1 Occurrences starting 06/12/20 until 06/12/2024 End: 03-27-2024 XR Shoulder - right 2 Views [facility] Service Area Work Phone: Comment on above: Once for 1 Occurrences starting 03/27/20 until 03/27/2024 [facility] NEGATED: Highlighted row has been ruled out! Planned Goals not documented [facility] Work Phone: Immunizations Immunization Date Immunization Notes Care Provider [facility] 07-15-2025 influenza, high dose seasonal, preservative-free Dr. Devan Barrera MD Work Phone: [facility] 06-02-2025 Covid (Spikevax) Dr. Edmund Barrera MD Work Phone: [facility] 05-10-2025 tetanus toxoid, redu lamar diphtheria toxoid, and acellular pertussis vaccine, adsorbed Santiago Menendez DO Work Phone: [facility] 08-22-2024 Moderna COVID-19 vaccine, 12 years and older (50mcg/0.5mL)(Spikevax) Don Barrera MD Work Phone: [facility] Work Phone: 07-28-2024 RSV, 60 Years And Ol rajni (AREXVY) [facility] Work Phone: 07-07-2024 influenza virus vaccine, unspecified formulation [facility] Work Phone: 08-24-2023 Moderna COVID-19 vaccine, Fall 2022, 12 yeasrs and older (50mcg/0.5mL) Don Barrera MD Work Phone: [facility] Work Phone: 07-16-2023 influenza, high dose seasonal, preservative-free Don Barrera MD Work Phone: [facility] Work Phone: 07-16-2023 influenza virus vaccine, unspecified formulation Eladio Kingsley Jr. DPM Work Phone: [facility] 08-02-2022 Moderna COVID-19 Biv al Booster 50 MCG/0.5ML Intramuscular Suspension Don Barrera Work [facility] Work Phone: 08-02-2022 Moderna SARS-CoV-2 Vaccination Don Barrera MD Work Phone: [facility] Work Phone: 02-14-2022 Moderna COVID-19 Vaccine 100 MCG/0.5ML Intramuscular Suspension Don Barrera Work Phone: [facility] 09-08-2021 Moderna COVID-19 Vaccine 100 MCG/0.5ML Intramuscular Suspension Don Barrera Work Phone[facility] Work Phone: 07-19-2021 influenza, high dose seasonal, preservative-free Don Barrera Work Phone: [facility] Work Phone: 07-19-2021 influenza, seasonal, injectable Don Barrera Work Phone: [facility] Work Phone: Comment on above: Series: 07-19-2021 influenza virus vaccine, unspecified formulation Don Barrera MD Work Phone: [facility] Work Phone: 11-24-2020 Moderna COVID-19 Vaccine 100 MCG/0.5ML Intramuscular Suspension Don Barrera MD [id number] Work Phone: Comment on above: Series: 10-27-2020 Moderna COVID-19 Vaccine 100 MCG/0.5ML Intramuscular Suspension Don Barrera MD [facility] Work Phone: Comment on above: Series: 10-11-2020 pneumococcal polysaccharide vaccine, 23 valent; Translations: [Pneumococcal polysaccharide vaccine, 23 valent] Don Barrera MD [facility] Comment on above: Series: 07-26-2020 influenza, high dose seasonal, preservative-free; Translations: [Influenza, high dose seasonal, preservative-free] Don Barrera MD [id number] Work Phone: Comment on above: Series: 10-08-2018 zoster vaccine recombinant Don Barrera Work Phone: [facility] Work Phone: 08-05-2018 zoster vaccine recombinant Don Cande Barrera Work Phone: [facility] Work Phone: 07-25-2018 influenza, high dose seasonal, preservative-free Don Barrera Work Phone: [facility] Work Phone: 10-11-2016 pneumococcal conjuga te vaccine, 13 valent Don Barrera [facility] Work Phone: Comment on above: Series: 10-04-2009 novel [id number], preservative-free, injectable Don Barrera Work Phone: [facility] Work Phone: Payers Date Payer Category Payer Self-pay 2022 Medicare supplementa l policy (as second payer) [employer] [id number] 2015 Miscellaneous or Other A[employer] COMM ERCIAL [id number] 2015 Unknown [id number]. [id number] 2013 Private Health Insurance [facility] AARP SUPPLEMENT [id number] 2013-Present [phone] [address] [place] [address] Indemnity [id number] 2013 Unknown [id number] 2001 Medicare [id number] 2001 Medicare [id number] 2001 Medicare [id number]. [id number] 2001 Medicare [id number] 1.13.385. 2.7.3.541166.315 2001 Unknown 2001 Medicare [id number] 1936 Unknown [id number] 2.16840.1.950626.3.579. 2. 1936 Unknown [id number] 2.16840.1.140401.3.579. 2. 1936 Unknown [id number] 2.16840.1.692505.3.579. 2.900 1936 Unknown [id number] 2.840.1.393782.3.579. 2.1068 1936 Unknown [id number] 2.840.1.729866.3.579. 2.1068 1936 Unknown [id number] 2.840.1.118424.3.579. 2.1068 1936 Unknown [id number] 2.840.1.421819.3.579. 2.1068 1936 Unknown [id number] 2.840.1.576448.3.579. 2. 1936 Unknown [id number] 2.840.1.700414.3.579. 2. 1936 Unknown [id number] 2.840.1.458685.3.579. 2. 1936 Unknown [id number] 2.840.1.541009.3.579. 2. 1936 Unknown [id number] 2.840.1.979456.3.579. 2. 1936 Unknown [id number] 2.16840.1.749698.3.579. 2.1243 1936 Unknown [id number] 2.16840.1.340161.3.579. 2.1243 1936 Unknown [id number] 2.16.840.1.119676.3.579. 2.1243 1936 Unknown [id number] 2.16840.1.687800.3.579. 2.1243 1936 Unknown [id number] 2.16.840.1.917159.3.579. 2.1243 1936 Unknown [id number] 2.16840.1.503335.3.579. 2.1242 1936 Unknown [id number] 2.16840.1.947954.3.579. 2.1242 1936 Unknown [id number] 2.840.1.196265.3.579. 2.1242 1936 Unknown [id number] 2.840.1.992594.3.579. 2.1242 1936 Unknown [id number] 2.840.1.494328.3.579. 2.1242 1936 Unknown [id number] 2.840.1.658724.3.579. 2.1242 1936 Unknown [id number] 2.840.1.199112.3.579. 2.1244 1936 Unknown [id number] 2.840.1.480331.3.579. 2.1244 1936 Unknown [id number] 2.840.1.512791.3.579. 2.1244 1936 Unknown [id number] 2.16840.1.196910.3.579. 2.1244 1936 Unknown [id number] 2.16840.1.531914.3.579. 2.1244 1936 Unknown [id number] 2.16840.1.538140.3.579. 2.1244 1936 Unknown [id number] 2.16840.1.222137.3.579. 2.1245 Unknown [id number] Unknown [id number] Unknown [id number] [id number] Unknown [id number] [id number] Unknown [id number] 2.462 Unknown [id number] 2.462 Unknown [id number]. 2.462 Unknown [id number] 2.462 Unknown [id number] 2.462 Unknown [id number] 2.462 Social History Date Type Detail Facility Start: 04-22-2018 End: 05-19-2024 Tobacco smoking status NHIS Former smoker [facility] Start: 1935 Sex Assigned At Not on file O [facility] Start: 05-31-2016 Tobacco Comment quit 25+yrs ago [facility] Start: 07-14-2019 End: 04-10-2025 Alcohol intake Current non-drinker of alcohol (finding) [facility] Start: 08-19-2019 End: 05-19-2022 Tobacco Comment quit 25+yrs ago pipe [facility] Start: 02-05-2022 End: 11-20-2024 Exposure to SARS-CoV-2 (event) Not sure [facility] Start: 06-15-2020 End: 05-19-2024 Tobacco use and exposure Never used [facility] Start: 11-17-2022 End: 08-05-2025 Former smoker Former smoker [facility] Work Phone: End: 10-22-1962 History of tobacco use Current smoker [facility] End: 10-22-1962 History of tobacco use Cigarette Smoker [facility] Tobacco smoking consumption unknown [facility] Start: 11-17-2022 End: 08-05-2025 Tobacco use panel [facility] Start: 04-28-2019 Gender identity Identifies as male gender (finding) [facility] Start: 04-28-2019 Sexual orientation Heterosexual (fin gokul) [facility] Start: 11-18-2014 Tobacco smoking status NHIS Never smoked tobacco [facility] Start: 02-21-2023 End: 08-04-2025 Alcohol intake Ex-drinker (finding) [facility] Start: 1935 Sex Assigned At Male C [facility] Start: 09-15-2022 National Score (1-100), lower number is lower risk 80 [facility] History of tobacco use Pipe Smoker [facility] Work Phone: History of tobacco use Passive smoker [facility] Work Phone: (I/We) worried whether (my/our) food would run out before (I/we) got money to buy more. Never true [facility] Work Phone: In the past 12 months, was there a time when you were not able to pay the mortgage or rent on time? No [facility] Work Phone: Start: 09-15-2022 Sex Male (finding) [facility] NEGATED: Highlighted row - - [facility] Work Phone: Medical Equipment Procedure Code Equipment Code Equipment Origin al Text Equipment Identifier Dates EGD, with monitored anesthesia care Gastrostomy tube kit, medicated [id number] FDA Start: 05-26-2025 Cup 54mm Cluster Milian Trident Psl - [id number], [id number] FDA Start: 09-10-2019 Insert 36mm 10de g F Comp X3 Trident - [id number], [id number] FDA Start: 09-10-2019 Stem 127deg Sz6 Fem Accolade Ii - [id number], [id number] FDA Start: 09-10-2019 Head 36mm 5mm V4 0 Fem Lfit Anatomic - [id number] ()[id number], [id number] FDA Start: 09-10-2019 Humeral Insert 3 2 Mm Case [id number] Start: 04-12-2020 Comment on above: Description: Convert ed from [facility]. Please see archived information for full log information. Glenosphere, Concentric, 32mm, Mary Jo X 2mm Thk Case [id number] Start: 04-12-2020 Comment on above: Description: Convert ed from [facility]. Please see archived information for full log information. Clip, Aneurysm, Yasargil, Std, Perm, Fen, 9mm,150g, Ti Case [id number] Start: 04-12-2020 Comment on above: Description: Convert ed from [facility]. Please see archived information for full log information. Screw, Eripheral , 4.5mm X 24mm Case [id number] Start: 04-12-2020 Comment on above: Description: Convert ed from [facility]. Please see archived information for full log information. Screw, Eripheral , 4.5mm X 24mm Case [id number] Start: 04-12-2020 Comment on above: Description: Convert ed from [facility]. Please see archived information for full log information. Humeral Stem Padma e [id number] Start: 04-12-2020 Comment on above: Description: Convert ed from [facility]. Please see archived information for full log information. Screw, Periphera l, 4.5mm X 28mm Case [id number] Start: 04-12-2020 Comment on above: Description: Convert ed from [facility]. Please see archived information for full log information. Baseplate, Gleni od, 28mm Case [id number] Start: 04-12-2020 Comment on above: Description: Convert ed from [facility]. Please see archived information for full log information. Screw, Periphera l, 4.5mm X 16mm Case [id number] Start: 04-12-2020 Comment on above: Description: Convert ed from [facility]. Please see archived information for full log information. Cup, Humeral, 32 mm, Mary Jo X 4mm Thk Case [id number] Start: 04-12-2020 Comment on above: Description: Convert ed from [facility]. Please see archived information for full log information. Goals Date Patient Goal Desired Activity /State Functional Status Date Assessment Result Facility 08-05-2025 Functional status [facility] 08-05-2025 [facility] Work Phone: 08-04-2025 Total score [AUDIT-C] -1 025 11:54 PM EDT Elisabeth Chang, ANNA [facility] Work Phone: 08-04-2025 Patient Health Questionnaire 2 item (PHQ-2) [Reported] [facility] Work Phone: 08-04-2025 Functional status [facility] Work Phone: 08-04-2025 [facility] Work Phone: 08-04-2025 Functional status 1 [facility] Work Phone: 08-04-2025 [facility] Work Phone: 08-04-2025 [facility] Work Phone: 08-04-2025 Functional status [facility] Work Phone: 08-04-2025 [place] - suicide severity rating scale screener - recent [C-SSRS] [facility] Work Phone: 07-31-2025 Patient Health Questionnaire 2 item (PHQ-2) [Reported] [facility] Work Phone: 07-31-2025 Functional status 90/50 [facility] Work Phone: 07-31-2025 Vital signs 68 07/31/2025 1: 50 PM EDT Molly Alvarado MA [facility] Work Phone: 07-31-2025 [facility] Work Phone: 07-17-2025 Functional status 100/60 025 8:17 AM EDT Molly Alvarado MA 100/60 [facility] Work Phone: 07-17-2025 Vital signs 99 07/17/2025 8: 17 AM EDT Molly Alvarado MA [facility] Work Phone: 07-16-2025 Functional status Chair [facility] Work Phone: 06-17-2025 Functional status Bedrest [facility] Work Phone: 06-01-2025 Functional status Chair [facility] Work Phone: 05-27-2025 Functional status Chair [facility] Work Phone: 05-26-2025 Functional status Bedrest [facility] Work Phone: 05-10-2025 [place] - suicide severity rating scale screener - recent [C-SSRS] [facility] Work Phone: [facility] NEGATED: Highlighted row Functional performance Functional status health issues are not documented Disease [facility] Work Phone: Mental Status Date Assessment Result Facility 07-16-2025 Cognitive function Voice/Name [facility] Work Phone: 06-17-2025 Cognitive function Voice/Name [facility] Work Phone: 06-17-2025 Cognitive function Voice/Name [facility] Work Phone: 06-16-2025 Cognitive function Appropriate;[facility] Work Phone: 05-31-2025 Cognitive function Voice/Name [facility] Work Phone: 05-28-2025 Cognitive function Appropriate;C ooperativ e [facility] Work Phone: 05-26-2025 Cognitive function Sedated [facility] Work Phone: 05-26-2025 Cognitive function Patient Orien tation Person [facility] Work Phone: 05-24-2025 Cognitive function Appropriate;C ooperativ e [facility] Work Phone: [facility] Work Phone: NEGATED: Highlighted row Cognitive function [Interpretation] Cognitive status health issues are not documented Disease [facility] Work Phone: Clinical Notes 11-18-2014 to 08-09-2025 Kodi Nunes LPN - 08/09/2025 2:15 PM Carmencita Nunes LPN - 08/09/2025 2:15 PM Rodrick Gallo RN - 08/07/2025 10:30 AM Louis Garcia RN - 08/06/2025 8:55 AM EDT Note Date & Type Note Facility 08-09-2025 Nurse Note Patient discharged with transport to SNF. Ivs removed, discharge instructions complete. Patients belongings handed off to transport team. [facility] Work Phone: 08-09-2025 Nurse Note Patient discharged with transport to SNF. Ivs removed, discharge instructions complete. Patients belongings handed off to transport team. Ortho's completed Patient tolerated well and remained stable throughout the event. Respirations remained even and unlabored. Denies any pain or discomfort. Pt was transferred into chair per his request and family is at bedside. Lying B/P 137/71 MAP 93 HR 72 Sitting B/P 137/82 MAP 99 HR 84 Standing B/P 126/70 MAP 88 HR 99 Orthostatic Vitals Lying B/P- 163/82 HR- 66 O2- 94% Sitting B/P- 152/83 HR- 70 O2- 94% Standing B/P- 136/86 HR- 86 O2- 93% Orthostatic Vitals- post bolus Lying B/P- 146/70 HR- 59 O2- 97% Sitting B/P- 135/73 HR- 68 O2- 97% Standing B/P- 116/56 HR- 73 O2- 97% Orthostatic Vitals Lying B/P- 119/70 HR- 64 O2- 92% Sitting B/P- 91/53 HR- 70 O2-94% Standing B/P- 84/55 HR-83 O2- 90% documented in this encounter [facility] Work Phone: 08-09-2025 History of Present illness Narrative Fawn Campos is a 89 y.o. male on day 5 of admission presenting with Head injury, initial encounter. Patient medically ready for discharge today to [facility]F at 1200, transport provided by [facility]. RN provided report umber [phone]. Spoke with Diya () to confirm discharge plan Timur Klein [facility] TRAUMA SERVICE - PROGRESS NOTE Patient Name: Fawn Cameron Admit Date: [id number] : 1935 AGE: 89 y.o. GENDER: male ======== MECHANISM OF INJURY: 89 yo M s/p fall this am when getting out of bed. Pt. [place] weak and legs gave out when getting gup this am. Went to osh, CT head and cervical spine obtained. Injuries: right parafalcine SDH, resolution of previous right SAH. Transferred to [facility] for further trauma and NSGY eval. Recent admission to trauma service in April. 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 Patient was found to have right orbital [...] visits with ENT and ophthalmology upon discharge. Patient failed his speech evaluation because of aspiration, Dobbhoff is placed. Patient is tolerating tube feeds and is at goal. Discharged to SNF. LOC (yes/no?): No Anticoagulant / Anti-platelet Rx? (for what dx?): ?ASA Referring Facility Name (N/A for scene EMR run): [facility] ED INJURIES: right parafalcine SDH OTHER MEDICAL PROBLEMS: GERD HTN Osteoarthritis PADMA CAD Remote TIA Infrarenal AAA INCIDENTAL FINDINGS: Stable appearance of large infrarenal aortic aneurysm measuring up to 4.9 cm Multiple subacute to remote appearing fractures within the right hemipelvis, callused right rib fx ======== TODAY'S ASSESSMENT AND PLAN OF CARE: #right parafalcine SDH -repeat head ct stable -Neuro checks every 4 hours -Silvano tylenol for pain control, oxy dc'd, not requiring oxy -PT/OT -Keppra 7 days (stop 08/12) #recurrent falls -Geriatric consult -Falls precautions #Comorbids -resumed home Vit D, Lexapro, folic acid, Lopressor, PPI -Geriatrics consult: -GOC and code status discussion with family/patient, now DNR/DNI/No ICU -Nicolle hose, bolus 500 for +orthostatics today, repeat orthostatic in am -DC amitriptyline d/t side effects, hold afluozin home meds -Resume lisinopril 5mg today -Add saline flushes via peg FEN: -Added NS 150ml TID flushes for volume expansion per kaela recs - reports not requiring tube feeds. Diet has been advanced to easy to chew and [place] thick liquids. -MBS today, failed. GOC 08/06, continue easy to chew diet and nectar thick liquids accepting risk of aspiration -Home diet ordered -IS -Strict I/Os -BR -Monitor electrolytes as needed, replete as needed Proph: SCDs, LVX Dispo: Continue care on floor. PT/OT rec'd snf. Discharge tomorrow. Pt. And plan discussed with Dr. Jung. Elaine Madrigal APRN-[facility] Trauma Surgery [id number] Total face to face time spent with patient/family of 15 minutes, with >50% of the time spent discussing plan of care/management, counseling/educating on disease processes, explaining results of diagnostic testing. ======== CHIEF COMPLAINT / OVERNIGHT EVENTS: No acute events overnight. MEDICAL HISTORY / ROS: Admission history and ROS reviewed. Pertinent changes as follows: No complaints this am. PHYSICAL EXAM: Heart Rate: [63-83] Temp: [35.6 C (96.1 F)-37.4 C (99.3 F)] Resp: [16-18] BP: (111-161)/(59-79) SpO2: [92 %-95 %] Physical Exam Aox3. NAD.Awake laying in bed. Respirations even and unlabored. Thorax symmetric. Abd round, soft, nontender, nondistended. Normal rate. Peg tube in place. Strength 5/5 x4. No pitting edema. Glasses in place. LABS: Results from last 7 days Lab Units 08/06/25 1448 08/04/25 14508/04/25 0837 WBC AUTO x10*3/uL 7.3 6.8 6.9 HEMOGLOBIN g/dL 13.1* 12.4* 12.3* HEMATOCRIT % 42.2 37.1* 38.3* PLATELETS AUTO x10*3/uL 239 255 224 NEUTROS PCT AUTO % -- 73.1 75.3 LYMPHS PCT AUTO % -- 15.5 12.7 MONOS PCT AUTO % -- 9.1 8.8 EOS PCT AUTO % -- 1.3 2.2 Results from last 7 days Lab Units 08/06/25 1448 08/04/25 1451 08/04/25 0837 SODIUM mmol/L 137 143 142 POTASSIUM mmol/L 4.0 4.1 4.0 CHLORIDE mmol/L 102 105 107 CO2 mmol/L 26 30 28 BUN mg/dL 10 12 15 CREATININE mg/dL 0.72 0.77 0.84 CALCIUM mg/dL 8.9 9.1 8.9 PROTEIN TOTAL g/dL -- 5.9* -- BILIRUBIN TOTAL mg/dL -- 0.5 -- ALK PHOS U/L -- 94 -- ALT U/L -- 16 -- AST U/L -- 15 -- GLUCOSE mg/dL 105* 87 88 Results from last 7 days Lab Units 08/04/25 1451 BILIRUBIN TOTAL mg/dL 0.5 I have reviewed all medications, laboratory results, and imaging pertinent for today's encounter. Physical Therapy Physical Therapy Treatment Patient Name: Fawn Campos Department: [place] [id number] Room: [address] [place] [address] Today's Date: 08/07/2025 Time Calculation Start Time: 1102 Stop Time: 1152 Time Calculation (min): 50 min Assessment/Plan PT Assessment PT Assessment Results: Decreased strength, Decreased endurance, Impaired balance, Decreased mobility End of Session Communication: Bedside nurse Assessment Comment: Pt progressed ambulation to 150' using FWW with CGA. Pt initially required Mod A with STS but progressed to Min A when completing from chair with arms and bench in hallway but requires Mod A from toilet. Pt completed the Tinetti balance test scoring 13/28. Pt demos impaired balance and remains appropriate for Mod intensity therapy upon dc. End of Session Patient Position: Up in chair, Alarm off, caregiver present PT Plan Inpatient/Swing Bed or Outpatient: Inpatient PT Plan PT Plan: Ongoing PT PT Frequency for Current Admission: 5 times per week during this acute inpatient hospitalization PT Discharge Recommendations: Moderate intensity level of continued care Equipment Recommended upon Discharge: (TBD) PT Recommended Transfer Status: Assist x1, Assistive device PT - OK to Discharge: Yes PT Visit Info: PT Received On: 08/07/25 General Visit Information: General Family/Caregiver Present: Yes Caregiver Feedback: Pt's , daughter, and son in law present and supportive Prior to Session Communication: Bedside nurse Patient Position Received: Up in chair, Alarm off, caregiver present General Comment: Pt seated in chair upon arrival. Pt pleasant and agreeable to therapy. Subjective Precautions: Precautions Medical Precautions: Fall precautions (sinus precautions) Precautions Comment: SBP <160 Date/Time Vitals Session Patient Position Pulse Resp SpO2 BP MAP (mmHg) 08/07/25 1102 Pre PT Sitting -- -- -- 145/78 -- 08/07/25 1103 During PT Standing -- -- -- 98/64 -- 08/07/25 1152 -- -- 78 18 98 % 126/80 95 Vital Signs Comment: RN notified, pt asymptomatic Objective Pain: Pain Assessment Pain Assessment: 0-10 0-10 (Numeric) Pain Score: 0 - No pain Cognition: Cognition Overall Cognitive Status: Within Functional Limits Activity Tolerance: Activity Tolerance Endurance: Tolerates 10 - 20 min exercise with multiple rests Treatments: Therapeutic Activity Therapeutic Activity Performed: Yes Therapeutic Activity 1: Pt completed functional transfers from various surfaces (chair with arms, bench, toilet), and gait training Therapeutic Activity 2: Pt performed static standing for approx. 1-2 minutes using FWW with CGA for pericare. Balance/Neuromuscular Re-Education Balance/Neuromuscular Re-Education Activity Performed: Yes Balance/Neuromuscular Re-Education Activity 1: Pt completed the Tinetti balance test scoring 13/28 Ambulation/Gait Training Ambulation/Gait Training Performed: Yes Ambulation/Gait Training 1 Surface 1: Level tile Device 1: Rolling walker Assistance 1: Contact guard Quality of Gait 1: Narrow base of support, Decreased step length, Forward flexed posture, Diminished heel strike Comments/Distance (ft) 1: 45' x2 + 150' with seated rest between trials, pt tends to push FWW outside safe proximity and requirs cues to correct Transfers Transfer: Yes Transfer 1 Transfer From 1: Sit to, Stand to Transfer to 1: Stand, Sit Technique 1: Sit to stand, Stand to sit Transfer Device 1: Walker Transfer Level of Assistance 1: Minimum assistance, Moderate assistance Trials/Comments 1: initially Mod A from chair with arrms, progressed to Min A, cues for hand placement (x3 from chair with arms, x2 from bench in hallway) Transfers 2 Transfer From 2: Sit to, Toilet to Transfer to 2: Toilet, Stand Technique 2: Sit to stand, Stand to sit Transfer Device 2: Walker Transfer Level of Assistance 2: Moderate assistance Outcome Measures: [facility] Basic Mobility Turning from your back to your side while in a flat bed without using bedrails: A little Moving from lying on your back to sitting on the side of a flat bed without using bedrails: A lot Moving to and from bed to chair (including a wheelchair): A little Standing up from a chair using your arms (e.g. wheelchair or bedside chair): A little To walk in hospital room: A little Climbing 3-5 steps with railing: Total Basic Mobility - Total Score: 15 Tinetti Sitting Balance: Steady, safe Arises: Unable without help Attempts to Arise: Able, requires more than one attempt Immediate Standing Balance (First 5 Seconds): Steady but uses walker or other support Standing Balance: Steady but wide stance, uses cane or other support Nudged: Staggers, grabs, catches self Eyes Closed: Unsteady Turned 360 Degrees: Steadiness: Steady Turned 360 Degrees: Continuity of Steps: Discontinuous steps Sitting Down: Unsafe (Misjudges distance, falls into chair) Balance Score: 6 Initiation of Gait: No hesitancy Step Height: R Swing Foot: Right foot complete clears floor Step Length: R Swing Foot: Does not pass left stance foot with step Step Height: L Swing Foot: Left foot complete clears floor Step Length: L Swing Foot: Does not pass right stance foot with step Step Symmetry: Right and left step appear equal Step Continuity: Steps appear continuous Path: Mild/moderate deviation or uses walking aid Trunk: Marked sway or uses walking aid Walking Time: Heels almost touching while walking Gait Score: 7 Total Score: 13 Education Documentation Mobility Training, taught by Britt Sanders PTA at 08/07/2025 12:10 PM. Learner: Patient Readiness: Acceptance Method: Explanation Response: Verbalizes Understanding Comment: FWW management, hand placement with transfers. OP EDUCATION: Care Plan Goals: Encounter Problems Encounter Problems (Active) Balance Pt will score >24/28 on the Tinetti in order to improve balance. (Progressing) Start: 08/05/25 Expected End: 08/19/25 Mobility Pt will perform bed mobility with close supervision in order to demonstrate safety with mobility. (Progressing) Start: 08/05/25 Expected End: 08/19/25 Pt will ambulate at least 75ft with CGA and LRAD to demonstrate progression toward safe ambulation of household distances. (Progressing) Start: 08/05/25 Expected End: 08/19/25 Pt will ascend/descend at least 2 steps with Rajwinder and one hand held to demonstrate safety with stair navigation. (Progressing) Start: 08/05/25 Expected End: 08/19/25 PT Transfers Pt will perform sit<>stand and bed<>chair with CGA and LRAD to demonstrate safety with transfers. (Progressing) Start: 08/05/25 Expected End: 08/19/25 Cosigned by Beth Jung PT at 08/07/2025 12:30 PM EDT Associated attestation - Beth Jung, PT - 08/07/2025 12:30 PM EDT Pt scored 13/28 on Tinetti indicating High risk of falls [facility] TRAUMA SERVICE - PROGRESS NOTE Patient Name: Fawn Cameron Admit Date: [id number] : 1935 AGE: 89 y.o. GENDER: male ======== MECHANISM OF INJURY: 89 yo M s/p fall this am when getting out of bed. Pt. [place] weak and legs gave out when getting gup this am. Went to osh, CT head and cervical spine obtained. Injuries: right parafalcine SDH, resolution of previous right SAH. Transferred to [facility] for further trauma and NSGY eval. Recent admission to trauma service in April. 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 Patient was found to have right orbital [...] visits with ENT and ophthalmology upon discharge. Patient failed his speech evaluation because of aspiration, Dobbhoff is placed. Patient is tolerating tube feeds and is at goal. Discharged to SNF. LOC (yes/no?): No Anticoagulant / Anti-platelet Rx? (for what dx?): ?ASA Referring Facility Name (N/A for scene EMR run): [facility] ED INJURIES: right parafalcine SDH OTHER MEDICAL PROBLEMS: GERD HTN Osteoarthritis PADMA CAD Remote TIA Infrarenal AAA INCIDENTAL FINDINGS: Stable appearance of large infrarenal aortic aneurysm measuring up to 4.9 cm Multiple subacute to remote appearing fractures within the right hemipelvis, callused right rib fx ======== TODAY'S ASSESSMENT AND PLAN OF CARE: #right parafalcine SDH -repeat head ct stable -Neuro checks every 4 hours -Silvano tylenol for pain control, oxy dc'd, not requiring oxy -PT/OT -Keppra 7 days (stop 08/12) #recurrent falls -Geriatric consult -Falls precautions #Comorbids -resumed home Vit D, Lexapro, folic acid, Lopressor, PPI -Geriatrics consult: -GOC and code status discussion with family/patient, now DNR/DNI/No ICU -Nicolle hose, bolus 500 for +orthostatics today, repeat orthostatic in am -DC amitriptyline d/t side effects, hold afluozin home meds -Resume lisinopril 5mg today -Add saline flushes via peg FEN: -Added NS 150ml TID flushes for volume expansion per kaela recs - reports not requiring tube feeds. Diet has been advanced to easy to chew and [place] thick liquids. -MBS today, failed. GOC 08/06, continue easy to chew diet and nectar thick liquids accepting risk of aspiration -Home diet ordered -IS -Strict I/Os -BR -Monitor electrolytes as needed, replete as needed Proph: SCDs, LVX Dispo: Continue care on floor. PT/OT rec'd snf. Pt. And plan discussed with Dr. Jung. Elaine Madrigal, WH[employer] W[employer]ER-BARN [employer] Trauma Surgery [id number] Total face to face time spent with patient/family of 20 minutes, with >50% of the time spent discussing plan of care/management, counseling/educating on disease processes, explaining results of diagnostic testing. ======== CHIEF COMPLAINT / OVERNIGHT EVENTS: Overnight sbp 170s, hydral 5mg IVP once given, sbp improved. MEDICAL HISTORY / ROS: Admission history and ROS reviewed. Pertinent changes as follows: No complaints. PHYSICAL EXAM: Heart Rate: [57-99] Temp: [36.3 C (97.3 F)-37 C (98.6 F)] Resp: [17-18] BP: (98-177)/(62-82) Height: [167.6 cm (5' 6)] Weight: [65.3 kg (143 lb 15.4 oz)] SpO2: [95 %-98 %] Physical Exam Aox3. NAD.Awake laying in bed. Respirations even and unlabored. Thorax symmetric. Abd round, soft, nontender, nondistended. Normal rate. Peg tube in place. Strength 5/5 x4. No pitting edema. LABS: Results from last 7 days Lab Units 08/06/25 1448 08/04/25 1451 08/04/25 0837 WBC AUTO x10*3/uL 7.3 6.8 6.9 HEMOGLOBIN g/dL 13.1* 12.4* 12.3* HEMATOCRIT % 42.2 37.1* 38.3* PLATELETS AUTO x10*3/uL 239 255 224 NEUTROS PCT AUTO % -- 73.1 75.3 LYMPHS PCT AUTO % -- 15.5 12.7 MONOS PCT AUTO % -- 9.1 8.8 EOS PCT AUTO % -- 1.3 2.2 Results from last 7 days Lab Units 08/06/25 1448 08/04/25 1451 08/04/25 0837 SODIUM mmol/L 137 143 142 POTASSIUM mmol/L 4.0 4.1 4.0 CHLORIDE mmol/L 102 105 107 CO2 mmol/L 26 30 28 BUN mg/dL 10 12 15 CREATININE mg/dL 0.72 0.77 0.84 CALCIUM mg/dL 8.9 9.1 8.9 PROTEIN TOTAL g/dL -- 5.9* -- BILIRUBIN TOTAL mg/dL -- 0.5 -- ALK PHOS U/L -- 94 -- ALT U/L -- 16 -- AST U/L -- 15 -- GLUCOSE mg/dL 105* 87 88 Results from last 7 days Lab Units 08/04/25 1451 BILIRUBIN TOTAL mg/dL 0.5 I have reviewed all medications, laboratory results, and imaging pertinent for today's encounter. [employer] Note: Patient discussed with medical team (trauma resident), per trauma team patient is not medically ready. Pending orthostatics, plan for repeat. Discharge dispo: Plan for patient to discharge to [facility] when medically ready. TCC sent updates to facility. ADOD: Sunday. TCC met with patient introduced self and role to discuss discharge plan. Patient expressed understanding and appreciation of information and is agreeable to discharge plan. IMM provided to patient. Patient requested to review IMM with his prior to discharge. Trauma team updated to complete arredondo joon. Transport set for Sunday08/09/2025 at 12pm with physicians ambulance. Ilsa WHITEN [employer] UPDATE 08/07/2025 IMM signed and placed in chart, copy provided to patient and family. TCC met with patient and patient's at bedside to provide update on discharge plan. Patient and family expressed understanding and appreciation of information and is agreeable to discharge plan. Bedside nurse and distance learning unit leader updated. Ilsa WHITEN [employer]itional [employer] Subjective BERNADETTE OVN Yesterday received another 500 ml bolus for orthostasis Overnight received hydral 5 mg IV 0230 for BP in the 170s Today, pt is upset that no nurse has come in his room this morning. Wants to order breakfast Concerned about how high BP was overnight. Did have mild headache but gone this AM. Mild hip pain improved with tylenol. Good BM yesterday, urinated well. No dizziness Wants to know when he is going home Vitals afebrile HR 60s BP 150s-170s/90s satting well on RA I/O 550 UOP and 2 stool No PRNs Labs RFP stable, CBC mild anemia to 13.1 B12 1043 Vit D 44 Objective Current Medications[1] Physical Exam Gen: NAD, alert and oriented, resting comfortably HEENT: PERRL, EOMI, no oral lesions, MMM Neck: supple, no masses Abd: soft, nontender to palpation, no HSM, normal bowel sounds, Peg in place MSK: Strength and ROM grossly intact b/l Neuro: CN 2-12 intact b/l, sensation to light touch intact Skin: No rash or bruising Lymph: No edema Vascular: Radial and pedal pulses 2+ b/l Psych: Normal mood and affect Confusion Assessment Method(CAM) for diagnosis of delirium: [...] if (4) information incomplete) Last Recorded Vitals 08/06/2025 12:42 PM 08/06/2025 2:42 PM 08/06/2025 4:45 PM 08/06/2025 9:12 PM 08/07/2025 12:00 AM 08/07/2025 3:48 AM 08/07/2025 7:04 AM Vitals Systolic 103 100 176 177 159 160 Diastolic 65 62 81 77 69 79 BP Location Left arm Left arm Left arm Right arm Heart Rate 57 69 65 63 66 65 Temp 36.3 C (97.3 F) 36.4 C (97.6 F) 36.7 C (98.1 F) 37 C (98.6 F) Resp 17 18 18 18 Height 1.676 m (5' 6) Weight (lb) 143.96 BMI 23.24 kg/m2 BSA (m2) 1.74 m2 Vitals: 08/06/25 1442 Weight: 65.3 kg (143 lb 15.4 oz) Relevant Results Lab Results Component Value Date TSH 4.88 (H) 05/12/2025 [id number] 1,043 (H) 08/06/2025 VITD25 44 08/06/2025 Results from last 7 days Lab Units 08/06/25 1448 08/04/25 1451 08/04/25 0837 WBC AUTO x10*3/uL 7.3 6.8 6.9 HEMOGLOBIN g/dL 13.1* 12.4* 12.3* HEMATOCRIT % 42.2 37.1* 38.3* ALT U/L -- 16 -- AST U/L -- 15 -- SODIUM mmol/L 137 143 142 POTASSIUM mmol/L 4.0 4.1 4.0 CHLORIDE mmol/L 102 105 107 CREATININE mg/dL 0.72 0.77 0.84 BUN mg/dL 10 12 15 CO2 mmol/L 26 30 28 DATA: EKG: QTC Encounter Date: 08/04/25 ECG 12 lead Result Value Ventricular Rate 69 Atrial Rate 69 MO Interval 166 QRS Duration 92 QT Interval 404 QTC Calculation(Bazett) 432 P [place] 104 R [place] 11 T [place] 26 QRS Count 11 Q Onset 224 P Onset 141 P Offset 181 T Offset 426 QTC Fredericia 423 Narrative Normal sinus rhythm Poor R-wave progression ; consider anterior infarct, lead placement, or normal variant Abnormal ECG When compared with ECG of 30-JUL-2025 15:00, (unconfirmed) Right bundle branch block is no longer Present Anti-psychotics in 48 hours: None Opioids/Benzodiazepines in 48 hours: None Anticholinergics on board:No Restraints:No Indwelling catheters:No Last BM: yesterday UO in 24 hours: 500 Activity in the past 24 hours: up with PT Need for ambulatory devices: walker Assessment/Plan Fawn Campos is a 89 y.o. 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 Pt overall doing well today, Mentating appropriately and no neuro deficits. Remains orthostatic but improving. Recommend PEG fluid boluses given limited fluid intake abilities with nectar thick diet. Principal Problem: Head injury, initial encounter 1. Acute fall with SDH -differential includes orthostasis vs vs urinary urgency vs polypharmacy Plan: Continue fluid resuscitation for orthostasis as below hold BP meds and TCA outpt DEXA recommended given hx of being on alendronate but no prior DEXA Vit D and B12 levels WNL 2. Orthostatic hypotension, asymptomatic -Pt with >20 mmHg drop in BP from lying to standing -This is a dilemma as pt orthostatic but also with SDH so need to target BP range 140s-150s which is satisfactory for a geriatric pt for adequate perfusing but avoid BP in the 160s systolic per NSGY recs given SDH Plan: Recommend resume Benazepril but at lower dose of 5 mg if BP consistently above 160s systolic Recommend NICOLLE hose compression stockings Please give 150 ml NS bolus via PEG tube TID to augment volume expansion as pt limited to do this PO given nectar thickened diet Continue to hold afluzosin, ok for Metoprolol as limited effect on BP 3. Polypharmacy - on several home peripheral vasodilators that can cause orthostasis and hypotension (alfuzosin, benazepril, metoprolol) - Appears pt hypertension overtreated as ambulatory BP in 90s/100s systolic - amitryptyline and alfuzosin are anticholinergic and can cause sedation/ weakness/ hypotension - Please hold alfuzosin, benazepril and amitryptyline and do not resume on dispo 4. Nocturia 2/2 BPH -Saw urology 08/2023 for BPH, started on Alfuzosin andf timed voiding. Was on flomax prior but did not help per Plan: once orthostasis improves will discuss resumption of alpha juan - Tamsulosin appears to have least affect on systemic BP compared to Alfuzosin Monitor for urinary retention (bladder scan if no void 8 hr) Recommend consider Tamsulosin for alpha agonist effect if needed for urinary retention at SNF on dispo as less alpha effect than afluzosin 5. Dysphagia -Originally failed 05/14 swallow study, discharged with dobhoff, continued dyaphagia at SNF but improving on nectar thick liquids at home -Repeat swallow 08/06 showing concern for aspiration, speech rec NPO for all PO. Discussed with pt risk/benefits and accepts risk of aspiration as POing is pleasurable. Goals of care discussion done and code status updated to DNR/DNI/no ICU (see ACP note) Plan: Return to prior home diet given quality of life paramount to pt, advise upright for all meals to minimize aspiration risk Malnutrition Diagnosis Status: New Malnutrition Diagnosis: Moderate malnutrition related to acute disease or injury Related to: multiple recent falls As Evidenced by: areas of subcutaneous fat loss and muscle wasting I agree with the dietitian's malnutrition diagnosis. 4M AGE-FRIENDLY INITIATIVE: What matters most to patient: feeling like someone is caring for him Medications: off oxycodone Mentation: A/O x 4 at baseline Mobility: walker Geriatric medicine will continue to follow the patient. Thank you for allowing geriatric medicine to be involved in the care of your patient. Geriatric medicine consultation team is available during work hours Sunday through Sunday. For any emergency issues requiring immediate assistance over the weekend, please page Geriatrics pager [phone] Selam Jerry MD [1] Current Facility-Administered Medications Medication Dose Route Frequency Provider Last Rate Last Admin acetaminophen (Tylenol) tablet 975 mg 975 mg oral q8h Gauri Ortiz PA-C 975 mg at 08/07/25 0647 [Held by provider] aspirin EC tablet 81 mg 81 mg oral Daily Gauri Ortiz PA-C cholecalciferol (Vitamin D-3) tablet 125 mcg 125 mcg oral Daily Gauri Ortiz PA-C 125 mcg at 08/06/25 0859 enoxaparin (Lovenox) syringe 30 mg 30 mg subcutaneous q12h Elaine MadrigalJALEELBARN HAND 30 mg at 08/07/25 0647 escitalopram (Lexapro) tablet 5 mg 5 mg oral Daily Gauri Ortiz PA-C 5 mg at 08/06/25 0859 folic acid (Folvite) tablet 1 mg 1 mg oral Daily Gauri Ortiz PA-C 1 mg at 08/06/25 0859 levETIRAcetam (Keppra) tablet 500 mg 500 mg oral BID Elaine Mendoza JALEEL MadrigalBARN HAND 500 mg at 08/06/252 metoprolol tartrate (Lopressor) tablet 25 mg 25 mg oral BID Elaine Mendoza GINA Madrigal 25 mg at 08/06/252111 oxygen (O2) therapy 1 Dose inhalation Continuous - O2/gases Gauri Ortiz PA-C pantoprazole (ProtoNix) EC tablet 40 mg 40 mg oral Nightly Gauri Ortiz PA-C 40 mg at 08/06/252111 polyethylene glycol (Glycolax, Miralax) packet 17 g 17 g oral Daily Gauri Ortiz PA-C 17 g at 08/06/25 0858 sennosides-docusate sodium (Griselda-Colace) 8.6-50 mg per tablet 2 tablet 2 tablet oral BID Gauri Ortiz PA-C 2 tablet at 08/06/25 0859 Cosigned by Zahira Douglas MD at 08/08/2025 2:10 AM EDT Associated attestation - Zahira Douglas MD - 08/08/2025 2:10 AM EDT I saw and evaluated the patient. I personally obtained the de jesus and critical portions of the history and physical exam or was physically present for de jesus and critical portions performed by the resident. I reviewed the resident's documentation and discussed the patient with the resident. I agree with the resident's medical decision making as documented in the note. [facility] TRAUMA SERVICE - PROGRESS NOTE Patient Name: Fawn Cameron Admit Date: [id number] : 1935 AGE: 89 y.o. GENDER: male ======== MECHANISM OF INJURY: 89 yo M s/p fall this am when getting out of bed. Pt. [place] weak and legs gave out when getting gup this am. Went to osh, CT head and cervical spine obtained. Injuries: right parafalcine SDH, resolution of previous right SAH. Transferred to [facility] for further trauma and NSGY eval. Recent admission to trauma service in April. 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 Patient was found to have right orbital [...] visits with ENT and ophthalmology upon discharge. Patient failed his speech evaluation because of aspiration, Dobbhoff is placed. Patient is tolerating tube feeds and is at goal. Discharged to SNF. LOC (yes/no?): No Anticoagulant / Anti-platelet Rx? (for what dx?): ?ASA Referring Facility Name (N/A for scene EMR run): [facility] ED INJURIES: right parafalcine SDH OTHER MEDICAL PROBLEMS: GERD HTN Osteoarthritis PADMA CAD Remote TIA Infrarenal AAA INCIDENTAL FINDINGS: Stable appearance of large infrarenal aortic aneurysm measuring up to 4.9 cm Multiple subacute to remote appearing fractures within the right hemipelvis, callused right rib fx ======== TODAY'S ASSESSMENT AND PLAN OF CARE: #right parafalcine SDH -repeat head ct stable -Neuro checks every 4 hours -Silvano tylenol for pain control, oxy dc'd, not requiring oxy -PT/OT -Keppra 7 days #recurrent falls -Geriatric consult -Falls precautions #Comorbids -resumed home Vit D, Lexapro, folic acid, Lopressor, PPI -Geriatrics consult: -GOC and code status discussion with family/patient, now DNR/DNI/No ICU -Nicolle hose, bolus 500 for +orthostatics today, repeat orthostatic in am -DC amitriptyline d/t side effects, hold TRAVIS and afluozin home meds FEN: - reports not requiring tube feeds. Diet has been advanced to easy to chew and [place] thick liquids. -MBS today, failed. GOC today, continue easy to chew diet and nectar thick liquids accepting risk of aspiration -Home diet ordered -IS -Strict I/Os -BR -Monitor electrolytes as needed, replete as needed Proph: SCDs, hold chemoprophylaxis for 48 hours after stable head bleed, can start tomorrow. Dispo: Continue care on floor. PT/OT rec'd snf. Pt. And plan discussed with Dr. Jung. Elaine Madrigal, [employer] Trauma Surgery [id number] Total face to face time spent with patient/family of 20 minutes, with >50% of the time spent discussing plan of care/management, counseling/educating on disease processes, explaining results of diagnostic testing. ======== CHIEF COMPLAINT / OVERNIGHT EVENTS: No acute events overnight. MEDICAL HISTORY / ROS: Admission history and ROS reviewed. Pertinent changes as follows: No complaints. PHYSICAL EXAM: Heart Rate: [57-80] Temp: [36.3 C (97.3 F)-36.8 C (98.3 F)] Resp: [17-18] BP: (100-176)/(50-82) Height: [167.6 cm (5' 6)] Weight: [65.3 kg (143 lb 15.4 oz)] SpO2: [91 %-96 %] Physical Exam Aox3. NAD.Awake laying in bed. Respirations even and unlabored. Thorax symmetric. Abd round, soft, nontender, nondistended. Normal rate. Peg tube in place. Strength 5/5 x4. No pitting edema. LABS: Results from last 7 days Lab Units 08/06/25 1448 08/04/25 14508/04/25 0837 WBC AUTO x10*3/uL 7.3 6.8 6.9 HEMOGLOBIN g/dL 13.1* 12.4* 12.3* HEMATOCRIT % 42.2 37.1* 38.3* PLATELETS AUTO x10*3/uL 239 255 224 NEUTROS PCT AUTO % -- 73.1 75.3 LYMPHS PCT AUTO % -- 15.5 12.7 MONOS PCT AUTO % -- 9.1 8.8 EOS PCT AUTO % -- 1.3 2.2 Results from last 7 days Lab Units 08/06/25 1448 08/04/25 1451 08/04/25 0837 SODIUM mmol/L 137 143 142 POTASSIUM mmol/L 4.0 4.1 4.0 CHLORIDE mmol/L 102 105 107 CO2 mmol/L 26 30 28 BUN mg/dL 10 12 15 CREATININE mg/dL 0.72 0.77 0.84 CALCIUM mg/dL 8.9 9.1 8.9 PROTEIN TOTAL g/dL -- 5.9* -- BILIRUBIN TOTAL mg/dL -- 0.5 -- ALK PHOS U/L -- 94 -- ALT U/L -- 16 -- AST U/L -- 15 -- GLUCOSE mg/dL 105* 87 88 Results from last 7 days Lab Units 08/04/25 1451 BILIRUBIN TOTAL mg/dL 0.5 I have reviewed all medications, laboratory results, and imaging pertinent for today's encounter. Physical Therapy Physical Therapy Treatment Patient Name: Fawn Campos Department: [place] [id number] Room: [address] [place] [address] Today's Date: 08/06/2025 Time Calculation Start Time: 1029 Stop Time: 1053 Time Calculation (min): 24 min Assessment/Plan PT Assessment Barriers to Discharge Home: Caregiver assistance, Physical needs Caregiver Assistance: Caregiver assistance needed per identified barriers - however, level of patient's required assistance exceeds assistance available at home Physical Needs: Stair navigation into home limited by function/safety, Ambulating household distances limited by function/safety, 24hr mobility assistance needed, 24hr ADL assistance needed, High falls risk due to function or environment End of Session Communication: Bedside nurse Assessment Comment: Pt tolerated PT session well, able to complete increased OOB activity and multiple transfers from various surfaces with Mod-Rajwinder. Pt continues to remain appropriate for Moderate intensity PT upon D/C from hospital. End of Session Patient Position: Up in chair, Alarm on PT Plan Inpatient/Swing Bed or Outpatient: Inpatient PT Plan PT Plan: Ongoing PT PT Frequency for Current Admission: 5 times per week during this acute inpatient hospitalization PT Discharge Recommendations: Moderate intensity level of continued care Equipment Recommended upon Discharge: (TBD) PT Recommended Transfer Status: Assist x1, Assistive device PT - OK to Discharge: Yes PT Visit Info: PT Received On: 08/06/25 General Visit Information: General Family/Caregiver Present: Yes Caregiver Feedback: Family present at end of session Prior to Session Communication: Bedside nurse Patient Position Received: Bed, 3 rail up, Alarm on General Comment: Pt supine in bed, expressed frustration over barium swallow test but agreeabl to work with PT. Subjective Precautions: Precautions Medical Precautions: Fall precautions (Sinus precautions.) Precautions Comment: SBP <160 Objective Pain: Pain Assessment Pain Assessment: 0-10 0-10 (Numeric) Pain Score: 0 - No pain Cognition: Cognition Overall Cognitive Status: Within Functional Limits Orientation Level: Oriented X4 Activity Tolerance: Activity Tolerance Endurance: Tolerates 10 - 20 min exercise with multiple rests Treatments: Therapeutic Activity Therapeutic Activity Performed: Yes Therapeutic Activity 1: Pt tolerated dynamic standing with CGA-Rajwinder with at least 0-1 UE support while performing hygiene care in bathroom. Bed Mobility Bed Mobility: Yes Bed Mobility 1 Bed Mobility 1: Supine to sitting Level of Assistance 1: Moderate assistance, Minimal verbal cues Bed Mobility Comments 1: Assist at trunk Ambulation/Gait Training Ambulation/Gait Training Performed: Yes Ambulation/Gait Training 1 Surface 1: Level tile Device 1: Rolling walker Assistance 1: Minimum assistance, Minimal verbal cues Quality of Gait 1: Narrow base of support, Shuffling gait, Decreased step length, Forward flexed posture (Decreased chiquita) Comments/Distance (ft) 1: x15ft, x10ft cues for safe sequencing, and negotiation of bathroom threshold. Transfers Transfer: Yes Transfer 1 Transfer From 1: Bed to Transfer to 1: Stand Technique 1: Sit to stand Transfer Device 1: Walker Transfer Level of Assistance 1: Moderate assistance, Minimal verbal cues Trials/Comments 1: Elevated bed height, cues for safe sequencing. Transfers 2 Transfer From 2: Toilet to Transfer to 2: Stand Technique 2: Sit to stand, Stand to sit Transfer Device 2: Walker Transfer Level of Assistance 2: Moderate assistance, Minimal verbal cues Trials/Comments 2: Cues for sequencing, attempt at use of grabbar when descending. Transfers 3 Transfer From 3: Chair with arms to Transfer to 3: Stand Technique 3: Sit to stand, Stand to sit Transfer Device 3: Walker Transfer Level of Assistance 3: Minimum assistance, Minimal verbal cues Trials/Comments 3: x5 trials, cues for safe sequencing, use of B armrests to complete Stairs Stairs: No Outcome Measures: [facility] Basic Mobility Turning from your back to [...] lot To walk in hospital room: A little Climbing 3-5 steps with railing: Total Basic Mobility - Total Score: 12 Education Documentation Precautions, taught by Brynn Lincoln PTA at 08/06/2025 1:05 PM. Learner: Patient Readiness: Acceptance Method: Explanation Response: Verbalizes Understanding, Needs Reinforcement Comment: Safe transfers, safe ambulation, Body Mechanics, taught by Brynn Lincoln PTA at 08/06/2025 1:05 PM. Learner: Patient Readiness: Acceptance Method: Explanation Response: Verbalizes Understanding, Needs Reinforcement Comment: Safe transfers, safe ambulation, Mobility Training, taught by Brynn Lincoln PTA at 08/06/2025 1:05 PM. Learner: Patient Readiness: Acceptance Method: Explanation Response: Verbalizes Understanding, Needs Reinforcement Comment: Safe transfers, safe ambulation, Care Plan Goals: Encounter Problems Encounter Problems (Active) Balance Pt will score >24/28 on the [place] in order to improve balance. (Progressing) Start: 08/05/25 Expected End: 08/19/25 Mobility Pt will perform bed mobility with close supervision in order to demonstrate safety with mobility. (Progressing) Start: 08/05/25 Expected End: 08/19/25 Pt will ambulate at least 75ft with CGA and LRAD to demonstrate progression toward safe ambulation of household distances. (Progressing) Start: 08/05/25 Expected End: 08/19/25 Pt will ascend/descend at least 2 steps with Rajwinder and one hand held to demonstrate safety with stair navigation. (Not Progressing) Start: 08/05/25 Expected End: 08/19/25 PT Transfers Pt will perform sit<>stand and bed<>chair with CGA and LRAD to demonstrate safety with transfers. (Progressing) Start: 08/05/25 Expected End: 08/19/25 08/06/25 at 1:07 PM Brynn Lincoln PTA Rehab Office: [phone] Cosigned by Beth Jung PT at 08/06/2025 1:47 PM EDT Trans[employer] Note: Patient discussed with medical team (trauma INSURANCE COUNSEL), per trauma team patient is not medically ready. Pending orthostatics. Discharge dispo: Plan for patient to discharge to SNF. Patient remains under review with [facility]. [facility] sent updated clinicals to facility and inquired if facility is able to accept, pending response. Patient will not require pre-cert prior to discharge. Ilsa Carr FUSING MACHINE OPERATOR Transitional [employer]ist [employer] Physical Therapy Therapy Communication Note Patient Name: Fawn Campos Department: [facility] Room: [facility][note 3][id number] Today's Date: 08/06/2025 Discipline: Physical Therapy Missed Visit: PT Missed Visit: Yes Missed Visit Reason: Missed Visit Reason: Other (Comment) (Pt off unit at Barium Swallow Test, will re-attempt as time permits.) Missed Time: Attempt 08/06/25 at 8:06 AM Brynn Lincoln PTA Rehab Office: [phone] Cosigned by Beth Jung PT at 08/06/2025 9:50 AM EDT Subjective Yesterday afternoon remained orthostatic and given another 500 ml bolus Systolic lying was 146, sitting 135 and standing 116 [employer] swallow study ordered this AM Pt says he is worried about the swallow study results. Says he is thinking he still wants to eat PO and accept risk of aspiration but wants to discuss with family later this morning Sitting on bed lew this morning. No pain. Otherwise feels well. Not dizzy or lightheaded. Repeat orthostatic vitals showing pt is still orthostatic Vitals - afebrile HR 60s-70s BP 130s-160s/50s-80s satting >91% on RA I/O-In 400 out 800 ml no stool overnight but 2 this morning Bowel ref No PRN pain meds on sched tylenol Objective Vitals: 08/06/25 0317 BP: 156/50 Pulse: 62 Resp: 17 Temp: 36.3 C (97.3 F) SpO2: 91% Current Medications[1] Physical Exam Gen: NAD, alert and oriented, resting comfortably HEENT: PERRL, EOMI, no oral lesions, MMM Neck: supple, no masses Cardiac: RRR. No murmurs Resp: CTA b/l, no rales or ronchi Abd: soft, nontender to palpation, no HSM, normal bowel sounds, Peg in place MSK: Strength and ROM grossly intact b/l Neuro: CN 2-12 intact b/l, sensation to light touch intact Skin: No rash or bruising Lymph: No edema, SCD in place Vascular: Radial and pedal pulses 2+ b/l Psych: Normal mood and affect Confusion Assessment Method(CAM) for diagnosis of delirium: [...] if (4) information incomplete) Last Recorded Vitals 08/05/2025 9:40 AM 08/05/2025 11:03 AM 08/05/2025 11:45 AM 08/05/2025 6:37 PM 08/05/2025 8:29 PM 08/06/2025 12:01 AM 08/06/2025 3:17 AM Vitals Systolic 131 102 176 162 133 156 Diastolic 69 64 82 81 78 50 BP Location Right arm Left arm Left arm Left arm Left arm Left arm Left arm Heart Rate 71 64 80 69 75 62 Temp 36.6 C (97.9 F) 36.1 C (97 F) 36.3 C (97.3 F) 36.8 C (98.3 F) 36.3 C (97.4 F) 36.3 C (97.3 F) Resp 17 17 17 17 17 17 Vitals: 08/04/25 1434 Weight: 65.3 kg (144 lb) Relevant Results Lab Results Component Value Date TSH 4.88 (H) 05/12/2025 [id number] 283 05/12/2025 VITD25 18 (L) 05/12/2025 Results from last 7 days Lab Units 08/04/25 1451 08/04/25 0837 WBC AUTO x10*3/uL 6.8 6.9 HEMOGLOBIN g/dL 12.4* 12.3* HEMATOCRIT % 37.1* 38.3* ALT U/L 16 -- AST U/L 15 -- SODIUM mmol/L 143 142 POTASSIUM mmol/L 4.1 4.0 CHLORIDE mmol/L 105 107 CREATININE mg/dL 0.77 0.84 BUN mg/dL 12 15 CO2 mmol/L 30 28 DATA: EKG: QTC Encounter Date: 08/04/25 ECG 12 lead Result Value Ventricular Rate 69 Atrial Rate 69 MO Interval 166 QRS Duration 92 QT Interval 404 QTC Calculation(Bazett) 432 P [place] 104 R [place] 11 T [place] 26 QRS Count 11 Q Onset 224 P Onset 141 P Offset 181 T Offset 426 QTC Fredericia 423 Narrative Normal sinus rhythm Poor R-wave progression ; consider anterior infarct, lead placement, or normal variant Abnormal ECG When compared with ECG of 30-JUL-2025 15:00, (unconfirmed) Right bundle branch block is no longer Present Anti-psychotics in 48 hours: None Opioids/Benzodiazepines in 48 hours: None Anticholinergics on board:No Elavil discontinued Restraints:No Indwelling catheters:No Last BM: prior to admission UO in 24 hours: 800 ml Activity in the past 24 hours: up with PT Need for ambulatory devices: walker Assessment/Plan Fawn Campos is a 89 y.o. 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 Pt overall doing well today, Mentating appropriately and no neuro deficits. Remains orthostatic but improving. Discussed [employer] results and pt accepts risk of aspiration and would like to now be DNI and no ICU (see ACP note) Principal Problem: Head injury, initial encounter 1. Acute fall with SDH w/ positive orthostatic vitals -differential includes orthostasis vs vs urinary urgency vs polypharmacy Plan: Continue fluid resuscitation, recommend ordering compression stockings and encourage sodium intake to maintain intravascular volume hold BP meds and TCA outpt DEXA recommended given hx of being on alendronate but no prior DEXA Vit D and B12 levels check and replete pending value 2. Polypharmacy - on several home peripheral vasodilators that can cause orthostasis and hypotension (alfuzosin, benazepril, metoprolol) -Appears pt hypertension overtreated as ambulatory BP in 90s/100s systolic - amitryptyline and alfuzosin are anticholinergic and can cause sedation/ weakness/ hypotension - Please hold alfuzosin, metoprolol, benazepril and amitryptyline and do not resume on dispo 3. Nocturia / BPH -Saw urology 08/2023 for BPH, started on Alfuzosin andf timed voiding. Was on flomax prior but did not help per Plan: once orthostasis improves will discuss resumption of alpha juan - Tamsulosin appears to have least affect on systemic BP compared to Alfuzosin Monitor for urinary retention (bladder scan if no void 8 hr) 4. Dysphagia -Originally failed 05/14 swallow study, discharged with dobhoff, continued dyaphagia at SNF but improving on nectar thick liquids at home -Repeat swallow 08/06 showing concern for aspiration, speech rec NPO for all PO. Discussed with pt risk/benefits and accepts risk of aspiration as POing is pleasurable. 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 Thank you for allowing geriatric medicine to be involved in the care of your patient. Geriatric medicine consultation team is available during work hours Sunday through Sunday. For any emergency issues requiring immediate assistance over the weekend, please page Geriatrics pager [phone] Selam Jerry MD [1] Current Facility-Administered Medications Medication Dose Route Frequency Provider Last Rate Last Admin acetaminophen (Tylenol) tablet 975 mg 975 mg oral q8h Gauri Ortiz PA-C 975 mg at 08/05/252137 [Held by provider] aspirin EC tablet 81 mg 81 mg oral Daily Gauri Ortiz PA-C cholecalciferol (Vitamin D-3) tablet 125 mcg 125 mcg oral Daily Gauri Ortiz PA-C 125 mcg at 08/05/25920 escitalopram (Lexapro) tablet 5 mg 5 mg oral Daily Gauri Ortiz PA-C 5 mg at 08/05/25920 folic acid (Folvite) tablet 1 mg 1 mg oral Daily Gauri Ortiz PA-C 1 mg at 08/05/25921 levETIRAcetam (Keppra) tablet 500 mg 500 mg oral BID Elaine Madrigal APRN-[employer] 500 mg at 08/05/252137 metoprolol tartrate (Lopressor) tablet 25 mg 25 mg oral BID Elaine Madrigal APRN-[employer] 25 mg at 08/05/252137 oxygen (O2) therapy 1 Dose inhalation Continuous - O2/gases Gauri Ortiz PA-C pantoprazole (ProtoNix) EC tablet 40 mg 40 mg oral Nightly Gauri Ortiz PA-C 40 mg at 08/05/252133 polyethylene glycol (Glycolax, Miralax) packet 17 g 17 g oral Daily Gauri Ortiz PA-C 17 g at 08/05/25921 sennosides-docusate sodium (Griselda-Colace) 8.6-50 mg per tablet 2 tablet 2 tablet oral BID Gauri Ortiz PA-C 2 tablet at 08/05/252137 Cosigned by Zahira Douglas MD at 08/06/2025 8:15 PM EDT Associated attestation - Zahira Douglas MD - 08/06/2025 8:15 PM EDT I saw and evaluated the patient. I personally obtained the de jesus and critical portions of the history and physical exam or was physically present for de jesus and critical portions performed by the resident. I reviewed the resident's documentation and discussed the patient with the resident. I agree with the resident's medical decision making as documented in the note. Patient seen and examined. He was sitting up in a chair. His BP remains relatively low. On metoprolol 25mg BID Recommend daily orthostatic vitals. If remains positive, recommend decreasing metoprolol to 12.5mg BID with holding parameters for HR <55 and SBP <110. GOC discussion done and patient was clear that he is willing to accept risk of aspiration. Time spent discussing GOC/Code status: 18 minutes Physical Therapy Physical Therapy Evaluation & Treatment Patient Name: Andres Cameron Department: [place] [id number] Room: [address] [place] [address] Today's Date: 08/05/2025 Time Calculation Start Time: 1103 Stop Time: 1138 Time Calculation (min): 35 min Assessment/Plan PT Assessment PT Assessment Results: Decreased strength, Decreased endurance, Impaired balance, Decreased mobility Rehab Prognosis: Good Barriers to Discharge Home: Caregiver assistance, Physical needs Caregiver Assistance: Caregiver assistance needed per identified barriers - however, level of patient's required assistance exceeds assistance available at home Physical Needs: Stair navigation into home limited by function/safety, Ambulating household distances limited by function/safety, 24hr mobility assistance needed, 24hr ADL assistance needed, High falls risk due to function or environment Evaluation/Treatment Tolerance: Patient tolerated treatment well, Other (Comment) (Pt was hypotensive.) Medical Staff Made Aware: Yes Strengths: Attitude of self, Premorbid level of function Barriers to Participation: Comorbidities End of Session Communication: Bedside nurse Assessment Comment: Pt participated in session with motivation to participate and was close supervision to CGA for sitting balance. ModAx1 for bed mobility and for most functional mobility with use of walker. Pt hypotensive but receiving fluids. RN made aware. Pt will continue to benefit from PT this admission. PT recommends moderate intensity upon discharge. End of Session Patient Position: Bed, 3 rail up, Alarm on (RN made aware.) IP OR SWING BED PT PLAN Inpatient or Swing Bed: Inpatient PT Plan PT Plan: Ongoing PT PT Frequency for Current Admission: 5 times per week during this acute inpatient hospitalization PT Discharge Recommendations: Moderate intensity level of continued care, Based on current functional status and rehab potential, patient is anticipated to tolerate and benefit from 5 or more days per week of skilled rehabilitative therapy after discharge from this acute inpatient hospitalization Equipment Recommended upon Discharge: (TBD) PT Recommended Transfer Status: Assist x1, Assistive device PT - OK to Discharge: Yes Subjective PT Visit Info: PT Received On: 08/05/25 General Visit Information: General Reason for Referral: mGLF with head strike, right parafalcine SDH. Past Medical History Relevant to Rehab: H/o AAA, infrarenal aneurysm, GERD, OA, HTN, HLD, CAD (on ASA), 04/2024 GLF w rSDH, 08/04/25 p/w GLF, CTH R frontal para falcine SDH, rCTH stable. Family/Caregiver Present: No Prior to Session Communication: Bedside nurse Patient Position Received: Up in chair, Alarm on Preferred Learning Style: verbal, visual, auditory General Comment: RN cleared for PT. Pt up in chair and agreeable to PT upon arrival. Pt hypotensive. RN administered IV fluids during session. Home Living: Home Living Type of Home: House Lives With: Spouse Home Adaptive Equipment: Walker rolling or standard, Cane Home Layout: Two level, Laundry main level, Able to live on main level with bedroom/bathroom Home Access: Stairs to enter with rails Entrance Stairs-Rails: Right Entrance Stairs-Number of Steps: 2 Bathroom Shower/Tub: Walk-in shower Bathroom Equipment: Shower chair with back, Grab bars in shower Home Living Comments: x1 step to kitchen with R hand rail. Prior Level of Function: Prior Function Per Pt/Caregiver Report Level of [place]: Independent with ADLs and functional transfers, Independent with homemaking with ambulation ADL Assistance: Independent Homemaking Assistance: Independent Ambulatory Assistance: Independent Vocational: Retired Leisure: Volunteering Prior Function Comments: x3 falls (including pre-admission fall) in past 6 months; + drives Precautions: Precautions Medical Precautions: Fall precautions (Sinus precautions) Precautions Comment: SBP <160 Vital Signs Comment: Pre-PT, seated: BP 90/56, SpO2 94%, HR 70bpm. During PT, seated: BP 99/60, SpO2 95%, HR 69bpm. Post-PT, supine: BP 110/66, SpO2 96%, HR 67bpm. (Pt hypotensive throughout session. RN notified and administed IV fluids during session. Pt denied symptoms of dizziness throughout session.) Objective Pain: Pain Assessment Pain Assessment: 0-10 0-10 (Numeric) Pain Score: 0 - No pain Cognition: Cognition Overall Cognitive Status: Within Functional Limits Arousal/Alertness: Appropriate responses to stimuli Orientation Level: Oriented X4 Following Commands: Follows all commands and directions without difficulty General Assessments: Activity Tolerance Endurance: Tolerates 10 - 20 min exercise with multiple rests Sensation Light Touch: No apparent deficits (Denies N/T) Strength Strength Comments: At least 3+/5 BLE observed through functional mobility. Static Sitting Balance Static Sitting-Balance Support: No upper extremity supported, Feet supported Static Sitting-Level of Assistance: Close supervision Static Sitting-Comment/Number of Minutes: Chair and EOB Dynamic Sitting Balance Dynamic Sitting-Balance Support: Bilateral upper extremity supported Dynamic Sitting-Level of Assistance: Contact guard Dynamic Sitting-Comments: BLE AROM and scooting Static Standing Balance Static Standing-Balance Support: Bilateral upper extremity supported Static Standing-Level of Assistance: (ModAx1) Static Standing-Comment/Number of Minutes: Use of walker Dynamic Standing Balance Dynamic Standing-Balance Support: Bilateral upper extremity supported Dynamic Standing-Level of Assistance: (ModAx1) Dynamic Standing-Comments: Ambulation with use of walker Functional Assessments: Bed Mobility Bed Mobility: Yes Bed Mobility 1 Bed Mobility 1: Sitting to supine Level of Assistance 1: (ModAx1. VCs for hand placement. Assist with trunk and BLE.) Bed Mobility Comments 1: HOB slightly elevated Bed Mobility 2 Bed Mobility 2: Scooting (Toward HOB) Level of Assistance 2: Dependent, +2 Bed Mobility Comments 2: HOB elevated to maintain sinus precautions Transfers Transfer: Yes Transfer 1 Transfer From 1: Sit to, Stand to Transfer to 1: Stand, Sit Technique 1: Sit to stand, Stand to sit Transfer Device 1: Walker Transfer Level of Assistance 1: (ModAx1. VCs for hand placement and walker management) Trials/Comments 1: x3 from chair Transfers 2 Transfer From 2: Chair with arms to Transfer to 2: Bed Technique 2: Sit to stand, Stand to sit Transfer Device 2: Walker Transfer Level of Assistance 2: (ModAx1. VCs for hand placement and walker management) Trials/Comments 2: x1 bed>chair Ambulation/Gait Training Ambulation/Gait Training Performed: Yes Ambulation/Gait Training 1 Surface 1: Level tile Device 1: Rolling walker Assistance 1: (ModAx1. VCs for walker management and hand placement) Quality of Gait 1: Narrow base of support Comments/Distance (ft) 1: ~8ft F/B Extremity/Trunk Assessments: RLE RLE : Within Functional Limits (AROM) LLE LLE : Within Functional Limits (AROM) Treatments: Therapeutic Activity Therapeutic Activity Performed: Yes Therapeutic Activity 1: Education on hand placement, walker managment, PT plan of care, and discharge planning. Therapeutic Activity 2: Transfer training, gait training, bed mobility, and bed mobility. Ambulation/Gait Training Ambulation/Gait Training Performed: Yes Ambulation/Gait Training 1 Surface 1: Level tile Device 1: Rolling walker Assistance 1: (ModAx1. VCs for walker management and hand placement) Quality of Gait 1: Narrow base of support Comments/Distance (ft) 1: ~8ft F/B Transfers Transfer: Yes Transfer 1 Transfer From 1: Sit to, Stand to Transfer to 1: Stand, Sit Technique 1: Sit to stand, Stand to sit Transfer Device 1: Walker Transfer Level of Assistance 1: (ModAx1. VCs for hand placement and walker management) Trials/Comments 1: x3 from chair Transfers 2 Transfer From 2: Chair with arms to Transfer to 2: Bed Technique 2: Sit to stand, Stand to sit Transfer Device 2: Walker Transfer Level of Assistance 2: (ModAx1. VCs for hand placement and walker management) Trials/Comments 2: x1 bed>chair Outcome Measures: [facility] Basic Mobility Turning from your back to [...] Total Basic Mobility - Total Score: 11 Care Plan Goals: Encounter Problems Encounter Problems (Active) Balance Pt will score >24/28 on the Tinetti in order to improve balance. (Progressing) Start: 08/05/25 Expected End: 08/19/25 Mobility Pt will perform bed mobility with close supervision in order to demonstrate safety with mobility. (Progressing) Start: 08/05/25 Expected End: 08/19/25 Pt will ambulate at least 75ft with CGA and LRAD to demonstrate progression toward safe ambulation of household distances. (Progressing) Start: 08/05/25 Expected End: 08/19/25 Pt will ascend/descend at least 2 steps with Rajwinder and one hand held to demonstrate safety with stair navigation. (Not Progressing) Start: 08/05/25 Expected End: 08/19/25 PT Transfers Pt will perform sit<>stand and bed<>chair with CGA and LRAD to demonstrate safety with transfers. (Progressing) Start: 08/05/25 Expected End: 08/19/25 Education Documentation Precautions, taught by AZAR Dumont at 08/05/2025 3:20 PM. Learner: Patient Readiness: Acceptance Method: Explanation Response: Verbalizes Understanding, Needs Reinforcement Comment: Education on hand placement and walker management for safe mobility, PT plan of care, and discharge planning. Body Mechanics, taught by AZAR Dumont at 08/05/2025 3:20 PM. Learner: Patient Readiness: Acceptance Method: Explanation Response: Verbalizes Understanding, Needs Reinforcement Comment: Education on hand placement and walker management for safe mobility, PT plan of care, and discharge planning. Mobility Training, taught by AZAR Dumont at 08/05/2025 3:20 PM. Learner: Patient Readiness: Acceptance Method: Explanation Response: Verbalizes Understanding, Needs Reinforcement Comment: Education on hand placement and walker management for safe mobility, PT plan of care, and discharge planning. SAVANNAH Dumont Completion of this session, clinical decision making, and documentation performed under the supervision/direction of Beth Jung DPT. Cosigned by Beth Jung PT at 08/05/2025 5:29 PM EDT Occupational Therapy Evaluation/Treatment Patient Name: Fawn Campos Department: [place] [address] Room: 8008009-A Today's Date: 08/05/25 Time Calculation Start Time: 1026 Stop Time: 1050 Time Calculation (min): 24 min Assessment: OT Assessment: Pt presents to OT with increased falls risk, decreased safety and independence with functional transfers and mobility and impaired ADL performance. Pt will continue to benefit from skilled OT services to address deficits and facilitate safe return to PLOF and home environment. Prognosis: Good Barriers to Discharge Home: Physical needs Physical Needs: Ambulating household distances limited by function/safety, 24hr mobility assistance needed, 24hr ADL assistance needed, High falls risk due to function or environment Evaluation/Treatment Tolerance: Patient tolerated treatment well Medical Staff Made Aware: Yes End of Session Communication: Bedside nurse End of Session Patient Position: Up in chair, Alarm on OT Assessment Results: Decreased ADL status, Decreased upper extremity strength, Decreased safe judgment during ADL, Decreased endurance, Decreased functional mobility, Decreased IADLs Prognosis: Good Evaluation/Treatment Tolerance: Patient tolerated treatment well Medical Staff Made Aware: Yes Plan: Treatment Interventions: ADL retraining, Functional transfer training, UE strengthening/ROM, Endurance training, Patient/family training, Equipment evaluation/education, Compensatory technique education OT Frequency for Current Admission: 3 times per week during this acute inpatient hospitalization OT Discharge Recommendations: Moderate intensity level of continued care, Based on current functional status and rehab potential, patient is anticipated to tolerate and benefit from 5 or more days per week of skilled rehabilitative therapy after discharge from this acute inpatient hospitalization OT Recommended Transfer Status: Moderate assist OT - OK to Discharge: Yes Treatment Interventions: ADL retraining, Functional transfer training, UE strengthening/ROM, Endurance training, Patient/family training, Equipment evaluation/education, Compensatory technique education Subjective Current Problem: 1. Head injury, initial encounter OT Visit Info: OT Received On: 08/05/25 General Visit Info: General Reason for Referral: mGLF with head strike, right parafalcine SDH Past Medical History Relevant to Rehab: H/o AAA, infrarenal aneurysm, HTN, HLD, CAD (on ASA), 04/2024 GLF w rSDH, 08/04 p/w GLF, CTH R frontal para falcine SDH, rCTH stable Prior to Session Communication: Bedside nurse Patient Position Received: Bed, 3 rail up, Alarm on General Comment: pleasant and cooperative, agreeable to participate Precautions: Medical Precautions: Fall precautions Precautions Comment: SBP <160 Date/Time Vitals Session Patient Position Pulse Resp SpO2 BP MAP (mmHg) 08/05/25 1145 -- -- 64 17 94 % 102/64 76 Vital Signs Comment: Lying B/P- 119/70 HR- 64 O2- 92% Sitting B/P- 91/53 HR- 70 O2-94% Standing B/P- 84/55 HR-83 O2- 90% Pain: Pain Assessment Pain Assessment: 0-10 0-10 (Numeric) Pain Score: 0 - No pain Objective Cognition: Overall Cognitive Status: Within Functional Limits Orientation Level: Oriented X4 Insight: Within function limits Impulsive: Within functional limits Home Living: Type of Home: House Lives With: Spouse Home Adaptive Equipment: Cane, Walker rolling or standard Home Layout: Two level, Able to live on main level with bedroom/bathroom Home Access: Stairs to enter without rails Entrance Stairs-Number of Steps: 1+1 Bathroom Shower/Tub: Walk-in shower Bathroom Equipment: Built-in shower seat Prior Function: Level of [place]: Independent with ADLs and functional transfers, Independent with homemaking with ambulation ADL Assistance: Independent Homemaking Assistance: Independent Ambulatory Assistance: Independent Vocational: Retired 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 Prior Function Comments: pt denies other falls; recent admission with d/c to SNF, was d/c home end of june and was active with home therapy, working with RW, progressing towards cane IADL History: Current License: Yes Mode of Transportation: Car ADL: Eating Assistance: Independent Eating Deficit: (modified diet) Grooming Assistance: Stand by Grooming Deficit: Setup Bathing Assistance: Moderate UE Dressing Assistance: Minimal UE Dressing Deficit: (gown management) LE Dressing Assistance: Maximal LE Dressing Deficit: Don/doff R sock, Don/doff L sock Toileting Assistance with Device: Moderate Activity Tolerance: Endurance: Tolerates 10 - 20 min exercise with multiple rests (see BPs; RN present, aware and ok with OOB to chair) Bed Mobility/Transfers: Bed Mobility Bed Mobility: Yes Bed Mobility 1 Bed Mobility 1: Supine to sitting Level of Assistance 1: Moderate assistance Bed Mobility Comments 1: A to guide BLEs and manage trunk to sit EOB, HOB elevated slightly Transfers Transfer: Yes Transfer 1 Technique 1: Sit to stand, Stand to sit Transfer Device 1: Walker Transfer Level of Assistance 1: Moderate assistance Trials/Comments 1: retropulsive Functional Mobility: Functional Mobility Functional Mobility Performed: Yes Functional Mobility 1 Comments 1: facilitated short distances from EOB to chair with RW and mod A, posterior lean Therapy/Activity: Therapeutic Activity Therapeutic Activity Performed: Yes Therapeutic Activity 1: skilled monitoring of vitals and increased time for functional transitions and mobility, skilled interventions with emphasis on pt education, discharge planning, and balance assessment. Vision:Vision - Basic Assessment Current Vision: Wears glasses all the time Sensation: Light Touch: No apparent deficits Strength: Strength Comments: BUE >/=3/5 Perception: Inattention/Neglect: Appears intact Initiation: Appears intact Motor Planning: Appears intact Perseveration: Not present Coordination: Movements are Fluid and Coordinated: Yes Hand Function: Hand Function Gross Grasp: Functional Coordination: Functional Extremities: RUE RUE : Within Functional Limits and LUE LUE: Within Functional Limits Outcome Measures: [facility] Daily Activity Putting on and taking off regular lower body clothing: A lot Bathing (including washing, rinsing, drying): A lot Putting on and taking off regular upper body clothing: A little Toileting, which includes using toilet, bedpan or urinal: A lot Taking care of personal grooming such as brushing teeth: A little Eating Meals: None Daily Activity - Total Score: 16 and Brief Confusion Assessment Method (bCAM) CAM Result: CAM - Education Documentation Body Mechanics, taught by Estela Peters OT at 08/05/2025 1:30 PM. Learner: Patient Readiness: Acceptance Method: Explanation Response: Verbalizes Understanding Precautions, taught by Estela Peters OT at 08/05/2025 1:30 PM. Learner: Patient Readiness: Acceptance Method: Explanation Response: Verbalizes Understanding ADL Training, taught by Estela Peters OT at 08/05/2025 1:30 PM. Learner: Patient Readiness: Acceptance Method: Explanation Response: Verbalizes Understanding Care Plan Goals: Encounter Problems Encounter Problems (Active) ADLs Patient will complete daily grooming tasks with independent level of assistance and PRN adaptive equipment while standing. Start: 08/05/25 Expected End: 08/26/25 Patient will demonstrate lower body dressing with modified independent level of assistancedonning and doffing all LE clothes with PRN adaptive equipment Start: 08/05/25 Expected End: 08/26/25 Patient will perform toileting tasks, including hygiene and clothing management with independent level of assistance Start: 08/05/25 Expected End: 08/26/25 EXERCISE/STRENGTHENING pt will be IND with BUE HEP for increasing functional strength and activity tolerance required for ADL completion Start: 08/05/25 Expected End: 08/26/25 MOBILITY pt will safely demonstrate functional mobility, to/from bathroom and at other household distances, navigating around environmental barriers with LRD and mod I Start: 08/05/25 Expected End: 08/26/25 TRANSFERS Patient will demonstrate functional transfers with least restrictive device with modified independent level of assistance. Start: 08/05/25 Expected End: 08/26/25 08/05/25 at 1:34 PM Estela Peters OT Rehab Office: [phone] 08/05/25 1155 Rapid Rounds Attendance Provider;Care Transitions Expected Discharge Disposition SNF Today we still await: Clinical stability;Placement process;Abstract Writer recommendations (Comment) (Pending PT/OT.) Review at Escalation Rounds No escalation needed Per previous TCC note, patient had positive experience at [facility]'s TCU and would like to return if SNF needed. Requested PT/OT notes. Will not need precert. Started referral in [facility]. Melody Casey RN, TCC [facility] TRAUMA SERVICE - PROGRESS NOTE Patient Name: Fawn Cameron Admit Date: [id number] : 1935 AGE: 89 y.o. GENDER: male ======== MECHANISM OF INJURY: 89 yo M s/p fall this am when getting out of bed. Pt. [place] weak and legs gave out when getting gup this am. Went to osh, CT head and cervical spine obtained. Injuries: right parafalcine SDH, resolution of previous right SAH. Transferred to [facility] for further trauma and NSGY eval. Recent admission to trauma service in April. 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 Patient was found to have right orbital [...] visits with ENT and ophthalmology upon discharge. Patient failed his speech evaluation because of aspiration, Dobbhoff is placed. Patient is tolerating tube feeds and is at goal. Discharged to SNF. LOC (yes/no?): No Anticoagulant / Anti-platelet Rx? (for what dx?): ?ASA Referring Facility Name (N/A for scene EMR run): [facility] ED INJURIES: right parafalcine SDH OTHER MEDICAL PROBLEMS: GERD HTN Osteoarthritis PADMA CAD Remote TIA Infrarenal AAA INCIDENTAL FINDINGS: Stable appearance of large infrarenal aortic aneurysm measuring up to 4.9 cm Multiple subacute to remote appearing fractures within the right hemipelvis, callused right rib fx ======== TODAY'S ASSESSMENT AND PLAN OF CARE: #right parafalcine SDH -repeat head ct stable -Neuro checks every 4 hours -Silvano tylenol for pain control, oxy dc'd, not requiring oxy -PT/OT -Shira 7 days #recurrent falls -Geriatric consult -Falls precautions #Comorbids -resumed home amitriptyline, Vit D, Lexapro, folic acid, Lopressor, PPI -Kaela to review meds, follow up recs FEN: - reports not requiring tube feeds. Diet has been advanced to easy to chew and [place] thick liquids. -Home diet ordered -IS -Strict I/Os -BR -Monitor electrolytes as needed, replete as needed Proph: SCDs, hold chemoprophylaxis for 48 hours after stable head bleed, can start tomorrow. Dispo: Continue care on floor. Pt. And plan discussed with Dr. Jung. Elaine Madrigal, [facility] Trauma Surgery [id number] Total face to face time spent with patient/family of 20 minutes, with >50% of the time spent discussing plan of care/management, counseling/educating on disease processes, explaining results of diagnostic testing. ======== CHIEF COMPLAINT / OVERNIGHT EVENTS: Admitted overnight. No acute events. MEDICAL HISTORY / ROS: Admission history and ROS reviewed. Pertinent changes as follows: No complaints this am. PHYSICAL EXAM: Heart Rate: [54-97] Temp: [36.3 C (97.3 F)-37 C (98.6 F)] Resp: [9-20] BP: (131-173)/(62-96) Height: [167.6 cm (5' 6)] Weight: [65.3 kg (144 lb)] SpO2: [93 %-99 %] Physical Exam Aox3. NAD. Sleeping, arouses to speech. Respirations even and unlabored. Thorax symmetric. Abd round, soft, nontender, nondistended. Peg tube in place. Strength 5/5 x4. No pitting edema. LABS: Results from last 7 days Lab Units 08/04/25 1451 08/04/25 0837 WBC AUTO x10*3/uL 6.8 6.9 HEMOGLOBIN g/dL 12.4* 12.3* HEMATOCRIT % 37.1* 38.3* PLATELETS AUTO x10*3/uL 255 224 NEUTROS PCT AUTO % 73.1 75.3 LYMPHS PCT AUTO % 15.5 12.7 MONOS PCT AUTO % 9.1 8.8 EOS PCT AUTO % 1.3 2.2 Results from last 7 days Lab Units 08/04/25 1451 08/04/25 0837 SODIUM mmol/L 143 142 POTASSIUM mmol/L 4.1 4.0 CHLORIDE mmol/L 105 107 CO2 mmol/L 30 28 BUN mg/dL 12 15 CREATININE mg/dL 0.77 0.84 CALCIUM mg/dL 9.1 8.9 PROTEIN TOTAL g/dL 5.9* -- BILIRUBIN TOTAL mg/dL 0.5 -- ALK PHOS U/L 94 -- ALT U/L 16 -- AST U/L 15 -- GLUCOSE mg/dL 87 88 Results from last 7 days Lab Units 08/04/25 1451 BILIRUBIN TOTAL mg/dL 0.5 I have reviewed all medications, laboratory results, and imaging pertinent for today's encounter. 08/04/25 1841 Discharge Planning Living Arrangements Spouse/significant other Support Systems Spouse/significant other Assistance Needed -- Type of Residence Private residence Number of Stairs to Enter Residence 3 Number of Stairs Within Residence 0 Do you have animals or pets at home? No Home or Post Acute Services In home services Type of Home Care Services Home PT;Home OT;DME or oxygen Does the patient need discharge transport arranged? Yes [employer] coordination needed? Yes Financial Resource Strain How hard is it [...] were you homeless or living in a custodial (including now)? N Transportation Needs In the past 12 months, has lack of transportation kept you from medical appointments or from getting medications? no In the past 12 months, has lack of transportation kept you from meetings, work, or from getting things needed for daily living? No Patient Choice Patient / Family choosing to utilize agency / facility established prior to hospitalization No Stroke Family Assessment Stroke Family Assessment Needed No Intensity of Service Intensity of Service 0-30 min Fawn Campos is a 89 y.o. male on day 0 of admission presenting with Head injury, initial encounter. TCC introduced self and role in care to patient and his family who was at bedside. He reports he lives in a single family home with his and no pets. Patient needs assistance with bathing and standby assist with other ADLs and uses a walker to ambulate. Patient has Medicare for insurance and sees of for primary care. Family reports that patient was admitted in April for similar incident and had a good experience with [facility]'s TCU and would like patient to return there if rehabilitation is needed. Patient currently active with [facility] for home PT/OT. Patient's family denies any housing, transportation, or financial concerns. [facility] will continue to follow patient for discharge planning. NOK: Diya() Dialysis: No Home O2: No Home Health: Home PT/OT [facility] Pharmacy: [facility](mail order) [facility] DME: Walker, rollator, shower chair, bedside commode [facility] Medication History Review Fawn Campos is a 89 y.o. male admitted for No Principal Problem: There is no principal problem currently on the Problem List. Please update the Problem List and refresh.. Pharmacy reviewed the patient's [id number] medications and allergies for accuracy. Medications ADDED: N/A Medications CHANGED: Acetaminophen Cardura Prilosec Medications REMOVED/NOT TAKING: D3 Trexall The list below reflects the updated FORK ASSEM[employer]ER list. Prior to Admission Medications Prescriptions Last Dose Informant acetaminophen (Tylenol) 325 mg tablet Spouse/Significant Other Si tablets (650 mg) by nasogastric tube route every 6 hours. Patient not taking: Reported on 08/04/2025 acetaminophen 500 mg powder in packet Spouse/Significant Other Sig: Take 1,000 mg by mouth every 6 hours. Patient taking differently: Take 1,000 mg by mouth every 6 hours if needed (pain). amitriptyline (Elavil) 10 mg tablet 08/03/2025 Bedtime Spouse/Significant Other Sig: Take 1 tablet (10 mg) by mouth once daily at bedtime. aspirin 81 mg EC tablet 08/03/2025 Morning Spouse/Significant Other Sig: Take 1 tablet (81 mg) by mouth once daily. benazepril (Lotensin) 40 mg tablet 08/03/2025 Morning Spouse/Significant Other Sig: Take 1 tablet (40 mg) by mouth once daily. cholecalciferol (Vitamin D-3) 125 mcg (5,000 units) tablet Spouse/Significant Other Sig: Take 1 tablet (125 mcg) by mouth once daily. Patient not taking: Reported on 08/04/2025 doxazosin (Cardura) 4 mg tablet 08/03/2025 Bedtime Spouse/Significant Other Sig: Take 1 tablet (4 mg) by mouth once daily. Patient taking differently: Take 1 tablet (4 mg) by mouth once daily at bedtime. escitalopram (Lexapro) 5 mg tablet 08/03/2025 Morning Spouse/Significant Other Sig: Take 1 tablet (5 mg) by mouth once daily. folic acid (Folvite) 1 mg tablet 08/03/2025 Morning Spouse/Significant Other Sig: Take 2 tablets (2 mg) by mouth once daily. Patient taking differently: Take 1 tablet (1 mg) by mouth once daily. methotrexate (Trexall) 2.5 mg tablet Not Taking Spouse/Significant Other Sig: Take 8 tablets (20 mg total) by mouth 1 (one) time per week. On Sundays Patient not taking: Reported on 08/04/2025 metoprolol tartrate (Lopressor) 25 mg tablet 08/03/2025 Evening Spouse/Significant Other Sig: Take 1 tablet (25 mg) by mouth 2 times a day. omeprazole (PriLOSEC) [address] capsule 08/03/2025 Bedtime Spouse/Significant Other Sig: Take 1 capsule (40 mg) by mouth once daily in the morning. Take before meals. Patient taking differently: Take 1 capsule (40 mg) by mouth once daily at bedtime. pravastatin (Pravachol) 40 mg tablet 08/03/2025 Bedtime Spouse/Significant Other Sig: Take 1 tablet (40 mg) by mouth once daily at bedtime. Facility-Administered Medications: None The list below reflects the updated allergy list. Please review each documented allergy for additional clarification and justification. Allergies Reviewed by Sammie Astudillo on 08/04/2025 No Known Allergies Patient accepts M2B at discharge. Sources: [facility] Pharmacy dispense history Patient Interview Unable to provide any details Spouse Diya () Good historian Chart Review Care Everywhere Additional Comments: Pts was at beside, she had a med list with her. SAMMIE ASTUDILLO Electromechanical Technician 08/04/25 Secure Chat preferred If no response call [employer] or [employer] Management Rec documented in this encounter [facility] Work Phone: 08-09-2025 Plan of care note The patient's goals for the shift include The clinical goals for the shift include Pt remain free from further injury throughout the shift. [facility] Work Phone: 08-09-2025 Miscellaneous Notes The patient's goals for the shift include The clinical goals for the shift include Pt remain free from further injury throughout the shift. The patient's goals for the shift include The clinical goals for the shift include pt will remain free of injury and have strict intake and output recordings [facility] shift The clinical goals for the shift include Pt will remain free from falls and injury throughout the shift The patient's goals for the shift include The clinical goals for the shift include pt will remain free of injury and have adequate pain control during shift PATIENT: FAWN CAMERON : 1935 ADMIT DATE: 08/04/2025 1:50 PM DISCH DATE: RESPONDING PROVIDER #: [id number] PROVIDER RESPONSE TEXT: I agree with city carrier assistant diagnosis of moderate malnutrition on 08/06/25 CDI QUERY TEXT: Clarification Instruction: Based on your assessment of the patient and the clinical information, please provide the requested documentation by clicking on the appropriate radio button and enter any additional information if prompted. Question: Please further clarify this patient nutritional status as When answering this query, please exercise your independent professional judgment. The fact that a question is being asked, does not imply that any particular answer is desired or expected. The patient's clinical indicators include: Clinical Information: 89 yr old male admitted with SDH Clinical Indicators: 08/06 Nutrition assessment: Malnutrition Diagnosis: Moderate malnutrition related to acute disease or injury Related to: multiple recent falls As Evidenced by: areas of subcutaneous fat loss and muscle wasting Treatment: nutritional supplements Risk Factors: age Options provided: -- I agree with city carrier assistant diagnosis of moderate malnutrition on 08/06/25 -- Other - I will add my own diagnosis -- Refer to Clinical Documentation Reviewer Query created by: Adela Avina on 08/07/2025 12:19 PM Electronically signed by: ELAINE FUENTES 08/07/2025 3:24 PM The clinical goals for the shift include Pt will remain free from falls throughout the shift The patient's goals for the shift include The clinical goals for the shift include pt will have stable vs The patient's goals for the shift include The clinical goals for the shift include pt will have stable vs Advance Care Planning Note Discussion Date: 08/06/25 Discussion Participants: patient, spouse, daughter, and son The patient wishes to discuss Advance Care Planning today and the following is a brief summary of our discussion. Patient has capacity to make their own medical decisions: Yes Health Care Agent/Surrogate Decision Maker documented in chart: Yes Documents on file and valid: Advance Directive/Living Will: Yes Health Care Power of Customer Service Teller: Yes Other: N/A Communication of Medical Status/Prognosis: Discussed swallow study results with patient that aspiration with all consistencies was seen. [place] to be due to anatomical deficits and did not feel there was rehab potential to improve. Discussed options for either NPO with oral care and use of existing PEG for nutrition and meds. The other option being to resume home diet and accept risk of aspiration given the pleasure and quality of life that PO intake affords. Discussed risk and benefit of each with patient and family. Communication of Treatment Goals/Options: Goal of pt expressed is to maximize quality of life. Pt discussed with family and stated that his quality of life is paramount. He accepted risk of worsened clinical course (aspiration pneumonitis/pneumonia) if PO because he values the quality of life it provides. Given risk of future decompensation from taking oral intake, Pt discussed code status with family and would like to be DNI and no ICU. Will update code status in chart. Questions answered Code status changed from DNR to DNR/DNI/no ICU Treatment Decisions Goals of Care: quality of life is prioritized; willing to accept low-burden treatments to achieve meaningful goals Follow Up Plan Additional listening and support Team Members Geriatrics team and attending Dr Douglas Time Statement: Total face to face time spent on advance care planning was 10 minutes with 5 minutes spent in counseling, including the explanation. Selam Jerry MD 08/06/2025 1:29 PM Cosigned by Sharon Rivera RDN, LORE at 08/06/2025 3:18 PM EDT The patient's goals for the shift include The clinical goals for the shift include free from injury The patient's goals for the shift include free from injury The clinical goals for the shift include free from injury The patient's goals for the shift include The clinical goals for the shift include Patient will be HDS The patient's goals for the shift include Patient will be HDS The clinical goals for the shift include Patient will be HDS 89M with history of TIA, CAD, AAA, HTN, HLD, GERD, dysphagia s/p PEG, RA, vestibular migraines, and BPH transferred to [facility] on 08/04 after fall when getting out of bed CT head and cervical spine obtained. Injuries: right parafalcine SDH, resolution of previous right SAH. Lew scan with subacute R hemipelvis fractures, possible acute R sacral ala fracture. Reviewed by ortho and appears subacute. No point tenderness or worsened pain since fall. Repeat CTH stable. NSGY consulted, rec maintain SBP <160, Keppra x7 days. Patient admitted to trauma floor with telemetry. Geriatrics consulted. Speech therapy evaluated patient in setting of dysphagia. Failed MBSS 08/06. After goals of care with family, patient to continue to soft diet and nectar thickened liquids as desired. Required IVF and additional fluids per PEG for orthostatic hypotension. Patient medically ready for transfer to SNF. ,,,, documented in this encounter [facility] Work Phone: 08-09-2025 Hospital course Narrative Discharge Diagnosis Head injury, initial encounter Issues Requiring Follow-Up SDH Test Results Pending At Discharge Pending Labs No current pending labs. Hospital Course 89M with history of TIA, CAD, AAA, HTN, HLD, GERD, dysphagia s/p PEG, RA, vestibular migraines, and BPH transferred to [facility] on 08/04 after fall when getting out of bed CT head and cervical spine obtained. Injuries: right parafalcine SDH, resolution of previous right SAH. Lew scan with subacute R hemipelvis fractures, possible acute R sacral ala fracture. Reviewed by ortho and appears subacute. No point tenderness or worsened pain since fall. Repeat CTH stable. NSGY consulted, rec maintain SBP <160, Keppra x7 days. Patient admitted to trauma floor with telemetry. Geriatrics consulted. Speech therapy evaluated patient in setting of dysphagia. Failed MBSS 08/06. After goals of care with family, patient to continue to soft diet and nectar thickened liquids as desired. Required IVF and additional fluids per PEG for orthostatic hypotension. Patient medically ready for transfer to SNF. Right eye drainage, ophthalmology recs: right lower eyelid abrasion. Please start Maxitrol ointment BID to the abrasion for 1 week Visit Vitals BP 120/75 (BP Location: Left arm, Patient Position: Lying) Pulse 71 Temp 36.1 C (97 F) (Temporal) Resp 17 Vitals: 08/06/25 1442 Weight: 65.3 kg (143 lb 15.4 oz) Immunization History Administered Date(s) Administered Flu vaccine, trivalent, preservative free, HIGH-DOSE, age 65y+ (Fluzone) 07/25/2018, 07/26/2020, 07/19/2021, 07/16/2023, 07/15/2025 Influenza, Unspecified 07/07/2024 Influenza, seasonal, injectable 07/19/2021 Moderna COVID-19 vaccine, 12 years and older (50mcg/0.5mL)(Spikevax) 08/24/2023, 08/22/2024, 06/02/2025 Moderna COVID-19 vaccine, bivalent, blue cap/callaway label *Check age/dose* 08/02/2022 Moderna SARS-CoV-2 Vaccination 10/27/2020, 11/24/2020, 09/08/2021, 02/14/2022, 08/02/2022 Novel [id number], preservative-free 10/04/2009 Pneumococcal conjugate vaccine, 13-valent (PREVNAR 13) 10/11/2016 Pneumococcal polysaccharide vaccine, 23-valent, age 2 years and older (PNEUMOVAX 23) 10/11/2020 RSV, 60 Years And Older (AREXVY) 07/28/2024 Tdap vaccine, age 7 year and older (BOOSTRIX, ADACEL) 05/10/2025 Zoster vaccine, recombinant, adult (SHINGRIX) 08/05/2018, 10/08/2018 Results Pertinent Physical Exam At Time of Discharge Physical Exam Aox3. NAD. Sleeping, arouses to speech. Respirations even and unlabored. Thorax symmetric. Abd round, soft, nontender, nondistended. Normal rate. Peg tube in place. Strength 5/5 x4. No pitting edema. Home Medications Medication List PAUSE taking these medications amitriptyline 10 mg tablet; Wait to take this until your doctor or other care provider tells you to start again.; Commonly known as: Elavil; Take 1 tablet (10 mg) by mouth once daily at bedtime. aspirin 81 mg EC tablet; Wait to take this until your doctor or other care provider tells you to start again. benazepril 40 mg tablet; Wait to take this until your doctor or other care provider tells you to start again.; Commonly known as: Lotensin; Take 1 tablet (40 mg) by mouth once daily. doxazosin 4 mg tablet; Wait to take this until your doctor or other care provider tells you to start again.; Commonly known as: Cardura; What changed: when to take this methotrexate 2.5 mg tablet; Wait to take this until your doctor or other care provider tells you to start again.; Commonly known as: Trexall START taking these medications levETIRAcetam 500 mg tablet; Commonly known as: Keppra; Take 1 tablet (500 mg) by mouth 2 times a day. lisinopril 5 mg tablet; Take 1 tablet (5 mg) by mouth once daily. sennosides-docusate sodium 8.6-50 mg tablet; Commonly known as: Griselda-Colace; Take 2 tablets by mouth 2 times a day. CHANGE how you take these medications acetaminophen 325 mg tablet; Commonly known as: Tylenol; Take 3 tablets (975 mg) by mouth every 8 hours.; What changed: how much to take, how to take this, when to take this, Another medication with the same name was removed. Continue taking this medication, and follow the directions you see here. omeprazole [address] capsule; Commonly known as: PriLOSEC; Take 1 capsule (40 mg) by mouth once daily in the morning. Take before meals.; What changed: when to take this CONTINUE taking these medications escitalopram 5 mg tablet; Commonly known as: Lexapro; Take 1 tablet (5 mg) by mouth once daily. folic acid 1 mg tablet; Commonly known as: Folvite; Take 2 tablets (2 mg) by mouth once daily. metoprolol tartrate 25 mg tablet; Commonly known as: Lopressor; Take 1 tablet (25 mg) by mouth 2 times a day. pravastatin 40 mg tablet; Commonly known as: Pravachol; Take 1 tablet (40 mg) by mouth once daily at bedtime. ASK your doctor about these medications cholecalciferol 125 mcg (5,000 units) tablet; Commonly known as: Vitamin D-3; Take 1 tablet (125 mcg) by mouth once daily. Outpatient Follow-Up Future Appointments Date Time Provider Department [place] 08/17/2025 3:20 PM Don Barrera MD [id number] [facility] 08/19/2025 8:30 AM [facility] X-[facility] FLUORO 1 VENKAT [place] Information provided in AVS to call to schedule follow up with Neurosurgery. GINA Terry documented in this encounter [facility] Work Phone: 08-08-2025 Plan of care note The patient's goals for the shift include The clinical goals for the shift include pt will remain free of injury and have strict intake and [facility] 08-08-2025 Plan of care note The clinical goals for the shift include Pt will remain free from falls and injury throughout the shift [facility] Work Phone: 08-08-2025 Plan of care note The patient's goals for the shift include The clinical goals for the shift include pt will remain free of injury and have adequate pain control during shift [facility] Work Phone: 08-07-2025 Note Formatting of this n ote might be different from the original. PATIENT: FAWN CAMERON : 1935 ADMIT DATE: 08/04/2025 1:50 PM DISCH DATE: RESPONDING PROVIDER #: [id number] PROVIDER RESPONSE TEXT: I agree with city carrier assistant diagnosis of moderate malnutrition on 08/06/25 CDI QUERY TEXT: Clarification Instruction: Based on your assessment of the patient and the clinical information, please provide the requested documentation by clicking on the appropriate radio button and enter any additional information if prompted. Question: Please further clarify this patient nutritional status as When answering this query, please exercise your independent professional judgment. The fact that a question is being asked, does not imply that any particular answer is desired or expected. The patient's clinical indicators include: Clinical Information: 89 yr old male admitted with SDH Clinical Indicators: 08/06 Nutrition assessment: Malnutrition Diagnosis: Moderate malnutrition related to acute disease or injury Related to: multiple recent falls As Evidenced by: areas of subcutaneous fat loss and muscle wasting Treatment: nutritional supplements Risk Factors: age Options provided: -- I agree with city carrier assistant diagnosis of moderate malnutrition on 08/06/25 -- Other - I will add my own diagnosis -- Refer to Clinical Documentation Reviewer Query created by: Adela Avina on 08/07/2025 12:19 PM Electronically signed by: ELAINE FUENTES 08/07/2025 3:24 PM [facility] Work Phone: 08-07-2025 Hospital Discharge instructions Selam Jerry MD - 08/07/2025 1:28 PM EDT Recommend consideration of flomax for urinary retention if needed upon discharge as has less of an impact on systemic blood pressure compared to afluzosin documented in this encounter [facility] Work Phone: 08-07-2025 Plan of care note The clinical goals for the shift include Pt will remain free from falls throughout the shift [facility] Work Phone: 08-07-2025 Nurse Note Ortho's completed Patient tolerated well and remained stable throughout the event. Respirations remained even and unlabored. Denies any pain or discomfort. Pt was transferred into chair per his request and family is at bedside. Lying B/P 137/71 MAP 93 HR 72 Sitting B/P 137/82 MAP 99 HR 84 Standing B/P 126/70 MAP [address] [facility] 08-07-2025 Plan of care note The patient's goals for the shift include The clinical goals for the shift include pt will have stable vs [facility] 08-07-2025 Plan of care note The patient's goals for the shift include The clinical goals for the shift include pt will have stable vs [facility] Work Phone: 08-06-2025 Consult note Associated Order (s): IP CONSULT TO NUTRITION SERVICES Nutrition Initial Assessment: Nutrition Assessment Reason for Assessment: Admission nursing screening Patient is a 89 y.o. male s/p fall 08/04 when getting out of bed. Pt. [place] weak and legs gave out when getting up 08/04. Went to osh, CT head and cervical spine obtained. Injuries: right parafalcine SDH, resolution of previous right SAH. Transferred to [facility] for further trauma and NSGY eval PMHx: GERD, HTN, Osteoarthritis, PADMA, CAD, Remote TIA, Infrarenal AAA Nutrition History: Energy Intake: Fair 50-75 % Food and Nutrient History: This television script writer met with pt, pt was sitting upright in chair next to bedside. Pt reports appetite has been pretty good lately. Prior to admit he states appetite was also good. Typically he eats 3 meals/day with no snacks. Breakfast consists of toast, oatmeal, and coffee. Luch is a sandwich or sometimes soup. Dinner is lasagna or a typical evening meal of some sort. He reported he ate 70% of his breakfast this morning 08/06 and was waiting to order lunch. Pt denies any constipation or diarrhea, abd pain, or N/V. Pt has PEG tube but is not currently using it. Vitamin/Herbal Supplement Use: Pt reports taking Boost at home the past couple months. Pt reported taking AREDS for eyes, though not recently. Food Allergy: (None) Anthropometrics: Height: 167.6 cm (5' 6) Weight: 65.3 kg (143 lb 15.4 oz) BMI (Calculated): 23.25 IBW/kg (Dietitian Calculated): 64.5 kg Percent of IBW: 101 % Weight History: Pt reports no major wt changes recently. His UBW is 144lbs which he states he weighed [address] Wt Readings from Last 24 Encounters: 08/06/25 65.3 kg (143 lb 15.4 oz) 08/04/25 65.3 kg (144 lb) 07/31/25 65.2 kg (143 lb 12.8 oz) 07/17/25 65.7 kg (144 lb 12.8 oz) 05/10/25 66.2 kg (146 lb) 05/10/25 66.2 [...] 11/05/23 70.9 kg (156 lb 6.4 oz) 11/01/23 71.9 kg (158 lb 9.6 oz) 10/06/23 72.1 kg (159 lb) 09/28/23 72.1 kg (159 lb) 08/06/23 71.7 kg (158 lb) 07/22/23 72.6 kg (160 lb) 06/21/23 72.2 kg (159 lb 4 oz) Weight Change %: Significant Weight Loss: No Nutrition Focused Physical Exam Findings: Subcutaneous Fat Loss: Orbital Fat Pads: Mild-Moderate (slight dark circles and slight hollowing) Buccal Fat Pads: Mild-Moderate (flat cheeks, minimal bounce) Triceps: Mild-Moderate (less than ample fat tissue) Ribs: Defer Muscle Wasting: Temporalis: Severe (hollowed scooping depression) Pectoralis (Clavicular Region): Mild-Moderate (some protrusion of clavicle) Deltoid/Trapezius: Well nourished (rounded appearance at arm, shoulder, neck) Interosseous: Mild-Moderate (slightly depressed area between thumb and forefinger) Trapezius/Infraspinatus/Supraspinat us (Scapular Region): Well nourished (bones not prominent, muscle taut) Quadriceps: Mild-Moderate (mild depression on inner and outer thigh) Gastrocnemius: Mild-Moderate (not well developed muscle) Edema: Edema: none Physical Findings: Skin: Positive (Per flowsheet hx - redness to coccyx) Nutrition Significant Labs: CBC Trend: Results from last 7 days Lab Units 08/04/25 1451 08/04/25 0837 WBC AUTO x10*3/uL 6.8 6.9 RBC AUTO x10*6/uL 4.00* 3.96* HEMOGLOBIN g/dL 12.4* 12.3* HEMATOCRIT % 37.1* 38.3* MCV fL 93 97 PLATELETS AUTO x10*3/uL 255 224 , Renal Lab Trend: Results from last 7 days Lab Units 08/04/25 1451 08/04/25 0837 POTASSIUM mmol/L 4.1 4.0 SODIUM mmol/L 143 142 MAGNESIUM mg/dL -- 1.76 EGFR mL/min/1.73m*2 86 83 BUN mg/dL 12 15 CREATININE mg/dL 0.77 0.84 , Vit D: Lab Results Component Value Date VITD25 18 (L) 05/12/2025 , Vit B12: Lab Results Component Value Date [id number] 283 05/12/2025 , Folate: Lab Results Component Value Date FOLATE >24.0 11/20/2024 Nutrition Specific Medications: Scheduled medications Scheduled Medications[1] Continuous medications Continuous Medications[2] PRN medications PRN Medications[3] I/O: Last BM Date: 08/06/25; Stool Appearance: Formed (08/06/25 1200) Dietary Orders (From admission, onward) Start Ordered 08/04/25 8255 May Participate in Room Service ( ROOM SERVICE MAY PARTICIPATE) Once Question: . Answer: Yes 08/04/25 9594 08/04/252216 Adult diet Regular; Easy to chew; Mild thick 2 Diet effective now Question Answer Comment Diet type Regular Texture Easy to chew Fluid consistency Mild thick 2 08/04/252215 Estimated Needs: Total Energy Estimated Needs in 24 hours (kCal): (2208-8594) Method for Estimating Needs: MSJ = 1261 x 1.2-1.3 Total Protein Estimated Needs in 24 Hours (g): (77-83) Method for Estimating 24 Hour Protein Needs: 1.2-1.3 g/kg x IBW Method for Estimating 24 Hour Fluid Needs: per provider Nutrition Diagnosis Malnutrition Diagnosis Patient has Malnutrition Diagnosis: Yes Diagnosis Status: New Malnutrition Diagnosis: Moderate malnutrition related to acute disease or injury Related to: multiple recent falls As Evidenced by: areas of subcutaneous fat loss and muscle wasting Nutrition Interventions/Recommendations Nutrition prescription for oral nutrition Nutrition Recommendations: Individualized Nutrition Prescription Provided for : 1. Diet per trauma team. Nutrition Interventions/Goals: Goal: Regular Diet Education Documentation No documentation found. N/A Nutrition Monitoring and Evaluation Intake / Amount of food: Consumes at least 75% or more of meals/snacks/supplements Goal Status: New goal(s) identified Time Spent (min): 60 minutes [1] acetaminophen, 975 mg, oral, q8h [Held by provider] aspirin, 81 mg, oral, Daily cholecalciferol, 125 mcg, oral, Daily escitalopram, 5 mg, oral, Daily folic acid, 1 mg, oral, Daily levETIRAcetam, 500 mg, oral, BID metoprolol tartrate, 25 mg, oral, BID pantoprazole, 40 mg, oral, Nightly polyethylene glycol, 17 g, oral, Daily sennosides-docusate sodium, 2 tablet, oral, BID [2] [3] PRN medications: oxygen Cosigned by Sharon Rivera RDN, LD at 08/06/2025 3:19 PM EDT [facility] 08-06-2025 Consult note Associated Order (s): IP CONSULT TO NUTRITION SERVICES Nutrition Initial Assessment: Nutrition Assessment Reason for Assessment: Admission nursing screening Patient is a 89 y.o. male s/p fall 08/04 when getting out of bed. Pt. [place] weak and legs gave out when getting up 08/04. Went to osh, CT head and cervical spine obtained. Injuries: right parafalcine SDH, resolution of previous right SAH. Transferred to [facility] for further trauma and NSGY eval PMHx: GERD, HTN, Osteoarthritis, PADMA, CAD, Remote TIA, Infrarenal AAA Nutrition History: Energy Intake: Fair 50-75 % Food and Nutrient History: This television script writer met with pt, pt was sitting upright in chair next to bedside. Pt reports appetite has been pretty good lately. Prior to admit he states appetite was also good. Typically he eats 3 meals/day with no snacks. Breakfast consists of toast, oatmeal, and coffee. Luch is a sandwich or sometimes soup. Dinner is lasagna or a typical evening meal of some sort. He reported he ate 70% of his breakfast this morning 08/06 and was waiting to order lunch. Pt denies any constipation or diarrhea, abd pain, or N/V. Pt has PEG tube but is not currently using it. Vitamin/Herbal Supplement Use: Pt reports taking Boost at home the past couple months. Pt reported taking AREDS for eyes, though not recently. Food Allergy: (None) Anthropometrics: Height: 167.6 cm (5' 6) Weight: 65.3 kg (143 lb 15.4 oz) BMI (Calculated): 23.25 IBW/kg (Dietitian Calculated): 64.5 kg Percent of IBW: 101 % Weight History: Pt reports no major wt changes recently. His UBW is 144lbs which he states he weighed [address] [place]. Wt Readings from Last 24 Encounters: 08/06/25 65.3 kg (143 lb 15.4 oz) 08/04/25 65.3 kg (144 lb) 07/31/25 65.2 kg (143 lb 12.8 oz) 07/17/25 65.7 kg (144 lb 12.8 oz) 05/10/25 66.2 kg (146 lb) 05/10/25 66.2 [...] 11/05/23 70.9 kg (156 lb 6.4 oz) 11/01/23 71.9 kg (158 lb 9.6 oz) 10/06/23 72.1 kg (159 lb) 09/28/23 72.1 kg (159 lb) 08/06/23 71.7 kg (158 lb) 07/22/23 72.6 kg (160 lb) 06/21/23 72.2 kg (159 lb 4 oz) Weight Change %: Significant Weight Loss: No Nutrition Focused Physical Exam Findings: Subcutaneous Fat Loss: Orbital Fat Pads: Mild-Moderate (slight dark circles and slight hollowing) Buccal Fat Pads: Mild-Moderate (flat cheeks, minimal bounce) Triceps: Mild-Moderate (less than ample fat tissue) Ribs: Defer Muscle Wasting: Temporalis: Severe (hollowed scooping depression) Pectoralis (Clavicular Region): Mild-Moderate (some protrusion of clavicle) Deltoid/Trapezius: Well nourished (rounded appearance at arm, shoulder, neck) Interosseous: Mild-Moderate (slightly depressed area between thumb and forefinger) Trapezius/Infraspinatus/Supraspinat us (Scapular Region): Well nourished (bones not prominent, muscle taut) Quadriceps: Mild-Moderate (mild depression on inner and outer thigh) Gastrocnemius: Mild-Moderate (not well developed muscle) Edema: Edema: none Physical Findings: Skin: Positive (Per flowsheet hx - redness to coccyx) Nutrition Significant Labs: CBC Trend: Results from last 7 days Lab Units 08/04/25 1451 08/04/25 0837 WBC AUTO x10*3/uL 6.8 6.9 RBC AUTO x10*6/uL 4.00* 3.96* HEMOGLOBIN g/dL 12.4* 12.3* HEMATOCRIT % 37.1* 38.3* MCV fL 93 97 PLATELETS AUTO x10*3/uL 255 224 , Renal Lab Trend: Results from last 7 days Lab Units 08/04/25 1451 08/04/25 0837 POTASSIUM mmol/L 4.1 4.0 SODIUM mmol/L 143 142 MAGNESIUM mg/dL -- 1.76 EGFR mL/min/1.73m*2 86 83 BUN mg/dL 12 15 CREATININE mg/dL 0.77 0.84 , Vit D: Lab Results Component Value Date VITD25 18 (L) 05/12/2025 , Vit B12: Lab Results Component Value Date [id number] 283 05/12/2025 , Folate: Lab Results Component Value Date FOLATE >24.0 11/20/2024 Nutrition Specific Medications: Scheduled medications Scheduled Medications[1] Continuous medications Continuous Medications[2] PRN medications PRN Medications[3] I/O: Last BM Date: 08/06/25; Stool Appearance: Formed (08/06/25 1200) Dietary Orders (From admission, onward) Start Ordered 08/04/252354 May Participate in Room Service ( ROOM SERVICE MAY PARTICIPATE) Once Question: . Answer: Yes 08/04/25235308/04/252216 Adult diet Regular; Easy to chew; Mild thick 2 Diet effective now Question Answer Comment Diet type Regular Texture Easy to chew Fluid consistency Mild thick 2 08/04/252215 Estimated Needs: Total Energy Estimated Needs in 24 hours (kCal): (1250-2187) Method for Estimating Needs: MSJ = 1261 x 1.2-1.3 Total Protein Estimated Needs in 24 Hours (g): (77-83) Method for Estimating 24 Hour Protein Needs: 1.2-1.3 g/kg x IBW Method for Estimating 24 Hour Fluid Needs: per provider Nutrition Diagnosis Malnutrition Diagnosis Patient has Malnutrition Diagnosis: Yes Diagnosis Status: New Malnutrition Diagnosis: Moderate malnutrition related to acute disease or injury Related to: multiple recent falls As Evidenced by: areas of subcutaneous fat loss and muscle wasting Nutrition Interventions/Recommendations Nutrition prescription for oral nutrition Nutrition Recommendations: Individualized Nutrition Prescription Provided for : 1. Diet per trauma team. Nutrition Interventions/Goals: Goal: Regular Diet Education Documentation No documentation found. N/A Nutrition Monitoring and Evaluation Intake / Amount of food: Consumes at least 75% or more of meals/snacks/supplements Goal Status: New goal(s) identified Time Spent (min): 60 minutes [1] acetaminophen, 975 mg, oral, q8h [Held by provider] aspirin, 81 mg, oral, Daily cholecalciferol, 125 mcg, oral, Daily escitalopram, 5 mg, oral, Daily folic acid, 1 mg, oral, Daily levETIRAcetam, 500 mg, oral, BID metoprolol tartrate, 25 mg, oral, BID pantoprazole, 40 mg, oral, Nightly polyethylene glycol, 17 g, oral, Daily sennosides-docusate sodium, 2 tablet, oral, BID [2] [3] PRN medications: oxygen Cosigned by Sharon Rivera RDN, LD at 08/06/2025 3:19 PM EDT Associated Order(s): Inpatient consult to Geriatric Medicine Images from the original note were not included. Inpatient consult to Geriatric Medicine Consult performed by: Selam Jerry MD Consult ordered by: Elaine Madrigal APRN-CAMI Primary Team: Trauma Admit Date: 08/04/2025 Emergency Contact: Extended Emergency Contact Information Primary Emergency Contact: Diya Cameron Address: [address] Mobile Relation: Spouse Certified Fraud Examiner needed? No Reason For Consult: medical management and med review History Of Present Illness: Fawn Campos is a 89 y.o. 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 Per ED notes - At home, reached for walker, lost balance and fell backward. Hit head, no LOC. Weaker since return home from SNF. Called EMS. Presented to [facility] ED. Vitals stable. EKG no ischemic changes. CT showing new R parafalcine subdural hematoma. Transfer to [facility]. At [facility] vitals stable. Admitted to trauma. NSGY consulted - BP goal <160, resume ASA 10/17. Last Asa 08/03. Started on Keppra 500 BID Labs CBC: 04/02/38/224 (baseline hb 10-11) BMP unremarkable, Cr 0.8 (baseline 0.5-0.8 Trop neg, UA negative Subsequent LFT also normal CTH: Right parafalcine subdural hematoma CT cervical spine: no fx XR hip: Mildly displaced fractures through the right superior and right inferior pubic rami with callus formation suggestive of subacute chronicity. Remote left inferior pubic ramus as well. Repeat CTH stability scan:Stable appearance of mixed density right parafalcine subduralhematoma without significant mass effect or midline shift. No new or enlarging intracranial hemorrhage. 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 Managed non operatively. Failed speech eval and dobhoff placed, dispo to SNF. Seen by kaela who recommended orthostatic vitals, and recommended holding home BP meds (alfuzosin, amlodipine, benzapril and amitriptiline. Vit D 18 recommended high dose supplementation. And B12 282 recommended supplementation. DEXA scan outpt as hx of alendronate. At [facility] and then went home end of Jun Due to dysphagia liquids and solids, PEG [facility] Weight 65 kg was 66 kg in April. On the floor HR 50s-60s BP 140s-150s/60s satting 98% RA PO 120 UOP 250 and no stool Received tylenol x2 History per patient: Pt says was getting out of bed 0600 yesterday to urinate (was anxious to go, typically has 3-4x nocturia), reached for walker and was trying to move quickly when fell and hit his head on the wall by the bed no LOC. No recent falls, doing well at home walking with PT, trying to use cane. Does not get dizzy when stands up quickly. After fall, came and helped him to bed and called EMS This morning feels well, no pain For PEG not using presently for about 3 weeks just flush daily, was supposed to have repeat swallow by PCP to determine PEG removal. No longer getting Jevity. Currently has thickened nectar liquids and crush pills History per family/caregiver: Spoke with Diya. Misstepped and tangled up with walker. Not very steady. Cannot walk alone. Fell and hit side. [facility] - reached for something and lost balance Has been home for about 3 weeks Frequent nocturia - prostate enlargement, was supposed to see urology, was on flomax prior but did not help What matters most to the patient: Getting strength back Prior to Admission Meds Prior to Admission Medications Prescriptions Last Dose Informant Patient Reported? Taking? acetaminophen (Tylenol) 325 mg tablet Spouse/Significant Other No No Si tablets (650 mg) by nasogastric tube route every 6 hours. Patient not taking: Reported on 08/04/2025 acetaminophen 500 mg powder in packet Spouse/Significant Other Yes No Sig: Take 1,000 mg by mouth every 6 hours. Patient taking differently: Take 1,000 mg by mouth every 6 hours if needed (pain). amitriptyline (Elavil) 10 mg tablet 08/03/2025 Bedtime Spouse/Significant Other No Yes Sig: Take 1 tablet (10 mg) by mouth once daily at bedtime. aspirin 81 mg EC tablet 08/03/2025 Morning Spouse/Significant Other Yes Yes Sig: Take 1 tablet (81 mg) by mouth once daily. benazepril (Lotensin) 40 mg tablet 08/03/2025 Morning Spouse/Significant Other No Yes Sig: Take 1 tablet (40 mg) by mouth once daily. cholecalciferol (Vitamin D-3) 125 mcg (5,000 units) tablet Spouse/Significant Other No No Sig: Take 1 tablet (125 mcg) by mouth once daily. Patient not taking: Reported on 08/04/2025 doxazosin (Cardura) 4 mg tablet 08/03/2025 Bedtime Spouse/Significant Other Yes Yes Sig: Take 1 tablet (4 mg) by mouth once daily. Patient taking differently: Take 1 tablet (4 mg) by mouth once daily at bedtime. escitalopram (Lexapro) 5 mg tablet 08/03/2025 Morning Spouse/Significant Other No Yes Sig: Take 1 tablet (5 mg) by mouth once daily. folic acid (Folvite) 1 mg tablet 08/03/2025 Morning Spouse/Significant Other No Yes Sig: Take 2 tablets (2 mg) by mouth once daily. Patient taking differently: Take 1 tablet (1 mg) by mouth once daily. methotrexate (Trexall) 2.5 mg tablet Not Taking Spouse/Significant Other Yes No Sig: Take 8 tablets (20 mg total) by mouth 1 (one) time per week. On Sundays Patient not taking: Reported on 08/04/2025 metoprolol tartrate (Lopressor) 25 mg tablet 08/03/2025 Evening Spouse/Significant Other No Yes Sig: Take 1 tablet (25 mg) by mouth 2 times a day. omeprazole (PriLOSEC) [address] capsule 08/03/2025 Bedtime Spouse/Significant Other No Yes Sig: Take 1 capsule (40 mg) by mouth once daily in the morning. Take before meals. Patient taking differently: Take 1 capsule (40 mg) by mouth once daily at bedtime. pravastatin (Pravachol) 40 mg tablet 08/03/2025 Bedtime Spouse/Significant Other No Yes Sig: Take 1 tablet (40 mg) by mouth once daily at bedtime. Facility-Administered Medications: None Per not currently taking vitamin D as cannot crush Current Meds in Hospital Current Medications[1] The patient's outpatient electronic medical record (EMR) is reviewed, notable information includes see below. 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 Highest Level of Education: Post-Graduate Degree Community Resources: Home PT/OT [facility] [place]: No Current living environment: 2 story but lives on first floor, bathroom near bedroom, has shower chair Activities of Daily Living: Basic ADLs: (I= independent, A= assistance, D= dependent) Bathing: A, Dressing: A, Toileting: I, Transferring: I, Continence: A, Feeding: I Adamson Index: 3 Instrumental ADLs: (I= independent, A= assistance, D= dependent) Ability to use phone: I, Shopping: D, Cooking: D, Housekeeping: D, Laundry: D, Transportation: D, Medications: D, Handle Finances: A Jan Scale: 1 Allergies Patient has no known allergies. Review of Systems Review of System: Constitutional: -Night sweats/fever: None -Weight change: None has been stable Integumentary: L elbow healing laceration from fall at facility before left, does have L bedsore Ears, Nose, Throat: -Hearing loss: yes wears hearing aid Eyes: -Vision loss: bifocals No dentures Cardiovascular: -Chest Pain: None -Orthopnea: None -Paroxysmal nocturnal dyspnea: None -Edema: None Respiratory: -Dyspnea: None -Wheezing: None Gastrointestinal: -Appetite: good -Difficulty chewing/ swallowing: yes, -Heartburn: occasional -Bowels: last BM 2 days ago, no constipation meds Genitourinary: -Incontinence: Sometimes -Nocturia: 3-4x per night Musculoskeletal: -Mobility: walks with walker -Pain: occasional R hip pain Neurological: -Confusion: occasionally ( says pretty with it) -Falls: yes -Gait: some unsteadiness -Memory: Sometimes forgetful ( says not many memory concerns) -Tremor: occasionally in the morning Psychiatric: -Mood: good -Sleep: sleeps well except for nocturia Endocrine: No issues Hematologic/ Lymphatic: no issues Allergic/ Immunologic: No issues Documents on file and valid: Advance Directive/Living Will: Yes Health Care Power of Customer Service Teller: Yes Other: N/A Code Status: DNR Confusion Assessment Method (CAM) Not on file. [place] Cognitive Assessment (MoCA) Not on file. Geriatric Depression Scale (GDS) Not on file. Mini-Cog (Early Dementia Detection) Not on file. [place] Mini-Mental State Exam (MMSE) Not on file. Patient Health Questionnaire (PHQ-9) Not on file. Physical Exam Gen: NAD, alert and oriented, resting comfortably HEENT: PERRL, EOMI, no oral lesions, MMM Neck: supple, no masses Cardiac: RRR. Systolic murmur Resp: CTA b/l, no rales or ronchi Abd: soft, nontender to palpation, no HSM, normal bowel sounds, Peg in place MSK: Strength and ROM grossly intact b/l Neuro: CN 2-12 intact b/l, sensation to light touch intact Skin: No rash or bruising Lymph: No edema, SCD in place Vascular: Radial and pedal pulses 2+ b/l Psych: Normal mood and affect Last Recorded Vitals 08/04/2025 5:00 PM 08/04/2025 7:30 PM 08/04/2025 8:20 PM 08/04/2025 8:30 PM 08/04/2025 10:09 PM 08/05/2025 12:06 AM 08/05/2025 3:33 AM Vitals Systolic 132 146 150 158 148 152 157 Diastolic 66 96 67 75 66 76 62 BP Location Right arm Right arm Right arm Right arm Heart Rate 54 64 97 68 62 58 68 Temp 36.7 C (98.1 F) 36.3 C (97.3 F) 36.5 C (97.7 F) 37 C (98.6 F) Resp 10 10 17 19 18 17 Vitals: 08/04/25 1434 Weight: 65.3 kg (144 lb) Confusion Assessment Method(CAM) for diagnosis of [...] delirium still possible if (4) information incomplete) Relevant Results Lab Results Component Value Date TSH 4.88 (H) 05/12/2025 [id number] 283 05/12/2025 VITD25 18 (L) 05/12/2025 Results from last 7 days Lab Units 08/04/25 1451 08/04/25 0837 WBC AUTO x10*3/uL 6.8 6.9 HEMOGLOBIN g/dL 12.4* 12.3* HEMATOCRIT % 37.1* 38.3* ALT U/L 16 -- AST U/L 15 -- SODIUM mmol/L 143 142 POTASSIUM mmol/L 4.1 4.0 CHLORIDE mmol/L 105 107 CREATININE mg/dL 0.77 0.84 BUN mg/dL 12 15 CO2 mmol/L 30 [address] chest abdomen pelvis w IV contrast Narrative: Interpreted By: Radha Raza and Chaparro Fernandez STUDY: CT CHEST ABDOMEN PELVIS W IV CONTRAST; 08/04/2025 3:18 pm INDICATION: Signs/Symptoms:fall, SDH new, now new R hip pain COMPARISON: CT chest abdomen pelvis 05/10/2025 ACCESSION NUMBER(S): [id number] ORDERING CLINICIAN: KATHERINE POTTS TECHNIQUE: CT of the chest, abdomen, and pelvis was performed. Contiguous axial images were obtained at 5 mm slice thickness through the chest, and at 3 mm through the abdomen and pelvis. Coronal and sagittal reconstructions at 3 mm slice thickness were performed. 90 ML of Omnipaque 350 was administered intravenously without immediate complication. FINDINGS: CHEST: LUNG/PLEURA/LARGE AIRWAYS: No air space opacity, focal consolidation, pleural effusion/hemothorax, or pneumothorax are appreciated. There are no discrete pulmonary nodules. VESSELS: No traumatic aortic injury is appreciated within the limitations of this non-EKG gated study. The thoracic aorta is of normal course and caliber. Main pulmonary artery and its branches are normal in caliber. Mild coronary artery calcifications are seen.The study is not optimized for evaluation of coronary arteries. HEART: The heart is normal in size. There is no pericardial effusion. MEDIASTINUM AND NATALIA: No pneumomediastinum, abnormal mediastinal fluid collection or mediastinal hematoma are appreciated. No mediastinal, hilar or biaxillary adenopathy is present. The esophagus is normal in course and caliber. CHEST WALL AND LOWER NECK: Multiple subacute fractures of the anterior ribs. No acute fracture or dislocation of the included osseous structures are appreciated. No suspicious osseous lesions are identified. The thoracic wall soft tissues are within normal limits. Reverse left total shoulder arthroplasty. ABDOMEN: LIVER: No focal perfusion abnormality of the liver is appreciated to suggest contusion or laceration. There is no subcapsular hematoma, no perihepatic fluid collection. The liver is normal in size and appearance. GALLBLADDER: The gallbladder is nondistended without evidence of radiopaque stone. BILE DUCTS: The intahepatic and extrahepatic bile ducts are not dilated. PANCREAS: Within normal limits SPLEEN: No parenchymal perfusion deficit of the spleen is appreciated to suggest contusion or laceration. There is no subcapsular hematoma, no perisplenic fluid collection. Stable appearing hypodense lesions ADRENAL GLANDS: The bilateral adrenal glands are unremarkable in appearance. KIDNEYS AND URETERS: No parenchymal perfusion deficit is appreciated in bilateral kidneys to suggest contusion or laceration. There is no subcapsular hematoma, no perinephric fluid collection. No hydroureteronephrosis or nephroureterolithiasis is present. PELVIS: BLADDER: The urinary bladder appears within normal limits. REPRODUCTIVE ORGANS: No pelvic masses. No significant free fluid. BOWEL: Interval placement peg tube when compared to prior 05/10/2025. The stomach is within normal limits. The small bowel is normal in caliber without evidence of focal wall thickening or obstruction. There is no evidence of focal wall thickening or dilatation of the large bowel. The appendix is normal. VESSELS: 4.9 x 3.6 cm infrarenal aortic aneurysm with eccentric mural thrombus (series 301, image 57). 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 1.5 cm x 1.3 cm right common iliac artery aneurysm. The aorta and IVC are within normal limits. The principal vasculature of the abdomen and pelvis is patent. There is moderate atherosclerotic calcification of the abdominal aorta and its branches. PERITONEUM/RETROPERITONEUM/LYMPH NODES: There is no evidence of intra- or retroperitoneal hematoma. There is no free or loculated fluid collection, no free intraperitoneal air. No abdominopelvic lymphadenopathy is present. BONES AND ABDOMINAL WALL: Acute insufficiency fracture in the right sacral ala (series 201, image 149). Subacute to remote appearing fractures through the right superior and right inferior pubic rami with callus formation. Left hip arthroplasty intact. Severe right hip osteoarthrosis. Diffuse osteopenia. Postoperative changes in the anterior abdominal wall. Impression: CHEST 1. No acute traumatic injury within the chest. 2. Multiple subacute fractures of several anterior and right anterolateral ribs with callus formation, new compared to 05/10/2025 CT. ABDOMEN - PELVIS 1. Diffuse osteopenia, with likely acute insufficiency fracture of the right sacral ala. 2. Multiple subacute to remote appearing fractures within the right hemipelvis, as described. 3. Stable appearance of large infrarenal aortic aneurysm measuring up to 4.9 cm. 4. Additional chronic findings as described above. I personally reviewed the images/study and I agree with Jim Mayfield MD's findings as stated. This study was interpreted at [place], [place]. MACRO: None Signed by: Radha Raza 08/04/2025 5:23 PM Dictation workstation: [id number] CT lumbar spine retrospective reconstruction protocol, CT thoracic spine retrospective reconstruction protocol Narrative: Interpreted By: Gracie Carpenter and Liu Scott STUDY: CT THORACIC SPINE RETROSPECTIVE RECONSTRUCTION PROTOCOL; CT LUMBAR SPINE RETROSPECTIVE RECONSTRUCTION PROTOCOL; 08/04/2025 3:18 pm INDICATION: Signs/Symptoms:fall. COMPARISON: CT thoracic and lumbar spine 05/10/2025 ACCESSION NUMBER(S): [id number]; [id number] ORDERING CLINICIAN: KATHERINE POTTS TECHNIQUE: Multiplanar reformatted images of the thoracic and lumbar spine were reconstructed from source data of concurrent CT chest/abdomen/pelvis acquisition. FINDINGS: CT THORACIC SPINE: PARASPINAL SOFT TISSUES: No paravertebral fluid collection or significant edema. ALIGNMENT: No traumatic spondylolisthesis or traumatic facet widening. VERTEBRAE: No acute fracture. Mild multilevel vertebral body height loss. SPINAL CANAL/INTERVERTEBRAL DISCS: No high-grade spinal canal stenosis. Mild multilevel disc space height loss. CT LUMBAR SPINE: This report assumes 5 non-rib bearing lumbar vertebral bodies. The lowest intervertebral disc will be labeled L5-S1. PARASPINAL SOFT TISSUES: No paravertebral fluid collection or significant edema. ALIGNMENT: No traumatic spondylolisthesis or traumatic facet widening. There is S shaped curvature of the thoracic spine. VERTEBRAE: No acute fracture. Mild multilevel vertebral body height loss. SPINAL CANAL/INTERVERTEBRAL DISCS: At T12-L1, there is a remote appearing, posteriorly projecting osteophyte versus calcified intervertebral disc, with ventral indentation of the thecal sac and resulting in mild/moderate spinal canal stenosis. From L1-L2 through L5-S1 there is broad-based posterior disc bulge resulting in multilevel mild to moderate spinal canal stenosis at these levels. Multilevel disc space height loss at L1-L2 through L5-S1 with vacuum disc phenomenon at L3-L4, L4-L5, and L5-S1. NEURAL FORAMINA: Mild/moderate neural foraminal stenosis at right-sided L2-L3, L3-L4, and L4-L5 neural foramina due to combination of disc osteophyte complex, facet osteoarthrosis, and levocurvature of the lumbar spine at these levels. There is redemonstration of a lucency through the inferior aspect of the right sacral wing (Series 307, Image 47) and (Series 307, Image 45), present on CT lumbar spine from 05/10/2025 and likely reflecting remote fracture See separately dictated same-day CT chest abdomen pelvis. Impression: 1. No acute fracture or traumatic malalignment of the thoracic or lumbar spine. 2. Lucency through the inferior right sacral wing was present on prior CT lumbar spine from 05/10/2025 and likely reflects a nonacute sacral insufficiency fracture. 3. See separately dictated CT chest abdomen pelvis. I personally reviewed the images/study and I agree with the findings as stated by resident physician Ramiro Weber MD. This study was interpreted at [facility], [place], [place]. MACRO: None. Signed by: Gracie Carpenter 08/04/2025 4:13 PM Dictation workstation: [id number] ECG 12 lead Normal sinus rhythm Poor R-wave progression ; consider anterior infarct, lead placement, or normal variant Abnormal ECG When compared with ECG of 30-JUL-2025 15:00, (unconfirmed) Right bundle branch block is no longer Present CT head wo IV contrast Narrative: Interpreted By: Gracie Carpenter and Gus Rubio STUDY: CT HEAD WO IV CONTRAST; 08/04/2025 3:18 pm INDICATION: Signs/Symptoms:SDH stability scan. COMPARISON: CT head 08/04/[address] head 05/10/2025 ACCESSION NUMBER(S): [id number] ORDERING CLINICIAN: KATHERINE POTTS TECHNIQUE: Noncontrast axial CT scan of head was performed. Angled reformats in brain and bone windows were generated. The images were reviewed in bone, brain, blood and soft tissue windows. FINDINGS: There is overall stable appearance of the mixed density subdural collection in the right parafalcine region measuring estimated 3.6 x 0.8 cm (Series 205, Image 65) and (Series 206, Image 34). There is decreased conspicuity of subtle hyperattenuation along the left anterior frontal lobe (Series 201, Image 19) in comparison to remote CT examination from 05/10/2025. There is no new or enlarging extra-axial fluid collection. No significant mass effect, midline shift, or hydrocephalus. No acute loss of the callaway-white differentiation. No intraparenchymal hemorrhage. No calvarial fracture or sizable scalp hematoma. Paranasal sinuses and mastoids are clear. Evidence of bilateral lens surgery. Impression: Stable appearance of mixed density right parafalcine subdural hematoma without significant mass effect or midline shift. No new or enlarging intracranial hemorrhage. I personally reviewed the images/study and I agree with the findings as stated by resident physician Ramiro Weber MD. This study was interpreted at [facility], [place], [place]. MACRO: None Signed by: Gracie Carpenter 08/04/2025 4:05 PM Dictation workstation: [id number] XR hip right with pelvis when performed 2 or 3 views, XR femur right 2+ views Narrative: Interpreted By: Clement Estevez, STUDY: XR FEMUR RIGHT 2+ VIEWS; XR HIP RIGHT WITH PELVIS WHEN PERFORMED 2 OR 3 VIEWS; ; 08/04/2025 3:00 pm INDICATION: Signs/Symptoms:fall r hip pain; Signs/Symptoms:r hip ppain fall. COMPARISON: None. ACCESSION NUMBER(S): [id number]; [id number] ORDERING CLINICIAN: KATHERINE POTTS FINDINGS: There is a mildly displaced fracture through the right superior pubic ramus. There is a mild displaced fracture through the right inferior pubic ramus. Callus formation sclerosis at this location suggestive of a subacute injury. There is a remote fracture through the left inferior pubic ramus as well with sclerosis. No other fracture seen. There is no dislocation. There is severe joint space narrowing with osteophytosis across the right hip. Left total hip arthroplasty present. Extensive vascular calcifications present. Impression: Mildly displaced fractures through the right superior and right inferior pubic rami with callus formation suggestive of subacute chronicity. Remote left inferior pubic ramus as well. No other fracture seen about the right hip. Severe right hip osteoarthritis. MACRO: None Signed by: Clement Estevez 08/04/2025 3:05 PM Dictation workstation: [id number] CT head wo IV contrast Narrative: Interpreted By: Vinicius Dobbs, STUDY: CT HEAD WO IV CONTRAST; 08/04/2025 8:22 am INDICATION: Signs/Symptoms:fall. COMPARISON: 05/10/2025 ACCESSION NUMBER(S): [id number] ORDERING CLINICIAN: SANTIAGO MENENDEZ TECHNIQUE: Sequential trans axial images were obtained . FINDINGS: INTRACRANIAL: There is kbbe-hv-jhxtukfo prominence of the cortical sulci indicating atrophy. Additionally there has been resolution of greater CSF prominence at the right convexity compared to the prior examination probably due to resolution of the hygroma or liquified subdural hematoma. There is moderate ventriculomegaly, again consistent with atrophy. Gyzt-sd-mmqjmorh decreased attenuation of the periventricular and long tracks of the white matter most consistent with gliosis from arterial disease. Of note is increased attenuation along the right aspect of the falx anteriorly. This measures up to 3.5 cm in length and 8 mm in thickness best seen on sagittal image 40 of series 9. Small subarachnoid hemorrhage at the right parietal-occipital region on the prior examination has resolved. A small foci of attenuation along the lateral margin of right frontal lobe on image 34 of series 2 is similar to the previous examination and was suspected to be subarachnoid hemorrhage, but more likely artifactual given the time interval. EXTRACRANIAL: Visualized paranasal sinuses and mastoids are clear. There is slight concavity of the floor of the anterior fossa on the right, again suspected to be a fracture as on the prior exam. The calvarium otherwise is intact. Moderate atherosclerotic calcification at the carotid siphon. Impression: Right parafalcine subdural hematoma as described. Resolution of focal subarachnoid hemorrhage at the right parietal-occipital region previously. Foci of attenuation at the right frontal lobe is probably artifactual, but attention at follow-up recommended as this was suspected to be hemorrhage on the prior exam. MACRO: Vinicius Dobbs discussed the significance and urgency of this critical finding by [employer] secure chat with SANTIAGO MENENDEZ on 08/04/2025 at 9:10 am. (-RCF-) Findings: See findings. Signed by: Vinicius Dobbs 08/04/2025 9:12 AM Dictation workstation: [id number] CT cervical spine wo IV contrast Narrative: Interpreted By: Henry Kenny, STUDY: CT CERVICAL SPINE WO IV CONTRAST; 08/04/2025 8:22 am INDICATION: Signs/Symptoms:fall. COMPARISON: None. ACCESSION NUMBER(S): [id number] ORDERING CLINICIAN: SANTIAGO MENENDEZ TECHNIQUE: Axial CT images of the cervical spine are obtained. Axial, coronal and sagittal reconstructions are provided for review. Noncontrast CT limited for soft disc. FINDINGS: Fractures: There is no evidence for an acute fracture of the cervical spine. Vertebral Alignment: Minimal scoliosis without traumatic subluxation. Craniocervical Junction: The odontoid process and craniocervical junction are intact. Vertebrae/Disc Spaces: The cervical vertebral body heights are intact. Multilevel cervical degenerative changes noted. 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 Prevertebral/Paraspinal Soft Tissues: The prevertebral and paraspinal soft tissues are unremarkable. Significant right apical pleural thickening. Carotid arterial calcifications fnwj-zntvezh-hbvs-right. Impression: No evidence for an acute fracture or subluxation of the cervical spine. Mild scoliosis with mild multilevel cervical degenerative change. MACRO: None Signed by: Henry Kenny 08/04/2025 8:39 AM Dictation workstation: [id number] XR chest 1 view Narrative: STUDY: Chest Radiograph; 08/04/2025, 0751 INDICATION: Weakness. COMPARISON: XR chest 05/10/2025, CT chest 05/10/2025, XR chest 11/15/2023. ACCESSION NUMBER(S): [id number] ORDERING CLINICIAN: SANTIAGO MENENDEZ TECHNIQUE: Frontal chest was obtained at 0751 hours. FINDINGS: CARDIOMEDIASTINAL SILHOUETTE: Cardiomediastinal silhouette is normal in size and configuration. LUNGS: Calcified granuloma in the right midlung zone. Hazy opacity in the right midlung zone, new compared to prior. Linear atelectasis in the left base. ABDOMEN: No remarkable upper abdominal findings. BONES: No acute osseous changes. Impression: Hazy opacity in the right midlung zone, new compared to prior. Correlate clinically for possible pneumonia. Signed by Nguyễn Saucedo MD Head/Brain Imaging === Results for orders placed during the hospital encounter of 08/04/25 === CT head wo IV contrast [POT004] 08/04/2025 Status: Normal Stable appearance of mixed density right parafalcine subdural hematoma without significant mass effect or midline shift. No new or enlarging intracranial hemorrhage. I personally reviewed the images/study and I agree with the findings as stated by resident physician Ramiro Weber MD. This study was interpreted at [facility], [place], [place]. MACRO: None Signed by: Gracie Carpenter 08/04/2025 4:05 PM Dictation workstation: [id number] No results found for this or any previous visit. DATA: EKG: QTC Encounter Date: 08/04/25 ECG 12 lead Result Value Ventricular Rate 69 Atrial Rate 69 MO Interval 166 QRS Duration 92 QT Interval 404 QTC Calculation(Bazett) 432 P [place] 104 R [place] 11 T [place] 26 QRS Count 11 Q Onset 224 P Onset 141 P Offset 181 T Offset 426 QTC Fredericia 423 Narrative Normal sinus rhythm Poor R-wave progression ; consider anterior infarct, lead placement, or normal variant Abnormal ECG When compared with ECG of 30-JUL-2025 15:00, (unconfirmed) Right bundle branch block is no longer Present Anti-psychotics in 48 hours: None Opioids/Benzodiazepines in 48 hours: None Anticholinergics on board:Yes - amitriptyline Restraints:No Indwelling catheters:No Last BM: 2 days prior UO in 24 hours: 250 ml documented Activity in the past 24 hours: planned to work with PT Need for ambulatory devices: walker Assessment/Plan This is a/an 89 y.o. 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 Principal Problem: Head injury, initial encounter 1. Acute fall with SDH -differential includes orthostasis vs vs urinary urgency vs polypharmacy Plan: orthostatic vitals - orthostatic this AM, bolus given, hold BP meds and TCA outpt DEXA recommended given hx of being on alendronate but no prior DEXA Vit D and B12 levels check and replete pending value 2. Polypharmacy - on several home peripheral vasodilators that can cause orthostasis and hypotension (alfuzosin, benazepril, metoprolol) -Appears pt hypertension overtreated as ambulatory BP in 90s/100s systolic - amitryptyline and alfuzosin are anticholinergic and can cause sedation/ weakness/ hypotension - Please hold alfuzosin, metoprolol, benazepril and amitryptyline and do not resume on dispo 3. Nocturia 2/2 BPH -Saw urology 08/2023 for BPH, started on Alfuzosin andf timed voiding. Was on flomax prior but did not help per Plan: once orthostasis improves will discuss resumption of alpha juan - Tamsulosin appears to have least affect on systemic BP compared to Alfuzosin Monitor for urinary retention (bladder scan if no void 8 hr) 4. Dysphagia -Originally failed 05/14 swallow study, discharged with dobhoff, continued dyaphagia at SNF but improving on nectar thick liquids at home Plan: [employer] consult to see if diet can be advanced Care Transitions: -Recommended level for discharge: pending PT/Ot assess -Home going considerations: fall precautions -Primary care physician: Dr Don Barrera Goals of Care: -Health care power of contracts attorney: -Living will: yes Code status: DNR 4M AGE-FRIENDLY INITIATIVE: What matters most to patient: getting strength back Medications: careful with anticholinergic medications Mentation: A/O x 4 Mobility: with walker Geriatric medicine will continue to follow the patient. Thank you for allowing geriatric medicine to be involved in the care of your patient. Geriatric medicine consultation team is available during work hours Sunday through Sunday. For any emergency issues requiring immediate assistance over the weekend, please page Geriatrics pager [phone] Consult Billing Time Prep time on date of patient encounter(minutes):30 Time directly with patient/family/caregiver(minutes):5 0 Documentation time(minutes):30 TOTAL TIME(minutes):110 Selam Jerry MD I saw and evaluated the patient. I personally obtained the de jesus and critical portions of the history and physical exam or was physically present for de jesus and critical portions performed by the resident. I reviewed the resident s documentation and discussed the patient with the resident. I agree with the resident s medical decision making as documented in their note Patient seen and examined. He is alert, oriented to person, place or time. He is attentive. BP remains low. Recommend holding off BP meds, reassessing for resumption of BP meds Will need to monitor for urine retention Zahira Douglas MD [1] Current Facility-Administered Medications Medication Dose Route Frequency Provider Last Rate Last Admin acetaminophen (Tylenol) tablet 975 mg 975 mg oral q8h Gauri Ortiz PA-C 975 mg at 08/05/25 0515 amitriptyline (Elavil) tablet 10 mg 10 mg oral Nightly Gauri Ortiz PA-C [Held by provider] aspirin EC tablet 81 mg 81 mg oral Daily Gauri Ortiz PA-C cholecalciferol (Vitamin D-3) tablet 125 mcg 125 mcg oral Daily Gauri Ortiz PA-C escitalopram (Lexapro) tablet 5 mg 5 mg oral Daily Gauri Ortiz PA-C folic acid (Folvite) tablet 1 mg 1 mg oral Daily Gauri Ortiz PA-C levETIRAcetam (Keppra) 500 mg in sodium chloride (iso) IV 100 mL 500 mg intravenous BID Katherine Potts DO Stopped at 08/04/252147 metoprolol tartrate (Lopressor) tablet 25 mg 25 mg oral BID Gauri Ortiz PA-C 25 mg at 08/04/252208 oxyCODONE (Roxicodone) immediate release tablet 2.5 mg 2.5 mg oral q6h PRN Gauri Ortiz PA-C oxyCODONE (Roxicodone) immediate release tablet 5 mg 5 mg oral q6h PRN Gauri Ortiz PA-C oxygen (O2) therapy 1 Dose inhalation Continuous - O2/gases Gauri Ortiz PA-C pantoprazole (ProtoNix) EC tablet 40 mg 40 mg oral Nightly Gauri Ortiz PA-C 40 mg at 08/04/252208 polyethylene glycol (Glycolax, Miralax) packet 17 g 17 g oral Daily Gauri Ortiz PA-C sennosides-docusate sodium (Griselda-Colace) 8.6-50 mg per tablet 2 tablet 2 tablet oral BID Gauri Ortiz PA-C 2 tablet at 08/04/252208 [2] Past Medical History: Diagnosis Date Arthritis [...] VASECTOMY 40 years ago WISDOM TOOTH EXTRACTION Associated Order(s): Inpatient consult to Neurosurgery Images from the original note were not included. NEUROSURGERY CONSULT NOTE Date of Service: 08/04/2025 Attending Provider: Kelsey Patel MD Reason for Consultation: Inpatient consult to Neurosurgery Consult performed by: Enmanuel Melgoza MD Consult ordered by: DO Fawn Ramos Andres is being seen today for a consult requested by Kelsey Patel MD for SDH. Subjective History of Present Illness: Andres is a 89 y.o. male on day 0 of admission with H/o AAA, infrarenal aneurysm, HTN, HLD, CAD (on ASA), 04/2024 GLF w rSDH, 08/04 p/w GLF, CTH R frontal para falcine SDH, rCTH stable. Patient reports trying to get out of bed and falling and hitting his head wo head strike. He last took ASA 08/03 AM. Patient denied any weakness, numbness, vision changes, fevers or chills. Review of Systems 10 point ROS is obtained and negative except the ones mentioned in the HPI Social History He reports that he quit smoking about 63 years ago. His smoking use included cigarettes and pipe. He has been exposed to tobacco smoke. He has never used smokeless tobacco. He reports that he does not currently use alcohol. He reports that he does not use drugs. Medical History Medical History[1] Surgical History Surgical History[2] Objective VITALS (24H): Temperature: [36.6 C (97.8 F)] 36.6 C (97.8 F) Heart Rate: [54-66] 54 Respirations: [9-20] 10 BP: (132-173)/(64-82) 132/66 INTAKE/OUTPUT:No intake or output data in the 24 hours ending 08/04/251738 VENT SETTINGS: Blood pressure 132/66, pulse 54, resp. rate 10, height 1.676 m (5' 6), weight 65.3 kg (144 lb), SpO2 96%. No intake/output data recorded. No intake/output data recorded. Output by Drain (mL) 08/02/25 07 - 08/02/25 1859 08/02/25 190 - 08/03/25 0659 08/03/25 07 - 08/03/25 1859 08/03/25 1900 - 08/04/25 0659 08/04/25 07 - 08/04/25 173 Requested LDAs do not have output data documented. Exam: Constitutional: No acute distress Resp: breathing comfortably Cardio: well perfused GI: nondistended MSK: full range of motion Psych: appropriate Skin: no obvious lesions Neuro: Awake, A&Ox3 Cranial Nerves II-XII: PERRL, EOMI, Face symmetric, Facial SILT, Palate/Tongue midline and symmetric, shoulder shrugs symmetric, hearing intact to finger rubs bilaterally Motor: 5/5, Sensation: SILT throughout all extremities Medications Current Outpatient Medications Medication Instructions acetaminophen (TYLENOL) 650 mg, nasogastric tube, Every 6 hours scheduled acetaminophen 1,000 mg, Every 6 hours amitriptyline (ELAVIL) 10 mg, oral, Nightly aspirin 81 mg, Daily benazepril (LOTENSIN) 40 mg, oral, Daily cholecalciferol (VITAMIN D-3) 125 mcg, oral, Daily doxazosin (CARDURA) 4 mg, Daily escitalopram (LEXAPRO) 5 mg, oral, Daily folic acid (FOLVITE) 2 mg, oral, Daily [Paused] methotrexate (Trexall) 2.5 mg tablet 8 tablets, Once Weekly metoprolol tartrate (LOPRESSOR) 25 mg, oral, 2 times daily omeprazole (PRILOSEC) 40 mg, oral, Daily before breakfast pravastatin (PRAVACHOL) 40 mg, oral, Nightly Scheduled: PRN: Continuous: Scheduled Medications[3] PRN Medications[4] Continuous Medications[5] Diagnostic Results: LAB RESULTS: CBC Results from last 7 days Lab Units 08/04/25 14508/04/25 0837 WBC AUTO x10*3/uL 6.8 6.9 HEMOGLOBIN g/dL 12.4* 12.3* HEMATOCRIT % 37.1* 38.3* MCV fL 93 97 PLATELETS AUTO x10*3/uL 255 224 RFP Results from last 7 days Lab Units 08/04/25 1451 08/04/25 0837 GLUCOSE mg/dL 87 88 CALCIUM mg/dL 9.1 8.9 SODIUM mmol/L 143 142 POTASSIUM mmol/L 4.1 4.0 CO2 mmol/L 30 28 CHLORIDE mmol/L 105 107 BUN mg/dL 12 15 CREATININE mg/dL 0.77 0.84 Electrolyte Results from last 7 days Lab Units 08/04/25 1451 08/04/25 0837 CALCIUM mg/dL 9.1 8.9 MAGNESIUM mg/dL -- 1.76 COAG Imaging Results: CT head wo IV contrast Final Result Stable appearance of mixed density right parafalcine subdural hematoma without significant mass effect or midline shift. No new or enlarging intracranial hemorrhage. I personally reviewed the images/study and I agree with the findings as stated by resident physician Ramiro Weber MD. This study was interpreted at [place], [place]. MACRO: None Signed by: Gracie Carpenter 08/04/2025 4:05 PM Dictation workstation: [id number] CT chest abdomen pelvis w IV contrast Final Result CHEST 1. No acute traumatic injury within the chest. 2. Multiple subacute fractures of several anterior and right anterolateral ribs with callus formation, new compared to 05/10/2025 CT. ABDOMEN - PELVIS 1. Diffuse osteopenia, with likely acute insufficiency fracture of the right sacral ala. 2. Multiple subacute to remote appearing fractures within the right hemipelvis, as described. 3. Stable appearance of large infrarenal aortic aneurysm measuring up to 4.9 cm. 4. Additional chronic findings as described above. I personally reviewed the images/study and I agree with Jim Mayfield MD's findings as stated. This study was interpreted at [place], [place]. MACRO: None Signed by: Radha Raza 08/04/2025 5:23 PM Dictation workstation: [id number] CT lumbar spine retrospective reconstruction protocol Final Result 1. No acute fracture or traumatic malalignment of the thoracic or lumbar spine. 2. Lucency through the inferior right sacral wing was present on prior CT lumbar spine from 05/10/2025 and likely reflects a nonacute sacral insufficiency fracture. 3. See separately dictated CT chest abdomen pelvis. I personally reviewed the images/study and I agree with the findings as stated by resident physician Ramiro Weber MD. This study was interpreted at [place], [place]. MACRO: None. Signed by: Gracie Carpenter 08/04/2025 4:13 PM Dictation workstation: [id number] CT thoracic spine retrospective reconstruction protocol Final Result 1. No acute fracture or traumatic malalignment of the thoracic or lumbar spine. 2. Lucency through the inferior right sacral wing was present on prior CT lumbar spine from 05/10/2025 and likely reflects a nonacute sacral insufficiency fracture. 3. See separately dictated CT chest abdomen pelvis. I personally reviewed the images/study and I agree with the findings as stated by resident physician Ramiro Weber MD. This study was interpreted at [facility], [place], [place]. MACRO: None. Signed by: Gracie Carpenter 08/04/2025 4:13 PM Dictation workstation: [id number] XR hip right with pelvis when performed 2 or 3 views Final Result Mildly displaced fractures through the right superior and right inferior pubic rami with callus formation suggestive of subacute chronicity. Remote left inferior pubic ramus as well. No other fracture seen about the right hip. Severe right hip osteoarthritis. MACRO: None Signed by: Clement Estevez 08/04/2025 3:05 PM Dictation workstation: [id number] XR femur right 2+ views Final Result Mildly displaced fractures through the right superior and right inferior pubic rami with callus formation suggestive of subacute chronicity. Remote left inferior pubic ramus as well. No other fracture seen about the right hip. Severe right hip osteoarthritis. MACRO: None Signed by: Clement Estevez 08/04/2025 3:05 PM Dictation workstation: [id number] Assessment/Plan Assessment: Fawn Cameron 89 y.o. male H/o AAA, infrarenal aneurysm, HTN, HLD, CAD (on ASA), 04/2024 GLF w rSDH, 08/04 p/w GLF, CTH R frontal para falcine SDH, rCTH stable Plan: Keep SBP <160, ASA restart PBD3 (08/07) Keppra 7 days Further further Neurosurgical Recommendations. Neurosurgery will sign off, please feel free to reach out if there are any additional concerns Enmanuel Melgoza MD Department of Neurosurgery [facility] Note authored by resident on neurosurgery team, with all questions [place] [phone] Plan not finalized until note signed by attending [1] Past Medical History: Diagnosis Date Arthritis [...] 40 years ago WISDOM TOOTH EXTRACTION [3] levETIRAcetam, 500 mg, intravenous, BID [4] [5] niCARdipine, 0-15 mg/hr Cosigned by Chico Navarro MD at 08/05/2025 3:58 PM EDT documented in this encounter [facility] Work Phone: 08-06-2025 Note 1. Please refer to d etailed swallow study evaluation by speech pathologist. 2. No acute radiographic osseous abnormality. MACRO: None Signed by: Terry Ireland 08/06/2025 2:53 PM Dictation workstation: [id number] MMODAL 08-06-2025 Note Formatting of this n ote might be different from the original. Advance Care Planning Note Discussion Date: 08/06/25 Discussion Participants: patient, spouse, daughter, and son The patient wishes to discuss Advance Care Planning today and the following is a brief summary of our discussion. Patient has capacity to make their own medical decisions: Yes Health Care Agent/Surrogate Decision Maker documented in chart: Yes Documents on file and valid: Advance Directive/Living Will: Yes Health Care Power of Customer Service Teller: Yes Other: N/A Communication of Medical Status/Prognosis: Discussed swallow study results with patient that aspiration with all consistencies was seen. [place] to be due to anatomical deficits and did not feel there was rehab potential to improve. Discussed options for either NPO with oral care and use of existing PEG for nutrition and meds. The other option being to resume home diet and accept risk of aspiration given the pleasure and quality of life that PO intake affords. Discussed risk and benefit of each with patient and family. Communication of Treatment Goals/Options: Goal of pt expressed is to maximize quality of life. Pt discussed with family and stated that his quality of life is paramount. He accepted risk of worsened clinical course (aspiration pneumonitis/pneumonia) if PO because he values the quality of life it provides. Given risk of future decompensation from taking oral intake, Pt discussed code status with family and would like to be DNI and no ICU. Will update code status in chart. Questions answered Code status changed from DNR to DNR/DNI/no ICU Treatment Decisions Goals of Care: quality of life is prioritized; willing to accept low-burden treatments to achieve meaningful goals Follow Up Plan Additional listening and support Team Members Geriatrics team and attending Dr Douglas Time Statement: Total face to face time spent on advance care planning was 10 minutes with 5 minutes spent in counseling, including the explanation. Selam Jerry MD 08/06/2025 1:29 PM Cosigned by Sharon Rivera RDN, LD at 08/06/2025 3:[address] [facility] Work Phone: 08-06-2025 Plan of care note The patient's goals for the shift include The clinical goals for the shift include free from injury [facility] Work Phone: 08-06-2025 Nurse Note Orthostatic Vitals Lying B/P- 163/82 HR- 66 O2- 94% Sitting B/P- 152/83 HR- 70 O2- 94% Standing B/P- 136/86 HR- 86 O2- 93% [facility] Work Phone: 08-06-2025 Procedure note Associated Ord er(s): WARD SERVICE SUPERVISOR MODIFIED BARIUM SWALLOW EVALUATION Speech-Language Pathology Inpatient Modified Barium Swallow Study Patient Name: Fawn Campos : 1935 Today's Date: 08/06/25 Start Time: 800 Stop Time: 830 Time Calculation (min): 30 Modified Barium Swallow Study completed. Informed verbal consent obtained prior to completion of exam. Trials of thin liquids via tsp/straw, mildly (nectar) thick liquids via straw, moderately (honey) thick liquids via straw, and purees were given. WARD SERVICE SUPERVISOR: FLAVIA Humphrey Contact info: [employer] Reason for Referral: C/f aspiration/oropharyngeal dysphagia Patient Hx: Fawn Campos is a 89 y.o. 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 Respiratory Status: Room air Current diet: Easy to Chew Solids and Mildly ([place]) Thick Liquids; recommended at nursing facility, per medical team Pain: Pain Scale: 0-10 Ratin DIET RECOMMENDATIONS: NPO with frequent aggressive oral care. 10 ice chips/hr allowed for pleasure, safe swallow stimulation, and after oral care to prevent buildup of bacteria within the oropharynx GOC discussions re: assuming the risks of aspiration w/ continued PO intake; suspect pt's swallow rehabilitation poor 2/2 anatomical deficits (i.e., pt will remain at risk for aspiration regardless of any further WARD SERVICE SUPERVISOR intervention). MD aware. WARD SERVICE SUPERVISOR PLAN: Skilled WARD SERVICE SUPERVISOR Services: Skilled WARD SERVICE SUPERVISOR intervention for dysphagia is warranted. WARD SERVICE SUPERVISOR Frequency: pending GOC discussions Discussed POC: patient Discussed Risks/Benefits: Yes Patient/Caregiver Agreeable: Yes Short term goals established: Pt/caregiver/family will demonstrate adequate return of knowledge re: dysphagia POC/diet recommendations/safe swallowing guidelines w/ 100% acc to effectively assist the patient in immediate safety with oral intake and swallowing. Start Date: 08/06/2025 End Date: 09/06/2025 Status: Goal Initiated this date Pt will tolerate least restrictive diet with no overt clinical s/s aspiration 100% of the time. Start Date: 08/06/2025 End Date: 09/06/2025 Status: Goal Initiated this date Education Provided: Results and recommendations per MBSS, with video review; recommendations and POC at this time. Verbal understanding and agreement given on all accounts. Treatment Provided Today: WARD SERVICE SUPERVISOR provided extensive education and training to pt/pt family regarding anatomy/physiology of swallow function, risk factors of aspiration/aspiration pna & how to mitigate factors, diet modifications, and the use of compensatory swallow strategies to promote pt safety upon PO intake. Additional Medical Consults Suggested: GOC Mechanics of the Swallow Summary: ORAL PHASE: Lip Closure - No labial escape/anterior loss of bolus Tongue Control During Bolus Hold - Posterior escape of less than half of the bolus Bolus prep/mastication - Mastication not assessed Bolus transport/lingual motion - Repetitive/disorganized tongue motion (tongue pumping) Oral residue - Residue collection on oral structure PHARYNGEAL PHASE: Initiation of pharyngeal swallow - Bolus head at pit of pyriforms Soft palate elevation - No bolus between soft palate/pharyngeal wall Laryngeal elevation - Complete superior movement of thyroid cartilage with contact of arytenoids to epiglottic petiole Anterior hyoid excursion - Partial anterior movement Epiglottic movement - Partial inversion Laryngeal vestibule closure - None - wide column of air / contrast in laryngeal vestibule Pharyngeal stripping wave - Absent Pharyngeal contraction (A/P view) - Not tested Pharyngoesophageal segment opening - Partial distension/partial duration with partial obstruction of flow of bolus Tongue base retraction - Wide column of contrast or air between tongue base and pharyngeal wall Pharyngeal residue - Collection of residue within or on the pharyngeal structures ESOPHAGEAL PHASE: Esophageal clearance - Not evaluated *Of note: The A-P bolus follow-through is not intended to be utilized as a diagnostic assessment of the esophagus, rather a tool to observe the biomechanical aspects of the swallow continuum and to inform the need for further evaluation by medical specialists, as applicable. WARD SERVICE SUPERVISOR Impressions with Severity Rating: Pt awake/alert, consistently cooperative/able to follow commands, and responded appropriately to conversation/questions by WARD SERVICE SUPERVISOR. A&Ox4. Oral mechanism examination WNL. Of note, pt underwent initial MBSS during previous admission in April w/ recommendation of NPO w/ frequent aggressive oral care. INSURANCE COUNSEL + pt report subsequent PEG tube placement at OSH and eventual advancement of diet to Easy to Chew Solids & Mildly ([place]) Thick Liquids per WARD SERVICE SUPERVISOR at nursing facility; unable to locate documentation of diet advancement in EMR. PEG tube remains in place though pt reports tolerating complete oral diet w/ overt difficulty. Severe oropharyngeal dysphagia; swallow physiology outlined above. Impairments most impacting swallow function include severe cervical lordosis affecting epiglottic inversion/laryngeal vestibular closure and pharyngeal constriction. Deficits resulted in gross aspiration of thin liquids via straw during the swallow (pt sensed aspiration and attempted to clear w/ spontaneous cough w/o success), deep penetration of mildly (nectar) thick liquids via straw w/ head neutral and w/ chin tuck (cleared w/ cued coughs), and SILENT aspiration of both moderately (honey) thick liquids via straw and purees (cued coughs inconsistently successful in clearing). No further trials given 2/2 severity of swallow function. Pt not appropriate for initiation of PO diet. Recommend NPO w/ frequent aggressive oral care. 10 ice chips per hr allowed for pleasure, safe swallow stimulation, and after oral care to prevent buildup of bacteria within the oropharynx. Given pt's advanced age + baseline anatomical deficits, suspect poor swallow rehabilitation prognosis; pt will remain at risk for aspiration regardless of any further WARD SERVICE SUPERVISOR intervention. Therefore, question need for GOC discussions re: accepting the risks of aspiration w/ continued oral intake. MD aware. Extensive education/treatment provided to pt following completion of study re: results/recommendations and dysphagia POC. Pt verbalized understanding. Rosenbek's Penetration Aspiration Scale Thin Liquids: 7. OVERT ASPIRATION, material is not cleared - contrast passes glottis, visible residue, W/pt response During the Swallow [place] Thick Liquids: 5. DEEP PENETRATION with HIGH ASPIRATION risk - contrast contacts vocal cords, visible residue During the Swallow [place] Thick Liquids: 8. SILENT ASPIRATION - contrast passes glottis, visible residue, NO pt response, After the Swallow Puree: 8. SILENT ASPIRATION - contrast passes glottis, visible residue, NO pt response] During the Swallow [facility] Work Phone: 08-06-2025 Procedure note Associated Ord er(s): WARD SERVICE SUPERVISOR MODIFIED BARIUM SWALLOW EVALUATION Speech-Language Pathology Inpatient Modified Barium Swallow Study Patient Name: Fawn Campos : 1935 Today's Date: 08/06/25 Start Time: 800 Stop Time: 830 Time Calculation (min): 30 Modified Barium Swallow Study completed. Informed verbal consent obtained prior to completion of exam. Trials of thin liquids via tsp/straw, mildly (nectar) thick liquids via straw, moderately (honey) thick liquids via straw, and purees were given. WARD SERVICE SUPERVISOR: FLAVIA Humphrey Contact info: [employer] Reason for Referral: C/f aspiration/oropharyngeal dysphagia Patient Hx: Fawn Campos is a 89 y.o. 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 Respiratory Status: Room air Current diet: Easy to Chew Solids and Mildly ([place]) Thick Liquids; recommended at nursing facility, per medical team Pain: Pain Scale: 0-10 Ratin DIET RECOMMENDATIONS: NPO with frequent aggressive oral care. 10 ice chips/hr allowed for pleasure, safe swallow stimulation, and after oral care to prevent buildup of bacteria within the oropharynx GOC discussions re: assuming the risks of aspiration w/ continued PO intake; suspect pt's swallow rehabilitation poor 2/2 anatomical deficits (i.e., pt will remain at risk for aspiration regardless of any further WARD SERVICE SUPERVISOR intervention). MD aware. WARD SERVICE SUPERVISOR PLAN: Skilled WARD SERVICE SUPERVISOR Services: Skilled WARD SERVICE SUPERVISOR intervention for dysphagia is warranted. WARD SERVICE SUPERVISOR Frequency: pending GOC discussions Discussed POC: patient Discussed Risks/Benefits: Yes Patient/Caregiver Agreeable: Yes Short term goals established: Pt/caregiver/family will demonstrate adequate return of knowledge re: dysphagia POC/diet recommendations/safe swallowing guidelines w/ 100% acc to effectively assist the patient in immediate safety with oral intake and swallowing. Start Date: 08/06/2025 End Date: 09/06/2025 Status: Goal Initiated this date Pt will tolerate least restrictive diet with no overt clinical s/s aspiration 100% of the time. Start Date: 08/06/2025 End Date: 09/06/2025 Status: Goal Initiated this date Education Provided: Results and recommendations per MBSS, with video review; recommendations and POC at this time. Verbal understanding and agreement given on all accounts. Treatment Provided Today: WARD SERVICE SUPERVISOR provided extensive education and training to pt/pt family regarding anatomy/physiology of swallow function, risk factors of aspiration/aspiration pna & how to mitigate factors, diet modifications, and the use of compensatory swallow strategies to promote pt safety upon PO intake. Additional Medical Consults Suggested: GOC Mechanics of the Swallow Summary: ORAL PHASE: Lip Closure - No labial escape/anterior loss of bolus Tongue Control During Bolus Hold - Posterior escape of less than half of the bolus Bolus prep/mastication - Mastication not assessed Bolus transport/lingual motion - Repetitive/disorganized tongue motion (tongue pumping) Oral residue - Residue collection on oral structure PHARYNGEAL PHASE: Initiation of pharyngeal swallow - Bolus head at pit of pyriforms Soft palate elevation - No bolus between soft palate/pharyngeal wall Laryngeal elevation - Complete superior movement of thyroid cartilage with contact of arytenoids to epiglottic petiole Anterior hyoid excursion - Partial anterior movement Epiglottic movement - Partial inversion Laryngeal vestibule closure - None - wide column of air / contrast in laryngeal vestibule Pharyngeal stripping wave - Absent Pharyngeal contraction (A/P view) - Not tested Pharyngoesophageal segment opening - Partial distension/partial duration with partial obstruction of flow of bolus Tongue base retraction - Wide column of contrast or air between tongue base and pharyngeal wall Pharyngeal residue - Collection of residue within or on the pharyngeal structures ESOPHAGEAL PHASE: Esophageal clearance - Not evaluated *Of note: The A-P bolus follow-through is not intended to be utilized as a diagnostic assessment of the esophagus, rather a tool to observe the biomechanical aspects of the swallow continuum and to inform the need for further evaluation by medical specialists, as applicable. WARD SERVICE SUPERVISOR Impressions with Severity Rating: Pt awake/alert, consistently cooperative/able to follow commands, and responded appropriately to conversation/questions by WARD SERVICE SUPERVISOR. A&Ox4. Oral mechanism examination WNL. Of note, pt underwent initial MBSS during previous admission in April w/ recommendation of NPO w/ frequent aggressive oral care. INSURANCE COUNSEL + pt report subsequent PEG tube placement at OSH and eventual advancement of diet to Easy to Chew Solids & Mildly ([place]) Thick Liquids per WARD SERVICE SUPERVISOR at nursing facility; unable to locate documentation of diet advancement in EMR. PEG tube remains in place though pt reports tolerating complete oral diet w/ overt difficulty. Severe oropharyngeal dysphagia; swallow physiology outlined above. Impairments most impacting swallow function include severe cervical lordosis affecting epiglottic inversion/laryngeal vestibular closure and pharyngeal constriction. Deficits resulted in gross aspiration of thin liquids via straw during the swallow (pt sensed aspiration and attempted to clear w/ spontaneous cough w/o success), deep penetration of mildly (nectar) thick liquids via straw w/ head neutral and w/ chin tuck (cleared w/ cued coughs), and SILENT aspiration of both moderately (honey) thick liquids via straw and purees (cued coughs inconsistently successful in clearing). No further trials given 2/2 severity of swallow function. Pt not appropriate for initiation of PO diet. Recommend NPO w/ frequent aggressive oral care. 10 ice chips per hr allowed for pleasure, safe swallow stimulation, and after oral care to prevent buildup of bacteria within the oropharynx. Given pt's advanced age + baseline anatomical deficits, suspect poor swallow rehabilitation prognosis; pt will remain at risk for aspiration regardless of any further WARD SERVICE SUPERVISOR intervention. Therefore, question need for GOC discussions re: accepting the risks of aspiration w/ continued oral intake. MD aware. Extensive education/treatment provided to pt following completion of study re: results/recommendations and dysphagia POC. Pt verbalized understanding. Rosenbek's Penetration Aspiration Scale Thin Liquids: 7. OVERT ASPIRATION, material is not cleared - contrast passes glottis, visible residue, W/pt response During the Swallow [place] Thick Liquids: 5. DEEP PENETRATION with HIGH ASPIRATION risk - contrast contacts vocal cords, visible residue During the Swallow [place] Thick Liquids: 8. SILENT ASPIRATION - contrast passes glottis, visible residue, NO pt response, After the Swallow Puree: 8. SILENT ASPIRATION - contrast passes glottis, visible residue, NO pt response] During the Swallow documented in this encounter [facility] Work Phone: 08-06-2025 Plan of care note The patient's goals for the shift include free from injury The clinical goals for the shift include free from injury [facility] Work Phone: 08-05-2025 Nurse Note Orthostatic Vitals- post bolus Lying B/P- 146/70 HR- 59 O2- 97% Sitting B/P- 135/73 HR- 68 O2- 97% Standing B/P- 116/56 HR- 73 O2- 97% [facility] Work Phone: 08-05-2025 Plan of care note The patient's goals for the shift include The clinical goals for the shift include Patient will be HDS [facility] Work Phone: 08-05-2025 Nurse Note Orthostatic Vitals Lying B/P- 119/70 HR- 64 O2- 92% Sitting B/P- 91/53 HR- 70 O2-94% Standing B/P- 84/55 HR-83 O2- 90% [facility] Work Phone: 08-05-2025 Consult note Associated Order (s): Inpatient consult to Geriatric Medicine Images from the original note were not included. Inpatient consult to Geriatric Medicine Consult performed by: Selam Jerry MD Consult ordered by: Elaine Madrigal APRN-CAMI Primary Team: Trauma Admit Date: 08/04/2025 Emergency Contact: Extended Emergency Contact Information Primary Emergency Contact: Diya Cameron Address: [address] of [facility] Mobile Relation: Spouse Certified Fraud Examiner needed? No Reason For Consult: medical management and med review History Of Present Illness: Fawn Campos is a 89 y.o. 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 Per ED notes - At home, reached for walker, lost balance and fell backward. Hit head, no LOC. Weaker since return home from SNF. Called EMS. Presented to [facility] ED. Vitals stable. EKG no ischemic changes. CT showing new R parafalcine subdural hematoma. Transfer to [facility]. At [facility] vitals stable. Admitted to trauma. NSGY consulted - BP goal <160, resume ASA 10/17. Last Asa 08/03. Started on Keppra 500 BID Labs CBC: 04/02//224 (baseline hb 10-11) BMP unremarkable, Cr 0.8 (baseline 0.5-0.8 Trop neg, UA negative Subsequent LFT also normal CTH: Right parafalcine subdural hematoma CT cervical spine: no fx XR hip: Mildly displaced fractures through the right superior and right inferior pubic rami with callus formation suggestive of subacute chronicity. Remote left inferior pubic ramus as well. Repeat CTH stability scan:Stable appearance of mixed density right parafalcine subduralhematoma without significant mass effect or midline shift. No new or enlarging intracranial hemorrhage. 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 Managed non operatively. Failed speech eval and dobhoff placed, dispo to SNF. Seen by kaela who recommended orthostatic vitals, and recommended holding home BP meds (alfuzosin, amlodipine, benzapril and amitriptiline. Vit D 18 recommended high dose supplementation. And B12 282 recommended supplementation. DEXA scan outpt as hx of alendronate. At [facility] and then went home end of Jun Due to dysphagia liquids and solids, PEG [facility] Weight 65 kg was 66 kg in April. On the floor HR 50s-60s BP 140s-150s/60s satting 98% RA PO 120 UOP 250 and no stool Received tylenol x2 History per patient: Pt says was getting out of bed 0600 yesterday to urinate (was anxious to go, typically has 3-4x nocturia), reached for walker and was trying to move quickly when fell and hit his head on the wall by the bed no LOC. No recent falls, doing well at home walking with PT, trying to use cane. Does not get dizzy when stands up quickly. After fall, came and helped him to bed and called EMS This morning feels well, no pain For PEG not using presently for about 3 weeks just flush daily, was supposed to have repeat swallow by PCP to determine PEG removal. No longer getting Jevity. Currently has thickened nectar liquids and crush pills History per family/caregiver: Spoke with Diya. Misstepped and tangled up with walker. Not very steady. Cannot walk alone. Fell and hit side. [facility] - reached for something and lost balance Has been home for about 3 weeks Frequent nocturia - prostate enlargement, was supposed to see urology, was on flomax prior but did not help What matters most to the patient: Getting strength back Prior to Admission Meds Prior to Admission Medications Prescriptions Last Dose Informant Patient Reported? Taking? acetaminophen (Tylenol) 325 mg tablet Spouse/Significant Other No No Si tablets (650 mg) by nasogastric tube route every 6 hours. Patient not taking: Reported on 08/04/2025 acetaminophen 500 mg powder in packet Spouse/Significant Other Yes No Sig: Take 1,000 mg by mouth every 6 hours. Patient taking differently: Take 1,000 mg by mouth every 6 hours if needed (pain). amitriptyline (Elavil) 10 mg tablet 08/03/2025 Bedtime Spouse/Significant Other No Yes Sig: Take 1 tablet (10 mg) by mouth once daily at bedtime. aspirin 81 mg EC tablet 08/03/2025 Morning Spouse/Significant Other Yes Yes Sig: Take 1 tablet (81 mg) by mouth once daily. benazepril (Lotensin) 40 mg tablet 08/03/2025 Morning Spouse/Significant Other No Yes Sig: Take 1 tablet (40 mg) by mouth once daily. cholecalciferol (Vitamin D-3) 125 mcg (5,000 units) tablet Spouse/Significant Other No No Sig: Take 1 tablet (125 mcg) by mouth once daily. Patient not taking: Reported on 08/04/2025 doxazosin (Cardura) 4 mg tablet 08/03/2025 Bedtime Spouse/Significant Other Yes Yes Sig: Take 1 tablet (4 mg) by mouth once daily. Patient taking differently: Take 1 tablet (4 mg) by mouth once daily at bedtime. escitalopram (Lexapro) 5 mg tablet 08/03/2025 Morning Spouse/Significant Other No Yes Sig: Take 1 tablet (5 mg) by mouth once daily. folic acid (Folvite) 1 mg tablet 08/03/2025 Morning Spouse/Significant Other No Yes Sig: Take 2 tablets (2 mg) by mouth once daily. Patient taking differently: Take 1 tablet (1 mg) by mouth once daily. methotrexate (Trexall) 2.5 mg tablet Not Taking Spouse/Significant Other Yes No Sig: Take 8 tablets (20 mg total) by mouth 1 (one) time per week. On Sundays Patient not taking: Reported on 08/04/2025 metoprolol tartrate (Lopressor) 25 mg tablet 08/03/2025 Evening Spouse/Significant Other No Yes Sig: Take 1 tablet (25 mg) by mouth 2 times a day. omeprazole (PriLOSEC) [address] capsule 08/03/2025 Bedtime Spouse/Significant Other No Yes Sig: Take 1 capsule (40 mg) by mouth once daily in the morning. Take before meals. Patient taking differently: Take 1 capsule (40 mg) by mouth once daily at bedtime. pravastatin (Pravachol) 40 mg tablet 08/03/2025 Bedtime Spouse/Significant Other No Yes Sig: Take 1 tablet (40 mg) by mouth once daily at bedtime. Facility-Administered Medications: None Per not currently taking vitamin D as cannot crush Current Meds in Hospital Current Medications[1] The patient's outpatient electronic medical record (EMR) is reviewed, notable information includes see below. 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 Highest Level of Education: Post-Graduate Degree Community Resources: Home PT/OT [facility]: No Current living environment: 2 story but lives on first floor, bathroom near bedroom, has shower chair Activities of Daily Living: Basic ADLs: (I= independent, A= assistance, D= dependent) Bathing: A, Dressing: A, Toileting: I, Transferring: I, Continence: A, Feeding: I Adamson Index: 3 Instrumental ADLs: (I= independent, A= assistance, D= dependent) Ability to use phone: I, Shopping: D, Cooking: D, Housekeeping: D, Laundry: D, Transportation: D, Medications: D, Handle Finances: A Jan Scale: 1 Allergies Patient has no known allergies. Review of Systems Review of System: Constitutional: -Night sweats/fever: None -Weight change: None has been stable Integumentary: L elbow healing laceration from fall at facility before left, does have L bedsore Ears, Nose, Throat: -Hearing loss: yes wears hearing aid Eyes: -Vision loss: bifocals No dentures Cardiovascular: -Chest Pain: None -Orthopnea: None -Paroxysmal nocturnal dyspnea: None -Edema: None Respiratory: -Dyspnea: None -Wheezing: None Gastrointestinal: -Appetite: good -Difficulty chewing/ swallowing: yes, -Heartburn: occasional -Bowels: last BM 2 days ago, no constipation meds Genitourinary: -Incontinence: Sometimes -Nocturia: 3-4x per night Musculoskeletal: -Mobility: walks with walker -Pain: occasional R hip pain Neurological: -Confusion: occasionally ( says pretty with it) -Falls: yes -Gait: some unsteadiness -Memory: Sometimes forgetful ( says not many memory concerns) -Tremor: occasionally in the morning Psychiatric: -Mood: good -Sleep: sleeps well except for nocturia Endocrine: No issues Hematologic/ Lymphatic: no issues Allergic/ Immunologic: No issues Documents on file and valid: Advance Directive/Living Will: Yes Health Care Power of Customer Service Teller: Yes Other: N/A Code Status: DNR Confusion Assessment Method (CAM) Not on file. Fabrice Cognitive Assessment (MoCA) Not on file. Geriatric Depression Scale (GDS) Not on file. Mini-Cog (Early Dementia Detection) Not on file. Folstein Mini-Mental State Exam (MMSE) Not on file. Patient Health Questionnaire (PHQ-9) Not on file. Physical Exam Gen: NAD, alert and oriented, resting comfortably HEENT: PERRL, EOMI, no oral lesions, MMM Neck: supple, no masses Cardiac: RRR. Systolic murmur Resp: CTA b/l, no rales or ronchi Abd: soft, nontender to palpation, no HSM, normal bowel sounds, Peg in place MSK: Strength and ROM grossly intact b/l Neuro: CN 2-12 intact b/l, sensation to light touch intact Skin: No rash or bruising Lymph: No edema, SCD in place Vascular: Radial and pedal pulses 2+ b/l Psych: Normal mood and affect Last Recorded Vitals 08/04/2025 5:00 PM 08/04/2025 7:30 PM 08/04/2025 8:20 PM 08/04/2025 8:30 PM 08/04/2025 10:09 PM 08/05/2025 12:06 AM 08/05/2025 3:33 AM Vitals Systolic 132 146 150 158 148 152 157 Diastolic 66 96 67 75 66 76 62 BP Location Right arm Right arm Right arm Right arm Heart Rate 54 64 97 68 62 58 68 Temp 36.7 C (98.1 F) 36.3 C (97.3 F) 36.5 C (97.7 F) 37 C (98.6 F) Resp 10 10 17 19 18 17 Vitals: 08/04/25 1434 Weight: 65.3 kg (144 lb) Confusion Assessment Method(CAM) for diagnosis of [...] delirium still possible if (4) information incomplete) Relevant Results Lab Results Component Value Date TSH 4.88 (H) 05/12/2025 [id number] 283 05/12/2025 VITD25 18 (L) 05/12/2025 Results from last 7 days Lab Units 08/04/25 1451 08/04/25 0837 WBC AUTO x10*3/uL 6.8 6.9 HEMOGLOBIN g/dL 12.4* 12.3* HEMATOCRIT % 37.1* 38.3* ALT U/L 16 -- AST U/L 15 -- SODIUM mmol/L 143 142 POTASSIUM mmol/L 4.1 4.0 CHLORIDE mmol/L 105 107 CREATININE mg/dL 0.77 0.84 BUN mg/dL 12 15 CO2 mmol/L 30 [address] chest abdomen pelvis w IV contrast Narrative: Interpreted By: Radha Raza and Chaparro Fernandez STUDY: CT CHEST ABDOMEN PELVIS W IV CONTRAST; 08/04/2025 3:18 pm INDICATION: Signs/Symptoms:fall, SDH new, now new R hip pain COMPARISON: CT chest abdomen pelvis 05/10/2025 ACCESSION NUMBER(S): [id number] ORDERING CLINICIAN: KATHERINE POTTS TECHNIQUE: CT of the chest, abdomen, and pelvis was performed. Contiguous axial images were obtained at 5 mm slice thickness through the chest, and at 3 mm through the abdomen and pelvis. Coronal and sagittal reconstructions at 3 mm slice thickness were performed. 90 ML of Omnipaque 350 was administered intravenously without immediate complication. FINDINGS: CHEST: LUNG/PLEURA/LARGE AIRWAYS: No air space opacity, focal consolidation, pleural effusion/hemothorax, or pneumothorax are appreciated. There are no discrete pulmonary nodules. VESSELS: No traumatic aortic injury is appreciated within the limitations of this non-EKG gated study. The thoracic aorta is of normal course and caliber. Main pulmonary artery and its branches are normal in caliber. Mild coronary artery calcifications are seen.The study is not optimized for evaluation of coronary arteries. HEART: The heart is normal in size. There is no pericardial effusion. MEDIASTINUM AND NATALIA: No pneumomediastinum, abnormal mediastinal fluid collection or mediastinal hematoma are appreciated. No mediastinal, hilar or biaxillary adenopathy is present. The esophagus is normal in course and caliber. CHEST WALL AND LOWER NECK: Multiple subacute fractures of the anterior ribs. No acute fracture or dislocation of the included osseous structures are appreciated. No suspicious osseous lesions are identified. The thoracic wall soft tissues are within normal limits. Reverse left total shoulder arthroplasty. ABDOMEN: LIVER: No focal perfusion abnormality of the liver is appreciated to suggest contusion or laceration. There is no subcapsular hematoma, no perihepatic fluid collection. The liver is normal in size and appearance. GALLBLADDER: The gallbladder is nondistended without evidence of radiopaque stone. BILE DUCTS: The intahepatic and extrahepatic bile ducts are not dilated. PANCREAS: Within normal limits SPLEEN: No parenchymal perfusion deficit of the spleen is appreciated to suggest contusion or laceration. There is no subcapsular hematoma, no perisplenic fluid collection. Stable appearing hypodense lesions ADRENAL GLANDS: The bilateral adrenal glands are unremarkable in appearance. KIDNEYS AND URETERS: No parenchymal perfusion deficit is appreciated in bilateral kidneys to suggest contusion or laceration. There is no subcapsular hematoma, no perinephric fluid collection. No hydroureteronephrosis or nephroureterolithiasis is present. PELVIS: BLADDER: The urinary bladder appears within normal limits. REPRODUCTIVE ORGANS: No pelvic masses. No significant free fluid. BOWEL: Interval placement peg tube when compared to prior 05/10/2025. The stomach is within normal limits. The small bowel is normal in caliber without evidence of focal wall thickening or obstruction. There is no evidence of focal wall thickening or dilatation of the large bowel. The appendix is normal. VESSELS: 4.9 x 3.6 cm infrarenal aortic aneurysm with eccentric mural thrombus (series 301, image 57). 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 1.5 cm x 1.3 cm right common iliac artery aneurysm. The aorta and IVC are within normal limits. The principal vasculature of the abdomen and pelvis is patent. There is moderate atherosclerotic calcification of the abdominal aorta and its branches. PERITONEUM/RETROPERITONEUM/LYMPH NODES: There is no evidence of intra- or retroperitoneal hematoma. There is no free or loculated fluid collection, no free intraperitoneal air. No abdominopelvic lymphadenopathy is present. BONES AND ABDOMINAL WALL: Acute insufficiency fracture in the right sacral ala (series 201, image 149). Subacute to remote appearing fractures through the right superior and right inferior pubic rami with callus formation. Left hip arthroplasty intact. Severe right hip osteoarthrosis. Diffuse osteopenia. Postoperative changes in the anterior abdominal wall. Impression: CHEST 1. No acute traumatic injury within the chest. 2. Multiple subacute fractures of several anterior and right anterolateral ribs with callus formation, new compared to 05/10/2025 CT. ABDOMEN - PELVIS 1. Diffuse osteopenia, with likely acute insufficiency fracture of the right sacral ala. 2. Multiple subacute to remote appearing fractures within the right hemipelvis, as described. 3. Stable appearance of large infrarenal aortic aneurysm measuring up to 4.9 cm. 4. Additional chronic findings as described above. I personally reviewed the images/study and I agree with Jim Mayfield MD's findings as stated. This study was interpreted at [place], [place]. MACRO: None Signed by: Radha Raza 08/04/2025 5:23 PM Dictation workstation: [id number] CT lumbar spine retrospective reconstruction protocol, CT thoracic spine retrospective reconstruction protocol Narrative: Interpreted By: Gracie Carpenter and Liu Scott STUDY: CT THORACIC SPINE RETROSPECTIVE RECONSTRUCTION PROTOCOL; CT LUMBAR SPINE RETROSPECTIVE RECONSTRUCTION PROTOCOL; 08/04/2025 3:18 pm INDICATION: Signs/Symptoms:fall. COMPARISON: CT thoracic and lumbar spine 05/10/2025 ACCESSION NUMBER(S): [id number]; [id number] ORDERING CLINICIAN: KATHERINE POTTS TECHNIQUE: Multiplanar reformatted images of the thoracic and lumbar spine were reconstructed from source data of concurrent CT chest/abdomen/pelvis acquisition. FINDINGS: CT THORACIC SPINE: PARASPINAL SOFT TISSUES: No paravertebral fluid collection or significant edema. ALIGNMENT: No traumatic spondylolisthesis or traumatic facet widening. VERTEBRAE: No acute fracture. Mild multilevel vertebral body height loss. SPINAL CANAL/INTERVERTEBRAL DISCS: No high-grade spinal canal stenosis. Mild multilevel disc space height loss. CT LUMBAR SPINE: This report assumes 5 non-rib bearing lumbar vertebral bodies. The lowest intervertebral disc will be labeled L5-S1. PARASPINAL SOFT TISSUES: No paravertebral fluid collection or significant edema. ALIGNMENT: No traumatic spondylolisthesis or traumatic facet widening. There is S shaped curvature of the thoracic spine. VERTEBRAE: No acute fracture. Mild multilevel vertebral body height loss. SPINAL CANAL/INTERVERTEBRAL DISCS: At T12-L1, there is a remote appearing, posteriorly projecting osteophyte versus calcified intervertebral disc, with ventral indentation of the thecal sac and resulting in mild/moderate spinal canal stenosis. From L1-L2 through L5-S1 there is broad-based posterior disc bulge resulting in multilevel mild to moderate spinal canal stenosis at these levels. Multilevel disc space height loss at L1-L2 through L5-S1 with vacuum disc phenomenon at L3-L4, L4-L5, and L5-S1. NEURAL FORAMINA: Mild/moderate neural foraminal stenosis at right-sided L2-L3, L3-L4, and L4-L5 neural foramina due to combination of disc osteophyte complex, facet osteoarthrosis, and levocurvature of the lumbar spine at these levels. There is redemonstration of a lucency through the inferior aspect of the right sacral wing (Series 307, Image 47) and (Series 307, Image 45), present on CT lumbar spine from 05/10/2025 and likely reflecting remote fracture See separately dictated same-day CT chest abdomen pelvis. Impression: 1. No acute fracture or traumatic malalignment of the thoracic or lumbar spine. 2. Lucency through the inferior right sacral wing was present on prior CT lumbar spine from 05/10/2025 and likely reflects a nonacute sacral insufficiency fracture. 3. See separately dictated CT chest abdomen pelvis. I personally reviewed the images/study and I agree with the findings as stated by resident physician Ramiro Weber MD. This study was interpreted at [facility], [place], [place]. MACRO: None. Signed by: Gracie Carpenter 08/04/2025 4:13 PM Dictation workstation: [id number] ECG 12 lead Normal sinus rhythm Poor R-wave progression ; consider anterior infarct, lead placement, or normal variant Abnormal ECG When compared with ECG of 30-JUL-2025 15:00, (unconfirmed) Right bundle branch block is no longer Present CT head wo IV contrast Narrative: Interpreted By: Gracie Carpenter and Gus Rubio STUDY: CT HEAD WO IV CONTRAST; 08/04/2025 3:18 pm INDICATION: Signs/Symptoms:SDH stability scan. COMPARISON: CT head 08/04/[address] head 05/10/2025 ACCESSION NUMBER(S): [id number] ORDERING CLINICIAN: KATHERINE POTTS TECHNIQUE: Noncontrast axial CT scan of head was performed. Angled reformats in brain and bone windows were generated. The images were reviewed in bone, brain, blood and soft tissue windows. FINDINGS: There is overall stable appearance of the mixed density subdural collection in the right parafalcine region measuring estimated 3.6 x 0.8 cm (Series 205, Image 65) and (Series 206, Image 34). There is decreased conspicuity of subtle hyperattenuation along the left anterior frontal lobe (Series 201, Image 19) in comparison to remote CT examination from 05/10/2025. There is no new or enlarging extra-axial fluid collection. No significant mass effect, midline shift, or hydrocephalus. No acute loss of the callaway-white differentiation. No intraparenchymal hemorrhage. No calvarial fracture or sizable scalp hematoma. Paranasal sinuses and mastoids are clear. Evidence of bilateral lens surgery. Impression: Stable appearance of mixed density right parafalcine subdural hematoma without significant mass effect or midline shift. No new or enlarging intracranial hemorrhage. I personally reviewed the images/study and I agree with the findings as stated by resident physician Ramiro Weber MD. This study was interpreted at [facility], [place], [place]. MACRO: None Signed by: Gracie Carpenter 08/04/2025 4:05 PM Dictation workstation: [id number] XR hip right with pelvis when performed 2 or 3 views, XR femur right 2+ views Narrative: Interpreted By: Clement Estevez, STUDY: XR FEMUR RIGHT 2+ VIEWS; XR HIP RIGHT WITH PELVIS WHEN PERFORMED 2 OR 3 VIEWS; ; 08/04/2025 3:00 pm INDICATION: Signs/Symptoms:fall r hip pain; Signs/Symptoms:r hip ppain fall. COMPARISON: None. ACCESSION NUMBER(S): [id number]; [id number] ORDERING CLINICIAN: KATHERINE POTTS FINDINGS: There is a mildly displaced fracture through the right superior pubic ramus. There is a mild displaced fracture through the right inferior pubic ramus. Callus formation sclerosis at this location suggestive of a subacute injury. There is a remote fracture through the left inferior pubic ramus as well with sclerosis. No other fracture seen. There is no dislocation. There is severe joint space narrowing with osteophytosis across the right hip. Left total hip arthroplasty present. Extensive vascular calcifications present. Impression: Mildly displaced fractures through the right superior and right inferior pubic rami with callus formation suggestive of subacute chronicity. Remote left inferior pubic ramus as well. No other fracture seen about the right hip. Severe right hip osteoarthritis. MACRO: None Signed by: Clement Estevez 08/04/2025 3:05 PM Dictation workstation: [id number] CT head wo IV contrast Narrative: Interpreted By: Vinicius Dobbs, STUDY: CT HEAD WO IV CONTRAST; 08/04/2025 8:22 am INDICATION: Signs/Symptoms:fall. COMPARISON: 05/10/2025 ACCESSION NUMBER(S): [id number] ORDERING CLINICIAN: SANTIAGO MENENDEZ TECHNIQUE: Sequential trans axial images were obtained . FINDINGS: INTRACRANIAL: There is [id number] prominence of the cortical sulci indicating atrophy. Additionally there has been resolution of greater CSF prominence at the right convexity compared to the prior examination probably due to resolution of the hygroma or liquified subdural hematoma. There is moderate ventriculomegaly, again consistent with atrophy. Afnc-bh-uacotest decreased attenuation of the periventricular and long tracks of the white matter most consistent with gliosis from arterial disease. Of note is increased attenuation along the right aspect of the falx anteriorly. This measures up to 3.5 cm in length and 8 mm in thickness best seen on sagittal image 40 of series 9. Small subarachnoid hemorrhage at the right parietal-occipital region on the prior examination has resolved. A small foci of attenuation along the lateral margin of right frontal lobe on image 34 of series 2 is similar to the previous examination and was suspected to be subarachnoid hemorrhage, but more likely artifactual given the time interval. EXTRACRANIAL: Visualized paranasal sinuses and mastoids are clear. There is slight concavity of the floor of the anterior fossa on the right, again suspected to be a fracture as on the prior exam. The calvarium otherwise is intact. Moderate atherosclerotic calcification at the carotid siphon. Impression: Right parafalcine subdural hematoma as described. Resolution of focal subarachnoid hemorrhage at the right parietal-occipital region previously. Foci of attenuation at the right frontal lobe is probably artifactual, but attention at follow-up recommended as this was suspected to be hemorrhage on the prior exam. MACRO: Vinicius Dobbs discussed the significance and urgency of this critical finding by EPIC secure chat with SANTIAGO MENENDEZ on 08/04/2025 at 9:10 am. (-RCF-) Findings: See findings. Signed by: Vinicius Dobbs 08/04/2025 9:12 AM Dictation workstation: [id number] CT cervical spine wo IV contrast Narrative: Interpreted By: Henry Kenny, STUDY: CT CERVICAL SPINE WO IV CONTRAST; 08/04/2025 8:22 am INDICATION: Signs/Symptoms:fall. COMPARISON: None. ACCESSION NUMBER(S): [id number] ORDERING CLINICIAN: SANTIAGO MENENDEZ TECHNIQUE: Axial CT images of the cervical spine are obtained. Axial, coronal and sagittal reconstructions are provided for review. Noncontrast CT limited for soft disc. FINDINGS: Fractures: There is no evidence for an acute fracture of the cervical spine. Vertebral Alignment: Minimal scoliosis without traumatic subluxation. Craniocervical Junction: The odontoid process and craniocervical junction are intact. Vertebrae/Disc Spaces: The cervical vertebral body heights are intact. Multilevel cervical degenerative changes noted. 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 Prevertebral/Paraspinal Soft Tissues: The prevertebral and paraspinal soft tissues are unremarkable. Significant right apical pleural thickening. Carotid arterial calcifications [id number]. Impression: No evidence for an acute fracture or subluxation of the cervical spine. Mild scoliosis with mild multilevel cervical degenerative change. MACRO: None Signed by: Henry Kenny 08/04/2025 8:39 AM Dictation workstation: [id number] XR chest 1 view Narrative: STUDY: Chest Radiograph; 08/04/2025, 0751 INDICATION: Weakness. COMPARISON: XR chest 05/10/2025, CT chest 05/10/2025, XR chest 11/15/2023. ACCESSION NUMBER(S): [id number] ORDERING CLINICIAN: SANTIAGO MENENDEZ TECHNIQUE: Frontal chest was obtained at 0751 hours. FINDINGS: CARDIOMEDIASTINAL SILHOUETTE: Cardiomediastinal silhouette is normal in size and configuration. LUNGS: Calcified granuloma in the right midlung zone. Hazy opacity in the right midlung zone, new compared to prior. Linear atelectasis in the left base. ABDOMEN: No remarkable upper abdominal findings. BONES: No acute osseous changes. Impression: Hazy opacity in the right midlung zone, new compared to prior. Correlate clinically for possible pneumonia. Signed by Nguyễn Saucedo MD Head/Brain Imaging === Results for orders placed during the hospital encounter of 08/04/25 === CT head wo IV contrast [[id number]] 08/04/2025 Status: Normal Stable appearance of mixed density right parafalcine subdural hematoma without significant mass effect or midline shift. No new or enlarging intracranial hemorrhage. I personally reviewed the images/study and I agree with the findings as stated by resident physician Ramiro Weber MD. This study was interpreted at [facility], [place], [place]. MACRO: None Signed by: Gracie Carpenter 08/04/2025 4:05 PM Dictation workstation: [id number] No results found for this or any previous visit. DATA: EKG: QTC Encounter Date: 08/04/25 ECG 12 lead Result Value Ventricular Rate 69 Atrial Rate 69 MO Interval 166 QRS Duration 92 QT Interval 404 QTC Calculation(Bazett) 432 P [place] 104 R [place] 11 T [place] 26 QRS Count 11 Q Onset 224 P Onset 141 P Offset 181 T Offset 426 QTC [place] 423 Narrative Normal sinus rhythm Poor R-wave progression ; consider anterior infarct, lead placement, or normal variant Abnormal ECG When compared with ECG of 30-JUL-2025 15:00, (unconfirmed) Right bundle branch block is no longer Present Anti-psychotics in 48 hours: None Opioids/Benzodiazepines in 48 hours: None Anticholinergics on board:Yes - amitriptyline Restraints:No Indwelling catheters:No Last BM: 2 days prior UO in 24 hours: 250 ml documented Activity in the past 24 hours: planned to work with PT Need for ambulatory devices: walker Assessment/Plan This is a/an 89 y.o. 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 Principal Problem: Head injury, initial encounter 1. Acute fall with SDH -differential includes orthostasis vs vs urinary urgency vs polypharmacy Plan: orthostatic vitals - orthostatic this AM, bolus given, hold BP meds and TCA outpt DEXA recommended given hx of being on alendronate but no prior DEXA Vit D and B12 levels check and replete pending value 2. Polypharmacy - on several home peripheral vasodilators that can cause orthostasis and hypotension (alfuzosin, benazepril, metoprolol) -Appears pt hypertension overtreated as ambulatory BP in 90s/100s systolic - amitryptyline and alfuzosin are anticholinergic and can cause sedation/ weakness/ hypotension - Please hold alfuzosin, metoprolol, benazepril and amitryptyline and do not resume on dispo 3. Nocturia 2/2 BPH -Saw urology 08/2023 for BPH, started on Alfuzosin andf timed voiding. Was on flomax prior but did not help per Plan: once orthostasis improves will discuss resumption of alpha juan - Tamsulosin appears to have least affect on systemic BP compared to Alfuzosin Monitor for urinary retention (bladder scan if no void 8 hr) 4. Dysphagia -Originally failed 05/14 swallow study, discharged with dobhoff, continued dyaphagia at SNF but improving on nectar thick liquids at home Plan: [employer] consult to see if diet can be advanced Care Transitions: -Recommended level for discharge: pending PT/Ot assess -Home going considerations: fall precautions -Primary care physician: Dr Don Barrera Goals of Care: -Health care power of contracts attorney: -Living will: yes Code status: DNR 4M AGE-FRIENDLY INITIATIVE: What matters most to patient: getting strength back Medications: careful with anticholinergic medications Mentation: A/O x 4 Mobility: with walker Geriatric medicine will continue to follow the patient. Thank you for allowing geriatric medicine to be involved in the care of your patient. Geriatric medicine consultation team is available during work hours Sunday through Sunday. For any emergency issues requiring immediate assistance over the weekend, please page Geriatrics pager [phone] Consult Billing Time Prep time on date of patient encounter(minutes):30 Time directly with patient/family/caregiver(minutes):5 0 Documentation time(minutes):30 TOTAL TIME(minutes):110 Selam Jerry MD I saw and evaluated the patient. I personally obtained the de jesus and critical portions of the history and physical exam or was physically present for de jesus and critical portions performed by the resident. I reviewed the resident s documentation and discussed the patient with the resident. I agree with the resident s medical decision making as documented in their note Patient seen and examined. He is alert, oriented to person, place or time. He is attentive. BP remains low. Recommend holding off BP meds, reassessing for resumption of BP meds Will need to monitor for urine retention Zahira Douglas MD [1] Current Facility-Administered Medications Medication Dose Route Frequency Provider Last Rate Last Admin acetaminophen (Tylenol) tablet 975 mg 975 mg oral q8h Gauri Ortiz PA-C 975 mg at 08/05/25 0515 amitriptyline (Elavil) tablet 10 mg 10 mg oral Nightly Gauri Ortiz PA-C [Held by provider] aspirin EC tablet 81 mg 81 mg oral Daily Gauri Ortiz PA-C cholecalciferol (Vitamin D-3) tablet 125 mcg 125 mcg oral Daily Gauri Ortiz PA-C escitalopram (Lexapro) tablet 5 mg 5 mg oral Daily Gauri Ortiz PA-C folic acid (Folvite) tablet 1 mg 1 mg oral Daily Gauri Ortiz PA-C levETIRAcetam (Keppra) 500 mg in sodium chloride (iso) IV 100 mL 500 mg intravenous BID Katherine Potts DO Stopped at 08/04/252147 metoprolol tartrate (Lopressor) tablet 25 mg 25 mg oral BID Gauri Ortiz PA-C 25 mg at 08/04/259 oxyCODONE (Roxicodone) immediate release tablet 2.5 mg 2.5 mg oral q6h PRN Gauir Ortiz PA-C oxyCODONE (Roxicodone) immediate release tablet 5 mg 5 mg oral q6h PRN Gauri Ortiz PA-C oxygen (O2) therapy 1 Dose inhalation Continuous - O2/gases Gauri Ortiz PA-C pantoprazole (ProtoNix) EC tablet 40 mg 40 mg oral Nightly Gauri Ortiz PA-C 40 mg at 08/04/252208 polyethylene glycol (Glycolax, Miralax) packet 17 g 17 g oral Daily Gauri Ortiz PA-C sennosides-docusate sodium (Griselda-Colace) 8.6-50 mg per tablet 2 tablet 2 tablet oral BID Gauri Ortiz PA-C 2 tablet at 08/04/252208 [2] Past Medical History: Diagnosis Date Arthritis [...] VASECTOMY 40 years ago WISDOM TOOTH EXTRACTION [facility] Work Phone: 08-04-2025 Plan of care note The patient's goals for the shift include Patient will be HDS The clinical goals for the shift include Patient will be HDS [facility] Work Phone: 08-04-2025 Hospital Note Formatting of t his note might be different from the original. 89M with history of TIA, CAD, AAA, HTN, HLD, GERD, dysphagia s/p PEG, RA, vestibular migraines, and BPH transferred to [facility] on 08/04 after fall when getting out of bed CT head and cervical spine obtained. Injuries: right parafalcine SDH, resolution of previous right SAH. Lew scan with subacute R hemipelvis fractures, possible acute R sacral ala fracture. Reviewed by ortho and appears subacute. No point tenderness or worsened pain since fall. Repeat CTH stable. NSGY consulted, rec maintain SBP <160, Keppra x7 days. Patient admitted to trauma floor with telemetry. Geriatrics consulted. Speech therapy evaluated patient in setting of dysphagia. Failed MBSS 08/06. After goals of care with family, patient to continue to soft diet and nectar thickened liquids as desired. Required IVF and additional fluids per PEG for orthostatic hypotension. Patient medically ready for transfer to SNF. ,,,, [facility] Work Phone: 08-04-2025 Consult note Associated Order (s): Inpatient consult to Neurosurgery Images from the original note were not included. NEUROSURGERY CONSULT NOTE Date of Service: 08/04/2025 Attending Provider: Kelsey Patel MD Reason for Consultation: Inpatient consult to Neurosurgery Consult performed by: Enmanuel Melgoza MD Consult ordered by: DO Fawn Rmaos Andres is being seen today for a consult requested by Kelsey Patel MD for SDH. Subjective History of Present Illness: Andres is a 89 y.o. male on day 0 of admission with H/o AAA, infrarenal aneurysm, HTN, HLD, CAD (on ASA), 04/2024 GLF w rSDH, 08/04 p/w GLF, CTH R frontal para falcine SDH, rCTH stable. Patient reports trying to get out of bed and falling and hitting his head wo head strike. He last took ASA 08/03 AM. Patient denied any weakness, numbness, vision changes, fevers or chills. Review of Systems 10 point ROS is obtained and negative except the ones mentioned in the HPI Social History He reports that he quit smoking about 63 years ago. His smoking use included cigarettes and pipe. He has been exposed to tobacco smoke. He has never used smokeless tobacco. He reports that he does not currently use alcohol. He reports that he does not use drugs. Medical History Medical History[1] Surgical History Surgical History[2] Objective VITALS (24H): Temperature: [36.6 C (97.8 F)] 36.6 C (97.8 F) Heart Rate: [54-66] 54 Respirations: [9-20] 10 BP: (132-173)/(64-82) 132/66 INTAKE/OUTPUT:No intake or output data in the 24 hours ending 08/04/251738 VENT SETTINGS: Blood pressure 132/66, pulse 54, resp. rate 10, height 1.676 m (5' 6), weight 65.3 kg (144 lb), SpO2 96%. No intake/output data recorded. No intake/output data recorded. Output by Drain (mL) 08/02/25 07 - 08/02/25 1859 08/02/251899 - 08/03/25 0659 08/03/25 07 - 08/03/25 1859 08/03/25 1900 - 08/04/25 0659 08/04/25 07 - 08/04/25 173 Requested LDAs do not have output data documented. Exam: Constitutional: No acute distress Resp: breathing comfortably Cardio: well perfused GI: nondistended MSK: full range of motion Psych: appropriate Skin: no obvious lesions Neuro: Awake, A&Ox3 Cranial Nerves II-XII: PERRL, EOMI, Face symmetric, Facial SILT, Palate/Tongue midline and symmetric, shoulder shrugs symmetric, hearing intact to finger rubs bilaterally Motor: 5/5, Sensation: SILT throughout all extremities Medications Current Outpatient Medications Medication Instructions acetaminophen (TYLENOL) 650 mg, nasogastric tube, Every 6 hours scheduled acetaminophen 1,000 mg, Every 6 hours amitriptyline (ELAVIL) 10 mg, oral, Nightly aspirin 81 mg, Daily benazepril (LOTENSIN) 40 mg, oral, Daily cholecalciferol (VITAMIN D-3) 125 mcg, oral, Daily doxazosin (CARDURA) 4 mg, Daily escitalopram (LEXAPRO) 5 mg, oral, Daily folic acid (FOLVITE) 2 mg, oral, Daily [Paused] methotrexate (Trexall) 2.5 mg tablet 8 tablets, Once Weekly metoprolol tartrate (LOPRESSOR) 25 mg, oral, 2 times daily omeprazole (PRILOSEC) 40 mg, oral, Daily before breakfast pravastatin (PRAVACHOL) 40 mg, oral, Nightly Scheduled: PRN: Continuous: Scheduled Medications[3] PRN Medications[4] Continuous Medications[5] Diagnostic Results: LAB RESULTS: CBC Results from last 7 days Lab Units 08/04/25 1451 08/04/25 0837 WBC AUTO x10*3/uL 6.8 6.9 HEMOGLOBIN g/dL 12.4* 12.3* HEMATOCRIT % 37.1* 38.3* MCV fL 93 97 PLATELETS AUTO x10*3/uL 255 224 RFP Results from last 7 days Lab Units 08/04/25 1451 08/04/25 0837 GLUCOSE mg/dL 87 88 CALCIUM mg/dL 9.1 8.9 SODIUM mmol/L 143 142 POTASSIUM mmol/L 4.1 4.0 CO2 mmol/L 30 28 CHLORIDE mmol/L 105 107 BUN mg/dL 12 15 CREATININE mg/dL 0.77 0.84 Electrolyte Results from last 7 days Lab Units 08/04/25 1451 08/04/25 0837 CALCIUM mg/dL 9.1 8.9 MAGNESIUM mg/dL -- 1.76 COAG Imaging Results: CT head wo IV contrast Final Result Stable appearance of mixed density right parafalcine subdural hematoma without significant mass effect or midline shift. No new or enlarging intracranial hemorrhage. I personally reviewed the images/study and I agree with the findings as stated by resident physician Ramiro Weber MD. This study was interpreted at [place], [place]. MACRO: None Signed by: Gracie Carpenter 08/04/2025 4:05 PM Dictation workstation: [id number] CT chest abdomen pelvis w IV contrast Final Result CHEST 1. No acute traumatic injury within the chest. 2. Multiple subacute fractures of several anterior and right anterolateral ribs with callus formation, new compared to 05/10/2025 CT. ABDOMEN - PELVIS 1. Diffuse osteopenia, with likely acute insufficiency fracture of the right sacral ala. 2. Multiple subacute to remote appearing fractures within the right hemipelvis, as described. 3. Stable appearance of large infrarenal aortic aneurysm measuring up to 4.9 cm. 4. Additional chronic findings as described above. I personally reviewed the images/study and I agree with Jim Mayfield MD's findings as stated. This study was interpreted at [place], [place]. MACRO: None Signed by: Radha Raza 08/04/2025 5:23 PM Dictation workstation: [id number] CT lumbar spine retrospective reconstruction protocol Final Result 1. No acute fracture or traumatic malalignment of the thoracic or lumbar spine. 2. Lucency through the inferior right sacral wing was present on prior CT lumbar spine from 05/10/2025 and likely reflects a nonacute sacral insufficiency fracture. 3. See separately dictated CT chest abdomen pelvis. I personally reviewed the images/study and I agree with the findings as stated by resident physician Ramiro Weber MD. This study was interpreted at [place], [place]. MACRO: None. Signed by: Gracie Carpenter 08/04/2025 4:13 PM Dictation workstation: [id number] CT thoracic spine retrospective reconstruction protocol Final Result 1. No acute fracture or traumatic malalignment of the thoracic or lumbar spine. 2. Lucency through the inferior right sacral wing was present on prior CT lumbar spine from 05/10/2025 and likely reflects a nonacute sacral insufficiency fracture. 3. See separately dictated CT chest abdomen pelvis. I personally reviewed the images/study and I agree with the findings as stated by resident physician Ramiro Weber MD. This study was interpreted at [facility], [place], [place]. MACRO: None. Signed by: Gracie Carpenter 08/04/2025 4:13 PM Dictation workstation: [id number] XR hip right with pelvis when performed 2 or 3 views Final Result Mildly displaced fractures through the right superior and right inferior pubic rami with callus formation suggestive of subacute chronicity. Remote left inferior pubic ramus as well. No other fracture seen about the right hip. Severe right hip osteoarthritis. MACRO: None Signed by: Clement Estevez 08/04/2025 3:05 PM Dictation workstation: [id number] XR femur right 2+ views Final Result Mildly displaced fractures through the right superior and right inferior pubic rami with callus formation suggestive of subacute chronicity. Remote left inferior pubic ramus as well. No other fracture seen about the right hip. Severe right hip osteoarthritis. MACRO: None Signed by: Clement Estevez 08/04/2025 3:05 PM Dictation workstation: [id number] Assessment/Plan Assessment: Fawn Cameron 89 y.o. male H/o AAA, infrarenal aneurysm, HTN, HLD, CAD (on ASA), 04/2024 GLF w rSDH, 08/04 p/w GLF, CTH R frontal para falcine SDH, rCTH stable Plan: Keep SBP <160, ASA restart PBD3 (08/07) Keppra 7 days Further further Neurosurgical Recommendations. Neurosurgery will sign off, please feel free to reach out if there are any additional concerns Enmanuel Melgoza MD Department of Neurosurgery [facility] Note authored by resident on neurosurgery team, with all questions [place] [phone] Plan not finalized until note signed by attending [1] Past Medical History: Diagnosis Date Arthritis [...] 40 years ago WISDOM TOOTH EXTRACTION [3] levETIRAcetam, 500 mg, intravenous, BID [4] [5] niCARdipine, 0-15 mg/hr Cosigned by Chico Navarro MD at 08/05/2025 3:58 PM EDT [facility] Work Phone: 08-04-2025 History and physical note [facility] TRAUMA SERVICE - HISTORY AND PHYSICAL / CONSULT Patient Name: Fawn Cameron Admit Date: [id number] : 1935 AGE: 89 y.o. GENDER: male ======== MECHANISM OF INJURY / CHIEF COMPLAINT: 89 yo M s/p fall this am when getting out of bed. Pt. [place] weak and legs gave out when getting gup this am. Went to osh, CT head and cervical spine obtained. Injuries: right parafalcine SDH, resolution of previous right SAH. Transferred to [facility] for further trauma and NSGY eval. Recent admission to trauma service in April. 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 Patient was found to have right orbital [...] visits with ENT and ophthalmology upon discharge. Patient failed his speech evaluation because of aspiration, Dobbhoff is placed. Patient is tolerating tube feeds and is at goal. Discharged to SNF. LOC (yes/no?): No Anticoagulant / Anti-platelet Rx? (for what dx?): ?ASA Referring Facility Name (N/A for scene EMR run): [facility] ED INJURIES: right parafalcine SDH OTHER MEDICAL PROBLEMS: GERD HTN Osteoarthritis PADMA CAD Remote TIA Infrarenal AAA INCIDENTAL FINDINGS: Stable appearance of large infrarenal aortic aneurysm measuring up to 4.9 cm Multiple subacute to remote appearing fractures within the right hemipelvis, callused right rib fx ======== ADMISSION PLAN OF CARE: Repeat head ct, stable Trauma lew scan completed, no additional acute injuries identified OSH labs stable Med rec completed by jv GARCIA Neuro checks Pain control Keppra given in ED During last admission required dobhoff. At facility patient was discharge to a peg tube was placed. Current diet [place] thick liquids and easy to chew. Admit to telemetry floor SCDs, hold lvx in setting of acute head bleed Geriatrics consult IS Repeat lab in am Strict I/Os Resume home medications as appropriate Consultants notified (specialty, provider name, time): NSGY consulted by ED Pt. And plan discussed with Dr. Mark. Elaine Madrigal, [facility] Trauma Surgery [id number] Total face to face time spent with patient/family of 35 minutes, with >50% of the time spent discussing plan of care/management, counseling/educating on disease processes, explaining results of diagnostic testing. ======== PAST MEDICAL HISTORY: PMH: GERD HTN Osteoarthritis PADMA CAD Remote TIA Infrarenal AAA Medical History[1] PSH: reviewed Surgical History[2] FH: Not pertinent to current traumatic events Family History[3] SOCIAL HISTORY: Smoking: No Tobacco Use History[4] Alcohol: No Social History Substance and Sexual Activity Alcohol Use Not Currently Drug use: No MEDICATIONS: Pharmacy completed formal med rec. Prior to Admission medications Medication Sig Start Date End Date Taking? Authorizing Provider acetaminophen (Tylenol) 325 mg tablet 2 tablets (650 mg) by nasogastric tube route every 6 hours. Patient not taking: Reported on 08/04/2025 05/20/25 Hien Ramesh PA-C acetaminophen 500 mg powder in packet Take 1,000 mg by mouth every 6 hours. Historical Provider, amitriptyline (Elavil) 10 mg tablet Take 1 tablet (10 mg) by mouth once daily at bedtime. 07/31/25 07/31/26 Don Barrera MD aspirin 81 mg EC tablet Take 1 tablet (81 mg) by mouth once daily. Historical Provider, benazepril (Lotensin) 40 mg tablet Take 1 tablet (40 mg) by mouth once daily. 07/31/25 07/31/26 Don Barrera MD cholecalciferol (Vitamin D-3) 125 mcg (5,000 units) tablet Take 1 tablet (125 mcg) by mouth once daily. Patient not taking: Reported on 08/04/2025 05/21/25 Hien Ramesh PA-C doxazosin (Cardura) 4 mg tablet Take 1 tablet (4 mg) by mouth once daily. Historical Provider, escitalopram (Lexapro) 5 mg tablet Take 1 tablet (5 mg) by mouth once daily. 07/31/25 07/31/26 Don Barrera MD folic acid (Folvite) 1 mg tablet Take 2 tablets (2 mg) by mouth once daily. Patient taking differently: Take 1 tablet (1 mg) by mouth once daily. 07/31/25 07/31/26 Don Barrera MD [Paused] methotrexate (Trexall) 2.5 mg tablet Take 8 tablets (20 mg total) by mouth 1 (one) time per week. On Sundays Wait to take this until your doctor or other care provider tells you to start again. 04/07/20 Historical Provider, metoprolol tartrate (Lopressor) 25 mg tablet Take 1 tablet (25 mg) by mouth 2 times a day. 07/31/25 07/31/26 Don Barrera MD omeprazole (PriLOSEC) [address] capsule Take 1 capsule (40 mg) by mouth once daily in the morning. Take before meals. 07/31/25 07/31/26 Don Barrera MD pravastatin (Pravachol) 40 mg tablet Take 1 tablet (40 mg) by mouth once daily at bedtime. 07/31/25 07/31/26 Don Barrera MD alfuzosin (Uroxatral) 10 mg 24 hr tablet Take 1 tablet (10 mg) by mouth once daily. DO NOT CRUSH CHEW OR SPLIT 07/17/25 07/31/25 Don Barrera MD amitriptyline (Elavil) 10 mg tablet Take 1 tablet (10 mg) by mouth once daily at bedtime. 09/01/24 07/31/25 Don Barrera MD benazepril (Lotensin) 40 mg tablet Take 1 tablet (40 mg) by mouth once daily. 09/01/24 07/31/25 Don Barrera MD escitalopram (Lexapro) 5 mg tablet Take 1 tablet (5 mg) by mouth once daily. 09/01/24 07/31/25 Don Barrera MD folic acid (Folvite) 1 mg tablet Take 2 tablets (2 mg) by mouth once daily. 09/01/24 07/31/25 Don Barrera MD metoprolol tartrate (Lopressor) 25 mg tablet Take 1 tablet (25 mg) by mouth 2 times a day. 09/01/24 07/31/25 Don Barrera MD omeprazole (PriLOSEC) [address] capsule Take 1 capsule (40 mg) by mouth once daily in the morning. Take before meals. 09/01/24 07/31/25 Don Barrera MD pravastatin (Pravachol) 40 mg tablet Take 1 tablet (40 mg) by mouth once daily at bedtime. 09/01/24 07/31/25 Don Barrera MD vit A/vit C/vit E/zinc/copper (PRESERVISION AREDS ORAL) Take 1 tablet by mouth 2 times a day. 08/04/25 Historical Provider, ALLERGIES: reviewed RX Allergies[5] REVIEW OF SYSTEMS: Review of Systems Constitutional: Negative. HENT: Negative. Eyes: Negative. Respiratory: Negative. Cardiovascular: Negative. Gastrointestinal: Negative. Endocrine: Negative. Genitourinary: Negative. Musculoskeletal: Chronic right shoulder pain Neurological: Negative. Psychiatric/Behavioral: Negative. PHYSICAL EXAM: PRIMARY SURVEY: Airway Airway is patent. Breathing Breathing is normal. Right breath sounds are normal. Left breath sounds are normal. Circulation Rate is regular. Pulses Radial: 2+ on the right; 2+ on the left. Pedal: 2+ on the right; 2+ on the left. Disability [place] Coma Score Eye:4 Verbal:5 Motor:6 15 Pupils Right Pupil: round and reactive Left Pupil: round and reactive Motor Strength Acid Washer Operator strength: 5/5 on the right 5/5 on the left Dorsiflex strength: 5/5 on the right 5/5 on the left Plantarflex strength: 5/5 on the right 5/5 on the left The patient does not have a sensory deficit. SECONDARY SURVEY/PHYSICAL EXAM: Physical Exam HENT: Head: Normocephalic and atraumatic. Right Ear: External ear normal. Left Ear: External ear normal. Mouth/Throat: Mouth: Mucous membranes are moist. Pharynx: Oropharynx is clear. Eyes: Extraocular Movements: Extraocular movements intact. Pupils: Pupils are equal, round, and reactive to light. Neck: Comments: C/t/l spine nontender, no step offs, no deformities, no tenderness Cardiovascular: Rate and Rhythm: Normal rate. Pulses: Normal pulses. Pulmonary: Effort: Pulmonary effort is normal. No respiratory distress. Comments: On room air Abdominal: General: There is no distension. Palpations: Abdomen is soft. Tenderness: There is no abdominal tenderness. Comments: Pelvis stable to compression. Right dull ache to palpation. Peg tube in place, clamped Musculoskeletal: Cervical back: Neck supple. Right lower leg: No edema. Left lower leg: No edema. Comments: Right shoulder tender to palpation(chronic) Skin: General: Skin is warm. Capillary Refill: Capillary refill takes less than 2 seconds. Neurological: Mental Status: He is alert and oriented to person, place, and time. Comments: Strength 5/5 x4 Psychiatric: Mood and Affect: Mood normal. Behavior: Behavior normal. IMAGING SUMMARY: CT Head:right parafalcine SDH CT C-Spine: Negative for acute injury. CT Chest/Abd/Pelvis: Negative for acute injury. LABS: Results from last 7 days Lab Units 08/04/25 1451 08/04/25 0837 WBC AUTO x10*3/uL 6.8 6.9 HEMOGLOBIN g/dL 12.4* 12.3* HEMATOCRIT % 37.1* 38.3* PLATELETS AUTO x10*3/uL 255 224 NEUTROS PCT AUTO % 73.1 75.3 LYMPHS PCT AUTO % 15.5 12.7 MONOS PCT AUTO % 9.1 8.8 EOS PCT AUTO % 1.3 2.2 Results from last 7 days Lab Units 08/04/25 0837 SODIUM mmol/L 142 POTASSIUM mmol/L 4.0 CHLORIDE mmol/L 107 CO2 mmol/L 28 BUN mg/dL 15 CREATININE mg/dL 0.84 CALCIUM mg/dL 8.9 GLUCOSE mg/dL 88 I have reviewed all laboratory and imaging results ordered/pertinent for this encounter. [1] Past Medical History: Diagnosis Date Arthritis [...] Name Age of Onset Heart murmur Mother [place] Obrecht Hyperlipidemia Mother [place] Obrecht Arthritis Mother [place] Obrecht Hearing loss Mother [place] Obrecht Hypertension Mother [place] Obrecht Vision loss Mother [place] Obrecht Other (CARDIAC DISORDER) Father Pneumonia Father Suicide Attempts Brother Heath Stroke Father Hearing loss Father 70 - 79 [4] Social History Tobacco Use Smoking Status Former Current packs/day: 0.00 Types: Cigarettes, Pipe Quit date: 04/22/1962 Years since quittin.3 Passive exposure: Past Smokeless Tobacco Never [5] No Known Allergies Cosigned by Vijay Mark MD at 08/04/2025 7:43 PM EDT [facility] Work Phone: 08-04-2025 History and physical note [facility] TRAUMA SERVICE - HISTORY AND PHYSICAL / CONSULT Patient Name: Fawn Cameron Admit Date: [id number] : 1935 AGE: 89 y.o. GENDER: male ======== MECHANISM OF INJURY / CHIEF COMPLAINT: 89 yo M s/p fall this am when getting out of bed. Pt. [place] weak and legs gave out when getting gup this am. Went to osh, CT head and cervical spine obtained. Injuries: right parafalcine SDH, resolution of previous right SAH. Transferred to [facility] for further trauma and NSGY eval. Recent admission to trauma service in April. 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 Patient was found to have right orbital [...] visits with ENT and ophthalmology upon discharge. Patient failed his speech evaluation because of aspiration, Dobbhoff is placed. Patient is tolerating tube feeds and is at goal. Discharged to SNF. LOC (yes/no?): No Anticoagulant / Anti-platelet Rx? (for what dx?): ?ASA Referring Facility Name (N/A for scene EMR run): [facility] ED INJURIES: right parafalcine SDH OTHER MEDICAL PROBLEMS: GERD HTN Osteoarthritis PADMA CAD Remote TIA Infrarenal AAA INCIDENTAL FINDINGS: Stable appearance of large infrarenal aortic aneurysm measuring up to 4.9 cm Multiple subacute to remote appearing fractures within the right hemipelvis, callused right rib fx ======== ADMISSION PLAN OF CARE: Repeat head ct, stable Trauma lew scan completed, no additional acute injuries identified OSH labs stable Med rec completed by jv GARCIA Neuro checks Pain control Keppra given in ED During last admission required dobhoff. At facility patient was discharge to a peg tube was placed. Current diet [place] thick liquids and easy to chew. Admit to telemetry floor SCDs, hold lvx in setting of acute head bleed Geriatrics consult IS Repeat lab in am Strict I/Os Resume home medications as appropriate Consultants notified (specialty, provider name, time): NSGY consulted by ED Pt. And plan discussed with Dr. Mark. Elaine Madrigal, [employer] Trauma Surgery [id number] Total face to face time spent with patient/family of 35 minutes, with >50% of the time spent discussing plan of care/management, counseling/educating on disease processes, explaining results of diagnostic testing. ======== PAST MEDICAL HISTORY: PMH: GERD HTN Osteoarthritis PADMA CAD Remote TIA Infrarenal AAA Medical History[1] PSH: reviewed Surgical History[2] FH: Not pertinent to current traumatic events Family History[3] SOCIAL HISTORY: Smoking: No Tobacco Use History[4] Alcohol: No Social History Substance and Sexual Activity Alcohol Use Not Currently Drug use: No MEDICATIONS: Pharmacy completed formal med rec. Prior to Admission medications Medication Sig Start Date End Date Taking? Authorizing Provider acetaminophen (Tylenol) 325 mg tablet 2 tablets (650 mg) by nasogastric tube route every 6 hours. Patient not taking: Reported on 08/04/2025 05/20/25 Hien Ramesh PA-C acetaminophen 500 mg powder in packet Take 1,000 mg by mouth every 6 hours. Historical Provider, amitriptyline (Elavil) 10 mg tablet Take 1 tablet (10 mg) by mouth once daily at bedtime. 07/31/25 07/31/26 Don Barrera MD aspirin 81 mg EC tablet Take 1 tablet (81 mg) by mouth once daily. Historical Provider, benazepril (Lotensin) 40 mg tablet Take 1 tablet (40 mg) by mouth once daily. 07/31/25 07/31/26 Don Barrera MD cholecalciferol (Vitamin D-3) 125 mcg (5,000 units) tablet Take 1 tablet (125 mcg) by mouth once daily. Patient not taking: Reported on 08/04/2025 05/21/25 Hien Ramesh PA-C doxazosin (Cardura) 4 mg tablet Take 1 tablet (4 mg) by mouth once daily. Historical Provider, escitalopram (Lexapro) 5 mg tablet Take 1 tablet (5 mg) by mouth once daily. 07/31/25 07/31/26 Don Barrera MD folic acid (Folvite) 1 mg tablet Take 2 tablets (2 mg) by mouth once daily. Patient taking differently: Take 1 tablet (1 mg) by mouth once daily. 07/31/25 07/31/26 Don Barrera MD [Paused] methotrexate (Trexall) 2.5 mg tablet Take 8 tablets (20 mg total) by mouth 1 (one) time per week. On Sundays Wait to take this until your doctor or other care provider tells you to start again. 04/07/20 Historical Provider, metoprolol tartrate (Lopressor) 25 mg tablet Take 1 tablet (25 mg) by mouth 2 times a day. 07/31/25 07/31/26 Don Barrera MD omeprazole (PriLOSEC) [address] capsule Take 1 capsule (40 mg) by mouth once daily in the morning. Take before meals. 07/31/25 07/31/26 Don Barrera MD pravastatin (Pravachol) 40 mg tablet Take 1 tablet (40 mg) by mouth once daily at bedtime. 07/31/25 07/31/26 Don Barrera MD alfuzosin (Uroxatral) 10 mg 24 hr tablet Take 1 tablet (10 mg) by mouth once daily. DO NOT CRUSH CHEW OR SPLIT 07/17/25 07/31/25 Don Barrera MD amitriptyline (Elavil) 10 mg tablet Take 1 tablet (10 mg) by mouth once daily at bedtime. 09/01/24 07/31/25 Don Barrera MD benazepril (Lotensin) 40 mg tablet Take 1 tablet (40 mg) by mouth once daily. 09/01/24 07/31/25 Don Barrera MD escitalopram (Lexapro) 5 mg tablet Take 1 tablet (5 mg) by mouth once daily. 09/01/24 07/31/25 Don Barrera MD folic acid (Folvite) 1 mg tablet Take 2 tablets (2 mg) by mouth once daily. 09/01/24 07/31/25 Don Barrera MD metoprolol tartrate (Lopressor) 25 mg tablet Take 1 tablet (25 mg) by mouth 2 times a day. 09/01/24 07/31/25 Don Barrera MD omeprazole (PriLOSEC) [address] capsule Take 1 capsule (40 mg) by mouth once daily in the morning. Take before meals. 09/01/24 07/31/25 Don Barrera MD pravastatin (Pravachol) 40 mg tablet Take 1 tablet (40 mg) by mouth once daily at bedtime. 09/01/24 07/31/25 Don Barrera MD vit A/vit C/vit E/zinc/copper (PRESERVISION AREDS ORAL) Take 1 tablet by mouth 2 times a day. 08/04/25 Historical Provider, ALLERGIES: reviewed RX Allergies[5] REVIEW OF SYSTEMS: Review of Systems Constitutional: Negative. HENT: Negative. Eyes: Negative. Respiratory: Negative. Cardiovascular: Negative. Gastrointestinal: Negative. Endocrine: Negative. Genitourinary: Negative. Musculoskeletal: Chronic right shoulder pain Neurological: Negative. Psychiatric/Behavioral: Negative. PHYSICAL EXAM: PRIMARY SURVEY: Airway Airway is patent. Breathing Breathing is normal. Right breath sounds are normal. Left breath sounds are normal. Circulation Rate is regular. Pulses Radial: 2+ on the right; 2+ on the left. Pedal: 2+ on the right; 2+ on the left. Disability [place] Coma Score Eye:4 Verbal:5 Motor:6 15 Pupils Right Pupil: round and reactive Left Pupil: round and reactive Motor Strength Acid Washer Operator strength: 5/5 on the right 5/5 on the left Dorsiflex strength: 5/5 on the right 5/5 on the left Plantarflex strength: 5/5 on the right 5/5 on the left The patient does not have a sensory deficit. SECONDARY SURVEY/PHYSICAL EXAM: Physical Exam HENT: Head: Normocephalic and atraumatic. Right Ear: External ear normal. Left Ear: External ear normal. Mouth/Throat: Mouth: Mucous membranes are moist. Pharynx: Oropharynx is clear. Eyes: Extraocular Movements: Extraocular movements intact. Pupils: Pupils are equal, round, and reactive to light. Neck: Comments: C/t/l spine nontender, no step offs, no deformities, no tenderness Cardiovascular: Rate and Rhythm: Normal rate. Pulses: Normal pulses. Pulmonary: Effort: Pulmonary effort is normal. No respiratory distress. Comments: On room air Abdominal: General: There is no distension. Palpations: Abdomen is soft. Tenderness: There is no abdominal tenderness. Comments: Pelvis stable to compression. Right dull ache to palpation. Peg tube in place, clamped Musculoskeletal: Cervical back: Neck supple. Right lower leg: No edema. Left lower leg: No edema. Comments: Right shoulder tender to palpation(chronic) Skin: General: Skin is warm. Capillary Refill: Capillary refill takes less than 2 seconds. Neurological: Mental Status: He is alert and oriented to person, place, and time. Comments: Strength 5/5 x4 Psychiatric: Mood and Affect: Mood normal. Behavior: Behavior normal. IMAGING SUMMARY: CT Head:right parafalcine SDH CT C-Spine: Negative for acute injury. CT Chest/Abd/Pelvis: Negative for acute injury. LABS: Results from last 7 days Lab Units 08/04/25 1451 08/04/25 0837 WBC AUTO x10*3/uL 6.8 6.9 HEMOGLOBIN g/dL 12.4* 12.3* HEMATOCRIT % 37.1* 38.3* PLATELETS AUTO x10*3/uL 255 224 NEUTROS PCT AUTO % 73.1 75.3 LYMPHS PCT AUTO % 15.5 12.7 MONOS PCT AUTO % 9.1 8.8 EOS PCT AUTO % 1.3 2.2 Results from last 7 days Lab Units 08/04/25 0837 SODIUM mmol/L 142 POTASSIUM mmol/L 4.0 CHLORIDE mmol/L 107 CO2 mmol/L 28 BUN mg/dL 15 CREATININE mg/dL 0.84 CALCIUM mg/dL 8.9 GLUCOSE mg/dL 88 I have reviewed all laboratory and imaging results ordered/pertinent for this encounter. [1] Past Medical History: Diagnosis Date Arthritis [...] Name Age of Onset Heart murmur Mother [place] Obrecht Hyperlipidemia Mother [place] Obrecht Arthritis Mother [place] Obrecht Hearing loss Mother [place] Obrecht Hypertension Mother [place] Obrecht Vision loss Mother [place] Obrecht Other (CARDIAC DISORDER) Father Pneumonia Father Suicide Attempts Brother Heath Stroke Father Hearing loss Father 70 - 79 [4] Social History Tobacco Use Smoking Status Former Current packs/day: 0.00 Types: Cigarettes, Pipe Quit date: 04/22/1962 Years since quittin.3 Passive exposure: Past Smokeless Tobacco Never [5] No Known Allergies Cosigned by Vijay Mark MD at 08/04/2025 7:43 PM EDT documented in this encounter [facility] Work Phone: 08-04-2025 Emergency department Triage note Pt arrives to the ED as a transfer from [facility] following fall at at home. Fell backwards while ambulating with walker, hit a wall and then fell to the ground. +headstrike, denies LOC, denies anticoagulation use. Pt reports being more weak since returning home from SNF- recovering from pelvic fracture and ICH. Pt arrives c/o headache and right groin pain on arrival to [facility] ED. A&Ox4. [facility] Work Phone: 08-04-2025 Emergency department Note Pt arrives to the ED as a transfer from [facility] following fall at at home. Fell backwards while ambulating with walker, hit a wall and then fell to the ground. +headstrike, denies LOC, denies anticoagulation use. Pt reports being more weak since returning home from SNF- recovering from pelvic fracture and ICH. Pt arrives c/o headache and right groin pain on arrival to [facility] ED. A&Ox4. History of Present Illness History provided by: Patient Limitations to History: None HPI: Fawn Cameron is a 89 y.o. male presenting as a transfer from outside hospital for subdural hematoma. Patient had a fall this morning when getting out of bed he felt weak and his legs gave out and he fell backwards hitting the back of his head. Outside hospital CT head and C-spine were obtained that showed right parafalcine subdural hematoma. Patient was transferred to [facility] for trauma and neurosurgery valuation. Patient recently had a mechanical fall in April and had bilateral pubic rami fractures and a sacral alae fracture on the right he was recently discharged from rehab and been working with PT at home with significant improvement. Patient is endorsing right hip pain which is worse than usual, he was able to advance his diet and has not been using his tube feeds for the last few weeks. Physical Exam Triage vitals: T HR 65 BP 173/73 RR 20 O2 98 % None (Room air) General: Awake, alert, in no acute distress Eyes: Gaze conjugate. No scleral icterus or injection HENT: Normo-cephalic, atraumatic. No stridor CV: Regular rate, regular rhythm. Radial pulses 2+ bilaterally Resp: Breathing non-labored, speaking in full sentences. Clear to auscultation bilaterally GI: Soft, non-distended, non-tender. PEG tube in place no surrounding erythema. MSK/Extremities: No gross bony deformities. Moving all extremities. Neurovascularly intact to bilateral upper and lower extremities. Skin: Warm. Appropriate color Neuro: Alert. Oriented. Face symmetric. Speech is fluent. Gross strength and sensation intact in b/l UE and LEs Psych: Appropriate mood and affect Medical Decision Making & ED Course Medical Decision Makin y.o. male presenting with new subdural hematoma after fall transfer from outside hospital. Triage vital signs reviewed and remarkable for hypertension patient is hemodynamically stable at this time. Neurosurgery and trauma service were consulted upon patient's arrival to the emergency department. Neurosurgery recommended Keppra and repeat CT head with suit which was obtained for stability scan. Additional imaging including PNL and chest abdomen pelvis were obtained. CT imaging showed subacute fractures that appeared healing, low concern for new acute fracture. Right sacral ala fracture dictated on CT lumbar spine likely reflects a nonacute sacral insufficiency fracture. There are multiple subacute fractures of the anterior ribs, infrarenal aortic aneurysm. Patient was given blood pressure control with labetalol with goal systolic less than 160. Repeat pressures less than 160, no indication for drip at this time. Patient is admitted to trauma service on telemetry floor for further care. ED Course: Diagnoses as of 08/04/251803 Head injury, initial encounter Independent Result Review and Interpretation: Relevant laboratory and radiographic results were reviewed and independently interpreted by myself. As necessary, they are commented on in the ED Course. Care Considerations: As documented above in MDM Disposition As a result of their workup, the patient will require admission to the hospital. The patient was informed of his diagnosis. The patient was given the opportunity to ask questions and I answered them. The patient agreed to be admitted to the hospital. Procedures Procedures Patient seen and discussed with ED attending physician. Katherine Potts DO Emergency Medicine Katherine Potts DO Resident 08/06/25 0822 Cosigned by Kelsey Patel MD at 08/06/2025 5:37 PM EDT Associated attestation - Kelsey Patel MD - 08/06/2025 5:37 PM EDT The patient was seen by the resident/fellow. I have personally performed a substantive portion of the encounter. I have seen and examined the patient; agree with the workup, evaluation, MDM, management and diagnosis. The care plan has been discussed with the resident; I have reviewed the resident s note and agree with the documented findings. documented in this encounter [facility] Work Phone: 08-04-2025 Physician Emergency department Note History of Present Illness History provided by: Patient Limitations to History: None HPI: Fawn Cameron is a 89 y.o. male presenting as a transfer from outside hospital for subdural hematoma. Patient had a fall this morning when getting out of bed he felt weak and his legs gave out and he fell backwards hitting the back of his head. Outside hospital CT head and C-spine were obtained that showed right parafalcine subdural hematoma. Patient was transferred to [facility] for trauma and neurosurgery valuation. Patient recently had a mechanical fall in April and had bilateral pubic rami fractures and a sacral alae fracture on the right he was recently discharged from rehab and been working with PT at home with significant improvement. Patient is endorsing right hip pain which is worse than usual, he was able to advance his diet and has not been using his tube feeds for the last few weeks. Physical Exam Triage vitals: T HR 65 BP 173/73 RR 20 O2 98 % None (Room air) General: Awake, alert, in no acute distress Eyes: Gaze conjugate. No scleral icterus or injection HENT: Normo-cephalic, atraumatic. No stridor CV: Regular rate, regular rhythm. Radial pulses 2+ bilaterally Resp: Breathing non-labored, speaking in full sentences. Clear to auscultation bilaterally GI: Soft, non-distended, non-tender. PEG tube in place no surrounding erythema. MSK/Extremities: No gross bony deformities. Moving all extremities. Neurovascularly intact to bilateral upper and lower extremities. Skin: Warm. Appropriate color Neuro: Alert. Oriented. Face symmetric. Speech is fluent. Gross strength and sensation intact in b/l UE and LEs Psych: Appropriate mood and affect Medical Decision Making & ED Course Medical Decision Makin y.o. male presenting with new subdural hematoma after fall transfer from outside hospital. Triage vital signs reviewed and remarkable for hypertension patient is hemodynamically stable at this time. Neurosurgery and trauma service were consulted upon patient's arrival to the emergency department. Neurosurgery recommended Keppra and repeat CT head with suit which was obtained for stability scan. Additional imaging including PNL and chest abdomen pelvis were obtained. CT imaging showed subacute fractures that appeared healing, low concern for new acute fracture. Right sacral ala fracture dictated on CT lumbar spine likely reflects a nonacute sacral insufficiency fracture. There are multiple subacute fractures of the anterior ribs, infrarenal aortic aneurysm. Patient was given blood pressure control with labetalol with goal systolic less than 160. Repeat pressures less than 160, no indication for drip at this time. Patient is admitted to trauma service on telemetry floor for further care. ED Course: Diagnoses as of 08/04/251803 Head injury, initial encounter Independent Result Review and Interpretation: Relevant laboratory and radiographic results were reviewed and independently interpreted by myself. As necessary, they are commented on in the ED Course. Care Considerations: As documented above in MDM Disposition As a result of their workup, the patient will require admission to the hospital. The patient was informed of his diagnosis. The patient was given the opportunity to ask questions and I answered them. The patient agreed to be admitted to the hospital. Procedures Procedures Patient seen and discussed with ED attending physician. Katherine Potts DO Emergency Medicine Katherine Potts DO Resident 08/06/25821 Cosigned by Kelsey Patel MD at 08/06/2025 5:37 PM EDT Associated attestation - Kelsey Patel MD - 08/06/2025 5:37 PM EDT The patient was seen by the resident/fellow. I have personally performed a substantive portion of the encounter. I have seen and examined the patient; agree with the workup, evaluation, MDM, management and diagnosis. The care plan has been discussed with the resident; I have reviewed the resident s note and agree with the documented findings. [facility] Work Phone: 08-04-2025 Physician Emergency department Note HPI Chief Complaint Patient presents with Fall Pt states he went to reach for his walker, lost his balance and fell back against fall. Did hit head. Denies LOC. Denies other injury. C/o headache and weakness. Patient presents to the emergency department after a fall at home. Patient has become progressively more weak since returning home from skilled rehab recently. He is noted to be recovering from pelvic fractures as well as intracranial hemorrhage. Patient reports no pain at this time. States that he became weak while attempting to ambulate with his walker this morning and fell backwards, struck a wall, and fell to the ground. Was able to get up and ambulate with the assistance of family members who called the paramedics. Paramedics found the patient sitting on the bed at the time of arrival. Arrives not confused and provides a full history. History provided by: Patient and EMS personnel key holder used: No Patient History Medical History[1] Surgical History[2] Family History[3] Social History[4] Physical Exam ED Triage Vitals [08/04/25 0727] Temperature Heart Rate Respirations BP 36.6 C (97.8 F) 61 16 168/64 Pulse Ox Temp Source Heart Rate Source Patient Position 98 % Temporal -- -- BP Location FiO2 (%) -- -- Physical Exam Vitals and nursing note reviewed. Constitutional: General: He is not in acute distress. Appearance: Normal appearance. He is normal weight. He is not ill-appearing, toxic-appearing or diaphoretic. HENT: Head: Normocephalic and atraumatic. Nose: Nose normal. No rhinorrhea. Neck: Comments: Trachea is midline Cardiovascular: Rate and Rhythm: Normal rate and regular rhythm. Heart sounds: No murmur heard. Pulmonary: Effort: Pulmonary effort is normal. Breath sounds: Normal breath sounds. No wheezing. Abdominal: General: Abdomen is flat. Bowel sounds are normal. There is no distension. Palpations: Abdomen is soft. Tenderness: There is no abdominal tenderness. There is no right CVA tenderness or left CVA tenderness. Musculoskeletal: General: No swelling, tenderness, deformity or signs of injury. Normal range of motion. Cervical back: Normal range of motion. Skin: General: Skin is warm and dry. Coloration: Skin is jaundiced. Findings: No rash. Neurological: General: No focal deficit present. Mental Status: He is alert and oriented to person, place, and time. Mental status is at baseline. Cranial Nerves: No cranial nerve deficit. Sensory: No sensory deficit. Coordination: Coordination normal. Psychiatric: Mood and Affect: Mood normal. Behavior: Behavior normal. Thought Content: Thought content normal. Judgment: Judgment normal. ED Course & MDM No data recorded Medical Decision Making Twelve-lead EKG was interpreted by myself this was noted to contribute directly to patient care. Study reveals normal sinus rhythm at 69 bpm, normal axis, normal R wave progression, no acute ischemic changes, no S1 Q3 T3 is identified Imaging studies today show evidence of a new subdural hematoma. In light of this finding I feel the patient requires transfer to a higher level of care. I spoke to the ER attending and the trauma attending at [facility] where the patient was just recently discharged from. Dr. Rivera accepted the patient to her service. Patient will be transferred by local squad in stable condition to the excepting facility/emergency room. Critical care time for this patient excluding billable procedures is 30 minutes secondary to multiple repeat physical examinations, chart review, and interpretation of radiographic studies. Procedure Procedures [1] Past Medical History: Diagnosis [...] Name Age of Onset Heart murmur Mother [place] Obrecht Hyperlipidemia Mother [place] Obrecht Arthritis Mother [place] Obrecht Hearing loss Mother [place] Obrecht Hypertension Mother [place] Obrecht Vision loss Mother [place] Obrecht Other (CARDIAC DISORDER) Father Pneumonia Father Suicide Attempts Brother Heath Stroke Father Hearing loss Father 70 - 79 [4] Social History Tobacco Use Smoking status: Former Current packs/day: 0.00 Types: Cigarettes, Pipe Quit date: 04/22/1962 Years since quittin.3 Passive exposure: Past Smokeless tobacco: Never Vaping Use Vaping status: Never Used Substance Use Topics Alcohol use: Not Currently Drug use: Never Santiago Menendez DO 08/04/25 1050 T [facility] Work Phone: 08-04-2025 Emergency department Note HPI Chief Complaint Patient presents with Fall Pt states he went to reach for his walker, lost his balance and fell back against fall. Did hit head. Denies LOC. Denies other injury. C/o headache and weakness. Patient presents to the emergency department after a fall at home. Patient has become progressively more weak since returning home from skilled rehab recently. He is noted to be recovering from pelvic fractures as well as intracranial hemorrhage. Patient reports no pain at this time. States that he became weak while attempting to ambulate with his walker this morning and fell backwards, struck a wall, and fell to the ground. Was able to get up and ambulate with the assistance of family members who called the paramedics. Paramedics found the patient sitting on the bed at the time of arrival. Arrives not confused and provides a full history. History provided by: Patient and EMS personnel key holder used: No Patient History Medical History[1] Surgical History[2] Family History[3] Social History[4] Physical Exam ED Triage Vitals [08/04/25 0727] Temperature Heart Rate Respirations BP 36.6 C (97.8 F) 61 16 168/64 Pulse Ox Temp Source Heart Rate Source Patient Position 98 % Temporal -- -- BP Location FiO2 (%) -- -- Physical Exam Vitals and nursing note reviewed. Constitutional: General: He is not in acute distress. Appearance: Normal appearance. He is normal weight. He is not ill-appearing, toxic-appearing or diaphoretic. HENT: Head: Normocephalic and atraumatic. Nose: Nose normal. No rhinorrhea. Neck: Comments: Trachea is midline Cardiovascular: Rate and Rhythm: Normal rate and regular rhythm. Heart sounds: No murmur heard. Pulmonary: Effort: Pulmonary effort is normal. Breath sounds: Normal breath sounds. No wheezing. Abdominal: General: Abdomen is flat. Bowel sounds are normal. There is no distension. Palpations: Abdomen is soft. Tenderness: There is no abdominal tenderness. There is no right CVA tenderness or left CVA tenderness. Musculoskeletal: General: No swelling, tenderness, deformity or signs of injury. Normal range of motion. Cervical back: Normal range of motion. Skin: General: Skin is warm and dry. Coloration: Skin is jaundiced. Findings: No rash. Neurological: General: No focal deficit present. Mental Status: He is alert and oriented to person, place, and time. Mental status is at baseline. Cranial Nerves: No cranial nerve deficit. Sensory: No sensory deficit. Coordination: Coordination normal. Psychiatric: Mood and Affect: Mood normal. Behavior: Behavior normal. Thought Content: Thought content normal. Judgment: Judgment normal. ED Course & MDM No data recorded Medical Decision Making Twelve-lead EKG was interpreted by myself this was noted to contribute directly to patient care. Study reveals normal sinus rhythm at 69 bpm, normal axis, normal R wave progression, no acute ischemic changes, no S1 Q3 T3 is identified Imaging studies today show evidence of a new subdural hematoma. In light of this finding I feel the patient requires transfer to a higher level of care. I spoke to the ER attending and the trauma attending at [facility] where the patient was just recently discharged from. Dr. Rivera accepted the patient to her service. Patient will be transferred by local squad in stable condition to the excepting facility/emergency room. Critical care time for this patient excluding billable procedures is 30 minutes secondary to multiple repeat physical examinations, chart review, and interpretation of radiographic studies. Procedure Procedures [1] Past Medical History: Diagnosis [...] Name Age of Onset Heart murmur Mother [place] Obrecht Hyperlipidemia Mother [place] Obrecht Arthritis Mother [place] Obrecht Hearing loss Mother [place] Obrecht Hypertension Mother [place] Obrecht Vision loss Mother [place] Obrecht Other (CARDIAC DISORDER) Father Pneumonia Father Suicide Attempts Brother Heath Stroke Father Hearing loss Father 70 - 79 [4] Social History Tobacco Use Smoking status: Former Current packs/day: 0.00 Types: Cigarettes, Pipe Quit date: 04/22/1962 Years since quittin.3 Passive exposure: Past Smokeless tobacco: Never Vaping Use Vaping status: Never Used Substance Use Topics Alcohol use: Not Currently Drug use: Never Santiago Menendez DO 08/04/25 1050 documented in this encounter [facility] Work Phone: 07-31-2025 Evaluation + Plan note Associated Problem(s): Hypertension Orders: Follow Up In Primary Care - Established Follow Up In Primary Care - Established; Future [facility] Work Phone: 07-31-2025 Evaluation + Plan note Associated Problem(s): 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 Orders: Follow Up In Primary Care - Established omeprazole (PriLOSEC) [address] capsule; Take 1 capsule (40 mg) by mouth once daily in the morning. Take before meals. Follow Up In Primary Care - Established; Future [facility] Work Phone: 07-31-2025 Evaluation + Plan note Associated Problem(s): Migraine with visual aura Orders: amitriptyline (Elavil) 10 mg tablet; Take 1 tablet (10 mg) by mouth once daily at bedtime. Follow Up In Primary Care - Established; Future [facility] Work Phone: 07-31-2025 Evaluation + Plan note Associated Problem(s): Hypertension Blood pressure slightly low today in the office, continue with current blood pressure medications. Blood testing done at last office visit were reviewed and all appear to be stable. Orders: benazepril (Lotensin) 40 mg tablet; Take 1 tablet (40 mg) by mouth once daily. metoprolol tartrate (Lopressor) 25 mg tablet; Take 1 tablet (25 mg) by mouth 2 times a day. Follow Up In Primary Care - Established; Future [facility] Work Phone: 07-31-2025 Evaluation + Plan note Associated Problem(s): Fall, initial encounter Continue with home health care and therapies Orders: Follow Up In Primary Care - Established; Future [facility] Work Phone: 07-31-2025 Evaluation + Plan note Associated Problem(s): Fracture of orbital roof (Multi) Orders: Follow Up In Primary Care - Established; Future [facility] Work Phone: 07-31-2025 Evaluation + Plan note Associated Problem(s): MARIANGEL (generalized anxiety disorder) Orders: escitalopram (Lexapro) 5 mg tablet; Take 1 tablet (5 mg) by mouth once daily. Follow Up In Primary Care - Established; Future [facility] Work Phone: 07-31-2025 Evaluation + Plan note Associated Problem(s): Hyperlipidemia Orders: pravastatin (Pravachol) 40 mg tablet; Take 1 tablet (40 mg) by mouth once daily at bedtime. Follow Up In Primary Care - Established; Future [facility] Work Phone: 07-31-2025 Evaluation + Plan note Associated Problem(s): Dysphagia Still waiting to see speech therapist, order modified barium swallow to assess swallowing capability, patient would like to try to get PEG tube removed to soon as he can, is able to maintain soft diet at this point, weight is stable. Orders: FL modified barium swallow study; Future Follow Up In Primary Care - Established; Future T [facility] Work Phone: 07-31-2025 Evaluation + Plan note Associated Problem(s): BPH (benign prostatic hyperplasia) Increasing urination and incontinence at times, unable to take Uroxatrol because he cannot swallow, referred to urology for further evaluation and help. Orders: Follow Up In Primary Care - Established; Future Referral to Urology; Future [facility] Work Phone: 07-31-2025 Evaluation + Plan note Associated Problem(s): Nocturia Orders: Follow Up In Primary Care - Established; Future Referral to Urology; Future T [facility] Work Phone: 07-31-2025 History of Present illness Narrative Subjective Reason for Visit: Fawn Cameron is an 89 y.o. male here for a Medicare Wellness visit. Past Medical, Surgical, and Family History reviewed and updated in chart. Reviewed all medications by prescribing practitioner or clinical pharmacist (such as prescriptions, OTCs, herbal therapies and supplements) and documented in the medical record. HPI No headache, chest pain, shortness of breath, dizziness, lightheadedness, or edema Taking PPI daily without breakthrough symptoms. Reviewed dietary, caffeine, tobacco, alcohol, and NSAID use. No dyspepsia, dysphagia, reflux, melena, or abdominal pain. Having some trouble getting ST, has C for PT, and nurse, OT to see in the next week Using a walker to ambulate Some pain in right groin and shoulder, APAP helps with pain Bowels moving OK, + nocturia and urine frequency, had not seen urology (had seen [facility] in the past), last swallowing study done in June Patient Care Team: Don Barrera MD as PCP - General (Family Medicine) Don Barrera MD as PCP - [facility] Attributed Provider Daryl Dyson as Code Inspector (Case Management) Review of Systems Constitutional: Negative for activity change, appetite change and fatigue. Respiratory: Negative for cough, chest tightness and shortness of breath. Cardiovascular: Negative for chest pain, palpitations and leg swelling. Gastrointestinal: Negative for abdominal pain, constipation, diarrhea, nausea and vomiting. Genitourinary: Positive for frequency. Musculoskeletal: Positive for gait problem. Neurological: Negative for dizziness, weakness, light-headedness and headaches. Psychiatric/Behavioral: Negative for decreased concentration and sleep disturbance. The patient is not nervous/anxious. Objective Vitals: BP 90/50 Pulse 68 Ht 1.676 m (5' 6) Wt 65.2 kg (143 lb 12.8 oz) SpO2 95% BMI 23.21 kg/m Physical Exam Vitals and nursing note [...] tenderness. There is no guarding or rebound. Comments: PEG site in position without erythema or drainage Musculoskeletal: Cervical back: Normal range of motion and neck supple. Skin: General: Skin is warm and dry. Capillary Refill: Capillary refill takes less than 2 seconds. Neurological: Mental Status: He is alert. Psychiatric: Mood and Affect: Mood normal. Behavior: Behavior normal. Assessment & Plan Primary hypertension Orders: Follow Up In Primary Care - Established Follow Up In Primary Care - Established; Future 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 Orders: Follow Up In Primary Care - Established omeprazole (PriLOSEC) [address] capsule; Take 1 capsule (40 mg) by mouth once daily in the morning. Take before meals. Follow Up In Primary Care - Established; Future Migraine with visual aura Orders: amitriptyline (Elavil) 10 mg tablet; Take 1 tablet (10 mg) by mouth once daily at bedtime. Follow Up In Primary Care - Established; Future Hypertension, unspecified type Blood pressure slightly low today in the office, continue with current blood pressure medications. Blood testing done at last office visit were reviewed and all appear to be stable. Orders: benazepril (Lotensin) 40 mg tablet; Take 1 tablet (40 mg) by mouth once daily. metoprolol tartrate (Lopressor) 25 mg tablet; Take 1 tablet (25 mg) by mouth 2 times a day. Follow Up In Primary Care - Established; Future Fall, initial encounter Continue with home health care and therapies Orders: Follow Up In Primary Care - Established; Future Open fracture of roof of right orbit, initial encounter (Multi) Orders: Follow Up In Primary Care - Established; Future MARIANGEL (generalized anxiety disorder) Orders: escitalopram (Lexapro) 5 mg tablet; Take 1 tablet (5 mg) by mouth once daily. Follow Up In Primary Care - Established; Future Vertigo Orders: folic acid (Folvite) 1 mg tablet; Take 2 tablets (2 mg) by mouth once daily. Follow Up In Primary Care - Established; Future Hyperlipidemia, unspecified hyperlipidemia type Orders: pravastatin (Pravachol) 40 mg tablet; Take 1 tablet (40 mg) by mouth once daily at bedtime. Follow Up In Primary Care - Established; Future Benign prostatic 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 lower urinary tract symptoms Increasing urination and incontinence at times, unable to take Uroxatrol because he cannot swallow, referred to urology for further evaluation and help. Orders: Follow Up In Primary Care - Established; Future Referral to Urology; Future Nocturia Orders: Follow Up In Primary Care - Established; Future Referral to Urology; Future Dysphagia, unspecified type Still waiting to see speech therapist, order modified barium swallow to assess swallowing capability, patient would like to try to get PEG tube removed to soon as he can, is able to maintain soft diet at this point, weight is stable. Orders: FL modified barium swallow study; Future Follow Up In Primary Care - Established; Future Routine general medical examination at health care facility documented in this encounter [facility] Work Phone: 07-31-2025 Miscellaneous Notes Associated Problem(s): Hypertension Orders: Follow Up In Primary Care - Established Follow Up In Primary Care - Established; Future Associated Problem(s): 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 Orders: Follow Up In Primary Care - Established omeprazole (PriLOSEC) [address] capsule; Take 1 capsule (40 mg) by mouth once daily in the morning. Take before meals. Follow Up In Primary Care - Established; Future Associated Problem(s): Migraine with visual aura Orders: amitriptyline (Elavil) 10 mg tablet; Take 1 tablet (10 mg) by mouth once daily at bedtime. Follow Up In Primary Care - Established; Future Associated Problem(s): Hypertension Blood pressure slightly low today in the office, continue with current blood pressure medications. Blood testing done at last office visit were reviewed and all appear to be stable. Orders: benazepril (Lotensin) 40 mg tablet; Take 1 tablet (40 mg) by mouth once daily. metoprolol tartrate (Lopressor) 25 mg tablet; Take 1 tablet (25 mg) by mouth 2 times a day. Follow Up In Primary Care - Established; Future Associated Problem(s): Fall, initial encounter Continue with home health care and therapies Orders: Follow Up In Primary Care - [facility]; Future Associated Problem(s): Fracture of orbital roof (Multi) Orders: Follow Up In Primary Care - [facility]; Future Associated Problem(s): MARIANGEL (generalized anxiety disorder) Orders: escitalopram (Lexapro) 5 mg tablet; Take 1 tablet (5 mg) by mouth once daily. Follow Up In Primary Care - [facility]; Future Associated Problem(s): Hyperlipidemia Orders: pravastatin (Pravachol) 40 mg tablet; Take 1 tablet (40 mg) by mouth once daily at bedtime. Follow Up In Primary Care - [facility]; Future Associated Problem(s): Dysphagia Still waiting to see speech therapist, order modified barium swallow to assess swallowing capability, patient would like to try to get PEG tube removed to soon as he can, is able to maintain soft diet at this point, weight is stable. Orders: FL modified barium swallow study; Future Follow Up In Primary Care - [facility]; Future Associated Problem(s): BPH (benign prostatic hyperplasia) Increasing urination and incontinence at times, unable to take Uroxatrol because he cannot swallow, referred to urology for further evaluation and help. Orders: Follow Up In Primary Care - Established; Future Referral to Urology; Future Associated Problem(s): Nocturia Orders: Follow Up In Primary Care - Established; Future Referral to Urology; Future documented in this encounter [facility] Work Phone: 07-17-2025 Evaluation + Plan note Associated Problem(s): Fracture of sacrum (Multi) Getting along now using a wheeled walker, physical therapy working with the patient, denies any pain. [facility] Work Phone: 07-17-2025 Evaluation + Plan note Associated Problem(s): Fall, initial encounter Post fall in April where the patient sustained fractures to the face, subdural and subarachnoid hemorrhage, pelvic fractures, prolonged hospitalization in [place] and transition to [facility] for intensive rehab for over 3 weeks. Patient recently discharged just this past week, has home health care established plan to recheck again in 2 weeks. No areas of open areas on skin. [facility] Work Phone: 07-17-2025 Miscellaneous Notes Associated Problem(s): Fracture of sacrum (Multi) Getting along now using a wheeled walker, physical therapy working with the patient, denies any pain. Associated Problem(s): Fall, initial encounter Post fall in April where the patient sustained fractures to the face, subdural and subarachnoid hemorrhage, pelvic fractures, prolonged hospitalization in [place] and transition to [facility] for intensive rehab for over 3 weeks. Patient recently discharged just this past week, has home health care established plan to recheck again in 2 weeks. No areas of open areas on skin. Associated Problem(s): BPH (benign prostatic hyperplasia) Having some enuresis and urine incontinence at night, Uroxatrol was discontinued in the hospital, will try to restart this medication. Associated Problem(s): 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 Has PEG tube in place due to trouble swallowing after fall due to fractures of the face, did see GI in the hospital, had PEG tube placed, is following with speech therapy, would like to have his PEG tube removed, is able to tolerate diet and maintain weight, is using thickened liquids, advised the patient that I would like to have speech therapy evaluation and make sure that he is maintaining weight with oral feeds before we remove his PEG tube. Associated Problem(s): Fracture of orbital roof (Multi) Post fall resulting in fractures of the orbit, denies any diplopia, posthospitalization for subdural hematoma and mild arachnoid hemorrhage. CT scan done last week at [facility] was negative for any new bleeding, bleeding has resolved and fractures appear to be healed. Associated Problem(s): Hypertension Blood pressure stable, amlodipine stopped in the hospital, no complaints. Check electrolyte and renal function documented in this encounter [facility] Work Phone: 07-17-2025 Evaluation + Plan note Associated Problem(s): BPH (benign prostatic hyperplasia) Having some enuresis and urine incontinence at night, Uroxatrol was discontinued in the hospital, will try to restart this medication. [facility] Work Phone: 07-17-2025 Evaluation + Plan note Associated Problem(s): 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 Has PEG tube in place due to trouble swallowing after fall due to fractures of the face, did see GI in the hospital, had PEG tube placed, is following with speech therapy, would like to have his PEG tube removed, is able to tolerate diet and maintain weight, is using thickened liquids, advised the patient that I would like to have speech therapy evaluation and make sure that he is maintaining weight with oral feeds before we remove his PEG tube. [facility] Work Phone: 07-17-2025 Evaluation + Plan note Associated Problem(s): Fracture of orbital roof (Multi) Post fall resulting in fractures of the orbit, denies any diplopia, posthospitalization for subdural hematoma and mild arachnoid hemorrhage. CT scan done last week at [facility] was negative for any new bleeding, bleeding has resolved and fractures appear to be healed. [facility] Work Phone: 07-17-2025 Evaluation + Plan note Associated Problem(s): Hypertension Blood pressure stable, amlodipine stopped in the hospital, no complaints. Check electrolyte and renal function [facility] Work Phone: 07-17-2025 History of Present illness Narrative Subjective Patient ID: Andres Cameron is a 89 y.o. male who presents for Hosp F/U Fall. HPI Patient sustained a fall on 10 May at the hospital while volunteering, resulting in a right orbital floor and roof fracture small subdural hematoma and a trace frontal parietal subarachnoid hematoma, bilateral pubic rami fractures and a fracture of the sacral ala, all fractures were treated nonoperatively, patient was in the hospital at [facility] from the to 20 May. He was then transition to inpatient rehab stay at [facility] and was just discharged in the past week. Home yesterday, established HHC for nurse, PT/OT/ST Has trouble swallowing liquids, using thickener, has a PEG tube Eating solids, no coughing with eating No bowel issues, using a walker, Had a fall last week in rehab and injured left elbow Had CT last week after fall (normal) Using APAP for pain Review of Systems Constitutional: Negative for activity change, appetite change, fatigue and unexpected weight change. HENT: Negative for ear pain, nosebleeds, rhinorrhea, sneezing and trouble swallowing. Respiratory: Negative for cough, shortness of breath and wheezing. Cardiovascular: Negative for chest pain, palpitations and leg swelling. Gastrointestinal: Negative for abdominal distention, abdominal pain, constipation, diarrhea, nausea and vomiting. Genitourinary: Positive for enuresis. Negative for difficulty urinating. Musculoskeletal: Positive for gait problem. Negative for arthralgias. Skin: Negative for rash. Neurological: Negative for dizziness, weakness, light-headedness, numbness and headaches. Hematological: Negative for adenopathy. Psychiatric/Behavioral: Negative for behavioral problems, dysphoric mood and sleep disturbance. The patient is not nervous/anxious. All other systems reviewed and are negative. Objective BP 100/60 Pulse 99 Ht 1.676 m (5' 6) Wt 65.7 kg (144 lb 12.8 oz) SpO2 97% BMI 23.37 kg/m Physical Exam Vitals and nursing note [...] sounds are normal. Palpations: Abdomen is soft. Comments: PEG tube in place, appears to be clean, no evidence of erythema or drainage Musculoskeletal: Cervical back: Normal range of motion and neck supple. Skin: General: Skin is warm and dry. Capillary Refill: Capillary refill takes less than 2 seconds. Comments: Patient with a skin tear of the left elbow, was dressed today advised about wound care Neurological: General: No focal deficit present. Mental Status: He is alert and oriented to person, place, and time. Mental status is at baseline. Cranial Nerves: No cranial nerve deficit. Psychiatric: Mood and Affect: Mood normal. Behavior: Behavior normal. Assessment/Plan Problem List Items Addressed This Visit ICD-10-CM BPH (benign prostatic hyperplasia) N40.0 Having some enuresis and urine incontinence at night, Uroxatrol was discontinued in the hospital, will try to restart this medication. Relevant Medications alfuzosin (Uroxatral) 10 mg 24 hr tablet 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 K21.9 Has PEG tube in place due to trouble swallowing after fall due to fractures of the face, did see GI in the hospital, had PEG tube placed, is following with speech therapy, would like to have his PEG tube removed, is able to tolerate diet and maintain weight, is using thickened liquids, advised the patient that I would like to have speech therapy evaluation and make sure that he is maintaining weight with oral feeds before we remove his PEG tube. Relevant Orders Follow Up In Primary Care - Established Hypertension - Primary I10 Blood pressure stable, amlodipine stopped in the hospital, no complaints. Check electrolyte and renal function Relevant Medications alfuzosin (Uroxatral) 10 mg 24 hr tablet Other Relevant Orders Follow Up In Primary Care - Established Comprehensive Metabolic Panel Fall, initial encounter W19.XXXA Post fall in April where the patient sustained fractures to the face, subdural and subarachnoid hemorrhage, pelvic fractures, prolonged hospitalization in [place] and transition to [facility] for intensive rehab for over 3 weeks. Patient recently discharged just this past week, has home health care established plan to recheck again in 2 weeks. No areas of open areas on skin. Fracture of orbital roof (Multi) S02.129A Post fall resulting in fractures of the orbit, denies any diplopia, posthospitalization for subdural hematoma and mild arachnoid hemorrhage. CT scan done last week at [facility] was negative for any new bleeding, bleeding has resolved and fractures appear to be healed. Fracture of sacrum (Multi) S32.10XA Getting along now using a wheeled walker, physical therapy working with the patient, denies any pain. Other Visit Diagnoses Codes Subdural hematoma (Multi) S06.5XAA Relevant Orders CBC and Auto Differential documented in this encounter [facility] Work Phone: 07-14-2025 Radiology Diagnostic study note [facility] Imaging Services [address] [place] [address] [id number] Brain/Head without Contrast MR#: [id number] Acct: [id number] Name: AFWN CAMERON Rep #: [id number] : 1935 M 89 From: Maria Luisa Mendieta MD PCP: Dr. Devan Barrera MD Status: RE G CLI Study:Brain/Head without Contrast Date of Exa m: 07/14/25 Exam# [id number] Ordering Dr: Jesus Alberto Wiggins MD PROCEDURE: BRAIN/HEAD WITHOUT CONTRAST 07/14/2025 REASON FOR EXAM: FALL WITH HEAD STRIKE TECHNIQUE: Procedure Code: CTBR Modality: CT Procedure: BRAIN/HEAD WITHOUT CONTRAST Coronal and Sagittal reconstruction series were provided. One or more dose reduction techniques were used (e.g., Automated exposure control, adjustment of the mA and/or kV according to patient size, use of iterative reconstruction technique. RADIATION DOSE SUMMARY: DLP: 830 mGycm COMPARISON: 05/21/2025 FINDINGS: There is no acute infarct, intracranial hemorrhage, or mass effect. There is no hydrocephalus or significant midline shift. There is moderate to severe chronic microvascular ischemic changes and moderate parenchymal volume loss. No acute, depressed calvarial fractures. No large scalp hematomas. The paranasal sinuses are clear. Bilateral lens surgeries. CT/Brain/Head without Contrast IMPRESSION: No acute intracranial process. Reading Location: [facility] CC: Dr. Devan Barrera MD; Dr. Jesus Alberto Wiggins MD ~ Game Designer: Signed [facility] 07-13-2025 Discharge summary Note Date/Time July 13, 2025 3:26pm [facility] Medical Records Department [address] [place] [id number] Discharge Summary 07/10/25 1503 MR#: [id number] Acct: [id number] Name: FAWN CAMERON Rep #:[id number] : 1935 89 From: Jesus Alberto Wiggins MD PCP: Dr. Devan Barrera MD Status:AD IN [facility] Providers Date of Admission: 05/20/25 Primary Care Physician: Dr. Devan Barrera MD Consultations 05/20/25 22:28 Consult: Onc/Wound/taxation economist Routine Comment: Reason for Consult:: open areas to b/l buttocks upon admit to TCU Comments:: currently ordered kim 05/25/25 06:00 Consult: Gastroenterology Routine Consulting Provider: [facility] Reason for Consult: PEG tube placement EMERGENT Consult: Yes Notified: Yes Date Notified: 05/25/25 Time Notified: 04:02 Method of Notification: Text Reason For Visit: SAH, FALL, MULTIPLE FX Diagnosis Discharge Diagnosis (1) Debility: Status: Acute Code(s): R53.81 - Other malaise (2) Orbital floor fracture: Status: Acute Code(s): S02.30XA - Fracture of orbital floor, unspecified side, initial encounter for closed fracture (3) Orbital roof fracture: Status: Acute Code(s): S02.129A - Fracture of orbital roof, unspecified side, initial encounter for closed fracture (4) SDH (subdural hematoma): Status: Acute Code(s): S06.5XAA - Traumatic subdural hemorrhage with loss of consciousness status unknown, initial encounter (5) SAH (subarachnoid hemorrhage): Status: Acute Code(s): I60.9 - Nontraumatic subarachnoid hemorrhage, unspecified (6) Bilateral pubic rami fractures: Status: Acute Code(s): S32.591A - Other specified fracture of right pubis, initial encounter for closedfracture; S32.592A - Other specified fracture of left pubis, initial encounter for closed fracture (7) Sacral fracture: Status: Acute Code(s): S32.10XA - Unspecified fracture of sacrum, initial encounter for closed fracture (8) GERD (gastroesophageal reflux disease): Status: Acute Code(s): K21.9 - Gastro-esophageal reflux disease without esophagitis (9) Essential (primary) hypertension: Status: Acute Code(s): I10 - Essential (primary) hypertension (10) Osteoarthritis: Status: Acute Code(s): M19.90 - Unspecified osteoarthritis, unspecified site (11) Carotid artery stenosis: Status: Acute Code(s): I65.29 - Occlusion and stenosis of unspecified carotid artery (12) Coronary artery disease: Status: Acute Code(s): I25.10 - Atherosclerotic heart disease of [place] coronary artery without angina pectoris (13) TIA (transient ischemic attack): Status: Acute Code(s): G45.9 - Transient cerebral ischemic attack, unspecified (14) BPH (benign prostatic hyperplasia): Status: Acute Code(s): N40.0 - Benign prostatic 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 lower urinary tract symptoms (15) Depression: Status: Acute Code(s): F32.A - Depression, unspecified (16) Hyperlipidemia: Status: Acute Code(s): E78.5 - Hyperlipidemia, unspecified (17) Dysphagia: Status: Acute Code(s): R13.10 - Dysphagia, unspecified Plan 89 year old male with below past medical history hospitalized for SDH, SAH, multiple traumatic fractures, complicated by dysphagia requiring dobbhoff TF, admitted to TCU with debility, here for rehabilitation, strengthening, prior to discharge home with . * Debility - PT/OT. * Dysphagia - s/p peg, clear liquid diet today. * Pain - Tylenol 650mg q6, Oxycodone 5mg q4 prn. * Bowel - Miralax 17gm daily, Senokot 1 tablet qhs. * Adult immunization - Administer pneumonia vaccine, covid vaccine, flu vaccine as appropriate. * DVT prophylaxis - Held. * Hypertension - Metoprolol 25mg bid, Lisinopril 40mg daily, Amlodipine 5mg daily. * Coronary artery disease - Metoprolol 25mg bid, Lisinopril 40mg daily, Aspirin 81mg daily. * Vitamin D deficiency - D 125mcg daily. * Vitamin B12 deficiency - B12 1000mcg daily. * Inflammatory polyarthropathy - MTX 20mg qweek, Folic acid 2mg daily. * Nutrition - Jevity 1.5 50ml/hour. * GERD - Lansoprazole 30mg daily. * Macular degeneration - Healthy Eyes 1 capsule daily. * Nausea - Zofran odt 4mg q8 prn. * Hyperlipidemia - Pravastatin 40mg qhs. * BPH - Doxazosin 4mg qhs. * Shortness of breath - Albuterol 2 puffs q4 prn. * Rash - HC topical bid prn. * Diarrhea - Loperamide 2mg q2h prn. * Skin irritation - Calmoseptine topical bid. * Dry Eyes - Artifiical tears 2 gtt q1h prn. The following psychotropic medication was present on admission: Elavil 10mg qhs. Psychotropic medication therapy is indicated for a diagnosis of: Insomnia. Based on my clinical evaluation, continuation of the medication is necessary at this time. Gradual dose reduction plan (select one): ____ GDR will be attempted. Will monitor patient symptoms and behaviors in response to GDR. __x__ GRD contraindicated. 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 The following psychotropic medication was present on admission: Lexapro 5mg daily. Psychotropic medication therapy is indicated for a diagnosis of: Depression. Based on my clinical evaluation, continuation of the medication is necessary at this time. Gradual dose reduction plan (select one): ____ GDR will be attempted. Will monitor patient symptoms and behaviors in response to GDR. __x__ GRD contraindicated. 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 Medications at Discharge Home Medications amitriptyline 10 mg tablet 10 mg feeding tube QHS Mood 05/20/25 aspirin 81 mg tablet 81 mg PO DAILY Heart 05/20/25 benazepril 40 mg tablet 40 mg feeding tube DAILY BP 05/20/25 cyanocobalamin (vitamin B-12) 1,000 mcg capsule 1,000 mcg PO DAILY Supplement 05/20/25 escitalopram oxalate 5 mg tablet 5 mg feeding tube DAILY Mood 05/20/25 omeprazole 40 mg capsule,delayed release 40 mg PO DAILY GERD 05/20/25 vitamins A,C,R-fbmm-wkwhlz 4,296 mcg-226 mg-90 mg capsule (Healthy Eyes SuperVision) 1 cap PO DAILY Eye Vitamin 05/20/25 menthol 0.44 %-zinc oxide 20.6 % topical ointment (CalaSoothe) 1 applic topical BID 05/25/25 acetaminophen 500 mg tablet 1,000 mg (2 x 500 mg) PO Q8 #0 tabs 07/10/25 cholecalciferol (vitamin D3) 125 mcg (5,000 unit) capsule 125 mcg PO DAILY #0 caps 07/10/25 cholestyramine (with sugar) 4 gram powder for susp in a packet 1 ea PO BIDAC 30 days #60 ea 07/10/25 doxazosin 4 mg tablet 4 mg PO QHS 30 days #30 tabs 07/10/25 folic acid 1 mg tablet 2 mg (2 x 1 mg) PO DAILY #0 tabs 07/10/25 methotrexate sodium 2.5 mg tablet 20 mg (8 x 2.5 mg) PO Q7D #0 tabs 07/10/25 metoprolol tartrate 25 mg tablet 25 mg PO BID #0 tabs 07/10/25 pantoprazole 40 mg tablet,delayed release 40 mg PO DAILY 30 days #30 tabs 07/10/25 pravastatin 40 mg tablet 40 mg PO QHS #0 tabs 07/10/25 Hospital Course Operations None Procedures EGD Summary of Care Provided Minutes Spent on Discharge: 35 Hospital Course: 89 year old male with below past medical history hospitalized for SDH, SAH, multiple traumatic fractures, complicated by dysphagia requiring dobbhoff TF, admitted to TCU with debility, here for rehabilitation, strengthening, prior to discharge home with . 05/26/2025 Dr. Ferrara EGD: Impression: - Normal esophagus. - Gastritis. - No gross lesions in the duodenal bulb. - An endoscopically removable PEG placement was successfully completed. - No specimens collected. 06/17/2025 Dr. Ferrara EGD: Impression: - Abnormal esophageal motility, established achalasia. Dilated. Injected with botulinum toxin. - Intact gastrostomy with a patent G-tube present. - No gross lesions in the entire examined duodenum. - No specimens collected. Discharge home with 07/16/2025, [facility] PT/OT/ST. Physical Exam Const alert General Appearance: cooperative HEENT normocephalic Eyes PERRL and EOMs intact bilaterally Neck supple, no JVD and no carotid bruits Resp normal respiratory effort, normal air movement and clear to auscultation bilaterally Cardio regular rate and regular rhythm GI normal to inspection, nondistended, normoactive bowel sounds, non-tender and non-distended GI Narrative: PEG present. Extremity normal capillary refill General Extremity: Negative for edema Skin no rashes or lesions noted General Skin Exam: no breakdown Psych affect normal Appearance: appropriate Medical Records Data Medical Nutrition Assessment Dietitian: Malnutrition Criteria Met Start: 05/21/25 14:30 Freq: Status: Active Protocol: Document 06/03/25 09:58 SLA (Rec: 06/03/25 09:59 SLA [id number]) Nutrition Malnutrition Evidence of Yes Malnutrition Exists Malnutrition (severe Acute Illness/Injury ): Evidenced By Suboptimal Energy Intake (Severe),Weight Loss (Severe) Intake Problem Increased Nutrient Needs (specify) Etiology protein related to skin status Signs/Symptoms as evidenced by PI neville buttock Status Active Problem Inadequate Oral Intake Etiology related to swallowing difficulty Signs/Symptoms as evidenced by NPO and need for enteral nutrition support Status Active Problem Clinical Problem Acute Disease or Injury Related Malnutrition Etiology severe protein-calorie malnutrition in the context of acute illness and injury related to swallowing difficulty and inadequate energy intake Signs/Symptoms as evidenced by ~10% unintentional weight loss x less than 1 month and oral intake meeting less than 50-75% estimated nutrition needs; need for enteral nutrition support Status Active Problem Recommendation Dietitian NPO; WARD SERVICE SUPERVISOR evaluation to assess ability to safely take Recommendations/ oral nutrition. Changes Will change bolus tf to 240 ml Jevity 1.5 w/ 180 ml water flush 5x/day (800, 1100, 1400, 1800, 2200) to provide 1800 randy / 76 gm pro/ 1812 ml free water/day. Rec Khalif bid w/ medpass if warranted to help w/ wound healing. Will monitor TF tolerance, weight and follow-up. Weight / BMI Weight Weight: 66.678 kg Body Mass Index (BMI) 23.7 ABG / Lab / Microbiology Data 07/08/25 09:29 07/08/25 09:29 Microbiology: Microbiology 06/18/25 11:20 Urine Catheter - Catheter Urine Culture - Final Culture exhibits no growth. 06/15/25 06:31 Nasal Secretion SARS-CoV-2 Antigen (Rapid) - Final 06/13/25 05:00 Nasal Secretion SARS-CoV-2 Antigen (Rapid) - Final 06/11/25 05:23 Nasal Secretion SARS-CoV-2 Antigen (Rapid) - Final 05/26/25 11:07 Mucosa - Nasopharyngeal Respiratory Panel (PCR) - Final 05/26/25 10:05 Nasal Secretion SARS-CoV-2 Antigen (Rapid) - Final 05/21/25 18:55 Urine Catheter - Catheter Urine Culture - Final Culture exhibits no growth. D/C Instructions Discharge Activity: Return to Normal Activity, May Shower and Use Walker Weight Bearing Status: Weight bearing as tolerated Call your doctor if you observe: Fever of 101 or Higher, Inability to urinate, Inability to have a bowel movement, Shortness of breath, Dizziness, Fainting spells, Swelling in the ankles, Chest pain and Uncontrolled pain DC O2, CPAP, BIPAP Needs Home O2 Discharge instructions: No Additional Instructions: Discharge home with 07/16/2025, [facility] PT/OT/ST. Please Follow Up With: Joon Khoury MD When: As scheduled. Meaningful Use Info Meaningful Use Meaningful Use Diagnoses (Choose all that apply): None applicable Discharge Plan Admission Admit Date/Time: 05/20/25 18:52 Primary Reason for Your Visit: Debility. Attending Provider: Jesus Alberto Wiggins Chi Primary Care Provider: Devan Barrera Instructions Additional Instructions / Restrictions: Discharge home with 07/16/2025, [facility] PT/OT/ST. Discharge Orders/Prescriptions Prescriptions: New acetaminophen 500 mg Tablet 1,000 mg PO Q8 Qty: 0 0RF cholecalciferol (vitamin D3) 125 mcg (5,000 unit) Capsule 125 mcg PO DAILY Qty: 0 0RF pravastatin 40 mg Tablet 40 mg PO QHS Qty: 0 0RF methotrexate sodium 2.5 mg Tablet 20 mg PO Q7D Qty: 0 0RF pantoprazole 40 mg Tablet,Delayed Release (Dr/Ec) 40 mg PO DAILY 30 Days Qty: 30 0RF doxazosin 4 mg Tablet 4 mg PO QHS 30 Days Qty: 30 0RF folic acid 1 mg Tablet 2 mg PO DAILY Qty: 0 0RF cholestyramine (with sugar) 4 gram Powder In Packet 1 ea PO BIDAC 30 Days Qty: 60 0RF metoprolol tartrate 25 mg Tablet 25 mg PO BID Qty: 0 0RF Continued amitriptyline 10 mg tablet 10 mg feeding tube QHS aspirin 81 mg tablet 81 mg PO DAILY Patient Comments: via g-tube benazepril 40 mg tablet 40 mg feeding tube DAILY cyanocobalamin (vitamin B-12) 1,000 mcg capsule 1,000 mcg PO DAILY escitalopram oxalate 5 mg tablet 5 mg feeding tube DAILY omeprazole 40 mg capsule,delayed release(DR/EC) 40 mg PO DAILY Healthy Eyes SuperVision 4,296 mcg-226 mg-90 mg capsule 1 cap PO DAILY Discontinued doxazosin [Cardura] 4 mg tablet 4 mg PO QHS Isosource 1.5 Randy 0.07 gram-1.5 kcal/mL liquid See Rx Instructions feeding tube .COMPLEX Patient Comments: 50 ml/h Rx Instructions: 50ml/h via feeding tube; Trexall 5 mg tablet 20 mg feeding tube QWEEK Patient Comments: Take one time per week on Sundays acetaminophen 325 mg capsule 650 mg feeding tube Q6H amlodipine 5 mg tablet 5 mg feeding tube DAILY bisacodyl 5 mg tablet 5 mg PO DAILY PRN (Reason: constipation) folic acid 1 mg tablet 2 mg feeding tube DAILY metoprolol tartrate 25 mg tablet 25 mg feeding tube BID ondansetron HCl 4 mg tablet 4 mg feeding tube Q8H PRN (Reason: nausea and vomiting) oxycodone 5 mg tablet 5 mg feeding tube Q4H PRN (Reason: pain (scale score 7-10)) pantoprazole 40 mg tablet,delayed release (DR/EC) 40 mg PO DAILY polyethylene glycol 3350 [Miralax] 17 gram/dose powder 17 g feeding tube DAILY pravastatin 40 mg tablet 40 mg feeding tube QHS sennosides [Senokot] 8.6 mg tablet 8.6 mg PO QHS cholecalciferol (vitamin D3) 125 mcg (5,000 unit) tablet 125 mcg feeding tube DAILY alfuzosin 10 mg tablet extended release 24 hr 10 mg PO DAILY Rx Instructions: administer after the same meal each day No Action menthol-zinc oxide [CalaSoothe] 0.44-20.6 % ointment 1 applic topical BID Referrals / Follow Up: Devan Barrera MD [Primary Care Provider, Family Practice] - Within 1 Week Referral Note: TCM. Disposition Disposition (needs filled in before D/C Order can be placed): Home Health Service 07/10/251514 <Electronically signed by Jesus Alberto Wiggins MD> Cosigner Signature (if applicable): CC: Dr. Devan Barrera MD; Dr. Jesus Alberto Wiggins MD~ Signed ADDENDUM by Dr. Jesus Alberto Wiggins MD on 07/13/25 at 1526 Addendum FWW: Patient is unsafe to use a cane and requires a walker for ambulation in the home and the community. 07/13/25 1526<Electronically signed by Jesus Alberto Wiggins MD> Cosigner Signature (if applicable): cc: Dr. Devan Barrera MD; Dr. Jesus Alberto Wiggins MD ~* Signed [facility] Work Phone: [phone]) 169-956609-22-2025 Discharge summary [facility] Medical Records Department [address] [place] [id number] Discharge Summary 07/10/25 1503 MR#: [id number] Acct: [id number] Name: FAWN CAMERON Rep #:[id number] : 1935 89 From: Jesus Alberto Wiggins MD PCP: Dr. Devan Barrera MD Status:AD M IN Location: [facility] TCU05-1 Providers Date of Admission: 05/20/25 Primary Care Physician: Dr. Devan Barrera MD Consultations 05/20/25 22:28 Consult: Onc/Wound/taxation economist Routine Comment: Reason for Consult:: open areas to b/l buttocks upon admit to TCU Comments:: currently ordered kim 05/25/25 06:00 Consult: Gastroenterology Routine Consulting Provider: [facility] Reason for Consult: PEG tube placement EMERGENT Consult: Yes MD Notified: Yes Date Notified: 05/25/25 Time Notified: 04:02 Method of Notification: Text Reason For Visit: SAH, FALL, MULTIPLE FX Diagnosis Discharge Diagnosis (1) Debility: Status: Acute Code(s): R53.81 - Other malaise (2) Orbital floor fracture: Status: Acute Code(s): S02.30XA - Fracture of orbital floor, unspecified side, initial encounter for closed fracture (3) Orbital roof fracture: Status: Acute Code(s): S02.129A - Fracture of orbital roof, unspecified side, initial encounter for closed fracture (4) SDH (subdural hematoma): Status: Acute Code(s): S06.5XAA - Traumatic subdural hemorrhage with loss of consciousness status unknown, initial encounter (5) SAH (subarachnoid hemorrhage): Status: Acute Code(s): I60.9 - Nontraumatic subarachnoid hemorrhage, unspecified (6) Bilateral pubic rami fractures: Status: Acute Code(s): S32.591A - Other specified fracture of right pubis, initial encounter for closedfracture; S32.592A - Other specified fracture of left pubis, initial encounter for closed fracture (7) Sacral fracture: Status: Acute Code(s): S32.10XA - Unspecified fracture of sacrum, initial encounter for closed fracture (8) GERD (gastroesophageal reflux disease): Status: Acute Code(s): K21.9 - Gastro-esophageal reflux disease without esophagitis (9) Essential (primary) hypertension: Status: Acute Code(s): I10 - Essential (primary) hypertension (10) Osteoarthritis: Status: Acute Code(s): M19.90 - Unspecified osteoarthritis, unspecified site (11) Carotid artery stenosis: Status: Acute Code(s): I65.29 - Occlusion and stenosis of unspecified carotid artery (12) Coronary artery disease: Status: Acute Code(s): I25.10 - Atherosclerotic heart disease of [place] coronary artery without angina pectoris (13) TIA (transient ischemic attack): Status: Acute Code(s): G45.9 - Transient cerebral ischemic attack, unspecified (14) BPH (benign prostatic hyperplasia): Status: Acute Code(s): N40.0 - Benign prostatic 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 lower urinary tract symptoms (15) Depression: Status: Acute Code(s): F32.A - Depression, unspecified (16) Hyperlipidemia: Status: Acute Code(s): E78.5 - Hyperlipidemia, unspecified (17) Dysphagia: Status: Acute Code(s): R13.10 - Dysphagia, unspecified Plan 89 year old male with below past medical history hospitalized for SDH, SAH, multiple traumatic fractures, complicated by dysphagia requiring dobbhoff TF, admitted to TCU with debility, here for rehabilitation, strengthening, prior to discharge home with . * Debility - PT/OT. * Dysphagia - s/p peg, clear liquid diet today. * Pain - Tylenol 650mg q6, Oxycodone 5mg q4 prn. * Bowel - Miralax 17gm daily, Senokot 1 tablet qhs. * Adult immunization - Administer pneumonia vaccine, covid vaccine, flu vaccine as appropriate. * DVT prophylaxis - Held. * Hypertension - Metoprolol 25mg bid, Lisinopril 40mg daily, Amlodipine 5mg daily. * Coronary artery disease - Metoprolol 25mg bid, Lisinopril 40mg daily, Aspirin 81mg daily. * Vitamin D deficiency - D 125mcg daily. * Vitamin B12 deficiency - B12 1000mcg daily. * Inflammatory polyarthropathy - MTX 20mg qweek, Folic acid 2mg daily. * Nutrition - Jevity 1.5 50ml/hour. * GERD - Lansoprazole 30mg daily. * Macular degeneration - Healthy Eyes 1 capsule daily. * Nausea - Zofran odt 4mg q8 prn. * Hyperlipidemia - Pravastatin 40mg qhs. * BPH - Doxazosin 4mg qhs. * Shortness of breath - Albuterol 2 puffs q4 prn. * Rash - HC topical bid prn. * Diarrhea - Loperamide 2mg q2h prn. * Skin irritation - Calmoseptine topical bid. * Dry Eyes - Artifiical tears 2 gtt q1h prn. The following psychotropic medication was present on admission: Elavil 10mg qhs. Psychotropic medication therapy is indicated for a diagnosis of: Insomnia. Based on my clinical evaluation, continuation of the medication is necessary at this time. Gradual dose reduction plan (select one): ____ GDR will be attempted. Will monitor patient symptoms and behaviors in response to GDR. __x__ GRD contraindicated. 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 The following psychotropic medication was present on admission: Lexapro 5mg daily. Psychotropic medication therapy is indicated for a diagnosis of: Depression. Based on my clinical evaluation, continuation of the medication is necessary at this time. Gradual dose reduction plan (select one): ____ GDR will be attempted. Will monitor patient symptoms and behaviors in response to GDR. __x__ GRD contraindicated. 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 Medications at Discharge Home Medications amitriptyline 10 mg tablet 10 mg feeding tube QHS Mood 05/20/25 aspirin 81 mg tablet 81 mg PO DAILY Heart 05/20/25 benazepril 40 mg tablet 40 mg feeding tube DAILY BP 05/20/25 cyanocobalamin (vitamin B-12) 1,000 mcg capsule 1,000 mcg PO DAILY Supplement 05/20/25 escitalopram oxalate 5 mg tablet 5 mg feeding tube DAILY Mood 05/20/25 omeprazole 40 mg capsule,delayed release 40 mg PO DAILY GERD 05/20/25 vitamins A,C,P-ussp-eyzzmj 4,296 mcg-226 mg-90 mg capsule (Healthy Eyes SuperVision) 1 cap PO DAILYEye Vitamin 05/20/25 menthol 0.44 %-zinc oxide 20.6 % topical ointment (CalaSoothe) 1 applic topical BID 05/25/25 acetaminophen 500 mg tablet 1,000 mg (2 x 500 mg) PO Q8 #0 tabs 07/10/25 cholecalciferol (vitamin D3) 125 mcg (5,000 unit) capsule 125 mcg PO DAILY #0 caps 07/10/25 cholestyramine (with sugar) 4 gram powder for susp in a packet 1 ea PO BIDAC 30 days #60 ea 07/10/25 doxazosin 4 mg tablet 4 mg PO QHS 30 days #30 tabs 07/10/25 folic acid 1 mg tablet 2 mg (2 x 1 mg) PO DAILY #0 tabs 07/10/25 methotrexate sodium 2.5 mg tablet 20 mg (8 x 2.5 mg) PO Q7D #0 tabs 07/10/25 metoprolol tartrate 25 mg tablet 25 mg PO BID #0 tabs 07/10/25 pantoprazole 40 mg tablet,delayed release 40 mg PO DAILY 30 days #30 tabs 07/10/25 pravastatin 40 mg tablet 40 mg PO QHS #0 tabs 07/10/25 Hospital Course Operations None Procedures EGD Summary of Care Provided Minutes Spent on Discharge: 35 Hospital Course: 89 year old male with below past medical history hospitalized for SDH, SAH, multiple traumatic fractures, complicated by dysphagia requiring dobbhoff TF, admitted to TCU with debility, here for rehabilitation, strengthening, prior to discharge home with . 05/26/2025 Dr. Ferrara EGD: Impression: - Normal esophagus. - Gastritis. - No gross lesions in the duodenal bulb. - An endoscopically removable PEG placement was successfully completed. - No specimens collected. 06/17/2025 Dr. Ferrara EGD: Impression: - Abnormal esophageal motility, established achalasia. Dilated. Injected with botulinum toxin. - Intact gastrostomy with a patent G-tube present. - No gross lesions in the entire examined duodenum. - No specimens collected. Discharge home with 07/16/2025, [facility] PT/OT/ST. Physical Exam Const alert General Appearance: cooperative HEENT normocephalic Eyes PERRL and EOMs intact bilaterally Neck supple, no JVD and no carotid bruits Resp normal respiratory effort, normal air movement and clear to auscultation bilaterally Cardio regular rate and regular rhythm GI normal to inspection, nondistended, normoactive bowel sounds, non-tender and non-distended GI Narrative: PEG present. Extremity normal capillary refill General Extremity: Negative for edema Skin no rashes or lesions noted General Skin Exam: no breakdown Psych affect normal Appearance: appropriate Medical Records Data Medical Nutrition Assessment Dietitian: Malnutrition Criteria Met Start: 05/21/25 14:30 Freq: Status: Active Protocol: Document 06/03/25 09:58 SLA (Rec: 06/03/25 09:59 SLA [id number]) Nutrition Malnutrition Evidence of Yes Malnutrition Exists Malnutrition (severe Acute Illness/Injury ): Evidenced By Suboptimal Energy Intake (Severe),Weight Loss (Severe) Intake Problem Increased Nutrient Needs (specify) Etiology protein related to skin status Signs/Symptoms as evidenced by PI neville buttock Status Active Problem Inadequate Oral Intake Etiology related to swallowing difficulty Signs/Symptoms as evidenced by NPO and need for enteral nutrition support Status Active Problem Clinical Problem Acute Disease or Injury Related Malnutrition Etiology severe protein-calorie malnutrition in the context of acute illness and injury related to swallowing difficulty and inadequate energy intake Signs/Symptoms as evidenced by ~10% unintentional weight loss x less than 1 month and oral intake meeting less than 50-75% estimated nutrition needs; need for enteral nutrition support Status Active Problem Recommendation Dietitian NPO; WARD SERVICE SUPERVISOR evaluation to assess ability to safely take Recommendations/ oral nutrition. Changes Will change bolus tf to 240 ml Jevity 1.5 w/ 180 ml water flush 5x/day (800, 1100, 1400, 1800, 2200) to provide 1800 randy / 76 gm pro/ 1812 ml free water/day. Rec Khalif bid w/ medpass if warranted to help w/ wound healing. Will monitor TF tolerance, weight and follow-up. Weight / BMI Weight Weight: 66.678 kg Body Mass Index (BMI) 23.7 ABG / Lab / Microbiology Data 07/08/25 09:29 07/08/25 09:29 Microbiology: Microbiology 06/18/25 11:20 Urine Catheter - Catheter Urine Culture - Final Culture exhibits no growth. 06/15/25 06:31 Nasal Secretion SARS-CoV-2 Antigen (Rapid) - Final 06/13/25 05:00 Nasal Secretion SARS-CoV-2 Antigen (Rapid) - Final 06/11/25 05:23 Nasal Secretion SARS-CoV-2 Antigen (Rapid) - Final 05/26/25 11:07 Mucosa - Nasopharyngeal Respiratory Panel (PCR) - Final 05/26/25 10:05 Nasal Secretion SARS-CoV-2 Antigen (Rapid) - Final 05/21/25 18:55 Urine Catheter - Catheter Urine Culture - Final Culture exhibits no growth. D/C Instructions Discharge Activity: Return to Normal Activity, May Shower and Use Walker Weight Bearing Status: Weight bearing as tolerated Call your doctor if you observe: Fever of 101 or Higher, Inability to urinate, Inability to have a bowel movement, Shortness of breath, Dizziness, Fainting spells, Swelling in the ankles, Chest pain and Uncontrolled pain DC O2, CPAP, BIPAP Needs Home O2 Discharge instructions: No Additional Instructions: Discharge home with 07/16/2025, [facility] PT/OT/ST. Please Follow Up With: Joon Khoury MD When: As scheduled. Meaningful Use Info Meaningful Use Meaningful Use Diagnoses (Choose all that apply): None applicable Discharge Plan Admission Admit Date/Time: 05/20/25 18:52 Primary Reason for Your Visit: Debility. Attending Provider: Jesus Alberto Wiggins Chi Primary Care Provider: Devan Barrera Instructions Additional Instructions / Restrictions: Discharge home with 07/16/2025, [facility] PT/OT/ST. Discharge Orders/Prescriptions Prescriptions: New acetaminophen 500 mg Tablet 1,000 mg PO Q8 Qty: 0 0RF cholecalciferol (vitamin D3) 125 mcg (5,000 unit) Capsule 125 mcg PO DAILY Qty: 0 0RF pravastatin 40 mg Tablet 40 mg PO QHS Qty: 0 0RF methotrexate sodium 2.5 mg Tablet 20 mg PO Q7D Qty: 0 0RF pantoprazole 40 mg Tablet,Delayed Release (Dr/Ec) 40 mg PO DAILY 30 Days Qty: 30 0RF doxazosin 4 mg Tablet 4 mg PO QHS 30 Days Qty: 30 0RF folic acid 1 mg Tablet 2 mg PO DAILY Qty: 0 0RF cholestyramine (with sugar) 4 gram Powder In Packet 1 ea PO BIDAC 30 Days Qty: 60 0RF metoprolol tartrate 25 mg Tablet 25 mg PO BID Qty: 0 0RF Continued amitriptyline 10 mg tablet 10 mg feeding tube QHS aspirin 81 mg tablet 81 mg PO DAILY Patient Comments: via g-tube benazepril 40 mg tablet 40 mg feeding tube DAILY cyanocobalamin (vitamin B-12) 1,000 mcg capsule 1,000 mcg PO DAILY escitalopram oxalate 5 mg tablet 5 mg feeding tube DAILY omeprazole 40 mg capsule,delayed release(DR/EC) 40 mg PO DAILY Healthy Eyes SuperVision 4,296 mcg-226 mg-90 mg capsule 1 cap PO DAILY Discontinued doxazosin [Cardura] 4 mg tablet 4 mg PO QHS Isosource 1.5 Randy 0.07 gram-1.5 kcal/mL liquid See Rx Instructions feeding tube .COMPLEX Patient Comments: 50 ml/h Rx Instructions: 50ml/h via feeding tube; Trexall 5 mg tablet 20 mg feeding tube QWEEK Patient Comments: Take one time per week on Sundays acetaminophen 325 mg capsule 650 mg feeding tube Q6H amlodipine 5 mg tablet 5 mg feeding tube DAILY bisacodyl 5 mg tablet 5 mg PO DAILY PRN (Reason: constipation) folic acid 1 mg tablet 2 mg feeding tube DAILY metoprolol tartrate 25 mg tablet 25 mg feeding tube BID ondansetron HCl 4 mg tablet 4 mg feeding tube Q8H PRN (Reason: nausea and vomiting) oxycodone 5 mg tablet 5 mg feeding tube Q4H PRN (Reason: pain (scale score 7-10)) pantoprazole 40 mg tablet,delayed release (DR/EC) 40 mg PO DAILY polyethylene glycol 3350 [Miralax] 17 gram/dose powder 17 g feeding tube DAILY pravastatin 40 mg tablet 40 mg feeding tube QHS sennosides [Senokot] 8.6 mg tablet 8.6 mg PO QHS cholecalciferol (vitamin D3) 125 mcg (5,000 unit) tablet 125 mcg feeding tube DAILY alfuzosin 10 mg tablet extended release 24 hr 10 mg PO DAILY Rx Instructions: administer after the same meal each day No Action menthol-zinc oxide [CalaSoothe] 0.44-20.6 % ointment 1 applic topical BID Referrals / Follow Up: Devan Barrera MD [Primary Care Provider, Family Practice] - Within 1 Week Referral Note: TCM. Disposition Disposition (needs filled in before D/C Order can be placed): Home Health Service 07/10/251514 Cosigner Signature (if applicable): CC: Dr. Devan Barrera MD; Dr. Jesus Alberto Wiggins MD~ Signed ADDENDUM by Dr. Jesus Alberto Wiggins MD on 07/13/25 at 1526 Addendum FWW: Patient is unsafe to use a cane and requires a walker for ambulation in the home and the community. 07/13/25 152 Cosigner Signature (if applicable): cc: Dr. Devan Barrera MD; Dr. Jesus Alberto Wiggins MD ~* Signed [facility]09-19-2025 [facility] Medical Records Department [address] [place] [address] Discharge Summary 07/10/25 1508 MR#: [id number] Acct: [id number] Name: FAWN CAMERON Rep #: [id number] : 1935 89 From: Jesus Alberto Wiggins MD PCP: Dr. Devan Barrera MD Status:ADM IN Location: [facility] Providers Date of Admission: 05/20/25 Primary Care Physician: Dr. Devan Barrera MD Consultations 05/20/25 22:28 Consult: Onc/Wound/taxation economist Routine Comment: Reason for Consult:: open areas to b/l buttocks upon admit to TCU Comments:: currently ordered kim 05/25/25 06:00 Consult: Gastroenterology Routine Consulting Provider: [facility] Reason for Consult: PEG tube placement EMERGENT Consult: Yes MD Notified: Yes Date Notified: 05/25/25 Time Notified: 04:02 Method of Notification: Text Reason For Visit: SAH, FALL, MULTIPLE FX Diagnosis Discharge Diagnosis (1) Debility: Status: Acute Code(s): R53.81 - Other malaise (2) Orbital floor fracture: Status: Acute Code(s): S02.30XA - Fracture of orbital floor, unspecified side, initial encounter for closed fracture (3) Orbital roof fracture: Status: Acute Code(s): S02.129A - Fracture of orbital roof, unspecified side, initial encounter for closed fracture (4) SDH (subdural hematoma): Status: Acute Code(s): S06.5XAA - Traumatic subdural hemorrhage with loss of consciousness status unknown, initial encounter (5) SAH (subarachnoid hemorrhage): Status: Acute Code(s): I60.9 - Nontraumatic subarachnoid hemorrhage, unspecified (6) Bilateral pubic rami fractures: Status: Acute Code(s): S32.591A - Other specified fracture of right pubis, initial encounter for closed fracture; S32.592A - Other specified fracture of left pubis, initial encounter for closed fracture (7) Sacral fracture: Status: Acute Code(s): S32.10XA - Unspecified fracture of sacrum, initial encounter for closed fracture (8) GERD (gastroesophageal reflux disease): Status: Acute Code(s): K21.9 - Gastro-esophageal reflux disease without esophagitis (9) Essential (primary) hypertension: Status: Acute Code(s): I10 - Essential (primary) hypertension (10) Osteoarthritis: Status: Acute Code(s): M19.90 - Unspecified osteoarthritis, unspecified site (11) Carotid artery stenosis: Status: Acute Code(s): I65.29 - Occlusion and stenosis of unspecified carotid artery (12) Coronary artery disease: Status: Acute Code(s): I25.10 - Atherosclerotic heart disease of [place] coronary artery without angina pectoris (13) TIA (transient ischemic attack): Status: Acute Code(s): G45.9 - Transient cerebral ischemic attack, unspecified (14) BPH (benign prostatic hyperplasia): Status: Acute Code(s): N40.0 - Benign prostatic 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 lower urinary tract symptoms (15) Depression: Status: Acute Code(s): F32.A - Depression, unspecified (16) Hyperlipidemia: Status: Acute Code(s): E78.5 - Hyperlipidemia, unspecified (17) Dysphagia: Status: Acute Code(s): R13.10 - Dysphagia, unspecified Plan 89 year old male with below past medical history hospitalized for SDH, SAH, multiple traumatic fractures, complicated by dysphagia requiring dobbhoff TF, admitted to TCU with debility, here for rehabilitation, strengthening, prior to discharge home with . * Debility - PT/OT. * Dysphagia - s/p peg, clear liquid diet today. * Pain - Tylenol 650mg q6, Oxycodone 5mg q4 prn. * Bowel - Miralax 17gm daily, Senokot 1 tablet qhs. * Adult immunization - Administer pneumonia vaccine, covid vaccine, flu vaccine as appropriate. * DVT prophylaxis - Held. * Hypertension - Metoprolol 25mg bid, Lisinopril 40mg daily, Amlodipine 5mg daily. * Coronary artery disease - Metoprolol 25mg bid, Lisinopril 40mg daily, Aspirin 81mg daily. * Vitamin D deficiency - D 125mcg daily. * Vitamin B12 deficiency - B12 1000mcg daily. * Inflammatory polyarthropathy - MTX 20mg qweek, Folic acid 2mg daily. * Nutrition - Jevity 1.5 50ml/hour. * GERD - Lansoprazole 30mg daily. * Macular degeneration - Healthy Eyes 1 capsule daily. * Nausea - Zofran odt 4mg q8 prn. * Hyperlipidemia - Pravastatin 40mg qhs. * BPH - Doxazosin 4mg qhs. * Shortness of breath - Albuterol 2 puffs q4 prn. * Rash - HC topical bid prn. * Diarrhea - Loperamide 2mg q2h prn. * Skin irritation - Calmoseptine topical bid. * Dry Eyes - Artifiical tears 2 gtt q1h prn. The following psychotropic medication was present on admission: Elavil 10mg qhs. Psychotropic medication therapy is indicated for a diagnosis of: Insomnia. Based on my clinical evaluation, continuation of the medication is necessary at this time. Gradual dose reduction plan (select one): ____ GDR will be attempted. Will monitor patient symptoms and behaviors in response to GDR. __x__ GRD contraindicated. Reason contrain (more content not included)...[facility]09-17-2025 Procedure note [facility] Speech Pathology [address] [place] [address] Modified Barium Swallow Study MR#: [id number] Acct: [id number] Name: FAWN CAMERON Rep #:[id number] : 1935 89 From: Lincoln Coats, [facility]-WARD SERVICE SUPERVISOR Modified Barium Swallow Patient Information Study Date: 07/07/25 Study Time: 14:00 Direct Billable Minutes: 84 Total Minutes procedure & reportin Diagnosis: Dysphagia R13.10 Referring Physician: Jesus Alberto Wiggins Chi Reason for Referral: Re-assess swallow function and risk for aspiration to determine if patient is safe for further dietadvancement. 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 Injuries:?1. Right orbital floor. 2. Buckle fracture right anterior cranial floor/orbital roof. 3. Small right subdural hematoma. 4. Trace right frontal SAH.?5. Bilateral pubic rami fracture with extension to acetabular wall.?6. Nondisplaced Sacral ala fracture right. Incidental findings:?1. 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 Left common iliac aneurysm..?3. Right common iliac aneurysm. During his hospitalization 05/10/25-05/20/25 he was also diagnosed with severe oropharyngeal dysphagia with recommendation for NPO. A Dobhoff was placed05/14/25 after MBSS revealed severe oropharyngeal dysphagia w/ silent aspiration of all liquid consistencies. Other noted concerns from MBSS were severe cervicallordosis, delayed initiation of the pharyngeal swallow, incomplete airway closure, reduced pharyngeal constriction, reduced UES opening/duration, and ineffective cued coughs. Admitted to [facility]CU 05/20/[address], OT, PT prior to discharge home w/ . ?ST evaluation 05/21/2025 recommended NPO. 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 The patient participated in 10 dysphagia therapy sessions w/ oropharyngeal strengthening in junction w/ NMES, as well as thin water trials w/WARD SERVICE SUPERVISOR and vocal adduction exercises. Repeat MBSS 06/15/2025 revealed moderate-severe oropharyngeal dysphagia and esophageal dysphagia w/ recommendations for NPO, Ok for trials of puree and mildly thick liquids w/ WARD SERVICE SUPERVISOR only. Recommend tsp bites of puree consistencies w/ use of effortful, multiple swallows. Recommend tsp sips of mildly thick liquids w/ use of effortful, multiple swallow and cough/throat clear and re-swallow w/ each sip. Pt was recommended for GI consult, as well.Per treating WARD SERVICE SUPERVISOR, the patient has tolerated sips of mildly thick liquids via tsp and cup w/o need for cough and re-swallow; however, pudding trials have been difficult for the patient. He underwent EGD 06/17/2025, which revealed abnormal esophageal motility, established achalasia. Dilated. Injectedwith botulinum toxin. WARD SERVICE SUPERVISOR clarified w/ Dr. Ferrara re: site of botox injection and dilation via Backline. He reported pt had dilation of UES and LES, as well as botox injection at the UES. MBSS repeated 06/23/2025, which recommended advancement to mildly thickened liquids. With further dysphagia treatment, he advanced to minced and moist textures / mildly thick liquid w/ use of 1 bite at a time, double hard swallow and liquid wash after each bite. PMH: Dysphagia, HLD, Depression, BPH, TIA, CAD, Carotid artery stenosis, Osteoarthritis, HTN, GERD,Sacral fracture, Bilateral pubic rami fractures, SAH,SDH, Orbital roof fracture, Orbital floor fracture, Debility. Current Diet Ordered: Minced and moist textures / Mildly thick liquids Dentition: Natural Teeth and Missing Teeth Mental Status: Impaired (Per MoCA on initial evaluation. Did not impact exam.) Respiratory Status: Oxygenating on Room Air Penetration-Aspiration Scale Penetration-Aspiration Scale: OBJECTIVE ASSESSMENT OF SWALLOW FUNCTION (QUANTITATIVE ? PER TRIAL): PENETRATION / ASPIRATION SCALE (DE JESUS): 1 = does not enter airway 2 = enters airway/above vocal folds/ejected 3 = enters airway/above vocal folds/not ejected 4 = enters airway/contacts vocal folds/ejected 5 = enters airway/contacts vocal folds/not ejected 6 = enters airway/below vocal folds/ejected 7 = enters airway/below vocal folds/not ejected despite effort 8 = enters airway/below vocal folds/no effort VIDEOFLOROSCOPIC SCALE SCORE (DE JESUS): Grade I = aspiration of material that has penetrated into the laryngeal vestibule, intact cough reflex Grade II = aspiration < 10 % of the bolus, intact cough reflex Grade III = aspiration of < 10 % of the bolus, reduced cough reflex or aspiration of > 10 % of the bolus, intact cough reflex Grade IV = aspiration of > 10 % of the bolus, reduced cough reflex Penetration-Aspiration Scale Score [place] Thick Liquid via teaspoon: Result: 2= enter airway/above vocal folds/ejected [place] Thick Liquid via small single sip: cup: Result: 2= enter airway/above vocal folds/ejected Thin Liquid via teaspoon: Result: 2= enter airway/above vocal folds/ejected Thin Liquid via teaspoon Trial 2: Result: 7= enters airways/below vocal folds/not ejected despite effort Comment: Delayed reflexive cough = somewhat effective. Thin Liquid via teaspoon Effortful swallow: Result: 8= enters airway/below vocal folds/no effort Thin Liquid via teaspoon Chin tuck: Result: 8= enters airway/below vocal folds/no effort Thin Liquid via teaspoon Supraglottic swallow: Result: 5= enters airways/contacts vocal folds/not ejected Comment: Trace liquid resides remained in the laryngeal vestibule after this swallow. Pudding via 1/2 teaspoon: Result: 2= enter airway/above vocal folds/ejected Pudding via teaspoon: Result: 2= enter airway/above vocal folds/ejected [place] Thick Liquid via small single sip: cup Trial 2: Result: 2= enter airway/above vocal folds/ejected 1/4 Cookie: Result: 2= enter airway/above vocal folds/ejected Comment: Silent post prandial aspiration, likely of trace residues that remained in the laryngeal vestibule from thin liquid trials. [place] Thick Liquid via small single sip: cup Trial 3: Result: 2= enter airway/above vocal folds/ejected Oral Phase Labial Seal: No Labial Escape Tongue Control During Bolus Hold: Posterior escape of greater than half of bolus Bolus Preparation/Mastication: Slow prolonged chewing/mashing with complete recollection Bolus Transport/Lingual Motion: Repetitive/disorganized tongue motion Oral Residue: Residue collection on oral structures Pharyngeal Phase Initiation of Pharyngeal Swallow: Bolus head in pyriforms Soft Palate Elevation: Escape to nasopharynx Laryngeal Elevation: Partial superior movement thyroid cart/partial apprx aryt- epig petiole Anterior Hyoid Excursion: Partial anterior movement Epiglottic Movement: Partial inversion Laryngeal Vestibule Closure at Height of Swallow: Incomplete; narrow column of air/contrast in laryngeal vestibule Pharyngeal Stripping Wave: Present - diminished Pharyngoesophageal Segment Opening: Minimal distension and minimal duration; marked obstruction of flow (~50% of tsp of pudding and 1/4 cookie cleared through the UES on the first swallow) Tongue Base Retraction: Wide column of contrast between tongue base & post. pharyngeal wall Pharyngeal Residue: Majority of contrast within or on pharyngeal structures (~50% of tsp of puddingand 1/4 cookie remained in the pharynx after the first swallow) Diagnosis/Impression Diagnosis: Moderate oropharyngeal dysphagia R13.12 MBS Impressions: The oral phase is primarily marked by... -Decreased bolus control w/ posterior loss of >1/2 of mildly/nectar thick liquids by tsp to the pyriform sinuses prior to swallow onset. -Continued lingual pumping w/ A-P transport. -Slowed, but complete mastication of cookie. Did not have fluoroscopy on for duration of chewing tominimize time w/ fluoroscopy as this is the patient's third recent MBSS. The pharyngeal phase is primarily marked by... -Continued decreased pharyngeal motility due to decreased TB retraction and pharyngeal stripping wave. ~50% of tsp of pudding and 1/4 of cookie remained in the pharynx after the first swallows. Multiple swallows and liquid washes were mostly effective in clearing pharyngeal residues of pudding and cookie. -Continued decreased airway closure secondary to decreased laryngeal elevation and anterior hyoid excursion w/ partial epiglottic inversion. -Improved PAS scoring w/ mildly/nectar thick liquids as compared to previous MBSS. SILENT aspiration of thin liquids by tsp w/ effortful swallow and thin liquids by tsp w/ chin tuck. Overt aspirationof thin by tsp 1X w/ weak, delayedreflexive cough. Trace post prandial aspiration observed during the MBSS 1X, likely on residues of thin liquid trials. Recommendations Diet: Minced and Moist Textures and Mildly Thick Liquids Compensatory Strategies: Small Bites, Small Sips, Slow Rate, Multiple Swallows, Alternate bites/solids and sips/liquids (Take a sip after each bite), Sitting upright and Remain sitting upright for 30minutes after PO intake Supervision: Distant Supervision Recommend Repeat Modified Barium Swallow: Yes (After 4-8 weeks of continued oropharyngeal strengthening. Could consider assessment via FEES due to pt already participating in 3 MBSS during this hospital stay. Will recommend instrumental assessment prior to advancement of liquid due to silent natureof aspiration.) Need for Skilled Speech Therapy Services: Yes Comment: Continue per U dysphagia POC. Will recommend skilled meal analysis of soft andbite size textures w/ treating WARD SERVICE SUPERVISOR to consider further diet advancement of solids. Education Completed: 1. Described result of evaluation. and 2. Pt understands evaluation & agrees with goals and treatment plan. Status Active ST Patient: Active Contact Information [facility] Speech Therapy:: Lincoln Jensen M.A. CCC-WARD SERVICE SUPERVISOR Speech-Language Pathologist [facility] [address] [place] [address] [email or web address] [phone] 07/08/25 0901 [place] CCC-WARD SERVICE SUPERVISOR> Date/Time Lincoln Jensen M.A., CCC-WARD SERVICE SUPERVISOR Co-Signature Required for all Medicare patients Date/Time Co-Signature CC: ~ [facility]09-10-2025 Progress note Author Jesus Alberto Feliciano [facility] Note Date/Time July 01, 2025 5:20pm [facility] Medical Records Department [address] [place] [address] Progress Note - [facility] 06/23/25 1658 MR#: [id number] Acct: [id number] Name: FAWN CAMERON Rep #:[id number] : 1935 89 From: Jesus Alberto Wiggins MD PCP: Dr. Devan Barrera MD Status:AD M IN Location: [place] [address] Subjective Subjective Resident seen, examined. He is dressed, sitting in chair, no distress. Today, MBS cleared him for clear liquid diet. He has not eaten for 42 days. He is happy, and he is progressing in therapy. I am hopeful he will be able to go back to regular diet, and go home. Objective Data Objective Data Vital Signs: Vital Signs Temp Pulse Resp BP Pulse Ox O2 Del Method O2 Flow Rate 97.6 F L 89 16 106/60 94 Room Air 98 06/23/25 10:51 06/23/25 14:00 06/23/25 14:00 06/23/25 10:51 06/23/25 14:00 06/23/25 14:00 06/01/25 13:16 Oxygen Flow Rate (L/min) 98 Oxygen Delivery Method Room Air Weight: 66.633 kg Body Mass Index (BMI) 23.6 Intake & Output: Intake and Output for Last 24 Hours 06/21/25 06/22/25 06/23/25 23:59 23:59 23:59 Intake Total 750 / 750 420 / 420 Output Total 300 / 300 650 / 650 550 / 550 Balance 450 / 450 -230 / -230 -550 / -550 Medical Nutrition Assessment Dietitian: Malnutrition Criteria Met Start: 05/21/25 14:30 Freq: Status: Active Protocol: Document 06/03/25 09:58 SLA (Rec: 06/03/25 09:59 SLA [id number]) Nutrition Malnutrition Evidence of Yes Malnutrition Exists Malnutrition (severe Acute Illness/Injury ): Evidenced By Suboptimal Energy Intake (Severe),Weight Loss (Severe) Intake Problem Increased Nutrient Needs (specify) Etiology protein related to skin status Signs/Symptoms as evidenced by PI neville buttock Status Active Problem Inadequate Oral Intake Etiology related to swallowing difficulty Signs/Symptoms as evidenced by NPO and need for enteral nutrition support Status Active Problem Clinical Problem Acute Disease or Injury Related Malnutrition Etiology severe protein-calorie malnutrition in the context of acute illness and injury related to swallowing difficulty and inadequate energy intake Signs/Symptoms as evidenced by ~10% unintentional weight loss x less than 1 month and oral intake meeting less than 50-75% estimated nutrition needs; need for enteral nutrition support Status Active Problem Recommendation Dietitian NPO; WARD SERVICE SUPERVISOR evaluation to assess ability to safely take Recommendations/ oral nutrition. Changes Will change bolus tf to 240 ml Jevity 1.5 w/ 180 ml water flush 5x/day (800, 1100, 1400, 1800, 2200) to provide 1800 randy / 76 gm pro/ 1812 ml free water/day. Rec Khalif bid w/ medpass if warranted to help w/ wound healing. Will monitor TF tolerance, weight and follow-up. Lab / Micro Data 06/18/25 05:16 06/18/25 05:16 Micro: Microbiology 06/18/25 11:20 Urine Catheter - Catheter Urine Culture - Final Culture exhibits no growth. 06/15/25 06:31 Nasal Secretion SARS-CoV-2 Antigen (Rapid) - Final 06/13/25 05:00 Nasal Secretion SARS-CoV-2 Antigen (Rapid) - Final 06/11/25 05:23 Nasal Secretion SARS-CoV-2 Antigen (Rapid) - Final 05/26/25 11:07 Mucosa - Nasopharyngeal Respiratory Panel (PCR) - Final 05/26/25 10:05 Nasal Secretion SARS-CoV-2 Antigen (Rapid) - Final 05/21/25 18:55 Urine Catheter - Catheter Urine Culture - Final Culture exhibits no growth. Physical Exam Const alert General Appearance: cooperative HEENT normocephalic Eyes PERRL and EOMs intact bilaterally Neck supple, no JVD and no carotid bruits Resp normal respiratory effort, normal air movement and clear to auscultation bilaterally Cardio regular rate and regular rhythm GI normal to inspection, nondistended, normoactive bowel sounds, non-tender and non-distended GI Narrative: s/p peg. Extremity normal capillary refill General Extremity: Negative for edema Skin no rashes or lesions noted General Skin Exam: no breakdown Psych affect normal Appearance: appropriate Assessment & Plan Assessment/Plan (1) Debility: (2) Orbital floor fracture: (3) Orbital roof fracture: (4) SDH (subdural hematoma): (5) SAH (subarachnoid hemorrhage): (6) Bilateral pubic rami fractures: (7) Sacral fracture: (8) GERD (gastroesophageal reflux disease): (9) Essential (primary) hypertension: (10) Osteoarthritis: (11) Carotid artery stenosis: (12) Coronary artery disease: (13) TIA (transient ischemic attack): (14) BPH (benign prostatic hyperplasia): (15) Depression: (16) Hyperlipidemia: (17) Dysphagia: PLAN: Plan 89 year old male with below past medical history hospitalized for SDH, SAH, multiple traumatic fractures, complicated by dysphagia requiring dobbhoff TF, admitted to TCU with debility, here for rehabilitation, strengthening, prior to discharge home with . * Debility - PT/OT. * Dysphagia - s/p peg, clear liquid diet today. * Pain - Tylenol 650mg q6, Oxycodone 5mg q4 prn. * Bowel - Miralax 17gm daily, Senokot 1 tablet qhs. * Adult immunization - Administer pneumonia vaccine, covid vaccine, flu vaccine as appropriate. * DVT prophylaxis - Held. * Hypertension - Metoprolol 25mg bid, Lisinopril 40mg daily, Amlodipine 5mg daily. * Coronary artery disease - Metoprolol 25mg bid, Lisinopril 40mg daily, Aspirin 81mg daily. * Vitamin D deficiency - D 125mcg daily. * Vitamin B12 deficiency - B12 1000mcg daily. * Inflammatory polyarthropathy - MTX 20mg qweek, Folic acid 2mg daily. * Nutrition - Jevity 1.5 50ml/hour. * GERD - Lansoprazole 30mg daily. * Macular degeneration - Healthy Eyes 1 capsule daily. * Nausea - Zofran odt 4mg q8 prn. * Hyperlipidemia - Pravastatin 40mg qhs. * BPH - Doxazosin 4mg qhs. * Shortness of breath - Albuterol 2 puffs q4 prn. * Rash - HC topical bid prn. * Diarrhea - Loperamide 2mg q2h prn. * Skin irritation - Calmoseptine topical bid. * Dry Eyes - Artifiical tears 2 gtt q1h prn. The following psychotropic medication was present on admission: Elavil 10mg qhs. Psychotropic medication therapy is indicated for a diagnosis of: Insomnia. Based on my clinical evaluation, continuation of the medication is necessary at this time. Gradual dose reduction plan (select one): ____ GDR will be attempted. Will monitor patient symptoms and behaviors in response to GDR. __x__ GRD contraindicated. 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 The following psychotropic medication was present on admission: Lexapro 5mg daily. Psychotropic medication therapy is indicated for a diagnosis of: Depression. Based on my clinical evaluation, continuation of the medication is necessary at this time. Gradual dose reduction plan (select one): ____ GDR will be attempted. Will monitor patient symptoms and behaviors in response to GDR. __x__ GRD contraindicated. 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 06/23/25 1703 <Electronically signed by Jesus Alberto Wiggins MD> Cosigner Signature (if applicable): CC: ~ Signed ADDENDUM by Dr. Jesus Alberto Wiggins MD on 07/01/25 at 1720 Addendum GERD - Pantoprazole 40mg daily. 07/01/25 1720<Electronically signed by Jesus Alberto Wiggins MD> Cosigner Signature (if applicable): cc: ~* Signed [facility] Work Phone: [phone] 347-736009-10-2025 Progress note [facility] Medical Records Department [address] [place] [address] Progress Note - [facility] 06/23/25 1658 MR#: [id number] Acct: [id number] Name: FAWN CAMERON Rep #:[id number] : 1935 89 From: Jesus Alberto Wiggins MD PCP: Dr. Devan Barrera MD Status:AD M IN Location: [place] [address] Subjective Subjective Resident seen, examined. He is dressed, sitting in chair, no distress. Today, MBS cleared him for clear liquid diet. He has not eaten for 42 days. He is happy, and he is progressing in therapy. I am hopeful he will be able to go back to regular diet, and go home. Objective Data Objective Data Vital Signs: Vital Signs Temp Pulse Resp BP Pulse Ox O2 Del Method O2 Flow Rate 97.6 F L 89 16 106/60 94 Room Air 98 06/23/25 10:51 06/23/25 14:00 06/23/25 14:00 06/23/25 10:51 06/23/25 14:00 06/23/25 14:00 06/01/25 13:16 Oxygen Flow Rate (L/min) 98 Oxygen Delivery Method Room Air Weight: 66.633 kg Body Mass Index (BMI) 23.6 Intake & Output: Intake and Output for Last 24 Hours 06/21/25 06/22/25 06/23/25 23:59 23:59 23:59 Intake Total 750 / 750 420 / 420 Output Total 300 / 300 650 / 650 550 / 550 Balance 450 / 450 -230 / -230 -550 / -550 Medical Nutrition Assessment Dietitian: Malnutrition Criteria Met Start: 05/21/25 14:30 Freq: Status: Active Protocol: Document 06/03/25 09:58 SLA (Rec: 06/03/25 09:59 SLA [id number]) Nutrition Malnutrition Evidence of Yes Malnutrition Exists Malnutrition (severe Acute Illness/Injury ): Evidenced By Suboptimal Energy Intake (Severe),Weight Loss (Severe) Intake Problem Increased Nutrient Needs (specify) Etiology protein related to skin status Signs/Symptoms as evidenced by PI neville buttock Status Active Problem Inadequate Oral Intake Etiology related to swallowing difficulty Signs/Symptoms as evidenced by NPO and need for enteral nutrition support Status Active Problem Clinical Problem Acute Disease or Injury Related Malnutrition Etiology severe protein-calorie malnutrition in the context of acute illness and injury related to swallowing difficulty and inadequate energy intake Signs/Symptoms as evidenced by ~10% unintentional weight loss x less than 1 month and oral intake meeting less than 50-75% estimated nutrition needs; need for enteral nutrition support Status Active Problem Recommendation Dietitian NPO; W[employer] SERVICE SUPERVISOR evaluation to assess ability to safely take Recommendations/ oral nutrition. Changes Will change bolus tf to 240 ml Jevity 1.5 w/ 180 ml water flush 5x/day (800, 1100, 1400, 1800, 2200) to provide 1800 randy / 76 gm pro/ 1812 ml free water/day. Rec Khalif bid w/ medpass if warranted to help w/ wound healing. Will monitor TF tolerance, weight and follow-up. Lab / Micro Data 06/18/25 05:16 06/18/25 05:16 Micro: Microbiology 06/18/25 11:20 Urine Catheter - Catheter Urine Culture - Final Culture exhibits no growth. 06/15/25 06:31 Nasal Secretion SARS-CoV-2 Antigen (Rapid) - Final 06/13/25 05:00 Nasal Secretion SARS-CoV-2 Antigen (Rapid) - Final 06/11/25 05:23 Nasal Secretion SARS-CoV-2 Antigen (Rapid) - Final 05/26/25 11:07 Mucosa - Nasopharyngeal Respiratory Panel (PCR) - Final 05/26/25 10:05 Nasal Secretion SARS-CoV-2 Antigen (Rapid) - Final 05/21/25 18:55 Urine Catheter - Catheter Urine Culture - Final Culture exhibits no growth. Physical Exam Const alert General Appearance: cooperative HEENT normocephalic Eyes PERRL and EOMs intact bilaterally Neck supple, no JVD and no carotid bruits Resp normal respiratory effort, normal air movement and clear to auscultation bilaterally Cardio regular rate and regular rhythm GI normal to inspection, nondistended, normoactive bowel sounds, non-tender and non-distended GI Narrative: s/p peg. Extremity normal capillary refill General Extremity: Negative for edema Skin no rashes or lesions noted General Skin Exam: no breakdown Psych affect normal Appearance: appropriate Assessment & Plan Assessment/Plan (1) Debility: (2) Orbital floor fracture: (3) Orbital roof fracture: (4) SDH (subdural hematoma): (5) SAH (subarachnoid hemorrhage): (6) Bilateral pubic rami fractures: (7) Sacral fracture: (8) GERD (gastroesophageal reflux disease): (9) Essential (primary) hypertension: (10) Osteoarthritis: (11) Carotid artery stenosis: (12) Coronary artery disease: (13) TIA (transient ischemic attack): (14) BPH (benign prostatic hyperplasia): (15) Depression: (16) Hyperlipidemia: (17) Dysphagia: PLAN: Plan 89 year old male with below past medical history hospitalized for SDH, SAH, multiple traumatic fractures, complicated by dysphagia requiring dobbhoff TF, admitted to TCU with debility, here for rehabilitation, strengthening, prior to discharge home with . * Debility - PT/OT. * Dysphagia - s/p peg, clear liquid diet today. * Pain - Tylenol 650mg q6, Oxycodone 5mg q4 prn. * Bowel - Miralax 17gm daily, Senokot 1 tablet qhs. * Adult immunization - Administer pneumonia vaccine, covid vaccine, flu vaccine as appropriate. * DVT prophylaxis - Held. * Hypertension - Metoprolol 25mg bid, Lisinopril 40mg daily, Amlodipine 5mg daily. * Coronary artery disease - Metoprolol 25mg bid, Lisinopril 40mg daily, Aspirin 81mg daily. * Vitamin D deficiency - D 125mcg daily. * Vitamin B12 deficiency - B12 1000mcg daily. * Inflammatory polyarthropathy - MTX 20mg qweek, Folic acid 2mg daily. * Nutrition - Jevity 1.5 50ml/hour. * GERD - Lansoprazole 30mg daily. * Macular degeneration - Healthy Eyes 1 capsule daily. * Nausea - Zofran odt 4mg q8 prn. * Hyperlipidemia - Pravastatin 40mg qhs. * BPH - Doxazosin 4mg qhs. * Shortness of breath - Albuterol 2 puffs q4 prn. * Rash - HC topical bid prn. * Diarrhea - Loperamide 2mg q2h prn. * Skin irritation - Calmoseptine topical bid. * Dry Eyes - Artifiical tears 2 gtt q1h prn. The following psychotropic medication was present on admission: Elavil 10mg qhs. Psychotropic medication therapy is indicated for a diagnosis of: Insomnia. Based on my clinical evaluation, continuation of the medication is necessary at this time. Gradual dose reduction plan (select one): ____ GDR will be attempted. Will monitor patient symptoms and behaviors in response to GDR. __x__ GRD contraindicated. 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 The following psychotropic medication was present on admission: Lexapro 5mg daily. Psychotropic medication therapy is indicated for a diagnosis of: Depression. Based on my clinical evaluation, continuation of the medication is necessary at this time. Gradual dose reduction plan (select one): ____ GDR will be attempted. Will monitor patient symptoms and behaviors in response to GDR. __x__ GRD contraindicated. 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 06/23/25 1703 Cosigner Signature (if applicable): CC: ~ Signed ADDENDUM by Dr. Jesus Alberto Wiggins MD on 07/01/25 at 1720 Addendum GERD - Pantoprazole 40mg daily. 07/01/25 1720 Cosigner Signature (if applicable): cc: ~* Signed [facility]09-07-2025 Radiology Diagnostic study note [facility] Imaging Services [address] [place] [id number] Abdomen Single View MR#: [id number] Acct: [id number] Name: FAWN CAMERON Rep #: [id number] : 1935 M 89 From: Elenita Stout MD PCP: Dr. Devan Barrera MD Status: AD M IN Study:Abdomen Single View Date of Exam: 06/28/25 Exam# [id number] Ordering Dr: Jesus Alberto Wiggins MD PROCEDURE: ABDOMEN SINGLE VIEW 06/28/2025 REASON FOR EXAM: INCREASE DIARRHEA TECHNIQUE: Procedure Code: RADABD Modality: DX Procedure: ABDOMEN SINGLE VIEW COMPARISON: None FINDINGS: Limitations: Evaluation for free intraperitoneal air and bowel air-fluid levels is suboptimalwithout upright views. Gastrointestinal: A catheter is seen overlying the left upper quadrant, possibly a percutaneous gastrostomy tube. Location of percutaneous gastrostomy tube can not be confirmed by these views. Visualized bowel gas pattern is nonspecific. Gas and stool filled loops of bowel seen overlying the abdomen and pelvis. No significant asymmetric small bowel gaseous distention to suggest a complete obstruction. If intra-abdominal inflammatory or infectious changes are suspected, further evaluation by contrast-enhanced CT is advised. Diaphragm: The right hemidiaphragm is elevated compared to the left of indeterminate significance. Lung bases: No consolidation or effusion at the visualized lung bases. Osseous: Scoliosis and severe degenerative change of the lumbar spine. Severe osteoarthritic change of the right hip. Left hip replacement extending below the level of imaging. Vascular: Extensive vascular calcifications noted. Soft tissue: Soft tissue abnormality is not reliably assessed by this technique. RAD/Abdomen Single View IMPRESSION: Nonspecific findings. - Findings, limitations and recommendations discussed above. Reading Location[facility] CC: Dr. Devan Barrera MD; Dr. Jesus Alberto Wiggins MD ~ Game Designer: Signed [facility]09-03-2025 Procedure note [facility] Speech Pathology [address] [place] [address] Modified Barium Swallow Study MR#: [id number] Acct: [id number] Name: FAWN CAMERON Rep #:[id number] : 1935 89 From: Lincoln Coats, [facility]-WARD SERVICE SUPERVISOR Modified Barium Swallow Patient Information Study Date: 06/23/25 Study Time: 13:00 Direct Billable Minutes: 101 Total Minutes procedure & reportin Diagnosis: Dysphagia R13.10 Referring Physician: Jesus Alberto Wiggins Chi Reason for Referral: Re-assess swallow function and risk for aspiration to determine if patient is safe for diet advancement s/p EGD w/ dilation and botox injection of UES. 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 Injuries:?1. Right orbital floor. 2. Buckle fracture right anterior cranial floor/orbital roof. 3. Small right subdural hematoma. 4. Trace right frontal SAH.?5. Bilateral pubic rami fracture with extension to acetabular wall.?6. Nondisplaced Sacral ala fracture right. Incidental findings:?1. 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 Left common iliac aneurysm..?3. Right common iliac aneurysm. During his hospitalization 05/10/25-05/20/25 he was also diagnosed with severe oropharyngeal dysphagia with recommendation for NPO. A Dobhoff was placed05/14/25 after MBSS revealed severe oropharyngeal dysphagia w/ silent aspiration of all liquid consistencies. Other noted concerns from MBSS were severe cervicallordosis, delayed initiation of the pharyngeal swallow, incomplete airway closure, reduced pharyngeal constriction, reduced UES opening/duration, and ineffective cued coughs. Admitted to [facility] 05/20/[address], OT, PT prior to discharge home w/ . ?ST evaluation 05/21/2025 recommended NPO. 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 The patient participated in 10 dysphagia therapy sessions w/ oropharyngeal strengthening in junction w/ NMES, as well as thin water trials w/WARD SERVICE SUPERVISOR and vocal adduction exercises. Repeat MBSS 06/15/2025 revealed moderate-severe oropharyngeal dysphagia and esophageal dysphagia w/ recommendations for NPO, Ok for trials of puree and mildly thick liquids w/ WARD SERVICE SUPERVISOR only. Recommend tsp bites of puree consistencies w/ use of effortful, multiple swallows. Recommend tsp sips of mildly thick liquids w/ use of effortful, multiple swallow and cough/throat clear and re-swallow w/ each sip. Pt was recommended for GI consult, as well.Per treating WARD SERVICE SUPERVISOR, the patient has tolerated sips of mildly thick liquids via tsp and cup w/o need for cough and re-swallow; however, pudding trials have been difficult for the patient. He underwent EGD 06/17/2025, which revealed abnormal esophageal motility, established achalasia. Dilated. Injectedwith botulinum toxin. WARD SERVICE SUPERVISOR clarified w/ Friend re: site of botox injection and dilation via Backline. He reported pt had dilation of UES and LES,as well as botox injection at the UES. This MBSS was recommended to determine ifpt has improved pharyngeal clearance of food/drink for potential diet advancement s/p EGD. PMH: Dysphagia, HLD, Depression, BPH, TIA, CAD, Carotid artery stenosis, Osteoarthritis, HTN, GERD,Sacral fracture, Bilateral pubic rami fractures, SAH,SDH, Orbital roof fracture, Orbital floor fracture, Debility. Current Diet Ordered: NPO Dentition: Natural Teeth and Missing Teeth Mental Status: Impaired (Per MoCA on initial evaluation. Did not impact exam.) Respiratory Status: Oxygenating on Room Air Penetration-Aspiration Scale Penetration-Aspiration Scale: OBJECTIVE ASSESSMENT OF SWALLOW FUNCTION (QUANTITATIVE ? PER TRIAL): PENETRATION / ASPIRATION SCALE (DE JESUS): 1 = does not enter airway 2 = enters airway/above vocal folds/ejected 3 = enters airway/above vocal folds/not ejected 4 = enters airway/contacts vocal folds/ejected 5 = enters airway/contacts vocal folds/not ejected 6 = enters airway/below vocal folds/ejected 7 = enters airway/below vocal folds/not ejected despite effort 8 = enters airway/below vocal folds/no effort VIDEOFLOROSCOPIC SCALE SCORE (DE JESUS): Grade I = aspiration of material that has penetrated into the laryngeal vestibule, intact cough reflex Grade II = aspiration < 10 % of the bolus, intact cough reflex Grade III = aspiration of < 10 % of the bolus, reduced cough reflex or aspiration of > 10 % of the bolus, intact cough reflex Grade IV = aspiration of > 10 % of the bolus, reduced cough reflex Penetration-Aspiration Scale Score [place] Thick Liquid via teaspoon: Result: 3= enters airways/above vocal folds/not ejected [place] Thick Liquid via small single sip: cup: Result: 4= enters airway/contacts vocal folds/ejected [place] Thick Liquid via small single sip: cup Effortful swallow: Result: 2= enter airway/above vocal folds/ejected Thin Liquid via teaspoon: Result: 1= does not enter airway Thin Liquid via small single sip: cup Effortful swallow: Result: 2= enter airway/above vocal folds/ejected Pudding via teaspoon: Result: 1= does not enter airway Comment: Trace post prandial aspiration, likely of residues of previous trials. Esophageal screen - Mild retention in the upper and lower esophagus. Thin Liquid via small single sip: cup Effortful swallow Trial 2: Result: 8= enters airway/below vocal folds/no effort Comment: Cued cough and re-swallow Esophageal screen - Liquid wash cleared residues of previous trial from the lower esophagus. Mild retention of barium remaining in the upper esophagus. [place] Thick Liquid via small single sip: cup Effortful swallow Trial 2: Result: 2= enter airway/above vocal folds/ejected Comment: Silent post prandial aspiration, likely of trace residues of previous trial remaining on the vocal folds. [place] Thick Liquid via small single sip: cup Effortful swallow Trial 3: Result: 3= enters airways/above vocal folds/not ejected Thin Liquid via teaspoon Trial 2: Result: 7= enters airways/below vocal folds/not ejected despite effort Comment: Delayed, weak cough response Pudding via teaspoon Trial 2: Result: 2= enter airway/above vocal folds/ejected Comment: Silent post prandial aspiration, likely of trace residues of previous trial remaining on the vocal folds. [place] Thick Liquid via small single sip: cup Effortful swallow Trial 4: Result: 3= enters airways/above vocal folds/not ejected Oral Phase Labial Seal: No Labial Escape Tongue Control During Bolus Hold: Posterior escape of greater than half of bolus(pudding) Bolus Transport/Lingual Motion: Repetitive/disorganized tongue motion Oral Residue: Residue collection on oral structures Pharyngeal Phase Initiation of Pharyngeal Swallow: Bolus head at posterior laryngeal surgace of epiglottis Soft Palate Elevation: Escape to nasopharynx Laryngeal Elevation: Partial superior movement thyroid cart/partial apprx aryt- epig petiole Anterior Hyoid Excursion: Partial anterior movement Epiglottic Movement: Partial inversion Laryngeal Vestibule Closure at Height of Swallow: Incomplete; narrow column of air/contrast in laryngeal vestibule Pharyngeal Stripping Wave: Present - diminished Pharyngoesophageal Segment Opening: Parital distension and partial duration; parital obstruction offlow Tongue Base Retraction: Wide column of contrast between tongue base & post. pharyngeal wall Pharyngeal Residue: Collection of residue within or on pharyngeal structures Esophageal Phase Esophageal Clearance: Esophageal retention Diagnosis/Impression Diagnosis: Moderate-severe oropharyngeal dysphagia R13.12 MBS Impressions: The oral phase is primarily marked by... -Did not assess mastication abilities again due to deficits pharyngeal clearanceof pudding and concern for increased risk for choking w/ solids; however, pharyngeal clearance has somewhat improved. -Mildly decreased bolus control w/ posterior loss of >1/2 of pudding bolus to the posterior surface of the epiglottis prior to swallow onset. -Continued lingual pumping w/ pudding. The pharyngeal phase is primarily marked by... -Continued decreased pharyngeal motility secondary to poor TB retraction and pharyngeal stripping wave. Mildly thick liquid wash was somewhat effective in clearing these pharyngeal residues. -Continued decreased airway closure secondary to decreased laryngeal elevation and anterior hyoid excursion w/ partial epiglottic inversion; however, improved airway closure w/ mildly thick liquid trials as compared to previous MBSS. SILENT aspiration of thin liquids by cup. Overt aspiration of thin by tsp w/ weak, delayed reflexive cough. Trace post prandial aspiration observed during the MBSS 3X, likely on residues of thin liquid trials. The esophageal phase is marked by... -Mild retention in the upper and lower esophagus. Liquid wash cleared residues of pudding from the lower esophagus. Mild retention of barium remained in the upper esophagus after liquid wash. Recommendations Diet: Mildly Thick Liquids Comment: Patient is safe for any liquids that are mildly/nectar thick - No purees (cream of wheat, oatmeal, yogurt, pudding, or magic cup). Compensatory Strategies: Small Sips (HARD SWALLOWS), Slow Rate (Sips one at a time), Sitting upright and Remain sitting upright for 30 minutes after PO intake Supervision: Distant Supervision Recommend Repeat Modified Barium Swallow: Yes Need for Skilled Speech Therapy Services: Yes Comment: -Continue per TCU dysphagia POC utilizing NMES in junction w/ oropharyngeal exercise and po trials w/ WARD SERVICE SUPERVISOR. -Trial puree textures w/ WARD SERVICE SUPERVISOR w/ use of multiple, hard swallows and alternating bites and sips 1:1 ratio. Monitor respiratory status closely. If tolerating trials and deemed appropriate by treating WARD SERVICE SUPERVISOR, would consider further diet advancement to purees. Education Completed: 1. Described result of evaluation. and 2. Pt understands evaluation & agrees with goals and treatment plan. Status Active ST Patient: Active Contact Information [facility] Speech Therapy:: Lincoln Jensen M.A. [facility]-WARD SERVICE SUPERVISOR Speech-Language Pathologist [facility] [address] [place] [address] [email or web address] [phone] 06/24/25 130Toan Verma CCC-WARD SERVICE SUPERVISOR> Date/Time Lincoln Jensen M.A., CCC-WARD SERVICE SUPERVISOR Co-Signature Required for all Medicare patients Date/Time Co-Signature CC: ~ [facility]08-27-2025 History and physical note Author Stan Ferrara [facility] Note Date/Time June 17, 2025 3: 50pm [facility] Medical Records Department [address] [place] [address] History & Physical Exam 06/17/25 1549 MR#: [id number] Acct: [id number] Name: FAWN CAMERON Rep #:[id number] : 1935 89 From: Stan Ferrara DO PCP: Dr. Devan Barrera MD Status:[facility] Location: [place] [address] HPI - General General Date of Admission: 06/17/25 Date of Service: 06/17/25 HPI Narrative FAWN CAMERON, is a 89 M who presentsReason for Consultation: Ongoing dysphagia and abnormal swallowing study HPI Narrative: 89 year old male with below past medical history hospitalized for SDH, SAH, multiple traumatic fractures, complicated by dysphagia requiring dobbhoff TF, admitted to TCU with debility. I was consulted to see him due to his inability to swallow safely and need for placement of PEG tube. A PEG tube was placed. He recently underwent a repeat video swallow and was discovered to have problemsat the level of the upper esophageal sphincter in decreased clearance of liquidsonce and into the esophagus. He has been having problems with dysphagia, coughing, and a wet, gurgly vocal quality following meals * Video Swallow Study (VFSS):?Shows poor upper esophageal sphincter (UES) opening during swallowing. * Oral Phase:?Noted to be intact and within functional limits. * Pharyngeal Phase: * Initiation of swallow is delayed, with bolus pooling in the pharyngeal and pyriform sinuses. * Hyolaryngeal excursion (upward and forward movement) is reduced, contributing to the poor UES opening. * Following the swallow, significant residue is observed in the pharyngeal area. * Airway Protection:?Penetration and trace aspiration are observed with thin liquids due to UES dysfunction and residual pooling. * Esophageal Phase:?The limited view of the esophageal phase shows possible poor motility, but a full evaluation is warranted. [facility] Medical History Former smoker Wears hearing aid Easy bruising Cardiology follow-up encounter Dysphagia Hyperlipidemia Depression BPH (benign prostatic hyperplasia) TIA (transient ischemic attack) Coronary artery disease Carotid artery stenosis Osteoarthritis Essential (primary) hypertension GERD (gastroesophageal reflux disease) Sacral fracture Bilateral pubic rami fractures SAH (subarachnoid hemorrhage) SDH (subdural hematoma) Orbital roof fracture Orbital floor fracture Debility Home Medications ?Medication ?Instructions ?Recorded ?Last Taken ?Type acetaminophen 325 mg capsule 650 mg feeding tube Q6H P ain 05/20/25 06/17/25 History alfuzosin 10 mg tablet,extended 10 mg PO DAILY BPH Unknown History release 24 hr amitriptyline 10 mg tablet 10 mg feeding tube QHS Mood 05/20/25 Unknown History amlodipine 5 mg tablet 5 mg feeding tube DAILY BP 0 05/20/25 06/17/25 History aspirin 81 mg tablet 81 mg PO DAILY Heart 5 Unknown History benazepril 40 mg tablet 40 mg feeding tube DAILY BP 05/20/25 06/16/25 History bisacodyl 5 mg tablet 5 mg PO DAILY PRN constipati on 05/20/25 Unknown History cholecalciferol (vitamin D3) 125 125 mcg feeding tube DAILY 05/20/25 05/20/25 10:20 History mcg (5,000 unit) tablet Supplement cyanocobalamin (vitamin B-12) 1,000 mcg PO DAILY Suppl ement 05/20/25 05/20/25 10:25 History 1,000 mcg capsule escitalopram oxalate 5 mg tablet 5 mg feeding tube SID LY Mood 05/20/25 06/17/25 History folic acid 1 mg tablet 2 mg feeding tube DAILY Supp lement 05/20/25 Unknown History methotrexate sodium 5 mg tablet 20 mg feeding tube QWE EK Arthritis 05/20/25 Unknown History (Trexall) metoprolol tartrate 25 mg tablet 25 mg feeding tube BI D BP 05/20/25 06/17/25 History omeprazole 40 mg capsule,delayed 40 mg PO DAILY GERD 0 05/20/25 Unknown History release ondansetron HCl 4 mg tablet 4 mg feeding tube Q8H PRN nausea 05/20/25 Unknown History and vomiting oxycodone 5 mg tablet 5 mg feeding tube Q4H PRN pa in 05/20/25 Unknown History (scale score 7-10) pantoprazole 40 mg tablet,delayed 40 mg PO DAILY GERD 05/20/25 Unknown History release polyethylene glycol 3350 17 17 g feeding tube DAILY Unknown History gram/dose oral powder (Miralax) Constipation pravastatin 40 mg tablet 40 mg feeding tube QHS Vivian sterol 05/20/25 Unknown History sennosides 8.6 mg tablet (Senokot) 8.6 mg PO QHS Const ipation 05/20/25 Unknown History vitamins A,C,M-oeqf-mucosd 4,296 1 cap PO DAILY Eye Vi tamin 05/20/25 Unknown History mcg-226 mg-90 mg capsule (Healthy Eyes SuperVision) doxazosin 4 mg tablet (Cardura) 4 mg PO QHS 05/25/25 0 06/16/25 History lactose-reduced food-fiber 0.07 See Rx Instructions fe eding tube 05/25/25 Unknown History gram-1.5 kcal/mL liquid for tube .COMPLEX feed (Isosource 1.5 Randy) menthol 0.44 %-zinc oxide 20.6 % 1 applic topical BID 05/25/25 Unknown History topical ointment (CalaSoothe) Allergy/AdvReac Type Severity Reaction Status Date / Time No Known Allergies Allergy Verified 06/17/25 14:33 Family History Mother Hypertension Hyperlipidemia, unspecified Osteoarthritis Hearing loss Vision loss Father Heart disease Pneumonia CVA (cerebral vascular accident) Hearing loss Suicide attempt Surgical History History of wisdom tooth extraction History of vasectomy History of tonsillectomy and adenoidectomy History of total hip arthroplasty History of shoulder surgery History of hernia repair History of colonoscopy History of circumcision History of cataract surgery History of cardiac catheterization Social History household members: spouse Smoking Status: Former smoker alcohol intake: never substance use type: does not use ROS Constitutional Constitutional: Denies fatigue, fever(s), poor appetite, weight gain or weight loss Gastrointestinal Gastrointestinal: Denies belching, bloating, change in bowel habits, change in stool character, chewing difficulty, coffee ground emesis, constipation, cramping, diarrhea, dyspepsia, dysphagia, early satiety, excessive flatus, fecalincontinence, heartburn, hematemesis, hematochezia, hemorrhoids, loose stools, melena, nausea, odynophagia, rectal bleeding, tenesmus, vomiting or weight changes Vital Signs Vital Signs Vital Signs: 06/17/25 14:38 06/17/25 14:38 06/17/25 14:56 Temperature 97.9 F 97.9 F Temperature Source Temporal Pulse Rate 69 69 Respiratory Rate 16 16 Respiratory Pattern Normal Blood Pressure 122/53 H 122/53 H Blood Pressure Mean 76 Blood Pressure Source Monitor Blood Pressure Position Semi-Fowlers Blood Pressure Location Left Arm Pulse Ox 94 94 Oxygen Delivery Method Room Air Room Air Weight Weight: 149 lb 11.102 oz Body Mass Index (BMI) 24.1 Physical Exam Const alert, oriented x3, no apparent distress and healthy appearing General Appearance: cooperative GI normal to inspection, nondistended, normoactive bowel sounds, soft to palpation,non-tender and non-distended Percussion: normal to percussion Rectal Exam: deferred Assessment & Plan Assessment/Plan (1) Dysphagia: PLAN: The 89-year-old male is diagnosed with oropharyngeal dysphagia, specifically related to poor UES opening likely due to subarachnoid hemorrhage and subdural hematoma. He has reduced hyolaryngeal excursion, which is a commonage-related change, is a primary biomechanical cause. His advanced age also places him at a higher risk for silent aspiration, a severe complication of dysphagia where aspiration occurs without a cough or other sign of distress. The patient will be managed very well with a combination of compensatory strategies, strengthening exercises, and nutritional support. He may need esophageal manometry or repeat endoscopy to rule out other esophageal issues such as achalasia, strictures, or diverticulum. So the plan will be for him to have repeat upper endoscopy on 06/17/2025. Please hold his tube feedings at midnight on 06/16/2025. 06/17/25 1550 <Electronically signed by Stan Ferrara DO> Cosigner Signature (if applicable): CC: Dr. Devan Barrera MD; Stan Friend, DO~ Signed [facility] Work Phone: [phone] 989-187308-27-2025 Consult note Author Carlos Yang [facility] Note Date/Time June 17, 2025 2: 56pm [facility] Medical Records Department [address] [place] [address] Pre-Anesthesia Evaluation 06/17/256 MR#: [id number] Acct: [id number] Name: FAWN CAMERON Rep #:[id number] : 1935 89 From: Carlos Yang MD PCP: Dr. Devan Barrera MD Status:RE G SDC Y Race: C Location: [place] [address] ASA Classification* ASA Classification ASA Classification: 3 Assessment & Plan Anesthesia* Anesthesia Assessment Anesthesia Assessment: Discussed sedation and/or anesthesia options, risks, benefits, and alternatives with patient/parents/legal guardian/POA. Questions invited. The patient/parents/legal guardian/POA seems to understand and agrees to proceedwith anesthesia plan. Reviewed the physical assessment, medical history, allergy history and patient home medications list prior to surgery/procedure/anesthetic and documented any changes. Performed airway and anesthesia risk assessments. Anesthesia Type Anesthesia Type: MAC History Source History Obtained from:: Patient and Chart Anesthesia Focused Assessment* Temperature: 97.9 F Pulse Rate: 69 Blood Pressure: 122/53 Respiratory Rate: 16 Pulse Ox: 94 Oxygen Delivery Method: Room Air Airway Assessment Mouth opens: >3 cm Mallampati Score: III Teeth Condition: Chipped/Broken Neck Range of motion (ROM): Full ROM Labs Anesthesia Preop lab: CBC WBC 6.3 K/mm3 (4.4-11.0) 06/17/25 05:25 06/17/25 RBC 3.16 M/mm3 (4.6-6.2) L 06/17/25 05:06/17/25 Hgb 10.4 g/dL (13.0-16.5) L 06/17/25 05: 5 Hct 31.2 % (40-54) L 06/17/25 05:25 06/17/25 Plt Count 285 K/mm3 (150-450) 06/17/25 05:25 06/17/25 CHEMISTRY Potassium 5.0 mmol/L (3.3-5.1) 06/17/25 05:25 06/17/25 Sodium 131 mmol/L (133-145) L 06/17/25 05:25 06/17/25 BUN 20 mg/dL (4-19) H 06/17/25 05:25 06/17/25 Creatinine 0.64 mg/dL (0.70-1.20) L 06/17/25 05:25 Glucose 96 mg/dL (70-99) 06/17/25 05:25 06/17/25 POC Glucose 94 mg/dL (74-106) 06/15/25 05:50 06/15/25 COAG PT 13.8 SECONDS (11.7-14.9) 06/17/25 05:25 Pre-Assessment Diagnosis/Proposed Procedure Planned Operative Procedure(s): EGD Anesthesia History Anesthesia History - thermostat maker: Anesthesia History - thermostat maker Hx Hospitalization Yes: TCU 06/16/25 15:44 Any Problems With Anesthesia No 06/16/25 15:44 Cholinesterase deficiency No 06/16/25 15:44 You/Your Family Experience No 06/16/25 15:44 fever (hyperthermia) with Relationship Recent Exposure to Contagious No 06/17/25 14:38 Disease Does patient have nerve No 06/16/25 15:44 stimulator Patient instructed to have device shut off --Does patient have Pacemaker or ICD? When Was Last Pacemaker Check QUESTION #4 FULL TEXT: You/Your Family Experience fever (hyperthermia) with Anesthesia Last Oral Intake Last Oral intake: Last Oral Intake NPO since 00:00 06/17/25 14:38 Meds taken in AM with sips of Yes 06/17/25 14:38 water? Meds patient instructed to take am of surgery PONV PONV - thermostat maker: PONV - thermostat maker Female No 06/16/25 15:44 HX of Motion Sickness No 06/16/25 15:44 HX of N/V After Surgery No 06/16/25 15:44 Non-Smoker Yes 06/16/25 15:44 Duration of Surgery greater No 06/16/25 15:44 than 60 minutes Number of Risk Factors 1 06/16/25 15:44 PONV Score Low Risk 06/16/25 15:44 Height & Weight Height & Weight: Anesthesia: Height & Weight Height 5 ft 6 in 06/17/25 14:38 Weight: 67.9 kg 06/17/25 14:38 Body Mass Index (BMI) 24.1 06/17/25 14:38 Respiratory Assessment Respiratory Assessment - thermostat maker: Respiratory Tract Infection Hx - thermostat maker Hx Respiratory Tract Infection No 06/16/25 15:44 STOP Sleep Apnea STOP Sleep Apnea - thermostat maker: STOP Sleep Apnea - thermostat maker Hx Hypertension Yes 06/16/25 15:44 Hx Sleep Apnea Yes 06/16/25 15:44 CPAP No 06/16/25 15:44 BIPAP No 06/16/25 15:44 Do you snore loudly (louder than talking or can be heard Do you often feel tired/ fatigued/ sleepy during daytime? Has anyone observed you stop breathing during sleep? STOP Results Positive 06/16/25 15:44 QUESTION #5 FULL TEXT : Do you snore loudly (louder than talking or can be heard through closed doors)? Tobacco Use History Tobacco Use History - thermostat maker: Tobacco Use History - thermostat maker Tobacco Use Smoking Status Former smoker 06/16/25 15:44 Hx Tobacco Use No 06/16/25 15:44 Years Smoking Packs Smoked per Day Smoking Cessation Date was No - quit smoking greater 06/16/25 15:44 within the last 15 years than 15 years ago Hx Smoking Cessation Date Hx Smoking Cessation No 06/16/25 15:44 Counseling Hematologic Medial History Hematologic Hx - thermostat maker: Hematologic Medical Hx - protocol manager Hx of Blood Transfusion No 06/16/25 15:44 Hx of Transfusion in last 3 No 06/16/25 15:44 Months Date of Last Transfusion (if within last 3 months) Ever experience any problems No 06/16/25 15:44 with transfusion(s)? Specify any problems Hx of Preganancy in last 3 N/A 06/16/25 15:44 Months Nurse Filling Out Transfusion [email or web address] 06/16/25 15:44 & Questions: Date: 06/16/25 06/16/25 15:44 Time: 15:48 06/16/25 15:44 Patient unable to answer at this time (ie. confused, unrespo /Reproduction History /Reproductive History - thermostat maker: /Reproductive Hx- thermostat maker Hx Now Gestational Age (in weeks): EDC: Hx Hx Para Hx Section SAB Active Medications Active Medications: Current Medications Generic Name Dose Route Start Last Admin Trade Name Freq PRN Reason Stop Dose Admin Lactated Ringer's 1,000 mls @ 15 mls/hr 06/17/25 14:30 06/17/25 14:43 IV 15 mls/hr .Q48H SILVANO Administration PFSH Medical History Former smoker Wears hearing aid Easy bruising Cardiology follow-up encounter Dysphagia Hyperlipidemia Depression BPH (benign prostatic hyperplasia) TIA (transient ischemic attack) Coronary artery disease Carotid artery stenosis Osteoarthritis Essential (primary) hypertension GERD (gastroesophageal reflux disease) Sacral fracture Bilateral pubic rami fractures SAH (subarachnoid hemorrhage) SDH (subdural hematoma) Orbital roof fracture Orbital floor fracture Debility Home Medications ?Medication ?Instructions ?Recorded ?Last Taken ?Type acetaminophen 325 mg capsule 650 mg feeding tube Q6H P ain 05/20/25 06/17/25 History alfuzosin 10 mg tablet,extended 10 mg PO DAILY BPH Unknown History release 24 hr amitriptyline 10 mg tablet 10 mg feeding tube QHS Mood 05/20/25 Unknown History amlodipine 5 mg tablet 5 mg feeding tube DAILY BP 0 05/20/25 06/17/25 History aspirin 81 mg tablet 81 mg PO DAILY Heart 5 Unknown History benazepril 40 mg tablet 40 mg feeding tube DAILY BP 05/20/25 06/16/25 History bisacodyl 5 mg tablet 5 mg PO DAILY PRN constipati on 05/20/25 Unknown History cholecalciferol (vitamin D3) 125 125 mcg feeding tube DAILY 05/20/25 05/20/25 10:20 History mcg (5,000 unit) tablet Supplement cyanocobalamin (vitamin B-12) 1,000 mcg PO DAILY Suppl ement 05/20/25 05/20/25 10:25 History 1,000 mcg capsule escitalopram oxalate 5 mg tablet 5 mg feeding tube SID LY Mood 05/20/25 06/17/25 History folic acid 1 mg tablet 2 mg feeding tube DAILY Supp lement 05/20/25 Unknown History methotrexate sodium 5 mg tablet 20 mg feeding tube QWE EK Arthritis 05/20/25 Unknown History (Trexall) metoprolol tartrate 25 mg tablet 25 mg feeding tube BI D BP 05/20/25 06/17/25 History omeprazole 40 mg capsule,delayed 40 mg PO DAILY GERD 0 05/20/25 Unknown History release ondansetron HCl 4 mg tablet 4 mg feeding tube Q8H PRN nausea 05/20/25 Unknown History and vomiting oxycodone 5 mg tablet 5 mg feeding tube Q4H PRN pa in 05/20/25 Unknown History (scale score 7-10) pantoprazole 40 mg tablet,delayed 40 mg PO DAILY GERD 05/20/25 Unknown History release polyethylene glycol 3350 17 17 g feeding tube DAILY Unknown History gram/dose oral powder (Miralax) Constipation pravastatin 40 mg tablet 40 mg feeding tube QHS Vivian sterol 05/20/25 Unknown History sennosides 8.6 mg tablet (Senokot) 8.6 mg PO QHS Const ipation 05/20/25 Unknown History vitamins A,C,K-etec-twdpln 4,296 1 cap PO DAILY Eye Vi tamin 05/20/25 Unknown History mcg-226 mg-90 mg capsule (Healthy Eyes SuperVision) doxazosin 4 mg tablet (Cardura) 4 mg PO QHS 05/25/25 0 06/16/25 History lactose-reduced food-fiber 0.07 See Rx Instructions fe eding tube 05/25/25 Unknown History gram-1.5 kcal/mL liquid for tube .COMPLEX feed (Isosource 1.5 Randy) menthol 0.44 %-zinc oxide 20.6 % 1 applic topical BID 05/25/25 Unknown History topical ointment (CalaSoothe) Allergy/AdvReac Type Severity Reaction Status Date / Time No Known Allergies Allergy Verified 06/17/25 14:33 Family History Mother Hypertension Hyperlipidemia, unspecified Osteoarthritis Hearing loss Vision loss Father Heart disease Pneumonia CVA (cerebral vascular accident) Hearing loss Suicide attempt Surgical History History of wisdom tooth extraction History of vasectomy History of tonsillectomy and adenoidectomy History of total hip arthroplasty History of shoulder surgery History of hernia repair History of colonoscopy History of circumcision History of cataract surgery History of cardiac catheterization Social History household members: spouse Smoking Status: Former smoker alcohol intake: never substance use type: does not use Review of Systems (Anesthesia) ROS Narrative System reviewed and no additional complaints, except as documented. 06/17/25 1456 <Electronically signed by Carlos Baptiste> Date _ Carlos Yang MD Cosigner Signature: Date CC: ~ Signed [facility] Work Phone: [phone]) 883-452408-27-2025 Procedure note [facility] Medical Records Department [address] [place] [id number] EGD Report MR#: [id number] Acct: [id number] Name: FAWN CAMERON Rep #:[id number] : 1935 89 From: Stan Ferrara DO PCP: Dr. Devan Barrera MD Status:[facility] Patient Name: Fawn Cameron Procedure Date: 06/17/2025 3:54 PM Date of : 1935 Age: 89 Procedure: Upper GI endoscopy Indications: Dysphagia Providers: Stan Ferrara DO Medicines: Monitored Anesthesia Care Patient Profile: This is an 89 year old male. Refer to note in patient chart for documentation of history and physical. Patient has symptoms of dysphagia with both liquids and solids. Complications: No immediate complications. Procedure: Pre-Anesthesia Assessment: - Prior to the procedure, a History and Physical was performed, and patient medications and allergies were reviewed. The patient is competent. The risks and benefits of the procedure and the sedation options and risks were discussed with the patient. All questions were answered and informed consent was obtained. Patient identification and proposed procedure were verified by the physician in the pre-procedure area. Mental Status Examination: alert and oriented. Airway Examination: normal oropharyngeal airway and neck mobility. Respiratory Examination: clear to auscultation. CV Examination: normal. Prophylactic Antibiotics: The patient does not require prophylactic antibiotics. Prior Anticoagulants: The patient has taken no anticoagulant or antiplatelet agents except for NSAID medication. ASA Grade Assessment: II - A patient with mild systemic disease. After reviewing the risks and benefits, the patient was deemed in satisfactory condition to undergo the procedure. The anesthesia plan was to use monitored anesthesia care (MAC). Immediately prior to administration of medications, the patient was re-assessed for adequacy to receive sedatives. The heart rate, respiratory rate, oxygen saturations, blood pressure, adequacy of pulmonary ventilation, and response to care were monitored throughout the procedure. The physical status of the patient was re-assessed after the procedure. After obtaining informed consent, the endoscope was passed under direct vision. Throughout the procedure, the patient's blood pressure, pulse, and oxygen saturations were monitored continuously. The Endoscope was introduced through the mouth, and advanced to the second part of duodenum. The upper GI endoscopy was accomplished without difficulty. The patient tolerated the procedure well. Scope In: 4:07:36 PM Scope Out: 4:18:21 PM Total Procedure Duration Time 0 hours 10 minutes 45 seconds Findings: Abnormal motility was noted at the cricopharyngeus and in the upper third of the esophagus. The cricopharyngeus was abnormal. There is a decrease in motility of the esophageal body. The distal esophagus/lower esophageal sphincter is spastic, but gives up passage to the endoscope. Secondary peristaltic waves are noted. A guidewire was placed and the scope was withdrawn. Dilation was performed with a Savary dilator with no resistance at 60 Fr. Area was successfully injected with 70 units botulinum toxin. There was evidence of an intact gastrostomy with a patent G-tube present in the gastric body. No gross lesions were noted in the entire examined duodenum. Impression: - Abnormal esophageal motility, established achalasia. Dilated. Injected with botulinum toxin. - Intact gastrostomy with a patent G-tube present. - No gross lesions in the entire examined duodenum. - No specimens collected. Recommendation: - Discharge patient to a residential. - Resume previous diet. - Continue present medications. Procedure Code(s): --- Professional --- 70785, Esophagogastroduodenoscopy, flexible, transoral; with insertion of guide wire followed by passage of dilator(s) through esophagus over guide wire 57952, 59,51, Esophagogastroduodenoscopy, flexible, transoral; with directed submucosal injection(s), any substance CPT copyright 2021 [employer]. All rights reserved. The codes documented in this report are preliminary and upon death surveys coder review may be revised to meet current compliance requirements. Stan Ferrara DO 06/17/2025 4:50:01 PM This report has been signed electronically. Number of Addenda: 0 Note Initiated On: 06/17/2025 3:54 PM 06/17/25 1650 Date _ Stan Ferrara DO Cosigner Signature: Date (if indicated) CC: Dr. Devan Barrera MD; Stan Ferrara DO ~ Date Dictated: 06/17/25 1554 Date Transcribed: Game Designer: RF Signed [facility]08-27-2025 Procedure note [facility] Medical Records Department [address] [place] [id number] Provation Physician Letter MR#: [id number] Acct: [id number] Name: FAWN CAMERON Rep #:[id number] : 1935 89 From: Stan Ferrara DO PCP: Dr. Devan Barrera MD Status[place]17[place]25 Devan Barrera Re : Upper GI endoscopy procedure for Fawn Cameron Dear Yuri This procedure was performed on Sunday, June 17, 2025. My impressions and recommendations are as follows: Impressions : - Abnormal esophageal motility, established achalasia. Dilated. Injected with botulinum toxin. - Intact gastrostomy with a patent G-tube present. - No gross lesions in the entire examined duodenum. - No specimens collected. Recommendations : - Discharge patient to a residential. - Resume previous diet. - Continue present medications. My findings are described in the full procedure note, which is enclosed. If I can be of further assistance, please feel free to contact me at . Sincerely, Stan Ferrara DO 06/17/2025 4:50:01 PM This report has been signed electronically. 06/17/25 1650 Date _ Stan Josias Cosigner Signature: Date (if indicated) CC: Dr. Devan Barrera MD; Stan Ferrara DO ~ Date Dictated: 06/17/25 1554 Date Transcribed: Game Designer: RF Signed [facility]08-27-2025 Consult note [facility] Medical Records Department [address] [place] [address] Anesthesia Postop Eval I 06/17/251635 MR#: [id number] Acct: [id number] Name: FAWN CAMERON Rep #:[id number] : 1935 89 From: Karri CANDELARIA PCP: Dr. Devan Barrera MD Status:[facility] Y Race: C Location: [place] [address] Anesthesia: Postop Eval I Current Vital Signs Temperature: 98.1 F Pulse Rate: 79 Blood Pressure: 110/65 Respiratory Rate: 16 Pulse Ox: 95 Assessment Airway patent: Yes Spontaneous unlabored respirations: Yes nausea: No Vomiting: No Anesthesia Complication: No Fluid Hydration Crystalloid volume administer (ml): 500 Total IV fluid infused: 500 Progress Note Anesthesia document: Postop Eval 1 completed: Yes 06/17/25 163 HIDE BUYER> Date _ Karri Andrews Signature: Date CC: ~ Signed [facility]08-27-2025 History and physical note [facility] Medical Records Department [address] [place] [address] History & Physical Exam 06/17/25 1549 MR#: [id number] Acct: [id number] Name: FAWN CAMERON Rep #:[id number] : 1935 89 From: Stan Friend PCP: Dr. Devan Barrera MD Status:[facility] Location: [place] [address] HPI - General General Date of Admission: 06/17/25 Date of Service: 06/17/25 HPI Narrative FAWN CAMERON, is a 89 M who presentsReason for Consultation: Ongoing dysphagia and abnormal swallowing study HPI Narrative: 89 year old male with below past medical history hospitalized for SDH, SAH, multiple traumatic fractures, complicated by dysphagia requiring dobbhoff TF, admitted to TCU with debility. I was consulted to see him due to his inability to swallow safely and need for placement of PEG tube. A PEG tube was placed. He recently underwent a repeat video swallow and was discovered to have problemsat the level of the upper esophageal sphincter in decreased clearance of liquidsonce and into the esophagus. He has been having problems with dysphagia, coughing, and a wet, gurgly vocal quality following meals * Video Swallow Study (VFSS):?Shows poor upper esophageal sphincter (UES) opening during swallowing. * Oral Phase:?Noted to be intact and within functional limits. * Pharyngeal Phase: * Initiation of swallow is delayed, with bolus pooling in the pharyngeal and pyriform sinuses. * Hyolaryngeal excursion (upward and forward movement) is reduced, contributing to the poor UES opening. * Following the swallow, significant residue is observed in the pharyngeal area. * Airway Protection:?Penetration and trace aspiration are observed with thin liquids due to UES dysfunction and residual pooling. * Esophageal Phase:?The limited view of the esophageal phase shows possible poor motility, but a full evaluation is warranted. [facility] Medical History Former smoker Wears hearing aid Easy bruising Cardiology follow-up encounter Dysphagia Hyperlipidemia Depression BPH (benign prostatic hyperplasia) TIA (transient ischemic attack) Coronary artery disease Carotid artery stenosis Osteoarthritis Essential (primary) hypertension GERD (gastroesophageal reflux disease) Sacral fracture Bilateral pubic rami fractures SAH (subarachnoid hemorrhage) SDH (subdural hematoma) Orbital roof fracture Orbital floor fracture Debility Home Medications ?Medication ?Instructions ?Recorded ?Last Taken ?Type acetaminophen 325 mg capsule 650 mg feeding tube Q6H P ain 05/20/25 06/17/25 History alfuzosin 10 mg tablet,extended 10 mg PO DAILY BPH Unknown History release 24 hr amitriptyline 10 mg tablet 10 mg feeding tube QHS Mood 05/20/25 Unknown History amlodipine 5 mg tablet 5 mg feeding tube DAILY BP 0 05/20/25 06/17/25 History aspirin 81 mg tablet 81 mg PO DAILY Heart 5 Unknown History benazepril 40 mg tablet 40 mg feeding tube DAILY BP 05/20/25 06/16/25 History bisacodyl 5 mg tablet 5 mg PO DAILY PRN constipati on 05/20/25 Unknown History cholecalciferol (vitamin D3) 125 125 mcg feeding tube DAILY 05/20/25 05/20/25 10:20 History mcg (5,000 unit) tablet Supplement cyanocobalamin (vitamin B-12) 1,000 mcg PO DAILY Suppl ement 05/20/25 05/20/25 10:25 History 1,000 mcg capsule escitalopram oxalate 5 mg tablet 5 mg feeding tube SID LY Mood 05/20/25 06/17/25 History folic acid 1 mg tablet 2 mg feeding tube DAILY Supp lement 05/20/25 Unknown History methotrexate sodium 5 mg tablet 20 mg feeding tube QWE EK Arthritis 05/20/25 Unknown History (Trexall) metoprolol tartrate 25 mg tablet 25 mg feeding tube BI D BP 05/20/25 06/17/25 History omeprazole 40 mg capsule,delayed 40 mg PO DAILY GERD 0 05/20/25 Unknown History release ondansetron HCl 4 mg tablet 4 mg feeding tube Q8H PRN nausea 05/20/25 Unknown History and vomiting oxycodone 5 mg tablet 5 mg feeding tube Q4H PRN pa in 05/20/25 Unknown History (scale score 7-10) pantoprazole 40 mg tablet,delayed 40 mg PO DAILY GERD 05/20/25 Unknown History release polyethylene glycol 3350 17 17 g feeding tube DAILY Unknown History gram/dose oral powder (Miralax) Constipation pravastatin 40 mg tablet 40 mg feeding tube QHS Vivian sterol 05/20/25 Unknown History sennosides 8.6 mg tablet (Senokot) 8.6 mg PO QHS Const ipation 05/20/25 Unknown History vitamins A,C,G-vmhg-acaimr 4,296 1 cap PO DAILY Eye Vi tamin 05/20/25 Unknown History mcg-226 mg-90 mg capsule (Healthy Eyes SuperVision) doxazosin 4 mg tablet (Cardura) 4 mg PO QHS 05/25/25 0 06/16/25 History lactose-reduced food-fiber 0.07 See Rx Instructions fe eding tube 05/25/25 Unknown History gram-1.5 kcal/mL liquid for tube .COMPLEX feed (Isosource 1.5 Randy) menthol 0.44 %-zinc oxide 20.6 % 1 applic topical BID 05/25/25 Unknown History topical ointment (CalaSoothe) Allergy/AdvReac Type Severity Reaction Status Date / Time No Known Allergies Allergy Verified 06/17/25 14:33 Family History Mother Hypertension Hyperlipidemia, unspecified Osteoarthritis Hearing loss Vision loss Father Heart disease Pneumonia CVA (cerebral vascular accident) Hearing loss Suicide attempt Surgical History History of wisdom tooth extraction History of vasectomy History of tonsillectomy and adenoidectomy History of total hip arthroplasty History of shoulder surgery History of hernia repair History of colonoscopy History of circumcision History of cataract surgery History of cardiac catheterization Social History household members: spouse Smoking Status: Former smoker alcohol intake: never substance use type: does not use ROS Constitutional Constitutional: Denies fatigue, fever(s), poor appetite, weight gain or weight loss Gastrointestinal Gastrointestinal: Denies belching, bloating, change in bowel habits, change in stool character, chewing difficulty, coffee ground emesis, constipation, cramping, diarrhea, dyspepsia, dysphagia, earlysatiety, excessive flatus, fecalincontinence, heartburn, hematemesis, hematochezia, hemorrhoids, loose stools, melena, nausea, odynophagia, rectal bleeding, tenesmus, vomiting or weight changes Vital Signs Vital Signs Vital Signs: 06/17/25 14:38 06/17/25 14:38 06/17/25 14:56 Temperature 97.9 F 97.9 F Temperature Source Temporal Pulse Rate 69 69 Respiratory Rate 16 16 Respiratory Pattern Normal Blood Pressure 122/53 H 122/53 H Blood Pressure Mean 76 Blood Pressure Source Monitor Blood Pressure Position Semi-Fowlers Blood Pressure Location Left Arm Pulse Ox 94 94 Oxygen Delivery Method Room Air Room Air Weight Weight: 149 lb 11.102 oz Body Mass Index (BMI) 24.1 Physical Exam Const alert, oriented x3, no apparent distress and healthy appearing General Appearance: cooperative GI normal to inspection, nondistended, normoactive bowel sounds, soft to palpation,non-tender and non-distended Percussion: normal to percussion Rectal Exam: deferred Assessment & Plan Assessment/Plan (1) Dysphagia: PLAN: The 89-year-old male is diagnosed with oropharyngeal dysphagia, specifically related to poor UES opening likely due to subarachnoid hemorrhage and subdural hematoma. He has reduced hyolaryngealexcursion, which is a commonage-related change, is a primary biomechanical cause. His advanced age a lso places him at a higher risk for silent aspiration, a severe complication of dysphagia where aspiration occurs without a cough or other sign of distress. The patient will be managed very well with a combination of compensatory strategies, strengthening exercises, and nutritional support. He may need esophageal manometry or repeat endoscopy to rule outother esophageal issues such as achalasia, strictures, or diverticulum. So the plan will be for himto have repeat upper endoscopy on 06/17/2025. Please hold his tube feedings at midnight on 06/16/2025. 06/17/25 1550 Cosigner Signature (if applicable): CC: Dr. Devan Barrera MD; Stan Friend, DO~ Signed [facility]08-27-2025 [facility] Medical Records Department [address] [place] [address] History Physical Exam 06/17/25 1549 MR#: [id number] Acct: [id number] Name: FAWN CAMERON Rep #: [id number] : 1935 89 From: Stan Ferrara DO PCP: Dr. Devan Barrera MD Status:[facility] Location: [place] [address] HPI - General General Date of Admission: 06/17/25 Date of Service: 06/17/25 HPI Narrative FAWN CAMERON, is a 89 M who presentsReason for Consultation: Ongoing dysphagia and abnormal swallowing study HPI Narrative: 89 year old male with below past medical history hospitalized for SDH, SAH, multiple traumatic fractures, complicated by dysphagia requiring dobbhoff TF, admitted to TCU with debility. I was consulted to see him due to his inability to swallow safely and need for placement of PEG tube. A PEG tube was placed. He recently underwent a repeat video swallow and was discovered to have problems at the level of the upper esophageal sphincter in decreased clearance of liquids once and into the esophagus. He has been having problems with dysphagia, coughing, and a wet, gurgly vocal quality following meals * Video Swallow Study (VFSS):???Shows poor upper esophageal sphincter (UES) opening during swallowing. * Oral Phase:???Noted to be intact and within functional limits. * Pharyngeal Phase: * Initiation of swallow is delayed, with bolus pooling in the pharyngeal and pyriform sinuses. * Hyolaryngeal excursion (upward and forward movement) is reduced, contributing to the poor UES opening. * Following the swallow, significant residue is observed in the pharyngeal area. * Airway Protection:???Penetration and trace aspiration are observed with thin liquids due to UES dysfunction and residual pooling. * Esophageal Phase:???The limited view of the esophageal phase shows possible poor motility, but a full evaluation is warranted. [facility] Medical History Former smoker Wears hearing aid Easy bruising Cardiology follow-up encounter Dysphagia Hyperlipidemia Depression BPH (benign prostatic hyperplasia) TIA (transient ischemic attack) Coronary artery disease Carotid artery stenosis Osteoarthritis Essential (primary) hypertension GERD (gastroesophageal reflux disease) Sacral fracture Bilateral pubic rami fractures SAH (subarachnoid hemorrhage) SDH (subdural hematoma) Orbital roof fracture Orbital floor fracture Debility Home Medications ???Medication ???Instructions ???Recorded ???Last Taken ???Type acetaminophen 325 mg capsule 650 mg feeding tube Q6H Pain 05/2006/17/25 History alfuzosin 10 mg tablet,extended 10 mg PO DAILY BPH 05/20/25 Unknow n History release 24 hr amitriptyline 10 mg tablet 10 mg feeding tube QHS Mood Unknown History amlodipine 5 mg tablet 5 mg feeding tube DAILY BP 5 06/17/25 History aspirin 81 mg tablet 81 mg PO DAILY Heart 05/20/25 Unkn own History benazepril 40 mg tablet 40 mg feeding tube DAILY BP 06/16/25 History bisacodyl 5 mg tablet 5 mg PO DAILY PRN constipation Unknown History cholecalciferol (vitamin D3) 125 125 mcg feeding tube DAILY 5 05/20/25 10:20 History mcg (5,000 unit) tablet Supplement cyanocobalamin (vitamin B-12) 1,000 mcg PO DAILY Supplement 04/2305/20/25 10:25 History 1,000 mcg capsule escitalopram oxalate 5 mg tablet 5 mg feeding tube DAILY Mood 05/2006/17/25 History folic acid 1 mg tablet 2 mg feeding tube DAILY Supplement 05/20/25 Unknown History methotrexate sodium 5 mg tablet 20 mg feeding tube QWEEK Arthritis 05/20/25 Unknown History (Trexall) metoprolol tartrate 25 mg tablet 25 mg feeding tube BID BP 05/20/25 06/17/25 History omeprazole 40 mg capsule,delayed 40 mg [...] PO QHS Constipation 05/20 Unknown History vitamins A,C,U-iaud-skhjdr 4,296 1 cap PO DAILY Eye Vitamin 5 Unknown History mcg-226 mg-90 mg capsule (Healthy Eyes SuperVision) doxazosin 4 mg tablet (Cardura) 4 mg PO QHS 05/25/25 06/16/25 Hist ory lactose-reduced food-fiber 0.07 See Rx Instructions feeding tube 0 05/25/25 Unknown History gram-1.5 kcal/mL liquid for tube (more content not included)...[facility]08-27-2025 Consult note [facility] Medical Records Department [address] [facility] [place] [address] Pre-Anesthesia Evaluation 06/17/25 1456 MR#: [id number] Acct: [id number] Name: FAWN CAMERON Rep #:[id number] : 1935 89 From: Carlos Yang MD PCP: Dr. Devan Barrera MD Status:RE G SDC Y Race: C Location: [place] [address] ASA Classification* ASA Classification ASA Classification: 3 Assessment & Plan Anesthesia* Anesthesia Assessment Anesthesia Assessment: Discussed sedation and/or anesthesia options, risks, benefits, and alternatives with patient/parents/legal guardian/POA. Questions invited. The patient/parents/legal guardian/POA seems to understand and agrees to proceedwith anesthesia plan. Reviewed the physical assessment, medical history, allergy history and patient home medications list prior to surgery/procedure/anesthetic and documented any changes. Performed airway and anesthesia risk assessments. Anesthesia Type Anesthesia Type: MAC History Source History Obtained from:: Patient and Chart Anesthesia Focused Assessment* Temperature: 97.9 F Pulse Rate: 69 Blood Pressure: 122/53 Respiratory Rate: 16 Pulse Ox: 94 Oxygen Delivery Method: Room Air Airway Assessment Mouth opens: >3 cm Mallampati Score: III Teeth Condition: Chipped/Broken Neck Range of motion (ROM): Full ROM Labs Anesthesia Preop lab: CBC WBC 6.3 K/mm3 (4.4-11.0) 06/17/25 05:25 06/17/25 RBC 3.16 M/mm3 (4.6-6.2) L 06/17/25 05:25 06/17/25 Hgb 10.4 g/dL (13.0-16.5) L 06/17/25 05: 5 Hct 31.2 % (40-54) L 06/17/25 05:25 06/17/25 Plt Count 285 K/mm3 (150-450) 06/17/25 05:25 06/17/25 CHEMISTRY Potassium 5.0 mmol/L (3.3-5.1) 06/17/25 05:06/17/25 Sodium 131 mmol/L (133-145) L 06/17/25 05:25 06/17/25 BUN 20 mg/dL (4-19) H 06/17/25 05:25 06/17/25 Creatinine 0.64 mg/dL (0.70-1.20) L 06/17/25 05:25 Glucose 96 mg/dL (70-99) 06/17/25 05:25 06/17/25 POC Glucose 94 mg/dL (74-106) 06/15/25 05:50 06/15/25 COAG PT 13.8 SECONDS (11.7-14.9) 06/17/25 05:25 Pre-Assessment Diagnosis/Proposed Procedure Planned Operative Procedure(s): EGD Anesthesia History Anesthesia History - thermostat maker: Anesthesia History - thermostat maker Hx Hospitalization Yes: TCU 06/16/25 15:44 Any Problems With Anesthesia No 06/16/25 15:44 Cholinesterase deficiency No 06/16/25 15:44 You/Your Family Experience No 06/16/25 15:44 fever (hyperthermia) with Relationship Recent Exposure to Contagious No 06/17/25 14:38 Disease Does patient have nerve No 06/16/25 15:44 stimulator Patient instructed to have device shut off --Does patient have Pacemaker or ICD? When Was Last Pacemaker Check QUESTION #4 FULL TEXT: You/Your Family Experience fever (hyperthermia) with Anesthesia Last Oral Intake Last Oral intake: Last Oral Intake NPO since 00:00 06/17/25 14:38 Meds taken in AM with sips of Yes 06/17/25 14:38 water? Meds patient instructed to take am of surgery PONV PONV - thermostat maker: PONV - thermostat maker Female No 06/16/25 15:44 HX of Motion Sickness No 06/16/25 15:44 HX of N/V After Surgery No 06/16/25 15:44 Non-Smoker Yes 06/16/25 15:44 Duration of Surgery greater No 06/16/25 15:44 than 60 minutes Number of Risk Factors 1 06/16/25 15:44 PONV Score Low Risk 06/16/25 15:44 Height & Weight Height & Weight: Anesthesia: Height & Weight Height 5 ft 6 in 06/17/25 14:38 Weight: 67.9 kg 06/17/25 14:38 Body Mass Index (BMI) 24.1 06/17/25 14:38 Respiratory Assessment Respiratory Assessment - thermostat maker: Respiratory Tract Infection Hx - thermostat maker Hx Respiratory Tract Infection No 06/16/25 15:44 STOP Sleep Apnea STOP Sleep Apnea - thermostat maker: STOP Sleep Apnea - thermostat maker Hx Hypertension Yes 06/16/25 15:44 Hx Sleep Apnea Yes 06/16/25 15:44 CPAP No 06/16/25 15:44 BIPAP No 06/16/25 15:44 Do you snore loudly (louder than talking or can be heard Do you often feel tired/ fatigued/ sleepy during daytime? Has anyone observed you stop breathing during sleep? STOP Results Positive 06/16/25 15:44 QUESTION #5 FULL TEXT : Do you snore loudly (louder than talking or can be heard through closeddoors)? Tobacco Use History Tobacco Use History - thermostat maker: Tobacco Use History - thermostat maker Tobacco Use Smoking Status Former smoker 06/16/25 15:44 Hx Tobacco Use No 06/16/25 15:44 Years Smoking Packs Smoked per Day Smoking Cessation Date was No - quit smoking greater 06/16/25 15:44 within the last 15 years than 15 years ago Hx Smoking Cessation Date Hx Smoking Cessation No 06/16/25 15:44 Counseling Hematologic Medial History Hematologic Hx - thermostat maker: Hematologic Medical Hx - protocol manager Hx of Blood Transfusion No 06/16/25 15:44 Hx of Transfusion in last 3 No 06/16/25 15:44 Months Date of Last Transfusion (if within last 3 months) Ever experience any problems No 06/16/25 15:44 with transfusion(s)? Specify any problems Hx of Preganancy in last 3 N/A 06/16/25 15:44 Months Nurse Filling Out Transfusion [id number] 06/16/25 15:44 & Questions: Date: 06/16/25 06/16/25 15:44 Time: 15:48 06/16/25 15:44 Patient unable to answer at this time (ie. confused, unrespo /Reproduction History /Reproductive History - thermostat maker: /Reproductive Hx- thermostat maker Hx Now Gestational Age (in weeks): EDC: Hx Hx Para Hx Section SAB Active Medications Active Medications: Current Medications Generic Name Dose Route Start Last Admin Trade Name Freq PRN Reason Stop Dose Admin Lactated Ringer's 1,000 mls @ 15 mls/hr 06/17/25 14:30 06/17/25 14:43 IV 15 mls/hr .Q48H SILVANO Administration PFSH Medical History Former smoker Wears hearing aid Easy bruising Cardiology follow-up encounter Dysphagia Hyperlipidemia Depression BPH (benign prostatic hyperplasia) TIA (transient ischemic attack) Coronary artery disease Carotid artery stenosis Osteoarthritis Essential (primary) hypertension GERD (gastroesophageal reflux disease) Sacral fracture Bilateral pubic rami fractures SAH (subarachnoid hemorrhage) SDH (subdural hematoma) Orbital roof fracture Orbital floor fracture Debility Home Medications ?Medication ?Instructions ?Recorded ?Last Taken ?Type acetaminophen 325 mg capsule 650 mg feeding tube Q6H P ain 05/20/25 06/17/25 History alfuzosin 10 mg tablet,extended 10 mg PO DAILY BPH Unknown History release 24 hr amitriptyline 10 mg tablet 10 mg feeding tube QHS Mood 05/20/25 Unknown History amlodipine 5 mg tablet 5 mg feeding tube DAILY BP 0 05/20/25 06/17/25 History aspirin 81 mg tablet 81 mg PO DAILY Heart 5 Unknown History benazepril 40 mg tablet 40 mg feeding tube DAILY BP 05/20/25 06/16/25 History bisacodyl 5 mg tablet 5 mg PO DAILY PRN constipati on 05/20/25 Unknown History cholecalciferol (vitamin D3) 125 125 mcg feeding tube DAILY 05/20/25 05/20/25 10:20 History mcg (5,000 unit) tablet Supplement cyanocobalamin (vitamin B-12) 1,000 mcg PO DAILY Suppl ement 05/20/25 05/20/25 10:25 History 1,000 mcg capsule escitalopram oxalate 5 mg tablet 5 mg feeding tube SID LY Mood 05/20/25 06/17/25 History folic acid 1 mg tablet 2 mg feeding tube DAILY Supp lement 05/20/25 Unknown History methotrexate sodium 5 mg tablet 20 mg feeding tube QWE EK Arthritis 05/20/25 Unknown History (Trexall) metoprolol tartrate 25 mg tablet 25 mg feeding tube BI D BP 05/20/25 06/17/25 History omeprazole 40 mg capsule,delayed 40 mg PO DAILY GERD 0 05/20/25 Unknown History release ondansetron HCl 4 mg tablet 4 mg feeding tube Q8H PRN nausea 05/20/25 Unknown History and vomiting oxycodone 5 mg tablet 5 mg feeding tube Q4H PRN pa in 05/20/25 Unknown History (scale score 7-10) pantoprazole 40 mg tablet,delayed 40 mg PO DAILY GERD 05/20/25 Unknown History release polyethylene glycol 3350 17 17 g feeding tube DAILY Unknown History gram/dose oral powder (Miralax) Constipation pravastatin 40 mg tablet 40 mg feeding tube QHS Vivian sterol 05/20/25 Unknown History sennosides 8.6 mg tablet (Senokot) 8.6 mg PO QHS Const ipation 05/20/25 Unknown History vitamins A,C,Y-nvon-fiwwoj 4,296 1 cap PO DAILY Eye Vi tamin 05/20/25 Unknown History mcg-226 mg-90 mg capsule (Healthy Eyes SuperVision) doxazosin 4 mg tablet (Cardura) 4 mg PO QHS 05/25/25 0 06/16/25 History lactose-reduced food-fiber 0.07 See Rx Instructions fe eding tube 05/25/25 Unknown History gram-1.5 kcal/mL liquid for tube .COMPLEX feed (Isosource 1.5 Randy) menthol 0.44 %-zinc oxide 20.6 % 1 applic topical BID 05/25/25 Unknown History topical ointment (CalaSoothe) Allergy/AdvReac Type Severity Reaction Status Date / Time No Known Allergies Allergy Verified 06/17/25 14:33 Family History Mother Hypertension Hyperlipidemia, unspecified Osteoarthritis Hearing loss Vision loss Father Heart disease Pneumonia CVA (cerebral vascular accident) Hearing loss Suicide attempt Surgical History History of wisdom tooth extraction History of vasectomy History of tonsillectomy and adenoidectomy History of total hip arthroplasty History of shoulder surgery History of hernia repair History of colonoscopy History of circumcision History of cataract surgery History of cardiac catheterization Social History household members: spouse Smoking Status: Former smoker alcohol intake: never substance use type: does not use Review of Systems (Anesthesia) ROS Narrative System reviewed and no additional complaints, except as documented. 06/17/25 1456 D> Date _ Carlos Andrews Signature: Date CC: ~ Signed [facility]08-25-2025 Consult note Author Stan Ferrara [facility] Note Date/Time June 15, 2025 6: 13pm [facility] Medical Records Department [address] [place] [address] Consultation - GI 06/15/25 1807 MR#: [id number] Acct: [id number] Name: FAWN CAMERON Rep #:[id number] : 1935 89 From: Stan Ferrara DO PCP: Dr. Devan Barrera MD Status:AD M IN Location: [place] [address] HPI Consult Data Date of Consult: 06/15/25 HPI Narrative Reason for Consultation: Ongoing dysphagia and abnormal swallowing study HPI Narrative: 89 year old male with below past medical history hospitalized for SDH, SAH, multiple traumatic fractures, complicated by dysphagia requiring dobbhoff TF, admitted to TCU with debility. I was consulted to see him due to his inability to swallow safely and need for placement of PEG tube. A PEG tube was placed. He recently underwent a repeat video swallow and was discovered to have problemsat the level of the upper esophageal sphincter in decreased clearance of liquidsonce and into the esophagus. He has been having problems with dysphagia, coughing, and a wet, gurgly vocal quality following meals * Video Swallow Study (VFSS):?Shows poor upper esophageal sphincter (UES) opening during swallowing. * Oral Phase:?Noted to be intact and within functional limits. * Pharyngeal Phase: * Initiation of swallow is delayed, with bolus pooling in the pharyngeal and pyriform sinuses. * Hyolaryngeal excursion (upward and forward movement) is reduced, contributing to the poor UES opening. * Following the swallow, significant residue is observed in the pharyngeal area. * Airway Protection:?Penetration and trace aspiration are observed with thin liquids due to UES dysfunction and residual pooling. * Esophageal Phase:?The limited view of the esophageal phase shows possible poor motility, but a full evaluation is warranted. [facility] Medical History Dysphagia Hyperlipidemia Depression BPH (benign prostatic hyperplasia) TIA (transient ischemic attack) Coronary artery disease Carotid artery stenosis Osteoarthritis Essential (primary) hypertension GERD (gastroesophageal reflux disease) Sacral fracture Bilateral pubic rami fractures SAH (subarachnoid hemorrhage) SDH (subdural hematoma) Orbital roof fracture Orbital floor fracture Debility Home Medications ?Medication ?Instructions ?Recorded ?Last Taken ?Type acetaminophen 325 mg capsule 650 mg feeding tube Q6H P ain 05/20/25 05/20/25 10:20 History alfuzosin 10 mg tablet,extended 10 mg PO DAILY BPH Unknown History release 24 hr amitriptyline 10 mg tablet 10 mg feeding tube QHS Mood 05/20/25 Unknown History amlodipine 5 mg tablet 5 mg feeding tube DAILY BP 0 05/20/25 Unknown History aspirin 81 mg tablet 81 mg PO DAILY Heart 5 Unknown History benazepril 40 mg tablet 40 mg feeding tube DAILY BP 05/20/25 Unknown History bisacodyl 5 mg tablet 5 mg PO DAILY PRN constipati on 05/20/25 Unknown History cholecalciferol (vitamin D3) 125 125 mcg feeding tube DAILY 05/20/25 05/20/25 10:20 History mcg (5,000 unit) tablet Supplement cyanocobalamin (vitamin B-12) 1,000 mcg PO DAILY Suppl ement 05/20/25 05/20/25 10:25 History 1,000 mcg capsule enoxaparin 30 mg/0.3 mL 30 mg subcut Q12H DVT prophy laxis 05/20/25 05/20/25 12:30 History subcutaneous syringe escitalopram oxalate 5 mg tablet 5 mg feeding tube SID LY Mood 05/20/25 Unknown History folic acid 1 mg tablet 2 mg feeding tube DAILY Supp lement 05/20/25 Unknown History methotrexate sodium 5 mg tablet 20 mg feeding tube QWE EK Arthritis 05/20/25 Unknown History (Trexall) metoprolol tartrate 25 mg tablet 25 mg feeding tube BI D BP 05/20/25 Unknown History omeprazole 40 mg capsule,delayed 40 mg PO DAILY GERD 0 05/20/25 Unknown History release ondansetron HCl 4 mg tablet 4 mg feeding tube Q8H PRN nausea 05/20/25 Unknown History and vomiting oxycodone 5 mg tablet 5 mg feeding tube Q4H PRN pa in 05/20/25 Unknown History (scale score 7-10) pantoprazole 40 mg tablet,delayed 40 mg PO DAILY GERD 05/20/25 Unknown History release polyethylene glycol 3350 17 17 g feeding tube DAILY Unknown History gram/dose oral powder (Miralax) Constipation pravastatin 40 mg tablet 40 mg feeding tube QHS Vivian sterol 05/20/25 Unknown History sennosides 8.6 mg tablet (Senokot) 8.6 mg PO QHS Const ipation 05/20/25 Unknown History vitamins A,C,B-abwv-mizrhi 4,296 1 cap PO DAILY Eye Vi tamin 05/20/25 Unknown History mcg-226 mg-90 mg capsule (Healthy Eyes SuperVision) doxazosin 4 mg tablet (Cardura) 4 mg PO QHS 05/25/25 U nknown History lactose-reduced food-fiber 0.07 See Rx Instructions fe eding tube 05/25/25 Unknown History gram-1.5 kcal/mL liquid for tube .COMPLEX feed (Isosource 1.5 Randy) menthol 0.44 %-zinc oxide 20.6 % 1 applic topical BID 05/25/25 Unknown History topical ointment (CalaSoothe) Allergy/AdvReac Type Severity Reaction Status Date / Time No Known Allergies Allergy Verified 05/20/25 19:39 Family History Mother Hypertension Hyperlipidemia, unspecified Osteoarthritis Hearing loss Vision loss Father Heart disease Pneumonia CVA (cerebral vascular accident) Hearing loss Suicide attempt Surgical History History of wisdom tooth extraction History of vasectomy History of tonsillectomy and adenoidectomy History of total hip arthroplasty History of shoulder surgery History of hernia repair History of colonoscopy History of circumcision History of cataract surgery History of cardiac catheterization Social History household members: spouse Smoking Status: Former smoker alcohol intake: never substance use type: does not use ROS Constitutional Constitutional: Denies fatigue, fever(s), poor appetite, weight gain or weight loss Gastrointestinal Gastrointestinal: Denies belching, bloating, change in bowel habits, change in stool character, chewing difficulty, coffee ground emesis, constipation, cramping, diarrhea, dyspepsia, dysphagia, early satiety, excessive flatus, fecalincontinence, heartburn, hematemesis, hematochezia, hemorrhoids, loose stools, melena, nausea, odynophagia, rectal bleeding, tenesmus, vomiting or weight changes Physical Exam Const alert, oriented x3, no apparent distress and healthy appearing General Appearance: cooperative GI normal to inspection, nondistended, normoactive bowel sounds, soft to palpation,non-tender and non-distended Percussion: normal to percussion Rectal Exam: deferred Medical Records Data Medical Nutrition Assessment Dietitian: Malnutrition Criteria Met Start: 05/21/25 14:30 Freq: Status: Active Protocol: Document 06/03/25 09:58 PER (Rec: 06/03/25 09:59 PER [id number]) Nutrition Malnutrition Evidence of Yes Malnutrition Exists Malnutrition (severe Acute Illness/Injury ): Evidenced By Suboptimal Energy Intake (Severe),Weight Loss (Severe) Intake Problem Increased Nutrient Needs (specify) Etiology protein related to skin status Signs/Symptoms as evidenced by PI neville buttock Status Active Problem Inadequate Oral Intake Etiology related to swallowing difficulty Signs/Symptoms as evidenced by NPO and need for enteral nutrition support Status Active Problem Clinical Problem Acute Disease or Injury Related Malnutrition Etiology severe protein-calorie malnutrition in the context of acute illness and injury related to swallowing difficulty and inadequate energy intake Signs/Symptoms as evidenced by ~10% unintentional weight loss x less than 1 month and oral intake meeting less than 50-75% estimated nutrition needs; need for enteral nutrition support Status Active Problem Recommendation Dietitian NPO; W[employer] SERV[employer] SUPERVISOR evaluation to assess ability to safely take Recommendations/ oral nutrition. Changes Will change bolus tf to 240 ml Jevity 1.5 w/ 180 ml water flush 5x/day (800, 1100, 1400, 1800, 2200) to provide 1800 randy / 76 gm pro/ 1812 ml free water/day. Rec Khalif bid w/ medpass if warranted to help w/ wound healing. Will monitor TF tolerance, weight and follow-up. Lab / Micro Data 06/11/25 07:19 06/11/25 07:19 Labs: Laboratory Results - last 24 hr 06/14/25 17:55: POC Glucose 97 06/15/25 00:42: POC Glucose 123 H 06/15/25 05:50: POC Glucose 94 Micro: Microbiology 06/15/25 06:31 Nasal Secretion SARS-CoV-2 Antigen (Rapid) - Final Assessment & Plan Assessment/Plan (1) Dysphagia: PLAN: The 89-year-old male is diagnosed with oropharyngeal dysphagia, specifically related to poor UES opening likely due to subarachnoid hemorrhage and subdural hematoma. He has reduced hyolaryngeal excursion, which is a commonage-related change, is a primary biomechanical cause. His advanced age also places him at a higher risk for silent aspiration, a severe complication of dysphagia where aspiration occurs without a cough or other sign of distress. The patient will be managed very well with a combination of compensatory strategies, strengthening exercises, and nutritional support. He may need esophageal manometry or repeat endoscopy to rule out other esophageal issues suchas achalasia, strictures, or diverticulum. So the plan will be for him to have repeat upper endoscopy on 06/17/2025. Please hold his tube feedings at midnight on 06/16/2025. Charges/Coding Visit Charges Inpatient E&M: 44975 SNF Init L2 08/25/25 1813 <Electronically signed by Stan Ferrara DO> Cosigner Signature (if applicable): CC: Dr. Devan Barrera MD; Dr. Jesus Alberto Wiggins MD~ Signed [facility] Work Phone: [phone] [phone] Consult note [facility] Medical Records Department [address] [place] [address] Consultation - GI 06/15/25 180 MR#: [id number] Acct: [id number] Name: FAWN CAMERON Rep #:[id number] : 1935 89 From: Stan Ferrara DO PCP: Dr. Devan Barrera MD Status:AD M IN Location: [place] [address] HPI Consult Data Date of Consult: 06/15/25 HPI Narrative Reason for Consultation: Ongoing dysphagia and abnormal swallowing study HPI Narrative: 89 year old male with below past medical history hospitalized for SDH, SAH, multiple traumatic fractures, complicated by dysphagia requiring dobbhoff TF, admitted to TCU with debility. I was consulted to see him due to his inability to swallow safely and need for placement of PEG tube. A PEG tube was placed. He recently underwent a repeat video swallow and was discovered to have problemsat the level of the upper esophageal sphincter in decreased clearance of liquidsonce and into the esophagus. He has been having problems with dysphagia, coughing, and a wet, gurgly vocal quality following meals * Video Swallow Study (VFSS):?Shows poor upper esophageal sphincter (UES) opening during swallowing. * Oral Phase:?Noted to be intact and within functional limits. * Pharyngeal Phase: * Initiation of swallow is delayed, with bolus pooling in the pharyngeal and pyriform sinuses. * Hyolaryngeal excursion (upward and forward movement) is reduced, contributing to the poor UES opening. * Following the swallow, significant residue is observed in the pharyngeal area. * Airway Protection:?Penetration and trace aspiration are observed with thin liquids due to UES dysfunction and residual pooling. * Esophageal Phase:?The limited view of the esophageal phase shows possible poor motility, but a full evaluation is warranted. [facility] Medical History Dysphagia Hyperlipidemia Depression BPH (benign prostatic hyperplasia) TIA (transient ischemic attack) Coronary artery disease Carotid artery stenosis Osteoarthritis Essential (primary) hypertension GERD (gastroesophageal reflux disease) Sacral fracture Bilateral pubic rami fractures SAH (subarachnoid hemorrhage) SDH (subdural hematoma) Orbital roof fracture Orbital floor fracture Debility Home Medications ?Medication ?Instructions ?Recorded ?Last Taken ?Type acetaminophen 325 mg capsule 650 mg feeding tube Q6H P ain 05/20/25 05/20/25 10:20 History alfuzosin 10 mg tablet,extended 10 mg PO DAILY BPH Unknown History release 24 hr amitriptyline 10 mg tablet 10 mg feeding tube QHS Mood 05/20/25 Unknown History amlodipine 5 mg tablet 5 mg feeding tube DAILY BP 0 05/20/25 Unknown History aspirin 81 mg tablet 81 mg PO DAILY Heart 5 Unknown History benazepril 40 mg tablet 40 mg feeding tube DAILY BP 05/20/25 Unknown History bisacodyl 5 mg tablet 5 mg PO DAILY PRN constipati on 05/20/25 Unknown History cholecalciferol (vitamin D3) 125 125 mcg feeding tube DAILY 05/20/25 05/20/25 10:20 History mcg (5,000 unit) tablet Supplement cyanocobalamin (vitamin B-12) 1,000 mcg PO DAILY Suppl ement 05/20/25 05/20/25 10:25 History 1,000 mcg capsule enoxaparin 30 mg/0.3 mL 30 mg subcut Q12H DVT prophy laxis 05/20/25 05/20/25 12:30 History subcutaneous syringe escitalopram oxalate 5 mg tablet 5 mg feeding tube SID LY Mood 05/20/25 Unknown History folic acid 1 mg tablet 2 mg feeding tube DAILY Supp lement 05/20/25 Unknown History methotrexate sodium 5 mg tablet 20 mg feeding tube QWE EK Arthritis 05/20/25 Unknown History (Trexall) metoprolol tartrate 25 mg tablet 25 mg feeding tube BI D BP 05/20/25 Unknown History omeprazole 40 mg capsule,delayed 40 mg PO DAILY GERD 0 05/20/25 Unknown History release ondansetron HCl 4 mg tablet 4 mg feeding tube Q8H PRN nausea 05/20/25 Unknown History and vomiting oxycodone 5 mg tablet 5 mg feeding tube Q4H PRN pa in 05/20/25 Unknown History (scale score 7-10) pantoprazole 40 mg tablet,delayed 40 mg PO DAILY GERD 05/20/25 Unknown History release polyethylene glycol 3350 17 17 g feeding tube DAILY Unknown History gram/dose oral powder (Miralax) Constipation pravastatin 40 mg tablet 40 mg feeding tube QHS Vivian sterol 05/20/25 Unknown History sennosides 8.6 mg tablet (Senokot) 8.6 mg PO QHS Const ipation 05/20/25 Unknown History vitamins A,C,E-kxzc-mowuyd 4,296 1 cap PO DAILY Eye Vi tamin 05/20/25 Unknown History mcg-226 mg-90 mg capsule (Healthy Eyes SuperVision) doxazosin 4 mg tablet (Cardura) 4 mg PO QHS 05/25/25 U nknown History lactose-reduced food-fiber 0.07 See Rx Instructions fe eding tube 05/25/25 Unknown History gram-1.5 kcal/mL liquid for tube .COMPLEX feed (Isosource 1.5 Randy) menthol 0.44 %-zinc oxide 20.6 % 1 applic topical BID 05/25/25 Unknown History topical ointment (CalaSoothe) Allergy/AdvReac Type Severity Reaction Status Date / Time No Known Allergies Allergy Verified 05/20/25 19:39 Family History Mother Hypertension Hyperlipidemia, unspecified Osteoarthritis Hearing loss Vision loss Father Heart disease Pneumonia CVA (cerebral vascular accident) Hearing loss Suicide attempt Surgical History History of wisdom tooth extraction History of vasectomy History of tonsillectomy and adenoidectomy History of total hip arthroplasty History of shoulder surgery History of hernia repair History of colonoscopy History of circumcision History of cataract surgery History of cardiac catheterization Social History household members: spouse Smoking Status: Former smoker alcohol intake: never substance use type: does not use ROS Constitutional Constitutional: Denies fatigue, fever(s), poor appetite, weight gain or weight loss Gastrointestinal Gastrointestinal: Denies belching, bloating, change in bowel habits, change in stool character, chewing difficulty, coffee ground emesis, constipation, cramping, diarrhea, dyspepsia, dysphagia, earlysatiety, excessive flatus, fecalincontinence, heartburn, hematemesis, hematochezia, hemorrhoids, loose stools, melena, nausea, odynophagia, rectal bleeding, tenesmus, vomiting or weight changes Physical Exam Const alert, oriented x3, no apparent distress and healthy appearing General Appearance: cooperative GI normal to inspection, nondistended, normoactive bowel sounds, soft to palpation,non-tender and non-distended Percussion: normal to percussion Rectal Exam: deferred Medical Records Data Medical Nutrition Assessment Dietitian: Malnutrition Criteria Met Start: 05/21/25 14:30 Freq: Status: Active Protocol: Document 06/03/25 09:58 SLA (Rec: 06/03/25 09:59 SLA [id number]) Nutrition Malnutrition Evidence of Yes Malnutrition Exists Malnutrition (severe Acute Illness/Injury ): Evidenced By Suboptimal Energy Intake (Severe),Weight Loss (Severe) Intake Problem Increased Nutrient Needs (specify) Etiology protein related to skin status Signs/Symptoms as evidenced by PI neville buttock Status Active Problem Inadequate Oral Intake Etiology related to swallowing difficulty Signs/Symptoms as evidenced by NPO and need for enteral nutrition support Status Active Problem Clinical Problem Acute Disease or Injury Related Malnutrition Etiology severe protein-calorie malnutrition in the context of acute illness and injury related to swallowing difficulty and inadequate energy intake Signs/Symptoms as evidenced by ~10% unintentional weight loss x less than 1 month and oral intake meeting less than 50-75% estimated nutrition needs; need for enteral nutrition support Status Active Problem Recommendation Dietitian NPO; W[employer] SERVICE SUPERVISOR evaluation to assess ability to safely take Recommendations/ oral nutrition. Changes Will change bolus tf to 240 ml Jevity 1.5 w/ 180 ml water flush 5x/day (800, 1100, 1400, 1800, 2200) to provide 1800 randy / 76 gm pro/ 1812 ml free water/day. Rec Khalif bid w/ medpass if warranted to help w/ wound healing. Will monitor TF tolerance, weight and follow-up. Lab / Micro Data 06/11/25 07:19 06/11/25 07:19 Labs: Laboratory Results - last 24 hr 06/14/25 17:55: POC Glucose 97 06/15/25 00:42: POC Glucose 123 H 06/15/25 05:50: POC Glucose 94 Micro: Microbiology 06/15/25 06:31 Nasal Secretion SARS-CoV-2 Antigen (Rapid) - Final Assessment & Plan Assessment/Plan (1) Dysphagia: PLAN: The 89-year-old male is diagnosed with oropharyngeal dysphagia, specifically related to poor UES opening likely due to subarachnoid hemorrhage and subdural hematoma. He has reduced hyolaryngealexcursion, which is a commonage-related change, is a primary biomechanical cause. His advanced age a lso places him at a higher risk for silent aspiration, a severe complication of dysphagia where aspiration occurs without a cough or other sign of distress. The patient will be managed very well with a combination of compensatory strategies, strengthening exercises, and nutritional support. He may need esophageal manometry or repeat endoscopy to rule outother esophageal issues suchas achalasia, strictures, or diverticulum. So the plan will be for him to have repeat upper endoscopy on 06/17/2025. Please hold his tube feedings at midnight on 06/16/2025. Charges/Coding Visit Charges Inpatient E&M: 41036 SNF Init L2 06/15/25 1813 Cosigner Signature (if applicable): CC: Dr. Devan Barrera MD; Dr. Jesus Alberto Wiggins MD~ Signed [facility]08-25-2025 Procedure note [facility] Speech Pathology [address] [place] [address] Modified Barium Swallow Study MR#: [id number] Acct: [id number] Name: FAWN CAMERON Rep #:[id number] : 1935 89 From: Lincoln Coats, [facility]-[employer] SERV[employer]PER[employer] Modified Barium Swallow Patient Information Study Date: 06/15/25 Study Time: 10:30 Direct Billable Minutes: 117 Total Minutes procedure & reportin Diagnosis: Dysphagia R13.10 Referring Physician: Jesus Alberto Wiggins Chi Reason for Referral: Assess swallow function, assess risk for aspiration, and determine recommendations for least restrictive diet textures and compensatory strategies to improve swallowing safety. 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 Injuries:?1. Right orbital floor. 2. Buckle fracture right anterior cranial floor/orbital roof. 3. Small right subdural hematoma. 4. Trace right frontal SAH.?5. Bilateral pubic rami fracture with extension to acetabular wall.?6. Nondisplaced Sacral ala fracture right. Incidental findings:?1. 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 Left common iliac aneurysm..?3. Right common iliac aneurysm. During his hospitalization 05/10/25-05/20/25 he was also diagnosed with severe oropharyngeal dysphagia with recommendation for NPO. A Dobhoff was placed05/14/25 after MBSS revealed severe oropharyngeal dysphagia w/ silent aspiration of all liquid consistencies. Other noted concerns from MBSS were severe cervicallordosis, delayed initiation of the pharyngeal swallow, incomplete airway closure, reduced pharyngeal constriction, reduced UES opening/duration, and ineffective cued coughs. Admitted to [facility] 05/20/[address], OT, PT prior to discharge home w/ . ?ST evaluation 05/21/2025 recommended NPO. 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 He has participatedin 10 dysphagia therapy sessions w/ oropharyngeal strengthening in junction w/ NMES, as well as thin water trials w/[employer] SERVICE SUPERVISOR and vocal adduction exercises. The patient has been recommended for repeat MBSStoday to re-evaluate swallow function, aspiration risk, and consider the patient for diet advancement if appropriate. PMH: Dysphagia, HLD, Depression, BPH, TIA, CAD, Carotid artery stenosis, Osteoarthritis, HTN, GERD,Sacral fracture, Bilateral pubic rami fractures, SAH, SDH, Orbital roof fracture, Orbital floor fracture, Debility. Current Diet Ordered: NPO Dentition: Natural Teeth and Missing Teeth Mental Status: Impaired Respiratory Status: Oxygenating on Room Air Penetration-Aspiration Scale Penetration-Aspiration Scale: OBJECTIVE ASSESSMENT OF SWALLOW FUNCTION (QUANTITATIVE ? PER TRIAL): PENETRATION / ASPIRATION SCALE (DE JESUS): 1 = does not enter airway 2 = enters airway/above vocal folds/ejected 3 = enters airway/above vocal folds/not ejected 4 = enters airway/contacts vocal folds/ejected 5 = enters airway/contacts vocal folds/not ejected 6 = enters airway/below vocal folds/ejected 7 = enters airway/below vocal folds/not ejected despite effort 8 = enters airway/below vocal folds/no effort VIDEOFLOROSCOPIC SCALE SCORE (DE JESUS): Grade I = aspiration of material that has penetrated into the laryngeal vestibule, intact cough reflex Grade II = aspiration < 10 % of the bolus, intact cough reflex Grade III = aspiration of < 10 % of the bolus, reduced cough reflex or aspiration of > 10 % of the bolus, intact cough reflex Grade IV = aspiration of > 10 % of the bolus, reduced cough reflex Penetration-Aspiration Scale Score Thin Liquid via teaspoon: Result: 8= enters airway/below vocal folds/no effort Thin Liquid via teaspoon Chin tuck: Result: 7= enters airways/below vocal folds/not ejected despite effort Comment: Delayed, reflexive throat clear appeared to mostly clear aspirated and penetrated contrast. [place] Thick Liquid via teaspoon: Result: 3= enters airways/above vocal folds/not ejected [place] Thick Liquid via teaspoon Trial 2: Result: 3= enters airways/above vocal folds/not ejected [place] Thick Liquid via small single sip: cup: Result: 3= enters airways/above vocal folds/not ejected Pudding via teaspoon: Result: 2= enter airway/above vocal folds/ejected Comment: Esophageal screen - Retention throughout the esophagus. [place] Thick Liquid via small single sip: cup Trial 2: Result: 7= enters airways/below vocal folds/not ejected despite effort Comment: Esophageal screen - Liquid wash somewhat cleared pudding retention in the esophagus; however, significant barium pudding retention remained in the middle esophagus after liquid wash. [place] Thick Liquid Trial 3: Result: 5= enters airways/contacts vocal folds/not ejected Comment: Reflexive throat appeared to fully clear penetrated contrast from the vocal folds and laryngeal vestibule. [place] Thick Liquid w/ Cued effortful, multiple swallows and volitional throat [id number]: Result: 2= enter airway/above vocal folds/ejected Pudding via teaspoon Trial 2: Result: 2= enter airway/above vocal folds/ejected [place] Thick Liquid w/ Cued effortful, multiple swallows and volitional throat [id number] 2: Result: 4= enters airway/contacts vocal folds/ejected Oral Phase Labial Seal: No Labial Escape Tongue Control During Bolus Hold: Posterior escape of greater than half of bolus(pudding trial 2 w/lingual pumping) Bolus Transport/Lingual Motion: Repetitive/disorganized tongue motion Oral Residue: Residue collection on oral structures Pharyngeal Phase Initiation of Pharyngeal Swallow: Bolus head in valleculae Soft Palate Elevation: Escape to nasopharynx Laryngeal Elevation: Partial superior movement thyroid cart/partial apprx aryt- epig petiole Anterior Hyoid Excursion: Partial anterior movement Epiglottic Movement: Partial inversion Laryngeal Vestibule Closure at Height of Swallow: Incomplete; narrow column of air/contrast in laryngeal vestibule Pharyngeal Stripping Wave: Present - diminished Pharyngoesophageal Segment Opening: Minimal distension and minimal duration; marked obstruction of flow Tongue Base Retraction: Wide column of contrast between tongue base & post. pharyngeal wall Pharyngeal Residue: Majority of contrast within or on pharyngeal structures Esophageal Phase Esophageal Clearance: Esophageal retention Diagnosis/Impression Diagnosis: Moderate-severe oropharyngeal dysphagia R13.12; Esophageal dysphagia R13.14 MBS Impressions: The oral phase is primarily marked by... -Did not assess mastication abilities due to poor pharyngeal clearance of pudding and concern for increased risk for choking w/ solids. -Mildly decreased bolus control w/ posterior loss of >1/2 of pudding bolus to the vallecula prior to swallow onset. -Lingual pumping w/ pudding. The pharyngeal phase is primarily marked by... -Decreased pharyngeal motility secondary to poor TB retraction and pharyngeal stripping wave. Liquid wash helped to clear pharyngeal retention of pudding. -Decreased airway closure secondary to decreased laryngeal elevation and anterior hyoid excursion w/ partial epiglottic inversion. -SILENT aspiration of thin liquids by tsp (first trial). Overt aspiration of thin by tsp (second trial) and mildly thick liquids via cup w/ delayed reflexivecough and throat clear w/ these trials. Reflexive cough and throat clear were mostly effective in clearing penetrated/aspirated barium. The esophageal phase is primarily marked by... -Retention of pudding throughout the esophagus, which somewhat cleared when provided mildly thick liquid wash. Recommendations Diet: NPO Comment: Ok for trials of puree and mildly thick liquids w/ WARD SERVICE SUPERVISOR only. Recommend tsp bitesof puree consistencies w/ use of effortful, multiple swallows. Recommend tsp sips of mildly thick liquids w/ use of effortful, multiple swallow and cough/throat clear and re-swallow w/ each sip. Recommend Repeat Modified Barium Swallow: Yes (Will recommend repeat MBSS after continued participation in NMES for 1-2 weeks OR after GI intervention if patient is deemed appropriate for dilation atthe UES.) Need for Skilled Speech Therapy Services: Yes Comment: -Continue per TCU dysphagia POC utilizing NMES in junction w/ oropharyngeal exercise and po trials w/ WARD SERVICE SUPERVISOR. -Oropharyngeal exercise to consider would include Josette, Candis, Effortful,CTAR, and also velopharyngeal exercise. -If good diet tolerance of trials of puree / mildly thick liquids w/ WARD SERVICE SUPERVISOR, could consider bedside diet advancement to either full mildly thick liquid or puree textures / mildly thick liquids by tsp w/strict aspiration precautions if deemed clinically appropriate by treating WARD SERVICE SUPERVISOR. Would monitor respiratory status closely. Recommended Referrals: GI Consult (Poor UES opening/duration and esophageal retention of barium) Education Completed: 1. Described result of evaluation. Status Active ST Patient: Active Contact Information [facility] Speech Therapy:: Lincoln Jensen M.A. CCC-WARD SERVICE SUPERVISOR Speech-Language Pathologist [facility] [address] [place] [address] [email or web address] [phone] 06/15/25 Lc Verma CCC-WARD SERVICE SUPERVISOR> Date/Time Lincoln Jensen M.A. CCC-WARD SERVICE SUPERVISOR Co-Signature Required for all Medicare patients Date/Time Co-Signature CC: ~ [facility]08-18-2025 Radiology Diagnostic study note [facility] Imaging Services [address] [place] [address] Abdomen Single View MR#: [id number] Acct: [id number] Name: FAWN CAMERON Rep #: [id number] 1 : 1935 M 89 From: Michael Brown MD PCP: Dr. Devan Barrera MD Status: AD M IN Study:Abdomen Single View Date of Exam: 06/08/25 Exam# [id number] Ordering Dr: Jesus Alberto Wiggins MD PROCEDURE: ABDOMEN SINGLE VIEW 06/08/2025 REASON FOR EXAM: DIARRHEA TECHNIQUE: ABDOMEN SINGLE VIEW COMPARISON: 05/24/2025. FINDINGS: Percutaneous gastrostomy tube projects over the epigastric region. Nonspecific, nonobstructive bowel gas pattern. No discernible free air. No unusual calcific densities. Imaged lung bases are clear. Multilevel degenerative changes of the spine with mild lumbar levoscoliotic curvature. 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 Qualitative osteopenia. Prominent atherosclerotic vascular calcifications. RAD/Abdomen Single View IMPRESSION: No radiographically evident acute abnormality. Nonobstructive gas pattern. Reading Location: [id number] CC: Dr. Devan Barrera MD; Dr. Jesus Alberto Wiggins MD ~ Game Designer: Signed [facility]08-12-2025 History and physical note Author Jesus Alberto Wiggins [facility] Note Date/Time June 02, 2025 5: 18pm [facility] Medical Records Department [address] [place] [address] History & Physical Exam 05/20/252129 MR#: [id number] Acct: [id number] Name: FAWN CAMERON Rep #:[id number] 5 : 1935 89 From: Jesus Alberto Wiggins MD PCP: Dr. Devan Barrera MD Status:AD M IN Location: [facility] TCU05-1 HPI - General General Date of Admission: 05/20/25 Date of Service: 05/20/25 Chief Complaint: Here for rehabilitation. HPI Narrative FAWN CAMERON, is a 89 Male who presents with followin05/10/2025 Admit [facility]. 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 Injuries: 1. [...] extremity for bilateral pubic rami fracture. 05/14/2025 WARD SERVICE SUPERVISOR recommended NPO. 05/15/2025 No acute events overnight. Dobbhoff tube placed for TF. 05/16/2025 Advance TF to goal. 05/18/2025 No acute events overnight. Dizzy with PT. 05/19/2025 PT/OT/CM for SNF. 05/20/2025 Admit to TCU with debility, here for rehabilitation, strengthening, prior to discharge home with . [facility] Medical History (Updated 05/20/25 @ 21:[address] Jesus Alberto Wiggins MD) Dysphagia Hyperlipidemia Depression BPH (benign prostatic hyperplasia) TIA (transient ischemic attack) Coronary artery disease Carotid artery stenosis Osteoarthritis Essential (primary) hypertension GERD (gastroesophageal reflux disease) Sacral fracture Bilateral pubic rami fractures SAH (subarachnoid hemorrhage) SDH (subdural hematoma) Orbital roof fracture Orbital floor fracture Debility Home Medications ?Medication ?Instructions ?Recorded ?Last Taken ?Type acetaminophen 325 mg capsule 650 mg feeding tube Q6H P ain 05/20/25 05/20/25 10:20 History alfuzosin 10 mg tablet,extended 10 mg PO DAILY BPH Unknown History release 24 hr amitriptyline 10 mg tablet 10 mg feeding tube QHS Mood 05/20/25 Unknown History amlodipine 5 mg tablet 5 mg feeding tube DAILY BP 0 05/20/25 Unknown History aspirin 81 mg tablet 81 mg PO DAILY Heart 5 Unknown History benazepril 40 mg tablet 40 mg feeding tube DAILY BP 05/20/25 Unknown History bisacodyl 5 mg tablet 5 mg PO DAILY PRN constipati on 05/20/25 Unknown History cholecalciferol (vitamin D3) 125 125 mcg feeding tube DAILY 05/20/25 05/20/25 10:20 History mcg (5,000 unit) tablet Supplement cyanocobalamin (vitamin B-12) 1,000 mcg PO DAILY Suppl ement 05/20/25 05/20/25 10:25 History 1,000 mcg capsule enoxaparin 30 mg/0.3 mL 30 mg subcut Q12H DVT prophy laxis 05/20/25 05/20/25 12:30 History subcutaneous syringe escitalopram oxalate 5 mg tablet 5 mg feeding tube SID LY Mood 05/20/25 Unknown History folic acid 1 mg tablet 2 mg feeding tube DAILY Supp lement 05/20/25 Unknown History methotrexate sodium 5 mg tablet 20 mg feeding tube QWE EK Arthritis 05/20/25 Unknown History (Trexall) metoprolol tartrate 25 mg tablet 25 mg feeding tube BI D BP 05/20/25 Unknown History omeprazole 40 mg capsule,delayed 40 mg PO DAILY GERD 0 05/20/25 Unknown History release ondansetron HCl 4 mg tablet 4 mg feeding tube Q8H PRN nausea 05/20/25 Unknown History and vomiting oxycodone 5 mg tablet 5 mg feeding tube Q4H PRN pa in 05/20/25 Unknown History (scale score 7-10) pantoprazole 40 mg tablet,delayed 40 mg PO DAILY GERD 05/20/25 Unknown History release polyethylene glycol 3350 17 17 g feeding tube DAILY Unknown History gram/dose oral powder (Miralax) Constipation pravastatin 40 mg tablet 40 mg feeding tube QHS Vivian sterol 05/20/25 Unknown History sennosides 8.6 mg tablet (Senokot) 8.6 mg PO QHS Const ipation 05/20/25 Unknown H istory vitamins A,C,U-ybgj-rooaeb 4,296 1 cap PO DAILY Eye Vi tamin 05/20/25 Unknown History mcg-226 mg-90 mg capsule (Healthy Eyes SuperVision) Allergy/AdvReac Type Severity Reaction Status Date / Time No Known Allergies Allergy Verified 05/20/25 19:39 Family History (Updated 05/20/25 @ 21:[address] Jesus Alberto Wiggins MD) Mother Hypertension Hyperlipidemia, unspecified Osteoarthritis Hearing loss Vision loss Father Heart disease Pneumonia CVA (cerebral vascular accident) Hearing loss Suicide attempt Surgical History (Updated 05/20/25 @ 21:[address] Jesus Alberto Wiggins MD) History of wisdom tooth extraction History of vasectomy History of tonsillectomy and adenoidectomy History of total hip arthroplasty History of shoulder surgery History of hernia repair History of colonoscopy History of circumcision History of cataract surgery History of cardiac catheterization Social History (Updated 05/20/25 @ 21:[address] Jesus Alberto Wiggins MD) household members: spouse Smoking Status: Former smoker alcohol intake: never substance use type: does not use ROS Constitutional Constitutional: Reports weakness; Denies chills, fever(s) or weight gain ENT HEENT: Denies headache(s), nasal congestion or nasal discharge Cardiovascular Cardiovascular: Denies chest pain or palpitations Respiratory/Chest Respiratory/Chest: Denies cough, excessive phlegm production or shortness of breath with exertion Gastrointestinal Gastrointestinal: Denies abdominal pain, nausea or vomiting Genitourinary Genitourinary: Denies dysuria Musculoskeletal Musculoskeletal: Denies joint pain or joint swelling Integumentary Integumentary: Denies rash or wounds Neurologic Neurologic: Denies focal weakness, numbness or tingling Psychiatric Psychiatric: Denies anxiety, auditory hallucinations, depression, homicidal ideation or suicidal ideation Vital Signs Vital Signs Vital Signs: 05/20/25 18:06 05/20/25 21:14 Temperature 98.0 F Temperature Source Temporal Pulse Rate 96 101 H Respiratory Rate 17 Blood Pressure 142/91 H 141/81 H Blood Pressure Mean 108 101 Blood Pressure Source Monitor Monitor Blood Pressure Position Semi-Fowlers Semi-Fowlers Blood Pressure Location Right Arm Right Arm Pulse Ox 91 Oxygen Delivery Method Room Air Weight Weight: 63.458 kg Body Mass Index (BMI) 22.6 Physical Exam Const alert General Appearance: cooperative HEENT normocephalic HEENT Narrative: Dobbhoff tube. Eyes PERRL and EOMs intact bilaterally Neck supple, no JVD and no carotid bruits Resp normal respiratory effort, normal air movement and clear to auscultation bilaterally Cardio regular rate and regular rhythm GI normal to inspection, nondistended, normoactive bowel sounds, non-tender and non-distended Extremity normal capillary refill General Extremity: Negative for edema Skin no rashes or lesions noted General Skin Exam: no breakdown Psych affect normal Appearance: appropriate Assessment & Plan Assessment/Plan (1) Debility: (2) Orbital floor fracture: (3) Orbital roof fracture: (4) SDH (subdural hematoma): (5) SAH (subarachnoid hemorrhage): (6) Bilateral pubic rami fractures: (7) Sacral fracture: (8) GERD (gastroesophageal reflux disease): (9) Essential (primary) hypertension: (10) Osteoarthritis: (11) Carotid artery stenosis: (12) Coronary artery disease: (13) TIA (transient ischemic attack): (14) BPH (benign prostatic hyperplasia): (15) Depression: (16) Hyperlipidemia: (17) Dysphagia: PLAN: Plan 89 year old male with below past medical history hospitalized for SDH, SAH, multiple traumatic fractures, complicated by dysphagia requiring dobbhoff TF, admitted to TCU with debility, here for rehabilitation, strengthening, prior to discharge home with . * Debility - PT/OT. * Dysphagia - ST, advance diet as tolerated, if unable consider PEG, patient willing. * Pain - Tylenol 650mg q6, Oxycodone 5mg q4 prn. * Bowel - Miralax 17gm daily, Senokot 1 tablet qhs. * Adult immunization - Administer pneumonia vaccine, covid vaccine, flu vaccine as appropriate. * DVT prophylaxis - Lovenox 30mg sc bid. * Hypertension - Metoprolol 25mg bid, Lisinopril 40mg daily, Amlodipine 5mg daily. * Coronary artery disease - Metoprolol 25mg bid, Lisinopril 40mg daily, Aspirin 81mg daily. * Vitamin D deficiency - D 125mcg daily. * Vitamin B12 deficiency - B12 1000mcg daily. * Inflammatory polyarthropathy - MTX 20mg qweek, Folic acid 2mg daily. * Nutrition - Jevity 1.5 50ml/hour. * GERD - Lansoprazole 30mg daily. * Macular degeneration - Healthy Eyes 1 capsule daily. * Nausea - Zofran odt 4mg q8 prn. * Hyperlipidemia - Pravastatin 40mg qhs. * BPH - Doxazosin 4mg qhs. The following psychotropic medication was present on admission: Elavil 10mg qhs. Psychotropic medication therapy is indicated for a diagnosis of: Insomnia. Based on my clinical evaluation, continuation of the medication is necessary at this time. Gradual dose reduction plan (select one): ____ GDR will be attempted. Will monitor patient symptoms and behaviors in response to GDR. __x__ GRD contraindicated. 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 The following psychotropic medication was present on admission: Lexapro 5mg daily. Psychotropic medication therapy is indicated for a diagnosis of: Depression. Based on my clinical evaluation, continuation of the medication is necessary at this time. Gradual dose reduction plan (select one): ____ GDR will be attempted. Will monitor patient symptoms and behaviors in response to GDR. __x__ GRD contraindicated. 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 05/20/25 [id number] <Electronically signed by Jesus Alberto Wiggins MD> Cosigner Signature (if applicable): CC: Dr. Devan Barrera MD; Dr. Jesus Alberto Wiggins MD~ Signed ADDENDUM by Dr. Jesus Alberto Wiggins MD on 05/22/25 at 1347 Addendum Malnutrition - consult dietary. 05/22/25 1347<Electronically signed by Jesus Alberto Wiggins MD> Cosigner Signature (if applicable): cc: Dr. Devan Barrera MD; Dr. Jesus Alberto Wiggins MD ~* Signed ADDENDUM by Dr. Jesus Alberto Wiggins MD on 05/26/25 at 1713 Addendum Resident hypoxic after PEG placement, oxygen 4 liters per nasal cannula. Aspiration pneumonia - PE ruled out, Unasyn 3gm iv q6 x 7 days. Acute respiratory failure with hypoxia - Wean oxygen as tolerated, oxygen down to 2 liters per nasal cannula. Congestion - Medrol dose pack. Wheezing - Duoneb 3ml q6wart, Albuterol 2.5mg neb q2h prn. 05/26/251712<Electronically signed by Jesus Alberto Wiggins MD> Cosigner Signature (if applicable): cc: Dr. Devan Barrera MD; Dr. Jesus Alberto Wiggins MD ~* Signed ADDENDUM by Dr. Jesus Alberto Wiggins MD on 05/27/25 at 1718 Addendum Rash - Hytone cream topical bid prn. 05/27/251717<Electronically signed by Jesus Alberto Wiggins MD> Cosigner Signature (if applicable): cc: Dr. Devan Barrera MD; Dr. Jesus Alberto Wiggins MD ~* Signed ADDENDUM by Dr. Jesus Alberto Wiggins MD on 06/02/25 at 1718 Addendum 05/26/2025 Edema - Lasix 20mg IV x 1 dose given. 06/02/251717<Electronically signed by Jesus Alberto Wiggins MD> Cosigner Signature (if applicable): cc: Dr. Devan Barrera MD; Dr. Jesus Alberto Wiggins MD ~* Signed [facility] Work Phone: [phone] 233-205008-12-2025 History and physical note [facility] Medical Records Department [address] [place] [address] History & Physical Exam 05/20/25 2130 MR#: [id number] Acct: [id number] Name: OBFAWN CONNOLLY Rep #:[id number] 5 : 1935 89 From: Jesus Alberto Wiggins MD PCP: Dr. Devan Barrera MD Status:AD M IN Location: [facility] TCU05-1 HPI - General General Date of Admission: 05/20/25 Date of Service: 05/20/25 Chief Complaint: Here for rehabilitation. HPI Narrative FAWN CAMERON, is a 89 Male who presents with followin05/10/2025 Admit [facility]. 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 Injuries: 1. [...] extremity for bilateral pubic rami fracture. 05/14/2025 WARD SERVICE SUPERVISOR recommended NPO. 05/15/2025 No acute events overnight. Dobbhoff tube placed for TF. 05/16/2025 Advance TF to goal. 05/18/2025 No acute events overnight. Dizzy with PT. 05/19/2025 PT/OT/CM for SNF. 05/20/2025 Admit to TCU with debility, here for rehabilitation, strengthening, prior to discharge home with . [facility] Medical History (Updated 05/20/25 @ 21:[address] Jesus Alberto Wiggins MD) Dysphagia Hyperlipidemia Depression BPH (benign prostatic hyperplasia) TIA (transient ischemic attack) Coronary artery disease Carotid artery stenosis Osteoarthritis Essential (primary) hypertension GERD (gastroesophageal reflux disease) Sacral fracture Bilateral pubic rami fractures SAH (subarachnoid hemorrhage) SDH (subdural hematoma) Orbital roof fracture Orbital floor fracture Debility Home Medications ?Medication ?Instructions ?Recorded ?Last Taken ?Type acetaminophen 325 mg capsule 650 mg feeding tube Q6H P ain 05/20/25 05/20/25 10:20 History alfuzosin 10 mg tablet,extended 10 mg PO DAILY BPH Unknown History release 24 hr amitriptyline 10 mg tablet 10 mg feeding tube QHS Mood 05/20/25 Unknown History amlodipine 5 mg tablet 5 mg feeding tube DAILY BP 0 05/20/25 Unknown History aspirin 81 mg tablet 81 mg PO DAILY Heart 5 Unknown History benazepril 40 mg tablet 40 mg feeding tube DAILY BP 05/20/25 Unknown History bisacodyl 5 mg tablet 5 mg PO DAILY PRN constipati on 05/20/25 Unknown History cholecalciferol (vitamin D3) 125 125 mcg feeding tube DAILY 05/20/25 05/20/25 10:20 History mcg (5,000 unit) tablet Supplement cyanocobalamin (vitamin B-12) 1,000 mcg PO DAILY Suppl ement 05/20/25 05/20/25 10:25 History 1,000 mcg capsule enoxaparin 30 mg/0.3 mL 30 mg subcut Q12H DVT prophy laxis 05/20/25 05/20/25 12:30 History subcutaneous syringe escitalopram oxalate 5 mg tablet 5 mg feeding tube SID LY Mood 05/20/25 Unknown History folic acid 1 mg tablet 2 mg feeding tube DAILY Supp lement 05/20/25 Unknown History methotrexate sodium 5 mg tablet 20 mg feeding tube QWE EK Arthritis 05/20/25 Unknown History (Trexall) metoprolol tartrate 25 mg tablet 25 mg feeding tube BI D BP 05/20/25 Unknown History omeprazole 40 mg capsule,delayed 40 mg PO DAILY GERD 0 05/20/25 Unknown History release ondansetron HCl 4 mg tablet 4 mg feeding tube Q8H PRN nausea 05/20/25 Unknown History and vomiting oxycodone 5 mg tablet 5 mg feeding tube Q4H PRN pa in 05/20/25 Unknown History (scale score 7-10) pantoprazole 40 mg tablet,delayed 40 mg PO DAILY GERD 05/20/25 Unknown History release polyethylene glycol 3350 17 17 g feeding tube DAILY Unknown History gram/dose oral powder (Miralax) Constipation pravastatin 40 mg tablet 40 mg feeding tube QHS Vivian sterol 05/20/25 Unknown History sennosides 8.6 mg tablet (Senokot) 8.6 mg PO QHS Const ipation 05/20/25 Unknown H istory vitamins A,C,H-ilif-lymfnc 4,296 1 cap PO DAILY Eye Vi tamin 05/20/25 Unknown History mcg-226 mg-90 mg capsule (Healthy Eyes SuperVision) Allergy/AdvReac Type Severity Reaction Status Date / Time No Known Allergies Allergy Verified 05/20/25 19:39 Family History (Updated 05/20/25 @ 21:[address] Jesus Alberto Wiggins MD) Mother Hypertension Hyperlipidemia, unspecified Osteoarthritis Hearing loss Vision loss Father Heart disease Pneumonia CVA (cerebral vascular accident) Hearing loss Suicide attempt Surgical History (Updated 05/20/25 @ 21:[address] Jesus Alberto Wiggins MD) History of wisdom tooth extraction History of vasectomy History of tonsillectomy and adenoidectomy History of total hip arthroplasty History of shoulder surgery History of hernia repair History of colonoscopy History of circumcision History of cataract surgery History of cardiac catheterization Social History (Updated 05/20/25 @ 21:[address] Jesus Alberto Wiggins MD) household members: spouse Smoking Status: Former smoker alcohol intake: never substance use type: does not use ROS Constitutional Constitutional: Reports weakness; Denies chills, fever(s) or weight gain ENT HEENT: Denies headache(s), nasal congestion or nasal discharge Cardiovascular Cardiovascular: Denies chest pain or palpitations Respiratory/Chest Respiratory/Chest: Denies cough, excessive phlegm production or shortness of breath with exertion Gastrointestinal Gastrointestinal: Denies abdominal pain, nausea or vomiting Genitourinary Genitourinary: Denies dysuria Musculoskeletal Musculoskeletal: Denies joint pain or joint swelling Integumentary Integumentary: Denies rash or wounds Neurologic Neurologic: Denies focal weakness, numbness or tingling Psychiatric Psychiatric: Denies anxiety, auditory hallucinations, depression, homicidal ideation or suicidal ideation Vital Signs Vital Signs Vital Signs: 05/20/25 18:06 05/20/25 21:14 Temperature 98.0 F Temperature Source Temporal Pulse Rate 96 101 H Respiratory Rate 17 Blood Pressure 142/91 H 141/81 H Blood Pressure Mean 108 101 Blood Pressure Source Monitor Monitor Blood Pressure Position Semi-Fowlers Semi-Fowlers Blood Pressure Location Right Arm Right Arm Pulse Ox 91 Oxygen Delivery Method Room Air Weight Weight: 63.458 kg Body Mass Index (BMI) 22.6 Physical Exam Const alert General Appearance: cooperative HEENT normocephalic HEENT Narrative: Dobbhoff tube. Eyes PERRL and EOMs intact bilaterally Neck supple, no JVD and no carotid bruits Resp normal respiratory effort, normal air movement and clear to auscultation bilaterally Cardio regular rate and regular rhythm GI normal to inspection, nondistended, normoactive bowel sounds, non-tender and non-distended Extremity normal capillary refill General Extremity: Negative for edema Skin no rashes or lesions noted General Skin Exam: no breakdown Psych affect normal Appearance: appropriate Assessment & Plan Assessment/Plan (1) Debility: (2) Orbital floor fracture: (3) Orbital roof fracture: (4) SDH (subdural hematoma): (5) SAH (subarachnoid hemorrhage): (6) Bilateral pubic rami fractures: (7) Sacral fracture: (8) GERD (gastroesophageal reflux disease): (9) Essential (primary) hypertension: (10) Osteoarthritis: (11) Carotid artery stenosis: (12) Coronary artery disease: (13) TIA (transient ischemic attack): (14) BPH (benign prostatic hyperplasia): (15) Depression: (16) Hyperlipidemia: (17) Dysphagia: PLAN: Plan 89 year old male with below past medical history hospitalized for SDH, SAH, multiple traumatic fractures, complicated by dysphagia requiring dobbhoff TF, admitted to TCU with debility, here for rehabilitation, strengthening, prior to discharge home with . * Debility - PT/OT. * Dysphagia - ST, advance diet as tolerated, if unable consider PEG, patient willing. * Pain - Tylenol 650mg q6, Oxycodone 5mg q4 prn. * Bowel - Miralax 17gm daily, Senokot 1 tablet qhs. * Adult immunization - Administer pneumonia vaccine, covid vaccine, flu vaccine as appropriate. * DVT prophylaxis - Lovenox 30mg sc bid. * Hypertension - Metoprolol 25mg bid, Lisinopril 40mg daily, Amlodipine 5mg daily. * Coronary artery disease - Metoprolol 25mg bid, Lisinopril 40mg daily, Aspirin 81mg daily. * Vitamin D deficiency - D 125mcg daily. * Vitamin B12 deficiency - B12 1000mcg daily. * Inflammatory polyarthropathy - MTX 20mg qweek, Folic acid 2mg daily. * Nutrition - Jevity 1.5 50ml/hour. * GERD - Lansoprazole 30mg daily. * Macular degeneration - Healthy Eyes 1 capsule daily. * Nausea - Zofran odt 4mg q8 prn. * Hyperlipidemia - Pravastatin 40mg qhs. * BPH - Doxazosin 4mg qhs. The following psychotropic medication was present on admission: Elavil 10mg qhs. Psychotropic medication therapy is indicated for a diagnosis of: Insomnia. Based on my clinical evaluation, continuation of the medication is necessary at this time. Gradual dose reduction plan (select one): ____ GDR will be attempted. Will monitor patient symptoms and behaviors in response to GDR. __x__ GRD contraindicated. 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 The following psychotropic medication was present on admission: Lexapro 5mg daily. Psychotropic medication therapy is indicated for a diagnosis of: Depression. Based on my clinical evaluation, continuation of the medication is necessary at this time. Gradual dose reduction plan (select one): ____ GDR will be attempted. Will monitor patient symptoms and behaviors in response to GDR. __x__ GRD contraindicated. 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 05/20/259 Cosigner Signature (if applicable): CC: Dr. Devan aBrrera MD; Dr. Jesus Alberto Wiggins MD~ Signed ADDENDUM by Dr. Jesus Alberto Wiggins MD on 05/22/25 at 1347 Addendum Malnutrition - consult dietary. 05/22/25 1347 Cosigner Signature (if applicable): cc: Dr. Devan Barrera MD; Dr. Jesus Alberto Wiggins MD ~* Signed ADDENDUM by Dr. Jesus Alberto Wiggins MD on 05/26/25 at 1713 Addendum Resident hypoxic after PEG placement, oxygen 4 liters per nasal cannula. Aspiration pneumonia - PE ruled out, Unasyn 3gm iv q6 x 7 days. Acute respiratory failure with hypoxia - Wean oxygen as tolerated, oxygen down to 2 liters per nasal cannula. Congestion - Medrol dose pack. Wheezing - Duoneb 3ml q6wart, Albuterol 2.5mg neb q2h prn. 05/26/25 1713 Cosigner Signature (if applicable): cc: Dr. Devan Barrera MD; Dr. Jesus Alberto Wiggins MD ~* Signed ADDENDUM by Dr. Jesus Alberto Wiggins MD on 05/27/25 at 1718 Addendum Rash - Hytone cream topical bid prn. 05/27/251717 Cosigner Signature (if applicable): cc: Dr. Devan Barrera MD; Dr. Jesus Alberto Wiggins MD ~* Signed ADDENDUM by Dr. Jesus Alberto Wiggins MD on 06/02/25 at 1718 Addendum 05/26/2025 Edema - Lasix 20mg IV x 1 dose given. 06/02/251717 Cosigner Signature (if applicable): cc: Dr. Devan Barrera MD; Dr. Jesus Alberto Wiggins MD ~* Signed [facility]08-06-2025 Radiology Diagnostic study note [facility] Imaging Services [address] [place] [address] Chest PA and Lateral MR#: [id number] Acct: [id number] Name: FAWN CAMERON Rep #: [id number] : 1935 M 89 From: Omero Herrera MD PCP: Dr. Devan Barrera MD Status: AD M IN Study:Chest PA and Lateral Date of Exam: 05/27/25 Exam# [id number] Ordering Dr: Jesus Alberto Wiggins MD PROCEDURE: CHEST PA AND LATERAL 05/27/2025 REASON FOR EXAM: ASPIRATION PNEUMONIA. TECHNIQUE: CHEST PA AND LATERAL COMPARISON: AP chest of 05/26/2025 RAD/Chest PA and Lateral IMPRESSION: PNEUMOPERITONEUM is present. No evidence of pulmonary edema. No focal infiltrate is seen. A small right pleural effusion is noted. No left pleural effusion is seen. No pneumothorax is evident. Cardiomediastinal silhouette is stable, without evidence of cardiomegaly. No interval osseous changes noted. Reading Location: [place] [address] CC: Dr. Devan Barrera MD; Dr. Jesus Alberto Wiggins MD ~ Game Designer: Signed [facility]08-05-2025 Consult note Author Benigno Bateman [facility] Note Date/Time May 26, 2025 12: 28pm [facility] Medical Records Department [address] [place] [address] Anesthesia Postop Eval II 05/26/25 1226 MR#: [id number] Acct: [id number] Name: FAWN CAMERON Rep #:[id number] : 1935 89 From: Benigno Baptiste PCP: Dr. Devan Barrera MD Status:RE G SDC Y Race: C Location: [place] [address] Anesthesia Postop Eval I Sum Postop Eval Completion status Anesthesia document: Postop Eval 1 completed: Yes Anesthesia Postop Eval I Summary Anesthesia Postop Eval I Summary: Anesthesia Postop Eval I: Assessment Summary 3 Airway patent Yes 05/26/25 08:15 HIDE [email or web address] Spontaneous unlabored Yes 05/26/25 08:15 HIDE [email or web address] respirations Mental status nausea No 05/26/25 08:15 HIDE [email or web address].TNES Vomiting No 05/26/25 08:15 HIDE [email or web address].[email or web address] Anesthesia Postop Eval I: Fluid Summary Crystalloid volume administer 500 05/26/25 08:15 HIDE [email or web address].TNES (ml) Colloids volume administered ( ml) Blood Product volume administered (ml) Total IV fluid infused 500 05/26/25 08:15 HIDE [email or web address].[email or web address] Anesthesia Postop Eval I: Summary Notes Anesthesia Complication No 05/26/25 08:15 HIDE [email or web address].[email or web address] Anesthesia Complication Comment: Post-operative progress note Anesthesia: Postop Eval II Evaluation Mental status: Awake and Calm Pain Level: 1 nausea: No Vomiting: No Progress Note Post-operative progress note: In PACU requiring oxygen via nasal cannula 2 to 4 L to maintain saturation 90 to 92%. Respiratory effort at baseline. Rhonchi onauscultation bilateral. I spoke over the phone with his primary care physician Dr. Wiggins. Will be going from PACU to transitional care where he came from. agreed to do a chest x-ray and labs and follow-up. We discussed in detail the deconditioning of the patient and the need for close follow-up. Dr. Wiggins accepted the care and follow- up for the patient Complications Anesthesia Complication: No 05/26/25 1228 <Electronically signed by Benigno Bateman MD> Date _ Benigno Bateman MD Cosigner Signature: Date CC: ~ Signed [facility] Work Phone: [phone]) 290-922208-05-2025 Consult note [facility] Medical Records Department [address] [place] [address] Anesthesia Postop Eval II 05/26/25 1226 MR#: [id number] Acct: [id number] Name: FAWN CAMERON Rep #:[id number] : 1935 89 From: Benigno Baptiste PCP: Dr. Devan Barrera MD Status:RE G [facility] [place] Race: C Location: [place] [address] Anesthesia Postop Eval I Sum Postop Eval Completion status Anesthesia document: Postop Eval 1 completed: Yes Anesthesia Postop Eval I Summary Anesthesia Postop Eval I Summary: Anesthesia Postop Eval I: Assessment Summary 3 Airway patent Yes 05/26/25 08:15 HIDE [email or web address] Spontaneous unlabored Yes 05/26/25 08:15 HIDE [email or web address] respirations Mental status nausea No 05/26/25 08:15 HIDE [email or web address].TNES Vomiting No 05/26/25 08:15 HIDE [email or web address].[email or web address] Anesthesia Postop Eval I: Fluid Summary Crystalloid volume administer 500 05/26/25 08:15 HIDE [email or web address].TNES (ml) Colloids volume administered ( ml) Blood Product volume administered (ml) Total IV fluid infused 500 05/26/25 08:15 HIDE [email or web address].[email or web address] Anesthesia Postop Eval I: Summary Notes Anesthesia Complication No 05/26/25 08:15 HIDE [email or web address].[email or web address] Anesthesia Complication Comment: Post-operative progress note Anesthesia: Postop Eval II Evaluation Mental status: Awake and Calm Pain Level: 1 nausea: No Vomiting: No Progress Note Post-operative progress note: In PACU requiring oxygen via nasal cannula 2 to 4 L to maintain saturation 90 to 92%. Respiratory effort at baseline. Rhonchi onauscultation bilateral. I spoke over the phone with his primary care physician Dr. Wiggins. Will be going from PACU to transitional care where he came from. agreed to do a chest x-ray and labs and follow-up. We discussed in detail the deconditioning of the patient and the need for close follow-up. Dr. Wiggins accepted the care and follow-up for the patient Complications Anesthesia Complication: No 05/26/25 1228 MD> Date _ Benigno Bateman MD Cosigner Signature: Date CC: ~ Signed [facility]08-05-2025 Radiology Diagnostic study note [facility] Imaging Services [address] [place] [address] CTA Chest W/WO Contrast MR#: [id number] Acct: [id number] Name: FAWN CAMERON Rep #: [id number] : 1935 M 89 From: Breanna Fletcher MD PCP: Dr. Devan Barrera MD Status: RE G CLI Study:CTA Chest W/WO Contrast Date of Exam: 05/26/25 Exam# [id number] Ordering Dr: Jesus Alberto Wiggins MD PROCEDURE: CTA CHEST W/WO CONTRAST 05/26/2025 REASON FOR EXAM: R/O PE TECHNIQUE: CTA CHEST W/WO CONTRAST Multiplanar Sagittal and Coronal images were obtained. CONTRAST: Isovue 370 VOLUME: 100 mL One or more dose reduction techniques were used (e.g., Automated exposure control, adjustment of the mA and/or kV according to patient size, use of iterative reconstruction technique). RADIATION DOSE SUMMARY: CTDlvol: 442.06 mGy DLP: 16.25 mGycm COMPARISON: None. FINDINGS: Lower neck: The thyroid gland is normal. There is no supraclavicular lymphadenopathy. Mediastinum: No abnormal masses or lymphadenopathy. Heart/thoracic aorta: The heart size is normal. There is no pericardial effusion. There is moderatecalcific vascular disease of the thoracic aorta and coronary arteries. There is no thoracic aortic aneurysm or aortic dissection. RV/LV Diameter Ratio: Normal. Pulmonary Vessels: There are no pulmonary emboli. The main pulmonary artery is normal in diameter. Esophagus: There is a small hiatal hernia. Upper Abdomen: There is calcific vascular disease of the visualized abdominal aorta. There is an infrarenal abdominal aortic aneurysm measuring 3.6 cm in AP dimension and 4.8 cm in transverse dimension. Only the proximal endof the aneurysm was imaged. The aneurysm has apparent saccular and fusiform components. 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 There is moderate dextroscoliosis of the thoracolumbar spine. The soft tissues of thechest wall are unremarkable. Airways, lungs and pleura: There is mild upper lobe predominant paraseptal emphysema. There is a linear scar in the superior segment of the lower lobe of the right lung. There is bilateral lower lobe bronchiectasis with pleural-based scarring or atelectasis in the posterior basilar segments of both lower lobes. There are small bilateral pleural effusions. CT/CTA Chest W/WO Contrast IMPRESSION: 1. No evidence of pulmonary emboli. 2. Airspace disease in both lung bases consistent with atelectasis or scarring. There are small bilateral pleural effusions. 3. Calcific vascular disease of the thoracoabdominal aorta and coronary arteries. There is an infrarenal abdominal aortic aneurysm. 4. Other findings as noted. Reading Location: [id number] CC: Dr. Devan Barrera MD; Dr. Jesus Alberto Wiggins MD ~ Game Designer: Signed [facility] Work Phone: [phone] 312-743908-05-2025 Radiology Diagnostic study note [facility] Imaging Services [address] [place] [address] Chest PA and Lateral MR#: [id number] Acct: [id number] Name: FAWN CAMERON Rep #: [id number] : 1935 M 89 From: Luis Roman MD PCP: Dr. Devan Barrera MD Status: AD M IN Study:Chest PA and Lateral Date of Exam: 05/26/25 Exam# [id number] Ordering Dr: Jesus Alberto Wiggins MD PROCEDURE: CHEST PA AND LATERAL 05/26/2025 REASON FOR EXAM: CONGESTION, COUGH, SOB TECHNIQUE: CHEST PA AND LATERAL COMPARISON: Prior study dated May 21, 2025. FINDINGS: Hardware: The patient is status post left reverse shoulder replacement. Heart: The heart size is normal. Mediastinum: The mediastinal contour is unremarkable. Lungs: The lungs are clear. Blunting of the posterior costophrenic angles. Bones: Degenerative changes are identified within the thoracic spine. Osteoarthritis of the right glenohumeral joint. RAD/Chest PA and Lateral IMPRESSION: No acute infiltrate is seen. Blunting of the posterior costophrenic angles bilaterally. Reading Location: [id number] CC: Dr. Devan Barrera MD; Dr. Jesus Alberto Wiggins MD ~ Game Designer: Signed [facility]08-05-2025 Consult note Author Karri Bermudezbitt [facility] Note Date/Time May 26, 2025 8:1 5am [facility] Medical Records Department [address] [place] [address] Anesthesia Postop Eval I 05/26/25 0814 MR#: [id number] Acct: [id number] Name: FAWN CAMERON Rep #:[id number] : 1935 89 From: Karri CANDELARIA PCP: Dr. Devan Barrera MD Status:RE G SDC Y Race: C Location: [place] [address] Anesthesia: Postop Eval I Current Vital Signs Temperature: 98 F Pulse Rate: 85 Blood Pressure: 92/72 Respiratory Rate: 18 Pulse Ox: 96 Assessment Airway patent: Yes Spontaneous unlabored respirations: Yes nausea: No Vomiting: No Anesthesia Complication: No Fluid Hydration Crystalloid volume administer (ml): 500 Total IV fluid infused: 500 Progress Note Anesthesia document: Postop Eval 1 completed: Yes 05/26/2515 <Electronically signed by Karri Howell CRNA> Date _ Karri Howell HIDE BUYER Cosigner Signature: Date CC: ~ Signed [facility] Work Phone: [phone]) 390-828008-05-2025 Consult note Author Benigno Bateman [facility] Note Date/Time May 26, 2025 7:0 6am [facility] Medical Records Department [address] [place] [address] Pre-Anesthesia Evaluation 05/26/2504 MR#: [id number] Acct: [id number] Name: FAWN CAMERON Rep #:[id number] : 1935 89 From: Benigno Baptiste PCP: Dr. Devan Barrera MD Status:[facility] Y Race: C Location: [place] [address] ASA Classification* ASA Classification ASA Classification: 3 Assessment & Plan Anesthesia* Anesthesia Assessment Anesthesia Assessment: Discussed sedation and/or anesthesia options, risks, benefits, and alternatives with patient/parents/legal guardian/POA. Questions invited. The patient/parents/legal guardian/POA seems to understand and agrees to proceedwith anesthesia plan. Reviewed the physical assessment, medical history, allergy history and patient home medications list prior to surgery/procedure/anesthetic and documented any changes. Performed airway and anesthesia risk assessments. Anesthesia Type Anesthesia Type: General and MAC History Source History Obtained from:: Patient, Chart, Parent/ Guardian and - (I discussed in detail with and daughter the risks of anesthesia with the procedure and possibility of aspiration) Anesthesia Focused Assessment* Temperature: 99.0 F Pulse Rate: 72 Blood Pressure: 107/56 Respiratory Rate: 18 Pulse Ox: 96 Oxygen Delivery Method: Room Air Airway Assessment Mouth opens: >3 cm Mallampati Score: II Teeth Condition: Chipped/Broken Neck Range of motion (ROM): Limited ROM Labs Anesthesia Preop lab: CBC WBC 12.5 K/mm3 (4.4-11.0) H 05/21/25 05:17 5 RBC 3.29 M/mm3 (4.6-6.2) L 05/21/25 05:17 05/21/25 Hgb 10.9 g/dL (13.0-16.5) L 05/21/25 05:17 5 Hct 33.7 % (40-54) L 05/21/25 05:17 05/21/25 Plt Count 442 K/mm3 (150-450) 05/21/25 05:17 05/21/25 CHEMISTRY Potassium 3.8 mmol/L (3.3-5.1) 05/24/25 06:45 05/24/25 Sodium 132 mmol/L (133-145) L 05/24/25 06:45 05/24/25 BUN 39 mg/dL (4-19) H 05/24/25 06:45 05/24/25 Creatinine 0.78 mg/dL (0.70-1.20) 05/24/25 06:45 05/24/25 Glucose 136 mg/dL (70-99) H 05/24/25 06:45 05/24/25 POC Glucose 128 mg/dL (74-106) H 05/26/25 05:41 05/26/25 COAG Pre-Assessment Diagnosis/Proposed Procedure Planned Operative Procedure(s): EGD, PEG Anesthesia History Anesthesia History - thermostat maker: Anesthesia History - thermostat maker Hx Hospitalization Any Problems With Anesthesia Cholinesterase deficiency You/Your Family Experience fever (hyperthermia) with Relationship Recent Exposure to Contagious No 05/26/25 06:17 Disease Does patient have nerve stimulator Patient instructed to have device shut off --Does patient have Pacemaker or ICD? When Was Last Pacemaker Check QUESTION #4 FULL TEXT: You/Your Family Experience fever (hyperthermia) with Anesthesia Last Oral Intake Last Oral intake: Last Oral Intake NPO since Meds taken in AM with sips of water? Meds patient instructed to unknown, from TCU 05/26/25 06:17 take am of surgery PONV PONV - thermostat maker: PONV - thermostat maker Female HX of Motion Sickness HX of N/V After Surgery Non-Smoker Duration of Surgery greater than 60 minutes Number of Risk Factors PONV Score Height & Weight Height & Weight: Anesthesia: Height & Weight Height 5 ft 6 in 05/26/25 06:17 Weight: 66.075 kg 05/26/25 06:17 Body Mass Index (BMI) 23.5 05/26/25 06:17 Respiratory Assessment Respiratory Assessment - thermostat maker: Respiratory Tract Infection Hx - thermostat maker Hx Respiratory Tract Infection STOP Sleep Apnea STOP Sleep Apnea - thermostat maker: STOP Sleep Apnea - thermostat maker Hx Hypertension Yes 05/21/25 12:18 Hx Sleep Apnea Yes 05/20/25 18:06 CPAP Yes: states he does not use 05/20/25 18:06 at home but has one BIPAP No 05/20/25 18:06 Do you snore loudly (louder than talking or can be heard Do you often feel tired/ fatigued/ sleepy during daytime? Has anyone observed you stop breathing during sleep? STOP Results QUESTION #5 FULL TEXT : Do you snore loudly (louder than talking or can be heard through closed doors)? Tobacco Use History Tobacco Use History - thermostat maker: Tobacco Use History - thermostat maker Tobacco Use Smoking Status Former smoker 05/20/25 21:46 Hx Tobacco Use No 05/20/25 18:06 Years Smoking Packs Smoked per Day Smoking Cessation Date was within the last 15 years Hx Smoking Cessation Date Hx Smoking Cessation No 05/20/25 18:06 Counseling Hematologic Medial History Hematologic Hx - thermostat maker: Hematologic Medical Hx - protocol manager Hx of Blood Transfusion Hx of Transfusion in last 3 Months Date of Last Transfusion (if within last 3 months) Ever experience any problems with transfusion(s)? Specify any problems Hx of Preganancy in last 3 Months Nurse Filling Out Transfusion & Questions: Date: Time: Patient unable to answer at this time (ie. confused, unrespo /Reproduction History /Reproductive History - thermostat maker: /Reproductive Hx- thermostat maker Hx Now Gestational Age (in weeks): EDC: Hx Hx Para Hx Section SAB Active Medications Active Medications: Current Medications Generic Name Dose Route Start Last Admin Trade Name Freq PRN Reason Stop Dose Admin Lactated Ringer's 1,000 mls @ 15 mls/hr 05/26/25 06:00 05/26/25 06:37 IV 15 mls/hr .Q48H SILVANO Administration Cefazolin Sodium 2 gm/ Sodium 110 mls @ 200 mls/hr 05/26/25 06:45 Chloride IV 05/26/25 07:17 X1 ONE PFSH Medical History Dysphagia Hyperlipidemia Depression BPH (benign prostatic hyperplasia) TIA (transient ischemic attack) Coronary artery disease Carotid artery stenosis Osteoarthritis Essential (primary) hypertension GERD (gastroesophageal reflux disease) Sacral fracture Bilateral pubic rami fractures SAH (subarachnoid hemorrhage) SDH (subdural hematoma) Orbital roof fracture Orbital floor fracture Debility Home Medications ?Medication ?Instructions ?Recorded ?Last Taken ?Type acetaminophen 325 mg capsule 650 mg feeding tube Q6H P ain 05/20/25 05/20/25 10:20 History alfuzosin 10 mg tablet,extended 10 mg PO DAILY BPH Unknown History release 24 hr amitriptyline 10 mg tablet 10 mg feeding tube QHS Mood 05/20/25 Unknown History amlodipine 5 mg tablet 5 mg feeding tube DAILY BP 0 05/20/25 Unknown History aspirin 81 mg tablet 81 mg PO DAILY Heart 5 Unknown History benazepril 40 mg tablet 40 mg feeding tube DAILY BP 05/20/25 Unknown History bisacodyl 5 mg tablet 5 mg PO DAILY PRN constipati on 05/20/25 Unknown History cholecalciferol (vitamin D3) 125 125 mcg feeding tube DAILY 05/20/25 05/20/25 10:20 History mcg (5,000 unit) tablet Supplement cyanocobalamin (vitamin B-12) 1,000 mcg PO DAILY Suppl ement 05/20/25 05/20/25 10:25 History 1,000 mcg capsule enoxaparin 30 mg/0.3 mL 30 mg subcut Q12H DVT prophy laxis 05/20/25 05/20/25 12:30 History subcutaneous syringe escitalopram oxalate 5 mg tablet 5 mg feeding tube SID LY Mood 05/20/25 Unknown History folic acid 1 mg tablet 2 mg feeding tube DAILY Supp lement 05/20/25 Unknown History methotrexate sodium 5 mg tablet 20 mg feeding tube QWE EK Arthritis 05/20/25 Unknown History (Trexall) metoprolol tartrate 25 mg tablet 25 mg feeding tube BI D BP 05/20/25 Unknown History omeprazole 40 mg capsule,delayed 40 mg PO DAILY GERD 0 05/20/25 Unknown History release ondansetron HCl 4 mg tablet 4 mg feeding tube Q8H PRN nausea 05/20/25 Unknown History and vomiting oxycodone 5 mg tablet 5 mg feeding tube Q4H PRN pa in 05/20/25 Unknown History (scale score 7-10) pantoprazole 40 mg tablet,delayed 40 mg PO DAILY GERD 05/20/25 Unknown History release polyethylene glycol 3350 17 17 g feeding tube DAILY Unknown History gram/dose oral powder (Miralax) Constipation pravastatin 40 mg tablet 40 mg feeding tube QHS Vivian sterol 05/20/25 Unknown History sennosides 8.6 mg tablet (Senokot) 8.6 mg PO QHS Const ipation 05/20/25 Unknown History vitamins A,C,Z-ifdj-rylqcz 4,296 1 cap PO DAILY Eye Vi tamin 05/20/25 Unknown History mcg-226 mg-90 mg capsule (Healthy Eyes SuperVision) doxazosin 4 mg tablet (Cardura) 4 mg PO QHS 05/25/25 U nknown History lactose-reduced food-fiber 0.07 See Rx Instructions fe eding tube 05/25/25 Unknown History gram-1.5 kcal/mL liquid for tube .COMPLEX feed (Isosource 1.5 Randy) menthol 0.44 %-zinc oxide 20.6 % 1 applic topical BID 05/25/25 Unknown History topical ointment (CalaSoothe) Allergy/AdvReac Type Severity Reaction Status Date / Time No Known Allergies Allergy Verified 05/20/25 19:39 Family History Mother Hypertension Hyperlipidemia, unspecified Osteoarthritis Hearing loss Vision loss Father Heart disease Pneumonia CVA (cerebral vascular accident) Hearing loss Suicide attempt Surgical History History of wisdom tooth extraction History of vasectomy History of tonsillectomy and adenoidectomy History of total hip arthroplasty History of shoulder surgery History of hernia repair History of colonoscopy History of circumcision History of cataract surgery History of cardiac catheterization Social History household members: spouse Smoking Status: Former smoker alcohol intake: never substance use type: does not use Review of Systems (Anesthesia) ROS Narrative System reviewed and no additional complaints, except as documented. 05/26/25 0706 <Electronically signed by Benigno Bateman MD> Date _ Benigno Bateman MD Cosigner Signature: Date CC: ~ Signed [facility] Work Phone: [phone]) 884-904008-05-2025 History and physical note Author Stan Ferrara [facility] Note Date/Time May 26, 2025 6:4 5am [facility] Medical Records Department [address] [place] [address] History & Physical Exam 05/26/25 0644 MR#: [id number] Acct: [id number] Name: FAWN CAMERON Rep #:[id number] : 1935 89 From: Stan Ferrara DO PCP: Dr. Devan Barrera MD Status:[facility] Location: [place] [address] HPI - General General Date of Admission: 05/26/25 Date of Service: 05/26/25 Chief Complaint: Dysphagia HPI Narrative 89 year old male with below past medical history hospitalized for SDH, SAH, multiple traumatic fractures, complicated by dysphagia requiring dobbhoff TF, admitted to TCU with debility. I was consulted to see him due to his inability to swallow safely and need for placement of PEG tube. [facility] Medical History Dysphagia Hyperlipidemia Depression BPH (benign prostatic hyperplasia) TIA (transient ischemic attack) Coronary artery disease Carotid artery stenosis Osteoarthritis Essential (primary) hypertension GERD (gastroesophageal reflux disease) Sacral fracture Bilateral pubic rami fractures SAH (subarachnoid hemorrhage) SDH (subdural hematoma) Orbital roof fracture Orbital floor fracture Debility Home Medications ?Medication ?Instructions ?Recorded ?Last Taken ?Type acetaminophen 325 mg capsule 650 mg feeding tube Q6H P ain 05/20/25 05/20/25 10:20 History alfuzosin 10 mg tablet,extended 10 mg PO DAILY BPH Unknown History release 24 hr amitriptyline 10 mg tablet 10 mg feeding tube QHS Mood 05/20/25 Unknown History amlodipine 5 mg tablet 5 mg feeding tube DAILY BP 0 05/20/25 Unknown History aspirin 81 mg tablet 81 mg PO DAILY Heart 5 Unknown History benazepril 40 mg tablet 40 mg feeding tube DAILY BP 05/20/25 Unknown History bisacodyl 5 mg tablet 5 mg PO DAILY PRN constipati on 05/20/25 Unknown History cholecalciferol (vitamin D3) 125 125 mcg feeding tube DAILY 05/20/25 05/20/25 10:20 History mcg (5,000 unit) tablet Supplement cyanocobalamin (vitamin B-12) 1,000 mcg PO DAILY Suppl ement 05/20/25 05/20/25 10:25 History 1,000 mcg capsule enoxaparin 30 mg/0.3 mL 30 mg subcut Q12H DVT prophy laxis 05/20/25 05/20/25 12:30 History subcutaneous syringe escitalopram oxalate 5 mg tablet 5 mg feeding tube SID LY Mood 05/20/25 Unknown History folic acid 1 mg tablet 2 mg feeding tube DAILY Supp lement 05/20/25 Unknown History methotrexate sodium 5 mg tablet 20 mg feeding tube QWE EK Arthritis 05/20/25 Unknown History (Trexall) metoprolol tartrate 25 mg tablet 25 mg feeding tube BI D BP 05/20/25 Unknown History omeprazole 40 mg capsule,delayed 40 mg PO DAILY GERD 0 05/20/25 Unknown History release ondansetron HCl 4 mg tablet 4 mg feeding tube Q8H PRN nausea 05/20/25 Unknown History and vomiting oxycodone 5 mg tablet 5 mg feeding tube Q4H PRN pa in 05/20/25 Unknown History (scale score 7-10) pantoprazole 40 mg tablet,delayed 40 mg PO DAILY GERD 05/20/25 Unknown History release polyethylene glycol 3350 17 17 g feeding tube DAILY Unknown History gram/dose oral powder (Miralax) Constipation pravastatin 40 mg tablet 40 mg feeding tube QHS Vivian sterol 05/20/25 Unknown History sennosides 8.6 mg tablet (Senokot) 8.6 mg PO QHS Const ipation 05/20/25 Unknown History vitamins A,C,U-ahbn-bqxzsa 4,296 1 cap PO DAILY Eye Vi tamin 05/20/25 Unknown History mcg-226 mg-90 mg capsule (Healthy Eyes SuperVision) doxazosin 4 mg tablet (Cardura) 4 mg PO QHS 05/25/25 U nknown History lactose-reduced food-fiber 0.07 See Rx Instructions fe eding tube 05/25/25 Unknown History gram-1.5 kcal/mL liquid for tube .COMPLEX feed (Isosource 1.5 Randy) menthol 0.44 %-zinc oxide 20.6 % 1 applic topical BID 05/25/25 Unknown History topical ointment (CalaSoothe) Allergy/AdvReac Type Severity Reaction Status Date / Time No Known Allergies Allergy Verified 05/20/25 19:39 Family History Mother Hypertension Hyperlipidemia, unspecified Osteoarthritis Hearing loss Vision loss Father Heart disease Pneumonia CVA (cerebral vascular accident) Hearing loss Suicide attempt Surgical History History of wisdom tooth extraction History of vasectomy History of tonsillectomy and adenoidectomy History of total hip arthroplasty History of shoulder surgery History of hernia repair History of colonoscopy History of circumcision History of cataract surgery History of cardiac catheterization Social History household members: spouse Smoking Status: Former smoker alcohol intake: never substance use type: does not use ROS Constitutional Constitutional: Denies fatigue, fever(s), poor appetite, weight gain or weight loss Gastrointestinal Gastrointestinal: Denies belching, bloating, change in bowel habits, change in stool character, chewing difficulty, coffee ground emesis, constipation, cramping, diarrhea, dyspepsia, dysphagia, early satiety, excessive flatus, fecalincontinence, heartburn, hematemesis, hematochezia, hemorrhoids, loose stools, melena, nausea, odynophagia, rectal bleeding, tenesmus, vomiting or weight changes Vital Signs Vital Signs Vital Signs: 05/26/25 06:17 05/26/25 06:17 Temperature 99.0 F Temperature Source Temporal Pulse Rate 72 Respiratory Rate 18 Respiratory Pattern Normal Blood Pressure 107/56 L Blood Pressure Mean 73 Blood Pressure Source Monitor Blood Pressure Position Semi-Fowlers Blood Pressure Location Left Arm Pulse Ox 96 Oxygen Delivery Method Room Air Weight Weight: 145 lb 10.724 oz Body Mass Index (BMI) 23.5 Physical Exam Const alert, oriented x3, no apparent distress and healthy appearing General Appearance: cooperative GI normal to inspection, nondistended, normoactive bowel sounds, soft to palpation,non-tender and non-distended Percussion: normal to percussion Rectal Exam: deferred Assessment & Plan Assessment/Plan (1) Dysphagia: PLAN: 89 year old male with below past medical history hospitalized for SDH, SAH, multiple traumatic fractures, complicated by dysphagia requiring dobbhoff TF, admitted to TCU with debility. He will undergo PEG tube placement. He was explained alternatives, risk and benefits clinical withstanding bleeding, infection, sepsis, perforation, need for surgery and . He will have an ASAof 3. 05/26/25 0645 <Electronically signed by Stan Ferrara DO> Cosigner Signature (if applicable): CC: Dr. Devan Barrera MD; Stan Ferrara DO~ Signed [facility] Work Phone: [phone]) 478-540708-05-2025 Consult note [facility] Medical Records Department [address] [place] [address] Anesthesia Postop Eval I 05/26/25 0814 MR#: [id number] Acct: [id number] Name: FAWN CAMERON Rep #:[id number] : 1935 89 From: Karri CANDELARIA PCP: Dr. Devan Barrear MD Status: [place] [facility] [place] Race: C Location: [place] [address] Anesthesia: Postop Eval I Current Vital Signs Temperature: 98 F Pulse Rate: 85 Blood Pressure: 92/72 Respiratory Rate: 18 Pulse Ox: 96 Assessment Airway patent: Yes Spontaneous unlabored respirations: Yes nausea: No Vomiting: No Anesthesia Complication: No Fluid Hydration Crystalloid volume administer (ml): 500 Total IV fluid infused: 500 Progress Note Anesthesia document: Postop Eval 1 completed: Yes 05/26/25 0815 HIDE BUYER> Date _ Karri Bermudezbitt HIDE BUYER Cosigner Signature: Date CC: ~ Signed [facility]08-05-2025 Procedure note [facility] Medical Records Department [address] [place] [address] EGD Report MR#: [id number] Acct: [id number] Name: FAWN CAMERON Rep #:[id number] : 1935 89 From: Stan Ferrara DO PCP: Dr. Devan Barrera MD Status:EVA Olivier [facility] Patient Name: Fawn Cameron Procedure Date: 05/26/2025 7:08 AM Date of : 1935 Age: 89 Procedure: Upper GI endoscopy Indications: Dysphagia Providers: Stan Ferrara DO Medicines: Monitored Anesthesia Care Patient Profile: This is an 89 year old male. Refer to note in patient chart for documentation of history and physical. Patient has symptoms of dysphagia with both liquids and solids. Complications: No immediate complications. Procedure: Pre-Anesthesia Assessment: - Prior to the procedure, a History and Physical was performed, and patient medications and allergies were reviewed. The patient is competent. The risks and benefits of the procedure and the sedation options and risks were discussed with the patient. All questions were answered and informed consent was obtained. Patient identification and proposed procedure were verified by the physician in the pre-procedure area. Mental Status Examination: alert and oriented. Airway Examination: normal oropharyngeal airway and neck mobility. Respiratory Examination: clear to auscultation. CV Examination: normal. Prophylactic Antibiotics: The patient does not require prophylactic antibiotics. Prior Anticoagulants: The patient has taken no anticoagulant or antiplatelet agents. ASA Grade Assessment: II - A patient with mild systemic disease. After reviewing the risks and benefits, the patient was deemed in satisfactory condition to undergo the procedure. The anesthesia plan was to use monitored anesthesia care (MAC). Immediately prior to administration of medications, the patient was re-assessed for adequacy to receive sedatives. The heart rate, respiratory rate, oxygen saturations, blood pressure, adequacy of pulmonary ventilation, and response to care were monitored throughout the procedure. The physical status of the patient was re-assessed after the procedure. After obtaining informed consent, the endoscope was passed under direct vision. Throughout the procedure, the patient's blood pressure, pulse, and oxygen saturations were monitored continuously. The Endoscope was introduced through the mouth, and advanced to the second part of duodenum. The upper GI endoscopy was accomplished without difficulty. The patient tolerated the procedure well. Scope In: 7:33:35 AM Scope Out: 7:45:09 AM Total Procedure Duration Time 0 hours 11 minutes 34 seconds Findings: The examined esophagus was normal. Localized moderate inflammation characterized by erythema was found in the gastric body. The patient was placed in the supine position for PEG placement. The stomach was insufflated to appose gastric and abdominal hui. A site was located in the body of the stomach with excellent transillumination for placement. The abdominal wall was marked and prepped in a sterile manner. The area was anesthetized with 1 mL of 0.5% lidocaine. The trocar needle was introduced through the abdominal wall and into the stomach under direct endoscopic view. A snare was introduced through the endoscope and opened in the gastric lumen. The guide wire was passed through the trocar and into the open snare. The snare was closed around the guide wire. The endoscope and snare were removed, pulling the wire out through the mouth. A skin incision was made at the site of needle insertion. The endoscopically removable 20 Fr EndoVive Safety gastrostomy tube was lubricated. The G-tube was tied to the guide wire and pulled through the mouth and into the stomach. The trocar needle was removed, and the gastrostomy tube was pulled out from the stomach through the skin. The external bumper was attached to the gastrostomy tube, and the tube was cut to remove the guide wire. The final position of the gastrostomy tube was confirmed by relook endoscopy, and skin marking noted to be 4 cm at the external bumper. The final tension and compression of the abdominal wall by the PEG tube and external bumper were checked and revealed that the bumper was loose and lightly touching the skin. The feeding tube was capped, and the tube site cleaned and dressed. Estimated blood loss was minimal. No gross lesions were noted in the duodenal bulb. Impression: - Normal esophagus. - Gastritis. - No gross lesions in the duodenal bulb. - An endoscopically removable PEG placement was successfully completed. - No specimens collected. Recommendation: - Discharge patient to home. - Resume previous diet. - Continue present medications. Procedure Code(s): --- Professional --- 10071, Esophagogastroduodenoscopy, flexible, transoral; with directed placement of percutaneous gastrostomy tube CPT copyright 2021 [employer]. All rights reserved. The codes documented in this report are preliminary and upon death surveys coder review may be revised to meet current compliance requirements. Stan Ferrara DO 05/26/2025 7:51:14 AM This report has been signed electronically. Number of Addenda: 0 Note Initiated On: 05/26/2025 7:08 AM 05/26/25 0751 Date _ Stan Ferrara DO Cosigner Signature: Date (if indicated) CC: Dr. Devan Barrera MD; Stan Ferrara DO ~ Date Dictated: 05/26/25 0708 Date Transcribed: Game Designer: RF Signed [facility]08-05-2025 Procedure note [facility] Medical Records Department [address] [place] [address] Provation Physician Letter MR#: [id number] Acct: [id number] Name: FAWN CAMERON Rep #:[id number] : 1935 89 From: Stan Ferrara DO PCP: Dr. Devan Barrera MD Status:EVA KNAPP 05/26/2025 Devan Barrera Re : Upper GI endoscopy procedure for Fawn Cameron Dear Yuri This procedure was performed on Monday, May 26, 2025. My impressions and recommendations are as follows: Impressions : - Normal esophagus. - Gastritis. - No gross lesions in the duodenal bulb. - An endoscopically removable PEG placement was successfully completed. - No specimens collected. Recommendations : - Discharge patient to home. - Resume previous diet. - Continue present medications. My findings are described in the full procedure note, which is enclosed. If I can be of further assistance, please feel free to contact me at . Sincerely, Stan Ferrara DO 05/26/2025 7:51:14 AM This report has been signed electronically. 05/26/25 0751 Date _ Stan Ferrara DO Cosigner Signature: Date (if indicated) CC: Dr. Devan Barrera MD; Stan Ferrara DO ~ Date Dictated: 05/26/2508 Date Transcribed: Game Designer: RF Signed [facility]08-05-2025 Consult note [facility] Medical Records Department [address] [place] [id number] Pre-Anesthesia Evaluation 05/26/25 07 MR#: [id number] Acct: [id number] Name: FAWN CAMERON Rep #:[id number] : 1935 89 From: Benigno Baptiste PCP: Dr. Devan Barrera MD Status:EVA KNAPP Y Race: C Location: [place] [address] ASA Classification* ASA Classification ASA Classification: 3 Assessment & Plan Anesthesia* Anesthesia Assessment Anesthesia Assessment: Discussed sedation and/or anesthesia options, risks, benefits, and alternatives with patient/parents/legal guardian/POA. Questions invited. The patient/parents/legal guardian/POA seems to understand and agrees to proceedwith anesthesia plan. Reviewed the physical assessment, medical history, allergy history and patient home medications list prior to surgery/procedure/anesthetic and documented any changes. Performed airway and anesthesia risk assessments. Anesthesia Type Anesthesia Type: General and MAC History Source History Obtained from:: Patient, Chart, Parent/ Guardian and - (I discussed in detail with anddaughter the risks of anesthesia with the procedure and possibility of aspiration) Anesthesia Focused Assessment* Temperature: 99.0 F Pulse Rate: 72 Blood Pressure: 107/56 Respiratory Rate: 18 Pulse Ox: 96 Oxygen Delivery Method: Room Air Airway Assessment Mouth opens: >3 cm Mallampati Score: II Teeth Condition: Chipped/Broken Neck Range of motion (ROM): Limited ROM Labs Anesthesia Preop lab: CBC WBC 12.5 K/mm3 (4.4-11.0) H 05/21/25 05:17 5 RBC 3.29 M/mm3 (4.6-6.2) L 05/21/25 05:17 05/21/25 Hgb 10.9 g/dL (13.0-16.5) L 05/21/25 05:17 5 Hct 33.7 % (40-54) L 05/21/25 05:17 05/21/25 Plt Count 442 K/mm3 (150-450) 05/21/25 05:17 05/21/25 CHEMISTRY Potassium 3.8 mmol/L (3.3-5.1) 05/24/25 06:45 05/24/25 Sodium 132 mmol/L (133-145) L 05/24/25 06:45 05/24/25 BUN 39 mg/dL (4-19) H 05/24/25 06:45 05/24/25 Creatinine 0.78 mg/dL (0.70-1.20) 05/24/25 06:45 05/24/25 Glucose 136 mg/dL (70-99) H 05/24/25 06:45 05/24/25 POC Glucose 128 mg/dL (74-106) H 05/26/25 05:41 05/26/25 COAG Pre-Assessment Diagnosis/Proposed Procedure Planned Operative Procedure(s): EGD, PEG Anesthesia History Anesthesia History - thermostat maker: Anesthesia History - thermostat maker Hx Hospitalization Any Problems With Anesthesia Cholinesterase deficiency You/Your Family Experience fever (hyperthermia) with Relationship Recent Exposure to Contagious No 05/26/25 06:17 Disease Does patient have nerve stimulator Patient instructed to have device shut off --Does patient have Pacemaker or ICD? When Was Last Pacemaker Check QUESTION #4 FULL TEXT: You/Your Family Experience fever (hyperthermia) with Anesthesia Last Oral Intake Last Oral intake: Last Oral Intake NPO since Meds taken in AM with sips of water? Meds patient instructed to unknown, from TCU 05/26/25 06:17 take am of surgery PONV PONV - thermostat maker: PONV - thermostat maker Female HX of Motion Sickness HX of N/V After Surgery Non-Smoker Duration of Surgery greater than 60 minutes Number of Risk Factors PONV Score Height & Weight Height & Weight: Anesthesia: Height & Weight Height 5 ft 6 in 05/26/25 06:17 Weight: 66.075 kg 05/26/25 06:17 Body Mass Index (BMI) 23.5 05/26/25 06:17 Respiratory Assessment Respiratory Assessment - thermostat maker: Respiratory Tract Infection Hx - thermostat maker Hx Respiratory Tract Infection STOP Sleep Apnea STOP Sleep Apnea - thermostat maker: STOP Sleep Apnea - thermostat maker Hx Hypertension Yes 05/21/25 12:18 Hx Sleep Apnea Yes 05/20/25 18:06 CPAP Yes: states he does not use 05/20/25 18:06 at home but has one BIPAP No 05/20/25 18:06 Do you snore loudly (louder than talking or can be heard Do you often feel tired/ fatigued/ sleepy during daytime? Has anyone observed you stop breathing during sleep? STOP Results QUESTION #5 FULL TEXT : Do you snore loudly (louder than talking or can be heard through closeddoors)? Tobacco Use History Tobacco Use History - thermostat maker: Tobacco Use History - thermostat maker Tobacco Use Smoking Status Former smoker 05/20/25 21:46 Hx Tobacco Use No 05/20/25 18:06 Years Smoking Packs Smoked per Day Smoking Cessation Date was within the last 15 years Hx Smoking Cessation Date Hx Smoking Cessation No 05/20/25 18:06 Counseling Hematologic Medial History Hematologic Hx - thermostat maker: Hematologic Medical Hx - protocol manager Hx of Blood Transfusion Hx of Transfusion in last 3 Months Date of Last Transfusion (if within last 3 months) Ever experience any problems with transfusion(s)? Specify any problems Hx of Preganancy in last 3 Months Nurse Filling Out Transfusion & Questions: Date: Time: Patient unable to answer at this time (ie. confused, unrespo /Reproduction History /Reproductive History - thermostat maker: /Reproductive Hx- thermostat maker Hx Now Gestational Age (in weeks): EDC: Hx Hx Para Hx Section SAB Active Medications Active Medications: Current Medications Generic Name Dose Route Start Last Admin Trade Name Freq PRN Reason Stop Dose Admin Lactated Ringer's 1,000 mls @ 15 mls/hr 05/26/25 06:00 05/26/25 06:37 IV 15 mls/hr .Q48H SILVANO Administration Cefazolin Sodium 2 gm/ Sodium 110 mls @ 200 mls/hr 05/26/25 06:45 Chloride IV 05/26/25 07:17 X1 ONE PFSH Medical History Dysphagia Hyperlipidemia Depression BPH (benign prostatic hyperplasia) TIA (transient ischemic attack) Coronary artery disease Carotid artery stenosis Osteoarthritis Essential (primary) hypertension GERD (gastroesophageal reflux disease) Sacral fracture Bilateral pubic rami fractures SAH (subarachnoid hemorrhage) SDH (subdural hematoma) Orbital roof fracture Orbital floor fracture Debility Home Medications ?Medication ?Instructions ?Recorded ?Last Taken ?Type acetaminophen 325 mg capsule 650 mg feeding tube Q6H P ain 05/20/25 05/20/25 10:20 History alfuzosin 10 mg tablet,extended 10 mg PO DAILY BPH Unknown History release 24 hr amitriptyline 10 mg tablet 10 mg feeding tube QHS Mood 05/20/25 Unknown History amlodipine 5 mg tablet 5 mg feeding tube DAILY BP 0 05/20/25 Unknown History aspirin 81 mg tablet 81 mg PO DAILY Heart 5 Unknown History benazepril 40 mg tablet 40 mg feeding tube DAILY BP 05/20/25 Unknown History bisacodyl 5 mg tablet 5 mg PO DAILY PRN constipati on 05/20/25 Unknown History cholecalciferol (vitamin D3) 125 125 mcg feeding tube DAILY 05/20/25 05/20/25 10:20 History mcg (5,000 unit) tablet Supplement cyanocobalamin (vitamin B-12) 1,000 mcg PO DAILY Suppl ement 05/20/25 05/20/25 10:25 History 1,000 mcg capsule enoxaparin 30 mg/0.3 mL 30 mg subcut Q12H DVT prophy laxis 05/20/25 05/20/25 12:30 History subcutaneous syringe escitalopram oxalate 5 mg tablet 5 mg feeding tube SID LY Mood 05/20/25 Unknown History folic acid 1 mg tablet 2 mg feeding tube DAILY Supp lement 05/20/25 Unknown History methotrexate sodium 5 mg tablet 20 mg feeding tube QWE EK Arthritis 05/20/25 Unknown History (Trexall) metoprolol tartrate 25 mg tablet 25 mg feeding tube BI D BP 05/20/25 Unknown History omeprazole 40 mg capsule,delayed 40 mg PO DAILY GERD 0 05/20/25 Unknown History release ondansetron HCl 4 mg tablet 4 mg feeding tube Q8H PRN nausea 05/20/25 Unknown History and vomiting oxycodone 5 mg tablet 5 mg feeding tube Q4H PRN pa in 05/20/25 Unknown History (scale score 7-10) pantoprazole 40 mg tablet,delayed 40 mg PO DAILY GERD 05/20/25 Unknown History release polyethylene glycol 3350 17 17 g feeding tube DAILY Unknown History gram/dose oral powder (Miralax) Constipation pravastatin 40 mg tablet 40 mg feeding tube QHS Vivian sterol 05/20/25 Unknown History sennosides 8.6 mg tablet (Senokot) 8.6 mg PO QHS Const ipation 05/20/25 Unknown History vitamins A,C,N-zyfe-hwbzpq 4,296 1 cap PO DAILY Eye Vi tamin 05/20/25 Unknown History mcg-226 mg-90 mg capsule (Healthy Eyes SuperVision) doxazosin 4 mg tablet (Cardura) 4 mg PO QHS 05/25/25 U nknown History lactose-reduced food-fiber 0.07 See Rx Instructions fe eding tube 05/25/25 Unknown History gram-1.5 kcal/mL liquid for tube .COMPLEX feed (Isosource 1.5 Randy) menthol 0.44 %-zinc oxide 20.6 % 1 applic topical BID 05/25/25 Unknown History topical ointment (CalaSoothe) Allergy/AdvReac Type Severity Reaction Status Date / Time No Known Allergies Allergy Verified 05/20/25 19:39 Family History Mother Hypertension Hyperlipidemia, unspecified Osteoarthritis Hearing loss Vision loss Father Heart disease Pneumonia CVA (cerebral vascular accident) Hearing loss Suicide attempt Surgical History History of wisdom tooth extraction History of vasectomy History of tonsillectomy and adenoidectomy History of total hip arthroplasty History of shoulder surgery History of hernia repair History of colonoscopy History of circumcision History of cataract surgery History of cardiac catheterization Social History household members: spouse Smoking Status: Former smoker alcohol intake: never substance use type: does not use Review of Systems (Anesthesia) ROS Narrative System reviewed and no additional complaints, except as documented. 05/26/25 07 MD> Date _ Benigno Bateman MD Cosigner Signature: Date CC: ~ Signed [facility]08-05-2025 History and physical note [facility] Medical Records Department [address] [place] [address] History & Physical Exam 05/26/25 0644 MR#: [id number] Acct: [id number] Name: FAWN CAMERON Rep #:[id number] : 1935 89 From: Stan Friend DO PCP: Dr. Devan Barrera MD Status:[facility] [place]: [place] [address] HPI - General General Date of Admission: 05/26/25 Date of Service: 05/26/25 Chief Complaint: Dysphagia HPI Narrative 89 year old male with below past medical history hospitalized for SDH, SAH, multiple traumatic fractures, complicated by dysphagia requiring dobbhoff TF, admitted to TCU with debility. I was consulted to see him due to his inability to swallow safely and need for placement of PEG tube. [facility] Medical History Dysphagia Hyperlipidemia Depression BPH (benign prostatic hyperplasia) TIA (transient ischemic attack) Coronary artery disease Carotid artery stenosis Osteoarthritis Essential (primary) hypertension GERD (gastroesophageal reflux disease) Sacral fracture Bilateral pubic rami fractures SAH (subarachnoid hemorrhage) SDH (subdural hematoma) Orbital roof fracture Orbital floor fracture Debility Home Medications ?Medication ?Instructions ?Recorded ?Last Taken ?Type acetaminophen 325 mg capsule 650 mg feeding tube Q6H P ain 05/20/25 05/20/25 10:20 History alfuzosin 10 mg tablet,extended 10 mg PO DAILY BPH Unknown History release 24 hr amitriptyline 10 mg tablet 10 mg feeding tube QHS Mood 05/20/25 Unknown History amlodipine 5 mg tablet 5 mg feeding tube DAILY BP 0 05/20/25 Unknown History aspirin 81 mg tablet 81 mg PO DAILY Heart 5 Unknown History benazepril 40 mg tablet 40 mg feeding tube DAILY BP 05/20/25 Unknown History bisacodyl 5 mg tablet 5 mg PO DAILY PRN constipati on 05/20/25 Unknown History cholecalciferol (vitamin D3) 125 125 mcg feeding tube DAILY 05/20/25 05/20/25 10:20 History mcg (5,000 unit) tablet Supplement cyanocobalamin (vitamin B-12) 1,000 mcg PO DAILY Suppl ement 05/20/25 05/20/25 10:25 History 1,000 mcg capsule enoxaparin 30 mg/0.3 mL 30 mg subcut Q12H DVT prophy laxis 05/20/25 05/20/25 12:30 History subcutaneous syringe escitalopram oxalate 5 mg tablet 5 mg feeding tube SID LY Mood 05/20/25 Unknown History folic acid 1 mg tablet 2 mg feeding tube DAILY Supp lement 05/20/25 Unknown History methotrexate sodium 5 mg tablet 20 mg feeding tube QWE EK Arthritis 05/20/25 Unknown History (Trexall) metoprolol tartrate 25 mg tablet 25 mg feeding tube BI D BP 05/20/25 Unknown History omeprazole 40 mg capsule,delayed 40 mg PO DAILY GERD 0 05/20/25 Unknown History release ondansetron HCl 4 mg tablet 4 mg feeding tube Q8H PRN nausea 05/20/25 Unknown History and vomiting oxycodone 5 mg tablet 5 mg feeding tube Q4H PRN pa in 05/20/25 Unknown History (scale score 7-10) pantoprazole 40 mg tablet,delayed 40 mg PO DAILY GERD 05/20/25 Unknown History release polyethylene glycol 3350 17 17 g feeding tube DAILY Unknown History gram/dose oral powder (Miralax) Constipation pravastatin 40 mg tablet 40 mg feeding tube QHS Vivian sterol 05/20/25 Unknown History sennosides 8.6 mg tablet (Senokot) 8.6 mg PO QHS Const ipation 05/20/25 Unknown History vitamins A,C,G-bnmu-bfdvcz 4,296 1 cap PO DAILY Eye Vi tamin 05/20/25 Unknown History mcg-226 mg-90 mg capsule (Healthy Eyes SuperVision) doxazosin 4 mg tablet (Cardura) 4 mg PO QHS 05/25/25 U nknown History lactose-reduced food-fiber 0.07 See Rx Instructions fe eding tube 05/25/25 Unknown History gram-1.5 kcal/mL liquid for tube .COMPLEX feed (Isosource 1.5 Randy) menthol 0.44 %-zinc oxide 20.6 % 1 applic topical BID 05/25/25 Unknown History topical ointment (CalaSoothe) Allergy/AdvReac Type Severity Reaction Status Date / Time No Known Allergies Allergy Verified 05/20/25 19:39 Family History Mother Hypertension Hyperlipidemia, unspecified Osteoarthritis Hearing loss Vision loss Father Heart disease Pneumonia CVA (cerebral vascular accident) Hearing loss Suicide attempt Surgical History History of wisdom tooth extraction History of vasectomy History of tonsillectomy and adenoidectomy History of total hip arthroplasty History of shoulder surgery History of hernia repair History of colonoscopy History of circumcision History of cataract surgery History of cardiac catheterization Social History household members: spouse Smoking Status: Former smoker alcohol intake: never substance use type: does not use ROS Constitutional Constitutional: Denies fatigue, fever(s), poor appetite, weight gain or weight loss Gastrointestinal Gastrointestinal: Denies belching, bloating, change in bowel habits, change in stool character, chewing difficulty, coffee ground emesis, constipation, cramping, diarrhea, dyspepsia, dysphagia, earlysatiety, excessive flatus, fecalincontinence, heartburn, hematemesis, hematochezia, hemorrhoids, loose stools, melena, nausea, odynophagia, rectal bleeding, tenesmus, vomiting or weight changes Vital Signs Vital Signs Vital Signs: 05/26/25 06:17 05/26/25 06:17 Temperature 99.0 F Temperature Source Temporal Pulse Rate 72 Respiratory Rate 18 Respiratory Pattern Normal Blood Pressure 107/56 L Blood Pressure Mean 73 Blood Pressure Source Monitor Blood Pressure Position Semi-Fowlers Blood Pressure Location Left Arm Pulse Ox 96 Oxygen Delivery Method Room Air Weight Weight: 145 lb 10.724 oz Body Mass Index (BMI) 23.5 Physical Exam Const alert, oriented x3, no apparent distress and healthy appearing General Appearance: cooperative GI normal to inspection, nondistended, normoactive bowel sounds, soft to palpation,non-tender and non-distended Percussion: normal to percussion Rectal Exam: deferred Assessment & Plan Assessment/Plan (1) Dysphagia: PLAN: 89 year old male with below past medical history hospitalized for SDH, SAH, multiple traumatic fractures, complicated by dysphagia requiring dobbhoff TF, admitted to TCU with debility. He will undergo PEG tube placement. He was explained alternatives, risk and benefits clinical withstanding bleeding, infection, sepsis, perforation, need for surgery and . He will have an ASAof 3. 05/26/25 0645 Cosigner Signature (if applicable): CC: Dr. Devan Barrera MD; Stan Friend, DO~ Signed [facility]08-05-2025 [facility] Medical Records Department [address] [place] [address] History Physical Exam 05/26/25 0644 MR#: [id number] Acct: [id number] Name: FAWN CAMERON Rep #: [id number] : 1935 89 From: Stan Ferrara DO PCP: Dr. Devan Barrera MD [place] [facility] [place] [address] HPI - General General Date of Admission: 05/26/25 Date of Service: 05/26/25 Chief Complaint: Dysphagia HPI Narrative 89 year old male with below past medical history hospitalized for SDH, SAH, multiple traumatic fractures, complicated by dysphagia requiring dobbhoff TF, admitted to TCU with debility. I was consulted to see him due to his inability to swallow safely and need for placement of PEG tube. [facility] Medical History Dysphagia Hyperlipidemia Depression BPH (benign prostatic hyperplasia) [...] PO QHS Constipation 05/20 Unknown History vitamins A,C,Z-burn-vuqfxy 4,296 1 cap PO DAILY Eye Vitamin 5 Unknown History mcg-226 mg-90 mg capsule (Healthy Eyes SuperVision) doxazosin 4 mg tablet (Cardura) 4 mg PO QHS 05/25/25 Unknown Histo ry lactose-reduced food-fiber 0.07 See Rx Instructions feeding tube 0 05/25/25 Unknown History gram-1.5 kcal/mL liquid for tube .COMPLEX feed (Isosource 1.5 Randy) menthol 0.44 %-zinc oxide 20.6 % 1 applic topical BID 05/25/25 Unkn own History topical ointment (CalaSoothe) Allergy/AdvReac Type Severity Reaction Status Date / Time No Known Allergies Allergy Verified 05/20/25 19:39 Family History Mother Hypertension Hyperlipidemia, unspecified Osteoarthritis Hearing loss Vision loss Father Heart disease Pneumonia CVA (cerebral vascular accident) Hearing loss Suicide attempt Surgical History History of wisdom tooth extraction History of vasectomy History of tonsillectomy and adenoidectomy History of total hip arthroplasty History of shoulder surgery History of hernia repair History of colonoscopy History of circumcision History of cataract surgery History of cardiac catheterization Social History household members: spouse Smoking Status: Former smoker alcohol intake: never substance use type: does not us (more content not included)...[facility]08-03-2025 Radiology Diagnostic study note [facility] Imaging Services [address] [place] [address] Abdomen Single View MR#: [id number] Acct: [id number] Name: FAWN CAMERON Rep #: [id number] : 1935 M 89 From: Pet er Maryjane MEDINA PCP: Dr. Devan Barrera MD Status: AD M IN Study:Abdomen Single View Date of Exam: 05/24/25 Exam# [id number] Ordering Dr: Jesus Alberto Wiggins MD PROCEDURE: [...] NG tube in satisfactory position. Reading Location: [facility] CC: Dr. Devan Barrera MD; Dr. Jesus Alberto Wiggins MD ~ Game Designer: Signed [facility]08-02-2025 Progress note Author Kimberlyn Bates [facility] Note Date/Time May 23, 2025 5:0 5pm [facility] Medical Records Department [address] [place] [address] Progress Note - Pharmacy 05/23/25 1517 MR#: [id number] Acct: [id number] Name: FAWN CAMERON Rep #:[id number] : 1935 89 From: Kimberlyn Bates PCP: Dr. Devan Barrera MD Status:AD M IN Location: TCU [facility] Documented by User: Kimberlyn Bates 05/23/25 16:40 TCU RX Drug Regimen Review Subjective/Objective Subjective/Objective Subjective: TCU Admission. 89 YOM found down after a fall. Hospitalized for SDH,SAH, multiple traumatic fractures, complicated by dysphagia requiring dobbhoff TF. Admitted to TCU with debility for strengthening and rehabilitation. Objective: Allergies No Known Allergies Allergy (Verified 05/20/25 19:39) Current Medications Generic Name Dose Route Start Last Admin Trade Name Freq PRN Reason Stop Dose Admin Acetaminophen 650 mg 05/21/25 00:00 05/23/25 12:46 Acetaminophen 650 Mg/20 Ml Udc GT 650 mg Q6 SILVANO Administration Amitriptyline HCl 10 mg 05/20/25 22:00 05/22/25 21:38 Amitriptyline 10 Mg Tablet NG 10 mg QHS SILVANO Administration Amlodipine Besylate 5 mg 05/21/25 10:00 05/23/25 10:26 Amlodipine 5 Mg Tablet NG 5 mg DAILY SILVANO Administration Protocol Aspirin 81 mg 05/21/25 10:00 05/23/25 10:24 Aspirin 81 Mg Tab.Chew GT 81 mg DAILY SILVANO Administration Calamine/Phenol 1 applic 05/20/25 22:30 05/23/25 10:31 Menthol/Lanolin/Calamine/Znox 113 Gm Tube TOPICAL 1 applic BID SILVANO Administration Protocol Cholecalciferol 125 mcg 05/21/25 10:00 05/23/25 10:27 Cholecalciferol (Vit D3) 125 Mcg Capsule (5,000 Units) GT 125 mcg DAILY SILVANO Administration Cyanocobalamin 1,000 mcg 05/21/25 10:00 05/23/25 10:26 Cyanocobalamin 500 Mcg Tablet GT 1,000 mcg DAILY SILVANO Administration Doxazosin Mesylate 4 mg 05/20/25 22:00 05/22/25 21:38 Doxazosin 4 Mg Tablet NG 4 mg QHS SILVANO Administration Protocol Enoxaparin Sodium 30 mg 05/21/25 10:00 05/23/25 11:13 Enoxaparin 30 Mg/0.3 Ml Syringe SC 30 mg BID SILVANO Administration Escitalopram Oxalate 5 mg 05/21/25 10:00 05/23/25 10:25 Escitalopram Oxalate 10 Mg Tablet GT 5 mg DAILY SILVANO Administration Folic Acid 2 mg 05/21/25 10:00 05/23/25 10:25 Folic Acid 1 Mg Tablet GT 2 mg DAILY SILVANO Administration Glycerin/Hypromellose/Polyethylene 2 drp 05/21/25 07:32 05/21/25 11:32 Glycerin/Hypromellose/Yti666 15 Ml Bottle EACH EYE 2 drp Q1H PRN Administration DRY EYES Enteral Nutritional Formula 1,000 mls @ 50 mls/hr 05/20/25 21:00 05/22/25 16:51 Jevity 1.5 GT 50 mls/hr .Q20H SILVANO Administration Lisinopril 40 mg 05/21/25 10:00 05/23/25 10:27 Lisinopril 40 Mg Tablet GT 40 mg DAILY SILVANO Administration Methotrexate 20 mg 05/24/25 10:00 Methotrexate 2.5 Mg Tablet GT Q7D SILVANO Metoprolol Tartrate 25 mg 05/20/25 22:00 05/23/25 10:24 Metoprolol Tartrate 25 Mg Tablet NG 25 mg BID SILVANO Administration Protocol Multivitamins/Minerals 1 cap 05/21/25 10:00 05/23/25 10:25 Multivitamin (Healthy Eyes) Capsule NG 1 cap DAILY SILVANO Administration Ondansetron HCl 4 mg 05/20/25 19:51 Ondansetron Odt 4 Mg Tablet GT Q8H PRN NAUSEA/VOMITING Oxycodone HCl 5 mg 05/20/25 18:39 Oxycodone 5 Mg Tablet NG Q4H PRN PAIN 7-10 Polyethylene Glycol 17 gm 05/21/25 10:00 05/23/25 10:26 Polyethylene Glycol 3350 17 Gm Packet GT 17 gm DAILY SILVANO Administration Pravastatin Sodium 40 mg 05/20/25 22:00 05/22/25 21:37 Pravastatin 40 Mg Tablet NG 40 mg QHS [facility] Administration Senna 1 tablet 05/20/25 22:00 05/22/25 21:05 Senna Tablet NG Not Given QHS SILVANO Tuberculin PPD 0.1 ml 05/28/25 10:00 Tuberculin,Purif.Prot.Deriv. 50 Tu/Ml Vial ID 05/28/25 10:01 X1 ONE Problem List (Updated 05/20/25 @ 21:[address] Jesus Alberto Wiggins MD) Dysphagia (Acute) Hyperlipidemia (Acute) Depression (Acute) BPH (benign prostatic hyperplasia) (Acute) TIA (transient ischemic attack) (Acute) Coronary artery disease (Acute) Carotid artery stenosis (Acute) Osteoarthritis (Acute) Essential (primary) hypertension (Acute) GERD (gastroesophageal reflux disease) (Acute) Sacral fracture (Acute) Bilateral pubic rami fractures (Acute) SAH (subarachnoid hemorrhage) (Acute) SDH (subdural hematoma) (Acute) Orbital roof fracture (Acute) Orbital floor fracture (Acute) Debility (Acute) Vital Signs Temp Pulse Resp BP Pulse Ox O2 Del Method O2 Flow Rate 97.7 F L 74 18 110/52 L 90 Room Air 2 05/22/25 10:05/23/25 10:05/22/25 10:05/22/25 10:05/22/25 10:05/23/25 12:35 05/21/25 12:18 Oxygen Flow Rate (L/min) 2 Oxygen Delivery Method Room Air Weight: 63.458 kg Body Mass Index (BMI) 22.6 Sodium 139 mmol/L (133-145) 05/21/25 05:17 Potassium 4.1 mmol/L (3.3-5.1) 05/21/25 05:17 Chloride 102 mmol/L (98-108) 05/21/25 05:17 Carbon Dioxide 25.5 mmol/L (21.0-32.0) 05/21/25 05:17 Anion Gap 12 (5-15) 05/21/25 05:17 BUN 31 mg/dL (4-19) H 05/21/25 05:17 Creatinine 0.77 mg/dL (0.70-1.20) 05/21/25 05:17 Est GFR (MDRD) Non-Af 86 (>60) 05/21/25 05:17 BUN/Creatinine Ratio 41.0 RATIO (10-20) H 05/21/25 05:17 Glucose 133 mg/dL (70-99) H 05/21/25 05:17 Assessment/Plan: 1. Pain: acetaminophen liquid 650mg GT Q6 and oxycodone 5mg GT Q4H PRN pain 7- 10. No PRN doses given. Please continue to monitor for increased pain and PRN usage. 2. Bowel: Miralax 17gm GT daily and senna 1T GT QHS. Please continue to monitor for constipation, diarrhea. Last documented bowel movement was 05/22/25. 3. DVT prophylaxis: enoxaparin 30mg SC BID. Please continue to monitor for S/S of bleeding/DVT, hemoglobin (Hgb 10.9g/dL), platelets (last 442,000) and renal function. 4. Hypertension/CAD: metoprolol tartrate 25mg GT BID, lisinopril 40mg GT daily,amlodipine 5mg GT daily, aspirin 81mg GT daily. Please continue to monitor BP (110/52-142/91), HR (74-101), renal function, potassium (last 4.1mmol/L), cough,swelling, S/S of bleeding, hemoglobin. 5. Hyperlipidemia: pravastatin 40mg GT QHS. Please consider ordering a lipid panel as there is no panel in the chart, if clinically appropriate. Thanks. Please continue to monitor for muscle pain. 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 Please consider ordering LFTs as this medication can cause hepatotoxicity (black box warning). Thanks. Please continue to monitor for rash,platelets (last 442,000), CBC, GI symptoms. 7. GERD: lansoprazole 30mg GT daily. Please continue to monitor for S/S of GERD and diarrhea (BEERs). 8. BPH: doxazosin 4mg GT QHS. Please continue to monitor for S/S of BPH and BP. 9. Nausea: ondansetron ODT 4mg GT Q8H PRN nausea/vomiting. No PRN doses have been given. Please continue to monitor for nausea, vomiting and PRN usage. 10. Vitamin D/B12 deficiencies: cholecalciferol 125mcg GT daily and cyanocobalamin 1000mcg GT daily. Please consider ordering vitamin B12 and D levels as there are no levels in the chart. Thanks. 11. Macular degeneration: healthy eyes 1T GT daily. Please continue to monitor. 12. Dry eyes: artificial tears 2gtt OU Q1H PRN dry eyes. Resident has had 1 dose. Please continue to monitor for dry eyes and PRN usage. Assessment/Plan for indications treated with psychotropic medications: 1. Insomnia: amitriptyline 10mg GT QHS. Please see physician note regarding GDR.Please continue to monitor sodium (last 139mmol/L), suicidal ideation (black boxwarning), dementia/delirium (BEERs) and anticholinergic side effects (Mara, pt has artificial tears for dry eyes) and excessive daytime drowsiness. Monitor for efficacy including resident symptoms, behaviors and indications of distress. Monitor for tolerability including mental status, cognition, excessivesleepiness, withdrawal or decreased participation in activities and decline in physical functioning. Maximize use of nonpharmacologic/behavioral interventions to facilitate dose reduction or discontinuation as appropriate. Please evaluate the appropriateness of GDR unless contraindicated. If appropriate, GDR should be attempted in 2 separate quarters within the first year of use or admission to TCU. If GDR attempted, monitor resident symptoms/behaviors. 2. Depression: escitalopram 5mg GT daily. Please see physician note regarding GDR. Monitor for diarrhea, nausea, headache, anxiety or drowsiness, suicidal thoughts or behaviors (Boxed Warning), symptoms of bleeding, symptoms of serotonin syndrome (including agitation, confusion, hyperreflexia, rigidity/myoclonus, tremor, tachycardia, tachypnea), sodium levels (last Na = 139mmol/L). Monitor for efficacy including resident symptoms, behaviors and indications of distress. Monitor for tolerability including mental status, cognition, excessivesleepiness, withdrawal or decreased participation in activities and decline in physical functioning. Maximize use of nonpharmacologic/behavioral interventions to facilitate dose reduction or discontinuation as appropriate. Please evaluate the appropriateness of GDR unless contraindicated. If appropriate, GDR should be attempted in 2 separate quarters within the first year of use or admission to TCU. If GDR attempted, monitor resident symptoms/behaviors. Medical chart and medication regimen reviewed. The following medication irregularities or issues were identified: 1. Pravastatin 40mg GT QHS. Please consider ordering a lipid panel as there is no panel in the chart, if clinically appropriate. Thanks. 2. Methotrexate 20mg GT weekly. Please consider ordering LFTs as this medicationcan cause hepatotoxicity (black box warning). Thanks. 3. Cholecalciferol 125mcg GT daily and cyanocobalamin 1000mcg GT daily. Please consider ordering vitamin B12 and D levels as there are no levels in the chart. Thanks. Date Date of Note: 05/23/25 Documented by User: Dr. Jesus Alberto Wiggins MD 05/23/25 17:05 TCU RX Drug Regimen Review Provider Comments Provider responsibility Provider Comments to Recommendations by Pharmacy Agree 05/23/25 1640 <Electronically signed by Kimberlyn Bates> Kimberlyn Bates Cosigner Signature (if applicable): 05/23/25 1705 <Electronically signed by Jesus Alberto Wiggins MD> CC: ~ Signed [facility] Work Phone: 1(157) 281-261008-02-2025 Progress note [facility] Medical Records Department [address] [place] [address] Progress Note - Pharmacy 05/23/25 1517 MR#: [id number] Acct: [id number] Name: GAVINSELINFAWN Lu Rep #:[id number] 2 : 1935 89 From: Kimberlyn Bates PCP: Dr. Devan Barrera MD Status:AD M IN Location: [place] [address]- Documented by User: Kimberlyn Bates 05/23/25 16:40 TCU RX Drug Regimen Review Subjective/Objective Subjective/Objective Subjective: TCU Admission. 89 YOM found down after a fall. Hospitalized for SDH,SAH, multiple traumatic fractures, complicated by dysphagia requiring dobbhoff TF. Admitted to TCU with debility for strengthening and rehabilitation. Objective: Allergies No Known Allergies Allergy (Verified 05/20/25 19:39) Current Medications Generic Name Dose Route Start Last Admin Trade Name Freq PRN Reason Stop Dose Admin Acetaminophen 650 mg 05/21/25 00:00 05/23/25 12:46 Acetaminophen 650 Mg/20 Ml Udc GT 650 mg Q6 SILVANO Administration Amitriptyline HCl 10 mg 05/20/25 22:00 05/22/25 21:38 Amitriptyline 10 Mg Tablet NG 10 mg QHS SILVANO Administration Amlodipine Besylate 5 mg 05/21/25 10:00 05/23/25 10:26 Amlodipine 5 Mg Tablet NG 5 mg DAILY SILVANO Administration Protocol Aspirin 81 mg 05/21/25 10:00 05/23/25 10:24 Aspirin 81 Mg Tab.Chew GT 81 mg DAILY SILVANO Administration Calamine/Phenol 1 applic 05/20/25 22:30 05/23/25 10:31 Menthol/Lanolin/Calamine/Znox 113 Gm Tube TOPICAL 1 applic BID [facility] Administration Protocol Cholecalciferol 125 mcg 05/21/25 10:00 05/23/25 10:27 Cholecalciferol (Vit D3) 125 Mcg Capsule (5,000 Units) GT 125 mcg DAILY SILVANO Administration Cyanocobalamin 1,000 mcg 05/21/25 10:00 05/23/25 10:26 Cyanocobalamin 500 Mcg Tablet GT 1,000 mcg DAILY SILVANO Administration Doxazosin Mesylate 4 mg 05/20/25 22:00 05/22/25 21:38 Doxazosin 4 Mg Tablet NG 4 mg QHS [facility] Administration Protocol Enoxaparin Sodium 30 mg 05/21/25 10:00 05/23/25 11:13 Enoxaparin 30 Mg/0.3 Ml Syringe SC 30 mg BID SILVANO Administration Escitalopram Oxalate 5 mg 05/21/25 10:00 05/23/25 10:25 Escitalopram Oxalate 10 Mg Tablet GT 5 mg DAILY SILVANO Administration Folic Acid 2 mg 05/21/25 10:00 05/23/25 10:25 Folic Acid 1 Mg Tablet GT 2 mg DAILY SILVANO Administration Glycerin/Hypromellose/Polyethylene 2 drp 05/21/25 07:32 05/21/25 11:32 Glycerin/Hypromellose/Hal731 15 Ml Bottle EACH EYE 2 drp Q1H PRN Administration DRY EYES Enteral Nutritional Formula 1,000 mls @ 50 mls/hr 05/20/25 21:00 05/22/25 16:51 Jevity 1.5 GT 50 mls/hr .Q20H SILVANO Administration Lisinopril 40 mg 05/21/25 10:00 05/23/25 10:27 Lisinopril 40 Mg Tablet GT 40 mg DAILY SILVANO Administration Methotrexate 20 mg 05/24/25 10:00 Methotrexate 2.5 Mg Tablet GT Q7D [facility] Metoprolol Tartrate 25 mg 05/20/25 22:00 05/23/25 10:24 Metoprolol Tartrate 25 Mg Tablet NG 25 mg BID [facility] Administration Protocol Multivitamins/Minerals 1 cap 05/21/25 10:00 05/23/25 10:25 Multivitamin (Healthy Eyes) Capsule NG 1 cap DAILY SILVANO Administration Ondansetron HCl 4 mg 05/20/25 19:51 Ondansetron Odt 4 Mg Tablet GT Q8H PRN NAUSEA/VOMITING Oxycodone HCl 5 mg 05/20/25 18:39 Oxycodone 5 Mg Tablet NG Q4H PRN PAIN 7-10 Polyethylene Glycol 17 gm 05/21/25 10:00 05/23/25 10:26 Polyethylene Glycol 3350 17 Gm Packet GT 17 gm DAILY SILVANO Administration Pravastatin Sodium 40 mg 05/20/25 22:00 05/22/25 21:37 Pravastatin 40 Mg Tablet NG 40 mg QHS SILVANO Administration Senna 1 tablet 05/20/25 22:00 05/22/25 21:05 Senna Tablet NG Not Given QHS SILVANO Tuberculin PPD 0.1 ml 05/28/25 10:00 Tuberculin,Purif.Prot.Deriv. 50 Tu/Ml Vial ID 05/28/25 10:01 X1 ONE Problem List (Updated 05/20/25 @ 21:[address] Jesus Alberto Wiggins MD) Dysphagia (Acute) Hyperlipidemia (Acute) Depression (Acute) BPH (benign prostatic hyperplasia) (Acute) TIA (transient ischemic attack) (Acute) Coronary artery disease (Acute) Carotid artery stenosis (Acute) Osteoarthritis (Acute) Essential (primary) hypertension (Acute) GERD (gastroesophageal reflux disease) (Acute) Sacral fracture (Acute) Bilateral pubic rami fractures (Acute) SAH (subarachnoid hemorrhage) (Acute) SDH (subdural hematoma) (Acute) Orbital roof fracture (Acute) Orbital floor fracture (Acute) Debility (Acute) Vital Signs Temp Pulse Resp BP Pulse Ox O2 Del Method O2 Flow Rate 97.7 F L 74 18 110/52 L 90 Room Air 2 05/22/25 10:24 05/23/25 10:24 05/22/25 10:24 05/22/25 10:24 05/22/25 10:24 05/23/25 12:35 05/21/25 12:18 Oxygen Flow Rate (L/min) 2 Oxygen Delivery Method Room Air Weight: 63.458 kg Body Mass Index (BMI) 22.6 Sodium 139 mmol/L (133-145) 05/21/25 05:17 Potassium 4.1 mmol/L (3.3-5.1) 05/21/25 05:17 Chloride 102 mmol/L (98-108) 05/21/25 05:17 Carbon Dioxide 25.5 mmol/L (21.0-32.0) 05/21/25 05:17 Anion Gap 12 (5-15) 05/21/25 05:17 BUN 31 mg/dL (4-19) H 05/21/25 05:17 Creatinine 0.77 mg/dL (0.70-1.20) 05/21/25 05:17 Est GFR (MDRD) Non-Af 86 (>60) 05/21/25 05:17 BUN/Creatinine Ratio 41.0 RATIO (10-20) H 05/21/25 05:17 Glucose 133 mg/dL (70-99) H 05/21/25 05:17 Assessment/Plan: 1. Pain: acetaminophen liquid 650mg GT Q6 and oxycodone 5mg GT Q4H PRN pain 7- 10. No PRN doses given. Please continue to monitor for increased pain and PRN usage. 2. Bowel: Miralax 17gm GT daily and senna 1T GT QHS. Please continue to monitor for constipation, diarrhea. Last documented bowel movement was 05/22/25. 3. DVT prophylaxis: enoxaparin 30mg SC BID. Please continue to monitor for S/S of bleeding/DVT, hemoglobin (Hgb 10.9g/dL), platelets (last 442,000) and renal function. 4. Hypertension/CAD: metoprolol tartrate 25mg GT BID, lisinopril 40mg GT daily,amlodipine 5mg GT daily, aspirin 81mg GT daily. Please continue to monitor BP (110/52-142/91), HR (74-101), renal function, potassium (last 4.1mmol/L), cough,swelling, S/S of bleeding, hemoglobin. 5. Hyperlipidemia: pravastatin 40mg GT QHS. Please consider ordering a lipid panel as there is no panel in the chart, if clinically appropriate. Thanks. Please continue to monitor for muscle pain. 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 Please consider ordering LFTs as this medication can cause hepatotoxicity (black box warning). Thanks. Pleasecontinue to monitor for rash,platelets (last 442,000), CBC, GI symptoms. 7. GERD: lansoprazole 30mg GT daily. Please continue to monitor for S/S of GERD and diarrhea (BEERs). 8. BPH: doxazosin 4mg GT QHS. Please continue to monitor for S/S of BPH and BP. 9. Nausea: ondansetron ODT 4mg GT Q8H PRN nausea/vomiting. No PRN doses have been given. Please continue to monitor for nausea, vomiting and PRN usage. 10. Vitamin D/B12 deficiencies: cholecalciferol 125mcg GT daily and cyanocobalamin 1000mcg GT daily. Please consider ordering vitamin B12 and D levels as there are no levels in the chart. Thanks. 11. Macular degeneration: healthy eyes 1T GT daily. Please continue to monitor. 12. Dry eyes: artificial tears 2gtt OU Q1H PRN dry eyes. Resident has had 1 dose. Please continue to monitor for dry eyes and PRN usage. Assessment/Plan for indications treated with psychotropic medications: 1. Insomnia: amitriptyline 10mg GT QHS. Please see physician note regarding GDR.Please continue to monitor sodium (last 139mmol/L), suicidal ideation (margarita walton), dementia/delirium (Mara) andanticholinergic side effects (Mara, pt has artificial tears for dry eyes) and excessive daytime drowsiness. Monitor for efficacy including resident symptoms, behaviors and indications of distress. Monitor for tolerability including mental status, cognition, excessivesleepiness, withdrawal or decreased participation in activities and decline in physical functioning. Maximize use of nonpharmacologic/behavioral interventions to facilitate dose reduction or discontinuation as appropriate. Please evaluate the appropriateness of GDR unless contraindicated. If appropriate, GDR should be attempted in 2 separate quarters within the first year of use or admission to TCU. If GDR attempted, monitor resident symptoms/behaviors. 2. Depression: escitalopram 5mg GT daily. Please see physician note regarding GDR. Monitor for diarrhea, nausea, headache, anxiety or drowsiness, suicidal thoughts or behaviors (Boxed Warning), symptoms of bleeding, symptoms of serotonin syndrome (including agitation, confusion, hyperreflexia, rigid ity/myoclonus, tremor, tachycardia, tachypnea), sodium levels (last Na = 139mmol/L). Monitor for efficacy including resident symptoms, behaviors and indications of distress. Monitor for tolerability including mental status, cognition, excessivesleepiness, withdrawal or decreased participation in activities and decline in physical functioning. Maximize use of nonpharmacologic/behavioral interventions to facilitate dose reduction or discontinuation as appropriate. Please evaluate the appropriateness of GDR unless contraindicated. If appropriate, GDR should be attempted in 2 separate quarters within the first year of use or admission to TCU. If GDR attempted, monitor resident symptoms/behaviors. Medical chart and medication regimen reviewed. The following medication irregularities or issues were identified: 1. Pravastatin 40mg GT QHS. Please consider ordering a lipid panel as there is no panel in the chart, if clinically appropriate. Thanks. 2. Methotrexate 20mg GT weekly. Please consider ordering LFTs as this medicationcan cause hepatotoxicity (black box warning). Thanks. 3. Cholecalciferol 125mcg GT daily and cyanocobalamin 1000mcg GT daily. Please consider ordering vitamin B12 and D levels as there are no levels in the chart. Thanks. Date Date of Note: 05/23/25 Documented by User: Dr. Jesus Alberto Wiggins MD 05/23/25 17:05 TCU RX Drug Regimen Review Provider Comments Provider responsibility Provider Comments to Recommendations by Pharmacy Agree 05/23/25 1640 Kimberlyn Andrews Signature (if applicable): 05/23/25 1705 CC: ~ Signed [facility]07-31-2025 Radiology Diagnostic study note [facility] Imaging Services [address] [place], [place] [address] Brain/Head without Contrast MR#: [id number] Acct: [id number] Name: FAWN CAMERON Rep #: [id number] : 1935 M 89 From: Michael Brown MD PCP: Dr. Devan Barrera MD Status: RE G CLI Study:Brain/Head without Contrast Date of Exa m: 05/21/25 Exam# [id number] Ordering Dr: Jesus Alberto Wiggins MD PROCEDURE: [...] No significant mass-effect or midline shift. Normal ventricularcaliber. Mild generalized brain parenchymal volume loss, and chronic microangiopathic changes. No evidence of acute territorial infarct. Atherosclerotic vascular calcifications. Absent afognak ocular lenses. Intact skull base and calvarium. [...] subdural hematoma collection or hygroma. Reading Location: [id number] CC: Dr. Devan Barrera MD; Dr. Jesus Alberto Wiggins MD ~ Game Designer: Signed [facility]07-31-2025 Radiology Diagnostic study note [facility] Imaging Services [address] [place] [address] Chest PA and Lateral MR#: [id number] Acct: [id number] Name: FAWN CAMERON Rep #: [id number] : 1935 M 89 From: Michael Brown MD PCP: Dr. Devan Barrera MD Status: AD M IN Study:Chest PA and Lateral Date of Exam: 05/21/25 Exam# [id number] Ordering Dr: Jesus Alberto Wiggins MD PROCEDURE: [...] IMPRESSION: No acute cardiopulmonary disease. Reading Location: [id number] CC: Dr. Devan Barrera MD; Dr. Jesus Alberto Wiggins MD ~ Game Designer: Signed [facility]07-30-2025 [facility] Medical Records Department [address] [place] [address] History Physical Exam 05/20/250 MR#: [id number] Acct: [id number] Name: FAWN CAMERON Rep #: [id number] : 1935 89 From: Jesus Alberto Wiggins MD PCP: Dr. Devan Barrera MD Status:ADM IN Location: [facility] TCU05-1 HPI - General General Date of Admission: 05/20/25 Date of Service: 05/20/25 Chief Complaint: Here for rehabilitation. HPI Narrative FAWN CAMERON, is a 89 Male who presents with followin05/10/2025 Admit [facility]. 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 Injuries: 1. [...] extremity for bilateral pubic rami fracture. 05/14/2025 WARD SERVICE SUPERVISOR recommended NPO. 05/15/2025 No acute events overnight. Dobbhoff tube placed for TF. 05/16/2025 Advance TF to goal. 05/18/2025 No acute events overnight. Dizzy with PT. 05/19/2025 PT/OT/CM for SNF. 05/20/2025 Admit to TCU with debility, here for rehabilitation, strengthening, prior to discharge home with . [facility] Medical History (Updated 05/20/25 @ 21:42 by [...] PO QHS Constipation 05/20 Unknown History vitamins A,C,O-yzlc-oeqxrr 4,296 1 cap PO DAILY Eye Vitamin [...] loss Suicide attempt S (more content not included)...[place] [address]-30-2025 Evaluation note* Diagnosis Onset Date Resolution Status Admit Date Bilateral pubic rami fractures acute May 20, 2025 6:52pm BPH (benign prostatic hyperplasia) acute May 20, 2025 6:52pm Carotid artery stenosis acute 2024 6:52pm Coronary artery disease acute 2024 6:52pm Debility acute May 20 6:52pm Depression acute May 20 6:52pm Dysphagia acute May 20 6:52pm Essential (primary) hypertension acu te May 20, 2025 6:52pm GERD (gastroesophageal reflu x disease) acute May 20, 2025 6:52pm Hyperlipidemia acute May 20, 2025 6:52pm Orbital floor fracture acute 2024 6:52pm Orbital roof fracture acute Apr 6:52pm Osteoarthritis acute May 20, 2025 6:52pm Sacral fracture acute April 6:52pm SAH (subarachnoid hemorrhage) acute May 20, 2025 6:52pm SDH (subdural hematoma) acute 2024 6:52pm TIA (transient ischemic attack) acut e May 20, 2025 6:52pm Dysphagia acute May 26 5:45am [facility] Work Phone: 1(271) 944-352107-30-2025 Evaluation note* Diagnosis Onset Date Resolution Status Admit Date Bilateral pubic rami fractures acute May 20, 2025 6:52pm BPH (benign prostatic hyperplasia) acute May 20, 2025 6:52pm Carotid artery stenosis acute 2024 6:52pm Coronary artery disease acute 2024 6:52pm Debility acute May 20 6:52pm Depression acute May 20 6:52pm Dysphagia acute May 20 6:52pm Essential (primary) hypertension acu te May 20, 2025 6:52pm GERD (gastroesophageal reflu x disease) acute May 20, 2025 6:52pm Hyperlipidemia acute May 20, 2025 6:52pm Orbital floor fracture acute 2024 6:52pm Orbital roof fracture acute Apr 6:52pm Osteoarthritis acute May 20, 2025 6:52pm Sacral fracture acute April 6:52pm SAH (subarachnoid hemorrhage) acute May 20, 2025 6:52pm SDH (subdural hematoma) acute 2024 6:52pm TIA (transient ischemic attack) acut e May 20, 2025 6:52pm Dysphagia acute May 26 5:45am Dysphagia acute June 17, 2 025 2:23pm [facility] Work Phone: 1(978) 408-330607-30-2025 Evaluation note* Diagnosis Onset Date Resolution Status Admit Date BPH (benign prostatic hyperplasia) acute May 20, 2025 6:52pm Carotid artery stenosis acute 2024 6:52pm Coronary artery disease acute 2024 6:52pm Debility acute May 20 6:52pm Depression acute May 20 6:52pm Essential (primary) hypertension acute May 20, 2025 6:52pm GERD (gastroesophageal reflu x disease) acute May 20, 2025 6:52pm Hyperlipidemia acute May 20, 2025 6:52pm Osteoarthritis acute May 20, 2025 6:52pm TIA (transient ischemic attack) acut e May 20, 2025 6:52pm Bilateral pubic rami fractures resol josé antonio May 20, 2025 6:52pm Dysphagia resolved May 20 6:52pm Orbital floor fracture resolved Ju 2024 6:52pm Orbital roof fracture resolved Apr 6:52pm Sacral fracture resolved April 6:52pm SAH (subarachnoid hemorrhage) resolv ed May 20, 2025 6:52pm SDH (subdural hematoma) resolved 2024 6:52pm Dysphagia resolved May 26 5:45am Dysphagia resolved June 17, 2 025 2:23pm [facility] Work Phone: 1(429) 918-659207-30-2025 History of Present illness Narrative* Miesha Kelly RN - 05/20/2025 2:01 PM EDT 05/20/25 1401 Discharge Planning Expected Discharge Disposition SNF Does the patient need discharge transport arranged? Yes Transitional Care Coordination Progress Note: Per trauma team, pt medically ready for discharge. [facility] SNF can accept pt today. Transport confirmed for 3:30pm, PAM Ramesh notified. Bedside nurse notified, report #[phone] provided. Transport slip delivered to distance learning unit leader. This nurse met with patient at the bedside and notified of acceptance to [facility] and transportation time. Telephone call to pts , notified of the above. Per DSC support team no [id number] is requires for their swing bed program. DIANNE Amato, environmental services assistant Coordinator Office: [phone] Secure chat via [employer] * Miesha Kelly RN - 05/20/2025 9:27 AM EDT 05/20/25926 Discharge Planning Expected Discharge Disposition SNF Does the patient need discharge transport arranged? Yes Transitional Care Coordination Progress Note: This nurse notified by [facility] liaison (Fatou [phone]) that their SNF can accept pt, stated they offer 1 1/2 to 2 hours of therapy, 5-6 days/ week. Telephone call to pts , agreeable to referral being placed. [facility]erral submitted [facility]. DIANNE Amato, environmental services assistant Coordinator Office: [phone] Secure chat via [employer] * Elaine Madrigal APRN-BARN HAND - 05/19/2025 4:00 PM EDT [facility] TRAUMA SERVICE - PROGRESS NOTE Patient Name: Fawn Cameron Admit Date: [id number] : 1935 AGE: 89 y.o. 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 LOC (yes/no?): Yes Anticoagulant / Anti-platelet Rx? (for what dx?): ASA 81 Referring Facility Name (N/A for scene EMR run): [facility] INJURIES: Right orbital floor Mild buckled fracture [...] #Oropharyngeal dysphagia -failed bedside eval and MBSS; WARD SERVICE SUPERVISOR rec NPO with ice chips -pt had [...] and discussed with Dr. Montoya. Elaine Madrigal, WHITE WASHER PILER[facility] Trauma Surgery [id number] Total face to face time spent with [...] due to pain, muscle strength 5/5 bilateral upperand lower extremities Skin: General: Skin is warm. [...] results, and imaging pertinent for today's encounter. * Jannette Guidry PT - 05/19/2025 2:27 PM EDT Physical Therapy Physical Therapy Treatment Patient Name: Fawn Campos Department: [place] [address] Room: [address] [place] [address] Today's Date: 05/19/2025 Time Calculation Start Time: [...] 1: cues for hand placement Outcome Measures: [facility] Basic Mobility Turning from your back to [...] 05/11/25 Expected End: 05/25/25 Jannette Guidry PT * Analy Cardona MD - 05/19/2025 1:45 PM EDT Subjective No acute events overnight. Failed bedside and barrium swallow on 05/14, now NPO with NG tube at goalfor feeds (50cc/hr). Pt working with PT today and said he didn't feel dizzy this time. Denies headache, chest pain, SOB, abdominal pain. States he had a bowel movement today and is urinating well. Ptstated that he slept better last night. Objective [...] due to pain, muscle strength 5/5 bilateral lowerextremities Skin: General: Skin is warm. Comments: Skin [...] Component Value Date TSH 4.88 (H) 05/12/2025 [id number] 283 05/12/2025 VITD25 18 (L) 05/12/2025 Results [...] C4-C5 as well as moderate facet disease Increasedlordosis of the cervical spine. MACRO: None Signed by: Clement Estevez 05/09/2025 8:28 AM Dictation workstation: [id number] XR abdomen 1 view Narrative: Interpreted By: Oj Regan, STUDY: XR ABDOMEN 1 VIEW; 05/19/2025 11:35 am INDICATION: Signs/Symptoms:eval dobhoff placement. COMPARISON: 05/15/2025. ACCESSION NUMBER(S): [id number] ORDERING CLINICIAN: ELAINE MADRIGAL FINDINGS: Dobbhoff tube [...] Oj Regan 05/19/2025 12:02 PM Dictation workstation: [id number] DATA: EKG: QTC Encounter Date: 05/10/25 ECG 12 lead Result Value Ventricular Rate 72 Atrial Rate 72 MO Interval 190 QRS Duration 104 QT Interval 394 QTC Calculation(Bazett) 431 P Foxhome 31 R Foxhome -15 T Foxhome 44 QRS Count 12 Q Onset 210 P Onset 115 P Offset 178 T Offset 407 QTC Fredericia 418 Narrative Normal sinus rhythm Normal ECG When compared with ECG of 10-MAY-2025 13:54, No significant change was found See ED provider note for full interpretation and clinical correlation Confirmed by Yolanda Garcia ([id number]) on 05/11/2025 3:47:31 AM Anti-psychotics in 48 [...] They stated that they had discussed this withtheir before and come to this decision. Patient [...] BP 128/88 HR 88, sitting BP 138/70 HR80 - EKG/trops negative on admission, QTC 431, [...] treat or investigate in geriatric population unless TSH>8 Can be rechecked in 6 weeks as [...] Goals of Care: -Health care power of contracts attorney: Diya () -Living will: present Code status: [...] over the weekend, please page Geriatrics pager [phone] Analy Cardona MD PGY1 Internal Medicine I saw and evaluated the patient. I personally obtained the de jesus and critical portions of the historyand physical exam or was physically present for de jesus and critical portions performed by the resident/ med student. I reviewed the resident s / med student's documentation and discussed the patient with them. I agree with the resident's / medical student's medical decision making as documented in their note, which includes my edits. Analy Cardona MD [1] Current Facility-Administered Medications Medication Dose Route Frequency Provider Last Rate Last Admin acetaminophen (Tylenol) tablet 650 mg 650 mg nasoduodenal tube q6h SILVANO Omer MD 650 mg at 05/19/25 0923 [...] syringe 30 mg 30 mg subcutaneous q12h [facility] Rajwinder Omer MD 30 mg at 05/19/25 [...] Nightly Rajwinder Omer MD 40 mg at sennosides (Senokot) tablet 8.6 mg 1 tablet nasoduodenal tube Nightly PRN Rajwinder Omre MD Cosigned by Ania Moyer MD at 05/19/2025 5:30 PM EDT Associated attestation - Ania Moyer MD - 05/19/2025 5:30 PM EDT I saw and evaluated the patient. I personally obtained the de jesus and critical portions of the historyand physical exam or was physically present for de jesus and critical portions performed by the resident/fellow. I reviewed the resident/fellow's documentation and discussed the patient with the resident/vikki gray. I agree with the resident/fellow's medical decision making as documented in the note. * Miesha Kelly RN - 05/19/2025 10:00 AM EDT 05/19/25 0959 Discharge Planning Expected Discharge Disposition Rehab Does the patient need discharge transport arranged? Yes .Transitional Care Coordination Progress Note: VM to [facility], VM placed for liaison. Requested an update on acceptance, my contact information provided. Addendum 1130: This nurse notified by [facility] that their MD feels as though pt can't tolerate 3hours of therapy. Unable to accept at this time. Facility suggested their swing bed program, that offers 1 1/2 to 2 hours of therapy ([facility] # [phone], fax #[phone]). This nurse spoke with pts and notified her of the above. Agreeable to referral being submitted to [facility], SNF list emailed to pts for review. Telephone call to [facility] (Paige BURGESS) confirmed they can accept with a marqiuse, confirmed bed availability. Referral faxed for review. My contact information provided. Addendum 8532: Telephone call to [facility], spoke with Paige BURGESS, who stated clinicals were not received. Requested that they be faxed to [phone], clinicals faxed. Pts chose SNF FOC via [facility] 1) [facility] 2) [facility] SNF 3) [facility] [place] Referral submitted via [facility]. DIANNE Amato, environmental services assistant Coordinator Office: [phone] Secure chat via [employer] * Elaine Madrigal, TEETEE-BARN HAND - 05/18/2025 3:10 PM EDT [facility] TRAUMA SERVICE - PROGRESS NOTE Patient Name: Fawn Cameron Admit Date: [id number] : 1935 AGE: 89 y.o. 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 LOC (yes/no?): Yes Anticoagulant / Anti-platelet Rx? (for what dx?): ASA 81 Referring Facility Name (N/A for scene EMR run): [facility] INJURIES: Right orbital floor Mild buckled fracture [...] dysphagia > failed bedside eval and MBSS; WARD SERVICE SUPERVISOR rec NPO with ice chips > pt [...] and discussed with Dr. Montoya. Elaine Madrigal, WHITE WASHER PILER-[facility]ARN [employer] Trauma Surgery 43705 Total face to face time spent with [...] due to pain, muscle strength 5/5 bilateral upperand lower extremities Skin: General: Skin is warm. [...] results, and imaging pertinent for today's encounter. * Enid Ng OT - 05/18/2025 2:19 PM EDT Occupational Therapy Occupational Therapy Occupational Therapy Treatment Name: Fawn Campos : 1935 Date: 05/18/25 Room: 6081/6081-A Time Calculation Start Time: 1230 Stop Time: [...] Standing-Level of Assistance: Minimum assistance Outcome Measures: [facility] Daily Activity Putting on and taking off [...] 05/18/25 at 2:19 PM Enid Ng OT [phone] * Analy Cardona MD - 05/18/2025 1:41 PM EDT Subjective No acute events over the weekend. [...] due to pain, muscle strength 5/5 bilateral lowerextremities Skin: General: Skin is warm. Capillary Refill: [...] C (98.1 F) Resp 15 16 Vitals: 05/10/252156 Weight: 66.2 kg (146 lb) Relevant Results Lab Results Component Value Date TSH 4.88 (H) 05/12/2025 [id number] 283 05/12/2025 VITD25 18 (L) 05/12/2025 Results [...] C4-C5 as well as moderate facet disease Increasedlordosis of the cervical spine. MACRO: None Signed by: Clement Estevez 05/09/2025 8:28 AM Dictation workstation: [id number] FL modified barium swallow study Narrative: Interpreted By: Antonio Bullock and Nelson Camree STUDY: FL MODIFIED BARIUM SWALLOW STUDY;; 05/14/2025 1:53 pm INDICATION: Signs/Symptoms:R/o aspiration, oropharyngeal dysphagia. COMPARISON: None. ACCESSION NUMBER(S): [id number] ORDERING CLINICIAN: LYA WALDROP TECHNIQUE: MBSS completed. Informed verbal consent obtained prior to completion of exam. Trials of thin, nectar thick, honey thick, puree, soft-solids, and regular solids given. WARD SERVICE SUPERVISOR: Shannon Santos Phone/Pager: [phone] SPEECH FINDINGS: Speech-Language Pathology Inpatient Modified Barium [...] tsp/straw, purees, and regular solids were given. 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 He [...] risk of aspiration w/ continued PO intake WARD SERVICE SUPERVISOR PLAN: Skilled WARD SERVICE SUPERVISOR Services: Skilled WARD SERVICE SUPERVISOR intervention for dysphagia is warranted. WARD SERVICE SUPERVISOR Frequency: pending GOC decisions made Discussed POC: [...] given on all accounts. Treatment Provided Today: WARD SERVICE SUPERVISOR provided extensive education and training to pt/pt [...] further evaluation by medical specialists, as applicable. WARD SERVICE SUPERVISOR Impressions with Severity Rating: Pt awake/alert, consistently cooperative/able to follow commands, and responded appropriately to conversation/questions by WARD SERVICE SUPERVISOR. Missing dentition noted. Severe oropharyngeal dysphagia. Prolonged [...] residue, NO pt response After the Swallow [place] Thick Liquids: 8. SILENT ASPIRATION - contrast [...] findings as stated by Prakash Jorge MD (vice president of advertising). This study was interpreted at [place], [place]. MACRO: None Signed by: Antonio Lane 05/16/2025 4:02 PM Dictation workstation: [id number] XR abdomen 1 view Narrative: Interpreted By: Michelle Hodges and Ritchie Brandon STUDY: XR ABDOMEN 1 VIEW; 05/15/2025 5:16 pm INDICATION: Signs/Symptoms:Confirm DHT placement. COMPARISON: CT chest abdomen pelvis 05/10/2025. ACCESSION NUMBER(S): [id number] ORDERING CLINICIAN: LAY WALDROP FINDINGS: Dobbhoff tube [...] Freedom Luna. This study was interpreted at [facility], [place], [place]. MACRO: None Signed by: Michelle Kelvinshruthi Blackwell 05/16/2025 6:04 AM Dictation workstation: [id number] DATA: EKG: QTC Encounter Date: 05/10/25 ECG 12 lead Result Value Ventricular Rate 72 Atrial Rate 72 MO Interval 190 QRS Duration 104 QT Interval 394 QTC Calculation(Bazett) 431 P Foxhome 31 R Foxhome -15 T Fox[place] 44 QRS Count 12 Q Onset 210 P Onset 115 P Offset 178 T Offset 407 QTC Fredericia 418 Narrative Normal sinus rhythm Normal ECG When compared with ECG of 10-MAY-2025 13:54, No significant change was found See ED provider note for full interpretation and clinical correlation Confirmed by Yolanda Garcia ([id number]) on 05/11/2025 3:47:31 AM Anti-psychotics in 48 [...] They stated that they had discussed this withtheir before and come to this decision. Patient [...] BP 128/88 HR 88, sitting BP 138/70 HR80 - EKG/trops negative on admission, QTC 431, [...] treat or investigate in geriatric population unless TSH>8 Can be rechecked in 6 weeks as [...] Goals of Care: -Health care power of contracts attorney: Diya () -Living will: present Code status: [...] over the weekend, please page Geriatrics pager [phone] Analy Cardona MD PGY1 Internal Medicine I saw and evaluated the patient. I personally obtained the de jesus and critical portions of the historyand physical exam or was physically present for de jesus and critical portions performed by the resident/ med student. I reviewed the resident s / med student's documentation and discussed the patient with them. I agree with the resident's / medical student's medical decision making as documented in their note, which includes my edits. Analy Cardona MD [1] Current Facility-Administered Medications Medication Dose Route Frequency Provider Last Rate Last Admin acetaminophen (Tylenol) tablet 650 mg 650 mg nasoduodenal tube q6h [facility] Rajwinder Omer MD 650 mg at 05/18/25 [...] syringe 30 mg 30 mg subcutaneous q12h [facility] Rajwinder Omer MD 30 mg at 05/18/25 [...] Nightly Rajwinder Omer MD 40 mg at 102 sennosides (Senokot) tablet 8.6 mg 1 tablet nasoduodenal tube Nightly PRN Rajwinder Omer MD Cosigned by Ania Moyer MD at 05/18/2025 5:51 PM EDT Associated attestation - Ania Moyer MD - 05/18/2025 5:51 PM EDT I saw and evaluated the patient. I personally obtained the de jesus and critical portions of the historyand physical exam or was physically present for de jesus and critical portions performed by the resident/fellow. I reviewed the resident/fellow's documentation and discussed the patient with the resident/vikki gray. I agree with the resident/fellow's medical decision making as documented in the note. * Miesha Kelly RN - 05/18/2025 11:22 AM EDT 05/18/25 1118 Discharge Planning Expected Discharge Disposition Rehab Does the patient need discharge transport arranged? Yes Transitional Care Coordination Progress Note: Plan per Medical/Surgical team: Pt failed bedside eval and MBS, DHT placed. Discharge Disposition: Acute rehab Potential Barriers: none Patient Class: Inpatient Financial Class: Medicare A/B ADOD: 05/19 INSURANCE COUNSEL [place] notified that per [facility] [place], facility is unable to accept pt with a marquise. Per INSURANCE COUNSEL no plan for PEG at this time, this nurse awaiting plan for follow up. VM to pts second [facility], my contact provided. Telephone call to pts , notified of the above. Pts requested that refferal be sent to [facility]. Addendum 1521: Telephone call to [facility] admissions nurse who confirmed she received clinical information. Stated she'd review. My contact information provided. DIANNE Amato, environmental services assistant Coordinator Office: [phone] Secure chat via [employer] * Jannette Guidry, PT - 05/18/2025 11:05 AM EDT Physical Therapy Physical Therapy Treatment Patient Name: Fawn Campos Department: [place] [address] Room: [facility] [facility] Today's Date: 05/18/2025 Time Calculation Start Time: [...] risk due to function or environment, Intermittent mobilityassistance needed Evaluation/Treatment Tolerance: Patient limited by pain [...] -- 82 16 95 % 148/75 99 07/28/25 1200 -- -- 86 -- 96 % [...] upright posture Stairs Stairs: No Outcome Measures: [facility] Basic Mobility Turning from your back to [...] SBA (Progressing) Start: 05/11/25 Expected End: 05/25/25 * Rajwinder Omer MD - 05/16/2025 4:50 PM EDT [facility] TRAUMA SERVICE - PROGRESS NOTE Patient Name: Fawn Cameron Admit Date: [id number] : 1935 AGE: 89 y.o. 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 LOC (yes/no?): Yes Anticoagulant / Anti-platelet Rx? (for what dx?): ASA 81 Referring Facility Name (N/A for scene EMR run): [facility] INJURIES: Right orbital floor Mild buckled fracture [...] dysphagia > failed bedside eval and MBSS; WARD SERVICE SUPERVISOR rec NPO with ice chips >pt had [...] ppx: Home PPI for GERD - Dispo: RNF care, pending acute rehab. DHT placed, medically [...] due to pain, muscle strength 5/5 bilateral upperand lower extremities Skin: General: Skin is warm. [...] as documented. Pending dispo to acute rehab * Miesha Kelly RN - 05/16/2025 2:04 PM EDT 05/16/25 1403 Discharge Planning Expected Discharge Disposition Rehab Transitional Care Coordination Progress Note: Per MD Omer NG placed, pending goal rate feeds. ADOD tomorrow VM to [facility] rehab, advised of pts anticipated date of discharge. My contact information provided. DIANNE Amato, environmental services assistant Coordinator Office: [phone] Secure chat via KoalaDe[employer] * Rajwinder Omer MD - 05/15/2025 6:06 PM EDT [facility] TRAUMA SERVICE - PROGRESS NOTE Patient Name: Fawn Cameron Admit Date: [id number] : 1935 AGE: 89 y.o. 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 LOC (yes/no?): Yes Anticoagulant / Anti-platelet Rx? (for what dx?): ASA 81 Referring Facility Name (N/A for scene EMR run): [facility] INJURIES: Right orbital floor Mild buckled fracture [...] dysphagia > failed bedside eval and MBSS; WARD SERVICE SUPERVISOR rec NPO with ice chips >pt had [...] ppx: Home PPI for GERD - Dispo: [facility] care, pending acute rehab. DHT placed, [...] due to pain, muscle strength 5/5 bilateral upperand lower extremities Skin: General: Skin is warm. [...] agree with assessment and plan as documented. * Beatriz Gordon, PT - 05/15/2025 12:41 PM EDT Physical Therapy Physical Therapy Treatment Patient Name: Fawn Campos Department: [place] [address] Room: 60/6081-A Today's Date: 05/15/2025 Time Calculation [...] risk due to function or environment, Intermittent mobilityassistance needed Evaluation/Treatment Tolerance: Patient tolerated treatment well Medical Staff Made Aware: Yes Strengths: Attitude of self Barriers to Participation: Comorbidities End of Session Communication: Bedside nurse Assessment Comment: pt able to progress to ambulation but with constant cueing. pt labile with lackof progress although reminded that pt is doing [...] and walker Stairs Stairs: No Outcome Measures: [facility] Basic Mobility Turning from your back to [...] Verbalizes Understanding Body Mechanics, taught by Beatriz oGrdon PT at 05/15/2025 12:40 PM. Learner: Patient [...] SBA (Progressing) Start: 05/11/25 Expected End: 05/25/25 * Miesha Kelly RN - 05/15/2025 12:29 PM EDT 05/15/25 1229 Discharge Planning Expected Discharge Disposition Rehab Does the patient need discharge transport arranged? Yes Transitional Care Coordination Progress Note: This nurse met with the pt and his family and Met with pt and introduced myself as Care Coordinatorwith Care Transitions Team for Discharge Planning. My contact information provided, Updates submitted to [facility]. DIANNE Amato, environmental services assistant Coordinator Office: [phone] Secure chat via [employer]ala[employer] * Ilda Hutson OT - 05/15/2025 10:25 AM EDT Occupational Therapy Occupational Therapy Treatment Name: Fawn Campos Department: [place] [address] Room: [address] [place] [address] Date: 05/15/25 Time Calculation Start Time: 936 Stop Time: 1000 Time Calculation (min): 23 min Assessment: OT Assessment: difficulty I/ADLS, safety, fxnl mob Prognosis: Good Barriers to Discharge Home: Physical needs Physical Needs: 24hr mobility assistance needed, 24hr ADL assistance needed, High falls risk due tofunction or environment Evaluation/Treatment Tolerance: Patient tolerated treatment [...] Sitting-Level of Assistance: Contact guard Outcome Measures: [facility] Daily Activity Putting on and taking off [...] Response: Verbalizes Understanding, Needs Reinforcement Comment: daylin mob ADLs Education Comments No comments found. Goals: [...] assistance. (Progressing) Start: 05/13/25 Expected End: 06/03/25 * Nolan Carson MD - 05/15/2025 8:34 AM EDT Subjective NAONE Interval Updates: failed bedside and [...] due to pain, muscle strength 5/5 bilateral lowerextremities Skin: General: Skin is warm. 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 MACRO: None Signed by: Clement Estevez 05/09/2025 8:28 AM Dictation workstation: [id number] Transthoracic Echo Complete [facility], [address] [place] [address] and TRANSTHORACIC ECHOCARDIOGRAM REPORT Patient Name: FAWN Leigh GAVINSELIN Reading Physician: [id number] Noelle Roberts MD Study Date: 05/13/2025 Ordering Provider: [id number] LAY WALDROP MRN/PID: [id number] Fellow: Nurse: Date of /Age: 5 1935 Winemaker: Enmanuel sarmiento RDCS, RVT Gender assigned at M Additional Staff: : Height: 167.64 cm Admit Date: 05/10/2025 Weight: 66.23 kg Admission Status: Inpatient - STAT BSA / BMI: 1.75 m2 / 23.57 kg/m2 Blood Pressure: 120/77 mmHg Department Location: [place] [address] Study Type: TRANSTHORACIC ECHO (TTE) COMPLETE Diagnosis/ICD: Syncope-R55 Indication: syncopal work-up CPT Code: Echo Complete w Full Doppler-08680 Patient History: Pertinent History: HTN, HLD, TIA, [...] not well visualized. Unable to determine right ventricularsystolic function. Right Atrium: The right atrial size [...] is structurally normal. There is mild tricuspid regurgitation.The Doppler estimated right ventricular systolic pressure (RVSP) [...] previous echocardiogram(s): Compared with study dated 07/31/2024, [facility], no significant changes from the report, images not currently available. Note the priorexam reported mildly enlarged RV which was not well seen today. In addition there was previously anagitated saline contrast study that was neative for [...] regurgitation. 6. Compared with study dated 07/31/2024, [facility], no significant changes from the report, [...] LA Area A2C: 12.1 cm2 LA Major [place] A4C: 4.4 cm LA Major [place] A2C: 4.8 cm RIGHT ATRIUM: Normal Ranges: [...] (<8.0) PulmV Sys Neetu: 67.70 cm/s PulmV Salomno Neetu: 42.80 cm/s PulmV S/D Neetu: 1.60 [...] Neetu: 1.60 PulmV Sys Neetu: 67.70 cm/s [id number] Noelle Roberts MD Electronically signed on 05/13/2025 at 4:09:55 PM Final DATA: EKG: QTC Encounter Date: 05/10/25 ECG 12 lead Result Value Ventricular Rate 72 Atrial Rate 72 MO Interval 190 QRS Duration 104 QT Interval 394 QTC Calculation(Bazett) 431 P Fox[place] 31 R Fox[place] -15 T [place] 44 QRS Count 12 Q Onset 210 P Onset 115 P Offset 178 T Offset 407 QTC Fredericia 418 Narrative Normal sinus rhythm Normal ECG When compared with ECG of 10-MAY-2025 13:54, No significant change was found See ED provider note for full interpretation and clinical correlation Confirmed by Yolanda Garcia ([id number]) on 05/11/2025 3:47:31 AM Anti-psychotics in 48 [...] They stated that they had discussed this withtheir before and come to this decision. Patient [...] BP 128/88 HR 88, sitting BP 138/70 HR80 - EKG/trops negative on admission, QTC 431, [...] treat or investigate in geriatric population unless TSH>8 Can be rechecked in 6 weeks as [...] Goals of Care: -Health care power of contracts attorney: Diya () -Living will: present Code status: [...] over the weekend, please page Geriatrics pager [phone] Robb Rossi, PGY3 Family Medicine I saw and evaluated the patient. I personally obtained the de jesus and critical portions of the historyand physical exam or was physically present for de jesus and critical portions performed by the resident/ med student. I reviewed the resident s / med student's documentation and discussed the patient with them. I agree with the resident's / medical student's medical decision making as documented in their note, which includes my edits. Nolan Carson MD [1] Current Facility-Administered Medications Medication Dose Route Frequency Provider Last Rate Last Admin acetaminophen (Tylenol) tablet 650 mg 650 mg oral q6h [facility] Daryl Dickson 650 mg at 05/13/25 1441 [...] intravenous Continuous Rajwinder Omer MD 100 mL/hr at05/15/25 0618 100 mL/hr at 05/15/25 06 enoxaparin (Lovenox) syringe 30 mg 30 mg subcutaneous q12h [facility] Rajwinder Omer MD 30 mg at 05/14/25 [...] Evelyn Granda MD 12.5 mg at 05/13/25 09 ondansetron (Zofran) tablet 4 mg 4 mg oral q8h PRN Daryl Dickson Or ondansetron (Zofran) injection 4 mg 4 mg intravenous q8h PRN Daryl Dickson oxyCODONE (Roxicodone) immediate release tablet 2.5 mg 2.5 mg oral q6h PRN Daryl Dickson 2.5 mg at 05/11/25 184 oxyCODONE (Roxicodone) immediate release tablet 5 mg 5 mg oral q4h PRN Daryl Dickson 5 mg at 252 oxygen (O2) therapy inhalation Continuous - O2/gases [...] tablet oral Nightly PRN Rajwinder Omer MD * Missy Floyd MD - 05/14/2025 5:23 PM EDT Images from the original note were not included. Subjective Patient failed barium swallow today. Speech pathology recommending patient be NPO with feeding aggressive oral or assuming risk of aspiration w/ continued PO intake. Patient remains afebrile and hemodynamically stable. No acute concerns. Pain well controlled. Patient's home fretted instrument maker hand was visiting him at the bedside when the team stopped in to see him. Tried discussing the swallowing study result with him. He knew that the speech therapist said it isunsafe for him to eat. And states he [...] due to pain, muscle strength 5/5 bilateral lowerextremities Skin: General: Skin is warm. Capillary Refill: [...] (98.2 F) Resp 16 17 15 Vitals: 05/10/252156 Weight: 66.2 kg (146 lb) Relevant Results Lab Results Component Value Date TSH 4.88 (H) 05/12/2025 [id number] 283 05/12/2025 VITD25 18 (L) 05/12/2025 Results [...] C4-C5 as well as moderate facet disease Increasedlordosis of the cervical spine. MACRO: None Signed by: Clement Estevez 05/09/2025 8:28 AM Dictation workstation: [id number] Transthoracic Echo Complete [facility], [address] [place] [address] and TRANSTHORACIC ECHOCARDIOGRAM REPORT Patient Name: FAWN Lee Physician: [id number] Noelle Roberts MD Study Date: 05/13/2025 Ordering Provider: [id number] LAY WALDROP MRN/PID: [id number] Fellow: Nurse: Date of /Age: 5 1935 Winemaker: Enmanuel sarmiento RDCS, RVT Gender assigned at M Additional Staff: : Height: 167.64 cm Admit Date: 05/10/2025 Weight: 66.23 kg Admission Status: Inpatient - STAT BSA / BMI: 1.75 m2 / 23.57 kg/m2 Blood Pressure: 120/77 mmHg Department Location: [place] [address] Study Type: TRANSTHORACIC ECHO (TTE) COMPLETE Diagnosis/ICD: Syncope-R55 Indication: syncopal work-up CPT Code: Echo Complete w Full Doppler-44859 Patient History: Pertinent History: HTN, HLD, TIA, [...] not well visualized. Unable to determine right ventricularsystolic function. Right Atrium: The right atrial size [...] is structurally normal. There is mild tricuspid regurgitation.The Doppler estimated right ventricular systolic pressure (RVSP) [...] previous echocardiogram(s): Compared with study dated 07/31/2024, [facility], no significant changes from the report, images not currently available. Note the priorexam reported mildly enlarged RV which was not well seen today. In addition there was previously anagitated saline contrast study that was neative for [...] regurgitation. 6. Compared with study dated 07/31/2024, [facility], no significant changes from the report, [...] LA Area A2C: 12.1 cm2 LA Major [place] A4C: 4.4 cm LA Major [place] A2C: 4.8 cm RIGHT ATRIUM: Normal Ranges: [...] Neetu: 1.60 PulmV Sys Neetu: 67.70 cm/s [id number] Noelle Roberts MD Electronically signed on 05/13/2025 at 4:09:55 PM Final DATA: EKG: QTC Encounter Date: 05/10/25 ECG 12 lead Result Value Ventricular Rate 72 Atrial Rate 72 MO Interval 190 QRS Duration 104 QT Interval 394 QTC Calculation(Bazett) 431 P [place] 31 R Fox[place] -15 T [place] 44 QRS Count 12 Q Onset 210 P Onset 115 P Offset 178 T Offset 407 QTC Fredericia 418 Narrative Normal sinus rhythm Normal ECG When compared with ECG of 10-MAY-2025 13:54, No significant change was found See ED provider note for full interpretation and clinical correlation Confirmed by Yolanda Garcia ([id number]) on 05/11/2025 3:47:31 AM Anti-psychotics in 48 hours: Opioids/Benzodiazepines in 48 hours: Yes (opioids) Anticholinergics on board: No Restraints:No Indwelling catheters: Yes - bed bound Last BM: 05/14 UO in 24 hours: 500 mL Activity in the past 24 hours: Bed-bound Need for ambulatory devices: Unknown Assessment/Plan Fawn Campso is a 89 y.o. male on day [...] They stated that they had discussed this withtheir before and come to this decision. Patient [...] BP 128/88 HR 88, sitting BP 138/70 HR80 - EKG/trops negative on admission, QTC 431, [...] treat or investigate in geriatric population unless TSH>8 Can be rechecked in 6 weeks as an outpatient 8. Dysphagia 9. Goals of care - Failed barium swallow on 05/14. Severe oropharnygeal dysphagia and risk for aspiration - Speech pathology recommending patient be NPO. Currently is on D51/2 normal saline - discussed the option of NGT with tube feeds and going to SNF with this and working with ST at [facility]. Could have MBS in 2-3 weeks after discharge to see if his swallowing has improved. Other option isresume oral intake with the understanding of high [...] Goals of Care: -Health care power of contracts attorney: Diya () -Living will: present Code status: [...] over the weekend, please page Geriatrics pager [phone] Reynaldo Navarro MD PGY-1 Internal Medicine Attending Addendum: Chart [...] tablet 650 mg 650 mg oral q6h [facility] Daryl Dickson 650 mg at 05/13/25 1441 [...] sodium chloride infusion 100 mL/hr intravenous Continuous Rajwindre Omer MD 100 mL/hr at05/14/25 1151 100 mL/hr at 05/14/25 1151 enoxaparin (Lovenox) syringe 30 mg 30 mg subcutaneous q12h [facility] Rajwinder Omer MD 30 mg at 05/14/25 [...] PRN Daryl Dickson 2.5 mg at 05/11/25 184 oxyCODONE (Roxicodone) immediate release tablet 5 mg 5 mg oral q4h PRN Daryl Dickson 5 mg at oxygen (O2) therapy inhalation Continuous - O2/gases [...] Nightly Frida Granda MD 40 mg at 05/12/25 2125 sennosides (Senokot) tablet 8.6 mg 1 tablet oral Nightly PRN Rajwinder Omer MD * Criss Zaragoza, PT - 05/14/2025 1:09 PM EDT Physical Therapy Physical Therapy Treatment Patient Name: [...] risk due to function or environment, Intermittent mobilityassistance needed Evaluation/Treatment Tolerance: Patient tolerated treatment well Medical Staff Made Aware: Yes End of Session Communication: Bedside nurse Assessment Comment: Pt. demonstrates improvement in functional mobility this visit. Goal for next session is OOB to chair. Remains appropraite for high intensity therapy to ensure safety and maximizeindependence. End of Session Patient Position: Bed, 3 rail up, Alarm on PT Plan Inpatient/Swing Bed or Outpatient: Inpatient PT Plan Treatment/Interventions: Bed mobility, Transfer training, Gait training, Stair training, Balance training, Strengthening, Endurance training, Therapeutic exercise, Therapeutic activity, Home exerciseprogram, Positioning PT Plan: Ongoing PT PT Frequency: [...] hip extension. 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 Assessment: Clinical bedside swallow evaluation completed. Pt cleared for evaluation by RN. Received awake/alert and upright in bed for session. A&Ox4. Oral mechanism examination WNL. Consistently cooperative/able to follow commands and responded appropriately to conversation/questions by WARD SERVICE SUPERVISOR. Endorses difficulty swallowing characterized by coughing w/ liquids the previous date; pt reports dysphagia not at baseline. Weak volitional cough prior to administration of PO trials Trials of ice chips, tsp sips water, single/consecutive sips water via straw, and 3 oz protocol viacup were given. Normal oral management of all [...] care until MBSS can be completed. 10 icechips per hr allowed for pleasure, safe swallow stimulation, and after oral care to prevent buildupof bacteria within the oropharynx. RN/MD aware. Extensive education/treatment provided to pt following completion of session re: results/recommendations and dysphagia POC. Pt verbalized understanding. Recommendations: NPO with frequent aggressive oral care. 10 ice chips/hr allowed for pleasure, safe swallow stimulation, and after oral care to prevent buildup of bacteria within the oropharynx MBSS to instrumentally evaluate swallow function/determine least restrictive diet; will complete asorders placed/radiology schedule permits Goal: Pt/caregiver/family will demonstrate [...] 06/14/2025 Status: Goal Initiated this date Plan: WARD SERVICE SUPERVISOR Services Indicated: Yes Frequency: 2x per week Discussed POC with patient WARD SERVICE SUPERVISOR - OK to Discharge Pain: 0-10 0 = No pain. Inpatient Education: Extensive education provided to patient regarding current swallow function, recommendations/results, and POC. Consultations/Referrals/Coordination of Services: N/A * Keren Mcclelland PT - 05/13/2025 2:31 PM EDT Physical Therapy Therapy Communication Note Patient Name: Fawn Campos Department: [place] [address] [facility] Today's Date: 05/13/2025 Discipline: Physical Therapy Missed Visit: PT Missed Visit: Yes Missed Visit Reason: Missed Visit Reason: Patient refused (Pt reports having increased pain and fatigeu this date and just finished getting cleaned up. Pt does report mobilizing earlier this date. Will reattempt PT as able.) RN aware. Missed Time: Attempt Keren Mcclelland PT, DPT * Rajwinder Omer MD - 05/13/2025 1:19 PM EDT [facility] TRAUMA SERVICE - PROGRESS NOTE Patient Name: Fawn Cameron Admit Date: [id number] : 1935 AGE: 89 y.o. 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 LOC (yes/no?): Yes Anticoagulant / Anti-platelet Rx? (for what dx?): ASA 81 Referring Facility Name (N/A for scene EMR run): [facility] INJURIES: Right orbital floor Mild buckled fracture [...] ppx: Home PPI for GERD - Dispo: [facility] care, pending acute rehab Seen and [...] due to pain, muscle strength 5/5 bilateral upperand lower extremities Skin: General: Skin is warm. [...] workup: EKG NSR, trop (-), pending orthostatics * Ilda Hutson, OT - 05/13/2025 10:53 AM EDT Occupational Therapy Evaluation/Treatment Patient Name: Fawn Campos Department: [place] [address] Room: [facility]- Today's Date: 05/13/25 Time Calculation Start Time: 837 Stop Time: 905 Time Calculation (min): 28 min Assessment: OT Assessment: difficulty I/ADLS, safety, fxnl mob Prognosis: Good Barriers to Discharge Home: Physical needs Physical Needs: 24hr mobility assistance needed, 24hr ADL assistance needed, High falls risk due tofunction or environment Evaluation/Treatment Tolerance: Patient tolerated treatment [...] Built-in shower seat Prior Function: Level of [place]: Independent with ADLs and functional transfers, Independent [...] (shoulder flex ~0-90 distal WFL) Outcome Measures: [facility] Daily Activity Putting on and taking off [...] assistance. (Progressing) Start: 05/13/25 Expected End: 06/03/25 * Zahira Douglas MD - 05/13/2025 8:13 AM EDT Images from the original note were not [...] due to pain, muscle strength 5/5 bilateral lowerextremities Skin: General: Skin is warm. Capillary Refill: [...] Component Value Date TSH 4.88 (H) 05/12/2025 [id number] 283 05/12/2025 VITD25 18 (L) 05/12/2025 Results [...] C4-C5 as well as moderate facet disease Increasedlordosis of the cervical spine. MACRO: None Signed by: Clement Estevez 05/09/2025 8:28 AM Dictation workstation: [id number] ECG 12 lead Normal sinus rhythm Normal ECG When compared with ECG of 07-DEC-2023 09:54, Premature atrial complexes are no longer Present See ED provider note for full interpretation and clinical correlation Confirmed by Brandee Hawkins ([id number]) on 05/11/2025 1:16:43 PM XR pelvis With [place] Judet views Narrative: Interpreted By: Wanda Montalvo, and Spenser Jenkins STUDY: XR PELVIS WITH INLET OUTLET JUDET VIEWS; ; 05/11/2025 4:18 am INDICATION: Signs/Symptoms:eval. COMPARISON: CT chest abdomen pelvis 05/10/2025. ACCESSION NUMBER(S): [id number] ORDERING CLINICIAN: LEONARDO BERGER FINDINGS: Five view [...] MD (PGY-3). This study was interpreted at [place], [place]. MACRO: None Signed by: Wanda Montalvo 05/11/2025 5:01 AM Dictation workstation: [id number] XR chest 1 view Narrative: STUDY: Chest Radiograph; 05/11/2025 1:13AM INDICATION: Evaluation for surgery trauma. COMPARISON: 09/23/2022 XR chest ACCESSION NUMBER(S): [id number] ORDERING CLINICIAN: SANTIAGO MENENDEZ TECHNIQUE: Frontal chest [...] and clinical correlation Confirmed by Yolanda Garcia ([id number]) on 05/11/2025 3:47:[address] head wo IV contrast Narrative: Interpreted By: Wanda Montalvo and Omar Mahmoud STUDY: CT HEAD WO IV CONTRAST; 05/10/2025 11:27 pm INDICATION: Signs/Symptoms:Trauma, intracranial bleeding. Stability scan. COMPARISON: CT head without IV contrast 05/10/2025 3:03 p.m.. ACCESSION NUMBER(S): [id number] ORDERING CLINICIAN: CARRI GREER TECHNIQUE: Noncontrast axial [...] MD (PGY-3). This study was interpreted at [place], [place]. MACRO: None Signed by: Wanda Montlavo 05/11/2025 12:03 AM Dictation workstation: [id number] DATA: EKG: QTC Encounter Date: 05/10/25 ECG 12 lead Result Value Ventricular Rate 72 Atrial Rate 72 MO Interval 190 QRS Duration 104 QT Interval 394 QTC Calculation(Bazett) 431 P [place] 31 R Fox[place] -15 T [place] 44 QRS Count 12 Q Onset 210 P Onset 115 P Offset 178 T Offset 407 QTC Fredericia 418 Narrative Normal sinus rhythm Normal ECG When compared with ECG of 10-MAY-2025 13:54, No significant change was found See ED provider note for full interpretation and clinical correlation Confirmed by Yolanda Garcia ([id number]) on 05/11/2025 3:47:31 AM Anti-psychotics in 48 hours: Opioids/Benzodiazepines in 48 hours: Anticholinergics on board:No Restraints:No Indwelling catheters:Yes - bed bound Last BM: AM today UO in 24 hours: 150ml Activity in the past 24 hours: Need for ambulatory devices: Assessment/Plan Fawn Lu Arredondoselin Campos is a 89 y.o. male on [...] BP 128/88 HR 88, sitting BP 138/70 HR80 - EKG/trops negative on admission, QTC 431, [...] treat or investigate in geriatric population unless TSH>8 Needs to be follow-up in the outpatient Care Transitions: -Recommended level for discharge: acute rehab -Home going considerations: lives alone with -Primary care physician: Don Barrera MD Goals of Care: -Health care power of contracts attorney: Diya () -Living will: present Code status: FULL CODE Geriatric medicine will continue to follow the patient. Thank you for allowing geriatric medicine to be involved in the care of your patient. Geriatric medicine consultation team is available during work hours Sunday through Sunday. For any emergency issues requiring immediate assistance over the weekend, please page Geriatrics pager [phone] Robb Rossi DO PGY3 - Family Medicine I saw and evaluated the patient. I personally obtained the de jesus and critical portions of the historyand physical exam or was physically present for [...] tablet 650 mg 650 mg oral q6h SILVANO Daryl Rolleight 650 mg at 05/13/25 025 bisacodyl (Dulcolax) EC tablet 5 mg 5 [...] PRN Daryl Dickson 2.5 mg at 05/11/25 184 oxyCODONE (Roxicodone) immediate release tablet 5 mg 5 mg oral q4h PRN Daryl Dickson 5 mg at 252 oxygen (O2) therapy inhalation Continuous - O2/gases Daryl Dickson oxymetazoline (Afrin) 0.05 % nasal spray 2 spray 2 spray Each Nostril q12h PRN Daryl Dickson pantoprazole (ProtoNix) EC tablet 40 mg 40 mg oral Daily before breakfast Daryl Dickson 40 mg at 05/13/25 0617 polyethylene glycol (Glycolax, Miralax) packet 17 g 17 g oral Daily Darly Dickson 17 g at 05/12/25 0940 pravastatin (Pravachol) tablet 40 mg 40 mg oral Nightly May Evelyn Granda MD 40 mg at 05/12/25 2125 sennosides (Senokot) tablet 8.6 mg 1 tablet oral Nightly Yoav Forte MD * Lincoln Andrade, PT - 05/12/2025 1:21 PM EDT Physical Therapy Physical Therapy Physical Therapy Treatment Patient Name: Fawn Campos Today's Date: 05/12/2025 Time Calculation Start Time: 1152 Stop Time: 1221 Time Calculation (min): 29 min [id number] Assessment/Plan PT Assessment PT Assessment Results: Decreased [...] risk due to function or environment, Intermittent mobilityassistance needed End of Session Communication: Bedside nurse Assessment Comment: patient with improved tolerance to activity. Pain continues to be limiting factor. patient is motivated to improve End of Session Patient Position: Bed, 2 rail up (positioned on partial right side for comfort) PT Plan Treatment/Interventions: Bed mobility, Transfer training, Gait training, Stair training, Balance training, Strengthening, Endurance training, Therapeutic exercise, Therapeutic activity, Home exerciseprogram, Positioning PT Plan: Ongoing PT PT Frequency: [...] today supine and sitting with no drop inBP Objective Pain: Pain Assessment Pain Assessment: (patient [...] come to stand with mod/max assist and remainstanding for 10 seconds. Returned to sitting. Performed additional sit to stand to walker with assist from draw sheet, mod assist to come to stand and able to stand at walker with min assist for 20 seconds. Once returned to sitting, patient reports feeling light headed. Blood pressure stable. Outcome Measures: [facility] Basic Mobility Turning from your back to [...] on own Body Mechanics, taught by Lincoln Andrade, PT at 05/12/2025 1:19 PM. 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 male on day 1 of admission presenting with Fall, initial encounter. TCC contacted by Fatou from [facility] stating that they would be willing to take patient for acute rehab. Fatou requesting OT eval and updated notes during patient's hospital stay. TCC acknowledged request and the informed patient and his spouse of [place]'s acceptance and they were both agreeable to utilizing the facility after discharge. Provider made aware. OT contacted in regards to need for eval and assigned staff to patient. TCC will continue to follow patient for discharge planning. DAMIR Rivers * Yoav Forte MD - 05/12/2025 9:26 AM EDT [facility] TRAUMA SERVICE - PROGRESS NOTE Patient Name: Fawn Cameron Admit Date: [id number] : 1935 AGE: 89 y.o. 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 LOC (yes/no?): Yes Anticoagulant / Anti-platelet Rx? (for what dx?): ASA 81 Referring Facility Name (N/A for scene EMR run): [facility] INJURIES: Right orbital floor Mild buckled fracture [...] due to pain, muscle strength 5/5 bilateral upperand lower extremities Skin: General: Skin is warm. [...] evaluation, neuromonitoring, SCDs, Lovenox at 48 hours. * Iliana Head - 05/11/2025 6:23 PM EDT 05/11/25 1821 Financial Resource Strain How hard is it for you to pay for the very basics like food, housing, medical care, and heating? Not hard Housing Stability In the last 12 months, was there a time when you were not able to pay the mortgage or rent on time?N In the past 12 months, how many times have you moved where you were living? 0 At any time in the past 12 months, were you homeless or living in a custodial (including now)? N Transportation Needs In the past 12 months, has lack of transportation kept you from medical appointments or from getting medications? no In the past 12 months, has lack of transportation kept you from meetings, work, or from getting things needed for daily living? No Fawn J Obrecht Andres is a 89 y.o. male on [...] a supplement and sees Dr. Barrera at [facility]. Patient denies any housing, transportation or financial concerns. Patient made aware of PT's recommendation of high intensity rehab and iswilling to go to acute rehab. TCC gave patient and his a list of nearby acute nursing facilities for review and they selected [facility] and [facility] as their top choices. TCC to send referral via [employer], awaiting response. TCC will continue to follow patient for discharge planning. NOK: Diya Nisah Dialysis: 0 O2: 0 Pharmacy: [facility] (Mail Order) or [facility] Home Health: 0 Iliana Head, TCC * Serina Swanson, PT - 05/11/2025 3:22 PM EDT Physical Therapy Physical Therapy Evaluation & Treatment Patient Name: Andres Cameron Department: [facility] ED Room: [id number] Today's Date: 05/11/2025 Time Calculation Start Time: [...] risk due to function or environment, Intermittent mobilityassistance needed End of Session Communication: Bedside nurse Assessment Comment: Pt tolerated PT eval fair. At baseline is indep with mobility without AD, currently limited by pain, dec strength, balance and activity tolerance. Pt needing inc time to complete all mobility, unable to safely progress from standing to allow for pre-gait or ambulation. Team notif ied. End of Session Patient Position: Bed, 2 rail up (ED cart) IP OR SWING BED PT PLAN Inpatient or Swing Bed: Inpatient PT Plan Treatment/Interventions: Bed mobility, Transfer training, Gait training, Stair training, Balance training, Strengthening, Endurance training, Therapeutic exercise, Therapeutic activity, Home exerciseprogram, Positioning PT Plan: Ongoing PT PT Frequency: [...] level with bedroom/bathroom (pt remains on first floormostly, bedroom and bathroom on first floor) Home Access: Stairs to enter with rails Entrance Stairs-Number of Steps: 1 curb step with railing to porch and 1 additional threshold step in doorway Bathroom Shower/Tub: Walk-in shower Bathroom Equipment: Built-in shower seat Prior Level of Function: Prior Function Per Pt/Caregiver Report Level of [place]: Independent with ADLs and functional transfers, Independent [...] he no longer wanted on Outcome Measures: [facility] Basic Mobility Turning from your back to [...] sequencing mobility Education Comments No comments found. * Frida Granda MD - 05/11/2025 1:54 PM EDT [facility] TRAUMA SERVICE - PROGRESS NOTE Patient Name: Fawn Cameron Admit Date: [id number] : 1935 AGE: 89 y.o. 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 LOC (yes/no?): Yes Anticoagulant / Anti-platelet Rx? (for what dx?): ASA 81 Referring Facility Name (N/A for scene EMR run): [facility] INJURIES: Right orbital floor Mild buckled fracture [...] due to pain, muscle strength 5/5 bilateral upperand lower extremities Skin: General: Skin is warm. [...] evaluation, orthopedics evaluation, face evaluation and SCDs. * Kellee Osman, PharmD - 05/10/2025 11:46 PM EDT Pharmacy Medication History Review Fawn Campos is a 89 y.o. male admitted for No Principal Problem: There is no principalproblem currently on the Problem List. Please update the Problem List and refresh.. Pharmacy reviewed the patient's poyim-xn-vegolzvbb medications and allergies for accuracy. 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 Prior to Admission Medications Prescriptions Last [...] Admission MedRec Grid OARRS - none recent [facility] medication dispense report Medications ADDED: None Medications CHANGED: AREDS - updated frequency from Qday to BID Medications REMOVED/MARKED NOT TAKING: None Additional Comments: Patient only took 4 out of 8 methotrexate 2.5 mg tablets on 05/10/25 (takes on Sundays) Kellee Osman PharmD Transitions of Care Pharmacist 05/10/25 Secure Chat preferred If no response call [phone] or [employer] Rec documented in this [facility] Work Phone: 1(744) 499-500807-30-2025 Nurse Note* Mack Mckinley RN - 05/20/2025 1:24 PM EDT 1324 Report given to ANNA Perez at [facility]. SBAR given. Orders reviewed. operator supply timecommunicated and repeated back. [facility]07-30-2025 Nurse Note* Mack Mckinley RN - 05/20/2025 1:24 PM EDT 1324 Report given to ANNA Perez at [facility]. SBAR given. Orders reviewed. operator supply timecommunicated and repeated back. * Doyle Greene RN - 05/20/2025 7:47 AM EDT Pt handoff report provided to oncoming nurse to continue to monitor. Pt safety measures in place. * Greta Bai RN - 05/13/2025 6:51 PM EDT Pt was eating dinner and told RN he was having trouble swallowing certain foods and coughed and hadto spit them out. RN instructed pt and pts family to no longer eat or drink anything and food/drinkmoved away from patient. Primary team was notified. [facility] Work Phone: 1(353) 549-441107-30-2025 Hospital Discharge instructions* Discharge Instructions* Hien Ramesh PA-C - 05/20/2025 1:09 PM EDT [facility] DISCHARGE INSTRUCTIONS GENERAL INSTRUCTIONS 1) [...] sponge baths only and to avoid getting thearea of injury wet until your follow up [...] needed/desired. To follow up, please call the [facility] at to schedule your appointment. Do not hesitate to call our outpatient nurse coordinator at [phone] with any questions/concerns. The nurse will get [...] re-evaluation - Opthalmology: Recommend follow-up with [facility], within 1-2 weeks. Please call [phone] (EYES) to make appointment. - Primary Care Provider: Please follow up with your PCP within 1-2 weeks after discharge regarding your recent hospital admission. If you do not have a primary care provider, you may also call the hospital main number at [phone] and ask for a referral. 6) Please [...] following signs/symptoms: increased confusion, altered mental status, newnumbness or tingling, decreased sensation or movement, pain that is uncontrolled with pain medications, increased shortness of breath, chest pain/palpitations, or any other concerning signs/symptoms,please proceed to your nearest Emergency Department for further evaluation and management. documented in this [facility] Work Phone: 1(750) 538-912807-30-2025 Plan of care note* Care Plan - Mack Mckinley RN - 05/20/2025 11:02 AM EDT Problem: Skin Goal: Promote/optimize nutrition 05/20/2025 1101 [...] remain free from injury during this shift [facility] Work Phone: [phone]) 535-902607-30-2025 Miscellaneous Notes* Care Plan - Mack Mckinley RN - 05/20/2025 11:02 AM EDT Problem: Skin Goal: Promote/optimize nutrition 05/20/2025 1101 [...] remain free from injury during this shift * Care Plan - Mack Mckinley RN - 05/20/2025 11:00 AM EDT Problem: Skin Goal: Decreased wound size/increased tissue [...] remain free from injury during this shift * Care Plan - Doyle Greene RN - 05/20/2025 6:52 AM EDT The patient's goals for the shift include [...] fall by end of shift Outcome: Progressing * Care Plan - Juana Mclean RN - 05/19/2025 3:36 AM EDT The clinical goals for the shift include [...] by end of the shift Outcome: Progressing * Care Plan - Juana Mclean RN - 05/18/2025 4:34 AM EDT The clinical goals for the shift include [...] pain meds throughout the shift Outcome: Progressing * Care Plan - Homer Wei RN - 05/17/2025 6:03 PM EDT The patient's goals for the shift include The clinical goals for the shift include remain free from falls Problem: Pain Goal: Takes deep breaths with improved pain control throughout the shift Outcome: Met Goal: Turns in bed with improved pain control throughout the shift Outcome: Met * Care Cristian - Juana Mclean RN - 05/17/2025 4:24 AM EDT The clinical goals for the shift include [...] pain meds throughout the shift Outcome: Progressing * Care Plan - Homer Wei RN - 05/16/2025 6:20 PM EDT The patient's goals for the shift include The clinical goals for the shift include increase feed rate and remain HDS Problem: Safety - Adult Goal: Free from fall injury Outcome: Met Problem: Discharge Planning Goal: Discharge to home or other facility with appropriate resources Outcome: Met * Care Plan - Maliha Del Toro RN - 05/15/2025 6:37 PM EDT The patient's goals for the shift include safety The clinical goals for the shift include Pt will remian safe and HDS Over the shift, the patient did make progress toward the following goals. Pt sat in the chair for a couple hours today. Dobhoff inserted and awaiting to start feeds once pump available, city carrier assistant to see pt tomorrow morning and follow up. Still on 1L, desats to 88 on RA. Ptvoiding, had a BM, passing gas. Ongoing care, call light within reach, bed alarm in place * Care Plan - Treva Womack RN - 05/14/2025 11:26 PM EDT Problem: Skin Goal: Decreased wound size/increased tissue [...] clinical goals for the shift include 0900 * Care Plan - Maliha Del Toro RN - 05/14/2025 4:52 PM EDT The patient's goals for the shift include safety The clinical goals for the shift include pain management Over the shift, the patient did not make progress toward the following goals. Problem: Nutrition Goal: Nutrient intake appropriate for maintaining nutritional needs Outcome: Not Progressing Pt failed MBS, having difficulty making decision on what to do. Spoke with pt on what having an NGTwould consist of. Pt also requested provider call and discuss options, RN message trauma provider. Q2 turns, having BM, primofit in place. On IVF. Pt tolerated therapy better today than yesterday per pt and PT. Bed alarm in place, call light within reach, ongoing care * Care Plan - Arlette Oakley RN - 05/14/2025 12:01 AM EDT The clinical goals for the shift include pts pain ivis remian controlled through shift Problem: Pain - Adult Goal: Verbalizes/displays adequate comfort level or baseline comfort level Outcome: Progressing Problem: Safety - Adult Goal: Free from fall injury Outcome: Progressing * Care Plan - Greta Bai RN - 05/13/2025 4:58 PM EDT Problem: Skin Goal: Decreased wound size/increased tissue granulation at next dressing change Outcome: Progressing Goal: Participates in plan/prevention/treatment measures Outcome: Progressing Goal: Prevent/manage excess moisture Outcome: Progressing Flowsheets (Taken 05/13/2025 0648) Prevent/manage excess moisture: Moisturize dry skin Goal: [...] pts pain ivis remian controlled through shift * Care Plan - Arlette Oakley RN - 05/13/2025 12:45 AM EDT The clinical goals for the shift include Patient pain will be managed Problem: Pain - Adult Goal: Verbalizes/displays adequate comfort level or baseline comfort level Outcome: Progressing Problem: Safety - Adult Goal: Free from fall injury Outcome: Progressing * Hospital Course - Daryl Rolleight - 05/12/2025 12:02 AM EDT 89-year-old male status post 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 Patient was found to have right orbital floor and roof fracture, small right subdural hematomaand trace frontal/parietal subarachnoid hematoma, bilateral pubic rami [...] PT/OT and has been recommended SNF placement. * Significant Event - Iraj Avery MD - 05/11/2025 8:57 AM EDT Neurosurgery Sign-off and Final Recommendations All imaging [...] Iraj Avery MD PGY-1, Department of Neurosurgery [facility] 8:58 AM documented in this [facility] Work Phone: [phone]) [phone] Plan of care note* Care Plan - Mack Mckinley RN - 05/20/2025 11:00 AM EDT Problem: Skin Goal: Decreased wound size/increased tissue [...] remain free from injury during this shift [facility] Work Phone: [phone] 348-699707-30-2025 Nurse Note* Doyle Greene RN - 05/20/2025 7:47 AM EDT Pt handoff report provided to oncoming nurse to continue to monitor. Pt safety measures in place. [facility]07-30-2025 Plan of care note* Care Plan - Doyle Greene RN - 05/20/2025 6:52 AM EDT The patient's goals for the shift include [...] fall by end of shift Outcome: Progressing [facility] Work Phone: [phone]) 104-540807-29-2025 Plan of care note* Care Plan - Juana Mclean RN - 05/19/2025 3:36 AM EDT The clinical goals for the shift include [...] by end of the shift Outcome: Progressing [facility]07-28-2025 Plan of care note* Care Plan - Juana Mclean RN - 05/18/2025 4:34 AM EDT The clinical goals for the shift include [...] pain meds throughout the shift Outcome: Progressing [facility] Work Phone: [phone]) 318-958007-27-2025 Plan of care note* Care Plan - Homer Wei RN - 05/17/2025 6:03 PM EDT The patient's goals for the shift include The clinical goals for the shift include remain free from falls Problem: Pain Goal: Takes deep breaths with improved pain control throughout the shift Outcome: Met Goal: Turns in bed with improved pain control throughout the shift Outcome: Met [facility]07-27-2025 Plan of care note* Care Plan - Juana Mclean RN - 05/17/2025 4:24 AM EDT The clinical goals for the shift include [...] pain meds throughout the shift Outcome: Progressing [facility] Work Phone: [phone]) 162-153207-26-2025 Plan of care note* Care Plan - Homer Wei RN - 05/16/2025 6:20 PM EDT The patient's goals for the shift include The clinical goals for the shift include increase feed rate and remain HDS Problem: Safety - Adult Goal: Free from fall injury Outcome: Met Problem: Discharge Planning Goal: Discharge to home or other facility with appropriate resources Outcome: Met [facility] Work Phone: [phone]) 432-705307-26-2025 Note1. Please refer to detailed swallow study evaluation by speech pathologist. 2. No radiographic evidence of acute osseous abnormality within limits of current examination. I personally reviewed the images/study and I agree with the findings as stated by Prakash Jorge MD (vice president of advertising). This study was interpreted at [place], [place]. MACRO: None Signed by: Antonio Lane 05/16/2025 4:02 PM Dictation workstation: [id number] Consult note* Sherry CoronelDIXON, LD - 05/16/2025 9:42 AM EDTAssociated Order(s): IP CONSULT TO NUTRITION SERVICES Nutrition Initial Assessment: Nutrition Assessment Reason for Assessment: Provider consult order, Enteral assessment/recommendation (TF) (Nutrition assessment/recommendation) Patient is a 89 y.o. male presenting with Fall. Medical History[1] Surgical History[2] Nutrition History: Food and Nutrient History: NPO or decreased intake initial 4 days of hospital stay. WARD SERVICE SUPERVISOR recommendedNPO on 05/14/25. DHT placed 05/15 and Isosource 1.5 initiated @ 10ml/hr with plan to increase by 10mlevery 6hrs to goal of 50ml/hr. Noted per abd x-ray tube ends in proximal duodenum. Patient was lying in bed upon visit this morning. TF running @ 30ml/hr and patient tolerating well. 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 He described his usual weight as 150-151# (68.4kg) and noted a 4# weight loss at a prior doctor visit. Hebegan drinking 1 Boost shake 5 days a [...] (slightly depressed area between thumb and forefinger) Trapezius/Infraspinatus/Supraspinatus (Scapular Region): Defer Quadriceps: Mild-Moderate (mild depression [...] Vit B12: Lab Results Component Value Date [id number] 05/12/2025 , Iron Panel: Lab Results [...] swallowing diffiuclty obtained upon diet history and WARD SERVICE SUPERVISOR evaluations Nutrition Interventions/Recommendations Nutrition prescription for enteral nutrition Nutrition Recommendations: Individualized Nutrition Prescription Provided for : 1) Continue plan for Isosource 1.5 advanced every 6hrs by 10ml or as tolerated to goal of 50ml/hr. 2) Tube feed at goal provides ~900ml H20/d. Flush with 220ml H20 QID or adjust flushes per providerdiscretion. 3) Once patient tolerates tube feed at [...] [3] acetaminophen, 650 mg, nasoduodenal tube, q6h SILVANO cholecalciferol, 125 mcg, nasoduodenal tube, Daily cyanocobalamin, 1,000 mcg, nasoduodenal tube, Daily enoxaparin, 30 mg, subcutaneous, q12h SILVANO levETIRAcetam, 500 mg, nasoduodenal tube, BID metoprolol tartrate, 12.5 mg, nasoduodenal tube, BID pantoprazole, 40 mg, oral, Daily before breakfast polyethylene glycol, 17 g, nasoduodenal tube, Daily pravastatin, 40 mg, nasogastric tube, Nightly [4] [5] PRN medications: bisacodyl, lidocaine, ondansetron OR ondansetron, oxyCODONE, oxyCODONE, sennosides [facility]07-26-2025 Consult note* Sherry Coronel RDN, LD - 05/16/2025 9:42 AM EDTAssociated Order(s): IP CONSULT TO NUTRITION SERVICES Nutrition Initial Assessment: Nutrition Assessment Reason for Assessment: Provider consult order, Enteral assessment/recommendation (TF) (Nutrition assessment/recommendation) Patient is a 89 y.o. male presenting with Fall. Medical History[1] Surgical History[2] Nutrition History: Food and Nutrient History: NPO or decreased intake initial 4 days of hospital stay. WARD SERVICE SUPERVISOR recommendedNPO on 05/14/25. DHT placed 05/15 and Isosource 1.5 initiated @ 10ml/hr with plan to increase by 10mlevery 6hrs to goal of 50ml/hr. Noted per abd x-ray tube ends in proximal duodenum. Patient was lying in bed upon visit this morning. TF running @ 30ml/hr and patient tolerating well. 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 He described his usual weight as 150-151# (68.4kg) and noted a 4# weight loss at a prior doctor visit. Hebegan drinking 1 Boost shake 5 days a [...] (slightly depressed area between thumb and forefinger) Trapezius/Infraspinatus/Supraspinatus (Scapular Region): Defer Quadriceps: Mild-Moderate (mild depression [...] Vit B12: Lab Results Component Value Date [id number] 05/12/2025 , Iron Panel: Lab Results [...] 15 Flush frequency: Every 6 hours 05/15/25 172 Estimated Needs: Total Energy Estimated Needs in [...] swallowing diffiuclty obtained upon diet history and WARD SERVICE SUPERVISOR evaluations Nutrition Interventions/Recommendations Nutrition prescription for enteral nutrition Nutrition Recommendations: Individualized Nutrition Prescription Provided for : 1) Continue plan for Isosource 1.5 advanced every 6hrs by 10ml or as tolerated to goal of 50ml/hr. 2) Tube feed at goal provides ~900ml H20/d. Flush with 220ml H20 QID or adjust flushes per providerdiscretion. 3) Once patient tolerates tube feed at continuous goal for at least 24hrs can consider transition to cycled feeds @ 75ml/hr x 16hrs to allow 8hrs off during the day. Nutrition Interventions/Goals: Enteral Intake: Management of delivery rate of enteral nutrition Goal: Isosource 1.5 @ 50ml/hr = 1800kcal, 82g protein and 917ml H20/d. Education Documentation Nutrition Related Education, taught by Sherry Coronel RDN, LD at 05/16/2025 10:42 AM. Learner: Patient Readiness: [...] [3] acetaminophen, 650 mg, nasoduodenal tube, q6h SILVANO cholecalciferol, 125 mcg, nasoduodenal tube, Daily cyanocobalamin, 1,000 mcg, nasoduodenal tube, Daily enoxaparin, 30 mg, subcutaneous, q12h SILVANO levETIRAcetam, 500 mg, nasoduodenal tube, BID metoprolol tartrate, 12.5 mg, nasoduodenal tube, BID pantoprazole, 40 mg, oral, Daily before breakfast polyethylene glycol, 17 g, nasoduodenal tube, Daily pravastatin, 40 mg, nasogastric tube, Nightly [4] [5] PRN medications: bisacodyl, lidocaine, ondansetron OR ondansetron, oxyCODONE, oxyCODONE, sennosides * Hayley Chang RN - 05/13/2025 4:57 PM EDTAssociated Order(s): WOUND OSTOMY NURSING CONSULT Images from [...] 05/13/2025 11:24 AM Wound Image Site Assessment Red;[place] Griselda-Wound Assessment Dry Wound Length (cm) 2 [...] Due to linear presentation, likely IV or director of medical services line that caused skin changes. Area still [...] injury. Hayley Chang RN 05/13/2025 4:57 PM * Robb Rossi DO - 05/12/2025 8:48 AM EDTAssociated Order(s): Inpatient consult to Geriatric Medicine Inpatient consult to Geriatric Medicine Consult performed by: Robb Rossi DO Consult ordered by: Kristy Giraldo DO Primary Team: Trauma Admit Date: 05/10/2025 Emergency Contact: Extended Emergency Contact Information Primary Emergency Contact: Diya Cameron Address: [facility] [place] Gee [address] Mobile Relation: Power of Customer Service Teller Certified Fraud Examiner needed? No Reason For Consult: advanced age, frequent falls History Of Present Illness: Andres Cameron is a 89 y.o. male with h/o AAA, infrarenal aneurysm, HTN, HLD, CAD (on ASA) who presents after an unwitnessed fall on Sunday05/09/25. 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 Workup revealed injuries to the R orbital floor, Mild buckled fracture of the RT anterior cranial floor/orbital roof, Small RT (2 mm) subdural hematoma, Trace right frontal subarachnoid hematoma, Bilateral pubic rami fractures with extension into the acetabular wall, Nondisplaced sacral ala fracture on right. Cardiac workup in the ED was negative for OK or arhythmia. Pt has been evaluated by trauma surgery, orthopedic surgery, ENT and ophthalmology and no surgical intervention has been recommended. PT/OT is recommending high- intensity acute rehab on discharge. 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 [place] Cognitive Assessment (MoCA) Not on file. Geriatric [...] due to pain, muscle strength 5/5 bilateral upperand lower extremities Skin: General: Skin is warm. Capillary Refill: Capillary refill takes less than 2 seconds. Comments: Skin tears present on the dorsal right hand/knuckles and forearm without any active bleeding, wrapped with gauze; bilateral forearm ecchymoses Relevant Results Lab Results Component Value Date TSH 2.99 09/01/2024 [id number] 314 11/20/2024 Results from last 7 days [...] C4-C5 as well as moderate facet disease Increasedlordosis of the cervical spine. MACRO: None Signed by: Clement Estevez 05/09/2025 8:28 AM Dictation workstation: [id number] ECG 12 lead Normal sinus rhythm Normal ECG When compared with ECG of 07-DEC-2023 09:54, Premature atrial complexes are no longer Present See ED provider note for full interpretation and clinical correlation Confirmed by Brandee Hawkins ([id number]) on 05/11/2025 1:16:43 PM XR pelvis With [place] Judet views Narrative: Interpreted By: Wanda Montalvo and Omar Mahmoud STUDY: XR PELVIS WITH INLET OUTLET JUDET VIEWS; ; 05/11/2025 4:18 am INDICATION: Signs/Symptoms:eval. COMPARISON: CT chest abdomen pelvis 05/10/2025. ACCESSION NUMBER(S): [id number] ORDERING CLINICIAN: LEONARDO BERGER FINDINGS: Five view [...] MD (PGY-3). This study was interpreted at [place], [place]. MACRO: None Signed by: Wanda Montalvo 05/11/2025 5:01 AM Dictation workstation: [id number] XR chest 1 view Narrative: STUDY: Chest Radiograph; 05/11/2025 1:13AM INDICATION: Evaluation for surgery trauma. COMPARISON: 09/23/2022 XR chest ACCESSION NUMBER(S): [id number] ORDERING CLINICIAN: SANTIAGO MENENDEZ TECHNIQUE: Frontal chest [...] and clinical correlation Confirmed by Yolanda Garcia ([id number]) on 05/11/2025 3:47:[address] head wo IV contrast Narrative: Interpreted By: Wanda Montalvo, and Spenser Jenkins STUDY: CT HEAD WO IV CONTRAST; 05/10/2025 11:27 pm INDICATION: Signs/Symptoms:Trauma, intracranial bleeding. Stability scan. COMPARISON: CT head without IV contrast 05/10/2025 3:03 p.m.. ACCESSION NUMBER(S): [id number] ORDERING CLINICIAN: CARRI GREER TECHNIQUE: Noncontrast axial [...] MD (PGY-3). This study was interpreted at [place], [place]. MACRO: None Signed by: Wanda Montalvo 05/11/2025 12:03 AM Dictation workstation: [id number] Head/Brain Imaging === Results for orders placed during the hospital encounter of 05/10/25 === CT head wo IV contrast [[id number]] 05/10/2025 Status: Normal Redemonstration of minimally displaced [...] MD (PGY-3). This study was interpreted at [place], [place]. MACRO: None Signed by: Wanda Montalvo 05/11/2025 12:03 AM Dictation workstation: [id number] No results found for this or any previous visit. DATA: EKG: QTC Encounter Date: 05/10/25 ECG 12 lead Result Value Ventricular Rate 72 Atrial Rate 72 MO Interval 190 QRS Duration 104 QT Interval 394 QTC Calculation(Bazett) 431 P [place] 31 R [place] -15 T [place] 44 QRS Count 12 Q Onset 210 P Onset 115 P Offset 178 T Offset 407 QTC Fredericia 418 Narrative Normal sinus rhythm Normal ECG When compared with ECG of 10-MAY-2025 13:54, No significant change was found See ED provider note for full interpretation and clinical correlation Confirmed by Yolanda Garcia ([id number]) on 05/11/2025 3:47:31 AM Anti-psychotics in 48 [...] Goals of Care: -Health care power of contracts attorney: Diya () -Living will: present Code status: FULL CODE Geriatric medicine will continue to follow the patient. Thank you for allowing geriatric medicine to be involved in the care of your patient. Geriatric medicine consultation team is available during work hours Sunday through Sunday. For any emergency issues requiring immediate assistance over the weekend, please page Geriatrics pager [phone] Consult Billing Time Prep time on date of patient encounter(minutes): Time directly with patient/family/caregiver(minutes): Documentation time(minutes): TOTAL TIME(minutes): Robb Rossi DO PGY3 Family Medicine [1] Current Facility-Administered Medications Medication Dose Route Frequency Provider Last Rate Last Admin acetaminophen (Tylenol) tablet 650 mg 650 mg oral q6h SILVANO Daryl Dickson 650 mg at 05/12/25 0616 levETIRAcetam (Keppra) tablet 500 mg 500 mg oral BID February Evelyn Granda MD 500 mg at 05/11/252139 metoprolol tartrate (Lopressor) tablet 12.5 mg 12.5 mg oral BID February Evelyn Granda MD 12.5 mg at 05/11/252139 ondansetron (Zofran) tablet 4 mg 4 mg oral q8h PRN Daryl Dickson Or ondansetron (Zofran) injection 4 mg 4 mg intravenous q8h PRN Daryl Dickson oxyCODONE (Roxicodone) immediate release tablet 2.5 mg 2.5 mg oral q6h PRN Daryl Dickson 2.5 mg at 05/11/251848 oxyCODONE (Roxicodone) immediate release tablet 5 mg 5 mg oral q4h PRN Daryl Dickson 5 mg at oxygen (O2) therapy inhalation Continuous PRN - O2/gases Daryl Dickson oxymetazoline (Afrin) 0.05 % nasal spray 2 spray 2 spray Each Nostril q12h PRN Daryl Dickson pantoprazole (ProtoNix) EC tablet 40 mg 40 mg oral Daily before breakfast Daryl Dickson 40 mg at 05/12/25 0616 polyethylene glycol (Glycolax, Miralax) packet 17 g 17 g oral Daily Daryl Randolph pravastatin (Pravachol) tablet 40 mg 40 mg oral Nightly February Evelyn Granda MD 40 mg at 05/11/252139 Current Outpatient Medications Medication Sig Dispense Refill alfuzosin (Uroxatral) 10 mg 24 hr tablet TAKE 1 TABLET BY MOUTH ONCE DAILY DO NOT CRUSH, CHEW, OR SPLIT 90 tablet 3 amitriptyline (Elavil) 10 mg tablet Take 1 tablet (10 mg) by mouth once daily at bedtime. 90 tablet3 amLODIPine (Norvasc) 5 mg tablet Take 1 [...] de jesus and critical portions of the historyand physical exam or was physically present for [...] in this hospital; stay. Zahira Douglas MD * Miguel Resendiz MD - 05/11/2025 1:17 AM EDT ORTHOPAEDIC SURGERY CONSULT NOTE HPI: Orthopaedic Problems/Injuries: [...] Dr. Kristy Ramos in 2 weeks. Call [phone] to schedule appointment. - Please don't hesitate to page with questions DISPOSITION: Per primary, pending trial of ambulation This patient was staffed with the attending physician, Dr. Kristy Resendiz MD Orthopedic Surgery PGY-2 [facility] While admitted, this patient will be followed by the Orthopedic Trauma Team. Please contact the residents listed below with any questions. For urgent matters at any time, or for any needs between 6 PM and 6 AM Sunday through Sunday, on weekends, or on holidays, please page [place] [phone]. Trauma: First Call: Antonio Guzman, PGY-1/Heike Arzate PGY-1 Second Call: Sally Cutler, PGY-2 Third Call: Chente Ricci, PGY-3 Cosigned by Kristy Ramos MD at 05/11/2025 1:07 PM EDT * Riaz Carrillo MD - 05/10/2025 11:49 PM EDTAssociated Order(s): IP CONSULT TO ENT ENT DEPARTMENT CONSULTATION NOTE Name: Fawn Cameron : 1935 Consulting Attending: Carri Greer MD;Leonardo* Reason for Consult: Orbital roof fracture Patient History of Present Illness 89 y.o. male presented to [facility] on 05[facility]10 after sustaining injuries from a ground level fall which took place while walking into the hospital. On secondary survey significant head and neck injuries included R orbital roof fracture (non- displaced) and possible R orbital floor fracture (non-displaced [...] smoke. You may use saline nasal spray ([place]) and Afrin as needed for congestion and bleeding. If using Afrin please take as permitted on the bottle (for every 3 days of use you must take a 1 day holiday before using it again). Note not final until signed by an attending. Riaz Carrillo MD - PGY2 Otolaryngology - Head and Neck Surgery Head & Neck team phone: [phone] ENT consult pager: [phone] Pediatric ENT pager: [phone] ENT Outpatient scheduling number: [phone] [1] Past Medical History: Diagnosis Date Arthritis [...] Name Age of Onset Heart murmur Mother [place] Obrecht Hyperlipidemia Mother [place] Obrecht Arthritis Mother [place] Obrecht Hearing loss Mother [place] Obrecht Hypertension Mother [place] Obrecht Vision loss Mother [place] Obrecht Other (CARDIAC DISORDER) Father Pneumonia Father [...] Khoury MD at 05/14/2025 9:31 AM EDT * Abigail Richardson MD - 05/10/2025 10:07 PM EDTAssociated Order(s): IP CONSULT TO OPHTHALMOLOGY Reason For Consult Right orbital fracture History Of Present Illness Fawn Campos is a 89 y.o. 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 Patient says he is seeing normally, he does not have any vision changes, everything looks clear. Hedoes not have any new flashes or floaters, [...] the nervous system and sense organs, and Unsp ecified visual disturbance. Exam Base Eye Exam Visual [...] ophthalmology for dilated eye exam when cleared [phone] Recommend follow-up with [facility], within 1-2 weeks. Please call [phone] (EYES) to make appointment. Thank you for the consult. Please contact the Ophthalmology service with further questions or concerns. Abigail Richardson MD Ophthalmology, PGY-3 Ophthalmology Adult Pager - [phone] Ophthalmology Pediatrics Pager (8am- 5pm) - [phone] For adult follow-up appointments, call: [phone] For pediatric follow-up appointments, call: [phone] NOTE: This note is not finalized until [...] more detail as necessary. I agree with theresident/fellow's medical decision making as documented in the note. [facility] Work Phone: 1(693) 218-842607-25-2025 Plan of care note* Care Plan - Maliha Del Toro RN - 05/15/2025 6:37 PM EDT The patient's goals for the shift include safety The clinical goals for the shift include Pt will remian safe and HDS Over the shift, the patient did make progress toward the following goals. Pt sat in the chair for a couple hours today. Dobhoff inserted and awaiting to start feeds once pump available, city carrier assistant to see pt tomorrow morning and follow up. Still on 1L, desats to 88 on RA. Ptvoiding, had a BM, passing gas. Ongoing care, call light within reach, bed alarm in place T [facility]07-25-[facility] Procedure note* Sharon Silverio RDN, LD - 05/15/2025 4:23 PM EDT Images from the original note were not included. CLINICAL NUTRITION PROCEDURE NOTE Small Bore Feeding Tube Placement Patient with dysphagia requiring small bore feeding tube placement for medication and nutrition administration. All labs and images examined for appropriateness of tube placement. Procedure explainedto the patient and/or family. Feeding Tube Placement [...] have been placed to check tube placement. [facility]07-[facility] Procedure note* Sharon Silverio RDN, LD - 05/15/2025 4:23 PM EDT Images from the original note were not included. CLINICAL NUTRITION PROCEDURE NOTE Small Bore Feeding Tube Placement Patient with dysphagia requiring small bore feeding tube placement for medication and nutrition administration. All labs and images examined for appropriateness of tube placement. Procedure explainedto the patient and/or family. Feeding Tube Placement [...] have been placed to check tube placement. * FLAVIA Humphrey - 05/14/2025 2:10 PM EDTAssociated Order(s): WARD SERVICE SUPERVISOR MODIFIED BARIUM SWALLOW EVALUATION Speech-Language Pathology Inpatient [...] tsp/straw, purees, and regular solids were given. 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 He [...] risk of aspiration w/ continued PO intake WARD SERVICE SUPERVISOR PLAN: Skilled WARD SERVICE SUPERVISOR Services: Skilled WARD SERVICE SUPERVISOR intervention for dysphagia is warranted. WARD SERVICE SUPERVISOR Frequency: pending GOC decisions made Discussed POC: [...] given on all accounts. Treatment Provided Today: WARD SERVICE SUPERVISOR provided extensive education and training to pt/pt [...] to be utilized as a diagnostic assessment ofthe esophagus, rather a tool to observe the biomechanical aspects of the swallow continuum and to inform the need for further evaluation by medical specialists, as applicable. WARD SERVICE SUPERVISOR Impressions with Severity Rating: Pt awake/alert, consistently cooperative/able to follow commands, and responded appropriately to conversation/questions by WARD SERVICE SUPERVISOR. Missing dentition noted. Severe oropharyngeal dysphagia. Prolonged mastication of small bites regular solids 2/2 missing dentition. Lingual pumping and piecemeal swallow w/ all consistencies. 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 Impairments most impacting swallow function include delayed pharyngeal swallow initiation, incomplete epiglottic inversion/laryngeal vestibular closure (2/2 ? cervical lordosis), and reduced pharyngeal constriction/UES opening (2/2 ? cervical lordosis). Reduced phar yngeal squeeze/UES opening resulted in significant amount residue remaining in valleculae/pyriformsw/ all consistencies; pt independently swallowed >4x per bolus in effort to achieve oral clearance w/ inconsistent success. With subsequent swallows, incomplete epiglottic inversion/laryngeal vestibular closure resulted in SILENT aspiration of pharyngeal residue w/ ALL liquid consistencies afterthe swallow. Pt did not sense aspiration and made no independent effort to clear; cued coughs largely unsuccessful in clearing material from airway. Trialed chin tuck w/ mildly (nectar) thick liquidsw/ initial success in airway closure; however, eventual SILENT aspiration persisted given incomplete laryngeal vestibular closure. Initial success w/ moderately (honey) thick liquids via straw thougheventual aspiration 2/2 delayed pharyngeal swallow initiation. No further trials given 2/2 severityof swallow function. Pt not appropriate for PO diet given severity of swallow function. Recommend NPO w/ frequent aggressive oral care. 10 ice chips per hour allowed w/ nursing for pleasure, safe swallow stimulation, andafter oral care to prevent buildup of bacteria [...] residue, NO pt response] After the Swallow [place] Thick Liquids: 8. SILENT ASPIRATION - contrast [...] does not enter airway documented in this [facility] Work Phone: 1(532) 580-995607-24-2025 Plan of care note* Care Plan - Treva Womack RN - 05/14/2025 11:26 PM EDT Problem: Skin Goal: Decreased wound size/increased tissue [...] goals for the shift include 0900 T [facility]07-24-[facility] Plan of care note* Care Plan - Maliha Del Toro RN - 05/14/2025 4:52 PM EDT The patient's goals for the shift include safety The clinical goals for the shift include pain management Over the shift, the patient did not make progress toward the following goals. Problem: Nutrition Goal: Nutrient intake appropriate for maintaining nutritional needs Outcome: Not Progressing Pt failed MBS, having difficulty making decision on what to do. Spoke with pt on what having an NGTwould consist of. Pt also requested provider call and discuss options, RN message trauma provider. Q2 turns, having BM, primofit in place. On IVF. Pt tolerated therapy better today than yesterday per pt and PT. Bed alarm in place, call light within reach, ongoing care [facility] Work Phone: 1(663) 194-194607-24-2025 Procedure note* FLAVIA Humphrey - 05/14/2025 2:10 PM EDTAssociated Order(s): WARD SERVICE SUPERVISOR MODIFIED BARIUM SWALLOW EVALUATION Speech-Language Pathology Inpatient [...] tsp/straw, purees, and regular solids were given. 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 He [...] risk of aspiration w/ continued PO intake WARD SERVICE SUPERVISOR PLAN: Skilled WARD SERVICE SUPERVISOR Services: Skilled WARD SERVICE SUPERVISOR intervention for dysphagia is warranted. WARD SERVICE SUPERVISOR Frequency: pending GOC decisions made Discussed POC: [...] given on all accounts. Treatment Provided Today: WARD SERVICE SUPERVISOR provided extensive education and training to pt/pt family regarding anatomy/physiology of swallow function, risk factors of aspiration/aspiration pna & how to mitigate factors, diet modifications, and the use of compensatory swallow strategies to promote pt safety upon PO intake. Additional Medical Consults Suggested: [facility] Mechanics of the Swallow Summary: ORAL PHASE: [...] to be utilized as a diagnostic assessment ofthe esophagus, rather a tool to observe the biomechanical aspects of the swallow continuum and to inform the need for further evaluation by medical specialists, as applicable. WARD SERVICE SUPERVISOR Impressions with Severity Rating: Pt awake/alert, consistently cooperative/able to follow commands, and responded appropriately to conversation/questions by WARD SERVICE SUPERVISOR. Missing dentition noted. Severe oropharyngeal dysphagia. Prolonged mastication of small bites regular solids 2/2 missing dentition. Lingual pumping and piecemeal swallow w/ all consistencies. 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 Impairments most impacting swallow function include delayed pharyngeal swallow initiation, incomplete epiglottic inversion/laryngeal vestibular closure (2/2 ? cervical lordosis), and reduced pharyngeal constriction/UES opening (2/2 ? cervical lordosis). Reduced phar yngeal squeeze/UES opening resulted in significant amount residue remaining in valleculae/pyriformsw/ all consistencies; pt independently swallowed >4x per bolus in effort to achieve oral clearance w/ inconsistent success. With subsequent swallows, incomplete epiglottic inversion/laryngeal vestibular closure resulted in SILENT aspiration of pharyngeal residue w/ ALL liquid consistencies afterthe swallow. Pt did not sense aspiration and made no independent effort to clear; cued coughs largely unsuccessful in clearing material from airway. Trialed chin tuck w/ mildly (nectar) thick liquidsw/ initial success in airway closure; however, eventual SILENT aspiration persisted given incomplete laryngeal vestibular closure. Initial success w/ moderately (honey) thick liquids via straw thougheventual aspiration 2/2 delayed pharyngeal swallow initiation. No further trials given 2/2 severityof swallow function. Pt not appropriate for PO diet given severity of swallow function. Recommend NPO w/ frequent aggressive oral care. 10 ice chips per hour allowed w/ nursing for pleasure, safe swallow stimulation, andafter oral care to prevent buildup of bacteria [...] risk of aspiration with oral intake. aware. Rosenlancek's Penetration Aspiration Scale Thin Liquids: 8. SILENT ASPIRATION - contrast passes glottis, visible residue, NO pt response] After the Swallow [place] Thick Liquids: 8. SILENT ASPIRATION - contrast [...] no aspiration, contrast does not enter airway [facility] Work Phone: 1(128) 422-376407-24-2025 Plan of care note* Care Plan - Arlette Oakley RN - 05/14/2025 12:01 AM EDT The clinical goals for the shift include pts pain ivis remian controlled through shift Problem: Pain - Adult Goal: Verbalizes/displays adequate comfort level or baseline comfort level Outcome: Progressing Problem: Safety - Adult Goal: Free from fall injury Outcome: Progressing [facility]07-23-20[facility] Nurse Note* Greta Bai RN - 05/13/2025 6:51 PM EDT Pt was eating dinner and told RN he was having trouble swallowing certain foods and coughed and hadto spit them out. RN instructed pt and pts family to no longer eat or drink anything and food/drinkmoved away from patient. Primary team was notified. [facility]07-23-2025 Plan of care note* Care Plan - Greta Bai RN - 05/13/2025 4:58 PM EDT Problem: Skin Goal: Decreased wound size/increased tissue granulation at next dressing change Outcome: Progressing Goal: Participates in plan/prevention/treatment measures Outcome: Progressing Goal: Prevent/manage excess moisture Outcome: Progressing Flowsheets (Taken 05/13/2025 7570) Prevent/manage excess moisture: Moisturize dry skin Goal: [...] pts pain ivis remian controlled through shift [facility] Work Phone: 1(197) 380-892807-23-2025 Consult note* Hayley Chang RN - 05/13/2025 4:57 PM EDTAssociated Order(s): WOUND OSTOMY NURSING CONSULT Images from [...] 05/13/2025 11:24 AM Wound Image Site Assessment Red;Ambridge Griselda-Wound Assessment Dry Wound Length (cm) 2 [...] Due to linear presentation, likely IV or director of medical services line that caused skin changes. Area still [...] injury. Hayley Chang RN 05/13/2025 4:57 PM [facility]07-23-2025 Plan of care note* Care Plan - Arlette Oakley RN - 05/13/2025 12:45 AM EDT The clinical goals for the shift include Patient pain will be managed Problem: Pain - Adult Goal: Verbalizes/displays adequate comfort level or baseline comfort level Outcome: Progressing Problem: Safety - Adult Goal: Free from fall injury Outcome: Progressing [facility] Work Phone: 1(316) 736-285507-22-2025 Consult note* Robb Rossi DO - 05/12/2025 8:48 AM EDTAssociated Order(s): Inpatient consult to Geriatric Medicine Inpatient consult to Geriatric Medicine Consult performed by: Robb Rossi DO Consult ordered by: Kristy Giraldo DO Primary Team: Trauma Admit Date: 05/10/2025 Emergency Contact: Extended Emergency Contact Information Primary Emergency Contact: Diya Cameron [address]: [address] [place] [address] Mobile Relation: Power of Customer Service Teller Certified Fraud Examiner needed? No Reason For Consult: advanced age, frequent falls History Of Present Illness: Andres Cameron is a 89 y.o. male with h/o AAA, infrarenal aneurysm, HTN, HLD, CAD (on ASA) who presents after an unwitnessed fall on Sunday05/09/25. 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 Workup revealed injuries to the R orbital floor, Mild buckled fracture of the RT anterior cranial floor/orbital roof, Small RT (2 mm) subdural hematoma, Trace right frontal subarachnoid hematoma, Bilateral pubic rami fractures with extension into the acetabular wall, Nondisplaced sacral ala fracture on right. Cardiac workup in the ED was negative for OK or arhythmia. Pt has been evaluated by trauma surgery, orthopedic surgery, ENT and ophthalmology and no surgical intervention has been recommended. PT/OT is recommending high- intensity acute rehab on discharge. 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 [place] Cognitive Assessment (MoCA) Not on file. Geriatric [...] 14 16 13 16 16 18 Vitals: 05/10/252156 Weight: 66.2 kg (146 lb) Confusion Assessment [...] due to pain, muscle strength 5/5 bilateral upperand lower extremities Skin: General: Skin is warm. Capillary Refill: Capillary refill takes less than 2 seconds. Comments: Skin tears present on the dorsal right hand/knuckles and forearm without any active bleeding, wrapped with gauze; bilateral forearm ecchymoses Relevant Results Lab Results Component Value Date TSH 2.99 09/01/2024 [id number] 314 11/20/2024 Results from last 7 days [...] C4-C5 as well as moderate facet disease Increasedlordosis of the cervical spine. MACRO: None Signed by: Clement Estevez 05/09/2025 8:28 AM Dictation workstation: [id number] ECG 12 lead Normal sinus rhythm Normal ECG When compared with ECG of 07-DEC-2023 09:54, Premature atrial complexes are no longer Present See ED provider note for full interpretation and clinical correlation Confirmed by Brandee Hawkins ([id number]) on 05/11/2025 1:16:43 PM XR pelvis With Inlet Outlet Judet views Narrative: Interpreted By: Wanda Montalvo and Omar Mahmoud STUDY: XR PELVIS WITH INLET OUTLET JUDET VIEWS; ; 05/11/2025 4:18 am INDICATION: Signs/Symptoms:eval. COMPARISON: CT chest abdomen pelvis 05/10/2025. ACCESSION NUMBER(S): [id number] ORDERING CLINICIAN: LEONARDO BERGER FINDINGS: Five view [...] MD (PGY-3). This study was interpreted at [place], [place]. MACRO: None Signed by: Wanda Montalvo 05/11/2025 5:01 AM Dictation workstation: [id number] XR chest 1 view Narrative: STUDY: Chest Radiograph; 05/11/2025 1:13AM INDICATION: Evaluation for surgery trauma. COMPARISON: 09/23/2022 XR chest ACCESSION NUMBER(S): [id number] ORDERING CLINICIAN: SANTIAGO MENENDEZ TECHNIQUE: Frontal chest [...] and clinical correlation Confirmed by Yolanda Garcia ([id number]) on 05/11/2025 3:47:[address] head wo IV contrast Narrative: Interpreted By: Wanda Montalvo, Jake Jenkins STUDY: CT HEAD WO IV CONTRAST; 05/10/2025 11:27 pm INDICATION: Signs/Symptoms:Trauma, intracranial bleeding. Stability scan. COMPARISON: CT head without IV contrast 05/10/2025 3:03 p.m.. ACCESSION NUMBER(S): [id number] ORDERING CLINICIAN: CARRI GREER TECHNIQUE: Noncontrast axial [...] MD (PGY-3). This study was interpreted at [facility], [place], [place]. MACRO: None Signed by: Wanda Montalvo 05/11/2025 12:03 AM Dictation workstation: [id number] Head/Brain Imaging === Results for orders placed during the hospital encounter of 05/10/25 === CT head wo IV contrast [[id number]] 05/10/2025 Status: Normal Redemonstration of minimally displaced [...] MD (PGY-3). This study was interpreted at [place], [place]. MACRO: None Signed by: Wanda Montalvo 05/11/2025 12:03 AM Dictation workstation: [id number] No results found for this or any previous visit. DATA: EKG: QTC Encounter Date: 05/10/25 ECG 12 lead Result Value Ventricular Rate 72 Atrial Rate 72 MO Interval 190 QRS Duration 104 QT Interval 394 QTC Calculation(Bazett) 431 P [place] 31 R [place] -15 T [place] 44 QRS Count 12 Q Onset 210 P Onset 115 P Offset 178 T Offset 407 QTC Fredericia 418 Narrative Normal sinus rhythm Normal ECG When compared with ECG of 10-MAY-2025 13:54, No significant change was found See ED provider note for full interpretation and clinical correlation Confirmed by Yolanda Garcia ([id number]) on 05/11/2025 3:47:31 AM Anti-psychotics in 48 [...] Goals of Care: -Health care power of contracts attorney: Diya () -Living will: present Code status: FULL CODE Geriatric medicine will continue to follow the patient. Thank you for allowing geriatric medicine to be involved in the care of your patient. Geriatric medicine consultation team is available during work hours Sunday through Sunday. For any emergency issues requiring immediate assistance over the weekend, please page Geriatrics pager [phone] Consult Billing Time Prep time on date of patient encounter(minutes): Time directly with patient/family/caregiver(minutes): Documentation time(minutes): TOTAL TIME(minutes): Robb Rossi DO PGY3 Family Medicine [1] Current Facility-Administered Medications Medication Dose Route Frequency Provider Last Rate Last Admin acetaminophen (Tylenol) tablet 650 mg 650 mg oral q6h SILVANO Dickson 650 mg at 05/12/25 0616 levETIRAcetam (Keppra) tablet 500 mg 500 mg oral BID February Evelyn Granda MD 500 mg at 05/11/25 2140 metoprolol tartrate (Lopressor) tablet 12.5 mg 12.5 mg oral BID February Evelyn Granda MD 12.5 mg at 05/11/250 ondansetron (Zofran) tablet 4 mg 4 mg oral q8h PRN [facility] Or ondansetron (Zofran) injection 4 mg 4 mg intravenous q8h PRN [facility] oxyCODONE (Roxicodone) immediate release tablet 2.5 mg 2.5 mg oral q6h PRN [facility] 2.5 mg at 05/11/25 1849 oxyCODONE (Roxicodone) immediate release tablet 5 mg 5 mg oral q4h PRN [facility] 5 mg at 615 oxygen (O2) therapy inhalation Continuous PRN - O2/gases [facility] oxymetazoline (Afrin) 0.05 % nasal spray 2 spray 2 spray Each Nostril q12h PRN [facility] pantoprazole (ProtoNix) EC tablet 40 mg 40 mg oral Daily before breakfast [facility] 40 mg at 05/12/25 0616 polyethylene glycol (Glycolax, Miralax) packet 17 g 17 g oral Daily [facility] pravastatin (Pravachol) tablet 40 mg 40 mg oral Nightly February Evelyn Granda MD 40 mg at 05/11/252139 Current Outpatient Medications Medication Sig Dispense Refill alfuzosin (Uroxatral) 10 mg 24 hr tablet TAKE 1 TABLET BY MOUTH ONCE DAILY DO NOT CRUSH, CHEW, OR SPLIT 90 tablet 3 amitriptyline (Elavil) 10 mg tablet Take 1 tablet (10 mg) by mouth once daily at bedtime. 90 tablet3 amLODIPine (Norvasc) 5 mg tablet Take 1 [...] de jesus and critical portions of the historyand physical exam or was physically present for [...] in this hospital; stay. 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 Patient was found to have right orbital floor and roof fracture, small right subdural hematomaand trace frontal/parietal subarachnoid hematoma, bilateral pubic rami [...] PT/OT and has been recommended SNF placement. 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 Kristy Ramos in 2 weeks. Call [phone] to schedule appointment. - Please don't hesitate to page with questions DISPOSITION: Per primary, pending trial of ambulation This patient was staffed with the attending physician, Dr. Kristy Resendiz MD Orthopedic Surgery PGY-2 [facility] While admitted, this patient will be followed by the Orthopedic Trauma Team. Please contact the residents listed below with any questions. For urgent matters at any time, or for any needs between 6 PM and 6 AM Sunday through Sunday, on weekends, or on holidays, please page [place] [phone]. Trauma: First Call: Antonio Guzman, PGY-1/Heike Arzate PGY-1 Second Call: Sally Cutler, PGY-2 Third Call: Chente Ricci, PGY-3 Cosigned by Kristy Ramos MD at 05/11/2025 1:07 PM EDT [facility] Work Phone: 1([phone]) 621-918807-20-2025 Consult note* Riaz Carrillo MD - 05/10/2025 11:49 PM EDTAssociated Order(s): IP CONSULT TO ENT ENT DEPARTMENT CONSULTATION NOTE Name: Fawn Cameron : 1935 Consulting Attending: Carri Greer MD;Leonardo* Reason for Consult: Orbital roof fracture Patient History of Present Illness 89 y.o. male presented to [facility] on 05/10 after sustaining injuries from a ground level fall which took place while walking into the hospital. On secondary survey significant head and neck injuries included R orbital roof fracture (non- displaced) and possible R orbital floor fracture (non-displaced [...] data in the 24 hours ending 05/10/25 0289 @INR@ Imaging: I have personally reviewed the [...] smoke. You may use saline nasal spray ([place]) and Afrin as needed for congestion and bleeding. If using Afrin please take as permitted on the bottle (for every 3 days of use you must take a 1 day holiday before using it again). Note not final until signed by an attending. Riaz Carrillo MD - PGY2 Otolaryngology - Head and Neck Surgery Head & Neck team phone: [phone] ENT consult pager: [phone] Pediatric ENT pager: [phone] ENT Outpatient scheduling number: [phone] [1] Past Medical History: Diagnosis Date Arthritis [...] Name Age of Onset Heart murmur Mother [place] Obrecht Hyperlipidemia Mother [place] Obrecht Arthritis Mother [place] Obrecht Hearing loss Mother [place] Obrecht Hypertension Mother [place] Obrecht Vision loss Mother [place] Obrecht Other (CARDIAC DISORDER) Father Pneumonia Father [...] Khoury MD at 05/14/2025 9:31 AM EDT [facility] Work Phone: 1(208) 448-314307-20-2025 History and physical note* Daryl Dickson - 05/10/2025 11:22 PM EDT [facility] TRAUMA SERVICE - HISTORY AND PHYSICAL / CONSULT Patient Name: Fawn Cameron Admit Date: [id number] : 1935 AGE: 89 y.o. 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 LOC (yes/no?): Yes Anticoagulant / Anti-platelet Rx? (for what dx?): ASA 81 Referring Facility Name (N/A for scene EMR run): [facility] INJURIES: Right orbital floor Mild buckled fracture [...] mg) by mouth 2 times a day. 09/01/2411/11/25 Don Barrera MD omeprazole (PriLOSEC) [address] capsule Take 1 capsule (40 mg) by mouth once daily in the morning. Take before meals. 09/01/24 09/01/25 Don Barrera MD pravastatin (Pravachol) 40 mg tablet Take 1 tablet (40 mg) by mouth once daily at bedtime. 09/01/2411/11/25 Don Barrera MD predniSONE (Deltasone) 10 mg [...] drop into affected eye four timesa day Patient not taking: Reported on 05/07/2025 [...] the right; 1+ on the left. Disability [place] Coma Score Eye:4 Verbal:5 Motor:6 15 Pupils Right Pupil: round and reactive 3 mm Left Pupil: round and reactive 3 mm Motor Strength Acid Washer Operator strength: 5/5 on the right 5/5 on [...] due to pain, muscle strength 5/5 bilateral upperand lower extremities Skin: General: Skin is warm [...] Name Age of Onset Heart murmur Mother [place] Obrecht Hyperlipidemia Mother [place] Obrecht Arthritis Mother [place] Obrecht Hearing loss Mother [place] Obrecht Hypertension Mother [place] Obrecht Vision loss Mother [place] Obrecht Other (CARDIAC DISORDER) Father Pneumonia Father [...] de jesus and critical portions of the historyand physical exam or was physically present for de jesus and critical portions performed by the resident/fellow. I reviewed the resident/fellow's documentation and discussed the patient with the resident/vikki gray. I agree with the resident/fellow's medical decision making as documented in the note. Kristy Giraldo DO [facility] Work Phone: 1([phone]) 548-831907-20-2025 History and physical note* Daryl Dickson - 05/10/2025 11:22 PM EDT [facility] TRAUMA SERVICE - HISTORY AND PHYSICAL / CONSULT Patient Name: Fawn Cameron Admit Date: [id number] : 1935 AGE: 89 y.o. 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 LOC (yes/no?): Yes Anticoagulant / Anti-platelet Rx? (for what dx?): ASA 82 Referring Facility Name (N/A for scene EMR run): [facility] INJURIES: Right orbital floor Mild buckled fracture [...] mg) by mouth 2 times a day. 09/01/2411/11/25 Don Barrera MD omeprazole (PriLOSEC) [address] capsule Take 1 capsule (40 mg) by mouth once daily in the morning. Take before meals. 09/01/24 09/01/25 Don Barrera MD pravastatin (Pravachol) 40 mg tablet Take 1 tablet (40 mg) by mouth once daily at bedtime. 09/01/2411/11/25 Don Barrera MD predniSONE (Deltasone) 10 mg [...] drop into affected eye four timesa day Patient not taking: Reported on 05/07/2025 [...] the right; 1+ on the left. Disability [place] Coma Score Eye:4 Verbal:5 Motor:6 15 Pupils Right Pupil: round and reactive 3 mm Left Pupil: round and reactive 3 mm Motor Strength Acid Washer Operator strength: 5/5 on the right 5/5 on [...] due to pain, muscle strength 5/5 bilateral upperand lower extremities Skin: General: Skin is warm [...] Name Age of Onset Heart murmur Mother [place] Obrecht Hyperlipidemia Mother [place] Obrecht Arthritis Mother [place] Obrecht Hearing loss Mother [place] Obrecht Hypertension Mother [place] Obrecht Vision loss Mother [place] Obrecht Other (CARDIAC DISORDER) Father Pneumonia Father [...] de jesus and critical portions of the historyand physical exam or was physically present for de jesus and critical portions performed by the resident/fellow. I reviewed the resident/fellow's documentation and discussed the patient with the resident/f isaac. I agree with the resident/fellow's medical decision making as documented in the note. Kristy Giraldo DO documented in this [facility] Work Phone: 1(483) 295-227907-20-2025 Consult note* Abigail Richardson MD - 05/10/2025 10:07 PM EDTAssociated Order(s): IP CONSULT TO OPHTHALMOLOGY Reason For Consult Right orbital fracture History Of Present Illness Fawn Campos is a 89 y.o. male [facility] now with right orbital fractures in addition to SDH vs SAH, pelvic fractures, ophthalmology consulted to rule out (r/o) entrapment, not cleared for dilation. Patient says he is seeing normally, he does not have any vision changes, everything looks clear. Hedoes not have any new flashes or floaters, [...] the nervous system and sense organs, and Unsp ecified visual disturbance. Exam Base Eye Exam Visual [...] ophthalmology for dilated eye exam when cleared [phone] Recommend follow-up with [facility], within 1-2 weeks. Please call [phone] (EYES) to make appointment. Thank you for the consult. Please contact the Ophthalmology service with further questions or concerns. Abigail Richardson MD Ophthalmology, PGY-3 Ophthalmology Adult Pager - [phone] Ophthalmology Pediatrics Pager (8am- 5pm) - [phone] For adult follow-up appointments, call: [phone] For pediatric follow-up appointments, call: [phone] NOTE: This note is not finalized until [...] more detail as necessary. I agree with theresident/fellow's medical decision making as documented in the note. [facility] Work Phone: 1(756) 565-463907-20-2025 Physician Emergency department Note* Brendan Dougherty DO - 05/10/2025 9:56 PM EDT CC: Fall History provided by: Patient Limitations to History: None HPI: Patient is a 89-year-old male with a PMH of GERD, hypertension, osteoarthritis, CAD, remote TIA, and infrarenal AAA who presents to the hospital via EMS from [facility] for a chief complaint of fall. [...] Speech is clear. Face is symmetric without facialdroop and facial sensation to light touch equal [...] Course: ED Course as of 05/15/25 1250 [place] May 10, [id number] Discussed with ophthalmology. They [...] signs are within normal limits, he is nontoxic- appearing, and appears in no acute distress. Upon [...] Brendan Dougherty DO Resident 05/12/25 1836 Carri Grere MD 05/15/25 1250 Cosigned by Carri Greer MD at 05/15/2025 12:50 PM EDT Associated attestation - Carri Greer MD - 05/15/2025 12:50 PM EDT The patient was seen by the resident/fellow/advanced practice provider. I have personally performeda substantive portion of the encounter. I have seen and examined the patient; agree with the workup, evaluation, MDM, management and diagnosis. The care plan has been discussed. I personally saw the patient and made/approved the management plan and take responsibility for the patient management. I have reviewed the note and agree with the documented findings. Carri Greer MD [facility] Work Phone: 1([phone]) 846-787807-20-2025 Emergency department Note* Brendan Dougherty DO - 05/10/2025 9:56 PM EDT CC: Fall History provided by: Patient Limitations to History: None HPI: Patient is a 89-year-old male with a PMH of GERD, hypertension, osteoarthritis, CAD, remote TIA, and infrarenal AAA who presents to the hospital via EMS from [facility] for a chief complaint of fall. [...] Speech is clear. Face is symmetric without facialdroop and facial sensation to light touch equal [...] Course: ED Course as of 05/15/25 1250 [place] May 10, [id number] Discussed with ophthalmology. They [...] signs are within normal limits, he is nontoxic- appearing, and appears in no acute distress. Upon [...] the resident/fellow/advanced practice provider. I have personally performeda substantive portion of the encounter. I have seen and examined the patient; agree with the workup, evaluation, MDM, management and diagnosis. The care plan has been discussed. I personally saw the patient and made/approved the management plan and take responsibility for the patient management. I have reviewed the note and agree with the documented findings. Carri Greer MD * Virginia Cavazos RN - 05/10/2025 9:53 PM EDT Patient transferred to [facility] from [facility] for trauma consult after a fall. 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 Per the hospital footage, fall looks to be mechanical, patient was only down for a few minutes. +LOC with memory loss. Pa kellee was found to have a closed right orbital fx, multiple pelvic fractures and a subdural vs subarachnoid hemorrhage. Patient A&O x4 upon arrival. [facility] Work Phone: 1(571) 129-244807-20-2025 Emergency department Triage note* Virginia Cavazos RN - 05/10/2025 9:53 PM EDT Patient transferred to [facility] from [facility] for trauma consult after a fall. 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 Per the hospital footage, fall looks to be mechanical, patient was only down for a few minutes. +LOC with memory loss. Pa kellee was found to have a closed right orbital fx, multiple pelvic fractures and a subdural vs subarachnoid hemorrhage. Patient A&O x4 upon arrival. [facility] Work Phone: 1([phone]) 114-497607-20-2025 Physician Emergency department Note* Brandee Hawkins PA-C - 05/10/2025 7:04 PM EDTAssociated Order(s): Laceration Repair HPI Chief Complaint Patient presents with Fall Pt found laying outside ambulance doors laying on cement. Pt does not recall what happened. Ccollarapplied and pt placed on stretcher This is [...] No treatment, delayed treatment, observation and referral [place] protocol: Procedure explained and questions answered to [...] well, no immediate complications Brandee Hawkins PA-C 05/10/251906 [facility] Work Phone: 1([phone]) 803-986607-20-2025 Emergency department Note* Brandee Hawkins PA-C - 05/10/2025 7:04 PM EDTAssociated Order(s): Laceration Repair HPI Chief Complaint Patient presents with Fall Pt found laying outside ambulance doors laying on cement. Pt does not recall what happened. Ccollarapplied and pt placed on stretcher This is [...] No treatment, delayed treatment, observation and referral [place] protocol: Procedure explained and questions answered to [...] immediate complications Brandee Hawkins PA-C 05/10/25 190 * Santiago Menendez, - 05/10/2025 2:42 PM EDT HPI Chief Complaint Patient presents with Fall Pt found laying outside ambulance doors laying on cement. Pt does not recall what happened. Ccollarapplied and pt placed on stretcher Patient was found on the ground outside of her ambulance bay. 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 He was on the ground for less than 1 minute before juaquin noted him on the ground. The patient is amnestic to the event. He denies pain. History provided by: Patient History limited by: Mental status change key holder used: No Patient History Medical History[1] Surgical [...] is able to answer simple questions. He isnot aware that he fell. HENT: Head: Normocephalic. [...] right forehead as described above. Additionally, the patienthas several small skin avulsions over the dorsum [...] care and wishes to stay within the system.Patient case was discussed with Dr. Giraldo from [facility] who accepted the patient as a ER to ER transfer. Patient will be transferred by squad in stable condition Critical care time this patient excluding billable procedures is 47-minute secondary to multiple repeat physical examinations, chart review, and interpretation of radiographic studies. Family is at bedside. I disclosed to the traumatic findings including the facial fracture, multiplepelvic fractures, and intracranial hemorrhage. Patient is requesting [...] Name Age of Onset Heart murmur Mother Tununak Obrecht Hyperlipidemia Mother Tununak Obrecht Arthritis Mother Tununak Obrecht Hearing loss Mother Tununak Obrecht Hypertension Mother Tununak Obrecht Vision loss Mother Tununak Obrecht Other (CARDIAC DISORDER) Father Pneumonia Father [...] use: Never Santiago Menendez DO 05/10/25 1727 documented in this [facility] Work Phone: 1(739) 570-679107-20-2025 Physician Emergency department Note* Santiago Menendez DO - 05/10/2025 2:42 PM EDT HPI Chief Complaint Patient presents with Fall Pt found laying outside ambulance doors laying on cement. Pt does not recall what happened. Ccollarapplied and pt placed on stretcher Patient was found on the ground outside of her ambulance bay. 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 He was on the ground for less than 1 minute before juaquin noted him on the ground. The patient is amnestic to the event. He denies pain. History provided by: Patient History limited by: Mental status change key holder used: No Patient History Medical History[1] Surgical [...] is able to answer simple questions. He isnot aware that he fell. HENT: Head: Normocephalic. [...] right forehead as described above. Additionally, the patienthas several small skin avulsions over the dorsum [...] ring, initial encounter (Multi) No data recorded [place] Coma Scale Score: 14 (05/10/25 1402 : aFusto Bradley RN) Medical Decision Making Twelve-lead EKG [...] care and wishes to stay within the system.Patient case was discussed with Dr. Giraldo from [facility] who accepted the patient as a ER to ER transfer. Patient will be transferred by squad in stable condition Critical care time this patient excluding billable procedures is 47-minute secondary to multiple repeat physical examinations, chart review, and interpretation of radiographic studies. Family is at bedside. I disclosed to the traumatic findings including the facial fracture, multiplepelvic fractures, and intracranial hemorrhage. Patient is requesting [...] Name Age of Onset Heart murmur Mother Tununak Obrecht Hyperlipidemia Mother Tununak Obrecht Arthritis Mother Tununak Obrecht Hearing loss Mother Tununak Obrecht Hypertension Mother Tununak Obrecht Vision loss Mother Tununak Obrecht Other (CARDIAC DISORDER) Father Pneumonia Father [...] use: Never Santiago Menendez DO 05/10/25 1727 [facility] Work Phone: 1(950) 993-977707-18-2025 Reason for visit Narrative* Imaging (Routine) - Authorized Specialty Diagnoses / Procedures Referred By Contac t Referred To Contact Radiology Diagnoses Neck pain Procedures XR cervical spine 2-3 views Don Barrera MD [facility] [place] [address] Phone: tel: fax: Referral ID Status Reason Start Date Expiration Date Visits Requested Visits Authorized [id number] Authorized Perform Procedure 05/07/2025 05/07/2026 1 1 [facility] Work Phone: 1([phone]) 286-915007-17-2025 History of Present illness Narrative* Don Barrera [...] Referral to Physical Therapy documented [facility] Work Phone: 1(414) 299-611906-20-2025 History of Present illness Narrative* GINA Dickerson - 04/10/2025 10:55 AM EDT [facility] GINA Dickerson Visit Note - [...] has never used smokeless tobacco. 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 CHIEF COMPLAINT: Chief Complaint Patient presents with Chest Pain Left rib pain X 3 days after chiropractic visit HISTORY OF PRESENT ILLNESS: The history was obtained from patient. Fawn is a 89 y.o. male, who presents [...] Sunday.. ,R07.81 Pleurodynia COMPARISON: None. ACCESSION NUMBER(S): [id number] ORDERING CLINICIAN: LINCOLN KING FINDINGS: Cardiac silhouette within normal limits. Mild bibasilar fibrotic stranding. No focal infiltrate, pleural effusion or pneumothorax. Nondisplaced fracture of the anterior left 6th rib. IMPRESSION: Nondisplaced fracture anterior left 6th rib. No pneumothorax. MACRO: None Signed by: Howard Elias 04/10/2025 1:50 PM Dictation workstation: [id number] IMPRESSION/PLAN: Course: Worsening; stable 1. Rib pain [...] agreed with plan of care. 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 Nails 60648 left foot nails 55392 right foot are elongated thickened mycotic crumbling [...] AUTHENTICATED BY ELADIO KINGSLEY JR., ON 04/10/2025 08:19:02[facility]06-20-2025 History of Present illness Narrative* Eladio Kingsley [...] than 5 seconds to distal digits. Nails 25100 left foot nails 63663 right foot are elongated thickened mycotic crumbling [...] for foot nail care documented in this [id number] NoteHNO ID: [id number] Author: DELTA BANGURA MD Service: ? Author [...] Patient was instructed to call the office ([phone]) immediately upon noticing flashes of light, increase [...] and agree with all of its relevant components.[facility]03-21-2025 NotePatient is a pleasant 89-year-old male who [...] than 5 seconds to distal digits. Nails 85586 left foot nails 37424 right foot are elongated thickened mycotic crumbling [...] AUTHENTICATED BY ELADIO KINGSLEY JR., ON 01/09/2025 08:22:08[facility]03-21-2025 History of Present illness Narrative* Eladio Kingsley [...] than 5 seconds to distal digits. Nails 65345 left foot nails 16802 right foot are elongated thickened mycotic crumbling [...] for foot nail care documented in this [id number] Evaluation + Plan note* Assessment & Plan Note - Don Barrera MD - 11/20/2024 8:25 AM EST Associated Problem(s): Osteoarthritis Seeing pain medicine physician, epidural steroid injection somewhat helpful with hip pain but not really helpful with low back pain. 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 [facility] Work Phone: [phone] Evaluation + Plan note* Assessment & Plan Note - Don Barrera MD - 11/20/2024 8:25 AM ESTAssociated Problem(s): MARIANGEL (generalized anxiety disorder) Stable with medication, interrupting day-to-day life, satisfied with current level of anxiety. 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 * Assessment & Plan Note - Don Barrera MD - 11/20/2024 8:24 AM EST Associated Problem(s): Hypertension Blood pressure under good control, electrolyte and renal functions recently were normal. * Assessment & Plan Note - Don Barrera MD - 11/20/2024 8:24 AM EST Associated Problem(s): Abdominal aneurysm ([facility]) Ultrasound last May was stable. * Assessment & Plan Note - Don Barrera MD - 11/20/2024 8:24 AM EST Associated Problem(s): Hyperlipidemia Thick LDL cholesterol today, continue with current medication. [facility] Work Phone: [phone] Evaluation + Plan note* Assessment & Plan Note - Don Barrera MD - 11/20/2024 8:24 AM ESTAssociated Problem(s): BPH (benign prostatic hyperplasia) Currently he is stable, does have some nocturia, check PSA at follow-up appointment, could consideradding tamsulosin but concerned about possible dizziness side effect [facility] Work Phone: [phone] 786-181301-30-2025 Evaluation + Plan note* Assessment & Plan Note - Don Barrera MD - 11/20/2024 8:24 AM ESTAssociated Problem(s): 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 Asymptomatic with medication. 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 [employer] [facility] Work Phone: 1([phone]) 730-456501-30-2025 Evaluation + Plan note* Assessment & Plan Note - Don Barrera MD - 11/20/2024 8:24 AM ESTAssociated Problem(s): Hypertension Blood pressure under good control, electrolyte and renal functions recently were normal. [facility] Work Phone: [phone]) [phone] Evaluation + Plan note* Assessment & Plan Note - Don Barrera MD - 11/20/2024 8:24 AM ESTAssociated Problem(s): Abdominal aneurysm ([facility]) Ultrasound last May was stable. [facility] Work Phone: [phone] Evaluation + Plan note* Assessment & Plan Note - Don Barrera MD - 11/20/2024 8:24 AM ESTAssociated Problem(s): Hyperlipidemia Thick LDL cholesterol today, continue with current medication. [facility] Work Phone: [phone] 624-893001-30-2025 History of Present illness Narrative* Don Barrera [...] Comprehensive Metabolic Panel Lipid Panel Abdominal aneurysm ([facility]) I71.40 Ultrasound last May was stable. 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 Relevant Orders Follow [...] Prostate Specific Antigen, Screen documented in this [facility] Work Phone: [phone]) 577-894712-11-2024 NotePatient is a pleasant 89-year-old male who [...] than 5 seconds to distal digits. Nails 87612 left foot nails 82071 right foot are elongated thickened mycotic crumbling [...] AUTHENTICATED BY ELADIO KINGSLEY JR., ON 10/01/2024 08:32:38[facility] [id number] History of Present illness Narrative* Eladio Kingsley [...] than 5 seconds to distal digits. Nails 18824 left foot nails 04309 right foot are elongated thickened mycotic crumbling [...] for foot nail care documented in this [id number] History of Present illness Narrative* Don Barrera [...] Mental status is at baseline. Comments: Positive Neda-Hallpike maneuver to the right. Psychiatric: Mood and [...] tablet Other Relevant Orders Holter Or Event Director Of Sports Performance CBC and Auto Differential Comprehensive Metabolic Panel TSH with reflex to Free T4 if abnormal ECG 12 Lead (Completed) Palpitations R00.2 Concern today when nurse taking vital signs elevated heart rate, EKG stable, normal exam today, check labs and Holter to rule out A-fib Relevant Medications folic acid (Folvite) 1 mg tablet Other Relevant Orders Holter Or Event Director Of Sports Performance CBC and Auto Differential Comprehensive Metabolic Panel TSH with reflex to Free T4 if abnormal ECG 12 Lead (Completed) [facility] Work Phone: 1(292) 484-912509-12-2024 History of Present illness Narrative* Otoniel Salcedo [...] Name Age of Onset Heart murmur Mother Tununak Obrecht Hyperlipidemia Mother Tununak Obrecht Arthritis Mother Tununak Obrecht Hearing loss Mother Tununak Obrecht Hypertension Mother Tununak Obrecht Vision loss Mother Tununak Obrecht Other (CARDIAC DISORDER) Father Pneumonia Father [...] months Vascular [place] [address] ext-2528, Vascular Lab Report [facility] US AORTA ILIAC DUPLEX COMPLETE Patient Name: FAWN Lu CAMERON Reading Physician: [id number] SILVANA Hudson MD Study Date: 06/17/2024 Ordering Provider: [id number] DON BARRERA MRN/PID: [id number] Fellow: Technologist: Annamaria Cornejo RVT/ Date of /Age: 5 1935 / 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: Gender: M Admission Status: Outpatient Location Performed: [facility] Diagnosis/ICD: Abdominal aortic aneurysm, without rupture, unspecified-I71.40 CPT Codes: 33374 Duplex Aorta/IVC/Iliac/Bypass Graft CONCLUSIONS: Aorta/Common Iliac Arteries/IVC: [...] Proximal 1.40 cm 1.30 cm 142.00 cm/s SILVANA Barboza MD Final Impression Fawn Leigh Nisha is a 89 y.o. male with a [...] Salcedo MD Advanced Heart Failure/Transplant Cardiology Cardio-Oncology [facility] [place] documented in this [facility] Work Phone: 1([phone]) 471-513208-16-2024 NotePatient is a pleasant 89-year-old male who [...] than 5 seconds to distal digits. Nails 17968 left foot nails 31794 right foot are elongated thickened mycotic crumbling [...] AUTHENTICATED BY ELADIO KINGSLEY JR., ON 06/06/2024 08:21:01[facility]-16-2024 History of Present illness Narrative* Eladio Kingsley Jr., DPM - 06/06/2024 8:10 AM EDT Patient is a pleasant 89-year-old male who comes in today for introduced arterial disease with nailcare. His geriatric care and primary care is managed by Dr. oDn Barrera. Physical Vascular: DP pulses are palpable 2 out of 4 bilaterally. PT pulses are nonpalpable bilaterally with+1 edema to the ankle and foot. Derm: Skin is shiny atrophic dysvascular with absence of hair growth. Capillary refill time is greater than 5 seconds to distal digits. Nails 33417 left foot nails 94728 right foot are elongated thickened mycotic crumbling [...] for foot nail care documented in this [id number] Instructions* Patient Instructions* Delta Bangura MD - 03/05/2024 10:03 AM EDT Please monitor each eye daily with Amsler Grid. AREDS 2 Vitamins are available over the counter at any drug store. Follow up with Dr. Soria for updated refraction and glasses. Return here in 1 year Patient was instructed to call the office ([phone]) immediately upon noticing flashes of light, increase in floaters, or changes in vision. If you have any questions please contact our office at [phone]. After office hours or on the weekend, please call Dr. Bangura on his cell phone at [phone]. documented in this [facility]Hol[facility] NoteDate of Procedure 03/05/2024. Protective Officer Information Doctor Of Nurse Anesthesia: TK. Interpretation Right Eye Normal without fluid. Findings include Drusen, RPE Irregularity. Left Eye Abnormal foveal contour. Findings include Drusen, Epiretinal membrane, RPE Irregularity. Interval Change Right Eye Stable. Left Eye Stable.[id number] History of Present illness Narrative* Delta Bangura [...] Patient was instructed to call the office ([phone]) immediately upon noticing flashes of light, increase [...] of its relevant components. documented in this encounterHol[facility]05-[facility] History of Present illness Narrative* [...] than 5 seconds to distal digits. Nails 36724 left foot nails 72620 right foot are elongated thickened mycotic crumbling [...] for foot nail care documented in this [id number] History of Present illness Narrative* Sage Kwon MD - 02/12/2024 9:56 AM EDT New Patient Visit [facility] [address], [place] [facility], [place], [place] [id number] (office) Date of service: 02/12/2024 ID: Fawn [...] of abdominal wall, History of cardiac cath, CIRCLE (hard of hearing), Hyperlipidemia, Hypertension, HANNAH (juvenile idiopathic arthritis), polyarthritis, rheumat factor neg ([facility]), Nail disorder, OM (onychomycosis), JOSEFA (obstructive sleep apnea), Osteoarthritis, PAD (peripheral artery disease) ([facility]), and TIA (transient ischemic attack) [...] to confrontation. PERRL. Normal conjunctivae and lids. 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 [...] Achilles 0 0 Babinski Down Down Coordination: Figrtt-aj-kyhg intact bilaterally. Mild in hands physiologic tremors [...] 6 months (around 08/13/2024). Sage Kwon MD Abstract Writer Neurologist [facility]. Timed code: 68 minutes Includes [...] and other health records. documented in this [id number] Emergency department Note* Celso Cabezas, - 12/07/2023 [...] Name Age of Onset Heart murmur Mother Tununak Obrecht Hyperlipidemia Mother Tununak Obrecht Arthritis Mother Tununak Obrecht Hearing loss Mother Tununak Obrecht Hypertension Mother Tununak Obrecht Vision loss Mother Tununak Obrecht Other (CARDIAC DISORDER) Father Pneumonia Father [...] using a different testing methodology at [facility] than at other [facility]. Direct result comparisons should only be made within the same method. URINALYSIS WITH REFLEX CULTURE AND MICROSCOPIC - Normal Color, Urine Straw Appearance, Urine Clear Specific Madison, Urine 1.006 pH, Urine 7.0 Protein, Urine NEGATIVE Glucose, Urine NEGATIVE Blood, Urine NEGATIVE Ketones, Urine NEGATIVE Bilirubin, Urine NEGATIVE Urobilinogen, Urine <2.0 Nitrite, Urine NEGATIVE Leukocyte Esterase, Urine NEGATIVE URINALYSIS WITH REFLEX CULTURE AND MICROSCOPIC Narrative: The following orders were created for panel order Urinalysis with Reflex Culture and Microscopic. Procedure Abnormality Status --------- ------ Urinalysis with Reflex C...[[id number]] Normal Final result Extra Urine Callaway Tube[[id number]] In process Please view results for these [...] Kvng Meléndez 12/07/2023 12:24 PM Dictation workstation: [id number] Medical Decision Making: Patient appears well nontoxic. [...] ED Physician in the absence of a cover maker: yes Comments: EKG interpreted by Dr. Celso Cabezas: Normal sinus rhythm at 69 bpm. MO interval 170 ms. QTc of437 ms. PACs. Celso Cabezas DO 12/07/23 1250 documented in this [facility] Work Phone: 1(951) 793-454002-16-2024 Physician Emergency department Note* Celso Cabezas DO [...] Name Age of Onset Heart murmur Mother Tununak Obrecht Hyperlipidemia Mother Tununak Obrecht Arthritis Mother Tununak Obrecht Hearing loss Mother Tununak Obrecht Hypertension Mother Tununak Obrecht Vision loss Mother Tununak Obrecht Other (CARDIAC DISORDER) Father Pneumonia Father [...] using a different testing methodology at [facility] than at other [facility]. Direct result comparisons should only be made within the same method. URINALYSIS WITH REFLEX CULTURE AND MICROSCOPIC - Normal Color, Urine Straw Appearance, Urine Clear Specific Madison, Urine 1.006 pH, Urine 7.0 Protein, Urine NEGATIVE Glucose, Urine NEGATIVE Blood, Urine NEGATIVE Ketones, Urine NEGATIVE Bilirubin, Urine NEGATIVE Urobilinogen, Urine <2.0 Nitrite, Urine NEGATIVE Leukocyte Esterase, Urine NEGATIVE URINALYSIS WITH REFLEX CULTURE AND MICROSCOPIC Narrative: The following orders were created for panel order Urinalysis with Reflex Culture and Microscopic. Procedure Abnormality Status --------- ------ Urinalysis with Reflex C...[[id number]] Normal Final result Extra Urine Callaway Tube[[id number]] In process Please view results for these [...] Kvng Meléndez 12/07/2023 12:24 PM Dictation workstation: [id number] Medical Decision Making: Patient appears well nontoxic. [...] ED Physician in the absence of a cover maker: yes Comments: EKG interpreted by Dr. Celso Cabezas: Normal sinus rhythm at 69 bpm. MO interval 170 ms. QTc of437 ms. PACs. Celso Cabezas DO 12/07/23 1250 [facility] Work Phone: 1([phone]) [phone] Reason for referral (narrative)* Consultation (Routine) - Authorized Specialty Diagnoses / Procedures Referred By Contac t Referred To Contact Otolaryngology Celso Cabezas DO [address] [place] [address] Department Emergency Medicine [place] [id number] Referral ID Status Reason Start Date Expiration Date Visits Requested Visits Authorized [id number] Authorized Specialty Services Required 12/07/2023 12/06/2024 1 1 * Consultation (Routine) - Authorized Specialty Diagnoses / Procedures Referred By Contac t Referred To Contact Family Medicine / Primary Care Celso Caebzas DO [address] [place] [address] Referral ID Status Reason Start Date Expiration Date Visits Requested Visits Authorized [id number] Authorized Specialty Services Required 12/07/2023 12/06/2024 1 1 [facility] Work Phone: 1(523) 909-392502-09-2024 History of Present illness Narrative* Eladio Kingsley [...] than 5 seconds to distal digits. Nails 52474 left foot nails 32559 right foot are elongated thickened mycotic crumbling [...] for foot nail care documented in this [id number] History of Present illness Narrative* Daysi Arenas, [...] DO 11/15/23 8:27 AM documented [facility] Work Phone: 1(153) 478-707001-25-2024 Reason for referral (narrative)* Consultation (Routine) - Authorized Specialty Diagnoses / Procedures Referred By Foster bland Referred To Contact Family Medicine / Primary Care Bhargavi Feliciano PA-C [address] [facility] [place] [address] Referral ID Status Reason Start Date Expiration Date Visits Requested Visits Authorized [id number] Authorized Specialty Services Required 11/15/2023 11/14/2024 1 1 [facility] Work Phone: 1(347) 692-494101-21-2024 Hospital Discharge instructions* Discharge Instructions* Sai Myers MD - 11/11/2023 10:19 PM EST Recommend contacting your primary care physician's office tomorrow. documented in [facility]Gu[facility] Work Phone: 1(376) 137-562501-15-2024 Evaluation + Plan note* Assessment & Plan Note - Don Barrera MD - 11/05/2023 12:36 PM ESTAssociated Problem(s): MARIANGEL (generalized anxiety disorder) Patient uncomfortable with anxiety, some trouble sleeping at night, able to accomplish day-to-day activities without difficulty, try low-dose sertraline. [facility] Work Phone: 1(708) 314-146301-15-2024 Evaluation + Plan note* Assessment & Plan Note - Don Barrera MD - 11/05/2023 12:36 PM ESTAssociated Problem(s): Lumbosacral spondylosis Patient requested to see pain management again. [facility] Work Phone: 1([phone]) 271-254701-15-2024 Miscellaneous Notes* Assessment & Plan Note - [...] claudication. Carotid ultrasound up-to-date. documented in this [facility] Work Phone: 1(105) 927-592401-15-2024 Evaluation + Plan note* Assessment & Plan Note - Don Barrera MD - 11/05/2023 12:35 PM ESTAssociated Problem(s): BPH (benign prostatic hyperplasia) Currently stable no change. 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 [facility] Work Phone: [phone]) 701-667101-15-2024 Evaluation + Plan note* Assessment & Plan Note - Don Barrera MD - 11/05/2023 12:35 PM ESTAssociated Problem(s): Hypertension Blood pressure under good control renal function stable, no change. [facility] Work Phone: 1([phone] 264-791101-15-2024 Evaluation + Plan note* Assessment & Plan Note - Don Barrera MD - 11/05/2023 12:35 PM ESTAssociated Problem(s): Abdominal aneurysm (CMS/HCC) Ultrasound stable within the past year. [facility] Work Phone: [phone] 366-839801-15-2024 Evaluation + Plan note* Assessment & Plan Note - Don Barrera MD - 11/05/2023 12:35 PM ESTAssociated Problem(s): Hyperlipidemia Taking and tolerating pravastatin, liver function testing normal, no change. [facility] Work Phone: [phone] Evaluation + Plan note* Assessment & Plan Note - Don Barrera MD - 11/05/2023 12:34 PM ESTAssociated Problem(s): Inflammatory polyarthropathy (CMS/HCC) Follows with rheumatology on a regular basis. [facility] Work Phone: [phone] Evaluation + Plan note* Assessment & Plan Note - Don Barrera MD - 11/05/2023 12:34 PM ESTAssociated Problem(s): Peripheral arterial occlusive disease (CMS/HCC) No active signs or symptoms of claudication. Carotid ultrasound up-to-date. [facility] Work Phone: [phone]) [phone] History of Present illness Narrative* Don Barrera [...] In Primary Care - Established Abdominal aneurysm ([facility]) I71.40 Ultrasound stable within the past year. Hypertension - Primary I10 Blood pressure under good control renal function stable, no change. Relevant Orders Comprehensive Metabolic Panel Follow Up In Primary Care - Established Lumbosacral spondylosis M47.817 Patient requested to see pain management again. 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 Carotid ultrasound up-to-date. Inflammatory polyarthropathy ([facility]) M06.4 Follows with rheumatology on [...] Primary Care - Established documented in this [facility] Work Phone: [phone] History of Present illness Narrative* Daysi Arenas DO - 11/01/2023 1:15 PM EST Subjective Patient ID: Fawn Campos is a 88 y.o. male who presents for GERD and Dysphagia (X 2 months Breads, scalloped potatoes, spray drier foods. ). GERD He reports no [...] DO 11/01/23 1:18 PM documented in this [facility] Work Phone: [phone] History of Present illness Narrative* Eladio Kingsley [...] acute on chronic nature. documented in this [id number] History of Present illness Narrative* Eladio Kingsley [...] and set for 2 minutes. Utilizing an Angolan anvil and 6100 blade, the nail medially [...] antiplatelet risk with aspirin. documented in this [id number] Instructions* Patient Instructions* Ayana Bojorquez, TECHNOLOGIST - [...] daily until follow-up appointment. documented in this [id number] History of Present illness Narrative* Eladio Kingsley [...] medical complexity decision making. documented in this [id number] History of Present illness Narrative* Clark Lees PA-C - 10/06/2023 11:35 AM EST [facility] NOTE: Name: Fawn Cameron, 88 y.o. CSN:[id number] PCP: Don Barrera MD ALL: No Known [...] Ketones, Urine NEGATIVE NEGATIVE mg/dl POC Specific [place], Urine 1.015 1.005 - 1.035 POC Blood, [...] available. Clark Lees PA-C Advanced Practice Provider [facility] documented in this [facility] Work Phone: [phone]) [phone] Instructions* Patient Instructions* Clark Lees PA-C - [...] blood in your urine. documented in this [facility] Work Phone: [phone] 924-231312-08-2023 Evaluation + Plan note* Assessment & Plan Note - Don Barrera MD - 09/28/2023 4:10 PM ESTAssociated Problem(s): 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 Patient with increasing refluxing, burping belching, advised to increase PPI to twice daily for thenext week, Co. prescribe Carafate for the next week to 10 days, call if not improving, sent for EGD. [facility] Work Phone: [phone] 485-334112-08-2023 Miscellaneous Notes* Assessment & Plan Note - Don Barrera MD - 09/28/2023 4:10 PM ESTAssociated Problem(s): 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 Patient with increasing refluxing, burping belching, advised to increase PPI to twice daily for thenext week, Co. prescribe Carafate for the next week to 10 days, call if not improving, sent for EGD. [facility] Work Phone: [phone] 427-797912-08-2023 History of Present illness Narrative* Don Barrera [...] Orders Referral to Gastroenterology [facility] Work Phone: [phone] 704-197512-08-2023 Instructions* Patient Instructions* Don Barrera MD - 09/28/2023 2:20 PM EST Take omeprazole twice a day for the next week, add Carafate for the next week and we are going to take a look at your stomach [facility] Work Phone: [phone] History of Present illness Narrative* Robb Colindres MD - 09/17/2023 8:00 AM EST Subjective Patient ID: Andres Cameron is a 88 y.o. male. HPI Patient is here for 1 month medication check. He was taken off Flomax and started on Uroxatral. He states this has been helpful. Most recent PSA was 0.33 on 05/13. Prior PSA was 0.29 on 07/22. Previous PSA was 0.25 on 05/11...pt does [...] with PSA 1 year [facility] Work Phone: [phone] Instructions* Patient Instructions* Delta Bangura MD - 08/29/2023 10:15 AM EST Please monitor each eye daily with Amsler Grid. AREDS 2 Vitamins are available over the counter at any drug store. -continue: Blink tears artificial tears- 1 drop three times a day Both eyes . Please call the office ([phone]) immediately if you notice more flashes of light, a sudden increase in floaters, or a sudden change in vision. If you have any questions please contact our office at [phone]. After office hours or on the weekend, please call Dr. Bangura on his cell phone at [phone]. [facility] History of Present illness Narrative* [...] 379.21, ICD10: H43.813 -Please call the office ([phone]) immediately if you notice more flashes of [...] options. Delta Bangura MD' documented in this [facility] Emergency department Note * Sai [...] little woozy but his dizziness has resolved. [place] Coma Scale Score: 15 Patient History Past [...] his BP being elevated. [facility] 1([phone] 215-238510-01-2023 Emergency department Triage note* ANNIE Albarran - [...] was due to his BP being elevated. [facility] Work Phone: [phone] Physician Emergency department Note* Sai Myers MD [...] little woozy but his dizziness has resolved. [place] Coma Scale Score: 15 Patient History Past [...] Procedure Procedures Sai Myers MD 07/23/23 0100 [facility] Work Phone: [phone] 492-192808-10-2023 Evaluation + Plan note* Assessment & Plan [...] office if the injection is not helpful. [facility] Work Phone: [phone] Miscellaneous Notes* Assessment & Plan Note - [...] injection is not helpful. documented in this [facility] Work Phone: 1([phone]) 688-553808-10-2023 History of Present illness Narrative* Don Barrera [...] injection is not helpful. documented in this [facility] Work Phone: [phone] Evaluation + Plan note* Assessment & Plan Note - Don Barrera MD - 05/04/2023 10:19 AM EDTAssociated Problem(s): BPH (benign prostatic hyperplasia) Some symptoms, not inhibiting day-to-day activities. [facility] Work Phone: [phone] Miscellaneous Notes* Assessment & Plan Note - [...] continue with current medication. documented in this [facility] Work Phone: [phone] Evaluation + Plan note* Assessment & Plan Note - Don Barrera MD - 05/04/2023 10:18 AM EDTAssociated Problem(s): Peripheral arterial occlusive disease (CMS/HCC) Check abdominal ultrasound to evaluate AAA. [facility] Work Phone: [phone] Evaluation + Plan note* Assessment & Plan Note - Don Barrera MD - 05/04/2023 10:18 AM EDTAssociated Problem(s): Hypertension Blood pressure under good control, no change with medication. [facility] Work Phone: [phone] Evaluation + Plan note* Assessment & Plan Note - Don Barrera MD - 05/04/2023 10:18 AM EDTAssociated Problem(s): Abdominal aneurysm (CMS/HCC) Check ultrasound to evaluate for any change. Last ultrasound was a year ago. [facility] Work Phone: [phone] Evaluation + Plan note* Assessment & Plan Note - Don Barrera MD - 05/04/2023 10:18 AM EDTAssociated Problem(s): Hyperlipidemia Laboratory testing is normal, continue with current medication. [facility] Work Phone: [phone] 934-795207-14-2023 History of Present illness Narrative* Don Barrera [...] General Don Barrera MD [facility] Attributed Provider Review of Systems Constitutional: [...] abdominal aortic aneurysm (AAA) without rupture (CMS/HCC) Relevant Orders Vascular US abdominal aorta anuerysm AAA screening documented [facility] Work Phone: [phone] 166-456005-03-2023 Instructions* Patient Instructions* Delta Bangura MD - 02/21/2023 8:42 AM EDT Continue: Blink tears three times a day Both eyes If you have any questions please contact our office at [phone]. After office hours or on the weekend, please call Dr. Bangura on his cell phone at [phone]. documented in this encounterHol[facility]05-[facility] History of Present illness Narrative* [...] 379.21, ICD10: H43.813 -Please call the office ([phone]) immediately if you notice more flashes of [...] options. Delta Bangura MD documented in this encounterHol[facility]04-21-[facility] History of Present illness Narrative* Eladio Kingsley Jr., DP - 02/09/2023 8:25 AM EDT Patient is [...] than 5 seconds to distal digits. Nails 18380 left foot nails 79469 right foot are elongated thickened mycotic crumbling [...] for foot nail care documented in this [id number] History of Present illness Narrative* Eladio Kingsley [...] than 5 seconds to distal digits. Nails 91431 left foot nails 61573 right foot are elongated thickened mycotic crumbling [...] for foot nail care documented in this [id number] History of Present illness Narrative* No headache, [...] urine urge [facility] Work Phone: [phone] 461-217510-28-2022 History of Present illness Narrative* Eladio Kingsley [...] than 5 seconds to distal digits. Nails 24442 left foot nails 68553 right foot are elongated thickened mycotic crumbling [...] for foot nail care documented in this [id number] History of Present illness Narrative* Eladio Kingsley [...] than 5 seconds to distal digits. Nails 63649 left foot nails 53792 right foot are elongated thickened mycotic crumbling [...] for foot nail care documented in this [id number] Telephone encounter Note* Telephone Encounter - Jagdish Soto MA - 02/17/2022 1:46 PM EDT Received refill request for metoprolol tart 25 mg bid 180/3. Pt's last OV was 05/09/21. Follow up isdue yearly thanks. [id number] Miscellaneous Notes* Telephone Encounter - Jagdish Soto MA - 02/17/2022 1:46 PM EDT Received refill request for metoprolol tart 25 mg bid 180/3. Pt's last OV was 05/09/21. Follow up isdue yearly thanks. documented in this [id number] History of Present illness Narrative* Eladio Kingsley [...] than 5 seconds to distal digits. Nails 70724 left foot nails 82812 right foot are elongated thickened mycotic crumbling [...] for foot nail care documented in this [id number] History of Present illness Narrative* On a scale of 0 to 10, the patient rates the pain at 1. * Pain Location: L thigh. * Pain Quality: Aching and Burning. * Timing/Duration: Intermittent and > 12 weeks duration. [facility] Work Phone: [phone] History of Present illness Narrative* Eladio Kingsley [...] than 5 seconds to distal digits. Nails 00009 left foot nails 88947 right foot are elongated thickened mycotic crumbling [...] for foot nail care documented in this [id number] History of Present illness Narrative* On a scale of 0 to 10, the patient rates the pain at 1. * now and 8/10 at its worst. * Pain Location: lt front lateral thigh. * Pain Quality: Aching and Sharp. * Pain Radiation: in lt groin. * Sensory/ Motor: Pins and [place] and bilat lower extremitis from bilat claves [...] patient is using relaxationwith positive response. [facility] Work Phone: [phone] 556-112609-11-2021 History of Present illness Narrative* Vijay Viveros MD - 07/02/2021 7:06 AM EDT (Incomplete)This note is in progress. Dictation on: 07/02/2021 7:08 AM by: VIJAY VIVEROS [[id number]] documented in this [id number] History of Present illness Narrative* Vijay Viveros [...] is going to do physical therapy at [employer] where he works. I will see him in 6 monthsfor a year checkup. documented in this [id number] History of Present illness Narrative* Eladio Kingsley [...] than 5 seconds to distal digits. Nails 89998 left foot nails 77910 right foot are elongated thickened mycotic crumbling [...] for foot nail care documented in this [id number] History of Present illness NarrativeYealry w/PSA..Most recent [...] no recent sx...ED is chronic. No UTI [facility] Work Phone: [phone] History of Present illness Narrative* Heather Paredes MD - 05/09/2021 10:14 AM EDT Patient Name: Fawn Cameron MR #: [id number] Interventional Cardiology Heather Paredes MD, [facility] 05/09/21 Dear Don Barrera MD, Fawn Lu Cameron was seen in follow up for : Problem Bradycardia Hyperlipidemia Coronary Artery Disease Involving Inupiat Coronary Artery of Inupiat Heart Without Angina Pectoris 2005-Occluded RCA mild diffuse other-- same in 2010 and did EECP 2019-stress ok pre op Assessment and Plan Coronary artery disease involving afognak coronary artery of afognak heart without angina pectoris Doing well, Medications [...] of abdominal wall History of cardiac cath CIRCLE (hard of hearing) Hyperlipidemia Hypertension HANNAH (juvenile [...] patient is not nervous/anxious. documented in this [id number] Miscellaneous Notes* Assessment & Plan Note - [...] EDT Associated Problem(s): Coronary artery disease involving afognak coronary artery of afognak heart without angina pectoris Doing well, Medications reviewed and recommended to continue asa Followup 1 year documented in this [id number] History of Present illness Narrative3 weeks with open area L ear, had treated 3 years ago with ENT, + sensitiveMP[facility] Work Phone: [phone] 574-970801-28-2015 History of Past illness Narrative* Problem Noted Date Resolved Date Other vitreous opacities - Both Eyes 11/18/2014 12/30/2015 Tear film insufficiency, unspecified - Both Eyes 11/18/2014 12/30/2015 Lens replaced by other means - Both Eyes 015 12/30/2015 S/P laser cataract surgery - Both Eyes 5 12/30/2015 documented as of this encounter (statuses as of 02/21/2023) [facility] History of Past illness Narrative* Problem Noted Date Diagnosed Date Resolved Date Other vitreous opacities - Both Eyes 11/18/2014 12/30/2015 Tear film insufficiency, uns pecified - Both Eyes 11/18/2014 12/30/2015 Lens replaced by other means - Both Eyes 11/18/2014 12/30/2015 S/P laser cataract surgery - Both Eyes 11/18/2014 12/30/2015 documented as of this encounter (statuses as of 08/30/2023) [facility] Author Karri Howell [facility] Note Date/Time June 17, 2025 4: 37pm [facility] Medical Records Department [address] [place] [address] Anesthesia Postop Eval I 06/17/251635 MR#: [id number] Acct: [id number] Name: FAWN CAMERON Lu Rep #:[id number] 1 : 1935 89 From: Karri CANDELARIA PCP: Dr. Devan Barrera MD Status: [place] [facility] [place] Race: C Location: [place] [address] Anesthesia: Postop Eval I Current Vital Signs Temperature: 98.1 F Pulse Rate: 79 Blood Pressure: 110/65 Respiratory Rate: 16 Pulse Ox: 95 Assessment Airway patent: Yes Spontaneous unlabored respirations: Yes nausea: No Vomiting: No Anesthesia Complication: No Fluid Hydration Crystalloid volume administer (ml): 500 Total IV fluid infused: 500 Progress Note Anesthesia document: Postop Eval 1 completed: Yes 06/17/251636 <Electronically signed by Karri Howell CRNA> Date _ Karri Howell CRNA Cosigner Signature: Date CC: ~ Signed [facility] Work Phone: Evaluation note* Diagnosis Callus of foot Corns and callosities OM (onychomycosis) Dermatophytosis of nail PAD (peripheral artery disease) (HCC) Unspecified peripheral vascular disease [facility] Diagnosis Coronary artery disease involving afognak coronary artery of afognak heart without angina pectoris- Primary [facility] Diagnosis Coronary artery disease involving afognak coronary artery of afognak heart without angina pectoris Mixed hyperlipidemia Bradycardia Other specified cardiac dysrhythmias [facility]* Diagnosis Onychomycosis- Primary Dermatophytosis of nail Peripheral vascular disease, unspecified (HCC) Peripheral vascular disease, unspecified [facility]* Diagnosis Status post left hip replacement- Primary [facility] Diagnosis Status post left hip replacement- Primary [facility]* Diagnosis Onychomycosis- Primary Dermatophytosis of nail Peripheral vascular disease, unspecified (HCC) Peripheral vascular disease, unspecified [facility]* Diagnosis OM (onychomycosis)- Primary Dermatophytosis of nail PAD (peripheral artery disease) (HCC) Unspecified peripheral vascular disease [facility]* Diagnosis OM (onychomycosis)- Primary Dermatophytosis of nail Peripheral vascular disease, unspecified (HCC) Peripheral vascular disease, unspecified [facility]* Diagnosis Onychomycosis- Primary Dermatophytosis of nail Peripheral vascular disease, unspecified (HCC) Peripheral vascular disease, unspecified [facility]* Diagnosis Onychomycosis- Primary Dermatophytosis of nail Peripheral vascular disease, unspecified (HCC) Peripheral vascular disease, unspecified [facility]* Diagnosis Epiretinal membrane (ERM) of left eye- Primary Nonexudative age-related macular degeneration, bilateral, early dry stage PVD (posterior vitreous detachment), bilateral Pseudophakia of both eyes Lens replaced by other means Essential hypertension Unspecified essential hypertension Hypercholesteremia Pure hypercholesterolemia Osteoarthritis, unspecified osteoarthritis type, unspecified site documented in this encounter [facility] note* Diagnosis Routine general medical examination at health care facility- Primary Routine general medical examination at a health care facility Benign prostatic hyperplasia, unspecified whether lower urinary tract symptoms present Primary hypertension Unspecified essential hypertension Peripheral arterial occlusive disease (CMS/HCC) Unspecified peripheral vascular disease Abdominal aneurysm (CMS/HCC) 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 Mixed hyperlipidemia Infrarenal abdominal aortic aneurysm (AAA) without rupture ([facility]/HCC) documented in this encounter [facility] Work Phone: Evaluation note* Diagnosis Chronic right shoulder pain- Primary Pain in joint, shoulder region documented in this encounter [facility] Work Phone: [phone] note* Diagnosis Dizziness- Primary Dizziness and giddiness Vertigo Dizziness and giddiness documented in this encounter [facility] Work Phone: Evaluation note* Diagnosis Epiretinal membrane (ERM) of left eye- Primary Nonexudative age-related macular degeneration, bilateral, early dry stage PVD (posterior vitreous detachment), bilateral Pseudophakia of both eyes Lens replaced by other means Essential hypertension Unspecified essential hypertension Hypercholesteremia Pure hypercholesterolemia documented in this encounter [facility]* Diagnosis Benign prostatic hyperplasia with lower urinary tract symptoms, symptom details unspecified Nocturia Erectile dysfunction, unspecified erectile dysfunction type Urinary frequency Nocturia associated with benign prostatic hyperplasia documented in this encounter [facility] Work Phone: Evaluation note* Diagnosis 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- Primary Esophageal reflux documented in this encounter [facility] Work Phone: [phone] note* Diagnosis Urinary frequency- Primary Dysuria documented in this encounter [facility] Work Phone: Evaluation note* Diagnosis Ingrown nail- Primary Ingrowing nail [facility] Ingrown nail- Primary Ingrowing nail [facility] Diagnosis Ingrown nail- Primary Ingrowing nail Peripheral vascular disease, unspecified (HCC) Peripheral vascular disease, unspecified [facility]* Diagnosis Hiatal hernia- Primary Diaphragmatic hernia without mention of obstruction or gangrene 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 Esophageal reflux documented in this encounter [facility] Work Phone: Evaluation note* Diagnosis [...] (CMS/HCC) Unspecified peripheral vascular disease Abdominal aneurysm ([facility]/HCC) 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 documented in this encounter [facility] Work Phone: Evaluation note* Diagnosis 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 Esophageal reflux Hiatal hernia Diaphragmatic hernia without mention of obstruction or gangrene documented in this encounter [facility] Work Phone: Evaluation note* Diagnosis 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- Primary Esophageal reflux Hiatal hernia Diaphragmatic hernia without mention of obstruction or gangrene documented in this encounter [facility] Work Phone: Evaluation note* Diagnosis Dizziness- Primary Dizziness and giddiness Generalized weakness documented in this encounter [facility] Work Phone: Evaluation note* Diagnosis Onychomycosis- Primary Dermatophytosis of nail PAD (peripheral artery disease) ([facility]) Unspecified peripheral vascular disease [facility] Dizziness- Primary Dizziness and giddiness documented in this encounter [facility] Work Phone: Evaluation note* Diagnosis Vestibular migraine- Primary [facility] Onychomycosis- Primary Dermatophytosis of nail PAD (peripheral artery disease) ([facility]) Unspecified peripheral vascular disease [facility] Diagnosis Nonexudative age-related macular degeneration, bilateral, [...] Anxiety state, unspecified [facility] Pain in right shoulder documented in this encounter [facility] Work Phone: Evaluation note* Diagnosis [...] (CMS-HCC) Unspecified peripheral vascular disease Abdominal aneurysm ([facility]) 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 Mixed hyperlipidemia Infrarenal abdominal aortic aneurysm (AAA) without rupture ([facility]) Chronic right shoulder pain- Primary [...] (CMS-HCC) Unspecified peripheral vascular disease Abdominal aneurysm ([facility]-H[facility]) 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 [...] mention of rupture Peripheral arterial occlusive disease ([facility]) Unspecified peripheral vascular disease 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, lumbar region Thoracic or lumbosacral neuritis or radiculitis, unspecified documented in this encounter [facility] Work Phone: Evaluation note* Diagnosis [...] Unspecified inflammatory polyarthropathy Athscl heart disease of afognak coronary artery w/o ang pctrs TIA (transient ischemic attack) Unspecified transient cerebral ischemia 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), and cerebral infarction without residual deficits documented in this encounter [facility] Work Phone: Evaluation note* Diagnosis [...] visual aura Palpitations documented in this encounter [facility] Work Phone: Evaluation note* Diagnosis [...] and giddiness Palpitations documented in this encounter [facility] Work Phone: Evaluation note* Diagnosis Coronary artery disease involving afognak coronary artery of afognak heart without angina pectoris- Primary Coronary artery disease involving afognak coronary artery of afognak heart without angina pectoris Coronary artery disease involving afognak coronary artery of afognak heart without angina pectoris Mixed hyperlipidemia Mixed hyperlipidemia Coronary artery disease involving afognak coronary artery of afognak heart without angina pectoris Coronary artery disease involving afognak coronary artery of afognak heart without angina pectoris Mixed hyperlipidemia Bradycardia Other specified cardiac dysrhythmias Onychomycosis- Primary Dermatophytosis of nail Peripheral vascular disease, unspecified (HCC) Peripheral vascular disease, unspecified [facility] Dizziness- Primary Dizziness and giddiness [...] region and thigh documented in this encounter [facility] Work Phone: Evaluation note* Diagnosis [...] without rupture (CMS-HCC) documented in this encounter [facility] Work Phone: Evaluation note* Diagnosis [...] Unspecified inflammatory polyarthropathy Athscl heart disease of afognak coronary artery w/o ang pctrs- Primary TIA (transient ischemic attack) Unspecified transient cerebral ischemia 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 documented in this encounter [facility] Work Phone: Evaluation note* Diagnosis [...] neoplasm of prostate documented in this encounter [facility] Work Phone: Evaluation note* Diagnosis Coronary artery disease involving afognak coronary artery of afognak heart without angina pectoris- Primary Coronary artery disease involving afognak coronary artery of afognak heart without angina pectoris Coronary artery disease involving afognak coronary artery of afognak heart without angina pectoris Mixed hyperlipidemia Mixed hyperlipidemia Coronary artery disease involving afognak coronary artery of afognak heart without angina pectoris Coronary artery disease involving afognak coronary artery of afognak heart without angina pectoris Mixed hyperlipidemia Bradycardia Other specified cardiac dysrhythmias Onychomycosis- Primary Dermatophytosis of nail Peripheral vascular disease, unspecified [facility] Diagnosis Coronary artery disease involving afognak coronary artery of afognak heart without angina pectoris- Primary Coronary artery disease involving afognak coronary artery of afognak heart without angina pectoris Coronary artery disease involving afognak coronary artery of afognak heart without angina pectoris Mixed hyperlipidemia Mixed hyperlipidemia Coronary artery disease involving afognak coronary artery of afognak heart without angina pectoris Coronary artery disease involving afognak coronary artery of afognak heart without angina pectoris Mixed hyperlipidemia Bradycardia [...] on left side documented in this encounter [facility] Work Phone: Evaluation note* Diagnosis [...] on left side documented in this encounter [facility] Work Phone: Evaluation note* Diagnosis [...] pain- Primary Cervicalgia documented in this encounter [facility] Work Phone: Evaluation note* Diagnosis [...] Neck pain Cervicalgia documented in this encounter [facility] Work Phone: Evaluation note* Diagnosis [...] initial encounter (Multi) documented in this encounter [facility] Work Phone: Evaluation note* Diagnosis [...] by other means documented in this encounter [facility] Work Phone: Evaluation note* Diagnosis [...] Special screening for malignant neoplasm of prostate Primary hypertension- Primary Unspecified essential hypertension 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 Esophageal reflux Closed fracture of roof of orbit, unspecified laterality, sequela Closed fracture of sacrum, unspecified portion of sacrum, sequela Subdural hematoma (Multi) Subdural hemorrhage Fall, sequela Benign prostatic hyperplasia with lower urinary tract symptoms, symptom details unspecified documented in this encounter [facility] Work Phone: Evaluation note* Diagnosis [...] Special screening for malignant neoplasm of prostate Primary hypertension- Primary Unspecified essential hypertension 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 Esophageal reflux Closed fracture of roof of orbit, unspecified laterality, sequela Closed fracture of sacrum, unspecified portion of sacrum, sequela Subdural hematoma (Multi) Subdural hemorrhage Fall, sequela Benign prostatic hyperplasia with lower urinary tract symptoms, symptom details unspecified Routine general medical examination at health care facility- Primary Routine general medical examination at a health care facility Primary hypertension Unspecified essential hypertension 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 Esophageal reflux Migraine with visual aura Hypertension, unspecified type Fall, initial encounter Open fracture of roof of right orbit, initial encounter (Multi) MARIANGEL (generalized anxiety disorder) Generalized anxiety disorder Vertigo Dizziness and giddiness Hyperlipidemia, unspecified hyperlipidemia type Benign prostatic 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 lower urinary tract symptoms Nocturia Dysphagia, unspecified type documented in this encounter [facility] Work Phone: Evaluation note* Diagnosis [...] Special screening for malignant neoplasm of prostate Primary hypertension- Primary Unspecified essential hypertension 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 Esophageal reflux Closed fracture of roof of orbit, unspecified laterality, sequela Closed fracture of sacrum, unspecified portion of sacrum, sequela Subdural hematoma (Multi) Subdural hemorrhage Fall, sequela Benign prostatic hyperplasia with lower urinary tract symptoms, symptom details unspecified Routine general medical examination at health care facility- Primary Routine general medical examination at a health care facility Primary hypertension Unspecified essential hypertension 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 Esophageal reflux Migraine with visual aura Hypertension, unspecified type Fall, initial encounter Open fracture of roof of right orbit, initial encounter (Multi) MARIANGEL (generalized anxiety disorder) Generalized anxiety disorder Vertigo Dizziness and giddiness Hyperlipidemia, unspecified hyperlipidemia type Benign prostatic 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 lower urinary tract symptoms Nocturia Dysphagia, unspecified type Head injury, initial encounter- Primary Head injury, initial encounter Subdural hemorrhage (Multi) Subdural hemorrhage documented in this encounter [facility] Work Phone: History of Present [...] chronic LBP [facility] Work Phone: History of Present illness [...] of motion/joint mobility, strength and transfers. [facility] Work Phone: History of Present illness Narrative* Patient ID confirmed using Name and . * Patient wearing mask throughout session today d/t COVID-19 precautions. * Patient with good tolerance to treatment, no c/o increased pain/discomfort in clinic. [facility] History of Present illness Narrative* [...] to just completing them with L UE. [facility] Work Phone: History of Present illness Narrative* Patient ID confirmed using Name and . * Patient wearing mask throughout session today d/t COVID-19 precautions. * Patient with good tolerance to treatment, no c/o increased pain/discomfort in clinic. Patient making progress with shoulder strength as indicated by increased resistance this session. [facility] Work Phone: History of Present illness NarrativePatient was identified by name and date. Reviewed HEP. He was able to progress reps with corestability exercises without c/o. Instructed in thera cane for self massage techniques to cont in HEP. He voiced good understanding.[facility] Work Phone: History of Present illness Narrative* [...] than prior [facility] Work Phone: History of Present illness [...] lumbar radiculopathy [facility] Work Phone: History of Present illness [...] dizziness or lightheadedness. Normotensive in clinic today. [id number] Work Phone: History of Present illness Narrative* [...] * Seen pain medicine for lumbar radiculopathy [facility] Work Phone: History of Present illness Narrative* [...] dizziness or lightheadedness. Normotensive in clinic today. [id number] [address] Work Phone: Hospital Discharge instructionsAdditional Instructions [facility]charge home with [facility], [facility] Work Phone: Instructions* Name Dates Details Instructions not documented [id number] Work Phone: reason for referral (narrative)* Consultation (Routine) - Authorized Specialty Diagnoses / Procedures Referred By Contac t Referred To Contact Gastroenterology Diagnoses 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 Don Barrera MD [address] [place] [address] Referral ID Status Reason Start Date Expiration Date Visits Requested Visits Authorized [id number] Authorized Specialty Services Required 09/28/2023 09/27/2024 1 1 Scheduling Instructions Arrange for EGD with Thomae [facility] Work Phone: reason for referral (narrative)* Consultation (Routine) - Authorized Specialty Diagnoses / Procedures Referred By Contac t Referred To Contact Primary Care Diagnoses Screening for prostate cancer Mixed hyperlipidemia Primary hypertension 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 Benign prostatic 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 lower urinary tract symptoms Osteoarthritis of spine with radiculopathy, lumbosacral region MARIANGEL (generalized anxiety disorder) Vertigo Procedures Follow Up In Primary Care - Established Don Barrera MD [address] [id number] Referral ID Status Reason Start Date Expiration Date V isits Requested Visits Authorized [id number] Authorized 11/05/2023 11/04/2024 1 1 * Consultation (Routine) - Authorized Specialty Diagnoses / Procedures Referred By Contac t Referred To Contact Pain Medicine Diagnoses Osteoarthritis of spine with radiculopathy, lumbosacral region Don Barrera MD [address] [place] [address] Mack Toribio MD [address] [place] [id number] Referral ID Status Reason Start Date Expiration Date Visits Requested Visits Authorized Authorized Consult and Treat 11/05/2023 11/04/2024 1 1 [facility] Work Phone: Reason for referral (narrative)[facility] for [facility]: Reason for visit Narrative* Initial Evaluation . lumbar DJD; S/P RTSR done Aug. * Referred by: [facility] Work Phone: Reason for visit Narrative* Cardiovascular (Routine) - Authorized Specialty Diagnoses / Procedures Referred By Foster bland Referred To Contact Cardiology Diagnoses Vertigo Palpitations Procedures Holter Or Event Director Of Sports Performance Don Barrera MD [address] [place] [address] Phone: tel: fax: Referral ID Status Reason Start Date Expiration Date V isits Requested Visits Authorized [id number] Authorized 09/01/2024 09/01/2025 1 1 [facility] Work Phone: Reason for visit Narrative* Imaging (Emergency) - Authorized Specialty Diagnoses / Procedures Referred By Foster bland Referred To Contact Radiology Diagnoses Rib pain on left side Procedures XR ribs 2 views left w chest pa or ap Lincoln King, [employer] [address] [place] [address] Phone: tel: fax: Referral ID Status Reason Start Date Expiration Date Visits Requested Visits Authorized [id number] Authorized Perform Procedure 04/10/2025 04/10/2026 1 1 [facility] Work Phone: Assessments Diagnosis Coronary artery disease invo lving afognak coronary artery of afognak heart without angina pectoris Diagnosis Arthritis of right hip- Primary 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 Diagnosis Coronary artery disease involving afognak coronary artery of afognak heart without angina pectoris Mixed hyperlipidemia Diagnosis Arthritis of left hip- Primary Diagnosis Status post left hip replacement Nontraumatic complete tear of left rotator cuff Diagnosis Nontraumatic complete tear of left rotator cuff Diagnosis Nontraumatic complete tear of left rotator cuff Rotator cuff arthropathy, left Diagnosis Rotator cuff arthropathy, left Diagnosis Coronary artery disease involving afognak coronary artery of afognak heart without angina pectoris Diagnosis Status post [...] on: 04/28/2019 12:38 PM by: VIJAY VIVEROS [[id number]] documented in this encounter* Heather Paredes MD - 05/19/2019 10:42 AM EDT Patient Name: Fawn Cameron MR #: [id number] Interventional Cardiology Heather Paredes MD, [facility] 05/19/19 Dear Don Barrera MD, Fawn Cameron was seen in follow up for : Problem Hyperlipidemia Coronary Artery Disease Involving Inupiat Coronary Artery of Inupiat Heart Without Angina Pectoris 2005-Occluded RCA mild diffuse other-- same in 2010 and did EECP Assessment and Plan Coronary artery disease involving afognak coronary artery of afognak heart without angina pectoris Good year no [...] disease) Chest pain GERD (gastroesophageal reflux disease) CIRCLE (hard of hearing) Hyperlipidemia Hypertension HANNAH (juvenile [...] on: 07/14/2019 5:16 PM by: VIJAY VIVEROS [[id number]] documented in this encounter* Vijay Viveros MD [...] on: 12/15/2019 5:04 PM by: VIJAY VIVEROS [[id number]] documented in this encounter* Santiago Bates MD - 02/24/2020 11:26 AM EDT Dictation on: 02/24/2020 11:30 AM by: SANTIAGO BATES [[id number]] documented in this encounter* Santiago Bates MD - 04/27/2020 10:10 AM EDT Dictation on: 04/27/2020 10:11 AM by: SANTIAGO BATES [[id number]] documented in this encounter* Santiago Bates MD [...] on: 06/15/2020 11:37 AM by: SANTIAGO BATES [[id number]] documented in this encounter* Vijay Viveros MD - 08/21/2020 10:43 AM EDT Dictation on: 08/21/2020 10:45 AM by: VIJAY VIVEROS [[id number]] documented in this encounter* Santiago Bates MD - 10/12/2020 12:13 PM EST Dictation on: 10/12/2020 12:15 PM by: SANTIAGO BATES [[id number]] documented in this encounter* Ann Villagomez LISW - 09/11/2019 3:27 PM EST COMPLEX DISCHARGE Date: 09/11/2019 Time: 4:51 PM Patient Name: Fawn Cameron Date of : 1935 Sex: Male Patient discharged to home today with [facility] care. [facility] at [facility] notified of patient discharge. No further discharge needs identified. Case closed. Discharge Plan Shared UM/CC and RN Living Arrangements: Spouse/significant other Support Systems: Spouse/significant other Functional Status: Independent Type of Residence: Private residence Prior to Admission Home Care Services: No Regulatory Documentation: BPCI Bundle Letter Regulatory Documentation Status: Certified(went over paper with patient ) [facility] Disposition D/C Disposition: Home Health Care Services Related to Current Admission?: Yes Agency/Destination: [facility] Care Needs : Home health care Reason [...] home therapyon home nursing. D 09/11/2019 14:14 [id number] 09/11/2019 14:26 MCB/MODL * Tiffanie Kam PTA - 09/11/2019 11:49 AM EST Physical Therapy [...] via walker Home Equipment: Wheeled Walker, Cane, Territory Business Manager Additional Comments: Been using walker for past few nights to practice before sx, otherwise indep with no AD Prior Level of Function Level of [place]: Independent with ADLs and functional transfers Lives [...] on: 07/13/2020 9:36 AM by: SANTIAGO BATES [[id number]] documented in this encounter* Vijay Vivreos MD - 09/24/2019 5:23 PM EST Fawn [...] Documents on File Type Date Recorded Patient Vacuum Pan Tender Expl anation Power of Customer Service Teller Date Activated Date Inactivated Comments 09/10/2019 12:24 PM Latest Code Status on File Code Status Date Activated Date Inactivated Comments Full Code 09/10/2019 12:24 PM Documents on File Type Date Recorded Patient Vacuum Pan Tender Expl anation Advance Directives and Living Will Documents on File Type Date Recorded Patient Vacuum Pan Tender Expl anation Advance Directives and Living Will Documents on File Type Date Recorded Patient Vacuum Pan Tender Expl anation Advance Directives and Livin g Will 09/10/2019 8:11 AM Power of Customer Service Teller Latest Code Status on File Code Status Date Activated Date Inactivated Comments Full Code 09/10/2019 12:24 PM Documents on File Type Date Recorded Patient Vacuum Pan Tender Expl anation Advance Directives and Livin g Will 09/10/2019 8:11 AM Power of Customer Service Teller Documents on File Type Date Recorded Patient Vacuum Pan Tender Expl anation Advance Directives and Livin g Will 12/10/2019 9:11 AM Power of Customer Service Teller Documents on File Type Date Recorded Patient Vacuum Pan Tender Expl anation Advance Directives and Livin g Will 12/10/2019 9:11 AM Power of Customer Service Teller Documents on File Type Date Recorded Patient Vacuum Pan Tender Expl anation Advance Directives and Livin g Will 03/08/2020 12:00 AM Power of Customer Service Teller Documents on File Type Date Recorded Patient Vacuum Pan Tender Expl anation Advance Directives and Livin g Will 03/08/2020 12:00 AM Power of Customer Service Teller Documents on File Type Date Recorded Patient Vacuum Pan Tender Expl anation Advance Directives and Livin g Will 09/10/2019 8:11 AM Documents on File Type Date Recorded Patient Vacuum Pan Tender Expl anation Advance Directives and Livin g Will 08/19/2019 7:32 AM Documents on File Type Date Recorded Patient Vacuum Pan Tender Expl anation Power of Customer Service Teller Advance Directives and Livin g Will 03/08/2020 12:00 AM Documents on File Type Date Recorded Patient Vacuum Pan Tender Expl anation Power of Customer Service Teller Advance Directives and Livin g Will 03/08/2020 12:00 AM Latest Code Status on File Date Activated Date Inactivated Comments 09/10/2019 12:24 PM Latest Code Status on File Code Status Date Activated Date Inactivated Comments Full Code 09/10/2019 12:24 PM Documents on File Type Date Recorded Patient Vacuum Pan Tender Expl anation Living Will 04/20/2016 Documents on File Type Date Recorded Patient Vacuum Pan Tender Expl anation Living Will 04/20/2016 Date Activated [...] okay with chest compressions. Decision Maker: Patient Advance Directive Response Recorded Date/ Time Do you have a Healthcare Pow er of Customer Service Teller? Yes May 21, 2025 4:00pm Name of Medical Power of Customer Service Teller Diya Cameron, May 21, 2025 4:00pm Advance Directive Response Recorded Date/ Time Do you have a Healthcare Pow er of Customer Service Teller? Yes May 21, 2025 4:00pm Name of Medical Power of Customer Service Teller Diya Cameron, May 21, 2025 4:00pm Do you have a Healthcare Pow er of Customer Service Teller? No June 16, 2025 3:44pm Documents on File Type Date Recorded Patient Vacuum Pan Tender Expl anation Advance Directives and Living Will 04/20/2016 Living Will 04/20/2016 Date Activated Date Inactivated Comments 05/14/2025 5:32 PM Question Answer Comments Plan of Care: Code Status Discussion Completed Decision Maker: Patient Date Activated Date Inactivated Comments 05/11/2025 1:36 AM 05/14/2025 5:32 PM Question Answer Comments Plan of Care: Code Status Discussion Completed Patient reports that he does not want intubation, however he is okay with chest compressions. Decision Maker: Patient Documents on File Type Date Recorded Patient Vacuum Pan Tender Expl anation Advance Directives and Living Will 04/20/2016 Living Will 04/20/2016 Date Activated Date Inactivated Comments 08/06/2025 1:39 PM Date Activated Date Inactivated Comments 05/14/2025 5:32 PM 08/06/2025 1:39 PM Question Answer Comments Plan of Care: [...] Family history of pneumonia: Father(V19.8, Z83.6) Status:Active Relationship Condition Age at Onset Recorded Date/T alejandro mother Hypertension Unknown Hyperlipidemia Unknown Osteoarthritis Unknown Hearing loss Unknown Vision loss Unknown father Cardiac disease Unknown Pneumonia Unknown Cerebrovascular accident (CVA) Unknown Attempted suicide Unknown Reason for Referral Status Reason Specialty Diagnoses / Procedures Referred By Contact Referred To Contact Authorized Physical Therapy / Rehabilitation Diagnoses Arthritis of left hip Vijay Viveros MD [address] [place] [address] Status Reason Specialty Diagnoses / Procedures Referre d By Contact Referred To Contact Closed Radiology Diagnoses Nontraumatic complete tear of left rotator cuff Procedures MR Shoulder Left Without Contrast Vijay Viveros MD [address] [place] [address] Status Reason Specialty Diagnoses / Procedures Referred By Contact Referred To Contact Authorized Home Health Services Diagnoses Status post total replacement of left hip Vijay Viveros MD [address] [place] [address] Status Reason Specialty Diagnoses / Procedures Referre d By Contact Referred To Contact Closed Radiology Diagnoses Arthritis of left hip Procedures CT Hip Left Without Contrast Vijay Viveros MD [address] [place] [address] Status Reason Specialty Diagnoses / Procedures Referred By Contact Referred To Contact Authorized Cardiology Diagnoses Coronary artery disease involving afognak coronary artery of afognak heart without angina pectoris Procedures ECG 12 Lead Heather Paredes MD [address] [place] [address] Specialty Diagnoses / Procedures Referred By Contac t Referred To Contact Cardiology Diagnoses 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) Procedures Vascular US abdominal aorta anuerysm AAA screening Don Barrera MD [address] [place] [address] Referral ID Status Reason Start Date Expiration Date Visits Requested Visits Authorized [id number] Authorized Perform Procedure 05/04/2023 10/31/2023 1 1 Specialty Diagnoses / Procedures Referred By Contac t Referred To Contact Orthopaedic Surgery / Orthopedic Surgery Diagnoses Chronic right shoulder pain Procedures Joint Injection Large/Arthrocentesis: R subacromial bursa Don Barrera MD [address] [place] [address] Referral ID Status Reason Start Date Expiration Date V isits Requested Visits Authorized [id number] Authorized 05/31/2023 11/27/2023 1 1 Specialty Diagnoses / Procedures Referred By Contac t Referred To Contact Radiology Diagnoses 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 Hiatal hernia Procedures FL GI esophagram Daysi Arenas, DO [address] [facility], [address] [place] [address] Referral ID Status Reason Start Date Expiration Date Visits Requested Visits Authorized [id number] Pending Review Perform Procedure 11/01/2023 10/31/2024 1 1 Specialty Diagnoses / Procedures Referred By Contac t Referred To Contact Radiology Diagnoses Pain in right shoulder Procedures XR shoulder right 2+ views Mack Toribio MD [address] [place] [address] Referral ID Status Reason Start Date Expiration Date Visits Requested Visits Authorized [id number] Authorized Perform Procedure 03/27/2024 03/27/2025 1 1 Specialty Diagnoses / Procedures Referred By Contac t Referred To Contact Radiology Diagnoses Radiculopathy, lumbar region Procedures MR pelvis wo IV contrast Mack Toribio MD [address] [place] [address] Referral ID Status Reason Start Date Expiration Date Visits Requested Visits Authorized [id number] Authorized Perform Procedure 07/17/2024 07/17/2025 1 1 Specialty Diagnoses / Procedures Referred By Contac t Referred To Contact Radiology Diagnoses Radiculopathy, lumbar region Procedures MR lumbar spine wo IV contrast Mack Toribio MD [address] [place] [address] Referral ID Status Reason Start Date Expiration Date Visits Requested Visits Authorized [id number] Authorized Perform Procedure 07/17/2024 07/17/2025 1 1 Specialty Diagnoses / Procedures Referred By Contac t Referred To Contact Cardiology Diagnoses Athscl heart disease of afognak coronary artery w/o ang pctrs TIA (transient ischemic attack) Benign hypertensive heart disease without congestive heart failure Procedures Transthoracic Echo (TTE) Complete MO ECHO TTHRC R-T 2D W/WOM-MODE COMPL SPEC&COLR D Otoniel Salcedo MD [address] [facility] [address] [place] [address] Referral ID Status Reason Start Date Expiration Date Visits Requested Visits Authorized [id number] Authorized Perform Procedure 07/03/2024 07/03/2025 1 1 Specialty Diagnoses / Procedures Referred By Contac t Referred To Contact Radiology Diagnoses Left hip pain Procedures XR hip left with pelvis when performed 2 or 3 views Don Barrera MD [address] [place] [address] Referral ID Status Reason Start Date Expiration Date Visits Requested Visits Authorized [id number] Authorized Perform Procedure 06/12/2024 06/12/2025 1 1 Discharge Instructions * Attachments The following attachments cannot be sent through Care Everywhere. * Hip Replacement: Total: General Info (Angolan) * Indwelling Urinary Catheter Care: General Info (Angolan) documented in this encounter Chief Complaint 6 MO ABD ANEURYSM HL HTN CK REV LABSyealry w/PSA* NPV her for reports having pain in his Lt thigh in front more laterally rates 1/10 now and 8/10 at its worst does not always matter [...] LESION6 MO F/U REV LABSpt here to [facility]. pt was an [facility] pt. no complaints6 MO F/U REV [...] on Sun08/29/23 at 1000, Until Sun08/29/23 at 2159, Administer for dilation Given 08/29/2023 10:00 AM EST 1 Drop Chief Complaint and Reason for Visit Chief Complaint Admit Date SAH, FALL, MULTIPLE FX May 20, 2025 6 :52pm CT OF HEAD May 21, 2025 6:18 pm Reason for Visit Admit Date Bilateral pubic rami fractures April 6:52pm BPH (benign prostatic hyperplasia) May 20, 2025 6:52pm Carotid artery stenosis May 20, 2025 6:52pm Coronary artery disease May 20, 2025 6:52pm Debility May 20, 2025 6:52 pm Depression May 20, 2025 6:52 pm Dysphagia May 20, 2025 6:52 pm Essential (primary) hypertension May 202024 6:52pm GERD (gastroesophageal reflux disease) Lu curry 2024 6:52pm Hyperlipidemia May 20, 2025 6:52 pm Orbital floor fracture May 20, 2025 6 :52pm Orbital roof fracture May 20, 2025 6: 52pm Osteoarthritis May 20, 2025 6:52 pm Sacral fracture May 20, 2025 6:52 pm SAH (subarachnoid hemorrhage) May 20, 2025 6:52pm SDH (subdural hematoma) May 20, 2025 6:52pm TIA (transient ischemic attack) April 6:52pm Dysphagia May 26, 2025 5:4 5am Chief Complaint Admit Date SAH, FALL, MULTIPLE FX May 20, 2025 6 :52pm CT OF HEAD May 21, 2025 6:18 pm SAH, FALL, MULTIPLE FX June 15, 2025 6:07pm Reason for Visit Admit Date Bilateral pubic rami fractures April 6:52pm BPH (benign prostatic hyperplasia) May 20, 2025 6:52pm Carotid artery stenosis May 20, 2025 6:52pm Coronary artery disease May 20, 2025 6:52pm Debility May 20, 2025 6:52 pm Depression May 20, 2025 6:52 pm Dysphagia May 20, 2025 6:52 pm Essential (primary) hypertension May 202024 6:52pm GERD (gastroesophageal reflux disease) J antoinette 2024 6:52pm Hyperlipidemia May 20, 2025 6:52 pm Orbital floor fracture May 20, 2025 6 :52pm Orbital roof fracture May 20, 2025 6: 52pm Osteoarthritis May 20, 2025 6:52 pm Sacral fracture May 20, 2025 6:52 pm SAH (subarachnoid hemorrhage) May 20, 2025 6:52pm SDH (subdural hematoma) May 20, 2025 6:52pm TIA (transient ischemic attack) April 6:52pm Dysphagia May 26, 2025 5:4 5am Dysphagia June 17, 2025 2: 23pm Chief Complaint Admit Date SAH, FALL, MULTIPLE FX May 20, 2025 6 :52pm CT OF HEAD May 21, 2025 6:18 pm SAH, FALL, MULTIPLE FX June 15, 2025 6:07pm PREOP June 17, 2025 5: 00am CT OF HEAD W/O CONTRAST S09.90 July 14, 2025 4:15pm Reason for Visit Admit Date BPH (benign prostatic hyperplasia) May 20, 2025 6:52pm Carotid artery stenosis May 20, 2025 6:52pm Coronary artery disease May 20, 2025 6:52pm Debility May 20, 2025 6:52 pm Depression May 20, 2025 6:52 pm Essential (primary) hypertension May 202024 6:52pm GERD (gastroesophageal reflux disease) J antoinette 2024 6:52pm Hyperlipidemia May 20, 2025 6:52 pm Osteoarthritis May 20, 2025 6:52 pm TIA (transient ischemic attack) April 6:52pm Bilateral pubic rami fractures April 6:52pm Dysphagia May 20, 2025 6:52 pm Orbital floor fracture May 20, 2025 6 :52pm Orbital roof fracture May 20, 2025 6: 52pm Sacral fracture May 20, 2025 6:52 pm SAH (subarachnoid hemorrhage) May 20, 2025 6:52pm SDH (subdural hematoma) May 20, 2025 6:52pm Dysphagia May 26, 2025 5:4 5am Dysphagia June 17, 2025 2: 23pm Additional Source Comments Assessment & Plan Note - Heather Paredes MD - 04/22/2018 12:15 PM EDTAssessment & Plan Note - Heather Paredes MD - 05/19/2019 10:39 AM EDT Miscellaneous Notes (unrecog nized section and content) Associated Problem(s): Coronary artery disease involving afognak coronary artery of afognak heart without angina pectoris Patient has been doing very well since being evaluated in the emergency room, without any discomforts that he had previously. 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 We will continue watching clinically and no further workup is needed at this point timein this encounter Associated Problem(s): Hyperlipidemia Per PCP Associated Problem(s): Coronary artery disease involving afognak coronary artery of afognak heart without angina pectoris Good year no [...] PACU without intraoperative complication. D 09/10/2019 13:49 [id number] 09/10/2019 14:24 MCB/MODL Brief Post Operative Note Patient Name: Fawn Cameron : 1935 (84 y.o.) Date of Service: 09/10/2019 CSN: [id number] Procedure(s): Left Total Hip Replacement Robotic Pre-Operative Diagnoses: * left hip arthritis Post-Operative Diagnoses: * Arthritis of left hip [M16.12] Surgeon(s) and Role: * Vijay Viveros MD - Primary Anesthesiologist: Gracie Valencia MD Anesthesiologist Deputy Sheriff Bailiff: EDUARD Craft Whizzer: Lincoln Burt RN; Madiha Cummins RN Display Decorator: Ijeoma Ruvalcaba, TECHNOLOGIST Scrub Person: Lea Pantoja RN DELIVERY SPECIALIST: Madina Martin RN Operative findings: djd Intra and immediate post-operative complications: none Type of anesthesia used: Spinal Estimated blood loss: 200 mL Estimated urine output: 0 mL Specimen(s): ID Type Source Tests Collected by Time Destination A : Bone Femoral Head, Left TISSUE EXAM Vijay Viveros MD 09/10/2019 1044 Implant(s): Implant Name Type Inv. Item Serial No. Cyber Security Instructor Lot No. LRB No. Used Action CUP 54MM CLUSTER MILIAN TRIDENT PSL - [id number] CUP 54MM CLUSTER MILIAN TRIDENT PSL IZABEL OR [id number] Left 1 Implanted INSERT 36MM 10DEG F COMP X3 TRIDENT - [id number] INSERT 36MM 10DEG F COMP X3 TRIDENT IZABEL OR [id number] Left 1 Implanted STEM 127DEG SZ6 FEM ACCOLADE II - [id number] STEM 127DEG SZ6 FEM ACCOLADE II IZABEL OR [id number] Left 1 Implanted HEAD 36MM 5MM V40 FEM LFIT ANATOMIC - [id number] HEAD 36MM 5MM V40 FEM LFIT ANATOMIC [...] Shoulder Left Without Contrast Vijay Viveros MD [address] [place] [address] Reason Comments Follow-up Status Reason Specialty Diagnoses / Procedures Referred By Contact Referred To Contact Closed Radiology Diagnoses Coronary artery disease involving afognak coronary artery of afognak heart without angina pectoris Procedures NM Myocardial Perfusion Study Single - Stress Only NM Myocardial Perfusion Multiple SPECT Heather Paredes MD [address] [place] [address] Reason Comments Follow-up Suture / Staple Removal Status Reason Specialty Diagnoses / Procedures Referre d By Contact Referred To Contact Diagnoses Arthritis of left hip Arthritis of left hip [M16.12] Procedures MO TOTAL HIP ARTHROPLASTY Left total hip replacement [53957] Vijay Viveros MD [address] [place] [address] Status Reason Specialty Diagnoses / Procedures Referre d By Contact Referred To Contact Closed Radiology Diagnoses Arthritis of left hip Procedures CT Hip Left Without Contrast Vijay Viveros MD [address] [place] [address] Reason Comments Follow-up Suture / Staple Removal [...] X 2 months Breads, s calloped potatoes, spray drier foods. Specialty Diagnoses / Procedures Referred By Contrenetta t Referred To Contact Gastroenterology Diagnoses 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 Don Barrera MD [address] [place] [address] Referral ID Status Reason Start Date Expiration Date Visits Requested Visits Authorized [id number] Authorized Specialty Services Required 09/28/2023 09/27/2024 1 1 Reason Comments 6 mo labs Specialty Diagnoses / Procedures Referred By Contrenetta t Referred To Contact Radiology Diagnoses 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 Hiatal hernia Procedures FL GI esophagram Daysi Arenas, DO [address] [facility] [address] [place] [address] Referral ID Status Reason Start Date Expiration Date Visits Requested Visits Authorized [id number] Pending Review Perform Procedure 11/01/2023 10/31/2024 1 [...] visual aura Dizziness Auras Don Barrera MD [address] [place] [address] Sage Kwon MD [address] [address] Referral ID Status Reason Start Date Expiration Date Visits Re quested Visits Authorized [id number] Closed 12/20/2023 12/19/2024 1 1 Reason Comments 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 DLS by Dr Barrera was 06/03/2024. Specialty Diagnoses / Procedures Referred By Foster bland Referred To Contact Radiology Diagnoses Radiculopathy, lumbar region Procedures MR pelvis wo IV contrast Mack Toribio MD [address] [place] [address] Referral ID Status Reason Start Date Expiration Date Visits Requested Visits Authorized [id number] Authorized Perform Procedure 07/17/2024 07/17/2025 1 1 Specialty Diagnoses / Procedures Referred By Contac t Referred To Contact Radiology Diagnoses Radiculopathy, lumbar region Procedures MR lumbar spine wo IV contrast Mack Toribio MD [address] [place] [address] Referral ID Status Reason Start Date Expiration Date Visits Requested Visits Authorized [id number] Authorized Perform Procedure 07/17/2024 07/17/2025 1 1 Specialty Diagnoses / Procedures Referred By Contac t Referred To Contact Cardiology Diagnoses Athscl heart disease of afognak coronary artery w/o ang pctrs TIA (transient ischemic attack) Benign hypertensive heart disease without congestive heart failure Procedures Transthoracic Echo (TTE) Complete MO ECHO TTHRC R-T 2D W/WOM-MODE COMPL SPEC&COLR D Otoniel Salcedo MD [address] [place] [address], [place] [id number] Referral ID Status Reason Start Date Expiration Date Visits Requested Visits Authorized [id number] Authorized Perform Procedure 07/03/2024 07/03/2025 1 1 Reason Comments Dizzy,shakey Specialty Diagnoses / Procedures Referred By Contac t Referred To Contact Radiology Diagnoses Left hip pain Procedures XR hip left with pelvis when performed 2 or 3 views Don Barrera MD [address] [place] [id number] Referral ID Status Reason Start Date Expiration Date Visits Requested Visits Authorized [id number] Authorized Perform Procedure 06/12/2024 06/12/2025 1 1 Specialty Diagnoses / Procedures Referred By Contac t Referred To Contact Cardiology Diagnoses Abdominal aneurysm (CMS-HCC) 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) Procedures Vascular US aorta iliac duplex complete Vascular US aorta iliac duplex limited Don Barrera MD [address] [place] [address] Referral ID Status Reason Start Date Expiration Date Visits Requested Visits Authorized [id number] Pending Review Perform Procedure 06/12/2024 06/12/2025 1 [...] Expiration Date V isits Requested Visits Authorized [id number] Authorized 05/19/2024 05/19/2025 1 1 Reason Comments [...] Multi Trauma [place] [address] [place] [address] Phone: tel: fax: [facility] [address] [place] [address] Phone: tel: fax: Referral ID Status Reason Start Date Expiration Date Visits Re quested Visits Authorized [id number] 1 1 Reason Comments Hosp F/U Fall Reason Comments Medicare Annual Wellness Visit Subsequen t 2 wk ck Specialty Diagnoses / Procedures Referred By Contac t Referred To Contact Primary Care Diagnoses Primary hypertension 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 Procedures Follow Up In Primary Care - Established Don Barrera MD [address] [address] Phone: tel: fax: Referral ID Status Reason Start Date Expiration Date V isits Requested Visits Authorized [id number] Authorized 07/17/2025 07/17/2026 1 1 Reason Comments Fall Pt states he went to reach for his walker, lost his balance and fell back against fall. Did hit head. Denies LOC. Denies other injury. C/o headache and weakness. Reason Comments Fall Specialty Diagnoses / Procedures Referred By Contac t Referred To Contact Diagnoses Head injury, initial encounter Subdural hematoma (Multi) [place] [address] [place] [address] Phone: tel: fax: [place] [address] [place] [address] Phone: tel: Referral ID Status Reason Start Date Expiration Date Visits Re quested Visits Authorized [id number] 1 1 (unrecognized sect ion and content) No Status Records FoundNo Status Records FoundNo Status Records FoundNo Status Records FoundNo Status Records FoundNo Status Records FoundNo Status Records FoundNo Status Records FoundNo Status Records FoundNo Status Records FoundNo Status Records FoundNo Status Records FoundNo Status Records FoundNo Status Records Found INFORMATION SOURCE (unrecogn ized section and content) DATE CREATED AUTHOR 05/25/2019 [facility] DATE CREATED AUTHOR AUTHOR'S ORGANIZ ATION 09/26/2019 [facility] DATE CREATED AUTHOR AUTHOR'S ORGANIZ ATION 03/07/2020 [facility] DATE CREATED AUTHOR AUTHOR'S ORGANIZ ATION 05/13/2023 [facility] DATE CREATED AUTHOR AUTHOR'S ORGANIZ ATION 06/22/2023 [facility] DATE CREATED AUTHOR AUTHOR'S ORGANIZ ATION 03/12/2025 [facility] DATE CREATED AUTHOR AUTHOR'S ORGANIZ ATION 04/13/2025 [facility] DATE CREATED AUTHOR AUTHOR'S ORGANIZ ATION 05/19/2025 [facility] DATE CREATED AUTHOR AUTHOR'S ORGANIZ ATION 07/23/2025 [facility] DATE CREATED AUTHOR AUTHOR'S ORGANIZ ATION 07/25/2025 [facility] DATE CREATED AUTHOR AUTHOR'S ORGANIZ ATION 08/02/2025 [facility] DATE CREATED AUTHOR AUTHOR'S ORGANIZ ATION 08/07/2025 [facility] DATE CREATED AUTHOR AUTHOR'S ORGANIZ ATION 08/07/2025 [facility] DATE CREATED AUTHOR AUTHOR'S ORGANIZ ATION 08/09/2025 [facility] Visit Details Home Health Visit - Care Blake n (unrecognized section and content) Visit Type -FORK ASSEMBLER Routine Visi t Discipline -Physical Therapy Problems [...] scheduled/documented in this visit Abnormal Findings Disciplines: Residential, Physical Therapy, Occupational Therapy, Speech Therapy, Home [...] scheduled/documented in this visit Pain Management Disciplines: Residential, Physical Therapy, Occupational Therapy, Speech Therapy, Home Health Aide, Medical Social Work, Spiritual Care, Art Therapy, Massage Therapy, Registered Dietitian, Student - Medical Social Work 09/12/2019 Active 1 goal linked to scheduled/documented intervention 1 goal intervention scheduled/documented in this visit Risk of Falls Disciplines: Residential, Physical Therapy, Occupational Therapy, Speech Therapy, Home [...] ambulating in home with using FWW and OK at all times. Challenged patient with stepping [...] Type -SN HH Routine Vi sit Discipline -Residential Problems Problem Start Date Status Goals Interventions Abnormal Findings Disciplines: Residential, Physical Therapy, Occupational Therapy, Speech Therapy, Home Health Aide, Medical Social Work, Spiritual Care, Art Therapy, Massage Therapy, Registered Dietitian, Student - Medical Social Work 09/12/2019 Active 1 goal linked to scheduled/documented intervention 1 goal intervention scheduled/documented in this visit Bleeding Precautions Disciplines: Residential 09/12/2019 Active - 1 problem intervention scheduled/documented in this visit Code Status Disciplines: Residential, Physical Therapy, Occupational Therapy, Speech Therapy, Home Health Aide, Medical Social Work, Spiritual Care, Art Therapy, Massage Therapy, Registered Dietitian, Student - Medical Social Work 09/12/2019 Active 1 goal linked to scheduled/documented intervention 1 goal intervention scheduled/documented in this visit Home Medication Management Disciplines: Residential 09/12/2019 Active 1 goal linked to scheduled/documented intervention 4 goal interventions scheduled/documented in this visit Infection Prevention - Catheter Disciplines: Residential 09/12/2019 Active 1 goal linked to scheduled/documented intervention 1 goal intervention scheduled/documented in this visit Learning/Teaching Needs - Catheter Disciplines: Residential 09/12/2019 Active 1 goal linked to scheduled/documented intervention 1 goal intervention scheduled/documented in this visit Learning/Teaching Needs - Joint Replacement Disciplines: Residential 09/12/2019 Active 1 goal linked to scheduled/documented intervention 6 goal interventions scheduled/documented in this visit Pain Management Disciplines: Residential, Physical Therapy, Occupational Therapy, Speech Therapy, Home Health Aide, Medical Social Work, Spiritual Care, Art Therapy, Massage Therapy, Registered Dietitian, Student - Medical Social Work 09/12/2019 Active 1 goal linked to scheduled/documented intervention 1 goal intervention scheduled/documented in this visit Prevention of Skin Breakdown - Pressure Ulcer Disciplines: Residential, Physical Therapy, Occupational Therapy, Speech Therapy, Home Health Aide, Medical Social Work, Spiritual Care, Art Therapy, Massage Therapy, Registered Dietitian, Student - Medical Social Work 09/12/2019 Active 1 goal linked to scheduled/documented intervention 1 goal intervention scheduled/documented in this visit Risk of Falls Disciplines: Residential, Physical Therapy, Occupational Therapy, Speech Therapy, Home Health Aide, Medical Social Work, Spiritual Care, Art Therapy, Massage Therapy, Registered Dietitian, Student - Medical Social Work 09/12/2019 Active 1 goal linked to scheduled/documented intervention 1 goal intervention scheduled/documented in this visit Skilled Assessment Disciplines: Residential 09/12/2019 Active 1 goal linked to scheduled/documented [...] Goal:Pain management goal Completed Instruct { PATIENT CAREGIVER:[id number]} on medications and alternative strategies to relieve pain. Instruct prevention of pressure ulcers Problem:Prevention of Skin Breakdown - Pressure Ulcer Goal:/[facility] Goal Completed Instruct on fall prevention Problem:Risk of Falls Goal:Balance/Fall risk goal Completed Obtain pulse oximetry Problem:Skilled Assessment Goal:Rehospitalizati on joint replacement goal Completed SN/HEAD OF MARKETING ADOMETRY obtain vital signs Problem:Skilled Assessment Goal:Rehospitalizati on joint replacement goal Completed Teaching - disease process Problem:Skilled Assessment Goal:Rehospitalizati on joint replacement goal Completed Skilled observation and assessment general assessment Problem:Skilled Assessment Goal:Rehospitalizati on joint replacement goal Completed Visit Details Visit Type -[facility] Star t of Care Discipline -Residential Interventions Intervention Associated Problem/Goal Status Variance Visit [...] Assessment Goal:Rehospitalizatio n joint replacement goal Completed SN/HEAD OF MARKETING ADOMETRY obtain vital signs Problem:Skilled Assessment Goal:Rehospitalizatio n [...] ambulating in home with using FWW and OK at all times. Challenged patient with stepping [...] Date Status Goals Interventions Abnormal Findings Disciplines: Residential, Physical Therapy, Occupational Therapy, Speech Therapy, Home Health Aide, Medical Social Work, Spiritual Care, Art Therapy, Massage Therapy, Registered Dietitian, Student - Medical Social Work 09/12/2019 Active 1 goal linked to scheduled/documente d intervention 1 goal intervention scheduled/documented in this visit Bleeding Precautions Disciplines: Residential 09/12/2019 Active - 1 problem intervention scheduled/documented in this visit Code Status Disciplines: Residential, Physical Therapy, Occupational Therapy, Speech Therapy, Home Health Aide, Medical Social Work, Spiritual Care, Art Therapy, Massage Therapy, Registered Dietitian, Student - Medical Social Work 09/12/2019 Active 1 goal linked to scheduled/documente d intervention 1 goal intervention scheduled/documented in this visit Home Medication Management Disciplines: Residential 09/12/2019 Active 1 goal linked to scheduled/documente d intervention 4 goal interventions scheduled/documented in this visit Infection Prevention - Catheter Disciplines: Residential 09/12/2019 Resolved on 09/19/2019 1 goal linked to scheduled/documente d intervention 1 goal intervention scheduled/documented in this visit Learning/Teaching Needs - Catheter Disciplines: Residential 09/12/2019 Resolved on 09/19/2019 1 goal linked to scheduled/documente d intervention 1 goal intervention scheduled/documented in this visit Learning/Teaching Needs - Joint Replacement Disciplines: Residential 09/12/2019 Active 1 goal linked to scheduled/documente d intervention 6 goal interventions scheduled/documented in this visit Pain Management Disciplines: Residential, Physical Therapy, Occupational Therapy, Speech Therapy, Home Health Aide, Medical Social Work, Spiritual Care, Art Therapy, Massage Therapy, Registered Dietitian, Student - Medical Social Work 09/12/2019 Active 1 goal linked to scheduled/documente d intervention 1 goal intervention scheduled/documented in this visit Prevention of Skin Breakdown - Pressure Ulcer Disciplines: Residential, Physical Therapy, Occupational Therapy, Speech Therapy, Home Health Aide, Medical Social Work, Spiritual Care, Art Therapy, Massage Therapy, Registered Dietitian, Student - Medical Social Work 09/12/2019 Active 1 goal linked to scheduled/documente d intervention 1 goal intervention scheduled/documented in this visit Risk of Falls Disciplines: Residential, Physical Therapy, Occupational Therapy, Speech Therapy, Home Health Aide, Medical Social Work, Spiritual Care, Art Therapy, Massage Therapy, Registered Dietitian, Student - Medical Social Work 09/12/2019 Active 1 goal linked to scheduled/documente d intervention 1 goal intervention scheduled/documented in this visit Skilled Assessment Disciplines: Residential 09/12/2019 Active 1 goal linked to scheduled/documente [...] Assessment Goal:Rehospitalizati on joint replacement goal Completed SN/HEAD OF MARKETING ADOMETRY obtain vital signs Problem:Skilled Assessment Goal:Rehospitalizati on joint replacement goal Completed Teaching - disease process Problem:Skilled Assessment Goal:Rehospitalizati on joint replacement goal Completed Skilled observation and assessment general assessment Problem:Skilled Assessment Goal:Rehospitalizati on joint replacement goal Completed Visit Details Visit Type -SN HH OASIS Disc harge Discipline -Residential Problems Problem Start Date Status Goals Interventions Abnormal Findings Disciplines: Residential, Physical Therapy, Occupational Therapy, Speech Therapy, Home Health Aide, Medical Social Work, Spiritual Care, Art Therapy, Massage Therapy, Registered Dietitian, Student - Medical Social Work 09/12/2019 Resolved on 09/25/2019 1 goal linked to scheduled/documente d intervention 1 goal intervention scheduled/documented in this visit Bleeding Precautions Disciplines: Residential 09/12/2019 Resolved on 09/25/2019 1 goal linked to scheduled/documente d intervention 1 problem intervention scheduled/documented in this visit Code Status Disciplines: Residential, Physical Therapy, Occupational Therapy, Speech Therapy, Home Health Aide, Medical Social Work, Spiritual Care, Art Therapy, Massage Therapy, Registered Dietitian, Student - Medical Social Work 09/12/2019 Resolved on 09/25/2019 1 goal linked to scheduled/documente d intervention 1 goal intervention scheduled/documented in this visit Home Medication Management Disciplines: Residential 09/12/2019 Resolved on 09/25/2019 1 goal linked to scheduled/documente d intervention 4 goal interventions scheduled/documented in this visit Learning/Teaching Needs - Joint Replacement Disciplines: Residential 09/12/2019 Resolved on 09/25/2019 1 goal linked to scheduled/documente d intervention 6 goal interventions scheduled/documented in this visit Pain Management Disciplines: Residential, Physical Therapy, Occupational Therapy, Speech Therapy, Home Health Aide, Medical Social Work, Spiritual Care, Art Therapy, Massage Therapy, Registered Dietitian, Student - Medical Social Work 09/12/2019 Resolved on 09/25/2019 1 goal linked to scheduled/documente d intervention 1 goal intervention scheduled/documented in this visit Prevention of Skin Breakdown - Pressure Ulcer Disciplines: Residential, Physical Therapy, Occupational Therapy, Speech Therapy, Home Health Aide, Medical Social Work, Spiritual Care, Art Therapy, Massage Therapy, Registered Dietitian, Student - Medical Social Work 09/12/2019 Resolved on 09/25/2019 1 goal linked to scheduled/documente d intervention 1 goal intervention scheduled/documented in this visit Risk of Falls Disciplines: Residential, Physical Therapy, Occupational Therapy, Speech Therapy, Home Health Aide, Medical Social Work, Spiritual Care, Art Therapy, Massage Therapy, Registered Dietitian, Student - Medical Social Work 09/12/2019 Resolved on 09/25/2019 1 goal linked to scheduled/documente d intervention 1 goal intervention scheduled/documented in this visit Skilled Assessment Disciplines: Residential 09/12/2019 Resolved on 09/25/2019 1 goal linked [...] Pain management goal Pain Management Met No /[facility] Goal Prevention of Skin Breakdown - Pressure [...] Assessment Goal:Rehospitalizati on joint replacement goal Completed SN/HEAD OF MARKETING ADOMETRY obtain vital signs Problem:Skilled Assessment Goal:Rehospitalizati on [...] scheduled/documented in this visit Abnormal Findings Disciplines: Residential, Physical Therapy, Occupational Therapy, Speech Therapy, Home [...] scheduled/documented in this visit Pain Management Disciplines: Residential, Physical Therapy, Occupational Therapy, Speech Therapy, Home Health Aide, Medical Social Work, Spiritual Care, Art Therapy, Massage Therapy, Registered Dietitian, Student - Medical Social Work 09/12/2019 Resolved on 09/25/2019 1 goal linked to scheduled/documente d intervention 1 goal intervention scheduled/documented in this visit Risk of Falls Disciplines: Residential, Physical Therapy, Occupational Therapy, Speech Therapy, Home [...] ambulating in home with using FWW and OK at all times. Challenged patient with stepping [...] Date Status Goals Interventions Abnormal Findings Disciplines: Residential, Physical Therapy, Occupational Therapy, Speech Therapy, Home Health Aide, Medical Social Work, Spiritual Care, Art Therapy, Massage Therapy, Registered Dietitian, Student - Medical Social Work 09/12/2019 Active 1 goal linked to scheduled/documented intervention 1 goal intervention scheduled/documented in this visit Bleeding Precautions Disciplines: Residential 09/12/2019 Active - 1 problem intervention scheduled/documented in this visit Code Status Disciplines: Residential, Physical Therapy, Occupational Therapy, Speech Therapy, Home Health Aide, Medical Social Work, Spiritual Care, Art Therapy, Massage Therapy, Registered Dietitian, Student - Medical Social Work 09/12/2019 Active 1 goal linked to scheduled/documented intervention 1 goal intervention scheduled/documented in this visit Home Medication Management Disciplines: Residential 09/12/2019 Active 1 goal linked to scheduled/documented intervention 4 goal interventions scheduled/documented in this visit Learning/Teaching Needs - Joint Replacement Disciplines: Residential 09/12/2019 Active 1 goal linked to scheduled/documented intervention 6 goal interventions scheduled/documented in this visit Pain Management Disciplines: Residential, Physical Therapy, Occupational Therapy, Speech Therapy, Home Health Aide, Medical Social Work, Spiritual Care, Art Therapy, Massage Therapy, Registered Dietitian, Student - Medical Social Work 09/12/2019 Active 1 goal linked to scheduled/documented intervention 1 goal intervention scheduled/documented in this visit Prevention of Skin Breakdown - Pressure Ulcer Disciplines: Residential, Physical Therapy, Occupational Therapy, Speech Therapy, Home Health Aide, Medical Social Work, Spiritual Care, Art Therapy, Massage Therapy, Registered Dietitian, Student - Medical Social Work 09/12/2019 Active 1 goal linked to scheduled/documented intervention 1 goal intervention scheduled/documented in this visit Risk of Falls Disciplines: Residential, Physical Therapy, Occupational Therapy, Speech Therapy, Home Health Aide, Medical Social Work, Spiritual Care, Art Therapy, Massage Therapy, Registered Dietitian, Student - Medical Social Work 09/12/2019 Active 1 goal linked to scheduled/documented intervention 1 goal intervention scheduled/documented in this visit Skilled Assessment Disciplines: Residential 09/12/2019 Active 1 goal linked to scheduled/documented [...] driving, independent with ADL/ IADLs, volunteers at [facility] 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 He has seen his cover maker, who has given him the all clear [...] Doshi, PT - 09/10/2019 5:23 PM Jaci Loving LISW - 09/10/2019 4:30 PM EST Consult Notes [...] roles. The patient's home setup is a call worker and family/caregiver support is a call worker for return to prior level of function. The patient's education level is a call worker, compliance is a call worker and awareness of own capacity and performance is a call worker to return to prior level of function. [...] distracted environment Hearing Status: WFL Social Interaction: WF UE Assessment B UE AROM limited in [...] via walker Home Equipment: Wheeled Walker, Cane, Territory Business Manager Additional Comments: Been using walker for past few nights to practice before sx, otherwise indep with no AD Prior Level of Function Level of [place]: Independent with ADLs and functional transfers Lives With: Spouse Receives Help From: Family ADL Assistance: Independent Comments: Spouse performs the homemaking and they hire out yard work. Ambulates without a device. Past Medical History: Diagnosis Date CAD (coronary artery disease) Chest pain Complication of anesthesia slow to wake up GERD (gastroesophageal reflux disease) History of cardiac cath CIRCLE (hard of hearing) Hyperlipidemia Hypertension HANNAH (juvenile [...] able to doff the L sock with attending radiologist, don same with sock aide, with extra time. Light min A to don shoe; dependent for tying. He was able to doff/don items on the R foot without use of AE. Patient educated on use of attending radiologist for donning underwear/pants with attending radiologist for greater ease on the L; was then able to step into the R while seated. Patient pleased with results of AE use. Request for attending radiologist and sock aid faxed to [facility] and [...] sit EOB Transfers Sit to Stand: Min Clothes Wringer: Wheeled walker Skilled Intervention: Vc for hand [...] AD Prior Level of Function Level of [place]: Independent with ADLs and functional transfers Lives With: Spouse Receives Help From: Family Comments: takes care of all housework Past Medical History: Diagnosis Date CAD (coronary artery disease) Chest pain Complication of anesthesia slow to wake up GERD (gastroesophageal reflux disease) History of cardiac cath CIRCLE (hard of hearing) Hyperlipidemia Hypertension HANNAH (juvenile [...] return home at discharge with services from [facility] and a referral was made at that time. Care management fire loss prevention engineer met with the patient today post surgery and confirmed the plan remains for the patient to return home at discharge with services from [facility]. The patient lives in a 2 story home with 5 steps and a handrail on the right to enter. Their bedroom, bathroom, and laundry are on the first floor. The bathroom has a walk-in shower, with grab bars and a seat. The commode is handicap accessible. Notify home health care completed. Patient to return home with [facility] at discharge. LAKIA JiangS Discharge Plan Shared UM/CC and RN Living Arrangements: Spouse/significant other Support Systems: Spouse/significant other Functional Status: Independent Type of Residence: Private residence Prior to Admission Home Care Services: No [facility] Disposition D/C Disposition: Home Health Care Services Related to Current Admission?: Yes Agency/Destination: [facility] Home Care Needs : Home health care Reason for Choice: Patient/Family prefernce documented in this encounter Care Teams (unrecognized sec tion and content) Wheat Farmer Relationship Specialty Start Date End Date Don Barrera MD [address] [place] [address] PCP - General Family Medicine 03/21/16 Vijay Viveros MD Consulting Physician Orthopedic Surgery 09/11/19 Wheat Farmer Relationship Specialty Start Date End Date Don Barrera MD [address] [place] [address] PCP - General Family Medicine 03/21/16 Vijay Viveros MD Consulting Physician Orthopedic Surgery 09/11/19 Wheat Farmer Relationship Specialty Start Date End Date Don Barrera MD [address] [place] [address] PCP - General Family Medicine 03/21/16 Vijay Viveros MD Consulting Physician Orthopedic Surgery 09/11/19 Wheat Farmer Relationship Specialty Start Date End Date [facility] [address] PCP - General Family Medicine 03/21/16 Vijay [facility]os MD [facility] [place] [address] Consulting Physician Orthopedic Surgery 09/11/19 Wheat Farmer Relationship Specialty Start Date End Date Don Barrera MD [address] [place] [address] PCP - General Family Medicine 03/21/16 Vijay Viveros MD [address] [place] [address] Consulting Physician Orthopedic Surgery 09/11/19 Wheat Farmer Relationship Specialty Start Date End Date Don Barrera MD PCP - General Internal Medicine 04/10/13 Wheat Farmer Relationship Specialty Start Date End Date Don Barrera MD [address] [place] [address] PCP - General 06/24/19 Don Barrera MD [address] [place] [address] PCP - MSSP ACO Attributed Provider 10/22/21 Wheat Farmer Relationship Specialty Start Date End Date Don Barrera MD [address] [place] [address] PCP - General 06/24/19 Don Barrera MD [address] [place], [facility] PCP - MSSP ACO Attributed Provider 10/22/21 Wheat Farmer Relationship Specialty Start Date End Date Don Barrera MD [address] [place], [facility] PCP - MSSP ACO Attributed Provider 10/22/21 Don Barrera MD [address] [place] [address] PCP - General Family Medicine 07/22/23 Wheat Farmer Relationship Specialty Start Date End Date Don Barrera MD PCP - General Internal Medicine 04/10/13 Howard Soria OD [address] [place] [place] [address] Optometry 08/29/23 Wheat Farmer Relationship Specialty Start Date End Date Don Barrera MD [address] [place] [address] [facility] Att[facility] Provider 10/22/21 Don Barrera MD [address] [place] [id number] PCP - General Family Medicine 07/22/23 Wheat Farmer Relationship Specialty Start Date End Date Don Barrera MD [address] [place] [id number] PCP - [facility] Attributed Provider 10/22/21 Don Barrera MD [address] [place] [id number] PCP - General Family Medicine 07/22/23 Wheat Farmer Relationship Specialty Start Date End Date Don Barrera MD [address] [place] [phone] PCP - [facility] Attributed Provider 10/22/21 Don Barrera MD [address] [place] [phone] PCP - General Family Medicine 07/22/23 Wheat Farmer Relationship Specialty Start Date End Date Don Barrera MD [address] [place] [phone] PCP - General Family Medicine 03/21/16 Vijay Viveros MD [address] [place] [phone] Consulting Physician Orthopedic Surgery 09/11/19 Wheat Farmer Relationship Specialty Start Date End Date Don Barrera MD [address] [place] [address] PCP - General Family Medicine 03/21/16 Vijay Viveros MD [address] [place] [address] Consulting Physician Orthopedic Surgery 09/11/19 Wheat Farmer Relationship Specialty Start Date End Date Don Barrera MD [address] [place] [address] PCP - MSSP ACO Attributed Provider 10/22/21 Don Barrera MD [address] [place] [address] PCP - General Family Medicine 07/22/23 Wheat Farmer Relationship Specialty Start Date End Date Don Barrera MD [address] [place] [address] PCP - MSSP ACO Attributed Provider 10/22/21 Don Barrera MD [address] [place] [address] PCP - General Family Medicine 07/22/23 Wheat Farmer Relationship Specialty Start Date End Date Don Barrera MD [address] [place] [address] PCP - MSSP ACO Attributed Provider 10/22/21 Don Barrera MD [address] [place] [address] PCP - General Family Medicine 07/22/23 Wheat Farmer Relationship Specialty Start Date End Date Don Barrera MD [address] [place] [address] PCP - MSSP ACO Attributed Provider 10/22/21 Don Barrera MD [address] [place] [address] PCP - General Family Medicine 07/22/23 Wheat Farmer Relationship Specialty Start Date End Date Don Barrera MD [address] [place] [address] PCP - MSSP ACO Attributed Provider 10/22/21 Don Barrera MD [address] [place] [address] PCP - General Family Medicine 07/22/23 Wheat Farmer Relationship Specialty Start Date End Date Don Barrera MD [address] [place] [address] PCP - MSSP ACO Attributed Provider 10/22/21 Don Barrera MD [address] [place] [address] PCP - General Family Medicine 07/22/23 Wheat Farmer Relationship Specialty Start Date End Date Don Barrera MD [address] [place] [address] PCP - MSSP ACO Attributed Provider 10/22/21 Don Barrera MD [address] [place] [address] PCP - General Family Medicine 07/22/23 Wheat Farmer Relationship Specialty Start Date End Date Don Barrera MD [address] [place] [phone] PCP - General Family Medicine 03/21/16 Vijay Viveros MD [address] [place] [phone] Consulting Physician Orthopedic Surgery 09/11/19 Wheat Farmer Relationship Specialty Start Date End Date Don Barrera MD [address] [place], [facility] [phone] PCP - MSSP ACO Attributed Provider 10/22/21 Don Barrera MD [address] [place], [facility] PCP - General Family Medicine 07/22/23 Wheat Farmer Relationship Specialty Start Date End Date Don Barrera MD [address] [place] [phone] PCP - General Family Medicine 03/21/16 Vijay Viveros MD [address] [place] [address] Consulting Physician Orthopedic Surgery 09/11/19 Wheat Farmer Relationship Specialty Start Date End Date Don Barrera MD PCP - General Internal Medicine 04/10/13 Howard Soria OD [address] [place] [address] Optometry 08/29/23 Wheat Farmer Relationship Specialty Start Date End Date Don Barrera MD [address] [facility] [place] [address] PCP - MSSP ACO Attributed Provider 10/22/21 Don Barrera MD [address] [place] [address] PCP - General Family Medicine 07/22/23 Wheat Farmer Relationship Specialty Start Date End Date Don Barrera MD [address] [place] [address], [place] [address] PCP - MSSP ACO Attributed Provider 10/22/21 Don Barrera MD [address] [place] [address] PCP - General Family Medicine 07/17/24 Wheat Farmer Relationship Specialty Start Date End Date Don Barrera MD [address] [place] [address], [place] [address] PCP - MSSP ACO Attributed Provider 10/22/21 Don Barrera MD [address] [place] [address] PCP - General Family Medicine 07/17/24 Wheat Farmer Relationship Specialty Start Date End Date Don Barrera MD [address] [place] [address], [place] [address] PCP - MSSP ACO Attributed Provider 10/22/21 Don Barrera MD [address] [place] [address] PCP - General Family Medicine 07/17/24 Wheat Farmer Relationship Specialty Start Date End Date Don Barrera MD [address] [place] [address] PCP - General Family Medicine 03/21/16 Vijay Viveros MD [address] [place] [phone] Consulting Physician Orthopedic Surgery 09/11/19 Wheat Farmer Relationship Specialty Start Date End Date Don Barrera MD [address] [place] [phone] PCP - MSSP ACO Attributed Provider 10/22/21 Don Barrera MD [address] [place] [phone] PCP - General Family Medicine 07/22/23 Wheat Farmer Relationship Specialty Start Date End Date Don Barrera MD [address] [place] [phone] PCP - MSSP ACO Attributed Provider 10/22/21 Don Barrera MD [address] [place] [phone] PCP - General Family Medicine 07/22/23 Wheat Farmer Relationship Specialty Start Date End Date Don Barrera MD [address] [place] [address] PCP - MSSP ACO Attributed Provider 10/22/21 Don Barrera MD [address] [facility] [address] [place] [address] PCP - General Family Medicine 07/22/23 Wheat Farmer Relationship Specialty Start Date End Date Don Barrera MD [address] [address] PCP - MSSP ACO Attributed Provider 10/22/21 Don Barrera MD [address] [address] PCP - General Family Medicine 07/17/24 Wheat Farmer Relationship Specialty Start Date End Date Don Barrera MD [address] [place] [phone] PCP - General Family Medicine 03/21/16 Vijay Viveros MD [address] [place] [address] Consulting Physician Orthopedic Surgery 09/11/19 Wheat Farmer Relationship Specialty Start Date End Date Don Barrera MD [address] [address] PCP - MSSP ACO Attributed Provider 10/22/21 Don Barrera MD [address] [address] PCP - General Family Medicine 07/17/24 Wheat Farmer Relationship Specialty Start Date End Date Don Barrera MD [address] [address] PCP - MSSP ACO Attributed Provider 10/22/21 Don Barrera MD [address] [address] PCP - General Family Medicine 07/17/24 Wheat Farmer Relationship Specialty Start Date End Date Don Barrera MD [address] [address] PCP - MSSP ACO Attributed Provider 10/22/21 Don Barrera MD [address] [address] PCP - General Family Medicine 07/17/24 Wheat Farmer Relationship Specialty Start Date End Date Don Barrera MD [address] [address] PCP - MSSP ACO Attributed Provider 10/22/21 Don Barrera MD [address] [address] PCP - General Family Medicine 07/17/24 Wheat Farmer Relationship Specialty Start Date End Date Don Barrera MD [address] [address] PCP - MSSP ACO Attributed Provider 10/22/21 Don Barrera MD [address] [address] PCP - General Family Medicine 07/17/24 Team Status: Active Member Role/Relationship Status Dates Dr. Devan Barrera MD Primary Care Provider Active Team Status: Active Member Role/Relationship Status Dates Dr. Devan Barrera MD Primary Care Provider Active Start: May 20, 2025 Dr. Jesus Alberto [place] MD Admit Provider Active Star t: May 20, 2025 Dr. Jesus Ablerto [place] MD Attending Provider Active Start: May 20, 2025 Dr. Jesus Alberto [place] MD Referring Provider Active Start: May 20, 2025 Team Status: Active Member Role/Relationship Status Dates Dr. Devan Barrera MD Primary Care Provider Active Start: May 21, 2025 Dr. Jesus Alberto [place] MD Attending Provider Active Start: May 21, 2025 Dr. Jesus Alberto [place] MD Referring Provider Active Start: May 21, 2025 Team Status: Inactive Member Role/Relationship Status Dates Dr. Devan Barrera MD Primary Care Provider Active Start: May 26, 2025 End: May 26, 2025 Dr. Devan Barrera MD Referring Provider Active Start: May 26, 2025 End: May 26, 2025 Dr. Stan Ferrara DO Attending Provider Active Start: May 26, 2025 End: May 26, 2025 Team Status: Active Member Role/Relationship Status Dates Dr. Devan Barrera MD Primary Care Provider Active Start: May 26, 2025 Dr. Devan Barrera MD Referring Provider Active Start: May 26, 2025 Dr. Stan Ferrara DO Attending Provider Active Start: May 26, 2025 Dr. Stan Ferrara DO Other Provider Active St art: May 26, 2025 Team Status: Active Member Role/Relationship Status Dates Dr. Devan Barrera MD Primary Care Provider Active Start: May 26, 2025 Dr. Jesus Alberto Wiggins MD Attending Provider Active Start: May 26, 2025 Dr. Jesus Alberto Wiggins MD Referring Provider Active Start: May 26, 2025 Team Status: Inactive Member Role/Relationship Status Dates Dr. Devan Barrera MD Primary Care Provider Active Start: May 21, 2025 End: May 21, 2025 Dr. Jesus Alberto Wiggins MD Attending Provider Active Start: May 21, 2025 End: May 21, 2025 Dr. Jesus Alberto Wiggins MD Referring Provider Active Start: May 21, 2025 End: May 21, 2025 Team Status: Inactive Member Role/Relationship Status Dates Dr. Devan Barrera MD Primary Care Provider Active Start: May 26, 2025 End: May 26, 2025 Dr. Jesus Alberto Wiggins MD Attending Provider Active Start: May 26, 2025 End: May 26, 2025 Dr. Jesus Alberto Wiggins MD Referring Provider Active Start: May 26, 2025 End: May 26, 2025 Team Status: Active Member Role/Relationship Status Dates Dr. Devan Barrera MD Primary Care Provider Active Start: June 15, 2025 Dr. Jesus Alberto Wiggins MD Admit Provider Active Star t: June 15, 2025 Dr. Jesus Alberto Wiggins MD Referring Provider Active Start: June 15, 2025 Dr. Jesus Alberto Wiggins MD Other Provider Active Star t: June 15, 2025 Dr. Stan Ferrara DO Attending Provider Active Start: June 15, 2025 Team Status: Inactive Member Role/Relationship Status Dates Dr. Devan Barrera MD Primary Care Provider Active Start: June 17, 2025 End: June 17, 2025 Dr. Devan Barrera MD Referring Provider Active Start: June 17, 2025 End: June 17, 2025 Dr. Stan Ferrara DO Attending Provider Active Start: June 17, 2025 End: June 17, 2025 Team Status: Active Member Role/Relationship Status Dates Dr. Devan Barrera MD Primary Care Provider Active Start: June 17, 2025 Dr. Devan Barrera MD Referring Provider Active Start: June 17, 2025 Dr. Stan Ferrara DO Attending Provider Active Start: June 17, 2025 Dr. Stan Ferrara DO Other Provider Active St art: June 17, 2025 Wheat Farmer Relationship Specialty Start Date End Date Don Barrera MD [address] [address] PCP - [facility] Attributed Provider 10/22/21 Don Barrera MD [address] [address] PCP - General Family Medicine 07/17/24 Daryl Dyson Code InspectorGuide Rail Cleaner 07/17/25 Team Status: Active Member Role/Relationship Status Dates Dr. Devan Barrera MD Primary care physician Active Team Status: Inactive Member Role/Relationship Status Dates Dr. Devan Barrera MD Primary care physician Active Start: May 20, 2025 End: July 16, 2025 Dr. Jesus Alberto Wiggins MD Admitting physician Active Start: May 20, 2025 End: July 16, 2025 Dr. Jesus Alberto Wiggins MD Attending physician Active Start: May 20, 2025 End: July 16, 2025 Dr. Jesus Alberto Wiggins MD Referring Provider Active Start: May 20, 2025 End: July 16, 2025 Team Status: Inactive Member Role/Relationship Status Dates Dr. Devan Barrera MD Primary care physician Active Start: May 21, 2025 End: May 21, 2025 Dr. Jesus Alberto Wiggins MD Attending physician Active Start: May 21, 2025 End: May 21, 2025 Dr. Jesus Alberto Wiggins MD Referring Provider Active Start: May 21, 2025 End: May 21, 2025 Team Status: Inactive Member Role/Relationship Status Dates Dr. Devan Barrera MD Primary care physician Active Start: May 26, 2025 End: May 26, 2025 Dr. Devan Barrera MD Referring Provider Active Start: May 26, 2025 End: May 26, 2025 Dr. Stan Ferrara DO Attending physician Active Start: May 26, 2025 End: May 26, 2025 Team Status: Active Member Role/Relationship Status Dates Dr. Devan Barrera MD Primary care physician Active Start: May 26, 2025 Dr. Devan Barrera MD Referring Provider Active Start: May 26, 2025 Dr. Stan Ferrara DO Attending physician Active Start: May 26, 2025 Dr. Stan Ferrara DO Nurse Practitioner Active Start: May 26, 2025 Team Status: Inactive Member Role/Relationship Status Dates Dr. Devan Barrera MD Primary care physician Active Start: May 26, 2025 End: May 26, 2025 Dr. Jesus Alberto Wiggins MD Attending physician Active Start: May 26, 2025 End: May 26, 2025 Dr. Jesus Alberto Wiggins MD Referring Provider Active Start: May 26, 2025 End: May 26, 2025 Team Status: Active Member Role/Relationship Status Dates Dr. Devan Barrera MD Primary care physician Active Start: June 15, 2025 Dr. Jesus Alberto Wiggins MD Admitting physician Active Start: June 15, 2025 Dr. Jesus Alberto Wiggins MD Referring Provider Active Start: June 15, 2025 Dr. Jesus Alberto Wiggins MD Nurse Practitioner Active Start: June 15, 2025 Dr. Stan Ferrara DO Attending physician Active Start: June 15, 2025 Team Status: Active Member Role/Relationship Status Dates Dr. Devan Barrera MD Primary care physician Active Start: June 17, 2025 Dr. Heather Diaz MD Attending physician Active Start: June 17, 2025 Dr. Jesus Alberto Wiggins MD Referring Provider Active Start: June 17, 2025 Team Status: Inactive Member Role/Relationship Status Dates Dr. Devan Barrera MD Primary care physician Active Start: June 17, 2025 End: June 17, 2025 Dr. Devan Barrera MD Referring Provider Active Start: June 17, 2025 End: June 17, 2025 Dr. Stan Ferrara DO Attending physician Active Start: June 17, 2025 End: June 17, 2025 Team Status: Active Member Role/Relationship Status Dates Dr. Devan Barrera MD Primary care physician Active Start: June 17, 2025 Dr. Devan Barrera MD Referring Provider Active Start: June 17, 2025 Dr. Stan Ferrara DO Attending physician Active Start: June 17, 2025 Dr. Stan Ferrara DO Nurse Practitioner Active Start: June 17, 2025 Team Status: Inactive Member Role/Relationship Status Dates Dr. Devan Barrera MD Primary care physician Active Start: July 14, 2025 End: July 14, 2025 Dr. Jesus Alberto Wiggins MD Attending physician Active Start: July 14, 2025 End: July 14, 2025 Dr. Jesus Alberto Wiggins MD Referring Provider Active Start: July 14, 2025 End: July 14, 2025 Wheat Farmer Relationship Specialty Start Date End Date Don Barrera MD [address] [address] PCP - [facility] Attributed Provider 10/22/21 Don Barrera MD [address] [address] PCP - General Family Medicine 07/17/24 Daryl Dyson Code InspectorGuide Rail Cleaner 07/17/25 Wheat Farmer Relationship Specialty Start Date End Date Don Barrera MD [address] [address] [place] [facility] Attributed Provider 10/22/21 Don Barrera MD [address] [address] PCP - General Family Medicine 07/17/24 Daryl Dyson Code InspectorGuide Rail Cleaner 07/17/25 Wheat Farmer Relationship Specialty Start Date End Date Don Barrera MD [address] [address] PCP - [facility] Attributed Provider 10/22/21 Don Barrera MD [address] [address] PCP - General Family Medicine 07/17/24 Jemima Dysonsh Code InspectorGuide Rail Cleaner 07/17/25 08/05/25 <item> Privacy Markings (unrecogniz ed section and [...] or prosecute any alcohol or drug abuse patient.[facility] the event this information is protected by the Federal Confidentiality of Alcohol and Drug Abuse Patient Records regulations: The Federal rules restrict any use of the information to criminally investigate or prosecute any alcohol or drug abuse patient.[facility] the event this information is protected by the Federal Confidentiality of Alcohol and Drug Abuse Patient Records regulations: The Federal rules restrict any use of the information to criminally investigate or prosecute any alcohol or drug abuse patient.[facility] Scheduled Active and Recently Administ ered Medications (unrecognized section and content) Medication Order 07/21/2023 07/22/2023 07/23/2023 meclizine (Antivert) tablet 25 mg (COMPLETED) 25 mg, oral, Once, On 07/22/23 at 2235, For 1 dose 2256 (Given - Provider: Fatou Landeros, ANNA) sodium chloride 0.9 % bolus 500 mL (COMPLETED) 500 mL, intravenous, at 500 mL/hr, Administer over 1 Hours, Once, On 07/22/23 at 2235, For 1 dose 2258 (New Bag - Provider: Fatou Landeros RN) 0012 (Stopped - Provider: Fatou Landeros RN) [...] 11/15/23 at 1630, For 1 dose 164 (Given - Provid er: Jaci Soto RN) ondansetron (Zofran) injection 4 mg 4 mg, intravenous, Once, On Mesha 11/15/23 at 1630, For 1 dose, When administering via IV Push, administer over 3-5 minutes. 1630 (Not Given - Pr ovider: Tess oTmpkins RN - Reason: Patient/family refused) sodium chloride [...] dose, Apply to: right hand skin avulsions 171 (Given - Provid er: Janki Maxwell RN) HYDROmorphone (Dilaudid) injection 0.5 mg (COMPLETED) 0.5 mg, intravenous, Once, On 05/10/25 at 1935, For 1 dose 1999 (Given - Provid er: Iliana Chan, ANNA) iohexol (OMNIPaque) 350 mg iodine/mL solution 95 mL (COMPLETED) 95 mL, intravenous, Once in imaging, Starting on 05/10/25 at 1506, For 1 dose 150 (Given - Provid er: Eliceo Christopher, RT - Comment: 3.5 mL/s) lidocaine-epinephrine (Xylocaine W/EPI) 1 %-1:100,000 injection 20 mL (COMPLETED) 20 mL, infiltration, Once, On 05/10/25 at 1405, For 1 dose 1731 (Given - Provid er: Iliana Chan RN - Comment: administered by PA) morphine injection 2 mg (COMPLETED) 2 mg, intravenous, Once, On 05/10/25 at 1705, For 1 dose 1710 (Given - Provid er: Janki Maxwell RN) ondansetron (Zofran) injection 4 mg (COMPLETED) 4 mg, intravenous, Once, On 05/10/25 at 1705, For 1 dose, When administering via IV Push, administer over 3-5 minutes. 1710 (Given - Provid er: Janki Maxwell RN) [...] Provider: Juana Mclean RN - Reason: Patient/family refused)09 (Given - Provider: Yusuf Mcarthur, ANNA)155 (Not Given - Provider: Yusuf Mcarthur, RN - Reason: Other)2056 (Given - Provider: Juana Mclean RN) 021 (Not Given - Provider: Juana Mclean RN [...] 1021 (Given - Provider: Mack Mckinley, ANNA) cyanocobalamin (Vitamin B-12) tablet 1,000 mcg 1,000 mcg, nasoduodenal tube, Daily, First dose (after last modification) on 05/16/25 at 0900 0910 (Given - Provider: Yusuf Mcarthur RN) 0923 (Given - Provider: Ysuuf Mcarthur RN) 1021 (Given - Provider: Mack [...] Mclean RN) 922 (Given - Provider: Yusuf Mcarthur, RN)2132 (Given - Provider: Doyle Greene, ANNA) 102 (Given - Provider: Mack Mckinley RN)2100 (Due) pantoprazole (ProtoNix) EC tablet 40 mg [...] Provider: Yusuf Mcarthur RN - Reason: Contraindicated) 09 (Not Given - Provider: Yusuf Mcarthur RN - Reason: Contraindicated) 102 (Not Given - Provider: Mack Mckinley RN - Reason: Other - Comment: Mx BMs in last 24 hours) pravastatin (Pravachol) tablet 40 mg 40 mg, nasogastric tube, Nightly, First dose (after last modification) on 05/16/25 at 2099 2056 (Given - Provider: Juana Mclean RN) 2132 (Given - Provider: Doyle Greene [...] line, tube placement and maintenance, Starting on 05/15/25 at 1321, For 1 dose, Apply to [...] via IV Push, administer over 3-5 minutes. Scheduled Medication Order 08/07/2025 08/08/2025 08/09/2025 acetaminophen (Tylenol) tablet 975 mg 975 mg, oral, Every 8 hours, First dose on Sun08/04/25 at 2215, If ordered PRN for pain, nurse is permitted to administer this medication for higher pain scores based on patient preference? Yes 0647 (Given - Provider: Chary Caban RN)1515 (Given - Provider: Beatriz Gallo RN)2155 (Given - Provider: Екатерина Barrera, ANNA) 0614 (Given - Provider: Rigoberto Mathews RN)1526 (Given - Provider: Beatriz Gallo RN)2135 (Given - Provider: Екатерина Barrera RN) 0800 (Not Given - Provider: Kodi Nunes LPN - Reason: Patient/family refused)1500 (Due - Provider: Tracy Cruz, Ok)2300 (Due - Provider: Tracy Cruz, OlayinkaD) cholecalciferol (Vitamin D-3) tablet 125 mcg 125 mcg, oral, Daily, First dose on Sun08/05/25 at 0900 0950 (Given - Provider: Beatriz Gallo RN) 0838 (Given - Provider: Beatriz Gallo RN) 0819 (Given - Provider: Kodi Nunes LPN) enoxaparin (Lovenox) syringe 30 mg 30 mg, subcutaneous, Every 12 hours, First dose on Sun08/07/25 at 0700 0647 (Given - Provider: Chary Caban RN)1858 (Given - Provider: Beatriz Gallo RN) 0614 (Given - Provider: Rigoberto Mathews RN)185 (Given - Provider: Beatriz Gallo RN) 0848 (Given - Provider: Kodi Nunes LPN - Comment: due to plan of care)1900 (Due - Provider: Tracy Cruz, Ok) escitalopram (Lexapro) tablet 5 mg 5 mg, oral, Daily, First dose on Sun08/05/25 at 0900 0950 (Given - Provider: Beatriz Gallo RN) 0838 (Given - Provider: Beatriz Gallo RN) 0818 (Given - Provider: Kodi Nunes LPN) folic acid (Folvite) tablet 1 mg 1 mg, oral, Daily, First dose on Sun08/05/25 at 0900 0951 (Given - Provider: Beatriz Gallo RN) 0838 (Given - Provider: Beatriz Gallo RN) 0818 (Given - Provider: Kodi Nunes LPN) hydrALAZINE (Apresoline) injection 5 mg (COMPLETED) 5 mg, intravenous, Once, On Sun08/07/25 at 0300, For 1 dose 0302 (Given - Provider: Chary Caban RN) levETIRAcetam (Keppra) tablet 500 mg 500 mg, oral, 2 times daily, First dose on Sun08/05/25 at 2100 0951 (Given - Provider: Beatriz Gallo RN)2156 (Given - Provider: Екатерина Barrera RN) 0838 (Given - Provider: Beatriz Gallo RN)2136 (Given - Provider: Екатерина Barrera RN) 0819 (Given - Provider: Kodi Nunes LPN)2100 (Due) lisinopril tablet 5 mg 5 mg, oral, Daily, First dose on Sun08/07/25 at 1230 1254 (Given - Provider: Beatriz Gallo RN) 0838 (Given - Provider: Beatriz Gallo RN) 0818 (Given - Provider: Kodi Nunes LPN) metoprolol tartrate (Lopressor) tablet 25 mg 25 mg, oral, 2 times daily, First dose on Sun08/04/25 at 2215, Hold for HR less 65 or SBP less than 110 1131 (Not Given - Provider: Beatriz Gallo RN - Reason: Other - Comment: Held per )2154 (Given - Provider: Екатерина Barrera RN) 08 (Given - Provider: Beatriz Gallo RN)2134 (Given - Provider: Екатерина Barrera RN) 08 (Given - Provider: Kodi Nunes LPN)2099 (Due) emcyknqn-fydibtfsm-[id number] METHasone (Maxitrol) 3.5mg/mL-10,000 unit/mL-0.1 % ophthalmic suspension 1 drop 1 drop, Right Eye, 2 times daily, First dose on Sun08/09/25 at 1400, For 7 days 1400 (Due)2099 (Due) pantoprazole (ProtoNix) EC tablet 40 mg 40 mg, oral, Nightly, First dose on Sun08/04/25 at 2215, Do not crush, chew, or split. 2155 (Given - Provider: Екатерина Barrera RN) 2134 (Not Given - Provider: Екатерина Barrera RN - Reason: Other - Comment: nursing judgement: pt coulod not safely swallow oral tab) 2099 (Due) polyethylene glycol (Glycolax, Miralax) packet 17 g 17 g, oral, Daily, First dose on Sun08/05/25 at 0900, Bowel Regimen - for prevention of constipation. 0951 (Given - Provider: Beatriz Gallo RN) 0930 (Not Given - Provider: Beatriz Gallo RN - Reason: Patient/family refused - Comment: several eposides of bowel movements) 0807 (Not Given - Provider: Kodi Nunes LPN - Reason: Patient/family refused - Comment: Pt had loose BM today) sennosides-docusate sodium (Griselda-Colace) 8.6-50 mg per tablet 2 tablet 2 tablet, oral, 2 times daily, First dose on Sun08/04/25 at 2215, Bowel Regimen - for prevention of constipation Hold for loose stools 0950 (Given - Provider: Beatriz Gallo RN)2155 (Given - Provider: Екатерина Barrera RN) 0931 (Not Given - Provider: Beatriz Gallo RN - Reason: Patient/family refused - Comment: several eposides of bowel movements)2203 (Not Given - Provider: Rigoberto Mathews RN - Reason: Order parameters not met) 0807 (Not Given - Provider: Kodi Nunes LPN - Reason: Patient/family refused - Comment: Pt had loose BM today)2100 (Due) PRN Medication Order 08/07/2025 08/08/2025 08/09/2025 oxygen (O2) therapy 1 Dose, inhalation, Continuous - O2/gases, oxygen, Starting on Sun08/04/25 at 2145, Device: Nasal Cannula, Rate in liters per minute: 2 LPM, Keep O2 Sat Above: 92% FOR RECORDS PERTAINING TO PATIENTS WHO ARE [...] BE BASED ON THE PRIMARY CLINICAL RECORDS. [employer]. provides no warranty or guarantee of the accuracy or completeness of information in this document.
[2025-08-09 16:19] VITALS: BP 163/81; PULSE 97; RESP 18; TEMP 36.1; O2SAT 98; BMI 22.1; BMI 22.2
--- NOTE | 2025-08-09 18:40 | NURSING ---
Addendum entered by Karissa Gallo 08/09/25 18:49: CT showed no acute findings. Dr. Wiggins made aware. Original Note: Patient arrives to unit and is A/O X3 but very slow to find words and states he feels confused since the last hour and states this is new. He has eyes dilated at and pupils were 8mm and right was reactive to light but left was not and pupils remained unequal. Dr. Wiggins made aware and order for head CT. Family arrives and is made aware and they also state this dysphasia is new today.
--- NOTE | 2025-08-09 20:43 | HP.PCM_ITS ---
HPI - General General Date of Admission: 08/09/25 Date of Service: 08/10/25 Chief Complaint: Here for rehabilitation. HPI Narrative FAWN YEPEZ, is a 89 M who presents with followin08/04/2025 Admit to [facility] from OSH for neurosurgery. Cameron weak, legs gave out, fell. CT head right parafalcine SDH. CT C/A/P showed multiple healing fractures from previous fall. AAA 4.9cm. Repeat CT head, NPO, pain control, Keppra. 08/04/2025 Neurosurgery recommended SBP < 160. Restart Aspirin 08/07/2025. Keppra x 7 days seizure prophylaxis. No surgery recommended per neurosurgery. 08/05/2025 PT/OT/CM. 08/06/2025 PT/OTCM SNF. 08/07/2025 SNF recommended. 08/08/2025 Pre-CERT SNF pending. 08/09/2025 Admit to TCU with debility, here for rehabilitation, strengthening, prior to discharge home with . [facility] Medical History (Updated 08/09/25 @ 20:[address] Jesus Alberto Wiggins MD) SDH (subdural hematoma) Former smoker Wears hearing aid Easy bruising Cardiology follow-up encounter Dysphagia Hyperlipidemia Depression BPH (benign prostatic hyperplasia) TIA (transient ischemic attack) Coronary artery disease Carotid artery stenosis Osteoarthritis Essential (primary) hypertension GERD (gastroesophageal reflux disease) Sacral fracture Bilateral pubic rami fractures SAH (subarachnoid hemorrhage) Orbital roof fracture Orbital floor fracture Debility Home Medications ?Medication ?Instructions ?Recorded ?Last Taken ?Type amitriptyline 10 mg tablet 10 mg PO QHS Mood 05/20/25 Unknown History Held on 08/09/25. Instructions: Hold until your Doctor or provider tells you to start aspirin 81 mg tablet 81 mg PO DAILY Heart 5 Unknown History Held on 08/09/25. Instructions: Hold until your Doctor or provider tells you to start benazepril 40 mg tablet 40 mg feeding tube DAILY BP 05/20/25 06/16/25 History Held on 08/09/25. Instructions: Hold until your Doctor or provider tells you to start cyanocobalamin (vitamin B-12) 1,000 mcg PO DAILY Suppl ement 05/20/25 05/20/25 10:25 History 1,000 mcg capsule escitalopram oxalate 5 mg tablet 5 mg PO DAILY Mood 06/17/25 History omeprazole 40 mg capsule,delayed 40 mg PO DAILY GERD 0 05/20/25 Unknown History release vitamins A,C,Y-hjhb-jzlvyw 4,296 1 cap PO DAILY Eye Vi tamin 05/20/25 Unknown History mcg-226 mg-90 mg capsule (Healthy Eyes SuperVision) menthol 0.44 %-zinc oxide 20.6 % 1 applic topical BID 05/25/25 Unknown History topical ointment (CalaSoothe) cholecalciferol (vitamin D3) 125 125 mcg PO DAILY Supp lement #0 07/10/25 08/09/25 08:20 Rx mcg (5,000 unit) capsule caps cholestyramine (with sugar) 4 gram 1 ea PO BIDAC 30 da ys #60 ea 07/10/25 Unknown Rx powder for susp in a packet doxazosin 4 mg tablet 4 mg PO QHS BPH 30 days #30 tabs 07/10/25 Unknown Rx Held on 08/09/25. Instructions: Hold until your Doctor or provider tells you to start folic acid 1 mg tablet 2 mg (2 x 1 mg) PO DAILY 08/09/25 08:20 Rx Suppplement #0 tabs methotrexate sodium 2.5 mg tablet 20 mg (8 x 2.5 mg) P O Q7D 07/10/25 Unknown Rx Held on 08/09/25. Arthritis #0 tabs Instructions: Hold until your Doctor or provider tells you to start metoprolol tartrate 25 mg tablet 25 mg PO BID BP #0 ta bs 07/10/25 08/09/25 08:20 Rx pantoprazole 40 mg tablet,delayed 40 mg PO DAILY 30 da ys #30 tabs 07/10/25 Unknown Rx release pravastatin 40 mg tablet 40 mg PO QHS Cholesterol #0 tabs 07/10/25 Unknown Rx acetaminophen 500 mg tablet 975 mg PO Q8 Pain 08/09/25 08/08/25 History levetiracetam 500 mg tablet 500 mg PO BID Seizure 07/2208/09/25 08:20 History (Keppra) lisinopril 5 mg tablet 5 mg PO DAILY BP 08/09/25 08:20 History abfontcn-lczoslrbh-whpkmiwl 3.5 1 drp RIGHT EYE Q12H A ntibiotic 08/09/25 Unknown History mg/mL-10,000 unit/mL-0.1% eye drops (Maxitrol) sennosides 8.6 mg-docusate sodium 2 tab-cap PO BID Con stipation 08/09/25 08/07/25 History 50 mg tablet (Docuzen) Allergy/AdvReac Type Severity Reaction Status Date / Time No Known Allergies Allergy Verified 06/17/25 14:33 Family History Mother Hypertension Hyperlipidemia, unspecified Osteoarthritis Hearing loss Vision loss Father Heart disease Pneumonia CVA (cerebral vascular accident) Hearing loss Suicide attempt Surgical History History of wisdom tooth extraction History of vasectomy History of tonsillectomy and adenoidectomy History of total hip arthroplasty History of shoulder surgery History of hernia repair History of colonoscopy History of circumcision History of cataract surgery History of cardiac catheterization Social History household members: spouse Smoking Status: Former smoker alcohol intake: never substance use type: does not use ROS Constitutional Constitutional: Reports weakness; Denies chills, fever(s) or weight gain ENT HEENT: Denies headache(s), nasal congestion or nasal discharge Cardiovascular Cardiovascular: Denies chest pain or palpitations Respiratory/Chest Respiratory/Chest: Denies cough, excessive phlegm production or shortness of breath with exertion Gastrointestinal Gastrointestinal: Denies abdominal pain, nausea or vomiting Genitourinary Genitourinary: Denies dysuria Musculoskeletal Musculoskeletal: Denies joint pain or joint swelling Integumentary Integumentary: Denies rash or wounds Neurologic Neurologic: Denies focal weakness, numbness or tingling Psychiatric Psychiatric: Denies anxiety, auditory hallucinations, depression, homicidal ideation or suicidal ideation Vital Signs Vital Signs Vital Signs: 08/09/25 16:19 08/09/25 16:19 Temperature 97.0 F L Temperature Source Oral Pulse Rate 97 Pulse Rhythm Regular Pulse Strength Normal (2+) Respiratory Rate 18 Respiratory Effort Normal Non-Labored Respiratory Depth Normal Respiratory Pattern Normal Blood Pressure 163/81 H Blood Pressure Mean 108 Blood Pressure Source Monitor Blood Pressure Position Semi-Fowlers Blood Pressure Location Right Arm Pulse Ox 98 Oxygen Delivery Method Room Air Room Air Weight Weight: 62.46 kg Body Mass Index (BMI) 22.2 Physical Exam Const alert General Appearance: cooperative HEENT normocephalic Eyes PERRL and EOMs intact bilaterally Neck supple, no JVD and no carotid bruits Resp normal respiratory effort, normal air movement and clear to auscultation bilaterally Cardio regular rate and regular rhythm GI normal to inspection, nondistended, normoactive bowel sounds, non-tender and non-distended Extremity normal capillary refill General Extremity: Negative for edema Skin no rashes or lesions noted General Skin Exam: no breakdown Neuro moves all extremities Psych affect normal Appearance: appropriate Assessment & Plan Assessment/Plan (1) Debility: (2) Fall: (3) SDH (subdural hematoma): (4) AAA (abdominal aortic aneurysm): (5) Essential (primary) hypertension: (6) Coronary artery disease: (7) Vitamin D deficiency: (8) Vitamin B12 deficiency: (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 * Debility - PT/OT. * Pain - Tylenol 1000mg q8. * Bowel - senna/colace 2 tablets bid. * Adult immunization - Administer pneumonia vaccine, covid vaccine, flu vaccine as appropriate. * DVT prophylaxis - Hold, SDH. * SDH - No surgery recommended. * Expressive aphasia - Resident had expressive aphasia upon arrival, CT head without contrast showed no acute changes, monitor. * Vitamin D deficiency - Vitamin D 125mcg daily. * Folate deficiency - Folic acid 2mg daily. * Seizure prophylaxis - Keppra 500mg po bid thru 08/11/2025. * Skin irritation - Calmoseptine topical bid. * Hypertension - Metoprolol 25mg bid. * Conjunctivitis - Maxitrol 1gtt OD q12 thru 08/16/2025. * GERD - Pantoprazole 40mg daily. * Hyperlipidemia - Pravastatin 40mg qhs. The following psychotropic medication was present on admission: Escitalopram 5mg daily. Psychotropic medication therapy is indicated for a diagnosis of: Major Depression. Based on my clinical evaluation, continuation of the medication is necessary at this time. Gradual dose reduction plan (select one): ____ GDR will be attempted. Will monitor patient symptoms and behaviors in response to GDR. __x__ GRD contraindicated. Reason contraindicated: stable chronic senior care use.
[2025-08-09 22:08] VITALS: BP 173/79; PULSE 72
[2025-08-09] MEDS: Neomycin/Polymyxin/Dexameth 5ML OPTH.BTL 1 DRP RIGHT EYE (22:09)
[2025-08-10 07:33] LABS: Hematocrit 39.6 % (40-54); Hemoglobin 13.3 g/dL (13.0-16.5); Immature Granulocytes Count 0.020 X10^3/uL (0.0-0.0); Mean Corp Hgb Conc 33.6 g/dL (32-36); Mean Corpuscular Volume 92.5 fL (80-94); Mean Platelet Vol. 9.3 fl (6.2-12.0); NRBC Flagged by Analyzer 0 % (0-5); Platelet Count 247 K/mm3 (150-450); RBC Distribution Width CV 13.0 % (11.6-14.6); RBC Distribution Width SD 43.8 fl (35.1-43.9); Red Blood Count 4.28 M/mm3 (4.6-6.2); White Blood Count 6.7 K/mm3 (4.4-11.0)
[2025-08-10 08:13] LABS: Anion Gap 10 (5-15); BUN 11 mg/dL (4-19); BUN/Creat Ratio 15.4 RATIO (10-20); Calcium,Total 9.1 mg/dL (7.6-11.0); Carbon Dioxide 24.0 mmol/L (21.0-32.0); Chloride 103 mmol/L (98-108); Estimated Creatinine Clearance 55.30 ml/min (50-250); Glucose 97 mg/dL (70-99); Potassium 4.3 mmol/L (3.3-5.1)
[2025-08-10 08:48] VITALS: BP 137/68; PULSE 73
[2025-08-10] MEDS: Cholecalciferol (Vit D3) 125 MCG CAPSULE (5,000 UNITS) PO (08:50)
[2025-08-10] MEDS: Neomycin/Polymyxin/Dexameth 5ML OPTH.BTL 1 DRP RIGHT EYE ×2 (08:50→22:06)
[2025-08-10 09:00] VITALS: BP 137/68; PULSE 73; RESP 16; TEMP 36.7; O2SAT 93
[2025-08-10 10:00] VITALS: PULSE 70; RESP 16; O2SAT 93
[2025-08-10] MEDS: Tuberculin,Purif.prot.deriv. 50 TU/ML Vial 0.1 ML ID (10:06)
--- NOTE | 2025-08-10 10:33 | NURSING ---
Maintenance Inspector Note; Activity Asset: Peterson Tenorio is independent in his choice of daily activities. He has returned after a fall for more therapy. He continues t use his tablet and smartphone independently. He reads, has family visits and welcomes both the therapy dog and desktop architect. Staff will remind him of weekly activities and respect his right to say no.
--- NOTE | 2025-08-10 11:03 | PHA.CONS_ITS ---
Documented by User: Trung Cook 08/10/25 11:19 TCU RX Drug Regimen Review Subjective/Objective Subjective/Objective Subjective: 89 year old male with below past medical history hospitalized for fall, closed head injury, right parafalcine SDH, no surgery recommended, admitted to TCU with debility, here for rehabilitation, strengthening, prior to discharge home with . Objective: Allergies No Known Allergies Allergy (Verified 06/17/25 14:33) Current Medications Generic Name Dose Route Start Last Admin Trade Name Freq PRN Reason Stop Dose Admin Acetaminophen 1,000 mg 08/09/25 22:00 08/10/25 05:48 Acetaminophen 500 Mg Tablet PO 1,000 mg Q8 KIKA Administration Calamine/Phenol 1 applic 08/09/25 22:00 08/10/25 08:47 Menthol/Lanolin/Calamine/Znox 113 Gm Tube TOPICAL 1 applic BID KIKA Administration Protocol Cholecalciferol 125 mcg 08/10/25 10:00 08/10/25 08:50 Cholecalciferol (Vit D3) 125 Mcg Capsule (5,000 Units) PO 125 mcg DAILY KIKA Administration Escitalopram Oxalate 5 mg 08/10/25 10:00 08/10/25 08:48 Escitalopram Oxalate 10 Mg Tablet PO 5 mg DAILY KIKA Administration Folic Acid 2 mg 08/10/25 08:00 08/10/25 08:47 Folic Acid 1 Mg Tablet PO 2 mg BREAKFAST KIKA Administration Sodium Chloride 250 mls @ 15 mls/hr 08/09/25 17:24 IV .[id number] PRN Saline Flush Sodium Chloride 250 mls @ 15 mls/hr 08/09/25 17:24 IV .[id number] PRN Additional IVPB Infusion Levetiracetam 500 mg 08/09/25 22:00 08/10/25 08:48 Levetiracetam 500 Mg Tablet PO 08/11/25 23:59 500 mg BID KIKA Administration Metoprolol Tartrate 25 mg 08/09/25 22:00 08/10/25 08:48 Metoprolol Tartrate 25 Mg Tablet PO 25 mg BID KIKA Administration Protocol Neomycin/Polymyxin/Dexamethasone 1 drp 08/09/25 22:00 08/10/25 08:50 Neomycin/Polymyxin/Dexameth 5ml Opth.Btl RIGHT EYE 08/16/25 10:01 1 drp Q12 KIKA Administration Nystatin 500,000 unit 08/10/25 12:00 Nystatin 500,000 Unit/5 Ml Udc PO 08/20/25 12:01 4X/DAY KIKA Pantoprazole Sodium 40 mg 08/10/25 10:00 08/10/25 08:49 Pantoprazole Sodium 40 Mg Tablet PO 40 mg DAILY KIKA Administration Pravastatin Sodium 40 mg 08/09/25 22:00 08/09/25 22:09 Pravastatin 40 Mg Tablet PO 40 mg QHS KIKA Administration Senna/Docusate Sodium 2 tablet 08/09/25 22:00 08/10/25 08:49 Senna/Docusate Sodium 1 Tablet PO Not Given BID KIKA Sodium Chloride 10 - 40 ml 08/09/25 17:24 0.9% Saline Lock 10 Ml Syringe IV UD PRN SALINE FLUSH Tuberculin PPD 0.1 ml 08/17/25 10:00 Tuberculin,Purif.Prot.Deriv. 50 Tu/Ml Vial ID 08/17/25 10:01 X1 ONE Problem List Macular degeneration (Acute) Inflammatory polyarthropathy (Acute) Vitamin B12 deficiency (Acute) Vitamin D deficiency (Acute) AAA (abdominal aortic aneurysm) (Acute) SDH (subdural hematoma) (Acute) Fall (Acute) Hyperlipidemia (Acute) BPH (benign prostatic hyperplasia) (Acute) Coronary artery disease (Acute) Essential (primary) hypertension (Acute) Debility (Acute) Vital Signs Temp Pulse Resp BP Pulse Ox O2 Del Method 98.1 F 73 16 137/68 H 93 Room Air 08/10/25 09:00 08/10/25 09:00 08/10/25 09:00 08/10/25 09:00 08/10/25 09:00 08/10/25 09:00 Oxygen Delivery Method Room Air Weight: 62.46 kg Body Mass Index (BMI) 22.2 Sodium 137 mmol/L (133-145) 08/10/25 07:10 Potassium 4.3 mmol/L (3.3-5.1) 08/10/25 07:10 Chloride 103 mmol/L (98-108) 08/10/25 07:10 Carbon Dioxide 24.0 mmol/L (21.0-32.0) 08/10/25 07:10 Anion Gap 10 (5-15) 08/10/25 07:10 BUN 11 mg/dL (4-19) 08/10/25 07:10 Creatinine 0.70 mg/dL (0.70-1.20) 08/10/25 07:10 Est GFR (MDRD) Non-Af 88 (>60) 08/10/25 07:10 BUN/Creatinine Ratio 15.4 RATIO (10-20) 08/10/25 07:10 Glucose 97 mg/dL (70-99) 08/10/25 07:10 Assessment/Plan: 1. Pain: acetaminophen 1000 mg PO Q8. Please continue to monitor pain levels, and LFTs (AST/ALT = 23/29 U/L on 05/24/25). 2. Bowel: senna/docusate 2 tablets PO BID. Please continue to monitor for bowel movements (last = 08/09/25), for constipation and for diarrhea. 3. Seizure prophylaxis: levetiracetam 500 mg PO BID through 08/11/25. Please continue to monitor for s/s of seizures, for agitation, and renal function (serum creatinine = 0.70 mg/dL with creatinine clearance ~ 55 mL/min on 08/10/25). 4. Hypertension: metoprolol tartrate 25 mg PO BID. Please continue to monitor blood pressures (recent range = 137-173/65-81 mmHg), and heart rates (recent range = 72-97 beats/min), and for fatigue. Several of the patient's systolic blood pressures have been elevated recently. It appears the patient had recent prescriptions filled for both benazepril and amlodipine. Please consider starting an additional blood pressure medication such as amlodipine 5 mg PO daily to help reduce high blood pressures. 5. Conjunctivitis: neomycin/polymyxin 1 application topically twice daily throug h 08/16/25. Please continue to monitor for resolution of eye infection and for eye pain/irritation. 6. Hyperlipidemia: pravastatin 40 mg PO QHS. Please continue to monitor lipid levels (cholesterol = 110 mg/dL with LDL = 62 mg/dL on 05/24/25), as well as LFTs (AST/ALT = 23/29 U/L on 05/24/25), and for myalgias. 7. Oral thrush: nystatin 500,000 units/5 mL PO topically/orally 4x/day through 08/20/25. Please continue to monitor for resolution of oral thrush. 8. GERD: pantoprazole 40 mg PO daily. Please continue to monitor for s/s of GERD, for diarrhea that could indicate clostridium difficile infection, and for s/s of bone resorption such as fractures. 9. Folate deficiency: folic acid 2 mg PO with breakfast. Please continue to monitor for s/s of folate deficiency. 10. Vitamin D deficiency: cholecalciferol 125 mcg PO daily. Please continue to monitor vitamin D levels (vitamin D = 20.3 ng/mL on 05/24/25), as well as for s/s of vitamin D deficiency. 11. Skin irritation: calmoseptine 1 application topically BID. Please continue to monitor for skin irritation and skin integrity. Assessment/Plan for indications treated with psychotropic medications: 1. Major depression: escitalopram 5 mg PO daily. Please see provider note regarding stable chronic long-term use GDR recommended. Monitor for efficacy including resident symptoms, behaviors and indications of distress. Monitor for depression and for SI. Monitor for tolerability including mental status, cognition, excessive sleepiness, withdrawal or decreased participation in activities and decline in physical functioning. Maximize use of nonpharmacologic/behavioral interventions to facilitate dose reduction or discontinuation as appropriate. Please evaluate the appropriateness of GDR unless contraindicated. If appropriate, GDR should be attempted in 2 separate quarters within the first year of use or admission to TCU. If GDR attempted, monitor resident symptoms/behaviors. Monitor for diarrhea, nausea, headache, anxiety or drowsiness, suicidal thoughts or behaviors (Boxed Warning), symptoms of bleeding, symptoms of serotonin syndrome (including agitation, confusion, hyperreflexia, rigidity/myoclonus, tremor, tachycardia, tachypnea), sodium levels (last Na = 137 mmol/L on 08/10/25). Medical chart and medication regimen reviewed. The following medication irregularities or issues were identified: 1. Hypertension: metoprolol tartrate 25 mg PO BID. Several of the patient's systolic blood pressures have been elevated recently. It appears the patient had recent prescriptions filled for both benazepril and amlodipine. Please consider starting an additional blood pressure medication such as amlodipine 5 mg PO daily to help reduce high blood pressures. Date Date of Note: 08/10/25 Documented by User: Dr. Jesus Alberto Wiggins MD 08/10/25 12:00 TCU RX Drug Regimen Review Provider Comments Provider responsibility Provider Comments to Recommendations by Pharmacy Agree
[2025-08-10] MEDS: NYSTATIN 500,000 UNIT/5 ML UDC 500000 UNIT PO ×3 (11:18→22:06)
--- NOTE | 2025-08-10 12:17 | MDS.RN ---
MDS entry tracker complete, Pain assessed. Resident sitting up in recliner chair, eating lunch, modified diet per order, c/o difficulty swallowing. Instructed to not eat anymore, QUALITY TECH immediately notified and went to resident's room to assess.
[2025-08-10 13:18] VITALS: BP 101/57; PULSE 70
--- NOTE | 2025-08-10 14:05 | CASEMGMT ---
Social Work SW met with patient to complete initial assessment. Pt known to this worker from recent stay. SW educated to Medicare benefit- admitting on day 58, since pt did not have a 60 day break in service. Pt has 42 days remaining and is in copay days, which family verified copay coverage at previous stay. Verified contacts and code status as DNR-CCA, no intubation. Pt's goal is to return home with with regained strength and stability. SW to contact [facility] to see if pt was still active. Pt recalls being discharged. SW will continue to follow for DC planning. Alondra Rutherford CLINICAL FELLOW DATA BASE ADMINISTRATOR
[2025-08-10 22:03] VITALS: BP 142/68; PULSE 75
[2025-08-10 22:06] VITALS: PULSE 75
[2025-08-10] MEDS: Senna/Docusate Sodium 1 Tablet 2 TABLET PO (22:06)
--- NOTE | 2025-08-10 23:41 | NURSING ---
Peg tube flushed with 30 mL of NS at 2214 per order. No residual noted. Pt tolerated procedure well. Call light within reach. Pt denies needs for further assistance
[2025-08-11] MEDS: NYSTATIN 500,000 UNIT/5 ML UDC 500000 UNIT PO ×4 (06:19→20:20)
[2025-08-11] MEDS: Cholecalciferol (Vit D3) 125 MCG CAPSULE (5,000 UNITS) PO (08:36)
[2025-08-11 08:37] VITALS: PULSE 75
[2025-08-11] MEDS: Neomycin/Polymyxin/Dexameth 5ML OPTH.BTL 1 DRP RIGHT EYE ×2 (08:37→20:19)
[2025-08-11] MEDS: Senna/Docusate Sodium 1 Tablet 2 TABLET PO (08:45)
[2025-08-11 08:50] VITALS: BP 116/62; PULSE 75; RESP 17; TEMP 36.6; O2SAT 95
[2025-08-11] MEDS: levETIRAcetam Oral Solution 500 MG/5 ML PO ×2 (10:37→20:19)
--- NOTE | 2025-08-11 15:00 | NURSING ---
Peg Tube flushed with 30ml of NS per order.
--- NOTE | 2025-08-11 15:57 | CHAPLAIN ---
Type of Pastoral Visit _x__ Initial Visit ___ Follow-up Visit ___ On-call Visit ___ General Patient Visit ___ Spiritual Assessment ___ Family Conference ___ Bereavement ___ Rapid Response ___ Code Blue ___ Other (describe below) Pastoral Care Referral From _x__ Patient ___ Family ___ Nurse ___ Physician ___ Supercalender Operator Helper ___ Restoration Technician ___ Other (describe below) Sacrament/Intervention _x__ Active listening ___ Anointing ___ Sabianist ___ Bereavement ___ Communion ___ Sully exploration ___ _x__ Life review _x__ Prayer ___ Reconciliation ___ Sacrament of Sick _x__ Supportive presence ___ Wedding ___ Other (describe below) Pastoral Comments patient was met a few weeks ago in a previous admission; pt had another fall and is back for more therapy; pt is welcoming and explains some of his experience; 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
[2025-08-11 16:54] VITALS: BMI 21.9
[2025-08-11 20:20] VITALS: BP 106/64; PULSE 75
[2025-08-11 20:32] VITALS: BP 106/64; PULSE 75
--- NOTE | 2025-08-12 00:42 | NURSING ---
Flushed PEG as ordered for patency during HS med administration. Patient tolerated well.
[2025-08-12] MEDS: NYSTATIN 500,000 UNIT/5 ML UDC 500000 UNIT PO ×4 (05:06→20:31)
--- NOTE | 2025-08-12 07:18 | NURSING ---
PEG flushed per order, patient tolerated well.
[2025-08-12 09:07] VITALS: BP 116/59; PULSE 68
[2025-08-12] MEDS: Cholecalciferol (Vit D3) 125 MCG CAPSULE (5,000 UNITS) PO (09:09)
[2025-08-12] MEDS: Neomycin/Polymyxin/Dexameth 5ML OPTH.BTL 1 DRP RIGHT EYE ×2 (09:09→20:31)
--- NOTE | 2025-08-12 13:39 | CASEMGMT ---
Social Work IDT met with patient, , dtr and gdtr for care plan meeting. Discussed patient's progress in PT/OT/ST/SN/RDN. Educated to Medicare benefit. Provided pt/family with written communication of insurance process and copay coverage during stay. Pt admitted on day 58/100 of Medicare benefit. Reiterated the goal is to preserve MC days for future need. Pt/family agreed. SW encouraged pt to have positive self talk and build confidence. SW offered ongoing support. Will continue to follow for DC planning. Alondra Rutherford CEMENT CAR DUMPER PROCESSING INSPECTOR
[2025-08-12 14:41] VITALS: BP 124/65; PULSE 66; RESP 16; TEMP 36.6; O2SAT 95
[2025-08-12 19:04] LABS: Hematocrit 40.7 % (40-54); Hemoglobin 13.3 g/dL (13.0-16.5); Immature Granulocytes Count 0.030 X10^3/uL (0.0-0.0); Mean Corp Hgb Conc 32.7 g/dL (32-36); Mean Corpuscular Volume 94.0 fL (80-94); Mean Platelet Vol. 9.1 fl (6.2-12.0); NRBC Flagged by Analyzer 0 % (0-5); Platelet Count 250 K/mm3 (150-450); RBC Distribution Width CV 12.9 % (11.6-14.6); RBC Distribution Width SD 44.7 fl (35.1-43.9); Red Blood Count 4.33 M/mm3 (4.6-6.2); White Blood Count 8.4 K/mm3 (4.4-11.0)
[2025-08-12 19:51] LABS: Anion Gap 11 (5-15); BUN 23 mg/dL (4-19); BUN/Creat Ratio 27.6 RATIO (10-20); Calcium,Total 9.6 mg/dL (7.6-11.0); Carbon Dioxide 24.0 mmol/L (21.0-32.0); Chloride 102 mmol/L (98-108); Estimated Creatinine Clearance 52.29 ml/min (50-250); Glucose 139 mg/dL (70-99); Potassium 4.0 mmol/L (3.3-5.1)
[2025-08-12 20:32] VITALS: BP 132/63; PULSE 73
[2025-08-13 00:07] LABS: Mucous, Urine 0 SEEN /hpf (<or=2+); Red Blood Cells-Urine 0 SEEN /hpf (0-5)
[2025-08-13 00:11] LABS: Color, Urine Yellow (Yellow); Glucose, Dipstick Normal (Normal); Ketone-Dipstick Negative (Negative); Leukocyte Esterase-Dipstick Negative /ul (Negative); Nitrite-Dipstick Negative (Negative); Occult Blood-Urine Negative /ul (Negative); Protein-Dipstick 30 mg/dl (Negative); Specific Gravity, Urine 1.020 (1.002-1.030); Urine Bilirubin Dipstick Negative (Negative)
[2025-08-13 00:35] LABS: Calcium Oxalate Crystals Ur 2+ /hpf (<or=2+); Squamous Epithelial Cells - UA 0-5 SEEN /hpf (0-5)
[2025-08-13] MEDS: NYSTATIN 500,000 UNIT/5 ML UDC 500000 UNIT PO ×4 (05:21→21:59)
[2025-08-13 09:58] VITALS: BP 119/61; PULSE 77
[2025-08-13] MEDS: Neomycin/Polymyxin/Dexameth 5ML OPTH.BTL 1 DRP RIGHT EYE ×2 (09:58→21:59)
[2025-08-13] MEDS: Cholecalciferol (Vit D3) 125 MCG CAPSULE (5,000 UNITS) PO (09:59)
[2025-08-13 10:09] VITALS: BP 119/61; PULSE 77; RESP 16; TEMP 36.4; O2SAT 98
--- NOTE | 2025-08-13 16:58 | NURSING ---
OIL AND GAS SUPERINTENDENT STATED TO THIS NURSE THAT PT WALKED HIS SELF FROM BATHROOM AND ATTENDS WERE AT HIS KNEES. THIS NURSE WENT TO PT ROOM AND ASKED PT IF HE TRANSFERRED HIMSELF FROM THE BATHROOM. PT STATED WELL I DIDNT KNOW WHAT TO DO. THIS NURSE EDUCATED PT ON WAITING FOR STAFF AND USING THE CALL LIGHT. PT STATED OK. THIS NURSE AND AID ADJUSTED PT ATTENDS AND PANTS AND GOT PT COMFORTABLE. CALL LIGHT AND TABLE WITHIN REACH.
--- NOTE | 2025-08-13 17:03 | NURSING ---
PT COMPLANED OF LEFT RIB AREA PAIN. ASKED PT HOW LONG HE HAS HAD IT PT STATED ABOUT 2 WEEKS. NOTE LEFT FOR . ALSO FLUSHED PEG 30ML AT 1400 PER ORDER.
--- NOTE | 2025-08-13 18:25 | RAD_ITS ---
PROCEDURE: RIBS UNI MIN 3V W/PA CHEST 08/13/2025 REASON FOR EXAM: PAIN. TECHNIQUE: Procedure Code: RADRIB Modality: DX Procedure: RIBS UNI MIN 3V W/PA CHEST FINDINGS: The lungs are clear. No visualized displaced rib fracture. Left shoulder arthroplasty. RAD/Ribs Uni Min 3V w/PA Chest IMPRESSION: No visualized left rib fracture. Reading Location: [id number]
[2025-08-13 21:55] VITALS: BP 134/69; PULSE 75; RESP 16; O2SAT 94
[2025-08-13 21:58] VITALS: BP 134/69; PULSE 75
[2025-08-13 22:00] VITALS: PULSE 75; RESP 17; O2SAT 94
[2025-08-14] MEDS: NYSTATIN 500,000 UNIT/5 ML UDC 500000 UNIT PO ×4 (04:54→20:14)
[2025-08-14 08:48] VITALS: BP 162/80; PULSE 91
[2025-08-14] MEDS: Cholecalciferol (Vit D3) 125 MCG CAPSULE (5,000 UNITS) PO (08:49)
[2025-08-14] MEDS: Neomycin/Polymyxin/Dexameth 5ML OPTH.BTL 1 DRP RIGHT EYE ×2 (08:49→20:14)
[2025-08-14 08:56] VITALS: BP 162/80; PULSE 91; RESP 16; TEMP 36.7; O2SAT 94
--- NOTE | 2025-08-14 11:19 | MDS.RN ---
Pain assessment for MDS complete.
--- NOTE | 2025-08-14 17:41 | NURSING ---
PEG FLUSHED 30ML PER ORDER.
[2025-08-14] MEDS: Senna/Docusate Sodium 1 Tablet 2 TABLET PO (20:13)
[2025-08-14 20:25] VITALS: BP 135/73; PULSE 77; RESP 17; O2SAT 96
[2025-08-14 20:26] VITALS: BP 135/73; PULSE 77
[2025-08-15] MEDS: NYSTATIN 500,000 UNIT/5 ML UDC 500000 UNIT PO ×4 (06:09→20:24)
[2025-08-15 08:45] VITALS: BP 113/61; PULSE 83; RESP 18; TEMP 36.4; O2SAT 95
[2025-08-15 08:51] VITALS: PULSE 83
[2025-08-15] MEDS: Cholecalciferol (Vit D3) 125 MCG CAPSULE (5,000 UNITS) PO (08:52)
[2025-08-15] MEDS: Neomycin/Polymyxin/Dexameth 5ML OPTH.BTL 1 DRP RIGHT EYE ×2 (08:53→20:34)
[2025-08-15 20:22] VITALS: BP 140/70; PULSE 80
[2025-08-15 20:25] VITALS: PULSE 80
[2025-08-15] MEDS: Senna/Docusate Sodium 1 Tablet 2 TABLET PO (20:33)
[2025-08-16] MEDS: NYSTATIN 500,000 UNIT/5 ML UDC 500000 UNIT PO ×4 (06:38→20:56)
[2025-08-16 06:40] VITALS: PULSE 80; RESP 16; O2SAT 93
[2025-08-16 08:37] VITALS: PULSE 76
[2025-08-16] MEDS: Neomycin/Polymyxin/Dexameth 5ML OPTH.BTL 1 DRP RIGHT EYE (08:37)
[2025-08-16] MEDS: Cholecalciferol (Vit D3) 125 MCG CAPSULE (5,000 UNITS) PO (08:38)
[2025-08-16 08:39] VITALS: BP 104/56; PULSE 76; RESP 18; TEMP 35.9; O2SAT 95
[2025-08-16 20:53] VITALS: BP 115/67; PULSE 80
[2025-08-16 20:56] VITALS: PULSE 80
--- NOTE | 2025-08-16 23:19 | NURSING ---
Peg tube flushed with 30 ml NS per order at 2100. Pt tolerated well. Pt denies needs for further assistance. Call light within reach
[2025-08-17] MEDS: NYSTATIN 500,000 UNIT/5 ML UDC 500000 UNIT PO ×4 (05:38→19:50)
--- NOTE | 2025-08-17 05:46 | NURSING ---
Peg tube flushed with 30 mL NS per order. Pt tolerated well.
[2025-08-17 06:29] LABS: Hematocrit 37.7 % (40-54); Hemoglobin 12.3 g/dL (13.0-16.5); Immature Granulocytes Count 0.040 X10^3/uL (0.0-0.0); Mean Corp Hgb Conc 32.6 g/dL (32-36); Mean Corpuscular Volume 94.5 fL (80-94); Mean Platelet Vol. 9.3 fl (6.2-12.0); NRBC Flagged by Analyzer 0 % (0-5); Platelet Count 297 K/mm3 (150-450); RBC Distribution Width CV 13.2 % (11.6-14.6); RBC Distribution Width SD 45.8 fl (35.1-43.9); Red Blood Count 3.99 M/mm3 (4.6-6.2); White Blood Count 7.5 K/mm3 (4.4-11.0)
[2025-08-17 06:53] LABS: Anion Gap 11 (5-15); BUN 30 mg/dL (4-19); BUN/Creat Ratio 42.8 RATIO (10-20); Calcium,Total 9.1 mg/dL (7.6-11.0); Carbon Dioxide 23.7 mmol/L (21.0-32.0); Chloride 105 mmol/L (98-108); Estimated Creatinine Clearance 54.90 ml/min (50-250); Glucose 99 mg/dL (70-99); Potassium 4.2 mmol/L (3.3-5.1)
[2025-08-17 08:21] VITALS: BP 132/59; PULSE 84; RESP 16; TEMP 36.4; O2SAT 97
[2025-08-17 08:38] VITALS: PULSE 84
[2025-08-17] MEDS: Cholecalciferol (Vit D3) 125 MCG CAPSULE (5,000 UNITS) PO (08:39)
--- NOTE | 2025-08-17 09:06 | NURSING ---
Silk Screen Cutter Note; MDS for 08/16/2025 Complete
[2025-08-17] MEDS: Tuberculin,Purif.prot.deriv. 50 TU/ML Vial 0.1 ML ID (10:21)
[2025-08-17] MEDS: Senna/Docusate Sodium 1 Tablet 2 TABLET PO (10:21)
[2025-08-17 19:45] VITALS: BP 118/59; PULSE 75; RESP 16; O2SAT 95
[2025-08-17 19:49] VITALS: BP 118/59; PULSE 75
[2025-08-17 20:00] VITALS: PULSE 75; RESP 16; O2SAT 95
[2025-08-18] MEDS: NYSTATIN 500,000 UNIT/5 ML UDC 500000 UNIT PO ×4 (05:18→20:30)
[2025-08-18 06:46] LABS: Hematocrit 37.9 % (40-54); Hemoglobin 12.4 g/dL (13.0-16.5); Immature Granulocytes Count 0.030 X10^3/uL (0.0-0.0); Mean Corp Hgb Conc 32.7 g/dL (32-36); Mean Corpuscular Volume 93.6 fL (80-94); Mean Platelet Vol. 9.0 fl (6.2-12.0); NRBC Flagged by Analyzer 0 % (0-5); Platelet Count 273 K/mm3 (150-450); RBC Distribution Width CV 13.2 % (11.6-14.6); RBC Distribution Width SD 45.5 fl (35.1-43.9); Red Blood Count 4.05 M/mm3 (4.6-6.2); White Blood Count 7.7 K/mm3 (4.4-11.0)
[2025-08-18 07:04] LABS: Anion Gap 9 (5-15); BUN 34 mg/dL (4-19); BUN/Creat Ratio 45.3 RATIO (10-20); Calcium,Total 9.0 mg/dL (7.6-11.0); Carbon Dioxide 24.6 mmol/L (21.0-32.0); Chloride 108 mmol/L (98-108); Estimated Creatinine Clearance 54.90 ml/min (50-250); Glucose 100 mg/dL (70-99); Potassium 4.3 mmol/L (3.3-5.1)
[2025-08-18 09:27] VITALS: BP 127/70; PULSE 89; RESP 16; TEMP 36.2; O2SAT 95
[2025-08-18 09:29] VITALS: PULSE 89
[2025-08-18] MEDS: Cholecalciferol (Vit D3) 125 MCG CAPSULE (5,000 UNITS) PO (09:29)
--- NOTE | 2025-08-18 13:27 | MDS.RN ---
Information for the MDS was obtained from review of the clinical record, interview of resident, staff, and direct observation of resident?s care.
[2025-08-18 14:45] VITALS: BMI 21.9
[2025-08-18 20:28] VITALS: BP 127/55; PULSE 74
[2025-08-19] MEDS: NYSTATIN 500,000 UNIT/5 ML UDC 500000 UNIT PO ×4 (04:55→20:49)
[2025-08-19 07:03] LABS: Hematocrit 40.0 % (40-54); Hemoglobin 13.1 g/dL (13.0-16.5); Immature Granulocytes Count 0.040 X10^3/uL (0.0-0.0); Mean Corp Hgb Conc 32.8 g/dL (32-36); Mean Corpuscular Volume 93.7 fL (80-94); Mean Platelet Vol. 9.2 fl (6.2-12.0); NRBC Flagged by Analyzer 0 % (0-5); Platelet Count 320 K/mm3 (150-450); RBC Distribution Width CV 13.2 % (11.6-14.6); RBC Distribution Width SD 45.1 fl (35.1-43.9); Red Blood Count 4.27 M/mm3 (4.6-6.2); White Blood Count 7.8 K/mm3 (4.4-11.0)
[2025-08-19 07:45] LABS: Anion Gap 12 (5-15); BUN 30 mg/dL (4-19); BUN/Creat Ratio 39.8 RATIO (10-20); Calcium,Total 9.4 mg/dL (7.6-11.0); Carbon Dioxide 21.9 mmol/L (21.0-32.0); Chloride 106 mmol/L (98-108); Estimated Creatinine Clearance 54.75 ml/min (50-250); Glucose 97 mg/dL (70-99); Potassium 4.3 mmol/L (3.3-5.1)
[2025-08-19] MEDS: Cholecalciferol (Vit D3) 125 MCG CAPSULE (5,000 UNITS) PO (10:09)
[2025-08-19 10:10] VITALS: PULSE 71
[2025-08-19 10:15] VITALS: BP 113/61; PULSE 71; RESP 16; TEMP 36.6; O2SAT 97
[2025-08-19 20:20] VITALS: PULSE 75; O2SAT 96
--- NOTE | 2025-08-19 20:30 | NURSING ---
Upon assessment, pt reporting discomfort to both eyes. Pt states my eyes are dry and scratchy. Pt requesting PRN eye drops for dry eyes. Notified Dr. Wiggins via secure text message of pt request. New order for Artificial tears 1 drop each eye q1h PRN for dry eyes per Dr. Wiggins. Order verified via text back.
[2025-08-19 20:46] VITALS: BP 116/61; PULSE 70
[2025-08-19 20:49] VITALS: PULSE 70
[2025-08-19] MEDS: CARBOXYMETHYLCELLULOSE SODIUM 15 ML OPHTH DROPS 1 DRP EACH EYE (21:17)
[2025-08-20] MEDS: NYSTATIN 500,000 UNIT/5 ML UDC 500000 UNIT PO ×2 (05:44→13:35)
[2025-08-20] MEDS: CARBOXYMETHYLCELLULOSE SODIUM 15 ML OPHTH DROPS 1 DRP EACH EYE ×2 (05:44→22:20)
[2025-08-20 07:51] LABS: Hematocrit 40.2 % (40-54); Hemoglobin 13.4 g/dL (13.0-16.5); Immature Granulocytes Count 0.030 X10^3/uL (0.0-0.0); Mean Corp Hgb Conc 33.3 g/dL (32-36); Mean Corpuscular Volume 92.6 fL (80-94); Mean Platelet Vol. 9.2 fl (6.2-12.0); NRBC Flagged by Analyzer 0 % (0-5); Platelet Count 332 K/mm3 (150-450); RBC Distribution Width CV 13.1 % (11.6-14.6); RBC Distribution Width SD 44.5 fl (35.1-43.9); Red Blood Count 4.34 M/mm3 (4.6-6.2); White Blood Count 7.5 K/mm3 (4.4-11.0)
[2025-08-20 08:32] LABS: Anion Gap 11 (5-15); BUN 30 mg/dL (4-19); BUN/Creat Ratio 41.7 RATIO (10-20); Calcium,Total 9.4 mg/dL (7.6-11.0); Carbon Dioxide 22.5 mmol/L (21.0-32.0); Chloride 106 mmol/L (98-108); Estimated Creatinine Clearance 54.75 ml/min (50-250); Glucose 100 mg/dL (70-99); Potassium 4.4 mmol/L (3.3-5.1)
[2025-08-20 09:49] VITALS: PULSE 75
[2025-08-20] MEDS: Cholecalciferol (Vit D3) 125 MCG CAPSULE (5,000 UNITS) PO (09:50)
[2025-08-20] MEDS: Senna/Docusate Sodium 1 Tablet 2 TABLET PO (10:07)
[2025-08-20 16:00] VITALS: BP 115/59; PULSE 67; RESP 16; TEMP 36.7; O2SAT 93
[2025-08-20 22:20] VITALS: BP 130/63; PULSE 72
[2025-08-20 22:28] VITALS: BP 130/63; PULSE 72
--- NOTE | 2025-08-21 04:52 | NURSING ---
PEG flushed per order. Tubing is free of kinks and obstructions. Patent and intact.
[2025-08-21 08:44] VITALS: BP 122/66; PULSE 74
[2025-08-21] MEDS: Cholecalciferol (Vit D3) 125 MCG CAPSULE (5,000 UNITS) PO (08:45)
[2025-08-21 08:51] VITALS: BP 122/66; PULSE 74; RESP 16; TEMP 36.2; O2SAT 94
[2025-08-21] MEDS: CARBOXYMETHYLCELLULOSE SODIUM 15 ML OPHTH DROPS 1 DRP EACH EYE (08:53)
--- NOTE | 2025-08-21 14:04 | CASEMGMT ---
Social Work Family requested to meet with this worker privately from pt. SW met with , dtr and son. Family inquired about next steps for DC with pt. SW explained IDT will discuss progress, but from this worker's observations, pt is improving well and needing minimally assistance for tasks. No DC timeframe known yet, but reiterated pt/family can elect DC and to save Medicare days. stated she does not feel safe having pt at home as she cannot care for him. Family inquired about a SNF. SW educated that TCU is a SNF and if he transfer to a facility, it would be LTC (even if it is not permanent). Family denied wanting a facility. SW educated to the options of home with CAGE SUPERVISOR or [place]. SW agreed pt is not appropriate for LTC, though IDT is agreeable to home. SW explored 's concerns. stated she needed more help with assisting pt. SW offered CAGE SUPERVISOR - to schedule times for when pt needs more care, such as the morning hours to get cleaned up, dressed, meds. Then in the evenings to bathe, dress and meds. Family can check-in during the day. All interested in that option. noted managing pt's diet. SW explained home delivered meal services can assist with modifying the diet as well, to help offset from 's cooking. All interested in that option as well. SW provided resources and family to discuss. stated pt has a LTC policy. SW suggested to review policy for daily or month reimbursement amount and lifetime maximum, and to utilize that assistance presently to help keep pt in the home longer. All in agreement. All appreciative of assistance from this worker. SW will continue to follow. Alondra Rutherford MSW ROTARY DRILLER HELPER
--- NOTE | 2025-08-21 15:12 | NURSING ---
PEG FLUSHED 30ML PER ORDER.PT TOLERATED WELL.
[2025-08-21 20:35] VITALS: BP 105/57; PULSE 79; RESP 17; O2SAT 94
[2025-08-21 20:40] VITALS: BP 105/57; PULSE 79; PULSE 80; RESP 16; O2SAT 94
[2025-08-21] MEDS: Senna/Docusate Sodium 1 Tablet 2 TABLET PO (20:43)
[2025-08-22] MEDS: CARBOXYMETHYLCELLULOSE SODIUM 15 ML OPHTH DROPS 1 DRP EACH EYE ×2 (09:24→20:58)
[2025-08-22 09:27] VITALS: BP 129/78; PULSE 77
[2025-08-22] MEDS: Cholecalciferol (Vit D3) 125 MCG CAPSULE (5,000 UNITS) PO (09:28)
[2025-08-22 09:37] VITALS: BP 129/78; PULSE 77; RESP 16; TEMP 36.4; O2SAT 94
--- NOTE | 2025-08-22 13:20 | NURSING ---
PEG FLUSHED 30ML PER ORDER. NO PROBLEMS OR KINKS IN TUBING. PT TOLERATED WELL.
[2025-08-22 20:57] VITALS: BP 120/50; PULSE 67
[2025-08-22 21:08] VITALS: BP 120/50; PULSE 67
--- NOTE | 2025-08-22 23:25 | NURSING ---
PEG flushed per order. Tubing patent and free of kinks/obstructions.
--- NOTE | 2025-08-23 06:02 | NURSING ---
PEG flushed per order. Tubing patent and free of kinks/obstructions.
[2025-08-23] MEDS: CARBOXYMETHYLCELLULOSE SODIUM 15 ML OPHTH DROPS 1 DRP EACH EYE ×2 (08:22→20:37)
[2025-08-23 08:26] VITALS: BP 126/65; PULSE 74
[2025-08-23] MEDS: Cholecalciferol (Vit D3) 125 MCG CAPSULE (5,000 UNITS) PO (08:26)
[2025-08-23] MEDS: Senna/Docusate Sodium 1 Tablet 2 TABLET PO ×2 (08:32→20:36)
[2025-08-23 08:36] VITALS: BP 126/65; PULSE 74; RESP 16; TEMP 36.2; O2SAT 94
--- NOTE | 2025-08-23 13:24 | NURSING ---
PEG TUBE FLUSHED WITH 30ML PER ORDER,FREE OF KINKS. PT TOLERATED WELL.
[2025-08-23 20:37] VITALS: BP 118/58; PULSE 67
--- NOTE | 2025-08-23 20:50 | NURSING ---
PEG flushed per order. Tubing patent and free of kinks/obstruction.
[2025-08-23 20:51] VITALS: BP 118/58; PULSE 67; PULSE 68; RESP 16; O2SAT 98
[2025-08-24 01:33] VITALS: PULSE 66; RESP 16; O2SAT 93
--- NOTE | 2025-08-24 05:00 | NURSING ---
Cleansed and changed dressing to PEG site as ordered. PEG tube flushed per order, patent and free of kinks/obstructions.
[2025-08-24 11:11] VITALS: BP 106/64; PULSE 76; RESP 17; TEMP 36.6; O2SAT 94
[2025-08-24 11:15] VITALS: BP 106/64; PULSE 76
[2025-08-24] MEDS: Cholecalciferol (Vit D3) 125 MCG CAPSULE (5,000 UNITS) PO (11:16)
[2025-08-24 21:21] VITALS: BP 116/62; PULSE 68
[2025-08-24 21:23] VITALS: PULSE 68
[2025-08-24] MEDS: CARBOXYMETHYLCELLULOSE SODIUM 15 ML OPHTH DROPS 1 DRP EACH EYE (21:23)
[2025-08-25 05:35] VITALS: PULSE 70; O2SAT 94
[2025-08-25 08:53] VITALS: BP 113/71; PULSE 70; RESP 16
[2025-08-25 08:59] VITALS: BP 113/71; PULSE 70
[2025-08-25] MEDS: Cholecalciferol (Vit D3) 125 MCG CAPSULE (5,000 UNITS) PO (09:00)
[2025-08-25] MEDS: Senna/Docusate Sodium 1 Tablet 2 TABLET PO ×2 (09:00→22:10)
[2025-08-25 11:58] VITALS: BP 113/71; PULSE 70; RESP 16; TEMP 36.2; O2SAT 94
[2025-08-25 14:00] VITALS: BMI 22.2
[2025-08-25 22:04] VITALS: BP 137/66; PULSE 73
[2025-08-25 22:05] VITALS: PULSE 73
[2025-08-25] MEDS: CARBOXYMETHYLCELLULOSE SODIUM 15 ML OPHTH DROPS 1 DRP EACH EYE (22:05)
[2025-08-26] MEDS: CARBOXYMETHYLCELLULOSE SODIUM 15 ML OPHTH DROPS 1 DRP EACH EYE ×2 (06:21→21:37)
[2025-08-26 06:24] VITALS: PULSE 67; O2SAT 96
[2025-08-26 09:19] VITALS: PULSE 76
[2025-08-26] MEDS: Cholecalciferol (Vit D3) 125 MCG CAPSULE (5,000 UNITS) PO (09:19)
[2025-08-26 09:32] VITALS: BP 116/62; PULSE 76; RESP 16; TEMP 36.4; O2SAT 94
[2025-08-26 21:26] VITALS: BP 121/59; PULSE 69
[2025-08-26 21:36] VITALS: PULSE 69
[2025-08-26] MEDS: Senna/Docusate Sodium 1 Tablet 2 TABLET PO (21:36)
--- NOTE | 2025-08-26 21:46 | NURSING ---
Per pharmacy, arthritis compound is on back order. Unable to give medication as ordered. Pt requesting order for blue gel instead. Notified Dr. Wiggins via secure text message. New order for blue gel topically TID per Dr. Wiggins via secure text message. Order verified via text back. Updated pt. Pt appreciative.
[2025-08-26] MEDS: MENTHOL 226.8 GM JAR 1 APPLIC TOPICAL (22:23)
[2025-08-27] MEDS: MENTHOL 226.8 GM JAR 1 APPLIC TOPICAL ×3 (06:04→21:00)
[2025-08-27] MEDS: CARBOXYMETHYLCELLULOSE SODIUM 15 ML OPHTH DROPS 1 DRP EACH EYE ×2 (06:08→21:00)
[2025-08-27] MEDS: Cholecalciferol (Vit D3) 125 MCG CAPSULE (5,000 UNITS) PO (09:37)
[2025-08-27 09:38] VITALS: BP 122/62; PULSE 78
[2025-08-27 15:52] VITALS: BP 122/62; PULSE 78; RESP 16; O2SAT 94
[2025-08-27 16:37] VITALS: BP 122/62; PULSE 78; RESP 16; TEMP 37; O2SAT 94
[2025-08-27 21:00] VITALS: BP 115/54; PULSE 72
[2025-08-27] MEDS: Senna/Docusate Sodium 1 Tablet 2 TABLET PO (21:08)
[2025-08-27 21:18] VITALS: BP 115/54; PULSE 72; RESP 16; O2SAT 95
[2025-08-27 21:20] VITALS: PULSE 75; RESP 16; O2SAT 95
[2025-08-28] MEDS: MENTHOL 226.8 GM JAR 1 APPLIC TOPICAL ×3 (05:37→21:28)
[2025-08-28 05:40] VITALS: PULSE 70; RESP 16; O2SAT 98
[2025-08-28 08:39] VITALS: BP 125/82; PULSE 82
[2025-08-28] MEDS: Cholecalciferol (Vit D3) 125 MCG CAPSULE (5,000 UNITS) PO (08:39)
[2025-08-28 16:00] VITALS: BP 123/58; PULSE 83; RESP 16; TEMP 36.8; O2SAT 93
[2025-08-28 21:28] VITALS: BP 117/42; PULSE 78
[2025-08-28] MEDS: Senna/Docusate Sodium 1 Tablet 2 TABLET PO (21:28)
[2025-08-28] MEDS: CARBOXYMETHYLCELLULOSE SODIUM 15 ML OPHTH DROPS 1 DRP EACH EYE (21:28)
[2025-08-28 21:41] VITALS: BP 117/42; PULSE 78
--- NOTE | 2025-08-28 21:41 | NURSING ---
Flushed PEG per order. Tubing patent and fee of kinks/obstructions.
[2025-08-29] MEDS: MENTHOL 226.8 GM JAR 1 APPLIC TOPICAL ×3 (05:19→22:39)
--- NOTE | 2025-08-29 06:53 | NURSING ---
PEG flushed per order. Patent and tubing free of kinks/obstructions.
[2025-08-29 09:16] VITALS: PULSE 79
[2025-08-29] MEDS: Cholecalciferol (Vit D3) 125 MCG CAPSULE (5,000 UNITS) PO (09:16)
[2025-08-29 10:00] VITALS: BP 117/66; PULSE 79; RESP 16; TEMP 36.7; O2SAT 99
[2025-08-29] MEDS: Senna/Docusate Sodium 1 Tablet 2 TABLET PO (22:38)
[2025-08-29 22:39] VITALS: BP 125/55; PULSE 65
[2025-08-30] MEDS: MENTHOL 226.8 GM JAR 1 APPLIC TOPICAL ×3 (06:47→20:03)
[2025-08-30 08:57] VITALS: PULSE 74
[2025-08-30] MEDS: Cholecalciferol (Vit D3) 125 MCG CAPSULE (5,000 UNITS) PO (08:57)
[2025-08-30] MEDS: Senna/Docusate Sodium 1 Tablet 2 TABLET PO (08:59)
[2025-08-30 09:08] VITALS: BP 127/65; PULSE 74; RESP 16; TEMP 36.5; O2SAT 91
[2025-08-30 19:57] VITALS: PULSE 69
[2025-08-31] MEDS: MENTHOL 226.8 GM JAR 1 APPLIC TOPICAL ×3 (05:18→22:00)
[2025-08-31 08:46] VITALS: BP 117/69; PULSE 73; RESP 16; TEMP 36.2; O2SAT 95
[2025-08-31] MEDS: Cholecalciferol (Vit D3) 125 MCG CAPSULE (5,000 UNITS) PO (08:49)
[2025-08-31 08:50] VITALS: BP 117/69; PULSE 77
[2025-08-31 21:59] VITALS: PULSE 72
[2025-08-31] MEDS: Senna/Docusate Sodium 1 Tablet 2 TABLET PO (22:09)
[2025-09-01] MEDS: MENTHOL 226.8 GM JAR 1 APPLIC TOPICAL ×3 (07:08→23:03)
[2025-09-01 09:17] VITALS: BP 113/64; PULSE 79
[2025-09-01] MEDS: Cholecalciferol (Vit D3) 125 MCG CAPSULE (5,000 UNITS) PO (09:18)
[2025-09-01] MEDS: CARBOXYMETHYLCELLULOSE SODIUM 15 ML OPHTH DROPS 1 DRP EACH EYE (09:18)
[2025-09-01] MEDS: Senna/Docusate Sodium 1 Tablet 2 TABLET PO (09:21)
[2025-09-01 09:29] VITALS: BP 113/64; PULSE 79; RESP 16; TEMP 36.6; O2SAT 96
--- NOTE | 2025-09-01 13:25 | NURSING ---
PEG FLUSHED WITH 30ML PER ORDER. NEW DRESSING TO PEG SITE,CLEANED AND NO S/S OF INFECTION. NEW CATH SECURE ALSO PLACED.
[2025-09-01 14:00] VITALS: BMI 22.5
--- NOTE | 2025-09-01 16:13 | CASEMGMT ---
Social Work SW phoned to follow up on DC planning. IDT reports pt is making progress and will be ready for DC next week. SW inquired if had contacted any DIE CASTING MACHINE MAINTAINER agencies to assist at home. stated I was waiting to hear from you on what is going on. He isn't going on. I don't know what you know, but if you've seen him, you know he can't go home. SW explained IDT reviewed pt's progress in UR today and pt is SBA-CGA, Rajwinder for LE ADLs, and voice and diet are improving, close to returning to baseline. stated, he can't even stand up on his own. I don't know what you know, but I can't take care of him at home. You're not coming home me. continued to share her concerns with pt returning home and that pt needs to go to a facility. SW provided active listening and noted if does not feel comfortable or safe having pt return home, this worker understands as this worker is not coming home with pt/, but SW to assist with those DC plans. stated she and her dtr are touring places tomorrow. SW inquired about names as a referral needs to be made to review for acceptance/denial and bed availability. stated [facility] either AL or LTC. SW reminded of conversation on 08/21 that all in agreement pt is too high functioning for LTC, and AL would be most appropriate, though the accepting facility would make the final decision. SW inquired if pt is agreeable to placement. requested this worker have that conversation with pt. SW politely declined as it is not IDTs recommendation for placement. Although that DC plan can still happen without IDTs recommending, since it is the 's decision, SW explained the would have that conversation with pt and ensure pt is agreeable to plan. Explained this is pt's life and where he will be living. refuted, You're not going to do it? I was hoping you would have this conversation with him. SW clarified that this worker will assist with DC planning conversations, but reiterated this is a discussion that is between pt and . SW explained this worker and IDT will support the elected DC plan as the goal is to ensure a safe DC plan. replied, well what do you think can happen? He can just go home? He fell the last time he went home. SW aware and referenced last family meeting on hiring DIE CASTING MACHINE MAINTAINER to assist pt/ at home, as family was not wanting pt in a SNF. SW reiterated this is not a recommendation from IDT, thus, why it is appropriate for the and family to have this conversation with the pt. stated, well what are you going to go in there [pt's room] and say we say you can go home but your said you can't?. SW denied, emphasizing this worker will support and pt's decision. replied, you better. SW advocated not to threaten this worker as SW explained several times SW and IDT will support DC plan, though, pt needs to be agreeable to discharging to an AL or SNF given cannot provide his care. SW redirected conversation to this worker placing referral to [facility] requesting review for AL and LTC, and SW will keep updated on outcome, as DC date will be set the end of next week. SW suggested having conversation with pt soon as facilities generally complete an assessment for AL and pt needs to be aware and agreeable to the DC plan. reluctantly expressed understanding. Alondra Rutherford MSW AUDIT CONTROL CLERK
--- NOTE | 2025-09-01 16:21 | CASEMGMT ---
Discharge Planning Referral sent via [facility] to [facility] with note asking to eval for both SNF and AL placement. Erica Harding DC Planning Asst.
--- NOTE | 2025-09-01 17:18 | RAD_ITS ---
PROCEDURE: HIP, UNI W/ PELVIS 2-3 VIEWS 09/01/2025 REASON FOR EXAM: PAIN. TECHNIQUE: Procedure Code: RAD Modality: DX Procedure: HIP, UNI W/ PELVIS 2-3 VIEWS Laterality: Right hip COMPARISON: None FINDINGS: Bones: No fracture seen. Joints: Marked degree of joint space narrowing of the right hip joint with subchondral changes in the right femoral head. Avascular necrosis should be ruled out. 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 Status post left total hip replacement. Degenerative changes of the visualized lumbar spine. 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 Status post left hip replacement. Reading Location: [place] [id number]
[2025-09-01 22:52] VITALS: PULSE 70
[2025-09-02] MEDS: MENTHOL 226.8 GM JAR 1 APPLIC TOPICAL ×3 (05:43→21:24)
[2025-09-02 08:43] VITALS: PULSE 76
[2025-09-02] MEDS: Cholecalciferol (Vit D3) 125 MCG CAPSULE (5,000 UNITS) PO (08:43)
[2025-09-02] MEDS: Senna/Docusate Sodium 1 Tablet 2 TABLET PO ×2 (08:47→21:32)
[2025-09-02 08:52] VITALS: BP 107/63; PULSE 76; RESP 15; TEMP 36.4; O2SAT 94
[2025-09-02] MEDS: CARBOXYMETHYLCELLULOSE SODIUM 15 ML OPHTH DROPS 1 DRP EACH EYE ×2 (14:24→21:25)
--- NOTE | 2025-09-02 15:54 | CHAPLAIN ---
Type of Pastoral Visit _x__ Initial Visit ___ Follow-up Visit ___ On-call Visit ___ General Patient Visit ___ Spiritual Assessment ___ Family Conference ___ Bereavement ___ Rapid Response ___ Code Blue ___ Other (describe below) Pastoral Care Referral From _x__ Patient ___ Family ___ Nurse ___ Physician ___ Credit Rating Inspector ___ Dynamic Etching Processor ___ Other (describe below) Sacrament/Intervention _x__ Active listening ___ Anointing ___ Orthodox ___ Bereavement ___ Communion _x__ Sully exploration ___ ___ Life review _x__ Prayer ___ Reconciliation ___ Sacrament of Sick ___ Supportive presence ___ Wedding ___ Other (describe below) Pastoral Comments patient was napping in his chair but awoke easily to his name; pt is welcoming and converses about life and 'the best days of the past'; pt states that his spirits are good and that he has good thoughts and hopes; pt mentions that his brick paver was able to visit him and that was appreciated too; prayer welcomed
[2025-09-02 21:21] VITALS: BP 114/61; PULSE 68
[2025-09-02 21:24] VITALS: PULSE 68
[2025-09-02 21:34] VITALS: PULSE 68; O2SAT 94
[2025-09-03] MEDS: CARBOXYMETHYLCELLULOSE SODIUM 15 ML OPHTH DROPS 1 DRP EACH EYE ×3 (06:29→20:51)
[2025-09-03] MEDS: MENTHOL 226.8 GM JAR 1 APPLIC TOPICAL ×3 (06:29→20:51)
[2025-09-03 09:12] VITALS: BP 110/62; PULSE 77
[2025-09-03] MEDS: Cholecalciferol (Vit D3) 125 MCG CAPSULE (5,000 UNITS) PO (09:13)
[2025-09-03] MEDS: Senna/Docusate Sodium 1 Tablet 2 TABLET PO (09:18)
[2025-09-03 09:22] VITALS: BP 110/62; PULSE 77; RESP 16; TEMP 36.3; O2SAT 93
[2025-09-03 14:30] VITALS: PULSE 77; RESP 16; O2SAT 93
--- NOTE | 2025-09-03 14:49 | NURSING ---
PEG FLUSHED 30ML PER ORDER.
[2025-09-03 20:53] VITALS: BP 118/56; PULSE 73
[2025-09-03 21:07] VITALS: BP 118/56; PULSE 73
[2025-09-04] MEDS: MENTHOL 226.8 GM JAR 1 APPLIC TOPICAL ×3 (05:58→21:33)
[2025-09-04 09:47] VITALS: BP 108/59; PULSE 72; RESP 18; TEMP 36.4; O2SAT 96
[2025-09-04 09:49] VITALS: PULSE 72
[2025-09-04] MEDS: Cholecalciferol (Vit D3) 125 MCG CAPSULE (5,000 UNITS) PO (09:50)
[2025-09-04] MEDS: Senna/Docusate Sodium 1 Tablet 2 TABLET PO (09:54)
--- NOTE | 2025-09-04 14:12 | CASEMGMT ---
Addendum entered by Alondra Rutherford 09/04/25 17:08: SW spoke with pt and pt is agreeable to DC plan. Original Note: Social Work SW received call from inquiring about outcome of [facility]. SW has been in consistent communication with [facility] and received acceptance in their LTC. is agreeable to that DC and reported she has spoken with the pt and although he does not want to be a nursing facility, he accepts his cannot care for him at home and is agreeable. inquired about DC date. SW offered to schedule a sate next week that work's with 's schedule. requested 09/10. SW to coordinate. did apologize for her behavior and tone during last phone conversation with this worker. SW thanked and expressed understanding to being overwhelmed with these transitions. appreciative and will transport pt at DC. SW updated [facility] at DC - they will need a negative COVID test prior to admission. SW updated nursing. Plan: DC 09/10 to [facility], intermediate, part B therapies Alondra Rutherford MSW [place]
--- NOTE | 2025-09-04 15:15 | DS.PCM_ITS ---
Providers Date of Admission: 08/09/25 Primary Care Physician: Dr. Devan Welch MD Reason For Visit: FALL HEAD INJURY SDH Diagnosis Discharge Diagnosis (1) Debility: Status: Acute Code(s): R53.81 - Other malaise (2) Fall: Status: Acute Code(s): W19.XXXA - Unspecified fall, initial encounter (3) SDH (subdural hematoma): Status: Acute Code(s): S06.5XAA - Traumatic subdural hemorrhage with loss of consciousness status unknown, initial encounter (4) AAA (abdominal aortic aneurysm): Status: Acute Code(s): I71.40 - Abdominal aortic aneurysm, without rupture, unspecified (5) Essential (primary) hypertension: Status: Acute Code(s): I10 - Essential (primary) hypertension (6) Coronary artery disease: Status: Acute Code(s): I25.10 - Atherosclerotic heart disease of [place] coronary artery without angina pectoris (7) Vitamin D deficiency: Status: Acute Code(s): E55.9 - Vitamin D deficiency, unspecified (8) Vitamin B12 deficiency: Status: Acute Code(s): E53.8 - Deficiency of other specified B group vitamins (9) Inflammatory polyarthropathy: Status: Acute Code(s): M06.4 - Inflammatory polyarthropathy (10) Macular degeneration: Status: Acute Code(s): H35.30 - Unspecified macular degeneration (11) Hyperlipidemia: Status: Acute Code(s): E78.5 - Hyperlipidemia, unspecified (12) BPH (benign prostatic hyperplasia): Status: Acute Code(s): N40.0 - Benign prostatic 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 lower urinary tract symptoms Plan 89 year old male with below past medical history hospitalized for fall, closed head injury, right parafalcine SDH, no surgery recommended, admitted to TCU with debility, here for rehabilitation, strengthening, prior to discharge home with . * Debility - PT/OT. * Pain - Tylenol 1000mg q8. * Bowel - senna/colace 2 tablets bid. * Adult immunization - Administer pneumonia vaccine, covid vaccine, flu vaccine as appropriate. * DVT prophylaxis - Hold, SDH. * SDH - No surgery recommended. * Expressive aphasia - Resident had expressive aphasia upon arrival, CT head without contrast showed no acute changes, monitor. * Vitamin D deficiency - Vitamin D 125mcg daily. * Folate deficiency - Folic acid 2mg daily. * Seizure prophylaxis - Keppra 500mg po bid thru 08/11/2025. * Skin irritation - Calmoseptine topical bid. * Hypertension - Metoprolol 25mg bid. * Conjunctivitis - Maxitrol 1gtt OD q12 thru 08/16/2025. * GERD - Pantoprazole 40mg daily. * Hyperlipidemia - Pravastatin 40mg qhs. The following psychotropic medication was present on admission: Escitalopram 5mg daily. Psychotropic medication therapy is indicated for a diagnosis of: Major Depression. Based on my clinical evaluation, continuation of the medication is necessary at this time. Gradual dose reduction plan (select one): ____ GDR will be attempted. Will monitor patient symptoms and behaviors in response to GDR. __x__ GRD contraindicated. 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 Medications at Discharge Home Medications escitalopram oxalate 5 mg tablet 5 mg PO DAILY Mood 05/20/25 cholecalciferol (vitamin D3) 125 mcg (5,000 unit) capsule 125 mcg PO DAILY Supplement #0 caps 07/10/25 folic acid 1 mg tablet 2 mg (2 x 1 mg) PO DAILY Suppplement #0 tabs 07/10/25 metoprolol tartrate 25 mg tablet 25 mg PO BID BP #0 tabs 07/10/25 pravastatin 40 mg tablet 40 mg PO QHS Cholesterol #0 tabs 07/10/25 sennosides 8.6 mg-docusate sodium 50 mg tablet (Docuzen) 2 tab-cap PO BID Constipation 08/09/25 acetaminophen 500 mg tablet 1,000 mg (2 x 500 mg) PO Q8 #0 tabs 09/04/25 amlodipine 5 mg tablet 5 mg PO DAILY #0 tabs 09/04/25 carboxymethylcellulose sodium 0.5 % eye drops (Refresh Tears) 1 drp EACH EYE Q1H PRN DRY EYES #0 mL 09/04/25 lansoprazole 15 mg capsule,delayed release 15 mg PO DAILY #0 caps 09/04/25 menthol 0.44 %-zinc oxide 20.6 % topical ointment (Calmoseptine) 1 applic topical BID #0 grams 09/04/25 menthol 2 % topical gel (Blue Gel) 1 applic topical TID #0 grams 09/04/25 Hospital Course Operations None Procedures None Summary of Care Provided Minutes Spent on Discharge: 35 Hospital Course: 89 year old male with below past medical history hospitalized for fall, closed head injury, right parafalcine SDH, no surgery recommended, admitted to TCU with debility, here for rehabilitation, strengthening, prior to discharge home with . Discharge 09/10/2025 to [facility], part B therapies. Physical Exam Const alert General Appearance: cooperative HEENT normocephalic Eyes PERRL and EOMs intact bilaterally Neck supple, no JVD and no carotid bruits Resp normal respiratory effort, normal air movement and clear to auscultation bilaterally Cardio regular rate and regular rhythm GI normal to inspection, nondistended, normoactive bowel sounds, non-tender and non-distended Extremity normal capillary refill General Extremity: Negative for edema Skin no rashes or lesions noted General Skin Exam: no breakdown Psych affect normal Appearance: appropriate Medical Records Data Medical Nutrition Assessment Dietitian: Malnutrition Criteria Met Start: 08/10/25 10:52 Freq: Status: Active Protocol: Document 08/17/25 08:30 SLA (Rec: 08/17/25 08:30 SLA [id number]) Nutrition Malnutrition Evidence of Yes Malnutrition Exists Malnutrition (severe Acute Illness/Injury ): Evidenced By Suboptimal Energy Intake (Moderate),Weight Loss (Severe ) Clinical Problem Biting/Chewing Difficulty Etiology swallowing difficulty r/t issues w/ dysphagia Signs/Symptoms as evidenced by need for modified consistency diet Status Active Problem Acute Disease or Injury Related Malnutrition Etiology related to acute medical issues and dysphagia/need for modified consistency diet and recent PEG feedings to supplement po intake resulting Signs/Symptoms as evidenced by 6.4% unplanned wt loss and po intake meeting <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 Status Active Problem Recommendation Dietitian Will continue liberal Regular diet w/ consistency per Recommendations/ WILDLIFE BIOSTATION RESEARCH ECOLOGIST d/t signs/symptoms of malnutrition Changes Will continue 8 oz vanilla EPHP tid w/ meals and fortified foods w/ all meals as able for increased nutrition if consumed. If wt loss / poor po intake continue, then rec reimplement bolus TF if intake <50%. Res wants to hold off on this for now - will reconsider at time of follow up. Weight / BMI Weight Weight: 63.503 kg Body Mass Index (BMI) 22.5 ABG / Lab / Microbiology Data 08/20/25 07:25 08/20/25 07:25 Microbiology: Microbiology 08/12/25 23:35 Urine, Clean Catch Urine Culture - Final Mixed Gram Pos & Gram Neg Org 08/10/25 05:54 Nasal Secretion SARS-CoV-2 Antigen (Rapid) - Final D/C Instructions Discharge Activity: Return to Normal Activity, May Shower and Use Walker Weight Bearing Status: Weight bearing as tolerated Call your doctor if you observe: Fever of 101 or Higher, Inability to urinate, Inability to have a bowel movement, Shortness of breath, Dizziness, Fainting spells, Swelling in the ankles, Chest pain and Uncontrolled pain DC O2, CPAP, BIPAP Needs Home O2 Discharge instructions: No Additional Instructions: Discharge 09/10/2025 to [facility], intermediate, part B therapies. Please Follow Up With: Varghese Welch MD When: After discharge from [facility]. Meaningful Use Info Meaningful Use Meaningful Use Diagnoses (Choose all that apply): None applicable Discharge Plan Admission Admit Date/Time: 08/09/25 15:50 Primary Reason for Your Visit: Debility. Attending Provider: Jesus Alberto Wiggins Chi Primary Care Provider: Devan Welch Instructions Additional Instructions / Restrictions: Discharge 09/10/2025 to [facility], intermediate, part B therapies. Discharge Orders/Prescriptions Prescriptions: New acetaminophen 500 mg Tablet 1,000 mg PO Q8 Qty: 0 0RF amlodipine 5 mg Tablet 5 mg PO DAILY Qty: 0 0RF carboxymethylcellulose sodium [Refresh Tears] 0.5 % Drops 1 drp EACH EYE Q1H PRN (Reason: DRY EYES) Qty: 0 0RF lansoprazole 15 mg Capsule,Delayed Release(Dr/Ec) 15 mg PO DAILY Qty: 0 0RF menthol [Blue Gel] 2 % Gel 1 applic topical TID Qty: 0 0RF menthol-zinc oxide [Calmoseptine] 0.44-20.6 % Ointment 1 applic topical BID Qty: 0 0RF Protocol: *Topical Application Instructions APPLICATION INSTRUCTIONS: bilateral buttocks Continued sennosides-docusate sodium [Docuzen] 8.6-50 mg tablet 2 tab-cap PO BID escitalopram oxalate 5 mg tablet 5 mg PO DAILY cholecalciferol (vitamin D3) 125 mcg (5,000 unit) Capsule 125 mcg PO DAILY Qty: 0 0RF pravastatin 40 mg Tablet 40 mg PO QHS Qty: 0 0RF folic acid 1 mg Tablet 2 mg PO DAILY Qty: 0 0RF metoprolol tartrate 25 mg Tablet 25 mg PO BID Qty: 0 0RF Discontinued menthol-zinc oxide [CalaSoothe] 0.44-20.6 % ointment 1 applic topical BID levetiracetam [Keppra] 500 mg tablet 500 mg PO BID lisinopril 5 mg tablet 5 mg PO DAILY neomycin-polymyxin B-dexameth [Maxitrol] 3.5mg/mL-10,000 unit/mL-0.1 % drops,suspension 1 drp RIGHT EYE Q12H acetaminophen 500 mg Tablet 975 mg PO Q8 amitriptyline 10 mg tablet 10 mg PO QHS aspirin 81 mg tablet 81 mg PO DAILY benazepril 40 mg tablet 40 mg feeding tube DAILY cyanocobalamin (vitamin B-12) 1,000 mcg capsule 1,000 mcg PO DAILY omeprazole 40 mg capsule,delayed release(DR/EC) 40 mg PO DAILY Healthy Eyes SuperVision 4,296 mcg-226 mg-90 mg capsule 1 cap PO DAILY methotrexate sodium 2.5 mg Tablet 20 mg PO Q7D Qty: 0 0RF pantoprazole 40 mg Tablet,Delayed Release (Dr/Ec) 40 mg PO DAILY 30 Days Qty: 30 0RF doxazosin 4 mg Tablet 4 mg PO QHS 30 Days Qty: 30 0RF cholestyramine (with sugar) 4 gram Powder In Packet 1 ea PO BIDAC 30 Days Qty: 60 0RF Referrals / Follow Up: Devan Welch MD [Primary Care Provider, Family Practice] Disposition Disposition (needs filled in before D/C Order can be placed): NonSkilled NH/Intermed Care
--- NOTE | 2025-09-04 15:23 | PCM.TXEXTCAR ---
Diet Diet Order/Speech Therapy: INPATIENT Hospital Diet / Speech Therapy Order(s) 08/09/25 16:56 Diet: Regular - General Food consistency:: Soft & Bite Sized Liquid Consistency:: [place]/Mildly Thick Type of Dietary Supplement:: Ensure Plus High Protein Diet Comments: 8 oz vanilla EPHP tid w/ meals; Fortified foods as able w/ all meals Speech Therapy Comments: small bolus with double hard swallow followed by liquid wash for each bite Routine Orders/Code Status Code Status: DNRCC-A (No intubation.) DC O2, CPAP, BIPAP needs Home O2 Discharge instructions: No Wound(s) Right eye: Wound Type: Abrasion Left elbow: Wound Type: Abrasion PEG SITE: Wound Type: Surgical Incision Dressing Change: Dry Sterile Dressing Therapies Weight Bearing: Weight bearing as tolerated Extremity Affected:: Bilateral Lower Physical Therapy: Eval and Treat Occupational Therapy: Eval and Treat Speech Therapy: Eval and Treat Problem/Diagnosis (1) Debility: Status: Acute Code(s): R53.81 - Other malaise (2) Fall: Status: Acute Code(s): W19.XXXA - Unspecified fall, initial encounter (3) SDH (subdural hematoma): Status: Acute Code(s): S06.5XAA - Traumatic subdural hemorrhage with loss of consciousness status unknown, initial encounter (4) AAA (abdominal aortic aneurysm): Status: Acute Code(s): I71.40 - Abdominal aortic aneurysm, without rupture, unspecified (5) Essential (primary) hypertension: Status: Acute Code(s): I10 - Essential (primary) hypertension (6) Coronary artery disease: Status: Acute Code(s): I25.10 - Atherosclerotic heart disease of [place] coronary artery without angina pectoris (7) Vitamin D deficiency: Status: Acute Code(s): E55.9 - Vitamin D deficiency, unspecified (8) Vitamin B12 deficiency: Status: Acute Code(s): E53.8 - Deficiency of other specified B group vitamins (9) Inflammatory polyarthropathy: Status: Acute Code(s): M06.4 - Inflammatory polyarthropathy (10) Macular degeneration: Status: Acute Code(s): H35.30 - Unspecified macular degeneration (11) Hyperlipidemia: Status: Acute Code(s): E78.5 - Hyperlipidemia, unspecified (12) BPH (benign prostatic hyperplasia): Status: Acute Code(s): N40.0 - Benign prostatic 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 lower urinary tract symptoms Plan 89 year old male with below past medical history hospitalized for fall, closed head injury, right parafalcine SDH, no surgery recommended, admitted to TCU with debility, here for rehabilitation, strengthening, prior to discharge home with . Debility - PT/OT. Pain - Tylenol 1000mg q8. Bowel - senna/colace 2 tablets bid. Adult immunization - Administer pneumonia vaccine, covid vaccine, flu vaccine as appropriate. DVT prophylaxis - Hold, SDH. SDH - No surgery recommended. Expressive aphasia - Resident had expressive aphasia upon arrival, CT head without contrast showed no acute changes, monitor. Vitamin D deficiency - Vitamin D 125mcg daily. Folate deficiency - Folic acid 2mg daily. Seizure prophylaxis - Keppra 500mg po bid thru 08/11/2025. Skin irritation - Calmoseptine topical bid. Hypertension - Metoprolol 25mg bid. Conjunctivitis - Maxitrol 1gtt OD q12 thru 08/16/2025. GERD - Pantoprazole 40mg daily. Hyperlipidemia - Pravastatin 40mg qhs. The following psychotropic medication was present on admission: Escitalopram 5mg daily. Psychotropic medication therapy is indicated for a diagnosis of: Major Depression. Based on my clinical evaluation, continuation of the medication is necessary at this time. Gradual dose reduction plan (select one): ____ GDR will be attempted. Will monitor patient symptoms and behaviors in response to GDR. __x__ GRD contraindicated. Reason contraindicated: stable chronic emt intermediate use. Allergies/Procedures Done in Hospital Allergies No Known Allergies Allergy (Verified 06/17/25 14:33) Procedures: None Type of Care/Length of Stay Estimated LOS: More Than 30 Days Type of Care Needed: Intermediate Rehab Potential: Good Prognosis: Good Additional Orders/Day of Discharge Additional Orders: part B therapies Day of Discharge: 09/10/25 Dietary and Speech Recommendations Dietitian Recommendations/Changes: Will continue liberal Regular diet w/ consistency per MEDIA SERVICES DIRECTOR d/t signs/symptoms of malnutrition Will continue 8 oz vanilla EPHP tid w/ meals and fortified foods w/ all meals as able for increased nutrition if consumed. If wt loss / poor po intake continue, then rec reimplement bolus TF if intake <50%. Res wants to hold off on this for now - will reconsider at time of follow up. Follow Up Care Please Follow Up With: Varghese Welch MD When: After discharge from [facility]. Please Follow Up With: Modified Barium Swallow Study Discharge Plan Admission Admit Date/Time: 08/09/25 15:50 Primary Reason for Your Visit: Debility. Attending Provider: Jesus Alberto Wiggins Chi Primary Care Provider: Devan Welch Instructions Additional Instructions / Restrictions: Discharge 09/10/2025 to [facility], intermediate, part B therapies. Discharge Orders/Prescriptions Prescriptions: New acetaminophen 500 mg Tablet 1,000 mg PO Q8 Qty: 0 0RF amlodipine 5 mg Tablet 5 mg PO DAILY Qty: 0 0RF carboxymethylcellulose sodium [Refresh Tears] 0.5 % Drops 1 drp EACH EYE Q1H PRN (Reason: DRY EYES) Qty: 0 0RF lansoprazole 15 mg Capsule,Delayed Release(Dr/Ec) 15 mg PO DAILY Qty: 0 0RF menthol [Blue Gel] 2 % Gel 1 applic topical TID Qty: 0 0RF menthol-zinc oxide [Calmoseptine] 0.44-20.6 % Ointment 1 applic topical BID Qty: 0 0RF Protocol: *Topical Application Instructions APPLICATION INSTRUCTIONS: bilateral buttocks Continued sennosides-docusate sodium [Docuzen] 8.6-50 mg tablet 2 tab-cap PO BID escitalopram oxalate 5 mg tablet 5 mg PO DAILY cholecalciferol (vitamin D3) 125 mcg (5,000 unit) Capsule 125 mcg PO DAILY Qty: 0 0RF pravastatin 40 mg Tablet 40 mg PO QHS Qty: 0 0RF folic acid 1 mg Tablet 2 mg PO DAILY Qty: 0 0RF metoprolol tartrate 25 mg Tablet 25 mg PO BID Qty: 0 0RF Discontinued menthol-zinc oxide [CalaSoothe] 0.44-20.6 % ointment 1 applic topical BID levetiracetam [Keppra] 500 mg tablet 500 mg PO BID lisinopril 5 mg tablet 5 mg PO DAILY neomycin-polymyxin B-dexameth [Maxitrol] 3.5mg/mL-10,000 unit/mL-0.1 % drops,suspension 1 drp RIGHT EYE Q12H acetaminophen 500 mg Tablet 975 mg PO Q8 amitriptyline 10 mg tablet 10 mg PO QHS aspirin 81 mg tablet 81 mg PO DAILY benazepril 40 mg tablet 40 mg feeding tube DAILY cyanocobalamin (vitamin B-12) 1,000 mcg capsule 1,000 mcg PO DAILY omeprazole 40 mg capsule,delayed release(DR/EC) 40 mg PO DAILY Healthy Eyes SuperVision 4,296 mcg-226 mg-90 mg capsule 1 cap PO DAILY methotrexate sodium 2.5 mg Tablet 20 mg PO Q7D Qty: 0 0RF pantoprazole 40 mg Tablet,Delayed Release (Dr/Ec) 40 mg PO DAILY 30 Days Qty: 30 0RF doxazosin 4 mg Tablet 4 mg PO QHS 30 Days Qty: 30 0RF cholestyramine (with sugar) 4 gram Powder In Packet 1 ea PO BIDAC 30 Days Qty: 60 0RF Referrals / Follow Up: Devan Welch MD [Primary Care Provider, Family Practice] Disposition Disposition (needs filled in before D/C Order can be placed): NonSkilled NH/Intermed Care
[2025-09-04 21:30] VITALS: PULSE 73; RESP 16; O2SAT 96
[2025-09-04 21:34] VITALS: BP 135/67; PULSE 73
[2025-09-05] MEDS: CARBOXYMETHYLCELLULOSE SODIUM 15 ML OPHTH DROPS 1 DRP EACH EYE ×2 (06:19→21:36)
[2025-09-05 06:36] VITALS: PULSE 64; RESP 16; O2SAT 95
[2025-09-05 08:51] VITALS: BP 116/66; PULSE 71; RESP 18; TEMP 36.6; O2SAT 96
[2025-09-05] MEDS: MENTHOL 226.8 GM JAR 1 APPLIC TOPICAL ×3 (08:55→21:38)
[2025-09-05 09:01] VITALS: PULSE 71
[2025-09-05] MEDS: Cholecalciferol (Vit D3) 125 MCG CAPSULE (5,000 UNITS) PO (09:01)
[2025-09-05] MEDS: Senna/Docusate Sodium 1 Tablet 2 TABLET PO (09:02)
[2025-09-05 21:37] VITALS: BP 129/72; PULSE 81
[2025-09-06] MEDS: CARBOXYMETHYLCELLULOSE SODIUM 15 ML OPHTH DROPS 1 DRP EACH EYE ×2 (06:13→21:03)
[2025-09-06] MEDS: MENTHOL 226.8 GM JAR 1 APPLIC TOPICAL ×3 (06:15→21:03)
[2025-09-06 08:58] VITALS: BP 117/63; PULSE 74; RESP 18; O2SAT 94
[2025-09-06 08:59] VITALS: PULSE 74
[2025-09-06] MEDS: Senna/Docusate Sodium 1 Tablet 2 TABLET PO ×2 (08:59→21:02)
[2025-09-06] MEDS: Cholecalciferol (Vit D3) 125 MCG CAPSULE (5,000 UNITS) PO (09:00)
[2025-09-06 21:02] VITALS: BP 119/64; PULSE 69
[2025-09-06 22:00] VITALS: PULSE 69; RESP 16; O2SAT 95
[2025-09-07] MEDS: MENTHOL 226.8 GM JAR 1 APPLIC TOPICAL ×3 (05:58→20:00)
[2025-09-07 06:16] VITALS: PULSE 68; RESP 18; O2SAT 95
[2025-09-07 09:31] VITALS: BP 118/60; PULSE 83
[2025-09-07] MEDS: Cholecalciferol (Vit D3) 125 MCG CAPSULE (5,000 UNITS) PO (09:32)
[2025-09-07] MEDS: Senna/Docusate Sodium 1 Tablet 2 TABLET PO (09:39)
[2025-09-07 10:59] VITALS: BP 118/60; PULSE 84; RESP 16; TEMP 36.9; O2SAT 95
--- NOTE | 2025-09-07 12:40 | CASEMGMT ---
Social Work PASRR completed in [facility]. DC paperwork and updated clinicals sent to [facility]. Alondra Rutherford [employer]
[2025-09-07 19:59] VITALS: BP 125/59; PULSE 65
[2025-09-07] MEDS: CARBOXYMETHYLCELLULOSE SODIUM 15 ML OPHTH DROPS 1 DRP EACH EYE (20:00)
[2025-09-07 20:12] VITALS: BP 125/59; PULSE 65
--- NOTE | 2025-09-07 20:57 | NURSING ---
Flushed PEG per order. Tubing patent and free of kinks/obstructions.
[2025-09-08] MEDS: MENTHOL 226.8 GM JAR 1 APPLIC TOPICAL ×3 (05:20→20:49)
[2025-09-08] MEDS: CARBOXYMETHYLCELLULOSE SODIUM 15 ML OPHTH DROPS 1 DRP EACH EYE ×2 (05:22→20:49)
--- NOTE | 2025-09-08 05:25 | NURSING ---
Flushed PEG per order. Tubing patent, free of kinks/obstructions.
[2025-09-08 09:14] VITALS: BP 127/69; PULSE 76
[2025-09-08] MEDS: Cholecalciferol (Vit D3) 125 MCG CAPSULE (5,000 UNITS) PO (09:15)
[2025-09-08] MEDS: Senna/Docusate Sodium 1 Tablet 2 TABLET PO (09:19)
[2025-09-08 09:22] VITALS: BP 127/69; PULSE 76; RESP 16; TEMP 36.1; O2SAT 97
[2025-09-08 11:24] VITALS: BMI 22.4
--- NOTE | 2025-09-08 14:09 | NURSING ---
PEG FLUSHED 30CC PER ORDER. NO KINKS IN TUBING,FLOWS WELL. CLEANED AND DRESSING CHANGED TO PEG SITE. PT TOLERATED WELL.
[2025-09-08 14:20] VITALS: PULSE 76; RESP 16; O2SAT 97
[2025-09-08 20:55] VITALS: BP 114/53; PULSE 67
[2025-09-08 21:03] VITALS: BP 114/53; PULSE 67
--- NOTE | 2025-09-08 21:05 | NURSING ---
Flushed PEG per order. Tubing patent and free of kinks/obstructions.
[2025-09-09 03:46] VITALS: PULSE 62; RESP 16; O2SAT 98
[2025-09-09] MEDS: MENTHOL 226.8 GM JAR 1 APPLIC TOPICAL ×3 (05:00→22:08)
[2025-09-09] MEDS: CARBOXYMETHYLCELLULOSE SODIUM 15 ML OPHTH DROPS 1 DRP EACH EYE ×2 (05:01→22:09)
[2025-09-09 10:41] VITALS: BP 125/59; PULSE 71
[2025-09-09] MEDS: Cholecalciferol (Vit D3) 125 MCG CAPSULE (5,000 UNITS) PO (10:42)
[2025-09-09] MEDS: Senna/Docusate Sodium 1 Tablet 2 TABLET PO (10:47)
[2025-09-09 11:36] VITALS: BP 125/55; PULSE 71; RESP 16; TEMP 36.6; O2SAT 94
[2025-09-09 22:06] VITALS: BP 133/69; PULSE 70
[2025-09-09 22:08] VITALS: PULSE 70
[2025-09-10] MEDS: MENTHOL 226.8 GM JAR 1 APPLIC TOPICAL (05:57)
--- NOTE | 2025-09-10 08:58 | CASEMGMT ---
Social Work- SW met with pt to complete MDS BIMS assessment () and PHQ9 (0/2). SW introduced self and role; pt agreeable to meet. Pt pleasant and cooperative in demeanor. Pt reports no needs at this time. Pt reports that he will be d/c to [facility] soon and is looking forward to being closer to home. SW remains available to follow. HAZEL Puentes
[2025-09-10 09:06] VITALS: BP 134/73; PULSE 77
[2025-09-10] MEDS: Cholecalciferol (Vit D3) 125 MCG CAPSULE (5,000 UNITS) PO (09:07)
[2025-09-10] MEDS: CARBOXYMETHYLCELLULOSE SODIUM 15 ML OPHTH DROPS 1 DRP EACH EYE (09:07)
[2025-09-10 09:15] VITALS: BP 134/73; PULSE 77; RESP 16; TEMP 36.4; O2SAT 95
[2025-09-10 10:00] VITALS: PULSE 77; RESP 16; O2SAT 95
[2025-09-10 11:32] VITALS: BP 134/73; PULSE 77; RESP 16; TEMP 36.4; O2SAT 95
== END 2025-09-10 10:50 | DRG 949 ==
PROVIDERS: Admitting Provider Family Medicine Geriatric Medicine; PCP Family Medicine; Visit Provider Family Medicine Geriatric Medicine
DX: S06.5XAD Traumatic subdural hemorrhage with loss of consciousness status unknown, subsequent encounter (principal); B37.0 Candidal stomatitis; E44.0 Moderate protein-calorie malnutrition; M06.4 Inflammatory polyarthropathy; I10 Essential (primary) hypertension; F32.9 Major depressive disorder, single episode, unspecified; I71.40 Abdominal aortic aneurysm, without rupture, unspecified; E53.8 Deficiency of other specified B group vitamins; I25.10 Atherosclerotic heart disease of native coronary artery without angina pectoris; E55.9 Vitamin D deficiency, unspecified; K21.9 Gastro-esophageal reflux disease without esophagitis; E78.5 Hyperlipidemia, unspecified; H10.9 Unspecified conjunctivitis; W19.XXXD Unspecified fall, subsequent encounter; N40.0 Benign prostatic 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 lower urinary tract symptoms; Z87.891 Personal history of nicotine dependence; Z79.899 Other long term (current) drug therapy; Z79.82 Long term (current) use of aspirin; S09.90XD Unspecified injury of head, subsequent encounter; Z68.22 Body mass index [BMI] 22.0-22.9, adult
CPT/HCPCS: 36415; 71101; 73502; 80048; 81001; 85025; 87086; 87088; 87811; 92507; 92523; 92526; 92610; 97110; 97116; 97162; 97166; 97530; 97535; 97802

== ENCOUNTER → 2025-08-09 | Outpatient (CLI) | payer MEDICARE, OTHER, SELFPAY ==
--- OUTSIDE RECORDS SUMMARY | 2025-08-09 17:13 | XMS RPT_ITS | CCD ---
Author Organization [facility] CliniSyny Care Team Providers Care Tracer Powder Blender Name Role Phone Don Barrera Unavailable Don [...] Unavailable Unavailable Barrera Christopher D Unavailable Unavailable [facility] NURSE, [id number] Unavailable Unavailable Colindres II, Robb Unavailable Unavailable Melody Joseph Unavailable Unavailable Gracie Al Unavailable Unavailable Dew, Santy Unavailable Unavailable Christo, Martine Unavailable Unavailable HEATHER PAREDES Admitting Unavailable HEATHER PAREDES Referring Unavailable DON BARRERA Primary Care Unavaila ble Don Barerra Unavailable Unavailable Don Barrera Primary Care Provider Vijay Viveros Unavailable [phone] Don Barrera MD Unavailable Unavailable Don Barrera [...] [phone] Don Barrera MD Unavailable [phone] Holly, Dr. Don Chaudhry Primary Care Unav ailable Holly, Dr. Don Chaudhry Attending Omairav coral Adams, Ms. Hieke Dickens Attending Donnie Barrera, Dr. Don Chaudhry [...] Don Barrera MD Primary Care Provider SANCHO JR., ELADIO Attending Unavailable BARRERA, LIVERMORE GRACIE Primary Care Unavaila ble [facility], [facility] Primary Care Unavaila ble SANCHO JR., ELADIO Attending Unavailable BARRERA, LIVERMORE GRACIE Primary Care Unavaila ble SANCHO JR., ELADIO Attending Unavailable BARRERA, LIVERMORE GRACIE Primary Care Unavaila ble SANCHO JR., ELADIO Attending Unavailable TEEPLES, LINCOLN ILIANA Attending Unavailable TEEPLES, LINCOLN ILIANA Admitting Unavailable BARRERA, LIVERMORE GRACIE Primary Care Unavaila ble Barrera , Dr. Hartman Primary Care Provider Feliciano SEVILLA, Dr. Jesus Alberto Pereira Admit Provider Feliciano SEVILLA, Dr. Jesus Alberto Pereira Attending Provider Feliciano SEVILLA, Dr. Jesus Alberto Pereira Referring Provider Holly SEVILLA, Dr. Hartman Referring Provider [phone] Friend , Dr. Pierce Attending Provider Josias MEDINA, Dr. Pierce Other Provider [phone] Feliciano SEVILLA, Dr. Jesus Alberto Pereira Other [...] Unavailable Feliciano, Jesus Alberto Chi Consulting Unavailable Friend, Stan Attending Unavailable Feliciano, Jesus Alberto Chi Referring Unavailable Barrera , Dr. Hartman Primary Care Physician Feliciano SEVILLA, Dr. Jesus Alberto Pereira Admitting Physician [phone] Feliciano SEVILLA, Dr. Jesus Alberto Pereira Attending Physician Friend , Dr. Pierce Attending Physician Josias MEDINA, Dr. Pierce Nurse Practitioner Feliciano SEVILLA, Dr. Jesus Alberto Pereira Nurse Practitioner Emily SEVILLA, Dr. Chi Attending Physician HOLLY CHRISTOPHER D Attending Unavailable BARRERA, CHRISTOPHER D [...] Primary Care Unavailable CHRISTINELINCOLN E Attending Unavailable CHRISTINELINCOLN E Referring Unavailable BARRERA, CHRISTOPHER D Primary Care Unavailable BARRERA, CHRISTOPHER D Referring Unavailable BARRERA, CHRISTOPHER D Primary Care Unavailable BARRERA, CHRISTOPHER D Referring Unavailable BARRERA, CHRISTOPHER D Primary Care Unavailable BARRERA, CHRISTOPHER D Primary Care Unavailable SANTIAGO MENENDEZ Attending Unavailable BARRERA, CHRISTOPHER D Primary Care Unavailable SANTIAGO MENENDEZ Attending Unavailable Don Barrera MD Unavailable [phone] Don Barrera MD Primary Care Provider Daryl Dyson Unavailable Unavailable BARRERA, CHRISTOPHER D Primary Care Unavailable BARRERA, CHRISTOPHER D Primary Care Unavailable SANTIAGO MENENDEZ Referring Unavailable CHICO NAVARRO Consulting Unavailable VIJAY MARK Admitting Unavailable VIJAY MARK Attending Unavailable SANTIAGO MENENDEZ Referring Unavailable DON BARRERA Primary Care Unavailable FATOU ADORNO Consulting Unavailable KRISTY GIRALDO Admitting Unavailable RUSSELL MONTOYA Attending Unavailable DON BARRERA Primary Care Unavailable DON BARRERA Primary Care Unavailable LEONARDO BERGER Referring Unavailable DON BARRERA [...] Start: 07-10-2025 take 2 tablets by mo [facility] every eight hours Start: 05-20-2025 [...] at Discharge) take 3000 [IU] by mo [facility] once daily ACETAMINOPHEN (TYLENOL EXTRA [...] ascorbic acid 226 mg / beta carotene 73656 unt / cuprous oxide 0.8 mg / [...] Start: 07-10-2025 take 1 capsule by mo [facility] once daily Start: 05-20-2025 End: [...] / neomycin 3.5 mg/ml / polymyxin b 40959 unt/ml ophthalmic suspension (2 sources) Aminoglycoside Antibacterial, [...] days docusate sodium 50 mg / sennosides, assisted 8.6 mg oral tablet (3 sources) Start: [...] Arthritis Start: 04-07-2020 take 8 tablets by [facility] every week methotrexate (Trexall) 2.5 mg tablet Take 8 tablets (20 mg total) by mouth 1 (one) time per week. On Sundays04/07/2020 Active Start: 04-07-2020 take 7 tablets by [facility] every week Methotrexate 2.5 MG Oral Tablet TAKE 7 TABLETS PER WEEK. Quantity: 0 Refills: 0 Ordered: 07-Apr-2020 DO Start : 07-Apr-2020 Active Start: 04-07-2020 take 6 tablets by [facility] every week methotrexate (Trexall) 2.5 mg tablet Take 6 tablets (15 mg total) by mouth 1 (one) time per week. 04/07/2020 Active Start: 09-29-2016 take 1 tablet by [facility] every week methotrexate 2.5 mg tablet Take 2.5 mg by mouth once each week. 0 09/29/2016 Active take 6 tablets by mo [facility] every week Trexall 5 MG Oral Tablet TAKE 6 TABLET Weekly Refills: 0 DO Active take 3 tablets by mo [facility] every week methotrexate 2.5 MG [...] 3 07/31/2025 07/31/2026 Active Start: 09-08-2014 omeprazole (AZ ILOSEC) 20 mg capsule 20 mg once [...] PHENYLephrine 2.5 % 1 Drop ( AK-DILATE, JEFFERY-SYNEPHRINE) polyethylene glycol 3350 10182 mg powder for oral solution (19 sources) [...] BEDTIME May 20, 2025 12:00am Constipation sennosides, assisted 8.6 mg oral tablet (5 sources) Start: [...] Start: 05-20-2025 take 1 capsule by mo [facility] once daily Start: 05-13-2025 End: 05-16-2025 1,000 mcg, nasoduodenal tube , Daily, First dose (after last modification) on 05/16/25 at 0900 Vitamins A,C,U-Drmp-Rponuo (Healthy Eyes Supervision) 4,296 mcg-226 mg-90 mg [...] Comment on above: [facility] amLODIPine 5 mg oral tablet [...] 1356, For 1 dose barium sulfate (Varibar [place]) 40 % (w/v) suspension 30 mL (2 [...] at 1405, For 1 dose flu vacc [id number], 65yr up,-PF (Fluzone High-Dose Quad) syringe (3 sources) Start: 07-16-2023 End: 09-28-2023 flu vacc [id number], 65yr up,-PF (Fluzone High-Dose Quad) syringe INJECT DIRECTED .7 mL 0 07/16/2023 09/28/2023 Discontinued (Med List Cleanup) Start: 07-16-2023 End: 07-15-2024 flu vacc [id number], 65yr up, -PF (Fluzone High-Dose Quad) syringe [...] Start: 09-18-2022 take 2 tablets by mo [facility] once daily predniSONE 20 MG [...] Daily Quantity: 180 Refills: 3 Ordered: 27-Oct-2022 Holly SEVILLA, Don Active technetium (Tc-99m) tetrofosmin (Tc-MYOVIEW) [...] heart disease (20 sources) Coronary arteriosclerosis in [place] artery; Translations: [Coronary arteriosclerosis] Onset: 6 06-05-2016 [...] disorder; Translations: [Unspecified essential hypertension] Onset: Chronic Genitourinary symptoms and ill-defined conditions (20 [...] 8 07-16-2019 Chronic Other aftercare (1 source) group home (current) use of aspirin; Translations: [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] Onset: 3 Episodic [...] fractures of pelvis with disruption of pelvic [place]; Translations: [Multiple fractures of pelvis with stable [...] sacrum, initial encounter for closed fracture] Onset: Episodic Other fractures (2 sources) Unspecified fracture of sacrum, sequela; Translations: [Unspecified fracture of sacrum, sequela] Onset: Episodic Other fractures (2 sources) Multiple fractures [...] oropharyngeal phase; Translations: [Dysphagia, oropharyngeal phase] Onset: Episodic Other gastrointestinal disorders (4 sources) Dysphagia, unspecified; Translations: [Dysphagia, unspecified] Onset: 5 Episodic Other injuries and conditions due to external causes (3 sources) Unspecified injury of head, initial encounter; Translations: [Unspecified injury of head, initial encounter] Onset: Episodic Other injuries and conditions due to [...] right side, initial encounter for open fracture ([facility])] Onset: 5 Unclassified (2 sources) Fracture of orbital roof, unspecified side, sequela; Translations: [Fracture of orbital roof, unspecified side, sequela] Onset: 5 Unclassified (1 source) Traumatic subdural hemorrhage with loss of consciousness status unknown, initial encounter ([facility]); Translations: [Traumatic subdural hemorrhage with loss of consciousness status unknown, initial encounter ([facility])] Onset: 5 Unclassified (1 source) Abdominal aortic aneurysm, without rupture, unspecified ([facility]); Translations: [Abdominal aortic aneurysm, without rupture, unspecified ([facility])] Onset: 3 Unclassified (2 sources) Fracture of orbit, unspecified, initial encounter for closed fracture; Translations: [Fracture of orbit, unspecified, initial encounter for closed fracture (Multi)] Onset: 5 Past or Other [...] unspecified; Translations: [Anemia, unspecified] Onset: 11-20-2024 Episodic Mycoses (20 sources) Onychomycosis; Translations: [Tinea unguium] Onset: 05-13-2021 Episodic Other aftercare (3 sources) 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; Translations: [Other fdc (current) drug therapy] Onset: 03-10-2023 Episodic Other [...] loss of consciousness status unknown, initial encounter ([facility]); Translations: [Traumatic subdural hemorrhage with loss of consciousness status unknown, initial encounter ([facility])] Onset: 07-17-2025 Unclassified (1 source) Abdominal aortic aneurysm, without rupture, unspecified ([facility]); Translations: [Abdominal aortic aneurysm, without rupture, unspecified ([facility])] Onset: 11-20-2024 Viral infection (15 sources) COVID-19; Translations: [COVID-19 virus detected] Onset: 10-11-2021 Episodic NEGATED: Highlighted row has not occurred!Residual codes; unclassified (20 sources) Disease Episodic Results Test Name Value Interpretation Reference Range Facility 25-hydroxyvitamin D3 [Mass/V ol]on 08-06-2025 Interpretation and review of laboratory results Normal [facility] Deficiency: < 20 ng/ ml Insufficiency: 20-29 ng/ml Sufficiency: 30-100 ng/ml This assay accurately quantifies the sum of Vitamin D3, 25-Hydroxy and Vitamin D2,25-Hydroxy. [facility] CBC panel Auto (Bld)on 08-06 Erythrocyte distribution width (RBC) [Ratio] 12.7 % 11.5 - 14.5 % [facility] Hematocrit (Bld) [Volume fraction] 42.2 % 41.0 - 52.0 % [facility] Hemoglobin (Bld) [Mass/Vol] 13.1 g/dL Low 13.5 - 17.5 g/dL [facility] Interpretation and review of laboratory results Abnormal [facility] MCH (RBC) [Entitic mass] 30.8 pg 26.0 - 34.0 pg [facility] MCHC (RBC) [Mass/Vol] 31.0 g/dL Low 32.0 - 36.0 g/dL [facility] MCV (RBC) [Entitic vol] 99 fL 80 - 100 fL [facility] Nucleated RBC/100 WBC (Bld) [Ratio] 0.0 % [facility] Platelets (Bld) [#/Vol] 239 10*3/uL [facility] RBC (Bld) [#/Vol] 4.25 10*6/uL [facility] WBC (Bld) [#/Vol] 7.3 10*3/uL [facility] Erythrocyte distribution width (RBC) [Ratio] 12.7 % Normal 11.5-14.5 [facility] Comment on above: Performed By: #### T HYDS #### KALIN OSBORN ([id number]) [facility] ([facility]) [address] [place] [address] 87854 Hematocrit (Bld) [Volume fraction] 42.2 % Normal 41.0-52.0 [facility] Comment on above: Performed By: #### T HYDS #### KALIN OSBORN ([id number]) [facility] ([facility]) [address] [place] [address] 35007 Hemoglobin (Bld) [Mass/Vol] 13.1 g/dL Low 13.5-17.5 [facility] Comment on above: Performed By: #### T HYDS #### KALIN OSBORN ([id number]) [facility] ([facility]) [address] [place] [address] 63254 MCH (RBC) [Entitic mass] 30.8 pg Normal 26.0-34.0 [facility] Comment on above: Performed By: #### T HYDS #### KALIN OSBORN ([id number]) [facility] ([facility]) [address] [place] [address] 46436 MCHC (RBC) [Mass/Vol] 31.0 g/dL Low 32.0-36.0 [facility] Comment on above: Performed By: #### T HYDS #### KALIN OSBORN ([id number]) [facility] ([facility]) [address] [place] [address] MCV (RBC) [Entitic vol] 99 fL Normal 80-100 [facility] Comment on above: Performed By: #### T HYDS #### KALIN OSBORN ([id number]) [facility] ([facility]) [address] [place] [address] 45605 Nucleated RBC/100 WBC (Bld) [Ratio] 0.0 /100 WBCs Normal 0.0-0.0 [facility] Comment on above: Performed By: #### T HYDS #### KALIN OSBORN ([id number]) [facility] ([facility]) [address] [place] [address] 85516 Platelets (Bld) [#/Vol] 239 x10*3/uL Normal 150-450 [facility] Comment on above: Performed By: #### T HYDS #### KALIN OSBORN ([id number]) [facility] ([facility]) [address] [place] [address] 73060 RBC (Bld) [#/Vol] 4.25 x10*6/uL Low 4.50-5.90 [facility] Comment on above: Performed By: #### T HYDS #### KALIN OSBORN ([id number]) [facility] ([facility]) [address] [place] [address] 84197 WBC (Bld) [#/Vol] 7.3 x10*3/uL Normal 4.4-11.3 [facility] Comment on above: Performed By: #### T HYDS #### KALIN OSBORN ([id number]) [facility] ([facility]) [address] [place] [address] Calcidiolon 08-06-2025 25-hydroxyvitamin D3 [Mass/Vol] 44 ng/mL Normal 30-100 [facility] Comment on above: Order Comment: TSH t esting is performed using different testing methodology at [facility] than at other [facility]. Direct result comparisons should only be made within the same method. Performed By: #### T JAHAIRAS #### KALIN OSBORN ([id number]) [facility] ([facility]) [facility] [place] [id number] Cobalamin (Vitamin B12) [Mas s/Vol]on 08-06-2025 Interpretation and review of laboratory results Abnormal [facility] Cobalaminson 08-06-2025 Cobalamin (Vitamin B12) [Mass/Vol] 1043 pg/mL High 211-911 [facility] Comment on above: Performed By: #### T HYDS #### KALIN OSBORN ([id number]) [facility] ([facility]) [facility] [place] [id number] Magnesiumon 08-06-2025 Magnesium [Mass/Vol] 2.02 mg/dL 1.60 - 2.40 mg/dL [facility] Magnesium [Mass/Vol] 2.02 mg/dL Normal 1.60-2.40 [facility] Comment on above: Performed By: #### T HYDS #### KALIN OSBORN ([id number]) [facility] ([facility]) [address] [place] [address] 02808 Magnesium [Mass/Vol]on 08-06 Interpretation and review of laboratory results Normal [facility] No Panel Informationon 08-06 [facility] RF videography Hypopharynx a nd Esophagus Views for swallowing function W speech and W barium contrast Julito 08-06-2025 Interpreted By: Terry Ireland and Tom Ortega STUDY: [place] MODIFIED BARIUM SWALLOW STUDY;; 08/06/2025 8:38 am INDICATION: Signs/Symptoms:eval for aspiration, dysphagia. COMPARISON: None. ACCESSION NUMBER(S): [id number] ORDERING CLINICIAN: ELAINE MADRIGAL TECHNIQUE: MBSS completed. Informed verbal consent obtained prior to completion of exam. Trials of thin, nectar thick, honey thick, puree, soft-solids, and regular solids given. MINT MACHINE OPERATOR: Shannon Santos Phone/Pager: [phone] SPEECH FINDINGS: Speech-Language Pathology Inpatient Modified Barium Swallow Study Patient Name: Fawn Brown" : 1935 Today's Date: 08/06/25 Start Time: 800 Stop Time: 830 Time Calculation (min): 30 Modified Barium Swallow Study completed. Informed verbal consent obtained prior to completion of exam. Trials of thin liquids via tsp/straw, mildly (nectar) thick liquids via straw, moderately (honey) thick liquids via straw, and purees were given. MINT MACHINE OPERATOR: FLAVIA Humphrey Contact info: [employer] Reason for Referral: C/f aspiration/oropharynge al dysphagia Patient Hx: Fawn Brown" is a 89 y.o. 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 Respiratory Status: Room air Current diet: Easy to Chew Solids and Mildly ([place]) Thick Liquids; recommended at nursing facility, per [...] risk for aspiration regardless of any further MINT MACHINE OPERATOR intervention). MD aware. MINT MACHINE OPERATOR PLAN: Skilled MINT MACHINE OPERATOR Services: Skilled MINT MACHINE OPERATOR intervention for dysphagia is warranted. MINT MACHINE OPERATOR Frequency: pending GOC discussions Discussed POC: patient [...] given on all accounts. Treatment Provided Today: MINT MACHINE OPERATOR provided extensive education and training to pt/pt [...] for aspiration, dysphagia. COMPARISON: None. ACCESSION NUMBER(S): [id number] ORDERING CLINICIAN: ELAINE MADRIGAL TECHNIQUE: MBSS completed. Informed verbal consent obtained prior to completion of exam. Trials of thin, nectar thick, honey thick, puree, soft-solids, and regular solids given. MINT MACHINE OPERATOR: Shannon Santos Phone/Pager: [phone] SPEECH FINDINGS: Speech-Language Pathology Inpatient Modified Barium Swallow Study Patient Name: Fawn Brown" : 1935 Today's Date: 08/06/25 Start Time: 800 Stop Time: 830 Time Calculation (min): 30 Modified Barium Swallow Study completed. Informed verbal consent obtained prior to completion of exam. Trials of thin liquids via tsp/straw, mildly (nectar) thick liquids via straw, moderately (honey) thick liquids via straw, and purees were given. MINT MACHINE OPERATOR: Shannon Santos MINT MACHINE OPERATOR Contact info: [employer] Reason for Referral: C/f aspiration/oropharynge al dysphagia Patient Hx: Fawn Brown" is a 89 y.o. 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 Respiratory Status: Room air Current diet: Easy to Chew Solids and Mildly ([place]) Thick Liquids; recommended at nursing facility, per [...] risk for aspiration regardless of any further MINT MACHINE OPERATOR intervention). MD aware. MINT MACHINE OPERATOR PLAN: Skilled MINT MACHINE OPERATOR Services: Skilled MINT MACHINE OPERATOR intervention for dysphagia is warranted. MINT MACHINE OPERATOR Frequency: pending GOC discussions Discussed POC: patient [...] given on all accounts. Treatment Provided Today: MINT MACHINE OPERATOR provided extensive education and training to pt/pt [...] to observe the (more content not included)... [facility] Work Phone: Radiology Study observation (narrative) [facility] Work Phone: RF videography Hypopharynx a nd Esophagus Views for swallowing function W speech and W barium contrast POOrdered By: Terry Ireland on 08-06-2025 [facility] Work Phone: Renal function 2000 panelon 08-06-2025 Albumin BCP dye [Mass/Vol] 4.0 g/dL 3.4 - 5.0 g/dL [facility] Anion gap [Moles/Vol] 13 mmol/L 10 - 2 0 mmol/L [facility] Calcium [Mass/Vol] 8.9 mg/dL 8.6 - 10. 6 mg/dL [facility] Chloride [Moles/Vol] 102 mmol/L 98 - 10 7 mmol/L [facility] CO2 [Moles/Vol] 26 mmol/L 21 - 32 mmol/L [facility] Creatinine [Mass/Vol] 0.72 mg/dL 0.50 - 1.30 mg/dL [facility] GFR/1.73 sq M.predicted among non-blacks MDRD (S/P/Bld) [Vol rate/Area] 87 mL/min/{1.73_m2} - PINF [facility] Comment on above: Calculations of leonides mated GFR are performed using the 2020 CKD-EPI Study Refit equation without the race variable for the IDMS-Traceable creatinine methods. https://jasn.asnjournals.org/content//ASN.75716 19412 Glucose [Mass/Vol] 105 mg/dL High 74 - 99 mg/dL [facility] Interpretation and review of laboratory results Abnormal [facility] Phosphate [Mass/Vol] 3.2 mg/dL 2.5 - 4 .9 mg/dL [facility] Potassium [Moles/Vol] 4.0 mmol/L 3.5 - 5.3 mmol/L [facility] Sodium [Moles/Vol] 137 mmol/L 136 - 145 mmol/L [facility] Urea nitrogen [Mass/Vol] 10 mg/dL 6 - 23 mg/dL [facility] Albumin BCP dye [Mass/Vol] 4.0 g/dL Normal 3.4-5.0 [facility] Comment on above: Performed By: #### T HYDS #### KALIN OSBORN ([id number]) [facility] ([facility]) [facility] [place] [address] Anion gap [Moles/Vol] 13 mmol/L Normal 10-20 [facility] Comment on above: Performed By: #### T HYDS #### KALIN OSBORN ([id number]) [facility] ([facility]) [address] [place] [address] 53285 Calcium [Mass/Vol] 8.9 mg/dL Normal 8.6-10.6 [facility] Comment on above: Performed By: #### T HYDS #### KALIN OSBORN ([id number]) [facility] ([facility]) [address] [place] [address] 00059 Chloride [Moles/Vol] 102 mmol/L Normal 98-107 [facility] Comment on above: Performed By: #### T HYDS #### KALIN OSBORN ([id number]) [facility] ([facility]) [address] [place] [address] 38199 CO2 [Moles/Vol] 26 mmol/L Normal 21-32 [facility] Comment on above: Performed By: #### T HYDS #### KALIN OSBORN ([id number]) [facility] ([facility]) [address] [place] [address] 19235 Creatinine [Mass/Vol] 0.72 mg/dL Normal 0.50-1.30 [facility] Comment on above: Performed By: #### T HYDS #### KALIN OSBORN ([id number]) [facility] ([facility]) [address] [place] [address] 79337 Glomerular filtration rate 87 mL/min/1.73m*2 Normal >60 [facility] Comment on above: Result Comment: Calc ulations of estimated GFR are performed using the 2020 CKD-EPI Study Refit equation without the race variable for the IDMS-Traceable creatinine methods. https://jasn.asnjournals.org/content//ASN.09225 16204 Performed By: #### T HYDS #### KALIN OSBORN ([id number]) [facility] ([facility]) [address] [place] [address] 69016 Glucose [Mass/Vol] 105 mg/dL High 74-99 [facility] Comment on above: Performed By: #### T HYDS #### KALIN OSBORN ([id number]) [facility] ([facility]) [address] [place] [address] 13356 Phosphate [Mass/Vol] 3.2 mg/dL Normal 2.5-4.9 [facility] Comment on above: Performed By: #### T HYDS #### KALIN OSBORN ([id number]) [facility] ([facility]) [address] [place] [address] 26808 Potassium [Moles/Vol] 4.0 mmol/L Normal 3.5-5.3 [facility] Comment on above: Performed By: #### T HYDS #### KALIN OSBORN ([id number]) [facility] ([facility]) [address] [place] [address] Sodium [Moles/Vol] 137 mmol/L Normal 136-145 [facility] Comment on above: Performed By: #### T HYDS #### KALIN OSBORN ([id number]) [facility] ([facility]) [address] [place] [address] Urea nitrogen [Mass/Vol] 10 mg/dL Normal 6-23 [facility] Comment on above: Performed By: #### T HYDS #### KALIN OSBORN ([id number]) [facility] ([facility]) [address] [place] [address]37[address] MINT MACHINE OPERATOR Modified Barium Swallow Evaluationon 08-06-2025 FLAVIA Humphrey 08/06/2025 9:15 AM Speech-Language Pathology Inpatient Modified Barium Swallow Study Patient Name: Fawn Cameron "Andres" : 1935 Today's Date: 08/06/25 Start Time: 800 Stop Time: 830 Time Calculation (min): 30 Modified Barium Swallow Study completed. Informed verbal consent obtained prior to completion of exam. Trials of thin liquids via tsp/straw, mildly (nectar) thick liquids via straw, moderately (honey) thick liquids via straw, and purees were given. MINT MACHINE OPERATOR: Shannon Santos MINT MACHINE OPERATOR Contact info: [employer] Reason for Referral: C/f aspiration/oropharynge al dysphagia Patient Hx: Fawn Brown" is a 89 y.o. 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 Respiratory Status: Room air Current diet: Easy to Chew Solids and Mildly ([place]) Thick Liquids; recommended at nursing facility, per [...] risk for aspiration regardless of any further MINT MACHINE OPERATOR intervention). MD aware. MINT MACHINE OPERATOR PLAN: Skilled MINT MACHINE OPERATOR Services: Skilled MINT MACHINE OPERATOR intervention for dysphagia is warranted. MINT MACHINE OPERATOR Frequency: pending GOC discussions Discussed POC: patient [...] given on all accounts. Treatment Provided Today: MINT MACHINE OPERATOR provided extensive education and training to pt/pt [...] further evaluation by medical specialists, as applicable. MINT MACHINE OPERATOR Impressions with Severity Rating: Pt awake/alert, consistently cooperative/able to follow commands, and responded appropriately to conversation/questions by MINT MACHINE OPERATOR. A&Ox4. Oral mechanism examination WNL. Of note, pt underwent initial MBSS during previous admission in April w/ recommendation of NPO w/ frequent aggressive oral care. 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 [facility] Work Phone: Vitamin B12on 08-06-2025 Cobalamin (Vitamin B12) [Mass/Vol] 1043 pg/mL High 211 - 911 pg/mL [facility] Vitamin D 25-Hydroxy,Total ( for eval of Vitamin D levels)on 08-06-2025 25-hydroxyvitamin D3 [Mass/Vol] 44 ng/mL 30 - 100 ng/mL [facility] Basic Metabolic Profile (BMP )on 08-05-2025 BUN Normal 4-19 [facility] Comment on above: Result Comment: Canc elled via OM: Order cancelled - Patient discharged Performed By: #### L 501.080 #### [facility] [address] [place], [address] BUN/CRE Normal 10-20 [facility] Comment on above: Result Comment: Canc elled via OM: Order cancelled - Patient discharged Performed By: #### L 501.080 #### [facility] [address] [place], [address] Calcium Normal 7.6-11.0 [facility] Comment on above: Result Comment: Canc elled via OM: Order cancelled - Patient discharged Performed By: #### L 501.080 #### [facility] [address] [place], [address] CL Normal 98-108 [facility] Comment on above: Result Comment: Canc elled via OM: Order cancelled - Patient discharged Performed By: #### L 501.080 #### [facility] [address] [place], [address] CO2 Normal 21.0-32.0 [facility] Comment on above: Result Comment: Canc elled via OM: Order cancelled - Patient discharged Performed By: #### L 501.080 #### [facility] [address] [place], [address] CREAT,SERUM Normal 0.70-1.20 [facility] Comment on above: Result Comment: Canc elled via OM: Order cancelled - Patient discharged Performed By: #### L 501.080 #### [facility] [address] [place], [address] eGFR Normal >60 [facility] Comment on above: Result Comment: Canc elled via OM: Order cancelled - Patient discharged Performed By: #### L 501.080 #### [facility] [address] [place], [address] GAP Normal 5-15 [facility] Comment on above: Result Comment: Canc elled via OM: Order cancelled - Patient discharged Performed By: #### L 501.080 #### [facility] [address] [place], [address] GLU Normal 70-99 [facility] Comment on above: Result Comment: Canc elled via OM: Order cancelled - Patient discharged Performed By: #### L 501.080 #### [facility] [address] [place], [address] Potassium Normal 3.3-5.1 [facility] Comment on above: Result Comment: Canc elled via OM: Order cancelled - Patient discharged Performed By: #### L 501.080 #### [facility] [address] [place], [address] Basic Metabolic Profile (BMP) Normal 133-145 [facility] Comment on above: Result Comment: Canc elled via OM: Order cancelled - Patient discharged Performed By: #### L 501.080 #### [facility] [address] [place], [address] CBC W/Diff, Automatedon 10-1 Absolute Neut Normal 2.0-7.7 [facility] Comment on above: Result Comment: Canc elled via OM: Order cancelled - Patient discharged Performed By: #### L 500.4050, L500.4100, L503.0106, L506.1001 #### [facility] [address] [place], [address] HCT Normal 40-54 [facility] Comment on above: Result Comment: Canc elled via OM: Order cancelled - Patient discharged Performed By: #### L 500.4050, L500.4100, L503.0106, L506.1001 #### [facility] [address] [place], [address] HGB Normal 13.0-16.5 [facility] Comment on above: Result Comment: Canc elled via OM: Order cancelled - Patient discharged Performed By: #### L 500.4050, L500.4100, L503.0106, L506.1001 #### [facility] [address] [place], [address] MCH Normal 27.0-32.0 [facility] Comment on above: Result Comment: Canc elled via OM: Order cancelled - Patient discharged Performed By: #### L 500.4050, L500.4100, L503.0106, L506.1001 #### [facility] [address] [place], [address] MCHC Normal 32-36 [facility] Comment on above: Result Comment: Canc elled via OM: Order cancelled - Patient discharged Performed By: #### L 500.4050, L500.4100, L503.0106, L506.1001 #### [facility] [address] [place], [address] MCV Normal 80-94 [facility] Comment on above: Result Comment: Canc elled via OM: Order cancelled - Patient discharged Performed By: #### L 500.4050, L500.4100, L503.0106, L506.1001 #### [facility] [address] [place], [address] NEUT% Normal 47-70 [facility] Comment on above: Result Comment: Canc elled via OM: Order cancelled - Patient discharged Performed By: #### L 500.4050, L500.4100, L503.0106, L506.1001 #### [facility] [address] [place], [address] PLT Normal 150-450 [facility] Comment on above: Result Comment: Canc elled via OM: Order cancelled - Patient discharged Performed By: #### L 500.4050, L500.4100, L503.0106, L506.1001 #### [facility] [address] [place], [address] RBC Normal 4.6-6.2 [facility] Comment on above: Result Comment: Canc elled via OM: Order cancelled - Patient discharged Performed By: #### L 500.4050, L500.4100, L503.0106, L506.1001 #### [facility] [address] [place], [address] RDW CV Normal 11.6-14.6 [facility] Comment on above: Result Comment: Canc elled via OM: Order cancelled - Patient discharged Performed By: #### L 500.4050, L500.4100, L503.0106, L506.1001 #### [facility] [address] [place], [address] RDW SD Normal 35.1-43.9 [facility] Comment on above: Result Comment: Canc elled via OM: Order cancelled - Patient discharged Performed By: #### L 500.4050, L500.4100, L503.0106, L506.1001 #### [facility] [address] [place], [address] WBC Normal 4.4-11.0 [facility] Comment on above: Result Comment: Canc elled via OM: Order cancelled - Patient discharged Performed By: #### L 500.4050, L500.4100, L503.0106, L506.1001 #### [facility] [address] [place], [address] FL MODIFIED BARIUM SWALLOW Yony Bergeron 08-05-2025 FL MODIFIED BARIUM SWALLOW STUDY Interpreted By: Terry Ireland, and Tom Ortega STUDY: FL MODIFIED BARIUM SWALLOW STUDY;; 08/06/2025 8:38 am INDICATION: Signs/Symptoms:eval for aspiration, dysphagia. COMPARISON: None. ACCESSION NUMBER(S): [id number] ORDERING CLINICIAN: ELAINE MADRIGAL TECHNIQUE: MBSS completed. Informed verbal consent obtained prior to completion of exam. Trials of thin, nectar thick, honey thick, puree, soft-solids, and regular solids given. MINT MACHINE OPERATOR: Shannon Santos Phone/Pager: [phone] SPEECH FINDINGS: Speech-Language Pathology Inpatient Modified Barium Swallow Study Patient Name: Fawn Brown" : 1935 Today's Date: 08/06/25 Start Time: 800 Stop Time: 830 Time Calculation (min): 30 Modified Barium Swallow Study completed. Informed verbal consent obtained prior to completion of exam. Trials of thin liquids via tsp/straw, mildly (nectar) thick liquids via straw, moderately (honey) thick liquids via straw, and purees were given. MINT MACHINE OPERATOR: Shannon Santos MINT MACHINE OPERATOR Contact info: [employer] Reason for Referral: C/f aspiration/oropharynge al dysphagia Patient Hx: Fawn Brown" is a 89 y.o. 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 Respiratory Status: Room air Current diet: Easy to Chew Solids and Mildly ([place]) Thick Liquids; recommended at nursing facility, per [...] risk for aspiration regardless of any further MINT MACHINE OPERATOR intervention). MD aware. MINT MACHINE OPERATOR PLAN: Skilled MINT MACHINE OPERATOR Services: Skilled MINT MACHINE OPERATOR intervention for dysphagia is warranted. MINT MACHINE OPERATOR Frequency: pending GOC discussions Discussed POC: patient [...] given on all accounts. Treatment Provided Today: MINT MACHINE OPERATOR provided extensive education and training to pt/pt [...] further evaluation by (more content not included)... [facility] Sterile Cupon 08-05-2025 Extra Tube Hold for add-ons. [facility] Work Phone: Comment on above: Auto resulted. [facility] Work Phone: Urine [place] TubeOrdered By: Reji Jay on 08-05-2025 Extra Tube [facility] Work Phone: [facility] Work Phone: Basic metabolic 2000 panelon 08-04-2025 Anion gap [Moles/Vol] 11 mmol/L 10 - 2 0 mmol/L [facility] Calcium [Mass/Vol] 8.9 mg/dL 8.6 - 10. 3 mg/dL [facility] Chloride [Moles/Vol] 107 mmol/L 98 - 10 7 mmol/L [facility] CO2 [Moles/Vol] 28 mmol/L 21 - 32 mmol/L [facility] Creatinine [Mass/Vol] 0.84 mg/dL 0.50 - 1.30 mg/dL [facility] GFR/1.73 sq M.predicted among non-blacks MDRD (S/P/Bld) [Vol rate/Area] 83 mL/min/{1.73_m2} - PINF [facility] Comment on above: Calculations of leonides mated GFR are performed using the 2020 CKD-EPI Study Refit equation without the race variable for the IDMS-Traceable creatinine methods. https://jasn.asnjournals.org/content//ASN.58377 84245 Glucose [Mass/Vol] 88 mg/dL 74 - 99 mg/dL [facility] Interpretation and review of laboratory results Normal [facility] Potassium [Moles/Vol] 4.0 mmol/L 3.5 - 5.3 mmol/L [facility] Sodium [Moles/Vol] 142 mmol/L 136 - 145 mmol/L [facility] Urea nitrogen [Mass/Vol] 15 mg/dL 6 - 23 mg/dL [facility] Anion gap [Moles/Vol] 11 mmol/L Normal 10-20 [facility] Comment on above: Performed By: #### 5 7021-8 #### KALIN OSBORN ([id number]) [facility] ([facility]) [address] [place] [address] 12887 Calcium [Mass/Vol] 8.9 mg/dL Normal 8.6-10.3 [facility] Comment on above: Performed By: #### 5 7021-8 #### KALIN OSBORN ([id number]) [facility] ([facility]) [address] [place] [address] 29144 Chloride [Moles/Vol] 107 mmol/L Normal 98-107 [facility] Comment on above: Performed By: #### 5 7021-8 #### KALIN OSBORN ([id number]) [facility] ([facility]) [address] [place] [address] 35062 CO2 [Moles/Vol] 28 mmol/L Normal 21-32 [facility] Comment on above: Performed By: #### 5 7021-8 #### KALIN OSBORN ([id number]) [facility] ([facility]) [address] [place] [address] 80762 Creatinine [Mass/Vol] 0.84 mg/dL Normal 0.50-1.30 [facility] Comment on above: Performed By: #### 5 7021-8 #### KALIN OSBORN ([id number]) [facility] ([facility]) [address] [place] [address]116 Glomerular filtration rate 83 mL/min/1.73m*2 Normal >60 [facility] Comment on above: Result Comment: Calc ulations of estimated GFR are performed using the 2020 CKD-EPI Study Refit equation without the race variable for the IDMS-Traceable creatinine methods. https://jasn.asnjournals.org/content//ASN.63438 95195 Performed By: #### 5 7021-8 #### KALIN OSBORN ([id number]) [facility] ([facility]) [address] [place] [address] 48762 Glucose [Mass/Vol] 88 mg/dL Normal 74-99 [facility] Comment on above: Performed By: #### 5 7021-8 #### KALIN OSBORN ([id number]) [facility] ([facility]) [address] [place] [address] Potassium [Moles/Vol] 4.0 mmol/L Normal 3.5-5.3 [facility] Comment on above: Performed By: #### 5 7021-8 #### KALIN OSBORN ([id number]) [facility] ([facility]) [address] [place] [address]00 Sodium [Moles/Vol] 142 mmol/L Normal 136-145 [facility] Comment on above: Performed By: #### 5 7021-8 #### KALIN OSBORN ([id number]) [facility] ([facility]) [address] [place] [address] 86543 Urea nitrogen [Mass/Vol] 15 mg/dL Normal 6-23 [facility] Comment on above: Performed By: #### 5 7021-8 #### KALIN OSBORN ([id number]) [facility] ([facility]) [address] [place] [address] Blood type and Indirect anti body screen panel (Bld)on 08-04-2025 ABO group Nom (Bld) A [facility] Blood group antibody screen Ql Negative [facility] D Ag Ql (Bld) Positive [facility] ABO group Nom (Bld) A Normal [facility] Comment on above: Performed By: #### T HYDS #### KALIN OSBORN ([id number]) [facility] ([facility]) [address] [place] [address] Blood group antibody screen Ql Negative [facility] Comment on above: Performed By: #### T HYDS #### KALIN OSBORN ([id number]) [facility] ([facility]) [address] [place] [place] [id number] D Ag Ql (Bld) Positive [facility] Comment on above: Performed By: #### T HYDS #### KALIN OSBORN ([id number]) [facility] ([facility]) [address] [place] [address] CBC W Auto Differential pane l (Bld)on 08-04-2025 Basophils (Bld) [#/Vol] 0.05 10*3/uL [facility] Basophils/100 WBC (Bld) 0.7 % 0.0 - 2.0 % [facility] Eosinophils (Bld) [#/Vol] 0.09 10*3/uL [facility] Eosinophils/100 WBC (Bld) 1.3 % 0.0 - 6.0 % [facility] Erythrocyte distribution width (RBC) [Ratio] 12.6 % 11.5 - 14.5 % [facility] Hematocrit (Bld) [Volume fraction] 37.1 % Low 41.0 - 52.0 % [facility] Hemoglobin (Bld) [Mass/Vol] 12.4 g/dL Low 13.5 - 17.5 g/dL [facility] Immature granulocytes (Bld) [#/Vol] 0.02 10*3/uL [facility] Immature granulocytes/100 WBC (Bld) 0.3 % 0.0 - 0.9 % [facility] Comment on above: Immature Granulocyte Count (IG) includes promyelocytes, myelocytes and metamyelocytes but does not include bands. Percent differential counts (%) should be interpreted in the context of the absolute cell counts (cells/UL). Interpretation and review of laboratory results Abnormal [facility] Lymphocytes (Bld) [#/Vol] 1.05 10*3/uL [facility] Lymphocytes/100 WBC (Bld) 15.5 % 13.0 - 44.0 % [facility] MCH (RBC) [Entitic mass] 31.0 pg 26.0 - 34.0 pg [facility] MCHC (RBC) [Mass/Vol] 33.4 g/dL 32.0 - 36.0 g/dL [facility] MCV (RBC) [Entitic vol] 93 fL 80 - 100 fL [facility] Monocytes (Bld) [#/Vol] 0.62 10*3/uL [facility] Monocytes/100 WBC (Bld) 9.1 % 2.0 - 10.0 % [facility] Neutrophils (Bld) [#/Vol] 4.96 10*3/uL [facility] Comment on above: Percent differential counts (%) should be interpreted in the context of the absolute cell counts (cells/uL). Neutrophils/100 WBC (Bld) 73.1 % 40.0 - 80.0 % [facility] Nucleated RBC/100 WBC (Bld) [Ratio] 0.0 % [facility] Platelets (Bld) [#/Vol] 255 10*3/uL [facility] RBC (Bld) [#/Vol] 4.00 10*6/uL Low [facility] WBC (Bld) [#/Vol] 6.8 10*3/uL [facility] Basophils (Bld) [#/Vol] 0.05 x10*3/uL Normal 0.00-0.10 [facility] Comment on above: Performed By: #### 2 4323-8 #### KALIN OSBORN ([id number]) [facility] ([facility]) [address] [place] [address] 19351 Basophils/100 WBC (Bld) 0.7 % Normal 0.0-2.0 [facility] Comment on above: Performed By: #### 2 4323-8 #### KALIN OSBORN ([id number]) [facility] ([facility]) [address] [place] [address] 09361 Eosinophils (Bld) [#/Vol] 0.09 x10*3/uL Normal 0.00-0.40 [facility] Comment on above: Performed By: #### 2 4323-8 #### KALIN OSBORN ([id number]) [facility] ([facility]) [address] [place] [address] 34900 Eosinophils/100 WBC (Bld) 1.3 % Normal 0.0-6.0 [facility] Comment on above: Performed By: #### 2 4323-8 #### KALIN OSBORN ([id number]) [facility] ([facility]) [address] [place] [address] 04367 Erythrocyte distribution width (RBC) [Ratio] 12.6 % Normal 11.5-14.5 [facility] Comment on above: Performed By: #### 2 4323-8 #### KALIN OSBORN ([id number]) [facility] ([facility]) [address] [place] [address] Hematocrit (Bld) [Volume fraction] 37.1 % Low 41.0-52.0 [facility] Comment on above: Performed By: #### 2 4323-8 #### KALIN OSBORN ([id number]) [facility] ([facility]) [address] [place] [address] Hemoglobin (Bld) [Mass/Vol] 12.4 g/dL Low 13.5-17.5 [facility] Comment on above: Performed By: #### 2 4323-8 #### KALIN OSBORN ([id number]) [facility] ([facility]) [address] [place] [address] Immature granulocytes (Bld) [#/Vol] 0.02 x10*3/uL Normal 0.00-0.50 [facility] Comment on above: Performed By: #### 2 4323-8 #### KALIN OSBORN ([id number]) [facility] ([facility]) [address] [place] [address] Immature granulocytes/100 WBC (Bld) 0.3 % Normal 0.0-0.9 [facility] Comment on above: Result Comment: Steph ture Granulocyte Count (IG) includes promyelocytes, myelocytes and metamyelocytes but does not include bands. Percent differential counts (%) should be interpreted in the context of the absolute cell counts (cells/UL). Performed By: #### 2 4323-8 #### KALIN OSBORN ([id number]) [facility] ([facility]) [address] [place], [place] [id number] Lymphocytes (Bld) [#/Vol] 1.05 x10*3/uL Normal 0.80-3.00 [facility] Comment on above: Performed By: #### 2 4323-8 #### KALIN OSBORN ([id number]) [facility] ([facility]) [address] [place] [address] Lymphocytes/100 WBC (Bld) 15.5 % Normal 13.0-44.0 [facility] Comment on above: Performed By: #### 2 4323-8 #### KALIN OSBORN ([id number]) [facility] ([facility]) [address] [place] [address] 81937 MCH (RBC) [Entitic mass] 31.0 pg Normal 26.0-34.0 [facility] Comment on above: Performed By: #### 2 4323-8 #### KALIN OSBORN ([id number]) [facility] ([facility]) [address] [place] [address] 86214 MCHC (RBC) [Mass/Vol] 33.4 g/dL Normal 32.0-36.0 [facility] Comment on above: Performed By: #### 2 432-8 #### KALIN OSBORN ([id number]) [facility] ([facility]) [address] [place] [address] 64553 MCV (RBC) [Entitic vol] 93 fL Normal 80-100 [facility] Comment on above: Performed By: #### 2 432-8 #### KALIN OSBORN ([id number]) [facility] ([facility]) [address] [place] [address] 22766 Monocytes (Bld) [#/Vol] 0.62 x10*3/uL Normal 0.05-0.80 [facility] Comment on above: Performed By: #### 2 4323-8 #### KALIN OSBORN ([id number]) [facility] ([facility]) [address] [place] [address] 11869 Monocytes/100 WBC (Bld) 9.1 % Normal 2.0-10.0 [facility] Comment on above: Performed By: #### 2 4323-8 #### KALIN OSBORN ([id number]) [facility] ([facility]) [address] [place] [address] 16659 Neutrophils (Bld) [#/Vol] 4.96 x10*3/uL Normal 1.60-5.50 [facility] Comment on above: Result Comment: Perc ent differential counts (%) should be interpreted in the context of the absolute cell counts (cells/uL). Performed By: #### 2 4323-8 #### KALIN OSBORN ([id number]) [facility] ([facility]) [address] [place] [address] 02712 Neutrophils/100 WBC (Bld) 73.1 % Normal 40.0-80.0 [facility] Comment on above: Performed By: #### 2 4323-8 #### KALIN OSBORN ([id number]) [facility] ([facility]) [address] [place] [address] 17760 Nucleated RBC/100 WBC (Bld) [Ratio] 0.0 /100 WBCs Normal 0.0-0.0 [facility] Comment on above: Performed By: #### 2 4323-8 #### KALIN OSBORN ([id number]) [facility] ([facility]) [address] [place] [address] 92925 Platelets (Bld) [#/Vol] 255 x10*3/uL Normal 150-450 [facility] Comment on above: Performed By: #### 2 4323-8 #### KALIN OSBORN ([id number]) [facility] [facility] [address] [place] [address] 15706 RBC (Bld) [#/Vol] 4.00 x10*6/uL Low 4.50-5.90 [facility] Comment on above: Performed By: #### 2 4323-8 #### KALIN OSBORN ([id number]) [facility] ([facility]) [address] [place] [address] 46761 WBC (Bld) [#/Vol] 6.8 x10*3/uL Normal 4.4-11.3 [facility] Comment on above: Performed By: #### 2 4323-8 #### KALIN OSBORN ([id number]) [facility] ([facility]) [address] [place] [address] 08748 Basophils (Bld) [#/Vol] 0.05 10*3/uL [facility] Basophils/100 WBC (Bld) 0.7 % 0.0 - 2.0 % [facility] Eosinophils (Bld) [#/Vol] 0.15 10*3/uL [facility] Eosinophils/100 WBC (Bld) 2.2 % 0.0 - 6.0 % [facility] Erythrocyte distribution width (RBC) [Ratio] 12.6 % 11.5 - 14.5 % [facility] Hematocrit (Bld) [Volume fraction] 38.3 % Low 41.0 - 52.0 % [facility] Hemoglobin (Bld) [Mass/Vol] 12.3 g/dL Low 13.5 - 17.5 g/dL [facility] Immature granulocytes (Bld) [#/Vol] 0.02 10*3/uL [facility] Immature granulocytes/100 WBC (Bld) 0.3 % 0.0 - 0.9 % [facility] Comment on above: Immature Granulocyte Count (IG) includes promyelocytes, myelocytes and metamyelocytes but does not include bands. Percent differential counts (%) should be interpreted in the context of the absolute cell counts (cells/UL). Interpretation and review of laboratory results Abnormal [facility] Lymphocytes (Bld) [#/Vol] 0.88 10*3/uL [facility] Lymphocytes/100 WBC (Bld) 12.7 % 13.0 - 44.0 % [facility] MCH (RBC) [Entitic mass] 31.1 pg 26.0 - 34.0 pg [facility] MCHC (RBC) [Mass/Vol] 32.1 g/dL 32.0 - 36.0 g/dL [facility] MCV (RBC) [Entitic vol] 97 fL 80 - 100 fL [facility] Monocytes (Bld) [#/Vol] 0.61 10*3/uL [facility] Monocytes/100 WBC (Bld) 8.8 % 2.0 - 10.0 % [facility] Neutrophils (Bld) [#/Vol] 5.20 10*3/uL [facility] Comment on above: Percent differential counts (%) should be interpreted in the context of the absolute cell counts (cells/uL). Neutrophils/100 WBC (Bld) 75.3 % 40.0 - 80.0 % [facility] Nucleated RBC/100 WBC (Bld) [Ratio] 0.0 % [facility] Platelets (Bld) [#/Vol] 224 10*3/uL [facility] RBC (Bld) [#/Vol] 3.96 10*6/uL Low [facility] WBC (Bld) [#/Vol] 6.9 10*3/uL [facility] Basophils (Bld) [#/Vol] 0.05 x10*3/uL Normal 0.00-0.10 [facility] Comment on above: Performed By: #### 5 7021-8 ####KALIN OSBORN ([id number])[facility] ([facility])[address] [place] [address] 62318 Basophils/100 WBC (Bld) 0.7 % Normal 0.0-2.0 [facility] Comment on above: Performed By: #### 5 7021-8 ####KALIN OSBORN ([id number])[facility] ([facility])[address] [place] [address] 61241 Eosinophils (Bld) [#/Vol] 0.15 x10*3/uL Normal 0.00-0.40 [facility] Comment on above: Performed By: #### 5 7021-8 ####KALIN OSBORN ([id number])[facility] ([facility])[address] [place] [address] 04521 Eosinophils/100 WBC (Bld) 2.2 % Normal 0.0-6.0 [facility] Comment on above: Performed By: #### 5 7021-8 ####KALIN OSBORN ([id number])[facility] ([facility])[address] [place] [address] 82533 Erythrocyte distribution width (RBC) [Ratio] 12.6 % Normal 11.5-14.5 [facility] Comment on above: Performed By: #### 5 7021-8 ####KALIN OSBORN ([id number])[facility] ([facility])[address] [place] [address] 03654 Hematocrit (Bld) [Volume fraction] 38.3 % Low 41.0-52.0 [facility] Comment on above: Performed By: #### 5 7021-8 ####KALIN OSBORN ([id number])[facility] ([facility])[address] [place] [address] 51867 Hemoglobin (Bld) [Mass/Vol] 12.3 g/dL Low 13.5-17.5 [facility] Comment on above: Performed By: #### 5 7021-8 ####KALIN OSBORN ([id number])[facility] ([facility])[address] [place] [address] 84576 Immature granulocytes (Bld) [#/Vol] 0.02 x10*3/uL Normal 0.00-0.50 [facility] Comment on above: Performed By: #### 5 7021-8 ####KALIN OSBORN ([id number])[facility] ([facility])[address] [place] [address] 99480 Immature granulocytes/100 WBC (Bld) 0.3 % Normal 0.0-0.9 [facility] Comment on above: Result Comment: Stehp ture Granulocyte Count (IG) includes promyelocytes, myelocytes and metamyelocytes but does not include bands. Percent differential counts (%) should be interpreted in the context of the absolute cell counts (cells/UL). Performed By: #### 5 7021-8 ####KALIN OSBORN ([id number])[facility] ([facility])[address] [place] [address] 48293 Lymphocytes (Bld) [#/Vol] 0.88 x10*3/uL Normal 0.80-3.00 [facility] Comment on above: Performed By: #### 5 7021-8 ####KALIN OSBORN ([id number])[facility] ([facility])[address] [place] [address] 99765 Lymphocytes/100 WBC (Bld) 12.7 % Normal 13.0-44.0 [facility] Comment on above: Performed By: #### 5 7021-8 ####KALIN OSBORN ([id number])[facility] ([facility])[address] [place] [address] 51723 MCH (RBC) [Entitic mass] 31.1 pg Normal 26.0-34.0 [facility] Comment on above: Performed By: #### 5 7021-8 ####KALIN OSBORN ([id number])[facility] ([facility])[address] [place] [address] 78803 MCHC (RBC) [Mass/Vol] 32.1 g/dL Normal 32.0-36.0 [facility] Comment on above: Performed By: #### 5 7021-8 ####KALIN OSBORN ([id number])[facility] ([facility])[address] [place] [address] 80168 MCV (RBC) [Entitic vol] 97 fL Normal 80-100 [facility] Comment on above: Performed By: #### 5 7021-8 ####KALIN OSBORN ([id number])[facility] ([facility])[address] [place] [address] 13802 Monocytes (Bld) [#/Vol] 0.61 x10*3/uL Normal 0.05-0.80 [facility] Comment on above: Performed By: #### 5 7021-8 ####KALIN OSBORN ([id number])[facility] ([facility])[address] [place] [address] 83106 Monocytes/100 WBC (Bld) 8.8 % Normal 2.0-10.0 [facility] Comment on above: Performed By: #### 5 7021-8 ####KALIN OSBORN ([id number])[facility] ([facility])[address] [place] [address] 63993 Neutrophils (Bld) [#/Vol] 5.20 x10*3/uL Normal 1.60-5.50 [facility] Comment on above: Result Comment: Perc ent differential counts (%) should be interpreted in the context of the absolute cell counts (cells/uL). Performed By: #### 5 7021-8 ####KALIN OSBORN ([id number])[facility] ([facility])[address] [place] [address] 02812 Neutrophils/100 WBC (Bld) 75.3 % Normal 40.0-80.0 [facility] Comment on above: Performed By: #### 5 7021-8 ####KALIN OSBORN ([id number])[facility] ([facility])[address] [place] [address] 04588 Nucleated RBC/100 WBC (Bld) [Ratio] 0.0 /100 WBCs Normal 0.0-0.0 [facility] Comment on above: Performed By: #### 5 7021-8 ####KALIN OSBORN ([id number])[facility] ([facility])[address] [place] [address] 18564 Platelets (Bld) [#/Vol] 224 x10*3/uL Normal 150-450 [facility] Comment on above: Performed By: #### 5 7021-8 ####KALIN OSBORN ([id number])[facility] ([facility])[address] [place], [place] [phone] RBC (Bld) [#/Vol] 3.96 x10*6/uL Low 4.50-5.90 [facility] Comment on above: Performed By: #### 5 7021-8 ####KALIN OSBORN ([id number])[facility] ([facility])[address] [place] [address] 55978 WBC (Bld) [#/Vol] 6.9 x10*3/uL Normal 4.4-11.3 [facility] Comment on above: Performed By: #### 5 7021-8 ####KALIN OSBORN ([id number])[facility] ([facility])[address] [place] [address] CERVICAL SPINE WO IV CONT [facility] 08-04-2025 CT CERVICAL SPINE WO IV CONTRAST Interpreted By: Henry Kenny, STUDY: CT CERVICAL SPINE WO IV CONTRAST; 08/04/2025 8:22 am INDICATION: Signs/Symptoms:fall. COMPARISON: None. ACCESSION NUMBER(S): [id number] ORDERING CLINICIAN: SANTIAGO MENENDEZ TECHNIQUE: Axial CT [...] right apical pleural thickening. Carotid arterial calcifications kzkw-amxdlmr-dfkh-righ t. IMPRESSION: No evidence for an acute fracture or subluxation of the cervical spine. Mild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 By: #### L 500.4050, L500.4100, L503.0106, L506.1001 #### [facility] [address] [place], [address] eGFR Normal >60 [facility] Comment on above: Result Comment: Canc elled via OM: Order cancelled - Patient discharged Performed By: #### L 500.4050, L500.4100, L503.0106, L506.1001 #### [facility] [address] [place], [address] GAP Normal 5-15 [facility] Comment on above: Result Comment: Canc elled via OM: Order cancelled - Patient discharged Performed By: #### L 500.4050, L500.4100, L503.0106, L506.1001 #### [facility] [address] [place], [address] GLU Normal 70-99 [facility] Comment on above: Result Comment: Canc elled via OM: Order cancelled - Patient discharged Performed By: #### L 500.4050, L500.4100, L503.0106, L506.1001 #### [facility] [address] [place], [address] Potassium Normal 3.3-5.1 [facility] Comment on above: Result Comment: Canc elled via OM: Order cancelled - Patient discharged Performed By: #### L 500.4050, L500.4100, L503.0106, L506.1001 #### [facility] [address] [place], [address] Basic Metabolic Profile (BMP) Normal 133-145 [facility] Comment on above: Result Comment: Canc elled via OM: Order cancelled - Patient discharged Performed By: #### L 500.4050, L500.4100, L503.0106, L506.1001 #### [facility] [address] [place], [address] CBC W/Diff, Automatedon 10-0 Absolute Neut Normal 2.0-7.7 [facility] Comment on above: Result Comment: Canc elled via OM: Order cancelled - Patient discharged Performed By: #### L 500.4050, L500.4100, L503.0106, L506.1001 #### [facility] [address] [place], [address] HCT Normal 40-54 [facility] Comment on above: Result Comment: Canc elled via OM: Order cancelled - Patient discharged Performed By: #### L 500.4050, L500.4100, L503.0106, L506.1001 #### [facility] [address] [place], [address] HGB Normal 13.0-16.5 [facility] Comment on above: Result Comment: Canc elled via OM: Order cancelled - Patient discharged Performed By: #### L 500.4050, L500.4100, L503.0106, L506.1001 #### [facility] [address] [place], [address] MCH Normal 27.0-32.0 [facility] Comment on above: Result Comment: Canc elled via OM: Order cancelled - Patient discharged Performed By: #### L 500.4050, L500.4100, L503.0106, L506.1001 #### [facility] [address] [place], [address] MCHC Normal 32-36 [facility] Comment on above: Result Comment: Canc elled via OM: Order cancelled - Patient discharged Performed By: #### L 500.4050, L500.4100, L503.0106, L506.1001 #### [facility] [address] [place], [address] MCV Normal 80-94 [facility] Comment on above: Result Comment: Canc elled via OM: Order cancelled - Patient discharged Performed By: #### L 500.4050, L500.4100, L503.0106, L506.1001 #### [facility] [address] [place], [address] NEUT% Normal 47-70 [facility] Comment on above: Result Comment: Canc elled via OM: Order cancelled - Patient discharged Performed By: #### L 500.4050, L500.4100, L503.0106, L506.1001 #### [facility] [address] [place], [address] PLT Normal 150-450 [facility] Comment on above: Result Comment: Canc elled via OM: Order cancelled - Patient discharged Performed By: #### L 500.4050, L500.4100, L503.0106, L506.1001 #### [facility] [address] [place], [address] RBC Normal 4.6-6.2 [facility] Comment on above: Result Comment: Canc elled via OM: Order cancelled - Patient discharged Performed By: #### L 500.4050, L500.4100, L503.0106, L506.1001 #### [facility] [address] [place], [address] RDW CV Normal 11.6-14.6 [facility] Comment on above: Result Comment: Canc elled via OM: Order cancelled - Patient discharged Performed By: #### L 500.4050, L500.4100, L503.0106, L506.1001 #### [facility] [address] [place], [address] RDW SD Normal 35.1-43.9 [facility] Comment on above: Result Comment: Canc elled via OM: Order cancelled - Patient discharged Performed By: #### L 500.4050, L500.4100, L503.0106, L506.1001 #### [facility] [address] [place], [address] WBC Normal 4.4-11.0 [facility] Comment on above: Result Comment: Canc elled via OM: Order cancelled - Patient discharged Performed By: #### L 500.4050, L500.4100, L503.0106, L506.1001 #### [facility] [address] [place], [address] Basic Metabolic Profile (BMP )on 07-22-2025 BUN Normal 4-19 [facility] Comment on above: Result Comment: Canc elled via OM: Order cancelled - Patient discharged Performed By: #### L 500.4050, L500.4100, L503.0106, L506.1001 #### [facility] [address] [place], [address] BUN/CRE Normal 10-20 [facility] Comment on above: Result Comment: Canc elled via OM: Order cancelled - Patient discharged Performed By: #### L 500.4050, L500.4100, L503.0106, L506.1001 #### [facility] [address] [place], [address] Calcium Normal 7.6-11.0 [facility] Comment on above: Result Comment: Canc elled via OM: Order cancelled - Patient discharged Performed By: #### L 500.4050, L500.4100, L503.0106, L506.1001 #### [facility] [address] [place], [address] CL Normal 98-108 [facility] Comment on above: Result Comment: Canc elled via OM: Order cancelled - Patient discharged Performed By: #### L 500.4050, L500.4100, L503.0106, L506.1001 #### [facility] [address] [place], [address] CO2 Normal 21.0-32.0 [facility] Comment on above: Result Comment: Canc elled via OM: Order cancelled - Patient discharged Performed By: #### L 500.4050, L500.4100, L503.0106, L506.1001 #### [facility] [address] [place], [address] CREAT,SERUM Normal 0.70-1.20 [facility] Comment on above: Result Comment: Canc elled via OM: Order cancelled - Patient discharged Performed By: #### L 500.4050, L500.4100, L503.0106, L506.1001 #### [facility] [address] [place], [address] eGFR Normal >60 [facility] Comment on above: Result Comment: Canc elled via OM: Order cancelled - Patient discharged Performed By: #### L 500.4050, L500.4100, L503.0106, L506.1001 #### [facility] [address] [place], [address] GAP Normal 5-15 [facility] Comment on above: Result Comment: Canc elled via OM: Order cancelled - Patient discharged Performed By: #### L 500.4050, L500.4100, L503.0106, L506.1001 #### [facility] [address] [place], [address] GLU Normal 70-99 [facility] Comment on above: Result Comment: Canc elled via OM: Order cancelled - Patient discharged Performed By: #### L 500.4050, L500.4100, L503.0106, L506.1001 #### [facility] [address] [place], [address] Potassium Normal 3.3-5.1 [facility] Comment on above: Result Comment: Canc elled via OM: Order cancelled - Patient discharged Performed By: #### L 500.4050, L500.4100, L503.0106, L506.1001 #### [facility] [address] [place], [address] Basic Metabolic Profile (BMP) Normal 133-145 [facility] Comment on above: Result Comment: Canc elled via OM: Order cancelled - Patient discharged Performed By: #### L 500.4050, L500.4100, L503.0106, L506.1001 #### [facility] [address] [place], [address] CBC W/Diff, Automatedon 10-0 Absolute Neut Normal 2.0-7.7 [facility] Comment on above: Result Comment: Canc elled via OM: Order cancelled - Patient discharged Performed By: #### L 500.4050, L500.4100, L503.0106, L506.1001 #### [facility] [address] [place], [address] HCT Normal 40-54 [facility] Comment on above: Result Comment: Canc elled via OM: Order cancelled - Patient discharged Performed By: #### L 500.4050, L500.4100, L503.0106, L506.1001 #### [facility] [address] [place], [address] HGB Normal 13.0-16.5 [facility] Comment on above: Result Comment: Canc elled via OM: Order cancelled - Patient discharged Performed By: #### L 500.4050, L500.4100, L503.0106, L506.1001 #### [facility] [address] [place], [address] MCH Normal 27.0-32.0 [facility] Comment on above: Result Comment: Canc elled via OM: Order cancelled - Patient discharged Performed By: #### L 500.4050, L500.4100, L503.0106, L506.1001 #### [facility] [address] [place], [address] MCHC Normal 32-36 [facility] Comment on above: Result Comment: Canc elled via OM: Order cancelled - Patient discharged Performed By: #### L 500.4050, L500.4100, L503.0106, L506.1001 #### [facility] [address] [place], [address] MCV Normal 80-94 [facility] Comment on above: Result Comment: Canc elled via OM: Order cancelled - Patient discharged Performed By: #### L 500.4050, L500.4100, L503.0106, L506.1001 #### [facility] [address] [place], [address] NEUT% Normal 47-70 [facility] Comment on above: Result Comment: Canc elled via OM: Order cancelled - Patient discharged Performed By: #### L 500.4050, L500.4100, L503.0106, L506.1001 #### [facility] [address] [place], [address] PLT Normal 150-450 [facility] Comment on above: Result Comment: Canc elled via OM: Order cancelled - Patient discharged Performed By: #### L 500.4050, L500.4100, L503.0106, L506.1001 #### [facility] [address] [place], [address] RBC Normal 4.6-6.2 [facility] Comment on above: Result Comment: Canc elled via OM: Order cancelled - Patient discharged Performed By: #### L 500.4050, L500.4100, L503.0106, L506.1001 #### [facility] [address] [place], [address] RDW CV Normal 11.6-14.6 [facility] Comment on above: Result Comment: Canc elled via OM: Order cancelled - Patient discharged Performed By: #### L 500.4050, L500.4100, L503.0106, L506.1001 #### [facility] [address] [place], [address] RDW SD Normal 35.1-43.9 [facility] Comment on above: Result Comment: Canc elled via OM: Order cancelled - Patient discharged Performed By: #### L 500.4050, L500.4100, L503.0106, L506.1001 #### [facility] [address] [place], [address] WBC Normal 4.4-11.0 [facility] Comment on above: Result Comment: Canc elled via OM: Order cancelled - Patient discharged Performed By: #### L 500.4050, L500.4100, L503.0106, L506.1001 #### [facility] [address] [place], [address] CBC (INCLUDES DIFF/PLT)on Basophils (Bld) [#/Vol] 0.06 10*3/uL Normal 0-200 [facility] Comment on above: Performed By: #### 6 399, 03189 #### [facility] [address] [facility], [address] [place] [address] Rand Cementer: Osman Rojo MD Basophils/100 WBC (Bld) 0.7 % Normal [facility] Comment on above: Performed By: #### 6 399, 63218 #### [facility] [place] [address] Rand Cementer: Osman Rojo MD Eosinophils (Bld) [#/Vol] 0.172 10*3/uL Normal 15-500 [facility] Comment on above: Performed By: #### 6 399, 96232 #### [facility] [place] [address] Rand Cementer: Osman Rojo MD Eosinophils/100 WBC (Bld) 2.0 % Normal [facility] Comment on above: Performed By: #### 6 399, 53627 #### [facility] [place] [address] Rand Cementer: Osman Rojo MD Erythrocyte distribution width (RBC) [Ratio] 12.9 % Normal 11.0-15.0 [facility] Comment on above: Performed By: #### 6 399, 89869 #### [facility] [place] [address] Rand Cementer: Osman Rojo MD Hematocrit (Bld) [Volume fraction] 38.3 % Low 38.5-50.0 [facility] Comment on above: Performed By: #### 6 399, 89114 #### [facility] [place] [address] Rand Cementer: Osman Rojo MD Hemoglobin (Bld) [Mass/Vol] 12.1 g/dL Low 13.2-17.1 [facility] Comment on above: Performed By: #### 6 399, 22377 #### [facility] [place] [address] Rand Cementer: Osman Rojo MD Lymphocytes (Bld) [#/Vol] 0.774 10*3/uL Low 850-3900 [facility] Comment on above: Performed By: #### 6 399, 04437 #### [facility] [place] [address] Rand Cementer: Osman Rojo MD Lymphocytes/100 WBC (Bld) 9.0 % Normal [facility] Comment on above: Performed By: #### 6 399, 39907 #### [facility] [place] [address] Rand Cementer: Osman Rojo MD MCH (RBC) [Entitic mass] 32.0 pg Normal 27.0-33.0 [facility] Comment on above: Performed By: #### 6 399, 89030 #### [facility] [place] [address] Rand Cementer: Osman Rojo MD MCHC (RBC) [Mass/Vol] 31.6 [...] clinical condition. Performed By: #### 6 399, 31517 #### [facility] [place] [address] Rand Cementer: Osman Rojo MD MCV (RBC) [Entitic vol] 101.3 fL High 80.0-100.0 [facility] Comment on above: Performed By: #### 6 399, 60607 #### [facility] [place] [address] Rand Cementer: Osman Rojo MD Monocytes (Bld) [#/Vol] 0.946 10*3/uL Normal 200-950 [facility] Comment on above: Performed By: #### 6 399, 82889 #### [facility] [place] [address] Rand Cementer: Osman Rojo MD Monocytes/100 WBC (Bld) 11.0 % Normal [facility] Comment on above: Performed By: #### 6 399, 64235 #### [facility] [place] [address] Rand Cementer: Osman Rojo MD Neutrophils (Bld) [#/Vol] 6.648 10*3/uL Normal 7554-0488 [facility] Comment on above: Performed By: #### 6 399, 72737 #### [facility] [place] [address] Rand Cementer: Osman Rojo MD Neutrophils/100 WBC (Bld) 77.3 % Normal [facility] Comment on above: Performed By: #### 6 399, 73546 #### [facility] [place] [address] Rand Cementer: Osman Rojo MD Platelet mean volume (Bld) [Entitic vol] 9.3 fL Normal 7.5-12.5 [facility] Comment on above: Performed By: #### 6 399, 33419 #### [facility] [place] [address] Rand Cementer: Osman Rojo MD Platelets (Bld) [#/Vol] 300 10*3/uL Normal 140-400 [facility] Comment on above: Performed By: #### 6 399, 15514 #### [facility] [place] [address] Rand Cementer: Osman Rojo MD RBC (Bld) [#/Vol] 3.78 10*6/uL Low 4.20-5.80 [facility] Comment on above: Performed By: #### 6 399, 23372 #### [facility] [place] [address] Rand Cementer: Osman Rojo MD WBC (Bld) [#/Vol] 8.6 10*3/uL Normal 3.8-10.8 [facility] Comment on above: Performed By: #### 6 399, 31414 #### [facility] [place] [address] Rand Cementer: Osman Rojo MD COMPREHENSIVE METABOLIC PANE L W/ANION GAPon 07-18-2025 Albumin [Mass/Vol] 3.9 g/dL Normal 3.6-5.1 [facility] Comment on above: Order Comment: FASTI NG:NO FASTING: NO Performed By: #### 6 399, 12582 #### [facility] [place] [address] Rand Cementer: Osman Rojo MD ALP [Catalytic activity/Vol] 114 U/L Normal 35-144 [facility] Comment on above: Order Comment: FASTI NG:NO FASTING: NO Performed By: #### 6 399, 09698 #### [facility] [place] [address] Rand Cementer: Osman Rojo MD ALT [Catalytic activity/Vol] 23 U/L Normal 9-46 [facility] Comment on above: Order Comment: FASTI NG:NO FASTING: NO Performed By: #### 6 399, 91571 #### [facility] [place] [address] Rand Cementer: Osman Rojo MD AST [Catalytic activity/Vol] 16 U/L Normal 10-35 [facility] Comment on above: Order Comment: FASTI NG:NO FASTING: NO Performed By: #### 6 399, 09011 #### [facility] [place] [address] Rand Cementer: Osman Rojo MD Bilirubin [Mass/Vol] 0.5 mg/dL Normal 0.2-1.2 [facility] Comment on above: Order Comment: FASTI NG:NO FASTING: NO Performed By: #### 6 399, 94277 #### [facility] [place] [address] Rand Cementer: Osman Rojo MD Calcium [Mass/Vol] 9.1 mg/dL Normal 8.6-10.3 [facility] Comment on above: Order Comment: FASTI NG:NO FASTING: NO Performed By: #### 6 399, 34953 #### [facility] [place] [address] Rand Cementer: Osman Rojo MD Chloride [Moles/Vol] 104 mmol/L Normal 98-110 [email or web address] Comment on above: Order Comment: FASTI NG:NO FASTING: NO Performed By: #### 6 399, 57769 #### [facility] [place] [address] Rand Cementer: Osman Rojo MD CO2 [Moles/Vol] 26 mmol/L Normal 20-32 [facility] Comment on above: Order Comment: FASTI NG:NO FASTING: NO Performed By: #### 6 399, 16744 #### [facility] [place] [address] Rand Cementer: Osman Rojo MD Creatinine [Mass/Vol] 0.86 mg/dL Normal 0.70-1.[address] [facility] Comment on above: Order Comment: FASTI NG:NO FASTING: NO Performed By: #### 6 399, 67871 #### [facility] [place] [address] Rand Cementer: Osman Rojo MD ELECTROLYTE BALANCE 7 mmol/L (calc) Normal 7-17 [facility] Comment on above: Order Comment: FASTI NG:NO FASTING: NO Performed By: #### 6 399, 69004 #### [facility] [place] [address] Rand Cementer: Osman Rojo MD GFR/1.73 sq M.predicted among non-blacks MDRD (S/P/Bld) [Vol rate/Area] 83 mL/min/{1.73_m2} Normal > OR = 60 [facility] Comment on above: Order Comment: FASTI NG:NO FASTING: NO Performed By: #### 6 399, 79367 #### [facility] [place] [address] Rand Cementer: Osman Rojo MD Glucose [Mass/Vol] 85 mg/dL Normal 65-139 [facility] Comment on above: Order Comment: FASTI NG:NO FASTING: NO Result Comment: Non-fasting reference interval Performed By: #### 6 399, 89782 #### [facility] [address], [address] [place] [address] Rand Cementer: Osman Rojo MD Potassium [Moles/Vol] 4.7 mmol/L Normal 3.5-5.[address] [facility] Comment on above: Order Comment: FASTI NG:NO FASTING: NO Performed By: #### 6 399, 00213 #### [facility] [place] [address] Rand Cementer: Osman Rojo MD Protein [Mass/Vol] 6.1 g/dL Normal 6.1-8.1 [facility] Comment on above: Order Comment: FASTI NG:NO FASTING: NO Performed By: #### 6 399, 88842 #### [facility] [address], [address] [place] [address] Rand Cementer: Osman Rojo MD Sodium [Moles/Vol] 137 mmol/L Normal 135-146 [facility] Comment on above: Order Comment: FASTI NG:NO FASTING: NO Performed By: #### 6 399, 87801 #### [facility] [place] [address] Rand Cementer: Osman Rojo MD Urea nitrogen [Mass/Vol] 20 mg/dL Normal 7-25 [facility] Comment on above: Order Comment: FASTI NG:NO FASTING: NO Performed By: #### 6 399, 83408 #### [facility] [place] [address] Rand Cementer: Osman Rojo MD Absolute lymphocyte countOrd ered By: Jesus Alberto Wiggins on 07-15-2025 Lymphocytes Auto (Unsp spec) [#/Vol] 1.37 10*3/uL 0.83-4.51 [facility] Absolute neutrophil countOrd ered By: Jesus Alberto Wiggins on 07-15-2025 Neutrophils (Bld) [#/Vol] 5.0 10*3/uL 2.0-7.7 [facility] Anion gap in Serum or Plasma Ordered By: Jesus Alberto Wiggins on 07-15-2025 Anion gap [Moles/Vol] 11 mmol/L 5-15 [facility] Automated lymphocyte count a s percentage of total leukocytesOrdered By: Jesus Alberto Wiggins on 07-15-2025 Lymphocytes/100 WBC Auto (Unsp spec) 17.8 % Low 19-41 [facility] BUN/creatinine ratioOrdered By: Jesus Alberto Wiggins on 07-15-2025 Urea nitrogen/Creatinine [Mass ratio] 31.8 mg/mg High 10-20 [facility] Basic Metabolic Profile (BMP )on 07-15-2025 BUN/CRE 31.8 RATIO High 10- [facility] Comment on above: Performed By: #### L 500.4050, L500.4100, L503.0106, L506.1001 #### [facility] [address] [place], [address] Calcium [Mass/Vol] 8.8 mg/dL Normal 7.6-11.0 [facility] Comment on above: Performed By: #### L 500.4050, L500.4100, L503.0106, L506.1001 #### [facility] [address] [place], [address] Chloride [Moles/Vol] 103 mmol/L Normal 98-108 [facility] Comment on above: Performed By: #### L 500.4050, L500.4100, L503.0106, L506.1001 #### [facility] [address] [place], [address] CO2 [Moles/Vol] 21.1 mmol/L Normal 21.0-32.0 [facility] Comment on above: Performed By: #### L 500.4050, L500.4100, L503.0106, L506.1001 #### [facility] [address] [place], [address] Creatinine [Mass/Vol] 0.72 mg/dL Normal 0.70-1.20 [facility] Comment on above: Performed By: #### L 500.4050, L500.4100, L503.0106, L506.1001 #### [facility] [address] [place], [address] ECRCL 56.49 ml/min Normal 50-250 [facility] Comment on above: Performed By: #### L 500.4050, L500.4100, L503.0106, L506.1001 #### [facility] [address] [place], [address] GAP 11 Normal 5-15 [facility] Comment on above: Performed By: #### L 500.4050, L500.4100, L503.0106, L506.1001 #### [facility] [address] [place], [address] GFR/1.73 sq M.predicted among non-blacks MDRD (S/P/Bld) [Vol rate/Area] 87 mL/min/{1.73_m2} Normal >60 [facility] Comment on above: Result Comment: mL/m in/1.73m2 CKD-EPI Creatinine Equation (2020) Performed By: #### L 500.4050, L500.4100, L503.0106, L506.1001 #### [facility] [address] [place], [address] Glucose [Mass/Vol] 89 mg/dL Normal 70-99 [facility] Comment on above: Performed By: #### L 500.4050, L500.4100, L503.0106, L506.1001 #### [facility] [address] [place], [address] Potassium [Moles/Vol] 4.5 mmol/L Normal 3.3-5.1 [facility] Comment on above: Performed By: #### L 500.4050, L500.4100, L503.0106, L506.1001 #### [facility] [address] [place], [address] Sodium [Moles/Vol] 134 mmol/L Normal 133-145 [facility] Comment on above: Performed By: #### L 500.4050, L500.4100, L503.0106, L506.1001 #### [facility] [address] [place], [address] Urea nitrogen [Mass/Vol] 23 mg/dL High 4-19 [facility] Comment on above: Performed By: #### L 500.4050, L500.4100, L503.0106, L506.1001 #### [facility] [address] [place], [address] Basophil percentageOrdered B y: Jesus Alberto Wiggins on 07-15-2025 Basophils/100 WBC (Bld) 0.8 % 0-1 [facility] CBC W/Diff, Automatedon 06-23 Absolute Lymph 1.37 X10 3/uL Normal 0.83-4.51 [facility] Comment on above: Performed By: #### L 500.4050, L500.4100, L503.0106, L506.1001 #### [facility] [address] [place], [address] Absolute Neut 5.0 X10 3/uL Normal 2.0-7.7 [facility] Comment on above: Performed By: #### L 500.4050, L500.4100, L503.0106, L506.1001 #### [facility] [address] [place], [address] Basophils/100 WBC (Bld) 0.8 % Normal 0-1 [facility] Comment on above: Performed By: #### L 500.4050, L500.4100, L503.0106, L506.1001 #### [facility] [address] [place], [address] Eosinophils/100 WBC (Bld) 5.3 % High 0-5 [facility] Comment on above: Performed By: #### L 500.4050, L500.4100, L503.0106, L506.1001 #### [facility] [address] [place], [address] Erythrocyte distribution width (RBC) [Ratio] 13.2 % Normal 11.6-14.6 [facility] Comment on above: Performed By: #### L 500.4050, L500.4100, L503.0106, L506.1001 #### [facility] [address] [place], [address] Hematocrit (Bld) [Volume fraction] 32.0 % Low 40-54 [facility] Comment on above: Performed By: #### L 500.4050, L500.4100, L503.0106, L506.1001 #### [facility] [address] [place], [address] Hemoglobin (Bld) [Mass/Vol] 10.7 g/dL Low 13.0-16.5 [facility] Comment on above: Performed By: #### L 500.4050, L500.4100, L503.0106, L506.1001 #### [facility] [address] [place], [address] IG% 0.400 Normal 0.0-0.9 [facility] Comment on above: Result Comment: IG% - Immature Granulocytes (promyelocytes, myelocytes and metamyelocytes) > 1% indicates that a LEFT SHIFT is Present. Performed By: #### L 500.4050, L500.4100, L503.0106, L506.1001 #### [facility] [address] [place], [address] Lymphocytes/100 WBC (Bld) 17.8 % Low 19-41 [facility] Comment on above: Performed By: #### L 500.4050, L500.4100, L503.0106, L506.1001 #### [facility] [address] [place], [address] MCH (RBC) [Entitic mass] 31.8 pg Normal 27.0-32.0 [facility] Comment on above: Performed By: #### L 500.4050, L500.4100, L503.0106, L506.1001 #### [facility] [address] [place], [address] MCHC (RBC) [Mass/Vol] 33.4 g/dL Normal 32-36 [facility] Comment on above: Performed By: #### L 500.4050, L500.4100, L503.0106, L506.1001 #### [facility] [address] [place], [address] MCV (RBC) [Entitic vol] 95.0 fL High 80-94 [facility] Comment on above: Performed By: #### L 500.4050, L500.4100, L503.0106, L506.1001 #### [facility] [address] [place], [address] Monocytes/100 WBC (Bld) 10.8 % High 0-10 [facility] Comment on above: Performed By: #### L 500.4050, L500.4100, L503.0106, L506.1001 #### [facility] [address] [place], [address] Neutrophils/100 WBC (Bld) 64.9 % Normal 47-70 [facility] Comment on above: Performed By: #### L 500.4050, L500.4100, L503.0106, L506.1001 #### [facility] [address] [place], [address] Nucleated RBC (Bld) [#/Vol] 0 10*3/uL Normal 0-5 [facility] Comment on above: Performed By: #### L 500.4050, L500.4100, L503.0106, L506.1001 #### [facility] [address] [place], [address] Platelet mean volume (Bld) [Entitic vol] 9.1 fL Normal 6.2-12.0 [facility] Comment on above: Performed By: #### L 500.4050, L500.4100, L503.0106, L506.1001 #### [facility] [address] [place], [address] Platelets (Bld) [#/Vol] 255 10*3/uL Normal 150-450 [facility] Comment on above: Performed By: #### L 500.4050, L500.4100, L503.0106, L506.1001 #### [facility] [address] [place], [address] RBC (Bld) [#/Vol] 3.37 10*6/uL Low 4.6-6.2 [facility] Comment on above: Performed By: #### L 500.4050, L500.4100, L503.0106, L506.1001 #### [facility] [address] [place], [address] RDW SD 45.7 fl High 35.1-43.9 [facility] Comment on above: Performed By: #### L 500.4050, L500.4100, L503.0106, L506.1001 #### [facility] [address] [place], [address] WBC (Bld) [#/Vol] 7.7 10*3/uL Normal 4.4-11.0 [facility] Comment on above: Performed By: #### L 500.4050, L500.4100, L503.0106, L506.1001 #### [facility] [address] [place], [address] Carbon dioxide, total [Moles /volume] in Central venous bloodOrdered By: Jesus Alberto Wiggins on 07-15-2025 CO2 [Moles/Vol] 21.1 mmol/L 21.0-32.0 [facility] Chloride assayOrdered By: Kelechi Wiggins on 07-15-2025 Chloride [Moles/Vol] 103 mmol/L 98-108 [facility] Eosinophil percentageOrdered By: Jesus Alberto Wiggins 07-15-2025 Eosinophils/100 WBC (Bld) 5.3 % High 0-5 [facility] Erythrocyte distribution wid th ratioOrdered By: Jesus Alberto Wiggins 07-15-2025 Erythrocyte distribution width (RBC) [Ratio] 13.2 % 11.6-14.6 [facility] Erythrocyte distribution wid th standard deviationOrdered By: Jesus Alberto Wiggins 07-15-2025 Erythrocyte distribution width (RBC) [Ratio] 45.7 fl High 35.1-43.9 [facility] Glomerular filtration rate ( GFR) estimation/1.73 sq m using serum, plasma, or whole bOrdered By: Jesus Alberto Wiggins 07-15-2025 GFR/1.73 sq M.predicted among non-blacks MDRD (S/P/Bld) [Vol rate/Area] 87 mL/min/{1.73_m2} >60 [facility] Comment on above: mL/min/1.73m2 CKD-EP I Creatinine Equation (2020) Hematocrit Auto (Bld) [Volum e fraction]Ordered By: Jesus Alberto Wiggins on 07-15-2025 Hematocrit (Bld) [Volume fraction] 32.0 % Low 40-54 [facility] Hemoglobin measurementOrdere d By: Jesus Alberto Wiggins 07-15-2025 Hemoglobin (Bld) [Mass/Vol] 10.7 g/dL Low 13.0-16.5 [facility] Immature granulocytes/100 WB C Auto (Bld)Ordered By: Jesus Alberto Wiggins on 07-15-2025 Immature granulocytes/100 WBC (Bld) 0.400 % 0.0-0.9 [facility] Comment on above: IG% - Immature Granu locytes (promyelocytes, myelocytes and metamyelocytes) > 1% indicates that a LEFT SHIFT is Present. MCV (mean corpuscular volume ) determinationOrdered By: Jesus Alberto Wiggins on 07-15-2025 MCV (RBC) [Entitic vol] 95.0 fL High 80-94 [facility] Mean corpuscular hemoglobin (MCH) determinationOrdered By: Jesus Alberto Wiggins on 07-15-2025 MCH (RBC) [Entitic mass] 31.8 pg 27.0-32.0 [facility] Mean corpuscular hemoglobin concentration (MCHC) determinationOrdered By: Jesus Alberto Wiggins on 07-15-2025 MCHC (RBC) [Mass/Vol] 33.4 g/dL 32-36 [facility] Mean platelet volume determi nationOrdered By: Jesus Alberto Wiggins on 07-15-2025 Platelet mean volume (Bld) [Entitic vol] 9.1 fL 6.2-12.0 [facility] Monocyte percentageOrdered B y: Jesus Alberto Wiggins on 07-15-2025 Monocytes/100 WBC (Bld) 10.8 % High 0-10 [facility] Neutrophil percentageOrdered By: Jesus Alberto Wiggins on 07-15-2025 Neutrophils/100 WBC (Bld) 64.9 % 47-70 [facility] Nucleated red blood cell per centageOrdered By: Jesus Alberto Wiggins on 07-15-2025 Nucleated RBC/100 WBC (Bld) [Ratio] 0 % 0-5 [facility] Platelet countOrdered By: Kelechi Wiggins on 07-15-2025 Platelets (Bld) [#/Vol] 255 10*3/uL 150-450 [facility] Potassium measurement (mass/ volume)Ordered By: Jesus Alberto Wiggins on 07-15-2025 Potassium (Unsp spec) [Mass/Vol] 4.5 mmol/L 3.3-5.1 [facility] RBC Auto (Bld) [#/Vol]Ordere d By: Jesus Alberto Wiggins on 07-15-2025 RBC (Bld) [#/Vol] 3.37 10*6/uL Low 4.6-6.2 [facility] Serum creatinine measurement (mass/volume)Ordered By: Jesus Alberto Wiggins on 07-15-2025 Creatinine [Mass/Vol] 0.72 mg/dL 0.70-1.20 [facility] Serum glucose measurement (m ass/volume)Ordered By: Jesus Alberto Wiggins on 07-15-2025 Glucose [Mass/Vol] 89 mg/dL 70-99 [facility] Serum or plasma calcium praveen urement (mass/volume)Ordered By: Jesus Alberto Wiggins on 07-15-2025 Calcium [Mass/Vol] 8.8 mg/dL 7.6-11.0 [facility] Serum or plasma urea nitroge n measurement (mass/volume)Ordered By: Jesus Alberto Wiggins on 07-15-2025 Urea nitrogen [Mass/Vol] 23 mg/dL High 4-19 [facility] Sodium levelOrdered By: Jesus Alberto Wiggins on 07-15-2025 Sodium [Moles/Vol] 134 mmol/L 133-145 [facility] White blood cell (WBC) count Ordered By: Jesus Alberto Wiggins on 07-15-2025 WBC (Bld) [#/Vol] 7.7 10*3/uL 4.4-11.0 [facility] Bedside Glucoseon 07-14-2025 FINGERSTICK GLU 89 mg/dL Normal 74-106 [facility] Comment on above: Result Comment: MINDY GEMENT OF PATIENT CARE PER NURSING PROTOCOL Performed By: #### L 501.080 #### [facility] [address] [place], [place], [address] Brain/Head without Contrasto n 07-14-2025 Brain/Head without Contrast [facility] [address] [place], [place] [address] Brain/Head without Contrast MR#: [id number] Acct: [id number] Name: FAWN CAMERON Rep #: [id number] : 1935 M 89 From: [place] PCP: Dr. Devan Barrera MD Status: REG CLI Study: Brain/Head without Contrast Date of Exam: 06/23 01/13 Exam# [id number] Ordering Dr: Jesus Alberto Wiggins MD PROCEDURE: [...] IMPRESSION: No acute intracranial process. Reading Location: [facility] CC: Dr. Devan Barrera MD; Dr. Jesus Alberto Wiggins MD [place] Worker: Signed Normal [facility] deOrdered By: Jesus Alberto Wiggins on 07-14-2025 Glucose [Mass/Vol] 89 mg/dL 74-106 [facility] Comment on above: MANAGEMENT OF PATIEN T CARE PER NURSING PROTOCOL Basic Metabolic Profile (BMP )on 07-08-2025 BUN/CRE 34.3 RATIO High 10-20 [facility] Comment on above: Performed By: #### L 501.080 #### [facility] [address] [place], [address] Calcium [Mass/Vol] 8.9 mg/dL Normal 7.6-11.0 [facility] Comment on above: Performed By: #### L 501.080 #### [facility] [address] [place], [address] Chloride [Moles/Vol] 102 mmol/L Normal 98-108 [facility] Comment on above: Performed By: #### L 501.080 #### [facility] [address] [place], [address] CO2 [Moles/Vol] 22.3 mmol/L Normal 21.0-32.0 [facility] Comment on above: Performed By: #### L 501.080 #### [facility] [address] [place], [address] Creatinine [Mass/Vol] 0.85 mg/dL Normal 0.70-1.20 [facility] Comment on above: Performed By: #### L 501.080 #### [facility] [address] [place], [address] ECRCL 53.17 ml/min Normal 50-250 [facility] Comment on above: Performed By: #### L 501.080 #### [facility] [address] [place], [address] GAP 12 Normal 5-15 [facility] Comment on above: Performed By: #### L 501.080 #### [facility] [address] [place], [address] GFR/1.73 sq M.predicted among non-blacks MDRD (S/P/Bld) [Vol rate/Area] 83 mL/min/{1.73_m2} Normal >60 [facility] Comment on above: Result Comment: mL/m in/1.73m2 CKD-EPI Creatinine Equation (2020) Performed By: #### L 501.080 #### [facility] [address] [place], [address] Glucose [Mass/Vol] 96 mg/dL Normal 70-99 [facility] Comment on above: Performed By: #### L 501.080 #### [facility] [address] [place], [address] Potassium [Moles/Vol] 4.8 mmol/L Normal 3.3-5.1 [facility] Comment on above: Result Comment: Hemo lysis present, Results??could be affected. ?? Performed By: #### L 501.080 #### [facility] [address] [place], [address] Sodium [Moles/Vol] 135 mmol/L Normal 133-145 [facility] Comment on above: Performed By: #### L 501.080 #### [facility] [address] [place], [address] Urea nitrogen [Mass/Vol] 29 mg/dL High 4-19 [facility] Comment on above: Performed By: #### L 501.080 #### [facility] [address] [place], [address] CBC W/Diff, Automatedon 06-22 Absolute Lymph 0.97 X10 3/uL Normal 0.83-4.51 [facility] Comment on above: Performed By: #### L 501.080 #### [facility] [address] [place], [address] Absolute Neut 5.5 X10 3/uL Normal 2.0-7.7 [facility] Comment on above: Performed By: #### L 501.080 #### [facility] [address] [place], [address] Basophils/100 WBC (Bld) 0.6 % Normal 0-1 [facility] Comment on above: Performed By: #### L 501.080 #### [facility] [address] [place], [address] Eosinophils/100 WBC (Bld) 4.6 % Normal 0-5 [facility] Comment on above: Performed By: #### L 501.080 #### [facility] [address] [place], [address] Erythrocyte distribution width (RBC) [Ratio] 13.4 % Normal 11.6-14.6 [facility] Comment on above: Performed By: #### L 501.080 #### [facility] [address] [place], [address] Hematocrit (Bld) [Volume fraction] 33.0 % Low 40-54 [facility] Comment on above: Performed By: #### L 501.080 #### [facility] [address] [place], [address] Hemoglobin (Bld) [Mass/Vol] 10.9 g/dL Low 13.0-16.5 [facility] Comment on above: Performed By: #### L 501.080 #### [facility] [address] [place], [address] IG% 0.800 Normal 0.0-0.9 [facility] Comment on above: Result Comment: IG% - Immature Granulocytes (promyelocytes, myelocytes and metamyelocytes) > 1% indicates that a LEFT SHIFT is Present. Performed By: #### L 501.080 #### [facility] [address] [place], [address] Lymphocytes/100 WBC (Bld) 12.4 % Low 19-41 [facility] Comment on above: Performed By: #### L 501.080 #### [facility] [address] [place], [address] MCH (RBC) [Entitic mass] 32.1 pg High 27.0-32.0 [facility] Comment on above: Performed By: #### L 501.080 #### [facility] [address] [place], [address] MCHC (RBC) [Mass/Vol] 33.0 g/dL Normal 32-36 [facility] Comment on above: Performed By: #### L 501.080 #### [facility] [address] [place], [address] MCV (RBC) [Entitic vol] 97.1 fL High 80-94 [facility] Comment on above: Performed By: #### L 501.080 #### [facility] [address] [place], [address] Monocytes/100 WBC (Bld) 10.8 % High 0-10 [facility] Comment on above: Performed By: #### L 501.080 #### [facility] [address] [place], [address] Neutrophils/100 WBC (Bld) 70.8 % High 47-70 [facility] Comment on above: Performed By: #### L 501.080 #### [facility] [address] [place], [address] Nucleated RBC (Bld) [#/Vol] 0 10*3/uL Normal 0-5 [facility] Comment on above: Performed By: #### L 501.080 #### [facility] [address] [place], [address] Platelet mean volume (Bld) [Entitic vol] 8.9 fL Normal 6.2-12.0 [facility] Comment on above: Performed By: #### L 501.080 #### [facility] [address] [place], [address] Platelets (Bld) [#/Vol] 269 10*3/uL Normal 150-450 [facility] Comment on above: Performed By: #### L 501.080 #### [facility] [address] [place], [address] RBC (Bld) [#/Vol] 3.40 10*6/uL Low 4.6-6.2 [facility] Comment on above: Performed By: #### L 501.080 #### [facility] [address] [place], [address] RDW SD 47.8 fl High 35.1-43.9 [facility] Comment on above: Performed By: #### L 501.080 #### [facility] [address] [place], [address] WBC (Bld) [#/Vol] 7.8 10*3/uL Normal 4.4-11.0 [facility] Comment on above: Performed By: #### L 501.080 #### [facility] [address] [place], [address] Modified Barium Swallow Stud [facility] 07-07-[address] [facility] Speech Pathology [address] [facility] [place] [address] Modified Barium Swallow Study MR#: [id number] Acct: [id number] Name: NISHAFAWN Lu Rep #: [id number] : 1935 89 From: Lincoln Jensen M.A., [facility]-MINT MACHINE OPERATOR Modified Barium Swallow Patient Information Study Date: 07/07/25 Study Time: 14:00 Direct Billable Minutes: 84 Total Minutes procedure reportin Diagnosis: Dysphagia R13.10 Referring Physician: Jesus Alberto Wiggins Chi Reason for Referral: Re-assess swallow function and risk for aspiration to determine if patient is safe for further diet advancement. 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 Injuries:???1. Right [...] opening/duration, and ineffective cued coughs. Admitted to [facility] 05/20/[address], OT, PT prior to discharge home w/ . ???ST evaluation 05/21/2025 recommended NPO. 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 The patient participated in 10 dysphagia therapy sessions w/ oropharyngeal strengthening in junction w/ NMES, as well as thin water trials w/ MINT MACHINE OPERATOR and vocal adduction exercises. Repeat MBSS 06/15/2025 revealed moderate-severe oropharyngeal dysphagia and esophageal dysphagia w/ recommendations for NPO, Ok for trials of puree and mildly thick liquids w/ MINT MACHINE OPERATOR only. Recommend tsp bites of puree consistencies w/ use of effortful, multiple swallows. Recommend tsp sips of mildly thick liquids w/ use of effortful, multiple swallow and cough/throat clear and re- swallow w/ each sip. Pt was recommended for GI consult, as well. Per treating MINT MACHINE OPERATOR, the patient has tolerated sips of mildly thick liquids via tsp and cup w/o need for cough and re-swallow; however, pudding trials have been difficult for the patient. He underwent EGD 06/17/2025, which revealed abnormal esophageal motility, established achalasia. Dilated. Injected with botulinum toxin". MINT MACHINE OPERATOR clarified w/ Dr. Ferrara re: site of [...] bolus, reduced cough reflex Penetration-Aspiration Scale Score [place] Thick Liquid via teaspoon: Result: 2= enter airway/above vocal folds/ejected [place] Thick Liquid via small single sip: cup: Result: 2= enter airway/above vocal folds/ejected Thin Liquid via teaspoon: Result: 2= enter airway/above v (more content not included)... Normal [facility] Abdomen Single Viewon [address] [facility] Imaging Services [address] [place] [id number] Abdomen Single View MR#: [id number] Acct: [id number] Name: FAWN CAMERON Rep #: [id number] : 1935 M 89 From: Raul Stout MD PCP: Dr. Devan Barrera MD Status: ADM IN Study: Abdomen Single View Date of Exam: 06/28/25 Exam# [id number] Ordering Dr: Jesus Alberto Wiggins MD PROCEDURE: [...] limitations and recommendations discussed above. Reading Location: [id number] CC: Dr. Devan Barrera MD; Dr. Jesus Alberto Wiggins MD [place] Worker: Signed Normal [facility] Modified Barium Swallow Stud n 06-23-[address] 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 Injuries:???1. Right [...] opening/duration, and ineffective cued coughs. Admitted to [facility] 05/20/[address], OT, PT prior to discharge home w/ . ???ST evaluation 05/21/2025 recommended NPO. 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 The patient participated in 10 dysphagia therapy sessions w/ oropharyngeal strengthening in junction w/ NMES, as well as thin water trials w/ MINT MACHINE OPERATOR and vocal adduction exercises. Repeat MBSS 06/15/2025 revealed moderate-severe oropharyngeal dysphagia and esophageal dysphagia w/ recommendations for NPO, Ok for trials of puree and mildly thick liquids w/ MINT MACHINE OPERATOR only. Recommend tsp bites of puree consistencies w/ use of effortful, multiple swallows. Recommend tsp sips of mildly thick liquids w/ use of effortful, multiple swallow and cough/throat clear and re- swallow w/ each sip. Pt was recommended for GI consult, as well. Per treating MINT MACHINE OPERATOR, the patient has tolerated sips of mildly thick liquids via tsp and cup w/o need for cough and re-swallow; however, pudding trials have been difficult for the patient. He underwent EGD 06/17/2025, which revealed abnormal esophageal motility, established achalasia. Dilated. Injected with botulinum toxin". MINT MACHINE OPERATOR clarified w/ Dr. Ferrara re: site of [...] bolus, reduced cough reflex Penetration-Aspiration Scale Score [place] Thick Liquid via teaspoon: Result: 3= enters airways/above vocal folds/not ejected [place] Thick Liquid via small single sip: cup: Result: 4= enters airway/contacts vocal folds/ejected [place] Thick Liquid via small single sip: cup Effortful swallow: Result: 2= enter airway/above vocal folds/ejected Thin Liquid via teaspoon: Result: 1= does not enter airway T (more content not included)... Normal [facility] Urine Cultureon 06-19-2025 [facility] Culture exhibits no growth. Normal [facility] Comment on above: Performed By: #### L 500.4050, L500.4100, L503.0106, L506.1001 #### [facility] [address] [place], [address] Basic Metabolic Profile (BMP )on 06-18-2025 BUN/CRE 27.3 RATIO High 10-20 [facility] Comment on above: Performed By: #### L 500.4050, L500.4100, L503.0106, L506.1001 #### [facility] [address] [place], [address] Calcium [Mass/Vol] 8.3 mg/dL Normal 7.6-11.0 [facility] Comment on above: Performed By: #### L 500.4050, L500.4100, L503.0106, L506.1001 #### [facility] [address] [place], [address] Chloride [Moles/Vol] 99 mmol/L Normal 98-108 [facility] Comment on above: Performed By: #### L 500.4050, L500.4100, L503.0106, L506.1001 #### [facility] [address] [place], [address] CO2 [Moles/Vol] 22.4 mmol/L Normal 21.0-32.0 [facility] Comment on above: Performed By: #### L 500.4050, L500.4100, L503.0106, L506.1001 #### [facility] [address] [place], [address] Creatinine [Mass/Vol] 0.62 mg/dL Low 0.70-1.20 [facility] Comment on above: Performed By: #### L 500.4050, L500.4100, L503.0106, L506.1001 #### [facility] [address] [place], [address] ECRCL 56.49 ml/min Normal 50-250 [facility] Comment on above: Performed By: #### L 500.4050, L500.4100, L503.0106, L506.1001 #### [facility] [address] [place], [address] GAP 9 Normal 5-15 [facility] Comment on above: Performed By: #### L 500.4050, L500.4100, L503.0106, L506.1001 #### [facility] [address] [place], [address] GFR/1.73 sq M.predicted among non-blacks MDRD (S/P/Bld) [Vol rate/Area] 92 mL/min/{1.73_m2} Normal >60 [facility] Comment on above: Result Comment: mL/m in/1.73m2 CKD-EPI Creatinine Equation (2020) Performed By: #### L 500.4050, L500.4100, L503.0106, L506.1001 #### [facility] [address] [place], [address] Glucose [Mass/Vol] 93 mg/dL Normal 70-99 [facility] Comment on above: Performed By: #### L 500.4050, L500.4100, L503.0106, L506.1001 #### [facility] [address] [place], [address] Potassium [Moles/Vol] 4.6 mmol/L Normal 3.3-5.1 [facility] Comment on above: Performed By: #### L 500.4050, L500.4100, L503.0106, L506.1001 #### [facility] [address] [place], [address] Sodium [Moles/Vol] 131 mmol/L Low 133-145 [facility] Comment on above: Performed By: #### L 500.4050, L500.4100, L503.0106, L506.1001 #### [facility] [address] [place], [address] Urea nitrogen [Mass/Vol] 17 mg/dL Normal 4-19 [facility] Comment on above: Performed By: #### L 500.4050, L500.4100, L503.0106, L506.1001 #### [facility] [address] [place], [address] Bilirubin Test strip Ql (U)O rdered By: Jesus Alberto Wiggins on 06-18-2025 Bilirubin Ql (U) Negative Negative [facility] CBC W/Diff, Automatedon 05-23 Absolute Lymph 0.99 X10 3/uL Normal 0.83-4.51 [facility] Comment on above: Performed By: #### L 500.4050, L500.4100, L503.0106, L506.1001 #### [facility] [address] [place], [address] Absolute Neut 4.9 X10 3/uL Normal 2.0-7.7 [facility] Comment on above: Performed By: #### L 500.4050, L500.4100, L503.0106, L506.1001 #### [facility] [address] [place], [address] Basophils/100 WBC (Bld) 0.4 % Normal 0-1 [facility] Comment on above: Performed By: #### L 500.4050, L500.4100, L503.0106, L506.1001 #### [facility] [address] [place], [address] Eosinophils/100 WBC (Bld) 6.1 % High 0-5 [facility] Comment on above: Performed By: #### L 500.4050, L500.4100, L503.0106, L506.1001 #### [facility] [address] [place], [address] Erythrocyte distribution width (RBC) [Ratio] 14.2 % Normal 11.6-14.6 [facility] Comment on above: Performed By: #### L 500.4050, L500.4100, L503.0106, L506.1001 #### [facility] [address] [place], [address] Hematocrit (Bld) [Volume fraction] 32.1 % Low 40-54 [facility] Comment on above: Performed By: #### L 500.4050, L500.4100, L503.0106, L506.1001 #### [facility] [address] [place], [address] Hemoglobin (Bld) [Mass/Vol] 10.8 g/dL Low 13.0-16.5 [facility] Comment on above: Performed By: #### L 500.4050, L500.4100, L503.0106, L506.1001 #### [facility] [address] [place], [address] IG% 0.600 Normal 0.0-0.9 [facility] Comment on above: Result Comment: IG% - Immature Granulocytes (promyelocytes, myelocytes and metamyelocytes) > 1% indicates that a LEFT SHIFT is Present. Performed By: #### L 500.4050, L500.4100, L503.0106, L506.1001 #### [facility] [address] [place], [address] Lymphocytes/100 WBC (Bld) 13.7 % Low 19-41 [facility] Comment on above: Performed By: #### L 500.4050, L500.4100, L503.0106, L506.1001 #### [facility] [address] [place], [address] MCH (RBC) [Entitic mass] 33.2 pg High 27.0-32.0 [facility] Comment on above: Performed By: #### L 500.4050, L500.4100, L503.0106, L506.1001 #### [facility] [address] [place], [address] MCHC (RBC) [Mass/Vol] 33.6 g/dL Normal 32-36 [facility] Comment on above: Performed By: #### L 500.4050, L500.4100, L503.0106, L506.1001 #### [facility] [address] [place], [address] MCV (RBC) [Entitic vol] 98.8 fL High 80-94 [facility] Comment on above: Performed By: #### L 500.4050, L500.4100, L503.0106, L506.1001 #### [facility] [address] [place], [address] Monocytes/100 WBC (Bld) 11.4 % High 0-10 [facility] Comment on above: Performed By: #### L 500.4050, L500.4100, L503.0106, L506.1001 #### [facility] [address] [place], [address] Neutrophils/100 WBC (Bld) 67.8 % Normal 47-70 [facility] Comment on above: Performed By: #### L 500.4050, L500.4100, L503.0106, L506.1001 #### [facility] [address] [place], [address] Nucleated RBC (Bld) [#/Vol] 0 10*3/uL Normal 0-5 [facility] Comment on above: Performed By: #### L 500.4050, L500.4100, L503.0106, L506.1001 #### [facility] [address] [place], [address] Platelet mean volume (Bld) [Entitic vol] 9.0 fL Normal 6.2-12.0 [facility] Comment on above: Performed By: #### L 500.4050, L500.4100, L503.0106, L506.1001 #### [facility] [address] [place], [address] Platelets (Bld) [#/Vol] 291 10*3/uL Normal 150-450 [facility] Comment on above: Performed By: #### L 500.4050, L500.4100, L503.0106, L506.1001 #### [facility] [address] [place], [address] RBC (Bld) [#/Vol] 3.25 10*6/uL Low 4.6-6.2 [facility] Comment on above: Performed By: #### L 500.4050, L500.4100, L503.0106, L506.1001 #### [facility] [address] [place], [address] RDW SD 51.7 fl High 35.1-43.9 [facility] Comment on above: Performed By: #### L 500.4050, L500.4100, L503.0106, L506.1001 #### [facility] [address] [place], [address] WBC (Bld) [#/Vol] 7.2 10*3/uL Normal 4.4-11.0 [facility] Comment on above: Performed By: #### L 500.4050, L500.4100, L503.0106, L506.1001 #### [facility] [address] [place], [address] Ketones Test strip Ql (U)Ord ered By: Jesus Alberto Wiggins on 06-18-2025 Ketones Ql (U) Negative Negative [facility] Microscopic analysis of urin e for red blood cells (RBC)Ordered By: Jesus Alberto Wiggins on 06-18-2025 Microscopic analysis of urine for red blood cells (RBC) 0 SEEN /hpf 0-5 [facility] Mucus LM Ql (Urine sed)Order ed By: Jesus Alberto Wiggins on 06-18-2025 Mucus Ql (Urine sed) 0 SEEN /hpf [facility] Nitrite Test strip Ql (U)Ord ered By: Jesus Alberto Wiggins on 06-18-2025 Nitrite Ql (U) Negative Negative [facility] Protein Test strip Ql (U)Ord ered By: Jesus Alberto Wiggins on 06-18-2025 Protein Ql (U) 30 mg/dl High Negative [facility] Squamous epithelial cells de tection in urine sediment by light microscopyOrdered By: Jesus Alberto Wiggins on 06-18-2025 Epithelial cells.squamous LM Ql (Urine sed) 0 SEEN /hpf 0-5 [facility] Urinalysis, Completeon 06-18 BACTERIA 0 SEEN Normal None Seen [facility] Comment on above: Order Comment: REHAN TER SPECIMEN Performed By: #### L 400.0001 #### [facility] [address] [place], [address] EPI,SQUAMOUS 0 SEEN Normal 0-5 [facility] Comment on above: Order Comment: REHAN TER SPECIMEN Performed By: #### L 400.0001 #### [facility] [address] [place], [address] Mucus Ql (Urine sed) 0 SEEN Normal [facility] Comment on above: Order Comment: REAHN TER SPECIMEN Performed By: #### L 400.0001 #### [facility] [address] [place], [address] RBC 0 SEEN Normal 0-5 [facility] Comment on above: Order Comment: REHAN TER SPECIMEN Performed By: #### L 400.0001 #### [facility] [address] [place], [address] WBC 0 SEEN Normal 0-5 [facility] Comment on above: Order Comment: REHAN TER SPECIMEN Performed By: #### L 400.0001 #### [facility] [address] [place], [address] Urine clarityOrdered By: Jesus Alberto Wiggins on 06-18-2025 Clarity (U) Clear Clear [facility] Urine color determinationOrd ered By: Jesus Alberto Wiggins on 06-18-2025 Color (U) Yellow Yellow [facility] Urine cultureOrdered By: Jesus Alberto Wiggins on 06-18-2025 Bacteria identified Cx Nom (U) Culture exhibits no growth. [facility] Urine glucose detectionOrder ed By: Jesus Alberto Wiggins on 06-18-2025 Glucose Ql (U) Normal mg/dl Normal [facility] Urine leukocyte esterase det ection by dipstickOrdered By: Jesus Alberto Wiggins on 06-18-2025 Leukocyte esterase Test strip Ql (U) Negative Negative [facility] Urine pHOrdered By: Jesus Alberto Wiggins on 06-18-2025 pH (U) 6.0 [pH] 5.0 - 8.0 [facility] Urine sediment bacteria coun t by microscopy (number/high power field)Ordered By: Jesus Alberto Wiggins on 06-18-2025 Bacteria LM.HPF (Urine sed) [#/Area] 0 /[HPF] None Seen [facility] Urine specific gravity measu rementOrdered By: Jesus Alberto Wiggins on 06-18-2025 Specific gravity (U) [Rel density] 1.020 1.002-1.030 [facility] Urine urobilinogen measureme ntOrdered By: Jesus Alberto Wiggins on 06-18-2025 Urobilinogen Ql (U) Normal mg/dl Normal [facility] White blood cell countOrdere d By: Jesus Alberto Wiggins on 06-18-2025 White blood cell count 0 SEEN /hpf 0-5 [facility] 12 Lead EKGon 06-17-[address] [facility] Cardiovascular Services [address] [place] [address] 12 Lead EKG 06/17/25 0500 MR#: [id number] Acct: [id number] Name: FAWN CAMERON Rep #: [id number] : 1935 89 From: Heather Diaz MD Attending Dr: Dr. Jesus Alberto Wiggins MD Status: ADM IN Ordering Dr: Carlos Yang MD Date: 06/17/25 Location: TCU Sex: M C Admitted: 05/20/25 Test Reason [...] previous ECGs available Confirmed by HEATHER DIAZ ([id number]), editor & co founder SEFERINO SAUCEDA ([id number]) on 06/17/2025 2:01:21 PM Referred By: Jesus Alberto Wiggins Confirmed By: HEATHER DIAZ 06/17/25 1401 Date Heather Diaz MD CC: Dr. Devan Barrera MD; Dr. Carlos Yang MD; Dr. Jesus Alberto Wiggins MD Signed Normal [facility] Absolute lymphocyte countOrd ered By: Carlos Yang on 06-17-2025 Lymphocytes Auto (Unsp spec) [#/Vol] 1.17 10*3/uL 0.83-4.51 [facility] Absolute neutrophil countOrd ered By: Carlos Yang on 06-17-2025 Neutrophils (Bld) [#/Vol] 3.8 10*3/uL 2.0-7.7 [facility] Activated partial thrombopla stin time (aPTT) in platelet poor plasma by coagulation aOrdered By: Carlos Yang on 06-17-2025 aPTT Coag (PPP) [Time] 26.3 s 24.1-36.2 [facility] Anion gap in Serum or Plasma Ordered By: Carlos Yang on 06-17-2025 Anion gap [Moles/Vol] 11 mmol/L 5-15 [facility] Automated lymphocyte count a s percentage of total leukocytesOrdered By: Carlos Yang on 06-17-2025 Lymphocytes/100 WBC Auto (Unsp spec) 18.6 % Low 19-41 [facility] BUN/creatinine ratioOrdered By: Carlos Yang on 06-17-2025 Urea nitrogen/Creatinine [Mass ratio] 31.2 mg/mg High 10-20 [facility] Basic Metabolic Profile (BMP )on 06-17-2025 BUN/CRE 31.2 RATIO High - [facility] Comment on above: Performed By: #### L 500.2500, L100.0100 #### [facility] [address] [place], [address] Calcium [Mass/Vol] 8.6 mg/dL Normal 7.6-11.0 [facility] Comment on above: Performed By: #### L 500.2500, L100.0100 #### [facility] [address] [place], [address] Chloride [Moles/Vol] 96 mmol/L Low 98-108 [facility] Comment on above: Performed By: #### L 500.2500, L100.0100 #### [facility] [address] [place], [address] CO2 [Moles/Vol] 23.9 mmol/L Normal 21.0-32.0 [facility] Comment on above: Performed By: #### L 500.2500, L100.0100 #### [facility] [address] [place], [address] Creatinine [Mass/Vol] 0.64 mg/dL Low 0.70-1.20 [facility] Comment on above: Performed By: #### L 500.2500, L100.0100 #### [facility] [address] [place], [address] ECRCL 56.49 ml/min Normal 50-250 [facility] Comment on above: Performed By: #### L 500.2500, L100.0100 #### [facility] [address] [place], [address] GAP 11 Normal 5-15 [facility] Comment on above: Performed By: #### L 500.2500, L100.0100 #### [facility] [address] [place], [address] GFR/1.73 sq M.predicted among non-blacks MDRD (S/P/Bld) [Vol rate/Area] 91 mL/min/{1.73_m2} Normal >60 [facility] Comment on above: Result Comment: mL/m in/1.73m2 CKD-EPI Creatinine Equation (2020) Performed By: #### L 500.2500, L100.0100 #### [facility] [address] [place], [address] Glucose [Mass/Vol] 96 mg/dL Normal 70-99 [facility] Comment on above: Performed By: #### L 500.2500, L100.0100 #### [facility] [address] [place], [address] Potassium [Moles/Vol] 5.0 mmol/L Normal 3.3-5.1 [facility] Comment on above: Performed By: #### L 500.2500, L100.0100 #### [facility] [address] [place], [address] Sodium [Moles/Vol] 131 mmol/L Low 133-145 [facility] Comment on above: Performed By: #### L 500.2500, L100.0100 #### [facility] [address] [place], [address] Urea nitrogen [Mass/Vol] 20 mg/dL High 4-19 [facility] Comment on above: Performed By: #### L 500.2500, L100.0100 #### [facility] [address] [place], [address] Basophil percentageOrdered B y: Carlos Yang on 06-17-2025 Basophils/100 WBC (Bld) 0.6 % 0-1 [facility] CBC W/Diff, Automatedon 05-23 Absolute Lymph 1.17 X10 3/uL Normal 0.83-4.51 [facility] Comment on above: Performed By: #### L 501.080 #### [facility] [address] [place], [address] Absolute Neut 3.8 X10 3/uL Normal 2.0-7.7 [facility] Comment on above: Performed By: #### L 501.080 #### [facility] [address] [place], [address] Basophils/100 WBC (Bld) 0.6 % Normal 0-1 [facility] Comment on above: Performed By: #### L 501.080 #### [facility] [address] [place], [address] Eosinophils/100 WBC (Bld) 8.1 % High 0-5 [facility] Comment on above: Performed By: #### L 501.080 #### [facility] [address] [place], [address] Erythrocyte distribution width (RBC) [Ratio] 14.3 % Normal 11.6-14.6 [facility] Comment on above: Performed By: #### L 501.080 #### [facility] [address] [place], [address] Hematocrit (Bld) [Volume fraction] 31.2 % Low 40-54 [facility] Comment on above: Performed By: #### L 501.080 #### [facility] [address] [place], [address] Hemoglobin (Bld) [Mass/Vol] 10.4 g/dL Low 13.0-16.5 [facility] Comment on above: Performed By: #### L 501.080 #### [facility] [address] [place], [address] IG% 0.600 Normal 0.0-0.9 [facility] Comment on above: Result Comment: IG% - Immature Granulocytes (promyelocytes, myelocytes and metamyelocytes) > 1% indicates that a LEFT SHIFT is Present. Performed By: #### L 501.080 #### [facility] [address] [place], [address] Lymphocytes/100 WBC (Bld) 18.6 % Low 19-41 [facility] Comment on above: Performed By: #### L 501.080 #### [facility] [address] [place], [address] MCH (RBC) [Entitic mass] 32.9 pg High 27.0-32.0 [facility] Comment on above: Performed By: #### L 501.080 #### [facility] [address] [place], [address] MCHC (RBC) [Mass/Vol] 33.3 g/dL Normal 32-36 [facility] Comment on above: Performed By: #### L 501.080 #### [facility] [address] [place], [address] MCV (RBC) [Entitic vol] 98.7 fL High 80-94 [facility] Comment on above: Performed By: #### L 501.080 #### [facility] [address] [place], [address] Monocytes/100 WBC (Bld) 12.2 % High 0-10 [facility] Comment on above: Performed By: #### L 501.080 #### [facility] [address] [place], [address] Neutrophils/100 WBC (Bld) 59.9 % Normal 47-70 [facility] Comment on above: Performed By: #### L 501.080 #### [facility] [address] [place], [address] Nucleated RBC (Bld) [#/Vol] 0 10*3/uL Normal 0-5 [facility] Comment on above: Performed By: #### L 501.080 #### [facility] [address] [place], [address] Platelet mean volume (Bld) [Entitic vol] 9.0 fL Normal 6.2-12.0 [facility] Comment on above: Performed By: #### L 501.080 #### [facility] [address] [place], [address] Platelets (Bld) [#/Vol] 285 10*3/uL Normal 150-450 [facility] Comment on above: Performed By: #### L 501.080 #### [facility] [address] [place], [address] RBC (Bld) [#/Vol] 3.16 10*6/uL Low 4.6-6.2 [facility] Comment on above: Performed By: #### L 501.080 #### [facility] [address] [place], [address] RDW SD 52.4 fl High 35.1-43.9 [facility] Comment on above: Performed By: #### L 501.080 #### [facility] [address] [place], [address] WBC (Bld) [#/Vol] 6.3 10*3/uL Normal 4.4-11.0 [facility] Comment on above: Performed By: #### L 501.080 #### [facility] [address] [place], [address] Carbon dioxide, total [Moles /volume] in Central venous bloodOrdered By: Carlos Yang on 06-17-2025 CO2 [Moles/Vol] 23.9 mmol/L 21.0-32.0 [facility] Chloride assayOrdered By: Tanja Yang on 06-17-2025 Chloride [Moles/Vol] 96 mmol/L Low 98-108 [facility] EGD Reporton 06-17-[address] [facility] Medical Records Department [address] [place] [address] EGD Report MR#: [id number] Acct: [id number] Name: FAWN CAMERON Rep #: [id number] : 1935 89 From: Stan Ferrara DO PCP: Dr. Devan Barrera MD Status:[place] [facility] Patient Name: Fawn Cameron Procedure Date: 06/17/2025 [...] collected. Recommendation: - Discharge patient to a senior living. - Resume previous diet. - Continue present medications. Procedure Code(s): --- Professional --- 99839, Esophagogastroduodenos copy, flexible, transoral; with insertion of guide wire followed by passage of dilator(s) through esophagus over guide wire 49541, 59,51, Esophagogastroduodenos copy, flexible, transoral; with directed submucosal injection(s), any substance CPT copyright 2021 [employer]. All rights reserved. The codes documented in this report are preliminary and upon glue bone drier review may be revised to meet current compliance requirements. Stan Ferrara DO 06/17/2025 4:50:01 PM This report has been signed electronically. Number of Addenda: 0 Note Initiated On: 06/17/2025 3:54 PM 06/17/25 1650 Date Stan Friend DO Juliana Signature: Date (if indicated) CC: Dr. Devan Barrera MD; Stan Ferrara, Date Dictated: 06/17/25 1554 Date Transcribed: Barrow Worker: RF Signed Normal [facility] Electrocardiogram reportOrde red By: Heather Diaz on 06-17-[address] [facility] Cardiovascular Services [address] [place] [address] 12 Lead EKG 06/17/25 0500 MR#: [id number] Acct: [id number] Name: FAWN CAMERON Rep #:[id number] : 1935 89 From: Heather Diaz MD Attending Dr: Dr. Jesus Alberto Wiggins MD Status: ADM IN Ordering Dr: Carlos Yang MD Date: Location: [facility] Sex: M C Admitted: 05/20/25 Test Reason [...] previous ECGs available Confirmed by HEATHER DIAZ ([id number]), editor & co founder SEFERINO SAUCEDA ([id number]) on 06/17/2025 2:01:21 PM Referred By: Jesus Alberto Wiggins Confirmed By: HEATHER DIAZ 06/17/25 1401 Date _ Heather Diaz MD CC: Dr. Devan Barrera MD; Dr. Carlos Ynag MD; Dr. Jesus Alberto Wiggins MD ~ Signed [facility] Work Phone: Eosinophil percentageOrdered By: Carlos Yang on 06-17-2025 Eosinophils/100 WBC (Bld) 8.1 % High 0-5 [facility] Erythrocyte distribution wid th ratioOrdered By: Carlosayesha Yang on 06-17-2025 Erythrocyte distribution width (RBC) [Ratio] 14.3 % 11.6-14.6 [facility] Erythrocyte distribution wid th standard deviationOrdered By: Carlos Yang on 06-17-2025 Erythrocyte distribution width (RBC) [Ratio] 52.4 fl High 35.1-43.9 [facility] Glomerular filtration rate ( GFR) estimation/1.73 sq m using serum, plasma, or whole bOrdered By: Carlosayesha Yang on 06-17-2025 GFR/1.73 sq M.predicted among non-blacks MDRD (S/P/Bld) [Vol rate/Area] 91 mL/min/{1.73_m2} >60 [facility] Comment on above: mL/min/1.73m2 CKD-EP I Creatinine Equation (2020) Hematocrit Auto (Bld) [Volum e fraction]Ordered By: Carlos Yang on 06-17-2025 Hematocrit (Bld) [Volume fraction] 31.2 % Low 40-54 [facility] Hemoglobin measurementOrdere d By: Carlos Yang on 06-17-2025 Hemoglobin (Bld) [Mass/Vol] 10.4 g/dL Low 13.0-16.5 [facility] Immature granulocytes/100 WB C Auto (Bld)Ordered By: Carlos Yang 06-17-2025 Immature granulocytes/100 WBC (Bld) 0.600 % 0.0-0.9 [facility] Comment on above: IG% - Immature Granu locytes (promyelocytes, myelocytes and metamyelocytes) > 1% indicates that a LEFT SHIFT is Present. International normalized rat io (INR) calculationOrdered By: Carlos Yang on 06-17-2025 INR Coag (Bld) [Relative time] 1.0 {INR} [facility] MCV (mean corpuscular volume ) determinationOrdered By: Carlos Yang 06-17-2025 MCV (RBC) [Entitic vol] 98.7 fL High 80-94 [facility] MR/OP.PROVATon 06-17-2025 [facility] Medical Records Department [address] [place] [address] Provation Physician Letter MR#: [id number] Acct: [id number] Name: FAWN CAMERON Rep #: [id number] : 1935 89 From: Stan Ferrara DO PCP: Dr. Devan Barrera MD Status:REG [facility] 06/17/2025 Devan Barrera Re : Upper GI endoscopy procedure for Fawn Cameron [place] This procedure was performed on Tuesday, June 17, 2025. My impressions and recommendations are as follows: Impressions : - Abnormal esophageal motility, established achalasia. Dilated. Injected with botulinum toxin. - Intact gastrostomy with a patent G-tube present. - No gross lesions in the entire examined duodenum. - No specimens collected. Recommendations : - Discharge patient to a senior living. - Resume previous diet. - Continue present [...] DO Date Dictated: 06/17/25 1554 Date Transcribed: Barrow Worker: CALIXTO Signed [facility] MR/POSTOP.ANEjuana 06-17-2025 MR/POSTOP.[facility] Medical Records Department [address] [place] [address] Anesthesia Postop Eval I 06/17/25 1636 MR#: [id number] Acct: [id number] Name: FAWN CAMERON Rep #: [id number] : 1935 89 From: Karri Howell CRNA PCP: Dr. Devan Barrera MD Status:REG SDC Y Race: C Location: [place] [address] Anesthesia: Postop Eval I Current Vital Signs Temperature: 98.1 F Pulse Rate: 79 Blood Pressure: 110/65 Respiratory Rate: 16 Pulse Ox: 95 Assessment Airway patent: Yes Spontaneous unlabored respirations: Yes nausea: No Vomiting: No Anesthesia Complication: No Fluid Hydration Crystalloid volume administer (ml): 500 Total IV fluid infused: 500 Progress Note Anesthesia document: Postop Eval 1 completed: Yes 06/17/251636 Date Karri Howell PUBLIC WEIGHER Cosigner Signature: Date CC: Signed Normal [facility] Mean corpuscular hemoglobin (MCH) determinationOrdered By: Carlos Yang on 06-17-2025 MCH (RBC) [Entitic mass] 32.9 pg High 27.0-32.0 [facility] Mean corpuscular hemoglobin concentration (MCHC) determinationOrdered By: Carlos Yang on 06-17-2025 MCHC (RBC) [Mass/Vol] 33.3 g/dL 32-36 [facility] Mean platelet volume determi nationOrdered By: Carlos Yang on 06-17-2025 Platelet mean volume (Bld) [Entitic vol] 9.0 fL 6.2-12.0 [facility] Monocyte percentageOrdered B y: Carlos Yang on 06-17-2025 Monocytes/100 WBC (Bld) 12.2 % High 0-10 [facility] Neutrophil percentageOrdered By: Carlos Yang on 06-17-2025 Neutrophils/100 WBC (Bld) 59.9 % 47-70 [facility] Nucleated red blood cell per centageOrdered By: Carlos Yang on 06-17-2025 Nucleated RBC/100 WBC (Bld) [Ratio] 0 % 0-5 [facility] Partial Thromboplast Timeon 06-17-2025 aPTT Coag (Bld) [Time] 26.3 s Normal 24.1-36.2 [facility] Comment on above: Performed By: #### L 500.2500, L100.0100 #### [facility] [address] [place], [address] Platelet countOrdered By: Tanja Yang on 06-17-2025 Platelets (Bld) [#/Vol] 285 10*3/uL 150-450 [facility] Potassium measurement (mass/ volume)Ordered By: Carlos Yang on 06-17-2025 Potassium (Unsp spec) [Mass/Vol] 5.0 mmol/L 3.3-5.1 [facility] Prothrombin Time w/INRon INR Coag (PPP) [Relative time] 1.0 {INR} Normal [facility] Comment on above: Performed By: #### L 501.080 #### [facility] [address] [place], [address] PT Coag (PPP) [Time] 13.8 s Normal 11.7-14.9 [facility] Comment on above: Performed By: #### L 501.080 #### [facility] [address] [place], [address] Prothrombin timeOrdered By: Carlos Yang on 06-17-2025 PT Coag (PPP) [Time] 13.8 s 11.7-14.9 [facility] RBC Auto (Bld) [#/Vol]Ordere d By: Carlos Yang on 06-17-2025 RBC (Bld) [#/Vol] 3.16 10*6/uL Low 4.6-6.2 [facility] Serum creatinine measurement (mass/volume)Ordered By: Carlos Yang on 06-17-2025 Creatinine [Mass/Vol] 0.64 mg/dL Low 0.70-1.20 [facility] Serum glucose measurement (m ass/volume)Ordered By: Carlosayesha Yang on 06-17-2025 Glucose [Mass/Vol] 96 mg/dL 70-99 [facility] Serum or plasma calcium praveen urement (mass/volume)Ordered By: Carlosayesha Yang on 06-17-2025 Calcium [Mass/Vol] 8.6 mg/dL 7.6-11.0 [facility] Serum or plasma urea nitroge n measurement (mass/volume)Ordered By: Carlosayesha Yang on 06-17-2025 Urea nitrogen [Mass/Vol] 20 mg/dL High 4-19 [facility] Sodium levelOrdered By: Carlosayesha Yang on 06-17-2025 Sodium [Moles/Vol] 131 mmol/L Low 133-145 [facility] White blood cell (WBC) count Ordered By: Carlosayesha Yang on 06-17-2025 WBC (Bld) [#/Vol] 6.3 10*3/uL 4.4-11.0 [facility] Bedside Glucoseon 06-15-2025 FINGERSTICK GLU 94 mg/dL Normal 74-106 [facility] Comment on above: Result Comment: MINDY GEMENT OF PATIENT CARE PER NURSING PROTOCOL Performed By: #### L 500.4050, L500.4100, L503.0106, L506.1001 #### [facility] [address] [place], [address] FINGERSTICK GLU 123 mg/dL High 74-106 [facility] Comment on above: Result Comment: MINDY GEMENT OF PATIENT CARE PER NURSING PROTOCOL Performed By: #### L 500.2500, L100.0100 #### [facility] [address] [place], [address] COVID 19 AG RAPID (ANNA Bland)on 06-15-2025 [...] RAPID METHOD BinaxNow COVID19 Ag Card Normal [facility] Comment on above: Performed By: #### L 500.4050, L500.4100, L503.0106, L506.1001 #### [facility] [address] [place], [address] COVID-19 virus antigen assay Ordered By: Jesus Alberto Wiggins on 06-15-2025 SARS-CoV-2 (COVID-19) Ag IA.rapid Ql (Resp) [facility] Glucose [facility] deOrdered By: Jesus Alberto Wiggins on 06-15-2025 Glucose [Mass/Vol] 94 mg/dL 74-106 [facility] Comment on above: MANAGEMENT OF PATIEN T CARE PER NURSING PROTOCOL MR/CON.PCM.Mary 06-15-2025 MR/CON.PCM.[facility] Medical Records Department [address] [place] [address] Consultation - GI 06/15/25 1807 MR#: [id number] Acct: [id number] Name: FAWN CAMERON Rep #: [id number] : 1935 89 From: Stan Ferrara DO PCP: Dr. Devan Barrera MD Status:ADM IN Location: [place] [address] HPI Consult Data Date of Consult: 06/15/25 [...] motility, but a full evaluation is warranted. [facility] Medical History Dysphagia Hyperlipidemia Depression BPH (benign [...] PO QHS Constipation 05/20 Unknown History vitamins A,C,M-ipxa-deiitr 4,296 1 cap PO DAILY Eye Vitamin 5 Unknown History mcg-226 mg-90 mg capsule (Healthy Eyes SuperVision) doxazosin 4 mg tablet (Cardura) 4 mg PO QHS 05/25/25 Unknown Histo ry lactose-reduced food-fiber 0.07 See Rx Instructions feeding tube 0 05/25/25 Unknown History gram-1.5 kcal/mL liquid for tube .COMPLEX feed (Isosource 1.5 Randy) m (more content not included)... Normal [facility] Modified Barium Swallow Stud yon 06-15-[address] 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 Injuries:???1. Right [...] opening/duration, and ineffective cued coughs. Admitted to [facility] 05/20/[address], OT, PT prior to discharge home w/ . ???ST evaluation 05/21/2025 recommended NPO. 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 He has participated in 10 dysphagia therapy sessions w/ oropharyngeal strengthening in junction w/ NMES, as well as thin water trials w/ MINT MACHINE OPERATOR and vocal adduction exercises. The patient has [...] to mostly clear aspirated and penetrated contrast. [place] Thick Liquid via teaspoon: Result: 3= enters airways/above vocal folds/not ejected [place] Thick Liquid via teaspoon Trial 2: Result: 3= enters airways/above vocal folds/not ejected [place] Thick Liquid via small single sip: cup: Result: 3= enters airways/above vocal folds/not ejected Pudding via teaspoon: Result: 2= enter airway/above vocal folds/ejected Comment: Esophageal screen - Retention throughout the esophagus. [place] Thick Liquid via small single sip: cup Trial 2: Result: 7= enters airways/below vocal folds/not ejected despite effort Comment: Esophageal screen - Liquid wash somewhat cleared pudding retention in the esophagus; however, significant barium pudding retention remained in the middle esophagus after liquid wash. [place] Thick Liquid Trial 3: Result: 5= enters airways/contacts vocal folds/not ejected Comment: Reflexive throat appeared to fully clear penetrated contrast from the vocal folds and laryngeal vestibule. [place] Thick Liquid w/ Cued effortful, multiple (more content not included)... Normal [facility] Bedside Glucoseon 06-14-2025 FINGERSTICK GLU 97 mg/dL Normal 74-106 [facility] Comment on above: Result Comment: MINDY GEMENT OF PATIENT CARE PER NURSING PROTOCOL Performed By: #### L 500.2500, L100.0100 #### [facility] [address] [facility] [address] FINGERSTICK GLU 94 mg/dL Normal 74-106 [facility] Comment on above: Result Comment: MINDY GEMENT OF PATIENT CARE PER NURSING PROTOCOL Performed By: #### L 500.2500, L100.0100 #### [facility] [address] [facility] [address] Bedside Glucoseon 06-13-2025 FINGERSTICK GLU 144 mg/dL High 74-106 [facility] Comment on above: Result Comment: MINDY GEMENT OF PATIENT CARE PER NURSING PROTOCOL Performed By: #### L 500.2500, L100.0100 #### [facility] [address] [facility] [address] FINGERSTICK GLU 131 mg/dL High 74-106 [facility] Comment on above: Result Comment: MINDY GEMENT OF PATIENT CARE PER NURSING PROTOCOL Performed By: #### L 500.2500, L100.0100 #### [facility] [address] [facility] [address] FINGERSTICK GLU 90 mg/dL Normal 74-106 [facility] Comment on above: Result Comment: MINDY GEMENT OF PATIENT CARE PER NURSING PROTOCOL Performed By: #### L 500.2500, L100.0100 #### [facility] [address] [place], [address] FINGERSTICK GLU 110 mg/dL High 74-106 [facility] Comment on above: Result Comment: MINDY GEMENT OF PATIENT CARE PER NURSING PROTOCOL Performed By: #### L 501.080 #### [facility] [address] [place], [address] COVID 19 AG RAPID (ANAN Bland)on 06-13-2025 SARS-CoV-2 (COVID-19) RNA DONY+probe Ql [...] RAPID METHOD BinaxNow COVID19 Ag Card Normal [facility] Comment on above: Performed By: #### L 500.4050, L500.4100, L503.0106, L506.1001 #### [facility] [address] [place], [address] COVID-19 virus antigen assay Ordered By: Jesus Alberto Wiggins on 06-13-2025 SARS-CoV-2 (COVID-19) Ag IA.rapid Ql (Resp) [facility] Bedside Glucoseon 06-12-2025 FINGERSTICK GLU 91 mg/dL Normal 74-106 [facility] Comment on above: Result Comment: MINDY GEMENT OF PATIENT CARE PER NURSING PROTOCOL Performed By: #### L 501.080 #### [facility] [address] [place], [address] FINGERSTICK GLU 106 mg/dL Normal 74-106 [facility] Comment on above: Result Comment: MINDY GEMENT OF PATIENT CARE PER NURSING PROTOCOL Performed By: #### L 500.2500, L100.0100 #### [facility] [address] [place], [address] Basic Metabolic Profile (BMP )on 06-11-2025 BUN/CRE 27.7 RATIO High 10-20 [facility] Comment on above: Performed By: #### L 501.080 #### [facility] [address] [place], [address] Calcium [Mass/Vol] 8.4 mg/dL Normal 7.6-11.0 [facility] Comment on above: Performed By: #### L 501.080 #### [facility] [address] [place], [address] Chloride [Moles/Vol] 100 mmol/L Normal 98-108 [facility] Comment on above: Performed By: #### L 501.080 #### [facility] [address] [place], [address] CO2 [Moles/Vol] 24.1 mmol/L Normal 21.0-32.0 [facility] Comment on above: Performed By: #### L 501.080 #### [facility] [address] [place], [address] Creatinine [Mass/Vol] 0.59 mg/dL Low 0.70-1.20 [facility] Comment on above: Performed By: #### L 501.080 #### [facility] [address] [place], [address] ECRCL 56.49 ml/min Normal 50-250 [facility] Comment on above: Performed By: #### L 501.080 #### [facility] [address] [place], [address] GAP 10 Normal 5-15 [facility] Comment on above: Performed By: #### L 501.080 #### [facility] [address] [place], [address] GFR/1.73 sq M.predicted among non-blacks MDRD (S/P/Bld) [Vol rate/Area] 93 mL/min/{1.73_m2} Normal >60 [facility] Comment on above: Result Comment: mL/m in/1.73m2 CKD-EPI Creatinine Equation (2020) Performed By: #### L 501.080 #### [facility] [address] [place], [address] Glucose [Mass/Vol] 113 mg/dL High 70-99 [facility] Comment on above: Performed By: #### L 501.080 #### [facility] [address] [place], [address] Potassium [Moles/Vol] 4.5 mmol/L Normal 3.3-5.1 [facility] Comment on above: Performed By: #### L 501.080 #### [facility] [address] [place], [address] Sodium [Moles/Vol] 134 mmol/L Normal 133-145 [facility] Comment on above: Performed By: #### L 501.080 #### [facility] [address] [place], [address] Urea nitrogen [Mass/Vol] 16 mg/dL Normal 4-19 [facility] Comment on above: Performed By: #### L 501.080 #### [facility] [address] [place], [address] Bedside Glucoseon 06-11-2025 FINGERSTICK GLU 119 mg/dL High 74-106 [facility] Comment on above: Result Comment: MINDY GEMENT OF PATIENT CARE PER NURSING PROTOCOL Performed By: #### L 500.2500, L100.0100 #### [facility] [address] [place], [address] FINGERSTICK GLU 84 mg/dL Normal 74-106 [facility] Comment on above: Result Comment: MINDY GEMENT OF PATIENT CARE PER NURSING PROTOCOL Performed By: #### L 400.0001 #### [facility] [address] [place], [address] FINGERSTICK GLU 108 mg/dL High 74-106 [facility] Comment on above: Result Comment: MINDY GEMENT OF PATIENT CARE PER NURSING PROTOCOL Performed By: #### L 500.2500, L100.0100 #### [facility] [address] [place], [address] FINGERSTICK GLU 100 mg/dL Normal 74-106 [facility] Comment on above: Result Comment: MINDY GEMENT OF PATIENT CARE PER NURSING PROTOCOL Performed By: #### L 400.0001 #### [facility] [address] [place], [address] CBC W/Diff, Automatedon 05-23 Absolute Lymph 0.70 X10 3/uL Low 0.83-4.51 [facility] Comment on above: Performed By: #### L 501.080 #### [facility] [address] [place], [address] Absolute Neut 7.9 X10 3/uL High 2.0-7.7 [facility] Comment on above: Performed By: #### L 501.080 #### [facility] [address] [place], [address] Basophils/100 WBC (Bld) 0.5 % Normal 0-1 [facility] Comment on above: Performed By: #### L 501.080 #### [facility] [address] [place], [address] Eosinophils/100 WBC (Bld) 5.9 % High 0-5 [facility] Comment on above: Performed By: #### L 501.080 #### [facility] [address] [place], [address] Erythrocyte distribution width (RBC) [Ratio] 14.7 % High 11.6-14.6 [facility] Comment on above: Performed By: #### L 501.080 #### [facility] [address] [place], [address] Hematocrit (Bld) [Volume fraction] 29.9 % Low 40-54 [facility] Comment on above: Performed By: #### L 501.080 #### [facility] [address] [place], [address] Hemoglobin (Bld) [Mass/Vol] 9.7 g/dL Low 13.0-16.5 [facility] Comment on above: Performed By: #### L 501.080 #### [facility] [address] [place], [address] IG% 0.600 Normal 0.0-0.9 [facility] Comment on above: Result Comment: IG% - Immature Granulocytes (promyelocytes, myelocytes and metamyelocytes) > 1% indicates that a LEFT SHIFT is Present. Performed By: #### L 501.080 #### [facility] [address] [place], [address] Lymphocytes/100 WBC (Bld) 6.7 % Low 19-41 [facility] Comment on above: Performed By: #### L 501.080 #### [facility] [address] [place], [address] MCH (RBC) [Entitic mass] 32.3 pg High 27.0-32.0 [facility] Comment on above: Performed By: #### L 501.080 #### [facility] [address] [place], [address] MCHC (RBC) [Mass/Vol] 32.4 g/dL Normal 32-36 [facility] Comment on above: Performed By: #### L 501.080 #### [facility] [address] [place], [address] MCV (RBC) [Entitic vol] 99.7 fL High 80-94 [facility] Comment on above: Performed By: #### L 501.080 #### [facility] [address] [place], [address] Monocytes/100 WBC (Bld) 10.2 % High 0-10 [facility] Comment on above: Performed By: #### L 501.080 #### [facility] [address] [place], [address] Neutrophils/100 WBC (Bld) 76.1 % High 47-70 [facility] Comment on above: Performed By: #### L 501.080 #### [facility] [address] [place], [address] Nucleated RBC (Bld) [#/Vol] 0 10*3/uL Normal 0-5 [facility] Comment on above: Performed By: #### L 501.080 #### [facility] [address] [place], [address] Platelet mean volume (Bld) [Entitic vol] 8.9 fL Normal 6.2-12.0 [facility] Comment on above: Performed By: #### L 501.080 #### [facility] [address] [place], [address] Platelets (Bld) [#/Vol] 216 10*3/uL Normal 150-450 [facility] Comment on above: Performed By: #### L 501.080 #### [facility] [address] [place], [address] RBC (Bld) [#/Vol] 3.00 10*6/uL Low 4.6-6.2 [facility] Comment on above: Performed By: #### L 501.080 #### [facility] [address] [place], [address] RDW SD 53.9 fl High 35.1-43.9 [facility] Comment on above: Performed By: #### L 501.080 #### [facility] [address] [place], [address] WBC (Bld) [#/Vol] 10.4 10*3/uL Normal 4.4-11.0 [facility] Comment on above: Performed By: #### L 501.080 #### [facility] [address] [place], [address] COVID 19 AG RAPID (ANNA Bland)on 06-11-2025 [...] RAPID METHOD BinaxNow COVID19 Ag Card Normal [facility] Comment on above: Performed By: #### L 500.4050, L500.4100, L503.0106, L506.1001 #### [facility] [address] [place], [address] COVID-19 virus antigen assay Ordered By: Jesus Alberto Wiggins on 06-11-2025 SARS-CoV-2 (COVID-19) Ag IA.rapid Ql (Resp) [facility] Bedside Glucoseon 06-10-2025 FINGERSTICK GLU 91 mg/dL Normal 74-106 [facility] Comment on above: Result Comment: MINDY GEMENT OF PATIENT CARE PER NURSING PROTOCOL Performed By: #### L 500.2500, L100.0100 #### [facility] [address] [place], [address] FINGERSTICK GLU 86 mg/dL Normal 74-106 [facility] Comment on above: Result Comment: MINDY GEMENT OF PATIENT CARE PER NURSING PROTOCOL Performed By: #### L 501.080 #### [facility] [address] [place], [address] Bedside Glucoseon 06-09-2025 FINGERSTICK GLU 103 mg/dL Normal 74-106 [facility] Comment on above: Result Comment: MINDY GEMENT OF PATIENT CARE PER NURSING PROTOCOL Performed By: #### L 500.4050, L500.4100, L503.0106, L506.1001 #### [facility] [address] [place], [address] FINGERSTICK GLU 147 mg/dL High 74-106 [facility] Comment on above: Result Comment: MINDY GEMENT OF PATIENT CARE PER NURSING PROTOCOL Performed By: #### L 500.4050, L500.4100, L503.0106, L506.1001 #### [facility] [address] [place], [address] FINGERSTICK GLU 129 mg/dL High 74-106 [facility] Comment on above: Result Comment: MINDY GEMENT OF PATIENT CARE PER NURSING PROTOCOL Performed By: #### L 500.2500, L100.0100 #### [facility] [address] [place], [address] FINGERSTICK GLU 112 mg/dL High 74-106 [facility] Comment on above: Result Comment: MINDY GEMENT OF PATIENT CARE PER NURSING PROTOCOL Performed By: #### L 500.4050, L500.4100, L503.0106, L506.1001 #### [facility] [address] [place] [place], [address] Abdomen Single Viewon [address] [facility] [address] [place] [address] Abdomen Single View MR#: [id number] Acct: [id number] Name: FAWN CAMERON Rep #: [id number] : 1935 M 89 From: Tra Brown MD PCP: Dr. Devan Barrera MD Status: ADM IN Study: Abdomen Single View Date of Exam: 06/08/25 Exam# [id number] Ordering Dr: Jesus Alberto Wiggins MD PROCEDURE: [...] acute abnormality. Nonobstructive gas pattern. Reading Location: [id number] CC: Dr. Devan Barrera MD; Dr. Jesus Alberto Wiggins MD [place] Worker: Signed Normal [facility] Bedside Glucoseon 06-08-2025 FINGERSTICK GLU 102 mg/dL Normal 74-106 [facility] Comment on above: Result Comment: MINDY GEMENT OF PATIENT CARE PER NURSING PROTOCOL Performed By: #### L 500.4050, L500.4100, L503.0106, L506.1001 #### [facility] [address] [place], [address] FINGERSTICK GLU 89 mg/dL Normal 74-106 [facility] Comment on above: Result Comment: MINDY GEMENT OF PATIENT CARE PER NURSING PROTOCOL Performed By: #### L 500.2500, L100.0100 #### [facility] [address] [place], [address] FINGERSTICK GLU 118 mg/dL High -106 [facility] Comment on above: Result Comment: MINDY GEMENT OF PATIENT CARE PER NURSING PROTOCOL Performed By: #### L 500.2500, L100.0100 #### [facility] [address] [place], [address] Bedside Glucoseon 06-07-2025 FINGERSTICK GLU 119 mg/dL High -106 [facility] Comment on above: Result Comment: MINDY GEMENT OF PATIENT CARE PER NURSING PROTOCOL Performed By: #### L 501.080 #### [facility] [address] [place], [address] FINGERSTICK GLU 106 mg/dL Normal 74-106 [facility] Comment on above: Result Comment: MINDY GEMENT OF PATIENT CARE PER NURSING PROTOCOL Performed By: #### L 501.080 #### [facility] [address] [place], [address] FINGERSTICK GLU 104 mg/dL Normal 74-106 [facility] Comment on above: Result Comment: MINDY GEMENT OF PATIENT CARE PER NURSING PROTOCOL Performed By: #### L 500.2500, L100.0100 #### [facility] [address] [place], [address] Bedside Glucoseon 06-06-2025 FINGERSTICK GLU 102 mg/dL Normal 74-106 [facility] Comment on above: Result Comment: MINDY GEMENT OF PATIENT CARE PER NURSING PROTOCOL Performed By: #### L 501.080 #### [facility] [address] [place], [address] FINGERSTICK GLU 88 mg/dL Normal 74-106 [facility] Comment on above: Result Comment: MINDY GEMENT OF PATIENT CARE PER NURSING PROTOCOL Performed By: #### L 500.2500, L100.0100 #### [facility] [address] [place], [address] FINGERSTICK GLU 106 mg/dL Normal 74-106 [facility] Comment on above: Result Comment: MINDY GEMENT OF PATIENT CARE PER NURSING PROTOCOL Performed By: #### L 500.4050, L500.4100, L503.0106, L506.1001 #### [facility] [address] [place], [address] Bedside Glucoseon 06-05-2025 FINGERSTICK GLU 127 mg/dL High 74-106 [facility] Comment on above: Result Comment: Dext willow 50 Given MANAGEMENT OF PATIENT CARE PER NURSING PROTOCOL Performed By: #### L 501.080 #### [facility] [address] [place], [address] FINGERSTICK GLU 110 mg/dL High 74-106 [facility] Comment on above: Result Comment: MINDY GEMENT OF PATIENT CARE PER NURSING PROTOCOL Performed By: #### L 501.080 #### [facility] [address] [place], [address] FINGERSTICK GLU 97 mg/dL Normal 74-106 [facility] Comment on above: Result Comment: MINDY GEMENT OF PATIENT CARE PER NURSING PROTOCOL Performed By: #### L 500.4050, L500.4100, L503.0106, L506.1001 #### [facility] [address] [place], [address] Basic Metabolic Profile (BMP )on 06-04-2025 BUN/CRE 24.9 RATIO High 10-20 [facility] Comment on above: Performed By: #### L 500.4050, L500.4100, L503.0106, L506.1001 #### [facility] [address] [place], [address] Calcium [Mass/Vol] 8.0 mg/dL Normal 7.6-11.0 [facility] Comment on above: Performed By: #### L 500.4050, L500.4100, L503.0106, L506.1001 #### [facility] [address] [place], [address] Chloride [Moles/Vol] 105 mmol/L Normal 98-108 [facility] Comment on above: Performed By: #### L 500.4050, L500.4100, L503.0106, L506.1001 #### [facility] [address] [place], [address] CO2 [Moles/Vol] 22.9 mmol/L Normal 21.0-32.0 [facility] Comment on above: Performed By: #### L 500.4050, L500.4100, L503.0106, L506.1001 #### [facility] [address] [place], [address] Creatinine [Mass/Vol] 0.69 mg/dL Low 0.70-1.20 [facility] Comment on above: Performed By: #### L 500.4050, L500.4100, L503.0106, L506.1001 #### [facility] [address] [place], [address] ECRCL 56.19 ml/min Normal 50-250 [facility] Comment on above: Performed By: #### L 500.4050, L500.4100, L503.0106, L506.1001 #### [facility] [address] [place], [address] GAP 9 Normal 5-15 [facility] Comment on above: Performed By: #### L 500.4050, L500.4100, L503.0106, L506.1001 #### [facility] [address] [place], [address] GFR/1.73 sq M.predicted among non-blacks MDRD (S/P/Bld) [Vol rate/Area] 88 mL/min/{1.73_m2} Normal >60 [facility] Comment on above: Result Comment: mL/m in/1.73m2 CKD-EPI Creatinine Equation (2020) Performed By: #### L 500.4050, L500.4100, L503.0106, L506.1001 #### [facility] [address] [place], [address] Glucose [Mass/Vol] 79 mg/dL Normal 70-99 [facility] Comment on above: Performed By: #### L 500.4050, L500.4100, L503.0106, L506.1001 #### [facility] [address] [place], [address] Potassium [Moles/Vol] 4.3 mmol/L Normal 3.3-5.1 [facility] Comment on above: Performed By: #### L 500.4050, L500.4100, L503.0106, L506.1001 #### [facility] [address] [place], [address] Sodium [Moles/Vol] 137 mmol/L Normal 133-145 [facility] Comment on above: Performed By: #### L 500.4050, L500.4100, L503.0106, L506.1001 #### [facility] [address] [place], [address] Urea nitrogen [Mass/Vol] 17 mg/dL Normal 4-19 [facility] Comment on above: Performed By: #### L 500.4050, L500.4100, L503.0106, L506.1001 #### [facility] [address] [place], [address] Bedside Glucoseon 06-04-2025 FINGERSTICK GLU 87 mg/dL Normal 74-106 [facility] Comment on above: Result Comment: MINDY GEMENT OF PATIENT CARE PER NURSING PROTOCOL Performed By: #### L 500.4050, L500.4100, L503.0106, L506.1001 #### [facility] [address] [place], [address] FINGERSTICK GLU 114 mg/dL High 74-106 [facility] Comment on above: Result Comment: MINDY GEMENT OF PATIENT CARE PER NURSING PROTOCOL Performed By: #### L 500.4050, L500.4100, L503.0106, L506.1001 #### [facility] [address] [place], [address] FINGERSTICK GLU 112 mg/dL High 74-106 [facility] Comment on above: Result Comment: MINDY GEMENT OF PATIENT CARE PER NURSING PROTOCOL Performed By: #### L 500.4050, L500.4100, L503.0106, L506.1001 #### [facility] [address] [place], [address] CBC W/Diff, Automatedon 05-22 Absolute Lymph 1.05 X10 3/uL Normal 0.83-4.51 [facility] Comment on above: Performed By: #### L 500.4050, L500.4100, L503.0106, L506.1001 #### [facility] [address] [place], [address] Absolute Neut 8.7 X10 3/uL High 2.0-7.7 [facility] Comment on above: Performed By: #### L 500.4050, L500.4100, L503.0106, L506.1001 #### [facility] [address] [place], [address] Basophils/100 WBC (Bld) 0.4 % Normal 0-1 [facility] Comment on above: Performed By: #### L 500.4050, L500.4100, L503.0106, L506.1001 #### [facility] [address] [place], [address] Eosinophils/100 WBC (Bld) 5.4 % High 0-5 [facility] Comment on above: Performed By: #### L 500.4050, L500.4100, L503.0106, L506.1001 #### [facility] [address] [place], [address] Erythrocyte distribution width (RBC) [Ratio] 14.4 % Normal 11.6-14.6 [facility] Comment on above: Performed By: #### L 500.4050, L500.4100, L503.0106, L506.1001 #### [facility] [address] [place], [address] Hematocrit (Bld) [Volume fraction] 28.5 % Low 40-54 [facility] Comment on above: Performed By: #### L 500.4050, L500.4100, L503.0106, L506.1001 #### [facility] [address] [place], [address] Hemoglobin (Bld) [Mass/Vol] 9.3 g/dL Low 13.0-16.5 [facility] Comment on above: Performed By: #### L 500.4050, L500.4100, L503.0106, L506.1001 #### [facility] [address] [place], [address] IG% 1.400 High 0.0-0.9 [facility] Comment on above: Result Comment: IG% - Immature Granulocytes (promyelocytes, myelocytes and metamyelocytes) > 1% indicates that a LEFT SHIFT is Present. Performed By: #### L 500.4050, L500.4100, L503.0106, L506.1001 #### [facility] [address] [place], [address] Lymphocytes/100 WBC (Bld) 8.9 % Low 19-41 [facility] Comment on above: Performed By: #### L 500.4050, L500.4100, L503.0106, L506.1001 #### [facility] [address] [place], [address] MCH (RBC) [Entitic mass] 33.1 pg High 27.0-32.0 [facility] Comment on above: Performed By: #### L 500.4050, L500.4100, L503.0106, L506.1001 #### [facility] [address] [place], [address] MCHC (RBC) [Mass/Vol] 32.6 g/dL Normal 32-36 [facility] Comment on above: Performed By: #### L 500.4050, L500.4100, L503.0106, L506.1001 #### [facility] [address] [place], [address] MCV (RBC) [Entitic vol] 101.4 fL High 80-94 [facility] Comment on above: Performed By: #### L 500.4050, L500.4100, L503.0106, L506.1001 #### [facility] [address] [place], [address] Monocytes/100 WBC (Bld) 10.3 % High 0-10 [facility] Comment on above: Performed By: #### L 500.4050, L500.4100, L503.0106, L506.1001 #### [facility] [address] [place], [address] Neutrophils/100 WBC (Bld) 73.6 % High 47-70 [facility] Comment on above: Performed By: #### L 500.4050, L500.4100, L503.0106, L506.1001 #### [facility] [address] [place], [address] Nucleated RBC (Bld) [#/Vol] 0 10*3/uL Normal 0-5 [facility] Comment on above: Performed By: #### L 500.4050, L500.4100, L503.0106, L506.1001 #### [facility] [address] [place], [address] Platelet mean volume (Bld) [Entitic vol] 8.8 fL Normal 6.2-12.0 [facility] Comment on above: Performed By: #### L 500.4050, L500.4100, L503.0106, L506.1001 #### [facility] [address] [place], [address] Platelets (Bld) [#/Vol] 302 10*3/uL Normal 150-450 [facility] Comment on above: Performed By: #### L 500.4050, L500.4100, L503.0106, L506.1001 #### [facility] [address] [place], [address] RBC (Bld) [#/Vol] 2.81 10*6/uL Low 4.6-6.2 [facility] Comment on above: Performed By: #### L 500.4050, L500.4100, L503.0106, L506.1001 #### [facility] [address] [place], [address] RDW SD 52.4 fl High 35.1-43.9 [facility] Comment on above: Performed By: #### L 500.4050, L500.4100, L503.0106, L506.1001 #### [facility] [address] [place], [address] WBC (Bld) [#/Vol] 11.8 10*3/uL High 4.4-11.0 [facility] Comment on above: Performed By: #### L 500.4050, L500.4100, L503.0106, L506.1001 #### [facility] [address] [place], [address] Bedside Glucoseon 06-03-2025 FINGERSTICK GLU 119 mg/dL High 74-106 [facility] Comment on above: Result Comment: MINDY GEMENT OF PATIENT CARE PER NURSING PROTOCOL Performed By: #### L 500.4050, L500.4100, L503.0106, L506.1001 #### [facility] [address] [place], [address] FINGERSTICK GLU 114 mg/dL High 74-106 [facility] Comment on above: Result Comment: MINDY GEMENT OF PATIENT CARE PER NURSING PROTOCOL Performed By: #### L 500.4050, L500.4100, L503.0106, L506.1001 #### [facility] [address] [place], [address] FINGERSTICK GLU 103 mg/dL Normal 74-106 [facility] Comment on above: Result Comment: MINDY GEMENT OF PATIENT CARE PER NURSING PROTOCOL Performed By: #### L 500.4050, L500.4100, L503.0106, L506.1001 #### [facility] [address] [place], [address] FINGERSTICK GLU 84 mg/dL Normal 74-106 [facility] Comment on above: Result Comment: MINDY GEMENT OF PATIENT CARE PER NURSING PROTOCOL Performed By: #### L 501.080 #### [facility] [address] [place], [address] Bedside Glucoseon 06-02-2025 FINGERSTICK GLU 118 mg/dL High 74-106 [facility] Comment on above: Result Comment: MINDY GEMENT OF PATIENT CARE PER NURSING PROTOCOL Performed By: #### L 500.4050, L500.4100, L503.0106, L506.1001 #### [facility] [address] [place], [address] FINGERSTICK GLU 104 mg/dL Normal 74-106 [facility] Comment on above: Result Comment: MINDY GEMENT OF PATIENT CARE PER NURSING PROTOCOL Performed By: #### L 500.4050, L500.4100, L503.0106, L506.1001 #### [facility] [address] [place], [address] Bedside Glucoseon 06-01-2025 FINGERSTICK GLU 115 mg/dL High 74-106 [facility] Comment on above: Result Comment: MINDY GEMENT OF PATIENT CARE PER NURSING PROTOCOL Performed By: #### L 501.080 #### [facility] [address] [place], [address] FINGERSTICK GLU 113 mg/dL High 74-106 [facility] Comment on above: Result Comment: MINDY GEMENT OF PATIENT CARE PER NURSING PROTOCOL Performed By: #### L 500.4050, L500.4100, L503.0106, L506.1001 #### [facility] [address] [place], [address] FINGERSTICK GLU 109 mg/dL High 74-106 [facility] Comment on above: Result Comment: MINDY GEMENT OF PATIENT CARE PER NURSING PROTOCOL Performed By: #### L 501.080 #### [facility] [address] [facility] [address] FINGERSTICK GLU 114 mg/dL [address] Comment on above: Result Comment: MINDY GEMENT OF PATIENT CARE PER NURSING PROTOCOL Performed By: #### L 500.4050, L500.4100, L503.0106, L506.1001 #### [facility] [address] [facility] [address] FINGERSTICK GLU 118 mg/dL [address] Comment on above: Result Comment: MINDY GEMENT OF PATIENT CARE PER NURSING PROTOCOL Performed By: #### L 500.4050, L500.4100, L503.0106, L506.1001 #### [facility] [address] [facility] [address] [facility] deOrdered By: Jesus Alberto Wiggins on 06-01-2025 Glucose [Mass/Vol] 109 mg/dL High [facility]106 [facility] Comment on above: MANAGEMENT OF PATIEN T CARE PER NURSING PROTOCOL Bedside Glucoseon 05-31-2025 FINGERSTICK GLU 107 mg/dL [address] Comment on above: Result Comment: MINDY GEMENT OF PATIENT CARE PER NURSING PROTOCOL Performed By: #### L 400.0001 #### [facility] [address] [facility] [address] FINGERSTICK GLU 122 mg/dL [address] Comment on above: Result Comment: MINDY GEMENT OF PATIENT CARE PER NURSING PROTOCOL Performed By: #### L 500.4050, L500.4100, L503.0106, L506.1001 #### [facility] [address] [facility] [address] FINGERSTICK GLU 119 mg/dL [address] Comment on above: Result Comment: MINDY GEMENT OF PATIENT CARE PER NURSING PROTOCOL Performed By: #### L 500.4050, L500.4100, L503.0106, L506.1001 #### [facility] [address] [place], [address] FINGERSTICK GLU 125 mg/dL High -106 [facility] Comment on above: Result Comment: MINDY GEMENT OF PATIENT CARE PER NURSING PROTOCOL Performed By: #### L 400.0001 #### [facility] [address] [place], [address] Bedside Glucoseon 05-30-2025 FINGERSTICK GLU 135 mg/dL High -106 [facility] Comment on above: Result Comment: MINDY GEMENT OF PATIENT CARE PER NURSING PROTOCOL Performed By: #### L 500.4050, L500.4100, L503.0106, L506.1001 #### [facility] [address] [facility] [address] FINGERSTICK GLU 136 mg/dL High 74-106 [facility] Comment on above: Result Comment: MINDY GEMENT OF PATIENT CARE PER NURSING PROTOCOL Performed By: #### L 500.4050, L500.4100, L503.0106, L506.1001 #### [facility] [address] [facility] [address] FINGERSTICK GLU 130 mg/dL High -[address] [place] [address] Comment on above: Result Comment: MINDY GEMENT OF PATIENT CARE PER NURSING PROTOCOL Performed By: #### L 500.4050, L500.4100, L503.0106, L506.1001 #### [facility] [address] [place], [address] FINGERSTICK GLU 128 mg/dL High -106 [facility] Comment on above: Result Comment: MINDY GEMENT OF PATIENT CARE PER NURSING PROTOCOL Performed By: #### L 500.4050, L500.4100, L503.0106, L506.1001 #### [facility] [address] [place] [id number] Bedside Glucoseon 05-29-2025 FINGERSTICK GLU 116 mg/dL High 74-106 [facility] Comment on above: Result Comment: MINDY GEMENT OF PATIENT CARE PER NURSING PROTOCOL Performed By: #### L 400.0001 #### [facility] [address] [place], [address] FINGERSTICK GLU 130 mg/dL High 74-106 [facility] Comment on above: Result Comment: MINDY GEMENT OF PATIENT CARE PER NURSING PROTOCOL Performed By: #### L 500.4050, L500.4100, L503.0106, L506.1001 #### [facility] [address] [place], [address] FINGERSTICK GLU 129 mg/dL High 74-106 [facility] Comment on above: Result Comment: MINDY GEMENT OF PATIENT CARE PER NURSING PROTOCOL Performed By: #### L 500.4050, L500.4100, L503.0106, L506.1001 #### [facility] [address] [place], [address] Absolute lymphocyte countOrd ered By: Jesus Alberto Wiggins on 05-28-2025 Lymphocytes Auto (Unsp spec) [#/Vol] 0.48 10*3/uL Low 0.83-4.51 [facility] Absolute neutrophil countOrd ered By: Jesus Alberto Wiggins on 05-28-2025 Neutrophils (Bld) [#/Vol] 15.6 10*3/uL High 2.0-7.7 [facility] Anion gap in Serum or Plasma Ordered By: Jesus Alberto Wiggins on 05-28-2025 Anion gap [Moles/Vol] 11 mmol/L 5-15 [facility] Automated blood erythrocyte countOrdered By: Jesus Alberto Wiggins on 05-28-2025 RBC (Bld) [#/Vol] 2.95 10*6/uL Low 4.6-6.2 [facility] Comment on above: Performed By: #### L 501.080 #### [facility] [address] [place], [address] Automated blood hematocrit ( percentage)Ordered By: Jesus Alberto Wiggins on 05-28-2025 Hematocrit (Bld) [Volume fraction] 29.0 % Low 40-54 [facility] Comment on above: Performed By: #### L 501.080 #### [facility] [address] [place], [address] Automated lymphocyte count a s percentage of total leukocytesOrdered By: Jesus Alberto Wiggins on 05-28-2025 Lymphocytes/100 WBC Auto (Unsp spec) 2.8 % Low 19-41 [facility] BUN/creatinine ratioOrdered By: Jesus Alberto Wiggins on 05-28-2025 Urea nitrogen/Creatinine [Mass ratio] 33.6 mg/mg High 10-20 [facility] Basic Metabolic Profile (BMP )on 05-28-2025 BUN/CRE 33.6 RATIO High 10-20 [facility] Comment on above: Performed By: #### L 501.080 #### [facility] [address] [place], [address] Calcium [Mass/Vol] 8.2 mg/dL Normal 7.6-11.0 [facility] Comment on above: Performed By: #### L 501.080 #### [facility] [address] [place], [address] Chloride [Moles/Vol] 101 mmol/L Normal 98-108 [facility] Comment on above: Performed By: #### L 501.080 #### [facility] [address] [place], [address] CO2 [Moles/Vol] 23.9 mmol/L Normal 21.0-32.0 [facility] Comment on above: Performed By: #### L 501.080 #### [facility] [address] [place], [address] Creatinine [Mass/Vol] 0.65 mg/dL Low 0.70-1.20 [facility] Comment on above: Performed By: #### L 501.080 #### [facility] [address] [place], [address] ECRCL 56.19 ml/min Normal 50-250 [facility] Comment on above: Performed By: #### L 501.080 #### [facility] [address] [place], [address] GAP 11 Normal 5-15 [facility] Comment on above: Performed By: #### L 501.080 #### [facility] [address] [place], [address] GFR/1.73 sq M.predicted among non-blacks MDRD (S/P/Bld) [Vol rate/Area] 90 mL/min/{1.73_m2} Normal >60 [facility] Comment on above: Result Comment: mL/m in/1.73m2 CKD-EPI Creatinine Equation (2020) Performed By: #### L 501.080 #### [facility] [address] [place], [address] Glucose [Mass/Vol] 146 mg/dL High 70-99 [facility] Comment on above: Performed By: #### L 501.080 #### [facility] [address] [place], [address] Potassium [Moles/Vol] 4.1 mmol/L Normal 3.3-5.1 [facility] Comment on above: Performed By: #### L 501.080 #### [facility] [address] [place], [address] Sodium [Moles/Vol] 135 mmol/L Normal 133-145 [facility] Comment on above: Performed By: #### L 501.080 #### [facility] [address] [place], [address] Urea nitrogen [Mass/Vol] 22 mg/dL High 4-19 [facility] Comment on above: Performed By: #### L 501.080 #### [facility] [address] [place], [address] Basophil percentageOrdered B y: Jesus Alberto Wiggins on 05-28-2025 Basophils/100 WBC (Bld) 0.1 % Normal 0-1 [facility] Comment on above: Performed By: #### L 501.080 #### [facility] [address] [place], [address] Bedside Glucoseon 05-28-2025 FINGERSTICK GLU 113 mg/dL High 74-106 [facility] Comment on above: Result Comment: MINDY GEMENT OF PATIENT CARE PER NURSING PROTOCOL Performed By: #### L 500.4050, L500.4100, L503.0106, L506.1001 #### [facility] [address] [place], [address] FINGERSTICK GLU 150 mg/dL High 74-106 [facility] Comment on above: Result Comment: MINDY GEMENT OF PATIENT CARE PER NURSING PROTOCOL Performed By: #### L 500.4050, L500.4100, L503.0106, L506.1001 #### [facility] [address] [place], [address] FINGERSTICK GLU 162 mg/dL High 74-106 [facility] Comment on above: Result Comment: MINDY GEMENT OF PATIENT CARE PER NURSING PROTOCOL Performed By: #### L 400.0001 #### [facility] [address] [place], [address] CBC W/Diff, Automatedon 08-0 Absolute Lymph 0.48 X10 3/uL Low 0.83-4.51 [facility] Comment on above: Performed By: #### L 501.080 #### [facility] [address] [place], [address] Absolute Neut 15.6 X10 3/uL High 2.0-7.7 [facility] Comment on above: Performed By: #### L 501.080 #### [facility] [address] [place], [address] IG% 1.000 High 0.0-0.9 [facility] Comment on above: Result Comment: IG% - Immature Granulocytes (promyelocytes, myelocytes and metamyelocytes) > 1% indicates that a LEFT SHIFT is Present. Performed By: #### L 501.080 #### [facility] [address] [place], [address] Lymphocytes/100 WBC (Bld) 2.8 % Low 19-41 [facility] Comment on above: Performed By: #### L 501.080 #### [facility] [address] [place], [address] Nucleated RBC (Bld) [#/Vol] 0 10*3/uL Normal 0-5 [facility] Comment on above: Performed By: #### L 501.080 #### [facility] [address] [place], [address] RDW SD 44.9 fl High 35.1-43.9 [facility] Comment on above: Performed By: #### L 501.080 #### [facility] [address] [place], [address] Carbon dioxide, total [Moles /volume] in Central venous bloodOrdered By: Jesus Alberto Wiggins on 05-28-2025 CO2 [Moles/Vol] 23.9 mmol/L 21.0-32.0 [facility] Chloride assayOrdered By: Kelechi Wiggins on 05-28-2025 Chloride [Moles/Vol] 101 mmol/L 98-108 [facility] Eosinophil percentageOrdered By: Jesus Alberto Wiggins on 05-28-2025 Eosinophils/100 WBC (Bld) 0.0 % Normal 0-5 [facility] Comment on above: Performed By: #### L 501.080 #### [facility] [address] [place], [place], [id number] Erythrocyte distribution wid th ratioOrdered By: Jesus Alberto Wiggins on 05-28-2025 Erythrocyte distribution width (RBC) [Ratio] 12.6 % Normal 11.6-14.6 [facility] Comment on above: Performed By: #### L 501.080 #### [facility] [address] [place], [place], [id number] (915) Erythrocyte distribution wid th standard deviationOrdered By: Jesus Alberto Wiggins on 05-28-2025 Erythrocyte distribution width (RBC) [Ratio] 44.9 fl High 35.1-43.9 [facility] Glomerular filtration rate ( GFR) estimation/1.73 sq m using serum, plasma, or whole bOrdered By: Jesus Alberto Wiggins on 05-28-2025 GFR/1.73 sq M.predicted among non-blacks MDRD (S/P/Bld) [Vol rate/Area] 90 mL/min/{1.73_m2} >60 [facility] Comment on above: mL/min/1.73m2 CKD-EP I Creatinine Equation (2020) Hemoglobin measurementOrdere d By: Jesus Alberto Wiggins on 05-28-2025 Hemoglobin (Bld) [Mass/Vol] 9.6 g/dL Low 13.0-16.5 [facility] Comment on above: Performed By: #### L 501.080 #### [facility] [address] [place], [place], [id number] Immature granulocytes/100 WB C Auto (Bld)Ordered By: Jesus Alberto Wiggins on 05-28-2025 Immature granulocytes/100 WBC (Bld) 1.000 % High 0.0-0.9 [facility] Comment on above: IG% - Immature Granu locytes (promyelocytes, myelocytes and metamyelocytes) > 1% indicates that a LEFT SHIFT is Present. MCV (mean corpuscular volume ) determinationOrdered By: Jesus Alberto Wiggins on 05-28-2025 MCV (RBC) [Entitic vol] 98.3 fL High 80-94 [facility] Comment on above: Performed By: #### L 501.080 #### [facility] [address] [place], [address] Mean corpuscular hemoglobin (MCH) determinationOrdered By: Jesus Alberto Wiggins on 05-28-2025 MCH (RBC) [Entitic mass] 32.5 pg High 27.0-32.0 [facility] Comment on above: Performed By: #### L 501.080 #### [facility] [address] [place], [address] Mean corpuscular hemoglobin concentration (MCHC) determinationOrdered By: Jesus Alberto Feliciano on 05-28-2025 MCHC (RBC) [Mass/Vol] 33.1 g/dL Normal 32-36 [facility] Comment on above: Performed By: #### L 501.080 #### [facility] [address] [place], [address] Mean platelet volume determi nationOrdered By: Jesus Alberto Feliciano on 05-28-2025 Platelet mean volume (Bld) [Entitic vol] 9.3 fL Normal 6.2-12.0 [facility] Comment on above: Performed By: #### L 501.080 #### [facility] [address] [place], [address] Monocyte percentageOrdered B y: Jesus Alberto Wiggins on 05-28-2025 Monocytes/100 WBC (Bld) 4.7 % Normal 0-10 [facility] Comment on above: Performed By: #### L 501.080 #### [facility] [address] [place], [address] Neutrophil percentageOrdered By: Jesus Alberto Wiggins on 05-28-2025 Neutrophils/100 WBC (Bld) 91.4 % High 47-70 [facility] Comment on above: Performed By: #### L 501.080 #### [facility] [address] [place], [address] Nucleated red blood cell per centageOrdered By: Jesus Alberto Wiggins on 05-28-2025 Nucleated RBC/100 WBC (Bld) [Ratio] 0 % 0-5 [facility] Platelet countOrdered By: Kelechi Wiggins on 05-28-2025 Platelets (Bld) [#/Vol] 550 10*3/uL High 150-450 [facility] Comment on above: Performed By: #### L 501.080 #### [facility] [address] [place], [place], [id number] Potassium measurement (mass/ volume)Ordered By: Jesus Alberto Wiggins on 05-28-2025 Potassium (Unsp spec) [Mass/Vol] 4.1 mmol/L 3.3-5.1 [facility] Serum creatinine measurement (mass/volume)Ordered By: Jesus Alberto Wiggins on 05-28-2025 Creatinine [Mass/Vol] 0.65 mg/dL Low 0.70-1.20 [facility] Serum glucose measurement (m ass/volume)Ordered By: Jesus Alberto Wiggins on 05-28-2025 Glucose [Mass/Vol] 146 mg/dL High 70-99 [facility] Serum or plasma calcium praveen urement (mass/volume)Ordered By: Jesus Alberto Wiggins on 05-28-2025 Calcium [Mass/Vol] 8.2 mg/dL 7.6-11.0 [facility] Serum or plasma urea nitroge n measurement (mass/volume)Ordered By: Jesus Alberto Wiggins on 05-28-2025 Urea nitrogen [Mass/Vol] 22 mg/dL High 4-19 [facility] Sodium levelOrdered By: Jesus Alberto Wiggins on 05-28-2025 Sodium [Moles/Vol] 135 mmol/L 133-145 [facility] White blood cell (WBC) count Ordered By: Jesus Alberto Wiggins on 05-28-2025 WBC (Bld) [#/Vol] 17.1 10*3/uL High 4.4-11.0 [facility] Comment on above: Performed By: #### L 501.080 #### [facility] [address] [place], [place], [id number] Bedside Glucoseon 05-27-2025 FINGERSTICK GLU 129 mg/dL High 74-106 [facility] Comment on above: Result Comment: MINDY GEMENT OF PATIENT CARE PER NURSING PROTOCOL Performed By: #### L 500.4050, L500.4100, L503.0106, L506.1001 #### [facility] [address] [place], [address] FINGERSTICK GLU 125 mg/dL High 74-106 [facility] Comment on above: Result Comment: MINDY GEMENT OF PATIENT CARE PER NURSING PROTOCOL Performed By: #### L 500.4050, L500.4100, L503.0106, L506.1001 #### [facility] [address] [place], [address] FINGERSTICK GLU 138 mg/dL High -106 [facility] Comment on above: Result Comment: MINDY GEMENT OF PATIENT CARE PER NURSING PROTOCOL Performed By: #### L 500.4050, L500.4100, L503.0106, L506.1001 #### [facility] [address] [place], [address] FINGERSTICK GLU 166 mg/dL High [facility]106 [facility] Comment on above: Result Comment: MINDY GEMENT OF PATIENT CARE PER NURSING PROTOCOL Performed By: #### L 500.4050, L500.4100, L503.0106, L506.1001 #### [facility] [address] [place], [address] Chest PA and Lateralon 05-27 Chest PA and Lateral [facility] [address] [address] Chest PA and Lateral MR#: [id number] Acct: [id number] Name: FAWN CAMERON Rep #: [id number] : 1935 M 89 From: Gracie Baptiste PCP: Dr. Devan Barrera MD Status: ADM IN Study: Chest PA and Lateral Date of Exam: 05/27/25 Exam# [id number] Ordering Dr: Jesus Alberto Wiggins MD PROCEDURE: [...] No interval osseous changes noted. Reading Location: [place] [address] CC: Dr. Devan Barrera MD; Dr. Jesus Alberto Wiggins MD [place] Worker: Signed Normal [facility] deOrdered By: Jesus Alberto Wiggins on 05-27-2025 Glucose [Mass/Vol] 125 mg/dL High 74-106 [facility] Comment on above: MANAGEMENT OF PATIEN T CARE PER NURSING PROTOCOL Glucose [Mass/Vol] 166 mg/dL High 74-106 [facility] Comment on above: MANAGEMENT OF PATIEN T CARE PER NURSING PROTOCOL Absolute lymphocyte countOrd ered By: Jesus Alberto Wiggins on 05-26-2025 Lymphocytes Auto (Unsp spec) [#/Vol] 0.61 10*3/uL Low 0.83-4.51 [facility] Absolute neutrophil countOrd ered By: Jesus Alberto Wiggins on 05-26-2025 Neutrophils (Bld) [#/Vol] 15.8 10*3/uL High 2.0-7.7 [facility] Anion gap in Serum or Plasma Ordered By: Jesus Alberto Wiggins on 05-26-2025 Anion gap [Moles/Vol] 9 mmol/L 5-15 [facility] Automated lymphocyte count a s percentage of total leukocytesOrdered By: Jesus Alberto Wiggins on 05-26-2025 Lymphocytes/100 WBC Auto (Unsp spec) 3.4 % Low 19-41 [facility] BUN/creatinine ratioOrdered By: Jesus Alberto Wiggins on 05-26-2025 Urea nitrogen/Creatinine [Mass ratio] 32.3 mg/mg High 10-20 [facility] Basic Metabolic Profile (BMP )on 05-26-2025 BUN/CRE 32.3 RATIO High 10-20 [facility] Comment on above: Performed By: #### L 500.4050, L500.4100, L503.0106, L506.1001 #### [facility] [address] [place], [address] Calcium [Mass/Vol] 8.1 mg/dL Normal 7.6-11.0 [facility] Comment on above: Performed By: #### L 500.4050, L500.4100, L503.0106, L506.1001 #### [facility] [address] [place], [address] Chloride [Moles/Vol] 97 mmol/L Low 98-108 [facility] Comment on above: Performed By: #### L 500.4050, L500.4100, L503.0106, L506.1001 #### [facility] [address] [place], [address] CO2 [Moles/Vol] 24.2 mmol/L Normal 21.0-32.0 [facility] Comment on above: Performed By: #### L 500.4050, L500.4100, L503.0106, L506.1001 #### [facility] [address] [place], [address] Creatinine [Mass/Vol] 0.61 mg/dL Low 0.70-1.20 [facility] Comment on above: Performed By: #### L 500.4050, L500.4100, L503.0106, L506.1001 #### [facility] [address] [place], [address] ECRCL 56.19 ml/min Normal 50-250 [facility] Comment on above: Performed By: #### L 500.4050, L500.4100, L503.0106, L506.1001 #### [facility] [address] [place], [address] GAP 9 Normal 5-15 [facility] Comment on above: Performed By: #### L 500.4050, L500.4100, L503.0106, L506.1001 #### [facility] [address] [place], [address] GFR/1.73 sq M.predicted among non-blacks MDRD (S/P/Bld) [Vol rate/Area] 92 mL/min/{1.73_m2} Normal >60 [facility] Comment on above: Result Comment: mL/m in/1.73m2 CKD-EPI Creatinine Equation (2020) Performed By: #### L 500.4050, L500.4100, L503.0106, L506.1001 #### [facility] [address] [place], [address] Glucose [Mass/Vol] 122 mg/dL High 70-99 [facility] Comment on above: Performed By: #### L 500.4050, L500.4100, L503.0106, L506.1001 #### [facility] [address] [place], [address] Potassium [Moles/Vol] 3.6 mmol/L Normal 3.3-5.1 [facility] Comment on above: Performed By: #### L 500.4050, L500.4100, L503.0106, L506.1001 #### [facility] [address] [place], [address] Sodium [Moles/Vol] 130 mmol/L Low 133-145 [facility] Comment on above: Performed By: #### L 500.4050, L500.4100, L503.0106, L506.1001 #### [facility] [address] [place], [address] Urea nitrogen [Mass/Vol] 20 mg/dL High 4-19 [facility] Comment on above: Performed By: #### L 500.4050, L500.4100, L503.0106, L506.1001 #### [facility] [address] [place], [address] Basophil percentageOrdered B y: Jesus Alberto Wiggins on 05-26-2025 Basophils/100 WBC (Bld) 0.2 % 0-1 [facility] Bedside Glucoseon 05-26-2025 FINGERSTICK GLU 139 mg/dL High 74-106 [facility] Comment on above: Result Comment: MINDY GEMENT OF PATIENT CARE PER NURSING PROTOCOL Performed By: #### L 500.4050, L500.4100, L503.0106, L506.1001 #### [facility] [address] [place], [address] FINGERSTICK GLU 129 mg/dL High 74-106 [facility] Comment on above: Result Comment: MINDY GEMENT OF PATIENT CARE PER NURSING PROTOCOL Performed By: #### L 500.4050, L500.4100, L503.0106, L506.1001 #### [facility] [address] [place], [address] FINGERSTICK GLU 128 mg/dL High 74-106 [facility] Comment on above: Result Comment: MINDY GEMENT OF PATIENT CARE PER NURSING PROTOCOL Performed By: #### L 500.4050, L500.4100, L503.0106, L506.1001 #### [facility] [address] [place], [address] FINGERSTICK GLU 131 mg/dL High 74-106 [facility] Comment on above: Result Comment: MINDY GEMENT OF PATIENT CARE PER NURSING PROTOCOL Performed By: #### L 400.0001 #### [facility] [address] [place], [address] CBC W/Diff, Automatedon Absolute Lymph 0.61 X10 3/uL Low 0.83-4.51 [facility] Comment on above: Performed By: #### L 500.4050, L500.4100, L503.0106, L506.1001 #### [facility] [address] [place], [address] Absolute Neut 15.8 X10 3/uL High 2.0-7.7 [facility] Comment on above: Performed By: #### L 500.4050, L500.4100, L503.0106, L506.1001 #### [facility] [address] [place], [address] Basophils/100 WBC (Bld) 0.2 % Normal 0-1 [facility] Comment on above: Performed By: #### L 500.4050, L500.4100, L503.0106, L506.1001 #### [facility] [address] [place], [address] Eosinophils/100 WBC (Bld) 0.6 % Normal 0-5 [facility] Comment on above: Performed By: #### L 500.4050, L500.4100, L503.0106, L506.1001 #### [facility] [address] [place], [address] Erythrocyte distribution width (RBC) [Ratio] 12.5 % Normal 11.6-14.6 [facility] Comment on above: Performed By: #### L 500.4050, L500.4100, L503.0106, L506.1001 #### [facility] [address] [place], [address] Hematocrit (Bld) [Volume fraction] 29.1 % Low 40-54 [facility] Comment on above: Performed By: #### L 500.4050, L500.4100, L503.0106, L506.1001 #### [facility] [address] [place], [address] Hemoglobin (Bld) [Mass/Vol] 9.7 g/dL Low 13.0-16.5 [facility] Comment on above: Performed By: #### L 500.4050, L500.4100, L503.0106, L506.1001 #### [facility] [address] [place], [address] IG% 1.000 High 0.0-0.9 [facility] Comment on above: Result Comment: IG% - Immature Granulocytes (promyelocytes, myelocytes and metamyelocytes) > 1% indicates that a LEFT SHIFT is Present. Performed By: #### L 500.4050, L500.4100, L503.0106, L506.1001 #### [facility] [address] [place], [address] Lymphocytes/100 WBC (Bld) 3.4 % Low 19-41 [facility] Comment on above: Performed By: #### L 500.4050, L500.4100, L503.0106, L506.1001 #### [facility] [address] [place], [address] MCH (RBC) [Entitic mass] 32.7 pg High 27.0-32.0 [facility] Comment on above: Performed By: #### L 500.4050, L500.4100, L503.0106, L506.1001 #### [facility] [address] [place], [address] MCHC (RBC) [Mass/Vol] 33.3 g/dL Normal 32-36 [facility] Comment on above: Performed By: #### L 500.4050, L500.4100, L503.0106, L506.1001 #### [facility] [address] [place], [address] MCV (RBC) [Entitic vol] 98.0 fL High 80-94 [facility] Comment on above: Performed By: #### L 500.4050, L500.4100, L503.0106, L506.1001 #### [facility] [address] [place], [address] Monocytes/100 WBC (Bld) 5.6 % Normal 0-10 [facility] Comment on above: Performed By: #### L 500.4050, L500.4100, L503.0106, L506.1001 #### [facility] [address] [place], [address] Neutrophils/100 WBC (Bld) 89.2 % High 47-70 [facility] Comment on above: Performed By: #### L 500.4050, L500.4100, L503.0106, L506.1001 #### [facility] [address] [place], [address] Nucleated RBC (Bld) [#/Vol] 0 10*3/uL Normal 0-5 [facility] Comment on above: Performed By: #### L 500.4050, L500.4100, L503.0106, L506.1001 #### [facility] [address] [place], [address] Platelet mean volume (Bld) [Entitic vol] 9.2 fL Normal 6.2-12.0 [facility] Comment on above: Performed By: #### L 500.4050, L500.4100, L503.0106, L506.1001 #### [facility] [address] [place], [address] Platelets (Bld) [#/Vol] 489 10*3/uL High 150-450 [facility] Comment on above: Performed By: #### L 500.4050, L500.4100, L503.0106, L506.1001 #### [facility] [address] [place], [address] RBC (Bld) [#/Vol] 2.97 10*6/uL Low 4.6-6.2 [facility] Comment on above: Performed By: #### L 500.4050, L500.4100, L503.0106, L506.1001 #### [facility] [address] [place], [address] RDW SD 44.6 fl High 35.1-43.9 [facility] Comment on above: Performed By: #### L 500.4050, L500.4100, L503.0106, L506.1001 #### [facility] [address] [place], [address] WBC (Bld) [#/Vol] 17.7 10*3/uL High 4.4-11.0 [facility] Comment on above: Performed By: #### L 500.4050, L500.4100, L503.0106, L506.1001 #### [facility] [address] [place], [address] COVID 19 AG RAPID (ANNA Bland)on 05-26-2025 [...] RAPID METHOD BinaxNow COVID19 Ag Card Normal [facility] Comment on above: Performed By: #### L 500.4050, L500.4100, L503.0106, L506.1001 #### [facility] [address] [place], [address] COVID-19 virus antigen assay Ordered By: Jesus Alberto Wiggins on 05-26-2025 SARS-CoV-2 (COVID-19) Ag IA.rapid Ql (Resp) [facility] CTA Chest W/WO Contraston CTA Chest W/WO Contrast [facility] Imaging Services [address] [place], [place] [address] CTA Chest W/WO Contrast MR#: [id number] Acct: [id number] Name: FAWN CAMERON Rep #: [id number] : 1935 M 89 From: Gerardo Fletcher MD PCP: Dr. Devan Barrera MD Status: [facility] CLI Study: CTA Chest W/WO Contrast Date of Exam: 05/26/25 Exam# [id number] Ordering Dr: Jesus Alberto Wiggins MD PROCEDURE: [...] 4. Other findings as noted. Reading Location: [facility] CC: Dr. Devan Barrera MD; Dr. Jesus Alberto Wiggins MD [place]arrow Worker: Signed Normal [facility] Carbon dioxide, total [Moles /volume] in Central venous bloodOrdered By: Jesus Alberto Wiggins on 05-26-2025 CO2 [Moles/Vol] 24.2 mmol/L 21.0-32.0 [facility] Chest PA and Lateralon 05-26 Chest PA [address] L[address] [facility] Imaging Services [address] [place], [place] [address] Chest PA and Lateral MR#: [id number] Acct: [id number] Name: FAWN CAMERON Rep #: [id number] : 1935 M 89 From: Edil thompson MD PCP: Dr. Devan Barrera MD Status: ADM IN Study: Chest PA and Lateral Date of Exam: 05/26/25 Exam# [id number] Ordering Dr: Jesus Alberto Wiggins MD PROCEDURE: [...] the posterior costophrenic angles bilaterally. Reading Location: [id number] CC: Dr. Devan Barrera MD; Dr. Jesus Alberto Wiggins MD Barrow Worker: Signed Normal [facility] Chloride assayOrdered By: Kelechi Wiggins on 05-26-2025 Chloride [Moles/Vol] 97 mmol/L Low 98-108 [facility] D-Dimer Quantitative (DVT/PE )on 05-26-2025 D-DIMER QUANT 5.68 FEU/ug/m Invalid Interpretation Code 0.27-0.49 [facility] Comment on above: Order Comment: CRITI RANDY VALUE CALLED TO ERMELINDA MENENDEZ05/26/25 1046 Annia Schmidt.RESULTS READ BACK BY SAME. Result Comment: D-Di lala ELEVATED (>0.49): Additional studies and clinical assessments are indicated to conclude diagnosis of: Deep Vein Thrombosis (DVT) or Pulmonary Embolism (PE) Performed By: #### L 500.4050, L500.4100, L503.0106, L506.1001 #### [facility] [address] [place], [place], [address] EGD Reporton 05-26-[address] [facility] Medical Records Department [address] [place] [address] EGD Report MR#: [id number] Acct: [id number] Name: FAWN CAMERON Rep #: [id number] : 1935 89 From: Stan Ferrara DO PCP: Dr. Devan Barrera MD Status:[facility] Patient Name: Fawn Cameron Procedure Date: 05/26/2025 [...] present medications. Procedure Code(s): --- Professional --- 75830, Esophagogastroduodenos copy, flexibl (more content not included)... Normal [facility] Eosinophil percentageOrdered By: Jesus Alberto Wiggins on 05-26-2025 Eosinophils/100 WBC (Bld) 0.6 % 0-5 [facility] Erythrocyte distribution wid th ratioOrdered By: [facility] on 05-26-2025 Erythrocyte distribution width (RBC) [Ratio] 12.5 % 11.6-14.6 [facility] Erythrocyte distribution wid th standard deviationOrdered By: [facility] on 05-26-2025 Erythrocyte distribution width (RBC) [Ratio] 44.6 fl High 35.1-43.9 [facility] Glomerular filtration rate ( GFR) estimation/1.73 sq m using serum, plasma, or whole bOrdered By: [facility] on 05-26-2025 GFR/1.73 sq M.predicted among non-blacks MDRD (S/P/Bld) [Vol rate/Area] 92 mL/min/{1.73_m2} >60 [facility] Comment on above: mL/min/1.73m2 CKD-EP I Creatinine Equation (2020) Hematocrit Auto (Bld) [Volum e fraction]Ordered By: [facility] 05-26-2025 Hematocrit (Bld) [Volume fraction] 29.1 % Low 40-54 [facility] Hemoglobin measurementOrdere d By: [facility] 05-26-2025 Hemoglobin (Bld) [Mass/Vol] 9.7 g/dL Low 13.0-16.5 [facility] Immature granulocytes/100 WB C Auto (Bld)Ordered By: [facility] 05-26-2025 Immature granulocytes/100 WBC (Bld) 1.000 % High 0.0-0.9 [facility] Comment on above: IG% - Immature Granu locytes (promyelocytes, myelocytes and metamyelocytes) > 1% indicates that a LEFT SHIFT is Present. MCV (mean corpuscular volume ) determinationOrdered By: [facility] on 05-26-2025 MCV (RBC) [Entitic vol] 98.0 fL High 80-94 [facility] MR/OP.PROVAToyesi 05-26-2025 [facility] Medical Records Department [address] [place] [address] Provation Physician Letter MR#: [id number] Acct: [id number] Name: FAWN CAMERON Rep #: [id number] : 1935 89 From: Stan Ferrara DO PCP: Dr. Devan Barrera MD Status:[facility] 05/26/2025 Devan Barrera Re : Upper GI endoscopy procedure for Fawn Cameron [place] This procedure was performed on Monday, May [...] Barrera MD; Stan Ferrara DO Date Dictated: 05/26/25 0708 Date Transcribed: Barrow Worker: RF Signed [facility] MR/POSTOP.[facility] 05-26-2025 MR/POSTOP.[facility] Medical Records Department [address] [place] [address] Anesthesia Postop Eval I 05/26/2514 MR#: [id number] Acct: [id number] Name: FAWN CAMERON Rep #: [id number] : 1935 89 From: Karri Howell CRNA PCP: Dr. Devan Barrera MD Status:[facility] [place] Race: C Location: [place] [address] Anesthesia: Postop Eval I Current Vital Signs Temperature: 98 F Pulse Rate: 85 Blood Pressure: 92/72 Respiratory Rate: 18 Pulse Ox: 96 Assessment Airway patent: Yes Spontaneous unlabored respirations: Yes nausea: No Vomiting: No Anesthesia Complication: No Fluid Hydration Crystalloid volume administer (ml): 500 Total IV fluid infused: 500 Progress Note Anesthesia document: Postop Eval 1 completed: Yes 05/26/25814 Date [place] PUBLIC WEIGHER Cosigner Signature: Date CC: Signed Normal [facility] MR/KOHHTIJP8ob 05-26-2025 [facility] Medical Records Department [address] [place] [address] Anesthesia Postop Eval II 05/26/25 1226 MR#: [id number] Acct: [id number] Name: FAWN CAMERON Rep #: [id number] : 1935 89 From: Benigno Bateman MD PCP: Dr. Devan Barrera MD Status:[facility] Y Race: C Location: [place] [address] Anesthesia Postop Eval I Sum Postop Eval Completion status Anesthesia document: Postop Eval 1 completed: Yes Anesthesia Postop Eval I Summary Anesthesia Postop Eval I Summary: Anesthesia Postop Eval I: Assessment Summary Airway patent Yes 05/26/25 08:15 PUBLIC WEIGHER.TNES Spontaneous unlabored Yes 05/26/25 08:15 PUBLIC WEIGHER.TNES respirations Mental status nausea No 05/26/25 08:15 PUBLIC WEIGHER.TNES Vomiting No 05/26/25 08:15 PUBLIC WEIGHER.TNES Anesthesia Postop Eval I: Fluid Summary Crystalloid volume administer 500 05/26/25 08:15 PUBLIC WEIGHER.TNES (ml) Colloids volume administered ( ml) Blood Product volume administered (ml) Total IV fluid infused 500 05/26/25 08:15 PUBLIC WEIGHER.TNES Anesthesia Postop Eval I: Summary Notes Anesthesia Complication No 05/26/25 08:15 PUBLIC WEIGHER.TNES Anesthesia Complication Comment: Post-operative progress note Anesthesia: [...] MD Cosigner Signature: Date CC: Signed Normal [facility] Mean corpuscular hemoglobin (MCH) determinationOrdered By: Jesus Alberto Wiggins on 05-26-2025 MCH (RBC) [Entitic mass] 32.7 pg High 27.0-32.0 [facility] Mean corpuscular hemoglobin concentration (MCHC) determinationOrdered By: Jesus Alberto Wiggins 05-26-2025 MCHC (RBC) [Mass/Vol] 33.3 g/dL 32-36 [facility] Mean platelet volume determi nationOrdered By: Jesus Alberto Wiggins 05-26-2025 Platelet mean volume (Bld) [Entitic vol] 9.2 fL 6.2-12.0 [facility] Monocyte percentageOrdered B y: Jesus Alberto Wiggins on 05-26-2025 Monocytes/100 WBC (Bld) 5.6 % 0-10 [facility] Natriuretic peptide.B prohor magnolia N-Terminal [Mass/volume] in Serum or PlasmaOrdered By: Jesus Alberto Wiggins 05-26-2025 Natriuretic peptide.B prohormone N-Terminal [Mass/Vol] 259 pg/mL <1800 [facility] Comment on above: Heart Failure Unlike ly: < 300 pg/mLHeart Failure Likely< 50 Years: > 450 pg/mL50-75 Years: > 900 pg/mL>75 Years: > 1800 pg/mL Neutrophil percentageOrdered By: Jesus Alberto Wiggins on 05-26-2025 Neutrophils/100 WBC (Bld) 89.2 % High 47-70 [facility] Nucleated red blood cell per centageOrdered By: Jesus Alberto Wiggins on 05-26-2025 Nucleated RBC/100 WBC (Bld) [Ratio] 0 % 0-5 [facility] Platelet countOrdered By: Kelechi Wiggins on 05-26-2025 Platelets (Bld) [#/Vol] 489 10*3/uL High 150-450 [facility] Potassium measurement (mass/ volume)Ordered By: Jesus Alberto Wiggins on 05-26-2025 Potassium (Unsp spec) [Mass/Vol] 3.6 mmol/L 3.3-5.1 [facility] Pro- Brain NATRIURETIC PEPTI Db 05-26-2025 Natriuretic peptide B (Bld) [Mass/Vol] 259 pg/mL Normal <=1800 [facility] Comment on above: Result Comment: Hear t Failure Unlikely: < 300 pg/mL Heart Failure Likely < 50 Years: > 450 pg/mL 50-75 Years: > 900 pg/mL >75 Years: > 1800 pg/mL Performed By: #### L 500.4050, L500.4100, L503.0106, L506.1001 #### [facility] [address] [facility] [place], [address] RBC Auto (Bld) [#/Vol]Ordere d By: Jesus Alberto Wiggins on 05-26-2025 RBC (Bld) [#/Vol] 2.97 10*6/uL Low 4.6-6.2 [facility] RESPIRATORY PANEL MOLECULARo n 05-26-2025 RP PANEL ADENOVIRUS Not Detected INFLUENZA A Not Detected INFLUENZA A (SUBTYPE H1) Not Detected INFLUENZA A (SUBTYPE H3) Not Detected INFLUENZA B Not Detected HUMAN METAPHNEUMO Not Detected PARAINFLUENZA 1 Not Detected PARAINFLUENZA 2 Not Detected PARAINFLUENZA 3 Not Detected PARAINFLUENZA 4 Not Detected RHINOVIRUS Not Detected RSV A Not Detected RSV B Not Detected Normal [facility] Comment on above: Performed By: #### L 500.4050, L500.4100, L503.0106, L506.1001 #### [facility] [address] [place], [address] Respiratory pathogens detect ion panel by molecular detection methodOrdered By: Jesus Alberto Wiggins on 05-26-2025 Respiratory pathogens DNA and RNA panel DONY+probe (Resp) [facility] Serum creatinine measurement (mass/volume)Ordered By: Jesus Alberto Wiggins on 05-26-2025 Creatinine [Mass/Vol] 0.61 mg/dL Low 0.70-1.20 [facility] Serum glucose measurement (m ass/volume)Ordered By: Jesus Alberto Wiggins on 05-26-2025 Glucose [Mass/Vol] 122 mg/dL High 70-99 [facility] Serum or plasma calcium praveen urement (mass/volume)Ordered By: Jesus Alberto Feliciano on 05-26-2025 Calcium [Mass/Vol] 8.1 mg/dL 7.6-11.0 [facility] Serum or plasma urea nitroge n measurement (mass/volume)Ordered By: Jesus Alberto Wiggins on 05-26-2025 Urea nitrogen [Mass/Vol] 20 mg/dL High 4-19 [facility] Sodium levelOrdered By: Jesus Alberto Feliciano on 05-26-2025 Sodium [Moles/Vol] 130 mmol/L Low 133-145 [facility] White blood cell (WBC) count Ordered By: Jesus Alberto Feliciano on 05-26-2025 WBC (Bld) [#/Vol] 17.7 10*3/uL High 4.4-11.0 [facility] Bedside Glucoseon 05-25-2025 FINGERSTICK GLU 132 mg/dL High 74-106 [facility] Comment on above: Result Comment: MINDY BLUE OF PATIENT CARE PER NURSING PROTOCOL Performed By: #### L 500.4050, L500.4100, L503.0106, L506.1001 #### [facility] [address] [place], [address] FINGERSTICK GLU 129 mg/dL High 74-106 [facility] Comment on above: Result Comment: MINDY GEMENT OF PATIENT CARE PER NURSING PROTOCOL Performed By: #### L 500.4050, L500.4100, L503.0106, L506.1001 #### [facility] [address] [place], [address] FINGERSTICK GLU 121 mg/dL High 74-106 [facility] Comment on above: Result Comment: MINDY GEMENT OF PATIENT CARE PER NURSING PROTOCOL Performed By: #### L 500.4050, L500.4100, L503.0106, L506.1001 #### [facility] [address] [place], [address] FINGERSTICK GLU 120 mg/dL High 74-106 [facility] Comment on above: Result Comment: MINDY GEMENT OF PATIENT CARE PER NURSING PROTOCOL Performed By: #### L 501.080 #### [facility] [address] [place], [address] Abdomen Single Viewon [address] [facility] Imaging Services [address] [place] [address] Abdomen Single View MR#: [id number] Acct: [id number] Name: FAWN CAMERON Rep #: [id number] : 1935 M 89 From: Henry Wesley DO PCP: Dr. Devan Barrera MD Status: ADM IN Study: Abdomen Single View Date of Exam: 05/24/25 Exam# [id number] Ordering Dr: Jesus Alberto Wiggins MD PROCEDURE: [...] NG tube in satisfactory position. Reading Location: [facility]- CC: Dr. Devan Barrera MD; Dr. Jesus Alberto Wiggins MD Barrow Worker: Signed Normal [facility] Bedside Glucoseon 05-24-2025 FINGERSTICK GLU 116 mg/dL High 74-106 [facility] Comment on above: Result Comment: MINDY GEMENT OF PATIENT CARE PER NURSING PROTOCOL Performed By: #### L 500.4050, L500.4100, L503.0106, L506.1001 #### [facility] [address] [facility] [address] FINGERSTICK GLU 117 mg/dL High -106 [facility] Comment on above: Result Comment: MINDY GEMENT OF PATIENT CARE PER NURSING PROTOCOL Performed By: #### L 400.0001 #### [facility] [address] [place], [address] FINGERSTICK GLU 122 mg/dL High -106 [facility] Comment on above: Result Comment: MINDY GEMENT OF PATIENT CARE PER NURSING PROTOCOL Performed By: #### L 400.0001 #### [facility] [address] [facility] [address] Bilirubin, totalOrdered By: Jesus Alberto Wiggins on 05-24-2025 Bilirubin [Mass/Vol] 0.37 mg/dL 0.00-1.30 [facility] Calculated very low density lipoprotein (VLDL) cholesterol measurementOrdered By: Jesus Alberto Wiggins on 05-24-2025 Calculated very low density lipoprotein (VLDL) cholesterol measurement 13 mg/dL 5-40 [facility] Comprehensive Metabolic Prof ilon 05-24-2025 Albumin [Mass/Vol] 3.0 g/dL Low 3.4-4.8 [facility] Comment on above: Performed By: #### L 500.4050, L500.4100, L503.0106, L506.1001 #### [facility] [address] [place], [address] Albumin/Globulin [Mass ratio] 1.3 {ratio} Normal 0.9-2.4 [facility] Comment on above: Performed By: #### L 500.4050, L500.4100, L503.0106, L506.1001 #### [facility] [address] [place], [address] ALK PHOS 147 U/L High 40-129 [facility] Comment on above: Performed By: #### L 500.4050, L500.4100, L503.0106, L506.1001 #### [facility] [address] [place], [address] ALT [Catalytic activity/Vol] 29 U/L Normal <=46 [facility] Comment on above: Performed By: #### L 500.4050, L500.4100, L503.0106, L506.1001 #### [facility] [address] [place], [address] AST [Catalytic activity/Vol] 23 U/L Normal <=37 [facility] Comment on above: Performed By: #### L 500.4050, L500.4100, L503.0106, L506.1001 #### [facility] [address] [place], [address] Bilirubin [Mass/Vol] 0.37 mg/dL Normal 0.00-1.30 [facility] Comment on above: Performed By: #### L 500.4050, L500.4100, L503.0106, L506.1001 #### [facility] [address] [place], [address] BUN/CRE 50.2 RATIO High 10-20 [facility] Comment on above: Performed By: #### L 500.4050, L500.4100, L503.0106, L506.1001 #### [facility] [address] [place], [address] Calcium [Mass/Vol] 8.3 mg/dL Normal 7.6-11.0 [facility] Comment on above: Performed By: #### L 500.4050, L500.4100, L503.0106, L506.1001 #### [facility] [address] [place], [address] Chloride [Moles/Vol] 96 mmol/L Low 98-108 [facility] Comment on above: Performed By: #### L 500.4050, L500.4100, L503.0106, L506.1001 #### [facility] [address] [place], [address] CO2 [Moles/Vol] 23.0 mmol/L Normal 21.0-32.0 [facility] Comment on above: Performed By: #### L 500.4050, L500.4100, L503.0106, L506.1001 #### [facility] [address] [place], [address] Creatinine [Mass/Vol] 0.78 mg/dL Normal 0.70-1.20 [facility] Comment on above: Performed By: #### L 500.4050, L500.4100, L503.0106, L506.1001 #### [facility] [address] [place], [address] ECRCL 56.19 ml/min Normal 50-250 [facility] Comment on above: Performed By: #### L 500.4050, L500.4100, L503.0106, L506.1001 #### [facility] [address] [place], [address] GAP 13 Normal 5-15 [facility] Comment on above: Performed By: #### L 500.4050, L500.4100, L503.0106, L506.1001 #### [facility] [address] [place], [address] GFR/1.73 sq M.predicted among non-blacks MDRD (S/P/Bld) [Vol rate/Area] 85 mL/min/{1.73_m2} Normal >60 [facility] Comment on above: Result Comment: mL/m in/1.73m2 CKD-EPI Creatinine Equation (2020) Performed By: #### L 500.4050, L500.4100, L503.0106, L506.1001 #### [facility] [address] [place], [address] Globulin (S) [Mass/Vol] 2.3 g/dL Normal 2.2-4.2 [facility] Comment on above: Performed By: #### L 500.4050, L500.4100, L503.0106, L506.1001 #### [facility] [address] [place], [address] Glucose [Mass/Vol] 136 mg/dL High 70-99 [facility] Comment on above: Performed By: #### L 500.4050, L500.4100, L503.0106, L506.1001 #### [facility] [address] [place], [address] Potassium [Moles/Vol] 3.8 mmol/L Normal 3.3-5.1 [facility] Comment on above: Performed By: #### L 500.4050, L500.4100, L503.0106, L506.1001 #### [facility] [address] [place], [address] Sodium [Moles/Vol] 132 mmol/L Low 133-145 [facility] Comment on above: Performed By: #### L 500.4050, L500.4100, L503.0106, L506.1001 #### [facility] [address] [place], [address] T PROT 5.3 g/dL Low 5.9-8.4 [facility] Comment on above: Performed By: #### L 500.4050, L500.4100, L503.0106, L506.1001 #### [facility] [address] [place], [address] Urea nitrogen [Mass/Vol] 39 mg/dL High 4-19 [facility] Comment on above: Performed By: #### L 500.4050, L500.4100, L503.0106, L506.1001 #### [facility] [address] [place], [address] LDL calc ser/plasOrdered By: Jesus Alberto Wiggins on 05-24-2025 Cholesterol in LDL [Mass/Vol] 62 mg/dL [facility] Comment on above: Vixqgigvvy=388-469 m g/dL & Higher Grud=835 mg/dL or greaterFriedwald Equation for LDL-C Laboratory - Chemistry and C hemistry - challengeOrdered By: Jesus Alberto Wiggins on 05-24-2025 AST [Catalytic activity/Vol] 23 U/L <38 [facility] Lipid Profileon 05-24-2025 CHOL:HDL 3.13 Normal [facility] Comment on above: Performed By: #### L 500.4050, L500.4100, L503.0106, L506.1001 #### [facility] [address] [place], [address] Cholesterol [Mass/Vol] 110 mg/dL Normal <=200 [facility] Comment on above: Result Comment: Chol esterol level, Desirable <200 mg/dL Borderline high cholesterol 200-239 mg/dL High cholesterol >=240 mg/dL Recommendations of the NCEP Adult Treatment Panel for the following risk-cutoff thresholds for the [place] population. Performed By: #### L 500.4050, L500.4100, L503.0106, L506.1001 #### [facility] [address] [place], [address] Cholesterol in HDL [Mass/Vol] 35 mg/dL Low [facility] Comment on above: Result Comment: Tawanna onal Cholesterol Education Program (NCEP) guidelines: <40 mg/dL: Low HDL-cholesterol (major risk factor for CHD) >= 60 mg/dL: High HDL-cholesterol (negative risk factor for CHD) HDL-cholesterol is affected by a number of factors, e.g. smoking, exercise, hormones, sex and age. Performed By: #### L 500.4050, L500.4100, L503.0106, L506.1001 #### [facility] [address] [place], [address] Cholesterol in LDL [Mass/Vol] 62 mg/dL Normal [facility] Comment on above: Result Comment: Bord sjtgia=931-871 mg/dL Higher Enua=093 mg/dL or greater Friedwald Equation for LDL-C Performed By: #### L 500.4050, L500.4100, L503.0106, L506.1001 #### [facility] [address] [place], [address] Cholesterol in VLDL [Mass/Vol] 13 mg/dL Normal 5-40 [facility] Comment on above: Performed By: #### L 500.4050, L500.4100, L503.0106, L506.1001 #### [facility] [address] [place], [address] Triglyceride [Mass/Vol] 65 mg/dL Normal [facility] Comment on above: Result Comment: The drugs N-Acetylcysteine and Metamizole may falsely depress this assay. Normal range: <150 mg/dL Borderline High: 150-199 mg/dL High: 200-499 mg/dL Very High: >500 mg/dL Performed By: #### L 500.4050, L500.4100, L503.0106, L506.1001 #### [facility] [address] [place], [address] Screening total cholesterol/ high density lipoprotein (HDL) cholesterol ratioOrdered By: Jesus Alberto Wiggins on 05-24-2025 Cholesterol.total/Chol esterol in HDL [Mass ratio] 3.13 {ratio} [facility] Serum globulin measurementOr dered By: Jesus Alberto Wiggins 05-24-2025 Globulin (S) [Mass/Vol] 2.3 g/dL 2.2-4.2 [facility] Serum or plasma alanine noonan otransferase (ALT) measurementOrdered By: Jesus Alberto Wiggins on 05-24-2025 ALT [Catalytic activity/Vol] 29 U/L <47 [facility] Serum or plasma albumin praveen urement (mass/volume)Ordered By: Jesus Alberto Wiggins 05-24-2025 Albumin [Mass/Vol] 3.0 g/dL Low 3.4-4.8 [facility] Serum or plasma albumin/glob ulin mass ratioOrdered By: Jesus Alberto Wiggins 05-24-2025 Albumin/Globulin [Mass ratio] 1.3 {ratio} 0.9-2.4 [facility] Serum or plasma alkaline dean sphatase measurementOrdered By: Jesus Alberto Wiggins 05-24-2025 ALP [Catalytic activity/Vol] 147 U/L High 40-129 [facility] Serum or plasma cholesterol in HDL measurement (mass/volume)Ordered By: Jesus Alberto Wiggins 05-24-2025 Cholesterol in HDL [Mass/Vol] 35 mg/dL Low >40 [facility] Comment on above: National Cholesterol Education Program (NCEP) guidelines:<40 mg/dL: Low HDL-cholesterol (major risk factor for CHD)>= 60 mg/dL: High HDL-cholesterol (negative risk factor for CHD)HDL-cholesterol is affected by a number of factors, e.g. smoking, exercise, hormones, sex and age. Serum or plasma cholesterol measurement (mass/volume)Ordered By: Jesus Alberto Wiggins 05-24-2025 Cholesterol [Mass/Vol] 110 mg/dL <201 [facility] Comment on above: Cholesterol level, D esirable <200 mg/dLBorderline high cholesterol 200-239 mg/dLHigh cholesterol >=240 mg/dLRecommendations of the NCEP Adult Treatment Panel for the following risk-cutoff thresholds for the [place] population. Total proteinOrdered By: Jesus Alberto Wiggins on 05-24-2025 Protein [Mass/Vol] 5.3 g/dL Low 5.9-8.4 [facility] Triglycerides measurementOrd ered By: Jesus Alberto Wiggins on 05-24-2025 Triglyceride [Mass/Vol] 65 mg/dL <199 [facility] Comment on above: The drugs N-Acetylcy steine and Metamizole may falsely depress this assay. Normal range: <150 mg/dLBorderline High: 150-199 mg/dLHigh: 200-499 mg/dLVery High: >500 mg/dL Vitamin B12on 05-24-2025 Cobalamin (Vitamin B12) [Mass/Vol] 649 pg/mL Normal 180-914 [facility] Comment on above: Performed By: #### L 500.4050, L500.4100, L503.0106, L506.1001 #### [facility] [address] [place], [place], [id number] Vitamin B12 ser/plasOrdered By: Jesus Alberto Wiggins on 05-24-2025 Cobalamin (Vitamin B12) [Mass/Vol] 649 pg/mL 180-914 [facility] Vitamin D,25 Hydroxyon 05-24 Vitamin D 25-OH 20.3 ng/mL Low 30-100 [facility] Comment on above: Result Comment: Spring min D Status Deficiency: <20 ng/mL (50nmol/L) Insufficiency: 20-30 ng/mL (50-75 nmol/L) Sufficiency: 30-100 ng/mL (75-250 nmol/L) Toxicity: >100 ng/mL (>250 nmol/L) Performed By: #### L 500.4050, L500.4100, L503.0106, L506.1001 #### [facility] [address] [place], [address] Bedside Glucoseon 05-23-2025 FINGERSTICK GLU 114 mg/dL High 74-106 [facility] Comment on above: Result Comment: MINDY GEMENT OF PATIENT CARE PER NURSING PROTOCOL Performed By: #### L 400.0001 #### [facility] [address] [place], [address] FINGERSTICK GLU 140 mg/dL High 74-106 [facility] Comment on above: Result Comment: MINDY GEMENT OF PATIENT CARE PER NURSING PROTOCOL Performed By: #### L 501.080 #### [facility] [address] [place], [address] FINGERSTICK GLU 131 mg/dL High 74-106 [facility] Comment on above: Result Comment: MINDY GEMENT OF PATIENT CARE PER NURSING PROTOCOL Performed By: #### L 500.2500, L100.0100 #### [facility] [address] [place], [address] FINGERSTICK GLU 119 mg/dL High -106 [facility] Comment on above: Result Comment: MINDY GEMENT OF PATIENT CARE PER NURSING PROTOCOL Performed By: #### L 500.2500, L100.0100 #### [facility] [address] [place], [address] Bedside Glucoseon 05-22-2025 FINGERSTICK GLU 114 mg/dL High -[address] [place] [address] Comment on above: Result Comment: MINDY GEMENT OF PATIENT CARE PER NURSING PROTOCOL Performed By: #### L 500.4050, L500.4100, L503.0106, L506.1001 #### [facility] [address] [place], [address] FINGERSTICK GLU 141 mg/dL High -106 [facility] Comment on above: Result Comment: MINDY GEMENT OF PATIENT CARE PER NURSING PROTOCOL Performed By: #### L 500.2500, L100.0100 #### [facility] [address] [place], [address] FINGERSTICK GLU 115 mg/dL High -106 [facility] Comment on above: Result Comment: MINDY GEMENT OF PATIENT CARE PER NURSING PROTOCOL Performed By: #### L 500.4050, L500.4100, L503.0106, L506.1001 #### [facility] [address] [place], [address] Urinalysis, Completeon 05-22 EPI,SQUAMOUS 0-5 SEEN Normal 0-5 [facility] Comment on above: Order Comment: REHAN TER SPECIMEN Performed By: #### L 500.4050, L500.4100, L503.0106, L506.1001 #### [facility] [address] [place], [address] RBC 0-5 SEEN Normal 0-5 [facility] Comment on above: Order Comment: REHAN TER SPECIMEN Performed By: #### L 500.4050, L500.4100, L503.0106, L506.1001 #### [facility] [address] [place], [address] WBC 0-5 SEEN Normal 0-5 [facility] Comment on above: Order Comment: REHAN TER SPECIMEN Performed By: #### L 500.4050, L500.4100, L503.0106, L506.1001 #### [facility] [address] [place], [address] Urine Cultureon 05-22-2025 URC Culture exhibits no growth. Normal [facility] Comment on above: Performed By: #### L 500.4050, L500.4100, L503.0106, L506.1001 #### [facility] [address] [place], [address] Basic Metabolic Profile (BMP )on 05-21-2025 BUN/CRE 41.0 RATIO High 10-20 [facility] Comment on above: Performed By: #### L 500.2500, L100.0100 #### [facility] [address] [place], [address] Calcium [Mass/Vol] 8.8 mg/dL Normal 7.6-11.0 [facility] Comment on above: Performed By: #### L 500.2500, L100.0100 #### [facility] [address] [place], [address] Chloride [Moles/Vol] 102 mmol/L Normal 98-108 [facility] Comment on above: Performed By: #### L 500.2500, L100.0100 #### [facility] [address] [place], [address] CO2 [Moles/Vol] 25.5 mmol/L Normal 21.0-32.0 [facility] Comment on above: Performed By: #### L 500.2500, L100.0100 #### [facility] [address] [place], [address] Creatinine [Mass/Vol] 0.77 mg/dL Normal 0.70-1.20 [facility] Comment on above: Performed By: #### L 500.2500, L100.0100 #### [facility] [address] [place], [address] ECRCL 56.19 ml/min Normal 50-250 [facility] Comment on above: Performed By: #### L 500.2500, L100.0100 #### [facility] [address] [place], [address] GAP 12 Normal 5-15 [facility] Comment on above: Performed By: #### L 500.2500, L100.0100 #### [facility] [address] [place], [address] GFR/1.73 sq M.predicted among non-blacks MDRD (S/P/Bld) [Vol rate/Area] 86 mL/min/{1.73_m2} Normal >60 [facility] Comment on above: Result Comment: mL/m in/1.73m2 CKD-EPI Creatinine Equation (2020) Performed By: #### L 500.2500, L100.0100 #### [facility] [address] [place], [address] Glucose [Mass/Vol] 133 mg/dL High 70-99 [facility] Comment on above: Performed By: #### L 500.2500, L100.0100 #### [facility] [address] [place], [address] Potassium [Moles/Vol] 4.1 mmol/L Normal 3.3-5.1 [facility] Comment on above: Performed By: #### L 500.2500, L100.0100 #### [facility] [address] [place], [address] Sodium [Moles/Vol] 139 mmol/L Normal 133-145 [facility] Comment on above: Performed By: #### L 500.2500, L100.0100 #### [facility] [address] [place], [address] Urea nitrogen [Mass/Vol] 31 mg/dL High 4-19 [facility] Comment on above: Performed By: #### L 500.2500, L100.0100 #### [facility] [address] [place], [address] Bedside Glucoseon 05-21-2025 FINGERSTICK GLU 127 mg/dL High 74-106 [facility] Comment on above: Result Comment: MINDY GEMENT OF PATIENT CARE PER NURSING PROTOCOL Performed By: #### L 500.4050, L500.4100, L503.0106, L506.1001 #### [facility] [address] [place], [address] FINGERSTICK GLU 121 mg/dL High 74-106 [facility] Comment on above: Result Comment: MINDY GEMENT OF PATIENT CARE PER NURSING PROTOCOL Performed By: #### L 500.4050, L500.4100, L503.0106, L506.1001 #### [facility] [address] [place], [address] FINGERSTICK GLU 130 mg/dL High 74-106 [facility] Comment on above: Result Comment: MINDY MIRZA OF PATIENT CARE PER NURSING PROTOCOL Performed By: #### L 500.4050, L500.4100, L503.0106, L506.1001 #### [facility] [address] [place], [place], [address] Bilirubin Test strip Ql (U)O rdered By: Jesus Alberto Wiggins on 05-21-2025 Bilirubin Ql (U) Negative Negative [facility] Brain/Head without Contrasto n 05-21-2025 Brain/Head without Contrast [facility] Imaging Services [address] [place], [place] [address] Brain/Head without Contrast MR#: [id number] Acct: [id number] Name: FAWN CAMERON Rep #: [id number] : 1935 M 89 From: Tra Brown MD PCP: Dr. Devan Barrera MD Status: REG CLI Study: Brain/Head without Contrast Date of Exam: 04/23 11/15 Exam# [id number] Ordering Dr: Jesus Alberto Wiggins MD PROCEDURE: [...] acute territorial infarct. Atherosclerotic vascular calcifications. Absent [place] ocular lenses. Intact skull base and calvarium. [...] subdural hematoma collection or hygroma. Reading Location: [id number] CC: Dr. Devan Barrera MD; Dr. Jesus Alberto Wiggins MD [place] Worker: Signed Normal [facility] CBC W/Diff, Automatedon - Absolute Lymph 1.20 X10 3/uL Normal 0.83-4.51 [facility] Comment on above: Performed By: #### L 500.2500, L100.0100 #### [facility] [address] [place], [address] Absolute Neut 9.3 X10 3/uL High 2.0-7.7 [facility] Comment on above: Performed By: #### L 500.2500, L100.0100 #### [facility] [address] [place], [address] Basophils/100 WBC (Bld) 0.9 % Normal 0-1 [facility] Comment on above: Performed By: #### L 500.2500, L100.0100 #### [facility] [address] [place], [address] Eosinophils/100 WBC (Bld) 1.7 % Normal 0-5 [facility] Comment on above: Performed By: #### L 500.2500, L100.0100 #### [facility] [address] [place], [address] Erythrocyte distribution width (RBC) [Ratio] 13.0 % Normal 11.6-14.6 [facility] Comment on above: Performed By: #### L 500.2500, L100.0100 #### [facility] [address] [place], [address] Hematocrit (Bld) [Volume fraction] 33.7 % Low 40-54 [facility] Comment on above: Performed By: #### L 500.2500, L100.0100 #### [facility] [address] [place], [address] Hemoglobin (Bld) [Mass/Vol] 10.9 g/dL Low 13.0-16.5 [facility] Comment on above: Performed By: #### L 500.2500, L100.0100 #### [facility] [address] [place], [address] IG% 2.200 High 0.0-0.9 [facility] Comment on above: Result Comment: IG% - Immature Granulocytes (promyelocytes, myelocytes and metamyelocytes) > 1% indicates that a LEFT SHIFT is Present. Performed By: #### L 500.2500, L100.0100 #### [facility] [address] [place], [address] Lymphocytes/100 WBC (Bld) 9.6 % Low 19-41 [facility] Comment on above: Performed By: #### L 500.2500, L100.0100 #### [facility] [address] [place], [address] MCH (RBC) [Entitic mass] 33.1 pg High 27.0-32.0 [facility] Comment on above: Performed By: #### L 500.2500, L100.0100 #### [facility] [address] [place], [address] MCHC (RBC) [Mass/Vol] 32.3 g/dL Normal 32-36 [facility] Comment on above: Performed By: #### L 500.2500, L100.0100 #### [facility] [address] [place], [address] MCV (RBC) [Entitic vol] 102.4 fL High 80-94 [facility] Comment on above: Performed By: #### L 500.2500, L100.0100 #### [facility] [address] [place], [address] Monocytes/100 WBC (Bld) 10.9 % High 0-10 [facility] Comment on above: Performed By: #### L 500.2500, L100.0100 #### [facility] [address] [place], [address] Neutrophils/100 WBC (Bld) 74.7 % High 47-70 [facility] Comment on above: Performed By: #### L 500.2500, L100.0100 #### [facility] [address] [place], [address] Nucleated RBC (Bld) [#/Vol] 0 10*3/uL Normal 0-5 [facility] Comment on above: Performed By: #### L 500.2500, L100.0100 #### [facility] [address] [place], [address] Platelet mean volume (Bld) [Entitic vol] 9.4 fL Normal 6.2-12.0 [facility] Comment on above: Performed By: #### L 500.2500, L100.0100 #### [facility] [address] [place], [address] Platelets (Bld) [#/Vol] 442 10*3/uL Normal 150-450 [facility] Comment on above: Performed By: #### L 500.2500, L100.0100 #### [facility] [address] [place] [place], [address] RBC (Bld) [#/Vol] 3.29 10*6/uL Low 4.6-6.2 [facility] Comment on above: Performed By: #### L 500.2500, L100.0100 #### [facility] [address] [place], [address] RDW SD 48.3 fl High 35.1-43.9 [facility] Comment on above: Performed By: #### L 500.2500, L100.0100 #### [facility] [address] [place], [address] WBC (Bld) [#/Vol] 12.5 10*3/uL High 4.4-11.0 [facility] Comment on above: Performed By: #### L 500.2500, L100.0100 #### [facility] [address] [place], [address] Chest PA and Lateralon 05-[address] [facility] Imaging Services [address] [place] [address] Chest PA and Lateral MR#: [id number] Acct: [id number] Name: FAWN CAMERON Rep #: [id number] : 1935 M 89 From: Tra Brown MD PCP: Dr. Devan Barrera MD Status: ADM IN Study: Chest PA and Lateral Date of Exam: 05/21/25 Exam# [id number] Ordering Dr: Jesus Alberto Wiggins MD PROCEDURE: [...] IMPRESSION: No acute cardiopulmonary disease. Reading Location: [id number] CC: Dr. Devan Barrera MD; Dr. Jesus Alberto Wiggins MD [place] Worker: Signed Normal [facility] Ketones Test strip Ql (U)Ord ered By: Jesus Alberto Wiggins on 05-21-2025 Ketones Ql (U) Negative Negative [facility] Microscopic analysis of urin e for red blood cells (RBC)Ordered By: Jesus Alberto Wiggins on 05-21-2025 Microscopic analysis of urine for red blood cells (RBC) 0-5 SEEN /hpf 0-5 [facility] Mucus LM Ql (Urine sed)Order ed By: Jesus Alberto Wiggins on 05-21-2025 Mucus Ql (Urine sed) 0 SEEN /hpf [facility] Nitrite Test strip Ql (U)Ord ered By: Jesus Alberto Wiggins on 05-21-2025 Nitrite Ql (U) Negative Negative [facility] Protein Test strip Ql (U)Ord ered By: Jesus Alberto Wiggins on 05-21-2025 Protein Ql (U) 30 mg/dl High Negative [facility] Squamous epithelial cells de tection in urine sediment by light microscopyOrdered By: Jesus Alberto Wiggins on 05-21-2025 Epithelial cells.squamous LM Ql (Urine sed) 0-5 SEEN /hpf 0-5 [facility] Urinalysis, Completeon 05-21 BACTERIA 0 SEEN Normal None Seen [facility] Comment on above: Order Comment: REHAN TER SPECIMEN Performed By: #### L 500.4050, L500.4100, L503.0106, L506.1001 #### [facility] [address] [place], [place], [address] Mucus Ql (Urine sed) 0 SEEN Normal [facility] Comment on above: Order Comment: REHAN TER SPECIMEN Performed By: #### L 500.4050, L500.4100, L503.0106, L506.1001 #### [facility] [place], [address] Urine clarityOrdered By: Jesus Alberto Wiggins on 05-21-2025 Clarity (U) Clear Clear [facility] Urine color determinationOrd ered By: Jesus Alberto Wiggins on 05-21-2025 Color (U) Yellow Yellow [facility] Urine cultureOrdered By: Jesus Alberto Wiggins on 05-21-2025 Bacteria identified Cx Nom (U) Culture exhibits no growth. [facility] Urine glucose detectionOrder ed By: Jesus Alberto Wiggins on 05-21-2025 Glucose Ql (U) Normal mg/dl Normal [facility] Urine leukocyte esterase det ection by dipstickOrdered By: Jesus Alberto Wiggins on 05-21-2025 Leukocyte esterase Test strip Ql (U) Negative Negative [facility] Urine pHOrdered By: Jesus Alberto Wiggins on 05-21-2025 pH (U) 6.0 [pH] 5.0 - 8.0 [facility] Urine sediment bacteria coun t by microscopy (number/high power field)Ordered By: Jesus Alberto Wiggins on 05-21-2025 Bacteria LM.HPF (Urine sed) [#/Area] 0 /[HPF] None Seen [facility] Urine specific gravity measu rementOrdered By: Jesus Alberto Wiggins on 05-21-2025 Specific gravity (U) [Rel density] 1.015 1.002-1.030 [facility] Urine urobilinogen measureme ntOrdered By: Jesus Alberto Wiggins on 05-21-2025 Urobilinogen Ql (U) 1 mg/dl High Normal [facility] White blood cell countOrdere d By: Jesus Alberto Wiggins on 05-21-2025 White blood cell count 0-5 SEEN /hpf 0-5 [facility] CBC panel Auto (Bld)on 05-20 Erythrocyte distribution width (RBC) [Ratio] 13.0 % 11.5 - 14.5 % [facility] Hematocrit (Bld) [Volume fraction] 36.6 % Low 41.0 - 52.0 % [facility] Hemoglobin (Bld) [Mass/Vol] 11.5 g/dL Low 13.5 - 17.5 g/dL [facility] Interpretation and review of laboratory results Abnormal [facility] MCH (RBC) [Entitic mass] 33.1 pg 26.0 - 34.0 pg [facility] MCHC (RBC) [Mass/Vol] 31.4 g/dL Low 32.0 - 36.0 g/dL [facility] MCV (RBC) [Entitic vol] 106 fL High 80 - 100 fL [facility] Nucleated RBC/100 WBC (Bld) [Ratio] 0.0 % [facility] Platelets (Bld) [#/Vol] 456 10*3/uL High [facility] RBC (Bld) [#/Vol] 3.47 10*6/uL Low [facility] WBC (Bld) [#/Vol] 13.0 10*3/uL High [facility] Erythrocyte distribution width (RBC) [Ratio] 13.0 % Normal 11.5-14.5 [facility] Comment on above: Performed By: #### 2 4323-8 #### KALIN OSBORN ([id number]) [facility] ([facility]) [address] [place] [address] Hematocrit (Bld) [Volume fraction] 36.6 % Low 41.0-52.0 [facility] Comment on above: Performed By: #### 2 4323-8 #### KALIN OSBORN ([id number]) [facility] ([facility]) [address] [place] [address] Hemoglobin (Bld) [Mass/Vol] 11.5 g/dL Low 13.5-17.5 [facility] Comment on above: Performed By: #### 2 4323-8 #### KALIN OSBORN ([id number]) [facility] ([facility]) [address] [place] [address] MCH (RBC) [Entitic mass] 33.1 pg Normal 26.0-34.0 [facility] Comment on above: Performed By: #### 2 4323-8 #### KALIN OSBORN ([id number]) [facility] ([facility]) [address] [place] [address] MCHC (RBC) [Mass/Vol] 31.4 g/dL Low 32.0-36.0 [facility] Comment on above: Performed By: #### 2 4323-8 #### KALIN OSBORN ([id number]) [facility] ([facility]) [address] [place] [address] MCV (RBC) [Entitic vol] 106 fL High 80-100 [facility] Comment on above: Performed By: #### 2 432-8 #### KALIN OSBORN ([id number]) [facility] ([facility]) [address] [place] [address] Nucleated RBC/100 WBC (Bld) [Ratio] 0.0 /100 WBCs Normal 0.0-0.0 [facility] Comment on above: Performed By: #### 2 432-8 #### KALIN OSBORN ([id number]) [facility] ([facility]) [address] [place], [place] [id number] Platelets (Bld) [#/Vol] 456 x10*3/uL High 150-450 [facility] Comment on above: Performed By: #### 2 4322-8 #### KALIN OSBORN ([id number]) [facility] ([facility]) [address] [place] [address] RBC (Bld) [#/Vol] 3.47 x10*6/uL Low 4.50-5.90 [facility] Comment on above: Performed By: #### 2 4323-8 #### KALIN OSBORN ([id number]) [facility] ([facility]) [address] [place] [address] WBC (Bld) [#/Vol] 13.0 x10*3/uL High 4.4-11.3 [facility] Comment on above: Performed By: #### 2 4323-8 #### KALIN OSBORN ([id number]) [facility] ([facility]) [address] [place] [address] Magnesiumon 05-20-2025 Magnesium [Mass/Vol] 1.92 mg/dL 1.60 - 2.40 mg/dL [facility] Magnesium [Mass/Vol] 1.92 mg/dL Normal 1.60-2.40 [facility] Comment on above: Performed By: #### 2 4323-8 #### GAGNON IRENA ([id number]) [facility] ([facility]) [address] [place] [address] Magnesium [Mass/Vol]on 05-20 Interpretation and review of laboratory results Normal [facility] No Panel Informationon 05-20 [facility] Renal function 2000 panelon 05-20-2025 Albumin BCP dye [Mass/Vol] 3.2 g/dL Low 3.4 - 5.0 g/dL [facility] Anion gap [Moles/Vol] 12 mmol/L 10 - 2 0 mmol/L [facility] Calcium [Mass/Vol] 8.8 mg/dL 8.6 - 10. 6 mg/dL [facility] Chloride [Moles/Vol] 104 mmol/L 98 - 10 7 mmol/L [facility] CO2 [Moles/Vol] 28 mmol/L 21 - 32 mmol/L [facility] Creatinine [Mass/Vol] 0.53 mg/dL 0.50 - 1.30 mg/dL [facility] eGFR - PINF [facility] Comment on above: Calculations of leonides mated GFR are performed using the 2020 CKD-EPI Study Refit equation without the race variable for the IDMS-Traceable creatinine methods. https://jasn.asnjournals.org/content//ASN.81164 80309 Glucose [Mass/Vol] 125 mg/dL High 74 - 99 mg/dL [facility] Interpretation and review of laboratory results Abnormal [facility] Phosphate [Mass/Vol] 3.8 mg/dL 2.5 - 4 .9 mg/dL [facility] Potassium [Moles/Vol] 4.0 mmol/L 3.5 - 5.3 mmol/L [facility] Sodium [Moles/Vol] 140 mmol/L 136 - 145 mmol/L [facility] Urea nitrogen [Mass/Vol] 26 mg/dL High 6 - 23 mg/dL [facility] Albumin BCP dye [Mass/Vol] 3.2 g/dL Low 3.4-5.0 [facility] Comment on above: Performed By: #### 2 4323-8 #### KALIN OSBORN ([id number]) [facility] ([facility]) [address] [place] [address] Anion gap [Moles/Vol] 12 mmol/L Normal 10-20 [facility] Comment on above: Performed By: #### 2 4323-8 #### KALIN OSBORN ([id number]) [facility] ([facility]) [address] [place] [address] Calcium [Mass/Vol] 8.8 mg/dL Normal 8.6-10.6 [facility] Comment on above: Performed By: #### 2 4323-8 #### KALIN OSBORN ([id number]) [facility] ([facility]) [address] [place] [address] Chloride [Moles/Vol] 104 mmol/L Normal 98-107 [facility] Comment on above: Performed By: #### 2 4323-8 #### KALIN OSBORN ([id number]) [facility] ([facility]) [address] [place] [address] CO2 [Moles/Vol] 28 mmol/L Normal 21-32 [facility] Comment on above: Performed By: #### 2 4323-8 #### KALIN OSBORN ([id number]) [facility] ([facility]) [address] [place] [address] Creatinine [Mass/Vol] 0.53 mg/dL Normal 0.50-1.30 [facility] Comment on above: Performed By: #### 2 4323-8 #### KALIN OSBORN ([id number]) [facility] [facility]) [address] [place] [address] 15373 Glomerular filtration rate >90 Normal >60 [facility] Comment on above: Result Comment: Calc ulations of estimated GFR are performed using the 2020 CKD-EPI Study Refit equation without the race variable for the IDMS-Traceable creatinine methods. https://jasn.asnjournals.org/content//ASN.57589 48507 Performed By: #### 2 4323-8 #### KALIN OSBORN ([id number]) [facility] ([facility]) [address] [place] [address] 20237 Glucose [Mass/Vol] 125 mg/dL High 74-99 [facility] Comment on above: Performed By: #### 2 4323-8 #### KALIN OSBORN ([id number]) [facility] ([facility]) [address] [place] [address] 68882 Phosphate [Mass/Vol] 3.8 mg/dL Normal 2.5-4.9 [facility] Comment on above: Performed By: #### 2 4323-8 #### KALIN OSBORN ([id number]) [facility] ([facility]) [address] [place] [address] 81434 Potassium [Moles/Vol] 4.0 mmol/L Normal 3.5-5.3 [facility] Comment on above: Performed By: #### 2 4323-8 #### KALIN OSBORN ([id number]) [facility] ([facility]) [address] [place] [address] 01104 Sodium [Moles/Vol] 140 mmol/L Normal 136-145 [facility] Comment on above: Performed By: #### 2 4323-8 #### KALIN OSBORN ([id number]) [facility] ([facility]) [address] [place] [address] 08236 Urea nitrogen [Mass/Vol] 26 mg/dL High 6-23 [facility] Comment on above: Performed By: #### 2 4323-8 #### KALIN OSBORN ([id number]) [facility] ([facility]) [address] [place] [address] 15645 XR ABDOMEN 1 VIEWon 05-19-20 XR ABDOMEN 1 VIEW Interpreted By: Oj Regan, STUDY: XR ABDOMEN 1 VIEW; 05/19/2025 11:35 am INDICATION: Signs/Symptoms:eval dobhoff placement. COMPARISON: 05/15/2025. ACCESSION NUMBER(S): [id number] ORDERING CLINICIAN: ELAINE MADRIGAL FINDINGS: Dobbhoff tube [...] Oj Regan 05/19/2025 12:02 PM Dictation workstation: [id number] [facility] XR Abdomen Single viewon 1. Dobbhoff tube overlies the 2nd duodenum. Contrast within nondistended colonic loops. Signed by: Oj Regan 05/19/2025 12:02 PM Dictation workstation: [id number] Interpreted By: Oj Regan, STUDY: XR ABDOMEN 1 VIEW; 05/19/2025 11:35 am INDICATION: Signs/Symptoms:eval dobhoff placement. COMPARISON: 05/15/2025. ACCESSION NUMBER(S): [id number] ORDERING CLINICIAN: ELAINE MADRIGAL FINDINGS: Dobbhoff tube [...] Signs/Symptoms:eval dobhoff placement. COMPARISON: 05/15/2025. ACCESSION NUMBER(S): [id number] ORDERING CLINICIAN: ELAINE MADRIGAL FINDINGS: Dobbhoff tube [...] Oj Regan 05/19/2025 12:02 PM Dictation workstation: [id number] [facility] Work Phone: Radiology Study observation (narrative) [facility] Work Phone: XR Abdomen Single viewOrdere d By: Aidee Regan on 05-19-2025 [facility] Work Phone: RF videography Hypopharynx a nd Esophagus Views for swallowing function W speech and W barium contrast Julito 05-16-2025 Interpreted By: Antonio Mccollum and Nelson Camree STUDY: [place] MODIFIED BARIUM SWALLOW STUDY;; 05/14/2025 1:53 pm INDICATION: Signs/Symptoms:R/o aspiration, oropharyngeal dysphagia. COMPARISON: None. ACCESSION NUMBER(S): [id number] ORDERING CLINICIAN: LAY WALDROP TECHNIQUE: MBSS completed. Informed verbal consent obtained prior to completion of exam. Trials of thin, nectar thick, honey thick, puree, soft-solids, and regular solids given. MINT MACHINE OPERATOR: Shannon Santos Phone/Pager: [phone] SPEECH FINDINGS: Speech-Language Pathology Inpatient Modified Barium Swallow Study Patient Name: Fawn Brown" : 1935 Today's Date: 05/14/25 Start Time: 1300 Stop Time: 1335 Time Calculation (min): 35 Modified Barium Swallow Study completed. Informed verbal consent obtained prior to completion of exam. Trials of thin liquids via tsp/straw, mildly (nectar) thick liquids via tsp/straw, moderately (honey) thick liquids via tsp/straw, purees, and regular solids were given. 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 MINT MACHINE OPERATOR Frequency: pending GOC decisions made Discussed POC: [...] given on all accounts. Treatment Provided Today: MINT MACHINE OPERATOR provided extensive education and training to pt/pt [...] further evaluation by medical specialists, as applicable. MINT MACHINE OPERATOR Impressions with Severity Rating: Pt awake/alert, consistently cooperative/able to follow commands, and responded appropriately to conversation/questions by MINT MACHINE OPERATOR. Missing dentition noted. Severe oropharyngeal dysphagia. Prolonged [...] aspiration, oropharyngeal dysphagia. COMPARISON: None. ACCESSION NUMBER(S): [id number] ORDERING CLINICIAN: LAY WALDROP TECHNIQUE: MBSS completed. Informed verbal consent obtained prior to completion of exam. Trials of thin, nectar thick, honey thick, puree, soft-solids, and regular solids given. MINT MACHINE OPERATOR: Shannon Santos Phone/Pager: [phone] SPEECH FINDINGS: Speech-Language Pathology Inpatient Modified Barium Swallow Study Patient Name: Fawn Brown" : 1935 Today's Date: 05/14/25 Start Time: 1300 Stop Time: 1335 Time Calculation (min): 35 Modified Barium Swallow Study completed. Informed verbal consent obtained prior to completion of exam. Trials of thin liquids via tsp/straw, mildly (nectar) thick liquids via tsp/straw, moderately (honey) thick liquids via tsp/straw, purees, and regular solids were given. 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 MINT MACHINE OPERATOR Frequency: pending GOC decisions made Discussed POC: [...] given on all accounts. Treatment Provided Today: MINT MACHINE OPERATOR provided extensive education and training to pt/pt [...] further evaluation by medical specialists, as applicable. MINT MACHINE OPERATOR Impressions with Severity Rating: Pt awake/alert, consistently cooperative/able to follow commands, and responded appropriately to conversation/questions by MINT MACHINE OPERATOR. Missing dentition noted. Severe oropharyngeal dysphagia. Prolonged [...] in significant mike (more content not included)... [facility] Work Phone: RF videography Hypopharynx a nd Esophagus Views for swallowing function W speech and W barium contrast POOrdered By: Antonio Lane on 05-16-2025 [facility] Work Phone: XR Abdomen Single viewon 1. Dobbhoff tube wit h the tip projecting over the expected position of the proximal duodenum. 2. Nonobstructive bowel-gas pattern. 3. Linear opacity in the right mid/lower lung zone, likely atelectatic change. I personally reviewed the images/study and I agree with the findings as stated by resident Freedom Luna. This study was interpreted at [place], [place]. MACRO: None Signed by: Michelle Blackwell 05/16/2025 6:04 AM Dictation workstation: [id number] Interpreted By: Michelle Braga and Ritchie Brandon STUDY: XR ABDOMEN 1 VIEW; 05/15/2025 5:16 pm INDICATION: Signs/Symptoms:Confirm DHT placement. COMPARISON: CT chest abdomen pelvis 05/10/2025. ACCESSION NUMBER(S): [id number] ORDERING CLINICIAN: LAY WALDROP FINDINGS: Dobbhoff tube [...] CT chest abdomen pelvis 05/10/2025. ACCESSION NUMBER(S): [id number] ORDERING CLINICIAN: LAY WALDROP FINDINGS: Dobbhoff tube [...] Freedom Luna. This study was interpreted at [place], [place]. MACRO: None Signed by: Michelle Blackwell 05/16/2025 6:04 AM Dictation workstation: [id number] [facility] Work Phone: XR Abdomen Single viewOrdere d By: Michelle Blackwell on 05-16-2025 [facility] Work Phone: Glucose Test strip manual (B ld) [Mass/Vol]on 05-15-2025 Glucose [Mass/Vol] 127 mg/dL High 74 - 99 mg/dL [facility] Interpretation and review of laboratory results Abnormal [facility] Glucose [Mass/Vol] 127 mg/dL High 74-99 [facility] Comment on above: Performed By: #### 5 7021-8 #### GAGNON IRENA ([id number]) [facility] ([facility]) [address] [place] [address] XR ABDOMEN 1 VIEWon 05-15-20 XR ABDOMEN 1 VIEW Interpreted By: Michelle Braga and Jeremy Loja STUDY: XR ABDOMEN 1 VIEW; 05/15/2025 5:16 pm INDICATION: Signs/Symptoms:Confirm DHT placement. COMPARISON: CT chest abdomen pelvis 05/10/2025. ACCESSION NUMBER(S): [id number] ORDERING CLINICIAN: LAY WALDROP FINDINGS: Dobbhoff tube [...] Freedom Luna. This study was interpreted at [place], [place]. MACRO: None Signed by: Michelle Blackwell 05/16/2025 6:04 AM Dictation workstation: [id number] Normal [facility] Comment on above: Order Comment: RN to release order via task on Brain when patient is ready for x-ray confirmation of feeding tube placement. XR Abdomen Single viewon Radiology Study observation (narrative) [facility] Work Phone: CBC panel Auto (Bld)on 05-14 Erythrocyte distribution width (RBC) [Ratio] 12.4 % 11.5 - 14.5 % [facility] Hematocrit (Bld) [Volume fraction] 35.5 % Low 41.0 - 52.0 % [facility] Hemoglobin (Bld) [Mass/Vol] 11.3 g/dL Low 13.5 - 17.5 g/dL [facility] Interpretation and review of laboratory results Abnormal [facility] MCH (RBC) [Entitic mass] 33.6 pg 26.0 - 34.0 pg [facility] MCHC (RBC) [Mass/Vol] 31.8 g/dL Low 32.0 - 36.0 g/dL [facility] MCV (RBC) [Entitic vol] 106 fL High 80 - 100 fL [facility] Nucleated RBC/100 WBC (Bld) [Ratio] 0.0 % [facility] Platelets (Bld) [#/Vol] 175 10*3/uL [facility] RBC (Bld) [#/Vol] 3.36 10*6/uL Low [facility] WBC (Bld) [#/Vol] 10.0 10*3/uL [facility] Erythrocyte distribution width (RBC) [Ratio] 12.4 % Normal 11.5-14.5 [facility] Comment on above: Performed By: #### 5 7021-8 #### KALIN OSBORN ([id number]) [facility] ([facility]) [address] [place] [address] 55926 Hematocrit (Bld) [Volume fraction] 35.5 % Low 41.0-52.0 [facility] Comment on above: Performed By: #### 5 7021-8 #### KALIN OSBORN ([id number]) [facility] ([facility]) [address] [place] [address] 21021 Hemoglobin (Bld) [Mass/Vol] 11.3 g/dL Low 13.5-17.5 [facility] Comment on above: Performed By: #### 5 7021-8 #### KALIN OSBORN ([id number]) [facility] ([facility]) [address] [place] [address] 90250 MCH (RBC) [Entitic mass] 33.6 pg Normal 26.0-34.0 [facility] Comment on above: Performed By: #### 5 7021-8 #### KALIN OSBORN ([id number]) [facility] ([facility]) [address] [place] [address] 60311 MCHC (RBC) [Mass/Vol] 31.8 g/dL Low 32.0-36.0 [facility] Comment on above: Performed By: #### 5 7021-8 #### KALIN OSBORN ([id number]) [facility] ([facility]) [address] [place] [address] MCV (RBC) [Entitic vol] 106 fL High 80-100 [facility] Comment on above: Performed By: #### 5 7021-8 #### KALIN OSBORN ([id number]) [facility] ([facility]) [address] [place] [address] Nucleated RBC/100 WBC (Bld) [Ratio] 0.0 /100 WBCs Normal 0.0-0.0 [facility] Comment on above: Performed By: #### 5 7021-8 #### KALIN OSBORN ([id number]) [facility] ([facility]) [address] [place] [address] 06584 Platelets (Bld) [#/Vol] 175 x10*3/uL Normal 150-450 [facility] Comment on above: Performed By: #### 5 7021-8 #### KALIN OSBORN ([id number]) [facility] ([facility]) [address] [place] [address] 87181 RBC (Bld) [#/Vol] 3.36 x10*6/uL Low 4.50-5.90 [facility] Comment on above: Performed By: #### 5 7021-8 #### KALIN OSBORN ([id number]) [facility] ([facility]) [address] [place] [address] 74716 WBC (Bld) [#/Vol] 10.0 x10*3/uL Normal 4.4-11.3 [facility] Comment on above: Performed By: #### 5 7021-8 #### KALIN OSBORN ([id number]) [facility] ([facility]) [address] [place] [address] [place] MODIFIED BARIUM SWALLOW S Elyssa 05-14-2025 [place] MODIFIED BARIUM SWALLOW STUDY Interpreted By: Antonio Bullock and Nelson Camree STUDY: [place] MODIFIED BARIUM SWALLOW STUDY;; 05/14/2025 1:53 pm INDICATION: Signs/Symptoms:R/o aspiration, oropharyngeal dysphagia. COMPARISON: None. ACCESSION NUMBER(S): [id number] ORDERING CLINICIAN: LAY WALDROP TECHNIQUE: MBSS completed. Informed verbal consent obtained prior to completion of exam. Trials of thin, nectar thick, honey thick, puree, soft-solids, and regular solids given. MINT MACHINE OPERATOR: Shannon Santos Phone/Pager: [phone] SPEECH FINDINGS: Speech-Language Pathology Inpatient Modified Barium Swallow Study Patient Name: Fawn Brown" : 1935 Today's Date: 05/14/25 Start Time: 1300 Stop Time: 1335 Time Calculation (min): 35 Modified Barium Swallow Study completed. Informed verbal consent obtained prior to completion of exam. Trials of thin liquids via tsp/straw, mildly (nectar) thick liquids via tsp/straw, moderately (honey) thick liquids via tsp/straw, purees, and regular solids were given. 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 MINT MACHINE OPERATOR Frequency: pending GOC decisions made Discussed POC: [...] given on all accounts. Treatment Provided Today: MINT MACHINE OPERATOR provided extensive education and training to pt/pt [...] further evaluation by medical specialists, as applicable. MINT MACHINE OPERATOR Impressions with Severity Rating: Pt awake/alert, consistently cooperative/able to follow commands, and responded appropriately to conversation/questions by MINT MACHINE OPERATOR. Missing dentition noted. Severe oropharyngeal dysphagia. Prolonged [...] per bolu (more content not included)... Normal [facility] RF videography Hypopharynx a nd Esophagus Views for swallowing function W speech and W barium contrast Julito 05-14-2025 Radiology Study observation (narrative) [facility] Work Phone: MINT MACHINE OPERATOR Modified Barium Swallow Evaluationon 05-14-2025 FLAVIA Humphrey 05/14/2025 2:48 PM Speech-Language Pathology Inpatient Modified Barium Swallow Study Patient Name: Fawn Cameron "Andres" : 1935 Today's Date: 05/14/25 Start Time: 1300 Stop Time: 1335 Time Calculation (min): 35 Modified Barium Swallow Study completed. Informed verbal consent obtained prior to completion of exam. Trials of thin liquids via tsp/straw, mildly (nectar) thick liquids via tsp/straw, moderately (honey) thick liquids via tsp/straw, purees, and regular solids were given. 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 MINT MACHINE OPERATOR Frequency: pending GOC decisions made Discussed POC: [...] given on all accounts. Treatment Provided Today: MINT MACHINE OPERATOR provided extensive education and training to pt/pt [...] further evaluation by medical specialists, as applicable. MINT MACHINE OPERATOR Impressions with Severity Rating: Pt awake/alert, consistently cooperative/able to follow commands, and responded appropriately to conversation/questions by MINT MACHINE OPERATOR. Missing dentition noted. Severe oropharyngeal dysphagia. Prolonged [...] closure; however, eventual (more content not included)... [facility] Work Phone: CBC panel Auto (Bld)on 05-13 Erythrocyte distribution width (RBC) [Ratio] 12.4 % 11.5 - 14.5 % [facility] Hematocrit (Bld) [Volume fraction] 35.0 % Low 41.0 - 52.0 % [facility] Hemoglobin (Bld) [Mass/Vol] 10.8 g/dL Low 13.5 - 17.5 g/dL [facility] Interpretation and review of laboratory results Abnormal [facility] MCH (RBC) [Entitic mass] 33.1 pg 26.0 - 34.0 pg [facility] MCHC (RBC) [Mass/Vol] 30.9 g/dL Low 32.0 - 36.0 g/dL [facility] MCV (RBC) [Entitic vol] 107 fL High 80 - 100 fL [facility] Nucleated RBC/100 WBC (Bld) [Ratio] 0.0 % [facility] Platelets (Bld) [#/Vol] 151 10*3/uL [facility] RBC (Bld) [#/Vol] 3.26 10*6/uL Low [facility] WBC (Bld) [#/Vol] 12.4 10*3/uL High [facility] Erythrocyte distribution width (RBC) [Ratio] 12.4 % Normal 11.5-14.5 [facility] Comment on above: Performed By: #### 5 7021-8 #### KALIN OSBORN ([id number]) [facility] ([facility]) [address] [place] [address] Hematocrit (Bld) [Volume fraction] 35.0 % Low 41.0-52.0 [facility] Comment on above: Performed By: #### 5 7021-8 #### KALIN OSBORN ([id number]) [facility] ([facility]) [address] [place] [address] 74836 Hemoglobin (Bld) [Mass/Vol] 10.8 g/dL Low 13.5-17.5 [facility] Comment on above: Performed By: #### 5 7021-8 #### KALIN OSBORN ([id number]) [facility] ([facility]) [address] [place] [address] 86400 MCH (RBC) [Entitic mass] 33.1 pg Normal 26.0-34.0 [facility] Comment on above: Performed By: #### 5 7021-8 #### KALIN OSBORN ([id number]) [facility] ([facility]) [address] [place] [address] 57601 MCHC (RBC) [Mass/Vol] 30.9 g/dL Low 32.0-36.0 [facility] Comment on above: Performed By: #### 5 7021-8 #### KALIN OSBORN ([id number]) [facility] ([facility]) [address] [place] [address] 66209 MCV (RBC) [Entitic vol] 107 fL High 80-100 [facility] Comment on above: Performed By: #### 5 7021-8 #### KALIN OSBORN ([id number]) [facility] ([facility]) [address] [place] [address] 85973 Nucleated RBC/100 WBC (Bld) [Ratio] 0.0 /100 WBCs Normal 0.0-0.0 [facility] Comment on above: Performed By: #### 5 7021-8 #### KALIN OSBORN ([id number]) [facility] ([facility]) [address] [place] [address] 39867 Platelets (Bld) [#/Vol] 151 x10*3/uL Normal 150-450 [facility] Comment on above: Performed By: #### 5 7021-8 #### KALIN OSBORN ([id number]) [facility] ([facility]) [address] [place] [address] 34375 RBC (Bld) [#/Vol] 3.26 x10*6/uL Low 4.50-5.90 [facility] Comment on above: Performed By: #### 5 7021-8 #### KALIN OSBORN ([id number]) [facility] ([facility]) [facility] [place] [address] WBC (Bld) [#/Vol] 12.4 x10*3/uL High 4.4-11.3 [facility] Comment on above: Performed By: #### 5 7021-8 #### KALIN OSBORN ([id number]) [facility] ([facility]) [address] [place] [address] 99893 Magnesiumon 05-13-2025 Magnesium [Mass/Vol] 2.35 mg/dL 1.60 - 2.40 mg/dL [facility] Magnesium [Mass/Vol] 2.35 mg/dL Normal 1.60-2.40 [facility] Comment on above: Performed By: #### 5 7021-8 #### KALIN OSBORN ([id number]) [facility] ([facility]) [address] [place] [address] 83209 Magnesium [Mass/Vol]on 05-13 Interpretation and review of laboratory results Normal [facility] No Panel Informationon 05-13 [facility] Renal function 2000 panelon 05-13-2025 Albumin BCP dye [Mass/Vol] 3.2 g/dL Low 3.4 - 5.0 g/dL [facility] Anion gap [Moles/Vol] 13 mmol/L 10 - 2 0 mmol/L [facility] Calcium [Mass/Vol] 8.0 mg/dL Low 8.6 - 10. 6 mg/dL [facility] Chloride [Moles/Vol] 107 mmol/L 98 - 10 7 mmol/L [facility] CO2 [Moles/Vol] 24 mmol/L 21 - 32 mmol/L [facility] Creatinine [Mass/Vol] 0.62 mg/dL 0.50 - 1.30 mg/dL [facility] eGFR - PINF [facility] Comment on above: Calculations of leonides mated GFR are performed using the 2020 CKD-EPI Study Refit equation without the race variable for the IDMS-Traceable creatinine methods. https://jasn.asnjournals.org/content//ASN.56624 98457 Glucose [Mass/Vol] 90 mg/dL 74 - 99 mg/dL [facility] Interpretation and review of laboratory results Abnormal [facility] Phosphate [Mass/Vol] 3.0 mg/dL 2.5 - 4 .9 mg/dL [facility] Potassium [Moles/Vol] 4.2 mmol/L 3.5 - 5.3 mmol/L [facility] Sodium [Moles/Vol] 140 mmol/L 136 - 145 mmol/L [facility] Urea nitrogen [Mass/Vol] 22 mg/dL 6 - 23 mg/dL [facility] Albumin BCP dye [Mass/Vol] 3.2 g/dL Low 3.4-5.0 [facility] Comment on above: Performed By: #### 5 7021-8 #### KAILN OSBORN ([id number]) [facility] ([facility]) [facility] [place] [address] Anion gap [Moles/Vol] 13 mmol/L Normal 10-20 [facility] Comment on above: Performed By: #### 5 7021-8 #### KALIN OSBORN ([id number]) [facility] ([facility]) [facility] [place] [address] Calcium [Mass/Vol] 8.0 mg/dL Low 8.6-10.6 [facility] Comment on above: Performed By: #### 5 7021-8 #### KALIN OSBORN ([id number]) [facility] ([facility]) [address] [place] [address] Chloride [Moles/Vol] 107 mmol/L Normal 98-107 [facility] Comment on above: Performed By: #### 5 7021-8 #### KALIN OSBORN ([id number]) [facility] ([facility]) [facility] [place] [address] CO2 [Moles/Vol] 24 mmol/L Normal 21-32 [facility] Comment on above: Performed By: #### 5 7021-8 #### KALIN OSBORN ([id number]) [facility] ([facility]) [facility] [place] [address] Creatinine [Mass/Vol] 0.62 mg/dL Normal 0.50-1.30 [facility] Comment on above: Performed By: #### 5 7021-8 #### KALIN OSBORN ([id number]) [facility] ([facility]) [address] [place] [address] 41486 Glomerular filtration rate >90 Normal >60 [facility] Comment on above: Result Comment: Calc ulations of estimated GFR are performed using the 2020 CKD-EPI Study Refit equation without the race variable for the IDMS-Traceable creatinine methods. https://jasn.asnjournals.org/content/early//ASN.80344 46027 Performed By: #### 5 7021-8 #### KALIN OSBORN ([id number]) [facility] ([facility]) [address] [place] [address] 90597 Glucose [Mass/Vol] 90 mg/dL Normal 74-99 [facility] Comment on above: Performed By: #### 5 7021-8 #### KALIN OSBORN ([id number]) [facility] ([facility]) [address] [place] [address] 29546 Phosphate [Mass/Vol] 3.0 mg/dL Normal 2.5-4.9 [facility] Comment on above: Performed By: #### 5 7021-8 #### KALIN OSBORN ([id number]) [facility] ([facility]) [address] [place] [address] 09089 Potassium [Moles/Vol] 4.2 mmol/L Normal 3.5-5.3 [facility] Comment on above: Performed By: #### 5 7021-8 #### KALIN OSBORN ([id number]) [facility] ([facility]) [address] [place] [address] 72545 Sodium [Moles/Vol] 140 mmol/L Normal 136-145 [facility] Comment on above: Performed By: #### 5 7021-8 #### GAGNON IRENA ([id number]) [facility] ([facility]) [address] [place] [address] Urea nitrogen [Mass/Vol] 22 mg/dL Normal 6- [facility] Comment on above: Performed By: #### 5 7021-8 #### GAGNON IRENA ([id number]) [facility] ([facility]) [facility] [place] [address] TRANSTHORACIC ECHO (TTE) COM PLETEon 05-13-2025 TRANSTHORACIC ECHO (TTE) COMPLETE [facility], [address] [place] [address] and TRANSTHORACIC ECHOCARDIOGRAM REPORT Patient Name: FAWN CAMERON Reading Physician: [id number] Noelle Roberts MD Study Date: 05/13/2025 Ordering Provider: [id number] LAY WALDROP MRN/PID: [id number] Fellow: Nurse: Date of /Age: 5 1935 [employer] Scout: Enmanuel sarmiento RDCS, RVT Gender assigned at M Additional Staff: : Height: 167.64 cm Admit Date: 05/10/2025 Weight: 66.23 kg Admission Status: Inpatient - STAT BSA / BMI: 1.75 m2 / 23.57 kg/m2 Blood Pressure: 120/77 mmHg Department Location: [place] [address] Study Type: TRANSTHORACIC ECHO (TTE) COMPLETE Diagnosis/ICD: Syncope-R55 Indication: syncopal work-up CPT Code: Echo Complete w Full Doppler-[id number] Patient History: Pertinent History: HTN, HLD, TIA, [...] previous echocardiogram(s): Compared with study dated 07/31/2024, [facility], no significant changes from the report, [...] regurgitation. 6. Compared with study dated 07/31/2024, [facility], no significant changes from the report, [...] LA Area A2C: 12.1 cm2 LA Major Stella A4C: 4.4 cm LA Major Stella A2C: 4.8 cm RIGHT ATRIUM: Normal Ranges: [...] 67.70 cm/s (more content not included)... Normal [facility] US Heart TransthoracicOrdere d By: Noelle Roberts on 05-13-2025 Aortic Valve Area by Continuity of Peak Velocity 1.77 cm2 [facility] Work Phone: Aortic Valve Area by Continuity of VTI 1.69 cm2 [facility] Work Phone: AV mn grad 8 mmHg [facility] Work Phone: AV pk grad 15 mmHg [facility] Work Phone: AV pk neetu 1.92 m/s [facility] Work Phone: LA vol index A/L 18.7 ml/m2 [facility] Work Phone: LV A4C EF 70.4 [facility] Work Phone: LV EF 63 % [facility] Work Phone: LVIDd 4.70 cm [facility] Work Phone: LVOT diam 2.00 cm [facility] Work Phone: MV E/A ratio 0.73 [facility] Work Phone: RV free wall pk S' 12.60 cm/s [facility] Work Phone: RVSP 39 mmHg [facility] Work Phone: Tricuspid annular plane systolic excursion 2.2 cm [facility] Work Phone: [facility] Work Phone: US Heart Transthoracicon [facility], [address] [place] [address] and TRANSTHORACIC ECHOCARDIOGRAM REPORT Patient Name: FAWN Lee Physician: [id number] Noelle Roberts MD Study Date: 05/13/2025 Ordering Provider: [id number] LAY WALDROP MRN/PID: [id number] Fellow: Nurse: 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: Enmanuel sarmiento RDCS, RVT Gender assigned at Additional Staff: : Height: 167.64 cm Admit Date: 05/10/2025 Weight: 66.23 kg Admission Status: Inpatient - STAT BSA / BMI: 1.75 m2 / 23.57 kg/m2 Blood Pressure: 120/77 mmHg Department Location: [place] [address] Study Type: TRANSTHORACIC ECHO (TTE) COMPLETE Diagnosis/ICD: Syncope-R55 Indication: syncopal work-up CPT Code: Echo Complete w Full Doppler-97663 Patient History: Pertinent History: HTN, HLD, TIA, [...] previous echocardiogram(s): Compared with study dated 07/31/2024, [facility], no significant changes from the report, [...] regurgitation. 6. Compared with study dated 07/31/2024, [facility], no significant changes from the report, [...] included)... JANETO Noelle Roberts MD - 05/13/2025 [facility], [address] [place] [address] and TRANSTHORACIC ECHOCARDIOGRAM REPORT Patient Name: FAWN CAMERON Reading Physician: [id number] Noelle Roberts MD Study Date: 05/13/2025 Ordering Provider: [id number] LAY WALDROP MRN/PID: [id number] Fellow: Nurse: Date of /Age: 5 1935 [employer] Scout: Enmanuel [place] years RDCS, RVT Gender assigned at M Additional Staff: : Height: 167.64 cm Admit Date: 05/10/2025 Weight: 66.23 kg Admission Status: Inpatient - STAT BSA / BMI: 1.75 m2 / 23.57 kg/m2 Blood Pressure: 120/77 mmHg Department Location: [place] [address] Study Type: TRANSTHORACIC ECHO (TTE) COMPLETE Diagnosis/ICD: Syncope-R55 Indication: syncopal work-up CPT Code: Echo Complete w Full Doppler-44517 Patient History: Pertinent History: HTN, HLD, TIA, [...] previous echocardiogram(s): Compared with study dated 07/31/2024, [facility], no significant changes from the report, [...] regurgitation. 6. Compared with study dated 07/31/2024, [facility], no significant changes from the report, [...] LA Area A2C: 12.1 cm2 LA Major Stella A4C: 4.4 cm LA Major Stella A2C: 4.8 cm RIGHT ATRIUM: Normal Ranges: [...] 0.086 m/s ( (more content not included)... [facility] Work Phone: 25-hydroxyvitamin D3 [Mass/V ol]on 05-12-2025 Deficiency: < 20 ng/ ml Insufficiency: 20-29 ng/ml Sufficiency: 30-100 ng/ml This assay accurately quantifies the sum of Vitamin D3, 25-Hydroxy and Vitamin D2,25-Hydroxy. [facility] Calcidiolon 05-12-2025 25-hydroxyvitamin D3 [Mass/Vol] 18 ng/mL Low 30-100 [facility] Comment on above: Order Comment: Defic iency: < 20 ng/mlInsufficiency: 20-29 ng/mlSufficiency: 30-100 ng/mlThis assay accurately quantifies the sum of Vitamin D3, 25-Hydroxy and Vitamin D2,25-Hydroxy. Performed By: #### 5 7021-8 #### KALIN OSBORN ([id number]) [facility] ([facility]) [address] [place] [address] 52005 Cobalamin (Vitamin B12) [Mas s/Vol]on 05-12-2025 Interpretation and review of laboratory results Normal [facility] Cobalaminson 05-12-2025 Cobalamin (Vitamin B12) [Mass/Vol] 283 pg/mL Normal 211-911 [facility] Comment on above: Performed By: #### 2 4323-8 #### KALIN OSBORN ([id number]) [facility] ([facility]) [address] [place] [address] 36710 Free T4 [Mass/Vol]on Interpretation and review of laboratory results Normal [facility] Thyroxine Free testi ng is performed using different testing methodology at [facility] than at other [facility]. Direct result comparisons should only be made within the same method. [facility] Magnesiumon 05-12-2025 Magnesium [Mass/Vol] 1.75 mg/dL 1.60 - 2.40 mg/dL [facility] Magnesium [Mass/Vol] 1.75 mg/dL Normal 1.60-2.40 [facility] Comment on above: Performed By: #### 2 4323-8 #### GAGNON IRENA ([id number]) [facility] ([facility]) [address] [place] [address] Magnesium [Mass/Vol]on 05-12 Interpretation and review of laboratory results Normal [facility] No Panel Informationon 05-12 Interpretation and review of laboratory results Abnormal [facility] Renal function 2000 panelon 05-12-2025 Albumin BCP dye [Mass/Vol] 3.1 g/dL Low 3.4 - 5.0 g/dL [facility] Anion gap [Moles/Vol] 12 mmol/L 10 - 2 0 mmol/L [facility] Calcium [Mass/Vol] 7.2 mg/dL Low 8.6 - 10. 6 mg/dL [facility] Chloride [Moles/Vol] 109 mmol/L High 98 - 10 7 mmol/L [facility] CO2 [Moles/Vol] 22 mmol/L 21 - 32 mmol/L [facility] Creatinine [Mass/Vol] 0.66 mg/dL 0.50 - 1.30 mg/dL [facility] GFR/1.73 sq M.predicted among non-blacks MDRD (S/P/Bld) [Vol rate/Area] 90 mL/min/{1.73_m2} - PINF [facility] Comment on above: Calculations of leonides mated GFR are performed using the 2020 CKD-EPI Study Refit equation without the race variable for the IDMS-Traceable creatinine methods. https://jasn.asnjournals.org/content/early//ASN.45785 14866 Glucose [Mass/Vol] 81 mg/dL 74 - 99 mg/dL [facility] Interpretation and review of laboratory results Abnormal [facility] Phosphate [Mass/Vol] 3.0 mg/dL 2.5 - 4 .9 mg/dL [facility] Potassium [Moles/Vol] 3.5 mmol/L 3.5 - 5.3 mmol/L [facility] Sodium [Moles/Vol] 139 mmol/L 136 - 145 mmol/L [facility] Urea nitrogen [Mass/Vol] 18 mg/dL 6 - 23 mg/dL [facility] Albumin BCP dye [Mass/Vol] 3.1 g/dL Low 3.4-5.0 [facility] Comment on above: Performed By: #### 2 4323-8 #### KALIN OSBORN ([id number]) [facility] ([facility]) [address] [place] [address] 52317 Anion gap [Moles/Vol] 12 mmol/L Normal 10-20 [facility] Comment on above: Performed By: #### 2 4323-8 #### KALNI OSBORN ([id number]) [facility] ([facility]) [address] [place] [address] 94283 Calcium [Mass/Vol] 7.2 mg/dL Low 8.6-10.6 [facility] Comment on above: Performed By: #### 2 4323-8 #### KALIN OSBORN ([id number]) [facility] ([facility]) [address] [place] [address] 66082 Chloride [Moles/Vol] 109 mmol/L High 98-107 [facility] Comment on above: Performed By: #### 2 4323-8 #### KALIN OSBORN ([id number]) [facility] ([facility]) [address] [place] [address] 95281 CO2 [Moles/Vol] 22 mmol/L Normal 21-32 [facility] Comment on above: Performed By: #### 2 4323-8 #### KALIN OSBORN ([id number]) [facility] ([facility]) [address] [place] [address] Creatinine [Mass/Vol] 0.66 mg/dL Normal 0.50-1.30 [facility] Comment on above: Performed By: #### 2 4323-8 #### KALIN OSBORN ([id number]) [facility] ([facility]) [address] [place] [address] 51756 Glomerular filtration rate/1.73 sq M.predicted 90 mL/min/1.73m*2 Normal >60 [facility] Comment on above: Result Comment: Calc ulations of estimated GFR are performed using the 2020 CKD-EPI Study Refit equation without the race variable for the IDMS-Traceable creatinine methods. https://jasn.asnjournals.org/content/early//ASN.74289 15414 Performed By: #### 2 4323-8 #### KALIN OSBORN ([id number]) [facility] ([facility]) [address] [place] [address] 88706 Glucose [Mass/Vol] 81 mg/dL Normal 74-99 [facility] Comment on above: Performed By: #### 2 4323-8 #### KALIN OSBORN ([id number]) [facility] ([facility]) [facility] [place] [address] Phosphate [Mass/Vol] 3.0 mg/dL Normal 2.5-4.9 [facility] Comment on above: Performed By: #### 2 4323-8 #### KALIN OSBORN ([id number]) [facility] ([facility]) [address] [place] [address] 38493 Potassium [Moles/Vol] 3.5 mmol/L Normal 3.5-5.3 [facility] Comment on above: Performed By: #### 2 4323-8 #### KALIN OSBORN ([id number]) [facility] ([facility]) [facility] [place] [address] Sodium [Moles/Vol] 139 mmol/L Normal 136-145 [facility] Comment on above: Performed By: #### 2 4323-8 #### KALIN OSBORN ([id number]) [facility] ([facility]) [address] [place] [address] 44557 Urea nitrogen [Mass/Vol] 18 mg/dL Normal 6-23 [facility] Comment on above: Performed By: #### 2 4323-8 #### KALIN OSBORN ([id number]) [facility] ([facility]) [address] [place] [address] 74592 TSH WITH REFLEX TO FREE T4 I F ABNORMALon 05-12-2025 TSH Qn 4.88 m[IU]/L High 0.44-3.98 [facility] Comment on above: Order Comment: TSH t esting is performed using different testing methodology at [facility] than at other [facility]. Direct result comparisons should only be made within the same method. Performed By: #### 2 4323-8 #### KALIN OSBORN ([id number]) [facility] ([facility]) [address] [place] [address] 20940 TSH with reflex to Free T4 i f abnormalon 05-12-2025 TSH Qn 4.88 m[IU]/L High [facility] TSH testing is performed using different testing methodology at [facility] than at other [facility]. Direct result comparisons should only be made within the same method. [facility] Thyroxine, Freeon 05-12-2025 Free T4 [Mass/Vol] 1.15 ng/dL 0.78 - 1. 48 ng/dL [facility] Thyroxine.freeon 05-12-2025 Free T4 [Mass/Vol] 1.15 ng/dL Normal 0.78-1.48 [facility] Comment on above: Order Comment: Thyro xine Free testing is performed using different testing methodology at [facility] than at other [facility]. Direct result comparisons should only be made within the same method. Performed By: #### 5 7021-8 #### KALIN OSBORN ([id number]) [facility] ([facility]) [address] [place] [address] 68616 Vitamin B12on 05-12-2025 Cobalamin (Vitamin B12) [Mass/Vol] 283 pg/mL 211 - 911 pg/mL [facility] Vitamin D 25-Hydroxy,Total ( for eval of Vitamin D levels)on 05-12-2025 25-hydroxyvitamin D3 [Mass/Vol] 18 ng/mL Low 30 - 100 ng/mL [facility] Basic metabolic 2000 panelon 05-11-2025 Anion gap [Moles/Vol] 9 mmol/L Low 10 - 2 0 mmol/L [facility] Calcium [Mass/Vol] 8.5 mg/dL Low 8.6 - 10. 6 mg/dL [facility] Chloride [Moles/Vol] 104 mmol/L 98 - 10 7 mmol/L [facility] CO2 [Moles/Vol] 30 mmol/L 21 - 32 mmol/L [facility] Creatinine [Mass/Vol] 0.89 mg/dL 0.50 - 1.30 mg/dL [facility] GFR/1.73 sq M.predicted among non-blacks MDRD (S/P/Bld) [Vol rate/Area] 82 mL/min/{1.73_m2} - PINF [facility] Comment on above: Calculations of leonides mated GFR are performed using the 2020 CKD-EPI Study Refit equation without the race variable for the IDMS-Traceable creatinine methods. https://jasn.asnjournals.org/content/early//ASN.58876 76141 Glucose [Mass/Vol] 124 mg/dL High 74 - 99 mg/dL [facility] Interpretation and review of laboratory results Abnormal [facility] Potassium [Moles/Vol] 3.6 mmol/L 3.5 - 5.3 mmol/L [facility] Sodium [Moles/Vol] 139 mmol/L 136 - 145 mmol/L [facility] Urea nitrogen [Mass/Vol] 21 mg/dL 6 - 23 mg/dL [facility] Anion gap [Moles/Vol] 9 mmol/L Low 10-20 [facility] Comment on above: Performed By: #### 2 4323-8 #### GAGNON IRENA (77242) [facility] ([facility]) [address] [place] [address] Calcium [Mass/Vol] 8.5 mg/dL Low 8.6-10.6 [facility] Comment on above: Performed By: #### 2 4323-8 #### KALIN OSBORN ([id number]) [facility] ([facility]) [address] [place] [address] 89713 Chloride [Moles/Vol] 104 mmol/L Normal 98-107 [facility] Comment on above: Performed By: #### 2 4323-8 #### KALIN OSBORN ([id number]) [facility] ([facility]) [address] [place] [address] 79564 CO2 [Moles/Vol] 30 mmol/L Normal 21-32 [facility] Comment on above: Performed By: #### 2 4323-8 #### KALIN OSBORN ([id number]) [facility] ([facility]) [address] [place] [address] 48616 Creatinine [Mass/Vol] 0.89 mg/dL Normal 0.50-1.30 [facility] Comment on above: Performed By: #### 2 4323-8 #### KALIN OSBORN (55131) [facility] ([facility]) [address] [place] [address] 49878 Glomerular filtration rate/1.73 sq M.predicted 82 mL/min/1.73m*2 Normal >60 [facility] Comment on above: Result Comment: Calc ulations of estimated GFR are performed using the 2020 CKD-EPI Study Refit equation without the race variable for the IDMS-Traceable creatinine methods. https://jasn.asnjournals.org/content/early//ASN.93532 60746 Performed By: #### 2 4323-8 #### KALIN OSBORN (47851) [facility] ([facility]) [address] [place] [address] 24536 Glucose [Mass/Vol] 124 mg/dL High 74-99 [facility] Comment on above: Performed By: #### 2 4323-8 #### KALIN OSBORN ([id number]) [facility] ([facility]) [address] [place] [address], [place] [address] Potassium [Moles/Vol] 3.6 mmol/L Normal 3.5-5.3 [facility] Comment on above: Performed By: #### 2 4323-8 #### KALIN OSBORN ([id number]) [facility] ([facility]) [address] [place] [address] Sodium [Moles/Vol] 139 mmol/L Normal 136-145 [facility] Comment on above: Performed By: #### 2 4323-8 #### KALIN OSBORN ([id number]) [facility] ([facility]) [address] [place] [address] 42807 Urea nitrogen [Mass/Vol] 21 mg/dL Normal 6-23 [facility] Comment on above: Performed By: #### 2 4323-8 #### KALIN OSBORN ([id number]) [facility] ([facility]) [address] [place] [address] 83716 CBC panel Auto (Bld)on 05-11 Erythrocyte distribution width (RBC) [Ratio] 12.6 % 11.5 - 14.5 % [facility] Hematocrit (Bld) [Volume fraction] 32.9 % Low 41.0 - 52.0 % [facility] Hemoglobin (Bld) [Mass/Vol] 11.4 g/dL Low 13.5 - 17.5 g/dL [facility] Interpretation and review of laboratory results Abnormal [facility] MCH (RBC) [Entitic mass] 33.5 pg 26.0 - 34.0 pg [facility] MCHC (RBC) [Mass/Vol] 34.7 g/dL 32.0 - 36.0 g/dL [facility] MCV (RBC) [Entitic vol] 97 fL 80 - 100 fL [facility] Nucleated RBC/100 WBC (Bld) [Ratio] 0.0 % [facility] Platelets (Bld) [#/Vol] 204 10*3/uL [facility] RBC (Bld) [#/Vol] 3.40 10*6/uL Low [facility] WBC (Bld) [#/Vol] 10.7 10*3/uL [facility] Erythrocyte distribution width (RBC) [Ratio] 12.6 % Normal 11.5-14.5 [facility] Comment on above: Performed By: #### 2 4323-8 #### KALIN OSBORN ([id number]) [facility] ([facility]) [address] [place] [address] 53970 Hematocrit (Bld) [Volume fraction] 32.9 % Low 41.0-52.0 [facility] Comment on above: Performed By: #### 2 4323-8 #### KALIN OSBORN ([id number]) [facility] ([facility]) [address] [place] [address] 96325 Hemoglobin (Bld) [Mass/Vol] 11.4 g/dL Low 13.5-17.5 [facility] Comment on above: Performed By: #### 2 4323-8 #### KALIN OSBORN ([id number]) [facility] ([facility]) [address] [place] [address] 40607 MCH (RBC) [Entitic mass] 33.5 pg Normal 26.0-34.0 [facility] Comment on above: Performed By: #### 2 4323-8 #### KALIN OSBORN (47385) [facility] ([facility]) [address] [place] [address] 50864 MCHC (RBC) [Mass/Vol] 34.7 g/dL Normal 32.0-36.0 [facility] Comment on above: Performed By: #### 2 4323-8 #### KALIN OSBORN ([id number]) [facility] ([facility]) [address] [place] [address] 98481 MCV (RBC) [Entitic vol] 97 fL Normal 80-100 [facility] Comment on above: Performed By: #### 2 4323-8 #### KALIN OSBORN ([id number]) [facility] ([facility]) [address] [place] [address] 52531 Nucleated RBC/100 WBC (Bld) [Ratio] 0.0 /100 WBCs Normal 0.0-0.0 [facility] Comment on above: Performed By: #### 2 4323-8 #### KALIN OSBORN ([id number]) [facility] ([facility]) [address] [place] [address] Platelets (Bld) [#/Vol] 204 x10*3/uL Normal 150-450 [facility] Comment on above: Performed By: #### 2 4323-8 #### KALIN OSBORN ([id number]) [facility] ([facility]) [address] [place] [address] RBC (Bld) [#/Vol] 3.40 x10*6/uL Low 4.50-5.90 [facility] Comment on above: Performed By: #### 2 4323-8 #### KALIN OSBORN ([id number]) [facility] ([facility]) [address] [place] [address] WBC (Bld) [#/Vol] 10.7 x10*3/uL Normal 4.4-11.3 [facility] Comment on above: Performed By: #### 2 4323-8 #### KALIN OSBORN ([id number]) [facility] ([facility]) [address] [place] [address] CT Head WO contraston 2024 Redemonstration of [...] MD (PGY-3). This study was interpreted at [facility], [place], [place]. MACRO: None Signed by: Wanda Montalvo 05/11/2025 12:03 AM Dictation workstation: [id number] Interpreted By: Wanda Montalvo, and Spenser Jenkins STUDY: CT HEAD WO IV CONTRAST; 05/10/2025 11:27 pm INDICATION: Signs/Symptoms:Trauma, intracranial bleeding. Stability scan. COMPARISON: CT head without IV contrast 05/10/2025 3:03 p.m.. ACCESSION NUMBER(S): [id number] ORDERING CLINICIAN: CARRI GREER TECHNIQUE: Noncontrast axial [...] IV contrast 05/10/2025 3:03 p.m.. ACCESSION NUMBER(S): [id number] ORDERING CLINICIAN: CARRI GREER TECHNIQUE: Noncontrast axial [...] MD (PGY-3). This study was interpreted at [place], [place]. MACRO: None Signed by: Wanda Montalvo 05/11/2025 12:03 AM Dictation workstation: [id number] [facility] Work Phone: CT Head WO contrastOrdered B y: Wanda Montalvo on 05-11-2025 [facility] Work Phone: ECG 12 leadOrdered By: Lew Garcia on 05-11-2025 Atrial Rate 72 BPM [facility] Work Phone: P Stella 31 degrees [facility] Work Phone: P Offset 178 ms [facility] Work Phone: P Onset 115 ms [facility] Work Phone: AZ Interval 190 ms [facility] Work Phone: Q Onset 210 ms [facility] Work Phone: QRS Count 12 beats [facility] Work Phone: QRS Duration 104 ms [facility] Work Phone: QT Interval 394 ms [facility] [facility] Work Phone: QTC Calculation(Bazett) [facility] Work Phone: QTC Fredericia [facility] Work Phone: R Stella -15 degrees [facility] Work Phone: T Stella 44 degrees [facility] Work Phone: T Offset 407 ms [facility] Work Phone: Ventricular Rate 72 BPM [facility]: [facility] Work Phone: ECG 12 leadon 05-11-2025 Normal sinus rhythm Normal ECG When compared with ECG of 10-MAY-2025 13:54, No significant change was found See ED provider note for full interpretation and clinical correlation Confirmed by Yolanda Garcia ([id number]) on 05/11/2025 3:47:31 AM Yolanda Waite PA -C - 05/11/2025 Normal sinus rhythm Normal ECG When compared with ECG of 10-MAY-2025 13:54, No significant change was found See ED provider note for full interpretation and clinical correlation Confirmed by Yolanda Garcia ([id number]) on 05/11/2025 3:47:31 AM [facility] Work Phone: ECG 12-LEADon 05-11-2025 ECG 12-LEAD Ventricular Rate 72 Atrial Rate 72 P-R Interval 190 QRS Duration 104 Q-T Interval 394 QTC Calculation(Bazett) 431 P Stella 31 R Stella -15 T Stella 44 QRS Count 12 Q Onset 210 P Onset 115 P Offset 178 T Offset 407 QTC Fredericia 418 Diagnosis Normal sinus rhythm Normal ECG When compared with ECG of 10-MAY-2025 13:54, No significant change was found See ED provider note for full interpretation and clinical correlation Confirmed by Yolanda Garcia ([id number]) on 05/11/2025 3:47:31 AM Normal [facility] Magnesiumon 05-11-2025 Magnesium [Mass/Vol] 1.86 mg/dL 1.60 - 2.40 mg/dL [facility] Magnesium [Mass/Vol] 1.86 mg/dL Normal 1.60-2.40 [facility] Comment on above: Performed By: #### 2 4323-8 #### GAGNON IRENA ([id number]) [facility] ([facility]) [address] [place] [address] Magnesium [Mass/Vol]on 05-11 Interpretation and review of laboratory results Normal [facility] Natriuretic peptide B [Mass/ Vol]on 05-11-2025 Interpretation and review of laboratory results Normal [facility] Natriuretic peptide B (Bld) [Mass/Vol] 56 pg/mL 0 - 99 pg/mL [facility] <100 pg/mL - Heart failure unlikely [...] contact their local laboratory for further information. [facility] Natriuretic peptide B (Bld) [Mass/Vol] 56 pg/mL Normal 0-99 [facility] Comment on above: Order Comment: <100 pg/mL - Heart failure ofgmpwen853-590 pg/mL - Intermediate probability of acute heart [...] By: #### 2 4323-8 #### GAGNON IRENA ([id number]) [facility] ([facility]) [address] [place] [address] XR CHEST 1 VIEWon 05-11-2025 XR CHEST 1 VIEW STUDY: Chest Radiograph; 05/11/2025 1:13AM INDICATION: Evaluation for surgery trauma. COMPARISON: 09/23/2022 XR chest ACCESSION NUMBER(S): [id number] ORDERING CLINICIAN: SANTIAGO MENENDEZ TECHNIQUE: Frontal chest was obtained at 01:12 hours. FINDINGS: CARDIOMEDIASTINAL SILHOUETTE: Cardiomediastinal silhouette is normal in size and configuration. Mural calcifications through the aortic arch. LUNGS: No regions of consolidation. No regions of atelectasis. ABDOMEN: No remarkable upper abdominal findings. BONES: No acute osseous changes. IMPRESSION: No acute pleural or parenchymal disease.. Signed by Gracie Baltazar MD [facility] XR Chest Single viewon 05-11 No acute pleural or parenchymal disease.. Signed by Gracie Baltazar MD TELERADIOLOGY STUDY: Chest Radiograph; 05/11/2025 1:13AM INDICATION: Evaluation for surgery trauma. COMPARISON: 09/23/2022 XR chest ACCESSION NUMBER(S): [id number] ORDERING CLINICIAN: SANTIAGO MENENDEZ TECHNIQUE: Frontal chest [...] trauma. COMPARISON: 09/23/2022 XR chest ACCESSION NUMBER(S): [id number] ORDERING CLINICIAN: SANTIAGO MENENDEZ TECHNIQUE: Frontal chest was obtained at 01:12 hours. FINDINGS: CARDIOMEDIASTINAL SILHOUETTE: Cardiomediastinal silhouette is normal in size and configuration. Mural calcifications through the aortic arch. LUNGS: No regions of consolidation. No regions of atelectasis. ABDOMEN: No remarkable upper abdominal findings. BONES: No acute osseous changes. IMPRESSION: No acute pleural or parenchymal disease.. Signed by Gracie Baltazar MD [facility] Work Phone: Radiology Study observation (narrative) [facility] Work Phone: XR Chest Single viewOrdered By: Gracie Baltazar on 05-11-2025 [facility] Work Phone: XR PELVIS WITH INLET OUTLET JUDET VIEWSon 05-11-2025 XR PELVIS WITH INLET OUTLET JUDET VIEWS Interpreted By: Wanda Montalvo, Jake Jenkins STUDY: XR PELVIS WITH INLET OUTLET JUDET VIEWS; ; 05/11/2025 4:18 am INDICATION: Signs/Symptoms:eval. COMPARISON: CT chest abdomen pelvis 05/10/2025. ACCESSION NUMBER(S): [id number] ORDERING CLINICIAN: LEONARDO BERGER FINDINGS: Five view [...] MD (PGY-3). This study was interpreted at [facility], [place], [place]. MACRO: None Signed by: Wanda Montalvo 05/11/2025 5:01 AM Dictation workstation: [id number] Normal [facility] XR Pelvis 3 Viewson 05-11-20 Acute pubic rami, acetabular, and right sacral ala fractures are better appreciated on comparison CT chest abdomen pelvis. Please refer to separate report of dedicated CT for detail. Postsurgical and degenerative changes as noted above. I personally reviewed the images/study and I agree with the findings as stated by Gregory Dueñas MD (PGY-3). This study was interpreted at [place], [place]. MACRO: None Signed by: Wanda Montalvo 05/11/2025 5:01 AM Dictation workstation: [id number] Interpreted By: Wanda Montalvo and Omar Mahmoud STUDY: XR PELVIS WITH INLET OUTLET JUDET VIEWS; ; 05/11/2025 4:18 am INDICATION: Signs/Symptoms:eval. COMPARISON: CT chest abdomen pelvis 05/10/2025. ACCESSION NUMBER(S): [id number] ORDERING CLINICIAN: LEONARDO BERGER FINDINGS: Five view [...] CT chest abdomen pelvis 05/10/2025. ACCESSION NUMBER(S): [id number] ORDERING CLINICIAN: LEONARDO BERGER FINDINGS: Five view [...] MD (PGY-3). This study was interpreted at [place], [place]. MACRO: None Signed by: Wanda Montalvo 05/11/2025 5:01 AM Dictation workstation: [id number] [facility] Work Phone: [facility] Work Phone: Radiology Study observation (narrative) [facility] Work Phone: Basic metabolic 2000 panelon 05-10-2025 Anion gap [Moles/Vol] 10 mmol/L 10 - 2 0 mmol/L [facility] Calcium [Mass/Vol] 8.7 mg/dL 8.6 - 10. 3 mg/dL [facility] Chloride [Moles/Vol] 106 mmol/L 98 - 10 7 mmol/L [facility] CO2 [Moles/Vol] 26 mmol/L 21 - 32 mmol/L [facility] Creatinine [Mass/Vol] 0.77 mg/dL 0.50 - 1.30 mg/dL [facility] GFR/1.73 sq M.predicted among non-blacks MDRD (S/P/Bld) [Vol rate/Area] 86 mL/min/{1.73_m2} - PINF [facility] Comment on above: Calculations of leonides mated GFR are performed using the 2020 CKD-EPI Study Refit equation without the race variable for the IDMS-Traceable creatinine methods. https://jasn.asnjournals.org/content//ASN. 53093 Glucose [Mass/Vol] 95 mg/dL 74 - 99 mg/dL [facility] Interpretation and review of laboratory results Abnormal [facility] Potassium [Moles/Vol] 3.9 mmol/L 3.5 - 5.3 mmol/L [facility] Sodium [Moles/Vol] 138 mmol/L 136 - 145 mmol/L [facility] Urea nitrogen [Mass/Vol] 26 mg/dL High 6 - 23 mg/dL [facility] Anion gap [Moles/Vol] 10 mmol/L Normal 10-20 [facility] Comment on above: Performed By: #### 2 4321-2 #### KALIN OSBORN ([id number]) [facility] ([facility]) [address] [place] [address] 23227 Calcium [Mass/Vol] 8.7 mg/dL Normal 8.6-10.3 [facility] Comment on above: Performed By: #### 2 4321-2 #### KALIN OSBORN ([id number]) [facility] ([facility]) [facility] [place] [address] Chloride [Moles/Vol] 106 mmol/L Normal 98-107 [facility] Comment on above: Performed By: #### 2 4321-2 #### KALIN OSBORN ([id number]) [facility] ([facility]) [facility] [place] [address] CO2 [Moles/Vol] 26 mmol/L Normal 21-32 [facility] Comment on above: Performed By: #### 2 4321-2 #### KALIN OSBORN ([id number]) [facility] ([facility]) [address] [place] [address] 51857 Creatinine [Mass/Vol] 0.77 mg/dL Normal 0.50-1.30 [facility] Comment on above: Performed By: #### 2 4321-2 #### KALIN OSBORN ([id number]) [facility] ([facility]) [address] [place] [address] 45791 Glomerular filtration rate/1.73 sq M.predicted 86 mL/min/1.73m*2 Normal >60 [facility] Comment on above: Result Comment: Calc ulations of estimated GFR are performed using the 2020 CKD-EPI Study Refit equation without the race variable for the IDMS-Traceable creatinine methods. https://jasn.asnjournals.org/content/early/ASN.30640 59319 Performed By: #### 2 4321-2 #### KALIN OSBORN ([id number]) [facility] ([facility]) [facility] [place] [address] Glucose [Mass/Vol] 95 mg/dL Normal 74-99 [facility] Comment on above: Performed By: #### 2 4321-2 #### KALIN OSBORN ([id number]) [facility] ([facility]) [address] [place] [address] 77538 Potassium [Moles/Vol] 3.9 mmol/L Normal 3.5-5.3 [facility] Comment on above: Performed By: #### 2 4321-2 #### KALIN OSBORN ([id number]) [facility] ([facility]) [address] [place] [address] 63659 Sodium [Moles/Vol] 138 mmol/L Normal 136-145 [facility] Comment on above: Performed By: #### 2 4321-2 #### KALIN OSBORN ([id number]) [facility] ([facility]) [address] [place] [address] 16712 Urea nitrogen [Mass/Vol] 26 mg/dL High 6-23 [facility] Comment on above: Performed By: #### 2 4321-2 #### KALIN OSBORN ([id number]) [facility] ([facility]) [address] [place] [address] 40343 Blood type and Indirect anti body screen panel (Bld)on 05-10-2025 ABO group Nom (Bld) A [facility] Blood group antibody screen Ql Negative [facility] D Ag Ql (Bld) Positive [facility] ABO group Nom (Bld) A Normal [facility] Comment on above: Performed By: #### 3 4532-2 ####KALIN OSBORN ([id number])[facility] ([facility])[address] [place] [address] Blood group antibody screen Ql Negative [facility] Comment on above: Performed By: #### 3 4532-2 ####KALIN OSBORN ([id number])[facility] ([facility])[address] [place] [address] D Ag Ql (Bld) Positive [facility] Comment on above: Performed By: #### 3 4532-2 ####KALIN OSBORN ([id number])[facility]LOOD [facility] ([facility])[address] [place] [address] CBC W Auto Differential pane l (Bld)on 05-10-2025 Basophils (Bld) [#/Vol] 0.04 10*3/uL [facility] Basophils/100 WBC (Bld) 0.4 % 0.0 - 2.0 % [facility] Eosinophils (Bld) [#/Vol] 0.11 10*3/uL [facility] Eosinophils/100 WBC (Bld) 1.0 % 0.0 - 6.0 % [facility] Erythrocyte distribution width (RBC) [Ratio] 12.5 % 11.5 - 14.5 % [facility] Hematocrit (Bld) [Volume fraction] 36.3 % Low 41.0 - 52.0 % [facility] Hemoglobin (Bld) [Mass/Vol] 12.3 g/dL Low 13.5 - 17.5 g/dL [facility] Immature granulocytes (Bld) [#/Vol] 0.15 10*3/uL [facility] Immature granulocytes/100 WBC (Bld) 1.4 % High 0.0 - 0.9 % [facility] Comment on above: Immature Granulocyte Count (IG) includes promyelocytes, myelocytes and metamyelocytes but does not include bands. Percent differential counts (%) should be interpreted in the context of the absolute cell counts (cells/UL). Interpretation and review of laboratory results Abnormal [facility] Lymphocytes (Bld) [#/Vol] 1.00 10*3/uL [facility] Lymphocytes/100 WBC (Bld) 9.4 % 13.0 - 44.0 % [facility] MCH (RBC) [Entitic mass] 33.6 pg 26.0 - 34.0 pg [facility] MCHC (RBC) [Mass/Vol] 33.9 g/dL 32.0 - 36.0 g/dL [facility] MCV (RBC) [Entitic vol] 99 fL 80 - 100 fL [facility] Monocytes (Bld) [#/Vol] 1.04 10*3/uL High [facility] Monocytes/100 WBC (Bld) 9.7 % 2.0 - 10.0 % [facility] Neutrophils (Bld) [#/Vol] 8.34 10*3/uL High [facility] Comment on above: Percent differential counts (%) should be interpreted in the context of the absolute cell counts (cells/uL). Neutrophils/100 WBC (Bld) 78.1 % 40.0 - 80.0 % [facility] Nucleated RBC/100 WBC (Bld) [Ratio] 0.0 % [facility] Platelets (Bld) [#/Vol] 213 10*3/uL [facility] RBC (Bld) [#/Vol] 3.66 10*6/uL Low [facility] WBC (Bld) [#/Vol] 10.7 10*3/uL [facility] Basophils (Bld) [#/Vol] 0.04 x10*3/uL Normal 0.00-0.10 [facility] Comment on above: Performed By: #### 5 7021-8 #### KALIN OSBORN ([id number]) [facility] ([facility]) [address] [place] [address] Basophils/100 WBC (Bld) 0.4 % Normal 0.0-2.0 [facility] Comment on above: Performed By: #### 5 7021-8 #### KALIN OSBORN ([id number]) [facility] ([facility]) [address] [place] [address] Eosinophils (Bld) [#/Vol] 0.11 x10*3/uL Normal 0.00-0.40 [facility] Comment on above: Performed By: #### 5 7021-8 #### KALIN OSBORN ([id number]) [facility] ([facility]) [address] [place] [address] 84003 Eosinophils/100 WBC (Bld) 1.0 % Normal 0.0-6.0 [facility] Comment on above: Performed By: #### 5 7021-8 #### KALIN OSBORN ([id number]) [facility] ([facility]) [address] [place] [address] 41189 Erythrocyte distribution width (RBC) [Ratio] 12.5 % Normal 11.5-14.5 [facility] Comment on above: Performed By: #### 5 7021-8 #### KALIN OSOBRN ([id number]) [facility] ([facility]) [address] [place] [address] 91634 Hematocrit (Bld) [Volume fraction] 36.3 % Low 41.0-52.0 [facility] Comment on above: Performed By: #### 5 7021-8 #### KALIN OSBORN ([id number]) [facility] ([facility]) [address] [place] [address] 39391 Hemoglobin (Bld) [Mass/Vol] 12.3 g/dL Low 13.5-17.5 [facility] Comment on above: Performed By: #### 5 7021-8 #### KALIN OSBORN ([id number]) [facility] ([facility]) [address] [place] [address] 24491 Immature granulocytes (Bld) [#/Vol] 0.15 x10*3/uL Normal 0.00-0.50 [facility] Comment on above: Performed By: #### 5 7021-8 #### KALIN OSBORN ([id number]) [facility] ([facility]) [address] [place] [address] 81403 Immature granulocytes/100 WBC (Bld) 1.4 % High 0.0-0.9 [facility] Comment on above: Result Comment: Steph ture Granulocyte Count (IG) includes promyelocytes, myelocytes and metamyelocytes but does not include bands. Percent differential counts (%) should be interpreted in the context of the absolute cell counts (cells/UL). Performed By: #### 5 7021-8 #### KALIN OSBORN ([id number]) [facility] ([facility]) [address] [place] [address] 66651 Lymphocytes (Bld) [#/Vol] 1.00 x10*3/uL Normal 0.80-3.00 [facility] Comment on above: Performed By: #### 5 7021-8 #### KALIN OSBORN ([id number]) [facility] ([facility]) [address] [place] [address] 67031 Lymphocytes/100 WBC (Bld) 9.4 % Normal 13.0-44.0 [facility] Comment on above: Performed By: #### 5 7021-8 #### KALIN OSBORN ([id number]) [facility] ([facility]) [address] [place] [address] 95697 MCH (RBC) [Entitic mass] 33.6 pg Normal 26.0-34.0 [facility] Comment on above: Performed By: #### 5 7021-8 #### KALIN OSBORN ([id number]) [facility] ([facility]) [address] [place] [address] 06838 MCHC (RBC) [Mass/Vol] 33.9 g/dL Normal 32.0-36.0 [facility] Comment on above: Performed By: #### 5 7021-8 #### KALIN OSBORN ([id number]) [facility] ([facility]) [address] [place] [address] 73200 MCV (RBC) [Entitic vol] 99 fL Normal 80-100 [facility] Comment on above: Performed By: #### 5 7021-8 #### KALIN OSBORN ([id number]) [facility] ([facility]) [address] [place] [address] 63489 Monocytes (Bld) [#/Vol] 1.04 x10*3/uL High 0.05-0.80 [facility] Comment on above: Performed By: #### 5 7021-8 #### KALIN OSBORN ([id number]) [facility] ([facility]) [address] [place] [address] 71412 Monocytes/100 WBC (Bld) 9.7 % Normal 2.0-10.0 [facility] Comment on above: Performed By: #### 5 7021-8 #### KALIN OSBORN ([id number]) [facility] ([facility]) [address] [place] [address] 11626 Neutrophils (Bld) [#/Vol] 8.34 x10*3/uL High 1.60-5.50 [facility] Comment on above: Result Comment: Perc ent differential counts (%) should be interpreted in the context of the absolute cell counts (cells/uL). Performed By: #### 5 7021-8 #### KALIN OSBORN ([id number]) [facility] ([facility]) [address] [place] [address] 04077 Neutrophils/100 WBC (Bld) 78.1 % Normal 40.0-80.0 [facility] Comment on above: Performed By: #### 5 7021-8 #### KALIN OSBORN ([id number]) [facility] ([facility]) [address] [place] [address] 54515 Nucleated RBC/100 WBC (Bld) [Ratio] 0.0 /100 WBCs Normal 0.0-0.0 [facility] Comment on above: Performed By: #### 5 7021-8 #### KALIN OSBORN ([id number]) [facility] ([facility]) [address] [place] [address] 96320 Platelets (Bld) [#/Vol] 213 x10*3/uL Normal 150-450 [facility] Comment on above: Performed By: #### 5 7021-8 #### KALIN OSBORN ([id number]) [facility] ([facility]) [address] [place] [address] 20188 RBC (Bld) [#/Vol] 3.66 x10*6/uL Low 4.50-5.90 [facility] Comment on above: Performed By: #### 5 7021-8 #### KALIN IRENA ([id number]) [facility] ([facility]) [facility] [place] [address] WBC (Bld) [#/Vol] 10.7 x10*3/uL Normal 4.4-11.3 [facility] Comment on above: Performed By: #### 5 7021-8 #### KALIN IRENA ([id number]) [facility] ([facility]) [facility] [place] [address] CT 3D RECONSTRUCTIONon 05-10 CT 3D RECONSTRUCTION Interpreted By: Michelle Zambrano, STUDY: CT HEAD WO IV CONTRAST; CT FACIAL BONES WO IV CONTRAST; CT 3D RECONSTRUCTION; CT CERVICAL SPINE WO IV CONTRAST; 05/10/2025 3:01 pm; 05/10/2025 3:08 pm INDICATION: Signs/Symptoms:fall. COMPARISON: Head CT 11/15/2023 ACCESSION NUMBER(S): [id number]; [id number]; [id number]; [id number] ORDERING CLINICIAN: SANTIAGO MENENDEZ TECHNIQUE: Axial noncontrast [...] care surgeons. J Trauma Acute Care Surg. 2014;76:770j603. FACIAL BONES: No acute facial bone fracture. [...] Michelle Zambrano 05/10/2025 4:33 PM Dictation workstation: [id number] [facility] CT CERVICAL SPINE WO IV CONT [facility] 05-10-2025 CT CERVICAL SPINE WO IV CONTRAST Interpreted By: Michelle Zambrano, STUDY: CT HEAD WO IV CONTRAST; CT FACIAL BONES WO IV CONTRAST; CT 3D RECONSTRUCTION; CT CERVICAL SPINE WO IV CONTRAST; 05/10/2025 3:01 pm; 05/10/2025 3:08 pm INDICATION: Signs/Symptoms:fall. COMPARISON: Head CT 11/15/2023 ACCESSION NUMBER(S): [id number]; [id number]; [id number]; [id number] ORDERING CLINICIAN: SANTIAGO MENENDEZ TECHNIQUE: Axial noncontrast [...] care surgeons. J Trauma Acute Care Surg. 2014;76:401e743. FACIAL BONES: No acute facial bone fracture. [...] Michelle Zambrano 05/10/2025 4:33 PM Dictation workstation: [id number] [facility] CT CHEST ABDOMEN PELVIS W IV CONTRASTon 05-10-2025 CT CHEST ABDOMEN PELVIS W IV CONTRAST Interpreted By: Michelle Zambrano, STUDY: CT CHEST ABDOMEN PELVIS W IV CONTRAST; 05/10/2025 3:05 pm INDICATION: Signs/Symptoms:fall. COMPARISON: None. ACCESSION NUMBER(S): [id number] ORDERING CLINICIAN: SANTIAGO MENENDEZ TECHNIQUE: Axial CT [...] Michelle Zambrano 05/10/2025 4:52 PM Dictation workstation: [id number] [facility] CT Chest and Abdomen and Pel vis [...] Michelle Zambrano 05/10/2025 4:52 PM Dictation workstation: [id number] Interpreted By: Michelle Zambrano, STUDY: CT CHEST ABDOMEN PELVIS W IV CONTRAST; 05/10/2025 3:05 pm INDICATION: Signs/Symptoms:fall. COMPARISON: None. ACCESSION NUMBER(S): [id number] ORDERING CLINICIAN: SANTIAGO MENENDEZ TECHNIQUE: Axial CT [...] pm INDICATION: Signs/Symptoms:fall. COMPARISON: None. ACCESSION NUMBER(S): [id number] ORDERING CLINICIAN: SANTIAGO MENENDEZ TECHNIQUE: Axial CT [...] Michelle Zambrano 05/10/2025 4:52 PM Dictation workstation: [id number] [facility] Work Phone: [facility] Work Phone: Radiology Study observation (narrative) [facility] Work Phone: CT FACIAL BONES WO IV CONTRA STon 05-10-2025 CT FACIAL BONES WO IV CONTRAST Interpreted By: Michelle Zambrano, STUDY: CT HEAD WO IV CONTRAST; CT FACIAL BONES WO IV CONTRAST; CT 3D RECONSTRUCTION; CT CERVICAL SPINE WO IV CONTRAST; 05/10/2025 3:01 pm; 05/10/2025 3:08 pm INDICATION: Signs/Symptoms:fall. COMPARISON: Head CT 11/15/2023 ACCESSION NUMBER(S): [id number]; [id number]; [id number]; [id number] ORDERING CLINICIAN: SANTIAGO MENENDEZ TECHNIQUE: Axial noncontrast [...] care surgeons. J Trauma Acute Care Surg. 2014;76:476u249. FACIAL BONES: No acute facial bone fracture. [...] Michelle Zambrano 05/10/2025 4:33 PM Dictation workstation: [id number] [facility] CT HEAD WO IV CONTRASTon CT HEAD WO IV CONTRAST Interpreted By: Wanda Montalvo and Omar Mahmoud STUDY: CT HEAD WO IV CONTRAST; 05/10/2025 11:27 pm INDICATION: Signs/Symptoms:Trauma, intracranial bleeding. Stability scan. COMPARISON: CT head without IV contrast 05/10/2025 3:03 p.m.. ACCESSION NUMBER(S): [id number] ORDERING CLINICIAN: CARRI GREER TECHNIQUE: Noncontrast axial [...] MD (PGY-3). This study was interpreted at [facility], [place], [place]. MACRO: None Signed by: Wanda Montalvo 05/11/2025 12:03 AM Dictation workstation: [id number] Normal [facility] CT HEAD WO IV CONTRAST Interpreted By: Michelle Zambrano, STUDY: CT HEAD WO IV CONTRAST; CT FACIAL BONES WO IV CONTRAST; CT 3D RECONSTRUCTION; CT CERVICAL SPINE WO IV CONTRAST; 05/10/2025 3:01 pm; 05/10/2025 3:08 pm INDICATION: Signs/Symptoms:fall. COMPARISON: Head CT 11/15/2023 ACCESSION NUMBER(S): [id number]; [id number]; [id number]; [id number] ORDERING CLINICIAN: SANTIAGO MENENDEZ TECHNIQUE: Axial noncontrast [...] care surgeons. J Trauma Acute Care Surg. 2014;76:229k818. FACIAL BONES: No acute facial bone fracture. [...] Michelle Zambrano 05/10/2025 4:33 PM Dictation workstation: [id number] [facility] CT Head WO contraston 2024 Radiology Study observation (narrative) [facility] Work Phone: CT LUMBAR SPINE RETROSPECTIV E RECONSTRUCTION PROTOCOLon 05-10-2025 CT LUMBAR SPINE RETROSPECTIVE RECONSTRUCTION PROTOCOL STUDY: CT Thoracic Spine, and Lumbar Spine without IV Contrast; 05/10/2025 at 10:38 PM. INDICATION: Trauma. COMPARISON: CT CAP 05/10/2025. ACCESSION NUMBER(S): [id number], [id number] ORDERING CLINICIAN: ELIAN ROTHMAN TECHNIQUE: CT of [...] clinically warranted, consider MRI. Signed by Joey aPz MD [facility] CT THORACIC SPINE RETROSPECT DERRELL RECONSTRUCTION PROTOCOLon 05-10-2025 CT THORACIC SPINE RETROSPECTIVE RECONSTRUCTION PROTOCOL STUDY: CT Thoracic Spine, and Lumbar Spine without IV Contrast; 05/10/2025 at 10:38 PM. INDICATION: Trauma. COMPARISON: CT CAP 05/10/2025. ACCESSION NUMBER(S): [id number], [id number] ORDERING CLINICIAN: ELIAN ROTHMAN TECHNIQUE: CT of [...] consider MRI. Signed by Joey Paz MD [facility] Coagulation surface inducedo n 05-10-2025 aPTT Coag (PPP) [Time] 29 s Normal 26-36 [facility] Comment on above: Order Comment: The A PTT is no longer used for monitoring Unfractionated Heparin Therapy. For monitoring Heparin Therapy, use the Heparin Assay. Performed By: #### 1 4979-9 #### KALIN OSBORN ([id number]) [facility] ([facility]) [address] [place] [address] Coagulation tissue factor in ducedon 05-10-2025 PT Coag (PPP) [Time] 11.8 s Normal 9.8-12.4 [facility] Comment on above: Performed By: #### 5 902-2 #### KALIN OSBORN ([id number]) [facility] ([facility]) [address] [place] [address] ECG 12-LEADon 05-10-2025 ECG 12-LEAD Ventricular Rate 80 Atrial Rate 80 P-R Interval 176 QRS Duration 98 Q-T Interval 376 QTC Calculation(Bazett) 433 P Stella 56 R Stella -21 T Stella 55 QRS Count 14 Q Onset 210 P Onset 122 P Offset 180 T Offset 398 QTC Fredericia 414 Diagnosis Normal sinus rhythm Normal ECG When compared with ECG of 07-DEC-2023 09:54, Premature atrial complexes are no longer Present See ED provider note for full interpretation and clinical correlation Confirmed by Brandee Hawkins ([id number]) on 05/11/2025 1:16:43 PM Normal [facility] Laceration Repairon 05-10-20 Brandee Hawkins PA-C 05/10/2025 [...] No treatment, delayed treatment, observation and referral [place] protocol: Procedure explained and questions answered to [...] Procedure completion: Tolerated well, no immediate complications [facility] Work Phone: [facility] Work Phone: No Panel Informationon 05-10 [...] Michelle Zambrano 05/10/2025 4:33 PM Dictation workstation: [id number] [facility] Interpreted By: Michelle Zambrano, STUDY: CT HEAD WO IV CONTRAST; CT FACIAL BONES WO IV CONTRAST; CT 3D RECONSTRUCTION; CT CERVICAL SPINE WO IV CONTRAST; 05/10/2025 3:01 pm; 05/10/2025 3:08 pm INDICATION: Signs/Symptoms:fall. COMPARISON: Head CT 11/15/2023 ACCESSION NUMBER(S): [id number]; [id number]; [id number]; [id number] ORDERING CLINICIAN: SANTIAGO MENENDEZ TECHNIQUE: Axial noncontrast [...] care surgeons. J Trauma Acute Care Surg. 2014;76:921g903. FACIAL BONES: No acute facial bone fracture. [...] Signs/Symptoms:fall. COMPARISON: Head CT 11/15/2023 ACCESSION NUMBER(S): [id number]; [id number]; [id number]; [id number] ORDERING CLINICIAN: SANTIAGO MENENDEZ TECHNIQUE: Axial noncontrast [...] care surgeons. J Trauma Acute Care Surg. 2014;76:935n109. FACIAL BONES: No acute facial bone fracture. [...] Michelle Zambrano 05/10/2025 4:33 PM Dictation workstation: [id number] [facility] Work Phone: Interpretation and review of laboratory results Normal [facility] Radiology Study observation (narrative) [facility] Work Phone: Radiology Study observation (narrative) [facility] Work Phone: No Panel InformationOrdered By: Michelle Zambrano on 05-10-2025 [facility] Work Phone: PT Coag (PPP) [Time]on 05-10 INR Coag (PPP) [Relative time] 1.1 {INR} 0.9 - 1.1 [facility] INR Coag (PPP) [Relative time] 1.1 Normal 0.9-1.1 [facility] Comment on above: Performed By: #### 5 902-2 #### KALIN OSBORN ([id number]) [facility] ([facility]) [address] [id number] Protime-INRon 05-10-2025 PT Coag (PPP) [Time] 11.8 s [facility] Tropinin I.cardiac panel Hig h sensitivity methodon 05-10-2025 Interpretation and review of laboratory results Normal [facility] Less than 99th percentile of normal [...] performed using a different testing methodology at [facility] than at other [facility]. Direct result comparisons should only be made within the same method. [facility] Interpretation and review of laboratory results Normal [facility] Less than 99th percentile of normal [...] performed using a different testing methodology at [facility] than at other [facility]. Direct result comparisons should only be made within the same method. [facility] Troponin I, High Sensitivity , Initialon 05-10-2025 Tropinin I.cardiac panel High sensitivity method 7 ng/L 0 - 20 ng/L [facility] Troponin I.cardiac panelon 0 05-10-2025 Tropinin I.cardiac panel High sensitivity method 6 ng/L Normal 0-20 [facility] Comment on above: Order Comment: [...] performed using a different testing methodology at [facility] than at other [facility]. Direct result comparisons should only be made within the same method. Performed By: #### 8 9577-1 #### KALIN OSBORN ([id number]) [facility] ([facility]) [facility] [place] [address] Tropinin I.cardiac panel High sensitivity method 7 ng/L Normal 0-20 [facility] Comment on above: Order Comment: [...] performed using a different testing methodology at [facility] than at other [facility]. Direct result comparisons should only be made within the same method. Performed By: #### 8 9577-1 #### KALIN OSBORN ([id number]) [facility] ([facility]) [address] [place] [address] Troponin, High Sensitivity, 1 Houron 05-10-2025 Tropinin I.cardiac panel High sensitivity method 6 ng/L 0 - 20 ng/L [facility] XR HAND RIGHT 3+ VIEWSon XR HAND RIGHT 3+ VIEWS Interpreted By: Michelle Zambrano, STUDY: XR HAND RIGHT 3+ VIEWS; ; 05/10/2025 3:06 pm INDICATION: Signs/Symptoms:injury. COMPARISON: None. ACCESSION NUMBER(S): [id number] ORDERING CLINICIAN: SANTIAGO MENENDEZ FINDINGS: Three views right hand: No acute fracture or malalignment. Severe degenerative changes of the 1st carpometacarpal joint and moderate degenerative changes of the 2nd metacarpophalangeal joint. No radiopaque foreign body or soft tissue gas. IMPRESSION: No acute osseous abnormality. MACRO: None Signed by: Michelle Zambrano 05/10/2025 4:34 PM Dictation workstation: [id number] [facility] XR Hand - right 3 Viewson No acute osseous abnormality. MACRO: None Signed by: Michelle Zambrano 05/10/2025 4:34 PM Dictation workstation: [id number] Interpreted By: Michelle Zambrano, STUDY: XR HAND RIGHT 3+ VIEWS; ; 05/10/2025 3:06 pm INDICATION: Signs/Symptoms:injury. COMPARISON: None. ACCESSION NUMBER(S): [id number] ORDERING CLINICIAN: SANTIAGO MENENDEZ FINDINGS: Three views [...] pm INDICATION: Signs/Symptoms:injury. COMPARISON: None. ACCESSION NUMBER(S): [id number] ORDERING CLINICIAN: SANTIAGO MENENDEZ FINDINGS: Three views right hand: No acute fracture or malalignment. Severe degenerative changes of the 1st carpometacarpal joint and moderate degenerative changes of the 2nd metacarpophalangeal joint. No radiopaque foreign body or soft tissue gas. IMPRESSION: No acute osseous abnormality. MACRO: None Signed by: Michelle Zambrano 05/10/2025 4:34 PM Dictation workstation: [id number] [facility] Work Phone: [facility] Work Phone: Radiology Study observation (narrative) [facility] Work Phone: aPTTon 05-10-2025 aPTT Coag (PPP) [Time] 29 s [facility] aP[facility] Coag (PPP) [Time]on The APTT is no longe r used for monitoring Unfractionated Heparin Therapy. For monitoring Heparin Therapy, use the Heparin Assay. [facility] XR CERVICAL SPINE 2-3 VIEWSo n 05-08-2025 XR CERVICAL SPINE 2-3 VIEWS Interpreted By: Clement Estevez, STUDY: XR CERVICAL SPINE 2-3 VIEWS; ; 05/08/2025 10:25 am INDICATION: Signs/Symptoms:neck pain. ,M54.2 Cervicalgia COMPARISON: None. ACCESSION NUMBER(S): [id number] ORDERING CLINICIAN: DON BARRERA FINDINGS: There is [...] Clement Estevez 05/09/2025 8:28 AM Dictation workstation: [id number] Normal [facility] CBC (INCLUDES DIFF/PLT)on Basophils (Bld) [#/Vol] 0.05 10*3/uL Normal 0-200 [facility] Comment on above: Performed By: #### 6 322, 78488 #### [facility] [address], [address] [place] [id number] Rand Cementer: Osman Rojo MD Basophils/100 WBC (Bld) 0.6 % Normal [facility] Comment on above: Performed By: #### 6 399, 28132 #### [facility] [place] [address] Rand Cementer: Osman Rojo MD Eosinophils (Bld) [#/Vol] 0.116 10*3/uL Normal 15-500 [facility] Comment on above: Performed By: #### 6 399, 39455 #### [facility] [place] [address] Rand Cementer: Osman Rojo MD Eosinophils/100 WBC (Bld) 1.4 % Normal [facility] Comment on above: Performed By: #### 6 399, 29867 #### [facility] [place] [address] Rand Cementer: Osman Rojo MD Erythrocyte distribution width (RBC) [Ratio] 12.3 % Normal 11.0-15.0 [facility] Comment on above: Performed By: #### 6 399, 88319 #### [facility] [place] [address] Rand Cementer: Osman Rojo MD Hematocrit (Bld) [Volume fraction] 40.6 % Normal 38.5-50.0 [facility] Comment on above: Performed By: #### 6 399, 21449 #### [facility] [place] [address] Rand Cementer: Osman Rojo MD Hemoglobin (Bld) [Mass/Vol] 13.0 g/dL Low 13.2-17.1 [facility] Comment on above: Performed By: #### 6 399, 45513 #### [facility] [place] [address] Rand Cementer: Osman Rojo MD Lymphocytes (Bld) [#/Vol] 1.204 10*3/uL Normal 850-3900 [facility] Comment on above: Performed By: #### 6 399, 21069 #### [facility] [place] [address] Rand Cementer: Osman Rojo MD Lymphocytes/100 WBC (Bld) 14.5 % Normal [facility] Comment on above: Performed By: #### 6 399, 64812 #### [facility] [place] [address] Rand Cementer: Osman Rojo MD MCH (RBC) [Entitic mass] 33.5 pg High 27.0-33.0 [facility] Comment on above: Performed By: #### 6 399, 46016 #### [facility] [place] [address] Rand Cementer: Osman Rojo MD MCHC (RBC) [Mass/Vol] 32.0 [...] clinical condition. Performed By: #### 6 399, 89961 #### [facility] [place] [address] Rand Cementer: Osman Rojo MD MCV (RBC) [Entitic vol] 104.6 fL High 80.0-100.0 [facility] Comment on above: Performed By: #### 6 399, 78526 #### [facility] [place] [address] Rand Cementer: Osman Rojo MD Monocytes (Bld) [#/Vol] 0.498 10*3/uL Normal 200-950 [facility] Comment on above: Performed By: #### 6 399, 12807 #### [facility] [place] [address] Rand Cementer: Osman Rojo MD Monocytes/100 WBC (Bld) 6.0 % Normal [facility] Comment on above: Performed By: #### 6 399, 35618 #### [facility] of [address], [address] [place] [address] Rand Cementer: Osman Rojo MD Neutrophils (Bld) [#/Vol] 6.433 10*3/uL Normal 9092-0498 [facility] Comment on above: Performed By: #### 6 399, 44553 #### [facility] of [address], [address] [place] [address] Rand Cementer: Osman Rojo MD Neutrophils/100 WBC (Bld) 77.5 % Normal [facility] Comment on above: Performed By: #### 6 399, 11242 #### [facility] [place] [address] Rand Cementer: Osman Rojo MD Platelet mean volume (Bld) [Entitic vol] 9.4 fL Normal 7.5-12.5 [facility] Comment on above: Performed By: #### 6 399, 39736 #### [facility] of [address], [address] [place] [address] Rand Cementer: Osman Rojo MD Platelets (Bld) [#/Vol] 263 10*3/uL Normal 140-400 [facility] Comment on above: Performed By: #### 6 399, 91863 #### [facility] [place] [address] Rand Cementer: Osman Rojo MD RBC (Bld) [#/Vol] 3.88 10*6/uL Low 4.20-5.80 [facility] Comment on above: Performed By: #### 6 399, 54046 #### [facility] [place] [address] Rand Cementer: Osman Rojo MD WBC (Bld) [#/Vol] 8.3 10*3/uL Normal 3.8-10.8 [facility] Comment on above: Performed By: #### 6 399, 09183 #### [facility] of [place] [address] [place] [address] Rand Cementer: Osman Rojo MD COMPREHENSIVE METABOLIC PANE L W/ANION GAPon 04-30-2025 Albumin [Mass/Vol] 4.5 g/dL Normal 3.6-5.1 [facility] Comment on above: Performed By: #### 6 399, 10093 #### [facility] of [address], [address] [place] [address] Rand Cementer: Osman Rojo MD ALP [Catalytic activity/Vol] 72 U/L Normal 35-144 [facility] Comment on above: Performed By: #### 6 399, 39475 #### [facility] [place] [address] Rand Cementer: Osman Rojo MD ALT [Catalytic activity/Vol] 13 U/L Normal 9-46 [facility] Comment on above: Performed By: #### 6 399, 15847 #### [facility] [place] [address] Rand Cementer: Osman Rojo MD AST [Catalytic activity/Vol] 15 U/L Normal 10-35 [facility] Comment on above: Performed By: #### 6 399, 51279 #### [facility] [place] [address] Rand Cementer: Osman Rojo MD Bilirubin [Mass/Vol] 0.5 mg/dL Normal 0.2-1.2 [facility] Comment on above: Performed By: #### 6 399, 04485 #### [facility] [place] [address] Rand Cementer: Osman Rojo MD Calcium [Mass/Vol] 8.9 mg/dL Normal 8.6-10.3 [facility] Comment on above: Performed By: #### 6 399, 59010 #### [facility] of [address], [address] [place] [address] Rand Cementer: Osman Rojo MD Chloride [Moles/Vol] 103 mmol/L Normal 98-110 [facility] Comment on above: Performed By: #### 6 399, 50908 #### [facility] [place] [address] Rand Cementer: Osman Rojo MD CO2 [Moles/Vol] 26 mmol/L Normal 20-32 [facility] Comment on above: Performed By: #### 6 399, 81806 #### [facility] [place] [address] Rand Cementer: Osman Rojo MD Creatinine [Mass/Vol] 0.75 mg/dL Normal 0.70-1.[address] [facility] Comment on above: Performed By: #### 6 399, 36844 #### [facility] [place] [address] Rand Cementer: Osman Rojo MD ELECTROLYTE BALANCE 10 mmol/L (calc) Normal 7-17 [facility] Comment on above: Performed By: #### 6 399, 31023 #### [facility] [place] [address] Rand Cementer: Osman Rojo MD GFR/1.73 sq M.predicted among non-blacks MDRD (S/P/Bld) [Vol rate/Area] 86 mL/min/{1.73_m2} Normal > OR = 60 [facility] Comment on above: Performed By: #### 6 399, 79018 #### [facility] [place] [address] Rand Cementer: Osman Rojo MD Glucose [Mass/Vol] 86 mg/dL Normal 65-99 [facility] Comment on above: Result Comment: Fasting reference interval Performed By: #### 6 399, 97189 #### [facility] [place] [address] Rand Cementer: Osman Rojo MD Potassium [Moles/Vol] 4.2 mmol/L Normal 3.5-5.[address] [facility] Comment on above: Performed By: #### 6 399, 78797 #### [facility] of [address], [address] [place] [address] Rand Cementer: Osman Rojo MD Protein [Mass/Vol] 6.2 g/dL Normal 6.1-8.1 [facility] Comment on above: Performed By: #### 6 399, 12212 #### [facility] [address], [address] [place] [address] Rand Cementer: Osman Rojo MD Sodium [Moles/Vol] 139 mmol/L Normal 135-146 [facility] Comment on above: Performed By: #### 6 399, 24106 #### [facility] [address], [address] [place] [address] Rand Cementer: Osman Rojo MD Urea nitrogen [Mass/Vol] 22 mg/dL Normal 7-25 [facility] Comment on above: Performed By: #### 6 399, 36136 #### [facility] [address], [address] [place] [address] Rand Cementer: Osman Rojo MD XR RIBS 2 VIEWS [...] Sunday.. ,R07.81 Pleurodynia COMPARISON: None. ACCESSION NUMBER(S): [id number] ORDERING CLINICIAN: LINCOLN KING FINDINGS: Cardiac silhouette within normal limits. Mild bibasilar fibrotic stranding. No focal infiltrate, pleural effusion or pneumothorax. Nondisplaced fracture of the anterior left 6th rib. IMPRESSION: Nondisplaced fracture anterior left 6th rib. No pneumothorax. MACRO: None Signed by: Howard Elias 04/10/2025 1:50 PM Dictation workstation: [id number] [facility] XR Ribs Views and Chest PAon 04-10-2025 Nondisplaced fractur e anterior left 6th rib. No pneumothorax. MACRO: None Signed by: Howard Elias 04/10/2025 1:50 PM Dictation workstation: [id number] Interpreted By: Howard Elias, STUDY: XR RIBS 2 VIEWS LEFT WITH CHEST PA OR AP; ; 04/10/2025 12:23 pm INDICATION: Signs/Symptoms:L lower anterior/lateral ribcage pain - reports sxs started after a chiropractic adjustment (done while he was laying on his abdomen) on Sunday.. ,R07.81 Pleurodynia COMPARISON: None. ACCESSION NUMBER(S): [id number] ORDERING CLINICIAN: LINCOLN KING FINDINGS: Cardiac silhouette [...] Sunday.. ,R07.81 Pleurodynia COMPARISON: None. ACCESSION NUMBER(S): [id number] ORDERING CLINICIAN: LINCOLN KING FINDINGS: Cardiac silhouette within normal limits. Mild bibasilar fibrotic stranding. No focal infiltrate, pleural effusion or pneumothorax. Nondisplaced fracture of the anterior left 6th rib. IMPRESSION: Nondisplaced fracture anterior left 6th rib. No pneumothorax. MACRO: None Signed by: Howard Elias 04/10/2025 1:50 PM Dictation workstation: [id number] [facility] Work Phone: Radiology Study observation (narrative) [facility] Work Phone: XR Ribs Views and Chest PAOr dered By: Howard Elias on 04-10-2025 [facility] Work Phone: CBC (INCLUDES DIFF/PLT)on Basophils (Bld) [#/Vol] 0.05 10*3/uL Normal 0-200 [facility] Comment on above: Performed By: #### 9 351, 6399 #### [facility] of [address], [address] [place] [address] Rand Cementer: Osman Rojo MD Basophils/100 WBC (Bld) 0.6 % Normal [facility] Comment on above: Performed By: #### 9 2664, 6399 #### [facility] of [place] [address] Rand Cementer: Osman Rojo MD Eosinophils (Bld) [#/Vol] 0.116 10*3/uL Normal 15-500 [facility] Comment on above: Performed By: #### 9 2664, 6399 #### [facility] [place] [address] Rand Cementer: Osman Rojo MD Eosinophils/100 WBC (Bld) 1.4 % Normal [facility] Comment on above: Performed By: #### 9 2664, 6399 #### [facility] [place] [address] Rand Cementer: Osman Rojo MD Erythrocyte distribution width (RBC) [Ratio] 12.9 % Normal 11.0-15.0 [facility] Comment on above: Performed By: #### 9 522, 6399 #### [facility] [place] [address] Rand Cementer: Osman Rojo MD Hematocrit (Bld) [Volume fraction] 38.2 % Low 38.5-50.0 [facility] Comment on above: Performed By: #### 9 041, 6399 #### [facility] [place] [address] Rand Cementer: Osman Rojo MD Hemoglobin (Bld) [Mass/Vol] 12.8 g/dL Low 13.2-17.1 [facility] Comment on above: Performed By: #### 9 409, 6399 #### [facility] of [address], [address] [place] [address] Rand Cementer: Osman Rojo MD Lymphocytes (Bld) [#/Vol] 0.764 10*3/uL Low 850-3900 [facility] Comment on above: Performed By: #### 9 9015, 6399 #### [facility] of [address], [address] [place] [address] Rand Cementer: Osman Rojo MD Lymphocytes/100 WBC (Bld) 9.2 % Normal [facility] Comment on above: Performed By: #### 9 889, 6399 #### [facility] of [address], [address] [place] [address] Rand Cementer: Osman Rojo MD MCH (RBC) [Entitic mass] 34.0 pg High 27.0-33.0 [facility] Comment on above: Performed By: #### 9 928, 6399 #### [facility] of [address], [address] [place] [address] Rand Cementer: Osman Rojo MD MCHC (RBC) [Mass/Vol] 33.5 [...] patient's clinical condition. Performed By: #### 9 323, 6399 #### [facility] of [address], [address] [place] [address] Rand Cementer: Osman Rojo MD MCV (RBC) [Entitic vol] 101.3 fL High 80.0-100.0 [facility] Comment on above: Performed By: #### 9 054, 6399 #### [facility] of [address], [address] [place] [address] Rand Cementer: Osman Rojo MD Monocytes (Bld) [#/Vol] 0.714 10*3/uL Normal 200-950 [facility] Comment on above: Performed By: #### 9 2664, 6399 #### [facility] [place] [address] Rand Cementer: Osman Rojo MD Monocytes/100 WBC (Bld) 8.6 % Normal [facility] Comment on above: Performed By: #### 9 2664, 6399 #### [facility] [place] [address] Rand Cementer: Osman Rojo MD Neutrophils (Bld) [#/Vol] 6.657 10*3/uL Normal 5479-6847 [facility] Comment on above: Performed By: #### 9 2664, 6399 #### [facility] [place] [address] Rand Cementer: Osman Rojo MD Neutrophils/100 WBC (Bld) 80.2 % Normal [facility] Comment on above: Performed By: #### 9 266, 6399 #### [facility] [place] [address] Rand Cementer: Osman Rojo MD Platelet mean volume (Bld) [Entitic vol] 9.5 fL Normal 7.5-12.5 [facility] Comment on above: Performed By: #### 9 266, 6399 #### [facility] [place] [address] Rand Cementer: Osman Rojo MD Platelets (Bld) [#/Vol] 280 10*3/uL Normal 140-400 [facility] Comment on above: Performed By: #### 9 266, 6399 #### [facility] [place] [address] Rand Cementer: Osman Rojo MD RBC (Bld) [#/Vol] 3.77 10*6/uL Low 4.20-5.80 [facility] Comment on above: Performed By: #### 9 5, 6399 #### [facility] of [address], [address] [place] [address] Rand Cementer: Osman Rojo MD WBC (Bld) [#/Vol] 8.3 10*3/uL Normal 3.8-10.8 [facility] Comment on above: Performed By: #### 9 8425, 6399 #### [facility] of [address], [address] [place] [address] Rand Cementer: Osman Rojo MD COMPREHENSIVE METABOLIC PANE L W/ANION GAPon 01-28-2025 Albumin [Mass/Vol] 4.1 g/dL Normal 3.6-5.1 [facility] Comment on above: Performed By: #### 9 5, 6399 #### [facility] [place] [address] Rand Cementer: Osman Rojo MD ALP [Catalytic activity/Vol] 70 U/L Normal 35-144 [facility] Comment on above: Performed By: #### 9 383, 6399 #### [facility] [place] [address] Rand Cementer: Osman Rojo MD ALT [Catalytic activity/Vol] 18 U/L Normal 9-46 [facility] Comment on above: Performed By: #### 9 506, 6399 #### [facility] [place] [address] Rand Cementer: Osman Rojo MD AST [Catalytic activity/Vol] 19 U/L Normal 10-35 [facility] Comment on above: Performed By: #### 9 9255, 6399 #### [facility] [place] [address] Rand Cementer: Osman Rojo MD Bilirubin [Mass/Vol] 0.7 mg/dL Normal 0.2-1.2 [facility] Comment on above: Performed By: #### 9 479, 6399 #### [facility] of [address] [place] [address] Rand Cementer: Osman Rojo MD Calcium [Mass/Vol] 8.7 mg/dL Normal 8.6-10.3 [facility] Comment on above: Performed By: #### 9 716, 6399 #### [facility] of [address], [address] [place] [address] Rand Cementer: Osman Rojo MD Chloride [Moles/Vol] 104 mmol/L Normal 98-110 [facility] Comment on above: Performed By: #### 9 2664, 6399 #### [facility] of [address], [address] [place] [address] Rand Cementer: Osman Rojo MD CO2 [Moles/Vol] 25 mmol/L Normal 20-32 [facility] Comment on above: Performed By: #### 9 079, 6399 #### [facility] of [address], [address] [place] [address] Rand Cementer: Osman Rojo MD Creatinine [Mass/Vol] 0.87 mg/dL Normal 0.70-1.[address] [facility] Comment on above: Performed By: #### 9 521, 6399 #### [facility] of [place] [address] Rand Cementer: Osman Rojo MD ELECTROLYTE BALANCE 11 mmol/L (calc) Normal 7-17 [facility] Comment on above: Performed By: #### 9 646, 6399 #### [facility] of [place] [address] Rand Cementer: Osman Rojo MD GFR/1.73 sq M.predicted among non-blacks MDRD (S/P/Bld) [Vol rate/Area] 83 mL/min/{1.73_m2} Normal > OR = 60 [facility] Comment on above: Performed By: #### 9 376, 6399 #### [facility] of [address], [address] [place] [address] Rand Cementer: sOman Rojo MD Glucose [Mass/Vol] 79 mg/dL Normal 65-99 [facility] Comment on above: Result Comment: Fasting reference interval Performed By: #### 9 9005, 6399 #### [facility] [place] [address] Rand Cementer: Osman Rojo MD Potassium [Moles/Vol] 4.1 mmol/L Normal 3.5-5.[address] [facility] Comment on above: Performed By: #### 9 6805, 6399 #### [facility] [place] [address] Rand Cementer: Osman Rojo MD Protein [Mass/Vol] 5.9 g/dL Low 6.1-8.1 [facility] Comment on above: Performed By: #### 9 3185, 6399 #### [facility] [place] [address] Rand Cementer: Osman Rojo MD Sodium [Moles/Vol] 140 mmol/L Normal 135-146 [facility] Comment on above: Performed By: #### 9 7435, 6399 #### [facility] [place] [address] Rand Cementer: Osman Rojo MD Urea nitrogen [Mass/Vol] 21 mg/dL Normal 7-25 [facility] Comment on above: Performed By: #### 9 7065, 6399 #### [facility] [place] [address] Rand Cementer: Osman Rojo MD DIRECT LDLon 11-21-2024 Cholesterol in LDL [Mass/Vol] 80 mg/dL Normal <100 [facility] Comment on above: Order Comment: FASTI NG:NO FASTING: NO Result Comment: Geraldine tly elevated Triglycerides values (>1200 mg/dL) interfere with the dLDL assay. Desirable range <100 mg/dL for primary prevention; <70 mg/dL for patients with CHD or diabetic patients with > or = 2 CHD risk factors. Performed By: #### 8 293, 466, 457, 927 #### [facility] [place] [address] [place] [address] Rand Cementer: Osman Rojo MD FERRITINon 11-21-2024 Ferritin [Mass/Vol] 158 ng/mL Normal 24-380 [facility] Comment on above: Performed By: #### 8 293, 466, 457, 927 #### [facility] [address], [address] [place] [address] Rand Cementer: Osman Rojo MD FOLATE, SERUMon 11-21-2024 Folate [Mass/Vol] ng/mL Normal [facility] Comment on above: Result Comment: Refe rence Range Low: <3.4 Borderline: 3.4-5.4 Normal: >5.4 Performed By: #### 8 293, 466, 457, 927 #### [facility] [address], [address] [place] [address] Rand Cementer: Osman Rojo MD VITAMIN B12on 11-21-2024 Cobalamin [...] 293, 466, 457, 927 #### [facility] [address], [address] [place] [address] Rand Cementer: Osman Rojo MD CBC W Auto Differential pane l (Bld)on 11-10-2024 Basophils (Bld) [#/Vol] 0.06 x10*3/uL Normal 0.00-0.10 [facility] Comment on above: Performed By: #### 5 7021-8 #### KALIN OSBORN ([id number]) [facility] ([facility]) [address] [place] [address] Basophils/100 WBC (Bld) 0.6 % Normal 0.0-2.0 [facility] Comment on above: Performed By: #### 5 7021-8 #### KALIN OSBORN ([id number]) [facility] ([facility]) [address] [place] [address] 58530 Eosinophils (Bld) [#/Vol] 0.10 x10*3/uL Normal 0.00-0.40 [facility] Comment on above: Performed By: #### 70-8 #### KALIN OSBORN ([id number]) [facility] ([facility]) [address] [place] [address] 59639 Eosinophils/100 WBC (Bld) 1.1 % Normal 0.0-6.0 [facility] Comment on above: Performed By: #### 70-8 #### KALIN OSBORN ([id number]) [facility] ([facility]) [address] [place] [address] 76172 Erythrocyte distribution width (RBC) [Ratio] 13.4 % Normal 11.5-14.5 [facility] Comment on above: Performed By: #### 7021-8 #### KALIN OSBORN ([id number]) [facility] ([facility]) [address] [place] [address] 21010 Hematocrit (Bld) [Volume fraction] 41.4 % Normal 41.0-52.0 [facility] Comment on above: Performed By: #### 5 7021-8 #### KALIN OSBORN ([id number]) [facility] ([facility]) [address] [place] [address] 53186 Hemoglobin (Bld) [Mass/Vol] 13.0 g/dL Low 13.5-17.5 [facility] Comment on above: Performed By: #### 7021-8 #### KALIN OSBORN ([id number]) [facility] ([facility]) [address] [place] [address] 71042 Immature granulocytes (Bld) [#/Vol] 0.05 x10*3/uL Normal 0.00-0.50 [facility] Comment on above: Performed By: #### 5 7021-8 #### KALIN OSBORN ([id number]) [facility] ([facility]) [address] [place] [address] 74362 Immature granulocytes/100 WBC (Bld) 0.5 % Normal 0.0-0.9 [facility] Comment on above: Result Comment: Steph ture Granulocyte Count (IG) includes promyelocytes, myelocytes and metamyelocytes but does not include bands. Percent differential counts (%) should be interpreted in the context of the absolute cell counts (cells/UL). Performed By: #### 5 7021-8 #### KALIN OSBORN ([id number]) [facility] ([facility]) [address] [place], [place] [address] Lymphocytes (Bld) [#/Vol] 1.08 x10*3/uL Normal 0.80-3.00 [facility] Comment on above: Performed By: #### 5 7021-8 #### KALIN OSBORN ([id number]) [facility] ([facility]) [address] [place] [address] 33660 Lymphocytes/100 WBC (Bld) 11.5 % Normal 13.0-44.0 [facility] Comment on above: Performed By: #### 5 7021-8 #### KALIN OSBORN ([id number]) [facility] ([facility]) [address] [place] [address] 21895 MCH (RBC) [Entitic mass] 33.2 pg Normal 26.0-34.0 [facility] Comment on above: Performed By: #### 5 7021-8 #### KALIN OSBORN ([id number]) [facility] ([facility]) [address] [place] [address] 10467 MCHC (RBC) [Mass/Vol] 31.4 g/dL Low 32.0-36.0 [facility] Comment on above: Performed By: #### 5 7021-8 #### KALIN OSBORN ([id number]) [facility] ([facility]) [address] [place] [address] 25215 MCV (RBC) [Entitic vol] 106 fL High 80-100 [facility] Comment on above: Performed By: #### 5 7021-8 #### KALIN OSBORN ([id number]) [facility] ([facility]) [address] [place] [address] 73929 Monocytes (Bld) [#/Vol] 0.85 x10*3/uL High 0.05-0.80 [facility] Comment on above: Performed By: #### 5 7021-8 #### KALIN OSBORN ([id number]) [facility] ([facility]) [address] [place] [address] 76079 Monocytes/100 WBC (Bld) 9.0 % Normal 2.0-10.0 [facility] Comment on above: Performed By: #### 5 7021-8 #### KALIN OSBORN ([id number]) [facility] ([facility]) [address] [place] [address] 56303 Neutrophils (Bld) [#/Vol] 7.27 x10*3/uL High 1.60-5.50 [facility] Comment on above: Result Comment: Perc ent differential counts (%) should be interpreted in the context of the absolute cell counts (cells/uL). Performed By: #### 5 7021-8 #### KALIN OSBORN ([id number]) [facility] ([facility]) [address] [place] [address] 20598 Neutrophils/100 WBC (Bld) 77.3 % Normal 40.0-80.0 [facility] Comment on above: Performed By: #### 5 7021-8 #### KALIN OSBORN ([id number]) [facility] ([facility]) [address] [place] [address] 84896 Nucleated RBC/100 WBC (Bld) [Ratio] 0.0 /100 WBCs Normal 0.0-0.0 [facility] Comment on above: Performed By: #### 5 7021-8 #### KALIN OSBORN ([id number]) [facility] ([facility]) [address] [place] [address] 13512 Platelets (Bld) [#/Vol] 270 x10*3/uL Normal 150-450 [facility] Comment on above: Performed By: #### 5 7021-8 #### KALIN OSBORN ([id number]) [facility] ([facility]) [address] [place] [address] RBC (Bld) [#/Vol] 3.92 x10*6/uL Low 4.50-5.90 [facility] Comment on above: Performed By: #### 5 7021-8 #### KALIN OSBORN ([id number]) [facility] ([facility]) [address] [place] [address] 38439 WBC (Bld) [#/Vol] 9.4 x10*3/uL Normal 4.4-11.3 [facility] Comment on above: Performed By: #### 5 7021-8 #### KALIN OSBORN ([id number]) [facility] ([facility]) [address] [place] [address] Comprehensive metabolic 2000 panelon 11-10-2024 Albumin BCP dye [Mass/Vol] 4.2 g/dL Normal 3.4-5.0 [facility] Comment on above: Performed By: #### 2 4323-8 #### KALIN OSBORN ([id number]) [facility] ([facility]) [address] [place] [address] 55879 ALP [Catalytic activity/Vol] 57 U/L Normal 33-136 [facility] Comment on above: Performed By: #### 2 4323-8 #### KALIN OSBORN ([id number]) [facility] ([facility]) [address] [place] [address] 42992 ALT With P-5'-P [Catalytic activity/Vol] 13 U/L Normal 10-52 [facility] Comment on above: Result Comment: Nicolette ents treated with Sulfasalazine may generate falsely decreased results for ALT. Performed By: #### 2 4323-8 #### KALIN OSBORN ([id number]) [facility] ([facility]) [address] [place] [address] Anion gap [Moles/Vol] 11 mmol/L Normal 10-20 [facility] Comment on above: Performed By: #### 2 4323-8 #### KALIN OSBORN ([id number]) [facility] ([facility]) [address] [place] [address] AST With P-5'-P [Catalytic activity/Vol] 15 U/L Normal 9-39 [facility] Comment on above: Performed By: #### 2 4323-8 #### KALIN OSBORN ([id number]) [facility] ([facility]) [address] [place] [address] Bilirubin [Mass/Vol] 0.7 mg/dL Normal 0.0-1.2 [facility] Comment on above: Performed By: #### 2 4323-8 #### KALIN OSBORN ([id number]) [facility] ([facility]) [address] [place] [address] 68183 Calcium [Mass/Vol] 9.0 mg/dL Normal 8.6-10.3 [facility] Comment on above: Performed By: #### 2 4322-8 #### KALIN OSBORN ([id number]) [facility] ([facility]) [address] [place] [address] 82376 Chloride [Moles/Vol] 106 mmol/L Normal 98-107 [facility] Comment on above: Performed By: #### 2 4322-8 #### KALIN OSBORN ([id number]) [facility] ([facility]) [address] [place] [address] 29135 CO2 [Moles/Vol] 28 mmol/L Normal 21-32 [facility] Comment on above: Performed By: #### 2 4323-8 #### KALIN OSBORN ([id number]) [facility] ([facility]) [address] [place] [address] 15748 Creatinine [Mass/Vol] 1.00 mg/dL Normal 0.50-1.30 [facility] Comment on above: Performed By: #### 2 4323-8 #### KALIN OSBORN ([id number]) [facility] ([facility]) [address] [place] [address] 23428 Glomerular filtration rate/1.73 sq M.predicted 72 mL/min/1.73m*2 Normal >60 [facility] Comment on above: Result Comment: Calc ulations of estimated GFR are performed using the 2020 CKD-EPI Study Refit equation without the race variable for the IDMS-Traceable creatinine methods. https://jasn.asnjournals.org/content//ASN.56391 54616 Performed By: #### 2 4323-8 #### KALIN OSBORN ([id number]) [facility] ([facility]) [address] [place] [address] 36131 Glucose [Mass/Vol] 85 mg/dL Normal 74-99 [facility] Comment on above: Performed By: #### 2 4323-8 #### KALIN OSBORN ([id number]) [facility] ([facility]) [address] [place] [address] 45745 Potassium [Moles/Vol] 4.4 mmol/L Normal 3.5-5.3 [facility] Comment on above: Performed By: #### 2 4323-8 #### KALIN OSBORN ([id number]) [facility] ([facility]) [address] [place] [address] 77784 Protein [Mass/Vol] 5.8 g/dL Low 6.4-8.2 [facility] Comment on above: Performed By: #### 2 4323-8 #### KALIN OSBORN ([id number]) [facility] ([facility]) [address] [place] [address] 27884 Sodium [Moles/Vol] 141 mmol/L Normal 136-145 [facility] Comment on above: Performed By: #### 2 4323-8 #### KALIN OSBORN ([id number]) [facility] ([facility]) [address] [place] [address] 80577 Urea nitrogen [Mass/Vol] 23 mg/dL Normal 6-23 [facility] Comment on above: Performed By: #### 2 4323-8 #### KALIN OSBORN ([id number]) [facility] ([facility]) [address] [place] [address] 27160 CBC W Auto Differential pane l (Bld)on 09-01-2024 Basophils (Bld) [#/Vol] 0.03 x10*3/uL Normal 0.00-0.10 [facility] Comment on above: Performed By: #### 5 7021-8 #### KALIN OSBORN ([id number]) [facility] ([facility]) [address] [place] [address] 86641 Basophils/100 WBC (Bld) 0.2 % Normal 0.0-2.0 [facility] Comment on above: Performed By: #### 5 7021-8 #### KALIN OSBORN ([id number]) [facility] ([facility]) [address] [place] [address] 35923 Eosinophils (Bld) [#/Vol] 0.03 x10*3/uL Normal 0.00-0.40 [facility] Comment on above: Performed By: #### 5 7021-8 #### KALIN OSBORN ([id number]) [facility] ([facility]) [address] [place] [address] 40882 Eosinophils/100 WBC (Bld) 0.2 % Normal 0.0-6.0 [facility] Comment on above: Performed By: #### 7021-8 #### KALIN OSBORN ([id number]) [facility] ([facility]) [address] [place] [address] 97518 Erythrocyte distribution width (RBC) [Ratio] 13.0 % Normal 11.5-14.5 [facility] Comment on above: Performed By: #### 5 7021-8 #### KALIN OSBORN ([id number]) [facility] ([facility]) [address] [place] [address] 51331 Hematocrit (Bld) [Volume fraction] 46.1 % Normal 41.0-52.0 [facility] Comment on above: Performed By: #### 5 7021-8 #### KALIN OSBORN ([id number]) [facility] ([facility]) [address] [place] [address] 59831 Hemoglobin (Bld) [Mass/Vol] 14.6 g/dL Normal 13.5-17.5 [facility] Comment on above: Performed By: #### 5 7021-8 #### KALIN OSBORN ([id number]) [facility] ([facility]) [address] [place] [address] 19168 Immature granulocytes (Bld) [#/Vol] 0.19 x10*3/uL Normal 0.00-0.50 [facility] Comment on above: Performed By: #### 5 7021-8 #### KALIN OSBORN ([id number]) [facility] ([facility]) [address] [place] [address] 59349 Immature granulocytes/100 WBC (Bld) 1.3 % High 0.0-0.9 [facility] Comment on above: Result Comment: Steph ture Granulocyte Count (IG) includes promyelocytes, myelocytes and metamyelocytes but does not include bands. Percent differential counts (%) should be interpreted in the context of the absolute cell counts (cells/UL). Performed By: #### 5 7021-8 #### KALIN OSBORN ([id number]) [facility] ([facility]) [address] [place] [address] 96081 Lymphocytes (Bld) [#/Vol] 0.96 x10*3/uL Normal 0.80-3.00 [facility] Comment on above: Performed By: #### 5 7021-8 #### KALIN OSBORN ([id number]) [facility] ([facility]) [address] [place] [address] 93390 Lymphocytes/100 WBC (Bld) 6.6 % Normal 13.0-44.0 [facility] Comment on above: Performed By: #### 5 7021-8 #### KALIN OSBORN ([id number]) [facility] ([facility]) [address] [place] [address] 00163 MCH (RBC) [Entitic mass] 33.6 pg Normal 26.0-34.0 [facility] Comment on above: Performed By: #### 5 7021-8 #### KALIN OSBORN ([id number]) [facility] ([facility]) [address] [place] [address] 74410 MCHC (RBC) [Mass/Vol] 31.7 g/dL Low 32.0-36.0 [facility] Comment on above: Performed By: #### 5 7021-8 #### KALIN OSBORN ([id number]) [facility] ([facility]) [address] [place] [address] 83568 MCV (RBC) [Entitic vol] 106 fL High 80-100 [facility] Comment on above: Performed By: #### 5 7021-8 #### KALIN OSBORN ([id number]) [facility] ([facility]) [address] [place] [address] 82136 Monocytes (Bld) [#/Vol] 1.47 x10*3/uL High 0.05-0.80 [facility] Comment on above: Performed By: #### 5 7021-8 #### KALIN OSBORN ([id number]) [facility] ([facility]) [address] [place] [address] 24215 Monocytes/100 WBC (Bld) 10.2 % Normal 2.0-10.0 [facility] Comment on above: Performed By: #### 5 7021-8 #### KALIN OSBORN ([id number]) [facility] ([facility]) [address] [place] [address] 10458 Neutrophils (Bld) [#/Vol] 11.78 x10*3/uL High 1.60-5.50 [facility] Comment on above: Result Comment: Perc ent differential counts (%) should be interpreted in the context of the absolute cell counts (cells/uL). Performed By: #### 5 7021-8 #### AKLIN OSBORN ([id number]) [facility] ([facility]) [address] [place] [address] 41530 Neutrophils/100 WBC (Bld) 81.5 % Normal 40.0-80.0 [facility] Comment on above: Performed By: #### 5 7021-8 #### KALIN OSBORN ([id number]) [facility] ([facility]) [address] [place] [address] 86223 Nucleated RBC/100 WBC (Bld) [Ratio] 0.0 /100 WBCs Normal 0.0-0.0 [facility] Comment on above: Performed By: #### 5 7021-8 #### KALIN OSBORN ([id number]) [facility] ([facility]) [address] [place] [address] 40003 Platelets (Bld) [#/Vol] 305 x10*3/uL Normal 150-450 [facility] Comment on above: Performed By: #### 5 7021-8 #### KALIN OSBORN ([id number]) [facility] ([facility]) [address] [place] [address] RBC (Bld) [#/Vol] 4.35 x10*6/uL Low 4.50-5.90 [facility] Comment on above: Performed By: #### 5 7021-8 #### KALIN OSBORN ([id number]) [facility] ([facility]) [address] [place] [address] WBC (Bld) [#/Vol] 14.5 x10*3/uL High 4.4-11.3 [facility] Comment on above: Performed By: #### 5 7021-8 #### KALIN OSBORN ([id number]) [facility] ([facility]) [address] [place] [address] Comprehensive metabolic 2000 panelon 09-01-2024 Albumin BCP dye [Mass/Vol] 4.2 g/dL Normal 3.4-5.0 [facility] Comment on above: Performed By: #### 2 4323-8 #### KALIN OSBORN ([id number]) [facility] ([facility]) [address] [place] [address] ALP [Catalytic activity/Vol] 64 U/L Normal 33-136 [facility] Comment on above: Performed By: #### 2 4323-8 #### KALIN OSBORN ([id number]) [facility] ([facility]) [address] [place] [address] 60149 ALT With P-5'-P [Catalytic activity/Vol] 20 U/L Normal 10-52 [facility] Comment on above: Result Comment: Nicolette ents treated with Sulfasalazine may generate falsely decreased results for ALT. Performed By: #### 2 4323-8 #### KALIN OSBORN ([id number]) [facility] ([facility]) [address] [place] [address] Anion gap [Moles/Vol] 11 mmol/L Normal 10-20 [facility] Comment on above: Performed By: #### 2 432-8 #### KALIN OSBORN ([id number]) [facility] ([facility]) [address] [place] [address] AST With P-5'-P [Catalytic activity/Vol] 14 U/L Normal 9-39 [facility] Comment on above: Performed By: #### 2 432-8 #### KALIN OSBORN ([id number]) [facility] ([facility]) [address] [place] [address] 85227 Bilirubin [Mass/Vol] 0.8 mg/dL Normal 0.0-1.2 [facility] Comment on above: Performed By: #### 2 432-8 #### KALIN OSBORN ([id number]) [facility] ([facility]) [address] [place] [address] 38380 Calcium [Mass/Vol] 9.2 mg/dL Normal 8.6-10.3 [facility] Comment on above: Performed By: #### 2 432-8 #### KALIN OSBORN ([id number]) [facility] ([facility]) [address] [place] [address] Chloride [Moles/Vol] 105 mmol/L Normal 98-107 [facility] Comment on above: Performed By: #### 2 432-8 #### KALIN OSBORN ([id number]) [facility] ([facility]) [address] [place] [address] CO2 [Moles/Vol] 29 mmol/L Normal 21-32 [facility] Comment on above: Performed By: #### 2 432-8 #### KALIN OSBORN ([id number]) [facility] ([facility]) [address] [place] [address] Creatinine [Mass/Vol] 0.92 mg/dL Normal 0.50-1.30 [facility] Comment on above: Performed By: #### 2 432-8 #### KALIN OSBORN ([id number]) [facility] ([facility]) [facility] [place] [address] Glomerular filtration rate/1.73 sq M.predicted 80 mL/min/1.73m*2 Normal >60 [facility] Comment on above: Result Comment: Calc ulations of estimated GFR are performed using the 2020 CKD-EPI Study Refit equation without the race variable for the IDMS-Traceable creatinine methods. https://jasn.asnjournals.org/content/early//ASN.59530 56284 Performed By: #### 2 432-8 #### KALIN OSBORN ([id number]) [facility] ([facility]) [address] [place] [address] 10848 Glucose [Mass/Vol] 52 mg/dL Low 74-99 [facility] Comment on above: Performed By: #### 2 4323-8 #### KALIN OSBORN ([id number]) [facility] ([facility]) [address] [place] [address] 63809 Potassium [Moles/Vol] 4.0 mmol/L Normal 3.5-5.3 [facility] Comment on above: Performed By: #### 2 4323-8 #### KALIN OSBORN ([id number]) [facility] ([facility]) [address] [place] [address] 56239 Protein [Mass/Vol] 6.2 g/dL Low 6.4-8.2 [facility] Comment on above: Performed By: #### 2 4323-8 #### KALIN OSBORN ([id number]) [facility] ([facility]) [address] [place] [address] 23104 Sodium [Moles/Vol] 141 mmol/L Normal 136-145 [facility] Comment on above: Performed By: #### 2 4323-8 #### KALIN OSBORN ([id number]) [facility] ([facility]) [address] [place] [address] 20768 Urea nitrogen [Mass/Vol] 30 mg/dL High 6-23 [facility] Comment on above: Performed By: #### 2 4323-8 #### KALIN OSBORN ([id number]) [facility] ([facility]) [address] [place] [address] 82302 ECG 12 Leadon 09-01-2024 79 bpm, NSR, no ST/T cxhanges [facility] Work Phone: [facility] Work Phone: TSH WITH REFLEX TO FREE T4 I F ABNORMALon 09-01-2024 TSH Qn 2.99 m[IU]/L Normal 0.44-3.98 [facility] Comment on above: Order Comment: TSH t esting is performed using different testing methodology at [facility] than at other [facility]. Direct result comparisons should only be made within the same method. Performed By: #### T HYDS #### KALIN OSBORN ([id number]) [facility] ([facility]) [address] [place] [address] 85708 CBC W Auto Differential pane l (Bld)on 08-14-2024 Basophils (Bld) [#/Vol] 0.06 x10*3/uL Normal 0.00-0.10 [facility] Comment on above: Performed By: #### 5 7021-8 #### KALIN OSBORN ([id number]) [facility] ([facility]) [address] [place] [address] 82285 Basophils/100 WBC (Bld) 0.6 % Normal 0.0-2.0 [facility] Comment on above: Performed By: #### 5 7021-8 #### KALIN OSBORN ([id number]) [facility] ([facility]) [address] [place] [address] 21687 Eosinophils (Bld) [#/Vol] 0.14 x10*3/uL Normal 0.00-0.40 [facility] Comment on above: Performed By: #### 5 7021-8 #### KALIN OSBORN ([id number]) [facility] ([facility]) [address] [place] [address] 49617 Eosinophils/100 WBC (Bld) 1.4 % Normal 0.0-6.0 [facility] Comment on above: Performed By: #### 5 7021-8 #### KALIN OSBORN ([id number]) [facility] ([facility]) [address] [place] [address] 77191 Erythrocyte distribution width (RBC) [Ratio] 13.1 % Normal 11.5-14.5 [facility] Comment on above: Performed By: #### 5 7021-8 #### KALIN OSBORN ([id number]) [facility] ([facility]) [address] [place] [address] Hematocrit (Bld) [Volume fraction] 40.2 % Low 41.0-52.0 [facility] Comment on above: Performed By: #### 5 7021-8 #### KALIN OSBORN ([id number]) [facility] ([facility]) [address] [place] [address] 83549 Hemoglobin (Bld) [Mass/Vol] 13.0 g/dL Low 13.5-17.5 [facility] Comment on above: Performed By: #### 5 7021-8 #### KALIN OSBORN ([id number]) [facility] ([facility]) [address] [place] [address] 40093 Immature granulocytes (Bld) [#/Vol] 0.05 x10*3/uL Normal 0.00-0.50 [facility] Comment on above: Performed By: #### 5 7021-8 #### KALIN OSBORN ([id number]) [facility] ([facility]) [address] [place] [address] 59070 Immature granulocytes/100 WBC (Bld) 0.5 % Normal 0.0-0.9 [facility] Comment on above: Result Comment: Steph ture Granulocyte Count (IG) includes promyelocytes, myelocytes and metamyelocytes but does not include bands. Percent differential counts (%) should be interpreted in the context of the absolute cell counts (cells/UL). Performed By: #### 5 7021-8 #### KALIN OSBORN ([id number]) [facility] ([facility]) [address] [place] [address] 62314 Lymphocytes (Bld) [#/Vol] 0.97 x10*3/uL Normal 0.80-3.00 [facility] Comment on above: Performed By: #### 5 7021-8 #### KALIN OSBORN ([id number]) [facility] ([facility]) [address] [place] [address] 84551 Lymphocytes/100 WBC (Bld) 10.0 % Normal 13.0-44.0 [facility] Comment on above: Performed By: #### 5 7021-8 #### KALIN OSBORN ([id number]) [facility] ([facility]) [address] [place] [address] 39188 MCH (RBC) [Entitic mass] 34.3 pg High 26.0-34.0 [facility] Comment on above: Performed By: #### 5 7021-8 #### KALIN OSBORN ([id number]) [facility] ([facility]) [address] [place] [address] 48791 MCHC (RBC) [Mass/Vol] 32.3 g/dL Normal 32.0-36.0 [facility] Comment on above: Performed By: #### 5 7021-8 #### KALIN OSBORN ([id number]) [facility] ([facility]) [address] [place] [address] 40305 MCV (RBC) [Entitic vol] 106 fL High 80-100 [facility] Comment on above: Performed By: #### 5 7021-8 #### KALIN OSBORN ([id number]) [facility] ([facility]) [address] [place] [address] 13993 Monocytes (Bld) [#/Vol] 0.55 x10*3/uL Normal 0.05-0.80 [facility] Comment on above: Performed By: #### 5 7021-8 #### KALIN OSBORN ([id number]) [facility] ([facility]) [address] [place] [address] 59921 Monocytes/100 WBC (Bld) 5.7 % Normal 2.0-10.0 [facility] Comment on above: Performed By: #### 5 7021-8 #### AKLIN OSBORN ([id number]) [facility] ([facility]) [address] [place] [address] 40557 Neutrophils (Bld) [#/Vol] 7.90 x10*3/uL High 1.60-5.50 [facility] Comment on above: Result Comment: Perc ent differential counts (%) should be interpreted in the context of the absolute cell counts (cells/uL). Performed By: #### 5 7021-8 #### KALIN OSBORN ([id number]) [facility] ([facility]) [address] [place] [address] 60274 Neutrophils/100 WBC (Bld) 81.8 % Normal 40.0-80.0 [facility] Comment on above: Performed By: #### 5 7021-8 #### KALIN OSBORN ([id number]) [facility] ([facility]) [address] [place] [address] 22689 Nucleated RBC/100 WBC (Bld) [Ratio] 0.0 /100 WBCs Normal 0.0-0.0 [facility] Comment on above: Performed By: #### 5 7021-8 #### KALIN OSBORN ([id number]) [facility] ([facility]) [address] [place] [address] 79887 Platelets (Bld) [#/Vol] 249 x10*3/uL Normal 150-450 [facility] Comment on above: Performed By: #### 5 7021-8 #### KALIN OSBORN ([id number]) [facility] ([facility]) [address] [place] [address] 46894 RBC (Bld) [#/Vol] 3.79 x10*6/uL Low 4.50-5.90 [facility] Comment on above: Performed By: #### 5 7021-8 #### KALIN OSBORN ([id number]) [facility] ([facility]) [address] [place] [address] 18828 WBC (Bld) [#/Vol] 9.7 x10*3/uL Normal 4.4-11.3 [facility] Comment on above: Performed By: #### 5 7021-8 #### KALIN OSBORN ([id number]) [facility] ([facility]) [address] [place] [address] Comprehensive metabolic 2000 panelon 08-14-2024 Albumin BCP dye [Mass/Vol] 4.0 g/dL Normal 3.4-5.0 [facility] Comment on above: Performed By: #### 2 4323-8 #### KALIN OSBORN ([id number]) [facility] ([facility]) [address] [place] [address] 73477 ALP [Catalytic activity/Vol] 64 U/L Normal 33-136 [facility] Comment on above: Performed By: #### 2 4323-8 #### KALIN OSBORN ([id number]) [facility] ([facility]) [address] [place] [address] 75742 ALT With P-5'-P [Catalytic activity/Vol] 15 U/L Normal 10-52 [facility] Comment on above: Result Comment: Nicolette ents treated with Sulfasalazine may generate falsely decreased results for ALT. Performed By: #### 2 4323-8 #### KALIN OSBORN ([id number]) [facility] ([facility]) [facility] [place] [address] Anion gap [Moles/Vol] 9 mmol/L Low 10-20 [facility] Comment on above: Performed By: #### 2 4323-8 #### KALIN OSBORN ([id number]) [facility] ([facility]) [address] [place] [address] 68596 AST With P-5'-P [Catalytic activity/Vol] 15 U/L Normal 9-39 [facility] Comment on above: Performed By: #### 2 4323-8 #### KALIN OSBORN ([id number]) [facility] ([facility]) [address] [place] [address] 98889 Bilirubin [Mass/Vol] 0.9 mg/dL Normal 0.0-1.2 [facility] Comment on above: Performed By: #### 2 4323-8 #### KALIN OSBORN ([id number]) [facility] ([facility]) [facility] [place] [address] Calcium [Mass/Vol] 8.8 mg/dL Normal 8.6-10.3 [facility] Comment on above: Performed By: #### 2 4323-8 #### KALIN OSBORN ([id number]) [facility] ([facility]) [address] [place] [address] 40101 Chloride [Moles/Vol] 105 mmol/L Normal 98-107 [facility] Comment on above: Performed By: #### 2 4323-8 #### KALIN OSBORN ([id number]) [facility] ([facility]) [address] [place] [address] 56093 CO2 [Moles/Vol] 30 mmol/L Normal 21-32 [facility] Comment on above: Performed By: #### 2 4323-8 #### KALIN OSBORN ([id number]) [facility] ([facility]) [address] [place] [address] 87176 Creatinine [Mass/Vol] 0.91 mg/dL Normal 0.50-1.30 [facility] Comment on above: Performed By: #### 2 4323-8 #### KALIN OSBORN ([id number]) [facility] ([facility]) [address] [place] [address] 15751 Glomerular filtration rate/1.73 sq M.predicted 81 mL/min/1.73m*2 Normal >60 [facility] Comment on above: Result Comment: Calc ulations of estimated GFR are performed using the 2020 CKD-EPI Study Refit equation without the race variable for the IDMS-Traceable creatinine methods. https://jasn.asnjournals.org/content/early//ASN.94131 30572 Performed By: #### 2 4323-8 #### KALIN OSBORN ([id number]) [facility] ([facility]) [address] [place] [address] 32166 Glucose [Mass/Vol] 120 mg/dL High 74-99 [facility] Comment on above: Performed By: #### 2 4323-8 #### KALIN OSBORN ([id number]) [facility] ([facility]) [address] [place] [address] 01646 Potassium [Moles/Vol] 4.2 mmol/L Normal 3.5-5.3 [facility] Comment on above: Performed By: #### 2 4323-8 #### KALIN OSBORN ([id number]) [facility] ([facility]) [address] [place] [address] 76773 Protein [Mass/Vol] 5.5 g/dL Low 6.4-8.2 [facility] Comment on above: Performed By: #### 2 4323-8 #### KALIN OSBORN ([id number]) [facility] ([facility]) [address] [place], [place] [address] Sodium [Moles/Vol] 140 mmol/L Normal 136-145 [facility] Comment on above: Performed By: #### 2 4323-8 #### KALIN OSBORN ([id number]) [facility] ([facility]) [address] [place], [place] [address] Urea nitrogen [Mass/Vol] 22 mg/dL Normal 6-23 [facility] Comment on above: Performed By: #### 2 4323-8 #### KALIN OSBORN ([id number]) [facility] ([facility]) [address] [place], [place] [address] US Heart TransthoracicOrdere d By: Otoniel Salcedo on 07-31-2024 Aortic Valve Area by Continuity of Peak Velocity 2.07 cm2 [facility] Work Phone: Aortic Valve Area by Continuity of VTI 1.83 cm2 [facility] Work Phone: AV mn grad 6.0 mmHg [facility] Work Phone: AV pk grad 10.6 mmHg [facility] Work Phone: AV pk neetu 1.63 m/s [facility] Work Phone: LA vol index A/L 18.0 ml/m2 [facility] Work Phone: LV A4C EF 61.1 [facility] Work Phone: LV Biplane EF 62 % [facility] Work Phone: LV EF 62 % [facility] Work Phone: LVIDd 4.18 cm [facility] Work Phone: LVOT diam 1.90 cm [facility] Work Phone: MV E/A ratio 0.76 [facility] Work Phone: RV free wall pk S' 12.80 cm/s [facility] Work Phone: RVSP 27.6 mmHg [facility] Work Phone: Tricuspid annular plane systolic excursion 2.5 cm [facility] Work Phone: [facility] Work Phone: Heart [place] [address] ext-2528, TRANSTHORACIC ECHOCARDIOGRAM REPORT Patient Name: FAWN Lee Physician: [id number] Otoniel Salcedo MD Study Date: 07/31/2024 Ordering Provider: Fab SALCEDO MRN/PID: [id number] Fellow: Nurse: Clemente Brown RN Date of /Age: 5 1935 / 89 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 Gender: M Additional Staff: Height: 167.64 cm Admit Date: Weight: 67.59 kg Admission Status: Outpatient BSA / BMI: 1.76 m2 / 24.05 Department Location: [facility] Echo Lab kg/m2 Blood Pressure: 112 /65 mmHg Study Type: TRANSTHORACIC ECHO (TTE) COMPLETE Diagnosis/ICD: Personal history of transient ischemic attack (TIA), 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 Gender: M Additional Staff: Height: 167.64 cm Admit Date: Weight: 67.59 kg Admission Status: Outpatient BSA / BMI: 1.76 m2 / 24.05 Department Location: [facility] Echo Lab kg/m2 Blood Pressure: 112 /65 mmHg Study Type: TRANSTHORACIC ECHO (TTE) COMPLETE Diagnosis/ICD: Personal history of transient ischemic attack (TIA), 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 CPT Codes: Echo Complete w Full Doppler-68532 Study Detail: The following Echo studies were [...] LA Area A2C: 13.2 cm2 LA Major Stella A4C: 4.6 cm LA Major Stella A2C: 4.7 cm LA Volume Index: 16.0 [...] RV Syst Pressure: 28 mmHg (< 30mmHg) [id number] Otoniel Salcedo MD Electronically signed on 07/31/2024 at 9:32:31 AM Final [facility] Work Phone: US.doppler Aorta and Iliac a rtery - bilateralon 06-17-2024 [place] [address] ext-2528, Vascular Lab Report VASC US AORTA ILIAC DUPLEX COMPLETE Patient Name: FAWN CAMERON Reading Physician: [id number] Miller Abdalla MD, RPVI Study Date: 06/17/2024 Ordering Provider: [id number] DON BARRERA MRN/PID: [id number] Fellow: Technologist: Annamaria Cornejo RVT/AB Date of /Age: 5 1935 / 89 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: Gender: M Admission Status: Outpatient Location Performed: [facility] Diagnosis/ICD: Abdominal aortic aneurysm, without rupture, unspecified-I71.40 CPT Codes: 27303 Duplex Aorta/IVC/Iliac/Bypass Graft CONCLUSIONS: Aorta/Common Iliac Arteries/IVC: [...] Proximal 1.40 cm 1.30 cm 142.00 cm/s [id number] Miller Abdalla MD, SILVANA Final SYNGO Miller Abdalla MD - 06/17/2024 [place] [address] ext-[phone], Vascular Lab Report VASC US AORTA ILIAC DUPLEX COMPLETE Patient Name: FAWN Lee Physician: [id number] Miller Abdalla MD, SILVANA Study Date: 06/17/2024 Ordering Provider: [id number] DON BARRERA MRN/PID: [id number] Fellow: Technologist: Annamaria Cornejo RVT/ Date of /Age: 5 1935 / 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: Gender: M Admission Status: Outpatient Location Performed: [facility] Diagnosis/ICD: Abdominal aortic aneurysm, without rupture, unspecified-I71.40 CPT Codes: 78600 Duplex Aorta/IVC/Iliac/Bypass Graft CONCLUSIONS: Aorta/Common Iliac Arteries/IVC: [...] Proximal 1.40 cm 1.30 cm 142.00 cm/s 11447 Miller Abdalla MD, RPLUIS Final [facility] Work Phone: Radiology Study observation (narrative) [facility] Work Phone: US.doppler Aorta and Iliac a rtery - bilateralOrdered By: Miller Abdalla on 06-17-2024 [facility] Work Phone: OCT MACULA CIRRUS OU (BOTH E YES)on 03-05-2024 [facility] Radiology Study observation (narrative) [facility] CBC W Auto Differential pane l (Bld)on 12-07-2023 Basophils (Bld) [#/Vol] 0.06 10*3/uL [facility] Basophils/100 WBC (Bld) 0.6 % 0.0 - 2.0 % [facility] Eosinophils (Bld) [#/Vol] 0.11 10*3/uL [facility] Eosinophils/100 WBC (Bld) 1.0 % 0.0 - 6.0 % [facility] Erythrocyte distribution width (RBC) [Ratio] 12.9 % 11.5 - 14.5 % [facility] Hematocrit (Bld) [Volume fraction] 44.5 % 41.0 - 52.0 % [facility] Hemoglobin (Bld) [Mass/Vol] 14.8 g/dL 13.5 - 17.5 g/dL [facility] Immature granulocytes (Bld) [#/Vol] 0.06 10*3/uL [facility] Immature granulocytes/100 WBC (Bld) 0.6 % 0.0 - 0.9 % [facility] Comment on above: Immature Granulocyte Count (IG) includes promyelocytes, myelocytes and metamyelocytes but does not include bands. Percent differential counts (%) should be interpreted in the context of the absolute cell counts (cells/UL). Interpretation and review of laboratory results Abnormal [facility] Lymphocytes (Bld) [#/Vol] 0.97 10*3/uL [facility] Lymphocytes/100 WBC (Bld) 9.2 % 13.0 - 44.0 % [facility] MCH (RBC) [Entitic mass] 33.8 pg 26.0 - 34.0 pg [facility] MCHC (RBC) [Mass/Vol] 33.3 g/dL 32.0 - 36.0 g/dL [facility] MCV (RBC) [Entitic vol] 102 fL High 80 - 100 fL [facility] Monocytes (Bld) [#/Vol] 0.87 10*3/uL High [facility] Monocytes/100 WBC (Bld) 8.3 % 2.0 - 10.0 % [facility] Neutrophils (Bld) [#/Vol] 8.44 10*3/uL High [facility] Comment on above: Percent differential counts (%) should be interpreted in the context of the absolute cell counts (cells/uL). Neutrophils/100 WBC (Bld) 80.3 % 40.0 - 80.0 % [facility] Nucleated RBC/100 WBC (Bld) [Ratio] 0.0 % [facility] Platelets (Bld) [#/Vol] 298 10*3/uL [facility] RBC (Bld) [#/Vol] 4.38 10*6/uL Low [facility] WBC (Bld) [#/Vol] 10.5 10*3/uL [facility] Comprehensive metabolic 2000 panelon 12-07-2023 Albumin BCP dye [Mass/Vol] 4.4 g/dL 3.4 - 5.0 g/dL [facility] ALP [Catalytic activity/Vol] 76 U/L 33 - 136 U/L [facility] ALT With P-5'-P [Catalytic activity/Vol] 15 U/L 10 - 52 U/L [facility] Comment on above: Patients treated wit h Sulfasalazine may generate falsely decreased results for ALT. Anion gap [Moles/Vol] 13 mmol/L 10 - 2 0 mmol/L [facility] AST With P-5'-P [Catalytic activity/Vol] 17 U/L 9 - 39 U/L [facility] Bilirubin [Mass/Vol] 0.6 mg/dL 0.0 - 1 .2 mg/dL [facility] Calcium [Mass/Vol] 8.9 mg/dL 8.6 - 10. 3 mg/dL [facility] Chloride [Moles/Vol] 102 mmol/L 98 - 10 7 mmol/L [facility] CO2 [Moles/Vol] 24 mmol/L 21 - 32 mmol/L [facility] Creatinine [Mass/Vol] 0.93 mg/dL 0.50 - 1.30 mg/dL [facility] GFR/1.73 sq M.predicted among non-blacks MDRD (S/P/Bld) [Vol rate/Area] 79 mL/min/{1.73_m2} - PINF [facility] Comment on above: Calculations of leonides mated GFR are performed using the 2020 CKD-EPI Study Refit equation without the race variable for the IDMS-Traceable creatinine methods. https://jasn.asnjournals.org/content/early/ASN.01221 28818 Glucose [Mass/Vol] 96 mg/dL 74 - 99 mg/dL [facility] Interpretation and review of laboratory results Abnormal [facility] Potassium [Moles/Vol] 3.9 mmol/L 3.5 - 5.3 mmol/L [facility] Protein [Mass/Vol] 6.6 g/dL 6.4 - 8.2 g/dL [facility] Sodium [Moles/Vol] 135 mmol/L Low 136 - 145 mmol/L [facility] Urea nitrogen [Mass/Vol] 22 mg/dL 6 - 23 mg/dL [facility] MR Brain WO contraston 12-07 No acute infarct, intracranial mass effect or midline shift. 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 I personally reviewed the images/study and I agree with the findings as stated by Dr. Cabrera. MACRO: None Signed by: Kvng Meléndez 12/07/2023 12:24 PM Dictation workstation: [id number] Interpreted By: Kvng Proctor and Muddasani Dheeraj STUDY: MR BRAIN WO IV CONTRAST; 12/07/2023 11:21 am INDICATION: Signs/Symptoms:dizzine ss. COMPARISON: CT of the head 11/15/2023. MRI of the brain 01/25/2021. ACCESSION NUMBER(S): [id number] ORDERING CLINICIAN: CELSO CABEZAS TECHNIQUE: Noncontrast axial [...] MRI of the brain 01/25/2021. ACCESSION NUMBER(S): [id number] ORDERING CLINICIAN: CELSO CABEZAS TECHNIQUE: Noncontrast axial [...] Kvng Meléndez 12/07/2023 12:24 PM Dictation workstation: [id number] [facility] Work Phone: Radiology Study observation (narrative) [facility] Work Phone: MR Brain WO contrastOrdered By: Kvng Meléndez on 12-07-2023 [facility] Work Phone: Tropinin I.cardiac panel Hig h sensitivity methodon 12-07-2023 Interpretation and review of laboratory results Normal [facility] Less than 99th percentile of normal [...] performed using a different testing methodology at [facility] than at other [facility]. Direct result comparisons should only be made within the same method. [facility] Troponin I, High Sensitivity on 12-07-2023 Tropinin I.cardiac panel High sensitivity method 6 ng/L 0 - 20 ng/L [facility] Urinalysis complete W Reflex Culture panel (U)Ordered By: Erica Villa on 12-07-2023 Appearance (U) Clear Clear [facility] Bilirubin (U) [Mass/Vol] Negative NEGATIVE [facility] Color (U) Straw Straw, Yellow [facility] Glucose Auto test strip (U) [Mass/Vol] Negative NEGATIVE mg/dL [facility] Interpretation and review of laboratory results Normal [facility] Ketones (U) [Mass/Vol] Negative NEGAT DERRELL mg/dL [facility] Leukocyte esterase Auto test strip Ql (U) Negative NEGATIVE [facility] Nitrite Auto test strip Ql (U) Negative NEGATIVE [facility] pH (U) 7.0 [pH] 5.0, 5.5, 6.0, 6.5, 7.0, 7.5, 8.0 [facility] Protein (U) [Mass/Vol] Negative NEGAT DERRELL mg/dL [facility] RBC (U) [#/Vol] Negative NEGATIVE [facility] Specific gravity (U) [Rel density] 1.006 1.005 - 1.035 [facility] Urobilinogen (U) [Mass/Vol] mg/dL NINF - 2.0 mg/dL [facility] CBC W Auto Differential pane l (Bld)on 11-15-2023 Basophils (Bld) [#/Vol] 0.04 10*3/uL [facility] Basophils/100 WBC (Bld) 0.5 % 0.0 - 2.0 % [facility] Eosinophils (Bld) [#/Vol] 0.13 10*3/uL [facility] Eosinophils/100 WBC (Bld) 1.7 % 0.0 - 6.0 % [facility] Erythrocyte distribution width (RBC) [Ratio] 12.7 % 11.5 - 14.5 % [facility] Hematocrit (Bld) [Volume fraction] 41.2 % 41.0 - 52.0 % [facility] Hemoglobin (Bld) [Mass/Vol] 13.8 g/dL 13.5 - 17.5 g/dL [facility] Immature granulocytes (Bld) [#/Vol] 0.02 10*3/uL [facility] Immature granulocytes/100 WBC (Bld) 0.3 % 0.0 - 0.9 % [facility] Comment on above: Immature Granulocyte Count (IG) includes promyelocytes, myelocytes and metamyelocytes but does not include bands. Percent differential counts (%) should be interpreted in the context of the absolute cell counts (cells/UL). Interpretation and review of laboratory results Abnormal [facility] Lymphocytes (Bld) [#/Vol] 1.09 10*3/uL [facility] Lymphocytes/100 WBC (Bld) 14.2 % 13.0 - 44.0 % [facility] MCH (RBC) [Entitic mass] 33.8 pg 26.0 - 34.0 pg [facility] MCHC (RBC) [Mass/Vol] 33.5 g/dL 32.0 - 36.0 g/dL [facility] MCV (RBC) [Entitic vol] 101 fL High 80 - 100 fL [facility] Monocytes (Bld) [#/Vol] 0.60 10*3/uL [facility] Monocytes/100 WBC (Bld) 7.8 % 2.0 - 10.0 % [facility] Neutrophils (Bld) [#/Vol] 5.77 10*3/uL High [facility] Comment on above: Percent differential counts (%) should be interpreted in the context of the absolute cell counts (cells/uL). Neutrophils/100 WBC (Bld) 75.5 % 40.0 - 80.0 % [facility] Nucleated RBC/100 WBC (Bld) [Ratio] 0.0 % [facility] Platelets (Bld) [#/Vol] 202 10*3/uL [facility] Comment on above: Platelet count verif ied by smear review. RBC (Bld) [#/Vol] 4.08 10*6/uL [facility] WBC (Bld) [#/Vol] 7.7 10*3/uL [facility] CT Head WO contraston 2023 No evidence of acute cortical infarct or intracranial hemorrhage. No evidence of intracranial hemorrhage or displaced skull fracture. MACRO: None Signed by: Gera Grove 11/15/2023 5:02 PM Dictation workstation: [id number] Interpreted By: Gera Grove, STUDY: CT HEAD WO IV CONTRAST; 11/15/2023 4:58 pm INDICATION: Signs/Symptoms:foggy/d maría. COMPARISON: 03/10/2023 ACCESSION NUMBER(S): [id number] ORDERING CLINICIAN: BHARGAVI FELICIANO TECHNIQUE: Noncontrast axial [...] INDICATION: Signs/Symptoms:foggy/d maría. COMPARISON: 03/10/2023 ACCESSION NUMBER(S): [id number] ORDERING CLINICIAN: BHARGAVI FELICIANO TECHNIQUE: Noncontrast axial [...] Gera Grove 11/15/2023 5:02 PM Dictation workstation: [id number] [facility] Work Phone: Radiology Study observation (narrative) [facility] Work Phone: CT Head WO contrastOrdered B y: Gera Grove on 11-15-2023 [facility] Work Phone: Comprehensive metabolic 2000 panelon 11-15-2023 Albumin BCP dye [Mass/Vol] 4.4 g/dL 3.4 - 5.0 g/dL [facility] ALP [Catalytic activity/Vol] 69 U/L 33 - 136 U/L [facility] ALT With P-5'-P [Catalytic activity/Vol] 14 U/L 10 - 52 U/L [facility] Comment on above: Patients treated wit h Sulfasalazine may generate falsely decreased results for ALT. Anion gap [Moles/Vol] 11 mmol/L 10 - 2 0 mmol/L [facility] AST With P-5'-P [Catalytic activity/Vol] 19 U/L 9 - 39 U/L [facility] Bilirubin [Mass/Vol] 0.7 mg/dL 0.0 - 1 .2 mg/dL [facility] Calcium [Mass/Vol] 8.8 mg/dL 8.6 - 10. 3 mg/dL [facility] Chloride [Moles/Vol] 106 mmol/L 98 - 10 7 mmol/L [facility] CO2 [Moles/Vol] 26 mmol/L 21 - 32 mmol/L [facility] Creatinine [Mass/Vol] 0.91 mg/dL 0.50 - 1.30 mg/dL [facility] GFR/1.73 sq M.predicted among non-blacks MDRD (S/P/Bld) [Vol rate/Area] 82 mL/min/{1.73_m2} - PINF [facility] Comment on above: Calculations of leonides mated GFR are performed using the 2020 CKD-EPI Study Refit equation without the race variable for the IDMS-Traceable creatinine methods. https://jasn.asnjournals.org/content/early//ASN.15310 76641 Glucose [Mass/Vol] 90 mg/dL 74 - 99 mg/dL [facility] Interpretation and review of laboratory results Abnormal [facility] Potassium [Moles/Vol] 4.1 mmol/L 3.5 - 5.3 mmol/L [facility] Protein [Mass/Vol] 6.3 g/dL Low 6.4 - 8.2 g/dL [facility] Sodium [Moles/Vol] 139 mmol/L 136 - 145 mmol/L [facility] Urea nitrogen [Mass/Vol] 18 mg/dL 6 - 23 mg/dL [facility] Glucose Test strip manual (B ld) [Mass/Vol]on 11-15-2023 Glucose [Mass/Vol] 96 mg/dL 74 - 99 mg/dL [facility] Interpretation and review of laboratory results Normal [facility] Influenza virus A and B and SARS-CoV-2 (COVID-19) identified DONY+probe Nom (Resp)on 11-15-2023 FLUAV RNA DONY+probe Ql (Resp) Not detected Not Detected [facility] FLUBV RNA DONY+probe Ql (Resp) Not detected Not Detected [facility] Interpretation and review of laboratory results Normal [facility] SARS-CoV-2 (COVID-19) RNA DONY+probe Ql (Resp) Not detected Not Detected [facility] This assay has received FDA Emergency [...] and has been validated for use at [facility]. Negative results do not preclude COVID-19 infections or Influenza A/B infections, and should not be used as the sole basis for diagnosis, treatment, or other management decisions. If Influenza A/B and RSV PCR results are negative, testing for Parainfluenza virus, Adenovirus and Metapneumovirus is routinely performed for [facility] pediatric oncology and intensive care inpatients, and is available on other patients by placing an add-on request. [facility] Magnesiumon 11-15-2023 Magnesium [Mass/Vol] 1.95 mg/dL 1.60 - 2.40 mg/dL [facility] Magnesium [Mass/Vol]on 11-15 Interpretation and review of laboratory results Normal [facility] No Panel Informationon 11-15 [facility] Interpretation and review of laboratory results Normal [facility] PT Coag (PPP) [Time]on 11-15 INR Coag (PPP) [Relative time] 1.1 {INR} 0.9 - 1.1 [facility] Protime-INRon 11-15-2023 PT Coag (PPP) [Time] 12.0 s [facility] Tropinin I.cardiac panel Hig h sensitivity methodon 11-15-2023 Interpretation and review of laboratory results Normal [facility] Less than 99th percentile of normal [...] performed using a different testing methodology at [facility] than at other [facility]. Direct result comparisons should only be made within the same method. [facility] Interpretation and review of laboratory results Normal [facility] Less than 99th percentile of normal [...] performed using a different testing methodology at [facility] than at other [facility]. Direct result comparisons should only be made within the same method. [facility] Troponin I, High Sensitivity , Initialon 11-15-2023 Tropinin I.cardiac panel High sensitivity method 4 ng/L 0 - 20 ng/L [facility] Troponin, High Sensitivity, 1 Houron 11-15-2023 Tropinin I.cardiac panel High sensitivity method 5 ng/L 0 - 20 ng/L [facility] Urinalysis complete W Reflex Culture panel (U)on 11-15-2023 Appearance (U) Clear Clear [facility] Bilirubin (U) [Mass/Vol] Negative NEGATIVE [facility] Color (U) Straw Straw, Yellow [facility] Glucose Auto test strip (U) [Mass/Vol] Negative NEGATIVE mg/dL [facility] Interpretation and review of laboratory results Normal [facility] Ketones (U) [Mass/Vol] Negative NEGAT DERRELL mg/dL [facility] Leukocyte esterase Auto test strip Ql (U) Negative NEGATIVE [facility] Nitrite Auto test strip Ql (U) Negative NEGATIVE [facility] pH (U) 7.0 [pH] 5.0, 5.5, 6.0, 6.5, 7.0, 7.5, 8.0 [facility] Protein (U) [Mass/Vol] Negative NEGAT DERRELL mg/dL [facility] RBC (U) [#/Vol] Negative NEGATIVE [facility] Specific gravity (U) [Rel density] 1.005 1.005 - 1.035 [facility] Urobilinogen (U) [Mass/Vol] mg/dL NINF - 2.0 mg/dL [facility] XR Chest Single viewon 11-15 1. No evidence of acute cardiopulmonary process. Signed by: Aung Julien 11/15/2023 5:18 PM Dictation workstation: [id number] MMODAL Interpreted By: Aung Julien, STUDY: XR CHEST 1 VIEW; 11/15/2023 5:06 pm INDICATION: Signs/Symptoms:Chest Pain. COMPARISON: Chest radiograph 11/11/2023 ACCESSION NUMBER(S): [id number] ORDERING CLINICIAN: BHARGAVI FELICIANO FINDINGS: CARDIOMEDIASTINAL SILHOUETTE: Cardiomediastinal silhouette is normal in size and configuration. LUNGS: No consolidation, pneumothorax, or significant effusion. ABDOMEN: No remarkable upper abdominal findings. BONES: No acute osseous changes. [facility] MMODAL Aung Julien MD - 11/15/2023 Interpreted By: Aung Julien, STUDY: XR CHEST 1 VIEW; 11/15/2023 5:06 pm INDICATION: Signs/Symptoms:Chest Pain. COMPARISON: Chest radiograph 11/11/2023 ACCESSION NUMBER(S): [id number] ORDERING CLINICIAN: BHARGAVI FELICIANO FINDINGS: CARDIOMEDIASTINAL SILHOUETTE: Cardiomediastinal silhouette is normal in size and configuration. LUNGS: No consolidation, pneumothorax, or significant effusion. ABDOMEN: No remarkable upper abdominal findings. BONES: No acute osseous changes. IMPRESSION: 1. No evidence of acute cardiopulmonary process. Signed by: Aung Julien 11/15/2023 5:18 PM Dictation workstation: [id number] [facility] Work Phone: Radiology Study observation (narrative) [facility] Work Phone: XR Chest Single viewOrdered By: Aung Julien on 11-15-2023 [facility] Work Phone: aPTTon 11-15-2023 aPTT Coag (PPP) [Time] 29 [facility] a[facility] Coag (PPP) [Time]on The APTT is no longe r used for monitoring Unfractionated Heparin Therapy. For monitoring Heparin Therapy, use the Heparin Assay. [facility] Basic metabolic 2000 panelon 11-11-2023 Anion gap [Moles/Vol] 12 mmol/L 10 - 2 0 mmol/L [facility] Calcium [Mass/Vol] 9.0 mg/dL 8.6 - 10. 3 mg/dL [facility] Chloride [Moles/Vol] 105 mmol/L 98 - 10 7 mmol/L [facility] CO2 [Moles/Vol] 26 mmol/L 21 - 32 mmol/L [facility] Creatinine [Mass/Vol] 0.98 mg/dL 0.50 - 1.30 mg/dL [facility] GFR/1.73 sq M.predicted among non-blacks MDRD (S/P/Bld) [Vol rate/Area] 75 mL/min/{1.73_m2} - PINF [facility] Comment on above: Calculations of leonides mated GFR are performed using the 2020 CKD-EPI Study Refit equation without the race variable for the IDMS-Traceable creatinine methods. https://jasn.asnjournals.org/content//ASN.87447 82729 Glucose [Mass/Vol] 117 mg/dL High 74 - 99 mg/dL [facility] Interpretation and review of laboratory results Abnormal [facility] Potassium [Moles/Vol] 3.8 mmol/L 3.5 - 5.3 mmol/L [facility] Sodium [Moles/Vol] 139 mmol/L 136 - 145 mmol/L [facility] Urea nitrogen [Mass/Vol] 22 mg/dL 6 - 23 mg/dL [facility] CBC W Auto Differential pane l (Bld)on 11-11-2023 Basophils (Bld) [#/Vol] 0.05 10*3/uL [facility] Basophils/100 WBC (Bld) 0.7 % 0.0 - 2.0 % [facility] Eosinophils (Bld) [#/Vol] 0.26 10*3/uL [facility] Eosinophils/100 WBC (Bld) 3.4 % 0.0 - 6.0 % [facility] Erythrocyte distribution width (RBC) [Ratio] 13.1 % 11.5 - 14.5 % [facility] Hematocrit (Bld) [Volume fraction] 41.7 % 41.0 - 52.0 % [facility] Hemoglobin (Bld) [Mass/Vol] 13.9 g/dL 13.5 - 17.5 g/dL [facility] Immature granulocytes (Bld) [#/Vol] 0.03 10*3/uL [facility] Immature granulocytes/100 WBC (Bld) 0.4 % 0.0 - 0.9 % [facility] Comment on above: Immature Granulocyte Count (IG) includes promyelocytes, myelocytes and metamyelocytes but does not include bands. Percent differential counts (%) should be interpreted in the context of the absolute cell counts (cells/UL). Interpretation and review of laboratory results Abnormal [facility] Lymphocytes (Bld) [#/Vol] 1.32 10*3/uL [facility] Lymphocytes/100 WBC (Bld) 17.3 % 13.0 - 44.0 % [facility] MCH (RBC) [Entitic mass] 33.6 pg 26.0 - 34.0 pg [facility] MCHC (RBC) [Mass/Vol] 33.3 g/dL 32.0 - 36.0 g/dL [facility] MCV (RBC) [Entitic vol] 101 fL High 80 - 100 fL [facility] Monocytes (Bld) [#/Vol] 0.85 10*3/uL High [facility] Monocytes/100 WBC (Bld) 11.2 % 2.0 - 10.0 % [facility] Neutrophils (Bld) [#/Vol] 5.11 10*3/uL [facility] Comment on above: Percent differential counts (%) should be interpreted in the context of the absolute cell counts (cells/uL). Neutrophils/100 WBC (Bld) 67.0 % 40.0 - 80.0 % [facility] Nucleated RBC/100 WBC (Bld) [Ratio] 0.0 % [facility] Platelets (Bld) [#/Vol] 242 10*3/uL [facility] RBC (Bld) [#/Vol] 4.14 10*6/uL [facility] WBC (Bld) [#/Vol] 7.6 10*3/uL [facility] Natriuretic peptide B [Mass/ Vol]on 11-11-2023 Interpretation and review of laboratory results Abnormal [facility] Natriuretic peptide B (Bld) [Mass/Vol] 108 pg/mL High 0 - 99 pg/mL [facility] <100 pg/mL - Heart failure unlikely 100-299 pg/mL - Intermediate probability of acute heart failure exacerbation. Correlate with clinical context and patient history. >=300 pg/mL - Heart Failure likely. Correlate with clinical context and patient history. BNP testing is performed using different testing methodology at [facility] than at other [facility]. Direct result comparisons should only be made within the same method. [facility] No Panel Informationon 11-11 [facility] Tropinin I.cardiac panel Hig h sensitivity methodon 11-11-2023 Interpretation and review of laboratory results Normal [facility] Less than 99th percentile of normal [...] performed using a different testing methodology at [facility] than at other [facility]. Direct result comparisons should only be made within the same method. [facility] Troponin I, High Sensitivity on 11-11-2023 Tropinin I.cardiac panel High sensitivity method 5 ng/L 0 - 20 ng/L [facility] Urinalysis complete W Reflex Culture panel (U)on 11-11-2023 Appearance (U) Clear Clear [facility] Bilirubin (U) [Mass/Vol] Negative NEGATIVE [facility] Color (U) Straw Straw, Yellow [facility] Glucose Auto test strip (U) [Mass/Vol] Negative NEGATIVE mg/dL [facility] Interpretation and review of laboratory results Normal [facility] Ketones (U) [Mass/Vol] Negative NEGAT DERRELL mg/dL [facility] Leukocyte esterase Auto test strip Ql (U) Negative NEGATIVE [facility] Nitrite Auto test strip Ql (U) Negative NEGATIVE [facility] pH (U) 6.0 [pH] 5.0, 5.5, 6.0, 6.5, 7.0, 7.5, 8.0 [facility] Protein (U) [Mass/Vol] Negative NEGAT DERRELL mg/dL [facility] RBC (U) [#/Vol] Negative NEGATIVE [facility] Specific gravity (U) [Rel density] 1.013 1.005 - 1.035 [facility] Urobilinogen (U) [Mass/Vol] mg/dL NINF - 2.0 mg/dL [facility] XR Chest Single viewon 11-11 No acute cardiopulmonary process. MACRO: None Signed by: Wanda Montalvo 11/11/2023 9:44 PM Dictation workstation: [id number] MM[facility]AL Interpreted By: Wanda Montalvo, STUDY: XR CHEST 1 VIEW; 11/11/2023 9:29 pm INDICATION: Signs/Symptoms:General ized weakness. COMPARISON: Chest x-ray 09/23/2022 ACCESSION NUMBER(S): [id number] ORDERING CLINICIAN: SAI MYERS FINDINGS: CARDIOMEDIASTINAL SILHOUETTE: [...] weakness. COMPARISON: Chest x-ray 09/23/2022 ACCESSION NUMBER(S): [id number] ORDERING CLINICIAN: SAI MYERS FINDINGS: CARDIOMEDIASTINAL SILHOUETTE: Cardiac silhouette is borderline enlarged. Atherosclerotic calcification of the aorta. LUNGS: No consolidation, pleural effusion or pneumothorax. ABDOMEN: Oral contrast noted in the visualized colon. 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 IMPRESSION: No acute cardiopulmonary process. MACRO: None Signed by: Wanda Montalvo 11/11/2023 9:44 PM Dictation workstation: [id number] [facility] Work Phone: Radiology Study observation (narrative) [facility] Work Phone: XR Chest Single viewOrdered By: Wanda Montalvo on 11-11-2023 [facility] Work Phone: RF Esophagus Views W barium contrast Julito 11-06-2023 1. Small to moderate sized sliding hiatal hernia and gastroesophageal reflux. 2. Minimal esophageal dysmotility noted. Signed by: João Zamora 11/06/2023 12:10 PM Dictation workstation: [id number] Interpreted By: João Zamora, STUDY: FL GI ESOPHAGRAM; 11/06/2023 9:01 am INDICATION: Signs/Symptoms:Hiatal hernia, dysphagia. COMPARISON: None. ACCESSION NUMBER(S): [id number] ORDERING CLINICIAN: DAYSI ARENAS TECHNIQUE: Initial [employer] radiograph of the esophagus was obtained. Multiple fluoroscopic spot images were obtained after the administration of effervescent crystals and 100 mL of barium contrast. The patient tolerated the procedure well. Fluoroscopic time was 1.8 minutes. FINDINGS: Initial [employer] image is grossly unremarkable. Fluoroscopic images demonstrate [...] Signs/Symptoms:Hiatal hernia, dysphagia. COMPARISON: None. ACCESSION NUMBER(S): [id number] ORDERING CLINICIAN: DAYSI ARENAS TECHNIQUE: Initial [employer] radiograph of the esophagus was obtained. Multiple fluoroscopic spot images were obtained after the administration of effervescent crystals and 100 mL of barium contrast. The patient tolerated the procedure well. Fluoroscopic time was 1.8 minutes. FINDINGS: Initial [employer] image is grossly unremarkable. Fluoroscopic images demonstrate [...] João Zamora 11/06/2023 12:10 PM Dictation workstation: [id number] [facility] Work Phone: Radiology Study observation (narrative) [facility] Work Phone: RF Esophagus Views W barium contrast POOrdered By: João Zamora on 11-06-2023 [facility] Work Phone: Skin prepon 10-24-2023 Prepped for avulsion [facility] POCT UA (nonautomated w/o mi croscopy) manually resultedon 10-06-2023 Appearance (U) Clear Clear [facility] Work Phone: Glucose Test strip (U) [Mass/Vol] Negative NEGATIVE mg/dl [facility] Work Phone: Hemoglobin Ql (U) TRACE-Intact Abnormal NEGATIVE Unive [facility] Work Phone: Interpretation and review of laboratory results Abnormal [facility] Work Phone: Leukocyte esterase Test strip Ql (U) Negative NEGATIVE [facility] Work Phone: Nitrite Ql (U) Negative NEGATIVE [facility] Work Phone: pH (U) 7.0 [pH] No Reference Range Established [facility] Work Phone: POC Bilirubin, Urine Negative NEGATIVE Univ [facility] Work Phone: POC Color, Urine Yellow Straw, Yellow, Light-Yellow [facility] Work Phone: POC Ketones, Urine Negative NEGATIVE mg/dl [facility] Work Phone: POC Protein, Urine Negative NEGATIVE, 30 (1+) mg/dl [facility] Work Phone: POC Specific Pella, Urine 1.015 1.005 - 1.035 [facility] Work Phone: POC Urobilinogen, Urine 0.2 0.2, 1.0 EU/DL [facility] Work Phone: [facility] Work Phone: Measure post void residualon 09-17-2023 36cc [facility] Work Phone: [facility] Work Phone: Basic metabolic 2000 panelon 07-23-2023 Anion gap [Moles/Vol] 13 mmol/L 10 - 2 0 mmol/L [facility] Calcium [Mass/Vol] 8.5 mg/dL Low 8.6 - 10. 3 mg/dL [facility] Chloride [Moles/Vol] 108 mmol/L High 98 - 10 7 mmol/L [facility] CO2 [Moles/Vol] 23 mmol/L 21 - 32 mmol/L [facility] Creatinine [Mass/Vol] 0.86 mg/dL 0.50 - 1.30 mg/dL [facility] GFR/1.73 sq M.predicted MDRD (S/P/Bld) [Vol rate/Area] 84 mL/min/{1.73_m2} - PINF [facility] Comment on above: Calculations of leonides mated GFR are performed using the 2020 CKD-EPI Study Refit equation without the race variable for the IDMS-Traceable Creatinine Methods. https://jasn.asnjournals.org/content/early//ASN.19514 55622 Glucose [Mass/Vol] 92 mg/dL 74 - 99 mg/dL [facility] Interpretation and review of laboratory results Abnormal [facility] Potassium [Moles/Vol] 3.8 mmol/L 3.5 - 5.3 mmol/L [facility] Sodium [Moles/Vol] 140 mmol/L 136 - 145 mmol/L [facility] Urea nitrogen [Mass/Vol] 20 mg/dL 6 - 23 mg/dL [facility] Magnesiumon 07-23-2023 Magnesium [Mass/Vol] 1.66 mg/dL 1.60 - 2.40 mg/dL [facility] Magnesium [Mass/Vol]on 07-23 Interpretation and review of laboratory results Normal [facility] CBC W Auto Differential pane l (Bld)on 07-22-2023 Basophils (Bld) [#/Vol] 0.05 10*3/uL [facility] Basophils/100 WBC (Bld) 0.5 % 0.0 - 2.0 % [facility] Eosinophils (Bld) [#/Vol] 0.15 10*3/uL [facility] Eosinophils/100 WBC (Bld) 1.5 % 0.0 - 6.0 % [facility] Erythrocyte distribution width (RBC) [Ratio] 13.7 % 11.5 - 14.5 % [facility] Hematocrit (Bld) [Volume fraction] 38.7 % Low 41.0 - 52.0 % [facility] Hemoglobin (Bld) [Mass/Vol] 13.1 g/dL Low 13.5 - 17.5 g/dL [facility] Immature granulocytes (Bld) [#/Vol] 0.06 10*3/uL [facility] Immature granulocytes/100 WBC (Bld) 0.6 % 0.0 - 0.9 % [facility] Comment on above: Immature Granulocyte Count (IG) includes promyelocytes, myelocytes and metamyelocytes but does not include bands. Percent differential counts (%) should be interpreted in the context of the absolute cell counts (cells/UL). Interpretation and review of laboratory results Abnormal [facility] Lymphocytes (Bld) [#/Vol] 0.89 10*3/uL [facility] Lymphocytes/100 WBC (Bld) 8.9 % 13.0 - 44.0 % [facility] MCH (RBC) [Entitic mass] 34.0 pg 26.0 - 34.0 pg [facility] MCHC (RBC) [Mass/Vol] 33.9 g/dL 32.0 - 36.0 g/dL [facility] MCV (RBC) [Entitic vol] 101 fL High 80 - 100 fL [facility] Monocytes (Bld) [#/Vol] 0.90 10*3/uL High [facility] Monocytes/100 WBC (Bld) 9.0 % 2.0 - 10.0 % [facility] Neutrophils (Bld) [#/Vol] 7.97 10*3/uL High [facility] Comment on above: Percent differential counts (%) should be interpreted in the context of the absolute cell counts (cells/uL). 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) TIA (transient ischemic attack) (435.9) (G45.9) Hyperlipidemia, unspecified hyperlipidemia type (272.4) (E78.5) Orders Peripheral arterial occlusive disease IO EKG Electrocardiogram- 12 Lead; Status:Complete; Done: [id number] Chief Complaint CAD History of Present [id number] gentleman with a medical history of coronary [...] thigh (719.45) (M25.552) [place]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 Consent was given by the patient. [facility] Work Phone: [facility] Work Phone: ABD AORTAon 05-10-2023 US ABD AORTA Patient Name: FAWN CAMERON STUDY: US ABD AORTA; 05/10/2023 8:22 am INDICATION: known AAA, monitoring for change. COMPARISON: 04/28/2022 ACCESSION NUMBER(S): [id number] ORDERING CLINICIAN: DON BARRERA TECHNIQUE: Transabdominal imaging [...] worsened. Electronically signed by: FRANKIE BOWLES MD [facility] C-REACTIVE PROTEINon 023 C-REACTIVE PROTEIN 0.18 mg/dL [facility] Comment on above: Result Comment: REF VALUE < 1.00 Performed By: #### C RP ####[address] [address] CBC AND DIFFERENTIALon 03-10 % AUTOMATED IMMATURE GRAN 0.4 % Normal 0.0 - 0.9 [facility] Comment on above: Result Comment: Steph ture Granulocyte Count (IG) includes promyelocytes, myelocytes and metamyelocytes but does not include bands. Percent differential counts (%) should be interpreted in the context of the absolute cell counts (cells/L). Performed By: #### C BCDF #### [address] [address] Basophils (Bld) [#/Vol] 0.06 10*3/uL Normal 0.00 - 0.10 [facility] Comment on above: Performed By: #### C BCDF #### [address] [address] Basophils/100 WBC (Bld) 0.7 % Normal 0.0 - 2.0 [facility] Comment on above: Performed By: #### C BCDF #### [address] [address] Eosinophils (Bld) [#/Vol] 0.08 10*3/uL Normal 0.00 - 0.40 [facility] Comment on above: Performed By: #### C BCDF #### [address] [address] Eosinophils/100 WBC (Bld) 1.0 % Normal 0.0 - 6.0 [facility] Comment on above: Performed By: #### C BCDF #### [address] [address] Erythrocyte distribution width (RBC) [Ratio] 14.0 % Normal 11.5 - 14.5 [facility] Comment on above: Performed By: #### C BCDF #### [address] [address] Hematocrit (Bld) [Volume fraction] 42.4 % Normal 41.0 - 52.0 [facility] Comment on above: Performed By: #### C BCDF #### [address] [address] Hemoglobin (Bld) [Mass/Vol] 14.0 g/dL Normal 13.5 - 17.5 [facility] Comment on above: Performed By: #### C BCDF #### [address] [address] Lymphocytes (Bld) [#/Vol] 0.94 10*3/uL Normal 0.80 - 3.00 [facility] Comment on above: Performed By: #### C BCDF #### [address] [address] Lymphocytes/100 WBC (Bld) 11.4 % Normal 13.0 - 44.0 [facility] Comment on above: Performed By: #### C BCDF #### [address] [address] MCHC (RBC) [Mass/Vol] 33.0 g/dL Normal 32.0 - 36.0 [facility] Comment on above: Performed By: #### C BCDF #### [address] [address] MCV (RBC) [Entitic vol] 99 fL Normal 80 - 100 [facility] Comment on above: Performed By: #### C BCDF #### [address] [address] Monocytes (Bld) [#/Vol] 0.67 10*3/uL Normal 0.05 - 0.80 [facility] Comment on above: Performed By: #### C BCDF #### [address] [address] Monocytes/100 WBC (Bld) 8.1 % Normal 2.0 - 10.0 [facility] Comment on above: Performed By: #### C BCDF #### [address] [address] Neutrophils (Bld) [#/Vol] 6.48 10*3/uL High 1.60 - 5.50 [facility] Comment on above: Result Comment: Perc ent differential counts (%) should be interpreted in the context of the absolute cell counts (cells/L). Performed By: #### C BCDF #### [address] [address] Neutrophils/100 WBC (Bld) 78.4 % Normal 40.0 - 80.0 [facility] Comment on above: Performed By: #### C BCDF #### [address] [address] Platelets (Bld) [#/Vol] 253 10*3/uL Normal 150 - 450 [facility] Comment on above: Performed By: #### C BCDF #### [address] [address] RBC 4.29 x10E12/L Low 4.50 - 5.90 [facility] Comment on above: Performed By: #### C BCDF #### [address] [address] WBC (Bld) [#/Vol] 8.3 10*3/uL Normal 4.4 - 11.3 [facility] Comment on above: Performed By: #### C BCDF #### [address] [address] COMPREHENSIVE PANELon 2022 Albumin [Mass/Vol] 4.1 g/dL Normal 3.4 - 5.0 [facility] Comment on above: Performed By: #### C MP #### [address] [address] ALP [Catalytic activity/Vol] 78 U/L Normal 33 - 136 [facility] Comment on above: Performed By: #### C MP #### [address] [address] ALT [Catalytic activity/Vol] 15 U/L Normal 10 - 52 [facility] Comment on above: Result Comment: Nicolette ents treated with Sulfasalazine may generate falsely decreased results for ALT. Performed By: #### C MP #### [address] [address] Anion gap [Moles/Vol] 11 mmol/L Normal 10 - 20 [facility] Comment on above: Performed By: #### C MP #### [address] [address] AST [Catalytic activity/Vol] 17 U/L Normal 9 - 39 [facility] Comment on above: Performed By: #### C MP #### [address] [address] Bilirubin [Mass/Vol] 0.6 mg/dL Normal 0.0 - 1.2 [facility] Comment on above: Performed By: #### C MP #### [address] [address] Calcium [Mass/Vol] 8.9 mg/dL Normal 8.6 - 10.3 [facility] Comment on above: Performed By: #### C MP #### [address] [address] Chloride [Moles/Vol] 106 mmol/L Normal 98 - 107 [facility] Comment on above: Performed By: #### C MP #### [address] [address] Creatinine [Mass/Vol] 0.89 mg/dL Normal 0.50 - 1.30 [facility] Comment on above: Performed By: #### C MP #### [address] [address] GFR/1.73 sq M.predicted among non-blacks MDRD (S/P/Bld) [Vol rate/Area] 83 mL/min/{1.73_m2} Normal >90 [facility] Comment on above: Result Comment: CALC ULATIONS OF ESTIMATED GFR ARE PERFORMED USING THE 2020 CKD-EPI STUDY REFIT EQUATION WITHOUT THE RACE VARIABLE FOR THE IDMS-TRACEABLE CREATININE METHODS. https://jasn.asnjournals.org/content//ASN.00893 [address] Performed By: #### C MP #### [address] [address] Glucose [Mass/Vol] 104 mg/dL High 74 - 99 [facility] Comment on above: Performed By: #### C MP #### [address] [address] HCO3 (Bld) [Moles/Vol] 25 mmol/L Normal 21 - 32 [facility] Comment on above: Performed By: #### C MP #### [address] [address] Potassium [Moles/Vol] 4.1 mmol/L Normal 3.5 - 5.3 [facility] Comment on above: Performed By: #### C MP #### [address] [address] Protein [Mass/Vol] 6.3 g/dL Low 6.4 - 8.2 [facility] Comment on above: Performed By: #### C MP #### [address] [address] Sodium [Moles/Vol] 138 mmol/L Normal 136 - 145 [facility] Comment on above: Performed By: #### C MP #### [address] [address] Urea nitrogen [Mass/Vol] 18 mg/dL Normal 6 - 23 [facility] Comment on above: Performed By: #### C MP #### [address] [address] CREATINE KINASEon 03-10-2023 CK [Catalytic activity/Vol] 68 U/L Normal 0 - 325 [facility] Comment on above: Performed By: #### C K #### [address] [address] [address] HEAD WO CONTRASTon 2022 CT HEAD WO CONTRAST Patient Name: FAWN CAMERON STUDY: CT HEAD WO CONTRAST 03/10/2023 1:10 pm INDICATION: stable COMPARISON: CT head dated 01/07/2021 ACCESSION NUMBER(S): [id number] ORDERING CLINICIAN: EARLE COTTO TECHNIQUE: Contiguous axial [...] Electronically signed by: JOÃO ZAMORA MD Normal Merged [facility] GLUCOSE-POCTon 03-10-2023 Glucose [Mass/Vol] 98 mg/dL Normal 74 - 99 [facility] Comment on above: Performed By: #### G ROBIN #### [address] [address] LACTATEon 03-10-2023 Lactate [Moles/Vol] 1.1 mmol/L Normal 0.4 - 2.0 [facility] Comment on above: Result Comment: Cha puncture immediately after or during the administration of Metamizole may lead to falsely low results. Testing should be performed immediately prior to Metamizole dosing. 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 Normal Merged [facility] Risk Screen - Adult Emergenc yon 03-10-2023 Risk Screen - Adult Emergency Preferred Language: Preferred Language: Preferred Language for Discussing Health Care (patient/designee)Rafiq green Patient Preferred Pharmacy: Patient Preferred Pharmacy Statement: [...] instruction; written material Cultural Considerationsnone Developmental Considerationsnone Bahai Considerationsnone Other Learnersspouse Learning Assessment (Other Learner): Learning Assessment (Other Learner): Other learner availableyes... Learnerspouse Factors Influencing Readiness to Learnn/a Factors that Impact Ability to Learnnone Devices/Methods Used to Communicatenone Learning Preferencesverbal instruction Cultural Considerationsnone Developmental Considerationsnone Bahai Considerationsnone Pressure Injury/TB/Substance: Pressure Injury: Do you have a coughno Smoking Statusformer smoker Alcohol Usedenies Drug Usedenies Admission Risk Screen: Significant IndicatorsComplete CAGE: CAGE: Is this an injured patient at a Trauma Center ([facility]/[place]/[facility]/[place]): no Electronic Signatures: Jaci Soto (ANNA) (Signed 10-Mar-2023 12:55) Authored: Preferred Language, Patient Preferred Pharmacy, Advanced Directives, Family Violence Adult, Learning Assessment (Patient), Learning Assessment (Other Learner), Pressure Injury/TB/Substance, Pressure Injury, CAGE Last Updated: 10-Mar-2023 12:55 by Jaci Soto (ANNA) Normal Merg[facility] TROPONIN I, HIGH SENSITIVITY on 03-10-2023 TROPONIN I, HIGH SENSITIVITY 4 ng/L Normal 0 - 20 [facility] Comment on above: Result Comment: . [...] performed using a different testing methodology at [facility] than at other system hospitals. Direct result comparisons should only be made within the same method. Performed By: #### [facility] #### [facility] [address] [id number] Triage - EDon 03-10-2023 Triage - ED Chart Review: PRIMARY ASSESSMENT ABCD Normal Findings: airway open and patent, circulation normal and alert and oriented ARRIVAL INFORMATION Means of Arrival: wheelchair Mode of Arrival: private vehicle Arrival From: home Accompanied By: spouse/significant other Language: Spoken Language Preferred: Indian Reading Language Preferred: Indian Present on Arrival: Device Present on Arrival to ED: no CHIEF COMPLAINT FAWN CAMERON is a Male patient with a chief complaint of 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 (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 [...] BMI (kg/m2): 25.738 Calculated BSA (m2) 1.83 [place] Coma Scale: Best Eye Response: (E4) spontaneous Best Motor Response: (M6) obeys commands Best Verbal Response: (V5) oriented [place] Score: 15 Allergies: no Patient has homicidal [...] patient cognitively impaired not cognitively impaired Interventions: Sabina Fall Interventions: LOW INTERVENTIONS: *patient oriented to [...] Last Updated: 10-Mar-2023 12:52 by Jaci Soto (RN) [facility] Office Visit (Primary Care T xt/Forms)on 10-27-2022 [...] cancer screening Prostate Spec.Ag, Screen; Status:Active; Requested for:[id number]; Hyperlipidemia, unspecified hyperlipidemia type Lipid Panel; Status:Active; Requested for:[id number]; Hypertension, unspecified type Comprehensive Metabolic Panel; Status:Active; Requested for:[id number]; Patient Discussion/Summary Follow-up in 6 months with [...] thigh (719.45) (M25.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..] dye [Mass/Vol] 4.1 g/dL 3.4 - 5.0 [facility] Work Phone: ALP [Catalytic activity/Vol] 85 U/L 33 - 136 [facility] Work Phone: ALT With P-5'-P [Catalytic activity/Vol] 15 U/L 10 - 52 [facility] Work Phone: Comment on above: Patients treated wit h Sulfasalazine may generate falsely decreased results for ALT. Anion gap [Moles/Vol] 12 mmol/L 10 - 20 [facility] Work Phone: AST With P-5'-P [Catalytic activity/Vol] 20 U/L 9 - 39 -[facility] Work Phone: Bilirubin [Mass/Vol] 0.8 mg/dL 0.0 - 1.2 - [facility] Work Phone: Calcium [Mass/Vol] 9.0 mg/dL 8.6 - 10.3 [facility] Work Phone: Chloride [Moles/Vol] 106 mmol/L 98 - 107 - [facility] Work Phone: CO2 [Moles/Vol] 26 mmol/L 21 - 32 [facility] Work Phone: Creatinine [Mass/Vol] 0.99 mg/dL See Below - [facility] Work Phone: Comment on above: Reference Range: 0.5 0 - 1.30 Glucose [Mass/Vol] 91 mg/dL 74 - 99 [facility] Work Phone: Potassium [Moles/Vol] 3.9 mmol/L 3.5 - 5.3 - [facility] Work Phone: Protein [Mass/Vol] 6.3 g/dL below low threshold 6.4 - 8.2 -[facility] Work Phone: Sodium [Moles/Vol] 140 mmol/L 136 - 145 -[facility] Work Phone: Urea nitrogen [Mass/Vol] 24 mg/dL above high threshold 6 - 23 -[facility] Work Phone: No Panel Informationon 10-24 74 {mL/min/1.73m2} >90 -[facility] ical [facility] Work Phone: Comment on above: CALCULATIONS OF LEONIDES MATED GFR ARE PERFORMED USING THE 2020 CKD-EPI STUDY REFIT EQUATION WITHOUT THE RACE VARIABLE FOR THE IDMS-TRACEABLE CREATININE METHODS.https://jasn.asnjournals.org/content//A SN.2483222048 Complete Blood Count + Diffe john 10-03-2022 Basophils/100 WBC (Bld) 0.6 % 0.0 - 2.0 [facility] Work Phone: Erythrocyte distribution width (RBC) [Ratio] 14.1 % See Below [facility] Work Phone: Comment on above: Reference Range: 11. 5 - 14.5 Hematocrit (Bld) [Volume fraction] 41.7 % See Below [facility] Work Phone: Comment on above: Reference Range: 41. 0 - 52.0 Hemoglobin (Bld) [Mass/Vol] 13.6 g/dL See Below [facility] Work Phone: Comment on above: Reference Range: 13. 5 - 17.5 Lymphocytes/100 WBC (Bld) 8.5 % See Below [facility] Work Phone: Comment on above: Reference Range: 13. 0 - 44.0 MCHC (RBC) [Mass/Vol] 32.6 g/dL See Below [facility] Work Phone: Comment on above: Reference Range: 32. 0 - 36.0 MCV (RBC) [Entitic vol] 101 fL above high threshold 80 - 100 [facility] Work Phone: Monocytes/100 WBC (Bld) 8.5 % 2.0 - 10.0 [facility] Work Phone: Neutrophils/100 WBC (Bld) 79.6 % See Below [facility] Work Phone: Comment on above: Reference Range: 40. 0 - 80.0 Platelets (Bld) [#/Vol] 249 10*3/uL 150 - 450 [facility] Work Phone: RBC (Bld) [#/Vol] 4.15 {x10E12/L} below low threshold See Below [facility] Work Phone: Comment on above: Reference Range: 4.5 0 - 5.90 WBC (Bld) [#/Vol] 9.7 10*3/uL 4.4 - 11.3 [facility] Work Phone: Complete Blood Count + Differential 0.06 {x10E9/L} See Below [facility] Work Phone: Comment on above: Reference Range: 0.0 0 - 0.10 Complete Blood Count + Differential 0.21 {x10E9/L} See Below [facility] Work Phone: Comment on above: Reference Range: 0.0 0 - 0.40 Complete Blood Count + Differential 0.83 {x10E9/L} See Below [facility] Work Phone: Comment on above: Reference Range: 0.0 5 - 0.80 Reference Range: 0.8 0 - 3.00 Complete Blood Count + Differential 7.72 {x10E9/L} above high threshold See Below [facility] Work Phone: Comment on above: Reference Range: 1.6 0 - 5.50 Percent differential counts (%) should be interpreted in the context of the absolute cell counts (cells/L). Complete Blood Count + Differential 2.2 % 0.0 - 6.0 [facility] Work Phone: Complete Blood Count + Differential 0.6 % 0.0 - 0.9 [facility] Work Phone: Comment on above: Immature Granulocyte Count (IG) includes promyelocytes, myelocytes and metamyelocytes but does not include bands. Percent differential counts (%) should be interpreted in the context of the absolute cell counts (cells/L). Laboratory - Chemistry and C hemistry - challengeon 10-03-2022 Albumin BCP dye [Mass/Vol] 3.8 g/dL 3.4 - 5.0 [facility] Work Phone: ALP [Catalytic activity/Vol] 92 U/L 33 - 136 [facility] Work Phone: ALT With P-5'-P [Catalytic activity/Vol] 14 U/L 10 - 52 [facility] Work Phone: Comment on above: Patients treated wit h Sulfasalazine may generate falsely decreased results for ALT. Anion gap [Moles/Vol] 10 mmol/L 10 - 20 [facility] Work Phone: AST With P-5'-P [Catalytic activity/Vol] 15 U/L 9 - 39 [facility] Work Phone: Bilirubin [Mass/Vol] 0.6 mg/dL 0.0 - 1.2 [facility] Work Phone: Calcium [Mass/Vol] 8.5 mg/dL below low threshold 8.6 - 10.3 [facility] Work Phone: Chloride [Moles/Vol] 106 mmol/L 98 - 107 [facility] Work Phone: CO2 [Moles/Vol] 27 mmol/L 21 - 32 -Medica l [facility] Work Phone: Creatinine [Mass/Vol] 0.91 mg/dL See Below [facility] Work Phone: Comment on above: Reference Range: 0.5 0 - 1.30 Glucose [Mass/Vol] 96 mg/dL 74 - 99 [facility] ical [facility] Work Phone: Potassium [Moles/Vol] 4.1 mmol/L 3.5 - 5.3 [facility] Work Phone: Protein [Mass/Vol] 5.8 g/dL below low threshold 6.4 - 8.2 [facility] Work Phone: Sodium [Moles/Vol] 139 mmol/L 136 - 145 [facility] Work Phone: Urea nitrogen [Mass/Vol] 21 mg/dL 6 - 23 [facility] Work Phone: No Panel Informationon 10-03 82 {mL/min/1.73m2} >90 [facility] Work Phone: Comment on above: CALCULATIONS OF LEONIDES MATED GFR ARE PERFORMED USING THE 2020 CKD-EPI STUDY REFIT EQUATION WITHOUT THE RACE VARIABLE FOR THE IDMS-TRACEABLE CREATININE METHODS.https://jasn.asnjournals.org/content//A SN.7587803107 CHEST 2 VIEW PA AND LATon CHEST 2 VIEW PA AND LAT STUDY: Chest Radiographs; 09/23/2022 9:39 AM INDICATION: Cough for two weeks status post COVID 09/01. COMPARISON: Chest, single portable view obtained on 04/11/2018 at 08:52:00 hours. ACCESSION NUMBER(S): [id number] ORDERING CLINICIAN: HEIKE ADAMS CNP TECHNIQUE: Frontal [...] MD Electronically signed by: RUSSELL COLEMAN MD [facility] Provider Note - ED v3on 12-0 Provider [...] SIGNS: T PRBP SpO2O2(LPM) %FiO2 Method 23-Sep-2022 08:31:[id number] [facility] MDM/ED COURSE: Discussed Findings with: patient Data [...] ill patient: no Electronic Signatures: Heike Adams ([employer]) (Signed 23-Sep-2022 10:09) Authored: ED Notes, HPI, PMH, ROS, PE, Results/Vital Signs, MDM/ED Course, Clinical Impression, Attestation, Chart Review, Scores Last Updated: 23-Sep-2022 10:09 by Daniella (more content not included)... Normal Merged [facility] Tobacco Screening.on Fall risk assessment a) No falls within the last year [facility] [address] Work Phone: Tobacco use status [facility] b) No [facility]- [address] Work Phone: IO UA (automated w/o microsc opy)on 05-17-2022 Protein (U) [Mass/Vol] Negative [facility] -[facility]- [address] Work Phone: IO UA (automated w/o microscopy) Negative [facility]- [address] Work Phone: IO UA (automated w/o microscopy) Normal (0.2-1.0 mg/dl) MP-Cardio logy- [address] Work Phone: IO UA (automated w/o microscopy) 5.0 1 [facility]- [address] Work Phone: IO UA (automated w/o microscopy) 1.020 1 [facility]- [address] Work Phone: IO UA (automated w/o microscopy) Clear [facility]- [address] Work Phone: IO UA (automated w/o microscopy) Yellow [facility]- [address] Work Phone: Tobacco Screening.on Adult depression screening assessment No [facility]-Cardiolo gy- [address] Work Phone: Fall risk assessment a) No falls within the last year [facility]- [address] Work Phone: Tobacco use status [facility] b) No [facility]- [address] Work Phone: Tobacco Screening.on Adult depression screening assessment No [facility] Work Phone: Fall risk assessment a) No falls within the last year -[facility] Work Phone: Tobacco use status [facility] b) No [facility] Work Phone: Complete Blood Count + Diffe john 04-21-2022 Basophils/100 WBC (Bld) 1.0 % 0.0 - 2.0 [facility] Work Phone: Erythrocyte distribution width (RBC) [Ratio] 14.3 % See Below [facility] Work Phone: Comment on above: Reference Range: 11. 5 - 14.5 Hematocrit (Bld) [Volume fraction] 38.2 % below low threshold See Below [facility] Work Phone: Comment on above: Reference Range: 41. 0 - 52.0 Hemoglobin (Bld) [Mass/Vol] 12.9 g/dL below low threshold See Below [facility] Work Phone: Comment on above: Reference Range: 13. 5 - 17.5 Lymphocytes/100 WBC (Bld) 19.7 % See Below [facility] Work Phone: Comment on above: Reference Range: 13. 0 - 44.0 MCHC (RBC) [Mass/Vol] 33.9 g/dL See Below [facility] Work Phone: Comment on above: Reference Range: 32. 0 - 36.0 MCV (RBC) [Entitic vol] 99 fL 80 - 100 [facility] Work Phone: Monocytes/100 WBC (Bld) 7.8 % 2.0 - 10.0 [facility] Work Phone: Neutrophils/100 WBC (Bld) 65.9 % See Below [facility] Work Phone: Comment on above: Reference Range: 40. 0 - 80.0 Platelets (Bld) [#/Vol] 251 10*3/uL 150 - 450 [facility] Work Phone: RBC (Bld) [#/Vol] 3.87 {x10E12/L} below low threshold See Below [facility] Work Phone: Comment on above: Reference Range: 4.5 0 - 5.90 WBC (Bld) [#/Vol] 7.0 10*3/uL 4.4 - 11.3 [facility] Work Phone: Complete Blood Count + Differential 0.10 {x10E9/L} See Below [facility] Work Phone: Comment on above: Reference Range: 0.0 0 - 0.10 Complete Blood Count + Differential 0.40 {x10E9/L} See Below [facility] Work Phone: Comment on above: Reference Range: 0.0 0 - 0.40 Complete Blood Count + Differential 0.60 {x10E9/L} See Below [facility] Work Phone: Comment on above: Reference Range: 0.0 5 - 0.80 Complete Blood Count + Differential 1.40 {x10E9/L} See Below [facility] Work Phone: Comment on above: Reference Range: 0.8 0 - 3.00 Complete Blood Count + Differential 4.60 {x10E9/L} See Below [facility] Work Phone: Comment on above: Reference Range: 1.6 0 - 5.50 Percent differential counts (%) should be interpreted in the context of the absolute cell counts (cells/L). Complete Blood Count + Differential 5.6 % 0.0 - 6.0 [facility] Work Phone: Complete Blood Count + Differential 0.2 {/100_WBC} [facility] Work Phone: Laboratory - Chemistry and C hemistry - challengeon 07-01-2022 Albumin BCP dye [Mass/Vol] 3.8 g/dL 3.4 - 5.0 [facility] Work Phone: ALP [Catalytic activity/Vol] 71 U/L 33 - 136 [facility] Work Phone: ALT With P-5'-P [Catalytic activity/Vol] 13 U/L 10 - 52 [facility] Work Phone: Comment on above: Patients treated wit h Sulfasalazine may generate falsely decreased results for ALT. Anion gap [Moles/Vol] 10 mmol/L 10 - 20 [facility] Work Phone: AST With P-5'-P [Catalytic activity/Vol] 16 U/L 9 - 39 -[facility] Work Phone: Bilirubin [Mass/Vol] 0.8 mg/dL 0.0 - 1.2 - [facility] Work Phone: Calcium [Mass/Vol] 8.5 mg/dL below low threshold 8.6 - 10.3 -[facility] Work Phone: Chloride [Moles/Vol] 110 mmol/L above high threshold 98 - 107 -[facility] Work Phone: CO2 [Moles/Vol] 25 mmol/L 21 - 32 -[facility] Work Phone: Creatinine [Mass/Vol] 0.91 mg/dL See Below - [facility] Work Phone: Comment on above: Reference Range: 0.5 0 - 1.30 Glucose [Mass/Vol] 87 mg/dL 74 - 99 -[facility] Work Phone: Potassium [Moles/Vol] 4.1 mmol/L 3.5 - 5.3 - [facility] Work Phone: Protein [Mass/Vol] 5.5 g/dL below low threshold 6.4 - 8.2 [facility] Work Phone: Sodium [Moles/Vol] 141 mmol/L 136 - 145 -[facility] Work Phone: Urea nitrogen [Mass/Vol] 29 mg/dL above high threshold 6 - 23 [facility] Work Phone: Lipid Panelon 04-21-2022 Cholesterol [Mass/Vol] 127 mg/dL 0 - 199 [facility] Work Phone: Comment on above: . AGE [...] dosing. Cholesterol in HDL [Mass/Vol] 42.0 mg/dL [facility] Work Phone: Comment on above: . AGE VERY LOW LOW N ORMAL HIGH 0-19 Y < 35 < 40 40-45 ---- 20-24 Y ---- < 40 >45 ---- >24 Y ---- < 40 40-60 >60. Cholesterol in LDL [Mass/Vol] 73 mg/dL 0 - 99 [facility] Work Phone: Comment on above: . NEAR BORD AGE CHERYL RABLE OPTIMAL HIGH HIGH VERY HIGH 0-19 Y 0 - 109 --- 110-129 >/= 130 ---- 20-24 Y 0 - 119 --- 120-159 >/= 160 ---- >24 Y 0 - 99 100-129 130-159 160-189 >/=190. Cholesterol.total/Chol esterol in HDL [Mass ratio] 3.0 {ratio} [facility] Work Phone: Comment on above: REF VALUESDESIRABLE < 3.4HIGH RISK > 5.0 Triglyceride [Mass/Vol] 60 mg/dL 0 - 149 [facility] Work Phone: Comment on above: . AGE [...] Lipid Panel 12 mg/dL 0 - 40 [facility] Work Phone: No Panel Informationon 04-21 82 {mL/min/1.73m2} >90 [facility] Work Phone: Comment on above: CALCULATIONS OF LEONIDES MATED GFR ARE PERFORMED USING THE 2020 CKD-EPI STUDY REFIT EQUATION WITHOUT THE RACE VARIABLE FOR THE IDMS-TRACEABLE CREATININE METHODS.https://jasn.asnjournals.org/content//A SN.8515211943 Prostate Spec.Ag, Screenon 0 04-21-2022 Prostate specific Ag [Mass/Vol] 0.29 ng/mL See Below [facility] Work Phone: Comment on above: Reference Range: 0.0 0 - 4.00The FDA requires that the method used for PSA assay be reported to the physician. Values obtained with different assay methods must not be used interchangeably. This testwas performed at [facility] using the Access [employer] PSA assay is a two-site immunoenzymatic sandwich assay. The assay is approved for measurement of prostate-specific antigen (PSA)in serum and may be used in conjunction with a digital rectal examination in men 50 years and older as an aid in detection of prostate cancer.0-Jxkfp-vqqsdbpsx inhibitors (e.g. Proscar, Finasteride, Avodart, Dutasteride and Suzy) for the treatment of BPH have been shown to lower PSA levels by an average of 50% after 6 months of treatment. Vitamin B12, Serumon 022 Cobalamin (Vitamin B12) [Mass/Vol] 686 pg/mL 211 - 911 [facility] Work Phone: Complete Blood Count + Diffe rentialon 03-31-2022 Basophils/100 WBC (Bld) 0.9 % 0.0 - 2.0 [facility] Work Phone: Erythrocyte distribution width (RBC) [Ratio] 14.0 % See Below [facility] Work Phone: Comment on above: Reference Range: 11. 5 - 14.5 Hematocrit (Bld) [Volume fraction] 39.8 % below low threshold See Below [facility] Work Phone: Comment on above: Reference Range: 41. 0 - 52.0 Hemoglobin (Bld) [Mass/Vol] 13.6 g/dL See Below [facility] Work Phone: Comment on above: Reference Range: 13. 5 - 17.5 Lymphocytes/100 WBC (Bld) 15.8 % See Below [facility] Work Phone: Comment on above: Reference Range: 13. 0 - 44.0 MCHC (RBC) [Mass/Vol] 34.3 g/dL See Below [facility] Work Phone: Comment on above: Reference Range: 32. 0 - 36.0 MCV (RBC) [Entitic vol] 98 fL 80 - 100 [facility] Work Phone: Monocytes/100 WBC (Bld) 8.8 % 2.0 - 10.0 [facility] Work Phone: Neutrophils/100 WBC (Bld) 71.4 % See Below [facility] Work Phone: Comment on above: Reference Range: 40. 0 - 80.0 Platelets (Bld) [#/Vol] 266 10*3/uL 150 - 450 [facility] Work Phone: RBC (Bld) [#/Vol] 4.05 {x10E12/L} below low threshold See Below [facility] Work Phone: Comment on above: Reference Range: 4.5 0 - 5.90 WBC (Bld) [#/Vol] 7.3 10*3/uL 4.4 - 11.3 [facility] Work Phone: Complete Blood Count + Differential 0.10 {x10E9/L} See Below [facility] Work Phone: Comment on above: Reference Range: 0.0 0 - 0.10 Complete Blood Count + Differential 0.20 {x10E9/L} See Below [facility] Work Phone: Comment on above: Reference Range: 0.0 0 - 0.40 Complete Blood Count + Differential 0.60 {x10E9/L} See Below [facility] Work Phone: Comment on above: Reference Range: 0.0 5 - 0.80 Complete Blood Count + Differential 1.20 {x10E9/L} See Below [facility] Work Phone: Comment on above: Reference Range: 0.8 0 - 3.00 Complete Blood Count + Differential 5.20 {x10E9/L} See Below [facility] Work Phone: Comment on above: Reference Range: 1.6 0 - 5.50 Percent differential counts (%) should be interpreted in the context of the absolute cell counts (cells/L). Complete Blood Count + Differential 3.1 % 0.0 - 6.0 [facility] Work Phone: Laboratory - Chemistry and C hemistry - challengeon 03-31-2022 Albumin BCP dye [Mass/Vol] 4.1 g/dL 3.4 - 5.0 [facility] [place] [facility] Work Phone: ALP [Catalytic activity/Vol] 80 U/L 33 - 136 [facility] [place] [facility] Work Phone: ALT With P-5'-P [Catalytic activity/Vol] 13 U/L 10 - 52 [facility] [place] [facility] Work Phone: Comment on above: Patients treated wit h Sulfasalazine may generate falsely decreased results for ALT. Anion gap [Moles/Vol] 10 mmol/L 10 - 20 [facility] Work Phone: AST With P-5'-P [Catalytic activity/Vol] 16 U/L 9 - 39 [facility] Work Phone: Bilirubin [Mass/Vol] 0.8 mg/dL 0.0 - 1.2 [facility] Work Phone: Calcium [Mass/Vol] 8.8 mg/dL 8.6 - 10.3 [facility] Work Phone: Chloride [Moles/Vol] 105 mmol/L 98 - 107 [facility] Work Phone: CO2 [Moles/Vol] 27 mmol/L 21 - 32 [facility] Work Phone: Creatinine [Mass/Vol] 0.92 mg/dL See Below [facility] Medical [facility] Work Phone: Comment on above: Reference Range: 0.5 0 - 1.30 Glucose [Mass/Vol] 87 mg/dL 74 - 99 [facility] Work Phone: Potassium [Moles/Vol] 4.1 mmol/L 3.5 - 5.3 - Medical [facility] Work Phone: Protein [Mass/Vol] 5.9 g/dL below low threshold 6.4 - 8.2 [facility] Work Phone: Sodium [Moles/Vol] 138 mmol/L 136 - 145 [facility] Work Phone: Urea nitrogen [Mass/Vol] 23 mg/dL 6 - 23 [facility] Work Phone: No Panel Informationon 03-31 81 {mL/min/1.73m2} >90 [facility] Work Phone: Comment on above: CALCULATIONS OF LEONIDES MATED GFR ARE PERFORMED USING THE 2020 CKD-EPI STUDY REFIT EQUATION WITHOUT THE RACE VARIABLE FOR THE IDMS-TRACEABLE CREATININE METHODS.https://jasn.asnjournals.org/content//A SN.4468679114 Tobacco Screening.on Adult depression screening assessment No [facility] Work Phone: Fall risk assessment a) No falls within the last year [facility] Work Phone: Tobacco use status [facility] b) No [facility] Work Phone: Radiologyon 11-17-2021 XR Femur 2 Views Normal -[facility] Work Phone: Tobacco Screening.on 022 Fall risk assessment a) No falls within the last year [facility] Work Phone: Tobacco use status [facility] b) No [facility] Work Phone: MRI L Spine without Contrast on 10-06-2021 MR Lumbar spine WO contrast Normal [facility] Work Phone: Complete Blood Count + Diffe rentialon 10-04-2021 Basophils/100 WBC (Bld) 0.6 % 0.0 - 2.0 [facility] Work Phone: Erythrocyte distribution width (RBC) [Ratio] 13.9 % See Below [facility] Work Phone: Comment on above: Reference Range: 11. 5 - 14.5 Hematocrit (Bld) [Volume fraction] 40.7 % below low threshold See Below [facility] Work Phone: Comment on above: Reference Range: 41. 0 - 52.0 Hemoglobin (Bld) [Mass/Vol] 13.5 g/dL See Below [facility] Work Phone: Comment on above: Reference Range: 13. 5 - 17.5 Lymphocytes/100 WBC (Bld) 12.1 % See Below [facility] Work Phone: Comment on above: Reference Range: 13. 0 - 44.0 MCHC (RBC) [Mass/Vol] 33.2 g/dL See Below [facility] Work Phone: Comment on above: Reference Range: 32. 0 - 36.0 MCV (RBC) [Entitic vol] 101 fL above high threshold 80 - 100 [facility] Work Phone: Monocytes/100 WBC (Bld) 10.2 % 2.0 - 10.0 [facility] Work Phone: Neutrophils/100 WBC (Bld) 75.1 % See Below [facility] Work Phone: Comment on above: Reference Range: 40. 0 - 80.0 Platelets (Bld) [#/Vol] 251 10*3/uL 150 - 450 [facility] Work Phone: RBC (Bld) [#/Vol] 4.04 {x10E12/L} below low threshold See Below [facility] Work Phone: Comment on above: Reference Range: 4.5 0 - 5.90 WBC (Bld) [#/Vol] 7.1 10*3/uL 4.4 - 11.3 [facility] Work Phone: Complete Blood Count + Differential 0.00 {x10E9/L} See Below [facility] Work Phone: Comment on above: Reference Range: 0.0 0 - 0.10 Complete Blood Count + Differential 0.10 {x10E9/L} See Below [facility] Work Phone: Comment on above: Reference Range: 0.0 0 - 0.40 Complete Blood Count + Differential 0.70 {x10E9/L} See Below [facility] Work Phone: Comment on above: Reference Range: 0.0 5 - 0.80 Complete Blood Count + Differential 0.90 {x10E9/L} See Below [facility] Work Phone: Comment on above: Reference Range: 0.8 0 - 3.00 Complete Blood Count + Differential 5.30 {x10E9/L} See Below [facility] Work Phone: Comment on above: Reference Range: 1.6 0 - 5.50 Percent differential counts (%) should be interpreted in the context of the absolute cell counts (cells/L). Complete Blood Count + Differential 2.0 % 0.0 - 6.0 [facility] Work Phone: Complete Blood Count + Differential 0.1 {/100_WBC} [facility] Work Phone: Laboratory - Chemistry and C hemistry - challengeon 10-04-2021 Albumin BCP dye [Mass/Vol] 3.8 g/dL 3.4 - 5.0 [facility] Work Phone: ALP [Catalytic activity/Vol] 63 U/L 33 - 136 [facility] Work Phone: ALT With P-5'-P [Catalytic activity/Vol] 16 U/L 10 - 52 [facility] Work Phone: Comment on above: Patients treated wit h Sulfasalazine may generate falsely decreased results for ALT. Anion gap [Moles/Vol] 8 mmol/L below low threshold 10 - 20 [facility] Work Phone: AST With P-5'-P [Catalytic activity/Vol] 19 U/L 9 - 39 -[facility] Work Phone: Bilirubin [Mass/Vol] 0.8 mg/dL 0.0 - 1.2 [facility] Work Phone: Calcium [Mass/Vol] 8.6 mg/dL 8.6 - 10.3 -[facility] Work Phone: Chloride [Moles/Vol] 106 mmol/L 98 - 107 [facility] Work Phone: CO2 [Moles/Vol] 28 mmol/L 21 - 32 [facility] Work Phone: Creatinine [Mass/Vol] 0.89 mg/dL See Below - [facility] Work Phone: Comment on above: Reference Range: 0.5 0 - 1.30 Glucose [Mass/Vol] 84 mg/dL 74 - 99 -[facility] Work Phone: Potassium [Moles/Vol] 3.8 mmol/L 3.5 - 5.3 - [facility] Work Phone: Protein [Mass/Vol] 5.7 g/dL below low threshold 6.4 - 8.2 -[facility] Work Phone: Sodium [Moles/Vol] 138 mmol/L 136 - 145 -[facility] Work Phone: Urea nitrogen [Mass/Vol] 23 mg/dL 6 - 23 -[facility] Work Phone: No Panel Informationon 10-04 >60 >60 [facility] Work Phone: Comment on above: CALCULATIONS OF LEONIDES MATED GFR ARE PERFORMED USING THE MDRD STUDY EQUATION FOR THE IDMS-TRACEABLE CREATININE METHODS. CLIN CHEM 2007;53:766-72 Tobacco Screening.on Fall risk assessment a) No falls within the last year [facility] Work Phone: Tobacco use status [facility] b) No [facility] Work Phone: IO UA (automated w/o microsc opy)on 05-18-2021 Protein (U) [Mass/Vol] Negative MP [facility] Work Phone: IO UA (automated w/o microscopy) Negative OT-Hgrkxyy-[facility] Work Phone: IO UA (automated w/o microscopy) Normal (0.2-1.0 mg/dl) [facility]CO-[facility]rolog y[facility] Work Phone: IO UA (automated w/o microscopy) 5.5 1 DS-Chlvqbj-[facility] Work Phone: IO UA (automated w/o microscopy) 1.030 1 DU-Btxjyvm-Wps [facility] Work Phone: IO UA (automated w/o microscopy) Clear AY-Idodapq-Bgp [facility] Work Phone: IO UA (automated w/o microscopy) Yellow PZ-Avmuxqi-Fvx [facility] Work Phone: Tobacco Screening.on Fall risk assessment a) No falls within the last year TY-Jvgnffl[facility] Work Phone: Tobacco use status [facility] b) No SB-Cjajyjy-[facility]jh [facility] Work Phone: LDL, Direct, Serumon Cholesterol in LDL [Mass/Vol] 100 mg/dL 0 - 129 [facility] Work Phone: Comment on above: Elevated levels [...] 3.8 g/dL 3.4 - 5.0 [facility] Work Phone: ALP [Catalytic activity/Vol] 61 U/L 33 - 136 -[facility] Work Phone: ALT With P-5'-P [Catalytic activity/Vol] 19 U/L 10 - 52 -[facility] Work Phone: Comment on above: Patients treated wit h Sulfasalazine may generate falsely decreased results for ALT. Anion gap [Moles/Vol] 11 mmol/L 10 - 20 - [facility] Work Phone: AST With P-5'-P [Catalytic activity/Vol] 19 U/L 9 - 39 -Medical [facility] Work Phone: Bilirubin [Mass/Vol] 0.9 mg/dL 0.0 - 1.2 - edical [facility] Work Phone: Calcium [Mass/Vol] 8.3 mg/dL below low threshold 8.6 - 10.3 -Medical [facility] Work Phone: Chloride [Moles/Vol] 109 mmol/L above high threshold 98 - 107 -Medical [facility] Work Phone: CO2 [Moles/Vol] 25 mmol/L 21 - 32 -Medica l [facility] Work Phone: Creatinine [Mass/Vol] 0.93 mg/dL See Below - [facility] Work Phone: Comment on above: Reference Range: 0.5 0 - 1.30 Glucose [Mass/Vol] 90 mg/dL 74 - 99 -Med [facility] Work Phone: Potassium [Moles/Vol] 3.9 mmol/L 3.5 - 5.3 - [facility] Work Phone: Protein [Mass/Vol] 5.5 g/dL below low threshold 6.4 - 8.2 [facility] Work Phone: Sodium [Moles/Vol] 141 mmol/L 136 - 145 -[facility] Work Phone: Urea nitrogen [Mass/Vol] 26 mg/dL above high threshold 6 - 23 [facility] Work Phone: No Panel Informationon 05-11 >60 >60 [facility] Work Phone: Comment on above: CALCULATIONS OF LEONIDES MATED GFR ARE PERFORMED USING THE MDRD STUDY EQUATION FOR THE IDMS-TRACEABLE CREATININE METHODS. CLIN CHEM 2007;53:766-72 Prostate Spec.Ag, Screenon 0 05-11-2021 Prostate specific Ag [Mass/Vol] 0.25 ng/mL See Below [facility] Work Phone: Comment on above: Reference Range: 0.0 0 - 4.00The FDA requires that the method used for PSA assay be reported to the physician. Values obtained with different assay methods must not be used interchangeably. This testwas performed at [facility] using the [employer] PSA assay is a two-site immunoenzymatic sandwich assay. The assay is approved for measurement of prostate-specific antigen (PSA)in serum and may be used in conjunction with a digital rectal examination in men 50 years and older as an aid in detection of prostate cancer.4-Qlvdr-dbqzockqa inhibitors (e.g. Proscar, Finasteride, Avodart, Dutasteride and Suzy) for the treatment of BPH have been shown to lower PSA levels by an average of 50% after 6 months of treatment. Ultrasound Abdomen Aortaon 0 05-11-[address]21 Ultrasound Abdomen Aorta Normal [facility] Work Phone: Ultrasound Abdomen Aorta Please click on the link to view the study images Normal [facility] Work Phone: ECG [id number] By: Heather Paredes on 07-19-2021 Atrial Rate [facility] P Stella [facility] P-R Interval [facility] Q-T Interval [facility] Q-T Interval (corrected) [facility] QRS Duration [facility] QTC Calculation (Bezet) [facility] R Stella [facility] T Stella [facility] Ventricular Rate [facility] Tobacco Screening.on 021 Fall risk assessment a) No falls within the last year [facility] Work Phone: Tobacco use status [facility] b) No -[facility] Work Phone: Complete Blood Count + Diffe john 04-19-2021 Basophils/100 WBC (Bld) 0.4 % 0.0 - 2.0 [facility] Work Phone: Erythrocyte distribution width (RBC) [Ratio] 13.4 % See Below [facility] Work Phone: Comment on above: Reference Range: 11. 5 - 14.5 Hematocrit (Bld) [Volume fraction] 41.4 % See Below [facility] Work Phone: Comment on above: Reference Range: 41. 0 - 52.0 Hemoglobin (Bld) [Mass/Vol] 13.6 g/dL See Below [facility] Work Phone: Comment on above: Reference Range: 13. 5 - 17.5 Lymphocytes/100 WBC (Bld) 11.6 % See Below [facility] Work Phone: Comment on above: Reference Range: 13. 0 - 44.0 MCHC (RBC) [Mass/Vol] 32.9 g/dL See Below [facility] Work Phone: Comment on above: Reference Range: 32. 0 - 36.0 MCV (RBC) [Entitic vol] 101 fL above high threshold 80 - 100 [facility] Work Phone: Monocytes/100 WBC (Bld) 7.3 % 2.0 - 10.0 [facility] Work Phone: Neutrophils/100 WBC (Bld) 78.9 % See Below [facility] Work Phone: Comment on above: Reference Range: 40. 0 - 80.0 Platelets (Bld) [#/Vol] 214 10*3/uL 150 - 450 [facility] Work Phone: RBC (Bld) [#/Vol] 4.10 {x10E12/L} below low threshold See Below [facility] Work Phone: Comment on above: Reference Range: 4.5 0 - 5.90 WBC (Bld) [#/Vol] 7.2 10*3/uL 4.4 - 11.3 [facility] Work Phone: Complete Blood Count + Differential 0.00 {x10E9/L} See Below [facility] Work Phone: Comment on above: Reference Range: 0.0 0 - 0.10 Complete Blood Count + Differential 0.10 {x10E9/L} See Below [facility] Work Phone: Comment on above: Reference Range: 0.0 0 - 0.40 Complete Blood Count + Differential 0.50 {x10E9/L} See Below [facility] Work Phone: Comment on above: Reference Range: 0.0 5 - 0.80 Complete Blood Count + Differential 0.80 {x10E9/L} See Below [facility] Work Phone: Comment on above: Reference Range: 0.8 0 - 3.00 Complete Blood Count + Differential 5.70 {x10E9/L} above high threshold See Below [facility] Work Phone: Comment on above: Reference Range: 1.6 0 - 5.50 Percent differential counts (%) should be interpreted in the context of the absolute cell counts (cells/L). Complete Blood Count + Differential 1.8 % 0.0 - 6.0 [facility] Work Phone: Complete Blood Count + Differential 0.2 {/100_WBC} [facility] Work Phone: Laboratory - Chemistry and C hemistry - challengeon 04-19-2021 Albumin BCP dye [Mass/Vol] 3.8 g/dL 3.4 - 5.0 [facility] Work Phone: ALP [Catalytic activity/Vol] 64 U/L 33 - 136 -[facility] Work Phone: ALT With P-5'-P [Catalytic activity/Vol] 23 U/L 10 - 52 [facility] Work Phone: Comment on above: Patients treated wit h Sulfasalazine may generate falsely decreased results for ALT. Anion gap [Moles/Vol] 10 mmol/L 10 - 20 [facility] Medical [facility] Work Phone: AST With P-5'-P [Catalytic activity/Vol] 21 U/L 9 - 39 -Medical [facility] Work Phone: Bilirubin [Mass/Vol] 0.7 mg/dL 0.0 - 1.2 [facility] [employer] [facility] Work Phone: Calcium [Mass/Vol] 8.6 mg/dL 8.6 - 10.3 [facility] ical [facility] Work Phone: Chloride [Moles/Vol] 106 mmol/L 98 - 107 [facility] edical [facility] Work Phone: CO2 [Moles/Vol] 25 mmol/L 21 - 32 -Medica l [facility] Work Phone: Creatinine [Mass/Vol] 0.94 mg/dL See Below [facility] Medical [facility] Work Phone: Comment on above: Reference Range: 0.5 0 - 1.30 Glucose [Mass/Vol] 152 mg/dL above high threshold 74 - 99 [facility] Work Phone: Potassium [Moles/Vol] 3.8 mmol/L 3.5 - 5.3 - [facility] Work Phone: Protein [Mass/Vol] 5.6 g/dL below low threshold 6.4 - 8.2 [facility] Work Phone: Sodium [Moles/Vol] 137 mmol/L 136 - 145 [employer] [facility] Work Phone: Urea nitrogen [Mass/Vol] 22 mg/dL 6 - 23 -[facility] Work Phone: No Panel Informationon 04-19 >60 >60 [employer]Medical [facility] Work Phone: Comment on above: CALCULATIONS OF LEONIDES MATED GFR ARE PERFORMED USING THE MDRD STUDY EQUATION FOR THE IDMS-TRACEABLE CREATININE METHODS. CLIN CHEM 2007;53:766-72 Laboratory - Chemistry and C hemistry - challengeon 04-13-2021 Albumin BCP dye [Mass/Vol] 3.8 g/dL 3.4 - 5.0 [facility] Work Phone: ALP [Catalytic activity/Vol] 68 U/L 33 - 136 [facility]Pr[facility] Work Phone: ALT With P-5'-P [Catalytic activity/Vol] 27 U/L 10 - 52 [facility] Work Phone: Comment on above: Patients treated wit h Sulfasalazine may generate falsely decreased results for ALT. Anion gap [Moles/Vol] 9 mmol/L below low threshold 10 - 20 [employer]Medical [facility] Work Phone: AST With P-5'-P [Catalytic activity/Vol] 23 U/L 9 - 39 [facility] Work Phone: Bilirubin [Mass/Vol] 0.8 mg/dL 0.0 - 1.2 [facility] Work Phone: Calcium [Mass/Vol] 8.6 mg/dL 8.6 - 10.3 -Med [facility] Work Phone: Chloride [Moles/Vol] 107 mmol/L 98 - 107 -M [facility] Work Phone: CO2 [Moles/Vol] 27 mmol/L 21 - 32 [facility] Work Phone: Creatinine [Mass/Vol] 0.92 mg/dL See Below - [facility] Work Phone: Comment on above: Reference Range: 0.5 0 - 1.30 Glucose [Mass/Vol] 88 mg/dL 74 - 99 [employer] [facility] Work Phone: Potassium [Moles/Vol] 4.0 mmol/L 3.5 - 5.3 [facility] Work Phone: Protein [Mass/Vol] 5.6 g/dL below low threshold 6.4 - 8.2 -[facility] Work Phone: Sodium [Moles/Vol] 139 mmol/L 136 - 145 [employer] [facility] Work Phone: Urea nitrogen [Mass/Vol] 29 mg/dL above high threshold 6 - 23 [facility] Work Phone: Lipid Panelon 04-13-2020 Cholesterol [Mass/Vol] 135 mg/dL 0 - 199 -Medical [facility] Work Phone: Comment on above: . AGE [...] Cholesterol in HDL [Mass/Vol] 37.0 mg/dL Abnormal [employer] [facility] Work Phone: Comment on above: . AGE VERY LOW LOW N ORMAL HIGH 0-19 Y < 35 < 40 40-45 ---- 20-24 Y ---- < 40 >45 ---- >24 Y ---- < 40 40-60 >60. Cholesterol in LDL [Mass/Vol] 80 mg/dL 0 - 99 [employer] [facility] Work Phone: Comment on above: . NEAR BORD AGE CHERYL RABLE OPTIMAL HIGH HIGH VERY HIGH 0-19 Y 0 - 109 --- 110-129 >/= 130 ---- 20-24 Y 0 - 119 --- 120-159 >/= 160 ---- >24 Y 0 - 99 100-129 130-159 160-189 >/=190. Cholesterol.total/Chol esterol in HDL [Mass ratio] 3.6 {ratio} [employer] [facility] Work Phone: Comment on above: REF VALUESDESIRABLE < 3.4HIGH RISK > 5.0 Triglyceride [Mass/Vol] 90 mg/dL 0 - 149 [employer] [facility] Work Phone: Comment on above: . AGE [...] Lipid Panel 18 mg/dL 0 - 40 [employer] [facility] Work Phone: No Panel Informationon 04-13 >60 >60 [employer] [facility] Work Phone: Comment on above: CALCULATIONS OF LEONIDES MATED GFR ARE PERFORMED USING THE MDRD STUDY EQUATION FOR THE IDMS-TRACEABLE CREATININE METHODS. CLIN CHEM 2007;53:766-72 Complete Blood Count + Diffe john 03-31-2020 Basophils (Bld) [#/Vol] 0.10 {x10E9/L} See Below [facility] Work Phone: Comment on above: Reference Range: 0.0 0 - 0.10 Ordering Provider: Yony Pollack Basophils/100 WBC (Bld) 0.8 % 0.0 - 2.0 [facility] Work Phone: Comment on above: Ordering Provider: Yony DEE Pollack Eosinophils (Bld) [#/Vol] 0.20 {x10E9/L} See Below [facility]ENTERMiew [facility] Work Phone: Comment on above: Reference Range: 0.0 0 - 0.40 Ordering Provider: Yony Pollack Eosinophils/100 WBC (Bld) 2.8 % 0.0 - 6.0 [place] [facility] Work Phone: Comment on above: Ordering Provider: Yony DEE Pollack Erythrocyte distribution width (RBC) [Ratio] 13.5 % See Below [place] [facility] Work Phone: Comment on above: Reference Range: 11. 5 - 14.5 Ordering Provider: Yony Pollack Hematocrit (Bld) [Volume fraction] 41.2 % See Below [facility] Work Phone: Comment on above: Reference Range: 41. 0 - 52.0 Ordering Provider: Yony DEE Pollack Hemoglobin (Bld) [Mass/Vol] 13.8 g/dL See Below [facility] Work Phone: Comment on above: Reference Range: 13. 5 - 17.5 Ordering Provider: Yony BATES [id number] Lymphocytes (Bld) [#/Vol] 1.10 {x10E9/L} See Below -Medical [facility] Work Phone: Comment on above: Reference Range: 0.8 0 - 3.00 Ordering Provider: Yony DEE Pollack Lymphocytes/100 WBC (Bld) 16.6 % See Below [facility] Work Phone: Comment on above: Reference Range: 13. 0 - 44.0 Ordering Provider: Yony DEE BATES [id number] MCHC (RBC) [Mass/Vol] 33.4 g/dL See Below [facility] Work Phone: Comment on above: Reference Range: 32. 0 - 36.0 Ordering Provider: Yony DEE BATES [id number] MCV (RBC) [Entitic vol] 99 fL 80 - 100 [facility] Work Phone: Comment on above: Ordering Provider: Yony DEE BATES [id number] Monocytes (Bld) [#/Vol] 0.50 {x10E9/L} See Below [facility] Work Phone: Comment on above: Reference Range: 0.0 5 - 0.80 Ordering Provider: Yony DEE BATES [id number] Monocytes/100 WBC (Bld) 7.4 % 2.0 - 10.0 [facility] Work Phone: Comment on above: Ordering Provider: Yony DEE BATES [id number] Neutrophils (Bld) [#/Vol] 4.70 {x10E9/L} See Below [facility] Work Phone: Comment on above: Reference Range: 1.6 0 - 5.50 Percent differential counts (%) should be interpreted in the context of the absolute cell counts (cells/L). Ordering Provider: Yony DEE BATES [id number] Neutrophils/100 WBC (Bld) 72.4 % See Below [facility] Work Phone: Comment on above: Reference Range: 40. 0 - 80.0 Ordering Provider: Yony DEE BUENROSTRODER [id number] Platelets (Bld) [#/Vol] 252 {x10E9/L} 150 - 450 [facility] Work Phone: Comment on above: Ordering Provider: Yony Pollack RBC (Bld) [#/Vol] 4.16 {x10E12/L} below low threshold See Below [facility] Work Phone: Comment on above: Reference Range: 4.5 0 - 5.90 Ordering Provider: Yony Pollack WBC (Bld) [#/Vol] 6.5 {x10E9/L} 4.4 - 11.3 [facility] Work Phone: Comment on above: Ordering Provider: Yony Pollack WBC (Bld) [#/Vol] 0.1 {/100_WBC} [facility] Work Phone: Comment on above: Ordering Provider: Yony Pollack Lipid Panelon 03-31-2020 Cholesterol [Mass/Vol] 147 mg/dL 0 - 199 [facility] Work Phone: Comment on above: . [...] Cholesterol in HDL [Mass/Vol] 39.0 mg/dL Abnormal [facility] Work Phone: Comment on above: . AGE VERY LOW LOW N ORMAL HIGH 0-19 Y < 35 < 40 40-45 ---- 20-24 Y ---- < 40 >45 ---- >24 Y ---- < 40 40-60 >60. Cholesterol in LDL [Mass/Vol] 87 mg/dL 0 - 99 [facility] Work Phone: Comment on above: . NEAR BORD AGE CHERYL RABLE OPTIMAL HIGH HIGH VERY HIGH 0-19 Y 0 - 109 --- 110-129 >/= 130 ---- 20-24 Y 0 - 119 --- 120-159 >/= 160 ---- >24 Y 0 - 99 100-129 130-159 160-189 >/=190. Cholesterol.total/Chol esterol in HDL [Mass ratio] 3.8 {ratio} [employer] [facility] Work Phone: Comment on above: REF VALUESDESIRABLE < 3.4HIGH RISK > 5.0 Triglyceride [Mass/Vol] 106 mg/dL 0 - 149 [facility] Work Phone: Comment on above: . AGE [...] Lipid Panel 21 mg/dL 0 - 40 [facility] Work Phone: MRSA Screenon 03-31-2020 Staphylococcus sp identified Org specific cx Nom (Unsp spec) PATIENT: FAWN CAMERON LOCATION: [facility]#: [id number] : [birth year] AGE: SEX: M ORDERED BY: [place] BATES: ANTERIOR NARES COLLECTED: 03/31/20 07:10ANTIBIOTICS AT WILL.: RECEIVED : 03/31/20 15:03SITE: R E S U L T S STAPH/MRSA SCREEN FINAL 04/02/20 08:45 NO Staphylococcus aureus ISOLATED. [facility] Work Phone: Comment on above: Ordering Provider: Yony DEE BUENROSTRODER [id number] Metabolic Panelon 03-31-2020 ALP [Catalytic activity/Vol] 67 U/L 33 - 136 [facility] Work Phone: Anion gap [Moles/Vol] 10 mmol/L 10 - 20 - [facility] Work Phone: Bilirubin [Mass/Vol] 1.0 mg/dL 0.0 - 1.2 - [facility] Work Phone: Calcium [Mass/Vol] 8.9 mg/dL 8.6 - 10.3 -Med [facility] Work Phone: Chloride [Moles/Vol] 107 mmol/L 98 - 107 - [facility] Work Phone: CO2 [Moles/Vol] 26 mmol/L 21 - 32 -[facility] Work Phone: Creatinine [Mass/Vol] 0.89 mg/dL See Below - [facility] Work Phone: Comment on above: Reference Range: 0.5 0 - 1.30 Glucose [Mass/Vol] 92 mg/dL 74 - 99 [facility] Work Phone: Potassium [Moles/Vol] 3.9 mmol/L 3.5 - 5.3 - [facility] Work Phone: Protein [Mass/Vol] 5.7 g/dL below low threshold 6.4 - 8.2 -[facility] Work Phone: Sodium [Moles/Vol] 139 mmol/L 136 - 145 [facility] Work Phone: Urea nitrogen [Mass/Vol] 19 mg/dL 6 - 23 -[facility] Work Phone: Otheron 03-31-2020 Albumin BCP dye [Mass/Vol] 4.1 g/dL 3.4 - 5.0 [facility] Work Phone: ALT With P-5'-P [Catalytic activity/Vol] 17 U/L 10 - 52 [facility] Work Phone: Comment on above: Patients treated wit h Sulfasalazine may generate falsely decreased results for ALT. AST With P-5'-P [Catalytic activity/Vol] 16 U/L 9 - 39 [facility] Work Phone: >60 >60 [facility] Work Phone: Comment on above: CALCULATIONS OF LEONIDES MATED GFR ARE PERFORMED USING THE MDRD STUDY EQUATION FOR THE IDMS-TRACEABLE CREATININE METHODS. CLIN CHEM 2007;53:766-72 Urinalysison 03-31-2020 Appearance (U) HAZY CLEAR [facility] Work Phone: Comment on above: Ordering Provider: Yony Pollack Color (U) Yellow See Below [facility] Work Phone: Comment on above: Reference Range: STR AW,YELLOW Ordering Provider: Yony Pollack Glucose Ql (U) Negative NEGATIVE [facility] Work Phone: Comment on above: Ordering Provider: Yony Pollack Ketones Ql (U) Negative NEGATIVE [facility] Work Phone: Comment on above: Ordering Provider: Yony Pollack Leukocyte esterase Test strip Ql (U) Negative NEGATIVE [facility] Work Phone: Comment on above: Ordering Provider: Yony BATES [id number] pH (U) 6.0 [pH] 5.0 - 8.0 [facility] Work Phone: Comment on above: Ordering Provider: Yony Pollack Protein (U) [Mass/Vol] Negative NEGATIVE [facility] Work Phone: Comment on above: Ordering Provider: S TEPJEANNE Pollack RBC (U) [#/Vol] Negative NEGATIVE [facility] Work Phone: Comment on above: Ordering Provider: Yony Pollack Specific gravity (U) [Rel density] 1.018 1 See Below [facility] Work Phone: Comment on above: Reference Range: 1.0 05 - 1.035 Ordering Provider: Yony Pollack Urinalysis Negative NEGATIVE [facility] Work Phone: Comment on above: Ordering Provider: Yony Pollack Urinalysis <2.0 0.0 - 1.9 [facility] Work Phone: Comment on above: Ordering Provider: Yony Pollack Otheron 03-08-2020 Stress Nuc Stress EF 67 % [place] [employer] Patient Info Name: FAWN CAMERON Age: 84 years : 1935 Gender: Male Ht: 170 cm Wt: 76 kg BSA: 1.90 m2 Exam Date: 03/08/2020 10:00 AM Patient Status: Outpatient Ordering Physician: HEATHER PAREDES Fingernail Sculpturer: Sherry Damon, (N), LEILA, ISABEL, Gregory Damon RT(N), NCT Exam Type: NM MYOCARDIAL PERFUSION MULTI SPECT Study Info Indications - Pre-op, intermediate risk surgery, no CVD/CKD/IDDM Attending Physician: HEATHER PAREDES Nuclear Physician: Deb Sue MD, SILVANA Referring Physician: HEATHER PAREDES ; [id number] Stress Staff: Paulino Tesfaye MA Primary Nurse: [...] left antecubital Administered By: Sherry Damon, (N), [facility] Camera Used: [employer] D-SPECT Image Protocol Stress Patient Position: upright [...] Deb Sue MD on 03/08/2020 02:15 PM [facility] Interface, Rad In Heartlab Xper Echopacs - 03/08/2020 3:38 PM EDT Patient Info Name: FAWN CAMERON Age: 84 years : 1935 Gender: Male Ht: 170 cm Wt: 76 kg BSA: 1.90 m2 Exam Date: 03/08/2020 10:00 AM Patient Status: Outpatient Ordering Physician: HEATHER PAREDES Fingernail Sculpturer: Sherry Damon, (N), LEILA, ISABEL, Gregory Damon RT(N), NCT Exam Type: NM MYOCARDIAL PERFUSION MULTI SPECT Study Info Indications - Pre-op, intermediate risk surgery, no CVD/CKD/IDDM Attending Physician: HEATHER PAREDES Nuclear Physician: Deb Sue MD, SILVANA Referring Physician: HEATHER PAREDES ; [id number] Stress Staff: Paulino Tesfaye MA Primary Nurse: [...] left antecubital Administered By: Sherry Damon, (N), [employer], R[employer] Camera Used: [employer] D-SPECT Image Protocol Stress Patient Position: upright [...] Deb Sue MD on 03/08/2020 02:15 PM [facility] MR Shoulder Left Without Con traston [...] AC joint osteoarthrosis. Moderate glenohumeral joint effusion. [employer] Workstation ID: [id number] [facility] EXAMINATION: MR SHOULDER LEFT WITHOUT CONTRAST [...] the fluid extends into the subdeltoid bursa. [facility] Interface, Rad In Fu ji Speechq - [...] AC joint osteoarthrosis. Moderate glenohumeral joint effusion. [facility] Workstation ID: [id number] [facility] IO UA (nonautomated w/o micr oscopy)on 11-12-2019 Protein (U) [Mass/Vol] Negative Negative [facility] Work Phone: IO UA (nonautomated w/o microscopy) Clear Clear [facility] Work Phone: IO UA (nonautomated w/o microscopy) Negative Negative [facility] [facility] Work Phone: IO UA (nonautomated w/o microscopy) 1.025 1.000-1.030 [facility] Work Phone: IO UA (nonautomated w/o microscopy) Yellow Colorless-Ye llow YZ[facility] [facility] Work Phone: IO UA (nonautomated w/o microscopy) 5.5 5.0-8.0 [facility] Work Phone: IO UA (nonautomated w/o microscopy) Normal (0.2-1.0 mg/dl) Normal [facility] Work Phone: IO Ultrasound, measurement p ost-void resid urine and/or bl cap; no imagon 10-08-2019 IO Ultrasound, measurement post-void resid urine and/or bl cap; no imag 36 ml/min MZ[facility] Work Phone: LDL, Direct, Serumon 019 Cholesterol in LDL [Mass/Vol] 102 mg/dL 0 - 129 [facility] Work Phone: Comment on above: Elevated levels [...] 100 U/L 33 - 136 -[facility] Work Phone: Anion gap [Moles/Vol] 12 mmol/L 10 - 20 - [facility] Work Phone: Bilirubin [Mass/Vol] 0.6 mg/dL 0.0 - 1.2 [employer] [facility] Work Phone: Calcium [Mass/Vol] 9.1 mg/dL 8.6 - 10.3 [employer] [facility] Work Phone: Chloride [Moles/Vol] 106 mmol/L 98 - 107 - [facility] Work Phone: CO2 [Moles/Vol] 24 mmol/L 21 - 32 [facility] l [facility] Work Phone: Creatinine [Mass/Vol] 0.93 mg/dL See Below - [facility] Work Phone: Comment on above: Reference Range: 0.5 0 - 1.30 Glucose [Mass/Vol] 101 mg/dL above high threshold 74 - 99 -[facility] Work Phone: Potassium [Moles/Vol] 4.0 mmol/L 3.5 - 5.3 - [facility] Work Phone: Protein [Mass/Vol] 6.2 g/dL below low threshold 6.4 - 8.2 -[facility] Work Phone: Sodium [Moles/Vol] 138 mmol/L 136 - 145 [facility] Work Phone: Urea nitrogen [Mass/Vol] 28 mg/dL above high threshold 6 - 23 -[facility] Work Phone: Otheron 09-29-2019 Albumin BCP dye [Mass/Vol] 3.9 g/dL 3.4 - 5.0 [facility] Work Phone: ALT With P-5'-P [Catalytic activity/Vol] 15 U/L 10 - 52 [facility] Work Phone: Comment on above: Patients treated wit h Sulfasalazine may generate falsely decreased results for ALT. AST With P-5'-P [Catalytic activity/Vol] 15 U/L 9 - 39 [facility] Work Phone: >60 >60 [facility] Work Phone: Comment on above: CALCULATIONS OF LEONIDES MATED GFR ARE PERFORMED USING THE MDRD STUDY EQUATION FOR THE IDMS-TRACEABLE CREATININE METHODS. CLIN CHEM 2007;53:766-72 Basic Metabolic Panelon 11 Anion gap [Moles/Vol] 13 mmol/L 10 - 2 0 mmol/L [facility] Calcium [Mass/Vol] 8.3 mg/dL Low 8.4 - 10. 2 mg/dL [facility] Chloride [Moles/Vol] 109 mmol/L High 98 - 10 8 mmol/L [facility] Creatinine [Mass/Vol] 0.86 mg/dL 0.8 - 1.3 mg/dL [facility] GFR/1.73 sq M predicted among non-blacks MDRD (S/P/Bld) [Vol rate/Area] The eGFR should be used for monitoring renal function only and not for medication dosing. [facility] GFR/1.73 sq M.predicted CKD-EPI (S/P/Bld) [Vol rate/Area] 80 >=60 mL/min/1.73 m2 [facility] Glucose [Mass/Vol] 99 mg/dL 65 - 99 mg/dL [facility] HCO3 [Moles/Vol] 23 mmol/L 21 - 32 mmol/L [facility] Interpretation and review of laboratory results Abnormal [facility] Potassium [Moles/Vol] 4.0 mmol/L 3.5 - 5.1 mmol/L [facility] Sodium [Moles/Vol] 141 mmol/L 135 - 145 mmol/L [facility] Urea nitrogen [Mass/Vol] 17 mg/dL 8 - 25 mg/dL [facility] Urea nitrogen/Creatinine [Mass ratio] 19.8 mg/mg [facility] Hemoglobin and Hematocriton 09-11-2019 Hematocrit (Bld) [Volume fraction] 35.5 % Low 41 - 53 % [facility] Hemoglobin (Bld) [Mass/Vol] 11.9 g/dL Low 13.5 - 17.5 g/dL [facility] Interpretation and review of laboratory results Abnormal [facility] XR Hip Left 2-3 Views (Routi [...] limits. IMPRESSION: Interval left total hip replacement. [employer] Workstation ID: [id number] [facility] EXAMINATION: XR HIP LEFT 2-3 VIEWS [...] fracture. Soft tissues are within normal limits. [facility] Interval left total hip replacement. [employer] Workstation ID: [id number] [facility] Complete Blood Count + Diffe rentialon 08-22-2019 Basophils (Bld) [#/Vol] 0.00 {x10E9/L} See Below [facility] Work Phone: Comment on above: Reference Range: 0.0 0 - 0.10 Ordering Provider: Tacos SALGUERO 19490 Basophils/100 WBC (Bld) 0.5 % 0.0 - 2.0 [facility] [place] Work Phone: Comment on above: Ordering Provider: Tacos SALGUERO 81668 Eosinophils (Bld) [#/Vol] 0.20 {x10E9/L} See Below [facility] [place] Work Phone: Comment on above: Reference Range: 0.0 0 - 0.40 Ordering Provider: Tacos SALGUERO 08188 Eosinophils/100 WBC (Bld) 2.8 % 0.0 - 6.0 [facility] [place] Work Phone: Comment on above: Ordering Provider: Tacos SALGUERO 36520 Erythrocyte distribution width (RBC) [Ratio] 13.5 % See Below [facility] [place] Work Phone: Comment on above: Reference Range: 11. 5 - 14.5 Ordering Provider: Tacos SALGUERO 61983 Hematocrit (Bld) [Volume fraction] 40.3 % below low threshold See Below [facility] [place] Work Phone: Comment on above: Reference Range: 41. 0 - 52.0 Ordering Provider: Tacos SALGUERO 83899 Hemoglobin (Bld) [Mass/Vol] 13.7 g/dL See Below [facility] [place] Work Phone: Comment on above: Reference Range: 13. 5 - 17.5 Ordering Provider: Tacos SALGUERO 87736 Lymphocytes (Bld) [#/Vol] 1.10 {x10E9/L} See Below [facility] [place] Work Phone: Comment on above: Reference Range: 0.8 0 - 3.00 Ordering Provider: Tacos SALGUERO 00855 Lymphocytes/100 WBC (Bld) 13.5 % See Below [facility] Work Phone: Comment on above: Reference Range: 13. 0 - 44.0 Ordering Provider: Tacos SALGUERO 87973 MCHC (RBC) [Mass/Vol] 34.0 g/dL See Below [facility] Work Phone: Comment on above: Reference Range: 32. 0 - 36.0 Ordering Provider: Tacos SALGUERO 86435 MCV (RBC) [Entitic vol] 101 fL above high threshold 80 - 100 [facility] enedelia [place] Work Phone: Comment on above: Ordering Provider: Tacos ADMA JOSE M 26237 Monocytes (Bld) [#/Vol] 0.80 {x10E9/L} See Below [facility] enedelia [employer] Work Phone: Comment on above: Reference Range: 0.0 5 - 0.80 Ordering Provider: Tacos SALGUERO 19459 Monocytes/100 WBC (Bld) 9.5 % 2.0 - 10.0 [facility] Work Phone: Comment on above: Ordering Provider: Tacos HERNANDEZA JOSE M 17829 Neutrophils/100 WBC (Bld) 73.7 % See Below [facility] Work Phone: Comment on above: Reference Range: 40. 0 - 80.0 Ordering Provider: Tacos HERNANDEZA NEETULANFLORENTIN 39198 Platelets (Bld) [#/Vol] 273 {x10E9/L} 150 - 450 [facility] Work Phone: Comment on above: Ordering Provider: Tacos ADMA NEETULANKI 62892 RBC (Bld) [#/Vol] 3.98 {x10E12/L} below low threshold See Below [facility] [place] Work Phone: Comment on above: Reference Range: 4.5 0 - 5.90 Ordering Provider: Tacos ADMA NEETULANKI 88481 WBC (Bld) [#/Vol] 8.1 {x10E9/L} 4.4 - 11.3 [facility] Work Phone: Comment on above: Ordering Provider: P ADMA NEETULANKI 30429 Complete Blood Count + Differential 6.00 {x10E9/L} above high threshold See Below [facility] Work Phone: Comment on above: Reference Range: 1.6 0 - 5.50 Ordering Provider: P ADMA NEETULANFLORENTIN 06226 Metabolic Panelon 08-22-2019 ALP [Catalytic activity/Vol] 73 U/L 33 - 136 [facility] Work Phone: Comment on above: Ordering Provider: P ADMA NEETULANFLORENTIN 74592 Anion gap [Moles/Vol] 9 mmol/L below low threshold 10 - 20 [facility] m[facility]aniels [place] Work Phone: Comment on above: Ordering Provider: P ADMA NEETULANFLORENTIN 82266 Bilirubin [Mass/Vol] 0.6 mg/dL 0.0 - 1.2 [facility] Work Phone: Comment on above: Ordering Provider: P ADMA NEETULANKI 13596 Calcium [Mass/Vol] 8.9 mg/dL 8.6 - 10.3 [facility] Work Phone: Comment on above: Ordering Provider: P ADMA NEETULANKI 15300 Chloride [Moles/Vol] 105 mmol/L 98 - 107 [facility] Work Phone: Comment on above: Ordering Provider: P ADMA NEETULANKI 72492 CO2 [Moles/Vol] 29 mmol/L 21 - 32 [facility] Work Phone: Comment on above: Ordering Provider: P ADMA NEETULANKI 43125 Creatinine [Mass/Vol] 0.84 mg/dL See Below [facility] Work Phone: Comment on above: Reference Range: 0.5 0 - 1.30 Ordering Provider: P ADMA NEETULANKI 82906 Glucose [Mass/Vol] 88 mg/dL 74 - 99 [facility] Work Phone: Comment on above: Ordering Provider: P ADMA VELLANKI 55922 Potassium [Moles/Vol] 4.0 mmol/L 3.5 - 5.3 [facility] Work Phone: Comment on above: Ordering Provider: P ADMA NEETULANKI 57926 Protein [Mass/Vol] 6.2 g/dL below low threshold 6.4 - 8.2 [facility] Work Phone: Comment on above: Ordering Provider: P ADMA NEETULANKI 37016 Sodium [Moles/Vol] 139 mmol/L 136 - 145 [facility] Work Phone: Comment on above: Ordering Provider: P ADMA NEETULANKI 85545 Urea nitrogen [Mass/Vol] 22 mg/dL 6 - 23 [facility] Work Phone: Comment on above: Ordering Provider: P ADMA NEETULANKI 55728 Otheron 08-22-2019 Albumin BCP dye [Mass/Vol] 4.1 g/dL 3.4 - 5.0 [facility] Work Phone: Comment on above: Ordering Provider: P ADMA VELLANKI 41704 ALT With P-5'-P [Catalytic activity/Vol] 16 U/L 10 - 52 [facility] Work Phone: Comment on above: Patients treated wit h Sulfasalazine may generate falsely decreased results for ALT. Ordering Provider: P ADMA VELLANKI 36585 AST With P-5'-P [Catalytic activity/Vol] 16 U/L 9 - 39 [facility] Work Phone: Comment on above: Ordering Provider: Tacos SALGUERO 01743 >60 >60 [facility] Work Phone: Comment on above: Ordering Provider: Tacos SALGUERO 53510 CALCULATIONS OF LEONIDES MATED GFR ARE PERFORMED USING THE MDRD STUDY EQUATION FOR THE IDMS-TRACEABLE CREATININE METHODS. 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 Mild osteoarthritic changes of the knees. 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 Recommend vascular surgery follow-up. [facility] Workstation ID: [id number] [facility] EXAMINATION: CT HIP LEFT WITHOUT CONTRAST [...] Severe left hip joint space narrowing with ttfn-yl-iarq appearance, superolateral migration of the femoral head, subchondral sclerosis, subchondral cystic changes and moderate marginal osteophytosis, compatible with advanced osteoarthritis. Severe right hip joint space narrowing with uyfa-ex-wrxh appearance and moderate marginal osteophytosis, compatible with [...] atherosclerotic calcification of the visualized popliteal arteries. [facility] Interface, Rad In Fu ji Speechq - [...] Severe left hip joint space narrowing with qfaa-bn-faie appearance, superolateral migration of the femoral head, subchondral sclerosis, subchondral cystic changes and moderate marginal osteophytosis, compatible with advanced osteoarthritis. Severe right hip joint space narrowing with yufo-kf-satp appearance and moderate marginal osteophytosis, compatible with [...] to 3.4 cm. Recommend vascular surgery follow-up. [facility] Workstation ID: [id number] [facility] 08-05-2019 CT Head limited WO contrast Interpreted by: RUBINA PINEDA08/05/19 15:15MRN: [id number] Name: FAWN CAMERON STUDY:CT HEAD WO CONTRAST; 08/05/2019 3:04 pm [...] no evidence of an acute infarction or hemorrhage.Electronica lly signed by: RUBINA PINEDA 08/05/19 15:15 Normal [facility] Work Phone: Comment on above: Ordering Provider: Edwina RICHEY 28624 Auto Diffon 05-24-2019 Basophils (Bld) [#/Vol] 0.0 E3/mcL Normal 0.0-0.2 [facility] Comment on above: Order Comment: Order Added by Discern Expert. Performed By: #### 2 [id number] #### LUIS MANUEL [employer] [address] [place] [address] Basophils/100 WBC (Bld) 0.6 % Normal 0.0-2.0 [facility] Comment on above: Order Comment: Order Added by Discern Expert. Performed By: #### 2 718187 #### LUIS MANUEL [employer] [address] [place] [address] Eos Absolute 0.2 E3/mcL Normal 0.0-0.7 [facility] Comment on above: Order Comment: Order Added by Discern Expert. Performed By: #### 2 660812 #### LUIS MANUEL [employer] [address] [place] [address] Eosinophils/100 WBC (Bld) 2.4 % Normal 0.0-11.0 [facility] Comment on above: Order Comment: Order Added by Discern Expert. Performed By: #### 2 514641 #### LUIS MANUEL [employer] [address] [place] [address] Lymphocytes (Bld) [#/Vol] 1.2 E3/mcL Normal 1.2-3.4 [facility] Comment on above: Order Comment: Order Added by Discern Expert. Performed By: #### 2 [id number] #### LUIS MANUEL [employer] [address] [place] [address] Lymphocytes/100 WBC (Bld) 15.9 % Low 20.0-55.0 [facility] Comment on above: Order Comment: Order Added by Discern Expert. Performed By: #### 2 467691 #### LUIS MANUEL [address] [address] [place] Absolute 0.9 E3/mcL High 0.0-0.7 [facility] Comment on above: Order Comment: Order Added by Discern Expert. Performed By: #### 2 816529 #### LUIS MANUEL [address] [address] Monocytes/100 WBC (Bld) 11.2 % High 0.0-10.0 [facility] Comment on above: Order Comment: Order Added by Discern Expert. Performed By: #### 2 947814 #### LUIS MANUEL [place] [id number] Neutro Absolute 5.5 E3/mcL Normal 1.4-6.5 [facility] Comment on above: Order Comment: Order Added by Discern Expert. Performed By: #### 2 586878 #### LUIS MANUEL [place] [address] Neutro Auto 69.9 % Normal 37.0-75.0 [facility] Comment on above: Order Comment: Order Added by Discern Expert. Performed By: #### 2 077527 #### LUIS MANUEL [place] [id number] CBC w/ Auto Diffon 9 Erythrocyte distribution width (RBC) [Ratio] 13.7 % Normal 11.5-14.5 [facility] Comment on above: Performed By: #### 2 475187 #### LUIS MANUEL [address] [address] Hematocrit (Bld) [Volume fraction] 42.6 % Normal 42.0-52.0 [facility] Comment on above: Performed By: #### 2 304150 #### LUIS MANUEL [address] [address] Hemoglobin (Bld) [Mass/Vol] 14.2 g/dL Normal 13.5-18.0 [facility] Comment on above: Performed By: #### 2 027121 #### LUIS MANUEL Rosalind[address] [address] MCH (RBC) [Entitic mass] 33.5 pg High 27.0-31.0 [facility] Comment on above: Performed By: #### 2 364890 #### LUIS MANUELReji Stein [address] [place] [address] MCHC (RBC) [Mass/Vol] 33.4 g/dL Normal 33.0-37.0 [facility] Comment on above: Performed By: #### 2 619672 #### LUIS MANUELReji BoyerChem [address] [place] [address] MCV (RBC) [Entitic vol] 100.3 fL High 78.0-100.0 [facility] Comment on above: Performed By: #### 2 176840 #### LUIS MANUEL RosalindMike [facility] [place] [address] Platelet mean volume (Bld) [Entitic vol] 7.9 fL Normal 7.4-11.0 [facility] Comment on above: Performed By: #### 2 816794 #### LUIS MANUEL RosalindMike [address] [place] [address] Platelets (Bld) [#/Vol] 263 E3/mcL Normal 130-400 [facility] Comment on above: Performed By: #### 2 975001 #### LUIS MANUEL RosalindChem [facility] [place] [address] RBC (Bld) [#/Vol] 4.24 E6/mcL Normal 3.90-6.[address] [facility] Comment on above: Performed By: #### 2 300545 #### LUIS MANUEL RosalindMike [facility] [place] [address] WBC (Bld) [#/Vol] 7.9 E3/mcL Normal 3.6-11.0 [facility] Comment on above: Performed By: #### 2 527494 #### LUIS MANUEL [employer] [address] [place] [address] CMPon 05-24-2019 Albumin [Mass/Vol] 4.2 g/dL Normal 3.4-5.[address] [facility] Comment on above: Performed By: #### 2 064245 #### LUIS MANUELReji BoyerChem [address] [place] [address] Albumin/Globulin [Mass ratio] 1.9 {ratio} Normal 1.1-1.9 [facility] Comment on above: Performed By: #### 2 096146 #### LUIS MANUEL BoyerChem [address] [place] [address] Alk Phos 78 Int._Unit/L Normal 33-136 [facility] Comment on above: Performed By: #### 2 333392 #### LUIS MANUEL [employer] [address] [place] [address] ALT [Catalytic activity/Vol] 19 Int._Unit/L Normal 10-52 [facility] Comment on above: Performed By: #### 2 453371 #### LUIS MANUEL [employer] [address] [place] [address] Anion gap [Moles/Vol] 10 mmol/L Normal 10-20 [facility] Comment on above: Performed By: #### 2 229484 #### LUIS MANUELReji BoyerDivvyshot [address] [place] [address] AST [Catalytic activity/Vol] 20 Int._Unit/L Normal 9-39 [facility] Comment on above: Performed By: #### 2 360686 #### LUIS MANUEL RemDivvyshot [address] [place] [address] Bili Total 0.62 mg/dL Normal 0.00-1.20 [facility] Comment on above: Performed By: #### 2 866127 #### LUIS MANUELReji BoyerDivvyshot [address] [place] [address] Calcium [Mass/Vol] 8.9 mg/dL Normal 8.6-10.[address] [facility] Comment on above: Performed By: #### 2 162738 #### LUIS MANUEL [employer] [address] [place] [address] Chloride [Moles/Vol] 106 mmol/L Normal 98-107 [facility] Comment on above: Performed By: #### 2 064462 #### LUIS MANUEL [employer] [address] [place] [address] CO2 [Moles/Vol] 29.0 mmol/L Normal 21.0-32.0 [facility] Comment on above: Performed By: #### 2 852378 #### [facility] RemDivvyshot [address] [place] [address] Creatinine [Mass/Vol] 1.0 mg/dL Normal 0.5-1.3 [facility] Comment on above: Performed By: #### 2 537175 #### LUIS MANUEL Stein [address] [place] [address] Globulin (S) [Mass/Vol] 2.0 g/dL Normal 2.0-4.0 [facility] Comment on above: Performed By: #### 2 441517 #### LUIS MANUEL BoyerChem [address] [place] [address] Glucose [Mass/Vol] 92 mg/dL Normal 70-[address] [facility] Comment on above: Performed By: #### 2 882918 #### LUIS MANUEL Stein [address] [place] [address] Potassium [Moles/Vol] 4.2 mmol/L Normal 3.5-5.3 [facility] Comment on above: Performed By: #### 2 840889 #### LUIS MANUEL BoyerDivvyshot [address] [place] [address] Protein [Mass/Vol] 6.4 g/dL Normal 6.4-8.[address] [facility] Comment on above: Performed By: #### 2 835442 #### LUIS MANUEL Stein [address] [place] [address] Sodium [Moles/Vol] 141 mmol/L Normal 136-[address] [facility] Comment on above: Performed By: #### 2 374928 #### LUIS MANUEL BoyerDivvyshot [address] [place] [address] Urea nitrogen [Mass/Vol] 22 mg/dL Normal 6-23 [facility] Comment on above: Performed By: #### 2 104280 #### LUIS MANUEL [employer] [address] [place] [address] Urea nitrogen/Creatinine [Mass ratio] 22.0 ratio Normal 5.4-30.0 [facility] Comment on above: Performed By: #### 2 340580 #### LUIS MANUEL BoyerDivvyshot [address] [place] [address] eGFRon 05-24-2019 GFR/1.73 sq M predicted among non-blacks MDRD (S/P/Bld) [Vol rate/Area] mL/min/{1.73_m2} Normal [facility] Comment on above: Order Comment: Order added by Discern Expert. Performed By: #### 2 482965 #### LUIS MANUEL [employer] [facility] [place] [id number] ECG 12-LEADon 05-19-2019 Atrial Rate [facility] P Stella [facility] P-R Interval [facility] Q-T Interval [facility] Q-T Interval (corrected) [facility] QRS Duration [facility] QTC Calculation (Bezet) [facility] R Stella [facility] T Stella [facility] Ventricular Rate [facility] th XR Esophaguson 04-16-2019 XR Esophagus Exam Date/Time: 04/16/2019 08:36 EDT Reason for Exam: ESOPHAGEAL SPASM HIATAL HERNIA;Esophageal spasm Report STUDY: Esophagram dated 04/16/2019. INDICATION: Pain. COMPARISON: None. ACCESSION NUMBER(S): [id number] ORDERING CLINICIAN: Daysi Arenas TECHNIQUE: Labeling Associate radiograph of the abdomen was obtained. Patient [...] by: João Zamora MD Technologist: TRD Normal [facility] CMPon 03-20-2019 Albumin [Mass/Vol] 3.8 g/dL Normal 3.4-5.[address] [facility] Comment on above: Performed By: #### 2 559476 #### LUIS MANUEL RemHemo [facility] [place] [address] Albumin/Globulin [Mass ratio] 2.2 {ratio} High 1.1-1.9 [facility] Comment on above: Performed By: #### 2 244946 #### LUIS MANUEL RemHemo [address] [place] [address] Alk Phos 68 Int._Unit/L Normal 33-136 [facility] Comment on above: Performed By: #### 2 691786 #### LUIS MANUEL RemHemo [address] [place] [address] ALT [Catalytic activity/Vol] 15 Int._Unit/L Normal 10-52 [facility] Comment on above: Performed By: #### 2 734408 #### LUIS MANUEL RemHemo [address] [place] [address] Anion gap [Moles/Vol] 9 mmol/L Low 10-20 [facility] Comment on above: Performed By: #### 2 133060 #### LUIS MANUEL BoyerHemo [address] [place] [address] AST [Catalytic activity/Vol] 17 Int._Unit/L Normal 9-39 [facility] Comment on above: Performed By: #### 2 795493 #### LUIS MANUEL RemHemo [address] [place] [address] Bili Total 0.86 mg/dL Normal 0.00-1.20 [facility] Comment on above: Performed By: #### 2 416970 #### LUIS MANUEL RemHemo [address] [place] [address] Calcium [Mass/Vol] 8.4 mg/dL Low 8.6-10.[address] [facility] Comment on above: Performed By: #### 2 447538 #### LUIS MANUEL RemHemo [address] [place] [address] Chloride [Moles/Vol] 108 mmol/L High 98-107 [facility] Comment on above: Performed By: #### 2 895526 #### LUIS MANUEL RemHemo [address] [place] [address] CO2 [Moles/Vol] 25.0 mmol/L Normal 21.0-32.0 [facility] Comment on above: Performed By: #### 2 005570 #### LUIS MANUEL RemHemo [address] [place] [address] Creatinine [Mass/Vol] 0.9 mg/dL Normal 0.5-1.3 [facility] Comment on above: Performed By: #### 2 405132 #### LUIS MANUEL BoyerHemo [address] [place] [address] Globulin (S) [Mass/Vol] 2.0 g/dL Normal 2.0-4.0 [facility] Comment on above: Performed By: #### 2 810939 #### LUIS MANUEL BoyerHemo [address] [place] [address] Glucose [Mass/Vol] 91 mg/dL Normal 70-[address] [facility] Comment on above: Performed By: #### 2 272269 #### LUIS MANUEL BoyerHemo [address] [place] [address] Potassium [Moles/Vol] 3.8 mmol/L Normal 3.5-5.3 [facility] Comment on above: Performed By: #### 2 484489 #### LUIS MANUEL BoyerHemo [address] [place] [address] Protein [Mass/Vol] 5.5 g/dL Low 6.4-8.[address] [facility] Comment on above: Performed By: #### 2 589179 #### LUIS MANUEL BoyerHemo [address] [place] [address] Sodium [Moles/Vol] 138 mmol/L Normal 136-[address] [facility] Comment on above: Performed By: #### 2 101326 #### LUIS MANUEL BoyerHemo [address] [place] [address] Urea nitrogen [Mass/Vol] 18 mg/dL Normal 6-23 [facility] Comment on above: Performed By: #### 2 932961 #### LUIS MANUEL RemHemo [address] [place] [address] Urea nitrogen/Creatinine [Mass ratio] 20.0 ratio Normal 5.4-30.0 [facility] Comment on above: Performed By: #### 2 674557 #### LUIS MANUEL BoyerHemo [address] [place] [address] Lipid Profileon 03-20-2019 Cholesterol [Mass/Vol] 132 mg/dL Normal 0-199 [facility] Comment on above: Performed By: #### 2 588097 #### LUIS MANUEL [employer] [address] [place] [address] Cholesterol in HDL [Mass/Vol] 34 mg/dL Low 40-60 [facility] Comment on above: Performed By: #### 2 683702 #### LUIS MANUEL [employer] [address] [place] [address] Cholesterol in LDL [Mass/Vol] 77 mg/dL Normal 0-130 [facility] Comment on above: Performed By: #### 2 548930 #### LUIS MANUEL [employer] [address] [place] [address] Cholesterol in VLDL [Mass/Vol] 21 mg/dL Normal 0-40 [facility] Comment on above: Performed By: #### 2 847796 #### LUIS MANUEL [employer] [address] [place] [address] Triglyceride [Mass/Vol] 107 mg/dL Normal 0-149 [facility] Comment on above: Result Comment: AGE DESIRABLE BORDERLINE HIGH 91 D - 9 Y 0 - 74 75 - 99 > 100 10 - 19 Y 0 - 89 90 - 129 > 130 20 - 24 Y 0 - 114 115 - 149 > 150 > 25 0 - 149 150 - 199 200 - 499 Performed By: #### 2 717767 #### LUIS MANUEL [employer] [address] [place] [address] eGFRon 03-20-2019 GFR/1.73 sq M predicted among non-blacks MDRD (S/P/Bld) [Vol rate/Area] mL/min/{1.73_m2} Normal [facility] Comment on above: Order Comment: Order added by Discern Expert. Performed By: #### 2 605060 #### LUIS MANUEL [employer] [address] [place] [address] Auto Diffon 02-24-2019 Basophils (Bld) [#/Vol] 0.0 E3/mcL Normal 0.0-0.2 [facility] Comment on above: Order Comment: Order Added by Discern Expert. Performed By: #### 2 792587 #### LUIS MANUEL RemHemo [address] [place] [address] Basophils/100 WBC (Bld) 0.6 % Normal 0.0-2.0 [facility] Comment on above: Order Comment: Order Added by Discern Expert. Performed By: #### 2 135992 #### LUIS MANUEL RemHemo [address] [place] [address] Eos Absolute 0.2 E3/mcL Normal 0.0-0.7 [facility] Comment on above: Order Comment: Order Added by Discern Expert. Performed By: #### 2 722536 #### LUIS MANUEL RemHemo [address] [place] [address] Eosinophils/100 WBC (Bld) 3.2 % Normal 0.0-11.0 [facility] Comment on above: Order Comment: Order Added by Discern Expert. Performed By: #### 2 044648 #### LUIS MANUEL RemHemo [address] [place] [address] Lymphocytes (Bld) [#/Vol] 1.1 E3/mcL Low 1.2-3.4 [facility] Comment on above: Order Comment: Order Added by Discern Expert. Performed By: #### 2 988233 #### LUIS MANUEL RemHemo [address] [place] [address] Lymphocytes/100 WBC (Bld) 15.4 % Low 20.0-55.0 [facility] Comment on above: Order Comment: Order Added by Discern Expert. Performed By: #### 2 902486 #### LUIS MANUEL RemHemo [address] [place] [address] [place] Absolute 0.8 E3/mcL High 0.0-0.7 [facility] Comment on above: Order Comment: Order Added by Discern Expert. Performed By: #### 2 [id number] #### LUIS MANUEL RemHemo [address] [place] [address] Monocytes/100 WBC (Bld) 11.2 % High 0.0-10.0 [facility] Comment on above: Order Comment: Order Added by Discern Expert. Performed By: #### 2 [id number] #### LUIS MANUEL RemHemo [address] [place] [address] Neutro Absolute 5.0 E3/mcL Normal 1.4-6.5 [facility] Comment on above: Order Comment: Order Added by Discern Expert. Performed By: #### 2 [id number] #### LUIS MANUEL RemHemo [address] [place] [address] Neutro Auto 69.6 % Normal 37.0-75.0 [facility] Comment on above: Order Comment: Order Added by Discern Expert. Performed By: #### 2 [id number] #### LUIS MANUEL RemHemo [address] [place] [address] CBC w/ Auto Diffon 9 Erythrocyte distribution width (RBC) [Ratio] 14.0 % Normal 11.5-14.5 [facility] Comment on above: Performed By: #### 2 312144 #### LUIS MANUEL RemHemo [address] [place] [address] Hematocrit (Bld) [Volume fraction] 41.4 % Low 42.0-52.0 [facility] Comment on above: Performed By: #### 2 591130 #### LUIS MANUEL RemHemo [facility] [place] [address] Hemoglobin (Bld) [Mass/Vol] 13.9 g/dL Normal 13.5-18.0 [facility] Comment on above: Performed By: #### 2 713614 #### LUIS MANUEL RemHemo [address] [place] [address] MCH (RBC) [Entitic mass] 33.7 pg High 27.0-31.0 [facility] Comment on above: Performed By: #### 2 587210 #### LUIS MANUEL RemHemo [address] [place] [address] MCHC (RBC) [Mass/Vol] 33.7 g/dL Normal 33.0-37.0 [facility] Comment on above: Performed By: #### 2 720096 #### LUIS MANUEL RemHemo [address] [place] [address] MCV (RBC) [Entitic vol] 100.0 fL Normal 78.0-100.0 [facility] Comment on above: Performed By: #### 2 880835 #### LUIS MANUEL RemHemo [address] [place] [address] Platelet mean volume (Bld) [Entitic vol] 7.8 fL Normal 7.4-11.0 [facility] Comment on above: Performed By: #### 2 517204 #### LUIS MANUEL BoyerHemo [address] [place] [address] Platelets (Bld) [#/Vol] 245 E3/mcL Normal 130-400 [facility] Comment on above: Performed By: #### 2 085244 #### LUIS MANUEL BoyerHemo [address] [place] [address] RBC (Bld) [#/Vol] 4.14 E6/mcL Normal 3.90-6.[address] [facility] Comment on above: Performed By: #### 2 530929 #### LUIS MANUEL ByoerHemo [address] [place] [address] WBC (Bld) [#/Vol] 7.2 E3/mcL Normal 3.6-11.0 [facility] Comment on above: Performed By: #### 2 073691 #### LUIS MANUEL BoyerHemo [address] [place] [address] CMPon 02-24-2019 Albumin [Mass/Vol] 3.8 g/dL Normal 3.4-5.[address] [facility] Comment on above: Performed By: #### 2 067766 #### LUIS MANUEL BoyerHemo [address] [place] [address] Albumin/Globulin [Mass ratio] 1.9 {ratio} Normal 1.1-1.9 [facility] Comment on above: Performed By: #### 2 093313 #### LUIS MANUEL BoyerHemo [address] [place] [address] Alk Phos 70 Int._Unit/L Normal 33-136 [facility] Comment on above: Performed By: #### 2 [id number] #### LUIS MANUEL RemHemo [address] [place] [address] ALT [Catalytic activity/Vol] 18 Int._Unit/L Normal 10-52 [facility] Comment on above: Performed By: #### 2 847258 #### LUIS MANUEL RemHemo [address] [place] [address] Anion gap [Moles/Vol] 11 mmol/L Normal 10-20 [facility] Comment on above: Performed By: #### 2 221918 #### LUIS MANUEL Bedollao [address] [place] [address] AST [Catalytic activity/Vol] 19 Int._Unit/L Normal 9-39 [facility] Comment on above: Performed By: #### 2 532476 #### LUIS MANUEL BoyerHemo [address] [place] [address] Bili Total 0.83 mg/dL Normal 0.00-1.20 [facility] Comment on above: Performed By: #### 2 752959 #### LUIS MANUEL BoyerHemo [address] [place] [address] Calcium [Mass/Vol] 8.8 mg/dL Normal 8.6-10.[address] [facility] Comment on above: Performed By: #### 2 193605 #### LUIS MANUEL BoyerHemo [address] [place] [address] Chloride [Moles/Vol] 107 mmol/L Normal 98-107 [facility] Comment on above: Performed By: #### 2 367301 #### LUIS MANUEL BoyerHemo [address] [place] [address] CO2 [Moles/Vol] 25.0 mmol/L Normal 21.0-32.0 [facility] Comment on above: Performed By: #### 2 509785 #### LUIS MANUEL BoyerHemo [address] [place] [address] Creatinine [Mass/Vol] 0.8 mg/dL Normal 0.5-1.3 [facility] Comment on above: Performed By: #### 2 332167 #### LUIS MANUEL BoyerHemo [address] [place] [address] Globulin (S) [Mass/Vol] 2.0 g/dL Normal 2.0-4.0 [facility] Comment on above: Performed By: #### 2 621674 #### LUIS MANUEL BoyerHemo [address] [place] [address] Glucose [Mass/Vol] 89 mg/dL Normal 70-[address] [facility] Comment on above: Performed By: #### 2 673028 #### LUIS MANUEL BoyerHemo [address] [place] [address] Potassium [Moles/Vol] 3.8 mmol/L Normal 3.5-5.3 [facility] Comment on above: Performed By: #### 2 748167 #### LUIS MANUEL Bedollao [facility] [place] [address] Protein [Mass/Vol] 5.8 g/dL Low 6.4-8.[address] [facility] Comment on above: Performed By: #### 2 507800 #### LUIS MANUEL Bedollao [address] [place] [address] Sodium [Moles/Vol] 139 mmol/L Normal 136-[address] [facility] Comment on above: Performed By: #### 2 928100 #### LUIS MANUEL BoyerHemo [address] [place] [address] Urea nitrogen [Mass/Vol] 17 mg/dL Normal 6-23 [facility] Comment on above: Performed By: #### 2 851119 #### LUIS MANUEL Bedollao [address] [place] [address] Urea nitrogen/Creatinine [Mass ratio] 21.2 ratio Normal 5.4-30.0 [facility] Comment on above: Performed By: #### 2 318501 #### LUIS MANUEL BoyerHemo [address] [place] [address] eGFRon 02-24-2019 GFR/1.73 sq M predicted among non-blacks MDRD (S/P/Bld) [Vol rate/Area] mL/min/{1.73_m2} Normal [facility] Comment on above: Order Comment: Order Added by Discern Expert. Performed By: #### 2 [id number] #### LUIS MANUEL BoyerHemo [address] [place] [address] Auto Diffon 11-23-2018 Basophils (Bld) [#/Vol] 0.0 E3/mcL Normal 0.0-0.2 [facility] Comment on above: Order Comment: Order Added by Discern Expert. Performed By: #### 2 074484 #### LUIS MANUEL BoyerHemo [facility] [place] [address] Basophils/100 WBC (Bld) 0.3 % Normal 0.0-2.0 [facility] Comment on above: Order Comment: Order Added by Discern Expert. Performed By: #### 2 408297 #### LUIS MANUEL RemHemo [address] [place] [address] Eos Absolute 0.1 E3/mcL Normal 0.0-0.7 [facility] Comment on above: Order Comment: Order Added by Discern Expert. Performed By: #### 2 982194 #### LUIS MANUEL RemHemo [address] [place] [address] Eosinophils/100 WBC (Bld) 1.5 % Normal 0.0-11.0 [facility] Comment on above: Order Comment: Order Added by Discern Expert. Performed By: #### 2 529493 #### LUIS MANUEL RemHemo [address] [place] [address] Lymphocytes (Bld) [#/Vol] 1.1 E3/mcL Low 1.2-3.4 [facility] Comment on above: Order Comment: Order Added by Discern Expert. Performed By: #### 2 486745 #### LUIS MANUEL RemHemo [address] [place] [address] Lymphocytes/100 WBC (Bld) 13.9 % Low 20.0-55.0 [facility] Comment on above: Order Comment: Order Added by Discern Expert. Performed By: #### 2 621049 #### LUIS MANUEL RemHemo [address] [place] [address] [place] Absolute 0.8 E3/mcL High 0.0-0.7 [facility] Comment on above: Order Comment: Order Added by Discern Expert. Performed By: #### 2 895042 #### LUIS MANUEL RemHemo [address] [place] [address] Monocytes/100 WBC (Bld) 10.5 % High 0.0-10.0 [facility] Comment on above: Order Comment: Order Added by Discern Expert. Performed By: #### 2 114313 #### LUIS MANUEL RemHemo [address] [place] [address] Neutro Absolute 5.8 E3/mcL Normal 1.4-6.5 [facility] Comment on above: Order Comment: Order Added by Discern Expert. Performed By: #### 2 937408 #### LUIS MANUEL RemHemo [address] [place] [address] Neutro Auto 73.8 % Normal 37.0-75.0 [facility] Comment on above: Order Comment: Order Added by Discern Expert. Performed By: #### 2 487021 #### LUIS MANUEL RemHemo [facility] [place] [address] CBC w/ Auto Diffon 9 Erythrocyte distribution width (RBC) [Ratio] 13.4 % Normal 11.5-14.5 [facility] Comment on above: Performed By: #### 2 413524 #### LUIS MANUEL RemHemo [address] [place], [place] [address] Hematocrit (Bld) [Volume fraction] 43.0 % Normal 42.0-52.0 [facility] Comment on above: Performed By: #### 2 507930 #### LUIS MANUEL RemHemo [address] [place], [place] [address] Hemoglobin (Bld) [Mass/Vol] 14.3 g/dL Normal 13.5-18.0 [facility] Comment on above: Performed By: #### 2 896415 #### LUIS MANUEL RemHemo [address] [place] [address] MCH (RBC) [Entitic mass] 33.5 pg High 27.0-31.0 [facility] Comment on above: Performed By: #### 2 131500 #### LUIS MANUEL RemHemo [address] [place] [address] MCHC (RBC) [Mass/Vol] 33.2 g/dL Normal 33.0-37.0 [facility] Comment on above: Performed By: #### 2 109585 #### LUIS MANUEL RemHemo [facility] [place] [address] MCV (RBC) [Entitic vol] 101.0 fL High 78.0-100.0 [facility] Comment on above: Performed By: #### 2 865393 #### LUIS MANUEL RemHemo [address] [place] [address] Platelet mean volume (Bld) [Entitic vol] 8.1 fL Normal 7.4-11.0 [facility] Comment on above: Performed By: #### 2 078691 #### LUIS MANUEL BoyerHemo [address] [place] [address] Platelets (Bld) [#/Vol] 260 E3/mcL Normal 130-400 [facility] Comment on above: Performed By: #### 2 977602 #### LUIS MANUEL BoyerHemo [address] [place] [address] RBC (Bld) [#/Vol] 4.25 E6/mcL Normal 3.90-6.[address] [facility] Comment on above: Performed By: #### 2 662500 #### LUIS MANUEL BoyerHemo [address] [place] [address] WBC (Bld) [#/Vol] 7.9 E3/mcL Normal 3.6-11.0 [facility] Comment on above: Performed By: #### 2 040557 #### LUIS MANUEL BoyerHemo [address] [place] [address] CMPon 11-23-2018 Albumin [Mass/Vol] 4.2 g/dL Normal 3.4-5.[address] [facility] Comment on above: Performed By: #### 2 743903 #### LUIS MANUEL BoyerHemo [address] [place] [address] Albumin/Globulin [Mass ratio] 2.1 {ratio} High 1.1-1.9 [facility] Comment on above: Performed By: #### 2 088756 #### LUIS MANUEL BoyerHemo [address] [place] [address] Alk Phos 66 Int._Unit/L Normal 33-136 [facility] Comment on above: Performed By: #### 2 258949 #### LUIS MANUEL BoyerHemo [address] [place] [address] ALT [Catalytic activity/Vol] 18 Int._Unit/L Normal 10-52 [facility] Comment on above: Performed By: #### 2 855636 #### LUIS MANUEL BoeyrHemo [address] [place] [address] Anion gap [Moles/Vol] 9 mmol/L Low 10-20 [facility] Comment on above: Performed By: #### 2 304899 #### LUIS MANUEL BoyerHemo [address] [place] [address] AST [Catalytic activity/Vol] 19 Int._Unit/L Normal 9-39 [facility] Comment on above: Performed By: #### 2 600463 #### LUIS MANUEL BoyerHemo [address] [place] [address] Bili Total 0.78 mg/dL Normal 0.00-1.20 [facility] Comment on above: Performed By: #### 2 148499 #### LUIS MANUEL BoyerHemo [address] [place] [address] Calcium [Mass/Vol] 9.1 mg/dL Normal 8.6-10.[address] [facility] Comment on above: Performed By: #### 2 323362 #### LUIS MANUEL BoyerHemo [address] [place] [address] Chloride [Moles/Vol] 108 mmol/L High 98-107 [facility] Comment on above: Performed By: #### 2 589775 #### LUIS MANUEL BoyerHemo [address] [place] [address] CO2 [Moles/Vol] 28.0 mmol/L Normal 21.0-32.0 [facility] Comment on above: Performed By: #### 2 767306 #### LUIS MANUEL BoyerHemo [address] [place] [address] Creatinine [Mass/Vol] 0.9 mg/dL Normal 0.5-1.3 [facility] Comment on above: Performed By: #### 2 302814 #### LUIS MANUEL RemHemo [address] [place] [address] Globulin (S) [Mass/Vol] 2.0 g/dL Normal 2.0-4.0 [facility] Comment on above: Performed By: #### 2 744979 #### LUIS MANUEL RemHemo [address] [place] [address] Glucose [Mass/Vol] 81 mg/dL Normal 70-[address] [facility] Comment on above: Performed By: #### 2 473106 #### LUIS MANUEL RemHemo [address] [place] [address] Potassium [Moles/Vol] 3.8 mmol/L Normal 3.5-5.3 [facility] Comment on above: Performed By: #### 2 643219 #### LUIS MANUEL BoyerHemo [address] [place] [address] Protein [Mass/Vol] 6.2 g/dL Low 6.4-8.[address] [facility] Comment on above: Performed By: #### 2 406137 #### LUIS MANUEL BoyerHemo [address] [place] [address] Sodium [Moles/Vol] 142 mmol/L Normal 136-[address] [facility] Comment on above: Performed By: #### 2 980461 #### LUIS MANUEL BoyerHemo [address] [place] [address] Urea nitrogen [Mass/Vol] 26 mg/dL High 6-23 [facility] Comment on above: Performed By: #### 2 978323 #### LUIS MANUEL BoyerHemo [address] [place] [address] Urea nitrogen/Creatinine [Mass ratio] 28.9 ratio Normal 5.4-30.0 [facility] Comment on above: Performed By: #### 2 976668 #### LUIS MANUEL BoyerHemo [address] [place] [address] eGFRon 11-23-2018 GFR/1.73 sq M predicted among non-blacks MDRD (S/P/Bld) [Vol rate/Area] mL/min/{1.73_m2} Normal [facility] Comment on above: Order Comment: Order Added by Discern Expert. Performed By: #### 2 409553 #### LUIS MANUEL BoyerHemo [address] [place] [address] CMPon 09-09-2018 Albumin [Mass/Vol] 3.9 g/dL Normal 3.4-5.[address] [facility] Comment on above: Performed By: #### 2 345513 #### LUIS MANUEL [employer] [address] [place] [address] Albumin/Globulin [Mass ratio] 2.3 {ratio} High 1.1-1.9 [facility] Comment on above: Performed By: #### 2 168667 #### LUIS MANUEL [employer] [address] [place] [address] Alk Phos 68 Int._Unit/L Normal 33-136 [facility] Comment on above: Performed By: #### 2 415723 #### LUIS MANUEL [employer] [address] [place] [address] ALT [Catalytic activity/Vol] 22 Int._Unit/L Normal 10-52 [facility] Comment on above: Performed By: #### 2 311687 #### LUIS MANUEL [employer] [address] [place] [address] AST [Catalytic activity/Vol] 20 Int._Unit/L Normal 9-39 [facility] Comment on above: Performed By: #### 2 638803 #### LUIS MANUEL [employer] [address] [place] [address] Bili Total 0.8 mg/dL Normal 0.0-1.2 [facility] Comment on above: Performed By: #### 2 246578 #### LUIS MANUEL [employer] [address] [place] [address] Calcium [Mass/Vol] 8.8 mg/dL Normal 8.6-10.[address] [facility] Comment on above: Performed By: #### 2 807293 #### LUIS MANUEL [employer] [address] [place] [address] Chloride [Moles/Vol] 106 mmol/L Normal 98-107 [facility] Comment on above: Performed By: #### 2 446601 #### LUIS MANUEL [employer] [address] [place] [address] CO2 [Moles/Vol] 27.0 mmol/L Normal 21.0-32.0 [facility] Comment on above: Performed By: #### 2 829177 #### LUIS MANUEL [employer] [address] [place] [address] Creatinine [Mass/Vol] 0.8 mg/dL Normal 0.5-1.3 [facility] Comment on above: Performed By: #### 2 081730 #### LUIS MANUEL [employer] [address] [place] [address] Globulin (S) [Mass/Vol] 2.0 g/dL Normal 2.0-4.0 [facility] Comment on above: Performed By: #### 2 999637 #### LUIS MANUEL [employer] [address] [place] [address] Glucose [Mass/Vol] 89 mg/dL Normal 70-[address] [facility] Comment on above: Performed By: #### 2 764288 #### LUIS MANUEL [employer] [address] [place] [address] Potassium [Moles/Vol] 3.7 mmol/L Normal 3.5-5.3 [facility] Comment on above: Performed By: #### 2 076778 #### LUIS MANUEL [employer] [address] [place] [address] Protein [Mass/Vol] 5.6 g/dL Low 6.4-8.[address] [facility] Comment on above: Performed By: #### 2 519725 #### LUIS MANUEL [employer] [address] [place] [address] Sodium [Moles/Vol] 139 mmol/L Normal 136-[address] [facility] Comment on above: Performed By: #### 2 304666 #### LUIS MANUEL [employer] [address] [place] [address] Urea nitrogen [Mass/Vol] 21 mg/dL Normal 6-23 [facility] Comment on above: Performed By: #### 2 703809 #### LUIS MANUEL [employer] [address] [place] [address] Urea nitrogen/Creatinine [Mass ratio] 26.2 ratio Normal 5.4-30.0 [facility] Comment on above: Performed By: #### 2 263234 #### LUIS MANUEL [employer] [address] [place] [address] Anion gap [Moles/Vol] 10 mmol/L Normal 10-20 [facility] Comment on above: Performed By: #### 2 474552 #### LUIS MANUEL [employer] [address] [place] [address] LDL Directon 09-09-2018 Cholesterol in LDL [Mass/Vol] 106 mg/dL Normal 0-129 [facility] Comment on above: Performed By: #### 2 995185 #### LUIS MANUEL RemHemo [address] [place] [address] eGFRon 09-09-2018 GFR/1.73 sq M predicted among non-blacks MDRD (S/P/Bld) [Vol rate/Area] mL/min/{1.73_m2} Normal [facility] Comment on above: Order Comment: Order added by Discern Expert. Performed By: #### 1 [id number] #### LUIS MANUEL [employer] [address] [place] [address] Auto Diffon 08-30-2018 Basophils (Bld) [#/Vol] 0.1 E3/mcL Normal 0.0-0.2 [facility] Comment on above: Order Comment: Order Added by Discern Expert. Performed By: #### 2 397758 #### LUIS MANUEL RemHemo [address] [place] [address] Basophils/100 WBC (Bld) 0.8 % Normal 0.0-2.0 [facility] Comment on above: Order Comment: Order Added by Discern Expert. Performed By: #### 2 038081 #### LUIS MANUEL RemHemo [address] [place] [address] Eos Absolute 0.2 E3/mcL Normal 0.0-0.7 [facility] Comment on above: Order Comment: Order Added by Discern Expert. Performed By: #### 2 940904 #### LUIS MANUEL RemHemo [address] [place] [address] Eosinophils/100 WBC (Bld) 2.6 % Normal 0.0-11.0 [facility] Comment on above: Order Comment: Order Added by Discern Expert. Performed By: #### 2 970838 #### LUIS MANUEL RemHemo [address] [place] [address] Lymphocytes (Bld) [#/Vol] 1.3 E3/mcL Normal 1.2-3.4 [facility] Comment on above: Order Comment: Order Added by Discern Expert. Performed By: #### 2 240773 #### LUIS MANUEL RemHemo [address] [place] [address] Lymphocytes/100 WBC (Bld) 17.4 % Low 20.0-55.0 [facility] Comment on above: Order Comment: Order Added by Discern Expert. Performed By: #### 2 581090 #### LUIS MANUEL RemHemo [address] [place] [address] [place] Absolute 0.7 E3/mcL Normal 0.0-0.7 [facility] Comment on above: Order Comment: Order Added by Discern Expert. Performed By: #### 2 478377 #### LUIS MANUEL Bedollao [facility] [place] [id number] Monocytes/100 WBC (Bld) 9.2 % Normal 0.0-10.0 [facility] Comment on above: Order Comment: Order Added by Discern Expert. Performed By: #### 2 452471 #### LUIS MANUEL Bedollao [address] [place], [place] [address] Neutro Absolute 5.2 E3/mcL Normal 1.4-6.5 [facility] Comment on above: Order Comment: Order Added by Discern Expert. Performed By: #### 2 387656 #### LUIS MANUEL Bedollao [address] [place] [address] Neutro Auto 70.0 % Normal 37.0-75.0 [facility] Comment on above: Order Comment: Order Added by Discern Expert. Performed By: #### 2 643035 #### LUIS MANUEL Bedollao [address] [place], [place] [address] CBC w/ Auto Diffon 8 Erythrocyte distribution width (RBC) [Ratio] 14.0 % Normal 11.5-14.5 [facility] Comment on above: Performed By: #### 2 800842 #### LUIS MANUEL Bedollao [address] [place], [place] [address] Hematocrit (Bld) [Volume fraction] 40.9 % Low 42.0-52.0 [facility] Comment on above: Performed By: #### 2 783299 #### LUIS MANUEL Bedollao [address] [place], [place] [address] Hemoglobin (Bld) [Mass/Vol] 13.9 g/dL Normal 13.5-18.0 [facility] Comment on above: Performed By: #### 2 028392 #### LUIS MANUEL Bedollao [address] [place], [place] [address] MCH (RBC) [Entitic mass] 34.0 pg High 27.0-31.0 [facility] Comment on above: Performed By: #### 2 474867 #### LUIS MANUEL BoyerHemo [address] [place], [place] [address] MCHC (RBC) [Mass/Vol] 33.9 g/dL Normal 33.0-37.0 [facility] Comment on above: Performed By: #### 2 427048 #### LUIS MANUEL BoyerHemo [address] [place] [address] MCV (RBC) [Entitic vol] 100.3 fL High 78.0-100.0 [facility] Comment on above: Performed By: #### 2 731470 #### LUIS MANUEL BoyerHemo [address] [place] [address] Platelet mean volume (Bld) [Entitic vol] 7.9 fL Normal 7.4-11.0 [facility] Comment on above: Performed By: #### 2 220687 #### LUIS MANUEL BoyerHemo [facility] [place] [address] Platelets (Bld) [#/Vol] 247 E3/mcL Normal 130-400 [facility] Comment on above: Performed By: #### 2 788511 #### LUIS MANUEL BoyerHemo [facility] [place] [address] RBC (Bld) [#/Vol] 4.08 E6/mcL Normal 3.90-6.[address] [facility] Comment on above: Performed By: #### 2 645756 #### LUIS MANUEL BoyerHemo [facility] [place] [address] WBC (Bld) [#/Vol] 7.4 E3/mcL Normal 3.6-11.0 [facility] Comment on above: Performed By: #### 2 902963 #### LUIS MANUEL BoyerHemo [address] [place] [address] CMPon 08-30-2018 Albumin [Mass/Vol] 3.9 g/dL Normal 3.4-5.[address] [facility] Comment on above: Performed By: #### 2 614362 #### LUIS MANUEL [employer] [address] [place] [address] Albumin/Globulin [Mass ratio] 2.4 {ratio} High 1.1-1.9 [facility] Comment on above: Performed By: #### 2 876036 #### LUIS MANUEL [employer] [address] [place] [address] Alk Phos 64 Int._Unit/L Normal 33-136 [facility] Comment on above: Performed By: #### 2 409055 #### LUIS MANUEL [employer] [address] [place] [address] ALT [Catalytic activity/Vol] 20 Int._Unit/L Normal 10-52 [facility] Comment on above: Performed By: #### 2 848546 #### LUIS MANUEL [employer] [address] [place] [address] Anion gap [Moles/Vol] 9 mmol/L Low 10-20 [facility] Comment on above: Performed By: #### 2 327456 #### LUIS MANUEL [employer] [address] [place] [address] AST [Catalytic activity/Vol] 20 Int._Unit/L Normal 9-39 [facility] Comment on above: Performed By: #### 2 014987 #### LUIS MANUEL [employer] [address] [place] [address] Bili Total 0.8 mg/dL Normal 0.0-1.2 [facility] Comment on above: Performed By: #### 2 243097 #### LUIS MANUEL [employer] [address] [place] [address] Calcium [Mass/Vol] 8.8 mg/dL Normal 8.6-10.[address] [facility] Comment on above: Performed By: #### 2 044166 #### LUIS MANUEL [employer] [address] [place] [address] Chloride [Moles/Vol] 107 mmol/L Normal 98-107 [facility] Comment on above: Performed By: #### 2 761764 #### LUIS MANUEL [employer] [address] [place] [address] CO2 [Moles/Vol] 27.0 mmol/L Normal 21.0-32.0 [facility] Comment on above: Performed By: #### 2 211919 #### LUIS MANUEL [employer] [address] [place] [address] Creatinine [Mass/Vol] 0.8 mg/dL Normal 0.5-1.3 [facility] Comment on above: Performed By: #### 2 054653 #### LUIS MANUEL [employer] [address] [place] [address] Globulin (S) [Mass/Vol] 2.0 g/dL Normal 2.0-4.0 [facility] Comment on above: Performed By: #### 2 317822 #### LUIS MANUEL [facility] [address] [place] [address] Glucose [Mass/Vol] 88 mg/dL Normal 70-[address] [facility] Comment on above: Performed By: #### 2 [id number] #### LUIS MANUEL [employer] [address] [place] [address] Potassium [Moles/Vol] 3.9 mmol/L Normal 3.5-5.3 [facility] Comment on above: Performed By: #### 2 [id number] #### LUIS MANUEL [employer] [address] [place] [address] Protein [Mass/Vol] 5.5 g/dL Low 6.4-8.[address] [facility] Comment on above: Performed By: #### 2 [id number] #### LUIS MANUEL [employer] [facility] [place] [address] Sodium [Moles/Vol] 139 mmol/L Normal 136-[address] [facility] Comment on above: Performed By: #### 2 [id number] #### LUIS MANUEL [employer] [address] [place] [address] Urea nitrogen [Mass/Vol] 22 mg/dL Normal 6-23 [facility] Comment on above: Performed By: #### 2 [id number] #### LUIS MANUEL [employer] [address] [place] [address] Urea nitrogen/Creatinine [Mass ratio] 27.5 ratio Normal 5.4-30.0 [facility] Comment on above: Performed By: #### 2 [id number] #### LUIS MANUEL [employer] [address] [place] [address] eGFRon 08-30-2018 GFR/1.73 sq M predicted among non-blacks MDRD (S/P/Bld) [Vol rate/Area] mL/min/{1.73_m2} Normal [facility] Comment on above: Order Comment: Order added by Discern Expert. Performed By: #### 1 [id number] #### LUIS MANUEL [employer] [address] [place] [address] Auto Diffon 05-31-2018 Basophils (Bld) [#/Vol] 0.0 E3/mcL Normal 0.0-0.2 [facility] Comment on above: Order Comment: Order Added by Discern Expert. Performed By: #### 2 [id number] #### LUIS MANUEL [employer] [address] [place] [address] Basophils/100 WBC (Bld) 0.6 % Normal 0.0-2.0 [facility] Comment on above: Order Comment: Order Added by Discern Expert. Performed By: #### 2 [id number] #### LUIS MANUEL [employer] [address] [place] [address] Eos Absolute 0.2 E3/mcL Normal 0.0-0.7 [facility] Comment on above: Order Comment: Order Added by Discern Expert. Performed By: #### 2 [id number] #### LUIS MANUEL [employer] [address] [place] [address] Eosinophils/100 WBC (Bld) 2.6 % Normal 0.0-11.0 [facility] Comment on above: Order Comment: Order Added by Discern Expert. Performed By: #### 2 [id number] #### LUIS MANUEL [employer] [address] [place] [address] Lymphocytes (Bld) [#/Vol] 1.5 E3/mcL Normal 1.2-3.4 [facility] Comment on above: Order Comment: Order Added by Discern Expert. Performed By: #### 2 [id number] #### LUIS MANUEL [employer] [address] [place] [address] Lymphocytes/100 WBC (Bld) 19.5 % Low 20.0-55.0 [facility] Comment on above: Order Comment: Order Added by Discern Expert. Performed By: #### 2 [id number] #### LUIS MANUEL [employer] [address] [place] [address] Culberson Absolute 0.6 E3/mcL Normal 0.0-0.7 [facility] Comment on above: Order Comment: Order Added by Discern Expert. Performed By: #### 2 [id number] #### LUIS MANUEL [employer] [address] [place] [address] Monocytes/100 WBC (Bld) 8.2 % Normal 0.0-10.0 [facility] Comment on above: Order Comment: Order Added by Discern Expert. Performed By: #### 2 [id number] #### LUIS MANUEL [employer] [address] [place] [address] Neutro Absolute 5.4 E3/mcL Normal 1.4-6.5 [facility] Comment on above: Order Comment: Order Added by Discern Expert. Performed By: #### 2 [id number] #### LUIS MANUEL [employer] [address] [place] [address] Neutro Auto 69.1 % Normal 37.0-75.0 [facility] Comment on above: Order Comment: Order Added by Discern Expert. Performed By: #### 2 [id number] #### LUIS MANUEL [employer] [address] [place] [address] CBC w/ Auto Diffon 8 Erythrocyte distribution width (RBC) [Ratio] 13.2 % Normal 11.5-14.5 [facility] Comment on above: Performed By: #### 2 [id number] #### LUIS MANUEL [employer] [address] [place] [address] Hematocrit (Bld) [Volume fraction] 41.1 % Low 42.0-52.0 [facility] Comment on above: Performed By: #### 2 [id number] #### LUIS MANUEL [employer] [address] [place] [address] Hemoglobin (Bld) [Mass/Vol] 14.0 g/dL Normal 13.5-18.0 [facility] Comment on above: Performed By: #### 2 [id number] #### LUIS MANUEL [employer] [address] [place] [address] MCH (RBC) [Entitic mass] 34.4 pg High 27.0-31.0 [facility] Comment on above: Performed By: #### 2 [id number] #### LUIS MANUEL [employer] [address] [place] [address] MCHC (RBC) [Mass/Vol] 34.2 g/dL Normal 33.0-37.0 [facility] Comment on above: Performed By: #### 2 [id number] #### LUIS MANUEL [employer] [address] [place] [address] MCV (RBC) [Entitic vol] 100.5 fL High 78.0-100.0 [facility] Comment on above: Performed By: #### 2 [id number] #### LUIS MANUEL [employer] [address] [place] [address] Platelet mean volume (Bld) [Entitic vol] 8.2 fL Normal 7.4-11.0 [facility] Comment on above: Performed By: #### 2 [id number] #### LUIS MANUEL [employer] [address] [place] [address] Platelets (Bld) [#/Vol] 247 E3/mcL Normal 130-400 [facility] Comment on above: Performed By: #### 2 [id number] #### LUIS MANUEL [employer] [address] [place] [address] RBC (Bld) [#/Vol] 4.08 E6/mcL Normal 3.90-6.[address] [facility] Comment on above: Performed By: #### 2 [id number] #### LUIS MANUEL [employer] [address] [place] [address] WBC (Bld) [#/Vol] 7.9 E3/mcL Normal 3.6-11.0 [facility] Comment on above: Performed By: #### 2 [id number] #### LUIS MANUEL [employer] [address] [place] [address] CMPon 05-31-2018 Albumin [Mass/Vol] 3.7 g/dL Normal 3.2-5.[address] [facility] Comment on above: Performed By: #### 2 [id number] #### LUIS MANUEL [employer] [address] [place] [address] Albumin/Globulin [Mass ratio] 1.6 {ratio} Normal 1.1-1.9 [facility] Comment on above: Performed By: #### 2 [id number] #### LUIS MANUEL [employer] [address] [place] [address] Alk Phos 57 Int._Unit/L Normal 42-121 [facility] Comment on above: Performed By: #### 2 [id number] #### LUIS MANUEL [employer] [address] [place] [address] ALT [Catalytic activity/Vol] 29 Int._Unit/L Normal 10-40 [facility] Comment on above: Performed By: #### 2 [id number] #### LUIS MANUEL [employer] [address] [place] [address] AST [Catalytic activity/Vol] 25 Int._Unit/L Normal 10-42 [facility] Comment on above: Performed By: #### 2 [id number] #### LUIS MANUEL [employer] [address] [place] [address] Bili Total 1.0 mg/dL Normal 0.2-1.0 [facility] Comment on above: Performed By: #### 2 [id number] #### LUIS MANUEL [employer] [address] [place] [address] Calcium [Mass/Vol] 8.9 mg/dL Normal 8.4-10.[address] [facility] Comment on above: Performed By: #### 2 [id number] #### LUIS MANUEL [employer] [address] [place] [address] Chloride [Moles/Vol] 105 mmol/L Normal 98-107 [facility] Comment on above: Performed By: #### 2 [id number] #### LUIS MANUEL [employer] [address] [place] [address] CO2 [Moles/Vol] 24.6 mmol/L Normal 24.0-30.0 [facility] Comment on above: Performed By: #### 2 [id number] #### LUIS MANUEL [employer] [address] [place] [address] Creatinine [Mass/Vol] 0.8 mg/dL Normal 0.6-1.3 [facility] Comment on above: Performed By: #### 2 [id number] #### LUIS MANUEL [employer] [address] [place] [address] Globulin (S) [Mass/Vol] 2.3 g/dL Normal 2.0-4.0 [facility] Comment on above: Performed By: #### 2 [id number] #### LUIS MANUEL [employer] [address] [place] [address] Glucose [Mass/Vol] 92 mg/dL Normal 70-[address] [facility] Comment on above: Performed By: #### 2 [id number] #### LUIS MANUEL [employer] [address] [place] [address] Potassium [Moles/Vol] 3.5 mmol/L Normal 3.5-5.1 [facility] Comment on above: Performed By: #### 2 [id number] #### LUIS MANUEL [employer] [address] [place] [address] Protein [Mass/Vol] 6.0 g/dL Low 6.4-8.[address] [facility] Comment on above: Performed By: #### 2 [id number] #### LUIS MANUEL [employer] [address] [place] [address] Sodium [Moles/Vol] 139 mmol/L Normal 136-[address] [facility] Comment on above: Performed By: #### 2 [id number] #### LUIS MANUEL [employer] [address] [place] [address] Urea nitrogen [Mass/Vol] 23 mg/dL High 7-18 [facility] Comment on above: Performed By: #### 2 [id number] #### LUIS MANUEL [employer] [address] [place] [address] Urea nitrogen/Creatinine [Mass ratio] 28.8 ratio Normal 5.4-30.0 [facility] Comment on above: Performed By: #### 2 [id number] #### LUIS MANUEL [employer] [address] [place] [address] eGFRon 05-31-2018 GFR/1.73 sq M predicted among non-blacks MDRD (S/P/Bld) [Vol rate/Area] mL/min/{1.73_m2} Normal [facility] Comment on above: Order Comment: Order added by Discern Expert. Performed By: #### 1 [id number] #### LUIS MANUEL [employer] [address] [place] [address] No Panel Information [facility] Vital Signs Date Time Vital Sign Value Performing Clinician Facility 08-09-2025 13:00-0400 Body temperature 97 [degF] Kelsey Patel MD Work Phone: [facility] 08-09-2025 13:00-0400 Diastolic blood pressure 81 mm[Hg] Kelsey Patel MD Work Phone: [facility] 08-09-2025 13:00-0400 Heart rate 62 /min Kelsey Patel MD Work Phone: [facility] 08-09-2025 13:00-0400 Respiratory rate 17 /min Kelsey Patel MD Work Phone: [facility] 08-09-2025 13:00-0400 SaO2% (BldA) [Mass fraction] 95 % Kelsey Patel MD Work Phone: [facility] 08-09-2025 13:00-0400 Systolic blood pressure 137 mm[Hg] Kelsey Patel MD Work Phone: [facility] 08-06-2025 14:42-0400 Body height 167.6 cm Kelsey Patel MD Work Phone: [facility] 08-06-2025 14:42-0400 Body mass index (BMI) [Ratio] 23.24 kg/m2 Kelsey Patel MD Work Phone: [facility] 08-06-2025 14:42-0400 Body weight 65.3 kg Kelsey Patel MD Work Phone: [facility] 08-04-2025 11:24-0400 Diastolic blood pressure 67 mm[Hg] Santiago Menendez DO Work Phone: [facility] 08-04-2025 11:24-0400 Heart rate 66 /min Santiago Menendez DO Work Phone: [facility] 08-04-2025 11:24-0400 Respiratory rate 18 /min Santiago Menendez DO Work Phone: [facility] 08-04-2025 11:24-0400 SaO2% (BldA) [Mass fraction] 98 % Santiago Menendez DO Work Phone: [facility] 08-04-2025 11:24-0400 Systolic blood pressure 160 mm[Hg] Santiago Menendez DO Work Phone: [facility] 08-04-2025 07:27-0400 Body height 167.6 cm Santiago Menendez DO Work Phone: [facility] 08-04-2025 07:27-0400 Body mass index (BMI) [Ratio] 23.24 kg/m2 Santiago Menendez DO Work Phone: [facility] 08-04-2025 07:27-0400 Body temperature 97.81 [degF] Santiago Menendez DO Work Phone: [facility] 08-04-2025 07:27-0400 Body weight 65.32 kg Santiago Menendez DO Work Phone: [facility] 07-31-2025 13:50-0400 Body height 167.6 cm Don Barrera MD Work Phone: [facility] 07-31-2025 13:50-0400 Body mass index (BMI) [Ratio] 23.21 kg/m2 Don Barrera MD Work Phone: [facility] 07-31-2025 13:50-0400 Body weight 65.23 kg Don Barrera MD Work Phone: [facility] 07-31-2025 13:50-0400 Diastolic blood pressure 50 mm[Hg] Don Barrera MD Work Phone: [facility] 07-31-2025 13:50-0400 Heart rate 68 /min Don Barrera MD Work Phone: [facility] 07-31-2025 13:50-0400 SaO2% (BldA) [Mass fraction] 95 % Don Barrera MD Work Phone: [facility] 07-31-2025 13:50-0400 Systolic blood pressure 90 mm[Hg] Don Barrera MD Work Phone: [facility] 07-17-2025 08:17-0400 Body height 167.6 cm Don Barrera MD Work Phone: [facility] 07-17-2025 08:17-0400 Body mass index (BMI) [Ratio] 23.37 kg/m2 Don Barrera MD Work Phone: [facility] 07-17-2025 08:17-0400 Body weight 65.68 kg Don Barrera MD Work Phone: [facility] 07-17-2025 08:17-0400 Diastolic blood pressure 60 mm[Hg] Don Barrera MD Work Phone: [facility] 07-17-2025 08:17-0400 Heart rate 99 /min Don Barrera MD Work Phone: [facility] 07-17-2025 08:17-0400 SaO2% (BldA) [Mass fraction] 97 % Don Barrera MD Work Phone: [facility] 07-17-2025 08:17-0400 Systolic blood pressure 100 mm[Hg] Don Barrera MD Work Phone: [facility] 07-16-2025 13:24-0400 Body temperature 98.1 [degF] Dr. Devan Barrera MD Work Phone: [facility] 07-16-2025 13:24-0400 Diastolic blood pressure 58 mm[Hg] Dr. Devan Barrera MD Work Phone: [facility] 07-16-2025 13:24-0400 Heart rate 83 /min Dr. Devan Barrera MD Work Phone: [facility] 07-16-2025 13:24-0400 Respiratory rate 16 /min Dr. Devan Barrera MD Work Phone: [facility] 07-16-2025 13:24-0400 SaO2% (BldA) [Mass fraction] 95 % Dr. Devan Barrera MD Work Phone: [facility] 07-16-2025 13:24-0400 Systolic blood pressure 100 mm[Hg] Dr. Devan Barrera MD Work Phone: 9(297)548-510980 [place] [address] 07-14-2025 14:00-0400 Body mass index (BMI) [Ratio] 23.4 kg/m2 Dr. Devan Barrera MD Work Phone: 7(247)097-766180 [place] [address] 07-14-2025 14:00-0400 Body weight 65.[address] Devan Barrera MD Work Phone: 5(919)253-913880 [place] [address] 07-08-2025 14:55-0400 Body height 167.[address] Devan Barrera MD Work Phone: 6(571)851-444380 [place] [address] 06-17-2025 17:52-0400 Diastolic blood pressure 66 mm[Hg] Dr. Devan Barrera MD Work Phone: 2(143)349-759280 [place] [address] 06-17-2025 17:52-0400 Heart rate 77 /min Dr. Devan Barrera MD Work Phone: 0(306)628-522780 [place] [address] 06-17-2025 17:52-0400 Respiratory rate 18 /min Dr. Devan Barrera MD Work Phone: 7(623)175-283480 [place] [address] 06-17-2025 17:52-0400 SaO2% (BldA) [Mass fraction] 94 % Dr. Devan Barrera MD Work Phone: 7(147)445-170980 [place] [address] 06-17-2025 17:52-0400 Systolic blood pressure 126 mm[Hg] Dr. Devan Barrera MD Work Phone: 1(649)384-102480 [place] [address] 06-17-2025 17:29-0400 Body temperature 98.4 [degF] Dr. Devan Barrera MD Work Phone: 8(265)113-071280 [place] [address] 06-17-2025 17:29-0400 Diastolic blood pressure 70 mm[Hg] Dr. Devan Barrera MD Work Phone: 8(718)446-170980 [place] [address] 06-17-2025 17:29-0400 Heart rate 78 /min Dr. Devan Barrera MD Work Phone: [facility] 06-17-2025 17:29-0400 Respiratory rate 16 /min Dr. Devan Barrera MD Work Phone: [facility] 06-17-2025 17:29-0400 SaO2% (BldA) [Mass fraction] 97 % Dr. Devan Barrera MD Work Phone: 9(003)735-344180 [place] [address] 06-17-2025 17:29-0400 Systolic blood pressure 136 mm[Hg] Dr. Devan Barrera MD Work Phone: 9(962)640-015880 [place] [address] 06-17-2025 14:38-0400 Body height 167.[address] Devan Barrera MD Work Phone: 6(401)901-939280 [place] [address] 06-17-2025 14:38-0400 Body mass index (BMI) [Ratio] 24.1 kg/m2 Dr. Devan Barrera MD Work Phone: 7(906)897-812080 [place] [address] 06-17-2025 14:38-0400 Body weight 67.[address] Devan Barrera MD Work Phone: 0(762)243-534980 [place] [address] 06-17-2025 12:38-0400 Body weight 65.[address] Devan Barrera MD Work Phone: 1(877)428-148380 [place] [address] 06-17-2025 10:01-0400 Body temperature 97.6 [degF] Dr. Devan Barrera MD Work Phone: 1(886)067-099380 [place] [address] 06-16-2025 15:00-0400 Body mass index (BMI) [Ratio] 23.1 kg/m2 Dr. Devan Barrera MD Work Phone: 7(856)381-250380 [place] [address] 06-01-2025 13:16-0400 Heart rate 79 /min Dr. Devan Barrera MD Work Phone: 8(607)332-126180 [place] [address] 06-01-2025 13:16-0400 Inhaled oxygen flow rate 98 L/min Dr. Devan Barrera MD Work Phone: 8(190)663-253580 [place] [address] 06-01-2025 13:16-0400 Respiratory rate 20 /min Dr. Devan Barrera MD Work Phone: [facility] 06-01-2025 06:40-0400 SaO2% (BldA) [Mass fraction] 92 % Dr. Devan Barrera MD Work Phone: 9(107)534-882880 [place] [address] 05-31-2025 10:54-0400 Body temperature 97.8 [degF] Dr. Devan Barrera MD Work Phone: 9(971)012-384380 [place] [address] 05-31-2025 10:54-0400 Diastolic blood pressure 57 mm[Hg] Dr. Devan Barrera MD Work Phone: 2(068)581-089480 [place] [address] 05-31-2025 10:54-0400 Systolic blood pressure 114 mm[Hg] Dr. Devan Barrera MD Work Phone: 7(282)466-568980 [place] [address] 05-27-2025 15:10-0400 Heart rate 85 /min Dr. Devan Barrera MD Work Phone: 6(307)847-333480 [place] [address] 05-27-2025 15:10-0400 Respiratory rate 18 /min Dr. Devan Barrera MD Work Phone: 6(395)123-818280 [place] [address] 05-27-2025 14:48-0400 Body height 167.[address] Devan Barrera MD Work Phone: 6(026)754-185780 [place] [address] 05-27-2025 14:48-0400 Body weight 63.[address] Devan Barrera MD Work Phone: 9(415)113-633380 [place] [address] 05-27-2025 11:34-0400 Inhaled oxygen flow rate 2 L/min Dr. Devan Barrera MD Work Phone: 9(092)423-621280 [place] [address] 05-27-2025 10:49-0400 SaO2% (BldA) [Mass fraction] 96 % Dr. Devan Barrera MD Work Phone: 4(810)068-450180 [place] [address] 05-27-2025 10:31-0400 Diastolic blood pressure 63 mm[Hg] Dr. Devan Barrera MD Work Phone: [facility] 05-27-2025 10:31-0400 Systolic blood pressure 140 mm[Hg] Dr. Devan Barrera MD Work Phone: [facility] 05-27-2025 10:00-0400 Body temperature 98.1 [degF] Dr. Devan Barrera MD Work Phone: [facility] 05-26-2025 22:18-0400 Diastolic blood pressure 64 mm[Hg] Dr. Devan Barrera MD Work Phone: [facility] 05-26-2025 22:18-0400 Heart rate 82 /min Dr. Devan Barrera MD Work Phone: [facility] 05-26-2025 22:18-0400 Systolic blood pressure 119 mm[Hg] Dr. Devan Barrera MD Work Phone: [facility] 05-26-2025 22:15-0400 Inhaled oxygen flow rate 2 L/min Dr. Devan Barrera MD Work Phone: [facility] 05-26-2025 22:15-0400 SaO2% (BldA) [Mass fraction] 98 % Dr. Devan Barrera MD Work Phone: [facility] 05-26-2025 19:05-0400 Respiratory rate 18 /min Dr. Devan Barrera MD Work Phone: [facility] 05-26-2025 15:42-0400 Body temperature 98.3 [degF] Dr. Devan Barrera MD Work Phone: [facility] 05-26-2025 09:15-0400 Body temperature 99.3 [degF] Dr. Devan Barrera MD Work Phone: [facility] 05-26-2025 09:15-0400 Diastolic blood pressure 51 mm[Hg] Dr. Devan Barrera MD Work Phone: [facility] 05-26-2025 09:15-0400 Heart rate 85 /min Dr. Devan Barrera MD Work Phone: [facility] 05-26-2025 09:15-0400 Inhaled oxygen flow rate 4 L/min Dr. Devan Barrera MD Work Phone: [facility] 05-26-2025 09:15-0400 Respiratory rate 20 /min Dr. Devan Barrera MD Work Phone: [facility] 05-26-2025 09:15-0400 SaO2% (BldA) [Mass fraction] 96 % Dr. Devan Barrera MD Work Phone: [facility] 05-26-2025 09:15-0400 Systolic blood pressure 99 mm[Hg] Dr. Devan Barrera MD Work Phone: [facility] 05-26-2025 06:17-0400 Body height 167.[address] Devan Barrera MD Work Phone: [facility] 05-26-2025 06:17-0400 Body mass index (BMI) [Ratio] 23.5 kg/m2 Dr. Devan Barrera MD Work Phone: [facility] 05-26-2025 06:17-0400 Body weight 66.[address] Devan Barrera MD Work Phone: [facility] 05-21-2025 12:27-0400 Body weight 63.[address] Devan Barrera MD Work Phone: [facility] 05-20-2025 18:06-0400 Body mass index (BMI) [Ratio] 22.6 kg/m2 Dr. Devan Barrera MD Work Phone: [facility] 05-20-2025 13:00-0400 Heart rate 81 /min Carri Greer MD Work Phone: [facility] 05-20-2025 13:00-0400 SaO2% (BldA) [Mass fraction] 89 % Carri Greer MD Work Phone: [facility] 05-20-2025 12:45-0400 Body temperature 97.7 [degF] Carri Greer MD Work Phone: [facility] 05-20-2025 12:45-0400 Diastolic blood pressure 78 mm[Hg] Carri Greer MD Work Phone: [facility] 05-20-2025 12:45-0400 Respiratory rate 16 /min Carri Greer MD Work Phone: [facility] 05-20-2025 12:45-0400 Systolic blood pressure 149 mm[Hg] Carri Greer MD Work Phone: [facility] 05-10-2025 21:57-0400 Body height 167.6 cm Carri Greer MD Work Phone: [facility] 05-10-2025 21:57-0400 Body mass index (BMI) [Ratio] 23.57 kg/m2 Carri Greer MD Work Phone: [facility] 05-10-2025 21:57-0400 Body weight 66.22 kg Carri Greer MD Work Phone: [facility] 05-10-2025 20:16-0400 Diastolic blood pressure 57 mm[Hg] Santiago Menendez DO Work Phone: [facility] 05-10-2025 20:16-0400 Heart rate 85 /min Santiago Menendez DO Work Phone: [facility] 05-10-2025 20:16-0400 Respiratory rate 16 /min Santiago Menendez DO Work Phone: [facility] 05-10-2025 20:16-0400 SaO2% (BldA) [Mass fraction] 93 % Santiago Menendez DO Work Phone: [facility] 05-10-2025 20:16-0400 Systolic blood pressure 108 mm[Hg] Santiago Menendez DO Work Phone: [facility] 05-10-2025 13:56-0400 Body height 167.6 cm Santiago Menendez DO Work Phone: [facility] 05-10-2025 13:56-0400 Body mass index (BMI) [Ratio] 23.57 kg/m2 Santiago Menendez DO Work Phone: [facility] 05-10-2025 13:56-0400 Body temperature 97.9 [degF] Santiago Menendez DO Work Phone: [facility] 05-10-2025 13:56-0400 Body weight 66.22 kg Santiago Menendez DO Work Phone: [facility] 05-07-2025 15:22-0400 Body height 167.6 cm Don Barrera MD Work Phone: [facility] 05-07-2025 15:22-0400 Body mass index (BMI) [Ratio] 23.6 kg/m2 Don Barrera MD Work Phone: [facility] 05-07-2025 15:22-0400 Body weight 66.32 kg Don Barrera MD Work Phone: [facility] 05-07-2025 15:22-0400 Diastolic blood pressure 70 mm[Hg] Don Barrera MD Work Phone: [facility] 05-07-2025 15:22-0400 Heart rate 71 /min Don Barrera MD Work Phone: [facility] 05-07-2025 15:22-0400 SaO2% (BldA) [Mass fraction] 95 % Don Barrera MD Work Phone: [facility] 05-07-2025 15:22-0400 Systolic blood pressure 120 mm[Hg] Don Barrera MD Work Phone: [facility] 04-10-2025 11:09-0400 Body height 167.6 cm Lincoln King [employer] Work Phone: [facility] 04-10-2025 11:09-0400 Body mass index (BMI) [Ratio] 24.37 kg/m2 Lincoln King [employer] Work Phone: [facility] 04-10-2025 11:09-0400 Body temperature 97.59 [degF] Lincoln Christine [employer] Work Phone: [facility] 04-10-2025 11:090400 Body weight 68.49 kg Lincoln Collierta [employer] Work Phone: [facility] 04-10-2025 11:09-0400 Diastolic blood pressure 79 mm[Hg] Lincoln Collierta [employer] Work Phone: [facility] 04-10-2025 11:09-0400 SaO2% (BldA) [Mass fraction] 97 % Lincoln Collierta [employer] Work Phone: [facility] 04-10-2025 11:09-0400 Systolic blood pressure 144 mm[Hg] Lincoln Collierta [employer] Work Phone: [facility] 04-10-2025 07:57-0400 Body temperature 97.7 [degF] Eladio Kingsley Jr., DPM Work Phone: [facility] 04-10-2025 07:57-0400 Diastolic blood pressure 74 mm[Hg] Eladio Kingsley Jr., DPM Work Phone: [facility] 04-10-2025 07:57-0400 Heart rate 59 /min Eladio Kingsley Jr., DPM Work Phone: [facility] 04-10-2025 07:57-0400 Systolic blood pressure 125 mm[Hg] Eladio Kingsley Jr., DPM Work Phone: [facility] 01-09-2025 08:09-0400 Body temperature 97.59 [degF] Eladio Kingsley Jr., DPM Work Phone: [facility] 01-09-2025 08:09-0400 Diastolic blood pressure 72 mm[Hg] Eladio Kingsley Jr., DPM Work Phone: [facility] 01-09-2025 08:09-0400 Heart rate 60 /min Eladio Kingsley Jr., DPM Work Phone: [facility] 01-09-2025 08:09-0400 Systolic blood pressure 127 mm[Hg] Eladio Kingsley Jr., DPM Work Phone: [facility] 11-20-2024 07:59-0500 Body height 167.6 cm Don Barrera MD Work Phone: [facility] 11-20-2024 07:59-0500 Body mass index (BMI) [Ratio] 24.66 kg/m2 Don Barrera MD Work Phone: [facility] 11-20-2024 07:59-0500 Body weight 69.31 kg Don Barrera MD Work Phone: [facility] 11-20-2024 07:59-0500 Diastolic blood pressure 70 mm[Hg] Don Barrera MD Work Phone: [facility] 11-20-2024 07:59-0500 Heart rate 65 /min Don Barrera MD Work Phone: [facility] 11-20-2024 07:59-0500 SaO2% (BldA) [Mass fraction] 99 % Don Barrera MD Work Phone: [facility] 11-20-2024 07:59-0500 Systolic blood pressure 110 mm[Hg] Don Barrera MD Work Phone: [facility] 10-01-2024 08:02-0500 Diastolic blood pressure 73 mm[Hg] Eladio Kingsley Jr., DPM Work Phone: [facility] 10-01-2024 08:02-0500 Heart rate 59 /min Eladio Kingsley Jr., DPM Work Phone: [facility] 10-01-2024 08:02-0500 Systolic blood pressure 135 mm[Hg] Eladio Kingsley Jr., DPM Work Phone: [facility] 10-01-2024 07:58-0500 Body temperature 98.2 [degF] Eladio Kingsley Jr., DPM Work Phone: [facility] 09-01-2024 11:43-0500 Body height 167.6 cm Don Barrera MD Work Phone: [facility] 09-01-2024 11:43-0500 Body mass index (BMI) [Ratio] 24.31 kg/m2 Don Barrera MD Work Phone: [facility] 09-01-2024 11:43-0500 Body weight 68.31 kg Don Barrera MD Work Phone: [facility] 09-01-2024 11:43-0500 Diastolic blood pressure 80 mm[Hg] Don Barrera MD Work Phone: [facility] 09-01-2024 11:43-0500 Heart rate 139 /min Don Barrera MD Work Phone: [facility] 09-01-2024 11:43-0500 SaO2% (BldA) [Mass fraction] 96 % Don Barrera MD Work Phone: [facility] 09-01-2024 11:43-0500 Systolic blood pressure 150 mm[Hg] Don Barrera MD Work Phone: [facility] 07-03-2024 11:57-0400 Body height 167.6 cm Otoniel Salcedo MD Work Phone: [facility] 07-03-2024 11:57-0400 Body mass index (BMI) [Ratio] 24.16 kg/m2 Otoniel Salcedo MD Work Phone: [facility] 07-03-2024 11:57-0400 Body weight 67.9 kg Otoniel Salcedo MD Work Phone: [facility] 07-03-2024 11:57-0400 Diastolic blood pressure 62 mm[Hg] Otoniel Salcedo MD Work Phone: [facility] 07-03-2024 11:57-0400 Heart rate 63 /min Otoniel Salcedo MD Work Phone: [facility] 07-03-2024 11:57-0400 SaO2% (BldA) [Mass fraction] 96 % Otoniel Salcedo MD Work Phone: [facility] 07-03-2024 11:57-0400 Systolic blood pressure 126 mm[Hg] Otoniel Salcedo MD Work Phone: [facility] 06-06-2024 07:58-0400 Body temperature 97.9 [degF] Eladio Kingsley Jr., DPM Work Phone: [facility] 06-06-2024 07:58-0400 Diastolic blood pressure 63 mm[Hg] Eladio Kingsley Jr., DPM Work Phone: [facility] 06-06-2024 07:58-0400 Heart rate 71 /min Eladio Kingsley Jr., DPM Work Phone: [facility] 06-06-2024 07:58-0400 Systolic blood pressure 105 mm[Hg] Eladio Kingsley Jr., DPM Work Phone: [facility] 02-29-2024 07:59-0400 Body temperature 97.2 [degF] Eladio Kingsley Jr., DPM Work Phone: [facility] 02-29-2024 07:59-0400 Diastolic blood pressure 80 mm[Hg] Eladio Kingsley Jr., DPM Work Phone: [facility] 02-29-2024 07:59-0400 Heart rate 64 /min Eladio Kingsley Jr., DPM Work Phone: [facility] 02-29-2024 07:59-0400 Systolic blood pressure 144 mm[Hg] Eladio Kingsley Jr., DPM Work Phone: [facility] 02-12-2024 09:13-0400 Body mass index (BMI) [Ratio] 24.29 kg/m2 Sage Kwon MD Work Phone: [facility] 02-12-2024 09:13-0400 Body weight 68.27 kg Sage Kwon MD Work Phone: [facility] 02-12-2024 09:13-0400 Diastolic blood pressure 73 mm[Hg] Sage Kwon MD Work Phone: [facility] 02-12-2024 09:13-0400 Heart rate 70 /min Sage Kwon MD Work Phone: [facility] 02-12-2024 09:13-0400 Respiratory rate 16 /min Sage Kwon MD Work Phone: [facility] 02-12-2024 09:13-0400 SaO2% (BldA) [Mass fraction] 97 % Sage Kwon MD Work Phone: [facility] 02-12-2024 09:13-0400 Systolic blood pressure 138 mm[Hg] Sage Kwon MD Work Phone: [facility] 12-07-2023 13:00-0500 Diastolic blood pressure 58 mm[Hg] Celso Cabezas DO Work Phone: [facility] 12-07-2023 13:00-0500 Heart rate 73 /min Celso Cabezas DO Work Phone: [facility] 12-07-2023 13:00-0500 Respiratory rate 18 /min Celso Cabezas DO Work Phone: [facility] 12-07-2023 13:00-0500 SaO2% (BldA) [Mass fraction] 97 % Celso Cabezas DO Work Phone: [facility] 12-07-2023 13:00-0500 Systolic blood pressure 118 mm[Hg] Celso Cabezas DO Work Phone: [facility] 12-07-2023 10:01-0500 Body height 167.6 cm Celso Cabezas DO Work Phone: [facility] 12-07-2023 10:01-0500 Body mass index (BMI) [Ratio] 29.05 kg/m2 Celso Cabezas DO Work Phone: [facility] 12-07-2023 10:01-0500 Body temperature 96.91 [degF] Celso Cabezas DO Work Phone: [facility] 12-07-2023 10:01-0500 Body weight 81.65 kg Celso Cabezas DO Work Phone: [facility] 11-30-2023 07:59-0500 Body temperature 98.29 [degF] Eladio Kingsley Jr., DPM Work Phone: [facility] 11-30-2023 07:59-0500 Diastolic blood pressure 73 mm[Hg] Eladio Kingsley Jr., DPM Work Phone: [facility] 11-30-2023 07:59-0500 Heart rate 68 /min Eladio Kingsley Jr., DPM Work Phone: [facility] 11-30-2023 07:59-0500 Systolic blood pressure 125 mm[Hg] Eladio Kingsley Jr., DPM Work Phone: [facility] 11-15-2023 19:43-0500 Diastolic blood pressure 60 mm[Hg] Celso Davin DO Work Phone: [facility] 11-15-2023 19:43-0500 Heart rate 70 /min Celso Davin DO Work Phone: [facility] 11-15-2023 19:43-0500 Respiratory rate 16 /min Celso Cabezas DO Work Phone: [facility] 11-15-2023 19:43-0500 SaO2% (BldA) [Mass fraction] 98 % Celso Cabezas DO Work Phone: [facility] 11-15-2023 19:43-0500 Systolic blood pressure 157 mm[Hg] Celso Cabezas DO Work Phone: [facility] 11-15-2023 15:58-0500 Body height 167.6 cm Celso Cabezas DO Work Phone: [facility] 11-15-2023 15:58-0500 Body mass index (BMI) [Ratio] 25.18 kg/m2 Celso Cabezas DO Work Phone: [facility] 11-15-2023 15:58-0500 Body weight 70.76 kg Celso Cabezas DO Work Phone: [facility] 11-15-2023 15:56-0500 Body temperature 97.39 [degF] Celso Cabezas DO Work Phone: [facility] 11-15-2023 08:13-0500 Body height 167.6 cm Daysi Arenas DO Work Phone: [facility] 11-15-2023 08:13-0500 Body mass index (BMI) [Ratio] 25.24 kg/m2 Daysi Thomae DO Work Phone: [facility] 11-15-2023 08:13-0500 Body weight 70.94 kg Daysi Thomae DO Work Phone: [facility] 11-11-2023 22:23-0500 Diastolic blood pressure 69 mm[Hg] Sai Myers MD Work Phone: [facility] 11-11-2023 22:23-0500 Heart rate 88 /min Sai Myers MD Work Phone: [facility] 11-11-2023 22:23-0500 Respiratory rate 16 /min Sai Myers MD Work Phone: [facility] 11-11-2023 22:23-0500 Systolic blood pressure 162 mm[Hg] Sai Myers MD Work Phone: [facility] 11-11-2023 20:45-0500 Body height 167.6 cm Sai Myers MD Work Phone: [facility] 11-11-2023 20:45-0500 Body mass index (BMI) [Ratio] 25.82 kg/m2 Sai Myers MD Work Phone: [facility] 11-11-2023 20:45-0500 Body temperature 97.7 [degF] Sai Myers MD Work Phone: [facility] 11-11-2023 20:45-0500 Body weight 72.58 kg Sai Myers MD Work Phone: [facility] 11-11-2023 20:45-0500 SaO2% (BldA) [Mass fraction] 97 % Sai Myers MD Work Phone: [facility] 11-05-2023 08:06-0500 Body height 167.6 cm Don Barrera MD Work Phone: [facility] 11-05-2023 08:06-0500 Body mass index (BMI) [Ratio] 25.24 kg/m2 Don Barrera MD Work Phone: [facility] 11-05-2023 08:06-0500 Body weight 70.94 kg Don Barrera MD Work Phone: [facility] 11-05-2023 08:06-0500 Diastolic blood pressure 62 mm[Hg] Don Barrera MD Work Phone: [facility] 11-05-2023 08:06-0500 Heart rate 65 /min Don Barrera MD Work Phone: [facility] 11-05-2023 08:06-0500 SaO2% (BldA) [Mass fraction] 99 % Don Barrera MD Work Phone: [facility] 11-05-2023 08:06-0500 Systolic blood pressure 130 mm[Hg] Don Barrera MD Work Phone: [facility] 11-01-2023 13:09-0500 Body height 167.6 cm Daysi Raffaeleae DO Work Phone: [facility] 11-01-2023 13:09-0500 Body mass index (BMI) [Ratio] 25.6 kg/m2 Daysi Thomae DO Work Phone: [facility] 11-01-2023 13:09-0500 Body weight 71.94 kg Daysi Castorenaae DO Work Phone: [facility] 10-31-2023 07:58-0500 Body temperature 97.9 [degF] Eladio Kingsley Jr., DPM Work Phone: [facility] 10-31-2023 07:58-0500 Diastolic blood pressure 69 mm[Hg] Eladio Kingsley Jr., DPM Work Phone: [facility] 10-31-2023 07:58-0500 Heart rate 67 /min Eladio Kingsley Jr., DPM Work Phone: [facility] 10-31-2023 07:58-0500 Systolic blood pressure 116 mm[Hg] Eladio Kingsley Jr., DPM Work Phone: [facility] 10-24-2023 08:43-0500 Diastolic blood pressure 77 mm[Hg] Eladio Kingsley Jr., DPM Work Phone: [facility] 10-24-2023 08:43-0500 Heart rate 58 /min Eladio Kingsley Jr., DPM Work Phone: [facility] 10-24-2023 08:43-0500 Systolic blood pressure 148 mm[Hg] Eladio Sancho Jr., DPM Work Phone: [facility] 10-24-2023 08:27-0500 Body temperature 98.2 [degF] Eladio Sancho Jr., DPM Work Phone: [facility] 10-12-2023 08:07-0500 Diastolic blood pressure 75 mm[Hg] Eladio Sancho Jr., DPM Work Phone: [facility] 10-12-2023 08:07-0500 Heart rate 65 /min Eladio Dillon Jr., DPM Work Phone: [facility] 10-12-2023 08:07-0500 Systolic blood pressure 148 mm[Hg] Eladio Sancho Jr., DPM Work Phone: [facility] 10-12-2023 08:01-0500 Body temperature 98.2 [degF] Eladio Sancho Jr., DPM Work Phone: [facility] 10-06-2023 12:15-0500 Body height 167.6 cm Clark Lees PA-C Work Phone: [facility] 10-06-2023 12:15-0500 Body mass index (BMI) [Ratio] 25.66 kg/m2 Clark Lees PA-C Work Phone: [facility] 10-06-2023 12:15-0500 Body temperature 97.39 [degF] Clark Morrisonine PA-C Work Phone: [facility] 10-06-2023 12:15-0500 Body weight 72.12 kg Clark Morrisonine PA-C Work Phone: [facility] 10-06-2023 12:15-0500 Diastolic blood pressure 83 mm[Hg] Clark Morrisonine PA-C Work Phone: [facility] 10-06-2023 12:15-0500 Heart rate 72 /min Clark Nabeel PA-C Work Phone: [facility] 10-06-2023 12:15-0500 Respiratory rate 14 /min Clark Nabeel PA-C Work Phone: [facility] 10-06-2023 12:15-0500 SaO2% (BldA) [Mass fraction] 96 % Clark Nabeel PA-C Work Phone: [facility] 10-06-2023 12:15-0500 Systolic blood pressure 173 mm[Hg] Clark Nabeel PA-C Work Phone: [facility] 09-28-2023 14:21-0500 Body height 167.6 cm Don Barrera MD Work Phone: [facility] 09-28-2023 14:21-0500 Body mass index (BMI) [Ratio] 25.66 kg/m2 Don Barrera MD Work Phone: [facility] 09-28-2023 14:21-0500 Body weight 72.12 kg Don Barrera MD Work Phone: [facility] 09-28-2023 14:21-0500 Diastolic blood pressure 66 mm[Hg] Don Barrera MD Work Phone: [facility] 09-28-2023 14:21-0500 Heart rate 78 /min Don Barrera MD Work Phone: [facility] 09-28-2023 14:21-0500 SaO2% (BldA) [Mass fraction] 96 % Don Barrera MD Work Phone: [facility] 09-28-2023 14:21-0500 Systolic blood pressure 120 mm[Hg] Don Barrera MD Work Phone: 8(892)979-734148 [place] [address] 07-23-2023 01:01-0400 Diastolic blood pressure 76 mm[Hg] Sai Myers MD Work Phone: [facility] 07-23-2023 01:01-0400 Heart rate 60 /min Sai Myers MD Work Phone: [facility] 07-23-2023 01:01-0400 Respiratory rate 16 /min Sai Myers MD Work Phone: [facility] 07-23-2023 01:01-0400 SaO2% (BldA) [Mass fraction] 94 % Sai Myers MD Work Phone: [facility] 07-23-2023 01:01-0400 Systolic blood pressure 146 mm[Hg] Sai Myers MD Work Phone: [facility] 07-22-2023 21:49-0400 Body height 167.6 cm Sai Myers MD Work Phone: [facility] 07-22-2023 21:49-0400 Body mass index (BMI) [Ratio] 25.82 kg/m2 Sai Myers MD Work Phone: [facility] 07-22-2023 21:49-0400 Body temperature 97.7 [degF] Sai Myers MD Work Phone: [facility] 07-22-2023 21:49-0400 Body weight 72.58 kg Sai Myers MD Work Phone: [facility] 06-21-2023 08:29-0400 Body height 165.1 cm Don Barrera Work Phone: LR-Mtutoljxeh-Xnkp [address] Work Phone: 06-21-2023 08:29-0400 Body mass index (BMI) [Ratio] 26.5 kg/m2 Don Barrera Work Phone: AO-Mjdezryfxj-Aqen [address] Work Phone: 06-21-2023 08:29-0400 Body surface area Derived from formula 1.8 m2 Don Barrera Work Phone: MR-Ulqntnqgpp-Rlkk [address] Work Phone: 06-21-2023 08:29-0400 Body weight 72.24 kg Don Barrera Work Phone: VC-Bqobbncoho-Hvxr [address] Work Phone: 06-21-2023 08:29-0400 Diastolic blood pressure 60 mm[Hg] Don Barrera Work Phone: IZ-Pishmhkyvf-Rxbv [address] Work Phone: 06-21-2023 08:29-0400 Heart rate 91 /min Don Barrera Work Phone: AY-Oopllmqojl-Uggt [address] Work Phone: 06-21-2023 08:29-0400 SaO2% (BldA) [Mass fraction] 96 % Don Barrera Work Phone: BB-Qwzlowavla-Ayib [address] Work Phone: 06-21-2023 08:29-0400 Systolic blood pressure 118 mm[Hg] Don Barrera Work Phone: ST-Paxbtlebzr-Rvbz [address] Work Phone: 05-31-2023 14:45-0400 Body height 165.1 cm Don Barrera MD Work Phone: [facility] 05-31-2023 14:45-0400 Body mass index (BMI) [Ratio] 26.43 kg/m2 Don Barrera MD Work Phone: [facility] 05-31-2023 14:45-0400 Body weight 72.03 kg Don Barrera MD Work Phone: [facility] 05-31-2023 14:45-0400 Diastolic blood pressure 60 mm[Hg] Don Barrera MD Work Phone: [facility] 05-31-2023 14:45-0400 Heart rate 64 /min Don Barrera MD Work Phone: [facility] 05-31-2023 14:45-0400 SaO2% (BldA) [Mass fraction] 95 % Don Barrera MD Work Phone: [facility] 05-31-2023 14:45-0400 Systolic blood pressure 120 mm[Hg] Don Barrera MD Work Phone: 4(340)417-594448 [place] [address] 05-04-2023 08:06-0400 Body height 165.1 cm Don Barrera MD Work Phone: 1(612)710-181848 [place] [address] 05-04-2023 08:06-0400 Body mass index (BMI) [Ratio] 26.24 kg/m2 Don Barrera MD Work Phone: 9(075)277-812048 [place] [address] 05-04-2023 08:06-0400 Body weight 71.53 kg Don Barrera MD Work Phone: 7(702)502-549648 [place] [address] 05-04-2023 08:06-0400 Diastolic blood pressure 60 mm[Hg] Don Barrera MD Work Phone: 9(534)232-945448 [place] [address] 05-04-2023 08:06-0400 Heart rate 61 /min Don Barrera MD Work Phone: 4(953)[phone] [place] [address] 05-04-2023 08:06-0400 SaO2% (BldA) [Mass fraction] 98 % Don Barrera MD Work Phone: [facility] 05-04-2023 08:06-0400 Systolic blood pressure 116 mm[Hg] Don Barrera MD Work Phone: 0(115)697-818748 [place] [address] 02-09-2023 08:08-0400 Diastolic blood pressure 77 mm[Hg] Eladio Kingsley Jr. DPMonty Work Phone: [facility] 02-09-2023 08:08-0400 Heart rate 57 /min Eladio Sancho Jr., DPM Work Phone: [facility] 02-09-2023 08:08-0400 Systolic blood pressure 147 mm[Hg] Eladio Halln Jr., DPM Work Phone: [facility] 02-09-2023 08:05-0400 Body temperature 97.3 [degF] Eladio Sancho Jr., DPM Work Phone: [facility] 11-17-2022 08:03-0500 Body temperature 97 [degF] Eladio Sancho Jr., DPM Work Phone: [facility] 11-17-2022 08:03-0500 Diastolic blood pressure 83 mm[Hg] Eladio Sancho Jr., DPM Work Phone: [facility] 11-17-2022 08:03-0500 Heart rate 65 /min Eladio Acevedolon Jr., DPM Work Phone: [facility] 11-17-2022 08:03-0500 Systolic blood pressure 130 mm[Hg] Eladio Halln Jr., DPM Work Phone: [facility] 10-27-2022 08:41-0500 Body height 165.1 cm Don Barrera Work Phone: [facility] Work Phone: 10-27-2022 08:41-0500 Body mass index (BMI) [Ratio] 26.79 kg/m2 Don Barrera Work Phone: [facility] Work Phone: 10-27-2022 08:41-0500 Body surface area Derived from formula 1.8 m2 Don Barrera Work Phone: [facility] Work Phone: 10-27-2022 08:41-0500 Body weight 73.03 kg Don Barrera Work Phone: [facility] Work Phone: 10-27-2022 08:41-0500 Diastolic blood pressure 66 mm[Hg] Eligioer Cande Sheltond Work Phone: -[facility] Work Phone: 10-27-2022 08:41-0500 Heart rate 59 /min Eligioer Cande Sheltond Work Phone: [facility] Work Phone: 10-27-2022 08:41-0500 SaO2% (BldA) [Mass fraction] 99 % Christailyner Cande Sheltond Work Phone: [facility] Work Phone: 10-27-2022 08:41-0500 Systolic blood pressure 132 mm[Hg] Eligioer Cande Sheltond Work Phone: [facility] Work Phone: 09-23-2022 10:31-0500 Body height 168 cm Don Barrera Other Phone: [facility] 09-23-2022 10:31-0500 Body temperature 98.24 [degF] Don Sheltond Other Phone: [facility] 09-23-2022 10:31-0500 Diastolic blood pressure 85 mm[Hg] Christopher Barrera Other Phone: [facility] 09-23-2022 10:31-0500 Heart rate 80 /min Christopher Barrera Other Phone: [facility] 09-23-2022 10:31-0500 Respiratory rate 16 /min Alokopher Barrera Other Phone: [facility] 09-23-2022 10:31-0500 SaO2% (BldA) [Mass fraction] 96 % Don Sheltond Other Phone: [facility] 09-23-2022 10:31-0500 Systolic blood pressure 153 mm[Hg] Don Barrera Other Phone: [facility] 08-18-2022 07:57-0400 Body temperature 97 [degF] Eladio Sancho Kim., DPM Work Phone: [facility] 08-18-2022 07:57-0400 Diastolic blood pressure 75 mm[Hg] Eladiohailey Kingsley Jr., DPM Work Phone: [facility] 08-18-2022 07:57-0400 Heart rate 53 /min Eladio Sancho Kim., DPM Work Phone: [facility] 08-18-2022 07:57-0400 Systolic blood pressure 131 mm[Hg] Eladiohailey Kingsley Jr., DPM Work Phone: [facility] 06-15-2022 08:23-0400 Body height 165.1 cm Don Barrera Work Phone: GH-Kuzarafdra-Oazc [address] Work Phone: 06-15-2022 08:23-0400 Body mass index (BMI) [Ratio] 27.22 kg/m2 Don Barrera Work Phone: JT-Xqvyoigjop-Vcgn [address] Work Phone: 06-15-2022 08:23-0400 Body surface area Derived from formula 1.82 m2 Don Barrera Work Phone: DQ-Flemcqxqvr-Lcjw [address] Work Phone: 06-15-2022 08:23-0400 Body weight 74.21 kg Don Barrera Work Phone: PN-Myhjmxulvz-Knud [address] Work Phone: 06-15-2022 08:23-0400 Diastolic blood pressure 80 mm[Hg] Don Barrera Work Phone: LF-Qynpbfladx-Dfwd [address] Work Phone: 06-15-2022 08:23-0400 Heart rate 79 /min Don Barrera Work Phone: LJ-Bbfqxxjfxm-Leih [address] Work Phone: 06-15-2022 08:23-0400 SaO2% (BldA) [Mass fraction] 98 % Don Barrera Work Phone: AF-Vwikifgknu-Wnwy [address] Work Phone: 06-15-2022 08:23-0400 Systolic blood pressure 138 mm[Hg] Don Barrera Work Phone: IB-Avjztfwmhj-Rkdd [address] Work Phone: 05-19-2022 08:10-0400 Body temperature 97.3 [degF] Eladio Kingsley Jr., DPM Work Phone: [facility] 05-19-2022 08:10-0400 Diastolic blood pressure 66 mm[Hg] Eladio Kingsley Jr., DPM Work Phone: [facility] 05-19-2022 08:10-0400 Heart rate 70 /min Eladio Kingsley Jr., DPM Work Phone: [facility] 05-19-2022 08:10-0400 Systolic blood pressure 110 mm[Hg] Eladio Kingsley Jr., DPM Work Phone: [facility] 05-17-2022 13:04-0400 Body mass index (BMI) [Ratio] 27.46 kg/m2 Don Barrera Work Phone: NY-Ouixbwmdiy-Lcaw [address] Work Phone: 05-17-2022 13:04-0400 Body surface area Derived from formula 1.82 m2 Don Barrera Work Phone: QD-Xeqsjhhncl-Qjig [address] Work Phone: 05-17-2022 13:04-0400 Body weight 74.84 kg Don Barrera Work Phone: DF-Pfgvrblkpj-Rgcz [address] Work Phone: 05-17-2022 13:04-0400 Diastolic blood pressure 89 mm[Hg] Don Barrera Work Phone: SX-Okdajgewvo-Swtx [address] Work Phone: 05-17-2022 13:04-0400 Heart rate 64 /min Don Barrera Work Phone: TM-Hnsypjfelu-Cswd [address] Work Phone: 05-17-2022 13:04-0400 Systolic blood pressure 137 mm[Hg] Don Barrera Work Phone: ZI-Morjzdqlli-Gprr [address] Work Phone: 04-26-2022 08:24-0400 Body height 165.1 cm Don Barrera Work Phone: [facility] Work Phone: 04-26-2022 08:24-0400 Body mass index (BMI) [Ratio] 27.83 kg/m2 Don Barrera Work Phone: [facility] Work Phone: 04-26-2022 08:24-0400 Body surface area Derived from formula 1.83 m2 Don Barrera Work Phone: [facility] Work Phone: 04-26-2022 08:24-0400 Body weight 75.86 kg Don Barrera Work Phone: [facility] Work Phone: 04-26-2022 08:24-0400 Diastolic blood pressure 70 mm[Hg] Don Barrera Work Phone: [facility] Work Phone: 04-26-2022 08:24-0400 Heart rate 70 /min Don Barrera Work Phone: [facility] Work Phone: 04-26-2022 08:24-0400 SaO2% (BldA) [Mass fraction] 96 % Don Barrera Work Phone: [facility] Work Phone: 04-26-2022 08:24-0400 Systolic blood pressure 140 mm[Hg] Don Barrera Work Phone: [facility] Work Phone: 02-27-2022 11:02-0400 Body height 165.1 cm Don Barrera Work Phone: [facility] Work Phone: 02-27-2022 11:02-0400 Body mass index (BMI) [Ratio] 26.96 kg/m2 Don Barrera Work Phone: [facility] Work Phone: 02-27-2022 11:02-0400 Body surface area Derived from formula 1.81 m2 Don Barrera Work Phone: [facility] Work Phone: 02-27-2022 11:02-0400 Body weight 73.48 kg Don Barrera Work Phone: [facility] Work Phone: 02-27-2022 11:02-0400 Diastolic blood pressure 60 mm[Hg] Don Barrera Work Phone: [facility] Work Phone: 02-27-2022 11:02-0400 Heart rate 64 /min Don Barrera Work Phone: [facility] Work Phone: 02-27-2022 11:02-0400 SaO2% (BldA) [Mass fraction] 97 % Don Barrera Work Phone: -[facility] Work Phone: 02-27-2022 11:02-0400 Systolic blood pressure 110 mm[Hg] Don Barrera Work Phone: [facility] Work Phone: 02-15-2022 09:34-0400 Body temperature 98.1 [degF] Eladio Kingsley Jr. DPM Work Phone: [facility] 02-15-2022 09:34-0400 Diastolic blood pressure 85 mm[Hg] Eladio Kingsley Jr., DPM Work Phone: [facility] 02-15-2022 09:34-0400 Heart rate 65 /min Eladio Kingsley Jr., DPM Work Phone: [facility] 02-15-2022 09:34-0400 Systolic blood pressure 131 mm[Hg] Eladio Kingsley Jr., DPM Work Phone: [facility] [facility] 11-15-2021 11:23-0500 Body mass index (BMI) [...] [degF] Eladio Kingsley Jr., DPM Work Phone: [facility] 11-04-2021 08:03-0500 Diastolic blood pressure 73 mm[Hg] Eladio Kingsley Jr., DPM Work Phone: [facility] 11-04-2021 08:03-0500 Heart rate 95 /min Eladio Kingsley Jr., DPM Work Phone: [facility] 11-04-2021 08:03-0500 Systolic blood pressure 124 mm[Hg] Eladio Kingsley Jr., DPM Work Phone: [facility] 10-26-2021 08:10-0500 Body height 165.1 cm Don Barrera Work Phone: [facility] Work Phone: 10-26-2021 08:10-0500 Body mass index (BMI) [Ratio] 26.86 kg/m2 Don Barrera Work Phone: [facility] Work Phone: 10-26-2021 08:10-0500 Body surface area Derived from formula 1.81 m2 Don Barrera Work Phone: [facility] Work Phone: 10-26-2021 08:10-0500 Body temperature 97.3 [degF] Don Barrera Work Phone: [facility] Work Phone: 10-26-2021 08:10-0500 Body weight 73.23 kg Don Barrera Work Phone: [facility] Work Phone: 10-26-2021 08:10-0500 Diastolic blood pressure 80 mm[Hg] Don Barrera Work Phone: [facility] Work Phone: 10-26-2021 08:10-0500 Heart rate 72 /min Don Barrera Work Phone: [facility] Work Phone: 10-26-2021 08:10-0500 SaO2% (BldA) [Mass fraction] 98 % Don Barrera Work Phone: [facility] Work Phone: 10-26-2021 08:10-0500 Systolic blood pressure 130 mm[Hg] Don Barrera Work Phone: [facility] Work Phone: 08-30-2021 12:06-0500 Body [...] area Derived from formula 1.82 m2 Don Cande Barrera Work Phone: [facility] Work Phone: 08-19-2021 11:26-0400 Body temperature 97.1 [degF] Don Sheltond Work Phone: [facility] Work Phone: 08-19-2021 11:26-0400 Body weight 74.59 kg [place] Sheltond Work Phone: [facility] Work Phone: 08-19-2021 11:26-0400 Diastolic blood pressure 66 mm[Hg] [place] Sheltond Work Phone: [facility] Work Phone: 08-19-2021 11:26-0400 Heart rate 63 /min Don Sheltond Work Phone: [facility] Work Phone: 08-19-2021 11:26-0400 SaO2% (BldA) [Mass fraction] 97 % [place] Cande Barrera Work Phone: [facility] Work Phone: 08-19-2021 11:26-0400 Systolic blood pressure 110 mm[Hg] Don Barrera Work Phone: [facility] Work Phone: 05-20-2021 12:55-0400 Body height 167.6 cm Vijay Viveros MD Work Phone: [facility] 05-20-2021 12:55-0400 Body mass index (BMI) [Ratio] 27.12 kg/m2 Vijay Viveros MD Work Phone: [facility] 05-20-2021 12:55-0400 Body weight 76.2 kg Vijay Viveros MD Work Phone: [facility] 05-18-2021 13:03-0400 Body height 165.1 cm Don Barrera Work Phone: XB-Ibvaoep-Ssqgbfy Work Phone: 05-18-2021 13:03-0400 Body mass index (BMI) [Ratio] 28.12 kg/m2 Don Barrera Work Phone: OP-Bgbszrc-Xcvtqiu Work Phone: 05-18-2021 13:03-0400 Body surface area Derived from formula 1.84 m2 Don Barrera Work Phone: RM-Mqzvgat-Nwixogt Work Phone: 05-18-2021 13:03-0400 Body weight 76.66 kg Don Barrera Work Phone: FB-Lloqymq-Nokziyw Work Phone: 05-18-2021 13:03-0400 Diastolic blood pressure 62 mm[Hg] Don Barrera Work Phone: LH-Nxsylgx-Dtipqzm Work Phone: 05-18-2021 13:03-0400 Heart rate 64 /min Don Barrera Work Phone: QR-Ppdlmxw-Hnnytwg Work Phone: 05-18-2021 13:03-0400 Systolic blood pressure 120 mm[Hg] Don Barrera Work Phone: LV-Qhfoihj-Uussamb Work Phone: 05-13-2021 08:03-0400 Body height 167.6 cm Eladio Kingsley Jr., DPM Work Phone: [facility] 05-13-2021 08:03-0400 Body mass index (BMI) [Ratio] 27.12 kg/m2 Eladio Acevedoboni Kim., DPM Work Phone: [facility] 05-13-2021 08:03-0400 Body temperature 97.7 [degF] Eladio Kingsley Jr., DPM Work Phone: [facility] 05-13-2021 08:03-0400 Body weight 76.2 kg Eladio Hallyesi Kim., DPM Work Phone: [facility] 05-13-2021 08:03-0400 Diastolic blood pressure 64 mm[Hg] Eladio Halln Jr., DPM Work Phone: [facility] 05-13-2021 08:03-0400 Heart rate 86 /min Eladio Hallyesi Kim., DPM Work Phone: [facility] 05-13-2021 08:03-0400 Systolic blood pressure 121 mm[Hg] Eladio Hallyesi Kim., DPM Work Phone: [facility] 05-09-2021 10:04-0400 Body height 167.6 cm Heather Paredes MD Work Phone: [facility] 05-09-2021 10:04-0400 Body mass index (BMI) [Ratio] 27.12 kg/m2 Heather Paredes MD Work Phone: [facility] 05-09-2021 10:04-0400 Body weight 76.2 kg Heather Paredes MD Work Phone: [facility] 05-09-2021 10:04-0400 Diastolic blood pressure 83 mm[Hg] Heather Paredes MD Work Phone: [facility] 05-09-2021 10:04-0400 Heart rate 53 /min Heather Paredes MD Work Phone: [facility] 05-09-2021 10:04-0400 SaO2% (BldA) [Mass fraction] 94 % Heather Paredes MD Work Phone: [facility] 05-09-2021 10:04-0400 Systolic blood pressure 143 mm[Hg] Heather Paredes MD Work Phone: [facility] 04-20-2021 09:50-0400 Body height 165.1 cm Don Barrera Work Phone: [facility] Work Phone: 04-20-2021 09:50-0400 Body mass index (BMI) [Ratio] 28.04 kg/m2 Don Barrera Work Phone: [facility] Work Phone: 04-20-2021 09:50-0400 Body surface area Derived from formula 1.84 m2 Don Barrera Work Phone: [facility] Work Phone: 04-20-2021 09:50-0400 Body temperature 97.3 [degF] Don Barrera Work Phone: [facility] Work Phone: 04-20-2021 09:50-0400 Body weight 76.43 kg Don Barrera Work Phone: [facility] Work Phone: 04-20-2021 09:50-0400 Diastolic blood pressure 64 mm[Hg] Don Barrera Work Phone: [facility] Work Phone: 04-20-2021 09:50-0400 Heart rate 57 /min Don Barrera Work Phone: [facility] Work Phone: 04-20-2021 09:50-0400 SaO2% (BldA) [Mass fraction] 96 % Don Barrera Work Phone: [facility] Work Phone: 04-20-2021 09:50-0400 Systolic blood pressure 120 mm[Hg] Don Barrera Work Phone: [facility] Work Phone: 02-11-2021 21:23-0400 Body height 167.6 cm Eladio Sancho Kim., DPM Work Phone: [facility] 02-11-2021 21:23-0400 Body mass index (BMI) [Ratio] 27.12 kg/m2 Eladiohailey Kingsley Jr., DPM Work Phone: [facility] 02-11-2021 21:23-0400 Body weight 76.2 kg Eladio Sancho Kim., DPM Work Phone: [facility] 11-12-2020 21:23-0500 Diastolic blood pressure 66 mm[Hg] Eladiohailey Kingsley Jr., DPM Work Phone: [facility] 11-12-2020 21:23-0500 Systolic blood pressure 117 mm[Hg] Eladio Sancho Kim., DPM Work Phone: [facility] 04-07-2020 10:11-0400 BMI (Body Mass Index) 24.3 kg/m2 Don Barrera [facility] Work Phone: 04-07-2020 10:11-0400 Body Temperature 97.8 [degF] Don Barrera [facility] Work Phone: 04-07-2020 10:11-0400 Body weight 66.23 kg Don Barrera [facility] Work Phone: 04-07-2020 10:11-0400 BP Diastolic 64 mm[Hg] Don Barrera [facility] Work Phone: 04-07-2020 10:11-0400 BP Systolic 108 mm[Hg] Don Barrera -[facility] Work Phone: 04-07-2020 10:11-0400 BSA (Body Surface Area) 1.73 m2 Don Sheltond -[facility] Work Phone: 04-07-2020 10:11-0400 Height 165.1 cm Don Sheltond -[facility] Work Phone: 04-07-2020 10:11-0400 Pulse (Heart Rate) 72 /min [place] Barrera -[facility] Work Phone: 04-07-2020 10:05-0400 BMI (Body Mass Index) 27.62 kg/m2 Don Sheltond -[facility] Work Phone: 04-07-2020 10:05-0400 Body Temperature 97.3 [degF] Don Sheltond -[facility] Work Phone: 04-07-2020 10:05-0400 Body weight 75.3 kg Don Sheltond [facility] Work Phone: 04-07-2020 10:05-0400 BP Diastolic 64 mm[Hg] Don Sheltond -[facility] Work Phone: Comment on above: Location: [facility]; 04-07-2020 10:05-0400 BP Systolic 108 mm[Hg] Don Sheltond -[facility] Work Phone: Comment on above: Location: [facility]; 04-07-2020 10:05-0400 BSA (Body Surface Area) 1.83 m2 Eligiodequan Sheltond -[facility] Work Phone: 04-07-2020 10:05-0400 Height 165.1 cm Dno Barrera -[facility] Work Phone: 04-07-2020 10:05-0400 Pulse (Heart Rate) 72 /min Don Barrera [facility] Work Phone: 03-08-2020 15:38-0400 Diastolic blood pressure 72 ml [facility] 03-08-2020 15:38-0400 Systolic blood pressure 23 ml Heather Paredes [facility] 03-08-2020 09:51-0400 BMI (Body Mass Index) 26.24 kg/m2 Heather Paredes [facility] 03-08-2020 09:51-0400 Body weight 76 kg Heather Paredes [facility] 03-08-2020 09:51-0400 BP Diastolic 73 mm[Hg] Heather Paredes [facility] 03-08-2020 09:51-0400 BP Systolic 138 mm[Hg] Heather Paredes [facility] 03-08-2020 09:51-0400 Height 170.2 cm Heather Paredes [facility] 03-08-2020 09:51-0400 Pulse (Heart Rate) 66 /min Heather Paredes [facility] 11-12-2019 16:51-0500 BMI (Body Mass Index) 26.19 kg/m2 Robb Colindres II KL-Efztmpq-Xwtnfpz Work Phone: 11-12-2019 16:51-0500 Body weight 73.03 kg Robb Colindres II IC-Zqzxqlv-Iikls nd Work Phone: 11-12-2019 16:51-0500 BP Diastolic 68 mm[Hg] Robb Colindres II VR-Xkoavqr-Jtmkq nd Work Phone: 11-12-2019 16:51-0500 BP Systolic 122 mm[Hg] Robb Colindres II XA-Xarfmyu-Ytkba nd Work Phone: 11-12-2019 16:51-0500 BSA (Body Surface Area) 1.82 m2 Robb Colindres II HB-Yfgiecp-Vwqtehg Work Phone: 11-12-2019 16:51-0500 Height 167 cm Robb Colindres II WF-Eaqljrq-Qrhqj nd Work Phone: 11-12-2019 16:51-0500 Pulse (Heart Rate) 64 /min Robb Colindres II XY-Tibumgu-Qn hland Work Phone: 10-08-2019 13:03-0500 BMI (Body Mass Index) 27.85 kg/m2 Robb Colindres II YD-Bwaerqr-Tsgunfz Work Phone: 10-08-2019 13:03-0500 Body weight 75.92 kg Robb Colindres II JM-Abvajki-Zxzdx nd Work Phone: 10-08-2019 13:03-0500 BP Diastolic 81 mm[Hg] Robb Colindres II OM-Aujzwnk-Mpcmt nd Work Phone: 10-08-2019 13:03-0500 BP Systolic 146 mm[Hg] Robb Colindres II RI-Rtijsmz-Udhda nd Work Phone: 10-08-2019 13:03-0500 BSA (Body Surface Area) 1.83 m2 Robb Colindres II HQ-Auaihnh-Icawgav Work Phone: 10-08-2019 13:03-0500 Height 165.1 cm Robb Colindres II QL-Hwqgapw-Icksp nd Work Phone: 10-08-2019 13:03-0500 Pulse (Heart Rate) 69 /min Robb Colindres II UT-Yvmtfbp-Ae hland Work Phone: 10-03-2019 10:09-0500 BMI (Body Mass Index) 27.33 kg/m2 Don Sheltond -[facility] Work Phone: 10-03-2019 10:09-0500 Body weight 74.5 kg Don Sheltond -[facility] Work Phone: 10-03-2019 10:09-0500 BP Diastolic 64 mm[Hg] Don Sheltond -[facility] Work Phone: Comment on above: Location: [facility]; 10-03-2019 10:09-0500 BP Systolic 122 mm[Hg] Don Sheltond -[facility] Work Phone: Comment on above: Location: [facility]; 10-03-2019 10:09-0500 BSA (Body Surface Area) 1.82 m2 Don Sheltond -[facility] Work Phone: 10-03-2019 10:09-0500 Height 165.1 cm Don Barrera -[facility] Work Phone: 10-03-2019 10:09-0500 Pulse (Heart Rate) 64 /min Don Barrera -[facility] Work Phone: 10-03-2019 10:09-0500 Pulse Oximetry 97 % Don Barrera -[facility] Work Phone: 09-25-2019 13:50-0500 Body Temperature 98.6 [degF] [facility] 09-25-2019 13:50-0500 BP Diastolic 60 mm[Hg] [facility] 09-25-2019 13:50-0500 BP Systolic 110 mm[Hg] [facility] 09-25-2019 13:50-0500 Pulse (Heart Rate) 64 /min [facility] 09-25-2019 13:50-0500 Pulse Oximetry 97 % [facility] 09-25-2019 11:52-0500 Body Temperature 98.8 [degF] [facility] 09-25-2019 11:52-0500 BP Diastolic 74 mm[Hg] [facility] 09-25-2019 11:52-0500 BP Systolic 128 mm[Hg] [facility] 09-25-2019 11:52-0500 Pulse (Heart Rate) 52 /min [facility] 09-25-2019 11:52-0500 Pulse Oximetry 99 % [facility] 09-23-2019 12:45-0500 BMI (Body Mass Index) 26.16 kg/m2 [facility] 12:45-0500 Body weight 75.75 [facility] 09-23-2019 12:45-0500 Height 170.2 cm Vijay Viveros [facility] 09-22-2019 11:28-0500 Body Temperature 97.9 [degF] [facility] 09-22-2019 11:28-0500 BP Diastolic 74 mm[Hg] [facility] 09-22-2019 11:28-0500 BP Systolic 120 mm[Hg] [facility] 09-22-2019 11:28-0500 Pulse (Heart Rate) 77 /min [facility] 09-22-2019 11:28-0500 Pulse Oximetry 98 % [facility] 09-22-2019 10:34-0500 Body Temperature 98.2 [degF] Jenifer [facility] 09-22-2019 10:34-0500 BP Diastolic 70 mm[Hg] [facility] 09-22-2019 10:34-0500 BP Systolic 120 mm[Hg] [facility] 09-22-2019 10:34-0500 Pulse (Heart Rate) 64 /min [facility] 09-22-2019 10:34-0500 Pulse Oximetry 97 % [facility] 09-22-2019 10:34-0500 Respiratory Rate 18 /min [facility] 09-19-2019 10:07-0500 Body Temperature 97.5 [degF] [facility] 09-19-2019 10:07-0500 BP Diastolic 58 mm[Hg] [facility] 09-19-2019 10:07-0500 BP Systolic 98 mm[Hg] [facility] 09-19-2019 10:07-0500 Pulse (Heart Rate) 68 /min [facility] 09-19-2019 10:07-0500 Pulse Oximetry 95 % [facility] 09-19-2019 10:07-0500 Respiratory Rate 16 /min [facility] 09-17-2019 11:35-0500 BMI (Body Mass Index) 27.72 kg/m2 [id number] [facility] PO-Qrfjsnq-Dtwdepo Work Phone: 09-17-2019 11:35-0500 Body weight 80.29 kg [id number] [facility] BL-Dkkroih-Mrlqggx Work Phone: 09-17-2019 11:35-0500 BP Diastolic 78 mm[Hg] [id number] [facility] EU-Ybrbrrb-Uwljzzq Work Phone: 09-17-2019 11:35-0500 BP Systolic 124 mm[Hg] [id number] [facility] JG-Phczebc-Fkncnjl Work Phone: 09-17-2019 11:35-0500 BSA (Body Surface Area) 1.[address] UROLOGY NURSE AD-Qecqcic-Bgbxyht Work Phone: 09-17-2019 11:35-0500 Height 170.18 cm [id number] [facility] WI-Axjurfr-Xqsiopz Work Phone: 09-17-2019 11:25-0500 Body Temperature 97.9 [degF] [facility] 09-17-2019 11:25-0500 BP Diastolic 65 mm[Hg] [facility] 09-17-2019 11:25-0500 BP Systolic 110 mm[Hg] [facility] 09-17-2019 11:25-0500 Pulse (Heart Rate) 65 /min [facility] 09-17-2019 11:25-0500 Pulse Oximetry 98 % [facility] 09-15-2019 10:53-0500 Body Temperature 98.01 [degF] [facility] 09-15-2019 10:53-0500 BP Diastolic 72 mm[Hg] [facility] 09-15-2019 10:53-0500 BP Systolic 124 mm[Hg] [facility] 09-15-2019 10:53-0500 Pulse (Heart Rate) 72 /min [facility] 09-15-2019 10:53-0500 Pulse Oximetry 72 % [facility] 09-15-2019 10:53-0500 Respiratory Rate 16 /min [facility] 09-15-2019 10:28-0500 Body Temperature 98.01 [degF] [facility] 09-15-2019 10:28-0500 BP Diastolic 72 mm[Hg] [facility] 09-15-2019 10:28-0500 BP Systolic 124 mm[Hg] [facility] 09-15-2019 10:28-0500 Pulse (Heart Rate) 68 /min [facility] 09-15-2019 10:28-0500 Pulse Oximetry 97 % [facility] 09-12-2019 12:27-0500 Body Temperature 97.9 [degF] Chary Mayorga [facility] 09-12-2019 12:27-0500 BP Diastolic 70 mm[Hg] Chary Mayorga [facility] 09-12-2019 12:27-0500 BP Systolic 110 mm[Hg] Chary Mayorga [facility] 09-12-2019 12:27-0500 Pulse (Heart Rate) 77 /min Chary Mayorga [facility] 09-12-2019 12:27-0500 Pulse Oximetry 95 % Chary Mayorga [facility] 09-12-2019 10:17-0500 Body Temperature 97.3 [degF] Milagro Leal [facility] 09-12-2019 10:17-0500 BP Diastolic 60 mm[Hg] Milagro Leal [facility] 09-12-2019 10:17-0500 BP Systolic 112 mm[Hg] Milagro Leal [facility] 09-12-2019 10:17-0500 Pulse (Heart Rate) 68 /min Milagro Leal [facility] 09-12-2019 10:17-0500 Pulse Oximetry 93 % Milagro Leal [facility] 09-12-2019 10:17-0500 Respiratory Rate 18 /min Milagro Leal [facility] 09-11-2019 14:58-0500 Respiratory Rate 16 /min Vijay Viveros [facility] 09-11-2019 13:24-0500 Body Temperature 99.1 [degF] Vijay Viveros [facility] 09-11-2019 13:24-0500 BP Diastolic 78 mm[Hg] Vijay Viveros [facility] 09-11-2019 13:24-0500 BP Systolic 135 mm[Hg] Vijay Viveros [facility] 09-11-2019 13:24-0500 Pulse (Heart Rate) 71 /min Vijay Viveros [facility] 09-11-2019 13:24-0500 Pulse Oximetry 97 % Vijay Viveros [facility] 09-10-2019 08:38-0500 BMI (Body Mass Index) 26.24 kg/m2 Vijay Viveros [facility] 09-10-2019 08:38-0500 Body weight 76 kg Vijay Viveros [facility] 09-10-2019 08:38-0500 Height 170.2 cm Vijay Viveros [facility] 05-19-2019 10:18-0400 BMI (Body Mass Index) 26.24 kg/m2 Heather Paredes [facility] 05-19-2019 10:18-0400 Body weight 78.29 kg Heather Paredes [facility] 05-19-2019 10:18-0400 BP Diastolic 73 mm[Hg] Heather Paredes [facility] 05-19-2019 10:18-0400 BP Systolic 139 mm[Hg] Heather [facility] 05-19-2019 10:18-0400 Height 172.7 cm Heather [facility] 05-19-2019 10:18-0400 Pulse (Heart Rate) 60 /min Heather [facility] 05-19-2019 10:18-0400 Pulse Oximetry 96 % Heather [facility] 04-28-2019 09:29-0400 BMI (Body Mass Index) 26.15 kg/m2 Vijay Viveros [facility] 04-28-2019 09:29-0400 Body weight 78.02 kg Vijay iVveros [facility] 04-28-2019 09:29-0400 Height 172.7 cm Vijay Viveros [facility] 04-22-2018 12:03-0400 BMI (Body Mass Index) 26.23 kg/m2 Heather [facility] 04-22-2018 12:03-0400 BP Diastolic 82 mm[Hg] [facility] 04-22-2018 12:03-0400 BP Systolic 136 mm[Hg] Heather [facility] 04-22-2018 12:03-0400 Height 172.7 cm [facility] 04-22-2018 12:03-0400 Pulse (Heart Rate) 61 /min [facility] 04-22-2018 12:03-0400 Pulse Oximetry 93 % Heather [facility] 04-22-2018 12:03-0400 Weight 78.25 kg [facility] Encounters Encounter Date Encounter Type Care Provider Facility Start: 08-04-2025 End: 08-09-2025 Evaluation and management of inpatient Kelsey Patel MD Work Phone: [facility] 8 Comment on above: Head injury, initial encounter (Primary Dx); Subdural hemorrhage (Multi) Start: 08-04-2025 End: 08-04-2025 Emergency department patient visit Santiago Menendez DO Work Phone: [facility] Start: 07-31-2025 End: 07-31-2025 Assay of hemosiderin, quant Don Barrera MD Work Phone: [facility] Work Phone: Start: 07-31-2025 End: 07-31-2025 Patient encounter procedure Don Barrera MD Work Phone: [facility] Comment on above: Routine general [...] unspecified type Start: 07-31-2025 End: 07-31-2025 ambulatory [facility] Start: 07-31-2025 End: 07-31-2025 Encounter for general adult medical examination without abnormal findings [facility] Start: 07-17-2025 End: 07-17-2025 Office outpatient visit 25 minutes Don Barrera MD Work Phone: [facility] Comment on above: Primary hypertension (Primary Dx); 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; Closed fracture of roof of orbit, unspecified laterality, sequela; Closed fracture of sacrum, unspecified portion of sacrum, sequela; Subdural hematoma (Multi); Fall, sequela; Benign prostatic hyperplasia with lower urinary tract symptoms, symptom details unspecified Start: 07-17-2025 End: 07-17-2025 ambulatory [facility] Start: 07-14-2025 End: 07-14-[address] Devan Barrera MD Work Phone: -Cat Scan [facility] Start: 07-14-2025 End: 07-14-[address] Jesus Alberto Wiggins MD -Cat Scan [facility] Work Phone: Start: 07-14-2025 End: 07-14-2025 ambulatory Jesus Alberto Wiggins Facility:[facility] Start: 06-17-2025 ambulatory Stan Ferrara Facility :[facility] [place] Start: 06-17-2025 End: 06-17-2025 Admission to same day surgery center Stan Ferrara DO -Endoscopy Work Phone: Start: 06-17-2025 End: 06-17-[address] Dvean Barrera MD Work Phone: -Endoscopy Start: 06-17-2025 Non-patient / Non-visit Stansal Monte nd DO -[facility] Start: 06-15-2025 Non-patient / Non-visit Stan Monte nd DO -[facility] Start: 05-26-2025 End: 05-26-[address] Devan Barrera MD Work Phone: -Cat Scan [facility] Start: 05-26-2025 End: 05-26-[address] Jesus Alberto Wiggins MD -Cat Scan [facility] Work Phone: Start: 05-26-2025 Non-patient / Non-visit Stan Monte nd DO -[facility] Start: 05-26-2025 End: 05-26-2025 Admission to same day surgery center [facility] -Endoscopy Work Phone: Start: 05-26-2025 End: 05-26-[address] Devan Barrera MD Work Phone: -Endoscopy Start: 05-26-2025 End: 05-26-2025 ambulatory Devan Barrera Facility:[facility] Start: 05-21-2025 End: 05-21-[address] Devan Barrera MD Work Phone: -Cat Scan [facility] Start: 05-21-2025 End: 05-21-[address] Jesus Alberto Wiggins MD -Cat Scan [facility] Work Phone: Start: 05-20-2025 End: 05-21-2025 ambulatory Jesus Alberto Wiggins Facility:[facility] Start: 05-20-2025 End: 07-16-2025 Evaluation and management of inpatient Dr. Jesus Alberto Wiggins MD -Transitional Care Unit Start: 05-18-2025 Evaluation and manag ement of inpatient LINCOLNYesi GRADY [facility] Start: 05-11-2025 End: 05-11-2025 Emergency department patient visit [facility] Start: 05-10-2025 End: 05-11-2025 Evaluation and management of inpatient SANTIAGO MENENDEZ [facility] Start: 05-10-2025 End: 05-20-2025 Evaluation and management of inpatient Carri Greer MD Work Phone: [facility] Chalino Meyers 6 Comment on above: Fall, initial encoun ter (Primary Dx); Open fracture of roof of right orbit, initial encounter (Multi); Closed bilateral fracture of pubic rami, initial encounter (Multi); SAH (subarachnoid hemorrhage) (Multi); Syncope, unspecified syncope type; Urinary retention; Pseudophakia of both eyes Start: 05-10-2025 End: 05-10-2025 Emergency department patient visit Santiago Menendez DO Work Phone: [facility] Emergency Medicine Comment on above: Closed fracture of r ight orbit, initial encounter (Multi) (Primary Dx); Intracranial hemorrhage (Multi); Multiple closed fractures of pelvis with disruption of pelvic ring, initial encounter (Multi) Start: 05-08-2025 End: 05-08-2025 Subsequent hospital visit by physician Wilmar X-Ray 1 [facility] Comment on above: Neck pain Start: 05-08-2025 End: 05-08-2025 ambulatory [facility] Start: 05-07-2025 End: 05-07-2025 Office outpatient visit 15 minutes Don Barrera MD Work Phone: [facility] Comment on above: Neck pain (Primary D x) Start: 05-07-2025 End: 05-07-2025 ambulatory [facility] Start: 04-10-2025 End: 04-10-2025 Subsequent hospital visit by physician Wilmar X-Ray 1 [facility] Comment on above: Rib pain on left chelo e Start: 04-10-2025 End: 04-10-2025 ambulatory LINCOLN E CHRISTINE [facility] Start: 04-10-2025 End: 04-10-2025 ambulatory [facility] Start: 04-10-2025 End: 04-10-2025 Patient encounter procedure Eladio Kingsley DPM Work Phone: [facility] Comment on above: Onychomycosis (Prima ry Dx); Peripheral vascular disease, unspecified Rib pain on left chelo e (Primary Dx) Start: 04-10-2025 End: 04-10-2025 ambulatory [facility] Amb[facility] Start: 03-10-2025 End: 03-10-2025 ambulatory DELTA BANGURA Facility:[facility] Start: 01-09-2025 End: 01-09-2025 Patient encounter procedure Eladio ASHBYM Work Phone: [facility] Comment on above: Onychomycosis (Prima ry Dx); Peripheral vascular disease, unspecified Start: 01-09-2025 End: 01-09-2025 ambulatory [facility] Start: 11-20-2024 End: 11-20-2024 Office outpatient visit 25 minutes Don Barrera MD Work Phone: [facility] Comment on above: Primary hypertension (Primary Dx); Mixed hyperlipidemia; 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; Benign prostatic 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 lower urinary tract symptoms; Osteoarthritis of spine with radiculopathy, lumbosacral region; MARIANGEL (generalized anxiety disorder); Anemia, unspecified type; Abdominal aneurysm (CMS-HCC); Peripheral arterial occlusive disease (CMS-HCC); Inflammatory polyarthropathy (Multi); Screening for prostate cancer Start: 11-20-2024 End: 11-20-2024 ambulatory [facility] Start: 11-10-2024 End: 11-10-2024 ambulatory [facility] Start: 10-01-2024 End: 10-01-2024 Patient encounter procedure Eladio Kingsley DPM Work Phone: [facility] Comment on above: Onychomycosis (Prima ry Dx); Peripheral vascular disease, unspecified (HCC) Start: 10-01-2024 End: 10-01-2024 ambulatory [facility] Start: 09-02-2024 End: 09-02-2024 Subsequent hospital visit by physician Wilmar Avilez [facility] Comment on above: Vertigo; Palpitations Start: 09-02-2024 End: 09-02-2024 ambulatory [facility] Start: 09-01-2024 End: 09-01-2024 Office outpatient visit 25 minutes Don Barrera MD Work Phone: [facility] Comment on above: Vertigo (Primary Dx) ; Hypertension, unspecified type; MARIANGEL (generalized anxiety disorder); 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; Hyperlipidemia, unspecified hyperlipidemia type; Migraine with visual aura; Palpitations Start: 09-01-2024 End: 09-01-2024 ambulatory [facility] Start: 08-14-2024 End: 08-14-2024 ambulatory [facility] Start: 07-31-2024 End: 07-31-2024 Subsequent hospital visit by physician Wilmar Landry 1 [facility] Comment on above: Athscl heart disease of [place] coronary artery w/o ang pctrs; TIA (transient ischemic attack); Benign hypertensive heart disease without congestive heart failure; Personal history of transient ischemic attack (TIA), and cerebral infarction without residual deficits Start: 07-29-2024 End: 07-29-2024 Subsequent hospital visit by physician Wilmar Luz [facility] Comment on above: Radiculopathy, lumba r region Start: 07-03-2024 End: 07-03-2024 Office outpatient visit 25 minutes Otoniel Salcedo MD Work Phone: [facility] Office [facility] Comment on above: Athscl heart disease of [place] coronary artery w/o ang pctrs (Primary Dx); TIA (transient ischemic attack); Benign hypertensive heart disease without congestive heart failure Start: 06-17-2024 End: 06-17-2024 Subsequent hospital visit by physician Wilmar Walter 2 [facility] Comment on above: Abdominal aneurysm ( CMS-HCC); 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 [facility] Start: 03-27-2024 End: 03-27-2024 Subsequent hospital visit by physician Wilmar X-Ray Fluoro 1 [facility] Comment on above: Pain in right should [...] 02-29-2024 End: 02-29-2024 Patient encounter procedure Eladio ASHBYM Work Phone: [facility] Comment on above: Onychomycosis (Prima ry Dx); PAD (peripheral artery disease) ([facility]) Start: 02-12-2024 End: 02-12-2024 Office outpatient new 60 minutes Don Barrera MD Work Phone: [facility] Comment on above: Vestibular migraine (Primary Dx) Start: 12-07-2023 End: 12-07-2023 Emergency department patient visit Celso Cabezas DO Work Phone: [facility] Comment on above: Dizziness (Primary D x) Start: 11-30-2023 End: 11-30-2023 Patient encounter procedure Eladio Kingsley DPM Work Phone: [facility] Comment on above: Onychomycosis (Prima ry Dx); PAD (peripheral artery disease) ([facility]) Start: 11-16-2023 End: 11-16-2023 Subsequent hospital visit by physician Wilmar Tran [employer] [facility] Comment on above: Arrived Start: 11-15-2023 End: 11-15-2023 Emergency department patient visit Celso Cabezas DO Work Phone: [facility] Comment on above: Dizziness (Primary D x); Generalized weakness Start: 11-15-2023 End: 11-15-2023 Office outpatient visit 15 minutes Daysi Arenas DO Work Phone: [facility] Comment on above: 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 esophag itis (Primary Dx); Hiatal hernia Start: 11-12-2023 End: 11-12-2023 Subsequent hospital visit by physician Wilmar Tran [employer] [facility] Comment on above: Arrived Start: 11-11-2023 End: 11-11-2023 Emergency department patient visit Sai Myers MD Work Phone: [facility] Start: 11-06-2023 End: 11-06-2023 Subsequent hospital visit by physician Wilmar X-Ray Fluoro 1 [facility] Comment on above: 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 esophag itis; Hiatal hernia Start: 11-05-2023 End: 11-05-2023 Office outpatient visit 25 minutes Don Barrera MD Work Phone: [facility] Comment on above: Primary hypertension (Primary Dx); Screening for prostate cancer; Mixed hyperlipidemia; 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; Benign prostatic 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 lower urinary tract symptoms; Osteoarthritis of spine with radiculopathy, lumbosacral region; MARIANGEL (generalized anxiety disorder); Vertigo; Inflammatory polyarthropathy (CMS/HCC); Peripheral arterial occlusive disease (CMS/HCC); Abdominal aneurysm (CMS/HCC) Start: 11-01-2023 End: 11-01-2023 Office outpatient new 45 minutes Daysi Arenas DO Work Phone: [facility] Comment on above: Hiatal hernia (Prima ry Dx); 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 Start: 10-31-2023 End: 10-31-2023 Office outpatient visit 15 minutes Eladio Kingsley DPM Work Phone: [facility] Comment on above: Ingrown nail (Primar y Dx); Peripheral vascular disease, unspecified (HCC) Start: 10-24-2023 End: 10-24-2023 Office outpatient visit 15 minutes Elaido Acevedolon DPM Work Phone: [facility] Comment on above: Ingrown nail (Primar y Dx) Start: 10-12-2023 End: 10-12-2023 Patient encounter procedure Eladio Acevedolon DPM Work Phone: [facility] Comment on above: Ingrown nail (Primar y Dx) Start: 10-06-2023 End: 10-06-2023 Patient encounter procedure Clark Lese PA-C Work Phone: [facility] Comment on above: Urinary frequency (P rimary Dx); Dysuria Start: 09-28-2023 End: 09-28-2023 Office outpatient visit 15 minutes Don Barrera MD Work Phone: [facility] Comment on above: 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 esophag itis (Primary Dx) Start: 09-17-2023 End: 09-17-2023 Office outpatient visit 25 minutes Robb Colindres MD Work Phone: [facility] Comment on above: Benign prostatic hyp erplasia [...] patient visit Sai Myers MD Work Phone: [facility] Comment on above: Dizziness (Primary D x); Vertigo Start: 06-21-2023 Office outpatient vi sit 25 minutes Don Barrera Work Phone: [facility] [address] Work Phone: Start: 05-31-2023 End: 05-31-2023 Office outpatient visit 15 minutes Don Barrera MD Work Phone: [facility] Comment on above: Chronic right should er pain (Primary Dx) Start: 05-10-[address] Devan Barrera Facility:[id number] Start: 05-04-2023 End: 05-04-2023 Assay of hemosiderin, quant Don Barrera MD Work Phone: [facility] Work Phone: Start: 05-04-2023 End: 05-04-2023 Patient encounter procedure Don Barrera MD Work Phone: [facility] Comment on above: Routine general medi randy [...] encounter procedure Eladio Kingsley DPM Work Phone: [facility] Comment on above: Onychomycosis (Prima ry Dx); Peripheral vascular disease, unspecified (HCC) Start: 11-17-2022 End: 11-17-2022 Patient encounter procedure Eladio Dillon DPM Work Phone: [facility] Comment on above: Onychomycosis (Prima ry Dx); Peripheral vascular disease, unspecified (HCC) Start: 10-27-2022 Office outpatient vi sit 25 minutes Don Barrera Work Phone: [facility] Work Phone: Start: 10-24-2022 Chart Update Don Barrera Work Phone: [facility] Work Phone: Start: 09-23-2022 ambulatory Ms. Heike Smith [facility] Facility:[id number] Start: 09-23-2022 End: 09-23-2022 Emergency department patient visit Heike Adams [facility] Start: 09-18-2022 AUDIT Don Barrera Work Phone: [facility] Work Phone: Start: 09-04-2022 AUDIT Don Barrera Work Phone: [facility] Work Phone: Start: 08-18-2022 End: 08-18-2022 Patient encounter procedure Eladio Kingsley DPM Work Phone: [facility] Comment on above: Onychomycosis (Prima ry Dx); Peripheral vascular disease, unspecified (HCC) Start: 06-15-2022 Office outpatient ne w 45 minutes Don Barrera Work Phone: [id number] Work Phone: Start: 05-19-2022 End: 05-19-2022 Patient encounter procedure Eladio Kingsley DPM Work Phone: [facility] Comment on above: OM (onychomycosis) ( Primary Dx); Peripheral vascular disease, unspecified (HCC) Start: 04-26-2022 Patient encounter procedure Don Barrera Work Phone: [facility] Work Phone: Start: 04-21-2022 Chart Update Don Barrera Work Phone: [facility] Work Phone: Start: 02-27-2022 Office outpatient vi sit 15 minutes Don Barrera Work Phone: [facility] Work Phone: Start: 02-16-2022 Refill Heather arredondo MD Work Phone: [facility] Comment on above: Medication Refill Start: 02-15-2022 End: 02-15-2022 Patient encounter procedure Eladio Kingsley DPM Work Phone: [facility] Comment on above: OM (onychomycosis) ( Primary Dx); PAD (peripheral artery disease) ([facility]) Start: 12-12-2021 AUDIT Don Barrera Work Phone: -[facility] Work Phone: Start: 11-22-2021 Chart Update Don Barrera Work Phone: [facility] Work Phone: Start: 11-15-2021 Patient encounter procedure Don Barrera Work Phone: [facility] Work Phone: Start: 11-04-2021 AUDIT Don Barrera Work Phone: [facility] Work Phone: Start: 11-04-2021 End: 11-04-2021 Patient encounter procedure Eladio Kingsley DPM Work Phone: [facility] Comment on above: Onychomycosis (Prima ry Dx); Peripheral vascular disease, unspecified (HCC) Start: 10-26-2021 Office outpatient vi sit 25 minutes oDn Barrera Work Phone: [facility] Work Phone: Start: 09-20-2021 AUDIT Don Barrera Work Phone: [facility] Work Phone: Start: 08-30-2021 Patient encounter procedure Don Barrera Work Phone: [facility] Work Phone: Start: 07-01-2021 End: 07-01-2021 Office outpatient visit 10 minutes Vijay Viveros MD Work Phone: [facility] Comment on above: Status post left hip replacement (Primary Dx) Start: 06-23-2021 PTRECHADUL, Provider : Dioni Elmore, Status: Pen, Time: 1:15 PM Don Barrera Work Phone: [facility] [place] Work Phone: Start: 06-21-2021 Patient encounter procedure Don Barrera Work Phone: [facility] [place] Work Phone: Start: 06-16-2021 Patient encounter procedure Don Barrera Work Phone: [facility] [place] Work Phone: Start: 06-10-2021 Patient encounter procedure Don Barrera Work Phone: [facility] [place] Work Phone: Start: 06-07-2021 Patient encounter procedure Don Barrera Work Phone: [facility] Work Phone: Start: 05-25-2021 Patient encounter procedure Don Barrera Work Phone: [facility] [place] Work Phone: Start: 05-20-2021 End: 05-20-2021 Office outpatient visit 10 minutes Vijay Viveros MD Work Phone: [facility] Comment on above: Status post left hip replacement (Primary Dx) Start: 05-18-2021 Office outpatient vi sit 25 minutes Alokphilly Cande Barrera Work Phone: [facility] Work Phone: Start: 05-13-2021 End: 05-13-2021 Patient encounter procedure Eladio Kingsley DPM Work Phone: [facility] Comment on above: Onychomycosis (Prima ry Dx); Peripheral vascular disease, unspecified (HCC) Start: 05-12-2021 Chart Update Alokphilly Barrera Work Phone: [facility] Work Phone: Start: 05-11-2021 AUDIT Dno Barrera Work Phone: [facility] Work Phone: Start: 05-09-2021 End: 05-09-2021 Orders Only Deb Menendez RN [facility] Comment on above: 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 Dx) Start: 05-09-2021 End: 05-09-2021 Office outpatient visit 25 minutes Heather Paredes MD Work Phone: [facility] Comment on above: Coronary artery dise ase involving [place] coronary artery of [place] heart without angina pectoris; Mixed hyperlipidemia; Bradycardia Start: 05-03-2021 End: 05-03-2021 Chart abstracting Eladio Kingsley DPM Work Phone: [facility] Comment on above: Callus of foot; OM (onychomycosis); PAD (peripheral artery disease) ([facility]) Start: 04-20-2021 Patient encounter procedure Don Barrera Work Phone: [facility] Work Phone: Start: 01-11-2021 Patient encounter procedure Don Barrera MD ZL-Zssvjyn-Tdnfkbl Work Phone: Start: 01-10-2021 Patient encounter procedure Don Barrera MD LR-Vcpblah-Xksrdjh Work Phone: Start: 11-24-2020 Patient encounter procedure Don Barrera MD LV-Djnyhjz-Hxatndf Work Phone: Start: 11-05-2020 End: 11-05-2020 Orders Only Desire Chandra Stivendirk Work Phone: [facility] Start: 10-12-2020 End: 10-12-2020 Office outpatient visit 10 minutes Santiago Bates Work Phone: [facility] Comment on above: Status post reverse arthroplasty of left shoulder (Primary Dx) Start: 10-11-2020 Patient encounter procedure Don Barrera MD VT-Gmyqphq-Eswtnhg Work Phone: Start: 08-20-2020 End: 08-20-2020 Office outpatient visit 10 minutes Vijay Viveros Work Phone: [facility] Comment on above: Status post left hip replacement (Primary Dx); Lumbar and sacral arthritis Start: 07-13-2020 End: 07-13-2020 Office outpatient visit 10 minutes Santiago Bates Work Phone: [facility] Comment on above: Status post reverse arthroplasty of left shoulder (Primary Dx) Start: 07-08-2020 Patient encounter procedure Don Barrera MD QF-Syugqeo-Xrqezat Work Phone: Start: 06-15-2020 End: 06-15-2020 Postop follow up visit related to original px Santiago Bates Work Phone: [facility] Comment on above: Status post reverse arthroplasty of left shoulder (Primary Dx) Start: 05-18-2020 End: 05-18-2020 Postop follow up visit related to original px Santiago Bates Work Phone: [facility] Comment on above: Status post reverse arthroplasty of left shoulder (Primary Dx) Start: 05-12-2020 Patient encounter procedure Don Barrera MD LC-Lgconcv-Kstykak Work Phone: Start: 04-27-2020 End: 04-27-2020 Postop follow up visit related to original px Santiago Bates Work Phone: [facility] Comment on above: Status post reverse arthroplasty of left shoulder (Primary Dx); Rotator cuff arthropathy, left Start: 04-07-2020 Patient encounter procedure Don Barrera [facility] Work Phone: Start: 03-08-2020 End: 03-08-2020 Subsequent hospital visit by physician Heather Paredes Work Phone: [facility] Comment on above: Coronary artery dise ase involving [place] coronary artery of [place] heart without angina pectoris Arrived Start: 03-06-2020 End: 03-06-2020 Patient encounter procedure HEATHER PAREDES [facility] Start: 02-24-2020 End: 02-24-2020 Office outpatient visit 15 minutes Santiagojeanne Parkinson Maureen Work Phone: [facility] Comment on above: Rotator cuff arthrop athy, left (Primary Dx) Start: 12-15-2019 End: 12-15-2019 Office outpatient visit 10 minutes Vijay Viveros Work Phone: [facility] Comment on above: Nontraumatic complet e tear of left rotator cuff (Primary Dx); Rotator cuff arthropathy, left Start: 12-10-2019 End: 12-10-2019 Subsequent hospital visit by physician Vijay Viveros Work Phone: [facility] Comment on above: Nontraumatic complet e tear of left rotator cuff Start: 12-01-2019 End: 12-01-2019 Documentation procedure Gema Phillips [facility] Start: 11-26-2019 Patient encounter procedure Don Barrera [facility] Work Phone: Start: 11-14-2019 Patient encounter procedure Dioni Mcgrathedwina [facility] [place] Work Phone: Start: 11-12-2019 Patient encounter procedure Robb Jens SMITH [facility] Work Phone: Start: 11-12-2019 Patient encounter procedure Gracie Al [facility] [place] Work Phone: Start: 11-07-2019 Patient encounter procedure Santy Moore [facility] [place] Work Phone: Start: 11-05-2019 Patient encounter procedure Gracie Al [facility] [place] Work Phone: Start: 11-03-2019 Patient encounter procedure Gracie Al [facility] [place] Work Phone: Start: 10-31-2019 Patient encounter procedure Santy Moore [facility] [place] Work Phone: Start: 10-29-2019 Patient encounter procedure Martine Villafuerte [facility] [place] Work Phone: Start: 10-27-2019 End: 10-27-2019 Office outpatient visit 10 minutes Vijay Viveros Work Phone: [facility] Comment on above: Status post left hip replacement (Primary Dx); Nontraumatic complete tear of left rotator cuff Start: 10-27-2019 Patient encounter procedure Martine Villafuerte [facility] [place] Work Phone: Start: 10-24-2019 Patient encounter procedure Santy Moore [facility] [place] Work Phone: Start: 10-21-2019 Patient encounter procedure Dina Callaway [facility] Work Phone: Start: 10-14-2019 [facility] Work Phone: Start: 10-10-2019 Patient [facility] Work Phone: Start: 10-08-2019 Patient encounter procedure Robb Colindres SARAH LY-Ndpwixg-Jujkqbq Work Phone: Start: 10-03-2019 Patient encounter procedure Don Sheltond [facility] Work Phone: Start: 09-25-2019 End: 09-25-2019 Home visit Jenifer Greene [facility] Comment on above: SN HH OASIS DISCHARG E PT NON-OASIS/DISCIPL INE DISCHARGE Start: 09-23-2019 End: 09-23-2019 Postop follow up visit related to original px Vijay Viveros Work Phone: [facility] Comment on above: Status post left hip replacement (Primary Dx) Start: 09-22-2019 End: 09-23-2019 Home visit Clemente [facility] Comment on above: WELDER TOOL AND DIE ROUTINE VISIT Start: 09-22-2019 End: 09-22-2019 Home visit Jenifer Greene [facility] Comment on above: SN HH ROUTINE VISIT Start: 09-19-2019 End: 09-19-2019 Home visit Jenifer Greene [facility] Comment on above: SN HH ROUTINE VISIT Start: 09-17-2019 End: 09-17-2019 Home visit Clemente [facility] Comment on above: WELDER TOOL AND DIE ROUTINE VISIT Start: 09-17-2019 Patient encounter procedure [id number] [facility] N[facility]SE [id number] Work Phone: Start: 09-15-2019 End: 09-15-2019 Documentation procedure Gema Phillips [facility] Start: 09-15-2019 End: 09-15-2019 Home visit Clemente [facility] Comment on above: WELDER TOOL AND DIE ROUTINE VISIT SN HH ROUTINE VISIT Start: 09-12-2019 End: 09-12-2019 Home visit Milagro Leal [facility] Comment on above: [facility] START OF CARE PT INITIAL EVALUATIO N Start: 09-11-2019 Patient encounter procedure GLORIA FONG [facility] Start: 09-10-2019 End: 09-10-2019 Admission to [facility] Don Barrera [facility] Start: 09-10-2019 End: 09-25-2019 Patient encounter procedure VIJAY VIVEROS [facility] Start: 09-10-2019 End: 09-11-2019 Evaluation and management of inpatient Vijay Viveros Work Phone: [facility] Comment on above: Status post total re placement of left hip (Primary Dx); Arthritis of left hip; Arthritis of left hip Start: 08-19-2019 End: 08-19-2019 Subsequent hospital visit by physician Vijay Viveros Work Phone: [facility] CT Scan Comment on above: Arthritis of left hi p Start: 08-18-2019 Patient encounter procedure Gracie Quezada [facility] [place] Work Phone: Start: 08-13-2019 Patient encounter procedure Cecy Linn [facility] [place] Work Phone: Start: 08-11-2019 Patient encounter procedure Kelli Arteaga [facility] [place] Work Phone: Start: 08-08-2019 Patient encounter procedure Dina Callaway [facility] [place] Work Phone: Start: 08-06-2019 Patient encounter procedure Kelli Arteaga [facility] [place] Work Phone: Start: 08-01-2019 Patient encounter procedure Kelli Arteaga [facility] [place] Work Phone: Start: 07-30-2019 Patient encounter procedure Kelli Arteaga [facility] [place] Work Phone: Start: 07-25-2019 Patient encounter procedure Kelli Arteaga [facility] [place] Work Phone: Start: 07-14-2019 End: 07-14-2019 Postop follow up visit related to original px Vijay Brain Viveros Work Phone: [facility] Comment on above: Arthritis of left hi p (Primary Dx) Start: 05-19-2019 End: 05-19-2019 Office outpatient visit 15 minutes Heather Paredes [facility] Phone: [facility] Comment on above: Coronary artery dise ase involving [place] coronary artery of [place] heart without angina pectoris; Mixed hyperlipidemia Start: 04-28-2019 End: 04-28-2019 Office outpatient new 20 minutes Vijay Brain Vivreos Work Phone: [facility] Comment on above: Arthritis of right h ip (Primary Dx); Arthritis of left hip; Lumbar and sacral arthritis Start: 04-22-2018 End: 04-22-2018 Office outpatient visit 15 minutes Heather Paredes Work Phone: [facility] Patient encounter procedure Don Barrera MD [id number] Work Phone: Procedures Date Procedure Procedure Detail Performing Clinician Start: 08-06-2025 Renal function panel Elaine Kerrter [facility] Work Phone: Start: 08-06-2025 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 SWALLOW EVALUATION [facility] Work Phone: Start: 08-06-2025 Radiologic exam swallow function contrast study Elaine Kerrter [facility] Work Phone: Start: 08-04-2025 Ct [...] Genaro Barrera MD Work Phone: Start: 07-07-2025 Videosmariaa Barrera MD Work Phone: Start: 06-28-2025 Plain [...] Start: 05-20-2025 Renal function panel Elaine Madrigal [employer] Work Phone: Start: 05-19-2025 Radiologic exam abdomen 1 view Elaine Madrigal [employer] Work Phone: Start: 05-15-2025 Radiologic exam abdomen 1 view Rajwinder Omer MD Work Phone: Start: 05-15-2025 Glucose quantitative blood xcpt reagent strip Lay Waldrop MD Work Phone: Start: 05-14-2025 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 SWALLOW EVALUATION Rajwinder Omer MD [...] 05-11-2025 Basic metabolic panel calcium total Daryl Dickson Start: 05-11-2025 Radiologic exam pelvis compl minimum [...] w/posteroant ch minimum 3 views Lincoln King [employer] Work Phone: Start: 11-20-2024 Lipid 1996 panel - Serum or Plasma Lincoln King [employer] Work Phone: Start: 09-01-2024 Ecg routine ecg w/least 12 lds w/i&r Don Barrera MD Work Phone: Start: 07-31-2024 Echo tthrc r-t 2d w/wom-mode compl spec&colr d Otoniel Salcedo MD Work Phone: Start: 06-17-2024 Dup-scan aorta ivc iliac vascl/bpgs complete Don Barrera MD Work Phone: Start: 05-13-2024 Lipid 1996 panel - Serum or Plasma Wilmar 1 Start: 03-05-2024 Computerized ophthalmic imaging retina Delta Bangura MD Work Phone: Start: 02-12-2024 Adult depression screening assessment Sage Kwon MD Work Phone: Start: 12-07-2023 Ecg routine ecg w/least 12 lds trcg only w/o i&r Celso D Lemjim DO Work Phone: Start: 12-07-2023 Mri brain brain stem w/o contrast material Celso Baptiste Davin DO Work Phone: Start: 12-07-2023 Urnls dip stick/tablet rgnt auto w/o microscopy Celso Baptiste Davin DO Work Phone: Start: 12-07-2023 Comprehensive metabolic panel Celso Baptiste Davin DO Work Phone: Start: 11-16-2023 Ecg routine ecg w/least 12 lds trcg only w/o i&r Celso Baptiste Davin DO Work Phone: Start: 11-15-2023 Assay of troponin quantitative Bhargavi Feliciano PA-C Work Phone: Start: 11-15-2023 Influenza virus A and B and SARS-CoV-2 (COVID-19) identified in Respiratory specimen by DONY with probe detection Bhargavi Feliciano PA-C Work Phone: Start: 11-15-2023 Urnls dip stick/tablet rgnt auto w/o microscopy Bhargavi Feliciano PA-C Work Phone: Start: 11-15-2023 Radiologic exam chest single view Nam Feliciano PA-C Work Phone: Start: 11-15-2023 Ct [...] Work Phone: Start: 10-24-2023 SKIN PREP Eladio Kingsley DPM Work Phone: Start: 10-06-2023 Urnls dip [...] Hemoglobin and Hematocrit panel - Blood Vijay Marcoshard Work Phone: Start: 09-10-2019 Radex hip unilateral with pelvis 2-3 views Vijay Viveros Work Phone: Start: 09-10-2019 End: 09-10-2019 ARTHROPLASTY HIP ROBOTIC Vijay Viveros Work Phone: Start: 08-19-2019 Ct lower extremity [...] EJACULATION WITHIN 48 HRS. [facility] VOL24,NO.2, , PG.339 Performed By: #### 2 [id number] #### [place] [address] Start: 11-18-2014 End: 12-30-2015 History of cataract extraction S/P laser cataract surgery - Both Eyes Delta Bangura MD Work Phone: Biopsy of skin [place] Cande Barrera Work Phone: Cataract surgery Kelli Arteaga Fiberoptic colonoscopy Kelli Arteaga History of Inguinal Hernia Repair Kelli Arteaga History Of Prior Surgery Fara Arteaga Comment on above: Cath of both left and right sides withou t graft by Dr Paredes in 2010; Prosthetic arthroplasty of the hip Don Barrera Comment on above: L THR, 2018, [place]; Repair of shoulder Eligio er Cande Barrera Work Phone: Comment on above: reverse lt shoulder relplacement Dr Stacy ferrer 2019; Tonsillectomy and adenoidectomy Kelli Arteaga Total replacement of hip Chr molly Cande Barrera Work Phone: Comment on above: L THR, 2018, [place]; Plan of Treatment Date Care Activity Detail Author Start: 05-10-2035 DTaP/Tdap/Td Vaccines (2 - Td or Tdap) DTaP/Tdap/Td Vaccines (2 - Td or Tdap) [facility] Start: 11-20-2029 Lipid panel Lipid Panel [facility] Start: 05-13-2029 Lipid panel Lipid Panel [facility] Start: 11-01-2028 Lipid panel Lipid Panel [facility] Start: 04-30-2028 Lipid panel Lipid Panel [facility] Start: 12-07-2026 Diabetes Screening Diabetes Screening [facility] Start: 08-06-2026 Diabetes mellitus screening Diabetes Screening [facility] Start: 08-04-2026 Diabetes mellitus screening Diabetes Screening [facility] Start: 08-01-2026 Medicare Annual Wellness Visit Medicare Annual Wellness Visit (AWV) [facility] Start: 07-22-2026 Diabetes Screening Diabetes Screening [facility] Start: 05-20-2026 Diabetes mellitus screening Diabetes Screening [facility] Start: 05-10-2026 Diabetes mellitus screening Diabetes Screening [facility] Start: 01-02-2026 DIABETES SCREEN DIABETES SCREEN [facility] Start: 11-10-2025 Diabetes mellitus screening Diabetes Screening [facility] Start: 08-19-2025 End: 08-19-2025 Patient encounter procedure 08/19/2025 8:30 AM EDT Appointment [facility] [address] [place] [address] [facility] Start: 08-17-2025 End: 08-17-2025 Patient encounter procedure 08/17/2025 3:20 PM EDT Office Visit [place] [address] [phone] Don Barrera MD [address] [address] [facility] Start: 07-31-2025 End: 07-31-2026 RF videography Hypopharynx and Esophagus Views for swallowing function W speech and W barium contrast PO FL modified barium swallow study Imaging Routine Dysphagia, unspecified type Expected: 07/31/2025, Expires: 07/31/2026 [facility] Service Area Work Phone: Comment on above: Expected: 07/31/2025, Expires: Start: 07-31-2025 End: 07-31-2025 Patient encounter procedure 07/31/2025 1:40 PM EDT Office Visit [place] [address] [phone] Don Barrera MD [address] [address] [facility] Start: 07-28-2025 COVID-19 Vaccine ( season) COVID-19 Vaccine ( season) [facility] Start: 07-17-2025 End: 07-17-2026 CBC W Auto Differential panel - Blood [facility] Service Area Work Phone: Comment on above: Expected: 07/17/2025 (Approximate), Expi res: 07/17/2026 Start: 07-17-2025 End: 07-17-2026 Comprehensive metabolic 2000 panel - Serum or Plasma [facility] Work Phone: Comment on above: Expected: 07/17/2025 (Approximate), Expi res: 07/17/2026 Start: 07-16-2025 End: 07-16-2025 Patient encounter procedure 07/16/2025 11:30 AM EDT Office Visit [facility] Medical Office Building [address] [place] [phone] David Canela, [employer] [address] [facility], [address] [phone] [facility] Office [facility] Start: 07-16-2025 Patient discharge [facility] Start: 07-15-2025 End: 07-15-2025 Development of care plan [facility] Start: 07-15-2025 Speech therapy management [facility] Start: 07-15-2025 [facility] Start: 07-14-2025 Wound care [facility] Start: 07-14-2025 Developing a treatment plan [facility] Start: 07-14-2025 Following clinical pathway protocol [facility] Start: 07-10-2025 Referral to service [facility] Start: 07-10-2025 End: 07-10-2025 Patient encounter procedure 07/10/2025 8:00 AM EDT Office Visit [facility] [address] [place] [address] Eladio Kingsley Jr., DPM [address] [place] [address] [facility] Start: 07-09-2025 End: 07-09-2025 Patient encounter procedure 07/09/2025 11:45 AM EDT Office Visit [facility] Medical Office [facility] [address] [place] [phone] Otoniel Salcedo MD [address], [address] [place] [address] [facility] Start: 07-01-2025 [facility] Start: 06-28-2025 [facility] Start: 06-26-2025 Wound care [facility] Start: 06-24-2025 [facility] Start: 06-22-2025 Influenza vaccination Influenza Vaccine (#1) [facility] Start: 06-17-2025 Developing a treatment plan [facility] Start: 06-17-2025 Egd insert guide wire dilator passage esophagus EGD GUIDE WIRE INSERTION [facility] Start: 06-17-2025 Esophagogastroduodenoscopy submucosal injection UPPR GI SCOPE W/SUBMUC INJ [facility] Start: 06-17-2025 Development of care plan [facility] Start: 06-17-2025 Patient discharge [facility] Start: 06-16-2025 End: 06-17-2025 [facility] Start: 06-15-2025 [facility] Start: 06-13-2025 [facility] Start: 06-11-2025 [facility] Start: 06-08-2025 [facility] Start: 06-02-2025 Application of elastic bandage [facility] Start: 05-29-2025 End: 05-29-2025 Patient encounter procedure 05/29/2025 9:00 AM EDT Office Visit [facility] [address] [facility] [address] [place] [phone] [place] [address] [place] [address] [facility] Start: 05-27-2025 [facility] Start: 05-27-2025 Following clinical pathway protocol [facility] Start: 05-27-2025 Patient discharge [facility] Start: 05-26-2025 Oxygen therapy [facility] Start: 05-26-2025 Egd percutaneous placement gastrostomy tube EGD PLACE GASTROSTOMY TUBE [facility] Start: 05-26-2025 Upper gastrointestinal endoscopy for directed placement of percutaneous gastrostomy tube EGD PLACE GASTROSTOMY TUBE [facility] Start: 05-26-2025 End: 05-26-2025 Following clinical pathway protocol [facility] Start: 05-26-2025 Inhalation therapy procedure [facility] Start: 05-25-2025 Referral to gastroenterology service [facility] Start: 05-22-2025 Wound care [facility] Start: 05-21-2025 Speech therapy management [facility] Start: 05-21-2025 Development of care plan [facility] Start: 05-21-2025 [facility] Start: 05-21-2025 Developing a treatment plan [facility] Start: 05-21-2025 Verification routine [facility] Start: 05-20-2025 End: 05-21-2025 Patient referral to dietitian [facility] Start: 05-20-2025 Contact precautions [facility] Start: 05-20-2025 Consultation for treatment [facility] Start: 05-20-2025 Admission procedure [facility] Start: 05-20-2025 Introduction of urinary catheter [facility] Start: 05-20-2025 Measuring intake and output [facility] Start: 05-20-2025 Referral for physical therapy [facility] Start: 05-20-2025 Referral to occupational therapist [facility] Start: 05-20-2025 Referral to service [facility] Start: 05-20-2025 Speech therapy assessment [facility] Start: 05-20-2025 Vital signs measurements [facility] Start: 05-20-2025 End: 05-20-2025 [facility] Start: 05-20-2025 End: 11-20-2025 Comprehensive metabolic 2000 panel - Serum or Plasma Comprehensive Metabolic Panel Lab Routine Mixed hyperlipidemia Primary hypertension Expected: 05/20/2025 (Approximate), Expires: 11/20/2025 [facility] Work Phone: Comment on above: Expected: 05/20/2025 (Approximate), Expi res: 11/20/2025 Start: 05-20-2025 End: 11-20-2025 Lipid 1996 panel - Serum or Plasma Lipid Panel Lab Routine Mixed hyperlipidemia Expected: 05/20/2025 (Approximate), Expires: 11/20/2025 [facility] Work Phone: Comment on above: Expected: 05/20/2025 (Approximate), Expi res: 11/20/2025 Start: 05-20-2025 Medicare Annual Wellness Visit Medicare Annual Wellness Visit (AWV) [facility] Start: 05-20-2025 End: 11-20-2025 Prostate specific Ag [Mass/volume] in Serum or Plasma Prostate Specific Antigen, Screen Lab Routine Benign prostatic 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 lower urinary tract symptoms Screening for prostate cancer Expected: 05/20/2025 (Approximate), Expires: 11/20/2025 [facility] Work Phone: Comment on above: Expected: 05/20/2025 (Approximate), Expi res: 11/20/2025 Start: 05-20-2025 End: 05-20-2025 Patient encounter procedure 05/20/2025 8:40 AM EDT Office Visit [address] [phone] Don Barrera MD [address] [place] [address] [facility] Start: 05-19-2025 Medicare Wellness Visit Medicare Wellness Visit [facility] Start: 05-19-2025 End: 05-19-2025 ambulatory 05/19/2025 1:15 PM EDT Evaluation [facility] [address] [place] [address] Carlos Trimble T, PT [address] [place] [address] [facility] Start: 05-18-2025 End: 05-18-2025 ambulatory 05/18/2025 1:15 PM EDT Evaluation [facility] [address] [place] [phone] Carlos Trimble, PT [address] [facility] [place] [phone] Ravindra Nguyen Start: 05-12-2025 End: 05-12-2025 Patient encounter procedure 05/12/2025 2:15 PM EDT Office Visit [facility] Internal Medicine [address] [place] [phone] Raj Parker MD [address] [place] [address] [facility] Start: 05-07-2025 End: 05-07-2026 XR Cervical spine 2 or 3 Views XR cervical spine 2-3 views Imaging Routine Neck pain Expected: 05/07/2025, Expires: 05/07/2026 [facility] Service Area Work Phone: Comment on above: Expected: 05/07/2025, Expires: Start: 04-10-2025 End: 04-10-2025 Patient encounter procedure 04/10/2025 8:00 AM EDT Office Visit [facility] [address] [place] [phone] Eladio Kingsley Jr., DPM [address] [place] [phone] [facility] Start: 03-10-2025 End: 03-10-2025 Patient encounter procedure 03/10/2025 3:30 PM EDT Office Visit [facility] [address] [place] [phone] Delta Bangura MD [address] [place] [address] [facility] Comment on above: [facility] Start: 02-19-2025 COVID-19 Vaccine (7 - Moderna risk ) COVID-19 Vaccine (7 - Moderna risk ) [facility] Start: 02-19-2025 COVID-19 Vaccine (8 - season) COVID-19 Vaccine (8 - season) [facility] Start: 02-19-2025 COVID-19 Vaccine (8 - Moderna risk season) COVID-19 Vaccine (8 - Moderna risk season) [facility] Start: 02-11-2025 Depression screening using PHQ-9 (Patient Health Questionnaire 9) score [facility] Start: 12-31-2024 End: 12-31-2024 Patient encounter procedure 12/31/2024 8:15 AM EDT Office Visit [facility] Physician [facility] [address] [place] [address] Eladio Kingsley Jr., DPM [address] [place] [address] [facility] Start: 11-20-2024 End: 11-20-2025 Cholesterol in LDL [Mass/volume] in Serum or Plasma Cholesterol, LDL Direct Lab Routine Mixed hyperlipidemia Expected: 11/20/2024 (Approximate), Expires: 11/20/2025 [facility] Work Phone: Comment on above: Expected: 11/20/2024 (Approximate), Expi res: 11/20/2025 Start: 11-20-2024 End: 11-20-2025 Cobalamin (Vitamin B12) [Mass/volume] in Serum or Plasma Vitamin B12 Lab Routine Anemia, unspecified type Inflammatory polyarthropathy (Multi) Expected: 11/20/2024 (Approximate), Expires: 11/20/2025 [facility] Service Area Work Phone: Comment on above: Expected: 11/20/2024 (Approximate), Expi res: 11/20/2025 Start: 11-20-2024 End: 11-20-2025 Ferritin [Mass/volume] in Serum or Plasma Ferritin Lab Routine Anemia, unspecified type Inflammatory polyarthropathy (Multi) Expected: 11/20/2024 (Approximate), Expires: 11/20/2025 [facility] Work Phone: Comment on above: Expected: 11/20/2024 (Approximate), Expi res: 11/20/2025 Start: 11-20-2024 End: 11-20-2025 Folate [Mass/volume] in Serum or Plasma Folate Lab Routine Anemia, unspecified type Inflammatory polyarthropathy (Multi) Expected: 11/20/2024 (Approximate), Expires: 11/20/2025 [facility] Work Phone: Comment on above: Expected: 11/20/2024 (Approximate), Expi res: 11/20/2025 Start: 11-20-2024 End: 11-20-2024 Patient encounter procedure [facility] Start: 11-15-2024 Diabetes mellitus screening Diabetes Screening [facility] Start: 09-05-2024 End: 09-05-2024 Patient encounter procedure 09/05/2024 8:00 AM EST Office Visit [facility] Physician [facility] [address] [place] [phone] Eladio Kingsley Jr., DPM [address] [place] [address] [facility] Physician [facility] Start: 09-01-2024 End: 09-01-2025 CBC W Auto Differential panel - Blood CBC and Auto Differential Lab Routine Vertigo Palpitations Expected: 09/01/2024 (Approximate), Expires: 09/01/2025 [facility] Work Phone: Comment on above: Expected: 09/01/2024 (Approximate), Expi res: 09/01/2025 Start: 09-01-2024 End: 09-01-2025 Comprehensive metabolic 2000 panel - Serum or Plasma Comprehensive Metabolic Panel Lab Routine Vertigo Palpitations Expected: 09/01/2024 (Approximate), Expires: 09/01/2025 [facility] Work Phone: Comment on above: Expected: 09/01/2024 (Approximate), Expi res: 09/01/2025 Start: 09-01-2024 End: 03-01-2026 Holter monitor study Holter Or Event [facility] Routine Vertigo Palpitations Expected: 09/01/2024, Expires: 03/01/2026 [facility] Service Area Work Phone: Comment on above: Expected: 09/01/2024, Expires: Start: 09-01-2024 End: 09-01-2025 TSH with reflex to Free T4 if abnormal TSH with reflex to Free T4 if abnormal Lab Routine Vertigo Palpitations Expected: 09/01/2024 (Approximate), Expires: 09/01/2025 [facility] Work Phone: Comment on above: Expected: 09/01/2024 (Approximate), Expi res: 09/01/2025 Start: 07-31-2024 End: 07-31-2024 Patient encounter procedure 07/31/2024 8:00 AM EDT Appointment [facility] [address] [place] [address] [facility] Start: 07-03-2024 End: 07-03-2026 US Heart Transthoracic Transthoracic Echo (TTE) Complete Echocardiography Routine 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 Expected: 07/03/2024 (Approximate), Expires: 07/03/2026 [facility] Service Area Work Phone: Comment on above: Expected: 07/03/2024 (Approximate), Expi res: 07/03/2026 Start: 07-03-2024 End: 07-03-2024 Patient encounter procedure 07/03/2024 11:45 AM EDT Office Visit [facility] Medical Office Building [address] [place] [address] Otoniel Salcedo MD [address], [facility] [address] [place] [address] [facility] Start: 06-26-2024 FUV, Provider: Otoniel Salcedo, Status: Pen, Time: 8:30 AM FUV, Provider: Otoniel Salcedo, Status: Pen, Time: 8:[id number] Work Phone: Start: 06-26-2024 End: 06-26-2024 Patient encounter procedure [facility] Medical Office [facility] Start: 06-22-2024 COVID-19 Vaccine () COVID-19 Vaccine () [facility] Start: 06-22-2024 Influenza vaccination Influenza Vaccine (#1) [facility] Start: 06-06-2024 End: 06-06-2024 Patient encounter procedure 06/06/2024 8:00 AM EDT Office Visit [facility] [address] [place] [address] Eladio Kingsley Jr., DPM [address] [place] [phone] [facility] Start: 05-19-2024 End: 05-19-2024 Patient encounter procedure 05/19/2024 8:00 AM EDT Office Visit [facility] [address] [place] [address] Don Barrera MD [address] [id number] [facility] Start: 05-05-2024 End: 11-05-2024 Comprehensive metabolic 2000 panel - Serum or Plasma Comprehensive Metabolic Panel Lab Routine Mixed hyperlipidemia Primary hypertension Expected: 05/05/2024 (Approximate), Expires: 11/05/2024 [facility] Service Area Work Phone: Comment on above: Expected: 05/05/2024 (Approximate), Expi res: 11/05/2024 Start: 05-05-2024 End: 11-05-2024 Lipid 1996 panel - Serum or Plasma Lipid Panel Lab Routine Mixed hyperlipidemia Expected: 05/05/2024 (Approximate), Expires: 11/05/2024 [facility] Work Phone: Comment on above: Expected: 05/05/2024 (Approximate), Expi res: 11/05/2024 Start: 05-05-2024 Medicare Annual Wellness Visit Medicare Annual Wellness Visit (AWV) [facility] Start: 05-05-2024 End: 11-05-2024 Prostate specific Ag [Mass/volume] in Serum or Plasma Prostate Specific Antigen, Screen Lab Routine Screening for prostate cancer Expected: 05/05/2024 (Approximate), Expires: 11/05/2024 [facility] Work Phone: Comment on above: Expected: 05/05/2024 (Approximate), Expi res: 11/05/2024 Start: 05-04-2024 History and physical examination, annual for health maintenance Wellness Visit [facility] Start: 03-10-2024 Diabetes mellitus screening Diabetes Screening [facility] Start: 02-29-2024 End: 02-29-2024 Patient encounter procedure 02/29/2024 8:00 AM EDT Office Visit [facility] [address] [place] [phone] Eladio Kingsley Jr., DPM [address] [place] [address] [facility] Physician [facility] Start: 12-23-2023 COVID-19 Vaccine ( season) COVID-19 Vaccine () [facility] Start: 12-19-2023 End: 12-19-2023 ambulatory 12/19/2023 9:15 AM EST Treatment [facility] [address] [place] [phone] Guilherme Elmore, PT [address] [facility] [place] [address] [facility] Start: 12-17-2023 End: 12-17-2023 Patient encounter procedure 12/17/2023 11:20 AM EST Office Visit [facility] [address] [place] [address] Don Barrera MD [address] [place] [address] [facility] Start: 12-14-2023 End: 12-14-2023 ambulatory 12/14/2023 11:30 AM EST Treatment [facility] [address] [place] [phone] Cecy Linn, [employer] [address] [facility] [place] [address] [facility] Start: 12-12-2023 End: 12-12-2023 ambulatory 12/12/2023 2:15 PM EST Treatment [address] [address] Guilherme Elmore, PT [address] [facility] [place] [address] [facility] Start: 12-06-2023 End: 12-06-2023 Patient encounter procedure 12/06/2023 2:00 PM EST Office Visit [facility] [address] [facility] [address] [place] [phone] Daysi Arenas, [address] [facility], [address] [place] [address] [facility] Start: 11-30-2023 End: 11-30-2023 Patient encounter procedure 11/30/2023 8:00 AM EST Office Visit [facility] [address] [place] [phone] Eladio Kingsley Jr., DPM [address] [place] [address] [facility] Start: 11-21-2023 End: 11-21-2023 ambulatory 11/21/2023 3:45 PM EST Evaluation [facility] [address] [place] [address] Guilherme Elmore, PT [address] [facility] [place] [id number] [facility] Start: 11-15-2023 End: 11-15-2023 Patient encounter procedure 11/15/2023 8:15 AM EST Office Visit [facility] [address] [phone] Daysi Arenas DO [address] [facility] [address] [place] [id number] [facility] Start: 11-06-2023 End: 11-06-2023 Patient encounter procedure 11/06/2023 7:45 AM EST Appointment [facility] [address] [place] [address] [facility] Start: 11-05-2023 End: 11-05-2023 Patient encounter procedure [facility] Start: 11-04-2023 End: 05-04-2024 Cholesterol in LDL [Mass/volume] in Serum or Plasma Cholesterol, LDL Direct Lab Routine Mixed hyperlipidemia Expected: 11/04/2023 (Approximate), Expires: 05/04/2024 [facility] Work Phone: Comment on above: Expected: 11/04/2023 (Approximate), Expi res: 05/04/2024 Start: 11-04-2023 End: 05-04-2024 Comprehensive metabolic 2000 panel - Serum or Plasma Comprehensive Metabolic Panel Lab Routine Primary hypertension Expected: 11/04/2023 (Approximate), Expires: 05/04/2024 [facility] Service Area Work Phone: Comment on above: Expected: 11/04/2023 (Approximate), Expi res: 05/04/2024 Start: 11-01-2023 End: 11-01-2024 RF Esophagus Views W barium contrast PO FL GI esophagram Imaging Routine 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 Hiatal hernia Expected: 11/01/2023 (Approximate), Expires: 11/01/2024 [facility] Service Area Work Phone: Comment on above: Expected: 11/01/2023 (Approximate), Expi res: 11/01/2024 Start: 10-31-2023 End: 10-31-2023 Patient encounter procedure 10/31/2023 8:00 AM EST Office Visit [facility] [address] [place] [phone] Eladio Kingsley Jr., DPM [address] [place] [address] [facility] Physician [facility] Start: 10-22-2023 Advance Directive Discussion Advance Directive Discussion [facility] Start: 10-22-2023 Behavioral Health Screening Behavioral Health Screening [facility] Start: 10-19-2023 COVID-19 Vaccine (5 - Moderna series) COVID-19 Vaccine (5 - Moderna series) [facility] Start: 10-19-2023 Covid-19 Vaccine ( season) Covid-19 Vaccine () [facility] Start: 10-06-2023 End: 10-06-2024 Urinalysis complete panel - Urine Urinalysis with Reflex Microscopic Lab Routine Dysuria Expected: 10/06/2023 (Approximate), Expires: 10/06/2024 [facility] Work Phone: Comment on above: Expected: 10/06/2023 (Approximate), Expi res: 10/06/2024 Start: 08-06-2023 End: 08-06-2023 Telemedicine consultation with patient 08/06/2023 8:15 AM EDT Telemedicine [facility] [address] [facility] [address] [place] [address] Robb Colindres MD [address] [facility], [facility] [address] [place] [address] [facility] Start: 06-22-2023 Influenza vaccination [facility] Start: 06-21-2023 FUV, Provider: Otoniel Salcedo, Status: Pen, Time: 8:30 AM FUV, Provider: Otoniel Salcedo, Status: Pen, Time: 8:30 AM [id number] Work Phone: Start: 06-21-2023 Patient encounter procedure Outpatient [facility] Cardiology [facility] Start: 21-Jun-2023 8:30 tOoniel Salcedo Intent [facility] Cardiology [facility] Start: 05-11-2023 End: 05-11-2023 Patient encounter procedure 05/11/2023 8:00 AM EDT Office Visit [facility] [address] [place] [address] Eladio Kingsley Jr., DPM [address] [place] [address] [facility] Start: 05-04-2023 End: 05-04-2025 Vascular US abdominal aorta anuerysm AAA screening Vascular US abdominal aorta anuerysm AAA screening Vascular Ultrasound Routine Infrarenal abdominal aortic aneurysm (AAA) without rupture ([facility]) Expected: 05/04/2023 (Approximate), Expires: 05/04/2025 [facility] Work Phone: Comment on above: Expected: 05/04/2023 (Approximate), Expi res: 05/04/2025 Start: 05-04-2023 EPV, Provider: Don Barrera, Status: Pen, Time: 8:00 AM EPV, Provider: Don Barrera, Status: Pen, Time: 8:00 AM [facility] Work Phone: Start: 04-27-2023 EPV, Provider: Don Barrera, Status: Pen, Time: 8:20 AM EPV, Provider: Don Barrera, Status: Pen, Time: 8:20 AM [facility] Work Phone: Start: 02-09-2023 End: 02-09-2023 Patient encounter procedure 02/09/2023 Office Visit PodiatrEladio iDaz Jr., DPM [address] [place] [address] [facility] Physician [facility] Start: 11-17-2022 End: 11-17-2022 Patient encounter procedure 11/17/2022 Office Visit PodEladio Bahena Jr., ROMA [address] [place] [address] [facility] Physician [facility] Start: 10-27-2022 EPV, Provider: Don Barrera, Status: Pen, Time: 8:40 AM EPV, Provider: Don Barrera, Status: Pen, Time: 8:40 AM [id number] Work Phone: Start: 10-27-2022 Patient encounter procedure [facility] Start: 10-22-2022 ADVANCE DIRECTIVE DISCUSSION ADVANCE DIRECTIVE DISCUSSION [facility] Start: 10-22-2022 DEPRESSION ASSESSMENT DEPRESSION ASSESSMENT [facility] Start: 09-27-2022 COVID-19 Vaccine (5 - Booster for Moderna series) COVID-19 Vaccine (5 - Booster for Moderna series) [facility] Start: 09-27-2022 COVID-19 Vaccine (5 - Moderna series) COVID-19 Vaccine (5 - Moderna series) [facility] Start: 08-18-2022 End: 08-18-2022 Patient encounter procedure 08/18/2022 Office Visit PodiatrEladio Diaz Jr., DPM [address] [place] [address] [facility] Start: 06-22-2022 Influenza vaccination Sequential Influenza Vaccine (#1) [facility] Start: 06-16-2022 COVID-19 Vaccine (5 - Booster for Moderna series) COVID-19 Vaccine (5 - Booster for Moderna series) [facility] Start: 06-15-2022 NPV, Provider: Otoniel Salcedo, Status: Pen, Time: 8:30 AM NPV, Provider: Otoniel Salcedo, Status: Pen, Time: 8:30 AM [facility] Work Phone: Start: 05-19-2022 End: 05-19-2022 Patient encounter procedure 05/19/2022 Office Visit Podiatry Eladio Kingsley Jr., DPM [address] [place] [address] [facility] Start: 05-17-2022 FUV, Provider: Robb Colindres II, Status: Pen, Time: 1:00 PM FUV, Provider: Robb Colindres II, Status: Pen, Time: 1:00 PM [id number] d Work Phone: Start: 04-26-2022 EPV, Provider: Don Barrera, Status: Pen, Time: 8:20 AM EPV, Provider: Don Barrera, Status: Pen, Time: 8:[address] [facility] Work Phone: Start: 03-08-2022 COVID-19 Vaccine (4 - Booster for Moderna series) COVID-19 Vaccine (4 - Booster for Moderna series) [facility] Start: 02-03-2022 End: 02-03-2022 Patient encounter procedure 02/03/2022 Office Visit PodiatrEladio Diaz Jr., DPM [address] [place] [address] [facility] Start: 12-09-2021 COVID-19 Vaccine (4 - Booster for Moderna series) COVID-19 Vaccine (4 - Booster for Moderna series) [facility] Start: 11-15-2021 FUV, Provider: Zoran Bennett, Status: Pen, Time: 11:15 AM FUV, Provider: Zoran Bennett, Status: Pen, Time: 11:15 AM -[facility] Work Phone: Start: 10-26-2021 EPV, Provider: Don Barrera, Status: Pen, Time: 8:00 AM EPV, Provider: Don Barrera, Status: Pen, Time: 8:00 AM [facility] Work Phone: Start: 08-12-2021 End: 08-12-2021 Patient encounter procedure [facility] Start: 07-01-2021 End: 07-01-2021 Patient encounter procedure 07/01/2021 Office Visit Sports Medicine Vijay Viveros MD [address] [place], [place] [address] [phone] [facility] Start: 06-23-2021 PTRECHADUL, Provider: Dioni Elmore, Status: Pen, Time: 1:15 PM PTRECHADUL, Provider: Dioni Elmore, Status: Pen, Time: 1:15 PM [facility] Work Phone: Start: 06-22-2021 Influenza vaccination Sequential Influenza Vaccine (#1) [facility] Start: 06-21-2021 PTFUADULT4, Provider: Santy Moore, Status: Pen, Time: 1:15 PM PTFUADULT4, Provider: Santy Moore, Status: Pen, Time: 1:15 PM [facility] Work Phone: Start: 06-21-2021 PTFUADULT4, Provider: Dina Callaway, Status: Pen, Time: 1:15 PM PTFUADULT4, Provider: Dina Callaway, Status: Pen, Time: 1:15 PM [facility] [place] Work Phone: Start: 06-16-2021 PTFUADULT4, Provider: Santy Moore, Status: Pen, Time: 1:15 PM PTFUADULT4, Provider: Santy Moore, Status: Pen, Time: 1:15 PM [facility] Work Phone: Start: 06-14-2021 PTFUADULT4, Provider: Santy Moore, Status: Pen, Time: 1:15 PM PTFUADULT4, Provider: Santy Moore, Status: Pen, Time: 1:15 PM [facility] Work Phone: Start: 06-10-2021 PTFUADULT4, Provider: Cecy Linn, Status: Pen, Time: 10:00 AM PTFUADULT4, Provider: Cecy Linn, Status: Pen, Time: 10:00 AM [facility] Work Phone: Start: 06-07-2021 PTFUADULT4, Provider: Santy Moore, Status: Pen, Time: 2:45 PM PTFUADULT4, Provider: Santy Moore, Status: Pen, Time: 2:45 PM [facility] Work Phone: Start: 06-02-2021 PTFUADULT4, Provider: Cornelius Moses, Status: Pen, Time: 10:00 AM PTFUADULT4, Provider: Cornelius Moses, Status: Pen, Time: 10:00 AM [facility] Work Phone: Start: 05-30-2021 PTFUADULT4, Provider: Dioni Elmore, Status: Pen, Time: 5:15 PM PTFUADULT4, Provider: Dioni Elmore, Status: Pen, Time: 5:15 PM [facility] Work Phone: Start: 05-20-2021 End: 05-20-2021 Patient encounter procedure [facility] Start: 05-18-2021 FUV, Provider: Robb Colindres II, Status: Pen, Time: 1:00 PM FUV, Provider: Robb Colindres II, Status: Pen, Time: 1:00 PM [facility] Work Phone: Start: 05-13-2021 End: 05-13-2021 Patient encounter procedure [facility] Start: 05-09-2021 End: 05-09-2021 Patient encounter procedure 05/09/2021 Office Visit Cardiology Heather Paredes MD [address] [place] [address] [phone] [facility] Office Start: 11-24-2020 COVID-19 Vaccine (2 - Moderna 2-dose series) COVID-19 Vaccine (2 - Moderna 2-dose series) [facility] Start: 11-19-2020 End: 11-19-2020 Office Visit 11/19/2020 Office Visit Sports Medicine Vijay Viveros MD [address] [facility] [address] [address] [phone] [facility] Start: 10-12-2020 End: 10-12-2020 Office Visit 10/12/2020 Office Visit Sports Medicine Santiago Bates MD [address] [place] [address] [phone] [facility] Start: 07-13-2020 End: 07-13-2020 Follow-Up 07/13/2020 Follow-Up Sports Santiago England MD [address] [place] [address] [phone] [facility] Start: 06-22-2020 Influenza vaccination given [facility] Start: 06-15-2020 End: 06-15-2020 Follow-Up 06/15/2020 Follow-Up Sports Santiago England MD [address] [place] [address] [phone] [facility] Start: 05-18-2020 End: 05-18-2020 Follow-Up 05/18/2020 Follow-Up Sports Medicine Santiago Bates MD [address] [facility] [place] [address] [phone] [facility] Start: 05-10-2020 End: 05-10-2020 Office Visit 05/10/2020 Office Visit Cardiology Heather Paredes MD [address] [address] [phone] [facility] Office Start: 05-03-2020 End: 05-03-2020 Office Visit 05/03/2020 Office Visit Cardiology Heather Paredes MD [address] [address] [phone] [facility] Office Start: 12-15-2019 End: 12-15-2019 Follow-Up 12/15/2019 Follow-Up Sports Medicine Vijay Viveros MD [address] [facility] [place] [address] [phone] [facility] Start: 12-08-2019 End: 12-08-2019 Follow-Up 12/08/2019 Follow-Up Sports Medicine Vijay Viveros MD [address] [facility] [address] [phone] [facility] Start: 11-13-2019 Ultrasound Kidney Bilateral [id number] Work Phone: Start: 11-06-2019 End: 11-06-2019 Appointment 11/06/2019 Appointment Home Health Services Jenifer Greene RN [facility] Start: 11-03-2019 End: 11-03-2019 Home Care Visit 11/03/2019 Home Care Visit Home Health Services Jenifer Greene RN [facility] Start: 10-31-2019 End: 10-31-2019 Home Care Visit 10/31/2019 Home Care Visit Home Health Services Jenifer Greene RN [facility] Start: 10-27-2019 End: 10-27-2019 Follow-Up 10/27/2019 Follow-Up Sports Medicine Vijay Viveros MD [address] [place] [address] [phone] [facility] Start: 10-27-2019 End: 10-27-2019 Home Care Visit 10/27/2019 Home Care Visit Home Health Services Jenifer Greene RN [facility] Start: 10-24-2019 End: 10-24-2019 Home Care Visit 10/24/2019 Home Care Visit Home Health Services Jenifer Greene RN [facility] Start: 10-20-2019 End: 10-20-2019 Home Care Visit 10/20/2019 Home Care Visit Home Health Services Jenifer Greene RN [facility] Start: 10-17-2019 End: 10-17-2019 Home Care Visit 10/17/2019 Home Care Visit Home Health Services Jenifer Greene RN [facility] Start: 10-13-2019 End: 10-13-2019 Home Care Visit 10/13/2019 Home Care Visit Home Health Services Jenifer Greene RN [facility] Start: 10-10-2019 End: 10-10-2019 Home Care Visit 10/10/2019 Home Care Visit Home Health Services Jenifer Greene RN [facility] Start: 10-06-2019 End: 10-06-2019 Home Care Visit 10/06/2019 Home Care Visit Home Health Services Jenifer rGeene RN [facility] Start: 10-03-2019 End: 10-03-2019 Home Care Visit 10/03/2019 Home Care Visit Home Health Services Jenifer Greene RN [facility] Start: 10-02-2019 End: 10-02-2019 Home Care Visit 10/02/2019 Home Care Visit Home Health Services Jenifer Greene RN [facility] Start: 09-29-2019 End: 09-29-2019 Home Care Visit 09/29/2019 Home Care Visit Home Health Services Jenifer Greene RN [facility] Start: 09-26-2019 End: 09-26-2019 Home Care Visit 09/26/2019 Home Care Visit Home Health Services Jenifer Greene RN [facility] Start: 09-25-2019 End: 09-25-2019 Home Care Visit [facility] Start: 09-23-2019 End: 09-23-2019 Follow-Up 09/23/2019 Follow-Up Sports Medicine Vijay Viveros MD [address] [place] [address] [phone] [facility] Start: 09-22-2019 End: 09-22-2019 Home Care Visit [facility] Start: 09-19-2019 End: 09-19-2019 Home Care Visit 09/19/2019 Home Care Visit Home Health Services Jenifer Greene RN [facility] Start: 09-17-2019 End: 09-17-2019 Home Care Visit 09/17/2019 Home Care Visit Home Health Services Clemente Martínez PTA [facility] Start: 09-15-2019 End: 09-15-2019 Home Care Visit 09/15/2019 Home Care Visit Home Health Services Jenifer Greene RN [facility] Start: 09-12-2019 End: 09-12-2019 Appointment 09/12/2019 Appointment Home Health Services Milagro Leal RN [facility] Start: 09-12-2019 End: 09-12-2019 Home Care Visit 09/12/2019 Home Care Visit Home Health Services Chary Mayorga PT [facility] Start: 09-10-2019 End: 09-10-2019 Hospital Encounter [facility] Periop Comment on above: 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 [employer] Start: 08-25-2019 End: 08-25-2019 Surgical Consult 08/25/2019 Surgical Consult Sports Medicine Vijay Viveros MD [address] [place] [address] [phone] [facility] Start: 06-22-2019 Influenza vaccination given SEQUENTIAL INFLUENZA VACCINE (#1) [facility] Start: 05-19-2019 End: 05-19-2019 Office Visit 05/19/2019 Office Visit Cardiology Heather Paredes MD [address] [place] [address] [phone] [facility] Start: 06-22-2018 Influenza vaccination SEQUENTIAL INFLUENZA VACCINE (#1) [facility] Start: 10-11-2017 Pneumococcal vaccination Pneumococcal Vaccine Age 65+ (2 of 2 - PPSV23) [facility] Start: 2011 Respiratory Syncytial Virus Immunization: Risk, 60-74 Risk, or 75+ (1 - 1-dose 75+ series) Respiratory Syncytial Virus Immunization: Risk, 60-74 Risk, or 75+ (1 - 1-dose 75+ series) [facility] Start: 2001 Fall risk assessment Falls Risk Assessment [facility] Start: 2001 Pneumococcal vaccination PNEUMOCOCCAL VACCINE AGE 65+ (1 of 2 - PCV13) [facility] Start: 1996 RSV patients and/or patients aged 60+ years (1 - 1-dose 60+ series) RSV patients and/or patients aged 60+ years (1 - 1-dose 60+ series) [facility] Start: 1996 RSV Vaccine (1 - 1-dose 60+ series) RSV Vaccine (1 - 1-dose 60+ series) [facility] Start: 1996 Zoster vaccine hzv live for subcutaneous use ZOSTER VACCINE [facility] Start: 1986 Administration of herpes zoster vaccine Zoster Vaccines (1 of 2) [facility] Start: 1958 DTaP/Tdap/Td Vaccines (1 - Tdap) DTaP/Tdap/Td Vaccines (1 - Tdap) [facility] Start: 1955 SHINGRIX VACCINE (1 of 2) SHINGRIX VACCINE (1 of 2) [facility] Start: 1955 Urine microalbumin profile [facility] Start: 1948 Adolescent depression screening assessment Depression Screening (PHQ9) [facility] Start: 1948 Depression screening using PHQ-9 (Patient Health Questionnaire 9) score [facility] Start: 1942 Pneumococcal Vaccine: Age 65+ (1 of 2 - PPSV23) Pneumococcal Vaccine: Age 65+ (1 of 2 - PPSV23) [facility] Start: 1942 PNEUMOCOCCAL: 65+ (1 - PCV) PNEUMOCOCCAL: 65+ (1 - PCV) [facility] Start: 1939 History and physical examination, annual for health maintenance Wellness Visit [facility] Start: 1936 Depression screening using PHQ-9 (Patient Health Questionnaire 9) score DEPRESSION SCREENING (PHQ9) [facility] Start: 1936 Fall risk assessment Falls Risk Assessment [facility] Start: 1936 Medicare Annual Wellness Visit Medicare Annual Wellness Visit (AWV) [facility] Start: 1936 End: 1936 Tetanus vaccination [facility] Anion gap in Serum or Plasma [facility] Anion gap in Serum or Plasma [facility] Anion gap in Serum or Plasma [facility] Anion gap in Serum or Plasma [facility] BUN/Creatinine ratio [facility] BUN/Creatinine ratio [facility] BUN/Creatinine ratio [facility] BUN/Creatinine ratio [facility] Calcium [Mass/volume ] in Serum or Plasma [facility] Calcium [Mass/volume ] in Serum or Plasma [facility] Calcium [Mass/volume ] in Serum or Plasma [facility] Calcium [Mass/volume ] in Serum or Plasma [facility] Carbon dioxide, tota l [Moles/volume] in Central venous blood [facility] Carbon dioxide, tota l [Moles/volume] in Central venous blood [facility] Carbon dioxide, tota l [Moles/volume] in Central venous blood [facility] Carbon dioxide, tota l [Moles/volume] in Central venous blood [facility] Comprehensive metabo lic 2000 panel Comprehensive Metabolic Panel [facility] Work Phone: Comment on above: Approx [id number] Approx [id number] Creatinine [Mass/vol ume] in Serum or Plasma [facility] Creatinine [Mass/vol ume] in Serum or Plasma [facility] Creatinine [Mass/vol ume] in Serum or Plasma [facility] Creatinine [Mass/vol ume] in Serum or Plasma [facility] End: 07-22-2023 ECG 12 lead ECG 12 lead ECG STAT Once for 1 Occurrences starting 07/22/2023 until 07/22/2023 [facility] Service Area Work Phone: Comment on above: Once for 1 Occurrences starting 07/22/20 23 until 07/22/2023 End: 11-11-2023 ECG 12 lead [facility] Service Area Work Phone: Comment on above: Once for 1 Occurrences starting 11/11/19 until 11/11/2023 End: 11-15-2023 ECG 12 Lead [facility] Area Work Phone: Comment on above: Once for 1 Occurrences starting 11/15/19 until 11/15/2023 ECG 12 lead ECG 12 lead ECG STAT 12/07/2023 12:50 PM EST [facility] Work Phone: End: 05-10-2025 ECG 12 lead ECG 12 lead ECG STAT Once for 1 Occurrences starting 05/10/2025 until 05/10/2025 [facility] Area Work Phone: Comment on above: Once for 1 Occurrences starting 05/10/20 until 05/10/2025 End: 08-04-2025 ECG 12 lead [facility] Work Phone: Comment on above: Once for 1 Occurrences starting 08/04/20 until 08/04/2025 As needed until disc ontinued starting 08/04/2025 Erythrocyte mean cor puscular volume determination [facility] Erythrocyte mean cor puscular volume determination [facility] Erythrocyte mean cor puscular volume determination [facility] Erythrocyte mean cor puscular volume determination [facility] End: 11-11-2023 Extra Urine [place] T[facility] Extra Urine [facility] Lab Timed Once for 1 Occurrences starting 11/11/2023 until 11/11/2023 [facility] Work Phone: Comment on above: Once for 1 Occurrences starting 11/11/19 until 11/11/2023 End: 11-15-2023 Extra Urine [place] Tube Extra Urine [facility] Lab Timed Once for 1 Occurrences starting 11/15/2023 until 11/15/2023 [facility] Work Phone: Comment on above: Once for 1 Occurrences starting 11/15/19 until 11/15/2023 End: 12-07-2023 Extra Urine [place] Tube [facility] Work Phone: Comment on above: Once for 1 Occurrences starting 12/07/19 until 12/07/2023 End: 08-04-2025 Extra Urine [place] Tube [facility] Work Phone: Comment on above: Once for 1 Occurrences starting 08/04/20 until 08/04/2025 Glucose [Mass/volume ] in Serum or Plasma [facility] Glucose [Mass/volume ] in Serum or Plasma [facility] Glucose [Mass/volume ] in Serum or Plasma [facility] Glucose [Mass/volume ] in Serum or Plasma [facility] Hematocrit [Volume F raction] of Blood [facility] Hematocrit [Volume F raction] of Blood [facility] Hematocrit [Volume F raction] of Blood [facility] Hematocrit [Volume F raction] of Blood [facility] Hemoglobin [Mass/vol ume] in Blood [facility] Hemoglobin [Mass/vol ume] in Blood [facility] Hemoglobin [Mass/vol ume] in Blood [facility] Hemoglobin [Mass/vol ume] in Blood [facility] History of cataract extraction H istory of cataract extraction [facility] History of hernia repair History of hernia repair [facility] History of tonsillectomy History of tonsillectomy and adenoidectomy [facility] End: 09-02-2024 Holter monitor study [facility] Service Area Work Phone: Comment on above: Once for 1 Occurrences starting 09/02/20 until 09/02/2024 End: 05-11-2025 Incentive spirometry Instruct Incentive spirometry Instruct Respiratory Care Routine Once for 1 Occurrences starting 05/11/2025 until 05/11/2025 [facility] Service Area Work Phone: Comment on above: Once for 1 Occurrences starting 05/11/20 until 05/11/2025 End: 08-04-2025 Incentive spirometry Instruct Incentive spirometry Instruct Respiratory Care Routine Once for 1 Occurrences starting 08/04/2025 until 08/04/2025 [facility] Service Area Work Phone: Comment on above: Once for 1 Occurrences starting 08/04/20 until 08/04/2025 Leukocytes [#/volume] in Blood [facility] Leukocytes [#/volume] in Blood [facility] Leukocytes [#/volume] in Blood [facility] Leukocytes [#/volume] in Blood [facility] Lipid panel Lipid Panel [facility] Work Phone: Comment on above: Approx [id number] Mean corpuscular hem oglobin concentration determination [facility] Mean corpuscular hem oglobin concentration determination [facility] Mean corpuscular hem oglobin concentration determination [facility] Mean corpuscular hem oglobin concentration determination [facility] Mean corpuscular hem oglobin determination [facility] Mean corpuscular hem oglobin determination [facility] Mean corpuscular hem oglobin determination [facility] Mean corpuscular hem oglobin determination [facility] Measurement of renal function [facility] Measurement of renal function [facility] Measurement of renal function [facility] Measurement of renal function [facility] End: 07-29-2024 MR Lumbar spine WO contrast [facility] Service Area Work Phone: Comment on above: Once for 1 Occurrences starting 07/29/20 until 07/29/2024 End: 07-29-2024 MR Pelvis WO contrast [facility] Service Area Work Phone: Comment on above: Once for 1 Occurrences starting 07/29/20 until 07/29/2024 Neutrophil count [facility] Neutrophil count [facility] Neutrophil count [facility] Neutrophil count [facility] Neutrophil percent d ifferential count [facility] Neutrophil percent d ifferential count [facility] Neutrophil percent d ifferential count [facility] Neutrophil percent d ifferential count [facility] Platelets [#/volume] in Blood [facility] Platelets [#/volume] in Blood [facility] Platelets [#/volume] in Blood [facility] Platelets [#/volume] in Blood [facility] Potassium measurement [facility] Potassium measurement [facility] Potassium measurement [facility] Potassium measurement [facility] Procedure on tissue specimen [facility] Comment on above: Release Upon Ordering for 1 Occurrences starting 09/10/2019, 1 completed End: 11-15-2023 Pulse oximetry, continuous Pulse oximetry, continuous Respiratory Care STAT Continuous until discontinued starting 11/15/2023 [facility] Service Area Work Phone: Comment on above: Continuous until discontinued starting 0 11/15/2023 Red blood cell count [facility] Red blood cell count [facility] Red blood cell count [facility] Red blood cell count [facility] Red cell distributio n width determination [facility] Red cell distributio n width determination [facility] Red cell distributio n width determination [facility] Red cell distributio n width determination [facility] Serum chloride measurement [facility] Serum chloride measurement [facility] Serum chloride measurement [facility] Serum chloride measurement [facility] Serum LDL cholestero l measurement LDL, Direct, Serum [facility] Work Phone: Comment on above: Approx [id number] Sodium measurement [facility] Sodium measurement [facility] Sodium measurement [facility] Sodium measurement [facility] Urea nitrogen [Mass/ volume] in Serum or Plasma [facility] Urea nitrogen [Mass/ volume] in Serum or Plasma [facility] Urea nitrogen [Mass/ volume] in Serum or Plasma [facility] Urea nitrogen [Mass/ volume] in Serum or Plasma [facility] End: 11-11-2023 Urinalysis complete W Reflex Culture panel - Urine [facility] Work Phone: Comment on above: Once (Lab) for 1 Occurrences starting until 11/11/2023 End: 11-15-2023 Urinalysis complete W Reflex Culture panel - Urine [facility] Work Phone: Comment on above: STAT (Lab) for 1 Occurrences starting until 11/15/2023 End: 12-07-2023 Urinalysis complete W Reflex Culture panel - Urine [facility] Service Area Work Phone: Comment on above: Once (Lab) for 1 Occurrences starting until 12/07/2023 End: 08-04-2025 Urinalysis complete W Reflex Culture panel - Urine [facility] Service Area Work Phone: Comment on above: Once (Lab) for 1 Occurrences starting until 08/04/2025 End: 05-08-2025 XR Cervical spine 2 or 3 Views [facility] Serv ice Area Work Phone: Comment on above: Once for 1 Occurrences starting 05/08/20 25 until 05/08/2025 End: 06-12-2024 XR Hip Views [facility] Service Area Work Phone: Comment on above: Once for 1 Occurrences starting 06/12/20 24 until 06/12/2024 End: 03-27-2024 XR Shoulder - right 2 Views [facility] Service Area Work Phone: Comment on above: Once for 1 Occurrences starting 03/27/20 24 until 03/27/2024 [facility] NEGATED: Highlighted row has been ruled out! Planned Goals not documented [facility] Work Phone: Immunizations Immunization Date Immunization Notes Care Provider [facility] 07-15-2025 influenza, high dose seasonal, preservative-free Dr. Devan Barrera MD Work Phone: [facility] 06-02-2025 Covid (Spikevax) Dr. Edmund Barrera MD Work Phone: [facility] 05-10-2025 tetanus toxoid, redu lamar diphtheria toxoid, and acellular pertussis vaccine, adsorbed Santiago Menendez DO Work Phone: [facility] 08-22-2024 Moderna COVID-19 vaccine, 12 years and older (50mcg/0.5mL)(Spikevax) Don Barrera MD Work Phone: [facility] Work Phone: 07-28-2024 RSV, 60 Years And Ol rajni (AREXVY) [facility] Work Phone: 07-07-2024 influenza virus vaccine, unspecified formulation [facility] Work Phone: 08-24-2023 Moderna COVID-19 vaccine, Fall 2022, 12 yeasrs and older (50mcg/0.5mL) Don Barrera MD Work Phone: [facility] Work Phone: 07-16-2023 influenza, high dose seasonal, preservative-free Don Barrera MD Work Phone: [facility] Work Phone: 07-16-2023 influenza virus vaccine, unspecified formulation Eladio Kingsley Jr., DPM Work Phone: [facility] 08-02-2022 Moderna COVID-19 Biv al Booster 50 MCG/0.5ML Intramuscular Suspension Don Barrera Work Phone: [facility] Work Phone: 08-02-2022 Moderna SARS-CoV-2 Vaccination Don Barrera MD Work Phone: [facility] Work Phone: 02-14-2022 Moderna COVID-19 Vaccine 100 MCG/0.5ML Intramuscular Suspension Don Barrera Work Phone: [facility] 09-08-2021 Moderna COVID-19 Vaccine 100 MCG/0.5ML Intramuscular Suspension Don Barrera Work Phone: [facility] Work Phone: 07-19-2021 influenza, high dose seasonal, preservative-free Don Barrera Work Phone: [facility] Work Phone: 07-19-2021 influenza, seasonal, injectable Don Barrera Work Phone: [facility] Work Phone: Comment on above: Series: 07-19-2021 influenza virus vaccine, unspecified formulation Don Barrera MD Work Phone: [facility] Work Phone: 11-24-2020 Moderna COVID-19 Vaccine 100 MCG/0.5ML Intramuscular Suspension Don Barrera MD [facility] Work Phone: Comment on above: Series: 10-27-2020 Moderna COVID-19 Vaccine 100 MCG/0.5ML Intramuscular Suspension Don Barrera MD [facility] Work Phone: Comment on above: Series: 10-11-2020 pneumococcal polysaccharide vaccine, 23 valent; Translations: [Pneumococcal polysaccharide vaccine, 23 valent] Don Barrera MD [facility] Comment on above: Series: 07-26-2020 influenza, high dose seasonal, preservative-free; Translations: [Influenza, high dose seasonal, preservative-free] Don Barrera MD [facility] Work Phone: Comment on above: Series: 10-08-2018 zoster vaccine recombinant Don Barrera Work Phone: [facility] Work Phone: 08-05-2018 zoster vaccine recombinant Don Barrera Work Phone: [facility] Work Phone: 07-25-2018 influenza, high dose seasonal, preservative-free Don Barrera Work Phone: [facility] Work Phone: 10-11-2016 pneumococcal conjuga te vaccine, 13 valent [facility] Work Phone: Comment on above: Series: 10-04-2009 novel [id number], preservative-free, injectable Don Barrera Work Phone: [facility] Work Phone: Payers Date Payer Category Payer Self-pay 2022 Medicare supplementa l policy (as second payer) [employer] [id number] 2015 Miscellaneous or Other A[employer] COMM ERCIAL [id number] 2015 Unknown [id number] [id number]. [id number] 2013 Private Health Insurance [facility] AARP SUPPLEMENT [id number] 2013-Present [phone] [address] [place] [address] Indemnity [id number] [id number] 2013 Unknown [id number] 2001 Medicare [id number]. 2.7.3.652096.315 2001 Medicare [id number] 2001 Medicare [id number] 1.2.840.771336.1.13.385. 2.7.3.026008.315 2001 Medicare [id number]. 1.13.385. 2.7.3.759329.315 2001 Unknown 2001 Medicare [id number] 1936 Unknown [id number] 2.16.840.1.294230.3.579. 2.903 1936 Unknown [id number] 2.16840.1.070555.3.579. 2.90 1936 Unknown [id number] 2.16840.1.429281.3.579. 2.900 1936 Unknown [id number] 2.16840.1.057324.3.579. 2.1069 1936 Unknown [id number] 2.840.1.661227.3.579. 2.106 1936 Unknown [id number] 2.840.1.229802.3.579. 2.106 1936 Unknown [id number] 2.16840.1.776306.3.579. 2.106 1936 Unknown [id number] 2.16840.1.002021.3.579. 2.903 1936 Unknown [id number] 2.16840.1.948050.3.579. 2.90 1936 Unknown [id number] 2.16840.1.702324.3.579. 2.903 1936 Unknown [id number] 2.16840.1.765438.3.579. 2.90 1936 Unknown [id number] 2.16840.1.893978.3.579. 2.903 1936 Unknown [id number] 2.16840.1.269055.3.579. 2.1244 1936 Unknown [id number] 2.840.1.740653.3.579. 2.1243 1936 Unknown [id number] 2.840.1.483567.3.579. 2.1243 1936 Unknown [id number] 2.840.1.798469.3.579. 2.1243 1936 Unknown [id number] 2.840.1.748358.3.579. 2.1243 1936 Unknown [id number] 2.840.1.164243.3.579. 2.1242 1936 Unknown [id number] 2.0.1.131098.3.579. 2.1242 1936 Unknown [id number] 2..1.021164.3.579. 2.1242 1936 Unknown [id number] 2.0.1.137036.3.579. 2.1242 1936 Unknown [id number] 2.0.1.481550.3.579. 2.1242 1936 Unknown [id number] 2.840.1.095211.3.579. 2.1242 1936 Unknown [id number] 2.0.1.430216.3.579. 2.1244 1936 Unknown [id number] 2.840.1.022313.3.579. 2.1244 1936 Unknown [id number] 2.840.1.778355.3.579. 2.1244 1936 Unknown [id number] 2.840.1.487612.3.579. 2.1244 1936 Unknown [id number] 2.840.1.725915.3.579. 2.1244 1936 Unknown [id number] 2.16.840.1.233939.3.579. 2.1245 1936 Unknown [id number] 2.16.840.1.119916.3.579. 2.1245 Unknown [id number] 2.16.840.1.302850.3.579. 2.462 Unknown [id number] 2.16.840.1.081302.3.579. 2.462 Unknown [id number] 2.16.840.1.829477.3.579. 2.462 Unknown [id number] 2.16.840.1.822295.3.579. 2.462 Unknown [id number] 2.16.840.1.013002.3.579. 2.462 Unknown [id number] 2.16.840.1.622405.3.579. 2.462 Unknown [id number] 2.16.840.1.880642.3.579. 2.462 Unknown [id number] 2.16.840.1.739920.3.579. 2.462 Unknown [id number] 2.16.840.1.101886.3.579. 2.462 Unknown [id number] 2.16.840.1.143234.3.579. 2.462 Social History Date Type Detail Facility Start: 04-22-2018 End: 05-19-2024 Tobacco smoking status [facility] Former smoker [facility] Start: 1935 Sex Assigned At Not on file [facility] Start: 05-31-2016 Tobacco Comment quit 25+yrs ago [facility] Start: 07-14-2019 End: 04-10-2025 Alcohol intake Current non-drinker of alcohol (finding) [facility] Start: 08-19-2019 End: 05-19-2022 Tobacco Comment quit 25+yrs ago pipe [facility] Start: 02-05-2022 End: 11-20-2024 Exposure to SARS-CoV-2 (event) Not sure [facility] Start: 06-15-2020 End: 05-19-2024 Tobacco use and exposure Never used [facility] Start: 11-17-2022 End: 08-05-2025 Former smoker Former smoker [facility] Work Phone: End: 10-22-1962 History of tobacco use Current smoker [facility] End: 10-22-1962 History of tobacco use Cigarette Smoker [facility] Tobacco smoking consumption unknown [facility] Start: 11-17-2022 End: 08-05-2025 Tobacco use panel [facility] Start: 04-28-2019 Gender identity Identifies as male gender (finding) [facility] Start: 04-28-2019 Sexual orientation Heterosexual (fin ding) [facility] Start: 11-18-2014 Tobacco smoking status NHIS Never smoked tobacco [facility] Start: 02-21-2023 End: 08-04-2025 Alcohol intake Ex-drinker (finding) [facility] Start: 1935 Sex [facility]igned At [facility] Start: 09-15-2022 National Score (1-100), lower number is lower risk 80 [facility] History of tobacco use Pipe Smoker [facility] Work Phone: History of tobacco use Passive smoker [facility] Work Phone: (I/We) worried whether (my/our) food would run out before (I/we) got money to buy more. Never true [facility] Work Phone: In the past 12 months, was there a time when you were not able to pay the mortgage or rent on time? No [facility] Work Phone: Start: 09-15-2022 Sex Male (finding) [facility] NEGATED: Highlighted row - - [facility] Work Phone: Medical Equipment Procedure Code Equipment Code Equipment Origin al Text Equipment Identifier Dates EGD, with monitored anesthesia care Gastrostomy tube kit, medicated [id number] FDA Start: 05-26-2025 Cup 54mm Cluster Milian Trident Psl - [id number], [id number] FDA Start: 09-10-2019 Insert 36mm 10de g F Comp X3 Trident - [id number], [id number] FDA Start: 09-10-2019 Stem 127deg Sz6 Fem Accolade Ii - [id number] FDA Start: 09-10-2019 Head 36mm 5mm V4 0 Fem Lfit Anatomic - [id number], [id number]_imp FDA Start: 09-10-2019 Humeral Insert 3 2 Mm Case [id number]_[facility] Start: 04-12-2020 Comment on above: Description: Convert ed from [facility]. Please see archived information for full log information. Glenosphere, Concentric, 32mm, Mary Jo X 2mm Thk Case [id number]_[facility] Start: 04-12-2020 Comment on above: Description: Convert ed from [facility]. Please see archived information for full log information. Clip, Aneurysm, Yasargil, Std, Perm, Fen, 9mm,150g, Ti Case [id number]_[facility] Start: 04-12-2020 Comment on above: Description: Convert ed from [facility]. Please see archived information for full log information. Screw, Eripheral , 4.5mm X 24mm Case [id number]_[facility] Start: 04-12-2020 Comment on above: Description: Convert ed from [facility]. Please see archived information for full log information. Screw, Eripheral , 4.5mm X 24mm Case [id number]_[facility] Start: 04-12-2020 Comment on above: Description: Convert ed from [facility]. Please see archived information for full log information. Humeral Stem Padma e [id number]_[facility] Start: 04-12-2020 Comment on above: Description: Convert ed from [facility]. Please see archived information for full log information. Screw, Periphera l, 4.5mm X 28mm Case [id number] Start: 04-12-2020 Comment on above: Description: Convert ed from [facility] Acute. Please see archived information for full log information. Baseplate, Gleni od, 28mm Case [id number] Start: 04-12-2020 Comment on above: Description: Convert ed from [facility] Acute. Please see archived information for full log information. Screw, Periphera l, 4.5mm X 16mm Case [id number] Start: 04-12-2020 Comment on above: Description: Convert ed from [facility] Acute. Please see archived information for full log information. Cup, Humeral, 32 mm, Mary Jo X 4mm Thk Case [id number] Start: 04-12-2020 Comment on above: Description: Convert ed from [facility] Acute. Please see archived information for full log information. Goals Date Patient Goal Desired Activity /State Functional Status Date Assessment Result Facility 08-05-2025 Functional status [facility] 08-05-2025 [facility] Phone: 08-04-2025 Total score [AUDIT-C] -1 025 11:54 PM EDT Elisbaeth Chang, ANNA [facility] Work Phone: 08-04-2025 Patient Health Questionnaire 2 item (PHQ-2) [Reported] [facility] Work Phone: 08-04-2025 Functional status [facility] Work Phone: 08-04-2025 [facility] Work Phone: 08-04-2025 Functional status 1 [facility] Work Phone: 08-04-2025 [facility] Work Phone: 08-04-2025 [facility] Work Phone: 08-04-2025 Functional status [facility] Work Phone: 08-04-2025 [place] - suicide severity rating scale screener - recent [C-SSRS] [facility] Work Phone: 07-31-2025 Patient Health Questionnaire 2 item (PHQ-2) [Reported] [facility] Work Phone: 07-31-2025 Functional status 90/50 [facility] Work Phone: 07-31-2025 Vital signs 68 07/31/2025 1: 50 PM EDT Molly Alvarado MA [facility] Work Phone: 07-31-2025 [facility] Work Phone: 07-17-2025 Functional status 100/60 025 8:17 AM EDT Molly Alvarado MA 100/60 [facility] Work Phone: 07-17-2025 Vital signs 99 07/17/2025 8: 17 AM EDT Molly Alvarado MA [facility] Work Phone: 07-16-2025 Functional status Chair [facility] Work Phone: 06-17-2025 Functional status Bedrest [facility] Work Phone: 06-01-2025 Functional status Chair [facility] Work Phone: 05-27-2025 Functional status Chair [facility] Work Phone: 05-26-2025 Functional status Bedrest [facility] Work Phone: 05-10-2025 [place] - suicide severity rating scale screener - recent [C-SSRS] [facility] Work Phone: [facility] NEGATED: Highlighted row Functional performance Functional status health issues are not documented Disease [facility] Work Phone: Mental Status Date Assessment Result Facility 07-16-2025 Cognitive function Voice/Name [facility] Work Phone: 06-17-2025 Cognitive function Voice/Name [facility] Work Phone: 06-17-2025 Cognitive function Voice/Name [facility] Work Phone: 06-16-2025 Cognitive function Appropriate;C ooperativ e [facility] Work Phone: 05-31-2025 Cognitive function Voice/Name [facility] Work Phone: 05-28-2025 Cognitive function Appropriate;C ooperativ e [facility] Work Phone: 05-26-2025 Cognitive function Sedated [facility] Work Phone: 05-26-2025 Cognitive function Patient Orien tation Person [facility] Work Phone: 05-24-2025 Cognitive function Appropriate[facility]: [facility] Work Phone: NEGATED: Highlighted row Cognitive function [Interpretation] Cognitive status health issues are not documented [facility] Work Phone: Clinical Notes 11-18-2014 to 08-09-2025 Kodi Nuens LPN - 08/09/2025 2:15 PM Carmencita Nunes LPN - 08/09/2025 2:15 PM Rodrick Gallo RN - 08/07/2025 10:30 AM Louis Garcia RN - 08/06/2025 8:55 AM EDT Note Date & Type Note Facility 08-09-2025 Nurse Note Patient discharged with transport to SNF. Ivs removed, discharge instructions complete. Patients belongings handed off to transport team. [facility] Work Phone: 08-09-2025 Nurse Note Patient [...] HR-83 O2- 90% documented in this encounter [facility] Work Phone: 08-09-2025 History of Present illness Narrative Fawn Leigh Nisha "Andres" is a 89 y.o. male on day 5 of admission presenting with Head injury, initial encounter. Patient medically ready for discharge today to [facility] SNF at 1200, transport provided by [facility]. RN provided report betzy [phone]. Spoke with Dyia () to confirm discharge plan Timur Klein [facility] TRAUMA SERVICE - PROGRESS NOTE Patient Name: Fawn Cameron Admit Date: [id number] : 1935 AGE: 89 y.o. GENDER: male ======== MECHANISM OF INJURY: 89 yo M s/p fall this am when getting out of bed. Pt. [place] weak and legs gave out when getting gup this am. Went to osh, CT head and cervical spine obtained. Injuries: right parafalcine SDH, resolution of previous right SAH. Transferred to [facility] for further trauma and NSGY eval. Recent admission to trauma service in April. 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 Patient was found to have right orbital [...] Facility Name (N/A for scene EMR run): [facility] ED INJURIES: right parafalcine SDH OTHER MEDICAL [...] been advanced to easy to chew and [place] thick liquids. -MBS today, failed. GOC 08/06, continue easy to chew diet and nectar thick liquids accepting risk of aspiration -Home diet ordered -IS -Strict I/Os -BR -Monitor electrolytes as needed, replete as needed Proph: SCDs, LVX Dispo: Continue care on floor. PT/OT rec'd snf. Discharge tomorrow. Pt. And plan discussed with Dr. Jung. Elaine Madrigal, FOOD BROKER-AREA FORESTER Trauma Surgery [id number] Total face to face time spent with [...] Therapy Treatment Patient Name: Fawn Campos Department: [place] [address] Room: [facility] Today's Date: 08/07/2025 Time Calculation Start Time: [...] Pt completed the Tinetti balance test scoring Ambulation/Gait Training Ambulation/Gait Training Performed: Yes Ambulation/Gait [...] of Assistance 2: Moderate assistance Outcome Measures: [facility] Basic Mobility Turning from your back to [...] - 08/07/2025 12:30 PM EDT Pt scored on Tinetti indicating High risk of falls [facility] TRAUMA SERVICE - PROGRESS NOTE Patient Name: Fawn Cameron Admit Date: [id number] : 1935 AGE: 89 y.o. GENDER: male ======== MECHANISM OF INJURY: 89 yo M s/p fall this am when getting out of bed. Pt. [place] weak and legs gave out when getting gup this am. Went to osh, CT head and cervical spine obtained. Injuries: right parafalcine SDH, resolution of previous right SAH. Transferred to [facility] for further trauma and NSGY eval. Recent admission to trauma service in April. 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 Patient was found to have right orbital [...] Facility Name (N/A for scene EMR run): [facility] ED INJURIES: right parafalcine SDH OTHER MEDICAL [...] been advanced to easy to chew and [place] thick liquids. -MBS today, failed. GOC 08/06, continue easy to chew diet and nectar thick liquids accepting risk of aspiration -Home diet ordered -IS -Strict I/Os -BR -Monitor electrolytes as needed, replete as needed Proph: SCDs, LVX Dispo: Continue care on floor. PT/OT rec'd snf. Pt. And plan discussed with Dr. Jung. Elaine Madrigal, TEETEE-AREA FORESTER Trauma Surgery [id number] Total face to face time spent with [...] [17-18] BP: (98-177)/(62-82) Height: [167.6 cm (5' 6")] Weight: [65.3 kg (143 lb 15.4 oz)] [...] and imaging pertinent for today's encounter. Transitional Hog Cooler Note: Patient discussed with medical team (trauma resident), per trauma team patient is not medically ready. Pending orthostatics, plan for repeat. Discharge dispo: Plan for patient to discharge to [facility] when medically ready. TCC sent updates to [...] Sunday08/09/2025 at 12pm [facility]. Ilsa Carr RN BSN Transitional Hog Cooler UPDATE 08/07/2025 IMM signed and placed in chart, copy provided to patient and family. TCC met with patient and patient's at bedside to provide update on discharge plan. Patient and family expressed understanding and appreciation of information and is agreeable to discharge plan. Bedside nurse and unit control worker updated. Ilsa Carr RN BSN Transitional Hog Cooler Subjective BERNADETTE OVN Yesterday received another 500 [...] 18 18 18 Height 1.676 m (5' 6") Weight (lb) 143.96 BMI 23.24 kg/m2 BSA (m2) 1.74 m2 Vitals: 08/06/25 1442 Weight: 65.3 kg (143 lb 15.4 oz) Relevant Results Lab Results Component Value Date TSH 4.88 (H) 05/12/2025 [id number] 1,043 (H) 08/06/2025 [id number] 44 08/06/2025 Results [...] Value Ventricular Rate 69 Atrial Rate 69 [place] Interval 166 QRS Duration 92 QT Interval 404 QTC Calculation(Bazett) 432 P Stella 104 R Stella 11 T Stella 26 QRS Count 11 Q Onset 224 [...] Need for ambulatory devices: walker Assessment/Plan Fawn Brown" is a 89 y.o. male on day [...] over the weekend, please page Geriatrics pager [phone] Selam Jerry MD [1] Current Facility-Administered Medications [...] 30 mg 30 mg subcutaneous q12h Elaine Mendoza OxfordJALEEL melaraAREA FORESTER 30 mg at 08/07/25 0647 escitalopram (Lexapro) tablet 5 mg 5 mg oral Daily Gauri Ortiz PA-C 5 mg at 08/06/25 0859 folic acid (Folvite) tablet 1 mg 1 mg oral Daily Gauri Ortiz PA-C 1 mg at 08/06/25 0859 levETIRAcetam (Keppra) tablet 500 mg 500 mg oral BID Elaine JALEEL BlevinsAREA FORESTER 500 mg at 08/06/252111 metoprolol tartrate (Lopressor) tablet 25 mg 25 mg oral BID ElaineJALEEL HartmanAREA FORESTER 25 mg at 08/06/252111 oxygen (O2) therapy [...] decision making as documented in the note. [facility] TRAUMA SERVICE - PROGRESS NOTE Patient Name: Fawn Cameron Admit Date: [id number] : 1935 AGE: 89 y.o. GENDER: male ======== MECHANISM OF INJURY: 89 yo M s/p fall this am when getting out of bed. Pt. [place] weak and legs gave out when getting gup this am. Went to osh, CT head and cervical spine obtained. Injuries: right parafalcine SDH, resolution of previous right SAH. Transferred to [facility] for further trauma and NSGY eval. Recent admission to trauma service in April. 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 Patient was found to have right orbital [...] Facility Name (N/A for scene EMR run): [facility] ED INJURIES: right parafalcine SDH OTHER MEDICAL [...] been advanced to easy to chew and [place] thick liquids. -MBS today, failed. GOC today, [...] plan discussed with Dr. Jung. Elaine Madrigal, FOOD BROKER-AREA FORESTER Trauma Surgery [id number] Total face to face time spent with [...] [17-18] BP: (100-176)/(50-82) Height: [167.6 cm (5' 6")] Weight: [65.3 kg (143 lb 15.4 oz)] [...] Therapy Treatment Patient Name: Fawn Campos Department: [place] [address] Room: [address] [place] [address] Today's Date: 08/06/2025 Time Calculation Start Time: [...] to complete Stairs Stairs: No Outcome Measures: [facility] Basic Mobility Turning from your back to [...] 1:07 PM Brynn Lincoln PTA Rehab Office: [phone] Cosigned by Beth Jung PT at 08/06/2025 1:47 PM EDT Transitional Hog Cooler Note: Patient 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 Pending orthostatics. Discharge dispo: Plan for patient to discharge to SNF. Patient remains under review with SNF [facility]. [facility] sent updated clinicals to facility and inquired if facility is able to accept, pending response. Patient will not require pre-cert prior to discharge. Ilsa Carr SAW HANDLE ASSEMBLER Transitional Hog Cooler Physical Therapy Therapy Communication Note Patient Name: Fawn Campos Department: [facility] Room: [address] [place], [place] [address] Today's Date: 08/06/2025 Discipline: Physical Therapy Missed Visit: PT Missed Visit: Yes Missed Visit Reason: Missed Visit Reason: Other (Comment) (Pt off unit at [facility]allow [facility], will re-attempt as time permits.) Missed Time: Attempt 08/06/25 at 8:06 AM Brynn Lincoln PTA Rehab Office: [phone] Cosigned by Beth Jung PT at 08/06/2025 9:50 AM EDT Subjective Yesterday afternoon remained orthostatic and given another 500 ml bolus Systolic lying was 146, sitting 135 and standing 116 MINT MACHINE OPERATOR swallow study ordered this AM Pt says [...] pain meds on sched tylenol Objective Vitals: 08/06/257 BP: 156/50 Pulse: 62 Resp: 17 Temp: [...] Component Value Date TSH 4.88 (H) 05/12/2025 [id number] 283 05/12/2025 [id number] 18 (L) 05/12/2025 Results [...] Value Ventricular Rate 69 Atrial Rate 69 AZ Interval 166 QRS Duration 92 QT Interval 404 QTC Calculation(Bazett) 432 P Stella 104 R Stella 11 T Stella 26 QRS Count 11 Q Onset 224 [...] Need for ambulatory devices: walker Assessment/Plan Fawn Cameron "Andres" is a 89 y.o. male on day [...] neuro deficits. Remains orthostatic but improving. Discussed MINT MACHINE OPERATOR results and pt accepts risk of aspiration [...] over the weekend, please page Geriatrics pager [phone] Selam Jerry MD [1] Current Facility-Administered Medications [...] mg 500 mg oral BID Elaine Madrigal APRN-AREA FORESTER 500 mg at 08/05/252137 metoprolol tartrate (Lopressor) tablet 25 mg 25 mg oral BID Elaine Madrigal APRN-AREA FORESTER 25 mg at 08/05/252137 oxygen (O2) therapy [...] & Treatment Patient Name: Andres Cameron Department: [place] [address] Room: [id number]- Today's Date: 08/05/2025 Time Calculation Start Time: [...] Prior Function Per Pt/Caregiver Report Level of [place]: Independent with ADLs and functional transfers, Independent [...] management) Trials/Comments 2: x1 bed>chair Outcome Measures: [facility] Basic Mobility Turning from your back to [...] Therapy Evaluation/Treatment Patient Name: Fawn Campos Department: [place] [address] Room: [id number] Today's Date: 08/05/25 Time Calculation Start Time: [...] Built-in shower seat Prior Function: Level of [place]: Independent with ADLs and functional transfers, Independent with homemaking with ambulation ADL Assistance: Independent Homemaking Assistance: Independent Ambulatory Assistance: Independent Vocational: 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 Prior Function Comments: pt denies other falls; recent admission with d/c to SNF, was d/c home end june and was active with home therapy, [...] LUE LUE: Within Functional Limits Outcome Measures: [facility] Daily Activity Putting on and taking off [...] 1:34 PM Estela Peters OT Rehab Office: [phone] 08/05/25 1155 Rapid Rounds Attendance Provider;Care Transitions Expected Discharge Disposition SNF Today we still await: Clinical stability;Placement process;Customer Complaint Service Supervisor recommendations (Comment) (Pending PT/OT.) Review at Escalation Rounds No escalation needed Per previous TCC note, patient had positive experience at [facility]'s TCU and would like to return if SNF needed. Requested PT/OT notes. Will not need precert. Started referral in [facility]. Melody Casey RN, TCC [facility] TRAUMA SERVICE - PROGRESS NOTE Patient Name: Fawn Cameron Admit Date: [id number] : 1935 AGE: 89 y.o. GENDER: male ======== MECHANISM OF INJURY: 89 yo M s/p fall this am when getting out of bed. Pt. [place] weak and legs gave out when getting gup this am. Went to osh, CT head and cervical spine obtained. Injuries: right parafalcine SDH, resolution of previous right SAH. Transferred to [facility] for further trauma and NSGY eval. Recent admission to trauma service in April. 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 Patient was found to have right orbital [...] Facility Name (N/A for scene EMR run): [facility] ED INJURIES: right parafalcine SDH OTHER MEDICAL [...] been advanced to easy to chew and [place] thick liquids. -Home diet ordered -IS -Strict I/Os -BR -Monitor electrolytes as needed, replete as needed Proph: SCDs, hold chemoprophylaxis for 48 hours after stable head bleed, can start tomorrow. Dispo: Continue care on floor. Pt. And plan discussed with Dr. Jung. Elaine Madrigal, FOOD BROKER-[facility] Trauma Surgery [id number] Total face to face time spent with [...] [9-20] BP: (131-173)/(62-96) Height: [167.6 cm (5' 6")] Weight: [65.3 kg (144 lb)] SpO2: [93 [...] were you homeless or living in a residential (including now)? N Transportation Needs In the [...] Service Intensity of Service 0-30 min Fawn Brown" is a 89 y.o. male on day [...] incident and had a good experience with [facility]'s TCU and would like patient to return there if rehabilitation is needed. Patient currently active with [facility] for home PT/OT. Patient's family denies any housing, transportation, or financial concerns. [facility] will continue to follow patient for discharge planning. NOK: Diya() Dialysis: No Home O2: No Home Health: Home PT/OT [facility] Pharmacy: [facility](mail order) [facility] DME: Walker, rollator, shower chair, bedside commode [facility] Medication History Review Fawn Brown" is a 89 y.o. male admitted for No Principal Problem: There is no principal problem currently on the Problem List. Please update the Problem List and refresh.. Pharmacy reviewed the patient's szrqz-lb-rwhzwhvia medications and allergies for accuracy. Medications ADDED: N/A Medications CHANGED: Acetaminophen Cardura Prilosec Medications REMOVED/NOT TAKING: D3 Trexall The list below reflects the updated WELDER TOOL AND DIE list. Prior to Admission Medications Prescriptions Last [...] Allergies Patient accepts M2B at discharge. Sources: [facility] Pharmacy dispense history Patient Interview Unable to provide any details Spouse Diya () Good historian Chart Review Care Everywhere Additional Comments: Pts was at beside, she had a med list with her. SAMMIE ASTUDILLO Linen Grader 08/04/25 Secure Chat preferred If no response call [employer] or [employer] "Med Rec" documented in this encounter [facility] Work Phone: 08-09-2025 Plan of care note The patient's goals for the shift include The clinical goals for the shift include Pt remain free from further injury throughout the shift. [facility] Work Phone: 08-09-2025 Miscellaneous Notes The patient's goals for the shift include The clinical goals for the shift include Pt remain free from further injury throughout the shift. The patient's goals for the shift include The clinical goals for the shift include pt will remain free of injury and have strict intake and output recordings [facility] shift The clinical goals for the shift include Pt will remain free from falls and injury throughout the shift The patient's goals for the shift include The clinical goals for the shift include pt will remain free of injury and have adequate pain control during shift PATIENT: FAWN CAMERON : 1935 ADMIT DATE: 08/04/2025 1:50 PM DISCH DATE: RESPONDING PROVIDER #: [id number] PROVIDER RESPONSE TEXT: I agree with elementary secretary diagnosis of moderate malnutrition on 08/06/25 CDI [...] areas of subcutaneous fat loss and muscle wasting" Treatment: nutritional supplements Risk Factors: age Options provided: -- I agree with elementary secretary diagnosis of moderate malnutrition on 08/06/25 -- [...] Directive/Living Will: Yes Health Care Power of Inspector [employer]: Yes Other: N/A Communication of Medical Status/Prognosis: Discussed swallow study results with patient that aspiration with all consistencies was seen. [place] to be due to anatomical deficits and [...] RDN, LD at 08/06/2025 3:18 PM EDT The patient's [...] RA, vestibular migraines, and BPH transferred to [facility] on 08/04 after fall when getting out [...] to SNF. ,,,, documented in this encounter [facility] Work Phone: 08-09-2025 Hospital course Narrative Discharge Diagnosis Head injury, initial encounter Issues Requiring Follow-Up SDH Test Results Pending At Discharge Pending Labs No current pending labs. Hospital Course 89M with history of TIA, CAD, AAA, HTN, HLD, GERD, dysphagia s/p PEG, RA, vestibular migraines, and BPH transferred to [facility] on 08/04 after fall when getting out [...] Vaccination 10/27/2020, 11/24/2020, 09/08/2021, 02/14/2022, 08/02/2022 Novel [id number], preservative-free 10/04/2009 Pneumococcal conjugate vaccine, 13-valent (PREVNAR [...] Follow-Up Future Appointments Date Time Provider Department Center 08/17/2025 3:20 PM Don Barrera MD [id number] [facility] 08/19/2025 8:30 AM [facility] X-RAY FLUORO 1 VENKAT [place] Information provided in AVS to call to schedule follow up with Neurosurgery. GINA Terry documented in this encounter [facility] Work Phone: 08-08-2025 Plan of care note The patient's goals for the shift include The clinical goals for the shift include pt will remain free of injury and have strict intake and output [facility] 08-08-2025 Plan of care note The clinical goals for the shift include Pt will remain free from falls and injury throughout the shift [facility] Work Phone: 08-08-2025 Plan of care note The patient's goals for the shift include The clinical goals for the shift include pt will remain free of injury and have adequate pain control during shift [facility] Work Phone: 08-07-2025 Note Formatting of this n ote might be different from the original. PATIENT: FAWN CAMERON : 1935 ADMIT DATE: 08/04/2025 1:50 PM DISCH DATE: RESPONDING PROVIDER #: [id number] PROVIDER RESPONSE TEXT: I agree with elementary secretary diagnosis of moderate malnutrition on 08/06/25 CDI [...] areas of subcutaneous fat loss and muscle wasting" Treatment: nutritional supplements Risk Factors: age Options provided: -- I agree with elementary secretary diagnosis of moderate malnutrition on 08/06/25 -- Other - I will add my own diagnosis -- Refer to Clinical Documentation Reviewer Query created by: Adela Avina on 08/07/2025 12:19 PM Electronically signed by: ELAINE FUENTES 08/07/2025 3:24 PM [facility] Work Phone: 08-07-2025 Hospital Discharge instructions Selam Jerry MD - 08/07/2025 1:28 PM EDT Recommend consideration of flomax for urinary retention if needed upon discharge as has less of an impact on systemic blood pressure compared to afluzosin documented in this encounter [facility] Work Phone: 08-07-2025 Plan of care note The clinical goals for the shift include Pt will remain free from falls throughout the shift [facility] Work Phone: 08-07-2025 Nurse Note Ortho's completed Patient tolerated well and remained stable throughout the event. Respirations remained even and unlabored. Denies any pain or discomfort. Pt was transferred into chair per his request and family is at bedside. Lying B/P 137/71 MAP 93 HR 72 Sitting B/P 137/82 MAP 99 HR 84 Standing B/P 126/70 MAP 88 HR 99 [facility] 08-07-2025 Plan of care note The patient's goals for the shift include The clinical goals for the shift include pt will have stable vs [facility] 08-07-2025 Plan of care note The patient's goals for the shift include The clinical goals for the shift include pt will have stable vs [facility] Work Phone: 08-06-2025 Consult note Associated Order (s): IP CONSULT TO NUTRITION SERVICES Nutrition Initial Assessment: Nutrition Assessment Reason for Assessment: Admission nursing screening Patient is a 89 y.o. male s/p fall 08/04 when getting out of bed. Pt. [place] weak and legs gave out when getting up 08/04. Went to osh, CT head and cervical spine obtained. Injuries: right parafalcine SDH, resolution of previous right SAH. Transferred to [facility] for further trauma and NSGY eval PMHx: GERD, HTN, Osteoarthritis, PADMA, CAD, Remote TIA, Infrarenal AAA Nutrition History: Energy Intake: Fair 50-75 % Food and Nutrient History: This bond writer met with pt, pt was sitting [...] Allergy: (None) Anthropometrics: Height: 167.6 cm (5' 6") Weight: 65.3 kg (143 lb 15.4 oz) [...] Vit B12: Lab Results Component Value Date [id number] 283 05/12/2025 , Folate: Lab Results Component [...] Energy Estimated Needs in 24 hours (kCal): (3618-7499) Method for Estimating Needs: MSJ = 1261 [...] medications: oxygen Cosigned by Sharon Rivera RDN, LORE at 08/06/2025 3:19 PM EDT [facility] 08-06-2025 Consult note Associated Order (s): IP CONSULT TO NUTRITION SERVICES Nutrition Initial Assessment: Nutrition Assessment Reason for Assessment: Admission nursing screening Patient is a 89 y.o. male s/p fall 08/04 when getting out of bed. Pt. [place] weak and legs gave out when getting up 08/04. Went to osh, CT head and cervical spine obtained. Injuries: right parafalcine SDH, resolution of previous right SAH. Transferred to [facility] for further trauma and NSGY eval PMHx: GERD, HTN, Osteoarthritis, PADMA, CAD, Remote TIA, Infrarenal AAA Nutrition History: Energy Intake: Fair 50-75 % Food and Nutrient History: This bond writer met with pt, pt was sitting [...] Allergy: (None) Anthropometrics: Height: 167.6 cm (5' 6") Weight: 65.3 kg (143 lb 15.4 oz) BMI (Calculated): 23.25 IBW/kg (Dietitian Calculated): 64.5 kg Percent of IBW: 101 % Weight History: Pt reports no major wt changes recently. His UBW is 144lbs which he states he weighed 1 wk ago at a [facility] Wt Readings from Last 24 Encounters: [...] Vit B12: Lab Results Component Value Date [id number] 283 05/12/2025 , Folate: Lab Results Component [...] Energy Estimated Needs in 24 hours (kCal): (4048-7251) Method for Estimating Needs: MSJ = 1261 [...] Information Primary Emergency Contact: Diya Cameron Address: [address] [place] Relation: Spouse Typewriter Repairer needed? No Reason For Consult: medical management and med review History Of Present Illness: Fawn Cameron "Andres" is a 89 y.o. male w/ h/o [...] home from SNF. Called EMS. Presented to [facility] ED. Vitals stable. EKG no ischemic changes. CT showing new R parafalcine subdural hematoma. Transfer to [facility]. At [facility] vitals stable. Admitted to trauma. NSGY consulted - BP goal <160, resume ASA 08/07. Last Asa 08/03. Started on Keppra 500 [...] admitted 05/20 after fall while volunteering at [facility] and sustained injuries to the R orbital [...] scan outpt as hx of alendronate. At [facility] and then went home end of Jun Due to dysphagia liquids and solids, PEG placed 05/26 at [facility] Weight 65 kg was 66 kg in [...] side. 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 Highest Level of Education: Post-Graduate Degree Community Resources: Home PT/OT [facility] : No Current living environment: 2 story but [...] Transportation: D, Medications: D, Handle Finances: A Cameron Scale: 1 Allergies Patient has no known [...] Directive/Living Will: Yes Health Care Power of Inspector Wire Products: Yes Other: N/A Code Status: DNR Confusion [...] Component Value Date TSH 4.88 (H) 05/12/2025 [id number] 283 05/12/2025 VITD25 18 (L) 05/12/2025 Results [...] w IV contrast Narrative: Interpreted By: Radha Raza, and Chaparro Fernandez STUDY: CT CHEST ABDOMEN PELVIS W IV CONTRAST; 08/04/2025 3:18 pm INDICATION: Signs/Symptoms:fall, SDH new, now new R hip pain COMPARISON: CT chest abdomen pelvis 05/10/2025 ACCESSION NUMBER(S): [id number] ORDERING CLINICIAN: KATHERINE POTTS TECHNIQUE: CT of [...] as stated. This study was interpreted at [place], [place]. MACRO: None Signed by: Radha Raza 08/04/2025 5:23 PM Dictation workstation: [id number] CT lumbar spine retrospective reconstruction protocol, CT thoracic spine retrospective reconstruction protocol Narrative: Interpreted By: Gracie Carpenter and Gus Rubio STUDY: CT THORACIC SPINE RETROSPECTIVE RECONSTRUCTION PROTOCOL; CT LUMBAR SPINE RETROSPECTIVE RECONSTRUCTION PROTOCOL; 08/04/2025 3:18 pm INDICATION: Signs/Symptoms:fall. COMPARISON: CT thoracic and lumbar spine 05/10/2025 ACCESSION NUMBER(S): [id number]; [id number] ORDERING CLINICIAN: KATHERINE POTTS TECHNIQUE: Multiplanar reformatted [...] Weber MD. This study was interpreted at [place], [place]. MACRO: None. Signed by: Gracie Carpenter 08/04/2025 4:13 PM Dictation workstation: [id number] ECG 12 lead Normal sinus rhythm Poor R-wave progression ; consider anterior infarct, lead placement, or normal variant Abnormal ECG When compared with ECG of 30-JUL-2025 15:00, (unconfirmed) Right bundle branch block is no longer Present CT head wo IV contrast Narrative: Interpreted By: Gracie Carpenter and Liu Scott STUDY: CT HEAD WO IV CONTRAST; 08/04/2025 3:18 pm INDICATION: Signs/Symptoms:SDH stability scan. COMPARISON: CT head 08/04/[address] head 05/10/2025 ACCESSION NUMBER(S): [id number] ORDERING CLINICIAN: KATHERINE POTTS TECHNIQUE: Noncontrast axial [...] Weber MD. This study was interpreted at [place], [place]. MACRO: None Signed by: Gracie Carpenter 08/04/2025 4:05 PM Dictation workstation: [id number] XR hip right with pelvis when performed 2 or 3 views, XR femur right 2+ views Narrative: Interpreted By: Clement Estevez, STUDY: XR FEMUR RIGHT 2+ VIEWS; XR HIP RIGHT WITH PELVIS WHEN PERFORMED 2 OR 3 VIEWS; ; 08/04/2025 3:00 pm INDICATION: Signs/Symptoms:fall r hip pain; Signs/Symptoms:r hip ppain fall. COMPARISON: None. ACCESSION NUMBER(S): [id number]; [id number] ORDERING CLINICIAN: KATHERINE POTTS FINDINGS: There is [...] Clement Estevez 08/04/2025 3:05 PM Dictation workstation: [id number] CT head wo IV contrast Narrative: Interpreted By: Vinicius Dobbs, STUDY: CT HEAD WO IV CONTRAST; 08/04/2025 8:22 am INDICATION: Signs/Symptoms:fall. COMPARISON: 05/10/2025 ACCESSION NUMBER(S): [id number] ORDERING CLINICIAN: SANTIAGO MENENDEZ TECHNIQUE: Sequential trans axial images were obtained . FINDINGS: INTRACRANIAL: There is cnvr-px-qiamvwmv prominence of the cortical sulci indicating atrophy. Additionally there has been resolution of greater CSF prominence at the right convexity compared to the prior examination probably due to resolution of the hygroma or liquified subdural hematoma. There is moderate ventriculomegaly, again consistent with atrophy. Xnmn-jc-bekfjoug decreased attenuation of the periventricular and long [...] Vinicius Dobbs 08/04/2025 9:12 AM Dictation workstation: [id number] CT cervical spine wo IV contrast Narrative: Interpreted By: Henry Kenny, STUDY: CT CERVICAL SPINE WO IV CONTRAST; 08/04/2025 8:22 am INDICATION: Signs/Symptoms:fall. COMPARISON: None. ACCESSION NUMBER(S): [id number] ORDERING CLINICIAN: SANTIAGO MENENDEZ TECHNIQUE: Axial CT [...] right apical pleural thickening. Carotid arterial calcifications yeul-uxaikko-chxh-right. Impression: No evidence for an acute fracture or subluxation of the cervical spine. Mild scoliosis with mild multilevel cervical degenerative change. MACRO: None Signed by: Henry Kenny 08/04/2025 8:39 AM Dictation workstation: [id number] XR chest 1 view Narrative: STUDY: Chest Radiograph; 08/04/2025, 0751 INDICATION: Weakness. COMPARISON: XR chest 05/10/2025, CT chest 05/10/2025, XR chest 11/15/2023. ACCESSION NUMBER(S): [id number] ORDERING CLINICIAN: SANTIAGO MENENDEZ TECHNIQUE: Frontal chest [...] 08/04/25 === CT head wo IV contrast [[id number]] 08/04/2025 Status: Normal Stable appearance of mixed density right parafalcine subdural hematoma without significant mass effect or midline shift. No new or enlarging intracranial hemorrhage. I personally reviewed the images/study and I agree with the findings as stated by resident physician Ramiro Weber MD. This study was interpreted at [facility], [place], [place]. MACRO: None Signed by: Gracie Carpenter 08/04/2025 4:05 PM Dictation workstation: [id number] No results found for this or any previous visit. DATA: EKG: QTC Encounter Date: 08/04/25 ECG 12 lead Result Value Ventricular Rate 69 Atrial Rate 69 AZ Interval 166 QRS Duration 92 QT Interval 404 QTC Calculation(Bazett) 432 P Stella 104 R Stella 11 T Stella 26 QRS Count 11 Q Onset 224 [...] on nectar thick liquids at home Plan: MINT MACHINE OPERATOR consult to see if diet can be advanced Care Transitions: -Recommended level for discharge: pending PT/Ot assess -Home going considerations: fall precautions -Primary care physician: Dr Christopher Barrera Goals of Care: -Health care power of claims attorney: -Living will: yes Code status: DNR [...] over the weekend, please page Geriatrics pager [phone] Consult Billing Time Prep time on date [...] tablet 81 mg 81 mg oral Daily aGuri Ortiz PA-C cholecalciferol (Vitamin D-3) tablet 125 [...] 2.5 mg 2.5 mg oral q6h PRN Garui Ortiz PA-C oxyCODONE (Roxicodone) immediate release tablet [...] MD Consult ordered by: DO Fawn Ramos "Andres" is being seen today for a consult [...] wo head strike. He last took ASA 1013 AM. Patient denied any weakness, numbness, vision [...] output data in the 24 hours ending 08/04/25 1739 VENT SETTINGS: Blood pressure 132/66, pulse 54, resp. rate 10, height 1.676 m (5' 6"), weight 65.3 kg (144 lb), SpO2 96%. No intake/output data recorded. No intake/output data recorded. Output by Drain (mL) 08/02/25 0700 - 08/02/25185808/02/250 - 08/03/25 0659 08/03/25 0700 - 08/03/25 1859 08/03/251899 - 08/04/25 0659 08/04/25 07 - 08/04/25 1739 Requested LDAs do not have output data [...] Weber MD. This study was interpreted at [place], [place]. MACRO: None Signed by: Gracie Carpenter 08/04/2025 4:05 PM Dictation workstation: [id number] CT chest abdomen pelvis w IV contrast [...] as stated. This study was interpreted at [place], [place]. MACRO: None Signed by: Radha Raza 08/04/2025 5:23 PM Dictation workstation: [id number] CT lumbar spine retrospective reconstruction protocol Final [...] Weber MD. This study was interpreted at [place], [place]. MACRO: None. Signed by: Gracie Carpenter 08/04/2025 4:13 PM Dictation workstation: [id number] CT thoracic spine retrospective reconstruction protocol Final [...] Weber MD. This study was interpreted at [facility], [place], [place]. MACRO: None. Signed by: Gracie Carpenter 08/04/2025 4:13 PM Dictation workstation: [id number] XR hip right with pelvis when performed 2 or 3 views Final Result Mildly displaced fractures through the right superior and right inferior pubic rami with callus formation suggestive of subacute chronicity. Remote left inferior pubic ramus as well. No other fracture seen about the right hip. Severe right hip osteoarthritis. MACRO: None Signed by: Clement Estevez 08/04/2025 3:05 PM Dictation workstation: [id number] XR femur right 2+ views Final Result Mildly displaced fractures through the right superior and right inferior pubic rami with callus formation suggestive of subacute chronicity. Remote left inferior pubic ramus as well. No other fracture seen about the right hip. Severe right hip osteoarthritis. MACRO: None Signed by: Clement Estevez 08/04/2025 3:05 PM Dictation workstation: [id number] Assessment/Plan Assessment: Fawn Cameron 89 y.o. male [...] concerns Enmanuel Melgoza MD Department of Neurosurgery [facility] Note authored by resident on neurosurgery team, with all questions [place] [phone] Plan not finalized until note signed by [...] 3:58 PM EDT documented in this encounter [facility] Work Phone: 08-06-2025 Note 1. Please refer to d etailed swallow study evaluation by speech pathologist. 2. No acute radiographic osseous abnormality. MACRO: None Signed by: Terry Ireland 08/06/2025 2:53 PM Dictation workstation: [id number] 08-06-2025 Note Formatting of this n [...] Directive/Living Will: Yes Health Care Power of Inspector Wire Products: Yes Other: N/A Communication of Medical Status/Prognosis: Discussed swallow study results with patient that aspiration with all consistencies was seen. [place] to be due to anatomical deficits and [...] RDN, LD at 08/06/2025 3:18 PM EDT [facility] Work Phone: 08-06-2025 Plan of care note The patient's goals for the shift include The clinical goals for the shift include free from injury [facility] Work Phone: 08-06-2025 Nurse Note Orthostatic Vitals Lying B/P- 163/82 HR- 66 O2- 94% Sitting B/P- 152/83 HR- 70 O2- 94% Standing B/P- 136/86 HR- 86 O2- 93% [facility] Work Phone: 08-06-2025 Procedure note Associated Ord er(s): 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 SWALLOW EVALUATION Speech-Language Pathology Inpatient [...] liquids via straw, and purees were given. MINT MACHINE OPERATOR: FLAVIA Humphrey Contact info: [employer] Reason for Referral: C/f aspiration/oropharyngeal dysphagia Patient Hx: Fawn Brown" is a 89 y.o. 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 Respiratory Status: Room air Current diet: Easy to Chew Solids and Mildly ([place]) Thick Liquids; recommended at nursing facility, per [...] risk for aspiration regardless of any further MINT MACHINE OPERATOR intervention). MD aware. MINT MACHINE OPERATOR PLAN: Skilled MINT MACHINE OPERATOR Services: Skilled MINT MACHINE OPERATOR intervention for dysphagia is warranted. MINT MACHINE OPERATOR Frequency: pending GOC discussions Discussed POC: patient [...] given on all accounts. Treatment Provided Today: MINT MACHINE OPERATOR provided extensive education and training to pt/pt [...] further evaluation by medical specialists, as applicable. MINT MACHINE OPERATOR Impressions with Severity Rating: Pt awake/alert, consistently cooperative/able to follow commands, and responded appropriately to conversation/questions by MINT MACHINE OPERATOR. A&Ox4. Oral mechanism examination WNL. Of note, pt underwent initial MBSS during previous admission in April w/ recommendation of NPO w/ frequent aggressive oral care. GLOVE MAKER + pt report subsequent PEG tube placement at OSH and eventual advancement of diet to Easy to Chew Solids & Mildly ([place]) Thick Liquids per MINT MACHINE OPERATOR at nursing facility; unable to locate documentation [...] risk for aspiration regardless of any further MINT MACHINE OPERATOR intervention. Therefore, question need for GOC discussions re: accepting the risks of aspiration w/ continued oral intake. MD aware. Extensive education/treatment provided to pt following completion of study re: results/recommendations and dysphagia POC. Pt verbalized understanding. Rosenbek's Penetration Aspiration Scale Thin Liquids: 7. OVERT ASPIRATION, material is not cleared - contrast passes glottis, visible residue, W/pt response During the Swallow [place] Thick Liquids: 5. DEEP PENETRATION with HIGH ASPIRATION risk - contrast contacts vocal cords, visible residue During the Swallow Honey Thick Liquids: 8. SILENT ASPIRATION - contrast passes glottis, visible residue, NO pt response, After the Swallow Puree: 8. SILENT ASPIRATION - contrast passes glottis, visible residue, NO pt response] During the Swallow [facility] Work Phone: 08-06-2025 Procedure note Associated Ord er(s): 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 SWALLOW EVALUATION Speech-Language Pathology Inpatient [...] liquids via straw, and purees were given. MINT MACHINE OPERATOR: FLAVIA Humphrey Contact info: [employer] Reason for Referral: C/f aspiration/oropharyngeal dysphagia Patient Hx: Fawn Brown" is a 89 y.o. 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 Respiratory Status: Room air Current diet: Easy to Chew Solids and Mildly ([place]) Thick Liquids; recommended at nursing facility, per [...] risk for aspiration regardless of any further MINT MACHINE OPERATOR intervention). MD aware. MINT MACHINE OPERATOR PLAN: Skilled MINT MACHINE OPERATOR Services: Skilled MINT MACHINE OPERATOR intervention for dysphagia is warranted. MINT MACHINE OPERATOR Frequency: pending GOC discussions Discussed POC: patient [...] given on all accounts. Treatment Provided Today: MINT MACHINE OPERATOR provided extensive education and training to pt/pt [...] further evaluation by medical specialists, as applicable. MINT MACHINE OPERATOR Impressions with Severity Rating: Pt awake/alert, consistently cooperative/able to follow commands, and responded appropriately to conversation/questions by MINT MACHINE OPERATOR. A&Ox4. Oral mechanism examination WNL. Of note, pt underwent initial MBSS during previous admission in April w/ recommendation of NPO w/ frequent aggressive oral care. GLOVE MAKER + pt report subsequent PEG tube placement at OSH and eventual advancement of diet to Easy to Chew Solids & Mildly ([place]) Thick Liquids per MINT MACHINE OPERATOR at nursing facility; unable to locate documentation [...] risk for aspiration regardless of any further MINT MACHINE OPERATOR intervention. Therefore, question need for GOC discussions re: accepting the risks of aspiration w/ continued oral intake. MD aware. Extensive education/treatment provided to pt following completion of study re: results/recommendations and dysphagia POC. Pt verbalized understanding. Rosenbek's Penetration Aspiration Scale Thin Liquids: 7. OVERT ASPIRATION, material is not cleared - contrast passes glottis, visible residue, W/pt response During the Swallow [place] Thick Liquids: 5. DEEP PENETRATION with HIGH ASPIRATION risk - contrast contacts vocal cords, visible residue During the Swallow Honey Thick Liquids: 8. SILENT ASPIRATION - contrast passes glottis, visible residue, NO pt response, After the Swallow Puree: 8. SILENT ASPIRATION - contrast passes glottis, visible residue, NO pt response] During the Swallow documented in this encounter [facility] Work Phone: 08-06-2025 Plan of care note The patient's goals for the shift include free from injury The clinical goals for the shift include free from injury [facility] Work Phone: 08-05-2025 Nurse Note Orthostatic Vitals- post bolus Lying B/P- 146/70 HR- 59 O2- 97% Sitting B/P- 135/73 HR- 68 O2- 97% Standing B/P- 116/56 HR- 73 O2- 97% [facility] Work Phone: 08-05-2025 Plan of care note The patient's goals for the shift include The clinical goals for the shift include Patient will be HDS [facility] Work Phone: 08-05-2025 Nurse Note Orthostatic Vitals Lying B/P- 119/70 HR- 64 O2- 92% Sitting B/P- 91/53 HR- 70 O2-94% Standing B/P- 84/55 HR-83 O2- 90% [facility] Work Phone: 08-05-2025 Consult note Associated Order (s): Inpatient consult to Geriatric Medicine Images from the original note were not included. Inpatient consult to Geriatric Medicine Consult performed by: Selam Jerry MD Consult ordered by: Elaine Madrigal APRN-CAMI Primary Team: Trauma Admit Date: 08/04/2025 Emergency Contact: Extended Emergency Contact Information Primary Emergency Contact: Diya Cameron Address: [address] [facility] [place] Relation: Spouse Typewriter Repairer needed? No Reason For Consult: medical management and med review History Of Present Illness: Fawn Cameron "Andres" is a 89 y.o. male w/ h/o [...] home from SNF. Called EMS. Presented to [facility] ED. Vitals stable. EKG no ischemic changes. CT showing new R parafalcine subdural hematoma. Transfer to [facility]. At [facility] vitals stable. Admitted to trauma. NSGY consulted - BP goal <160, resume ASA 08/07. Last Asa 08/03. Started on Keppra 500 [...] admitted 05/20 after fall while volunteering at [facility] and sustained injuries to the R orbital [...] scan outpt as hx of alendronate. At [facility] and then went home end of Jun Due to dysphagia liquids and solids, PEG placed 05/26 at [facility] Weight 65 kg was 66 kg in [...] side. 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 Highest Level of Education: Post-Graduate Degree Community Resources: Home PT/OT [facility] : No Current living environment: 2 story but [...] Directive/Living Will: Yes Health Care Power of Inspector Wire Products: Yes Other: N/A Code Status: DNR Confusion [...] Component Value Date TSH 4.88 (H) 05/12/2025 [id number] 283 05/12/2025 VITD25 18 (L) 05/12/2025 Results [...] w IV contrast Narrative: Interpreted By: Radha Raza, and Chaparro Fernandez STUDY: CT CHEST ABDOMEN PELVIS W IV CONTRAST; 08/04/2025 3:18 pm INDICATION: Signs/Symptoms:fall, SDH new, now new R hip pain COMPARISON: CT chest abdomen pelvis 05/10/2025 ACCESSION NUMBER(S): [id number] ORDERING CLINICIAN: KATHERINE TAHIRA TECHNIQUE: CT of the chest, abdomen, and [...] as stated. This study was interpreted at [place], [place]. MACRO: None Signed by: Radha Raza 08/04/2025 5:23 PM Dictation workstation: [id number] CT lumbar spine retrospective reconstruction protocol, CT thoracic spine retrospective reconstruction protocol Narrative: Interpreted By: Gracie Carpenter and Gus Rubio STUDY: CT THORACIC SPINE RETROSPECTIVE RECONSTRUCTION PROTOCOL; CT LUMBAR SPINE RETROSPECTIVE RECONSTRUCTION PROTOCOL; 08/04/2025 3:18 pm INDICATION: Signs/Symptoms:fall. COMPARISON: CT thoracic and lumbar spine 05/10/2025 ACCESSION NUMBER(S): [id number]; [id number] ORDERING CLINICIAN: KATHERINE POTTS TECHNIQUE: Multiplanar reformatted [...] Weber MD. This study was interpreted at [place], [place]. MACRO: None. Signed by: Gracie Carpenter 08/04/2025 4:13 PM Dictation workstation: [id number] ECG 12 lead Normal sinus rhythm Poor R-wave progression ; consider anterior infarct, lead placement, or normal variant Abnormal ECG When compared with ECG of 30-JUL-2025 15:00, (unconfirmed) Right bundle branch block is no longer Present CT head wo IV contrast Narrative: Interpreted By: Gracie Carpenter and Liu Scott STUDY: CT HEAD WO IV CONTRAST; 08/04/2025 3:18 pm INDICATION: Signs/Symptoms:SDH stability scan. COMPARISON: CT head 08/04/[address] head 05/10/2025 ACCESSION NUMBER(S): [id number] ORDERING CLINICIAN: KATHERINE POTTS TECHNIQUE: Noncontrast axial [...] Weber MD. This study was interpreted at [place], [place]. MACRO: None Signed by: Gracie Carpenter 08/04/2025 4:05 PM Dictation workstation: [id number] XR hip right with pelvis when performed 2 or 3 views, XR femur right 2+ views Narrative: Interpreted By: Clement Estevez, STUDY: XR FEMUR RIGHT 2+ VIEWS; XR HIP RIGHT WITH PELVIS WHEN PERFORMED 2 OR 3 VIEWS; ; 08/04/2025 3:00 pm INDICATION: Signs/Symptoms:fall r hip pain; Signs/Symptoms:r hip ppain fall. COMPARISON: None. ACCESSION NUMBER(S): [id number]; [id number] ORDERING CLINICIAN: KATHERINE POTTS FINDINGS: There is [...] right hip osteoarthritis. MACRO: None Signed by: Clemetn Estevez 08/04/2025 3:05 PM Dictation workstation: [id number] CT head wo IV contrast Narrative: Interpreted By: Vinicius Dobbs, STUDY: CT HEAD WO IV CONTRAST; 08/04/2025 8:22 am INDICATION: Signs/Symptoms:fall. COMPARISON: 05/10/2025 ACCESSION NUMBER(S): [id number] ORDERING CLINICIAN: SANTIAGO MENENDEZ TECHNIQUE: Sequential trans axial images were obtained . FINDINGS: INTRACRANIAL: There is cddm-gz-ugllnmmg prominence of the cortical sulci indicating atrophy. Additionally there has been resolution of greater CSF prominence at the right convexity compared to the prior examination probably due to resolution of the hygroma or liquified subdural hematoma. There is moderate ventriculomegaly, again consistent with atrophy. Mzca-hv-cwmnthyi decreased attenuation of the periventricular and long [...] Vinicius Dobbs 08/04/2025 9:12 AM Dictation workstation: [id number] CT cervical spine wo IV contrast Narrative: Interpreted By: Henry Kenny, STUDY: CT CERVICAL SPINE WO IV CONTRAST; 08/04/2025 8:22 am INDICATION: Signs/Symptoms:fall. COMPARISON: None. ACCESSION NUMBER(S): [id number] ORDERING CLINICIAN: SANTIAGO MENENDEZ TECHNIQUE: Axial CT [...] right apical pleural thickening. Carotid arterial calcifications dyda-odvblyv-onwp-right. Impression: No evidence for an acute fracture or subluxation of the cervical spine. Mild scoliosis with mild multilevel cervical degenerative change. MACRO: None Signed by: Henry Kenny 08/04/2025 8:39 AM Dictation workstation: [id number] XR chest 1 view Narrative: STUDY: Chest Radiograph; 08/04/2025, 0751 INDICATION: Weakness. COMPARISON: XR chest 05/10/2025, CT chest 05/10/2025, XR chest 11/15/2023. ACCESSION NUMBER(S): [id number] ORDERING CLINICIAN: SANTIAGO MENENDEZ TECHNIQUE: Frontal chest [...] 08/04/25 === CT head wo IV contrast [[id number]] 08/04/2025 Status: Normal Stable appearance of mixed density right parafalcine subdural hematoma without significant mass effect or midline shift. No new or enlarging intracranial hemorrhage. I personally reviewed the images/study and I agree with the findings as stated by resident physician Ramiro Weber MD. This study was interpreted at [facility], [place], [place]. MACRO: None Signed by: Gracie Carpenter 08/04/2025 4:05 PM Dictation workstation: [id number] No results found for this or any previous visit. DATA: EKG: QTC Encounter Date: 08/04/25 ECG 12 lead Result Value Ventricular Rate 69 Atrial Rate 69 AZ Interval 166 QRS Duration 92 QT Interval 404 QTC Calculation(Bazett) 432 P Stella 104 R Stella 11 T Stella 26 QRS Count 11 Q Onset 224 [...] on nectar thick liquids at home Plan: MINT MACHINE OPERATOR consult to see if diet can be advanced Care Transitions: -Recommended level for discharge: pending PT/Ot assess -Home going considerations: fall precautions -Primary care physician: Dr Don Barrera Goals of Care: -Health care power of claims attorney: -Living will: yes Code status: DNR [...] over the weekend, please page Geriatrics pager [phone] Consult Billing Time Prep time on date [...] 100 mL 500 mg intravenous BID Katherine Potts, DO Stopped at 08/04/252147 metoprolol tartrate (Lopressor) [...] VASECTOMY 40 years ago WISDOM TOOTH EXTRACTION [facility] Work Phone: 08-04-2025 Plan of care note The patient's goals for the shift include Patient will be HDS The clinical goals for the shift include Patient will be HDS [facility] Work Phone: 08-04-2025 Hospital Note Formatting of t his note might be different from the original. 89M with history of TIA, CAD, AAA, HTN, HLD, GERD, dysphagia s/p PEG, RA, vestibular migraines, and BPH transferred [facility] on 08/04 after fall when getting out [...] medically ready for transfer to SNF. ,,,, [facility] Work Phone: 08-04-2025 Consult note Associated Order (s): Inpatient consult to Neurosurgery Images from the original note were not included. NEUROSURGERY CONSULT NOTE Date of Service: 08/04/2025 Attending Provider: Kelsey Patel MD Reason for Consultation: Inpatient consult to Neurosurgery Consult performed by: Enmanuel Melgoza MD Consult ordered by: DO Fawn Ramos "Andres" is being seen today for a consult [...] wo head strike. He last took ASA 10/13 AM. Patient denied any weakness, numbness, vision [...] output data in the 24 hours ending 08/04/25 1739 VENT SETTINGS: Blood pressure 132/66, pulse 54, resp. rate 10, height 1.676 m (5' 6"), weight 65.3 kg (144 lb), SpO2 96%. No intake/output data recorded. No intake/output data recorded. Output by Drain (mL) 08/02/25 0700 - 08/02/25185808/02/251899 - 08/03/25 0659 08/03/25699 - 08/03/25 18508/03/251899 - 08/04/25 0659 08/04/25 07 - 08/04/25 1739 Requested LDAs do not have output data [...] Weber MD. This study was interpreted at [place], [place]. MACRO: None Signed by: Gracie Carpenter 08/04/2025 4:05 PM Dictation workstation: [id number] CT chest abdomen pelvis w IV contrast [...] as stated. This study was interpreted at [place], [place]. MACRO: None Signed by: Radha Raza 08/04/2025 5:23 PM Dictation workstation: [id number] CT lumbar spine retrospective reconstruction protocol Final [...] Weber MD. This study was interpreted at [place], [place]. MACRO: None. Signed by: Gracie Carpenter 08/04/2025 4:13 PM Dictation workstation: [id number] CT thoracic spine retrospective reconstruction protocol Final [...] Weber MD. This study was interpreted at [place], [place]. MACRO: None. Signed by: Gracie Carpenter 08/04/2025 4:13 PM Dictation workstation: [id number] XR hip right with pelvis when performed 2 or 3 views Final Result Mildly displaced fractures through the right superior and right inferior pubic rami with callus formation suggestive of subacute chronicity. Remote left inferior pubic ramus as well. No other fracture seen about the right hip. Severe right hip osteoarthritis. MACRO: None Signed by: Clement Estevez 08/04/2025 3:05 PM Dictation workstation: [id number] XR femur right 2+ views Final Result Mildly displaced fractures through the right superior and right inferior pubic rami with callus formation suggestive of subacute chronicity. Remote left inferior pubic ramus as well. No other fracture seen about the right hip. Severe right hip osteoarthritis. MACRO: None Signed by: Clement Estevez 08/04/2025 3:05 PM Dictation workstation: [id number] Assessment/Plan Assessment: Fawn Cameron 89 y.o. male [...] concerns Enmanuel Melgoza MD Department of Neurosurgery [facility] Note authored by resident on neurosurgery team, with all questions [place] [phone] Plan not finalized until note signed by [...] Navarro MD at 08/05/2025 3:58 PM EDT [facility] Work Phone: 08-04-2025 History and physical note [facility] TRAUMA SERVICE - HISTORY AND PHYSICAL / CONSULT Patient Name: Fawn Cameron Admit Date: [id number] : 1935 AGE: 89 y.o. GENDER: male ======== MECHANISM OF INJURY / CHIEF COMPLAINT: 89 yo M s/p fall this am when getting out of bed. Pt. [place] weak and legs gave out when getting gup this am. Went to [facility], CT head and cervical spine obtained. Injuries: right parafalcine SDH, resolution of previous right SAH. Transferred to [facility] for further trauma and NSGY eval. Recent admission to trauma service in April. 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 Patient was found to have right orbital [...] Facility Name (N/A for scene EMR run): [facility] ED INJURIES: right parafalcine SDH OTHER MEDICAL [...] a peg tube was placed. Current diet [place] thick liquids and easy to chew. Admit to telemetry floor SCDs, hold lvx in setting of acute head bleed Geriatrics consult IS Repeat lab in am Strict I/Os Resume home medications as appropriate Consultants notified (specialty, provider name, time): NSGY consulted by ED Pt. And plan discussed with Dr. Mark. Elaine Madrigal, FOOD BROKER-ARE[employer] FORESTER Trauma Surgery [id number] Total face to face time spent with [...] mouth 2 times a day. 08/04/25 Historical ProviderMD ALLERGIES: reviewed RX Allergies[5] REVIEW OF SYSTEMS: [...] the right; 2+ on the left. Disability [place] Coma Score Eye:4 Verbal:5 Motor:6 15 Pupils Right Pupil: round and reactive Left Pupil: round and reactive Motor Strength Dredge Pumper strength: 5/5 on the right 5/5 on [...] Name Age of Onset Heart murmur Mother [place] Obrecht Hyperlipidemia Mother [place] Obrecht Arthritis Mother [place] Obrecht Hearing loss Mother [place] Obrecht Hypertension Mother [place] Obrecht Vision loss Mother [place] Obrecht Other (CARDIAC DISORDER) Father Pneumonia Father Suicide Attempts Brother Heath Stroke Father Hearing loss Father 70 - 79 [4] Social History Tobacco Use Smoking Status Former Current packs/day: 0.00 Types: Cigarettes, Pipe Quit date: 04/22/1962 Years since quittin.3 Passive exposure: Past Smokeless Tobacco Never [5] No Known Allergies Cosigned by Vijay Mark MD at 08/04/2025 7:43 PM EDT [facility] Work Phone: 08-04-2025 History and physical note [facility] TRAUMA SERVICE - HISTORY AND PHYSICAL / CONSULT Patient Name: Fawn Cameron Admit Date: [id number] : 1935 AGE: 89 y.o. GENDER: male ======== MECHANISM OF INJURY / CHIEF COMPLAINT: 89 yo M s/p fall this am when getting out of bed. Pt. [place] weak and legs gave out when getting gup this am. Went to [facility], CT head and cervical spine obtained. Injuries: right parafalcine SDH, resolution of previous right SAH. Transferred to [facility] for further trauma and NSGY eval. Recent admission to trauma service in April. 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 Patient was found to have right orbital [...] Facility Name (N/A for scene EMR run): [facility] ED INJURIES: right parafalcine SDH OTHER MEDICAL [...] a peg tube was placed. Current diet [place] thick liquids and easy to chew. Admit to telemetry floor SCDs, hold lvx in setting of acute head bleed Geriatrics consult IS Repeat lab in am Strict I/Os Resume home medications as appropriate Consultants notified (specialty, provider name, time): NSGY consulted by ED Pt. And plan discussed with Dr. Mark. Elaine Madrigal, [facility] BR[employer] Trauma Surgery [id number] Total face to face time spent with [...] by mouth once daily. 07/31/25 07/31/26 Don aBrrera MD cholecalciferol (Vitamin D-3) 125 mcg (5,000 [...] the right; 2+ on the left. Disability Vanessa Coma Score Eye:4 Verbal:5 Motor:6 15 Pupils Right Pupil: round and reactive Left Pupil: round and reactive Motor Strength Dredge Pumper strength: 5/5 on the right 5/5 on [...] Name Age of Onset Heart murmur Mother [place] Obrecht Hyperlipidemia Mother [place] Obrecht Arthritis Mother [place] Obrecht Hearing loss Mother [place] Obrecht Hypertension Mother [place] Obrecht Vision loss Mother [place] Obrecht Other (CARDIAC DISORDER) Father Pneumonia Father Suicide Attempts Brother Heath Stroke Father Hearing loss Father 70 - 79 [4] Social History Tobacco Use Smoking Status Former Current packs/day: 0.00 Types: Cigarettes, Pipe Quit date: 04/22/1962 Years since quittin.3 Passive exposure: Past Smokeless Tobacco Never [5] No Known Allergies Cosigned by Vijay Mark MD at 08/04/2025 7:43 PM EDT documented in this encounter [facility] Work Phone: 08-04-2025 Emergency department Triage note Pt arrives to the ED as a transfer from [facility] following fall at at home. Fell backwards while ambulating with walker, hit a wall and then fell to the ground. +headstrike, denies LOC, denies anticoagulation use. Pt reports being more weak since returning home from SNF- recovering from pelvic fracture and ICH. Pt arrives c/o headache and right groin pain on arrival to [facility] ED. A&Ox4. [facility] Work Phone: 08-04-2025 Emergency department Note Pt arrives to the ED as a transfer from [facility] following fall at at home. Fell backwards while ambulating with walker, hit a wall and then fell to the ground. +headstrike, denies LOC, denies anticoagulation use. Pt reports being more weak since returning home from SNF- recovering from pelvic fracture and ICH. Pt arrives c/o headache and right groin pain on arrival to [facility] ED. A&Ox4. History of Present Illness History [...] parafalcine subdural hematoma. Patient was transferred to [facility] for trauma and neurosurgery valuation. Patient recently [...] further care. ED Course: Diagnoses as of 08/04/25 180 Head injury, initial encounter Independent Result Review [...] the documented findings. documented in this encounter [facility] Work Phone: 08-04-2025 Physician Emergency department [...] parafalcine subdural hematoma. Patient was transferred to [facility] for trauma and neurosurgery valuation. Patient recently [...] note and agree with the documented findings. [facility] Work Phone: 08-04-2025 Physician Emergency department [...] History provided by: Patient and EMS personnel plant custodian used: No Patient History Medical History[1] Surgical [...] ER attending and the trauma attending at [facility] where the patient was just recently discharged [...] Name Age of Onset Heart murmur Mother [place] Obrecht Hyperlipidemia Mother [place] Obrecht Arthritis Mother [place] Obrecht Hearing loss Mother [place] Obrecht Hypertension Mother [place] Obrecht Vision loss Mother [place] Obrecht Other (CARDIAC DISORDER) Father Pneumonia Father [...] use: Never Santiago Menendez DO 08/04/25 1050 [facility] Work Phone: 08-04-2025 Emergency department Note [...] History provided by: Patient and EMS personnel plant custodian used: No Patient History Medical History[1] Surgical [...] ER attending and the trauma attending at [facility] where the patient was just recently discharged [...] Name Age of Onset Heart murmur Mother [place] Obrecht Hyperlipidemia Mother [place] Obrecht Arthritis Mother [place] Obrecht Hearing loss Mother [place] Obrecht Hypertension Mother [place] Obrecht Vision loss Mother [place] Obrecht Other (CARDIAC DISORDER) Father Pneumonia Father [...] DO 08/04/25 1050 documented in this encounter [facility] Work Phone: 07-31-2025 Evaluation + Plan note Associated Problem(s): Hypertension Orders: Follow Up In Primary Care - Established Follow Up In Primary Care - Established; Future [facility] Work Phone: 07-31-2025 Evaluation + Plan note Associated Problem(s): 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 Orders: Follow Up In Primary Care [facility] omeprazole (PriLOSEC) [address] capsule; Take 1 capsule (40 mg) by mouth once daily in the morning. Take before meals. Follow Up In Primary Care - Established; Future [facility] Work Phone: 07-31-2025 Evaluation + Plan note Associated Problem(s): Migraine with visual aura Orders: amitriptyline (Elavil) 10 mg tablet; Take 1 tablet (10 mg) by mouth once daily at bedtime. Follow Up In Primary Care - [facility]; Future [facility] Work Phone: 07-31-2025 Evaluation + Plan [...] day. Follow Up In Primary Care - [facility]; Future [facility] Work Phone: 07-31-2025 Evaluation + Plan note Associated Problem(s): Fall, initial encounter Continue with home health care and therapies Orders: Follow Up In Primary Care - [facility]; Future [facility] Work Phone: 07-31-2025 Evaluation + Plan note Associated Problem(s): Fracture of orbital roof (Multi) Orders: Follow Up In Primary Care - Established; Future [facility] Work Phone: 07-31-2025 Evaluation + Plan note Associated Problem(s): MARIANGEL (generalized anxiety disorder) Orders: escitalopram (Lexapro) 5 mg tablet; Take 1 tablet (5 mg) by mouth once daily. Follow Up In Primary Care [facility]; Future [facility] Work Phone: 07-31-2025 Evaluation + Plan note Associated Problem(s): Hyperlipidemia Orders: pravastatin (Pravachol) 40 mg tablet; Take 1 tablet (40 mg) by mouth once daily at bedtime. Follow Up In Primary Care - [facility]; Future [facility] Work Phone: 07-31-2025 Evaluation + Plan [...] Up In Primary Care - Established; Future [facility] Work Phone: 07-31-2025 Evaluation + Plan note Associated Problem(s): BPH (benign prostatic hyperplasia) Increasing urination and incontinence at times, unable to take Uroxatrol because he cannot swallow, referred to urology for further evaluation and help. Orders: Follow Up In Primary Care - Established; Future Referral to Urology; Future [facility] Work Phone: 07-31-2025 Evaluation + Plan note Associated Problem(s): Nocturia Orders: Follow Up In Primary Care - Established; Future Referral to Urology; Future [facility] Work Phone: 07-31-2025 History of Present [...] pain. Having some trouble getting ST, has [facility] for PT, and nurse, OT to see [...] Medicine) Don Barrera MD as PCP - [facility] Attributed Provider Daryl Dyson as Loader Magazine Grinder (Case Management) Review of Systems Constitutional: Negative [...] 90/50 Pulse 68 Ht 1.676 m (5' 6") Wt 65.2 kg (143 lb 12.8 oz) [...] Up In Primary Care - [facility] Follow Up In Primary Care - [facility]; Future 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 Orders: Follow Up In Primary Care - [facility] omeprazole (PriLOSEC) [address] capsule; Take 1 capsule (40 mg) by mouth once daily in the morning. Take before meals. Follow Up In Primary Care - [facility]; Future Migraine with visual aura Orders: amitriptyline (Elavil) 10 mg tablet; Take 1 tablet (10 mg) by mouth once daily at bedtime. Follow Up In Primary Care - [facility]; Future Hypertension, unspecified type Blood pressure slightly [...] day. Follow Up In Primary Care - [facility]; Future Fall, initial encounter Continue with home health care and therapies Orders: Follow Up In Primary Care - [facility]; Future Open fracture of roof of right orbit, initial encounter (Multi) Orders: Follow Up In Primary Care - [facility]; Future MARIANGEL (generalized anxiety disorder) Orders: escitalopram (Lexapro) 5 mg tablet; Take 1 tablet (5 mg) by mouth once daily. Follow Up In Primary Care - [facility]; Future Vertigo Orders: folic acid (Folvite) 1 mg tablet; Take 2 tablets (2 mg) by mouth once daily. Follow Up In Primary Care - [facility]; Future Hyperlipidemia, unspecified hyperlipidemia type Orders: pravastatin (Pravachol) 40 mg tablet; Take 1 tablet (40 mg) by mouth once daily at bedtime. Follow Up In Primary Care - [facility]; Future Benign prostatic 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 lower urinary tract symptoms Increasing urination and incontinence at times, unable to take Uroxatrol because he cannot swallow, referred to urology for further evaluation and help. Orders: Follow Up In Primary Care - [facility]; Future Referral to Urology; Future Nocturia Orders: Follow Up In Primary Care - [facility]; Future Referral to Urology; Future Dysphagia, unspecified [...] health care facility documented in this encounter [facility] Work Phone: 07-31-2025 Miscellaneous Notes Associated Problem(s): Hypertension Orders: Follow Up In Primary Care - Established Follow Up In Primary Care - [facility]; Future Associated Problem(s): 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 Orders: Follow Up In Primary Care - Established omeprazole (PriLOSEC) [address] capsule; Take 1 capsule (40 mg) by mouth once daily in the morning. Take before meals. Follow Up In Primary Care [facility]; Future Associated Problem(s): Migraine with visual aura Orders: amitriptyline (Elavil) 10 mg tablet; Take 1 tablet (10 mg) by mouth once daily at bedtime. Follow Up In Primary Care - [facility]; Future Associated Problem(s): Hypertension Blood pressure slightly [...] Primary Care - Established; Future Associated Problem(s): Fracture of orbital roof (Multi) Orders: Follow Up In Primary Care - [facility]; Future Associated Problem(s): MARIANGEL (generalized anxiety disorder) Orders: escitalopram (Lexapro) 5 mg tablet; Take 1 tablet (5 mg) by mouth once daily. Follow Up In Primary Care - [facility]; Future Associated Problem(s): Hyperlipidemia Orders: pravastatin (Pravachol) 40 mg tablet; Take 1 tablet (40 mg) by mouth once daily at bedtime. Follow Up In Primary Care - Established; Future Associated Problem(s): Dysphagia Still waiting to see speech therapist, order modified barium swallow to assess swallowing capability, patient would like to try to get PEG tube removed to soon as he can, is able to maintain soft diet at this point, weight is stable. Orders: [place] modified barium swallow study; Future Follow Up In Primary Care - Established; Future Associated Problem(s): BPH (benign prostatic hyperplasia) Increasing urination and incontinence at times, unable to take Uroxatrol because he cannot swallow, referred to urology for further evaluation and help. Orders: Follow Up In Primary Care - Established; Future Referral to Urology; Future Associated Problem(s): Nocturia Orders: Follow Up In Primary Care - Established; Future Referral to Urology; Future documented in this encounter [facility] Work Phone: 07-17-2025 Evaluation + Plan note Associated Problem(s): Fracture of sacrum (Multi) Getting along now using a wheeled walker, physical therapy working with the patient, denies any pain. [facility] Work Phone: 07-17-2025 Evaluation + Plan note Associated Problem(s): Fall, initial encounter Post fall in April where the patient sustained fractures to the face, subdural and subarachnoid hemorrhage, pelvic fractures, prolonged hospitalization in [place] and transition to [facility] for intensive rehab for over 3 weeks. Patient recently discharged just this past week, has home health care established plan to recheck again in 2 weeks. No areas of open areas on skin. [facility] Work Phone: 07-17-2025 Miscellaneous Notes Associated Problem(s): Fracture of sacrum (Multi) Getting along now using a wheeled walker, physical therapy working with the patient, denies any pain. Associated Problem(s): Fall, initial encounter Post fall in April where the patient sustained fractures to the face, subdural and subarachnoid hemorrhage, pelvic fractures, prolonged hospitalization in [place] and transition to [facility] for intensive rehab for over 3 weeks. [...] hemorrhage. CT scan done last week at [facility] was negative for any new bleeding, bleeding has resolved and fractures appear to be healed. Associated Problem(s): Hypertension Blood pressure stable, amlodipine stopped in the hospital, no complaints. Check electrolyte and renal function documented in this encounter [facility] Work Phone: 07-17-2025 Evaluation + Plan note Associated Problem(s): BPH (benign prostatic hyperplasia) Having some enuresis and urine incontinence at night, Uroxatrol was discontinued in the hospital, will try to restart this medication. [facility] Work Phone: 07-17-2025 Evaluation + Plan [...] feeds before we remove his PEG tube. [facility] Work Phone: 07-17-2025 Evaluation + Plan note Associated Problem(s): Fracture of orbital roof (Multi) Post fall resulting in fractures of the orbit, denies any diplopia, posthospitalization for subdural hematoma and mild arachnoid hemorrhage. CT scan done last week at [facility] was negative for any new bleeding, bleeding has resolved and fractures appear to be healed. [facility] Work Phone: 07-17-2025 Evaluation + Plan note Associated Problem(s): Hypertension Blood pressure stable, amlodipine stopped in the hospital, no complaints. Check electrolyte and renal function [facility] Work Phone: 07-17-2025 History of [...] nonoperatively, patient was in the hospital at [facility] from the to 20 May. He was then transition to inpatient rehab stay at [facility] and was just discharged in the past week. Home yesterday, established C for nurse, PT/OT/ST Has trouble swallowing liquids, [...] 100/60 Pulse 99 Ht 1.676 m (5' 6") Wt 65.7 kg (144 lb 12.8 oz) [...] subarachnoid hemorrhage, pelvic fractures, prolonged hospitalization in [place] and transition to [facility] for intensive rehab for over 3 weeks. [...] hemorrhage. CT scan done last week at [facility] was negative for any new bleeding, bleeding has resolved and fractures appear to be healed. Fracture of sacrum (Multi) S32.10XA Getting along now using a wheeled walker, physical therapy working with the patient, denies any pain. Other Visit Diagnoses Codes Subdural hematoma (Multi) S06.5XAA Relevant Orders CBC and Auto Differential documented in this encounter [facility] Work Phone: 07-14-2025 Radiology Diagnostic study note [facility] Imaging Services [address] [place], [place] [address] Brain/Head without Contrast MR#: [id number] Acct: [id number] Name: FAWN CAMERON Rep #: [id number] : 1935 M 89 From: Maria Luisa Mendieta MD PCP: Dr. Devan Barrera MD Status: RE G CLI Study:Brain/Head without Contrast Date of Exa m: 07/14/25 Exam# [id number] Ordering Dr: Jesus Alberto Wiggins MD PROCEDURE: [...] IMPRESSION: No acute intracranial process. Reading Location: [facility] CC: Dr. Devan Barrera MD; Dr. Jesus Alberto Wiggins MD ~ [place] Worker: Signed [facility] 07-13-2025 Discharge summary Note Date/Time July 13, 2025 3:26pm [facility] Medical Records Department [address] [place] [id number] Discharge Summary 07/10/25 1503 MR#: [id number] Acct: [id number] Name: FAWN CAMERON Rep #:[id number] : 1935 89 From: Jesus Alberto Wiggins MD PCP: Dr. Devan Barrera MD Status:AD M IN Location: [facility] [id number] Providers Date of Admission: 05/20/25 Primary Care Physician: Dr. Devan Barrera MD Consultations 05/20/25 22:28 Consult: Onc/Wound/lining caser Routine Comment: Reason for Consult:: open areas to b/l buttocks upon admit to TCU Comments:: currently ordered kim 05/25/25 06:00 Consult: Gastroenterology Routine Consulting Provider: [facility] Reason for Consult: PEG tube placement [...] Code(s): I25.10 - Atherosclerotic heart disease of [place] coronary artery without angina pectoris (13) TIA [...] __x__ GRD contraindicated. 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 The following psychotropic medication was present [...] __x__ GRD contraindicated. 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 Medications at Discharge Home Medications amitriptyline [...] 40 mg PO DAILY GERD 05/20/25 vitamins A,C,Y-rlry-rzhzhm 4,296 mcg-226 mg-90 mg capsule (Healthy Eyes [...] No specimens collected. Discharge home with 07/16/2025, [facility] PT/OT/ST. Physical Exam Const alert General Appearance: [...] 06/03/25 09:58 SLA (Rec: 06/03/25 09:59 SLA [id number]) Nutrition Malnutrition Evidence of Yes Malnutrition Exists [...] support Status Active Problem Recommendation Dietitian NPO; MINT MACHINE OPERATOR evaluation to assess ability to safely take [...] No Additional Instructions: Discharge home with 07/16/2025, [facility] PT/OT/ST. Please Follow Up With: Joon Khoury MD When: As scheduled. Meaningful Use Info Meaningful Use Meaningful Use Diagnoses (Choose all that apply): None applicable Discharge Plan Admission Admit Date/Time: 05/20/25 18:52 Primary Reason for Your Visit: Debility. Attending Provider: Jesus Alberto Wiggins Chi Primary Care Provider: Devan Barrera Instructions Additional Instructions / Restrictions: Discharge home with 07/16/2025, [facility] PT/OT/ST. Discharge Orders/Prescriptions Prescriptions: New acetaminophen 500 [...] Dr. Jesus Alberto Wiggins MD ~* Signed [facility] Work Phone: 1(212) 153-613009-22-2025 Discharge summary [facility] Medical Records Department [address] [place] [address] Discharge Summary 07/10/25 1503 MR#: [id number] Acct: [id number] Name: FAWN CAMERON Rep #:[id number] : 1935 89 From: Jesus Alberto Wiggins MD PCP: Dr. Devan Barrera MD Status:AD M IN Location: TCU TCU05-1 Providers Date of Admission: 05/20/25 Primary Care Physician: Dr. Devan Barrera MD Consultations 05/20/25 22:28 Consult: Onc/Wound/lining caser Routine Comment: Reason for Consult:: open areas to b/l buttocks upon admit to TCU Comments:: currently ordered kim 05/25/25 06:00 Consult: Gastroenterology Routine Consulting Provider: [facility] Reason for Consult: PEG tube placement [...] Code(s): I25.10 - Atherosclerotic heart disease of [place] coronary artery without angina pectoris (13) TIA [...] __x__ GRD contraindicated. 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 The following psychotropic medication was present [...] __x__ GRD contraindicated. 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 Medications at Discharge Home Medications amitriptyline [...] 40 mg PO DAILY GERD 05/20/25 vitamins A,C,V-kana-tdmuzv 4,296 mcg-226 mg-90 mg capsule (Healthy Eyes [...] No specimens collected. Discharge home with 07/16/2025, [facility] PT/OT/ST. Physical Exam Const alert General Appearance: [...] 06/03/25 09:58 SLA (Rec: 06/03/25 09:59 SLA [id number]) Nutrition Malnutrition Evidence of Yes Malnutrition Exists [...] support Status Active Problem Recommendation Dietitian NPO; MINT MACHINE OPERATOR evaluation to assess ability to safely take [...] No Additional Instructions: Discharge home with 07/16/2025, [facility] PT/OT/ST. Please Follow Up With: Joon Khoury MD When: As scheduled. Meaningful Use Info Meaningful Use Meaningful Use Diagnoses (Choose all that apply): None applicable Discharge Plan Admission Admit Date/Time: 05/20/25 18:52 Primary Reason for Your Visit: Debility. Attending Provider: Jesus Alberto Wiggins Chi Primary Care Provider: Devan Barrera Instructions Additional Instructions / Restrictions: Discharge home with 07/16/2025, [facility] PT/OT/ST. Discharge Orders/Prescriptions Prescriptions: New acetaminophen 500 [...] ambulation in the home and the community. 07/13/251525 Cosigner Signature (if applicable): cc: Dr. Devan Barrera MD; Dr. Jesus Alberto Wiggins MD ~* Signed [facility]09-19-2025 [facility] Medical Records Department [address] [place] [address] Discharge Summary 07/10/25 1503 MR#: [id number] Acct: [id number] Name: FAWN CAMERON Rep #: [id number] : 1935 89 From: Jesus Alberto Wiggins MD PCP: Dr. Devan Barrera MD Status:ADM IN Location: [place] [address] Providers Date of Admission: 05/20/25 Primary Care Physician: Dr. Devan Barrera MD Consultations 05/20/25 22:28 Consult: Onc/Wound/lining caser Routine Comment: Reason for Consult:: open areas [...] Code(s): I25.10 - Atherosclerotic heart disease of [place] coronary artery without angina pectoris (13) TIA [...] GRD contraindicated. Reason contrain (more content not included)...[facility]09-17-[address] [facility] Speech Pathology [address] [place] [address] Modified Barium Swallow Study MR#: [id number] Acct: [id number] Name: FAWN CAMERON Rep #:[id number] : 1935 89 From: Lincoln Coats, [facility]-MINT MACHINE OPERATOR Modified Barium Swallow Patient Information Study Date: 07/07/25 Study Time: 14:00 Direct Billable Minutes: 84 Total Minutes procedure & reportin Diagnosis: Dysphagia R13.10 Referring Physician: Jesus Alberto Wiggins Chi Reason for Referral: Re-assess swallow function and risk for aspiration to determine if patient is safe for further dietadvancement. 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 Injuries:?1. Right orbital [...] opening/duration, and ineffective cued coughs. Admitted to [facility] TCU 05/20/[address], OT, PT prior to discharge home w/ . ?ST evaluation 05/21/2025 recommended NPO. 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 The patient participated in 10 dysphagia therapy sessions w/ oropharyngeal strengthening in junction w/ NMES, as well as thin water trials w/MINT MACHINE OPERATOR and vocal adduction exercises. Repeat MBSS 06/15/2025 revealed moderate-severe oropharyngeal dysphagia and esophageal dysphagia w/ recommendations for NPO, Ok for trials of puree and mildly thick liquids w/ MINT MACHINE OPERATOR only. Recommend tsp bites of puree consistencies w/ use of effortful, multiple swallows. Recommend tsp sips of mildly thick liquids w/ use of effortful, multiple swallow and cough/throat clear and re-swallow w/ each sip. Pt was recommended for GI consult, as well.Per treating MINT MACHINE OPERATOR, the patient has tolerated sips of mildly thick liquids via tsp and cup w/o need for cough and re-swallow; however, pudding trials have been difficult for the patient. He underwent EGD 06/17/2025, which revealed "abnormal esophageal motility, established achalasia. Dilated. Injectedwith botulinum toxin". MINT MACHINE OPERATOR clarified w/ Dr. Ferrara re: site of [...] bolus, reduced cough reflex Penetration-Aspiration Scale Score [place] Thick Liquid via teaspoon: Result: 2= enter airway/above vocal folds/ejected [place] Thick Liquid via small single sip: cup: [...] teaspoon: Result: 2= enter airway/above vocal folds/ejected [place] Thick Liquid via small single sip: cup Trial 2: Result: 2= enter airway/above vocal folds/ejected 1/4 Cookie: Result: 2= enter airway/above vocal folds/ejected Comment: Silent post prandial aspiration, likely of trace residues that remained in the laryngeal vestibule from thin liquid trials. [place] Thick Liquid via small single sip: cup [...] Speech Therapy Services: Yes Comment: Continue per TCU dysphagia POC. Will recommend skilled meal analysis of soft andbite size textures w/ treating MINT MACHINE OPERATOR to consider further diet advancement of solids. Education Completed: 1. Described result of evaluation. and 2. Pt understands evaluation & agrees with goals and treatment plan. Status Active ST Patient: Active Contact Information [facility] Speech Therapy:: Lincoln Jensen M.A. CCC-MINT MACHINE OPERATOR Speech-Language Pathologist [facility] [address] [place] [address] [email or web address] [phone] 07/08/25 0901 WILFRED Verma-MINT MACHINE OPERATOR> Date/Time Lincoln Jensen M.A., CCC-MINT MACHINE OPERATOR Co-Signature Required for all Medicare patients Date/Time Co-Signature CC: ~ [facility]09-10-2025 Progress note Author Jesus Alberto Wiggins [facility] Note Date/Time July 01, 2025 5:20pm [facility] Medical Records Department [address] [place] [address] Progress Note - TCU 06/23/25 1658 MR#: [id number] Acct: [id number] Name: FAWN CAMERON Rep #:[id number] : 1935 89 From: Jesus Alberto Wiggins MD PCP: Dr. Devan Barrera MD Status:AD M IN Location: [place] [address] Subjective Subjective Resident seen, examined. He is [...] 06/03/25 09:58 SLA (Rec: 06/03/25 09:59 SLA [id number]) Nutrition Malnutrition Evidence of Yes Malnutrition Exists [...] support Status Active Problem Recommendation Dietitian NPO; MINT MACHINE OPERATOR evaluation to assess ability to safely take [...] __x__ GRD contraindicated. 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 The following psychotropic medication was present [...] __x__ GRD contraindicated. Reason contraindicated: stable chronic fdc use. 06/23/25 1703 <Electronically signed by Jesus Alberto Wiggins MD> Cosigner Signature (if applicable): CC: ~ Signed ADDENDUM by Dr. Jesus Alberto Wiggins MD on 07/01/25 at 1720 Addendum GERD - Pantoprazole 40mg daily. 07/01/25 1720<Electronically signed by Jesus Alberto Wiggins MD> Cosigner Signature (if applicable): cc: ~* Signed [facility] Work Phone: 1(740) 197-396609-10-[address] [facility] Medical Records Department [address] [place] [address] Progress Note - [facility] 06/23/25 1658 MR#: [id number] Acct: [id number] Name: FAWN CAMERON Rep #:[id number] : 1935 89 From: Jesus Alberto Wiggins MD PCP: Dr. Devan Barrera MD Status:AD M IN Location: [place] [address] Subjective Subjective Resident seen, examined. He is dressed, sitting in chair, no distress. Today, [facility] cleared him for clear liquid diet. He [...] 06/03/25 09:58 SLA (Rec: 06/03/25 09:59 SLA [id number]) Nutrition Malnutrition Evidence of Yes Malnutrition Exists [...] support Status Active Problem Recommendation Dietitian NPO; MINT MACHINE OPERATOR evaluation to assess ability to safely take [...] __x__ GRD contraindicated. 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 The following psychotropic medication was present [...] __x__ GRD contraindicated. 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 06/23/25 1703 Cosigner Signature (if applicable): CC: ~ Signed ADDENDUM by Dr. Jesus Alberto Wiggins MD on 07/01/25 at 1720 Addendum GERD - Pantoprazole 40mg daily. 07/01/25 1720 Cosigner Signature (if applicable): cc: ~* Signed [facility]09-07-2025 Radiology Diagnostic study note [facility] Imaging Services [address] [place] [address] [id number] Abdomen Single View MR#: [id number] Acct: [id number] Name: FAWN CAMERON Rep #: [id number] : 1935 M 89 From: Elenita Stout MD PCP: Dr. Devan Barrera MD Status: AD M IN Study:Abdomen Single View Date of Exam: 06/28/25 Exam# [id number] Ordering Dr: Jesus Alberto Wiggins MD PROCEDURE: [...] limitations and recommendations discussed above. Reading Location: [id number] CC: Dr. Devan Barrera MD; Dr. Jesus Alberto Wiggins MD ~ [place] Worker: Signed [facility]09-03-[address] 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 Injuries:?1. Right orbital [...] opening/duration, and ineffective cued coughs. Admitted to [facility] TCU 05/20/[address], OT, PT prior to discharge home w/ . ?ST evaluation 05/21/2025 recommended NPO. 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 The patient participated in 10 dysphagia therapy sessions w/ oropharyngeal strengthening in junction w/ NMES, as well as thin water trials w/MINT MACHINE OPERATOR and vocal adduction exercises. Repeat MBSS 06/15/2025 revealed moderate-severe oropharyngeal dysphagia and esophageal dysphagia w/ recommendations for NPO, Ok for trials of puree and mildly thick liquids w/ MINT MACHINE OPERATOR only. Recommend tsp bites of puree consistencies w/ use of effortful, multiple swallows. Recommend tsp sips of mildly thick liquids w/ use of effortful, multiple swallow and cough/throat clear and re-swallow w/ each sip. Pt was recommended for GI consult, as well.Per treating MINT MACHINE OPERATOR, the patient has tolerated sips of mildly thick liquids via tsp and cup w/o need for cough and re-swallow; however, pudding trials have been difficult for the patient. He underwent EGD 06/17/2025, which revealed "abnormal esophageal motility, established achalasia. Dilated. Injectedwith botulinum toxin". MINT MACHINE OPERATOR clarified w/ Dr. Ferrara re: site of [...] bolus, reduced cough reflex Penetration-Aspiration Scale Score [place] Thick Liquid via teaspoon: Result: 3= enters airways/above vocal folds/not ejected [place] Thick Liquid via small single sip: cup: Result: 4= enters airway/contacts vocal folds/ejected [place] Thick Liquid via small single sip: cup [...] of barium remaining in the upper esophagus. [place] Thick Liquid via small single sip: cup Effortful swallow Trial 2: Result: 2= enter airway/above vocal folds/ejected Comment: Silent post prandial aspiration, likely of trace residues of previous trial remaining on the vocal folds. [place] Thick Liquid via small single sip: cup [...] previous trial remaining on the vocal folds. [place] Thick Liquid via small single sip: cup [...] w/ oropharyngeal exercise and po trials w/ MINT MACHINE OPERATOR. -Trial puree textures w/ MINT MACHINE OPERATOR w/ use of multiple, hard swallows and alternating bites and sips 1:1 ratio. Monitor respiratory status closely. If tolerating trials and deemed appropriate by treating MINT MACHINE OPERATOR, would consider further diet advancement to purees. Education Completed: 1. Described result of evaluation. and 2. Pt understands evaluation & agrees with goals and treatment plan. Status Active ST Patient: Active Contact Information [facility] Speech Therapy:: Lincoln Jensen M.A. CCC-MINT MACHINE OPERATOR Speech-Language Pathologist [facility] [address] [place] [address] [email or web address] [phone] 06/24/25 Rosy Verma CCC-MINT MACHINE OPERATOR> Date/Time Lincoln Jensen M.A., CCC-MINT MACHINE OPERATOR Co-Signature Required for all Medicare patients Date/Time Co-Signature CC: ~ [facility]08-27-2025 History and physical note Author Stan Ferrara [facility] Note Date/Time June 17, 2025 3: 50pm [facility] Medical Records Department [address] [place] [address] History & Physical Exam 06/17/25 1549 MR#: [id number] Acct: [id number] Name: FAWN CAMERON Rep #:[id number] : 1935 89 From: Stan Ferrara DO PCP: Dr. Devan Barrera MD Status:[facility] Location: [place] [address] HPI - General General Date of Admission: [...] motility, but a full evaluation is warranted. [facility] Medical History Former smoker Wears hearing aid [...] QHS Const ipation 05/20/25 Unknown History vitamins A,C,T-olus-bxydqc 4,296 1 cap PO DAILY Eye Vi [...] Devan Barrera MD; Stan Ferrara DO~ Signed [facility] Work Phone: 1(693) 751-566008-27-2025 Consult note Author Carlos Yang [facility] Note Date/Time June 17, 2025 2: 56pm [facility] Medical Records Department [address] [place] [address] Pre-Anesthesia Evaluation 06/17/25 1456 MR#: [id number] Acct: [id number] Name: FAWN CAMERON Rep #:[id number] : 1935 89 From: Carlos Yang MD PCP: Dr. Devan Barrera MD Status: G [facility] Y Race: C Location: [place] [address] ASA Classification* ASA Classification ASA Classification: 3 [...] 05:06/17/25 Hgb 10.4 g/dL (13.0-16.5) L 06/17/25 05:25 5 Hct 31.2 % (40-54) L 06/17/25 [...] Procedure(s): EGD Anesthesia History Anesthesia History - road inspector: Anesthesia History - road inspector Hx Hospitalization Yes: TCU 06/16/25 15:44 Any [...] take am of surgery PONV PONV - road inspector: PONV - road inspector Female No 06/16/25 15:44 HX of Motion [...] 06/17/25 14:38 Respiratory Assessment Respiratory Assessment - road inspector: Respiratory Tract Infection Hx - road inspector Hx Respiratory Tract Infection No 06/16/25 15:44 STOP Sleep Apnea STOP Sleep Apnea - road inspector: STOP Sleep Apnea - road inspector Hx Hypertension Yes 06/16/25 15:44 Hx Sleep [...] Tobacco Use History Tobacco Use History - road inspector: Tobacco Use History - road inspector Tobacco Use Smoking Status Former smoker 06/16/25 15:44 Hx Tobacco Use No 06/16/25 15:44 Years Smoking Packs Smoked per Day Smoking Cessation Date was No - quit smoking greater 06/16/25 15:44 within the last 15 years than 15 years ago Hx Smoking Cessation Date Hx Smoking Cessation No 06/16/25 15:44 Counseling Hematologic Medial History Hematologic Hx - road inspector: Hematologic Medical Hx - documentation designer Hx of Blood Transfusion No 06/16/25 15:44 [...] confused, unrespo /Reproduction History /Reproductive History - road inspector: /Reproductive Hx- road inspector Hx Now Gestational Age (in weeks): EDC: [...] QHS Const ipation 05/20/25 Unknown History vitamins A,C,G-hllc-jjrdey 4,296 1 cap PO DAILY Eye Vi [...] no additional complaints, except as documented. 06/17/25 3811 <Electronically signed by Carlos Baptiste> Date _ Carlos Yang MD Cosigner Signature: Date CC: ~ Signed [facility] Work Phone: 1(218) 720-141908-27-[address] [facility] Medical Records Department [address] [place] [address] EGD Report MR#: [id number] Acct: [id number] Name: FAWN CAMERON Rep #:[id number] : 1935 89 From: Stan Ferrara DO PCP: Dr. Devan Barrera MD Status:EVA Olivier [facility] Patient Name: Fawn Cameron Procedure Date: 06/17/2025 [...] collected. Recommendation: - Discharge patient to a senior living. - Resume previous diet. - Continue present medications. Procedure Code(s): --- Professional --- 32682, Esophagogastroduodenoscopy, flexible, transoral; with insertion of guide wire followed by passage of dilator(s) through esophagus over guide wire 96032, 59,51, Esophagogastroduodenoscopy, flexible, transoral; with directed submucosal injection(s), any substance CPT copyright 2021 [employer]. All rights reserved. The codes documented in this report are preliminary and upon glue bone drier review may be revised to meet current compliance requirements. Stan Ferrara DO 06/17/2025 4:50:01 PM This report has been signed electronically. Number of Addenda: 0 Note Initiated On: 06/17/2025 3:54 PM 06/17/25 1650 Date _ Stan Ferrara DO Cosigner Signature: Date (if indicated) CC: Dr. Devan Barrera MD; Stan Ferrara DO ~ Date Dictated: 06/17/25 1554 Date Transcribed: [place] Worker: RF Signed [facility]08-27-[address] [facility] Medical Records Department [address] [place] [address] Provation Physician Letter MR#: [id number] Acct: [id number] Name: FAWN CAMERON Rep #:[id number] : 1935 89 From: Stan Ferrara DO PCP: Dr. Devan Barrera MD Status:RE [facility] 06/17/2025Shakira Barrera Re : Upper GI endoscopy procedure for Fawn Cameron Dear [place] This procedure was performed on Tuesday, June 17, 2025. My impressions and recommendations are as follows: Impressions : - Abnormal esophageal motility, established achalasia. Dilated. Injected with botulinum toxin. - Intact gastrostomy with a patent G-tube present. - No gross lesions in the entire examined duodenum. - No specimens collected. Recommendations : - Discharge patient to a senior living. - Resume previous diet. - Continue present medications. My findings are described in the full procedure note, which is enclosed. If I can be of further assistance, please feel free to contact me at . Sincerely, Stan Ferrara DO 06/17/2025 4:50:01 PM This report has been signed electronically. 06/17/25 1650 Date _ Stan Ferrara DO Cosigner Signature: Date (if indicated) CC: Dr. Devan Barrera MD; Stan Ferrara DO ~ Date Dictated: 06/17/25 1554 Date Transcribed: [place] Worker: RF Signed [facility]08-27-[address] [facility] Medical Records Department [address] [place] [address] Anesthesia Postop Eval I 06/17/25 1636 MR#: [id number] Acct: [id number] Name: FAWN CAMERON Rep #:[id number] : 1935 89 From: Karri CANDELARIA PCP: Dr. Devan Barrera MD Status:EVA G ARIA Y Race: C Location: [place] [address] Anesthesia: Postop Eval I Current Vital Signs Temperature: 98.1 F Pulse Rate: 79 Blood Pressure: 110/65 Respiratory Rate: 16 Pulse Ox: 95 Assessment Airway patent: Yes Spontaneous unlabored respirations: Yes nausea: No Vomiting: No Anesthesia Complication: No Fluid Hydration Crystalloid volume administer (ml): 500 Total IV fluid infused: 500 Progress Note Anesthesia document: Postop Eval 1 completed: Yes 06/17/25 1637 PUBLIC WEIGHER> Date _ Karri Lynda PUBLIC WEIGHER Cosigner Signature: Date CC: ~ Signed [facility]08-27-[address] [facility] Medical Records Department [address] [place] [address] History & Physical Exam 06/17/25 1549 MR#: [id number] Acct: [id number] Name: FAWN CAMERON Rep #:[id number] : 1935 89 From: Stan Friend DO PCP: Dr. Devan Barrera MD Status:[facility] Location: [place] [address] HPI - General General Date of Admission: [...] motility, but a full evaluation is warranted. [facility] Medical History Former smoker Wears hearing aid [...] QHS Const ipation 05/20/25 Unknown History vitamins A,C,C-uzrh-hhlojq 4,296 1 cap PO DAILY Eye Vi [...] applicable): CC: Dr. Devan Barrera MD; Stan Ferrara, ~ Signed [facility]08-27-2025 [facility] Medical Records Department [address] [place] [address] History Physical Exam 06/17/25 1549 MR#: [id number] Acct: [id number] Name: FAWN CAMERON Rep #: [id number] : 1935 89 From: Stan Ferrara DO PCP: Dr. Devan Barrera MD Status:[facility] Location: [place] [address] HPI - General General Date of Admission: [...] motility, but a full evaluation is warranted. [facility] Medical History Former smoker Wears hearing aid [...] PO QHS Constipation 05/20 Unknown History vitamins A,C,T-njoi-euzxls 4,296 1 cap PO DAILY Eye Vitamin 5 Unknown History mcg-226 mg-90 mg capsule (Healthy Eyes SuperVision) doxazosin 4 mg tablet (Cardura) 4 mg PO QHS 05/25/25 06/16/25 Hist ory lactose-reduced food-fiber 0.07 See Rx Instructions feeding tube 0 05/25/25 Unknown History gram-1.5 kcal/mL liquid for tube (more content not included)...[facility]08-27-[address] [facility] Medical Records Department [address] [place] [address] Pre-Anesthesia Evaluation 06/17/25 1456 MR#: [id number] Acct: [id number] Name: FAWN CAMERON Rep #:[id number] : 1935 89 From: Carlos Yang MD PCP: Dr. Devan Barrera MD Status:[facility] Y Race: C Location: [place] [address] ASA Classification* ASA Classification ASA Classification: 3 [...] Procedure(s): EGD Anesthesia History Anesthesia History - road inspector: Anesthesia History - road inspector Hx Hospitalization Yes: TCU 06/16/25 15:44 Any [...] take am of surgery PONV PONV - road inspector: PONV - road inspector Female No 06/16/25 15:44 HX of Motion [...] 06/17/25 14:38 Respiratory Assessment Respiratory Assessment - road inspector: Respiratory Tract Infection Hx - road inspector Hx Respiratory Tract Infection No 06/16/25 15:44 STOP Sleep Apnea STOP Sleep Apnea - road inspector: STOP Sleep Apnea - road inspector Hx Hypertension Yes 06/16/25 15:44 Hx Sleep [...] Tobacco Use History Tobacco Use History - road inspector: Tobacco Use History - road inspector Tobacco Use Smoking Status Former smoker 06/16/25 15:44 Hx Tobacco Use No 06/16/25 15:44 Years Smoking Packs Smoked per Day Smoking Cessation Date was No - quit smoking greater 06/16/25 15:44 within the last 15 years than 15 years ago Hx Smoking Cessation Date Hx Smoking Cessation No 06/16/25 15:44 Counseling Hematologic Medial History Hematologic Hx - road inspector: Hematologic Medical Hx - documentation designer Hx of Blood Transfusion No 06/16/25 15:44 [...] confused, unrespo /Reproduction History /Reproductive History - road inspector: /Reproductive Hx- road inspector Hx Now Gestational Age (in weeks): EDC: [...] QHS Const ipation 05/20/25 Unknown History vitamins A,C,Y-ovyg-tdlssl 4,296 1 cap PO DAILY Eye Vi [...] Carlos Andrews Signature: Date CC: ~ Signed [facility]08-25-2025 Consult note Author Stan Ferrara [facility] Note Date/Time June 15, 2025 6: 13pm [facility] Medical Records Department [address] [place] [address] Consultation - GI 06/15/25 1807 MR#: [id number] Acct: [id number] Name: FAWN CAMERON Rep #:[id number] 8 : 1935 89 From: Stan Ferrara DO PCP: Dr. Devan Barrera MD Status:AD M IN Location: [place] [address] HPI Consult Data Date of Consult: 06/15/25 [...] motility, but a full evaluation is warranted. [facility] Medical History Dysphagia Hyperlipidemia Depression BPH (benign [...] QHS Const ipation 05/20/25 Unknown History vitamins A,C,X-uugu-nnzdws 4,296 1 cap PO DAILY Eye Vi [...] 06/03/25 09:58 SLA (Rec: 06/03/25 09:59 SLA [id number]) Nutrition Malnutrition Evidence of Yes Malnutrition Exists [...] support Status Active Problem Recommendation Dietitian NPO; MINT MACHINE OPERATOR evaluation to assess ability to safely take [...] on 06/16/2025. Charges/Coding Visit Charges Inpatient E&M: 97567 SNF Init L2 06/15/251812 <Electronically signed by Stan Ferrara DO> Cosigner Signature (if applicable): CC: Dr. Devan Barrera MD; Dr. Jesus Alberto Wiggins MD~ Signed [facility] Work Phone: 1(889) 493-713908-25-2025 Consult note [facility] Medical Records Department [address] [place] [address] Consultation - GI 06/15/25 180 MR#: [id number] Acct: [id number] Name: FAWN CAMERON Rep #:[id number] 8 : 1935 89 From: Stan Ferrara DO PCP: Dr. Devan Barrera MD Status:AD M IN Location: [place] [address] HPI Consult Data Date of Consult: 06/15/25 [...] motility, but a full evaluation is warranted. [facility] Medical History Dysphagia Hyperlipidemia Depression BPH (benign [...] QHS Const ipation 05/20/25 Unknown History vitamins A,C,W-pmkx-kufvex 4,296 1 cap PO DAILY Eye Vi [...] 06/03/25 09:58 SLA (Rec: 06/03/25 09:59 SLA [id number]) Nutrition Malnutrition Evidence of Yes Malnutrition Exists [...] support Status Active Problem Recommendation Dietitian NPO; MINT MACHINE OPERATOR evaluation to assess ability to safely take [...] on 06/16/2025. Charges/Coding Visit Charges Inpatient E&M: 98410 SNF Init L2 06/15/25 1813 Cosigner Signature (if applicable): CC: Dr. Devan Barrera MD; Dr. Jesus Alberto Wiggins MD~ Signed [facility]08-25-[address] 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 Injuries:?1. Right orbital [...] opening/duration, and ineffective cued coughs. Admitted to [facility] TCU 05/20/[address], OT, PT prior to discharge home w/ . ?ST evaluation 05/21/2025 recommended NPO. 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 He has participatedin 10 dysphagia therapy sessions w/ oropharyngeal strengthening in junction w/ NMES, as well as thin water trials w/MINT MACHINE OPERATOR and vocal adduction exercises. The patient has [...] to mostly clear aspirated and penetrated contrast. [place] Thick Liquid via teaspoon: Result: 3= enters airways/above vocal folds/not ejected [place] Thick Liquid via teaspoon Trial 2: Result: 3= enters airways/above vocal folds/not ejected [place] Thick Liquid via small single sip: cup: Result: 3= enters airways/above vocal folds/not ejected Pudding via teaspoon: Result: 2= enter airway/above vocal folds/ejected Comment: Esophageal screen - Retention throughout the esophagus. [place] Thick Liquid via small single sip: cup Trial 2: Result: 7= enters airways/below vocal folds/not ejected despite effort Comment: Esophageal screen - Liquid wash somewhat cleared pudding retention in the esophagus; however, significant barium pudding retention remained in the middle esophagus after liquid wash. [place] Thick Liquid Trial 3: Result: 5= enters airways/contacts vocal folds/not ejected Comment: Reflexive throat appeared to fully clear penetrated contrast from the vocal folds and laryngeal vestibule. [place] Thick Liquid w/ Cued effortful, multiple swallows and volitional throat zfpar-pra-ld-swallow: Result: 2= enter airway/above vocal folds/ejected Pudding via teaspoon Trial 2: Result: 2= enter airway/above vocal folds/ejected [place] Thick Liquid w/ Cued effortful, multiple swallows and volitional throat yvaai-yeg-ul-swallowTrial 2: Result: 4= enters airway/contacts vocal folds/ejected [...] of puree and mildly thick liquids w/ MINT MACHINE OPERATOR only. Recommend tsp bitesof puree consistencies w/ [...] w/ oropharyngeal exercise and po trials w/ MINT MACHINE OPERATOR. -Oropharyngeal exercise to consider would include Josette, Candis, Effortful,CTAR, and also velopharyngeal exercise. -If good diet tolerance of trials of puree / mildly thick liquids w/ MINT MACHINE OPERATOR, could consider bedside diet advancement to either full mildly thick liquid or puree textures / mildly thick liquids by tsp w/strict aspiration precautions if deemed clinically appropriate by treating MINT MACHINE OPERATOR. Would monitor respiratory status closely. Recommended Referrals: GI Consult (Poor UES opening/duration and esophageal retention of barium) Education Completed: 1. Described result of evaluation. Status Active ST Patient: Active Contact Information [facility] Speech Therapy:: Lincoln Jensen M.A. CCC-MINT MACHINE OPERATOR Speech-Language Pathologist [facility] [address] [place] [address] [email or web address] [phone] 06/15/25 [email or web address] Bayron CCC-MINT MACHINE OPERATOR> Date/Time Lincoln Jensen M.A. CCC-MINT MACHINE OPERATOR Co-Signature Required for all Medicare patients Date/Time Co-Signature CC: ~ [facility]08-18-2025 Radiology Diagnostic study note [facility] Imaging Services [address] [place] [address] Abdomen Single View MR#: [id number] Acct: [id number] Name: FAWN CAMERON Rep #: [id number] 1 : 1935 M 89 From: Michael Brown MD PCP: Dr. Devan Barrera MD Status: AD M IN Study:Abdomen Single View Date of Exam: 06/08/25 Exam# [id number] Ordering Dr: Jesus Alberto Wiggins MD PROCEDURE: [...] acute abnormality. Nonobstructive gas pattern. Reading Location: [id number] CC: Dr. Devan Barrera MD; Dr. Jesus Alberto Wiggins MD ~ Barrow Worker: Signed [facility]08-12-2025 History and physical note Author Jesus Alberto [facility] Note Date/Time June 02, 2025 5: 18pm [facility] Medical Records Department [address] [place] [address] History & Physical Exam 05/20/25 2130 MR#: [id number] Acct: [id number] Name: FAWN CAMERON Rep #:[id number] 5 : 1935 89 From: Jesus Alberto Wiggins MD PCP: Dr. Devan Barrera MD Status:AD M IN [facility] HPI - General General Date of Admission: 05/20/25 Date of Service: 05/20/25 Chief Complaint: Here for rehabilitation. HPI Narrative FAWN CAMERON, is a 89 Male who presents with followin05/10/2025 Admit [facility]. 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 Injuries: 1. [...] extremity for bilateral pubic rami fracture. 05/14/2025 MINT MACHINE OPERATOR recommended NPO. 05/15/2025 No acute events overnight. Dobbhoff tube placed for TF. 05/16/2025 Advance TF to goal. 05/18/2025 No acute events overnight. Dizzy with PT. 05/19/2025 PT/OT/CM for SNF. 05/20/2025 Admit to TCU with debility, here for rehabilitation, strengthening, prior to discharge home with . [facility] Medical History (Updated 05/20/25 @ 21:42 by [...] Const ipation 05/20/25 Unknown H istory vitamins A,C,P-edvn-jeisku 4,296 1 cap PO DAILY Eye Vi [...] (Updated 05/20/25 @ 21:[address] Jesus lAberto Wiggins MD) household members: spouse Smoking Status: [...] __x__ GRD contraindicated. Reason contraindicated: stable chronic fdc use. The following psychotropic medication was present [...] __x__ GRD contraindicated. Reason contraindicated: stable chronic fdc use. 05/20/252158 <Electronically signed by Jesus Alberto Wiggins MD> [...] q6wart, Albuterol 2.5mg neb q2h prn. 05/26/25 171<Electronically signed by Jesus Alberto Wiggins MD> Cosigner Signature (if applicable): cc: Dr. Devan Barrera MD; Dr. Jesus Alberto Wiggins MD ~* Signed ADDENDUM by Dr. Jesus Alberto Wiggins MD on 05/27/25 at 1718 Addendum Rash - Hytone cream topical bid prn. 05/27/25 171<Electronically signed by Jesus Alberto Wiggins MD> Cosigner [...] Dr. Jesus Alberto Wiggins MD ~* Signed [facility] Work Phone: 1(675) 662-260808-12-[address] [facility] Medical Records Department [address] [place] [address] History & Physical Exam 05/20/252129 MR#: [id number] Acct: [id number] Name: FAWN CAMERON Rep #:[id number] 5 : 1935 89 From: Jesus Alberto Wiggins MD PCP: Dr. Devan Barrera MD Status:AD M IN Location: [facility]-1 HPI - General General Date of Admission: 05/20/25 Date of Service: 05/20/25 Chief Complaint: Here for rehabilitation. HPI Narrative FAWN CAMERON, is a 89 Male who presents with followin05/10/2025 Admit [facility]. 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 Injuries: 1. [...] extremity for bilateral pubic rami fracture. 05/14/2025 MINT MACHINE OPERATOR recommended NPO. 05/15/2025 No acute events overnight. Dobbhoff tube placed for TF. 05/16/2025 Advance TF to goal. 05/18/2025 No acute events overnight. Dizzy with PT. 05/19/2025 PT/OT/CM for SNF. 05/20/2025 Admit to TCU with debility, here for rehabilitation, strengthening, prior to discharge home with . [facility] Medical History (Updated 05/20/25 @ 21:42 by [...] Const ipation 05/20/25 Unknown H istory vitamins A,C,C-wgla-jnrjtd 4,296 1 cap PO DAILY Eye Vi [...] __x__ GRD contraindicated. 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 The following psychotropic medication was present [...] __x__ GRD contraindicated. 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 05/20/259 Cosigner Signature (if applicable): CC: [...] 3ml q6wart, Albuterol 2.5mg neb q2h prn. 05/26/251712 Cosigner Signature (if applicable): cc: Dr. Devan [...] Dr. Jesus Alberto Wiggins MD ~* Signed [facility]08-06-2025 Radiology Diagnostic study note [facility] Imaging Services [address] [place] [address] 998131 Chest PA and Lateral MR#: [id number] Acct: [id number] Name: FAWN CAMERON Rep #: [id number] 0 : 1935 M 89 From: Omero Herrera MD PCP: Dr. Devan Barrera MD Status: AD M IN Study:Chest PA and Lateral Date of Exam: 05/27/25 Exam# [id number] Ordering Dr: Jesus Alberto Wiggins MD PROCEDURE: [...] No interval osseous changes noted. Reading Location: [place] [address] CC: Dr. Devan Barrera MD; Dr. Jesus Alberto Wiggins MD ~ Barrow Worker: Signed [facility]08-05-2025 Consult note Author Benigno Bateman [facility] Note Date/Time May 26, 2025 12: 28pm [facility] Medical Records Department [address] [place] [address] Anesthesia Postop Eval II 05/26/25 1226 MR#: [id number] Acct: [id number] Name: FAWN CAMERON Rep #:[id number] 3 : 1935 89 From: Benigno Baptiste PCP: Dr. Devan Barrera MD Status:RE G SDC Y Race: C Location: [place] [address] Anesthesia Postop Eval I Sum Postop Eval Completion status Anesthesia document: Postop Eval 1 completed: Yes Anesthesia Postop Eval I Summary Anesthesia Postop Eval I Summary: Anesthesia Postop Eval I: Assessment Summary 3 Airway patent Yes 05/26/25 08:15 PUBLIC WEIGHER.TNES Spontaneous unlabored Yes 05/26/25 08:15 PUBLIC WEIGHER.TNES respirations Mental status nausea No 05/26/25 08:15 PUBLIC WEIGHER.TNES Vomiting No 05/26/25 08:15 PUBLIC WEIGHER.TNES Anesthesia Postop Eval I: Fluid Summary Crystalloid volume administer 500 05/26/25 08:15 PUBLIC WEIGHER.TNES (ml) Colloids volume administered ( ml) Blood Product volume administered (ml) Total IV fluid infused 500 05/26/25 08:15 PUBLIC WEIGHER.TNES Anesthesia Postop Eval I: Summary Notes Anesthesia Complication No 05/26/25 08:15 PUBLIC WEIGHER.TNES Anesthesia Complication Comment: Post-operative progress note Anesthesia: [...] MD Cosigner Signature: Date CC: ~ Signed [facility] Work Phone: 1(652) 747-180008-05-[address] [facility] Medical Records Department [address] [place] [address] Anesthesia Postop Eval II 05/26/25 1226 MR#: [id number] Acct: [id number] Name: FAWN CAMERON Rep #:[id number] 3 : 1935 89 From: Benigno Baptiste PCP: Dr. Devan Barrera MD Status:[facility] Y Race: C Location: [place] [address] Anesthesia Postop Eval I Sum Postop Eval Completion status Anesthesia document: Postop Eval 1 completed: Yes Anesthesia Postop Eval I Summary Anesthesia Postop Eval I Summary: Anesthesia Postop Eval I: Assessment Summary 3 Airway patent Yes 05/26/25 08:15 PUBLIC WEIGHER.TNES Spontaneous unlabored Yes 05/26/25 08:15 PUBLIC WEIGHER.TNES respirations Mental status nausea No 05/26/25 08:15 PUBLIC WEIGHER.TNES Vomiting No 05/26/25 08:15 PUBLIC WEIGHER.TNES Anesthesia Postop Eval I: Fluid Summary Crystalloid volume administer 500 05/26/25 08:15 PUBLIC WEIGHER.TNES (ml) Colloids volume administered ( ml) Blood Product volume administered (ml) Total IV fluid infused 500 05/26/25 08:15 PUBLIC WEIGHER.TNES Anesthesia Postop Eval I: Summary Notes Anesthesia Complication No 05/26/25 08:15 PUBLIC WEIGHER.TNES Anesthesia Complication Comment: Post-operative progress note Anesthesia: [...] MD Cosigner Signature: Date CC: ~ Signed [facility]08-05-2025 Radiology Diagnostic study note [facility] Imaging Services [address] [place] [address]2791 CTA Chest W/WO Contrast MR#: [id number] Acct: [id number] Name: FAWN CAMERON Rep #: [id number] 6 : 1935 M 89 From: Breanna Fletcher MD PCP: Dr. Devan Barrera MD Status: RE G CLI Study:CTA Chest W/WO Contrast Date of Exam: 05/26/25 Exam# [id number] Ordering Dr: Jesus Alberto Wiggins MD PROCEDURE: [...] 4. Other findings as noted. Reading Location: [id number] CC: Dr. Devan Barrera MD; Dr. Jesus Alberto Wiggins MD ~ Barrow Worker: Signed [facility] Work Phone: 1(382) 623-811508-05-2025 Radiology Diagnostic study note [facility] Imaging Services [address] [place] [address] Chest PA and Lateral MR#: [id number] Acct: [id number] Name: FAWN CAMERON Rep #: [id number] 4 : 1935 M 89 From: Luis Roman MD PCP: Dr. Devan Barrera MD Status: AD M IN Study:Chest PA and Lateral Date of Exam: 05/26/25 Exam# [id number] Ordering Dr: Jesus Alberto Wiggins MD PROCEDURE: [...] the posterior costophrenic angles bilaterally. Reading Location: [facility] CC: Dr. Devan Barrera MD; Dr. Jesus Alberto Wiggins MD ~ Barrow Worker: Signed [facility]08-05-2025 Consult note Author Karri Howell [facility] Note Date/Time May 26, 2025 8:[address] [facility] Medical Records Department [address] [place] [address] Anesthesia Postop Eval I 05/26/25 0814 MR#: [id number] Acct: [id number] Name: FAWN CAMERON Rep #:[id number] 2 : 1935 89 From: Karri CANDELARIA PCP: Dr. Devan Barrera MD Status:EVA KNAPP Y Race: C Location: [place] [address] Anesthesia: Postop Eval I Current Vital Signs [...] CRNA Cosigner Signature: Date CC: ~ Signed [facility] Work Phone: [phone]) 342-192108-05-2025 Consult note Author Benigno Romerogerri [facility] Note Date/Time May 26, 2025 7:[address] [facility] Medical Records Department [address] [place] [address] Pre-Anesthesia Evaluation 05/26/25 0704 MR#: [id number] Acct: [id number] Name: FAWN CAMERON Rep #:[id number] 5 : 1935 89 From: Benigno Baptiste PCP: Dr. Devan Barrera MD Status:EVA Olivier [facility] Y Race: C Location: [place] [address] ASA Classification* ASA Classification ASA Classification: 3 [...] CBC WBC 12.5 K/mm3 (4.4-11.0) H 05/21/25 05: 5 RBC 3.29 M/mm3 (4.6-6.2) L 05/21/25 05:05/21/25 Hgb 10.9 g/dL (13.0-16.5) L 05/21/25 05: 5 Hct 33.7 % (40-54) L 05/21/25 [...] EGD, PEG Anesthesia History Anesthesia History - road inspector: Anesthesia History - road inspector Hx Hospitalization Any Problems With Anesthesia Cholinesterase [...] take am of surgery PONV PONV - road inspector: PONV - road inspector Female HX of Motion Sickness HX of N/V After Surgery Non-Smoker Duration of Surgery greater than 60 minutes Number of Risk Factors PONV Score Height & Weight Height & Weight: Anesthesia: Height & Weight Height 5 ft 6 in 05/26/25 06:17 Weight: 66.075 kg 05/26/25 06:17 Body Mass Index (BMI) 23.5 05/26/25 06:17 Respiratory Assessment Respiratory Assessment - road inspector: Respiratory Tract Infection Hx - road inspector Hx Respiratory Tract Infection STOP Sleep Apnea STOP Sleep Apnea - road inspector: STOP Sleep Apnea - road inspector Hx Hypertension Yes 05/21/25 12:18 Hx Sleep [...] Tobacco Use History Tobacco Use History - road inspector: Tobacco Use History - road inspector Tobacco Use Smoking Status Former smoker 05/20/25 21:46 Hx Tobacco Use No 05/20/25 18:06 Years Smoking Packs Smoked per Day Smoking Cessation Date was within the last 15 years Hx Smoking Cessation Date Hx Smoking Cessation No 05/20/25 18:06 Counseling Hematologic Medial History Hematologic Hx - road inspector: Hematologic Medical Hx - documentation designer Hx of Blood Transfusion Hx of Transfusion in last 3 Months Date of Last Transfusion (if within last 3 months) Ever experience any problems with transfusion(s)? Specify any problems Hx of Preganancy in last 3 Months Nurse Filling Out Transfusion & Questions: Date: Time: Patient unable to answer at this time (ie. confused, unrespo /Reproduction History /Reproductive History - road inspector: /Reproductive Hx- road inspector Hx Now Gestational Age (in weeks): EDC: [...] QHS Const ipation 05/20/25 Unknown History vitamins A,C,S-fzfh-pfacwa 4,296 1 cap PO DAILY Eye Vi [...] and no additional complaints, except as documented. 05/26/25705 <Electronically signed by Benigno Bateman MD> Date _ Benigno Bateman MD Cosigner Signature: Date CC: ~ Signed [facility] Work Phone: 1(305) 909-908808-05-2025 History and physical note Author Stan Friend [facility] Note Date/Time May 26, 2025 6:4 5am [facility] Medical Records Department [address] [place] [address] History & Physical Exam 05/26/25 0644 MR#: [id number] Acct: [id number] Name: FAWN CAMERON Rep #:[id number] 5 : 1935 89 From: Stan Friend PCP: Dr. Devan Barrera MD Status:[facility] Location: [place] [address] HPI - General General Date of Admission: [...] and need for placement of PEG tube. [facility] Medical History Dysphagia Hyperlipidemia Depression BPH (benign [...] QHS Const ipation 05/20/25 Unknown History vitamins A,C,P-dhhz-vbkhok 4,296 1 cap PO DAILY Eye Vi [...] Devan Barrera MD; Stan Ferrara DO~ Signed [facility] Work Phone: 1(540) 134-533508-05-[address] [facility] Medical Records Department [address] [place] [address] Anesthesia Postop Eval I 05/26/2514 MR#: [id number] Acct: [id number] Name: FAWN CAMERON Rep #:[id number] 2 : 1935 89 From: Karri TRAN NA PCP: Dr. Devan Barrera MD Status:EVA GUNTER Y Race: C Location: [place] [address] Anesthesia: Postop Eval I Current Vital Signs Temperature: 98 F Pulse Rate: 85 Blood Pressure: 92/72 Respiratory Rate: 18 Pulse Ox: 96 Assessment Airway patent: Yes Spontaneous unlabored respirations: Yes nausea: No Vomiting: No Anesthesia Complication: No Fluid Hydration Crystalloid volume administer (ml): 500 Total IV fluid infused: 500 Progress Note Anesthesia document: Postop Eval 1 completed: Yes 05/26/25814 PUBLIC WEIGHER> Date _ Karri Howell PUBLIC WEIGHER Cosigner Signature: Date CC: ~ Signed [facility]08-05-[address] [facility] Medical Records Department [address] [place] [address] EGD Report MR#: [id number] Acct: [id number] Name: FAWN CAMERON Rep #:[id number] 3 : 1935 89 From: Stan Ferrara DO PCP: Dr. Devan Barrera MD Status:EVA Olivier [facility] Patient Name: Fawn Cameron Procedure Date: 05/26/2025 [...] present medications. Procedure Code(s): --- Professional --- 53760, Esophagogastroduodenoscopy, flexible, transoral; with directed placement of percutaneous gastrostomy tube CPT copyright 2021 [employer]. All rights reserved. The codes documented in this report are preliminary and upon glue bone drier review may be revised to meet current compliance requirements. Stan Ferrara DO 05/26/2025 7:51:14 AM This report has been signed electronically. Number of Addenda: 0 Note Initiated On: 05/26/2025 7:08 AM 05/26/25 0751 Date _ Stan Ferrara DO Cosigndequan Signature: Date (if indicated) CC: Dr. Devan Barrera MD; Stan Ferrara DO ~ Date Dictated: 05/26/25 0708 Date Transcribed: Barrow Worker: CALIXTO Signed [facility]08-05-[address] [facility] Medical Records Department [address] [place] [address] Provation Physician Letter MR#: [id number] Acct: [id number] Name: FAWN CAMERON Rep #:[id number] 4 : 1935 89 From: Stan Ferrara DO PCP: Dr. Devan Barrera MD Status:[facility] 05/26/2025 Devan Barrera Re : Upper GI endoscopy procedure for Fawn Cameron Dear [place] This procedure was performed on Monday, May [...] AM This report has been signed electronically. 05/26/25750 Date _ Stan Ferrara DO Cosigner Signature: Date (if indicated) CC: Dr. Devan Barrera MD; Stan Ferrara DO ~ Date Dictated: 05/26/25 0708 Date Transcribed: Barrow Worker: RF Signed [facility]08-05-[address] [facility] Medical Records Department [address] [place] [address] Pre-Anesthesia Evaluation 05/26/25 0704 MR#: [id number] Acct: [id number] Name: FAWN CAMERON Rep #:[id number] 5 : 1935 89 From: Benigno Baptiste PCP: Dr. Devan Barrera MD Status:RE G SDC Y Race: C Location: [facility]05- ASA Classification* ASA Classification ASA Classification: 3 [...] EGD, PEG Anesthesia History Anesthesia History - road inspector: Anesthesia History - road inspector Hx Hospitalization Any Problems With Anesthesia Cholinesterase [...] take am of surgery PONV PONV - road inspector: PONV - road inspector Female HX of Motion Sickness HX of N/V After Surgery Non-Smoker Duration of Surgery greater than 60 minutes Number of Risk Factors PONV Score Height & Weight Height & Weight: Anesthesia: Height & Weight Height 5 ft 6 in 05/26/25 06:17 Weight: 66.075 kg 05/26/25 06:17 Body Mass Index (BMI) 23.5 05/26/25 06:17 Respiratory Assessment Respiratory Assessment - road inspector: Respiratory Tract Infection Hx - road inspector Hx Respiratory Tract Infection STOP Sleep Apnea STOP Sleep Apnea - road inspector: STOP Sleep Apnea - road inspector Hx Hypertension Yes 05/21/25 12:18 Hx Sleep [...] Tobacco Use History Tobacco Use History - road inspector: Tobacco Use History - road inspector Tobacco Use Smoking Status Former smoker 05/20/25 21:46 Hx Tobacco Use No 05/20/25 18:06 Years Smoking Packs Smoked per Day Smoking Cessation Date was within the last 15 years Hx Smoking Cessation Date Hx Smoking Cessation No 05/20/25 18:06 Counseling Hematologic Medial History Hematologic Hx - road inspector: Hematologic Medical Hx - documentation designer Hx of Blood Transfusion Hx of Transfusion in last 3 Months Date of Last Transfusion (if within last 3 months) Ever experience any problems with transfusion(s)? Specify any problems Hx of Preganancy in last 3 Months Nurse Filling Out Transfusion & Questions: Date: Time: Patient unable to answer at this time (ie. confused, unrespo /Reproduction History /Reproductive History - road inspector: /Reproductive Hx- road inspector Hx Now Gestational Age (in weeks): EDC: [...] QHS Const ipation 05/20/25 Unknown History vitamins A,C,J-lbey-kivzlo 4,296 1 cap PO DAILY Eye Vi [...] additional complaints, except as documented. 05/26/25 0706 > Date _ Benigno Bateman MD Cosigner Signature: Date CC: ~ Signed [facility]08-05-2025 History and physical note [facility] Medical Records Department [address] [place] [address] History & Physical Exam 05/26/25 0644 MR#: [id number] Acct: [id number] Name: FAWN CAMERON Rep #:[id number] : 1935 89 From: Stan Ferrara DO PCP: Dr. Devan Barrera MD Status:[facility] Location: [place] [address] HPI - General General Date of Admission: [...] and need for placement of PEG tube. [facility] Medical History Dysphagia Hyperlipidemia Depression BPH (benign [...] QHS Const ipation 05/20/25 Unknown History vitamins A,C,S-azvu-afbdwz 4,296 1 cap PO DAILY Eye Vi [...] Devan Barrera MD; Stan Ferrara DO~ Signed [facility]08-05-2025 [facility] Medical Records Department [address] [place] [address] History Physical Exam 05/26/25 0644 MR#: [id number] Acct: [id number] Name: FAWN CAMERON Rep #: [id number] : 1935 89 From: Stan Ferrara DO PCP: Dr. Devan Barrera MD Status:[facility] Location: [address] HPI - General General Date of Admission: [...] and need for placement of PEG tube. [facility] Medical History Dysphagia Hyperlipidemia Depression BPH (benign [...] (vitamin B-12) 1,000 mcg PO DAILY Supplement 04/23 005/20/25 10:25 History 1,000 mcg capsule enoxaparin 30 [...] PO QHS Constipation 05/20 Unknown History vitamins A,C,D-omsu-tbergh 4,296 1 cap PO DAILY Eye Vitamin [...] type: does not us (more content not included)...[facility]08-03-2025 Radiology Diagnostic study note [facility] Imaging Services [address] [place], [place] [id number] Abdomen Single View MR#: [id number] Acct: [id number] Name: FAWN CAMERON Rep #: [id number] : 1935 M 89 From: Pet er Peer PCP: Dr. Devan Barrera MD Status: AD M IN Study:Abdomen Single View Date of Exam: 05/24/25 Exam# [id number] Ordering Dr: Jesus Alberto Wiggins MD PROCEDURE: [...] NG tube in satisfactory position. Reading Location: [facility] CC: Dr. Devan Barrera MD; Dr. Jesus Alberto Wiggins MD ~ Barrow Worker: Signed [facility]08-02-2025 Progress note Author Kimberlyn Bates [facility] Note Date/Time May 23, 2025 5:0 5pm [facility] Medical Records Department [address] [place] [address] Progress Note - Pharmacy 05/23/25 1517 MR#: [id number] Acct: [id number] Name: FAWN CAMERON Rep #:[id number] 2 : 1935 89 From: Kimberlyn Bates PCP: Dr. Devan Barrera MD Status:AD M IN Location: [facility]- Documented by User: Kimberlyn Bates 05/23/25 16:40 [...] 5 Mg Tablet NG 5 mg DAILY SILVNAO Administration Protocol Aspirin 81 mg 05/21/25 10:00 [...] 4 Mg Tablet NG 4 mg QHS [facility] Administration Protocol Enoxaparin Sodium 30 [...] Glycerin/Hypromellose/Polyethylene 2 drp 05/21/25 07:32 05/21/25 11:32 Glycerin/Hypromellose/Zst695 15 Ml Bottle EACH EYE 2 drp Q1H PRN Administration DRY EYES Enteral Nutritional Formula 1,000 mls @ 50 mls/hr 05/20/25 21:00 05/22/25 16:51 Jevity 1.5 GT 50 mls/hr .Q20H SILVANO Administration Lisinopril 40 mg 05/21/25 10:00 05/23/25 10:27 Lisinopril 40 Mg Tablet GT 40 mg DAILY SILVANO Administration Methotrexate 20 mg 05/24/25 10:00 Methotrexate 2.5 Mg Tablet GT Q7D [facility] Metoprolol Tartrate 25 mg 05/20/25 [...] 40 Mg Tablet NG 40 mg QHS [facility] Administration Senna 1 tablet 05/20/25 [...] (last 139mmol/L), suicidal ideation (black boxwarning), dementia/delirium (Mara) and anticholinergic side effects (Mara, pt has [...] Jesus Alberto Wiggins MD> CC: ~ Signed [facility] Work Phone: 1(620) 108-328408-02-[address] [facility] Medical Records Department [address] [place] [address] Progress Note - Pharmacy 05/23/25 1517 MR#: [id number] Acct: [id number] Name: FAWN CAMERON Rep #:[id number] : 1935 89 From: Kimberlyn Bates PCP: Dr. Devan Barrera MD Status:AD M IN Location: [place] [address] Documented by User: Kimberlyn Bates 05/23/25 16:40 [...] Glycerin/Hypromellose/Polyethylene 2 drp 05/21/25 07:32 05/21/25 11:32 Glycerin/Hypromellose/Jjs004 15 Ml Bottle EACH EYE 2 drp [...] 21:05 Senna Tablet NG Not Given QHS [facility] Tuberculin PPD 0.1 ml 05/28/25 10:00 Tuberculin,Purif.Prot.Deriv. [...] monitor for S/S of GERD and diarrhea (Mara). 8. BPH: doxazosin 4mg GT QHS. Please [...] (last 139mmol/L), suicidal ideation (black boxwarning), dementia/delirium (Mara) andanticholinergic side effects (Mara, pt [...] 1640 Kimberlyn Andrews Signature (if applicable): 05/23/25 8213 CC: ~ Signed [facility]07-31-2025 Radiology Diagnostic study note [facility] Imaging Services [address] [place] [address] [id number] Brain/Head without Contrast MR#: [id number] Acct: [id number] Name: FAWN CAMEORN Rep #: [id number] : 1935 M 89 From: Michael Brown MD PCP: Dr. Devan Barrera MD Status: RE G CLI Study:Brain/Head without Contrast Date of Exa m: 05/21/25 Exam# [id number] Ordering Dr: Jesus Alberto Wiggins MD PROCEDURE: [...] acute territorial infarct. Atherosclerotic vascular calcifications. Absent [place] ocular lenses. Intact skull base and calvarium. [...] subdural hematoma collection or hygroma. Reading Location: [id number] CC: Dr. Devan Barrera MD; Dr. Jesus Alberto Wiggins MD ~ Barrow Worker: Signed [facility]07-31-2025 Radiology Diagnostic study note [facility] Imaging Services [address] [place] [address] Chest PA and Lateral MR#: [id number] Acct: [id number] Name: FAWN CAMERON Rep #: [id number] : 1935 M 89 From: Michael Brown MD PCP: Dr. Devan Barrera MD Status: AD M IN Study:Chest PA and Lateral Date of Exam: 05/21/25 Exam# [id number] Ordering Dr: Jesus Alberto Wiggins MD PROCEDURE: [...] IMPRESSION: No acute cardiopulmonary disease. Reading Location: [id number] CC: Dr. Devan Barrera MD; Dr. Jesus Alberto Wiggins MD ~ Barrow Worker: Signed [facility]07-30-2025 [facility] Medical Records Department [address] [place] [address] History Physical Exam 05/20/25 2130 MR#: [id number] Acct: [id number] Name: FAWN CAMERON Rep #: [id number] : 1935 89 From: Jesus Alberto Wiggins MD PCP: Dr. Devan Barrera MD Status:ADM IN Location: [facility] TCU05 HPI - General General Date of Admission: 05/20/25 Date of Service: 05/20/25 Chief Complaint: Here for rehabilitation. HPI Narrative FAWN CAMERON, is a 89 Male who presents with followin05/10/2025 Admit [facility]. 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 Injuries: 1. [...] extremity for bilateral pubic rami fracture. 05/14/2025 MINT MACHINE OPERATOR recommended NPO. 05/15/2025 No acute events overnight. Dobbhoff tube placed for TF. 05/16/2025 Advance TF to goal. 05/18/2025 No acute events overnight. Dizzy with PT. 05/19/2025 PT/OT/CM for SNF. 05/20/2025 Admit to TCU with debility, here for rehabilitation, strengthening, prior to discharge home with . [facility] Medical History (Updated 05/20/25 @ 21:42 by [...] PO QHS Constipation 05/20 Unknown History vitamins A,C,M-rhtv-bhpwfp 4,296 1 cap PO DAILY Eye Vitamin [...] loss Suicide attempt S (more content not included)...[facility]07-30-2025 Evaluation note* Diagnosis Onset Date Resolution Status [...] 2025 6:52pm Dysphagia acute May 26 5:45am [facility] Work Phone: 1(193) 214-145307-30-2025 Evaluation note* Diagnosis Onset Date Resolution Status [...] Dysphagia acute June 17, 2 025 2:23pm [facility] Work Phone: 1(168) 964-953607-30-2025 Evaluation note* Diagnosis Onset Date Resolution Status [...] May 20 6:52pm Orbital floor fracture resolved 2024 6:52pm Orbital roof fracture resolved Apr 6:52pm Sacral fracture resolved April 6:52pm SAH (subarachnoid hemorrhage) resolv ed May 20, 2025 6:52pm SDH (subdural hematoma) resolved 2024 6:52pm Dysphagia resolved May 26 5:45am Dysphagia resolved June 17, 2 025 2:23pm [facility] Work Phone: 1(127) 328-508407-30-2025 History of Present illness Narrative* Miesha Kelly RN - 05/20/2025 2:01 PM EDT 05/20/25 1401 Discharge Planning Expected Discharge Disposition SNF Does the patient need discharge transport arranged? Yes Transitional Care Coordination Progress Note: Per trauma team, pt medically ready for discharge. [facility] SNF can accept pt today. Transport confirmed for 3:30pm, PAM Ramesh notified. Bedside nurse notified, report #[phone] provided. Transport slip delivered to unit control worker. This nurse met with patient at the bedside and notified of acceptance to [facility] and transportation time. Telephone call to pts , notified of the above. Per [facility] support team no [phone] is requires for their swing bed program. DIANNE Amato, scientific glass blower Coordinator Office: [phone] Secure chat via [employer] * Miesha Kelly RN - 05/20/2025 9:27 AM EDT 05/20/25 0908 Discharge Planning Expected Discharge Disposition SNF Does the patient need discharge transport arranged? Yes Transitional Care Coordination Progress Note: This nurse notified by [facility] liaison (Fatou [phone]) that their SNF can accept pt, stated they offer 1 1/2 to 2 hours of therapy, 5-6 days/ week. Telephone call to pts , agreeable to referral being placed. Referral submitted via [facility]. DIANNE Amato, scientific glass blower Coordinator Office: [phone] Secure chat via [employer] * Elaine Madrigal APRN-CAMI - 05/19/2025 4:00 PM EDT [facility] TRAUMA SERVICE - PROGRESS NOTE Patient Name: Fawn Cameron Admit Date: [id number] : 1935 AGE: 89 y.o. 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 LOC (yes/no?): Yes Anticoagulant / Anti-platelet Rx? (for what dx?): ASA 81 Referring Facility Name (N/A for scene EMR run): [facility] INJURIES: Right orbital floor Mild buckled fracture [...] #Oropharyngeal dysphagia -failed bedside eval and MBSS; MINT MACHINE OPERATOR rec NPO with ice chips -pt had [...] and discussed with Dr. Montoya. Elaine Madrigal, FOOD BROKER[facility] Trauma Surgery 77872 Total face to face time spent with [...] and imaging pertinent for today's encounter. * Jnanette Guidry, PT - 05/19/2025 2:27 PM EDT Physical Therapy Physical Therapy Treatment Patient Name: Fawn Cameron "Andres" Department: [place] [address] Room: [address] [place], [place] [address] Today's Date: 05/19/2025 Time Calculation Start Time: [...] Yes Therapeutic Exercise Activity 1: seated: marches, JHONNY and AP x 10 ea Therapeutic Activity [...] 1: cues for hand placement Outcome Measures: [facility] Basic Mobility Turning from your back to [...] Component Value Date TSH 4.88 (H) 05/12/2025 [id number] 283 05/12/2025 VITD25 18 (L) 05/12/2025 Results [...] Clement Estevez 05/09/2025 8:28 AM Dictation workstation: [id number] XR abdomen 1 view Narrative: Interpreted By: Oj Regan, STUDY: XR ABDOMEN 1 VIEW; 05/19/2025 11:35 am INDICATION: Signs/Symptoms:eval dobhoff placement. COMPARISON: 05/15/2025. ACCESSION NUMBER(S): [id number] ORDERING CLINICIAN: ELAINE MADRIGAL FINDINGS: Dobbhoff tube [...] Oj Regan 05/19/2025 12:02 PM Dictation workstation: [id number] DATA: EKG: QTC Encounter Date: 05/10/25 ECG 12 lead Result Value Ventricular Rate 72 Atrial Rate 72 AZ Interval 190 QRS Duration 104 QT Interval 394 QTC Calculation(Bazett) 431 P Stella 31 R Stella -15 T Stella 44 QRS Count 12 Q Onset 210 P Onset 115 P Offset 178 T Offset 407 QTC Fredericia 418 Narrative Normal sinus rhythm Normal ECG When compared with ECG of 10-MAY-2025 13:54, No significant change was found See ED provider note for full interpretation and clinical correlation Confirmed by Yolanda Garcia ([id number]) on 05/11/2025 3:47:31 AM Anti-psychotics in 48 hours: no Opioids/Benzodiazepines in 48 hours: No Anticholinergics on board: No Restraints:No Indwelling catheters: no Last BM: 05/18 UO in 24 hours: 250 cc Activity in the past 24 hours: Bed-bound Need for ambulatory devices: Unknown Assessment/Plan Fawn Cameron "Andres" is a 89 y.o. male on day [...] Goals of Care: -Health care power of claims attorney: Diya () -Living will: present Code [...] over the weekend, please page Geriatrics pager [phone] Analy Cardona MD PGY1 Internal Medicine I [...] 650 mg 650 mg nasoduodenal tube q6h [facility] Rajwinder Omer MD 650 mg at 05/19/25 0923 aspirin chewable tablet 81 mg 81 mg oral Daily Rajwinder Omer MD 81 mg at 05/19/25 09 bisacodyl (Dulcolax) EC tablet 5 mg 5 mg oral Daily PRN Rajwinder Omer MD cholecalciferol (Vitamin D-3) tablet 125 mcg 125 mcg nasoduodenal tube Daily Rajwinder Omer MD 125 mcg at 05/19/25 09 cyanocobalamin (Vitamin B-12) tablet 1,000 mcg 1,000 mcg nasoduodenal tube Daily Rajwinder Omer MD 1,000 mcg at 05/19/25 0923 enoxaparin (Lovenox) syringe 30 mg 30 mg subcutaneous q12h SILVANO Rajwinder Omer MD 30 mg at 05/19/25 [...] mg 4 mg intravenous q8h PRN Rajwinder Omre MD oxyCODONE (Roxicodone) immediate release tablet 2.5 [...] Nightly Rajwinder Omer MD 40 mg at 057 sennosides (Senokot) tablet 8.6 mg 1 tablet [...] .Transitional Care Coordination Progress Note: VM to [facility], VM placed for liaison. Requested an update on acceptance, my contact information provided. Addendum [phone]: This nurse notified by [facility] that their MD feels as though pt can't tolerate 3hours of therapy. Unable to accept at this time. Facility suggested their swing bed program, that offers 1 1/2 to 2 hours of therapy ([facility] # [phone], fax #[phone]). This nurse spoke with pts and notified her of the above. Agreeable to referral being submitted to [facility], SNF list emailed to pts for review. Telephone call to [facility] (Paige BURGESS) confirmed they can accept with a marquise, confirmed bed availability. Referral faxed for review. My contact information provided. Addendum 5827: Telephone call to [facility], spoke with Paige BURGESS, who stated clinicals were not received. Requested that they be faxed to [phone], clinicals faxed. Pts chose SNF FOC via [facility] 1) [facility] 2) [facility] 3) [facility] Referral submitted via [facility]. DIANNE Amato, scientific glass blower Coordinator Office: [phone] Secure chat via [employer] * Elaine Madrigal, FOOD BROKER[employer]ER - 05/18/2025 3:10 PM EDT [facility] TRAUMA SERVICE - PROGRESS NOTE Patient Name: Fawn Cameron Admit Date: [id number] : 1935 AGE: 89 y.o. 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 LOC (yes/no?): Yes Anticoagulant / Anti-platelet Rx? (for what dx?): ASA 81 Referring Facility Name (N/A for scene EMR run): [facility] INJURIES: Right orbital floor Mild buckled fracture [...] dysphagia > failed bedside eval and MBSS; MINT MACHINE OPERATOR rec NPO with ice chips > pt [...] and discussed with Dr. Montoya. Elaine Madrigal, [facility] Trauma Surgery 34411 Total face to face time spent with [...] imaging pertinent for today's encounter. * Enid Ng, OT - 05/18/2025 2:19 PM EDT Occupational Therapy Occupational Therapy Occupational Therapy Treatment Name: Fawn Brown" : 1935 Date: 05/18/25 Room: [address] [place] [address] Time Calculation Start Time: 1230 Stop Time: [...] Standing-Level of Assistance: Minimum assistance Outcome Measures: [facility] Daily Activity Putting on and taking off [...] Response: Needs Reinforcement Precautions, taught by Enid gN OT at 05/18/2025 2:18 PM. Learner: Patient [...] 05/18/25 at 2:19 PM Enid Ng OT [phone] * Analy Cardona MD - 05/18/2025 1:41 [...] Component Value Date TSH 4.88 (H) 05/12/2025 [id number] 283 05/12/2025 VITD25 18 (L) 05/12/2025 Results [...] Clement Estevez 05/09/2025 8:28 AM Dictation workstation: [id number] FL modified barium swallow study Narrative: Interpreted By: Antonio Bullock and Nelson Camree STUDY: FL MODIFIED BARIUM SWALLOW STUDY;; 05/14/2025 1:53 pm INDICATION: Signs/Symptoms:R/o aspiration, oropharyngeal dysphagia. COMPARISON: None. ACCESSION NUMBER(S): [id number] ORDERING CLINICIAN: LAY WALDROP TECHNIQUE: MBSS completed. Informed verbal consent obtained prior to completion of exam. Trials of thin, nectar thick, honey thick, puree, soft-solids, and regular solids given. MINT MACHINE OPERATOR: Shannon Santos Phone/Pager: [phone] SPEECH FINDINGS: Speech-Language Pathology Inpatient Modified Barium Swallow Study Patient Name: Fawn Brown" : 1935 Today's Date: 05/14/25 Start Time: 1300 Stop Time: 1335 Time Calculation (min): 35 Modified Barium Swallow Study completed. Informed verbal consent obtained prior to completion of exam. Trials of thin liquids via tsp/straw, mildly (nectar) thick liquids via tsp/straw, moderately (honey) thick liquids via tsp/straw, purees, and regular solids were given. 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 He [...] risk of aspiration w/ continued PO intake MINT MACHINE OPERATOR PLAN: Skilled MINT MACHINE OPERATOR Services: Skilled MINT MACHINE OPERATOR intervention for dysphagia is warranted. MINT MACHINE OPERATOR Frequency: pending GOC decisions made Discussed POC: [...] given on all accounts. Treatment Provided Today: MINT MACHINE OPERATOR provided extensive education and training to pt/pt [...] further evaluation by medical specialists, as applicable. MINT MACHINE OPERATOR Impressions with Severity Rating: Pt awake/alert, consistently cooperative/able to follow commands, and responded appropriately to conversation/questions by MINT MACHINE OPERATOR. Missing dentition noted. Severe oropharyngeal dysphagia. Prolonged [...] residue, NO pt response After the Swallow [place] Thick Liquids: 8. SILENT ASPIRATION - contrast [...] findings as stated by Prakash Jorge MD (residential substance abuse counselor). This study was interpreted at [place], [place]. MACRO: None Signed by: Antonio Lane 05/16/2025 4:02 PM Dictation workstation: [id number] XR abdomen 1 view Narrative: Interpreted By: Michelle Hodges and Ritchie Brandon STUDY: XR ABDOMEN 1 VIEW; 05/15/2025 5:16 pm INDICATION: Signs/Symptoms:Confirm DHT placement. COMPARISON: CT chest abdomen pelvis 05/10/2025. ACCESSION NUMBER(S): [id number] ORDERING CLINICIAN: LAY WALDROP FINDINGS: Dobbhoff tube [...] Freedom Luna. This study was interpreted at [place], [place]. MACRO: None Signed by: Michelle Blackwell 05/16/2025 6:04 AM Dictation workstation: [id number] DATA: EKG: QTC Encounter Date: 05/10/25 ECG 12 lead Result Value Ventricular Rate 72 Atrial Rate 72 AZ Interval 190 QRS Duration 104 QT Interval 394 QTC Calculation(Bazett) 431 P Stella 31 R Stella -15 T Stella 44 QRS Count 12 Q Onset 210 P Onset 115 P Offset 178 T Offset 407 QTC Fredericia 418 Narrative Normal sinus rhythm Normal ECG When compared with ECG of 10-MAY-2025 13:54, No significant change was found See ED provider note for full interpretation and clinical correlation Confirmed by Yolanda Garcia ([id number]) on 05/11/2025 3:47:31 AM Anti-psychotics in 48 hours: no Opioids/Benzodiazepines in 48 hours: No Anticholinergics on board: No Restraints:No Indwelling catheters: no Last BM: 05/18 UO in 24 hours: 250 cc Activity in the past 24 hours: Bed-bound Need for ambulatory devices: Unknown Assessment/Plan Fawn Cameron "Andres" is a 89 y.o. male on day [...] Goals of Care: -Health care power of claims attorney: Diya () -Living will: present Code [...] over the weekend, please page Geriatrics pager [phone] Analy Cardona MD PGY1 Internal Medicine I [...] mg 650 mg nasoduodenal tube q6h SILVANO Rajwinder Kan, MD 650 mg at 05/18/25 0910 aspirin [...] syringe 30 mg 30 mg subcutaneous q12h [facility] Rajwinder Omer MD 30 mg at 05/18/25 [...] Inpatient Financial Class: Medicare A/B ADOD: 05/19 [facility] [place] notified that per [facility], facility is unable to accept pt with a marquise. Per [facility] no plan for PEG at this time, this nurse awaiting plan for follow up. VM to pts second [facility], my contact provided. Telephone call to pts , notified of the above. Pts requested that refferal be sent to [facility]. Addendum 1521: Telephone call to [facility] admissions nurse who confirmed she received clinical information. Stated she'd review. My contact information provided. DIANNE Amato, scientific glass blower Coordinator Office: [phone] Secure chat via [employer] * Jannette Guidry, PT - 05/18/2025 11:05 AM EDT Physical Therapy Physical Therapy Treatment Patient Name: Fawn Brown" Department: [place] [address] Room: [address] [place] [address] Today's Date: 05/18/2025 Time Calculation Start Time: [...] upright posture Stairs Stairs: No Outcome Measures: [facility] Basic Mobility Turning from your back to [...] Omer MD - 05/16/2025 4:50 PM EDT [facility] TRAUMA SERVICE - PROGRESS NOTE Patient Name: Fawn Cameron Admit Date: [id number] : 1935 AGE: 89 y.o. 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 LOC (yes/no?): Yes Anticoagulant / Anti-platelet Rx? (for what dx?): ASA 81 Referring Facility Name (N/A for scene EMR run): [facility] INJURIES: Right orbital floor Mild buckled fracture [...] dysphagia > failed bedside eval and MBSS; MINT MACHINE OPERATOR rec NPO with ice chips >pt had [...] ppx: Home PPI for GERD - Dispo: [facility] care, pending acute rehab. DHT placed, medically [...] goal rate feeds. ADOD tomorrow VM to [facility] rehab, advised of pts anticipated date of discharge. My contact information provided. DIANNE Amato, scientific glass blower Coordinator Office: [phone] Secure chat via [employer] * Rajwinder Omer MD - 05/15/2025 6:06 PM EDT [facility] TRAUMA SERVICE - PROGRESS NOTE Patient Name: Fawn Cameron Admit Date: [id number] : 1935 AGE: 89 y.o. 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 LOC (yes/no?): Yes Anticoagulant / Anti-platelet Rx? (for what dx?): ASA 81 Referring Facility Name (N/A for scene EMR run): [facility] INJURIES: Right orbital floor Mild buckled fracture [...] dysphagia > failed bedside eval and MBSS; MINT MACHINE OPERATOR rec NPO with ice chips >pt had [...] ppx: Home PPI for GERD - Dispo: [facility] care, pending acute rehab. DHT placed, medically [...] Therapy Physical Therapy Treatment Patient Name: Fawn Cameron "Andres" Department: [place] [address] Room: [facility]6081 Today's Date: 05/15/2025 Time Calculation Start Time: 952 Stop Time: 1016 Time Calculation (min): 24 min Assessment/Plan PT [...] and walker Stairs Stairs: No Outcome Measures: [facility] Basic Mobility Turning from your back to [...] 11 Education Documentation Precautions, taught by Beatriz Gordon, PT at 05/15/2025 12:40 PM. Learner: Patient Readiness: Acceptance Method: Explanation Response: Verbalizes Understanding Body Mechanics, taught by Beatriz Gordon PT at 05/15/2025 12:40 PM. Learner: Patient Readiness: Acceptance Method: Explanation Response: Verbalizes Understanding Mobility Training, taught by Beatriz Gordon, PT at 05/15/2025 12:40 PM. Learner: Patient [...] My contact information provided, Updates submitted to [facility]. DIANNE Amato, scientific glass blower Coordinator Office: [phone] Secure chat via [employer] * Ilda Hutson OT - 05/15/2025 10:25 AM EDT Occupational Therapy Occupational Therapy Treatment Name: Fawn Cameron "Andres" Department: [place] [address] Room: 6081/6081-A Date: 05/15/25 Time Calculation Start Time: 936 [...] Sitting-Level of Assistance: Contact guard Outcome Measures: [facility] Daily Activity Putting on and taking off [...] F) Resp 15 15 18 16 Vitals: 05/10/257 Weight: 66.2 kg (146 lb) Relevant Results Lab Results Component Value Date TSH 4.88 (H) 05/12/2025 [id number] 283 05/12/2025 VITD25 18 (L) 05/12/2025 Results [...] Clement Estevez 05/09/2025 8:28 AM Dictation workstation: [id number] Transthoracic Echo Complete [facility], [address] [place] [address] and TRANSTHORACIC ECHOCARDIOGRAM REPORT Patient Name: FAWN CAMERON Reading Physician: [id number] Noelle Roberts MD Study Date: 05/13/2025 Ordering Provider: [id number] LAY WALDROP MRN/PID: [id number] Fellow: Nurse: Date of /Age: 5 1935 Baseball Scout: Enmanuel sarmiento RDCS, RVT Gender assigned at M Additional Staff: : Height: 167.64 cm Admit Date: 05/10/2025 Weight: 66.23 kg Admission Status: Inpatient - STAT BSA / BMI: 1.75 m2 / 23.57 kg/m2 Blood Pressure: 120/77 mmHg Department Location: [place] [address] Study Type: TRANSTHORACIC ECHO (TTE) COMPLETE Diagnosis/ICD: Syncope-R55 Indication: syncopal work-up CPT Code: Echo Complete w Full Doppler-47736 Patient History: Pertinent History: HTN, HLD, TIA, [...] previous echocardiogram(s): Compared with study dated 07/31/2024, [facility], no significant changes from the report, [...] regurgitation. 6. Compared with study dated 07/31/2024, [facility], no significant changes from the report, [...] LA Area A2C: 12.1 cm2 LA Major Stella A4C: 4.4 cm LA Major Stella A2C: 4.8 cm RIGHT ATRIUM: Normal Ranges: [...] Neetu: 1.60 PulmV Sys Neetu: 67.70 cm/s [id number] Noelle Roberts MD Electronically signed on 05/13/2025 at 4:09:55 PM Final DATA: EKG: QTC Encounter Date: 05/10/25 ECG 12 lead Result Value Ventricular Rate 72 Atrial Rate 72 AZ Interval 190 QRS Duration 104 QT Interval 394 QTC Calculation(Bazett) 431 P Stella 31 R Stella -15 T Stella 44 QRS Count 12 Q Onset 210 P Onset 115 P Offset 178 T Offset 407 QTC Fredericia 418 Narrative Normal sinus rhythm Normal ECG When compared with ECG of 10-MAY-2025 13:54, No significant change was found See ED provider note for full interpretation and clinical correlation Confirmed by Yolanda Garcia ([id number]) on 05/11/2025 3:47:31 AM Anti-psychotics in 48 hours: no Opioids/Benzodiazepines in 48 hours: No Anticholinergics on board: No Restraints:No Indwelling catheters: no Last BM: 05/15 UO in 24 hours: 3x Activity in the past 24 hours: Bed-bound Need for ambulatory devices: Unknown Assessment/Plan Fawn Brown" is a 89 y.o. male on day [...] Goals of Care: -Health care power of claims attorney: Diya () -Living will: present Code [...] over the weekend, please page Geriatrics pager [phone] Robb Rossi DO PGY3 Family Medicine I saw and [...] tablet 650 mg 650 mg oral q6h [facility] Daryl Dickson 650 mg at [...] mL/hr at05/15/25 0618 100 mL/hr at 05/15/25 0618 enoxaparin (Lovenox) syringe 30 mg 30 mg subcutaneous q12h [facility] Rajwinder Omer MD 30 mg [...] mg 2.5 mg oral q6h PRN Daryl Dickosn 2.5 mg at 05/11/251848 oxyCODONE (Roxicodone) immediate [...] May Evelyn Granda MD 40 mg at 05/12/252124 [...] acute concerns. Pain well controlled. Patient's home daytime babysitter was visiting him at the bedside when [...] (98.2 F) Resp 16 17 15 Vitals: 05/10/257 Weight: 66.2 kg (146 lb) Relevant Results Lab Results Component Value Date TSH 4.88 (H) 05/12/2025 [id number] 283 05/12/2025 VITD25 18 (L) 05/12/2025 Results [...] Clement Estevez 05/09/2025 8:28 AM Dictation workstation: [id number] Transthoracic Echo Complete [facility], [address] [place] [address] and TRANSTHORACIC ECHOCARDIOGRAM REPORT Patient Name: FAWN Lee Physician: [id number] Noelle Roberts MD Study Date: 05/13/2025 Ordering Provider: [id number] LAY WALDROP MRN/PID: [id number] Fellow: Nurse: Date of /Age: 5 1935 Baseball Scout: Enmanuel Cook years RDCS, RVT Gender assigned at M Additional Staff: : Height: 167.64 cm Admit Date: 05/10/2025 Weight: 66.23 kg Admission Status: Inpatient - STAT BSA / BMI: 1.75 m2 / 23.57 kg/m2 Blood Pressure: 120/77 mmHg Department Location: [place] [address] Study Type: TRANSTHORACIC ECHO (TTE) COMPLETE Diagnosis/ICD: Syncope-R55 Indication: syncopal work-up CPT Code: Echo Complete w Full Doppler-95625 Patient History: Pertinent History: HTN, HLD, TIA, [...] previous echocardiogram(s): Compared with study dated 07/31/2024, [facility], no significant changes from the report, [...] regurgitation. 6. Compared with study dated 07/31/2024, [facility], no significant changes from the report, [...] LA Area A2C: 12.1 cm2 LA Major Stella A4C: 4.4 cm LA Major Stella A2C: 4.8 cm RIGHT ATRIUM: Normal Ranges: [...] Neetu: 1.60 PulmV Sys Neetu: 67.70 cm/s [id number] Noelle Roberts MD Electronically signed on 05/13/2025 at 4:09:55 PM Final DATA: EKG: QTC Encounter Date: 05/10/25 ECG 12 lead Result Value Ventricular Rate 72 Atrial Rate 72 AZ Interval 190 QRS Duration 104 QT Interval 394 QTC Calculation(Bazett) 431 P Stella 31 R Stella -15 T Stella 44 QRS Count 12 Q Onset 210 P Onset 115 P Offset 178 T Offset 407 QTC Fredericia 418 Narrative Normal sinus rhythm Normal ECG When compared with ECG of 10-MAY-2025 13:54, No significant change was found See ED provider note for full interpretation and clinical correlation Confirmed by Yolanda Garcia ([id number]) on 05/11/2025 3:47:31 AM Anti-psychotics in 48 hours: Opioids/Benzodiazepines in 48 hours: Yes (opioids) Anticholinergics on board: No Restraints:No Indwelling catheters: Yes - bed bound Last BM: 05/14 UO in 24 hours: 500 mL Activity in the past 24 hours: Bed-bound Need for ambulatory devices: Unknown Assessment/Plan Fawn Brown" is a 89 y.o. male on day [...] Goals of Care: -Health care power of claims attorney: Diya () -Living will: present Code [...] over the weekend, please page Geriatrics pager [phone] Reynaldo Navarro MD PGY-1 Internal Medicine Attending [...] tablet 650 mg 650 mg oral q6h [facility] Daryl Dickson 650 mg at [...] intravenous Continuous Rajwinder Omer MD 100 mL/hr at05/14/25 1151 100 [...] Frida Granda MD 12.5 mg at 05/13/25 09 [...] Therapy Physical Therapy Treatment Patient Name: Fawn Cameron "Andres" Today's Date: 05/14/2025 Time Calculation Start Time: [...] advancement. Attempted heel-toe pivot to advance, pt.reports "feeling clammy" with +fatigue. Requesting to return to sitting.) Transfers Transfer: Yes Transfer 1 Technique 1: Sit to stand, Stand to sit Transfer Device 1: Walker Transfer Level of Assistance 1: Moderate assistance Trials/Comments 1: cues for safety/sequencing. Manual A to facilitate full hip extension. 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 Assessment: Clinical bedside swallow evaluation completed. Pt cleared for evaluation by RN. Received awake/alert and upright in bed for session. A&Ox4. Oral mechanism examination WNL. Consistently cooperative/able to follow commands and responded appropriately to conversation/questions by MINT MACHINE OPERATOR. Endorses difficulty swallowing characterized by coughing w/ [...] to prevent buildupof bacteria within the oropharynx. RN/ aware. Extensive education/treatment provided to pt following [...] 06/14/2025 Status: Goal Initiated this date Plan: MINT MACHINE OPERATOR Services Indicated: Yes Frequency: 2x per week Discussed POC with patient MINT MACHINE OPERATOR - OK to Discharge Pain: 0-10 0 = No pain. Inpatient Education: Extensive education provided to patient regarding current swallow function, recommendations/results, and POC. Consultations/Referrals/Coordination of Services: N/A * Keren Mcclelland PT - 05/13/2025 2:31 PM EDT Physical Therapy Therapy Communication Note Patient Name: Fawn Cameron "Andres" Department: [place] [address] Room: [address] [place], [place] [address] Today's Date: 05/13/2025 Discipline: Physical Therapy Missed [...] Omer MD - 05/13/2025 1:19 PM EDT [facility] TRAUMA SERVICE - PROGRESS NOTE Patient Name: Fawn Cameron Admit Date: [id number] : 1935 AGE: 89 y.o. 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 LOC (yes/no?): Yes Anticoagulant / Anti-platelet Rx? (for what dx?): ASA 81 Referring Facility Name (N/A for scene EMR run): [facility] INJURIES: Right orbital floor Mild buckled fracture [...] ppx: Home PPI for GERD - Dispo: [facility] care, pending acute rehab Seen and d/w [...] from last 7 days Lab Units 05/13/25 0705/11/25 0431 05/10/25 1422 WBC AUTO x10*3/uL 12.4* [...] EKG NSR, trop (-), pending orthostatics * MarthaRaymundo Hutson, OT - 05/13/2025 10:53 AM EDT Occupational Therapy Evaluation/Treatment Patient Name: Fawn Cameron "Andres" Department: [place] [address] Room: [address] [place] [address] Today's Date: 05/13/25 Time Calculation Start Time: [...] Built-in shower seat Prior Function: Level of [place]: Independent with ADLs and functional transfers, Independent [...] (shoulder flex ~0-90 distal WFL) Outcome Measures: [facility] Daily Activity Putting on and taking off [...] 12 17 18 18 8 14 Vitals: 05/10/257 Weight: 66.2 kg (146 lb) Relevant Results Lab Results Component Value Date TSH 4.88 (H) 05/12/2025 [id number] 283 05/12/2025 VITD25 18 (L) 05/12/2025 Results [...] Clement Estevez 05/09/2025 8:28 AM Dictation workstation: [id number] ECG 12 lead Normal sinus rhythm Normal ECG When compared with ECG of 07-DEC-2023 09:54, Premature atrial complexes are no longer Present See ED provider note for full interpretation and clinical correlation Confirmed by Brandee Hawkins ([id number]) on 05/11/2025 1:16:43 PM XR pelvis With [place] Judet views Narrative: Interpreted By: Wanda Montalvo and Omar Mahmoud STUDY: XR PELVIS WITH INLET OUTLET JUDET VIEWS; ; 05/11/2025 4:18 am INDICATION: Signs/Symptoms:eval. COMPARISON: CT chest abdomen pelvis 05/10/2025. ACCESSION NUMBER(S): [id number] ORDERING CLINICIAN: LEONARDO BERGER FINDINGS: Five view [...] with the findings as stated by Gregory Deuñas MD (PGY-3). This study was interpreted at [facility], [place], [place]. MACRO: None Signed by: Wanda Montalvo 05/11/2025 5:01 AM Dictation workstation: [id number] XR chest 1 view Narrative: STUDY: Chest Radiograph; 05/11/2025 1:13AM INDICATION: Evaluation for surgery trauma. COMPARISON: 09/23/2022 XR chest ACCESSION NUMBER(S): [id number] ORDERING CLINICIAN: SANTIAGO MENENDEZ TECHNIQUE: Frontal chest [...] and clinical correlation Confirmed by Yolanda Garcia ([id number]) on 05/11/2025 3:47:[address] head wo IV contrast Narrative: Interpreted By: Wanda Montalvo, Jake Jenkins STUDY: CT HEAD WO IV CONTRAST; 05/10/2025 11:27 pm INDICATION: Signs/Symptoms:Trauma, intracranial bleeding. Stability scan. COMPARISON: CT head without IV contrast 05/10/2025 3:03 p.m.. ACCESSION NUMBER(S): [id number] ORDERING CLINICIAN: CARRI GREER TECHNIQUE: Noncontrast axial [...] MD (PGY-3). This study was interpreted at [place], [place]. MACRO: None Signed by: Wanda Montalvo 05/11/2025 12:03 AM Dictation workstation: [id number] DATA: EKG: QTC Encounter Date: 05/10/25 ECG 12 lead Result Value Ventricular Rate 72 Atrial Rate 72 AZ Interval 190 QRS Duration 104 QT Interval 394 QTC Calculation(Bazett) 431 P Stella 31 R Stella -15 T Stella 44 QRS Count 12 Q Onset 210 P Onset 115 P Offset 178 T Offset 407 QTC Fredericia 418 Narrative Normal sinus rhythm Normal ECG When compared with ECG of 10-MAY-2025 13:54, No significant change was found See ED provider note for full interpretation and clinical correlation Confirmed by Yolanda Garcia ([id number]) on 05/11/2025 3:47:31 AM Anti-psychotics in 48 hours: Opioids/Benzodiazepines in 48 hours: Anticholinergics on board:No Restraints:No Indwelling catheters:Yes - bed bound Last BM: AM today UO in 24 hours: 150ml Activity in the past 24 hours: Need for ambulatory devices: Assessment/Plan Fawn Brown" is a 89 y.o. male on day [...] Goals of Care: -Health care power of claims attorney: Diya () -Living will: present Code status: FULL CODE Geriatric medicine will continue to follow the patient. Thank you for allowing geriatric medicine to be involved in the care of your patient. Geriatric medicine consultation team is available during work hours Sunday through Sunday. For any emergency issues requiring immediate assistance over the weekend, please page Geriatrics pager [phone] Robb Rossi DO PGY3 - Family Medicine [...] SILVANO Daryl Rolleight 650 mg at 05/13/25 0252 bisacodyl (Dulcolax) [...] Therapy Physical Therapy Treatment Patient Name: Fawn Brown" Today's Date: 05/12/2025 Time Calculation Start Time: 1152 Stop Time: 1221 Time Calculation (min): 29 min [id number] Assessment/Plan PT Assessment PT Assessment Results: Decreased [...] light headed. Blood pressure stable. 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 male on day 1 of admission presenting with Fall, initial encounter. TCC contacted by Fatou from [facility] stating that they would be willing to take patient for acute rehab. Fatou requesting OT eval and updated notes during patient's hospital stay. TCC acknowledged request and the informed patient and his spouse of [place]'s acceptance and they were both agreeable to utilizing the facility after discharge. Provider made aware. OT contacted in regards to need for eval and assigned staff to patient. TCC will continue to follow patient for discharge planning. DAMIR Rivers * Yoav Forte MD - 05/12/2025 9:26 AM EDT [facility] TRAUMA SERVICE - PROGRESS NOTE Patient Name: Fawn Cameron Admit Date: [id number] : 1935 AGE: 89 y.o. 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 LOC (yes/no?): Yes Anticoagulant / Anti-platelet Rx? (for what dx?): ASA 81 Referring Facility Name (N/A for scene EMR run): [facility] INJURIES: Right orbital floor Mild buckled fracture [...] DVT ppx: SCDs, subcutaneous lovenox to start 723 AM dosing - GI ppx: Home PPI [...] were you homeless or living in a residential (including now)? N Transportation Needs In the past 12 months, has lack of transportation kept you from medical appointments or from getting medications? no In the past 12 months, has lack of transportation kept you from meetings, work, or from getting things needed for daily living? No Fawn Leigh Nisha "Andres" is a 89 y.o. male on day [...] a supplement and sees Dr. Barrera at [facility]. Patient denies any housing, transportation or financial concerns. Patient made aware of PT's recommendation of high intensity rehab and iswilling to go to acute rehab. TCC gave patient and his a list of nearby acute nursing facilities for review and they selected [facility] and [facility] as their top choices. TCC to send referral via [employer], awaiting response. TCC will continue to follow patient for discharge planning. NOK: Diya Nisha Dialysis: 0 O2: 0 Pharmacy: [facility] (Mail Order) or [facility] Home Health: 0 Iliana Head, TCC * Serina Swanson, PT - 05/11/2025 3:22 PM EDT Physical Therapy Physical Therapy Evaluation & Treatment Patient Name: Andres Cameron Department: [facility] ED Room: [id number] Today's Date: 05/11/2025 Time Calculation Start Time: [...] Prior Function Per Pt/Caregiver Report Level of [place]: Independent with ADLs and functional transfers, Independent [...] he no longer wanted on Outcome Measures: [facility] Basic Mobility Turning from your back to [...] Granda MD - 05/11/2025 1:54 PM EDT [facility] TRAUMA SERVICE - PROGRESS NOTE Patient Name: Fawn Cameron Admit Date: [id number] : 1935 AGE: 89 y.o. 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 LOC (yes/no?): Yes Anticoagulant / Anti-platelet Rx? (for what dx?): ASA 81 Referring Facility Name (N/A for scene EMR run): [facility] INJURIES: Right orbital floor Mild buckled fracture [...] [10-18] BP: (79-139)/(47-73) Height: [167.6 cm (5' 6")] Weight: [66.2 kg (146 lb)] Pulse Ox: [...] PM EDT Pharmacy Medication History Review Fawn Brown" is a 89 y.o. male admitted for No Principal Problem: There is no principalproblem currently on the Problem List. Please update the Problem List and refresh.. Pharmacy reviewed the patient's [id number] medications and allergies for accuracy. The list below reflects the updated [employer] list. Prior to Admission Medications Prescriptions Last [...] Admission MedRec Grid OARRS - none recent [facility] medication dispense report Medications ADDED: None Medications CHANGED: AREDS - updated frequency from Qday to BID Medications REMOVED/MARKED NOT TAKING: None Additional Comments: Patient only took 4 out of 8 methotrexate 2.5 mg tablets on 05/10/25 (takes on Sundays) Kellee Osman PharmD Transitions of Care Pharmacist 05/10/25 Secure Chat preferred If no response call [phone] or Vocera "Med Rec" documented in this [facility] Work Phone: 1(683) 841-814207-30-2025 Nurse Note* Mack Mckinley RN - 05/20/2025 1:24 PM EDT 1324 Report given to ANNA Perez at [facility]. SBAR given. Orders reviewed. grinder set up operator internal timecommunicated and repeated back. [facility]07-30-2025 Nurse Note* Mack Mckinley RN - 05/20/2025 1:24 PM EDT 1324 Report given to ANNA Perez at [facility]. SBAR given. Orders reviewed. grinder set up operator internal timecommunicated and repeated back. * Doyle Greene [...] Primary team was notified. documented in this [facility] Work Phone: 1(554) 812-902307-30-2025 Hospital Discharge instructions* Discharge Instructions* Hien Ramesh PA-C - 05/20/2025 1:09 PM EDT [facility] DISCHARGE INSTRUCTIONS GENERAL INSTRUCTIONS 1) [...] to call our outpatient nurse coordinator at [phone] with any questions/concerns. The nurse will get [...] re-evaluation - Opthalmology: Recommend follow-up with [facility], within 1-2 weeks. Please call [phone] (EYES) to make appointment. - Primary Care Provider: Please follow up with your PCP within 1-2 weeks after discharge regarding your recent hospital admission. If you do not have a primary care provider, you may also call the hospital main number at [phone] and ask for a referral. 6) Please [...] further evaluation and management. documented in this [facility] Work Phone: 1(235) 216-816407-30-2025 Plan of care note* Care Plan - [...] remain free from injury during this shift [facility] Work Phone: 1(964) 360-706207-30-2025 Miscellaneous Notes* Care Plan - Mack Mckinley [...] awaiting to start feeds once pump available, elementary secretary to see pt tomorrow morning and follow [...] excess moisture Outcome: Progressing Flowsheets (Taken 05/13/2025 1712) Prevent/manage excess moisture: Moisturize dry skin Goal: [...] Outcome: Progressing * Hospital Course - Daryl Dickson - 05/12/2025 12:02 AM EDT 89-year-old male 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 Patient was found to have right orbital [...] Iraj Avery MD PGY-1, Department of Neurosurgery [facility] 8:58 AM documented in this [facility] Work Phone: 1(241) 992-314807-30-2025 Plan of care note* Care Plan - [...] remain free from injury during this shift [facility] Work Phone: [phone]) 576-532007-30-2025 Nurse Note* Doyle Greene RN - 05/20/2025 7:47 AM EDT Pt handoff report provided to oncoming nurse to continue to monitor. Pt safety measures in place. [facility]07-30-2025 Plan of care note* Care Plan [...] fall by end of shift Outcome: Progressing [facility] Work Phone: [phone]) 720-927307-29-2025 Plan of care note* Care Plan - [...] by end of the shift Outcome: Progressing [facility]07-28-2025 Plan of care note* Care Plan [...] pain meds throughout the shift Outcome: Progressing [facility] Work Phone: [phone]) 687-790407-27-2025 Plan of care note* Care Plan - Homer Wei RN - 05/17/2025 6:03 PM EDT The patient's goals for the shift include The clinical goals for the shift include remain free from falls Problem: Pain Goal: Takes deep breaths with improved pain control throughout the shift Outcome: Met Goal: Turns in bed with improved pain control throughout the shift Outcome: Met [facility]07-27-2025 Plan of care note* Care Plan [...] pain meds throughout the shift Outcome: Progressing [facility] Work Phone: 1(513) 851-870107-26-2025 Plan of care note* Care Plan - Homer Wei RN - 05/16/2025 6:20 PM EDT The patient's goals for the shift include The clinical goals for the shift include increase feed rate and remain HDS Problem: Safety - Adult Goal: Free from fall injury Outcome: Met Problem: Discharge Planning Goal: Discharge to home or other facility with appropriate resources Outcome: Met [facility] Work Phone: 1(411) 286-490707-26-2025 Note1. Please refer to detailed swallow study evaluation by speech pathologist. 2. No radiographic evidence of acute osseous abnormality within limits of current examination. I personally reviewed the images/study and I agree with the findings as stated by Prakash Jorge MD (residential substance abuse counselor). This study was interpreted at [facility], [place], [place]. MACRO: None Signed by: Antonio Lane 05/16/2025 4:02 PM Dictation workstation: [id number] Consult note* Sherry Coronel RDN, LD - 05/16/2025 9:42 AM EDTAssociated Order(s): IP CONSULT TO NUTRITION SERVICES Nutrition Initial Assessment: Nutrition Assessment Reason for Assessment: Provider consult order, Enteral assessment/recommendation (TF) (Nutrition assessment/recommendation) Patient is a 89 y.o. male presenting with Fall. Medical History[1] Surgical History[2] Nutrition History: Food and Nutrient History: NPO or decreased intake initial 4 days of hospital stay. MINT MACHINE OPERATOR recommendedNPO on 05/14/25. DHT placed 05/15 and Isosource 1.5 initiated @ 10ml/hr with plan to increase by 10mlevery 6hrs to goal of 50ml/hr. Noted per abd x-ray tube ends in proximal duodenum. Patient was lying in bed upon visit this morning. TF running @ 30ml/hr and patient tolerating well. WELDER TOOL AND DIE patient typically ate 3 meals per day [...] macular degeneration) Anthropometrics: Height: 167.6 cm (5' 6") Weight: 66.2 kg (146 lb) BMI (Calculated): [...] Vit B12: Lab Results Component Value Date [id number] 283 05/12/2025 , Iron Panel: Lab Results [...] swallowing diffiuclty obtained upon diet history and MINT MACHINE OPERATOR evaluations Nutrition Interventions/Recommendations Nutrition prescription for enteral [...] lidocaine, ondansetron OR ondansetron, oxyCODONE, oxyCODONE, sennosides [facility]07-26-2025 Consult note* Sherry Coronel RDN, LD - 05/16/2025 9:42 AM EDTAssociated Order(s): IP CONSULT TO NUTRITION SERVICES Nutrition Initial Assessment: Nutrition Assessment Reason for Assessment: Provider consult order, Enteral assessment/recommendation (TF) (Nutrition assessment/recommendation) Patient is a 89 y.o. male presenting with Fall. Medical History[1] Surgical History[2] Nutrition History: Food and Nutrient History: NPO or decreased intake initial 4 days of hospital stay. MINT MACHINE OPERATOR recommendedNPO on 05/14/25. DHT placed 05/15 and Isosource 1.5 initiated @ 10ml/hr with plan to increase by 10mlevery 6hrs to goal of 50ml/hr. Noted per abd x-ray tube ends in proximal duodenum. Patient was lying in bed upon visit this morning. TF running @ 30ml/hr and patient tolerating well. WELDER TOOL AND DIE patient typically ate 3 meals per day [...] macular degeneration) Anthropometrics: Height: 167.6 cm (5' 6") Weight: 66.2 kg (146 lb) BMI (Calculated): [...] Vit B12: Lab Results Component Value Date [id number] 283 05/12/2025 , Iron Panel: Lab Results [...] swallowing diffiuclty obtained upon diet history and MINT MACHINE OPERATOR evaluations Nutrition Interventions/Recommendations Nutrition prescription for enteral [...] Consult Visit Date: 05/13/2025 Patient Name: Fawn Cameron "Andres" Reason for Consult: DTI to buttocks, right [...] 05/13/2025 11:24 AM Wound Image Site Assessment Red;Robinson Griselda-Wound Assessment Dry Wound Length (cm) 2 [...] to linear presentation, likely IV or medical office professional instructor line that caused skin changes. Area still [...] Contact: Diya Cameron Address: [address] [place] [address] [facility] Mobile Relation: Power of Inspector [employer] Typewriter Repairer needed? No Reason For Consult: advanced age, frequent falls History Of Present Illness: Andres Cameron is a 89 y.o. male with h/o AAA, infrarenal aneurysm, HTN, HLD, CAD (on ASA) who presents after an unwitnessed fall on Sunday05/09/25. 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 Workup revealed injuries to the R orbital floor, Mild buckled fracture of the RT anterior cranial floor/orbital roof, Small RT (2 mm) subdural hematoma, Trace right frontal subarachnoid hematoma, Bilateral pubic rami fractures with extension into the acetabular wall, Nondisplaced sacral ala fracture on right. Cardiac workup in the ED was negative for PA or arhythmia. Pt has been evaluated by trauma surgery, orthopedic surgery, ENT and ophthalmology and no surgical intervention has been recommended. PT/OT is recommending high- intensity acute rehab on discharge. 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 Highest Level of Education: Post-Graduate Degree Masters [...] Directive/Living Will: Yes Health Care Power of Inspector Wire Products: Yes Code Status: Full Code Confusion Assessment [...] Results Component Value Date TSH 2.99 09/01/2024 [id number] 314 11/20/2024 Results from last 7 days [...] Clement Estevez 05/09/2025 8:28 AM Dictation workstation: [id number] ECG 12 lead Normal sinus rhythm Normal ECG When compared with ECG of 07-DEC-2023 09:54, Premature atrial complexes are no longer Present See ED provider note for full interpretation and clinical correlation Confirmed by Brandee Hawkins ([id number]) on 05/11/2025 1:16:43 PM XR pelvis With [place] Judet views Narrative: Interpreted By: Wanda Montalvo, and Spenser Jenkins STUDY: XR PELVIS WITH INLET OUTLET JUDET VIEWS; ; 05/11/2025 4:18 am INDICATION: Signs/Symptoms:eval. COMPARISON: CT chest abdomen pelvis 05/10/2025. ACCESSION NUMBER(S): [id number] ORDERING CLINICIAN: LEONARDO BERGER FINDINGS: Five view [...] MD (PGY-3). This study was interpreted at [place], [place]. MACRO: None Signed by: Wanda Montalvo 05/11/2025 5:01 AM Dictation workstation: [id number] XR chest 1 view Narrative: STUDY: Chest Radiograph; 05/11/2025 1:13AM INDICATION: Evaluation for surgery trauma. COMPARISON: 09/23/2022 XR chest ACCESSION NUMBER(S): [id number] ORDERING CLINICIAN: SANTIAGO MENENDEZ TECHNIQUE: Frontal chest [...] and clinical correlation Confirmed by Yolanda Garcia ([id number]) on 05/11/2025 3:47:[address] head wo IV contrast Narrative: Interpreted By: Wanda Montalvo and Omar Mahmoud STUDY: CT HEAD WO IV CONTRAST; 05/10/2025 11:27 pm INDICATION: Signs/Symptoms:Trauma, intracranial bleeding. Stability scan. COMPARISON: CT head without IV contrast 05/10/2025 3:03 p.m.. ACCESSION NUMBER(S): [id number] ORDERING CLINICIAN: CARRI GREER TECHNIQUE: Noncontrast axial [...] MD (PGY-3). This study was interpreted at [place], [place]. MACRO: None Signed by: Wanda Montalvo 05/11/2025 12:03 AM Dictation workstation: [id number] Head/Brain Imaging === Results for orders placed during the hospital encounter of 05/10/25 === CT head wo IV contrast [[id number]] 05/10/2025 Status: Normal Redemonstration of minimally displaced [...] MD (PGY-3). This study was interpreted at [place], [place]. MACRO: None Signed by: Wanda Montalvo 05/11/2025 12:03 AM Dictation workstation: [id number] No results found for this or any previous visit. DATA: EKG: QTC Encounter Date: 05/10/25 ECG 12 lead Result Value Ventricular Rate 72 Atrial Rate 72 AZ Interval 190 QRS Duration 104 QT Interval 394 QTC Calculation(Bazett) 431 P Stella 31 R Stella -15 T Stella 44 QRS Count 12 Q Onset 210 P Onset 115 P Offset 178 T Offset 407 QTC Fredericia 418 Narrative Normal sinus rhythm Normal ECG When compared with ECG of 10-MAY-2025 13:54, No significant change was found See ED provider note for full interpretation and clinical correlation Confirmed by Yolanda Garcia ([id number]) on 05/11/2025 3:47:31 AM Anti-psychotics in 48 [...] Goals of Care: -Health care power of claims attorney: Diya () -Living will: present Code status: FULL CODE Geriatric medicine will continue to follow the patient. Thank you for allowing geriatric medicine to be involved in the care of your patient. Geriatric medicine consultation team is available during work hours Sunday through Sunday. For any emergency issues requiring immediate assistance over the weekend, please page Geriatrics pager [phone] Consult Billing Time Prep time on date [...] (Temporal) Resp 10 Ht 1.676 m (5' 6") Wt 66.2 kg (146 lb) SpO2 95% [...] Dr. Kristy Ramos in 2 weeks. Call [phone] to schedule appointment. - Please don't hesitate to page with questions DISPOSITION: Per primary, pending trial of ambulation This patient was staffed with the attending physician, Dr. Kristy Resendiz MD Orthopedic Surgery PGY-2 [facility] While admitted, this patient will be followed by the Orthopedic Trauma Team. Please contact the residents listed below with any questions. For urgent matters at any time, or for any needs between 6 PM and 6 AM Sunday through Sunday, on weekends, or on holidays, please [place] [phone]. Trauma: First Call: Antonio Guzman, PGY-1/Heike Arzate, [...] Present Illness 89 y.o. male presented to [facility] on 05/10 after sustaining injuries from a [...] (Temporal) Resp 13 Ht 1.676 m (5' 6") Wt 66.2 kg (146 lb) SpO2 97% [...] smoke. You may use saline nasal spray ([place]) and Afrin as needed for congestion and bleeding. If using Afrin please take as permitted on the bottle (for every 3 days of use you must take a 1 day holiday before using it again). Note not final until signed by an attending. Riaz Carrillo MD - PGY2 Otolaryngology - Head and Neck Surgery Head & Neck team phone: [phone] ENT consult pager: [phone] Pediatric ENT pager: [phone] ENT Outpatient scheduling number: [phone] [1] Past Medical History: Diagnosis Date Arthritis [...] Name Age of Onset Heart murmur Mother [place] Obrecht Hyperlipidemia Mother [place] Obrecht Arthritis Mother [place] Obrecht Hearing loss Mother [place] Obrecht Hypertension Mother [place] Obrecht Vision loss Mother [place] Obrecht Other (CARDIAC DISORDER) Father Pneumonia Father [...] orbital fracture History Of Present Illness Fawn Brown" is a 89 y.o. male presenting [facility] and now with right orbital fractures in [...] resp. rate 13, height 1.676 m (5' 6"), weight 66.2 kg (146 lb), SpO2 97%. [...] ophthalmology for dilated eye exam when cleared [phone] Recommend follow-up with [facility], within 1-2 weeks. Please call [phone] (EYES) to make appointment. Thank you for the consult. Please contact the Ophthalmology service with further questions or concerns. Abigail Richardson MD Ophthalmology, PGY-3 Ophthalmology Adult Pager - [phone] Ophthalmology Pediatrics Pager (8am- 5pm) - [phone] For adult follow-up appointments, call: [phone] For pediatric follow-up appointments, call: [phone] NOTE: This note is not finalized until [...] documented in the note. [facility] Work Phone: 1(986) 736-279407-25-2025 Plan of care note* Care Plan - [...] awaiting to start feeds once pump available, elementary secretary to see pt tomorrow morning and follow up. Still on 1L, desats to 88 on RA. Ptvoiding, had a BM, passing gas. Ongoing care, call light within reach, bed alarm in place [facility]07-25-2025 Procedure note* Sharon Silverio RDN, LD [...] with Placement: No Assessments Row Name 05/15/25 8868 Tube Status Clamped Placement Verification X-ray Distal Tube Measurement (cm) 75 cm Site Assessment Clean Response To Intervention No resistance met Tube Securement Nasal bridle Appropriate imaging orders have been placed to check tube placement. [facility]07-25-2025 Procedure note* Sharon Silverio RDN, LD [...] Humphrey - 05/14/2025 2:10 PM EDTAssociated Order(s): 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 SWALLOW EVALUATION Speech-Language Pathology Inpatient Modified Barium Swallow Study Patient Name: Fawn Cameron "Andres" : 1935 Today's Date: 05/14/25 Start Time: 1300 Stop Time: 1335 Time Calculation (min): 35 Modified Barium Swallow Study completed. Informed verbal consent obtained prior to completion of exam. Trials of thin liquids via tsp/straw, mildly (nectar) thick liquids via tsp/straw, moderately (honey) thick liquids via tsp/straw, purees, and regular solids were given. 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 He [...] risk of aspiration w/ continued PO intake MINT MACHINE OPERATOR PLAN: Skilled MINT MACHINE OPERATOR Services: Skilled MINT MACHINE OPERATOR intervention for dysphagia is warranted. MINT MACHINE OPERATOR Frequency: pending GOC decisions made Discussed POC: [...] given on all accounts. Treatment Provided Today: MINT MACHINE OPERATOR provided extensive education and training to pt/pt [...] further evaluation by medical specialists, as applicable. MINT MACHINE OPERATOR Impressions with Severity Rating: Pt awake/alert, consistently cooperative/able to follow commands, and responded appropriately to conversation/questions by MINT MACHINE OPERATOR. Missing dentition noted. Severe oropharyngeal dysphagia. Prolonged [...] residue, NO pt response] After the Swallow [place] Thick Liquids: 8. SILENT ASPIRATION - contrast [...] does not enter airway [facility] Work Phone: 1(239) 242-966507-24-2025 Plan of care note* Care Plan - [...] clinical goals for the shift include 0900 [facility]07-24-2025 Plan of care note* Care Plan [...] place, call light within reach, ongoing care [facility] Work Phone: 1(184) 144-136107-24-2025 Procedure note* FLAVIA Humphrey - 05/14/2025 2:10 PM EDTAssociated Order(s): 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 SWALLOW EVALUATION Speech-Language Pathology Inpatient Modified Barium Swallow Study Patient Name: Fawn Brown" : 1935 Today's Date: 05/14/25 Start Time: 1300 Stop Time: 1335 Time Calculation (min): 35 Modified Barium Swallow Study completed. Informed verbal consent obtained prior to completion of exam. Trials of thin liquids via tsp/straw, mildly (nectar) thick liquids via tsp/straw, moderately (honey) thick liquids via tsp/straw, purees, and regular solids were given. 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 He [...] risk of aspiration w/ continued PO intake MINT MACHINE OPERATOR PLAN: Skilled MINT MACHINE OPERATOR Services: Skilled MINT MACHINE OPERATOR intervention for dysphagia is warranted. MINT MACHINE OPERATOR Frequency: pending GOC decisions made Discussed POC: [...] given on all accounts. Treatment Provided Today: MINT MACHINE OPERATOR provided extensive education and training to pt/pt [...] further evaluation by medical specialists, as applicable. MINT MACHINE OPERATOR Impressions with Severity Rating: Pt awake/alert, consistently cooperative/able to follow commands, and responded appropriately to conversation/questions by MINT MACHINE OPERATOR. Missing dentition noted. Severe oropharyngeal dysphagia. Prolonged [...] risk of aspiration with oral intake. aware. Rosenalexander's Penetration Aspiration Scale Thin Liquids: 8. SILENT ASPIRATION - contrast passes glottis, visible residue, NO pt response] After the Swallow [place] Thick Liquids: 8. SILENT ASPIRATION - contrast [...] no aspiration, contrast does not enter airway [facility] Work Phone: 1([phone]) 980-290107-24-2025 Plan of care note* Care Plan - Arlette Oakley RN - 05/14/2025 12:01 AM EDT The clinical goals for the shift include pts pain ivis remian controlled through shift Problem: Pain - Adult Goal: Verbalizes/displays adequate comfort level or baseline comfort level Outcome: Progressing Problem: Safety - Adult Goal: Free from fall injury Outcome: Progressing [facility]07-23-2025 Nurse Note* Greta Bai RN - 05/13/2025 6:51 PM EDT Pt was eating dinner and told RN he was having trouble swallowing certain foods and coughed and hadto spit them out. RN instructed pt and pts family to no longer eat or drink anything and food/drinkmoved away from patient. Primary team was notified. [facility]07-23-2025 Plan of care note* Care Plan - Greta Bai RN - 05/13/2025 4:58 PM EDT Problem: Skin Goal: Decreased wound size/increased tissue granulation at next dressing change Outcome: Progressing Goal: Participates in plan/prevention/treatment measures Outcome: Progressing Goal: Prevent/manage excess moisture Outcome: Progressing Flowsheets (Taken 05/13/2025 4395) Prevent/manage excess moisture: Moisturize dry skin Goal: [...] pts pain ivis remian controlled through shift [facility] Work Phone: 1(936) 221-245007-23-2025 Consult note* Hayley Chang RN - 05/13/2025 4:57 PM EDTAssociated Order(s): WOUND OSTOMY NURSING CONSULT Images from the original note were not included. Wound Care Consult Visit Date: 05/13/2025 Patient Name: Fawn Cameron "Andres" Reason for Consult: DTI to buttocks, right [...] 05/13/2025 11:24 AM Wound Image Site Assessment Red;Robinson Griselda-Wound Assessment Dry Wound Length (cm) 2 [...] to linear presentation, likely IV or medical office professional instructor line that caused skin changes. Area still [...] injury. Hayley Chang RN 05/13/2025 4:57 PM [facility]07-23-2025 Plan of care note* Care Plan - Arlette Oakley RN - 05/13/2025 12:45 AM EDT The clinical goals for the shift include Patient pain will be managed Problem: Pain - Adult Goal: Verbalizes/displays adequate comfort level or baseline comfort level Outcome: Progressing Problem: Safety - Adult Goal: Free from fall injury Outcome: Progressing [facility] Work Phone: 1(336) 970-541207-22-2025 Consult note* Robb Rossi DO - 05/12/2025 8:48 AM EDTAssociated Order(s): Inpatient consult to Geriatric Medicine Inpatient consult to Geriatric Medicine Consult performed by: Robb Rossi DO Consult ordered by: Kristy Giraldo DO Primary Team: Trauma Admit Date: 05/10/2025 Emergency Contact: Extended Emergency Contact Information Primary Emergency Contact: Diya Cameron [address] [place] [id number] [place] Mobile Relation: Power of Inspector [employer] Typewriter Repairer needed? No Reason For Consult: advanced age, frequent falls History Of Present Illness: Andres Cameron is a 89 y.o. male with h/o AAA, infrarenal aneurysm, HTN, HLD, CAD (on ASA) who presents after an unwitnessed fall on Sunday05/09/25. 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 Workup revealed injuries to the R orbital floor, Mild buckled fracture of the RT anterior cranial floor/orbital roof, Small RT (2 mm) subdural hematoma, Trace right frontal subarachnoid hematoma, Bilateral pubic rami fractures with extension into the acetabular wall, Nondisplaced sacral ala fracture on right. Cardiac workup in the ED was negative for PA or arhythmia. Pt has been evaluated by trauma surgery, orthopedic surgery, ENT and ophthalmology and no surgical intervention has been recommended. PT/OT is recommending high- intensity acute rehab on discharge. 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 Highest Level of Education: Post-Graduate Degree Masters [...] Transportation: I, Medications: I, Handle Finances: I Cameron Scale: 8 Allergies Patient has no known [...] Directive/Living Will: Yes Health Care Power of Inspector [employer] Products: Yes Code Status: Full Code Confusion Assessment [...] Results Component Value Date TSH 2.99 09/01/2024 [id number] 314 11/20/2024 Results from last 7 days [...] Clement Estevez 05/09/2025 8:28 AM Dictation workstation: [id number] ECG 12 lead Normal sinus rhythm Normal ECG When compared with ECG of 07-DEC-2023 09:54, Premature atrial complexes are no longer Present See ED provider note for full interpretation and clinical correlation Confirmed by Brandee Hawkins ([id number]) on 05/11/2025 1:16:43 PM XR pelvis With Inlet Outlet Judet views Narrative: Interpreted By: Wanda Montalvo and Omar Mahmoud STUDY: XR PELVIS WITH INLET OUTLET JUDET VIEWS; ; 05/11/2025 4:18 am INDICATION: Signs/Symptoms:eval. COMPARISON: CT chest abdomen pelvis 05/10/2025. ACCESSION NUMBER(S): [id number] ORDERING CLINICIAN: LEONARDO BERGER FINDINGS: Five view [...] MD (PGY-3). This study was interpreted at [place], [place]. MACRO: None Signed by: Wanda Montalvo 05/11/2025 5:01 AM Dictation workstation: [id number] XR chest 1 view Narrative: STUDY: Chest Radiograph; 05/11/2025 1:13AM INDICATION: Evaluation for surgery trauma. COMPARISON: 09/23/2022 XR chest ACCESSION NUMBER(S): [id number] ORDERING CLINICIAN: SANTIAGO MENENDEZ TECHNIQUE: Frontal chest [...] and clinical correlation Confirmed by Yolanda Garcia ([id number]) on 05/11/2025 3:47:[address] head wo IV contrast Narrative: Interpreted By: Wanda Montalvo and Omar Mahmoud STUDY: CT HEAD WO IV CONTRAST; 05/10/2025 11:27 pm INDICATION: Signs/Symptoms:Trauma, intracranial bleeding. Stability scan. COMPARISON: CT head without IV contrast 05/10/2025 3:03 p.m.. ACCESSION NUMBER(S): [id number] ORDERING CLINICIAN: CARRI GREER TECHNIQUE: Noncontrast axial [...] MD (PGY-3). This study was interpreted at [place], [place]. MACRO: None Signed by: Wanda Montalvo 05/11/2025 12:03 AM Dictation workstation: [id number] Head/Brain Imaging === Results for orders placed during the hospital encounter of 05/10/25 === CT head wo IV contrast [[id number]] 05/10/2025 Status: Normal Redemonstration of minimally displaced [...] MD (PGY-3). This study was interpreted at [place], [place]. MACRO: None Signed by: Wanda Montalvo 05/11/2025 12:03 AM Dictation workstation: [id number] No results found for this or any previous visit. DATA: EKG: QTC Encounter Date: 05/10/25 ECG 12 lead Result Value Ventricular Rate 72 Atrial Rate 72 AZ Interval 190 QRS Duration 104 QT Interval 394 QTC Calculation(Bazett) 431 P Stella 31 R Stella -15 T Stella 44 QRS Count 12 Q Onset 210 P Onset 115 P Offset 178 T Offset 407 QTC Fredericia 418 Narrative Normal sinus rhythm Normal ECG When compared with ECG of 10-MAY-2025 13:54, No significant change was found See ED provider note for full interpretation and clinical correlation Confirmed by Yolanda Garcia ([id number]) on 05/11/2025 3:47:31 AM Anti-psychotics in 48 [...] Goals of Care: -Health care power of claims attorney: Diya () -Living will: present Code status: FULL CODE Geriatric medicine will continue to follow the patient. Thank you for allowing geriatric medicine to be involved in the care of your patient. Geriatric medicine consultation team is available during work hours Sunday through Sunday. For any emergency issues requiring immediate assistance over the weekend, please page Geriatrics pager [phone] Consult Billing Time Prep time on date of patient encounter(minutes): Time directly with patient/family/caregiver(minutes): Documentation time(minutes): TOTAL TIME(minutes): Robb Rossi DO PGY3 Family Medicine [1] Current Facility-Administered Medications Medication Dose Route Frequency Provider Last Rate Last Admin acetaminophen (Tylenol) tablet 650 mg 650 mg oral q6h [facility] Daryl Dickson 650 mg at 05/12/25 0616 [...] before breakfast Daryl Dickson 40 mg at 05/12/25615 polyethylene glycol (Glycolax, Miralax) packet 17 g [...] in this hospital; stay. 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 Patient was found to have right orbital [...] PT/OT and has been recommended SNF placement. 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 Kristy Ramos in 2 weeks. Call [phone] to schedule appointment. - Please don't hesitate to page with questions DISPOSITION: Per primary, pending trial of ambulation This patient was staffed with the attending physician, Dr. Kristy Resendiz MD Orthopedic Surgery PGY-2 [facility] While admitted, this patient will be followed by the Orthopedic Trauma Team. Please contact the residents listed below with any questions. For urgent matters at any time, or for any needs between 6 PM and 6 AM Sunday through Sunday, on weekends, or on holidays, please [place] [phone]. Trauma: First Call: Antonio Guzman, PGY-1/Heike Arzate PGY-1 Second Call: Sally Cutler, PGY-2 Third Call: Chente Ricci, PGY-3 Cosigned by Kristy Ramos MD at 05/11/2025 1:07 PM EDT [facility] Work Phone: 1([phone]) 438-376507-20-2025 Consult note* Riaz Carrillo MD - 05/10/2025 11:49 PM EDTAssociated Order(s): IP CONSULT TO ENT ENT DEPARTMENT CONSULTATION NOTE Name: Fawn Cameron : 1935 Consulting Attending: Carri Greer MD;Leonardo* Reason for Consult: Orbital roof fracture Patient History of Present Illness 89 y.o. male presented to [facility] on 05/10 after sustaining injuries from a [...] (Temporal) Resp 13 Ht 1.676 m (5' 6") Wt 66.2 kg (146 lb) SpO2 97% [...] smoke. You may use saline nasal spray ([place]) and Afrin as needed for congestion and bleeding. If using Afrin please take as permitted on the bottle (for every 3 days of use you must take a 1 day holiday before using it again). Note not final until signed by an attending. Riaz Carrillo MD - PGY2 Otolaryngology - Head and Neck Surgery Head & Neck team phone: [phone] ENT consult pager: [phone] Pediatric ENT pager: [phone] ENT Outpatient scheduling number: [phone] [1] Past Medical History: Diagnosis Date Arthritis [...] Name Age of Onset Heart murmur Mother [place] Obrecht Hyperlipidemia Mother [place] Obrecht Arthritis Mother [place] Obrecht Hearing loss Mother [place] Obrecht Hypertension Mother [place] Obre[place] Vision loss Mother [place] Obrecht Other (CARDIAC DISORDER) Father Pneumonia Father [...] Khoury MD at 05/14/2025 9:31 AM EDT [facility] Work Phone: 1([phone]) 459-564507-20-2025 History and physical note* Daryl Dickson - 05/10/2025 11:22 PM EDT [facility] TRAUMA SERVICE - HISTORY AND PHYSICAL / CONSULT Patient Name: Fawn Cameron Admit Date: [id number] : 1935 AGE: 89 y.o. 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 LOC (yes/no?): Yes Anticoagulant / Anti-platelet Rx? (for what dx?): ASA 81 Referring Facility Name (N/A for scene EMR run): [facility] INJURIES: Right orbital floor Mild buckled fracture [...] ENT, ophthalmology Case discussed with Dr. Enzo Dickson DO, PGY 2 PAST MEDICAL HISTORY: PMH: [...] round and reactive 3 mm Motor Strength Dredge Pumper strength: 5/5 on the right 5/5 on [...] Name Age of Onset Heart murmur Mother [place] Obre[place] Hyperlipidemia Mother [place] Obrecht Arthritis Mother [place] Obrecht Hearing loss Mother [place] Obrecht Hypertension Mother [place] Obrecht Vision loss Mother [place] Obrecht Other (CARDIAC DISORDER) Father Pneumonia Father [...] documented in the note. Kristy Giraldo DO [facility] Work Phone: 1([phone]) 379-145507-20-2025 History and physical note* Daryl Dickson - 05/10/2025 11:22 PM EDT [facility] TRAUMA SERVICE - HISTORY AND PHYSICAL / CONSULT Patient Name: Fawn Cameron Admit Date: [id number] : 1935 AGE: 89 y.o. 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 LOC (yes/no?): Yes Anticoagulant / Anti-platelet Rx? (for what dx?): ASA 81 Referring Facility Name (N/A for scene EMR run): [facility] INJURIES: Right orbital floor Mild buckled fracture [...] round and reactive 3 mm Motor Strength Dredge Pumper strength: 5/5 on the right 5/5 on [...] Name Age of Onset Heart murmur Mother [place] Obrecht Hyperlipidemia Mother [place] Obrecht Arthritis Mother [place] Obrecht Hearing loss Mother [place] Obrecht Hypertension Mother [place] Obre[place] Vision loss Mother [place] Obrecht Other (CARDIAC DISORDER) Father Pneumonia Father [...] note. Kristy Giraldo DO documented [facility] Work Phone: 1([phone]) 152-432607-20-2025 Consult note* Abigail Richardson MD - 05/10/2025 10:07 PM EDTAssociated Order(s): IP CONSULT TO OPHTHALMOLOGY Reason For Consult Right orbital fracture History Of Present Illness Fawn Leigh Nisha "Andres" is a 89 y.o. male presenting [facility] and now with right orbital fractures [...] resp. rate 13, height 1.676 m (5' 6"), weight 66.2 kg (146 lb), SpO2 97%. [...] ophthalmology for dilated eye exam when cleared [phone] Recommend follow-up with [facility], within 1-2 weeks. Please call [phone] (EYES) to make appointment. Thank you for the consult. Please contact the Ophthalmology service with further questions or concerns. Abigail Richardson MD Ophthalmology, PGY-3 Ophthalmology Adult Pager - [phone] Ophthalmology Pediatrics Pager (8am- 5pm) - [phone] For adult follow-up appointments, call: [phone] For pediatric follow-up appointments, call: [phone] NOTE: This note is not finalized until [...] 05/11/2025 8:59 AM EDT Associated attestation - oDn Sanchez MD - 05/11/2025 8:59 AM EDT I was NOT present during the evaluation of the patient. I reviewed the resident/fellow's documentation and discussed the patient with the resident/fellow in more detail as necessary. I agree with theresident/fellow's medical decision making as documented in the note. [facility] Work Phone: [phone]) 213-457507-20-2025 Physician Emergency department Note* Brendan Dougherty, DO - 05/10/2025 9:56 PM EDT CC: Fall History provided by: Patient Limitations to History: None HPI: Patient is a 89-year-old male with a PMH of GERD, hypertension, osteoarthritis, CAD, remote TIA, and infrarenal AAA who presents to the hospital via EMS from [facility] for a chief complaint of fall. Patient [...] Course: ED Course as of 05/15/25 1250 [place] May 10, [id number] Discussed with ophthalmology. They [...] with the documented findings. Carri Greer MD [facility] Work Phone: 1([phone]) 422-808207-20-2025 Emergency department Note* Brendan Dougherty, DO - 05/10/2025 9:56 PM EDT CC: Fall History provided by: Patient Limitations to History: None HPI: Patient is a 89-year-old male with a PMH of GERD, hypertension, osteoarthritis, CAD, remote TIA, and infrarenal AAA who presents to the hospital via EMS from [facility] for a chief complaint of fall. Patient [...] 05/10/2025 9:53 PM EDT Patient transferred to [facility] from [facility] for trauma consult after a fall. 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 Per the hospital footage, fall looks to be mechanical, patient was only down for a few minutes. +LOC with memory loss. Pam goodson was found to have a closed right orbital fx, multiple pelvic fractures and a subdural vs subarachnoid hemorrhage. Patient A&O x4 upon arrival. documented in this [facility] Work Phone: 1(448) 942-674107-20-2025 Emergency department Triage note* Virginia Cavazos RN - 05/10/2025 9:53 PM EDT Patient transferred to [facility] from [facility] for trauma consult after a fall. 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 Per the hospital footage, fall looks to be mechanical, patient was only down for a few minutes. +LOC with memory loss. Pam goodson was found to have a closed right orbital fx, multiple pelvic fractures and a subdural vs subarachnoid hemorrhage. Patient A&O x4 upon arrival. [facility] Work Phone: 1([phone]) 507-807907-20-2025 Physician Emergency department Note* Brandee Hawkins PA-C [...] No treatment, delayed treatment, observation and referral [place] protocol: Procedure explained and questions answered to [...] no immediate complications Brandee Hawkins PA-C 05/10/251906 [facility] Work Phone: [phone] 171-224607-20-2025 Emergency department Note* Brandee Hawkins PA-C - [...] No treatment, delayed treatment, observation and referral [place] protocol: Procedure explained and questions answered to [...] immediate complications Brandee Hawkins PA-C 05/10/25 1907 * Santiago Menendez DO - 05/10/2025 2:42 PM [...] Patient History limited by: 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 Giraldo from [facility] who accepted the patient as a ER [...] Name Age of Onset Heart murmur Mother [place] Obre[place] Hyperlipidemia Mother [place] Obre[place] Arthritis Mother [place] Obrecht Hearing loss Mother [place] Obrecht Hypertension Mother [place] Obrecht Vision loss Mother [place] Obrecht Other (CARDIAC DISORDER) Father Pneumonia Father [...] Menendez DO 05/10/25 1727 documented in this [facility] Work Phone: [phone]) 226-386307-20-2025 Physician Emergency department Note* Santiago Menendez DO [...] Patient History limited by: 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 Giraldo from [facility] who accepted the patient as a ER [...] Name Age of Onset Heart murmur Mother [place] Obre[place] Hyperlipidemia Mother [place] Obrecht Arthritis Mother [place] Obrecht Hearing loss Mother [place] Obrecht Hypertension Mother [place] Obre[place] Vision loss Mother [place] Obrecht Other (CARDIAC DISORDER) Father Pneumonia Father [...] use: Never Santiago Menendez DO 05/10/25 1727 [facility] Work Phone: 1([phone]) 433-807007-18-2025 Reason for visit Narrative* Imaging (Routine) - Authorized Specialty Diagnoses / Procedures Referred By Foster bland Referred To Contact Radiology Diagnoses Neck pain Procedures XR cervical spine 2-3 views Don Barrera MD [address] [address] Phone: tel: fax: Referral ID Status Reason Start Date Expiration Date Visits Requested Visits Authorized [id number] Authorized Perform Procedure 05/07/2025 05/07/2026 1 1 [facility] Work Phone: 1(140) 778-628607-17-2025 History of Present illness Narrative* Don Barrera [...] 120/70 Pulse 71 Ht 1.676 m (5' 6") Wt 66.3 kg (146 lb 3.2 oz) [...] Referral to Physical Therapy documented in this [facility] Work Phone: [phone]) 201-793706-20-2025 History of Present illness Narrative* GINA Dickerson - 04/10/2025 10:55 AM EDT [facility] Lincolnyesi CollierGINA pena Visit Note - 04/10/2025 11:49 AM This [...] has never used smokeless tobacco. 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 CHIEF COMPLAINT: Chief Complaint Patient presents with [...] (97.6 F) (Temporal) Ht 1.676 m (5' 6") Wt 68.5 kg (151 lb) SpO2 97% [...] Sunday.. ,R07.81 Pleurodynia COMPARISON: None. ACCESSION NUMBER(S): [id number] ORDERING CLINICIAN: LINCOLN KING FINDINGS: Cardiac silhouette within normal limits. Mild bibasilar fibrotic stranding. No focal infiltrate, pleural effusion or pneumothorax. Nondisplaced fracture of the anterior left 6th rib. IMPRESSION: Nondisplaced fracture anterior left 6th rib. No pneumothorax. MACRO: None Signed by: Howard Elias 04/10/2025 1:50 PM Dictation workstation: [id number] IMPRESSION/PLAN: Course: Worsening; stable 1. Rib pain [...] agreed with plan of care. 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 Nails 78514 left foot nails 40008 right foot are elongated thickened mycotic crumbling [...] AUTHENTICATED BY ELADIO KINGSLEY JR., ON 04/10/2025 08:19:02[facility] [id number] History of Present illness Narrative* Eladio Kingsley [...] than 5 seconds to distal digits. Nails 43004 left foot nails 08476 right foot are elongated thickened mycotic crumbling [...] for foot nail care documented in this [id number] NoteHNO ID: [id number] Author: DELTA BANGURA MD Service: ? Author [...] Patient was instructed to call the office ([phone]) immediately upon noticing flashes of light, increase [...] and agree with all of its relevant components.[facility]03-21-2025 NotePatient is a pleasant 89-year-old male who [...] than 5 seconds to distal digits. Nails 66775 left foot nails 05603 right foot are elongated thickened mycotic crumbling [...] AUTHENTICATED BY ELADIO KINGSLEY JR., ON 01/09/2025 08:22:08[facility]03-21-2025 History of Present illness Narrative* Eladio Kingsley Jr., DPM - 01/09/2025 8:21 AM EDT Patient is [...] than 5 seconds to distal digits. Nails 29914 left foot nails 70130 right foot are elongated thickened mycotic crumbling [...] for foot nail care documented in this [id number] Evaluation + Plan note* Assessment & Plan Note - Don Barrera MD - 11/20/2024 8:25 AM EST Associated Problem(s): Osteoarthritis Seeing pain medicine physician, epidural steroid injection somewhat helpful with hip pain but not really helpful with low back pain. [facility] Work Phone: [phone] Evaluation + Plan note* Assessment & Plan Note - Don Barrera MD - 11/20/2024 8:25 AM ESTAssociated Problem(s): Inflammatory polyarthropathy (Multi) Follows with rheumatology. [facility] Work Phone: 1([phone] 238-537301-30-2025 Evaluation + Plan note* Assessment & Plan Note - Don Barrera MD - 11/20/2024 8:25 AM ESTAssociated Problem(s): MARIANGEL (generalized anxiety disorder) Stable with medication, interrupting day-to-day life, satisfied with current level of anxiety. [facility] Work Phone: [phone]) 514-711501-30-2025 Miscellaneous Notes* Assessment & Plan Note - [...] 8:24 AM EST Associated Problem(s): Abdominal aneurysm (CMS-HCC) Ultrasound last May was stable. * Assessment & Plan Note - Don Barrera MD - 11/20/2024 8:24 AM EST Associated Problem(s): Hyperlipidemia Thick LDL cholesterol today, continue with current medication. documented in this [facility] Work Phone: 1(308) 857-369401-30-2025 Evaluation + Plan note* Assessment & Plan Note - Don Barrera MD - 11/20/2024 8:24 AM ESTAssociated Problem(s): BPH (benign prostatic hyperplasia) Currently he is stable, does have some nocturia, check PSA at follow-up appointment, could consideradding tamsulosin but concerned about possible dizziness side effect [facility] Work Phone: [phone] Evaluation + Plan note* Assessment & Plan Note - Don Barrera MD - 11/20/2024 8:24 AM ESTAssociated Problem(s): 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 Asymptomatic with medication. [facility] Work Phone: [phone] Evaluation + Plan note* Assessment & Plan Note - Don Barrera MD - 11/20/2024 8:24 AM ESTAssociated Problem(s): Peripheral arterial occlusive disease (CMS-HCC) Complaining of claudication. [facility] Work Phone: [phone]) 933-942101-30-2025 Evaluation + Plan note* Assessment & Plan Note - Don Barrera MD - 11/20/2024 8:24 AM ESTAssociated Problem(s): Hypertension Blood pressure under good control, electrolyte and renal functions recently were normal. [facility] Work Phone: [phone] 270-239701-30-2025 Evaluation + Plan note* Assessment & Plan Note - Don Barrera MD - 11/20/2024 8:24 AM ESTAssociated Problem(s): Abdominal aneurysm (CMS-HCC) Ultrasound last May was stable. [facility] Work Phone: [phone]) 922-893601-30-2025 Evaluation + Plan note* Assessment & Plan Note - Don Barrera MD - 11/20/2024 8:24 AM ESTAssociated Problem(s): Hyperlipidemia Thick LDL cholesterol today, continue with current medication. [facility] Work Phone: [phone] 290-799101-30-2025 History of Present illness Narrative* Don Barrera [...] 110/70 Pulse 65 Ht 1.676 m (5' 6") Wt 69.3 kg (152 lb 12.8 oz) [...] Comprehensive Metabolic Panel Lipid Panel Abdominal aneurysm ([facility]-HCC) I71.40 Ultrasound last May was stable. Relevant [...] Care - Established Peripheral arterial occlusive disease ([facility]) I77.9 Complaining of claudication. Relevant Orders Follow [...] Prostate Specific Antigen, Screen documented in this [facility] Work Phone: 1(728) 840-289312-11-2024 NotePatient is a pleasant 89-year-old male who [...] than 5 seconds to distal digits. Nails 48085 left foot nails 04789 right foot are elongated thickened mycotic crumbling [...] AUTHENTICATED BY ELADIO KINGSLEY JR., ON 10/01/2024 08:32:38[facility] [id number] History of Present illness Narrative* Eladio Kingsley [...] than 5 seconds to distal digits. Nails 10093 left foot nails 83517 right foot are elongated thickened mycotic crumbling [...] for foot nail care documented in this [id number] History of Present illness Narrative* Don Barrera MD - 09/01/2024 11:40 AM EST Subjective Patient ID: Andres Cameron is a 89 y.o. male who presents for Dizzy,shakey. HPI Last week had "event" like in ER in November, has had [...] Pulse (!) 139 Ht 1.676 m (5' 6") Wt 68.3 kg (150 lb 9.6 oz) [...] Mental status is at baseline. Comments: Positive [place]-Hallpike maneuver to the right. Psychiatric: Mood and [...] tablet Other Relevant Orders Holter Or Event Door Hanger CBC and Auto Differential Comprehensive Metabolic Panel TSH with reflex to Free T4 if abnormal ECG 12 Lead (Completed) Palpitations R00.2 Concern today when nurse taking vital signs elevated heart rate, EKG stable, normal exam today, check labs and Holter to rule out A-fib Relevant Medications folic acid (Folvite) 1 mg tablet Other Relevant Orders Holter Or Event Door Hanger CBC and Auto Differential Comprehensive Metabolic Panel TSH with reflex to Free T4 if abnormal ECG 12 Lead (Completed) documented in [facility] Work Phone: 1(889) 325-863509-12-2024 History of Present illness Narrative* Otoniel Salcedo [...] Name Age of Onset Heart murmur Mother [place] O[place] Hyperlipidemia Mother [place] Obre[place] Arthritis Mother [place] Obrecht Hearing loss Mother [place] Obrecht Hypertension Mother [place] Obre[place] Vision loss Mother [place] Obrecht Other (CARDIAC DISORDER) Father Pneumonia Father Physical Examination Vitals: BP 126/62 (BP Location: Right arm, Patient Position: Sitting) Pulse 63 Ht 1.676 m (5' 6") Wt 67.9 kg (149 lb 11.2 oz) [...] months Vascular US [place] [address] ext-2528, Vascular Lab Report [facility] US AORTA ILIAC DUPLEX COMPLETE Patient Name: FAWN CAMERON Reading Physician: [id number] Miller Abdalla MD, RPVI Study Date: 06/17/2024 Ordering Provider: [id number] DON BARRERA MRN/PID: [id number] Fellow: Technologist: Annamaria Cornejo RVEdwina/ Date of /Age: 5 1935 / 89 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: Gender: M Admission Status: Outpatient Location Performed: [facility] Diagnosis/ICD: Abdominal aortic aneurysm, without rupture, unspecified-I71.40 CPT Codes: 53280 Duplex Aorta/IVC/Iliac/Bypass Graft CONCLUSIONS: Aorta/Common Iliac Arteries/IVC: [...] Proximal 1.40 cm 1.30 cm 142.00 cm/s [id number] Miller Abdalla MD, SILVANA Final Impression Fawn [...] Salcedo MD Advanced Heart Failure/Transplant Cardiology Cardio-Oncology [facility] [place] documented in this [facility] Work Phone: 1(231) 898-850508-16-2024 NotePatient is a pleasant 89-year-old male who [...] than 5 seconds to distal digits. Nails 89885 left foot nails 62043 right foot are elongated thickened mycotic crumbling [...] AUTHENTICATED BY ELADIO KINGSLEY JR., ON 06/06/2024 08:21:01[facility]08-16-2024 History of Present illness Narrative* Eladio Kingsley Jr., [facility] - 06/06/2024 8:10 AM EDT Patient is [...] than 5 seconds to distal digits. Nails 64773 left foot nails 72342 right foot are elongated thickened mycotic crumbling [...] for foot nail care documented in this [id number] Instructions* Patient Instructions* Delta Bangura MD - 03/05/2024 10:03 AM EDT Please monitor each eye daily with [employer] Grid. AREDS 2 Vitamins are available over the counter at any drug store. Follow up with Dr. Soria for updated refraction and glasses. Return here in 1 year Patient was instructed to call the office ([phone]) immediately upon noticing flashes of light, increase in floaters, or changes in vision. If you have any questions please contact our office at [phone]. After office hours or on the weekend, please call Dr. Bangura on his cell phone at [phone]. [facility]24 NoteDate of Procedure 03/05/2024. [employer] Paralegal Information Clipper And Turner: TK. Interpretation Right Eye Normal without fluid. Findings include Drusen, RPE Irregularity. Left Eye Abnormal foveal contour. Findings include Drusen, Epiretinal membrane, RPE Irregularity. Interval Change Right Eye Stable. Left Eye Stable.[id number] History of Present illness Narrative* Delta Bangura [...] Patient was instructed to call the office ([phone]) immediately upon noticing flashes of light, increase [...] of its relevant components. [facility] this [facility] History of Present illness Narrative* [...] than 5 seconds to distal digits. Nails 71552 left foot nails 67741 right foot are elongated thickened mycotic crumbling [...] for foot nail care documented in this [id number] History of Present illness Narrative* Sage Kwon MD - 02/12/2024 9:56 AM EDT New Patient Visit [facility] [address], [address], [place] [address] (office) Date of service: 02/12/2024 ID: Fawn Cameron, 88 y.o., male; : 1935 Chief Concerns and reason for consult: Fawn Cameron is a 88 y.o. 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 The patient reports that over the past 6 months, he has had approximately 1 episode a month lastingabout half an hour where he has episodes of "lightheadedness", with some unsteadiness while walking. It takes about 10 to 20 minutes for symptoms to peak from onset. There are no clear provoking or tr iggering factors. These can occur at any position with sitting or standing. The symptoms slowly started to dissipate, and usually resolve within half an hour to an hour. He denies specifically any "room spinning sensation". There is no associated headache, visual symptoms, [...] of abdominal wall, History of cardiac cath, [place] (hard of hearing), Hyperlipidemia, Hypertension, HANNAH (juvenile idiopathic arthritis), polyarthritis, rheumat factor neg ([facility]), Nail disorder, OM (onychomycosis), JOSEFA (obstructive sleep apnea), Osteoarthritis, PAD (peripheral artery disease) ([facility]), and TIA (transient ischemic attack) (12/2020). Past [...] to confrontation. PERRL. Normal conjunctivae and lids. activities aide III, IV and : extraocular movements intact. [...] Achilles 0 0 Babinski Down Down Coordination: Ylhgtb-hw-vyal intact bilaterally. Mild in hands physiologic tremors [...] 6 months (around 08/13/2024). Sage Kwon MD Customer Complaint Service Supervisor Neurologist [facility]. Timed code: 68 minutes [...] and other health records. documented in this [id number] Emergency department Note* Celso Cabezas, - 12/07/2023 [...] Name Age of Onset Heart murmur Mother [place] O[place] Hyperlipidemia Mother [place] Arthritis Mother [place] Hearing loss Mother [place] Hypertension Mother [place] Vision loss Mother [place] O[place] Other (CARDIAC DISORDER) Father Pneumonia Father [...] performed using a different testing methodology at [facility] than at other [facility]. Direct result comparisons should only be made within the same method. URINALYSIS WITH REFLEX CULTURE AND MICROSCOPIC - Normal Color, Urine Straw Appearance, Urine Clear Specific Pella, Urine 1.006 pH, Urine 7.0 Protein, Urine NEGATIVE Glucose, Urine NEGATIVE Blood, Urine NEGATIVE Ketones, Urine NEGATIVE Bilirubin, Urine NEGATIVE Urobilinogen, Urine <2.0 Nitrite, Urine NEGATIVE Leukocyte Esterase, Urine NEGATIVE URINALYSIS WITH REFLEX CULTURE AND MICROSCOPIC Narrative: The following orders were created for panel order Urinalysis with Reflex Culture and Microscopic. Procedure Abnormality Status --------- ------ Urinalysis with Reflex C...[[id number]] Normal Final result Extra Urine Callaway Tube[[id number]] In process Please view results for these [...] Kvng Meléndez 12/07/2023 12:24 PM Dictation workstation: [id number] Medical Decision Making: Patient appears well nontoxic. [...] ED Physician in the absence of a chief relay tester: yes Comments: EKG interpreted by Dr. Celso Cbaezas: Normal sinus rhythm at 69 bpm. AZ interval 170 ms. QTc of437 ms. PACs. Celso Cabezas DO 12/07/23 1250 documented in this [facility] Work Phone: [phone]) 386-325302-16-2024 Physician Emergency department Note* Celso Cabezas DO [...] murmur Mother Cierra Obrecjorje Hyperlipidemia Mother Cierra Obrecht Arthritis Mother Cierra Obrecjorje Hearing loss Mother Cierra Obrecht Hypertension Mother Cierra Obrecht Vision loss Mother Cierra Obrecht Other (CARDIAC DISORDER) Father Pneumonia Father [...] performed using a different testing methodology at [facility] than at other [facility]. Direct result comparisons should only be made within the same method. URINALYSIS WITH REFLEX CULTURE AND MICROSCOPIC - Normal Color, Urine Straw Appearance, Urine Clear Specific Pella, Urine 1.006 pH, Urine 7.0 Protein, Urine NEGATIVE Glucose, Urine NEGATIVE Blood, Urine NEGATIVE Ketones, Urine NEGATIVE Bilirubin, Urine NEGATIVE Urobilinogen, Urine <2.0 Nitrite, Urine NEGATIVE Leukocyte Esterase, Urine NEGATIVE URINALYSIS WITH REFLEX CULTURE AND MICROSCOPIC Narrative: The following orders were created for panel order Urinalysis with Reflex Culture and Microscopic. Procedure Abnormality Status --------- ------ Urinalysis with Reflex C...[[id number]] Normal Final result Extra Urine Callaway Tube[[id number]] In process Please view results for these [...] Kvng Meléndez 12/07/2023 12:24 PM Dictation workstation: [id number] Medical Decision Making: Patient appears well nontoxic. [...] ED Physician in the absence of a chief relay tester: yes Comments: EKG interpreted by Dr. Celso Cabezas: Normal sinus rhythm at 69 bpm. AZ interval 170 ms. QTc of437 ms. PACs. Celso Cabezas DO 12/07/23 1250 [facility] Work Phone: [phone] Reason for referral (narrative)* Consultation (Routine) - Authorized Specialty Diagnoses / Procedures Referred By Foster bland Referred To Contact Otolaryngology Celso Cabezas DO [address] [place] [address] Department [place] [address] Referral ID Status Reason Start Date Expiration Date Visits Requested Visits Authorized [id number] Authorized Specialty Services Required 12/07/2023 12/06/2024 1 1 * Consultation (Routine) - Authorized Specialty Diagnoses / Procedures Referred By Foster bland Referred To Contact Family Medicine / Primary Care Celso Cabezas DO [address] [place] [address] [place] [address] Referral ID Status Reason Start Date Expiration Date Visits Requested Visits Authorized [id number] Authorized Specialty Services Required 12/07/2023 12/06/2024 1 1 [facility] Work Phone: [phone]) 700-284602-09-2024 History of Present illness Narrative* Eladio Kingsley [...] than 5 seconds to distal digits. Nails 50912 left foot nails 16155 right foot are elongated thickened mycotic crumbling [...] for foot nail care documented in this [id number] History of Present illness Narrative* Daysi Arenas, - 11/15/2023 8:15 AM EST Subjective Patient ID: Fawn Brown" is a 88 y.o. male who presents [...] DO 11/15/23 8:27 AM [facility]: [phone]) 601-425401-25-2024 Reason for referral (narrative)* Consultation (Routine) - Authorized Specialty Diagnoses / Procedures Referred By Foster bland Referred To Contact Family Medicine / Primary Care Bhargavi Feliciano PA-C [address] [place] [id number] Referral ID Status Reason Start Date Expiration Date Visits Requested Visits Authorized [id number] Authorized Specialty Services Required 11/15/2023 11/14/2024 1 1 [facility] Work Phone: [phone]) 656-587501-21-2024 Hospital Discharge instructions* Discharge Instructions* Sai Myers MD - 11/11/2023 10:19 PM EST Recommend contacting your primary care physician's office tomorrow. [facility] Work Phone: [phone]) 132-675501-15-2024 Evaluation + Plan note* Assessment & Plan Note - Don Barrera MD - 11/05/2023 12:36 PM ESTAssociated Problem(s): MARIANGEL (generalized anxiety disorder) Patient uncomfortable with anxiety, some trouble sleeping at night, able to accomplish day-to-day activities without difficulty, try low-dose sertraline. [facility] Work Phone: [phone] 620-540501-15-2024 Evaluation + Plan note* Assessment & Plan Note - Don Barrera MD - 11/05/2023 12:36 PM ESTAssociated Problem(s): Lumbosacral spondylosis Patient requested to see pain management again. [facility] Work Phone: [phone] 541-771701-15-2024 Miscellaneous Notes* Assessment & Plan Note - [...] claudication. Carotid ultrasound up-to-date. documented in this [facility] Work Phone: [phone]) 972-195201-15-2024 Evaluation + Plan note* Assessment & Plan Note - Don Barrera MD - 11/05/2023 12:35 PM ESTAssociated Problem(s): BPH (benign prostatic hyperplasia) Currently stable no change. [facility] Work Phone: [phone] 820-790501-15-2024 Evaluation + Plan note* Assessment & Plan Note - Don Barrera MD - 11/05/2023 12:35 PM ESTAssociated Problem(s): 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 To have esophagram done tomorrow, following with gastroenterology, taking PPI twice a day, no longer taking Carafate, dysphagia depends on diet. [facility] Work Phone: [phone]) 584-470401-15-2024 Evaluation + Plan note* Assessment & Plan Note - Don Barrera MD - 11/05/2023 12:35 PM ESTAssociated Problem(s): Hypertension Blood pressure under good control renal function stable, no change. [facility] Work Phone: [phone] Evaluation + Plan note* Assessment & Plan Note - Don Barrera MD - 11/05/2023 12:35 PM ESTAssociated Problem(s): Abdominal aneurysm (CMS/HCC) Ultrasound stable within the past year. [facility] Work Phone: [phone] Evaluation + Plan note* Assessment & Plan Note - Don Barrera MD - 11/05/2023 12:35 PM ESTAssociated Problem(s): Hyperlipidemia Taking and tolerating pravastatin, liver function testing normal, no change. [facility] Work Phone: [phone] Evaluation + Plan note* Assessment & Plan Note - Don Barrera MD - 11/05/2023 12:34 PM ESTAssociated Problem(s): Inflammatory polyarthropathy (CMS/HCC) Follows with rheumatology on a regular basis. [facility] Work Phone: [phone] Evaluation + Plan note* Assessment & Plan Note - Don Barrera MD - 11/05/2023 12:34 PM ESTAssociated Problem(s): Peripheral arterial occlusive disease (CMS/HCC) No active signs or symptoms of claudication. Carotid ultrasound up-to-date. [facility] Work Phone: [phone] History of Present illness Narrative* Don Barrera [...] clinic in the past, had MRI in [facility], [facility] helped in the past, not helping [...] 130/62 Pulse 65 Ht 1.676 m (5' 6") Wt 70.9 kg (156 lb 6.4 oz) [...] In Primary Care - Established Abdominal aneurysm (CMS/HCC) I71.40 Ultrasound stable within the past year. Hypertension - Primary I10 Blood pressure under good control renal function stable, no change. Relevant Orders Comprehensive Metabolic Panel Follow Up In Primary Care - Established Lumbosacral spondylosis M47.817 Patient requested to see pain management again. 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 Carotid ultrasound up-to-date. 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 male who presents for GERD and Dysphagia (X 2 months Breads, scalloped potatoes, cloth drier foods. ). GERD He reports no [...] DO 11/01/23 1:18 PM [facility] Work Phone: [phone] History of Present illness Narrative* Eladio Kingsley Jr., DPM - 10/31/2023 8:13 AM EST Left medial [...] acute on chronic nature. documented in this [id number] History of Present illness Narrative* Eladio Kingsley [...] and set for 2 minutes. Utilizing an Indian anvil and 6100 blade, the nail medially [...] antiplatelet risk with aspirin. documented in this [id number] Instructions* Patient Instructions* Ayana Bojorquez, TECHNOLOGIST - [...] daily until follow-up appointment. documented in this [id number] History of Present illness Narrative* Eladio Kingsley Jr., DP - 10/12/2023 8:22 AM EST Patient is [...] medical complexity decision making. documented in this [id number] History of Present illness Narrative* Clark Lees PA-C - 10/06/2023 11:35 AM EST [facility] NOTE: Name: Fawn Cameron, 88 y.o. CSN:[id number] PCP: Don Barrera MD ALL: No Known [...] Ketones, Urine NEGATIVE NEGATIVE mg/dl POC Specific Pella, Urine 1.015 1.005 - 1.035 POC Blood, [...] available. Clark Lees PA-C Advanced Practice Provider [facility] documented in this [facility] Work Phone: [phone] 314-824112-16-2023 Instructions* Patient Instructions* Clark Lees PA-C - [...] actually leaking urine. It is also called "urge incontinence." Talk to your doctor or nurse before trying bladder training on your own. They will want to make sure that you do it correctly. They might also want to check for other problems, such as a urinary tract infection. What is a bladder diary? Bladder training involves trying to increase the amount of time between trips to the toilet. A "bladder diary" is a way to keep track of how often you go (form 1). Doctors sometimes call this a "voiding diary." In the diary, write down: ?The time [...] avoid going to the bathroom beforeleaving home "just in case." This can train your brain to think [...] blood in your urine. [facility] Work Phone: [phone] Evaluation + Plan note* Assessment & Plan Note - Don Barrera MD - 09/28/2023 4:10 PM ESTAssociated Problem(s): 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 Patient with increasing refluxing, burping belching, advised to increase PPI to twice daily for thenext week, Co. prescribe Carafate for the next week to 10 days, call if not improving, sent for EGD. [facility] Work Phone: [phone] 206-100712-08-2023 Miscellaneous Notes* Assessment & Plan Note - Don Barrera MD - 09/28/2023 4:10 PM ESTAssociated Problem(s): 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 Patient with increasing refluxing, burping belching, advised to increase PPI to twice daily for thenext week, Co. prescribe Carafate for the next week to 10 days, call if not improving, sent for EGD. [facility] Work Phone: [phone] 394-746512-08-2023 History of Present illness Narrative* Don Barrera [...] 120/66 Pulse 78 Ht 1.676 m (5' 6") Wt 72.1 kg (159 lb) SpO2 96% [...] Orders Referral to Gastroenterology documented in this [facility] Work Phone: [phone] Instructions* Patient Instructions* Don Barrera MD - 09/28/2023 2:20 PM EST Take omeprazole twice a day for the next week, add Carafate for the next week and we are going to take a look at your stomach documented in this [facility] Work Phone: [phone] History of Present illness Narrative* Robb Colindres [...] with PSA 1 year [facility] Work Phone: [phone] 342-435011-08-2023 Instructions* Patient Instructions* Delta Bangura MD - 08/29/2023 10:15 AM EST Please monitor each eye daily with [employer]ler Grid. AREDS 2 Vitamins are available over the counter at any drug store. -continue: Blink tears artificial tears- 1 drop three times a day Both eyes . Please call the office ([phone]) immediately if you notice more flashes of light, a sudden increase in floaters, or a sudden change in vision. If you have any questions please contact our office at [phone]. After office hours or on the weekend, please call Dr. Bangura on his cell phone at [phone]. [facility] History of Present illness Narrative* [...] 379.21, ICD10: H43.813 -Please call the office ([phone]) immediately if you notice more flashes of [...] options. Delta Bangura MD' documented [facility] Emergency department Note * Sai [...] then. States currently he feels a little "woozy "but his dizziness has resolved. [place] Coma Scale Score: 15 Patient History Past [...] use: Defer Physical Exam ED Triage Vitals [07/22/232148] Temp Heart Rate Resp BP 36.5 C [...] his BP being elevated. [facility] Work Phone: [phone] 920-125210-01-2023 Emergency department Triage note* ANNIE Albarran - [...] was due to his BP being elevated. [facility] Work Phone: [phone] Physician Emergency department Note* Sai Myers MD [...] then. States currently he feels a little "woozy "but his dizziness has resolved. Vanessa Coma Scale [...] use: Defer Physical Exam ED Triage Vitals [07/22/232148] Temp Heart Rate Resp BP 36.5 C [...] Procedure Procedures Sai Myers MD 07/23/23 0100 [facility] Work Phone: [phone] 624-509908-10-2023 Evaluation + Plan note* Assessment & Plan [...] office if the injection is not helpful. [facility] Work Phone: [phone] 306-614208-10-2023 Miscellaneous Notes* Assessment & Plan Note - [...] injection is not helpful. documented in this [facility] Work Phone: [phone] History of Present illness Narrative* Don Barrera [...] 120/60 Pulse 64 Ht 1.651 m (5' 5") Wt 72 kg (158 lb 12.8 oz) [...] injection is not helpful. documented in this [facility] Work Phone: [phone] Evaluation + Plan note* Assessment & Plan Note - Don Barrera MD - 05/04/2023 10:19 AM EDTAssociated Problem(s): BPH (benign prostatic hyperplasia) Some symptoms, not inhibiting day-to-day activities. [facility] Work Phone: [phone] 675-325907-14-2023 Miscellaneous Notes* Assessment & Plan Note - [...] continue with current medication. documented in this [facility] Work Phone: [phone] 402-665007-14-2023 Evaluation + Plan note* Assessment & Plan Note - Don Barrera MD - 05/04/2023 10:18 AM EDTAssociated Problem(s): Peripheral arterial occlusive disease (CMS/HCC) Check abdominal ultrasound to evaluate AAA. [facility] Work Phone: [phone] 792-641007-14-2023 Evaluation + Plan note* Assessment & Plan Note - Don Barrera MD - 05/04/2023 10:18 AM EDTAssociated Problem(s): Hypertension Blood pressure under good control, no change with medication. [facility] Work Phone: [phone] Evaluation + Plan note* Assessment & Plan Note - Don Barrera MD - 05/04/2023 10:18 AM EDTAssociated Problem(s): Abdominal aneurysm (CMS/HCC) Check ultrasound to evaluate for any change. Last ultrasound was a year ago. [facility] Work Phone: [phone] 999-274607-14-2023 Evaluation + Plan note* Assessment & Plan Note - Don Barrera MD - 05/04/2023 10:18 AM EDTAssociated Problem(s): Hyperlipidemia Laboratory testing is normal, continue with current medication. [facility] Work Phone: [phone] History of Present illness Narrative* Don Barrera [...] General Don Barrera MD as PCP - [facility] Attributed Provider Review of Systems Constitutional: [...] 116/60 Pulse 61 Ht 1.651 m (5' 5") Wt 71.5 kg (157 lb 11.2 oz) [...] aorta anuerysm AAA screening documented in this [facility] Work Phone: [phone] 464-845305-03-2023 Instructions* Patient Instructions* Delta Bangura MD - 02/21/2023 8:42 AM EDT Continue: Blink tears three times a day Both eyes If you have any questions please contact our office at [phone]. After office hours or on the weekend, please call Dr. Bangura on his cell phone at [phone]. documented in [facility] History of Present illness Narrative* [...] 379.21, ICD10: H43.813 -Please call the office ([phone]) immediately if you notice more flashes of [...] options. Delta Bangura MD documented in this [facility]04-[facility]-2023 History of Present illness Narrative* [...] than 5 seconds to distal digits. Nails 45832 left foot nails 58268 right foot are elongated thickened mycotic crumbling [...] for foot nail care documented in this [id number] History of Present illness Narrative* Eladio Kingsley [...] than 5 seconds to distal digits. Nails 00235 left foot nails 50263 right foot are elongated thickened mycotic crumbling [...] for foot nail care documented in this [id number] History of Present illness Narrative* No headache, [...] summer, some urine urge [facility] Work Phone: [phone] 131-639810-28-2022 History of Present illness Narrative* Eladio Kingsley [...] than 5 seconds to distal digits. Nails 00262 left foot nails 64672 right foot are elongated thickened mycotic crumbling [...] for foot nail care documented in this [id number] History of Present illness Narrative* Eladio Kingsley [...] than 5 seconds to distal digits. Nails 17169 left foot nails 52564 right foot are elongated thickened mycotic crumbling [...] for foot nail care documented in this [id number] Telephone encounter Note* Telephone Encounter - Jagdish Soto MA - 02/17/2022 1:46 PM EDT Received refill request for metoprolol tart 25 mg bid 180/3. Pt's last OV was 05/09/21. Follow up isdue yearly thanks. [id number] Miscellaneous Notes* Telephone Encounter - Jagdish Soto MA - 02/17/2022 1:46 PM EDT Received refill request for metoprolol tart 25 mg bid 180/3. Pt's last OV was 05/09/21. Follow up isdue yearly thanks. documented in this [id number] History of Present illness Narrative* Eladio Kingsley [...] than 5 seconds to distal digits. Nails 08816 left foot nails 70214 right foot are elongated thickened mycotic crumbling [...] for foot nail care documented in this [id number] History of Present illness Narrative* On a scale of 0 to 10, the patient rates the pain at 1. * Pain Location: L thigh. * Pain Quality: Aching and Burning. * Timing/Duration: Intermittent and > 12 weeks duration. [facility] Phone: [phone] History of Present illness Narrative* Eladio Kingsley [...] than 5 seconds to distal digits. Nails 61696 left foot nails 87613 right foot are elongated thickened mycotic crumbling [...] for foot nail care documented in this [id number] History of Present illness Narrative* On a scale of 0 to 10, the patient rates the pain at 1. * now and 8/10 at its worst. * Pain Location: lt front lateral thigh. * Pain Quality: Aching and Sharp. * Pain Radiation: in lt groin. * Sensory/ Motor: Pins and [place] and bilat lower extremitis from bilat claves [...] patient is using relaxationwith positive response. [facility] Work Phone: [phone] History of Present illness Narrative* Vijay Viveros MD - 07/02/2021 7:06 AM EDT (Incomplete)This note is in progress. Dictation on: 07/02/2021 7:08 AM by: VIJAY VIVEROS [[id number]] documented in this [id number] History of Present illness Narrative* Vijay Viveros [...] is going to do physical therapy at [employer] where he works. I will see him in 6 monthsfor a year checkup. documented in this [id number] History of Present illness Narrative* Eladio Kingsley [...] than 5 seconds to distal digits. Nails 72583 left foot nails 73250 right foot are elongated thickened mycotic crumbling [...] for foot nail care documented in this [id number] History of Present illness NarrativeYealry w/PSA..Most recent [...] no recent sx...ED is chronic. No UTI [facility] Work Phone: [phone] History of Present illness Narrative* Heather Paredes MD - 05/09/2021 10:14 AM EDT Patient Name: Fawn Cameron MR #: [id number] Interventional Cardiology Heather Paredes MD, [facility] 05/09/21 Dear Don Barrera MD, Fawn Cameron was seen in follow up for : Problem Bradycardia Hyperlipidemia Coronary Artery Disease Involving [place] Coronary Artery of [place] Heart Without Angina Pectoris 2005-Occluded RCA mild diffuse other-- same in 2010 and did EECP 2019-stress ok pre op Assessment and Plan Coronary artery disease involving [place] coronary artery of [place] heart without angina pectoris Doing well, Medications [...] of abdominal wall History of cardiac cath [place] (hard of hearing) Hyperlipidemia Hypertension HANNAH (juvenile idiopathic arthritis), polyarthritis, 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 documented in this [id number] Miscellaneous Notes* Assessment & Plan Note - [...] EDT Associated Problem(s): Coronary artery disease involving [place] coronary artery [place] heart without angina pectoris Doing well, Medications reviewed and recommended to continue asa Followup 1 year documented in this [id number] History of Present illness Narrative3 weeks with open area L ear, had treated 3 years ago with ENT, + [facility] Work Phone: [phone] History of Past illness Narrative* Problem Noted Date Resolved Date Other vitreous opacities - Both Eyes 11/18/2014 12/30/2015 Tear film insufficiency, unspecified - Both Eyes 11/18/2014 12/30/2015 Lens replaced by other means - Both Eyes 015 12/30/2015 S/P laser cataract surgery - Both Eyes 5 12/30/2015 documented as of this encounter (statuses as of 02/21/2023) [facility]01-28[facility] History of Past illness Narrative* Problem Noted Date Diagnosed Date Resolved Date Other vitreous opacities - Both Eyes 11/18/2014 12/30/2015 Tear film insufficiency, uns pecified - Both Eyes 11/18/2014 12/30/2015 Lens replaced by other means - Both Eyes 11/18/2014 12/30/2015 S/P laser cataract surgery - Both Eyes 11/18/2014 12/30/2015 documented as of this encounter (statuses as of 08/30/2023) [facility] Author Karri Howell [facility] Note Date/Time June 17, 2025 4: 37pm [facility] Medical Records Department [address] [place] [id number] Anesthesia Postop Eval I 06/17/25 1636 MR#: [id number] Acct: [id number] Name: FAWN CAMERON Rep #:[id number] 1 : 1935 89 From: Karri CANDELARIA PCP: Dr. Devan Barrera MD Status:RE G SDC Y Race: C Location: [place] [address] Anesthesia: Postop Eval I Current Vital Signs Temperature: 98.1 F Pulse Rate: 79 Blood Pressure: 110/65 Respiratory Rate: 16 Pulse Ox: 95 Assessment Airway patent: Yes Spontaneous unlabored respirations: Yes nausea: No Vomiting: No Anesthesia Complication: No Fluid Hydration Crystalloid volume administer (ml): 500 Total IV fluid infused: 500 Progress Note Anesthesia document: Postop Eval 1 completed: Yes 06/17/25 4547 <Electronically signed by Karri Howell CRNA> Date _ Karri Howell CRNA Cosigner Signature: Date CC: ~ Signed [facility] Work Phone: Evaluation note* Diagnosis Callus of foot Corns and callosities OM (onychomycosis) Dermatophytosis of nail PAD (peripheral artery disease) (HCC) Unspecified peripheral vascular disease [facility] Coronary artery disease involving [place] coronary artery of [place] heart without angina pectoris- Primary [facility] Diagnosis Coronary artery disease involving [place] coronary artery of [place] heart without angina pectoris Mixed hyperlipidemia Bradycardia [...] vascular disease, unspecified [facility] Diagnosis OM (onychomycosis)- Primary Dermatophytosis of nail PAD (peripheral artery disease) (HCC) Unspecified peripheral vascular disease [facility] Diagnosis OM (onychomycosis)- Primary Dermatophytosis of nail Peripheral vascular disease, unspecified (HCC) Peripheral vascular disease, unspecified [facility] Diagnosis Onychomycosis- Primary Dermatophytosis of nail Peripheral vascular disease, unspecified (HCC) Peripheral vascular disease, unspecified documented in [facility] encounter [facility]* Diagnosis Onychomycosis- Primary Dermatophytosis of nail Peripheral vascular disease, unspecified (HCC) Peripheral vascular disease, unspecified [facility]* Diagnosis Epiretinal membrane (ERM) of left eye- Primary Nonexudative age-related macular degeneration, bilateral, early dry stage PVD (posterior vitreous detachment), bilateral Pseudophakia of both eyes Lens replaced by other means Essential hypertension Unspecified essential hypertension Hypercholesteremia Pure hypercholesterolemia Osteoarthritis, unspecified osteoarthritis type, unspecified site [facility]* Diagnosis Routine general medical examination at [...] without rupture (CMS/HCC) documented in this encounter [facility] Work Phone: Evaluation note* Diagnosis Chronic right shoulder pain- Primary Pain in joint, shoulder region documented in this encounter [facility] Work Phone: Evaluation note* Diagnosis Dizziness- Primary Dizziness and giddiness Vertigo Dizziness and giddiness documented in this encounter [facility] Work Phone: Evaluation note* Diagnosis Epiretinal membrane (ERM) of left eye- Primary Nonexudative age-related macular degeneration, bilateral, early dry stage PVD (posterior vitreous detachment), bilateral Pseudophakia of both eyes Lens replaced by other means Essential hypertension Unspecified essential hypertension Hypercholesteremia Pure hypercholesterolemia [facility]* Diagnosis Benign prostatic hyperplasia with lower urinary tract symptoms, symptom details unspecified Nocturia Erectile dysfunction, unspecified erectile dysfunction type Urinary frequency Nocturia associated with benign prostatic hyperplasia documented in this encounter [facility] Work Phone: Evaluation note* Diagnosis 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- Primary Esophageal reflux documented in this encounter [facility] Work Phone: [phone] note* Diagnosis Urinary frequency- Primary Dysuria documented in this encounter [facility] Work Phone: [phone] note* Diagnosis Ingrown nail- Primary Ingrowing nail [...] esophagitis Esophageal reflux documented in this encounter [facility] Work Phone: [phone] note* Diagnosis Primary hypertension- Primary Unspecified essential [...] (CMS/HCC) 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 documented in this encounter [facility] Work Phone: [phone] note* Diagnosis 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 Esophageal reflux Hiatal hernia Diaphragmatic hernia without mention of obstruction or gangrene documented in this encounter [facility] Work Phone: [phone] note* Diagnosis 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- Primary Esophageal reflux Hiatal hernia Diaphragmatic hernia without mention of obstruction or gangrene documented in this encounter [facility] Work Phone: [phone] note* Diagnosis Dizziness- Primary Dizziness and giddiness Generalized weakness documented in this encounter [facility] Work Phone: [phone] note* Diagnosis Onychomycosis- Primary Dermatophytosis of nail PAD (peripheral artery disease) (HCC) Unspecified peripheral vascular disease [facility]* Diagnosis Dizziness- Primary Dizziness and giddiness documented in this encounter [facility] Work Phone: Evaluation note* Diagnosis Vestibular migraine- Primary [facility]* Diagnosis Onychomycosis- Primary Dermatophytosis of nail PAD (peripheral artery disease) (HCC) Unspecified peripheral vascular disease [facility] Diagnosis Nonexudative age-related macular degeneration, [...] Anxiety state, unspecified [facility]* Diagnosis Pain in right shoulder documented in this encounter [facility] Work Phone: Evaluation note* Diagnosis Dizziness- [...] Infrarenal abdominal aortic aneurysm (AAA) without rupture ([facility]-HCC) Chronic right shoulder pain- Primary Pain [...] or radiculitis, unspecified documented in this encounter [facility] Work Phone: Evaluation note* Diagnosis Dizziness- [...] Unspecified inflammatory polyarthropathy Ath[place] heart disease of [place] coronary artery w/o ang pctrs TIA (transient ischemic attack) Unspecified transient cerebral ischemia 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), and cerebral infarction without residual deficits documented in this encounter [facility] Work Phone: Evaluation note* Diagnosis Dizziness- [...] Infrarenal abdominal aortic aneurysm (AAA) without rupture ([facility]-HCC) Chronic right shoulder pain- Primary Pain [...] visual aura Palpitations documented in this encounter [facility] Work Phone: Evaluation note* Diagnosis Dizziness- [...] Infrarenal abdominal aortic aneurysm (AAA) without rupture ([facility]-HCC) Chronic right shoulder pain- Primary Pain [...] (CMS-HCC) Unspecified peripheral vascular disease Abdominal aneurysm ([facility]-HCC) 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 [...] and giddiness Palpitations documented in this encounter [facility] Work Phone: Evaluation note* Diagnosis Coronary artery disease involving [place] coronary artery of [place] heart without angina pectoris- Primary 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 Mixed hyperlipidemia Mixed hyperlipidemia 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 Mixed hyperlipidemia Bradycardia Other specified cardiac dysrhythmias Onychomycosis- Primary Dermatophytosis of nail Peripheral vascular disease, unspecified (HCC) Peripheral vascular disease, unspecified [facility] Diagnosis Dizziness- Primary Dizziness and giddiness [...] region and thigh documented in this encounter [facility] Work Phone: Evaluation note* Diagnosis Dizziness- [...] without rupture (CMS-HCC) documented in this encounter [facility] Work Phone: Evaluation note* Diagnosis Dizziness- [...] Unspecified inflammatory polyarthropathy [place] heart disease of [place] coronary artery w/o ang pctrs- Primary TIA (transient ischemic attack) Unspecified transient cerebral ischemia 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 documented in this encounter [facility] Work Phone: Evaluation note* Diagnosis Dizziness- [...] neoplasm of prostate documented in this encounter [facility] Work Phone: Evaluation note* Diagnosis Coronary artery disease involving [place] coronary artery of [place] heart without angina pectoris- Primary 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 Mixed hyperlipidemia Mixed hyperlipidemia 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 Mixed hyperlipidemia Bradycardia Other specified cardiac dysrhythmias Onychomycosis- Primary Dermatophytosis of nail Peripheral vascular disease, unspecified [facility] Diagnosis Coronary artery disease involving [place] coronary artery of [place] heart without angina pectoris- Primary 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 Mixed hyperlipidemia Mixed hyperlipidemia 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 Mixed hyperlipidemia Bradycardia [...] on left side documented in this encounter [facility] Work Phone: Evaluation note* Diagnosis Dizziness- [...] on left side documented in this encounter [facility] Work Phone: Evaluation note* Diagnosis Dizziness- [...] pain- Primary Cervicalgia documented in this encounter [facility] Work Phone: Evaluation note* Diagnosis Dizziness- [...] Neck pain Cervicalgia documented in this encounter [facility] Work Phone: Evaluation note* Diagnosis Dizziness- [...] initial encounter (Multi) documented in this encounter [facility] Work Phone: Evaluation note* Diagnosis Dizziness- [...] by other means documented in this encounter [facility] Work Phone: Evaluation note* Diagnosis Dizziness- [...] symptom details unspecified documented in this encounter [facility] Work Phone: Evaluation note* Diagnosis Dizziness- [...] Dysphagia, unspecified type documented in this encounter [facility] Work Phone: Evaluation note* Diagnosis Dizziness- [...] (Multi) Subdural hemorrhage documented in this encounter [facility] Work Phone: History of Present [...] has some chronic LBP [facility] Work Phone: History of Present [...] of motion/joint mobility, strength and transfers. [facility] Work Phone: History of Present illness Narrative* Patient ID confirmed using Name and . * Patient wearing mask throughout session today d/t COVID-19 precautions. * Patient with good tolerance to treatment, no c/o increased pain/discomfort in clinic. [facility] Work Phone: History of Present [...] just completing them with L UE. [facility] Work Phone: History of Present illness Narrative* Patient ID confirmed using Name and . * Patient wearing mask throughout session today d/t COVID-19 precautions. * Patient with good tolerance to treatment, no c/o increased pain/discomfort in clinic. Patient making progress with shoulder strength as indicated by increased resistance this session. [facility] Work Phone: History of Present illness NarrativePatient was identified by name and date. Reviewed HEP. He was able to progress reps with corestability exercises without c/o. Instructed in thera cane for self massage techniques to cont in HEP. He voiced good understanding. [facility] Work Phone: Hisonec of Present illness Narrative* No headache, chest [...] (less frequent than prior [facility] Work Phone: History of Present [...] medicine for lumbar radiculopathy [facility] Work Phone: History of Present [...] dizziness or lightheadedness. Normotensive in clinic today. [id number] Work Phone: History of Present illness Narrative* [...] * Seen pain medicine for lumbar radiculopathy [facility] Work Phone: History of Present [...] dizziness or lightheadedness. Normotensive in clinic today. [id number] Work Phone: Hospital Discharge instructionsAdditional Instructions Discharge home with 07/16/2025, [facility] Work Phone: Instructions* Name Dates Details Instructions not documented [id number] Work Phone: Reason for referral (narrative)* Consultation (Routine) - Authorized Specialty Diagnoses / Procedures Referred By Foster bland Referred To Contact Gastroenterology Diagnoses 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 Don Barrera MD [address] [place] [address] Referral ID Status Reason Start Date Expiration Date Visits Requested Visits Authorized [id number] Authorized Specialty Services Required 09/28/2023 09/27/2024 1 1 Scheduling Instructions Arrange for EGD with [facility] Work Phone: Reason for referral (narrative)* [...] Primary Care - Established Don Barrera MD [address] [place] [address] Referral ID Status Reason Start Date Expiration Date V isits Requested Visits Authorized [id number] Authorized 11/05/2023 11/04/2024 1 1 * Consultation (Routine) - Authorized Specialty Diagnoses / Procedures [facility] Referred To Contact Pain Medicine Diagnoses Osteoarthritis of spine with radiculopathy, lumbosacral region Don Barrera MD [address] [place] [address] Mack Toribio MD [address] [place] [address] Referral ID Status Reason Start Date Expiration Date Visits Requested Visits Authorized [id number] Authorized Consult and Treat 11/05/2023 11/04/2024 1 1 [facility] Work Phone: reason for referral (narrative)No reason for referral information availableWPremier [facility] Work Phone: reason for visit Narrative* Initial Evaluation . lumbar DJD; S/P RTSR done Aug. * Referred by: [facility] Work Phone: reason for visit Narrative* Cardiovascular (Routine) - Authorized Specialty Diagnoses / Procedures Referred By [facility] t Referred To Contact Cardiology Diagnoses Vertigo Palpitations Procedures Holter Or Event Door Hanger Don Barrera MD [address] [place] [address] Phone: tel: fax: Referral ID Status Reason Start Date Expiration Date V isits Requested Visits Authorized [id number] Authorized 09/01/2024 09/01/2025 1 1 [facility] Work Phone: reason for visit Narrative* Imaging (Emergency) - Authorized Specialty Diagnoses / Procedures [facility] Referred To Contact Radiology Diagnoses Rib pain on left side Procedures XR ribs 2 views left w chest pa or ap Lincoln King, [employer] [address] [place] [address] Phone: tel: fax: Referral ID Status Reason Start Date Expiration Date Visits Requested Visits Authorized [id number] Authorized Perform Procedure 04/10/2025 04/10/2026 1 1 [facility] Work Phone: Assessments Diagnosis Coronary artery disease invo [place] coronary artery of [place] heart without angina pectoris Diagnosis Arthritis of right hip- Primary 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 Diagnosis Coronary artery disease involving [place] coronary artery of [place] heart without angina pectoris Mixed hyperlipidemia Diagnosis Arthritis of left hip- Primary Diagnosis Status post left hip replacement Nontraumatic complete tear of left rotator cuff Diagnosis Nontraumatic complete tear of left rotator cuff Diagnosis Nontraumatic complete tear of left rotator cuff Rotator cuff arthropathy, left Diagnosis Rotator cuff arthropathy, left Diagnosis Coronary artery disease involving [place] coronary artery of [place] heart without angina pectoris Diagnosis Status post [...] on: 04/28/2019 12:38 PM by: VIJAY VIVEROS [[id number]] documented in this encounter* Heather Paredes MD - 05/19/2019 10:42 AM EDT Patient Name: Fawn Cameron MR #: [id number] Interventional Cardiology Heather Paredes MD, [facility] 05/19/19 Dear Don Barrera MD, Fawn Cameron was seen in follow up for : Problem Hyperlipidemia Coronary Artery Disease Involving [place] Coronary Artery of [place] Heart Without Angina Pectoris 2005-Occluded RCA mild diffuse other-- same in 2011 and did EECP Assessment and Plan Coronary artery disease involving [place] coronary artery of [place] heart without angina pectoris Good year no [...] disease) Chest pain GERD (gastroesophageal reflux disease) [place] (hard of hearing) Hyperlipidemia Hypertension HANNAH (juvenile idiopathic arthritis), polyarthritis, 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) JOSEFA (obstructive sleep apnea) Physical exam: BP 139/73 Pulse 60 Ht 5' 8" Wt 78.3 kg (172 lb 9.6 oz) [...] on: 07/14/2019 5:16 PM by: VIJAY VIVEROS [[id number]] documented in this encounter* Vijay Viveros MD [...] on: 12/15/2019 5:04 PM by: VIJAY VIVEROS [[id number]] documented in this encounter* Santiago Bates MD - 02/24/2020 11:26 AM EDT Dictation on: 02/24/2020 11:30 AM by: SANTIAGO BATES [[id number]] documented in this encounter* Santiago Bates MD - 04/27/2020 10:10 AM EDT Dictation on: 04/27/2020 10:11 AM by: SANTIAGO BATES [[id number]] documented in this encounter* Santiago Bates MD [...] on: 06/15/2020 11:37 AM by: SANTIAGO BATES [[id number]] documented in this encounter* Vijay Viveros MD - 08/21/2020 10:43 AM EDT Dictation on: 08/21/2020 10:45 AM by: VIJAY VIVEROS [[id number]] documented in this encounter* Santiago Bates MD - 10/12/2020 12:13 PM EST Dictation on: 10/12/2020 12:15 PM by: SANTIAGO BATES [[id number]] documented in this encounter* Ann Villagomez LISW - 09/11/2019 3:27 PM EST COMPLEX DISCHARGE Date: 09/11/2019 Time: 4:51 PM Patient Name: Fawn Cameron Date of : 1935 Sex: Male Patient discharged to home today with [facility]. Gloria at [facility] notified of patient discharge. No further discharge needs identified. Case closed. Discharge Plan Shared UM/CC and RN Living Arrangements: Spouse/significant other Support Systems: Spouse/significant other Functional Status: Independent Type of Residence: Private residence Prior to Admission Home Care Services: No Regulatory Documentation: BPCI Bundle Letter Regulatory Documentation Status: Certified(went over paper with patient ) [facility] Disposition D/C Disposition: Home Health Care Services Related to Current Admission?: Yes Agency/Destination: [facility] Home Care Needs : Home health [...] home therapyon home nursing. D 09/11/2019 14:14 [id number] 09/11/2019 14:26 MCB/MODL * Tiffanie Kam, [facility] [facility] - 09/11/2019 11:49 AM EST Physical Therapy [...] via walker Home Equipment: Wheeled Walker, Cane, Laundry Machine Mechanic Additional Comments: Been using walker for past few nights to practice before sx, otherwise indep with no AD Prior Level of Function Level of [place]: Independent with ADLs and functional transfers Lives [...] on: 07/13/2020 9:36 AM by: SANTIAGO BATES [[id number]] documented in this encounter* Vijay Viveros MD [...] FoundDocuments on File Type Date Recorded Patient Honey Liquefier Expl anation Power of Inspector Wire Products Date Activated Date Inactivated Comments 09/10/2019 12:24 PM Latest Code Status on File Code Status Date Activated Date Inactivated Comments Full Code 09/10/2019 12:24 PM Documents on File Type Date Recorded Patient Honey Liquefier Expl anation Advance Directives and Living Will Documents on File Type Date Recorded Patient Honey Liquefier Expl anation Advance Directives and Living Will Documents on File Type Date Recorded Patient Honey Liquefier Expl anation Advance Directives and Livin g Will 09/10/2019 8:11 AM Power of Inspector Wire Products Latest Code Status on File Code Status Date Activated Date Inactivated Comments Full Code 09/10/2019 12:24 PM Documents on File Type Date Recorded Patient Honey Liquefier Expl anation Advance Directives and Livin g Will 09/10/2019 8:11 AM Power of Inspector Wire Products Documents on File Type Date Recorded Patient Honey Liquefier Expl anation Advance Directives and Livin g Will 12/10/2019 9:11 AM Power of Inspector Wire Products Documents on File Type Date Recorded Patient Honey Liquefier Expl anation Advance Directives and Livin g Will 12/10/2019 9:11 AM Power of Inspector Wire [employer] Documents on File Type Date Recorded Patient Honey Liquefier Expl anation Advance Directives and Livin g Will 03/08/2020 12:00 AM Power of Inspector Wire Products Documents on File Type Date Recorded Patient Honey Liquefier Expl anation Advance Directives and Livin g Will 03/08/2020 12:00 AM Power of Inspector Wire Products Documents on File Type Date Recorded Patient Honey Liquefier Expl anation Advance Directives and Livin g Will 09/10/2019 8:11 AM Documents on File Type Date Recorded Patient Honey Liquefier Expl anation Advance Directives and Livin g Will 08/19/2019 7:32 AM Documents on File Type Date Recorded Patient Honey Liquefier Expl anation Power of Inspector Wire Products Advance Directives and Livin g Will 03/08/2020 12:00 AM Documents on File Type Date Recorded Patient Honey Liquefier Expl anation Power of Inspector Wire Products Advance Directives and Livin g Will 03/08/2020 12:00 AM Latest Code Status on File Date Activated Date Inactivated Comments 09/10/2019 12:24 PM Latest Code Status on File Code Status Date Activated Date Inactivated Comments Full Code 09/10/2019 12:24 PM Documents on File Type Date Recorded Patient Honey Liquefier Expl anation Living Will 04/20/2016 Documents on File Type Date Recorded Patient Honey Liquefier Expl anation Living Will 04/20/2016 Date Activated [...] you have a Healthcare Pow er of Inspector Wire Products? Yes May 21, 2025 4:00pm Name of Medical Power of Inspector Wire Products Diya Cameron, May 21, 2025 4:00pm Advance Directive Response Recorded Date/ Time Do you have a Healthcare Pow er of Inspector Wire Products? Yes May 21, 2025 4:00pm Name of Medical Power of Inspector Wire Products Diya Cameron, May 21, 2025 4:00pm Do you have a Healthcare Pow er of Inspector Wire Products? No June 16, 2025 3:44pm Documents on File Type Date Recorded Patient Honey Liquefier Expl anation Advance Directives and Living Will [...] Documents on File Type Date Recorded Patient Honey Liquefier Expl anation Advance Directives and Living Will [...] Arthritis of left hip Vijay Viveros MD [address] [place] [address] Status Reason Specialty Diagnoses / Procedures Referre d By Contact Referred To Contact Closed Radiology Diagnoses Nontraumatic complete tear of left rotator cuff Procedures MR Shoulder Left Without Contrast Vijay Viveros MD [address] [place] [address] Status Reason Specialty Diagnoses / Procedures Referred By Contact Referred To Contact Authorized Home Health Services Diagnoses Status post total replacement of left hip Vijay Viveros MD [address] [place], [place] [id number] Status Reason Specialty Diagnoses / Procedures Referre d By Contact Referred To Contact Closed Radiology Diagnoses Arthritis of left hip Procedures CT Hip Left Without Contrast Vijay Viveros MD [address] [place], [place] [address] [id number] Status Reason Specialty Diagnoses / Procedures Referred By Contact Referred To Contact Authorized Cardiology Diagnoses Coronary artery disease involving [place] coronary artery of [place] heart without angina pectoris Procedures ECG 12 Lead Heather Paredes MD [address] [facility] [address] [place] [address] Specialty Diagnoses / Procedures Referred By Contac t Referred To Contact Cardiology Diagnoses Infrarenal abdominal aortic aneurysm (AAA) without rupture ([facility]) Procedures Vascular US abdominal aorta anuerysm AAA screening Don Barrera MD [address] [place] [address] Referral ID Status Reason Start Date Expiration Date Visits Requested Visits Authorized [id number] Authorized Perform Procedure 05/04/2023 10/31/2023 1 1 Specialty Diagnoses / Procedures Referred By Contac t Referred To Contact Orthopaedic Surgery / Orthopedic Surgery Diagnoses Chronic right shoulder pain Procedures Joint Injection Large/Arthrocentesis: R subacromial bursa Don Barrera MD [address] [place] [address] Referral ID Status Reason Start Date Expiration Date V isits Requested Visits Authorized [id number] Authorized 05/31/2023 11/27/2023 1 1 Specialty Diagnoses / Procedures Referred By Contac t Referred To Contact Radiology Diagnoses 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 Hiatal hernia Procedures [place] GI esophagram Daysi Arenas, DO [address] [facility] [address] [place] [address] Referral ID Status Reason Start Date Expiration Date Visits Requested Visits Authorized [id number] Pending Review Perform Procedure 11/01/2023 10/31/2024 1 1 Specialty Diagnoses / Procedures Referred By Contac t Referred To Contact Radiology Diagnoses Pain in right shoulder Procedures XR shoulder right 2+ views Mack Toribio MD [address] [place] [address] Referral ID Status Reason Start Date Expiration Date Visits Requested Visits Authorized [id number] Authorized Perform Procedure 03/27/2024 03/27/2025 1 1 Specialty Diagnoses / Procedures Referred By Contac t Referred To Contact Radiology Diagnoses Radiculopathy, lumbar region Procedures MR pelvis wo IV contrast Mack Toribio MD [address] [place] [address] Referral ID Status Reason Start Date Expiration Date Visits Requested Visits Authorized [id number] Authorized Perform Procedure 07/17/2024 07/17/2025 1 1 Specialty Diagnoses / Procedures Referred By Contac t Referred To Contact Radiology Diagnoses Radiculopathy, lumbar region Procedures MR lumbar spine wo IV contrast Mack Toribio MD [address] [place] [address] Referral ID Status Reason Start Date Expiration Date Visits Requested Visits Authorized [id number] Authorized Perform Procedure 07/17/2024 07/17/2025 1 1 Specialty Diagnoses / Procedures Referred By Contac t Referred To Contact Cardiology Diagnoses 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 Procedures Transthoracic Echo (TTE) Complete [place] ECHO TTHRC R-T 2D W/WOM-MODE COMPL SPEC&COLR D Otoniel Salcedo MD [address] [address] Referral ID Status Reason Start Date Expiration Date Visits Requested Visits Authorized [id number] Authorized Perform Procedure 07/03/2024 07/03/2025 1 1 Specialty Diagnoses / Procedures Referred By Contac t Referred To Contact Radiology Diagnoses Left hip pain Procedures XR hip left with pelvis when performed 2 or 3 views Don Barrera MD [address] [place] [address] Referral ID Status Reason Start Date Expiration Date Visits Requested Visits Authorized [id number] Authorized Perform Procedure 06/12/2024 06/12/2025 1 1 Discharge Instructions * Attachments The following attachments cannot be sent through Care Everywhere. * Hip Replacement: Total: General Info (Indian) * Indwelling Urinary Catheter Care: General Info (Indian) documented in this encounter Chief Complaint 6 [...] LESION6 MO F/U REV LABSpt here to est care. pt was an [facility] pt. no complaints6 MO F/U REV LABS6 [...] the event of a Fluress shortage, administer Kosse-Fluor 1 drop into both eyes as directed [...] the event of a Fluress shortage, administer Kosse-Fluor 1 drop into both eyes as directed for applanation tonometry Given 08/29/2023 10:00 AM EST 1 Drop PHENYLephrine 2.5 % 1 Drop (AK-DILATE, JEFFREY-SYNEPHRINE) 1 Drop, BOTH EYES, DIRECTED, Starting on Sun08/29/23 at 1000, Until Sun08/29/23 at 215, Administer for dilation PROTECT FROM LIGHT Given 08/29/2023 10:00 AM EST 1 Drop proparacaine 0.5 % 1 Drop (ALCAINE) 1 Drop, BOTH EYES, DIRECTED, Starting on Sun08/29/23 at 1000, Until Sun08/29/23 at 215, Administer for pneumo tonometry, tonopen tonometry, or pachymetry. In the event of a proparacaine shortage, administer tetracaine 0.5% ophthalmic drops 1 drop in the left eye as directed for pneumo tonometry, tonopen tonometry, or pachymetry Given 08/29/2023 10:00 AM EST 1 Drop tropicamide 1 % 1 Drop (MYDRIACYL) 1 Drop, BOTH EYES, DIRECTED, Starting on Sun08/29/23 at 1000, Until Sun08/29/23 at 215, Administer for dilation Given 08/29/2023 10:00 AM [...] content) Associated Problem(s): Coronary artery disease involving [place] coronary artery of [place] heart without angina pectoris Patient has been doing very well since being evaluated in the emergency room, without any discomforts that he had previously. 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 We will continue watching clinically and no further workup is needed at this point timein this encounter Associated Problem(s): Hyperlipidemia Per PCP Associated Problem(s): Coronary artery disease involving [place] coronary artery of [place] heart without angina pectoris Good year no [...] PACU without intraoperative complication. D 09/10/2019 13:49 [id number] 09/10/2019 14:24 MCB/MODL Brief Post Operative Note Patient Name: Fawn Cameron : 1935 (84 y.o.) Date of Service: 09/10/2019 [facility]: [id number] Procedure(s): Left Total Hip Replacement Robotic Pre-Operative Diagnoses: * left hip arthritis Post-Operative Diagnoses: * Arthritis of left hip [M16.12] Surgeon(s) and Role: * Vijay Viveros MD - Primary Anesthesiologist: Gracie Valencia MD Anesthesiologist Documentation Designer: [employer] Cureman: Lincoln Burt RN; Madiha Cummins RN Forensic Science Technician: Ijeoma Ruvalcaba, TECHNOLOGIST Scrub Person: Lea Pantoja, ANNA BIOGEOGRAPHER: Madina Martin RN Operative findings: djd Intra and immediate post-operative complications: none Type of anesthesia used: Spinal Estimated blood loss: 200 mL Estimated urine output: 0 mL Specimen(s): ID Type Source Tests Collected by Time Destination A : Bone Femoral Head, Left TISSUE EXAM Vijay Viveros MD 09/10/2019 1044 Implant(s): Implant Name Type Inv. Item Serial No. Poultry Processing Supervisor Lot No. LRB No. Used Action CUP 54MM CLUSTER MILIAN TRIDENT PSL - [id number] CUP 54MM CLUSTER MILIAN TRIDENT PSL IZABEL OR [id number] Left 1 Implanted INSERT 36MM 10DEG F COMP X3 TRIDENT - [id number] INSERT 36MM 10DEG F COMP X3 TRIDENT IZABEL OR [id number] Left 1 Implanted STEM 127DEG SZ6 FEM ACCOLADE II - [id number] STEM 127DEG SZ6 FEM ACCOLADE II IZABEL OR [id number] Left 1 Implanted HEAD 36MM 5MM V40 FEM LFIT ANATOMIC - [id number] HEAD 36MM 5MM V40 FEM LFIT ANATOMIC [...] Shoulder Left Without Contrast Vijay Viveros MD [address] [place] [address] Reason Comments Follow-up Status Reason Specialty Diagnoses / Procedures Referred By Contact Referred To Contact Closed Radiology Diagnoses Coronary artery disease involving [place] coronary artery of [place] heart without angina pectoris Procedures NM Myocardial Perfusion Study Single - Stress Only NM Myocardial Perfusion Multiple SPECT Heather Paredes MD [address] [facility] [address] [place] [address] Reason Comments Follow-up Suture / Staple Removal Status Reason Specialty Diagnoses / Procedures Referre d By Contact Referred To Contact Diagnoses 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 Specialty Diagnoses / Procedures Referred By Contac t Referred To Contact Gastroenterology Diagnoses 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 Don Barrera MD [address] [place] [address] Referral ID Status Reason Start Date Expiration Date Visits Requested Visits Authorized [id number] Authorized Specialty Services Required 09/28/2023 09/27/2024 1 1 Reason Comments 6 mo labs Specialty Diagnoses / Procedures Referred By Contac t Referred To Contact Radiology Diagnoses 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 Hiatal hernia Procedures ME GI esophagram Daysi Arenas, DO [address] [facility], [address] [place] [address] Referral ID Status Reason Start Date Expiration Date Visits Requested Visits Authorized [id number] Pending Review Perform Procedure 11/01/2023 10/31/2024 1 [...] tigue, hot flashes, feeling like he is "floating" since Sunday. Pt was seen here two days ago for same symptoms. While in triage he noted being dizzy. Reason Comments Dizziness Dizziness with H/A f or 2 days. Unsteady on his feet. Denies visual disturbances. HX of TIA. Has had these symptoms before Reason Comments Migraine "Ocular migraine sin ce 1987." with patient. Specialty Diagnoses / Procedures Referred By Contrenetta t Referred To Contact Neurology Diagnoses Migraine with visual aura Dizziness Auras Don Barrera MD [address] [place] [address] Sage Kwon MD [facility] [address] [address] Referral ID Status Reason Start Date Expiration Date Visits Re quested Visits Authorized [id number] Closed 12/20/2023 12/19/2024 1 1 Reason Comments Epiretinal Membrane Follow Up Left Eye Macular Degeneration Follow Up Nonexudat derrell Both Eyes Specialty Diagnoses / Procedures Referred By Contac t Referred To Contact Radiology Diagnoses Pain in right shoulder Procedures XR shoulder right 2+ views Mack Toribio MD [address] [place] [address] Referral ID Status Reason Start Date Expiration Date Visits Requested Visits Authorized [id number] Authorized Perform Procedure 03/27/2024 03/27/2025 1 1 Reason Comments Nail Care Patient is here for nail care. DLS by Dr Barrera was 06/03/2024. Specialty Diagnoses / Procedures Referred By Contac t Referred To Contact Radiology Diagnoses Radiculopathy, lumbar region Procedures MR pelvis wo IV contrast Mack Toribio MD [address] [place] [address] Referral ID Status Reason Start Date Expiration Date Visits Requested Visits Authorized [id number] Authorized Perform Procedure 07/17/2024 07/17/2025 1 1 Specialty Diagnoses / Procedures Referred By Contac t Referred To Contact Radiology Diagnoses Radiculopathy, lumbar region Procedures MR lumbar spine wo IV contrast Mack Toribio MD [address] [place] [address] Referral ID Status Reason Start Date Expiration Date Visits Requested Visits Authorized [id number] Authorized Perform Procedure 07/17/2024 07/17/2025 1 1 Specialty Diagnoses / Procedures Referred By Contac t Referred To Contact Cardiology Diagnoses 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 Procedures Transthoracic Echo (TTE) Complete [place] ECHO TTHRC R-T 2D W/WOM-MODE COMPL SPEC&COLR D Otoniel Salcedo MD [address] [place] [address] Dr Ingrid Maher, [address] [address] Referral ID Status Reason Start Date Expiration Date Visits Requested Visits Authorized [id number] Authorized Perform Procedure 07/03/2024 07/03/2025 1 1 Reason Comments Dizzy,shakey Specialty Diagnoses / Procedures Referred By Contac t Referred To Contact Radiology Diagnoses Left hip pain Procedures XR hip left with pelvis when performed 2 or 3 views Don Barrera MD [address] [place] [address] Referral ID Status Reason Start Date Expiration Date Visits Requested Visits Authorized [id number] Authorized Perform Procedure 06/12/2024 06/12/2025 1 1 Specialty Diagnoses / Procedures Referred By Contac t Referred To Contact Cardiology Diagnoses Abdominal aneurysm ([facility]) Infrarenal abdominal aortic aneurysm (AAA) without rupture ([facility]) Procedures Vascular US aorta iliac duplex complete Vascular US aorta iliac duplex limited Don Barrera MD [address] [place] [address] Referral ID Status Reason Start Date Expiration Date Visits Requested Visits Authorized [id number] Pending Review Perform Procedure 06/12/2024 06/12/2025 1 [...] Expiration Date V isits Requested Visits Authorized [id number] Authorized 05/19/2024 05/19/2025 1 1 Reason Comments [...] Multi Trauma Procedures [place] [address] [place] [address] Phone: tel: fax: [facility] [address] [place] [address] Phone: tel: fax: Referral ID Status Reason Start Date Expiration Date Visits Re quested Visits Authorized [id number] 1 1 Reason Comments Hosp F/U Fall Reason Comments Medicare Annual Wellness Visit Subsequen t 2 wk ck Specialty Diagnoses / Procedures Referred By Contac t Referred To Contact Primary Care Diagnoses Primary hypertension 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 Procedures Follow Up In Primary Care - Established Don Barrera MD [address] [place] [address] Phone: tel: fax: Referral ID Status Reason Start Date Expiration Date V isits Requested Visits Authorized [id number] Authorized 07/17/2025 07/17/2026 1 1 Reason Comments [...] hematoma (Multi) [place] [address] [place] [address] Phone: tel: fax: [facility] [address] [address] [place] [address] Phone: tel: Referral ID Status Reason Start Date Expiration Date Visits Re quested Visits Authorized [id number] 1 1 (unrecognized sect ion and content) No Status Records FoundNo Status Records FoundNo Status Records FoundNo Status Records FoundNo Status Records FoundNo Status Records FoundNo Status Records FoundNo Status Records FoundNo Status Records FoundNo Status Records FoundNo Status Records FoundNo Status Records FoundNo Status Records FoundNo Status Records Found INFORMATION SOURCE (unrecogn ized section and content) DATE CREATED AUTHOR 05/25/2019 [facility] DATE CREATED AUTHOR AUTHOR'S ORGANIZ ATION 09/26/2019 [facility] DATE CREATED AUTHOR AUTHOR'S ORGANIZ ATION 03/07/[address] [facility] DATE CREATED AUTHOR AUTHOR'S ORGANIZ ATION 05/13/2023 [facility] DATE CREATED AUTHOR AUTHOR'S ORGANIZ ATION 06/22/2023 [facility] DATE CREATED AUTHOR AUTHOR'S ORGANIZ ATION 03/12/2025 [facility] DATE CREATED AUTHOR AUTHOR'S ORGANIZ ATION 04/13/2025 [facility] DATE CREATED AUTHOR AUTHOR'S ORGANIZ ATION 05/19/2025 [facility] DATE CREATED AUTHOR AUTHOR'S ORGANIZ ATION 07/23/2025 [facility] DATE CREATED AUTHOR AUTHOR'S ORGANIZ ATION 07/25/2025 [facility] DATE CREATED AUTHOR AUTHOR'S ORGANIZ ATION 08/02/[address] [facility] DATE CREATED AUTHOR AUTHOR'S ORGANIZ ATION 08/07/2025 [facility] DATE CREATED AUTHOR AUTHOR'S ORGANIZ ATION 08/09/2025 [facility] DATE CREATED AUTHOR AUTHOR'S ORGANIZ ATION 08/09/2025 [facility] Visit Details Home Health Visit - Care Blake n (unrecognized section and content) Visit Type -WELDER TO[employer] DIE Routine Visi t Discipline -Physical Therapy Problems [...] ambulating in home with using FWW and PA at all times. Challenged patient with stepping [...] Goal:Pain management goal Completed Instruct { PATIENT CAREGIVER:[id number]} on medications and alternative strategies to relieve pain. Instruct prevention of pressure ulcers Problem:Prevention of Skin Breakdown - Pressure Ulcer Goal:HH/[facility] Goal Completed Instruct on fall prevention Problem:Risk of Falls Goal:Balance/Fall risk goal Completed Obtain pulse oximetry Problem:Skilled Assessment Goal:Rehospitalizati on joint replacement goal Completed SN/SIGNAL INSPECTOR obtain vital signs Problem:Skilled Assessment Goal:Rehospitalizati on joint replacement goal Completed Teaching - disease process Problem:Skilled Assessment Goal:Rehospitalizati on joint replacement goal Completed Skilled observation and assessment general assessment Problem:Skilled Assessment Goal:Rehospitalizati on joint replacement goal Completed Visit Details Visit Type -[facility] of Care Discipline -Penitentiary Interventions Intervention Associated [...] Assessment Goal:Rehospitalizatio n joint replacement goal Completed SN/SIGNAL INSPECTOR obtain vital signs Problem:Skilled Assessment Goal:Rehospitalizatio n [...] ambulating in home with using FWW and PA at all times. Challenged patient with stepping [...] Assessment Goal:Rehospitalizati on joint replacement goal Completed SN/SIGNAL INSPECTOR obtain vital signs Problem:Skilled Assessment Goal:Rehospitalizati on [...] Assessment Goal:Rehospitalizati on joint replacement goal Completed SN/SIGNAL INSPECTOR obtain vital signs Problem:Skilled Assessment Goal:Rehospitalizati on [...] ambulating in home with using FWW and PA at all times. Challenged patient with stepping [...] Registered Dietitian, Student Medical Social Work 09/12/2019 Active 1 goal linked to scheduled/documented intervention 1 goal intervention scheduled/documented in this visit Risk of Falls Disciplines: Penitentiary, Physical Therapy, Occupational Therapy, Speech Therapy, Home Health Aide, Medical Social Work, Spiritual Care, Art Therapy, Massage Therapy, Registered Dietitian, Student Miew Social Work 09/12/2019 Active 1 goal linked [...] his with this. Narratives Patient goes by "Andres". 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 He has seen his chief relay tester, who has given him the all clear [...] roles. 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 The patient's education level is a table cut off saw operator, compliance is a table cut off saw operator and awareness of own capacity and performance is a table cut off saw operator to return to prior level of function. During the assessment, minimal to moderate modification of task was required and several treatment options were identified in the plan of care. This consultation required brief review of the medical and therapy history. Activity Tolerance Activity Tolerance: Tolerates 10 - 20 min activity with multiple rests Therapy Precautions Weight Bearing Status: WF General Rehab Precautions: Fall risk Cognition Overall Cognitive Status: Within Functional Limits Arousal/Alertness: Appropriate responses to stimuli Orientation Level: Oriented X4 Executive functioning: [facility] Safety Judgment: Good awareness of safety precautions Problem Solving: Able to problem solve independently Attention: Attends to distracted environment Hearing Status: [facility] Social Interaction: [facility] UE Assessment B UE AROM limited in [...] via walker Home Equipment: Wheeled Walker, Cane, Laundry Machine Mechanic Additional Comments: Been using walker for past few nights to practice before sx, otherwise indep with no AD Prior Level of Function Level of [place]: Independent with ADLs and functional transfers Lives With: Spouse Receives Help From: Family ADL Assistance: Independent Comments: Spouse performs the homemaking and they hire out yard work. Ambulates without a device. Past Medical History: Diagnosis Date CAD (coronary artery disease) Chest pain Complication of anesthesia slow to wake up GERD (gastroesophageal reflux disease) History of cardiac cath [place] (hard of hearing) Hyperlipidemia Hypertension HANNAH (juvenile [...] able to doff the L sock with sas statistical programmer, don same with sock aide, with extra time. Light min A to don shoe; dependent for tying. He was able to doff/don items on the R foot without use of AE. Patient educated on use of sas statistical programmer for donning underwear/pants with sas statistical programmer for greater ease on the L; was then able to step into the R while seated. Patient pleased with results of AE use. Request for sas statistical programmer and sock aid faxed to [facility] and [...] sit EOB Transfers Sit to Stand: Min Public Affairs Director: Wheeled walker Skilled Intervention: Vc for hand [...] AD Prior Level of Function Level of [place]: Independent with ADLs and functional transfers Lives With: Spouse Receives Help From: Family Comments: takes care of all housework Past Medical History: Diagnosis Date CAD (coronary artery disease) Chest pain Complication of anesthesia slow to wake up GERD (gastroesophageal reflux disease) History of cardiac cath [place] (hard of hearing) Hyperlipidemia Hypertension HANNAH (juvenile [...] return home at discharge with services from [facility] care and a referral was made at that time. Care management clothes marker met with the patient today post surgery and confirmed the plan remains for the patient to return home at discharge with services from [facility]. The patient lives in a 2 story home with 5 steps and a handrail on the right to enter. Their bedroom, bathroom, and laundry are on the first floor. The bathroom has a walk-in shower, with grab bars and a seat. The commode is handicap accessible. Notify home health care completed. Patient to return home with [facility] care at discharge. MARIAH Jiang Discharge Plan Shared UM/CC and RN Living Arrangements: Spouse/significant other Support Systems: Spouse/significant other Functional Status: Independent Type of Residence: Private residence Prior to Admission Home Care Services: No CC Disposition D/C Disposition: Home Health Care Services Related to Current Admission?: Yes Agency/Destination: [facility] Home Assisted Care Needs : Home health care Reason for Choice: Patient/Family prefernce documented in this encounter Care Teams (unrecognized sec tion and content) Tracer Powder Blender Relationship Specialty Start Date End Date Don Barrera MD [address] [facility] [place] [address] PCP - General Family Medicine 03/21/16 Vijay Viveros MD Consulting Physician Orthopedic Surgery 09/11/19 Tracer Powder Blender Relationship Specialty Start Date End Date Don Barrera MD [address] [facility] [place] [address] PCP - General Family Medicine 03/21/16 Vijay Viveros MD Consulting Physician Orthopedic Surgery 09/11/19 Tracer Powder Blender Relationship Specialty Start Date End Date Don Barrera MD [address] [facility] [place] [address] PCP - General Family Medicine 03/21/16 Vijay Viveros MD Consulting Physician Orthopedic Surgery 09/11/19 Tracer Powder Blender Relationship Specialty Start Date End Date Don Barrera MD [address] [facility] [place] [address] PCP - General Family Medicine 03/21/16 Vijay Viveros MD [address] [facility] [place] [address] Consulting Physician Orthopedic Surgery 09/11/19 Tracer Powder Blender Relationship Specialty Start Date End Date Don Barrera MD [address] [place] [address] PCP - General Family Medicine 03/21/16 Vijay Viveros MD [address] [place] [address] Consulting Physician Orthopedic Surgery 09/11/19 Tracer Powder Blender Relationship Specialty Start Date End Date Don Barrera MD PCP - General Internal Medicine 04/10/13 Tracer Powder Blender Relationship Specialty Start Date End Date Don Barrera MD [address] [place], [facility] PCP - General 06/24/19 Don Barrera MD [address] [place] [address] PCP - [facility] ACO Attributed Provider 10/22/21 Tracer Powder Blender Relationship Specialty Start Date End Date Don Barrera MD [address] [place] [address] PCP - General 06/24/19 Don Barrera MD [address] [place] [address] PCP - MSSP ACO Attributed Provider 10/22/21 Tracer Powder Blender Relationship Specialty Start Date End Date Don Barrera MD [address] [place] [address] PCP - MSSP ACO Attributed Provider 10/22/21 Don Barrera MD [address] [place] [address] PCP - General Family Medicine 07/22/23 Tracer Powder Blender Relationship Specialty Start Date End Date Don Barrera MD PCP - General Internal Medicine 04/10/13 Howard Soria OD [address] [place] [address] Optometry 08/29/23 Tracer Powder Blender Relationship Specialty Start Date End Date Don Barrera MD [address] [place] [address] PCP - MSSP ACO Attributed Provider 10/22/21 Don Barrera MD [address] [place] [address] PCP - General Family Medicine 07/22/23 Tracer Powder Blender Relationship Specialty Start Date End Date Don Barrera MD [address] [place] [address] PCP - MSSP ACO Attributed Provider 10/22/21 Don Barrera MD [address] [place] [address] PCP - General Family Medicine 07/22/23 Tracer Powder Blender Relationship Specialty Start Date End Date Don Barrera MD [address] [place] [address] PCP - MSSP ACO Attributed Provider 10/22/21 Don Barrera MD [address] [place] [address] PCP - General Family Medicine 07/22/23 Tracer Powder Blender Relationship Specialty Start Date End Date Don Barrera MD [address] [place] [address] PCP - General Family Medicine 03/21/16 Vijay Viveros MD [address] [place] [address] Consulting Physician Orthopedic Surgery 09/11/19 Tracer Powder Blender Relationship Specialty Start Date End Date Don Barrera MD [address] [place] [address] PCP - General Family Medicine 03/21/16 Vijay Viveros MD [address] [place] [address] Consulting Physician Orthopedic Surgery 09/11/19 Tracer Powder Blender Relationship Specialty Start Date End Date Don Barrera MD [address] [place] [address] PCP - MSSP ACO Attributed Provider 10/22/21 Don Barrera MD [address] [place] [address] PCP - General Family Medicine 07/22/23 Tracer Powder Blender Relationship Specialty Start Date End Date Don Barrera MD [address] [place] [address] PCP - MSSP ACO Attributed Provider 10/22/21 Don Barrera MD [address] [place] [address] PCP - General Family Medicine 07/22/23 Tracer Powder Blender Relationship Specialty Start Date End Date Don Barrera MD [address] [place] [address] PCP - MSSP ACO Attributed Provider 10/22/21 Don Barrera MD [address] [place] [address] PCP - General Family Medicine 07/22/23 Tracer Powder Blender Relationship Specialty Start Date End Date Don Barrera MD [address] [place] [address] PCP - MSSP ACO Attributed Provider 10/22/21 Don Barrera MD [address] [place] [address] PCP - General Family Medicine 07/22/23 Tracer Powder Blender Relationship Specialty Start Date End Date Don Barrera MD [address] [place] [address] PCP - MSSP ACO Attributed Provider 10/22/21 Don Barrera MD [address] [place] [address] PCP - General Family Medicine 07/22/23 Tracer Powder Blender Relationship Specialty Start Date End Date Don Barrera MD [address] [place] [address] PCP - MSSP ACO Attributed Provider 10/22/21 Don Barrera MD [address] [place] [address] PCP - General Family Medicine 07/22/23 Tracer Powder Blender Relationship Specialty Start Date End Date Don Barrera MD [address] [place] [address] PCP - MSSP ACO Attributed Provider 10/22/21 Don Barrera MD [address] [place] [phone] PCP - General Family Medicine 07/22/23 Tracer Powder Blender Relationship Specialty Start Date End Date Don Barrera MD [address] [place] [phone] PCP - General Family Medicine 03/21/16 Vijay Viveros MD [address] [place] [phone] Consulting Physician Orthopedic Surgery 09/11/19 Tracer Powder Blender Relationship Specialty Start Date End Date Don Barrera MD [address] [place] [address] PCP - [facility] ACO Attributed Provider 10/22/21 Don Barrera MD [address] [place] [phone] PCP - General Family Medicine 07/22/23 Tracer Powder Blender Relationship Specialty Start Date End Date Don Barrera MD [address] [place] [phone] PCP - General Family Medicine 03/21/16 Vijay Viveros MD [address] [place] [phone] Consulting Physician Orthopedic Surgery 09/11/19 Tracer Powder Blender Relationship Specialty Start Date End Date Don Barrera MD PCP - General Internal Medicine 04/10/13 Howard Soria OD [address] [facility] [address] [place] [phone] Optometry 08/29/23 Tracer Powder Blender Relationship Specialty Start Date End Date Don Barrera MD [address] [place] [address] PCP - MSSP ACO Attributed Provider 10/22/21 Don Barrera MD [address] [place] [phone] PCP - General Family Medicine 07/22/23 Tracer Powder Blender Relationship Specialty Start Date End Date Don Barrera MD [address] [place] [phone] PCP - [facility] ACO Attributed Provider 10/22/21 Don Barrera MD [address] [address] PCP - General Family Medicine 07/17/24 Tracer Powder Blender Relationship Specialty Start Date End Date Don Barrera MD [address] [address] PCP - [facility] ACO Attributed Provider 10/22/21 Don Barrera MD [address] [address] PCP - General Family Medicine 07/17/24 Tracer Powder Blender Relationship Specialty Start Date End Date Don Barrera MD [address] [address] PCP - [facility] ACO Attributed Provider 10/22/21 Don Barrera MD [address] [address] PCP - General Family Medicine 07/17/24 Tracer Powder Blender Relationship Specialty Start Date End Date Don Barrera MD [address] [place] [phone] PCP - General Family Medicine 03/21/16 Vijay Viveros MD [address] [place] [phone] Consulting Physician Orthopedic Surgery 09/11/19 Tracer Powder Blender Relationship Specialty Start Date End Date Don Barrera MD [address] [place] [phone] PCP - [facility] ACO Attributed Provider 10/22/21 Don Barrera MD [address] [place] [address] PCP - General Family Medicine 07/22/23 Tracer Powder Blender Relationship Specialty Start Date End Date Don Barrera MD [address] [place] [phone] PCP - [facility] ACO Attributed Provider 10/22/21 Don Barrera MD [address] [place] [address] PCP - General Family Medicine 07/22/23 Tracer Powder Blender Relationship Specialty Start Date End Date Don Barrera MD [address] [address] PCP - [facility] ACO Attributed Provider 10/22/21 Don Barrera MD [address] [address] PCP - General Family Medicine 07/22/23 Tracer Powder Blender Relationship Specialty Start Date End Date Don Barrera MD [address] [place] [phone] PCP - [facility] ACO Attributed Provider 10/22/21 Don Barrera MD [address] [place] [phone] PCP - General Family Medicine 07/17/24 Tracer Powder Blender Relationship Specialty Start Date End Date Don Barrera MD [address] [place] [phone] PCP - General Family Medicine 03/21/16 Vijay Viveros MD [address] [place] [phone] Consulting Physician Orthopedic Surgery 09/11/19 Tracer Powder Blender Relationship Specialty Start Date End Date Don Barrera MD [address] [address] PCP - [facility] ACO Attributed Provider 10/22/21 Don Barrera MD [address] [address] PCP - General Family Medicine 07/17/24 Tracer Powder Blender Relationship Specialty Start Date End Date Don Barrera MD [address] [address] PCP - [facility] ACO Attributed Provider 10/22/21 Don Barrera MD [address] [address] PCP - General Family Medicine 07/17/24 Tracer Powder Blender Relationship Specialty Start Date End Date Don Barrera MD [address] [address] PCP - [facility] ACO Attributed Provider 10/22/21 Don Barrera MD [address] [address] PCP - General Family Medicine 07/17/24 Tracer Powder Blender Relationship Specialty Start Date End Date Don Barrera MD [address] [address] PCP - [facility] ACO Attributed Provider 10/22/21 Don Barrera MD [address] [address] PCP - General Family Medicine 07/17/24 Tracer Powder Blender Relationship Specialty Start Date End Date Don Barrera MD [address] [address] PCP - [facility] ACO Attributed Provider 10/22/21 Don Barrera MD [address] [address] PCP - General Family Medicine 07/17/24 Team Status: Active Member Role/Relationship Status Dates Dr. Devan Barrera MD Primary Care Provider Active Team Status: Active Member Role/Relationship Status Dates Dr. Devan Barrrea MD Primary Care Provider Active Start: May 20, 2025 Dr. Jesus Alberto Wiggins MD Admit Provider Active Star t: May 20, 2025 Dr. Jesus Alberto Wiggins MD Attending [...] Active Start: May 26, 2025 Dr. Devan Brarera MD Referring Provider Active Start: May 26, [...] Provider Active St art: June 17, 2025 Tracer Powder Blender Relationship Specialty Start Date End Date Don Barrera MD [address] [address] PCP - [facility] ACO Attributed Provider 10/22/21 Don Barrera MD [address] [address] PCP - General Family Medicine 07/17/24 Daryl Dyson Loader Magazine GrinderFunctional Tester 07/17/25 Team Status: Active Member Role/Relationship Status [...] Active Start: June 15, 2025 Dr. Stan Ferraar DO Attending physician Active Start: June 15, [...] July 14, 2025 End: July 14, 2025 Tracer Powder Blender Relationship Specialty Start Date End Date Don Barrera MD [address] [place] [address] PCP - [facility] ACO Attributed Provider 10/22/21 Don Barrera MD [address] [place] [address] PCP - General Family Medicine 07/17/24 Daryl Dyson Functional Tester 07/17/25 Tracer Powder Blender Relationship Specialty Start Date End Date Don Barrera MD [address] [place] [address] PCP - MSS[facility] ACO Attributed Provider 10/22/21 oDn Barrera MD [address] [place] [address] PCP - General Family Medicine 07/17/24 Daryl Dyson Loader Magazine GrinderFunctional Tester 07/17/25 Tracer Powder Blender Relationship Specialty Start Date End Date Don Barrera MD [address] [place] [address] PCP - MSSP ACO Attributed Provider 10/22/21 Don Barrera MD [address] [place] [address] PCP - General Family Medicine 07/17/24 Daryl Dyson Loader Magazine GrinderFunctional Tester 07/17/25 08/05/25 <item> Privacy Markings (unrecogniz ed [...] or prosecute any alcohol or drug abuse patient.[facility] the event this information is protected by the Federal Confidentiality of Alcohol and Drug Abuse Patient Records regulations: The Federal rules restrict any use of the information to criminally investigate or prosecute any alcohol or drug abuse patient.[facility] the event this information is protected by the Federal Confidentiality of Alcohol and Drug Abuse Patient Records regulations: The Federal rules restrict any use of the information to criminally investigate or prosecute any alcohol or drug abuse patient.[facility] Scheduled Active and Recently Administ [...] (New Bag - Prov ider: Jaci Soto RN)1713 (Stopped - Provider: Jaci Soto RN) Scheduled [...] - Provider: Yusuf Mcarthur RN - Reason: Other)205 (Given - Provider: Juana Mclean RN) 021 [...] 1021 (Given - Provider: Mack Mckinley, ANNA) cholecalciferol (Vitamin D-3) tablet 125 mcg 125 mcg, nasoduodenal tube, Daily, First dose (after last modification) on 05/16/25 at 0900 0910 (Given - Provider: Yusuf Mcarthur RN) 0922 (Given - Provider: Yusuf Mcarthur RN) 1021 (Given - Provider: Mack Mckinley, ANNA) cyanocobalamin (Vitamin B-12) tablet 1,000 mcg 1,000 mcg, nasoduodenal tube, Daily, First dose (after last modification) on Sun05/16/25 at 0900 0910 (Given - Provider: Yusuf Mcarthur RN) 0923 (Given - Provider: Yusuf Mcarthur RN) 1021 (Given - Provider: Mack Mckinley, ANNA) enoxaparin (Lovenox) syringe 30 mg 30 mg, subcutaneous, Every 12 hours scheduled, First dose on Sun05/13/25 at 1200 1335 (Given - Provider: Yusuf Mcarthur RN)2326 (Given - Provider: Juana Mclean RN) 1332 (Given - Provider: Yusuf Mcarthur, ANNA) 0029 (Given - Provider: Doyle Greene RN)1228 (Given - Provider: Mack Mckinley, ANNA) metoprolol tartrate (Lopressor) tablet 12.5 mg 12.5 mg, nasoduodenal tube, 2 times daily, First dose (after last modification) on Sun05/16/25 at 0900, Hold for SBP<110, HR<70 0910 (Given - Provider: Yusuf Mcarthur RN)2059 (Given - Provider: Juana Mclean RN) 0923 (Given - Provider: Yusuf Mcarthur RN)2133 (Given - Provider: Doyle Greene RN) 1021 (Given - Provider: Mack Mckinley, ANNA)2100 (Due) pantoprazole (ProtoNix) EC tablet 40 mg 40 mg, oral, Daily before breakfast, First dose on Sun05/16/25 at 0745, Do not crush, chew, or [...] (after last modification) on 05/16/25 at 2100 2057 (Given - Provider: Juana Mclean, ANNA) 2133 (Given - Provider: Doyle Greene RN) 2100 [...] RN)2155 (Given - Provider: Екатерина Barrera RN) 0614 (Given - Provider: Rigoberto Mathews RN)1526 (Given - Provider: Beatriz Gallo RN)2135 (Given - Provider: Екатерина Barrera RN) 0800 (Not Given - Provider: Kodi Nunes LPN - Reason: Patient/family refused)1500 (Due - Provider: Tracy Cruz, [place])2300 (Due - Provider: Tracy Cruz, [place]) cholecalciferol (Vitamin D-3) tablet 125 mcg 125 [...] RN) 0614 (Given - Provider: Rigoberto Mathews RN)1852 (Given - Provider: Beatriz Gallo RN) 0848 [...] 2100 0951 (Given - Provider: Beatriz Gallo RN)2155 (Given - Provider: Екатерина Barrera RN) 0838 (Given - Provider: Beatriz Gallo RN)2135 (Given - Provider: Екатерина Barrera RN) 0819 (Given - Provider: Kodi Nunes LPN)2099 (Due) lisinopril tablet 5 mg 5 mg, [...] (Given - Provider: Kodi Nunes LPN)2099 (Due) vptzgdwy-iyrabhutw-vxgQ METHasone (Maxitrol) 3.5mg/mL-10,000 unit/mL-0.1 % ophthalmic suspension [...] stools 0950 (Given - Provider: Beatriz Gallo RN)2156 (Given - Provider: Екатерина Barrera RN) 0931 [...] BE BASED ON THE PRIMARY CLINICAL RECORDS. [facility]. provides no warranty or guarantee of the accuracy or completeness of information in this document.
--- NOTE | 2025-08-09 17:28 | CT_ITS ---
PROCEDURE: CT BRAIN/HEAD WITHOUT CONTRAST 08/09/2025 REASON FOR EXAM: DYSPHASIA, UNEQUAL PUPILS TECHNIQUE: Procedure Code: CTBR Modality: CT Procedure: BRAIN/HEAD WITHOUT CONTRAST Coronal and Sagittal reconstruction series were provided. One or more dose reduction techniques were used (e.g., Automated exposure control, adjustment of the mA and/or kV according to patient size, use of iterative reconstruction technique. RADIATION DOSE SUMMARY: CTDlvol: 44.99 mGy DLP: 796.11 mGycm COMPARISON: 07/14/2025 FINDINGS: No acute intracranial hemorrhage, extra-axial collection, mass effect or evidence of acute infarct. Moderate generalized brain parenchymal volume loss and chronic microangiopathic changes. Atherosclerotic vascular calcifications. Absent [place] ocular lenses. Intact skull base and calvarium. Clear paranasal sinuses and mastoid air cells. CT/Brain/Head without Contrast IMPRESSION: No evidence of acute intracranial pathology. Moderate parenchymal volume loss and chronic microangiopathic changes. Reading Location: [id number]
== END | disposition home or self-care (01) ==
LOC: RAD 17:04
PROVIDERS: PCP Family Medicine; Referring Provider Family Medicine Geriatric Medicine; Visit Provider Family Medicine Geriatric Medicine
DX: R13.10 Dysphagia, unspecified (principal); H57.02 Anisocoria
CPT/HCPCS: 70450